=== PATIENT | female | born 1945 | race Caucasian/White ===

== ENCOUNTER → 2016-08-12 | Outpatient (CLI) | payer MEDICARE, BC | END | disposition home or self-care (01) | LOC: LABWHC1 08:29 | PROVIDERS: ATTEND Obstetrics & Gynecology | DX: E07.9 Disorder of thyroid, unspecified (principal) | CPT/HCPCS: 36415; 84443; 84481 ==

== ENCOUNTER → 2017-09-11 | Outpatient (CLI) | payer MEDICARE, BC ==
[2017-09-11 10:21] LABS: Partial Thromboplastin Time 25.2 sec (22.0-30.0); Prothrombin Time 9.6 sec (9.0-12.0)
[2017-09-11 10:34] LABS: Anion Gap 8 mmol/L; Blood Urea Nitrogen 14 mg/dL (7-17); Calcium 9.5 mg/dL (8.4-10.2); Carbon Dioxide 28 mmol/L (22-30); Chloride 101 mmol/L (98-107); Glucose 87 mg/dL (74-99); Potassium 4.5 mmol/L (3.5-5.1); Sodium 137 mmol/L (137-145)
[2017-09-11 11:00] LABS: Appearance,Urine Clear (Clear); Bacteria,Urine Rare /hpf; Bilirubin,Urine Negative (Negative); Blood,Urine Negative (Negative); Color,Urine Yellow; Glucose,Urine (UA) Negative (Negative); Ketones,Urine Negative (Negative); Leukocyte Esterase,Urine Large (Negative); Mucus,Urine Rare /hpf; Protein,Urine Negative (Negative); RBC,Urine <1 /hpf (0-5); Specific Gravity,Urine 1.011 (1.001-1.035); Squamous Epithelial Cell,Urine 4 /hpf (0-4); Urobilinogen,Urine <2.0 mg/dL (<2.0); WBC,Urine 23 /hpf (0-5)
[2017-09-11 11:02] LABS: Basophils % (A) 1 %; Eosinophils # (A) 0.2 k/uL (0-0.7); Eosinophils % (A) 2 %; HCT 42.6 % (34.0-46.0); HGB 14.2 gm/dL (11.4-16.0); Lymphocytes # (A) 1.7 k/uL (1.0-4.8); Lymphocytes % (A) 24 %; MCH 29.6 pg (25.0-35.0); MCHC 33.2 g/dL (31.0-37.0); MCV 89.3 fL (80.0-100.0); Mean Platelet Volume 7.6; Monocytes # (A) 0.6 k/uL (0-1.0); Monocytes % (A) 8 %; Neutrophils # (A) 4.5 k/uL (1.3-7.7); Neutrophils % (A) 63 %; Platelet Count 243 k/uL (150-450); RBC 4.78 m/uL (3.80-5.40); RDW 13.1 % (11.5-15.5); WBC 7.2 k/uL (3.8-10.6)
--- NOTE | 2017-09-11 15:55 | XR ---
EXAMINATION TYPE: XR chest 2V DATE OF EXAM: 09/11/2017 COMPARISON: 04/10/2017 HISTORY: Z01.818 TECHNIQUE: Frontal and lateral views of the chest are obtained. FINDINGS: There is no focal air space opacity, pleural effusion, or pneumothorax seen. The cardiac silhouette size is stable. Interstitium is prominent and stable. The osseous structures are intact. IMPRESSION: No acute cardiopulmonary process. Stable borderline heart size and possible interstitial lung disease.
== END | disposition home or self-care (01) ==
LOC: LABPAT 08:50
PROVIDERS: ATTEND Orthopaedic Surgery Orthopaedic Surgery of the Spine
DX: Z01.818 Encounter for other preprocedural examination (principal); G95.9 Disease of spinal cord, unspecified
CPT/HCPCS: 36415; 71046; 80048; 81001; 85025; 85610; 85730; 86850; 86900; 86901

== ENCOUNTER 2017-09-18 08:46 | Observation (INO) | payer MEDICARE, BC ==
[2017-09-18 09:27] LABS: Basophils % (A) 0 %; Eosinophils # (A) 0.6 k/uL (0-0.7); Eosinophils % (A) 5 %; HCT 43.5 % (34.0-46.0); HGB 14.9 gm/dL (11.4-16.0); Lymphocytes % (A) 8 %; MCH 30.2 pg (25.0-35.0); MCHC 34.4 g/dL (31.0-37.0); MCV 87.8 fL (80.0-100.0); Mean Platelet Volume 7.4; Monocytes # (A) 0.8 k/uL (0-1.0); Monocytes % (A) 7 %; Neutrophils # (A) 9.9 k/uL (1.3-7.7); Neutrophils % (A) 79 %; Platelet Count 273 k/uL (150-450); RBC 4.95 m/uL (3.80-5.40); RDW 13.1 % (11.5-15.5); WBC 12.5 k/uL (3.8-10.6)
--- NOTE | 2017-09-18 09:36 | CT ---
EXAMINATION TYPE: CT brain wo con DATE OF EXAM: 09/18/2017 COMPARISON: 05/18/2015 HISTORY: 72-year-old female Syncope TECHNIQUE: Examination was done in axial plane without intravenous contrast. Coronal and sagittal r econstructions performed. CT DLP: 1121 mGycm Automated exposure control for dose reduction was used. FINDINGS: There is no evidence of acute intracranial hemorrhage, acute ischemic changes, mass, mass-effect, or extra-axial fluid collection. There is no effacement of cerebral sulci or basal subarachnoid cister ns. There is no hydrocephalus. There is no midline shift. Ontiveros-white matter distinction is preserv ed. Paranasal sinuses and mastoid air cells well pneumatized. Orbits and globes are intact. IMPRESSION: No acute intracranial abnormality seen.
--- NOTE | 2017-09-18 09:37 | XR ---
EXAMINATION TYPE: XR chest 2V DATE OF EXAM: 09/18/2017 COMPARISON: 09/11/2017 TECHNIQUE: PA and lateral views submitted. HISTORY: Syncope FINDINGS: The lungs are clear and there is no pneumothorax, pleural effusion, or focal pneumonia. Interstitia l process noted with degenerative change of the spine arthropathy of the shoulders. Surgical clips in the right upper quadrant. Arthropathy of the shoulders noted. IMPRESSION: 1. No acute process. Correlate for chronic interstitial lung disease.
[2017-09-18 09:43] LABS: Prothrombin Time 9.6 sec (9.0-12.0)
[2017-09-18 10:59] LABS: Albumin 3.8 g/dL (3.5-5.0); Calcium 9.5 mg/dL (8.4-10.2); Magnesium 2.1 mg/dL (1.6-2.3); Potassium 4.5 mmol/L (3.5-5.1); Total Bilirubin 0.6 mg/dL (0.2-1.3); Total Protein 6.6 g/dL (6.3-8.2)
--- NOTE | 2017-09-18 12:02 | ED ---
General Adult HPI - General Chief complaint: Fall Stated complaint: Syncope Time Seen by Provider: 09/18/17 08:53 Source: patient, EMS Mode of arrival: EMS Limitations: no limitations - History of Present Illness Initial comments: Patient complains of chest pain this morning. She also had lightheadedness and dizziness. She does not feel well. She has no back pain. She has no neck pain or stiffness. She has no headache. She was not doing anything when she began to feel this way. She has taken no medication for this. She denies any sick contacts. She has no swelling in the arms or legs. She has no palpitations. - Related Data Home Medications Medication Instructions Recorded Confirmed Ipratropium-Albuterol Nebulize 3 ml INHALATION RT-QID PRN 05/18/15 09/18/17 [Duoneb 0.5 mg-3 mg/3 ml Soln] Losartan Potassium 100 mg PO QAM 05/18/15 09/18/17 Simvastatin [Zocor] 40 mg PO DAILY 05/18/15 09/18/17 Albuterol Inhaler [Ventolin Hfa 2 puff INHALATION RT-QID PRN 04/10/17 09/18/17 Inhaler] Aspirin EC [Ecotrin Low Dose] 81 mg PO DAILY 04/10/17 09/18/17 Nitrofurantoin Monohyd/M-Cryst 100 mg PO Q12HR 09/14/17 09/18/17 [Macrobid] predniSONE 10 mg PO DAILY PRN 09/14/17 09/18/17 Previous Rx's Medication Instructions Recorded Budesonide [Pulmicort] 0.5 mg INHALATION BID #60 neb 04/12/17 Pantoprazole [Protonix] 40 mg PO AC-BRKFST #30 tab 04/12/17 Allergies Allergy/AdvReac Type Severity Reaction Status Date / Time No Known Allergies Allergy Verified 09/18/17 09:49 Review of Systems ROS Statement: Those systems with pertinent positive or pertinent negative responses have been documented in the HPI. ROS Other: All systems not noted in ROS Statement are negative. Past Medical History Past Medical History: Asthma, Cancer, Hypertension Additional Past Medical History / Comment(s): skin ca History of Any Multi-Drug Resistant Organisms: None Reported Past Surgical History: Cholecystectomy, Heart Catheterization, Tonsillectomy, Tubal Ligation Additional Past Surgical History / Comment(s): cateract surg skin surg. 2 heart caths no stent Past Psychological History: No Psychological Hx Reported Smoking Status: Former smoker Past Alcohol Use History: Occasional Past Drug Use History: None Reported - Past Family History Brother(s) Family Medical History: Coronary Artery Disease (CAD) Additional Family Medical History / Comment(s): "bad heart" aneurysm Sister(s) Family Medical History: Cancer Additional Family Medical History / Comment(s): breast cancer Mother Family Medical History: Cancer, Coronary Artery Disease (CAD) Additional Family Medical History / Comment(s): "heart disease" lymphoma Father Family Medical History: Coronary Artery Disease (CAD) Additional Family Medical History / Comment(s): Patient has 2 children one daughter with Crohn's disease. General Exam Limitations: no limitations General appearance: alert, in no apparent distress Head exam: Present: atraumatic, normocephalic, normal inspection Eye exam: Present: normal appearance, PERRL, EOMI. Absent: scleral icterus, conjunctival injection, periorbital swelling ENT exam: Present: normal exam, mucous membranes moist Neck exam: Present: normal inspection. Absent: tenderness, meningismus, lymphadenopathy Respiratory exam: Present: normal lung sounds bilaterally. Absent: respiratory distress, wheezes, rales, rhonchi, stridor Cardiovascular Exam: Present: regular rate, normal rhythm, normal heart sounds. Absent: systolic murmur, diastolic murmur, rubs, gallop, clicks GI/Abdominal exam: Present: soft, normal bowel sounds. Absent: distended, tenderness, guarding, rebound, rigid Extremities exam: Present: normal inspection, full ROM, normal capillary refill. Absent: tenderness, pedal edema, joint swelling, calf tenderness Back exam: Present: normal inspection Neurological exam: Present: alert, oriented X3, CN II-XII intact Psychiatric exam: Present: normal affect, normal mood Skin exam: Present: warm, dry, intact, normal color. Absent: rash Course Vital Signs 09/18/17 09/18/17 09/18/17 08:48 09:58 11:31 Temperature 99.2 F Pulse Rate 96 87 98 Respiratory 16 16 16 Rate Blood Pressure 142/65 114/65 106/55 O2 Sat by Pulse 96 98 96 Oximetry EKG Findings - EKG Comments: EKG Findings:: Twelve-lead EKG shows ventricular rate 92 bpm, normal AL interval and QRS complex is, no ST elevation or depression, interpreted by me as normal sinus rhythm. Medical Decision Making - Medical Decision Making Patient complains of chest pain, lightheadedness. I'm concern for ACS. I will consult cardiology. Patient will be admitted to the hospital. - Lab Data Result diagrams: 09/18/17 09:05 09/18/17 09:55 Lab Results 09/18/17 09/18/17 09/18/17 Range/Units 09:05 09:05 09:55 WBC 12.5 H (3.8-10.6) k/uL RBC 4.95 (3.80-5.40) m/uL Hgb 14.9 (11.4-16.0) gm/dL Hct 43.5 (34.0-46.0) % MCV 87.8 (80.0-100.0) fL MCH 30.2 (25.0-35.0) pg MCHC 34.4 (31.0-37.0) g/dL RDW 13.1 (11.5-15.5) % Plt Count 273 (150-450) k/uL Neutrophils % 79 % Lymphocytes % 8 % Monocytes % 7 % Eosinophils % 5 % Basophils % 0 % Neutrophils # 9.9 H (1.3-7.7) k/uL Lymphocytes # 1.0 (1.0-4.8) k/uL Monocytes # 0.8 (0-1.0) k/uL Eosinophils # 0.6 (0-0.7) k/uL Basophils # 0.0 (0-0.2) k/uL PT 9.6 (9.0-12.0) sec INR 1.0 (<1.2) APTT 19.0 L (22.0-30.0) sec Sodium (137-145) mmol/L Potassium (3.5-5.1) mmol/L Chloride (98-107) mmol/L Carbon Dioxide (22-30) mmol/L Anion Gap mmol/L BUN (7-17) mg/dL Creatinine (0.52-1.04) mg/dL Est GFR (CKD-EPI)AfAm (>60 ml/min/1.73 sqM) Est GFR (CKD-EPI)NonAf (>60 ml/min/1.73 sqM) Glucose (74-99) mg/dL Calcium (8.4-10.2) mg/dL Magnesium (1.6-2.3) mg/dL Total Bilirubin (0.2-1.3) mg/dL AST (14-36) U/L ALT (9-52) U/L Alkaline Phosphatase (38-126) U/L Troponin I <0.012 (0.000-0.034) ng/mL Total Protein (6.3-8.2) g/dL Albumin (3.5-5.0) g/dL 09/18/17 Range/Units 09:55 WBC (3.8-10.6) k/uL RBC (3.80-5.40) m/uL Hgb (11.4-16.0) gm/dL Hct (34.0-46.0) % MCV (80.0-100.0) fL MCH (25.0-35.0) pg MCHC (31.0-37.0) g/dL RDW (11.5-15.5) % Plt Count (150-450) k/uL Neutrophils % % Lymphocytes % % Monocytes % % Eosinophils % % Basophils % % Neutrophils # (1.3-7.7) k/uL Lymphocytes # (1.0-4.8) k/uL Monocytes # (0-1.0) k/uL Eosinophils # (0-0.7) k/uL Basophils # (0-0.2) k/uL PT (9.0-12.0) sec INR (<1.2) APTT (22.0-30.0) sec Sodium 139 (137-145) mmol/L Potassium 4.5 (3.5-5.1) mmol/L Chloride 104 (98-107) mmol/L Carbon Dioxide 24 (22-30) mmol/L Anion Gap 11 mmol/L BUN 20 H (7-17) mg/dL Creatinine 0.83 (0.52-1.04) mg/dL Est GFR (CKD-EPI)AfAm 83 (>60 ml/min/1.73 sqM) Est GFR (CKD-EPI)NonAf 72 (>60 ml/min/1.73 sqM) Glucose 101 H (74-99) mg/dL Calcium 9.5 (8.4-10.2) mg/dL Magnesium 2.1 (1.6-2.3) mg/dL Total Bilirubin 0.6 (0.2-1.3) mg/dL AST 20 (14-36) U/L ALT 40 (9-52) U/L Alkaline Phosphatase 98 (38-126) U/L Troponin I (0.000-0.034) ng/mL Total Protein 6.6 (6.3-8.2) g/dL Albumin 3.8 (3.5-5.0) g/dL Disposition Clinical Impression: Chest pain Disposition: ADMITTED IP TO THIS HOSP Condition: Fair Referrals: Rich Avila MD [Primary Care Provider] - 1-2 days Time of Disposition: 12:01
[2017-09-18] MEDS ORDERED: ONDANSETRON 4 MG/2 ML VIAL IVP PRN (12:09)
[2017-09-18] MEDS ORDERED: NALOXONE 0.4 MG/ML 1 ML VIAL IV PRN (12:09)
[2017-09-18] MEDS ORDERED: ALBUTEROL INHALER 60 PUFF/8 GM INHALER INHALATION PRN (12:11)
--- NOTE | 2017-09-18 14:44 | P.PN ---
Progress Note - Text Progress Note Date: 09/18/17 The patient is a 72-year-old female who is known to our service. She had been scheduled to undergo anterior cervical discectomy and fusion for her cervical stenosis and upper extremity radiculopathy, scheduled for this September 20. She presented today after having an episode of passing out at home from a standing position. She says she stood up from her bed and almost blacked out and fell to the floor and was unable to get up after that. She denies specific chest pain or lightheadedness. She says that she was brought to the emergency room via ambulance is being admitted in terms of her heart issues. She denies any chest pain or shortness of breath but she says that she does have some chest heaviness currently she relates this to her asthma. She is known to our service for her cervical spine issues. She is known to have cervical disc degeneration with some stenosis at her cervical spine. She has neck pain with upper extremity radiculopathy and has been through conservative treatment however has not had any significant benefit despite conservative care. She had been scheduled for surgical intervention for this week September 20 for anterior cervical discectomy and fusion. This is a surgery that would likely last approximately 2 hours and would have approximately 100 mL of blood loss under general anesthetic. She had undergone some screening and preoperative evaluation for clearance for this and was planning to proceed with her surgery for Monday. Given this new episode, we will certainly have to see if she would be medically cleared for surgical intervention. THE SURGERY IS NOT EMERGENT. The patient has been having conservative treatment and is interested in pursuing surgery as soon as she is able but given these new episodes, it would be okay for the patient to be canceled for this Monday to be rescheduled at a later date when she would be cleared. Currently she is hoping that she can be cleared and that will be up to medicine and cardiology service. I discussed this with her and discussed her risks of surgical intervention in the face of cardiac issues and she understands. We will discuss the case further with medicine and cardiology once further workup has been performed to see further recommendations if she is able to proceed with surgery
[2017-09-18 15:26] LABS: Appearance,Urine Cloudy (Clear); Bacteria,Urine Rare /hpf; Bilirubin,Urine Negative (Negative); Blood,Urine Negative (Negative); Color,Urine Yellow; Glucose,Urine (UA) Negative (Negative); Ketones,Urine Negative (Negative); Leukocyte Esterase,Urine Large (Negative); Mucus,Urine Rare /hpf; Nitrite,Urine Negative (Negative); Protein,Urine Negative (Negative); RBC,Urine 3 /hpf (0-5); Specific Gravity,Urine 1.015 (1.001-1.035); Squamous Epithelial Cell,Urine 1 /hpf (0-4); Urobilinogen,Urine <2.0 mg/dL (<2.0); WBC,Urine 126 /hpf (0-5)
[2017-09-18] MEDS: MORPHINE SULFATE 4 MG/ML SYRINGE IV PRN ×2 (15:54→20:14)
--- NOTE | 2017-09-18 19:06 | P.HPIM ---
History of Present Illness H&P Date: 09/18/17 Chief Complaint: Chest congestion, lightheadedness 72 years old female patient of Dr. Austin Prado, Dr. Guadalupe with past medical history of asthma, skin cancer, hypertension, osteoarthritis cervical stenosis requiring elective cervical spine surgery by Dr. Prado in 2 days, presented last night with shortness of breath chest congestion nausea chills nonproductive cough that started few days ago. She was started on steroids, nebulized budesonide and albuterol, and antibiotic which she cannot recall patient was recently cleared by Dr. Holcomb for a stress test 1-1/2 weeks ago As per ER history, patient was coming in for chest pain, but rather the patient past complaint of chest congestion and lightheadedness, chills and cough shortness of breath. Patient was lightheaded, patient denies any syncope however her legs gave out, she does have chronic bilateral upper extremity numbness and chronic bilateral lower extremity weakness as a result of cervical stenosis with myelopathy, worse after [place] time. Hence the elective surgery coming up in 2 days and I was a bit disappointed on the ER triaging for this patient as the patient is coming in for the cardiac pathway,. The ER physician is not aware about the recent normal stress test 1-1/2 weeks nor is he aware about the scheduled cervical spine surgery in 2 days. Review of records shows that she was last admitted from our facility April 2017 for asthma exacerbation, no imaging studies performed at that time except for chest x-ray, no chest CT. patient is a former smoker, no previous intubations for her asthma, Emergency room, imaging studies include CT of the brain that failed to reveal any acute intracranial abnormality, chest x-ray shows no acute pulmonary process , patient is chronic interstitial lung disease, EKG shows normal sinus rhythm with right axis deviation, urinalysis shows 126 WBC with pyuria and leukocytosis of 12.5 troponins 2.01 2.012, consult made with Dr. Guadalupe with CT high resolution, treat urinary tract infection and acute bronchitis, and shortness of breath . D-dimer to be obtained, ceftriaxone IV for UTI, cultures to be obtained Review of Systems Constitutional: Reports as per HPI, Reports chills, Denies anorexia, Denies chronic headaches, Denies chronic pain, Denies daytime sleepiness, Denies fatigue, Denies fever, Denies lethargy, Denies malaise, Denies night sweats, Denies poor appetite, Denies sweats, Denies weakness, Denies weight gain, Denies weight loss Ears, nose, mouth and throat: Reports as per HPI, Reports nasal congestion, Denies ant. neck pain, Denies bleeding gums, Denies dental pain, Denies dysphagia, Denies epistaxis, Denies headache, Denies hoarseness, Denies mouth pain, Denies nasal discharge, Denies neck fullness/pressure, Denies neck lump, Denies nose pain, Denies odynophagia, Denies post-nasal drip, Denies sinus pain , Denies sinus pressure, Denies swelling in mouth, Denies swelling in throat, Denies sore throat, Denies vertigo, Denies voice changes Cardiovascular: Reports as per HPI, Reports dyspnea on exertion, Reports shortness of breath Respiratory: Reports cough Gastrointestinal: Reports as per HPI, Denies abdominal pain, Denies belching, Denies bloating, Denies BRBPR, Denies change in bowel habits, Denies coffee ground emesis, Denies constipation, Denies diarrhea, Denies dyspepsia, Denies early satiety, Denies excessive gas, Denies heartburn, Denies hematemesis, Denies hematochezia, Denies indigestion, Denies jaundice, Denies lactose intolerance, Denies loss of appetite, Denies melena, Denies nausea, Denies vomiting Genitourinary: Reports as per HPI, Denies abnormal vaginal bleeding, Denies decreased libido, Denies difficulty conceiving, Denies difficulty voiding, Denies dysmenorrhea, Denies dyspareunia, Denies dysuria, Denies flank pain, Denies genital sores, Denies hematuria, Denies hot flashes, Denies incomplete emptying, Denies kidney stones, Denies menorrhagia, Denies mixed incontinence, Denies nocturia, Denies pelvic pain, Denies post void dribbling, Denies , Denies prolapse symptoms, Denies stress incontinence, Denies urge incontinence , Denies urgency, Denies urinary frequency, Denies vaginal discharge, Denies vaginal dryness, Denies vaginal itching, Denies vaginal odor Menstruation: Reports as per HPI Musculoskeletal: Reports as per HPI, Denies arm numbness/tingling, Denies atrophy, Denies fractures, Denies frequent falls, Denies gait dysfunction, Denies hot joints, Denies leg numbness/tingling, Denies limitation of motion, Denies loss of height, Denies low back pain, Denies morning stiffness, Denies muscle cramps, Denies muscle weakness, Denies myalgias, Denies neck pain, Denies neck stiffness, Denies prior amputations, Denies redness of joints, Denies shooting arm pain, Denies shooting leg pain Integumentary: Reports as per HPI, Denies acne, Denies boils, Denies brittle nails, Denies change in hair/nails, Denies color changes, Denies darkening of skin, Denies depigmentation, Denies dryness, Denies foot/leg ulcers, Denies growths, Denies hirsutism, Denies lesions, Denies onychomycosis, Denies pruritus , Denies rash, Denies sores, Denies striae, Denies unusual bruising, Denies wounds Neurological: Reports as per HPI, Reports gait dysfunction, Reports numbness, Reports paresthesias, Denies aphasia, Denies ataxia, Denies balance difficulties , Denies burning pain, Denies change in mentation, Denies change in smell/taste , Denies change in speech, Denies confusion, Denies convulsions, Denies double vision, Denies head injury, Denies headaches, Denies hearing difficulties, Denies lack of coordination, Denies loss of vision, Denies memory loss, Denies migraines, Denies motor disturbance, Denies paralysis, Denies seizures, Denies sensory deficit, Denies spasticity, Denies syncope, Denies tic, Denies tingling , Denies transient paralysis, Denies tremors, Denies vertigo, Denies weakness, Denies visual changes Psychiatric: Reports as per HPI, Denies anhedonia, Denies anxiety, Denies anxiety attacks, Denies change in appetite, Denies change in libido, Denies change in sleep habits, Denies confusion, Denies depression, Denies difficulty concentrating, Denies disorientation, Denies hallucinations, Denies hopelessness , Denies hypersomnia, Denies insomnia, Denies irritability, Denies memory loss, Denies mood swings, Denies paranoia, Denies sadness/tearfulness, Denies sleep disturbances, Denies suicidal ideation Endocrine: Reports as per HPI, Denies cold intolerance, Denies deepening of the voice, Denies excessive sweating, Denies excessive thirst, Denies fatigue, Denies flushing, Denies heat intolerance, Denies high blood sugars, Denies increase in ring/shoe/hat size, Denies low blood sugars, Denies nocturia, Denies palpitations, Denies polydipsia, Denies polyphagia, Denies polyuria, Denies proptosis, Denies recent glucocorticoid use, Denies thyroid mass, Denies weight change Hematologic/Lymphatic: Reports as per HPI, Denies easy bleeding, Denies easy bruising, Denies lymphadenopathy, Denies lymphedema, Denies thrombophilia Allergic/Immunologic: Reports as per HPI, Denies allergic rhinitis, Denies anaphylaxis, Denies angioedema, Denies gluten intolerance, Denies persistent infections, Denies seasonal allergies, Denies urticaria, Denies wheezing Past Medical History Past Medical History: Asthma, Cancer, Hyperlipidemia, Hypertension, Osteoarthritis (OA) Additional Past Medical History / Comment(s): Current UIT-has 2 more doses of macrobid to take yet, skin cancer with removals, arthritis multiple joints, back and cervical pain. History of Any Multi-Drug Resistant Organisms: None Reported Past Surgical History: Cholecystectomy, Heart Catheterization, Hysterectomy, Tonsillectomy, Tubal Ligation Additional Past Surgical History / Comment(s): 2 cardiac caths without intervention, bilateral cataract removal with lens implants, skin cancer removals, cyst removed from neck, colonoscopy. Past Anesthesia/Blood Transfusion Reactions: No Reported Reaction Additional Past Anesthesia/Blood Transfusion Reaction / Comment(s): Pt has never received blood. Smoking Status: Former smoker - Past Family History Brother(s) Family Medical History: Coronary Artery Disease (CAD) Additional Family Medical History / Comment(s): "bad heart" aneurysm Sister(s) Family Medical History: Cancer Additional Family Medical History / Comment(s): breast cancer Mother Family Medical History: Cancer, Coronary Artery Disease (CAD) Additional Family Medical History / Comment(s): Lymphoma, had a pacemaker. Mother at the age of 92yrs. Father Family Medical History: Coronary Artery Disease (CAD), Myocardial Infarction (NC ) Additional Family Medical History / Comment(s): Father of a NC at the age of 63 yrs. Medications and Allergies Home Medications Medication Instructions Recorded Confirmed Type Ipratropium-Albuterol Nebulize 3 ml INHALATION RT-QID PRN 05/18/15 09/18/17 History [Duoneb 0.5 mg-3 mg/3 ml Soln] Losartan Potassium 100 mg PO QAM 05/18/15 09/18/17 History Simvastatin [Zocor] 40 mg PO DAILY 05/18/15 09/18/17 History Albuterol Inhaler [Ventolin Hfa 2 puff INHALATION RT-QID PRN 04/10/17 09/18/17 History Inhaler] Aspirin EC [Ecotrin Low Dose] 81 mg PO DAILY 04/10/17 09/18/17 History Budesonide [Pulmicort] 0.5 mg INHALATION BID #60 neb 04/12/17 09/18/17 Rx Pantoprazole [Protonix] 40 mg PO AC-BRKFST #30 tab 04/12/17 09/18/17 Rx Nitrofurantoin Monohyd/M-Cryst 100 mg PO Q12HR 09/14/17 09/18/17 History [Macrobid] predniSONE 10 mg PO DAILY PRN 09/14/17 09/18/17 History Allergies Allergy/AdvReac Type Severity Reaction Status Date / Time No Known Allergies Allergy Verified 09/18/17 09:49 Physical Exam Vitals: Vital Signs Temp Pulse Pulse Resp BP BP Pulse Ox 09/18/17 18:07 95 16 09/18/17 18:02 98 F 95 16 124/61 93 L 09/18/17 17:25 99.2 F 96 16 123/54 96 09/18/17 15:42 96 16 123/54 96 09/18/17 14:29 98 16 118/60 95 09/18/17 13:08 82 16 123/58 98 09/18/17 11:31 98 16 106/55 96 09/18/17 09:58 87 16 114/65 98 09/18/17 08:48 99.2 F 96 16 142/65 96 Intake and Output 09/18/17 09/18/17 09/18/17 06:59 14:59 22:59 Other: Voiding Method Toilet Weight 83.915 kg 83.1 kg Patient Weight 09/19/17 06:59 Weight 83.1 kg - Constitutional General appearance: average body habitus, disheveled, no acute distress - EENT Eyes: anicteric sclerae, EOMI, PERRLA, dentition normal, normal appearance ENT: NA/AT, normal oropharynx - Neck Neck: normal ROM - Respiratory Respiratory: bilateral: CTA, negative: diminished, dullness, rales - Cardiovascular Rhythm: regular Heart sounds: normal: S1, S2 Abnormal Heart Sounds: no systolic murmur, no diastolic murmur, no rub, no S3 Gallop, no S4 Gallop, no click, no other - Gastrointestinal General gastrointestinal: normal bowel sounds, soft - Integumentary Integumentary: decreased turgor, normal - Neurologic Neurologic: CNII-XII intact - Musculoskeletal Musculoskeletal: strength equal bilaterally - Psychiatric Psychiatric: A&O x's 3, appropriate affect, intact judgment & insight Results CBC & Chem 7: 09/18/17 09:05 09/18/17 09:55 Labs: Abnormal Lab Results - Last 24 Hours (Table) 09/18/17 09/18/17 09/18/17 Range/Units 09:05 09:05 09:55 WBC 12.5 H (3.8-10.6) k/uL Neutrophils # 9.9 H (1.3-7.7) k/uL APTT 19.0 L (22.0-30.0) sec BUN 20 H (7-17) mg/dL Glucose 101 H (74-99) mg/dL Urine Appearance (Clear) Ur Leukocyte Esterase (Negative) Urine WBC (0-5) /hpf Urine WBC Clumps (None) /hpf Urine Bacteria (None) /hpf Urine Mucus (None) /hpf 09/18/17 Range/Units 15:18 WBC (3.8-10.6) k/uL Neutrophils # (1.3-7.7) k/uL APTT (22.0-30.0) sec BUN (7-17) mg/dL Glucose (74-99) mg/dL Urine Appearance Cloudy H (Clear) Ur Leukocyte Esterase Large H (Negative) Urine WBC 126 H (0-5) /hpf Urine WBC Clumps Rare H (None) /hpf Urine Bacteria Rare H (None) /hpf Urine Mucus Rare H (None) /hpf Laboratory Results WBC 12.5 k/uL (3.8-10.6) H 03/12/18 09:05 RBC 4.95 m/uL (3.80-5.40) 09/18/17 09:05 Hgb 14.9 gm/dL (11.4-16.0) 09/18/17 09:05 Hct 43.5 % (34.0-46.0) 09/18/17 09:05 MCV 87.8 fL (80.0-100.0) 09/18/17 09:05 MCH 30.2 pg (25.0-35.0) 09/18/17 09:05 MCHC 34.4 g/dL (31.0-37.0) 09/18/17 09:05 RDW 13.1 % (11.5-15.5) 09/18/17 09:05 Plt Count 273 k/uL (150-450) 09/18/17 09:05 Neutrophils % 79 % 09/18/17 09:05 Lymphocytes % 8 % 09/18/17 09:05 Monocytes % 7 % 09/18/17 09:05 Eosinophils % 5 % 09/18/17 09:05 Basophils % 0 % 09/18/17 09:05 Neutrophils # 9.9 k/uL (1.3-7.7) H 09/18/17 09:05 Lymphocytes # 1.0 k/uL (1.0-4.8) 09/18/17 09:05 Monocytes # 0.8 k/uL (0-1.0) 09/18/17 09:05 Eosinophils # 0.6 k/uL (0-0.7) 09/18/17 09:05 Basophils # 0.0 k/uL (0-0.2) 09/18/17 09:05 PT 9.6 sec (9.0-12.0) 09/18/17 09:05 INR 1.0 (<1.2) 09/18/17 09:05 APTT 19.0 sec (22.0-30.0) L 09/18/17 09:05 Sodium 139 mmol/L (137-145) 09/18/17 09:55 Potassium 4.5 mmol/L (3.5-5.1) 09/18/17 09:55 Chloride 104 mmol/L (98-107) 09/18/17 09:55 Carbon Dioxide 24 mmol/L (22-30) 09/18/17 09:55 Anion Gap 11 mmol/L 09/18/17 09:55 BUN 20 mg/dL (7-17) H 09/18/17 09:55 Creatinine 0.83 mg/dL (0.52-1.04) 09/18/17 09:55 Est GFR (CKD-EPI)AfAm 83 (>60 ml/min/1.73 sqM) 09/18/17 09:55 Est GFR (CKD-EPI)NonAf 72 (>60 ml/min/1.73 sqM) 09/18/17 09:55 Glucose 101 mg/dL (74-99) H 09/18/17 09:55 Calcium 9.5 mg/dL (8.4-10.2) 09/18/17 09:55 Magnesium 2.1 mg/dL (1.6-2.3) 09/18/17 09:55 Total Bilirubin 0.6 mg/dL (0.2-1.3) 09/18/17 09:55 AST 20 U/L (14-36) 09/18/17 09:55 ALT 40 U/L (9-52) 09/18/17 09:55 Alkaline Phosphatase 98 U/L (38-126) 09/18/17 09:55 Troponin I <0.012 ng/mL (0.000-0.034) 09/18/17 16:03 Total Protein 6.6 g/dL (6.3-8.2) 09/18/17 09:55 Albumin 3.8 g/dL (3.5-5.0) 09/18/17 09:55 Urine Color Yellow 09/18/17 15:18 Urine Appearance Cloudy (Clear) H 09/18/17 15:18 Urine pH 6.0 (5.0-8.0) 09/18/17 15:18 Ur Specific [place] 1.015 (1.001-1.035) 09/18/17 15:18 Urine Protein Negative (Negative) 09/18/17 15:18 Urine Glucose (UA) Negative (Negative) 09/18/17 15:18 Urine Ketones Negative (Negative) 09/18/17 15:18 Urine Blood Negative (Negative) 09/18/17 15:18 Urine Nitrite Negative (Negative) 09/18/17 15:18 Urine Bilirubin Negative (Negative) 09/18/17 15:18 Urine Urobilinogen <2.0 mg/dL (<2.0) 09/18/17 15:18 Ur Leukocyte Esterase Large (Negative) H 09/18/17 15:18 Urine RBC 3 /hpf (0-5) 09/18/17 15:18 Urine WBC 126 /hpf (0-5) H 09/18/17 15:18 Urine WBC Clumps Rare /hpf (None) H 09/18/17 15:18 Ur Squamous Epith Cells 1 /hpf (0-4) 09/18/17 15:18 Urine Bacteria Rare /hpf (None) H 09/18/17 15:18 Urine Mucus Rare /hpf (None) H 09/18/17 15:18 Thrombosis Risk Factor Assmnt - DVT/VTE Prophylaxis DVT/VTE Prophylaxis: Pharmacologic Prophylaxis ordered - Choose All That Apply Any of the Below Risk Factors Present?: Yes Each Factor Represents 1 point: Obesity (BMI >25) Other Risk Factors: Yes Each Risk Factor Represents 2 Points: Age 61-74 years, Malignancy Other congenital or acquired thrombophilia - If yes, enter type in comment: No Thrombosis Risk Factor Assessment Total Risk Factor Score: 5 Thrombosis Risk Factor Assessment Level: High Risk Assessment and Plan Plan: 1. Lightheadedness and chest heaviness, cough presenting with mild asthma exacerbation, mild hypoxemic respiratory failure patient would have IV hydration and evaluate for orthostasis, no syncope on presentation, patient would be started on Rocephin for the urinary tract infection that was seen, consult with Dr. Guadalupe for the shortness of breath,, Solu-Medrol short course, and nebulized albuterol and Atrovent, O2 supplementation, Rocephin for trach bronchitis as well, patient already had undergone stress test 1-1/[address] Sloan for which she has been cleared, we would also monitor for benign positional vertigo and vestibular neuronitis 2. Acute urinary tract infection present prior to admission, MAXIMUM TEMPERATURE of 99.2 on admission, urine and blood cultures will be obtained, Rocephin initiated IV, patient was on nitrofurantoin prior to admission 3. Near syncope, most likely secondary to urinary tract infection and dehydration, IV hydration, and orthostasis with obtain, patient is not normotensive during this few hours from admission continue to monitor 4. Mild hypoxemia, most likely secondary to COPD exacerbation, X 5 Cervical spine stenosis with cervical myelopathy, requiring anterior cervical discectomy and fusion, based on recent urinary tract infection and asthma exacerbation, surgery would at least be postponed for at least [address] Prado is aware of her admission, 6 Interstitial lung disease as noted on x-ray, CT chest,, nebulized albuterol Atrovent, Pulmicort and Solu-Medrol. Continue Singulair and Pulmicort 0.5 twice a day 7. Mild intermittent asthma exacerbation, treatment as #1 8. Hypertension currently on losartan, orthostasis would be obtained secondary to lightheadedness, 7. Osteoarthritis 8. Hyperlipidemia on simvastatin GI prophylaxis and DVT prophylaxis, Lovenox and Pepcid
[2017-09-18] MEDS: BUDESONIDE 0.5 MG/2 ML NEBU INHALATION SCH (19:07)
[2017-09-18] MEDS: IPRATROPIUM-ALBUTEROL 3 ML NEB INHALATION PRN (19:07)
[2017-09-18] MEDS: FAMOTIDINE 20 MG TAB PO SCH (20:15)
[2017-09-18] MEDS: cefTRIAXone IN SWFI 1,000 MG/10 ML SYRINGE IVP SCH (20:15)
[2017-09-18] MEDS: methylPREDNISolone SOD SUCCI 125 MG/2 ML VIAL IV SCH (21:20)
--- NOTE | 2017-09-18 21:53 | CT ---
EXAMINATION TYPE: CT chest wo con DATE OF EXAM: 09/18/2017 COMPARISON: NONE HISTORY: SOB, cough, ILD CT DLP: 830.4 mGycm. Automated Exposure Control for Dose Reduction was Utilized. TECHNIQUE: CT scan of the thorax is performed without IV contrast. FINDINGS: Scan was performed in supine and prone position. There is extensive subpleural interstitial infiltrate in both lungs throughout. There is no mobile pl eural fluid. There is mild pleural thickening at the posterior lung bases. There is no pericardial ef fusion. There are a few mediastinal lymph nodes that measure up to 1.5 cm. There is no sign of aneury sm of aorta. There is no pericardial effusion. I see no significant bronchiectasis. There is no evide nce of a pulmonary mass. There is also mild subcutaneous pleural groundglass interstitial density. No significant pulmonary volume loss. IMPRESSION: Extensive subpleural interstitial infiltrates throughout the lungs consistent with modera te pulmonary fibrosis. No evidence of any significant emphysema or bronchiectasis. There is no signif icant pulmonary volume loss. Nonspecific mild mediastinal and bronchial adenopathy.
[2017-09-18] MEDS ORDERED: ENOXAPARIN 120 MG/0.8 ML SYRINGE SQ STA (23:08)
[2017-09-18] MEDS ORDERED: RX INFO: IV CONTRAST WAS GIVEN 1 EACH MISC MISCELLANE PRN (23:09)
[2017-09-19] MEDS: methylPREDNISolone SOD SUCCI 125 MG/2 ML VIAL IV SCH ×3 (00:14→11:11)
[2017-09-19 07:37] LABS: Basophils % (A) 0 %; Eosinophils % (A) 0 %; HCT 39.1 % (34.0-46.0); Lymphocytes % (A) 10 %; MCH 29.6 pg (25.0-35.0); MCHC 33.2 g/dL (31.0-37.0); MCV 89.2 fL (80.0-100.0); Mean Platelet Volume 7.2; Monocytes # (A) 0.2 k/uL (0-1.0); Monocytes % (A) 2 %; Neutrophils # (A) 8.3 k/uL (1.3-7.7); Neutrophils % (A) 86 %; Platelet Count 292 k/uL (150-450); RBC 4.39 m/uL (3.80-5.40); WBC 9.6 k/uL (3.8-10.6)
[2017-09-19 07:44] LABS: ALT 36 U/L (9-52); AST 20 U/L (14-36); Albumin 3.6 g/dL (3.5-5.0); Alkaline Phosphatase 81 U/L (38-126); Anion Gap 10 mmol/L; Blood Urea Nitrogen 22 mg/dL (7-17); Calcium 9.3 mg/dL (8.4-10.2); Carbon Dioxide 25 mmol/L (22-30); Chloride 100 mmol/L (98-107); Glucose 140 mg/dL (74-99); Potassium 4.9 mmol/L (3.5-5.1); Sodium 135 mmol/L (137-145); Total Bilirubin 0.7 mg/dL (0.2-1.3); Total Protein 6.3 g/dL (6.3-8.2)
--- NOTE | 2017-09-19 08:37 | CT ---
EXAMINATION TYPE: CT angio chest DATE OF EXAM: 09/19/2017 COMPARISON: 09/18/2017 HISTORY: Elevated D dimer CT DLP: 428.7 mGycm CONTRAST: CT chest with contrast and 3D reconstruction with MIP imaging is performed with IV Contrast, patient injected with 73 mL of Omnipaque 350. Contrast-enhanced CT of the chest was performed through the course of the pulmonary arteries with chelsey g and mediastinal window settings submitted. 3D reconstruction with MIP imaging was also performed. PULMONARY ARTERIES: The pulmonary arteries and their major tributaries are patent. I do not see joselyn dence for sizable filling defect to suggest pulmonary embolic process. LUNGS: Moderate radiopacity pulmonary fibrosis. No evidence for focal consolidation. No distinct ulna r nodule or mass. Small bilateral pleural effusions are noted. MEDIASTINUM: Thoracic aorta is of normal caliber,however, evaluation is limited given timing of the contrast bolus. If there is concern for thoracic aortic pathology consider ROBBIE. Correlate clinicall y . The heart is not enlarged. No evidence for mediastinal mass. No mediastinal lymph nodes greater than 1cm. HILAR STRUCTURES: No evidence for mass. No hilar lymph nodes greater than 1 cm. UPPER ABDOMEN: No significant abnormality is seen. IMPRESSION: 1. No evidence for Pulmonary embolism at this time.
[2017-09-19] MEDS: BUDESONIDE 0.5 MG/2 ML NEBU INHALATION SCH ×2 (08:43→21:37)
[2017-09-19] MEDS: IPRATROPIUM-ALBUTEROL 3 ML NEB INHALATION PRN ×2 (08:43→21:37)
[2017-09-19] MEDS: ATORVASTATIN 20 MG TAB PO SCH (11:10)
[2017-09-19] MEDS: LOSARTAN 50 MG TAB PO SCH (11:10)
[2017-09-19] MEDS: FAMOTIDINE 20 MG TAB PO SCH ×2 (11:10→20:41)
[2017-09-19] MEDS: ASPIRIN 81 MG PO SCH (11:25)
[2017-09-19] MEDS: cefTRIAXone IN SWFI 1,000 MG/10 ML SYRINGE IVP SCH (12:25)
--- NOTE | 2017-09-19 13:53 | P.CRDCN ---
History of Present Illness Consult date: 09/19/17 History of present illness: Mrs. Alvarenga is a pleasant 72-year-old female past medical history significant for dyslipidemia, hypertension, asthma and former tobacco use. We have been asked to see her in consultation for chest pain. She denies having ever had chest pain. She states she came in to the hospital after getting dizzy yesterday. She states she was feeling dizziness while walking to the bathroom to have a bowel movement, her legs felt weak and she fell to the floor and was unable to get herself up. She denies loss of consciousness. She denies associated shortness of breath, palpitations, nausea, vomiting or diaphoresis. She states she has been coughing lately and feeling mildly congested. She is also being treated on nitrofurantoin for urinary tract infection. She is scheduled for an elective cervical procedure this week. She was seen in the office week and a half ago by Dr. Garcia and underwent preoperative cardiac evaluation with echocardiogram and stress test. She had a Lexiscan stress test which was negative for reversible cardiac ischemia. Echocardiogram performed at that time revealed preserved left ventricular systolic function with ejection fraction 55%. No evidence of valvular heart disease. EKG on arrival reveals sinus mechanism with right axis deviation. No evidence of acute ST or T-wave abnormalities. Chest x-ray is negative for an acute cardiopulmonary process. CTA negative for pulmonary embolism. Laboratory data reviewed, hemoglobin 13.0, platelets 292, d-dimer 0.93, potassium 4.9, magnesium 2.1, cardiac enzymes negative 3, creatinine 0.7. Current cardiac medications include aspirin 81 mg daily, losartan 100 mg daily and simvastatin 40 mg daily. Review of Systems At the time of my exam: CONSTITUTIONAL: Complains of fever/chills at home. EYES: Denies blurred vision. Denies vision changes. Denies eye pain. EARS, NOSE, MOUTH & THROAT: Denies headache. Denies sore throat. Denies ear pain. CARDIOVASCULAR: Denies chest pain. Denies shortness of breath. Denies orthopnea. Denies PND. Denies palpitations. RESPIRATORY: Denies cough. GASTROINTESTINAL: Denies abdominal pain. Denies diarrhea. Denies constipation. Denies nausea. Denies vomiting. MUSCULOSKELETAL: Denies myalgias. INTEGUMENTARY: Denies pruitis. Denies rash. NEUROLOGIC: Denies numbness. Denies tingling. Denies weakness. PSYCHIATRIC: Denies anxiety. Denies depression. ENDOCRINE: Denies fatigue. Denies weight change. Denies polydipsia. Denies polyurina. GENITOURINARY: Denies burning, hematuria or urgency with micturation. HEMATOLOGIC: Denies history of anemia. Denies bleeding. Past Medical History Past Medical History: Asthma, Cancer, Hyperlipidemia, Hypertension, Osteoarthritis (OA) Additional Past Medical History / Comment(s): Current UIT-has 2 more doses of macrobid to take yet, skin cancer with removals, arthritis multiple joints, back and cervical pain. History of Any Multi-Drug Resistant Organisms: None Reported Past Surgical History: Cholecystectomy, Heart Catheterization, Hysterectomy, Tonsillectomy, Tubal Ligation Additional Past Surgical History / Comment(s): 2 cardiac caths without intervention, bilateral cataract removal with lens implants, skin cancer removals, cyst removed from neck, colonoscopy. Past Anesthesia/Blood Transfusion Reactions: No Reported Reaction Additional Past Anesthesia/Blood Transfusion Reaction / Comment(s): Pt has never received blood. Smoking Status: Former smoker - Past Family History Brother(s) Family Medical History: Coronary Artery Disease (CAD) Additional Family Medical History / Comment(s): "bad heart" aneurysm Sister(s) Family Medical History: Cancer Additional Family Medical History / Comment(s): breast cancer Mother Family Medical History: Cancer, Coronary Artery Disease (CAD) Additional Family Medical History / Comment(s): Lymphoma, had a pacemaker. Mother at the age of 92yrs. Father Family Medical History: Coronary Artery Disease (CAD), Myocardial Infarction ([place] ) Additional Family Medical History / Comment(s): Father of a [place] at the age of 63 yrs. Medications and Allergies Home Medications Medication Instructions Recorded Confirmed Type Ipratropium-Albuterol Nebulize 3 ml INHALATION RT-QID PRN 05/18/15 09/18/17 History [Duoneb 0.5 mg-3 mg/3 ml Soln] Losartan Potassium 100 mg PO QAM 05/18/15 09/18/17 History Simvastatin [Zocor] 40 mg PO DAILY 05/18/15 09/18/17 History Albuterol Inhaler [Ventolin Hfa 2 puff INHALATION RT-QID PRN 04/10/17 09/18/17 History Inhaler] Aspirin EC [Ecotrin Low Dose] 81 mg PO DAILY 04/10/17 09/18/17 History Budesonide [Pulmicort] 0.5 mg INHALATION BID #60 neb 04/12/17 09/18/17 Rx Pantoprazole [Protonix] 40 mg PO AC-BRKFST #30 tab 04/12/17 09/18/17 Rx Nitrofurantoin Monohyd/M-Cryst 100 mg PO Q12HR 09/14/17 09/18/17 History [Macrobid] predniSONE 10 mg PO DAILY PRN 09/14/17 09/18/17 History Allergies Allergy/AdvReac Type Severity Reaction Status Date / Time No Known Allergies Allergy Verified 09/18/17 09:49 Physical Exam Vitals: Vital Signs Temp Pulse Pulse Resp BP BP BP 09/19/17 12:00 97.7 F 94 18 09/19/17 08:58 82 09/19/17 08:45 82 09/19/17 08:00 97.5 F L 82 18 135/64 09/19/17 07:56 78 16 09/19/17 05:44 78 113/58 09/19/17 04:00 98.3 F 63 16 108/57 09/19/17 00:09 16 09/18/17 23:55 99.6 F 81 17 108/64 09/18/17 23:50 94 16 09/18/17 20:00 103 H 16 09/18/17 19:24 96 09/18/17 19:08 92 09/18/17 18:07 95 16 09/18/17 18:02 98 F 95 16 124/61 09/18/17 17:25 99.2 F 96 16 123/54 09/18/17 15:42 96 16 123/54 09/18/17 14:29 98 16 118/60 09/18/17 13:08 82 16 123/58 BP BP Pulse Ox 09/19/17 12:00 111/57 92 L 09/19/17 08:58 09/19/17 08:45 09/19/17 08:00 93 L 09/19/17 07:56 09/19/17 05:44 118/68 114/59 09/19/17 04:00 94 L 09/19/17 00:09 96 09/18/17 23:55 92 L 09/18/17 23:50 09/18/17 20:00 09/18/17 19:24 09/18/17 19:08 09/18/17 18:07 09/18/17 18:02 93 L 09/18/17 17:25 96 09/18/17 15:42 96 09/18/17 14:29 95 09/18/17 13:08 98 Intake and Output 09/18/17 09/19/17 09/19/17 22:59 06:59 14:59 Intake Total 200 Balance 200 Intake: Oral 200 Other: Voiding Method Toilet Toilet Toilet # Voids 1 1 Weight 83.1 kg Blood pressure 135/64 heart rate 82 afebrile maintaining oxygen saturation on room air GENERAL: This is a 72-year-old occasion female in no apparent distress at the time of my examination. Obese. HEENT: Head is atraumatic, normocephalic. Pupils are equal, round. Sclerae anicteric. Conjunctivae are clear. Mucous membranes of the mouth are moist. Neck is supple. There is no jugular venous distention. No carotid bruit is heard. LUNGS: Clear to auscultation no wheezes, rales or rhonchi. No chest wall tenderness is noted on palpation or with deep breathing. HEART: Regular rate and rhythm with systolic ejection murmur at the base, no rubs or gallops. S1 and S2 heard. ABDOMEN: Soft, nontender. Bowel sounds are heard. No organomegaly noted. EXTREMITIES: No evidence of peripheral edema and no calf tenderness noted. VASCULAR: Radial and dorsalis pedis pulses palpated, no evidence of clubbing. NEUROLOGIC: Patient is awake, alert and oriented x3. Results 09/19/17 06:58 09/19/17 06:58 Cardiac Enzymes 09/18/17 09/18/17 09/19/17 Range/Units 16:03 22:47 06:58 AST 20 (14-36) U/L Troponin I <0.012 <0.012 (0.000-0.034) ng/mL CBC 09/19/17 Range/Units 06:58 WBC 9.6 (3.8-10.6) k/uL RBC 4.39 (3.80-5.40) m/uL Hgb 13.0 (11.4-16.0) gm/dL Hct 39.1 (34.0-46.0) % Plt Count 292 (150-450) k/uL Comprehensive Metabolic Panel 09/19/17 Range/Units 06:58 Sodium 135 L (137-145) mmol/L Potassium 4.9 (3.5-5.1) mmol/L Chloride 100 (98-107) mmol/L Carbon Dioxide 25 (22-30) mmol/L BUN 22 H (7-17) mg/dL Creatinine 0.70 (0.52-1.04) mg/dL Glucose 140 H (74-99) mg/dL Calcium 9.3 (8.4-10.2) mg/dL AST 20 (14-36) U/L ALT 36 (9-52) U/L Alkaline Phosphatase 81 (38-126) U/L Total Protein 6.3 (6.3-8.2) g/dL Albumin 3.6 (3.5-5.0) g/dL Current Medications Generic Name Dose Route Start Last Admin Trade Name Freq PRN Reason Stop Dose Admin Albuterol/Ipratropium 3 ml 09/18/17 12:11 09/19/17 08:43 Duoneb 0.5 Mg-3 Mg/3 Ml Soln INHALATION 3 ml RT-QID PRN Administration Shortness Of Breath Aspirin 81 mg 09/19/17 09:00 09/19/17 11:25 Aspirin PO Not Given DAILY TORIBIO Atorvastatin Calcium 20 mg 09/19/17 09:00 09/19/17 11:10 Lipitor PO 20 mg DAILY TORIBIO Administration Budesonide 0.5 mg 09/18/17 20:00 09/19/17 08:43 Pulmicort INHALATION 0.5 mg RT-BID TORIBIO Administration Ceftriaxone Sodium 1,000 mg 09/18/17 20:00 09/19/17 12:25 Rocephin IVP 1,000 mg Q24HR TORIBIO Administration Famotidine 20 mg 09/18/17 21:00 09/19/17 11:10 Pepcid PO 20 mg BID TORIBIO Administration Losartan Potassium 100 mg 09/19/17 09:00 09/19/17 11:10 Cozaar PO 100 mg QAM TORIBIO Administration Methylprednisolone Sodium Succinate 40 mg 09/19/17 16:00 Solu-Medrol IV Q8HR TORIBIO Miscellaneous Information 1 each 09/18/17 23:09 Rx Info: Iv Contrast Was Given MISCELLANE 09/20/17 23:10 DAILY PRN Per Protocol Morphine Sulfate 4 mg 09/18/17 12:09 09/18/17 20:14 Morphine Sulfate (Inj) IV 4 mg Q4HR PRN Administration Severe Pain Naloxone HCl 0.2 mg 09/18/17 12:09 Narcan IV Q2M PRN Opioid Reversal Ondansetron HCl 4 mg 09/18/17 12:09 09/18/17 20:14 Zofran IVP 4 mg Q8HR PRN Administration Nausea And Vomiting Intake and Output 09/18/17 09/19/17 09/19/17 22:59 06:59 14:59 Intake Total 200 Balance 200 Intake: Oral 200 Other: Voiding Method Toilet Toilet Toilet # Voids 1 1 Weight 83.1 kg 09/19/17 06:58 09/19/17 06:58 Assessment and Plan Assessment: ASSESSMENT 1. Dizziness with no chest pain and no actual syncope. No EKG evidence of ischemia negative cardiac enzymes. Recent negative stress test last week. Orthostatics negative. Telemetry tracings of been unremarkable. An acute coronary event has been ruled out. 2. Hypertension 3. Dyslipidemia 4. Asthma with exacerbation 5. Obesity 6. Urinary tract infection PLAN No further cardiac workup necessary at this time. Continue with medical management of primary medical problems including asthma exacerbation and urinary tract infection. Nurse Practitioner note has been reviewed, I agree with a documented findings and plan of care. Patient was seen and examined.
[2017-09-19] MEDS ORDERED: MORPHINE ORAL SOLN 10 MG/5 ML CUP PO PRN (15:03)
[2017-09-19] MEDS: methylPREDNISolone SOD SUCCI 40 MG/ML 1 ML VIAL IV SCH (15:35)
--- NOTE | 2017-09-19 16:44 | P.CNPUL ---
History of Present Illness Consult date: 09/19/17 Requesting physician: Monica Dubois Reason for consult: dyspnea, cough, chest pain, asthma, other Chief complaint: Chest tightness, dyspnea, cough, chest congestion, UTI History of present illness: This is a 72-year-old white female patient of Dr. Rich Avila, presented to emergency department on 09/18/2017 at 846 with complaints of a presyncopal episode while getting out of bed. Patient felt lightheaded and dizzy, but did not lose consciousness. She did fall, did not sustain any injuries. She did have shaking chills a few days prior, and was treated with oral antibiotic for a urinary tract infection. She was also treated on an outpatient basis for her asthma exacerbation. Seen by Dr. Guadalupe in the pulmonary office, and was treated with a dose of IM Depo-Medrol and prednisone taper. Patient was already on the oral course of Macrodantin prescribed by Dr. Yuan for the UTI. She states her shortness of breath became progressively worse, she feels very congested in her chest, she is coughing but not able to produce any sputum. Denies fevers, did have the chills. Denied any urinary symptoms. Denied nausea vomiting or diarrhea. She had a negative stress test of week and a half ago for cardiac clearance for her anterior cervical discectomy and fusion for cervical stenosis with upper extremity radiculopathy, which was scheduled for this September 20. Chest x-ray showed no acute process. There were chronic interstitial changes noted on the chest x-ray. With EKG showed normal sinus rhythm. D-dimer was 0.93, for that reason CTA chest was obtained which did not show any evidence of pulmonary embolism, no focal consolidation, but there is moderate pulmonary fibrosis. Influenza screen was negative, WBCs 12.5 , electrolytes were within normal limits, BUN is 20, creatinine 0.83. Troponins were negative 3, proBNP was within normal limits at 76. Urinalysis showed large amount of leukocyte esterase, wbc clumps, rare bacteria and mucus. Urine culture was sent, and is pending at this time, patient was placed on IV Rocephin, IV Solu-Medrol, nebulized treatments DuoNeb and Pulmicort. Review of Systems All systems: negative Constitutional: Reports malaise, Denies chills, Denies fever Eyes: denies blurred vision, denies pain Ears, nose, mouth and throat: Denies headache, Denies sore throat Cardiovascular: Denies chest pain, Denies shortness of breath Respiratory: Reports congestion, Reports dyspnea, Denies cough Gastrointestinal: Denies abdominal pain, Denies diarrhea, Denies nausea, Denies vomiting Genitourinary: Denies dysuria, Denies hematuria Musculoskeletal: Denies myalgias Integumentary: Denies pruritus, Denies rash Neurological: Denies numbness, Denies weakness Psychiatric: Denies anxiety, Denies depression Endocrine: Denies fatigue, Denies weight change Past Medical History Past Medical History: Asthma, Cancer, Hyperlipidemia, Hypertension, Osteoarthritis (OA) Additional Past Medical History / Comment(s): Current UIT-has 2 more doses of macrobid to take yet, skin cancer with removals, arthritis multiple joints, back and cervical pain. History of Any Multi-Drug Resistant Organisms: None Reported Past Surgical History: Cholecystectomy, Heart Catheterization, Hysterectomy, Tonsillectomy, Tubal Ligation Additional Past Surgical History / Comment(s): 2 cardiac caths without intervention, bilateral cataract removal with lens implants, skin cancer removals, cyst removed from neck, colonoscopy. Past Anesthesia/Blood Transfusion Reactions: No Reported Reaction Additional Past Anesthesia/Blood Transfusion Reaction / Comment(s): Pt has never received blood. Smoking Status: Former smoker - Past Family History Brother(s) Family Medical History: Coronary Artery Disease (CAD) Additional Family Medical History / Comment(s): "bad heart" aneurysm Sister(s) Family Medical History: Cancer Additional Family Medical History / Comment(s): breast cancer Mother Family Medical History: Cancer, Coronary Artery Disease (CAD) Additional Family Medical History / Comment(s): Lymphoma, had a pacemaker. Mother at the age of 92yrs. Father Family Medical History: Coronary Artery Disease (CAD), Myocardial Infarction ([place] ) Additional Family Medical History / Comment(s): Father of a [place] at the age of 63 yrs. Medications and Allergies Home Medications Medication Instructions Recorded Confirmed Type Ipratropium-Albuterol Nebulize 3 ml INHALATION RT-QID PRN 05/18/15 09/18/17 History [Duoneb 0.5 mg-3 mg/3 ml Soln] Losartan Potassium 100 mg PO QAM 05/18/15 09/18/17 History Simvastatin [Zocor] 40 mg PO DAILY 05/18/15 09/18/17 History Albuterol Inhaler [Ventolin Hfa 2 puff INHALATION RT-QID PRN 04/10/17 09/18/17 History Inhaler] Aspirin EC [Ecotrin Low Dose] 81 mg PO DAILY 04/10/17 09/18/17 History Budesonide [Pulmicort] 0.5 mg INHALATION BID #60 neb 04/12/17 09/18/17 Rx Pantoprazole [Protonix] 40 mg PO AC-BRKFST #30 tab 04/12/17 09/18/17 Rx Nitrofurantoin Monohyd/M-Cryst 100 mg PO Q12HR 09/14/17 09/18/17 History [Macrobid] predniSONE 10 mg PO DAILY PRN 09/14/17 09/18/17 History Allergies Allergy/AdvReac Type Severity Reaction Status Date / Time No Known Allergies Allergy Verified 09/18/17 09:49 Physical Exam Vitals: Vital Signs Temp Pulse Pulse Resp BP BP BP 09/19/17 08:58 82 09/19/17 08:45 82 09/19/17 08:00 97.5 F L 82 18 135/64 09/19/17 07:56 78 16 09/19/17 05:44 78 113/58 09/19/17 04:00 98.3 F 63 16 108/57 09/19/17 00:09 16 09/18/17 23:55 99.6 F 81 17 108/64 09/18/17 23:50 94 16 09/18/17 20:00 103 H 16 09/18/17 19:24 96 09/18/17 19:08 92 09/18/17 18:07 95 16 09/18/17 18:02 98 F 95 16 124/61 09/18/17 17:25 99.2 F 96 16 123/54 09/18/17 15:42 96 16 123/54 09/18/17 14:29 98 16 118/60 09/18/17 13:08 82 16 123/58 BP BP Pulse Ox 09/19/17 08:58 09/19/17 08:45 09/19/17 08:00 93 L 09/19/17 07:56 09/19/17 05:44 118/68 114/59 09/19/17 04:00 94 L 09/19/17 00:09 96 09/18/17 23:55 92 L 09/18/17 23:50 09/18/17 20:00 09/18/17 19:24 09/18/17 19:08 09/18/17 18:07 09/18/17 18:02 93 L 09/18/17 17:25 96 09/18/17 15:42 96 09/18/17 14:29 95 09/18/17 13:08 98 Intake and Output 09/18/17 09/19/17 09/19/17 22:59 06:59 14:59 Intake Total 200 Balance 200 Intake: Oral 200 Other: Voiding Method Toilet Toilet Toilet # Voids 1 1 Weight 83.1 kg GENERAL EXAM: Alert, pleasant, 72-year-old white female, comfortable in no apparent distress. HEAD: Normocephalic/atraumatic. EYES: Normal reaction of pupils, equal size. Conjunctiva pink, sclera white. NOSE: Clear with pink turbinates. THROAT: No erythema or exudates. NECK: No masses, no JVD, no thyroid enlargement, no adenopathy. CHEST: No chest wall deformity. Symmetrical expansion. LUNGS: Diminished air entry bilaterally, with scattered rhonchi and rales at the bases. Patient has a congested nonproductive cough CVS: Regular rate and rhythm, normal S1 and S2, no gallops, no murmurs, no rubs ABDOMEN: Soft, nontender. No hepatosplenomegaly, normal bowel sounds, no guarding or rigidity. EXTREMITIES: No clubbing, no edema, no cyanosis, 2+ pulses and upper and lower extremities. MUSCULOSKELETAL: Muscle strength and tone normal. SPINE: No scoliosis or deformity SKIN: No rashes CENTRAL NERVOUS SYSTEM: Alert and oriented -3. No focal deficits, tone is normal in all 4 extremities. PSYCHIATRIC: Alert and oriented -3. Appropriate affect. Intact judgment and insight. Results - Laboratory Findings CBC and BMP: 09/19/17 06:58 09/19/17 06:58 PT/INR, D-dimer PT 9.6 sec (9.0-12.0) 09/18/17 09:05 INR 1.0 (<1.2) 09/18/17 09:05 D-Dimer 0.93 mg/L FEU (<0.60) H 09/18/17 20:06 Abnormal lab findings: Abnormal Labs 09/18/17 09/18/17 09/18/17 09:05 09:05 09:55 WBC 12.5 H Neutrophils # 9.9 H APTT 19.0 L D-Dimer Sodium BUN 20 H Glucose 101 H Urine Appearance Ur Leukocyte Esterase Urine WBC Urine WBC Clumps Urine Bacteria Urine Mucus 09/18/17 09/18/17 09/19/17 15:18 20:06 06:58 WBC Neutrophils # 8.3 H APTT D-Dimer 0.93 H Sodium BUN Glucose Urine Appearance Cloudy H Ur Leukocyte Esterase Large H Urine WBC 126 H Urine WBC Clumps Rare H Urine Bacteria Rare H Urine Mucus Rare H 09/19/17 06:58 WBC Neutrophils # APTT D-Dimer Sodium 135 L BUN 22 H Glucose 140 H Urine Appearance Ur Leukocyte Esterase Urine WBC Urine WBC Clumps Urine Bacteria Urine Mucus - Diagnostic Findings Chest x-ray: report reviewed CT scan - chest: report reviewed Additional studies: Twelve-lead EKG reviewed Assessment and Plan Plan: Assessment: #1. Acute exacerbation of moderate persistent asthma #2. Moderate pulmonary fibrosis, interstitial lung disease, incidental finding on chest CT angiogram, patient will need follow-up on an outpatient basis, possibly an outpatient thoracoscopic biopsy #3. Presyncopal episode with a fall. CT brain showed no acute intracranial abnormality. EKG showed normal sinus rhythm, serial troponins were negative 3 , patient had a negative stress test a week and a half ago for cardiac clearance for her cervical discectomy and fusion for cervical stenosis #4. Acute urinary tract infection with sepsis, treated on an outpatient basis with Macrobid, currently on Rocephin #5. Elevated d-dimer is 0.93, CTA chest was negative for any evidence of pulmonary embolism #6. 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 Hypertension, hyperlipidemia #8. Osteoarthritis #9. Cervical stenosis and upper extremity radiculopathy, patient is scheduled for anterior cervical discectomy and fusion on 09/20/2017 Plan: Continue Rocephin, continue nebulized treatments, DuoNeb and Pulmicort. Continue IV Solu-Medrol. Patient reports improvement in her dyspnea. The findings of the pulmonary fibrosis were discussed with the patient, patient will need an outpatient follow-up with Dr. Guadalupe. Patient was told that in the future cases of urinary tract infection, to avoid Macrobid, as it may cause pulmonary fibrosis. I performed a history & physical examination of the patient and discussed their management with my nurse practitioner, Carolina Post. I reviewed the nurse practitioner's note and agree with the documented findings and plan of care. Lung sounds are positive for diffuse rhonchi and wheezes. The findings and the impression was discussed with the patient. I attest to the documentation by the nurse practitioner. Time with Patient: Greater than 30
--- NOTE | 2017-09-19 18:53 | ECHOF ---
Referral Reason:chest pain MEASUREMENTS -------- HEIGHT: 154.9 cm WEIGHT: 83.9 kg BP: IVSd: 1.2 cm (0.6 - 1.1) LVIDd: 4.5 cm (3.9 - 5.3) LVPWd: 1.1 cm (0.6 - 1.1) IVSs: 1.3 cm LVIDs: 2.4 cm LVPWs: 1.3 cm Ao Diam: 2.9 cm (2.0 - 3.7) AV Cusp: 1.4 cm (1.5 - 2.6) LA Diam: 3.6 cm (2.7 - 3.8) MV E Berny: 0.81 m/s MV DecT: 179 ms MV A Berny: 0.91 m/s MV E/A Ratio: 0.89 FINDINGS -------- Sinus rhythm. This was a technically difficult study with suboptimal views. The left ventricular size is normal. Left ventricular wall thickness is normal. Overall left vent ricular systolic function is normal with, an EF between 55 - 60 %. The right ventricle is normal in size and function. The left atrium is normal in size. The right atrium is normal in size. The aortic valve is trileaflet, and appears structurally normal. No aortic stenosis or regurgitation. There is trace mitral regurgitation. Trace tricuspid regurgitation present. The right ventricular systolic pressure, as measured by Dopp ler, is {RVSP}. Pulmonic valve appears structurally normal. The aortic root size is normal. The pericardium is normal. CONCLUSIONS -------- 1. Sinus rhythm. 2. This was a technically difficult study with suboptimal views. 3. The left ventricular size is normal. 4. Left ventricular wall thickness is normal. 5. Overall left ventricular systolic function is normal with, an EF between 55 - 60 %. 6. The right ventricle is normal in size and function. 7. The left atrium is normal in size. 8. The right atrium is normal in size. 9. Lumason used 10. The aortic valve is trileaflet, and appears structurally normal. No aortic stenosis or regurgitat ion. 11. There is trace mitral regurgitation. 12. Trace tricuspid regurgitation present. 13. The right ventricular systolic pressure, as measured by Doppler, is {RVSP}. 14. Pulmonic valve appears structurally normal. 15. The aortic root size is normal. 16. The pericardium is normal. RUN LEAD: Ro Kearns RDCS
--- NOTE | 2017-09-19 18:55 | P.PN ---
Subjective Progress Note Date: 09/19/17 72 years old female patient of Dr. Austin Prado, Dr. Guadalupe with past medical history of asthma, skin cancer, hypertension, osteoarthritis cervical stenosis requiring elective cervical spine surgery by Dr. Prado in 2 days, presented last night with shortness of breath chest congestion nausea chills nonproductive cough that started few days ago. She was started on steroids, nebulized budesonide and albuterol, and antibiotic which she cannot recall patient was recently cleared by Dr. Holcomb for a stress test 1-1/2 weeks ago As per ER history, patient was coming in for chest pain, but rather the patient past complaint of chest congestion and lightheadedness, chills and cough shortness of breath. Patient was lightheaded, patient denies any syncope however her legs gave out, she does have chronic bilateral upper extremity numbness and chronic bilateral lower extremity weakness as a result of cervical stenosis with myelopathy, worse after [place] time. Hence the elective surgery coming up in 2 days and I was a bit disappointed on the ER triaging for this patient as the patient is coming in for the cardiac pathway,. The ER physician is not aware about the recent normal stress test 1-1/2 weeks nor is he aware about the scheduled cervical spine surgery in 2 days. Review of records shows that she was last admitted from our facility April 2017 for asthma exacerbation, no imaging studies performed at that time except for chest x-ray, no chest CT. patient is a former smoker, no previous intubations for her asthma, Emergency room, imaging studies include CT of the brain that failed to reveal any acute intracranial abnormality, chest x-ray shows no acute pulmonary process , patient is chronic interstitial lung disease, EKG shows normal sinus rhythm with right axis deviation, urinalysis shows 126 WBC with pyuria and leukocytosis of 12.5 troponins 2.01 2.012, consult made with Dr. Guadalupe with CT high resolution, treat urinary tract infection and acute bronchitis, and shortness of breath . D-dimer to be obtained, ceftriaxone IV for UTI, cultures to be obtained 09/19: Patient's doing much better, still with congestion, better with shortness of breath, no fever, no chills, urine cultures currently pending, no new urinary complaints today, no chest pain, patient was cleared by cardiology a week and a half ago for a stress test, patient's followed here for asthma exacerbation, CAT scan shows pulmonary fibrosis moderate, interstitial lung disease. Patient was counseled to wait at least 2 weeks for his altered elective spine surgery with Dr. Yuan to allow for pulmonary recovery Objective - Vital Signs Vital signs: Vital Signs Temp 97.9 F 09/19/17 16:00 Pulse 94 09/19/17 16:00 Resp 18 09/19/17 16:00 BP 110/45 09/19/17 16:00 Pulse Ox 92 L 09/19/17 16:00 Intake & Output 09/18/17 09/19/17 09/19/17 18:59 06:59 18:59 Intake Total 200 420 Balance 200 420 Weight 83.1 kg Intake: Oral 200 420 Other: Voiding Method Toilet Toilet Toilet # Voids 1 3 - Constitutional General appearance: Present: cooperative, no acute distress - EENT Eyes: Present: anicteric sclerae, EOMI, PERRLA, dentition normal, normal appearance ENT: Present: NA/AT, normal oropharynx - Neck Neck: Present: normal ROM - Respiratory Respiratory: bilateral: CTA, negative: diminished, dullness, rhonchi, wheezing - Cardiovascular Rhythm: regular Heart sounds: normal: S1, S2 - Gastrointestinal General gastrointestinal: Present: normal bowel sounds, soft - Integumentary Integumentary: Present: decreased turgor, normal - Neurologic Neurologic: Present: CNII-XII intact - Musculoskeletal Musculoskeletal: Present: gait normal, strength equal bilaterally - Psychiatric Psychiatric: Present: A&O x's 3, appropriate affect, intact judgment & insight - Labs CBC & Chem 7: 09/19/17 06:58 09/19/17 06:58 Labs: Abnormal Lab Results - Last 24 Hours (Table) 09/18/17 09/19/17 09/19/17 Range/Units 20:06 06:58 06:58 Neutrophils # 8.3 H (1.3-7.7) k/uL D-Dimer 0.93 H (<0.60) mg/L FEU Sodium 135 L (137-145) mmol/L BUN 22 H (7-17) mg/dL Glucose 140 H (74-99) mg/dL Microbiology - Last 24 Hours (Table) 09/18/17 15:18 Urine Culture - Preliminary Urine,Voided Assessment and Plan Plan: 1. Lightheadedness and chest heaviness, cough presenting with mild asthma exacerbation, mild hypoxemic respiratory failure patient would have IV hydration and evaluate for orthostasis, no syncope on presentation, patient would be started on Rocephin for the urinary tract infection that was seen, consult with Dr. Guadalupe for the shortness of breath,, Solu-Medrol short course, decreased to 40 mg every 8 hours and nebulized albuterol and Atrovent, O2 supplementation, Rocephin for trach bronchitis as well, patient already had undergone stress test 1-1/[address] Sloan for which she has been cleared, we would also monitor for benign positional vertigo and vestibular neuronitis, oral prednisone the morning 2. Acute urinary tract infection present prior to admission, MAXIMUM TEMPERATURE of 99.2 on admission, urine and blood cultures will be obtained, Rocephin initiated IV, patient was on nitrofurantoin prior to admission, we'll switch to oral antibiotic in morning pending cultures 3. Near syncope, most likely secondary to urinary tract infection and dehydration, IV hydration, and orthostasis with obtain, patient is not normotensive during this few hours from admission continue to monitor 4. Mild hypoxemia, most likely secondary to COPD exacerbation, X 5 Cervical spine stenosis with cervical myelopathy, requiring anterior cervical discectomy and fusion, based on recent urinary tract infection and asthma exacerbation, surgery would at least be postponed for at least [address] Prado is aware of her admission, 6 moderate pulmonary fibrosis, Interstitial lung disease as noted on x-ray, CT chest,, nebulized albuterol Atrovent, Pulmicort and Solu-Medrol. Continue Singulair and Pulmicort 0.5 twice a day 7. Mild intermittent asthma exacerbation, treatment as #1 8. Hypertension currently on losartan, orthostasis would be obtained secondary to lightheadedness, 7. Osteoarthritis 8. Hyperlipidemia on simvastatin next 9. Elevated d-dimer, no evidence of pulmonary emboli on major tributaries GI prophylaxis and DVT prophylaxis, Lovenox and Pepcid
[2017-09-19 19:49] LABS: Hemoglobin A1C 5.5 % (4.0-6.0)
[2017-09-20] MEDS: methylPREDNISolone SOD SUCCI 40 MG/ML 1 ML VIAL IV SCH ×2 (01:01→09:44)
[2017-09-20] MEDS: guaiFENesin SYRUP 100MG/5ML 200 MG/10 ML CUP PO PRN ×2 (02:22→11:34)
[2017-09-20] MEDS: IPRATROPIUM-ALBUTEROL 3 ML NEB INHALATION PRN (07:59)
[2017-09-20] MEDS: BUDESONIDE 0.5 MG/2 ML NEBU INHALATION SCH (07:59)
[2017-09-20 08:04] VITALS: RESP 18
[2017-09-20 08:08] LABS: Basophils # (A) 0.1 k/uL (0-0.2); Basophils % (A) 0 %; Eosinophils # (A) 0.1 k/uL (0-0.7); Eosinophils % (A) 0 %; HCT 37.3 % (34.0-46.0); Lymphocytes # (A) 1.8 k/uL (1.0-4.8); Lymphocytes % (A) 13 %; MCH 30.4 pg (25.0-35.0); MCHC 34.8 g/dL (31.0-37.0); MCV 87.3 fL (80.0-100.0); Mean Platelet Volume 7.2; Monocytes # (A) 0.5 k/uL (0-1.0); Monocytes % (A) 4 %; Neutrophils % (A) 81 %; Platelet Count 334 k/uL (150-450); RBC 4.27 m/uL (3.80-5.40); RDW 12.5 % (11.5-15.5); WBC 13.6 k/uL (3.8-10.6)
[2017-09-20 08:26] LABS: ALT 37 U/L (9-52); AST 18 U/L (14-36); Albumin 3.5 g/dL (3.5-5.0); Alkaline Phosphatase 82 U/L (38-126); Anion Gap 11 mmol/L; Blood Urea Nitrogen 20 mg/dL (7-17); Calcium 9.5 mg/dL (8.4-10.2); Carbon Dioxide 24 mmol/L (22-30); Chloride 104 mmol/L (98-107); Glucose 142 mg/dL (74-99); Potassium 4.6 mmol/L (3.5-5.1); Sodium 139 mmol/L (137-145); Total Bilirubin 0.4 mg/dL (0.2-1.3); Total Protein 6.2 g/dL (6.3-8.2)
--- NOTE | 2017-09-20 09:25 | P.PN ---
Subjective Progress Note Date: 09/20/17 Principal diagnosis: Acute exacerbation of moderate persistent asthma, moderate pulmonary fibrosis, acute UTI, presyncopal episode with a fall This is a 72-year-old white female patient of Dr. Rich Avila, presented to emergency department on 09/18/2017 at 846 with complaints of a presyncopal episode while getting out of bed. Patient felt lightheaded and dizzy, but did not lose consciousness. She did fall, did not sustain any injuries. She did have shaking chills a few days prior, and was treated with oral antibiotic for a urinary tract infection. She was also treated on an outpatient basis for her asthma exacerbation. Seen by Dr. Guadalupe in the pulmonary office, and was treated with a dose of IM Depo-Medrol and prednisone taper. Patient was already on the oral course of Macrodantin prescribed by Dr. Yuan for the UTI. She states her shortness of breath became progressively worse, she feels very congested in her chest, she is coughing but not able to produce any sputum. Denies fevers, did have the chills. Denied any urinary symptoms. Denied nausea vomiting or diarrhea. She had a negative stress test of week and a half ago for cardiac clearance for her anterior cervical discectomy and fusion for cervical stenosis with upper extremity radiculopathy, which was scheduled for this September 20. Chest x-ray showed no acute process. There were chronic interstitial changes noted on the chest x-ray. With EKG showed normal sinus rhythm. D-dimer was 0.93, for that reason CTA chest was obtained which did not show any evidence of pulmonary embolism, no focal consolidation, but there is moderate pulmonary fibrosis. Influenza screen was negative, WBCs 12.5 , electrolytes were within normal limits, BUN is 20, creatinine 0.83. Troponins were negative 3, proBNP was within normal limits at 76. Urinalysis showed large amount of leukocyte esterase, wbc clumps, rare bacteria and mucus. Urine culture was sent, and is pending at this time, patient was placed on IV Rocephin, IV Solu-Medrol, nebulized treatments DuoNeb and Pulmicort. On 09/20/2017 patient seen in follow-up. She states her chest tightness and wheezing are improved since yesterday. Still not able to bring up any sputum, but feels less congested today. Vital signs are stable, she is afebrile, she is on room air with O2 sat 94%. On sounds are positive for coarse crackles bilateral bases, right greater than the left. A few faint wheezes on forced exhale maneuver, but overall much improved from yesterday's exam. She has been ambulating in the hallway, tolerating activity well. Continue current medical treatment, continue IV Solu-Medrol, nebulized treatments. Urine culture showed no growth, patient continues on Rocephin for the UTI. Objective - Vital Signs Vital signs: Vital Signs Temp 97.5 F L 09/20/17 08:00 Pulse 68 09/20/17 08:09 Resp 18 09/20/17 08:00 BP 127/71 09/20/17 08:00 Pulse Ox 94 L 09/20/17 08:00 Intake & Output 09/19/17 09/20/17 09/20/17 18:59 06:59 18:59 Intake Total 420 320 420 Balance 420 320 420 Intake: Oral 420 320 420 Other: Voiding Method Toilet Toilet # Voids 3 3 - Exam GENERAL EXAM: Alert, pleasant, 72-year-old white female, comfortable in no apparent distress. HEAD: Normocephalic/atraumatic. EYES: Normal reaction of pupils, equal size. Conjunctiva pink, sclera white. NOSE: Clear with pink turbinates. THROAT: No erythema or exudates. NECK: No masses, no JVD, no thyroid enlargement, no adenopathy. CHEST: No chest wall deformity. Symmetrical expansion. LUNGS: Diminished air entry bilaterally, with coarse rales and bilateral bases, and faint few wheezes on forced expiration. Patient has a congested nonproductive cough CVS: Regular rate and rhythm, normal S1 and S2, no gallops, no murmurs, no rubs ABDOMEN: Soft, nontender. No hepatosplenomegaly, normal bowel sounds, no guarding or rigidity. EXTREMITIES: No clubbing, no edema, no cyanosis, 2+ pulses and upper and lower extremities. MUSCULOSKELETAL: Muscle strength and tone normal. SPINE: No scoliosis or deformity SKIN: No rashes CENTRAL NERVOUS SYSTEM: Alert and oriented -3. No focal deficits, tone is normal in all 4 extremities. PSYCHIATRIC: Alert and oriented -3. Appropriate affect. Intact judgment and insight. - Labs CBC & Chem 7: 09/20/17 07:47 09/20/17 07:47 Labs: Abnormal Lab Results - Last 24 Hours (Table) 09/20/17 09/20/17 Range/Units 07:47 07:47 WBC 13.6 H (3.8-10.6) k/uL Neutrophils # 11.0 H (1.3-7.7) k/uL BUN 20 H (7-17) mg/dL Glucose 142 H (74-99) mg/dL Total Protein 6.2 L (6.3-8.2) g/dL Microbiology - Last 24 Hours (Table) 09/18/17 15:18 Urine Culture - Final Urine,Voided Assessment and Plan Plan: Assessment: #1. Acute exacerbation of moderate persistent asthma #2. Moderate pulmonary fibrosis, interstitial lung disease, incidental finding on chest CT angiogram, patient will need follow-up on an outpatient basis, possibly an outpatient thoracoscopic biopsy #3. Presyncopal episode with a fall. CT brain showed no acute intracranial abnormality. EKG showed normal sinus rhythm, serial troponins were negative 3 , patient had a negative stress test a week and a half ago for cardiac clearance for her cervical discectomy and fusion for cervical stenosis #4. Acute urinary tract infection with sepsis, treated on an outpatient basis with Macrobid, currently on Rocephin #5. Elevated d-dimer is 0.93, CTA chest was negative for any evidence of pulmonary embolism #6. History of nicotine dependence, currently in remission, quit 30 years ago, carries [id number] smoking history #7. Hypertension, hyperlipidemia #8. Osteoarthritis #9. Cervical stenosis and upper extremity radiculopathy, patient is scheduled for anterior cervical discectomy and fusion on 09/20/2017 Plan: Continue current plan of care, continue nebulized treatments, IV Rocephin, IV steroids. Patient is improving, less chest tightness, dyspnea and wheezing. Increase activity as tolerated. I performed a history & physical examination of the patient and discussed their management with my nurse practitioner, Carolina Post. I reviewed the nurse practitioner's note and agree with the documented findings and plan of care. Lung sounds are positive for diffuse coarse bibasilar rales and faint wheezes. The findings and the impression was discussed with the patient. I attest to the documentation by the nurse practitioner. Time with Patient: Less than 30
[2017-09-20] MEDS: FAMOTIDINE 20 MG TAB PO SCH (09:44)
[2017-09-20] MEDS: ATORVASTATIN 20 MG TAB PO SCH (09:44)
[2017-09-20] MEDS: LOSARTAN 50 MG TAB PO SCH (09:44)
[2017-09-20] MEDS: ASPIRIN 81 MG PO SCH (09:44)
[2017-09-20] MEDS: cefTRIAXone IN SWFI 1,000 MG/10 ML SYRINGE IVP SCH (09:45)
[2017-09-20] MEDS ORDERED: IPRATROPIUM-ALBUTEROL 3 ML NEB INHALATION SCH (12:00)
[2017-09-20 12:06] VITALS: BP 115/57; TEMP 97.6
[2017-09-20 12:12] VITALS: PULSE 65
--- NOTE | 2017-09-29 10:01 | P.DS ---
Providers Date of admission: 09/18/17 12:11 Expected date of discharge: 09/20/17 Attending physician: Monica Dubois Consults: 09/18/17 12:10 Consult Physician Routine Consulting Provider: Regla Krishnamurthy Consult Reason/Comments: chest pain Do you want consulting provider notified?: Yes 09/18/17 18:51 Consult Physician Routine Consulting Provider: Aiden Guadalupe Consult Reason/Comments: asthma exacerbtion Do you want consulting provider notified?: Yes Primary care physician: [facility] Course: 72 years old female patient of Dr. Austin Prado, Dr. Guadalupe with past medical history of asthma, skin cancer, hypertension, osteoarthritis cervical stenosis requiring elective cervical spine surgery by Dr. Prado in 2 days, presented last night with shortness of breath chest congestion nausea chills nonproductive cough that started few days ago. She was started on steroids, nebulized budesonide and albuterol, and antibiotic which she cannot recall patient was recently cleared by Dr. Holcomb for a stress test 1-1/2 weeks ago As per ER history, patient was coming in for chest pain, but rather the patient past complaint of chest congestion and lightheadedness, chills and cough shortness of breath. Patient was lightheaded, patient denies any syncope however her legs gave out, she does have chronic bilateral upper extremity numbness and chronic bilateral lower extremity weakness as a result of cervical stenosis with myelopathy, worse after [place] time. Hence the elective surgery coming up in 2 days and I was a bit disappointed on the ER triaging for this patient as the patient is coming in for the cardiac pathway,. The ER physician is not aware about the recent normal stress test 1-1/2 weeks nor is he aware about the scheduled cervical spine surgery in 2 days. Review of records shows that she was last admitted from our facility April 2017 for asthma exacerbation, no imaging studies performed at that time except for chest x-ray, no chest CT. patient is a former smoker, no previous intubations for her asthma, Emergency room, imaging studies include CT of the brain that failed to reveal any acute intracranial abnormality, chest x-ray shows no acute pulmonary process , patient is chronic interstitial lung disease, EKG shows normal sinus rhythm with right axis deviation, urinalysis shows 126 WBC with pyuria and leukocytosis of 12.5 troponins 2.01 2.012, consult made with Dr. Guadalupe with CT high resolution, treat urinary tract infection and acute bronchitis, and shortness of breath . D-dimer to be obtained, ceftriaxone IV for UTI, cultures to be obtained 09/19: Patient's doing much better, still with congestion, better with shortness of breath, no fever, no chills, urine cultures currently pending, no new urinary complaints today, no chest pain, patient was cleared by cardiology a week and a half ago for a stress test, patient's followed here for asthma exacerbation, CAT scan shows pulmonary fibrosis moderate, interstitial lung disease. Patient was counseled to wait at least 2 weeks for his altered elective spine surgery with Dr. Guadalupe to allow for pulmonary recovery 09/20: Room air pulse ox is 93%. Patient states that she is feeling better today. She denies tightness and wheezing. Improved from yesterday. She denies any sputum production but is noted to frequent throat clearing. Nystatin has been added. Urine culture is showing genital turner. Patient was seen by Dr. Luciano and cleared for discharge. Patient will be discharged home today in stable condition. Discharge Diagnoses: 1. Acute exacerbation of moderate persistent asthma 2. Acute urinary tract infection present prior to admission 3. Near syncope, most likely secondary to urinary tract infection and dehydration, 4. Mild hypoxemia, most likely secondary to asthma exacerbation 5 Cervical spine stenosis with cervical myelopathy, requiring anterior cervical discectomy postponed for at least [address] Yuan 6 moderate pulmonary fibrosis, Interstitial lung disease 7. Moderate persistent asthma exacerbation 8. Hypertension 7. Osteoarthritis, generalized 8. Hyperlipidemia Discharge plan: home Impression and plan of care have been directed as dictated by the signing physician. Monica Fragoso nurse practitioner acting as scribe for signing physician. Patient Condition at Discharge: Good Plan - Discharge Summary Discharge Rx Participant: No New Discharge Prescriptions: New Doxycycline Hyclate 100 mg PO BID #14 tab guaiFENesin SYRUP 100MG/5ML [Robitussin] 200 mg PO TID PRN #0 cup PRN Reason: Cough predniSONE 0 mg PO DIRECTED #45 tab Nystatin 100,000 Unit/ml Susp [Mycostatin Oral Susp] 5 ml PO QID #100 ml Continue Simvastatin [Zocor] 40 mg PO DAILY Losartan Potassium 100 mg PO QAM Ipratropium-Albuterol Nebulize [Duoneb 0.5 mg-3 mg/3 ml Soln] 3 ml INHALATION RT-QID PRN PRN Reason: Shortness Of Breath Aspirin EC [Ecotrin Low Dose] 81 mg PO DAILY Albuterol Inhaler [Ventolin Hfa Inhaler] 2 puff INHALATION RT-QID PRN PRN Reason: Shortness Of Breath Pantoprazole [Protonix] 40 mg PO AC-BRKFST #30 tab Budesonide [Pulmicort] 0.5 mg INHALATION BID #60 neb Nitrofurantoin Monohyd/M-Cryst [Macrobid] 100 mg PO Q12HR Discontinued predniSONE 10 mg PO DAILY PRN PRN Reason: See Comments Discharge Medication List Ipratropium-Albuterol Nebulize [Duoneb 0.5 mg-3 mg/3 ml Soln] 3 ml INHALATION RT -QID PRN 05/18/15 [History] Losartan Potassium 100 mg PO QAM 05/18/15 [History] Simvastatin [Zocor] 40 mg PO DAILY 05/18/15 [History] Albuterol Inhaler [Ventolin Hfa Inhaler] 2 puff INHALATION RT-QID PRN 04/10/17 [ History] Aspirin EC [Ecotrin Low Dose] 81 mg PO DAILY 04/10/17 [History] Budesonide [Pulmicort] 0.5 mg INHALATION BID #60 neb 04/12/17 [Rx] Pantoprazole [Protonix] 40 mg PO AC-BRKFST #30 tab 04/12/17 [Rx] Nitrofurantoin Monohyd/M-Cryst [Macrobid] 100 mg PO Q12HR 09/14/17 [History] Doxycycline Hyclate 100 mg PO BID #14 tab 09/20/17 [Rx] Nystatin 100,000 Unit/ml Susp [Mycostatin Oral Susp] 5 ml PO QID #100 ml [Rx] guaiFENesin SYRUP 100MG/5ML [Robitussin] 200 mg PO TID PRN #0 cup 09/20/17 [Rx] predniSONE 0 mg PO DIRECTED #45 tab 09/20/17 [Rx] Follow up Appointment(s)/Referral(s): Adan Mccormick, PAC [PHYSICIAN GRINDING MACHINE OPERATOR PORTABLE] - 3 Days (Patient may follow-up with Adan Mccormick PA-C or Dr. Jamshid Yuan at [facility] in 2-3 days,following discharge; Patient may call to schedule) Aiden Guadalupe DO [Doctor of Osteopathic Medicine] - 1 Week (Appointment made for Monday @ 3:30pm.) Rich Avila MD [Primary Care Provider] - 1 Week Patient Instructions/Handouts: Chest Pain (DC) Discharge Disposition: HOME SELF-CARE
== END 2017-09-20 13:50 | disposition home or self-care (01) ==
LOC: EC 08:46 → 3OBS 12:11
PROVIDERS: ADMIT Family Medicine; ATTEND Family Medicine
DX: J45.41 Moderate persistent asthma with (acute) exacerbation (principal); N39.0 Urinary tract infection, site not specified; E86.0 Dehydration; J84.10 Pulmonary fibrosis, unspecified; J20.9 Acute bronchitis, unspecified; R55 Syncope and collapse; W18.30XA Fall on same level, unspecified, initial encounter; M48.02 Spinal stenosis, cervical region; M50.10 Cervical disc disorder with radiculopathy, unspecified cervical region; M50.00 Cervical disc disorder with myelopathy, unspecified cervical region; I10 Essential (primary) hypertension; E78.5 Hyperlipidemia, unspecified; M15.9 Polyosteoarthritis, unspecified; Z79.82 Long term (current) use of aspirin; J96.91 Respiratory failure, unspecified with hypoxia; E66.9 Obesity, unspecified; Z68.35 Body mass index [BMI] 35.0-35.9, adult; R79.89 Other specified abnormal findings of blood chemistry; Z79.51 Long term (current) use of inhaled steroids; Z79.899 Other long term (current) drug therapy; Z85.828 Personal history of other malignant neoplasm of skin; Z87.891 Personal history of nicotine dependence; Z82.49 Family history of ischemic heart disease and other diseases of the circulatory system; Z80.3 Family history of malignant neoplasm of breast; Z80.7 Family history of other malignant neoplasms of lymphoid, hematopoietic and related tissues
CPT/HCPCS: 99285 ×2; 96374 ×2; 96372; 96375; 96376 ×3; 36415; 94640 ×5; 93005; 93306; 85379; 83880; 80053 ×3; 83735; 84484; 85025 ×3; 85610; 85730; 81001; 87086; 87502; 83036; 71046; 70450; 71250; 71275; G0378 ×3; J2270; J2920 ×2; J2930 ×2; Q9967; J2405; J0696 ×3; J1650

== ENCOUNTER → 2017-10-11 | Outpatient (CLI) | payer MEDICARE, BC ==
[2017-10-11 10:32] LABS: Appearance,Urine Clear (Clear); Bilirubin,Urine Negative (Negative); Blood,Urine Negative (Negative); Color,Urine Yellow; Glucose,Urine (UA) Negative (Negative); Ketones,Urine Negative (Negative); Leukocyte Esterase,Urine Moderate (Negative); Mucus,Urine Rare /hpf; Nitrite,Urine Negative (Negative); PH, Urine 6.5 (5.0-8.0); Protein,Urine Negative (Negative); RBC,Urine 2 /hpf (0-5); Specific Gravity,Urine 1.013 (1.001-1.035); Squamous Epithelial Cell,Urine 2 /hpf (0-4); Urobilinogen,Urine <2.0 mg/dL (<2.0); WBC,Urine 16 /hpf (0-5)
== END ==
LOC: LABPAT 09:33
PROVIDERS: ATTEND Physician Assistant
DX: Z01.812 Encounter for preprocedural laboratory examination (principal)
CPT/HCPCS: 81001

== ENCOUNTER → 2017-10-16 | Outpatient (CLI) | payer MEDICARE, BC ==
[2017-10-16 08:52] LABS: Appearance,Urine Clear (Clear); Bilirubin,Urine Negative (Negative); Blood,Urine Negative (Negative); Color,Urine Light Yellow; Glucose,Urine (UA) Negative (Negative); Ketones,Urine Negative (Negative); Leukocyte Esterase,Urine Moderate (Negative); Nitrite,Urine Negative (Negative); PH, Urine 6.5 (5.0-8.0); Protein,Urine Negative (Negative); Specific Gravity,Urine 1.013 (1.001-1.035); Squamous Epithelial Cell,Urine 2 /hpf (0-4); Urobilinogen,Urine <2.0 mg/dL (<2.0); WBC,Urine 4 /hpf (0-5)
== END | disposition home or self-care (01) ==
LOC: LABPAT 08:00
PROVIDERS: ATTEND Orthopaedic Surgery Orthopaedic Surgery of the Spine
DX: Z01.812 Encounter for preprocedural laboratory examination (principal)
CPT/HCPCS: 81001

== ENCOUNTER 2017-10-18 05:32 | Inpatient (IN) | payer MEDICARE, BC ==
[2017-10-06 12:58] VITALS: BMI 35.3
[~2017-10-18 05:32] MED LIST: BACITRACIN 50,000 UNIT, POLYMYXIN B 500,000 UNIT in SODIUM CHLORIDE 0.9% IRRIGATIO 1,00... IRRIGATION ONE; DEXAMETHASONE SOD PHOSPHATE 10 MG/ML 1 ML VIAL IV ONE; HYDROmorphone 0.5 MG/0.5 ML SYRINGE IVP PRN; MORPHINE SULFATE 4 MG/ML SYRINGE IV PRN; ONDANSETRON 4 MG/2 ML VIAL IVP ONE; ceFAZolin IN SWFI 2 GM/20 ML SYRINGE IVP ONE
[2017-10-18] MEDS: LACTATED RINGERS 1,000 ML IV SCH ×2 (06:48→22:21)
[2017-10-18 06:49] LABS: Glucose,Whole Blood 94 mg/dL (75-99)
[2017-10-18] MEDS ORDERED: LIDOCAINE 1% 20 ML VIAL (10MG/ML) FOR IV START INTRADERMA ONE (06:49)
[2017-10-18] MEDS ORDERED: DEXAMETHASONE SOD PHOS (MDV) 100 MG/10 ML VIAL ONE (07:32)
[2017-10-18] MEDS ORDERED: MIDAZOLAM 2 MG/2 ML VIAL ONE (07:32)
[2017-10-18] MEDS ORDERED: PROPOFOL 10 MG/ML 20 ML VIAL IV ONE (07:32)
[2017-10-18] MEDS ORDERED: LIDOCAINE 1% INJ 10MG/ML (20 ML MDV) ONE (07:32)
[2017-10-18] MEDS ORDERED: fentaNYL (PF) 50 MCG/ML 2 ML AMP ONE (07:32)
[2017-10-18] MEDS ORDERED: PHENYLEPHRINE-0.9% NACL SYG 1 MG/10 ML SYRINGE ONE (07:32)
[2017-10-18] MEDS ORDERED: ROCURONIUM BROMIDE 10 MG/ML 10 ML VIAL IV ONE (07:32)
[2017-10-18] MEDS ORDERED: SUCCINYLCHOLINE CHLORIDE 100 MG/5 ML SYR IV ONE (07:32)
[2017-10-18] MEDS ORDERED: BUPIVACAINE (PF) 0.25% 30 ML VIAL SQ ONE ×2 (08:09)
[2017-10-18] MEDS ORDERED: GELATIN SPONGE,ABSORB (LARGE) 1 EACH SPONGE MISCELLANE ONE (08:42)
[2017-10-18] MEDS ORDERED: THROMBIN (BOVINE) 5,000 UNIT VIAL TOPICAL ONE (08:43)
--- NOTE | 2017-10-18 08:55 | XR ---
Limited cervical spine history: Needle placement, degenerative disc disease Single lateral view of the cervical spine submitted. Comparison to plain film 07/08/2015 Endotracheal tube is noted. There are overlying leads. There is a needle within the C3-4 disc space. Entire cervical spine is not visualized. There is multilevel spondylosis. IMPRESSION: Orthopedic localization
[2017-10-18] MEDS ORDERED: LACTATED RINGERS 1,000 ML IV ONE (09:44)
[2017-10-18] MEDS ORDERED: DIAZEPAM 5 MG TAB PO PRN (11:23)
[2017-10-18] MEDS ORDERED: MORPHINE SULFATE 4MG/4ML SYRG IVP PRN (11:23)
[2017-10-18] MEDS ORDERED: MAGNESIUM HYDROXIDE 2,400 MG/10 ML CUP PO PRN (11:23)
[2017-10-18] MEDS ORDERED: BENZOCAINE/MENTHOL LOZENG 1 EACH LOZENGE MUCOUS MEM PRN (11:23)
[2017-10-18] MEDS ORDERED: ALBUTEROL INHALER 60 PUFF/8 GM INHALER INHALATION PRN (11:26)
--- NOTE | 2017-10-18 11:33 | P.OP ---
Date of Procedure: 10/18/17 Preoperative Diagnosis: Cervical spinal stenosis C3 4 C4 5 C5 6 C6 7 Large anterior cervical osteophytes C3 4 C4 5 C5 6 C6 7 Severe disc degeneration C3 4 C4 5 C5 6 C6 7 Neck pain with upper extremity radiculopathy Cervical myelopathy Postoperative Diagnosis: Same Anesthesia: GETA Pathology: none sent Condition: stable Disposition: PACU Description of Procedure: BRIEF OPERATIVE NOTE Preoperative Diagnosis: Cervical stenosis C3 4 C4 5 C5 6 C6 7, degenerative disc disease, large anterior cervical osteophytes, neck pain with upper extremity pain, cervical myelopathy Postoperative Diagnosis: Same Procedure: Anterior cervical decompression with discectomy and fusion C3 4 C4 5 C5 6 C6 7 Removal of large anterior cervical osteophytes C3 4 C4 5 C5 6 C6 7 C3 4 C4 5 C5 6 C6 7 Placement of interbody graft Application of anterior cervical plate [phone] Surgeon: Dr. Yuan Clinical Courier: Adan TORRES who is present throughout the entire the case persistence during positioning, dissection, exposure, visualization, and all crucial elements of the case as well as closure. Anesthesia: General anesthesia Estimated blood loss: Approximately 100 mL Complications: None apparent Components implanted: K2M [place] anterior cervical plate system with use of a 72 mm plate and 3.5 mm screws and Vikos interbody allograft bone graft with 1 mL of DBX bone putty supplement the bone graft Disposition: To recovery room in good stable condition. OPERATIVE INDICATIONS The patient has had long-standing issues in their neck and upper extremities. She had massive anterior cervical osteophytes and spondylosis at her cervical spine with severe disc degeneration and disc protrusion causing severe central and bilateral foraminal stenosis at multiple levels. She is having progressive pain despite aggressive conservative treatment and was having worsening of her symptoms at her neck and upper extremities. She was demonstrated some early evidence of cervical myelopathy. The patient has been through conservative treatment. We discussed various treatment options including surgery, and the patient wishes to proceed with surgery We discussed the risk, patient's alternatives and benefits of surgery including but not limited to, risk of bleeding risk of infection, risk of need for further surgery, risk of decreased , loss of motion, muscle function, malunion nonunion, hardware failure, nerve damage, paralysis, heart attack, and . OPERATIVE SUMMARY After discussing all the risks, patient alternatives and benefits at length, the patient elected to proceed with surgical intervention, signed informed consent, and presented for their procedure. The patient was seen and examined in the preoperative holding area and the surgical site was marked. The patient was given antibiotics and brought to the operating room. The patient was positioned on the operating room table in a supine position being careful to pad any bony prominences and pressure points. The patient was sedated and intubated by anesthesia in standard fashion. Once the airway and C- spine were stabilized the patient's arms were padded and tucked at her side, with her shoulders gently taped. The head was placed in a donut pad with the neck in good neutral alignment and position. We were careful to maintain the patient's cervical spine and good neutral alignment and position throughout. The patient was prepped and draped in a normal standard fashion. An appropriate timeout and keystone protocol performed. We were able to proceed with the surgery. The local wound area was infiltrated with local anesthetic. An incision was made longitudinally approximately 4 cm in length over the appropriate levels. The patient is a very short and ko neck and this increased the level of difficulty of the case as did the large osteophytes which had to be removed at each level. Of C3 4 Dissection was taken down subcutaneously to the level of the platysma which was split in line with its fibers. Dissection was taken with a carotid approach, with the trachea and esophagus medial and the carotid sheath laterally. We dissected down to the anterior surface of the vertebral bodies. Intraoperative x-ray was taken which showed a marker at the appropriate level. With the appropriate level positively confirmed, we were able to proceed with discectomy at the appropriate levels first at C3 4 than at C4 5 than at C5 6 and then at C6 7. Large anterior cervical osteophytes had remained be removed at each level with rongeurs and a high-speed bur. All of the operative levels were exposed appropriately. The patient had all their twitches back, and there was no evidence of recurrent laryngeal issue. The wound was copiously irrigated and suctioned dry as had been done periodically throughout the case. At the appropriate level/levels, starting at C3 4 than moving caudal to C4 5 C5 6 and C6 7, I established an annulotomy with an 11 blade scalpel. A discectomy was performed with a combination of pituitary rongeurs, curettes, a high-speed bur, and [place] rongeurs. The posterior longitudinal ligament was taken down as were any posterior osteophytes. Each level had significant central and bilateral foraminal stenosis with disc protrusion which was remedied with the decompression. This gave good central and bilateral foraminal decompression. There is no evidence of any dural tear or leak. The endplates were prepared with a high-speed bur. With the endplates in good parallel position, I was able to size for the appropriate size interbody graft. The wound was irrigated and suctioned dry the graft was prepared and malleted into position. It had good alignment and position with the anterior surface flush with the anterior surface of the vertebral bodies. This was done similarly the appropriate levels. With the grafts intact, I was able to measure and contour and appropriate sized plate from C3 to C7 . The plate was positioned at the midline over the appropriate levels. Screw holes were established with a hand drill and drill guide. Screws were placed in good alignment and position with excellent bony purchase. They were seated under the locking device. The construct was checked and found to be stable. Intraoperative x-ray was taken which showed good alignment and position of the implants at the appropriate levelsfrom C3 to C7. There was no evidence of any dural tear or leak. Good hemostasis was maintained. The wound was copiously irrigated and suctioned dry as had been done periodically throughout the case. The platysma was closed with absorbable suture. The subcutaneous tissue was closed. The subcuticular tissue was closed with absorbable suture. The wound was cleaned and dried and dressed appropriately. A soft cervical collar was placed appropriately. The patient was woken up by anesthesia, extubated, transferred back gently to their hospital bed and brought to the recovery room in good stable condition. The patient will be admitted to the hospital for appropriate postoperative care , medical management and monitoring. We will continue to follow them closely about the postoperative course.
[2017-10-18] MEDS ORDERED: fentaNYL (PF) 50 MCG/ML 2 ML AMP IVP ONE (12:40)
[2017-10-18] MEDS ORDERED: diphenhydrAMINE 50 MG/ML 1 ML VIAL IVP ONE (12:59)
--- NOTE | 2017-10-18 13:24 | XR ---
Limited cervical spine HISTORY: Anterior cervical fusion and discectomy Single lateral view of the cervical spine. The inferior cervical spine is not well seen. Anterior cervical fusion and discectomy changes are pre sent at C3-4, C4-5, C5-6 and likely C6-7. Endotracheal tube is in place. There is anatomic alignment. Overlying probes are noted. Intervertebral spacing blocks are noted. IMPRESSION: Orthopedic follow-up.
[2017-10-18] MEDS: SODIUM CHLORIDE 0.9% 1,000 ML IV SCH (15:32)
[2017-10-18] MEDS: HYDROcodone/APAP 5-325MG 1 EACH TAB PO PRN ×3 (15:57→23:59)
[2017-10-18] MEDS: ceFAZolin IN SWFI 2 GM/20 ML SYRINGE IVP SCH (15:58)
[2017-10-18] MEDS: BUDESONIDE 0.5 MG/2 ML NEBU INHALATION SCH (19:41)
[2017-10-18] MEDS: IPRATROPIUM-ALBUTEROL 3 ML NEB INHALATION PRN (19:41)
[2017-10-18] MEDS ORDERED: AMOXICILLIN 875 MG TAB PO SCH (21:00)
--- NOTE | 2017-10-18 22:18 | P.PN ---
Progress Note - Text Progress Note Date: 10/18/17 Pt is seen and exmined. swallowing liquids well. Denies drooling. Denies shortness of breath. She says she feels like she has a lump in her throat and is difficult for her to cough things up. She is afebrile stable vital signs Her neck is soft and supple. Her wound site does not have any significant fluid collection. There is no significant erythema there is no drainage. The wound is clear the dressing is dry. Her upper extremities have good motor and function unchanged from prior to surgery. She has been up out of bed and ambulatory and able to use the bathroom for urination. Assessment plan Status post anterior cervical discectomy and fusion C3 through 4 C4 5 C5 6 and C6 7 for her cervical stenosis with degenerative disc disease neck pain upper extremity and extremity radiculopathy There is some concern with her throat she felt somewhat short of breath earlier but this was likely due to some anxiety. Her incision site seems to be quite soft and healing appropriately. There is no significant tension or fluid collection and I do not think that her wound site is causing any tracheal compression. She has been up out of bed and she is able to swallow liquids. I think her progress is appropriate thus far given her significant 4 level anterior cervical surgery. She will continue to mobilize and advance her diet. Hopefully she'll be able to go home in the morning. I discussed this with her and answered her questions she is agreeable.
[2017-10-18] MEDS: SULFAMETHOX-TMP 800-160MG 1 EACH TAB PO SCH (22:42)
[2017-10-19] MEDS: ceFAZolin IN SWFI 2 GM/20 ML SYRINGE IVP SCH (01:12)
[2017-10-19] MEDS: SODIUM CHLORIDE 0.9% 1,000 ML IV SCH ×2 (01:13→08:24)
[2017-10-19] MEDS: HYDROcodone/APAP 5-325MG 1 EACH TAB PO PRN ×2 (04:37→08:23)
[2017-10-19] MEDS: IPRATROPIUM-ALBUTEROL 3 ML NEB INHALATION PRN (07:42)
[2017-10-19] MEDS: BUDESONIDE 0.5 MG/2 ML NEBU INHALATION SCH (07:42)
[2017-10-19 08:19] VITALS: BP 141/65; PULSE 96; RESP 17; TEMP 98.2
[2017-10-19] MEDS: SULFAMETHOX-TMP 800-160MG 1 EACH TAB PO SCH (08:22)
[2017-10-19] MEDS: SENNOSIDES-DOCUSATE SODIUM 1 EACH TAB PO SCH ×2 (08:24→08:27)
[2017-10-19] MEDS ORDERED: LOSARTAN 50 MG TAB PO SCH (09:00)
[2017-10-19] MEDS ORDERED: ATORVASTATIN 20 MG TAB PO SCH (09:00)
[2017-10-19] MEDS ORDERED: ASPIRIN 81 MG PO SCH (09:00)
--- NOTE | 2017-10-19 10:17 | P.DS ---
Providers Date of admission: 10/18/17 05:32 Attending physician: Agustin Yuan Consults: 10/18/17 11:33 Consult Physician Routine Consulting Provider: Rich Avila Consult Reason/Comments: medical management Do you want consulting provider notified?: Yes 10/18/17 15:07 Consult Physician Routine Consulting Provider: Glo Grover Consult Reason/Comments: medical management Do you want consulting provider notified?: Yes Primary care physician: Rich Avila [facility] Course: The patient presented on the day of admission as per her operative note. She feels that her arms are doing better today she feels that she has made progress in terms of her operative extremity is already with her surgery. She feels much better this morning and last night. Her neck does not feel as tense or sore. She feels her breathing is doing well. She is amatory and tolerating her soft diet. Physical Exam The incision site is clean dry and intact. There is no erythema no drainage. There is no purulence no evidence of infection. Her neck is soft and supple. There is no fluid collection. There is no tension at her neck. The dressing is clean and dry Abdomen soft and nontender. Chest has good excursion with deep inspiration and expiration. The patient has active and passive range of motion intact at the upper and lower extremities. There is no acute change in neurologic status. She has good motion in her hands and fingers Hospital Course Postoperative day #1 status post anterior cervical decompression with discectomy and fusion at C34 C4 5 C5 6 and C6 7 for her severe cervical stenosis with disc degeneration and upper extremity radiculopathy and early myelopathy. The patient has been making good progress postoperatively. They have completed the prophylactic antibiotics without any signs or symptoms of infection. The patient has been able to advance their diet, and is tolerating diet adequately. The pain was initially controlled with IV medications and is now controlled appropriately with oral medications. The patient has been able to increase their mobilization. The patient has progressed appropriately. I think they are in good stable condition for discharge today. They will be sent home with appropriate prescriptions. I answered their questions to the best of my ability in a language that they can understand and they are agreeable with the plan. They will follow up as directed in approximately 2 weeks' time or sooner if she is having problems. Patient Condition at Discharge: Good Plan - Discharge Summary Discharge Rx Participant: No New Discharge Prescriptions: New HYDROcodone/APAP 5-325MG [[place] 5] 1 each PO Q6HR PRN #90 tab PRN Reason: Severe Pain No Action Simvastatin [Zocor] 40 mg PO DAILY Losartan Potassium 100 mg PO QAM Ipratropium-Albuterol Nebulize [Duoneb 0.5 mg-3 mg/3 ml Soln] 3 ml INHALATION RT-QID PRN PRN Reason: Shortness Of Breath Aspirin EC [Ecotrin Low Dose] 81 mg PO DAILY Albuterol Inhaler [Ventolin Hfa Inhaler] 2 puff INHALATION RT-QID PRN PRN Reason: Shortness Of Breath Amoxicillin 875 mg PO Q12HR Sulfamethox-Tmp 800-160Mg [Bactrim DS 800-160 mg] 1 tab PO Q12HR Budesonide [Pulmicort] 0.5 mg INHALATION RT-BID Discharge Medication List Ipratropium-Albuterol Nebulize [Duoneb 0.5 mg-3 mg/3 ml Soln] 3 ml INHALATION RT -QID PRN 05/18/15 [History] Losartan Potassium 100 mg PO QAM 05/18/15 [History] Simvastatin [Zocor] 40 mg PO DAILY 05/18/15 [History] Albuterol Inhaler [Ventolin Hfa Inhaler] 2 puff INHALATION RT-QID PRN 04/10/17 [ History] Aspirin EC [Ecotrin Low Dose] 81 mg PO DAILY 04/10/17 [History] Amoxicillin 875 mg PO Q12HR 10/06/17 [History] Budesonide [Pulmicort] 0.5 mg INHALATION RT-BID 10/18/17 [History] Sulfamethox-Tmp 800-160Mg [Bactrim DS 800-160 mg] 1 tab PO Q12HR 10/18/17 [ History] HYDROcodone/APAP 5-325MG [[place] 5] 1 each PO Q6HR PRN #90 tab 10/19/17 [Rx] Follow up Appointment(s)/Referral(s): Agustin Yuan DO [Doctor of Osteopathic Medicine] - 2 Weeks Activity/Diet/Wound Care/Special Instructions: Keep site clean. May shower with waterproof Tegaderm intact. Do not soak in a tub. On Monday May shower with area uncovered. Avoid heavy or rigorous activity. No overhead work. No repetitive bending twisting or lifting. May ambulate to tolerance Discharge Disposition: HOME SELF-CARE
--- NOTE | 2017-10-19 12:55 | P.CONS ---
History of Present Illness - Reason for Consult Consult date: 10/19/17 Medical management - History of Present Illness This is a 72-year-old female patient of Dr. Carlos Avila, Dr. Yuan with past medical history of asthma, skin cancer, hypertension, cervical stenosis. Patient was recently hospitalized on September 18 which time she was treated for acute exacerbation of asthma and was also at that time under treatment for urinary tract infection. Patient does state that she had recent dysuria and started Bactrim which she is still taking has about 5 more days. The dysuria is resolved at this time. Patient was brought into the hospital under the care of Dr. Prado status post anterior cervical decompression and discectomy and fusion. Patient is postop day 1. She denies any dizziness or lightheadedness. She states she has pain in the neck area from the surgery only. Noted hoarseness. She does have numbness and tingling to the bilateral arms and hands which was her prior to surgery. Patient is scheduled for discharge home today. Review of Systems All systems: negative Constitutional: Denies chills, Denies fever Eyes: denies blurred vision, denies pain Ears, nose, mouth and throat: Denies headache, Denies sore throat Cardiovascular: Denies chest pain, Denies shortness of breath Respiratory: Denies cough Gastrointestinal: Denies abdominal pain, Denies diarrhea, Denies nausea, Denies vomiting Genitourinary: Denies dysuria, Denies hematuria Musculoskeletal: Denies myalgias Integumentary: Denies pruritus, Denies rash Neurological: Denies numbness, Denies weakness Psychiatric: Denies anxiety, Denies depression Endocrine: Denies fatigue, Denies weight change Past Medical History Past Medical History: Asthma, Cancer, Hyperlipidemia, Hypertension, Osteoarthritis (OA) Additional Past Medical History / Comment(s): Recent UTI finishing amoxicillin rx, skin cancer with removals, arthritis multiple joints, back and cervical pain. History of Any Multi-Drug Resistant Organisms: None Reported Past Surgical History: Cholecystectomy, Heart Catheterization, Tonsillectomy, Tubal Ligation Additional Past Surgical History / Comment(s): 2 cardiac caths without intervention, bilateral cataract removal with lens implants, skin cancer removals, cyst removed from neck, colonoscopy. Past Anesthesia/Blood Transfusion Reactions: No Reported Reaction Additional Past Anesthesia/Blood Transfusion Reaction / Comm: Pt has never received blood. Past Psychological History: No Psychological Hx Reported Additional Psychological History / Comment(s): Pt resides with her spouse. She has recently started using a cane. She drives. Smoking Status: Former smoker Past Alcohol Use History: Occasional Additional Past Alcohol Use History / Comment(s): Pt started smoking in 1961 and quit in 1981. She smoked one and half packs per day. Past Drug Use History: None Reported - Past Family History Brother(s) Family Medical History: Coronary Artery Disease (CAD) Additional Family Medical History / Comment(s): "bad heart" aneurysm Sister(s) Family Medical History: Cancer Additional Family Medical History / Comment(s): breast cancer Mother Family Medical History: Cancer, Coronary Artery Disease (CAD) Additional Family Medical History / Comment(s): Lymphoma, had a pacemaker. Mother at the age of 92yrs. Father Family Medical History: Coronary Artery Disease (CAD), Myocardial Infarction ([place] ) Additional Family Medical History / Comment(s): Father of a [place] at the age of 63 yrs. Medications and Allergies Home Medications Medication Instructions Recorded Confirmed Type Ipratropium-Albuterol Nebulize 3 ml INHALATION RT-QID PRN 05/18/15 10/18/17 History [Duoneb 0.5 mg-3 mg/3 ml Soln] Losartan Potassium 100 mg PO QAM 05/18/15 10/18/17 History Simvastatin [Zocor] 40 mg PO DAILY 05/18/15 10/18/17 History Albuterol Inhaler [Ventolin Hfa 2 puff INHALATION RT-QID PRN 04/10/17 10/18/17 History Inhaler] Aspirin EC [Ecotrin Low Dose] 81 mg PO DAILY 04/10/17 10/18/17 History Budesonide [Pulmicort] 0.5 mg INHALATION RT-BID 10/18/17 10/18/17 History Sulfamethox-Tmp 800-160Mg [Bactrim 1 tab PO Q12HR 10/18/17 10/18/17 History DS 800-160 mg] HYDROcodone/APAP 5-325MG [[place] 5] 1 each PO Q6HR PRN #90 tab 10/19/17 Rx Allergies Allergy/AdvReac Type Severity Reaction Status Date / Time adhesive Allergy blisters Verified 10/18/17 16:04 Physical Exam Vitals: Vital Signs Temp Pulse Pulse Pulse Resp BP Pulse Ox 10/19/17 08:29 17 10/19/17 08:16 98.2 F 96 17 141/65 94 L 10/19/17 07:59 83 10/19/17 07:48 82 10/19/17 01:11 97.6 F 94 16 133/79 96 10/18/17 20:00 82 10/18/17 19:41 80 10/18/17 19:00 97.7 F 107 H 20 126/71 98 10/18/17 15:15 98.9 F 98 16 125/77 95 10/18/17 14:42 78 18 131/78 96 10/18/17 14:19 93 16 110/51 98 10/18/17 13:34 95 16 117/58 96 10/18/17 12:45 94 16 108/55 94 L 10/18/17 12:30 96 16 106/54 95 10/18/17 12:23 88 14 90/57 98 10/18/17 12:16 87 16 90/50 96 10/18/17 12:00 87 16 88/53 92 L 10/18/17 11:49 84 87/51 10/18/17 11:45 82 16 78/41 92 L 10/18/17 11:30 81 14 93/54 92 L 10/18/17 11:26 97.8 F 101 H 18 92/50 94 L Intake and Output 10/18/17 10/19/17 10/19/17 22:59 06:59 14:59 Intake Total 1200 474 Balance 1200 474 Intake: Oral 1200 474 Other: Voiding Method Toilet # Voids 3 Gen: This is a 72-year-old female. She is sitting in bed and appears to be comfortable. No acute distress. No respiratory distress noted. No difficulty swallowing noted. HEENT: Head is atraumatic, normocephalic. Pupils equal, round. Sclerae is anicteric. NECK: Supple. No JVD. No lymphadenopathy. No thyromegaly. LUNGS: Clear to auscultation. No wheezes or rhonchi. No intercostal retractions. HEART: Regular rate and rhythm. No murmur. ABDOMEN: Soft. Bowel sounds are present. No masses. No tenderness. EXTREMITIES: No pedal edema. No calf tenderness. NEUROLOGICAL: Patient is awake, alert and oriented x3. Cranial nerves 2 through 12 are grossly intact. Assessment and Plan Plan: 1. Cervical stenosis status post anterior cervical decompression and discectomy and fusion with Dr. Yuan. Patient is set up for discharge home today. Continue current pain management. 2. History of moderate persistent asthma currently stable. Continue albuterol inhaler and DuoNeb treatments, Pulmicort. 3. Moderate pulmonary fibrosis, interstitial lung disease. 4. Hypertension. Continue losartan 5. Generalized osteoarthritis. 6. Hyperlipidemia. Continue Zocor 40 mg daily 7. Recent treatment for urinary tract infection. Patient to complete course of Bactrim. Impression and plan of care have been directed as dictated by the signing physician. Monica Fragoso nurse practitioner acting as scribe for signing physician.
== END 2017-10-19 11:12 | disposition home or self-care (01) | DRG 472 ==
LOC: 2ORMAIN 05:32 → 3SUR 14:51
PROVIDERS: ADMIT Orthopaedic Surgery Orthopaedic Surgery of the Spine; ATTEND Orthopaedic Surgery Orthopaedic Surgery of the Spine
PROC: 0RG20A0 Fusion of 2 or more Cervical Vertebral Joints with Interbody Fusion Device, Anterior Approach, Anterior Column, Open Approach (ICD-10-PCS; principal; 2017-10-18 07:30)
PROC: 0RG40A0 Fusion of Cervicothoracic Vertebral Joint with Interbody Fusion Device, Anterior Approach, Anterior Column, Open Approach (ICD-10-PCS; principal; 2017-10-18 07:30)
PROC: 0RT30ZZ Resection of Cervical Vertebral Disc, Open Approach (ICD-10-PCS; principal; 2017-10-18 07:30)
PROC: 0RT50ZZ Resection of Cervicothoracic Vertebral Disc, Open Approach (ICD-10-PCS; principal; 2017-10-18 07:30)
DX: M47.892 Other spondylosis, cervical region (principal); J84.9 Interstitial pulmonary disease, unspecified; J84.10 Pulmonary fibrosis, unspecified; M48.02 Spinal stenosis, cervical region; N39.0 Urinary tract infection, site not specified; G95.9 Disease of spinal cord, unspecified; M48.03 Spinal stenosis, cervicothoracic region; M47.893 Other spondylosis, cervicothoracic region; M54.12 Radiculopathy, cervical region; M25.78 Osteophyte, vertebrae; E78.5 Hyperlipidemia, unspecified; F41.9 Anxiety disorder, unspecified; I10 Essential (primary) hypertension; Z80.3 Family history of malignant neoplasm of breast; Z80.7 Family history of other malignant neoplasms of lymphoid, hematopoietic and related tissues; Z82.49 Family history of ischemic heart disease and other diseases of the circulatory system; Z85.828 Personal history of other malignant neoplasm of skin; Z87.891 Personal history of nicotine dependence; Z79.1 Long term (current) use of non-steroidal anti-inflammatories (NSAID); Z79.82 Long term (current) use of aspirin; Z79.899 Other long term (current) drug therapy; Z98.42 Cataract extraction status, left eye; Z98.41 Cataract extraction status, right eye; Z96.1 Presence of intraocular lens; Z79.891 Long term (current) use of opiate analgesic; J45.40 Moderate persistent asthma, uncomplicated
CPT/HCPCS: 72020; 86850; 86900; 86901; 94640

== ENCOUNTER 2017-10-20 12:22 | Inpatient (IN) | payer MEDICARE, BC ==
[2017-10-20] MEDS ORDERED: IPRATROPIUM-ALBUTEROL 3 ML NEB INHALATION STA (12:40)
[2017-10-20] MEDS ORDERED: SODIUM CHLORIDE 0.9% 1,000 ML IV STA (12:40)
--- NOTE | 2017-10-20 12:57 | ED ---
General Adult HPI - General Chief complaint: Shortness of Breath Stated complaint: Diff Breathing Time Seen by Provider: 10/20/17 12:24 Source: patient, RN notes reviewed, old records reviewed Mode of arrival: EMS Limitations: no limitations - History of Present Illness Initial comments: This is a 72-year-old female the ER for evaluation today. Patient presents today for evaluation regards to neck pain shortness of breath. Patient states her neck seems to be increasing in size and surgery 2 days ago. Discharge yesterday. She does admit to mild increased shortness of breath and difficulty with speech, patient was under general sedation during surgery. Patient has no chest pain. No fevers. - Related Data Home Medications Medication Instructions Recorded Confirmed Ipratropium-Albuterol Nebulize 3 ml INHALATION RT-QID PRN 05/18/15 10/20/17 [Duoneb 0.5 mg-3 mg/3 ml Soln] Losartan Potassium 100 mg PO QAM 05/18/15 10/20/17 Simvastatin [Zocor] 40 mg PO DAILY 05/18/15 10/20/17 Albuterol Inhaler [Ventolin Hfa 2 puff INHALATION RT-QID PRN 04/10/17 10/20/17 Inhaler] Aspirin EC [Ecotrin Low Dose] 81 mg PO DAILY 04/10/17 10/20/17 Budesonide [Pulmicort] 0.5 mg INHALATION RT-BID 10/18/17 10/20/17 Sulfamethox-Tmp 800-160Mg [Bactrim 1 tab PO Q12HR 10/18/17 10/20/17 DS 800-160 mg] HYDROcodone/APAP 5-325MG [[place] 5] 1 tab PO Q6HR PRN 10/20/17 10/20/17 Allergies Allergy/AdvReac Type Severity Reaction Status Date / Time adhesive Allergy blisters Verified 10/20/17 13:00 Review of Systems ROS Statement: Those systems with pertinent positive or pertinent negative responses have been documented in the HPI. ROS Other: All systems not noted in ROS Statement are negative. Past Medical History Past Medical History: Asthma, Cancer, Hyperlipidemia, Hypertension, Osteoarthritis (OA) Additional Past Medical History / Comment(s): Recent UTI finishing amoxicillin rx, skin cancer with removals, arthritis multiple joints, back and cervical pain. History of Any Multi-Drug Resistant Organisms: None Reported Past Surgical History: Cholecystectomy, Heart Catheterization, Tonsillectomy, Tubal Ligation Additional Past Surgical History / Comment(s): 2 cardiac caths without intervention, bilateral cataract removal with lens implants, skin cancer removals, cyst removed from neck, colonoscopy. Past Anesthesia/Blood Transfusion Reactions: No Reported Reaction Additional Past Anesthesia/Blood Transfusion Reaction / Comment(s): Pt has never received blood. Past Psychological History: No Psychological Hx Reported Smoking Status: Former smoker Past Alcohol Use History: Occasional Past Drug Use History: None Reported - Past Family History Brother(s) Family Medical History: Coronary Artery Disease (CAD) Additional Family Medical History / Comment(s): "bad heart" aneurysm Sister(s) Family Medical History: Cancer Additional Family Medical History / Comment(s): breast cancer Mother Family Medical History: Cancer, Coronary Artery Disease (CAD) Additional Family Medical History / Comment(s): Lymphoma, had a pacemaker. Mother at the age of 92yrs. Father Family Medical History: Coronary Artery Disease (CAD), Myocardial Infarction ([place] ) Additional Family Medical History / Comment(s): Father of a [place] at the age of 63 yrs. General Exam - General Exam Comments Initial Comments: Significant neck swelling, no stridor , Anterior cervical hematoma Limitations: no limitations General appearance: alert, in no apparent distress Head exam: Present: atraumatic, normocephalic, normal inspection Eye exam: Present: normal appearance, PERRL, EOMI. Absent: scleral icterus, conjunctival injection, periorbital swelling ENT exam: Present: normal exam, mucous membranes moist, other (hoarse voice) Neck exam: Present: normal inspection. Absent: tenderness, meningismus, lymphadenopathy Respiratory exam: Present: normal lung sounds bilaterally. Absent: respiratory distress, wheezes, rales, rhonchi, stridor Cardiovascular Exam: Present: regular rate, normal rhythm, normal heart sounds. Absent: systolic murmur, diastolic murmur, rubs, gallop, clicks GI/Abdominal exam: Present: soft, normal bowel sounds. Absent: distended, tenderness, guarding, rebound, rigid Extremities exam: Present: normal inspection, full ROM, normal capillary refill. Absent: tenderness, pedal edema, joint swelling, calf tenderness Back exam: Present: normal inspection Neurological exam: Present: alert, oriented X3, CN II-XII intact Psychiatric exam: Present: normal affect, normal mood Skin exam: Present: warm, dry, intact, normal color. Absent: rash Course Vital Signs 10/20/17 10/20/17 10/20/17 12:36 13:10 13:14 Temperature Pulse Rate 89 104 H Respiratory 18 18 Rate Blood Pressure 139/60 O2 Sat by Pulse 96 Oximetry 10/20/17 10/20/17 10/20/17 13:22 15:03 15:46 Temperature 97.8 F 97.2 F L Pulse Rate 96 94 98 Respiratory 16 16 Rate Blood Pressure 104/57 141/64 O2 Sat by Pulse 93 L 98 Oximetry - Reevaluation(s) Reevaluation #1: 10/20/17 16:[address] Yuan regarding patient's symptoms, he is aware Reevaluation #2: 10/20/17 16:03 Patient is in no acute distress, pulse ox normal, patient started on steroids EKG Findings - EKG Comments: EKG Findings:: EKG shows normal sinus rhythm rate 99, OH 158, QRS 90, QTc 444 Medical Decision Making - Medical Decision Making 72 female the ER for evaluation of shortness of breath, neck edema status post swelling, increased edema since hematoma. Patient will be admitted for monitoring of swelling of postop edema - Lab Data Result diagrams: 10/20/17 13:01 10/20/17 14:47 Lab Results 10/20/17 10/20/17 10/20/17 Range/Units 13:01 13:01 13:01 WBC 11.9 H (3.8-10.6) k/uL RBC 4.05 (3.80-5.40) m/uL Hgb 12.0 (11.4-16.0) gm/dL Hct 35.5 (34.0-46.0) % MCV 87.5 (80.0-100.0) fL MCH 29.5 (25.0-35.0) pg MCHC 33.8 (31.0-37.0) g/dL RDW 13.6 (11.5-15.5) % Plt Count 174 (150-450) k/uL Neutrophils % 65 % Lymphocytes % 24 % Monocytes % 8 % Eosinophils % 2 % Basophils % 0 % Neutrophils # 7.8 H (1.3-7.7) k/uL Lymphocytes # 2.8 (1.0-4.8) k/uL Monocytes # 1.0 (0-1.0) k/uL Eosinophils # 0.2 (0-0.7) k/uL Basophils # 0.0 (0-0.2) k/uL PT 9.4 (9.0-12.0) sec INR 0.9 (<1.2) APTT 18.3 L (22.0-30.0) sec Sodium (137-145) mmol/L Potassium (3.5-5.1) mmol/L Chloride (98-107) mmol/L Carbon Dioxide (22-30) mmol/L Anion Gap mmol/L BUN (7-17) mg/dL Creatinine (0.52-1.04) mg/dL Est GFR (CKD-EPI)AfAm (>60 ml/min/1.73 sqM) Est GFR (CKD-EPI)NonAf (>60 ml/min/1.73 sqM) Glucose (74-99) mg/dL Calcium (8.4-10.2) mg/dL Magnesium (1.6-2.3) mg/dL Total Bilirubin (0.2-1.3) mg/dL AST (14-36) U/L ALT (9-52) U/L Alkaline Phosphatase (38-126) U/L Total Creatine Kinase (30-135) U/L CK-MB (CK-2) (0.0-2.4) ng/mL CK-MB (CK-2) Rel Index Troponin I (0.000-0.034) ng/mL NT-Pro-B Natriuret Pep 47 pg/mL Total Protein (6.3-8.2) g/dL Albumin (3.5-5.0) g/dL 10/20/17 10/20/17 Range/Units 14:47 14:47 WBC (3.8-10.6) k/uL RBC (3.80-5.40) m/uL Hgb (11.4-16.0) gm/dL Hct (34.0-46.0) % MCV (80.0-100.0) fL MCH (25.0-35.0) pg MCHC (31.0-37.0) g/dL RDW (11.5-15.5) % Plt Count (150-450) k/uL Neutrophils % % Lymphocytes % % Monocytes % % Eosinophils % % Basophils % % Neutrophils # (1.3-7.7) k/uL Lymphocytes # (1.0-4.8) k/uL Monocytes # (0-1.0) k/uL Eosinophils # (0-0.7) k/uL Basophils # (0-0.2) k/uL PT (9.0-12.0) sec INR (<1.2) APTT (22.0-30.0) sec Sodium 132 L (137-145) mmol/L Potassium 4.0 (3.5-5.1) mmol/L Chloride 99 (98-107) mmol/L Carbon Dioxide 25 (22-30) mmol/L Anion Gap 8 mmol/L BUN 16 (7-17) mg/dL Creatinine 0.82 (0.52-1.04) mg/dL Est GFR (CKD-EPI)AfAm 83 (>60 ml/min/1.73 sqM) Est GFR (CKD-EPI)NonAf 72 (>60 ml/min/1.73 sqM) Glucose 109 H (74-99) mg/dL Calcium 8.4 (8.4-10.2) mg/dL Magnesium 2.3 (1.6-2.3) mg/dL Total Bilirubin 0.5 (0.2-1.3) mg/dL AST 19 (14-36) U/L ALT 28 (9-52) U/L Alkaline Phosphatase 73 (38-126) U/L Total Creatine Kinase 72 (30-135) U/L CK-MB (CK-2) 1.2 (0.0-2.4) ng/mL CK-MB (CK-2) Rel Index 1.7 Troponin I <0.012 (0.000-0.034) ng/mL NT-Pro-B Natriuret Pep pg/mL Total Protein 5.5 L (6.3-8.2) g/dL Albumin 3.1 L (3.5-5.0) g/dL - Radiology Data Radiology results: report reviewed (Chest x-rays negative for acute disease), image reviewed Disposition Clinical Impression: Neck swelling, Dyspnea, Acute severe exacerbation of asthma, Postoperative edema Disposition: ADMITTED IP TO THIS [facility] Condition: Good
[2017-10-20 13:19] LABS: Basophils % (A) 0 %; Eosinophils # (A) 0.2 k/uL (0-0.7); Eosinophils % (A) 2 %; HCT 35.5 % (34.0-46.0); Lymphocytes # (A) 2.8 k/uL (1.0-4.8); Lymphocytes % (A) 24 %; MCH 29.5 pg (25.0-35.0); MCHC 33.8 g/dL (31.0-37.0); MCV 87.5 fL (80.0-100.0); Mean Platelet Volume 8.9; Monocytes % (A) 8 %; Neutrophils # (A) 7.8 k/uL (1.3-7.7); Neutrophils % (A) 65 %; Platelet Count 174 k/uL (150-450); RBC 4.05 m/uL (3.80-5.40); RDW 13.6 % (11.5-15.5); WBC 11.9 k/uL (3.8-10.6)
--- NOTE | 2017-10-20 13:36 | XR ---
EXAMINATION TYPE: XR chest 2V DATE OF EXAM: 10/20/2017 COMPARISON: Prior chest 09/18/[address] chest 09/19/2017 HISTORY: Difficulty breathing and pulmonary fibrosis TECHNIQUE: Frontal and lateral views of the chest are obtained. FINDINGS: There is no focal air space opacity, pleural effusion, or pneumothorax seen. The cardiac silhouette size is stable and possibly enlarged. Postop changes are noted to the cervical spine. Ther e are overlying cardiac leads. Interstitium is prominent. The osseous structures are intact. IMPRESSION: Findings are similar to prior exam, suspect borderline increased cardiac size. Findings compatible with pulmonary fibrosis.
[2017-10-20 13:37] LABS: INR 0.9 (<1.2); Prothrombin Time 9.4 sec (9.0-12.0)
[2017-10-20 13:38] LABS: Partial Thromboplastin Time 18.3 sec (22.0-30.0)
[2017-10-20] MEDS ORDERED: MORPHINE SULFATE 4MG/4ML SYRG IVP STA (13:38)
[2017-10-20] MEDS ORDERED: methylPREDNISolone SOD SUCCI 125 MG/2 ML VIAL IV STA (14:40)
[2017-10-20 15:14] LABS: Albumin 3.1 g/dL (3.5-5.0); Calcium 8.4 mg/dL (8.4-10.2); Magnesium 2.3 mg/dL (1.6-2.3); Total Bilirubin 0.5 mg/dL (0.2-1.3); Total Protein 5.5 g/dL (6.3-8.2)
[2017-10-20 15:17] LABS: Creatine Kinase 72 U/L (30-135)
[2017-10-20 15:30] LABS: Creatine Kinase MB 1.2 ng/mL (0.0-2.4); Troponin I <0.012 ng/mL (0.000-0.034)
[2017-10-20] MEDS: IPRATROPIUM-ALBUTEROL 3 ML NEB INHALATION SCH ×2 (15:45→19:45)
[2017-10-20] MEDS ORDERED: RX INFO: IV CONTRAST WAS GIVEN 1 EACH MISC MISCELLANE PRN (15:56)
--- NOTE | 2017-10-20 16:17 | P.HPIM ---
History of Present Illness H&P Date: 10/20/17 Chief Complaint: shortness of breath 72 [address] of Dr[address] Avila's medical history of asthma, skin cancer, hyperlipidemia, hypertension. We sent anterior cervical decompression with discectomy and fusion at C3 4 C4 5 and C5 6 and C6 7 for severe cervical stenosis and disc degeneration with upper extremity radiculopathy and early myelopathy done on 10/17. Patient did have some difficulty swallowing with a feeling of lump in her throat day after surgery which improved on the day of the discharge. Patient states she was doing well until this morning when she started having shortness of breath associated with change in voice. She states it's difficult to take a deep breath. She does not know if the swelling has increased. She denies any fever but endorses chills. Heart rate 104, respiratory rate 18. Blood pressure 104/57 afebrile to touch. Labs are unremarkable. Patient evaluated at bedside did have significant swelling on the interior side of the neck concerning for possible fluid collection underneath the incision site. Stat CT chest and neck ordered. Dr. yuan consulted. Pulmonary consulted for further recommendation. Patient initiated on steroids. No concerning for infection at this point. Review of Systems Constitutional: Denies chills, Denies fever, Denies lethargy, Denies malaise, Denies poor appetite, Denies weakness, Denies weight loss Eyes: denies decreased vision, denies diplopia, denies discharge, denies pain Ears: deny: decreased hearing Ears, nose, mouth and throat: Denies dental pain, Denies headache, Denies nasal discharge, Denies nose pain endorses poor throat pain, no difficulty swallowing liquids or solid, endorses change in voice. Cardiovascular: Denies chest pain, Denies decreased exercise tolerance, Denies edema, Denies high blood pressure, Denies irregular heart beat, Denies palpitations, Denies paroxysmal nocturnal dyspnea, Denies rapid heart beat, Denies shortness of breath Respiratory: Denies congestion, endorses dry cough, Denies cough with sputum, endorses dyspnea, Denies home oxygen, Denies wheezing Gastrointestinal: Denies abdominal pain, Denies change in bowel habits, Denies coffee ground emesis, Denies early satiety, Denies excessive gas, Denies heartburn, Denies hematemesis, Denies hematochezia, Denies loss of appetite, Denies nausea, Denies vomiting Genitourinary: Denies dysuria, Denies flank pain, Denies kidney stones, Denies menorrhagia, Denies urgency, Denies urinary frequency Musculoskeletal: Denies gait dysfunction, Denies limitation of motion, Denies morning stiffness, Denies muscle cramps Integumentary: Denies rash, Denies wounds, Denies brittle nails, Denies change in hair/nails, Denies darkening of skin Neurological: Denies balance difficulties, Denies change in speech, Denies double vision, Denies gait dysfunction, Denies loss of vision, Denies motor disturbance, Denies numbness, Denies paralysis, Denies paresthesias, Denies seizures Psychiatric: Denies anxiety, Denies depression Endocrine: Denies excessive sweating, Denies excessive thirst, Denies high blood sugars, Denies palpitations Hematologic/Lymphatic: Denies easy bruising, Denies lymphadenopathy Past Medical History Past Medical History: Asthma, Cancer, Hyperlipidemia, Hypertension, Osteoarthritis (OA) Additional Past Medical History / Comment(s): Recent UTI finishing amoxicillin rx, skin cancer with removals, arthritis multiple joints, back and cervical pain. History of Any Multi-Drug Resistant Organisms: None Reported Past Surgical History: Cholecystectomy, Heart Catheterization, Tonsillectomy, Tubal Ligation Additional Past Surgical History / Comment(s): 2 cardiac caths without intervention, bilateral cataract removal with lens implants, skin cancer removals, cyst removed from neck, colonoscopy. Past Anesthesia/Blood Transfusion Reactions: No Reported Reaction Additional Past Anesthesia/Blood Transfusion Reaction / Comment(s): Pt has never received blood. Past Psychological History: No Psychological Hx Reported Smoking Status: Former smoker Past Alcohol Use History: Occasional Past Drug Use History: None Reported - Past Family History Brother(s) Family Medical History: Coronary Artery Disease (CAD) Additional Family Medical History / Comment(s): "bad heart" aneurysm Sister(s) Family Medical History: Cancer Additional Family Medical History / Comment(s): breast cancer Mother Family Medical History: Cancer, Coronary Artery Disease (CAD) Additional Family Medical History / Comment(s): Lymphoma, had a pacemaker. Mother at the age of 92yrs. Father Family Medical History: Coronary Artery Disease (CAD), Myocardial Infarction ([place] ) Additional Family Medical History / Comment(s): Father of a [place] at the age of 63 yrs. Medications and Allergies Home Medications Medication Instructions Recorded Confirmed Type Ipratropium-Albuterol Nebulize 3 ml INHALATION RT-QID PRN 05/18/15 10/20/17 History [Duoneb 0.5 mg-3 mg/3 ml Soln] Losartan Potassium 100 mg PO QAM 05/18/15 10/20/17 History Simvastatin [Zocor] 40 mg PO DAILY 05/18/15 10/20/17 History Albuterol Inhaler [Ventolin Hfa 2 puff INHALATION RT-QID PRN 04/10/17 10/20/17 History Inhaler] Aspirin EC [Ecotrin Low Dose] 81 mg PO DAILY 04/10/17 10/20/17 History Budesonide [Pulmicort] 0.5 mg INHALATION RT-BID 10/18/17 10/20/17 History Sulfamethox-Tmp 800-160Mg [Bactrim 1 tab PO Q12HR 10/18/17 10/20/17 History DS 800-160 mg] HYDROcodone/APAP 5-325MG [[place] 5] 1 tab PO Q6HR PRN 10/20/17 10/20/17 History Allergies Allergy/AdvReac Type Severity Reaction Status Date / Time adhesive Allergy blisters Verified 10/20/17 13:00 Physical Exam Vitals: Vital Signs Temp Pulse Resp BP Pulse Ox 10/20/17 15:46 97.2 F L 98 16 141/64 98 10/20/17 15:03 97.8 F 94 16 104/57 93 L 10/20/17 13:22 96 10/20/17 13:14 18 10/20/17 13:10 104 H 10/20/17 12:36 89 18 139/60 96 Intake and Output 10/20/17 10/20/17 10/20/17 06:59 14:59 22:59 Other: Weight 81.647 kg - Constitutional General appearance: cooperative, in moderate acute distress, obese - EENT Eyes: anicteric sclerae, PERRLA, normal appearance ENT: hearing grossly normal unable to see the back of the throat due to patient' s medical condition. Patient has difficulty in moving her neck from recent surgery. Anterior incision site appears without any drainage. Patient does have significant erythema with collection of fluid underneath the incision concerning for compression. - Neck Neck: no lymphadenopathy, normal ROM, no other, no rigidity, no stridor, no thyromegaly - Respiratory Respiratory: bilateral: CTA, bilateral basilar crackles - Cardiovascular Rhythm: regular Heart sounds: normal: S1, S2 Abnormal Heart Sounds: no systolic murmur, no diastolic murmur, no rub, no S3 Gallop, no S4 Gallop, no click, no other - Gastrointestinal General gastrointestinal: normal bowel sounds, soft - Integumentary Integumentary: no rash - Neurologic Neurologic: CNII-XII intact - Musculoskeletal Musculoskeletal: gait normal, strength equal bilaterally - Psychiatric Psychiatric: A&O x's 3, appropriate affect Results CBC & Chem 7: 10/20/17 13:01 10/20/17 14:47 Labs: Abnormal Lab Results - Last 24 Hours (Table) 10/20/17 10/20/17 10/20/17 Range/Units 13:01 13:01 14:47 WBC 11.9 H (3.8-10.6) k/uL Neutrophils # 7.8 H (1.3-7.7) k/uL APTT 18.3 L (22.0-30.0) sec Sodium 132 L (137-145) mmol/L Glucose 109 H (74-99) mg/dL Total Protein 5.5 L (6.3-8.2) g/dL Albumin 3.1 L (3.5-5.0) g/dL Thrombosis Risk Factor Assmnt - DVT/VTE Prophylaxis DVT/VTE Prophylaxis: Pharmacologic Prophylaxis ordered Assessment and Plan Plan: 1. #1 acute shortness of breath associated with cough production likely secondary to laryngeal compression. No wheezing on examination, unlikely to be bronchitis Chest x-ray suggestive of interstitial fibrosis. CT chest neck ordered stat. Dr. Yuan to be notified of patient's presence in the ER. Continue Solu-Medrol 60 every 6. Withhold antibiotic as there is no concern of infection at this point. 2. Severe Cervical stenosis with radiculopathy status post anterior cervical decompression and discectomy and fusion with Dr. Yuan. Continue current pain management. Restriction on weight . Concern for underlying fluid collection compressing on the larynx CT neck ordered 3. History of moderate persistent asthma currently stable. Continue albuterol inhaler and DuoNeb treatments, Pulmicort. 4. Moderate pulmonary fibrosis, interstitial lung disease. 5. Hypertension. Continue losartan 6. Generalized osteoarthritis. 7. Hyperlipidemia. Continue Zocor 40 mg daily 8. Recent treatment for urinary tract infection. Patient to complete course of Bactrim. 9. Disposition likely pending clinical improvement. 10 cord status full code 11 GI prophylaxis with Pepcid 20 mg IV daily 12 DVT prophylaxis with Lovenox 24 hours
[2017-10-20 16:58] VITALS: BMI 35.2
--- NOTE | 2017-10-20 17:05 | P.CNOR ---
History of Present Illness - HPI Consult date: 10/20/17 History of present illness: Patient is very pleasant 72-year-old female who is well known to our service. She just had surgery at her cervical spine with our service and is now postoperative day #2. She underwent anterior cervical discectomy with fusion at C34 C4 5 C5 6 and C6 7 for her cervical stenosis with degenerative disc disease upper extremity radiculopathy and early myelopathy. I saw her yesterday prior to her discharge and her neck was soft and supple. The night of her surgery she did have some difficulty breathing and I saw her that evening as well. Her neck was soft and supple at that point. She does have somewhat of a thick neck and fatty collection at her neck. She had was noted to have some bruising around the incision site. She says that she was doing well yesterday but today to experience some increased shortness of breath. She says that she still has been able to swallow and eat. She has scratching us in her voice. She does not feel as though she is having chest pain. She's not having any changes in her upper extremities. She's not having changes in her lower extremity. She denies any fevers or chills. Review of Systems As stated in HPI. She is postoperative day #2 status post decompression and fusion at her cervical spine. She feels her arms are doing well. She is complaining of shortness of breath as stated in HPI. She is also complaining of some hoarseness in her voice. Past Medical History Past Medical History: Asthma, Cancer, Hyperlipidemia, Hypertension, Musculoskeletal Disorder (Postoperative day #2 status post anterior cervical discectomy and fusion C34 C4 5 C5 6 C6 7 for her cervical stenosis and degenerative disc disease), Osteoarthritis (OA) Additional Past Medical History / Comment(s): Recent UTI finishing amoxicillin rx, skin cancer with removals, arthritis multiple joints, back and cervical pain. History of Any Multi-Drug Resistant Organisms: None Reported Past Surgical History: Cholecystectomy, Heart Catheterization, Tonsillectomy, Tubal Ligation Additional Past Surgical History / Comment(s): 2 cardiac caths without intervention, bilateral cataract removal with lens implants, skin cancer removals, cyst removed from neck, colonoscopy. Past Anesthesia/Blood Transfusion Reactions: No Reported Reaction Additional Past Anesthesia/Blood Transfusion Reaction / Comm: Pt has never received blood. Past Psychological History: No Psychological Hx Reported Smoking Status: Former smoker Past Alcohol Use History: Occasional Past Drug Use History: None Reported - Past Family History Brother(s) Family Medical History: Coronary Artery Disease (CAD) Additional Family Medical History / Comment(s): "bad heart" aneurysm Sister(s) Family Medical History: Cancer Additional Family Medical History / Comment(s): breast cancer Mother Family Medical History: Cancer, Coronary Artery Disease (CAD) Additional Family Medical History / Comment(s): Lymphoma, had a pacemaker. Mother at the age of 92yrs. Father Family Medical History: Coronary Artery Disease (CAD), Myocardial Infarction (MA ) Additional Family Medical History / Comment(s): Father of a MA at the age of 63 yrs. Medications and Allergies Home Medications Medication Instructions Recorded Confirmed Type Ipratropium-Albuterol Nebulize 3 ml INHALATION RT-QID PRN 05/18/15 10/20/17 History [Duoneb 0.5 mg-3 mg/3 ml Soln] Losartan Potassium 100 mg PO QAM 05/18/15 10/20/17 History Simvastatin [Zocor] 40 mg PO DAILY 05/18/15 10/20/17 History Albuterol Inhaler [Ventolin Hfa 2 puff INHALATION RT-QID PRN 04/10/17 10/20/17 History Inhaler] Aspirin EC [Ecotrin Low Dose] 81 mg PO DAILY 04/10/17 10/20/17 History Budesonide [Pulmicort] 0.5 mg INHALATION RT-BID 10/18/17 10/20/17 History Sulfamethox-Tmp 800-160Mg [Bactrim 1 tab PO Q12HR 10/18/17 10/20/17 History DS 800-160 mg] HYDROcodone/APAP 5-325MG [[place] 5] 1 tab PO Q6HR PRN 10/20/17 10/20/17 History Allergies Allergy/AdvReac Type Severity Reaction Status Date / Time adhesive Allergy blisters Verified 10/20/17 13:00 Physical Examination Osteopathic Statement: *. No significant issues noted on an osteopathic structural exam other than those noted in the History and Physical/Consult. - C Spine: dermatomal strength & reflexes bilateral Shoulder strength: flexion: 5/5 (At the patient's neck I removed the dressing. There is no drainage at all. Her incision site is clear. There is some Dermabond over the top of the incision which appears to be stable. There is some ecchymosis and bruising around the incision site itself. There is no erythema. There is no obvious fluid collection or tension at her wound. Her neck is soft it is supple. She has somewhat of a bulbous neck with adipose tissue but there is no obvious tension or distortion at her trachea or her neck itself. The incision appears to be healing appropriately. At her upper extremity she has good strength and range of motion throughout which is unchanged from prior to her surgery. She feels that her hands and arms feel better than they did prior to her surgery. She is able to talk and she is able to move her neck comfortably. She does have some hoarseness in her voice. She is saturating well on 3 L nasal cannula. She's not hypoxic.) Results - Labs Labs: Abnormal Lab Results - Last 24 Hours (Table) 10/20/17 10/20/17 10/20/17 Range/Units 13:01 13:01 14:47 WBC 11.9 H (3.8-10.6) k/uL Neutrophils # 7.8 H (1.3-7.7) k/uL APTT 18.3 L (22.0-30.0) sec Sodium 132 L (137-145) mmol/L Glucose 109 H (74-99) mg/dL Total Protein 5.5 L (6.3-8.2) g/dL Albumin 3.1 L (3.5-5.0) g/dL H & H 10/20/17 Range/Units 13:01 Hgb 12.0 (11.4-16.0) gm/dL Hct 35.5 (34.0-46.0) % Coagulation 10/20/17 Range/Units 13: INR 0.9 (<1.2) Result Diagrams: 10/20/17 13:01 10/20/17 14:47 Assessment and Plan Plan: Postoperative day #2 status post anterior cervical decompression with discectomy and fusion C5 3 4 C4 5 C5 6 and C6 7 Which was done it for her diagnosis of cervical stenosis with degenerative disc disease neck pain with upper extremity throughout the and early mild myelomalacia She is having some postoperative shortness of breath She has some ecchymosis around her incision The patient has some feelings of shortness of breath postoperatively but I do not think that she has an expansile hematoma causing compression over her trachea. Her neck is still soft and supple and I do not think that she has a compressive mass causing severe compression on her trachea to give her shortness of breath. She is scheduled had a computed tomography scan of her neck and certainly that will have some fluid collection given her recent surgery and will likely show some inflammation over her trachea and esophagus. At this point I do not have plans on doing open irrigation or evacuation of hematoma at her cervical spine. She is saturating appropriately with nasal cannula and is not hypoxic. I think that we need to continue to monitor this closely. If she does develop severe tension at her neck then we would certainly consider the possibility of doing an evacuation of hematoma but I do not believe that she has expansive hematoma at this point. The patient has some fibrous issues with her lungs and this may be contributing to her shortness of breath as well along with the inflammation around her trachea and esophagus. She may do well with anti-inflammatories or short course of steroid medication. She is being admitted to medicine service and I think this is appropriate for continued medical management. It is okay for the patient to mobilize and ambulate to her tolerance. We will monitor closely here in Hospital. We will obtain new x-rays of her cervical spines well.
--- NOTE | 2017-10-20 17:08 | CT ---
EXAMINATION TYPE: CT neck chest w con DATE OF EXAM: 10/20/2017 4:46 PM COMPARISON: Chest CT scan 09/18/2017 HISTORY: Increased swelling and MARLIN. CT DLP: 1540 mGycm Automated exposure control for dose reduction was used. CONTRAST: CT scan of the neck and chest is performed following with IV Contrast, patient injected with 100ml mL of Isovue M300. Axial images are obtained, coronal and sagittal reformatted images are reviewed. FINDINGS: There is fluid around the right thyroid lobe extending 8 into the superior mediastinum through a smal l extent and superiorly to the right submandibular some Reglan. There are a few soft tissue air bubbl es inferior to the right submandibular salivary gland within the fluid. This measures up to 1 cm in t hickness. Parotid glands are symmetric. There is increased density in the subcutaneous fat anteriorly at the st ernal notch and extending superiorly along the right side of the neck. Thyroid gland is symmetric. There is normal contrast opacification of the carotid arteries and jugula r veins. There is normal opacification of the vertebral arteries. Right vertebral artery is larger th an the left. There is fairly normal aeration of the visualized sphenoid and ethmoid and maxillary sinuses. Epiglot tis appears normal. The subglottic trachea appears normal. I see no evidence of a pharyngeal mass. Th e tonsils are symmetric. There is a plate with screws fusing anteriorly the cervical spine from C3 to C7. There is a minimal anterior subluxation of C7 in relation to T1 with some facet arthropathy. There are enlarged paratracheal lymph nodes that measure up to 1 cm. There is no pericardial effusion . Thoracic aorta is atheromatous. There is no evidence of aneurysm or dissection. There is coarse int erstitial infiltrate in both lungs. There is no pleural effusion. There are spondylotic changes in th e thoracic spine. IMPRESSION: Coarse pulmonary interstitial infiltrates consistent with fibrosis and interstitial pneu monia that is improved compared to old CT scan. Mild mediastinal adenopathy is improved compared to o ld exam. There is superior mediastinal fluid density on the right side extending up to the submandibular saliv alyssa gland around the parotid gland with air bubbles . This patient had the fusion surgery 2 days ago. This appearance is consistent with postsurgical changes and hematoma or seroma. Clinical correlation is recommended. Fluid anteriorly in the subcutaneous tissues is new compared to old CT scan. The ol d chest CT scan does not include the area of the neck. Abscess is not excluded.
[2017-10-20] MEDS: HYDROcodone/APAP 5-325MG 1 EACH TAB PO PRN (18:05)
[2017-10-20] MEDS: BUDESONIDE 0.5 MG/2 ML NEBU INHALATION SCH (19:45)
[2017-10-20 20:57] LABS: Glucose,Whole Blood 219 mg/dL (75-99)
[2017-10-20] MEDS ORDERED: SULFAMETHOX-TMP 800-160MG 1 EACH TAB PO SCH (21:00)
[2017-10-20] MEDS: INSULIN ASPART 100 UNIT/ML 1 ML 10 ML VIAL SQ SCH (21:35)
[2017-10-21] MEDS: HYDROcodone/APAP 5-325MG 1 EACH TAB PO PRN ×4 (00:11→18:02)
[2017-10-21] MEDS: methylPREDNISolone SOD SUCCI 125 MG/2 ML VIAL IV SCH ×4 (00:46→18:02)
[2017-10-21] MEDS: IPRATROPIUM-ALBUTEROL 3 ML NEB INHALATION PRN (03:45)
[2017-10-21 07:10] LABS: Glucose,Whole Blood 156 mg/dL (75-99)
[2017-10-21 07:44] LABS: Basophils % (A) 0 %; Eosinophils % (A) 0 %; HCT 35.5 % (34.0-46.0); HGB 11.6 gm/dL (11.4-16.0); Lymphocytes # (A) 0.7 k/uL (1.0-4.8); Lymphocytes % (A) 10 %; MCHC 32.6 g/dL (31.0-37.0); MCV 89.1 fL (80.0-100.0); Mean Platelet Volume 7.4; Monocytes # (A) 0.1 k/uL (0-1.0); Monocytes % (A) 2 %; Neutrophils # (A) 6.4 k/uL (1.3-7.7); Neutrophils % (A) 88 %; Platelet Count 200 k/uL (150-450); RBC 3.98 m/uL (3.80-5.40); RDW 13.5 % (11.5-15.5); WBC 7.3 k/uL (3.8-10.6)
[2017-10-21] MEDS: BUDESONIDE 0.5 MG/2 ML NEBU INHALATION SCH ×2 (07:44→20:09)
[2017-10-21] MEDS: IPRATROPIUM-ALBUTEROL 3 ML NEB INHALATION SCH ×4 (07:44→20:10)
[2017-10-21 07:56] LABS: ALT 26 U/L (9-52); AST 16 U/L (14-36); Albumin 3.5 g/dL (3.5-5.0); Alkaline Phosphatase 80 U/L (38-126); Anion Gap 11 mmol/L; Blood Urea Nitrogen 12 mg/dL (7-17); Calcium 9.2 mg/dL (8.4-10.2); Carbon Dioxide 27 mmol/L (22-30); Chloride 99 mmol/L (98-107); Glucose 155 mg/dL (74-99); Potassium 4.3 mmol/L (3.5-5.1); Sodium 137 mmol/L (137-145); Total Bilirubin 0.5 mg/dL (0.2-1.3)
[2017-10-21] MEDS: ATORVASTATIN 20 MG TAB PO SCH (08:01)
[2017-10-21] MEDS: LOSARTAN 50 MG TAB PO SCH (08:01)
[2017-10-21] MEDS: ENOXAPARIN 40 MG/0.4 ML SYRINGE SQ SCH (08:01)
[2017-10-21] MEDS: INSULIN ASPART 100 UNIT/ML 1 ML 10 ML VIAL SQ SCH ×4 (08:01→21:27)
[2017-10-21] MEDS: SULFAMETHOX-TMP 800-160MG 1 EACH TAB PO SCH (08:01)
[2017-10-21] MEDS ORDERED: FAMOTIDINE 20 MG/2 ML VIAL IV SCH (09:00)
--- NOTE | 2017-10-21 09:54 | P.PN ---
Subjective Progress Note Date: 10/21/17 This is a 72-year-old female who is status post anterior cervical discectomy with fusion at C3 4, C4 5, C5 6 and C6 7. This is postoperative day #3. Today patient states that it is easier for her to breathe today. Patient states that she has been keeping ice over the cervical incision. Patient denies any new complaints today. Objective - Vital Signs Vital signs: Vital Signs Temp 98 F 10/21/17 07:00 Pulse 84 10/21/17 07:57 Resp 14 10/21/17 07:00 BP 148/68 10/21/17 07:00 Pulse Ox 98 10/21/17 07:00 Intake & Output 10/20/17 10/21/17 10/21/17 18:59 06:59 18:59 Weight 81.647 kg Other: # Voids 2 - Exam On exam patient is alert and oriented 3 and in no acute distress. There is ecchymosis around the cervical incision. There is no drainage. Incision is clean, dry and intact. Soft tissue around the cervical incision is soft. Patient has good range of motion of bilateral upper extremities. Patient has no difficulty carrying on conversation. - Labs CBC & Chem 7: 10/21/17 07:18 10/21/17 07:18 Labs: Abnormal Lab Results - Last 24 Hours (Table) 10/20/17 10/20/17 10/20/17 Range/Units 13:01 13:01 14:47 WBC 11.9 H (3.8-10.6) k/uL Neutrophils # 7.8 H (1.3-7.7) k/uL Lymphocytes # (1.0-4.8) k/uL APTT 18.3 L (22.0-30.0) sec Sodium 132 L (137-145) mmol/L Glucose 109 H (74-99) mg/dL POC Glucose (mg/dL) (75-99) mg/dL Total Protein 5.5 L (6.3-8.2) g/dL Albumin 3.1 L (3.5-5.0) g/dL 10/20/17 10/21/17 10/21/17 Range/Units 20:55 07:07 07:18 WBC (3.8-10.6) k/uL Neutrophils # (1.3-7.7) k/uL Lymphocytes # 0.7 L (1.0-4.8) k/uL APTT (22.0-30.0) sec Sodium (137-145) mmol/L Glucose (74-99) mg/dL POC Glucose (mg/dL) 219 H 156 H (75-99) mg/dL Total Protein (6.3-8.2) g/dL Albumin (3.5-5.0) g/dL 10/21/17 Range/Units 07:18 WBC (3.8-10.6) k/uL Neutrophils # (1.3-7.7) k/uL Lymphocytes # (1.0-4.8) k/uL APTT (22.0-30.0) sec Sodium (137-145) mmol/L Glucose 155 H (74-99) mg/dL POC Glucose (mg/dL) (75-99) mg/dL Total Protein 6.0 L (6.3-8.2) g/dL Albumin (3.5-5.0) g/dL Assessment and Plan (1) Dyspnea Current Visit: Yes Status: Acute Code(s): R06.00 - DYSPNEA, UNSPECIFIED SNOMED Code(s): 718007737 (2) Neck swelling Current Visit: Yes Status: Acute Code(s): R22.1 - LOCALIZED SWELLING, MASS AND LUMP, NECK SNOMED Code(s): 486199564 (3) Postoperative edema Current Visit: Yes Status: Acute Code(s): R60.9 - EDEMA, UNSPECIFIED SNOMED Code(s): 803705920 Plan: 1. Continue ice as needed for swelling. 2. Vital signs are stable, O2 sat 98% today. 3. Appreciate input from medicine. 4. No surgical intervention planned. Will continue to follow the patient closely.
[2017-10-21 11:27] LABS: Glucose,Whole Blood 205 mg/dL (75-99)
--- NOTE | 2017-10-21 13:02 | P.CNPUL ---
History of Present Illness Consult date: 10/21/17 Reason for consult: dyspnea, other Chief complaint: Shortness of breath and change in voice History of present illness: Consult dated 10/21/2017 This is a 72-year-old female that were asked to see because of respiratory distress and possible stridor. The patient had a recent cervical surgery and apparently developed a lot of swelling and pain at the surgical site. She apparently presented to the emergency room with complaints of difficulty breathing. The patient was had had surgery was discharged very next day and then came back and one day later with difficulty breathing. Currently doing relatively well. Denies any significant shortness of breath. Does have some swelling. No stridor. Her voice has returned to normal. She looks very good. No chest pain or chest discomfort. No fever or chills. No cough or phlegm production. No nausea vomiting or diarrhea. The patient does have a history of chronic bronchial asthma hyperlipidemia hypertension DJD skin cancer arthritis and previous cholecystectomy heart catheterization, tonsillectomy tubal ligation cardiac catheterization cataract surgery and multiple skin cancer removals. Currently doing well. No respiratory distress whatsoever. No audible wheezing. No audible stridor. Review of Systems A 12 point review of system is positive for shortness of breath and difficulty breathing which is improved. Also there was a change in her voice which is also improved. Past Medical History Past Medical History: Asthma, Cancer, Hyperlipidemia, Hypertension, Musculoskeletal Disorder (Postoperative day #2 status post anterior cervical discectomy and fusion C34 C4 5 C5 6 C6 7 for her cervical stenosis and degenerative disc disease), Osteoarthritis (OA) Additional Past Medical History / Comment(s): Recent UTI finishing amoxicillin rx, skin cancer with removals, arthritis multiple joints, back and cervical pain. History of Any Multi-Drug Resistant Organisms: None Reported Past Surgical History: Cholecystectomy, Heart Catheterization, Tonsillectomy, Tubal Ligation Additional Past Surgical History / Comment(s): 2 cardiac caths without intervention, bilateral cataract removal with lens implants, skin cancer removals, cyst removed from neck, colonoscopy. Past Anesthesia/Blood Transfusion Reactions: No Reported Reaction Additional Past Anesthesia/Blood Transfusion Reaction / Comment(s): Pt has never received blood. Past Psychological History: No Psychological Hx Reported Smoking Status: Former smoker Past Alcohol Use History: Occasional Past Drug Use History: None Reported - Past Family History Brother(s) Family Medical History: Coronary Artery Disease (CAD) Additional Family Medical History / Comment(s): "bad heart" aneurysm Sister(s) Family Medical History: Cancer Additional Family Medical History / Comment(s): breast cancer Mother Family Medical History: Cancer, Coronary Artery Disease (CAD) Additional Family Medical History / Comment(s): Lymphoma, had a pacemaker. Mother at the age of 92yrs. Father Family Medical History: Coronary Artery Disease (CAD), Myocardial Infarction (CA ) Additional Family Medical History / Comment(s): Father of a CA at the age of 63 yrs. Medications and Allergies Home Medications Medication Instructions Recorded Confirmed Type Ipratropium-Albuterol Nebulize 3 ml INHALATION RT-QID PRN 05/18/15 10/20/17 History [Duoneb 0.5 mg-3 mg/3 ml Soln] Losartan Potassium 100 mg PO QAM 05/18/15 10/20/17 History Simvastatin [Zocor] 40 mg PO DAILY 05/18/15 10/20/17 History Albuterol Inhaler [Ventolin Hfa 2 puff INHALATION RT-QID PRN 04/10/17 10/20/17 History Inhaler] Aspirin EC [Ecotrin Low Dose] 81 mg PO DAILY 04/10/17 10/20/17 History Budesonide [Pulmicort] 0.5 mg INHALATION RT-BID 10/18/17 10/20/17 History Sulfamethox-Tmp 800-160Mg [Bactrim 1 tab PO Q12HR 10/18/17 10/20/17 History DS 800-160 mg] HYDROcodone/APAP 5-325MG [[place] 5] 1 tab PO Q6HR PRN 10/20/17 10/20/17 History Allergies Allergy/AdvReac Type Severity Reaction Status Date / Time adhesive Allergy blisters Verified 10/20/17 16:59 latex Allergy Rash/Hives Verified 10/20/17 19:14 Physical Exam Osteopathic Statement: *. No significant issues noted on an osteopathic structural exam other than those noted in the History and Physical/Consult. Vitals: Vital Signs Temp Pulse Pulse Resp BP BP Pulse Ox 10/21/17 11:41 87 10/21/17 11:31 86 10/21/17 07:57 84 10/21/17 07:44 84 10/21/17 07:00 98 F 84 14 148/68 98 10/21/17 04:01 90 10/21/17 03:46 90 10/21/17 00:40 98.4 F 84 16 131/61 97 10/20/17 20:15 92 10/20/17 19:48 92 97 10/20/17 19:47 98.4 F 92 18 132/72 97 10/20/17 17:01 98.0 F 98 15 122/76 99 10/20/17 15:46 97.2 F L 98 16 141/64 98 10/20/17 15:03 97.8 F 94 16 104/57 93 L 10/20/17 13:22 96 10/20/17 13:14 18 10/20/17 13:10 104 H Intake and Output 10/20/17 10/21/17 10/21/17 22:59 06:59 14:59 Other: # Voids 1 2 Weight 81.647 kg No acute distress, oriented 3. No evidence of respiratory distress HEENT examination is grossly unremarkable. Mucous membranes are moist. No oral lesions. Neck supple. Full range of motion. No adenopathy thyromegaly or neck vein distention. There is quite a bit of bruising and swelling of the neck particularly on the right side. No evidence of any stridor. Cardiovascular examination reveals regular rhythm rate. S1-S2 normal. No S3 or S4. No discernible murmur noted. Lungs reveal clear breath sounds. Her sounds are equal bilaterally. No adventitious lung sounds including wheezes rhonchi or crackles. Abdomen soft bowel sounds are heard. No masses or tenderness. Extremities are intact. No cyanosis clubbing or edema. Skin is without rash or lesion. Neurologic examination is brief but nonfocal. Results - Laboratory Findings CBC and BMP: 10/21/17 07:18 10/21/17 07:18 PT/INR, D-dimer PT 9.4 sec (9.0-12.0) 10/20/17 13:01 INR 0.9 (<1.2) 10/20/17 13:01 Abnormal lab findings: Abnormal Labs 10/20/17 10/20/17 10/20/17 13:01 13:01 14:47 WBC 11.9 H Neutrophils # 7.8 H Lymphocytes # APTT 18.3 L Sodium 132 L Glucose 109 H POC Glucose (mg/dL) Total Protein 5.5 L Albumin 3.1 L 10/20/17 10/21/17 10/21/17 20:55 07:07 07:18 WBC Neutrophils # Lymphocytes # 0.7 L APTT Sodium Glucose POC Glucose (mg/dL) 219 H 156 H Total Protein Albumin 10/21/17 10/21/17 07:18 11:26 WBC Neutrophils # Lymphocytes # APTT Sodium Glucose 155 H POC Glucose (mg/dL) 205 H Total Protein 6.0 L Albumin - Diagnostic Findings Chest x-ray: image reviewed (X-rays labs are reviewed. Computed tomography scan is also reviewed.) Assessment and Plan Assessment: Assessment Postoperative dyspnea as well as change in voice and possible stridor from recent cervical surgery. Patient is much improved with current time. The patient could be discharged in my opinion. History of asthma History of skin cancer Hyperlipidemia Hypertension DJD Plan: Plan dated 10/21/2017 From my perspective, the patient could be discharged. We'll allow the primary service to make that decision. She is feeling much better today. No stridor. No wheezes. She is postop day #3. Swelling is improved. No additional recommendations are made. Time with Patient: Greater than 30
[2017-10-21 14:40] LABS: Hemoglobin A1C 5.9 % (4.0-6.0)
[2017-10-21 18:05] LABS: Glucose,Whole Blood 165 mg/dL (75-99)
--- NOTE | 2017-10-21 19:47 | P.PN ---
Subjective Progress Note Date: 10/21/17 72 [address] of Dr[address] Avila's medical history of asthma, skin cancer, hyperlipidemia, hypertension. We sent anterior cervical decompression with discectomy and fusion at C3 4 C4 5 and C5 6 and C6 7 for severe cervical stenosis and disc degeneration with upper extremity radiculopathy and early myelopathy done on 10/17. Patient did have some difficulty swallowing with a feeling of lump in her throat day after surgery which improved on the day of the discharge. Patient states she was doing well until this morning when she started having shortness of breath associated with change in voice. She states it's difficult to take a deep breath. She does not know if the swelling has increased. She denies any fever but endorses chills. Heart rate 104, respiratory rate 18. Blood pressure 104/57 afebrile to touch. Labs are unremarkable. Patient evaluated at bedside did have significant swelling on the interior side of the neck concerning for possible fluid collection underneath the incision site. Stat CT chest and neck ordered. Dr. yaun consulted. Pulmonary consulted for further recommendation. Patient initiated on steroids. No concerning for infection at this point. A prerenal: Patient continued to improve, shortness breath has improved however she does have conversational dyspnea and dyspnea on exertion, patient remains on IV steroids, patient requested to stay 1 more day secondary to the dyspnea, patient has been cleared by both pulmonary and orthopedics, we'll going to keep one more day off steroids IV, and discharge in the morning, patient still requires chopped diet with intermittent dysphagia, unable to advance diet at this point patient continues to apply ice without any difficulties, no plans for any surgical intervention for localized small hematoma/seroma in the cervical neck region Objective - Vital Signs Vital signs: Vital Signs Temp 98.2 F 10/21/17 15:00 Pulse 89 10/21/17 15:57 Resp 15 10/21/17 15:22 BP 103/60 10/21/17 15:00 Pulse Ox 90 L 10/21/17 15:00 Intake & Output 10/21/17 10/21/17 10/22/17 06:59 18:59 06:59 Other: # Voids 2 2 - Constitutional General appearance: Present: cooperative, no acute distress, obese - EENT Eyes: Present: anicteric sclerae, EOMI, PERRLA, dentition normal ENT: Present: NA/AT, normal oropharynx - Neck Neck: Present: normal ROM - Respiratory Respiratory: bilateral: CTA, diminished, negative: dullness, rhonchi, prolonged expiration, prolonged inspiration - Cardiovascular Rhythm: irregularly irregular Heart sounds: normal: S1, S2 Abnormal Heart Sounds: Absent: systolic murmur, diastolic murmur, rub, S3 Gallop , S4 Gallop, click, other - Gastrointestinal General gastrointestinal: Present: normal bowel sounds, soft - Integumentary Integumentary: Present: normal, normal turgor - Musculoskeletal Musculoskeletal: Present: gait normal, strength equal bilaterally - Psychiatric Psychiatric: Present: A&O x's 3, appropriate affect, intact judgment & insight - Labs CBC & Chem 7: 10/21/17 07:18 10/21/17 07:18 Labs: Abnormal Lab Results - Last 24 Hours (Table) 10/20/17 10/21/17 10/21/17 Range/Units 20:55 07:07 07:18 Lymphocytes # 0.7 L (1.0-4.8) k/uL Glucose (74-99) mg/dL POC Glucose (mg/dL) 219 H 156 H (75-99) mg/dL Total Protein (6.3-8.2) g/dL 10/21/17 10/21/17 10/21/17 Range/Units 07:18 11:26 18:01 Lymphocytes # (1.0-4.8) k/uL Glucose 155 H (74-99) mg/dL POC Glucose (mg/dL) 205 H 165 H (75-99) mg/dL Total Protein 6.0 L (6.3-8.2) g/dL Assessment and Plan Plan: Plan: 1. #1 acute shortness of breath associated with cough production likely secondary to laryngeal compression. No wheezing on examination, unlikely to be bronchitis Chest x-ray suggestive of interstitial fibrosis. CT chest neck ordered stat. Dr. Yuan to be notified of patient's presence in the ER. Continue Solu-Medrol 60 every 6. Withhold antibiotic as there is no concern of infection at this point. 2. Severe Cervical stenosis with radiculopathy status post anterior cervical decompression and discectomy and fusion with Dr. Yuan. Continue current pain management. Restriction on weight . Concern for underlying fluid collection compressing on the larynx CT neck o reviewed results shows subglottic area normal, epiglotti c region normal, no evidence of pharyngeal mass and large paratracheal lymph node up to 1 cm, question. She'll infiltrate both lungs, no pleural effusion, small superior mediastinal fluid density right side extending up with somebody blurs several leg glands around the parotid gland with air bubbles as expected from her recent cervical fusion postsurgical changes with seroma and hematoma 3. History of moderate persistent asthma currently stable. Continue albuterol inhaler and DuoNeb treatments, Pulmicort. 4. Moderate pulmonary fibrosis, interstitial lung disease. 5. Hypertension. Continue losartan 6. Generalized osteoarthritis. 7. Hyperlipidemia. Continue Zocor 40 mg daily 8. Recent treatment for urinary tract infection. Patient to complete course of Bactrim. 9. Disposition likely pending clinical improvement. 10 cord status full code 11 GI prophylaxis with Pepcid 20 mg IV daily 12 DVT prophylaxis with Lovenox 24 hours Discharge planning, home in the morning with oral tapering prednisone short course secondary to recent cervical surgery, nebulized Pulmicort continue nebulized albuterol to continue
[2017-10-21 21:12] LABS: Glucose,Whole Blood 194 mg/dL (75-99)
[2017-10-21] MEDS: CLOTRIMAZOLE TROCHE 10 MG TROCHE MUCOUS MEM SCH (21:28)
[2017-10-22] MEDS: HYDROcodone/APAP 5-325MG 1 EACH TAB PO PRN ×3 (00:03→13:07)
[2017-10-22] MEDS: methylPREDNISolone SOD SUCCI 125 MG/2 ML VIAL IV SCH ×3 (00:08→11:39)
[2017-10-22] MEDS: CLOTRIMAZOLE TROCHE 10 MG TROCHE MUCOUS MEM SCH ×3 (00:08→11:39)
[2017-10-22 06:55] LABS: Glucose,Whole Blood 164 mg/dL (75-99)
[2017-10-22 07:03] VITALS: BP 153/81; RESP 14; TEMP 97.8
[2017-10-22] MEDS: INSULIN ASPART 100 UNIT/ML 1 ML 10 ML VIAL SQ SCH ×2 (07:06→11:54)
[2017-10-22] MEDS: BUDESONIDE 0.5 MG/2 ML NEBU INHALATION SCH (07:28)
[2017-10-22] MEDS: IPRATROPIUM-ALBUTEROL 3 ML NEB INHALATION SCH ×3 (07:28→14:57)
[2017-10-22 07:45] LABS: Basophils % (A) 0 %; Eosinophils % (A) 0 %; HCT 38.3 % (34.0-46.0); HGB 12.4 gm/dL (11.4-16.0); Lymphocytes # (A) 1.3 k/uL (1.0-4.8); Lymphocytes % (A) 9 %; MCH 28.8 pg (25.0-35.0); MCHC 32.3 g/dL (31.0-37.0); MCV 89.1 fL (80.0-100.0); Mean Platelet Volume 7.6; Monocytes # (A) 0.5 k/uL (0-1.0); Monocytes % (A) 4 %; Neutrophils # (A) 12.5 k/uL (1.3-7.7); Neutrophils % (A) 87 %; Platelet Count 284 k/uL (150-450); RBC 4.29 m/uL (3.80-5.40); RDW 13.5 % (11.5-15.5); WBC 14.5 k/uL (3.8-10.6)
[2017-10-22 07:52] LABS: ALT 28 U/L (9-52); AST 18 U/L (14-36); Albumin 3.7 g/dL (3.5-5.0); Alkaline Phosphatase 75 U/L (38-126); Anion Gap 12 mmol/L; Blood Urea Nitrogen 18 mg/dL (7-17); Calcium 9.8 mg/dL (8.4-10.2); Carbon Dioxide 28 mmol/L (22-30); Chloride 97 mmol/L (98-107); Glucose 151 mg/dL (74-99); Potassium 4.7 mmol/L (3.5-5.1); Sodium 137 mmol/L (137-145); Total Bilirubin 0.5 mg/dL (0.2-1.3); Total Protein 6.4 g/dL (6.3-8.2)
[2017-10-22] MEDS: ENOXAPARIN 40 MG/0.4 ML SYRINGE SQ SCH (08:38)
[2017-10-22] MEDS: SULFAMETHOX-TMP 800-160MG 1 EACH TAB PO SCH (08:38)
[2017-10-22] MEDS: ATORVASTATIN 20 MG TAB PO SCH (08:38)
[2017-10-22] MEDS: LOSARTAN 50 MG TAB PO SCH (08:38)
[2017-10-22] MEDS: IPRATROPIUM-ALBUTEROL 3 ML NEB INHALATION PRN (08:46)
[2017-10-22] MEDS ORDERED: FAMOTIDINE 20 MG TAB PO SCH (09:00)
--- NOTE | 2017-10-22 09:39 | P.PN ---
Subjective Progress Note Date: 10/22/17 This is a 72-year-old female who is status post anterior cervical discectomy with fusion at C3 4, C4 5, C5 6 and C6 7. This is postoperative day #4. Patient reports that her breathing improved after breathing treatments. Patient states she has not noticed any increased swelling around her cervical incision. Patient denies any new complaints today. Objective - Vital Signs Vital signs: Vital Signs Temp 97.8 F 10/22/17 07:00 Pulse 110 H 10/22/17 08:55 Resp 14 10/22/17 07:00 BP 153/81 10/22/17 07:00 Pulse Ox 95 10/22/17 07:00 Intake & Output 10/21/17 10/22/17 10/22/17 18:59 06:59 18:59 Intake Total 240 Balance 240 Intake: Oral 240 Other: # Voids 2 2 # Bowel Movements 1 - Exam On exam patient is alert and oriented 3 and in no acute distress. There is ecchymosis around the cervical incision. There is no drainage. Incision is clean, dry and intact. Soft tissue around the cervical incision is soft. Patient has good range of motion of bilateral upper extremities. Patient has no difficulty carrying on conversation. - Labs CBC & Chem 7: 10/22/17 06:57 10/22/17 06:57 Labs: Abnormal Lab Results - Last 24 Hours (Table) 10/21/17 10/21/17 10/21/17 Range/Units 11:26 18:01 21:10 WBC (3.8-10.6) k/uL Neutrophils # (1.3-7.7) k/uL Chloride (98-107) mmol/L BUN (7-17) mg/dL Glucose (74-99) mg/dL POC Glucose (mg/dL) 205 H 165 H 194 H (75-99) mg/dL 10/22/17 10/22/17 10/22/17 Range/Units 06:51 06:57 06:57 WBC 14.5 H (3.8-10.6) k/uL Neutrophils # 12.5 H (1.3-7.7) k/uL Chloride 97 L (98-107) mmol/L BUN 18 H (7-17) mg/dL Glucose 151 H (74-99) mg/dL POC Glucose (mg/dL) 164 H (75-99) mg/dL Assessment and Plan (1) Dyspnea Current Visit: Yes Status: Acute Code(s): R06.00 - DYSPNEA, UNSPECIFIED SNOMED Code(s): 927499837 (2) Neck swelling Current Visit: Yes Status: Acute Code(s): R22.1 - LOCALIZED SWELLING, MASS AND LUMP, NECK SNOMED Code(s): 161073564 (3) Postoperative edema Current Visit: Yes Status: Acute Code(s): R60.9 - EDEMA, UNSPECIFIED SNOMED Code(s): 368690102 Plan: 1. Continue ice as needed for swelling. 2. Appreciate input from medicine. 3. No surgical intervention planned. Will continue to follow the patient closely.
[2017-10-22 11:11] VITALS: PULSE 98
[2017-10-22 11:44] LABS: Glucose,Whole Blood 125 mg/dL (75-99)
--- NOTE | 2017-10-22 14:11 | P.PN ---
Subjective Progress Note Date: 10/22/17 Principal diagnosis: Shortness of breath and neck swelling Progress note dated 10/22/2017 72-year-old female who is status post op day #4 for anterior cervical discectomy. She was discharged from the hospital and readmitted with some swelling of the neck area. At that time she was also having some difficulty swallowing or change in her voice and some mild difficulty in breathing. I saw yesterday in consultation. She feeling much better today. Much less short of breath. Denies any difficulty breathing. Her voice is back to normal. Never had any stridor. The swelling is been primarily treated with ice therapy. Other than that, she has a history of asthma skin cancer hyperlipidemia hypertension and DJD. Objective - Vital Signs Vital signs: Vital Signs Temp 97.8 F 10/22/17 07:00 Pulse 98 10/22/17 11:10 Resp 14 10/22/17 07:00 BP 153/81 10/22/17 07:00 Pulse Ox 95 10/22/17 07:00 Intake & Output 10/21/17 10/22/17 10/22/17 18:59 06:59 18:59 Intake Total 240 Balance 240 Intake: Oral 240 Other: # Voids 2 2 # Bowel Movements 1 - Exam No acute distress, oriented 3. HEENT examination is grossly unremarkable. Mucous membranes are moist. No oral lesions. Neck supple. There is quite a bit of bruising and swelling to the anterior neck area particular on the right side. It is improved from yesterday. There is no stridor. Cardiovascular examination reveals regular rhythm rate. S1-S2 normal. No S3 or S4. No discernible murmur noted. Lungs reveal clear breath sounds. Her sounds are equal bilaterally. No adventitious lung sounds including wheezes rhonchi or crackles. Abdomen soft bowel sounds are heard. No masses or tenderness. Extremities are intact. No cyanosis clubbing or edema. Skin is without rash or lesion. Neurologic examination is brief but nonfocal. - Labs CBC & Chem 7: 10/22/17 06:57 10/22/17 06:57 Labs: Abnormal Lab Results - Last 24 Hours (Table) 10/21/17 10/21/17 10/22/17 Range/Units 18:01 21:10 06:51 WBC (3.8-10.6) k/uL Neutrophils # (1.3-7.7) k/uL Chloride (98-107) mmol/L BUN (7-17) mg/dL Glucose (74-99) mg/dL POC Glucose (mg/dL) 165 H 194 H 164 H (75-99) mg/dL 10/22/17 10/22/17 10/22/17 Range/Units 06:57 06:57 11:41 WBC 14.5 H (3.8-10.6) k/uL Neutrophils # 12.5 H (1.3-7.7) k/uL Chloride 97 L (98-107) mmol/L BUN 18 H (7-17) mg/dL Glucose 151 H (74-99) mg/dL POC Glucose (mg/dL) 125 H (75-99) mg/dL Assessment and Plan Assessment: Assessment Postoperative dyspnea as well as change in voice and possible stridor from recent cervical surgery. Patient is much improved with current time. The patient could be discharged in my opinion. Postop day #4, status post anterior cervical discectomy History of asthma History of skin cancer Hyperlipidemia Hypertension DJD Plan: Plan dated 10/21/2017 From my perspective, the patient could be discharged. We'll allow the primary service to make that decision. She is feeling much better today. No stridor. No wheezes. She is postop day #3. Swelling is improved. No additional recommendations are made. Plan dated 10/22/2017 The patient is doing well. The lung status is stable. The breathing is back to normal. There is evidence of any stridor since I started seeing her. This is not completely back to normal. She is having still quite a bit difficulty in swallowing. We'll allow the primary service to discuss decide about discharge. Additional recommendations are made. We'll continue to follow. Time with Patient: Less than 30
== END 2017-10-22 15:32 | disposition home or self-care (01) | DRG 920 ==
LOC: EC 12:22 → 3SUR 14:53 → OBSVTOIN 10-21 18:16
PROVIDERS: ADMIT Internal Medicine; ATTEND Internal Medicine
DX: M96.840 Postprocedural hematoma of a musculoskeletal structure following a musculoskeletal system procedure (principal); N39.0 Urinary tract infection, site not specified; R06.00 Dyspnea, unspecified; J39.8 Other specified diseases of upper respiratory tract; J84.10 Pulmonary fibrosis, unspecified; E66.9 Obesity, unspecified; M96.842 Postprocedural seroma of a musculoskeletal structure following a musculoskeletal system procedure; E78.5 Hyperlipidemia, unspecified; I10 Essential (primary) hypertension; J45.40 Moderate persistent asthma, uncomplicated; M15.9 Polyosteoarthritis, unspecified; R13.10 Dysphagia, unspecified; Z79.82 Long term (current) use of aspirin; Z79.899 Other long term (current) drug therapy; Z91.048 Other nonmedicinal substance allergy status; Z90.49 Acquired absence of other specified parts of digestive tract; Z87.891 Personal history of nicotine dependence; Z85.828 Personal history of other malignant neoplasm of skin; Z98.51 Tubal ligation status; Z98.42 Cataract extraction status, left eye; Z98.41 Cataract extraction status, right eye; Z96.1 Presence of intraocular lens; Z98.1 Arthrodesis status; Z68.35 Body mass index [BMI] 35.0-35.9, adult; Z80.3 Family history of malignant neoplasm of breast; Z80.7 Family history of other malignant neoplasms of lymphoid, hematopoietic and related tissues; Z82.49 Family history of ischemic heart disease and other diseases of the circulatory system; Y83.4 Other reconstructive surgery as the cause of abnormal reaction of the patient, or of later complication, without mention of misadventure at the time of the procedure; Y92.239 Unspecified place in hospital as the place of occurrence of the external cause; Z79.51 Long term (current) use of inhaled steroids
CPT/HCPCS: 36415; 70491; 71046; 71260; 80053; 82550; 82553; 83036; 83735; 83880; 84484; 85025; 85610; 85730; 93005; 94640; 94760; 96361; 96374; 96375; 99285

== ENCOUNTER 2017-12-05 20:11 | Emergency (ER) | payer MEDICARE, BC ==
[2017-12-05 20:30] VITALS: BP 97/68; PULSE 84; RESP 18; TEMP 98.2
--- NOTE | 2017-12-05 21:18 | ED ---
Skin/Abscess/FB HPI - General Chief complaint: Skin/Abscess/Foreign Body Stated complaint: poss infection in leg Time Seen by Provider: 12/05/17 20:56 Source: patient, RN notes reviewed Mode of arrival: ambulatory Limitations: no limitations - History of Present Illness Initial comments: This is a 72-year-old female who presents to the emergency department with chief complaint of possible leg infection. Patient states that 2 or 3 days ago she was working outside. She states that a stick left an abrasion on her left vieira. She states that she covered it with a bandage and when she took the bandage off she ripped a piece of her skin off. She states that there is now some redness surrounding the wound and she is concerned that it may be infected. She states she has been cleaning with hydrogen peroxide and covering it with Neosporin. Denies any other injuries. Denies fevers or chills, chest pain or shortness breath, abdominal pain, nausea or vomiting. - Related Data Home Medications Medication Instructions Recorded Confirmed Ipratropium-Albuterol Nebulize 3 ml INHALATION RT-QID PRN 05/18/15 12/05/17 [Duoneb 0.5 mg-3 mg/3 ml Soln] Losartan Potassium 100 mg PO QAM 05/18/15 12/05/17 Simvastatin [Zocor] 40 mg PO DAILY 05/18/15 12/05/17 Aspirin EC [Ecotrin Low Dose] 81 mg PO DAILY 04/10/17 12/05/17 Budesonide [Pulmicort] 0.5 mg INHALATION RT-BID 10/18/17 12/05/17 Ibuprofen [Motrin] 800 mg PO TID PRN 12/05/17 12/05/17 Previous Rx's Medication Instructions Recorded Cephalexin [Keflex] 500 mg PO Q12HR #20 cap 12/05/17 Allergies Allergy/AdvReac Type Severity Reaction Status Date / Time adhesive Allergy blisters Verified 12/05/17 20:55 latex Allergy Rash/Hives Verified 12/05/17 20:55 Review of Systems ROS Statement: Those systems with pertinent positive or pertinent negative responses have been documented in the HPI. ROS Other: All systems not noted in ROS Statement are negative. Past Medical History Past Medical History: Asthma, Cancer, Hyperlipidemia, Hypertension, Musculoskeletal Disorder, Osteoarthritis (OA) Additional Past Medical History / Comment(s): Recent UTI finishing amoxicillin rx, skin cancer with removals, arthritis multiple joints, back and cervical pain. History of Any Multi-Drug Resistant Organisms: None Reported Past Surgical History: Cholecystectomy, Heart Catheterization, Tonsillectomy, Tubal Ligation Additional Past Surgical History / Comment(s): 2 cardiac caths without intervention, bilateral cataract removal with lens implants, skin cancer removals, cyst removed from neck, colonoscopy. Past Anesthesia/Blood Transfusion Reactions: No Reported Reaction Additional Past Anesthesia/Blood Transfusion Reaction / Comment(s): Pt has never received blood. Past Psychological History: No Psychological Hx Reported Smoking Status: Former smoker Past Alcohol Use History: Occasional Past Drug Use History: None Reported - Past Family History Brother(s) Family Medical History: Coronary Artery Disease (CAD) Additional Family Medical History / Comment(s): "bad heart" aneurysm Sister(s) Family Medical History: Cancer Additional Family Medical History / Comment(s): breast cancer Mother Family Medical History: Cancer, Coronary Artery Disease (CAD) Additional Family Medical History / Comment(s): Lymphoma, had a pacemaker. Mother at the age of 92yrs. Father Family Medical History: Coronary Artery Disease (CAD), Myocardial Infarction (NV ) Additional Family Medical History / Comment(s): Father of a NV at the age of 63 yrs. General Exam - General Exam Comments Initial Comments: General: Awake and alert, well-developed; in no apparent distress. Resting comfortably on ED stretcher. is at bedside. HEENT: Head atraumatic, normocephalic. Pupils are equal, round and reactive to light. Extraocular movements intact. Oropharynx moist without erythema or exudate. Neck: Supple. Normal ROM. Cardiovascular: Regular rate and rhythm. No murmurs, rubs or gallops. Chest symmetrical. Respiratory: Lungs clear to auscultation bilaterally. No wheezes, rales or rhonchi. Normal respiratory effort with no use of accessory muscles. Musculoskeletal: Normal ROM, no tenderness bilateral upper and lower extremities. Ambulating with a cane. Skin: [place], warm and dry. Approximately 1.0 cm circular abrasion to the distal left vieira with surrounding erythema and tenderness. No significant swelling. Sensation is intact. Pedal pulses are 2+ equal and palpable bilaterally. Neurological: Alert and oriented x3. CN II-XII grossly intact. Speech is fluent and answers are appropriate. No focal neuro deficits. Psychiatric: Normal mood and affect. No overt signs of depression or anxiety noted. Limitations: no limitations Course Vital Signs 12/05/17 20:29 Temperature 98.2 F Pulse Rate 84 Respiratory 18 Rate Blood Pressure 97/68 O2 Sat by Pulse 97 Oximetry Medical Decision Making - Medical Decision Making This is a 72-year-old female who presents to the emergency department with chief complaint of possible leg infection. Patient sustained an abrasion to her left vieira 2-3 days ago. Since that time she has noticed some redness and tenderness surrounding the area. On physical examination, there is an abrasion to the left vieira with surrounding erythema and tenderness. Patient will be treated for cellulitis with Keflex. Patient will be made up-to-date with tetanus vaccination. Patient denies a history of MRSA. She is neurovascularly intact, vital signs are stable and she is in no acute distress. She will be discharged home at this time. All questions answered. She is in agreement and voices understanding. Disposition Clinical Impression: Cellulitis Disposition: HOME SELF-CARE Condition: Good Instructions: Cellulitis (ED) Additional Instructions: Please take medications as prescribed. Please follow up with primary care provider within 1-2 days. Return to emergency department if symptoms should worsen or any concerns arise. Prescriptions: Cephalexin [Keflex] 500 mg PO Q12HR #20 cap Is patient prescribed a controlled substance at d/c from ED?: No Referrals: Rich Avila MD [Primary Care Provider] - 1-2 days Time of Disposition: 21:27
[2017-12-05] MEDS ORDERED: DIPH,PERTUS(ACELL)TETVAC-LF 0.5 ML VIAL IM ONE (21:27)
== END 2017-12-05 21:46 | disposition home or self-care (01) ==
LOC: EC 20:11
DX: L03.116 Cellulitis of left lower limb (principal); J45.909 Unspecified asthma, uncomplicated; E78.5 Hyperlipidemia, unspecified; I10 Essential (primary) hypertension; Z85.828 Personal history of other malignant neoplasm of skin; Z95.818 Presence of other cardiac implants and grafts; Z87.891 Personal history of nicotine dependence; Z79.82 Long term (current) use of aspirin; Z79.51 Long term (current) use of inhaled steroids; Z79.899 Other long term (current) drug therapy; Z91.048 Other nonmedicinal substance allergy status; Z91.040 Latex allergy status; Z23 Encounter for immunization
CPT/HCPCS: 90471; 90715; 99283

== ENCOUNTER → 2020-07-23 | Outpatient (CLI) | payer MEDICARE ==
[2020-07-23 09:16] LABS: HCT 40.3 % (34.0-46.0); HGB 13.6 gm/dL (11.4-16.0); MCH 30.7 pg (25.0-35.0); MCHC 33.8 g/dL (31.0-37.0); MCV 90.7 fL (80.0-100.0); Platelet Count 206 k/uL (150-450); RBC 4.44 m/uL (3.80-5.40); RDW 13.2 % (11.5-15.5); WBC 7.4 k/uL (3.8-10.6)
[2020-07-23 09:39] LABS: African American GFR (CKD) >90 (>60 ml/min/1.73 sqM); Anion Gap 4 mmol/L; Blood Urea Nitrogen 15 mg/dL (7-17); Carbon Dioxide 32 mmol/L (22-30); Chloride 94 mmol/L (98-107); Non-African American GFR(CKD) 84 (>60 ml/min/1.73 sqM); Potassium 4.3 mmol/L (3.5-5.1); Sodium 130 mmol/L (137-145)
== END | disposition home or self-care (01) ==
LOC: LABPAT 08:41
PROVIDERS: ATTEND Internal Medicine Interventional Cardiology
DX: Z01.818 Encounter for other preprocedural examination (principal); I25.10 Atherosclerotic heart disease of native coronary artery without angina pectoris
CPT/HCPCS: 36415; 80051; 82565; 84520; 85027

== ENCOUNTER 2020-07-27 07:35 | Day surgery (SDC) | payer MEDICARE ==
[2020-07-22 13:07] VITALS: BMI 35.2
[~2020-07-27 07:35] MED LIST changes: +ALPRAZolam 0.25 MG TAB PO PRN; +ALPRAZolam 0.5 MG TAB PO PRN; +ASPIRIN 325 MG TAB PO STA; +ATORVASTATIN 80 MG TAB PO STA; -BACITRACIN 50,000 UNIT, POLYMYXIN B 500,000 UNIT in SODIUM CHLORIDE 0.9% IRRIGATIO 1,00... IRRIGATION ONE; -DEXAMETHASONE SOD PHOSPHATE 10 MG/ML 1 ML VIAL IV ONE; -HYDROmorphone 0.5 MG/0.5 ML SYRINGE IVP PRN; -MORPHINE SULFATE 4 MG/ML SYRINGE IV PRN; +NITROGLYCERIN SL TABS 0.4 MG TAB SUBLINGUAL PRN; -ONDANSETRON 4 MG/2 ML VIAL IVP ONE; +SODIUM CHLORIDE 0.9% 1,000 ML in EMPTY BAG 1 BAG IV ONE; -ceFAZolin IN SWFI 2 GM/20 ML SYRINGE IVP ONE
[2020-07-27] MEDS ORDERED: SODIUM CHLORIDE 0.9% 1,000 ML IV ONE (07:58)
[2020-07-27 08:25] VITALS: RESP 16; TEMP 97.6
[2020-07-27] MEDS ORDERED: LIDOCAINE 1% INJ 10MG/ML (20 ML MDV) ONE (08:43)
[2020-07-27] MEDS ORDERED: HEPARIN SODIUM 1,000 UN/ML (10ML VL) ONE (08:43)
[2020-07-27] MEDS ORDERED: fentaNYL (PF) 50 MCG/ML 2 ML AMP ONE (08:43)
[2020-07-27] MEDS ORDERED: VERAPAMIL 2.5 MG/ML 2 ML AMP ONE (08:43)
[2020-07-27] MEDS ORDERED: fentaNYL (PF) 50 MCG/ML 2 ML AMP IV ONE (09:22)
[2020-07-27] MEDS ORDERED: LIDOCAINE 1% INJ 10MG/ML (20 ML MDV) SQ ONE (09:37)
[2020-07-27] MEDS ORDERED: MIDAZOLAM 2 MG/2 ML VIAL IV ONE (09:38)
[2020-07-27] MEDS ORDERED: VERAPAMIL SYRINGE (5 MG/10 ML) INTRAARTER ONE (09:40)
[2020-07-27] MEDS: HEPARIN SODIUM 1,000 UN/ML (10ML VL) IV ONE ×2 (09:54→10:06)
[2020-07-27 10:11] LABS: O2 Sat Blood Gas 97.2 %
[2020-07-27 10:11] LABS: O2 Sat Blood Gas 70.2 %
[2020-07-27] MEDS ORDERED: NITROGLYCERIN 1000MCG/10ML SYRINGE INTRACORON ONE (10:11)
[2020-07-27 10:12] LABS: O2 Sat Blood Gas 72.7 %
[2020-07-27] MEDS ORDERED: ADENOSINE 90 MG in SODIUM CHLORIDE 0.9% 60 ML IVP ONE (10:20)
[2020-07-27] MEDS ORDERED: IOPAMIDOL-370 125ML BTL INJ ONE (10:32)
[2020-07-27] MEDS ORDERED: RX INFO: IV CONTRAST WAS GIVEN 1 EACH MISC MISCELLANE PRN (10:59)
[2020-07-27] MEDS ORDERED: SODIUM CHLORIDE 0.9% 1,000 ML IV SCH (11:00)
--- NOTE | 2020-07-27 12:17 | CC ---
CARDIAC CATHETERIZATION REPORT Mrs. Alvarenga is a 75-year-old female with a known history of hypertension, hyperlipidemia, history of coronary artery disease who has been followed by Dr. Sloan and has been complaining of episode of chest discomfort and had an abnormal myocardial perfusion imaging with the anterior wall reversible defect. In view of that, recommendation regarding cardiac catheterization, the procedure as well as the risks and the complications were discussed with the patient who is in full understanding and agreement. 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 Using Xylocaine anesthesia and Seldinger technique, a 6-Haitian sheath was introduced in the right radial artery. Subsequently using a guidewire exchange technique, the venous catheter in the right basilic vein was exchanged to a 6-Haitian sheath, right heart catheterization was performed using [place] catheter, multiple pressure and samples were obtained. Cardiac output by thermodilution was calculated. Following that, a selective right and left coronary angiography performed using 5-Haitian 3.5 bend right Vinh catheter. Multiple views of the coronary artery including hemiaxial views were obtained. Following that a 6-Haitian FL3.5 guiding catheter introduced in the system and an FFR measurement and IVUS were performed. Following that, a 5-Haitian tight pigtail catheter was introduced in the left ventricle and pressures were calculated. Following that, catheter and sheath were removed. Hemostasis was obtained with deployment of a TR band and compression of the right brachial area. There was no immediate complication. The patient was returned to her room in stable condition. Of note, the patient received 5000 units of intravenous heparin as well as intra-arterial verapamil. HEMODYNAMICS: Right atrial saturation of 70%, pulmonary artery saturation 72%, arterial saturation 97%. Cardiac output by Shivani 5.3 L/minute and by thermal 5.1 L/minute. Pulmonary artery systolic pressure of 20 with a diastolic of 4 with a mean of 8 mmHg. Pulmonary capillary wedge pressure A-wave of 2, V-wave of 3 with a mean of 3 mmHg. Right ventricular systolic pressure of 22 with an end-diastolic of 1. Right atrial A-wave of 4, V-wave 4 with a mean of 4 mmHg. There was no gradient across the aortic valve. The left ventricular end-diastolic pressure was 12 to 16 mmHg. CORONARIES: FLUOROSCOPY: There was calcification involving the left main, LAD and the right coronary artery. LEFT MAIN: This is a large-sized vessel, bifurcating into left circumflex, left anterior descending artery. Left main coronary artery has a 40% to 50% stenosis at the distal segment at the bifurcation. The rest of the vessel has no high-grade stenosis. LEFT ANTERIOR DESCENDING ARTERY: This is a large-sized vessel reaching to the apex with a wraparound apex segment. The left anterior descending artery in mid segment has a 40% plaque. The rest of the vessel has no high-grade stenosis. LEFT CIRCUMFLEX: This is a nondominant vessel giving rise to 2 obtuse marginal branches. The first one is large in caliber. The left circumflex as well as branches have no evidence of obstructive coronary artery disease. RIGHT CORONARY ARTERY: This is a large dominant vessel giving rise to a large of PLV. The right coronary artery is tortuous in mid distal segment that has about a 30% plaque proximally. IFR: The iFR was measured at 93%. Her FFR was 87% after infusion of adenosine per protocol. IVUS was performed on the left main and showed significant calcification with a minimal area of 2.6 millimeter square. RESULTS: 1. Calcified coronary artery. 2. Significant distal left main by IVUS. 3. Mild to moderate disease in the left anterior descending artery and the right coronary artery. 4. Normal right-sided pressure. RECOMMENDATION: In view of finding anatomy, I recommend proceeding with evaluation for possible coronary artery bypass grafting. Those findings and recommendations were discussed with the patient and her family and they are in full understanding and agreement. Duration of sedation is 58 minutes. MMODL / IJN: [id number] /
--- NOTE | 2020-07-27 12:22 | LTR ---
July 27, 2020 Re: Becky Bensonon Dear Dr. Avila: I had the opportunity to perform cardiac catheterization on Mrs. Alvarenga at [facility] on the 27 of July and a full copy of procedure note will be forwarded to you. In brief, she was found to have calcified coronary arteries with moderate significant disease in the distal left main that by intravascular ultrasound was a significant stenosis. In view of that, I have recommend proceeding with evaluation for possible coronary artery bypass grafting. I will keep you updated on her progress. Thank you again for allowing me the opportunity to participate in her care. Please feel free to call for any questions. Sincerely yours, Miguel A Anderson MD MMANAL / TRANN: [id number] /
--- NOTE | 2020-07-27 14:04 | P.GSCN ---
History of Present Illness Consult date: 07/27/20 Reason for Consult: coronary artery disease with left main disease Requesting physician: Miguel A Anderson History of present illness: This is a 75 year old female who follows on an outpatient basis with Dr. Rich Avila for primary care and Dr. Sloan for cardiology. She has a previous medical history of pulmonary fibrosis, asthma, hypertension, hyperlipidemia, obesity, osteoarthritis, and cervical stenosis post anterior cervical decompression, discectomy and fusion. She has been experiencing increasing shortness of breath over the previous 6 weeks with minimal activity as well as occasionally at rest. She denies any chest pain but does complain of occasional chest heaviness which has improved since initiation of nitrates. She also complained of lower extremity edema which resolved with diuresis. She underwent stress testing which demonstrated anterior wall ischemia with small reversable defect. Transthoracic echo was also completed which showed EF 55%, mild AI, mild MR, mild TR. Ms. Alvarenga was recommended to undergo elective heart catheterization which was completed today and which demonstrated left main stenosis with IVUS calculation 2.6 mm square, 40% mid LAD stenosis, and 30% mid RCA stenosis. PA pressure 20/4 with mean 8mmHg. Due to these findings consultation was placed to Dr. Sethi from cardiac surgery for revascularization recommendations. Review of Systems ROS was completed and was negative except as noted - Cardiovascular Reports as per HPI, Reports decreased exercise tolerance, Reports dyspnea on exertion, Reports leg edema, Reports shortness of breath Past Medical History Past Medical History: Asthma, Coronary Artery Disease (CAD), Cancer, Chest Pain / Angina, CVA/TIA, Hyperlipidemia, Hypertension, Musculoskeletal Disorder, Osteoarthritis (OA) Additional Past Medical History / Comment(s): skin cancer with removals, arthritis multiple joints, back and cervical pain, ?TIA in her teens-shows up on scan?, pulmonary fibrosis History of Any Multi-Drug Resistant Organisms: None Reported Past Surgical History: Cholecystectomy, Heart Catheterization, Tonsillectomy, Tubal Ligation Additional Past Surgical History / Comment(s): 2 cardiac caths without intervention, bilateral cataract removal with lens implants, skin cancer removals, cyst removed from neck, colonoscopy, cervical fusion Past Anesthesia/Blood Transfusion Reactions: No Reported Reaction Additional Past Anesthesia/Blood Transfusion Reaction / Comm: Pt has never received blood. Past Psychological History: No Psychological Hx Reported Smoking Status: Former smoker Past Alcohol Use History: None Reported Past Drug Use History: None Reported - Past Family History Brother(s) Family Medical History: Coronary Artery Disease (CAD) Additional Family Medical History / Comment(s): "bad heart" aneurysm Sister(s) Family Medical History: Cancer Additional Family Medical History / Comment(s): breast cancer Mother Family Medical History: Cancer, Coronary Artery Disease (CAD) Additional Family Medical History / Comment(s): Lymphoma, had a pacemaker. Mother at the age of 92yrs. Father Family Medical History: Coronary Artery Disease (CAD), Myocardial Infarction ([place]) Additional Family Medical History / Comment(s): Father of a [place] at the age of 63 yrs. Medications and Allergies Home Medications Medication Instructions Recorded Confirmed Type Ipratropium-Albuterol Nebulize 3 ml INHALATION RT-QID PRN 05/18/15 07/27/20 History [Duoneb 0.5 mg-3 mg/3 ml Soln] Losartan Potassium 100 mg PO QAM 05/18/15 07/27/20 History Simvastatin [Zocor] 40 mg PO DAILY 05/18/15 07/27/20 History Aspirin EC [Ecotrin Low Dose] 81 mg PO DAILY 04/10/17 07/27/20 History Ibuprofen [Motrin] 800 mg PO TID PRN 12/05/17 07/27/20 History Nitroglycerin Sl Tabs [Nitrostat] 0.5 tab SUBLINGUAL Q5M PRN 07/22/20 07/27/20 History Acetaminophen [Tylenol] 1,000 mg PO Q4-6H PRN 07/27/20 07/27/20 History Metoprolol Tartrate [Lopressor] 12.5 mg PO BID #60 dose 07/27/20 Rx hydroCHLOROthiazide 25 mg PO DAILY 07/27/20 07/27/20 History Allergies Allergy/AdvReac Type Severity Reaction Status Date / Time adhesive Allergy blisters Verified 07/22/20 09:55 latex Allergy Rash/Hives Verified 07/22/20 09:55 Surgical - Exam Vital Signs Temp Pulse Resp BP Pulse Ox 97.6 F 76 16 157/69 98 07/27/20 08:01 07/27/20 08:01 07/27/20 08:01 07/27/20 08:01 07/27/20 08:01 - General well developed, well nourished, no distress, no pain, obese - Eyes PERRL, normal ocular movement - ENT no hearing loss - Neck no masses, no bruits, trachea midline - Respiratory Lungs clear to auscultation. Respirations even, non-labored. Currently on room air with oxygen saturation 96%. No chest wall deformities. No clubbing or cyanosis - Cardiovascular S1/S2 present. Regular rate, rhythm, sinus rhythm on telemetry with heart rate in the 80s. Palpable peripheral pulses bilaterally. No edema present - Abdomen Abdomen: soft, non tender, bowel sounds - Genitourinary Deferred - Rectum Deferred - Integumentary no rash, no growths, no abnormal pigmentation - Neurologic normal coordination, normal sensation - Musculoskeletal normal posture - Psychiatric oriented to time, oriented to person, oriented to place, speech is normal, memory intact Results - Imaging Additional studies: Heart cath films reviewed with Dr. Sethi Assessment and Plan Assessment: 1. Coronary artery disease with left main disease, IVUS of left main 2.6 mm square 2. History of pulmonary fibrosis 3. Asthma 4. Hypertension 5. Hyperlipidemia 6. Obesity 7. Osteoarthritis 8. Cervical stenosis post anterior cervical decompression, discectomy and fusion Plan: The patient was seen and examined with Dr. Sethi. Chart/diagnostics were reviewed. The usual perioperative course of open heart surgery was discussed with the patient and her , risks and benefits were reviewed, all questions answered. The patient is to follow up in the office at the end of the week with Dr. Sethi to review preoperative testing and schedule surgery. We made appointment with Dr. Guadalupe for pulmonary clearance. Recommend continuing ASA, statin, nitrate, will prescribe low dose beta sisi. More recommendations to follow at follow up appointment. Thank you Dr. Anderson for this consult. Time with Patient: Greater than 30
[2020-07-27] MEDS ORDERED: ACETAMINOPHEN TAB 500 MG TAB PO ONE (14:23)
[2020-07-27 15:02] VITALS: BP 112/72; PULSE 72
--- NOTE | 2020-07-27 15:29 | US ---
EXAMINATION TYPE: US carotid duplex BILAT DATE OF EXAM: 07/27/2020 COMPARISON: NONE CLINICAL HISTORY: pre cabg. EXAM MEASUREMENTS: RIGHT: Peak Systolic Velocity (PSV) cm/sec ----- Right CCA: 83.1 ----- Right ICA: 87.5 (bulb) ----- Right ECA: 84.2 ICA/CCA ratio: 1.1 RIGHT: End Diastole cm/sec ----- Right CCA: 17.3 ----- Right ICA: 13.8 ----- Right ECA: 9.7 LEFT: Peak Systolic Velocity (PSV) cm/sec ----- Left CCA: 66.6 ----- Left ICA: 67.2 ----- Left ECA: 62.0 ICA/CCA ratio: 1.0 LEFT: End Diastole cm/sec ----- Left CCA: 18.6 ----- Left ICA: 18.6 ----- Left ECA: 10.1 VERTEBRALS (direction of flow): Right Vertebral: Antegrade Left Vertebral: Antegrade Short thick neck, technically difficult study. No significant increased velocities seen bilaterally. Grayscale, color Doppler, spectral Doppler imaging performed of the carotid arteries. Waveform analysis does not show significant stenosis of the proximal internal carotid arteries IMPRESSION: No hemodynamic significant stenosis of the proximal internal carotid arteries, indirect measurement of carotid stenosis Criteria for Assigning % of Stenosis / Diameter reduction (Estimation based on the indirect measurements of the internal carotid artery velocities (ICA PSV). 1. Normal (no stenosis)=ICA PSV < 125 cm/s: ratio < 2.0: ICA EDV<40 cm/s. 2. Less than 50% stenosis=ICA PSV < 125 cm/s: ratio < 2.0: ICA EDV<40 cm/s. 3. 50 to 69% stenosis=ICA PSV of 125 to 230 cm/s: ration 2.0 ? 4.0: ICA EDV 40-100 cm/s. 4. Greater than 70% stenosis to near occlusion= ICA PSV > 230 cm/s: ratio > 4.0: ICA EDV > 100 cm/s. 5. Near occlusion= ICA PSV velocities may be low or undetectable: variable ratio and ICA EDV. 6. Total occlusion=unable to detect flow.
[2020-07-28] MEDS ORDERED: ASPIRIN 81 MG PO SCH (09:00)
[2020-07-28] MEDS ORDERED: LOSARTAN 50 MG TAB PO SCH (09:00)
[2020-07-28] MEDS ORDERED: ATORVASTATIN 20 MG TAB PO SCH (09:00)
--- NOTE | 2020-07-29 11:11 | P.VSCSTY ---
Greater Saphenous Vein Mapping This is bilateral lower extremity greater saphenous vein mapping. Date of service: 07/27/2020 Vein quality and ultrasound appearance: We see no intraluminal thrombus or wall changes. Vein size groin right : 3.8 x 4.4 groin left: 6.3 x 5.7 High thigh right: 3.4 x 3.0 high thigh left: 4.8 x 5.0 Mid thigh right: 3.7 x 3.2 mid thigh left: 5.3 x 4.6 Above-knee right: 4.0 x 3.8 above- knee left: 4.3 x 3.7 Below knee right: 4.1 x 3.8 below-knee left: 4.9 x 3.8 Mid calf right: 2.4 x 2.3 mid calf left: 3.4 x 3.2 Ankle right: 4.5 x 3.7 ankle left: 3.1 x 2.7 Impression: Usable bilateral greater saphenous vein.
== END 2020-07-27 15:04 | disposition home or self-care (01) ==
LOC: CATHCVL 07:35
PROVIDERS: ATTEND Internal Medicine Interventional Cardiology
DX: I25.10 Atherosclerotic heart disease of native coronary artery without angina pectoris (principal); R94.39 Abnormal result of other cardiovascular function study; R07.89 Other chest pain; E87.5 Hyperkalemia; I10 Essential (primary) hypertension; E66.01 Morbid (severe) obesity due to excess calories; E78.00 Pure hypercholesterolemia, unspecified; J84.10 Pulmonary fibrosis, unspecified; J45.909 Unspecified asthma, uncomplicated; I08.3 Combined rheumatic disorders of mitral, aortic and tricuspid valves; M89.49 Other hypertrophic osteoarthropathy, multiple sites; M48.02 Spinal stenosis, cervical region; Z72.0 Tobacco use; Z79.82 Long term (current) use of aspirin; Z79.899 Other long term (current) drug therapy; Z79.1 Long term (current) use of non-steroidal anti-inflammatories (NSAID); Z68.35 Body mass index [BMI] 35.0-35.9, adult; Z98.1 Arthrodesis status; Z86.73 Personal history of transient ischemic attack (TIA), and cerebral infarction without residual deficits; Z85.828 Personal history of other malignant neoplasm of skin; Z98.890 Other specified postprocedural states; Z90.49 Acquired absence of other specified parts of digestive tract; Z90.89 Acquired absence of other organs; Z98.51 Tubal ligation status; Z98.41 Cataract extraction status, right eye; Z98.42 Cataract extraction status, left eye; Z96.1 Presence of intraocular lens; Z87.891 Personal history of nicotine dependence; Z91.09 Other allergy status, other than to drugs and biological substances; Z91.040 Latex allergy status; Z82.49 Family history of ischemic heart disease and other diseases of the circulatory system; Z80.3 Family history of malignant neoplasm of breast; Z80.7 Family history of other malignant neoplasms of lymphoid, hematopoietic and related tissues
CPT/HCPCS: 93571; 92978; 93460; 85018; 82810; 93970; 93880; C1887; C1751; C1753; C1769; C1894; J2250; J2001; J3010; J1644; J0153; Q9967

== ENCOUNTER → 2020-08-05 | Outpatient (CLI) | payer MEDICARE ==
[2020-08-05 12:05] LABS: HCT 37.3 % (34.0-46.0); HGB 13.1 gm/dL (11.4-16.0); MCH 31.1 pg (25.0-35.0); MCHC 35.1 g/dL (31.0-37.0); MCV 88.7 fL (80.0-100.0); Mean Platelet Volume 6.8; Platelet Count 263 k/uL (150-450); RDW 13.1 % (11.5-15.5); WBC 7.2 k/uL (3.8-10.6)
[2020-08-05 12:15] LABS: Appearance,Urine Clear (Clear); Bilirubin,Urine Negative (Negative); Blood,Urine Trace (Negative); Color,Urine Yellow; Glucose,Urine (UA) Negative (Negative); INR 0.9 (<1.2); Ketones,Urine Negative (Negative); Leukocyte Esterase,Urine Negative (Negative); Nitrite,Urine Negative (Negative); PH, Urine 6.5 (5.0-8.0); Partial Thromboplastin Time 25.7 sec (22.0-30.0); Protein,Urine Negative (Negative); Prothrombin Time 9.8 sec (9.0-12.0); RBC,Urine 2 /hpf (0-5); Specific Gravity,Urine 1.016 (1.001-1.035); Squamous Epithelial Cell,Urine 1 /hpf (0-4); Urobilinogen,Urine <2.0 mg/dL (<2.0); WBC,Urine 1 /hpf (0-5)
--- NOTE | 2020-08-05 13:43 | XR ---
EXAMINATION TYPE: XR chest 2V DATE OF EXAM: 08/05/2020 COMPARISON: Chest x-ray 10/20/2017 HISTORY: Coronary artery disease, I 25.10, U07.1, preop, Z 79.899, Z 79.01, I 10 TECHNIQUE: Frontal and lateral views of the chest are obtained. FINDINGS: There is no focal air space opacity, pleural effusion, or pneumothorax seen. The cardiac silhouette size is within normal limits. Interstitium is increased. The osseous structures are intact , sclerotic density present in the right humeral head, patient is post cervical fusion. Suspect bilat eral pleural thickening. There is thoracic spondylosis. Patient is rotated. Surgical clips present in the right upper quadrant. There is prominence of lung volumes possibly indicating COPD. IMPRESSION: Interstitial lung disease, findings above.
[2020-08-05 13:44] LABS: ALT 23 U/L (4-34); AST 26 U/L (14-36); African American GFR (CKD) >90 (>60 ml/min/1.73 sqM); Alkaline Phosphatase 91 U/L (38-126); Anion Gap 7 mmol/L; Blood Urea Nitrogen 21 mg/dL (7-17); Calcium 9.2 mg/dL (8.4-10.2); Carbon Dioxide 30 mmol/L (22-30); Chloride 83 mmol/L (98-107); Cholesterol 186 mg/dL (<200); Glucose 112 mg/dL (74-99); HDL Cholesterol 61 mg/dL (40-60); LDL Cholesterol,Calculated 98 mg/dL (0-99); Magnesium 1.8 mg/dL (1.6-2.3); Non-African American GFR(CKD) 79 (>60 ml/min/1.73 sqM); Sodium 120 mmol/L (137-145); Total Bilirubin 0.9 mg/dL (0.2-1.3); Total Protein 6.8 g/dL (6.3-8.2); Triglycerides 135 mg/dL (<150)
[2020-08-05 21:45] LABS: Hemoglobin A1C 5.4 % (4.0-6.0)
[2020-08-05 22:23] LABS: Hepatitis A Antibody IgM Non-Reactive (Non-Reactive); Hepatitis B Core IgM Non-Reactive (Non-Reactive); Hepatitis B Surface Antigen Non-Reactive (Non-Reactive); Hepatitis C IgG Antibody Non-Reactive (Non-Reactive)
== END ==
LOC: LABPAT 07:57
PROVIDERS: ATTEND Surgery
DX: Z01.818 Encounter for other preprocedural examination (principal); I25.10 Atherosclerotic heart disease of native coronary artery without angina pectoris; Z91.040 Latex allergy status; Z91.09 Other allergy status, other than to drugs and biological substances; Z20.828 Contact with and (suspected) exposure to other viral communicable diseases; R94.5 Abnormal results of liver function studies; Z79.899 Other long term (current) drug therapy; Z79.01 Long term (current) use of anticoagulants; I10 Essential (primary) hypertension
CPT/HCPCS: 80061; 80053; 80074; 84443; 83735; 85027; 85610; 85730; 81001; 87070; 87086; 83036; 71046; 93922; 93005; 36415; U0003; C9803; U0005; 83935; 84300

== ENCOUNTER 2020-08-06 12:21 | Inpatient (IN) | payer MEDICARE ==
[2020-08-05 16:01] VITALS: BMI 35.2
--- NOTE | 2020-08-06 12:59 | ED ---
General Adult HPI - General Chief complaint: Recheck/Abnormal Lab/Rx Stated complaint: sent by PCP Time Seen by Provider: 08/06/20 12:25 Source: patient, family, RN notes reviewed, old records reviewed Mode of arrival: ambulatory - History of Present Illness Initial comments: This is a 75-year-old female who presents emergency department because she was sent in because her sodium was low. She supposed have open heart surgery on Monday and they wanted to bring her into her sodium up prior to surgery. Patient states she's completely asymptomatic except for feeling a little bit tired. Patient denies chest pain palpitations difficulty breathing first breath per patient denies any fever chills or cough per patient denies abdominal pain patient denies nausea vomiting diarrhea. Patient denies headache patient denies lightheadedness or dizziness. - Related Data Home Medications Medication Instructions Recorded Confirmed Ipratropium-Albuterol Nebulize 3 ml INHALATION RT-QID PRN 05/18/15 08/06/20 [Duoneb 0.5 mg-3 mg/3 ml Soln] Losartan Potassium 100 mg PO DAILY 05/18/15 08/06/20 Simvastatin [Zocor] 40 mg PO DAILY 05/18/15 08/06/20 Aspirin EC [Ecotrin Low Dose] 81 mg PO DAILY 04/10/17 08/06/20 Ibuprofen [Motrin] 800 mg PO TID PRN 12/05/17 08/06/20 Nitroglycerin Sl Tabs [Nitrostat] 0.5 tab SUBLINGUAL Q5M PRN 07/22/20 08/06/20 hydroCHLOROthiazide 25 mg PO DAILY 07/27/20 08/06/20 Isosorbide Mononitrate ER [Imdur] 15 mg PO DAILY 08/05/20 08/06/20 Albuterol Sulfate [Albuterol 2 puff PO RT-Q6H PRN 08/06/20 08/06/20 Sulfate Hfa] Metoprolol Tartrate [Lopressor] 12.5 mg PO BID 08/06/20 08/06/20 Allergies Allergy/AdvReac Type Severity Reaction Status Date / Time adhesive Allergy blisters Verified 08/06/20 13:48 latex Allergy Rash/Hives Verified 08/06/20 13:48 Review of Systems ROS Statement: Those systems with pertinent positive or pertinent negative responses have been documented in the HPI. ROS Other: All systems not noted in ROS Statement are negative. Past Medical History Past Medical History: Hyperlipidemia, Hypertension Additional Past Medical History / Comment(s): skin cancer with removals, arthritis multiple joints, back and cervical pain, ?TIA in her teens-shows up on scan?, pulmonary fibrosis History of Any Multi-Drug Resistant Organisms: None Reported Past Surgical History: Cholecystectomy, Heart Catheterization, Tonsillectomy, Tubal Ligation Additional Past Surgical History / Comment(s): 2 cardiac caths without intervention, bilateral cataract removal with lens implants, skin cancer removals, cyst removed from neck, colonoscopy, cervical fusion Past Anesthesia/Blood Transfusion Reactions: No Reported Reaction Additional Past Anesthesia/Blood Transfusion Reaction / Comment(s): Pt has never received blood. Past Psychological History: No Psychological Hx Reported Smoking Status: Former smoker Past Alcohol Use History: Occasional Past Drug Use History: None Reported - Past Family History Brother(s) Family Medical History: Coronary Artery Disease (CAD) Additional Family Medical History / Comment(s): "bad heart" aneurysm Sister(s) Family Medical History: Cancer Additional Family Medical History / Comment(s): breast cancer Mother Family Medical History: Cancer, Coronary Artery Disease (CAD) Additional Family Medical History / Comment(s): Lymphoma, had a pacemaker. Mother at the age of 92yrs. Father Family Medical History: Coronary Artery Disease (CAD), Myocardial Infarction ([place]) Additional Family Medical History / Comment(s): Father of a [place] at the age of 63 yrs. General Exam - General Exam Comments Initial Comments: GENERAL: Patient is well-developed and well-nourished. Patient is nontoxic and well- hydrated and is in no acute distress. ENT: Neck is soft and supple. No significant lymphadenopathy is noted. Oropharynx is clear. Moist mucous membranes. Neck has full range of motion without eliciting any pain. EYES: The sclera were anicteric and conjunctiva were pink and moist. Extraocular movements were intact and pupils were equal round and reactive to light. Eyelids were unremarkable. PULMONARY: Unlabored respirations. Good breath sounds bilaterally. No audible rales rhonchi or wheezing was noted. CARDIOVASCULAR: There is a regular rate and rhythm without any murmurs gallops or rubs. ABDOMEN: Soft and nontender with normal bowel sounds. No palpable organomegaly was noted. There is no palpable pulsatile mass. SKIN: Skin is clear with no lesions or rashes and otherwise unremarkable. NEUROLOGIC: Patient is alert and oriented x3. Cranial nerves II through XII are grossly intact. Motor and sensory are also intact. Normal speech, volume and content. Symmetrical smile. MUSCULOSKELETAL: Normal extremities with adequate strength and full range of motion. LYMPHATICS: No significant lymphadenopathy is noted PSYCHIATRIC: Normal psychiatric evaluation. Course Vital Signs 08/06/20 12:23 Temperature 98.5 F Pulse Rate 68 Respiratory 18 Rate Blood Pressure 129/69 O2 Sat by Pulse 97 Oximetry Medical Decision Making - Medical Decision Making EKG shows sinus rhythm at 63 bpm [place] interval is 224 QRS is under QT intervals 42 QTC is 411. Patient's EKG shows no ST segment elevation or depression. I spoke with Dr. Lema and she stated she would be on consult and correct the patient's sodium. I spoke with Dr. Bentley he agreed to admit the patient I wrote admitting orders and admitted the patient. - Lab Data Result diagrams: 08/06/20 13:07 08/06/20 13:07 Lab Results 08/06/20 08/06/20 08/06/20 Range/Units 13:07 13:07 13:07 WBC 8.2 (3.8-10.6) k/uL RBC 4.41 (3.80-5.40) m/uL Hgb 14.1 (11.4-16.0) gm/dL Hct 38.3 (34.0-46.0) % MCV 86.9 (80.0-100.0) fL MCH 32.0 (25.0-35.0) pg MCHC 36.8 (31.0-37.0) g/dL RDW 13.1 (11.5-15.5) % Plt Count 270 (150-450) k/uL MPV 7.0 Neutrophils % 64 % Lymphocytes % 23 % Monocytes % 9 % Eosinophils % 2 % Basophils % 1 % Neutrophils # 5.2 (1.3-7.7) k/uL Lymphocytes # 1.9 (1.0-4.8) k/uL Monocytes # 0.7 (0-1.0) k/uL Eosinophils # 0.1 (0-0.7) k/uL Basophils # 0.1 (0-0.2) k/uL Sodium 122 L (137-145) mmol/L Potassium 4.1 (3.5-5.1) mmol/L Chloride 86 L (98-107) mmol/L Carbon Dioxide 27 (22-30) mmol/L Anion Gap 9 mmol/L BUN 20 H (7-17) mg/dL Creatinine 0.60 (0.52-1.04) mg/dL Est GFR (CKD-EPI)AfAm >90 (>60 ml/min/1.73 sqM) Est GFR (CKD-EPI)NonAf >90 (>60 ml/min/1.73 sqM) Glucose 106 H (74-99) mg/dL Calcium 9.2 (8.4-10.2) mg/dL Total Bilirubin 0.8 (0.2-1.3) mg/dL AST 29 (14-36) U/L ALT 22 (4-34) U/L Alkaline Phosphatase 78 (38-126) U/L Total Protein 6.8 (6.3-8.2) g/dL Albumin 4.0 (3.5-5.0) g/dL Urine Color Yellow Urine Appearance Clear (Clear) Urine pH 6.0 (5.0-8.0) Ur Specific [place] 1.021 (1.001-1.035) Urine Protein Negative (Negative) Urine Glucose (UA) Negative (Negative) Urine Ketones Negative (Negative) Urine Blood Trace H (Negative) Urine Nitrite Negative (Negative) Urine Bilirubin Negative (Negative) Urine Urobilinogen <2.0 (<2.0) mg/dL Ur Leukocyte Esterase Small H (Negative) Urine RBC 3 (0-5) /hpf Urine WBC 2 (0-5) /hpf Ur Squamous Epith Cells 4 (0-4) /hpf Urine Mucus Rare H (None) /hpf Disposition Clinical Impression: Hyponatremia Disposition: ADMITTED IP TO THIS HOSP Referrals: Rich Avila MD [Primary Care Provider] - 1-2 days Time of Disposition: 14:16
[2020-08-06 13:33] LABS: Basophils # (A) 0.1 k/uL (0-0.2); Basophils % (A) 1 %; Eosinophils # (A) 0.1 k/uL (0-0.7); Eosinophils % (A) 2 %; HCT 38.3 % (34.0-46.0); HGB 14.1 gm/dL (11.4-16.0); Lymphocytes # (A) 1.9 k/uL (1.0-4.8); Lymphocytes % (A) 23 %; MCHC 36.8 g/dL (31.0-37.0); MCV 86.9 fL (80.0-100.0); Monocytes # (A) 0.7 k/uL (0-1.0); Monocytes % (A) 9 %; Neutrophils # (A) 5.2 k/uL (1.3-7.7); Neutrophils % (A) 64 %; Platelet Count 270 k/uL (150-450); RBC 4.41 m/uL (3.80-5.40); RDW 13.1 % (11.5-15.5); WBC 8.2 k/uL (3.8-10.6)
[2020-08-06 13:44] LABS: ALT 22 U/L (4-34); AST 29 U/L (14-36); African American GFR (CKD) >90 (>60 ml/min/1.73 sqM); Alkaline Phosphatase 78 U/L (38-126); Anion Gap 9 mmol/L; Appearance,Urine Clear (Clear); Bilirubin,Urine Negative (Negative); Blood Urea Nitrogen 20 mg/dL (7-17); Blood,Urine Trace (Negative); Calcium 9.2 mg/dL (8.4-10.2); Carbon Dioxide 27 mmol/L (22-30); Chloride 86 mmol/L (98-107); Color,Urine Yellow; Glucose 106 mg/dL (74-99); Glucose,Urine (UA) Negative (Negative); Ketones,Urine Negative (Negative); Leukocyte Esterase,Urine Small (Negative); Mucus,Urine Rare /hpf; Nitrite,Urine Negative (Negative); Non-African American GFR(CKD) >90 (>60 ml/min/1.73 sqM); Protein,Urine Negative (Negative); RBC,Urine 3 /hpf (0-5); Sodium 122 mmol/L (137-145); Specific Gravity,Urine 1.021 (1.001-1.035); Squamous Epithelial Cell,Urine 4 /hpf (0-4); Total Bilirubin 0.8 mg/dL (0.2-1.3); Total Protein 6.8 g/dL (6.3-8.2); Urobilinogen,Urine <2.0 mg/dL (<2.0); WBC,Urine 2 /hpf (0-5)
[2020-08-06 13:54] LABS: Potassium 4.1 mmol/L (3.5-5.1)
[2020-08-06] MEDS ORDERED: SODIUM CHLORIDE 0.9% 1,000 ML IV ONE (14:16)
[2020-08-06] MEDS ORDERED: ALBUTEROL NEBULIZED 2.5 MG/3 ML INHALATION PRN (14:57)
[2020-08-06] MEDS ORDERED: NITROGLYCERIN SL TABS 0.4 MG TAB SUBLINGUAL PRN (14:57)
--- NOTE | 2020-08-06 16:00 | P.HPIM ---
History of Present Illness H&P Date: 08/06/20 Chief Complaint: Hyponatremia This is a 75-year-old female patient of Dr. Avila and Dr. Garcia with a past medical history of pulmonary fibrosis, asthma, hypertension, hyperlipidemia, obesity, osteoarthritis, cervical stenosis status post anterior cervical decompression, discectomy and fusion. Patient recently underwent stress testing which demonstrated anterior wall ischemia with small reversible defect. It was recommended to undergo heart catheterization which was completed and showed calcified coronary artery, significant distal left main by IVUS, mild to moder ate disease of the left anterior descending artery. Transthoracic echo was completed showed EF of 55%, mild mitral regurgitation, mild tricuspid regurgitation. Patient was then referred for coronary artery bypass grafting. During her outpatient preoperative workup patient was noted to have hyponatremia with sodium level of 120. She was advised to go to the emergency department to be admitted to correct her sodium level. Patient reports she's asymptomatic, she denies any chest pain, palpitations, shortness of breath, fever, chills, no nausea, vomiting, diarrhea, or diarrhea. Consult placed for nephrology, she was started on 0.9 normal saline at 75 mL per hour. Review of Systems Constitutional: Reports fatigue, Denies chills, Denies fever, Denies lethargy, Denies malaise, Denies weakness Ears, nose, mouth and throat: Denies headache, Denies nasal congestion, Denies nasal discharge, Denies sinus pain, Denies sinus pressure, Denies sore throat Cardiovascular: Denies chest pain, Denies edema, Denies irregular heart beat, Denies leg edema, Denies orthopnea, Denies palpitations, Denies shortness of breath, Denies syncope Respiratory: Denies congestion, Denies cough, Denies pain, Denies respiratory infections, Denies wheezing Gastrointestinal: Denies abdominal pain, Denies constipation, Denies diarrhea, Denies dyspepsia, Denies heartburn, Denies hematemesis, Denies loss of appetite, Denies nausea, Denies vomiting Genitourinary: Denies dysuria, Denies hematuria, Denies urgency Musculoskeletal: Denies arm numbness/tingling, Denies atrophy, Denies fractures, Denies frequent falls, Denies gait dysfunction, Denies myalgias, Denies neck pain, Denies neck stiffness Integumentary: Denies dryness, Denies lesions, Denies pruritus, Denies sores, Denies wounds Neurological: Denies confusion, Denies gait dysfunction, Denies headaches, Denies paralysis, Denies seizures, Denies spasticity, Denies syncope, Denies vertigo Psychiatric: Denies anxiety, Denies confusion, Denies irritability, Denies mood swings, Denies paranoia, Denies suicidal ideation Endocrine: Denies excessive sweating, Denies fatigue, Denies high blood sugars, Denies palpitations, Denies polyphagia, Denies polyuria, Denies thyroid mass Hematologic/Lymphatic: Denies easy bruising, Denies lymphadenopathy, Denies lymphedema Past Medical History Past Medical History: Hyperlipidemia, Hypertension Additional Past Medical History / Comment(s): skin cancer with removals, arthritis multiple joints, back and cervical pain, ?TIA in her teens-shows up on scan?, pulmonary fibrosis History of Any Multi-Drug Resistant Organisms: None Reported Past Surgical History: Cholecystectomy, Heart Catheterization, Tonsillectomy, Tubal Ligation Additional Past Surgical History / Comment(s): 2 cardiac caths without intervention, bilateral cataract removal with lens implants, skin cancer removals, cyst removed from neck, colonoscopy, cervical fusion Past Anesthesia/Blood Transfusion Reactions: No Reported Reaction Additional Past Anesthesia/Blood Transfusion Reaction / Comment(s): Pt has never received blood. Past Psychological History: No Psychological Hx Reported Additional Psychological History / Comment(s): Pt resides with her spouse. She drives. Smoking Status: Former smoker Past Alcohol Use History: Occasional Additional Past Alcohol Use History / Comment(s): Pt started smoking in 1961 and quit in 1981. She smoked one and half packs per day. Past Drug Use History: None Reported - Past Family History Brother(s) Family Medical History: Coronary Artery Disease (CAD) Additional Family Medical History / Comment(s): "bad heart" aneurysm Sister(s) Family Medical History: Cancer Additional Family Medical History / Comment(s): breast cancer Mother Family Medical History: Cancer, Coronary Artery Disease (CAD) Additional Family Medical History / Comment(s): Lymphoma, had a pacemaker. Mother at the age of 92yrs. Father Family Medical History: Coronary Artery Disease (CAD), Myocardial Infarction (PA) Additional Family Medical History / Comment(s): Father of a PA at the age of 63 yrs. Medications and Allergies Home Medications Medication Instructions Recorded Confirmed Type Ipratropium-Albuterol Nebulize 3 ml INHALATION RT-QID PRN 05/18/15 08/06/20 History [Duoneb 0.5 mg-3 mg/3 ml Soln] Losartan Potassium 100 mg PO DAILY 05/18/15 08/06/20 History Simvastatin [Zocor] 40 mg PO DAILY 05/18/15 08/06/20 History Aspirin EC [Ecotrin Low Dose] 81 mg PO DAILY 04/10/17 08/06/20 History Ibuprofen [Motrin] 800 mg PO TID PRN 12/05/17 08/06/20 History Nitroglycerin Sl Tabs [Nitrostat] 0.5 tab SUBLINGUAL Q5M PRN 07/22/20 08/06/20 History hydroCHLOROthiazide 25 mg PO DAILY 07/27/20 08/06/20 History Isosorbide Mononitrate ER [Imdur] 15 mg PO DAILY 08/05/20 08/06/20 History Albuterol Sulfate [Albuterol 2 puff PO RT-Q6H PRN 08/06/20 08/06/20 History Sulfate Hfa] Metoprolol Tartrate [Lopressor] 12.5 mg PO BID 08/06/20 08/06/20 History Allergies Allergy/AdvReac Type Severity Reaction Status Date / Time adhesive Allergy blisters Verified 08/06/20 13:48 latex Allergy Rash/Hives Verified 08/06/20 13:48 Physical Exam Vitals: Vital Signs Temp Pulse Resp BP Pulse Ox 08/06/20 12:23 98.5 F 68 18 129/69 97 Intake and Output 08/06/20 08/06/20 08/06/20 06:59 14:59 22:59 Other: Weight 81.647 kg - Constitutional General appearance: cooperative, no acute distress - EENT Eyes: EOMI, PERRLA, normal appearance ENT: hearing grossly normal, normal oropharynx, no pharyngeal erythema, no thrush - Neck Neck: no lymphadenopathy, normal ROM, no rigidity, no stridor, no thyromegaly - Respiratory Respiratory: bilateral: CTA, negative: diminished, rhonchi, wheezing - Cardiovascular Rhythm: regular Heart sounds: normal: S1, S2 - Gastrointestinal General gastrointestinal: no distended, no hepatomegaly, no organomegaly, soft, no tenderness - Integumentary Integumentary: normal, no normal turgor, no pale, no rash, no ulcer - Neurologic Neurologic: CNII-XII intact - Musculoskeletal Musculoskeletal: no generalized weakness, strength equal bilaterally, no right sided weakness, no left sided weakness - Psychiatric Psychiatric: A&O x's 3, appropriate affect, intact judgment & insight Results CBC & Chem 7: 08/06/20 13:07 08/06/20 13:07 Labs: Abnormal Lab Results - Last 24 Hours (Table) 08/06/20 08/06/20 Range/Units 13:07 13:07 Sodium 122 L (137-145) mmol/L Chloride 86 L (98-107) mmol/L BUN 20 H (7-17) mg/dL Glucose 106 H (74-99) mg/dL Urine Blood Trace H (Negative) Ur Leukocyte Esterase Small H (Negative) Urine Mucus Rare H (None) /hpf Thrombosis Risk Factor Assmnt - Choose All That Apply Any of the Below Risk Factors Present?: Yes Each Factor Represents 1 point: Obesity (BMI >25) Other Risk Factors: Yes Each Risk Factor Represents 2 Points: Age 61-74 years Thrombosis Risk Factor Assessment Total Risk Factor Score: 3 Thrombosis Risk Factor Assessment Level: Moderate Risk Assessment and Plan Plan: 1. Hyponatremia. Sodium level 122, hydrochlorothiazide is on hold, will repeat sodium tomorrow, nephrology on consult, 0.9% NS 2. 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 Will be undergoing open heart surgery planned for Monday. 3. History of pulmonary fibrosis. Continue duo nebs and albuterol 4. Asthma. Continue ipratropium albuterol nebulizers 5. Hyperlipidemia. Continue simvastatin 20 mg daily 6. Hypertension. Continue isosorbide 30 mg daily, losartan 100 mg daily, metoprolol 25 mg twice a day 7. GI prophylaxis. Pantoprazole 8. DVT prophylaxis: SCDs The above impression and plan of care have been discussed and directed by signing physician. Danielle Yun nurse practitioner acting as scribe for signing physician.
[2020-08-06] MEDS ORDERED: BENZOCAINE/MENTHOL LOZENG 1 EACH LOZENGE MUCOUS MEM PRN (16:15)
[2020-08-06] MEDS: METOPROLOL TARTRATE 12.5 MG TAB PO SCH (21:35)
[2020-08-06] MEDS: ACETAMINOPHEN TAB 325 MG TAB PO PRN (21:36)
[2020-08-07 05:48] LABS: African American GFR (CKD) >90 (>60 ml/min/1.73 sqM); Anion Gap 7 mmol/L; Blood Urea Nitrogen 20 mg/dL (7-17); Calcium 9.2 mg/dL (8.4-10.2); Carbon Dioxide 28 mmol/L (22-30); Chloride 90 mmol/L (98-107); Glucose 92 mg/dL (74-99); Non-African American GFR(CKD) 86 (>60 ml/min/1.73 sqM); Sodium 125 mmol/L (137-145)
[2020-08-07] MEDS: IPRATROPIUM-ALBUTEROL 3 ML NEB INHALATION PRN ×2 (07:56→16:48)
[2020-08-07] MEDS: ACETAMINOPHEN TAB 325 MG TAB PO PRN ×2 (07:57→22:03)
[2020-08-07] MEDS ORDERED: SODIUM CHLORIDE TAB 1 GM TAB PO STA (09:33)
[2020-08-07] MEDS: LOSARTAN 50 MG TAB PO SCH (10:06)
[2020-08-07] MEDS: ATORVASTATIN 20 MG TAB PO SCH (10:07)
[2020-08-07] MEDS: ISOSORBIDE MONONITRATE ER 15 MG TAB PO SCH (10:08)
[2020-08-07] MEDS: METOPROLOL TARTRATE 12.5 MG TAB PO SCH ×2 (10:09→21:52)
[2020-08-07] MEDS: ASPIRIN 81 MG PO SCH (10:09)
[2020-08-07] MEDS ORDERED: ONDANSETRON 4 MG/2 ML VIAL IVP PRN (10:32)
--- NOTE | 2020-08-07 13:48 | P.PN ---
Subjective Progress Note Date: 08/07/20 HISTORY OF PRESENT ILLNESS This is a 75-year-old female patient of Dr. Avila and Dr. Garcia with a past medical history of pulmonary fibrosis, asthma, hypertension, hyperlipidemia, obesity, osteoarthritis, cervical stenosis status post anterior cervical decompression, discectomy and fusion. Patient recently underwent stress testing which demonstrated anterior wall ischemia with small reversible defect. It was recommended to undergo heart catheterization which was completed and showed calcified coronary artery, significant distal left main by IVUS, mild to moderate disease of the left anterior descending artery. Transthoracic echo was completed showed EF of 55%, mild mitral regurgitation, mild tricuspid regurgitation. Patient was then referred for coronary artery bypass grafting. During her outpatient preoperative workup patient was noted to have hyponatremia with sodium level of 120. She was advised to go to the emergency department to be admitted to correct her sodium level. Patient reports she's asymptomatic, she denies any chest pain, palpitations, shortness of breath, fever, chills, no nausea, vomiting, diarrhea, or diarrhea. Consult placed for nephrology, she was started on 0.9 normal saline at 75 mL per hour. 08/07: Patient has been afebrile, heart rate 62, blood pressure 132/70, pulse ox 90% on room air. Sodium today is at 125. Potassium 4.0, chloride 90, CO2 20, BUN 20 creatinine 0.7. Patient is followed by nephrology and received sodium chloride tablet 2 g once this morning. Repeat sodium level at 2 PM, cortisol level ordered and TSH. Patient states that she is feeling well today. She denies any lightheadedness or dizziness. No chest pain or shortness of breath. She is scheduled for open heart surgery on Monday and anticipates that she will be here through the weekend. REVIEW OF SYSTEMS Constitutional: Reports fatigue, Denies chills, Denies fever, Denies lethargy, Denies malaise, Denies weakness Ears, nose, mouth and throat: Denies headache, Denies nasal congestion, Denies nasal discharge, Denies sinus pain, Denies sinus pressure, Denies sore throat Cardiovascular: Denies chest pain, Denies edema, Denies irregular heart beat, Denies leg edema, Denies orthopnea, Denies palpitations, Denies shortness of breath, Denies syncope Respiratory: Denies congestion, Denies cough, Denies pain, Denies respiratory infections, Denies wheezing Gastrointestinal: Denies abdominal pain, Denies constipation, Denies diarrhea, Denies dyspepsia, Denies heartburn, Denies hematemesis, Denies loss of appetite, Denies nausea, Denies vomiting Genitourinary: Denies dysuria, Denies hematuria, Denies urgency Musculoskeletal: Denies arm numbness/tingling, Denies atrophy, Denies fractures, Denies frequent falls, Denies gait dysfunction, Denies myalgias, Denies neck pain, Denies neck stiffness Integumentary: Denies dryness, Denies lesions, Denies pruritus, Denies sores, Denies wounds Neurological: Denies confusion, Denies gait dysfunction, Denies headaches, Denies paralysis, Denies seizures, Denies spasticity, Denies syncope, Denies vertigo Psychiatric: Denies anxiety, Denies confusion, Denies irritability, Denies mood swings, Denies paranoia, Denies suicidal ideation Endocrine: Denies excessive sweating, Denies fatigue, Denies high blood sugars, Denies palpitations, Denies polyphagia, Denies polyuria, Denies thyroid mass PHYSICAL EXAMINATION Gen: This is a 75-year-old female. She is sitting on the edge of the bed and appears to be comfortable and in no acute distress. HEENT: Head is atraumatic, normocephalic. Pupils equal, round. Sclerae is anicteric. NECK: Supple. No JVD. No lymphadenopathy. No thyromegaly. LUNGS: Clear to auscultation. No wheezes or rhonchi. No intercostal retractions. HEART: Regular rate and rhythm. No murmur. ABDOMEN: Soft. Bowel sounds are present. No masses. No tenderness. EXTREMITIES: No pedal edema. No calf tenderness. Dorsalis pedis palpable bilaterally. NEUROLOGICAL: Patient is awake, alert and oriented x3. Cranial nerves 2 through 12 are grossly intact. ASSESSMENT AND PLAN 1. Hyponatremia. Sodium level 122, hydrochlorothiazide is on hold. Patient is status post sodium bicarb 2 g tablet. Nephrology is following. Repeat sodium level at 2 PM, BMP in the morning 2. 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 Will be undergoing open heart surgery planned for Monday. 3. History of pulmonary fibrosis. Continue duo nebs and albuterol 4. Asthma. Continue ipratropium albuterol nebulizers 5. Hyperlipidemia. Continue simvastatin 20 mg daily 6. Hypertension. Continue isosorbide 30 mg daily, losartan 100 mg daily, metoprolol 25 mg twice a day 7. GI prophylaxis. Pantoprazole 8. DVT prophylaxis: SCDs DISCHARGE PLAN TBD. Impression and plan of care have been directed as dictated by the signing physician. Monica Fragoso nurse practitioner acting as scribe for signing physician. Objective - Vital Signs Vital signs: Vital Signs Temp 97.7 F 08/07/20 06:56 Pulse 62 08/07/20 06:56 Resp 14 08/07/20 06:56 BP 132/70 08/07/20 06:56 Pulse Ox 98 08/07/20 06:56 Intake & Output 08/06/20 08/07/20 08/07/20 18:59 06:59 18:59 Intake Total 200 Balance 200 Weight 81.647 kg Intake: Oral 200 Other: Voiding Method Toilet # Voids 2 1 - Labs CBC & Chem 7: 08/06/20 13:07 08/07/20 05:21 Labs: Abnormal Lab Results - Last 24 Hours (Table) 08/06/20 08/06/20 08/06/20 Range/Units 13:07 13:07 21:05 Sodium 122 L 124 L (137-145) mmol/L Chloride 86 L (98-107) mmol/L BUN 20 H (7-17) mg/dL Glucose 106 H (74-99) mg/dL Urine Blood Trace H (Negative) Ur Leukocyte Esterase Small H (Negative) Urine Mucus Rare H (None) /hpf 08/07/20 Range/Units 05:21 Sodium 125 L (137-145) mmol/L Chloride 90 L (98-107) mmol/L BUN 20 H (7-17) mg/dL Glucose (74-99) mg/dL Urine Blood (Negative) Ur Leukocyte Esterase (Negative) Urine Mucus (None) /hpf
--- NOTE | 2020-08-07 22:21 | CONS ---
CONSULTATION REASON FOR CONSULTATION: Hyponatremia. HISTORY OF PRESENT ILLNESS: Patient is a 75-year-old female who is scheduled for elective coronary artery bypass surgery on Monday, August 10, 2020. The patient was noted to have hyponatremia on blood work done as outpatient preoperatively. Her sodium was 120 as outpatient, and when she came into the hospital it was at 122 yesterday. Patient had been on thiazides which were recently started about 3-4 months ago. Patient denied any previous history of hyponatremia. Her serum sodium was about 130 on 07/23/2020. Urine osmolality was 266 on 08/05/2020 as outpatient, and it was 344 today here. Blood pressure has not been elevated; in fact, slightly on the lower side with systolic of 101 yesterday. Patient was started on normal saline and her serum sodium slowly continues to improve; to 125 this morning. Patient also received a dose of sodium chloride tablets. She denies any complaints of nausea, vomiting, numbness, tingling, chest pains or shortness of breath. PAST MEDICAL HISTORY: Coronary artery disease, hypertension, skin cancer, osteoarthritis. PAST SURGICAL HISTORY: Cardiac catheterization, cholecystectomy, tubal ligation, cataract surgery, skin cancer removal, removal of cyst from the neck, colonoscopy, cervical fusion. SOCIAL HISTORY: Patient is a former smoker. No history of drug abuse or alcohol abuse. MEDICATIONS: Medications prior to admission included losartan, Zocor, Motrin, hydrochlorothiazide, Imdur, Lopressor, albuterol. ALLERGIES: ALLERGIES include ADHESIVE TAPE, LATEX. REVIEW OF SYSTEMS: As per HPI. Other systems negative. PHYSICAL EXAMINATION: Patient is comfortable, awake, alert, oriented x3, not in any acute distress. Blood pressure was 117/61, heart rate 68 per minute. She is afebrile. EXAMINATION OF THE HEART: S1 and S2. EXAMINATION OF LUNGS: Bilateral breath sounds are heard. ABDOMEN: Soft, non-tender. Examination of lower extremities shows no significant edema. SKEIN DRIER exam is grossly intact. LABS/IMAGING: Labs show sodium up to 126 this afternoon. Repeat urine osmolality was 344. Urine osmolality done on 08/05/2020 prior to admission was 266. Chest x-ray was not done this admission. ASSESSMENT: 1. Hyponatremia; appears to be hypovolemic, slowly improving with normal saline. The patient was also on thiazide diuretics, which will be held, and I will continue with the saline for now. She did receive a dose of sodium chloride tabs. We will repeat sodium this evening. Random cortisol level will be ordered. TSH done on 08/05/2020 was within normal range. 2. Hypertension, currently controlled. 3. Coronary artery disease with evidence of reversible ischemia on recent stress test as well as cardiac catheterization done as outpatient. Recommended for coronary artery bypass surgery, which is scheduled for August 10, 2020. PLAN: Continue with normal saline. Repeat sodium this evening. Increase oral protein intake. Check random cortisol level. MMODL / IJN: [id number] /
[2020-08-07] MEDS: SODIUM CHLORIDE 0.9% 1,000 ML IV SCH (22:28)
[2020-08-08] MEDS: ACETAMINOPHEN TAB 325 MG TAB PO PRN ×2 (07:49→20:31)
[2020-08-08] MEDS: ATORVASTATIN 20 MG TAB PO SCH (07:50)
[2020-08-08] MEDS: ISOSORBIDE MONONITRATE ER 15 MG TAB PO SCH (07:50)
[2020-08-08] MEDS: METOPROLOL TARTRATE 12.5 MG TAB PO SCH ×2 (07:50→20:31)
[2020-08-08] MEDS: ASPIRIN 81 MG PO SCH (07:50)
[2020-08-08] MEDS: LOSARTAN 50 MG TAB PO SCH (07:50)
[2020-08-08] MEDS: SODIUM CHLORIDE 0.9% 1,000 ML IV SCH (07:51)
[2020-08-08 09:37] LABS: African American GFR (CKD) 84.2 (60.0-200.0); Anion Gap 6.7 mmol/L (4.00-12.00); BUN/Creat Ratio 23.75 Ratio (12.00-20.00); Calcium 9.2 mg/dL (8.7-10.3); Carbon Dioxide 26.3 mmol/L (21.6-31.8); Non-African American GFR(CKD) 72.6 (60.0-200.0); Potassium 4.8 mmol/L (3.5-5.5)
--- NOTE | 2020-08-08 10:39 | P.PN ---
Subjective Progress Note Date: 08/08/20 Principal diagnosis: This is a 75-year-old seen because of hyponatremia. She was admitted with an preop workup showed her sodium to be low. He was 122 and now is up to 135 after IV saline. This is deemed to be from thiazide diuretics. She is known with history of coronary fibrosis asthma saw Aiden stenosis status post decompression, she underwent a positive stress test and had subsequent cardiac catheterization which showed significant disease. She is referred for bypass surgery which was scheduled on 08/10/2020. Currently she is fairly asymptomatic she is able to walk.. Somewhat low she is on Cozaar 100 mg a day. She is on salt tablets that was discontinued yesterday Objective - Vital Signs Vital signs: Vital Signs Temp 97.4 F L 08/08/20 07:31 Pulse 66 08/08/20 08:00 Resp 18 08/08/20 08:00 BP 105/65 08/08/20 07:31 Pulse Ox 97 08/08/20 07:31 Intake & Output 08/07/20 08/08/20 08/08/20 18:59 06:59 18:59 Intake Total 50 Balance 50 Intake: Oral 50 Other: Voiding Method Toilet Toilet # Voids 3 3 On examination is awake alert oriented cheerful HEENT exam no JVP neck is supple no facial asymmetry Lungs are clear to auscultation good air entry bilaterally Heart sounds are unremarkable for any murmur rub gallop Abdomen soft nontender Extremity exam was no edema Neurologically awake alert oriented - Labs CBC & Chem 7: 08/06/20 13:07 08/08/20 05:33 Labs: Abnormal Lab Results - Last 24 Hours (Table) 08/07/20 08/07/20 08/08/20 Range/Units 14:41 18:11 05:33 Sodium 126 L 127 L (137-145) mmol/L BUN/Creatinine Ratio 23.75 H (12.00-20.00) Ratio Assessment and Plan Assessment: Impression 1. Volume depleted and hyponatremic secondary to diuretics. Responded and normalize sodium 135 with IV saline 2. Coronary artery disease needs CABG scheduled for 08/10/2020 to in 2 days' time 3. Blood pressure is somewhat low on medication Recommendations 1. Discontinue IV saline 2. Reduce the Cozaar to 50 mg a day. 3. Recheck labs tomorrow
--- NOTE | 2020-08-08 17:14 | P.PN ---
Subjective Progress Note Date: 08/08/20 HISTORY OF PRESENT ILLNESS This is a 75-year-old female patient of Dr. Avila and Dr. Garcia with a past medical history of pulmonary fibrosis, asthma, hypertension, hyperlipidemia, obesity, osteoarthritis, cervical stenosis status post anterior cervical decompression, discectomy and fusion. Patient recently underwent stress testing which demonstrated anterior wall ischemia with small reversible defect. It was recommended to undergo heart catheterization which was completed and showed calcified coronary artery, significant distal left main by IVUS, mild to moderate disease of the left anterior descending artery. Transthoracic echo was completed showed EF of 55%, mild mitral regurgitation, mild tricuspid regurgitation. Patient was then referred for coronary artery bypass grafting. During her outpatient preoperative workup patient was noted to have hyponatremia with sodium level of 120. She was advised to go to the emergency department to be admitted to correct her sodium level. Patient reports she's asymptomatic, she denies any chest pain, palpitations, shortness of breath, fever, chills, no nausea, vomiting, diarrhea, or diarrhea. Consult placed for nephrology, she was started on 0.9 normal saline at 75 mL per hour. 08/07: Patient has been afebrile, heart rate 62, blood pressure 132/70, pulse ox 90% on room air. Sodium today is at 125. Potassium 4.0, chloride 90, CO2 20, BUN 20 creatinine 0.7. Patient is followed by nephrology and received sodium chloride tablet 2 g once this morning. Repeat sodium level at 2 PM, cortisol level ordered and TSH. Patient states that she is feeling well today. She denies any lightheadedness or dizziness. No chest pain or shortness of breath. She is scheduled for open heart surgery on Monday and anticipates that she will be here through the weekend. 08/08 colon, sodium is much better, instructions were for discontinuation of IV fluids, currently running at 75 mL an hour, sodium 135, seen by nephrology, patient is scheduled to have open heart surgery on Monday, and the would consult Dr. Sethi, and Dr. Harrison, who would assist with preop CABG management, patient denies any nausea vomiting, blood pressure is significantly much better today, no chest pain no difficulty breathing, but pressure fluctuates between 99 systolic to 161 systolic, heart rate stable at 60-69, creatinine at 0.08 urinalysis negative, patient continues to be off hydrochlorothiazide REVIEW OF SYSTEMS Constitutional: Reports fatigue, Denies chills, Denies fever, Denies lethargy, Denies malaise, Denies weakness Ears, nose, mouth and throat: Denies headache, Denies nasal congestion, Denies nasal discharge, Denies sinus pain, Denies sinus pressure, Denies sore throat Cardiovascular: Denies chest pain, Denies edema, Denies irregular heart beat, Denies leg edema, Denies orthopnea, Denies palpitations, Denies shortness of breath, Denies syncope Respiratory: Denies congestion, Denies cough, Denies pain, Denies respiratory infections, Denies wheezing Gastrointestinal: Denies abdominal pain, Denies constipation, Denies diarrhea, Denies dyspepsia, Denies heartburn, Denies hematemesis, Denies loss of appetite, Denies nausea, Denies vomiting Genitourinary: Denies dysuria, Denies hematuria, Denies urgency Musculoskeletal: Denies arm numbness/tingling, Denies atrophy, Denies fractures, Denies frequent falls, Denies gait dysfunction, Denies myalgias, Denies neck pain, Denies neck stiffness Integumentary: Denies dryness, Denies lesions, Denies pruritus, Denies sores, Denies wounds Neurological: Denies confusion, Denies gait dysfunction, Denies headaches, Denies paralysis, Denies seizures, Denies spasticity, Denies syncope, Denies vertigo Psychiatric: Denies anxiety, Denies confusion, Denies irritability, Denies mood swings, Denies paranoia, Denies suicidal ideation Endocrine: Denies excessive sweating, Denies fatigue, Denies high blood sugars, Denies palpitations, Denies polyphagia, Denies polyuria, Denies thyroid mass Objective - Vital Signs Vital signs: Vital Signs Temp 97.8 F 08/08/20 14:00 Pulse 69 08/08/20 14:00 Resp 18 08/08/20 14:00 BP 161/98 08/08/20 14:00 Pulse Ox 92 L 08/08/20 14:00 Intake & Output 08/07/20 08/08/20 08/08/20 18:59 06:59 18:59 Intake Total 50 Balance 50 Intake: Oral 50 Other: Voiding Method Toilet Toilet # Voids 3 3 3 - Constitutional General appearance: Present: cooperative, no acute distress - EENT Eyes: Present: anicteric sclerae, EOMI, PERRLA, dentition normal, normal appearance ENT: Present: NA/AT, normal oropharynx - Neck Neck: Present: normal ROM - Respiratory Respiratory: bilateral: CTA, negative: diminished, dullness, rales - Cardiovascular Rhythm: regular Heart sounds: normal: S1, S2 Abnormal Heart Sounds: Absent: systolic murmur, diastolic murmur, rub, S3 Gallop, S4 Gallop, click, other - Gastrointestinal General gastrointestinal: Present: normal bowel sounds, scaphoid - Integumentary Integumentary: Present: decreased turgor, normal - Neurologic Neurologic: Present: CNII-XII intact - Musculoskeletal Musculoskeletal: Present: gait normal, strength equal bilaterally - Psychiatric Psychiatric: Present: A&O x's 3, intact judgment & insight - Labs CBC & Chem 7: 08/06/20 13:07 08/08/20 05:33 Labs: Abnormal Lab Results - Last 24 Hours (Table) 08/07/20 08/08/20 Range/Units 18:11 05:33 Sodium 127 L (137-145) mmol/L BUN/Creatinine Ratio 23.75 H (12.00-20.00) Ratio Assessment and Plan Plan: 1. Hyponatremia. Sodium level on admission was 122 improved, hydrochlorothiazide is on hold. Patient is status post sodium bicarb 2 g tablet. Nephrology is following. Repeat sodium level at 2 PM, BMP in the morning I've the fluids decreased at 10 mL an hour from maintenance of 75 mL an hour 2. 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 Will be undergoing open heart surgery planned for Monday. Consult Dr. Navdeep Harrison 3. History of pulmonary fibrosis. Continue duo nebs and albuterol 4. Asthma. Continue ipratropium albuterol nebulizers 5. Hyperlipidemia. Continue simvastatin 20 mg daily 6. Hypertension. Continue isosorbide 30 mg daily, losartan 100 mg daily, me toprolol 25 mg twice a day 7. GI prophylaxis. Pantoprazole 8. DVT prophylaxis: SCDs
[2020-08-08] MEDS: SODIUM CHLORIDE 0.9% 500 ML 500 ML IV SCH (20:32)
[2020-08-08] MEDS: SENNOSIDES-DOCUSATE SODIUM 1 EACH TAB PO SCH (21:52)
[2020-08-09 06:29] LABS: Basophils % (A) 1 %; Eosinophils # (A) 0.2 k/uL (0-0.7); Eosinophils % (A) 3 %; HCT 38.2 % (34.0-46.0); HGB 13.1 gm/dL (11.4-16.0); Lymphocytes # (A) 2.3 k/uL (1.0-4.8); Lymphocytes % (A) 35 %; MCH 31.4 pg (25.0-35.0); MCHC 34.4 g/dL (31.0-37.0); MCV 91.5 fL (80.0-100.0); Mean Platelet Volume 6.8; Monocytes # (A) 0.5 k/uL (0-1.0); Monocytes % (A) 7 %; Neutrophils # (A) 3.5 k/uL (1.3-7.7); Neutrophils % (A) 52 %; Platelet Count 226 k/uL (150-450); RBC 4.18 m/uL (3.80-5.40); RDW 13.4 % (11.5-15.5); WBC 6.6 k/uL (3.8-10.6)
[2020-08-09] MEDS: ISOSORBIDE MONONITRATE ER 15 MG TAB PO SCH (08:01)
[2020-08-09] MEDS: ASPIRIN 81 MG PO SCH (08:02)
[2020-08-09] MEDS: ATORVASTATIN 20 MG TAB PO SCH (08:02)
[2020-08-09] MEDS: METOPROLOL TARTRATE 12.5 MG TAB PO SCH ×2 (08:02→22:12)
[2020-08-09] MEDS: LOSARTAN 50 MG TAB PO SCH ×3 (08:02→09:28)
[2020-08-09] MEDS: SENNOSIDES-DOCUSATE SODIUM 1 EACH TAB PO SCH ×2 (08:02→08:06)
[2020-08-09] MEDS ORDERED: MD COMMUNICATION TO PHARMACY 1 EACH MISC PO ONE (09:04)
[2020-08-09] MEDS: ACETAMINOPHEN TAB 325 MG TAB PO PRN ×2 (09:28→22:11)
[2020-08-09 09:59] LABS: African American GFR (CKD) 84.2 (60.0-200.0); Albumin 4.3 g/dL (3.80-4.90); Albumin/Globulin Ratio 2.39 (1.60-3.17); Anion Gap 5.8 mmol/L (4.00-12.00); BUN/Creat Ratio 17.5 Ratio (12.00-20.00); Calcium 9.4 mg/dL (8.7-10.3); Carbon Dioxide 29.2 mmol/L (21.6-31.8); Globulin 1.8 g/dL (1.6-3.3); Non-African American GFR(CKD) 72.6 (60.0-200.0); Potassium 4.5 mmol/L (3.5-5.5); Total Bilirubin 0.5 mg/dL (0.3-1.2); Total Protein 6.1 g/dL (6.2-8.2)
--- NOTE | 2020-08-09 10:10 | P.GSCN ---
History of Present Illness Consult date: 08/09/20 Reason for Consult: Known to us, anticipates CABG tomorrow Requesting physician: Monica Dubois History of present illness: This is a 75 year old female who follows on an outpatient basis with Dr. Rich Avila for primary care, Dr. Sloan for cardiology, and Dr. Guadalupe for pulmonary fibrosis. She has a previous medical history of pulmonary fibrosis, asthma, hypertension, hyperlipidemia, previous tobacco dependence and she quit 32 years ago, obesity, osteoarthritis, cervical stenosis post anterior cervical decompression, discectomy and fusion, TIA as a child age 11, and family history of premature coronary artery disease with father diagnosed in his early 50s. She has been experiencing increasing shortness of breath over the previous 6 weeks with minimal activity as well as occasionally at rest. She denies any chest pain but does complain of occasional chest heaviness which has improved since initiation of nitrates. She also complained of lower extremity edema which resolved with diuresis. She underwent stress testing which demonstrated anterior wall ischemia with small reversable defect. Transthoracic echo was also completed which showed EF 55%, mild AI, mild MR, mild TR. Ms. Alvarenga was recommended to undergo elective heart catheterization which was completed 07/27/2020 and which demonstrated left main stenosis with IVUS calculation 2.6 mm square, 40% mid LAD stenosis, and 30% mid RCA stenosis. PA pressure 20/4 with mean 8mmHg. Consultation was placed to Dr. Sethi from cardiac surgery and the patient was recommended to undergo coronary artery bypass surgery after obtaining pulmonary clearance from Dr. Guadalupe due to her pulmonary fibrosis. She came in for scheduled outpatient preoperative lab work August 05 and was found to be hyponatremic with sodium level 120. Ms. Alvarenga remained completely asymptomatic and had been taking thiazide diuretics. We instructed her to report to the emergency room for admission to evaluate her hyponatremia with nephrology consult. She was placed on 0.9 normal saline and thiazide diuretics were discontinued, with improvement in her sodium level. Dr. Sethi was consulted as the patient is known to us with plans for CABG 08/10/20. Review of Systems Review of systems was completed and was negative except as noted - Cardiovascular Reports as per HPI, Reports decreased exercise tolerance, Reports dyspnea on exertion, Reports leg edema, Reports shortness of breath Past Medical History Past Medical History: Asthma, Hyperlipidemia, Hypertension Additional Past Medical History / Comment(s): skin cancer with removals, arthri tis multiple joints, back and cervical pain, ?TIA in her teens-shows up on scan?, pulmonary fibrosis History of Any Multi-Drug Resistant Organisms: None Reported Past Surgical History: Cholecystectomy, Heart Catheterization, Tonsillectomy, Tubal Ligation Additional Past Surgical History / Comment(s): 2 cardiac caths without intervention, bilateral cataract removal with lens implants, skin cancer removals, cyst removed from neck, colonoscopy, cervical fusion Past Anesthesia/Blood Transfusion Reactions: No Reported Reaction Additional Past Anesthesia/Blood Transfusion Reaction / Comm: Pt has never received blood. Past Psychological History: No Psychological Hx Reported Additional Psychological History / Comment(s): Pt resides with her spouse. She drives. Smoking Status: Former smoker Past Alcohol Use History: Occasional Additional Past Alcohol Use History / Comment(s): Pt started smoking in 1961 and quit in 1981. She smoked one and half packs per day. Past Drug Use History: None Reported - Past Family History Brother(s) Family Medical History: Coronary Artery Disease (CAD) Additional Family Medical History / Comment(s): "bad heart" aneurysm Sister(s) Family Medical History: Cancer Additional Family Medical History / Comment(s): breast cancer Mother Family Medical History: Cancer, Coronary Artery Disease (CAD) Additional Family Medical History / Comment(s): Lymphoma, had a pacemaker. Mother at the age of 92yrs. Father Family Medical History: Coronary Artery Disease (CAD), Myocardial Infarction (MT) Additional Family Medical History / Comment(s): Father of a MT at the age of 63 yrs, diagnosed with CAD in his early 50s. Medications and Allergies Home Medications Medication Instructions Recorded Confirmed Type Ipratropium-Albuterol Nebulize 3 ml INHALATION RT-QID PRN 05/18/15 08/06/20 H istory [Duoneb 0.5 mg-3 mg/3 ml Soln] Losartan Potassium 100 mg PO DAILY 05/18/15 08/06/20 History Simvastatin [Zocor] 40 mg PO DAILY 05/18/15 08/06/20 History Aspirin EC [Ecotrin Low Dose] 81 mg PO DAILY 04/10/17 08/06/20 History Ibuprofen [Motrin] 800 mg PO TID PRN 12/05/17 08/06/20 History Nitroglycerin Sl Tabs [Nitrostat] 0.5 tab SUBLINGUAL Q5M PRN 07/22/20 08/06/20 History hydroCHLOROthiazide 25 mg PO DAILY 07/27/20 08/06/20 History Isosorbide Mononitrate ER [Imdur] 15 mg PO DAILY 08/05/20 08/06/20 History Albuterol Sulfate [Albuterol 2 puff PO RT-Q6H PRN 08/06/20 08/06/20 History Sulfate Hfa] Metoprolol Tartrate [Lopressor] 12.5 mg PO BID 08/06/20 08/06/20 History Allergies Allergy/AdvReac Type Severity Reaction Status Date / Time adhesive Allergy blisters Verified 08/06/20 13:48 latex Allergy Rash/Hives Verified 08/06/20 13:48 Surgical - Exam Vital Signs Temp Pulse Resp BP Pulse Ox 98.5 F 68 18 129/69 97 08/06/20 12:23 08/06/20 12:23 08/06/20 12:23 08/06/20 12:23 08/06/20 12:23 - General well developed, well nourished, no distress, no pain, obese - Eyes PERRL, normal ocular movement - ENT no hearing loss - Neck no masses, no bruits, trachea midline - Respiratory Lungs sounds clear bilaterally. Respirations even, nonlabored. Currently on room air with oxygen saturation 96%. Able to achieve 1000 mL on her incentive spirometry. No chest wall deformities. No clubbing or cyanosis present. - Cardiovascular S1, S2 present. Regular rate and rhythm, sinus rhythm on telemetry. Palpable peripheral pulses bilaterally. No edema present. No calf pain or tenderness noted. - Abdomen Abdomen: soft, non tender, bowel sounds - Genitourinary Deferred - Rectum Deferred - Integumentary no rash, no growths - Neurologic normal coordination, normal sensation - Musculoskeletal normal gait, normal posture - Psychiatric oriented to time, oriented to person, oriented to place, speech is normal, memory intact Results - Labs 08/09/20 05:33 08/08/20 05:33 - Imaging Chest x-ray: report reviewed, image reviewed EKG: image reviewed Assessment and Plan Assessment: 1. Coronary artery disease with left main disease, IVUS of left main 2.6 mm2 2. Hyponatremia, sodium level 120 just prior to admission, resolved 3. History of pulmonary fibrosis, asthma 4. Hypertension 5. Hyperlipidemia, treated, cholesterol 186, LDL 98 6. Previous tobacco dependence, preoperative FEV1 107% 7. Obesity 8. Osteoarthritis 9. Cervical stenosis post anterior cervical decompression, discectomy and fusion 10. TIA as a child around age 11 11. Family history of premature coronary artery disease with father diagnosed in his early 50s Plan: The patient was seen and examined at the bedside today as well as yesterday with Dr. Sethi. We recommended admission to the hospital and have been following her since she has been here. She denies any chest pain or shortness of breath. She is a little nervous about surgery for tomorrow but otherwise has no new complaints. Continue aspirin, statin, beta sisi therapy as well as Cozaar. Encourage ambulation and incentive spirometry use. Nothing to eat or drink af ter midnight in anticipation of myocardial revascularization with left internal mammary artery, endoscopic vein harvest, intraoperative transesophageal echocardiogram, and exclusion of the left atrial appendage tomorrow morning with Dr. Sethi. All preoperative testing has been completed, STS risk score was calculated and discussed with the patient. The patient did see Dr. Guadalupe and has obtained pulmonary clearance for surgery. More recommendations to follow postoperatively. Thank you Dr. Dubois for this consult Time with Patient: Greater than 30
--- NOTE | 2020-08-09 12:40 | P.CNPUL ---
History of Present Illness Consult date: 08/09/20 Requesting physician: Flores Sethi Reason for consult: other Chief complaint: Coronary artery disease History of present illness: This is a very pleasant 75-year-old female patient who follows with Dr. Carlos Avila as her primary care provider and has a history of hyperlipidemia, hypertension, osteoarthritis, former smoker and pulmonary fibrosis. She was recently found to have coronary artery disease including left main disease and is scheduled for coronary artery bypass grafting on 08/10/2020. She follows with Dr. Guadalupe in our office and was seen for preoperative clearance on 07/29/2020. Her lung function remains stable. FEV1 value 104% of predicted. She was cleared for surgery. During her preop evaluation she was found to be hyponatremic with a sodium of 120. She was admitted this weekend in preparation of her surgery. She is seen today in consultation on the regular medical floor. She is currently sitting up in a chair at the bedside. Awake and alert in no acute distress. No chest pain. No palpitations, lightheadedness or dizziness. No shortness of breath. Her sodium has been corrected to 138 today. White count 6.6. Hemoglobin 13.1. Creatinine 0.8. Chest x-ray from 08/05/2020 revealed evidence of interstitial lung disease/fibrosis but no acute pulmonary p rocess. She is maintaining O2 saturation in the mid to upper 90s on room air. Review of Systems REVIEW OF SYSTEMS: CONSTITUTIONAL: Denies any recent significant weight loss or weight gain. EYES: Denies change in vision. EARS, NOSE, MOUTH, THROAT: Denies headaches, denies sore throat. CARDIOVASCULAR: Denies chest pain, palpitations or syncopal episodes. RESPIRATORY: Denies shortness of breath, cough, congestion or hemoptysis. GASTROINTESTINAL: Denies change in appetite, denies abdominal pain GENITOURINARY: Denies hematuria, denies infections. MUSKULOSKELETAL: Denies pain, denies swelling. INTEGUMENTARY: Denies rash, denies eczema. NEUROLOGICAL: Denies recent memory loss, no recent seizure activity. PSYCHIATRIC: Denies anxiety, denies depression. HEMATOLOGIC/LYMPHATIC: Denies anemia, denies enlarged lymph nodes. Past Medical History Past Medical History: Asthma, Hyperlipidemia, Hypertension Additional Past Medical History / Comment(s): skin cancer with removals, arthritis multiple joints, back and cervical pain, ?TIA in her teens-shows up on scan?, pulmonary fibrosis History of Any Multi-Drug Resistant Organisms: None Reported Past Surgical History: Cholecystectomy, Heart Catheterization, Tonsillectomy, Tubal Ligation Additional Past Surgical History / Comment(s): 2 cardiac caths without intervention, bilateral cataract removal with lens implants, skin cancer removals, cyst removed from neck, colonoscopy, cervical fusion Past Anesthesia/Blood Transfusion Reactions: No Reported Reaction Additional Past Anesthesia/Blood Transfusion Reaction / Comment(s): Pt has never received blood. Past Psychological History: No Psychological Hx Reported Additional Psychological History / Comment(s): Pt resides with her spouse. She drives. Smoking Status: Former smoker Past Alcohol Use History: Occasional Additional Past Alcohol Use History / Comment(s): Pt started smoking in 1961 and quit in 1981. She smoked one and half packs per day. Past Drug Use History: None Reported - Past Family History Brother(s) Family Medical History: Coronary Artery Disease (CAD) Additional Family Medical History / Comment(s): "bad heart" aneurysm Sister(s) Family Medical History: Cancer Additional Family Medical History / Comment(s): breast cancer Mother Family Medical History: Cancer, Coronary Artery Disease (CAD) Additional Family Medical History / Comment(s): Lymphoma, had a pacemaker. Mother at the age of 92yrs. Father Family Medical History: Coronary Artery Disease (CAD), Myocardial Infarction (CO) Additional Family Medical History / Comment(s): Father of a CO at the age of 63 yrs, diagnosed with CAD in his early 50s. Medications and Allergies Home Medications Medication Instructions Recorded Confirmed Type Ipratropium-Albuterol Nebulize 3 ml INHALATION RT-QID PRN 05/18/15 08/06/20 History [Duoneb 0.5 mg-3 mg/3 ml Soln] Losartan Potassium 100 mg PO DAILY 05/18/15 08/06/20 History Simvastatin [Zocor] 40 mg PO DAILY 05/18/15 08/06/20 History Aspirin EC [Ecotrin Low Dose] 81 mg PO DAILY 04/10/17 08/06/20 History Ibuprofen [Motrin] 800 mg PO TID PRN 12/05/17 08/06/20 History Nitroglycerin Sl Tabs [Nitrostat] 0.5 tab SUBLINGUAL Q5M PRN 07/22/20 08/06/20 History hydroCHLOROthiazide 25 mg PO DAILY 07/27/20 08/06/20 History Isosorbide Mononitrate ER [Imdur] 15 mg PO DAILY 08/05/20 08/06/20 History Albuterol Sulfate [Albuterol 2 puff PO RT-Q6H PRN 08/06/20 08/06/20 History Sulfate Hfa] Metoprolol Tartrate [Lopressor] 12.5 mg PO BID 08/06/20 08/06/20 History Allergies Allergy/AdvReac Type Severity Reaction Status Date / Time adhesive Allergy blisters Verified 08/06/20 13:48 latex Allergy Rash/Hives Verified 08/06/20 13:48 Physical Exam Vitals: Vital Signs Temp Pulse Resp BP BP Pulse Ox 08/09/20 07:30 97.7 F 70 18 136/76 99 08/09/20 02:29 97.9 F 60 18 129/67 96 08/08/20 19:50 17 08/08/20 19:19 97.7 F 71 19 145/74 98 08/08/20 14:00 97.8 F 69 18 161/98 92 L Intake and Output 08/08/20 08/09/20 08/09/20 22:59 06:59 14:59 Intake Total 750 Balance 750 Intake: Intake, IV Titration 400 Amount Sodium Chloride 0.9% 1, 400 000 ml @ 75 mls/hr IV . [id number] TORIBIO Rx#:[id number] Oral 350 Other: Voiding Method Toilet # Voids 3 2 GENERAL EXAM: Alert, active, very pleasant 75-year-old female patient, on room air, comfortable in no apparent distress. HEAD: Normocephalic. EYES: Normal reaction of pupils, equal size. NOSE: Clear with pink turbinates. THROAT: No erythema or exudates. NECK: No masses, no JVD. CHEST: No chest wall deformity. LUNGS: Equal air entry with coarse crackles in the posterior bases. CVS: S1 and S2 normal with no audible murmur, regular rhythm. ABDOMEN: No hepatosplenomegaly, normal bowel sounds, no guarding or rigidity. SPINE: No scoliosis or deformity SKIN: No rashes CENTRAL NERVOUS SYSTEM: No focal deficits, tone is normal in all 4 extremities. EXTREMITIES: There is no peripheral edema. No clubbing, no cyanosis. Peripheral pulses are intact. Results - Laboratory Findings CBC and BMP: 08/09/20 05:33 08/09/20 05:33 Abnormal lab findings: Abnormal Labs 08/06/20 08/06/20 08/06/20 13:07 13:07 21:05 Sodium 122 L 124 L Chloride 86 L BUN 20 H BUN/Creatinine Ratio Glucose 106 H Total Protein Urine Blood Trace H Ur Leukocyte Esterase Small H Urine Mucus Rare H 08/07/20 08/07/20 08/07/20 05:21 14:41 18:11 Sodium 125 L 126 L 127 L Chloride 90 L BUN 20 H BUN/Creatinine Ratio Glucose Total Protein Urine Blood Ur Leukocyte Esterase Urine Mucus 08/08/20 08/09/20 05:33 05:33 Sodium Chloride BUN BUN/Creatinine Ratio 23.75 H Glucose Total Protein 6.1 L Urine Blood Ur Leukocyte Esterase Urine Mucus Assessment and Plan Assessment: 1 Hyponatremia suspect secondary to hypovolemia and thiazide diuretics. Correct ed, current sodium 138. 2 Coronary artery disease including left main disease, plan is for coronary artery bypass revascularization on 08/10/2020. 3 History of mild pulmonary fibrosis dating back to 2017. FEV1 value 101% of predicted. 4 Obesity 5 Hypertension 6 Hyperlipidemia 7 Arthritis 8 Former smoker Plan: The patient was seen and evaluated by Dr. Harrison Cleared for surgery from the pulmonary standpoint Educated regarding the use of the incentive spirometer We will follow in the immediate postoperative period Plan is for early extubation per protocol if tolerated We will continue to follow and make further recommendations based on her clinical status I, the cosigning physician, performed a history & physical examination of the patient. Lungs sounds with coarse crackles in the bilateral posterior bases. Maintaining good O2 saturations in the 90s on room air. I discussed the assessment and plan of care with my nurse practitioner, Aparna Colunga. I attest to the above consultation as dictated by her. Time with Patient: Greater than 30
--- NOTE | 2020-08-09 13:58 | P.PN ---
Subjective Progress Note Date: 08/09/20 HISTORY OF PRESENT ILLNESS This is a 75-year-old female patient of Dr. Avila and Dr. Garcia with a past medical history of pulmonary fibrosis, asthma, hypertension, hyperlipidemia, obesity, osteoarthritis, cervical stenosis status post anterior cervical decompression, discectomy and fusion. Patient recently underwent stress testing which demonstrated anterior wall ischemia with small reversible defect. It was recommended to undergo heart catheterization which was completed and showed calcified coronary artery, significant distal left main by IVUS, mild to moderate disease of the left anterior descending artery. Transthoracic echo was completed showed EF of 55%, mild mitral regurgitation, mild tricuspid regurgitation. Patient was then referred for coronary artery bypass grafting. During her outpatient preoperative workup patient was noted to have hyponatremia with sodium level of 120. She was advised to go to the emergency department to be admitted to correct her sodium level. Patient reports she's asymptomatic, she denies any chest pain, palpitations, shortness of breath, fever, chills, no nausea, vomiting, diarrhea, or diarrhea. Consult placed for nephrology, she was started on 0.9 normal saline at 75 mL per hour. 08/07: Patient has been afebrile, heart rate 62, blood pressure 132/70, pulse ox 90% on room air. Sodium today is at 125. Potassium 4.0, chloride 90, CO2 20, BUN 20 creatinine 0.7. Patient is followed by nephrology and received sodium chloride tablet 2 g once this morning. Repeat sodium level at 2 PM, cortisol level ordered and TSH. Patient states that she is feeling well today. She denies any lightheadedness or dizziness. No chest pain or shortness of breath. She is scheduled for open heart surgery on Monday and anticipates that she will be here through the weekend. 08/08 sodium is much better, instructions were for discontinuation of IV fluids, currently running at 75 mL an hour, sodium 135, seen by nephrology, patient is scheduled to have open heart surgery on Monday, and the would consult Dr. Sethi, and Dr. Harrison, who would assist with preop CABG management, patient denies any nausea vomiting, blood pressure is significantly much better today, no chest pain no difficulty breathing, but pressure fluctuates between 99 systolic to 161 systolic, heart rate stable at 60-69, creatinine at 0.08 urinalysis negative, patient continues to be off hydrochlorothiazide 08/09 patient feels well today, no new concerns of chest pain shortness of breath no lightheadedness no dizziness, no GI losses no pleurisy, no dysuria. Patient's serum sodium is 138, electrolytes are normal creatinine is 0.8, expected to proceed with CABG as scheduled for August 10Monday morning. board, comes felt with cardiology to assist with postcardiac management in the morning. She will be made nothing by mouth post midnight tonight REVIEW OF SYSTEMS Constitutional: Reports fatigue, Denies chills, Denies fever, Denies lethargy, Denies malaise, Denies weakness Ears, nose, mouth and throat: Denies headache, Denies nasal congestion, Denies nasal discharge, Denies sinus pain, Denies sinus pressure, Denies sore throat Cardiovascular: Denies chest pain, Denies edema, Denies irregular heart beat, Denies leg edema, Denies orthopnea, Denies palpitations, Denies shortness of breath, Denies syncope Respiratory: Denies congestion, Denies cough, Denies pain, Denies respiratory infections, Denies wheezing Gastrointestinal: Denies abdominal pain, Denies constipation, Denies diarrhea, Denies dyspepsia, Denies heartburn, Denies hematemesis, Denies loss of appetite, Denies nausea, Denies vomiting Genitourinary: Denies dysuria, Denies hematuria, Denies urgency Musculoskeletal: Denies arm numbness/tingling, Denies atrophy, Denies fractures, Denies frequent falls, Denies gait dysfunction, Denies myalgias, Denies neck pain, Denies neck stiffness Integumentary: Denies dryness, Denies lesions, Denies pruritus, Denies sores, Denies wounds Neurological: Denies confusion, Denies gait dysfunction, Denies headaches, Denies paralysis, Denies seizures, Denies spasticity, Denies syncope, Denies vertigo Psychiatric: Denies anxiety, Denies confusion, Denies irritability, Denies mood swings, Denies paranoia, Denies suicidal ideation Endocrine: Denies excessive sweating, Denies fatigue, Denies high blood sugars, Denies palpitations, Denies polyphagia, Denies polyuria, Denies thyroid mass Objective - Vital Signs Vital signs: Vital Signs Temp 97.7 F 08/09/20 07:30 Pulse 70 08/09/20 07:30 Resp 18 08/09/20 07:30 BP 136/76 08/09/20 07:30 Pulse Ox 99 08/09/20 07:30 Intake & Output 08/08/20 08/09/20 08/09/20 18:59 06:59 18:59 Intake Total 750 Balance 750 Intake: Intake, IV Titration 400 Amount Sodium Chloride 0.9% 1, 400 000 ml @ 75 mls/hr IV . [id number] TORIBIO Rx#:[id number] Oral 350 Other: Voiding Method Toilet Toilet # Voids 3 2 - Constitutional General appearance: Present: cooperative, no acute distress - EENT Eyes: Present: EOMI, PERRLA, dentition normal ENT: Present: NA/AT - Neck Neck: Present: normal ROM - Respiratory Respiratory: bilateral: CTA, negative: diminished, dullness, rales - Cardiovascular Rhythm: regular Heart sounds: normal: S1, S2 Abnormal Heart Sounds: Absent: systolic murmur, diastolic murmur, rub, S3 Gallop, S4 Gallop, click, other - Gastrointestinal General gastrointestinal: Present: normal bowel sounds, soft - Integumentary Integumentary: Present: normal, normal turgor - Musculoskeletal Musculoskeletal: Present: gait normal, strength equal bilaterally - Psychiatric Psychiatric: Present: A&O x's 3, appropriate affect, intact judgment & insight - Labs CBC & Chem 7: 08/09/20 05:33 08/09/20 05:33 Labs: Abnormal Lab Results - Last 24 Hours (Table) 08/09/20 Range/Units 05:33 Total Protein 6.1 L (6.2-8.2) g/dL Assessment and Plan Plan: 1. Hyponatremia. Sodium level on admission was 122 improved, hydrochlorothiazide is on hold. Patient is status post sodium bicarb 2 g tablet. Nephrology is following. Repeat sodium level at 2 PM, BMP in the morning I've the fluids decreased at 10 mL an hour from maintenance of 75 mL an hour 2. 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 Will be undergoing open heart surgery planned for Monday. Consult Dr. Navdeep Harrison incentive spirometry started. Consult with Dr. Harrison for postop CABG management scheduled for 08/10/2020 3. History of pulmonary fibrosis. Continue duo nebs and albuterol 4. Asthma. Continue ipratropium albuterol nebulizers 5. Hyperlipidemia. Continue simvastatin 20 mg daily 6. Hypertension. Continue isosorbide 30 mg daily, losartan 100 mg daily, metop rolol 25 mg twice a day 7. GI prophylaxis. Pantoprazole 8. DVT prophylaxis: SCDs
[2020-08-09] MEDS: SODIUM CHLORIDE 0.9% 500 ML 500 ML IV SCH (15:12)
[2020-08-09 15:15] LABS: Hemoglobin A1C 5.5 % (4.0-6.0)
[2020-08-09] MEDS: MUPIROCIN 2% OINT 22 GM TUBE NASAL SCH (21:44)
[2020-08-10] MEDS ORDERED: PROTAMINE SULFATE 10 MG/ML 25 ML VIAL IV ONE ×3 (05:00→07:46)
[2020-08-10] MEDS ORDERED: ATORVASTATIN 10 MG TAB PO ONE ×2 (05:00)
[2020-08-10] MEDS ORDERED: NOREPINEPHRINE 4 MG in SODIUM CHLORIDE 0.9% 250 ML IV ONE (05:00)
[2020-08-10] MEDS ORDERED: HEPARIN SODIUM 1,000 UN/ML (10ML VL) IV ONE ×2 (05:00)
[2020-08-10] MEDS ORDERED: NITROGLYCERIN-D5W PMX 50 MG in DEXTROSE/WATER 1 250ML.BAG IV ONE (05:00)
[2020-08-10] MEDS ORDERED: ceFAZolin 1,000 MG in SODIUM CHLORIDE 0.9% IRRIGATIO 1,000 ML IRRIGATION ONE ×2 (05:00)
[2020-08-10] MEDS ORDERED: DEXTROSE 5% IN WATER 1,000 ML with POTASSIUM CHLORIDE 110 MEQ, MAGNESIUM SULFATE 16 MEQ... IV SCH ×5 (05:00)
[2020-08-10] MEDS ORDERED: LACTATED RINGERS 1,000 ML IV SCH (05:00)
[2020-08-10] MEDS ORDERED: ALBUMIN HUMAN 25% 50 ML in EMPTY BAG 1 BAG IVPB ONE (05:00)
[2020-08-10] MEDS ORDERED: MANNITOL 25% 12.5 GM/50 ML VIAL IV ONE ×3 (05:00)
[2020-08-10] MEDS ORDERED: ASPIRIN 325 MG TAB PO ONE ×2 (05:00)
[2020-08-10] MEDS ORDERED: CALCIUM CHLORIDE 100 MG/ML 10 ML SYRINGE IVP ONE (05:00)
[2020-08-10] MEDS ORDERED: PROTAMINE SULFATE 250 MG in EMPTY BAG 1 BAG IV ONE (05:00)
[2020-08-10] MEDS ORDERED: METOPROLOL TARTRATE 12.5 MG TAB PO ONE ×2 (05:00)
[2020-08-10] MEDS ORDERED: ALBUMIN HUMAN 25% 50 ML IV ONE (05:00)
[2020-08-10] MEDS ORDERED: CARDIOPLEGIC SOLN (K+ 16 MEQ/L 1,000 ML with SODIUM BICARB (1 MEQ/ML) 20 ML, LIDOCAINE ... PERFUSION ONE ×3 (05:00)
[2020-08-10] MEDS ORDERED: ALBUMIN HUMAN 5% 500 ML IVPB ONE (05:00)
[2020-08-10] MEDS ORDERED: INSULIN REGULAR 100 UNIT in SODIUM CHLORIDE 0.9% 100 ML IV SCH ×2 (05:00→14:15)
[2020-08-10] MEDS ORDERED: NOREPINEPHRINE 4 MG in SODIUM CHLORIDE 0.9% 250 ML IV SCH (05:00)
[2020-08-10] MEDS ORDERED: PROPOFOL IV ONE (05:00)
[2020-08-10] MEDS ORDERED: MAGNESIUM SULFATE SYG 4.06 MEQ/ML SYRINGE IV ONE (05:00)
[2020-08-10] MEDS ORDERED: LACTATED RINGERS 1,000 ML IV ONE (05:00)
[2020-08-10] MEDS ORDERED: HEPARIN SODIUM,PORCINE 5,000 UNIT in SODIUM CHLORIDE 0.9% 500 ML 500 ML IV ONE ×4 (05:00)
[2020-08-10] MEDS ORDERED: SODIUM BICARB 8.4% 50 ML SYR (1 MEQ/ML) IV ONE ×2 (05:00)
[2020-08-10] MEDS ORDERED: SODIUM CHLORIDE 0.9% 1,000 ML IV ONE (05:00)
[2020-08-10] MEDS ORDERED: CHLORHEXIDINE GLUCONATE 15 ML CUP MUCOUS MEM ONE ×2 (05:00)
[2020-08-10] MEDS ORDERED: CLEVIDIPINE BUTYRATE 25 MG in EMPTY BAG 1 BAG IV ONE (05:00)
[2020-08-10] MEDS ORDERED: PHENYLEPHRINE 10 MG/ML VIAL IV ONE ×2 (05:00)
[2020-08-10] MEDS ORDERED: DEXTROSE 5% IN WATER 1,000 ML with POTASSIUM CHLORIDE 110 MEQ, MAGNESIUM SULFATE 16 MEQ... IV ONE ×5 (05:00)
[2020-08-10] MEDS ORDERED: CALCIUM CHLORIDE 100 MG/ML 10 ML SYRINGE IV ONE (05:00)
[2020-08-10] MEDS ORDERED: CLEVIDIPINE BUTYRATE 25 MG in EMPTY BAG 1 BAG IV SCH (05:00)
[2020-08-10] MEDS ORDERED: NITROGLYCERIN-D5W PMX 50 MG in DEXTROSE/WATER 1 250ML.BAG IV SCH ×2 (05:00→14:15)
[2020-08-10] MEDS ORDERED: NITROGLYCERIN-D5W PMX 25 MG/250 ML BTL IV ONE ×2 (05:00)
[2020-08-10] MEDS ORDERED: DEXTROSE 5% IN WATER 1,000 ML with POTASSIUM CHLORIDE 25 MEQ, SODIUM CHLORIDE 4MEQ/ML V... IRRIGATION ONE ×6 (05:00)
[2020-08-10] MEDS ORDERED: INSULIN REGULAR 100 UNIT in SODIUM CHLORIDE 0.9% 100 ML IV ONE (05:00)
[2020-08-10] MEDS ORDERED: DEXTROSE 5% IN WATER 1,000 ML with POTASSIUM CHLORIDE 25 MEQ, SODIUM CHLORIDE 4MEQ/ML V... IV SCH ×6 (05:00)
[2020-08-10] MEDS ORDERED: ALBUMIN HUMAN 5% 500 ML in EMPTY BAG 1 BAG IVPB ONE ×6 (05:00)
[2020-08-10] MEDS ORDERED: TRANEXAMIC ACID 2,000 MG in SODIUM CHLORIDE 0.9% 80 ML IV ONE ×4 (05:00)
[2020-08-10] MEDS ORDERED: PAPAVERINE 360 MG in SODIUM CHLORIDE 0.9% 90 ML IV ONE ×2 (05:00)
[2020-08-10] MEDS ORDERED: MAGNESIUM SULFATE MG 500 MG/ML IV ONE (05:00)
[2020-08-10] MEDS ORDERED: PHENYLEPHRINE 40 MG in SODIUM CHLORIDE 0.9% 250 ML IV ONE ×4 (05:00)
[2020-08-10 06:07] LABS: Basophils # (A) 0.1 k/uL (0-0.2); Basophils % (A) 1 %; Eosinophils # (A) 0.2 k/uL (0-0.7); Eosinophils % (A) 3 %; HCT 37.4 % (34.0-46.0); HGB 12.9 gm/dL (11.4-16.0); Lymphocytes % (A) 31 %; MCH 31.1 pg (25.0-35.0); MCHC 34.5 g/dL (31.0-37.0); MCV 90.1 fL (80.0-100.0); Mean Platelet Volume 6.7; Monocytes # (A) 0.5 k/uL (0-1.0); Monocytes % (A) 7 %; Neutrophils # (A) 3.6 k/uL (1.3-7.7); Neutrophils % (A) 55 %; Platelet Count 224 k/uL (150-450); RBC 4.15 m/uL (3.80-5.40); RDW 13.1 % (11.5-15.5); WBC 6.5 k/uL (3.8-10.6)
[2020-08-10] MEDS ORDERED: IV FLUID CONTINUATION 1,000 ML IV ONE (06:24)
[2020-08-10] MEDS ORDERED: HEPARIN SODIUM,PORCINE 10,000 UNIT/ML 1 ML VIAL ONE (07:46)
[2020-08-10] MEDS ORDERED: TRANEXAMIC ACID 1,000 MG/10 ML VIAL ONE (07:46)
[2020-08-10] MEDS ORDERED: LIDOCAINE 2% SYG (PF) 100 MG/5 ML ONE (07:46)
[2020-08-10] MEDS ORDERED: ELECTROLYTE-R (PH 7.4) 1,000 ML IV.SOLN IV ONE (07:46)
[2020-08-10] MEDS ORDERED: PHENYLEPHRINE-0.9% NACL SYG 1,000 MCG/10 ML SYRINGE ONE (07:46)
[2020-08-10] MEDS ORDERED: PROPOFOL 10 MG/ML 20 ML VIAL IV ONE (07:46)
[2020-08-10] MEDS ORDERED: MIDAZOLAM 2 MG/2 ML VIAL ONE (07:46)
[2020-08-10] MEDS ORDERED: MAGNESIUM SULFATE 4 MEQ/ML 10ML VIAL ONE (07:46)
[2020-08-10] MEDS ORDERED: VECURONIUM 10 MG VIAL IV ONE (07:46)
[2020-08-10] MEDS ORDERED: SODIUM CHLORIDE 0.9% 250 ML BAG ONE (07:46)
[2020-08-10] MEDS ORDERED: fentaNYL (PF) 50 MCG/ML 50 ML VIAL ONE (07:46)
[2020-08-10] MEDS ORDERED: NITROGLYCERIN-D5W PMX 50 MG/250 ML BOTTLE IV ONE (07:46)
[2020-08-10] MEDS ORDERED: SODIUM CHLORIDE 0.9% IRRIG 1,000 ML BTL IRRIGATION ONE (07:46)
[2020-08-10 08:18] LABS: ABG Glucose Whole Blood 88 mg/dL (75-99); ABG HCO3 25 mmol/L (21-25); ABG Hematocrit 36 % (34.0-46.0); ABG Ionized Calcium 4.8 mg/dL (4.5-5.3); ABG Lactic Acid Whole Blood 0.8 mmol/L (0.5-1.6); ABG PCO2 37 mmHg (35-45); ABG PH 7.44 (7.35-7.45); ABG Potassium Whole Blood 4.1 mmol/L (3.4-4.5); ABG Sodium Whole Blood 135 mmol/L (135-146); ABG TCO2 26 mmol/L (19-24)
[2020-08-10 08:47] LABS: African American GFR (CKD) 98.9 (60.0-200.0); Albumin 4.2 g/dL (3.80-4.90); Albumin/Globulin Ratio 2.33 (1.60-3.17); Anion Gap 5.2 mmol/L (4.00-12.00); BUN/Creat Ratio 18.57 Ratio (12.00-20.00); Calcium 9.6 mg/dL (8.7-10.3); Carbon Dioxide 29.8 mmol/L (21.6-31.8); Globulin 1.8 g/dL (1.6-3.3); Non-African American GFR(CKD) 85.4 (60.0-200.0); Potassium 4.7 mmol/L (3.5-5.5); Total Bilirubin 0.5 mg/dL (0.3-1.2)
[2020-08-10 10:19] LABS: ABG Base Excess 0.7 mmol/L; ABG Glucose Whole Blood 103 mg/dL (75-99); ABG HCO3 25 mmol/L (21-25); ABG Hematocrit 31 % (34.0-46.0); ABG Ionized Calcium 4.8 mg/dL (4.5-5.3); ABG Lactic Acid Whole Blood 1.3 mmol/L (0.5-1.6); ABG Oxygen Saturation 99.9 % (94-97); ABG PCO2 37 mmHg (35-45); ABG PH 7.44 (7.35-7.45); ABG PO2 225 mmHg (83-108); ABG Sodium Whole Blood 134 mmol/L (135-146); ABG TCO2 26 mmol/L (19-24)
--- NOTE | 2020-08-10 10:37 | P.PN ---
Subjective Progress Note Date: 08/10/20 HISTORY OF PRESENT ILLNESS This is a 75-year-old female patient of Dr. Avila and Dr. Garcia with a past medical history of pulmonary fibrosis, asthma, hypertension, hyperlipidemia, obesity, osteoarthritis, cervical stenosis status post anterior cervical decompression, discectomy and fusion. Patient recently underwent stress testing which demonstrated anterior wall ischemia with small reversible defect. It was recommended to undergo heart catheterization which was completed and showed calcified coronary artery, significant distal left main by IVUS, mild to moderate disease of the left anterior descending artery. Transthoracic echo was completed showed EF of 55%, mild mitral regurgitation, mild tricuspid regurgitation. Patient was then referred for coronary artery bypass grafting. During her outpatient preoperative workup patient was noted to have hyponatremia with sodium level of 120. She was advised to go to the emergency department to be admitted to correct her sodium level. Patient reports she's asymptomatic, she denies any chest pain, palpitations, shortness of breath, fever, chills, no nausea, vomiting, diarrhea, or diarrhea. Consult placed for nephrology, she was started on 0.9 normal saline at 75 mL per hour. 08/07: Patient has been afebrile, heart rate 62, blood pressure 132/70, pulse ox 90% on room air. Sodium today is at 125. Potassium 4.0, chloride 90, CO2 20, BUN 20 creatinine 0.7. Patient is followed by nephrology and received sodium chloride tablet 2 g once this morning. Repeat sodium level at 2 PM, cortisol level ordered and TSH. Patient states that she is feeling well today. She denies any lightheadedness or dizziness. No chest pain or shortness of breath. She is scheduled for open heart surgery on Monday and anticipates that she will be here through the weekend. 08/08 sodium is much better, instructions were for discontinuation of IV fluids, currently running at 75 mL an hour, sodium 135, seen by nephrology, patient is scheduled to have open heart surgery on Monday, and the would consult Dr. Sethi, and Dr. Harrison, who would assist with preop CABG management, patient denies any nausea vomiting, blood pressure is significantly much better today, no chest pain no difficulty breathing, but pressure fluctuates between 99 systolic to 161 systolic, heart rate stable at 60-69, creatinine at 0.08 urinalysis negative, patient continues to be off hydrochlorothiazide 08/09 patient feels well today, no new concerns of chest pain shortness of breath no lightheadedness no dizziness, no GI losses no pleurisy, no dysuria. Patient's serum sodium is 138, electrolytes are normal creatinine is 0.8, expected to proceed with CABG as scheduled for August 10Monday morning. board, comes felt with cardiology to assist with postcardiac management in the morning. She will be made nothing by mouth post midnight tonight 08/10: Patient is gone this morning for CABG. Patient was not seen and evaluated at this time. REVIEW OF SYSTEMS Constitutional: Reports fatigue, Denies chills, Denies fever, Denies lethargy, Denies malaise, Denies weakness Ears, nose, mouth and throat: Denies headache, Denies nasal congestion, Denies nasal discharge, Denies sinus pain, Denies sinus pressure, Denies sore throat Cardiovascular: Denies chest pain, Denies edema, Denies irregular heart beat, Denies leg edema, Denies orthopnea, Denies palpitations, Denies shortness of breath, Denies syncope Respiratory: Denies congestion, Denies cough, Denies pain, Denies respiratory infections, Denies wheezing Gastrointestinal: Denies abdominal pain, Denies constipation, Denies diarrhea, Denies dyspepsia, Denies heartburn, Denies hematemesis, Denies loss of appetite, Denies nausea, Denies vomiting Genitourinary: Denies dysuria, Denies hematuria, Denies urgency Musculoskeletal: Denies arm numbness/tingling, Denies atrophy, Denies fractures, Denies frequent falls, Denies gait dysfunction, Denies myalgias, Denies neck pain, Denies neck stiffness Integumentary: Denies dryness, Denies lesions, Denies pruritus, Denies sores, Denies wounds Neurological: Denies confusion, Denies gait dysfunction, Denies headaches, Denies paralysis, Denies seizures, Denies spasticity, Denies syncope, Denies vertigo Psychiatric: Denies anxiety, Denies confusion, Denies irritability, Denies mood swings, Denies paranoia, Denies suicidal ideation Endocrine: Denies excessive sweating, Denies fatigue, Denies high blood sugars, Denies palpitations, Denies polyphagia, Denies polyuria, Denies thyroid mass PHYSICAL EXAMINATION Gen: This is a 75-year-old female. She is sitting on the edge of the bed and appears to be comfortable and in no acute distress. HEENT: Head is atraumatic, normocephalic. Pupils equal, round. Sclerae is anicteric. NECK: Supple. No JVD. No lymphadenopathy. No thyromegaly. LUNGS: Clear to auscultation. No wheezes or rhonchi. No intercostal retractions. HEART: Regular rate and rhythm. No murmur. ABDOMEN: Soft. Bowel sounds are present. No masses. No tenderness. EXTREMITIES: No pedal edema. No calf tenderness. Dorsalis pedis palpable bilaterally. NEUROLOGICAL: Patient is awake, alert and oriented x3. Cranial nerves 2 through 12 are grossly intact. ASSESSMENT AND PLAN 1. Hyponatremia. Sodium level 122, hydrochlorothiazide is on hold. Patient is status post sodium bicarb 2 g tablet. Nephrology is following. 2. 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 Will be undergoing open heart surgery planned for Monday. 3. History of pulmonary fibrosis. Continue duo nebs and albuterol 4. Asthma. Continue ipratropium albuterol nebulizers 5. Hyperlipidemia. Continue simvastatin 20 mg daily 6. Hypertension. Continue isosorbide 30 mg daily, losartan 100 mg daily, metoprolol 25 mg twice a day 7. GI prophylaxis. Pantoprazole 8. DVT prophylaxis: SCDs DISCHARGE PLAN TBD. Impression and plan of care have been directed as dictated by the signing physician. Monica Fragoso nurse practitioner acting as scribe for signing physician. Objective - Vital Signs Vital signs: Vital Signs Temp 98 F 08/10/20 06:25 Pulse 69 08/10/20 06:25 Resp 16 08/10/20 02:21 BP 149/81 08/10/20 06:25 Pulse Ox 98 08/10/20 06:25 Intake & Output 08/09/20 08/10/20 08/10/20 18:59 06:59 18:59 Intake Total 100 Balance 100 Intake: IV 100 Other: Voiding Method Toilet # Voids 4 4 - Labs CBC & Chem 7: 08/10/20 05:25 08/10/20 05:25 Labs: Abnormal Lab Results - Last 24 Hours (Table) 08/05/20 08/09/20 Range/Units 11:00 05:33 Total Protein 6.1 L (6.2-8.2) g/dL Crossmatch See Detail
[2020-08-10 11:05] LABS: ABG Base Excess -1.3 mmol/L; ABG Glucose Whole Blood 107 mg/dL (75-99); ABG HCO3 23 mmol/L (21-25); ABG Lactic Acid Whole Blood 1.5 mmol/L (0.5-1.6); ABG PCO2 34 mmHg (35-45); ABG PH 7.43 (7.35-7.45); ABG PO2 349 mmHg (83-108); ABG Potassium Whole Blood 3.8 mmol/L (3.4-4.5); ABG Sodium Whole Blood 130 mmol/L (135-146); ABG TCO2 24 mmol/L (19-24)
[2020-08-10 11:33] LABS: ABG Glucose Whole Blood 219 mg/dL (75-99); ABG HCO3 25 mmol/L (21-25); ABG Ionized Calcium 4.2 mg/dL (4.5-5.3); ABG Lactic Acid Whole Blood 1.4 mmol/L (0.5-1.6); ABG PCO2 40 mmHg (35-45); ABG PO2 419 mmHg (83-108); ABG Sodium Whole Blood 129 mmol/L (135-146); ABG TCO2 26 mmol/L (19-24)
--- NOTE | 2020-08-10 11:36 | P.ANPRN ---
Procedure Note - Anesthesia - Invasive Line Right Central Line Date of Procedure: 08/10/20 Time of Procedure: 07:30 Location of Patient: PreOp Preparation: Sterile Prep, Sterile Dressing Ultrasound Used: Yes Purpose - Visualization and Identification of Vasculature: Yes Needle Guage: 18 Image Stored and Saved: Yes Narrative: Central line placement per sterile protocol utilized. Right [place] Date of Procedure: 08/10/20 Time of Procedure: 07:40 Preparation: Sterile Prep, Sterile Dressing Narrative: [place] catheter had all ports flushed and balloon tested. Catheter advanced to 20 cm and the balloon was inflated. The catheter was advanced until RV and then PA wave forms were obtained. The balloon was deflated and the catheter was secured at 41 cm. Right Arterial Line Date of Procedure: 08/10/20 Time of Procedure: 07:10 Location of Patient: PreOp Preparation: Sterile Prep, Sterile Dressing Arterial Line Location: Radial Ultrasound Used: No Needle Guage: 20 Narrative: R radial arterial line was placed by TELESCOPE OPERATOR under sterile conditions.
[2020-08-10 12:16] LABS: ABG Base Excess -2.4 mmol/L; ABG Glucose Whole Blood 178 mg/dL (75-99); ABG HCO3 22 mmol/L (21-25); ABG Ionized Calcium 4.3 mg/dL (4.5-5.3); ABG PCO2 38 mmHg (35-45); ABG PH 7.38 (7.35-7.45); ABG Potassium Whole Blood 4.3 mmol/L (3.4-4.5); ABG Sodium Whole Blood 131 mmol/L (135-146); ABG TCO2 24 mmol/L (19-24)
[2020-08-10 12:32] LABS: ABG PO2 >420 mmHg (83-108)
[2020-08-10 12:33] LABS: ABG Hematocrit 20 % (34.0-46.0)
[2020-08-10 12:34] LABS: ABG Hematocrit 20 % (34.0-46.0)
[2020-08-10 12:35] LABS: ABG Hematocrit 21 % (34.0-46.0); ABG Lactic Acid Whole Blood 2.6 mmol/L (0.5-1.6); ABG PO2 >420 mmHg (83-108)
[2020-08-10 12:47] LABS: ABG Base Excess -2.6 mmol/L; ABG Glucose Whole Blood 134 mg/dL (75-99); ABG HCO3 23 mmol/L (21-25); ABG Hematocrit 26 % (34.0-46.0); ABG Ionized Calcium 4.8 mg/dL (4.5-5.3); ABG PCO2 42 mmHg (35-45); ABG PH 7.35 (7.35-7.45); ABG PO2 147 mmHg (83-108); ABG Potassium Whole Blood 3.8 mmol/L (3.4-4.5); ABG Sodium Whole Blood 133 mmol/L (135-146); ABG TCO2 24 mmol/L (19-24)
[2020-08-10 13:07] LABS: ABG Lactic Acid Whole Blood 2.9 mmol/L (0.5-1.6)
--- NOTE | 2020-08-10 13:21 | P.ANPRN ---
Procedure Note - Anesthesia - ROBBIE Intraop Pre Bypass ROBBIE Intraop - Anesthesia Indication: CAD, AI, MR Date of Procedure: 08/10/20 Pre-operative Diagnosis: CAD Post-operative Diagnosis: Same Surgeon: Flores Sethi Left Ventricle: EF 65% Ejection Fraction: Normal Regional Wall Motion Abnormalities: None Left Ventricle Hypertrophy: Yes R. Ventricle Function: Normal Anatomy: Trileaflet Aortic Stenosis: None Aortic Regurgitation: Trace Mitral Stenosis: None Mitral Regurgitation: Trace Tricuspid Stenosis: None Tricuspid Regurgitation: Trace Pulmonic Stenosis: None Pulmonic Regurgitation: Trace R. Atrial Dilation: No R. Atrial PFO: No L. Atrial Dilation: No Aortic Dissection: No Aortic Calcification: Moderate Plural Effusion: None - ROBBIE Intraop Post Bypass ROBBIE Intraop Post Bypass Procedure Performed: EF 65% Ejection Fraction: Normal Regional Wall Motion Abnormalities: None R. Ventricle Function: Normal Aortic Valve: Unchanged Mitral Valve: Unchanged Tricuspid: Unchanged Pulmonic: Unchanged Aortic Dissection: No
[2020-08-10] MEDS: NOREPINEPHRINE 4 MG in SODIUM CHLORIDE 0.9% 250 ML IV SCH (13:40)
[2020-08-10] MEDS: SODIUM CHLORIDE 0.9% 1,000 ML IV SCH (13:40)
[2020-08-10 13:59] LABS: Glucose,Whole Blood 113 mg/dL (75-99)
[2020-08-10 14:02] LABS: ABG Base Excess -2.2 mmol/L; ABG HCO3 24 mmol/L (21-25); ABG PCO2 44 mmHg (35-45); ABG PH 7.34 (7.35-7.45); ABG PO2 243 mmHg (83-108); ABG TCO2 25 mmol/L (19-24); Allen Test Performed? Yes
--- NOTE | 2020-08-10 14:10 | OP ---
OPERATIVE REPORT DATE OF THE SURGERY: 08/10/2020. SURGEON: Dr. Flores Sethi. PORCELAIN ENAMEL SPRAYER: Kar Ha, nurse practitioner and Baylee Agrawal RN. PREOPERATIVE DIAGNOSES: 1. Left main coronary artery disease. 2. Preserved systolic function. 3. Pulmonary fibrosis. 4. Hypertension. 5. Hyperlipidemia. 6. Preop hyponatremia, warranting admission for correction. POSTOPERATIVE DIAGNOSIS: 1. Left main coronary artery disease. 2. Preserved systolic function. 3. Pulmonary fibrosis. 4. Hypertension. 5. Hyperlipidemia. 6. Preop hyponatremia, warranting admission for correction. PROCEDURES: 1. Double-vessel coronary artery bypass grafting using the left internal mammary artery to the left anterior descending artery, reverse saphenous vein graft from the aorta to the first obtuse marginal artery. 2. Exclusion of the left atrial appendage using a 35 mm AtriClip. 3. Endoscopic harvesting of the left greater saphenous vein. 4. Intraoperative graft flow measurements using the [employer]-Stim system. 5. Intraoperative transesophageal echocardiogram and epiaortic scanning. INDICATION FOR SURGERY: The patient is a very pleasant 75-year-old lady who I have seen as an outpatient. The patient has been complaining of dyspnea on exertion and had a cardiac catheterization that showed distal left main significant stenosis. The right coronary artery was mildly stenotic. Left ventricular function is preserved. The patient has a history of both asthma and interstitial pulmonary fibrosis. She was cleared by Pulmonary with a low risk as her PFTs were very acceptable. The patient on preoperative testing had a sodium 120 and that warranted admitting the patient to the hospital around 3 days before the scheduled surgery and that was corrected with normal saline infusion and stopping her diuretics. At this point, she had been cleared by Nephrology and she is ready for us. Plan today is for double-vessel coronary artery bypass grafting to her LAD and her obtuse marginal artery. The STS risk was discussed with her. She understood it and agreed to proceed. DESCRIPTION OF THE PROCEDURE: The patient had a right internal jugular [place] catheter and a right radial arterial line placed in the preoperative holding area. She had normal PA pressure and good cardiac index. Subsequently, she was brought to the operating room where general endotracheal anesthesia was induced uneventfully. A Yu catheter was inserted. She received 2 grams of cefazolin intravenously. The chest, abdomen and both lower extremities were prepped and draped using ChloraPrep. Ioban was used to cover the skin. Transesophageal echocardiogram confirmed the preoperative finding of normal LV function with no significant valvular abnormality. Midline sternotomy was performed and the bone was mildly osteoporotic. The left hemisternum was elevated and left internal mammary artery was harvested in a somewhat skeletonized fashion. The left pleura was intentionally opened in this process and was drained with a 19-Z[place]an Maverick drain. There were visible puckering of the pulmonary parenchyma corresponding to her known history of interstitial pulmonary fibrosis. The patient was given 5000 units of heparin and the left internal mammary artery was clipped distally before its bifurcation. It had an excellent pulsatile flow and it was around 2 mm in diameter. In the same setting, the left greater saphenous vein was harvested endoscopically from groin to just below knee level. All the branches were tied. The leg incisions were closed over a drain. We had a good segment of vein of around 4 mm in diameter. Standard retractor was placed. Mediastinal fat was transected between 2 ties and epiaortic scanning revealed some concentric intimal thickening but no protruding atheroma in the ascending aorta. Pericardium was opened in an inverted T- fashion and a pericardial cradle was created. Findings included a normal soft aorta and fatty normal-size heart. After systemic heparinization after placement of respective pledgeted pursestring, aortic cannulation with a 21-Zimbabwean soft flow cannula and venous cannulation with a 3- stage 29-Zimbabwean cannula was performed. The right atrial appendage was kind of fibrotic and we had to place 2 pursestrings to be able to contain the venous cannulation site. Retrograde as well as antegrade cardioplegia catheter were placed. Cardiopulmonary bypass was initiated with the heart empty and beating we looked at the target. It appeared that the mid LAD as well as the obtuse marginal artery in its mid aspect would the site for bypass. The aorta was clamped and during aortic clamping myocardial protection was achieved with initial dose of 800 mL of antegrade cold blood cardioplegia followed by 200 mL of retrograde cold blood cardioplegia. All subsequent doses were given antegrade as the retrograde catheter dislodged and I did not think it is worth replacing it. The first distal anastomosis was between a good segment of vein and the 2 mm mid aspect of the first obtuse marginal artery which was a thin-walled vessel using Prolene 7-0 in continuous fashion. The second distal anastomosis was between the left internal mammary artery and the mid aspect of the left anterior descending artery which was around 2 mm in diameter thin-walled using Prolene 7-0 in continuous fashion. Satisfied with the distal anastomosis, rewarming was started as we punched one button of 4 mm from the ascending aorta and performed the proximal anastomosis of the vein graft using Prolene 6-0 in a continuous fashion. We had before performing the bypass excluded the left atrial appendage with a 35 mm AtriClip deployed at the base of the left atrial appendage. The patient was given lidocaine and magnesium and de-airing maneuvers were followed and with the patient in Trendelenburg position and with the aortic root vent on maximum, we unclamped the aorta. The patient required one single defibrillation to regain spontaneous sinus rhythm. After around 10-15 minutes of reperfusion and after preliminary graft signal which was excellent, we were able to wean off cardioplegia bypass without the need of any inotropic or vasopressor support. At this point, formal graft flow measurement was performed with a 4 mm probe. The flow into the vein graft to the first obtuse marginal artery was 103 mL/minute, pulsatility index of 1.4, diastolic filling of 57% showing excellent functioning graft. The flow into the HO[place] to the LAD was 31 mL/minute, pulsatility index of 3.3, diastolic filling 51% with limit of competitive flow showing good parameters. With that, all suctions were stopped as we gave test dose and full dose protamine. Decannulation followed. The aortic cannulation site was reinforced with 4-0 Prolene. Two monopolar atrial pacing wires were affixed to the respective pursestring on the right atrium and no ventricular pacing wire was placed. Two 19-Zimbabwean Maverick drain were left substernally. The mammary bypass and a deep groove in the left pleural pericardial fat to accommodate the mammary medial to the lung and away from the posterior sternal table. The pericardial fat was loosely approximated over the heart and the graft and the aorta. After ensuring adequate hemostasis and hemodynamics and after correct sponge, instrument, and needle count, the sternum was closed using 5 [id number] [place] cable after interposing Fibrillar between the sternal edges. Thorough irrigation of cefazolin followed. The rest of the closure proceeded in layers. Skin glue was applied. Patient did not receive any blood bank product, but received 350 mL of Cell Saver blood. She was transferred to the ICU in normal sinus rhythm at 73, PA pressure of 26/12, artery pressure of 90/42 on low-dose nitroglycerin. MMODL / IJN: [id number] / [facility]
[2020-08-10 14:13] LABS: Basophils % (A) 0 %; Eosinophils # (A) 0.1 k/uL (0-0.7); Eosinophils % (A) 1 %; HCT 21.1 % (34.0-46.0); Lymphocytes # (A) 1.2 k/uL (1.0-4.8); Lymphocytes % (A) 15 %; MCH 31.7 pg (25.0-35.0); MCHC 34.7 g/dL (31.0-37.0); MCV 91.5 fL (80.0-100.0); Mean Platelet Volume 8.1; Monocytes # (A) 0.3 k/uL (0-1.0); Monocytes % (A) 3 %; Neutrophils # (A) 6.5 k/uL (1.3-7.7); Neutrophils % (A) 80 %; Platelet Count 113 k/uL (150-450); RDW 13.8 % (11.5-15.5); WBC 8.1 k/uL (3.8-10.6)
[2020-08-10 14:14] LABS: Ionized Calcium 5.2 mg/dL (4.5-5.3)
[2020-08-10] MEDS ORDERED: AMIODARONE 360 MG in DEXTROSE 5% IN WATER 200 ML IV PRN ×2 (14:15)
[2020-08-10] MEDS ORDERED: hydrALAZINE HCL 20 MG/ML 1 ML VIAL IVP PRN (14:15)
[2020-08-10] MEDS ORDERED: Magnesium Replacement Protocol 1 EACH MISC MISCELLANE PRN (14:15)
[2020-08-10] MEDS ORDERED: DEXMEDETOMIDINE/0.9% NACL(PMX) 400 MCG in EMPTY BAG 1 BAG IV SCH (14:15)
[2020-08-10] MEDS ORDERED: Phosphorus Replacement Protoco 1 EACH MISC MISCELLANE PRN (14:15)
[2020-08-10] MEDS ORDERED: ONDANSETRON 4 MG/2 ML VIAL IVP PRN (14:15)
[2020-08-10] MEDS ORDERED: CALCIUM GLUCONATE 2 GM in SODIUM CHLORIDE 0.9% 100 ML IVPB PRN (14:15)
[2020-08-10] MEDS ORDERED: DEXTROSE 5% IN WATER 100 ML with AMIODARONE 150 MG IV PRN (14:15)
[2020-08-10] MEDS ORDERED: BENZOCAINE/MENTHOL LOZENG 1 EACH LOZENGE MUCOUS MEM PRN (14:15)
[2020-08-10] MEDS ORDERED: Potassium Replacement Protocol 1 EACH MISC MISCELLANE PRN ×2 (14:15→16:53)
[2020-08-10] MEDS ORDERED: MORPHINE SULFATE 2 MG/ML SYRINGE IVP PRN (14:15)
[2020-08-10] MEDS ORDERED: METOCLOPRAMIDE 5 MG/ML 2 ML VIAL IVP PRN (14:15)
[2020-08-10] MEDS ORDERED: AMIODARONE 450 MG in DEXTROSE 5% IN WATER 250 ML IV PRN ×2 (14:15)
[2020-08-10 14:22] LABS: HGB 7.3 gm/dL (11.4-16.0)
[2020-08-10 14:26] LABS: ALT 15 U/L (4-34); AST 31 U/L (14-36); African American GFR (CKD) >90 (>60 ml/min/1.73 sqM); Albumin 2.2 g/dL (3.5-5.0); Alkaline Phosphatase 26 U/L (38-126); Anion Gap 4 mmol/L; Blood Urea Nitrogen 9 mg/dL (7-17); Calcium 7.7 mg/dL (8.4-10.2); Carbon Dioxide 25 mmol/L (22-30); Chloride 103 mmol/L (98-107); Glucose 104 mg/dL (74-99); Magnesium 2.2 mg/dL (1.6-2.3); Non-African American GFR(CKD) >90 (>60 ml/min/1.73 sqM); Potassium 3.9 mmol/L (3.5-5.1); Sodium 132 mmol/L (137-145); Total Bilirubin 0.5 mg/dL (0.2-1.3); Total Protein 3.7 g/dL (6.3-8.2)
[2020-08-10] MEDS: ALBUMIN HUMAN 5% 250 ML in EMPTY BAG 1 BAG IVPB PRN ×3 (14:35→17:25)
[2020-08-10 15:00] LABS: Glucose,Whole Blood 138 mg/dL (75-99)
--- NOTE | 2020-08-10 15:43 | XR ---
EXAMINATION TYPE: XR chest 1V portable DATE OF EXAM: 08/10/2020 COMPARISON: Chest x-ray 08/05/2020 HISTORY: Postop cardiac surgery TECHNIQUE: Single frontal view of the chest is obtained. FINDINGS: Patient is post median sternotomy, left atrial appendage clipping placement. Postop change s again noted to the cervical spine. Endotracheal tube is overlying the tracheal air column. Median s ternal drains, NG tube, left chest tube, right jugular central venous sheath and coaxial [place] ca theter are overlying appropriate positions. There is no sizable pneumothorax. Retrocardiac density ob scures the hemidiaphragm. This likely underlying interstitial change, patchy bilateral densities pres ent within the lungs. Apical pleural thickening again noted. Patient is rotated. There are overlying artifacts. IMPRESSION: Satisfactory postoperative chest x-ray, basilar atelectasis and possible associated effu judy.
[2020-08-10] MEDS ORDERED: IPRATROPIUM-ALBUTEROL 3 ML NEB INHALATION SCH (16:00)
--- NOTE | 2020-08-10 16:07 | P.CNPUL ---
History of Present Illness Consult date: 08/10/20 Requesting physician: Flores Sethi Reason for consult: other Chief complaint: Status post bypass grafting, ventilator management. History of present illness: 75-year-old female who was admitted to the hospital on August 06. She came in because her sodium was low. I saw the patient in the office for preop clearance in anticipation of bypass grafting. She actually had the surgery today. Cu rrently, she is on the volume assist control mode, rate of 12, tidal volume 350, FiO2 70%, and a PEEP of 5. Plendil same settings but 100%, the pO2 was 243, the pCO2 is 44, and a pH of 7.34. She is currently on saline at 50 mL an hour, nitroglycerin at 5 mcg/m, propofol has been turned off, and she is on norepinephrine at 5 mcg/m. She apparently had a two-vessel bypass grafting. She has a history of hyperlipidemia, hypertension, CAD, skin cancer, arthritis, and possible TIA. In addition, I saw her in the distant past for some interstitial lung disease/pulmonary fibrosis. The patient did have a complete pulmonary function test in my office. The patient's lung function including the FEV1, MVV, and RV/TLC ratio were all excellent. Based on her numbers, I thought she was at low increased operative risk. This was passed onto the cardiothoracic team. The patient surgery included a bypass graft using the left internal mammary artery to the left anterior descending coronary artery, and a reverse saphenous vein graft from aorta to the first obtuse marginal artery. She also had exclusion of the left atrial appendage using a 35 mm AtriClip, endoscopic harvesting of the left greater saphenous vein, intraoperative graft flow measurements using the Medi-Stim system and intraoperative transesophageal echocardiogram. Review of Systems Review of systems cannot be obtained as the patient's currently sedated in the ICU on the ventilator. Past Medical History Past Medical History: Asthma, Hyperlipidemia, Hypertension Additional Past Medical History / Comment(s): skin cancer with removals, arthritis multiple joints, back and cervical pain, ?TIA in her teens-shows up on scan?, pulmonary fibrosis History of Any Multi-Drug Resistant Organisms: None Reported Past Surgical History: Cholecystectomy, Heart Catheterization, Tonsillectomy, Tubal Ligation Additional Past Surgical History / Comment(s): 2 cardiac caths without intervention, bilateral cataract removal with lens implants, skin cancer removals, cyst removed from neck, colonoscopy, cervical fusion Past Anesthesia/Blood Transfusion Reactions: No Reported Reaction Additional Past Anesthesia/Blood Transfusion Reaction / Comment(s): Pt has never received blood. Past Psychological History: No Psychological Hx Reported Additional Psychological History / Comment(s): Pt resides with her spouse. She drives. Smoking Status: Former smoker Past Alcohol Use History: Occasional Additional Past Alcohol Use History / Comment(s): Pt started smoking in 1961 and quit in 1981. She smoked one and half packs per day. Past Drug Use History: None Reported - Past Family History Brother(s) Family Medical History: Coronary Artery Disease (CAD) Additional Family Medical History / Comment(s): "bad heart" aneurysm Sister(s) Family Medical History: Cancer Additional Family Medical History / Comment(s): breast cancer Mother Family Medical History: Cancer, Coronary Artery Disease (CAD) Additional Family Medical History / Comment(s): Lymphoma, had a pacemaker. Mother at the age of 92yrs. Father Family Medical History: Coronary Artery Disease (CAD), Myocardial Infarction (IA) Additional Family Medical History / Comment(s): Father of a IA at the age of 63 yrs, diagnosed with CAD in his early 50s. Medications and Allergies Home Medications Medication Instructions Recorded Confirmed Type Ipratropium-Albuterol Nebulize 3 ml INHALATION RT-QID PRN 05/18/15 08/06/20 History [Duoneb 0.5 mg-3 mg/3 ml Soln] Losartan Potassium 100 mg PO DAILY 05/18/15 08/06/20 History Simvastatin [Zocor] 40 mg PO DAILY 05/18/15 08/06/20 History Aspirin EC [Ecotrin Low Dose] 81 mg PO DAILY 04/10/17 08/06/20 History Ibuprofen [Motrin] 800 mg PO TID PRN 12/05/17 08/06/20 History Nitroglycerin Sl Tabs [Nitrostat] 0.5 tab SUBLINGUAL Q5M PRN 07/22/20 08/06/20 History hydroCHLOROthiazide 25 mg PO DAILY 07/27/20 08/06/20 History Isosorbide Mononitrate ER [Imdur] 15 mg PO DAILY 08/05/20 08/05/20 History Albuterol Sulfate [Albuterol 2 puff PO RT-Q6H PRN 08/06/20 08/06/20 History Sulfate Hfa] Metoprolol Tartrate [Lopressor] 12.5 mg PO BID 08/06/20 08/06/20 History Allergies Allergy/AdvReac Type Severity Reaction Status Date / Time adhesive Allergy blisters Verified 08/06/20 13:48 latex Allergy Rash/Hives Verified 08/06/20 13:48 Physical Exam Osteopathic Statement: *. No significant issues noted on an osteopathic structural exam other than those noted in the History and Physical/Consult. Vitals: Vital Signs Temp Pulse Pulse Resp BP BP BP 08/10/20 15:15 74 12 99/51 08/10/20 15:00 35.3 F L 96 18 99/51 08/10/20 14:45 73 12 08/10/20 14:30 76 12 08/10/20 14:15 78 12 08/10/20 14:00 80 12 08/10/20 06:25 98 F 69 149/81 08/10/20 02:21 98.0 F 68 16 146/71 08/09/20 19:29 98.0 F 78 17 141/63 08/09/20 19:20 17 BP Pulse Ox 08/10/20 15:15 100 08/10/20 15:00 100 08/10/20 14:45 100 08/10/20 14:30 100 08/10/20 14:15 100 08/10/20 14:00 100 08/10/20 06:25 155/76 98 08/10/20 02:21 96 08/09/20 19:29 97 08/09/20 19:20 Intake and Output 08/10/20 08/10/20 08/10/20 06:59 14:59 22:59 Intake Total 100 126.741 332.607 Output Total 2470 315 Balance 100 -2343.259 17.607 Intake: IV 100 104.5 301.5 Albumin Human 5% 250 ml 250 In Empty Bag 1 bag @ 250 mls/hr IVPB Q1HR PRN Rx#: [id number] Nitroglycerin-D5w Pmx 50 1.5 1.5 mg In Dextrose/Water 1 250ml.bag @ Per Protocol IV ONCE ONE Rx#:[id number] Sodium Chloride 0.9% 1, 50 50 000 ml @ 50 mls/hr IV . Q20H TORIBIO Rx#:[id number] Intake, IV Titration 22.241 31.107 Amount Norepinephrine 4 mg In 12.443 31.107 Sodium Chloride 0.9% 250 ml @ 0.05 MCG/KG/MIN 15. 554 mls/hr IV .[id number] TORIBIO Rx#:[id number] propofoL 500 mg In Empty 9.798 Bag 1 bag @ Titrate IV . Q0M TORIBIO Rx#:[id number] Output: Chest Tube Drainage 270 90 Chest Tube Bilateral 100 10 Lower Mediastinal Left Lateral Chest 170 80 Urine 1200 225 Estimated Blood Loss 1000 Other: # Voids 4 ABP, PAP, CO, CI - Last 8 Hours Arterial Blood Pressure 97/41 Arterial Blood Pressure 148/58 Arterial Blood Pressure 86/37 Arterial Blood Pressure 102/44 Arterial Blood Pressure 97/41 Arterial Blood Pressure 114/48 Pulmonary Artery Pressure 31/16 Pulmonary Artery Pressure 31/16 Pulmonary Artery Pressure 28/13 Pulmonary Artery Pressure 25/12 Pulmonary Artery Pressure 27/14 Pulmonary Artery Pressure 27/12 Cardiac Output 6.2 Cardiac Index 3.5 Currently sedated, orally placed endotracheal tube. HEENT examination is grossly unremarkable. Neck supple. Full range of motion. No adenopathy thyromegaly or neck vein distention. Cardiovascular examination reveals regular rhythm rate. S1-S2 normal. No S3 or S4. No discernible murmur noted. Heart rate 74 bpm. Lungs reveal mostly clear breath sounds. A few scattered rhonchi are noted. No wheezes or crackles. Breath sounds equal bilaterally. Abdomen soft, without bowel sounds. No masses appreciated. Extremities are intact. No cyanosis clubbing or edema. Skin is without rash or lesion. Neurologic examination cannot be assessed as she is currently sedated. Results - Laboratory Findings CBC and BMP: 08/10/20 14:00 08/10/20 14:00 ABG ABG pH 7.34 (7.35-7.45) L 08/10/20 13:52 ABG pCO2 44 mmHg (35-45) 08/10/20 13:52 ABG pO2 243 mmHg (83-108) H 08/10/20 13:52 ABG O2 Saturation 100.0 % (94-97) H 08/10/20 13:52 Abnormal lab findings: Abnormal Labs 08/05/20 08/06/20 08/06/20 11:00 13:07 13:07 RBC Hgb Hct Plt Count APTT ABG pH ABG pCO2 ABG pO2 ABG Total CO2 ABG O2 Saturation ABG Hematocrit ABG Sodium ABG Potassium ABG Ionized Calcium ABG Glucose ABG Lactic Acid Hemoglobin Sodium 122 L Chloride 86 L BUN 20 H Creatinine BUN/Creatinine Ratio Glucose 106 H POC Glucose (mg/dL) Calcium Alkaline Phosphatase Total Protein Albumin Arterial Blood Potassium Arterial Blood Glucose Urine Blood Trace H Ur Leukocyte Esterase Small H Urine Mucus Rare H Crossmatch See Detail 08/06/20 08/07/20 08/07/20 21:05 05:21 14:41 RBC Hgb Hct Plt Count APTT ABG pH ABG pCO2 ABG pO2 ABG Total CO2 ABG O2 Saturation ABG Hematocrit ABG Sodium ABG Potassium ABG Ionized Calcium ABG Glucose ABG Lactic Acid Hemoglobin Sodium 124 L 125 L 126 L Chloride 90 L BUN 20 H Creatinine BUN/Creatinine Ratio Glucose POC Glucose (mg/dL) Calcium Alkaline Phosphatase Total Protein Albumin Arterial Blood Potassium Arterial Blood Glucose Urine Blood Ur Leukocyte Esterase Urine Mucus Crossmatch 08/07/20 08/08/20 08/09/20 18:11 05:33 05:33 RBC Hgb Hct Plt Count APTT ABG pH ABG pCO2 ABG pO2 ABG Total CO2 ABG O2 Saturation ABG Hematocrit ABG Sodium ABG Potassium ABG Ionized Calcium ABG Glucose ABG Lactic Acid Hemoglobin Sodium 127 L Chloride BUN Creatinine BUN/Creatinine Ratio 23.75 H Glucose POC Glucose (mg/dL) Calcium Alkaline Phosphatase Total Protein 6.1 L Albumin Arterial Blood Potassium Arterial Blood Glucose Urine Blood Ur Leukocyte Esterase Urine Mucus Crossmatch 08/10/20 08/10/20 08/10/20 05:25 08:19 10:20 RBC Hgb Hct Plt Count APTT ABG pH ABG pCO2 ABG pO2 >420 H 225 H ABG Total CO2 26 H 26 H ABG O2 Saturation 100.0 H 99.9 H ABG Hematocrit 31 L ABG Sodium 134 L ABG Potassium ABG Ionized Calcium ABG Glucose 103 H ABG Lactic Acid Hemoglobin 10.2 L Sodium Chloride BUN Creatinine BUN/Creatinine Ratio Glucose POC Glucose (mg/dL) Calcium Alkaline Phosphatase Total Protein 6.0 L Albumin Arterial Blood Potassium Arterial Blood Glucose 103 H Urine Blood Ur Leukocyte Esterase Urine Mucus Crossmatch 08/10/20 08/10/20 08/10/20 11:08 11:34 12:17 RBC Hgb Hct Plt Count APTT ABG pH ABG pCO2 34 L ABG pO2 349 H 419 H >420 H ABG Total CO2 26 H ABG O2 Saturation 100.0 H 100.0 H 100.0 H ABG Hematocrit 20 L* 20 L* 21 L ABG Sodium 130 L 129 L 131 L ABG Potassium 5.0 H ABG Ionized Calcium 4.0 L 4.2 L 4.3 L ABG Glucose 107 H 219 H 178 H ABG Lactic Acid 2.6 H* Hemoglobin 6.5 L* 6.4 L* 6.8 L* Sodium Chloride BUN Creatinine BUN/Creatinine Ratio Glucose POC Glucose (mg/dL) Calcium Alkaline Phosphatase Total Protein Albumin Arterial Blood Potassium 5.0 H Arterial Blood Glucose 107 H 219 H 178 H Urine Blood Ur Leukocyte Esterase Urine Mucus Crossmatch 08/10/20 08/10/20 08/10/20 12:48 13:52 13:56 RBC Hgb Hct Plt Count APTT ABG pH 7.34 L ABG pCO2 ABG pO2 147 H 243 H ABG Total CO2 25 H ABG O2 Saturation 99.0 H 100.0 H ABG Hematocrit 26 L ABG Sodium 133 L ABG Potassium ABG Ionized Calcium ABG Glucose 134 H ABG Lactic Acid 2.9 H* Hemoglobin 8.4 L Sodium Chloride BUN Creatinine BUN/Creatinine Ratio Glucose POC Glucose (mg/dL) 113 H Calcium Alkaline Phosphatase Total Protein Albumin Arterial Blood Potassium Arterial Blood Glucose 134 H Urine Blood Ur Leukocyte Esterase Urine Mucus Crossmatch 08/10/20 08/10/20 08/10/20 14:00 14:00 14:00 RBC 2.30 L Hgb 7.3 L D Hct 21.1 L Plt Count 113 L APTT 41.1 H ABG pH ABG pCO2 ABG pO2 ABG Total CO2 ABG O2 Saturation ABG Hematocrit ABG Sodium ABG Potassium ABG Ionized Calcium ABG Glucose ABG Lactic Acid Hemoglobin Sodium 132 L Chloride BUN Creatinine 0.45 L BUN/Creatinine Ratio Glucose 104 H POC Glucose (mg/dL) Calcium 7.7 L Alkaline Phosphatase 26 L Total Protein 3.7 L Albumin 2.2 L Arterial Blood Potassium Arterial Blood Glucose Urine Blood Ur Leukocyte Esterase Urine Mucus Crossmatch 08/10/20 14:58 RBC Hgb Hct Plt Count APTT ABG pH ABG pCO2 ABG pO2 ABG Total CO2 ABG O2 Saturation ABG Hematocrit ABG Sodium ABG Potassium ABG Ionized Calcium ABG Glucose ABG Lactic Acid Hemoglobin Sodium Chloride BUN Creatinine BUN/Creatinine Ratio Glucose POC Glucose (mg/dL) 138 H Calcium Alkaline Phosphatase Total Protein Albumin Arterial Blood Potassium Arterial Blood Glucose Urine Blood Ur Leukocyte Esterase Urine Mucus Crossmatch - Diagnostic Findings Chest x-ray: image reviewed Assessment and Plan Assessment: Status post two-vessel bypass grafting, exclusion of left atrial appendage, and intraoperative transesophageal echocardiogram, postoperative day #0. Routine postoperative ventilator management. History of stable/mild pulmonary fibrosis, with excellent preoperative lung function, including FEV1, MVV, and RV/TLC ratio. Hyponatremia, mostly resolved. History of coronary artery disease. History of hyperlipidemia. History of hypertension. History of skin cancer. History of arthritis. Status post bilateral cataract removal with lens implants. History of cervical fusion. Plan: Plan dated 08/10/2020. The patient's ventilator was switched to the volume assist control mode from the SIMV mode. The FiO2 will be further reduces on his saturations are 93% or higher. The chest x-ray shows typical postop changes. Currently, the patient's not on any propofol. She is on norepinephrine at 5 mcg/m and nitroglycerin at 5 mcg/m. She is getting saline at 50 mL an hour. Initial blood gases show a PaO2 of 243, PaCO2 44, pH 7.34. Additional recommendations and suggestions are forthcoming. Hopefully we can get her extubated quickly. Her preoperative lung function were excellent. No additional recommendations are made at this time. We will continue to follow. Time with Patient: Greater than 30
[2020-08-10 16:26] LABS: Glucose,Whole Blood 147 mg/dL (75-99)
[2020-08-10] MEDS ORDERED: POTASSIUM BICARBONATE/CIT AC 20 MEQ TABLET.EFF NG-TUBE SCH (17:00)
[2020-08-10 17:05] LABS: Glucose,Whole Blood 155 mg/dL (75-99)
[2020-08-10 17:16] LABS: Basophils % (A) 0 %; Eosinophils # (A) 0.1 k/uL (0-0.7); Eosinophils % (A) 1 %; HCT 21.6 % (34.0-46.0); HGB 7.4 gm/dL (11.4-16.0); Lymphocytes # (A) 0.5 k/uL (1.0-4.8); Lymphocytes % (A) 7 %; MCH 31.1 pg (25.0-35.0); MCHC 34.1 g/dL (31.0-37.0); MCV 91.4 fL (80.0-100.0); Mean Platelet Volume 7.4; Monocytes # (A) 0.3 k/uL (0-1.0); Monocytes % (A) 4 %; Neutrophils # (A) 6.5 k/uL (1.3-7.7); Neutrophils % (A) 88 %; Platelet Count 128 k/uL (150-450); RBC 2.36 m/uL (3.80-5.40); RDW 14.4 % (11.5-15.5); WBC 7.4 k/uL (3.8-10.6)
[2020-08-10] MEDS: KETOROLAC 15 MG/ML 1 ML VIAL IVP SCH (18:16)
[2020-08-10 18:21] LABS: Glucose,Whole Blood 140 mg/dL (75-99)
[2020-08-10 18:49] LABS: ABG Base Excess -0.3 mmol/L; ABG HCO3 25 mmol/L (21-25); ABG PCO2 43 mmHg (35-45); ABG PH 7.37 (7.35-7.45); ABG PO2 114 mmHg (83-108); ABG TCO2 26 mmol/L (19-24); Allen Test Performed? Yes
[2020-08-10 19:05] LABS: Glucose,Whole Blood 135 mg/dL (75-99)
[2020-08-10 19:56] LABS: Glucose,Whole Blood 133 mg/dL (75-99)
[2020-08-10] MEDS: IPRATROPIUM-ALBUTEROL 3 ML NEB INHALATION SCH ×2 (20:00→20:13)
[2020-08-10 20:36] LABS: Basophils % (A) 0 %; Eosinophils % (A) 1 %; Lymphocytes # (A) 0.2 k/uL (1.0-4.8); Lymphocytes % (A) 3 %; MCHC 35.1 g/dL (31.0-37.0); MCV 91.3 fL (80.0-100.0); Mean Platelet Volume 7.2; Monocytes # (A) 0.3 k/uL (0-1.0); Monocytes % (A) 5 %; Neutrophils # (A) 5.7 k/uL (1.3-7.7); Neutrophils % (A) 91 %; Platelet Count 103 k/uL (150-450); RBC 2.09 m/uL (3.80-5.40); RDW 14.1 % (11.5-15.5); WBC 6.3 k/uL (3.8-10.6)
[2020-08-10 20:45] LABS: HGB 6.7 gm/dL (11.4-16.0)
[2020-08-10 21:14] LABS: Glucose,Whole Blood 134 mg/dL (75-99)
[2020-08-10] MEDS: METOPROLOL TARTRATE 12.5 MG TAB PO SCH (21:30)
[2020-08-10 21:55] LABS: Glucose,Whole Blood 132 mg/dL (75-99)
[2020-08-10] MEDS: HEPARIN SODIUM,PORCINE 5,000 UNIT/ML 1 ML VIAL SQ SCH (22:31)
[2020-08-10 23:05] LABS: Glucose,Whole Blood 127 mg/dL (75-99)
[2020-08-11 00:04] LABS: Glucose,Whole Blood 124 mg/dL (75-99)
[2020-08-11] MEDS: KETOROLAC 15 MG/ML 1 ML VIAL IVP SCH ×4 (00:32→17:35)
[2020-08-11 01:01] LABS: Glucose,Whole Blood 119 mg/dL (75-99)
[2020-08-11] MEDS ORDERED: HYDROcodone/APAP 5-325MG 1 EACH TAB PO PRN (01:50)
[2020-08-11] MEDS: ALBUMIN HUMAN 5% 250 ML in EMPTY BAG 1 BAG IVPB PRN ×3 (02:00→07:29)
[2020-08-11 02:04] LABS: Glucose,Whole Blood 123 mg/dL (75-99)
[2020-08-11] MEDS ORDERED: ALBUMIN HUMAN 5% 250 ML in EMPTY BAG 1 BAG IVPB ONE (02:14)
[2020-08-11 03:07] LABS: Glucose,Whole Blood 116 mg/dL (75-99)
[2020-08-11] MEDS: NOREPINEPHRINE 4 MG in SODIUM CHLORIDE 0.9% 250 ML IV SCH ×3 (03:09→18:33)
[2020-08-11 03:21] LABS: INR 1.2 (<1.2); Prothrombin Time 12.1 sec (9.0-12.0)
[2020-08-11 03:28] LABS: Basophils % (A) 0 %; Eosinophils # (A) 0.1 k/uL (0-0.7); Eosinophils % (A) 1 %; HCT 20.4 % (34.0-46.0); HGB 7.2 gm/dL (11.4-16.0); Lymphocytes # (A) 0.3 k/uL (1.0-4.8); Lymphocytes % (A) 4 %; MCH 31.2 pg (25.0-35.0); MCHC 35.2 g/dL (31.0-37.0); MCV 88.5 fL (80.0-100.0); Mean Platelet Volume 7.9; Monocytes # (A) 0.5 k/uL (0-1.0); Monocytes % (A) 6 %; Neutrophils % (A) 88 %; Platelet Count 109 k/uL (150-450); RBC 2.31 m/uL (3.80-5.40); RDW 13.9 % (11.5-15.5); WBC 7.9 k/uL (3.8-10.6)
[2020-08-11 03:31] LABS: Ionized Calcium 4.8 mg/dL (4.5-5.3)
[2020-08-11 03:38] LABS: ALT 14 U/L (4-34); AST 37 U/L (14-36); African American GFR (CKD) >90 (>60 ml/min/1.73 sqM); Albumin 2.9 g/dL (3.5-5.0); Alkaline Phosphatase 26 U/L (38-126); Anion Gap 5 mmol/L; Blood Urea Nitrogen 13 mg/dL (7-17); Calcium 7.7 mg/dL (8.4-10.2); Carbon Dioxide 24 mmol/L (22-30); Chloride 104 mmol/L (98-107); Glucose 103 mg/dL (74-99); Magnesium 1.8 mg/dL (1.6-2.3); Non-African American GFR(CKD) 89 (>60 ml/min/1.73 sqM); Potassium 4.3 mmol/L (3.5-5.1); Sodium 133 mmol/L (137-145); Total Bilirubin 0.6 mg/dL (0.2-1.3); Total Protein 4.4 g/dL (6.3-8.2)
[2020-08-11] MEDS: HYDROcodone/APAP 5-325MG 1 EACH TAB PO PRN ×3 (03:42→22:12)
[2020-08-11 04:16] LABS: Glucose,Whole Blood 109 mg/dL (75-99)
[2020-08-11] MEDS: MAGNESIUM SULFATE-D5W PMX 1 GM in DEXTROSE/WATER 1 100ML.BAG IVPB SCH ×2 (04:34→05:10)
[2020-08-11 05:05] LABS: Glucose,Whole Blood 132 mg/dL (75-99)
[2020-08-11 06:39] LABS: Glucose,Whole Blood 113 mg/dL (75-99)
[2020-08-11 07:26] LABS: Glucose,Whole Blood 133 mg/dL (75-99)
[2020-08-11] MEDS: IPRATROPIUM-ALBUTEROL 3 ML NEB INHALATION SCH ×4 (07:42→19:42)
[2020-08-11] MEDS ORDERED: CALCIUM GLUCONATE 2 GM in SODIUM CHLORIDE 0.9% 100 ML IVPB ONE (08:00)
--- NOTE | 2020-08-11 08:25 | XR ---
EXAMINATION TYPE: XR chest 1V portable DATE OF EXAM: 08/11/2020 COMPARISON: Chest x-ray 08/10/2020 HISTORY: Postop cardiac surgery TECHNIQUE: Single frontal view of the chest is obtained. FINDINGS: There is been interval removal of endotracheal and NG tube. Median sternal drains, right j ugular central venous catheter, left chest tube are again noted. Lung lines are low. There is no evid ent pneumothorax. Patchy bibasilar density is present. Heart is enlarged. Interstitium is increased. Surgical clips in the right upper quadrant. IMPRESSION: Expiratory exam. Difficult to exclude a component of volume overload, interstitial edema , there may be basilar atelectasis versus edema, associated effusion. Interval extubation.
[2020-08-11 08:29] LABS: Glucose,Whole Blood 129 mg/dL (75-99)
[2020-08-11] MEDS: CLEVIDIPINE BUTYRATE 25 MG in EMPTY BAG 1 BAG IV SCH ×2 (08:30→18:03)
--- NOTE | 2020-08-11 08:48 | P.PN ---
Subjective Progress Note Date: 08/11/20 Principal diagnosis: ICU management, ventilator management. 75-year-old female who was admitted to the hospital on August 06. She came in because her sodium was low. I saw the patient in the office for preop clearance in anticipation of bypass grafting. She actually had the surgery today. Currently, she is on the volume assist control mode, rate of 12, tidal volume 350, FiO2 70%, and a PEEP of 5. Plendil same settings but 100%, the pO2 was 243, the pCO2 is 44, and a pH of 7.34. She is currently on saline at 50 mL an hour, nitroglycerin at 5 mcg/m, propofol has been turned off, and she is on norepinephrine at 5 mcg/m. She apparently had a two-vessel bypass grafting. She has a history of hyperlipidemia, hypertension, CAD, skin cancer, arthritis, and possible TIA. In addition, I saw her in the distant past for some interstitial lung disease/pulmonary fibrosis. The patient did have a complete pulmonary function test in my office. The patient's lung function including the FEV1, MVV, and RV/TLC ratio were all excellent. Based on her numbers, I thought she was at low increased operative risk. This was passed onto the cardiothoracic team. The patient surgery included a bypass graft using the left internal mammary artery to the left anterior descending coronary artery, and a reverse saphenous vein graft from aorta to the first obtuse marginal artery. She also had exclusion of the left atrial appendage using a 35 mm AtriClip, endoscopic harvesting of the left greater saphenous vein, intraoperative graft flow measurements using the Medi-Stim system and intraoperative transesophageal echocardiogram. Progress note dated 08/11/2020. 75-year-old female postop day #2, status post two-vessel bypass grafting. Currently, the patient is doing relatively well. She is on 2 L nasal cannula. She is getting lactated Ringer's at 50 mL an hour, norepinephrine at 8.2 mcg/m, insulin at 0.5 units an hour. She was extubated about 4-1/2 hours after leaving the operating room. She had a pretty uneventful night according to her nurse. Her chest x-rays reviewed. This shows typical postoperative changes. I did a preop evaluation on her, and her lung function is mentioned in my consultation were excellent. She does have a history of underlying mild pulmonary fibrosis/interstitial lung disease. Currently, her white count is 7.9, hemoglobin 7.2, hematocrit 20.4, and platelet count 109,000. PT is 12.1, INR 1.2, PTT 41.1. Her last blood gases prior to extubation show a PaO2 of 114, PaCO2 of 43, and a pH of 7.37. Sodium is 133, potassium 4.3, chlorides 104, CO2 24, anion gap 5, BUN 13, and creatinine 0.63. Albumin is 2.9. Calcium is 7.7. Ionized calcium is normal. Objective - Vital Signs Vital signs: Vital Signs Temp 37.5 F L 08/11/20 08:00 Pulse 95 08/11/20 08:00 Resp 34 H 08/11/20 08:00 BP 109/62 08/11/20 04:00 Pulse Ox 93 L 08/11/20 08:00 Intake & Output 08/10/20 08/11/20 08/11/20 18:59 06:59 18:59 Intake Total 8113.838 7379.602 399.5 Output Total 3335 1167 200 Balance -2127.493 1705.602 199.5 Intake: IV 1060.5 1827.0 399.5 Albumin Human 5% 250 ml 750 250 250 In Empty Bag 1 bag @ 250 mls/hr IVPB Q1HR PRN Rx#: [id number] CO/CI injectate 300 30 Kefzol 50 Magnesium Sulfate 200 Nitroglycerin-D5w Pmx 50 7.5 18.0 1.5 mg In Dextrose/Water 1 250ml.bag @ Per Protocol IV ONCE ONE Rx#:[id number] PRBC's 310 Pressure bag 99 18 Sodium Chloride 0.9% 1, 250 600 100 000 ml @ 50 mls/hr IV . Q20H [facility] Rx#:[id number] Intake, IV Titration 147.007 135.602 0 Amount Insulin Regular 100 unit 1.776 17.239 0 In Sodium Chloride 0.9% 100 ml @ Per Protocol IV .Q0M [facility] Rx#:[id number] Norepinephrine 4 mg In 129.718 118.363 Sodium Chloride 0.9% 250 ml @ 0.05 MCG/KG/MIN 15. 554 mls/hr IV .[id number] [facility] Rx#:[id number] propofoL 500 mg In Empty 15.513 Bag 1 bag @ Titrate IV . Q0M [facility] Rx#:[id number] Oral 600 Blood Product 310 Rc Pheresis As-3 Unit 310 [id number] Output: Chest Tube Drainage 550 630 100 Chest Tube Bilateral 160 210 20 Lower Mediastinal Left Lateral Chest 390 420 80 Urine 1785 537 100 Estimated Blood Loss 1000 Other: Voiding Method Indwelling Catheter Indwelling Catheter ABP, PAP, CO, CI - Last Documented Arterial Blood Pressure 104/37 Pulmonary Artery Pressure 37/16 Cardiac Output 6.0 Cardiac Index 3.4 - Exam Extubated, currently on nasal O2 at 2 L. Awake and alert. HEENT examination is grossly unremarkable. Neck supple. Full range of motion. No adenopathy thyromegaly or neck vein distention. Cardiovascular examination reveals regular rhythm rate. S1-S2 normal. No S3 or S4. No discernible murmur noted. Heart rate 95 bpm. Lungs reveal mostly clear breath sounds. A few scattered rhonchi are noted. No wheezes or crackles. Breath sounds equal bilaterally. Abdomen soft, with bowel sounds. No masses appreciated. Extremities are intact. No cyanosis clubbing or edema. Skin is without rash or lesion. Neurologic examination is brief but nonfocal. - Labs CBC & Chem 7: 08/11/20 03:00 08/11/20 03:00 Labs: Abnormal Lab Results - Last 24 Hours (Table) 08/05/20 08/10/20 08/10/20 Range/Units 11:00 05:25 08:19 RBC (3.80-5.40) m/uL Hgb (11.4-16.0) gm/dL Hct (34.0-46.0) % Plt Count (150-450) k/uL Lymphocytes # (1.0-4.8) k/uL PT (9.0-12.0) sec INR (<1.2) APTT (22.0-30.0) sec ABG pH (7.35-7.45) ABG pCO2 (35-45) mmHg ABG pO2 >420 H (83-108) mmHg ABG Total CO2 26 H (19-24) mmol/L ABG O2 Saturation 100.0 H (94-97) % ABG Hematocrit (34.0-46.0) % ABG Sodium (135-146) mmol/L ABG Potassium (3.4-4.5) mmol/L ABG Ionized Calcium (4.5-5.3) mg/dL ABG Glucose (75-99) mg/dL ABG Lactic Acid (0.5-1.6) mmol/L Hemoglobin (11.4-16.0) gm/dL Sodium (137-145) mmol/L Creatinine (0.52-1.04) mg/dL Glucose (74-99) mg/dL POC Glucose (mg/dL) (75-99) mg/dL Calcium (8.4-10.2) mg/dL AST (14-36) U/L Alkaline Phosphatase (38-126) U/L Total Protein 6.0 L (6.2-8.2) g/dL Albumin (3.5-5.0) g/dL Arterial Blood Potassium (3.4-4.5) mmol/L Arterial Blood Glucose (75-99) mg/dL Crossmatch See Detail 08/10/20 08/10/20 08/10/20 Range/Units 10:20 11:08 11:34 RBC (3.80-5.40) m/uL Hgb (11.4-16.0) gm/dL Hct (34.0-46.0) % Plt Count (150-450) k/uL Lymphocytes # (1.0-4.8) k/uL PT (9.0-12.0) sec INR (<1.2) APTT (22.0-30.0) sec ABG pH (7.35-7.45) ABG pCO2 34 L (35-45) mmHg ABG pO2 225 H 349 H 419 H (83-108) mmHg ABG Total CO2 26 H 26 H (19-24) mmol/L ABG O2 Saturation 99.9 H 100.0 H 100.0 H (94-97) % ABG Hematocrit 31 L 20 L* 20 L* (34.0-46.0) % ABG Sodium 134 L 130 L 129 L (135-146) mmol/L ABG Potassium 5.0 H (3.4-4.5) mmol/L ABG Ionized Calcium 4.0 L 4.2 L (4.5-5.3) mg/dL ABG Glucose 103 H 107 H 219 H (75-99) mg/dL ABG Lactic Acid (0.5-1.6) mmol/L Hemoglobin 10.2 L 6.5 L* 6.4 L* (11.4-16.0) gm/dL Sodium (137-145) mmol/L Creatinine (0.52-1.04) mg/dL Glucose (74-99) mg/dL POC Glucose (mg/dL) (75-99) mg/dL Calcium (8.4-10.2) mg/dL AST (14-36) U/L Alkaline Phosphatase (38-126) U/L Total Protein (6.2-8.2) g/dL Albumin (3.5-5.0) g/dL Arterial Blood Potassium 5.0 H (3.4-4.5) mmol/L Arterial Blood Glucose 103 H 107 H 219 H (75-99) mg/dL Crossmatch 08/10/20 08/10/20 08/10/20 Range/Units 12:17 12:48 13:52 RBC (3.80-5.40) m/uL Hgb (11.4-16.0) gm/dL Hct (34.0-46.0) % Plt Count (150-450) k/uL Lymphocytes # (1.0-4.8) k/uL PT (9.0-12.0) sec INR (<1.2) APTT (22.0-30.0) sec ABG pH 7.34 L (7.35-7.45) ABG pCO2 (35-45) mmHg ABG pO2 >420 H 147 H 243 H (83-108) mmHg ABG Total CO2 25 H (19-24) mmol/L ABG O2 Saturation 100.0 H 99.0 H 100.0 H (94-97) % ABG Hematocrit 21 L 26 L (34.0-46.0) % ABG Sodium 131 L 133 L (135-146) mmol/L ABG Potassium (3.4-4.5) mmol/L ABG Ionized Calcium 4.3 L (4.5-5.3) mg/dL ABG Glucose 178 H 134 H (75-99) mg/dL ABG Lactic Acid 2.6 H* 2.9 H* (0.5-1.6) mmol/L Hemoglobin 6.8 L* 8.4 L (11.4-16.0) gm/dL Sodium (137-145) mmol/L Creatinine (0.52-1.04) mg/dL Glucose (74-99) mg/dL POC Glucose (mg/dL) (75-99) mg/dL Calcium (8.4-10.2) mg/dL AST (14-36) U/L Alkaline Phosphatase (38-126) U/L Total Protein (6.2-8.2) g/dL Albumin (3.5-5.0) g/dL Arterial Blood Potassium (3.4-4.5) mmol/L Arterial Blood Glucose 178 H 134 H (75-99) mg/dL Crossmatch 08/10/20 08/10/20 08/10/20 Range/Units 13:56 14:00 14:00 RBC 2.30 L (3.80-5.40) m/uL Hgb 7.3 L D (11.4-16.0) gm/dL Hct 21.1 L (34.0-46.0) % Plt Count 113 L (150-450) k/uL Lymphocytes # (1.0-4.8) k/uL PT (9.0-12.0) sec INR (<1.2) APTT 41.1 H (22.0-30.0) sec ABG pH (7.35-7.45) ABG pCO2 (35-45) mmHg ABG pO2 (83-108) mmHg ABG Total CO2 (19-24) mmol/L ABG O2 Saturation (94-97) % ABG Hematocrit (34.0-46.0) % ABG Sodium (135-146) mmol/L ABG Potassium (3.4-4.5) mmol/L ABG Ionized Calcium (4.5-5.3) mg/dL ABG Glucose (75-99) mg/dL ABG Lactic Acid (0.5-1.6) mmol/L Hemoglobin (11.4-16.0) gm/dL Sodium (137-145) mmol/L Creatinine (0.52-1.04) mg/dL Glucose (74-99) mg/dL POC Glucose (mg/dL) 113 H (75-99) mg/dL Calcium (8.4-10.2) mg/dL AST (14-36) U/L Alkaline Phosphatase (38-126) U/L Total Protein (6.2-8.2) g/dL Albumin (3.5-5.0) g/dL Arterial Blood Potassium (3.4-4.5) mmol/L Arterial Blood Glucose (75-99) mg/dL Crossmatch 08/10/20 08/10/20 08/10/20 Range/Units 14:00 14:58 16:24 RBC (3.80-5.40) m/uL Hgb (11.4-16.0) gm/dL Hct (34.0-46.0) % Plt Count (150-450) k/uL Lymphocytes # (1.0-4.8) k/uL PT (9.0-12.0) sec INR (<1.2) APTT (22.0-30.0) sec ABG pH (7.35-7.45) ABG pCO2 (35-45) mmHg ABG pO2 (83-108) mmHg ABG Total CO2 (19-24) mmol/L ABG O2 Saturation (94-97) % ABG Hematocrit (34.0-46.0) % ABG Sodium (135-146) mmol/L ABG Potassium (3.4-4.5) mmol/L ABG Ionized Calcium (4.5-5.3) mg/dL ABG Glucose (75-99) mg/dL ABG Lactic Acid (0.5-1.6) mmol/L Hemoglobin (11.4-16.0) gm/dL Sodium 132 L (137-145) mmol/L Creatinine 0.45 L (0.52-1.04) mg/dL Glucose 104 H (74-99) mg/dL POC Glucose (mg/dL) 138 H 147 H (75-99) mg/dL Calcium 7.7 L (8.4-10.2) mg/dL AST (14-36) U/L Alkaline Phosphatase 26 L (38-126) U/L Total Protein 3.7 L (6.2-8.2) g/dL Albumin 2.2 L (3.5-5.0) g/dL Arterial Blood Potassium (3.4-4.5) mmol/L Arterial Blood Glucose (75-99) mg/dL Crossmatch 08/10/20 08/10/20 08/10/20 Range/Units 16:58 17:05 18:19 RBC 2.36 L (3.80-5.40) m/uL Hgb 7.4 L (11.4-16.0) gm/dL Hct 21.6 L (34.0-46.0) % Plt Count 128 L (150-450) k/uL Lymphocytes # 0.5 L (1.0-4.8) k/uL PT (9.0-12.0) sec INR (<1.2) APTT (22.0-30.0) sec ABG pH (7.35-7.45) ABG pCO2 (35-45) mmHg ABG pO2 (83-108) mmHg ABG Total CO2 (19-24) mmol/L ABG O2 Saturation (94-97) % ABG Hematocrit (34.0-46.0) % ABG Sodium (135-146) mmol/L ABG Potassium (3.4-4.5) mmol/L ABG Ionized Calcium (4.5-5.3) mg/dL ABG Glucose (75-99) mg/dL ABG Lactic Acid (0.5-1.6) mmol/L Hemoglobin (11.4-16.0) gm/dL Sodium (137-145) mmol/L Creatinine (0.52-1.04) mg/dL Glucose (74-99) mg/dL POC Glucose (mg/dL) 155 H 140 H (75-99) mg/dL Calcium (8.4-10.2) mg/dL AST (14-36) U/L Alkaline Phosphatase (38-126) U/L Total Protein (6.2-8.2) g/dL Albumin (3.5-5.0) g/dL Arterial Blood Potassium (3.4-4.5) mmol/L Arterial Blood Glucose (75-99) mg/dL Crossmatch 08/10/20 08/10/20 08/10/20 Range/Units 18:46 19:00 19:54 RBC (3.80-5.40) m/uL Hgb (11.4-16.0) gm/dL Hct (34.0-46.0) % Plt Count (150-450) k/uL Lymphocytes # (1.0-4.8) k/uL PT (9.0-12.0) sec INR (<1.2) APTT (22.0-30.0) sec ABG pH (7.35-7.45) ABG pCO2 (35-45) mmHg ABG pO2 114 H (83-108) mmHg ABG Total CO2 26 H (19-24) mmol/L ABG O2 Saturation 99.0 H (94-97) % ABG Hematocrit (34.0-46.0) % ABG Sodium (135-146) mmol/L ABG Potassium (3.4-4.5) mmol/L ABG Ionized Calcium (4.5-5.3) mg/dL ABG Glucose (75-99) mg/dL ABG Lactic Acid (0.5-1.6) mmol/L Hemoglobin (11.4-16.0) gm/dL Sodium (137-145) mmol/L Creatinine (0.52-1.04) mg/dL Glucose (74-99) mg/dL POC Glucose (mg/dL) 135 H 133 H (75-99) mg/dL Calcium (8.4-10.2) mg/dL AST (14-36) U/L Alkaline Phosphatase (38-126) U/L Total Protein (6.2-8.2) g/dL Albumin (3.5-5.0) g/dL Arterial Blood Potassium (3.4-4.5) mmol/L Arterial Blood Glucose (75-99) mg/dL Crossmatch 08/10/20 08/10/20 08/10/20 Range/Units 19:55 21:12 21:54 RBC 2.09 L (3.80-5.40) m/uL Hgb 6.7 L* (11.4-16.0) gm/dL Hct 19.0 L* (34.0-46.0) % Plt Count 103 L (150-450) k/uL Lymphocytes # 0.2 L (1.0-4.8) k/uL PT (9.0-12.0) sec INR (<1.2) APTT (22.0-30.0) sec ABG pH (7.35-7.45) ABG pCO2 (35-45) mmHg ABG pO2 (83-108) mmHg ABG Total CO2 (19-24) mmol/L ABG O2 Saturation (94-97) % ABG Hematocrit (34.0-46.0) % ABG Sodium (135-146) mmol/L ABG Potassium (3.4-4.5) mmol/L ABG Ionized Calcium (4.5-5.3) mg/dL ABG Glucose (75-99) mg/dL ABG Lactic Acid (0.5-1.6) mmol/L Hemoglobin (11.4-16.0) gm/dL Sodium (137-145) mmol/L Creatinine (0.52-1.04) mg/dL Glucose (74-99) mg/dL POC Glucose (mg/dL) 134 H 132 H (75-99) mg/dL Calcium (8.4-10.2) mg/dL AST (14-36) U/L Alkaline Phosphatase (38-126) U/L Total Protein (6.2-8.2) g/dL Albumin (3.5-5.0) g/dL Arterial Blood Potassium (3.4-4.5) mmol/L Arterial Blood Glucose (75-99) mg/dL Crossmatch 08/10/20 08/10/20 08/11/20 Range/Units 23:03 23:59 01:00 RBC (3.80-5.40) m/uL Hgb (11.4-16.0) gm/dL Hct (34.0-46.0) % Plt Count (150-450) k/uL Lymphocytes # (1.0-4.8) k/uL PT (9.0-12.0) sec INR (<1.2) APTT (22.0-30.0) sec ABG pH (7.35-7.45) ABG pCO2 (35-45) mmHg ABG pO2 (83-108) mmHg ABG Total CO2 (19-24) mmol/L ABG O2 Saturation (94-97) % ABG Hematocrit (34.0-46.0) % ABG Sodium (135-146) mmol/L ABG Potassium (3.4-4.5) mmol/L ABG Ionized Calcium (4.5-5.3) mg/dL ABG Glucose (75-99) mg/dL ABG Lactic Acid (0.5-1.6) mmol/L Hemoglobin (11.4-16.0) gm/dL Sodium (137-145) mmol/L Creatinine (0.52-1.04) mg/dL Glucose (74-99) mg/dL POC Glucose (mg/dL) 127 H 124 H 119 H (75-99) mg/dL Calcium (8.4-10.2) mg/dL AST (14-36) U/L Alkaline Phosphatase (38-126) U/L Total Protein (6.2-8.2) g/dL Albumin (3.5-5.0) g/dL Arterial Blood Potassium (3.4-4.5) mmol/L Arterial Blood Glucose (75-99) mg/dL Crossmatch 08/11/20 08/11/20 08/11/20 Range/Units 01:56 03:00 03:00 RBC 2.31 L (3.80-5.40) m/uL Hgb 7.2 L (11.4-16.0) gm/dL Hct 20.4 L (34.0-46.0) % Plt Count 109 L (150-450) k/uL Lymphocytes # 0.3 L (1.0-4.8) k/uL PT 12.1 H (9.0-12.0) sec INR 1.2 H (<1.2) APTT (22.0-30.0) sec ABG pH (7.35-7.45) ABG pCO2 (35-45) mmHg ABG pO2 (83-108) mmHg ABG Total CO2 (19-24) mmol/L ABG O2 Saturation (94-97) % ABG Hematocrit (34.0-46.0) % ABG Sodium (135-146) mmol/L ABG Potassium (3.4-4.5) mmol/L ABG Ionized Calcium (4.5-5.3) mg/dL ABG Glucose (75-99) mg/dL ABG Lactic Acid (0.5-1.6) mmol/L Hemoglobin (11.4-16.0) gm/dL Sodium (137-145) mmol/L Creatinine (0.52-1.04) mg/dL Glucose (74-99) mg/dL POC Glucose (mg/dL) 123 H (75-99) mg/dL Calcium (8.4-10.2) mg/dL AST (14-36) U/L Alkaline Phosphatase (38-126) U/L Total Protein (6.2-8.2) g/dL Albumin (3.5-5.0) g/dL Arterial Blood Potassium (3.4-4.5) mmol/L Arterial Blood Glucose (75-99) mg/dL Crossmatch 08/11/20 08/11/20 08/11/20 Range/Units 03:00 03:01 04:10 RBC (3.80-5.40) m/uL Hgb (11.4-16.0) gm/dL Hct (34.0-46.0) % Plt Count (150-450) k/uL Lymphocytes # (1.0-4.8) k/uL PT (9.0-12.0) sec INR (<1.2) APTT (22.0-30.0) sec ABG pH (7.35-7.45) ABG pCO2 (35-45) mmHg ABG pO2 (83-108) mmHg ABG Total CO2 (19-24) mmol/L ABG O2 Saturation (94-97) % ABG Hematocrit (34.0-46.0) % ABG Sodium (135-146) mmol/L ABG Potassium (3.4-4.5) mmol/L ABG Ionized Calcium (4.5-5.3) mg/dL ABG Glucose (75-99) mg/dL ABG Lactic Acid (0.5-1.6) mmol/L Hemoglobin (11.4-16.0) gm/dL Sodium 133 L (137-145) mmol/L Creatinine (0.52-1.04) mg/dL Glucose 103 H (74-99) mg/dL POC Glucose (mg/dL) 116 H 109 H (75-99) mg/dL Calcium 7.7 L (8.4-10.2) mg/dL AST 37 H (14-36) U/L Alkaline Phosphatase 26 L (38-126) U/L Total Protein 4.4 L (6.2-8.2) g/dL Albumin 2.9 L (3.5-5.0) g/dL Arterial Blood Potassium (3.4-4.5) mmol/L Arterial Blood Glucose (75-99) mg/dL Crossmatch 08/11/20 08/11/20 08/11/20 Range/Units 05:04 06:37 07:24 RBC (3.80-5.40) m/uL Hgb (11.4-16.0) gm/dL Hct (34.0-46.0) % Plt Count (150-450) k/uL Lymphocytes # (1.0-4.8) k/uL PT (9.0-12.0) sec INR (<1.2) APTT (22.0-30.0) sec ABG pH (7.35-7.45) ABG pCO2 (35-45) mmHg ABG pO2 (83-108) mmHg ABG Total CO2 (19-24) mmol/L ABG O2 Saturation (94-97) % ABG Hematocrit (34.0-46.0) % ABG Sodium (135-146) mmol/L ABG Potassium (3.4-4.5) mmol/L ABG Ionized Calcium (4.5-5.3) mg/dL ABG Glucose (75-99) mg/dL ABG Lactic Acid (0.5-1.6) mmol/L Hemoglobin (11.4-16.0) gm/dL Sodium (137-145) mmol/L Creatinine (0.52-1.04) mg/dL Glucose (74-99) mg/dL POC Glucose (mg/dL) 132 H 113 H 133 H (75-99) mg/dL Calcium (8.4-10.2) mg/dL AST (14-36) U/L Alkaline Phosphatase (38-126) U/L Total Protein (6.2-8.2) g/dL Albumin (3.5-5.0) g/dL Arterial Blood Potassium (3.4-4.5) mmol/L Arterial Blood Glucose (75-99) mg/dL Crossmatch 08/11/20 Range/Units 08:17 RBC (3.80-5.40) m/uL Hgb (11.4-16.0) gm/dL Hct (34.0-46.0) % Plt Count (150-450) k/uL Lymphocytes # (1.0-4.8) k/uL PT (9.0-12.0) sec INR (<1.2) APTT (22.0-30.0) sec ABG pH (7.35-7.45) ABG pCO2 (35-45) mmHg ABG pO2 (83-108) mmHg ABG Total CO2 (19-24) mmol/L ABG O2 Saturation (94-97) % ABG Hematocrit (34.0-46.0) % ABG Sodium (135-146) mmol/L ABG Potassium (3.4-4.5) mmol/L ABG Ionized Calcium (4.5-5.3) mg/dL ABG Glucose (75-99) mg/dL ABG Lactic Acid (0.5-1.6) mmol/L Hemoglobin (11.4-16.0) gm/dL Sodium (137-145) mmol/L Creatinine (0.52-1.04) mg/dL Glucose (74-99) mg/dL POC Glucose (mg/dL) 129 H (75-99) mg/dL Calcium (8.4-10.2) mg/dL AST (14-36) U/L Alkaline Phosphatase (38-126) U/L Total Protein (6.2-8.2) g/dL Albumin (3.5-5.0) g/dL Arterial Blood Potassium (3.4-4.5) mmol/L Arterial Blood Glucose (75-99) mg/dL Crossmatch Assessment and Plan Assessment: Status post two-vessel bypass grafting, exclusion of left atrial appendage, and intraoperative transesophageal echocardiogram, postoperative day #1. Routine postoperative ventilator management, with extubation 4-1/2 hours after leaving the operating room. History of stable/mild pulmonary fibrosis, with excellent preoperative lung function, including FEV1, MVV, and RV/TLC ratio. Hyponatremia, mostly resolved. History of coronary artery disease. History of hyperlipidemia. History of hypertension. History of skin cancer. History of arthritis. Status post bilateral cataract removal with lens implants. History of cervical fusion. Plan: Plan dated 08/11/2020. Currently, the patient's doing reasonably well. She was extubated 4-1/2 hours after leaving the operating room. She has been weaned down to 2 L nasal cannula. Her pre-extubation weaning parameters were excellent, as was her blood gas, and her cuff leak. She was extubated without incident. Currently though, she remains on norepinephrine at 8.2 mcg/m, and an insulin drip at 0.5 units an hour. In addition, the patient's getting lactated Ringer's at 50 mL an hour. Her labs are reviewed as mentioned above. Her chest x-ray showed post surgical changes with some basilar atelectasis and small fluid collections. We will continue to follow. Prognosis is guarded. No additional recommendations are made other than deep breathing, coughing, clearing of secretions, and hourly use of the incentive spirometer. Time with Patient: Greater than 30
[2020-08-11] MEDS: HEPARIN SODIUM,PORCINE 5,000 UNIT/ML 1 ML VIAL SQ SCH ×2 (08:53→16:55)
[2020-08-11] MEDS ORDERED: bisacodyL 10 MG SUPP RECTAL PRN (09:00)
[2020-08-11] MEDS ORDERED: METOPROLOL TARTRATE 12.5 MG TAB PO SCH (09:00)
[2020-08-11] MEDS ORDERED: MAGNESIUM HYDROXIDE 2,400 MG/10 ML CUP PO PRN (09:00)
[2020-08-11] MEDS ORDERED: PANTOPRAZOLE 40 MG/10 ML VIAL IVP SCH (09:00)
[2020-08-11] MEDS: CLOPIDOGREL 75 MG TAB PO SCH (09:00)
[2020-08-11] MEDS: ASPIRIN 325 MG TAB PO SCH (09:01)
[2020-08-11] MEDS: METOPROLOL TARTRATE 12.5 MG TAB PO SCH ×2 (09:01→22:04)
[2020-08-11] MEDS: ATORVASTATIN 40 MG TAB PO SCH (09:01)
--- NOTE | 2020-08-11 09:11 | P.PN ---
Subjective Progress Note Date: 08/11/20 Principal diagnosis: Coronary artery disease with left main disease, preserved systolic function, preoperative hyponatremia warranting admission for correction. Previous medical history of pulmonary fibrosis, asthma, hypertension, hyperlipidemia, previous tobacco dependence with preoperative FEV1 107% of predicted, obesity, osteoarthritis, cervical stenosis post anterior cervical decompression with discectomy and fusion, TIA in childhood, and family history of premature sal nary artery disease POD #1 double vessel coronary artery bypass grafting using the left internal ma mmary artery to the left anterior descending artery, reverse saphenous vein graft from the aorta to the first obtuse marginal artery, exclusion of the left atrial appendage using a 35 mm AtriClip, endoscopic harvesting of the left greater saphenous vein from the groin to just below the knee level, i ntraoperative graft flow measurements using the Souche system, intraoperative transesophageal echocardiogram and epi-aortic scanning. Postoperative acute blood loss anemia, expected given hemodilution and cardiopulmonary bypass pump Postoperative hypotension requiring vasopressor support, expected vasoplegia due to preoperative ARB use The patient is currently sitting up in a recliner in the intensive care unit in no acute distress. She was successfully extubated last night at 19:05. She remains in sinus rhythm, hypotensive requiring IV levo. Her hemoglobin was 6.7 and she did receive 1 unit packed red blood cells. She states postoperative pain is controlled on current medication regimen, denies shortness of breath. Attempting incentive spirometry use. Right internal jugular Wilmore/Cordis, right radial arterial line present. No other new concerns at this time Objective - Vital Signs Vital signs: Vital Signs Temp 37.5 F L 08/11/20 08:00 Pulse 95 08/11/20 08:00 Resp 34 H 08/11/20 08:00 BP 109/62 08/11/20 04:00 Pulse Ox 93 L 08/11/20 08:00 Intake & Output 08/10/20 08/11/20 08/11/20 18:59 06:59 18:59 Intake Total 0102.383 7380.602 399.5 Output Total 3335 1167 200 Balance -2127.493 1705.602 199.5 Intake: IV 1060.5 1827.0 399.5 Albumin Human 5% 250 ml 750 250 250 In Empty Bag 1 bag @ 250 mls/hr IVPB Q1HR PRN Rx#: [id number] CO/CI injectate 300 30 Kefzol 50 Magnesium Sulfate 200 Nitroglycerin-D5w Pmx 50 7.5 18.0 1.5 mg In Dextrose/Water 1 250ml.bag @ Per Protocol IV ONCE ONE Rx#:[id number] PRBC's 310 Pressure bag 99 18 Sodium Chloride 0.9% 1, 250 600 100 000 ml @ 50 mls/hr IV . Q20H [facility] Rx#:[id number] Intake, IV Titration 147.007 135.602 0 Amount Insulin Regular 100 unit 1.776 17.239 0 In Sodium Chloride 0.9% 100 ml @ Per Protocol IV .Q0M [facility] Rx#:[id number] Norepinephrine 4 mg In 129.718 118.363 Sodium Chloride 0.9% 250 ml @ 0.05 MCG/KG/MIN 15. 554 mls/hr IV .[id number] [facility] Rx#:[id number] propofoL 500 mg In Empty 15.513 Bag 1 bag @ Titrate IV . Q0M [facility] Rx#:[id number] Oral 600 Blood Product 310 Rc Pheresis As-3 Unit 310 [id number] Output: Chest Tube Drainage 550 630 100 Chest Tube Bilateral 160 210 20 Lower Mediastinal Left Lateral Chest 390 420 80 Urine 1785 537 100 Estimated Blood Loss 1000 Other: Voiding Method Indwelling Catheter Indwelling Catheter ABP, PAP, CO, CI - Last Documented Arterial Blood Pressure 104/37 Pulmonary Artery Pressure 37/16 Cardiac Output 6.0 Cardiac Index 3.4 - Constitutional General appearance: Present: cooperative, no acute distress, obese - Respiratory Details: Lungs sounds diminished in the bases bilaterally. Respirations even, nonlabored. Currently on 2 L nasal cannula with oxygen saturation 94%. Able to achieve 500 mL on incentive spirometry. Strong cough. Mediastinal chest tube present to continuous wall suction, 110 mL serosanguineous drainage overnight, 320 mL since surgery. Left pleural chest tube present to continuous wall suction, 250 mL serosanguineous drainage overnight, 900 mL since surgery. No air leaks present. - Cardiovascular Details: S1, S2 present. Regular rate and rhythm, sinus rhythm on telemetry with heart rate in the 80s. Sternum stable. A/V epicardial pacemaker wires present, connected to generator, AAI mode with backup rate 50 bpm. Palpable peripheral pulses bilaterally. Generalized edema present. No calf pain or tenderness noted. Antiembolism stockings, SCDs present. Right internal jugular Wilmore/Cordis, right radial arterial line present. Last CO/CI 6.0/3.4 with PA 28/6, CVP 8 on levo for hypotension. - Gastrointestinal Gastrointestinal Comment(s): Abdomen soft, nontender, nondistended. Hypoactive bowel sounds present 4 quadrants. Tolerating clear liquids. Negative flatus - Genitourinary Genitourinary Comment(s): Yu present draining clear, yellow urine. Output as high as 60-70 mL per hour, as low as 10-20 mL/h - Integumentary Integumentary Comment(s): Skin is warm and dry with evidence of good perfusion. Anterior chest incision well approximated and covered with dry intact dressing. Left lower extremity EVH site well approximated without redness or drainage - Neurologic Neurologic: Present: CNII-XII intact - Musculoskeletal Musculoskeletal: Present: strength equal bilaterally - Psychiatric Psychiatric: Present: A&O x's 3, appropriate affect, intact judgment & insight - Allied health notes Allied health notes reviewed: nursing - Labs CBC & Chem 7: 08/11/20 03:00 08/11/20 03:00 Labs: Abnormal Lab Results - Last 24 Hours (Table) 08/05/20 08/10/20 08/10/20 Range/Units 11:00 05:25 08:19 RBC (3.80-5.40) m/uL Hgb (11.4-16.0) gm/dL Hct (34.0-46.0) % Plt Count (150-450) k/uL Lymphocytes # (1.0-4.8) k/uL PT (9.0-12.0) sec INR (<1.2) APTT (22.0-30.0) sec ABG pH (7.35-7.45) ABG pCO2 (35-45) mmHg ABG pO2 >420 H (83-108) mmHg ABG Total CO2 26 H (19-24) mmol/L ABG O2 Saturation 100.0 H (94-97) % ABG Hematocrit (34.0-46.0) % ABG Sodium (135-146) mmol/L ABG Potassium (3.4-4.5) mmol/L ABG Ionized Calcium (4.5-5.3) mg/dL ABG Glucose (75-99) mg/dL ABG Lactic Acid (0.5-1.6) mmol/L Hemoglobin (11.4-16.0) gm/dL Sodium (137-145) mmol/L Creatinine (0.52-1.04) mg/dL Glucose (74-99) mg/dL POC Glucose (mg/dL) (75-99) mg/dL Calcium (8.4-10.2) mg/dL AST (14-36) U/L Alkaline Phosphatase (38-126) U/L Total Protein 6.0 L (6.2-8.2) g/dL Albumin (3.5-5.0) g/dL Arterial Blood Potassium (3.4-4.5) mmol/L Arterial Blood Glucose (75-99) mg/dL Crossmatch See Detail 08/10/20 08/10/20 08/10/20 Range/Units 10:20 11:08 11:34 RBC (3.80-5.40) m/uL Hgb (11.4-16.0) gm/dL Hct (34.0-46.0) % Plt Count (150-450) k/uL Lymphocytes # (1.0-4.8) k/uL PT (9.0-12.0) sec INR (<1.2) APTT (22.0-30.0) sec ABG pH (7.35-7.45) ABG pCO2 34 L (35-45) mmHg ABG pO2 225 H 349 H 419 H (83-108) mmHg ABG Total CO2 26 H 26 H (19-24) mmol/L ABG O2 Saturation 99.9 H 100.0 H 100.0 H (94-97) % ABG Hematocrit 31 L 20 L* 20 L* (34.0-46.0) % ABG Sodium 134 L 130 L 129 L (135-146) mmol/L ABG Potassium 5.0 H (3.4-4.5) mmol/L ABG Ionized Calcium 4.0 L 4.2 L (4.5-5.3) mg/dL ABG Glucose 103 H 107 H 219 H (75-99) mg/dL ABG Lactic Acid (0.5-1.6) mmol/L Hemoglobin 10.2 L 6.5 L* 6.4 L* (11.4-16.0) gm/dL Sodium (137-145) mmol/L Creatinine (0.52-1.04) mg/dL Glucose (74-99) mg/dL POC Glucose (mg/dL) (75-99) mg/dL Calcium (8.4-10.2) mg/dL AST (14-36) U/L Alkaline Phosphatase (38-126) U/L Total Protein (6.2-8.2) g/dL Albumin (3.5-5.0) g/dL Arterial Blood Potassium 5.0 H (3.4-4.5) mmol/L Arterial Blood Glucose 103 H 107 H 219 H (75-99) mg/dL Crossmatch 08/10/20 08/10/20 08/10/20 Range/Units 12:17 12:48 13:52 RBC (3.80-5.40) m/uL Hgb (11.4-16.0) gm/dL Hct (34.0-46.0) % Plt Count (150-450) k/uL Lymphocytes # (1.0-4.8) k/uL PT (9.0-12.0) sec INR (<1.2) APTT (22.0-30.0) sec ABG pH 7.34 L (7.35-7.45) ABG pCO2 (35-45) mmHg ABG pO2 >420 H 147 H 243 H (83-108) mmHg ABG Total CO2 25 H (19-24) mmol/L ABG O2 Saturation 100.0 H 99.0 H 100.0 H (94-97) % ABG Hematocrit 21 L 26 L (34.0-46.0) % ABG Sodium 131 L 133 L (135-146) mmol/L ABG Potassium (3.4-4.5) mmol/L ABG Ionized Calcium 4.3 L (4.5-5.3) mg/dL ABG Glucose 178 H 134 H (75-99) mg/dL ABG Lactic Acid 2.6 H* 2.9 H* (0.5-1.6) mmol/L Hemoglobin 6.8 L* 8.4 L (11.4-16.0) gm/dL Sodium (137-145) mmol/L Creatinine (0.52-1.04) mg/dL Glucose (74-99) mg/dL POC Glucose (mg/dL) (75-99) mg/dL Calcium (8.4-10.2) mg/dL AST (14-36) U/L Alkaline Phosphatase (38-126) U/L Total Protein (6.2-8.2) g/dL Albumin (3.5-5.0) g/dL Arterial Blood Potassium (3.4-4.5) mmol/L Arterial Blood Glucose 178 H 134 H (75-99) mg/dL Crossmatch 08/10/20 08/10/20 08/10/20 Range/Units 13:56 14:00 14:00 RBC 2.30 L (3.80-5.40) m/uL Hgb 7.3 L D (11.4-16.0) gm/dL Hct 21.1 L (34.0-46.0) % Plt Count 113 L (150-450) k/uL Lymphocytes # (1.0-4.8) k/uL PT (9.0-12.0) sec INR (<1.2) APTT 41.1 H (22.0-30.0) sec ABG pH (7.35-7.45) ABG pCO2 (35-45) mmHg ABG pO2 (83-108) mmHg ABG Total CO2 (19-24) mmol/L ABG O2 Saturation (94-97) % ABG Hematocrit (34.0-46.0) % ABG Sodium (135-146) mmol/L ABG Potassium (3.4-4.5) mmol/L ABG Ionized Calcium (4.5-5.3) mg/dL ABG Glucose (75-99) mg/dL ABG Lactic Acid (0.5-1.6) mmol/L Hemoglobin (11.4-16.0) gm/dL Sodium (137-145) mmol/L Creatinine (0.52-1.04) mg/dL Glucose (74-99) mg/dL POC Glucose (mg/dL) 113 H (75-99) mg/dL Calcium (8.4-10.2) mg/dL AST (14-36) U/L Alkaline Phosphatase (38-126) U/L Total Protein (6.2-8.2) g/dL Albumin (3.5-5.0) g/dL Arterial Blood Potassium (3.4-4.5) mmol/L Arterial Blood Glucose (75-99) mg/dL Crossmatch 08/10/20 08/10/20 08/10/20 Range/Units 14:00 14:58 16:24 RBC (3.80-5.40) m/uL Hgb (11.4-16.0) gm/dL Hct (34.0-46.0) % Plt Count (150-450) k/uL Lymphocytes # (1.0-4.8) k/uL PT (9.0-12.0) sec INR (<1.2) APTT (22.0-30.0) sec ABG pH (7.35-7.45) ABG pCO2 (35-45) mmHg ABG pO2 (83-108) mmHg ABG Total CO2 (19-24) mmol/L ABG O2 Saturation (94-97) % ABG Hematocrit (34.0-46.0) % ABG Sodium (135-146) mmol/L ABG Potassium (3.4-4.5) mmol/L ABG Ionized Calcium (4.5-5.3) mg/dL ABG Glucose (75-99) mg/dL ABG Lactic Acid (0.5-1.6) mmol/L Hemoglobin (11.4-16.0) gm/dL Sodium 132 L (137-145) mmol/L Creatinine 0.45 L (0.52-1.04) mg/dL Glucose 104 H (74-99) mg/dL POC Glucose (mg/dL) 138 H 147 H (75-99) mg/dL Calcium 7.7 L (8.4-10.2) mg/dL AST (14-36) U/L Alkaline Phosphatase 26 L (38-126) U/L Total Protein 3.7 L (6.2-8.2) g/dL Albumin 2.2 L (3.5-5.0) g/dL Arterial Blood Potassium (3.4-4.5) mmol/L Arterial Blood Glucose (75-99) mg/dL Crossmatch 08/10/20 08/10/20 08/10/20 Range/Units 16:58 17:05 18:19 RBC 2.36 L (3.80-5.40) m/uL Hgb 7.4 L (11.4-16.0) gm/dL Hct 21.6 L (34.0-46.0) % Plt Count 128 L (150-450) k/uL Lymphocytes # 0.5 L (1.0-4.8) k/uL PT (9.0-12.0) sec INR (<1.2) APTT (22.0-30.0) sec ABG pH (7.35-7.45) ABG pCO2 (35-45) mmHg ABG pO2 (83-108) mmHg ABG Total CO2 (19-24) mmol/L ABG O2 Saturation (94-97) % ABG Hematocrit (34.0-46.0) % ABG Sodium (135-146) mmol/L ABG Potassium (3.4-4.5) mmol/L ABG Ionized Calcium (4.5-5.3) mg/dL ABG Glucose (75-99) mg/dL ABG Lactic Acid (0.5-1.6) mmol/L Hemoglobin (11.4-16.0) gm/dL Sodium (137-145) mmol/L Creatinine (0.52-1.04) mg/dL Glucose (74-99) mg/dL POC Glucose (mg/dL) 155 H 140 H (75-99) mg/dL Calcium (8.4-10.2) mg/dL AST (14-36) U/L Alkaline Phosphatase (38-126) U/L Total Protein (6.2-8.2) g/dL Albumin (3.5-5.0) g/dL Arterial Blood Potassium (3.4-4.5) mmol/L Arterial Blood Glucose (75-99) mg/dL Crossmatch 08/10/20 08/10/20 08/10/20 Range/Units 18:46 19:00 19:54 RBC (3.80-5.40) m/uL Hgb (11.4-16.0) gm/dL Hct (34.0-46.0) % Plt Count (150-450) k/uL Lymphocytes # (1.0-4.8) k/uL PT (9.0-12.0) sec INR (<1.2) APTT (22.0-30.0) sec ABG pH (7.35-7.45) ABG pCO2 (35-45) mmHg ABG pO2 114 H (83-108) mmHg ABG Total CO2 26 H (19-24) mmol/L ABG O2 Saturation 99.0 H (94-97) % ABG Hematocrit (34.0-46.0) % ABG Sodium (135-146) mmol/L ABG Potassium (3.4-4.5) mmol/L ABG Ionized Calcium (4.5-5.3) mg/dL ABG Glucose (75-99) mg/dL ABG Lactic Acid (0.5-1.6) mmol/L Hemoglobin (11.4-16.0) gm/dL Sodium (137-145) mmol/L Creatinine (0.52-1.04) mg/dL Glucose (74-99) mg/dL POC Glucose (mg/dL) 135 H 133 H (75-99) mg/dL Calcium (8.4-10.2) mg/dL AST (14-36) U/L Alkaline Phosphatase (38-126) U/L Total Protein (6.2-8.2) g/dL Albumin (3.5-5.0) g/dL Arterial Blood Potassium (3.4-4.5) mmol/L Arterial Blood Glucose (75-99) mg/dL Crossmatch 08/10/20 08/10/20 08/10/20 Range/Units 19:55 21:12 21:54 RBC 2.09 L (3.80-5.40) m/uL Hgb 6.7 L* (11.4-16.0) gm/dL Hct 19.0 L* (34.0-46.0) % Plt Count 103 L (150-450) k/uL Lymphocytes # 0.2 L (1.0-4.8) k/uL PT (9.0-12.0) sec INR (<1.2) APTT (22.0-30.0) sec ABG pH (7.35-7.45) ABG pCO2 (35-45) mmHg ABG pO2 (83-108) mmHg ABG Total CO2 (19-24) mmol/L ABG O2 Saturation (94-97) % ABG Hematocrit (34.0-46.0) % ABG Sodium (135-146) mmol/L ABG Potassium (3.4-4.5) mmol/L ABG Ionized Calcium (4.5-5.3) mg/dL ABG Glucose (75-99) mg/dL ABG Lactic Acid (0.5-1.6) mmol/L Hemoglobin (11.4-16.0) gm/dL Sodium (137-145) mmol/L Creatinine (0.52-1.04) mg/dL Glucose (74-99) mg/dL POC Glucose (mg/dL) 134 H 132 H (75-99) mg/dL Calcium (8.4-10.2) mg/dL AST (14-36) U/L Alkaline Phosphatase (38-126) U/L Total Protein (6.2-8.2) g/dL Albumin (3.5-5.0) g/dL Arterial Blood Potassium (3.4-4.5) mmol/L Arterial Blood Glucose (75-99) mg/dL Crossmatch 08/10/20 08/10/20 08/11/20 Range/Units 23:03 23:59 01:00 RBC (3.80-5.40) m/uL Hgb (11.4-16.0) gm/dL Hct (34.0-46.0) % Plt Count (150-450) k/uL Lymphocytes # (1.0-4.8) k/uL PT (9.0-12.0) sec INR (<1.2) APTT (22.0-30.0) sec ABG pH (7.35-7.45) ABG pCO2 (35-45) mmHg ABG pO2 (83-108) mmHg ABG Total CO2 (19-24) mmol/L ABG O2 Saturation (94-97) % ABG Hematocrit (34.0-46.0) % ABG Sodium (135-146) mmol/L ABG Potassium (3.4-4.5) mmol/L ABG Ionized Calcium (4.5-5.3) mg/dL ABG Glucose (75-99) mg/dL ABG Lactic Acid (0.5-1.6) mmol/L Hemoglobin (11.4-16.0) gm/dL Sodium (137-145) mmol/L Creatinine (0.52-1.04) mg/dL Glucose (74-99) mg/dL POC Glucose (mg/dL) 127 H 124 H 119 H (75-99) mg/dL Calcium (8.4-10.2) mg/dL AST (14-36) U/L Alkaline Phosphatase (38-126) U/L Total Protein (6.2-8.2) g/dL Albumin (3.5-5.0) g/dL Arterial Blood Potassium (3.4-4.5) mmol/L Arterial Blood Glucose (75-99) mg/dL Crossmatch 08/11/20 08/11/20 08/11/20 Range/Units 01:56 03:00 03:00 RBC 2.31 L (3.80-5.40) m/uL Hgb 7.2 L (11.4-16.0) gm/dL Hct 20.4 L (34.0-46.0) % Plt Count 109 L (150-450) k/uL Lymphocytes # 0.3 L (1.0-4.8) k/uL PT 12.1 H (9.0-12.0) sec INR 1.2 H (<1.2) APTT (22.0-30.0) sec ABG pH (7.35-7.45) ABG pCO2 (35-45) mmHg ABG pO2 (83-108) mmHg ABG Total CO2 (19-24) mmol/L ABG O2 Saturation (94-97) % ABG Hematocrit (34.0-46.0) % ABG Sodium (135-146) mmol/L ABG Potassium (3.4-4.5) mmol/L ABG Ionized Calcium (4.5-5.3) mg/dL ABG Glucose (75-99) mg/dL ABG Lactic Acid (0.5-1.6) mmol/L Hemoglobin (11.4-16.0) gm/dL Sodium (137-145) mmol/L Creatinine (0.52-1.04) mg/dL Glucose (74-99) mg/dL POC Glucose (mg/dL) 123 H (75-99) mg/dL Calcium (8.4-10.2) mg/dL AST (14-36) U/L Alkaline Phosphatase (38-126) U/L Total Protein (6.2-8.2) g/dL Albumin (3.5-5.0) g/dL Arterial Blood Potassium (3.4-4.5) mmol/L Arterial Blood Glucose (75-99) mg/dL Crossmatch 08/11/20 08/11/20 08/11/20 Range/Units 03:00 03:01 04:10 RBC (3.80-5.40) m/uL Hgb (11.4-16.0) gm/dL Hct (34.0-46.0) % Plt Count (150-450) k/uL Lymphocytes # (1.0-4.8) k/uL PT (9.0-12.0) sec INR (<1.2) APTT (22.0-30.0) sec ABG pH (7.35-7.45) ABG pCO2 (35-45) mmHg ABG pO2 (83-108) mmHg ABG Total CO2 (19-24) mmol/L ABG O2 Saturation (94-97) % ABG Hematocrit (34.0-46.0) % ABG Sodium (135-146) mmol/L ABG Potassium (3.4-4.5) mmol/L ABG Ionized Calcium (4.5-5.3) mg/dL ABG Glucose (75-99) mg/dL ABG Lactic Acid (0.5-1.6) mmol/L Hemoglobin (11.4-16.0) gm/dL Sodium 133 L (137-145) mmol/L Creatinine (0.52-1.04) mg/dL Glucose 103 H (74-99) mg/dL POC Glucose (mg/dL) 116 H 109 H (75-99) mg/dL Calcium 7.7 L (8.4-10.2) mg/dL AST 37 H (14-36) U/L Alkaline Phosphatase 26 L (38-126) U/L Total Protein 4.4 L (6.2-8.2) g/dL Albumin 2.9 L (3.5-5.0) g/dL Arterial Blood Potassium (3.4-4.5) mmol/L Arterial Blood Glucose (75-99) mg/dL Crossmatch 08/11/20 08/11/20 08/11/20 Range/Units 05:04 06:37 07:24 RBC (3.80-5.40) m/uL Hgb (11.4-16.0) gm/dL Hct (34.0-46.0) % Plt Count (150-450) k/uL Lymphocytes # (1.0-4.8) k/uL PT (9.0-12.0) sec INR (<1.2) APTT (22.0-30.0) sec ABG pH (7.35-7.45) ABG pCO2 (35-45) mmHg ABG pO2 (83-108) mmHg ABG Total CO2 (19-24) mmol/L ABG O2 Saturation (94-97) % ABG Hematocrit (34.0-46.0) % ABG Sodium (135-146) mmol/L ABG Potassium (3.4-4.5) mmol/L ABG Ionized Calcium (4.5-5.3) mg/dL ABG Glucose (75-99) mg/dL ABG Lactic Acid (0.5-1.6) mmol/L Hemoglobin (11.4-16.0) gm/dL Sodium (137-145) mmol/L Creatinine (0.52-1.04) mg/dL Glucose (74-99) mg/dL POC Glucose (mg/dL) 132 H 113 H 133 H (75-99) mg/dL Calcium (8.4-10.2) mg/dL AST (14-36) U/L Alkaline Phosphatase (38-126) U/L Total Protein (6.2-8.2) g/dL Albumin (3.5-5.0) g/dL Arterial Blood Potassium (3.4-4.5) mmol/L Arterial Blood Glucose (75-99) mg/dL Crossmatch 08/11/20 Range/Units 08:17 RBC (3.80-5.40) m/uL Hgb (11.4-16.0) gm/dL Hct (34.0-46.0) % Plt Count (150-450) k/uL Lymphocytes # (1.0-4.8) k/uL PT (9.0-12.0) sec INR (<1.2) APTT (22.0-30.0) sec ABG pH (7.35-7.45) ABG pCO2 (35-45) mmHg ABG pO2 (83-108) mmHg ABG Total CO2 (19-24) mmol/L ABG O2 Saturation (94-97) % ABG Hematocrit (34.0-46.0) % ABG Sodium (135-146) mmol/L ABG Potassium (3.4-4.5) mmol/L ABG Ionized Calcium (4.5-5.3) mg/dL ABG Glucose (75-99) mg/dL ABG Lactic Acid (0.5-1.6) mmol/L Hemoglobin (11.4-16.0) gm/dL Sodium (137-145) mmol/L Creatinine (0.52-1.04) mg/dL Glucose (74-99) mg/dL POC Glucose (mg/dL) 129 H (75-99) mg/dL Calcium (8.4-10.2) mg/dL AST (14-36) U/L Alkaline Phosphatase (38-126) U/L Total Protein (6.2-8.2) g/dL Albumin (3.5-5.0) g/dL Arterial Blood Potassium (3.4-4.5) mmol/L Arterial Blood Glucose (75-99) mg/dL Crossmatch - Imaging and Cardiology Chest x-ray: report reviewed, image reviewed Assessment and Plan Assessment: 1. 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 Hyponatremia, sodium level 120 just prior to admission, resolved 3. History of pulmonary fibrosis, asthma 4. Hypertension 5. Hyperlipidemia, treated, cholesterol 186, LDL 98 6. Previous tobacco dependence, preoperative FEV1 107% 7. Obesity 8. Osteoarthritis 9. Cervical stenosis post anterior cervical decompression, discectomy and fusion 10. TIA as a child around age 11 11. Family history of premature coronary artery disease with father diagnosed in his early 50s 12. Postoperative acute blood loss anemia, expected, status post transfusion 13. Postoperative hypotension, expected Plan: 1. Continue aspirin, statin, Plavix, beta sisi therapy. Will increase beta sisi therapy as tolerated. 2. Discontinue IV nitro. Wean levo as tolerated. May give single dose of 25% albumin 3. Wean O2 as tolerated. Encourage incentive spirometry is 10 times every hour while awake. Bronchodilators per pulmonology 4. Increase activity, ambulate as tolerated. PT/OT/cardiac rehab following 5. Will monitor daily labs and x-rays. Electrolyte replacement per protocol. No further transfusion at this point 6. GI/DVT prophylaxis 7. Insulin management per primary care service. Patient is not diabetic, hemoglobin A1c 5.5% 8. Discontinue Wilmore. Connect Cordis to continuous CVP monitoring 9. Will continue mediastinal and left pleural chest tubes for another 24 hours 10. Will continue Yu catheter for another 24 hours for strict accurate in take and output. Daily weights 11. More recommendations to follow Time with Patient: Greater than 30
[2020-08-11 09:23] LABS: Glucose,Whole Blood 135 mg/dL (75-99)
[2020-08-11] MEDS ORDERED: ALBUMIN HUMAN 25% 50 ML in EMPTY BAG 1 BAG IVPB ONE (11:00)
--- NOTE | 2020-08-11 11:39 | P.PN ---
Subjective Patient is extubated status post coronary artery bypass grafting and is sitting up in a chair using the incentive spirometer Mildly short of breath, respirations 20-25 Denies any chest discomfort Breath sounds are reduced bilaterally but no rhonchi no crackles Heart sounds are soft normal S1 normal S2 no murmurs Skin is warm Neck lines are in place, venous White count 7.9, hemoglobin 7.2. This is a significant drop from 13.1 Platelet count 109,000 Sodium 133, potassium 4.3, BUNs 13, creatinine 0.63 AST 37 and ALT 14 line TSH 1.87 Impression Coronary artery disease, left main disease Preserved LV systolic function on echo Hypertension, essential Dyslipidemia Symptomatic fibrosis Patient underwent coronary artery bypass grafting using the HOLLAND to the LAD and SVG to the first status post use marginal Left atrial appendage was excluded Plan Continue metoprolol Reduce aspirin to 81 mg by mouth daily Continue atorvastatin Rhythm is normal and regular at this time Objective - Vital Signs Vital signs: Vital Signs Temp 37.5 F L 08/11/20 08:00 Pulse 77 08/11/20 11:00 Resp 25 H 08/11/20 11:00 BP 109/62 08/11/20 04:00 Pulse Ox 93 L 08/11/20 11:00 Intake & Output 08/10/20 08/11/20 08/11/20 18:59 06:59 18:59 Intake Total 7351.241 7572.602 968.297 Output Total 3335 1167 355 Balance -2127.493 1705.602 613.297 Weight 81.647 kg Intake: IV 1060.5 1827.0 767.5 Albumin Human 25% 50 ml @ 50 Per Protocol IV ONCE ONE Rx#:[id number] Albumin Human 5% 250 ml 750 250 250 In Empty Bag 1 bag @ 250 mls/hr IVPB Q1HR PRN Rx#: [id number] CO/CI injectate 300 30 Calcium Gluconate 2 gm In 100 Sodium Chloride 0.9% 100 ml @ 100 mls/hr IVPB ONCE ONE Rx#:[id number] Kefzol 50 50 Magnesium Sulfate 200 Nitroglycerin-D5w Pmx 50 7.5 18.0 1.5 mg In Dextrose/Water 1 250ml.bag @ Per Protocol IV ONCE ONE Rx#:[id number] PRBC's 310 Pressure bag 99 36 Sodium Chloride 0.9% 1, 250 600 250 000 ml @ 50 mls/hr IV . Q20H TORIBIO Rx#:[id number] Intake, IV Titration 147.007 135.602 200.797 Amount Insulin Regular 100 unit 1.776 17.239 0 In Sodium Chloride 0.9% 100 ml @ Per Protocol IV .Q0M [facility]IO Rx#:[id number] Norepinephrine 4 mg In 129.718 118.363 200.797 Sodium Chloride 0.9% 250 ml @ 0.05 MCG/KG/MIN 15. 554 mls/hr IV .[id number] TORIBIO Rx#:[id number] propofoL 500 mg In Empty 15.513 Bag 1 bag @ Titrate IV . Q0M TORIBIO Rx#:[id number] Oral 600 Blood Product 310 Rc Pheresis As-3 Unit 310 [id number] Output: Chest Tube Drainage 550 630 190 Chest Tube Bilateral 160 210 20 Lower Mediastinal Left Lateral Chest 390 420 170 Urine 1785 537 165 Estimated Blood Loss 1000 Other: Voiding Method Indwelling Catheter Indwelling Catheter ABP, PAP, CO, CI - Last Documented Arterial Blood Pressure 91/39 Pulmonary Artery Pressure 37/16 Cardiac Output 6 Cardiac Index 3.4 - Labs CBC & Chem 7: 08/11/20 03:00 08/11/20 03:00 Labs: Abnormal Lab Results - Last 24 Hours (Table) 08/05/20 08/10/20 08/10/20 Range/Units 11:00 08:19 10:20 RBC (3.80-5.40) m/uL Hgb (11.4-16.0) gm/dL Hct (34.0-46.0) % Plt Count (150-450) k/uL Lymphocytes # (1.0-4.8) k/uL PT (9.0-12.0) sec INR (<1.2) APTT (22.0-30.0) sec ABG pH (7.35-7.45) ABG pCO2 (35-45) mmHg ABG pO2 >420 H 225 H (83-108) mmHg ABG Total CO2 26 H 26 H (19-24) mmol/L ABG O2 Saturation 100.0 H 99.9 H (94-97) % ABG Hematocrit 31 L (34.0-46.0) % ABG Sodium 134 L (135-146) mmol/L ABG Potassium (3.4-4.5) mmol/L ABG Ionized Calcium (4.5-5.3) mg/dL ABG Glucose 103 H (75-99) mg/dL ABG Lactic Acid (0.5-1.6) mmol/L Hemoglobin 10.2 L (11.4-16.0) gm/dL Sodium (137-145) mmol/L Creatinine (0.52-1.04) mg/dL Glucose (74-99) mg/dL POC Glucose (mg/dL) (75-99) mg/dL Calcium (8.4-10.2) mg/dL AST (14-36) U/L Alkaline Phosphatase (38-126) U/L Total Protein (6.3-8.2) g/dL Albumin (3.5-5.0) g/dL Arterial Blood Potassium (3.4-4.5) mmol/L Arterial Blood Glucose 103 H (75-99) mg/dL Crossmatch See Detail 08/10/20 08/10/20 08/10/20 Range/Units 11:08 11:34 12:17 RBC (3.80-5.40) m/uL Hgb (11.4-16.0) gm/dL Hct (34.0-46.0) % Plt Count (150-450) k/uL Lymphocytes # (1.0-4.8) k/uL PT (9.0-12.0) sec INR (<1.2) APTT (22.0-30.0) sec ABG pH (7.35-7.45) ABG pCO2 34 L (35-45) mmHg ABG pO2 349 H 419 H >420 H (83-108) mmHg ABG Total CO2 26 H (19-24) mmol/L ABG O2 Saturation 100.0 H 100.0 H 100.0 H (94-97) % ABG Hematocrit 20 L* 20 L* 21 L (34.0-46.0) % ABG Sodium 130 L 129 L 131 L (135-146) mmol/L ABG Potassium 5.0 H (3.4-4.5) mmol/L ABG Ionized Calcium 4.0 L 4.2 L 4.3 L (4.5-5.3) mg/dL ABG Glucose 107 H 219 H 178 H (75-99) mg/dL ABG Lactic Acid 2.6 H* (0.5-1.6) mmol/L Hemoglobin 6.5 L* 6.4 L* 6.8 L* (11.4-16.0) gm/dL Sodium (137-145) mmol/L Creatinine (0.52-1.04) mg/dL Glucose (74-99) mg/dL POC Glucose (mg/dL) (75-99) mg/dL Calcium (8.4-10.2) mg/dL AST (14-36) U/L Alkaline Phosphatase (38-126) U/L Total Protein (6.3-8.2) g/dL Albumin (3.5-5.0) g/dL Arterial Blood Potassium 5.0 H (3.4-4.5) mmol/L Arterial Blood Glucose 107 H 219 H 178 H (75-99) mg/dL Crossmatch 08/10/20 08/10/20 08/10/20 Range/Units 12:48 13:52 13:56 RBC (3.80-5.40) m/uL Hgb (11.4-16.0) gm/dL Hct (34.0-46.0) % Plt Count (150-450) k/uL Lymphocytes # (1.0-4.8) k/uL PT (9.0-12.0) sec INR (<1.2) APTT (22.0-30.0) sec ABG pH 7.34 L (7.35-7.45) ABG pCO2 (35-45) mmHg ABG pO2 147 H 243 H (83-108) mmHg ABG Total CO2 25 H (19-24) mmol/L ABG O2 Saturation 99.0 H 100.0 H (94-97) % ABG Hematocrit 26 L (34.0-46.0) % ABG Sodium 133 L (135-146) mmol/L ABG Potassium (3.4-4.5) mmol/L ABG Ionized Calcium (4.5-5.3) mg/dL ABG Glucose 134 H (75-99) mg/dL ABG Lactic Acid 2.9 H* (0.5-1.6) mmol/L Hemoglobin 8.4 L (11.4-16.0) gm/dL Sodium (137-145) mmol/L Creatinine (0.52-1.04) mg/dL Glucose (74-99) mg/dL POC Glucose (mg/dL) 113 H (75-99) mg/dL Calcium (8.4-10.2) mg/dL AST (14-36) U/L Alkaline Phosphatase (38-126) U/L Total Protein (6.3-8.2) g/dL Albumin (3.5-5.0) g/dL Arterial Blood Potassium (3.4-4.5) mmol/L Arterial Blood Glucose 134 H (75-99) mg/dL Crossmatch 08/10/20 08/10/20 08/10/20 Range/Units 14:00 14:00 14:00 RBC 2.30 L (3.80-5.40) m/uL Hgb 7.3 L D (11.4-16.0) gm/dL Hct 21.1 L (34.0-46.0) % Plt Count 113 L (150-450) k/uL Lymphocytes # (1.0-4.8) k/uL PT (9.0-12.0) sec INR (<1.2) APTT 41.1 H (22.0-30.0) sec ABG pH (7.35-7.45) ABG pCO2 (35-45) mmHg ABG pO2 (83-108) mmHg ABG Total CO2 (19-24) mmol/L ABG O2 Saturation (94-97) % ABG Hematocrit (34.0-46.0) % ABG Sodium (135-146) mmol/L ABG Potassium (3.4-4.5) mmol/L ABG Ionized Calcium (4.5-5.3) mg/dL ABG Glucose (75-99) mg/dL ABG Lactic Acid (0.5-1.6) mmol/L Hemoglobin (11.4-16.0) gm/dL Sodium 132 L (137-145) mmol/L Creatinine 0.45 L (0.52-1.04) mg/dL Glucose 104 H (74-99) mg/dL POC Glucose (mg/dL) (75-99) mg/dL Calcium 7.7 L (8.4-10.2) mg/dL AST (14-36) U/L Alkaline Phosphatase 26 L (38-126) U/L Total Protein 3.7 L (6.3-8.2) g/dL Albumin 2.2 L (3.5-5.0) g/dL Arterial Blood Potassium (3.4-4.5) mmol/L Arterial Blood Glucose (75-99) mg/dL Crossmatch 08/10/20 08/10/20 08/10/20 Range/Units 14:58 16:24 16:58 RBC (3.80-5.40) m/uL Hgb (11.4-16.0) gm/dL Hct (34.0-46.0) % Plt Count (150-450) k/uL Lymphocytes # (1.0-4.8) k/uL PT (9.0-12.0) sec INR (<1.2) APTT (22.0-30.0) sec ABG pH (7.35-7.45) ABG pCO2 (35-45) mmHg ABG pO2 (83-108) mmHg ABG Total CO2 (19-24) mmol/L ABG O2 Saturation (94-97) % ABG Hematocrit (34.0-46.0) % ABG Sodium (135-146) mmol/L ABG Potassium (3.4-4.5) mmol/L ABG Ionized Calcium (4.5-5.3) mg/dL ABG Glucose (75-99) mg/dL ABG Lactic Acid (0.5-1.6) mmol/L Hemoglobin (11.4-16.0) gm/dL Sodium (137-145) mmol/L Creatinine (0.52-1.04) mg/dL Glucose (74-99) mg/dL POC Glucose (mg/dL) 138 H 147 H 155 H (75-99) mg/dL Calcium (8.4-10.2) mg/dL AST (14-36) U/L Alkaline Phosphatase (38-126) U/L Total Protein (6.3-8.2) g/dL Albumin (3.5-5.0) g/dL Arterial Blood Potassium (3.4-4.5) mmol/L Arterial Blood Glucose (75-99) mg/dL Crossmatch 0208/10/20 08/10/20 Range/Units 17:05 18:19 18:46 RBC 2.36 L (3.80-5.40) m/uL Hgb 7.4 L (11.4-16.0) gm/dL Hct 21.6 L (34.0-46.0) % Plt Count 128 L (150-450) k/uL Lymphocytes # 0.5 L (1.0-4.8) k/uL PT (9.0-12.0) sec INR (<1.2) APTT (22.0-30.0) sec ABG pH (7.35-7.45) ABG pCO2 (35-45) mmHg ABG pO2 114 H (83-108) mmHg ABG Total CO2 26 H (19-24) mmol/L ABG O2 Saturation 99.0 H (94-97) % ABG Hematocrit (34.0-46.0) % ABG Sodium (135-146) mmol/L ABG Potassium (3.4-4.5) mmol/L ABG Ionized Calcium (4.5-5.3) mg/dL ABG Glucose (75-99) mg/dL ABG Lactic Acid (0.5-1.6) mmol/L Hemoglobin (11.4-16.0) gm/dL Sodium (137-145) mmol/L Creatinine (0.52-1.04) mg/dL Glucose (74-99) mg/dL POC Glucose (mg/dL) 140 H (75-99) mg/dL Calcium (8.4-10.2) mg/dL AST (14-36) U/L Alkaline Phosphatase (38-126) U/L Total Protein (6.3-8.2) g/dL Albumin (3.5-5.0) g/dL Arterial Blood Potassium (3.4-4.5) mmol/L Arterial Blood Glucose (75-99) mg/dL Crossmatch 08/10/20 08/10/20 08/10/20 Range/Units 19:00 19:54 19:55 RBC 2.09 L (3.80-5.40) m/uL Hgb 6.7 L* (11.4-16.0) gm/dL Hct 19.0 L* (34.0-46.0) % Plt Count 103 L (150-450) k/uL Lymphocytes # 0.2 L (1.0-4.8) k/uL PT (9.0-12.0) sec INR (<1.2) APTT (22.0-30.0) sec ABG pH (7.35-7.45) ABG pCO2 (35-45) mmHg ABG pO2 (83-108) mmHg ABG Total CO2 (19-24) mmol/L ABG O2 Saturation (94-97) % ABG Hematocrit (34.0-46.0) % ABG Sodium (135-146) mmol/L ABG Potassium (3.4-4.5) mmol/L ABG Ionized Calcium (4.5-5.3) mg/dL ABG Glucose (75-99) mg/dL ABG Lactic Acid (0.5-1.6) mmol/L Hemoglobin (11.4-16.0) gm/dL Sodium (137-145) mmol/L Creatinine (0.52-1.04) mg/dL Glucose (74-99) mg/dL POC Glucose (mg/dL) 135 H 133 H (75-99) mg/dL Calcium (8.4-10.2) mg/dL AST (14-36) U/L Alkaline Phosphatase (38-126) U/L Total Protein (6.3-8.2) g/dL Albumin (3.5-5.0) g/dL Arterial Blood Potassium (3.4-4.5) mmol/L Arterial Blood Glucose (75-99) mg/dL Crossmatch 08/10/20 08/10/20 08/10/20 Range/Units 21:12 21:54 23:03 RBC (3.80-5.40) m/uL Hgb (11.4-16.0) gm/dL Hct (34.0-46.0) % Plt Count (150-450) k/uL Lymphocytes # (1.0-4.8) k/uL PT (9.0-12.0) sec INR (<1.2) APTT (22.0-30.0) sec ABG pH (7.35-7.45) ABG pCO2 (35-45) mmHg ABG pO2 (83-108) mmHg ABG Total CO2 (19-24) mmol/L ABG O2 Saturation (94-97) % ABG Hematocrit (34.0-46.0) % ABG Sodium (135-146) mmol/L ABG Potassium (3.4-4.5) mmol/L ABG Ionized Calcium (4.5-5.3) mg/dL ABG Glucose (75-99) mg/dL ABG Lactic Acid (0.5-1.6) mmol/L Hemoglobin (11.4-16.0) gm/dL Sodium (137-145) mmol/L Creatinine (0.52-1.04) mg/dL Glucose (74-99) mg/dL POC Glucose (mg/dL) 134 H 132 H 127 H (75-99) mg/dL Calcium (8.4-10.2) mg/dL AST (14-36) U/L Alkaline Phosphatase (38-126) U/L Total Protein (6.3-8.2) g/dL Albumin (3.5-5.0) g/dL Arterial Blood Potassium (3.4-4.5) mmol/L Arterial Blood Glucose (75-99) mg/dL Crossmatch 08/10/20 08/11/20 08/11/20 Range/Units 23:59 01:00 01:56 RBC (3.80-5.40) m/uL Hgb (11.4-16.0) gm/dL Hct (34.0-46.0) % Plt Count (150-450) k/uL Lymphocytes # (1.0-4.8) k/uL PT (9.0-12.0) sec INR (<1.2) APTT (22.0-30.0) sec ABG pH (7.35-7.45) ABG pCO2 (35-45) mmHg ABG pO2 (83-108) mmHg ABG Total CO2 (19-24) mmol/L ABG O2 Saturation (94-97) % ABG Hematocrit (34.0-46.0) % ABG Sodium (135-146) mmol/L ABG Potassium (3.4-4.5) mmol/L ABG Ionized Calcium (4.5-5.3) mg/dL ABG Glucose (75-99) mg/dL ABG Lactic Acid (0.5-1.6) mmol/L Hemoglobin (11.4-16.0) gm/dL Sodium (137-145) mmol/L Creatinine (0.52-1.04) mg/dL Glucose (74-99) mg/dL POC Glucose (mg/dL) 124 H 119 H 123 H (75-99) mg/dL Calcium (8.4-10.2) mg/dL AST (14-36) U/L Alkaline Phosphatase (38-126) U/L Total Protein (6.3-8.2) g/dL Albumin (3.5-5.0) g/dL Arterial Blood Potassium (3.4-4.5) mmol/L Arterial Blood Glucose (75-99) mg/dL Crossmatch 08/11/20 08/11/20 08/11/20 Range/Units 03:00 03:00 03:00 RBC 2.31 L (3.80-5.40) m/uL Hgb 7.2 L (11.4-16.0) gm/dL Hct 20.4 L (34.0-46.0) % Plt Count 109 L (150-450) k/uL Lymphocytes # 0.3 L (1.0-4.8) k/uL PT 12.1 H (9.0-12.0) sec INR 1.2 H (<1.2) APTT (22.0-30.0) sec ABG pH (7.35-7.45) ABG pCO2 (35-45) mmHg ABG pO2 (83-108) mmHg ABG Total CO2 (19-24) mmol/L ABG O2 Saturation (94-97) % ABG Hematocrit (34.0-46.0) % ABG Sodium (135-146) mmol/L ABG Potassium (3.4-4.5) mmol/L ABG Ionized Calcium (4.5-5.3) mg/dL ABG Glucose (75-99) mg/dL ABG Lactic Acid (0.5-1.6) mmol/L Hemoglobin (11.4-16.0) gm/dL Sodium 133 L (137-145) mmol/L Creatinine (0.52-1.04) mg/dL Glucose 103 H (74-99) mg/dL POC Glucose (mg/dL) (75-99) mg/dL Calcium 7.7 L (8.4-10.2) mg/dL AST 37 H (14-36) U/L Alkaline Phosphatase 26 L (38-126) U/L Total Protein 4.4 L (6.3-8.2) g/dL Albumin 2.9 L (3.5-5.0) g/dL Arterial Blood Potassium (3.4-4.5) mmol/L Arterial Blood Glucose (75-99) mg/dL Crossmatch 08/11/20 08/11/20 08/11/20 Range/Units 03:01 04:10 05:04 RBC (3.80-5.40) m/uL Hgb (11.4-16.0) gm/dL Hct (34.0-46.0) % Plt Count (150-450) k/uL Lymphocytes # (1.0-4.8) k/uL PT (9.0-12.0) sec INR (<1.2) APTT (22.0-30.0) sec ABG pH (7.35-7.45) ABG pCO2 (35-45) mmHg ABG pO2 (83-108) mmHg ABG Total CO2 (19-24) mmol/L ABG O2 Saturation (94-97) % ABG Hematocrit (34.0-46.0) % ABG Sodium (135-146) mmol/L ABG Potassium (3.4-4.5) mmol/L ABG Ionized Calcium (4.5-5.3) mg/dL ABG Glucose (75-99) mg/dL ABG Lactic Acid (0.5-1.6) mmol/L Hemoglobin (11.4-16.0) gm/dL Sodium (137-145) mmol/L Creatinine (0.52-1.04) mg/dL Glucose (74-99) mg/dL POC Glucose (mg/dL) 116 H 109 H 132 H (75-99) mg/dL Calcium (8.4-10.2) mg/dL AST (14-36) U/L Alkaline Phosphatase (38-126) U/L Total Protein (6.3-8.2) g/dL Albumin (3.5-5.0) g/dL Arterial Blood Potassium (3.4-4.5) mmol/L Arterial Blood Glucose (75-99) mg/dL Crossmatch 08/11/20 08/11/20 08/11/20 Range/Units 06:37 07:24 08:17 RBC (3.80-5.40) m/uL Hgb (11.4-16.0) gm/dL Hct (34.0-46.0) % Plt Count (150-450) k/uL Lymphocytes # (1.0-4.8) k/uL PT (9.0-12.0) sec INR (<1.2) APTT (22.0-30.0) sec ABG pH (7.35-7.45) ABG pCO2 (35-45) mmHg ABG pO2 (83-108) mmHg ABG Total CO2 (19-24) mmol/L ABG O2 Saturation (94-97) % ABG Hematocrit (34.0-46.0) % ABG Sodium (135-146) mmol/L ABG Potassium (3.4-4.5) mmol/L ABG Ionized Calcium (4.5-5.3) mg/dL ABG Glucose (75-99) mg/dL ABG Lactic Acid (0.5-1.6) mmol/L Hemoglobin (11.4-16.0) gm/dL Sodium (137-145) mmol/L Creatinine (0.52-1.04) mg/dL Glucose (74-99) mg/dL POC Glucose (mg/dL) 113 H 133 H 129 H (75-99) mg/dL Calcium (8.4-10.2) mg/dL AST (14-36) U/L Alkaline Phosphatase (38-126) U/L Total Protein (6.3-8.2) g/dL Albumin (3.5-5.0) g/dL Arterial Blood Potassium (3.4-4.5) mmol/L Arterial Blood Glucose (75-99) mg/dL Crossmatch 08/11/20 Range/Units 09:21 RBC (3.80-5.40) m/uL Hgb (11.4-16.0) gm/dL Hct (34.0-46.0) % Plt Count (150-450) k/uL Lymphocytes # (1.0-4.8) k/uL PT (9.0-12.0) sec INR (<1.2) APTT (22.0-30.0) sec ABG pH (7.35-7.45) ABG pCO2 (35-45) mmHg ABG pO2 (83-108) mmHg ABG Total CO2 (19-24) mmol/L ABG O2 Saturation (94-97) % ABG Hematocrit (34.0-46.0) % ABG Sodium (135-146) mmol/L ABG Potassium (3.4-4.5) mmol/L ABG Ionized Calcium (4.5-5.3) mg/dL ABG Glucose (75-99) mg/dL ABG Lactic Acid (0.5-1.6) mmol/L Hemoglobin (11.4-16.0) gm/dL Sodium (137-145) mmol/L Creatinine (0.52-1.04) mg/dL Glucose (74-99) mg/dL POC Glucose (mg/dL) 135 H (75-99) mg/dL Calcium (8.4-10.2) mg/dL AST (14-36) U/L Alkaline Phosphatase (38-126) U/L Total Protein (6.3-8.2) g/dL Albumin (3.5-5.0) g/dL Arterial Blood Potassium (3.4-4.5) mmol/L Arterial Blood Glucose (75-99) mg/dL Crossmatch
--- NOTE | 2020-08-11 11:47 | P.PN ---
Subjective Progress Note Date: 08/11/20 HISTORY OF PRESENT ILLNESS This is a 75-year-old female patient of Dr. Avila and Dr. Garcia with a past medical history of pulmonary fibrosis, asthma, hypertension, hyperlipidemia, obesity, osteoarthritis, cervical stenosis status post anterior cervical decompression, discectomy and fusion. Patient recently underwent stress testing which demonstrated anterior wall ischemia with small reversible defect. It was recommended to undergo heart catheterization which was completed and showed calcified coronary artery, significant distal left main by IVUS, mild to moderate disease of the left anterior descending artery. Transthoracic echo was completed showed EF of 55%, mild mitral regurgitation, mild tricuspid regurgitation. Patient was then referred for coronary artery bypass grafting. During her outpatient preoperative workup patient was noted to have hyponatremia with sodium level of 120. She was advised to go to the emergency department to be admitted to correct her sodium level. Patient reports she's asymptomatic, she denies any chest pain, palpitations, shortness of breath, fever, chills, no nausea, vomiting, diarrhea, or diarrhea. Consult placed for nephrology, she was started on 0.9 normal saline at 75 mL per hour. 08/07: Patient has been afebrile, heart rate 62, blood pressure 132/70, pulse ox 90% on room air. Sodium today is at 125. Potassium 4.0, chloride 90, CO2 20, BUN 20 creatinine 0.7. Patient is followed by nephrology and received sodium chloride tablet 2 g once this morning. Repeat sodium level at 2 PM, cortisol level ordered and TSH. Patient states that she is feeling well today. She denies any lightheadedness or dizziness. No chest pain or shortness of breath. She is scheduled for open heart surgery on Monday and anticipates that she will be here through the weekend. 08/08 sodium is much better, instructions were for discontinuation of IV fluids, currently running at 75 mL an hour, sodium 135, seen by nephrology, patient is scheduled to have open heart surgery on Monday, and the would consult Dr. Sethi, and Dr. Harrison, who would assist with preop CABG management, patient denies any nausea vomiting, blood pressure is significantly much better today, no chest pain no difficulty breathing, but pressure fluctuates between 99 systolic to 161 systolic, heart rate stable at 60-69, creatinine at 0.08 urinalysis negative, patient continues to be off hydrochlorothiazide 08/09 patient feels well today, no new concerns of chest pain shortness of breath no lightheadedness no dizziness, no GI losses no pleurisy, no dysuria. Patient's serum sodium is 138, electrolytes are normal creatinine is 0.8, expected to proceed with CABG as scheduled for August 10Monday morning. board, comes felt with cardiology to assist with postcardiac management in the morning. She will be made nothing by mouth post midnight tonight 08/10: Patient is gone this morning for CABG. Patient was not seen and evaluated at this time. 08/11: Patient is status post CABG, left internal mammary artery to the left anterior descending artery, reverse saphenous vein graft from the aorta to the first obtuse marginal artery, postop day #1. Patient was successfully extubated. Patient is seen today in the intensive care unit. Patient complains of generalized fatigue and weakness. Temperature max 100.6, heart rate in the 70s and 80s, respiratory rate 25, blood pressure 91/39, pulse ox 93% on 2 L nasal cannula. WBC 7.9, hemoglobin 7.2, platelet count 109. INR is 1.2. Sodium 133 otherwise elect lites are normal, creatinine 0.63. Total bilirubin 0.6. AST 37, lymphocytes 26. Repeat chest x-ray reveals difficult to exclude component of volume overload, interstitial edema, there may be basilar atelectasis versus edema, associated effusion. Patient is reaching 500 on incentive spirometry. REVIEW OF SYSTEMS Constitutional: Reports fatigue, Denies chills, Denies fever, Denies lethargy, Denies malaise, Denies weakness Ears, nose, mouth and throat: Denies headache, Denies nasal congestion, Denies nasal discharge, Denies sinus pain, Denies sinus pressure, Denies sore throat Cardiovascular: Denies chest pain, Denies edema, Denies irregular heart beat, Denies leg edema, Denies orthopnea, Denies palpitations, Denies shortness of breath, Denies syncope Respiratory: Denies congestion, Denies cough, Denies pain, Denies respiratory infections, Denies wheezing Gastrointestinal: Denies abdominal pain, Denies constipation, Denies diarrhea, Denies dyspepsia, Denies heartburn, Denies hematemesis, Denies loss of appetite, Denies nausea, Denies vomiting Genitourinary: Denies dysuria, Denies hematuria, Denies urgency Musculoskeletal: Denies arm numbness/tingling, Denies atrophy, Denies fractures, Denies frequent falls, Denies gait dysfunction, Denies myalgias, Denies neck pain, Denies neck stiffness Integumentary: Denies dryness, Denies lesions, Denies pruritus, Denies sores, Denies wounds Neurological: Denies confusion, Denies gait dysfunction, Denies headaches, Denies paralysis, Denies seizures, Denies spasticity, Denies syncope, Denies vertigo Psychiatric: Denies anxiety, Denies confusion, Denies irritability, Denies mood swings, Denies paranoia, Denies suicidal ideation Endocrine: Denies excessive sweating, Denies fatigue, Denies high blood sugars, Denies palpitations, Denies polyphagia, Denies polyuria, Denies thyroid mass PHYSICAL EXAMINATION Gen: This is a 75-year-old female. She is sitting in recliner. HEENT: Head is atraumatic, normocephalic. Pupils equal, round. Sclerae is anicteric. Right-sided Cordis in place. NECK: Supple. No JVD. No lymphadenopathy. No thyromegaly. LUNGS: Diminished bilaterally. No intercostal retractions. HEART: Regular rate and rhythm. No murmur. Mediastinal chest tube and left pleural chest tube. ABDOMEN: Soft. Bowel sounds are present. No masses. No tenderness. Yu catheter in place. EXTREMITIES: No pedal edema. No calf tenderness. Dorsalis pedis palpable bilaterally. NEUROLOGICAL: Patient is awake, alert and oriented x3. Cranial nerves 2 through 12 are grossly intact. ASSESSMENT AND PLAN 1. Hyponatremia, resolved. Hydrochlorothiazide is on hold. Nephrology is foll owing. 2. Coronary artery disease with left main disease status post CABG. Continue current management per cardiothoracic team. 3. History of pulmonary fibrosis. Continue duo nebs and albuterol 4. Asthma, mild intermittent. Continue ipratropium albuterol nebulizers 5. Hyperlipidemia. Continue simvastatin 20 mg daily 6. Hypertension. Currently hypotensive. Continue Lopressor 12.5 mg twice daily. 7. GI prophylaxis. Pantoprazole 8. DVT prophylaxis: SCDs DISCHARGE PLAN Home with homecare. Impression and plan of care have been directed as dictated by the signing physician. Monica Fragoso nurse practitioner acting as scribe for signing physician. Objective - Vital Signs Vital signs: Vital Signs Temp 37.5 F L 08/11/20 08:00 Pulse 95 08/11/20 08:00 Resp 34 H 08/11/20 08:00 BP 109/62 08/11/20 04:00 Pulse Ox 93 L 08/11/20 08:00 Intake & Output 08/10/20 08/11/20 08/11/20 18:59 06:59 18:59 Intake Total 6735.523 7835.602 399.5 Output Total 3335 1167 200 Balance -2127.493 1705.602 199.5 Intake: IV 1060.5 1827.0 399.5 Albumin Human 5% 250 ml 750 250 250 In Empty Bag 1 bag @ 250 mls/hr IVPB Q1HR PRN Rx#: [id number] CO/CI injectate 300 30 Kefzol 50 Magnesium Sulfate 200 Nitroglycerin-D5w Pmx 50 7.5 18.0 1.5 mg In Dextrose/Water 1 250ml.bag @ Per Protocol IV ONCE ONE Rx#:[id number] PRBC's 310 Pressure bag 99 18 Sodium Chloride 0.9% 1, 250 600 100 000 ml @ 50 mls/hr IV . Q20H [facility]OR[facility]IO Rx#:[id number] Intake, IV Titration 147.007 135.602 0 Amount Insulin Regular 100 unit 1.776 17.239 0 In Sodium Chloride 0.9% 100 ml @ Per Protocol IV .Q0M [facility]IO Rx#:[id number] Norepinephrine 4 mg In 129.718 118.363 Sodium Chloride 0.9% 250 ml @ 0.05 MCG/KG/MIN 15. 554 mls/hr IV .[id number] [facility]OR[facility]IO Rx#:[id number] propofoL 500 mg In Empty 15.513 Bag 1 bag @ Titrate IV . Q0M [facility]OR[facility]IO Rx#:[id number] Oral 600 Blood Product 310 Rc Pheresis As-3 Unit 310 [id number] Output: Chest Tube Drainage 550 630 100 Chest Tube Bilateral 160 210 20 Lower Mediastinal Left Lateral Chest 390 420 80 Urine 1785 537 100 Estimated Blood Loss 1000 Other: Voiding Method Indwelling Catheter Indwelling Catheter ABP, PAP, CO, CI - Last Documented Arterial Blood Pressure 104/37 Pulmonary Artery Pressure 37/16 Cardiac Output 6.0 Cardiac Index 3.4 - Labs CBC & Chem 7: 08/11/20 03:00 08/11/20 03:00 Labs: Abnormal Lab Results - Last 24 Hours (Table) 08/05/20 08/10/20 08/10/20 Range/Units 11:00 05:25 08:19 RBC (3.80-5.40) m/uL Hgb (11.4-16.0) gm/dL Hct (34.0-46.0) % Plt Count (150-450) k/uL Lymphocytes # (1.0-4.8) k/uL PT (9.0-12.0) sec INR (<1.2) APTT (22.0-30.0) sec ABG pH (7.35-7.45) ABG pCO2 (35-45) mmHg ABG pO2 >420 H (83-108) mmHg ABG Total CO2 26 H (19-24) mmol/L ABG O2 Saturation 100.0 H (94-97) % ABG Hematocrit (34.0-46.0) % ABG Sodium (135-146) mmol/L ABG Potassium (3.4-4.5) mmol/L ABG Ionized Calcium (4.5-5.3) mg/dL ABG Glucose (75-99) mg/dL ABG Lactic Acid (0.5-1.6) mmol/L Hemoglobin (11.4-16.0) gm/dL Sodium (137-145) mmol/L Creatinine (0.52-1.04) mg/dL Glucose (74-99) mg/dL POC Glucose (mg/dL) (75-99) mg/dL Calcium (8.4-10.2) mg/dL AST (14-36) U/L Alkaline Phosphatase (38-126) U/L Total Protein 6.0 L (6.2-8.2) g/dL Albumin (3.5-5.0) g/dL Arterial Blood Potassium (3.4-4.5) mmol/L Arterial Blood Glucose (75-99) mg/dL Crossmatch See Detail 08/10/20 08/10/20 08/10/20 Range/Units 10:20 11:08 11:34 RBC (3.80-5.40) m/uL Hgb (11.4-16.0) gm/dL Hct (34.0-46.0) % Plt Count (150-450) k/uL Lymphocytes # (1.0-4.8) k/uL PT (9.0-12.0) sec INR (<1.2) APTT (22.0-30.0) sec ABG pH (7.35-7.45) ABG pCO2 34 L (35-45) mmHg ABG pO2 225 H 349 H 419 H (83-108) mmHg ABG Total CO2 26 H 26 H (19-24) mmol/L ABG O2 Saturation 99.9 H 100.0 H 100.0 H (94-97) % ABG Hematocrit 31 L 20 L* 20 L* (34.0-46.0) % ABG Sodium 134 L 130 L 129 L (135-146) mmol/L ABG Potassium 5.0 H (3.4-4.5) mmol/L ABG Ionized Calcium 4.0 L 4.2 L (4.5-5.3) mg/dL ABG Glucose 103 H 107 H 219 H (75-99) mg/dL ABG Lactic Acid (0.5-1.6) mmol/L Hemoglobin 10.2 L 6.5 L* 6.4 L* (11.4-16.0) gm/dL Sodium (137-145) mmol/L Creatinine (0.52-1.04) mg/dL Glucose (74-99) mg/dL POC Glucose (mg/dL) (75-99) mg/dL Calcium (8.4-10.2) mg/dL AST (14-36) U/L Alkaline Phosphatase (38-126) U/L Total Protein (6.2-8.2) g/dL Albumin (3.5-5.0) g/dL Arterial Blood Potassium 5.0 H (3.4-4.5) mmol/L Arterial Blood Glucose 103 H 107 H 219 H (75-99) mg/dL Crossmatch 08/10/20 08/10/20 08/10/20 Range/Units 12:17 12:48 13:52 RBC (3.80-5.40) m/uL Hgb (11.4-16.0) gm/dL Hct (34.0-46.0) % Plt Count (150-450) k/uL Lymphocytes # (1.0-4.8) k/uL PT (9.0-12.0) sec INR (<1.2) APTT (22.0-30.0) sec ABG pH 7.34 L (7.35-7.45) ABG pCO2 (35-45) mmHg ABG pO2 >420 H 147 H 243 H (83-108) mmHg ABG Total CO2 25 H (19-24) mmol/L ABG O2 Saturation 100.0 H 99.0 H 100.0 H (94-97) % ABG Hematocrit 21 L 26 L (34.0-46.0) % ABG Sodium 131 L 133 L (135-146) mmol/L ABG Potassium (3.4-4.5) mmol/L ABG Ionized Calcium 4.3 L (4.5-5.3) mg/dL ABG Glucose 178 H 134 H (75-99) mg/dL ABG Lactic Acid 2.6 H* 2.9 H* (0.5-1.6) mmol/L Hemoglobin 6.8 L* 8.4 L (11.4-16.0) gm/dL Sodium (137-145) mmol/L Creatinine (0.52-1.04) mg/dL Glucose (74-99) mg/dL POC Glucose (mg/dL) (75-99) mg/dL Calcium (8.4-10.2) mg/dL AST (14-36) U/L Alkaline Phosphatase (38-126) U/L Total Protein (6.2-8.2) g/dL Albumin (3.5-5.0) g/dL Arterial Blood Potassium (3.4-4.5) mmol/L Arterial Blood Glucose 178 H 134 H (75-99) mg/dL Crossmatch 08/10/20 08/10/20 08/10/20 Range/Units 13:56 14:00 14:00 RBC 2.30 L (3.80-5.40) m/uL Hgb 7.3 L D (11.4-16.0) gm/dL Hct 21.1 L (34.0-46.0) % Plt Count 113 L (150-450) k/uL Lymphocytes # (1.0-4.8) k/uL PT (9.0-12.0) sec INR (<1.2) APTT 41.1 H (22.0-30.0) sec ABG pH (7.35-7.45) ABG pCO2 (35-45) mmHg ABG pO2 (83-108) mmHg ABG Total CO2 (19-24) mmol/L ABG O2 Saturation (94-97) % ABG Hematocrit (34.0-46.0) % ABG Sodium (135-146) mmol/L ABG Potassium (3.4-4.5) mmol/L ABG Ionized Calcium (4.5-5.3) mg/dL ABG Glucose (75-99) mg/dL ABG Lactic Acid (0.5-1.6) mmol/L Hemoglobin (11.4-16.0) gm/dL Sodium (137-145) mmol/L Creatinine (0.52-1.04) mg/dL Glucose (74-99) mg/dL POC Glucose (mg/dL) 113 H (75-99) mg/dL Calcium (8.4-10.2) mg/dL AST (14-36) U/L Alkaline Phosphatase (38-126) U/L Total Protein (6.2-8.2) g/dL Albumin (3.5-5.0) g/dL Arterial Blood Potassium (3.4-4.5) mmol/L Arterial Blood Glucose (75-99) mg/dL Crossmatch 08/10/20 08/10/20 08/10/20 Range/Units 14:00 14:58 16:24 RBC (3.80-5.40) m/uL Hgb (11.4-16.0) gm/dL Hct (34.0-46.0) % Plt Count (150-450) k/uL Lymphocytes # (1.0-4.8) k/uL PT (9.0-12.0) sec INR (<1.2) APTT (22.0-30.0) sec ABG pH (7.35-7.45) ABG pCO2 (35-45) mmHg ABG pO2 (83-108) mmHg ABG Total CO2 (19-24) mmol/L ABG O2 Saturation (94-97) % ABG Hematocrit (34.0-46.0) % ABG Sodium (135-146) mmol/L ABG Potassium (3.4-4.5) mmol/L ABG Ionized Calcium (4.5-5.3) mg/dL ABG Glucose (75-99) mg/dL ABG Lactic Acid (0.5-1.6) mmol/L Hemoglobin (11.4-16.0) gm/dL Sodium 132 L (137-145) mmol/L Creatinine 0.45 L (0.52-1.04) mg/dL Glucose 104 H (74-99) mg/dL POC Glucose (mg/dL) 138 H 147 H (75-99) mg/dL Calcium 7.7 L (8.4-10.2) mg/dL AST (14-36) U/L Alkaline Phosphatase 26 L (38-126) U/L Total Protein 3.7 L (6.2-8.2) g/dL Albumin 2.2 L (3.5-5.0) g/dL Arterial Blood Potassium (3.4-4.5) mmol/L Arterial Blood Glucose (75-99) mg/dL Crossmatch 08/10/20 08/10/20 08/10/20 Range/Units 16:58 17:05 18:19 RBC 2.36 L (3.80-5.40) m/uL Hgb 7.4 L (11.4-16.0) gm/dL Hct 21.6 L (34.0-46.0) % Plt Count 128 L (150-450) k/uL Lymphocytes # 0.5 L (1.0-4.8) k/uL PT (9.0-12.0) sec INR (<1.2) APTT (22.0-30.0) sec ABG pH (7.35-7.45) ABG pCO2 (35-45) mmHg ABG pO2 (83-108) mmHg ABG Total CO2 (19-24) mmol/L ABG O2 Saturation (94-97) % ABG Hematocrit (34.0-46.0) % ABG Sodium (135-146) mmol/L ABG Potassium (3.4-4.5) mmol/L ABG Ionized Calcium (4.5-5.3) mg/dL ABG Glucose (75-99) mg/dL ABG Lactic Acid (0.5-1.6) mmol/L Hemoglobin (11.4-16.0) gm/dL Sodium (137-145) mmol/L Creatinine (0.52-1.04) mg/dL Glucose (74-99) mg/dL POC Glucose (mg/dL) 155 H 140 H (75-99) mg/dL Calcium (8.4-10.2) mg/dL AST (14-36) U/L Alkaline Phosphatase (38-126) U/L Total Protein (6.2-8.2) g/dL Albumin (3.5-5.0) g/dL Arterial Blood Potassium (3.4-4.5) mmol/L Arterial Blood Glucose (75-99) mg/dL Crossmatch 08/10/20 08/10/20 08/10/20 Range/Units 18:46 19:00 19:54 RBC (3.80-5.40) m/uL Hgb (11.4-16.0) gm/dL Hct (34.0-46.0) % Plt Count (150-450) k/uL Lymphocytes # (1.0-4.8) k/uL PT (9.0-12.0) sec INR (<1.2) APTT (22.0-30.0) sec ABG pH (7.35-7.45) ABG pCO2 (35-45) mmHg ABG pO2 114 H (83-108) mmHg ABG Total CO2 26 H (19-24) mmol/L ABG O2 Saturation 99.0 H (94-97) % ABG Hematocrit (34.0-46.0) % ABG Sodium (135-146) mmol/L ABG Potassium (3.4-4.5) mmol/L ABG Ionized Calcium (4.5-5.3) mg/dL ABG Glucose (75-99) mg/dL ABG Lactic Acid (0.5-1.6) mmol/L Hemoglobin (11.4-16.0) gm/dL Sodium (137-145) mmol/L Creatinine (0.52-1.04) mg/dL Glucose (74-99) mg/dL POC Glucose (mg/dL) 135 H 133 H (75-99) mg/dL Calcium (8.4-10.2) mg/dL AST (14-36) U/L Alkaline Phosphatase (38-126) U/L Total Protein (6.2-8.2) g/dL Albumin (3.5-5.0) g/dL Arterial Blood Potassium (3.4-4.5) mmol/L Arterial Blood Glucose (75-99) mg/dL Crossmatch 08/10/20 08/10/20 08/10/20 Range/Units 19:55 21:12 21:54 RBC 2.09 L (3.80-5.40) m/uL Hgb 6.7 L* (11.4-16.0) gm/dL Hct 19.0 L* (34.0-46.0) % Plt Count 103 L (150-450) k/uL Lymphocytes # 0.2 L (1.0-4.8) k/uL PT (9.0-12.0) sec INR (<1.2) APTT (22.0-30.0) sec ABG pH (7.35-7.45) ABG pCO2 (35-45) mmHg ABG pO2 (83-108) mmHg ABG Total CO2 (19-24) mmol/L ABG O2 Saturation (94-97) % ABG Hematocrit (34.0-46.0) % ABG Sodium (135-146) mmol/L ABG Potassium (3.4-4.5) mmol/L ABG Ionized Calcium (4.5-5.3) mg/dL ABG Glucose (75-99) mg/dL ABG Lactic Acid (0.5-1.6) mmol/L Hemoglobin (11.4-16.0) gm/dL Sodium (137-145) mmol/L Creatinine (0.52-1.04) mg/dL Glucose (74-99) mg/dL POC Glucose (mg/dL) 134 H 132 H (75-99) mg/dL Calcium (8.4-10.2) mg/dL AST (14-36) U/L Alkaline Phosphatase (38-126) U/L Total Protein (6.2-8.2) g/dL Albumin (3.5-5.0) g/dL Arterial Blood Potassium (3.4-4.5) mmol/L Arterial Blood Glucose (75-99) mg/dL Crossmatch 08/10/20 08/10/20 08/11/20 Range/Units 23:03 23:59 01:00 RBC (3.80-5.40) m/uL Hgb (11.4-16.0) gm/dL Hct (34.0-46.0) % Plt Count (150-450) k/uL Lymphocytes # (1.0-4.8) k/uL PT (9.0-12.0) sec INR (<1.2) APTT (22.0-30.0) sec ABG pH (7.35-7.45) ABG pCO2 (35-45) mmHg ABG pO2 (83-108) mmHg ABG Total CO2 (19-24) mmol/L ABG O2 Saturation (94-97) % ABG Hematocrit (34.0-46.0) % ABG Sodium (135-146) mmol/L ABG Potassium (3.4-4.5) mmol/L ABG Ionized Calcium (4.5-5.3) mg/dL ABG Glucose (75-99) mg/dL ABG Lactic Acid (0.5-1.6) mmol/L Hemoglobin (11.4-16.0) gm/dL Sodium (137-145) mmol/L Creatinine (0.52-1.04) mg/dL Glucose (74-99) mg/dL POC Glucose (mg/dL) 127 H 124 H 119 H (75-99) mg/dL Calcium (8.4-10.2) mg/dL AST (14-36) U/L Alkaline Phosphatase (38-126) U/L Total Protein (6.2-8.2) g/dL Albumin (3.5-5.0) g/dL Arterial Blood Potassium (3.4-4.5) mmol/L Arterial Blood Glucose (75-99) mg/dL Crossmatch 08/11/20 08/11/20 08/11/20 Range/Units 01:56 03:00 03:00 RBC 2.31 L (3.80-5.40) m/uL Hgb 7.2 L (11.4-16.0) gm/dL Hct 20.4 L (34.0-46.0) % Plt Count 109 L (150-450) k/uL Lymphocytes # 0.3 L (1.0-4.8) k/uL PT 12.1 H (9.0-12.0) sec INR 1.2 H (<1.2) APTT (22.0-30.0) sec ABG pH (7.35-7.45) ABG pCO2 (35-45) mmHg ABG pO2 (83-108) mmHg ABG Total CO2 (19-24) mmol/L ABG O2 Saturation (94-97) % ABG Hematocrit (34.0-46.0) % ABG Sodium (135-146) mmol/L ABG Potassium (3.4-4.5) mmol/L ABG Ionized Calcium (4.5-5.3) mg/dL ABG Glucose (75-99) mg/dL ABG Lactic Acid (0.5-1.6) mmol/L Hemoglobin (11.4-16.0) gm/dL Sodium (137-145) mmol/L Creatinine (0.52-1.04) mg/dL Glucose (74-99) mg/dL POC Glucose (mg/dL) 123 H (75-99) mg/dL Calcium (8.4-10.2) mg/dL AST (14-36) U/L Alkaline Phosphatase (38-126) U/L Total Protein (6.2-8.2) g/dL Albumin (3.5-5.0) g/dL Arterial Blood Potassium (3.4-4.5) mmol/L Arterial Blood Glucose (75-99) mg/dL Crossmatch 08/11/20 08/11/20 08/11/20 Range/Units 03:00 03:01 04:10 RBC (3.80-5.40) m/uL Hgb (11.4-16.0) gm/dL Hct (34.0-46.0) % Plt Count (150-450) k/uL Lymphocytes # (1.0-4.8) k/uL PT (9.0-12.0) sec INR (<1.2) APTT (22.0-30.0) sec ABG pH (7.35-7.45) ABG pCO2 (35-45) mmHg ABG pO2 (83-108) mmHg ABG Total CO2 (19-24) mmol/L ABG O2 Saturation (94-97) % ABG Hematocrit (34.0-46.0) % ABG Sodium (135-146) mmol/L ABG Potassium (3.4-4.5) mmol/L ABG Ionized Calcium (4.5-5.3) mg/dL ABG Glucose (75-99) mg/dL ABG Lactic Acid (0.5-1.6) mmol/L Hemoglobin (11.4-16.0) gm/dL Sodium 133 L (137-145) mmol/L Creatinine (0.52-1.04) mg/dL Glucose 103 H (74-99) mg/dL POC Glucose (mg/dL) 116 H 109 H (75-99) mg/dL Calcium 7.7 L (8.4-10.2) mg/dL AST 37 H (14-36) U/L Alkaline Phosphatase 26 L (38-126) U/L Total Protein 4.4 L (6.2-8.2) g/dL Albumin 2.9 L (3.5-5.0) g/dL Arterial Blood Potassium (3.4-4.5) mmol/L Arterial Blood Glucose (75-99) mg/dL Crossmatch 08/11/20 08/11/20 08/11/20 Range/Units 05:04 06:37 07:24 RBC (3.80-5.40) m/uL Hgb (11.4-16.0) gm/dL Hct (34.0-46.0) % Plt Count (150-450) k/uL Lymphocytes # (1.0-4.8) k/uL PT (9.0-12.0) sec INR (<1.2) APTT (22.0-30.0) sec ABG pH (7.35-7.45) ABG pCO2 (35-45) mmHg ABG pO2 (83-108) mmHg ABG Total CO2 (19-24) mmol/L ABG O2 Saturation (94-97) % ABG Hematocrit (34.0-46.0) % ABG Sodium (135-146) mmol/L ABG Potassium (3.4-4.5) mmol/L ABG Ionized Calcium (4.5-5.3) mg/dL ABG Glucose (75-99) mg/dL ABG Lactic Acid (0.5-1.6) mmol/L Hemoglobin (11.4-16.0) gm/dL Sodium (137-145) mmol/L Creatinine (0.52-1.04) mg/dL Glucose (74-99) mg/dL POC Glucose (mg/dL) 132 H 113 H 133 H (75-99) mg/dL Calcium (8.4-10.2) mg/dL AST (14-36) U/L Alkaline Phosphatase (38-126) U/L Total Protein (6.2-8.2) g/dL Albumin (3.5-5.0) g/dL Arterial Blood Potassium (3.4-4.5) mmol/L Arterial Blood Glucose (75-99) mg/dL Crossmatch 08/11/20 Range/Units 08:17 RBC (3.80-5.40) m/uL Hgb (11.4-16.0) gm/dL Hct (34.0-46.0) % Plt Count (150-450) k/uL Lymphocytes # (1.0-4.8) k/uL PT (9.0-12.0) sec INR (<1.2) APTT (22.0-30.0) sec ABG pH (7.35-7.45) ABG pCO2 (35-45) mmHg ABG pO2 (83-108) mmHg ABG Total CO2 (19-24) mmol/L ABG O2 Saturation (94-97) % ABG Hematocrit (34.0-46.0) % ABG Sodium (135-146) mmol/L ABG Potassium (3.4-4.5) mmol/L ABG Ionized Calcium (4.5-5.3) mg/dL ABG Glucose (75-99) mg/dL ABG Lactic Acid (0.5-1.6) mmol/L Hemoglobin (11.4-16.0) gm/dL Sodium (137-145) mmol/L Creatinine (0.52-1.04) mg/dL Glucose (74-99) mg/dL POC Glucose (mg/dL) 129 H (75-99) mg/dL Calcium (8.4-10.2) mg/dL AST (14-36) U/L Alkaline Phosphatase (38-126) U/L Total Protein (6.2-8.2) g/dL Albumin (3.5-5.0) g/dL Arterial Blood Potassium (3.4-4.5) mmol/L Arterial Blood Glucose (75-99) mg/dL Crossmatch
[2020-08-11 12:23] LABS: Glucose,Whole Blood 136 mg/dL (75-99)
[2020-08-11 14:18] LABS: Glucose,Whole Blood 155 mg/dL (75-99)
[2020-08-11] MEDS ORDERED: FUROSEMIDE 10 MG/ML 2 ML VIAL IV ONE (15:07)
[2020-08-11 15:16] LABS: Glucose,Whole Blood 154 mg/dL (75-99)
[2020-08-11 16:24] LABS: Glucose,Whole Blood 139 mg/dL (75-99)
[2020-08-11 18:00] LABS: Glucose,Whole Blood 200 mg/dL (75-99)
[2020-08-11 19:04] LABS: Glucose,Whole Blood 139 mg/dL (75-99)
[2020-08-11 20:55] LABS: Glucose,Whole Blood 117 mg/dL (75-99)
[2020-08-11] MEDS: SODIUM CHLORIDE 0.9% 1,000 ML IV SCH (22:05)
[2020-08-11] MEDS: SENNOSIDES-DOCUSATE SODIUM 1 EACH TAB PO SCH (22:05)
[2020-08-11 23:30] LABS: Glucose,Whole Blood 157 mg/dL (75-99)
[2020-08-12 00:53] LABS: Glucose,Whole Blood 197 mg/dL (75-99)
[2020-08-12 02:02] LABS: Glucose,Whole Blood 134 mg/dL (75-99)
[2020-08-12 02:54] LABS: Glucose,Whole Blood 107 mg/dL (75-99)
[2020-08-12 04:21] LABS: Glucose,Whole Blood 124 mg/dL (75-99)
[2020-08-12 04:36] LABS: Basophils % (A) 0 %; Eosinophils # (A) 0.6 k/uL (0-0.7); Eosinophils % (A) 6 %; HCT 20.8 % (34.0-46.0); HGB 7.3 gm/dL (11.4-16.0); Lymphocytes # (A) 1.3 k/uL (1.0-4.8); Lymphocytes % (A) 11 %; MCH 31.3 pg (25.0-35.0); MCV 89.4 fL (80.0-100.0); Monocytes # (A) 0.5 k/uL (0-1.0); Monocytes % (A) 4 %; Neutrophils # (A) 9.1 k/uL (1.3-7.7); Neutrophils % (A) 79 %; Platelet Count 112 k/uL (150-450); RBC 2.33 m/uL (3.80-5.40); RDW 14.5 % (11.5-15.5); WBC 11.7 k/uL (3.8-10.6)
[2020-08-12] MEDS: HYDROcodone/APAP 5-325MG 1 EACH TAB PO PRN ×3 (05:00→19:04)
[2020-08-12 05:10] LABS: Albumin 2.9 g/dL (3.5-5.0); Magnesium 2.3 mg/dL (1.6-2.3); Potassium 4.2 mmol/L (3.5-5.1); Total Bilirubin 0.8 mg/dL (0.2-1.3); Total Protein 4.7 g/dL (6.3-8.2)
[2020-08-12 06:29] LABS: Glucose,Whole Blood 133 mg/dL (75-99)
[2020-08-12] MEDS: KETOROLAC 15 MG/ML 1 ML VIAL IVP SCH ×4 (06:33→17:45)
[2020-08-12] MEDS: SODIUM CHLORIDE 0.9% 1,000 ML IV SCH (06:45)
[2020-08-12] MEDS: NOREPINEPHRINE 4 MG in SODIUM CHLORIDE 0.9% 250 ML IV SCH ×3 (07:30)
--- NOTE | 2020-08-12 08:13 | P.PN ---
Subjective Progress Note Date: 08/12/20 Principal diagnosis: 75-year-old female who was admitted to the hospital on August 06. She came in because her sodium was low. I saw the patient in the office for preop clearance in anticipation of bypass grafting. She actually had the surgery today. Currently, she is on the volume assist control mode, rate of 12, tidal volume 350, FiO2 70%, and a PEEP of 5. Plendil same settings but 100%, the pO2 was 243, the pCO2 is 44, and a pH of 7.34. She is currently on saline at 50 mL an hour, nitroglycerin at 5 mcg/m, propofol has been turned off, and she is on norepinephrine at 5 mcg/m. She apparently had a two-vessel bypass grafting. She has a history of hyperlipidemia, hypertension, CAD, skin cancer, arthritis, and possible TIA. In addition, I saw her in the distant past for some interstitial lung disease/pulmonary fibrosis. The patient did have a complete pulmonary function test in my office. The patient's lung function including the FEV1, MVV, and RV/TLC ratio were all excellent. Based on her numbers, I thought she was at low increased operative risk. This was passed onto the cardiothoracic team. The patient surgery included a bypass graft using the left internal mammary artery to the left anterior descending coronary artery, and a reverse saphenous vein graft from aorta to the first obtuse marginal artery. She also had exclusion of the left atrial appendage using a 35 mm AtriClip, endoscopic harvesting of the left greater saphenous vein, intraoperative graft flow measurements using the Medi-Stim system and intraoperative transesophageal echocardiogram. Progress note dated 08/11/2020. 75-year-old female postop day #2, status post two-vessel bypass grafting. Currently, the patient is doing relatively well. She is on 2 L nasal cannula. She is getting lactated Ringer's at 50 mL an hour, norepinephrine at 8.2 mcg/m, insulin at 0.5 units an hour. She was extubated about 4-1/2 hours after leaving the operating room. She had a pretty uneventful night according to her nurse. Her chest x-rays reviewed. This shows typical postoperative changes. I did a preop evaluation on her, and her lung function is mentioned in my consultation were excellent. She does have a history of underlying mild pulmonary fibrosis/interstitial lung disease. Currently, her white count is 7.9, hemoglobin 7.2, hematocrit 20.4, and platelet count 109,000. PT is 12.1, INR 1.2, PTT 41.1. Her last blood gases prior to extubation show a PaO2 of 114, PaC O2 of 43, and a pH of 7.37. Sodium is 133, potassium 4.3, chlorides 104, CO2 24, anion gap 5, BUN 13, and creatinine 0.63. Albumin is 2.9. Calcium is 7.7. Ionized calcium is normal. On 08/12/2020 patient seen in follow-up in the intensive care unit, she is awake and alert, she is in no acute distress, today is postoperative day 3 status post two-vessel bypass grafting. She is currently on 2 L of oxygen pulse ox of 90%, vital signs have been stable. Patient is working on incentive spirometer, today's chest x-ray has been reviewed showing a component of interstitial edema, basilar atelectasis versus edema, relatively stable exam. Patient remains on vasopressor support in the form of the fat currently running at 13 mics per minute, and she did require volume in the form of 5% albumin ordered by cardiothoracic surgery. She received a total of thousand mL of 5% albumin yesterday, with additional 250 of albumin this morning. Patient is significantly positive terms of her weight, +14 kg since admission. Patient still has mediastinal chest tube in place with a total of 370 of thin serosanguineous fluid in the last 24 hours, and left lateral chest tube put out 810 of fluid. Patient's 0.9 normal saline is running at 20 ML per hour. Objective - Vital Signs Vital signs: Vital Signs Temp 98.0 F 08/12/20 04:00 Pulse 82 08/12/20 07:00 Resp 20 08/12/20 07:00 BP 109/62 08/11/20 04:00 Pulse Ox 90 L 08/12/20 07:00 Intake & Output 08/11/20 08/12/20 08/12/20 18:59 06:59 18:59 Intake Total 1825.048 359.133 Output Total 1130 780 Balance 695.048 -420.867 Weight 81.647 kg 95.6 kg Intake: IV 1119.5 79 Albumin Human 25% 50 ml @ 50 Per Protocol IV ONCE ONE Rx#:[id number] Albumin Human 5% 250 ml 250 In Empty Bag 1 bag @ 250 mls/hr IVPB Q1HR PRN Rx#: [id number] CO/CI injectate 30 Calcium Gluconate 2 gm In 100 Sodium Chloride 0.9% 100 ml @ 100 mls/hr IVPB ONCE ONE Rx#:[id number] Kefzol 50 Nitroglycerin-D5w Pmx 50 1.5 mg In Dextrose/Water 1 250ml.bag @ Per Protocol IV ONCE ONE Rx#:[id number] Pressure bag 78 39 Sodium Chloride 0.9% 1, 560 40 000 ml @ 50 mls/hr IV . Q20H [facility] Rx#:[id number] Intake, IV Titration 415.548 40.133 Amount Insulin Regular 100 unit 6.439 17.424 In Sodium Chloride 0.9% 100 ml @ Per Protocol IV .Q0M [facility] Rx#:[id number] Norepinephrine 4 mg In 409.109 22.709 Sodium Chloride 0.9% 250 ml @ 0.05 MCG/KG/MIN 15. 554 mls/hr IV .[id number] [facility] Rx#:[id number] Oral 290 240 Output: Chest Tube Drainage 400 430 Chest Tube Bilateral 50 260 Lower Mediastinal Left Lateral Chest 350 170 Urine 730 350 Other: Voiding Method Indwelling Catheter Indwelling Catheter ABP, PAP, CO, CI - Last Documented Arterial Blood Pressure 111/47 Pulmonary Artery Pressure 37/16 Cardiac Output 6 Cardiac Index 3.4 - Exam GENERAL EXAM: Alert, very pleasant, 75-year-old white female, 2 L of oxygen and a pulse ox between 88 and 90% comfortable in no apparent distress. HEAD: Normocephalic/atraumatic. EYES: Normal reaction of pupils, equal size. Conjunctiva pink, sclera white. NOSE: Clear with pink turbinates. THROAT: No erythema or exudates. NECK: No masses, no JVD, no thyroid enlargement, no adenopathy. CHEST: No chest wall deformity. Symmetrical expansion. Midsternal incision is clean dry and intact, mediastinal and left pleural chest tube site clean dry and intact, tubes are connected to wall suction with evidence of air leak LUNGS: Equal air entry with diminished sounds at the bases CVS: Regular rate and rhythm, normal S1 and S2, no gallops, no murmurs, no rubs ABDOMEN: Soft, nontender. No hepatosplenomegaly, normal bowel sounds, no guarding or rigidity. EXTREMITIES: No clubbing, no edema, no cyanosis, 2+ pulses and upper and lower extremities. MUSCULOSKELETAL: Muscle strength and tone normal. SPINE: No scoliosis or deformity SKIN: No rashes CENTRAL NERVOUS SYSTEM: Alert and oriented -3. No focal deficits, tone is normal in all 4 extremities. PSYCHIATRIC: Alert and oriented -3. Appropriate affect. Intact judgment and insight. - Labs CBC & Chem 7: 08/12/20 04:30 08/12/20 04:30 Labs: Abnormal Lab Results - Last 24 Hours (Table) 08/11/20 08/11/20 08/11/20 Range/Units 08:17 09:21 12:21 WBC (3.8-10.6) k/uL RBC (3.80-5.40) m/uL Hgb (11.4-16.0) gm/dL Hct (34.0-46.0) % Plt Count (150-450) k/uL Neutrophils # (1.3-7.7) k/uL Sodium (137-145) mmol/L Carbon Dioxide (22-30) mmol/L Glucose (74-99) mg/dL POC Glucose (mg/dL) 129 H 135 H 136 H (75-99) mg/dL Calcium (8.4-10.2) mg/dL AST (14-36) U/L Total Protein (6.3-8.2) g/dL Albumin (3.5-5.0) g/dL 08/11/20 08/11/20 08/11/20 Range/Units 14:16 15:14 16:23 WBC (3.8-10.6) k/uL RBC (3.80-5.40) m/uL Hgb (11.4-16.0) gm/dL Hct (34.0-46.0) % Plt Count (150-450) k/uL Neutrophils # (1.3-7.7) k/uL Sodium (137-145) mmol/L Carbon Dioxide (22-30) mmol/L Glucose (74-99) mg/dL POC Glucose (mg/dL) 155 H 154 H 139 H (75-99) mg/dL Calcium (8.4-10.2) mg/dL AST (14-36) U/L Total Protein (6.3-8.2) g/dL Albumin (3.5-5.0) g/dL 08/11/20 08/11/20 08/11/20 Range/Units 17:58 19:02 20:54 WBC (3.8-10.6) k/uL RBC (3.80-5.40) m/uL Hgb (11.4-16.0) gm/dL Hct (34.0-46.0) % Plt Count (150-450) k/uL Neutrophils # (1.3-7.7) k/uL Sodium (137-145) mmol/L Carbon Dioxide (22-30) mmol/L Glucose (74-99) mg/dL POC Glucose (mg/dL) 200 H 139 H 117 H (75-99) mg/dL Calcium (8.4-10.2) mg/dL AST (14-36) U/L Total Protein (6.3-8.2) g/dL Albumin (3.5-5.0) g/dL 08/11/20 08/12/20 08/12/20 Range/Units 23:29 00:52 02:00 WBC (3.8-10.6) k/uL RBC (3.80-5.40) m/uL Hgb (11.4-16.0) gm/dL Hct (34.0-46.0) % Plt Count (150-450) k/uL Neutrophils # (1.3-7.7) k/uL Sodium (137-145) mmol/L Carbon Dioxide (22-30) mmol/L Glucose (74-99) mg/dL POC Glucose (mg/dL) 157 H 197 H 134 H (75-99) mg/dL Calcium (8.4-10.2) mg/dL AST (14-36) U/L Total Protein (6.3-8.2) g/dL Albumin (3.5-5.0) g/dL 08/12/20 08/12/20 08/12/20 Range/Units 02:53 04:19 04:30 WBC 11.7 H (3.8-10.6) k/uL RBC 2.33 L (3.80-5.40) m/uL Hgb 7.3 L (11.4-16.0) gm/dL Hct 20.8 L (34.0-46.0) % Plt Count 112 L (150-450) k/uL Neutrophils # 9.1 H (1.3-7.7) k/uL Sodium (137-145) mmol/L Carbon Dioxide (22-30) mmol/L Glucose (74-99) mg/dL POC Glucose (mg/dL) 107 H 124 H (75-99) mg/dL Calcium (8.4-10.2) mg/dL AST (14-36) U/L Total Protein (6.3-8.2) g/dL Albumin (3.5-5.0) g/dL 08/12/20 08/12/20 Range/Units 04:30 06:27 WBC (3.8-10.6) k/uL RBC (3.80-5.40) m/uL Hgb (11.4-16.0) gm/dL Hct (34.0-46.0) % Plt Count (150-450) k/uL Neutrophils # (1.3-7.7) k/uL Sodium 131 L (137-145) mmol/L Carbon Dioxide 20 L (22-30) mmol/L Glucose 123 H (74-99) mg/dL POC Glucose (mg/dL) 133 H (75-99) mg/dL Calcium 8.0 L (8.4-10.2) mg/dL AST 38 H (14-36) U/L Total Protein 4.7 L (6.3-8.2) g/dL Albumin 2.9 L (3.5-5.0) g/dL Assessment and Plan Plan: #1. Status post two-vessel bypass grafting, exclusion of left atrial appendage, and intraoperative transesophageal echocardiogram, postoperative day #3. #2. Routine postoperative ventilator management, with extubation 4-1/2 hours after leaving the operating room. #3. Acute hypoxic respiratory failure related to hypoventilation, atelectasis and fluid overload #4. Hypotension, likely hypovolemic related to postoperative blood loss anemia, expected outcome of bypass surgery #5. History of stable/mild pulmonary fibrosis, with excellent preoperative lung function, including FEV1, MVV, and RV/TLC ratio. #6. Hyponatremia, improving #7. History of coronary artery disease. #8. History of hyperlipidemia. #9. History of hypertension. #10. History of skin cancer. #11. History of arthritis. #12. Status post bilateral cataract removal with lens implants. #13. History of cervical fusion. Plan: Continue encouraging deep breathing and coughing, today's chest x-ray has been reviewed still showing fluid volume overload, interstitial edema, bilateral pleural effusions and adjacent atelectasis. Patient remains hypotensive requiring vasopressor support, will defer to CT surgery on the decision of diuretics, and titrate FiO2 to keep O2 sat at 92-94%. Close hemodynamic monitoring, we'll continue to closely follow with CT surgery, normal monitoring intensive care unit. Today's labs have been reviewed. If her breathing worsens may have to consider BiPAP support. Patient is breathing comfortably right now. Monitor daily labs, electrolytes and renal profile. We'll follow I performed a history & physical examination of the patient and discussed their management with my nurse practitioner, Carolina Post. I reviewed the nurse practitioner's note and agree with the documented findings and plan of care. Lung sounds are positive for diminished breath sounds. The findings and the impression was discussed with the patient. I attest to the documentation by the nurse practitioner. Time with Patient: Greater than 30
[2020-08-12] MEDS ORDERED: FUROSEMIDE 10 MG/ML 2 ML VIAL IV ONE (08:17)
--- NOTE | 2020-08-12 08:18 | XR ---
EXAMINATION TYPE: XR chest 1V portable DATE OF EXAM: 08/12/2020 COMPARISON: Chest x-ray 08-11-20 HISTORY: Postop cardiac surgery TECHNIQUE: Single frontal view of the chest is obtained. FINDINGS: Patient is post median sternotomy and left atrial appendage clipping placement. Cardiac me diastinal silhouette is stable. Right jugular central venous catheter has been removed, sheath remain s in place. Median sternal drains, left chest tube remain in place. No sizable pneumothorax. Patchy b asilar density persists. IMPRESSION: Interval central venous catheter removal. Similar parenchymal changes, difficult to excl ude effusion, basilar atelectasis, there is some improvement in aeration, lung volumes.
[2020-08-12 08:31] LABS: Glucose,Whole Blood 110 mg/dL (75-99)
--- NOTE | 2020-08-12 08:50 | P.PN ---
Subjective Progress Note Date: 08/12/20 Principal diagnosis: Coronary artery disease with left main disease, preserved systolic function, preoperative hyponatremia warranting admission for correction. Previous medical history of pulmonary fibrosis, asthma, hypertension, hyperlipidemia, previous tobacco dependence with preoperative FEV1 107% of predicted, obesity, osteoarthritis, cervical stenosis post anterior cervical decompression with discectomy and fusion, TIA in childhood, and family history of premature sal nary artery disease POD #2 double vessel coronary artery bypass grafting using the left internal ma mmary artery to the left anterior descending artery, reverse saphenous vein graft from the aorta to the first obtuse marginal artery, exclusion of the left atrial appendage using a 35 mm AtriClip, endoscopic harvesting of the left greater saphenous vein from the groin to just below the knee level, i ntraoperative graft flow measurements using the Everloop system, intraoperative transesophageal echocardiogram and epi-aortic scanning. Postoperative acute blood loss anemia, expected given hemodilution and cardiopulmonary bypass pump Postoperative hypotension requiring vasopressor support, expected vasoplegia due to preoperative ARB use The patient is currently sitting up in a recliner in the intensive care unit in no acute distress. She remains in sinus rhythm, hypotensive requiring IV levo, although nursing staff is getting better cuff pressures and coming down on levo. She states postoperative pain is controlled on current medication regimen, does complain of shortness of breath especially with activity. Attempting incentive spirometry use. Right internal jugular Cordis, right radial arterial line present. She did receive IV Lasix yesterday afternoon with good urine output, h owever she is fluid volume positive. Objective - Vital Signs Vital signs: Vital Signs Temp 98.0 F 08/12/20 04:00 Pulse 82 08/12/20 07:00 Resp 20 08/12/20 07:00 BP 109/62 08/11/20 04:00 Pulse Ox 90 L 08/12/20 07:00 Intake & Output 08/11/20 08/12/20 08/12/20 18:59 06:59 18:59 Intake Total 1825.048 359.133 3 Output Total 1130 780 Balance 695.048 -420.867 3 Weight 81.647 kg 95.6 kg Intake: IV 1119.5 79 3 Albumin Human 25% 50 ml @ 50 Per Protocol IV ONCE ONE Rx#:[id number] Albumin Human 5% 250 ml 250 In Empty Bag 1 bag @ 250 mls/hr IVPB Q1HR PRN Rx#: [id number] CO/CI injectate 30 Calcium Gluconate 2 gm In 100 Sodium Chloride 0.9% 100 ml @ 100 mls/hr IVPB ONCE ONE Rx#:[id number] Kefzol 50 Nitroglycerin-D5w Pmx 50 1.5 mg In Dextrose/Water 1 250ml.bag @ Per Protocol IV ONCE ONE Rx#:[id number] Pressure bag 78 39 3 Sodium Chloride 0.9% 1, 560 40 000 ml @ 50 mls/hr IV . Q20H [facility] Rx#:[id number] Intake, IV Titration 415.548 40.133 Amount Insulin Regular 100 unit 6.439 17.424 In Sodium Chloride 0.9% 100 ml @ Per Protocol IV .Q0M [facility] Rx#:[id number] Norepinephrine 4 mg In 409.109 22.709 Sodium Chloride 0.9% 250 ml @ 0.05 MCG/KG/MIN 15. 554 mls/hr IV .[id number] [facility] Rx#:[id number] Oral 290 240 Output: Chest Tube Drainage 400 430 Chest Tube Bilateral 50 260 Lower Mediastinal Left Lateral Chest 350 170 Urine 730 350 Other: Voiding Method Indwelling Catheter Indwelling Catheter ABP, PAP, CO, CI - Last Documented Arterial Blood Pressure 111/47 Pulmonary Artery Pressure 37/16 Cardiac Output 6 Cardiac Index 3.4 - Constitutional General appearance: Present: cooperative, no acute distress, obese - Respiratory Details: Lungs sounds very diminished in the bases bilaterally. Respirations even, nonlabored. Currently on 2 L nasal cannula with oxygen saturation 90%. Able to achieve 500 mL on incentive spirometry. Strong productive cough. Mediastinal chest tube present to continuous wall suction, 170 mL serosanguineous drainage in the last 24 hours. Left pleural chest tube present to continuous wall suction, 600 mL serosanguineous drainage in the last 24 hours. No air leaks present. - Cardiovascular Details: S1, S2 present. Regular rate and rhythm, sinus rhythm on telemetry with heart rate in the 80s. Sternum stable. A/V epicardial pacemaker wires present, connected to generator, AAI mode with backup rate 50 bpm. Palpable peripheral pulses bilaterally. Generalized edema present. No calf pain or tenderness noted. Antiembolism stockings, SCDs present. Right internal jugular Cordis, right radial arterial line present. - Gastrointestinal Gastrointestinal Comment(s): Abdomen soft, nontender, nondistended. Active bowel sounds present 4 quadrants. Tolerating full liquids. Positive flatus, negative bowel movement - Integumentary Integumentary Comment(s): Yu present draining clear, yellow urine. Output 40-60 mL/h overnight, 510 mL after Lasix given yesterday, 1080 mL in the last 24 hours - Neurologic Neurologic: Present: CNII-XII intact - Musculoskeletal Musculoskeletal: Present: gait normal, strength equal bilaterally - Psychiatric Psychiatric: Present: A&O x's 3, appropriate affect, intact judgment & insight - Allied health notes Allied health notes reviewed: nursing - Labs CBC & Chem 7: 08/12/20 04:30 08/12/20 04:30 Labs: Abnormal Lab Results - Last 24 Hours (Table) 08/11/20 08/11/20 08/11/20 Range/Units 09:21 12:21 14:16 WBC (3.8-10.6) k/uL RBC (3.80-5.40) m/uL Hgb (11.4-16.0) gm/dL Hct (34.0-46.0) % Plt Count (150-450) k/uL Neutrophils # (1.3-7.7) k/uL Sodium (137-145) mmol/L Carbon Dioxide (22-30) mmol/L Glucose (74-99) mg/dL POC Glucose (mg/dL) 135 H 136 H 155 H (75-99) mg/dL Calcium (8.4-10.2) mg/dL AST (14-36) U/L Total Protein (6.3-8.2) g/dL Albumin (3.5-5.0) g/dL 08/11/20 08/11/20 08/11/20 Range/Units 15:14 16:23 17:58 WBC (3.8-10.6) k/uL RBC (3.80-5.40) m/uL Hgb (11.4-16.0) gm/dL Hct (34.0-46.0) % Plt Count (150-450) k/uL Neutrophils # (1.3-7.7) k/uL Sodium (137-145) mmol/L Carbon Dioxide (22-30) mmol/L Glucose (74-99) mg/dL POC Glucose (mg/dL) 154 H 139 H 200 H (75-99) mg/dL Calcium (8.4-10.2) mg/dL AST (14-36) U/L Total Protein (6.3-8.2) g/dL Albumin (3.5-5.0) g/dL 08/11/20 08/11/20 08/11/20 Range/Units 19:02 20:54 23:29 WBC (3.8-10.6) k/uL RBC (3.80-5.40) m/uL Hgb (11.4-16.0) gm/dL Hct (34.0-46.0) % Plt Count (150-450) k/uL Neutrophils # (1.3-7.7) k/uL Sodium (137-145) mmol/L Carbon Dioxide (22-30) mmol/L Glucose (74-99) mg/dL POC Glucose (mg/dL) 139 H 117 H 157 H (75-99) mg/dL Calcium (8.4-10.2) mg/dL AST (14-36) U/L Total Protein (6.3-8.2) g/dL Albumin (3.5-5.0) g/dL 08/12/20 08/12/20 08/12/20 Range/Units 00:52 02:00 02:53 WBC (3.8-10.6) k/uL RBC (3.80-5.40) m/uL Hgb (11.4-16.0) gm/dL Hct (34.0-46.0) % Plt Count (150-450) k/uL Neutrophils # (1.3-7.7) k/uL Sodium (137-145) mmol/L Carbon Dioxide (22-30) mmol/L Glucose (74-99) mg/dL POC Glucose (mg/dL) 197 H 134 H 107 H (75-99) mg/dL Calcium (8.4-10.2) mg/dL AST (14-36) U/L Total Protein (6.3-8.2) g/dL Albumin (3.5-5.0) g/dL 08/12/20 08/12/20 08/12/20 Range/Units 04:19 04:30 04:30 WBC 11.7 H (3.8-10.6) k/uL RBC 2.33 L (3.80-5.40) m/uL Hgb 7.3 L (11.4-16.0) gm/dL Hct 20.8 L (34.0-46.0) % Plt Count 112 L (150-450) k/uL Neutrophils # 9.1 H (1.3-7.7) k/uL Sodium 131 L (137-145) mmol/L Carbon Dioxide 20 L (22-30) mmol/L Glucose 123 H (74-99) mg/dL POC Glucose (mg/dL) 124 H (75-99) mg/dL Calcium 8.0 L (8.4-10.2) mg/dL AST 38 H (14-36) U/L Total Protein 4.7 L (6.3-8.2) g/dL Albumin 2.9 L (3.5-5.0) g/dL 08/12/20 08/12/20 Range/Units 06:27 08:30 WBC (3.8-10.6) k/uL RBC (3.80-5.40) m/uL Hgb (11.4-16.0) gm/dL Hct (34.0-46.0) % Plt Count (150-450) k/uL Neutrophils # (1.3-7.7) k/uL Sodium (137-145) mmol/L Carbon Dioxide (22-30) mmol/L Glucose (74-99) mg/dL POC Glucose (mg/dL) 133 H 110 H (75-99) mg/dL Calcium (8.4-10.2) mg/dL AST (14-36) U/L Total Protein (6.3-8.2) g/dL Albumin (3.5-5.0) g/dL - Imaging and Cardiology Chest x-ray: report reviewed, image reviewed Assessment and Plan Assessment: 1. 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 Hyponatremia, sodium level 120 just prior to admission, resolved 3. History of pulmonary fibrosis, asthma 4. Hypertension 5. Hyperlipidemia, treated, cholesterol 186, LDL 98 6. Previous tobacco dependence, preoperative FEV1 107% 7. Obesity 8. Osteoarthritis 9. Cervical stenosis post anterior cervical decompression, discectomy and fusion 10. TIA as a child around age 11 11. Family history of premature coronary artery disease with father diagnosed in his early 50s 12. Postoperative acute blood loss anemia, expected, status post transfusion 13. Postoperative hypotension, expected Plan: 1. Continue aspirin, statin, Plavix, beta sisi therapy. Will increase beta sisi therapy as tolerated. 2. Wean levo as tolerated. Midodrine added for blood pressure improvement 3. Wean O2 as tolerated. Encourage incentive spirometry is 10 times every hour while awake. Bronchodilators per pulmonology 4. Increase activity, ambulate as tolerated. PT/OT/cardiac rehab following 5. Will monitor daily labs and x-rays. Electrolyte replacement per protocol. No further transfusion at this point. Will give 20 mg IV push Lasix 1 today, may repeat dose later this afternoon 6. GI/DVT prophylaxis 7. Insulin management per primary care service. Patient is not diabetic, hemoglobin A1c 5.5% 8. Will discontinue mediastinal chest tubes, continue left pleural chest tube for another 24 hours 9. Discontinue Yu catheter later today. May bladder scan and straight cath for greater than 300 mL residual 10. Strict accurate intake and output. Daily weights 11. More recommendations to follow Time with Patient: Greater than 30
[2020-08-12] MEDS: IPRATROPIUM-ALBUTEROL 3 ML NEB INHALATION SCH ×4 (09:29→21:47)
[2020-08-12] MEDS: MIDODRINE 5 MG TAB PO SCH ×3 (09:29→16:35)
[2020-08-12] MEDS: PANTOPRAZOLE 40 MG TABLET PO SCH (09:29)
[2020-08-12] MEDS: HEPARIN SODIUM,PORCINE 5,000 UNIT/ML 1 ML VIAL SQ SCH ×3 (09:29→16:36)
[2020-08-12] MEDS: ASPIRIN 325 MG TAB PO SCH (09:30)
[2020-08-12] MEDS: CLOPIDOGREL 75 MG TAB PO SCH (09:30)
[2020-08-12] MEDS: METOPROLOL TARTRATE 12.5 MG TAB PO SCH ×2 (09:30→20:42)
[2020-08-12] MEDS: ATORVASTATIN 40 MG TAB PO SCH (09:30)
[2020-08-12] MEDS: INSULIN ASPART (NovoLOG) 100 UNIT/ML VIAL SQ SCH ×4 (09:46→20:41)
--- NOTE | 2020-08-12 11:17 | P.PN ---
Subjective Progress Note Date: 08/12/20 HISTORY OF PRESENT ILLNESS This is a 75-year-old female patient of Dr. Avila and Dr. Garcia with a past medical history of pulmonary fibrosis, asthma, hypertension, hyperlipidemia, obesity, osteoarthritis, cervical stenosis status post anterior cervical decompression, discectomy and fusion. Patient recently underwent stress testing which demonstrated anterior wall ischemia with small reversible defect. It was recommended to undergo heart catheterization which was completed and showed calcified coronary artery, significant distal left main by IVUS, mild to moderate disease of the left anterior descending artery. Transthoracic echo was completed showed EF of 55%, mild mitral regurgitation, mild tricuspid regurgitation. Patient was then referred for coronary artery bypass grafting. During her outpatient preoperative workup patient was noted to have hyponatremia with sodium level of 120. She was advised to go to the emergency department to be admitted to correct her sodium level. Patient reports she's asymptomatic, she denies any chest pain, palpitations, shortness of breath, fever, chills, no nausea, vomiting, diarrhea, or diarrhea. Consult placed for nephrology, she was started on 0.9 normal saline at 75 mL per hour. 08/07: Patient has been afebrile, heart rate 62, blood pressure 132/70, pulse ox 90% on room air. Sodium today is at 125. Potassium 4.0, chloride 90, CO2 20, BUN 20 creatinine 0.7. Patient is followed by nephrology and received sodium chloride tablet 2 g once this morning. Repeat sodium level at 2 PM, cortisol level ordered and TSH. Patient states that she is feeling well today. She denies any lightheadedness or dizziness. No chest pain or shortness of breath. She is scheduled for open heart surgery on Monday and anticipates that she will be here through the weekend. 08/08 sodium is much better, instructions were for discontinuation of IV fluids, currently running at 75 mL an hour, sodium 135, seen by nephrology, patient is scheduled to have open heart surgery on Monday, and the would consult Dr. Sethi, and Dr. Harrison, who would assist with preop CABG management, patient denies any nausea vomiting, blood pressure is significantly much better today, no chest pain no difficulty breathing, but pressure fluctuates between 99 systolic to 161 systolic, heart rate stable at 60-69, creatinine at 0.08 urinalysis negative, patient continues to be off hydrochlorothiazide 08/09 patient feels well today, no new concerns of chest pain shortness of breath no lightheadedness no dizziness, no GI losses no pleurisy, no dysuria. Patient's serum sodium is 138, electrolytes are normal creatinine is 0.8, expected to proceed with CABG as scheduled for August 10Monday morning. board, comes felt with cardiology to assist with postcardiac management in the morning. She will be made nothing by mouth post midnight tonight 08/10: Patient is gone this morning for CABG. Patient was not seen and evaluated at this time. 08/11: Patient is status post CABG, left internal mammary artery to the left anterior descending artery, reverse saphenous vein graft from the aorta to the first obtuse marginal artery, postop day #1. Patient was successfully extubated. Patient is seen today in the intensive care unit. Patient complains of generalized fatigue and weakness. Temperature max 100.6, heart rate in the 70s and 80s, respiratory rate 25, blood pressure 91/39, pulse ox 93% on 2 L nasal cannula. WBC 7.9, hemoglobin 7.2, platelet count 109. INR is 1.2. Sodium 133 otherwise elect lites are normal, creatinine 0.63. Total bilirubin 0.6. AST 37, lymphocytes 26. Repeat chest x-ray reveals difficult to exclude component of volume overload, interstitial edema, there may be basilar atelectasis versus edema, associated effusion. Patient is reaching 500 on incentive spirometry. 08/12: Patient remains in the intensive care unit and looks more comfortable today. Patient is resting in a chair. Her pulse ox is running 88-90% on 2 L but respiratory status appears stable. She's been afebrile, heart rate in the 80s, blood pressure 111/47. Blood sugars have been running 107-133. Insulin drip will be discontinued and patient placed on NovoLog scale every 4 hours until nighttime and transition to before meals at bedtime. Norepinephrine to be weaned. IV lasix was ordered this morning. WBC 11.7, hemoglobin 7.3, platelet count 112. Sodium 131, creatinine 0.82. Mediastinal chest tube to be removed today and Yu to be removed today. REVIEW OF SYSTEMS Constitutional: Reports fatigue, Denies chills, Denies fever, Denies lethargy, reports mild fatigue. Ears, nose, mouth and throat: Denies headache, Denies nasal congestion, Denies nasal discharge, Denies sinus pain, Denies sinus pressure, Denies sore throat Cardiovascular: Reports chest discomfort, Denies edema, Denies irregular heart beat, Denies leg edema, Denies orthopnea, Denies palpitations, Denies shortness of breath, Denies syncope Respiratory: Denies congestion, Denies cough, Denies pain, Denies respiratory infections, Denies wheezing Gastrointestinal: Denies abdominal pain, Denies constipation, Denies diarrhea, Denies dyspepsia, Denies heartburn, Denies hematemesis, Denies loss of appetite, Denies nausea, Denies vomiting Genitourinary: Denies dysuria, Denies hematuria, Denies urgency Musculoskeletal: Denies arm numbness/tingling, Denies atrophy, Denies fractures, Denies frequent falls, Denies gait dysfunction, Denies myalgias, Denies neck pain, Denies neck stiffness Integumentary: Denies dryness, Denies lesions, Denies pruritus, Denies sores, Denies wounds Neurological: Denies confusion, Denies gait dysfunction, Denies headaches, Denies paralysis, Denies seizures, Denies spasticity, Denies syncope, Denies vertigo Psychiatric: Denies anxiety, Denies confusion, Denies irritability, Denies mood swings, Denies paranoia, Denies suicidal ideation Endocrine: Denies excessive sweating, Denies fatigue, Denies high blood sugars, Denies palpitations, Denies polyphagia, Denies polyuria, Denies thyroid mass PHYSICAL EXAMINATION Gen: This is a 75-year-old female. She is sitting in recliner and appears to be comfortable and in no acute distress. HEENT: Head is atraumatic, normocephalic. Pupils equal, round. Sclerae is anicteric. Right-sided Cordis in place. NECK: Supple. No JVD. No lymphadenopathy. No thyromegaly. LUNGS: Diminished bilaterally. No intercostal retractions. HEART: Regular rate and rhythm. No murmur. Mediastinal chest tube and left pleural chest tube. ABDOMEN: Soft. Bowel sounds are present. No masses. No tenderness. Yu catheter in place. EXTREMITIES: No pedal edema. No calf tenderness. Dorsalis pedis palpable bilaterally. NEUROLOGICAL: Patient is awake, alert and oriented x3. Cranial nerves 2 through 12 are grossly intact. ASSESSMENT AND PLAN 1. Hyponatremia, resolved. Hydrochlorothiazide is on hold. Nephrology is following. 2. Coronary artery disease with left main disease status post CABG. Continue current management per cardiothoracic team. 3. History of pulmonary fibrosis. Continue duo nebs and albuterol 4. Asthma, mild intermittent. Continue ipratropium albuterol nebulizers 5. Hyperlipidemia. Continue simvastatin 20 mg daily 6. Hypertension. Currently hypotensive. Continue Lopressor 12.5 mg twice daily. 7. GI prophylaxis. Pantoprazole 8. DVT prophylaxis: SCDs 9. Blood sugar management in a nondiabetic. Insulin drip will be discontinued. Patient started on insulin scale every 4 hours until tonight and then transition to ACHS. DISCHARGE PLAN Home with homecare. Impression and plan of care have been directed as dictated by the signing physician. Monica Fragoso nurse practitioner acting as scribe for signing physician. Objective - Vital Signs Vital signs: Vital Signs Temp 98.0 F 08/12/20 04:00 Pulse 82 08/12/20 07:00 Resp 20 08/12/20 07:00 BP 109/62 08/11/20 04:00 Pulse Ox 90 L 08/12/20 07:00 Intake & Output 08/11/20 08/12/20 08/12/20 18:59 06:59 18:59 Intake Total 1825.048 359.133 8.303 Output Total 1130 780 Balance 695.048 -420.867 8.303 Weight 81.647 kg 95.6 kg Intake: IV 1119.5 79 3 Albumin Human 25% 50 ml @ 50 Per Protocol IV ONCE ONE Rx#:[id number] Albumin Human 5% 250 ml 250 In Empty Bag 1 bag @ 250 mls/hr IVPB Q1HR PRN Rx#: [id number] CO/CI injectate 30 Calcium Gluconate 2 gm In 100 Sodium Chloride 0.9% 100 ml @ 100 mls/hr IVPB ONCE ONE Rx#:[id number] Kefzol 50 Nitroglycerin-D5w Pmx 50 1.5 mg In Dextrose/Water 1 250ml.bag @ Per Protocol IV ONCE ONE Rx#:[id number] Pressure bag 78 39 3 Sodium Chloride 0.9% 1, 560 40 000 ml @ 50 mls/hr IV . Q20H [facility] Rx#:[id number] Intake, IV Titration 415.548 40.133 5.303 Amount Insulin Regular 100 unit 6.439 17.424 5.303 In Sodium Chloride 0.9% 100 ml @ Per Protocol IV .Q0M [facility] Rx#:[id number] Norepinephrine 4 mg In 409.109 22.709 Sodium Chloride 0.9% 250 ml @ 0.05 MCG/KG/MIN 15. 554 mls/hr IV .[id number] [facility] Rx#:[id number] Oral 290 240 Output: Chest Tube Drainage 400 430 Chest Tube Bilateral 50 260 Lower Mediastinal Left Lateral Chest 350 170 Urine 730 350 Other: Voiding Method Indwelling Catheter Indwelling Catheter ABP, PAP, CO, CI - Last Documented Arterial Blood Pressure 111/47 Pulmonary Artery Pressure 37/16 Cardiac Output 6 Cardiac Index 3.4 - Labs CBC & Chem 7: 08/12/20 04:30 08/12/20 04:30 Labs: Abnormal Lab Results - Last 24 Hours (Table) 08/11/20 08/11/20 08/11/20 Range/Units 09:21 12:21 14:16 WBC (3.8-10.6) k/uL RBC (3.80-5.40) m/uL Hgb (11.4-16.0) gm/dL Hct (34.0-46.0) % Plt Count (150-450) k/uL Neutrophils # (1.3-7.7) k/uL Sodium (137-145) mmol/L Carbon Dioxide (22-30) mmol/L Glucose (74-99) mg/dL POC Glucose (mg/dL) 135 H 136 H 155 H (75-99) mg/dL Calcium (8.4-10.2) mg/dL AST (14-36) U/L Total Protein (6.3-8.2) g/dL Albumin (3.5-5.0) g/dL 08/11/20 08/11/20 08/11/20 Range/Units 15:14 16:23 17:58 WBC (3.8-10.6) k/uL RBC (3.80-5.40) m/uL Hgb (11.4-16.0) gm/dL Hct (34.0-46.0) % Plt Count (150-450) k/uL Neutrophils # (1.3-7.7) k/uL Sodium (137-145) mmol/L Carbon Dioxide (22-30) mmol/L Glucose (74-99) mg/dL POC Glucose (mg/dL) 154 H 139 H 200 H (75-99) mg/dL Calcium (8.4-10.2) mg/dL AST (14-36) U/L Total Protein (6.3-8.2) g/dL Albumin (3.5-5.0) g/dL 08/11/20 08/11/20 08/11/20 Range/Units 19:02 20:54 23:29 WBC (3.8-10.6) k/uL RBC (3.80-5.40) m/uL Hgb (11.4-16.0) gm/dL Hct (34.0-46.0) % Plt Count (150-450) k/uL Neutrophils # (1.3-7.7) k/uL Sodium (137-145) mmol/L Carbon Dioxide (22-30) mmol/L Glucose (74-99) mg/dL POC Glucose (mg/dL) 139 H 117 H 157 H (75-99) mg/dL Calcium (8.4-10.2) mg/dL AST (14-36) U/L Total Protein (6.3-8.2) g/dL Albumin (3.5-5.0) g/dL 08/12/20 08/12/20 08/12/20 Range/Units 00:52 02:00 02:53 WBC (3.8-10.6) k/uL RBC (3.80-5.40) m/uL Hgb (11.4-16.0) gm/dL Hct (34.0-46.0) % Plt Count (150-450) k/uL Neutrophils # (1.3-7.7) k/uL Sodium (137-145) mmol/L Carbon Dioxide (22-30) mmol/L Glucose (74-99) mg/dL POC Glucose (mg/dL) 197 H 134 H 107 H (75-99) mg/dL Calcium (8.4-10.2) mg/dL AST (14-36) U/L Total Protein (6.3-8.2) g/dL Albumin (3.5-5.0) g/dL 02/03/21 02/03/21 02/03/21 Range/Units 04:19 04:30 04:30 WBC 11.7 H (3.8-10.6) k/uL RBC 2.33 L (3.80-5.40) m/uL Hgb 7.3 L (11.4-16.0) gm/dL Hct 20.8 L (34.0-46.0) % Plt Count 112 L (150-450) k/uL Neutrophils # 9.1 H (1.3-7.7) k/uL Sodium 131 L (137-145) mmol/L Carbon Dioxide 20 L (22-30) mmol/L Glucose 123 H (74-99) mg/dL POC Glucose (mg/dL) 124 H (75-99) mg/dL Calcium 8.0 L (8.4-10.2) mg/dL AST 38 H (14-36) U/L Total Protein 4.7 L (6.3-8.2) g/dL Albumin 2.9 L (3.5-5.0) g/dL 08/12/20 08/12/20 Range/Units 06:27 08:30 WBC (3.8-10.6) k/uL RBC (3.80-5.40) m/uL Hgb (11.4-16.0) gm/dL Hct (34.0-46.0) % Plt Count (150-450) k/uL Neutrophils # (1.3-7.7) k/uL Sodium (137-145) mmol/L Carbon Dioxide (22-30) mmol/L Glucose (74-99) mg/dL POC Glucose (mg/dL) 133 H 110 H (75-99) mg/dL Calcium (8.4-10.2) mg/dL AST (14-36) U/L Total Protein (6.3-8.2) g/dL Albumin (3.5-5.0) g/dL
[2020-08-12 12:02] LABS: Glucose,Whole Blood 184 mg/dL (75-99)
--- NOTE | 2020-08-12 13:31 | P.PN ---
Subjective Patient sitting comfortably in a chair. She does not appear short of breath. Heart rate 92 beats a minute , she is off pressors She denies any chest discomfort no undue shortness of breath no lower extremity edema Respirations 18 afebrile 98.4F Blood pressure is 104/73 mmHg Breath sounds are reduced bilaterally with some fine crackles at both bases Heart sounds are soft and distant Impression Left main disease left circumflex disease Status post coronary artery bypass grafting with HOLLAND to the LAD and SVG to left circumflex Plan Continue dual antiplatelet therapy line continue low-dose metoprolol She is on Midrin Norepinephrine has been discontinued Continue statins Objective - Vital Signs Vital signs: Vital Signs Temp 98.4 F 08/12/20 12:00 Pulse 76 08/12/20 12:51 Resp 18 08/12/20 12:00 BP 89/54 08/12/20 12:00 Pulse Ox 94 L 08/12/20 12:00 Intake & Output 08/11/20 08/12/20 08/12/20 18:59 06:59 18:59 Intake Total 1825.048 589.594 237.714 Output Total 1130 780 800 Balance 695.048 -190.406 -562.286 Weight 81.647 kg 95.6 kg Intake: IV 1119.5 79 58 Albumin Human 25% 50 ml @ 50 Per Protocol IV ONCE ONE Rx#:[id number] Albumin Human 5% 250 ml 250 In Empty Bag 1 bag @ 250 mls/hr IVPB Q1HR PRN Rx#: [id number] CO/CI injectate 30 Calcium Gluconate 2 gm In 100 Sodium Chloride 0.9% 100 ml @ 100 mls/hr IVPB ONCE ONE Rx#:[id number] Kefzol 50 Nitroglycerin-D5w Pmx 50 1.5 mg In Dextrose/Water 1 250ml.bag @ Per Protocol IV ONCE ONE Rx#:[id number] Pressure bag 78 39 18 Sodium Chloride 0.9% 1, 560 40 40 000 ml @ 20 mls/hr IV . Q24H [facility] Rx#:[id number] Intake, IV Titration 415.548 270.594 179.714 Amount Insulin Regular 100 unit 6.439 17.424 5.303 In Sodium Chloride 0.9% 100 ml @ Per Protocol IV .Q0M [facility] Rx#:[id number] Norepinephrine 4 mg In 409.109 253.170 174.411 Sodium Chloride 0.9% 250 ml @ 0.05 MCG/KG/MIN 15. 554 mls/hr IV .[id number] [facility] Rx#:[id number] Oral 290 240 Output: Chest Tube Drainage 400 430 80 Chest Tube Bilateral 50 260 20 Lower Mediastinal Left Lateral Chest 350 170 60 Urine 730 350 720 Other: Voiding Method Indwelling Catheter Indwelling Catheter ABP, PAP, CO, CI - Last Documented Arterial Blood Pressure 95/50 Pulmonary Artery Pressure 37/16 Cardiac Output 6 Cardiac Index 3.4 - Labs CBC & Chem 7: 08/12/20 04:30 08/12/20 04:30 Labs: Abnormal Lab Results - Last 24 Hours (Table) 08/11/20 08/11/20 08/11/20 Range/Units 14:16 15:14 16:23 WBC (3.8-10.6) k/uL RBC (3.80-5.40) m/uL Hgb (11.4-16.0) gm/dL Hct (34.0-46.0) % Plt Count (150-450) k/uL Neutrophils # (1.3-7.7) k/uL Sodium (137-145) mmol/L Carbon Dioxide (22-30) mmol/L Glucose (74-99) mg/dL POC Glucose (mg/dL) 155 H 154 H 139 H (75-99) mg/dL Calcium (8.4-10.2) mg/dL AST (14-36) U/L Total Protein (6.3-8.2) g/dL Albumin (3.5-5.0) g/dL 08/11/20 08/11/20 08/11/20 Range/Units 17:58 19:02 20:54 WBC (3.8-10.6) k/uL RBC (3.80-5.40) m/uL Hgb (11.4-16.0) gm/dL Hct (34.0-46.0) % Plt Count (150-450) k/uL Neutrophils # (1.3-7.7) k/uL Sodium (137-145) mmol/L Carbon Dioxide (22-30) mmol/L Glucose (74-99) mg/dL POC Glucose (mg/dL) 200 H 139 H 117 H (75-99) mg/dL Calcium (8.4-10.2) mg/dL AST (14-36) U/L Total Protein (6.3-8.2) g/dL Albumin (3.5-5.0) g/dL 08/11/20 08/12/20 08/12/20 Range/Units 23:29 00:52 02:00 WBC (3.8-10.6) k/uL RBC (3.80-5.40) m/uL Hgb (11.4-16.0) gm/dL Hct (34.0-46.0) % Plt Count (150-450) k/uL Neutrophils # (1.3-7.7) k/uL Sodium (137-145) mmol/L Carbon Dioxide (22-30) mmol/L Glucose (74-99) mg/dL POC Glucose (mg/dL) 157 H 197 H 134 H (75-99) mg/dL Calcium (8.4-10.2) mg/dL AST (14-36) U/L Total Protein (6.3-8.2) g/dL Albumin (3.5-5.0) g/dL 08/12/20 08/12/20 08/12/20 Range/Units 02:53 04:19 04:30 WBC 11.7 H (3.8-10.6) k/uL RBC 2.33 L (3.80-5.40) m/uL Hgb 7.3 L (11.4-16.0) gm/dL Hct 20.8 L (34.0-46.0) % Plt Count 112 L (150-450) k/uL Neutrophils # 9.1 H (1.3-7.7) k/uL Sodium (137-145) mmol/L Carbon Dioxide (22-30) mmol/L Glucose (74-99) mg/dL POC Glucose (mg/dL) 107 H 124 H (75-99) mg/dL Calcium (8.4-10.2) mg/dL AST (14-36) U/L Total Protein (6.3-8.2) g/dL Albumin (3.5-5.0) g/dL 08/12/20 08/12/20 08/12/20 Range/Units 04:30 06:27 08:30 WBC (3.8-10.6) k/uL RBC (3.80-5.40) m/uL Hgb (11.4-16.0) gm/dL Hct (34.0-46.0) % Plt Count (150-450) k/uL Neutrophils # (1.3-7.7) k/uL Sodium 131 L (137-145) mmol/L Carbon Dioxide 20 L (22-30) mmol/L Glucose 123 H (74-99) mg/dL POC Glucose (mg/dL) 133 H 110 H (75-99) mg/dL Calcium 8.0 L (8.4-10.2) mg/dL AST 38 H (14-36) U/L Total Protein 4.7 L (6.3-8.2) g/dL Albumin 2.9 L (3.5-5.0) g/dL 08/12/20 Range/Units 12:01 WBC (3.8-10.6) k/uL RBC (3.80-5.40) m/uL Hgb (11.4-16.0) gm/dL Hct (34.0-46.0) % Plt Count (150-450) k/uL Neutrophils # (1.3-7.7) k/uL Sodium (137-145) mmol/L Carbon Dioxide (22-30) mmol/L Glucose (74-99) mg/dL POC Glucose (mg/dL) 184 H (75-99) mg/dL Calcium (8.4-10.2) mg/dL AST (14-36) U/L Total Protein (6.3-8.2) g/dL Albumin (3.5-5.0) g/dL
[2020-08-12 16:32] LABS: Glucose,Whole Blood 142 mg/dL (75-99)
[2020-08-12 20:33] LABS: Glucose,Whole Blood 154 mg/dL (75-99)
[2020-08-12] MEDS: SENNOSIDES-DOCUSATE SODIUM 1 EACH TAB PO SCH (20:41)
[2020-08-13 00:15] LABS: Glucose,Whole Blood 134 mg/dL (75-99)
[2020-08-13] MEDS: INSULIN ASPART (NovoLOG) 100 UNIT/ML VIAL SQ SCH ×6 (00:20→20:53)
[2020-08-13] MEDS: HEPARIN SODIUM,PORCINE 5,000 UNIT/ML 1 ML VIAL SQ SCH ×4 (00:21→22:35)
[2020-08-13] MEDS: KETOROLAC 15 MG/ML 1 ML VIAL IVP SCH ×3 (00:21→11:26)
[2020-08-13 04:22] LABS: Basophils % (A) 0 %; Eosinophils # (A) 0.5 k/uL (0-0.7); Eosinophils % (A) 6 %; HCT 20.3 % (34.0-46.0); Lymphocytes # (A) 0.9 k/uL (1.0-4.8); Lymphocytes % (A) 13 %; MCHC 34.4 g/dL (31.0-37.0); MCV 89.9 fL (80.0-100.0); Mean Platelet Volume 7.9; Monocytes # (A) 0.4 k/uL (0-1.0); Monocytes % (A) 5 %; Neutrophils # (A) 5.5 k/uL (1.3-7.7); Neutrophils % (A) 75 %; Platelet Count 107 k/uL (150-450); RBC 2.26 m/uL (3.80-5.40); RDW 14.3 % (11.5-15.5); WBC 7.4 k/uL (3.8-10.6)
[2020-08-13 04:49] LABS: Albumin 2.7 g/dL (3.5-5.0); Calcium 8.1 mg/dL (8.4-10.2); Magnesium 2.4 mg/dL (1.6-2.3); Potassium 4.3 mmol/L (3.5-5.1); Total Bilirubin 0.7 mg/dL (0.2-1.3); Total Protein 4.6 g/dL (6.3-8.2)
[2020-08-13 05:31] LABS: Glucose,Whole Blood 107 mg/dL (75-99)
[2020-08-13] MEDS: SODIUM CHLORIDE 0.9% 1,000 ML IV SCH (06:02)
[2020-08-13] MEDS: IPRATROPIUM-ALBUTEROL 3 ML NEB INHALATION SCH ×4 (08:34→19:09)
[2020-08-13 08:54] LABS: Glucose,Whole Blood 112 mg/dL (75-99)
[2020-08-13] MEDS: CLOPIDOGREL 75 MG TAB PO SCH (08:59)
[2020-08-13] MEDS: ATORVASTATIN 40 MG TAB PO SCH (08:59)
[2020-08-13] MEDS: MIDODRINE 5 MG TAB PO SCH ×3 (08:59→17:36)
[2020-08-13] MEDS: ASPIRIN 325 MG TAB PO SCH (08:59)
[2020-08-13] MEDS: METOPROLOL TARTRATE 12.5 MG TAB PO SCH (08:59)
[2020-08-13] MEDS: HYDROcodone/APAP 5-325MG 1 EACH TAB PO PRN (08:59)
[2020-08-13] MEDS: PANTOPRAZOLE 40 MG TABLET PO SCH (09:01)
--- NOTE | 2020-08-13 09:10 | P.PN ---
Subjective Progress Note Date: 08/13/20 75-year-old female who was admitted to the hospital on August 06. She came in because her sodium was low. I saw the patient in the office for preop clearance in anticipation of bypass grafting. She actually had the surgery today. Currently, she is on the volume assist control mode, rate of 12, tidal volume 350, FiO2 70%, and a PEEP of 5. Plendil same settings but 100%, the pO2 was 243, the pCO2 is 44, and a pH of 7.34. She is currently on saline at 50 mL an hour, nitroglycerin at 5 mcg/m, propofol has been turned off, and she is on norepinephrine at 5 mcg/m. She apparently had a two-vessel bypass grafting. She has a history of hyperlipidemia, hypertension, CAD, skin cancer, arthritis, and possible TIA. In addition, I saw her in the distant past for some interstitial lung disease/pulmonary fibrosis. The patient did have a complete pulmonary function test in my office. The patient's lung function including the FEV1, MVV, and RV/TLC ratio were all excellent. Based on her numbers, I thought she was at low increased operative risk. This was passed onto the cardiothoracic team. The patient surgery included a bypass graft using the left internal mammary artery to the left anterior descending coronary artery, and a reverse saphenous vein graft from aorta to the first obtuse marginal artery. She also had exclusion of the left atrial appendage using a 35 mm AtriClip, endoscopic harvesting of the left greater saphenous vein, intraoperative graft flow measurements using the [employer] system and intraoperative transesophageal echocardiogram. Progress note dated 08/11/2020. 75-year-old female postop day #2, status post two-vessel bypass grafting. Currently, the patient is doing relatively well. She is on 2 L nasal cannula. She is getting lactated Ringer's at 50 mL an hour, norepinephrine at 8.2 mcg/m, insulin at 0.5 units an hour. She was extubated about 4-1/2 hours after leaving the operating room. She had a pretty uneventful night according to her nurse. Her chest x-rays reviewed. This shows typical postoperative changes. I did a preop evaluation on her, and her lung function is mentioned in my consultation were excellent. She does have a history of underlying mild pulmonary fibrosis/interstitial lung disease. Currently, her white count is 7.9, hemog lobin 7.2, hematocrit 20.4, and platelet count 109,000. PT is 12.1, INR 1.2, PTT 41.1. Her last blood gases prior to extubation show a PaO2 of 114, PaCO2 of 43, and a pH of 7.37. Sodium is 133, potassium 4.3, chlorides 104, CO2 24, anion gap 5, BUN 13, and creatinine 0.63. Albumin is 2.9. Calcium is 7.7. Ionized calcium is normal. On 08/12/2020 patient seen in follow-up in the intensive care unit, she is awake and alert, she is in no acute distress, today is postoperative day 3 status post two-vessel bypass grafting. She is currently on 2 L of oxygen pulse ox of 90%, vital signs have been stable. Patient is working on incentive spirometer, today's chest x-ray has been reviewed showing a component of interstitial edema, basilar atelectasis versus edema, relatively stable exam. Patient remains on vasopressor support in the form of the fat currently running at 13 mics per minute, and she did require volume in the form of 5% albumin ordered by cardiothoracic surgery. She received a total of thousand mL of 5% albumin yesterday, with additional 250 of albumin this morning. Patient is significantly positive terms of her weight, +14 kg since admission. Patient still has mediastinal chest tube in place with a total of 370 of thin serosanguineous fluid in the last 24 hours, and left lateral chest tube put out 810 of fluid. Patient's 0.9 normal saline is running at 20 ML per hour. The patient is seen today 08/13/2020 in follow-up in the intensive care unit. Postoperative day #4. She is awake and alert in no acute distress. Currently sitting up in a chair at the bedside. She is maintaining O2 saturations in the 90s on 2 L/m per nasal cannula. Only pulling approximately 500 ML's on the incentive spirometer. Left pleural chest tube remains in place. Chest x-ray reveals evidence of basilar atelectasis and some fluid volume overload. Hemodynamically stable and currently off pressors. Status post 1 unit of packed red blood cells this admission. Current hemoglobin 7.0. Platelet count 107. 7.4. Sodium 130. Potassium 4.3. Creatinine 0.86. Magnesium 2.4. Albumin 2.7. Objective - Vital Signs Vital signs: Vital Signs Temp 98.2 F 08/13/20 04:00 Pulse 100 08/13/20 08:43 Resp 20 08/13/20 07:00 BP 102/56 08/13/20 07:00 Pulse Ox 94 L 08/13/20 07:00 Intake & Output 08/12/20 08/13/20 08/13/20 18:59 06:59 18:59 Intake Total 485.714 376 23 Output Total 1035 190 325 Balance -549.286 186 -302 Weight 94 kg Intake: IV 256 276 23 Pressure bag 36 36 3 Sodium Chloride 0.9% 1, 220 240 20 000 ml @ 20 mls/hr IV . Q24H [facility] Rx#:[id number] Intake, IV Titration 179.714 Amount Insulin Regular 100 unit 5.303 In Sodium Chloride 0.9% 100 ml @ Per Protocol IV .Q0M [facility] Rx#:[id number] Norepinephrine 4 mg In 174.411 Sodium Chloride 0.9% 250 ml @ 0.05 MCG/KG/MIN 15. 554 mls/hr IV .[id number] [facility] Rx#:[id number] Oral 50 100 Output: Chest Tube Drainage 90 150 Chest Tube Bilateral 20 Lower Mediastinal Left Lateral Chest 70 150 Urine 945 40 325 Other: Voiding Method Indwelling Catheter Bedside Commode # Voids 0 1 ABP, PAP, CO, CI - Last Documented Arterial Blood Pressure 95/50 Pulmonary Artery Pressure 37/16 Cardiac Output 6 Cardiac Index 3.4 - Exam GENERAL EXAM: Alert, 75-year-old female patient, up in a chair at the bedside, on 2 L nasal cannula, comfortable in no apparent distress. HEAD: Normocephalic. EYES: Normal reaction of pupils, equal size. NOSE: Clear with pink turbinates. THROAT: No erythema or exudates. NECK: No masses, no JVD. CHEST: Sternal dressing dry and intact. Heart hugger in place. Left chest tube in place.. LUNGS: Equal air entry with bibasilar crackles. CVS: S1 and S2 normal with no audible murmur, regular rhythm. ABDOMEN: No hepatosplenomegaly, normal bowel sounds, no guarding or rigidity. SPINE: No scoliosis or deformity SKIN: No rashes CENTRAL NERVOUS SYSTEM: No focal deficits, tone is normal in all 4 extremities. EXTREMITIES: There is trace peripheral edema. No clubbing, no cyanosis. Peripheral pulses are intact. - Labs CBC & Chem 7: 08/13/20 03:27 08/13/20 03:27 Labs: Abnormal Lab Results - Last 24 Hours (Table) 08/12/20 08/12/20 08/12/20 Range/Units 12:01 16:30 20:31 RBC (3.80-5.40) m/uL Hgb (11.4-16.0) gm/dL Hct (34.0-46.0) % Plt Count (150-450) k/uL Lymphocytes # (1.0-4.8) k/uL Sodium (137-145) mmol/L BUN (7-17) mg/dL Glucose (74-99) mg/dL POC Glucose (mg/dL) 184 H 142 H 154 H (75-99) mg/dL Calcium (8.4-10.2) mg/dL Magnesium (1.6-2.3) mg/dL Total Protein (6.3-8.2) g/dL Albumin (3.5-5.0) g/dL 08/13/20 08/13/20 08/13/20 Range/Units 00:14 03:27 03:27 RBC 2.26 L (3.80-5.40) m/uL Hgb 7.0 L (11.4-16.0) gm/dL Hct 20.3 L (34.0-46.0) % Plt Count 107 L (150-450) k/uL Lymphocytes # 0.9 L (1.0-4.8) k/uL Sodium 130 L (137-145) mmol/L BUN 21 H (7-17) mg/dL Glucose 104 H (74-99) mg/dL POC Glucose (mg/dL) 134 H (75-99) mg/dL Calcium 8.1 L (8.4-10.2) mg/dL Magnesium 2.4 H (1.6-2.3) mg/dL Total Protein 4.6 L (6.3-8.2) g/dL Albumin 2.7 L (3.5-5.0) g/dL 08/13/20 08/13/20 Range/Units 05:29 08:51 RBC (3.80-5.40) m/uL Hgb (11.4-16.0) gm/dL Hct (34.0-46.0) % Plt Count (150-450) k/uL Lymphocytes # (1.0-4.8) k/uL Sodium (137-145) mmol/L BUN (7-17) mg/dL Glucose (74-99) mg/dL POC Glucose (mg/dL) 107 H 112 H (75-99) mg/dL Calcium (8.4-10.2) mg/dL Magnesium (1.6-2.3) mg/dL Total Protein (6.3-8.2) g/dL Albumin (3.5-5.0) g/dL Assessment and Plan Assessment: 1 Coronary artery disease including left main disease, status post coronary artery revascularization on 08/10/2020. 2 Hyponatremia suspect secondary to hypovolemia and thiazide diuretics. Corrected, current sodium 130 3 History of mild pulmonary fibrosis dating back to 2017. FEV1 value 101% of predicted. 4 Obesity 5 Hypertension 6 Hyperlipidemia 7 Arthritis 8 Former smoker Plan: The patient was seen and evaluated by Dr. Guadalupe Chest x-ray and labs reviewed Additional diuretics today Again educated regarding the increase use of the incentive spirometer Increase her activity as tolerated We will continue to follow and make further recommendations based on her clinical status I, the cosigning physician, performed a history & physical examination of the patient. Lungs sounds with coarse crackles in the bilateral posterior bases. Maintaining good O2 saturations in the 90s on 2 L/m per nasal cannula. I discussed the assessment and plan of care with my nurse practitioner, Aparna Colunga . I attest to the above note as dictated by her.
[2020-08-13] MEDS ORDERED: FUROSEMIDE 10 MG/ML 2 ML VIAL IV ONE (09:13)
[2020-08-13] MEDS ORDERED: METOPROLOL TARTRATE 12.5 MG TAB PO ONE (09:30)
--- NOTE | 2020-08-13 10:10 | XR ---
EXAMINATION TYPE: XR chest 1V portable DATE OF EXAM: 08/13/2020 COMPARISON: Prior chest 08/12/2020 HISTORY: Status post cardiac surgery, chest tube TECHNIQUE: Single frontal view of the chest is obtained. FINDINGS: Chest tube remains in place, patient is post median sternotomy and left atrial appendage c lipping placement. Right jugular central venous sheath is stable, median sternal drains have been rem kwadwo. Cardiac mediastinal silhouette shows a stable appearance accounting for differences in techniqu e. Patchy bibasilar density persists. No evident pneumothorax. IMPRESSION: No evident complication status post chest tube removal. Persistent atelectatic changes. Cardiomegaly. Postop changes.
--- NOTE | 2020-08-13 11:24 | P.PN ---
Subjective Progress Note Date: 08/13/20 Principal diagnosis: Coronary artery disease with left main disease, preserved systolic function, preoperative hyponatremia warranting admission for correction. Past medical history significant for pulmonary fibrosis, asthma, hypertension, hyperlipidemia, previous tobacco dependence with preoperative FEV1 107% of predicted, obesity, osteoarthritis, cervical stenosis post anterior cervical decompression with discectomy and fusion, TIA in childhood, and family history of premature coronary artery disease. POD #3 double vessel coronary artery bypass grafting using the left internal mammary artery to the left anterior descending artery, reverse saphenous vein graft from the aorta to the first obtuse marginal artery, exclusion of the left atrial appendage using a 35 mm AtriClip, endoscopic harvesting of the left greater saphenous vein from the groin to just below the knee level, intraoperative graft flow measurements using the [employer] system, intraoperative transesophageal echocardiogram and epi-aortic scanning. Postoperative acute blood loss anemia, expected given hemodilution and cardiopulmonary bypass pump. Postoperative hypotension requiring vasopressor support, expected vasoplegia due to preoperative ARB use. The patient was seen in follow-up today 08/13/2020 at her bedside in the intensive care unit. Currently she is sitting up to the bedside chair, is awake, alert and oriented 3. Denies any complaints of pain or shortness of breath at this time. She does report that she does feel somewhat tired today. Complaining of an occasional nonproductive cough. Oxygen saturations are 95% on 2 L nasal cannula and she is achieving 500-750 mL on her incentive spirometry. Bedside telemetry showing normal sinus rhythm heart rate 96 BPM. She remained hemodynamically stable and has been off the norepinephrine drip since yesterday 08/12/2020. Right IJ Cordis in place with continuous CVP monitoring, current CVP pressure 22 mmHg. Her Yu catheter was removed yesterday and she required a straight cath this morning for a residual urine of 310 mL. Left pleural chest tube remains in place to low continuous wall suction -20 cm H2O. No air leak is present. Draining thin serous drainage with 100 mL output in the last 8 hours and 340 milliliters output in the last 24 hours. Laboratory results this morning show a WBC count 7.4, hemoglobin 7.0, hematocrit 20.3, platelets 107, sodium 130, potassium 4.3, BUN 21 and creatinine 0.86. She did receive 1 unit of PRBCs on 08/10/2020. Objective - Vital Signs Vital signs: Vital Signs Temp 98.3 F 08/13/20 08:00 Pulse 108 H 08/13/20 09:00 Resp 32 H 08/13/20 09:00 BP 101/53 08/13/20 09:00 Pulse Ox 97 08/13/20 09:00 Intake & Output 08/12/20 08/13/20 08/13/20 18:59 06:59 18:59 Intake Total 485.714 376 69 Output Total 1035 190 335 Balance -549.286 186 -266 Weight 94 kg Intake: IV 256 276 69 Pressure bag 36 36 9 Sodium Chloride 0.9% 1, 220 240 60 000 ml @ 20 mls/hr IV . Q24H [facility] Rx#:[id number] Intake, IV Titration 179.714 Amount Insulin Regular 100 unit 5.303 In Sodium Chloride 0.9% 100 ml @ Per Protocol IV .Q0M [facility] Rx#:[id number] Norepinephrine 4 mg In 174.411 Sodium Chloride 0.9% 250 ml @ 0.05 MCG/KG/MIN 15. 554 mls/hr IV .[id number] [facility] Rx#:[id number] Oral 50 100 Output: Chest Tube Drainage 90 150 10 Chest Tube Bilateral 20 Lower Mediastinal Left Lateral Chest 70 150 10 Urine 945 40 325 Other: Voiding Method Indwelling Catheter Bedside Commode # Voids 0 1 ABP, PAP, CO, CI - Last Documented Arterial Blood Pressure 95/50 Pulmonary Artery Pressure 37/16 Cardiac Output 6 Cardiac Index 3.4 - Constitutional General appearance: Present: cooperative, morbidly obese, no acute distress - EENT Eyes: Present: normal appearance. Absent: scleral icterus ENT: Present: hearing grossly normal - Neck Details: Neck is supple, no JVD. Right IJ Cordis in place with continuous CVP monitoring. - Respiratory Details: Lung sounds with few expiratory wheezes throughout, diminished bilateral bases with few scattered crackles. No rhonchi. Respirations are symmetrical and nonlabored. Oxygen saturation is 95% on 2 L nasal cannula. Achieving 500-750 mL on her incentive spirometry. Left pleural chest tube remains in place with continuous low wall suction -20 cm H2O. No air leak is present. Draining thin serosanguineous drainage with 100 mL output in the last 8 hours and 340 mL output in the last 24 hours. - Cardiovascular Details: Regular rhythm and rate. S1 and S2 present, negative for S3, gallop or murmur. Sternum is stable. Bedside telemetry showing normal sinus rhythm with a heart rate 96 BPM. Heart hugger is in place and she is demonstrating appropriate use. Right IJ cordis in place with continuous CVP monitoring, current CVP pressure 2 2 mmHg. Knee-high ANGEL hose and sequential compression devices in place to bilateral lower extremities. +1 edema to her bilateral lower extremities. Atrial epicardial pacemaker wires in place and grounded. - Gastrointestinal Gastrointestinal Comment(s): Abdomen is soft, nontender and nondistended. Active bowel sounds present in all 4 abdominal quadrants. No guarding or rigidity. No organomegaly appreciated. Tolerating oral intake. Passing flatus. - Genitourinary Genitourinary Comment(s): Straight cath for 310 mL of clear yellow urine this a.m. - Integumentary Integumentary Comment(s): Skin is warm and dry. No clubbing or cyanosis is present. Midline sternal in cision is clean, dry and approximated. No drainage or redness is present. Left lower extremity EVH site is clean, dry and approximated. No drainage or redness is present. - Neurologic Neurologic: Present: CNII-XII intact. Absent: focal deficits - Musculoskeletal Musculoskeletal: Present: gait normal, generalized weakness, strength equal bilaterally - Psychiatric Psychiatric: Present: A&O x's 3, appropriate affect, intact judgment & insight - Allied health notes Allied health notes reviewed: nursing - Labs CBC & Chem 7: 08/13/20 03:27 08/13/20 03:27 Labs: Abnormal Lab Results - Last 24 Hours (Table) 08/12/20 08/12/20 08/12/20 Range/Units 12:01 16:30 20:31 RBC (3.80-5.40) m/uL Hgb (11.4-16.0) gm/dL Hct (34.0-46.0) % Plt Count (150-450) k/uL Lymphocytes # (1.0-4.8) k/uL Sodium (137-145) mmol/L BUN (7-17) mg/dL Glucose (74-99) mg/dL POC Glucose (mg/dL) 184 H 142 H 154 H (75-99) mg/dL Calcium (8.4-10.2) mg/dL Magnesium (1.6-2.3) mg/dL Total Protein (6.3-8.2) g/dL Albumin (3.5-5.0) g/dL 08/13/20 08/13/20 08/13/20 Range/Units 00:14 03:27 03:27 RBC 2.26 L (3.80-5.40) m/uL Hgb 7.0 L (11.4-16.0) gm/dL Hct 20.3 L (34.0-46.0) % Plt Count 107 L (150-450) k/uL Lymphocytes # 0.9 L (1.0-4.8) k/uL Sodium 130 L (137-145) mmol/L BUN 21 H (7-17) mg/dL Glucose 104 H (74-99) mg/dL POC Glucose (mg/dL) 134 H (75-99) mg/dL Calcium 8.1 L (8.4-10.2) mg/dL Magnesium 2.4 H (1.6-2.3) mg/dL Total Protein 4.6 L (6.3-8.2) g/dL Albumin 2.7 L (3.5-5.0) g/dL 08/13/20 08/13/20 Range/Units 05:29 08:51 RBC (3.80-5.40) m/uL Hgb (11.4-16.0) gm/dL Hct (34.0-46.0) % Plt Count (150-450) k/uL Lymphocytes # (1.0-4.8) k/uL Sodium (137-145) mmol/L BUN (7-17) mg/dL Glucose (74-99) mg/dL POC Glucose (mg/dL) 107 H 112 H (75-99) mg/dL Calcium (8.4-10.2) mg/dL Magnesium (1.6-2.3) mg/dL Total Protein (6.3-8.2) g/dL Albumin (3.5-5.0) g/dL - Imaging and Cardiology Chest x-ray: report reviewed, image reviewed Assessment and Plan Assessment: 1. 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 Preoperative hyponatremia, sodium level 120 just prior to admission, r esolved 3. History of pulmonary fibrosis, asthma 4. Hypertension 5. Hyperlipidemia, treated, cholesterol 186, LDL 98 6. Previous tobacco dependence, preoperative FEV1 107% 7. Obesity 8. Osteoarthritis 9. Cervical stenosis post anterior cervical decompression, discectomy and fusion 10. TIA as a child around age 11 11. Family history of premature coronary artery disease with father diagnosed in his early 50s 12. Postoperative acute blood loss anemia, expected, status post transfusion 13. Postoperative hypotension, expected Plan: 1. Continue aspirin, statin, Plavix, and beta sisi. Will increase metoprolol tartrate 25 mg by mouth twice a day. 2. Continue Midodrine blood pressure support. 3. Wean O2 as tolerated. Encourage incentive spirometry is 10 times every hour while awake. Bronchodilators per pulmonology/critical care management. 4. Increase activity, ambulate as tolerated. PT/OT/cardiac rehab following. 5. Will monitor daily labs and chest x-rays. Electrolyte replacement per protocol. No further transfusion at this point. Will give 20 mg IV push Lasix 1 today. 6. GI/DVT prophylaxis 7. Insulin management per primary care service. Patient is not diabetic, hemoglobin A1c 5.5%. 8. Will discontinue left pleural chest tube. 9. May bladder scan and straight cath for greater than 300 mL residual. Bladder scan every 6 hours and when necessary. 10. Strict accurate intake and output. Daily weights 11. Remove right IJ Cordis. 12. More recommendations to follow based on patient's clinical course. Time with Patient: Greater than 30
[2020-08-13 11:38] LABS: Glucose,Whole Blood 118 mg/dL (75-99)
--- NOTE | 2020-08-13 11:48 | P.PN ---
Subjective Progress Note Date: 08/13/20 HISTORY OF PRESENT ILLNESS This is a 75-year-old female patient of Dr. Avila and Dr. Garcia with a past medical history of pulmonary fibrosis, asthma, hypertension, hyperlipidemia, obesity, osteoarthritis, cervical stenosis status post anterior cervical decompression, discectomy and fusion. Patient recently underwent stress testing which demonstrated anterior wall ischemia with small reversible defect. It was recommended to undergo heart catheterization which was completed and showed calcified coronary artery, significant distal left main by IVUS, mild to moderate disease of the left anterior descending artery. Transthoracic echo was completed showed EF of 55%, mild mitral regurgitation, mild tricuspid regurgitation. Patient was then referred for coronary artery bypass grafting. During her outpatient preoperative workup patient was noted to have hyponatremia with sodium level of 120. She was advised to go to the emergency department to be admitted to correct her sodium level. Patient reports she's asymptomatic, she denies any chest pain, palpitations, shortness of breath, fever, chills, no nausea, vomiting, diarrhea, or diarrhea. Consult placed for nephrology, she was started on 0.9 normal saline at 75 mL per hour. 08/07: Patient has been afebrile, heart rate 62, blood pressure 132/70, pulse ox 90% on room air. Sodium today is at 125. Potassium 4.0, chloride 90, CO2 20, BUN 20 creatinine 0.7. Patient is followed by nephrology and received sodium chloride tablet 2 g once this morning. Repeat sodium level at 2 PM, cortisol level ordered and TSH. Patient states that she is feeling well today. She denies any lightheadedness or dizziness. No chest pain or shortness of breath. She is scheduled for open heart surgery on Monday and anticipates that she will be here through the weekend. 08/08 sodium is much better, instructions were for discontinuation of IV fluids, currently running at 75 mL an hour, sodium 135, seen by nephrology, patient is scheduled to have open heart surgery on Monday, and the would consult Dr. Sethi, and Dr. Harrison, who would assist with preop CABG management, patient denies any nausea vomiting, blood pressure is significantly much better today, no chest pain no difficulty breathing, but pressure fluctuates between 99 systolic to 161 systolic, heart rate stable at 60-69, creatinine at 0.08 urinalysis negative, patient continues to be off hydrochlorothiazide 08/09 patient feels well today, no new concerns of chest pain shortness of breath no lightheadedness no dizziness, no GI losses no pleurisy, no dysuria. Patient's serum sodium is 138, electrolytes are normal creatinine is 0.8, expected to proceed with CABG as scheduled for August 10Monday morning. board, comes felt with cardiology to assist with postcardiac management in the morning. She will be made nothing by mouth post midnight tonight 08/10: Patient is gone this morning for CABG. Patient was not seen and evaluated at this time. 08/11: Patient is status post CABG, left internal mammary artery to the left anterior descending artery, reverse saphenous vein graft from the aorta to the first obtuse marginal artery, postop day #1. Patient was successfully extubated. Patient is seen today in the intensive care unit. Patient complains of generalized fatigue and weakness. Temperature max 100.6, heart rate in the 70s and 80s, respiratory rate 25, blood pressure 91/39, pulse ox 93% on 2 L nasal cannula. WBC 7.9, hemoglobin 7.2, platelet count 109. INR is 1.2. Sodium 133 otherwise elect lites are normal, creatinine 0.63. Total bilirubin 0.6. AST 37, lymphocytes 26. Repeat chest x-ray reveals difficult to exclude component of volume overload, interstitial edema, there may be basilar atelectasis versus edema, associated effusion. Patient is reaching 500 on incentive spirometry. 08/12: Patient remains in the intensive care unit and looks more comfortable today. Patient is resting in a chair. Her pulse ox is running 88-90% on 2 L but respiratory status appears stable. She's been afebrile, heart rate in the 80s, blood pressure 111/47. Blood sugars have been running 107-133. Insulin drip will be discontinued and patient placed on NovoLog scale every 4 hours until nighttime and transition to before meals at bedtime. Norepinephrine to be weaned. IV lasix was ordered this morning. WBC 11.7, hemoglobin 7.3, platelet count 112. Sodium 131, creatinine 0.82. Mediastinal chest tube to be removed today and Yu to be removed today. 08/13: Patient remains in the intensive care unit. She appears to be comfortable. She is found sitting up in chair. No shortness of breath. She has occasional cough. She is working on incentive spirometry. Patient has been afebrile, heart rate 100, blood pressure 101/53, pulse ox 97% on 2 L nasal cannula. rn birthing sinus rhythm. WBC 7.4, hemoglobin 7, platelet count 107. Sodium 130, potassium 4.3, chloride 103, CO2 25, BUN 21 and creatinine 0.86. Blood sugar 104. Capillary blood glucose running between 104 and 134. Repeat chest x-ray reveals no evident complications status post chest tube removal. Persistent atelectatic changes. Cardiac megaly. Postop changes. Patient received 1 dose of IV Lasix this morning. Yu catheter was removed yesterday and patient has been straight cathed this morning. Right Cordis to be removed. REVIEW OF SYSTEMS Constitutional: Reports fatigue, Denies chills, Denies fever, reports mild fat igue. Ears, nose, mouth and throat: Denies headache, Denies nasal congestion, Denies nasal discharge, Denies sinus pain, Denies sinus pressure, Denies sore throat Cardiovascular: Reports chest discomfort, Denies edema, Denies irregular heart beat, Denies leg edema, Denies orthopnea, Denies palpitations, Denies shortness of breath, Denies syncope Respiratory: Denies congestion, Denies cough, Denies pain, Denies respiratory infections, Denies wheezing Gastrointestinal: Denies abdominal pain, Denies constipation, Denies diarrhea, Denies dyspepsia, Denies heartburn, Denies hematemesis, Denies loss of appetite, Denies nausea, Denies vomiting Genitourinary: Denies dysuria, Denies hematuria, Denies urgency Musculoskeletal: Denies arm numbness/tingling, Denies atrophy, Denies fractures, Denies frequent falls, Denies gait dysfunction, Denies myalgias, Denies neck pain, Denies neck stiffness Integumentary: Denies dryness, Denies lesions, Denies pruritus, Denies sores, Denies wounds Neurological: Denies confusion, Denies gait dysfunction, Denies headaches, Denies paralysis, Denies seizures, Denies spasticity, Denies syncope, Denies vertigo Psychiatric: Denies anxiety, Denies confusion, Denies irritability, Denies mood swings, Denies paranoia, Denies suicidal ideation Endocrine: Denies excessive sweating, Denies fatigue, Denies high blood sugars, Denies palpitations, Denies polyphagia, Denies polyuria, Denies thyroid mass PHYSICAL EXAMINATION Gen: This is a 75-year-old female. She is sitting in recliner and appears to be comfortable and in no acute distress. HEENT: Head is atraumatic, normocephalic. Pupils equal, round. Sclerae is anicteric. Right-sided Cordis in place. NECK: Supple. No JVD. No lymphadenopathy. No thyromegaly. LUNGS: Diminished bilaterally. No intercostal retractions. HEART: Regular rate and rhythm. No murmur. left pleural chest tube. ABDOMEN: Soft. Bowel sounds are present. No masses. No tenderness. EXTREMITIES: No pedal edema. No calf tenderness. Dorsalis pedis palpable bilaterally. NEUROLOGICAL: Patient is awake, alert and oriented x3. Cranial nerves 2 through 12 are grossly intact. ASSESSMENT AND PLAN 1. Hyponatremia, resolved. Hydrochlorothiazide is on hold. Nephrology is francine dhillon. 2. Coronary artery disease with left main disease status post CABG. Continue current management per cardiothoracic team. 3. History of pulmonary fibrosis. Continue duo nebs and albuterol 4. Asthma, mild intermittent. Continue ipratropium albuterol nebulizers 5. Hyperlipidemia. Continue simvastatin 20 mg daily 6. Hypertension. Continue Lopressor increased to 25 mg twice daily. 7. GI prophylaxis. Pantoprazole 8. DVT prophylaxis: SCDs 9. Blood sugar management in a nondiabetic. insulin scale ACHS. DISCHARGE PLAN Home with homecare. Impression and plan of care have been directed as dictated by the signing physician. Monica Fragoso nurse practitioner acting as scribe for signing physician. Objective - Vital Signs Vital signs: Vital Signs Temp 98.3 F 08/13/20 08:00 Pulse 108 H 08/13/20 09:00 Resp 32 H 08/13/20 09:00 BP 101/53 08/13/20 09:00 Pulse Ox 97 08/13/20 09:00 Intake & Output 08/12/20 08/13/20 08/13/20 18:59 06:59 18:59 Intake Total 485.714 376 69 Output Total 1035 190 335 Balance -549.286 186 -266 Weight 94 kg Intake: IV 256 276 69 Pressure bag 36 36 9 Sodium Chloride 0.9% 1, 220 240 60 000 ml @ 20 mls/hr IV . Q24H [facility] Rx#:[id number] Intake, IV Titration 179.714 Amount Insulin Regular 100 unit 5.303 In Sodium Chloride 0.9% 100 ml @ Per Protocol IV .Q0M [facility] Rx#:[id number] Norepinephrine 4 mg In 174.411 Sodium Chloride 0.9% 250 ml @ 0.05 MCG/KG/MIN 15. 554 mls/hr IV .[id number] [facility] Rx#:[id number] Oral 50 100 Output: Chest Tube Drainage 90 150 10 Chest Tube Bilateral 20 Lower Mediastinal Left Lateral Chest 70 150 10 Urine 945 40 325 Other: Voiding Method Indwelling Catheter Bedside Commode # Voids 0 1 ABP, PAP, CO, CI - Last Documented Arterial Blood Pressure 95/50 Pulmonary Artery Pressure 37/16 Cardiac Output 6 Cardiac Index 3.4 - Labs CBC & Chem 7: 08/13/20 03:27 08/13/20 03:27 Labs: Abnormal Lab Results - Last 24 Hours (Table) 08/12/20 08/12/20 08/12/20 Range/Units 12:01 16:30 20:31 RBC (3.80-5.40) m/uL Hgb (11.4-16.0) gm/dL Hct (34.0-46.0) % Plt Count (150-450) k/uL Lymphocytes # (1.0-4.8) k/uL Sodium (137-145) mmol/L BUN (7-17) mg/dL Glucose (74-99) mg/dL POC Glucose (mg/dL) 184 H 142 H 154 H (75-99) mg/dL Calcium (8.4-10.2) mg/dL Magnesium (1.6-2.3) mg/dL Total Protein (6.3-8.2) g/dL Albumin (3.5-5.0) g/dL 08/13/20 08/13/20 08/13/20 Range/Units 00:14 03:27 03:27 RBC 2.26 L (3.80-5.40) m/uL Hgb 7.0 L (11.4-16.0) gm/dL Hct 20.3 L (34.0-46.0) % Plt Count 107 L (150-450) k/uL Lymphocytes # 0.9 L (1.0-4.8) k/uL Sodium 130 L (137-145) mmol/L BUN 21 H (7-17) mg/dL Glucose 104 H (74-99) mg/dL POC Glucose (mg/dL) 134 H (75-99) mg/dL Calcium 8.1 L (8.4-10.2) mg/dL Magnesium 2.4 H (1.6-2.3) mg/dL Total Protein 4.6 L (6.3-8.2) g/dL Albumin 2.7 L (3.5-5.0) g/dL 08/13/20 08/13/20 Range/Units 05:29 08:51 RBC (3.80-5.40) m/uL Hgb (11.4-16.0) gm/dL Hct (34.0-46.0) % Plt Count (150-450) k/uL Lymphocytes # (1.0-4.8) k/uL Sodium (137-145) mmol/L BUN (7-17) mg/dL Glucose (74-99) mg/dL POC Glucose (mg/dL) 107 H 112 H (75-99) mg/dL Calcium (8.4-10.2) mg/dL Magnesium (1.6-2.3) mg/dL Total Protein (6.3-8.2) g/dL Albumin (3.5-5.0) g/dL
--- NOTE | 2020-08-13 12:22 | P.PN ---
Subjective Patient is doing well. She is sitting up in a chair. It sounds are reduced bilaterally but there are no rhonchi no crackles Heart sounds S1 and S2 are soft No lower extremity edema Impression Predominantly left main disease status post bypass grafting with HOLLAND graft to the LAD and SVG to the circumflex CAD Plan Continue aspirin continue statins Increase metoprolol today Patient is stable Objective - Vital Signs Vital signs: Vital Signs Temp 98.3 F 08/13/20 08:00 Pulse 79 08/13/20 12:15 Resp 12 08/13/20 12:00 BP 101/56 08/13/20 12:00 Pulse Ox 98 08/13/20 12:00 Intake & Output 08/12/20 08/13/20 08/13/20 18:59 06:59 18:59 Intake Total 485.714 376 215 Output Total 1035 190 585 Balance -549.286 186 -370 Weight 94 kg Intake: IV 256 276 115 Pressure bag 36 36 15 Sodium Chloride 0.9% 1, 220 240 100 000 ml @ 20 mls/hr IV . Q24H [facility] Rx#:[id number] Intake, IV Titration 179.714 Amount Insulin Regular 100 unit 5.303 In Sodium Chloride 0.9% 100 ml @ Per Protocol IV .Q0M [facility] Rx#:[id number] Norepinephrine 4 mg In 174.411 Sodium Chloride 0.9% 250 ml @ 0.05 MCG/KG/MIN 15. 554 mls/hr IV .[id number] [facility] Rx#:[id number] Oral 50 100 100 Output: Chest Tube Drainage 90 150 10 Chest Tube Bilateral 20 Lower Mediastinal Left Lateral Chest 70 150 10 Urine 945 40 575 Other: Voiding Method Indwelling Catheter Bedside Commode # Voids 0 1 ABP, PAP, CO, CI - Last Documented Arterial Blood Pressure 95/50 Pulmonary Artery Pressure 37/16 Cardiac Output 6 Cardiac Index 3.4 - Labs CBC & Chem 7: 08/13/20 03:27 08/13/20 03:27 Labs: Abnormal Lab Results - Last 24 Hours (Table) 08/12/20 08/12/20 08/13/20 Range/Units 16:30 20:31 00:14 RBC (3.80-5.40) m/uL Hgb (11.4-16.0) gm/dL Hct (34.0-46.0) % Plt Count (150-450) k/uL Lymphocytes # (1.0-4.8) k/uL Sodium (137-145) mmol/L BUN (7-17) mg/dL Glucose (74-99) mg/dL POC Glucose (mg/dL) 142 H 154 H 134 H (75-99) mg/dL Calcium (8.4-10.2) mg/dL Magnesium (1.6-2.3) mg/dL Total Protein (6.3-8.2) g/dL Albumin (3.5-5.0) g/dL 08/13/20 08/13/20 08/13/20 Range/Units 03:27 03:27 05:29 RBC 2.26 L (3.80-5.40) m/uL Hgb 7.0 L (11.4-16.0) gm/dL Hct 20.3 L (34.0-46.0) % Plt Count 107 L (150-450) k/uL Lymphocytes # 0.9 L (1.0-4.8) k/uL Sodium 130 L (137-145) mmol/L BUN 21 H (7-17) mg/dL Glucose 104 H (74-99) mg/dL POC Glucose (mg/dL) 107 H (75-99) mg/dL Calcium 8.1 L (8.4-10.2) mg/dL Magnesium 2.4 H (1.6-2.3) mg/dL Total Protein 4.6 L (6.3-8.2) g/dL Albumin 2.7 L (3.5-5.0) g/dL 08/13/20 08/13/20 Range/Units 08:51 11:37 RBC (3.80-5.40) m/uL Hgb (11.4-16.0) gm/dL Hct (34.0-46.0) % Plt Count (150-450) k/uL Lymphocytes # (1.0-4.8) k/uL Sodium (137-145) mmol/L BUN (7-17) mg/dL Glucose (74-99) mg/dL POC Glucose (mg/dL) 112 H 118 H (75-99) mg/dL Calcium (8.4-10.2) mg/dL Magnesium (1.6-2.3) mg/dL Total Protein (6.3-8.2) g/dL Albumin (3.5-5.0) g/dL
[2020-08-13] MEDS: ACETAMINOPHEN TAB 325 MG TAB PO PRN (14:39)
[2020-08-13] MEDS: BENZOCAINE/MENTHOL LOZENG 1 EACH LOZENGE MUCOUS MEM PRN ×2 (16:57→22:34)
[2020-08-13 17:31] LABS: Glucose,Whole Blood 150 mg/dL (75-99)
[2020-08-13 19:56] LABS: Glucose,Whole Blood 136 mg/dL (75-99)
[2020-08-13 20:54] LABS: Glucose,Whole Blood 130 mg/dL (75-99)
[2020-08-13] MEDS: SENNOSIDES-DOCUSATE SODIUM 1 EACH TAB PO SCH (20:57)
[2020-08-13] MEDS ORDERED: METOPROLOL TARTRATE 25 MG TAB PO SCH (21:00)
[2020-08-14] MEDS: INSULIN ASPART (NovoLOG) 100 UNIT/ML VIAL SQ SCH ×6 (01:05→20:42)
[2020-08-14 01:06] LABS: Glucose,Whole Blood 118 mg/dL (75-99)
[2020-08-14] MEDS: ACETAMINOPHEN TAB 325 MG TAB PO PRN ×2 (01:12→15:10)
[2020-08-14 04:26] LABS: ALT 19 U/L (4-34); AST 28 U/L (14-36); African American GFR (CKD) >90 (>60 ml/min/1.73 sqM); Albumin 2.9 g/dL (3.5-5.0); Alkaline Phosphatase 63 U/L (38-126); Anion Gap 4 mmol/L; Blood Urea Nitrogen 18 mg/dL (7-17); Calcium 8.3 mg/dL (8.4-10.2); Carbon Dioxide 26 mmol/L (22-30); Chloride 102 mmol/L (98-107); Glucose 108 mg/dL (74-99); Non-African American GFR(CKD) 84 (>60 ml/min/1.73 sqM); Sodium 132 mmol/L (137-145); Total Bilirubin 0.9 mg/dL (0.2-1.3); Total Protein 4.9 g/dL (6.3-8.2)
[2020-08-14 04:27] LABS: Basophils % (A) 0 %; Eosinophils # (A) 0.4 k/uL (0-0.7); Eosinophils % (A) 5 %; Lymphocytes # (A) 1.2 k/uL (1.0-4.8); Lymphocytes % (A) 15 %; MCH 30.5 pg (25.0-35.0); MCHC 33.4 g/dL (31.0-37.0); MCV 91.3 fL (80.0-100.0); Mean Platelet Volume 7.9; Monocytes # (A) 0.6 k/uL (0-1.0); Monocytes % (A) 7 %; Neutrophils # (A) 5.6 k/uL (1.3-7.7); Neutrophils % (A) 70 %; Platelet Count 159 k/uL (150-450); RDW 14.4 % (11.5-15.5)
[2020-08-14 04:37] LABS: Potassium 4.2 mmol/L (3.5-5.1)
[2020-08-14] MEDS: IPRATROPIUM-ALBUTEROL 3 ML NEB INHALATION SCH ×4 (08:12→19:48)
--- NOTE | 2020-08-14 08:14 | XR ---
EXAMINATION TYPE: XR chest 2V DATE OF EXAM: 08/14/2020 COMPARISON: Chest x-ray 08/13/2020 HISTORY: Postop cardiac surgery, chest tube removal TECHNIQUE: Frontal and lateral views of the chest are obtained. FINDINGS: There are overlying artifacts, postop changes are again noted. There are overlying leads. Left-sided chest tube has been removed. No sizable pneumothorax. Pleural parenchymal changes are amado lar. Cardiac mediastinal silhouette is unchanged. Epicardial leads are noted on lateral exam. IMPRESSION: No evident complication status post chest tube removal. There is likely residual atelect asis, possible small effusion
[2020-08-14] MEDS ORDERED: FUROSEMIDE 10 MG/ML 2 ML VIAL IV ONE (08:24)
[2020-08-14] MEDS: HEPARIN SODIUM,PORCINE 5,000 UNIT/ML 1 ML VIAL SQ SCH ×3 (08:33→23:44)
[2020-08-14] MEDS: ATORVASTATIN 40 MG TAB PO SCH (08:33)
[2020-08-14] MEDS: MIDODRINE 5 MG TAB PO SCH (08:33)
[2020-08-14] MEDS: ASPIRIN 325 MG TAB PO SCH (08:33)
[2020-08-14] MEDS: CLOPIDOGREL 75 MG TAB PO SCH (08:33)
[2020-08-14] MEDS: PANTOPRAZOLE 40 MG TABLET PO SCH (08:33)
[2020-08-14] MEDS: METOPROLOL TARTRATE 50 MG TAB PO SCH ×2 (08:44→20:13)
--- NOTE | 2020-08-14 09:05 | P.PN ---
Subjective Progress Note Date: 08/14/20 Principal diagnosis: Coronary artery disease with left main disease, preserved systolic function, preoperative hyponatremia warranting admission for correction. Past medical history significant for pulmonary fibrosis, asthma, hypertension, hyperlipidemia, previous tobacco dependence with preoperative FEV1 107% of predicted, obesity, osteoarthritis, cervical stenosis post anterior cervical decompression with discectomy and fusion, TIA in childhood, and family history of premature coronary artery disease. POD #4 double vessel coronary artery bypass grafting using the left internal mammary artery to the left anterior descending artery, reverse saphenous vein graft from the aorta to the first obtuse marginal artery, exclusion of the left atrial appendage using a 35 mm AtriClip, endoscopic harvesting of the left greater saphenous vein from the groin to just below the knee level, intraoperative graft flow measurements using the [employer] system, intraoperative transesophageal echocardiogram and epi-aortic scanning. Postoperative acute blood loss anemia, expected given hemodilution and cardiopulmonary bypass pump. Postoperative hypotension requiring vasopressor support, expected vasoplegia due to preoperative ARB use. The patient was seen in follow-up today 08/14/2020 at her bedside in the intensive care unit. Currently she is sitting up to the bedside chair, is awake, alert and oriented 3. Denies any complaints of shortness of breath although she complaining of having a sore mouth. Oxygen saturation are 93-94% on room air and she is achieving 750 mL on her incentive spirometry. Bedside telemetry showing normal sinus rhythm heart rate 99 BPM. She remains hemodynamically stable and is currently on no inotropic or pressor support. Transfer orders were placed yesterday for transfer to the cardiac stepdown unit and she is awaiting a bed. Left pleural chest tube was removed yesterday without incident. The patient has been a bleeding up to the bedside commode throughout the night and has had a couple of episodes of incontinence with coughing. She remains afebrile the last 24 hours. Laboratory results today show a WBC count 8.0, hemoglobin 7.0, platelets 159, sodium 132, BUN 18, and creatinine 0.72. Objective - Vital Signs Vital signs: Vital Signs Temp 98.5 F 08/14/20 04:00 Pulse 96 08/14/20 08:22 Resp 18 08/14/20 04:00 BP 120/62 08/14/20 04:00 Pulse Ox 99 08/14/20 04:00 Intake & Output 08/13/20 08/14/20 08/14/20 18:59 06:59 18:59 Intake Total 318 78 0 Output Total 1185 200 Balance -867 -122 0 Weight 92.2 kg Intake: IV 138 78 0 Pressure bag 18 18 Sodium Chloride 0.9% 1, 120 60 0 000 ml @ 20 mls/hr IV . Q24H [facility] Rx#:[id number] Oral 180 Output: Chest Tube Drainage 10 Left Lateral Chest 10 Urine 1175 200 Other: Voiding Method Bedside Commode Bedside Commode # Voids 1 1 ABP, PAP, CO, CI - Last Documented Arterial Blood Pressure 95/50 Pulmonary Artery Pressure 37/16 Cardiac Output 6 Cardiac Index 3.4 - Constitutional General appearance: Present: cooperative, morbidly obese, no acute distress - EENT Eyes: Present: normal appearance. Absent: scleral icterus ENT: Present: hearing grossly normal - Neck Details: Neck is supple, no JVD. - Respiratory Details: Lung sounds with expiratory throughout, few scattered crackles to her bilateral bases. Respirations are symmetrical and nonlabored. Oxygen saturation are 93- 94% on room air. Achieving 750 mL on her incentive spirometry. - Cardiovascular Details: Regular rhythm and rate. S1 and S2 present, negative for S3, gallop or murmur. Sternum is stable. Bedside telemetry showing normal sinus rhythm heart rate 99 BPM. Knee-high ANGEL hose and sponge compression devices in place from her bilateral lower extremities. Atrial epicardial pacemaker wires are in place and grounded. Heart hugger is in place and she is demonstrating appropriate use. - Gastrointestinal Gastrointestinal Comment(s): Abdomen is soft, nontender and nondistended. Active bowel sounds present in all 4 abdominal quadrants. No guarding or rigidity. Tolerating oral intake. Passing flatus. - Genitourinary Genitourinary Comment(s): Continues to void, occasional episode of incontinence. - Integumentary Integumentary Comment(s): Skin is warm and dry. No clubbing or cyanosis is present. Midline sternal incision is clean, dry and approximated. No drainage or redness is present. Left lower extremity EVH site clean, dry and approximated. No drainage or redness is present. - Neurologic Neurologic: Present: CNII-XII intact. Absent: focal deficits - Musculoskeletal Musculoskeletal: Present: gait normal, generalized weakness, strength equal bilaterally - Psychiatric Psychiatric: Present: A&O x's 3, appropriate affect, intact judgment & insight - Allied health notes Allied health notes reviewed: nursing - Labs CBC & Chem 7: 08/14/20 03:33 08/14/20 03:33 Labs: Abnormal Lab Results - Last 24 Hours (Table) 08/13/20 08/13/20 08/13/20 Range/Units 08:51 11:37 17:29 RBC (3.80-5.40) m/uL Hgb (11.4-16.0) gm/dL Hct (34.0-46.0) % Sodium (137-145) mmol/L BUN (7-17) mg/dL Glucose (74-99) mg/dL POC Glucose (mg/dL) 112 H 118 H 150 H (75-99) mg/dL Calcium (8.4-10.2) mg/dL Total Protein (6.3-8.2) g/dL Albumin (3.5-5.0) g/dL 08/13/20 08/13/20 08/14/20 Range/Units 19:54 20:53 01:05 RBC (3.80-5.40) m/uL Hgb (11.4-16.0) gm/dL Hct (34.0-46.0) % Sodium (137-145) mmol/L BUN (7-17) mg/dL Glucose (74-99) mg/dL POC Glucose (mg/dL) 136 H 130 H 118 H (75-99) mg/dL Calcium (8.4-10.2) mg/dL Total Protein (6.3-8.2) g/dL Albumin (3.5-5.0) g/dL 08/14/20 08/14/20 Range/Units 03:33 03:33 RBC 2.30 L (3.80-5.40) m/uL Hgb 7.0 L (11.4-16.0) gm/dL Hct 21.0 L (34.0-46.0) % Sodium 132 L (137-145) mmol/L BUN 18 H (7-17) mg/dL Glucose 108 H (74-99) mg/dL POC Glucose (mg/dL) (75-99) mg/dL Calcium 8.3 L (8.4-10.2) mg/dL Total Protein 4.9 L (6.3-8.2) g/dL Albumin 2.9 L (3.5-5.0) g/dL - Imaging and Cardiology Chest x-ray: report reviewed, image reviewed Assessment and Plan Assessment: 1. 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 Preoperative hyponatremia, sodium level 120 just prior to admission, resolved 3. History of pulmonary fibrosis, asthma 4. Hypertension 5. Hyperlipidemia, treated, cholesterol 186, LDL 98 6. Previous tobacco dependence, preoperative FEV1 107% 7. Obesity 8. Osteoarthritis 9. Cervical stenosis post anterior cervical decompression, discectomy and fusion 10. TIA as a child around age 11 11. Family history of premature coronary artery disease with father diagnosed in his early 50s 12. Postoperative acute blood loss anemia, expected, status post transfusion 13. Postoperative hypotension, expected 14. Candidal stomatitis Plan: 1. Continue aspirin, statin, Plavix, and beta sisi. Will increase metoprolol tartrate 50 mg by mouth twice a day. 2. Continue Midodrine blood pressure support. 3. Encourage incentive spirometry is 10 times every hour while awake. Bronchodilators per pulmonology/critical care management. 4. Increase activity, ambulate as tolerated. PT/OT/cardiac rehab following. 5. Will monitor daily labs and chest x-rays. Electrolyte replacement per protocol. No further transfusion at this point. Will give 20 mg IV push Lasix 1 today. 6. GI/DVT prophylaxis 7. Insulin management per primary care service. Patient is not diabetic, hemoglobin A1c 5.5%. 8. Nystatin swish and swallow started for Candidal stomatitis. 9. May bladder scan and straight cath for greater than 300 mL residual. Bladder scan every 6 hours and when necessary. 10. Strict accurate intake and output. Daily weights 11. Transferred to the cardiac stepdown unit in bed available. Discharge planning is in place, anticipate discharge home with home health care within the next 24-48 hours. 12. More recommendations to follow based on patient's clinical course. Time with Patient: Greater than 30
[2020-08-14] MEDS: NYSTATIN 100,000 UNIT/ML SUSP 500,000 UNIT/5 ML CUP PO SCH ×4 (09:42→20:49)
--- NOTE | 2020-08-14 11:15 | P.PN ---
Subjective Progress Note Date: 08/14/20 Principal diagnosis: 75-year-old female who was admitted to the hospital on August 06. She came in because her sodium was low. I saw the patient in the office for preop clearance in anticipation of bypass grafting. She actually had the surgery today. Currently, she is on the volume assist control mode, rate of 12, tidal volume 350, FiO2 70%, and a PEEP of 5. Plendil same settings but 100%, the pO2 was 243, the pCO2 is 44, and a pH of 7.34. She is currently on saline at 50 mL an hour, nitroglycerin at 5 mcg/m, propofol has been turned off, and she is on norepinephrine at 5 mcg/m. She apparently had a two-vessel bypass grafting. She has a history of hyperlipidemia, hypertension, CAD, skin cancer, arthritis, and possible TIA. In addition, I saw her in the distant past for some interstitial lung disease/pulmonary fibrosis. The patient did have a complete pulmonary function test in my office. The patient's lung function including the FEV1, MVV, and RV/TLC ratio were all excellent. Based on her numbers, I thought she was at low increased operative risk. This was passed onto the cardiothoracic team. The patient surgery included a bypass graft using the left internal mammary artery to the left anterior descending coronary artery, and a reverse saphenous vein graft from aorta to the first obtuse marginal artery. She also had exclusion of the left atrial appendage using a 35 mm AtriClip, endoscopic harvesting of the left greater saphenous vein, intraoperative graft flow measurements using the Medi-Stim system and intraoperative transesophageal echocardiogram. Progress note dated 08/11/2020. 75-year-old female postop day #2, status post two-vessel bypass grafting. Currently, the patient is doing relatively well. She is on 2 L nasal cannula. She is getting lactated Ringer's at 50 mL an hour, norepinephrine at 8.2 mcg/m, insulin at 0.5 units an hour. She was extubated about 4-1/2 hours after leaving the operating room. She had a pretty uneventful night according to her nurse. Her chest x-rays reviewed. This shows typical postoperative changes. I did a preop evaluation on her, and her lung function is mentioned in my consultation were excellent. She does have a history of underlying mild pulmonary fibrosis/interstitial lung disease. Currently, her white count is 7.9, hemoglobin 7.2, hematocrit 20.4, and platelet count 109,000. PT is 12.1, INR 1.2, PTT 41.1. Her last blood gases prior to extubation show a PaO2 of 114, PaC O2 of 43, and a pH of 7.37. Sodium is 133, potassium 4.3, chlorides 104, CO2 24, anion gap 5, BUN 13, and creatinine 0.63. Albumin is 2.9. Calcium is 7.7. Ionized calcium is normal. On 08/12/2020 patient seen in follow-up in the intensive care unit, she is awake and alert, she is in no acute distress, today is postoperative day 3 status post two-vessel bypass grafting. She is currently on 2 L of oxygen pulse ox of 90%, vital signs have been stable. Patient is working on incentive spirometer, today's chest x-ray has been reviewed showing a component of interstitial edema, basilar atelectasis versus edema, relatively stable exam. Patient remains on vasopressor support in the form of the fat currently running at 13 mics per minute, and she did require volume in the form of 5% albumin ordered by cardiothoracic surgery. She received a total of thousand mL of 5% albumin yesterday, with additional 250 of albumin this morning. Patient is significantly positive terms of her weight, +14 kg since admission. Patient still has mediastinal chest tube in place with a total of 370 of thin serosanguineous fluid in the last 24 hours, and left lateral chest tube put out 810 of fluid. Patient's 0.9 normal saline is running at 20 ML per hour. On 08/14/2020 patient seen in follow-up in intensive care unit, she sits up in the recliner, in no acute distress, she is currently on room air. Pulse ox is 91%, she is working incentive spirometer, she is achieving 750 today, her chest tubes have been removed, her IVs have been hep-locked, she's been hemodynamically stable, chest x-ray has been reviewed showing residual atelectasis, possible small effusion. Objective - Vital Signs Vital signs: Vital Signs Temp 98.5 F 08/14/20 04:00 Pulse 96 08/14/20 08:22 Resp 21 08/14/20 08:00 BP 133/68 08/14/20 08:00 Pulse Ox 91 L 08/14/20 08:00 Intake & Output 08/13/20 08/14/20 08/14/20 18:59 06:59 18:59 Intake Total 318 78 0 Output Total 9312 640 4666 Balance -867 -122 -1272 Weight 92.2 kg Intake: IV 138 78 0 Pressure bag 18 18 Sodium Chloride 0.9% 1, 120 60 0 000 ml @ 20 mls/hr IV . Q24H [facility] Rx#:[id number] Oral 180 Output: Chest Tube Drainage 10 Left Lateral Chest 10 Urine 1175 200 925 Post Void Residual 347 Other: Voiding Method Bedside Commode Bedside Commode # Voids 1 1 ABP, PAP, CO, CI - Last Documented Arterial Blood Pressure 95/50 Pulmonary Artery Pressure 37/16 Cardiac Output 6 Cardiac Index 3.4 - Exam GENERAL EXAM: Alert, very pleasant, 75-year-old white female, room air pulse ox is 91% % comfortable in no apparent distress. HEAD: Normocephalic/atraumatic. EYES: Normal reaction of pupils, equal size. Conjunctiva pink, sclera white. NOSE: Clear with pink turbinates. THROAT: No erythema or exudates. NECK: No masses, no JVD, no thyroid enlargement, no adenopathy. CHEST: No chest wall deformity. Symmetrical expansion. Midsternal incision is clean dry and intact, mediastinal and left pleural chest tube site clean dry and intact LUNGS: Equal air entry with diminished sounds at the bases CVS: Regular rate and rhythm, normal S1 and S2, no gallops, no murmurs, no rubs ABDOMEN: Soft, nontender. No hepatosplenomegaly, normal bowel sounds, no guarding or rigidity. EXTREMITIES: No clubbing, no edema, no cyanosis, 2+ pulses and upper and lower extremities. MUSCULOSKELETAL: Muscle strength and tone normal. SPINE: No scoliosis or deformity SKIN: No rashes CENTRAL NERVOUS SYSTEM: Alert and oriented -3. No focal deficits, tone is normal in all 4 extremities. PSYCHIATRIC: Alert and oriented -3. Appropriate affect. Intact judgment and insight. - Labs CBC & Chem 7: 08/14/20 03:33 08/14/20 03:33 Labs: Abnormal Lab Results - Last 24 Hours (Table) 08/13/20 08/13/20 08/13/20 Range/Units 11:37 17:29 19:54 RBC (3.80-5.40) m/uL Hgb (11.4-16.0) gm/dL Hct (34.0-46.0) % Sodium (137-145) mmol/L BUN (7-17) mg/dL Glucose (74-99) mg/dL POC Glucose (mg/dL) 118 H 150 H 136 H (75-99) mg/dL Calcium (8.4-10.2) mg/dL Total Protein (6.3-8.2) g/dL Albumin (3.5-5.0) g/dL 08/13/20 08/14/20 08/14/20 Range/Units 20:53 01:05 03:33 RBC 2.30 L (3.80-5.40) m/uL Hgb 7.0 L (11.4-16.0) gm/dL Hct 21.0 L (34.0-46.0) % Sodium (137-145) mmol/L BUN (7-17) mg/dL Glucose (74-99) mg/dL POC Glucose (mg/dL) 130 H 118 H (75-99) mg/dL Calcium (8.4-10.2) mg/dL Total Protein (6.3-8.2) g/dL Albumin (3.5-5.0) g/dL 08/14/20 Range/Units 03:33 RBC (3.80-5.40) m/uL Hgb (11.4-16.0) gm/dL Hct (34.0-46.0) % Sodium 132 L (137-145) mmol/L BUN 18 H (7-17) mg/dL Glucose 108 H (74-99) mg/dL POC Glucose (mg/dL) (75-99) mg/dL Calcium 8.3 L (8.4-10.2) mg/dL Total Protein 4.9 L (6.3-8.2) g/dL Albumin 2.9 L (3.5-5.0) g/dL Assessment and Plan Plan: #1. Status post two-vessel bypass grafting, exclusion of left atrial appendage, and intraoperative transesophageal echocardiogram, postoperative day #4. #2. Routine postoperative ventilator management, with extubation 4-1/2 hours after leaving the operating room. #3. Acute hypoxic respiratory failure related to hypoventilation, atelectasis and fluid overload #4. Hypotension, likely hypovolemic related to postoperative blood loss anemia, expected outcome of bypass surgery #5. History of stable/mild pulmonary fibrosis, with excellent preoperative lung function, including FEV1, MVV, and RV/TLC ratio. #6. Hyponatremia, improving #7. History of coronary artery disease. #8. History of hyperlipidemia. #9. History of hypertension. #10. History of skin cancer. #11. History of arthritis. #12. Status post bilateral cataract removal with lens implants. #13. History of cervical fusion. Plan: Continue current medical treatment, encourage deep breathing and coughing, today's chest x-ray has been reviewed showing residual atelectasis, and small pleural effusions, patient received a dose of IV Lasix [address] surgery. Not on any vasopressor support. GI and DVT prophylaxis per CT surgery, continue his bronchodilators, patient has developed oral thrush, we'll order nystatin swish and swallow. We'll continue to closely follow along with CT surgery I performed a history & physical examination of the patient and discussed their management with my nurse practitioner, Carolina Post. I reviewed the nurse practitioner's note and agree with the documented findings and plan of care. Lung sounds are positive for diminished breath sounds. The findings and the impression was discussed with the patient. I attest to the documentation by the nurse practitioner. Time with Patient: Less than 30
[2020-08-14 11:42] LABS: Glucose,Whole Blood 116 mg/dL (75-99)
--- NOTE | 2020-08-14 13:33 | P.PN ---
Subjective Progress Note Date: 08/14/20 HISTORY OF PRESENT ILLNESS This is a 75-year-old female patient of Dr. Avila and Dr. Garcia with a past medical history of pulmonary fibrosis, asthma, hypertension, hyperlipidemia, obesity, osteoarthritis, cervical stenosis status post anterior cervical decompression, discectomy and fusion. Patient recently underwent stress testing which demonstrated anterior wall ischemia with small reversible defect. It was recommended to undergo heart catheterization which was completed and showed calcified coronary artery, significant distal left main by IVUS, mild to moderate disease of the left anterior descending artery. Transthoracic echo was completed showed EF of 55%, mild mitral regurgitation, mild tricuspid regurgitation. Patient was then referred for coronary artery bypass grafting. During her outpatient preoperative workup patient was noted to have hyponatremia with sodium level of 120. She was advised to go to the emergency department to be admitted to correct her sodium level. Patient reports she's asymptomatic, she denies any chest pain, palpitations, shortness of breath, fever, chills, no nausea, vomiting, diarrhea, or diarrhea. Consult placed for nephrology, she was started on 0.9 normal saline at 75 mL per hour. 08/07: Patient has been afebrile, heart rate 62, blood pressure 132/70, pulse ox 90% on room air. Sodium today is at 125. Potassium 4.0, chloride 90, CO2 20, BUN 20 creatinine 0.7. Patient is followed by nephrology and received sodium chloride tablet 2 g once this morning. Repeat sodium level at 2 PM, cortisol level ordered and TSH. Patient states that she is feeling well today. She denies any lightheadedness or dizziness. No chest pain or shortness of breath. She is scheduled for open heart surgery on Monday and anticipates that she will be here through the weekend. 08/08 sodium is much better, instructions were for discontinuation of IV fluids, currently running at 75 mL an hour, sodium 135, seen by nephrology, patient is scheduled to have open heart surgery on Monday, and the would consult Dr. Sethi, and Dr. Harrison, who would assist with preop CABG management, patient denies any nausea vomiting, blood pressure is significantly much better today, no chest pain no difficulty breathing, but pressure fluctuates between 99 systolic to 161 systolic, heart rate stable at 60-69, creatinine at 0.08 urinalysis negative, patient continues to be off hydrochlorothiazide 08/09 patient feels well today, no new concerns of chest pain shortness of breath no lightheadedness no dizziness, no GI losses no pleurisy, no dysuria. Patient's serum sodium is 138, electrolytes are normal creatinine is 0.8, expected to proceed with CABG as scheduled for August 10Monday morning. board, comes felt with cardiology to assist with postcardiac management in the morning. She will be made nothing by mouth post midnight tonight 08/10: Patient is gone this morning for CABG. Patient was not seen and evaluated at this time. 08/11: Patient is status post CABG, left internal mammary artery to the left anterior descending artery, reverse saphenous vein graft from the aorta to the first obtuse marginal artery, postop day #1. Patient was successfully extubated. Patient is seen today in the intensive care unit. Patient complains of generalized fatigue and weakness. Temperature max 100.6, heart rate in the 70s and 80s, respiratory rate 25, blood pressure 91/39, pulse ox 93% on 2 L nasal cannula. WBC 7.9, hemoglobin 7.2, platelet count 109. INR is 1.2. Sodium 133 otherwise elect lites are normal, creatinine 0.63. Total bilirubin 0.6. AST 37, lymphocytes 26. Repeat chest x-ray reveals difficult to exclude component of volume overload, interstitial edema, there may be basilar atelectasis versus edema, associated effusion. Patient is reaching 500 on incentive spirometry. 08/12: Patient remains in the intensive care unit and looks more comfortable today. Patient is resting in a chair. Her pulse ox is running 88-90% on 2 L but respiratory status appears stable. She's been afebrile, heart rate in the 80s, blood pressure 111/47. Blood sugars have been running 107-133. Insulin drip will be discontinued and patient placed on NovoLog scale every 4 hours until nighttime and transition to before meals at bedtime. Norepinephrine to be weaned. IV lasix was ordered this morning. WBC 11.7, hemoglobin 7.3, platelet count 112. Sodium 131, creatinine 0.82. Mediastinal chest tube to be removed today and Yu to be removed today. 08/13: Patient remains in the intensive care unit. She appears to be comfortable. She is found sitting up in chair. No shortness of breath. She has occasional cough. She is working on incentive spirometry. Patient has been afebrile, heart rate 100, blood pressure 101/53, pulse ox 97% on 2 L nasal cannula. cardiac monitor sinus rhythm. WBC 7.4, hemoglobin 7, platelet count 107. Sodium 130, potassium 4.3, chloride 103, CO2 25, BUN 21 and creatinine 0.86. Blood sugar 104. Capillary blood glucose running between 104 and 134. Repeat chest x-ray reveals no evident complications status post chest tube removal. Persistent atelectatic changes. Cardiac megaly. Postop changes. Patient received 1 dose of IV Lasix this morning. Yu catheter was removed yesterday and patient has been straight cathed this morning. Right Cordis to be removed. 08/14: Patient is seen today in the intensive care unit. She states she is not doing well because she has thrush is having difficulty eating. She was started on nystatin swish and swallow this morning. He has been afebrile, heart rate 96, blood pressure 133/68, pulse ox 91% on room air. cardiac monitor has been in sinus rhythm. She is reaching 750 on incentive spirometry. WBC 8, hemoglobin 7, creatinine 0.72. Blood sugars running between 108 130. Patient is scheduled to be transferred out of the intensive care unit today. Discussed discharge planning with the patient and inpatient rehab may be a good option for her. Cardiothoracic team to address. REVIEW OF SYSTEMS Constitutional: Reports fatigue, Denies chills, Denies fever, reports mild fatigue. Ears, nose, mouth and throat: Denies headache, Denies nasal congestion, Denies nasal discharge, Denies sinus pain, Denies sinus pressure, reports sore throat Cardiovascular: Reports chest discomfort, Denies edema, Denies irregular heart beat, Denies leg edema, Denies orthopnea, Denies palpitations, Denies shortness of breath, Denies syncope Respiratory: Denies congestion, Denies cough, Denies pain, Denies respiratory infections, Denies wheezing Gastrointestinal: Denies abdominal pain, Denies constipation, Denies diarrhea, Denies dyspepsia, Denies heartburn, Denies hematemesis, Denies loss of appetite, Denies nausea, Denies vomiting Genitourinary: Denies dysuria, Denies hematuria, Denies urgency Musculoskeletal: Denies arm numbness/tingling, Denies atrophy, Denies fractures, Denies frequent falls, Denies gait dysfunction, Denies myalgias, Denies neck pain, Denies neck stiffness Integumentary: Denies dryness, Denies lesions, Denies pruritus, Denies sores, Denies wounds Neurological: Denies confusion, Denies gait dysfunction, Denies headaches, Denies paralysis, Denies seizures, Denies spasticity, Denies syncope, Denies vertigo Psychiatric: Denies anxiety, Denies confusion, Denies irritability, Denies mood swings, Denies paranoia, Denies suicidal ideation Endocrine: Denies excessive sweating, Denies fatigue, Denies high blood sugars, Denies palpitations, Denies polyphagia, Denies polyuria, Denies thyroid mass PHYSICAL EXAMINATION Gen: This is a 75-year-old female. She is sitting in recliner and appears to be comfortable and in no acute distress. HEENT: Head is atraumatic, normocephalic. Pupils equal, round. Sclerae is anicteric. Right-sided Cordis in place. NECK: Supple. No JVD. No lymphadenopathy. No thyromegaly. LUNGS: Diminished bilaterally. No intercostal retractions. HEART: Regular rate and rhythm. No murmur. left pleural chest tube. ABDOMEN: Soft. Bowel sounds are present. No masses. No tenderness. EXTREMITIES: No pedal edema. No calf tenderness. Dorsalis pedis palpable bilaterally. NEUROLOGICAL: Patient is awake, alert and oriented x3. Cranial nerves 2 through 12 are grossly intact. ASSESSMENT AND PLAN 1. Hyponatremia, resolved. Nephrology is following. 2. Coronary artery disease with left main disease status post CABG. Continue current management per cardiothoracic team. 3. History of pulmonary fibrosis. Continue duo nebs and albuterol 4. Asthma, mild intermittent. Continue ipratropium albuterol nebulizers 5. Hyperlipidemia. Continue statin daily 6. Hypertension. Continue Lopressor increased to 25 mg twice daily. 7. GI prophylaxis. Pantoprazole 8. DVT prophylaxis: SCDs 9. Blood sugar management in a nondiabetic. insulin scale ACHS. DISCHARGE PLAN Home with homecare most likely Impression and plan of care have been directed as dictated by the signing physician. Monica Fragoso nurse practitioner acting as scribe for signing physician. Objective - Vital Signs Vital signs: Vital Signs Temp 98.5 F 08/14/20 04:00 Pulse 86 08/14/20 11:42 Resp 21 08/14/20 08:00 BP 133/68 08/14/20 08:00 Pulse Ox 91 L 08/14/20 08:00 Intake & Output 08/13/20 08/14/20 08/14/20 18:59 06:59 18:59 Intake Total 318 78 0 Output Total 2914 471 7261 Balance -867 -122 -1272 Weight 92.2 kg Intake: IV 138 78 0 Pressure bag 18 18 Sodium Chloride 0.9% 1, 120 60 0 000 ml @ 20 mls/hr IV . Q24H [facility] Rx#:[id number] Oral 180 Output: Chest Tube Drainage 10 Left Lateral Chest 10 Urine 1175 200 925 Post Void Residual 347 Other: Voiding Method Bedside Commode Bedside Commode # Voids 1 1 ABP, PAP, CO, CI - Last Documented Arterial Blood Pressure 95/50 Pulmonary Artery Pressure 37/16 Cardiac Output 6 Cardiac Index 3.4 - Labs CBC & Chem 7: 08/14/20 03:33 08/14/20 03:33 Labs: Abnormal Lab Results - Last 24 Hours (Table) 08/13/20 08/13/20 08/13/20 Range/Units 17:29 19:54 20:53 RBC (3.80-5.40) m/uL Hgb (11.4-16.0) gm/dL Hct (34.0-46.0) % Sodium (137-145) mmol/L BUN (7-17) mg/dL Glucose (74-99) mg/dL POC Glucose (mg/dL) 150 H 136 H 130 H (75-99) mg/dL Calcium (8.4-10.2) mg/dL Total Protein (6.3-8.2) g/dL Albumin (3.5-5.0) g/dL 08/14/20 08/14/20 08/14/20 Range/Units 01:05 03:33 03:33 RBC 2.30 L (3.80-5.40) m/uL Hgb 7.0 L (11.4-16.0) gm/dL Hct 21.0 L (34.0-46.0) % Sodium 132 L (137-145) mmol/L BUN 18 H (7-17) mg/dL Glucose 108 H (74-99) mg/dL POC Glucose (mg/dL) 118 H (75-99) mg/dL Calcium 8.3 L (8.4-10.2) mg/dL Total Protein 4.9 L (6.3-8.2) g/dL Albumin 2.9 L (3.5-5.0) g/dL 08/14/20 Range/Units 11:40 RBC (3.80-5.40) m/uL Hgb (11.4-16.0) gm/dL Hct (34.0-46.0) % Sodium (137-145) mmol/L BUN (7-17) mg/dL Glucose (74-99) mg/dL POC Glucose (mg/dL) 116 H (75-99) mg/dL Calcium (8.4-10.2) mg/dL Total Protein (6.3-8.2) g/dL Albumin (3.5-5.0) g/dL
--- NOTE | 2020-08-14 15:29 | P.PN ---
Subjective This is a pleasant 75-year-old female status post coronary artery bypass grafting. She is seen and examined sitting up in the chair in no acute distress. She complains of incisional site discomfort with deep breathing or cough. She denies exertional chest discomfort. Blood pressure 133/68 heart rate 95 afebrile maintaining oxygen saturation on nasal cannula. Laboratory data reviewed, WBC 8, hemoglobin 7, platelets 159, sodium 132, potassium 4.2, creatinine 0.72. Chest x-ray this morning reveals small effusion. GENERAL: Well-appearing, well-nourished and in no acute distress. NECK: Supple without JVD or thyromegaly. LUNGS: Faint bibasilar rales, no wheezes or rhonchi. Respiration equal and unlabored. HEART: Regular rate and rhythm with soft systolic ejection murmur at the base, no rubs or gallops. S1 and S2 heard. Heart hugger in place. Sternal dressing intact. EXTREMITIES: Normal range of motion, no edema. No clubbing or cyanosis. Peripheral pulses intact. ASSESSMENT Coronary artery disease s/p bypass grafting Pulmonary fibrosis Hypertension Dyslipidemia PLAN Continue current medical regimen. Encourage incentive spirometer use. Nurse Practitioner note has been reviewed, I agree with a documented findings and plan of care. Patient was seen and examined. Objective - Vital Signs Vital signs: Vital Signs Temp 98.5 F 08/14/20 04:00 Pulse 86 08/14/20 11:42 Resp 21 08/14/20 12:00 BP 133/68 08/14/20 08:00 Pulse Ox 91 L 08/14/20 08:00 Intake & Output 08/13/20 08/14/20 08/14/20 18:59 06:59 18:59 Intake Total 318 78 0 Output Total 8247 404 2275 Balance -867 -122 -1272 Weight 92.2 kg Intake: IV 138 78 0 Pressure bag 18 18 Sodium Chloride 0.9% 1, 120 60 0 000 ml @ 20 mls/hr IV . Q24H [facility] Rx#:[id number] Oral 180 Output: Chest Tube Drainage 10 Left Lateral Chest 10 Urine 1175 200 925 Post Void Residual 347 Other: Voiding Method Bedside Commode Bedside Commode Bedside Commode # Voids 1 1 ABP, PAP, CO, CI - Last Documented Arterial Blood Pressure 95/50 Pulmonary Artery Pressure 37/16 Cardiac Output 6 Cardiac Index 3.4 - Labs CBC & Chem 7: 08/14/20 03:33 08/14/20 03:33 Labs: Abnormal Lab Results - Last 24 Hours (Table) 08/13/20 08/13/20 08/13/20 Range/Units 17:29 19:54 20:53 RBC (3.80-5.40) m/uL Hgb (11.4-16.0) gm/dL Hct (34.0-46.0) % Sodium (137-145) mmol/L BUN (7-17) mg/dL Glucose (74-99) mg/dL POC Glucose (mg/dL) 150 H 136 H 130 H (75-99) mg/dL Calcium (8.4-10.2) mg/dL Total Protein (6.3-8.2) g/dL Albumin (3.5-5.0) g/dL 08/14/20 08/14/20 08/14/20 Range/Units 01:05 03:33 03:33 RBC 2.30 L (3.80-5.40) m/uL Hgb 7.0 L (11.4-16.0) gm/dL Hct 21.0 L (34.0-46.0) % Sodium 132 L (137-145) mmol/L BUN 18 H (7-17) mg/dL Glucose 108 H (74-99) mg/dL POC Glucose (mg/dL) 118 H (75-99) mg/dL Calcium 8.3 L (8.4-10.2) mg/dL Total Protein 4.9 L (6.3-8.2) g/dL Albumin 2.9 L (3.5-5.0) g/dL 08/14/20 Range/Units 11:40 RBC (3.80-5.40) m/uL Hgb (11.4-16.0) gm/dL Hct (34.0-46.0) % Sodium (137-145) mmol/L BUN (7-17) mg/dL Glucose (74-99) mg/dL POC Glucose (mg/dL) 116 H (75-99) mg/dL Calcium (8.4-10.2) mg/dL Total Protein (6.3-8.2) g/dL Albumin (3.5-5.0) g/dL
[2020-08-14 15:59] LABS: Glucose,Whole Blood 129 mg/dL (75-99)
[2020-08-14 16:59] LABS: Glucose,Whole Blood 116 mg/dL (75-99)
--- NOTE | 2020-08-14 17:14 | P.GSCN ---
History of Present Illness Consult date: 08/14/20 Reason for Consult: Urinary retention History of present illness: This a 75 yo female S/P CABG on 08/10, she is currently in the ICU. Urology is consultative for urinary retention. Her Yu catheter was placed intraoperatively, and was removed on August 12. Since catheter removal the patient has been able to void approximately 350-400 on her own, and having PVR in the 350s. She denies any voiding issues at baseline, indicated prior to your surgery should been able to void without any difficulties. No history of recurrent UTIs, kidney stones, or previous history of urinary retention. She is asymptomatic from her elevated PVR. Review of Systems - Constitutional Denies fever, Denies weight loss - EENT Ears, nose, mouth and throat: Denies dysphagia - Cardiovascular Denies chest pain, Denies shortness of breath - Respiratory Denies cough, Denies 7 - Gastrointestinal Reports as per HPI - Genitourinary Genitourinary: Denies dysuria, Denies hematuria, Denies kidney stones - Neurological Denies headaches, Denies syncope Past Medical History Past Medical History: Asthma, Hyperlipidemia, Hypertension Additional Past Medical History / Comment(s): skin cancer with removals, arthritis multiple joints, back and cervical pain, ?TIA in her teens-shows up on scan?, pulmonary fibrosis History of Any Multi-Drug Resistant Organisms: None Reported Past Surgical History: Cholecystectomy, Heart Catheterization, Tonsillectomy, Tubal Ligation Additional Past Surgical History / Comment(s): 2 cardiac caths without intervention, bilateral cataract removal with lens implants, skin cancer removals, cyst removed from neck, colonoscopy, cervical fusion Past Anesthesia/Blood Transfusion Reactions: No Reported Reaction Additional Past Anesthesia/Blood Transfusion Reaction / Comm: Pt has never received blood. Past Psychological History: No Psychological Hx Reported Additional Psychological History / Comment(s): Pt resides with her spouse. She drives. Smoking Status: Former smoker Past Alcohol Use History: Occasional Additional Past Alcohol Use History / Comment(s): Pt started smoking in 3 and quit in 1981. She smoked one and half packs per day. Past Drug Use History: None Reported - Past Family History Brother(s) Family Medical History: Coronary Artery Disease (CAD) Additional Family Medical History / Comment(s): "bad heart" aneurysm Sister(s) Family Medical History: Cancer Additional Family Medical History / Comment(s): breast cancer Mother Family Medical History: Cancer, Coronary Artery Disease (CAD) Additional Family Medical History / Comment(s): Lymphoma, had a pacemaker. Mother at the age of 92yrs. Father Family Medical History: Coronary Artery Disease (CAD), Myocardial Infarction (SC) Additional Family Medical History / Comment(s): Father of a SC at the age of 63 yrs, diagnosed with CAD in his early 50s. Medications and Allergies Home Medications Medication Instructions Recorded Confirmed Type Ipratropium-Albuterol Nebulize 3 ml INHALATION RT-QID PRN 05/18/15 08/06/20 History [Duoneb 0.5 mg-3 mg/3 ml Soln] Losartan Potassium 100 mg PO DAILY 05/18/15 08/06/20 History Simvastatin [Zocor] 40 mg PO DAILY 05/18/15 08/06/20 History Aspirin EC [Ecotrin Low Dose] 81 mg PO DAILY 04/10/17 08/06/20 History Ibuprofen [Motrin] 800 mg PO TID PRN 12/05/17 08/06/20 History Nitroglycerin Sl Tabs [Nitrostat] 0.5 tab SUBLINGUAL Q5M PRN 07/22/20 08/06/20 History hydroCHLOROthiazide 25 mg PO DAILY 07/27/20 08/06/20 History Isosorbide Mononitrate ER [Imdur] 15 mg PO DAILY 08/05/20 08/05/20 History Albuterol Sulfate [Albuterol 2 puff PO RT-Q6H PRN 08/06/20 08/06/20 History Sulfate Hfa] Metoprolol Tartrate [Lopressor] 12.5 mg PO BID 08/06/20 08/06/20 History Allergies Allergy/AdvReac Type Severity Reaction Status Date / Time adhesive Allergy blisters Verified 08/06/20 13:48 latex Allergy Rash/Hives Verified 08/06/20 13:48 Surgical - Exam Vital Signs Temp Pulse Resp BP Pulse Ox 98.5 F 68 18 129/69 97 08/06/20 12:23 08/06/20 12:23 08/06/20 12:23 08/06/20 12:23 08/06/20 12:23 - General well developed, well nourished, no distress, no pain - Eyes PERRL, normal ocular movement - ENT normal nares, normal mucosa - Respiratory normal expansion, normal respiratory effort - Neurologic no disoriented, no combative, no confused - Psychiatric oriented to time, oriented to person, oriented to place Results - Labs 08/14/20 03:33 08/14/20 03:33 Abnormal Lab Results - Last 24 Hours (Table) 08/13/20 08/13/20 08/13/20 Range/Units 17:29 19:54 20:53 RBC (3.80-5.40) m/uL Hgb (11.4-16.0) gm/dL Hct (34.0-46.0) % Sodium (137-145) mmol/L BUN (7-17) mg/dL Glucose (74-99) mg/dL POC Glucose (mg/dL) 150 H 136 H 130 H (75-99) mg/dL Calcium (8.4-10.2) mg/dL Total Protein (6.3-8.2) g/dL Albumin (3.5-5.0) g/dL 08/14/20 08/14/20 08/14/20 Range/Units 01:05 03:33 03:33 RBC 2.30 L (3.80-5.40) m/uL Hgb 7.0 L (11.4-16.0) gm/dL Hct 21.0 L (34.0-46.0) % Sodium 132 L (137-145) mmol/L BUN 18 H (7-17) mg/dL Glucose 108 H (74-99) mg/dL POC Glucose (mg/dL) 118 H (75-99) mg/dL Calcium 8.3 L (8.4-10.2) mg/dL Total Protein 4.9 L (6.3-8.2) g/dL Albumin 2.9 L (3.5-5.0) g/dL 08/14/20 08/14/20 08/14/20 Range/Units 11:40 15:48 16:58 RBC (3.80-5.40) m/uL Hgb (11.4-16.0) gm/dL Hct (34.0-46.0) % Sodium (137-145) mmol/L BUN (7-17) mg/dL Glucose (74-99) mg/dL POC Glucose (mg/dL) 116 H 129 H 116 H (75-99) mg/dL Calcium (8.4-10.2) mg/dL Total Protein (6.3-8.2) g/dL Albumin (3.5-5.0) g/dL Diabetes panel 08/14/20 Range/Units 03:33 Sodium 132 L (137-145) mmol/L Potassium 4.2 (3.5-5.1) mmol/L Chloride 102 (98-107) mmol/L Carbon Dioxide 26 (22-30) mmol/L BUN 18 H (7-17) mg/dL Creatinine 0.72 (0.52-1.04) mg/dL Glucose 108 H (74-99) mg/dL Calcium 8.3 L (8.4-10.2) mg/dL AST 28 (14-36) U/L ALT 19 (4-34) U/L Alkaline Phosphatase 63 (38-126) U/L Total Protein 4.9 L (6.3-8.2) g/dL Albumin 2.9 L (3.5-5.0) g/dL Calcium panel 08/14/20 Range/Units 03:33 Calcium 8.3 L (8.4-10.2) mg/dL Albumin 2.9 L (3.5-5.0) g/dL Pituitary panel 08/14/20 Range/Units 03:33 Sodium 132 L (137-145) mmol/L Potassium 4.2 (3.5-5.1) mmol/L Chloride 102 (98-107) mmol/L Carbon Dioxide 26 (22-30) mmol/L BUN 18 H (7-17) mg/dL Creatinine 0.72 (0.52-1.04) mg/dL Glucose 108 H (74-99) mg/dL Calcium 8.3 L (8.4-10.2) mg/dL Adrenal panel 08/14/20 Range/Units 03:33 Sodium 132 L (137-145) mmol/L Potassium 4.2 (3.5-5.1) mmol/L Chloride 102 (98-107) mmol/L Carbon Dioxide 26 (22-30) mmol/L BUN 18 H (7-17) mg/dL Creatinine 0.72 (0.52-1.04) mg/dL Glucose 108 H (74-99) mg/dL Calcium 8.3 L (8.4-10.2) mg/dL Total Bilirubin 0.9 (0.2-1.3) mg/dL AST 28 (14-36) U/L ALT 19 (4-34) U/L Alkaline Phosphatase 63 (38-126) U/L Total Protein 4.9 L (6.3-8.2) g/dL Albumin 2.9 L (3.5-5.0) g/dL Assessment and Plan Assessment: 75 yo female S/P CABG on 08/10, urology is consulted for urinary retention. Yu was removed on August 12. Patient has been able to void but having slightly elevated PVR at 350s. She's been able to void 350-400 mL with PVR in 350s. No voiding issues a baseline Plan: - Continue to measure PVR after patient voids, if PVR is greater than 400 perform CIC. If the next 24-hour patient's PVR c trend upward then recommend place a Yu for 1 week -Cab follow-up as an outpatient in Urology Clinic in 1-2 weeks
[2020-08-14] MEDS ORDERED: MIDODRINE 5 MG TAB PO SCH (17:30)
[2020-08-14] MEDS: SENNOSIDES-DOCUSATE SODIUM 1 EACH TAB PO SCH (20:13)
[2020-08-14 20:34] LABS: Glucose,Whole Blood 129 mg/dL (75-99)
[2020-08-14 23:50] LABS: Glucose,Whole Blood 135 mg/dL (75-99)
[2020-08-15] MEDS: INSULIN ASPART (NovoLOG) 100 UNIT/ML VIAL SQ SCH ×6 (00:02→21:05)
[2020-08-15] MEDS: IPRATROPIUM-ALBUTEROL 3 ML NEB INHALATION PRN ×2 (02:22→19:49)
[2020-08-15] MEDS: ACETAMINOPHEN TAB 325 MG TAB PO PRN ×4 (03:06→22:58)
[2020-08-15 05:34] LABS: Glucose,Whole Blood 120 mg/dL (75-99)
[2020-08-15 06:01] LABS: Glucose,Whole Blood 125 mg/dL (75-99)
[2020-08-15] MEDS: PANTOPRAZOLE 40 MG TABLET PO SCH (06:27)
[2020-08-15] MEDS: IPRATROPIUM-ALBUTEROL 3 ML NEB INHALATION SCH ×4 (07:36→19:54)
--- NOTE | 2020-08-15 07:49 | XR ---
EXAMINATION TYPE: XR chest 1V portable DATE OF EXAM: 08/15/2020 HISTORY: Shortness of breath. COMPARISON: 08/14/2020 TECHNIQUE: Single view of the chest is submitted. FINDINGS: Demonstrated are scattered senescent parenchymal change. Continued cardiomegaly with small effusions and pulmonary venous congestion and scattered infiltrates . Hilar and mediastinal structures are within normal limits. Degenerative changes are seen of the dorsal spine. IMPRESSION: 1. Continued cardiomegaly with small effusions and pulmonary venous congestion and scattered infiltr ates.
[2020-08-15] MEDS ORDERED: FUROSEMIDE 10 MG/ML 4 ML VIAL IV STA ×2 (08:10→08:52)
[2020-08-15 08:18] LABS: HCT 22.5 % (34.0-46.0); HGB 7.4 gm/dL (11.4-16.0); MCH 29.9 pg (25.0-35.0); MCHC 32.9 g/dL (31.0-37.0); Mean Platelet Volume 7.5; Platelet Count 238 k/uL (150-450); RBC 2.47 m/uL (3.80-5.40)
[2020-08-15 08:36] LABS: ALT 26 U/L (4-34); AST 29 U/L (14-36); African American GFR (CKD) >90 (>60 ml/min/1.73 sqM); Albumin 3.3 g/dL (3.5-5.0); Alkaline Phosphatase 72 U/L (38-126); Anion Gap 8 mmol/L; Blood Urea Nitrogen 16 mg/dL (7-17); Calcium 8.9 mg/dL (8.4-10.2); Carbon Dioxide 27 mmol/L (22-30); Chloride 101 mmol/L (98-107); Glucose 115 mg/dL (74-99); Non-African American GFR(CKD) 89 (>60 ml/min/1.73 sqM); Potassium 3.5 mmol/L (3.5-5.1); Sodium 136 mmol/L (137-145); Total Bilirubin 1.3 mg/dL (0.2-1.3); Total Protein 5.6 g/dL (6.3-8.2)
[2020-08-15] MEDS: METOPROLOL TARTRATE 50 MG TAB PO SCH ×2 (09:03→20:10)
[2020-08-15] MEDS: ATORVASTATIN 40 MG TAB PO SCH (09:03)
[2020-08-15] MEDS: CLOPIDOGREL 75 MG TAB PO SCH (09:03)
[2020-08-15] MEDS: ASPIRIN 325 MG TAB PO SCH (09:03)
[2020-08-15] MEDS: HEPARIN SODIUM,PORCINE 5,000 UNIT/ML 1 ML VIAL SQ SCH ×3 (09:13→22:59)
[2020-08-15] MEDS: POTASSIUM CHLORIDE ER 20 MEQ TAB.ER PO SCH ×2 (09:13→12:06)
[2020-08-15] MEDS: BENZOCAINE/MENTHOL LOZENG 1 EACH LOZENGE MUCOUS MEM PRN (09:15)
[2020-08-15] MEDS: guaiFENesin-DM 600/30MG 1 EACH TAB.ER.12H PO SCH ×2 (09:21→20:10)
[2020-08-15] MEDS: NYSTATIN 100,000 UNIT/ML SUSP 500,000 UNIT/5 ML CUP PO SCH ×4 (09:21→22:59)
--- NOTE | 2020-08-15 09:45 | P.PN ---
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 Past medical history significant for pulmonary fibrosis, asthma, hypertension, hyperlipidemia, previous tobacco dependence with preoperative FEV1 107% of predicted, obesity, osteoarthritis, cervical stenosis post anterior cervical decompression with discectomy and fusion, TIA in childhood, and family history of premature coronary artery disease. POD #5 double vessel coronary artery bypass grafting using the left internal mammary artery to the left anterior descending artery, reverse saphenous vein graft from the aorta to the first obtuse marginal artery, exclusion of the left atrial appendage using a 35 mm AtriClip, endoscopic harvesting of the left greater saphenous vein from the groin to just below the knee level, intraoperative graft flow measurements using the Shyp system, intraoperative transesophageal echocardiogram and epi-aortic scanning. Postoperative acute blood loss anemia, expected given hemodilution and cardiopulmonary bypass pump. Postoperative hypotension requiring vasopressor support, expected vasoplegia due to preoperative ARB use. The patient was seen in follow-up today 08/15/2020 at her bedside on the cardiac stepdown unit. Currently she is sitting up to the bedside chair, is awake, alert and oriented 3. Denies any complaints of shortness of breath although she remains complaining of having a sore mouth. Oxygen saturation are 95% on room air and she is achieving 750-1000 mL on her incentive spirometry with encouragement. Remote telemetry showing normal sinus rhythm heart rate 94 BPM. She remains hemodynamically stable and is currently on no inotropic or pressor support. She is also complaining of a loose nonproductive cough. She reports she is ambulating in the hallway with minimal assistance from nursing and rehab staff and feels like it is becoming easier each time she ambulates. The patient did receive a first postoperative shower yesterday. Due to some elevated postvoid residuals of approximately 300 mL a consult was placed to urology which continues to be monitored. Objective - Vital Signs Vital signs: Vital Signs Temp 98.5 F 08/15/20 03:12 Pulse 90 08/15/20 07:49 Resp 19 08/15/20 03:12 BP 134/63 08/15/20 03:12 Pulse Ox 95 08/15/20 03:12 Intake & Output 08/14/20 08/15/20 08/15/20 18:59 06:59 18:59 Intake Total 0 Output Total 1572 300 Balance -1572 -300 Weight 89.9 kg Intake: IV 0 Sodium Chloride 0.9% 1, 0 000 ml @ 20 mls/hr IV . Q24H [facility] Rx#:[id number] Output: Urine 1225 300 Post Void Residual 347 Other: Voiding Method Bedside Commode Bedside Commode # Voids 1 # Bowel Movements 1 ABP, PAP, CO, CI - Last Documented Arterial Blood Pressure 95/50 Pulmonary Artery Pressure 37/16 Cardiac Output 6 Cardiac Index 3.4 - Constitutional General appearance: Present: cooperative, morbidly obese, no acute distress - EENT Eyes: Present: normal appearance. Absent: scleral icterus ENT: Present: hearing grossly normal - Neck Details: Neck is supple, no JVD. - Respiratory Details: Lung sounds with few scattered expiratory wheezes and crackles to her bilateral bases. Respirations are symmetrical and nonlabored. Oxygen saturation are 95% on room air. Achieving 750-1000 mL on her incentive spirometry. - Cardiovascular Details: Regular rhythm and rate. S1 and S2 present, negative for S3, gallop or murmur. Sternum is stable. Remote telemetry showing normal sinus rhythm heart rate 94 B PM. Heart hugger is in place and she is demonstrating appropriate use. Knee- high ANGEL hose and sequential compression devices in place to bilateral lower extremities. Atrial epicardial pacemaker wires remaining in place and grounded. - Gastrointestinal Gastrointestinal Comment(s): Abdomen is soft, nontender and nondistended. Active bowel sounds present in all 4 abdominal quadrants. No guarding or rigidity. No organomegaly appreciated. Tolerating oral intake. Bowel movement yesterday 08/14/2020 - Genitourinary Genitourinary Comment(s): Continues to void. Postvoid residual of 150 mL this morning. - Integumentary Integumentary Comment(s): Skin is warm and dry. No clubbing or cyanosis is present. Midline sternal incision is clean, dry and approximated. No drainage redness is present. Left lower extremities VH site is clean, dry and approximated. No drainage redness is present. - Neurologic Neurologic: Present: CNII-XII intact - Musculoskeletal Musculoskeletal: Present: gait normal, generalized weakness, strength equal bilaterally - Psychiatric Psychiatric: Present: A&O x's 3, appropriate affect, intact judgment & insight - Allied health notes Allied health notes reviewed: nursing - Labs CBC & Chem 7: 08/15/20 07:28 08/15/20 07:28 Labs: Abnormal Lab Results - Last 24 Hours (Table) 08/14/20 08/14/20 08/14/20 Range/Units 11:40 15:48 16:58 RBC (3.80-5.40) m/uL Hgb (11.4-16.0) gm/dL Hct (34.0-46.0) % Sodium (137-145) mmol/L Glucose (74-99) mg/dL POC Glucose (mg/dL) 116 H 129 H 116 H (75-99) mg/dL Total Protein (6.3-8.2) g/dL Albumin (3.5-5.0) g/dL 08/14/20 08/14/20 08/15/20 Range/Units 20:33 23:49 05:21 RBC (3.80-5.40) m/uL Hgb (11.4-16.0) gm/dL Hct (34.0-46.0) % Sodium (137-145) mmol/L Glucose (74-99) mg/dL POC Glucose (mg/dL) 129 H 135 H 120 H (75-99) mg/dL Total Protein (6.3-8.2) g/dL Albumin (3.5-5.0) g/dL 08/15/20 08/15/20 08/15/20 Range/Units 05:59 07:28 07:28 RBC 2.47 L (3.80-5.40) m/uL Hgb 7.4 L (11.4-16.0) gm/dL Hct 22.5 L (34.0-46.0) % Sodium 136 L (137-145) mmol/L Glucose 115 H (74-99) mg/dL POC Glucose (mg/dL) 125 H (75-99) mg/dL Total Protein 5.6 L (6.3-8.2) g/dL Albumin 3.3 L (3.5-5.0) g/dL - Imaging and Cardiology Chest x-ray: report reviewed, image reviewed Assessment and Plan Assessment: 1. 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 Preoperative hyponatremia, sodium level 120 just prior to admission, resolved 3. History of pulmonary fibrosis, asthma 4. Hypertension 5. Hyperlipidemia, treated, cholesterol 186, LDL 98 6. Previous tobacco dependence, preoperative FEV1 107% 7. Obesity 8. Osteoarthritis 9. Cervical stenosis post anterior cervical decompression, discectomy and fusion 10. TIA as a child around age 11 11. Family history of premature coronary artery disease with father diagnosed in his early 50s 12. Postoperative acute blood loss anemia, expected, status post transfusion 13. Postoperative hypotension, expected 14. Candidal stomatitis Plan: 1. Continue aspirin, statin, Plavix, and beta sisi. Will increase metoprolol tartrate as tolerated.. 2. Discontinue Midodrine. 3. Encourage incentive spirometry is 10 times every hour while awake. Bronchodilators per pulmonology/critical care management. 4. Increase activity, ambulate as tolerated. PT/OT/cardiac rehab following. 5. Will monitor daily labs and chest x-rays. Electrolyte replacement per protocol. No further transfusion at this point. Will give 40 mg IV push Lasix 1 today. 6. GI/DVT prophylaxis 7. Insulin management per primary care service. Patient is not diabetic, hemoglobin A1c 5.5%. 8. Continue Nystatin swish and swallow started for Candidal stomatitis. 9. Continue to bladder scan every 6 hours and when necessary, straight cath for greater than 300 mL residual. Urology consult noted and appreciated. 10. Strict accurate intake and output. Daily weights 11. Discharge planning is in place, anticipate discharge home with home health care versus inpatient rehab within the next [address] Robertson has been consulted. 12. More recommendations to follow based on patient's clinical course. Time with Patient: Greater than 30
--- NOTE | 2020-08-15 11:38 | P.PN ---
Subjective Progress Note Date: 08/15/20 This is a 75-year-old female patient of Dr. Avila and Dr. Garcia with a past medical history of pulmonary fibrosis, asthma, hypertension, hyperlipidemia, obesity, osteoarthritis, cervical stenosis status post anterior cervical decompression, discectomy and fusion. Patient recently underwent stress testing which demonstrated anterior wall ischemia with small reversible defect. It was recommended to undergo heart catheterization which was completed and showed calcified coronary artery, significant distal left main by IVUS, mild to moderate disease of the left anterior descending artery. Transthoracic echo was completed showed EF of 55%, mild mitral regurgitation, mild tricuspid regurgitation. Patient was then referred for coronary artery bypass grafting. During her outpatient preoperative workup patient was noted to have hyponatremia with sodium level of 120. She was advised to go to the emergency department to be admitted to correct her sodium level. Patient reports she's asymptomatic, she denies any chest pain, palpitations, shortness of breath, fever, chills, no nausea, vomiting, diarrhea, or diarrhea. Consult placed for nephrology, she was started on 0.9 normal saline at 75 mL per hour. 08/07: Patient has been afebrile, heart rate 62, blood pressure 132/70, pulse ox 90% on room air. Sodium today is at 125. Potassium 4.0, chloride 90, CO2 20, BUN 20 creatinine 0.7. Patient is followed by nephrology and received sodium chloride tablet 2 g once this morning. Repeat sodium level at 2 PM, cortisol level ordered and TSH. Patient states that she is feeling well today. She denies any lightheadedness or dizziness. No chest pain or shortness of breath. She is scheduled for open heart surgery on Monday and anticipates that she will be here through the weekend. 08/08 sodium is much better, instructions were for discontinuation of IV fluids, currently running at 75 mL an hour, sodium 135, seen by nephrology, patient is scheduled to have open heart surgery on Monday, and the would consult Dr. Sethi, and Dr. Harrison, who would assist with preop CABG management, patient denies any nausea vomiting, blood pressure is significantly much better today, no chest pain no difficulty breathing, but pressure fluctuates between 99 systolic to 161 systolic, heart rate stable at 60-69, creatinine at 0.08 urinalysis negative, patient continues to be off hydrochlorothiazide 08/09 patient feels well today, no new concerns of chest pain shortness of breath no lightheadedness no dizziness, no GI losses no pleurisy, no dysuria. Patient's serum sodium is 138, electrolytes are normal creatinine is 0.8, expected to proceed with CABG as scheduled for August 10Monday morning. board, comes felt with cardiology to assist with postcardiac management in the morning. She will be made nothing by mouth post midnight tonight 08/10: Patient is gone this morning for CABG. Patient was not seen and evaluated at this time. 08/11: Patient is status post CABG, left internal mammary artery to the left anterior descending artery, reverse saphenous vein graft from the aorta to the f irst obtuse marginal artery, postop day #1. Patient was successfully extubated. Patient is seen today in the intensive care unit. Patient complains of generalized fatigue and weakness. Temperature max 100.6, heart rate in the 70s and 80s, respiratory rate 25, blood pressure 91/39, pulse ox 93% on 2 L nasal cannula. WBC 7.9, hemoglobin 7.2, platelet count 109. INR is 1.2. Sodium 133 otherwise elect lites are normal, creatinine 0.63. Total bilirubin 0.6. AST 37, lymphocytes 26. Repeat chest x-ray reveals difficult to exclude component of volume overload, interstitial edema, there may be basilar atelectasis versus edema, associated effusion. Patient is reaching 500 on incentive spirometry. 08/12: Patient remains in the intensive care unit and looks more comfortable today. Patient is resting in a chair. Her pulse ox is running 88-90% on 2 L but respiratory status appears stable. She's been afebrile, heart rate in the 80s, blood pressure 111/47. Blood sugars have been running 107-133. Insulin drip will be discontinued and patient placed on NovoLog scale every 4 hours until nighttime and transition to before meals at bedtime. Norepinephrine to be weaned. IV lasix was ordered this morning. WBC 11.7, hemoglobin 7.3, platelet count 112. Sodium 131, creatinine 0.82. Mediastinal chest tube to be removed today and Yu to be removed today. 08/13: Patient remains in the intensive care unit. She appears to be comfortable. She is found sitting up in chair. No shortness of breath. She has occasional cough. She is working on incentive spirometry. Patient has been afebrile, heart rate 100, blood pressure 101/53, pulse ox 97% on 2 L nasal cannula. security monitor sinus rhythm. WBC 7.4, hemoglobin 7, platelet count 107. Sodium 130, potassium 4.3, chloride 103, CO2 25, BUN 21 and creatinine 0.86. Blood sugar 104. Capillary blood glucose running between 104 and 134. Repeat chest x-ray reveals no evident complications status post chest tube removal. Persistent atelectatic changes. Cardiac megaly. Postop changes. Patient received 1 dose of IV Lasix this morning. Yu catheter was removed yesterday and patient has been straight cathed this morning. Right Cordis to be removed. 08/14: Patient is seen today in the intensive care unit. She states she is not doing well because she has thrush is having difficulty eating. She was started on nystatin swish and swallow this morning. He has been afebrile, heart rate 96, blood pressure 133/68, pulse ox 91% on room air. security monitor has been in sinus rhythm. She is reaching 750 on incentive spirometry. WBC 8, hemoglobin 7, creatinine 0.72. Blood sugars running between 108 130. Patient is scheduled to be transferred out of the intensive care unit today. Discussed discharge planning with the patient and inpatient rehab may be a good option for her. Cardiothoracic team to address. 08/15/: She has seen today on . She states that she is having some difficulty breathing with cough and congestion. Remained afebrile, heart rate 102, respirations 18 blood pressure 151/67. Pulse ox a 95% on room. WBCs 10.0, hemoglobin 7.4, potassium 3.5, BUN 18, creatinine 0.63. Blood sugars between 108 and 135. REVIEW OF SYSTEMS Constitutional: Reports fatigue, Denies chills, Denies fever, reports mild fatigue. Ears, nose, mouth and throat: Denies headache, Denies nasal congestion, Denies nasal discharge, Denies sinus pain, Denies sinus pressure, reports sore throat Cardiovascular: Reports chest discomfort, Denies edema, Denies irregular heart beat, Denies leg edema, Denies orthopnea, Denies palpitations, Denies shortness of breath, Denies syncope Respiratory: Denies congestion, Denies cough, Denies pain, Denies respiratory infections, Denies wheezing Gastrointestinal: Denies abdominal pain, Denies constipation, Denies diarrhea, Denies dyspepsia, Denies heartburn, Denies hematemesis, Denies loss of appetite, Denies nausea, Denies vomiting Genitourinary: Denies dysuria, Denies hematuria, Denies urgency Musculoskeletal: Denies arm numbness/tingling, Denies atrophy, Denies fractures, Denies frequent falls, Denies gait dysfunction, Denies myalgias, Denies neck pain, Denies neck stiffness Integumentary: Denies dryness, Denies lesions, Denies pruritus, Denies sores, Denies wounds Neurological: Denies confusion, Denies gait dysfunction, Denies headaches, De nies paralysis, Denies seizures, Denies spasticity, Denies syncope, Denies vertigo Psychiatric: Denies anxiety, Denies confusion, Denies irritability, Denies mood swings, Denies paranoia, Denies suicidal ideation Endocrine: Denies excessive sweating, Denies fatigue, Denies high blood sugars, Denies palpitations, Denies polyphagia, Denies polyuria, Denies thyroid mass PHYSICAL EXAMINATION Gen: This is a 75-year-old female. She is sitting in recliner and appears to be comfortable and in no acute distress. HEENT: Head is atraumatic, normocephalic. Pupils equal, round. Sclerae is anicteric. Right-sided Cordis in place. NECK: Supple. No JVD. No lymphadenopathy. No thyromegaly. LUNGS: Diminished bilaterally. No intercostal retractions. HEART: Regular rate and rhythm. No murmur. left pleural chest tube. ABDOMEN: Soft. Bowel sounds are present. No masses. No tenderness. EXTREMITIES: No pedal edema. No calf tenderness. Dorsalis pedis palpable bilaterally. NEUROLOGICAL: Patient is awake, alert and oriented x3. Cranial nerves 2 through 12 are grossly intact. ASSESSMENT AND PLAN 1. Hyponatremia, resolved. Nephrology is following. 2. Coronary artery disease with left main disease status post CABG. Continue current management per cardiothoracic team. 3. History of pulmonary fibrosis. Continue duo nebs and albuterol 4. Asthma, mild intermittent. Continue ipratropium albuterol nebulizers 5. Hyperlipidemia. Continue statin daily 6. Hypertension. Continue Lopressor increased to 25 mg twice daily. 7. GI prophylaxis. Pantoprazole 8. DVT prophylaxis: SCDs 9. Blood sugar management in a nondiabetic. insulin scale ACHS. 10. Pulmonary venous congestion. Repeat chest x-ray, 40 mg Lasix IV. Continue to monitor hemoglobin. DISCHARGE PLAN Home with homecare most likely Impression and plan of care have been directed as dictated by the signing physician. Quynh Delacruz nurse practitioner acting as scribe for signing physician. Objective - Vital Signs Vital signs: Vital Signs Temp 98.4 F 08/15/20 08:00 Pulse 100 08/15/20 11:31 Resp 18 08/15/20 08:00 BP 151/67 08/15/20 08:00 Pulse Ox 95 08/15/20 08:00 Intake & Output 08/14/20 08/15/20 08/15/20 18:59 06:59 18:59 Intake Total 0 240 Output Total 1572 300 Balance -1572 -300 240 Weight 89.9 kg Intake: IV 0 Sodium Chloride 0.9% 1, 0 000 ml @ 20 mls/hr IV . Q24H [facility] Rx#:[id number] Oral 240 Output: Urine 1225 300 Post Void Residual 347 Other: Voiding Method Bedside Commode Bedside Commode Toilet # Voids 1 2 # Bowel Movements 1 1 ABP, PAP, CO, CI - Last Documented Arterial Blood Pressure 95/50 Pulmonary Artery Pressure 37/16 Cardiac Output 6 Cardiac Index 3.4 - Labs CBC & Chem 7: 08/15/20 07:28 08/15/20 07:28 Labs: Abnormal Lab Results - Last 24 Hours (Table) 08/14/20 08/14/20 08/14/20 Range/Units 11:40 15:48 16:58 RBC (3.80-5.40) m/uL Hgb (11.4-16.0) gm/dL Hct (34.0-46.0) % Sodium (137-145) mmol/L Glucose (74-99) mg/dL POC Glucose (mg/dL) 116 H 129 H 116 H (75-99) mg/dL Total Protein (6.3-8.2) g/dL Albumin (3.5-5.0) g/dL 08/14/20 08/14/20 08/15/20 Range/Units 20:33 23:49 05:21 RBC (3.80-5.40) m/uL Hgb (11.4-16.0) gm/dL Hct (34.0-46.0) % Sodium (137-145) mmol/L Glucose (74-99) mg/dL POC Glucose (mg/dL) 129 H 135 H 120 H (75-99) mg/dL Total Protein (6.3-8.2) g/dL Albumin (3.5-5.0) g/dL 08/15/20 08/15/20 08/15/20 Range/Units 05:59 07:28 07:28 RBC 2.47 L (3.80-5.40) m/uL Hgb 7.4 L (11.4-16.0) gm/dL Hct 22.5 L (34.0-46.0) % Sodium 136 L (137-145) mmol/L Glucose 115 H (74-99) mg/dL POC Glucose (mg/dL) 125 H (75-99) mg/dL Total Protein 5.6 L (6.3-8.2) g/dL Albumin 3.3 L (3.5-5.0) g/dL
[2020-08-15 12:08] LABS: Glucose,Whole Blood 121 mg/dL (75-99)
[2020-08-15] MEDS: FERROUS SULFATE 325 MG TAB PO SCH (12:46)
[2020-08-15] MEDS: ASCORBIC ACID 500 MG TAB PO SCH (12:46)
[2020-08-15] MEDS: LOSARTAN 25 MG TAB PO SCH (12:46)
--- NOTE | 2020-08-15 12:47 | P.PN ---
Subjective Progress Note Date: 08/15/20 75-year-old female who was admitted to the hospital on August 06. She came in because her sodium was low. I saw the patient in the office for preop clearance in anticipation of bypass grafting. She actually had the surgery today. Currently, she is on the volume assist control mode, rate of 12, tidal volume 350, FiO2 70%, and a PEEP of 5. Plendil same settings but 100%, the pO2 was 243, the pCO2 is 44, and a pH of 7.34. She is currently on saline at 50 mL an hour, nitroglycerin at 5 mcg/m, propofol has been turned off, and she is on norepinephrine at 5 mcg/m. She apparently had a two-vessel bypass grafting. She has a history of hyperlipidemia, hypertension, CAD, skin cancer, arthritis, and possible TIA. In addition, I saw her in the distant past for some interstitial lung disease/pulmonary fibrosis. The patient did have a complete pulmonary function test in my office. The patient's lung function including the FEV1, MVV, and RV/TLC ratio were all excellent. Based on her numbers, I thought she was at low increased operative risk. This was passed onto the cardiothoracic team. The patient surgery included a bypass graft using the left internal mammary artery to the left anterior descending coronary artery, and a reverse saphenous vein graft from aorta to the first obtuse marginal artery. She also had exclusion of the left atrial appendage using a 35 mm AtriClip, endoscopic harvesting of the left greater saphenous vein, intraoperative graft flow measurements using the Medi-Stim system and intraoperative transesophageal echocardiogram. Progress note dated 08/11/2020. 75-year-old female postop day #2, status post two-vessel bypass grafting. Currently, the patient is doing relatively well. She is on 2 L nasal cannula. She is getting lactated Ringer's at 50 mL an hour, norepinephrine at 8.2 mcg/m, insulin at 0.5 units an hour. She was extubated about 4-1/2 hours after leaving the operating room. She had a pretty uneventful night according to her nurse. Her chest x-rays reviewed. This shows typical postoperative changes. I did a preop evaluation on her, and her lung function is mentioned in my consultation were excellent. She does have a history of underlying mild pulmonary fibrosis/interstitial lung disease. Currently, her white count is 7.9, hemog lobin 7.2, hematocrit 20.4, and platelet count 109,000. PT is 12.1, INR 1.2, PTT 41.1. Her last blood gases prior to extubation show a PaO2 of 114, PaCO2 of 43, and a pH of 7.37. Sodium is 133, potassium 4.3, chlorides 104, CO2 24, anion gap 5, BUN 13, and creatinine 0.63. Albumin is 2.9. Calcium is 7.7. Ionized calcium is normal. On 08/12/2020 patient seen in follow-up in the intensive care unit, she is awake and alert, she is in no acute distress, today is postoperative day 3 status post two-vessel bypass grafting. She is currently on 2 L of oxygen pulse ox of 90%, vital signs have been stable. Patient is working on incentive spirometer, today's chest x-ray has been reviewed showing a component of interstitial edema, basilar atelectasis versus edema, relatively stable exam. Patient remains on vasopressor support in the form of the fat currently running at 13 mics per minute, and she did require volume in the form of 5% albumin ordered by cardiothoracic surgery. She received a total of thousand mL of 5% albumin yesterday, with additional 250 of albumin this morning. Patient is significantly positive terms of her weight, +14 kg since admission. Patient still has mediastinal chest tube in place with a total of 370 of thin serosanguineous fluid in the last 24 hours, and left lateral chest tube put out 810 of fluid. Patient's 0.9 normal saline is running at 20 ML per hour. The patient is seen today 08/13/2020 in follow-up in the intensive care unit. Postoperative day #4. She is awake and alert in no acute distress. Currently sitting up in a chair at the bedside. She is maintaining O2 saturations in the 90s on 2 L/m per nasal cannula. Only pulling approximately 500 ML's on the incentive spirometer. Left pleural chest tube remains in place. Chest x-ray reveals evidence of basilar atelectasis and some fluid volume overload. Hemodynamically stable and currently off pressors. Status post 1 unit of packed red blood cells this admission. Current hemoglobin 7.0. Platelet count 107. 7.4. Sodium 130. Potassium 4.3. Creatinine 0.86. Magnesium 2.4. Albumin 2.7. The patient is seen today 08/15/2020 in follow-up on the elective care unit. She is currently sitting up in a chair at the bedside. Awake and alert in no acute distress. This is postoperative day #6. Denies any worsening shortness of breath, cough or congestion. She is maintaining O2 saturations in the 90s on room air. She's working well with the incentive spirometer. She's been up with assistance. Chest x-ray revealed cardiomegaly with small effusions and pulmonary venous congestion with scattered infiltrates. White count 10.0. Hemoglobin 7.4. Sodium 136. Potassium 3.5. Creatinine 0.63. She remains on bronchodilators. Heparin for DVT prophylaxis. Objective - Vital Signs Vital signs: Vital Signs Temp 98.4 F 08/15/20 08:00 Pulse 100 08/15/20 11:31 Resp 18 08/15/20 08:00 BP 151/67 08/15/20 08:00 Pulse Ox 95 08/15/20 08:00 Intake & Output 08/14/20 08/15/20 08/15/20 18:59 06:59 18:59 Intake Total 0 240 Output Total 1572 300 Balance -1572 -300 240 Weight 89.9 kg Intake: IV 0 Sodium Chloride 0.9% 1, 0 000 ml @ 20 mls/hr IV . Q24H [facility] Rx#:[id number] Oral 240 Output: Urine 1225 300 Post Void Residual 347 Other: Voiding Method Bedside Commode Bedside Commode Toilet # Voids 1 2 # Bowel Movements 1 1 ABP, PAP, CO, CI - Last Documented Arterial Blood Pressure 95/50 Pulmonary Artery Pressure 37/16 Cardiac Output 6 Cardiac Index 3.4 - Exam GENERAL EXAM: Alert, 75-year-old female patient, up in a chair at the bedside, on room air, comfortable in no apparent distress. HEAD: Normocephalic. EYES: Normal reaction of pupils, equal size. NOSE: Clear with pink turbinates. THROAT: No erythema or exudates. NECK: No masses, no JVD. CHEST: Sternal dressing dry and intact. Heart hugger in place. Left chest tube in place.. LUNGS: Equal air entry with bibasilar crackles. CVS: S1 and S2 normal with no audible murmur, regular rhythm. ABDOMEN: No hepatosplenomegaly, normal bowel sounds, no guarding or rigidity. SPINE: No scoliosis or deformity SKIN: No rashes CENTRAL NERVOUS SYSTEM: No focal deficits, tone is normal in all 4 extremities. EXTREMITIES: There is trace peripheral edema. No clubbing, no cyanosis. P eripheral pulses are intact. - Labs CBC & Chem 7: 08/15/20 07:28 08/15/20 07:28 Labs: Abnormal Lab Results - Last 24 Hours (Table) 08/14/20 08/14/20 08/14/20 Range/Units 15:48 16:58 20:33 RBC (3.80-5.40) m/uL Hgb (11.4-16.0) gm/dL Hct (34.0-46.0) % Sodium (137-145) mmol/L Glucose (74-99) mg/dL POC Glucose (mg/dL) 129 H 116 H 129 H (75-99) mg/dL Total Protein (6.3-8.2) g/dL Albumin (3.5-5.0) g/dL 08/14/20 08/15/20 08/15/20 Range/Units 23:49 05:21 05:59 RBC (3.80-5.40) m/uL Hgb (11.4-16.0) gm/dL Hct (34.0-46.0) % Sodium (137-145) mmol/L Glucose (74-99) mg/dL POC Glucose (mg/dL) 135 H 120 H 125 H (75-99) mg/dL Total Protein (6.3-8.2) g/dL Albumin (3.5-5.0) g/dL 08/15/20 08/15/20 08/15/20 Range/Units 07:28 07:28 12:02 RBC 2.47 L (3.80-5.40) m/uL Hgb 7.4 L (11.4-16.0) gm/dL Hct 22.5 L (34.0-46.0) % Sodium 136 L (137-145) mmol/L Glucose 115 H (74-99) mg/dL POC Glucose (mg/dL) 121 H (75-99) mg/dL Total Protein 5.6 L (6.3-8.2) g/dL Albumin 3.3 L (3.5-5.0) g/dL Assessment and Plan Assessment: 1 Coronary artery disease including left main disease, status post coronary artery revascularization on 08/10/2020. 2 Hyponatremia suspect secondary to hypovolemia and thiazide diuretics. Corrected, current sodium 136 3 History of mild pulmonary fibrosis dating back to 2017. FEV1 value 101% of predicted. 4 Obesity 5 Hypertension 6 Hyperlipidemia 7 Arthritis 8 Former smoker Plan: The patient was seen and evaluated by Dr. Guadalupe Chest x-ray and labs reviewed Doing better, on room air Again educated regarding the increase use of the incentive spirometer Increase her activity as tolerated We will continue to follow and make further recommendations based on her clinical status I, the cosigning physician, performed a history & physical examination of the p atient. Lungs sounds with coarse crackles in the bilateral posterior bases. Maintaining good O2 saturations in the 90s on room air. I discussed the assessment and plan of care with my nurse practitioner, Aparna Colunga. I attest to the above note as dictated by her.
[2020-08-15] MEDS: POTASSIUM CHLORIDE 10 MEQ in WATER FOR INJECTION 1 100ML.BAG IVPB SCH ×4 (12:49→21:21)
--- NOTE | 2020-08-15 13:43 | P.PN ---
Subjective Progress Note Date: 08/15/20 The patient was interviewed and examined sitting comfortably in the recliner chair. She states she has been doing well and has been comfortable breathing on room air. She states she has been up walking to the restroom with minimal assistance. She does have chest pain with coughing. No chest heaviness, orthopnea, palpitations, dizziness, or lightheadedness. GENERAL: Well-appearing, well-nourished and in no acute distress. NECK: Supple without JVD or thyromegaly. LUNGS: Breath sounds clear to auscultation bilaterally. Respiration equal and unlabored. No rales or rhonchi. Bronchial inspiratory wheeze. HEART: Regular rate and rhythm without murmurs, rubs or gallops. S1 and S2 h eard. Sternal however and place. EXTREMITIES: Normal range of motion, no edema. No clubbing or cyanosis. Peripheral pulses intact and strong. SKIN: Surgical dressings clean, dry, and intact. VITALS: 151/67, respiratory rate 18, pulse rate 102, temperature 98.4F, SpO2 95% on room air TELEMETRY: Sinus rhythm LABS: WBC 10.0, hemoglobin 7.4, hematocrit 22.5, platelet 238, sodium 136, potassium 3 .5, BUN 16, creatinine 0.63, AST 29, ALT 26, IMPRESSION: #1 coronary artery disease, status post coronary artery bypass grafting #2 pulmonary fibrosis #3 hypertension #4 dyslipidemia #5 blood loss anemia, hemoglobin 7.4 PLAN: Continue current medication regimen Encourage pulmonary toilet and ambulation No additional recommendations at this time Objective - Vital Signs Vital signs: Vital Signs Temp 98.4 F 08/15/20 08:00 Pulse 100 08/15/20 11:31 Resp 18 08/15/20 08:00 BP 151/67 08/15/20 08:00 Pulse Ox 95 08/15/20 08:00 Intake & Output 08/14/20 08/15/20 08/15/20 18:59 06:59 18:59 Intake Total 0 240 Output Total 0155 716 0676 Balance -1572 -300 -960 Weight 89.9 kg Intake: IV 0 Sodium Chloride 0.9% 1, 0 000 ml @ 20 mls/hr IV . Q24H [facility] Rx#:[id number] Oral 240 Output: Urine 8021 410 6826 Post Void Residual 347 Other: Voiding Method Bedside Commode Bedside Commode Toilet # Voids 1 # Bowel Movements 1 1 ABP, PAP, CO, CI - Last Documented Arterial Blood Pressure 95/50 Pulmonary Artery Pressure 37/16 Cardiac Output 6 Cardiac Index 3.4 - Labs CBC & Chem 7: 08/15/20 07:28 08/15/20 07:28 Labs: Abnormal Lab Results - Last 24 Hours (Table) 08/14/20 08/14/20 08/14/20 Range/Units 15:48 16:58 20:33 RBC (3.80-5.40) m/uL Hgb (11.4-16.0) gm/dL Hct (34.0-46.0) % Sodium (137-145) mmol/L Glucose (74-99) mg/dL POC Glucose (mg/dL) 129 H 116 H 129 H (75-99) mg/dL Total Protein (6.3-8.2) g/dL Albumin (3.5-5.0) g/dL 08/14/20 08/15/20 08/15/20 Range/Units 23:49 05:21 05:59 RBC (3.80-5.40) m/uL Hgb (11.4-16.0) gm/dL Hct (34.0-46.0) % Sodium (137-145) mmol/L Glucose (74-99) mg/dL POC Glucose (mg/dL) 135 H 120 H 125 H (75-99) mg/dL Total Protein (6.3-8.2) g/dL Albumin (3.5-5.0) g/dL 08/15/20 08/15/20 08/15/20 Range/Units 07:28 07:28 12:02 RBC 2.47 L (3.80-5.40) m/uL Hgb 7.4 L (11.4-16.0) gm/dL Hct 22.5 L (34.0-46.0) % Sodium 136 L (137-145) mmol/L Glucose 115 H (74-99) mg/dL POC Glucose (mg/dL) 121 H (75-99) mg/dL Total Protein 5.6 L (6.3-8.2) g/dL Albumin 3.3 L (3.5-5.0) g/dL
[2020-08-15 17:24] LABS: Glucose,Whole Blood 129 mg/dL (75-99)
[2020-08-15] MEDS: SENNOSIDES-DOCUSATE SODIUM 1 EACH TAB PO SCH (20:10)
[2020-08-15 21:10] LABS: Glucose,Whole Blood 122 mg/dL (75-99)
[2020-08-16] MEDS: INSULIN ASPART (NovoLOG) 100 UNIT/ML VIAL SQ SCH ×6 (02:34→20:41)
[2020-08-16] MEDS: ACETAMINOPHEN TAB 325 MG TAB PO PRN ×4 (03:20→20:48)
[2020-08-16 04:41] LABS: Glucose,Whole Blood 114 mg/dL (75-99)
[2020-08-16] MEDS: PANTOPRAZOLE 40 MG TABLET PO SCH (06:08)
[2020-08-16 07:17] LABS: HCT 22.8 % (34.0-46.0); HGB 7.6 gm/dL (11.4-16.0); Hypochromasia Slight; MCH 30.5 pg (25.0-35.0); MCHC 33.3 g/dL (31.0-37.0); MCV 91.6 fL (80.0-100.0); Platelet Count 256 k/uL (150-450); Poikilocytosis Slight; RBC 2.48 m/uL (3.80-5.40); RDW 14.9 % (11.5-15.5); WBC 11.3 k/uL (3.8-10.6)
[2020-08-16 07:30] LABS: African American GFR (CKD) >90 (>60 ml/min/1.73 sqM); Anion Gap 9 mmol/L; Blood Urea Nitrogen 15 mg/dL (7-17); Calcium 8.7 mg/dL (8.4-10.2); Carbon Dioxide 26 mmol/L (22-30); Chloride 99 mmol/L (98-107); Glucose 106 mg/dL (74-99); Magnesium 1.8 mg/dL (1.6-2.3); Non-African American GFR(CKD) 88 (>60 ml/min/1.73 sqM); Potassium 3.5 mmol/L (3.5-5.1); Sodium 134 mmol/L (137-145)
--- NOTE | 2020-08-16 07:37 | XR ---
EXAMINATION TYPE: XR chest 1V portable DATE OF EXAM: 08/16/2020 HISTORY: Shortness of breath. COMPARISON: August 15, 2020 TECHNIQUE: Single view of the chest is submitted. FINDINGS: Demonstrated are scattered senescent parenchymal change. There is improving pulmonary venous congestion. Continued cardiomegaly small effusions and scattered infiltrates. The heart is stable. Hilar and mediastinal structures are within normal limits. Degenerative changes are seen of the dorsal spine. IMPRESSION: 1. There is improving pulmonary venous congestion. Continued cardiomegaly small effusions and scatte red infiltrates.
[2020-08-16] MEDS: IPRATROPIUM-ALBUTEROL 3 ML NEB INHALATION SCH ×4 (08:21→20:09)
[2020-08-16] MEDS ORDERED: FUROSEMIDE 10 MG/ML 4 ML VIAL IV ONE (09:00)
[2020-08-16] MEDS: NYSTATIN 100,000 UNIT/ML SUSP 500,000 UNIT/5 ML CUP PO SCH ×4 (09:03→20:47)
[2020-08-16] MEDS: HEPARIN SODIUM,PORCINE 5,000 UNIT/ML 1 ML VIAL SQ SCH ×3 (09:03→23:09)
[2020-08-16] MEDS: guaiFENesin-DM 600/30MG 1 EACH TAB.ER.12H PO SCH ×2 (09:04→20:47)
[2020-08-16] MEDS: ATORVASTATIN 40 MG TAB PO SCH (09:04)
[2020-08-16] MEDS: ASPIRIN 325 MG TAB PO SCH (09:04)
[2020-08-16] MEDS: CLOPIDOGREL 75 MG TAB PO SCH (09:04)
[2020-08-16] MEDS: MAGNESIUM SULFATE-D5W PMX 1 GM in DEXTROSE/WATER 1 100ML.BAG IVPB SCH ×2 (09:05→10:16)
[2020-08-16] MEDS: METOPROLOL TARTRATE 25 MG TAB PO SCH ×2 (09:17→20:51)
--- NOTE | 2020-08-16 09:34 | P.PN ---
Subjective Progress Note Date: 08/16/20 Principal diagnosis: Coronary artery disease with left main disease, preserved systolic function, preoperative hyponatremia warranting admission for correction. Past medical history significant for pulmonary fibrosis, asthma, hypertension, hyperlipidemia, previous tobacco dependence with preoperative FEV1 107% of predicted, obesity, osteoarthritis, cervical stenosis post anterior cervical decompression with discectomy and fusion, TIA in childhood, and family history of premature coronary artery disease. POD #6 double vessel coronary artery bypass grafting using the left internal mammary artery to the left anterior descending artery, reverse saphenous vein graft from the aorta to the first obtuse marginal artery, exclusion of the left atrial appendage using a 35 mm AtriClip, endoscopic harvesting of the left greater saphenous vein from the groin to just below the knee level, intraoperative graft flow measurements using the Fabrus system, intraoperative transesophageal echocardiogram and epi-aortic scanning. Postoperative acute blood loss anemia, expected given hemodilution and cardiopulmonary bypass pump. Postoperative hypotension requiring vasopressor support, expected vasoplegia due to preoperative ARB use. The patient was seen in follow-up today 08/16/2020 at her bedside on the cardiac stepdown unit. Currently she is sitting up to the bedside chair, is awake, alert and oriented 3. Denies any complaints of pain or shortness of breath this time, although she reports she does get somewhat short winded with activity. She continues to complain of a sore mouth and sore throat and she is receiving nystatin swish and swallow treatments. She has been afebrile the last 24 hours, her remote telemetry showing normal sinus rhythm heart rate 106 BPM. Oxygen saturations are 95% on room air and she is achieving 1000 mL on her incentive spirometry. Atrial epicardial pacemaker wires were intact and grounded. Postvoid residuals in the last 8 hours have been less than 200. She reports she ambulated in the cardiac stepdown unit hallway yesterday with minimal assistance from nursing staff and rehab staff. Objective - Vital Signs Vital signs: Vital Signs Temp 98.2 F 08/16/20 08:00 Pulse 96 08/16/20 08:31 Resp 18 08/16/20 08:00 BP 171/79 08/16/20 08:00 Pulse Ox 95 08/16/20 08:00 Intake & Output 08/15/20 08/16/20 08/16/20 18:59 06:59 18:59 Intake Total 480 360 Output Total 2100 200 Balance -1620 -200 360 Weight 89.9 kg 88.5 kg Intake: Oral 480 360 Output: Urine 1900 200 Post Void Residual 200 Other: Voiding Method Toilet Toilet # Voids 1 # Bowel Movements 1 1 ABP, PAP, CO, CI - Last Documented Arterial Blood Pressure 95/50 Pulmonary Artery Pressure 37/16 Cardiac Output 6 Cardiac Index 3.4 - Constitutional General appearance: Present: cooperative, no acute distress, obese - EENT Eyes: Present: normal appearance. Absent: scleral icterus ENT: Present: hearing grossly normal, thrush - Neck Details: Neck is supple, no JVD. - Respiratory Details: Lung sounds essentially clear to her bilateral upper lobes, few scattered expiratory wheezes, diminished bilateral bases. Respirations are symmetrical and nonlabored. Oxygen saturation is 95% on room air. Achieving 1000 mL on her incentive spirometry. - Cardiovascular Details: Regular rhythm and tachycardic rate. S1 and S2 present, negative for S3, gallop or murmur. Sternum is stable. Heart hugger is in place and she is demonstrating appropriate use. Remote telemetry showing sinus tachycardia heart rate 106 BPM. Atrial epicardial pacemaker wires in place and grounded. Knee- high ANGEL hose and sequential compression devices in place to bilateral lower extremities. - Gastrointestinal Gastrointestinal Comment(s): Abdomen is soft, nontender and nondistended. Active bowel sounds present all 4 abdominal quadrants. No guarding or rigidity. Tolerating oral intake. Bowel movement this a.m. - Genitourinary Genitourinary Comment(s): Continues to void. Postvoid residual this a.m. 200 mL. - Integumentary Integumentary Comment(s): Skin is warm and dry. No clubbing or cyanosis is present. Midline sternal incision is clean, dry and approximated. No drainage redness present. Left lower extremity EVH site is clean, dry and approximated. No drainage or redness is present. - Neurologic Neurologic: Present: CNII-XII intact. Absent: focal deficits - Musculoskeletal Musculoskeletal: Present: gait normal, generalized weakness, strength equal bilaterally - Psychiatric Psychiatric: Present: A&O x's 3, appropriate affect, intact judgment & insight - Allied health notes Allied health notes reviewed: nursing - Labs CBC & Chem 7: 08/16/20 07:02 02/07/21 07:02 Labs: Abnormal Lab Results - Last 24 Hours (Table) 08/15/20 08/15/20 08/15/20 Range/Units 12:02 17:05 20:53 WBC (3.8-10.6) k/uL RBC (3.80-5.40) m/uL Hgb (11.4-16.0) gm/dL Hct (34.0-46.0) % Sodium (137-145) mmol/L Glucose (74-99) mg/dL POC Glucose (mg/dL) 121 H 129 H 122 H (75-99) mg/dL 08/16/20 08/16/20 08/16/20 Range/Units 04:39 07:02 07:02 WBC 11.3 H (3.8-10.6) k/uL RBC 2.48 L (3.80-5.40) m/uL Hgb 7.6 L (11.4-16.0) gm/dL Hct 22.8 L (34.0-46.0) % Sodium 134 L (137-145) mmol/L Glucose 106 H (74-99) mg/dL POC Glucose (mg/dL) 114 H (75-99) mg/dL - Imaging and Cardiology Chest x-ray: report reviewed, image reviewed Assessment and Plan Assessment: 1. 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 Preoperative hyponatremia, sodium level 120 just prior to admission, resolved 3. History of pulmonary fibrosis, asthma 4. Hypertension 5. Hyperlipidemia, treated, cholesterol 186, LDL 98 6. Previous tobacco dependence, preoperative FEV1 107% 7. Obesity 8. Osteoarthritis 9. Cervical stenosis post anterior cervical decompression, discectomy and fusion 10. TIA as a child around age 11 11. Family history of premature coronary artery disease with father diagnosed in his early 50s 12. Postoperative acute blood loss anemia, expected, status post transfusion 13. Postoperative hypotension, expected 14. Candidal stomatitis Plan: 1. Continue aspirin, statin, Plavix, and beta sisi. Will increase metoprolol tartrate to 75 mg by mouth twice a day. 2. Atrial epicardial pacemaker wires removed without incident at 9 AM today. She'll be on bed rest for 1 hour post pacemaker wire removal. 3. Encourage incentive spirometry is 10 times every hour while awake. Bronchodilators per pulmonology/critical care management. 4. Increase activity, ambulate as tolerated. PT/OT/cardiac rehab following. 5. Will monitor daily labs and chest x-rays. Electrolyte replacement per protocol. No further transfusion at this point. 6. GI/DVT prophylaxis 7. Insulin management per primary care service. Patient is not diabetic, hemoglobin A1c 5.5%. 8. Nystatin swish and swallow discontinued by primary care service. Started on Diflucan 100 mg by mouth daily. 9. Continue to bladder scan every 6 hours and when necessary, straight cath for greater than 300 mL residual. Urology consult noted and appreciated. 10. Strict accurate intake and output. Daily weights. 11. Discharge planning is in place, anticipate discharge home with home health care versus inpatient rehab within the next 24-[address] Robertson has been consulted. 12. Lasix 40 mg IV 1 now. 13. More recommendations to follow based on patient's clinical course. Time with Patient: Greater than 30
[2020-08-16] MEDS: FLUCONAZOLE 100 MG TAB PO SCH (10:22)
--- NOTE | 2020-08-16 11:00 | P.PN ---
Subjective Progress Note Date: 08/16/20 This is a 75-year-old female patient of Dr. Avila and Dr. Garcia with a past medical history of pulmonary fibrosis, asthma, hypertension, hyperlipidemia, obesity, osteoarthritis, cervical stenosis status post anterior cervical decompression, discectomy and fusion. Patient recently underwent stress testing which demonstrated anterior wall ischemia with small reversible defect. It was recommended to undergo heart catheterization which was completed and showed calcified coronary artery, significant distal left main by IVUS, mild to moderate disease of the left anterior descending artery. Transthoracic echo was completed showed EF of 55%, mild mitral regurgitation, mild tricuspid regurgitation. Patient was then referred for coronary artery bypass grafting. During her outpatient preoperative workup patient was noted to have hyponatremia with sodium level of 120. She was advised to go to the emergency department to be admitted to correct her sodium level. Patient reports she's asymptomatic, she denies any chest pain, palpitations, shortness of breath, fever, chills, no nausea, vomiting, diarrhea, or diarrhea. Consult placed for nephrology, she was started on 0.9 normal saline at 75 mL per hour. 08/07: Patient has been afebrile, heart rate 62, blood pressure 132/70, pulse ox 90% on room air. Sodium today is at 125. Potassium 4.0, chloride 90, CO2 20, BUN 20 creatinine 0.7. Patient is followed by nephrology and received sodium chloride tablet 2 g once this morning. Repeat sodium level at 2 PM, cortisol level ordered and TSH. Patient states that she is feeling well today. She denies any lightheadedness or dizziness. No chest pain or shortness of breath. She is scheduled for open heart surgery on Monday and anticipates that she will be here through the weekend. 08/08 sodium is much better, instructions were for discontinuation of IV fluids, currently running at 75 mL an hour, sodium 135, seen by nephrology, patient is scheduled to have open heart surgery on Monday, and the would consult Dr. Sethi, and Dr. Harrison, who would assist with preop CABG management, patient denies any nausea vomiting, blood pressure is significantly much better today, no chest pain no difficulty breathing, but pressure fluctuates between 99 systolic to 161 systolic, heart rate stable at 60-69, creatinine at 0.08 urinalysis negative, patient continues to be off hydrochlorothiazide 08/09 patient feels well today, no new concerns of chest pain shortness of breath no lightheadedness no dizziness, no GI losses no pleurisy, no dysuria. Patient's serum sodium is 138, electrolytes are normal creatinine is 0.8, expected to proceed with CABG as scheduled for August 10Monday morning. board, comes felt with cardiology to assist with postcardiac management in the morning. She will be made nothing by mouth post midnight tonight 08/10: Patient is gone this morning for CABG. Patient was not seen and evaluated at this time. 08/11: Patient is status post CABG, left internal mammary artery to the left anterior descending artery, reverse saphenous vein graft from the aorta to the f irst obtuse marginal artery, postop day #1. Patient was successfully extubated. Patient is seen today in the intensive care unit. Patient complains of generalized fatigue and weakness. Temperature max 100.6, heart rate in the 70s and 80s, respiratory rate 25, blood pressure 91/39, pulse ox 93% on 2 L nasal cannula. WBC 7.9, hemoglobin 7.2, platelet count 109. INR is 1.2. Sodium 133 otherwise elect lites are normal, creatinine 0.63. Total bilirubin 0.6. AST 37, lymphocytes 26. Repeat chest x-ray reveals difficult to exclude component of volume overload, interstitial edema, there may be basilar atelectasis versus edema, associated effusion. Patient is reaching 500 on incentive spirometry. 08/12: Patient remains in the intensive care unit and looks more comfortable today. Patient is resting in a chair. Her pulse ox is running 88-90% on 2 L but respiratory status appears stable. She's been afebrile, heart rate in the 80s, blood pressure 111/47. Blood sugars have been running 107-133. Insulin drip will be discontinued and patient placed on NovoLog scale every 4 hours until nighttime and transition to before meals at bedtime. Norepinephrine to be weaned. IV lasix was ordered this morning. WBC 11.7, hemoglobin 7.3, platelet count 112. Sodium 131, creatinine 0.82. Mediastinal chest tube to be removed today and Yu to be removed today. 08/13: Patient remains in the intensive care unit. She appears to be comfortable. She is found sitting up in chair. No shortness of breath. She has occasional cough. She is working on incentive spirometry. Patient has been afebrile, heart rate 100, blood pressure 101/53, pulse ox 97% on 2 L nasal cannula. conveyor monitor sinus rhythm. WBC 7.4, hemoglobin 7, platelet count 107. Sodium 130, potassium 4.3, chloride 103, CO2 25, BUN 21 and creatinine 0.86. Blood sugar 104. Capillary blood glucose running between 104 and 134. Repeat chest x-ray reveals no evident complications status post chest tube removal. Persistent atelectatic changes. Cardiac megaly. Postop changes. Patient received 1 dose of IV Lasix this morning. Yu catheter was removed yesterday and patient has been straight cathed this morning. Right Cordis to be removed. 08/14: Patient is seen today in the intensive care unit. She states she is not doing well because she has thrush is having difficulty eating. She was started on nystatin swish and swallow this morning. He has been afebrile, heart rate 96, blood pressure 133/68, pulse ox 91% on room air. conveyor monitor has been in sinus rhythm. She is reaching 750 on incentive spirometry. WBC 8, hemoglobin 7, creatinine 0.72. Blood sugars running between 108 130. Patient is scheduled to be transferred out of the intensive care unit today. Discussed discharge planning with the patient and inpatient rehab may be a good option for her. Cardiothoracic team to address. 08/15/: She has seen today on . She states that she is having some difficulty breathing with cough and congestion. Remained afebrile, heart rate 102, respirations 18 blood pressure 151/67. Pulse ox a 95% on room. WBCs 10.0, hemoglobin 7.4, potassium 3.5, BUN 18, creatinine 0.63. Blood sugars between 108 and 135. 08/16: Patient was found ambulatory in the ha. Patient states that she is feeling much better, taking his to complain of sore scratchy throat. Denies any difficulty breathing cough or congestion at this time. Patient has been afebrile, pulse rate 96, blood pressure 171/79, pulse ox a 95% on room air. Patient will have pacemaker wires removed today. With anticipation for possible discharge home tomorrow. Additional dose of Lasix given, beta sisi increased to 75 2 times a day. Nystatin swish and swallow given 4 days. We'll add Diflucan for Belen's of the mouth. REVIEW OF SYSTEMS Constitutional: Reports fatigue, Denies chills, Denies fever, reports mild fatigue. Ears, nose, mouth and throat: Denies headache, Denies nasal congestion, reports nasal discharge, Denies sinus pain, Denies sinus pressure, reports sore throat Cardiovascular: Reports chest discomfort, Denies edema, Denies irregular heart beat, Denies leg edema, Denies orthopnea, Denies palpitations, Denies shortness of breath, Denies syncope Respiratory: Denies congestion, Denies cough, Denies pain, Denies respiratory infections, Denies wheezing Gastrointestinal: Denies abdominal pain, Denies constipation, Denies diarrhea, Denies dyspepsia, Denies heartburn, Denies hematemesis, Denies loss of appetite, Denies nausea, Denies vomiting Genitourinary: Denies dysuria, Denies hematuria, Denies urgency Musculoskeletal: Denies arm numbness/tingling, Denies atrophy, Denies fractures, Denies frequent falls, Denies gait dysfunction, Denies myalgias, Denies neck pain, Denies neck stiffness Integumentary: Denies dryness, Denies lesions, Denies pruritus, Denies sores, Denies wounds Neurological: Denies confusion, Denies gait dysfunction, Denies headaches, Denies paralysis, Denies seizures, Denies spasticity, Denies syncope, Denies vertigo Psychiatric: Denies anxiety, Denies confusion, Denies irritability, Denies mood swings, Denies paranoia, Denies suicidal ideation Endocrine: Denies excessive sweating, Denies fatigue, Denies high blood sugars, Denies palpitations, Denies polyphagia, Denies polyuria, Denies thyroid mass PHYSICAL EXAMINATION Gen: This is a 75-year-old female. She is sitting up at the edge of the bed and appears to be comfortable and in no acute distress. HEENT: Head is atraumatic, normocephalic. Pupils equal, round. Sclerae is anicteric. Right-sided Cordis in place. Postnasal drip drainage noted, throat shows erythema NECK: Supple. No JVD. No lymphadenopathy. No thyromegaly. LUNGS: Diminished bilaterally. No intercostal retractions. HEART: Regular rate and rhythm. No murmur. left pleural chest tube. ABDOMEN: Soft. Bowel sounds are present. No masses. No tenderness. EXTREMITIES: No pedal edema. No calf tenderness. Dorsalis pedis palpable bilaterally. NEUROLOGICAL: Patient is awake, alert and oriented x3. Cranial nerves 2 through 12 are grossly intact. ASSESSMENT AND PLAN 1. Hyponatremia, resolved. Nephrology is following. 2. Coronary artery disease with left main disease status post CABG. Continue current management per cardiothoracic team. 3. History of pulmonary fibrosis. Continue duo nebs and albuterol 4. Asthma, mild intermittent. Continue ipratropium albuterol nebulizers 5. Hyperlipidemia. Continue statin daily 6. Hypertension. Continue Lopressor increased to 75 mg twice a day 7. GI prophylaxis. Pantoprazole 8. DVT prophylaxis: SCDs 9. Blood sugar management in a nondiabetic. insulin scale ACHS. 10. Pulmonary venous congestion. Repeat chest x-ray, 40 mg Lasix IV. Continue to monitor hemoglobin. 11. Thrush. Diflucan 100 mg daily. Continue with nystatin swish and swallow. Instructed to gargle with warm salt water. DISCHARGE PLAN Home with homecare most likely Impression and plan of care have been directed as dictated by the signing physician. Quynh Delacruz nurse practitioner acting as scribe for signing physician. Objective - Vital Signs Vital signs: Vital Signs Temp 98.2 F 08/16/20 08:00 Pulse 96 08/16/20 08:31 Resp 18 08/16/20 08:00 BP 171/79 08/16/20 08:00 Pulse Ox 95 08/16/20 08:00 Intake & Output 08/15/20 08/16/20 08/16/20 18:59 06:59 18:59 Intake Total 480 360 Output Total 2100 200 Balance -1620 -200 360 Weight 89.9 kg 88.5 kg Intake: Oral 480 360 Output: Urine 1900 200 Post Void Residual 200 Other: Voiding Method Toilet Toilet # Voids 1 # Bowel Movements 1 1 ABP, PAP, CO, CI - Last Documented Arterial Blood Pressure 95/50 Pulmonary Artery Pressure 37/16 Cardiac Output 6 Cardiac Index 3.4 - Labs CBC & Chem 7: 08/16/20 07:02 08/16/20 07:02 Labs: Abnormal Lab Results - Last 24 Hours (Table) 08/15/20 08/15/20 08/15/20 Range/Units 12:02 17:05 20:53 WBC (3.8-10.6) k/uL RBC (3.80-5.40) m/uL Hgb (11.4-16.0) gm/dL Hct (34.0-46.0) % Sodium (137-145) mmol/L Glucose (74-99) mg/dL POC Glucose (mg/dL) 121 H 129 H 122 H (75-99) mg/dL 08/16/20 08/16/20 08/16/20 Range/Units 04:39 07:02 07:02 WBC 11.3 H (3.8-10.6) k/uL RBC 2.48 L (3.80-5.40) m/uL Hgb 7.6 L (11.4-16.0) gm/dL Hct 22.8 L (34.0-46.0) % Sodium 134 L (137-145) mmol/L Glucose 106 H (74-99) mg/dL POC Glucose (mg/dL) 114 H (75-99) mg/dL
[2020-08-16 12:22] LABS: Glucose,Whole Blood 126 mg/dL (75-99)
--- NOTE | 2020-08-16 12:30 | P.PN ---
Subjective Progress Note Date: 08/16/20 75-year-old female who was admitted to the hospital on August 06. She came in because her sodium was low. I saw the patient in the office for preop clearance in anticipation of bypass grafting. She actually had the surgery today. Currently, she is on the volume assist control mode, rate of 12, tidal volume 350, FiO2 70%, and a PEEP of 5. Plendil same settings but 100%, the pO2 was 243, the pCO2 is 44, and a pH of 7.34. She is currently on saline at 50 mL an hour, nitroglycerin at 5 mcg/m, propofol has been turned off, and she is on norepinephrine at 5 mcg/m. She apparently had a two-vessel bypass grafting. She has a history of hyperlipidemia, hypertension, CAD, skin cancer, arthritis, and possible TIA. In addition, I saw her in the distant past for some interstitial lung disease/pulmonary fibrosis. The patient did have a complete pulmonary function test in my office. The patient's lung function including the FEV1, MVV, and RV/TLC ratio were all excellent. Based on her numbers, I thought she was at low increased operative risk. This was passed onto the cardiothoracic team. The patient surgery included a bypass graft using the left internal mammary artery to the left anterior descending coronary artery, and a reverse saphenous vein graft from aorta to the first obtuse marginal artery. She also had exclusion of the left atrial appendage using a 35 mm AtriClip, endoscopic harvesting of the left greater saphenous vein, intraoperative graft flow measurements using the Medi-Stim system and intraoperative transesophageal echocardiogram. Progress note dated 08/11/2020. 75-year-old female postop day #2, status post two-vessel bypass grafting. Currently, the patient is doing relatively well. She is on 2 L nasal cannula. She is getting lactated Ringer's at 50 mL an hour, norepinephrine at 8.2 mcg/m, insulin at 0.5 units an hour. She was extubated about 4-1/2 hours after leaving the operating room. She had a pretty uneventful night according to her nurse. Her chest x-rays reviewed. This shows typical postoperative changes. I did a preop evaluation on her, and her lung function is mentioned in my consultation were excellent. She does have a history of underlying mild pulmonary fibrosis/interstitial lung disease. Currently, her white count is 7.9, hemog lobin 7.2, hematocrit 20.4, and platelet count 109,000. PT is 12.1, INR 1.2, PTT 41.1. Her last blood gases prior to extubation show a PaO2 of 114, PaCO2 of 43, and a pH of 7.37. Sodium is 133, potassium 4.3, chlorides 104, CO2 24, anion gap 5, BUN 13, and creatinine 0.63. Albumin is 2.9. Calcium is 7.7. Ionized calcium is normal. On 08/12/2020 patient seen in follow-up in the intensive care unit, she is awake and alert, she is in no acute distress, today is postoperative day 3 status post two-vessel bypass grafting. She is currently on 2 L of oxygen pulse ox of 90%, vital signs have been stable. Patient is working on incentive spirometer, today's chest x-ray has been reviewed showing a component of interstitial edema, basilar atelectasis versus edema, relatively stable exam. Patient remains on vasopressor support in the form of the fat currently running at 13 mics per minute, and she did require volume in the form of 5% albumin ordered by cardiothoracic surgery. She received a total of thousand mL of 5% albumin yesterday, with additional 250 of albumin this morning. Patient is significantly positive terms of her weight, +14 kg since admission. Patient still has mediastinal chest tube in place with a total of 370 of thin serosanguineous fluid in the last 24 hours, and left lateral chest tube put out 810 of fluid. Patient's 0.9 normal saline is running at 20 ML per hour. The patient is seen today 08/13/2020 in follow-up in the intensive care unit. Postoperative day #4. She is awake and alert in no acute distress. Currently sitting up in a chair at the bedside. She is maintaining O2 saturations in the 90s on 2 L/m per nasal cannula. Only pulling approximately 500 ML's on the incentive spirometer. Left pleural chest tube remains in place. Chest x-ray reveals evidence of basilar atelectasis and some fluid volume overload. Hemodynamically stable and currently off pressors. Status post 1 unit of packed red blood cells this admission. Current hemoglobin 7.0. Platelet count 107. 7.4. Sodium 130. Potassium 4.3. Creatinine 0.86. Magnesium 2.4. Albumin 2.7. The patient is seen today 08/15/2020 in follow-up on the elective care unit. She is currently sitting up in a chair at the bedside. Awake and alert in no acute distress. This is postoperative day #6. Denies any worsening shortness of breath, cough or congestion. She is maintaining O2 saturations in the 90s on room air. She's working well with the incentive spirometer. She's been up with assistance. Chest x-ray revealed cardiomegaly with small effusions and pulmonary venous congestion with scattered infiltrates. White count 10.0. Hemoglobin 7.4. Sodium 136. Potassium 3.5. Creatinine 0.63. She remains on bronchodilators. Heparin for DVT prophylaxis. The patient is seen today 08/16/2020 in follow-up on the selective care unit. She is awake and alert in no acute distress. She's been up ambulating in the hallway without any acute distress. She is maintaining good O2 saturations in the 90s on room air. She is doing better with her incentive spirometer. No pulmonary complaints. Chest x-ray showing improved pulmonary vascular congestion. Continue cardiomegaly with small effusions and scattered infiltrates. She is status post 1 unit of packed red blood cells this admission. Current hemoglobin 7.6. White count 11.3. Sodium 134. Potassium 3.5. Creatinine 0.64. Magnesium 1.8. Magnesium being replaced. She was given Lasix 40 mg IVP 1 today. Remains on bronchodilators. Objective - Vital Signs Vital signs: Vital Signs Temp 98.3 F 08/16/20 11:15 Pulse 100 08/16/20 12:18 Resp 19 08/16/20 11:50 BP 132/63 08/16/20 11:50 Pulse Ox 94 L 08/16/20 11:50 Intake & Output 08/15/20 08/16/20 08/16/20 18:59 06:59 18:59 Intake Total 480 360 Output Total 2100 200 Balance -1620 -200 360 Weight 89.9 kg 88.5 kg Intake: Oral 480 360 Output: Urine 1900 200 Post Void Residual 200 Other: Voiding Method Toilet Toilet # Voids 1 # Bowel Movements 1 1 ABP, PAP, CO, CI - Last Documented Arterial Blood Pressure 95/50 Pulmonary Artery Pressure 37/16 Cardiac Output 6 Cardiac Index 3.4 - Exam GENERAL EXAM: Alert, 75-year-old female patient, up in a chair at the bedside, on room air, comfortable in no apparent distress. HEAD: Normocephalic. EYES: Normal reaction of pupils, equal size. NOSE: Clear with pink turbinates. THROAT: No erythema or exudates. NECK: No masses, no JVD. CHEST: Sternal dressing dry and intact. Heart hugger in place. LUNGS: Equal air entry with bibasilar crackles. CVS: S1 and S2 normal with no audible murmur, regular rhythm. ABDOMEN: No hepatosplenomegaly, normal bowel sounds, no guarding or rigidity. SPINE: No scoliosis or deformity SKIN: No rashes CENTRAL NERVOUS SYSTEM: No focal deficits, tone is normal in all 4 extremities. EXTREMITIES: There is trace peripheral edema. No clubbing, no cyanosis. Peripheral pulses are intact. - Labs CBC & Chem 7: 08/16/20 07:02 08/16/20 07:02 Labs: Abnormal Lab Results - Last 24 Hours (Table) 08/15/20 08/15/20 08/16/20 Range/Units 17:05 20:53 04:39 WBC (3.8-10.6) k/uL RBC (3.80-5.40) m/uL Hgb (11.4-16.0) gm/dL Hct (34.0-46.0) % Sodium (137-145) mmol/L Glucose (74-99) mg/dL POC Glucose (mg/dL) 129 H 122 H 114 H (75-99) mg/dL 08/16/20 08/16/20 08/16/20 Range/Units 07:02 07:02 12:11 WBC 11.3 H (3.8-10.6) k/uL RBC 2.48 L (3.80-5.40) m/uL Hgb 7.6 L (11.4-16.0) gm/dL Hct 22.8 L (34.0-46.0) % Sodium 134 L (137-145) mmol/L Glucose 106 H (74-99) mg/dL POC Glucose (mg/dL) 126 H (75-99) mg/dL Assessment and Plan Assessment: 1 Coronary artery disease including left main disease, status post coronary artery revascularization on 08/10/2020. 2 Hyponatremia suspect secondary to hypovolemia and thiazide diuretics. Corrected, current sodium 134 3 History of mild pulmonary fibrosis dating back to 2017. FEV1 value 101% of predicted. 4 Obesity 5 Hypertension 6 Hyperlipidemia 7 Arthritis 8 Former smoker Plan: The patient was seen and evaluated by Dr. Guadalupe Chest x-ray and labs reviewed Doing better, on room air Increase her activity as tolerated Probable discharge in the a.m. We will continue to follow I, the cosigning physician, performed a history & physical examination of the patient. Lungs sounds with coarse crackles in the bilateral posterior bases. Maintaining good O2 saturations in the 90s on room air. I discussed the assessment and plan of care with my nurse practitioner, Aparna Colunga. I attest to the above note as dictated by her.
[2020-08-16] MEDS: POTASSIUM CHLORIDE ER 20 MEQ TAB.ER PO SCH ×2 (12:43→12:44)
[2020-08-16] MEDS: ASCORBIC ACID 500 MG TAB PO SCH (12:44)
[2020-08-16] MEDS: FERROUS SULFATE 325 MG TAB PO SCH (12:44)
[2020-08-16] MEDS: LOSARTAN 25 MG TAB PO SCH (12:44)
--- NOTE | 2020-08-16 12:57 | P.PN ---
Subjective Progress Note Date: 08/16/20 The patient was interviewed and examined sitting comfortably in the recliner chair. She is eager to be discharged tomorrow. She does have chest pain with coughing. No chest heaviness, orthopnea, palpitations, dizziness, or lightheadedness. GENERAL: Well-appearing, well-nourished and in no acute distress. NECK: Supple without JVD or thyromegaly. LUNGS: Breath sounds clear to auscultation bilaterally. Respiration equal and unlabored. No rales or rhonchi. Bronchial inspiratory wheeze. HEART: Regular rate and rhythm without murmurs, rubs or gallops. S1 and S2 heard. Sternal however and place. EXTREMITIES: Normal range of motion, no edema. No clubbing or cyanosis. Peripheral pulses intact and strong. SKIN: Surgical dressings clean, dry, and intact. VITALS: Blood pressure 132/63, respiratory rate 18, pulse rate 96, temperature 98.3F, SpO2 95% on room air TELEMETRY: Sinus rhythm with heart rates in the 90s to one-teens overnight LABS: WBC 11.3, hemoglobin 7.6, hematocrit 22.8, platelet 256, sodium 134, potassium 3.5, BUN 15, creatinine 0.64, magnesium 1.8 IMPRESSION: #1 coronary artery disease, status post coronary artery bypass grafting #2 pulmonary fibrosis #3 hypertension #4 dyslipidemia #5 blood loss anemia, hemoglobin 7.4 PLAN: Continue current medication regimen; cardiothoracic surgery increased beta sisi and additional 40 mg IV push of furosemide Encourage pulmonary toilet and ambulation No additional recommendations at this time Objective - Vital Signs Vital signs: Vital Signs Temp 98.3 F 08/16/20 11:15 Pulse 104 H 08/16/20 12:26 Resp 19 08/16/20 11:50 BP 132/63 08/16/20 11:50 Pulse Ox 94 L 08/16/20 11:50 Intake & Output 08/15/20 08/16/20 08/16/20 18:59 06:59 18:59 Intake Total 480 960 Output Total 2100 200 Balance -1620 -200 960 Weight 89.9 kg 88.5 kg Intake: Oral 480 960 Output: Urine 1900 200 Post Void Residual 200 Other: Voiding Method Toilet Toilet # Voids 1 # Bowel Movements 1 1 ABP, PAP, CO, CI - Last Documented Arterial Blood Pressure 95/50 Pulmonary Artery Pressure 37/16 Cardiac Output 6 Cardiac Index 3.4 - Labs CBC & Chem 7: 08/16/20 07:02 08/16/20 07:02 Labs: Abnormal Lab Results - Last 24 Hours (Table) 08/15/20 08/15/20 08/16/20 Range/Units 17:05 20:53 04:39 WBC (3.8-10.6) k/uL RBC (3.80-5.40) m/uL Hgb (11.4-16.0) gm/dL Hct (34.0-46.0) % Sodium (137-145) mmol/L Glucose (74-99) mg/dL POC Glucose (mg/dL) 129 H 122 H 114 H (75-99) mg/dL 08/16/20 08/16/20 08/16/20 Range/Units 07:02 07:02 12:11 WBC 11.3 H (3.8-10.6) k/uL RBC 2.48 L (3.80-5.40) m/uL Hgb 7.6 L (11.4-16.0) gm/dL Hct 22.8 L (34.0-46.0) % Sodium 134 L (137-145) mmol/L Glucose 106 H (74-99) mg/dL POC Glucose (mg/dL) 126 H (75-99) mg/dL
[2020-08-16] MEDS ORDERED: Potassium Replacement Protocol 1 EACH MISC MISCELLANE PRN ×2 (13:44→19:11)
[2020-08-16 17:16] LABS: Glucose,Whole Blood 119 mg/dL (75-99)
[2020-08-16] MEDS: POTASSIUM CHLORIDE 10 MEQ in WATER FOR INJECTION 1 100ML.BAG IVPB SCH ×4 (20:00→23:09)
[2020-08-16 20:25] LABS: Glucose,Whole Blood 119 mg/dL (75-99)
[2020-08-16] MEDS: SENNOSIDES-DOCUSATE SODIUM 1 EACH TAB PO SCH (20:51)
[2020-08-17 01:29] LABS: Glucose,Whole Blood 115 mg/dL (75-99)
[2020-08-17] MEDS: INSULIN ASPART (NovoLOG) 100 UNIT/ML VIAL SQ SCH ×6 (01:31→20:44)
[2020-08-17] MEDS: ACETAMINOPHEN TAB 325 MG TAB PO PRN ×4 (01:31→20:44)
[2020-08-17 02:03] LABS: African American GFR (CKD) >90 (>60 ml/min/1.73 sqM); Anion Gap 10 mmol/L; Blood Urea Nitrogen 15 mg/dL (7-17); Calcium 8.5 mg/dL (8.4-10.2); Carbon Dioxide 24 mmol/L (22-30); Chloride 94 mmol/L (98-107); Glucose 112 mg/dL (74-99); Non-African American GFR(CKD) 88 (>60 ml/min/1.73 sqM); Potassium 3.6 mmol/L (3.5-5.1); Sodium 128 mmol/L (137-145)
[2020-08-17] MEDS: POTASSIUM CHLORIDE 10 MEQ in WATER FOR INJECTION 1 100ML.BAG IVPB SCH ×2 (02:06→02:07)
[2020-08-17] MEDS: IPRATROPIUM-ALBUTEROL 3 ML NEB INHALATION PRN (03:22)
[2020-08-17 05:10] LABS: Glucose,Whole Blood 121 mg/dL (75-99)
--- NOTE | 2020-08-17 06:10 | P.CONS ---
History of Present Illness - Chief Complaint Cardiac debility - History of Present Illness I had the opportunity to see patient for inpatient rehab consultation with regard to cardiac debility. She was admitted to [facility] August 06 with known cardiac disease and underwent elective CABG. Seen by Dr. Guadalupe in by hospitalist. Chest x-rays followed and no decrease in congestion and effusions. Cardiomegaly. PT reports minimal assistance bed mobility, transfers, gait 26 feet, hand-held. OT reports moderate assistance for upper dressing and bathing and maximal assistance for lower dressing and toileting and minimal assistance for transfer. Previous functional history as elicited patient: 75-year-old right-handed white female who is lives in one floor home with . Both retired. Desc ribes independent with cooking, laundry, driving, standing shower and gait without device. PMD Dr. Carlos Avila. Denies tobacco or alcohol. Family history both parents with heart disease. Review of Systems Review of systems: ENT: Denies sneezes or discharge. Eyes: Denies discharge or photophobia. Cardiac: Denies chest pain or palpitation. Pulmonary: shortness of breath, especially with activity. Breast: Denies discharge or lumps. Gastrointestinal: Denies nausea, emesis, constipation, diarrhea. Genitourinary: Denies discharge or frequency. Musculoskeletal: Denies muscle or bone aches. Neurologic: Denies motor or sensory change. Endocrine: Denies shakes or sweats. Oncology: Denies cancers. Dermatologic: Denies rash, itching, pruritus. ALLERGY/immunology: Denies sneezes, rashes. Past Medical History Past Medical History: Asthma, Hyperlipidemia, Hypertension Additional Past Medical History / Comment(s): skin cancer with removals, arthritis multiple joints, back and cervical pain, ?TIA in her teens-shows up on scan?, pulmonary fibrosis History of Any Multi-Drug Resistant Organisms: None Reported Past Surgical History: Cholecystectomy, Heart Catheterization, Tonsillectomy, Tubal Ligation Additional Past Surgical History / Comment(s): 2 cardiac caths without intervention, bilateral cataract removal with lens implants, skin cancer removals, cyst removed from neck, colonoscopy, cervical fusion Past Anesthesia/Blood Transfusion Reactions: No Reported Reaction Additional Past Anesthesia/Blood Transfusion Reaction / Comm: Pt has never received blood. Past Psychological History: No Psychological Hx Reported Additional Psychological History / Comment(s): Pt resides with her spouse. She drives. Smoking Status: Former smoker Past Alcohol Use History: Occasional Additional Past Alcohol Use History / Comment(s): Pt started smoking in 3 and quit in 1981. She smoked one and half packs per day. Past Drug Use History: None Reported - Past Family History Brother(s) Family Medical History: Coronary Artery Disease (CAD) Additional Family Medical History / Comment(s): "bad heart" aneurysm Sister(s) Family Medical History: Cancer Additional Family Medical History / Comment(s): breast cancer Mother Family Medical History: Cancer, Coronary Artery Disease (CAD) Additional Family Medical History / Comment(s): Lymphoma, had a pacemaker. Mother at the age of 92yrs. Father Family Medical History: Coronary Artery Disease (CAD), Myocardial Infarction (AL) Additional Family Medical History / Comment(s): Father of a AL at the age of 63 yrs, diagnosed with CAD in his early 50s. Medications and Allergies Home Medications Medication Instructions Recorded Confirmed Type Ipratropium-Albuterol Nebulize 3 ml INHALATION RT-QID PRN 05/18/15 08/06/20 History [Duoneb 0.5 mg-3 mg/3 ml Soln] Losartan Potassium 100 mg PO DAILY 05/18/15 08/06/20 History Simvastatin [Zocor] 40 mg PO DAILY 05/18/15 08/06/20 History Aspirin EC [Ecotrin Low Dose] 81 mg PO DAILY 04/10/17 08/06/20 History Ibuprofen [Motrin] 800 mg PO TID PRN 12/05/17 08/06/20 History Nitroglycerin Sl Tabs [Nitrostat] 0.5 tab SUBLINGUAL Q5M PRN 07/22/20 08/06/20 History hydroCHLOROthiazide 25 mg PO DAILY 07/27/20 08/06/20 History Isosorbide Mononitrate ER [Imdur] 15 mg PO DAILY 08/05/20 08/05/20 History Albuterol Sulfate [Albuterol 2 puff PO RT-Q6H PRN 08/06/20 08/06/20 History Sulfate Hfa] Metoprolol Tartrate [Lopressor] 12.5 mg PO BID 08/06/20 08/06/20 History Allergies Allergy/AdvReac Type Severity Reaction Status Date / Time adhesive Allergy blisters Verified 08/06/20 13:48 latex Allergy Rash/Hives Verified 08/06/20 13:48 Physical Exam Vitals: Vital Signs Temp Pulse Pulse Resp BP BP Pulse Ox 08/17/20 04:00 97.7 F 83 20 146/79 95 08/17/20 03:30 88 08/17/20 03:24 84 08/17/20 02:00 18 08/17/20 00:00 97.4 F L 75 18 147/73 93 L 08/16/20 20:20 98 08/16/20 20:09 98 08/16/20 20:00 18 08/16/20 19:43 98.3 F 89 18 134/83 97 08/16/20 16:21 100 08/16/20 16:12 100 08/16/20 16:00 98.1 F 85 19 143/68 97 08/16/20 14:00 74 19 08/16/20 12:26 104 H 08/16/20 12:18 100 08/16/20 11:50 74 19 132/63 94 L 08/16/20 11:15 98.3 F 84 19 115/58 95 08/16/20 08:31 96 08/16/20 08:23 102 H 08/16/20 08:00 98.2 F 74 19 171/79 95 Intake and Output 08/16/20 08/16/20 08/17/20 14:59 22:59 06:59 Intake Total 1200 460 300 Output Total 600 220 Balance 1200 -140 80 Intake: Intake, IV Titration 100 300 Amount Potassium Chloride 10 meq 100 300 In Water For Injection 1 100ml.bag @ 100 mls/hr IVPB Q1HR [facility] Rx#: [id number] Oral 1200 360 Output: Urine 600 220 Other: Voiding Method Toilet Toilet Toilet # Voids 1 1 # Bowel Movements 1 1 Weight 88.4 kg Skin: Atrophic, intact. General: Overweight build and comfortable appearance. Head: Normocephalic, atraumatic. Eyes: Symmetric. Pupils equal round. Ears: Symmetric. Hearing within normal limits. Mouth: Clear. Neck: Supple. Carotid without bruit. Cardiac: Regular rate and rhythm. Midline sternotomy clean and well healed, clean and dressed. Lungs: Clear anteriorly and posteriorly. Abdomen: Soft active nontender. Extremities: Normal tone. Neurological: Mental status: Alert, cooperative, pleasant. Cranial nerves: Symmetric facial tone and trapezius. Motor: Normal strength and isolation all 4 limbs. Sensation: Intact throughout. DTRs: Symmetric and equal throughout. Mobility: Sits and stands with 5% minimal assistance and was ambulating in the hallway with staff this a.m. Results CBC & Chem 7: 08/16/20 07:02 08/17/20 01:23 Labs: Abnormal Lab Results - Last 24 Hours (Table) 08/16/20 08/16/20 08/16/20 Range/Units 07:02 07:02 12:11 WBC 11.3 H (3.8-10.6) k/uL RBC 2.48 L (3.80-5.40) m/uL Hgb 7.6 L (11.4-16.0) gm/dL Hct 22.8 L (34.0-46.0) % Sodium 134 L (137-145) mmol/L Potassium (3.5-5.1) mmol/L Chloride (98-107) mmol/L Glucose 106 H (74-99) mg/dL POC Glucose (mg/dL) 126 H (75-99) mg/dL 08/16/20 08/16/20 08/16/20 Range/Units 16:30 17:03 20:23 WBC (3.8-10.6) k/uL RBC (3.80-5.40) m/uL Hgb (11.4-16.0) gm/dL Hct (34.0-46.0) % Sodium (137-145) mmol/L Potassium 3.1 L (3.5-5.1) mmol/L Chloride (98-107) mmol/L Glucose (74-99) mg/dL POC Glucose (mg/dL) 119 H 119 H (75-99) mg/dL 08/17/20 08/17/20 08/17/20 Range/Units 01:23 01:25 05:09 WBC (3.8-10.6) k/uL RBC (3.80-5.40) m/uL Hgb (11.4-16.0) gm/dL Hct (34.0-46.0) % Sodium 128 L (137-145) mmol/L Potassium (3.5-5.1) mmol/L Chloride 94 L (98-107) mmol/L Glucose 112 H (74-99) mg/dL POC Glucose (mg/dL) 115 H 121 H (75-99) mg/dL Assessment and Plan (1) Chest pain Current Visit: No Status: Acute Code(s): R07.9 - CHEST PAIN, UNSPECIFIED SNOMED Code(s): 33002165 Plan: Impression: 1. Cardiac debility. 2. CAD status post CABG. 3. Cervical disc disease with cervical myelopathy. 4. Overweight to obese. 5. Asthma. 6. Hypertension. 7. Dyslipidemia. Some plan: At this time PT and OT are ongoing. We'll await therapy notes today. Patient preference is to go home with supportive . We'll determine if is able to manage patient or if he requires certain improvement 6. B rehab goals.
[2020-08-17] MEDS: PANTOPRAZOLE 40 MG TABLET PO SCH (06:22)
[2020-08-17 06:36] LABS: Glucose,Whole Blood 123 mg/dL (75-99)
[2020-08-17 07:28] LABS: HCT 23.8 % (34.0-46.0); HGB 7.6 gm/dL (11.4-16.0); Hypochromasia Slight; MCH 29.7 pg (25.0-35.0); MCHC 32.2 g/dL (31.0-37.0); MCV 92.5 fL (80.0-100.0); Mean Platelet Volume 7.4; Platelet Count 335 k/uL (150-450); Poikilocytosis Slight; RBC 2.57 m/uL (3.80-5.40); RDW 15.5 % (11.5-15.5); WBC 13.6 k/uL (3.8-10.6)
[2020-08-17 07:36] LABS: African American GFR (CKD) >90 (>60 ml/min/1.73 sqM); Anion Gap 10 mmol/L; Blood Urea Nitrogen 14 mg/dL (7-17); Calcium 8.7 mg/dL (8.4-10.2); Carbon Dioxide 27 mmol/L (22-30); Chloride 93 mmol/L (98-107); Glucose 104 mg/dL (74-99); Magnesium 1.9 mg/dL (1.6-2.3); Non-African American GFR(CKD) 88 (>60 ml/min/1.73 sqM); Potassium 3.8 mmol/L (3.5-5.1); Sodium 130 mmol/L (137-145)
[2020-08-17] MEDS ORDERED: POTASSIUM CHLORIDE 10 MEQ in WATER FOR INJECTION 1 100ML.BAG IVPB SCH (07:36)
[2020-08-17] MEDS: IPRATROPIUM-ALBUTEROL 3 ML NEB INHALATION SCH ×4 (08:07→20:50)
[2020-08-17 08:16] LABS: Glucose,Whole Blood 132 mg/dL (75-99)
[2020-08-17] MEDS ORDERED: FUROSEMIDE 10 MG/ML 4 ML VIAL IV STA (08:16)
[2020-08-17] MEDS ORDERED: POTASSIUM CHLORIDE ER 20 MEQ TAB.ER PO SCH (08:16)
--- NOTE | 2020-08-17 08:29 | P.PN ---
Subjective Progress Note Date: 08/17/20 Principal diagnosis: Coronary artery disease with left main disease, preserved systolic function, preoperative hyponatremia warranting admission for correction. Past medical history significant for pulmonary fibrosis, asthma, hypertension, hyperlipidemia, previous tobacco dependence with preoperative FEV1 107% of predicted, obesity, osteoarthritis, cervical stenosis post anterior cervical decompression with discectomy and fusion, TIA in childhood, and family history of premature coronary artery disease. POD #7 double vessel coronary artery bypass grafting using the left internal mammary artery to the left anterior descending artery, reverse saphenous vein graft from the aorta to the first obtuse marginal artery, exclusion of the left atrial appendage using a 35 mm AtriClip, endoscopic harvesting of the left greater saphenous vein from the groin to just below the knee level, intraoperative graft flow measurements using the VTM system, intraoperative transesophageal echocardiogram and epi-aortic scanning. Postoperative acute blood loss anemia, expected given hemodilution and cardiopulmonary bypass pump. Postoperative hypotension requiring vasopressor support, expected vasoplegia due to preoperative ARB use. The patient was seen in follow-up today 08/17/2020 at her bedside on the cardiac stepdown unit. Currently she is sitting up to the bedside chair, is awake, alert and oriented 3. The patient reports that she continues to have a sore mouth and sore throat, although reports that it is much improved today from yesterday. She was started on Diflucan 100 mg by mouth daily by primary care service for thrush. Denies any complaints of surgical type pain at this time or shortness of breath, although the patient reports that she does have some shortness of breath with ambulating. Yesterday while ambulating in the cardiac stepdown unit hallway she had a complaint of dizziness and some nausea which has since resolved. She remained hemodynamically stable and is currently on no inotropic or pressor support. Oxygen saturations are 95% on room air and she is achieving 1000 mL on her incentive spirometry. Despite her complaints of a sore mouth she has been tolerating oral intake. She reports she ambulated in the cardiac stepdown unit hallway 4 times yesterday with minimal assistance from nursing and therapy staff. She remains afebrile the last 24 hours, remote telemetry showing normal sinus rhythm heart rate 88 BPM and her blood pressure this morning was 146/79. Laboratory results show a WBC count of 13.6 which is slightly higher from yesterday, hemoglobin 7.6, hematocrit 23.8, platelets 335, sodium 130, potassium 3.8, magnesium 1.9, BUN 14 and creatinine 0.64. Objective - Vital Signs Vital signs: Vital Signs Temp 97.7 F 08/17/20 04:00 Pulse 88 08/17/20 08:17 Resp 20 08/17/20 04:00 BP 146/79 08/17/20 04:00 Pulse Ox 95 08/17/20 04:00 Intake & Output 08/16/20 08/17/20 08/17/20 18:59 06:59 18:59 Intake Total 1560 400 236 Output Total 400 420 Balance 1160 -20 236 Weight 88.4 kg Intake: Intake, IV Titration 400 Amount Potassium Chloride 10 meq 400 In Water For Injection 1 100ml.bag @ 100 mls/hr IVPB Q1HR [facility] Rx#: [id number] Oral 1560 236 Output: Urine 400 420 Other: Voiding Method Toilet Toilet # Voids 1 # Bowel Movements 1 1 ABP, PAP, CO, CI - Last Documented Arterial Blood Pressure 95/50 Pulmonary Artery Pressure 37/16 Cardiac Output 6 Cardiac Index 3.4 - Constitutional General appearance: Present: cooperative, no acute distress, obese - EENT Eyes: Present: normal appearance. Absent: scleral icterus ENT: Present: hearing grossly normal, thrush - Neck Details: Neck is supple, no JVD. - Respiratory Details: Lung sounds are essentially clear throughout with some few scattered expiratory wheezes, diminished bilateral bases. Respirations are symmetrical and nonlabored. Oxygen saturation are 95% on room air and she is achieving 1000 mL on her incentive spirometry with encouragement. - Cardiovascular Details: Regular rhythm and rate. S1 and S2 present, negative for S3, gallop or murmur. Sternum is stable. Remote telemetry showing normal sinus rhythm heart rate 88 BPM. Surgical support bra in place, heart hugger is in place and she is dem onstrating appropriate use. Knee-high ANGEL hose and sequential compression devices in place to bilateral lower extremities. Trace edema to her bilateral lower extremities. - Gastrointestinal Gastrointestinal Comment(s): Abdomen is soft, nontender and nondistended. Active bowel sounds present in all 4 abdominal quadrants. No guarding or rigidity. Tolerating oral intake. Bowel movement yesterday 08/16/2020. - Genitourinary Genitourinary Comment(s): Continues to void. - Integumentary Integumentary Comment(s): Skin is warm and dry. No clubbing or cyanosis is present. Midline sternal incision is clean, dry and approximated. No drainage or redness is present. Left lower extremity EVH site clean, dry and approximated. No drainage or redness is present. - Neurologic Neurologic: Present: CNII-XII intact. Absent: focal deficits - Musculoskeletal Musculoskeletal: Present: gait normal, generalized weakness, strength equal bilaterally - Psychiatric Psychiatric: Present: A&O x's 3, appropriate affect, intact judgment & insight - Allied health notes Allied health notes reviewed: nursing - Labs CBC & Chem 7: 08/17/20 06:02 08/17/20 06:02 Labs: Abnormal Lab Results - Last 24 Hours (Table) 08/16/20 08/16/20 08/16/20 Range/Units 12:11 16:30 17:03 WBC (3.8-10.6) k/uL RBC (3.80-5.40) m/uL Hgb (11.4-16.0) gm/dL Hct (34.0-46.0) % Sodium (137-145) mmol/L Potassium 3.1 L (3.5-5.1) mmol/L Chloride (98-107) mmol/L Glucose (74-99) mg/dL POC Glucose (mg/dL) 126 H 119 H (75-99) mg/dL 08/16/20 08/17/20 08/17/20 Range/Units 20:23 01:23 01:25 WBC (3.8-10.6) k/uL RBC (3.80-5.40) m/uL Hgb (11.4-16.0) gm/dL Hct (34.0-46.0) % Sodium 128 L (137-145) mmol/L Potassium (3.5-5.1) mmol/L Chloride 94 L (98-107) mmol/L Glucose 112 H (74-99) mg/dL POC Glucose (mg/dL) 119 H 115 H (75-99) mg/dL 08/17/20 08/17/20 08/17/20 Range/Units 05:09 06:02 06:02 WBC 13.6 H (3.8-10.6) k/uL RBC 2.57 L (3.80-5.40) m/uL Hgb 7.6 L (11.4-16.0) gm/dL Hct 23.8 L (34.0-46.0) % Sodium 130 L (137-145) mmol/L Potassium (3.5-5.1) mmol/L Chloride 93 L (98-107) mmol/L Glucose 104 H (74-99) mg/dL POC Glucose (mg/dL) 121 H (75-99) mg/dL 08/17/20 08/17/20 Range/Units 06:04 08:15 WBC (3.8-10.6) k/uL RBC (3.80-5.40) m/uL Hgb (11.4-16.0) gm/dL Hct (34.0-46.0) % Sodium (137-145) mmol/L Potassium (3.5-5.1) mmol/L Chloride (98-107) mmol/L Glucose (74-99) mg/dL POC Glucose (mg/dL) 123 H 132 H (75-99) mg/dL - Imaging and Cardiology Chest x-ray: report reviewed, image reviewed Assessment and Plan Assessment: 1. 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 Preoperative hyponatremia, sodium level 120 just prior to admission, resolved 3. History of pulmonary fibrosis, asthma 4. Hypertension 5. Hyperlipidemia, treated, cholesterol 186, LDL 98 6. Previous tobacco dependence, preoperative FEV1 107% 7. Obesity 8. Osteoarthritis 9. Cervical stenosis post anterior cervical decompression, discectomy and fusion 10. TIA as a child around age 11 11. Family history of premature coronary artery disease with father diagnosed in his early 50s 12. Postoperative acute blood loss anemia, expected, status post transfusion 13. Postoperative hypotension, expected 14. Candidal stomatitis 15. Postoperative urinary retention, resolved Plan: 1. Continue aspirin, statin, Plavix, and beta sisi. Will increase metoprolol tartrate as tolerated. 2. Continue Diflucan for oral thrush, managed by primary care service. 3. Encourage incentive spirometry is 10 times every hour while awake. Bronchodilators per pulmonology/critical care management. 4. Increase activity, ambulate as tolerated. PT/OT/cardiac rehab following. 5. Will monitor daily labs and chest x-rays. Electrolyte replacement per protocol, magnesium and potassium replaced this a.m. No further transfusion at this point. 6. GI/DVT prophylaxis 7. Insulin management per primary care service. Patient is not diabetic, hemoglobin A1c 5.5%. 8. Strict accurate intake and output. Daily weights. 9. Continue to bladder scan every 6 hours and when necessary, straight cath for greater than 300 mL residual. Urology consult noted and appreciated. 10. Lasix 40 mg IV 1 now. 11. Discharge planning is in place, anticipate discharge home with home health care versus inpatient rehab within the next 24-[address] Robertson has been consulted. 12. Send UA with reflex culture, WBC count up to 13.6 today. Patient remains afebrile. 13. More recommendations to follow based on patient's clinical course. Time with Patient: Greater than 30
--- NOTE | 2020-08-17 08:36 | XR ---
EXAMINATION TYPE: XR chest 2V DATE OF EXAM: 08/17/2020 COMPARISON: Prior chest x-ray 08/16/2020 HISTORY: Postop coronary artery bypass graft TECHNIQUE: Frontal and lateral views of the chest are obtained. FINDINGS: There are overlying artifacts. Patient is post median sternotomy and left atrial appendage clipping placement. There is blunting the costophrenic angles, prominence of the interstitium and ce ntral vascularity. No evident pneumothorax. Cardiomediastinal silhouette is stable. Postop changes ar e noted to the cervical spine. IMPRESSION: There may be a component of pulmonary venous hypertension and interstitial edema, volume overload in a patient with pre-existing COPD, findings similar to prior exam and may reflect underly ing interstitial lung disease, difficult to exclude effusions
[2020-08-17] MEDS: ASPIRIN 325 MG TAB PO SCH (08:40)
[2020-08-17] MEDS: guaiFENesin-DM 600/30MG 1 EACH TAB.ER.12H PO SCH ×2 (08:40→21:22)
[2020-08-17] MEDS: MAGNESIUM SULFATE-D5W PMX 1 GM in DEXTROSE/WATER 1 100ML.BAG IVPB SCH ×2 (08:40→10:29)
[2020-08-17] MEDS: HEPARIN SODIUM,PORCINE 5,000 UNIT/ML 1 ML VIAL SQ SCH ×3 (08:40→23:33)
[2020-08-17] MEDS: FLUCONAZOLE 100 MG TAB PO SCH (08:41)
[2020-08-17] MEDS: NYSTATIN 100,000 UNIT/ML SUSP 500,000 UNIT/5 ML CUP PO SCH ×4 (08:41→20:43)
[2020-08-17] MEDS: CLOPIDOGREL 75 MG TAB PO SCH (08:41)
[2020-08-17] MEDS: METOPROLOL TARTRATE 25 MG TAB PO SCH ×2 (08:41→20:43)
[2020-08-17] MEDS: ATORVASTATIN 40 MG TAB PO SCH (08:41)
--- NOTE | 2020-08-17 09:34 | P.PN ---
Subjective Progress Note Date: 08/17/20 75-year-old female who was admitted to the hospital on August 06. She came in because her sodium was low. I saw the patient in the office for preop clearance in anticipation of bypass grafting. She actually had the surgery today. Currently, she is on the volume assist control mode, rate of 12, tidal volume 350, FiO2 70%, and a PEEP of 5. Plendil same settings but 100%, the pO2 was 243, the pCO2 is 44, and a pH of 7.34. She is currently on saline at 50 mL an hour, nitroglycerin at 5 mcg/m, propofol has been turned off, and she is on norepinephrine at 5 mcg/m. She apparently had a two-vessel bypass grafting. She has a history of hyperlipidemia, hypertension, CAD, skin cancer, arthritis, and possible TIA. In addition, I saw her in the distant past for some interstitial lung disease/pulmonary fibrosis. The patient did have a complete pulmonary function test in my office. The patient's lung function including the FEV1, MVV, and RV/TLC ratio were all excellent. Based on her numbers, I thought she was at low increased operative risk. This was passed onto the cardiothoracic team. The patient surgery included a bypass graft using the left internal mammary artery to the left anterior descending coronary artery, and a reverse saphenous vein graft from aorta to the first obtuse marginal artery. She also had exclusion of the left atrial appendage using a 35 mm AtriClip, endoscopic harvesting of the left greater saphenous vein, intraoperative graft flow measurements using the Medi-Stim system and intraoperative transesophageal echocardiogram. Progress note dated 08/11/2020. 75-year-old female postop day #2, status post two-vessel bypass grafting. Currently, the patient is doing relatively well. She is on 2 L nasal cannula. She is getting lactated Ringer's at 50 mL an hour, norepinephrine at 8.2 mcg/m, insulin at 0.5 units an hour. She was extubated about 4-1/2 hours after leaving the operating room. She had a pretty uneventful night according to her nurse. Her chest x-rays reviewed. This shows typical postoperative changes. I did a preop evaluation on her, and her lung function is mentioned in my consultation were excellent. She does have a history of underlying mild pulmonary fibrosis/interstitial lung disease. Currently, her white count is 7.9, hemo globin 7.2, hematocrit 20.4, and platelet count 109,000. PT is 12.1, INR 1.2, PTT 41.1. Her last blood gases prior to extubation show a PaO2 of 114, PaCO2 of 43, and a pH of 7.37. Sodium is 133, potassium 4.3, chlorides 104, CO2 24, anion gap 5, BUN 13, and creatinine 0.63. Albumin is 2.9. Calcium is 7.7. Ionized calcium is normal. On 08/12/2020 patient seen in follow-up in the intensive care unit, she is awake and alert, she is in no acute distress, today is postoperative day 3 status post two-vessel bypass grafting. She is currently on 2 L of oxygen pulse ox of 90%, vital signs have been stable. Patient is working on incentive spirometer, today's chest x-ray has been reviewed showing a component of interstitial edema, basilar atelectasis versus edema, relatively stable exam. Patient remains on vasopressor support in the form of the fat currently running at 13 mics per minute, and she did require volume in the form of 5% albumin ordered by cardiothoracic surgery. She received a total of thousand mL of 5% albumin yesterday, with additional 250 of albumin this morning. Patient is significantly positive terms of her weight, +14 kg since admission. Patient still has mediastinal chest tube in place with a total of 370 of thin serosanguineous fluid in the last 24 hours, and left lateral chest tube put out 810 of fluid. Patient's 0.9 normal saline is running at 20 ML per hour. The patient is seen today 08/13/2020 in follow-up in the intensive care unit. Postoperative day #4. She is awake and alert in no acute distress. Currently sitting up in a chair at the bedside. She is maintaining O2 saturations in the 90s on 2 L/m per nasal cannula. Only pulling approximately 500 ML's on the incentive spirometer. Left pleural chest tube remains in place. Chest x-ray reveals evidence of basilar atelectasis and some fluid volume overload. Hemodynamically stable and currently off pressors. Status post 1 unit of packed red blood cells this admission. Current hemoglobin 7.0. Platelet count 107. 7.4. Sodium 130. Potassium 4.3. Creatinine 0.86. Magnesium 2.4. Albumin 2.7. The patient is seen today 08/15/2020 in follow-up on the elective care unit. She is currently sitting up in a chair at the bedside. Awake and alert in no acute distress. This is postoperative day #6. Denies any worsening shortness of breath, cough or congestion. She is maintaining O2 saturations in the 90s on room air. She's working well with the incentive spirometer. She's been up with assistance. Chest x-ray revealed cardiomegaly with small effusions and pulmonary venous congestion with scattered infiltrates. White count 10.0. Hemoglobin 7.4. Sodium 136. Potassium 3.5. Creatinine 0.63. She remains on bronchodilators. Heparin for DVT prophylaxis. The patient is seen today 08/16/2020 in follow-up on the selective care unit. She is awake and alert in no acute distress. She's been up ambulating in the hallway without any acute distress. She is maintaining good O2 saturations in the 90s on room air. She is doing better with her incentive spirometer. No pulmonary complaints. Chest x-ray showing improved pulmonary vascular congestion. Continue cardiomegaly with small effusions and scattered infiltrates. She is status post 1 unit of packed red blood cells this admission. Current hemoglobin 7.6. White count 11.3. Sodium 134. Potassium 3.5. Creatinine 0.64. Magnesium 1.8. Magnesium being replaced. She was given Lasix 40 mg IVP 1 today. Remains on bronchodilators On 08/17/2020 station for a follow-up H is on room air oxygen. She is ambulating. She is compensated with limited amount of inspiratory efforts, she goes into coughing spells. On today's chest x-ray, the patient has small bilateral pleural effusion, pulmonary vessel congestion and cardiomegaly. She'll be given another dose of Lasix. Otherwise, the patient has a clear wound and the chest wound is dry clean and intact. No fever or chills. She was given Mucinex DM for cough. The white cell count at 15.6 with a hemoglobin of 7.6 which is stable compared to yesterday. Renal function stable. Sodium is at 1:30. Cardiac rhythm is sinus. She remains on aspirin, Plavix, Cozaar 25 mg by mouth daily, metoprolol 75 mg by mouth twice a day and statins. The epicardial pacemaker wires have been removed. The patient is using incentive spirometer. She is having bladder scans every 6 hours. No other significant issues otherwise for now. Objective - Vital Signs Vital signs: Vital Signs Temp 97.8 F 08/17/20 08:38 Pulse 89 08/17/20 08:38 Resp 20 08/17/20 08:38 BP 149/73 08/17/20 08:38 Pulse Ox 94 L 08/17/20 08:38 Intake & Output 08/16/20 08/17/20 08/17/20 18:59 06:59 18:59 Intake Total 1560 400 236 Output Total 400 420 Balance 1160 -20 236 Weight 88.4 kg Intake: Intake, IV Titration 400 Amount Potassium Chloride 10 meq 400 In Water For Injection 1 100ml.bag @ 100 mls/hr IVPB Q1HR [facility] Rx#: [id number] Oral 1560 236 Output: Urine 400 420 Other: Voiding Method Toilet Toilet # Voids 1 # Bowel Movements 1 1 ABP, PAP, CO, CI - Last Documented Arterial Blood Pressure 95/50 Pulmonary Artery Pressure 37/16 Cardiac Output 6 Cardiac Index 3.4 - Exam GENERAL EXAM: Alert, 75-year-old female patient, up in a chair at the bedside, on room air, comfortable in no apparent distress. HEAD: Normocephalic. EYES: Normal reaction of pupils, equal size. NOSE: Clear with pink turbinates. THROAT: No erythema or exudates. NECK: No masses, no JVD. CHEST: Sternal dressing dry and intact. Heart hugger in place. LUNGS: Equal air entry with bibasilar crackles. CVS: S1 and S2 normal with no audible murmur, regular rhythm. ABDOMEN: No hepatosplenomegaly, normal bowel sounds, no guarding or rigidity. SPINE: No scoliosis or deformity SKIN: No rashes CENTRAL NERVOUS SYSTEM: No focal deficits, tone is normal in all 4 extremities. EXTREMITIES: There is trace peripheral edema. No clubbing, no cyanosis. Per ipheral pulses are intact. - Labs CBC & Chem 7: 08/17/20 06:02 08/17/20 06:02 Labs: Abnormal Lab Results - Last 24 Hours (Table) 08/16/20 08/16/20 08/16/20 Range/Units 12:11 16:30 17:03 WBC (3.8-10.6) k/uL RBC (3.80-5.40) m/uL Hgb (11.4-16.0) gm/dL Hct (34.0-46.0) % Sodium (137-145) mmol/L Potassium 3.1 L (3.5-5.1) mmol/L Chloride (98-107) mmol/L Glucose (74-99) mg/dL POC Glucose (mg/dL) 126 H 119 H (75-99) mg/dL 08/16/20 08/17/20 08/17/20 Range/Units 20:23 01:23 01:25 WBC (3.8-10.6) k/uL RBC (3.80-5.40) m/uL Hgb (11.4-16.0) gm/dL Hct (34.0-46.0) % Sodium 128 L (137-145) mmol/L Potassium (3.5-5.1) mmol/L Chloride 94 L (98-107) mmol/L Glucose 112 H (74-99) mg/dL POC Glucose (mg/dL) 119 H 115 H (75-99) mg/dL 08/17/20 08/17/20 08/17/20 Range/Units 05:09 06:02 06:02 WBC 13.6 H (3.8-10.6) k/uL RBC 2.57 L (3.80-5.40) m/uL Hgb 7.6 L (11.4-16.0) gm/dL Hct 23.8 L (34.0-46.0) % Sodium 130 L (137-145) mmol/L Potassium (3.5-5.1) mmol/L Chloride 93 L (98-107) mmol/L Glucose 104 H (74-99) mg/dL POC Glucose (mg/dL) 121 H (75-99) mg/dL 08/17/20 08/17/20 Range/Units 06:04 08:15 WBC (3.8-10.6) k/uL RBC (3.80-5.40) m/uL Hgb (11.4-16.0) gm/dL Hct (34.0-46.0) % Sodium (137-145) mmol/L Potassium (3.5-5.1) mmol/L Chloride (98-107) mmol/L Glucose (74-99) mg/dL POC Glucose (mg/dL) 123 H 132 H (75-99) mg/dL Assessment and Plan Plan: 1 Coronary artery disease including left main disease, status post coronary artery revascularization on 08/10/2020.The patient had a left internal mammary artery to the left anterior descending coronary artery, and a reverse saphenous vein graft from aorta to the first obtuse marginal artery. She also had exclusion of the left atrial appendage using a 35 mm AtriClip, endoscopic harvesting of the left greater saphenous vein, intraoperative graft flow measurements using the AquaHydrate-Stim system and intraoperative transesophageal echocardiogram. Patient is post op day #8 2 Hyponatremia suspect secondary to hypovolemia and thiazide diuretics. Corrected, current sodium 130 3 History of mild pulmonary fibrosis dating back to 2016. FEV1 value 101% of predicted. 4 Obesity 5 Hypertension 6 Hyperlipidemia 7 Arthritis 8 Former smoker 9 chronic cough 10 history of TIAs very young age 11 history of cervical stenosis with anterior cervical decompression discectomy and fusion Plan: Chest x-ray and labs reviewed with the patient continues to have small bilateral pleural effusion along with cardiomegaly and pulmonary vessel congestion. Continue using incentive spirometer. Coughing remains an ongoing issue and the patient will be given Mucinex DM for cough and congestion. Lasix 40 mg IV push Monitor sodium level Continue aspirin and Plavix and metoprolol and losartan We will continue to follow
[2020-08-17 10:32] LABS: Appearance,Urine Clear (Clear); Bilirubin,Urine Negative (Negative); Blood,Urine Negative (Negative); Color,Urine Light Yellow; Glucose,Urine (UA) Negative (Negative); Ketones,Urine Negative (Negative); Leukocyte Esterase,Urine Negative (Negative); Nitrite,Urine Negative (Negative); PH, Urine 5.5 (5.0-8.0); Protein,Urine Negative (Negative); Urobilinogen,Urine <2.0 mg/dL (<2.0)
[2020-08-17] MEDS: BENZOCAINE/MENTHOL LOZENG 1 EACH LOZENGE MUCOUS MEM PRN ×2 (10:44→18:56)
[2020-08-17] MEDS: LOSARTAN 25 MG TAB PO SCH (11:49)
[2020-08-17] MEDS: ASCORBIC ACID 500 MG TAB PO SCH (11:49)
[2020-08-17] MEDS: FERROUS SULFATE 325 MG TAB PO SCH (11:49)
[2020-08-17 12:05] LABS: Glucose,Whole Blood 216 mg/dL (75-99)
--- NOTE | 2020-08-17 14:54 | P.PN ---
Subjective Progress Note Date: 08/17/20 HISTORY OF PRESENT ILLNESS: Patient is status post CABG 2. Patient examined this morning. She is sitting up in the chair. She denies chest pain or pressure. She denies shortness of breath at rest but states she does have some dyspnea with exertion. Patient states she has been ambulating in the hallway PHYSICAL EXAM: VITAL SIGNS: Reviewed. GENERAL: Well-developed in no acute distress. NECK: Supple. No JVD or thyromegaly LUNGS: Respirations even and unlabored. Lungs diminished bilaterally. HEART: Regular rate and rhythm. S1 and S2 heard. Sternal incision clean and dry without drainage. EXTREMITIES: Normal range of motion. No clubbing or cyanosis. Peripheral pulses intact. 1+ bilateral lower extremity edema ASSESSMENT: Coronary artery disease, s/p CABG x 2 Hypertension Hyperlipidemia Pulmonary fibrosis Obesity: BMI 38.1 PLAN: Continue postoperative management per CTS Continue current cardiac medications Increase activity as tolerated Encouraged use of IS Further recommendations pending patient course Nurse practitioner note has been reviewed by physician. Signing provider agrees with the documented findings, assessment, and plan of care. Objective - Vital Signs Vital signs: Vital Signs Temp 97.5 F L 08/17/20 11:48 Pulse 81 08/17/20 11:48 Resp 18 08/17/20 13:37 BP 106/62 08/17/20 11:48 Pulse Ox 92 L 08/17/20 11:48 Intake & Output 08/16/20 08/17/20 08/17/20 18:59 06:59 18:59 Intake Total 1560 400 476 Output Total 043 044 7141 Balance 1160 -20 -1226 Weight 88.4 kg Intake: Intake, IV Titration 400 Amount Potassium Chloride 10 meq 400 In Water For Injection 1 100ml.bag @ 100 mls/hr IVPB Q1HR [facility] Rx#: [id number] Oral 1560 476 Output: Urine 400 420 850 Post Void Residual 852 Other: Voiding Method Toilet Toilet Toilet # Voids 1 # Bowel Movements 1 1 ABP, PAP, CO, CI - Last Documented Arterial Blood Pressure 95/50 Pulmonary Artery Pressure 37/16 Cardiac Output 6 Cardiac Index 3.4 - Labs CBC & Chem 7: 08/17/20 06:02 08/17/20 06:02 Labs: Abnormal Lab Results - Last 24 Hours (Table) 08/16/20 08/16/2008/16/21 Range/Units 16:30 17:03 20:23 WBC (3.8-10.6) k/uL RBC (3.80-5.40) m/uL Hgb (11.4-16.0) gm/dL Hct (34.0-46.0) % Sodium (137-145) mmol/L Potassium 3.1 L (3.5-5.1) mmol/L Chloride (98-107) mmol/L Glucose (74-99) mg/dL POC Glucose (mg/dL) 119 H 119 H (75-99) mg/dL 08/17/20 08/17/20 08/17/20 Range/Units 01:23 01:25 05:09 WBC (3.8-10.6) k/uL RBC (3.80-5.40) m/uL Hgb (11.4-16.0) gm/dL Hct (34.0-46.0) % Sodium 128 L (137-145) mmol/L Potassium (3.5-5.1) mmol/L Chloride 94 L (98-107) mmol/L Glucose 112 H (74-99) mg/dL POC Glucose (mg/dL) 115 H 121 H (75-99) mg/dL 08/17/20 08/17/20 08/17/20 Range/Units 06:02 06:02 06:04 WBC 13.6 H (3.8-10.6) k/uL RBC 2.57 L (3.80-5.40) m/uL Hgb 7.6 L (11.4-16.0) gm/dL Hct 23.8 L (34.0-46.0) % Sodium 130 L (137-145) mmol/L Potassium (3.5-5.1) mmol/L Chloride 93 L (98-107) mmol/L Glucose 104 H (74-99) mg/dL POC Glucose (mg/dL) 123 H (75-99) mg/dL 08/17/20 08/17/20 Range/Units 08:15 11:59 WBC (3.8-10.6) k/uL RBC (3.80-5.40) m/uL Hgb (11.4-16.0) gm/dL Hct (34.0-46.0) % Sodium (137-145) mmol/L Potassium (3.5-5.1) mmol/L Chloride (98-107) mmol/L Glucose (74-99) mg/dL POC Glucose (mg/dL) 132 H 216 H (75-99) mg/dL
--- NOTE | 2020-08-17 15:22 | P.PN ---
Subjective Progress Note Date: 08/17/20 This is a 75-year-old female patient of Dr. Avila and Dr. Garcia with a past medical history of pulmonary fibrosis, asthma, hypertension, hyperlipidemia, obesity, osteoarthritis, cervical stenosis status post anterior cervical decompression, discectomy and fusion. Patient recently underwent stress testing which demonstrated anterior wall ischemia with small reversible defect. It was recommended to undergo heart catheterization which was completed and showed calcified coronary artery, significant distal left main by IVUS, mild to moderate disease of the left anterior descending artery. Transthoracic echo was completed showed EF of 55%, mild mitral regurgitation, mild tricuspid regurgitation. Patient was then referred for coronary artery bypass grafting. During her outpatient preoperative workup patient was noted to have hyponatremia with sodium level of 120. She was advised to go to the emergency department to be admitted to correct her sodium level. Patient reports she's asymptomatic, she denies any chest pain, palpitations, shortness of breath, fever, chills, no nausea, vomiting, diarrhea, or diarrhea. Consult placed for nephrology, she was started on 0.9 normal saline at 75 mL per hour. 08/07: Patient has been afebrile, heart rate 62, blood pressure 132/70, pulse ox 90% on room air. Sodium today is at 125. Potassium 4.0, chloride 90, CO2 20, BUN 20 creatinine 0.7. Patient is followed by nephrology and received sodium chloride tablet 2 g once this morning. Repeat sodium level at 2 PM, cortisol level ordered and TSH. Patient states that she is feeling well today. She denies any lightheadedness or dizziness. No chest pain or shortness of breath. She is scheduled for open heart surgery on Monday and anticipates that she will be here through the weekend. 08/08 sodium is much better, instructions were for discontinuation of IV fluids, currently running at 75 mL an hour, sodium 135, seen by nephrology, patient is scheduled to have open heart surgery on Monday, and the would consult Dr. Sethi, and Dr. Harrison, who would assist with preop CABG management, patient denies any nausea vomiting, blood pressure is significantly much better today, no chest pain no difficulty breathing, but pressure fluctuates between 99 systolic to 161 systolic, heart rate stable at 60-69, creatinine at 0.08 urinalysis negative, patient continues to be off hydrochlorothiazide 08/09 patient feels well today, no new concerns of chest pain shortness of breath no lightheadedness no dizziness, no GI losses no pleurisy, no dysuria. Patient's serum sodium is 138, electrolytes are normal creatinine is 0.8, expected to proceed with CABG as scheduled for August 10Monday morning. board, comes felt with cardiology to assist with postcardiac management in the morning. She will be made nothing by mouth post midnight tonight 08/10: Patient is gone this morning for CABG. Patient was not seen and evaluated at this time. 08/11: Patient is status post CABG, left internal mammary artery to the left anterior descending artery, reverse saphenous vein graft from the aorta to the first obtuse marginal artery, postop day #1. Patient was successfully extubated. Patient is seen today in the intensive care unit. Patient complains of generalized fatigue and weakness. Temperature max 100.6, heart rate in the 70s and 80s, respiratory rate 25, blood pressure 91/39, pulse ox 93% on 2 L nasal cannula. WBC 7.9, hemoglobin 7.2, platelet count 109. INR is 1.2. Sodium 133 otherwise elect lites are normal, creatinine 0.63. Total bilirubin 0.6. AST 37, lymphocytes 26. Repeat chest x-ray reveals difficult to exclude component of volume overload, interstitial edema, there may be basilar atelectasis versus edema, associated effusion. Patient is reaching 500 on incentive spirometry. 08/12: Patient remains in the intensive care unit and looks more comfortable today. Patient is resting in a chair. Her pulse ox is running 88-90% on 2 L but respiratory status appears stable. She's been afebrile, heart rate in the 80s, blood pressure 111/47. Blood sugars have been running 107-133. Insulin drip will be discontinued and patient placed on NovoLog scale every 4 hours until nighttime and transition to before meals at bedtime. Norepinephrine to be weaned. IV lasix was ordered this morning. WBC 11.7, hemoglobin 7.3, platelet count 112. Sodium 131, creatinine 0.82. Mediastinal chest tube to be removed today and Yu to be removed today. 08/13: Patient remains in the intensive care unit. She appears to be comfortable. She is found sitting up in chair. No shortness of breath. She has occasional cough. She is working on incentive spirometry. Patient has been afebrile, heart rate 100, blood pressure 101/53, pulse ox 97% on 2 L nasal cannula. threat monitoring analyst sinus rhythm. WBC 7.4, hemoglobin 7, platelet count 107. Sodium 130, potassium 4.3, chloride 103, CO2 25, BUN 21 and creatinine 0.86. Blood sugar 104. Capillary blood glucose running between 104 and 134. Repeat chest x-ray reveals no evident complications status post chest tube removal. Persistent atelectatic changes. Cardiac megaly. Postop changes. Patient received 1 dose of IV Lasix this morning. Yu catheter was removed yesterday and patient has been straight cathed this morning. Right Cordis to be removed. 08/14: Patient is seen today in the intensive care unit. She states she is not doing well because she has thrush is having difficulty eating. She was started on nystatin swish and swallow this morning. He has been afebrile, heart rate 96, blood pressure 133/68, pulse ox 91% on room air. threat monitoring analyst has been in sinus rhythm. She is reaching 750 on incentive spirometry. WBC 8, hemoglobin 7, creatinine 0.72. Blood sugars running between 108 130. Patient is scheduled to be transferred out of the intensive care unit today. Discussed discharge planning with the patient and inpatient rehab may be a good option for her. Cardiothoracic team to address. 08/15/: She has seen today on . She states that she is having some difficulty breathing with cough and congestion. Remained afebrile, heart rate 102, respirations 18 blood pressure 151/67. Pulse ox a 95% on room. WBCs 10.0, hemoglobin 7.4, potassium 3.5, BUN 18, creatinine 0.63. Blood sugars between 108 and 135. 08/16: Patient was found ambulatory in the ha. Patient states that she is feeling much better, taking his to complain of sore scratchy throat. Denies any difficulty breathing cough or congestion at this time. Patient has been afebrile, pulse rate 96, blood pressure 171/79, pulse ox a 95% on room air. Patient will have pacemaker wires removed today. With anticipation for possible discharge home tomorrow. Additional dose of Lasix given, beta sisi increased to 75 2 times a day. Nystatin swish and swallow given 4 days. We'll add Diflucan for Belen's of the mouth. 08/17: She is seen today on the cardiac stepdown unit. She continues to complain that she has difficulty eating due to thrush. Over the weekend she was changed from nystatin swish and swallow and added Diflucan 100 mg daily. Patient has been afebrile, heart rate 81, blood pressure 106/62, pulse ox 92% on room air. WBC 13.6, hemoglobin 7.6, platelet count 335. Sodium 130, potassium 3.8, chloride 93, CO2 27, BUN 14 and creatinine 0.64. Blood sugars running between 104 and 216. Urinalysis negative for infection. Patient has been seen by Dr. Robertson but no clear plan for discharge to inpatient rehab. Patient is planning to go home in the next day or 2. She states her as they're available to assist her. Patient is reaching 1000 on incentive spirometry. REVIEW OF SYSTEMS Constitutional: Reports fatigue, Denies chills, Denies fever, reports mild fatigue. Ears, nose, mouth and throat: Denies headache, Denies nasal congestion, reports nasal discharge, Denies sinus pain, Denies sinus pressure, reports sore throat, reports thrush Cardiovascular: Reports chest discomfort, Denies edema, Denies irregular heart beat, Denies leg edema, Denies orthopnea, Denies palpitations, Denies shortness of breath, Denies syncope Respiratory: Denies congestion, Denies cough, Denies pain, Denies respiratory infections, Denies wheezing Gastrointestinal: Denies abdominal pain, Denies constipation, Denies diarrhea, Denies dyspepsia, Denies heartburn, Denies hematemesis, Denies loss of appetite, Denies nausea, Denies vomiting Genitourinary: Denies dysuria, Denies hematuria, Denies urgency Musculoskeletal: Denies arm numbness/tingling, Denies atrophy, Denies fractures, Denies frequent falls, Denies gait dysfunction, Denies myalgias, Denies neck pain, Denies neck stiffness Integumentary: Denies dryness, Denies lesions, Denies pruritus, Denies sores, Denies wounds Neurological: Denies confusion, Denies gait dysfunction, Denies headaches, Denies paralysis, Denies seizures, Denies spasticity, Denies syncope, Denies vertigo Psychiatric: Denies anxiety, Denies confusion, Denies irritability, Denies mood swings, Denies paranoia, Denies suicidal ideation Endocrine: Denies excessive sweating, Denies fatigue, Denies high blood sugars, Denies palpitations, Denies polyphagia, Denies polyuria, Denies thyroid mass PHYSICAL EXAMINATION Gen: This is a 75-year-old female. She is sitting up at the edge of the bed and appears to be comfortable and in no acute distress. HEENT: Head is atraumatic, normocephalic. Pupils equal, round. Sclerae is anicteric. Right-sided Cordis in place. Postnasal drip drainage noted, throat shows erythema NECK: Supple. No JVD. No lymphadenopathy. No thyromegaly. LUNGS: Diminished bilaterally. No intercostal retractions. HEART: Regular rate and rhythm. No murmur. left pleural chest tube. ABDOMEN: Soft. Bowel sounds are present. No masses. No tenderness. EXTREMITIES: No pedal edema. No calf tenderness. Dorsalis pedis palpable bilaterally. NEUROLOGICAL: Patient is awake, alert and oriented x3. Cranial nerves 2 through 12 are grossly intact. ASSESSMENT AND PLAN 1. Hyponatremia, resolved. Nephrology is following. 2. Coronary artery disease with left main disease status post CABG. Continue current management per cardiothoracic team. 3. History of pulmonary fibrosis. Continue duo nebs and albuterol 4. Asthma, mild intermittent. Continue ipratropium albuterol nebulizers 5. Hyperlipidemia. Continue statin daily 6. Hypertension. Continue Lopressor 75 mg twice a day 7. GI prophylaxis. Pantoprazole 8. DVT prophylaxis: SCDs 9. Blood sugar management in a nondiabetic. insulin scale ACHS. 10. Pulmonary venous congestion. Repeat chest x-ray, 40 mg Lasix IV. Continue to monitor hemoglobin. 11. Thrush. Diflucan 100 mg daily. Continue with nystatin swish and swallow. Instructed to gargle with warm salt water. DISCHARGE PLAN Home with homecare most likely Impression and plan of care have been directed as dictated by the signing physician. Monica Fragoso nurse practitioner acting as scribe for signing physician. Objective - Vital Signs Vital signs: Vital Signs Temp 97.8 F 08/17/20 08:38 Pulse 89 08/17/20 08:38 Resp 20 08/17/20 08:38 BP 149/73 08/17/20 08:38 Pulse Ox 94 L 08/17/20 08:38 Intake & Output 08/16/20 08/17/20 08/17/20 18:59 06:59 18:59 Intake Total 1560 400 236 Output Total 400 420 Balance 1160 -20 236 Weight 88.4 kg Intake: Intake, IV Titration 400 Amount Potassium Chloride 10 meq 400 In Water For Injection 1 100ml.bag @ 100 mls/hr IVPB Q1HR TORIBIO Rx#: [id number] Oral 1560 236 Output: Urine 400 420 Other: Voiding Method Toilet Toilet # Voids 1 # Bowel Movements 1 1 ABP, PAP, CO, CI - Last Documented Arterial Blood Pressure 95/50 Pulmonary Artery Pressure 37/16 Cardiac Output 6 Cardiac Index 3.4 - Labs CBC & Chem 7: 08/17/20 06:02 08/17/20 06:02 Labs: Abnormal Lab Results - Last 24 Hours (Table) 08/16/20 08/16/20 08/16/20 Range/Units 12:11 16:30 17:03 WBC (3.8-10.6) k/uL RBC (3.80-5.40) m/uL Hgb (11.4-16.0) gm/dL Hct (34.0-46.0) % Sodium (137-145) mmol/L Potassium 3.1 L (3.5-5.1) mmol/L Chloride (98-107) mmol/L Glucose (74-99) mg/dL POC Glucose (mg/dL) 126 H 119 H (75-99) mg/dL 08/16/20 08/17/20 08/17/20 Range/Units 20:23 01:23 01:25 WBC (3.8-10.6) k/uL RBC (3.80-5.40) m/uL Hgb (11.4-16.0) gm/dL Hct (34.0-46.0) % Sodium 128 L (137-145) mmol/L Potassium (3.5-5.1) mmol/L Chloride 94 L (98-107) mmol/L Glucose 112 H (74-99) mg/dL POC Glucose (mg/dL) 119 H 115 H (75-99) mg/dL 08/17/20 08/17/20 08/17/20 Range/Units 05:09 06:02 06:02 WBC 13.6 H (3.8-10.6) k/uL RBC 2.57 L (3.80-5.40) m/uL Hgb 7.6 L (11.4-16.0) gm/dL Hct 23.8 L (34.0-46.0) % Sodium 130 L (137-145) mmol/L Potassium (3.5-5.1) mmol/L Chloride 93 L (98-107) mmol/L Glucose 104 H (74-99) mg/dL POC Glucose (mg/dL) 121 H (75-99) mg/dL 08/17/20 08/17/20 Range/Units 06:04 08:15 WBC (3.8-10.6) k/uL RBC (3.80-5.40) m/uL Hgb (11.4-16.0) gm/dL Hct (34.0-46.0) % Sodium (137-145) mmol/L Potassium (3.5-5.1) mmol/L Chloride (98-107) mmol/L Glucose (74-99) mg/dL POC Glucose (mg/dL) 123 H 132 H (75-99) mg/dL
[2020-08-17] MEDS ORDERED: FUROSEMIDE 10 MG/ML 2 ML VIAL IV ONE (16:00)
--- NOTE | 2020-08-17 16:32 | PN ---
PROGRESS NOTE Patient is seen for followup for hyponatremia. She was initially admitted with hyponatremia and this had resolved with saline administration and a dose of sodium chloride tabs. However, she was noted to be hyponatremic again this morning with sodium at 128. However, it was repeated again this morning and it was at 130. The patient is currently being diuresed for lower extremity edema. She is also maintained on amiodarone. Patient is status post coronary artery bypass surgery, postop day #7. This morning patient is comfortable. Denies any significant complaints. PHYSICAL EXAMINATION: Blood pressure was 149/73, heart rate 84 per minute. She is afebrile. EXAMINATION OF THE HEART: S1, S2. EXAMINATION OF THE LUNGS: Decreased breath sounds at bases. Abdomen is soft. Examination of lower extremity shows edema 2+ bilaterally. PERSONAL [employer] exam grossly intact. LABS: Labs show sodium 130, potassium 3.8, chloride 93, BUN 14, serum creatinine 0.64. Hemoglobin is 7.6 g/dL. ASSESSMENT: 1. Hyponatremia on initial admission, which had resolved. The patient was hyponatremic again. This appears to be hypervolemic. She is maintained on IV Lasix which she should receive on a daily scheduled dose. The hyponatremia has also worsened with the amiodarone which is usually based in D5W. Sodium improved from 128 to 130 and I will maintain her on IV Lasix. 2. Anemia, no active bleeding noted. Hemoglobin is stable at 7.6. Check iron profile if not done this admission. 3. Coronary artery disease, status post coronary artery bypass surgery. PLAN: Continue IV Lasix. Check iron profile and repeat labs in a.m. MMODL / IJN: [id number] /
[2020-08-17 16:43] LABS: Glucose,Whole Blood 122 mg/dL (75-99)
[2020-08-17 18:43] LABS: Magnesium 1.9 mg/dL (1.6-2.3); Potassium 3.4 mmol/L (3.5-5.1)
[2020-08-17] MEDS ORDERED: Potassium Replacement Protocol 1 EACH MISC MISCELLANE PRN (18:49)
[2020-08-17] MEDS: POTASSIUM CHLORIDE ER 20 MEQ TAB.ER PO SCH ×2 (18:56→20:42)
[2020-08-17 20:26] LABS: Glucose,Whole Blood 137 mg/dL (75-99)
[2020-08-17] MEDS: SENNOSIDES-DOCUSATE SODIUM 1 EACH TAB PO SCH (20:43)
[2020-08-17 21:41] LABS: % Iron Saturation 12.44 (12.00-45.00)
[2020-08-18] MEDS: ACETAMINOPHEN TAB 325 MG TAB PO PRN ×5 (03:20→22:42)
[2020-08-18] MEDS: BENZOCAINE/MENTHOL LOZENG 1 EACH LOZENGE MUCOUS MEM PRN ×2 (05:43→12:47)
[2020-08-18 06:07] LABS: Glucose,Whole Blood 114 mg/dL (75-99)
[2020-08-18] MEDS: INSULIN ASPART (NovoLOG) 100 UNIT/ML VIAL SQ SCH ×4 (06:09→20:35)
[2020-08-18] MEDS: PANTOPRAZOLE 40 MG TABLET PO SCH (06:48)
[2020-08-18] MEDS: IPRATROPIUM-ALBUTEROL 3 ML NEB INHALATION SCH ×4 (07:35→20:21)
[2020-08-18 08:12] LABS: Basophils # (A) 0.1 k/uL (0-0.2); Basophils % (A) 0 %; Eosinophils # (A) 0.4 k/uL (0-0.7); Eosinophils % (A) 3 %; HCT 24.5 % (34.0-46.0); HGB 7.9 gm/dL (11.4-16.0); Hypochromasia Slight; Lymphocytes # (A) 2.5 k/uL (1.0-4.8); Lymphocytes % (A) 21 %; MCH 29.7 pg (25.0-35.0); MCHC 32.4 g/dL (31.0-37.0); MCV 91.7 fL (80.0-100.0); Mean Platelet Volume 7.5; Monocytes # (A) 0.8 k/uL (0-1.0); Monocytes % (A) 7 %; Neutrophils % (A) 67 %; Platelet Count 371 k/uL (150-450); Poikilocytosis Slight; RBC 2.67 m/uL (3.80-5.40); RDW 15.5 % (11.5-15.5); WBC 11.9 k/uL (3.8-10.6)
[2020-08-18 08:27] LABS: African American GFR (CKD) >90 (>60 ml/min/1.73 sqM); Anion Gap 10 mmol/L; Blood Urea Nitrogen 13 mg/dL (7-17); Calcium 8.5 mg/dL (8.4-10.2); Carbon Dioxide 26 mmol/L (22-30); Chloride 89 mmol/L (98-107); Glucose 99 mg/dL (74-99); Magnesium 1.8 mg/dL (1.6-2.3); Non-African American GFR(CKD) 89 (>60 ml/min/1.73 sqM); Potassium 3.9 mmol/L (3.5-5.1); Sodium 125 mmol/L (137-145)
[2020-08-18] MEDS ORDERED: POTASSIUM CHLORIDE ER 20 MEQ TAB.ER PO STA (08:32)
[2020-08-18] MEDS: MAGNESIUM SULFATE-D5W PMX 1 GM in DEXTROSE/WATER 1 100ML.BAG IVPB SCH ×2 (08:40→10:15)
[2020-08-18] MEDS: HEPARIN SODIUM,PORCINE 5,000 UNIT/ML 1 ML VIAL SQ SCH ×3 (09:15→22:43)
[2020-08-18] MEDS: ASPIRIN 325 MG TAB PO SCH (09:16)
[2020-08-18] MEDS: ATORVASTATIN 40 MG TAB PO SCH (09:17)
[2020-08-18] MEDS: CLOPIDOGREL 75 MG TAB PO SCH (09:18)
[2020-08-18] MEDS: FUROSEMIDE 10 MG/ML 4 ML VIAL IV SCH (09:19)
[2020-08-18] MEDS: FLUCONAZOLE 100 MG TAB PO SCH (09:19)
[2020-08-18] MEDS: guaiFENesin-DM 600/30MG 1 EACH TAB.ER.12H PO SCH ×2 (09:20→20:35)
[2020-08-18] MEDS: NYSTATIN 100,000 UNIT/ML SUSP 500,000 UNIT/5 ML CUP PO SCH ×4 (09:21→20:36)
[2020-08-18] MEDS: METOPROLOL TARTRATE 25 MG TAB PO SCH ×2 (09:33→22:42)
--- NOTE | 2020-08-18 09:50 | XR ---
EXAMINATION TYPE: XR chest 1V portable DATE OF EXAM: 08/18/2020 COMPARISON: 08/17/2020 HISTORY: Postop CABG TECHNIQUE: Single frontal view of the chest is obtained. FINDINGS: Heart is enlarged and there is postsurgical changes. Postoperative change overlying the ce rvical spine. Arthropathy of the shoulders. Hyperinflation suggests COPD and there is a diffuse inter stitial pattern with bilateral lower lobe infiltrate and small effusion. Underlying COPD suspected. IMPRESSION: 1. Stable x-ray correlate for CHF, otherwise consider interstitial pneumonitis.
[2020-08-18] MEDS ORDERED: SENNOSIDES-DOCUSATE SODIUM 1 EACH TAB PO PRN (10:06)
--- NOTE | 2020-08-18 10:17 | P.PN ---
Subjective Progress Note Date: 08/18/20 Principal diagnosis: Coronary artery disease with left main disease, preserved systolic function, preoperative hyponatremia warranting admission for correction. Previous medical history of pulmonary fibrosis, asthma, hypertension, hyperlipidemia, previous tobacco dependence with preoperative FEV1 107% of predicted, obesity, osteoarthritis, cervical stenosis post anterior cervical decompression with discectomy and fusion, TIA in childhood, and family history of premature sal nary artery disease POD #8 double vessel coronary artery bypass grafting using the left internal ma mmary artery to the left anterior descending artery, reverse saphenous vein graft from the aorta to the first obtuse marginal artery, exclusion of the left atrial appendage using a 35 mm AtriClip, endoscopic harvesting of the left greater saphenous vein from the groin to just below the knee level, i ntraoperative graft flow measurements using the engageSimply system, intraoperative transesophageal echocardiogram and epi-aortic scanning. Postoperative acute blood loss anemia, expected given hemodilution and cardiopulmonary bypass pump Postoperative hypotension requiring vasopressor support, expected vasoplegia due to preoperative ARB use The patient is currently sitting up in a recliner on the cardiac step-down unit in no acute distress. She remains in sinus rhythm, hemodynamically stable. She states postoperative pain is controlled on current medication regimen, states shortness of breath has decreased and is better than prior to surgery. Using incentive spirometry. She has been ambulating in the hallway with standby assist without much difficulty. Has been showering daily. States she wants to go home today. Sodium level 125 today. When asked she does state she has some vision disturbances at night but no other neurological signs or symptoms. Does continue to complain of cough, slightly better with Mucinex although she does state it still feels like she is trying to cough something up that won't come up. Objective - Vital Signs Vital signs: Vital Signs Temp 98.5 F 08/18/20 08:00 Pulse 90 08/18/20 08:00 Resp 17 08/18/20 08:00 BP 114/70 08/18/20 08:00 Pulse Ox 97 08/18/20 08:00 Intake & Output 08/17/20 08/18/20 08/18/20 18:59 06:59 18:59 Intake Total 716 115 Output Total 2102 950 Balance -1386 -950 115 Weight 87.6 kg Intake: Oral 716 115 Output: Urine 1250 950 Post Void Residual 852 Other: Voiding Method Toilet Toilet Toilet # Voids 1 # Bowel Movements 1 ABP, PAP, CO, CI - Last Documented Arterial Blood Pressure 95/50 Pulmonary Artery Pressure 37/16 Cardiac Output 6 Cardiac Index 3.4 - Constitutional General appearance: Present: cooperative, no acute distress - Respiratory Details: Lungs sounds diminished in the bases bilaterally. Respirations even, nonlabored. Currently on room air with oxygen saturation 94%. Able to achieve 1000 mL on incentive spirometry. Strong non-productive cough. - Cardiovascular Details: S1, S2 present. Regular rate and rhythm, sinus rhythm on telemetry with heart rate in the 80s. Sternum stable. Palpable peripheral pulses bilaterally. Trace generalized edema present. No calf pain or tenderness noted. Antiembolism stockings, SCDs present. - Gastrointestinal Gastrointestinal Comment(s): Abdomen soft, nontender, nondistended. Active bowel sounds present 4 quadrants. Tolerating minimal diet. Positive bowel movement - Genitourinary Genitourinary Comment(s): Continues to void clear, yellow urine - Integumentary Integumentary Comment(s): Skin is warm and dry with evidence of good perfusion. Anterior chest incision and left lower extremity EVH site well approximated without redness or drainage. - Neurologic Neurologic: Present: CNII-XII intact - Musculoskeletal Musculoskeletal: Present: gait normal, strength equal bilaterally - Psychiatric Psychiatric: Present: A&O x's 3, appropriate affect, intact judgment & insight - Allied health notes Allied health notes reviewed: nursing - Labs CBC & Chem 7: 08/18/20 07:39 08/18/20 07:39 Labs: Abnormal Lab Results - Last 24 Hours (Table) 08/17/20 08/17/20 08/17/20 Range/Units 06:02 11:59 16:42 WBC (3.8-10.6) k/uL RBC (3.80-5.40) m/uL Hgb (11.4-16.0) gm/dL Hct (34.0-46.0) % Neutrophils # (1.3-7.7) k/uL Sodium (137-145) mmol/L Potassium (3.5-5.1) mmol/L Chloride (98-107) mmol/L POC Glucose (mg/dL) 216 H 122 H (75-99) mg/dL Iron 28 L (50-170) ug/dL TIBC 225 L (228-460) ug/dL 08/17/20 08/17/20 08/18/20 Range/Units 17:54 20:25 06:06 WBC (3.8-10.6) k/uL RBC (3.80-5.40) m/uL Hgb (11.4-16.0) gm/dL Hct (34.0-46.0) % Neutrophils # (1.3-7.7) k/uL Sodium (137-145) mmol/L Potassium 3.4 L (3.5-5.1) mmol/L Chloride (98-107) mmol/L POC Glucose (mg/dL) 137 H 114 H (75-99) mg/dL Iron (50-170) ug/dL TIBC (228-460) ug/dL 08/18/20 08/18/20 Range/Units 07:39 07:39 WBC 11.9 H (3.8-10.6) k/uL RBC 2.67 L (3.80-5.40) m/uL Hgb 7.9 L (11.4-16.0) gm/dL Hct 24.5 L (34.0-46.0) % Neutrophils # 8.0 H (1.3-7.7) k/uL Sodium 125 L (137-145) mmol/L Potassium (3.5-5.1) mmol/L Chloride 89 L (98-107) mmol/L POC Glucose (mg/dL) (75-99) mg/dL Iron (50-170) ug/dL TIBC (228-460) ug/dL - Imaging and Cardiology Chest x-ray: report reviewed, image reviewed Assessment and Plan Assessment: 1. 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 Hyponatremia, sodium level 120 just prior to admission 3. History of pulmonary fibrosis, asthma 4. Hypertension 5. Hyperlipidemia, treated, cholesterol 186, LDL 98 6. Previous tobacco dependence, preoperative FEV1 107% 7. Obesity 8. Osteoarthritis 9. Cervical stenosis post anterior cervical decompression, discectomy and fusion 10. TIA as a child around age 11 11. Family history of premature coronary artery disease with father diagnosed in his early 50s 12. Postoperative acute blood loss anemia, expected, status post transfusion 13. Postoperative hypotension, expected Plan: 1. Continue aspirin, statin, Plavix, Cozaar, beta sisi therapy. Will increase beta sisi therapy as tolerated. 2. Continue Diflucan for oral thrush, managed by primary care service. 3. Encourage incentive spirometry is 10 times every hour while awake. Bronchod ilators per pulmonology 4. Increase activity, ambulate as tolerated. PT/OT/cardiac rehab following 5. Will monitor daily labs and x-rays. Electrolyte replacement per protocol. No further transfusion. Lasix, sodium management per nephrology 6. GI/DVT prophylaxis 7. Insulin management per primary care service. Patient is not diabetic, hemoglobin A1c 5.5% 8. Strict accurate intake and output. Daily weights. May straight cath for urine residual >400 mL. If residual trending up reinsert ponce per urology. 9. Discharge planning in progress. Anticipate discharge to home with home care in the next 24 hours dependent on nephrology recommendations 10. More recommendations to follow Time with Patient: Greater than 30
[2020-08-18] MEDS ORDERED: TOLVAPTAN 15 MG 1/2 TABLET PO ONE (10:30)
--- NOTE | 2020-08-18 11:07 | P.PN ---
Subjective Progress Note Date: 08/18/20 Principal diagnosis: 75-year-old female who was admitted to the hospital on August 06. She came in because her sodium was low. I saw the patient in the office for preop clearance in anticipation of bypass grafting. She actually had the surgery today. Currently, she is on the volume assist control mode, rate of 12, tidal volume 350, FiO2 70%, and a PEEP of 5. Plendil same settings but 100%, the pO2 was 243, the pCO2 is 44, and a pH of 7.34. She is currently on saline at 50 mL an hour, nitroglycerin at 5 mcg/m, propofol has been turned off, and she is on norepinephrine at 5 mcg/m. She apparently had a two-vessel bypass grafting. She has a history of hyperlipidemia, hypertension, CAD, skin cancer, arthritis, and possible TIA. In addition, I saw her in the distant past for some interstitial lung disease/pulmonary fibrosis. The patient did have a complete pulmonary function test in my office. The patient's lung function including the FEV1, MVV, and RV/TLC ratio were all excellent. Based on her numbers, I thought she was at low increased operative risk. This was passed onto the cardiothoracic team. The patient surgery included a bypass graft using the left internal mammary artery to the left anterior descending coronary artery, and a reverse saphenous vein graft from aorta to the first obtuse marginal artery. She also had exclusion of the left atrial appendage using a 35 mm AtriClip, endoscopic harvesting of the left greater saphenous vein, intraoperative graft flow measurements using the Medi-Stim system and intraoperative transesophageal echocardiogram. Progress note dated 08/11/2020. 75-year-old female postop day #2, status post two-vessel bypass grafting. Currently, the patient is doing relatively well. She is on 2 L nasal cannula. She is getting lactated Ringer's at 50 mL an hour, norepinephrine at 8.2 mcg/m, insulin at 0.5 units an hour. She was extubated about 4-1/2 hours after leaving the operating room. She had a pretty uneventful night according to her nurse. Her chest x-rays reviewed. This shows typical postoperative changes. I did a preop evaluation on her, and her lung function is mentioned in my consultation were excellent. She does have a history of underlying mild pulmonary fibrosis/interstitial lung disease. Currently, her white count is 7.9, hemoglobin 7.2, hematocrit 20.4, and platelet count 109,000. PT is 12.1, INR 1.2, PTT 41.1. Her last blood gases prior to extubation show a PaO2 of 114, PaC O2 of 43, and a pH of 7.37. Sodium is 133, potassium 4.3, chlorides 104, CO2 24, anion gap 5, BUN 13, and creatinine 0.63. Albumin is 2.9. Calcium is 7.7. Ionized calcium is normal. On 08/12/2020 patient seen in follow-up in the intensive care unit, she is awake and alert, she is in no acute distress, today is postoperative day 3 status post two-vessel bypass grafting. She is currently on 2 L of oxygen pulse ox of 90%, vital signs have been stable. Patient is working on incentive spirometer, today's chest x-ray has been reviewed showing a component of interstitial edema, basilar atelectasis versus edema, relatively stable exam. Patient remains on vasopressor support in the form of the fat currently running at 13 mics per minute, and she did require volume in the form of 5% albumin ordered by cardiothoracic surgery. She received a total of thousand mL of 5% albumin yesterday, with additional 250 of albumin this morning. Patient is significantly positive terms of her weight, +14 kg since admission. Patient still has mediastinal chest tube in place with a total of 370 of thin serosanguineous fluid in the last 24 hours, and left lateral chest tube put out 810 of fluid. Patient's 0.9 normal saline is running at 20 ML per hour. On 08/14/2020 patient seen in follow-up in intensive care unit, she sits up in the recliner, in no acute distress, she is currently on room air. Pulse ox is 91%, she is working incentive spirometer, she is achieving 750 today, her chest tubes have been removed, her IVs have been hep-locked, she's been hemodynamically stable, chest x-ray has been reviewed showing residual atelectasis, possible small effusion. The patient is seen today 08/15/2020 in follow-up on the elective care unit. She is currently sitting up in a chair at the bedside. Awake and alert in no acute distress. This is postoperative day #6. Denies any worsening shortness of breath, cough or congestion. She is maintaining O2 saturations in the 90s on room air. She's working well with the incentive spirometer. She's been up with assistance. Chest x-ray revealed cardiomegaly with small effusions and pulmonary venous congestion with scattered infiltrates. White count 10.0. Hemoglobin 7.4. Sodium 136. Potassium 3.5. Creatinine 0.63. She remains on bronchodilators. Heparin for DVT prophylaxis. The patient is seen today 08/16/2020 in follow-up on the selective care unit. She is awake and alert in no acute distress. She's been up ambulating in the llway without any acute distress. She is maintaining good O2 saturations in the 90s on room air. She is doing better with her incentive spirometer. No pulmonary complaints. Chest x-ray showing improved pulmonary vascular congestion. Continue cardiomegaly with small effusions and scattered infil trates. She is status post 1 unit of packed red blood cells this admission. Current hemoglobin 7.6. White count 11.3. Sodium 134. Potassium 3.5. Creatinine 0.64. Magnesium 1.8. Magnesium being replaced. She was given Lasix 40 mg IVP 1 today. Remains on bronchodilators On 08/17/2020 station for a follow-up H is on room air oxygen. She is ambulating. She is compensated with limited amount of inspiratory efforts, she goes into coughing spells. On today's chest x-ray, the patient has small bilateral pleural effusion, pulmonary vessel congestion and cardiomegaly. She'll be given another dose of Lasix. Otherwise, the patient has a clear wound and the chest wound is dry clean and intact. No fever or chills. She was given Mucinex DM for cough. The white cell count at 15.6 with a hemoglobin of 7.6 which is stable compared to yesterday. Renal function stable. Sodium is at 1:3 0. Cardiac rhythm is sinus. She remains on aspirin, Plavix, Cozaar 25 mg by mouth daily, metoprolol 75 mg by mouth twice a day and statins. The epicardial pacemaker wires have been removed. The patient is using incentive spirometer. She is having bladder scans every 6 hours. No other significant issues otherwise for now. On 08/18/2020 patient seen in follow-up care unit. Doing of flashing lights, she thinks she has a migraine, slightly nauseous, but no headache per se. She states ever is normal she does get a migraine headache but hasn't had one in a while. Denies any shortness of breath, no chest pain, all chest tubes have been discontinued, Yu has been discontinued, patient has been tolerating ambulation, she is on room air with pulse ox of 97%, she is in sinus mechanism with a controlled rate, she hasn't had a fever or chills, lung sounds are clear, diminished at the bases, and says spirometer effort is 1000 and now on today's exam. Chest x-ray has been reviewed showing his interstitial pattern likely on the basis of fluid overload, patient was given a dose of IV Lasix per CT surgery. Today's labs have been reviewed showing white blood cell count of 11.9, hemoglobin is 7.9, serum sodium is down to 125, patient was given a dose of 12 at 10, we'll place her on 1500 mL water restriction, potassium is 3.9, chloride is 89, BUN of 13 creatinine 0.63. Is clear, without sign of infection. No nausea vomiting or diarrhea. Objective - Vital Signs Vital signs: Vital Signs Temp 98.5 F 08/18/20 08:00 Pulse 90 08/18/20 08:00 Resp 17 08/18/20 08:00 BP 114/70 08/18/20 08:00 Pulse Ox 97 08/18/20 08:00 Intake & Output 08/17/20 08/18/20 08/18/20 18:59 06:59 18:59 Intake Total 716 115 Output Total 2102 950 300 Balance -1386 -950 -185 Weight 87.6 kg Intake: Oral 716 115 Output: Urine 1250 950 300 Post Void Residual 852 Other: Voiding Method Toilet Toilet Toilet # Voids 1 # Bowel Movements 1 ABP, PAP, CO, CI - Last Documented Arterial Blood Pressure 95/50 Pulmonary Artery Pressure 37/16 Cardiac Output 6 Cardiac Index 3.4 - Exam GENERAL EXAM: Alert, very pleasant, 75-year-old white female, room air pulse ox is 91% % comfortable in no apparent distress. HEAD: Normocephalic/atraumatic. EYES: Normal reaction of pupils, equal size. Conjunctiva pink, sclera white. NOSE: Clear with pink turbinates. THROAT: No erythema or exudates. NECK: No masses, no JVD, no thyroid enlargement, no adenopathy. CHEST: No chest wall deformity. Symmetrical expansion. Midsternal incision is clean dry and intact, mediastinal and left pleural chest tube site clean dry and intact LUNGS: Equal air entry with diminished sounds at the bases CVS: Regular rate and rhythm, normal S1 and S2, no gallops, no murmurs, no rubs ABDOMEN: Soft, nontender. No hepatosplenomegaly, normal bowel sounds, no guarding or rigidity. EXTREMITIES: No clubbing, no edema, no cyanosis, 2+ pulses and upper and lower extremities. MUSCULOSKELETAL: Muscle strength and tone normal. SPINE: No scoliosis or deformity SKIN: No rashes CENTRAL NERVOUS SYSTEM: Alert and oriented -3. No focal deficits, tone is normal in all 4 extremities. PSYCHIATRIC: Alert and oriented -3. Appropriate affect. Intact judgment and insight. - Labs CBC & Chem 7: 08/18/20 07:39 08/18/20 07:39 Labs: Abnormal Lab Results - Last 24 Hours (Table) 08/17/20 08/17/20 08/17/20 Range/Units 06:02 11:59 16:42 WBC (3.8-10.6) k/uL RBC (3.80-5.40) m/uL Hgb (11.4-16.0) gm/dL Hct (34.0-46.0) % Neutrophils # (1.3-7.7) k/uL Sodium (137-145) mmol/L Potassium (3.5-5.1) mmol/L Chloride (98-107) mmol/L POC Glucose (mg/dL) 216 H 122 H (75-99) mg/dL Iron 28 L (50-170) ug/dL TIBC 225 L (228-460) ug/dL 08/17/20 08/17/20 08/18/20 Range/Units 17:54 20:25 06:06 WBC (3.8-10.6) k/uL RBC (3.80-5.40) m/uL Hgb (11.4-16.0) gm/dL Hct (34.0-46.0) % Neutrophils # (1.3-7.7) k/uL Sodium (137-145) mmol/L Potassium 3.4 L (3.5-5.1) mmol/L Chloride (98-107) mmol/L POC Glucose (mg/dL) 137 H 114 H (75-99) mg/dL Iron (50-170) ug/dL TIBC (228-460) ug/dL 08/18/20 08/18/20 Range/Units 07:39 07:39 WBC 11.9 H (3.8-10.6) k/uL RBC 2.67 L (3.80-5.40) m/uL Hgb 7.9 L (11.4-16.0) gm/dL Hct 24.5 L (34.0-46.0) % Neutrophils # 8.0 H (1.3-7.7) k/uL Sodium 125 L (137-145) mmol/L Potassium (3.5-5.1) mmol/L Chloride 89 L (98-107) mmol/L POC Glucose (mg/dL) (75-99) mg/dL Iron (50-170) ug/dL TIBC (228-460) ug/dL Assessment and Plan Plan: #1. Status post two-vessel bypass grafting, exclusion of left atrial appendage, and intraoperative transesophageal echocardiogram, postoperative day #8. #2. Hyponatremia, likely hypervolemic #3. Routine postoperative ventilator management, with extubation 4-1/2 hours after leaving the operating room. #4. Acute hypoxic respiratory failure related to hypoventilation, atelectasis and fluid overload #5. Hypotension, likely hypovolemic related to postoperative blood loss anemia, expected outcome of bypass surgery #6. History of stable/mild pulmonary fibrosis, with excellent preoperative lung function, including FEV1, MVV, and RV/TLC ratio. #7. Hyponatremia, improving #8. History of coronary artery disease. #9. History of hyperlipidemia. #10. History of hypertension. #11. History of skin cancer. #12. History of arthritis. #13. Status post bilateral cataract removal with lens implants. #14. History of cervical fusion. Plan: Today's chest x-ray has been reviewed showing interstitial prominence, oxygenation has been stable, no worsening dyspnea, she was given a dose of IV Lasix per CT surgery, her serum sodium when 125, no weakness, no altered mentation, no seizures. We'll place the patient on water restriction of 1.5 L of free water in 24 hours. Patient received a dose of lasix, nephrology is following. No evidence of active infection, urinalysis is clear, no cough, no pulmonary symptoms no fever or chills, only mild elevation of white blood cell count noted on today's labs. Continue to encourage deep breathing and coughing. We'll continue to follow I performed a history & physical examination of the patient and discussed their management with my nurse practitioner, Carolina Post. I reviewed the nurse pr actitioner's note and agree with the documented findings and plan of care. Lung sounds are positive for diminished breath sounds. The findings and the impression was discussed with the patient. I attest to the documentation by the nurse practitioner. Time with Patient: Less than 30
[2020-08-18 11:58] LABS: Glucose,Whole Blood 122 mg/dL (75-99)
[2020-08-18] MEDS: FERROUS SULFATE 325 MG TAB PO SCH (12:42)
[2020-08-18] MEDS: LOSARTAN 25 MG TAB PO SCH (12:42)
[2020-08-18] MEDS: ASCORBIC ACID 500 MG TAB PO SCH (12:42)
--- NOTE | 2020-08-18 14:46 | P.PN ---
Subjective Progress Note Date: 08/18/20 This is a 75-year-old female patient of Dr. Avila and Dr. Garcia with a past medical history of pulmonary fibrosis, asthma, hypertension, hyperlipidemia, obesity, osteoarthritis, cervical stenosis status post anterior cervical decompression, discectomy and fusion. Patient recently underwent stress testing which demonstrated anterior wall ischemia with small reversible defect. It was recommended to undergo heart catheterization which was completed and showed calcified coronary artery, significant distal left main by IVUS, mild to moderate disease of the left anterior descending artery. Transthoracic echo was completed showed EF of 55%, mild mitral regurgitation, mild tricuspid regurgitation. Patient was then referred for coronary artery bypass grafting. During her outpatient preoperative workup patient was noted to have hyponatremia with sodium level of 120. She was advised to go to the emergency department to be admitted to correct her sodium level. Patient reports she's asymptomatic, she denies any chest pain, palpitations, shortness of breath, fever, chills, no nausea, vomiting, diarrhea, or diarrhea. Consult placed for nephrology, she was started on 0.9 normal saline at 75 mL per hour. 08/07: Patient has been afebrile, heart rate 62, blood pressure 132/70, pulse ox 90% on room air. Sodium today is at 125. Potassium 4.0, chloride 90, CO2 20, BUN 20 creatinine 0.7. Patient is followed by nephrology and received sodium chloride tablet 2 g once this morning. Repeat sodium level at 2 PM, cortisol level ordered and TSH. Patient states that she is feeling well today. She denies any lightheadedness or dizziness. No chest pain or shortness of breath. She is scheduled for open heart surgery on Monday and anticipates that she will be here through the weekend. 08/08 sodium is much better, instructions were for discontinuation of IV fluids, currently running at 75 mL an hour, sodium 135, seen by nephrology, patient is scheduled to have open heart surgery on Monday, and the would consult Dr. Sethi, and Dr. Harrison, who would assist with preop CABG management, patient denies any nausea vomiting, blood pressure is significantly much better today, no chest pain no difficulty breathing, but pressure fluctuates between 99 systolic to 161 systolic, heart rate stable at 60-69, creatinine at 0.08 urinalysis negative, patient continues to be off hydrochlorothiazide 08/09 patient feels well today, no new concerns of chest pain shortness of breath no lightheadedness no dizziness, no GI losses no pleurisy, no dysuria. Patient's serum sodium is 138, electrolytes are normal creatinine is 0.8, expected to proceed with CABG as scheduled for August 10Monday morning. board, comes felt with cardiology to assist with postcardiac management in the morning. She will be made nothing by mouth post midnight tonight 08/10: Patient is gone this morning for CABG. Patient was not seen and evaluated at this time. 08/11: Patient is status post CABG, left internal mammary artery to the left anterior descending artery, reverse saphenous vein graft from the aorta to the first obtuse marginal artery, postop day #1. Patient was successfully extubated. Patient is seen today in the intensive care unit. Patient complains of generalized fatigue and weakness. Temperature max 100.6, heart rate in the 70s and 80s, respiratory rate 25, blood pressure 91/39, pulse ox 93% on 2 L nasal cannula. WBC 7.9, hemoglobin 7.2, platelet count 109. INR is 1.2. Sodium 133 otherwise elect lites are normal, creatinine 0.63. Total bilirubin 0.6. AST 37, lymphocytes 26. Repeat chest x-ray reveals difficult to exclude component of volume overload, interstitial edema, there may be basilar atelectasis versus edema, associated effusion. Patient is reaching 500 on incentive spirometry. 08/12: Patient remains in the intensive care unit and looks more comfortable today. Patient is resting in a chair. Her pulse ox is running 88-90% on 2 L but respiratory status appears stable. She's been afebrile, heart rate in the 80s, blood pressure 111/47. Blood sugars have been running 107-133. Insulin drip will be discontinued and patient placed on NovoLog scale every 4 hours until nighttime and transition to before meals at bedtime. Norepinephrine to be weaned. IV lasix was ordered this morning. WBC 11.7, hemoglobin 7.3, platelet count 112. Sodium 131, creatinine 0.82. Mediastinal chest tube to be removed today and Yu to be removed today. 08/13: Patient remains in the intensive care unit. She appears to be comfortable. She is found sitting up in chair. No shortness of breath. She has occasional cough. She is working on incentive spirometry. Patient has been afebrile, heart rate 100, blood pressure 101/53, pulse ox 97% on 2 L nasal cannula. replenisher sinus rhythm. WBC 7.4, hemoglobin 7, platelet count 107. Sodium 130, potassium 4.3, chloride 103, CO2 25, BUN 21 and creatinine 0.86. Blood sugar 104. Capillary blood glucose running between 104 and 134. Repeat chest x-ray reveals no evident complications status post chest tube removal. Persistent atelectatic changes. Cardiac megaly. Postop changes. Patient received 1 dose of IV Lasix this morning. Yu catheter was removed yesterday and patient has been straight cathed this morning. Right Cordis to be removed. 08/14: Patient is seen today in the intensive care unit. She states she is not doing well because she has thrush is having difficulty eating. She was started on nystatin swish and swallow this morning. He has been afebrile, heart rate 96, blood pressure 133/68, pulse ox 91% on room air. replenisher has been in sinus rhythm. She is reaching 750 on incentive spirometry. WBC 8, hemoglobin 7, creatinine 0.72. Blood sugars running between 108 130. Patient is scheduled to be transferred out of the intensive care unit today. Discussed discharge planning with the patient and inpatient rehab may be a good option for her. Cardiothoracic team to address. 08/15/: She has seen today on . She states that she is having some difficulty breathing with cough and congestion. Remained afebrile, heart rate 102, respirations 18 blood pressure 151/67. Pulse ox a 95% on room. WBCs 10.0, hemoglobin 7.4, potassium 3.5, BUN 18, creatinine 0.63. Blood sugars between 108 and 135. 08/16: Patient was found ambulatory in the ha. Patient states that she is feeling much better, taking his to complain of sore scratchy throat. Denies any difficulty breathing cough or congestion at this time. Patient has been afebrile, pulse rate 96, blood pressure 171/79, pulse ox a 95% on room air. Patient will have pacemaker wires removed today. With anticipation for possible discharge home tomorrow. Additional dose of Lasix given, beta sisi increased to 75 2 times a day. Nystatin swish and swallow given 4 days. We'll add Diflucan for Belen's of the mouth. 08/17: She is seen today on the cardiac stepdown unit. She continues to complain that she has difficulty eating due to thrush. Over the weekend she was changed from nystatin swish and swallow and added Diflucan 100 mg daily. Patient has been afebrile, heart rate 81, blood pressure 106/62, pulse ox 92% on room air. WBC 13.6, hemoglobin 7.6, platelet count 335. Sodium 130, potassium 3.8, chloride 93, CO2 27, BUN 14 and creatinine 0.64. Blood sugars running between 104 and 216. Urinalysis negative for infection. Patient has been seen by Dr. Robertson but no clear plan for discharge to inpatient rehab. Patient is planning to go home in the next day or 2. She states her as they're available to assist her. Patient is reaching 1000 on incentive spirometry. 08/18: Patient denies any new complaints. She was being prepared for planned discharge today but sodium is low at 125. Hemoglobin 7.9, WBC 11.9. Blood sugars running between 99 and 137. Nephrology has ordered 1 dose of Samsca to day. Anticipate October discharge home tomorrow. Patient is doing well with PT and OT. REVIEW OF SYSTEMS Constitutional: Reports fatigue, Denies chills, Denies fever, reports mild fatigue. Ears, nose, mouth and throat: Denies headache, Denies nasal congestion, reports nasal discharge, Denies sinus pain, Denies sinus pressure, reports sore throat, reports thrush Cardiovascular: Reports chest discomfort, Denies edema, Denies irregular heart beat, Denies leg edema, Denies orthopnea, Denies palpitations, Denies shortness of breath, Denies syncope Respiratory: Denies congestion, Denies cough, Denies pain, Denies respiratory infections, Denies wheezing Gastrointestinal: Denies abdominal pain, Denies constipation, Denies diarrhea, Denies dyspepsia, Denies heartburn, Denies hematemesis, Denies loss of appetite, Denies nausea, Denies vomiting Genitourinary: Denies dysuria, Denies hematuria, Denies urgency Musculoskeletal: Denies arm numbness/tingling, Denies atrophy, Denies fractures, Denies frequent falls, Denies gait dysfunction, Denies myalgias, Denies neck pain, Denies neck stiffness Integumentary: Denies dryness, Denies lesions, Denies pruritus, Denies sores, Denies wounds Neurological: Denies confusion, Denies gait dysfunction, Denies headaches, Denies paralysis, Denies seizures, Denies spasticity, Denies syncope, Denies vertigo Psychiatric: Denies anxiety, Denies confusion, Denies irritability, Denies mood swings, Denies paranoia, Denies suicidal ideation Endocrine: Denies excessive sweating, Denies fatigue, Denies high blood sugars, Denies palpitations, Denies polyphagia, Denies polyuria, Denies thyroid mass PHYSICAL EXAMINATION Gen: This is a 75-year-old female. She is sitting up in chair and appears to be comfortable and in no acute distress. HEENT: Head is atraumatic, normocephalic. Pupils equal, round. Sclerae is anicteric. NECK: Supple. No JVD. No lymphadenopathy. No thyromegaly. LUNGS: Diminished bilaterally. No intercostal retractions. HEART: Regular rate and rhythm. No murmur. l. ABDOMEN: Soft. Bowel sounds are present. No masses. No tenderness. EXTREMITIES: No pedal edema. No calf tenderness. Dorsalis pedis palpable bilaterally. NEUROLOGICAL: Patient is awake, alert and oriented x3. Cranial nerves 2 through 12 are grossly intact. ASSESSMENT AND PLAN 1. Hyponatremia, resolved. Nephrology is following. Status post Samsca one dose today. 2. Coronary artery disease with left main disease status post CABG. Continue current management per cardiothoracic team. 3. History of pulmonary fibrosis. Continue duo nebs and albuterol 4. Asthma, mild intermittent. Continue ipratropium albuterol nebulizers 5. Hyperlipidemia. Continue statin daily 6. Hypertension. Continue Lopressor 75 mg twice a day 7. GI prophylaxis. Pantoprazole 8. DVT prophylaxis: SCDs 9. Blood sugar management in a nondiabetic. insulin scale ACHS. 10. Pulmonary venous congestion. Repeat chest x-ray, 40 mg Lasix IV. Continue to monitor hemoglobin. 11. Thrush. Diflucan 100 mg daily. Continue with nystatin swish and swallow. Instructed to gargle with warm salt water. DISCHARGE PLAN Home with homecare most likely tomorrow Impression and plan of care have been directed as dictated by the signing physician. Monica Fragoso nurse practitioner acting as scribe for signing physician. Objective - Vital Signs Vital signs: Vital Signs Temp 98.5 F 08/18/20 08:00 Pulse 90 08/18/20 08:00 Resp 17 08/18/20 08:00 BP 114/70 08/18/20 08:00 Pulse Ox 97 08/18/20 08:00 Intake & Output 08/17/20 08/18/20 08/18/20 18:59 06:59 18:59 Intake Total 716 115 Output Total 2102 950 300 Balance -1386 -950 -185 Weight 87.6 kg Intake: Oral 716 115 Output: Urine 1250 950 300 Post Void Residual 852 Other: Voiding Method Toilet Toilet Toilet # Voids 1 # Bowel Movements 1 ABP, PAP, CO, CI - Last Documented Arterial Blood Pressure 95/50 Pulmonary Artery Pressure 37/16 Cardiac Output 6 Cardiac Index 3.4 - Labs CBC & Chem 7: 08/18/20 07:39 08/18/20 07:39 Labs: Abnormal Lab Results - Last 24 Hours (Table) 08/17/20 08/17/20 08/17/20 Range/Units 06:02 11:59 16:42 WBC (3.8-10.6) k/uL RBC (3.80-5.40) m/uL Hgb (11.4-16.0) gm/dL Hct (34.0-46.0) % Neutrophils # (1.3-7.7) k/uL Sodium (137-145) mmol/L Potassium (3.5-5.1) mmol/L Chloride (98-107) mmol/L POC Glucose (mg/dL) 216 H 122 H (75-99) mg/dL Iron 28 L (50-170) ug/dL TIBC 225 L (228-460) ug/dL 08/17/20 08/17/20 08/18/20 Range/Units 17:54 20:25 06:06 WBC (3.8-10.6) k/uL RBC (3.80-5.40) m/uL Hgb (11.4-16.0) gm/dL Hct (34.0-46.0) % Neutrophils # (1.3-7.7) k/uL Sodium (137-145) mmol/L Potassium 3.4 L (3.5-5.1) mmol/L Chloride (98-107) mmol/L POC Glucose (mg/dL) 137 H 114 H (75-99) mg/dL Iron (50-170) ug/dL TIBC (228-460) ug/dL 08/18/20 08/18/20 Range/Units 07:39 07:39 WBC 11.9 H (3.8-10.6) k/uL RBC 2.67 L (3.80-5.40) m/uL Hgb 7.9 L (11.4-16.0) gm/dL Hct 24.5 L (34.0-46.0) % Neutrophils # 8.0 H (1.3-7.7) k/uL Sodium 125 L (137-145) mmol/L Potassium (3.5-5.1) mmol/L Chloride 89 L (98-107) mmol/L POC Glucose (mg/dL) (75-99) mg/dL Iron (50-170) ug/dL TIBC (228-460) ug/dL
--- NOTE | 2020-08-18 14:59 | P.PN ---
Subjective Progress Note Date: 08/18/20 HISTORY OF PRESENT ILLNESS: Patient is status post CABG 2. Patient examined this morning. She is sitting up in the chair. She denies chest pain or pressure. She denies shortness of breath. Patient has been ambulating in the hallway. Vital signs stable. PHYSICAL EXAM: VITAL SIGNS: Reviewed. GENERAL: Well-developed in no acute distress. NECK: Supple. No JVD or thyromegaly LUNGS: Respirations even and unlabored. Lungs diminished bilaterally. HEART: Regular rate and rhythm. S1 and S2 heard. Sternal incision clean and dry without drainage. EXTREMITIES: Normal range of motion. No clubbing or cyanosis. Peripheral pulses intact. 1+ bilateral lower extremity edema ASSESSMENT: Coronary artery disease, s/p CABG x 2 Hypertension Hyperlipidemia Pulmonary fibrosis Obesity: BMI 38.1 PLAN: Continue postoperative management per CTS Continue current cardiac medications Increase activity as tolerated Encouraged use of IS Further recommendations pending patient course Nurse practitioner note has been reviewed by physician. Signing provider agrees with the documented findings, assessment, and plan of care. Objective - Vital Signs Vital signs: Vital Signs Temp 98.0 F 08/18/20 11:54 Pulse 74 08/18/20 11:54 Resp 19 08/18/20 12:57 BP 112/66 08/18/20 11:54 Pulse Ox 94 L 08/18/20 11:54 Intake & Output 08/17/20 08/18/20 08/18/20 18:59 06:59 18:59 Intake Total 716 355 Output Total 2102 950 550 Balance -1386 -950 -195 Weight 87.6 kg Intake: Oral 716 355 Output: Urine 1250 950 550 Post Void Residual 852 Other: Voiding Method Toilet Toilet Toilet # Voids 1 # Bowel Movements 1 ABP, PAP, CO, CI - Last Documented Arterial Blood Pressure 95/50 Pulmonary Artery Pressure 37/16 Cardiac Output 6 Cardiac Index 3.4 - Labs CBC & Chem 7: 08/18/20 07:39 08/18/20 07:39 Labs: Abnormal Lab Results - Last 24 Hours (Table) 08/17/20 08/17/20 08/17/20 Range/Units 06:02 16:42 17:54 WBC (3.8-10.6) k/uL RBC (3.80-5.40) m/uL Hgb (11.4-16.0) gm/dL Hct (34.0-46.0) % Neutrophils # (1.3-7.7) k/uL Sodium (137-145) mmol/L Potassium 3.4 L (3.5-5.1) mmol/L Chloride (98-107) mmol/L POC Glucose (mg/dL) 122 H (75-99) mg/dL Iron 28 L (50-170) ug/dL TIBC 225 L (228-460) ug/dL 08/17/20 08/18/20 08/18/20 Range/Units 20:25 06:06 07:39 WBC (3.8-10.6) k/uL RBC (3.80-5.40) m/uL Hgb (11.4-16.0) gm/dL Hct (34.0-46.0) % Neutrophils # (1.3-7.7) k/uL Sodium 125 L (137-145) mmol/L Potassium (3.5-5.1) mmol/L Chloride 89 L (98-107) mmol/L POC Glucose (mg/dL) 137 H 114 H (75-99) mg/dL Iron (50-170) ug/dL TIBC (228-460) ug/dL 08/18/20 08/18/20 Range/Units 07:39 11:57 WBC 11.9 H (3.8-10.6) k/uL RBC 2.67 L (3.80-5.40) m/uL Hgb 7.9 L (11.4-16.0) gm/dL Hct 24.5 L (34.0-46.0) % Neutrophils # 8.0 H (1.3-7.7) k/uL Sodium (137-145) mmol/L Potassium (3.5-5.1) mmol/L Chloride (98-107) mmol/L POC Glucose (mg/dL) 122 H (75-99) mg/dL Iron (50-170) ug/dL TIBC (228-460) ug/dL
--- NOTE | 2020-08-18 16:15 | PN ---
PROGRESS NOTE Patient is seen for followup for hyponatremia. Patient's serum sodium dropped to 125 today from 130 yesterday. Previously it had been at 128. Currently patient is volume- overloaded and she is maintained on IV Lasix. There were plans for possible discharge today. However, it was held secondary to worsening hyponatremia. On examination today, blood pressure was 114/70, heart rate 90 per minute. Patient is afebrile. EXAMINATION OF THE HEART: S1 and S2. EXAMINATION OF LUNGS: Decreased breath sounds at bases. ABDOMEN: Soft, non-tender. Examination of lower extremities shows edema 2+ bilaterally. [employer] exam is grossly intact. Labs show sodium of 125, potassium 3.9, chloride 89, BUN 13, creatinine 0.63. ASSESSMENT: 1. Hyponatremia, currently hypervolemic, maintained on IV Lasix. Patient is advised to decrease free water intake, and I will give her a dose of tolvaptan. Repeat labs in a.m. Discharge is held and she can likely be discharged tomorrow. 2. Status post coronary artery bypass surgery. 3. Volume overload, currently being diuresed. Continue with IV Lasix. PLAN: Continue with IV Lasix. Tolvaptan p.o. x1. Repeat sodium in a.m. MMODL / IJN: [id number] /
[2020-08-18 16:51] LABS: Glucose,Whole Blood 115 mg/dL (75-99)
[2020-08-18] MEDS: MIDODRINE 5 MG TAB PO SCH (19:30)
[2020-08-18] MEDS: NOREPINEPHRINE 4 MG in SODIUM CHLORIDE 0.9% 250 ML IV SCH (19:30)
[2020-08-18] MEDS: LOSARTAN 50 MG TAB PO SCH (19:35)
[2020-08-18] MEDS: MUPIROCIN 2% OINT 22 GM TUBE NASAL SCH (19:35)
[2020-08-18] MEDS: ASPIRIN 81 MG PO SCH (19:35)
[2020-08-18] MEDS: ATORVASTATIN 20 MG TAB PO SCH (19:35)
[2020-08-18] MEDS: ISOSORBIDE MONONITRATE ER 15 MG TAB PO SCH (19:35)
[2020-08-18] MEDS: METOPROLOL TARTRATE 12.5 MG TAB PO SCH (19:35)
[2020-08-18] MEDS: SODIUM CHLORIDE 0.9% 500 ML 500 ML IV SCH (19:36)
[2020-08-18] MEDS: SENNOSIDES-DOCUSATE SODIUM 1 EACH TAB PO SCH (19:36)
[2020-08-18 20:08] LABS: Glucose,Whole Blood 152 mg/dL (75-99)
[2020-08-19] MEDS: ACETAMINOPHEN TAB 325 MG TAB PO PRN ×3 (02:32→12:06)
[2020-08-19] MEDS: BENZOCAINE/MENTHOL LOZENG 1 EACH LOZENGE MUCOUS MEM PRN ×3 (02:32→15:18)
[2020-08-19 06:33] LABS: Glucose,Whole Blood 91 mg/dL (75-99)
[2020-08-19] MEDS: INSULIN ASPART (NovoLOG) 100 UNIT/ML VIAL SQ SCH ×2 (06:45→12:01)
[2020-08-19] MEDS: PANTOPRAZOLE 40 MG TABLET PO SCH (06:46)
[2020-08-19] MEDS: HEPARIN SODIUM,PORCINE 5,000 UNIT/ML 1 ML VIAL SQ SCH (07:55)
[2020-08-19] MEDS: guaiFENesin-DM 600/30MG 1 EACH TAB.ER.12H PO SCH (07:56)
[2020-08-19] MEDS: ASPIRIN 325 MG TAB PO SCH (07:56)
[2020-08-19] MEDS: METOPROLOL TARTRATE 25 MG TAB PO SCH (07:56)
[2020-08-19] MEDS: FLUCONAZOLE 100 MG TAB PO SCH (07:56)
[2020-08-19] MEDS: CLOPIDOGREL 75 MG TAB PO SCH (07:56)
[2020-08-19] MEDS: ATORVASTATIN 40 MG TAB PO SCH (07:57)
[2020-08-19] MEDS: IPRATROPIUM-ALBUTEROL 3 ML NEB INHALATION SCH ×3 (08:08→15:27)
--- NOTE | 2020-08-19 08:32 | XR ---
EXAMINATION TYPE: XR chest 2V DATE OF EXAM: 08/19/2020 COMPARISON: 08/18/2020 TECHNIQUE: PA and lateral views submitted. HISTORY: Postop CABG FINDINGS: Heart is enlarged and there is postsurgical changes. Postoperative change overlying the cervical spin e. Arthropathy of the shoulders. Chronic calcific tendinosis on the left noted. Hyperinflation sugges ts COPD and there is a diffuse interstitial pattern with bilateral lower lobe infiltrate and small ef fusion. Underlying COPD suspected. IMPRESSION: 1. Stable x-ray correlate for CHF, otherwise consider interstitial pneumonitis.
--- NOTE | 2020-08-19 09:21 | P.PN ---
Subjective Progress Note Date: 08/19/20 Principal diagnosis: Coronary artery disease with left main disease, preserved systolic function, preoperative hyponatremia warranting admission for correction. Past medical history significant for pulmonary fibrosis, asthma, hypertension, hyperlipidemia, previous tobacco dependence with preoperative FEV1 107% of predicted, obesity, osteoarthritis, cervical stenosis post anterior cervical decompression with discectomy and fusion, TIA in childhood, and family history of premature coronary artery disease. POD #9 double vessel coronary artery bypass grafting using the left internal mammary artery to the left anterior descending artery, reverse saphenous vein graft from the aorta to the first obtuse marginal artery, exclusion of the left atrial appendage using a 35 mm AtriClip, endoscopic harvesting of the left greater saphenous vein from the groin to just below the knee level, intraoperative graft flow measurements using the Courseload system, intraoperative transesophageal echocardiogram and epi-aortic scanning. Postoperative acute blood loss anemia, expected given hemodilution and cardiopulmonary bypass pump. Postoperative hypotension requiring vasopressor support, expected vasoplegia due to preoperative ARB use. The patient was seen in follow-up today 08/19/2020 at her bedside on the cardiac stepdown unit. Currently she is sitting up to the bedside chair, is awake, alert and oriented 3. This morning she reports she is feeling much improved, denies any complaints of shortness of breath or pain. She also reports that her mouth is much improved and is able to tolerate a diet this morning. Oxygen saturations are 94% on room air and she is achieving 1000 mL on her incentive spirometry. The patient has been ambulating in the cardiac stepdown unit hallway with minimal assistance from nursing staff and therapy staff. Continues to shower daily with assistance from nursing staff. Sodium level was 125 yesterday and this morning's labs remain pending. Continues to report her cough has improved, Mucinex DM remains in place. Discharge instructions have been reviewed with the patient and she is anxious to be discharged home. Objective - Vital Signs Vital signs: Vital Signs Temp 96.4 F L 08/19/20 07:43 Pulse 85 08/19/20 08:18 Resp 16 08/19/20 08:18 BP 111/56 08/19/20 07:43 Pulse Ox 94 L 08/19/20 08:08 Intake & Output 08/18/20 08/19/20 08/19/20 18:59 06:59 18:59 Intake Total 1275 200 Output Total 1000 400 500 Balance 275 -400 -300 Weight 86.5 kg Intake: Oral 1275 200 Output: Urine 1000 400 500 Other: Voiding Method Toilet Toilet Toilet # Voids 1 1 # Bowel Movements 0 ABP, PAP, CO, CI - Last Documented Arterial Blood Pressure 95/50 Pulmonary Artery Pressure 37/16 Cardiac Output 6 Cardiac Index 3.4 - Constitutional General appearance: Present: cooperative, no acute distress, obese - EENT Eyes: Present: normal appearance. Absent: scleral icterus ENT: Present: hearing grossly normal - Neck Details: Neck is supple, no JVD. - Respiratory Details: Lungs sounds essentially clear throughout, diminished bilateral bases. No wheezes, rhonchi or crackles. Respirations are symmetrical and nonlabored. Oxygen saturation are 94% on room air. Achieving 1000 mL on her incentive spirometry. - Cardiovascular Details: Regular rhythm and rate. S1 and S2 present, negative for S3, gallop or murmur. Sternum is stable. Heart hugger is in place and she is demonstrating appropriate use. Surgical support bra in place. Knee-high ANGEL hose and sequential compression right is in place for bilateral lower extremities. - Gastrointestinal Gastrointestinal Comment(s): abdomen is soft, nontender and nondistended. Active bowel sounds present all 4 abdominal quadrants. No guarding or rigidity. No organomegaly appreciated. Bowel movement yesterday 08/18/2020. - Genitourinary Genitourinary Comment(s): Continues to void. - Integumentary Integumentary Comment(s): Skin is warm and dry. No clubbing or cyanosis is present. Midline sternal incision is clean, dry and approximated. No drainage or redness is present. Left lower extremity EVH site is clean, dry and approximated. No drainage or redness is present. - Neurologic Neurologic: Present: CNII-XII intact. Absent: focal deficits - Musculoskeletal Musculoskeletal: Present: gait normal, strength equal bilaterally - Psychiatric Psychiatric: Present: A&O x's 3, appropriate affect, intact judgment & insight - Allied health notes Allied health notes reviewed: nursing - Labs CBC & Chem 7: 08/18/20 07:39 08/18/20 07:39 Labs: Abnormal Lab Results - Last 24 Hours (Table) 08/18/20 08/18/20 08/18/20 Range/Units 11:57 16:50 20:07 POC Glucose (mg/dL) 122 H 115 H 152 H (75-99) mg/dL - Imaging and Cardiology Chest x-ray: report reviewed, image reviewed Assessment and Plan Assessment: 1. 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 hyponatremia, sodium level 120 just prior to admission 3. History of pulmonary fibrosis, asthma 4. Hypertension 5. Hyperlipidemia, treated, cholesterol 186, LDL 98 6. Previous tobacco dependence, preoperative FEV1 107% 7. Obesity 8. Osteoarthritis 9. Cervical stenosis post anterior cervical decompression, discectomy and fusion 10. TIA as a child around age 11 11. Family history of premature coronary artery disease with father diagnosed in his early 50s 12. Postoperative acute blood loss anemia, expected, status post transfusion 13. Postoperative hypotension, expected 14. Candidal stomatitis 15. Postoperative urinary retention, resolved Plan: 1. Continue aspirin, statin, Plavix, ARB and beta sisi. Will increase metoprolol tartrate as tolerated. 2. Continue Diflucan for oral thrush, managed by primary care service. 3. Encourage incentive spirometry is 10 times every hour while awake. Bronchodilators per pulmonology/critical care management. 4. Increase activity, ambulate as tolerated. PT/OT/cardiac rehab following. 5. Will monitor daily labs and chest x-rays. Electrolyte replacement per protocol, magnesium and potassium replaced this a.m. No further transfusion at this point. 6. GI/DVT prophylaxis 7. Insulin management per primary care service. Patient is not diabetic, hemoglobin A1c 5.5%. 8. Strict accurate intake and output. Daily weights. 9. Lasix 40 mg IV 1 daily 10. Discharge planning is in place, anticipate discharge home with home health care versus inpatient rehab within the next 24hours. 11. More recommendations to follow based on patient's clinical course. Time with Patient: Greater than 30
[2020-08-19] MEDS: FUROSEMIDE 10 MG/ML 4 ML VIAL IV SCH (10:03)
--- NOTE | 2020-08-19 10:36 | P.PN ---
Subjective Progress Note Date: 08/19/20 75-year-old female who was admitted to the hospital on August 06. She came in because her sodium was low. I saw the patient in the office for preop clearance in anticipation of bypass grafting. She actually had the surgery today. Currently, she is on the volume assist control mode, rate of 12, tidal volume 350, FiO2 70%, and a PEEP of 5. Plendil same settings but 100%, the pO2 was 243, the pCO2 is 44, and a pH of 7.34. She is currently on saline at 50 mL an hour, nitroglycerin at 5 mcg/m, propofol has been turned off, and she is on norepinephrine at 5 mcg/m. She apparently had a two-vessel bypass grafting. She has a history of hyperlipidemia, hypertension, CAD, skin cancer, arthritis, and possible TIA. In addition, I saw her in the distant past for some inter stitial lung disease/pulmonary fibrosis. The patient did have a complete pulmonary function test in my office. The patient's lung function including the FEV1, MVV, and RV/TLC ratio were all excellent. Based on her numbers, I thought she was at low increased operative risk. This was passed onto the cardiothoracic team. The patient surgery included a bypass graft using the left internal mammary artery to the left anterior descending coronary artery, and a reverse saphenous vein graft from aorta to the first obtuse marginal artery. She also had exclusion of the left atrial appendage using a 35 mm AtriClip, endoscopic harvesting of the left greater saphenous vein, intraoperative graft flow measurements using the Medi-Stim system and intraoperative transesophageal echocardiogram. Progress note dated 08/11/2020. 75-year-old female postop day #2, status post two-vessel bypass grafting. Currently, the patient is doing relatively well. She is on 2 L nasal cannula. She is getting lactated Ringer's at 50 mL an hour, norepinephrine at 8.2 mcg/m, insulin at 0.5 units an hour. She was extubated about 4-1/2 hours after leaving the operating room. She had a pretty uneventful night according to her nurse. Her chest x-rays reviewed. This shows typical postoperative changes. I did a preop evaluation on her, and her lung function is mentioned in my consultation were excellent. She does have a history of underlying mild pulmonary fibrosis/interstitial lung disease. Currently, her white count is 7.9, hemoglobin 7.2, hematocrit 20.4, and platelet count 109,000. PT is 12.1, INR 1.2, PTT 41.1. Her last blood gases prior to extubation show a PaO2 of 114, PaCO2 of 43, and a pH of 7.37. Sodium is 133, potassium 4.3, chlorides 104, CO2 24, anion gap 5, BUN 13, and creatinine 0.63. Albumin is 2.9. Calcium is 7.7. Ionized calcium is normal. On 08/12/2020 patient seen in follow-up in the intensive care unit, she is awake and alert, she is in no acute distress, today is postoperative day 3 status post two-vessel bypass grafting. She is currently on 2 L of oxygen pulse ox of 90%, vital signs have been stable. Patient is working on incentive spirometer, today's chest x-ray has been reviewed showing a component of interstitial edema, basilar atelectasis versus edema, relatively stable exam. Patient remains on vasopressor support in the form of the fat currently running at 13 mics per minute, and she did require volume in the form of 5% albumin ordered by cardiothoracic surgery. She received a total of thousand mL of 5% albumin yesterday, with additional 250 of albumin this morning. Patient is significantly positive terms of her weight, +14 kg since admission. Patient still has mediastinal chest tube in place with a total of 370 of thin serosanguineous fluid in the last 24 hours, and left lateral chest tube put out 810 of fluid. Patient's 0.9 normal saline is running at 20 ML per hour. On 08/14/2020 patient seen in follow-up in intensive care unit, she sits up in the recliner, in no acute distress, she is currently on room air. Pulse ox is 91%, she is working incentive spirometer, she is achieving 750 today, her chest tubes have been removed, her IVs have been hep-locked, she's been hemodynamically stable, chest x-ray has been reviewed showing residual atelectasis, possible small effusion. The patient is seen today 08/15/2020 in follow-up on the elective care unit. She is currently sitting up in a chair at the bedside. Awake and alert in no acute distress. This is postoperative day #6. Denies any worsening shortness of breath, cough or congestion. She is maintaining O2 saturations in the 90s on room air. She's working well with the incentive spirometer. She's been up with assistance. Chest x-ray revealed cardiomegaly with small effusions and pulmonary venous congestion with scattered infiltrates. White count 10.0. Hemoglobin 7.4. Sodium 136. Potassium 3.5. Creatinine 0.63. She remains on bronchodilators. Heparin for DVT prophylaxis. The patient is seen today 08/16/2020 in follow-up on the selective care unit. She is awake and alert in no acute distress. She's been up ambulating in the hallway without any acute distress. She is maintaining good O2 saturations in the 90s on room air. She is doing better with her incentive spirometer. No pulmonary complaints. Chest x-ray showing improved pulmonary vascular congestion. Continue cardiomegaly with small effusions and scattered infiltrates. She is status post 1 unit of packed red blood cells this admission. Current hemoglobin 7.6. White count 11.3. Sodium 134. Potassium 3.5. Creatinine 0.64. Magnesium 1.8. Magnesium being replaced. She was given Lasix 40 mg IVP 1 today. Remains on bronchodilators On 08/17/2020 station for a follow-up H is on room air oxygen. She is ambulating. She is compensated with limited amount of inspiratory efforts, she goes into coughing spells. On today's chest x-ray, the patient has small bilateral pleural effusion, pulmonary vessel congestion and cardiomegaly. She'll be given another dose of Lasix. Otherwise, the patient has a clear wound and the chest wound is dry clean and intact. No fever or chills. She was given Mucinex DM for cough. The white cell count at 15.6 with a hemoglobin of 7.6 which is stable compared to yesterday. Renal function stable. Sodium is at 1:30. Cardiac rhythm is sinus. She remains on aspirin, Plavix, Cozaar 25 mg by mouth daily, metoprolol 75 mg by mouth twice a day and statins. The epicardial pacemaker wires have been removed. The patient is using incentive spirometer. She is having bladder scans every 6 hours. No other significant issues otherwise for now. On 08/18/2020 patient seen in follow-up care unit. Doing of flashing lights, she thinks she has a migraine, slightly nauseous, but no headache per se. She states ever is normal she does get a migraine headache but hasn't had one in a while. Denies any shortness of breath, no chest pain, all chest tubes have been discontinued, Yu has been discontinued, patient has been tolerating amb ulation, she is on room air with pulse ox of 97%, she is in sinus mechanism with a controlled rate, she hasn't had a fever or chills, lung sounds are clear, diminished at the bases, and says spirometer effort is 1000 and now on today's exam. Chest x-ray has been reviewed showing his interstitial pattern likely on the basis of fluid overload, patient was given a dose of IV Lasix per CT surgery. Today's labs have been reviewed showing white blood cell count of 11.9, hemoglobin is 7.9, serum sodium is down to 125, patient was given a dose of 12 at 10, we'll place her on 1500 mL water restriction, potassium is 3.9, chloride is 89, BUN of 13 creatinine 0.63. Is clear, without sign of infection. 2020 on seeing the patient for a follow-up. She is doing well. She is ambulating. She is pulling was on the incentive spirometer. No respiratory distress. She is currently on room air oxygen. No cough or sputum production chest that is so wheezing. No cardiac arrhythmias. No swelling lower extremities. The patient will possibly go home today. Awaiting the follow-up labs to monitor his sodium level. Objective - Vital Signs Vital signs: Vital Signs Temp 96.4 F L 08/19/20 07:43 Pulse 85 08/19/20 08:18 Resp 16 08/19/20 08:18 BP 111/56 08/19/20 07:43 Pulse Ox 94 L 08/19/20 08:08 Intake & Output 08/18/20 08/19/20 08/19/20 18:59 06:59 18:59 Intake Total 1275 200 Output Total 1000 400 500 Balance 275 -400 -300 Weight 86.5 kg Intake: Oral 1275 200 Output: Urine 1000 400 500 Other: Voiding Method Toilet Toilet Toilet # Voids 1 1 # Bowel Movements 0 ABP, PAP, CO, CI - Last Documented Arterial Blood Pressure 95/50 Pulmonary Artery Pressure 37/16 Cardiac Output 6 Cardiac Index 3.4 - Exam GENERAL EXAM: Alert, very pleasant, 75-year-old white female, room air pulse ox is 91% % comfortable in no apparent distress. HEAD: Normocephalic/atraumatic. EYES: Normal reaction of pupils, equal size. Conjunctiva pink, sclera white. NOSE: Clear with pink turbinates. THROAT: No erythema or exudates. NECK: No masses, no JVD, no thyroid enlargement, no adenopathy. CHEST: No chest wall deformity. Symmetrical expansion. Midsternal incision is clean dry and intact, mediastinal and left pleural chest tube site clean dry and intact LUNGS: Equal air entry with diminished sounds at the bases CVS: Regular rate and rhythm, normal S1 and S2, no gallops, no murmurs, no rubs ABDOMEN: Soft, nontender. No hepatosplenomegaly, normal bowel sounds, no guarding or rigidity. EXTREMITIES: No clubbing, no edema, no cyanosis, 2+ pulses and upper and lower extremities. MUSCULOSKELETAL: Muscle strength and tone normal. SPINE: No scoliosis or deformity SKIN: No rashes CENTRAL NERVOUS SYSTEM: Alert and oriented -3. No focal deficits, tone is normal in all 4 extremities. PSYCHIATRIC: Alert and oriented -3. Appropriate affect. Intact judgment and insight. - Labs CBC & Chem 7: 08/18/20 07:39 08/18/20 07:39 Labs: Abnormal Lab Results - Last 24 Hours (Table) 08/18/20 08/18/20 08/18/20 Range/Units 11:57 16:50 20:07 POC Glucose (mg/dL) 122 H 115 H 152 H (75-99) mg/dL Assessment and Plan Plan: #1. Status post two-vessel bypass grafting, exclusion of left atrial appendage, and intraoperative transesophageal echocardiogram, postoperative day #8. #2. Hyponatremia, likely hypervolemic #3. Routine postoperative ventilator management, with extubation 4-1/2 hours after leaving the operating room. #4. Acute hypoxic respiratory failure related to hypoventilation, atelectasis and fluid overload #5. Hypotension, likely hypovolemic related to postoperative blood loss anemia, expected outcome of bypass surgery #6. History of stable/mild pulmonary fibrosis, with excellent preoperative lung function, including FEV1, MVV, and RV/TLC ratio. #7. Hyponatremia, improving #8. History of coronary artery disease. #9. History of hyperlipidemia. #10. History of hypertension. #11. History of skin cancer. #12. History of arthritis. #13. Status post bilateral cataract removal with lens implants. #14. History of cervical fusion. Plan Monitor the sodium level and as long as the level is improving the patient can be potentially discharged home today. Overall cardio pulmonary status is stable for now. We'll continue to follow.
[2020-08-19 10:43] LABS: HCT 25.4 % (34.0-46.0); Hypochromasia Moderate; MCH 29.6 pg (25.0-35.0); MCHC 31.6 g/dL (31.0-37.0); MCV 93.7 fL (80.0-100.0); Mean Platelet Volume 7.4; Platelet Count 424 k/uL (150-450); Poikilocytosis Slight; RBC 2.71 m/uL (3.80-5.40); RDW 15.8 % (11.5-15.5); WBC 12.9 k/uL (3.8-10.6)
[2020-08-19 10:46] LABS: Calcium 8.4 mg/dL (8.4-10.2); Magnesium 2.5 mg/dL (1.6-2.3)
[2020-08-19 11:53] LABS: Glucose,Whole Blood 123 mg/dL (75-99)
[2020-08-19 12:00] VITALS: TEMP 98.3
[2020-08-19] MEDS: LOSARTAN 25 MG TAB PO SCH (12:01)
[2020-08-19] MEDS: ASCORBIC ACID 500 MG TAB PO SCH (12:06)
[2020-08-19] MEDS: FERROUS SULFATE 325 MG TAB PO SCH (12:06)
[2020-08-19] MEDS ORDERED: TOLVAPTAN 15 MG 1/2 TABLET PO ONE (13:02)
--- NOTE | 2020-08-19 13:45 | P.PN ---
Subjective Progress Note Date: 08/19/20 This is a 75-year-old female patient of Dr. Avila and Dr. Garcia with a past medical history of pulmonary fibrosis, asthma, hypertension, hyperlipidemia, obesity, osteoarthritis, cervical stenosis status post anterior cervical decompression, discectomy and fusion. Patient recently underwent stress testing which demonstrated anterior wall ischemia with small reversible defect. It was recommended to undergo heart catheterization which was completed and showed calcified coronary artery, significant distal left main by IVUS, mild to moderate disease of the left anterior descending artery. Transthoracic echo was completed showed EF of 55%, mild mitral regurgitation, mild tricuspid regurgitation. Patient was then referred for coronary artery bypass grafting. During her outpatient preoperative workup patient was noted to have hyponatremia with sodium level of 120. She was advised to go to the emergency department to be admitted to correct her sodium level. Patient reports she's asymptomatic, she denies any chest pain, palpitations, shortness of breath, fever, chills, no nausea, vomiting, diarrhea, or diarrhea. Consult placed for nephrology, she was started on 0.9 normal saline at 75 mL per hour. 08/07: Patient has been afebrile, heart rate 62, blood pressure 132/70, pulse ox 90% on room air. Sodium today is at 125. Potassium 4.0, chloride 90, CO2 20, BUN 20 creatinine 0.7. Patient is followed by nephrology and received sodium chloride tablet 2 g once this morning. Repeat sodium level at 2 PM, cortisol level ordered and TSH. Patient states that she is feeling well today. She denies any lightheadedness or dizziness. No chest pain or shortness of breath. She is scheduled for open heart surgery on Monday and anticipates that she will be here through the weekend. 08/08 sodium is much better, instructions were for discontinuation of IV fluids, currently running at 75 mL an hour, sodium 135, seen by nephrology, patient is scheduled to have open heart surgery on Monday, and the would consult Dr. Sethi, and Dr. Harrison, who would assist with preop CABG management, patient denies any nausea vomiting, blood pressure is significantly much better today, no chest pain no difficulty breathing, but pressure fluctuates between 99 systolic to 161 systolic, heart rate stable at 60-69, creatinine at 0.08 urinalysis negative, patient continues to be off hydrochlorothiazide 08/09 patient feels well today, no new concerns of chest pain shortness of breath no lightheadedness no dizziness, no GI losses no pleurisy, no dysuria. Patient's serum sodium is 138, electrolytes are normal creatinine is 0.8, expected to proceed with CABG as scheduled for August 10Monday morning. board, comes felt with cardiology to assist with postcardiac management in the morning. She will be made nothing by mouth post midnight tonight 08/10: Patient is gone this morning for CABG. Patient was not seen and evaluated at this time. 08/11: Patient is status post CABG, left internal mammary artery to the left anterior descending artery, reverse saphenous vein graft from the aorta to the first obtuse marginal artery, postop day #1. Patient was successfully extubated. Patient is seen today in the intensive care unit. Patient complains of generalized fatigue and weakness. Temperature max 100.6, heart rate in the 70s and 80s, respiratory rate 25, blood pressure 91/39, pulse ox 93% on 2 L nasal cannula. WBC 7.9, hemoglobin 7.2, platelet count 109. INR is 1.2. Sodium 133 otherwise elect lites are normal, creatinine 0.63. Total bilirubin 0.6. AST 37, lymphocytes 26. Repeat chest x-ray reveals difficult to exclude component of volume overload, interstitial edema, there may be basilar atelectasis versus edema, associated effusion. Patient is reaching 500 on incentive spirometry. 08/12: Patient remains in the intensive care unit and looks more comfortable today. Patient is resting in a chair. Her pulse ox is running 88-90% on 2 L but respiratory status appears stable. She's been afebrile, heart rate in the 80s, blood pressure 111/47. Blood sugars have been running 107-133. Insulin drip will be discontinued and patient placed on NovoLog scale every 4 hours until nighttime and transition to before meals at bedtime. Norepinephrine to be weaned. IV lasix was ordered this morning. WBC 11.7, hemoglobin 7.3, platelet count 112. Sodium 131, creatinine 0.82. Mediastinal chest tube to be removed today and Yu to be removed today. 08/13: Patient remains in the intensive care unit. She appears to be comfortable. She is found sitting up in chair. No shortness of breath. She has occasional cough. She is working on incentive spirometry. Patient has been afebrile, heart rate 100, blood pressure 101/53, pulse ox 97% on 2 L nasal cannula. monitoring specialist sinus rhythm. WBC 7.4, hemoglobin 7, platelet count 107. Sodium 130, potassium 4.3, chloride 103, CO2 25, BUN 21 and creatinine 0.86. Blood sugar 104. Capillary blood glucose running between 104 and 134. Repeat chest x-ray reveals no evident complications status post chest tube removal. Persistent atelectatic changes. Cardiac megaly. Postop changes. Patient received 1 dose of IV Lasix this morning. Yu catheter was removed yesterday and patient has been straight cathed this morning. Right Cordis to be removed. 08/14: Patient is seen today in the intensive care unit. She states she is not doing well because she has thrush is having difficulty eating. She was started on nystatin swish and swallow this morning. He has been afebrile, heart rate 96, blood pressure 133/68, pulse ox 91% on room air. monitoring specialist has been in sinus rhythm. She is reaching 750 on incentive spirometry. WBC 8, hemoglobin 7, creatinine 0.72. Blood sugars running between 108 130. Patient is scheduled to be transferred out of the intensive care unit today. Discussed discharge planning with the patient and inpatient rehab may be a good option for her. Cardiothoracic team to address. 08/15/: She has seen today on . She states that she is having some difficulty breathing with cough and congestion. Remained afebrile, heart rate 102, respirations 18 blood pressure 151/67. Pulse ox a 95% on room. WBCs 10.0, hemoglobin 7.4, potassium 3.5, BUN 18, creatinine 0.63. Blood sugars between 108 and 135. 08/16: Patient was found ambulatory in the ha. Patient states that she is feeling much better, taking his to complain of sore scratchy throat. Denies any difficulty breathing cough or congestion at this time. Patient has been afebrile, pulse rate 96, blood pressure 171/79, pulse ox a 95% on room air. Patient will have pacemaker wires removed today. With anticipation for possible discharge home tomorrow. Additional dose of Lasix given, beta sisi increased to 75 2 times a day. Nystatin swish and swallow given 4 days. We'll add Diflucan for Belen's of the mouth. 08/17: She is seen today on the cardiac stepdown unit. She continues to complain that she has difficulty eating due to thrush. Over the weekend she was changed from nystatin swish and swallow and added Diflucan 100 mg daily. Patient has been afebrile, heart rate 81, blood pressure 106/62, pulse ox 92% on room air. WBC 13.6, hemoglobin 7.6, platelet count 335. Sodium 130, potassium 3.8, chloride 93, CO2 27, BUN 14 and creatinine 0.64. Blood sugars running between 104 and 216. Urinalysis negative for infection. Patient has been seen by Dr. Robertson but no clear plan for discharge to inpatient rehab. Patient is planning to go home in the next day or 2. She states her as they're available to assist her. Patient is reaching 1000 on incentive spirometry. 08/18: Patient denies any new complaints. She was being prepared for planned discharge today but sodium is low at 125. Hemoglobin 7.9, WBC 11.9. Blood sugars running between 99 and 137. Nephrology has ordered 1 dose of Samsca to day. Anticipate October discharge home tomorrow. Patient is doing well with PT and OT. 08/19: Patient denies having any chest pain or shortness of breath. She is reaching 1000 ML's on incentive spirometry. Her pulse ox is 94% on room air. She has been afebrile, heart rate 85, blood pressure 111/56. Blood sugar running between 91 and 152. WBC 12.9, hemoglobin 8. His sodium 127. Repeat chest x-ray reveals stable correlate for CHF, consider interstitial pneumonitis. Patient is currently on Diflucan recommend a 7 day course. Patient is scheduled for discharge home today. She will have a follow-up appointment with Dr. Carlos Avila. REVIEW OF SYSTEMS Constitutional: Reports fatigue, Denies chills, Denies fever, reports mild fatigue. Ears, nose, mouth and throat: Denies headache, Denies nasal congestion, reports nasal discharge, Denies sinus pain, Denies sinus pressure, reports sore throat, reports thrush Cardiovascular: Reports chest discomfort, Denies edema, Denies irregular heart beat, Denies leg edema, Denies orthopnea, Denies palpitations, Denies shortness of breath, Denies syncope Respiratory: Denies congestion, Denies cough, Denies pain, Denies respiratory infections, Denies wheezing Gastrointestinal: Denies abdominal pain, Denies constipation, Denies diarrhea, Denies dyspepsia, Denies heartburn, Denies hematemesis, Denies loss of appetite, Denies nausea, Denies vomiting Genitourinary: Denies dysuria, Denies hematuria, Denies urgency Musculoskeletal: Denies arm numbness/tingling, Denies atrophy, Denies fractures, Denies frequent falls, Denies gait dysfunction, Denies myalgias, Denies neck pain, Denies neck stiffness Integumentary: Denies dryness, Denies lesions, Denies pruritus, Denies wounds Neurological: Denies confusion, Denies gait dysfunction, Denies headaches, Denies paralysis, Denies seizures, Denies spasticity, Denies syncope, Denies vertigo Psychiatric: Denies anxiety, Denies confusion, Denies irritability, Denies mood swings, Denies paranoia, Denies suicidal ideation Endocrine: Denies excessive sweating, Denies fatigue, Denies high blood sugars, Denies palpitations, Denies polyphagia, Denies polyuria, Denies thyroid mass PHYSICAL EXAMINATION Gen: This is a 75-year-old female. She is sitting up in chair and appears to be comfortable and in no acute distress. HEENT: Head is atraumatic, normocephalic. Pupils equal, round. Sclerae is anicteric. NECK: Supple. No JVD. No lymphadenopathy. No thyromegaly. LUNGS: Diminished bilaterally. No intercostal retractions. HEART: Regular rate and rhythm. No murmur. l. ABDOMEN: Soft. Bowel sounds are present. No masses. No tenderness. EXTREMITIES: No pedal edema. No calf tenderness. Dorsalis pedis palpable bilaterally. NEUROLOGICAL: Patient is awake, alert and oriented x3. Cranial nerves 2 through 12 are grossly intact. ASSESSMENT AND PLAN 1. Hyponatremia, resolved. Nephrology is following. 2. Coronary artery disease with left main disease status post CABG. Continue current management per cardiothoracic team. 3. History of pulmonary fibrosis. Continue duo nebs and albuterol 4. Asthma, mild intermittent. Continue ipratropium albuterol nebulizers 5. Hyperlipidemia. Continue statin daily 6. Hypertension. Continue Lopressor 75 mg twice a day 7. GI prophylaxis. Pantoprazole 8. DVT prophylaxis: SCDs 9. Blood sugar management in a nondiabetic. insulin scale ACHS. 10. Pulmonary venous congestion. Repeat chest x-ray, 40 mg Lasix IV. Continue to monitor hemoglobin. 11. Thrush. Diflucan 100 mg daily. DISCHARGE PLAN Home with homecare Impression and plan of care have been directed as dictated by the signing physician. Monica Fragoso nurse practitioner acting as scribe for signing physician. Objective - Vital Signs Vital signs: Vital Signs Temp 96.4 F L 08/19/20 07:43 Pulse 85 08/19/20 08:18 Resp 16 08/19/20 08:18 BP 111/56 08/19/20 07:43 Pulse Ox 94 L 08/19/20 08:08 Intake & Output 08/18/20 08/19/20 08/19/20 18:59 06:59 18:59 Intake Total 1275 200 Output Total 1000 400 500 Balance 275 -400 -300 Weight 86.5 kg Intake: Oral 1275 200 Output: Urine 1000 400 500 Other: Voiding Method Toilet Toilet Toilet # Voids 1 1 # Bowel Movements 0 ABP, PAP, CO, CI - Last Documented Arterial Blood Pressure 95/50 Pulmonary Artery Pressure 37/16 Cardiac Output 6 Cardiac Index 3.4 - Labs CBC & Chem 7: 08/19/20 09:03 08/19/20 09:03 Labs: Abnormal Lab Results - Last 24 Hours (Table) 08/18/20 08/18/20 08/18/20 Range/Units 11:57 16:50 20:07 POC Glucose (mg/dL) 122 H 115 H 152 H (75-99) mg/dL
--- NOTE | 2020-08-19 14:12 | P.DS ---
Providers Date of admission: 08/06/20 14:17 Expected date of discharge: 08/19/20 Attending physician: Flores Sethi Consults: 08/06/20 14:16 Consult Physician Urgent Consulting Provider: Renae Lema Consult Reason/Comments: Hyponatremia Do you want consulting provider notified?: Yes 08/08/20 13:29 Consult Physician Routine Consulting Provider: Flores Sethi Consult Reason/Comments: cad, sched for cabg 08/10 Do you want consulting provider notified?: Yes 08/08/20 13:30 Consult Physician Routine Consulting Provider: Aiden Guadalupe Consult Reason/Comments: cad req cabg for 08/10 Do you want consulting provider notified?: Yes 08/09/20 09:05 Consult to Anesthesia Routine Consulting Provider: Anesthesia,Services Consult Reason/Comments: Cardiac Surgery Pre-Op 08/09/20 11:30 Consult Physician Routine Consulting Provider: Hoang Graves Consult Reason/Comments: cabg on Do you want consulting provider notified?: Yes 08/10/20 14:15 Consult Physician Routine Consulting Provider: Monica Dubois Consult Reason/Comments: med mgmt; Do you want consulting provider notified?: Already Contacted 08/14/20 10:45 Consult Physician Routine Consulting Provider: Anival Metcalf Consult Reason/Comments: urinary retention Do you want consulting provider notified?: Yes 08/14/20 11:42 Consult Physician Routine Consulting Provider: Anival Metcalf Consult Reason/Comments: urine retrntion Do you want consulting provider notified?: Yes 08/15/20 06:57 Consult Physician Routine Consulting Provider: Matthew Robertson Consult Reason/Comments: evaluation for inpatient rehab Do you want consulting provider notified?: Yes Primary care physician: [facility] Course: FINAL DIAGNOSIS: 1. 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 hyponatremia, sodium level 120 just prior to admission, 127 on discharge 3. History of pulmonary fibrosis, asthma 4. Hypertension 5. Hyperlipidemia, treated, cholesterol 186, LDL 98 6. Previous tobacco dependence, preoperative FEV1 107% 7. Obesity 8. Osteoarthritis 9. Cervical stenosis post anterior cervical decompression, discectomy and fusion 10. TIA as a child around age 11 11. Family history of premature coronary artery disease with father diagnosed in his early 50s 12. Postoperative acute blood loss anemia, expected, status post transfusion 13. Postoperative hypotension, expected 14. Candidal stomatitis 15. Postoperative urinary retention, resolved PRINCIPAL PROCEDURE: 1. Double vessel coronary artery bypass grafting using the left internal mammary artery to left anterior descending coronary artery, a reverse greater saphenous vein graft from the aorta to the first obtuse marginal coronary artery. 2. Endoscopic harvesting of the left greater saphenous vein from the groin to just below the knee level. 3. Exclusion of the left atrial appendage using a 35 mm Atriclip. 4. Intraoperative graft flow measurement using the [employer] system. 5. Intraoperative transesophageal echocardiogram. 6. Intraoperative epi-aortic scanning. HISTORY OF PRESENT ILLNESS: This is a 75-year-old female patient who follows on an outpatient basis with Dr. Rich Avila for primary care service, Dr. Sloan for cardiology management and Dr. Guadalupe for pulmonary fibrosis management. She has a past medical history significant for hypertension, hyperlipidemia, pulmonary fibrosis, asthma, obesity, remote history of tobacco dependence with smoking 32 years ago, osteoarthritis, cervical stenosis post anterior cervical decompression, discectomy and fusion, TIA as a child at age 11 and family history of premature coronary artery disease with her father being diagnosed in his early 50s. Recently, the patient has been experiencing episodes of shortness of breath over the past 6 months with just minimal activity. She also complained of some lower extremity swelling which did resolve with some diuresis. Due to the above-mentioned complaints she underwent a stress test which showed anterior wall ischemia with small reversible defect. She also underwent a 2-D echocardiogram which showed mild aortic valve insufficiency, mild mitral valve regurgitation, mild tricuspid valve regurgitation and an overall left ventricular function to be normal with an ejection fraction of 55%. Subsequently she underwent an elective heart catheterization on 07/27/2020 which demonstrated a left main stenosis with QING with a calculation of 2.6 mm, a 40% stenosis to her mid left anterior descending coronary artery and a 30% stenosis to her right coronary artery. Due to the patient's symptoms and findings on her heart catheterization of left main stenosis a consult was placed to Dr. Flores Sethi from cardiothoracic surgery for further evaluation and treatment recommendations. Dr. Sethi met with the patient and her , reviewed the findings on the cardiac catheterization, discussed treatment options including myocardial revascularization surgery, including risks and benefits of surgery. After discussing the treatment options with the patient, the patient wished to proceed with the surgical option. During her preoperative workup her serum sodium level was found to be 120 and was admitted prior to surgery for treatment of hyponatremia. HOSPITAL COURSE: On 08/06/2020 the patient was admitted to the hospital for treatment of her hyponatremia, and once her hyponatremia was resolved on 08/10/2020, after obtaining consent the patient was brought to the preoperative area, prepared in the usual fashion and subsequently taken to the operating room where Dr. Flores Sethi performed a double vessel coronary artery bypass grafting surgery using the left internal mammary artery to left anterior setting coronary artery, a reverse greater saphenous vein graft from the aorta to the first obtuse marginal coronary artery, endoscopic harvesting of the left greater saphenous vein from the groin to just below the knee level, exclusion of her left atrial appendage using a 35 mm Atriclip, intraoperative graft flow measurements using the [employer] system, intraoperative transesophageal echocardiogram and intraoperative epi-aortic scanning. Upon completion of the surgery the patient was transferred to the cardiovascular intensive care unit where she was recovered, monitored hemodynamically and where she progressed cardiac rehabilitation phase 1. She was extubated, all lines, tubes and supportive drips were discontinued when appropriate and she was transferred to the cardiac stepdown unit for further monitoring and rehabilitation. She did experience another episode of hyponatremia postoperatively which was treated accordingly. Her oxygen was titrated down, she continued to work with physical/occupational therapy and cardiac rehabilitation, she was tolerating an oral diet, her pain was well controlled without narcotics and she was ready to be discharged home with [facility] on postoperative day #9. She has received written and verbal instructions regarding her medications, activity restrictions, signs and symptoms requiring physician Guille indication and her follow-up appointments. COMPLICATIONS: There were no postoperative complications. CONSULTATIONS: 1. Dr. Sloan for cardiology management. 2. Dr. eBntley for medical management. 3. Dr. Guadalupe for pulmonary management. 4. Dr. Lema for nephrology management. 5. Dr. Robertson for rehab management. 6. Dr. Metcalf for urology management. Plan - Discharge Summary Discharge Rx Participant: Yes New Discharge Prescriptions: New Aspirin 325 mg PO DAILY #30 tab Losartan [Cozaar] 25 mg PO DAILY@1200 #30 tab Fluconazole [Diflucan] 100 mg PO DAILY #3 tab Ferrous Sulfate [Iron (65 MG Elemental)] 325 mg PO W/LUNCH #7 tab Potassium Chloride ER [K-Dur 10] 10 meq PO DAILY #7 tab Furosemide [Lasix] 40 mg PO DAILY #7 tablet Atorvastatin [Lipitor] 40 mg PO DAILY #30 tab Metoprolol Tartrate [Lopressor] 75 mg PO BID #180 tab guaiFENesin-DM 600/30MG [Mucinex Dm] 2 each PO Q12HR #14 tab.er.12h Clopidogrel [Plavix] 75 mg PO DAILY #30 tab Pantoprazole [Protonix] 40 mg PO AC-BRKFST #30 tablet.dr Roquenosidelior-Docusate Sodium [Senokot-S] 2 each PO HS PRN #14 tab PRN Reason: Constipation Tolvaptan 15 mg PO DIRECTED #1 tablet Acetaminophen Tab [Tylenol] 650 mg PO Q4HR PRN tab PRN Reason: Fever and/ or Mild Pain Ascorbic Acid [Vitamin C] 500 mg PO DAILY@1200 #7 tab Continue Albuterol Sulfate [Albuterol Sulfate Hfa] 2 puff PO RT-Q6H PRN PRN Reason: Shortness Of Breath Discontinued Simvastatin [Zocor] 40 mg PO DAILY Losartan Potassium 100 mg PO DAILY Aspirin EC [Ecotrin Low Dose] 81 mg PO DAILY Nitroglycerin Sl Tabs [Nitrostat] 0.5 tab SUBLINGUAL Q5M PRN PRN Reason: Chest Pain hydroCHLOROthiazide 25 mg PO DAILY Isosorbide Mononitrate ER [Imdur] 15 mg PO DAILY Metoprolol Tartrate [Lopressor] 12.5 mg PO BID No Action Ipratropium-Albuterol Nebulize [Duoneb 0.5 mg-3 mg/3 ml Soln] 3 ml INHALATION RT-QID PRN PRN Reason: Shortness Of Breath Ibuprofen [Motrin] 800 mg PO TID PRN PRN Reason: Pain Discharge Medication List Ipratropium-Albuterol Nebulize [Duoneb 0.5 mg-3 mg/3 ml Soln] 3 ml INHALATION RT-QID PRN 05/18/15 [History] Ibuprofen [Motrin] 800 mg PO TID PRN 12/05/17 [History] Albuterol Sulfate [Albuterol Sulfate Hfa] 2 puff PO RT-Q6H PRN 08/06/20 [History] Acetaminophen Tab [Tylenol] 650 mg PO Q4HR PRN tab 08/19/20 [Rx] Ascorbic Acid [Vitamin C] 500 mg PO DAILY@1200 #7 tab 08/19/20 [Rx] Aspirin 325 mg PO DAILY #30 tab 08/19/20 [Rx] Atorvastatin [Lipitor] 40 mg PO DAILY #30 tab 08/19/20 [Rx] Clopidogrel [Plavix] 75 mg PO DAILY #30 tab 08/19/20 [Rx] Ferrous Sulfate [Iron (65 MG Elemental)] 325 mg PO W/LUNCH #7 tab 08/19/20 [Rx] Fluconazole [Diflucan] 100 mg PO DAILY #3 tab 08/19/20 [Rx] Furosemide [Lasix] 40 mg PO DAILY #7 tablet 08/19/20 [Rx] Losartan [Cozaar] 25 mg PO DAILY@1200 #30 tab 08/19/20 [Rx] Metoprolol Tartrate [Lopressor] 75 mg PO BID #180 tab 08/19/20 [Rx] Pantoprazole [Protonix] 40 mg PO AC-BRKFST #30 tablet. 08/19/20 [Rx] Potassium Chloride ER [K-Dur 10] 10 meq PO DAILY #7 tab 08/19/20 [Rx] Sennosides-Docusate Sodium [Senokot-S] 2 each PO HS PRN #14 tab 08/19/20 [Rx] Tolvaptan 15 mg PO DIRECTED #1 tablet 08/19/20 [Rx] guaiFENesin-DM 600/30MG [Mucinex Dm] 2 each PO Q12HR #14 tab.er.12h 08/19/20 [Rx] Follow up Appointment(s)/Referral(s): Dilip Sloan MD [STAFF PHYSICIAN] - 09/09/20 9:15 am (Dr Sloan's office will call with a follow up appointment. ) Ro De La Fuente NPC [Nurse Practitioner] - 08/26/20 11:00 am [facility],Cardiac [NON-STAFF] - 4 Weeks (You will receive a phone call approximately 4-6 after surgery for evaluation for cardiac rehab) Flores Sethi MD [STAFF PHYSICIAN] - 09/07/20 10:00 am Anival Metcalf MD [STAFF PHYSICIAN] - 1 Week (Liz from the urology office will call with a follow-up appointment.) Aparna Colunga NPC [Nurse Practitioner] - 09/03/20 2:00 pm [facility], [NON-STAFF] - 1-2 Days Rich Avila MD [Primary Care Provider] - 08/25/20 10:30 am Renae Lema MD [STAFF PHYSICIAN] - 08/24/20 9:20 am (the will be a follow up appointment by phone. The office will call you.) Ambulatory/Diagnostic Orders: Complete Blood Count w/diff [LAB.AMB] Time Frame: 3 Days, Location: None Selected Comprehensive Metabolic Panel [LAB.AMB] Time Frame: 3 Days, Location: None Selected Activity/Diet/Wound Care/Special Instructions: DISCHARGE INSTRUCTIONS: 1. No driving for 4 weeks, or until physician gives their ok. 2. The patient should sleep in their own bed, no medical bed needed. 3. Stairs are not an issue. If the bedroom is upstairs, it is advised that the patient go up at night and down in the morning for the first week. Go slowly, using handrail and take 1 step at a time. 4. ANGEL hose are to be worn for 30 days or until physician discontinues. 5. Heart hugger is to be worn 100% of the time until physician discontinues.(except when showering) 6. No lifting, pushing, or pulling more than 10 pounds for 12 weeks. The physician will advise of any restriction changes. 7. The patient is expected to continue the prescribed walking program. 8. Continue pain control per as needed orders. 9. Continue with incentive spirometry and splinting/heart hugger until otherwise directed by the physician. 10. Must shower daily using liquid antibacterial soap and a separate white washcloth for each individual incision. 11. Routine sternal incision care. No powders, lotions, ointments on incisions. No dressings are necessary on incisions unless they are draining. Dermabond tape is to remain on sternal incision until surgeon follow-up. 12. Please call surgeon/COMPOSITION FLOOR LAYER for temp greater than 101 F or purulent drainage from incisions. 13. All prescriptions given by surgeon for 30 days. Refills need to be filled through patient care provider/primary care physician. 14. A Red armband has been placed on the patient. It should be worn for 30 days post surgery and will be removed by the cardiac surgeons. If an ER visit is necessary, please make sure the number on the Red armband is called. 15. You have been referred to and are expected to begin Cardiac Rehab in approximately 4-6 weeks. HOME HEALTH SERVICES TO PROVIDE: RN SKILLED HOME CARE SERVICES FOR POST-OP SURGICAL PATIENTS WITH THE FOLLOWING: Coronary Artery Bypass Surgery (CABG), Mitral Valve Repl acement/Repair ( MVR), Aortic Valve Replacement/Repair (AVR) RN TO CONTINUE EDUCATION FROM ``ROAD TO A HEALTH HEART PATIENT EDUCATION MANUAL (GIVEN TO PATIENT IN THE HOSPITAL) MEDICATION RECONCILIATION WITH EDUCATION NEEDED ON FIRST HOME VISIT EMPHASIZE IMPORTANCE OF WEARING BREAST SUPPORT/HEART HUGGER ENCOURAGE USE OF INCENTIVE SPIROMETER 10 X EVERY HOUR WHILE AWAKE ENCOURAGE UTILIZATION OF LOWER EXTREMITY COMPRESSION STOCKINGS/ANGEL HOSE and ELEVATE LEGS ABOVE LEVEL OF HEART WHILE AT REST. ENCOURAGE AMBULATION 3-5x/day INCREASING TOLERATES, WHILE AVOIDING EXTREMES IN TEMPERATURE FREQUENCY: RN TO OPEN THE PATIENT WITHIN 24 HOURS OF DISCHARGE FROM THE HOSPITAL WITH TELEHEALTH INSTALLED AT [facility], RN TO VISIT 2-3 X A WEEK FOR 4 WEEKS ESTABLISHED BY PATIENT NEEDS. LABORATORY: CBC, CMP TO BE DRAWN ON THE THIRD DAY HOME, (RAN STAT) FAX RESULTS TO [phone]. TELEHEALTH PARAMETERS: WEIGHT: NOTIFY MD OF WEIGHT GAIN OF 2 LBS IN 24 HOURS OR 5 LBS IN ONE WEEK HR: NOTIFY MD OF HR <55 BPM OR HR>100 BPM BP: NOTIFY MD IF BP <90/55 OR BP>140/100 O2 SAT: NOTIFY MD IF PO2<93% ON ROOM AIR SEND TELEHEALTH REPORT TO DEPUTY ASSESSOR AND CARDIOVASCULAR SURGEON THE FIRST WEEK OF CARE AND THEN BI-WEEKLY. PLEASE ADDITIONALLY COMMUNICATE ANY ABNORMALS AND NEW FINDINGS TO THE SURGEONS OFFICE. For any questions or concerns please call medical economics consultant Ro @ or Kar @ Discharge Disposition: HOME WITH HOME HEALTH SERVICES
--- NOTE | 2020-08-19 14:55 | P.PN ---
Subjective Progress Note Date: 08/19/20 HISTORY OF PRESENT ILLNESS: Patient is status post CABG 2. Patient examined this morning. She is sitting up in the chair. She denies chest pain or pressure. She denies shortness of breath. Patient has been ambulating in the hallway. Vital signs stable. PHYSICAL EXAM: VITAL SIGNS: Reviewed. GENERAL: Well-developed in no acute distress. NECK: Supple. No JVD or thyromegaly LUNGS: Respirations even and unlabored. Lungs diminished bilaterally. HEART: Regular rate and rhythm. S1 and S2 heard. Sternal incision clean and dry without drainage. EXTREMITIES: Normal range of motion. No clubbing or cyanosis. Peripheral pulses intact. 1+ bilateral lower extremity edema ASSESSMENT: Coronary artery disease, s/p CABG x 2 Hypertension Hyperlipidemia Pulmonary fibrosis Obesity: BMI 38.1 PLAN: Continue postoperative management per CTS Continue current cardiac medications Increase activity as tolerated Encouraged use of IS Further recommendations pending patient course Nurse practitioner note has been reviewed by physician. Signing provider agrees with the documented findings, assessment, and plan of care. Objective - Vital Signs Vital signs: Vital Signs Temp 98.3 F 08/19/20 11:59 Pulse 80 08/19/20 11:59 Resp 18 08/19/20 11:59 BP 97/46 08/19/20 11:59 Pulse Ox 95 08/19/20 11:59 Intake & Output 08/18/20 08/19/20 08/19/20 18:59 06:59 18:59 Intake Total 1275 200 Output Total 1000 400 500 Balance 275 -400 -300 Weight 86.5 kg Intake: Oral 1275 200 Output: Urine 1000 400 500 Other: Voiding Method Toilet Toilet Toilet # Voids 1 1 # Bowel Movements 0 ABP, PAP, CO, CI - Last Documented Arterial Blood Pressure 95/50 Pulmonary Artery Pressure 37/16 Cardiac Output 6 Cardiac Index 3.4 - Labs CBC & Chem 7: 08/19/20 09:03 08/19/20 09:03 Labs: Abnormal Lab Results - Last 24 Hours (Table) 08/18/20 08/18/20 08/19/20 Range/Units 16:50 20:07 09:03 WBC 12.9 H (3.8-10.6) k/uL RBC 2.71 L (3.80-5.40) m/uL Hgb 8.0 L (11.4-16.0) gm/dL Hct 25.4 L (34.0-46.0) % RDW 15.8 H (11.5-15.5) % Sodium (137-145) mmol/L Chloride (98-107) mmol/L Glucose (74-99) mg/dL POC Glucose (mg/dL) 115 H 152 H (75-99) mg/dL Magnesium (1.6-2.3) mg/dL 08/19/20 08/19/20 Range/Units 09:03 11:51 WBC (3.8-10.6) k/uL RBC (3.80-5.40) m/uL Hgb (11.4-16.0) gm/dL Hct (34.0-46.0) % RDW (11.5-15.5) % Sodium 127 L (137-145) mmol/L Chloride 91 L (98-107) mmol/L Glucose 110 H (74-99) mg/dL POC Glucose (mg/dL) 123 H (75-99) mg/dL Magnesium 2.5 H (1.6-2.3) mg/dL
[2020-08-19 15:23] VITALS: BP 113/56
[2020-08-19 15:29] VITALS: RESP 16
[2020-08-19 15:45] VITALS: PULSE 87
--- NOTE | 2020-08-20 15:41 | CDI ---
Documentation Clarification Form Date: 08/20/2020 03:30:48 PM From: Cynthia Mcduffie RN, CCDS Admit Date: 08/06/2020 02:17:00 PM Patient Name: Becky Alvarenga Visit Number: [id number] Discharge Date: 08/19/2020 04:31:00 PM ATTENTION: The Clinical Documentation Specialists (CDI) and [facility] Coding Staff appreciate your assistance in clarifying documentation. Please respond to the clarification below the line at the bottom and electronically sign. The CDI & [facility] Coding staff will review the response and follow-up if needed. Please note: Queries are made part of the Legal Health Record. If you have any questions, please contact the author of this message via ITS. Dr. Anival Metcalf Post-op Urinary retention is documented in the 08/14 Urology Consult and requires further specificity. Patients Admitting Diagnosis: Hyponatremia Post-Operative Diagnosis: Left main CAD Procedure performed: CABG History/Risk Factors: Anesthesia for CABG, Hyponatremia, HTN, obesity, CAD, postoperative acute blood loss anemia, postoperative hypotension, pre-op ARB use Clinical Indicators: 08/14 Urology Consult: "urology is consulted for urinary retention. Yu was removed on August 12.Patient has been able to void but having slightly elevated PVR at 350s.She's been able to void 350-400 mL with PVR in 350s. No voiding issues a baseline Treatment: 08/14 Urology Consult: Plan: Continue to measure PVR after patient voids, if PVR is greater than 400 perform CIC. If the next 24-hour patient's PVR c trend upward then recommend place a Yu for 1 week -Can follow-up as an outpatient in Urology Clinic in 1-2 weeks In order to accurately reflect this patients severity of illness, please clarify if the postop urinary retention. Postop urinary retention expected Due to anesthesia Due to other (please specify) Postop urinary retention unexpected Due to anesthesia Due to other (please specify) Other please specify Unable to determine (Last Revision: August 2019) Post op Urinary retention expected due to anesthesia MTDD
== END 2020-08-19 16:31 | disposition home health service (06) | DRG 981 ==
LOC: EC 12:21 → 4SSUR 14:17 → 2SICU 08-10 08:54 → 3SCARD 08-14 18:31
PROVIDERS: ADMIT Internal Medicine Geriatric Medicine; ATTEND Surgery
PROC: 02100Z9 Bypass Coronary Artery, One Artery from Left Internal Mammary, Open Approach (ICD-10-PCS; principal; 2020-08-10 08:00)
PROC: 3E043XZ Introduction of Vasopressor into Central Vein, Percutaneous Approach (ICD-10-PCS; principal; 2020-08-10 08:00)
PROC: 5A1221Z Performance of Cardiac Output, Continuous (ICD-10-PCS; principal; 2020-08-10 08:00)
PROC: 02L70CK Occlusion of Left Atrial Appendage with Extraluminal Device, Open Approach (ICD-10-PCS; principal; 2020-08-10 08:00)
PROC: 021009W Bypass Coronary Artery, One Artery from Aorta with Autologous Venous Tissue, Open Approach (ICD-10-PCS; principal; 2020-08-10 08:00)
PROC: 06BQ4ZZ Excision of Left Saphenous Vein, Percutaneous Endoscopic Approach (ICD-10-PCS; principal; 2020-08-10 08:00)
PROC: 30243N1 Transfusion of Nonautologous Red Blood Cells into Central Vein, Percutaneous Approach (ICD-10-PCS; principal; 2020-08-10 08:00)
PROC: 4A033BC Measurement of Arterial Pressure, Coronary, Percutaneous Approach (ICD-10-PCS; principal; 2020-08-10 08:00)
PROC: 4A133B1 Monitoring of Arterial Pressure, Peripheral, Percutaneous Approach (ICD-10-PCS; 2020-08-10 08:00)
PROC: B24BZZ4 Ultrasonography of Heart with Aorta, Transesophageal (ICD-10-PCS; 2020-08-10 08:00)
PROC: 05HM33Z Insertion of Infusion Device into Right Internal Jugular Vein, Percutaneous Approach (ICD-10-PCS; 2020-08-10 08:00)
PROC: 4A133J1 Monitoring of Arterial Pulse, Peripheral, Percutaneous Approach (ICD-10-PCS; 2020-08-10 08:00)
PROC: 03HY32Z Insertion of Monitoring Device into Upper Artery, Percutaneous Approach (ICD-10-PCS; 2020-08-10 08:00)
DX: E87.1 Hypo-osmolality and hyponatremia (principal); J96.01 Acute respiratory failure with hypoxia; M50.00 Cervical disc disorder with myelopathy, unspecified cervical region; B37.0 Candidal stomatitis; D62 Acute posthemorrhagic anemia; J98.11 Atelectasis; E66.01 Morbid (severe) obesity due to excess calories; I11.9 Hypertensive heart disease without heart failure; I95.9 Hypotension, unspecified; J84.10 Pulmonary fibrosis, unspecified; I25.10 Atherosclerotic heart disease of native coronary artery without angina pectoris; Z20.822 Contact with and (suspected) exposure to COVID-19; E87.70 Fluid overload, unspecified; R33.0 Drug induced retention of urine; T41.45XA Adverse effect of unspecified anesthetic, initial encounter; E86.9 Volume depletion, unspecified; T50.2X5A Adverse effect of carbonic-anhydrase inhibitors, benzothiadiazides and other diuretics, initial encounter; E86.1 Hypovolemia; J45.20 Mild intermittent asthma, uncomplicated; E78.5 Hyperlipidemia, unspecified; M48.02 Spinal stenosis, cervical region; M19.90 Unspecified osteoarthritis, unspecified site; R53.81 Other malaise; Z68.35 Body mass index [BMI] 35.0-35.9, adult; Z79.82 Long term (current) use of aspirin; Z79.899 Other long term (current) drug therapy; Z87.891 Personal history of nicotine dependence; Z90.49 Acquired absence of other specified parts of digestive tract; Z87.19 Personal history of other diseases of the digestive system; Z90.89 Acquired absence of other organs; Z98.51 Tubal ligation status; Z85.828 Personal history of other malignant neoplasm of skin; Z86.73 Personal history of transient ischemic attack (TIA), and cerebral infarction without residual deficits; Z96.1 Presence of intraocular lens; Z98.41 Cataract extraction status, right eye; Z98.42 Cataract extraction status, left eye; Z98.1 Arthrodesis status; Z87.2 Personal history of diseases of the skin and subcutaneous tissue; Z71.3 Dietary counseling and surveillance; Z98.890 Other specified postprocedural states; Z91.040 Latex allergy status; Z91.048 Other nonmedicinal substance allergy status; Z82.49 Family history of ischemic heart disease and other diseases of the circulatory system; Z80.3 Family history of malignant neoplasm of breast; Z80.7 Family history of other malignant neoplasms of lymphoid, hematopoietic and related tissues
CPT/HCPCS: 36415; 71045; 71046; 80048; 80053; 80061; 80074; 81001; 81003; 82330; 82533; 82805; 83036; 83540; 83550; 83735; 83935; 84132; 84295; 84300; 84443; 85025; 85027; 85520; 85610; 85730; 86850; 86891; 86900; 86901; 86920; 87070; 87086; 87635; 93005; 93922; 94002; 94640; 94760; 99285

== ENCOUNTER 2020-08-22 21:26 | Inpatient (IN) | payer MEDICARE ==
[2020-08-22] MEDS ORDERED: SODIUM CHLORIDE 0.9% 500 ML 500 ML IV ONE (21:50)
[2020-08-22 21:59] LABS: Basophils % (A) 0 %; Eosinophils # (A) 0.2 k/uL (0-0.7); Eosinophils % (A) 2 %; HCT 21.2 % (34.0-46.0); Hypochromasia Moderate; Lymphocytes # (A) 0.5 k/uL (1.0-4.8); Lymphocytes % (A) 5 %; MCH 29.9 pg (25.0-35.0); MCHC 32.7 g/dL (31.0-37.0); MCV 91.5 fL (80.0-100.0); Mean Platelet Volume 7.7; Monocytes # (A) 0.2 k/uL (0-1.0); Monocytes % (A) 2 %; Neutrophils # (A) 9.5 k/uL (1.3-7.7); Neutrophils % (A) 90 %; Platelet Count 305 k/uL (150-450); Poikilocytosis Slight; RBC 2.32 m/uL (3.80-5.40); RDW 15.1 % (11.5-15.5); WBC 10.5 k/uL (3.8-10.6)
[2020-08-22 22:09] LABS: Albumin 2.6 g/dL (3.5-5.0); Calcium 7.7 mg/dL (8.4-10.2); Potassium 3.8 mmol/L (3.5-5.1); Total Bilirubin 1.4 mg/dL (0.2-1.3); Total Protein 5.1 g/dL (6.3-8.2)
--- NOTE | 2020-08-22 22:09 | ED ---
General Adult HPI - General Chief complaint: Shortness of Breath Stated complaint: MARLIN Time Seen by Provider: 08/22/20 21:28 Source: patient, EMS Mode of arrival: EMS Limitations: no limitations - History of Present Illness Initial comments: Patient presents the ED by ambulance for evaluation. Patient reports having difficulty breathing/dyspnea since this morning. Patient also reportedly had low oxygen saturation readings per EMS. Patient is 12 days status post cardiac bypass surgery. Patient denies having any pain, fever or chills, headache, fo marlin neuro deficit, chest pain, cough or cold symptoms, palpitations, dizziness, nausea/vomiting/diaphoresis, abdominal pain, bloody or melanotic stool, dysuria or urinary symptoms, decreased urine output, leg or calf pain, or any other symptoms or complaints. - Related Data Home Medications Medication Instructions Recorded Confirmed Ipratropium-Albuterol Nebulize 3 ml INHALATION RT-QID PRN 05/18/15 08/22/20 [Duoneb 0.5 mg-3 mg/3 ml Soln] Ibuprofen [Motrin] 800 mg PO TID PRN 12/05/17 08/22/20 Albuterol Sulfate [Albuterol 2 puff PO RT-Q6H PRN 08/06/20 08/22/20 Sulfate Hfa] Previous Rx's Medication Instructions Recorded Acetaminophen Tab [Tylenol] 650 mg PO Q4HR PRN tab 08/19/20 Ascorbic Acid [Vitamin C] 500 mg PO DAILY@1200 #7 tab 08/19/20 Aspirin 325 mg PO DAILY #30 tab 08/19/20 Atorvastatin [Lipitor] 40 mg PO DAILY #30 tab 08/19/20 Clopidogrel [Plavix] 75 mg PO DAILY #30 tab 08/19/20 Ferrous Sulfate [Iron (65 MG 325 mg PO W/LUNCH #7 tab 08/19/20 Elemental)] Furosemide [Lasix] 40 mg PO DAILY #7 tablet 08/19/20 Losartan [Cozaar] 25 mg PO DAILY@1200 #30 tab 08/19/20 Metoprolol Tartrate [Lopressor] 75 mg PO BID #180 tab 08/19/20 Pantoprazole [Protonix] 40 mg PO AC-BRKFST #30 tablet. 08/19/20 Potassium Chloride ER [K-Dur 10] 10 meq PO DAILY #7 tab 08/19/20 Sennosides-Docusate Sodium 2 each PO HS PRN #14 tab 08/19/20 [Senokot-S] guaiFENesin-DM 600/30MG [Mucinex 2 each PO Q12HR #14 tab.er.12h 08/19/20 Dm] Allergies Allergy/AdvReac Type Severity Reaction Status Date / Time adhesive Allergy blisters Verified 08/22/20 22:40 latex Allergy Rash/Hives Verified 08/22/20 22:40 Review of Systems ROS Statement: Those systems with pertinent positive or pertinent negative responses have been documented in the HPI. ROS Other: All systems not noted in ROS Statement are negative. Past Medical History Past Medical History: Asthma, Hyperlipidemia, Hypertension Additional Past Medical History / Comment(s): skin cancer with removals, arthritis multiple joints, back and cervical pain, ?TIA in her teens-shows up on scan?, pulmonary fibrosis History of Any Multi-Drug Resistant Organisms: None Reported Past Surgical History: Cholecystectomy, Coronary Bypass/CABG, Heart Catheterization, Tonsillectomy, Tubal Ligation Additional Past Surgical History / Comment(s): 2 cardiac caths without intervention, bilateral cataract removal with lens implants, skin cancer removals, cyst removed from neck, colonoscopy, cervical fusion Past Anesthesia/Blood Transfusion Reactions: No Reported Reaction Additional Past Anesthesia/Blood Transfusion Reaction / Comment(s): Pt has never received blood. Past Psychological History: No Psychological Hx Reported Smoking Status: Former smoker Past Alcohol Use History: Occasional Past Drug Use History: None Reported - Past Family History Brother(s) Family Medical History: Coronary Artery Disease (CAD) Additional Family Medical History / Comment(s): "bad heart" aneurysm Sister(s) Family Medical History: Cancer Additional Family Medical History / Comment(s): breast cancer Mother Family Medical History: Cancer, Coronary Artery Disease (CAD) Additional Family Medical History / Comment(s): Lymphoma, had a pacemaker. Mother at the age of 92yrs. Father Family Medical History: Coronary Artery Disease (CAD), Myocardial Infarction (PA) Additional Family Medical History / Comment(s): Father of a PA at the age of 63 yrs, diagnosed with CAD in his early 50s. General Exam Limitations: no limitations General appearance: alert Head exam: Present: atraumatic, normocephalic Eye exam: Present: normal appearance, EOMI ENT exam: Present: mucous membranes moist Neck exam: Present: other (Trachea is in midline) Respiratory exam: Present: other (bilateral rales; mildly tachypneic; equal breath sounds bilaterally; midline sternal surgical wound without any evidence of infection). Absent: wheezes, stridor Cardiovascular Exam: Present: regular rate, normal rhythm, normal heart sounds, other (Normal radial pulses bilaterally) GI/Abdominal exam: Present: soft. Absent: distended, tenderness, guarding Extremities exam: Present: pedal edema, other (Negative Homans sign bilaterally). Absent: tenderness, calf tenderness Neurological exam: Present: alert, oriented X3. Absent: motor sensory deficit Psychiatric exam: Present: normal affect, normal mood Skin exam: Present: warm, dry, normal color Course Vital Signs 08/22/20 08/22/20 08/22/20 21:30 21:38 21:45 Temperature 98.6 F Pulse Rate 77 77 Respiratory 22 24 22 Rate Blood Pressure 100/72 83/37 O2 Sat by Pulse 97 96 Oximetry 08/22/20 08/22/20 22:00 22:15 Temperature Pulse Rate 75 75 Respiratory 20 22 Rate Blood Pressure 85/50 90/53 O2 Sat by Pulse 96 99 Oximetry - Reevaluation(s) Reevaluation #1: 08/22/20 23:15 Case, H&P, test results and ED management were discussed with CT surgery [employer] Ro. She agrees that the patient's symptoms are likely secondary to CHF. She recommends admitting the patient to her primary care service and placing Dr. Olivera (CT surgery) on consultation. She recommends observational admission. She has no further recommendations at this time. 08/22/20 23:16 Case, H&P, test results, ED management and my discussion with ARY Starr as above were discussed with Dr. Dubois. She accepts hospital admission. She requests to make the patient a full admission (not an observational admission). She requests consulting CT surgery, as well as cardiology. She requests Covid testing. She also recommends ordering Midodrine 10 mg PO TID and Lasix 40 mg every 12 hours. She has no further recommendations at this time. 08/22/20 23:34 Patient denies development of any new symptoms while in the ED. Patient and are aware the patient's test results and my discussions as above. Patient agrees with hospital admission at this time. EKG Findings - EKG Comments: EKG Findings:: Normal sinus rhythm, ventricular rate of 77 bpm, no ectopy, normal [place] and QRS intervals, normal QT interval, normal axis, no ST or T-wave abnormality, low voltage QRS Medical Decision Making - Medical Decision Making I suspect that the patient's symptoms/dyspnea are likely secondary to CHF. I suspect that the patient's elevated troponin is likely from her CABG, but will trend serial troponins. CT surgery has been consulted from the ED. Dr. Calixto has accepted hospital admission. An order for cardiology consultation has been placed as well. - Lab Data Result diagrams: 08/22/20 21:44 08/22/20 21:44 Lab Results 08/22/20 08/22/20 08/22/20 Range/Units 21:44 21:44 21:44 WBC 10.5 (3.8-10.6) k/uL RBC 2.32 L (3.80-5.40) m/uL Hgb 7.0 L (11.4-16.0) gm/dL Hct 21.2 L (34.0-46.0) % MCV 91.5 (80.0-100.0) fL MCH 29.9 (25.0-35.0) pg MCHC 32.7 (31.0-37.0) g/dL RDW 15.1 (11.5-15.5) % Plt Count 305 (150-450) k/uL MPV 7.7 Neutrophils % 90 % Lymphocytes % 5 % Monocytes % 2 % Eosinophils % 2 % Basophils % 0 % Neutrophils # 9.5 H (1.3-7.7) k/uL Lymphocytes # 0.5 L (1.0-4.8) k/uL Monocytes # 0.2 (0-1.0) k/uL Eosinophils # 0.2 (0-0.7) k/uL Basophils # 0.0 (0-0.2) k/uL Hypochromasia Moderate Poikilocytosis Slight PT 10.9 (9.0-12.0) sec INR 1.0 (<1.2) APTT 25.2 (22.0-30.0) sec Sodium 125 L (137-145) mmol/L Potassium 3.8 (3.5-5.1) mmol/L Chloride 94 L (98-107) mmol/L Carbon Dioxide 23 (22-30) mmol/L Anion Gap 8 mmol/L BUN 30 H (7-17) mg/dL Creatinine 1.60 H (0.52-1.04) mg/dL Est GFR (CKD-EPI)AfAm 36 (>60 ml/min/1.73 sqM) Est GFR (CKD-EPI)NonAf 32 (>60 ml/min/1.73 sqM) Glucose 91 (74-99) mg/dL Plasma Lactic Acid Garrett (0.7-2.0) mmol/L Calcium 7.7 L (8.4-10.2) mg/dL Total Bilirubin 1.4 H (0.2-1.3) mg/dL AST 57 H (14-36) U/L ALT 40 H (4-34) U/L Alkaline Phosphatase 118 (38-126) U/L Troponin I (0.000-0.034) ng/mL NT-Pro-B Natriuret Pep pg/mL Total Protein 5.1 L (6.3-8.2) g/dL Albumin 2.6 L (3.5-5.0) g/dL 08/22/20 08/22/20 08/22/20 Range/Units 21:44 21:44 21:44 WBC (3.8-10.6) k/uL RBC (3.80-5.40) m/uL Hgb (11.4-16.0) gm/dL Hct (34.0-46.0) % MCV (80.0-100.0) fL MCH (25.0-35.0) pg MCHC (31.0-37.0) g/dL RDW (11.5-15.5) % Plt Count (150-450) k/uL MPV Neutrophils % % Lymphocytes % % Monocytes % % Eosinophils % % Basophils % % Neutrophils # (1.3-7.7) k/uL Lymphocytes # (1.0-4.8) k/uL Monocytes # (0-1.0) k/uL Eosinophils # (0-0.7) k/uL Basophils # (0-0.2) k/uL Hypochromasia Poikilocytosis PT (9.0-12.0) sec INR (<1.2) APTT (22.0-30.0) sec Sodium (137-145) mmol/L Potassium (3.5-5.1) mmol/L Chloride (98-107) mmol/L Carbon Dioxide (22-30) mmol/L Anion Gap mmol/L BUN (7-17) mg/dL Creatinine (0.52-1.04) mg/dL Est GFR (CKD-EPI)AfAm (>60 ml/min/1.73 sqM) Est GFR (CKD-EPI)NonAf (>60 ml/min/1.73 sqM) Glucose (74-99) mg/dL Plasma Lactic Acid Garrett 2.0 (0.7-2.0) mmol/L Calcium (8.4-10.2) mg/dL Total Bilirubin (0.2-1.3) mg/dL AST (14-36) U/L ALT (4-34) U/L Alkaline Phosphatase (38-126) U/L Troponin I 0.076 H* (0.000-0.034) ng/mL NT-Pro-B Natriuret Pep 38211 pg/mL Total Protein (6.3-8.2) g/dL Albumin (3.5-5.0) g/dL - Radiology Data Radiology results: report reviewed (Chest x-ray: Congestive heart failure with small pleural effusions) Disposition Clinical Impression: CHF (congestive heart failure), Elevated troponin, Anemia, Hyponatremia Disposition: ADMITTED IP TO THIS HOSP Condition: Stable Referrals: Jamie Avila MD [STAFF PHYSICIAN] - 1-2 days Time of Disposition: 23:32
[2020-08-22 22:14] LABS: Partial Thromboplastin Time 25.2 sec (22.0-30.0); Prothrombin Time 10.9 sec (9.0-12.0)
--- NOTE | 2020-08-22 22:18 | XR ---
EXAMINATION TYPE: XR chest 1V portable DATE OF EXAM: 08/22/2020 COMPARISON: 08/19/2020 HISTORY: Short of breath. Cardiac surgery. TECHNIQUE: FINDINGS: There is pulmonary interstitial edema. Heart is enlarged. There are sternal wires. There is mild blunting of the costophrenic angles. There are chest leads. There is multilevel cervical spine fusion surgery. IMPRESSION: congestive heart failure with small pleural effusions. Chest is not significantly different than rec ent exam.
[2020-08-22] MEDS ORDERED: ASPIRIN 81 MG PO STA (22:37)
[2020-08-22] MEDS ORDERED: FUROSEMIDE 10 MG/ML 4 ML VIAL IV STA (22:37)
[2020-08-22] MEDS ORDERED: NALOXONE 0.4 MG/ML 1 ML VIAL IV PRN (23:27)
[2020-08-22] MEDS ORDERED: HYDROmorphone 0.5 MG/0.5 ML SYRINGE IVP STA (23:27)
[2020-08-22] MEDS: FUROSEMIDE 10 MG/ML 4 ML VIAL IV SCH (23:37)
[2020-08-22] MEDS ORDERED: ONDANSETRON 4 MG/2 ML VIAL IVP STA (23:38)
[2020-08-23 06:06] LABS: Basophils % (A) 0 %; Eosinophils # (A) 0.1 k/uL (0-0.7); Eosinophils % (A) 1 %; HCT 24.1 % (34.0-46.0); HGB 7.5 gm/dL (11.4-16.0); Hypochromasia Marked; Lymphocytes # (A) 0.4 k/uL (1.0-4.8); Lymphocytes % (A) 4 %; MCH 29.7 pg (25.0-35.0); MCHC 31.2 g/dL (31.0-37.0); MCV 95.1 fL (80.0-100.0); Mean Platelet Volume 8.2; Monocytes # (A) 0.5 k/uL (0-1.0); Monocytes % (A) 5 %; Neutrophils % (A) 86 %; Platelet Count 310 k/uL (150-450); Poikilocytosis Slight; RBC 2.54 m/uL (3.80-5.40); RDW 15.2 % (11.5-15.5); WBC 9.3 k/uL (3.8-10.6)
[2020-08-23 06:13] LABS: Albumin 2.6 g/dL (3.5-5.0); Calcium 7.8 mg/dL (8.4-10.2); Potassium 4.2 mmol/L (3.5-5.1); Total Bilirubin 1.5 mg/dL (0.2-1.3); Total Protein 5.3 g/dL (6.3-8.2)
[2020-08-23] MEDS ORDERED: guaiFENesin-DM 600/30MG 1 EACH TAB.ER.12H PO PRN (06:56)
[2020-08-23] MEDS ORDERED: SENNOSIDES-DOCUSATE SODIUM 1 EACH TAB PO PRN (06:56)
[2020-08-23] MEDS: PANTOPRAZOLE 40 MG TABLET PO SCH (07:14)
--- NOTE | 2020-08-23 07:52 | XR ---
EXAMINATION TYPE: XR chest 2V DATE OF EXAM: 08/23/2020 COMPARISON: 08/22/2020 TECHNIQUE: PA and lateral views submitted. HISTORY: Bilateral pleural effusion FINDINGS: Diffuse interstitial pattern, cardiomegaly with postoperative change. Bilateral infiltrate and pleura l effusion. No pneumothorax. Postsurgical change overlying the cervical spine. Arthropathy of the skip ulders. IMPRESSION: 1. Diffuse pleural-parenchymal changes correlate for CHF or diffuse interstitial pneumonia.
[2020-08-23] MEDS: ASPIRIN 325 MG TAB PO SCH (07:59)
[2020-08-23] MEDS: FERROUS SULFATE 325 MG TAB PO SCH (07:59)
[2020-08-23] MEDS: ASCORBIC ACID 500 MG TAB PO SCH (07:59)
[2020-08-23] MEDS: CLOPIDOGREL 75 MG TAB PO SCH (07:59)
[2020-08-23] MEDS: ATORVASTATIN 40 MG TAB PO SCH (08:00)
[2020-08-23] MEDS: POTASSIUM CHLORIDE ER 10 MEQ TAB.ER.PRT PO SCH (08:00)
[2020-08-23] MEDS: MIDODRINE 5 MG TAB PO SCH ×3 (08:00→21:50)
[2020-08-23] MEDS: ACETAMINOPHEN TAB 325 MG TAB PO PRN ×4 (08:01→21:51)
--- NOTE | 2020-08-23 08:51 | P.GSCN ---
History of Present Illness Consult date: 08/23/20 Reason for Consult: Known to our service from recent open heart surgery Requesting physician: Monica Dubois History of present illness: This is a 75-year-old active female who follows on an outpatient basis with Dr. Rich Avila for primary care, Dr. Sloan for cardiology, and Dr. Guadalupe for pulmonary fibrosis. She has a previous medical history of coronary artery disease with left main stenosis status post 2 vessel CABG on 08/10/2020 with expected postoperative acute blood loss anemia, hypotension, and urinary retention as well as candidal stomatititus, hyponatremia, pulmonary fibrosis, asthma, hypertension, hyperlipidemia, previous tobacco dependence, obesity, osteoarthritis, cervical stenosis post anterior cervical disc decompression, discectomy and fusion, TIA as a child, and family history of premature coronary artery disease. She was discharged to home with home care on 08/19/2020 in stable condition. Over the previous couple of days she stated she's had increasing shortness of breath and she presented to [facility] emergency room last night. Per the family she was hypoxic with saturations in the mid 80s, all documented oxygen saturations here have been in the 90s on 3-4 L of oxy gen. She was given 500 mL fluid bolus in the emergency room followed by 40 mg of IV Lasix. Chest x-ray completed demonstrated pulmonary vascular congestion with bilateral pleural effusions. WBC 10.5, hemoglobin 7, BUN 30, creatinine 1.6, sodium 125, lactic acid 2, BNP 13,300, slightly elevated troponins which is most likely due to recent open heart surgery, and negative for coronavirus. She denies chest pain other than incisional pain, nausea, vomiting, diarrhea, or any other symptoms. She does admit to high-dose ibuprofen use for pain at home. She remains afebrile, sinus rhythm with heart rate in the 70s to 90s, and borderline hypotensive although she has been on Cozaar 25 mg daily as well as Lopressor 75 mg twice daily in addition to Lasix. She was admitted to medicine with consultation placed to cardiology and cardiothoracic surgery with initiation of Midodrine for hypotension and orders for Lasix twice daily IV with Cozaar and Lopressor on hold. Review of Systems Review of systems was completed and was negative except as noted - Respiratory Reports as per HPI, Reports cough, Reports dyspnea Past Medical History Past Medical History: Asthma, Coronary Artery Disease (CAD), Hyperlipidemia, Hypertension, Osteoarthritis (OA) Additional Past Medical History / Comment(s): skin cancer with removals, arthritis multiple joints, back and cervical pain, ?TIA in her teens-shows up on scan?, pulmonary fibrosis, hyponatremia History of Any Multi-Drug Resistant Organisms: None Reported Past Surgical History: Cholecystectomy, Coronary Bypass/CABG, Heart Catheterization, Tonsillectomy, Tubal Ligation Additional Past Surgical History / Comment(s): 08-10-20 CABG, 2 cardiac caths without intervention, bilateral cataract removal with lens implants, skin cancer removals, cyst removed from neck, colonoscopy, cervical fusion Past Anesthesia/Blood Transfusion Reactions: No Reported Reaction Additional Past Anesthesia/Blood Transfusion Reaction / Comm: Pt has never received blood. Past Psychological History: No Psychological Hx Reported Smoking Status: Former smoker Past Alcohol Use History: None Reported Past Drug Use History: None Reported - Past Family History Brother(s) Family Medical History: Coronary Artery Disease (CAD) Additional Family Medical History / Comment(s): "bad heart" aneurysm Sister(s) Family Medical History: Cancer Additional Family Medical History / Comment(s): breast cancer Mother Family Medical History: Cancer, Coronary Artery Disease (CAD) Additional Family Medical History / Comment(s): Lymphoma, had a pacemaker. Mother at the age of 92yrs. Father Family Medical History: Coronary Artery Disease (CAD), Myocardial Infarction (HI) Additional Family Medical History / Comment(s): Father of a HI at the age of 63 yrs, diagnosed with CAD in his early 50s. Medications and Allergies Home Medications Medication Instructions Recorded Confirmed Type Ipratropium-Albuterol Nebulize 3 ml INHALATION RT-QID PRN 05/18/15 08/22/20 History [Duoneb 0.5 mg-3 mg/3 ml Soln] Ibuprofen [Motrin] 800 mg PO TID PRN 12/05/17 08/22/20 History Albuterol Sulfate [Albuterol 2 puff PO RT-Q6H PRN 08/06/20 08/22/20 History Sulfate Hfa] Acetaminophen Tab [Tylenol] 650 mg PO Q4HR PRN tab 08/19/20 08/22/20 Rx Ascorbic Acid [Vitamin C] 500 mg PO DAILY@1200 #7 tab 08/19/20 08/22/20 Rx Aspirin 325 mg PO DAILY #30 tab 08/19/20 08/22/20 Rx Atorvastatin [Lipitor] 40 mg PO DAILY #30 tab 08/19/20 08/22/20 Rx Clopidogrel [Plavix] 75 mg PO DAILY #30 tab 08/19/20 08/22/20 Rx Ferrous Sulfate [Iron (65 MG 325 mg PO W/LUNCH #7 tab 08/19/20 08/22/20 Rx Elemental)] Furosemide [Lasix] 40 mg PO DAILY #7 tablet 08/19/20 08/22/20 Rx Losartan [Cozaar] 25 mg PO DAILY@1200 #30 tab 08/19/20 08/22/20 Rx Metoprolol Tartrate [Lopressor] 75 mg PO BID #180 tab 08/19/20 08/22/20 Rx Pantoprazole [Protonix] 40 mg PO AC-BRKFST #30 tablet.dr 08/19/20 08/22/20 Rx Potassium Chloride ER [K-Dur 10] 10 meq PO DAILY #7 tab 08/19/20 08/22/20 Rx Sennosides-Docusate Sodium 2 each PO HS PRN #14 tab 08/19/20 08/22/20 Rx [Senokot-S] guaiFENesin-DM 600/30MG [Mucinex 2 each PO Q12HR #14 tab.er.12h 08/19/20 08/22/20 Rx Dm] Allergies Allergy/AdvReac Type Severity Reaction Status Date / Time adhesive Allergy blisters Verified 08/22/20 22:40 latex Allergy Rash/Hives Verified 08/22/20 22:40 Surgical - Exam Vital Signs Temp Pulse Resp BP Pulse Ox 98.6 F 77 22 100/72 97 08/22/20 21:30 08/22/20 21:30 08/22/20 21:30 08/22/20 21:30 08/22/20 21:30 - General well developed, well nourished, moderate distress, no pain, obese - Eyes PERRL, normal ocular movement - ENT no hearing loss - Neck no masses, no bruits, trachea midline - Respiratory Lungs sounds diminished in the bases bilaterally with faint expiratory wheezes heard anteriorly. Respirations even, slightly tachypneic. Currently on 3 L nasal cannula with oxygen saturation in the low 90s. No clubbing or cyanosis present. - Cardiovascular S1, S2 present. Regular rate and rhythm, sinus rhythm with heart rate in the 70s. Sternum stable. Palpable peripheral pulses bilaterally. Trace generalized edema present. No calf pain or tenderness noted. Heart hugger in place with patient demonstrating appropriate use. Antiembolism stockings, SCDs present. - Abdomen Abdomen: soft, non tender, bowel sounds - Genitourinary Deferred - Rectum Deferred - Integumentary Anterior chest incision well approximated without redness or drainage. Patient has serous drainage from her chest tube sites which is normal post open-heart surgery. Left lower extremity EVH site well approximated without redness or drainage. no rash, no growths - Neurologic normal coordination, normal sensation - Musculoskeletal normal gait, normal posture - Psychiatric oriented to time, oriented to person, oriented to place, speech is normal, memory intact Results - Labs 08/23/20 05:36 08/23/20 05:36 Abnormal Lab Results - Last 24 Hours (Table) 08/22/20 08/22/20 08/22/20 Range/Units 21:44 21:44 21:44 RBC 2.32 L (3.80-5.40) m/uL Hgb 7.0 L (11.4-16.0) gm/dL Hct 21.2 L (34.0-46.0) % Neutrophils # 9.5 H (1.3-7.7) k/uL Lymphocytes # 0.5 L (1.0-4.8) k/uL Sodium 125 L (137-145) mmol/L Chloride 94 L (98-107) mmol/L Carbon Dioxide (22-30) mmol/L BUN 30 H (7-17) mg/dL Creatinine 1.60 H (0.52-1.04) mg/dL Calcium 7.7 L (8.4-10.2) mg/dL Total Bilirubin 1.4 H (0.2-1.3) mg/dL AST 57 H (14-36) U/L ALT 40 H (4-34) U/L Alkaline Phosphatase (38-126) U/L Troponin I 0.076 H* (0.000-0.034) ng/mL Total Protein 5.1 L (6.3-8.2) g/dL Albumin 2.6 L (3.5-5.0) g/dL 08/23/20 08/23/20 08/23/20 Range/Units 00:16 05:36 05:36 RBC 2.54 L (3.80-5.40) m/uL Hgb 7.5 L (11.4-16.0) gm/dL Hct 24.1 L (34.0-46.0) % Neutrophils # 8.0 H (1.3-7.7) k/uL Lymphocytes # 0.4 L (1.0-4.8) k/uL Sodium (137-145) mmol/L Chloride (98-107) mmol/L Carbon Dioxide (22-30) mmol/L BUN (7-17) mg/dL Creatinine (0.52-1.04) mg/dL Calcium (8.4-10.2) mg/dL Total Bilirubin (0.2-1.3) mg/dL AST (14-36) U/L ALT (4-34) U/L Alkaline Phosphatase (38-126) U/L Troponin I 0.077 H* 0.094 H* (0.000-0.034) ng/mL Total Protein (6.3-8.2) g/dL Albumin (3.5-5.0) g/dL 08/23/20 Range/Units 05:36 RBC (3.80-5.40) m/uL Hgb (11.4-16.0) gm/dL Hct (34.0-46.0) % Neutrophils # (1.3-7.7) k/uL Lymphocytes # (1.0-4.8) k/uL Sodium 128 L (137-145) mmol/L Chloride 96 L (98-107) mmol/L Carbon Dioxide 18 L (22-30) mmol/L BUN 33 H (7-17) mg/dL Creatinine 1.99 H (0.52-1.04) mg/dL Calcium 7.8 L (8.4-10.2) mg/dL Total Bilirubin 1.5 H (0.2-1.3) mg/dL AST 63 H (14-36) U/L ALT 44 H (4-34) U/L Alkaline Phosphatase 128 H (38-126) U/L Troponin I (0.000-0.034) ng/mL Total Protein 5.3 L (6.3-8.2) g/dL Albumin 2.6 L (3.5-5.0) g/dL Diabetes panel 08/22/20 08/23/20 Range/Units 21:44 05:36 Sodium 125 L 128 L (137-145) mmol/L Potassium 3.8 4.2 (3.5-5.1) mmol/L Chloride 94 L 96 L (98-107) mmol/L Carbon Dioxide 23 18 L (22-30) mmol/L BUN 30 H 33 H (7-17) mg/dL Creatinine 1.60 H 1.99 H (0.52-1.04) mg/dL Glucose 91 77 (74-99) mg/dL Calcium 7.7 L 7.8 L (8.4-10.2) mg/dL AST 57 H 63 H (14-36) U/L ALT 40 H 44 H (4-34) U/L Alkaline Phosphatase 118 128 H (38-126) U/L Total Protein 5.1 L 5.3 L (6.3-8.2) g/dL Albumin 2.6 L 2.6 L (3.5-5.0) g/dL Calcium panel 08/22/20 08/23/20 Range/Units 21:44 05:36 Calcium 7.7 L 7.8 L (8.4-10.2) mg/dL Albumin 2.6 L 2.6 L (3.5-5.0) g/dL Pituitary panel 08/22/20 08/23/20 Range/Units 21:44 05:36 Sodium 125 L 128 L (137-145) mmol/L Potassium 3.8 4.2 (3.5-5.1) mmol/L Chloride 94 L 96 L (98-107) mmol/L Carbon Dioxide 23 18 L (22-30) mmol/L BUN 30 H 33 H (7-17) mg/dL Creatinine 1.60 H 1.99 H (0.52-1.04) mg/dL Glucose 91 77 (74-99) mg/dL Calcium 7.7 L 7.8 L (8.4-10.2) mg/dL Adrenal panel 08/22/20 08/23/20 Range/Units 21:44 05:36 Sodium 125 L 128 L (137-145) mmol/L Potassium 3.8 4.2 (3.5-5.1) mmol/L Chloride 94 L 96 L (98-107) mmol/L Carbon Dioxide 23 18 L (22-30) mmol/L BUN 30 H 33 H (7-17) mg/dL Creatinine 1.60 H 1.99 H (0.52-1.04) mg/dL Glucose 91 77 (74-99) mg/dL Calcium 7.7 L 7.8 L (8.4-10.2) mg/dL Total Bilirubin 1.4 H 1.5 H (0.2-1.3) mg/dL AST 57 H 63 H (14-36) U/L ALT 40 H 44 H (4-34) U/L Alkaline Phosphatase 118 128 H (38-126) U/L Total Protein 5.1 L 5.3 L (6.3-8.2) g/dL Albumin 2.6 L 2.6 L (3.5-5.0) g/dL - Imaging Chest x-ray: report reviewed, image reviewed EKG: image reviewed Assessment and Plan Assessment: 1. Shortness of breath, likely acute heart failure 2. Coronary artery disease with left main stenosis status post 2 vessel CABG on 08/10/2020 with expected postoperative acute blood loss anemia, hypotension, and urinary retention as well as candidal stomatititus 3. Hyponatremia 4. Pulmonary fibrosis, asthma 5. History of hypertension, currently hypotensive 6. Hyperlipidemia, treated 7. Previous tobacco dependence 8. Obesity 9. Osteoarthritis 10. Cervical stenosis post anterior cervical disc decompression, discectomy and fusion 11. TIA as a child 12. Family history of premature coronary artery disease Plan: The patient was seen and examined on the cardiac stepdown unit. Chart/diagnostics were reviewed. The case will be discussed in detail with Dr. Olivera. Recommend continuing her aspirin, statin, Plavix. Continue to diurese. Continue Midodrine for hypotension. Will need to restart beta sisi when able. Incentive spirometry ordered and should be encouraged. Increase activity, ambulate as tolerated, PT/OT ordered. Will monitor daily labs and x- rays. Daily weights, strict accurate intake and output. Avoid nephrotoxins, no ibuprofen. Continue sternal precautions. Appreciate cardiology recommendations. More recommendations to follow. Thank you Dr. Sherly for this consult. Time with Patient: Greater than 30
[2020-08-23] MEDS ORDERED: ALPRAZolam 0.25 MG TAB PO STA ×2 (09:35→17:08)
--- NOTE | 2020-08-23 10:34 | P.CRDCN ---
History of Present Illness Consult date: 08/23/20 Requesting physician: Monica Dubois Reason for Consult (text): CHF Chief complaint: worsening shortness of breath History of present illness: This is a pleasant 75-year-old female patient who follows in the office with Dr. Sloan. She has a history of CAD with left main stenosis status post 2 vessel CABG with HOLLAND to LAD and vein grafts to the OM on 08/10/[address] Sethi, hypotension, hyponatremia, pulmonary fibrosis for which she follows with Dr. Guadalupe, hypertension, hyperlipidemia, approximately [id number] history of smoking for which she has quit years ago, obesity, osteoarthritis, cervical stenosis status post surgical disc colectomy, decompression and fusion. She presented to the emergency department yesterday with worsening shortness of breath. She was apparently hypoxic with saturations in the 80s. Chest x-ray showed in [place] heart failure with small pleural effusions, not significantly different than recent exam. Repeat chest x-ray this morning showed diffuse pleural parenchymal changes correlate for CHF or diffuse interstitial pneumonia. EKG on admission showed sinus mechanism with evidence of possible prior infarct. Return values on admission showed normal white blood cell count, hemoglobin 7, sodium 125, BUN 30, creatinine 1.6, calcium 7.7, AST 57, ALT 40, NT proBNP 13,300 and troponins of 0.076, 0.077 and 0.094. Repeat labs this morning showed a sodium of 128 with a BUN of 33 and creatinine 1.99. Vital signs show hypotension. She is currently on aspirin, Lipitor, Plavix, Lasix 40 mg IV push every 12 hours and potassium supplements as well as midodrine. Metoprolol and losartan are currently on hold. Upon examination patient is sitting up in a chair. She complains of significant good cough with minimal sputum production. Continues to complain of shortness of breath however feels this is better. She has been experiencing PND at home. Unclear whether she has orthopnea as she's been sleeping in a recliner. She complains of lower extremity edema. She's had no palpitations, dizziness or lightheadedness. Past Medical History Past Medical History: Asthma, Coronary Artery Disease (CAD), Hyperlipidemia, Hypertension, Osteoarthritis (OA) Additional Past Medical History / Comment(s): skin cancer with removals, arthritis multiple joints, back and cervical pain, ?TIA in her teens-shows up on scan?, pulmonary fibrosis, hyponatremia History of Any Multi-Drug Resistant Organisms: None Reported Past Surgical History: Cholecystectomy, Coronary Bypass/CABG, Heart Catheterization, Tonsillectomy, Tubal Ligation Additional Past Surgical History / Comment(s): 08-10-20 CABG, 2 cardiac caths without intervention, bilateral cataract removal with lens implants, skin cancer removals, cyst removed from neck, colonoscopy, cervical fusion Past Anesthesia/Blood Transfusion Reactions: No Reported Reaction Additional Past Anesthesia/Blood Transfusion Reaction / Comment(s): Pt has never received blood. Past Psychological History: No Psychological Hx Reported Smoking Status: Former smoker Past Alcohol Use History: None Reported Past Drug Use History: None Reported - Past Family History Brother(s) Family Medical History: Coronary Artery Disease (CAD) Additional Family Medical History / Comment(s): "bad heart" aneurysm Sister(s) Family Medical History: Cancer Additional Family Medical History / Comment(s): breast cancer Mother Family Medical History: Cancer, Coronary Artery Disease (CAD) Additional Family Medical History / Comment(s): Lymphoma, had a pacemaker. Mother at the age of 92yrs. Father Family Medical History: Coronary Artery Disease (CAD), Myocardial Infarction ([place]) Additional Family Medical History / Comment(s): Father of a [place] at the age of 63 yrs, diagnosed with CAD in his early 50s. Medications and Allergies Home Medications Medication Instructions Recorded Confirmed Type Ipratropium-Albuterol Nebulize 3 ml INHALATION RT-QID PRN 05/18/15 08/22/20 History [Duoneb 0.5 mg-3 mg/3 ml Soln] Ibuprofen [Motrin] 800 mg PO TID PRN 12/05/17 08/22/20 History Albuterol Sulfate [Albuterol 2 puff PO RT-Q6H PRN 08/06/20 08/22/20 History Sulfate Hfa] Acetaminophen Tab [Tylenol] 650 mg PO Q4HR PRN tab 08/19/20 08/22/20 Rx Ascorbic Acid [Vitamin C] 500 mg PO DAILY@1200 #7 tab 08/19/20 08/22/20 Rx Aspirin 325 mg PO DAILY #30 tab 08/19/20 08/22/20 Rx Atorvastatin [Lipitor] 40 mg PO DAILY #30 tab 08/19/20 08/22/20 Rx Clopidogrel [Plavix] 75 mg PO DAILY #30 tab 08/19/20 08/22/20 Rx Ferrous Sulfate [Iron (65 MG 325 mg PO W/LUNCH #7 tab 08/19/20 08/22/20 Rx Elemental)] Furosemide [Lasix] 40 mg PO DAILY #7 tablet 08/19/20 08/22/20 Rx Losartan [Cozaar] 25 mg PO DAILY@1200 #30 tab 08/19/20 08/22/20 Rx Metoprolol Tartrate [Lopressor] 75 mg PO BID #180 tab 08/19/20 08/22/20 Rx Pantoprazole [Protonix] 40 mg PO AC-BRKFST #30 tablet.dr 08/19/20 08/22/20 Rx Potassium Chloride ER [K-Dur 10] 10 meq PO DAILY #7 tab 08/19/20 08/22/20 Rx Sennosides-Docusate Sodium 2 each PO HS PRN #14 tab 08/19/20 08/22/20 Rx [Senokot-S] guaiFENesin-DM 600/30MG [Mucinex 2 each PO Q12HR #14 tab.er.12h 08/19/20 08/22/20 Rx Dm] Allergies Allergy/AdvReac Type Severity Reaction Status Date / Time adhesive Allergy blisters Verified 08/22/20 22:40 latex Allergy Rash/Hives Verified 08/22/20 22:40 Physical Exam Vitals: Vital Signs Temp Pulse Pulse Resp BP BP Pulse Ox 08/23/20 09:50 97 22 103/44 97 08/23/20 07:56 97.9 F 96 22 81/44 91 L 08/23/20 04:00 98.6 F 73 18 97/51 94 L 08/23/20 01:28 80 20 08/23/20 01:04 90/58 08/23/20 00:53 97.5 F L 80 20 91/42 99 08/23/20 00:49 98 08/23/20 00:00 74 24 92/48 08/22/20 23:00 76 22 89/52 08/22/20 22:15 75 22 90/53 99 08/22/20 22:00 75 20 85/50 96 08/22/20 21:45 77 22 83/37 96 08/22/20 21:38 24 08/22/20 21:30 98.6 F 77 22 100/72 97 Intake and Output 08/22/20 08/23/20 08/23/20 22:59 06:59 14:59 Intake Total 120 Balance 120 Intake: Oral 120 Other: # Voids 1 Weight 81.647 kg 87.5 kg PHYSICAL EXAMINATION: This is a 75-year-old female in no apparent distress at the time of my examination. VITAL SIGNS: Blood pressure 103/44, heart rate 97, respirations 22, temp 97.9F. Patient is 97 % on 4 L via nasal cannula. HEENT: Head is atraumatic, normocephalic. Pupils are equal, round. Sclerae anicteric. Conjunctivae are clear. Mucous membranes of the mouth are moist. Neck is supple. There is no elevated jugular venous pressure. No carotid bruit is he [place]. CHEST EXAMINATION: Reveal diminished air entry throughout with expiratory wheezing. Respirations even and nonlabored. Heart program place HEART EXAMINATION: Heart regular, positive S1 and S2 with systolic murmur. ABDOMEN: Soft, nontender. Bowel sounds are heard. No organomegaly noted. EXTREMITIES:1+ peripheral pulses with evidence of mild peripheral edema and no calf tenderness noted. NEUROLOGIC EXAMINATION: Patient is awake, alert and oriented x3. Results 08/23/20 05:36 08/23/20 05:36 Cardiac Enzymes 08/22/20 08/22/20 08/23/20 Range/Units 21:44 21:44 00:16 AST 57 H (14-36) U/L Troponin I 0.076 H* 0.077 H* (0.000-0.034) ng/mL 08/23/20 08/23/20 Range/Units 05:36 05:36 AST 63 H (14-36) U/L Troponin I 0.094 H* (0.000-0.034) ng/mL Coagulation 08/22/20 Range/Units 21:44 PT 10.9 (9.0-12.0) sec APTT 25.2 (22.0-30.0) sec CBC 08/22/20 08/23/20 Range/Units 21:44 05:36 WBC 10.5 9.3 (3.8-10.6) k/uL RBC 2.32 L 2.54 L (3.80-5.40) m/uL Hgb 7.0 L 7.5 L (11.4-16.0) gm/dL Hct 21.2 L 24.1 L (34.0-46.0) % Plt Count 305 310 (150-450) k/uL Comprehensive Metabolic Panel 08/22/20 08/23/20 Range/Units 21:44 05:36 Sodium 125 L 128 L (137-145) mmol/L Potassium 3.8 4.2 (3.5-5.1) mmol/L Chloride 94 L 96 L (98-107) mmol/L Carbon Dioxide 23 18 L (22-30) mmol/L BUN 30 H 33 H (7-17) mg/dL Creatinine 1.60 H 1.99 H (0.52-1.04) mg/dL Glucose 91 77 (74-99) mg/dL Calcium 7.7 L 7.8 L (8.4-10.2) mg/dL AST 57 H 63 H (14-36) U/L ALT 40 H 44 H (4-34) U/L Alkaline Phosphatase 118 128 H (38-126) U/L Total Protein 5.1 L 5.3 L (6.3-8.2) g/dL Albumin 2.6 L 2.6 L (3.5-5.0) g/dL Current Medications Generic Name Dose Route Start Last Admin Trade Name Freq PRN Reason Stop Dose Admin Acetaminophen 650 mg 08/23/20 06:56 08/23/20 08:01 Acetaminophen Tab 325 Mg Tab PO 650 mg Q4HR PRN Administration Fever and/ or Mild Pain Albuterol/Ipratropium 3 ml 08/23/20 06:56 Ipratropium-Albuterol 3 Ml Neb INHALATION RT-QID PRN Shortness Of Breath Ascorbic Acid 500 mg 08/23/20 12:00 08/23/20 07:59 Ascorbic Acid 500 Mg Tab PO 500 mg DAILY@1200 TORIBIO Administration Aspirin 325 mg 08/23/20 09:00 08/23/20 07:59 Aspirin 325 Mg Tab PO 325 mg DAILY TORIBIO Administration Atorvastatin Calcium 40 mg 08/23/20 09:00 08/23/20 08:00 Atorvastatin 40 Mg Tab PO 40 mg DAILY TORIBIO Administration Clopidogrel Bisulfate 75 mg 08/23/20 09:00 08/23/20 07:59 Clopidogrel 75 Mg Tab PO 75 mg DAILY TORIBIO Administration Ferrous Sulfate 325 mg 08/23/20 12:30 08/23/20 07:59 Ferrous Sulfate 325 Mg Tab PO 325 mg W/LUNCH TORIBIO Administration Furosemide 40 mg 08/22/20 23:30 08/22/20 23:37 Furosemide 10 Mg/Ml 4 Ml Vial IV Not Given Q12H TORIBIO Guaifenesin/Dextromethorphan 2 each 08/23/20 06:56 Guaifenesin-Dm 600/30mg 1 Each Tab.Er.12h PO Q12HR PRN Cough Midodrine 10 mg 08/23/20 09:00 08/23/20 08:00 Midodrine 5 Mg Tab PO 10 mg TID TORIBIO Administration Naloxone HCl 0.2 mg 08/22/20 23:27 Naloxone 0.4 Mg/Ml 1 Ml Vial IV Q2M PRN Opioid Reversal Pantoprazole Sodium 40 mg 08/23/20 07:30 08/23/20 07:14 Pantoprazole 40 Mg Tablet PO 40 mg AC-BRKFST TORIBIO Administration Potassium Chloride 10 meq 08/23/20 09:00 08/23/20 08:00 Potassium Chloride Er 10 Meq Tab.Er.Prt PO 10 meq DAILY TORIBIO Administration Senna/Docusate Sodium 2 each 08/23/20 06:56 Sennosides-Docusate Sodium 1 Each Tab PO HS PRN Constipation Intake and Output 08/22/20 08/23/20 08/23/20 22:59 06:59 14:59 Intake Total 120 Balance 120 Intake: Oral 120 Other: # Voids 1 Weight 81.647 kg 87.5 kg 08/23/20 05:36 08/23/20 05:36 Assessment and Plan Assessment: #1 symptoms of worsening shortness of breath #2 evidence of CHF, likely diastolic as preoperative echocardiogram showed ejection fraction of 55% #3 CAD status post 2 vessel CABG #4 pulmonary fibrosis #5 hypertension, currently hypotensive #6 hyperlipidemia #7 previous tobacco dependence #8 hyponatremia #9 acute kidney injury Plan: From cardiology's perspective and obtain a 2-D echo with Doppler study to assess post op cardiac structure and function. Continue IV Lasix. Patient may benefit from pulmonary consult. We'll continue trying the blood pressure and reintroduce cardiac medications when appropriate. We will continue to follow with his private further recommendations accordingly. The above dictated assessment and findings were discussed with signing physician. The impression and plan of care have been directed as dictated. Janine Stein, Nurse Practitioner, acting as scribe for signing physician.
[2020-08-23] MEDS: FUROSEMIDE 10 MG/ML 4 ML VIAL IV SCH ×2 (11:15→20:18)
[2020-08-23] MEDS ORDERED: LOSARTAN 25 MG TAB PO SCH (12:00)
[2020-08-23] MEDS ORDERED: ALBUMIN HUMAN 25% 100 ML in EMPTY BAG 1 BAG IVPB SCH (12:15)
[2020-08-23] MEDS ORDERED: ALBUMIN HUMAN 25% 50 ML in EMPTY BAG 1 BAG IVPB SCH (12:15)
[2020-08-23] MEDS: ALBUMIN HUMAN 25% 50 ML in EMPTY BAG 1 BAG IVPB SCH ×4 (13:24→21:55)
[2020-08-23] MEDS: LIDOCAINE 5% PATCH TOPICAL SCH (13:25)
--- NOTE | 2020-08-23 14:11 | US ---
EXAMINATION TYPE: US chest DATE OF EXAM: 08/23/2020 COMPARISON: xray 08/23/2020 CLINICAL HISTORY: pleural effusion dyspnea hypoxia. TECHNIQUE: Targeted ultrasound of the posterior lower chest. EXAM MEASUREMENTS: Right Pleural Effusion pocket size: 7.9 cm Right skin surface to fluid distance: 2.8 cm Left Pleural Effusion pocket size: 4.9 cm Left skin surface to fluid distance: 3.1 cm Right side marked for possible thoracentesis outside the dept. Left side NOT marked for possible thoracentesis outside the dept due to lung within pocket. Pulmonologists are able to review the images in the patient?s EMR. IMPRESSIONS: Bilateral pleural effusions above.
--- NOTE | 2020-08-23 14:33 | P.HPIM ---
History of Present Illness H&P Date: 08/23/20 HISTORY OF PRESENT ILLNESS: This is a 75-year-old female patient who follows on an outpatient basis with Dr. Rich Avila for primary care service, Dr. Sloan for cardiology management and Dr. Guadalupe for pulmonary fibrosis management. She has a past medical history significant for hypertension, hyperlipidemia, pulmonary fibrosis, asthma, obesity, remote history of tobacco dependence with smoking 32 years ago, osteoarthritis, cervical stenosis post anterior cervical decompression, discectomy and fusion, TIA as a child at age 11 and family history of premature coronary artery disease with her father being diagnosed in his early 50s. Recently, the patient has been experiencing episodes of shortness of breath over the past 6 months with just minimal activity. She also complained of some lower extremity swelling which did resolve with some diuresis. she underwent a stress test which showed anterior wall ischemia with small reversible defect. a 2-D echocardiogram which showed mild aortic valve insufficiency, mild mitral valve regurgitation, mild tricuspid valve regurgitation and left ventricular function to be normal with an ejection fraction of 55%. Subsequently she underwent an elective heart catheterization on 07/27/2020 which demonstrated a left main stenosis with QING with a calculation of 2.6 mm, a 40% stenosis to her mid left anterior descending coronary artery and a 30% stenosis to her right coronary artery. Due to the patient's symptoms and findings on her heart catheterization of left main stenosis a consult was placed to Dr. Flores Sethi from cardiothoracic surgery for further evaluation and treatment recommendations. . During her preoperative workup her serum sodium level was found to be 120 and was admitted prior to surgery for treatment of hyponatremia. Last admission On 08/06/2020-08/19/20 the patient was admitted to the hospital for treatment of her hyponatremia, and once her hyponatremia was resolved on 08/10/2020, asubsequently taken to the operating room where Dr. Flores Sethi performed a double vessel coronary artery bypass grafting surgery using the left internal mammary artery to left anterior setting coronary artery, a reverse greater saphenous vein graft from the aorta to the first obtuse marginal coronar y artery, endoscopic harvesting of the left greater saphenous vein from the groin Upon completion of the surgery the patient was transferred to the cardiovascular intensive care unit where she was recovered, monitored hemodynamically and where she progressed cardiac rehabilitation phase Her oxygen was titrated down, she continued to work with physical/occupational therapy and cardiac rehabilitation, she was tolerating an oral diet, her pain was well controlled without narcotics and she was ready to be discharged home with [facility] care on postoperative day #9. Did not require home O2 on last admission however she required new medication changes including diuretics during that last admission. PRINCIPAL PROCEDURE: 08/10/2020 1. Double vessel coronary artery bypass grafting using the left internal mammary artery to left anterior descending coronary artery, a reverse greater s aphenous vein graft from the aorta to the first obtuse marginal coronary artery. 2. Endoscopic harvesting of the left greater saphenous vein from the groin to just below the knee level. 3. Exclusion of the left atrial appendage using a 35 mm Atriclip. 4. Intraoperative graft flow measurement using the [employer] system. 5. Intraoperative transesophageal echocardiogram. 6. Intraoperative epi-aortic scanning.There were no postoperative complications. Patient comes in in worsening shortness of breath anasarca, no chest pain, has BARKER, edma without leg pain new medications from last visit was compliant, requiring lipitor 75bid, tolvaptan. meotprolol 75 bid plavix, lasix 40 mg daily losartain 25 asa 325, ferrous sulfate and fluconazole. patient comes in now for CHF, anarsarc eyl pleural effusion, consult with dr Sethi. and cardiology, if okay will be cardiothoracic surgeon can also perform the thoracentesis, however with hypoxemia, also have requested Dr. Gamboa's services. Patient has a hemoglobin of 7.0 on and 3, platelet count of 305, hemoglobin right to admission was 8.0 denies any Hemoccult stools, creatinine was 1.60 from a previous of 0.9 blood pressure is in the low 90s systolic, pulse ox, 90 on 4 L nasal cannula, patient was not discharged with home O2 during her last admission Review of Systems Constitutional: Reports as per HPI, Denies anorexia, Denies chills, Denies chronic headaches, Denies chronic pain, Denies daytime sleepiness, Denies fatigue, Denies fever, Denies lethargy, Denies malaise, Denies night sweats, Denies poor appetite, Denies sweats, Denies weakness, Denies weight gain, Denies weight loss Ears, nose, mouth and throat: Reports as per HPI Cardiovascular: Reports as per HPI, Reports decreased exercise tolerance, Reports dyspnea on exertion, Reports edema, Reports orthopnea, Reports shortness of breath Respiratory: Reports cough, Reports dyspnea, Denies as per HPI, Denies congestion, Denies cough with sputum, Denies excessive sputum, Denies hemoptysis, Denies home oxygen, Denies pain, Denies pain on inspiration, Denies pleurisy, Denies respiratory infections, Denies sleep apnea, Denies snoring, Denies wheezing Gastrointestinal: Reports as per HPI Genitourinary: Reports as per HPI, Denies abnormal vaginal bleeding, Denies decreased libido, Denies difficulty conceiving, Denies difficulty voiding, Denies dysmenorrhea, Denies dyspareunia, Denies dysuria, Denies flank pain, Denies genital sores, Denies hematuria, Denies hot flashes, Denies incomplete emptying, Denies kidney stones, Denies menorrhagia, Denies mixed incontinence, Denies nocturia, Denies pelvic pain, Denies post void dribbling, Denies , Denies prolapse symptoms, Denies stress incontinence, Denies urge incontinence, Denies urgency, Denies urinary frequency, Denies vaginal dischar ge, Denies vaginal dryness, Denies vaginal itching, Denies vaginal odor Menstruation: Reports as per HPI Musculoskeletal: Denies as per HPI, Denies arm numbness/tingling, Denies atrophy, Denies fractures, Denies frequent falls, Denies gait dysfunction, Denies hot joints, Denies leg numbness/tingling, Denies limitation of motion, Denies loss of height, Denies low back pain, Denies morning stiffness, Denies muscle cramps, Denies muscle weakness, Denies myalgias, Denies neck pain, Denies neck stiffness, Denies prior amputations, Denies redness of joints, Denies shooting arm pain, Denies shooting leg pain Integumentary: Reports as per HPI Neurological: Reports as per HPI, Reports weakness Psychiatric: Reports as per HPI Endocrine: Reports as per HPI, Denies cold intolerance, Denies deepening of the voice, Denies excessive sweating, Denies excessive thirst, Denies fatigue, Denies flushing, Denies heat intolerance, Denies high blood sugars, Denies increase in ring/shoe/hat size, Denies low blood sugars, Denies nocturia, Denies palpitations, Denies polydipsia, Denies polyphagia, Denies polyuria, Denies proptosis, Denies recent glucocorticoid use, Denies thyroid mass, Denies weight change Hematologic/Lymphatic: Reports as per HPI Allergic/Immunologic: Reports as per HPI, Denies allergic rhinitis, Denies anaphylaxis, Denies angioedema, Denies gluten intolerance, Denies persistent infections, Denies seasonal allergies, Denies urticaria, Denies wheezing Past Medical History Past Medical History: Asthma, Coronary Artery Disease (CAD), Hyperlipidemia, Hypertension, Osteoarthritis (OA) Additional Past Medical History / Comment(s): skin cancer with removals, arthritis multiple joints, back and cervical pain, ?TIA in her teens-shows up on scan?, pulmonary fibrosis, hyponatremia History of Any Multi-Drug Resistant Organisms: None Reported Past Surgical History: Cholecystectomy, Coronary Bypass/CABG, Heart Catheterization, Tonsillectomy, Tubal Ligation Additional Past Surgical History / Comment(s): 08-10-20 CABG, 2 cardiac caths without intervention, bilateral cataract removal with lens implants, skin cancer removals, cyst removed from neck, colonoscopy, cervical fusion Past Anesthesia/Blood Transfusion Reactions: No Reported Reaction Additional Past Anesthesia/Blood Transfusion Reaction / Comment(s): Pt has never received blood. Past Psychological History: No Psychological Hx Reported Smoking Status: Former smoker Past Alcohol Use History: None Reported Past Drug Use History: None Reported - Past Family History Brother(s) Family Medical History: Coronary Artery Disease (CAD) Additional Family Medical History / Comment(s): "bad heart" aneurysm Sister(s) Family Medical History: Cancer Additional Family Medical History / Comment(s): breast cancer Mother Family Medical History: Cancer, Coronary Artery Disease (CAD) Additional Family Medical History / Comment(s): Lymphoma, had a pacemaker. Mother at the age of 92yrs. Father Family Medical History: Coronary Artery Disease (CAD), Myocardial Infarction ([place]) Additional Family Medical History / Comment(s): Father of a [place] at the age of 63 yrs, diagnosed with CAD in his early 50s. Medications and Allergies Home Medications Medication Instructions Recorded Confirmed Type Ipratropium-Albuterol Nebulize 3 ml INHALATION RT-QID PRN 05/18/15 08/22/20 History [Duoneb 0.5 mg-3 mg/3 ml Soln] Ibuprofen [Motrin] 800 mg PO TID PRN 12/05/17 08/22/20 History Albuterol Sulfate [Albuterol 2 puff PO RT-Q6H PRN 08/06/20 08/22/20 History Sulfate Hfa] Acetaminophen Tab [Tylenol] 650 mg PO Q4HR PRN tab 08/19/20 08/22/20 Rx Ascorbic Acid [Vitamin C] 500 mg PO DAILY@1200 #7 tab 08/19/20 08/22/20 Rx Aspirin 325 mg PO DAILY #30 tab 08/19/20 08/22/20 Rx Atorvastatin [Lipitor] 40 mg PO DAILY #30 tab 08/19/20 08/22/20 Rx Clopidogrel [Plavix] 75 mg PO DAILY #30 tab 08/19/20 08/22/20 Rx Ferrous Sulfate [Iron (65 MG 325 mg PO W/LUNCH #7 tab 08/19/20 08/22/20 Rx Elemental)] Furosemide [Lasix] 40 mg PO DAILY #7 tablet 08/19/20 08/22/20 Rx Losartan [Cozaar] 25 mg PO DAILY@1200 #30 tab 08/19/20 08/22/20 Rx Metoprolol Tartrate [Lopressor] 75 mg PO BID #180 tab 08/19/20 08/22/20 Rx Pantoprazole [Protonix] 40 mg PO AC-BRKFST #30 tablet.dr 08/19/20 08/22/20 Rx Potassium Chloride ER [K-Dur 10] 10 meq PO DAILY #7 tab 08/19/20 08/22/20 Rx Sennosides-Docusate Sodium 2 each PO HS PRN #14 tab 08/19/20 08/22/20 Rx [Senokot-S] guaiFENesin-DM 600/30MG [Mucinex 2 each PO Q12HR #14 tab.er.12h 08/19/20 08/22/20 Rx Dm] Allergies Allergy/AdvReac Type Severity Reaction Status Date / Time adhesive Allergy blisters Verified 08/22/20 22:40 latex Allergy Rash/Hives Verified 08/22/20 22:40 Physical Exam Vitals: Vital Signs Temp Pulse Pulse Resp BP BP Pulse Ox 08/23/20 09:50 97 22 103/44 97 08/23/20 07:56 97.9 F 96 22 81/44 91 L 08/23/20 04:00 98.6 F 73 18 97/51 94 L 08/23/20 01:28 80 20 08/23/20 01:04 90/58 08/23/20 00:53 97.5 F L 80 20 91/42 99 08/23/20 00:49 98 08/23/20 00:00 74 24 92/48 08/22/20 23:00 76 22 89/52 08/22/20 22:15 75 22 90/53 99 08/22/20 22:00 75 20 85/50 96 08/22/20 21:45 77 22 83/37 96 08/22/20 21:38 24 08/22/20 21:30 98.6 F 77 22 100/72 97 Intake and Output 08/22/20 08/23/20 08/23/20 22:59 06:59 14:59 Intake Total 120 Balance 120 Intake: Oral 120 Other: # Voids 1 Weight 81.647 kg 87.5 kg - Constitutional General appearance: cooperative, no acute distress, obese - EENT Eyes: EOMI, PERRLA, normal appearance ENT: NA/AT, normal oropharynx - Neck Neck: normal ROM - Respiratory Respiratory: bilateral: diminished, dullness, prolonged inspiration, negative: CTA, wheezing, prolonged expiration - Cardiovascular Rhythm: regular Abnormal Heart Sounds: no systolic murmur, no diastolic murmur, no rub, no S3 Gallop, no S4 Gallop, no click, no other leg Peripheral Edema: bilateral: 3+ - Gastrointestinal General gastrointestinal: normal bowel sounds, soft - Integumentary Integumentary: decreased turgor, normal - Neurologic Neurologic: CNII-XII intact - Musculoskeletal Musculoskeletal: generalized weakness, strength equal bilaterally - Psychiatric Psychiatric: A&O x's 3, appropriate affect, intact judgment & insight Results CBC & Chem 7: 08/23/20 05:36 08/23/20 05:36 Labs: Abnormal Lab Results - Last 24 Hours (Table) 08/22/20 08/22/20 08/22/20 Range/Units 21:44 21:44 21:44 RBC 2.32 L (3.80-5.40) m/uL Hgb 7.0 L (11.4-16.0) gm/dL Hct 21.2 L (34.0-46.0) % Neutrophils # 9.5 H (1.3-7.7) k/uL Lymphocytes # 0.5 L (1.0-4.8) k/uL Sodium 125 L (137-145) mmol/L Chloride 94 L (98-107) mmol/L Carbon Dioxide (22-30) mmol/L BUN 30 H (7-17) mg/dL Creatinine 1.60 H (0.52-1.04) mg/dL Calcium 7.7 L (8.4-10.2) mg/dL Total Bilirubin 1.4 H (0.2-1.3) mg/dL AST 57 H (14-36) U/L ALT 40 H (4-34) U/L Alkaline Phosphatase (38-126) U/L Troponin I 0.076 H* (0.000-0.034) ng/mL Total Protein 5.1 L (6.3-8.2) g/dL Albumin 2.6 L (3.5-5.0) g/dL 08/23/20 08/23/20 08/23/20 Range/Units 00:16 05:36 05:36 RBC 2.54 L (3.80-5.40) m/uL Hgb 7.5 L (11.4-16.0) gm/dL Hct 24.1 L (34.0-46.0) % Neutrophils # 8.0 H (1.3-7.7) k/uL Lymphocytes # 0.4 L (1.0-4.8) k/uL Sodium (137-145) mmol/L Chloride (98-107) mmol/L Carbon Dioxide (22-30) mmol/L BUN (7-17) mg/dL Creatinine (0.52-1.04) mg/dL Calcium (8.4-10.2) mg/dL Total Bilirubin (0.2-1.3) mg/dL AST (14-36) U/L ALT (4-34) U/L Alkaline Phosphatase (38-126) U/L Troponin I 0.077 H* 0.094 H* (0.000-0.034) ng/mL Total Protein (6.3-8.2) g/dL Albumin (3.5-5.0) g/dL 08/23/20 Range/Units 05:36 RBC (3.80-5.40) m/uL Hgb (11.4-16.0) gm/dL Hct (34.0-46.0) % Neutrophils # (1.3-7.7) k/uL Lymphocytes # (1.0-4.8) k/uL Sodium 128 L (137-145) mmol/L Chloride 96 L (98-107) mmol/L Carbon Dioxide 18 L (22-30) mmol/L BUN 33 H (7-17) mg/dL Creatinine 1.99 H (0.52-1.04) mg/dL Calcium 7.8 L (8.4-10.2) mg/dL Total Bilirubin 1.5 H (0.2-1.3) mg/dL AST 63 H (14-36) U/L ALT 44 H (4-34) U/L Alkaline Phosphatase 128 H (38-126) U/L Troponin I (0.000-0.034) ng/mL Total Protein 5.3 L (6.3-8.2) g/dL Albumin 2.6 L (3.5-5.0) g/dL Thrombosis Risk Factor Assmnt - DVT/VTE Prophylaxis DVT/VTE Prophylaxis: Pharmacologic Prophylaxis ordered - Choose All That Apply Any of the Below Risk Factors Present?: Yes Each Factor Represents 1 point: Heart failure (<1month), Obesity (BMI >25), Swollen legs (current) Other Risk Factors: Yes Each Risk Factor Represents 2 Points: Age 61-74 years Thrombosis Risk Factor Assessment Total Risk Factor Score: 5 Thrombosis Risk Factor Assessment Level: High Risk Assessment and Plan Plan: 1. CHF exacerbation, patient most likely has diastolic CHF last EF per cardiology notes, 55%, mild AI and mild MR and mild TR, also complicated by severe protein calorie malnutrition, last echocardiogram for review was in 2018 from our facility, thoracic ultrasound requested, obtain echocardiogram, cardiology consultation, patient has worsening hypoxemia thoracic ultrasound, O2 supplementation, IV diuresing 40 mg Lasix every 12 hours, patient might need thoracentesis, either services from cardiothoracic pulmonary do procedure as needed, Lasix 40 mg every 12 hours, 2Acute hypoxemic respiratory failure secondary to CHF, unknown type, need a new echocardiogram for evaluation, as the patient has new hypoxemia and dyspnea. Patient has underlying pulmonary hypertension as well, consult with coronary, see above. O2 supplementation, patient's currently chest pain-free, negative for covid 3. CAD, with prior CABG performed on 08/10/2020, two-vessel, involving HOLLAND to LAD, and reverse greater saphenous vein to obtuse marginal coronary artery. Continue aspirin 325 mg daily, Plavix 75 mg daily, Toprol all 75 mg twice a day, 4. Moderate protein calorie malnutrition, with anasarca and hypotension, albumin infusion, 4 doses 6 hours apart start me the drain most likely to be used short-term 5. Hypotension, however patient has volume exact, ranitidine 10 mg 3 times a day, check for EF patient is nutritionally depleted with protein 6 History of pulmonary fibrosis. Continue duo nebs and albuterol 4. Asthma, mild intermittent. Continue ipratropium albuterol nebulizers 7. Postop anemia, with significant iron deficiency, on iron supplementation, monitor for ongoing iron losses, and blood losses. 5. Hyperlipidemia. Continue statin daily 6. Hypertension. Continue Lopressor 75 mg twice a day 7. GI prophylaxis. Pantoprazole 8. DVT prophylaxis: SCDs 9. Blood sugar management in a nondiabetic. insulin scale ACHS. 10. Dry mouth patient needs an oral lubricant, status post fluconazole Prognosis guarded .
[2020-08-23] MEDS: DRY MOUTH SPRAY 44.3 SPRAY/44.3 ML SPRAY MUCOUS MEM SCH ×2 (15:06→17:08)
[2020-08-23] MEDS ORDERED: FUROSEMIDE 10 MG/ML 4 ML VIAL IV STA (17:08)
[2020-08-23] MEDS ORDERED: methylPREDNISolone SOD SUCCI 125 MG/2 ML VIAL IV STA (20:16)
[2020-08-23] MEDS: IPRATROPIUM-ALBUTEROL 3 ML NEB INHALATION PRN (20:43)
[2020-08-23] MEDS: METOPROLOL TARTRATE 25 MG TAB PO SCH (21:50)
[2020-08-23] MEDS ORDERED: ALPRAZolam 0.25 MG TAB PO PRN (22:53)
[2020-08-24] MEDS: DRY MOUTH SPRAY 44.3 SPRAY/44.3 ML SPRAY MUCOUS MEM SCH ×5 (00:41→20:55)
[2020-08-24] MEDS: ALBUMIN HUMAN 25% 50 ML in EMPTY BAG 1 BAG IVPB SCH ×4 (00:45→08:45)
[2020-08-24] MEDS: ACETAMINOPHEN TAB 325 MG TAB PO PRN (02:47)
[2020-08-24 03:20] LABS: Glucose,Whole Blood 60 mg/dL (75-99)
[2020-08-24 03:33] LABS: Glucose,Whole Blood 57 mg/dL (75-99)
[2020-08-24] MEDS ORDERED: DEXTROSE 50% SYRINGE 50 ML IVP STA ×2 (03:35→05:34)
[2020-08-24 04:04] LABS: Glucose,Whole Blood 114 mg/dL (75-99)
[2020-08-24 04:27] LABS: Allen Test Performed? Yes
[2020-08-24 04:36] LABS: HGB 7.1 gm/dL (11.4-16.0); Hypochromasia Marked; MCH 29.2 pg (25.0-35.0); MCHC 29.7 g/dL (31.0-37.0); MCV 98.3 fL (80.0-100.0); Macrocytosis Slight; Mean Platelet Volume 8.4; Platelet Count 426 k/uL (150-450); Poikilocytosis Slight; RBC 2.44 m/uL (3.80-5.40); RDW 15.6 % (11.5-15.5); WBC 11.3 k/uL (3.8-10.6)
[2020-08-24 04:49] LABS: Glucose,Whole Blood 120 mg/dL (75-99)
[2020-08-24 04:49] LABS: ABG Base Excess -14.7 mmol/L; ABG HCO3 15 mmol/L (21-25); ABG Oxygen Saturation 96.8 % (94-97); ABG PCO2 52 mmHg (35-45); ABG PO2 108 mmHg (83-108); ABG TCO2 17 mmol/L (19-24)
--- NOTE | 2020-08-24 04:49 | XR ---
EXAM: XR Chest, 1 View CLINICAL HISTORY: ITS.REASON XR Reason: sob TECHNIQUE: Frontal view of the chest. COMPARISON: Chest x-ray dated 08/22/2020 FINDINGS: Lungs: Diffuse airspace opacities which may represent infection versus pulmonary edema. Pleural space: Bilateral pleural effusions. Heart: Atrial appendage clip is noted. Heart is enlarged. Mediastinum: Unremarkable. Bones/joints: Evidence of prior median sternotomy. Cervical fusion hardware is noted. Degenerative changes of the spine. IMPRESSION: 1. Diffuse airspace opacities which may represent infection versus pulmonary edema. 2. Bilateral pleural effusions.
[2020-08-24 04:50] LABS: Albumin 3.7 g/dL (3.5-5.0); Calcium 7.5 mg/dL (8.4-10.2); Magnesium 2.3 mg/dL (1.6-2.3); Total Bilirubin 2.7 mg/dL (0.2-1.3); Total Protein 6.2 g/dL (6.3-8.2)
[2020-08-24 05:07] LABS: Anisocytosis (M) Present; Lymphocytes # (M) 0.57 k/uL (1.0-4.8); Neutrophils # (M) 9.83 k/uL (1.3-7.7); Neutrophils % (M) 87 %; Nucleated Red Blood Cells 0 /100 WBC (0-0); Polychromasia Present; Total Cells Counted 100; Toxic Vacuolation Present
[2020-08-24] MEDS ORDERED: VANCOMYCIN IV PER PHARMACY 1 EACH MISC MISCELLANE PRN (05:10)
[2020-08-24] MEDS ORDERED: SODIUM CHLORIDE 0.9% 1,000 ML IV ONE ×2 (05:10→06:10)
--- NOTE | 2020-08-24 05:11 | P.EN ---
A team note Activated at 3:55 AM. Patient seen at the bedside shortly after. Reviewed the chart in detail and discussed the case with the RN. The patient is status post two-vessel CABG on 08/10/20. The patient had subsequent wound dehiscence of the sternum and was admitted to the cardiothoracic surgery with suspected CHF exacerbation. A team was activated since the patient's mentation gradually worsened. She had become oriented only to self and not answering questions appropriately. The patient's vital signs at the bedside were 99/65, pulse 85, SpO2 96% on nonrebreather 15 L, with respiratory rate 32. General: Somewhat ill-appearing, in mild acute distress, appears stated age, obese HEENT: NC/AT, anicteric sclerae, moist conjunctiva, no lid-lag, PERRLA Cardiovascular: S1/S2 wnl, chest hugger in place, pleural rub appreciated, sternal wound purulent drainage noted Lungs: Bilateral rales Abdominal: Soft, non-tender, non-distended Skin: Warm, dry Extremities: No edema or contractures Psychiatric: Awake, oriented only to self, not answering questions appropriately Assessment/plan Shortness of breath, likely multifactorial in setting of CHF with recent CABG -Status post 40 mg of Lasix IVP -Repeat CXR reviewed -Case discussed with hot die press operator in detail who recommended antibiotic coverage with vancomycin and cefepime -Commercial Diver also recommended IV fluids and BiPAP -Cardiothoracic surgery team was notified
[2020-08-24] MEDS ORDERED: VANCOMYCIN 1,500 MG in SODIUM CHLORIDE 0.9% 250 ML IVPB STA (05:13)
[2020-08-24 05:14] LABS: Potassium 7.1 mmol/L (3.5-5.1)
[2020-08-24] MEDS ORDERED: CEFEPIME 2 GM in SODIUM CHLORIDE 0.9% 100 ML IVPB STA (05:14)
[2020-08-24] MEDS ORDERED: INSULIN REGULAR 100 UNIT/ML VIAL IV ONE (05:34)
[2020-08-24] MEDS ORDERED: SODIUM POLYSTYRENE SULFONATE 15 GM/60 ML BOTTLE PO STA (05:34)
[2020-08-24] MEDS ORDERED: CALCIUM GLUCONATE 1 GM in SODIUM CHLORIDE 0.9% 100 ML IVPB ONE (05:34)
[2020-08-24] MEDS ORDERED: SODIUM BICARB 8.4% 50 ML SYR (1 MEQ/ML) IV STA ×3 (05:34→07:55)
[2020-08-24] MEDS ORDERED: SODIUM BICARB 8.4% 50 ML SYR (1 MEQ/ML) ONE (06:14)
[2020-08-24 07:07] LABS: Appearance,Urine Turbid (Clear); Bacteria,Urine Few /hpf; Bilirubin,Urine 1+ (Negative); Blood,Urine Trace (Negative); Budding Yeast,Urine Occasional /hpf; Color,Urine Dark Yellow; Glucose,Urine (UA) Negative (Negative); Hyaline Casts,Urine 33 /lpf (0-2); Ketones,Urine Negative (Negative); Leukocyte Esterase,Urine Negative (Negative); Mucus,Urine Rare /hpf; Nitrite,Urine Negative (Negative); Protein,Urine 2+ (Negative); RBC,Urine 5 /hpf (0-5); Specific Gravity,Urine 1.024 (1.001-1.035); Squamous Epithelial Cell,Urine 3 /hpf (0-4); WBC,Urine 88 /hpf (0-5)
[2020-08-24 07:45] LABS: ABG Base Excess -9.6 mmol/L; ABG HCO3 19 mmol/L (21-25); ABG PCO2 50 mmHg (35-45); ABG PO2 304 mmHg (83-108); ABG TCO2 20 mmol/L (19-24); Allen Test Performed? Yes
[2020-08-24 07:51] LABS: ABG PH 7.19 (7.35-7.45)
[2020-08-24] MEDS: DEXTROSE 5% IN WATER 1,000 ML with SODIUM BICARB (1 MEQ/ML) 150 ML IV SCH ×3 (07:59→20:56)
[2020-08-24] MEDS: NOREPINEPHRINE 4 MG in SODIUM CHLORIDE 0.9% 250 ML IV SCH (07:59)
--- NOTE | 2020-08-24 08:28 | P.PN ---
Subjective Progress Note Date: 08/24/20 Principal diagnosis: Hypotension This is a 75-year-old female patient who underwent coronary artery bypass grafting times to 2 weeks ago with also history of pulmonary fibrosis as well as multiple comorbid conditions was admitted to the hospital initiated with increasing shortness of breath without any symptoms of chest pain or chest discomfort. Subsequently the patient was admitted to the 3 [facility] unit and subsequently she was transferred to the intensive. For increasing shortness of breath and also change in mental status. The patient was seen this morning in the intensive care unit. Unfortunately she continues to have change in mental status and she is obtunded. Hemodynamically she is and is stable and she is requiring small doses of norepinephrine. I did look at her ABG which showed severe acidosis and currently the patient is in process of getting BiPAP. A stat echocardiogram also in process to be done to rule out any pericardial effusion/tamponade. The chest x-ray showed pleural effusion and there is possibility that the patient might need to undergo pleurocentesis. She is in renal failure with a creatinine more than 3 and her baseline is around 1. Also there is a possibility that she might be septic from his sternal incision infection. Objective - Vital Signs Vital signs: Vital Signs Temp 96.5 F L 08/24/20 08:00 Pulse 75 08/24/20 08:00 Resp 31 H 08/24/20 08:00 BP 96/59 08/24/20 08:00 Pulse Ox 99 08/24/20 08:00 Intake & Output 08/23/20 08/24/20 08/24/20 18:59 06:59 18:59 Intake Total 170 1300 1400 Output Total 174 0 0 Balance -4 1300 1400 Weight 78.6 kg Intake: IV 50 1300 1400 Albumin Human 25% 50 ml 50 100 In Empty Bag 1 bag @ 50 mls/hr IVPB Q1H TORIBIO Rx#: [id number] Calcium Gluconate 1 gm In 100 Sodium Chloride 0.9% 100 ml @ 100 mls/hr IVPB ONCE ONE Rx#:[id number] Cefepime 2 gm In Sodium 100 Chloride 0.9% 100 ml @ 25 mls/hr IVPB ONCE STA Rx# :[id number] Dextrose 5% in Water 1, 150 000 ml @ 150 mls/hr IV . Q7H40M TORIBIO with Sodium Bicarb (1 Meq/ml) 150 ml Rx#:[id number] Sodium Chloride 0.9% 1, 1000 1000 000 ml @ 999 mls/hr IV . Q1H1M ONE Rx#:[id number] Vancomycin 1,500 mg In 250 Sodium Chloride 0.9% 250 ml @ 125 mls/hr IVPB ONCE STA Rx#:[id number] Oral 120 Output: Urine 100 0 0 Uretheral (Yu) 100 Post Void Residual 74 - Constitutional General appearance: Present: mild distress - Respiratory Respiratory: bilateral: diminished - Cardiovascular Rhythm: regular - Labs CBC & Chem 7: 08/24/20 04:16 08/24/20 04:16 Labs: Abnormal Lab Results - Last 24 Hours (Table) 08/24/20 08/24/20 08/24/20 Range/Units 03:19 03:31 03:52 WBC (3.8-10.6) k/uL RBC (3.80-5.40) m/uL Hgb (11.4-16.0) gm/dL Hct (34.0-46.0) % MCHC (31.0-37.0) g/dL RDW (11.5-15.5) % Neutrophils # (Manual) (1.3-7.7) k/uL Lymphocytes # (Manual) (1.0-4.8) k/uL D-Dimer (<0.60) mg/L FEU ABG pH (7.35-7.45) ABG pCO2 (35-45) mmHg ABG pO2 (83-108) mmHg ABG HCO3 (21-25) mmol/L ABG Total CO2 (19-24) mmol/L ABG O2 Saturation (94-97) % Sodium (137-145) mmol/L Potassium (3.5-5.1) mmol/L Chloride (98-107) mmol/L Carbon Dioxide (22-30) mmol/L BUN (7-17) mg/dL Creatinine (0.52-1.04) mg/dL POC Glucose (mg/dL) 60 L 57 L 114 H (75-99) mg/dL Plasma Lactic Acid Garrett (0.7-2.0) mmol/L Calcium (8.4-10.2) mg/dL Total Bilirubin (0.2-1.3) mg/dL AST (14-36) U/L ALT (4-34) U/L Alkaline Phosphatase (38-126) U/L C-Reactive Protein (<10.0) mg/L Total Protein (6.3-8.2) g/dL Urine Appearance (Clear) Urine Protein (Negative) Urine Blood (Negative) Urine Bilirubin (Negative) Urine WBC (0-5) /hpf Urine WBC Clumps (None) /hpf Urine Bacteria (None) /hpf Hyaline Casts (0-2) /lpf Urine Mucus (None) /hpf Urine Yeast (Budding) (None) /hpf 08/24/20 08/24/20 08/24/20 Range/Units 04:02 04:16 04:16 WBC 11.3 H (3.8-10.6) k/uL RBC 2.44 L (3.80-5.40) m/uL Hgb 7.1 L (11.4-16.0) gm/dL Hct 24.0 L (34.0-46.0) % MCHC 29.7 L (31.0-37.0) g/dL RDW 15.6 H (11.5-15.5) % Neutrophils # (Manual) 9.83 H (1.3-7.7) k/uL Lymphocytes # (Manual) 0.57 L (1.0-4.8) k/uL D-Dimer (<0.60) mg/L FEU ABG pH 7.08 L* (7.35-7.45) ABG pCO2 52 H (35-45) mmHg ABG pO2 (83-108) mmHg ABG HCO3 15 L (21-25) mmol/L ABG Total CO2 17 L (19-24) mmol/L ABG O2 Saturation (94-97) % Sodium 129 L (137-145) mmol/L Potassium 7.1 H* (3.5-5.1) mmol/L Chloride 96 L (98-107) mmol/L Carbon Dioxide 11 L (22-30) mmol/L BUN 43 H (7-17) mg/dL Creatinine 3.15 H (0.52-1.04) mg/dL POC Glucose (mg/dL) (75-99) mg/dL Plasma Lactic Acid Garrett (0.7-2.0) mmol/L Calcium 7.5 L (8.4-10.2) mg/dL Total Bilirubin 2.7 H (0.2-1.3) mg/dL AST 1882 H (14-36) U/L ALT 727 H (4-34) U/L Alkaline Phosphatase 134 H (38-126) U/L C-Reactive Protein (<10.0) mg/L Total Protein 6.2 L (6.3-8.2) g/dL Urine Appearance (Clear) Urine Protein (Negative) Urine Blood (Negative) Urine Bilirubin (Negative) Urine WBC (0-5) /hpf Urine WBC Clumps (None) /hpf Urine Bacteria (None) /hpf Hyaline Casts (0-2) /lpf Urine Mucus (None) /hpf Urine Yeast (Budding) (None) /hpf 08/24/20 08/24/20 08/24/20 Range/Units 04:16 04:28 04:47 WBC (3.8-10.6) k/uL RBC (3.80-5.40) m/uL Hgb (11.4-16.0) gm/dL Hct (34.0-46.0) % MCHC (31.0-37.0) g/dL RDW (11.5-15.5) % Neutrophils # (Manual) (1.3-7.7) k/uL Lymphocytes # (Manual) (1.0-4.8) k/uL D-Dimer 21.28 H (<0.60) mg/L FEU ABG pH (7.35-7.45) ABG pCO2 (35-45) mmHg ABG pO2 (83-108) mmHg ABG HCO3 (21-25) mmol/L ABG Total CO2 (19-24) mmol/L ABG O2 Saturation (94-97) % Sodium (137-145) mmol/L Potassium (3.5-5.1) mmol/L Chloride (98-107) mmol/L Carbon Dioxide (22-30) mmol/L BUN (7-17) mg/dL Creatinine (0.52-1.04) mg/dL POC Glucose (mg/dL) 120 H (75-99) mg/dL Plasma Lactic Acid Garrett 7.6 H* (0.7-2.0) mmol/L Calcium (8.4-10.2) mg/dL Total Bilirubin (0.2-1.3) mg/dL AST (14-36) U/L ALT (4-34) U/L Alkaline Phosphatase (38-126) U/L C-Reactive Protein (<10.0) mg/L Total Protein (6.3-8.2) g/dL Urine Appearance (Clear) Urine Protein (Negative) Urine Blood (Negative) Urine Bilirubin (Negative) Urine WBC (0-5) /hpf Urine WBC Clumps (None) /hpf Urine Bacteria (None) /hpf Hyaline Casts (0-2) /lpf Urine Mucus (None) /hpf Urine Yeast (Budding) (None) /hpf 08/24/20 08/24/20 08/24/20 Range/Units 05:00 05:40 07:43 WBC (3.8-10.6) k/uL RBC (3.80-5.40) m/uL Hgb (11.4-16.0) gm/dL Hct (34.0-46.0) % MCHC (31.0-37.0) g/dL RDW (11.5-15.5) % Neutrophils # (Manual) (1.3-7.7) k/uL Lymphocytes # (Manual) (1.0-4.8) k/uL D-Dimer (<0.60) mg/L FEU ABG pH 7.19 L* (7.35-7.45) ABG pCO2 50 H (35-45) mmHg ABG pO2 304 H (83-108) mmHg ABG HCO3 19 L (21-25) mmol/L ABG Total CO2 (19-24) mmol/L ABG O2 Saturation 100.0 H (94-97) % Sodium (137-145) mmol/L Potassium (3.5-5.1) mmol/L Chloride (98-107) mmol/L Carbon Dioxide (22-30) mmol/L BUN (7-17) mg/dL Creatinine (0.52-1.04) mg/dL POC Glucose (mg/dL) (75-99) mg/dL Plasma Lactic Acid Garrett (0.7-2.0) mmol/L Calcium (8.4-10.2) mg/dL Total Bilirubin (0.2-1.3) mg/dL AST (14-36) U/L ALT (4-34) U/L Alkaline Phosphatase (38-126) U/L C-Reactive Protein 360.3 H (<10.0) mg/L Total Protein (6.3-8.2) g/dL Urine Appearance Turbid H (Clear) Urine Protein 2+ H (Negative) Urine Blood Trace H (Negative) Urine Bilirubin 1+ H (Negative) Urine WBC 88 H (0-5) /hpf Urine WBC Clumps Many H (None) /hpf Urine Bacteria Few H (None) /hpf Hyaline Casts 33 H (0-2) /lpf Urine Mucus Rare H (None) /hpf Urine Yeast (Budding) Occasional H (None) /hpf Assessment and Plan Assessment: Assessment #1 change in mental status #2 acute respiratory distress #3 hypotension require vasopressors #4 possible sepsis #5 pulmonary fibrosis #6 acute on chronic renal failure Plan #1 continue supporting the blood pressure with a suppresses #2 awaiting for the patient to be seen by the intensive care team for possible pleurocentesis #3 blood culture and wound culture was sent already #4 stat echocardiogram to be done #5 follow-up with the patient
[2020-08-24] MEDS ORDERED: FUROSEMIDE 10 MG/ML 10 ML VIAL IV STA (08:54)
[2020-08-24] MEDS: METOPROLOL TARTRATE 25 MG TAB PO SCH ×2 (08:59→20:23)
[2020-08-24 09:05] LABS: Glucose,Whole Blood 183 mg/dL (75-99)
--- NOTE | 2020-08-24 09:42 | P.PN ---
Subjective Progress Note Date: 08/24/20 Principal diagnosis: Shortness of breath, likely acute diastolic heart failure, bilateral pleural effusion, lactic acidosis, hypercapnic respiratory failure requiring BiPAP, acute kidney injury, acute hyperkalemia, hyponatremia, acute transaminitis, hypotension requiring vasopressors use. Previous medical history of coronary artery disease with left main stenosis status post 2 vessel CABG on 08/10/2020 with expected postoperative acute blood loss anemia, hypotension, and urinary retention as well as candidal stomatititus, hyponatremia, pulmonary fibrosis, asthma, hypertension, hyperlipidemia, previous tobacco dependence, obesity, osteoarthritis, cervical stenosis post anterior cervical disc decompression, discectomy and fusion, TIA as a child, family history of premature coronary artery disease The patient was seen and examined at the bedside. This morning the patient had increased work of breathing, was becoming less responsive, an A team was called, ABGs were drawn with results 7.08/52/108/15/96%/-14.7. Chest x-rays completed demonstrating bilateral pleural effusions. Lactic acid was drawn at 7.6. A.m. labs were drawn with white count 11.3, hemoglobin 7.1, sodium 129, potassium 7.1, BUN 43, creatinine 3.15, AST 1882, ALT 727, CRP 360. Patient was anderson sferred to intensive care unit and placed on 100% BiPAP, given IV dextrose, regular insulin, calcium chloride, sodium bicarb, and 2 L IV fluid. Repeat blood gases were drawn, 7.19/50/304/19/-9.6. Placed on IV bicarb drip. Potassium repeat 5.7, lactic acid repeat 5.2. Sternal wound was producing thick yellowish brown fluid, was opened approximately 2 cm and deep culture was taken, packed and covered with 4 x 4 dressing. Patient with minimal urine output but urine was sent for culture. Blood cultures drawn, patient placed on IV vancomycin and cefepime and infectious disease was consulted. Nephrology was consulted. Patient becoming more responsive. Family updated by phone. Objective - Vital Signs Vital signs: Vital Signs Temp 96.5 F L 08/24/20 08:00 Pulse 75 08/24/20 08:00 Resp 31 H 08/24/20 08:00 BP 96/59 08/24/20 08:00 Pulse Ox 99 08/24/20 08:00 Intake & Output 08/23/20 08/24/20 08/24/20 18:59 06:59 18:59 Intake Total 170 1300 1411.479 Output Total 174 0 0 Balance -4 1300 1411.479 Weight 78.6 kg Intake: IV 50 1300 1400 Albumin Human 25% 50 ml 50 100 In Empty Bag 1 bag @ 50 mls/hr IVPB Q1H TORIBIO Rx#: [id number] Calcium Gluconate 1 gm In 100 Sodium Chloride 0.9% 100 ml @ 100 mls/hr IVPB ONCE ONE Rx#:[id number] Cefepime 2 gm In Sodium 100 Chloride 0.9% 100 ml @ 25 mls/hr IVPB ONCE STA Rx# :[id number] Dextrose 5% in Water 1, 150 000 ml @ 150 mls/hr IV . Q7H40M TORIBIO with Sodium Bicarb (1 Meq/ml) 150 ml Rx#:[id number] Sodium Chloride 0.9% 1, 1000 1000 000 ml @ 999 mls/hr IV . Q1H1M ONE Rx#:[id number] Vancomycin 1,500 mg In 250 Sodium Chloride 0.9% 250 ml @ 125 mls/hr IVPB ONCE STA Rx#:[id number] Intake, IV Titration 11.479 Amount Norepinephrine 4 mg In 11.479 Sodium Chloride 0.9% 250 ml @ 0.05 MCG/KG/MIN 14. 973 mls/hr IV .[id number] TORIBIO Rx#:[id number] Oral 120 Output: Urine 100 0 0 Uretheral (Yu) 100 Post Void Residual 74 - Constitutional Constitutional Comment(s): Currently laying in the intensive care unit on BiPAP, becoming more responsive - Respiratory Details: Lungs sounds diminished in the bases bilaterally with faint expiratory wheezes heard anteriorly. Respirations slightly tachypneic. Currently on BiPAP, 100% FiO2, IPAP 12, APAP 6 with oxygen saturations in the high 90s. No clubbing or cyanosis present. - Cardiovascular Details: S1, S2 present. Regular rate and rhythm, sinus rhythm with heart rate in the 70s. Sternum stable. Palpable peripheral pulses bilaterally. Trace generalized edema present. No calf pain or tenderness noted. Heart hugger in place. Antiembolism stockings, SCDs present. Right femoral triple-lumen central line and left radial arterial line placed by Dr. Hunter. - Gastrointestinal Gastrointestinal Comment(s): Abdomen soft, nontender, nondistended. Hypoactive bowel sounds present 4 quadrants. - Genitourinary Genitourinary Comment(s): Yu placed draining very minimal cloudy yellow urine - Integumentary Integumentary Comment(s): Anterior chest incision opened in the midportion approximated 2 cm, cultured, packed with gauze and covered with 4 x 4's, rest of incision well approximated. Left lower extremity EVH site well approximated without redness or drainage, bruising present. - Neurologic Neurologic Comment(s): Opens eyes, follows commands - Musculoskeletal Musculoskeletal: Present: strength equal bilaterally - Psychiatric Psychiatric Comment(s): Follows commands, does appear anxious - Allied health notes Allied health notes reviewed: nursing - Labs CBC & Chem 7: 08/24/20 04:16 08/24/20 08:10 Labs: Abnormal Lab Results - Last 24 Hours (Table) 08/24/20 08/24/20 08/24/20 Range/Units 03:19 03:31 03:52 WBC (3.8-10.6) k/uL RBC (3.80-5.40) m/uL Hgb (11.4-16.0) gm/dL Hct (34.0-46.0) % MCHC (31.0-37.0) g/dL RDW (11.5-15.5) % Neutrophils # (Manual) (1.3-7.7) k/uL Lymphocytes # (Manual) (1.0-4.8) k/uL D-Dimer (<0.60) mg/L FEU ABG pH (7.35-7.45) ABG pCO2 (35-45) mmHg ABG pO2 (83-108) mmHg ABG HCO3 (21-25) mmol/L ABG Total CO2 (19-24) mmol/L ABG O2 Saturation (94-97) % Sodium (137-145) mmol/L Potassium (3.5-5.1) mmol/L Chloride (98-107) mmol/L Carbon Dioxide (22-30) mmol/L BUN (7-17) mg/dL Creatinine (0.52-1.04) mg/dL POC Glucose (mg/dL) 60 L 57 L 114 H (75-99) mg/dL Plasma Lactic Acid Garrett (0.7-2.0) mmol/L Calcium (8.4-10.2) mg/dL Total Bilirubin (0.2-1.3) mg/dL AST (14-36) U/L ALT (4-34) U/L Alkaline Phosphatase (38-126) U/L C-Reactive Protein (<10.0) mg/L Total Protein (6.3-8.2) g/dL Urine Appearance (Clear) Urine Protein (Negative) Urine Blood (Negative) Urine Bilirubin (Negative) Urine WBC (0-5) /hpf Urine WBC Clumps (None) /hpf Urine Bacteria (None) /hpf Hyaline Casts (0-2) /lpf Urine Mucus (None) /hpf Urine Yeast (Budding) (None) /hpf 08/24/20 08/24/20 08/24/20 Range/Units 04:02 04:16 04:16 WBC 11.3 H (3.8-10.6) k/uL RBC 2.44 L (3.80-5.40) m/uL Hgb 7.1 L (11.4-16.0) gm/dL Hct 24.0 L (34.0-46.0) % MCHC 29.7 L (31.0-37.0) g/dL RDW 15.6 H (11.5-15.5) % Neutrophils # (Manual) 9.83 H (1.3-7.7) k/uL Lymphocytes # (Manual) 0.57 L (1.0-4.8) k/uL D-Dimer (<0.60) mg/L FEU ABG pH 7.08 L* (7.35-7.45) ABG pCO2 52 H (35-45) mmHg ABG pO2 (83-108) mmHg ABG HCO3 15 L (21-25) mmol/L ABG Total CO2 17 L (19-24) mmol/L ABG O2 Saturation (94-97) % Sodium 129 L (137-145) mmol/L Potassium 7.1 H* (3.5-5.1) mmol/L Chloride 96 L (98-107) mmol/L Carbon Dioxide 11 L (22-30) mmol/L BUN 43 H (7-17) mg/dL Creatinine 3.15 H (0.52-1.04) mg/dL POC Glucose (mg/dL) (75-99) mg/dL Plasma Lactic Acid Garrett (0.7-2.0) mmol/L Calcium 7.5 L (8.4-10.2) mg/dL Total Bilirubin 2.7 H (0.2-1.3) mg/dL AST 1882 H (14-36) U/L ALT 727 H (4-34) U/L Alkaline Phosphatase 134 H (38-126) U/L C-Reactive Protein (<10.0) mg/L Total Protein 6.2 L (6.3-8.2) g/dL Urine Appearance (Clear) Urine Protein (Negative) Urine Blood (Negative) Urine Bilirubin (Negative) Urine WBC (0-5) /hpf Urine WBC Clumps (None) /hpf Urine Bacteria (None) /hpf Hyaline Casts (0-2) /lpf Urine Mucus (None) /hpf Urine Yeast (Budding) (None) /hpf 08/24/20 08/24/20 08/24/20 Range/Units 04:16 04:28 04:47 WBC (3.8-10.6) k/uL RBC (3.80-5.40) m/uL Hgb (11.4-16.0) gm/dL Hct (34.0-46.0) % MCHC (31.0-37.0) g/dL RDW (11.5-15.5) % Neutrophils # (Manual) (1.3-7.7) k/uL Lymphocytes # (Manual) (1.0-4.8) k/uL D-Dimer 21.28 H (<0.60) mg/L FEU ABG pH (7.35-7.45) ABG pCO2 (35-45) mmHg ABG pO2 (83-108) mmHg ABG HCO3 (21-25) mmol/L ABG Total CO2 (19-24) mmol/L ABG O2 Saturation (94-97) % Sodium (137-145) mmol/L Potassium (3.5-5.1) mmol/L Chloride (98-107) mmol/L Carbon Dioxide (22-30) mmol/L BUN (7-17) mg/dL Creatinine (0.52-1.04) mg/dL POC Glucose (mg/dL) 120 H (75-99) mg/dL Plasma Lactic Acid Garrett 7.6 H* (0.7-2.0) mmol/L Calcium (8.4-10.2) mg/dL Total Bilirubin (0.2-1.3) mg/dL AST (14-36) U/L ALT (4-34) U/L Alkaline Phosphatase (38-126) U/L C-Reactive Protein (<10.0) mg/L Total Protein (6.3-8.2) g/dL Urine Appearance (Clear) Urine Protein (Negative) Urine Blood (Negative) Urine Bilirubin (Negative) Urine WBC (0-5) /hpf Urine WBC Clumps (None) /hpf Urine Bacteria (None) /hpf Hyaline Casts (0-2) /lpf Urine Mucus (None) /hpf Urine Yeast (Budding) (None) /hpf 08/24/20 08/24/20 08/24/20 Range/Units 05:00 05:40 07:43 WBC (3.8-10.6) k/uL RBC (3.80-5.40) m/uL Hgb (11.4-16.0) gm/dL Hct (34.0-46.0) % MCHC (31.0-37.0) g/dL RDW (11.5-15.5) % Neutrophils # (Manual) (1.3-7.7) k/uL Lymphocytes # (Manual) (1.0-4.8) k/uL D-Dimer (<0.60) mg/L FEU ABG pH 7.19 L* (7.35-7.45) ABG pCO2 50 H (35-45) mmHg ABG pO2 304 H (83-108) mmHg ABG HCO3 19 L (21-25) mmol/L ABG Total CO2 (19-24) mmol/L ABG O2 Saturation 100.0 H (94-97) % Sodium (137-145) mmol/L Potassium (3.5-5.1) mmol/L Chloride (98-107) mmol/L Carbon Dioxide (22-30) mmol/L BUN (7-17) mg/dL Creatinine (0.52-1.04) mg/dL POC Glucose (mg/dL) (75-99) mg/dL Plasma Lactic Acid Garrett (0.7-2.0) mmol/L Calcium (8.4-10.2) mg/dL Total Bilirubin (0.2-1.3) mg/dL AST (14-36) U/L ALT (4-34) U/L Alkaline Phosphatase (38-126) U/L C-Reactive Protein 360.3 H (<10.0) mg/L Total Protein (6.3-8.2) g/dL Urine Appearance Turbid H (Clear) Urine Protein 2+ H (Negative) Urine Blood Trace H (Negative) Urine Bilirubin 1+ H (Negative) Urine WBC 88 H (0-5) /hpf Urine WBC Clumps Many H (None) /hpf Urine Bacteria Few H (None) /hpf Hyaline Casts 33 H (0-2) /lpf Urine Mucus Rare H (None) /hpf Urine Yeast (Budding) Occasional H (None) /hpf 08/24/20 08/24/20 08/24/20 Range/Units 08:10 08:10 09:04 WBC (3.8-10.6) k/uL RBC (3.80-5.40) m/uL Hgb (11.4-16.0) gm/dL Hct (34.0-46.0) % MCHC (31.0-37.0) g/dL RDW (11.5-15.5) % Neutrophils # (Manual) (1.3-7.7) k/uL Lymphocytes # (Manual) (1.0-4.8) k/uL D-Dimer (<0.60) mg/L FEU ABG pH (7.35-7.45) ABG pCO2 (35-45) mmHg ABG pO2 (83-108) mmHg ABG HCO3 (21-25) mmol/L ABG Total CO2 (19-24) mmol/L ABG O2 Saturation (94-97) % Sodium (137-145) mmol/L Potassium 5.7 H (3.5-5.1) mmol/L Chloride (98-107) mmol/L Carbon Dioxide (22-30) mmol/L BUN (7-17) mg/dL Creatinine (0.52-1.04) mg/dL POC Glucose (mg/dL) 183 H (75-99) mg/dL Plasma Lactic Acid Garrett 5.2 H* (0.7-2.0) mmol/L Calcium (8.4-10.2) mg/dL Total Bilirubin (0.2-1.3) mg/dL AST (14-36) U/L ALT (4-34) U/L Alkaline Phosphatase (38-126) U/L C-Reactive Protein (<10.0) mg/L Total Protein (6.3-8.2) g/dL Urine Appearance (Clear) Urine Protein (Negative) Urine Blood (Negative) Urine Bilirubin (Negative) Urine WBC (0-5) /hpf Urine WBC Clumps (None) /hpf Urine Bacteria (None) /hpf Hyaline Casts (0-2) /lpf Urine Mucus (None) /hpf Urine Yeast (Budding) (None) /hpf - Imaging and Cardiology Chest x-ray: report reviewed, image reviewed Assessment and Plan Assessment: 1. Shortness of breath, likely acute diastolic heart failure, EF last admission 55%, bilateral pleural effusions 2. Lactic acidosis, sepsis 3. Hypercapnic respiratory failure requiring BiPAP 4. Acute kidney injury 5. Acute hyperkalemia 6. Acute transaminitis 7. Hypotension requiring vasopressors 8. Coronary artery disease with left main stenosis status post 2 vessel CABG on 08/10/2020 with expected postoperative acute blood loss anemia, hypotension, and urinary retention as well as candidal stomatititus 9. Hyponatremia 10. Pulmonary fibrosis, asthma 11. History of hypertension 12. Hyperlipidemia, treated 13. Previous tobacco dependence 14. Obesity 15. Osteoarthritis 16. Cervical stenosis post anterior cervical disc decompression, discectomy and fusion 17. TIA as a child 18. Family history of premature coronary artery disease Plan: 1. BiPAP management per pulmonary medicine 2. Nephrology consulted, appreciate recommendations, avoid nephrotoxins 3. Infectious disease consulted, appreciate recommendations, blood cultures/urine culture/sternal wound culture sent, continue antibiotics 4. Continue aspirin, statin, Plavix. Restart beta sisi when able 5. Wean levo as tolerated 6. Stat echo ordered 7. Will monitor daily labs and x-rays 8. Continue sternal precautions 9. GI/DVT prophylaxis 10. Family updated by phone 11. Case discussed with Dr. Olivera 12. More recommendations to follow Time with Patient: Greater than 30
--- NOTE | 2020-08-24 09:58 | P.NPCON ---
History of Present Illness - Reason for Consult acute renal failure - History of Present Illness Reason for consultation: Acute kidney injury and hyperkalemia History of present illness: Patient is a 75-year-old female seen in renal consultation for acute kidney injury and hyperkalemia. Patient underwent CABG on August 10. She was subsequently discharged but returned to the hospital with shortness of breath. She did receive 2 L of normal saline bolus on admission and is currently maintained on bicarb drip. Potassium level was 7.1 on admission which was medically treated and is now down to 5.7. Patient is not making any urine. She did require Levophed temporarily but now off. Creatinine as of 08/19/2020 was 0.9 and is up to 3.15 today. Chest x-ray suggestive of fluid overload. She is noted to have bilateral pleural effusions. She is noted to have wound dehiscence of the sternum and is maintained on antibiotic. Last night her mentation had worsened. She was more hypoxic and also hypotensive and subsequently transferred to the intensive care unit. She is currently on BiPAP. Not on any vasopressors. Patient is not able to provide much history. She was on losartan outpatient. Additionally Motrin is also listed in her home medications but unclear as to how much she was taking. She was also on potassium supplementation as well as Lasix outpatient. Vital signs are stable. General: The patient appeared well nourished and normally developed. HEENT: On BiPAP. LUNGS: Breath sounds decreased. Breath sounds decreased. HEART: Rate and Rhythm are regular. ABDOMEN: Soft, nontender. EXTREMITITES: No edema. Past Medical History Past Medical History: Asthma, Coronary Artery Disease (CAD), Hyperlipidemia, Hypertension, Osteoarthritis (OA) Additional Past Medical History / Comment(s): skin cancer with removals, arthritis multiple joints, back and cervical pain, ?TIA in her teens-shows up on scan?, pulmonary fibrosis, hyponatremia History of Any Multi-Drug Resistant Organisms: None Reported Past Surgical History: Cholecystectomy, Coronary Bypass/CABG, Heart Catheterization, Tonsillectomy, Tubal Ligation Additional Past Surgical History / Comment(s): 08-10-20 CABG, 2 cardiac caths without intervention, bilateral cataract removal with lens implants, skin cancer removals, cyst removed from neck, colonoscopy, cervical fusion Past Anesthesia/Blood Transfusion Reactions: No Reported Reaction Additional Past Anesthesia/Blood Transfusion Reaction / Comment(s): Pt has never received blood. Past Psychological History: No Psychological Hx Reported Smoking Status: Former smoker Past Alcohol Use History: None Reported Past Drug Use History: None Reported - Past Family History Brother(s) Family Medical History: Coronary Artery Disease (CAD) Additional Family Medical History / Comment(s): "bad heart" aneurysm Sister(s) Family Medical History: Cancer Additional Family Medical History / Comment(s): breast cancer Mother Family Medical History: Cancer, Coronary Artery Disease (CAD) Additional Family Medical History / Comment(s): Lymphoma, had a pacemaker. Mother at the age of 92yrs. Father Family Medical History: Coronary Artery Disease (CAD), Myocardial Infarction (ND) Additional Family Medical History / Comment(s): Father of a ND at the age of 63 yrs, diagnosed with CAD in his early 50s. Medications and Allergies Home Medications Medication Instructions Recorded Confirmed Type Ipratropium-Albuterol Nebulize 3 ml INHALATION RT-QID PRN 05/18/15 08/22/20 History [Duoneb 0.5 mg-3 mg/3 ml Soln] Ibuprofen [Motrin] 800 mg PO TID PRN 12/05/17 08/22/20 History Albuterol Sulfate [Albuterol 2 puff PO RT-Q6H PRN 08/06/20 08/22/20 History Sulfate Hfa] Acetaminophen Tab [Tylenol] 650 mg PO Q4HR PRN tab 08/19/20 08/22/20 Rx Ascorbic Acid [Vitamin C] 500 mg PO DAILY@1200 #7 tab 08/19/20 08/22/20 Rx Aspirin 325 mg PO DAILY #30 tab 08/19/20 08/22/20 Rx Atorvastatin [Lipitor] 40 mg PO DAILY #30 tab 08/19/20 08/22/20 Rx Clopidogrel [Plavix] 75 mg PO DAILY #30 tab 08/19/20 08/22/20 Rx Ferrous Sulfate [Iron (65 MG 325 mg PO W/LUNCH #7 tab 08/19/20 08/22/20 Rx Elemental)] Furosemide [Lasix] 40 mg PO DAILY #7 tablet 08/19/20 08/22/20 Rx Losartan [Cozaar] 25 mg PO DAILY@1200 #30 tab 08/19/20 08/22/20 Rx Metoprolol Tartrate [Lopressor] 75 mg PO BID #180 tab 08/19/20 08/22/20 Rx Pantoprazole [Protonix] 40 mg PO AC-BRKFST #30 tablet. 08/19/20 08/22/20 Rx Potassium Chloride ER [K-Dur 10] 10 meq PO DAILY #7 tab 08/19/20 08/22/20 Rx Sennosides-Docusate Sodium 2 each PO HS PRN #14 tab 08/19/20 08/22/20 Rx [Senokot-S] guaiFENesin-DM 600/30MG [Mucinex 2 each PO Q12HR #14 tab.er.12h 08/19/20 08/22/20 Rx Dm] Allergies Allergy/AdvReac Type Severity Reaction Status Date / Time adhesive Allergy blisters Verified 08/22/20 22:40 latex Allergy Rash/Hives Verified 08/22/20 22:40 Physical Exam Vitals: Vital Signs Temp Pulse Pulse Resp BP BP BP 08/24/20 09:30 77 23 08/24/20 09:15 76 27 H 08/24/20 09:00 78 36 H 08/24/20 08:45 78 38 H 112/60 08/24/20 08:30 76 37 H 109/59 08/24/20 08:15 96.5 F L 75 25 H 107/90 08/24/20 08:00 96.5 F L 75 31 H 96/59 08/24/20 07:45 73 29 H 93/46 08/24/20 07:30 72 30 H 81/43 08/24/20 07:15 70 28 H 74/35 08/24/20 07:00 70 30 H 73/24 08/24/20 06:45 71 31 H 75/26 08/24/20 06:30 72 31 H 98/50 08/24/20 06:15 70 31 H 08/24/20 06:00 71 32 H 83/39 08/24/20 05:45 77 28 H 91/22 08/24/20 05:30 78 35 H 08/24/20 05:15 81 36 H 88/49 08/24/20 05:00 96.9 F L 85 38 H 201/117 08/24/20 04:22 85 32 H 99/65 08/24/20 02:00 36 H 08/24/20 00:00 98.0 F 92 24 96/54 08/23/20 20:55 102 H 08/23/20 20:45 100 08/23/20 20:00 97.9 F 100 32 H 132/60 08/23/20 17:43 94 22 97/49 08/23/20 16:29 119/69 08/23/20 15:04 97.6 F 98 20 130/58 08/23/20 12:09 104/48 08/23/20 11:10 92/48 08/23/20 11:01 98.7 F 94 20 80/42 08/23/20 09:50 97 22 103/44 Pulse Ox 08/24/20 09:30 96 08/24/20 09:15 96 08/24/20 09:00 99 08/24/20 08:45 96 08/24/20 08:30 99 08/24/20 08:15 100 08/24/20 08:00 99 08/24/20 07:45 95 08/24/20 07:30 96 08/24/20 07:15 99 08/24/20 07:00 98 08/24/20 06:45 98 08/24/20 06:30 98 08/24/20 06:15 98 08/24/20 06:00 98 08/24/20 05:45 98 08/24/20 05:30 97 08/24/20 05:15 97 08/24/20 05:00 95 08/24/20 04:22 96 08/24/20 02:00 08/24/20 00:00 96 08/23/20 20:55 08/23/20 20:45 08/23/20 20:00 08/23/20 17:43 08/23/20 16:29 08/23/20 15:04 96 08/23/20 12:09 08/23/20 11:10 08/23/20 11:01 90 L 08/23/20 09:50 97 Intake and Output 08/23/20 08/24/20 08/24/20 22:59 06:59 14:59 Intake Total 100 1200 1631.479 Output Total 100 0 0 Balance 0 1200 1631.479 Intake: IV 100 1200 1620 Albumin Human 25% 50 ml 100 In Empty Bag 1 bag @ 50 mls/hr IVPB Q1H TORIBIO Rx#: [id number] Calcium Gluconate 1 gm In 100 Sodium Chloride 0.9% 100 ml @ 100 mls/hr IVPB ONCE ONE Rx#:[id number] Cefepime 2 gm In Sodium 100 Chloride 0.9% 100 ml @ 25 mls/hr IVPB ONCE STA Rx# :[id number] Dextrose 5% in Water 1, 370 000 ml @ 70 mls/hr IV . [id number] TORIBIO with Sodium Bicarb (1 Meq/ml) 150 ml Rx#:[id number] Sodium Chloride 0.9% 1, 1000 1000 000 ml @ 999 mls/hr IV . Q1H1M ONE Rx#:[id number] Vancomycin 1,500 mg In 250 Sodium Chloride 0.9% 250 ml @ 125 mls/hr IVPB ONCE STA Rx#:[id number] Intake, IV Titration 11.479 Amount Norepinephrine 4 mg In 11.479 Sodium Chloride 0.9% 250 ml @ 0.05 MCG/KG/MIN 14. 973 mls/hr IV .[id number] TORIBIO Rx#:[id number] Output: Urine 100 0 0 Uretheral (Yu) 100 Other: Weight 78.6 kg ABP, PAP, CO, CI - Last 8 Hours Arterial Blood Pressure 112/49 Arterial Blood Pressure 123/53 Arterial Blood Pressure 123/51 Arterial Blood Pressure 110/53 Results - Lab Results Most recent lab results ABG pH 7.19 (7.35-7.45) L* 08/24/20 07:43 ABG pCO2 50 mmHg (35-45) H 08/24/20 07:43 ABG pO2 304 mmHg (83-108) H 08/24/20 07:43 ABG HCO3 19 mmol/L (21-25) L 08/24/20 07:43 ABG O2 Saturation 100.0 % (94-97) H 08/24/20 07:43 Calcium 7.5 mg/dL (8.4-10.2) L 08/24/20 04:16 Magnesium 2.3 mg/dL (1.6-2.3) 08/24/20 04:16 08/24/20 04:16 08/24/20 08:10 Assessment and Plan Plan: Assessment: 1. Acute kidney injury secondary to ATN secondary to hypotension and cardiorenal syndrome. Baseline creatinine near 1 from earlier this month and is up to 3.15 today. Oliguric. 2. Hyperkalemia secondary to potassium supplementation, losartan, acute kidney injury as well as severe acidosis. Better with medical management. 3. Metabolic acidosis secondary to acute kidney injury. 4. Hypervolemic hyponatremia. 5. Wound dehiscence of the sternum. On antibiotics. CTS is following. 6. Acute hypoxia respiratory failure. 7. Status post CABG in 08/10/2020. Plan: Lasix 80 mg IV once now. Maintain bicarb drip but decrease the rate to 50 mL an hour. Due to oliguria, hyperkalemia, severe acidosis and volume overload, I will initiate renal replacement therapy. Consult vascular surgery for dialysis catheter placement. Plan for first treatment of hemodialysis today and second treatment tomorrow. Continue to monitor renal function and urine output. Wean FiO2. Repeat potassium level at 11 AM. Follow-up echocardiogram. Thank you for the consultation. I will continue to follow patient with you during her hospital stay.
[2020-08-24] MEDS: POTASSIUM CHLORIDE ER 10 MEQ TAB.ER.PRT PO SCH (10:32)
[2020-08-24] MEDS: PANTOPRAZOLE 40 MG/10 ML VIAL IVP SCH (11:29)
[2020-08-24] MEDS ORDERED: ASPIRIN 300 MG SUPP RECTAL SCH (11:45)
[2020-08-24 11:52] LABS: Glucose,Whole Blood 159 mg/dL (75-99)
[2020-08-24] MEDS: CLOPIDOGREL 75 MG TAB PO SCH (11:53)
[2020-08-24] MEDS: ATORVASTATIN 40 MG TAB PO SCH (11:53)
[2020-08-24] MEDS: MIDODRINE 5 MG TAB PO SCH ×3 (11:54→22:03)
[2020-08-24] MEDS: FERROUS SULFATE 325 MG TAB PO SCH (11:54)
[2020-08-24] MEDS: ASCORBIC ACID 500 MG TAB PO SCH (11:54)
[2020-08-24] MEDS: INSULIN ASPART (NovoLOG) 100 UNIT/ML VIAL SQ SCH ×2 (12:18→18:05)
[2020-08-24] MEDS ORDERED: INSULIN ASPART (NovoLOG) 100 UNIT/ML VIAL SQ SCH (12:30)
--- NOTE | 2020-08-24 14:13 | P.GSCN ---
History of Present Illness History of present illness: 75 white female, I was consulted for placement of urgent Dialysis catheter. Patient had history of for acute chronic renal failure hyperkalemia hypertension patient had a CABG done vieira has a triple-lumen catheter for in the right groin we will place a dialysis catheter. Graft patient was seen in her room neck supple trachea central Chest is clear few crackles the lung bases abdomen is soft nontender Vascular exam showed femorals are 1+ bilateral patient has a triple-lumen catheter in the right femoral approach plan is placement of a dialysis catheter left femoral approach risk and complication discussed Past Medical History Past Medical History: Asthma, Coronary Artery Disease (CAD), Hyperlipidemia, Hypertension, Osteoarthritis (OA) Additional Past Medical History / Comment(s): skin cancer with removals, arth ritis multiple joints, back and cervical pain, ?TIA in her teens-shows up on scan?, pulmonary fibrosis, hyponatremia History of Any Multi-Drug Resistant Organisms: None Reported Past Surgical History: Cholecystectomy, Coronary Bypass/CABG, Heart Cath eterization, Tonsillectomy, Tubal Ligation Additional Past Surgical History / Comment(s): 221 CABG, 2 cardiac caths without intervention, bilateral cataract removal with lens implants, skin cancer removals, cyst removed from neck, colonoscopy, cervical fusion Past Anesthesia/Blood Transfusion Reactions: No Reported Reaction Additional Past Anesthesia/Blood Transfusion Reaction / Comm: Pt has never received blood. Past Psychological History: No Psychological Hx Reported Smoking Status: Former smoker Past Alcohol Use History: None Reported Past Drug Use History: None Reported - Past Family History Brother(s) Family Medical History: Coronary Artery Disease (CAD) Additional Family Medical History / Comment(s): "bad heart" aneurysm Sister(s) Family Medical History: Cancer Additional Family Medical History / Comment(s): breast cancer Mother Family Medical History: Cancer, Coronary Artery Disease (CAD) Additional Family Medical History / Comment(s): Lymphoma, had a pacemaker. Mother at the age of 92yrs. Father Family Medical History: Coronary Artery Disease (CAD), Myocardial Infarction (AL) Additional Family Medical History / Comment(s): Father of a AL at the age of 63 yrs, diagnosed with CAD in his early 50s. Medications and Allergies Home Medications Medication Instructions Recorded Confirmed Type Ipratropium-Albuterol Nebulize 3 ml INHALATION RT-QID PRN 05/18/15 08/22/20 History [Duoneb 0.5 mg-3 mg/3 ml Soln] Ibuprofen [Motrin] 800 mg PO TID PRN 12/05/17 08/22/20 History Albuterol Sulfate [Albuterol 2 puff PO RT-Q6H PRN 08/06/20 08/22/20 History Sulfate Hfa] Acetaminophen Tab [Tylenol] 650 mg PO Q4HR PRN tab 08/19/20 08/22/20 Rx Ascorbic Acid [Vitamin C] 500 mg PO DAILY@1200 #7 tab 08/19/20 08/22/20 Rx Aspirin 325 mg PO DAILY #30 tab 08/19/20 08/22/20 Rx Atorvastatin [Lipitor] 40 mg PO DAILY #30 tab 08/19/20 08/22/20 Rx Clopidogrel [Plavix] 75 mg PO DAILY #30 tab 08/19/20 08/22/20 Rx Ferrous Sulfate [Iron (65 MG 325 mg PO W/LUNCH #7 tab 08/19/20 08/22/20 Rx Elemental)] Furosemide [Lasix] 40 mg PO DAILY #7 tablet 08/19/20 08/22/20 Rx Losartan [Cozaar] 25 mg PO DAILY@1200 #30 tab 08/19/20 08/22/20 Rx Metoprolol Tartrate [Lopressor] 75 mg PO BID #180 tab 08/19/20 08/22/20 Rx Pantoprazole [Protonix] 40 mg PO AC-BRKFST #30 tablet.dr 08/19/20 08/22/20 Rx Potassium Chloride ER [K-Dur 10] 10 meq PO DAILY #7 tab 08/19/20 08/22/20 Rx Sennosides-Docusate Sodium 2 each PO HS PRN #14 tab 08/19/20 08/22/20 Rx [Senokot-S] guaiFENesin-DM 600/30MG [Mucinex 2 each PO Q12HR #14 tab.er.12h 08/19/20 08/22/20 Rx Dm] Allergies Allergy/AdvReac Type Severity Reaction Status Date / Time adhesive Allergy blisters Verified 08/22/20 22:40 latex Allergy Rash/Hives Verified 08/22/20 22:40 Surgical - Exam Vital Signs Temp Pulse Resp BP Pulse Ox 98.6 F 77 22 100/72 97 08/22/20 21:30 08/22/20 21:30 08/22/20 21:30 08/22/20 21:30 08/22/20 21:30 Results - Labs 08/24/20 04:16 08/24/20 11:15 Abnormal Lab Results - Last 24 Hours (Table) 08/24/20 08/24/20 08/24/20 Range/Units 03:19 03:31 03:52 WBC (3.8-10.6) k/uL RBC (3.80-5.40) m/uL Hgb (11.4-16.0) gm/dL Hct (34.0-46.0) % MCHC (31.0-37.0) g/dL RDW (11.5-15.5) % Neutrophils # (Manual) (1.3-7.7) k/uL Lymphocytes # (Manual) (1.0-4.8) k/uL D-Dimer (<0.60) mg/L FEU ABG pH (7.35-7.45) ABG pCO2 (35-45) mmHg ABG pO2 (83-108) mmHg ABG HCO3 (21-25) mmol/L ABG Total CO2 (19-24) mmol/L ABG O2 Saturation (94-97) % Sodium (137-145) mmol/L Potassium (3.5-5.1) mmol/L Chloride (98-107) mmol/L Carbon Dioxide (22-30) mmol/L BUN (7-17) mg/dL Creatinine (0.52-1.04) mg/dL POC Glucose (mg/dL) 60 L 57 L 114 H (75-99) mg/dL Plasma Lactic Acid Garrett (0.7-2.0) mmol/L Calcium (8.4-10.2) mg/dL Total Bilirubin (0.2-1.3) mg/dL AST (14-36) U/L ALT (4-34) U/L Alkaline Phosphatase (38-126) U/L C-Reactive Protein (<10.0) mg/L Total Protein (6.3-8.2) g/dL Procalcitonin (0.02-0.09) ng/mL Urine Appearance (Clear) Urine Protein (Negative) Urine Blood (Negative) Urine Bilirubin (Negative) Urine WBC (0-5) /hpf Urine WBC Clumps (None) /hpf Urine Bacteria (None) /hpf Hyaline Casts (0-2) /lpf Urine Mucus (None) /hpf Urine Yeast (Budding) (None) /hpf 08/24/20 08/24/20 08/24/20 Range/Units 04:02 04:16 04:16 WBC 11.3 H (3.8-10.6) k/uL RBC 2.44 L (3.80-5.40) m/uL Hgb 7.1 L (11.4-16.0) gm/dL Hct 24.0 L (34.0-46.0) % MCHC 29.7 L (31.0-37.0) g/dL RDW 15.6 H (11.5-15.5) % Neutrophils # (Manual) 9.83 H (1.3-7.7) k/uL Lymphocytes # (Manual) 0.57 L (1.0-4.8) k/uL D-Dimer (<0.60) mg/L FEU ABG pH 7.08 L* (7.35-7.45) ABG pCO2 52 H (35-45) mmHg ABG pO2 (83-108) mmHg ABG HCO3 15 L (21-25) mmol/L ABG Total CO2 17 L (19-24) mmol/L ABG O2 Saturation (94-97) % Sodium 129 L (137-145) mmol/L Potassium 7.1 H* (3.5-5.1) mmol/L Chloride 96 L (98-107) mmol/L Carbon Dioxide 11 L (22-30) mmol/L BUN 43 H (7-17) mg/dL Creatinine 3.15 H (0.52-1.04) mg/dL POC Glucose (mg/dL) (75-99) mg/dL Plasma Lactic Acid Garrett (0.7-2.0) mmol/L Calcium 7.5 L (8.4-10.2) mg/dL Total Bilirubin 2.7 H (0.2-1.3) mg/dL AST 1882 H (14-36) U/L ALT 727 H (4-34) U/L Alkaline Phosphatase 134 H (38-126) U/L C-Reactive Protein (<10.0) mg/L Total Protein 6.2 L (6.3-8.2) g/dL Procalcitonin (0.02-0.09) ng/mL Urine Appearance (Clear) Urine Protein (Negative) Urine Blood (Negative) Urine Bilirubin (Negative) Urine WBC (0-5) /hpf Urine WBC Clumps (None) /hpf Urine Bacteria (None) /hpf Hyaline Casts (0-2) /lpf Urine Mucus (None) /hpf Urine Yeast (Budding) (None) /hpf 08/24/20 08/24/20 08/24/20 Range/Units 04:16 04:28 04:47 WBC (3.8-10.6) k/uL RBC (3.80-5.40) m/uL Hgb (11.4-16.0) gm/dL Hct (34.0-46.0) % MCHC (31.0-37.0) g/dL RDW (11.5-15.5) % Neutrophils # (Manual) (1.3-7.7) k/uL Lymphocytes # (Manual) (1.0-4.8) k/uL D-Dimer 21.28 H (<0.60) mg/L FEU ABG pH (7.35-7.45) ABG pCO2 (35-45) mmHg ABG pO2 (83-108) mmHg ABG HCO3 (21-25) mmol/L ABG Total CO2 (19-24) mmol/L ABG O2 Saturation (94-97) % Sodium (137-145) mmol/L Potassium (3.5-5.1) mmol/L Chloride (98-107) mmol/L Carbon Dioxide (22-30) mmol/L BUN (7-17) mg/dL Creatinine (0.52-1.04) mg/dL POC Glucose (mg/dL) 120 H (75-99) mg/dL Plasma Lactic Acid Garrett 7.6 H* (0.7-2.0) mmol/L Calcium (8.4-10.2) mg/dL Total Bilirubin (0.2-1.3) mg/dL AST (14-36) U/L ALT (4-34) U/L Alkaline Phosphatase (38-126) U/L C-Reactive Protein (<10.0) mg/L Total Protein (6.3-8.2) g/dL Procalcitonin (0.02-0.09) ng/mL Urine Appearance (Clear) Urine Protein (Negative) Urine Blood (Negative) Urine Bilirubin (Negative) Urine WBC (0-5) /hpf Urine WBC Clumps (None) /hpf Urine Bacteria (None) /hpf Hyaline Casts (0-2) /lpf Urine Mucus (None) /hpf Urine Yeast (Budding) (None) /hpf 08/24/20 08/24/20 08/24/20 Range/Units 05:00 05:32 05:40 WBC (3.8-10.6) k/uL RBC (3.80-5.40) m/uL Hgb (11.4-16.0) gm/dL Hct (34.0-46.0) % MCHC (31.0-37.0) g/dL RDW (11.5-15.5) % Neutrophils # (Manual) (1.3-7.7) k/uL Lymphocytes # (Manual) (1.0-4.8) k/uL D-Dimer (<0.60) mg/L FEU ABG pH (7.35-7.45) ABG pCO2 (35-45) mmHg ABG pO2 (83-108) mmHg ABG HCO3 (21-25) mmol/L ABG Total CO2 (19-24) mmol/L ABG O2 Saturation (94-97) % Sodium (137-145) mmol/L Potassium (3.5-5.1) mmol/L Chloride (98-107) mmol/L Carbon Dioxide (22-30) mmol/L BUN (7-17) mg/dL Creatinine (0.52-1.04) mg/dL POC Glucose (mg/dL) (75-99) mg/dL Plasma Lactic Acid Garrett (0.7-2.0) mmol/L Calcium (8.4-10.2) mg/dL Total Bilirubin (0.2-1.3) mg/dL AST (14-36) U/L ALT (4-34) U/L Alkaline Phosphatase (38-126) U/L C-Reactive Protein 360.3 H (<10.0) mg/L Total Protein (6.3-8.2) g/dL Procalcitonin 16.57 H (0.02-0.09) ng/mL Urine Appearance Turbid H (Clear) Urine Protein 2+ H (Negative) Urine Blood Trace H (Negative) Urine Bilirubin 1+ H (Negative) Urine WBC 88 H (0-5) /hpf Urine WBC Clumps Many H (None) /hpf Urine Bacteria Few H (None) /hpf Hyaline Casts 33 H (0-2) /lpf Urine Mucus Rare H (None) /hpf Urine Yeast (Budding) Occasional H (None) /hpf 08/24/20 08/24/20 08/24/20 Range/Units 07:43 08:10 08:10 WBC (3.8-10.6) k/uL RBC (3.80-5.40) m/uL Hgb (11.4-16.0) gm/dL Hct (34.0-46.0) % MCHC (31.0-37.0) g/dL RDW (11.5-15.5) % Neutrophils # (Manual) (1.3-7.7) k/uL Lymphocytes # (Manual) (1.0-4.8) k/uL D-Dimer (<0.60) mg/L FEU ABG pH 7.19 L* (7.35-7.45) ABG pCO2 50 H (35-45) mmHg ABG pO2 304 H (83-108) mmHg ABG HCO3 19 L (21-25) mmol/L ABG Total CO2 (19-24) mmol/L ABG O2 Saturation 100.0 H (94-97) % Sodium (137-145) mmol/L Potassium 5.7 H (3.5-5.1) mmol/L Chloride (98-107) mmol/L Carbon Dioxide (22-30) mmol/L BUN (7-17) mg/dL Creatinine (0.52-1.04) mg/dL POC Glucose (mg/dL) (75-99) mg/dL Plasma Lactic Acid Garrett 5.2 H* (0.7-2.0) mmol/L Calcium (8.4-10.2) mg/dL Total Bilirubin (0.2-1.3) mg/dL AST (14-36) U/L ALT (4-34) U/L Alkaline Phosphatase (38-126) U/L C-Reactive Protein (<10.0) mg/L Total Protein (6.3-8.2) g/dL Procalcitonin (0.02-0.09) ng/mL Urine Appearance (Clear) Urine Protein (Negative) Urine Blood (Negative) Urine Bilirubin (Negative) Urine WBC (0-5) /hpf Urine WBC Clumps (None) /hpf Urine Bacteria (None) /hpf Hyaline Casts (0-2) /lpf Urine Mucus (None) /hpf Urine Yeast (Budding) (None) /hpf 08/24/20 08/24/20 08/24/20 Range/Units 09:04 11:15 11:48 WBC (3.8-10.6) k/uL RBC (3.80-5.40) m/uL Hgb (11.4-16.0) gm/dL Hct (34.0-46.0) % MCHC (31.0-37.0) g/dL RDW (11.5-15.5) % Neutrophils # (Manual) (1.3-7.7) k/uL Lymphocytes # (Manual) (1.0-4.8) k/uL D-Dimer (<0.60) mg/L FEU ABG pH (7.35-7.45) ABG pCO2 (35-45) mmHg ABG pO2 (83-108) mmHg ABG HCO3 (21-25) mmol/L ABG Total CO2 (19-24) mmol/L ABG O2 Saturation (94-97) % Sodium (137-145) mmol/L Potassium 5.5 H (3.5-5.1) mmol/L Chloride (98-107) mmol/L Carbon Dioxide (22-30) mmol/L BUN (7-17) mg/dL Creatinine (0.52-1.04) mg/dL POC Glucose (mg/dL) 183 H (75-99) mg/dL Plasma Lactic Acid Garrett 5.6 H* (0.7-2.0) mmol/L Calcium (8.4-10.2) mg/dL Total Bilirubin (0.2-1.3) mg/dL AST (14-36) U/L ALT (4-34) U/L Alkaline Phosphatase (38-126) U/L C-Reactive Protein (<10.0) mg/L Total Protein (6.3-8.2) g/dL Procalcitonin (0.02-0.09) ng/mL Urine Appearance (Clear) Urine Protein (Negative) Urine Blood (Negative) Urine Bilirubin (Negative) Urine WBC (0-5) /hpf Urine WBC Clumps (None) /hpf Urine Bacteria (None) /hpf Hyaline Casts (0-2) /lpf Urine Mucus (None) /hpf Urine Yeast (Budding) (None) /hpf 08/24/20 Range/Units 11:51 WBC (3.8-10.6) k/uL RBC (3.80-5.40) m/uL Hgb (11.4-16.0) gm/dL Hct (34.0-46.0) % MCHC (31.0-37.0) g/dL RDW (11.5-15.5) % Neutrophils # (Manual) (1.3-7.7) k/uL Lymphocytes # (Manual) (1.0-4.8) k/uL D-Dimer (<0.60) mg/L FEU ABG pH (7.35-7.45) ABG pCO2 (35-45) mmHg ABG pO2 (83-108) mmHg ABG HCO3 (21-25) mmol/L ABG Total CO2 (19-24) mmol/L ABG O2 Saturation (94-97) % Sodium (137-145) mmol/L Potassium (3.5-5.1) mmol/L Chloride (98-107) mmol/L Carbon Dioxide (22-30) mmol/L BUN (7-17) mg/dL Creatinine (0.52-1.04) mg/dL POC Glucose (mg/dL) 159 H (75-99) mg/dL Plasma Lactic Acid Garrett (0.7-2.0) mmol/L Calcium (8.4-10.2) mg/dL Total Bilirubin (0.2-1.3) mg/dL AST (14-36) U/L ALT (4-34) U/L Alkaline Phosphatase (38-126) U/L C-Reactive Protein (<10.0) mg/L Total Protein (6.3-8.2) g/dL Procalcitonin (0.02-0.09) ng/mL Urine Appearance (Clear) Urine Protein (Negative) Urine Blood (Negative) Urine Bilirubin (Negative) Urine WBC (0-5) /hpf Urine WBC Clumps (None) /hpf Urine Bacteria (None) /hpf Hyaline Casts (0-2) /lpf Urine Mucus (None) /hpf Urine Yeast (Budding) (None) /hpf Microbiology - Last 24 Hours (Table) 08/24/20 05:45 Gram Stain - Preliminary Chest Wound Culture - Preliminary 08/24/20 05:00 Urine Culture - Preliminary Urine,Voided 08/24/20 05:45 Anaerobic Culture - Preliminary Chest Diabetes panel 08/24/20 08/24/20 08/24/20 Range/Units 04:16 08:10 11:15 Sodium 129 L (137-145) mmol/L Potassium 7.1 H* 5.7 H 5.5 H (3.5-5.1) mmol/L Chloride 96 L (98-107) mmol/L Carbon Dioxide 11 L (22-30) mmol/L BUN 43 H (7-17) mg/dL Creatinine 3.15 H (0.52-1.04) mg/dL Glucose 92 (74-99) mg/dL Calcium 7.5 L (8.4-10.2) mg/dL AST 1882 H (14-36) U/L ALT 727 H (4-34) U/L Alkaline Phosphatase 134 H (38-126) U/L Total Protein 6.2 L (6.3-8.2) g/dL Albumin 3.7 (3.5-5.0) g/dL Calcium panel 08/24/20 Range/Units 04:16 Calcium 7.5 L (8.4-10.2) mg/dL Albumin 3.7 (3.5-5.0) g/dL Pituitary panel 08/24/20 08/24/20 08/24/20 Range/Units 04:16 08:10 11:15 Sodium 129 L (137-145) mmol/L Potassium 7.1 H* 5.7 H 5.5 H (3.5-5.1) mmol/L Chloride 96 L (98-107) mmol/L Carbon Dioxide 11 L (22-30) mmol/L BUN 43 H (7-17) mg/dL Creatinine 3.15 H (0.52-1.04) mg/dL Glucose 92 (74-99) mg/dL Calcium 7.5 L (8.4-10.2) mg/dL Adrenal panel 08/24/20 08/24/20 08/24/20 Range/Units 04:16 08:10 11:15 Sodium 129 L (137-145) mmol/L Potassium 7.1 H* 5.7 H 5.5 H (3.5-5.1) mmol/L Chloride 96 L (98-107) mmol/L Carbon Dioxide 11 L (22-30) mmol/L BUN 43 H (7-17) mg/dL Creatinine 3.15 H (0.52-1.04) mg/dL Glucose 92 (74-99) mg/dL Calcium 7.5 L (8.4-10.2) mg/dL Total Bilirubin 2.7 H (0.2-1.3) mg/dL AST 1882 H (14-36) U/L ALT 727 H (4-34) U/L Alkaline Phosphatase 134 H (38-126) U/L Total Protein 6.2 L (6.3-8.2) g/dL Albumin 3.7 (3.5-5.0) g/dL
--- NOTE | 2020-08-24 14:23 | P.PCN ---
Description of Procedure: Reoperative diagnoses is acute chronic renal failure with hyperkalemia Postoperative is same Procedure patient was seen in the room left groin was prepped and draped applied usual sterile manner 1% lidocaine for infected in the groin area. Ultrasound- guided micropuncture introduced left femoral vein micropuncture cath was passed and 4-Tajik dilator. The guidewire then we passed a regular guidewire without any resistance dilator was advanced and then we placed a double-lumen dialysis catheter guide was removed flushed with heparin saline and Hep-Lock secured with 3-0 nylon patient are to the procedure well thank you
[2020-08-24] MEDS: LIDOCAINE 5% PATCH TOPICAL SCH (14:24)
--- NOTE | 2020-08-24 15:21 | P.CNPUL ---
History of Present Illness Consult date: 08/24/20 Requesting physician: Monica Dubois Reason for consult: other (Acute hypoxic and hypercapnic respiratory failure and sepsis.) Chief complaint: Worsening shortness of breath. History of present illness: This is a 75-year-old female with history of coronary artery disease, had recent left main stenosis and she underwent two-vessel CABG with HOLLAND to LAD, and saphenous vein graft to obtuse marginal on 08/10/2020. Patient was seen by us postoperatively on consultation, and she was eventually discharged. Her other medical problems include history of hyponatremia, pulmonary fibrosis, hypertension, dyslipidemia, [id number] smoking history, cervical stenosis and previous surgical disc disease, history of decompression and fusion. Patient was brought into the ER on 08/22/2020, and she was complaining of shortness of breath, patient was hypoxic and she was noted to have O2 saturation in the 80s. Chest x-ray showed evidence of pulmonary edema with bilateral pleural effusions, and patient was treated mostly with diuretics. However over the last 2 days, patient deteriorated, shortness of breath became worse, and today the patient was extremely dyspneic, chest x-ray was getting worse, patient was hypotensive, required fluid boluses, and I was notified about this patient early this lali judd, advised immediate transfer to the ICU, patient was placed on BiPAP, patient was also seen by nephrology, and her urine output is extremely poor, patient received fluid boluses for hypotension, in the meantime the patient was noted to have significant purulent drainage from her sternal incision site, and she clearly has wound dehiscence and sternal wound infection. Recommended broad- spectrum antibiotics on this patient, started on vancomycin and cefepime, patient was seen by infectious disease on consultation, she was also seen by nephrology planning hemodialysis, and vascular surgery saw the patient and placed a dialysis catheter. In the meantime patient was placed on BiPAP, she received fluids and pressors. I placed a central line in this patient an arterial line. Chest x-ray clearly shows evidence of bilateral interstitial edema. Review of Systems ROS unobtainable: due to endotracheal tube (Patient is on BiPAP, and she is in moderate respiratory distress.) Past Medical History Past Medical History: Asthma, Coronary Artery Disease (CAD), Hyperlipidemia, Hypertension, Osteoarthritis (OA) Additional Past Medical History / Comment(s): skin cancer with removals, arthritis multiple joints, back and cervical pain, ?TIA in her teens-shows up on scan?, pulmonary fibrosis, hyponatremia History of Any Multi-Drug Resistant Organisms: None Reported Past Surgical History: Cholecystectomy, Coronary Bypass/CABG, Heart Catheteri zation, Tonsillectomy, Tubal Ligation Additional Past Surgical History / Comment(s): -07-30 CABG, 2 cardiac caths without intervention, bilateral cataract removal with lens implants, skin cancer removals, cyst removed from neck, colonoscopy, cervical fusion Past Anesthesia/Blood Transfusion Reactions: No Reported Reaction Additional Past Anesthesia/Blood Transfusion Reaction / Comment(s): Pt has never received blood. Past Psychological History: No Psychological Hx Reported Smoking Status: Former smoker Past Alcohol Use History: None Reported Past Drug Use History: None Reported - Past Family History Brother(s) Family Medical History: Coronary Artery Disease (CAD) Additional Family Medical History / Comment(s): "bad heart" aneurysm Sister(s) Family Medical History: Cancer Additional Family Medical History / Comment(s): breast cancer Mother Family Medical History: Cancer, Coronary Artery Disease (CAD) Additional Family Medical History / Comment(s): Lymphoma, had a pacemaker. Mother at the age of 92yrs. Father Family Medical History: Coronary Artery Disease (CAD), Myocardial Infarction (MS) Additional Family Medical History / Comment(s): Father of a MS at the age of 63 yrs, diagnosed with CAD in his early 50s. Medications and Allergies Home Medications Medication Instructions Recorded Confirmed Type Ipratropium-Albuterol Nebulize 3 ml INHALATION RT-QID PRN 05/18/15 08/22/20 History [Duoneb 0.5 mg-3 mg/3 ml Soln] Ibuprofen [Motrin] 800 mg PO TID PRN 12/05/17 08/22/20 History Albuterol Sulfate [Albuterol 2 puff PO RT-Q6H PRN 08/06/20 08/22/20 History Sulfate Hfa] Acetaminophen Tab [Tylenol] 650 mg PO Q4HR PRN tab 08/19/20 08/22/20 Rx Ascorbic Acid [Vitamin C] 500 mg PO DAILY@1200 #7 tab 08/19/20 08/22/20 Rx Aspirin 325 mg PO DAILY #30 tab 08/19/20 08/22/20 Rx Atorvastatin [Lipitor] 40 mg PO DAILY #30 tab 08/19/20 08/22/20 Rx Clopidogrel [Plavix] 75 mg PO DAILY #30 tab 08/19/20 08/22/20 Rx Ferrous Sulfate [Iron (65 MG 325 mg PO W/LUNCH #7 tab 08/19/20 08/22/20 Rx Elemental)] Furosemide [Lasix] 40 mg PO DAILY #7 tablet 08/19/20 08/22/20 Rx Losartan [Cozaar] 25 mg PO DAILY@1200 #30 tab 08/19/20 08/22/20 Rx Metoprolol Tartrate [Lopressor] 75 mg PO BID #180 tab 08/19/20 08/22/20 Rx Pantoprazole [Protonix] 40 mg PO AC-BRKFST #30 tablet.dr 08/19/20 08/22/20 Rx Potassium Chloride ER [K-Dur 10] 10 meq PO DAILY #7 tab 08/19/20 08/22/20 Rx Sennosides-Docusate Sodium 2 each PO HS PRN #14 tab 08/19/20 08/22/20 Rx [Senokot-S] guaiFENesin-DM 600/30MG [Mucinex 2 each PO Q12HR #14 tab.er.12h 08/19/20 08/22/20 Rx Dm] Allergies Allergy/AdvReac Type Severity Reaction Status Date / Time adhesive Allergy blisters Verified 08/22/20 22:40 latex Allergy Rash/Hives Verified 08/22/20 22:40 Physical Exam Vitals: Vital Signs Temp Pulse Pulse Resp BP BP BP 08/24/20 13:15 79 34 H 08/24/20 13:00 81 30 H 08/24/20 12:45 81 36 H 08/24/20 12:30 79 37 H 08/24/20 12:15 79 37 H 08/24/20 12:00 97.8 F 75 32 H 08/24/20 11:45 75 35 H 08/24/20 11:30 75 32 H 08/24/20 11:15 74 29 H 112/60 08/24/20 11:00 79 36 H 08/24/20 10:45 90 32 H 08/24/20 10:30 78 34 H 08/24/20 10:15 78 36 H 08/24/20 10:00 79 38 H 08/24/20 09:45 79 43 H 08/24/20 09:30 77 23 08/24/20 09:15 76 27 H 08/24/20 09:00 78 36 H 08/24/20 08:45 78 38 H 112/60 08/24/20 08:30 76 37 H 109/59 08/24/20 08:15 96.5 F L 75 25 H 107/90 08/24/20 08:00 96.5 F L 75 31 H 96/59 08/24/20 07:45 73 29 H 93/46 08/24/20 07:30 72 30 H 81/43 08/24/20 07:15 70 28 H 74/35 08/24/20 07:00 70 30 H 73/24 08/24/20 06:45 71 31 H 75/26 08/24/20 06:30 72 31 H 98/50 08/24/20 06:15 70 31 H 08/24/20 06:00 71 32 H 83/39 08/24/20 05:45 77 28 H 91/22 08/24/20 05:30 78 35 H 08/24/20 05:15 81 36 H 88/49 08/24/20 05:00 96.9 F L 85 38 H 201/117 08/24/20 04:22 85 32 H 99/65 08/24/20 02:00 36 H 08/24/20 00:00 98.0 F 92 24 96/54 08/23/20 20:55 102 H 08/23/20 20:45 100 08/23/20 20:00 97.9 F 100 32 H 132/60 08/23/20 17:43 94 22 97/49 08/23/20 16:29 119/69 Pulse Ox 08/24/20 13:15 97 08/24/20 13:00 94 L 08/24/20 12:45 96 08/24/20 12:30 97 08/24/20 12:15 99 08/24/20 12:00 99 08/24/20 11:45 96 08/24/20 11:30 97 08/24/20 11:15 98 08/24/20 11:00 87 L 08/24/20 10:45 89 L 02/15/21 10:30 91 L 08/24/20 10:15 90 L 08/24/20 10:00 91 L 08/24/20 09:45 95 08/24/20 09:30 96 08/24/20 09:15 96 08/24/20 09:00 99 08/24/20 08:45 96 08/24/20 08:30 99 08/24/20 08:15 100 08/24/20 08:00 99 08/24/20 07:45 95 08/24/20 07:30 96 08/24/20 07:15 99 08/24/20 07:00 98 08/24/20 06:45 98 08/24/20 06:30 98 08/24/20 06:15 98 08/24/20 06:00 98 08/24/20 05:45 98 08/24/20 05:30 97 08/24/20 05:15 97 08/24/20 05:00 95 08/24/20 04:22 96 08/24/20 02:00 08/24/20 00:00 96 08/23/20 20:55 08/23/20 20:45 08/23/20 20:00 08/23/20 17:43 08/23/20 16:29 Intake and Output 08/24/20 08/24/20 08/24/20 06:59 14:59 22:59 Intake Total 1200 1834.024 Output Total 0 44 Balance 1200 1790.024 Intake: IV 1200 1820 Calcium Gluconate 1 gm In 100 Sodium Chloride 0.9% 100 ml @ 100 mls/hr IVPB ONCE ONE Rx#:[id number] Cefepime 2 gm In Sodium 100 Chloride 0.9% 100 ml @ 25 mls/hr IVPB ONCE STA Rx# :[id number] Dextrose 5% in Water 1, 570 000 ml @ 50 mls/hr IV . Q23H TORIBIO with Sodium Bicarb (1 Meq/ml) 150 ml Rx#:[id number] Sodium Chloride 0.9% 1, 1000 1000 000 ml @ 999 mls/hr IV . Q1H1M ONE Rx#:[id number] Vancomycin 1,500 mg In 250 Sodium Chloride 0.9% 250 ml @ 125 mls/hr IVPB ONCE STA Rx#:[id number] Intake, IV Titration 14.024 Amount Norepinephrine 4 mg In 14.024 Sodium Chloride 0.9% 250 ml @ 0.05 MCG/KG/MIN 14. 973 mls/hr IV [id number] Rx#:[id number] Output: Urine 0 44 Other: Voiding Method Indwelling Catheter Weight 78.6 kg ABP, PAP, CO, CI - Last 8 Hours Arterial Blood Pressure 113/40 Arterial Blood Pressure 120/50 Arterial Blood Pressure 142/54 Arterial Blood Pressure 122/45 Arterial Blood Pressure 119/46 Arterial Blood Pressure 100/37 Arterial Blood Pressure 101/37 Arterial Blood Pressure 98/35 Arterial Blood Pressure 85/30 Arterial Blood Pressure 114/39 Arterial Blood Pressure 113/43 Arterial Blood Pressure 108/39 Arterial Blood Pressure 110/40 Arterial Blood Pressure 122/46 Arterial Blood Pressure 130/53 Arterial Blood Pressure 112/49 Arterial Blood Pressure 123/53 Arterial Blood Pressure 123/51 Arterial Blood Pressure 110/53 PHYSICAL EXAMINATION: Revealed a 75-year-old female, obese, in moderate respiratory distress, on BiPAP, Head: Atraumatic, normocephalic. HEENT: Patient has BiPAP, PERRLA, EOMI, nonicteric, dry mucous membranes. CHEST EXAMINATION: Symmetrical chest expansion, crackles or rhonchi and wheezes noted bilaterally. Surgical sternal incision seems to be open, purulent drainage noted from the lower aspect of the sternum. HEART EXAMINATION Tachycardic, normal S1 and S2, 2/6 systolic murmur throughout the precordium. ABDOMEN: Soft, nontender. Bowel sounds are heard. No organomegaly noted. EXTREMITIES:1+ peripheral pulses with evidence of mild peripheral edema and no calf tenderness noted. NEUROLOGIC EXAMINATION: Patient is awake, alert and oriented x3. Psychiatric: Normal mood affect and normal mental status examination. Skin: No rashes except for dehiscence and purulent drainage from the sternal surgical site. Results - Laboratory Findings CBC and BMP: 08/24/20 04:16 08/24/20 11:15 ABG ABG pH 7.19 (7.35-7.45) L* 08/24/20 07:43 ABG pCO2 50 mmHg (35-45) H 08/24/20 07:43 ABG pO2 304 mmHg (83-108) H 08/24/20 07:43 ABG O2 Saturation 100.0 % (94-97) H 08/24/20 07:43 PT/INR, D-dimer PT 10.9 sec (9.0-12.0) 08/22/20 21:44 INR 1.0 (<1.2) 08/22/20 21:44 D-Dimer 21.28 mg/L FEU (<0.60) H 08/24/20 04:28 Abnormal lab findings: Abnormal Labs 08/22/20 08/22/20 08/22/20 21:44 21:44 21:44 WBC RBC 2.32 L Hgb 7.0 L Hct 21.2 L MCHC RDW Neutrophils # 9.5 H Neutrophils # (Manual) Lymphocytes # 0.5 L Lymphocytes # (Manual) D-Dimer ABG pH ABG pCO2 ABG pO2 ABG HCO3 ABG Total CO2 ABG O2 Saturation Sodium 125 L Potassium Chloride 94 L Carbon Dioxide BUN 30 H Creatinine 1.60 H POC Glucose (mg/dL) Plasma Lactic Acid Garrett Calcium 7.7 L Total Bilirubin 1.4 H AST 57 H ALT 40 H Alkaline Phosphatase Troponin I 0.076 H* C-Reactive Protein Total Protein 5.1 L Albumin 2.6 L Procalcitonin Urine Appearance Urine Protein Urine Blood Urine Bilirubin Urine WBC Urine WBC Clumps Urine Bacteria Hyaline Casts Urine Mucus Urine Yeast (Budding) 08/23/20 08/23/20 08/23/20 00:16 05:36 05:36 WBC RBC 2.54 L Hgb 7.5 L Hct 24.1 L MCHC RDW Neutrophils # 8.0 H Neutrophils # (Manual) Lymphocytes # 0.4 L Lymphocytes # (Manual) D-Dimer ABG pH ABG pCO2 ABG pO2 ABG HCO3 ABG Total CO2 ABG O2 Saturation Sodium Potassium Chloride Carbon Dioxide BUN Creatinine POC Glucose (mg/dL) Plasma Lactic Acid Garrett Calcium Total Bilirubin AST ALT Alkaline Phosphatase Troponin I 0.077 H* 0.094 H* C-Reactive Protein Total Protein Albumin Procalcitonin Urine Appearance Urine Protein Urine Blood Urine Bilirubin Urine WBC Urine WBC Clumps Urine Bacteria Hyaline Casts Urine Mucus Urine Yeast (Budding) 08/23/20 08/24/20 08/24/20 05:36 03:19 03:31 WBC RBC Hgb Hct MCHC RDW Neutrophils # Neutrophils # (Manual) Lymphocytes # Lymphocytes # (Manual) D-Dimer ABG pH ABG pCO2 ABG pO2 ABG HCO3 ABG Total CO2 ABG O2 Saturation Sodium 128 L Potassium Chloride 96 L Carbon Dioxide 18 L BUN 33 H Creatinine 1.99 H POC Glucose (mg/dL) 60 L 57 L Plasma Lactic Acid Garrett Calcium 7.8 L Total Bilirubin 1.5 H AST 63 H ALT 44 H Alkaline Phosphatase 128 H Troponin I C-Reactive Protein Total Protein 5.3 L Albumin 2.6 L Procalcitonin Urine Appearance Urine Protein Urine Blood Urine Bilirubin Urine WBC Urine WBC Clumps Urine Bacteria Hyaline Casts Urine Mucus Urine Yeast (Budding) 08/24/20 08/24/20 08/24/20 03:52 04:02 04:16 WBC 11.3 H RBC 2.44 L Hgb 7.1 L Hct 24.0 L MCHC 29.7 L RDW 15.6 H Neutrophils # Neutrophils # (Manual) 9.83 H Lymphocytes # Lymphocytes # (Manual) 0.57 L D-Dimer ABG pH 7.08 L* ABG pCO2 52 H ABG pO2 ABG HCO3 15 L ABG Total CO2 17 L ABG O2 Saturation Sodium Potassium Chloride Carbon Dioxide BUN Creatinine POC Glucose (mg/dL) 114 H Plasma Lactic Acid Garrett Calcium Total Bilirubin AST ALT Alkaline Phosphatase Troponin I C-Reactive Protein Total Protein Albumin Procalcitonin Urine Appearance Urine Protein Urine Blood Urine Bilirubin Urine WBC Urine WBC Clumps Urine Bacteria Hyaline Casts Urine Mucus Urine Yeast (Budding) 08/24/20 08/24/20 08/24/20 04:16 04:16 04:28 WBC RBC Hgb Hct MCHC RDW Neutrophils # Neutrophils # (Manual) Lymphocytes # Lymphocytes # (Manual) D-Dimer 21.28 H ABG pH ABG pCO2 ABG pO2 ABG HCO3 ABG Total CO2 ABG O2 Saturation Sodium 129 L Potassium 7.1 H* Chloride 96 L Carbon Dioxide 11 L BUN 43 H Creatinine 3.15 H POC Glucose (mg/dL) Plasma Lactic Acid Garrett 7.6 H* Calcium 7.5 L Total Bilirubin 2.7 H AST 1882 H ALT 727 H Alkaline Phosphatase 134 H Troponin I C-Reactive Protein Total Protein 6.2 L Albumin Procalcitonin Urine Appearance Urine Protein Urine Blood Urine Bilirubin Urine WBC Urine WBC Clumps Urine Bacteria Hyaline Casts Urine Mucus Urine Yeast (Budding) 08/24/20 08/24/20 08/24/20 04:47 05:00 05:32 WBC RBC Hgb Hct MCHC RDW Neutrophils # Neutrophils # (Manual) Lymphocytes # Lymphocytes # (Manual) D-Dimer ABG pH ABG pCO2 ABG pO2 ABG HCO3 ABG Total CO2 ABG O2 Saturation Sodium Potassium Chloride Carbon Dioxide BUN Creatinine POC Glucose (mg/dL) 120 H Plasma Lactic Acid Garrett Calcium Total Bilirubin AST ALT Alkaline Phosphatase Troponin I C-Reactive Protein Total Protein Albumin Procalcitonin 16.57 H Urine Appearance Turbid H Urine Protein 2+ H Urine Blood Trace H Urine Bilirubin 1+ H Urine WBC 88 H Urine WBC Clumps Many H Urine Bacteria Few H Hyaline Casts 33 H Urine Mucus Rare H Urine Yeast (Budding) Occasional H 08/24/20 08/24/20 08/24/20 05:40 07:43 08:10 WBC RBC Hgb Hct MCHC RDW Neutrophils # Neutrophils # (Manual) Lymphocytes # Lymphocytes # (Manual) D-Dimer ABG pH 7.19 L* ABG pCO2 50 H ABG pO2 304 H ABG HCO3 19 L ABG Total CO2 ABG O2 Saturation 100.0 H Sodium Potassium Chloride Carbon Dioxide BUN Creatinine POC Glucose (mg/dL) Plasma Lactic Acid Garrett 5.2 H* Calcium Total Bilirubin AST ALT Alkaline Phosphatase Troponin I C-Reactive Protein 360.3 H Total Protein Albumin Procalcitonin Urine Appearance Urine Protein Urine Blood Urine Bilirubin Urine WBC Urine WBC Clumps Urine Bacteria Hyaline Casts Urine Mucus Urine Yeast (Budding) 08/24/20 08/24/20 08/24/20 08:10 09:04 11:15 WBC RBC Hgb Hct MCHC RDW Neutrophils # Neutrophils # (Manual) Lymphocytes # Lymphocytes # (Manual) D-Dimer ABG pH ABG pCO2 ABG pO2 ABG HCO3 ABG Total CO2 ABG O2 Saturation Sodium Potassium 5.7 H 5.5 H Chloride Carbon Dioxide BUN Creatinine POC Glucose (mg/dL) 183 H Plasma Lactic Acid Garrett Calcium Total Bilirubin AST ALT Alkaline Phosphatase Troponin I C-Reactive Protein Total Protein Albumin Procalcitonin Urine Appearance Urine Protein Urine Blood Urine Bilirubin Urine WBC Urine WBC Clumps Urine Bacteria Hyaline Casts Urine Mucus Urine Yeast (Budding) 08/24/20 08/24/20 11:48 11:51 WBC RBC Hgb Hct MCHC RDW Neutrophils # Neutrophils # (Manual) Lymphocytes # Lymphocytes # (Manual) D-Dimer ABG pH ABG pCO2 ABG pO2 ABG HCO3 ABG Total CO2 ABG O2 Saturation Sodium Potassium Chloride Carbon Dioxide BUN Creatinine POC Glucose (mg/dL) 159 H Plasma Lactic Acid Garrett 5.6 H* Calcium Total Bilirubin AST ALT Alkaline Phosphatase Troponin I C-Reactive Protein Total Protein Albumin Procalcitonin Urine Appearance Urine Protein Urine Blood Urine Bilirubin Urine WBC Urine WBC Clumps Urine Bacteria Hyaline Casts Urine Mucus Urine Yeast (Budding) - Diagnostic Findings Chest x-ray: image reviewed (Evidence of pulmonary edema.) Assessment and Plan Assessment: Impression: Acute hypoxic and hypercapnic respiratory failure Sepsis secondary from sternal wound infection and dehiscence Acute kidney injury Acute metabolic acidosis secondary to acute kidney injury and sepsis Acute transaminitis secondary to hypoperfusion. Acute diastolic congestive heart failure with bilateral pleural effusions Septic shock secondary to sternal wound infection and sepsis. Hypervolemic hyponatremia History of hypertension History of cervical stenosis Previous tobacco dependence. History of mild interstitial lung disease/pulmonary fibrosis Recommendation: Continue to monitor the patient in the ICU. Placed on BiPAP, however if not tolerated patient will be intubated and placed on mechanical ventilation. Broad-spectrum antibiotics including vancomycin and cefepime. And infectious disease to be consulted. Pressors as tolerated and will be titrated to adequate mean arterial blood pressure. Stat echocardiogram. GI and DVT prophylaxis. Continue previous cardiac meds. Patient will be seen by different consultants including cardiology, cardiac rossy kev, nephrology, and infectious disease. Prognosis is extremely poor and guarded, we'll continue to follow. Lines including a central line and arterial line were placed for hemodynamic monitoring and for pressors. Critical care time is over 50 minutes not including the time spent on procedures Time with Patient: Greater than 30
[2020-08-24 15:37] LABS: ABG Base Excess -0.8 mmol/L; ABG HCO3 25 mmol/L (21-25); ABG PCO2 43 mmHg (35-45); ABG PH 7.37 (7.35-7.45); ABG PO2 98 mmHg (83-108); ABG TCO2 26 mmol/L (19-24)
[2020-08-24] MEDS ORDERED: CEFEPIME 1 GM in SODIUM CHLORIDE 0.9% 50 ML IVPB SCH (17:00)
--- NOTE | 2020-08-24 17:00 | ECHOF ---
Referral Reason:chf MEASUREMENTS -------- HEIGHT: 152.4 cm WEIGHT: 78.5 kg BP: 122/51 IVSd: 1.4 cm (0.6 - 1.1) LVIDd: 4.0 cm (3.9 - 5.3) LVPWd: 1.4 cm (0.6 - 1.1) IVSs: 2.1 cm LVIDs: 2.5 cm LVPWs: 1.9 cm LA Diam: 3.3 cm (2.7 - 3.8) RVIDd: 3.1 cm (< 3.3) Ao Diam: 3.6 cm (2.0 - 3.7) EPSS: 0.4 cm MV E Berny: 1.13 m/s MV DecT: 141 ms MV A Berny: 0.87 m/s MV E/A Ratio: 1.30 AV maxP.92 mmHg AV meanP.17 mmHg RAP: 5.00 mmHg RVSP: 27.93 mmHg MV EF SLOPE: 78.18 mm/s (70 - 150) MV EXCURSION: 17.35 mm (> 18.000) FINDINGS -------- Sinus rhythm. This was a technically difficult study with suboptimal views. The left ventricular size is normal. There is moderate concentric left ventricular hypertrophy. O verall left ventricular systolic function is normal with, an EF between 55 - 60 %. The right ventricle is normal in size. The left atrium is normal in size. The right atrium is normal in size. 3 ml of Lumason was utilized for enhancement of images. Interatrial and interventricular septum intact. There is mild aortic valve sclerosis. There is mild aortic stenosis present. Peak/mean gradient a cross the Aortic Valve is 20.92mmHg / 10.17mmHg. Mild mitral annular calcification present. Mild mitral regurgitation is present. Mild tricuspid regurgitation present. Right ventricular systolic pressure is normal at < 35 mmHg. Trace/mild (physiologic) pulmonic regurgitation. The aortic root size is normal. Normal inferior vena cava with normal inspiratory collapse consistent with estimated right atrial pre ssure of 5 mmHg. There is no pericardial effusion. CONCLUSIONS -------- 1. The left ventricular size is normal. 2. There is moderate concentric left ventricular hypertrophy. 3. Overall left ventricular systolic function is normal with, an EF between 55 - 60 %. 4. 3 ml of Lumason was utilized for enhancement of images. 5. There is mild aortic valve sclerosis. 6. There is mild aortic stenosis present. 7. Peak/mean gradient across the Aortic Valve is 20.92mmHg / 10.17mmHg. 8. Mild mitral annular calcification present. 9. Mild mitral regurgitation is present. 10. Mild tricuspid regurgitation present. 11. Trace/mild (physiologic) pulmonic regurgitation. 12. There is no pericardial effusion. DIGITAL ACCOUNT COORDINATOR: Heather Cooper RDCS
--- NOTE | 2020-08-24 17:04 | CT ---
EXAMINATION TYPE: CT chest wo con DATE OF EXAM: 08/24/2020 COMPARISON: 09/18/2017 HISTORY: wound dehiscence CT DLP: 429.6 mGycm Automated exposure control for dose reduction was used. Images obtained from the thoracic inlet to the diaphragm without contrast. FINDINGS: There is patchy airspace infiltrates and atelectasis in both lungs. There is moderate bilateral pleur al effusions. Heart is enlarged. There is small pericardial effusion. There is sternotomy defect. The re is air in the sternotomy with mixed attenuation consistent with blood clot and debris at the incis ion site. The dehiscence is more than 2 cm. There is air extending to the pericardium. There are some air bubbles anterior to the heart outside of the pericardial fat pad and probably within the pericar dial sac. There is no pericardial effusion. There is metallic density apparently from stent in the co ronary artery. There are no hilar masses. There is no mediastinal adenopathy. Thoracic spine shows no compression fr acture. IMPRESSION: There is more than 2 cm of dehiscence of the sternotomy with small pneumopericardium. Extensive pulmonary infiltrates with moderate pleural effusions. Lung disease significantly increased compared to old exam. Surgery is new compared to old exam.
--- NOTE | 2020-08-24 17:48 | OP ---
OPERATIVE REPORT OPERATION: Placement of right femoral triple-lumen catheter. PREOPERATIVE DIAGNOSIS: Acute sepsis and septic shock. POSTOPERATIVE DIAGNOSIS: Acute sepsis and septic shock. ANESTHESIA USED: Two mL of 1% lidocaine. PROCEDURE DESCRIPTION: The patient was placed in supine position. The area of the right groin was prepared in a sterile fashion. Drapes were applied. The area was locally anesthetized. Then the right femoral vein was cannulated easily. A guidewire was placed, and a triple-lumen catheter was inserted over the guidewire. The guidewire was removed. The line was secured using 3.0 silk suture. No evidence of any immediate complications. Procedure was well tolerated. MMODL / IJN: [id number] /
--- NOTE | 2020-08-24 17:54 | OP ---
OPERATIVE REPORT OPERATION: Placement of a left radial arterial line. PREOPERATIVE DIAGNOSIS: Acute sepsis and septic shock. POSTOPERATIVE DIAGNOSIS: Acute sepsis and septic shock. ANESTHESIA USED: None deployed. PROCEDURE DESCRIPTION: Patient was placed in supine position. The left wrist was prepared in a sterile fashion and drapes were applied. The left radial artery was palpated, cannulated, and a guidewire was placed. A Cook's catheter was inserted over the guidewire, and the guidewire was removed. Good blood flow and good waveform were noted. No evidence of any complications. Line was secured using 3.0 silk suture. MMODL / IJN: [id number] /
[2020-08-24 17:59] LABS: Glucose,Whole Blood 131 mg/dL (75-99)
[2020-08-24 18:52] LABS: Calcium 7.1 mg/dL (8.4-10.2); Potassium 4.4 mmol/L (3.5-5.1)
[2020-08-24 22:30] LABS: Hepatitis B Surface AB- Quant 3.5 mIU/mL; Hepatitis B Surface Antibody Non-Reactive (Non-Reactive); Hepatitis B Surface Antigen Non-Reactive (Non-Reactive)
--- NOTE | 2020-08-24 23:14 | P.CONS ---
History of Present Illness - Reason for Consult Consult date: 08/24/20 sternal wound infection Requesting physician: Herminio Harrison - Chief Complaint shortness of breath x few days - History of Present Illness Patient is a 75-year female with a past medical history significant for coronary artery disease pulmonary fibrosis in this patient who is status post coronary artery bypass grafting who was sent on 08/10/2020 patient was subsequently stabilized and discharged home on 08/19/2020, patient was brought back to [facility] ER on 08/22/2020 for evaluation of increasing shortness of breath weakness lethargy and hypoxemia apparently the patient was noticed to have an O2 sats of 80% at home on arrival to the ER the patient was n oticed to be hypotensive she received fluid boluses as well as IV Lasix patient on presentation to the hospital was afebrile and no fever has been recorded patient did have a normal white count admission repeat is 11.3 patient noticed to be in renal failure hallucination creatinine was 1.60 and is up was up to 3.15 down to 2.80 today and also have elevated lactic acid she did have elevated procalcitonin patient chest x-ray shows diffuse airspace opacities perhaps infection versus pulmonary edema patient was initially on the floor subsequently transferred to the ICU because of worsening mentation and respiratory status requiring BiPAP pressor support she was noticed to have a drainage from her sternal incision which has been opened up by the nurse practitioner for CT surgery with drainage of purulent material cultures has been obtained patient has been started on vancomycin and cefepime infectious disease was consulted for further management of antibiotic therapy most information has been obtained from review the chart and talking nursing staff as the patient is currently hypoxic on the BiPAP and not a very good historian though did answer some simple question. Review of Systems Positive point has been mentioned in HPI complete review could not be obtained because of underlying mental status. Past Medical History Past Medical History: Asthma, Coronary Artery Disease (CAD), Hyperlipidemia, Hypertension, Osteoarthritis (OA) Additional Past Medical History / Comment(s): skin cancer with removals, arthritis multiple joints, back and cervical pain, ?TIA in her teens-shows up on scan?, pulmonary fibrosis, hyponatremia History of Any Multi-Drug Resistant Organisms: None Reported Past Surgical History: Cholecystectomy, Coronary Bypass/CABG, Heart Catheterization, Tonsillectomy, Tubal Ligation Additional Past Surgical History / Comment(s): 08-10-20 CABG, 2 cardiac caths without intervention, bilateral cataract removal with lens implants, skin cancer removals, cyst removed from neck, colonoscopy, cervical fusion Past Anesthesia/Blood Transfusion Reactions: No Reported Reaction Additional Past Anesthesia/Blood Transfusion Reaction / Comm: Pt has never rec eived blood. Past Psychological History: No Psychological Hx Reported Smoking Status: Former smoker Past Alcohol Use History: None Reported Past Drug Use History: None Reported - Past Family History Brother(s) Family Medical History: Coronary Artery Disease (CAD) Additional Family Medical History / Comment(s): "bad heart" aneurysm Sister(s) Family Medical History: Cancer Additional Family Medical History / Comment(s): breast cancer Mother Family Medical History: Cancer, Coronary Artery Disease (CAD) Additional Family Medical History / Comment(s): Lymphoma, had a pacemaker. Mother at the age of 92yrs. Father Family Medical History: Coronary Artery Disease (CAD), Myocardial Infarction ([place]) Additional Family Medical History / Comment(s): Father of a [place] at the age of 63 yrs, diagnosed with CAD in his early 50s. Medications and Allergies Home Medications Medication Instructions Recorded Confirmed Type Ipratropium-Albuterol Nebulize 3 ml INHALATION RT-QID PRN 05/18/15 08/22/20 His tory [Duoneb 0.5 mg-3 mg/3 ml Soln] Ibuprofen [Motrin] 800 mg PO TID PRN 12/05/17 08/22/20 History Albuterol Sulfate [Albuterol 2 puff PO RT-Q6H PRN 08/06/20 08/22/20 History Sulfate Hfa] Acetaminophen Tab [Tylenol] 650 mg PO Q4HR PRN tab 08/19/20 08/22/20 Rx Ascorbic Acid [Vitamin C] 500 mg PO DAILY@1200 #7 tab 08/19/20 08/22/20 Rx Aspirin 325 mg PO DAILY #30 tab 08/19/20 08/22/20 Rx Atorvastatin [Lipitor] 40 mg PO DAILY #30 tab 08/19/20 08/22/20 Rx Clopidogrel [Plavix] 75 mg PO DAILY #30 tab 08/19/20 08/22/20 Rx Ferrous Sulfate [Iron (65 MG 325 mg PO W/LUNCH #7 tab 08/19/20 08/22/20 Rx Elemental)] Furosemide [Lasix] 40 mg PO DAILY #7 tablet 08/19/20 08/22/20 Rx Losartan [Cozaar] 25 mg PO DAILY@1200 #30 tab 08/19/20 08/22/20 Rx Metoprolol Tartrate [Lopressor] 75 mg PO BID #180 tab 08/19/20 08/22/20 Rx Pantoprazole [Protonix] 40 mg PO AC-BRKFST #30 tablet.dr 08/19/20 08/22/20 Rx Potassium Chloride ER [K-Dur 10] 10 meq PO DAILY #7 tab 08/19/20 08/22/20 Rx Sennosides-Docusate Sodium 2 each PO HS PRN #14 tab 08/19/20 08/22/20 Rx [Senokot-S] guaiFENesin-DM 600/30MG [Mucinex 2 each PO Q12HR #14 tab.er.12h 08/19/20 08/22/20 Rx Dm] Allergies Allergy/AdvReac Type Severity Reaction Status Date / Time adhesive Allergy blisters Verified 08/22/20 22:40 latex Allergy Rash/Hives Verified 08/22/20 22:40 Physical Exam Vitals: Vital Signs Temp Pulse Pulse Resp BP BP BP 08/24/20 12:00 97.8 F 75 32 H 08/24/20 11:45 75 35 H 08/24/20 11:30 75 32 H 08/24/20 11:15 74 29 H 112/60 08/24/20 11:00 79 36 H 08/24/20 10:45 90 32 H 08/24/20 10:30 78 34 H 08/24/20 10:15 78 36 H 08/24/20 10:00 79 38 H 08/24/20 09:45 79 43 H 08/24/20 09:30 77 23 08/24/20 09:15 76 27 H 08/24/20 09:00 78 36 H 08/24/20 08:45 78 38 H 112/60 08/24/20 08:30 76 37 H 109/59 08/24/20 08:15 96.5 F L 75 25 H 107/90 08/24/20 08:00 96.5 F L 75 31 H 96/59 08/24/20 07:45 73 29 H 93/46 08/24/20 07:30 72 30 H 81/43 08/24/20 07:15 70 28 H 74/35 08/24/20 07:00 70 30 H 73/24 08/24/20 06:45 71 31 H 75/26 08/24/20 06:30 72 31 H 98/50 08/24/20 06:15 70 31 H 08/24/20 06:00 71 32 H 83/39 08/24/20 05:45 77 28 H 91/22 08/24/20 05:30 78 35 H 08/24/20 05:15 81 36 H 88/49 08/24/20 05:00 96.9 F L 85 38 H 201/117 08/24/20 04:22 85 32 H 99/65 08/24/20 02:00 36 H 08/24/20 00:00 98.0 F 92 24 96/54 08/23/20 20:55 102 H 08/23/20 20:45 100 08/23/20 20:00 97.9 F 100 32 H 132/60 08/23/20 17:43 94 22 97/49 08/23/20 16:29 119/69 08/23/20 15:04 97.6 F 98 20 130/58 Pulse Ox 08/24/20 12:00 99 08/24/20 11:45 96 08/24/20 11:30 97 08/24/20 11:15 98 08/24/20 11:00 87 L 08/24/20 10:45 89 L 08/24/20 10:30 91 L 08/24/20 10:15 90 L 08/24/20 10:00 91 L 08/24/20 09:45 95 08/24/20 09:30 96 08/24/20 09:15 96 08/24/20 09:00 99 08/24/20 08:45 96 08/24/20 08:30 99 08/24/20 08:15 100 08/24/20 08:00 99 08/24/20 07:45 95 08/24/20 07:30 96 08/24/20 07:15 99 08/24/20 07:00 98 08/24/20 06:45 98 08/24/20 06:30 98 08/24/20 06:15 98 08/24/20 06:00 98 08/24/20 05:45 98 08/24/20 05:30 97 08/24/20 05:15 97 08/24/20 05:00 95 08/24/20 04:22 96 08/24/20 02:00 08/24/20 00:00 96 08/23/20 20:55 08/23/20 20:45 08/23/20 20:00 08/23/20 17:43 08/23/20 16:29 08/23/20 15:04 96 Intake and Output 08/23/20 08/24/20 08/24/20 22:59 06:59 14:59 Intake Total 100 1200 1784.024 Output Total 100 0 24 Balance 0 1200 1760.024 Intake: IV 100 1200 1770 Albumin Human 25% 50 ml 100 In Empty Bag 1 bag @ 50 mls/hr IVPB Q1H TORIBIO Rx#: [id number] Calcium Gluconate 1 gm In 100 Sodium Chloride 0.9% 100 ml @ 100 mls/hr IVPB ONCE ONE Rx#:[id number] Cefepime 2 gm In Sodium 100 Chloride 0.9% 100 ml @ 25 mls/hr IVPB ONCE STA Rx# :[id number] Dextrose 5% in Water 1, 520 000 ml @ 50 mls/hr IV . Q23H TORIBIO with Sodium Bicarb (1 Meq/ml) 150 ml Rx#:[id number] Sodium Chloride 0.9% 1, 1000 1000 000 ml @ 999 mls/hr IV . Q1H1M ONE Rx#:[id number] Vancomycin 1,500 mg In 250 Sodium Chloride 0.9% 250 ml @ 125 mls/hr IVPB ONCE STA Rx#:[id number] Intake, IV Titration 14.024 Amount Norepinephrine 4 mg In 14.024 Sodium Chloride 0.9% 250 ml @ 0.05 MCG/KG/MIN 14. 973 mls/hr IV .[id number] TORIBIO Rx#:[id number] Output: Urine 100 0 24 Uretheral (Yu) 100 Other: Weight 78.6 kg ABP, PAP, CO, CI - Last 8 Hours Arterial Blood Pressure 100/37 Arterial Blood Pressure 101/37 Arterial Blood Pressure 98/35 Arterial Blood Pressure 85/30 Arterial Blood Pressure 114/39 Arterial Blood Pressure 113/43 Arterial Blood Pressure 108/39 Arterial Blood Pressure 110/40 Arterial Blood Pressure 122/46 Arterial Blood Pressure 130/53 Arterial Blood Pressure 112/49 Arterial Blood Pressure 123/53 Arterial Blood Pressure 123/51 Arterial Blood Pressure 110/53 GENERAL DESCRIPTION: Elderly female lying in bed, no distress. No tachypnea or accessory muscle of respiration use. HEENT: Shows Pallor , no scleral icterus. NECK: Trachea central, no thyromegaly. LUNGS: Unlabored breathing. Decrease intensity of breath sounds. No wheeze or crackle. HEART: S1, S2, regular rate and rhythm. Midsternal wound minimal drainage no surrounding redness ABDOMEN: Soft, no tenderness , guarding or rigidity EXTREMITIES: No edema of feet. SKIN: No rash, no masses palpable. NEUROLOGICAL: The patient is awake, alert, oriented x2, mood and affect normal. Results CBC & Chem 7: 08/24/20 04:16 08/24/20 18:00 Labs: Abnormal Lab Results - Last 24 Hours (Table) 08/24/20 08/24/20 08/24/20 Range/Units 03:19 03:31 03:52 WBC (3.8-10.6) k/uL RBC (3.80-5.40) m/uL Hgb (11.4-16.0) gm/dL Hct (34.0-46.0) % MCHC (31.0-37.0) g/dL RDW (11.5-15.5) % Neutrophils # (Manual) (1.3-7.7) k/uL Lymphocytes # (Manual) (1.0-4.8) k/uL D-Dimer (<0.60) mg/L FEU ABG pH (7.35-7.45) ABG pCO2 (35-45) mmHg ABG pO2 (83-108) mmHg ABG HCO3 (21-25) mmol/L ABG Total CO2 (19-24) mmol/L ABG O2 Saturation (94-97) % Sodium (137-145) mmol/L Potassium (3.5-5.1) mmol/L Chloride (98-107) mmol/L Carbon Dioxide (22-30) mmol/L BUN (7-17) mg/dL Creatinine (0.52-1.04) mg/dL POC Glucose (mg/dL) 60 L 57 L 114 H (75-99) mg/dL Plasma Lactic Acid Garrett (0.7-2.0) mmol/L Calcium (8.4-10.2) mg/dL Total Bilirubin (0.2-1.3) mg/dL AST (14-36) U/L ALT (4-34) U/L Alkaline Phosphatase (38-126) U/L C-Reactive Protein (<10.0) mg/L Total Protein (6.3-8.2) g/dL Procalcitonin (0.02-0.09) ng/mL Urine Appearance (Clear) Urine Protein (Negative) Urine Blood (Negative) Urine Bilirubin (Negative) Urine WBC (0-5) /hpf Urine WBC Clumps (None) /hpf Urine Bacteria (None) /hpf Hyaline Casts (0-2) /lpf Urine Mucus (None) /hpf Urine Yeast (Budding) (None) /hpf 08/24/20 08/24/20 08/24/20 Range/Units 04:02 04:16 04:16 WBC 11.3 H (3.8-10.6) k/uL RBC 2.44 L (3.80-5.40) m/uL Hgb 7.1 L (11.4-16.0) gm/dL Hct 24.0 L (34.0-46.0) % MCHC 29.7 L (31.0-37.0) g/dL RDW 15.6 H (11.5-15.5) % Neutrophils # (Manual) 9.83 H (1.3-7.7) k/uL Lymphocytes # (Manual) 0.57 L (1.0-4.8) k/uL D-Dimer (<0.60) mg/L FEU ABG pH 7.08 L* (7.35-7.45) ABG pCO2 52 H (35-45) mmHg ABG pO2 (83-108) mmHg ABG HCO3 15 L (21-25) mmol/L ABG Total CO2 17 L (19-24) mmol/L ABG O2 Saturation (94-97) % Sodium 129 L (137-145) mmol/L Potassium 7.1 H* (3.5-5.1) mmol/L Chloride 96 L (98-107) mmol/L Carbon Dioxide 11 L (22-30) mmol/L BUN 43 H (7-17) mg/dL Creatinine 3.15 H (0.52-1.04) mg/dL POC Glucose (mg/dL) (75-99) mg/dL Plasma Lactic Acid Garrett (0.7-2.0) mmol/L Calcium 7.5 L (8.4-10.2) mg/dL Total Bilirubin 2.7 H (0.2-1.3) mg/dL AST 1882 H (14-36) U/L ALT 727 H (4-34) U/L Alkaline Phosphatase 134 H (38-126) U/L C-Reactive Protein (<10.0) mg/L Total Protein 6.2 L (6.3-8.2) g/dL Procalcitonin (0.02-0.09) ng/mL Urine Appearance (Clear) Urine Protein (Negative) Urine Blood (Negative) Urine Bilirubin (Negative) Urine WBC (0-5) /hpf Urine WBC Clumps (None) /hpf Urine Bacteria (None) /hpf Hyaline Casts (0-2) /lpf Urine Mucus (None) /hpf Urine Yeast (Budding) (None) /hpf 08/24/20 08/24/20 08/24/20 Range/Units 04:16 04:28 04:47 WBC (3.8-10.6) k/uL RBC (3.80-5.40) m/uL Hgb (11.4-16.0) gm/dL Hct (34.0-46.0) % MCHC (31.0-37.0) g/dL RDW (11.5-15.5) % Neutrophils # (Manual) (1.3-7.7) k/uL Lymphocytes # (Manual) (1.0-4.8) k/uL D-Dimer 21.28 H (<0.60) mg/L FEU ABG pH (7.35-7.45) ABG pCO2 (35-45) mmHg ABG pO2 (83-108) mmHg ABG HCO3 (21-25) mmol/L ABG Total CO2 (19-24) mmol/L ABG O2 Saturation (94-97) % Sodium (137-145) mmol/L Potassium (3.5-5.1) mmol/L Chloride (98-107) mmol/L Carbon Dioxide (22-30) mmol/L BUN (7-17) mg/dL Creatinine (0.52-1.04) mg/dL POC Glucose (mg/dL) 120 H (75-99) mg/dL Plasma Lactic Acid Garrett 7.6 H* (0.7-2.0) mmol/L Calcium (8.4-10.2) mg/dL Total Bilirubin (0.2-1.3) mg/dL AST (14-36) U/L ALT (4-34) U/L Alkaline Phosphatase (38-126) U/L C-Reactive Protein (<10.0) mg/L Total Protein (6.3-8.2) g/dL Procalcitonin (0.02-0.09) ng/mL Urine Appearance (Clear) Urine Protein (Negative) Urine Blood (Negative) Urine Bilirubin (Negative) Urine WBC (0-5) /hpf Urine WBC Clumps (None) /hpf Urine Bacteria (None) /hpf Hyaline Casts (0-2) /lpf Urine Mucus (None) /hpf Urine Yeast (Budding) (None) /hpf 08/24/20 08/24/20 08/24/20 Range/Units 05:00 05:32 05:40 WBC (3.8-10.6) k/uL RBC (3.80-5.40) m/uL Hgb (11.4-16.0) gm/dL Hct (34.0-46.0) % MCHC (31.0-37.0) g/dL RDW (11.5-15.5) % Neutrophils # (Manual) (1.3-7.7) k/uL Lymphocytes # (Manual) (1.0-4.8) k/uL D-Dimer (<0.60) mg/L FEU ABG pH (7.35-7.45) ABG pCO2 (35-45) mmHg ABG pO2 (83-108) mmHg ABG HCO3 (21-25) mmol/L ABG Total CO2 (19-24) mmol/L ABG O2 Saturation (94-97) % Sodium (137-145) mmol/L Potassium (3.5-5.1) mmol/L Chloride (98-107) mmol/L Carbon Dioxide (22-30) mmol/L BUN (7-17) mg/dL Creatinine (0.52-1.04) mg/dL POC Glucose (mg/dL) (75-99) mg/dL Plasma Lactic Acid Garrett (0.7-2.0) mmol/L Calcium (8.4-10.2) mg/dL Total Bilirubin (0.2-1.3) mg/dL AST (14-36) U/L ALT (4-34) U/L Alkaline Phosphatase (38-126) U/L C-Reactive Protein 360.3 H (<10.0) mg/L Total Protein (6.3-8.2) g/dL Procalcitonin 16.57 H (0.02-0.09) ng/mL Urine Appearance Turbid H (Clear) Urine Protein 2+ H (Negative) Urine Blood Trace H (Negative) Urine Bilirubin 1+ H (Negative) Urine WBC 88 H (0-5) /hpf Urine WBC Clumps Many H (None) /hpf Urine Bacteria Few H (None) /hpf Hyaline Casts 33 H (0-2) /lpf Urine Mucus Rare H (None) /hpf Urine Yeast (Budding) Occasional H (None) /hpf 08/24/20 08/24/20 08/24/20 Range/Units 07:43 08:10 08:10 WBC (3.8-10.6) k/uL RBC (3.80-5.40) m/uL Hgb (11.4-16.0) gm/dL Hct (34.0-46.0) % MCHC (31.0-37.0) g/dL RDW (11.5-15.5) % Neutrophils # (Manual) (1.3-7.7) k/uL Lymphocytes # (Manual) (1.0-4.8) k/uL D-Dimer (<0.60) mg/L FEU ABG pH 7.19 L* (7.35-7.45) ABG pCO2 50 H (35-45) mmHg ABG pO2 304 H (83-108) mmHg ABG HCO3 19 L (21-25) mmol/L ABG Total CO2 (19-24) mmol/L ABG O2 Saturation 100.0 H (94-97) % Sodium (137-145) mmol/L Potassium 5.7 H (3.5-5.1) mmol/L Chloride (98-107) mmol/L Carbon Dioxide (22-30) mmol/L BUN (7-17) mg/dL Creatinine (0.52-1.04) mg/dL POC Glucose (mg/dL) (75-99) mg/dL Plasma Lactic Acid Garrett 5.2 H* (0.7-2.0) mmol/L Calcium (8.4-10.2) mg/dL Total Bilirubin (0.2-1.3) mg/dL AST (14-36) U/L ALT (4-34) U/L Alkaline Phosphatase (38-126) U/L C-Reactive Protein (<10.0) mg/L Total Protein (6.3-8.2) g/dL Procalcitonin (0.02-0.09) ng/mL Urine Appearance (Clear) Urine Protein (Negative) Urine Blood (Negative) Urine Bilirubin (Negative) Urine WBC (0-5) /hpf Urine WBC Clumps (None) /hpf Urine Bacteria (None) /hpf Hyaline Casts (0-2) /lpf Urine Mucus (None) /hpf Urine Yeast (Budding) (None) /hpf 08/24/20 08/24/20 08/24/20 Range/Units 09:04 11:15 11:48 WBC (3.8-10.6) k/uL RBC (3.80-5.40) m/uL Hgb (11.4-16.0) gm/dL Hct (34.0-46.0) % MCHC (31.0-37.0) g/dL RDW (11.5-15.5) % Neutrophils # (Manual) (1.3-7.7) k/uL Lymphocytes # (Manual) (1.0-4.8) k/uL D-Dimer (<0.60) mg/L FEU ABG pH (7.35-7.45) ABG pCO2 (35-45) mmHg ABG pO2 (83-108) mmHg ABG HCO3 (21-25) mmol/L ABG Total CO2 (19-24) mmol/L ABG O2 Saturation (94-97) % Sodium (137-145) mmol/L Potassium 5.5 H (3.5-5.1) mmol/L Chloride (98-107) mmol/L Carbon Dioxide (22-30) mmol/L BUN (7-17) mg/dL Creatinine (0.52-1.04) mg/dL POC Glucose (mg/dL) 183 H (75-99) mg/dL Plasma Lactic Acid Garrett 5.6 H* (0.7-2.0) mmol/L Calcium (8.4-10.2) mg/dL Total Bilirubin (0.2-1.3) mg/dL AST (14-36) U/L ALT (4-34) U/L Alkaline Phosphatase (38-126) U/L C-Reactive Protein (<10.0) mg/L Total Protein (6.3-8.2) g/dL Procalcitonin (0.02-0.09) ng/mL Urine Appearance (Clear) Urine Protein (Negative) Urine Blood (Negative) Urine Bilirubin (Negative) Urine WBC (0-5) /hpf Urine WBC Clumps (None) /hpf Urine Bacteria (None) /hpf Hyaline Casts (0-2) /lpf Urine Mucus (None) /hpf Urine Yeast (Budding) (None) /hpf 08/24/20 Range/Units 11:51 WBC (3.8-10.6) k/uL RBC (3.80-5.40) m/uL Hgb (11.4-16.0) gm/dL Hct (34.0-46.0) % MCHC (31.0-37.0) g/dL RDW (11.5-15.5) % Neutrophils # (Manual) (1.3-7.7) k/uL Lymphocytes # (Manual) (1.0-4.8) k/uL D-Dimer (<0.60) mg/L FEU ABG pH (7.35-7.45) ABG pCO2 (35-45) mmHg ABG pO2 (83-108) mmHg ABG HCO3 (21-25) mmol/L ABG Total CO2 (19-24) mmol/L ABG O2 Saturation (94-97) % Sodium (137-145) mmol/L Potassium (3.5-5.1) mmol/L Chloride (98-107) mmol/L Carbon Dioxide (22-30) mmol/L BUN (7-17) mg/dL Creatinine (0.52-1.04) mg/dL POC Glucose (mg/dL) 159 H (75-99) mg/dL Plasma Lactic Acid Garrett (0.7-2.0) mmol/L Calcium (8.4-10.2) mg/dL Total Bilirubin (0.2-1.3) mg/dL AST (14-36) U/L ALT (4-34) U/L Alkaline Phosphatase (38-126) U/L C-Reactive Protein (<10.0) mg/L Total Protein (6.3-8.2) g/dL Procalcitonin (0.02-0.09) ng/mL Urine Appearance (Clear) Urine Protein (Negative) Urine Blood (Negative) Urine Bilirubin (Negative) Urine WBC (0-5) /hpf Urine WBC Clumps (None) /hpf Urine Bacteria (None) /hpf Hyaline Casts (0-2) /lpf Urine Mucus (None) /hpf Urine Yeast (Budding) (None) /hpf Microbiology - Last 24 Hours (Table) 08/24/20 05:45 Gram Stain - Preliminary Chest Wound Culture - Preliminary 08/24/20 05:00 Urine Culture - Preliminary Urine,Voided 08/24/20 05:45 Anaerobic Culture - Preliminary Chest Assessment and Plan Assessment: 1-patient with sternal wound dehiscence and drainage of the purulent material with concern for underlying common osteomyelitis in this patient who is status post coronary bypass grafting on August 10, 2020 versus aggressive facial surgical site infection and will need to cover for the gram-positive skin turner such as MRSA and less likely gram-negative infection 2-patient with renal insufficiency and high risk of nephrotoxicity from the vancomycin (1) Sternal wound infection Current Visit: Yes Status: Acute Code(s): S21.101A - UNSP OPN WND R FRNT WL OF THORAX W/O PENET THOR CAVITY, INIT; L08.9 - LOCAL INFECTION OF THE SKIN AND SUBCUTANEOUS TISSUE, UNSP SNOMED Code(s): 86289115 Plan: 1-discontinue vancomycin 2-daptomycin 6 mg/kg every 48 hour dose adjusted to the kidney function 3-await CT of the chest to determine the depth of this infection We will follow on clinical condition and cultures to further adjust medication if needed Thank you for this consultation we will follow the patient along with you Time with Patient: Greater than 30
[2020-08-24 23:52] LABS: Glucose,Whole Blood 124 mg/dL (75-99)
[2020-08-25] MEDS: INSULIN ASPART (NovoLOG) 100 UNIT/ML VIAL SQ SCH ×4 (00:19→18:29)
[2020-08-25] MEDS: DAPTOmycin 500 MG in SODIUM CHLORIDE 0.9% 50 ML IVPB SCH (00:24)
[2020-08-25] MEDS: NOREPINEPHRINE 4 MG in SODIUM CHLORIDE 0.9% 250 ML IV SCH ×5 (00:32→23:00)
[2020-08-25 04:15] LABS: HCT 20.9 % (34.0-46.0); Hypochromasia Moderate; MCH 28.7 pg (25.0-35.0); MCHC 30.9 g/dL (31.0-37.0); Mean Platelet Volume 9.3; Platelet Count 208 k/uL (150-450); Poikilocytosis Slight; RBC 2.25 m/uL (3.80-5.40); RDW 15.4 % (11.5-15.5); WBC 14.3 k/uL (3.8-10.6)
[2020-08-25 04:43] LABS: Albumin 2.8 g/dL (3.5-5.0); Potassium 4.4 mmol/L (3.5-5.1); Total Bilirubin 3.4 mg/dL (0.2-1.3); Total Protein 5.1 g/dL (6.3-8.2)
[2020-08-25 04:46] LABS: MCV 92.9 fL (80.0-100.0)
[2020-08-25 04:47] LABS: HGB 6.5 gm/dL (11.4-16.0)
[2020-08-25 05:07] LABS: Band Neutrophils % 6 %; Lymphocytes # (M) 1.86 k/uL (1.0-4.8); Metamyelocytes # (M) 0.14 k/uL (0); Metamyelocytes % 1 %; Monocytes # (M) 0.29 k/uL (0-1.0); Myelocytes # (M) 0.29 k/uL (0); Myelocytes % 2 %; Neutrophils % (M) 77 %; Nucleated Red Blood Cells 0 /100 WBC (0-0); Total Cells Counted 200
[2020-08-25] MEDS: CEFEPIME 1 GM in SODIUM CHLORIDE 0.9% 50 ML IVPB SCH (05:07)
[2020-08-25 05:08] LABS: Anisocytosis (M) Present; Stomatocytes Present
--- NOTE | 2020-08-25 07:41 | P.PN ---
Subjective Progress Note Date: 08/24/20 HISTORY OF PRESENT ILLNESS This is a 75-year-old female patient of Dr. Rich Avila, Dr. Sloan and Dr. Guadalupe. She has a past medical history significant for hypertension, hype rlipidemia, pulmonary fibrosis, asthma, obesity, remote history of tobacco dependence with smoking 32 years ago, osteoarthritis, cervical stenosis post anterior cervical decompression, discectomy and fusion, TIA as a child at age 11 and family history of premature coronary artery disease with her father being diagnosed in his early 50s. Recently, the patient has been experiencing episodes of shortness of breath over the past 6 months with just minimal activity. She also complained of some lower extremity swelling which did resolve with some diuresis. she underwent a stress test which showed anterior wall ischemia with small reversible defect. a 2-D echocardiogram which showed mild aortic valve insufficiency, mild mitral valve regurgitation, mild tricuspid valve regurgitation and left ventricular function to be normal with an ejection fraction of 55%. Subsequently she underwent an elective heart catheterization on 07/27/2020 which demonstrated a left main stenosis with QING with a calculation of 2.6 mm, a 40% stenosis to her mid left anterior descending coronary artery and a 30% stenosis to her right coronary artery. Due to the patient's symptoms and findings on her heart catheterization of left main stenosis a consult was placed to Dr. Sethi from cardiothoracic surgery for further evaluation and treatment recommendations. During her preoperative workup her serum sodium level was found to be 120 and was admitted prior to surgery for treatment of hyponatremia. Last admission On 08/06/2020-08/19/20 the patient was admitted to the hospital for treatment of her hyponatremia, and once her hyponatremia was resolved on 08/10/2020, asubsequently taken to the operating room where Dr. Sethi performed a double vessel coronary artery bypass grafting surgery using the left internal mammary artery to left anterior setting coronary artery, a reverse greater saphenous vein graft from the aorta to the first obtuse marginal coronary artery, endoscopic harvesting of the left greater saphenous vein from the groin Upon completion of the surgery the patient was transferred to the intensive care unit where she was recovered, monitored hemodynamically and where she progressed cardiac rehabilitation phase Her oxygen was titrated down, she continued to work with physical/occupational therapy and cardiac rehabilitation, she was tolerating an oral diet, her pain was well controlled without narcotics and she was ready to be discharged home with [facility] care on postoperative day #9. Did not require home O2 on last admission however she required new medication changes including diuretics during that last admission. Patient comes in in worsening shortness of breath anasarca, no chest pain, has BARKER, edma without leg pain new medications from last visit was compliant, requiring lipitor 75bid, tolvaptan. meotprolol 75 bid plavix, lasix 40 mg daily losartain 25 asa 325, ferrous sulfate and fluconazole. patient comes in now for CHF, anarsarc ely pleural effusion, consult with dr Sethi. and cardiology, if okay will be cardiothoracic surgeon can also perform the thoracentesis, however with hypoxemia, also have requested Dr. Gamboa's services. Patient has a hemoglobin of 7.0 on and 3, platelet count of 305, hemoglobin right to admission was 8.0 denies any Hemoccult stools, creatinine was 1.60 from a previous of 0.9 blood pressure is in the low 90s systolic, pulse ox, 90 on 4 L nasal cannula, patient was not discharged with home O2 during her last admission 08/24: A-Team was called for mental status changes. Patient was found to have a blood pressure 99/65, heart rate of 85 and pulse ox of 96% on a nonrebreather with respiratory rate of 32. Patient was transferred to the ICU. She was started on vancomycin and cefepime. Patient has been seen by cardiology with plan to continue vasopressor support, patient may need pleurocentesis. Stat echocardiogram was done to rule out pericardial effusion or tamponade. Patient has been seen by nephrology for acute kidney injury secondary to ATN secondary to hypotension and cardiorenal syndrome. Patient is currently on bicarb drip, status post Lasix 80 mg IV once. Renal replacement therapy to be initiated immediately. Vascular consult in place for a dialysis catheter placement and start hemodialysis today with second treatment tomorrow. Sternal wound was producing thick yellowish brown fluid, was opened approximately 2 cm and deep culture was taken, packed and covered with 4 x 4 dressing. She is requiring vasopressors. She is hypothermic and warming blanket is in place.Patient had minimal output yesterday and none today. She is status post 2.5 L of fluids. REVIEW OF SYSTEMS Unable to obtain due to mental status change. PHYSICAL EXAMINATION Gen: This is a 75-year-old female. Patient is resting in bed and appears to be comfortable. She is in the ICU. Tonya blanket in place for hypothermia. HEENT: Head is atraumatic, normocephalic. Pupils equal, round. Sclerae is anicteric. Patient is on Bipap. NECK: Supple. No JVD. No lymphadenopathy. No thyromegaly. LUNGS: Diminished. No wheezes or rhonchi. No intercostal retractions. HEART: Regular rate and rhythm. 2/6 systolic murmur. Dressing in place to sternal wound with reported purulent drainage. ABDOMEN: Soft. Bowel sounds are present. No masses. No tenderness. EXTREMITIES: 2+ bilat pitting edema. No calf tenderness. NEUROLOGICAL: Patient is unresponsive. ASSESSMENT AND PLAN 1. Acute diastolic heart failure, EF 55%, mild AI and mild MR and mild TR, also complicated by severe protein calorie malnutrition, sat echocardiogram, cardiology consultation, patient has worsening hypoxemia thoracic ultrasound, O2 supplementation, IV diuresing 40 mg Lasix every 12 hours, patient might need thoracentesis, either services from cardiothoracic pulmonary do procedure as needed, Lasix 40 mg every 12 hours, 2. Acute hypoxemic respiratory failure secondary to CHF, unknown type, need a new echocardiogram for evaluation, as the patient has new hypoxemia and dyspnea. Patient has underlying pulmonary hypertension as well, consult with coronary, see above. O2 supplementation, patient's currently chest pain-free, negative for covid 3. Acute kidney injury secondary to ATN secondary to hypotension and cardiorenal syndrome. Vascular surgery consult is for dialysis catheter placement and patient be started on hemodialysis today with second treatment tomorrow. 4. Hyperkalemia secondary to potassium supplementation, losartan and acute kidney injury as well as severe acidosis. Consult with nephrology appreciated. Continue medical management. 5. Metabolic acidosis secondary to acute kidney injury. Patient is on a bicarb drip. 6. Metabolic encephalopathy secondary to acute kidney injury, acute heart failure, acute respiratory failure, metabolic acidosis and hyperkalemia. 7. Sepsis with septic shock with multiorgan failure with metabolic encephalopathy, acute kidney injury, acute heart failure, acute respiratory failure. Patient was started on IV antibiotics in the form of vancomycin and cefepime. Patient has required vasopressors. 8. Sepsis with sternal wound dehiscence and possible UTI. Infectious disease consult. Patient is currently on vancomycin and cefepime. 9. Anemia of chronic blood loss from recent surgery. Continue monitor closely and transfuse if hemoglobin 7 or below. 10. Hyponatremia. 11. CAD, with prior CABG performed on 08/10/2020, two-vessel, involving HOLLAND to LAD, and reverse greater saphenous vein to obtuse marginal coronary artery. Continue aspirin 325 mg daily, Plavix 75 mg daily, Toprol all 75 mg twice a day, 12. Moderate protein calorie malnutrition, with anasarca and hypotension. 13. History of pulmonary fibrosis. Continue duo nebs and albuterol 14. Asthma, mild intermittent. Continue ipratropium albuterol nebulizers 15. Hyperlipidemia. Continue statin daily 16. Hypertension. Currently hypotensive 17. GI prophylaxis. Pantoprazole 18. DVT prophylaxis: SCDs 19. Blood sugar management in a nondiabetic. insulin scale ACHS. 20. Dry mouth patient needs an oral lubricant, status post fluconazole Prognosis guarded DISCHARGE PLAN TBD. Impression and plan of care have been directed as dictated by the signing physician. Monica Fragoso nurse practitioner acting as scribe for signing physician. Objective - Vital Signs Vital signs: Vital Signs Temp 96.5 F L 08/24/20 08:15 Pulse 79 08/24/20 10:00 Resp 38 H 08/24/20 10:00 BP 112/60 08/24/20 08:45 Pulse Ox 91 L 08/24/20 10:00 Intake & Output 08/23/20 08/24/20 08/24/20 18:59 06:59 18:59 Intake Total 170 1300 1631.479 Output Total 174 0 0 Balance -4 1300 1631.479 Weight 78.6 kg Intake: IV 50 1300 1620 Albumin Human 25% 50 ml 50 100 In Empty Bag 1 bag @ 50 mls/hr IVPB Q1H TORIBIO Rx#: [id number] Calcium Gluconate 1 gm In 100 Sodium Chloride 0.9% 100 ml @ 100 mls/hr IVPB ONCE ONE Rx#:[id number] Cefepime 2 gm In Sodium 100 Chloride 0.9% 100 ml @ 25 mls/hr IVPB ONCE STA Rx# :[id number] Dextrose 5% in Water 1, 370 000 ml @ 70 mls/hr IV . [id number] TORIBIO with Sodium Bicarb (1 Meq/ml) 150 ml Rx#:[id number] Sodium Chloride 0.9% 1, 1000 1000 000 ml @ 999 mls/hr IV . Q1H1M ONE Rx#:[id number] Vancomycin 1,500 mg In 250 Sodium Chloride 0.9% 250 ml @ 125 mls/hr IVPB ONCE STA Rx#:[id number] Intake, IV Titration 11.479 Amount Norepinephrine 4 mg In 11.479 Sodium Chloride 0.9% 250 ml @ 0.05 MCG/KG/MIN 14. 973 mls/hr IV .[id number] [facility] Rx#:[id number] Oral 120 Output: Urine 100 0 0 Uretheral (Yu) 100 Post Void Residual 74 ABP, PAP, CO, CI - Last Documented Arterial Blood Pressure 122/46 - Labs CBC & Chem 7: 08/25/20 04:00 08/25/20 04:00 Labs: Abnormal Lab Results - Last 24 Hours (Table) 08/24/20 08/24/20 08/24/20 Range/Units 03:19 03:31 03:52 WBC (3.8-10.6) k/uL RBC (3.80-5.40) m/uL Hgb (11.4-16.0) gm/dL Hct (34.0-46.0) % MCHC (31.0-37.0) g/dL RDW (11.5-15.5) % Neutrophils # (Manual) (1.3-7.7) k/uL Lymphocytes # (Manual) (1.0-4.8) k/uL D-Dimer (<0.60) mg/L FEU ABG pH (7.35-7.45) ABG pCO2 (35-45) mmHg ABG pO2 (83-108) mmHg ABG HCO3 (21-25) mmol/L ABG Total CO2 (19-24) mmol/L ABG O2 Saturation (94-97) % Sodium (137-145) mmol/L Potassium (3.5-5.1) mmol/L Chloride (98-107) mmol/L Carbon Dioxide (22-30) mmol/L BUN (7-17) mg/dL Creatinine (0.52-1.04) mg/dL POC Glucose (mg/dL) 60 L 57 L 114 H (75-99) mg/dL Plasma Lactic Acid Garrett (0.7-2.0) mmol/L Calcium (8.4-10.2) mg/dL Total Bilirubin (0.2-1.3) mg/dL AST (14-36) U/L ALT (4-34) U/L Alkaline Phosphatase (38-126) U/L C-Reactive Protein (<10.0) mg/L Total Protein (6.3-8.2) g/dL Urine Appearance (Clear) Urine Protein (Negative) Urine Blood (Negative) Urine Bilirubin (Negative) Urine WBC (0-5) /hpf Urine WBC Clumps (None) /hpf Urine Bacteria (None) /hpf Hyaline Casts (0-2) /lpf Urine Mucus (None) /hpf Urine Yeast (Budding) (None) /hpf 08/24/20 08/24/20 08/24/20 Range/Units 04:02 04:16 04:16 WBC 11.3 H (3.8-10.6) k/uL RBC 2.44 L (3.80-5.40) m/uL Hgb 7.1 L (11.4-16.0) gm/dL Hct 24.0 L (34.0-46.0) % MCHC 29.7 L (31.0-37.0) g/dL RDW 15.6 H (11.5-15.5) % Neutrophils # (Manual) 9.83 H (1.3-7.7) k/uL Lymphocytes # (Manual) 0.57 L (1.0-4.8) k/uL D-Dimer (<0.60) mg/L FEU ABG pH 7.08 L* (7.35-7.45) ABG pCO2 52 H (35-45) mmHg ABG pO2 (83-108) mmHg ABG HCO3 15 L (21-25) mmol/L ABG Total CO2 17 L (19-24) mmol/L ABG O2 Saturation (94-97) % Sodium 129 L (137-145) mmol/L Potassium 7.1 H* (3.5-5.1) mmol/L Chloride 96 L (98-107) mmol/L Carbon Dioxide 11 L (22-30) mmol/L BUN 43 H (7-17) mg/dL Creatinine 3.15 H (0.52-1.04) mg/dL POC Glucose (mg/dL) (75-99) mg/dL Plasma Lactic Acid Garrett (0.7-2.0) mmol/L Calcium 7.5 L (8.4-10.2) mg/dL Total Bilirubin 2.7 H (0.2-1.3) mg/dL AST 1882 H (14-36) U/L ALT 727 H (4-34) U/L Alkaline Phosphatase 134 H (38-126) U/L C-Reactive Protein (<10.0) mg/L Total Protein 6.2 L (6.3-8.2) g/dL Urine Appearance (Clear) Urine Protein (Negative) Urine Blood (Negative) Urine Bilirubin (Negative) Urine WBC (0-5) /hpf Urine WBC Clumps (None) /hpf Urine Bacteria (None) /hpf Hyaline Casts (0-2) /lpf Urine Mucus (None) /hpf Urine Yeast (Budding) (None) /hpf 08/24/20 08/24/20 08/24/20 Range/Units 04:16 04:28 04:47 WBC (3.8-10.6) k/uL RBC (3.80-5.40) m/uL Hgb (11.4-16.0) gm/dL Hct (34.0-46.0) % MCHC (31.0-37.0) g/dL RDW (11.5-15.5) % Neutrophils # (Manual) (1.3-7.7) k/uL Lymphocytes # (Manual) (1.0-4.8) k/uL D-Dimer 21.28 H (<0.60) mg/L FEU ABG pH (7.35-7.45) ABG pCO2 (35-45) mmHg ABG pO2 (83-108) mmHg ABG HCO3 (21-25) mmol/L ABG Total CO2 (19-24) mmol/L ABG O2 Saturation (94-97) % Sodium (137-145) mmol/L Potassium (3.5-5.1) mmol/L Chloride (98-107) mmol/L Carbon Dioxide (22-30) mmol/L BUN (7-17) mg/dL Creatinine (0.52-1.04) mg/dL POC Glucose (mg/dL) 120 H (75-99) mg/dL Plasma Lactic Acid Garrett 7.6 H* (0.7-2.0) mmol/L Calcium (8.4-10.2) mg/dL Total Bilirubin (0.2-1.3) mg/dL AST (14-36) U/L ALT (4-34) U/L Alkaline Phosphatase (38-126) U/L C-Reactive Protein (<10.0) mg/L Total Protein (6.3-8.2) g/dL Urine Appearance (Clear) Urine Protein (Negative) Urine Blood (Negative) Urine Bilirubin (Negative) Urine WBC (0-5) /hpf Urine WBC Clumps (None) /hpf Urine Bacteria (None) /hpf Hyaline Casts (0-2) /lpf Urine Mucus (None) /hpf Urine Yeast (Budding) (None) /hpf 08/24/20 08/24/20 08/24/20 Range/Units 05:00 05:40 07:43 WBC (3.8-10.6) k/uL RBC (3.80-5.40) m/uL Hgb (11.4-16.0) gm/dL Hct (34.0-46.0) % MCHC (31.0-37.0) g/dL RDW (11.5-15.5) % Neutrophils # (Manual) (1.3-7.7) k/uL Lymphocytes # (Manual) (1.0-4.8) k/uL D-Dimer (<0.60) mg/L FEU ABG pH 7.19 L* (7.35-7.45) ABG pCO2 50 H (35-45) mmHg ABG pO2 304 H (83-108) mmHg ABG HCO3 19 L (21-25) mmol/L ABG Total CO2 (19-24) mmol/L ABG O2 Saturation 100.0 H (94-97) % Sodium (137-145) mmol/L Potassium (3.5-5.1) mmol/L Chloride (98-107) mmol/L Carbon Dioxide (22-30) mmol/L BUN (7-17) mg/dL Creatinine (0.52-1.04) mg/dL POC Glucose (mg/dL) (75-99) mg/dL Plasma Lactic Acid Garrett (0.7-2.0) mmol/L Calcium (8.4-10.2) mg/dL Total Bilirubin (0.2-1.3) mg/dL AST (14-36) U/L ALT (4-34) U/L Alkaline Phosphatase (38-126) U/L C-Reactive Protein 360.3 H (<10.0) mg/L Total Protein (6.3-8.2) g/dL Urine Appearance Turbid H (Clear) Urine Protein 2+ H (Negative) Urine Blood Trace H (Negative) Urine Bilirubin 1+ H (Negative) Urine WBC 88 H (0-5) /hpf Urine WBC Clumps Many H (None) /hpf Urine Bacteria Few H (None) /hpf Hyaline Casts 33 H (0-2) /lpf Urine Mucus Rare H (None) /hpf Urine Yeast (Budding) Occasional H (None) /hpf 08/24/20 08/24/20 08/24/20 Range/Units 08:10 08:10 09:04 WBC (3.8-10.6) k/uL RBC (3.80-5.40) m/uL Hgb (11.4-16.0) gm/dL Hct (34.0-46.0) % MCHC (31.0-37.0) g/dL RDW (11.5-15.5) % Neutrophils # (Manual) (1.3-7.7) k/uL Lymphocytes # (Manual) (1.0-4.8) k/uL D-Dimer (<0.60) mg/L FEU ABG pH (7.35-7.45) ABG pCO2 (35-45) mmHg ABG pO2 (83-108) mmHg ABG HCO3 (21-25) mmol/L ABG Total CO2 (19-24) mmol/L ABG O2 Saturation (94-97) % Sodium (137-145) mmol/L Potassium 5.7 H (3.5-5.1) mmol/L Chloride (98-107) mmol/L Carbon Dioxide (22-30) mmol/L BUN (7-17) mg/dL Creatinine (0.52-1.04) mg/dL POC Glucose (mg/dL) 183 H (75-99) mg/dL Plasma Lactic Acid Garrett 5.2 H* (0.7-2.0) mmol/L Calcium (8.4-10.2) mg/dL Total Bilirubin (0.2-1.3) mg/dL AST (14-36) U/L ALT (4-34) U/L Alkaline Phosphatase (38-126) U/L C-Reactive Protein (<10.0) mg/L Total Protein (6.3-8.2) g/dL Urine Appearance (Clear) Urine Protein (Negative) Urine Blood (Negative) Urine Bilirubin (Negative) Urine WBC (0-5) /hpf Urine WBC Clumps (None) /hpf Urine Bacteria (None) /hpf Hyaline Casts (0-2) /lpf Urine Mucus (None) /hpf Urine Yeast (Budding) (None) /hpf Microbiology - Last 24 Hours (Table) 08/24/20 05:45 Anaerobic Culture - Preliminary Chest 08/24/20 05:45 Wound Culture - Preliminary Chest
[2020-08-25] MEDS ORDERED: METOPROLOL TARTRATE 5 MG/5 ML VIAL IVP ONE ×2 (08:02→15:21)
[2020-08-25] MEDS ORDERED: bisacodyL 10 MG SUPP RECTAL PRN (08:20)
--- NOTE | 2020-08-25 08:42 | P.PN ---
Subjective Progress Note Date: 08/25/20 Principal diagnosis: Hypotension This is a 75-year-old female patient who underwent coronary artery bypass grafting times to 2 weeks ago with also history of pulmonary fibrosis as well as multiple comorbid conditions was admitted to the hospital initiated with increasing shortness of breath without any symptoms of chest pain or chest discomfort. Subsequently the patient was admitted to the [address] [place] [address] unit and subsequently she was transferred to the intensive. For increasing shortness of breath and also change in mental status. The patient was seen this morning. Her mentation is definitely better but she still confused slightly. Hemodynamically she is stable and she is not on any norepinephrine. She continues to be in normal sinus mechanism. The kidney function is slightly better. There is some concern regarding sepsis mainly as etiology for her hospital admission and low blood pressure yesterday. The echo revealed normal LV function was mild aortic stenosis. Objective - Vital Signs Vital signs: Vital Signs Temp 100.3 F H 08/25/20 08:00 Pulse 84 08/25/20 08:15 Resp 26 H 08/25/20 08:15 BP 74/38 08/24/20 20:45 Pulse Ox 92 L 08/25/20 08:15 Intake & Output 08/24/20 08/25/20 08/25/20 18:59 06:59 18:59 Intake Total 2129.874 1037.447 146 Output Total 2304 160 70 Balance -174.126 877.447 76 Weight 83.4 kg Intake: IV 2088 896 146 .9 NS 110 40 Cefepime 2 gm In Sodium 100 Chloride 0.9% 100 ml @ 25 mls/hr IVPB ONCE STA Rx# :[id number] DAPTOmycin 500 mg In 50 Sodium Chloride 0.9% 50 ml @ 100 mls/hr IVPB Q48H [facility] Rx#:[id number] Dextrose 5% in Water 1, 820 600 100 000 ml @ 50 mls/hr IV . Q23H [facility] with Sodium Bicarb (1 Meq/ml) 150 ml Rx#:[id number] Pressure Bag 18 36 6 Sodium Chloride 0.9% 1, 1000 000 ml @ 999 mls/hr IV . Q1H1M ONE Rx#:[id number] Vancomycin 1,500 mg In 250 Sodium Chloride 0.9% 250 ml @ 125 mls/hr IVPB ONCE STA Rx#:[id number] Intake, IV Titration 41.874 141.447 Amount Norepinephrine 4 mg In 41.874 141.447 Sodium Chloride 0.9% 250 ml @ 0.05 MCG/KG/MIN 14. 973 mls/hr IV .[id number] [facility] Rx#:[id number] Output: Urine 104 160 70 Hemodialysis 2200 Other: Voiding Method Indwelling Catheter Indwelling Catheter ABP, PAP, CO, CI - Last Documented Arterial Blood Pressure 151/49 - Constitutional General appearance: Present: no acute distress - Respiratory Respiratory: bilateral: diminished - Cardiovascular Rhythm: regular Heart sounds: normal: S1, S2 - Labs CBC & Chem 7: 08/25/20 04:00 08/25/20 04:00 Labs: Abnormal Lab Results - Last 24 Hours (Table) 08/24/20 08/24/20 08/24/20 Range/Units 05:32 08:10 08:10 WBC (3.8-10.6) k/uL RBC (3.80-5.40) m/uL Hgb (11.4-16.0) gm/dL Hct (34.0-46.0) % MCHC (31.0-37.0) g/dL Neutrophils # (Manual) (1.3-7.7) k/uL Metamyelocytes # (Man) (0) k/uL Myelocytes # (Manual) (0) k/uL ESR (0-20) mm/hr ABG Total CO2 (19-24) mmol/L ABG O2 Saturation (94-97) % Sodium (137-145) mmol/L Potassium 5.7 H (3.5-5.1) mmol/L Chloride (98-107) mmol/L BUN (7-17) mg/dL Creatinine (0.52-1.04) mg/dL Glucose (74-99) mg/dL POC Glucose (mg/dL) (75-99) mg/dL Plasma Lactic Acid Garrett 5.2 H* (0.7-2.0) mmol/L Calcium (8.4-10.2) mg/dL Total Bilirubin (0.2-1.3) mg/dL AST (14-36) U/L ALT (4-34) U/L Alkaline Phosphatase (38-126) U/L C-Reactive Protein (<10.0) mg/L Total Protein (6.3-8.2) g/dL Albumin (3.5-5.0) g/dL Procalcitonin 16.57 H (0.02-0.09) ng/mL 08/24/20 08/24/20 08/24/20 Range/Units 09:04 11:15 11:48 WBC (3.8-10.6) k/uL RBC (3.80-5.40) m/uL Hgb (11.4-16.0) gm/dL Hct (34.0-46.0) % MCHC (31.0-37.0) g/dL Neutrophils # (Manual) (1.3-7.7) k/uL Metamyelocytes # (Man) (0) k/uL Myelocytes # (Manual) (0) k/uL ESR (0-20) mm/hr ABG Total CO2 (19-24) mmol/L ABG O2 Saturation (94-97) % Sodium (137-145) mmol/L Potassium 5.5 H (3.5-5.1) mmol/L Chloride (98-107) mmol/L BUN (7-17) mg/dL Creatinine (0.52-1.04) mg/dL Glucose (74-99) mg/dL POC Glucose (mg/dL) 183 H (75-99) mg/dL Plasma Lactic Acid Garrett 5.6 H* (0.7-2.0) mmol/L Calcium (8.4-10.2) mg/dL Total Bilirubin (0.2-1.3) mg/dL AST (14-36) U/L ALT (4-34) U/L Alkaline Phosphatase (38-126) U/L C-Reactive Protein (<10.0) mg/L Total Protein (6.3-8.2) g/dL Albumin (3.5-5.0) g/dL Procalcitonin (0.02-0.09) ng/mL 08/24/20 08/24/20 08/24/20 Range/Units 11:51 15:33 17:36 WBC (3.8-10.6) k/uL RBC (3.80-5.40) m/uL Hgb (11.4-16.0) gm/dL Hct (34.0-46.0) % MCHC (31.0-37.0) g/dL Neutrophils # (Manual) (1.3-7.7) k/uL Metamyelocytes # (Man) (0) k/uL Myelocytes # (Manual) (0) k/uL ESR (0-20) mm/hr ABG Total CO2 26 H (19-24) mmol/L ABG O2 Saturation 98.0 H (94-97) % Sodium (137-145) mmol/L Potassium (3.5-5.1) mmol/L Chloride (98-107) mmol/L BUN (7-17) mg/dL Creatinine (0.52-1.04) mg/dL Glucose (74-99) mg/dL POC Glucose (mg/dL) 159 H (75-99) mg/dL Plasma Lactic Acid Garrett 3.6 H* (0.7-2.0) mmol/L Calcium (8.4-10.2) mg/dL Total Bilirubin (0.2-1.3) mg/dL AST (14-36) U/L ALT (4-34) U/L Alkaline Phosphatase (38-126) U/L C-Reactive Protein (<10.0) mg/L Total Protein (6.3-8.2) g/dL Albumin (3.5-5.0) g/dL Procalcitonin (0.02-0.09) ng/mL 08/24/20 08/24/20 08/24/20 Range/Units 17:39 18:00 22:10 WBC (3.8-10.6) k/uL RBC (3.80-5.40) m/uL Hgb (11.4-16.0) gm/dL Hct (34.0-46.0) % MCHC (31.0-37.0) g/dL Neutrophils # (Manual) (1.3-7.7) k/uL Metamyelocytes # (Man) (0) k/uL Myelocytes # (Manual) (0) k/uL ESR (0-20) mm/hr ABG Total CO2 (19-24) mmol/L ABG O2 Saturation (94-97) % Sodium 135 L (137-145) mmol/L Potassium (3.5-5.1) mmol/L Chloride 97 L (98-107) mmol/L BUN 34 H (7-17) mg/dL Creatinine 2.80 H (0.52-1.04) mg/dL Glucose 120 H (74-99) mg/dL POC Glucose (mg/dL) 131 H (75-99) mg/dL Plasma Lactic Acid Garrett 4.0 H* (0.7-2.0) mmol/L Calcium 7.1 L (8.4-10.2) mg/dL Total Bilirubin (0.2-1.3) mg/dL AST (14-36) U/L ALT (4-34) U/L Alkaline Phosphatase (38-126) U/L C-Reactive Protein (<10.0) mg/L Total Protein (6.3-8.2) g/dL Albumin (3.5-5.0) g/dL Procalcitonin (0.02-0.09) ng/mL 08/24/20 08/25/20 08/25/20 Range/Units 23:49 04:00 04:00 WBC 14.3 H (3.8-10.6) k/uL RBC 2.25 L (3.80-5.40) m/uL Hgb 6.5 L* (11.4-16.0) gm/dL Hct 20.9 L (34.0-46.0) % MCHC 30.9 L (31.0-37.0) g/dL Neutrophils # (Manual) 11.80 H (1.3-7.7) k/uL Metamyelocytes # (Man) 0.14 H (0) k/uL Myelocytes # (Manual) 0.29 H (0) k/uL ESR (0-20) mm/hr ABG Total CO2 (19-24) mmol/L ABG O2 Saturation (94-97) % Sodium 136 L (137-145) mmol/L Potassium (3.5-5.1) mmol/L Chloride 96 L (98-107) mmol/L BUN 43 H (7-17) mg/dL Creatinine 2.79 H (0.52-1.04) mg/dL Glucose 113 H (74-99) mg/dL POC Glucose (mg/dL) 124 H (75-99) mg/dL Plasma Lactic Acid Garrett (0.7-2.0) mmol/L Calcium 7.0 L (8.4-10.2) mg/dL Total Bilirubin 3.4 H (0.2-1.3) mg/dL AST 2874 H (14-36) U/L ALT 1469 H (4-34) U/L Alkaline Phosphatase 192 H (38-126) U/L C-Reactive Protein (<10.0) mg/L Total Protein 5.1 L (6.3-8.2) g/dL Albumin 2.8 L (3.5-5.0) g/dL Procalcitonin (0.02-0.09) ng/mL 08/25/20 08/25/20 08/25/20 Range/Units 04:00 04:00 04:00 WBC (3.8-10.6) k/uL RBC (3.80-5.40) m/uL Hgb (11.4-16.0) gm/dL Hct (34.0-46.0) % MCHC (31.0-37.0) g/dL Neutrophils # (Manual) (1.3-7.7) k/uL Metamyelocytes # (Man) (0) k/uL Myelocytes # (Manual) (0) k/uL ESR 28 H (0-20) mm/hr ABG Total CO2 (19-24) mmol/L ABG O2 Saturation (94-97) % Sodium (137-145) mmol/L Potassium (3.5-5.1) mmol/L Chloride (98-107) mmol/L BUN (7-17) mg/dL Creatinine (0.52-1.04) mg/dL Glucose (74-99) mg/dL POC Glucose (mg/dL) (75-99) mg/dL Plasma Lactic Acid Garrett 3.9 H* (0.7-2.0) mmol/L Calcium (8.4-10.2) mg/dL Total Bilirubin (0.2-1.3) mg/dL AST (14-36) U/L ALT (4-34) U/L Alkaline Phosphatase (38-126) U/L C-Reactive Protein 356.2 H (<10.0) mg/L Total Protein (6.3-8.2) g/dL Albumin (3.5-5.0) g/dL Procalcitonin (0.02-0.09) ng/mL 08/25/20 Range/Units 07:10 WBC (3.8-10.6) k/uL RBC (3.80-5.40) m/uL Hgb (11.4-16.0) gm/dL Hct (34.0-46.0) % MCHC (31.0-37.0) g/dL Neutrophils # (Manual) (1.3-7.7) k/uL Metamyelocytes # (Man) (0) k/uL Myelocytes # (Manual) (0) k/uL ESR (0-20) mm/hr ABG Total CO2 (19-24) mmol/L ABG O2 Saturation (94-97) % Sodium (137-145) mmol/L Potassium (3.5-5.1) mmol/L Chloride (98-107) mmol/L BUN (7-17) mg/dL Creatinine (0.52-1.04) mg/dL Glucose (74-99) mg/dL POC Glucose (mg/dL) (75-99) mg/dL Plasma Lactic Acid Garrett 2.9 H* (0.7-2.0) mmol/L Calcium (8.4-10.2) mg/dL Total Bilirubin (0.2-1.3) mg/dL AST (14-36) U/L ALT (4-34) U/L Alkaline Phosphatase (38-126) U/L C-Reactive Protein (<10.0) mg/L Total Protein (6.3-8.2) g/dL Albumin (3.5-5.0) g/dL Procalcitonin (0.02-0.09) ng/mL Microbiology - Last 24 Hours (Table) 08/24/20 05:32 Blood Culture Gram Stain - Preliminary Blood 08/24/20 05:40 Blood Culture Gram Stain - Preliminary Blood 08/24/20 05:32 Blood Culture - Final Blood 08/24/20 05:40 Blood Culture - Final Blood 08/24/20 05:45 Gram Stain - Preliminary Chest Wound Culture - Preliminary 08/24/20 05:00 Urine Culture - Preliminary Urine,Voided 08/24/20 05:45 Anaerobic Culture - Preliminary Chest Assessment and Plan Assessment: Assessment #1 change in mental status #2 acute respiratory distress #3 hypotension which has resolved #4 status post open heart surgery #5 pulmonary fibrosis #6 acute on chronic renal failure Plan #1 continue the current medical regimen #2 continue monitor the kidney function and electrolytes #3 the echo was reviewed and showed normal LV function
[2020-08-25] MEDS ORDERED: VANCOMYCIN 1,500 MG in SODIUM CHLORIDE 0.9% 250 ML IVPB ONE (09:00)
[2020-08-25] MEDS ORDERED: bisacodyL 10 MG SUPP RECTAL SCH (09:00)
[2020-08-25] MEDS ORDERED: CALCIUM GLUCONATE 1 GM in SODIUM CHLORIDE 0.9% 100 ML IVPB ONE (09:08)
[2020-08-25 09:44] LABS: ABG Base Excess 5.7 mmol/L; ABG HCO3 29 mmol/L (21-25); ABG PCO2 40 mmHg (35-45); ABG PH 7.47 (7.35-7.45); ABG PO2 74 mmHg (83-108); ABG TCO2 31 mmol/L (19-24)
[2020-08-25 09:46] LABS: Allen Test Performed? no
--- NOTE | 2020-08-25 10:04 | XR ---
EXAMINATION TYPE: XR chest 1V portable DATE OF EXAM: 08/25/2020 COMPARISON: 08/24/2020 HISTORY: Shortness of breath TECHNIQUE: Single frontal view of the chest is obtained. FINDINGS: Bilateral pleural effusions and diffuse bilateral areas of dilation are stable. Postsurgic al changes are seen. Arthropathy of the shoulders. No pneumothorax. Hypertrophic and degenerative pete nge of the spine. Heart remains enlarged. IMPRESSION: Diffuse bilateral infiltrate and pleural effusion stable.
--- NOTE | 2020-08-25 10:30 | P.PN ---
Subjective Progress Note Date: 08/25/20 Principal diagnosis: Shortness of breath, likely acute diastolic heart failure, bilateral pleural effusion, lactic acidosis, hypercapnic respiratory failure requiring BiPAP, acute kidney injury, acute hyperkalemia, hyponatremia, acute transaminitis, hypotension requiring vasopressors use. Previous medical history of coronary artery disease with left main stenosis status post 2 vessel CABG on 08/10/2020 with expected postoperative acute blood loss anemia, hypotension, and urinary retention as well as candidal stomatititus, hyponatremia, pulmonary fibrosis, asthma, hypertension, hyperlipidemia, previous tobacco dependence, obesity, osteoarthritis, cervical stenosis post anterior cervical disc decompression, discectomy and fusion, TIA as a child, family history of premature coronary artery disease. Paroxysmal Afib w/ RVR The patient was seen and examined at the bedside in the ICU. Patient appears somewhat improved, she is alert and oriented to person and place, unable to tell year. Appears very anxious at times. Off bipap, currently on 15L high flow nasal cannula. Off pressors since 399. Did have an episode of Afib with RVR this am, treated with IV lopressor, currently in NSR with heart rate in the 80s. She did receive dialysis yesterday, today's ABG 7.47/40/74/29/5.7, WBC 14.3 with 6% bands, Hgb 6.5, BUN 43, creat 2.79, K 4.4, Na 136, AST 2874, ALT 1469 with total bili 3.4, lactic acid 2.9, ESR 28, CRP 356, preliminary blood culture gram stain showing gram positive cocci, preliminary sternal wound culture showing gram positive cocci presumably staph, urine culture pending. Currently on IV cefepime and daptomycin per Infectious Disease. TTE completed yesterday demonstrated normal LV function with EF 55-60% with no evidence of pericardial effusion or tamponade. Expected to receive dialysis again today and receive 1 unit PRBCs. Objective - Vital Signs Vital signs: Vital Signs Temp 100.3 F H 08/25/20 08:00 Pulse 92 08/25/20 09:00 Resp 48 H 08/25/20 09:00 BP 74/38 08/24/20 20:45 Pulse Ox 91 L 08/25/20 09:00 Intake & Output 08/24/20 08/25/20 08/25/20 18:59 06:59 18:59 Intake Total 2129.874 1037.447 146 Output Total 2304 160 70 Balance -174.126 877.447 76 Weight 83.4 kg Intake: IV 2088 896 146 .9 NS 110 40 Cefepime 2 gm In Sodium 100 Chloride 0.9% 100 ml @ 25 mls/hr IVPB ONCE STA Rx# :[id number] DAPTOmycin 500 mg In 50 Sodium Chloride 0.9% 50 ml @ 100 mls/hr IVPB Q48H [facility] Rx#:[id number] Dextrose 5% in Water 1, 820 600 100 000 ml @ 50 mls/hr IV . Q23H [facility] with Sodium Bicarb (1 Meq/ml) 150 ml Rx#:[id number] Pressure Bag 18 36 6 Sodium Chloride 0.9% 1, 1000 000 ml @ 999 mls/hr IV . Q1H1M ONE Rx#:[id number] Vancomycin 1,500 mg In 250 Sodium Chloride 0.9% 250 ml @ 125 mls/hr IVPB ONCE STA Rx#:[id number] Intake, IV Titration 41.874 141.447 Amount Norepinephrine 4 mg In 41.874 141.447 Sodium Chloride 0.9% 250 ml @ 0.05 MCG/KG/MIN 14. 973 mls/hr IV .[id number] [facility] Rx#:[id number] Output: Urine 104 160 70 Hemodialysis 2200 Other: Voiding Method Indwelling Catheter Indwelling Catheter ABP, PAP, CO, CI - Last Documented Arterial Blood Pressure 140/47 - Constitutional General appearance: Present: cooperative, mild distress, obese - Respiratory Details: Lungs sounds diminished in the bases bilaterally with faint expiratory wheezes heard anteriorly. Respirations slightly tachypneic. Currently on 15 liters h igh flow with oxygen saturations in the low 90s. No clubbing or cyanosis present. - Cardiovascular Details: S1, S2 present. Regular rate and rhythm, sinus rhythm with heart rate in the 80s, did have a burst of afib this morning w/ rate in the 120-160s. Sternum stable. Palpable peripheral pulses bilaterally. Trace generalized edema present. No calf pain or tenderness noted. Heart hugger in place. Antiembolism stockings, SCDs present. Right femoral triple-lumen central line and left radial arterial line placed by Dr. Hunter. - Gastrointestinal Gastrointestinal Comment(s): Abdomen soft, nontender, nondistended. Very hypoactive bowel sounds present 4 quadrants. - Genitourinary Genitourinary Comment(s): Yu present draining minimal yellow urine, 10-20 mL/hr with a couple of hours with output of 40-50 mL. Right groin temporary dialysis catheter present - Integumentary Integumentary Comment(s): Anterior chest incision opened in the midportion approximated 2 cm, draining blood tinged yellow fluid, packed and covered with 4x4. Left lower extremity EVH site well approximated without redness or drainage, bruising present - Neurologic Neurologic: Present: CNII-XII intact - Musculoskeletal Musculoskeletal: Present: strength equal bilaterally - Psychiatric Psychiatric Comment(s): Alert and oriented to person and place, doesn't know year. Follows commands, moves all extremities - Allied health notes Allied health notes reviewed: nursing - Labs CBC & Chem 7: 08/25/20 04:00 08/25/20 04:00 Labs: Abnormal Lab Results - Last 24 Hours (Table) 08/23/20 08/24/20 08/24/20 Range/Units 00:16 05:32 11:15 WBC (3.8-10.6) k/uL RBC (3.80-5.40) m/uL Hgb (11.4-16.0) gm/dL Hct (34.0-46.0) % MCHC (31.0-37.0) g/dL Neutrophils # (Manual) (1.3-7.7) k/uL Metamyelocytes # (Man) (0) k/uL Myelocytes # (Manual) (0) k/uL ESR (0-20) mm/hr ABG pH (7.35-7.45) ABG pO2 (83-108) mmHg ABG HCO3 (21-25) mmol/L ABG Total CO2 (19-24) mmol/L ABG O2 Saturation (94-97) % Sodium (137-145) mmol/L Potassium 5.5 H (3.5-5.1) mmol/L Chloride (98-107) mmol/L BUN (7-17) mg/dL Creatinine (0.52-1.04) mg/dL Glucose (74-99) mg/dL POC Glucose (mg/dL) (75-99) mg/dL Plasma Lactic Acid Garrett (0.7-2.0) mmol/L Calcium (8.4-10.2) mg/dL Total Bilirubin (0.2-1.3) mg/dL AST (14-36) U/L ALT (4-34) U/L Alkaline Phosphatase (38-126) U/L C-Reactive Protein (<10.0) mg/L Total Protein (6.3-8.2) g/dL Albumin (3.5-5.0) g/dL Procalcitonin 16.57 H (0.02-0.09) ng/mL Crossmatch See Detail 08/24/20 08/24/20 08/24/20 Range/Units 11:48 11:51 15:33 WBC (3.8-10.6) k/uL RBC (3.80-5.40) m/uL Hgb (11.4-16.0) gm/dL Hct (34.0-46.0) % MCHC (31.0-37.0) g/dL Neutrophils # (Manual) (1.3-7.7) k/uL Metamyelocytes # (Man) (0) k/uL Myelocytes # (Manual) (0) k/uL ESR (0-20) mm/hr ABG pH (7.35-7.45) ABG pO2 (83-108) mmHg ABG HCO3 (21-25) mmol/L ABG Total CO2 26 H (19-24) mmol/L ABG O2 Saturation 98.0 H (94-97) % Sodium (137-145) mmol/L Potassium (3.5-5.1) mmol/L Chloride (98-107) mmol/L BUN (7-17) mg/dL Creatinine (0.52-1.04) mg/dL Glucose (74-99) mg/dL POC Glucose (mg/dL) 159 H (75-99) mg/dL Plasma Lactic Acid Garrett 5.6 H* (0.7-2.0) mmol/L Calcium (8.4-10.2) mg/dL Total Bilirubin (0.2-1.3) mg/dL AST (14-36) U/L ALT (4-34) U/L Alkaline Phosphatase (38-126) U/L C-Reactive Protein (<10.0) mg/L Total Protein (6.3-8.2) g/dL Albumin (3.5-5.0) g/dL Procalcitonin (0.02-0.09) ng/mL Crossmatch 08/24/20 08/24/20 08/24/20 Range/Units 17:36 17:39 18:00 WBC (3.8-10.6) k/uL RBC (3.80-5.40) m/uL Hgb (11.4-16.0) gm/dL Hct (34.0-46.0) % MCHC (31.0-37.0) g/dL Neutrophils # (Manual) (1.3-7.7) k/uL Metamyelocytes # (Man) (0) k/uL Myelocytes # (Manual) (0) k/uL ESR (0-20) mm/hr ABG pH (7.35-7.45) ABG pO2 (83-108) mmHg ABG HCO3 (21-25) mmol/L ABG Total CO2 (19-24) mmol/L ABG O2 Saturation (94-97) % Sodium 135 L (137-145) mmol/L Potassium (3.5-5.1) mmol/L Chloride 97 L (98-107) mmol/L BUN 34 H (7-17) mg/dL Creatinine 2.80 H (0.52-1.04) mg/dL Glucose 120 H (74-99) mg/dL POC Glucose (mg/dL) 131 H (75-99) mg/dL Plasma Lactic Acid Garrett 3.6 H* (0.7-2.0) mmol/L Calcium 7.1 L (8.4-10.2) mg/dL Total Bilirubin (0.2-1.3) mg/dL AST (14-36) U/L ALT (4-34) U/L Alkaline Phosphatase (38-126) U/L C-Reactive Protein (<10.0) mg/L Total Protein (6.3-8.2) g/dL Albumin (3.5-5.0) g/dL Procalcitonin (0.02-0.09) ng/mL Crossmatch 08/24/20 08/24/20 08/25/20 Range/Units 22:10 23:49 04:00 WBC 14.3 H (3.8-10.6) k/uL RBC 2.25 L (3.80-5.40) m/uL Hgb 6.5 L* (11.4-16.0) gm/dL Hct 20.9 L (34.0-46.0) % MCHC 30.9 L (31.0-37.0) g/dL Neutrophils # (Manual) 11.80 H (1.3-7.7) k/uL Metamyelocytes # (Man) 0.14 H (0) k/uL Myelocytes # (Manual) 0.29 H (0) k/uL ESR (0-20) mm/hr ABG pH (7.35-7.45) ABG pO2 (83-108) mmHg ABG HCO3 (21-25) mmol/L ABG Total CO2 (19-24) mmol/L ABG O2 Saturation (94-97) % Sodium (137-145) mmol/L Potassium (3.5-5.1) mmol/L Chloride (98-107) mmol/L BUN (7-17) mg/dL Creatinine (0.52-1.04) mg/dL Glucose (74-99) mg/dL POC Glucose (mg/dL) 124 H (75-99) mg/dL Plasma Lactic Acid Garrett 4.0 H* (0.7-2.0) mmol/L Calcium (8.4-10.2) mg/dL Total Bilirubin (0.2-1.3) mg/dL AST (14-36) U/L ALT (4-34) U/L Alkaline Phosphatase (38-126) U/L C-Reactive Protein (<10.0) mg/L Total Protein (6.3-8.2) g/dL Albumin (3.5-5.0) g/dL Procalcitonin (0.02-0.09) ng/mL Crossmatch 08/25/20 08/25/20 08/25/20 Range/Units 04:00 04:00 04:00 WBC (3.8-10.6) k/uL RBC (3.80-5.40) m/uL Hgb (11.4-16.0) gm/dL Hct (34.0-46.0) % MCHC (31.0-37.0) g/dL Neutrophils # (Manual) (1.3-7.7) k/uL Metamyelocytes # (Man) (0) k/uL Myelocytes # (Manual) (0) k/uL ESR 28 H (0-20) mm/hr ABG pH (7.35-7.45) ABG pO2 (83-108) mmHg ABG HCO3 (21-25) mmol/L ABG Total CO2 (19-24) mmol/L ABG O2 Saturation (94-97) % Sodium 136 L (137-145) mmol/L Potassium (3.5-5.1) mmol/L Chloride 96 L (98-107) mmol/L BUN 43 H (7-17) mg/dL Creatinine 2.79 H (0.52-1.04) mg/dL Glucose 113 H (74-99) mg/dL POC Glucose (mg/dL) (75-99) mg/dL Plasma Lactic Acid Garrett (0.7-2.0) mmol/L Calcium 7.0 L (8.4-10.2) mg/dL Total Bilirubin 3.4 H (0.2-1.3) mg/dL AST 2874 H (14-36) U/L ALT 1469 H (4-34) U/L Alkaline Phosphatase 192 H (38-126) U/L C-Reactive Protein 356.2 H (<10.0) mg/L Total Protein 5.1 L (6.3-8.2) g/dL Albumin 2.8 L (3.5-5.0) g/dL Procalcitonin (0.02-0.09) ng/mL Crossmatch 08/25/20 08/25/20 08/25/20 Range/Units 04:00 07:10 09:42 WBC (3.8-10.6) k/uL RBC (3.80-5.40) m/uL Hgb (11.4-16.0) gm/dL Hct (34.0-46.0) % MCHC (31.0-37.0) g/dL Neutrophils # (Manual) (1.3-7.7) k/uL Metamyelocytes # (Man) (0) k/uL Myelocytes # (Manual) (0) k/uL ESR (0-20) mm/hr ABG pH 7.47 H (7.35-7.45) ABG pO2 74 L (83-108) mmHg ABG HCO3 29 H (21-25) mmol/L ABG Total CO2 31 H (19-24) mmol/L ABG O2 Saturation (94-97) % Sodium (137-145) mmol/L Potassium (3.5-5.1) mmol/L Chloride (98-107) mmol/L BUN (7-17) mg/dL Creatinine (0.52-1.04) mg/dL Glucose (74-99) mg/dL POC Glucose (mg/dL) (75-99) mg/dL Plasma Lactic Acid Garrett 3.9 H* 2.9 H* (0.7-2.0) mmol/L Calcium (8.4-10.2) mg/dL Total Bilirubin (0.2-1.3) mg/dL AST (14-36) U/L ALT (4-34) U/L Alkaline Phosphatase (38-126) U/L C-Reactive Protein (<10.0) mg/L Total Protein (6.3-8.2) g/dL Albumin (3.5-5.0) g/dL Procalcitonin (0.02-0.09) ng/mL Crossmatch Microbiology - Last 24 Hours (Table) 08/24/20 05:45 Gram Stain - Preliminary Chest Wound Culture - Preliminary Presumptive Staph aureus 08/24/20 05:32 Blood Culture Gram Stain - Preliminary Blood 08/24/20 05:40 Blood Culture Gram Stain - Preliminary Blood 08/24/20 05:32 Blood Culture - Final Blood 08/24/20 05:40 Blood Culture - Final Blood 08/24/20 05:00 Urine Culture - Preliminary Urine,Voided 08/24/20 05:45 Anaerobic Culture - Preliminary Chest - Imaging and Cardiology Chest x-ray: report reviewed, image reviewed Assessment and Plan Assessment: 1. Shortness of breath, likely acute diastolic heart failure, EF 55-60% on current TTE, bilateral pleural effusions 2. Lactic acidosis, sepsis 3. Hypercapnic respiratory failure requiring BiPAP 4. Acute kidney injury 5. Acute hyperkalemia 6. Acute transaminitis 7. Hypotension requiring vasopressors 8. Coronary artery disease with left main stenosis status post 2 vessel CABG on 08/10/2020 with expected postoperative acute blood loss anemia, hypotension, and urinary retention as well as candidal stomatititus 9. Hyponatremia 10. Pulmonary fibrosis, asthma 11. History of hypertension 12. Hyperlipidemia, treated 13. Previous tobacco dependence 14. Obesity 15. Osteoarthritis 16. Cervical stenosis post anterior cervical disc decompression, discectomy and fusion 17. TIA as a child 18. Family history of premature coronary artery disease 19. Paroxysmal afib w/ RVR Plan: 1. BiPAP management per pulmonary medicine 2. Nephrology consulted, appreciate recommendations, avoid nephrotoxins, HD per nephro 3. Infectious disease consulted, appreciate recommendations, final blood cultur es/urine culture/sternal wound cultures pending, continue antibiotics 4. Continue aspirin, statin, Plavix. Restart beta sisi at low dose. Avoid amio 2/2 transaminitis. Keep SBP 120-140 for perfusion of organs 5. Will monitor daily labs and x-rays, ABGs. Transfuse 1 unit PRBCs 6. Continue sternal precautions 7. GI/DVT prophylaxis 8. Continue sternal dressing change w/ packing daily and PRN 9. Reorient PRN. Seroquel added for anxiety 10. Will update family daily 11. More recommendations to follow Time with Patient: Greater than 30
--- NOTE | 2020-08-25 11:26 | P.PN ---
Subjective Patient is seen in follow for acute kidney injury and hyperkalemia. Started on hemodialysis August 24. Tolerated 2-1/2 L ultrafiltration yesterday. Tolerating today's treatment well. Urine output 10-30 mL an hour. Potassium level normal. Acidosis resolved. Not on any vasopressors. Vital signs are stable. General: The patient appeared well nourished and normally developed. HEENT: Head exam is unremarkable. On nasal cannula. LUNGS: Breath sounds decreased. HEART: Rate and Rhythm are regular. ABDOMEN: Soft, nontender. EXTREMITITES: Trace edema. Objective - Vital Signs Vital signs: Vital Signs Temp 98.4 F 08/25/20 10:49 Pulse 105 H 08/25/20 10:49 Resp 28 H 08/25/20 10:49 BP 150/47 08/25/20 10:49 Pulse Ox 95 08/25/20 10:39 Intake & Output 08/24/20 08/25/20 08/25/20 18:59 06:59 18:59 Intake Total 2129.874 1037.447 289 Output Total 2304 160 100 Balance -174.126 877.447 189 Weight 83.4 kg Intake: IV 2088 896 289 .9 NS 110 80 Cefepime 2 gm In Sodium 100 Chloride 0.9% 100 ml @ 25 mls/hr IVPB ONCE STA Rx# :[id number] DAPTOmycin 500 mg In 50 Sodium Chloride 0.9% 50 ml @ 100 mls/hr IVPB Q48H [facility] Rx#:[id number] Dextrose 5% in Water 1, 820 600 200 000 ml @ 50 mls/hr IV . Q23H [facility] with Sodium Bicarb (1 Meq/ml) 150 ml Rx#:[id number] Pressure Bag 18 36 9 Sodium Chloride 0.9% 1, 1000 000 ml @ 999 mls/hr IV . Q1H1M ONE Rx#:[id number] Vancomycin 1,500 mg In 250 Sodium Chloride 0.9% 250 ml @ 125 mls/hr IVPB ONCE STA Rx#:[id number] Intake, IV Titration 41.874 141.447 Amount Norepinephrine 4 mg In 41.874 141.447 Sodium Chloride 0.9% 250 ml @ 0.05 MCG/KG/MIN 14. 973 mls/hr IV .[id number] [facility] Rx#:[id number] Blood Product 0 Rc Pheresis 2 As3 Unit 0 [id number] Output: Urine 104 160 100 Hemodialysis 2200 Other: Voiding Method Indwelling Catheter Indwelling Catheter Indwelling Catheter ABP, PAP, CO, CI - Last Documented Arterial Blood Pressure 161/48 - Labs CBC & Chem 7: 08/25/20 04:00 08/25/20 04:00 Labs: Abnormal Lab Results - Last 24 Hours (Table) 08/23/20 08/24/20 08/24/20 Range/Units 00:16 05:32 11:15 WBC (3.8-10.6) k/uL RBC (3.80-5.40) m/uL Hgb (11.4-16.0) gm/dL Hct (34.0-46.0) % MCHC (31.0-37.0) g/dL Neutrophils # (Manual) (1.3-7.7) k/uL Metamyelocytes # (Man) (0) k/uL Myelocytes # (Manual) (0) k/uL ESR (0-20) mm/hr ABG pH (7.35-7.45) ABG pO2 (83-108) mmHg ABG HCO3 (21-25) mmol/L ABG Total CO2 (19-24) mmol/L ABG O2 Saturation (94-97) % Sodium (137-145) mmol/L Potassium 5.5 H (3.5-5.1) mmol/L Chloride (98-107) mmol/L BUN (7-17) mg/dL Creatinine (0.52-1.04) mg/dL Glucose (74-99) mg/dL POC Glucose (mg/dL) (75-99) mg/dL Plasma Lactic Acid Garrett (0.7-2.0) mmol/L Calcium (8.4-10.2) mg/dL Total Bilirubin (0.2-1.3) mg/dL AST (14-36) U/L ALT (4-34) U/L Alkaline Phosphatase (38-126) U/L C-Reactive Protein (<10.0) mg/L Total Protein (6.3-8.2) g/dL Albumin (3.5-5.0) g/dL Procalcitonin 16.57 H (0.02-0.09) ng/mL Crossmatch See Detail 08/24/20 08/24/20 08/24/20 Range/Units 11:48 11:51 15:33 WBC (3.8-10.6) k/uL RBC (3.80-5.40) m/uL Hgb (11.4-16.0) gm/dL Hct (34.0-46.0) % MCHC (31.0-37.0) g/dL Neutrophils # (Manual) (1.3-7.7) k/uL Metamyelocytes # (Man) (0) k/uL Myelocytes # (Manual) (0) k/uL ESR (0-20) mm/hr ABG pH (7.35-7.45) ABG pO2 (83-108) mmHg ABG HCO3 (21-25) mmol/L ABG Total CO2 26 H (19-24) mmol/L ABG O2 Saturation 98.0 H (94-97) % Sodium (137-145) mmol/L Potassium (3.5-5.1) mmol/L Chloride (98-107) mmol/L BUN (7-17) mg/dL Creatinine (0.52-1.04) mg/dL Glucose (74-99) mg/dL POC Glucose (mg/dL) 159 H (75-99) mg/dL Plasma Lactic Acid Garrett 5.6 H* (0.7-2.0) mmol/L Calcium (8.4-10.2) mg/dL Total Bilirubin (0.2-1.3) mg/dL AST (14-36) U/L ALT (4-34) U/L Alkaline Phosphatase (38-126) U/L C-Reactive Protein (<10.0) mg/L Total Protein (6.3-8.2) g/dL Albumin (3.5-5.0) g/dL Procalcitonin (0.02-0.09) ng/mL Crossmatch 08/24/20 08/24/20 08/24/20 Range/Units 17:36 17:39 18:00 WBC (3.8-10.6) k/uL RBC (3.80-5.40) m/uL Hgb (11.4-16.0) gm/dL Hct (34.0-46.0) % MCHC (31.0-37.0) g/dL Neutrophils # (Manual) (1.3-7.7) k/uL Metamyelocytes # (Man) (0) k/uL Myelocytes # (Manual) (0) k/uL ESR (0-20) mm/hr ABG pH (7.35-7.45) ABG pO2 (83-108) mmHg ABG HCO3 (21-25) mmol/L ABG Total CO2 (19-24) mmol/L ABG O2 Saturation (94-97) % Sodium 135 L (137-145) mmol/L Potassium (3.5-5.1) mmol/L Chloride 97 L (98-107) mmol/L BUN 34 H (7-17) mg/dL Creatinine 2.80 H (0.52-1.04) mg/dL Glucose 120 H (74-99) mg/dL POC Glucose (mg/dL) 131 H (75-99) mg/dL Plasma Lactic Acid Garrett 3.6 H* (0.7-2.0) mmol/L Calcium 7.1 L (8.4-10.2) mg/dL Total Bilirubin (0.2-1.3) mg/dL AST (14-36) U/L ALT (4-34) U/L Alkaline Phosphatase (38-126) U/L C-Reactive Protein (<10.0) mg/L Total Protein (6.3-8.2) g/dL Albumin (3.5-5.0) g/dL Procalcitonin (0.02-0.09) ng/mL Crossmatch 08/24/20 08/24/20 08/25/20 Range/Units 22:10 23:49 04:00 WBC 14.3 H (3.8-10.6) k/uL RBC 2.25 L (3.80-5.40) m/uL Hgb 6.5 L* (11.4-16.0) gm/dL Hct 20.9 L (34.0-46.0) % MCHC 30.9 L (31.0-37.0) g/dL Neutrophils # (Manual) 11.80 H (1.3-7.7) k/uL Metamyelocytes # (Man) 0.14 H (0) k/uL Myelocytes # (Manual) 0.29 H (0) k/uL ESR (0-20) mm/hr ABG pH (7.35-7.45) ABG pO2 (83-108) mmHg ABG HCO3 (21-25) mmol/L ABG Total CO2 (19-24) mmol/L ABG O2 Saturation (94-97) % Sodium (137-145) mmol/L Potassium (3.5-5.1) mmol/L Chloride (98-107) mmol/L BUN (7-17) mg/dL Creatinine (0.52-1.04) mg/dL Glucose (74-99) mg/dL POC Glucose (mg/dL) 124 H (75-99) mg/dL Plasma Lactic Acid Garrett 4.0 H* (0.7-2.0) mmol/L Calcium (8.4-10.2) mg/dL Total Bilirubin (0.2-1.3) mg/dL AST (14-36) U/L ALT (4-34) U/L Alkaline Phosphatase (38-126) U/L C-Reactive Protein (<10.0) mg/L Total Protein (6.3-8.2) g/dL Albumin (3.5-5.0) g/dL Procalcitonin (0.02-0.09) ng/mL Crossmatch 08/25/20 08/25/20 08/25/20 Range/Units 04:00 04:00 04:00 WBC (3.8-10.6) k/uL RBC (3.80-5.40) m/uL Hgb (11.4-16.0) gm/dL Hct (34.0-46.0) % MCHC (31.0-37.0) g/dL Neutrophils # (Manual) (1.3-7.7) k/uL Metamyelocytes # (Man) (0) k/uL Myelocytes # (Manual) (0) k/uL ESR 28 H (0-20) mm/hr ABG pH (7.35-7.45) ABG pO2 (83-108) mmHg ABG HCO3 (21-25) mmol/L ABG Total CO2 (19-24) mmol/L ABG O2 Saturation (94-97) % Sodium 136 L (137-145) mmol/L Potassium (3.5-5.1) mmol/L Chloride 96 L (98-107) mmol/L BUN 43 H (7-17) mg/dL Creatinine 2.79 H (0.52-1.04) mg/dL Glucose 113 H (74-99) mg/dL POC Glucose (mg/dL) (75-99) mg/dL Plasma Lactic Acid Garrett (0.7-2.0) mmol/L Calcium 7.0 L (8.4-10.2) mg/dL Total Bilirubin 3.4 H (0.2-1.3) mg/dL AST 2874 H (14-36) U/L ALT 1469 H (4-34) U/L Alkaline Phosphatase 192 H (38-126) U/L C-Reactive Protein 356.2 H (<10.0) mg/L Total Protein 5.1 L (6.3-8.2) g/dL Albumin 2.8 L (3.5-5.0) g/dL Procalcitonin (0.02-0.09) ng/mL Crossmatch 08/25/20 08/25/20 08/25/20 Range/Units 04:00 07:10 09:42 WBC (3.8-10.6) k/uL RBC (3.80-5.40) m/uL Hgb (11.4-16.0) gm/dL Hct (34.0-46.0) % MCHC (31.0-37.0) g/dL Neutrophils # (Manual) (1.3-7.7) k/uL Metamyelocytes # (Man) (0) k/uL Myelocytes # (Manual) (0) k/uL ESR (0-20) mm/hr ABG pH 7.47 H (7.35-7.45) ABG pO2 74 L (83-108) mmHg ABG HCO3 29 H (21-25) mmol/L ABG Total CO2 31 H (19-24) mmol/L ABG O2 Saturation (94-97) % Sodium (137-145) mmol/L Potassium (3.5-5.1) mmol/L Chloride (98-107) mmol/L BUN (7-17) mg/dL Creatinine (0.52-1.04) mg/dL Glucose (74-99) mg/dL POC Glucose (mg/dL) (75-99) mg/dL Plasma Lactic Acid Garrett 3.9 H* 2.9 H* (0.7-2.0) mmol/L Calcium (8.4-10.2) mg/dL Total Bilirubin (0.2-1.3) mg/dL AST (14-36) U/L ALT (4-34) U/L Alkaline Phosphatase (38-126) U/L C-Reactive Protein (<10.0) mg/L Total Protein (6.3-8.2) g/dL Albumin (3.5-5.0) g/dL Procalcitonin (0.02-0.09) ng/mL Crossmatch 08/25/20 Range/Units 09:52 WBC (3.8-10.6) k/uL RBC (3.80-5.40) m/uL Hgb (11.4-16.0) gm/dL Hct (34.0-46.0) % MCHC (31.0-37.0) g/dL Neutrophils # (Manual) (1.3-7.7) k/uL Metamyelocytes # (Man) (0) k/uL Myelocytes # (Manual) (0) k/uL ESR (0-20) mm/hr ABG pH (7.35-7.45) ABG pO2 (83-108) mmHg ABG HCO3 (21-25) mmol/L ABG Total CO2 (19-24) mmol/L ABG O2 Saturation (94-97) % Sodium (137-145) mmol/L Potassium (3.5-5.1) mmol/L Chloride (98-107) mmol/L BUN (7-17) mg/dL Creatinine (0.52-1.04) mg/dL Glucose (74-99) mg/dL POC Glucose (mg/dL) (75-99) mg/dL Plasma Lactic Acid Garrett 2.9 H* (0.7-2.0) mmol/L Calcium (8.4-10.2) mg/dL Total Bilirubin (0.2-1.3) mg/dL AST (14-36) U/L ALT (4-34) U/L Alkaline Phosphatase (38-126) U/L C-Reactive Protein (<10.0) mg/L Total Protein (6.3-8.2) g/dL Albumin (3.5-5.0) g/dL Procalcitonin (0.02-0.09) ng/mL Crossmatch Microbiology - Last 24 Hours (Table) 08/24/20 05:32 Blood Culture Gram Stain - Preliminary Blood Blood Culture - Preliminary Presumptive Staph aureus 08/24/20 05:40 Blood Culture Gram Stain - Preliminary Blood Blood Culture - Preliminary Presumptive Staph aureus 08/24/20 05:45 Gram Stain - Preliminary Chest Wound Culture - Preliminary Presumptive Staph aureus 08/24/20 05:32 Blood Culture - Final Blood 08/24/20 05:40 Blood Culture - Final Blood 08/24/20 05:00 Urine Culture - Preliminary Urine,Voided 08/24/20 05:45 Anaerobic Culture - Preliminary Chest Assessment and Plan Plan: Assessment: 1. Acute kidney injury secondary to ATN secondary to hypotension and cardiorenal syndrome. Baseline creatinine near 1 from earlier this month and peaked at 3.15 this admission. Started on hemodialysis August 24. 2. Hyperkalemia secondary to potassium supplementation, losartan, acute kidney injury as well as severe acidosis. Improved postdialysis. 3. Metabolic acidosis secondary to acute kidney injury. Status post bicarb drip. Resolved. 4. Hypervolemic hyponatremia. Improved with ultrafiltration. 5. Wound dehiscence of the sternum. On antibiotics. CTS is following. Wound culture positive for staph aureus. Blood culture also positive for staph aureus. 6. Acute hypoxia respiratory failure. 7. Status post CABG in 08/10/2020. 8. Volume overload. Improving with ultrafiltration. 9. Acute blood loss anemia currently receiving a unit of blood. Plan: Status post IV Lasix yesterday. Currently seen while undergoing hemodialysis. Plan for third treatment of hemodialysis tomorrow. Off IV fluids. Continue to monitor renal function and urine output. Wean FiO2. Add Aranesp. I will also give her a dose of DDAVP. Check phosphorus level.
[2020-08-25] MEDS: SODIUM CHLORIDE 0.9% 1,000 ML IV SCH (11:52)
[2020-08-25] MEDS: DRY MOUTH SPRAY 44.3 SPRAY/44.3 ML SPRAY MUCOUS MEM SCH ×4 (11:57→21:52)
[2020-08-25] MEDS: PANTOPRAZOLE 40 MG/10 ML VIAL IVP SCH (11:57)
[2020-08-25] MEDS: ASPIRIN 325 MG TAB PO SCH (11:57)
[2020-08-25] MEDS: CLOPIDOGREL 75 MG TAB PO SCH (11:57)
[2020-08-25] MEDS: MIDODRINE 5 MG TAB PO SCH ×3 (11:57→23:37)
[2020-08-25] MEDS: DARBEPOETIN ALFA 40 MCG/0.4 ML SYRINGE SQ SCH (11:58)
[2020-08-25] MEDS: ASCORBIC ACID 500 MG TAB PO SCH (11:58)
[2020-08-25] MEDS: FERROUS SULFATE 325 MG TAB PO SCH (11:58)
[2020-08-25] MEDS: LIDOCAINE 5% PATCH TOPICAL SCH (11:58)
[2020-08-25] MEDS: QUEtiapine 25 MG TAB PO SCH ×2 (11:58→20:26)
[2020-08-25] MEDS ORDERED: DESMOPRESSIN ACETATE 14 MCG in SODIUM CHLORIDE 0.9% 50 ML IVPB ONE (12:00)
[2020-08-25] MEDS ORDERED: METOPROLOL TARTRATE 5 MG/5 ML VIAL IVP SCH (12:00)
[2020-08-25 12:33] LABS: Glucose,Whole Blood 81 mg/dL (75-99)
--- NOTE | 2020-08-25 13:39 | P.PN ---
Subjective Progress Note Date: 08/25/20 Principal diagnosis: Acute hypoxic and hypercapnic respiratory failure secondary to sepsis and septic shock. This is a 75-year-old female with history of coronary artery disease, had recent left main stenosis and she underwent two-vessel CABG with HOLLAND to LAD, and saphenous vein graft to obtuse marginal on 08/10/2020. Patient was seen by us postoperatively on consultation, and she was eventually discharged. Her other medical problems include history of hyponatremia, pulmonary fibrosis, hypertension, dyslipidemia, [id number] smoking history, cervical stenosis and previous surgical disc disease, history of decompression and fusion. Patient was brought into the ER on 08/22/2020, and she was complaining of shortness of breath, patient was hypoxic and she was noted to have O2 saturation in the 80s. Chest x-ray showed evidence of pulmonary edema with bilateral pleural effusions, and patient was treated mostly with diuretics. However over the last 2 days, patient deteriorated, shortness of breath became worse, and today the patient was extremely dyspneic, chest x-ray was getting worse, patient was hypotensive, required fluid boluses, and I was notified about this patient early this morning, advised immediate transfer to the ICU, patient was placed on BiPAP, patient was also seen by nephrology, and her urine output is extremely poor, patient received fluid boluses for hypotension, in the meantime the patient was noted to have significant purulent drainage from her sternal incision site, and she clearly has wound dehiscence and sternal wound infection. Recommended broad-spectrum antibiotics on this patient, started on vancomycin and cefepime, patient was seen by infectious disease on consultation, she was also seen by nephrology planning hemodialysis, and vascular surgery saw the patient and placed a dialysis catheter. In the meantime patient was placed on BiPAP, she received fluids and pressors. I placed a central line in this patient an arterial line. Chest x-ray clearly shows evidence of bilateral interstitial edema. Patient was reevaluated today on 08/25/2020, remains in the ICU, she was on BiPAP earlier today, presently on high flow nasal cannula at 15 L/m. Yesterday she was on BiPAP 12/6 and 60% FiO2 this was overnight. Patient is off pressors, and this morning I stopped her sodium bicarb based on her ABG and based on her bicarb level as well as her electrolytes. Patient is getting hemodialysis again today, she had 2.2 L removed yesterday, and she would likely have the same this morning. Patient is awake, and bit dyspneic, anxious, agitated, chest x-ray continues to show evidence of pulmonary edema. Her sternal wound dehiscence seems to be significant, continues to have some purulent drainage, and that is being addressed by thoracic surgery on the case. Cultures from the sternal wound came back positive for gram-positive cocci in clusters, seen by infectious disease and she was transitioned to daptomycin instead of vancomycin. Hemoglobin is noted to be a bit low today, and I have ordered 1 unit of packed RBCs to be given. IV fluid is at 1 50 mL/h. Sodium bicarb is discontinued. Calcium gluconate was given for low calcium today. ABG showed a pO2 of 74 pCO2 of 40 pH of 7.47 and this was on a 15 L high flow nasal cannula. Hemoglobin is 6.5, and she will receive a unit of packed RBCs today. Electrolytes are normal BUN is 43 creatinine 2.79 Objective - Vital Signs Vital signs: Vital Signs Temp 97.7 F 08/25/20 12:00 Pulse 112 H 08/25/20 12:45 Resp 33 H 08/25/20 12:45 BP 167/53 08/25/20 11:58 Pulse Ox 99 08/25/20 12:45 Intake & Output 08/24/20 08/25/20 08/25/20 18:59 06:59 18:59 Intake Total 2129.874 1032.422 1971 Output Total 2304 160 2170 Balance -174.126 877.447 -1045 Weight 83.4 kg Intake: IV 2088 896 555 .9 NS 110 90 Calcium Gluconate 1 gm In 100 Sodium Chloride 0.9% 100 ml @ 100 mls/hr IVPB ONCE ONE Rx#:[id number] Cefepime 2 gm In Sodium 100 Chloride 0.9% 100 ml @ 25 mls/hr IVPB ONCE STA Rx# :[id number] DAPTOmycin 500 mg In 50 Sodium Chloride 0.9% 50 ml @ 100 mls/hr IVPB Q48H [facility] Rx#:[id number] Desmopressin Acetate 14 50 mcg In Sodium Chloride 0. 9% 50 ml @ 200 mls/hr IVPB ONCE ONE Rx#: [id number] Dextrose 5% in Water 1, 820 600 200 000 ml @ 50 mls/hr IV . Q23H [facility] with Sodium Bicarb (1 Meq/ml) 150 ml Rx#:[id number] Pressure Bag 18 36 15 Sodium Chloride 0.9% 1, 100 000 ml @ 50 mls/hr IV . Q20H [facility] Rx#:[id number] Sodium Chloride 0.9% 1, 1000 000 ml @ 999 mls/hr IV . Q1H1M ONE Rx#:[id number] Vancomycin 1,500 mg In 250 Sodium Chloride 0.9% 250 ml @ 125 mls/hr IVPB ONCE STA Rx#:[id number] Intake, IV Titration 41.874 141.447 Amount Norepinephrine 4 mg In 41.874 141.447 Sodium Chloride 0.9% 250 ml @ 0.05 MCG/KG/MIN 14. 973 mls/hr IV .[id number] [facility] Rx#:[id number] Blood Product 570 Rc Pheresis 2 As3 Unit 285 [id number] Output: Urine 104 160 170 Hemodialysis 2200 2000 Other: Voiding Method Indwelling Catheter Indwelling Catheter Indwelling Catheter ABP, PAP, CO, CI - Last Documented Arterial Blood Pressure 114/38 - Exam PHYSICAL EXAMINATION: Revealed a 75-year-old female, obese, on high flow nasal cannula, in mild distress tient has BiPAP, PERRLA, EOMI, nonictericMoist mucous membranes CHEST EXAMINATION: Symmetrical chest expansion, crackles or rhonchi and wheezes noted bilaterally. Surgical sternal incision seems to be open, purulent drainage noted from the lower aspect of the sternum. HEART EXAMINATION Tachycardic, normal S1 and S2, 2/6 systolic murmur throughout the precordium. ABDOMEN: Soft, nontender. Bowel sounds are heard. No organomegaly noted. EXTREMITIES:1+ peripheral pulses with evidence of mild peripheral edema and no calf tenderness noted. NEUROLOGIC EXAMINATION: Patient is awake, alert and oriented x3. Psychiatric: Normal mood affect and normal mental status examination. Skin: No rashes except for dehiscence and purulent drainage from the sternal surgical site. - Labs CBC & Chem 7: 08/25/20 04:00 08/25/20 04:00 Labs: Abnormal Lab Results - Last 24 Hours (Table) 08/23/20 08/24/20 08/24/20 Range/Units 00:16 05:32 15:33 WBC (3.8-10.6) k/uL RBC (3.80-5.40) m/uL Hgb (11.4-16.0) gm/dL Hct (34.0-46.0) % MCHC (31.0-37.0) g/dL Neutrophils # (Manual) (1.3-7.7) k/uL Metamyelocytes # (Man) (0) k/uL Myelocytes # (Manual) (0) k/uL ESR (0-20) mm/hr ABG pH (7.35-7.45) ABG pO2 (83-108) mmHg ABG HCO3 (21-25) mmol/L ABG Total CO2 26 H (19-24) mmol/L ABG O2 Saturation 98.0 H (94-97) % Sodium (137-145) mmol/L Chloride (98-107) mmol/L BUN (7-17) mg/dL Creatinine (0.52-1.04) mg/dL Glucose (74-99) mg/dL POC Glucose (mg/dL) (75-99) mg/dL Plasma Lactic Acid Garrett (0.7-2.0) mmol/L Calcium (8.4-10.2) mg/dL Total Bilirubin (0.2-1.3) mg/dL AST (14-36) U/L ALT (4-34) U/L Alkaline Phosphatase (38-126) U/L C-Reactive Protein (<10.0) mg/L Total Protein (6.3-8.2) g/dL Albumin (3.5-5.0) g/dL Procalcitonin 16.57 H (0.02-0.09) ng/mL Crossmatch See Detail 08/24/20 08/24/20 08/24/20 Range/Units 17:36 17:39 18:00 WBC (3.8-10.6) k/uL RBC (3.80-5.40) m/uL Hgb (11.4-16.0) gm/dL Hct (34.0-46.0) % MCHC (31.0-37.0) g/dL Neutrophils # (Manual) (1.3-7.7) k/uL Metamyelocytes # (Man) (0) k/uL Myelocytes # (Manual) (0) k/uL ESR (0-20) mm/hr ABG pH (7.35-7.45) ABG pO2 (83-108) mmHg ABG HCO3 (21-25) mmol/L ABG Total CO2 (19-24) mmol/L ABG O2 Saturation (94-97) % Sodium 135 L (137-145) mmol/L Chloride 97 L (98-107) mmol/L BUN 34 H (7-17) mg/dL Creatinine 2.80 H (0.52-1.04) mg/dL Glucose 120 H (74-99) mg/dL POC Glucose (mg/dL) 131 H (75-99) mg/dL Plasma Lactic Acid Garrett 3.6 H* (0.7-2.0) mmol/L Calcium 7.1 L (8.4-10.2) mg/dL Total Bilirubin (0.2-1.3) mg/dL AST (14-36) U/L ALT (4-34) U/L Alkaline Phosphatase (38-126) U/L C-Reactive Protein (<10.0) mg/L Total Protein (6.3-8.2) g/dL Albumin (3.5-5.0) g/dL Procalcitonin (0.02-0.09) ng/mL Crossmatch 08/24/20 08/24/20 08/25/20 Range/Units 22:10 23:49 04:00 WBC 14.3 H (3.8-10.6) k/uL RBC 2.25 L (3.80-5.40) m/uL Hgb 6.5 L* (11.4-16.0) gm/dL Hct 20.9 L (34.0-46.0) % MCHC 30.9 L (31.0-37.0) g/dL Neutrophils # (Manual) 11.80 H (1.3-7.7) k/uL Metamyelocytes # (Man) 0.14 H (0) k/uL Myelocytes # (Manual) 0.29 H (0) k/uL ESR (0-20) mm/hr ABG pH (7.35-7.45) ABG pO2 (83-108) mmHg ABG HCO3 (21-25) mmol/L ABG Total CO2 (19-24) mmol/L ABG O2 Saturation (94-97) % Sodium (137-145) mmol/L Chloride (98-107) mmol/L BUN (7-17) mg/dL Creatinine (0.52-1.04) mg/dL Glucose (74-99) mg/dL POC Glucose (mg/dL) 124 H (75-99) mg/dL Plasma Lactic Acid Garrett 4.0 H* (0.7-2.0) mmol/L Calcium (8.4-10.2) mg/dL Total Bilirubin (0.2-1.3) mg/dL AST (14-36) U/L ALT (4-34) U/L Alkaline Phosphatase (38-126) U/L C-Reactive Protein (<10.0) mg/L Total Protein (6.3-8.2) g/dL Albumin (3.5-5.0) g/dL Procalcitonin (0.02-0.09) ng/mL Crossmatch 08/25/20 08/25/20 08/25/20 Range/Units 04:00 04:00 04:00 WBC (3.8-10.6) k/uL RBC (3.80-5.40) m/uL Hgb (11.4-16.0) gm/dL Hct (34.0-46.0) % MCHC (31.0-37.0) g/dL Neutrophils # (Manual) (1.3-7.7) k/uL Metamyelocytes # (Man) (0) k/uL Myelocytes # (Manual) (0) k/uL ESR 28 H (0-20) mm/hr ABG pH (7.35-7.45) ABG pO2 (83-108) mmHg ABG HCO3 (21-25) mmol/L ABG Total CO2 (19-24) mmol/L ABG O2 Saturation (94-97) % Sodium 136 L (137-145) mmol/L Chloride 96 L (98-107) mmol/L BUN 43 H (7-17) mg/dL Creatinine 2.79 H (0.52-1.04) mg/dL Glucose 113 H (74-99) mg/dL POC Glucose (mg/dL) (75-99) mg/dL Plasma Lactic Acid Garrett (0.7-2.0) mmol/L Calcium 7.0 L (8.4-10.2) mg/dL Total Bilirubin 3.4 H (0.2-1.3) mg/dL AST 2874 H (14-36) U/L ALT 1469 H (4-34) U/L Alkaline Phosphatase 192 H (38-126) U/L C-Reactive Protein 356.2 H (<10.0) mg/L Total Protein 5.1 L (6.3-8.2) g/dL Albumin 2.8 L (3.5-5.0) g/dL Procalcitonin (0.02-0.09) ng/mL Crossmatch 08/25/20 08/25/20 08/25/20 Range/Units 04:00 07:10 09:42 WBC (3.8-10.6) k/uL RBC (3.80-5.40) m/uL Hgb (11.4-16.0) gm/dL Hct (34.0-46.0) % MCHC (31.0-37.0) g/dL Neutrophils # (Manual) (1.3-7.7) k/uL Metamyelocytes # (Man) (0) k/uL Myelocytes # (Manual) (0) k/uL ESR (0-20) mm/hr ABG pH 7.47 H (7.35-7.45) ABG pO2 74 L (83-108) mmHg ABG HCO3 29 H (21-25) mmol/L ABG Total CO2 31 H (19-24) mmol/L ABG O2 Saturation (94-97) % Sodium (137-145) mmol/L Chloride (98-107) mmol/L BUN (7-17) mg/dL Creatinine (0.52-1.04) mg/dL Glucose (74-99) mg/dL POC Glucose (mg/dL) (75-99) mg/dL Plasma Lactic Acid Garrett 3.9 H* 2.9 H* (0.7-2.0) mmol/L Calcium (8.4-10.2) mg/dL Total Bilirubin (0.2-1.3) mg/dL AST (14-36) U/L ALT (4-34) U/L Alkaline Phosphatase (38-126) U/L C-Reactive Protein (<10.0) mg/L Total Protein (6.3-8.2) g/dL Albumin (3.5-5.0) g/dL Procalcitonin (0.02-0.09) ng/mL Crossmatch 08/25/20 Range/Units 09:52 WBC (3.8-10.6) k/uL RBC (3.80-5.40) m/uL Hgb (11.4-16.0) gm/dL Hct (34.0-46.0) % MCHC (31.0-37.0) g/dL Neutrophils # (Manual) (1.3-7.7) k/uL Metamyelocytes # (Man) (0) k/uL Myelocytes # (Manual) (0) k/uL ESR (0-20) mm/hr ABG pH (7.35-7.45) ABG pO2 (83-108) mmHg ABG HCO3 (21-25) mmol/L ABG Total CO2 (19-24) mmol/L ABG O2 Saturation (94-97) % Sodium (137-145) mmol/L Chloride (98-107) mmol/L BUN (7-17) mg/dL Creatinine (0.52-1.04) mg/dL Glucose (74-99) mg/dL POC Glucose (mg/dL) (75-99) mg/dL Plasma Lactic Acid Garrett 2.9 H* (0.7-2.0) mmol/L Calcium (8.4-10.2) mg/dL Total Bilirubin (0.2-1.3) mg/dL AST (14-36) U/L ALT (4-34) U/L Alkaline Phosphatase (38-126) U/L C-Reactive Protein (<10.0) mg/L Total Protein (6.3-8.2) g/dL Albumin (3.5-5.0) g/dL Procalcitonin (0.02-0.09) ng/mL Crossmatch Microbiology - Last 24 Hours (Table) 08/24/20 05:00 Urine Culture - Final Urine,Voided 08/24/20 05:32 Blood Culture Gram Stain - Preliminary Blood Blood Culture - Preliminary Presumptive Staph aureus 08/24/20 05:40 Blood Culture Gram Stain - Preliminary Blood Blood Culture - Preliminary Presumptive Staph aureus 08/24/20 05:45 Gram Stain - Preliminary Chest Wound Culture - Preliminary Presumptive Staph aureus 08/24/20 05:32 Blood Culture - Final Blood 08/24/20 05:40 Blood Culture - Final Blood 08/24/20 05:45 Anaerobic Culture - Preliminary Chest Assessment and Plan Assessment: Impression: Acute hypoxic and hypercapnic respiratory failure Sepsis secondary from sternal wound infection and dehiscence. Patient required a very short brief course of norepinephrine, after receiving fluid boluses, this may even possibly be consistent with septic shock. Acute kidney injury presently on hemodialysis. Acute metabolic acidosis secondary to acute kidney injury and sepsis, resolved Acute transaminitis secondary to hypoperfusion. Acute diastolic congestive heart failure with bilateral pleural effusions Possible Septic shock secondary to sternal wound infection Hypervolemic hyponatremia History of hypertension History of cervical stenosis Previous tobacco dependence. History of mild interstitial lung disease/pulmonary fibrosis Recommendation: Continue to monitor the patient in the ICU. Alternate BiPAP with high flow nasal cannula. Broad-spectrum antibiotics as per infectious disease on the case, daptomycin was added per infectious disease. GI and DVT prophylaxis. Continue previous cardiac meds. Continue hemodialysis. Prognosis is extremely poor and guarded, we'll continue to follow. Critical care time is over 30 minutes not including the time spent on procedures Time with Patient: Greater than 30
[2020-08-25] MEDS: METOPROLOL TARTRATE 25 MG TAB PO SCH ×2 (15:00→23:42)
--- NOTE | 2020-08-25 15:35 | P.PN ---
Subjective Progress Note Date: 08/25/20 This is a 75-year-old female patient of Dr. Rich Avila, Dr. Sloan and Dr. Guadalupe. She has a past medical history significant for hypertension, hyperlipidemia, pulmonary fibrosis, asthma, obesity, remote history of tobacco dependence with smoking 32 years ago, osteoarthritis, cervical stenosis post anterior cervical decompression, discectomy and fusion, TIA as a child at age 11 and family history of premature coronary artery disease with her father being diagnosed in his early 50s. Recently, the patient has been experiencing episodes of shortness of breath over the past 6 months with just minimal activity. She also complained of some lower extremity swelling which did resolve with some diuresis. she underwent a stress test which showed anterior wall ischemia with small reversible defect. a 2-D echocardiogram which showed mild aortic valve insufficiency, mild mitral valve regurgitation, mild tricuspid valve regurgitation and left ventricular function to be normal with an ejection fraction of 55%. Subsequently she underwent an elective heart catheterization on 07/27/2020 which demonstrated a left main stenosis with QING with a calculation of 2.6 mm, a 40% stenosis to her mid left anterior descending coronary artery and a 30% stenosis to her right coronary artery. Due to the patient's symptoms and findings on her heart catheterization of left main stenosis a consult was placed to Dr. Sethi from cardiothoracic surgery for further evaluation and treatment recommendations. During her preoperative workup her serum sodium level was found to be 120 and was admitted prior to surgery for treatment of hyponatremia. Last admission On 08/06/2020-08/19/20 the patient was admitted to the hospital for treatment of her hyponatremia, and once her hyponatremia was resolved on 08/10/2020, asubsequently taken to the operating room where Dr. Sethi performed a double vessel coronary artery bypass grafting surgery using the left internal mammary artery to left anterior setting coronary artery, a reverse greater saphenous vein graft from the aorta to the first obtuse marginal coronary artery, endoscopic harvesting of the left greater saphenous vein from the groin Upon completion of the surgery the patient was transferred to the intensive care unit where she was recovered, monitored hemodynamically and where she progressed cardiac rehabilitation phase Her oxygen was titrated down, she continued to work with physical/occupational therapy and cardiac rehabilitation, she was tolerating an oral diet, her pain was well controlled without narcotics and she was ready to be discharged home with [facility] on postoperative day #9. Did not require home O2 on last admission however she required new medication changes including diuretics during that last admission. Patient comes in in worsening shortness of breath anasarca, no chest pain, has BARKER, edma without leg pain new medications from last visit was compliant, requiring lipitor 75bid, tolvaptan. meotprolol 75 bid plavix, lasix 40 mg daily losartain 25 asa 325, ferrous sulfate and fluconazole. patient comes in now for CHF, anarsarc ely pleural effusion, consult with dr Sethi. and cardiology, if okay will be cardiothoracic surgeon can also perform the thoracentesis, however with hypoxemia, also have requested Dr. Gamboa's services. Patient has a hemoglobin of 7.0 on and 3, platelet count of 305, hemoglobin right to admission was 8.0 denies any Hemoccult stools, creatinine was 1.60 from a previous of 0.9 blood pressure is in the low 90s systolic, pulse ox, 90 on 4 L nasal cannula, patient was not discharged with home O2 during her last admission 08/24: A-Team was called for mental status changes. Patient was found to have a blood pressure 99/65, heart rate of 85 and pulse ox of 96% on a nonrebreather with respiratory rate of 32. Patient was transferred to the ICU. She was sta rted on vancomycin and cefepime. Patient has been seen by cardiology with plan to continue vasopressor support, patient may need pleurocentesis. Stat echocardiogram was done to rule out pericardial effusion or tamponade. Patient has been seen by nephrology for acute kidney injury secondary to ATN secondary to hypotension and cardiorenal syndrome. Patient is currently on bicarb drip, status post Lasix 80 mg IV once. Renal replacement therapy to be initiated immediately. Vascular consult in place for a dialysis catheter placement and start hemodialysis today with second treatment tomorrow. Sternal wound was producing thick yellowish brown fluid, was opened approximately 2 cm and deep culture was taken, packed and covered with 4 x 4 dressing. She is requiring vasopressors. She is hypothermic and warming blanket is in place.Patient had minimal output yesterday and none today. She is status post 2.5 L of fluids. 08/25 patient was examined in the ICU. She was able to maintain oxygenation on BiPAP overnight switch to high flow 15 m this morning. Patient did have episodes of agitation last night and was started on Seroquel. She did receive a dose of Seroquel prior to admission and was found to be resting comfortably. Patient is off pressors and bicarbonate drip and metabolic acidosis seemed to have cleared off. On evaluation of patient's lab, WBC is 14.3, hemoglobin 6.5 platelet 208 ABG this morning has a pH of 7.47 CO2 74. Bicarb 29. Sodium has improved to 126 chloride 96 BUN 43 creatinine 2.79 lactic acid has improved to 2.9 calcium 7 liver enzymes elevated AST at 2874 ALT 1469 alkaline phosphatase 192 CRP 356 BNP 13,000 UA does suggest some infection with WBC of 88 hyaline casts 33 protein 2+ urine blood trace nitrite negative leukocyte Estrace negative. Wound cultures positive for presumptive staph aureus. Patient's blood culture from yesterday are positive with presumptive staph aureus. Repeat blood cultures ordered. Patient received 1 unit of PRBCs for low hemoglobin. Urine output has improved to 20-40 mL's per hour. Patient did receive a dose of DDAVP for hyponatremia. Normal saline is running at 50 mL per hour. Did receive hemodialysis today with 2 L ultrafiltration. Patient was also noted to be in A. fib with RVR intermittently and her dose of Lopressor was increased to 25 mg every 8 hours. Continue daptomycin and cefepime for antibiotic coverage. Monitor patient's for QTC prolongation well on Seroquel. Patient has significant dehiscence of wound and may need I&D C review of system could not be obtained due to decreased awakeness Objective - Vital Signs Vital signs: Vital Signs Temp 97.7 F 08/25/20 12:00 Pulse 112 H 08/25/20 12:45 Resp 33 H 08/25/20 12:45 BP 167/53 08/25/20 11:58 Pulse Ox 99 08/25/20 12:45 Intake & Output 08/24/20 08/25/20 08/25/20 18:59 06:59 18:59 Intake Total 2129.874 8299.437 5069 Output Total 2304 160 2170 Balance -174.126 877.447 -1045 Weight 83.4 kg Intake: IV 2088 896 555 .9 NS 110 90 Calcium Gluconate 1 gm In 100 Sodium Chloride 0.9% 100 ml @ 100 mls/hr IVPB ONCE ONE Rx#:[id number] Cefepime 2 gm In Sodium 100 Chloride 0.9% 100 ml @ 25 mls/hr IVPB ONCE STA Rx# :[id number] DAPTOmycin 500 mg In 50 Sodium Chloride 0.9% 50 ml @ 100 mls/hr IVPB Q48H [facility] Rx#:[id number] Desmopressin Acetate 14 50 mcg In Sodium Chloride 0. 9% 50 ml @ 200 mls/hr IVPB ONCE ONE Rx#: [id number] Dextrose 5% in Water 1, 820 600 200 000 ml @ 50 mls/hr IV . Q23H [facility] with Sodium Bicarb (1 Meq/ml) 150 ml Rx#:[id number] Pressure Bag 18 36 15 Sodium Chloride 0.9% 1, 100 000 ml @ 50 mls/hr IV . Q20H [facility] Rx#:[id number] Sodium Chloride 0.9% 1, 1000 000 ml @ 999 mls/hr IV . Q1H1M ONE Rx#:[id number] Vancomycin 1,500 mg In 250 Sodium Chloride 0.9% 250 ml @ 125 mls/hr IVPB ONCE STA Rx#:[id number] Intake, IV Titration 41.874 141.447 Amount Norepinephrine 4 mg In 41.874 141.447 Sodium Chloride 0.9% 250 ml @ 0.05 MCG/KG/MIN 14. 973 mls/hr IV .[id number] [facility] Rx#:[id number] Blood Product 570 Rc Pheresis 2 As3 Unit 285 [id number] Output: Urine 104 160 170 Hemodialysis 2200 2000 Other: Voiding Method Indwelling Catheter Indwelling Catheter Indwelling Catheter ABP, PAP, CO, CI - Last Documented Arterial Blood Pressure 114/38 - Exam PHYSICAL EXAMINATION Gen: This is a 75-year-old female. Patient is resting in bed and appears to be comfortable. She is in the ICU. Tonya blanket in place for hyp othermia. HEENT: Head is atraumatic, normocephalic. Pupils equal, round. Sclerae is anicteric. Patient is on Bipap. NECK: Supple. No JVD. No lymphadenopathy. No thyromegaly. LUNGS: Diminished. No wheezes or rhonchi. No intercostal retractions. HEART: Regular rate and rhythm. 2/6 systolic murmur. Dressing in place to sternal wound with reported purulent drainage. ABDOMEN: Soft. Bowel sounds are present. No masses. No tenderness. EXTREMITIES: 2+ bilat pitting edema. No calf tenderness. NEUROLOGICAL: Patient is sleeping - Labs CBC & Chem 7: 08/25/20 04:00 08/25/20 04:00 Labs: Abnormal Lab Results - Last 24 Hours (Table) 08/23/20 08/24/20 08/24/20 Range/Units 00:16 05:32 15:33 WBC (3.8-10.6) k/uL RBC (3.80-5.40) m/uL Hgb (11.4-16.0) gm/dL Hct (34.0-46.0) % MCHC (31.0-37.0) g/dL Neutrophils # (Manual) (1.3-7.7) k/uL Metamyelocytes # (Man) (0) k/uL Myelocytes # (Manual) (0) k/uL ESR (0-20) mm/hr ABG pH (7.35-7.45) ABG pO2 (83-108) mmHg ABG HCO3 (21-25) mmol/L ABG Total CO2 26 H (19-24) mmol/L ABG O2 Saturation 98.0 H (94-97) % Sodium (137-145) mmol/L Chloride (98-107) mmol/L BUN (7-17) mg/dL Creatinine (0.52-1.04) mg/dL Glucose (74-99) mg/dL POC Glucose (mg/dL) (75-99) mg/dL Plasma Lactic Acid Garrett (0.7-2.0) mmol/L Calcium (8.4-10.2) mg/dL Total Bilirubin (0.2-1.3) mg/dL AST (14-36) U/L ALT (4-34) U/L Alkaline Phosphatase (38-126) U/L C-Reactive Protein (<10.0) mg/L Total Protein (6.3-8.2) g/dL Albumin (3.5-5.0) g/dL Procalcitonin 16.57 H (0.02-0.09) ng/mL Crossmatch See Detail 08/24/20 08/24/20 08/24/20 Range/Units 17:36 17:39 18:00 WBC (3.8-10.6) k/uL RBC (3.80-5.40) m/uL Hgb (11.4-16.0) gm/dL Hct (34.0-46.0) % MCHC (31.0-37.0) g/dL Neutrophils # (Manual) (1.3-7.7) k/uL Metamyelocytes # (Man) (0) k/uL Myelocytes # (Manual) (0) k/uL ESR (0-20) mm/hr ABG pH (7.35-7.45) ABG pO2 (83-108) mmHg ABG HCO3 (21-25) mmol/L ABG Total CO2 (19-24) mmol/L ABG O2 Saturation (94-97) % Sodium 135 L (137-145) mmol/L Chloride 97 L (98-107) mmol/L BUN 34 H (7-17) mg/dL Creatinine 2.80 H (0.52-1.04) mg/dL Glucose 120 H (74-99) mg/dL POC Glucose (mg/dL) 131 H (75-99) mg/dL Plasma Lactic Acid Garrett 3.6 H* (0.7-2.0) mmol/L Calcium 7.1 L (8.4-10.2) mg/dL Total Bilirubin (0.2-1.3) mg/dL AST (14-36) U/L ALT (4-34) U/L Alkaline Phosphatase (38-126) U/L C-Reactive Protein (<10.0) mg/L Total Protein (6.3-8.2) g/dL Albumin (3.5-5.0) g/dL Procalcitonin (0.02-0.09) ng/mL Crossmatch 08/24/20 08/24/20 08/25/20 Range/Units 22:10 23:49 04:00 WBC 14.3 H (3.8-10.6) k/uL RBC 2.25 L (3.80-5.40) m/uL Hgb 6.5 L* (11.4-16.0) gm/dL Hct 20.9 L (34.0-46.0) % MCHC 30.9 L (31.0-37.0) g/dL Neutrophils # (Manual) 11.80 H (1.3-7.7) k/uL Metamyelocytes # (Man) 0.14 H (0) k/uL Myelocytes # (Manual) 0.29 H (0) k/uL ESR (0-20) mm/hr ABG pH (7.35-7.45) ABG pO2 (83-108) mmHg ABG HCO3 (21-25) mmol/L ABG Total CO2 (19-24) mmol/L ABG O2 Saturation (94-97) % Sodium (137-145) mmol/L Chloride (98-107) mmol/L BUN (7-17) mg/dL Creatinine (0.52-1.04) mg/dL Glucose (74-99) mg/dL POC Glucose (mg/dL) 124 H (75-99) mg/dL Plasma Lactic Acid Garrett 4.0 H* (0.7-2.0) mmol/L Calcium (8.4-10.2) mg/dL Total Bilirubin (0.2-1.3) mg/dL AST (14-36) U/L ALT (4-34) U/L Alkaline Phosphatase (38-126) U/L C-Reactive Protein (<10.0) mg/L Total Protein (6.3-8.2) g/dL Albumin (3.5-5.0) g/dL Procalcitonin (0.02-0.09) ng/mL Crossmatch 08/25/20 08/25/20 08/25/20 Range/Units 04:00 04:00 04:00 WBC (3.8-10.6) k/uL RBC (3.80-5.40) m/uL Hgb (11.4-16.0) gm/dL Hct (34.0-46.0) % MCHC (31.0-37.0) g/dL Neutrophils # (Manual) (1.3-7.7) k/uL Metamyelocytes # (Man) (0) k/uL Myelocytes # (Manual) (0) k/uL ESR 28 H (0-20) mm/hr ABG pH (7.35-7.45) ABG pO2 (83-108) mmHg ABG HCO3 (21-25) mmol/L ABG Total CO2 (19-24) mmol/L ABG O2 Saturation (94-97) % Sodium 136 L (137-145) mmol/L Chloride 96 L (98-107) mmol/L BUN 43 H (7-17) mg/dL Creatinine 2.79 H (0.52-1.04) mg/dL Glucose 113 H (74-99) mg/dL POC Glucose (mg/dL) (75-99) mg/dL Plasma Lactic Acid Garrett (0.7-2.0) mmol/L Calcium 7.0 L (8.4-10.2) mg/dL Total Bilirubin 3.4 H (0.2-1.3) mg/dL AST 2874 H (14-36) U/L ALT 1469 H (4-34) U/L Alkaline Phosphatase 192 H (38-126) U/L C-Reactive Protein 356.2 H (<10.0) mg/L Total Protein 5.1 L (6.3-8.2) g/dL Albumin 2.8 L (3.5-5.0) g/dL Procalcitonin (0.02-0.09) ng/mL Crossmatch 08/25/20 08/25/20 08/25/20 Range/Units 04:00 07:10 09:42 WBC (3.8-10.6) k/uL RBC (3.80-5.40) m/uL Hgb (11.4-16.0) gm/dL Hct (34.0-46.0) % MCHC (31.0-37.0) g/dL Neutrophils # (Manual) (1.3-7.7) k/uL Metamyelocytes # (Man) (0) k/uL Myelocytes # (Manual) (0) k/uL ESR (0-20) mm/hr ABG pH 7.47 H (7.35-7.45) ABG pO2 74 L (83-108) mmHg ABG HCO3 29 H (21-25) mmol/L ABG Total CO2 31 H (19-24) mmol/L ABG O2 Saturation (94-97) % Sodium (137-145) mmol/L Chloride (98-107) mmol/L BUN (7-17) mg/dL Creatinine (0.52-1.04) mg/dL Glucose (74-99) mg/dL POC Glucose (mg/dL) (75-99) mg/dL Plasma Lactic Acid Garrett 3.9 H* 2.9 H* (0.7-2.0) mmol/L Calcium (8.4-10.2) mg/dL Total Bilirubin (0.2-1.3) mg/dL AST (14-36) U/L ALT (4-34) U/L Alkaline Phosphatase (38-126) U/L C-Reactive Protein (<10.0) mg/L Total Protein (6.3-8.2) g/dL Albumin (3.5-5.0) g/dL Procalcitonin (0.02-0.09) ng/mL Crossmatch 08/25/20 Range/Units 09:52 WBC (3.8-10.6) k/uL RBC (3.80-5.40) m/uL Hgb (11.4-16.0) gm/dL Hct (34.0-46.0) % MCHC (31.0-37.0) g/dL Neutrophils # (Manual) (1.3-7.7) k/uL Metamyelocytes # (Man) (0) k/uL Myelocytes # (Manual) (0) k/uL ESR (0-20) mm/hr ABG pH (7.35-7.45) ABG pO2 (83-108) mmHg ABG HCO3 (21-25) mmol/L ABG Total CO2 (19-24) mmol/L ABG O2 Saturation (94-97) % Sodium (137-145) mmol/L Chloride (98-107) mmol/L BUN (7-17) mg/dL Creatinine (0.52-1.04) mg/dL Glucose (74-99) mg/dL POC Glucose (mg/dL) (75-99) mg/dL Plasma Lactic Acid Garrett 2.9 H* (0.7-2.0) mmol/L Calcium (8.4-10.2) mg/dL Total Bilirubin (0.2-1.3) mg/dL AST (14-36) U/L ALT (4-34) U/L Alkaline Phosphatase (38-126) U/L C-Reactive Protein (<10.0) mg/L Total Protein (6.3-8.2) g/dL Albumin (3.5-5.0) g/dL Procalcitonin (0.02-0.09) ng/mL Crossmatch Microbiology - Last 24 Hours (Table) 08/24/20 05:00 Urine Culture - Final Urine,Voided 08/24/20 05:32 Blood Culture Gram Stain - Preliminary Blood Blood Culture - Preliminary Presumptive Staph aureus 08/24/20 05:40 Blood Culture Gram Stain - Preliminary Blood Blood Culture - Preliminary Presumptive Staph aureus 08/24/20 05:45 Gram Stain - Preliminary Chest Wound Culture - Preliminary Presumptive Staph aureus 08/24/20 05:32 Blood Culture - Final Blood 08/24/20 05:40 Blood Culture - Final Blood Assessment and Plan Plan: 1. Sepsis with septic shock with multiorgan failure with metabolic encephalopathy, acute kidney injury, acute heart failure, acute respiratory failure. Patient on daptomycin and cefepime. Off vasopressors. Blood culture and wound culture positive for staph aureus. Continue normal saline at 50 mL per hour 2. Acute hypoxemic respiratory failure with pulmonary edema and pleural effusions secondary to CHF, diastolic, EF 55-60% on current TTE, Patient has underlying pulmonary hypertension as well, consult with cardiology, see above. O2 supplementation, patient's currently chest pain-free, negative for covid hold Lasix 3. Acute kidney injury secondary to ATN secondary to hypotension and cardiorenal syndrome. Vascular surgery consult is for dialysis catheter placement and patient be started on hemodialysis today with second treatment tomorrow. 4. Hyperkalemia secondary to potassium supplementation, losartan and acute kidney injury as well as severe acidosis. Consult with nephrology appreciated. Continue medical management. 5. Metabolic acidosis secondary to acute kidney injury. Resolved 6. Metabolic encephalopathy secondary to sepsis, acute kidney injury, acute heart failure, acute respiratory failure, metabolic acidosis and hyperkalemia. 7. Acute diastolic heart failure, EF 55%, mild AI and mild MR and mild TR, also complicated by severe protein calorie malnutrition, sat echocardiogram, cardiology consultation, patient has worsening hypoxemia thoracic ultrasound, O2 supplementation, IV diuresing 40 mg Lasix every 12 hours, patient might need thoracentesis, either services from cardiothoracic pulmonary do procedure as needed, Lasix 40 mg every 12 hours, 8. Sepsis with sternal wound dehiscence and possible UTI. Infectious disease consult. Patient is currently on daptomycin and cefepime. Wound culture positi ve for staph 9. Anemia of chronic blood loss from recent surgery. Continue monitor closely and transfuse if hemoglobin 7 or below. On iron supplementations status post 1 unit PRBC on 06/24 10. Hypervolemic Hyponatremia. Status post DDAVP and dialysis. 2 L ultrafiltration 11. CAD, with prior CABG performed on 08/10/2020, two-vessel, involving HOLLAND to LAD, and reverse greater saphenous vein to obtuse marginal coronary artery. Continue aspirin 325 mg daily, Plavix 75 mg daily, Toprol all 75 mg twice a day, 12. Moderate protein calorie malnutrition, with anasarca and hypotension. 13. History of pulmonary fibrosis. Continue duo nebs and albuterol 14. Asthma, mild intermittent. Continue ipratropium albuterol nebulizers 15. Hyperlipidemia. Continue statin daily 16. Hypertension. Currently hypotensive 17. GI prophylaxis. Pantoprazole 18. DVT prophylaxis: SCDs 19. Blood sugar management in a nondiabetic. insulin scale ACHS. 20. Dry mouth patient needs an oral lubricant, status post fluconazole Prognosis guarded DISCHARGE PLAN TBD.
[2020-08-25 16:48] LABS: ABG Base Excess 3.4 mmol/L; ABG HCO3 27 mmol/L (21-25); ABG Oxygen Saturation 93.5 % (94-97); ABG PCO2 39 mmHg (35-45); ABG PH 7.46 (7.35-7.45); ABG PO2 67 mmHg (83-108); ABG TCO2 29 mmol/L (19-24)
[2020-08-25 16:50] LABS: Allen Test Performed? no
[2020-08-25 16:58] LABS: Hypochromasia Marked; MCH 28.8 pg (25.0-35.0); MCHC 31.1 g/dL (31.0-37.0); MCV 92.7 fL (80.0-100.0); Mean Platelet Volume 9.5; Platelet Count 133 k/uL (150-450); Poikilocytosis Slight; RDW 15.6 % (11.5-15.5)
[2020-08-25 17:03] LABS: Glucose,Whole Blood 131 mg/dL (75-99)
[2020-08-25 17:04] LABS: Albumin 2.7 g/dL (3.5-5.0); Calcium 7.9 mg/dL (8.4-10.2); Magnesium 2.1 mg/dL (1.6-2.3); Potassium 3.8 mmol/L (3.5-5.1); Total Bilirubin 3.3 mg/dL (0.2-1.3)
[2020-08-25 17:09] LABS: HCT 16.7 % (34.0-46.0); HGB 5.2 gm/dL (11.4-16.0)
[2020-08-25] MEDS ORDERED: DEXMEDETOMIDINE/0.9% NACL(PMX) 400 MCG in EMPTY BAG 1 BAG IV SCH (17:30)
[2020-08-25 17:48] LABS: INR 1.9 (<1.2); Prothrombin Time 18.3 sec (9.0-12.0)
[2020-08-25] MEDS ORDERED: ROCURONIUM 10 MG/ML (5 ML VIAL) IV ONE (18:00)
[2020-08-25] MEDS ORDERED: ETOMIDATE 2 MG/ML 10 ML VIAL ONE (18:00)
[2020-08-25 18:06] LABS: Band Neutrophils % 18 %; Eosinophils # (M) 0.15 k/uL (0-0.7); Lymphocytes # (M) 1.17 k/uL (1.0-4.8); Metamyelocytes # (M) 0.29 k/uL (0); Metamyelocytes % 2 %; Monocytes # (M) 0.58 k/uL (0-1.0); Myelocytes # (M) 0.15 k/uL (0); Myelocytes % 1 %; Neutrophils % (M) 68 %; Nucleated Red Blood Cells 3 /100 WBC (0-0); Total Cells Counted 200; WBC 14.6 k/uL (3.8-10.6)
--- NOTE | 2020-08-25 18:17 | XR ---
EXAMINATION TYPE: XR chest 1V portable DATE OF EXAM: 08/25/2020 COMPARISON: Today HISTORY: Tube placement TECHNIQUE: Single view FINDINGS: Endotracheal tube is approximately 3 cm from the eric. There is pulmonary interstitial an d airspace edema. Heart is enlarged. There are sternal wires. There are chest leads. There is nasogas tric tube in the stomach. IMPRESSION: Tubing in good position. Pulmonary edema that is consistent with RDS or congestive heart failure which is slightly improved compared to exam 30 minutes ago.
[2020-08-25 18:21] LABS: ABG Base Excess 1.5 mmol/L; ABG HCO3 26 mmol/L (21-25); ABG PCO2 42 mmHg (35-45); ABG PH 7.41 (7.35-7.45); ABG PO2 338 mmHg (83-108); ABG TCO2 27 mmol/L (19-24)
[2020-08-25 18:23] LABS: Allen Test Performed? no
[2020-08-25] MEDS: HEPARIN SODIUM,PORCINE 5,000 UNIT/ML 1 ML VIAL SQ SCH ×2 (18:48→23:42)
[2020-08-25] MEDS: SENNOSIDES-DOCUSATE SODIUM 1 EACH TAB PO SCH (20:26)
[2020-08-25] MEDS: CHLORHEXIDINE GLUCONATE 15 ML CUP MUCOUS MEM SCH (20:26)
--- NOTE | 2020-08-25 21:58 | PN ---
PROGRESS NOTE DATE OF SERVICE: 08/25/2020 REASON FOR FOLLOWUP: Sternal wound infection. INTERVAL HISTORY: The patient did spike a low-grade fever of 100.6 this evening. The patient has been slightly anxious and is on a BiPAP. She remains lethargic and is unable to provide any history. No vomiting or diarrhea has been reported. PHYSICAL EXAMINATION: Blood pressure 105/63, pulse of 91, temperature 99.4. General description is an elderly female up in the bed in no distress. RESPIRATORY SYSTEM: Unlabored breathing with decreased breath sounds at the base. No wheeze. HEART: S1, S2. Regular rate and rhythm. ABDOMEN: Soft. No tenderness. LABS: Hemoglobin is 5.1, white count 14.6. BUN of 27, creatinine 1.94. Blood culture with Staph aureus. DIAGNOSTIC IMPRESSION AND PLAN: Patient with Staphylococcus aureus bacteremia from sternal wound infection with concern for underlying osteomyelitis. Blood culture repeat positive. Blood culture will be repeated daily. Continue with daptomycin and adjust antibiotic further based on the clinical response and culture. Continue with supportive care. MMODL / IJN: [id number] /
[2020-08-25 22:37] LABS: ABG PH 7.08 (7.35-7.45)
[2020-08-25 23:47] LABS: Glucose,Whole Blood 153 mg/dL (75-99)
[2020-08-26] MEDS: INSULIN ASPART (NovoLOG) 100 UNIT/ML VIAL SQ SCH ×4 (00:14→17:20)
[2020-08-26] MEDS: NOREPINEPHRINE 4 MG in SODIUM CHLORIDE 0.9% 250 ML IV SCH ×4 (01:34→17:24)
[2020-08-26 03:53] LABS: HCT 32.6 % (34.0-46.0); Hypochromasia Moderate; MCH 30.6 pg (25.0-35.0); MCHC 33.3 g/dL (31.0-37.0); Mean Platelet Volume 9.2; Platelet Count 159 k/uL (150-450); Poikilocytosis Moderate; RBC 3.54 m/uL (3.80-5.40); RDW 15.4 % (11.5-15.5)
[2020-08-26 04:09] LABS: Albumin 2.5 g/dL (3.5-5.0); Calcium 7.6 mg/dL (8.4-10.2); Magnesium 2.1 mg/dL (1.6-2.3); Phosphorus 4.1 mg/dL (2.5-4.5); Potassium 3.7 mmol/L (3.5-5.1); Total Bilirubin 3.3 mg/dL (0.2-1.3); Total Protein 4.9 g/dL (6.3-8.2)
[2020-08-26 04:30] LABS: HGB 10.8 gm/dL (11.4-16.0)
[2020-08-26 04:35] LABS: ABG Base Excess 1.6 mmol/L; ABG HCO3 26 mmol/L (21-25); ABG Oxygen Saturation 97.1 % (94-97); ABG PCO2 39 mmHg (35-45); ABG PH 7.43 (7.35-7.45); ABG PO2 87 mmHg (83-108); ABG TCO2 27 mmol/L (19-24)
[2020-08-26] MEDS: CEFEPIME 1 GM in SODIUM CHLORIDE 0.9% 50 ML IVPB SCH (04:45)
[2020-08-26] MEDS: SODIUM CHLORIDE 0.9% 1,000 ML IV SCH (04:51)
[2020-08-26 05:01] LABS: Mycoplasma IgG Antibody (EIA) 1.65 INDEX (<=0.90); Mycoplasma IgM Antibody 0.53 INDEX (<=0.90)
[2020-08-26 05:05] LABS: Allen Test Performed? no
[2020-08-26 05:25] LABS: Glucose,Whole Blood 127 mg/dL (75-99)
[2020-08-26 05:29] LABS: Band Neutrophils % 6 %; Lymphocytes # (M) 3.85 k/uL (1.0-4.8); Metamyelocytes # (M) 0.89 k/uL (0); Metamyelocytes % 3 %; Monocytes # (M) 1.78 k/uL (0-1.0); Myelocytes # (M) 0.59 k/uL (0); Myelocytes % 2 %; Neutrophils % (M) 71 %; Nucleated Red Blood Cells 5 /100 WBC (0-0); Total Cells Counted 200; WBC 29.6 k/uL (3.8-10.6)
[2020-08-26 05:31] LABS: Anisocytosis (M) Present; Hypochromasia (M) Present; Toxic Granulation Present; Toxic Vacuolation Present
--- NOTE | 2020-08-26 07:32 | P.PN ---
Subjective Progress Note Date: 08/26/20 Principal diagnosis: Hypotension This is a 75-year-old female patient who underwent coronary artery bypass grafting times to 2 weeks ago with also history of pulmonary fibrosis as well as multiple comorbid conditions was admitted to the hospital initiated with increasing shortness of breath without any symptoms of chest pain or chest discomfort. Subsequently the patient was admitted to the [address] [place] [address] unit and subsequently she was transferred to the intensive. For increasing shortness of breath and also change in mental status. She was diagnosed with sepsis secondary to infection in the sternum. The patient was seen this morning. Apparently she was intubated yesterday. She is requiring small dose of norepinephrine [place] she has been maintaining normal sinus mechanism was controlled heart rate on the current dose of metoprolol by mouth. She underwent an echocardiogram which revealed normal left ventricular systolic function with mild aortic stenosis. The creatinine is slightly better today. I was unable to review the chest x-ray itself because I couldn't open it. Objective - Vital Signs Vital signs: Vital Signs Temp 99.3 F 08/26/20 04:00 Pulse 82 08/26/20 07:00 Resp 22 08/26/20 07:00 BP 120/53 08/26/20 07:00 Pulse Ox 96 08/26/20 06:45 Intake & Output 08/25/20 08/26/20 08/26/20 18:59 06:59 18:59 Intake Total 5652.534 7969.986 Output Total 2260 215 Balance -091.718 8545.986 Weight 86.2 kg Intake: IV 873 832 .9 NS 90 Calcium Gluconate 1 gm In 100 Sodium Chloride 0.9% 100 ml @ 100 mls/hr IVPB ONCE ONE Rx#:[id number] Cefepime 1 gm In Sodium 50 Chloride 0.9% 50 ml @ 12. 5 mls/hr IVPB Q24H TORIBIO Rx #:[id number] Desmopressin Acetate 14 50 mcg In Sodium Chloride 0. 9% 50 ml @ 200 mls/hr IVPB ONCE ONE Rx#: [id number] Dextrose 5% in Water 1, 200 000 ml @ 50 mls/hr IV . Q23H TORIBIO with Sodium Bicarb (1 Meq/ml) 150 ml Rx#:[id number] Pressure Bag 33 12 Sodium Chloride 0.9% 1, 400 770 000 ml @ 50 mls/hr IV . Q20H TORIBIO Rx#:[id number] Intake, IV Titration 008.590 5709.986 Amount Norepinephrine 4 mg In 105.811 856.424 Sodium Chloride 0.9% 250 ml @ 0.05 MCG/KG/MIN 14. 973 mls/hr IV .[id number] TORIBIO Rx#:[id number] propofoL 500 mg In Empty 286.562 Bag 1 bag @ Titrate IV . Q0M TORIBIO Rx#:[id number] Blood Product 570 930 Rc As-1 Unit 0 310 [id number] Rc Pheresis 2 As3 Unit 285 [id number] Rc Pheresis As-3 Unit 310 [id number] Output: Urine 260 215 Hemodialysis 2000 Other: Voiding Method Indwelling Catheter Indwelling Catheter ABP, PAP, CO, CI - Last Documented Arterial Blood Pressure 153/92 - Constitutional General appearance: Present: no acute distress - Respiratory Respiratory: bilateral: diminished - Cardiovascular Rhythm: regular - Labs CBC & Chem 7: 08/26/20 03:50 08/26/20 03:50 Labs: Abnormal Lab Results - Last 24 Hours (Table) 08/23/20 08/24/20 08/24/20 Range/Units 00:16 04:02 05:32 WBC (3.8-10.6) k/uL RBC (3.80-5.40) m/uL Hgb (11.4-16.0) gm/dL Hct (34.0-46.0) % RDW (11.5-15.5) % Plt Count (150-450) k/uL Neutrophils # (Manual) (1.3-7.7) k/uL Monocytes # (Manual) (0-1.0) k/uL Metamyelocytes # (Man) (0) k/uL Myelocytes # (Manual) (0) k/uL Nucleated RBCs (0-0) /100 WBC PT (9.0-12.0) sec INR (<1.2) ABG pH 7.08 L* (7.35-7.45) ABG pO2 (83-108) mmHg ABG HCO3 (21-25) mmol/L ABG Total CO2 (19-24) mmol/L ABG O2 Saturation (94-97) % ABG Lactic Acid (0.5-1.6) mmol/L Sodium (137-145) mmol/L BUN (7-17) mg/dL Creatinine (0.52-1.04) mg/dL Glucose (74-99) mg/dL POC Glucose (mg/dL) (75-99) mg/dL Plasma Lactic Acid Garrett (0.7-2.0) mmol/L Calcium (8.4-10.2) mg/dL Total Bilirubin (0.2-1.3) mg/dL AST (14-36) U/L ALT (4-34) U/L Alkaline Phosphatase (38-126) U/L Total Protein (6.3-8.2) g/dL Albumin (3.5-5.0) g/dL Procalcitonin 16.57 H (0.02-0.09) ng/mL Mycoplasma pneumon IgG (<=0.90) INDEX Crossmatch See Detail 08/24/20 08/25/20 08/25/20 Range/Units 17:36 07:10 09:42 WBC (3.8-10.6) k/uL RBC (3.80-5.40) m/uL Hgb (11.4-16.0) gm/dL Hct (34.0-46.0) % RDW (11.5-15.5) % Plt Count (150-450) k/uL Neutrophils # (Manual) (1.3-7.7) k/uL Monocytes # (Manual) (0-1.0) k/uL Metamyelocytes # (Man) (0) k/uL Myelocytes # (Manual) (0) k/uL Nucleated RBCs (0-0) /100 WBC PT (9.0-12.0) sec INR (<1.2) ABG pH 7.47 H (7.35-7.45) ABG pO2 74 L (83-108) mmHg ABG HCO3 29 H (21-25) mmol/L ABG Total CO2 31 H (19-24) mmol/L ABG O2 Saturation (94-97) % ABG Lactic Acid (0.5-1.6) mmol/L Sodium (137-145) mmol/L BUN (7-17) mg/dL Creatinine (0.52-1.04) mg/dL Glucose (74-99) mg/dL POC Glucose (mg/dL) (75-99) mg/dL Plasma Lactic Acid Garrett 2.9 H* (0.7-2.0) mmol/L Calcium (8.4-10.2) mg/dL Total Bilirubin (0.2-1.3) mg/dL AST (14-36) U/L ALT (4-34) U/L Alkaline Phosphatase (38-126) U/L Total Protein (6.3-8.2) g/dL Albumin (3.5-5.0) g/dL Procalcitonin (0.02-0.09) ng/mL Mycoplasma pneumon IgG 1.65 H (<=0.90) INDEX Crossmatch 08/25/20 08/25/20 08/25/20 Range/Units 09:52 16:40 16:40 WBC 14.6 H (3.8-10.6) k/uL RBC 1.80 L (3.80-5.40) m/uL Hgb 5.2 L* (11.4-16.0) gm/dL Hct 16.7 L* (34.0-46.0) % RDW 15.6 H (11.5-15.5) % Plt Count 133 L (150-450) k/uL Neutrophils # (Manual) 12.50 H (1.3-7.7) k/uL Monocytes # (Manual) (0-1.0) k/uL Metamyelocytes # (Man) 0.29 H (0) k/uL Myelocytes # (Manual) 0.15 H (0) k/uL Nucleated RBCs 3 H (0-0) /100 WBC PT (9.0-12.0) sec INR (<1.2) ABG pH (7.35-7.45) ABG pO2 (83-108) mmHg ABG HCO3 (21-25) mmol/L ABG Total CO2 (19-24) mmol/L ABG O2 Saturation (94-97) % ABG Lactic Acid (0.5-1.6) mmol/L Sodium (137-145) mmol/L BUN 27 H (7-17) mg/dL Creatinine 1.94 H (0.52-1.04) mg/dL Glucose 124 H (74-99) mg/dL POC Glucose (mg/dL) (75-99) mg/dL Plasma Lactic Acid Garrett 2.9 H* (0.7-2.0) mmol/L Calcium 7.9 L (8.4-10.2) mg/dL Total Bilirubin 3.3 H (0.2-1.3) mg/dL AST 1638 H (14-36) U/L ALT 1199 H (4-34) U/L Alkaline Phosphatase 241 H (38-126) U/L Total Protein 5.0 L (6.3-8.2) g/dL Albumin 2.7 L (3.5-5.0) g/dL Procalcitonin (0.02-0.09) ng/mL Mycoplasma pneumon IgG (<=0.90) INDEX Crossmatch 08/25/20 08/25/20 08/25/20 Range/Units 16:42 16:46 17:17 WBC (3.8-10.6) k/uL RBC (3.80-5.40) m/uL Hgb (11.4-16.0) gm/dL Hct (34.0-46.0) % RDW (11.5-15.5) % Plt Count (150-450) k/uL Neutrophils # (Manual) (1.3-7.7) k/uL Monocytes # (Manual) (0-1.0) k/uL Metamyelocytes # (Man) (0) k/uL Myelocytes # (Manual) (0) k/uL Nucleated RBCs (0-0) /100 WBC PT 18.3 H (9.0-12.0) sec INR 1.9 H (<1.2) ABG pH 7.46 H (7.35-7.45) ABG pO2 67 L (83-108) mmHg ABG HCO3 27 H (21-25) mmol/L ABG Total CO2 29 H (19-24) mmol/L ABG O2 Saturation 93.5 L (94-97) % ABG Lactic Acid (0.5-1.6) mmol/L Sodium (137-145) mmol/L BUN (7-17) mg/dL Creatinine (0.52-1.04) mg/dL Glucose (74-99) mg/dL POC Glucose (mg/dL) 131 H (75-99) mg/dL Plasma Lactic Acid Garrett (0.7-2.0) mmol/L Calcium (8.4-10.2) mg/dL Total Bilirubin (0.2-1.3) mg/dL AST (14-36) U/L ALT (4-34) U/L Alkaline Phosphatase (38-126) U/L Total Protein (6.3-8.2) g/dL Albumin (3.5-5.0) g/dL Procalcitonin (0.02-0.09) ng/mL Mycoplasma pneumon IgG (<=0.90) INDEX Crossmatch 08/25/20 08/25/20 08/25/20 Range/Units 17:17 18:19 23:46 WBC (3.8-10.6) k/uL RBC (3.80-5.40) m/uL Hgb (11.4-16.0) gm/dL Hct (34.0-46.0) % RDW (11.5-15.5) % Plt Count (150-450) k/uL Neutrophils # (Manual) (1.3-7.7) k/uL Monocytes # (Manual) (0-1.0) k/uL Metamyelocytes # (Man) (0) k/uL Myelocytes # (Manual) (0) k/uL Nucleated RBCs (0-0) /100 WBC PT (9.0-12.0) sec INR (<1.2) ABG pH (7.35-7.45) ABG pO2 338 H (83-108) mmHg ABG HCO3 26 H (21-25) mmol/L ABG Total CO2 27 H (19-24) mmol/L ABG O2 Saturation 100.0 H (94-97) % ABG Lactic Acid 3.7 H* (0.5-1.6) mmol/L Sodium (137-145) mmol/L BUN (7-17) mg/dL Creatinine (0.52-1.04) mg/dL Glucose (74-99) mg/dL POC Glucose (mg/dL) 153 H (75-99) mg/dL Plasma Lactic Acid Garrett (0.7-2.0) mmol/L Calcium (8.4-10.2) mg/dL Total Bilirubin (0.2-1.3) mg/dL AST (14-36) U/L ALT (4-34) U/L Alkaline Phosphatase (38-126) U/L Total Protein (6.3-8.2) g/dL Albumin (3.5-5.0) g/dL Procalcitonin (0.02-0.09) ng/mL Mycoplasma pneumon IgG (<=0.90) INDEX Crossmatch 08/26/20 08/26/20 08/26/20 Range/Units 03:50 03:50 04:34 WBC 29.6 H (3.8-10.6) k/uL RBC 3.54 L (3.80-5.40) m/uL Hgb 10.8 L D (11.4-16.0) gm/dL Hct 32.6 L (34.0-46.0) % RDW (11.5-15.5) % Plt Count (150-450) k/uL Neutrophils # (Manual) 22.70 H (1.3-7.7) k/uL Monocytes # (Manual) 1.78 H (0-1.0) k/uL Metamyelocytes # (Man) 0.89 H (0) k/uL Myelocytes # (Manual) 0.59 H (0) k/uL Nucleated RBCs 5 H (0-0) /100 WBC PT (9.0-12.0) sec INR (<1.2) ABG pH (7.35-7.45) ABG pO2 (83-108) mmHg ABG HCO3 26 H (21-25) mmol/L ABG Total CO2 27 H (19-24) mmol/L ABG O2 Saturation 97.1 H (94-97) % ABG Lactic Acid (0.5-1.6) mmol/L Sodium 134 L (137-145) mmol/L BUN 40 H (7-17) mg/dL Creatinine 1.83 H (0.52-1.04) mg/dL Glucose 146 H (74-99) mg/dL POC Glucose (mg/dL) (75-99) mg/dL Plasma Lactic Acid Garrett (0.7-2.0) mmol/L Calcium 7.6 L (8.4-10.2) mg/dL Total Bilirubin 3.3 H (0.2-1.3) mg/dL AST 1067 H (14-36) U/L ALT 993 H (4-34) U/L Alkaline Phosphatase 251 H (38-126) U/L Total Protein 4.9 L (6.3-8.2) g/dL Albumin 2.5 L (3.5-5.0) g/dL Procalcitonin (0.02-0.09) ng/mL Mycoplasma pneumon IgG (<=0.90) INDEX Crossmatch 08/26/20 Range/Units 05:23 WBC (3.8-10.6) k/uL RBC (3.80-5.40) m/uL Hgb (11.4-16.0) gm/dL Hct (34.0-46.0) % RDW (11.5-15.5) % Plt Count (150-450) k/uL Neutrophils # (Manual) (1.3-7.7) k/uL Monocytes # (Manual) (0-1.0) k/uL Metamyelocytes # (Man) (0) k/uL Myelocytes # (Manual) (0) k/uL Nucleated RBCs (0-0) /100 WBC PT (9.0-12.0) sec INR (<1.2) ABG pH (7.35-7.45) ABG pO2 (83-108) mmHg ABG HCO3 (21-25) mmol/L ABG Total CO2 (19-24) mmol/L ABG O2 Saturation (94-97) % ABG Lactic Acid (0.5-1.6) mmol/L Sodium (137-145) mmol/L BUN (7-17) mg/dL Creatinine (0.52-1.04) mg/dL Glucose (74-99) mg/dL POC Glucose (mg/dL) 127 H (75-99) mg/dL Plasma Lactic Acid Garrett (0.7-2.0) mmol/L Calcium (8.4-10.2) mg/dL Total Bilirubin (0.2-1.3) mg/dL AST (14-36) U/L ALT (4-34) U/L Alkaline Phosphatase (38-126) U/L Total Protein (6.3-8.2) g/dL Albumin (3.5-5.0) g/dL Procalcitonin (0.02-0.09) ng/mL Mycoplasma pneumon IgG (<=0.90) INDEX Crossmatch Microbiology - Last 24 Hours (Table) 08/25/20 04:40 Blood Culture Gram Stain - Preliminary Blood 08/25/20 04:40 Blood Culture - Final Blood 08/24/20 05:00 Urine Culture - Final Urine,Voided 08/24/20 05:32 Blood Culture Gram Stain - Preliminary Blood Blood Culture - Preliminary Presumptive Staph aureus 08/24/20 05:40 Blood Culture Gram Stain - Preliminary Blood Blood Culture - Preliminary Presumptive Staph aureus 08/24/20 05:45 Gram Stain - Preliminary Chest Wound Culture - Preliminary Presumptive Staph aureus Assessment and Plan Assessment: Assessment #1 change in mental status #2 acute respiratory distress and status post intubation yesterday #3 hypotension Requiring norepinephrine #3 renal failure #4 sepsis #5 multiple comorbid conditions Plan #1 continue the current dose of metoprolol #2 continue monitor the kidney function and electrolytes #3 intensive care team is on the case #4 follow-up with the patient
--- NOTE | 2020-08-26 08:18 | P.PN ---
Subjective Progress Note Date: 08/26/20 Principal diagnosis: Shortness of breath, likely acute diastolic heart failure, bilateral pleural effusion, lactic acidosis, hypercapnic respiratory failure requiring BiPAP followed by mechanical ventilation, acute kidney injury, acute hyperkalemia, hyponatremia, acute transaminitis, hypotension requiring vasopressors use. Previous medical history of coronary artery disease with left main stenosis status post 2 vessel CABG on 08/10/2020 with expected postoperative acute blood loss anemia, hypotension, and urinary retention as well as candidal stomatititus, hyponatremia, pulmonary fibrosis, asthma, hypertension, hyperlipidemia, previous tobacco dependence, obesity, osteoarthritis, cervical stenosis post anterior cervical disc decompression, discectomy and fusion, TIA as a child, family history of premature coronary artery disease. Paroxysmal Afib w/ RVR The patient was seen and examined at the bedside in the ICU. Yesterday she was off BiPAP for the majority of the day on 15 L high flow nasal cannula, became more anxious and agitated, ABGs were drawn 7.46/39/67/27. Lactic acid 3.7. Repeat hemoglobin after 1 unit packed red blood cells given yesterday morning was 5.2 with hematocrit 16.7. Decision was made to intubate her and transfuse 2 units packed red blood cells. This morning she appears calm and comfortable on mechanical ventilation. She remains in sinus rhythm. Blood pressure is stable on IV Levophed. White blood cell count 29.6 with 6% bands, hemoglobin 10.8, chemistries appear slightly improved with sodium 134, potassium 3.7, BUN 40, creatinine 1.83, AST 1067, ALT 993, total bili 3.3. T-max 101.2, 99.3 this morning. Blood cultures and wound cultures still preliminary, gram stains demonstrating staph, urine culture negative, patient remains on daptomycin and cefepime per infectious disease. She did get hemodialysis the last 2 days with approximately 2 L being removed each day, plan is for hemodialysis again today. Family was updated yesterday numerous times by phone. Objective - Vital Signs Vital signs: Vital Signs Temp 99.3 F 08/26/20 04:00 Pulse 82 08/26/20 07:00 Resp 22 08/26/20 07:00 BP 120/53 08/26/20 07:00 Pulse Ox 96 08/26/20 06:45 Intake & Output 0208/26/20 08/26/20 18:59 06:59 18:59 Intake Total 2473.853 6302.986 Output Total 2260 215 Balance -358.515 2700.986 Weight 86.2 kg Intake: IV 873 832 .9 NS 90 Calcium Gluconate 1 gm In 100 Sodium Chloride 0.9% 100 ml @ 100 mls/hr IVPB ONCE ONE Rx#:[id number] Cefepime 1 gm In Sodium 50 Chloride 0.9% 50 ml @ 12. 5 mls/hr IVPB Q24H [facility] Rx #:[id number] Desmopressin Acetate 14 50 mcg In Sodium Chloride 0. 9% 50 ml @ 200 mls/hr IVPB ONCE ONE Rx#: [id number] Dextrose 5% in Water 1, 200 000 ml @ 50 mls/hr IV . Q23H TORIBIO with Sodium Bicarb (1 Meq/ml) 150 ml Rx#:[id number] Pressure Bag 33 12 Sodium Chloride 0.9% 1, 400 770 000 ml @ 50 mls/hr IV . Q20H [facility] Rx#:[id number] Intake, IV Titration 980.316 6708.986 Amount Norepinephrine 4 mg In 105.811 856.424 Sodium Chloride 0.9% 250 ml @ 0.05 MCG/KG/MIN 14. 973 mls/hr IV .[id number] [facility] Rx#:[id number] propofoL 500 mg In Empty 286.562 Bag 1 bag @ Titrate IV . Q0M [facility] Rx#:[id number] Blood Product 570 930 As-1 Unit 0 310 [id number] Rc Pheresis 2 As3 Unit 285 [id number] Pheresis As-3 Unit 310 [id number] Output: Urine 260 215 Hemodialysis 1999 Other: Voiding Method Indwelling Catheter Indwelling Catheter ABP, PAP, CO, CI - Last Documented Arterial Blood Pressure 153/92 - Constitutional Constitutional Comment(s): Appears comfortable, sedated on mechanical ventilation General appearance: Present: no acute distress - Respiratory Details: Lungs sounds coarse, diminished in the bases bilaterally. Respirations even, nonlabored on mechanical ventilation. Current vent settings FiO2 50%, tidal volume 450, respiratory rate 20, PEEP 5. ABGs this morning on those settings 7.43/39/87/26/97%/1.6. 7.5 ET tube present, 22 at the lip. - Cardiovascular Details: S1, S2 present. Regular rate and rhythm, sinus rhythm with heart rate in the 80s. Sternum stable. Palpable peripheral pulses bilaterally. Generalized edema present. Heart hugger, antiembolism stockings, SCDs present. Right femoral triple-lumen central line present. - Gastrointestinal Gastrointestinal Comment(s): Abdomen soft, nontender, nondistended. Hypoactive bowel sounds present 4 quadrants. OG tube present to low intermittent suction with minimal yellow drainage. - Genitourinary Genitourinary Comment(s): Yu present draining minimal yellow urine, 10-20 mL/hr. Right groin temporary dialysis catheter present - Integumentary Integumentary Comment(s): Anterior chest incision opened in the midportion approximated 2 cm, draining blood tinged yellow fluid, packed and covered with 4x4. Left lower extremity EV H site well approximated without redness or drainage, bruising present - Psychiatric Psychiatric Comment(s): Currently sedated with propofol on mechanical ventilation - Allied health notes Allied health notes reviewed: nursing - Labs CBC & Chem 7: 08/26/20 03:50 08/26/20 03:50 Labs: Abnormal Lab Results - Last 24 Hours (Table) 08/23/20 08/24/20 08/24/20 Range/Units 00:16 04:02 05:32 WBC (3.8-10.6) k/uL RBC (3.80-5.40) m/uL Hgb (11.4-16.0) gm/dL Hct (34.0-46.0) % RDW (11.5-15.5) % Plt Count (150-450) k/uL Neutrophils # (Manual) (1.3-7.7) k/uL Monocytes # (Manual) (0-1.0) k/uL Metamyelocytes # (Man) (0) k/uL Myelocytes # (Manual) (0) k/uL Nucleated RBCs (0-0) /100 WBC PT (9.0-12.0) sec INR (<1.2) ABG pH 7.08 L* (7.35-7.45) ABG pO2 (83-108) mmHg ABG HCO3 (21-25) mmol/L ABG Total CO2 (19-24) mmol/L ABG O2 Saturation (94-97) % ABG Lactic Acid (0.5-1.6) mmol/L Sodium (137-145) mmol/L BUN (7-17) mg/dL Creatinine (0.52-1.04) mg/dL Glucose (74-99) mg/dL POC Glucose (mg/dL) (75-99) mg/dL Plasma Lactic Acid Garrett (0.7-2.0) mmol/L Calcium (8.4-10.2) mg/dL Total Bilirubin (0.2-1.3) mg/dL AST (14-36) U/L ALT (4-34) U/L Alkaline Phosphatase (38-126) U/L Total Protein (6.3-8.2) g/dL Albumin (3.5-5.0) g/dL Procalcitonin 16.57 H (0.02-0.09) ng/mL Mycoplasma pneumon IgG (<=0.90) INDEX Crossmatch See Detail 08/24/20 08/25/20 08/25/20 Range/Units 17:36 09:42 09:52 WBC (3.8-10.6) k/uL RBC (3.80-5.40) m/uL Hgb (11.4-16.0) gm/dL Hct (34.0-46.0) % RDW (11.5-15.5) % Plt Count (150-450) k/uL Neutrophils # (Manual) (1.3-7.7) k/uL Monocytes # (Manual) (0-1.0) k/uL Metamyelocytes # (Man) (0) k/uL Myelocytes # (Manual) (0) k/uL Nucleated RBCs (0-0) /100 WBC PT (9.0-12.0) sec INR (<1.2) ABG pH 7.47 H (7.35-7.45) ABG pO2 74 L (83-108) mmHg ABG HCO3 29 H (21-25) mmol/L ABG Total CO2 31 H (19-24) mmol/L ABG O2 Saturation (94-97) % ABG Lactic Acid (0.5-1.6) mmol/L Sodium (137-145) mmol/L BUN (7-17) mg/dL Creatinine (0.52-1.04) mg/dL Glucose (74-99) mg/dL POC Glucose (mg/dL) (75-99) mg/dL Plasma Lactic Acid Garrett 2.9 H* (0.7-2.0) mmol/L Calcium (8.4-10.2) mg/dL Total Bilirubin (0.2-1.3) mg/dL AST (14-36) U/L ALT (4-34) U/L Alkaline Phosphatase (38-126) U/L Total Protein (6.3-8.2) g/dL Albumin (3.5-5.0) g/dL Procalcitonin (0.02-0.09) ng/mL Mycoplasma pneumon IgG 1.65 H (<=0.90) INDEX Crossmatch 08/25/20 08/25/20 08/25/20 Range/Units 16:40 16:40 16:42 WBC 14.6 H (3.8-10.6) k/uL RBC 1.80 L (3.80-5.40) m/uL Hgb 5.2 L* (11.4-16.0) gm/dL Hct 16.7 L* (34.0-46.0) % RDW 15.6 H (11.5-15.5) % Plt Count 133 L (150-450) k/uL Neutrophils # (Manual) 12.50 H (1.3-7.7) k/uL Monocytes # (Manual) (0-1.0) k/uL Metamyelocytes # (Man) 0.29 H (0) k/uL Myelocytes # (Manual) 0.15 H (0) k/uL Nucleated RBCs 3 H (0-0) /100 WBC PT (9.0-12.0) sec INR (<1.2) ABG pH (7.35-7.45) ABG pO2 (83-108) mmHg ABG HCO3 (21-25) mmol/L ABG Total CO2 (19-24) mmol/L ABG O2 Saturation (94-97) % ABG Lactic Acid (0.5-1.6) mmol/L Sodium (137-145) mmol/L BUN 27 H (7-17) mg/dL Creatinine 1.94 H (0.52-1.04) mg/dL Glucose 124 H (74-99) mg/dL POC Glucose (mg/dL) 131 H (75-99) mg/dL Plasma Lactic Acid Garrett (0.7-2.0) mmol/L Calcium 7.9 L (8.4-10.2) mg/dL Total Bilirubin 3.3 H (0.2-1.3) mg/dL AST 1638 H (14-36) U/L ALT 1199 H (4-34) U/L Alkaline Phosphatase 241 H (38-126) U/L Total Protein 5.0 L (6.3-8.2) g/dL Albumin 2.7 L (3.5-5.0) g/dL Procalcitonin (0.02-0.09) ng/mL Mycoplasma pneumon IgG (<=0.90) INDEX Crossmatch 08/25/20 08/25/20 08/25/20 Range/Units 16:46 17:17 17:17 WBC (3.8-10.6) k/uL RBC (3.80-5.40) m/uL Hgb (11.4-16.0) gm/dL Hct (34.0-46.0) % RDW (11.5-15.5) % Plt Count (150-450) k/uL Neutrophils # (Manual) (1.3-7.7) k/uL Monocytes # (Manual) (0-1.0) k/uL Metamyelocytes # (Man) (0) k/uL Myelocytes # (Manual) (0) k/uL Nucleated RBCs (0-0) /100 WBC PT 18.3 H (9.0-12.0) sec INR 1.9 H (<1.2) ABG pH 7.46 H (7.35-7.45) ABG pO2 67 L (83-108) mmHg ABG HCO3 27 H (21-25) mmol/L ABG Total CO2 29 H (19-24) mmol/L ABG O2 Saturation 93.5 L (94-97) % ABG Lactic Acid 3.7 H* (0.5-1.6) mmol/L Sodium (137-145) mmol/L BUN (7-17) mg/dL Creatinine (0.52-1.04) mg/dL Glucose (74-99) mg/dL POC Glucose (mg/dL) (75-99) mg/dL Plasma Lactic Acid Garrett (0.7-2.0) mmol/L Calcium (8.4-10.2) mg/dL Total Bilirubin (0.2-1.3) mg/dL AST (14-36) U/L ALT (4-34) U/L Alkaline Phosphatase (38-126) U/L Total Protein (6.3-8.2) g/dL Albumin (3.5-5.0) g/dL Procalcitonin (0.02-0.09) ng/mL Mycoplasma pneumon IgG (<=0.90) INDEX Crossmatch 08/25/20 08/25/20 08/26/20 Range/Units 18:19 23:46 03:50 WBC 29.6 H (3.8-10.6) k/uL RBC 3.54 L (3.80-5.40) m/uL Hgb 10.8 L D (11.4-16.0) gm/dL Hct 32.6 L (34.0-46.0) % RDW (11.5-15.5) % Plt Count (150-450) k/uL Neutrophils # (Manual) 22.70 H (1.3-7.7) k/uL Monocytes # (Manual) 1.78 H (0-1.0) k/uL Metamyelocytes # (Man) 0.89 H (0) k/uL Myelocytes # (Manual) 0.59 H (0) k/uL Nucleated RBCs 5 H (0-0) /100 WBC PT (9.0-12.0) sec INR (<1.2) ABG pH (7.35-7.45) ABG pO2 338 H (83-108) mmHg ABG HCO3 26 H (21-25) mmol/L ABG Total CO2 27 H (19-24) mmol/L ABG O2 Saturation 100.0 H (94-97) % ABG Lactic Acid (0.5-1.6) mmol/L Sodium (137-145) mmol/L BUN (7-17) mg/dL Creatinine (0.52-1.04) mg/dL Glucose (74-99) mg/dL POC Glucose (mg/dL) 153 H (75-99) mg/dL Plasma Lactic Acid Garrett (0.7-2.0) mmol/L Calcium (8.4-10.2) mg/dL Total Bilirubin (0.2-1.3) mg/dL AST (14-36) U/L ALT (4-34) U/L Alkaline Phosphatase (38-126) U/L Total Protein (6.3-8.2) g/dL Albumin (3.5-5.0) g/dL Procalcitonin (0.02-0.09) ng/mL Mycoplasma pneumon IgG (<=0.90) INDEX Crossmatch 08/26/20 08/26/20 08/26/20 Range/Units 03:50 04:34 05:23 WBC (3.8-10.6) k/uL RBC (3.80-5.40) m/uL Hgb (11.4-16.0) gm/dL Hct (34.0-46.0) % RDW (11.5-15.5) % Plt Count (150-450) k/uL Neutrophils # (Manual) (1.3-7.7) k/uL Monocytes # (Manual) (0-1.0) k/uL Metamyelocytes # (Man) (0) k/uL Myelocytes # (Manual) (0) k/uL Nucleated RBCs (0-0) /100 WBC PT (9.0-12.0) sec INR (<1.2) ABG pH (7.35-7.45) ABG pO2 (83-108) mmHg ABG HCO3 26 H (21-25) mmol/L ABG Total CO2 27 H (19-24) mmol/L ABG O2 Saturation 97.1 H (94-97) % ABG Lactic Acid (0.5-1.6) mmol/L Sodium 134 L (137-145) mmol/L BUN 40 H (7-17) mg/dL Creatinine 1.83 H (0.52-1.04) mg/dL Glucose 146 H (74-99) mg/dL POC Glucose (mg/dL) 127 H (75-99) mg/dL Plasma Lactic Acid Garrett (0.7-2.0) mmol/L Calcium 7.6 L (8.4-10.2) mg/dL Total Bilirubin 3.3 H (0.2-1.3) mg/dL AST 1067 H (14-36) U/L ALT 993 H (4-34) U/L Alkaline Phosphatase 251 H (38-126) U/L Total Protein 4.9 L (6.3-8.2) g/dL Albumin 2.5 L (3.5-5.0) g/dL Procalcitonin (0.02-0.09) ng/mL Mycoplasma pneumon IgG (<=0.90) INDEX Crossmatch Microbiology - Last 24 Hours (Table) 08/25/20 04:40 Blood Culture Gram Stain - Preliminary Blood 08/25/20 04:40 Blood Culture - Final Blood 08/24/20 05:00 Urine Culture - Final Urine,Voided 08/24/20 05:32 Blood Culture Gram Stain - Preliminary Blood Blood Culture - Preliminary Presumptive Staph aureus 08/24/20 05:40 Blood Culture Gram Stain - Preliminary Blood Blood Culture - Preliminary Presumptive Staph aureus 08/24/20 05:45 Gram Stain - Preliminary Chest Wound Culture - Preliminary Presumptive Staph aureus - Imaging and Cardiology Chest x-ray: image reviewed Assessment and Plan Assessment: 1. Shortness of breath, likely acute diastolic heart failure, EF 55-60% on current TTE, bilateral pleural effusions 2. Lactic acidosis, septic shock, preliminary blood cultures presumptive staph 3. Hypercapnic, hypoxic respiratory failure requiring BiPAP, with subsequent intubation and mechanical ventilation 4. Open sternal wound, surgically created, preliminary gram stain positive for staph 5. Acute kidney injury, metabolic acidosis 6. Acute hyperkalemia 7. Acute transaminitis 8. Hypotension requiring vasopressors 9. Acute anemia, post transfusion PRBCs, on , received DDAVP yesterday 10. Coronary artery disease with left main stenosis status post 2 vessel CABG on 08/10/2020 with expected postoperative acute blood loss anemia, hypotension, and urinary retention as well as candidal stomatititus 11. Hyponatremia 12. Pulmonary fibrosis, asthma 13. History of hypertension 14. Hyperlipidemia, treated 15. Previous tobacco dependence 16. Obesity 17. Paroxysmal afib w/ RVR Plan: 1. Ventilator management per pulmonary medicine 2. Nephrology consulted, appreciate recommendations, avoid nephrotoxins, HD per nephro 3. Infectious disease consulted, appreciate recommendations, final blood cultures/sternal wound cultures pending, preliminary positive for staph, continue antibiotics 4. Continue aspirin, statin, Plavix. Restart beta sisi at low dose. Avoid amio 2/2 transaminitis. Keep SBP 120-140 for perfusion of organs. Wean levo as tolerated 5. Will monitor daily labs and x-rays, ABGs. 6. Continue sternal precautions 7. GI/DVT prophylaxis 8. Continue sternal dressing change w/ packing daily and PRN. Likely will need wound VAC 9. Will update family daily 10. More recommendations to follow Time with Patient: Greater than 30
[2020-08-26] MEDS: METOPROLOL TARTRATE 25 MG TAB PO SCH ×2 (09:00→15:33)
[2020-08-26] MEDS: ASPIRIN 325 MG TAB PO SCH (09:01)
[2020-08-26] MEDS: DRY MOUTH SPRAY 44.3 SPRAY/44.3 ML SPRAY MUCOUS MEM SCH ×4 (09:01→20:09)
[2020-08-26] MEDS: HEPARIN SODIUM,PORCINE 5,000 UNIT/ML 1 ML VIAL SQ SCH ×2 (09:01→15:33)
[2020-08-26] MEDS: MIDODRINE 5 MG TAB PO SCH ×3 (09:01→20:09)
[2020-08-26] MEDS: CLOPIDOGREL 75 MG TAB PO SCH (09:01)
[2020-08-26] MEDS: PANTOPRAZOLE 40 MG/10 ML VIAL IVP SCH (09:01)
[2020-08-26] MEDS: CHLORHEXIDINE GLUCONATE 15 ML CUP MUCOUS MEM SCH ×2 (09:01→20:09)
--- NOTE | 2020-08-26 09:10 | XR ---
EXAMINATION TYPE: XR chest 1V portable DATE OF EXAM: 08/26/2020 COMPARISON: 08/25/2020 HISTORY: Tube placement TECHNIQUE: Single frontal view of the chest is obtained. FINDINGS: ET and NG tube stable. Postsurgical changes. Arthropathy of the shoulders. Diffuse bilater al pleural-parenchymal changes. Hypertrophic and degenerative change of the spine. Lucency seen exten ding along the left paraspinal line. IMPRESSION: Diffuse bilateral pleural-parenchymal changes which appear to demonstrate progression on the left.. Lucency along the left chest noted appears to correspond to the patient's open surgical w ound by recent CT scan.
--- NOTE | 2020-08-26 09:13 | P.PN ---
Subjective Patient is seen in follow for acute kidney injury and hyperkalemia. Started on hemodialysis August 24. Tolerated 2 L ultrafiltration yesterday. Currently on about 14 mics of Levophed. Hemoglobin was down to 5.2 yesterday and she has received 3 units of blood so far. Hemoglobin 10.8 today. No active bleeding prisoners. Urine output 15-20 mL an hour. Vital signs are stable. Currently on Levophed. General: The patient appeared well nourished and normally developed. HEENT: Intubated. LUNGS: Breath sounds decreased. HEART: Rate and Rhythm are regular. ABDOMEN: Soft, nontender. EXTREMITITES: Trace edema. Objective - Vital Signs Vital signs: Vital Signs Temp 99.9 F H 08/26/20 08:00 Pulse 86 08/26/20 08:00 Resp 20 08/26/20 08:00 BP 126/55 08/26/20 08:00 Pulse Ox 96 08/26/20 08:00 Intake & Output 08/25/20 08/26/20 08/26/20 18:59 06:59 18:59 Intake Total 3119.879 5445.986 63 Output Total 2260 215 20 Balance -420.903 1693.986 43 Weight 86.2 kg Intake: IV 873 832 63 .9 NS 90 Calcium Gluconate 1 gm In 100 Sodium Chloride 0.9% 100 ml @ 100 mls/hr IVPB ONCE ONE Rx#:[id number] Cefepime 1 gm In Sodium 50 Chloride 0.9% 50 ml @ 12. 5 mls/hr IVPB Q24H TORIBIO Rx #:[id number] Desmopressin Acetate 14 50 mcg In Sodium Chloride 0. 9% 50 ml @ 200 mls/hr IVPB ONCE ONE Rx#: [id number] Dextrose 5% in Water 1, 200 000 ml @ 50 mls/hr IV . Q23H TORIBIO with Sodium Bicarb (1 Meq/ml) 150 ml Rx#:[id number] Pressure Bag 33 12 3 Sodium Chloride 0.9% 1, 400 770 60 000 ml @ 50 mls/hr IV . Q20H TORIBIO Rx#:[id number] Intake, IV Titration 255.666 4406.986 Amount Norepinephrine 4 mg In 105.811 856.424 Sodium Chloride 0.9% 250 ml @ 0.05 MCG/KG/MIN 14. 973 mls/hr IV .[id number] TORIBIO Rx#:[id number] propofoL 500 mg In Empty 286.562 Bag 1 bag @ Titrate IV . Q0M TORIBIO Rx#:[id number] Blood Product 570 930 Rc As-1 Unit 0 310 [id number] Rc Pheresis 2 As3 Unit 285 [id number] Rc Pheresis As-3 Unit 310 [id number] Output: Urine 260 215 20 Hemodialysis 1999 Other: Voiding Method Indwelling Catheter Indwelling Catheter ABP, PAP, CO, CI - Last Documented Arterial Blood Pressure 153/92 - Labs CBC & Chem 7: 08/26/20 03:50 08/26/20 03:50 Labs: Abnormal Lab Results - Last 24 Hours (Table) 08/23/20 08/24/20 08/24/20 Range/Units 00:16 04:02 05:32 WBC (3.8-10.6) k/uL RBC (3.80-5.40) m/uL Hgb (11.4-16.0) gm/dL Hct (34.0-46.0) % RDW (11.5-15.5) % Plt Count (150-450) k/uL Neutrophils # (Manual) (1.3-7.7) k/uL Monocytes # (Manual) (0-1.0) k/uL Metamyelocytes # (Man) (0) k/uL Myelocytes # (Manual) (0) k/uL Nucleated RBCs (0-0) /100 WBC PT (9.0-12.0) sec INR (<1.2) ABG pH 7.08 L* (7.35-7.45) ABG pO2 (83-108) mmHg ABG HCO3 (21-25) mmol/L ABG Total CO2 (19-24) mmol/L ABG O2 Saturation (94-97) % ABG Lactic Acid (0.5-1.6) mmol/L Sodium (137-145) mmol/L BUN (7-17) mg/dL Creatinine (0.52-1.04) mg/dL Glucose (74-99) mg/dL POC Glucose (mg/dL) (75-99) mg/dL Plasma Lactic Acid Garrett (0.7-2.0) mmol/L Calcium (8.4-10.2) mg/dL Total Bilirubin (0.2-1.3) mg/dL AST (14-36) U/L ALT (4-34) U/L Alkaline Phosphatase (38-126) U/L Total Protein (6.3-8.2) g/dL Albumin (3.5-5.0) g/dL Procalcitonin 16.57 H (0.02-0.09) ng/mL Mycoplasma pneumon IgG (<=0.90) INDEX Crossmatch See Detail 08/24/20 08/25/20 08/25/20 Range/Units 17:36 09:42 09:52 WBC (3.8-10.6) k/uL RBC (3.80-5.40) m/uL Hgb (11.4-16.0) gm/dL Hct (34.0-46.0) % RDW (11.5-15.5) % Plt Count (150-450) k/uL Neutrophils # (Manual) (1.3-7.7) k/uL Monocytes # (Manual) (0-1.0) k/uL Metamyelocytes # (Man) (0) k/uL Myelocytes # (Manual) (0) k/uL Nucleated RBCs (0-0) /100 WBC PT (9.0-12.0) sec INR (<1.2) ABG pH 7.47 H (7.35-7.45) ABG pO2 74 L (83-108) mmHg ABG HCO3 29 H (21-25) mmol/L ABG Total CO2 31 H (19-24) mmol/L ABG O2 Saturation (94-97) % ABG Lactic Acid (0.5-1.6) mmol/L Sodium (137-145) mmol/L BUN (7-17) mg/dL Creatinine (0.52-1.04) mg/dL Glucose (74-99) mg/dL POC Glucose (mg/dL) (75-99) mg/dL Plasma Lactic Acid Garrett 2.9 H* (0.7-2.0) mmol/L Calcium (8.4-10.2) mg/dL Total Bilirubin (0.2-1.3) mg/dL AST (14-36) U/L ALT (4-34) U/L Alkaline Phosphatase (38-126) U/L Total Protein (6.3-8.2) g/dL Albumin (3.5-5.0) g/dL Procalcitonin (0.02-0.09) ng/mL Mycoplasma pneumon IgG 1.65 H (<=0.90) INDEX Crossmatch 08/25/20 08/25/20 08/25/20 Range/Units 16:40 16:40 16:42 WBC 14.6 H (3.8-10.6) k/uL RBC 1.80 L (3.80-5.40) m/uL Hgb 5.2 L* (11.4-16.0) gm/dL Hct 16.7 L* (34.0-46.0) % RDW 15.6 H (11.5-15.5) % Plt Count 133 L (150-450) k/uL Neutrophils # (Manual) 12.50 H (1.3-7.7) k/uL Monocytes # (Manual) (0-1.0) k/uL Metamyelocytes # (Man) 0.29 H (0) k/uL Myelocytes # (Manual) 0.15 H (0) k/uL Nucleated RBCs 3 H (0-0) /100 WBC PT (9.0-12.0) sec INR (<1.2) ABG pH (7.35-7.45) ABG pO2 (83-108) mmHg ABG HCO3 (21-25) mmol/L ABG Total CO2 (19-24) mmol/L ABG O2 Saturation (94-97) % ABG Lactic Acid (0.5-1.6) mmol/L Sodium (137-145) mmol/L BUN 27 H (7-17) mg/dL Creatinine 1.94 H (0.52-1.04) mg/dL Glucose 124 H (74-99) mg/dL POC Glucose (mg/dL) 131 H (75-99) mg/dL Plasma Lactic Acid Garrett (0.7-2.0) mmol/L Calcium 7.9 L (8.4-10.2) mg/dL Total Bilirubin 3.3 H (0.2-1.3) mg/dL AST 1638 H (14-36) U/L ALT 1199 H (4-34) U/L Alkaline Phosphatase 241 H (38-126) U/L Total Protein 5.0 L (6.3-8.2) g/dL Albumin 2.7 L (3.5-5.0) g/dL Procalcitonin (0.02-0.09) ng/mL Mycoplasma pneumon IgG (<=0.90) INDEX Crossmatch 08/25/20 08/25/20 08/25/20 Range/Units 16:46 17:17 17:17 WBC (3.8-10.6) k/uL RBC (3.80-5.40) m/uL Hgb (11.4-16.0) gm/dL Hct (34.0-46.0) % RDW (11.5-15.5) % Plt Count (150-450) k/uL Neutrophils # (Manual) (1.3-7.7) k/uL Monocytes # (Manual) (0-1.0) k/uL Metamyelocytes # (Man) (0) k/uL Myelocytes # (Manual) (0) k/uL Nucleated RBCs (0-0) /100 WBC PT 18.3 H (9.0-12.0) sec INR 1.9 H (<1.2) ABG pH 7.46 H (7.35-7.45) ABG pO2 67 L (83-108) mmHg ABG HCO3 27 H (21-25) mmol/L ABG Total CO2 29 H (19-24) mmol/L ABG O2 Saturation 93.5 L (94-97) % ABG Lactic Acid 3.7 H* (0.5-1.6) mmol/L Sodium (137-145) mmol/L BUN (7-17) mg/dL Creatinine (0.52-1.04) mg/dL Glucose (74-99) mg/dL POC Glucose (mg/dL) (75-99) mg/dL Plasma Lactic Acid Garrett (0.7-2.0) mmol/L Calcium (8.4-10.2) mg/dL Total Bilirubin (0.2-1.3) mg/dL AST (14-36) U/L ALT (4-34) U/L Alkaline Phosphatase (38-126) U/L Total Protein (6.3-8.2) g/dL Albumin (3.5-5.0) g/dL Procalcitonin (0.02-0.09) ng/mL Mycoplasma pneumon IgG (<=0.90) INDEX Crossmatch 08/25/20 08/25/20 08/26/20 Range/Units 18:19 23:46 03:50 WBC 29.6 H (3.8-10.6) k/uL RBC 3.54 L (3.80-5.40) m/uL Hgb 10.8 L D (11.4-16.0) gm/dL Hct 32.6 L (34.0-46.0) % RDW (11.5-15.5) % Plt Count (150-450) k/uL Neutrophils # (Manual) 22.70 H (1.3-7.7) k/uL Monocytes # (Manual) 1.78 H (0-1.0) k/uL Metamyelocytes # (Man) 0.89 H (0) k/uL Myelocytes # (Manual) 0.59 H (0) k/uL Nucleated RBCs 5 H (0-0) /100 WBC PT (9.0-12.0) sec INR (<1.2) ABG pH (7.35-7.45) ABG pO2 338 H (83-108) mmHg ABG HCO3 26 H (21-25) mmol/L ABG Total CO2 27 H (19-24) mmol/L ABG O2 Saturation 100.0 H (94-97) % ABG Lactic Acid (0.5-1.6) mmol/L Sodium (137-145) mmol/L BUN (7-17) mg/dL Creatinine (0.52-1.04) mg/dL Glucose (74-99) mg/dL POC Glucose (mg/dL) 153 H (75-99) mg/dL Plasma Lactic Acid Garrett (0.7-2.0) mmol/L Calcium (8.4-10.2) mg/dL Total Bilirubin (0.2-1.3) mg/dL AST (14-36) U/L ALT (4-34) U/L Alkaline Phosphatase (38-126) U/L Total Protein (6.3-8.2) g/dL Albumin (3.5-5.0) g/dL Procalcitonin (0.02-0.09) ng/mL Mycoplasma pneumon IgG (<=0.90) INDEX Crossmatch 08/26/20 08/26/20 08/26/20 Range/Units 03:50 04:34 05:23 WBC (3.8-10.6) k/uL RBC (3.80-5.40) m/uL Hgb (11.4-16.0) gm/dL Hct (34.0-46.0) % RDW (11.5-15.5) % Plt Count (150-450) k/uL Neutrophils # (Manual) (1.3-7.7) k/uL Monocytes # (Manual) (0-1.0) k/uL Metamyelocytes # (Man) (0) k/uL Myelocytes # (Manual) (0) k/uL Nucleated RBCs (0-0) /100 WBC PT (9.0-12.0) sec INR (<1.2) ABG pH (7.35-7.45) ABG pO2 (83-108) mmHg ABG HCO3 26 H (21-25) mmol/L ABG Total CO2 27 H (19-24) mmol/L ABG O2 Saturation 97.1 H (94-97) % ABG Lactic Acid (0.5-1.6) mmol/L Sodium 134 L (137-145) mmol/L BUN 40 H (7-17) mg/dL Creatinine 1.83 H (0.52-1.04) mg/dL Glucose 146 H (74-99) mg/dL POC Glucose (mg/dL) 127 H (75-99) mg/dL Plasma Lactic Acid Garrett (0.7-2.0) mmol/L Calcium 7.6 L (8.4-10.2) mg/dL Total Bilirubin 3.3 H (0.2-1.3) mg/dL AST 1067 H (14-36) U/L ALT 993 H (4-34) U/L Alkaline Phosphatase 251 H (38-126) U/L Total Protein 4.9 L (6.3-8.2) g/dL Albumin 2.5 L (3.5-5.0) g/dL Procalcitonin (0.02-0.09) ng/mL Mycoplasma pneumon IgG (<=0.90) INDEX Crossmatch Microbiology - Last 24 Hours (Table) 08/25/20 04:40 Blood Culture Gram Stain - Preliminary Blood 08/25/20 04:40 Blood Culture - Final Blood 08/24/20 05:00 Urine Culture - Final Urine,Voided 08/24/20 05:32 Blood Culture Gram Stain - Preliminary Blood Blood Culture - Preliminary Presumptive Staph aureus 08/24/20 05:40 Blood Culture Gram Stain - Preliminary Blood Blood Culture - Preliminary Presumptive Staph aureus 08/24/20 05:45 Gram Stain - Preliminary Chest Wound Culture - Preliminary Presumptive Staph aureus Assessment and Plan Plan: Assessment: 1. Acute kidney injury secondary to ATN secondary to hypotension and cardiorenal syndrome. Baseline creatinine near 1 from earlier this month and peaked at 3.15 this admission. Started on hemodialysis August 24. 2. Hyperkalemia secondary to potassium supplementation, losartan, acute kidney injury as well as severe acidosis. Improved postdialysis. 3. Metabolic acidosis secondary to acute kidney injury. Status post bicarb drip. Resolved. 4. Hypervolemic hyponatremia. Improved with ultrafiltration. 5. Wound dehiscence of the sternum. On antibiotics. CTS is following. Wound culture positive for staph aureus. Blood culture also positive for staph aureus. 6. Acute hypoxia respiratory failure. 7. Status post CABG in 08/10/2020. 8. Volume overload. Improving with ultrafiltration. 9. Acute blood loss anemia status post 3 units of blood transfusion. No active bleeding. Also received a dose of DDAVP August 25. Maintained on Aranesp. Plan: Third treatment of hemodialysis today. Lasix 80 mg IV once this afternoon. Continue to monitor renal function and urine output. Wean FiO2 and vasopressors. Phosphorus normal.
[2020-08-26 11:59] LABS: Glucose,Whole Blood 104 mg/dL (75-99)
[2020-08-26 12:25] LABS: Glucose,Whole Blood 93 mg/dL (75-99)
[2020-08-26] MEDS: ASCORBIC ACID 500 MG TAB PO SCH (12:35)
[2020-08-26] MEDS: LIDOCAINE 5% PATCH TOPICAL SCH (12:35)
[2020-08-26] MEDS: FERROUS SULFATE 325 MG TAB PO SCH (12:35)
--- NOTE | 2020-08-26 13:08 | P.PN ---
Subjective Progress Note Date: 08/26/20 Principal diagnosis: Acute hypoxic and hypercapnic respiratory failure secondary to sepsis and septic shock. This is a 75-year-old female with history of coronary artery disease, had recent left main stenosis and she underwent two-vessel CABG with HOLLAND to LAD, and saphenous vein graft to obtuse marginal on 08/10/2020. Patient was seen by us postoperatively on consultation, and she was eventually discharged. Her other medical problems include history of hyponatremia, pulmonary fibrosis, hypertension, dyslipidemia, [id number] smoking history, cervical stenosis and previous surgical disc disease, history of decompression and fusion. Patient was brought into the ER on 08/22/2020, and she was complaining of shortness of breath, patient was hypoxic and she was noted to have O2 saturation in the 80s. Chest x-ray showed evidence of pulmonary edema with bilateral pleural effusions, and patient was treated mostly with diuretics. However over the last 2 days, patient deteriorated, shortness of breath became worse, and today the patient was extremely dyspneic, chest x-ray was getting worse, patient was hypotensive, required fluid boluses, and I was notified about this patient early this morning, advised immediate transfer to the ICU, patient was placed on BiPAP, patient was also seen by nephrology, and her urine output is extremely poor, patient received fluid boluses for hypotension, in the meantime the patient was noted to have significant purulent drainage from her sternal incision site, and she clearly has wound dehiscence and sternal wound infection. Recommended broad-spectrum antibiotics on this patient, started on vancomycin and cefepime, patient was seen by infectious disease on consultation, she was also seen by nephrology planning hemodialysis, and vascular surgery saw the patient and placed a dialysis catheter. In the meantime patient was placed on BiPAP, she received fluids and pressors. I placed a central line in this patient an arterial line. Chest x-ray clearly shows evidence of bilateral interstitial edema. Patient was reevaluated today on 08/25/2020, remains in the ICU, she was on BiPAP earlier today, presently on high flow nasal cannula at 15 L/m. Yesterday she was on BiPAP 12/6 and 60% FiO2 this was overnight. Patient is off pressors, and this morning I stopped her sodium bicarb based on her ABG and based on her bicarb level as well as her electrolytes. Patient is getting hemodialysis again today, she had 2.2 L removed yesterday, and she would likely have the same this morning. Patient is awake, and bit dyspneic, anxious, agitated, chest x-ray continues to show evidence of pulmonary edema. Her sternal wound dehiscence seems to be significant, continues to have some purulent drainage, and that is being addressed by thoracic surgery on the case. Cultures from the sternal wound came back positive for gram-positive cocci in clusters, seen by infectious disease and she was transitioned to daptomycin instead of vancomycin. Hemoglobin is noted to be a bit low today, and I have ordered 1 unit of packed RBCs to be given. IV fluid is at 1 50 mL/h. Sodium bicarb is discontinued. Calcium gluconate was given for low calcium today. ABG showed a pO2 of 74 pCO2 of 40 pH of 7.47 and this was on a 15 L high flow nasal cannula. Hemoglobin is 6.5, and she will receive a unit of packed RBCs today. Electrolytes are normal BUN is 43 creatinine 2.79 Patient was reevaluated today on 08/26/2020, her clinical status deteriorated yesterday, patient was getting extremely agitated, restless, tachypneic tachycardic, she had a relatively normal ABG but based on her clinical picture, I recommended intubation and mechanical ventilation. She is now ventilated on assist control rate of 20 tablets volume is 450 FiO2 is 50% and PEEP is at 5. ABG showed a pO2 of 87 pCO2 of 39 pH of 7.43. She is on multiple drips inc luding IV fluid/0.9 normal saline at 50 mL per hour. Norepinephrine at 0.15 mcg/kg/m, propofol at 50 mcg/kg/m. Patient is being dialyzed and she is presently undergoing dialysis. Yesterday she had about 2 L off with dialysis. Patient is intermittently in A. fib with RVR. Presently in sinus rhythm. Her hemoglobin was noted to be low, received a total of 3 units of packed RBCs since yesterday. Hemoglobin today is 10.8. Patient was seen by infectious disease on consultation, and she was placed on cefepime and daptomycin replacing vancomycin, this is mostly for her presentation of sepsis and septic shock with sternal wound infection. The sternal wound is being addressed and cleaned by t horacic surgery on the case, patient may require surgical intervention may also require wound VAC. Blood cultures from 08/25 are positive for presumptive staph aureus. Wound cultures from the sternal wound, methicillin sensitive staph aureus. Urine cultures are negative so far. Yearly the patient started out of the sternal wound infection with MSSA, went on to develop sepsis, septic shock, and MSSA bacteremia. Hence we'll hold on any PICC line placement at this point, and we'll continue to use the central line Objective - Vital Signs Vital signs: Vital Signs Temp 98.7 F 08/26/20 12:00 Pulse 86 08/26/20 12:47 Resp 23 08/26/20 12:47 BP 121/55 08/26/20 12:47 Pulse Ox 98 08/26/20 12:00 Intake & Output 08/25/20 08/26/20 08/26/20 18:59 06:59 18:59 Intake Total 9612.681 8747.986 486.979 Output Total 2260 215 2600 Balance -143.909 4467.986 -2113.021 Weight 86.2 kg 86.2 kg Intake: IV 873 832 140 .9 NS 90 Calcium Gluconate 1 gm In 100 Sodium Chloride 0.9% 100 ml @ 100 mls/hr IVPB ONCE ONE Rx#:[id number] Cefepime 1 gm In Sodium 50 Chloride 0.9% 50 ml @ 12. 5 mls/hr IVPB Q24H TORIBIO Rx #:[id number] Desmopressin Acetate 14 50 mcg In Sodium Chloride 0. 9% 50 ml @ 200 mls/hr IVPB ONCE ONE Rx#: [id number] Dextrose 5% in Water 1, 200 000 ml @ 50 mls/hr IV . Q23H TOR[facility]IO with Sodium Bicarb (1 Meq/ml) 150 ml Rx#:[id number] Pressure Bag 33 12 Sodium Chloride 0.9% 1, 400 770 140 000 ml @ 20 mls/hr IV . Q24H TORIBIO Rx#:[id number] Intake, IV Titration 627.063 6097.986 346.979 Amount Norepinephrine 4 mg In 105.811 856.424 261.534 Sodium Chloride 0.9% 250 ml @ 0.05 MCG/KG/MIN 14. 973 mls/hr IV .[id number] TORIBIO Rx#:[id number] propofoL 500 mg In Empty 286.562 85.445 Bag 1 bag @ Titrate IV . Q0M TORIBIO Rx#:[id number] Blood Product 570 930 Rc As-1 Unit 0 310 [id number] Rc Pheresis 2 As3 Unit 285 [id number] Rc Pheresis As-3 Unit 310 [id number] Output: Urine 260 215 100 Hemodialysis 2000 2500 Other: Voiding Method Indwelling Catheter Indwelling Catheter Indwelling Catheter ABP, PAP, CO, CI - Last Documented Arterial Blood Pressure 153/92 - Exam PHYSICAL EXAMINATION: Revealed a 75-year-old female, obese, on mechanical ventilation, sedated and calm. HEENT:, PERRLA, EOMI, nonicteric.Moist mucous membranes endotracheal tube and orogastric tubes are intact. CHEST EXAMINATION: Symmetrical chest expansion, crackles or rhonchi and wheezes noted bilaterally. Surgical sternal incision seems to be open, purulent drainage noted from the lower aspect of the sternum. HEART EXAMINATION Tachycardic, normal S1 and S2, 2/6 systolic murmur throughout the precordium. ABDOMEN: obese, Soft, nontender. Bowel sounds are heard. No organomegaly noted. EXTREMITIES:1+ peripheral pulses with evidence of mild peripheral edema and no calf tenderness noted. NEUROLOGIC EXAMINATION Sedated on propofol, could not assess. Psychiatric Sedated on propofol, could not assess. Skin: No rashes except for open sternal wound with purulent drainage.. - Labs CBC & Chem 7: 08/26/20 03:50 08/26/20 03:50 Labs: Abnormal Lab Results - Last 24 Hours (Table) 08/23/20 08/24/20 08/24/20 Range/Units 00:16 04:02 17:36 WBC (3.8-10.6) k/uL RBC (3.80-5.40) m/uL Hgb (11.4-16.0) gm/dL Hct (34.0-46.0) % RDW (11.5-15.5) % Plt Count (150-450) k/uL Neutrophils # (Manual) (1.3-7.7) k/uL Monocytes # (Manual) (0-1.0) k/uL Metamyelocytes # (Man) (0) k/uL Myelocytes # (Manual) (0) k/uL Nucleated RBCs (0-0) /100 WBC PT (9.0-12.0) sec INR (<1.2) ABG pH 7.08 L* (7.35-7.45) ABG pO2 (83-108) mmHg ABG HCO3 (21-25) mmol/L ABG Total CO2 (19-24) mmol/L ABG O2 Saturation (94-97) % ABG Lactic Acid (0.5-1.6) mmol/L Sodium (137-145) mmol/L BUN (7-17) mg/dL Creatinine (0.52-1.04) mg/dL Glucose (74-99) mg/dL POC Glucose (mg/dL) (75-99) mg/dL Calcium (8.4-10.2) mg/dL Total Bilirubin (0.2-1.3) mg/dL AST (14-36) U/L ALT (4-34) U/L Alkaline Phosphatase (38-126) U/L Total Protein (6.3-8.2) g/dL Albumin (3.5-5.0) g/dL Mycoplasma pneumon IgG 1.65 H (<=0.90) INDEX Crossmatch See Detail 08/25/20 08/25/20 08/25/20 Range/Units 16:40 16:40 16:42 WBC 14.6 H (3.8-10.6) k/uL RBC 1.80 L (3.80-5.40) m/uL Hgb 5.2 L* (11.4-16.0) gm/dL Hct 16.7 L* (34.0-46.0) % RDW 15.6 H (11.5-15.5) % Plt Count 133 L (150-450) k/uL Neutrophils # (Manual) 12.50 H (1.3-7.7) k/uL Monocytes # (Manual) (0-1.0) k/uL Metamyelocytes # (Man) 0.29 H (0) k/uL Myelocytes # (Manual) 0.15 H (0) k/uL Nucleated RBCs 3 H (0-0) /100 WBC PT (9.0-12.0) sec INR (<1.2) ABG pH (7.35-7.45) ABG pO2 (83-108) mmHg ABG HCO3 (21-25) mmol/L ABG Total CO2 (19-24) mmol/L ABG O2 Saturation (94-97) % ABG Lactic Acid (0.5-1.6) mmol/L Sodium (137-145) mmol/L BUN 27 H (7-17) mg/dL Creatinine 1.94 H (0.52-1.04) mg/dL Glucose 124 H (74-99) mg/dL POC Glucose (mg/dL) 131 H (75-99) mg/dL Calcium 7.9 L (8.4-10.2) mg/dL Total Bilirubin 3.3 H (0.2-1.3) mg/dL AST 1638 H (14-36) U/L ALT 1199 H (4-34) U/L Alkaline Phosphatase 241 H (38-126) U/L Total Protein 5.0 L (6.3-8.2) g/dL Albumin 2.7 L (3.5-5.0) g/dL Mycoplasma pneumon IgG (<=0.90) INDEX Crossmatch 08/25/20 08/25/20 08/25/20 Range/Units 16:46 17:17 17:17 WBC (3.8-10.6) k/uL RBC (3.80-5.40) m/uL Hgb (11.4-16.0) gm/dL Hct (34.0-46.0) % RDW (11.5-15.5) % Plt Count (150-450) k/uL Neutrophils # (Manual) (1.3-7.7) k/uL Monocytes # (Manual) (0-1.0) k/uL Metamyelocytes # (Man) (0) k/uL Myelocytes # (Manual) (0) k/uL Nucleated RBCs (0-0) /100 WBC PT 18.3 H (9.0-12.0) sec INR 1.9 H (<1.2) ABG pH 7.46 H (7.35-7.45) ABG pO2 67 L (83-108) mmHg ABG HCO3 27 H (21-25) mmol/L ABG Total CO2 29 H (19-24) mmol/L ABG O2 Saturation 93.5 L (94-97) % ABG Lactic Acid 3.7 H* (0.5-1.6) mmol/L Sodium (137-145) mmol/L BUN (7-17) mg/dL Creatinine (0.52-1.04) mg/dL Glucose (74-99) mg/dL POC Glucose (mg/dL) (75-99) mg/dL Calcium (8.4-10.2) mg/dL Total Bilirubin (0.2-1.3) mg/dL AST (14-36) U/L ALT (4-34) U/L Alkaline Phosphatase (38-126) U/L Total Protein (6.3-8.2) g/dL Albumin (3.5-5.0) g/dL Mycoplasma pneumon IgG (<=0.90) INDEX Crossmatch 08/25/20 08/25/20 08/26/20 Range/Units 18:19 23:46 03:50 WBC 29.6 H (3.8-10.6) k/uL RBC 3.54 L (3.80-5.40) m/uL Hgb 10.8 L D (11.4-16.0) gm/dL Hct 32.6 L (34.0-46.0) % RDW (11.5-15.5) % Plt Count (150-450) k/uL Neutrophils # (Manual) 22.70 H (1.3-7.7) k/uL Monocytes # (Manual) 1.78 H (0-1.0) k/uL Metamyelocytes # (Man) 0.89 H (0) k/uL Myelocytes # (Manual) 0.59 H (0) k/uL Nucleated RBCs 5 H (0-0) /100 WBC PT (9.0-12.0) sec INR (<1.2) ABG pH (7.35-7.45) ABG pO2 338 H (83-108) mmHg ABG HCO3 26 H (21-25) mmol/L ABG Total CO2 27 H (19-24) mmol/L ABG O2 Saturation 100.0 H (94-97) % ABG Lactic Acid (0.5-1.6) mmol/L Sodium (137-145) mmol/L BUN (7-17) mg/dL Creatinine (0.52-1.04) mg/dL Glucose (74-99) mg/dL POC Glucose (mg/dL) 153 H (75-99) mg/dL Calcium (8.4-10.2) mg/dL Total Bilirubin (0.2-1.3) mg/dL AST (14-36) U/L ALT (4-34) U/L Alkaline Phosphatase (38-126) U/L Total Protein (6.3-8.2) g/dL Albumin (3.5-5.0) g/dL Mycoplasma pneumon IgG (<=0.90) INDEX Crossmatch 08/26/20 08/26/20 08/26/20 Range/Units 03:50 04:34 05:23 WBC (3.8-10.6) k/uL RBC (3.80-5.40) m/uL Hgb (11.4-16.0) gm/dL Hct (34.0-46.0) % RDW (11.5-15.5) % Plt Count (150-450) k/uL Neutrophils # (Manual) (1.3-7.7) k/uL Monocytes # (Manual) (0-1.0) k/uL Metamyelocytes # (Man) (0) k/uL Myelocytes # (Manual) (0) k/uL Nucleated RBCs (0-0) /100 WBC PT (9.0-12.0) sec INR (<1.2) ABG pH (7.35-7.45) ABG pO2 (83-108) mmHg ABG HCO3 26 H (21-25) mmol/L ABG Total CO2 27 H (19-24) mmol/L ABG O2 Saturation 97.1 H (94-97) % ABG Lactic Acid (0.5-1.6) mmol/L Sodium 134 L (137-145) mmol/L BUN 40 H (7-17) mg/dL Creatinine 1.83 H (0.52-1.04) mg/dL Glucose 146 H (74-99) mg/dL POC Glucose (mg/dL) 127 H (75-99) mg/dL Calcium 7.6 L (8.4-10.2) mg/dL Total Bilirubin 3.3 H (0.2-1.3) mg/dL AST 1067 H (14-36) U/L ALT 993 H (4-34) U/L Alkaline Phosphatase 251 H (38-126) U/L Total Protein 4.9 L (6.3-8.2) g/dL Albumin 2.5 L (3.5-5.0) g/dL Mycoplasma pneumon IgG (<=0.90) INDEX Crossmatch 08/26/20 Range/Units 11:58 WBC (3.8-10.6) k/uL RBC (3.80-5.40) m/uL Hgb (11.4-16.0) gm/dL Hct (34.0-46.0) % RDW (11.5-15.5) % Plt Count (150-450) k/uL Neutrophils # (Manual) (1.3-7.7) k/uL Monocytes # (Manual) (0-1.0) k/uL Metamyelocytes # (Man) (0) k/uL Myelocytes # (Manual) (0) k/uL Nucleated RBCs (0-0) /100 WBC PT (9.0-12.0) sec INR (<1.2) ABG pH (7.35-7.45) ABG pO2 (83-108) mmHg ABG HCO3 (21-25) mmol/L ABG Total CO2 (19-24) mmol/L ABG O2 Saturation (94-97) % ABG Lactic Acid (0.5-1.6) mmol/L Sodium (137-145) mmol/L BUN (7-17) mg/dL Creatinine (0.52-1.04) mg/dL Glucose (74-99) mg/dL POC Glucose (mg/dL) 104 H (75-99) mg/dL Calcium (8.4-10.2) mg/dL Total Bilirubin (0.2-1.3) mg/dL AST (14-36) U/L ALT (4-34) U/L Alkaline Phosphatase (38-126) U/L Total Protein (6.3-8.2) g/dL Albumin (3.5-5.0) g/dL Mycoplasma pneumon IgG (<=0.90) INDEX Crossmatch Microbiology - Last 24 Hours (Table) 08/26/20 08:00 Sputum Culture - Preliminary Sputum 08/24/20 05:45 Gram Stain - Final Chest Wound Culture - Final Staphylococcus aureus 08/25/20 04:40 Blood Culture Gram Stain - Preliminary Blood Blood Culture - Preliminary Presumptive Staph aureus 08/25/20 04:40 Blood Culture - Final Blood 08/24/20 05:00 Urine Culture - Final Urine,Voided 08/24/20 05:32 Blood Culture Gram Stain - Preliminary Blood Blood Culture - Preliminary Presumptive Staph aureus 08/24/20 05:40 Blood Culture Gram Stain - Preliminary Blood Blood Culture - Preliminary Presumptive Staph aureus Assessment and Plan Assessment: Impression: Acute hypoxic and hypercapnic respiratory failure, requiring intubation and mechanical ventilation on 08/25/2020. Sepsis secondary from sternal wound infection infection and separation.. Septic shock, primary source is sternal wound infection. Worsening leukocytosis secondary to above. Acute kidney injury presently on hemodialysis. Acute metabolic acidosis secondary to acute kidney injury and sepsis, resolved Acute transaminitis secondary to hypoperfusion. Acute diastolic congestive heart failure with bilateral pleural effusions History of hypertension History of cervical stenosis Previous tobacco dependence. History of mild interstitial lung disease/pulmonary fibrosis Recommendation: Continue ventilatory support. Continue hemodynamic support. Continue nutritional support. Continue GI and DVT prophylaxis. Continue to monitor daily labs and renal profile. Continue hemodialysis. Continue sedation while on mechanical ventilation. No plans for any weaning in the next couple of days. Continue antibiotics for sepsis and septic shock as well as sternal wound infection. Patient clearly is critically ill, and prognosis is guarded. Discussed her condition with multiple consultants including thoracic surgery on the case. We'll continue to follow. Critical care time is over 30 minutes Time with Patient: Greater than 30
--- NOTE | 2020-08-26 13:20 | P.PN ---
Subjective Progress Note Date: 08/26/20 HISTORY OF PRESENT ILLNESS This is a 75-year-old female patient of Dr. Rich Avila, Dr. Sloan and Dr. Guadalupe. She has a past medical history significant for hypertension, hype rlipidemia, pulmonary fibrosis, asthma, obesity, remote history of tobacco dependence with smoking 32 years ago, osteoarthritis, cervical stenosis post anterior cervical decompression, discectomy and fusion, TIA as a child at age 11 and family history of premature coronary artery disease with her father being diagnosed in his early 50s. Recently, the patient has been experiencing episodes of shortness of breath over the past 6 months with just minimal activity. She also complained of some lower extremity swelling which did resolve with some diuresis. she underwent a stress test which showed anterior wall ischemia with small reversible defect. a 2-D echocardiogram which showed mild aortic valve insufficiency, mild mitral valve regurgitation, mild tricuspid valve regurgitation and left ventricular function to be normal with an ejection fraction of 55%. Subsequently she underwent an elective heart catheterization on 07/27/2020 which demonstrated a left main stenosis with QING with a calculation of 2.6 mm, a 40% stenosis to her mid left anterior descending coronary artery and a 30% stenosis to her right coronary artery. Due to the patient's symptoms and findings on her heart catheterization of left main stenosis a consult was placed to Dr. Sethi from cardiothoracic surgery for further evaluation and treatment recommendations. During her preoperative workup her serum sodium level was found to be 120 and was admitted prior to surgery for treatment of hyponatremia. Last admission On 08/06/2020-08/19/20 the patient was admitted to the hospital for treatment of her hyponatremia, and once her hyponatremia was resolved on 08/10/2020, asubsequently taken to the operating room where Dr. Sethi performed a double vessel coronary artery bypass grafting surgery using the left internal mammary artery to left anterior setting coronary artery, a reverse greater saphenous vein graft from the aorta to the first obtuse marginal coronary artery, endoscopic harvesting of the left greater saphenous vein from the groin Upon completion of the surgery the patient was transferred to the intensive care unit where she was recovered, monitored hemodynamically and where she progressed cardiac rehabilitation phase Her oxygen was titrated down, she continued to work with physical/occupational therapy and cardiac rehabilitation, she was tolerating an oral diet, her pain was well controlled without narcotics and she was ready to be discharged home with [facility] care on postoperative day #9. Did not require home O2 on last admission however she required new medication changes including diuretics during that last admission. Patient comes in in worsening shortness of breath anasarca, no chest pain, has BARKER, edma without leg pain new medications from last visit was compliant, requiring lipitor 75bid, tolvaptan. meotprolol 75 bid plavix, lasix 40 mg daily losartain 25 asa 325, ferrous sulfate and fluconazole. patient comes in now for CHF, anarsarc eyl pleural effusion, consult with dr Sethi. and cardiology, if okay will be cardiothoracic surgeon can also perform the thoracentesis, however with hypoxemia, also have requested Dr. Gamboa's services. Patient has a hemoglobin of 7.0 on and 3, platelet count of 305, hemoglobin right to admission was 8.0 denies any Hemoccult stools, creatinine was 1.60 from a previous of 0.9 blood pressure is in the low 90s systolic, pulse ox, 90 on 4 L nasal cannula, patient was not discharged with home O2 during her last admission 08/24: A-Team was called for mental status changes. Patient was found to have a blood pressure 99/65, heart rate of 85 and pulse ox of 96% on a nonrebreather with respiratory rate of 32. Patient was transferred to the ICU. She was started on vancomycin and cefepime. Patient has been seen by cardiology with plan to continue vasopressor support, patient may need pleurocentesis. Stat echocardiogram was done to rule out pericardial effusion or tamponade. Patient has been seen by nephrology for acute kidney injury secondary to ATN secondary to hypotension and cardiorenal syndrome. Patient is currently on bicarb drip, status post Lasix 80 mg IV once. Renal replacement therapy to be initiated immediately. Vascular consult in place for a dialysis catheter placement and start hemodialysis today with second treatment tomorrow. Sternal wound was producing thick yellowish brown fluid, was opened approximately 2 cm and deep culture was taken, packed and covered with 4 x 4 dressing. She is requiring vasopressors. She is hypothermic and warming blanket is in place.Patient had minimal output yesterday and none today. She is status post 2.5 L of fluids. 08/25 patient was examined in the ICU. She was able to maintain oxygenation on BiPAP overnight switch to high flow 15 m this morning. Patient did have episodes of agitation last night and was started on Seroquel. She did receive a dose of Seroquel prior to admission and was found to be resting comfortably. Patient is off pressors and bicarbonate drip and metabolic acidosis seemed to have cleared off. On evaluation of patient's lab, WBC is 14.3, hemoglobin 6.5 platelet 208 ABG this morning has a pH of 7.47 CO2 74. Bicarb 29. Sodium has improved to 126 chloride 96 BUN 43 creatinine 2.79 lactic acid has improved to 2.9 calcium 7 liver enzymes elevated AST at 2874 ALT 1469 alkaline phosphatase 192 CRP 356 BNP 13,000 UA does suggest some infection with WBC of 88 hyaline casts 33 protein 2+ urine blood trace nitrite negative leukocyte Estrace negative. Wound cultures positive for presumptive staph aureus. Patient's blood culture from yesterday are positive with presumptive staph aureus. Repeat blood cultures ordered. Patient received 1 unit of PRBCs for low hemoglobin. Urine output has improved to 20-40 mL's per hour. Patient did receive a dose of DDAVP for hyponatremia. Normal saline is running at 50 mL per hour. Did receive hemodialysis today with 2 L ultrafiltration. Patient was also noted to be in A. fib with RVR intermittently and her dose of Lopressor was increased to 25 mg every 8 hours. Continue daptomycin and cefepime for antibiotic coverage. Monitor patient's for QTC prolongation well on Seroquel. Patient has significant dehiscence of wound and may need I&D 08/26: She was intubated and placed on mechanical ventilation overnight with pulse ox of 96%, tidal volume 450, FiO2 50, PEEP of 5. Temperature max last evening was 101.2. Heart rate 82, blood pressure 120/53. WBC 9.6, hemoglobin 10.8, platelet count 159. Sodium 134, potassium 4.7, chloride 100, CO2 25, BUN 14 creatinine 1.83. Blood sugars running between 100 2753. Total bilirubin 3.3, AST 1067, ALT 993, alkaline phosphatase 251. Magnesium 2.1. Patient is on vasopressors. satellite project site monitor atrial flutter alternating with sinus rhythm. Patient is also on propofol and Seroquel discontinued. Thoracic surgery is possible taking her to or for I&D and considering wound VAC. Patient is on Plavix. Echocardiogram reveals normal LV function and mild aortic stenosis. Patient is currently on daptomycin and cefepime per Dr. Mcintyre. Urine output remains low at 15-20 mL per hour. Should she is scheduled for third hemodialysis treatment today. Patient is scheduled for Lasix 80 mg IV this afternoon. REVIEW OF SYSTEMS Unable to obtain due to mental status change/intubation. PHYSICAL EXAMINATION Gen: This is a 75-year-old female. Patient is resting in ICU bed and appears to be comfortable. HEENT: Head is atraumatic, normocephalic. Pupils equal, round. Sclerae is anicteric. Patient is sedated and on mechanical ventilation. NECK: Supple. No JVD. No lymphadenopathy. No thyromegaly. LUNGS: Diminished. No wheezes or rhonchi. No intercostal retractions. HEART: Regular rate and rhythm. 2/6 systolic murmur. Dressing in place to sternal wound with reported purulent drainage. ABDOMEN: Soft. Bowel sounds are present. No masses. No tenderness. EXTREMITIES: 2+ bilat pitting edema. No calf tenderness. NEUROLOGICAL: Patient is sedated ASSESSMENT AND PLAN 1. Acute diastolic heart failure, EF 55%, mild AI and mild MR and mild TR, also complicated by severe protein calorie malnutrition, sat echocardiogram, cardiology consultation, patient has worsening hypoxemia thoracic ultrasound, O2 supplementation, IV Lasix stool for 80 mg this afternoon. Etiology consult appreciated. 2. Acute hypoxemic respiratory failure. Patient has underlying pulmonary hypertension as well, consult with coronary. Patient has been intubated and placed on mechanical ventilation. Following medicine is managing. 3. Acute kidney injury secondary to ATN secondary to hypotension and cardiorenal syndrome. Vascular surgery consult that is post dialysis catheter placement area patient was started on hemodialysis 08/24. 4. Hyperkalemia secondary to potassium supplementation, losartan and acute kidney injury as well as severe acidosis. Consult with nephrology appreciated. Continue medical management. Patient is currently hypotensive and requiring vasopressors 5. Metabolic acidosis secondary to acute kidney injury. 6. Metabolic encephalopathy secondary to acute kidney injury, acute heart failure, acute respiratory failure, metabolic acidosis and hyperkalemia. 7. Sepsis with septic shock with multiorgan failure with metabolic encephalopathy, acute kidney injury, acute heart failure, acute respiratory failure. Patient was started on IV antibiotics in the form of daptomycin and cefepime managed by Dr. Francisco Javier. Patient has required vasopressors. 8. Sepsis with sternal wound dehiscence and possible UTI. Infectious disease consult appreciated. Patient is currently on daptomycin and cefepime. 9. Anemia of chronic blood loss from recent surgery. Continue monitor closely and transfuse if hemoglobin 7 or below. 10. Hyponatremia. 11. CAD, with prior CABG performed on 08/10/2020, two-vessel, involving HOLLAND to LAD, and reverse greater saphenous vein to obtuse marginal coronary artery. Continue aspirin 325 mg daily, Plavix 75 mg daily, Toprol all 75 mg twice a day, 12. Severe protein calorie malnutrition, with anasarca and hypotension. 13. History of pulmonary fibrosis. Continue duo nebs and albuterol 14. Asthma, mild intermittent. Continue ipratropium albuterol nebulizers 15. Hyperlipidemia. Continue statin daily 16. Hypertension. Currently hypotensive 17. GI prophylaxis. Pantoprazole 18. DVT prophylaxis: SCDs 19. Blood sugar management in a nondiabetic. insulin scale every 6 hours. Prognosis guarded DISCHARGE PLAN TBD. Impression and plan of care have been directed as dictated by the signing physician. Monica Fragoso nurse practitioner acting as scribe for signing physician. Objective - Vital Signs Vital signs: Vital Signs Temp 99.3 F 08/26/20 04:00 Pulse 82 08/26/20 07:00 Resp 22 08/26/20 07:00 BP 120/53 08/26/20 07:00 Pulse Ox 96 08/26/20 06:45 Intake & Output 08/25/20 08/26/20 08/26/20 18:59 06:59 18:59 Intake Total 5735.585 9174.986 Output Total 2260 215 Balance -247.150 1930.986 Weight 86.2 kg Intake: IV 873 832 .9 NS 90 Calcium Gluconate 1 gm In 100 Sodium Chloride 0.9% 100 ml @ 100 mls/hr IVPB ONCE ONE Rx#:[id number] Cefepime 1 gm In Sodium 50 Chloride 0.9% 50 ml @ 12. 5 mls/hr IVPB Q24H [facility] Rx #:[id number] Desmopressin Acetate 14 50 mcg In Sodium Chloride 0. 9% 50 ml @ 200 mls/hr IVPB ONCE ONE Rx#: [id number] Dextrose 5% in Water 1, 200 000 ml @ 50 mls/hr IV . Q23H [facility] with Sodium Bicarb (1 Meq/ml) 150 ml Rx#:[id number] Pressure Bag 33 12 Sodium Chloride 0.9% 1, 400 770 000 ml @ 50 mls/hr IV . Q20H [facility] Rx#:[id number] Intake, IV Titration 992.485 6233.986 Amount Norepinephrine 4 mg In 105.811 856.424 Sodium Chloride 0.9% 250 ml @ 0.05 MCG/KG/MIN 14. 973 mls/hr IV .[id number] [facility] Rx#:[id number] propofoL 500 mg In Empty 286.562 Bag 1 bag @ Titrate IV . Q0M [facility] Rx#:[id number] Blood Product 570 930 Rc As-1 Unit 0 310 [id number] Rc Pheresis 2 As3 Unit 285 [id number] Rc Pheresis As-3 Unit 310 [id number] Output: Urine 260 215 Hemodialysis 2000 Other: Voiding Method Indwelling Catheter Indwelling Catheter ABP, PAP, CO, CI - Last Documented Arterial Blood Pressure 153/92 - Labs CBC & Chem 7: 08/26/20 03:50 08/26/20 03:50 Labs: Abnormal Lab Results - Last 24 Hours (Table) 08/23/20 08/24/20 08/24/20 Range/Units 00:16 04:02 05:32 WBC (3.8-10.6) k/uL RBC (3.80-5.40) m/uL Hgb (11.4-16.0) gm/dL Hct (34.0-46.0) % RDW (11.5-15.5) % Plt Count (150-450) k/uL Neutrophils # (Manual) (1.3-7.7) k/uL Monocytes # (Manual) (0-1.0) k/uL Metamyelocytes # (Man) (0) k/uL Myelocytes # (Manual) (0) k/uL Nucleated RBCs (0-0) /100 WBC PT (9.0-12.0) sec INR (<1.2) ABG pH 7.08 L* (7.35-7.45) ABG pO2 (83-108) mmHg ABG HCO3 (21-25) mmol/L ABG Total CO2 (19-24) mmol/L ABG O2 Saturation (94-97) % ABG Lactic Acid (0.5-1.6) mmol/L Sodium (137-145) mmol/L BUN (7-17) mg/dL Creatinine (0.52-1.04) mg/dL Glucose (74-99) mg/dL POC Glucose (mg/dL) (75-99) mg/dL Plasma Lactic Acid Garrett (0.7-2.0) mmol/L Calcium (8.4-10.2) mg/dL Total Bilirubin (0.2-1.3) mg/dL AST (14-36) U/L ALT (4-34) U/L Alkaline Phosphatase (38-126) U/L Total Protein (6.3-8.2) g/dL Albumin (3.5-5.0) g/dL Procalcitonin 16.57 H (0.02-0.09) ng/mL Mycoplasma pneumon IgG (<=0.90) INDEX Crossmatch See Detail 08/24/20 08/25/20 08/25/20 Range/Units 17:36 09:42 09:52 WBC (3.8-10.6) k/uL RBC (3.80-5.40) m/uL Hgb (11.4-16.0) gm/dL Hct (34.0-46.0) % RDW (11.5-15.5) % Plt Count (150-450) k/uL Neutrophils # (Manual) (1.3-7.7) k/uL Monocytes # (Manual) (0-1.0) k/uL Metamyelocytes # (Man) (0) k/uL Myelocytes # (Manual) (0) k/uL Nucleated RBCs (0-0) /100 WBC PT (9.0-12.0) sec INR (<1.2) ABG pH 7.47 H (7.35-7.45) ABG pO2 74 L (83-108) mmHg ABG HCO3 29 H (21-25) mmol/L ABG Total CO2 31 H (19-24) mmol/L ABG O2 Saturation (94-97) % ABG Lactic Acid (0.5-1.6) mmol/L Sodium (137-145) mmol/L BUN (7-17) mg/dL Creatinine (0.52-1.04) mg/dL Glucose (74-99) mg/dL POC Glucose (mg/dL) (75-99) mg/dL Plasma Lactic Acid Garrett 2.9 H* (0.7-2.0) mmol/L Calcium (8.4-10.2) mg/dL Total Bilirubin (0.2-1.3) mg/dL AST (14-36) U/L ALT (4-34) U/L Alkaline Phosphatase (38-126) U/L Total Protein (6.3-8.2) g/dL Albumin (3.5-5.0) g/dL Procalcitonin (0.02-0.09) ng/mL Mycoplasma pneumon IgG 1.65 H (<=0.90) INDEX Crossmatch 08/25/20 08/25/20 08/25/20 Range/Units 16:40 16:40 16:42 WBC 14.6 H (3.8-10.6) k/uL RBC 1.80 L (3.80-5.40) m/uL Hgb 5.2 L* (11.4-16.0) gm/dL Hct 16.7 L* (34.0-46.0) % RDW 15.6 H (11.5-15.5) % Plt Count 133 L (150-450) k/uL Neutrophils # (Manual) 12.50 H (1.3-7.7) k/uL Monocytes # (Manual) (0-1.0) k/uL Metamyelocytes # (Man) 0.29 H (0) k/uL Myelocytes # (Manual) 0.15 H (0) k/uL Nucleated RBCs 3 H (0-0) /100 WBC PT (9.0-12.0) sec INR (<1.2) ABG pH (7.35-7.45) ABG pO2 (83-108) mmHg ABG HCO3 (21-25) mmol/L ABG Total CO2 (19-24) mmol/L ABG O2 Saturation (94-97) % ABG Lactic Acid (0.5-1.6) mmol/L Sodium (137-145) mmol/L BUN 27 H (7-17) mg/dL Creatinine 1.94 H (0.52-1.04) mg/dL Glucose 124 H (74-99) mg/dL POC Glucose (mg/dL) 131 H (75-99) mg/dL Plasma Lactic Acid Garrett (0.7-2.0) mmol/L Calcium 7.9 L (8.4-10.2) mg/dL Total Bilirubin 3.3 H (0.2-1.3) mg/dL AST 1638 H (14-36) U/L ALT 1199 H (4-34) U/L Alkaline Phosphatase 241 H (38-126) U/L Total Protein 5.0 L (6.3-8.2) g/dL Albumin 2.7 L (3.5-5.0) g/dL Procalcitonin (0.02-0.09) ng/mL Mycoplasma pneumon IgG (<=0.90) INDEX Crossmatch 08/25/20 08/25/20 08/25/20 Range/Units 16:46 17:17 17:17 WBC (3.8-10.6) k/uL RBC (3.80-5.40) m/uL Hgb (11.4-16.0) gm/dL Hct (34.0-46.0) % RDW (11.5-15.5) % Plt Count (150-450) k/uL Neutrophils # (Manual) (1.3-7.7) k/uL Monocytes # (Manual) (0-1.0) k/uL Metamyelocytes # (Man) (0) k/uL Myelocytes # (Manual) (0) k/uL Nucleated RBCs (0-0) /100 WBC PT 18.3 H (9.0-12.0) sec INR 1.9 H (<1.2) ABG pH 7.46 H (7.35-7.45) ABG pO2 67 L (83-108) mmHg ABG HCO3 27 H (21-25) mmol/L ABG Total CO2 29 H (19-24) mmol/L ABG O2 Saturation 93.5 L (94-97) % ABG Lactic Acid 3.7 H* (0.5-1.6) mmol/L Sodium (137-145) mmol/L BUN (7-17) mg/dL Creatinine (0.52-1.04) mg/dL Glucose (74-99) mg/dL POC Glucose (mg/dL) (75-99) mg/dL Plasma Lactic Acid Garrett (0.7-2.0) mmol/L Calcium (8.4-10.2) mg/dL Total Bilirubin (0.2-1.3) mg/dL AST (14-36) U/L ALT (4-34) U/L Alkaline Phosphatase (38-126) U/L Total Protein (6.3-8.2) g/dL Albumin (3.5-5.0) g/dL Procalcitonin (0.02-0.09) ng/mL Mycoplasma pneumon IgG (<=0.90) INDEX Crossmatch 08/25/20 08/25/20 08/26/20 Range/Units 18:19 23:46 03:50 WBC 29.6 H (3.8-10.6) k/uL RBC 3.54 L (3.80-5.40) m/uL Hgb 10.8 L D (11.4-16.0) gm/dL Hct 32.6 L (34.0-46.0) % RDW (11.5-15.5) % Plt Count (150-450) k/uL Neutrophils # (Manual) 22.70 H (1.3-7.7) k/uL Monocytes # (Manual) 1.78 H (0-1.0) k/uL Metamyelocytes # (Man) 0.89 H (0) k/uL Myelocytes # (Manual) 0.59 H (0) k/uL Nucleated RBCs 5 H (0-0) /100 WBC PT (9.0-12.0) sec INR (<1.2) ABG pH (7.35-7.45) ABG pO2 338 H (83-108) mmHg ABG HCO3 26 H (21-25) mmol/L ABG Total CO2 27 H (19-24) mmol/L ABG O2 Saturation 100.0 H (94-97) % ABG Lactic Acid (0.5-1.6) mmol/L Sodium (137-145) mmol/L BUN (7-17) mg/dL Creatinine (0.52-1.04) mg/dL Glucose (74-99) mg/dL POC Glucose (mg/dL) 153 H (75-99) mg/dL Plasma Lactic Acid Garrett (0.7-2.0) mmol/L Calcium (8.4-10.2) mg/dL Total Bilirubin (0.2-1.3) mg/dL AST (14-36) U/L ALT (4-34) U/L Alkaline Phosphatase (38-126) U/L Total Protein (6.3-8.2) g/dL Albumin (3.5-5.0) g/dL Procalcitonin (0.02-0.09) ng/mL Mycoplasma pneumon IgG (<=0.90) INDEX Crossmatch 08/26/20 08/26/20 08/26/20 Range/Units 03:50 04:34 05:23 WBC (3.8-10.6) k/uL RBC (3.80-5.40) m/uL Hgb (11.4-16.0) gm/dL Hct (34.0-46.0) % RDW (11.5-15.5) % Plt Count (150-450) k/uL Neutrophils # (Manual) (1.3-7.7) k/uL Monocytes # (Manual) (0-1.0) k/uL Metamyelocytes # (Man) (0) k/uL Myelocytes # (Manual) (0) k/uL Nucleated RBCs (0-0) /100 WBC PT (9.0-12.0) sec INR (<1.2) ABG pH (7.35-7.45) ABG pO2 (83-108) mmHg ABG HCO3 26 H (21-25) mmol/L ABG Total CO2 27 H (19-24) mmol/L ABG O2 Saturation 97.1 H (94-97) % ABG Lactic Acid (0.5-1.6) mmol/L Sodium 134 L (137-145) mmol/L BUN 40 H (7-17) mg/dL Creatinine 1.83 H (0.52-1.04) mg/dL Glucose 146 H (74-99) mg/dL POC Glucose (mg/dL) 127 H (75-99) mg/dL Plasma Lactic Acid Garrett (0.7-2.0) mmol/L Calcium 7.6 L (8.4-10.2) mg/dL Total Bilirubin 3.3 H (0.2-1.3) mg/dL AST 1067 H (14-36) U/L ALT 993 H (4-34) U/L Alkaline Phosphatase 251 H (38-126) U/L Total Protein 4.9 L (6.3-8.2) g/dL Albumin 2.5 L (3.5-5.0) g/dL Procalcitonin (0.02-0.09) ng/mL Mycoplasma pneumon IgG (<=0.90) INDEX Crossmatch Microbiology - Last 24 Hours (Table) 08/25/20 04:40 Blood Culture Gram Stain - Preliminary Blood 08/25/20 04:40 Blood Culture - Final Blood 08/24/20 05:00 Urine Culture - Final Urine,Voided 08/24/20 05:32 Blood Culture Gram Stain - Preliminary Blood Blood Culture - Preliminary Presumptive Staph aureus 08/24/20 05:40 Blood Culture Gram Stain - Preliminary Blood Blood Culture - Preliminary Presumptive Staph aureus 08/24/20 05:45 Gram Stain - Preliminary Chest Wound Culture - Preliminary Presumptive Staph aureus
[2020-08-26] MEDS ORDERED: FUROSEMIDE 10 MG/ML 10 ML VIAL IV ONE (15:00)
--- NOTE | 2020-08-26 15:38 | PN ---
PROGRESS NOTE DATE OF SERVICE: 08/26/2020 REASON FOR FOLLOWUP: MSSA bacteremia secondary to sternal wound infection. INTERVAL HISTORY: The patient did have worsening of respiratory status yesterday and patient ended up getting intubated. The patient is currently on 50% FiO2. No significant purulent secretions through the ET have been reported. She is currently on low-dose pressor support though. No diarrhea reported. PHYSICAL EXAMINATION: Blood pressure is 116/47, pulse of 81, temperature 98.7. She is 95% on 50% FiO2. General description is an elderly female lying in bed in no distress. RESPIRATORY SYSTEM: Unlabored breathing, decreased intensity of breath sounds. No wheeze. HEART: S1, S2. Regular rate and rhythm. ABDOMEN: Soft, no tenderness. LABS: Hemoglobin is 10.8, white count 29.6. BUN of 4, creatinine of 1.83. DIAGNOSTIC IMPRESSION AND PLAN: Patient with MSSA bacteremia source likely sternal wound infection with finalized with MSSA. Antibiotic will be adjusted to cefepime and clindamycin to cover for possible aspiration process and monitor clinical course closely. MMODL / IJN: [id number] /
[2020-08-26 17:19] LABS: Glucose,Whole Blood 122 mg/dL (75-99)
[2020-08-26] MEDS: SENNOSIDES-DOCUSATE SODIUM 1 EACH TAB PO SCH (20:09)
[2020-08-27 00:01] LABS: Glucose,Whole Blood 117 mg/dL (75-99)
[2020-08-27] MEDS: NOREPINEPHRINE 4 MG in SODIUM CHLORIDE 0.9% 250 ML IV SCH ×4 (00:01→21:04)
[2020-08-27] MEDS: INSULIN ASPART (NovoLOG) 100 UNIT/ML VIAL SQ SCH ×4 (00:02→18:16)
[2020-08-27] MEDS: METOPROLOL TARTRATE 25 MG TAB PO SCH ×4 (00:05→23:05)
[2020-08-27] MEDS: HEPARIN SODIUM,PORCINE 5,000 UNIT/ML 1 ML VIAL SQ SCH ×4 (00:05→23:05)
[2020-08-27] MEDS: DAPTOmycin 500 MG in SODIUM CHLORIDE 0.9% 50 ML IVPB SCH (00:05)
[2020-08-27] MEDS: ACETAMINOPHEN TAB 325 MG TAB PO PRN (00:18)
[2020-08-27] MEDS: SODIUM CHLORIDE 0.9% 1,000 ML IV SCH (02:46)
[2020-08-27 04:20] LABS: Albumin 2.3 g/dL (3.5-5.0); Calcium 7.8 mg/dL (8.4-10.2); Potassium 3.3 mmol/L (3.5-5.1); Total Bilirubin 3.5 mg/dL (0.2-1.3); Total Protein 4.8 g/dL (6.3-8.2)
[2020-08-27 04:39] LABS: HCT 34.3 % (34.0-46.0); HGB 11.3 gm/dL (11.4-16.0); Hypochromasia Marked; MCH 30.9 pg (25.0-35.0); MCV 93.5 fL (80.0-100.0); Mean Platelet Volume 9.5; Poikilocytosis Moderate; RBC 3.66 m/uL (3.80-5.40); RDW 15.7 % (11.5-15.5)
[2020-08-27] MEDS: CEFEPIME 1 GM in SODIUM CHLORIDE 0.9% 50 ML IVPB SCH ×2 (04:52→17:53)
[2020-08-27 05:11] LABS: Band Neutrophils % 39 %; Eosinophils # (M) 0.28 k/uL (0-0.7); Lymphocytes # (M) 2.81 k/uL (1.0-4.8); Metamyelocytes # (M) 0.56 k/uL (0); Metamyelocytes % 2 %; Monocytes # (M) 1.12 k/uL (0-1.0); Neutrophils % (M) 44 %; Nucleated Red Blood Cells 1 /100 WBC (0-0); Total Cells Counted 200; WBC 28.1 k/uL (3.8-10.6)
[2020-08-27 05:13] LABS: Anisocytosis (M) Present; Poikilocytosis (M) Present
[2020-08-27 05:28] LABS: ABG Base Excess 1.3 mmol/L; ABG HCO3 25 mmol/L (21-25); ABG PCO2 33 mmHg (35-45); ABG PH 7.49 (7.35-7.45); ABG PO2 71 mmHg (83-108); ABG TCO2 26 mmol/L (19-24); Allen Test Performed? Yes
[2020-08-27 06:17] LABS: Glucose,Whole Blood 109 mg/dL (75-99)
[2020-08-27] MEDS: POTASSIUM CHLORIDE ER 20 MEQ TAB.ER PO SCH ×2 (06:46→06:51)
[2020-08-27] MEDS: IPRATROPIUM-ALBUTEROL 3 ML NEB INHALATION PRN (07:42)
--- NOTE | 2020-08-27 07:43 | P.PN ---
Subjective Progress Note Date: 08/27/20 Principal diagnosis: Shortness of breath, likely acute diastolic heart failure, bilateral pleural effusion, lactic acidosis, hypercapnic respiratory failure requiring BiPAP followed by mechanical ventilation, acute kidney injury, acute hyperkalemia, hyponatremia, acute transaminitis, hypotension requiring vasopressors use. Previous medical history of coronary artery disease with left main stenosis status post 2 vessel CABG on 08/10/2020 with expected postoperative acute blood loss anemia, hypotension, and urinary retention as well as candidal stomatititus, hyponatremia, pulmonary fibrosis, asthma, hypertension, hyperlipidemia, previous tobacco dependence, obesity, osteoarthritis, cervical stenosis post anterior cervical disc decompression, discectomy and fusion, TIA as a child, family history of premature coronary artery disease. Paroxysmal Afib w/ RVR The patient was seen and examined at the bedside in the ICU. Remains sedated on propofol and mechanically ventilated. Appears comfortable at this time. T-max 100.8 in the last 24 hours, WBC 28.1 with 39% bands, blood cultures positive for MSSA, sternal wound culture positive for MSSA, continues to have purulent drainage from sternal wound, cleaned and packed daily. Sputum culture pending, preliminary negative. Patient remains on IV cefepime and daptomycin per infectious disease. She isn't controlled atrial flutter with occasional PVCs with heart rate in the 80s. Blood pressure stable on IV Levophed. Kidney function and liver function is slightly improved, BUN 38, creatinine 1.22, AST 330, ALT 566. Hemoglobin 11.3 this morning. Trickle tube feeds were started yesterday. She did receive dialysis the last 3 days. Order placed for PICC line for long-term antibiotics. Family updated daily by phone. Objective - Vital Signs Vital signs: Vital Signs Temp 100.1 F H 08/27/20 04:00 Pulse 94 08/27/20 07:00 Resp 31 H 08/27/20 07:00 BP 111/64 08/27/20 07:00 Pulse Ox 96 08/27/20 07:00 Intake & Output 08/26/20 08/27/20 08/27/20 18:59 06:59 18:59 Intake Total 217.852 3016.586 Output Total 2780 725 Balance -1822.452 417.586 Weight 86.2 kg 92.2 kg Intake: IV 260 360 Cefepime 1 gm In Sodium 100 Chloride 0.9% 50 ml @ 12. 5 mls/hr IVPB Q24H [facility] Rx #:[id number] Sodium Chloride 0.9% 1, 260 260 000 ml @ 20 mls/hr IV . Q24H [facility] Rx#:[id number] Intake, IV Titration 617.548 702.586 Amount Norepinephrine 4 mg In 413.715 384.118 Sodium Chloride 0.9% 250 ml @ 0.05 MCG/KG/MIN 14. 973 mls/hr IV .[id number] [facility] Rx#:[id number] propofoL 500 mg In Empty 203.833 318.468 Bag 1 bag @ Titrate IV . Q0M [facility] Rx#:[id number] Tube Feeding 50 50 Other 30 30 Output: Urine 280 725 Hemodialysis 2500 Other: Voiding Method Indwelling Catheter Indwelling Catheter ABP, PAP, CO, CI - Last Documented Arterial Blood Pressure 153/92 - Constitutional Constitutional Comment(s): Appears comfortable, sedated on mechanical ventilation - Respiratory Details: Lungs sounds diminished in the bases bilaterally. Respirations even, nonlabored on mechanical ventilation. Current vent settings FiO2 50%, tidal volume 450, respiratory rate 20, PEEP 5. ABGs this morning on those settings 7.49/33/71/25/97%/1.3. 7.5 ET tube present, 22 at the lip. - Cardiovascular Details: S1, S2 present. Irregular rate and rhythm, atrial flutter with occasional PVCs heart rate in the 80s. Sternum stable. Palpable peripheral pulses bilaterally. Generalized edema present. Heart hugger, antiembolism stockings, SCDs present. Right femoral triple-lumen central line present. - Gastrointestinal Gastrointestinal Comment(s): Abdomen soft, nontender, nondistended. Active bowel sounds present 4 quadrants. OG tube present, trickle tube feedings were started yesterday, currently on low intermittent suction for surgical evaluation - Genitourinary Genitourinary Comment(s): Yu present draining yellow urine, 30-50 mL/hr. Right groin temporary dialysis catheter present - Integumentary Integumentary Comment(s): Anterior chest incision opened in the midportion, draining purulent fluid, packed and covered with 4x4. Left lower extremity EVH site well approximated without redness or drainage, bruising present - Psychiatric Psychiatric Comment(s): Currently sedated with propofol on mechanical ventilation - Allied health notes Allied health notes reviewed: nursing - Labs CBC & Chem 7: 08/27/20 03:32 08/27/20 03:32 Labs: Abnormal Lab Results - Last 24 Hours (Table) 08/26/20 08/26/20 08/26/20 Range/Units 11:58 17:18 23:59 WBC (3.8-10.6) k/uL RBC (3.80-5.40) m/uL Hgb (11.4-16.0) gm/dL RDW (11.5-15.5) % Neutrophils # (Manual) (1.3-7.7) k/uL Monocytes # (Manual) (0-1.0) k/uL Metamyelocytes # (Man) (0) k/uL Nucleated RBCs (0-0) /100 WBC ABG pH (7.35-7.45) ABG pCO2 (35-45) mmHg ABG pO2 (83-108) mmHg ABG Total CO2 (19-24) mmol/L Potassium (3.5-5.1) mmol/L Chloride (98-107) mmol/L BUN (7-17) mg/dL Creatinine (0.52-1.04) mg/dL Glucose (74-99) mg/dL POC Glucose (mg/dL) 104 H 122 H 117 H (75-99) mg/dL Calcium (8.4-10.2) mg/dL Total Bilirubin (0.2-1.3) mg/dL AST (14-36) U/L ALT (4-34) U/L Alkaline Phosphatase (38-126) U/L Total Protein (6.3-8.2) g/dL Albumin (3.5-5.0) g/dL 08/27/20 08/27/20 08/27/20 Range/Units 03:32 03:32 05:27 WBC 28.1 H (3.8-10.6) k/uL RBC 3.66 L (3.80-5.40) m/uL Hgb 11.3 L (11.4-16.0) gm/dL RDW 15.7 H (11.5-15.5) % Neutrophils # (Manual) 23.30 H (1.3-7.7) k/uL Monocytes # (Manual) 1.12 H (0-1.0) k/uL Metamyelocytes # (Man) 0.56 H (0) k/uL Nucleated RBCs 1 H (0-0) /100 WBC ABG pH 7.49 H (7.35-7.45) ABG pCO2 33 L (35-45) mmHg ABG pO2 71 L (83-108) mmHg ABG Total CO2 26 H (19-24) mmol/L Potassium 3.3 L (3.5-5.1) mmol/L Chloride 109 H (98-107) mmol/L BUN 38 H (7-17) mg/dL Creatinine 1.22 H (0.52-1.04) mg/dL Glucose 116 H (74-99) mg/dL POC Glucose (mg/dL) (75-99) mg/dL Calcium 7.8 L (8.4-10.2) mg/dL Total Bilirubin 3.5 H (0.2-1.3) mg/dL AST 330 H (14-36) U/L ALT 566 H (4-34) U/L Alkaline Phosphatase 320 H (38-126) U/L Total Protein 4.8 L (6.3-8.2) g/dL Albumin 2.3 L (3.5-5.0) g/dL 08/27/20 Range/Units 06:16 WBC (3.8-10.6) k/uL RBC (3.80-5.40) m/uL Hgb (11.4-16.0) gm/dL RDW (11.5-15.5) % Neutrophils # (Manual) (1.3-7.7) k/uL Monocytes # (Manual) (0-1.0) k/uL Metamyelocytes # (Man) (0) k/uL Nucleated RBCs (0-0) /100 WBC ABG pH (7.35-7.45) ABG pCO2 (35-45) mmHg ABG pO2 (83-108) mmHg ABG Total CO2 (19-24) mmol/L Potassium (3.5-5.1) mmol/L Chloride (98-107) mmol/L BUN (7-17) mg/dL Creatinine (0.52-1.04) mg/dL Glucose (74-99) mg/dL POC Glucose (mg/dL) 109 H (75-99) mg/dL Calcium (8.4-10.2) mg/dL Total Bilirubin (0.2-1.3) mg/dL AST (14-36) U/L ALT (4-34) U/L Alkaline Phosphatase (38-126) U/L Total Protein (6.3-8.2) g/dL Albumin (3.5-5.0) g/dL Microbiology - Last 24 Hours (Table) 08/26/20 10:15 Blood Culture - Final Blood 08/26/20 08:00 Gram Stain - Preliminary Sputum Sputum Culture - Preliminary 08/24/20 05:40 Blood Culture Gram Stain - Final Blood Blood Culture - Final Staphylococcus aureus 08/24/20 05:45 Anaerobic Culture - Preliminary Chest 08/24/20 05:45 Gram Stain - Final Chest Wound Culture - Final Staphylococcus aureus 08/25/20 04:40 Blood Culture Gram Stain - Preliminary Blood Blood Culture - Preliminary Presumptive Staph aureus - Imaging and Cardiology Chest x-ray: image reviewed Assessment and Plan Assessment: 1. Shortness of breath, acute diastolic heart failure, EF 55-60% on current TTE, bilateral pleural effusions 2. Lactic acidosis, septic shock, blood cultures positive for MSSA 3. Hypercapnic, hypoxic respiratory failure requiring BiPAP, with subsequent intubation and mechanical ventilation 4. Open sternal wound, surgically created, positive for MSSA 5. Leukocytosis with bandemia 6. Acute kidney injury, metabolic acidosis 7. Acute hyperkalemia, resolved 8. Acute transaminitis secondary to hypoperfusion 9. History of hypertension, currently hypotensive requiring vasopressors 10. Acute anemia, post transfusion PRBCs, on 11. Coronary artery disease with left main stenosis status post 2 vessel CABG on 08/10/2020 with expected postoperative acute blood loss anemia, hypotension, and urinary retention as well as candidal stomatititus 12. Hyponatremia, resolved 13. Pulmonary fibrosis, asthma 14. Hyperlipidemia, treated 15. Previous tobacco dependence 16. Obesity 17. Paroxysmal afib w/ RVR, atrial flutter Plan: 1. Ventilator management per pulmonary medicine 2. Nephrology following, avoid nephrotoxins, HD per nephro 3. Infectious disease following, final blood cultures/sternal wound cultures positive for MSSA, continue antibiotics 4. Continue aspirin, statin, Plavix, beta sisi therapy. Avoid amio 2/2 transaminitis. Keep SBP 120-140 for perfusion of organs. Wean levo as tolerated 5. Will monitor daily labs and x-rays, ABGs. 6. Continue sternal precautions 7. GI/DVT prophylaxis 8. Continue sternal dressing change w/ packing daily and PRN. Likely will need wound VAC 9. Tube feeding for nutrition, currently on hold for surgical evaluation 10. Will update family daily 11. More recommendations to follow Time with Patient: Greater than 30
--- NOTE | 2020-08-27 08:11 | P.PN ---
Subjective Progress Note Date: 08/27/20 Principal diagnosis: Hypotension This is a 75-year-old female patient who underwent coronary artery bypass grafting times to 2 weeks ago with also history of pulmonary fibrosis as well as multiple comorbid conditions was admitted to the hospital initiated with increasing shortness of breath without any symptoms of chest pain or chest discomfort. Subsequently the patient was admitted to the [address] [place] [address] unit and subsequently she was transferred to the intensive. For increasing shortness of breath and also change in mental status. She was diagnosed with sepsis secondary to infection in the sternum. The patient was seen today August 272020. She is currently in atrial flutter with a relatively controlled heart rate. We are holding any oral or IV anticoagulation because patient is in process of going to the OR for sternum debridement. Hemodynamically she is requiring norepinephrine. She still intubated on mechanical ventilation. Objective - Vital Signs Vital signs: Vital Signs Temp 100.1 F H 08/27/20 04:00 Pulse 88 08/27/20 07:57 Resp 31 H 08/27/20 07:00 BP 111/64 08/27/20 07:00 Pulse Ox 96 08/27/20 07:00 Intake & Output 08/26/20 08/27/20 08/27/20 18:59 06:59 18:59 Intake Total 535.811 6672.586 Output Total 2780 725 Balance -1822.452 417.586 Weight 86.2 kg 92.2 kg Intake: IV 260 360 Cefepime 1 gm In Sodium 100 Chloride 0.9% 50 ml @ 12. 5 mls/hr IVPB Q24H [facility] Rx #:[id number] Sodium Chloride 0.9% 1, 260 260 000 ml @ 20 mls/hr IV . Q24H [facility] Rx#:[id number] Intake, IV Titration 617.548 702.586 Amount Norepinephrine 4 mg In 413.715 384.118 Sodium Chloride 0.9% 250 ml @ 0.05 MCG/KG/MIN 14. 973 mls/hr IV .[id number] [facility] Rx#:[id number] propofoL 500 mg In Empty 203.833 318.468 Bag 1 bag @ Titrate IV . Q0M [facility] Rx#:[id number] Tube Feeding 50 50 Other 30 30 Output: Urine 280 725 Hemodialysis 2500 Other: Voiding Method Indwelling Catheter Indwelling Catheter ABP, PAP, CO, CI - Last Documented Arterial Blood Pressure 153/92 - Constitutional General appearance: Present: no acute distress - Respiratory Respiratory: bilateral: diminished - Cardiovascular Rhythm: irregularly irregular Heart sounds: normal: S1, S2 - Labs CBC & Chem 7: 08/27/20 03:32 08/27/20 03:32 Labs: Abnormal Lab Results - Last 24 Hours (Table) 08/26/20 08/26/20 08/26/20 Range/Units 11:58 17:18 23:59 WBC (3.8-10.6) k/uL RBC (3.80-5.40) m/uL Hgb (11.4-16.0) gm/dL RDW (11.5-15.5) % Neutrophils # (Manual) (1.3-7.7) k/uL Monocytes # (Manual) (0-1.0) k/uL Metamyelocytes # (Man) (0) k/uL Nucleated RBCs (0-0) /100 WBC ABG pH (7.35-7.45) ABG pCO2 (35-45) mmHg ABG pO2 (83-108) mmHg ABG Total CO2 (19-24) mmol/L Potassium (3.5-5.1) mmol/L Chloride (98-107) mmol/L BUN (7-17) mg/dL Creatinine (0.52-1.04) mg/dL Glucose (74-99) mg/dL POC Glucose (mg/dL) 104 H 122 H 117 H (75-99) mg/dL Calcium (8.4-10.2) mg/dL Total Bilirubin (0.2-1.3) mg/dL AST (14-36) U/L ALT (4-34) U/L Alkaline Phosphatase (38-126) U/L Total Protein (6.3-8.2) g/dL Albumin (3.5-5.0) g/dL 08/27/20 08/27/20 08/27/20 Range/Units 03:32 03:32 05:27 WBC 28.1 H (3.8-10.6) k/uL RBC 3.66 L (3.80-5.40) m/uL Hgb 11.3 L (11.4-16.0) gm/dL RDW 15.7 H (11.5-15.5) % Neutrophils # (Manual) 23.30 H (1.3-7.7) k/uL Monocytes # (Manual) 1.12 H (0-1.0) k/uL Metamyelocytes # (Man) 0.56 H (0) k/uL Nucleated RBCs 1 H (0-0) /100 WBC ABG pH 7.49 H (7.35-7.45) ABG pCO2 33 L (35-45) mmHg ABG pO2 71 L (83-108) mmHg ABG Total CO2 26 H (19-24) mmol/L Potassium 3.3 L (3.5-5.1) mmol/L Chloride 109 H (98-107) mmol/L BUN 38 H (7-17) mg/dL Creatinine 1.22 H (0.52-1.04) mg/dL Glucose 116 H (74-99) mg/dL POC Glucose (mg/dL) (75-99) mg/dL Calcium 7.8 L (8.4-10.2) mg/dL Total Bilirubin 3.5 H (0.2-1.3) mg/dL AST 330 H (14-36) U/L ALT 566 H (4-34) U/L Alkaline Phosphatase 320 H (38-126) U/L Total Protein 4.8 L (6.3-8.2) g/dL Albumin 2.3 L (3.5-5.0) g/dL 08/27/20 Range/Units 06:16 WBC (3.8-10.6) k/uL RBC (3.80-5.40) m/uL Hgb (11.4-16.0) gm/dL RDW (11.5-15.5) % Neutrophils # (Manual) (1.3-7.7) k/uL Monocytes # (Manual) (0-1.0) k/uL Metamyelocytes # (Man) (0) k/uL Nucleated RBCs (0-0) /100 WBC ABG pH (7.35-7.45) ABG pCO2 (35-45) mmHg ABG pO2 (83-108) mmHg ABG Total CO2 (19-24) mmol/L Potassium (3.5-5.1) mmol/L Chloride (98-107) mmol/L BUN (7-17) mg/dL Creatinine (0.52-1.04) mg/dL Glucose (74-99) mg/dL POC Glucose (mg/dL) 109 H (75-99) mg/dL Calcium (8.4-10.2) mg/dL Total Bilirubin (0.2-1.3) mg/dL AST (14-36) U/L ALT (4-34) U/L Alkaline Phosphatase (38-126) U/L Total Protein (6.3-8.2) g/dL Albumin (3.5-5.0) g/dL Microbiology - Last 24 Hours (Table) 08/26/20 10:15 Blood Culture - Final Blood 08/26/20 08:00 Gram Stain - Preliminary Sputum Sputum Culture - Preliminary 08/24/20 05:40 Blood Culture Gram Stain - Final Blood Blood Culture - Final Staphylococcus aureus 08/24/20 05:45 Anaerobic Culture - Preliminary Chest 08/24/20 05:45 Gram Stain - Final Chest Wound Culture - Final Staphylococcus aureus 08/25/20 04:40 Blood Culture Gram Stain - Preliminary Blood Blood Culture - Preliminary Presumptive Staph aureus Assessment and Plan Assessment: Assessment #1 change in mental status #2 acute respiratory distress and status post intubation yesterday #3 hypotension requiring norepinephrine #3 atrial flutter was controlled heart rate #4 sepsis #5 multiple comorbid conditions Plan #1 continue the current dose of metoprolol #2 continue monitor the kidney function and electrolytes #3 the patient is possibly going to the OR #4 continue holding anticoagulation
[2020-08-27] MEDS: PANTOPRAZOLE 40 MG/10 ML VIAL IVP SCH (08:34)
[2020-08-27] MEDS: CHLORHEXIDINE GLUCONATE 15 ML CUP MUCOUS MEM SCH ×2 (08:34→20:22)
[2020-08-27] MEDS: ASPIRIN 325 MG TAB PO SCH ×2 (08:34→10:36)
[2020-08-27] MEDS: MIDODRINE 5 MG TAB PO SCH ×3 (08:34→21:05)
[2020-08-27] MEDS: DRY MOUTH SPRAY 44.3 SPRAY/44.3 ML SPRAY MUCOUS MEM SCH ×4 (08:35→21:05)
[2020-08-27] MEDS: FUROSEMIDE 10 MG/ML 10 ML VIAL IV SCH (09:08)
--- NOTE | 2020-08-27 09:20 | XR ---
EXAMINATION TYPE: XR chest 1V portable DATE OF EXAM: 08/27/2020 COMPARISON: 08/26/2020 HISTORY: SOB, Follow Up FINDINGS: Indwelling tubes and catheters are unchanged. Diffuse infiltrates persist although. Have improved in the interval. Continued follow-up advised. Stable appearance of the cardio-mediastinal structures at this time. Pleural effusion unchanged. IMPRESSION: 1. Diffuse infiltrates persist although. Have improved in the interval. Continued follow-up advised. Clinical correlation and follow up until resolution is recommended.
--- NOTE | 2020-08-27 09:46 | P.PN ---
Subjective Patient is seen in follow for acute kidney injury and hyperkalemia. Started on hemodialysis August 24. Tolerated 2.5 L ultrafiltration yesterday. Currently on about 11 mics of Levophed. Hemoglobin improved post blood transfusion. Urine output now 50-60 mL an hour. Vital signs are stable. Currently on Levophed. General: The patient appeared well nourished and normally developed. HEENT: Intubated. LUNGS: Breath sounds decreased. HEART: Rate and Rhythm are regular. ABDOMEN: Soft, nontender. EXTREMITITES: 1+ edema. Objective - Vital Signs Vital signs: Vital Signs Temp 98.5 F 08/27/20 08:00 Pulse 93 08/27/20 09:00 Resp 30 H 08/27/20 09:00 BP 108/53 08/27/20 09:00 Pulse Ox 96 08/27/20 09:00 Intake & Output 08/26/20 08/27/20 08/27/20 18:59 06:59 18:59 Intake Total 373.111 2862.586 215.148 Output Total 2780 725 135 Balance -1822.452 417.586 80.148 Weight 86.2 kg 92.2 kg Intake: IV 260 360 40 Cefepime 1 gm In Sodium 100 Chloride 0.9% 50 ml @ 12. 5 mls/hr IVPB Q24H [facility] Rx #:[id number] Sodium Chloride 0.9% 1, 260 260 40 000 ml @ 20 mls/hr IV . Q24H [facility] Rx#:[id number] Intake, IV Titration 617.548 702.586 175.148 Amount Norepinephrine 4 mg In 413.715 384.118 126.776 Sodium Chloride 0.9% 250 ml @ 0.05 MCG/KG/MIN 14. 973 mls/hr IV .[id number] [facility] Rx#:[id number] propofoL 500 mg In Empty 203.833 318.468 48.372 Bag 1 bag @ Titrate IV . Q0M [facility] Rx#:[id number] Tube Feeding 50 50 Other 30 30 Output: Urine 280 725 135 Hemodialysis 2500 Other: Voiding Method Indwelling Catheter Indwelling Catheter ABP, PAP, CO, CI - Last Documented Arterial Blood Pressure 153/92 - Labs CBC & Chem 7: 08/27/20 03:32 02/18/21 03:32 Labs: Abnormal Lab Results - Last 24 Hours (Table) 08/26/20 08/26/20 08/26/20 Range/Units 11:58 17:18 23:59 WBC (3.8-10.6) k/uL RBC (3.80-5.40) m/uL Hgb (11.4-16.0) gm/dL RDW (11.5-15.5) % Neutrophils # (Manual) (1.3-7.7) k/uL Monocytes # (Manual) (0-1.0) k/uL Metamyelocytes # (Man) (0) k/uL Nucleated RBCs (0-0) /100 WBC ABG pH (7.35-7.45) ABG pCO2 (35-45) mmHg ABG pO2 (83-108) mmHg ABG Total CO2 (19-24) mmol/L Potassium (3.5-5.1) mmol/L Chloride (98-107) mmol/L BUN (7-17) mg/dL Creatinine (0.52-1.04) mg/dL Glucose (74-99) mg/dL POC Glucose (mg/dL) 104 H 122 H 117 H (75-99) mg/dL Calcium (8.4-10.2) mg/dL Total Bilirubin (0.2-1.3) mg/dL AST (14-36) U/L ALT (4-34) U/L Alkaline Phosphatase (38-126) U/L Total Protein (6.3-8.2) g/dL Albumin (3.5-5.0) g/dL 08/27/20 08/27/20 08/27/20 Range/Units 03:32 03:32 05:27 WBC 28.1 H (3.8-10.6) k/uL RBC 3.66 L (3.80-5.40) m/uL Hgb 11.3 L (11.4-16.0) gm/dL RDW 15.7 H (11.5-15.5) % Neutrophils # (Manual) 23.30 H (1.3-7.7) k/uL Monocytes # (Manual) 1.12 H (0-1.0) k/uL Metamyelocytes # (Man) 0.56 H (0) k/uL Nucleated RBCs 1 H (0-0) /100 WBC ABG pH 7.49 H (7.35-7.45) ABG pCO2 33 L (35-45) mmHg ABG pO2 71 L (83-108) mmHg ABG Total CO2 26 H (19-24) mmol/L Potassium 3.3 L (3.5-5.1) mmol/L Chloride 109 H (98-107) mmol/L BUN 38 H (7-17) mg/dL Creatinine 1.22 H (0.52-1.04) mg/dL Glucose 116 H (74-99) mg/dL POC Glucose (mg/dL) (75-99) mg/dL Calcium 7.8 L (8.4-10.2) mg/dL Total Bilirubin 3.5 H (0.2-1.3) mg/dL AST 330 H (14-36) U/L ALT 566 H (4-34) U/L Alkaline Phosphatase 320 H (38-126) U/L Total Protein 4.8 L (6.3-8.2) g/dL Albumin 2.3 L (3.5-5.0) g/dL 08/27/20 Range/Units 06:16 WBC (3.8-10.6) k/uL RBC (3.80-5.40) m/uL Hgb (11.4-16.0) gm/dL RDW (11.5-15.5) % Neutrophils # (Manual) (1.3-7.7) k/uL Monocytes # (Manual) (0-1.0) k/uL Metamyelocytes # (Man) (0) k/uL Nucleated RBCs (0-0) /100 WBC ABG pH (7.35-7.45) ABG pCO2 (35-45) mmHg ABG pO2 (83-108) mmHg ABG Total CO2 (19-24) mmol/L Potassium (3.5-5.1) mmol/L Chloride (98-107) mmol/L BUN (7-17) mg/dL Creatinine (0.52-1.04) mg/dL Glucose (74-99) mg/dL POC Glucose (mg/dL) 109 H (75-99) mg/dL Calcium (8.4-10.2) mg/dL Total Bilirubin (0.2-1.3) mg/dL AST (14-36) U/L ALT (4-34) U/L Alkaline Phosphatase (38-126) U/L Total Protein (6.3-8.2) g/dL Albumin (3.5-5.0) g/dL Microbiology - Last 24 Hours (Table) 08/24/20 05:40 Blood Culture Gram Stain - Final Blood Blood Culture - Final Staphylococcus aureus 08/26/20 10:15 Blood Culture - Final Blood 08/26/20 08:00 Gram Stain - Preliminary Sputum Sputum Culture - Preliminary 08/24/20 05:45 Anaerobic Culture - Preliminary Chest 08/24/20 05:45 Gram Stain - Final Chest Wound Culture - Final Staphylococcus aureus 08/25/20 04:40 Blood Culture Gram Stain - Preliminary Blood Blood Culture - Preliminary Presumptive Staph aureus Assessment and Plan Plan: Assessment: 1. Acute kidney injury secondary to ATN secondary to hypotension and cardiorenal syndrome. Baseline creatinine near 1 from earlier this month and peaked at 3.15 this admission. Started on hemodialysis August 24. 2. Hyperkalemia secondary to potassium supplementation, losartan, acute kidney injury as well as severe acidosis. Improved postdialysis. Now hypokalemic from diuresis, being replaced. 3. Metabolic acidosis secondary to acute kidney injury. Status post bicarb drip. Resolved. 4. Hypervolemic hyponatremia. Improved with ultrafiltration. 5. Wound dehiscence of the sternum. On antibiotics. CTS is following. Wound culture positive for staph aureus. Blood culture also positive for staph aureus. 6. Acute hypoxia respiratory failure. 7. Status post CABG in 08/10/2020. 8. Volume overload. Improving with ultrafiltration. 9. Acute blood loss anemia status post 3 units of blood transfusion. No active bleeding. Also received a dose of DDAVP August 25. Maintained on Aranesp. Plan: Hold hemodialysis today. Start Lasix 80 mg IV once daily. Continue to monitor renal function and urine output. Wean FiO2 and vasopressors. Phosphorus normal. Continue to assess daily for need for renal replacement therapy.
[2020-08-27] MEDS: PANTOPRAZOLE 40 MG TABLET PO SCH (10:36)
[2020-08-27] MEDS ORDERED: PHENYLEPHRINE-0.9% NACL SYG 1,000 MCG/10 ML SYRINGE ONE (10:54)
[2020-08-27] MEDS ORDERED: MIDAZOLAM 2 MG/2 ML VIAL ONE (10:54)
[2020-08-27] MEDS ORDERED: fentaNYL (PF) 50 MCG/ML 2 ML AMP ONE (10:54)
--- NOTE | 2020-08-27 11:42 | P.OP ---
Date of Procedure: 08/27/20 Preoperative Diagnosis: Sternal wound infection Postoperative Diagnosis: Same Procedure(s) Performed: Sternal exploration with sternal debridement Anesthesia: HUNTER Surgeon: Epifanio Olivera Estimated Blood Loss (ml): 5 Pathology: other (Sternal debridement) Condition: stable Disposition: ICU Indications for Procedure: 75-year-old female is approximately 3 weeks status post coronary bypass grafting. She presented approximately a week ago and heart failure. While in the hospital she developed drainage from the lower sternal wound. This was opened at the bedside a couple of days ago and packed. Yesterday the wound appeared worse. A computed tomography scan did demonstrate separation of the lower sternum. There was no mediastinal collection. Due to the appearance of the wound surgical debridement was recommended. Operative Findings: There was a copious amount of fibrinous purulent material present in the wound in the subcutaneous area.. Sternal wires had pulled through and the sternum was throughout the sternal body. Four of the 5 cables that had been used for sternal closure were torn through. The lower portion of the sternal body itself was necrotic and fractured. Description of Procedure: Patient was placed supine on the operating table. Gen. anesthesia was induced. Dressing was taken down. There was a large amount of purulent material present in the wound. This was gently debrided with some gauze. Chest was then prepped and draped with Betadine. Sharp debridement of the subcutaneous tissues was performed with scissors of necrotic and fibrinous material. At the level of the sternum the lower 4 cables had torn through the bone. These were excised. A portion of the lower sternum was necrotic and this was resected with rongeurs. Debridement was carried out back to bleeding tissue. Gentle hemostasis was obtained with electrocautery . The anterior portion of the right ventricle was exposed at the base of the wound and was granulated and clean. Once the wound and been appropriately debrided it was irrigated with hydrogen peroxide and then saline. It was packed with a Kerlix soaked with saline and covered with ABDs dressings. Patient was transferred back to ICU.
[2020-08-27] MEDS: CLOPIDOGREL 75 MG TAB PO SCH (11:56)
[2020-08-27 12:09] LABS: Glucose,Whole Blood 111 mg/dL (75-99)
[2020-08-27] MEDS ORDERED: Potassium Replacement Protocol 1 EACH MISC MISCELLANE PRN (12:10)
[2020-08-27] MEDS: LIDOCAINE 5% PATCH TOPICAL SCH ×2 (12:15→12:31)
[2020-08-27] MEDS: FERROUS SULFATE 325 MG TAB PO SCH (12:23)
[2020-08-27] MEDS: POTASSIUM BICARBONATE/CIT AC 20 MEQ TABLET.EFF NG-TUBE SCH ×2 (12:23→14:22)
[2020-08-27] MEDS: ASCORBIC ACID 500 MG TAB PO SCH (12:23)
--- NOTE | 2020-08-27 13:03 | P.PN ---
Subjective Progress Note Date: 08/27/20 Principal diagnosis: Acute hypoxic and hypercapnic respiratory failure secondary to sepsis and septic shock. This is a 75-year-old female with history of coronary artery disease, had recent left main stenosis and she underwent two-vessel CABG with HOLLAND to LAD, and saphenous vein graft to obtuse marginal on 08/10/2020. Patient was seen by us postoperatively on consultation, and she was eventually discharged. Her other medical problems include history of hyponatremia, pulmonary fibrosis, hypertension, dyslipidemia, [id number] smoking history, cervical stenosis and previous surgical disc disease, history of decompression and fusion. Patient was brought into the ER on 08/22/2020, and she was complaining of shortness of breath, patient was hypoxic and she was noted to have O2 saturation in the 80s. Chest x-ray showed evidence of pulmonary edema with bilateral pleural effusions, and patient was treated mostly with diuretics. However over the last 2 days, patient deteriorated, shortness of breath became worse, and today the patient was extremely dyspneic, chest x-ray was getting worse, patient was hypotensive, required fluid boluses, and I was notified about this patient early this morning, advised immediate transfer to the ICU, patient was placed on BiPAP, patient was also seen by nephrology, and her urine output is extremely poor, patient received fluid boluses for hypotension, in the meantime the patient was noted to have significant purulent drainage from her sternal incision site, and she clearly has wound dehiscence and sternal wound infection. Recommended broad-spectrum antibiotics on this patient, started on vancomycin and cefepime, patient was seen by infectious disease on consultation, she was also seen by nephrology planning hemodialysis, and vascular surgery saw the patient and placed a dialysis catheter. In the meantime patient was placed on BiPAP, she received fluids and pressors. I placed a central line in this patient an arterial line. Chest x-ray clearly shows evidence of bilateral interstitial edema. Patient was reevaluated today on 08/25/2020, remains in the ICU, she was on BiPAP earlier today, presently on high flow nasal cannula at 15 L/m. Yesterday she was on BiPAP 12/6 and 60% FiO2 this was overnight. Patient is off pressors, and this morning I stopped her sodium bicarb based on her ABG and based on her bicarb level as well as her electrolytes. Patient is getting hemodialysis again today, she had 2.2 L removed yesterday, and she would likely have the same this morning. Patient is awake, and bit dyspneic, anxious, agitated, chest x-ray continues to show evidence of pulmonary edema. Her sternal wound dehiscence seems to be significant, continues to have some purulent drainage, and that is being addressed by thoracic surgery on the case. Cultures from the sternal wound came back positive for gram-positive cocci in clusters, seen by infectious disease and she was transitioned to daptomycin instead of vancomycin. Hemoglobin is noted to be a bit low today, and I have ordered 1 unit of packed RBCs to be given. IV fluid is at 1 50 mL/h. Sodium bicarb is discontinued. Calcium gluconate was given for low calcium today. ABG showed a pO2 of 74 pCO2 of 40 pH of 7.47 and this was on a 15 L high flow nasal cannula. Hemoglobin is 6.5, and she will receive a unit of packed RBCs today. Electrolytes are normal BUN is 43 creatinine 2.79 Patient was reevaluated today on 08/26/2020, her clinical status deteriorated yesterday, patient was getting extremely agitated, restless, tachypneic tachycardic, she had a relatively normal ABG but based on her clinical picture, I recommended intubation and mechanical ventilation. She is now ventilated on assist control rate of 20 tablets volume is 450 FiO2 is 50% and PEEP is at 5. ABG showed a pO2 of 87 pCO2 of 39 pH of 7.43. She is on multiple drips inc luding IV fluid/0.9 normal saline at 50 mL per hour. Norepinephrine at 0.15 mcg/kg/m, propofol at 50 mcg/kg/m. Patient is being dialyzed and she is presently undergoing dialysis. Yesterday she had about 2 L off with dialysis. Patient is intermittently in A. fib with RVR. Presently in sinus rhythm. Her hemoglobin was noted to be low, received a total of 3 units of packed RBCs since yesterday. Hemoglobin today is 10.8. Patient was seen by infectious disease on consultation, and she was placed on cefepime and daptomycin replacing vancomycin, this is mostly for her presentation of sepsis and septic shock with sternal wound infection. The sternal wound is being addressed and cleaned by t horacic surgery on the case, patient may require surgical intervention may also require wound VAC. Blood cultures from 08/25 are positive for presumptive staph aureus. Wound cultures from the sternal wound, methicillin sensitive staph aureus. Urine cultures are negative so far. Yearly the patient started out of the sternal wound infection with MSSA, went on to develop sepsis, septic shock, and MSSA bacteremia. Hence we'll hold on any PICC line placement at this point, and we'll continue to use the central line Patient was reevaluated today on 08/27/2020, remains in the ICU, intubated and m echanically ventilated. Being treated for septic shock and bacteremia. Cultures have been positive for MSSA. Patient is on assist control rate of 20, volume 450 FiO2 50% PEEP of 5. ABG showed a pO2 of 71 pCO2 of 33 pH of 7.49. Patient is requiring norepinephrine at 0.12 mcg/kg/m, she is also on propofol at 50 mcg/kg/m, IV fluid at KVO. Net fluid balance is -1.4 L over the last 24 hours. Chest x-ray continues to show some evidence of interstitial edema and possibly a small left-sided pleural effusion. Patient has been receiving hemodialysis and ultrafiltration for the last 3 days, and over 6 L of fluid had been removed in the last 3 days. Today the patient has good urine output, renal functioning is improving, no dialysis is planned today, the patient was given Lasix by nephrology. Her urine output is about 50-60 mL per hour. And she was given 80 mg of Lasix daily as recommended by nephrology. Her sternal wound is being addressed by thoracic surgery today, and she may undergo surgery sometime later today. Labs today showed evidence of leukocytosis with WBC of 28.1 hemoglobin is 11.3. Liver enzymes remain elevated. And her BUN is down to 38 creatinine is 1. Objective - Vital Signs Vital signs: Vital Signs Temp 98.6 F 08/27/20 12:00 Pulse 79 08/27/20 12:00 Resp 23 08/27/20 12:00 BP 104/48 08/27/20 12:00 Pulse Ox 94 L 08/27/20 12:00 Intake & Output 08/26/20 08/27/20 08/27/20 18:59 06:59 18:59 Intake Total 730.547 5326.586 465.988 Output Total 2780 725 475 Balance -1822.452 417.586 -9.012 Weight 86.2 kg 92.2 kg Intake: IV 260 360 100 Cefepime 1 gm In Sodium 100 Chloride 0.9% 50 ml @ 12. 5 mls/hr IVPB Q24H [facility] Rx #:[id number] Sodium Chloride 0.9% 1, 260 260 100 000 ml @ 20 mls/hr IV . Q24H [facility] Rx#:[id number] Intake, IV Titration 617.548 702.586 365.988 Amount Norepinephrine 4 mg In 413.715 384.118 228.795 Sodium Chloride 0.9% 250 ml @ 0.05 MCG/KG/MIN 14. 973 mls/hr IV .[id number] [facility] Rx#:[id number] propofoL 500 mg In Empty 203.833 318.468 137.193 Bag 1 bag @ Titrate IV . Q0M [facility] Rx#:[id number] Tube Feeding 50 50 Other 30 30 Output: Urine 280 725 475 Hemodialysis 2500 Other: Voiding Method Indwelling Catheter Indwelling Catheter Indwelling Catheter ABP, PAP, CO, CI - Last Documented Arterial Blood Pressure 153/92 - Exam PHYSICAL EXAMINATION: Revealed a 75-year-old female, obese, intubated, ventilated, sedated. HEENT:, PERRLA, EOMI, nonicteric.Moist mucous membranes endotracheal tube and orogastric tubes are intact. CHEST EXAMINATION: Symmetrical chest expansion, crackles or rhonchi and wheezes noted bilaterally. Surgical sternal incision seems to be open, purulent drainage noted from the lower aspect of the sternum. HEART EXAMINATION Tachycardic, normal S1 and S2, 2/6 systolic murmur throughout the precordium. ABDOMEN: obese, Soft, nontender. Bowel sounds are heard. No organomegaly noted. EXTREMITIES:1+ peripheral pulses with evidence of mild peripheral edema and no calf tenderness noted. NEUROLOGIC EXAMINATION Sedated on propofol, could not assess. Psychiatric Sedated on propofol, could not assess. Skin: No rashes except for open sternal wound with purulent drainage.. - Labs CBC & Chem 7: 08/27/20 03:32 08/27/20 10:40 Labs: Abnormal Lab Results - Last 24 Hours (Table) 08/26/20 08/26/20 08/27/20 Range/Units 17:18 23:59 03:32 WBC 28.1 H (3.8-10.6) k/uL RBC 3.66 L (3.80-5.40) m/uL Hgb 11.3 L (11.4-16.0) gm/dL RDW 15.7 H (11.5-15.5) % Neutrophils # (Manual) 23.30 H (1.3-7.7) k/uL Monocytes # (Manual) 1.12 H (0-1.0) k/uL Metamyelocytes # (Man) 0.56 H (0) k/uL Nucleated RBCs 1 H (0-0) /100 WBC ABG pH (7.35-7.45) ABG pCO2 (35-45) mmHg ABG pO2 (83-108) mmHg ABG Total CO2 (19-24) mmol/L Potassium (3.5-5.1) mmol/L Chloride (98-107) mmol/L BUN (7-17) mg/dL Creatinine (0.52-1.04) mg/dL Glucose (74-99) mg/dL POC Glucose (mg/dL) 122 H 117 H (75-99) mg/dL Calcium (8.4-10.2) mg/dL Total Bilirubin (0.2-1.3) mg/dL AST (14-36) U/L ALT (4-34) U/L Alkaline Phosphatase (38-126) U/L Total Protein (6.3-8.2) g/dL Albumin (3.5-5.0) g/dL 08/27/20 08/27/20 08/27/20 Range/Units 03:32 05:27 06:16 WBC (3.8-10.6) k/uL RBC (3.80-5.40) m/uL Hgb (11.4-16.0) gm/dL RDW (11.5-15.5) % Neutrophils # (Manual) (1.3-7.7) k/uL Monocytes # (Manual) (0-1.0) k/uL Metamyelocytes # (Man) (0) k/uL Nucleated RBCs (0-0) /100 WBC ABG pH 7.49 H (7.35-7.45) ABG pCO2 33 L (35-45) mmHg ABG pO2 71 L (83-108) mmHg ABG Total CO2 26 H (19-24) mmol/L Potassium 3.3 L (3.5-5.1) mmol/L Chloride 109 H (98-107) mmol/L BUN 38 H (7-17) mg/dL Creatinine 1.22 H (0.52-1.04) mg/dL Glucose 116 H (74-99) mg/dL POC Glucose (mg/dL) 109 H (75-99) mg/dL Calcium 7.8 L (8.4-10.2) mg/dL Total Bilirubin 3.5 H (0.2-1.3) mg/dL AST 330 H (14-36) U/L ALT 566 H (4-34) U/L Alkaline Phosphatase 320 H (38-126) U/L Total Protein 4.8 L (6.3-8.2) g/dL Albumin 2.3 L (3.5-5.0) g/dL 08/27/20 08/27/20 Range/Units 10:40 12:06 WBC (3.8-10.6) k/uL RBC (3.80-5.40) m/uL Hgb (11.4-16.0) gm/dL RDW (11.5-15.5) % Neutrophils # (Manual) (1.3-7.7) k/uL Monocytes # (Manual) (0-1.0) k/uL Metamyelocytes # (Man) (0) k/uL Nucleated RBCs (0-0) /100 WBC ABG pH (7.35-7.45) ABG pCO2 (35-45) mmHg ABG pO2 (83-108) mmHg ABG Total CO2 (19-24) mmol/L Potassium 3.4 L (3.5-5.1) mmol/L Chloride (98-107) mmol/L BUN (7-17) mg/dL Creatinine (0.52-1.04) mg/dL Glucose (74-99) mg/dL POC Glucose (mg/dL) 111 H (75-99) mg/dL Calcium (8.4-10.2) mg/dL Total Bilirubin (0.2-1.3) mg/dL AST (14-36) U/L ALT (4-34) U/L Alkaline Phosphatase (38-126) U/L Total Protein (6.3-8.2) g/dL Albumin (3.5-5.0) g/dL Microbiology - Last 24 Hours (Table) 08/24/20 05:32 Blood Culture Gram Stain - Final Blood Blood Culture - Final Staphylococcus aureus 08/25/20 04:40 Blood Culture Gram Stain - Final Blood Blood Culture - Final Staphylococcus aureus 08/26/20 10:15 Blood Culture Gram Stain - Preliminary Blood 08/24/20 05:40 Blood Culture Gram Stain - Final Blood Blood Culture - Final Staphylococcus aureus 08/26/20 10:15 Blood Culture - Final Blood 08/26/20 08:00 Gram Stain - Preliminary Sputum Sputum Culture - Preliminary 08/24/20 05:45 Anaerobic Culture - Preliminary Chest 08/24/20 05:45 Gram Stain - Final Chest Wound Culture - Final Staphylococcus aureus Assessment and Plan Assessment: Impression: Acute hypoxic and hypercapnic respiratory failure, requiring intubation and mechanical ventilation on 08/25/2020. Sepsis secondary from sternal wound infection infection and separation.. Septic shock, primary source is sternal wound infection. This is secondary to MSSA. leukocytosis secondary to above. Acute kidney injury presently on hemodialysis. Acute metabolic acidosis secondary to acute kidney injury and sepsis, resolved Acute transaminitis secondary to hypoperfusion. Acute diastolic congestive heart failure with bilateral pleural effusions History of hypertension History of cervical stenosis Previous tobacco dependence. History of mild interstitial lung disease/pulmonary fibrosis Recommendation: Continue ventilatory support. Continue hemodynamic support. Continue norepinephrine. Continue nutritional support. Will resume enteral feeding after her surgery today per Continue GI and DVT prophylaxis. Continue to monitor daily labs and renal profile. Hold hemodialysis today. Continue sedation while on mechanical ventilation. No plans for any weaning in the next couple of days. Continue antibiotics for sepsis and septic shock as well as sternal wound infection. Remains critically ill, prognosis remains guarded. Discussed her condition with thoracic surgery on the case. We'll continue to follow. Critical care time is over 30 minutes Time with Patient: Greater than 30
[2020-08-27 13:28] LABS: HCT 32.4 % (34.0-46.0); HGB 11.1 gm/dL (11.4-16.0); Hypochromasia Moderate; MCH 31.6 pg (25.0-35.0); MCHC 34.1 g/dL (31.0-37.0); MCV 92.5 fL (80.0-100.0); Mean Platelet Volume 10.4; Poikilocytosis Moderate; RDW 15.9 % (11.5-15.5)
--- NOTE | 2020-08-27 13:28 | P.PN ---
Subjective Progress Note Date: 08/27/20 This is a 75-year-old female patient of Dr. Rich Avila, Dr. Sloan and Dr. Guadalupe. She has a past medical history significant for hypertension, hyperlipidemia, pulmonary fibrosis, asthma, obesity, remote history of tobacco dependence with smoking 32 years ago, osteoarthritis, cervical stenosis post anterior cervical decompression, discectomy and fusion, TIA as a child at age 11 and family history of premature coronary artery disease with her father being diagnosed in his early 50s. Recently, the patient has been experiencing episodes of shortness of breath over the past 6 months with just minimal activity. She also complained of some lower extremity swelling which did resolve with some diuresis. she underwent a stress test which showed anterior wall ischemia with small reversible defect. a 2-D echocardiogram which showed mild aortic valve insufficiency, mild mitral valve regurgitation, mild tricuspid valve regurgitation and left ventricular function to be normal with an ejection fraction of 55%. Subsequently she underwent an elective heart catheterization on 07/27/2020 which demonstrated a left main stenosis with QING with a calculation of 2.6 mm, a 40% stenosis to her mid left anterior descending coronary artery and a 30% stenosis to her right coronary artery. Due to the patient's symptoms and findings on her heart catheterization of left main stenosis a consult was placed to Dr. Sethi from cardiothoracic surgery for further evaluation and treatment recommendations. During her preoperative workup her serum sodium level was found to be 120 and was admitted prior to surgery for treatment of hyponatremia. Last admission On 08/06/2020-08/19/20 the patient was admitted to the hospital for treatment of her hyponatremia, and once her hyponatremia was resolved on 08/10/2020, asubsequently taken to the operating room where Dr. Sethi performed a double vessel coronary artery bypass grafting surgery using the left internal mammary artery to left anterior setting coronary artery, a reverse greater saphenous vein graft from the aorta to the first obtuse marginal coronary artery, endoscopic harvesting of the left greater saphenous vein from the groin Upon completion of the surgery the patient was transferred to the intensive care unit where she was recovered, monitored hemodynamically and where she progressed cardiac rehabilitation phase Her oxygen was titrated down, she continued to work with physical/occupational therapy and cardiac rehabilitation, she was tolerating an oral diet, her pain was well controlled without narcotics and she was ready to be discharged home with [facility] on postoperative day #9. Did not require home O2 on last admission however she required new medication changes including diuretics during that last admission. Patient comes in in worsening shortness of breath anasarca, no chest pain, has BARKER, edma without leg pain new medications from last visit was compliant, requiring lipitor 75bid, tolvaptan. meotprolol 75 bid plavix, lasix 40 mg daily losartain 25 asa 325, ferrous sulfate and fluconazole. patient comes in now for CHF, anarsarc ely pleural effusion, consult with dr Sethi. and cardiology, if okay will be cardiothoracic surgeon can also perform the thoracentesis, however with hypoxemia, also have requested Dr. Gamboa's services. Patient has a hemoglobin of 7.0 on and 3, platelet count of 305, hemoglobin right to admission was 8.0 denies any Hemoccult stools, creatinine was 1.60 from a previous of 0.9 blood pressure is in the low 90s systolic, pulse ox, 90 on 4 L nasal cannula, patient was not discharged with home O2 during her last admission 08/24: A-Team was called for mental status changes. Patient was found to have a blood pressure 99/65, heart rate of 85 and pulse ox of 96% on a nonrebreather with respiratory rate of 32. Patient was transferred to the ICU. She was sta rted on vancomycin and cefepime. Patient has been seen by cardiology with plan to continue vasopressor support, patient may need pleurocentesis. Stat echocardiogram was done to rule out pericardial effusion or tamponade. Patient has been seen by nephrology for acute kidney injury secondary to ATN secondary to hypotension and cardiorenal syndrome. Patient is currently on bicarb drip, status post Lasix 80 mg IV once. Renal replacement therapy to be initiated immediately. Vascular consult in place for a dialysis catheter placement and start hemodialysis today with second treatment tomorrow. Sternal wound was producing thick yellowish brown fluid, was opened approximately 2 cm and deep culture was taken, packed and covered with 4 x 4 dressing. She is requiring vasopressors. She is hypothermic and warming blanket is in place.Patient had minimal output yesterday and none today. She is status post 2.5 L of fluids. 08/25 patient was examined in the ICU. She was able to maintain oxygenation on BiPAP overnight switch to high flow 15 m this morning. Patient did have episodes of agitation last night and was started on Seroquel. She did receive a dose of Seroquel prior to admission and was found to be resting comfortably. Patient is off pressors and bicarbonate drip and metabolic acidosis seemed to have cleared off. On evaluation of patient's lab, WBC is 14.3, hemoglobin 6.5 platelet 208 ABG this morning has a pH of 7.47 CO2 74. Bicarb 29. Sodium has improved to 126 chloride 96 BUN 43 creatinine 2.79 lactic acid has improved to 2.9 calcium 7 liver enzymes elevated AST at 2874 ALT 1469 alkaline phosphatase 192 CRP 356 BNP 13,000 UA does suggest some infection with WBC of 88 hyaline casts 33 protein 2+ urine blood trace nitrite negative leukocyte Estrace negative. Wound cultures positive for presumptive staph aureus. Patient's blood culture from yesterday are positive with presumptive staph aureus. Repeat blood cultures ordered. Patient received 1 unit of PRBCs for low hemoglobin. Urine output has improved to 20-40 mL's per hour. Patient did receive a dose of DDAVP for hyponatremia. Normal saline is running at 50 mL per hour. Did receive hemodialysis today with 2 L ultrafiltration. Patient was also noted to be in A. fib with RVR intermittently and her dose of Lopressor was increased to 25 mg every 8 hours. Continue daptomycin and cefepime for antibiotic coverage. Monitor patient's for QTC prolongation well on Seroquel. Patient has significant dehiscence of wound and may need I&D 08/26 she remains in the ICU, intubated and mechanically ventilated. Patient is going to the OR for debridement today. Patient remains intubated on 50% FiO2 and PEEP of 5, assist control rate of 20volume 450. Continues to require Levophed at 11mcg/ hr . Blood clots and culture positive for MSSA. Urine output is 50-60 mL per hour. Patient continues to be on sedation from propofol at 50 max per KG permanent. IV fluids at KVO. Patient continues to have good urine output after a dose of 80 mg of IV Lasix today. Vision tolerated 2.5 L ultrafiltration yesterday and is started on hemodialysis on August 24. No holiday sedation today. Plan to continue Lasix 80 IV once daily and holding hemodialysis. Anticoagulation held for debridement. review of system could not be obtained due to decreased awakeness Objective - Vital Signs Vital signs: Vital Signs Temp 98.6 F 08/27/20 12:00 Pulse 79 08/27/20 12:00 Resp 23 08/27/20 12:00 BP 104/48 08/27/20 12:00 Pulse Ox 94 L 08/27/20 12:00 Intake & Output 08/26/20 08/27/20 08/27/20 18:59 06:59 18:59 Intake Total 388.129 1518.586 465.988 Output Total 2780 725 475 Balance -1822.452 417.586 -9.012 Weight 86.2 kg 92.2 kg Intake: IV 260 360 100 Cefepime 1 gm In Sodium 100 Chloride 0.9% 50 ml @ 12. 5 mls/hr IVPB Q24H [facility] Rx #:[id number] Sodium Chloride 0.9% 1, 260 260 100 000 ml @ 20 mls/hr IV . Q24H [facility] Rx#:[id number] Intake, IV Titration 617.548 702.586 365.988 Amount Norepinephrine 4 mg In 413.715 384.118 228.795 Sodium Chloride 0.9% 250 ml @ 0.05 MCG/KG/MIN 14. 973 mls/hr IV .[id number] [facility] Rx#:[id number] propofoL 500 mg In Empty 203.833 318.468 137.193 Bag 1 bag @ Titrate IV . Q0M [facility] Rx#:[id number] Tube Feeding 50 50 Other 30 30 Output: Urine 280 725 475 Hemodialysis 2500 Other: Voiding Method Indwelling Catheter Indwelling Catheter Indwelling Catheter ABP, PAP, CO, CI - Last Documented Arterial Blood Pressure 153/92 - Exam PHYSICAL EXAMINATION Gen: This is a 75-year-old female. Patient is resting in bed and appears to be comfortable. She is in the ICU. Tonya blanket in place for hypothermia. HEENT: Head is atraumatic, normocephalic. Pupils equal, round. Sclerae is anicteric. Patient is intubated, central incision dressed NECK: Supple. No JVD. No lymphadenopathy. No thyromegaly. LUNGS: Diminished. No wheezes or rhonchi. No intercostal retractions. HEART: Regular rate and rhythm. 2/6 systolic murmur. Dressing in place to sternal wound with reported purulent drainage. ABDOMEN: Soft. Bowel sounds are present. No masses. No tenderness. EXTREMITIES: 2+ bilat pitting edema. No calf tenderness. NEUROLOGICAL: Patient is sleeping - Labs CBC & Chem 7: 08/27/20 03:32 08/27/20 10:40 Labs: Abnormal Lab Results - Last 24 Hours (Table) 08/26/20 08/26/20 08/27/20 Range/Units 17:18 23:59 03:32 WBC 28.1 H (3.8-10.6) k/uL RBC 3.66 L (3.80-5.40) m/uL Hgb 11.3 L (11.4-16.0) gm/dL RDW 15.7 H (11.5-15.5) % Neutrophils # (Manual) 23.30 H (1.3-7.7) k/uL Monocytes # (Manual) 1.12 H (0-1.0) k/uL Metamyelocytes # (Man) 0.56 H (0) k/uL Nucleated RBCs 1 H (0-0) /100 WBC ABG pH (7.35-7.45) ABG pCO2 (35-45) mmHg ABG pO2 (83-108) mmHg ABG Total CO2 (19-24) mmol/L Potassium (3.5-5.1) mmol/L Chloride (98-107) mmol/L BUN (7-17) mg/dL Creatinine (0.52-1.04) mg/dL Glucose (74-99) mg/dL POC Glucose (mg/dL) 122 H 117 H (75-99) mg/dL Calcium (8.4-10.2) mg/dL Total Bilirubin (0.2-1.3) mg/dL AST (14-36) U/L ALT (4-34) U/L Alkaline Phosphatase (38-126) U/L Total Protein (6.3-8.2) g/dL Albumin (3.5-5.0) g/dL 08/27/20 08/27/20 08/27/20 Range/Units 03:32 05:27 06:16 WBC (3.8-10.6) k/uL RBC (3.80-5.40) m/uL Hgb (11.4-16.0) gm/dL RDW (11.5-15.5) % Neutrophils # (Manual) (1.3-7.7) k/uL Monocytes # (Manual) (0-1.0) k/uL Metamyelocytes # (Man) (0) k/uL Nucleated RBCs (0-0) /100 WBC ABG pH 7.49 H (7.35-7.45) ABG pCO2 33 L (35-45) mmHg ABG pO2 71 L (83-108) mmHg ABG Total CO2 26 H (19-24) mmol/L Potassium 3.3 L (3.5-5.1) mmol/L Chloride 109 H (98-107) mmol/L BUN 38 H (7-17) mg/dL Creatinine 1.22 H (0.52-1.04) mg/dL Glucose 116 H (74-99) mg/dL POC Glucose (mg/dL) 109 H (75-99) mg/dL Calcium 7.8 L (8.4-10.2) mg/dL Total Bilirubin 3.5 H (0.2-1.3) mg/dL AST 330 H (14-36) U/L ALT 566 H (4-34) U/L Alkaline Phosphatase 320 H (38-126) U/L Total Protein 4.8 L (6.3-8.2) g/dL Albumin 2.3 L (3.5-5.0) g/dL 08/27/20 08/27/20 Range/Units 10:40 12:06 WBC (3.8-10.6) k/uL RBC (3.80-5.40) m/uL Hgb (11.4-16.0) gm/dL RDW (11.5-15.5) % Neutrophils # (Manual) (1.3-7.7) k/uL Monocytes # (Manual) (0-1.0) k/uL Metamyelocytes # (Man) (0) k/uL Nucleated RBCs (0-0) /100 WBC ABG pH (7.35-7.45) ABG pCO2 (35-45) mmHg ABG pO2 (83-108) mmHg ABG Total CO2 (19-24) mmol/L Potassium 3.4 L (3.5-5.1) mmol/L Chloride (98-107) mmol/L BUN (7-17) mg/dL Creatinine (0.52-1.04) mg/dL Glucose (74-99) mg/dL POC Glucose (mg/dL) 111 H (75-99) mg/dL Calcium (8.4-10.2) mg/dL Total Bilirubin (0.2-1.3) mg/dL AST (14-36) U/L ALT (4-34) U/L Alkaline Phosphatase (38-126) U/L Total Protein (6.3-8.2) g/dL Albumin (3.5-5.0) g/dL Microbiology - Last 24 Hours (Table) 08/24/20 05:32 Blood Culture Gram Stain - Final Blood Blood Culture - Final Staphylococcus aureus 08/25/20 04:40 Blood Culture Gram Stain - Final Blood Blood Culture - Final Staphylococcus aureus 08/26/20 10:15 Blood Culture Gram Stain - Preliminary Blood 08/24/20 05:40 Blood Culture Gram Stain - Final Blood Blood Culture - Final Staphylococcus aureus 08/26/20 10:15 Blood Culture - Final Blood 08/26/20 08:00 Gram Stain - Preliminary Sputum Sputum Culture - Preliminary 08/24/20 05:45 Anaerobic Culture - Preliminary Chest 08/24/20 05:45 Gram Stain - Final Chest Wound Culture - Final Staphylococcus aureus Assessment and Plan Plan: 1. Sepsis with septic shock with multiorgan failure with metabolic enc ephalopathy, acute kidney injury, acute heart failure, acute respiratory failure. Patient on daptomycin and cefepime. Off vasopressors. Blood culture and wound culture positive for staph aureus. Continue normal saline at 50 mL per hour 2. Acute hypoxemic respiratory failure with pulmonary edema and pleural effusions secondary to CHF, diastolic, EF 55-60% on current TTE, Patient has underlying pulmonary hypertension as well, consult with cardiology, see above. O2 supplementation, patient's currently chest pain-free, negative for covid on lasix 80 m giv daily 3. Acute kidney injury secondary to ATN secondary to hypotension and cardiorenal syndrome. on hemodialysis , no treatment todya 4. Hyperkalemia secondary to potassium supplementation, losartan and acute kidney injury as well as severe acidosis. Consult with nephrology appreciated. Continue medical management. 5. Metabolic acidosis secondary to acute kidney injury. Resolved 6. Metabolic encephalopathy secondary to sepsis, acute kidney injury, acute heart failure, acute respiratory failure, metabolic acidosis and hyperkalemia. 7. Acute diastolic heart failure, EF 55%, mild AI and mild MR and mild TR, also complicated by severe protein calorie malnutrition. lsix 80 mg iv dialy 8. Septic shock with sternal wound infection and dehiscence and possible UTI. s/p sternal exploration and sternal debridement on Infectious disease consult. Patient is currently on daptomycin and cefepime. Wound culture positive for staph 9. Anemia of chronic blood loss from recent surgery. Continue monitor closely and transfuse if hemoglobin 7 or below. On iron supplementations status post 1 unit PRBC on 06/24 10. Hypervolemic Hyponatremia. Status post DDAVP and dialysis s/p 2.5 L ultrafiltration on 08/26 11. CAD, with prior CABG performed on 08/10/2020, two-vessel, involving HOLLAND to LAD, and reverse greater saphenous vein to obtuse marginal coronary artery. held aspirin 325 mg daily, continue Plavix 75 mg daily, Toprol all 75 mg twice a day, 12. Moderate protein calorie malnutrition, with anasarca and hypotension. 13. History of pulmonary fibrosis. Continue duo nebs and albuterol 14. Asthma, mild intermittent. Continue ipratropium albuterol nebulizers 15. Hyperlipidemia. Continue statin daily 16. Hypertension. Currently hypotensive 17. GI prophylaxis. Pantoprazole 18. DVT prophylaxis: SCDs 19. Blood sugar management in a nondiabetic. insulin scale ACHS. 20. Dry mouth patient needs an oral lubricant, status post fluconazole Prognosis guarded DISCHARGE PLAN TBD.
[2020-08-27 13:49] LABS: Platelet Count 95 k/uL (150-450)
[2020-08-27 13:53] LABS: Band Neutrophils % 6 %; Metamyelocytes % 2 %; Myelocytes % 3 %; Neutrophils % (M) 71 %; Nucleated Red Blood Cells 2 /100 WBC (0-0); Promyelocytes % 1 %; Total Cells Counted 200
[2020-08-27 13:54] LABS: Eosinophils # (M) 0.79 k/uL (0-0.7); Large Platelets Present; Lymphocytes # (M) 2.64 k/uL (1.0-4.8); Metamyelocytes # (M) 0.53 k/uL (0); Monocytes # (M) 1.58 k/uL (0-1.0); Myelocytes # (M) 0.79 k/uL (0); Promyelocytes # (M) 0.26 k/uL (0); WBC 26.4 k/uL (3.8-10.6)
[2020-08-27 17:51] LABS: Glucose,Whole Blood 142 mg/dL (75-99)
[2020-08-27] MEDS: SENNOSIDES-DOCUSATE SODIUM 1 EACH TAB PO SCH (20:22)
--- NOTE | 2020-08-27 22:35 | PN ---
PROGRESS NOTE DATE OF SERVICE: 08/27/2020 REASON FOR FOLLOWUP: MSSA bacteremia with sternal wound infection. INTERVAL HISTORY: The patient is currently afebrile. The patient remains intubated on vent. Hemodynamically stable. No significant purulent secretions through ET or any diarrhea reported by the nursing staff. Scheduled for surgical debridement tomorrow. PHYSICAL EXAMINATION: Blood pressure 100/48 with a pulse of 74, temperature 98.4. She is 96% on 50% FiO2. General description is an elderly female lying in bed in no distress. RESPIRATORY SYSTEM: Unlabored breathing with decreased breath sounds at the base. No wheeze. HEART: S1, S2. Regular rate and rhythm. ABDOMEN: Soft. No tenderness. LABS: Hemoglobin is 11.1, white count 26.4. Blood cultures are persistently positive with Staph aureus. DIAGNOSTIC IMPRESSION AND PLAN: Patient with methicillin-susceptible Staphylococcus aeruginosa bacteremia secondary to sternal wound infection in this patient status post sternal exploration and debridement completed this afternoon. Hopefully cleared of any infection. Patient is covered with cefepime Cefazolin and daptomycin; to continue and we will monitor clinical course closely. MMODL / IJN: [id number] /
[2020-08-27 23:09] LABS: Glucose,Whole Blood 114 mg/dL (75-99)
[2020-08-28] MEDS: INSULIN ASPART (NovoLOG) 100 UNIT/ML VIAL SQ SCH ×5 (00:05→23:57)
[2020-08-28] MEDS: SODIUM CHLORIDE 0.9% 1,000 ML IV SCH (01:10)
[2020-08-28 03:58] LABS: HCT 31.6 % (34.0-46.0); HGB 10.7 gm/dL (11.4-16.0); Hypochromasia Moderate; MCH 30.9 pg (25.0-35.0); MCHC 33.8 g/dL (31.0-37.0); MCV 91.7 fL (80.0-100.0); Poikilocytosis Moderate; RBC 3.45 m/uL (3.80-5.40)
[2020-08-28 04:13] LABS: Albumin 2.1 g/dL (3.5-5.0); Calcium 7.8 mg/dL (8.4-10.2); Potassium 3.5 mmol/L (3.5-5.1); Total Bilirubin 3.5 mg/dL (0.2-1.3); Total Protein 4.7 g/dL (6.3-8.2)
[2020-08-28 04:40] LABS: Platelet Count 78 k/uL (150-450)
[2020-08-28 04:56] LABS: ABG Base Excess 2.2 mmol/L; ABG HCO3 25 mmol/L (21-25); ABG Oxygen Saturation 92.1 % (94-97); ABG PCO2 30 mmHg (35-45); ABG PH 7.53 (7.35-7.45); ABG TCO2 26 mmol/L (19-24); Allen Test Performed? Yes
[2020-08-28] MEDS: POTASSIUM BICARBONATE/CIT AC 20 MEQ TABLET.EFF NG-TUBE SCH ×2 (04:56→05:41)
[2020-08-28 05:00] LABS: Band Neutrophils % 7 %; Eosinophils # (M) 0.97 k/uL (0-0.7); Metamyelocytes # (M) 0.73 k/uL (0); Metamyelocytes % 3 %; Monocytes # (M) 0.97 k/uL (0-1.0); Myelocytes # (M) 0.49 k/uL (0); Myelocytes % 2 %; Neutrophils % (M) 74 %; Nucleated Red Blood Cells 2 /100 WBC (0-0); Total Cells Counted 200; WBC 24.3 k/uL (3.8-10.6)
[2020-08-28] MEDS ORDERED: POTASSIUM CHLORIDE 20 MEQ in WATER FOR INJECTION 1 100ML.BAG IVPB SCH (05:00)
[2020-08-28] MEDS: CEFEPIME 1 GM in SODIUM CHLORIDE 0.9% 50 ML IVPB SCH (05:00)
[2020-08-28 05:01] LABS: Polychromasia Present
[2020-08-28 05:02] LABS: Anisocytosis (M) Present
[2020-08-28] MEDS: NOREPINEPHRINE 4 MG in SODIUM CHLORIDE 0.9% 250 ML IV SCH ×2 (06:39→19:18)
[2020-08-28] MEDS: IPRATROPIUM-ALBUTEROL 3 ML NEB INHALATION PRN (07:28)
[2020-08-28] MEDS: ACETAMINOPHEN TAB 325 MG TAB PO PRN ×2 (08:06→12:30)
--- NOTE | 2020-08-28 08:06 | P.PN ---
Subjective Progress Note Date: 08/28/20 Principal diagnosis: Shortness of breath, acute diastolic heart failure, bilateral pleural effusion, lactic acidosis, hypercapnic respiratory failure requiring BiPAP followed by me chanical ventilation, acute kidney injury, acute hyperkalemia, hyponatremia, acute transaminitis, hypotension requiring vasopressors use, acute anemia. Previous medical history of coronary artery disease with left main stenosis status post 2 vessel CABG on 08/10/2020 with expected postoperative acute blood loss anemia, hypotension, and urinary retention as well as candidal stomatititus, hyponatremia, pulmonary fibrosis, asthma, hypertension, hyperlipidemia, previous tobacco dependence, obesity, osteoarthritis, cervical stenosis post anterior cervical disc decompression, discectomy and fusion, TIA as a child, family history of premature coronary artery disease. Paroxysmal Afib w/ RVR POD #1 sternal exploration with sternal debridement The patient was seen and examined at the bedside in the ICU. Remains sedated on propofol and mechanically ventilated, sedation was increased overnight as patient was more restless and breathing over the vent. Appears comfortable at this time. T-max 100.1 in the last 24 hours, WBC 24.3 with 7% bands, blood cultures positive for MSSA, sternal wound culture positive for MSSA. Sputum culture pending, preliminary negative. Patient remains on IV cefepime and daptomycin per infectious disease. Currently in NSR with HR in the 90s. Blood pressure stable on IV Levophed, dose has been titrated down significantly. Kidney function and liver function is slightly improved, BUN 46, creatinine 0.9, AST 112, ALT 315. Hemoglobin 10.7 this morning. Tube feeds were continue. Dialysis was held yesterday, started on IV lasix per nephrology. Patient went to the OR for sternal wound exploration and debridement, all but 1 wire removed, chest left open with sterile saline packing, plan for daily dressing changes per cardiothoracic with eventual wound vac placement. Family updated daily by phone. Objective - Vital Signs Vital signs: Vital Signs Temp 99.5 F 08/28/20 04:00 Pulse 88 08/28/20 07:28 Resp 30 H 08/28/20 07:00 BP 119/46 08/28/20 07:00 Pulse Ox 95 08/28/20 07:00 Intake & Output 08/27/20 08/28/20 08/28/20 18:59 06:59 18:59 Intake Total 432.576 0969.947 43 Output Total 795 965 75 Balance 99.041 118.947 -32 Weight 90.5 kg Intake: IV 220 320 20 Cefepime 1 gm In Sodium 50 Chloride 0.9% 50 ml @ 12. 5 mls/hr IVPB Q24H [facility] Rx #:[id number] Sodium Chloride 0.9% 1, 220 270 20 000 ml @ 20 mls/hr IV . Q24H [facility] Rx#:[id number] Intake, IV Titration 674.041 550.947 Amount Norepinephrine 4 mg In 398.444 224.498 Sodium Chloride 0.9% 250 ml @ 0.05 MCG/KG/MIN 14. 973 mls/hr IV .[id number] [facility] Rx#:[id number] propofoL 500 mg In Empty 275.597 326.449 Bag 1 bag @ Titrate IV . Q0M [facility] Rx#:[id number] Tube Feeding 153 23 Other 60 Output: Urine 795 965 75 Other: Voiding Method Indwelling Catheter Indwelling Catheter ABP, PAP, CO, CI - Last Documented Arterial Blood Pressure 153/92 - Constitutional Constitutional Comment(s): Appears comfortable but breathing over the vent - Respiratory Details: Lungs sounds diminished in the bases bilaterally. Respirations even, nonlabored on mechanical ventilation. Current vent settings FiO2 50%, tidal volume 450, respiratory rate 20, PEEP 5. ABGs this morning on those settings 7.53/30/57/25/92%/2.2. 7.5 ET tube present, 22 at the lip. - Cardiovascular Details: S1, S2 present. Regular rate and rhythm, sinus rhythm with heart rate in the 90s. Palpable peripheral pulses bilaterally. Generalized edema present. Heart hugger, antiembolism stockings, SCDs present. Right femoral triple-lumen central line present. - Gastrointestinal Gastrointestinal Comment(s): Abdomen soft, nontender, nondistended. Active bowel sounds present 4 quadrants. OG tube present, tube feedings continue - Genitourinary Genitourinary Comment(s): Yu present draining yellow urine, 40-100 mL/hr. Right groin temporary dialysis catheter present - Integumentary Integumentary Comment(s): Anterior chest incision open, packed with sterile saline soaked kerlix and covered w/ ABD pad. Left lower extremity EVH site well approximated without redness or drainage, bruising present - Neurologic Neurologic: Present: CNII-XII intact - Psychiatric Psychiatric Comment(s): Currently sedated with propofol on mechanical ventilation, could not assess - Allied health notes Allied health notes reviewed: nursing - Labs CBC & Chem 7: 08/28/20 03:50 08/28/20 03:50 Labs: Abnormal Lab Results - Last 24 Hours (Table) 08/27/20 08/27/20 08/27/20 Range/Units 10:40 12:06 12:08 WBC 26.4 H (3.8-10.6) k/uL RBC 3.50 L (3.80-5.40) m/uL Hgb 11.1 L (11.4-16.0) gm/dL Hct 32.4 L (34.0-46.0) % RDW 15.9 H (11.5-15.5) % Plt Count 95 L (150-450) k/uL Neutrophils # (Manual) 20.30 H (1.3-7.7) k/uL Monocytes # (Manual) 1.58 H (0-1.0) k/uL Eosinophils # (Manual) 0.79 H (0-0.7) k/uL Metamyelocytes # (Man) 0.53 H (0) k/uL Myelocytes # (Manual) 0.79 H (0) k/uL Promyelocytes # (Man) 0.26 H (0) k/uL Nucleated RBCs 2 H (0-0) /100 WBC ABG pH (7.35-7.45) ABG pCO2 (35-45) mmHg ABG pO2 (83-108) mmHg ABG Total CO2 (19-24) mmol/L ABG O2 Saturation (94-97) % Potassium 3.4 L (3.5-5.1) mmol/L Chloride (98-107) mmol/L BUN (7-17) mg/dL Glucose (74-99) mg/dL POC Glucose (mg/dL) 111 H (75-99) mg/dL Calcium (8.4-10.2) mg/dL Total Bilirubin (0.2-1.3) mg/dL AST (14-36) U/L ALT (4-34) U/L Alkaline Phosphatase (38-126) U/L Total Protein (6.3-8.2) g/dL Albumin (3.5-5.0) g/dL 08/27/20 08/27/20 08/28/20 Range/Units 17:39 23:08 03:50 WBC 24.3 H (3.8-10.6) k/uL RBC 3.45 L (3.80-5.40) m/uL Hgb 10.7 L (11.4-16.0) gm/dL Hct 31.6 L (34.0-46.0) % RDW 16.0 H (11.5-15.5) % Plt Count 78 L (150-450) k/uL Neutrophils # (Manual) 19.60 H (1.3-7.7) k/uL Monocytes # (Manual) (0-1.0) k/uL Eosinophils # (Manual) 0.97 H (0-0.7) k/uL Metamyelocytes # (Man) 0.73 H (0) k/uL Myelocytes # (Manual) 0.49 H (0) k/uL Promyelocytes # (Man) (0) k/uL Nucleated RBCs 2 H (0-0) /100 WBC ABG pH (7.35-7.45) ABG pCO2 (35-45) mmHg ABG pO2 (83-108) mmHg ABG Total CO2 (19-24) mmol/L ABG O2 Saturation (94-97) % Potassium (3.5-5.1) mmol/L Chloride (98-107) mmol/L BUN (7-17) mg/dL Glucose (74-99) mg/dL POC Glucose (mg/dL) 142 H 114 H (75-99) mg/dL Calcium (8.4-10.2) mg/dL Total Bilirubin (0.2-1.3) mg/dL AST (14-36) U/L ALT (4-34) U/L Alkaline Phosphatase (38-126) U/L Total Protein (6.3-8.2) g/dL Albumin (3.5-5.0) g/dL 08/28/20 08/28/20 Range/Units 03:50 04:45 WBC (3.8-10.6) k/uL RBC (3.80-5.40) m/uL Hgb (11.4-16.0) gm/dL Hct (34.0-46.0) % RDW (11.5-15.5) % Plt Count (150-450) k/uL Neutrophils # (Manual) (1.3-7.7) k/uL Monocytes # (Manual) (0-1.0) k/uL Eosinophils # (Manual) (0-0.7) k/uL Metamyelocytes # (Man) (0) k/uL Myelocytes # (Manual) (0) k/uL Promyelocytes # (Man) (0) k/uL Nucleated RBCs (0-0) /100 WBC ABG pH 7.53 H (7.35-7.45) ABG pCO2 30 L (35-45) mmHg ABG pO2 57 L* (83-108) mmHg ABG Total CO2 26 H (19-24) mmol/L ABG O2 Saturation 92.1 L (94-97) % Potassium (3.5-5.1) mmol/L Chloride 110 H (98-107) mmol/L BUN 46 H (7-17) mg/dL Glucose 111 H (74-99) mg/dL POC Glucose (mg/dL) (75-99) mg/dL Calcium 7.8 L (8.4-10.2) mg/dL Total Bilirubin 3.5 H (0.2-1.3) mg/dL AST 112 H (14-36) U/L ALT 315 H (4-34) U/L Alkaline Phosphatase 312 H (38-126) U/L Total Protein 4.7 L (6.3-8.2) g/dL Albumin 2.1 L (3.5-5.0) g/dL Microbiology - Last 24 Hours (Table) 08/26/20 10:15 Blood Culture Gram Stain - Preliminary Blood Blood Culture - Preliminary Presumptive Staph aureus 08/24/20 05:32 Blood Culture Gram Stain - Final Blood Blood Culture - Final Staphylococcus aureus 08/25/20 04:40 Blood Culture Gram Stain - Final Blood Blood Culture - Final Staphylococcus aureus 08/24/20 05:40 Blood Culture Gram Stain - Final Blood Blood Culture - Final Staphylococcus aureus 08/26/20 10:15 Blood Culture - Final Blood - Imaging and Cardiology Chest x-ray: image reviewed Assessment and Plan Assessment: 1. Shortness of breath, acute diastolic heart failure, EF 55-60% on current TTE, bilateral pleural effusions 2. Lactic acidosis, septic shock, blood cultures positive for MSSA 3. Hypercapnic, hypoxic respiratory failure requiring BiPAP, with subsequent intubation and mechanical ventilation 4. Open sternal wound, surgically created, positive for MSSA, S/P surgical exploration and debridement 5. Leukocytosis with bandemia 6. Acute kidney injury, metabolic acidosis 7. Acute hyperkalemia, resolved 8. Acute transaminitis secondary to hypoperfusion 9. History of hypertension, currently hypotensive requiring vasopressors 10. Acute anemia, post transfusion PRBCs, on 11. Coronary artery disease with left main stenosis status post 2 vessel CABG on 08/10/2020 with expected postoperative acute blood loss anemia, hypotension, and urinary retention as well as candidal stomatititus 12. Hyponatremia, resolved 13. Pulmonary fibrosis, asthma 14. Hyperlipidemia, treated 15. Previous tobacco dependence 16. Obesity 17. Paroxysmal afib w/ RVR, atrial flutter Plan: 1. Ventilator management per pulmonary medicine 2. Nephrology following, avoid nephrotoxins, HD/lasix per nephro 3. Infectious disease following, final blood cultures/sternal wound cultures positive for MSSA, continue antibiotics 4. Continue aspirin, statin, Plavix, beta sisi therapy. Avoid amio 2/2 transaminitis. Keep SBP 120-140 for perfusion of organs. Wean levo as tolerate d 5. Will monitor daily labs and x-rays, ABGs. 6. Cardiothoracic surgery to change sternal dressing daily, RNs may reinforce but not to remove dressing, will eventually need wound vac 7. GI/DVT prophylaxis 8. Will add in additional pain medication 9. Continue tube feeding for nutrition 10. Will update family daily 11. More recommendations to follow Time with Patient: Greater than 30
[2020-08-28] MEDS: MIDODRINE 5 MG TAB PO SCH ×3 (08:09→21:21)
[2020-08-28] MEDS: CLOPIDOGREL 75 MG TAB PO SCH (08:09)
[2020-08-28] MEDS: ASPIRIN 325 MG TAB PO SCH (08:09)
[2020-08-28] MEDS: METOPROLOL TARTRATE 25 MG TAB PO SCH ×2 (08:09→16:18)
[2020-08-28] MEDS: fentaNYL (PF) 50 MCG/ML 2 ML AMP IVP PRN ×2 (08:10→12:31)
[2020-08-28] MEDS: HEPARIN SODIUM,PORCINE 5,000 UNIT/ML 1 ML VIAL SQ SCH ×2 (08:10→16:19)
[2020-08-28] MEDS: FUROSEMIDE 10 MG/ML 10 ML VIAL IV SCH (08:10)
[2020-08-28] MEDS: CHLORHEXIDINE GLUCONATE 15 ML CUP MUCOUS MEM SCH ×2 (08:10→21:21)
[2020-08-28] MEDS: PANTOPRAZOLE 40 MG/10 ML VIAL IVP SCH (08:10)
--- NOTE | 2020-08-28 08:34 | XR ---
EXAMINATION TYPE: XR chest 1V portable DATE OF EXAM: 08/28/2020 COMPARISON: 08/27/2020 HISTORY: SOB, Follow Up FINDINGS: Indwelling tubes and catheters are unchanged. Infiltrates with a pulmonary venous congestion and small effusions are unchanged in the interval. Stable appearance of the cardio-mediastinal structures at this time. Pleural effusion unchanged. IMPRESSION: 1. Stable portable chest. Clinical correlation and follow up until resolution is recommended.
[2020-08-28] MEDS: DRY MOUTH SPRAY 44.3 SPRAY/44.3 ML SPRAY MUCOUS MEM SCH ×4 (09:22→21:21)
--- NOTE | 2020-08-28 09:29 | P.PN ---
Subjective Progress Note Date: 08/28/20 Principal diagnosis: Hypotension This is a 75-year-old female patient who underwent coronary artery bypass grafting times to 2 weeks ago with also history of pulmonary fibrosis as well as multiple comorbid conditions was admitted to the hospital initiated with increasing shortness of breath without any symptoms of chest pain or chest discomfort. Subsequently the patient was admitted to the [address] [place] [address] unit and subsequently she was transferred to the intensive. For increasing shortness of breath and also change in mental status. She was diagnosed with sepsis secondary to infection in the sternum. Subsequently the patient went into the OR yesterday and she underwent wound debridement. The patient was seen today August 282020. She is converted to normal sinus mechanism with she is not on any anticoagulation at this point because she possibly go to the OR again. She still a small dose of norepinephrine which we are trying to wean her from. She still intubated and she is on mechanical ventilation. Objective - Vital Signs Vital signs: Vital Signs Temp 101.6 F H 08/28/20 08:00 Pulse 80 08/28/20 09:15 Resp 27 H 08/28/20 09:15 BP 112/49 08/28/20 09:15 Pulse Ox 96 08/28/20 09:15 Intake & Output 08/27/20 08/28/20 08/28/20 18:59 06:59 18:59 Intake Total 929.656 6625.947 247.782 Output Total 795 965 395 Balance 99.041 118.947 -147.218 Weight 90.5 kg Intake: IV 220 320 60 Cefepime 1 gm In Sodium 50 Chloride 0.9% 50 ml @ 12. 5 mls/hr IVPB Q24H [facility] Rx #:[id number] Sodium Chloride 0.9% 1, 220 270 60 000 ml @ 20 mls/hr IV . Q24H [facility] Rx#:[id number] Intake, IV Titration 674.041 550.947 88.782 Amount Norepinephrine 4 mg In 398.444 224.498 38.782 Sodium Chloride 0.9% 250 ml @ 0.05 MCG/KG/MIN 14. 973 mls/hr IV .[id number] [facility] Rx#:[id number] propofoL 500 mg In Empty 275.597 326.449 50 Bag 1 bag @ Titrate IV . Q0M [facility] Rx#:[id number] Tube Feeding 153 69 Other 60 30 Output: Urine 795 965 395 Other: Voiding Method Indwelling Catheter Indwelling Catheter ABP, PAP, CO, CI - Last Documented Arterial Blood Pressure 153/92 - Constitutional General appearance: Present: no acute distress - Respiratory Respiratory: bilateral: diminished - Cardiovascular Rhythm: regular - Labs CBC & Chem 7: 08/28/20 03:50 08/28/20 03:50 Labs: Abnormal Lab Results - Last 24 Hours (Table) 08/27/20 08/27/20 08/27/20 Range/Units 10:40 12:06 12:08 WBC 26.4 H (3.8-10.6) k/uL RBC 3.50 L (3.80-5.40) m/uL Hgb 11.1 L (11.4-16.0) gm/dL Hct 32.4 L (34.0-46.0) % RDW 15.9 H (11.5-15.5) % Plt Count 95 L (150-450) k/uL Neutrophils # (Manual) 20.30 H (1.3-7.7) k/uL Monocytes # (Manual) 1.58 H (0-1.0) k/uL Eosinophils # (Manual) 0.79 H (0-0.7) k/uL Metamyelocytes # (Man) 0.53 H (0) k/uL Myelocytes # (Manual) 0.79 H (0) k/uL Promyelocytes # (Man) 0.26 H (0) k/uL Nucleated RBCs 2 H (0-0) /100 WBC ABG pH (7.35-7.45) ABG pCO2 (35-45) mmHg ABG pO2 (83-108) mmHg ABG Total CO2 (19-24) mmol/L ABG O2 Saturation (94-97) % Potassium 3.4 L (3.5-5.1) mmol/L Chloride (98-107) mmol/L BUN (7-17) mg/dL Glucose (74-99) mg/dL POC Glucose (mg/dL) 111 H (75-99) mg/dL Calcium (8.4-10.2) mg/dL Total Bilirubin (0.2-1.3) mg/dL AST (14-36) U/L ALT (4-34) U/L Alkaline Phosphatase (38-126) U/L Total Protein (6.3-8.2) g/dL Albumin (3.5-5.0) g/dL 08/27/20 08/27/20 08/28/20 Range/Units 17:39 23:08 03:50 WBC 24.3 H (3.8-10.6) k/uL RBC 3.45 L (3.80-5.40) m/uL Hgb 10.7 L (11.4-16.0) gm/dL Hct 31.6 L (34.0-46.0) % RDW 16.0 H (11.5-15.5) % Plt Count 78 L (150-450) k/uL Neutrophils # (Manual) 19.60 H (1.3-7.7) k/uL Monocytes # (Manual) (0-1.0) k/uL Eosinophils # (Manual) 0.97 H (0-0.7) k/uL Metamyelocytes # (Man) 0.73 H (0) k/uL Myelocytes # (Manual) 0.49 H (0) k/uL Promyelocytes # (Man) (0) k/uL Nucleated RBCs 2 H (0-0) /100 WBC ABG pH (7.35-7.45) ABG pCO2 (35-45) mmHg ABG pO2 (83-108) mmHg ABG Total CO2 (19-24) mmol/L ABG O2 Saturation (94-97) % Potassium (3.5-5.1) mmol/L Chloride (98-107) mmol/L BUN (7-17) mg/dL Glucose (74-99) mg/dL POC Glucose (mg/dL) 142 H 114 H (75-99) mg/dL Calcium (8.4-10.2) mg/dL Total Bilirubin (0.2-1.3) mg/dL AST (14-36) U/L ALT (4-34) U/L Alkaline Phosphatase (38-126) U/L Total Protein (6.3-8.2) g/dL Albumin (3.5-5.0) g/dL 08/28/20 08/28/20 Range/Units 03:50 04:45 WBC (3.8-10.6) k/uL RBC (3.80-5.40) m/uL Hgb (11.4-16.0) gm/dL Hct (34.0-46.0) % RDW (11.5-15.5) % Plt Count (150-450) k/uL Neutrophils # (Manual) (1.3-7.7) k/uL Monocytes # (Manual) (0-1.0) k/uL Eosinophils # (Manual) (0-0.7) k/uL Metamyelocytes # (Man) (0) k/uL Myelocytes # (Manual) (0) k/uL Promyelocytes # (Man) (0) k/uL Nucleated RBCs (0-0) /100 WBC ABG pH 7.53 H (7.35-7.45) ABG pCO2 30 L (35-45) mmHg ABG pO2 57 L* (83-108) mmHg ABG Total CO2 26 H (19-24) mmol/L ABG O2 Saturation 92.1 L (94-97) % Potassium (3.5-5.1) mmol/L Chloride 110 H (98-107) mmol/L BUN 46 H (7-17) mg/dL Glucose 111 H (74-99) mg/dL POC Glucose (mg/dL) (75-99) mg/dL Calcium 7.8 L (8.4-10.2) mg/dL Total Bilirubin 3.5 H (0.2-1.3) mg/dL AST 112 H (14-36) U/L ALT 315 H (4-34) U/L Alkaline Phosphatase 312 H (38-126) U/L Total Protein 4.7 L (6.3-8.2) g/dL Albumin 2.1 L (3.5-5.0) g/dL Microbiology - Last 24 Hours (Table) 08/26/20 08:00 Gram Stain - Preliminary Sputum Sputum Culture - Preliminary Presumptive Staph aureus 08/24/20 05:32 Blood Culture Gram Stain - Final Blood Blood Culture - Final Staphylococcus aureus 08/26/20 10:15 Blood Culture Gram Stain - Preliminary Blood Blood Culture - Preliminary Presumptive Staph aureus 08/25/20 04:40 Blood Culture Gram Stain - Final Blood Blood Culture - Final Staphylococcus aureus 08/24/20 05:40 Blood Culture Gram Stain - Final Blood Blood Culture - Final Staphylococcus aureus 08/26/20 10:15 Blood Culture - Final Blood Assessment and Plan Assessment: Assessment #1 change in mental status #2 acute respiratory distress and status post intubation yesterday #3 hypotension requiring norepinephrine #3 atrial flutter was controlled heart rate #4 sepsis and status post wound debridement #5 multiple comorbid conditions Plan #1 continue the current dose of metoprolol #2 continue monitor the kidney function and electrolytes #3 try to wean the patient from norepinephrine
--- NOTE | 2020-08-28 09:35 | P.PN ---
Subjective Patient is seen in follow for acute kidney injury and hyperkalemia. Started on hemodialysis August 24. Last hemodialysis August 26. Currently on about 10 mics of Levophed. Nonoliguric. Receiving IV Lasix. Also on tube feeding. Vital signs are stable. Currently on Levophed. General: The patient appeared well nourished and normally developed. HEENT: Intubated. LUNGS: Breath sounds decreased. HEART: Rate and Rhythm are regular. ABDOMEN: Soft, nontender. EXTREMITITES: 1+ edema. Objective - Vital Signs Vital signs: Vital Signs Temp 101.6 F H 08/28/20 08:00 Pulse 80 08/28/20 09:15 Resp 27 H 08/28/20 09:15 BP 112/49 08/28/20 09:15 Pulse Ox 96 08/28/20 09:15 Intake & Output 08/27/20 08/28/20 08/28/20 18:59 06:59 18:59 Intake Total 585.158 8484.947 295.430 Output Total 795 965 395 Balance 99.041 118.947 -99.570 Weight 90.5 kg Intake: IV 220 320 60 Cefepime 1 gm In Sodium 50 Chloride 0.9% 50 ml @ 12. 5 mls/hr IVPB Q24H [facility] Rx #:[id number] Sodium Chloride 0.9% 1, 220 270 60 000 ml @ 20 mls/hr IV . Q24H [facility] Rx#:[id number] Intake, IV Titration 674.041 550.947 136.430 Amount Norepinephrine 4 mg In 398.444 224.498 38.782 Sodium Chloride 0.9% 250 ml @ 0.05 MCG/KG/MIN 14. 973 mls/hr IV .[id number] [facility] Rx#:[id number] propofoL 500 mg In Empty 275.597 326.449 97.648 Bag 1 bag @ Titrate IV . Q0M [facility] Rx#:[id number] Tube Feeding 153 69 Other 60 30 Output: Urine 795 965 395 Other: Voiding Method Indwelling Catheter Indwelling Catheter ABP, PAP, CO, CI - Last Documented Arterial Blood Pressure 153/92 - Labs CBC & Chem 7: 08/28/20 03:50 08/28/20 03:50 Labs: Abnormal Lab Results - Last 24 Hours (Table) 08/27/20 08/27/20 08/27/20 Range/Units 10:40 12:06 12:08 WBC 26.4 H (3.8-10.6) k/uL RBC 3.50 L (3.80-5.40) m/uL Hgb 11.1 L (11.4-16.0) gm/dL Hct 32.4 L (34.0-46.0) % RDW 15.9 H (11.5-15.5) % Plt Count 95 L (150-450) k/uL Neutrophils # (Manual) 20.30 H (1.3-7.7) k/uL Monocytes # (Manual) 1.58 H (0-1.0) k/uL Eosinophils # (Manual) 0.79 H (0-0.7) k/uL Metamyelocytes # (Man) 0.53 H (0) k/uL Myelocytes # (Manual) 0.79 H (0) k/uL Promyelocytes # (Man) 0.26 H (0) k/uL Nucleated RBCs 2 H (0-0) /100 WBC ABG pH (7.35-7.45) ABG pCO2 (35-45) mmHg ABG pO2 (83-108) mmHg ABG Total CO2 (19-24) mmol/L ABG O2 Saturation (94-97) % Potassium 3.4 L (3.5-5.1) mmol/L Chloride (98-107) mmol/L BUN (7-17) mg/dL Glucose (74-99) mg/dL POC Glucose (mg/dL) 111 H (75-99) mg/dL Calcium (8.4-10.2) mg/dL Total Bilirubin (0.2-1.3) mg/dL AST (14-36) U/L ALT (4-34) U/L Alkaline Phosphatase (38-126) U/L Total Protein (6.3-8.2) g/dL Albumin (3.5-5.0) g/dL 08/27/20 08/27/20 08/28/20 Range/Units 17:39 23:08 03:50 WBC 24.3 H (3.8-10.6) k/uL RBC 3.45 L (3.80-5.40) m/uL Hgb 10.7 L (11.4-16.0) gm/dL Hct 31.6 L (34.0-46.0) % RDW 16.0 H (11.5-15.5) % Plt Count 78 L (150-450) k/uL Neutrophils # (Manual) 19.60 H (1.3-7.7) k/uL Monocytes # (Manual) (0-1.0) k/uL Eosinophils # (Manual) 0.97 H (0-0.7) k/uL Metamyelocytes # (Man) 0.73 H (0) k/uL Myelocytes # (Manual) 0.49 H (0) k/uL Promyelocytes # (Man) (0) k/uL Nucleated RBCs 2 H (0-0) /100 WBC ABG pH (7.35-7.45) ABG pCO2 (35-45) mmHg ABG pO2 (83-108) mmHg ABG Total CO2 (19-24) mmol/L ABG O2 Saturation (94-97) % Potassium (3.5-5.1) mmol/L Chloride (98-107) mmol/L BUN (7-17) mg/dL Glucose (74-99) mg/dL POC Glucose (mg/dL) 142 H 114 H (75-99) mg/dL Calcium (8.4-10.2) mg/dL Total Bilirubin (0.2-1.3) mg/dL AST (14-36) U/L ALT (4-34) U/L Alkaline Phosphatase (38-126) U/L Total Protein (6.3-8.2) g/dL Albumin (3.5-5.0) g/dL 08/28/20 08/28/20 Range/Units 03:50 04:45 WBC (3.8-10.6) k/uL RBC (3.80-5.40) m/uL Hgb (11.4-16.0) gm/dL Hct (34.0-46.0) % RDW (11.5-15.5) % Plt Count (150-450) k/uL Neutrophils # (Manual) (1.3-7.7) k/uL Monocytes # (Manual) (0-1.0) k/uL Eosinophils # (Manual) (0-0.7) k/uL Metamyelocytes # (Man) (0) k/uL Myelocytes # (Manual) (0) k/uL Promyelocytes # (Man) (0) k/uL Nucleated RBCs (0-0) /100 WBC ABG pH 7.53 H (7.35-7.45) ABG pCO2 30 L (35-45) mmHg ABG pO2 57 L* (83-108) mmHg ABG Total CO2 26 H (19-24) mmol/L ABG O2 Saturation 92.1 L (94-97) % Potassium (3.5-5.1) mmol/L Chloride 110 H (98-107) mmol/L BUN 46 H (7-17) mg/dL Glucose 111 H (74-99) mg/dL POC Glucose (mg/dL) (75-99) mg/dL Calcium 7.8 L (8.4-10.2) mg/dL Total Bilirubin 3.5 H (0.2-1.3) mg/dL AST 112 H (14-36) U/L ALT 315 H (4-34) U/L Alkaline Phosphatase 312 H (38-126) U/L Total Protein 4.7 L (6.3-8.2) g/dL Albumin 2.1 L (3.5-5.0) g/dL Microbiology - Last 24 Hours (Table) 08/26/20 08:00 Gram Stain - Preliminary Sputum Sputum Culture - Preliminary Presumptive Staph aureus 08/24/20 05:32 Blood Culture Gram Stain - Final Blood Blood Culture - Final Staphylococcus aureus 08/26/20 10:15 Blood Culture Gram Stain - Preliminary Blood Blood Culture - Preliminary Presumptive Staph aureus 08/25/20 04:40 Blood Culture Gram Stain - Final Blood Blood Culture - Final Staphylococcus aureus 08/24/20 05:40 Blood Culture Gram Stain - Final Blood Blood Culture - Final Staphylococcus aureus Assessment and Plan Plan: Assessment: 1. Acute kidney injury secondary to ATN secondary to hypotension and cardiorenal syndrome. Baseline creatinine near 1 from earlier this month and peaked at 3.15 this admission. Started on hemodialysis August 24. Seems to have recovered renal function. 2. Hyperkalemia secondary to potassium supplementation, losartan, acute kidney injury as well as severe acidosis. Improved postdialysis. Now hypokalemic from diuresis, being replaced. 3. Metabolic acidosis secondary to acute kidney injury. Status post bicarb drip. Resolved. 4. Hypervolemic hyponatremia. Improved with ultrafiltration. 5. Wound dehiscence of the sternum. On antibiotics. CTS is following. Wound culture positive for staph aureus. Blood culture also positive for staph aureus. Status post sternal debridement yesterday. 6. Acute hypoxia respiratory failure. 7. Status post CABG in 08/10/2020. 8. Volume overload. Improving with diuresis. 9. Acute blood loss anemia status post 3 units of blood transfusion. No active bleeding. Also received a dose of DDAVP August 25. Maintained on Aranesp. Plan: Maintain IV Lasix. Hold off on hemodialysis as creatinine trending down and has good urine output. Continue to assess on daily basis. Continue to monitor renal function and urine output. Wean FiO2 and vasopressors. Maintain tube feeding.
[2020-08-28] MEDS: FERROUS SULFATE 325 MG TAB PO SCH (11:14)
[2020-08-28 11:37] LABS: Glucose,Whole Blood 134 mg/dL (75-99)
[2020-08-28] MEDS: ASCORBIC ACID 500 MG TAB PO SCH (12:30)
--- NOTE | 2020-08-28 13:10 | P.PN ---
Subjective Progress Note Date: 08/28/20 Principal diagnosis: Acute hypoxic and hypercapnic respiratory failure secondary to sepsis and septic shock. This is a 75-year-old female with history of coronary artery disease, had recent left main stenosis and she underwent two-vessel CABG with HOLLAND to LAD, and saphenous vein graft to obtuse marginal on 08/10/2020. Patient was seen by us postoperatively on consultation, and she was eventually discharged. Her other medical problems include history of hyponatremia, pulmonary fibrosis, hypertension, dyslipidemia, 35-[id number] smoking history, cervical stenosis and previous surgical disc disease, history of decompression and fusion. Patient was brought into the ER on 08/22/2020, and she was complaining of shortness of breath, patient was hypoxic and she was noted to have O2 saturation in the 80s. Chest x-ray showed evidence of pulmonary edema with bilateral pleural effusions, and patient was treated mostly with diuretics. However over the last 2 days, patient deteriorated, shortness of breath became worse, and today the patient was extremely dyspneic, chest x-ray was getting worse, patient was hypotensive, required fluid boluses, and I was notified about this patient early this morning, advised immediate transfer to the ICU, patient was placed on BiPAP, patient was also seen by nephrology, and her urine output is extremely poor, patient received fluid boluses for hypotension, in the meantime the patient was noted to have significant purulent drainage from her sternal incision site, and she clearly has wound dehiscence and sternal wound infection. Recommended broad-spectrum antibiotics on this patient, started on vancomycin and cefepime, patient was seen by infectious disease on consultation, she was also seen by nephrology planning hemodialysis, and vascular surgery saw the patient and placed a dialysis catheter. In the meantime patient was placed on BiPAP, she received fluids and pressors. I placed a central line in this patient an arterial line. Chest x-ray clearly shows evidence of bilateral interstitial edema. Patient was reevaluated today on 08/25/2020, remains in the ICU, she was on BiPAP earlier today, presently on high flow nasal cannula at 15 L/m. Yesterday she was on BiPAP 12/6 and 60% FiO2 this was overnight. Patient is off pressors, and this morning I stopped her sodium bicarb based on her ABG and based on her bicarb level as well as her electrolytes. Patient is getting hemodialysis again today, she had 2.2 L removed yesterday, and she would likely have the same this morning. Patient is awake, and bit dyspneic, anxious, agitated, chest x-ray continues to show evidence of pulmonary edema. Her sternal wound dehiscence seems to be significant, continues to have some purulent drainage, and that is being addressed by thoracic surgery on the case. Cultures from the sternal wound came back positive for gram-positive cocci in clusters, seen by infectious disease and she was transitioned to daptomycin instead of vancomycin. Hemoglobin is noted to be a bit low today, and I have ordered 1 unit of packed RBCs to be given. IV fluid is at 1 50 mL/h. Sodium bicarb is discontinued. Calcium gluconate was given for low calcium today. ABG showed a pO2 of 74 pCO2 of 40 pH of 7.47 and this was on a 15 L high flow nasal cannula. Hemoglobin is 6.5, and she will receive a unit of packed RBCs today. Electrolytes are normal BUN is 43 creatinine 2.79 Patient was reevaluated today on 08/26/2020, her clinical status deteriorated yesterday, patient was getting extremely agitated, restless, tachypneic tachycardic, she had a relatively normal ABG but based on her clinical picture, I recommended intubation and mechanical ventilation. She is now ventilated on assist control rate of 20 tablets volume is 450 FiO2 is 50% and PEEP is at 5. ABG showed a pO2 of 87 pCO2 of 39 pH of 7.43. She is on multiple drips inc luding IV fluid/0.9 normal saline at 50 mL per hour. Norepinephrine at 0.15 mcg/kg/m, propofol at 50 mcg/kg/m. Patient is being dialyzed and she is presently undergoing dialysis. Yesterday she had about 2 L off with dialysis. Patient is intermittently in A. fib with RVR. Presently in sinus rhythm. Her hemoglobin was noted to be low, received a total of 3 units of packed RBCs since yesterday. Hemoglobin today is 10.8. Patient was seen by infectious disease on consultation, and she was placed on cefepime and daptomycin replacing vancomycin, this is mostly for her presentation of sepsis and septic shock with sternal wound infection. The sternal wound is being addressed and cleaned by t horacic surgery on the case, patient may require surgical intervention may also require wound VAC. Blood cultures from 08/25 are positive for presumptive staph aureus. Wound cultures from the sternal wound, methicillin sensitive staph aureus. Urine cultures are negative so far. Yearly the patient started out of the sternal wound infection with MSSA, went on to develop sepsis, septic shock, and MSSA bacteremia. Hence we'll hold on any PICC line placement at this point, and we'll continue to use the central line Patient was reevaluated today on 08/27/2020, remains in the ICU, intubated and m echanically ventilated. Being treated for septic shock and bacteremia. Cultures have been positive for MSSA. Patient is on assist control rate of 20, volume 450 FiO2 50% PEEP of 5. ABG showed a pO2 of 71 pCO2 of 33 pH of 7.49. Patient is requiring norepinephrine at 0.12 mcg/kg/m, she is also on propofol at 50 mcg/kg/m, IV fluid at KVO. Net fluid balance is -1.4 L over the last 24 hours. Chest x-ray continues to show some evidence of interstitial edema and possibly a small left-sided pleural effusion. Patient has been receiving hemodialysis and ultrafiltration for the last 3 days, and over 6 L of fluid had been removed in the last 3 days. Today the patient has good urine output, renal functioning is improving, no dialysis is planned today, the patient was given Lasix by nephrology. Her urine output is about 50-60 mL per hour. And she was given 80 mg of Lasix daily as recommended by nephrology. Her sternal wound is being addressed by thoracic surgery today, and she may undergo surgery sometime later today. Labs today showed evidence of leukocytosis with WBC of 28.1 hemoglobin is 11.3. Liver enzymes remain elevated. And her BUN is down to 38 creatinine is 1. Reevaluated today on 08/28/2020, patient remains in the ICU, intubated and mechanically ventilated. Her assist-control rate is 20, volume is 450 FiO2 is 50% PEEP was at 5 and I increased it up to 8. ABG showed a pO2 of 57 pCO2 of 30 pH of 7.53. O2 saturation on the monitor is 96%. Patient remains on norepi nephrine at 0.07 mcg/kg/m, she is also on propofol at 65 mcg/kg/m. Patient is on enteral feeding. Remains on cefepime and daptomycin for her positive blood cultures/MSSA. Patient is also on Lasix at 80 mg IV push every 24 hours. Her urine output has been good. And her chest x-ray continues to show mild congestive heart failure changes. Patient has leukocytosis with WBC count 24.3, electrolytes are normal BUN is 46 creatinine 0.90. Liver enzymes are trending down slowly Objective - Vital Signs Vital signs: Vital Signs Temp 101.0 F H 08/28/20 12:00 Pulse 91 08/28/20 12:15 Resp 34 H 08/28/20 12:15 BP 87/49 08/28/20 12:15 Pulse Ox 97 08/28/20 12:15 Intake & Output 08/27/20 08/28/20 08/28/20 18:59 06:59 18:59 Intake Total 490.041 1164.947 589.309 Output Total 531 486 9064 Balance 99.041 118.947 -430.691 Weight 90.5 kg 90.5 kg Intake: IV 220 320 120 Cefepime 1 gm In Sodium 50 Chloride 0.9% 50 ml @ 12. 5 mls/hr IVPB Q24H [facility] Rx #:[id number] Sodium Chloride 0.9% 1, 220 270 120 000 ml @ 20 mls/hr IV . Q24H [facility] Rx#:[id number] Intake, IV Titration 674.041 550.947 294.309 Amount Norepinephrine 4 mg In 398.444 224.498 98.424 Sodium Chloride 0.9% 250 ml @ 0.05 MCG/KG/MIN 14. 973 mls/hr IV .[id number] [facility] Rx#:[id number] propofoL 500 mg In Empty 275.597 326.449 195.885 Bag 1 bag @ Titrate IV . Q0M [facility] Rx#:[id number] Tube Feeding 153 115 Other 60 60 Output: Urine 579 727 0041 Other: Voiding Method Indwelling Catheter Indwelling Catheter Indwelling Catheter ABP, PAP, CO, CI - Last Documented Arterial Blood Pressure 153/92 - Exam PHYSICAL EXAMINATION: Revealed a 75-year-old female, obese, intubated, ventil ated, sedated. On propofol. HEENT:, PERRLA, EOMI, nonicteric.Moist mucous membranes endotracheal tube and orogastric tubes are intact. CHEST EXAMINATION: Symmetrical chest expansion, crackles or rhonchi and wheezes noted bilaterally. Patient has sterile dressing over the sternal wound, supposedly is open and to be kept open as per thoracic surgery. HEART EXAMINATION Tachycardic, normal S1 and S2, 2/6 systolic murmur throughout the precordium. ABDOMEN: obese, Soft, nontender. Bowel sounds are heard. No organomegaly noted. EXTREMITIES:1+ peripheral pulses with evidence of mild peripheral edema and no calf tenderness noted. NEUROLOGIC EXAMINATION Sedated on propofol, could not assess. Psychiatric Sedated on propofol, could not assess. Skin: No rashes except for open sternal wound as noted above - Labs CBC & Chem 7: 08/28/20 03:50 08/28/20 12:04 Labs: Abnormal Lab Results - Last 24 Hours (Table) 08/27/20 08/27/20 08/27/20 Range/Units 12:08 17:39 23:08 WBC 26.4 H (3.8-10.6) k/uL RBC 3.50 L (3.80-5.40) m/uL Hgb 11.1 L (11.4-16.0) gm/dL Hct 32.4 L (34.0-46.0) % RDW 15.9 H (11.5-15.5) % Plt Count 95 L (150-450) k/uL Neutrophils # (Manual) 20.30 H (1.3-7.7) k/uL Monocytes # (Manual) 1.58 H (0-1.0) k/uL Eosinophils # (Manual) 0.79 H (0-0.7) k/uL Metamyelocytes # (Man) 0.53 H (0) k/uL Myelocytes # (Manual) 0.79 H (0) k/uL Promyelocytes # (Man) 0.26 H (0) k/uL Nucleated RBCs 2 H (0-0) /100 WBC ABG pH (7.35-7.45) ABG pCO2 (35-45) mmHg ABG pO2 (83-108) mmHg ABG Total CO2 (19-24) mmol/L ABG O2 Saturation (94-97) % Chloride (98-107) mmol/L BUN (7-17) mg/dL Glucose (74-99) mg/dL POC Glucose (mg/dL) 142 H 114 H (75-99) mg/dL Calcium (8.4-10.2) mg/dL Total Bilirubin (0.2-1.3) mg/dL AST (14-36) U/L ALT (4-34) U/L Alkaline Phosphatase (38-126) U/L Total Protein (6.3-8.2) g/dL Albumin (3.5-5.0) g/dL 08/28/20 08/28/20 08/28/20 Range/Units 03:50 03:50 04:45 WBC 24.3 H (3.8-10.6) k/uL RBC 3.45 L (3.80-5.40) m/uL Hgb 10.7 L (11.4-16.0) gm/dL Hct 31.6 L (34.0-46.0) % RDW 16.0 H (11.5-15.5) % Plt Count 78 L (150-450) k/uL Neutrophils # (Manual) 19.60 H (1.3-7.7) k/uL Monocytes # (Manual) (0-1.0) k/uL Eosinophils # (Manual) 0.97 H (0-0.7) k/uL Metamyelocytes # (Man) 0.73 H (0) k/uL Myelocytes # (Manual) 0.49 H (0) k/uL Promyelocytes # (Man) (0) k/uL Nucleated RBCs 2 H (0-0) /100 WBC ABG pH 7.53 H (7.35-7.45) ABG pCO2 30 L (35-45) mmHg ABG pO2 57 L* (83-108) mmHg ABG Total CO2 26 H (19-24) mmol/L ABG O2 Saturation 92.1 L (94-97) % Chloride 110 H (98-107) mmol/L BUN 46 H (7-17) mg/dL Glucose 111 H (74-99) mg/dL POC Glucose (mg/dL) (75-99) mg/dL Calcium 7.8 L (8.4-10.2) mg/dL Total Bilirubin 3.5 H (0.2-1.3) mg/dL AST 112 H (14-36) U/L ALT 315 H (4-34) U/L Alkaline Phosphatase 312 H (38-126) U/L Total Protein 4.7 L (6.3-8.2) g/dL Albumin 2.1 L (3.5-5.0) g/dL 08/28/20 Range/Units 11:35 WBC (3.8-10.6) k/uL RBC (3.80-5.40) m/uL Hgb (11.4-16.0) gm/dL Hct (34.0-46.0) % RDW (11.5-15.5) % Plt Count (150-450) k/uL Neutrophils # (Manual) (1.3-7.7) k/uL Monocytes # (Manual) (0-1.0) k/uL Eosinophils # (Manual) (0-0.7) k/uL Metamyelocytes # (Man) (0) k/uL Myelocytes # (Manual) (0) k/uL Promyelocytes # (Man) (0) k/uL Nucleated RBCs (0-0) /100 WBC ABG pH (7.35-7.45) ABG pCO2 (35-45) mmHg ABG pO2 (83-108) mmHg ABG Total CO2 (19-24) mmol/L ABG O2 Saturation (94-97) % Chloride (98-107) mmol/L BUN (7-17) mg/dL Glucose (74-99) mg/dL POC Glucose (mg/dL) 134 H (75-99) mg/dL Calcium (8.4-10.2) mg/dL Total Bilirubin (0.2-1.3) mg/dL AST (14-36) U/L ALT (4-34) U/L Alkaline Phosphatase (38-126) U/L Total Protein (6.3-8.2) g/dL Albumin (3.5-5.0) g/dL Microbiology - Last 24 Hours (Table) 08/24/20 05:45 Anaerobic Culture - Final Chest 08/26/20 08:00 Gram Stain - Preliminary Sputum Sputum Culture - Preliminary Presumptive Staph aureus 08/24/20 05:32 Blood Culture Gram Stain - Final Blood Blood Culture - Final Staphylococcus aureus 08/26/20 10:15 Blood Culture Gram Stain - Preliminary Blood Blood Culture - Preliminary Presumptive Staph aureus 08/25/20 04:40 Blood Culture Gram Stain - Final Blood Blood Culture - Final Staphylococcus aureus 08/24/20 05:40 Blood Culture Gram Stain - Final Blood Blood Culture - Final Staphylococcus aureus Assessment and Plan Assessment: Impression: Acute hypoxic and hypercapnic respiratory failure, requiring intubation and mechanical ventilation on 08/25/2020. Sepsis secondary from sternal wound infection infection and separation.. Septic shock, primary source is sternal wound infection. This is secondary to MSSA. leukocytosis secondary to above. Acute kidney injury presently on hemodialysis. Acute metabolic acidosis secondary to acute kidney injury and sepsis, resolved Acute transaminitis secondary to hypoperfusion. Acute diastolic congestive heart failure with bilateral pleural effusions History of hypertension History of cervical stenosis Previous tobacco dependence. History of mild interstitial lung disease/pulmonary fibrosis Status post sternal exploration with sternal debridement on 06/26/[address] Olivera. Sternum remains open at this point. Recommendation: Continue ventilatory support. At this point the patient is not ready for any weaning trials, she may have to go back to surgery to close her sternum. Continue hemodynamic support. Continue norepinephrine. Titrate accordingly. Continue nutritional support. Enteral feeding. Continue GI and DVT prophylaxis. Continue to monitor daily labs and renal profile. Continue to hold dialysis for now since the patient is making good urine. Continue sedation while on mechanical ventilation. No plans for any weaning today. Continue antibiotics for sepsis and septic shock as well as sternal wound infection. Remains critically ill, prognosis remains guarded. We'll continue to follow. Critical care time is over 30 minutes Time with Patient: Greater than 30
[2020-08-28] MEDS ORDERED: POTASSIUM BICARBONATE/CIT AC 20 MEQ TABLET.EFF NG-TUBE SCH (14:00)
--- NOTE | 2020-08-28 15:03 | P.PN ---
Subjective Progress Note Date: 08/28/20 Principal diagnosis: Septic shock from infected sternal wound with dehiscence This is a 75-year-old female patient of Dr. Rich Avila, Dr. Sloan and Dr. Guadalupe. She has a past medical history significant for hypertension, hyperlipidemia, pulmonary fibrosis, asthma, obesity, remote history of tobacco dependence with smoking 32 years ago, osteoarthritis, cervical stenosis post anterior cervical decompression, discectomy and fusion, TIA as a child at age 11 and family history of premature coronary artery disease with her father being diagnosed in his early 50s. Recently, the patient has been experiencing episodes of shortness of breath over the past 6 months with just minimal activity. She also complained of some lower extremity swelling which did resolve with some diuresis. she underwent a stress test which showed anterior wall ischemia with small reversible defect. a 2-D echocardiogram which showed mild aortic valve insufficiency, mild mitral valve regurgitation, mild tricuspid valve regurgitation and left ventricular function to be normal with an ejection fraction of 55%. Subsequently she underwent an elective heart catheterization on 07/27/2020 which demonstrated a left main stenosis with QING with a calculation of 2.6 mm, a 40% stenosis to her mid left anterior descending coronary artery and a 30% stenosis to her right coronary artery. Due to the patient's symptoms and findings on her heart catheterization of left main stenosis a consult was placed to Dr. Sethi from cardiothoracic surgery for further evaluation and treatment recommendations. During her preoperative workup her serum sodium level was found to be 120 and was admitted prior to surgery for treatment of hyponatremia. Last admission On 08/06/2020-08/19/20 the patient was admitted to the hospital for treatment of her hyponatremia, and once her hyponatremia was resolved on 08/10/2020, asubsequently taken to the operating room where Dr. Sethi performed a double vessel coronary artery bypass grafting surgery using the left internal mammary artery to left anterior setting coronary artery, a reverse greater saphenous vein graft from the aorta to the first obtuse marginal coronary artery, endoscopic harvesting of the left greater saphenous vein from the groin Upon completion of the surgery the patient was transferred to the intensive care unit where she was recovered, monitored hemodynamically and where she progressed cardiac rehabilitation phase Her oxygen was titrated down, she continued to work with physical/occupational therapy and cardiac rehabilitation, she was tolerating an oral diet, her pain was well controlled without narcotics and she was ready to be discharged home with [facility] care on postoperative day #9. Did not require home O2 on last admission however she required new medication changes including diuretics during that last admission. Patient comes in in worsening shortness of breath anasarca, no chest pain, has BARKER, edma without leg pain new medications from last visit was compliant, requiring lipitor 75bid, tolvaptan. meotprolol 75 bid plavix, lasix 40 mg daily losartain 25 asa 325, ferrous sulfate and fluconazole. patient comes in now for CHF, anarsarc ely pleural effusion, consult with dr Sethi. and cardiology, if okay will be cardiothoracic surgeon can also perform the thoracentesis, however with hypoxemia, also have requested Dr. Gamboa's services. Patient has a hemoglobin of 7.0 on and 3, platelet count of 305, hemoglobin right to admission was 8.0 denies any Hemoccult stools, creatinine was 1.60 from a previous of 0.9 blood pressure is in the low 90s systolic, pulse ox, 90 on 4 L nasal cannula, patient was not discharged with home O2 during her last admission 08/24: A-Team was called for mental status changes. Patient was found to have a blood pressure 99/65, heart rate of 85 and pulse ox of 96% on a nonrebreather with respiratory rate of 32. Patient was transferred to the ICU. She was started on vancomycin and cefepime. Patient has been seen by cardiology with plan to continue vasopressor support, patient may need pleurocentesis. Stat echocardiogram was done to rule out pericardial effusion or tamponade. Patient has been seen by nephrology for acute kidney injury secondary to ATN secondary to hypotension and cardiorenal syndrome. Patient is currently on bicarb drip, status post Lasix 80 mg IV once. Renal replacement therapy to be initiated immediately. Vascular consult in place for a dialysis catheter placement and start hemodialysis today with second treatment tomorrow. Sternal wound was producing thick yellowish brown fluid, was opened approximately 2 cm and deep culture was taken, packed and covered with 4 x 4 dressing. She is requiring vasopressors. She is hypothermic and warming blanket is in place.Patient had minimal output yesterday and none today. She is status post 2.5 L of fluids. 08/25 patient was examined in the ICU. She was able to maintain oxygenation on BiPAP overnight switch to high flow 15 m this morning. Patient did have episodes of agitation last night and was started on Seroquel. She did receive a dose of Seroquel prior to admission and was found to be resting comfortably. Patient is off pressors and bicarbonate drip and metabolic acidosis seemed to have cleared off. On evaluation of patient's lab, WBC is 14.3, hemoglobin 6.5 platelet 208 ABG this morning has a pH of 7.47 CO2 74. Bicarb 29. Sodium has improved to 126 chloride 96 BUN 43 creatinine 2.79 lactic acid has improved to 2.9 calcium 7 liver enzymes elevated AST at 2874 ALT 1469 alkaline phosphatase 192 CRP 356 BNP 13,000 UA does suggest some infection with WBC of 88 hyaline casts 33 protein 2+ urine blood trace nitrite negative leukocyte Estrace negative. Wound cultures positive for presumptive staph aureus. Patient's blood culture from yesterday are positive with presumptive staph aureus. Repeat blood cultures ordered. Patient received 1 unit of PRBCs for low hemoglobin. Urine output has improved to 20-40 mL's per hour. Patient did receive a dose of DDAVP for hyponatremia. Normal saline is running at 50 mL per hour. Did receive hemodialysis today with 2 L ultrafiltration. Patient was also noted to be in A. fib with RVR intermittently and her dose of Lopressor was increased to 25 mg every 8 hours. Continue daptomycin and cefepime for antibiotic coverage. Monitor patient's for QTC prolongation well on Seroquel. Patient has significa nt dehiscence of wound and may need I&D 08/27 she remains in the ICU, intubated and mechanically ventilated. Patient is going to the OR for debridement today. Patient remains intubated on 50% FiO2 and PEEP of 5, assist control rate of 20volume 450. Continues to require Levophed at 11mcg/ hr . Blood clots and culture positive for MSSA. Urine output is 50-60 mL per hour. Patient continues to be on sedation from propofol at 50 max per KG permanent. IV fluids at KVO. Patient continues to have good urine output after a dose of 80 mg of IV Lasix today. Vision tolerated 2.5 L ultrafiltration yesterday and is started on hemodialysis on August 24. No holiday sedation today. Plan to continue Lasix 80 IV once daily and holding hemodialysis. Anticoagulation held for debridement. 08/28 patient remains in the ICU. Did have sternal Exploration and debridement yesterday remains sedated on propofol. Patient continues to have high temp of 101.6, to 233 tachycardic 111 blood pressure 106/51 oxygen saturation 95% on 50% FiO2. Labs suggest a leukocytosis of 24.3 hemoglobin stable at 10.7 platelet count has dipped dropped to 78, he really suggest a pH of 7.53 pCO2 30 PaO2 57, chloride of 110 potassium 3.5 and anion gap of 6 BUN 46 creatinine 0.9 calcium 7.8 ALT 3:15 alkaline phosphatase 312 AST 112 blood cultures from 08/26 positive for staph aureus. Urine output 1.2 L in 24 hours Repeat blood cultures sent today. Patient continues to be normal sinus rhythm not currently on any anticoagulation at the possibility of going for another debridement. Patient's continues to be on levo fed and still stays intubated. Continue IV Lasix. Patient initiated on IV Lasix review of system could not be obtained due to decreased awakeness Objective - Vital Signs Vital signs: Vital Signs Temp 101.6 F H 08/28/20 08:00 Pulse 111 H 08/28/20 10:15 Resp 33 H 08/28/20 10:15 BP 106/51 08/28/20 10:15 Pulse Ox 95 08/28/20 10:15 Intake & Output 08/27/20 08/28/20 08/28/20 18:59 06:59 18:59 Intake Total 754.909 7417.947 363.667 Output Total 795 965 570 Balance 99.041 118.947 -206.333 Weight 90.5 kg 90.5 kg Intake: IV 220 320 80 Cefepime 1 gm In Sodium 50 Chloride 0.9% 50 ml @ 12. 5 mls/hr IVPB Q24H [facility] Rx #:[id number] Sodium Chloride 0.9% 1, 220 270 80 000 ml @ 20 mls/hr IV . Q24H [facility] Rx#:[id number] Intake, IV Titration 674.041 550.947 184.667 Amount Norepinephrine 4 mg In 398.444 224.498 38.782 Sodium Chloride 0.9% 250 ml @ 0.05 MCG/KG/MIN 14. 973 mls/hr IV .[id number] [facility] Rx#:[id number] propofoL 500 mg In Empty 275.597 326.449 145.885 Bag 1 bag @ Titrate IV . Q0M [facility] Rx#:[id number] Tube Feeding 153 69 Other 60 30 Output: Urine 795 965 570 Other: Voiding Method Indwelling Catheter Indwelling Catheter Indwelling Catheter ABP, PAP, CO, CI - Last Documented Arterial Blood Pressure 153/92 - Exam PHYSICAL EXAMINATION Gen: This is a 75-year-old female. Intubated She is in the ICU. Tonya blanket in place for hypothermia. HEENT: Head is atraumatic, normocephalic. Pupils equal, round. Sclerae is anicteric. Patient is intubated, central incision dressed NECK: Supple. No JVD. No lymphadenopathy. No thyromegaly. LUNGS: Diminished. No wheezes or rhonchi. No intercostal retractions. HEART: Regular rate and rhythm. 2/6 systolic murmur. Dressing in place to sternal wound with reported purulent drainage. ABDOMEN: Soft. Bowel sounds are present. No masses. No tenderness. EXTREMITIES: 2+ bilat pitting edema. No calf tenderness. NEUROLOGICAL: Patient is sleeping - Labs CBC & Chem 7: 08/28/20 03:50 08/28/20 12:04 Labs: Abnormal Lab Results - Last 24 Hours (Table) 08/27/20 08/27/20 08/27/20 Range/Units 10:40 12:06 12:08 WBC 26.4 H (3.8-10.6) k/uL RBC 3.50 L (3.80-5.40) m/uL Hgb 11.1 L (11.4-16.0) gm/dL Hct 32.4 L (34.0-46.0) % RDW 15.9 H (11.5-15.5) % Plt Count 95 L (150-450) k/uL Neutrophils # (Manual) 20.30 H (1.3-7.7) k/uL Monocytes # (Manual) 1.58 H (0-1.0) k/uL Eosinophils # (Manual) 0.79 H (0-0.7) k/uL Metamyelocytes # (Man) 0.53 H (0) k/uL Myelocytes # (Manual) 0.79 H (0) k/uL Promyelocytes # (Man) 0.26 H (0) k/uL Nucleated RBCs 2 H (0-0) /100 WBC ABG pH (7.35-7.45) ABG pCO2 (35-45) mmHg ABG pO2 (83-108) mmHg ABG Total CO2 (19-24) mmol/L ABG O2 Saturation (94-97) % Potassium 3.4 L (3.5-5.1) mmol/L Chloride (98-107) mmol/L BUN (7-17) mg/dL Glucose (74-99) mg/dL POC Glucose (mg/dL) 111 H (75-99) mg/dL Calcium (8.4-10.2) mg/dL Total Bilirubin (0.2-1.3) mg/dL AST (14-36) U/L ALT (4-34) U/L Alkaline Phosphatase (38-126) U/L Total Protein (6.3-8.2) g/dL Albumin (3.5-5.0) g/dL 08/27/20 08/27/20 08/28/20 Range/Units 17:39 23:08 03:50 WBC 24.3 H (3.8-10.6) k/uL RBC 3.45 L (3.80-5.40) m/uL Hgb 10.7 L (11.4-16.0) gm/dL Hct 31.6 L (34.0-46.0) % RDW 16.0 H (11.5-15.5) % Plt Count 78 L (150-450) k/uL Neutrophils # (Manual) 19.60 H (1.3-7.7) k/uL Monocytes # (Manual) (0-1.0) k/uL Eosinophils # (Manual) 0.97 H (0-0.7) k/uL Metamyelocytes # (Man) 0.73 H (0) k/uL Myelocytes # (Manual) 0.49 H (0) k/uL Promyelocytes # (Man) (0) k/uL Nucleated RBCs 2 H (0-0) /100 WBC ABG pH (7.35-7.45) ABG pCO2 (35-45) mmHg ABG pO2 (83-108) mmHg ABG Total CO2 (19-24) mmol/L ABG O2 Saturation (94-97) % Potassium (3.5-5.1) mmol/L Chloride (98-107) mmol/L BUN (7-17) mg/dL Glucose (74-99) mg/dL POC Glucose (mg/dL) 142 H 114 H (75-99) mg/dL Calcium (8.4-10.2) mg/dL Total Bilirubin (0.2-1.3) mg/dL AST (14-36) U/L ALT (4-34) U/L Alkaline Phosphatase (38-126) U/L Total Protein (6.3-8.2) g/dL Albumin (3.5-5.0) g/dL 08/28/20 08/28/20 Range/Units 03:50 04:45 WBC (3.8-10.6) k/uL RBC (3.80-5.40) m/uL Hgb (11.4-16.0) gm/dL Hct (34.0-46.0) % RDW (11.5-15.5) % Plt Count (150-450) k/uL Neutrophils # (Manual) (1.3-7.7) k/uL Monocytes # (Manual) (0-1.0) k/uL Eosinophils # (Manual) (0-0.7) k/uL Metamyelocytes # (Man) (0) k/uL Myelocytes # (Manual) (0) k/uL Promyelocytes # (Man) (0) k/uL Nucleated RBCs (0-0) /100 WBC ABG pH 7.53 H (7.35-7.45) ABG pCO2 30 L (35-45) mmHg ABG pO2 57 L* (83-108) mmHg ABG Total CO2 26 H (19-24) mmol/L ABG O2 Saturation 92.1 L (94-97) % Potassium (3.5-5.1) mmol/L Chloride 110 H (98-107) mmol/L BUN 46 H (7-17) mg/dL Glucose 111 H (74-99) mg/dL POC Glucose (mg/dL) (75-99) mg/dL Calcium 7.8 L (8.4-10.2) mg/dL Total Bilirubin 3.5 H (0.2-1.3) mg/dL AST 112 H (14-36) U/L ALT 315 H (4-34) U/L Alkaline Phosphatase 312 H (38-126) U/L Total Protein 4.7 L (6.3-8.2) g/dL Albumin 2.1 L (3.5-5.0) g/dL Microbiology - Last 24 Hours (Table) 08/26/20 08:00 Gram Stain - Preliminary Sputum Sputum Culture - Preliminary Presumptive Staph aureus 08/24/20 05:32 Blood Culture Gram Stain - Final Blood Blood Culture - Final Staphylococcus aureus 08/26/20 10:15 Blood Culture Gram Stain - Preliminary Blood Blood Culture - Preliminary Presumptive Staph aureus 08/25/20 04:40 Blood Culture Gram Stain - Final Blood Blood Culture - Final Staphylococcus aureus 08/24/20 05:40 Blood Culture Gram Stain - Final Blood Blood Culture - Final Staphylococcus aureus Assessment and Plan Plan: 1. Sepsis with septic shock with multiorgan failure with metabolic encephalopathy, acute kidney injury, acute heart failure, acute respiratory fa ilure. Status post sternal exploration and debridement on 08/27 Patient on daptomycin and cefepime. Off vasopressors. Blood culture and wound culture positive for MSSA. 2. Acute hypoxemic respiratory failure with pulmonary edema and pleural effusions secondary to CHF, diastolic, EF 55-60% on current TTE, Patient has underlying pulmonary hypertension as well, consult with cardiology, see above. O2 supplementation, patient's currently chest pain-free, negative for covid on lasix 80 m giv daily 3. Acute kidney injury secondary to ATN secondary to hypotension and cardiorenal syndrome. on hemodialysis , no treatment todya 4. Hyperkalemia secondary to potassium supplementation, losartan and acute kidney injury as well as severe acidosis. Consult with nephrology appreciated. Continue medical management. 5. Metabolic acidosis secondary to acute kidney injury. Resolved 6. Metabolic encephalopathy secondary to sepsis, acute kidney injury, acute heart failure, acute respiratory failure, metabolic acidosis and hyperkalemia. 7. Acute diastolic heart failure, EF 55%, mild AI and mild MR and mild TR, also complicated by severe protein calorie malnutrition. 8. Septic shock with sternal wound infection and dehiscence and possible UTI. s/p sternal exploration and sternal debridement on Infectious disease consult. Patient is currently on daptomycin and cefepime. Wound culture positive for staph and blood culture 9. Anemia of chronic blood loss from recent surgery. Continue monitor closely and transfuse if hemoglobin 7 or below. On iron supplementations status post 1 unit PRBC on 06/24 10. Hypervolemic Hyponatremia. Status post DDAVP and dialysis s/p 2.5 L ultrafiltration on 08/26 11. CAD, with prior CABG performed on 08/10/2020, two-vessel, involving HOLLAND to LAD, and reverse greater saphenous vein to obtuse marginal coronary artery. held aspirin 325 mg daily, continue Plavix 75 mg daily, Toprol all 75 mg twice a day, 12. Moderate protein calorie malnutrition, with anasarca and hypotension. 13. History of pulmonary fibrosis. Continue duo nebs and albuterol 14. Asthma, mild intermittent. Continue ipratropium albuterol nebulizers 15. Hyperlipidemia. Continue statin daily 16. Hypertension. Currently hypotensive 17. GI prophylaxis. Pantoprazole 18. DVT prophylaxis: SCDs 19. Blood sugar management in a nondiabetic. insulin scale ACHS. 20. Dry mouth patient needs an oral lubricant, status post fluconazole Prognosis guarded DISCHARGE PLAN TBD.
--- NOTE | 2020-08-28 16:14 | PN ---
PROGRESS NOTE DATE OF SERVICE: 08/28/2020 REASON FOR FOLLOWUP: Sternal wound infection with MSSA bacteremia. INTERVAL HISTORY: The patient did spike a fever of 101 degrees Fahrenheit this morning and afternoon. The patient is currently on low-dose pressor support in the form of Levophed. The patient FiO2 is currently at 50%. No significant purulent secretions in the ET have been reported or any diarrhea by the nursing staff. PHYSICAL EXAMINATION: Blood pressure 104/58 with a pulse of 86, temperature 101. She is 98% on 50% FiO2. General description is an elderly female lying in bed in no distress. RESPIRATORY SYSTEM: Unlabored breathing, decreased breath sounds at the bases. No wheeze. HEART: S1, S2. Regular rate and rhythm. ABDOMEN: Soft, no tenderness. LABS: Hemoglobin is 10.7, white count 24.3 with a BUN of 46, creatinine 0.90. DIAGNOSTIC IMPRESSION AND PLAN: Patient with MSSA bacteremia source is sternal wound infection, status post debridement with new fever slightly concerning. Antibiotic in view of the improvement in her kidney function, antibiotic will be adjusted to cefazolin and clindamycin. Sputum and blood culture have been requested and will monitor and antibiotic adjusted further if needed. MMODL / IJN: [id number] /
[2020-08-28] MEDS: CLINDAMYCIN 900 MG in DEXTROSE 5% IN WATER 50 ML IVPB SCH ×2 (17:28)
[2020-08-28 17:52] LABS: Glucose,Whole Blood 119 mg/dL (75-99)
[2020-08-28] MEDS: SENNOSIDES-DOCUSATE SODIUM 1 EACH TAB PO SCH (21:21)
[2020-08-28 23:57] LABS: Glucose,Whole Blood 121 mg/dL (75-99)
[2020-08-29] MEDS: CLINDAMYCIN 900 MG in DEXTROSE 5% IN WATER 50 ML IVPB SCH ×6 (00:04→16:20)
[2020-08-29] MEDS: METOPROLOL TARTRATE 25 MG TAB PO SCH ×3 (00:04→16:12)
[2020-08-29] MEDS: HEPARIN SODIUM,PORCINE 5,000 UNIT/ML 1 ML VIAL SQ SCH ×3 (00:05→16:11)
[2020-08-29] MEDS: SODIUM CHLORIDE 0.9% 1,000 ML IV SCH (01:30)
[2020-08-29 05:42] LABS: Anisocytosis Slight; Basophils # (A) 0.3 k/uL (0-0.2); Basophils % (A) 1 %; Eosinophils # (A) 1.4 k/uL (0-0.7); Eosinophils % (A) 6 %; HCT 31.6 % (34.0-46.0); HGB 10.6 gm/dL (11.4-16.0); Hypochromasia Moderate; Lymphocytes # (A) 2.9 k/uL (1.0-4.8); Lymphocytes % (A) 12 %; MCH 30.5 pg (25.0-35.0); MCHC 33.5 g/dL (31.0-37.0); MCV 91.2 fL (80.0-100.0); Monocytes # (A) 0.7 k/uL (0-1.0); Monocytes % (A) 3 %; Neutrophils # (A) 18.5 k/uL (1.3-7.7); Neutrophils % (A) 77 %; Poikilocytosis Moderate; RBC 3.47 m/uL (3.80-5.40); RDW 16.3 % (11.5-15.5); WBC 24.2 k/uL (3.8-10.6)
[2020-08-29 05:43] LABS: Platelet Count 80 k/uL (150-450)
[2020-08-29 05:47] LABS: ABG Base Excess 3.6 mmol/L; ABG HCO3 27 mmol/L (21-25); ABG Oxygen Saturation 90.8 % (94-97); ABG PCO2 35 mmHg (35-45); ABG TCO2 28 mmol/L (19-24); Allen Test Performed? Yes
[2020-08-29 05:50] LABS: ABG PO2 56 mmHg (83-108)
[2020-08-29 05:57] LABS: ALT 163 U/L (4-34); AST 69 U/L (14-36); African American GFR (CKD) >90 (>60 ml/min/1.73 sqM); Albumin 2.2 g/dL (3.5-5.0); Alkaline Phosphatase 315 U/L (38-126); Anion Gap 10 mmol/L; Blood Urea Nitrogen 41 mg/dL (7-17); Calcium 7.7 mg/dL (8.4-10.2); Carbon Dioxide 24 mmol/L (22-30); Chloride 109 mmol/L (98-107); Glucose 117 mg/dL (74-99); Non-African American GFR(CKD) 82 (>60 ml/min/1.73 sqM); Potassium 3.5 mmol/L (3.5-5.1); Sodium 143 mmol/L (137-145); Total Bilirubin 3.4 mg/dL (0.2-1.3); Total Protein 5.2 g/dL (6.3-8.2)
[2020-08-29 06:05] LABS: Glucose,Whole Blood 116 mg/dL (75-99)
[2020-08-29] MEDS: NOREPINEPHRINE 4 MG in SODIUM CHLORIDE 0.9% 250 ML IV SCH (06:11)
[2020-08-29] MEDS: INSULIN ASPART (NovoLOG) 100 UNIT/ML VIAL SQ SCH ×3 (06:13→17:21)
--- NOTE | 2020-08-29 06:30 | P.PN ---
Subjective Progress Note Date: 08/29/20 Principal diagnosis: Hypotension This is a 75-year-old female patient who underwent coronary artery bypass grafting times to 2 weeks ago with also history of pulmonary fibrosis as well as multiple comorbid conditions was admitted to the hospital initiated with increasing shortness of breath without any symptoms of chest pain or chest discomfort. Subsequently the patient was admitted to the [address] [place] [address] unit and subsequently she was transferred to the intensive. For increasing shortness of breath and also change in mental status. She was diagnosed with sepsis secondary to infection in the sternum. Subsequently the patient went into the OR the day before yesterday for wound debridement. The patient was seen today 08/29/2020. She still requires small dose of norepinephrine. Otherwise she is maintaining normal sinus mechanism. We are holding any oral anticoagulation at this point because the patient possibly is going to the OR again. She remains intubated and mechanical ventilation. She is on dual antiplatelet therapy but she is not on statin because of elevated liver function tests. She still erythematous but she looks slightly better than yesterday. She continues to be on Lasix IV and nephrology continues to be on the case. The hemoglobin is stable. The creatinine is better Objective - Vital Signs Vital signs: Vital Signs Temp 99.2 F 08/29/20 04:00 Pulse 84 08/29/20 05:15 Resp 29 H 08/29/20 05:15 BP 118/55 08/29/20 05:15 Pulse Ox 97 08/29/20 05:15 Intake & Output 08/28/20 08/28/20 08/29/20 06:59 18:59 06:59 Intake Total 2875.852 0537.073 1336.494 Output Total 965 1715 975 Balance 118.947 -484.927 361.494 Weight 90.5 kg 90.5 kg 91 kg Intake: IV 320 340 370 Cefepime 1 gm In Sodium 50 Chloride 0.9% 50 ml @ 12. 5 mls/hr IVPB Q24H [facility] Rx #:[id number] Clindamycin 900 mg In 50 50 Dextrose 5% in Water 50 ml @ 50 mls/hr IVPB Q8HR [facility] Rx#:[id number] Sodium Chloride 0.9% 1, 270 240 220 000 ml @ 20 mls/hr IV . Q24H [facility] Rx#:[id number] ceFAZolin 2 gm In Sodium 50 100 Chloride 0.9% 50 ml @ 100 mls/hr IVPB Q8HR [facility] Rx# :[id number] Intake, IV Titration 550.947 547.073 563.494 Amount Norepinephrine 4 mg In 224.498 201.141 173.537 Sodium Chloride 0.9% 250 ml @ 0.05 MCG/KG/MIN 14. 973 mls/hr IV .[id number] [facility] Rx#:[id number] propofoL 500 mg In Empty 326.449 345.932 389.957 Bag 1 bag @ Titrate IV . Q0M [facility] Rx#:[id number] Tube Feeding 153 253 253 Other 60 90 150 Output: Urine 965 1715 975 Other: Voiding Method Indwelling Catheter Indwelling Catheter Indwelling Catheter ABP, PAP, CO, CI - Last Documented Arterial Blood Pressure 153/92 - Constitutional General appearance: Present: no acute distress - Respiratory Respiratory: bilateral: diminished - Cardiovascular Rhythm: regular Heart sounds: normal: S1, S2 - Labs CBC & Chem 7: 08/29/20 05:20 08/29/20 05:20 Labs: Abnormal Lab Results - Last 24 Hours (Table) 08/28/20 08/28/20 08/28/20 Range/Units 11:35 17:51 23:54 WBC (3.8-10.6) k/uL RBC (3.80-5.40) m/uL Hgb (11.4-16.0) gm/dL Hct (34.0-46.0) % RDW (11.5-15.5) % Plt Count (150-450) k/uL Neutrophils # (1.3-7.7) k/uL Eosinophils # (0-0.7) k/uL Basophils # (0-0.2) k/uL ABG pH (7.35-7.45) ABG pO2 (83-108) mmHg ABG HCO3 (21-25) mmol/L ABG Total CO2 (19-24) mmol/L ABG O2 Saturation (94-97) % Chloride (98-107) mmol/L BUN (7-17) mg/dL Glucose (74-99) mg/dL POC Glucose (mg/dL) 134 H 119 H 121 H (75-99) mg/dL Calcium (8.4-10.2) mg/dL Total Bilirubin (0.2-1.3) mg/dL AST (14-36) U/L ALT (4-34) U/L Alkaline Phosphatase (38-126) U/L Total Protein (6.3-8.2) g/dL Albumin (3.5-5.0) g/dL 08/29/20 08/29/20 08/29/20 Range/Units 05:20 05:20 05:45 WBC 24.2 H (3.8-10.6) k/uL RBC 3.47 L (3.80-5.40) m/uL Hgb 10.6 L (11.4-16.0) gm/dL Hct 31.6 L (34.0-46.0) % RDW 16.3 H (11.5-15.5) % Plt Count 80 L (150-450) k/uL Neutrophils # 18.5 H (1.3-7.7) k/uL Eosinophils # 1.4 H (0-0.7) k/uL Basophils # 0.3 H (0-0.2) k/uL ABG pH 7.50 H (7.35-7.45) ABG pO2 56 L* (83-108) mmHg ABG HCO3 27 H (21-25) mmol/L ABG Total CO2 28 H (19-24) mmol/L ABG O2 Saturation 90.8 L (94-97) % Chloride 109 H (98-107) mmol/L BUN 41 H (7-17) mg/dL Glucose 117 H (74-99) mg/dL POC Glucose (mg/dL) (75-99) mg/dL Calcium 7.7 L (8.4-10.2) mg/dL Total Bilirubin 3.4 H (0.2-1.3) mg/dL AST 69 H (14-36) U/L ALT 163 H (4-34) U/L Alkaline Phosphatase 315 H (38-126) U/L Total Protein 5.2 L (6.3-8.2) g/dL Albumin 2.2 L (3.5-5.0) g/dL 08/29/20 Range/Units 06:04 WBC (3.8-10.6) k/uL RBC (3.80-5.40) m/uL Hgb (11.4-16.0) gm/dL Hct (34.0-46.0) % RDW (11.5-15.5) % Plt Count (150-450) k/uL Neutrophils # (1.3-7.7) k/uL Eosinophils # (0-0.7) k/uL Basophils # (0-0.2) k/uL ABG pH (7.35-7.45) ABG pO2 (83-108) mmHg ABG HCO3 (21-25) mmol/L ABG Total CO2 (19-24) mmol/L ABG O2 Saturation (94-97) % Chloride (98-107) mmol/L BUN (7-17) mg/dL Glucose (74-99) mg/dL POC Glucose (mg/dL) 116 H (75-99) mg/dL Calcium (8.4-10.2) mg/dL Total Bilirubin (0.2-1.3) mg/dL AST (14-36) U/L ALT (4-34) U/L Alkaline Phosphatase (38-126) U/L Total Protein (6.3-8.2) g/dL Albumin (3.5-5.0) g/dL Microbiology - Last 24 Hours (Table) 08/26/20 10:15 Blood Culture Gram Stain - Final Blood Blood Culture - Final Staphylococcus aureus 08/28/20 11:00 Gram Stain - Preliminary Sputum Sputum Culture - Preliminary 08/24/20 05:45 Anaerobic Culture - Final Chest 08/26/20 08:00 Gram Stain - Preliminary Sputum Sputum Culture - Preliminary Presumptive Staph aureus 08/24/20 05:32 Blood Culture Gram Stain - Final Blood Blood Culture - Final Staphylococcus aureus Assessment and Plan Assessment: Assessment #1 change in mental status #2 acute respiratory distress and status post intubation yesterday #3 hypotension requiring norepinephrine #3 atrial flutter was controlled heart rate #4 sepsis and status post wound debridement #5 multiple comorbid conditions Plan #1 continue the current dose of metoprolol #2 continue monitor the kidney function and electrolytes #3 try to wean the patient from norepinephrine #4 hold any statin at this point
--- NOTE | 2020-08-29 06:38 | XR ---
EXAMINATION TYPE: XR chest 1V portable DATE OF EXAM: 08/29/2020 COMPARISON: 08/28/2020 HISTORY: SOB, Follow Up FINDINGS: Indwelling tubes and catheters are unchanged. Diffuse infiltrates persist throughout both lung lópez without significant change. Stable appearance of the cardio-mediastinal structures at this time. Pleural effusion unchanged. IMPRESSION: 1. Stable portable chest. Clinical correlation and follow up until resolution is recommended.
[2020-08-29] MEDS: fentaNYL (PF) 50 MCG/ML 2 ML AMP IVP PRN (08:02)
[2020-08-29] MEDS: CLOPIDOGREL 75 MG TAB PO SCH (08:15)
[2020-08-29] MEDS: PANTOPRAZOLE 40 MG/10 ML VIAL IVP SCH (08:15)
[2020-08-29] MEDS: ASPIRIN 325 MG TAB PO SCH (08:15)
[2020-08-29] MEDS: FUROSEMIDE 10 MG/ML 10 ML VIAL IV SCH ×2 (08:16→20:47)
[2020-08-29] MEDS: CHLORHEXIDINE GLUCONATE 15 ML CUP MUCOUS MEM SCH ×2 (08:16→20:46)
[2020-08-29] MEDS: POTASSIUM BICARBONATE/CIT AC 20 MEQ TABLET.EFF NG-TUBE SCH ×2 (08:16→08:30)
[2020-08-29] MEDS: MIDODRINE 5 MG TAB PO SCH ×3 (08:16→21:42)
[2020-08-29] MEDS: DRY MOUTH SPRAY 44.3 SPRAY/44.3 ML SPRAY MUCOUS MEM SCH ×4 (08:35→21:42)
--- NOTE | 2020-08-29 08:50 | P.PN ---
Subjective Progress Note Date: 08/29/20 Principal diagnosis: Shortness of breath, acute diastolic heart failure, bilateral pleural effusion, lactic acidosis, hypercapnic respiratory failure requiring BiPAP followed by nm chanical ventilation, deep sternal wound infection with MSSA, acute kidney injury, acute hyperkalemia, hyponatremia, acute transaminitis, hypotension requiring vasopressors use, acute anemia. Previous medical history of coronary artery disease with left main stenosis status post 2 vessel CABG on 08/10/2020 with expected postoperative acute blood loss anemia, hypotension, and urinary retention as well as candidal stomatititus, hyponatremia, pulmonary fibrosis, asthma, hypertension, hyperlipidemia, previous tobacco dependence, obesity, osteoarthritis, cervical stenosis post anterior cervical disc decompression, discectomy and fusion, TIA as a child, family history of premature coronary artery disease. Paroxysmal Afib w/ RVR POD #2 sternal exploration with sternal debridement The patient was seen and examined at the bedside in the ICU. Remains sedated on propofol and mechanically ventilated. Appears comfortable at this time. T-max 101.6 in the last 24 hours, WBC 24.2, blood cultures positive for MSSA, sternal wound culture positive for MSSA. Sputum culture pending, presumptive staph 08/26, preliminary negative for organisms 08/28. Patient remains on IV cefepime and daptomycin per infectious disease. Currently in NSR with HR in the 80s. Blood pressure stable on IV Levophed, dose has been titrated down. Kidney function and liver function is slightly improved, BUN 41, creatinine 0.73, AST 69, ALT 163. Hemoglobin 10.6 this morning. Tube feeds continue. Dialysis on hold, started on IV lasix per nephrology. Sternal wound dressing changed with Dr. Olivera, wound bed appears slightly better with less drainage. Plan is for daily dressing changes by cardiothoracic surgery with eventual wound VAC placement. Family updated daily by phone. Objective - Vital Signs Vital signs: Vital Signs Temp 99.2 F 08/29/20 04:00 Pulse 78 08/29/20 07:00 Resp 24 08/29/20 07:00 BP 106/55 08/29/20 07:00 Pulse Ox 98 08/29/20 07:00 Intake & Output 08/28/20 08/29/20 08/29/20 18:59 06:59 18:59 Intake Total 5236.532 0960.494 43 Output Total 1715 1005 30 Balance -484.927 424.494 13 Weight 90.5 kg 91 kg Intake: IV 340 390 20 Clindamycin 900 mg In 50 50 Dextrose 5% in Water 50 ml @ 50 mls/hr IVPB Q8HR [facility] Rx#:[id number] Sodium Chloride 0.9% 1, 240 240 20 000 ml @ 20 mls/hr IV . Q24H [facility] Rx#:[id number] ceFAZolin 2 gm In Sodium 50 100 Chloride 0.9% 50 ml @ 100 mls/hr IVPB Q8HR [facility] Rx# :[id number] Intake, IV Titration 547.073 613.494 Amount Norepinephrine 4 mg In 201.141 173.537 Sodium Chloride 0.9% 250 ml @ 0.05 MCG/KG/MIN 14. 973 mls/hr IV .[id number] [facility] Rx#:[id number] propofoL 500 mg In Empty 345.932 439.957 Bag 1 bag @ Titrate IV . Q0M [facility] Rx#:[id number] Tube Feeding 253 276 23 Other 90 150 Output: Urine 1715 1005 30 Other: Voiding Method Indwelling Catheter Indwelling Catheter ABP, PAP, CO, CI - Last Documented Arterial Blood Pressure 153/92 - Constitutional Constitutional Comment(s): Sedated with propofol on mechanical ventilation, appears comfortable General appearance: Present: no acute distress, obese - Respiratory Details: Lungs sounds diminished in the bases bilaterally. Respirations even, nonlabored on mechanical ventilation. Current vent settings FiO2 50%, tidal volume 450, respiratory rate 20, PEEP 8. ABGs this morning on those settings 7.5/35/56/27/91%/3.6. 7.5 ET tube present, 22 at the lip. - Cardiovascular Details: S1, S2 present. Regular rate and rhythm, sinus rhythm with heart rate in the 80s. Palpable peripheral pulses bilaterally. Generalized edema present. Heart hugger, antiembolism stockings, SCDs present. Right femoral triple-lumen central line present. - Gastrointestinal Gastrointestinal Comment(s): Abdomen soft, nontender, nondistended. Active bowel sounds present 4 quadrants. OG tube present, tube feedings continue. Small soft brown stool las t night per nursing - Genitourinary Genitourinary Comment(s): Yu present draining yellow urine, 30-150 mL/hr. Right groin temporary dialysis catheter present - Integumentary Integumentary Comment(s): Anterior chest incision open, packed with sterile saline soaked kerlix and covered w/ ABD pad. Left lower extremity EVH site well approximated without redness or drainage, bruising present - Neurologic Neurologic: Present: CNII-XII intact - Psychiatric Psychiatric Comment(s): Currently sedated with propofol on mechanical ventilation, could not assess - Allied health notes Allied health notes reviewed: nursing - Labs CBC & Chem 7: 08/29/20 05:20 08/29/20 05:20 Labs: Abnormal Lab Results - Last 24 Hours (Table) 08/28/20 08/28/20 08/28/20 Range/Units 11:35 17:51 23:54 WBC (3.8-10.6) k/uL RBC (3.80-5.40) m/uL Hgb (11.4-16.0) gm/dL Hct (34.0-46.0) % RDW (11.5-15.5) % Plt Count (150-450) k/uL Neutrophils # (1.3-7.7) k/uL Eosinophils # (0-0.7) k/uL Basophils # (0-0.2) k/uL ABG pH (7.35-7.45) ABG pO2 (83-108) mmHg ABG HCO3 (21-25) mmol/L ABG Total CO2 (19-24) mmol/L ABG O2 Saturation (94-97) % Chloride (98-107) mmol/L BUN (7-17) mg/dL Glucose (74-99) mg/dL POC Glucose (mg/dL) 134 H 119 H 121 H (75-99) mg/dL Calcium (8.4-10.2) mg/dL Total Bilirubin (0.2-1.3) mg/dL AST (14-36) U/L ALT (4-34) U/L Alkaline Phosphatase (38-126) U/L Total Protein (6.3-8.2) g/dL Albumin (3.5-5.0) g/dL 08/29/20 08/29/20 08/29/20 Range/Units 05:20 05:20 05:45 WBC 24.2 H (3.8-10.6) k/uL RBC 3.47 L (3.80-5.40) m/uL Hgb 10.6 L (11.4-16.0) gm/dL Hct 31.6 L (34.0-46.0) % RDW 16.3 H (11.5-15.5) % Plt Count 80 L (150-450) k/uL Neutrophils # 18.5 H (1.3-7.7) k/uL Eosinophils # 1.4 H (0-0.7) k/uL Basophils # 0.3 H (0-0.2) k/uL ABG pH 7.50 H (7.35-7.45) ABG pO2 56 L* (83-108) mmHg ABG HCO3 27 H (21-25) mmol/L ABG Total CO2 28 H (19-24) mmol/L ABG O2 Saturation 90.8 L (94-97) % Chloride 109 H (98-107) mmol/L BUN 41 H (7-17) mg/dL Glucose 117 H (74-99) mg/dL POC Glucose (mg/dL) (75-99) mg/dL Calcium 7.7 L (8.4-10.2) mg/dL Total Bilirubin 3.4 H (0.2-1.3) mg/dL AST 69 H (14-36) U/L ALT 163 H (4-34) U/L Alkaline Phosphatase 315 H (38-126) U/L Total Protein 5.2 L (6.3-8.2) g/dL Albumin 2.2 L (3.5-5.0) g/dL 08/29/20 Range/Units 06:04 WBC (3.8-10.6) k/uL RBC (3.80-5.40) m/uL Hgb (11.4-16.0) gm/dL Hct (34.0-46.0) % RDW (11.5-15.5) % Plt Count (150-450) k/uL Neutrophils # (1.3-7.7) k/uL Eosinophils # (0-0.7) k/uL Basophils # (0-0.2) k/uL ABG pH (7.35-7.45) ABG pO2 (83-108) mmHg ABG HCO3 (21-25) mmol/L ABG Total CO2 (19-24) mmol/L ABG O2 Saturation (94-97) % Chloride (98-107) mmol/L BUN (7-17) mg/dL Glucose (74-99) mg/dL POC Glucose (mg/dL) 116 H (75-99) mg/dL Calcium (8.4-10.2) mg/dL Total Bilirubin (0.2-1.3) mg/dL AST (14-36) U/L ALT (4-34) U/L Alkaline Phosphatase (38-126) U/L Total Protein (6.3-8.2) g/dL Albumin (3.5-5.0) g/dL Microbiology - Last 24 Hours (Table) 08/26/20 10:15 Blood Culture Gram Stain - Final Blood Blood Culture - Final Staphylococcus aureus 08/28/20 11:00 Gram Stain - Preliminary Sputum Sputum Culture - Preliminary 08/24/20 05:45 Anaerobic Culture - Final Chest 08/26/20 08:00 Gram Stain - Preliminary Sputum Sputum Culture - Preliminary Presumptive Staph aureus 08/24/20 05:32 Blood Culture Gram Stain - Final Blood Blood Culture - Final Staphylococcus aureus - Imaging and Cardiology Chest x-ray: report reviewed, image reviewed Assessment and Plan Assessment: 1. Shortness of breath, acute diastolic heart failure, EF 55-60% on current TTE , bilateral pleural effusions 2. Lactic acidosis, septic shock, blood cultures positive for MSSA 3. Hypercapnic, hypoxic respiratory failure requiring BiPAP, with subsequent intubation and mechanical ventilation 4. Open sternal wound, surgically created, deep sternal wound infection with MSSA, S/P surgical exploration and debridement 5. Leukocytosis with bandemia 6. Acute kidney injury, metabolic acidosis 7. Acute hyperkalemia, resolved 8. Acute transaminitis secondary to hypoperfusion 9. History of hypertension, currently hypotensive requiring vasopressors 10. Acute anemia, post transfusion PRBCs, on 11. Coronary artery disease with left main stenosis status post 2 vessel CABG on 08/10/2020 with expected postoperative acute blood loss anemia, hypotension, and urinary retention as well as candidal stomatititus 12. Hyponatremia, resolved 13. Pulmonary fibrosis, asthma 14. Hyperlipidemia, treated 15. Previous tobacco dependence 16. Obesity 17. Paroxysmal afib w/ RVR, atrial flutter, currently sinus rhythm Plan: 1. Ventilator management per pulmonary medicine 2. Nephrology following, avoid nephrotoxins, HD/lasix per nephro 3. Infectious disease following, final blood cultures/sternal wound cultures positive for MSSA, continue antibiotics 4. Continue aspirin, statin, Plavix, beta sisi therapy. Avoid amio 2/2 transaminitis. Keep SBP 120-140 for perfusion of organs. Wean levo as tolerated 5. No anticoagulation 6. Will monitor daily labs and x-rays, ABGs. 7. Cardiothoracic surgery to change sternal dressing daily, RNs may reinforce but not to remove dressing, will eventually need wound vac 8. GI/DVT prophylaxis 9. Continue tube feeding for nutrition 10. Will update family daily 11. More recommendations to follow Time with Patient: Greater than 30
[2020-08-29] MEDS: ACETAMINOPHEN TAB 325 MG TAB PO PRN (11:47)
[2020-08-29 12:05] LABS: Glucose,Whole Blood 129 mg/dL (75-99)
--- NOTE | 2020-08-29 12:21 | P.PN ---
Subjective Progress Note Date: 08/29/20 Principal diagnosis: Acute hypoxic and hypercapnic respiratory failure secondary to sepsis and septic shock. This is a 75-year-old female with history of coronary artery disease, had recent left main stenosis and she underwent two-vessel CABG with HOLLAND to LAD, and saphenous vein graft to obtuse marginal on 08/10/2020. Patient was seen by us postoperatively on consultation, and she was eventually discharged. Her other medical problems include history of hyponatremia, pulmonary fibrosis, hypertension, dyslipidemia, [id number] smoking history, cervical stenosis and previous surgical disc disease, history of decompression and fusion. Patient was brought into the ER on 08/22/2020, and she was complaining of shortness of breath, patient was hypoxic and she was noted to have O2 saturation in the 80s. Chest x-ray showed evidence of pulmonary edema with bilateral pleural effusions, and patient was treated mostly with diuretics. However over the last 2 days, patient deteriorated, shortness of breath became worse, and today the patient was extremely dyspneic, chest x-ray was getting worse, patient was hypotensive, required fluid boluses, and I was notified about this patient early this morning, advised immediate transfer to the ICU, patient was placed on BiPAP, patient was also seen by nephrology, and her urine output is extremely poor, patient received fluid boluses for hypotension, in the meantime the patient was noted to have significant purulent drainage from her sternal incision site, and she clearly has wound dehiscence and sternal wound infection. Recommended broad-spectrum antibiotics on this patient, started on vancomycin and cefepime, patient was seen by infectious disease on consultation, she was also seen by nephrology planning hemodialysis, and vascular surgery saw the patient and placed a dialysis catheter. In the meantime patient was placed on BiPAP, she received fluids and pressors. I placed a central line in this patient an arterial line. Chest x-ray clearly shows evidence of bilateral interstitial edema. Patient was reevaluated today on 08/25/2020, remains in the ICU, she was on BiPAP earlier today, presently on high flow nasal cannula at 15 L/m. Yesterday she was on BiPAP 12/6 and 60% FiO2 this was overnight. Patient is off pressors, and this morning I stopped her sodium bicarb based on her ABG and based on her bicarb level as well as her electrolytes. Patient is getting hemodialysis again today, she had 2.2 L removed yesterday, and she would likely have the same this morning. Patient is awake, and bit dyspneic, anxious, agitated, chest x-ray continues to show evidence of pulmonary edema. Her sternal wound dehiscence seems to be significant, continues to have some purulent drainage, and that is being addressed by thoracic surgery on the case. Cultures from the sternal wound came back positive for gram-positive cocci in clusters, seen by infectious disease and she was transitioned to daptomycin instead of vancomycin. Hemoglobin is noted to be a bit low today, and I have ordered 1 unit of packed RBCs to be given. IV fluid is at 1 50 mL/h. Sodium bicarb is discontinued. Calcium gluconate was given for low calcium today. ABG showed a pO2 of 74 pCO2 of 40 pH of 7.47 and this was on a 15 L high flow nasal cannula. Hemoglobin is 6.5, and she will receive a unit of packed RBCs today. Electrolytes are normal BUN is 43 creatinine 2.79 Patient was reevaluated today on 08/26/2020, her clinical status deteriorated yesterday, patient was getting extremely agitated, restless, tachypneic tachycardic, she had a relatively normal ABG but based on her clinical picture, I recommended intubation and mechanical ventilation. She is now ventilated on assist control rate of 20 tablets volume is 450 FiO2 is 50% and PEEP is at 5. ABG showed a pO2 of 87 pCO2 of 39 pH of 7.43. She is on multiple drips inc luding IV fluid/0.9 normal saline at 50 mL per hour. Norepinephrine at 0.15 mcg/kg/m, propofol at 50 mcg/kg/m. Patient is being dialyzed and she is presently undergoing dialysis. Yesterday she had about 2 L off with dialysis. Patient is intermittently in A. fib with RVR. Presently in sinus rhythm. Her hemoglobin was noted to be low, received a total of 3 units of packed RBCs since yesterday. Hemoglobin today is 10.8. Patient was seen by infectious disease on consultation, and she was placed on cefepime and daptomycin replacing vancomycin, this is mostly for her presentation of sepsis and septic shock with sternal wound infection. The sternal wound is being addressed and cleaned by t horacic surgery on the case, patient may require surgical intervention may also require wound VAC. Blood cultures from 08/25 are positive for presumptive staph aureus. Wound cultures from the sternal wound, methicillin sensitive staph aureus. Urine cultures are negative so far. Yearly the patient started out of the sternal wound infection with MSSA, went on to develop sepsis, septic shock, and MSSA bacteremia. Hence we'll hold on any PICC line placement at this point, and we'll continue to use the central line Patient was reevaluated today on 08/27/2020, remains in the ICU, intubated and m echanically ventilated. Being treated for septic shock and bacteremia. Cultures have been positive for MSSA. Patient is on assist control rate of 20, volume 450 FiO2 50% PEEP of 5. ABG showed a pO2 of 71 pCO2 of 33 pH of 7.49. Patient is requiring norepinephrine at 0.12 mcg/kg/m, she is also on propofol at 50 mcg/kg/m, IV fluid at KVO. Net fluid balance is -1.4 L over the last 24 hours. Chest x-ray continues to show some evidence of interstitial edema and possibly a small left-sided pleural effusion. Patient has been receiving hemodialysis and ultrafiltration for the last 3 days, and over 6 L of fluid had been removed in the last 3 days. Today the patient has good urine output, renal functioning is improving, no dialysis is planned today, the patient was given Lasix by nephrology. Her urine output is about 50-60 mL per hour. And she was given 80 mg of Lasix daily as recommended by nephrology. Her sternal wound is being addressed by thoracic surgery today, and she may undergo surgery sometime later today. Labs today showed evidence of leukocytosis with WBC of 28.1 hemoglobin is 11.3. Liver enzymes remain elevated. And her BUN is down to 38 creatinine is 1. Reevaluated today on 08/28/2020, patient remains in the ICU, intubated and mechanically ventilated. Her assist-control rate is 20, volume is 450 FiO2 is 50% PEEP was at 5 and I increased it up to 8. ABG showed a pO2 of 57 pCO2 of 30 pH of 7.53. O2 saturation on the monitor is 96%. Patient remains on norepi nephrine at 0.07 mcg/kg/m, she is also on propofol at 65 mcg/kg/m. Patient is on enteral feeding. Remains on cefepime and daptomycin for her positive blood cultures/MSSA. Patient is also on Lasix at 80 mg IV push every 24 hours. Her urine output has been good. And her chest x-ray continues to show mild congestive heart failure changes. Patient has leukocytosis with WBC count 24.3, electrolytes are normal BUN is 46 creatinine 0.90. Liver enzymes are trending down slowly Patient was reevaluated today on 08/29/2020, remains intubated and mechanically ventilated. She is on assist control rate of 20 tidal volume is 450 FiO2 is 50% and PEEP of 8. ABG showed a pO2 of 56 pCO2 of 35 pH of 7.50 however her O2 saturation on the monitor is 99%. Patient remains on norepinephrine at 0.05 mcg/kg/m, he is on propofol at 70 mcg/kg/m, she is on Lasix 80 mg IV push daily, with good urine output. IV fluid mostly at KVO. Antibiotics garzon she is on cefazolin and clindamycin. Patient had MSSA in the blood and in the sternal wound. Chest x-ray continues to show evidence of pulmonary edema, and now she seems to be developing some consolidation in the right upper lobe medially. Her sternum remains open, decision regarding sternal closure will be made in the next 24-48 hours by thoracic surgery. Patient continues to have leukocytosis with WBC count of 24.2 hemoglobin is 10.6, basic metabolic profile is normal renal profile is normal not requiring any further dialysis, and she has good u rine output responding well to diuretics. Liver enzymes seem to be trending down Objective - Vital Signs Vital signs: Vital Signs Temp 101 F H 08/29/20 12:00 Pulse 96 08/29/20 12:00 Resp 33 H 08/29/20 12:00 BP 123/62 08/29/20 12:00 Pulse Ox 97 08/29/20 12:00 Intake & Output 08/28/20 08/29/20 08/29/20 18:59 06:59 18:59 Intake Total 6877.291 7332.494 637.041 Output Total 1715 1005 1400 Balance -484.927 424.494 -762.959 Weight 90.5 kg 91 kg Intake: IV 340 390 270 Clindamycin 900 mg In 50 50 50 Dextrose 5% in Water 50 ml @ 50 mls/hr IVPB Q8HR [facility] Rx#:[id number] Sodium Chloride 0.9% 1, 240 240 120 000 ml @ 20 mls/hr IV . Q24H [facility] Rx#:[id number] ceFAZolin 2 gm In Sodium 50 100 100 Chloride 0.9% 50 ml @ 100 mls/hr IVPB Q8HR [facility] Rx# :[id number] Intake, IV Titration 547.073 613.494 169.041 Amount Norepinephrine 4 mg In 201.141 173.537 76.362 Sodium Chloride 0.9% 250 ml @ 0.05 MCG/KG/MIN 14. 973 mls/hr IV .[id number] [facility] Rx#:[id number] propofoL 500 mg In Empty 345.932 439.957 92.679 Bag 1 bag @ Titrate IV . Q0M [facility] Rx#:[id number] Tube Feeding 253 276 138 Other 90 150 60 Output: Urine 1715 1005 1400 Other: Voiding Method Indwelling Catheter Indwelling Catheter Indwelling Catheter ABP, PAP, CO, CI - Last Documented Arterial Blood Pressure 153/92 - Exam PHYSICAL EXAMINATION: Revealed a 75-year-old female, obese, intubated, ventilated, sedated. On propofol. This was placed on hold shortly after evaluated the patient to assess her mental status. HEENT:, PERRLA, EOMI, nonicteric.Moist mucous membranes endotracheal tube and orogastric tubes are intact. CHEST EXAMINATION: Symmetrical chest expansion, crackles or rhonchi and wheezes noted bilaterally. Patient has sterile dressing over the sternal wound, supposedly is open and to be kept open as per thoracic surgery. HEART EXAMINATION Tachycardic, normal S1 and S2, 2/6 systolic murmur throughout the precordium. ABDOMEN: obese, Soft, nontender. Bowel sounds are heard. No organomegaly noted. EXTREMITIES:1+ peripheral pulses with evidence of mild peripheral edema and no calf tenderness noted. NEUROLOGIC EXAMINATION Sedated on propofol, could not assess. Psychiatric Sedated on propofol, could not assess. Skin: No rashes except for open sternal wound as noted above - Labs CBC & Chem 7: 08/29/20 05:20 08/29/20 05:20 Labs: Abnormal Lab Results - Last 24 Hours (Table) 08/28/20 08/28/20 08/29/20 Range/Units 17:51 23:54 05:20 WBC 24.2 H (3.8-10.6) k/uL RBC 3.47 L (3.80-5.40) m/uL Hgb 10.6 L (11.4-16.0) gm/dL Hct 31.6 L (34.0-46.0) % RDW 16.3 H (11.5-15.5) % Plt Count 80 L (150-450) k/uL Neutrophils # 18.5 H (1.3-7.7) k/uL Eosinophils # 1.4 H (0-0.7) k/uL Basophils # 0.3 H (0-0.2) k/uL ABG pH (7.35-7.45) ABG pO2 (83-108) mmHg ABG HCO3 (21-25) mmol/L ABG Total CO2 (19-24) mmol/L ABG O2 Saturation (94-97) % Chloride (98-107) mmol/L BUN (7-17) mg/dL Glucose (74-99) mg/dL POC Glucose (mg/dL) 119 H 121 H (75-99) mg/dL Calcium (8.4-10.2) mg/dL Total Bilirubin (0.2-1.3) mg/dL AST (14-36) U/L ALT (4-34) U/L Alkaline Phosphatase (38-126) U/L Total Protein (6.3-8.2) g/dL Albumin (3.5-5.0) g/dL 08/29/20 08/29/20 08/29/20 Range/Units 05:20 05:45 06:04 WBC (3.8-10.6) k/uL RBC (3.80-5.40) m/uL Hgb (11.4-16.0) gm/dL Hct (34.0-46.0) % RDW (11.5-15.5) % Plt Count (150-450) k/uL Neutrophils # (1.3-7.7) k/uL Eosinophils # (0-0.7) k/uL Basophils # (0-0.2) k/uL ABG pH 7.50 H (7.35-7.45) ABG pO2 56 L* (83-108) mmHg ABG HCO3 27 H (21-25) mmol/L ABG Total CO2 28 H (19-24) mmol/L ABG O2 Saturation 90.8 L (94-97) % Chloride 109 H (98-107) mmol/L BUN 41 H (7-17) mg/dL Glucose 117 H (74-99) mg/dL POC Glucose (mg/dL) 116 H (75-99) mg/dL Calcium 7.7 L (8.4-10.2) mg/dL Total Bilirubin 3.4 H (0.2-1.3) mg/dL AST 69 H (14-36) U/L ALT 163 H (4-34) U/L Alkaline Phosphatase 315 H (38-126) U/L Total Protein 5.2 L (6.3-8.2) g/dL Albumin 2.2 L (3.5-5.0) g/dL 08/29/20 Range/Units 12:04 WBC (3.8-10.6) k/uL RBC (3.80-5.40) m/uL Hgb (11.4-16.0) gm/dL Hct (34.0-46.0) % RDW (11.5-15.5) % Plt Count (150-450) k/uL Neutrophils # (1.3-7.7) k/uL Eosinophils # (0-0.7) k/uL Basophils # (0-0.2) k/uL ABG pH (7.35-7.45) ABG pO2 (83-108) mmHg ABG HCO3 (21-25) mmol/L ABG Total CO2 (19-24) mmol/L ABG O2 Saturation (94-97) % Chloride (98-107) mmol/L BUN (7-17) mg/dL Glucose (74-99) mg/dL POC Glucose (mg/dL) 129 H (75-99) mg/dL Calcium (8.4-10.2) mg/dL Total Bilirubin (0.2-1.3) mg/dL AST (14-36) U/L ALT (4-34) U/L Alkaline Phosphatase (38-126) U/L Total Protein (6.3-8.2) g/dL Albumin (3.5-5.0) g/dL Microbiology - Last 24 Hours (Table) 08/28/20 12:19 Blood Culture Gram Stain - Preliminary Blood 08/28/20 12:19 Blood Culture - Final Blood 08/26/20 08:00 Gram Stain - Final Sputum Sputum Culture - Final Staphylococcus aureus 08/26/20 10:15 Blood Culture Gram Stain - Final Blood Blood Culture - Final Staphylococcus aureus 08/28/20 11:00 Gram Stain - Preliminary Sputum Sputum Culture - Preliminary 08/24/20 05:45 Anaerobic Culture - Final Chest 08/24/20 05:32 Blood Culture Gram Stain - Final Blood Blood Culture - Final Staphylococcus aureus Assessment and Plan Assessment: Impression: Acute hypoxic and hypercapnic respiratory failure, requiring intubation and mechanical ventilation on 08/25/2020. Sepsis from sternal wound infection and separation.. Septic shock, primary source is sternal wound infection. This is secondary to M SSA. Patient is receiving clindamycin and cefazolin MSSA bacteremia and sepsis with septic shock. leukocytosis secondary to above. Acute kidney injury required brief period of hemodialysis, presently off hemodialysis.. Acute metabolic acidosis secondary to acute kidney injury and sepsis, resolved Acute transaminitis secondary to hypoperfusion. Acute diastolic congestive heart failure with bilateral pleural effusions History of hypertension History of cervical stenosis Previous tobacco dependence. History of mild interstitial lung disease/pulmonary fibrosis Status post sternal exploration with sternal debridement on 06/26/[address] Olivera. Sternum remains open at this point. Recommendation: Continue ventilatory support. At this point the patient is not ready for any weaning trials, however will recommend holding sedation and at least assessment of mental status on a daily basis. Continue hemodynamic support. Continue norepinephrine. Titrate accordingly. Continue nutritional support. Enteral feeding. Continue GI and DVT prophylaxis. Continue to monitor daily labs and renal profile. Continue to hold dialysis for now since the patient is making good urine. Continue sedation while on mechanical ventilation. But daily interruption of sedation will be recommended and assessment of mental status. No plans for any weaning today. Continue antibiotics for sepsis and septic shock as well as sternal wound infection. Remains critically ill, prognosis remains guarded. We'll continue to follow. Critical care time is over 30 minutes Time with Patient: Greater than 30
[2020-08-29] MEDS: ASCORBIC ACID 500 MG TAB PO SCH (12:43)
--- NOTE | 2020-08-29 13:21 | P.PN ---
Subjective Progress Note Date: 08/29/20 Principal diagnosis: Septic shock from infected sternal wound with dehiscence, CAD post CABG, respiratory failure on mechanical ventilation, hyperglycemia This is a 75-year-old female patient of Dr. Rich Avila, Dr. Sloan and Dr. Guadalupe. She has a past medical history significant for hypertension, hyperlipidemia, pulmonary fibrosis, asthma, obesity, remote history of tobacco dependence with smoking 32 years ago, osteoarthritis, cervical stenosis post anterior cervical decompression, discectomy and fusion, TIA as a child at age 11 and family history of premature coronary artery disease with her father being diagnosed in his early 50s. Recently, the patient has been experiencing episodes of shortness of breath over the past 6 months with just minimal activity. She also complained of some lower extremity swelling which did resolve with some diuresis. she underwent a stress test which showed anterior wall ischemia with small reversible defect. a 2-D echocardiogram which showed mild aortic valve insufficiency, mild mitral valve regurgitation, mild tricuspid valve regurgitation and left ventricular function to be normal with an ejection fraction of 55%. Subsequently she underwent an elective heart catheterization on 07/27/2020 which demonstrated a left main stenosis with QING with a calculation of 2.6 mm, a 40% stenosis to her mid left anterior descending coronary artery and a 30% stenosis to her right coronary artery. Due to the patient's symptoms and findings on her heart catheterization of left main stenosis a consult was placed to Dr. Sethi from cardiothoracic surgery for further evaluation and treatment recommendations. During her preoperative workup her serum sodium level was found to be 120 and was admitted prior to surgery for treatment of hyponatremia. Last admission On 08/06/2020-08/19/20 the patient was admitted to the hospital for treatment of her hyponatremia, and once her hyponatremia was resolved on 08/10/2020, asubsequently taken to the operating room where Dr. Sethi performed a double vessel coronary artery bypass grafting surgery using the left internal mammary artery to left anterior setting coronary artery, a reverse greater saphenous vein graft from the aorta to the first obtuse marginal coronary arter y, endoscopic harvesting of the left greater saphenous vein from the groin Upon completion of the surgery the patient was transferred to the intensive care unit where she was recovered, monitored hemodynamically and where she progressed cardiac rehabilitation phase Her oxygen was titrated down, she continued to work with physical/occupational therapy and cardiac rehabilitation, she was tolerating an oral diet, her pain was well controlled without narcotics and she was ready to be discharged home with [facility] care on postoperative day #9. Did not require home O2 on last admission however she required new medication changes including diuretics during that last admission. Patient comes in in worsening shortness of breath anasarca, no chest pain, has BARKER, edma without leg pain new medications from last visit was compliant, requiring lipitor 75bid, tolvaptan. meotprolol 75 bid plavix, lasix 40 mg daily losartain 25 asa 325, ferrous sulfate and fluconazole. patient comes in now for CHF, anarsarc ely pleural effusion, consult with dr Sethi. and cardiology, if okay will be cardiothoracic surgeon can also perform the thoracentesis, however with hypoxemia, also have requested Dr. Gamboa's services. Patient has a hemoglobin of 7.0 on and 3, platelet count of 305, hemoglobin right to admission was 8.0 denies any Hemoccult stools, creatinine was 1.60 from a previous of 0.9 blood pressure is in the low 90s systolic, pulse ox, 90 on 4 L nasal cannula, patient was not discharged with home O2 during her last admission 08/24: A-Team was called for mental status changes. Patient was found to have a blood pressure 99/65, heart rate of 85 and pulse ox of 96% on a nonrebreather with respiratory rate of 32. Patient was transferred to the ICU. She was started on vancomycin and cefepime. Patient has been seen by cardiology with plan to continue vasopressor support, patient may need pleurocentesis. Stat echocardiogram was done to rule out pericardial effusion or tamponade. Patient has been seen by nephrology for acute kidney injury secondary to ATN secondary to hypotension and cardiorenal syndrome. Patient is currently on bicarb drip, status post Lasix 80 mg IV once. Renal replacement therapy to be initiated immediately. Vascular consult in place for a dialysis catheter placement and start hemodialysis today with second treatment tomorrow. Sternal wound was producing thick yellowish brown fluid, was opened approximately 2 cm and deep culture was taken, packed and covered with 4 x 4 dressing. She is requiring vasopressors. She is hypothermic and warming blanket is in place.Patient had minimal output yesterday and none today. She is status post 2.5 L of fluids. 2/16 patient was examined in the ICU. She was able to maintain oxygenation on BiPAP overnight switch to high flow 15 m this morning. Patient did have episodes of agitation last night and was started on Seroquel. She did receive a dose of Seroquel prior to admission and was found to be resting comfortably. Patient is off pressors and bicarbonate drip and metabolic acidosis seemed to have cleared off. On evaluation of patient's lab, WBC is 14.3, hemoglobin 6.5 platelet 208 ABG this morning has a pH of 7.47 CO2 74. Bicarb 29. Sodium has improved to 126 chloride 96 BUN 43 creatinine 2.79 lactic acid has improved to 2.9 calcium 7 liver enzymes elevated AST at 2874 ALT 1469 alkaline phosphatase 192 CRP 356 BNP 13,000 UA does suggest some infection with WBC of 88 hyaline casts 33 protein 2+ urine blood trace nitrite negative leukocyte Estrace negative. Wound cultures positive for presumptive staph aureus. Patient's blood culture from yesterday are positive with presumptive staph aureus. Repeat blood cultures ordered. Patient received 1 unit of PRBCs for low hemoglobin. Urine output has improved to 20-40 mL's per hour. Patient did receive a dose of DDAVP for hyponatremia. Normal saline is running at 50 mL per hour. Did receive hemodialysis today with 2 L ultrafiltration. Patient was also noted to be in A. fib with RVR intermittently and her dose of Lopressor was increased to 25 mg every 8 hours. Continue daptomycin and cefepime for antibiotic coverage. Monitor patient's for QTC prolongation well on Seroquel. Patient has significant dehiscence of wound and may need I&D 08/27 she remains in the ICU, intubated and mechanically ventilated. Patient is going to the OR for debridement today. Patient remains intubated on 50% FiO2 and PEEP of 5, assist control rate of 20volume 450. Continues to require Levophed at 11mcg/ hr . Blood clots and culture positive for MSSA. Urine output is 50-60 mL per hour. Patient continues to be on sedation from propofol at 50 max per KG permanent. IV fluids at KVO. Patient continues to have good urine output after a dose of 80 mg of IV Lasix today. Vision tolerated 2.5 L ultrafiltration yesterday and is started on hemodialysis on August 24. No holiday sedation today. Plan to continue Lasix 80 IV once daily and holding hemodialysis. Anticoagulation held for debridement. 08/28 patient remains in the ICU. Did have sternal Exploration and debridement yesterday remains sedated on propofol. Patient continues to have high temp of 101.6, to 233 tachycardic 111 blood pressure 106/51 oxygen saturation 95% on 50% FiO2. Labs suggest a leukocytosis of 24.3 hemoglobin stable at 10.7 platelet count has dipped dropped to 78, he really suggest a pH of 7.53 pCO2 30 PaO2 57, chloride of 110 potassium 3.5 and anion gap of 6 BUN 46 creatinine 0.9 calcium 7.8 ALT 3:15 alkaline phosphatase 312 AST 112 blood cultures from 08/26 positive for staph aureus. Urine output 1.2 L in 24 hours Repeat blood cultures sent today. Patient continues to be normal sinus rhythm not currently on any anticoagulation at the possibility of going for another debridement. Patient's continues to be on levo fed and still stays intubated. Continue IV Lasix. Patient initiated on IV Lasix 08/29: Patient remain in the ICU, remain on mechanical ventilation, sternal exploration and debridement was done and still have packing area within open wound at this point. Oxygenation is better patient is not 3 to be off vent at this point. Her urine output has been good and hemodynamically stable. Objective - Vital Signs Vital signs: Vital Signs Temp 101 F H 08/29/20 12:00 Pulse 97 08/29/20 13:00 Resp 32 H 08/29/20 13:00 BP 133/56 08/29/20 13:00 Pulse Ox 97 08/29/20 13:00 Intake & Output 08/28/20 08/29/20 08/29/20 18:59 06:59 18:59 Intake Total 9758.860 8286.494 688.626 Output Total 1715 1005 1610 Balance -484.927 424.494 -921.374 Weight 90.5 kg 91 kg Intake: IV 340 390 290 Clindamycin 900 mg In 50 50 50 Dextrose 5% in Water 50 ml @ 50 mls/hr IVPB Q8HR T[facility]IB[facility] Rx#:[id number] Sodium Chloride 0.9% 1, 240 240 140 000 ml @ 20 mls/hr IV . Q24H [facility]ORIBIO Rx#:[id number] ceFAZolin 2 gm In Sodium 50 100 100 Chloride 0.9% 50 ml @ 100 mls/hr IVPB Q8HR TORIBIO Rx# :[id number] Intake, IV Titration 547.073 613.494 177.626 Amount Norepinephrine 4 mg In 201.141 173.537 84.947 Sodium Chloride 0.9% 250 ml @ 0.05 MCG/KG/MIN 14. 973 mls/hr IV .[id number] [facility]ORIBIO Rx#:[id number] propofoL 500 mg In Empty 345.932 439.957 92.679 Bag 1 bag @ Titrate IV . Q0M [facility]ORIBIO Rx#:[id number] Tube Feeding 253 276 161 Other 90 150 60 Output: Urine 1715 1005 1610 Other: Voiding Method Indwelling Catheter Indwelling Catheter Indwelling Catheter ABP, PAP, CO, CI - Last Documented Arterial Blood Pressure 153/92 - Exam Review of systems: Not able to do patient is on mechanical ventilation. PHYSICAL EXAMINATION Gen: This is a 75-year-old female. Intubated She is in the ICU. Tonya blanket in place for hypothermia. HEENT: Head is atraumatic, normocephalic. Pupils equal, round. Sclerae is anicteric. Patient is intubated, central incision dressed NECK: Supple. No JVD. No lymphadenopathy. No thyromegaly. LUNGS: Diminished. No wheezes or rhonchi. No intercostal retractions. HEART: Regular rate and rhythm. 2/6 systolic murmur. Dressing in place to sternal wound with reported purulent drainage. ABDOMEN: Soft. Bowel sounds are present. No masses. No tenderness. EXTREMITIES: 2+ bilat pitting edema. No calf tenderness. NEUROLOGICAL: Patient is sleeping - Labs CBC & Chem 7: 08/29/20 05:20 08/29/20 05:20 Labs: Abnormal Lab Results - Last 24 Hours (Table) 08/28/20 08/28/20 08/29/20 Range/Units 17:51 23:54 05:20 WBC 24.2 H (3.8-10.6) k/uL RBC 3.47 L (3.80-5.40) m/uL Hgb 10.6 L (11.4-16.0) gm/dL Hct 31.6 L (34.0-46.0) % RDW 16.3 H (11.5-15.5) % Plt Count 80 L (150-450) k/uL Neutrophils # 18.5 H (1.3-7.7) k/uL Eosinophils # 1.4 H (0-0.7) k/uL Basophils # 0.3 H (0-0.2) k/uL ABG pH (7.35-7.45) ABG pO2 (83-108) mmHg ABG HCO3 (21-25) mmol/L ABG Total CO2 (19-24) mmol/L ABG O2 Saturation (94-97) % Chloride (98-107) mmol/L BUN (7-17) mg/dL Glucose (74-99) mg/dL POC Glucose (mg/dL) 119 H 121 H (75-99) mg/dL Calcium (8.4-10.2) mg/dL Total Bilirubin (0.2-1.3) mg/dL AST (14-36) U/L ALT (4-34) U/L Alkaline Phosphatase (38-126) U/L Total Protein (6.3-8.2) g/dL Albumin (3.5-5.0) g/dL 08/29/20 08/29/20 08/29/20 Range/Units 05:20 05:45 06:04 WBC (3.8-10.6) k/uL RBC (3.80-5.40) m/uL Hgb (11.4-16.0) gm/dL Hct (34.0-46.0) % RDW (11.5-15.5) % Plt Count (150-450) k/uL Neutrophils # (1.3-7.7) k/uL Eosinophils # (0-0.7) k/uL Basophils # (0-0.2) k/uL ABG pH 7.50 H (7.35-7.45) ABG pO2 56 L* (83-108) mmHg ABG HCO3 27 H (21-25) mmol/L ABG Total CO2 28 H (19-24) mmol/L ABG O2 Saturation 90.8 L (94-97) % Chloride 109 H (98-107) mmol/L BUN 41 H (7-17) mg/dL Glucose 117 H (74-99) mg/dL POC Glucose (mg/dL) 116 H (75-99) mg/dL Calcium 7.7 L (8.4-10.2) mg/dL Total Bilirubin 3.4 H (0.2-1.3) mg/dL AST 69 H (14-36) U/L ALT 163 H (4-34) U/L Alkaline Phosphatase 315 H (38-126) U/L Total Protein 5.2 L (6.3-8.2) g/dL Albumin 2.2 L (3.5-5.0) g/dL 08/29/20 Range/Units 12:04 WBC (3.8-10.6) k/uL RBC (3.80-5.40) m/uL Hgb (11.4-16.0) gm/dL Hct (34.0-46.0) % RDW (11.5-15.5) % Plt Count (150-450) k/uL Neutrophils # (1.3-7.7) k/uL Eosinophils # (0-0.7) k/uL Basophils # (0-0.2) k/uL ABG pH (7.35-7.45) ABG pO2 (83-108) mmHg ABG HCO3 (21-25) mmol/L ABG Total CO2 (19-24) mmol/L ABG O2 Saturation (94-97) % Chloride (98-107) mmol/L BUN (7-17) mg/dL Glucose (74-99) mg/dL POC Glucose (mg/dL) 129 H (75-99) mg/dL Calcium (8.4-10.2) mg/dL Total Bilirubin (0.2-1.3) mg/dL AST (14-36) U/L ALT (4-34) U/L Alkaline Phosphatase (38-126) U/L Total Protein (6.3-8.2) g/dL Albumin (3.5-5.0) g/dL Microbiology - Last 24 Hours (Table) 08/28/20 12:19 Blood Culture Gram Stain - Preliminary Blood 08/28/20 12:19 Blood Culture - Final Blood 08/26/20 08:00 Gram Stain - Final Sputum Sputum Culture - Final Staphylococcus aureus 08/26/20 10:15 Blood Culture Gram Stain - Final Blood Blood Culture - Final Staphylococcus aureus 08/28/20 11:00 Gram Stain - Preliminary Sputum Sputum Culture - Preliminary 08/24/20 05:45 Anaerobic Culture - Final Chest Assessment and Plan Assessment: 1. Sepsis with septic shock with multiorgan failure with metabolic encephalopathy, acute kidney injury, acute heart failure, acute respiratory failure. Status post sternal exploration and debridement on 08/27 Patient on daptomycin and cefepime. Off vasopressors. Blood culture and wound culture positive for MSSA. 2. Acute hypoxemic respiratory failure with pulmonary edema and pleural effusions secondary to CHF, diastolic, EF 55-60% on current TTE, Patient has underlying pulmonary hypertension as well, consult with cardiology, see above. O2 supplementation, patient's currently chest pain-free, negative for covid on lasix 80 m giv daily, continue mechanical ventilation 3. Acute kidney injury secondary to ATN secondary to hypotension and cardiorenal syndrome. on hemodialysis , no treatment todya 4. Hyperkalemia secondary to potassium supplementation, losartan and acute kidney injury as well as severe acidosis. Consult with nephrology appreciated. Continue medical management. 5. Hyperglycemia: Continue to watch blood sugar on Accu-Chek sliding scales coverage only. 6. Metabolic encephalopathy secondary to sepsis, acute kidney injury, acute heart failure, acute respiratory failure, metabolic acidosis and hyperkalemia. 7. Acute diastolic heart failure, EF 55%, mild AI and mild MR and mild TR, also complicated by severe protein calorie malnutrition. 8. Open sternal wound: Post debridement, still seen infectious disease and critical care, continue IV antibiotic continue wound care. 9. Anemia of chronic blood loss from recent surgery. Continue monitor closely and transfuse if hemoglobin 7 or below. On iron supplementations status post 1 unit PRBC on 06/24 10. Hypervolemic Hyponatremia. Status post DDAVP and dialysis s/p 2.5 L ultrafiltration on 08/26 11. CAD, with prior CABG performed on 08/10/2020, two-vessel, involving HOLLAND to LAD, and reverse greater saphenous vein to obtuse marginal coronary artery. held aspirin 325 mg daily, continue Plavix 75 mg daily, Toprol all 75 mg twice a day, 12. Moderate protein calorie malnutrition, with anasarca and hypotension. 13. History of pulmonary fibrosis. Continue duo nebs and albuterol 14. Asthma, mild intermittent. Continue ipratropium albuterol nebulizers 15. Hyperlipidemia. Continue statin daily 16. Hypertension. Currently hypotensive 17. GI prophylaxis. Pantoprazole 18. DVT prophylaxis: SCDs CODE STATUS: Full code.
[2020-08-29] MEDS: FERROUS SULFATE ORAL ELIXIR 300 MG/5 ML CUP PO SCH (13:35)
--- NOTE | 2020-08-29 14:51 | PN ---
PROGRESS NOTE Patient is seen for followup for acute kidney injury, hyperkalemia and volume overload. She did receive hemodialysis initially, however, she has not had any treatment since August 26. Urine output has increased. The patient is currently maintained on IV Lasix and her serum creatinine is currently at 0.7 mg/dL. It did peak at around 3.1. Patient remains on the vent. FiO2 is at 50%, PEEP of 8. 24 hour I and Os show only 300 mL negative for 24 hours. A 24 hour urine output was about 2.7 L. PHYSICAL EXAMINATION: On examination today, the patient is sedated, she is on the vent. Blood pressure was 121/71, heart rate 95 per minute, patient is afebrile. Examination of the heart S1, S2. Examination of lungs, bilateral breath sounds are heard. Abdomen is soft. Examination of lower extremities shows edema 2 to 3+ bilaterally. S[employer] exam cannot be performed. LAB: Show hemoglobin 10.6, white cell count 24.2, sodium 143 potassium 3.5, chloride 109, BUN 41, creatinine 0.73, albumin 2.2. ASSESSMENT: 1. Acute kidney injury, acute tubular necrosis/cardiorenal, currently off dialysis with good urine output. However, patient is still not in significant negative balance. I will increase the Lasix to 80 mg Q 12 hours. Continue off dialysis for now. 2. Volume overload, slowly improving. 3. Hyperkalemia associated with acute kidney injury on initial admission, now improved. 4. Acute hypoxic respiratory failure maintained on the vent, sedation is being decreased. 5. Acute blood loss anemia status post packed RBCs transfusion on initial admission, maintained on Aranesp as well. 6. Wound dehiscence of the sternum. Wound culture positive for Staph aureus, status post I and D yesterday. 7. Status post coronary artery bypass grafting on 08/10/2020. PLAN: Continue to hold off on dialysis. Increase Lasix to q.12 hours. Continue antibiotics. Continue with the midodrine as well and try to wean down Levophed. Repeat labs in a.m. MMANAL / TRANN: [id number] /
[2020-08-29] MEDS: IPRATROPIUM-ALBUTEROL 3 ML NEB INHALATION PRN (15:03)
--- NOTE | 2020-08-29 15:38 | PN ---
PROGRESS NOTE DATE OF SERVICE: 08/29/2020 REASON FOR FOLLOWUP: MSSA bacteremia secondary to the sternal wound infection. INTERVAL HISTORY: The patient is currently afebrile. Patient is hemodynamically stable. Has been taken off the pressors. FiO2 is currently 50%. No significant secretions through the ET or any diarrhea reported by the nursing staff. PHYSICAL EXAMINATION: Blood pressure 113/60, pulse 93, temperature 99. She is 97% on 50% FiO2. General description is an elderly female lying in bed in no distress. Respiratory system: Unlabored breathing, decreased breath sounds at bases. No wheeze. HEART: S1, S2. Regular rate and rhythm. Abdomen soft, no tenderness. LABS: Hemoglobin 10.6, white count 4.2 with a BUN of 41, creatinine 0.73, culture still positive for MSSA. DIAGNOSTIC IMPRESSION AND PLAN: Patient with MSSA bacteremia secondary to sternal wound infection, osteomyelitis with sensitivity positive blood culture. Antibiotic was switched over to nafcillin. Continue the clindamycin with concern for possible aspiration pneumonitis and monitor clinical course closely. MMODL / IJN: [id number] /
[2020-08-29] MEDS: NAFCILLIN 2 GM in DEXTROSE 5% IN WATER 100 ML IVPB SCH ×4 (16:12→20:46)
[2020-08-29 17:21] LABS: Glucose,Whole Blood 128 mg/dL (75-99)
[2020-08-29] MEDS ORDERED: POTASSIUM BICARBONATE/CIT AC 20 MEQ TABLET.EFF NG-TUBE SCH (18:00)
[2020-08-29] MEDS: SENNOSIDES-DOCUSATE SODIUM 1 EACH TAB PO SCH (20:47)
[2020-08-29 23:57] LABS: ABG PO2 57 mmHg (83-108)
[2020-08-30 00:07] LABS: Glucose,Whole Blood 117 mg/dL (75-99)
[2020-08-30] MEDS: HEPARIN SODIUM,PORCINE 5,000 UNIT/ML 1 ML VIAL SQ SCH ×3 (00:32→16:25)
[2020-08-30] MEDS: METOPROLOL TARTRATE 25 MG TAB PO SCH ×3 (00:33→16:25)
[2020-08-30] MEDS: CLINDAMYCIN 900 MG in DEXTROSE 5% IN WATER 50 ML IVPB SCH ×6 (00:33→16:25)
[2020-08-30] MEDS: INSULIN ASPART (NovoLOG) 100 UNIT/ML VIAL SQ SCH ×4 (03:43→17:21)
[2020-08-30] MEDS: NAFCILLIN 2 GM in DEXTROSE 5% IN WATER 100 ML IVPB SCH ×12 (03:44→21:14)
[2020-08-30] MEDS: SODIUM CHLORIDE 0.9% 1,000 ML IV SCH (03:46)
[2020-08-30 04:50] LABS: Anisocytosis Slight; Basophils # (A) 0.1 k/uL (0-0.2); Basophils % (A) 1 %; Eosinophils # (A) 0.6 k/uL (0-0.7); Eosinophils % (A) 3 %; HCT 31.7 % (34.0-46.0); HGB 10.2 gm/dL (11.4-16.0); Hypochromasia Moderate; Lymphocytes # (A) 2.5 k/uL (1.0-4.8); Lymphocytes % (A) 13 %; MCH 29.4 pg (25.0-35.0); MCHC 32.2 g/dL (31.0-37.0); MCV 91.5 fL (80.0-100.0); Mean Platelet Volume 10.4; Monocytes # (A) 0.5 k/uL (0-1.0); Monocytes % (A) 3 %; Neutrophils # (A) 15.8 k/uL (1.3-7.7); Neutrophils % (A) 80 %; Poikilocytosis Slight; RBC 3.47 m/uL (3.80-5.40); RDW 16.2 % (11.5-15.5); WBC 19.8 k/uL (3.8-10.6)
[2020-08-30 05:02] LABS: Platelet Count 90 k/uL (150-450)
[2020-08-30 05:13] LABS: Albumin 2.2 g/dL (3.5-5.0); Calcium 7.5 mg/dL (8.4-10.2); Potassium 3.4 mmol/L (3.5-5.1); Total Bilirubin 5.2 mg/dL (0.2-1.3); Total Protein 5.6 g/dL (6.3-8.2)
[2020-08-30 05:20] LABS: ABG Base Excess 7.9 mmol/L; ABG HCO3 30 mmol/L (21-25); ABG Oxygen Saturation 96.6 % (94-97); ABG PCO2 35 mmHg (35-45); ABG PH 7.55 (7.35-7.45); ABG PO2 72 mmHg (83-108); ABG TCO2 31 mmol/L (19-24); Allen Test Performed? Yes
[2020-08-30 06:02] LABS: Glucose,Whole Blood 121 mg/dL (75-99)
[2020-08-30] MEDS: NOREPINEPHRINE 4 MG in SODIUM CHLORIDE 0.9% 250 ML IV SCH (06:13)
[2020-08-30] MEDS: POTASSIUM BICARBONATE/CIT AC 20 MEQ TABLET.EFF NG-TUBE SCH ×4 (06:50→17:28)
--- NOTE | 2020-08-30 07:12 | XR ---
EXAMINATION TYPE: XR chest 1V portable DATE OF EXAM: 08/30/2020 COMPARISON: 08/29/2020 HISTORY: SOB, Follow Up FINDINGS: Indwelling tubes and catheters are unchanged. Diffuse bilateral airspace infiltrates persist with interval progression suggested. Stable appearance of the cardio-mediastinal structures at this time. Pleural effusion unchanged. IMPRESSION: 1. Diffuse bilateral airspace infiltrates persist with interval progression suggested. Clinical cor relation and follow up until resolution is recommended.
--- NOTE | 2020-08-30 07:26 | P.PN ---
Subjective Progress Note Date: 08/30/20 Principal diagnosis: Hypotension This is a 75-year-old female patient who underwent coronary artery bypass grafting times to 2 weeks ago with also history of pulmonary fibrosis as well as multiple comorbid conditions was admitted to the hospital initiated with increasing shortness of breath without any symptoms of chest pain or chest discomfort. Subsequently the patient was admitted to the [address] [place] [address] unit and subsequently she was transferred to the intensive because increasing shortness of breath and also change in mental status. She was diagnosed with sepsis secondary to infection incision site at sternum. She went to the OR once for wound debridement and she underwent an underwent debridement yesterday bedside. The patient was seen today 08/30/2020. She has been maintaining normal sinus mechanism. Oral anticoagulation on hold at this point because the patient might go to the OR again for debridement. If not she needs to be on anticoagulation for paroxysmal atrial fibrillation. He underwent an echo she is stable and she's of norepinephrine. She continues to be on Lasix IV and she is putting significant amount of urine. She definitely looks less erythematous. She continues to be on dual antiplatelet therapy and also she is on metoprolol. Statin is on hold because of abnormal liver function test when she presented. The creatinine has normalized. The hemoglobin is a stable. Objective - Vital Signs Vital signs: Vital Signs Temp 99.3 F 08/30/20 04:00 Pulse 77 08/30/20 07:00 Resp 24 08/30/20 07:00 BP 112/48 08/30/20 07:00 Pulse Ox 97 08/30/20 07:00 Intake & Output 08/29/20 08/30/20 08/30/20 18:59 06:59 18:59 Intake Total 9676.663 2218.875 20 Output Total 2045 1785 75 Balance -944.804 -588.125 -55 Weight 90.5 kg Intake: IV 440 440 20 Clindamycin 900 mg In 100 Dextrose 5% in Water 50 ml @ 50 mls/hr IVPB Q8HR [facility] Rx#:[id number] Nafcillin 2 gm In 200 Dextrose 5% in Water 100 ml @ 50 mls/hr IVPB Q4HR [facility] Rx#:[id number] Sodium Chloride 0.9% 1, 240 240 20 000 ml @ 20 mls/hr IV . Q24H [facility] Rx#:[id number] ceFAZolin 2 gm In Sodium 100 Chloride 0.9% 50 ml @ 100 mls/hr IVPB Q8HR [facility] Rx# :[id number] Intake, IV Titration 294.196 390.875 Amount Nafcillin 2 gm In 100 Dextrose 5% in Water 100 ml @ 50 mls/hr IVPB Q4HR [facility] Rx#:[id number] Norepinephrine 4 mg In 101.517 115.395 Sodium Chloride 0.9% 250 ml @ 0.05 MCG/KG/MIN 14. 973 mls/hr IV .[id number] [facility] Rx#:[id number] propofoL 500 mg In Empty 92.679 275.48 Bag 1 bag @ Titrate IV . Q0M [facility] Rx#:[id number] Tube Feeding 276 276 Other 90 90 Output: Urine 2045 1785 75 Other: Voiding Method Indwelling Catheter Indwelling Catheter ABP, PAP, CO, CI - Last Documented Arterial Blood Pressure 153/92 - Constitutional General appearance: Present: no acute distress - Respiratory Respiratory: bilateral: diminished - Cardiovascular Rhythm: regular Heart sounds: normal: S1, S2 - Labs CBC & Chem 7: 08/30/20 03:56 08/30/20 03:56 Labs: Abnormal Lab Results - Last 24 Hours (Table) 08/28/20 08/29/20 08/29/20 Range/Units 04:45 12:04 17:19 WBC (3.8-10.6) k/uL RBC (3.80-5.40) m/uL Hgb (11.4-16.0) gm/dL Hct (34.0-46.0) % RDW (11.5-15.5) % Plt Count (150-450) k/uL Neutrophils # (1.3-7.7) k/uL ABG pH (7.35-7.45) ABG pO2 57 L* (83-108) mmHg ABG HCO3 (21-25) mmol/L ABG Total CO2 (19-24) mmol/L Potassium (3.5-5.1) mmol/L BUN (7-17) mg/dL Glucose (74-99) mg/dL POC Glucose (mg/dL) 129 H 128 H (75-99) mg/dL Calcium (8.4-10.2) mg/dL Total Bilirubin (0.2-1.3) mg/dL AST (14-36) U/L ALT (4-34) U/L Alkaline Phosphatase (38-126) U/L Total Protein (6.3-8.2) g/dL Albumin (3.5-5.0) g/dL 08/30/20 08/30/20 08/30/20 Range/Units 00:05 03:56 03:56 WBC 19.8 H (3.8-10.6) k/uL RBC 3.47 L (3.80-5.40) m/uL Hgb 10.2 L (11.4-16.0) gm/dL Hct 31.7 L (34.0-46.0) % RDW 16.2 H (11.5-15.5) % Plt Count 90 L (150-450) k/uL Neutrophils # 15.8 H (1.3-7.7) k/uL ABG pH (7.35-7.45) ABG pO2 (83-108) mmHg ABG HCO3 (21-25) mmol/L ABG Total CO2 (19-24) mmol/L Potassium 3.4 L (3.5-5.1) mmol/L BUN 43 H (7-17) mg/dL Glucose 121 H (74-99) mg/dL POC Glucose (mg/dL) 117 H (75-99) mg/dL Calcium 7.5 L (8.4-10.2) mg/dL Total Bilirubin 5.2 H (0.2-1.3) mg/dL AST 68 H (14-36) U/L ALT 77 H (4-34) U/L Alkaline Phosphatase 332 H (38-126) U/L Total Protein 5.6 L (6.3-8.2) g/dL Albumin 2.2 L (3.5-5.0) g/dL 08/30/20 08/30/20 Range/Units 05:15 06:00 WBC (3.8-10.6) k/uL RBC (3.80-5.40) m/uL Hgb (11.4-16.0) gm/dL Hct (34.0-46.0) % RDW (11.5-15.5) % Plt Count (150-450) k/uL Neutrophils # (1.3-7.7) k/uL ABG pH 7.55 H (7.35-7.45) ABG pO2 72 L (83-108) mmHg ABG HCO3 30 H (21-25) mmol/L ABG Total CO2 31 H (19-24) mmol/L Potassium (3.5-5.1) mmol/L BUN (7-17) mg/dL Glucose (74-99) mg/dL POC Glucose (mg/dL) 121 H (75-99) mg/dL Calcium (8.4-10.2) mg/dL Total Bilirubin (0.2-1.3) mg/dL AST (14-36) U/L ALT (4-34) U/L Alkaline Phosphatase (38-126) U/L Total Protein (6.3-8.2) g/dL Albumin (3.5-5.0) g/dL Microbiology - Last 24 Hours (Table) 08/28/20 12:04 Blood Culture Gram Stain - Preliminary Blood 08/28/20 12:19 Blood Culture Gram Stain - Preliminary Blood Blood Culture - Preliminary Presumptive Staph aureus 08/28/20 12:04 Blood Culture - Final Blood 08/28/20 11:00 Gram Stain - Preliminary Sputum Sputum Culture - Preliminary 08/28/20 12:19 Blood Culture - Final Blood 08/26/20 08:00 Gram Stain - Final Sputum Sputum Culture - Final Staphylococcus aureus Assessment and Plan Assessment: Assessment #1 change in mental status #2 acute hypoxic respiratory failure #3 hypotension requiring norepinephrine which has improved #3 atrial flutter was controlled heart rate. The patient converted to normal sinus mechanism #4 sepsis and status post wound debridement #5 multiple comorbid conditions Plan #1 continue the current medical regimen #2 continue the current dose of metoprolol #3 restart the patient on oral anticoagulation once is safe from the surgical standpoint of view and we know that she is not going to the OR any more #4 continue monitor the kidney function and electrolytes #5 restart the statin was silver function test has normalized
--- NOTE | 2020-08-30 07:47 | P.PN ---
Subjective Progress Note Date: 08/30/20 Principal diagnosis: Shortness of breath, acute diastolic heart failure, bilateral pleural effusion, lactic acidosis, hypercapnic respiratory failure requiring BiPAP followed by sc chanical ventilation, deep sternal wound infection with MSSA, acute kidney injury, acute hyperkalemia, hyponatremia, acute transaminitis, hypotension requiring vasopressors use, acute anemia. Previous medical history of coronary artery disease with left main stenosis status post 2 vessel CABG on 08/10/2020 with expected postoperative acute blood loss anemia, hypotension, and urinary retention as well as candidal stomatititus, hyponatremia, pulmonary fibrosis, asthma, hypertension, hyperlipidemia, previous tobacco dependence, obesity, osteoarthritis, cervical stenosis post anterior cervical disc decompression, discectomy and fusion, TIA as a child, family history of premature coronary artery disease. Paroxysmal Afib w/ RVR POD #3 sternal exploration with sternal debridement The patient was seen and examined at the bedside in the ICU. Remains sedated on propofol and mechanically ventilated. Patient was off sedation for several hours yesterday, not responding to command at all, was asynchronous with the ventilator so she was placed back on propofol. T-max 101 in the last 24 hours, WBC 19.8, blood cultures positive for MSSA, sternal wound culture positive for MSSA. Sputum culture pending, presumptive staph 2, preliminary negative for organisms 08/28. Patient remains on IV clindamycin and nafcillin per infectious disease. Currently in NSR with HR in the 70s. Blood pressure stable on IV Levophed, dose continues to be titrated down. Kidney function and liver function is slightly improved, BUN 43, creatinine 0.82, AST 68, ALT 77. Hemoglobin 10.2 this morning. Tube feeds continue. Dialysis on hold, continuous on IV lasix per nephrology with excellent diuresis. Sternal wound dressing changed with Dr. Olivera yesterday, will change again today. Plan is for daily dressing changes by cardiothoracic surgery with eventual wound VAC placement. Family updated daily by phone. Objective - Vital Signs Vital signs: Vital Signs Temp 99.3 F 08/30/20 04:00 Pulse 77 08/30/20 07:00 Resp 24 08/30/20 07:00 BP 112/48 08/30/20 07:00 Pulse Ox 97 08/30/20 07:00 Intake & Output 08/29/20 08/30/20 08/30/20 18:59 06:59 18:59 Intake Total 6025.681 3687.875 20 Output Total 2044 1785 75 Balance -944.804 -588.125 -55 Weight 90.5 kg Intake: IV 440 440 20 Clindamycin 900 mg In 100 Dextrose 5% in Water 50 ml @ 50 mls/hr IVPB Q8HR [facility] Rx#:[id number] Nafcillin 2 gm In 200 Dextrose 5% in Water 100 ml @ 50 mls/hr IVPB Q4HR [facility] Rx#:[id number] Sodium Chloride 0.9% 1, 240 240 20 000 ml @ 20 mls/hr IV . Q24H [facility] Rx#:[id number] ceFAZolin 2 gm In Sodium 100 Chloride 0.9% 50 ml @ 100 mls/hr IVPB Q8HR [facility] Rx# :[id number] Intake, IV Titration 294.196 390.875 Amount Nafcillin 2 gm In 100 Dextrose 5% in Water 100 ml @ 50 mls/hr IVPB Q4HR [facility] Rx#:[id number] Norepinephrine 4 mg In 101.517 115.395 Sodium Chloride 0.9% 250 ml @ 0.05 MCG/KG/MIN 14. 973 mls/hr IV .[id number] [facility] Rx#:[id number] propofoL 500 mg In Empty 92.679 275.48 Bag 1 bag @ Titrate IV . Q0M [facility] Rx#:[id number] Tube Feeding 276 276 Other 90 90 Output: Urine 2044 1784 75 Other: Voiding Method Indwelling Catheter Indwelling Catheter ABP, PAP, CO, CI - Last Documented Arterial Blood Pressure 153/92 - Constitutional Constitutional Comment(s): Sedated with propofol on mechanical ventilation - Respiratory Details: Lungs sounds diminished in the bases bilaterally. Respirations even, nonlabored on mechanical ventilation. Current vent settings FiO2 50%, tidal volume 450, respiratory rate 20, PEEP 8. ABGs this morning on those settings 7.55/35/72/30/96%/7.9. 7.5 ET tube present, 22 at the lip. - Cardiovascular Details: S1, S2 present. Regular rate and rhythm, sinus rhythm with heart rate in the 70s. Palpable peripheral pulses bilaterally. Generalized edema present. Heart hugger, antiembolism stockings, SCDs present. Right femoral triple-lumen central line present. - Gastrointestinal Gastrointestinal Comment(s): Abdomen soft, nontender, nondistended. Active bowel sounds present 4 quadra nts. OG tube present, tube feedings continue. Small soft brown stool per nursing - Genitourinary Genitourinary Comment(s): Yu present draining yellow urine, 150-250 mL/hr, 3630 mL in the last 24 hours. Right groin temporary dialysis catheter present - Integumentary Integumentary Comment(s): Anterior chest incision open, packed with sterile saline soaked kerlix and covered w/ ABD pad. Left lower extremity EVH site well approximated without redness or drainage, bruising present - Psychiatric Psychiatric Comment(s): Currently sedated with propofol on mechanical ventilation, could not assess - Allied health notes Allied health notes reviewed: nursing - Labs CBC & Chem 7: 08/30/20 03:56 08/30/20 03:56 Labs: Abnormal Lab Results - Last 24 Hours (Table) 08/28/20 08/29/20 08/29/20 Range/Units 04:45 12:04 17:19 WBC (3.8-10.6) k/uL RBC (3.80-5.40) m/uL Hgb (11.4-16.0) gm/dL Hct (34.0-46.0) % RDW (11.5-15.5) % Plt Count (150-450) k/uL Neutrophils # (1.3-7.7) k/uL ABG pH (7.35-7.45) ABG pO2 57 L* (83-108) mmHg ABG HCO3 (21-25) mmol/L ABG Total CO2 (19-24) mmol/L Potassium (3.5-5.1) mmol/L BUN (7-17) mg/dL Glucose (74-99) mg/dL POC Glucose (mg/dL) 129 H 128 H (75-99) mg/dL Calcium (8.4-10.2) mg/dL Total Bilirubin (0.2-1.3) mg/dL AST (14-36) U/L ALT (4-34) U/L Alkaline Phosphatase (38-126) U/L Total Protein (6.3-8.2) g/dL Albumin (3.5-5.0) g/dL 08/30/20 08/30/20 08/30/20 Range/Units 00:05 03:56 03:56 WBC 19.8 H (3.8-10.6) k/uL RBC 3.47 L (3.80-5.40) m/uL Hgb 10.2 L (11.4-16.0) gm/dL Hct 31.7 L (34.0-46.0) % RDW 16.2 H (11.5-15.5) % Plt Count 90 L (150-450) k/uL Neutrophils # 15.8 H (1.3-7.7) k/uL ABG pH (7.35-7.45) ABG pO2 (83-108) mmHg ABG HCO3 (21-25) mmol/L ABG Total CO2 (19-24) mmol/L Potassium 3.4 L (3.5-5.1) mmol/L BUN 43 H (7-17) mg/dL Glucose 121 H (74-99) mg/dL POC Glucose (mg/dL) 117 H (75-99) mg/dL Calcium 7.5 L (8.4-10.2) mg/dL Total Bilirubin 5.2 H (0.2-1.3) mg/dL AST 68 H (14-36) U/L ALT 77 H (4-34) U/L Alkaline Phosphatase 332 H (38-126) U/L Total Protein 5.6 L (6.3-8.2) g/dL Albumin 2.2 L (3.5-5.0) g/dL 08/30/20 08/30/20 Range/Units 05:15 06:00 WBC (3.8-10.6) k/uL RBC (3.80-5.40) m/uL Hgb (11.4-16.0) gm/dL Hct (34.0-46.0) % RDW (11.5-15.5) % Plt Count (150-450) k/uL Neutrophils # (1.3-7.7) k/uL ABG pH 7.55 H (7.35-7.45) ABG pO2 72 L (83-108) mmHg ABG HCO3 30 H (21-25) mmol/L ABG Total CO2 31 H (19-24) mmol/L Potassium (3.5-5.1) mmol/L BUN (7-17) mg/dL Glucose (74-99) mg/dL POC Glucose (mg/dL) 121 H (75-99) mg/dL Calcium (8.4-10.2) mg/dL Total Bilirubin (0.2-1.3) mg/dL AST (14-36) U/L ALT (4-34) U/L Alkaline Phosphatase (38-126) U/L Total Protein (6.3-8.2) g/dL Albumin (3.5-5.0) g/dL Microbiology - Last 24 Hours (Table) 08/28/20 12:04 Blood Culture Gram Stain - Preliminary Blood 08/28/20 12:19 Blood Culture Gram Stain - Preliminary Blood Blood Culture - Preliminary Presumptive Staph aureus 08/28/20 12:04 Blood Culture - Final Blood 08/28/20 11:00 Gram Stain - Preliminary Sputum Sputum Culture - Preliminary 08/28/20 12:19 Blood Culture - Final Blood 08/26/20 08:00 Gram Stain - Final Sputum Sputum Culture - Final Staphylococcus aureus - Imaging and Cardiology Chest x-ray: report reviewed, image reviewed Assessment and Plan Assessment: 1. Shortness of breath, acute diastolic heart failure, EF 55-60% on current TTE, bilateral pleural effusions 2. Lactic acidosis, septic shock, blood cultures positive for MSSA 3. Hypercapnic, hypoxic respiratory failure requiring BiPAP, with subsequent intubation and mechanical ventilation 4. Open sternal wound, surgically created, deep sternal wound infection with MSSA, S/P surgical exploration and debridement 5. Leukocytosis with bandemia 6. Acute kidney injury, metabolic acidosis 7. Acute hyperkalemia, resolved 8. Acute transaminitis secondary to hypoperfusion 9. History of hypertension, currently hypotensive requiring vasopressors 10. Acute anemia, post transfusion PRBCs, on 11. Coronary artery disease with left main stenosis status post 2 vessel CABG on 08/10/2020 with expected postoperative acute blood loss anemia, hypotension, and urinary retention as well as candidal stomatititus 12. Hyponatremia, resolved 13. Pulmonary fibrosis, asthma 14. Hyperlipidemia, treated 15. Previous tobacco dependence 16. Obesity 17. Paroxysmal afib w/ RVR, atrial flutter, currently sinus rhythm Plan: 1. Ventilator management per pulmonary medicine. Lighten sedation as much as possible to assess neuro status 2. Nephrology following, avoid nephrotoxins, HD/lasix per nephro 3. Infectious disease following, final blood cultures/sternal wound cultures positive for MSSA, continue antibiotics 4. Continue aspirin, statin, Plavix, beta sisi therapy. Avoid amio 2/2 transaminitis. Keep SBP 120-140 for perfusion of organs. Wean levo as tolerated 5. No anticoagulation 6. Will monitor daily labs and x-rays, ABGs. 7. Cardiothoracic surgery to change sternal dressing daily, RNs may reinforce but not to remove dressing, will eventually need wound vac 8. GI/DVT prophylaxis 9. Continue tube feeding for nutrition 10. Will update family daily 11. More recommendations to follow Time with Patient: Greater than 30
[2020-08-30] MEDS: IPRATROPIUM-ALBUTEROL 3 ML NEB INHALATION PRN ×4 (08:01→19:57)
[2020-08-30] MEDS: FUROSEMIDE 10 MG/ML 10 ML VIAL IV SCH ×2 (08:12→22:01)
[2020-08-30] MEDS: ASPIRIN 325 MG TAB PO SCH (08:13)
[2020-08-30] MEDS: MIDODRINE 5 MG TAB PO SCH ×3 (08:13→22:01)
[2020-08-30] MEDS: CLOPIDOGREL 75 MG TAB PO SCH (08:13)
[2020-08-30] MEDS: DRY MOUTH SPRAY 44.3 SPRAY/44.3 ML SPRAY MUCOUS MEM SCH ×4 (08:14→22:02)
[2020-08-30] MEDS: CHLORHEXIDINE GLUCONATE 15 ML CUP MUCOUS MEM SCH ×2 (08:14→22:01)
[2020-08-30] MEDS: PANTOPRAZOLE 40 MG/10 ML VIAL IVP SCH (08:14)
--- NOTE | 2020-08-30 08:53 | P.PN ---
Subjective Progress Note Date: 08/30/20 Acute hypoxic and hypercapnic respiratory failure secondary to sepsis and septic shock. This is a 75-year-old female with history of coronary artery disease, had recent left main stenosis and she underwent two-vessel CABG with HOLLAND to LAD, and saphenous vein graft to obtuse marginal on 08/10/2020. Patient was seen by us postoperatively on consultation, and she was eventually discharged. Her other medical problems include history of hyponatremia, pulmonary fibrosis, hyperten judy, dyslipidemia, [id number] smoking history, cervical stenosis and previous surgical disc disease, history of decompression and fusion. Patient was brought into the ER on 08/22/2020, and she was complaining of shortness of breath, patient was hypoxic and she was noted to have O2 saturation in the 80s. Chest x-ray showed evidence of pulmonary edema with bilateral pleural effusions, and patient was treated mostly with diuretics. However over the last 2 days, patient deteriorated, shortness of breath became worse, and today the patient was extremely dyspneic, chest x-ray was getting worse, patient was hypotensive, required fluid boluses, and I was notified about this patient early this m jaelyn, advised immediate transfer to the ICU, patient was placed on BiPAP, patient was also seen by nephrology, and her urine output is extremely poor, patient received fluid boluses for hypotension, in the meantime the patient was noted to have significant purulent drainage from her sternal incision site, and she clearly has wound dehiscence and sternal wound infection. Recommended broad-spectrum antibiotics on this patient, started on vancomycin and cefepime, patient was seen by infectious disease on consultation, she was also seen by nephrology planning hemodialysis, and vascular surgery saw the patient and placed a dialysis catheter. In the meantime patient was placed on BiPAP, she re ceived fluids and pressors. I placed a central line in this patient an arterial line. Chest x-ray clearly shows evidence of bilateral interstitial edema. Patient was reevaluated today on 08/25/2020, remains in the ICU, she was on BiPAP earlier today, presently on high flow nasal cannula at 15 L/m. Yesterday she was on BiPAP 12/6 and 60% FiO2 this was overnight. Patient is off pressors, and this morning I stopped her sodium bicarb based on her ABG and based on her bicarb level as well as her electrolytes. Patient is getting hemodialysis again today, she had 2.2 L removed yesterday, and she would likely have the same this morning. Patient is awake, and bit dyspneic, anxious, agitated, chest x-ray continues to show evidence of pulmonary edema. Her sternal wound dehiscence seems to be significant, continues to have some purulent drainage, and that is being addressed by thoracic surgery on the case. Cultures from the sternal wound came back positive for gram-positive cocci in clusters, seen by infectious disease and she was transitioned to daptomycin instead of vancomycin. Hemogl obin is noted to be a bit low today, and I have ordered 1 unit of packed RBCs to be given. IV fluid is at 1 50 mL/h. Sodium bicarb is discontinued. Calcium gluconate was given for low calcium today. ABG showed a pO2 of 74 pCO2 of 40 pH of 7.47 and this was on a 15 L high flow nasal cannula. Hemoglobin is 6.5, and she will receive a unit of packed RBCs today. Electrolytes are normal BUN is 43 creatinine 2.79 Patient was reevaluated today on 08/26/2020, her clinical status deteriorated yesterday, patient was getting extremely agitated, restless, tachypneic tachycardic, she had a relatively normal ABG but based on her clinical picture, I recommended intubation and mechanical ventilation. She is now ventilated on assist control rate of 20 tablets volume is 450 FiO2 is 50% and PEEP is at 5. ABG showed a pO2 of 87 pCO2 of 39 pH of 7.43. She is on multiple drips including IV fluid/0.9 normal saline at 50 mL per hour. Norepinephrine at 0.15 mcg/kg/m, propofol at 50 mcg/kg/m. Patient is being dialyzed and she is presently undergoing dialysis. Yesterday she had about 2 L off with dialysis. Patient is intermittently in A. fib with RVR. Presently in sinus rhythm. Her hemoglobin was noted to be low, received a total of 3 units of packed RBCs since yesterday. Hemoglobin today is 10.8. Patient was seen by infectious disease on consultation, and she was placed on cefepime and daptomycin replacing vancomycin, this is mostly for her presentation of sepsis and septic shock with sternal wound infection. The sternal wound is being addressed and cleaned by thoracic surgery on the case, patient may require surgical intervention may also require wound VAC. Blood cultures from 08/25 are positive for presumptive staph aureus. Wound cultures from the sternal wound, methicillin sensitive staph aureus. Urine cultures are negative so far. Yearly the patient started out of the sternal wound infection with MSSA, went on to develop sepsis, septic shock, and MSSA bacteremia. Hence we'll hold on any PICC line placement at this point, and we'll continue to use the central line Patient was reevaluated today on 08/27/2020, remains in the ICU, intubated and mechanically ventilated. Being treated for septic shock and bacteremia. Cultures have been positive for MSSA. Patient is on assist control rate of 20, volume 450 FiO2 50% PEEP of 5. ABG showed a pO2 of 71 pCO2 of 33 pH of 7.49. Patient is requiring norepinephrine at 0.12 mcg/kg/m, she is also on propofol at 50 mcg/kg/m, IV fluid at KVO. Net fluid balance is -1.4 L over the last 24 hours. Chest x-ray continues to show some evidence of interstitial edema and possibly a small left-sided pleural effusion. Patient has been receiving hemodialysis and ultrafiltration for the last 3 days, and over 6 L of fluid had been removed in the last 3 days. Today the patient has good urine output, renal functioning is improving, no dialysis is planned today, the patient was given Lasix by nephrology. Her urine output is about 50-60 mL per hour. And she was given 80 mg of Lasix daily as recommended by nephrology. Her sternal wound is being addressed by thoracic surgery today, and she may undergo surgery sometime later today. Labs today showed evidence of leukocytosis with WBC of 28.1 hemoglobin is 11.3. Liver enzymes remain elevated. And her BUN is down to 38 creatinine is 1. Reevaluated today on 08/28/2020, patient remains in the ICU, intubated and mechanically ventilated. Her assist-control rate is 20, volume is 450 FiO2 is 50% PEEP was at 5 and I increased it up to 8. ABG showed a pO2 of 57 pCO2 of 30 pH of 7.53. O2 saturation on the monitor is 96%. Patient remains on norepinephrine at 0.07 mcg/kg/m, she is also on propofol at 65 mcg/kg/m. Patient is on enteral feeding. Remains on cefepime and daptomycin for her positive blood cultures/MSSA. Patient is also on Lasix at 80 mg IV push every 24 hours. Her urine output has been good. And her chest x-ray continues to show mild congestive heart failure changes. Patient has leukocytosis with WBC count 24.3, electrolytes are normal BUN is 46 creatinine 0.90. Liver enzymes are trending down slowly Patient was reevaluated today on 08/29/2020, remains intubated and mechanically ventilated. She is on assist control rate of 20 tidal volume is 450 FiO2 is 50% and PEEP of 8. ABG showed a pO2 of 56 pCO2 of 35 pH of 7.50 however her O2 sa turation on the monitor is 99%. Patient remains on norepinephrine at 0.05 mcg/kg/m, he is on propofol at 70 mcg/kg/m, she is on Lasix 80 mg IV push daily, with good urine output. IV fluid mostly at KVO. Antibiotics garzon she is on cefazolin and clindamycin. Patient had MSSA in the blood and in the sternal wound. Chest x-ray continues to show evidence of pulmonary edema, and now she seems to be developing some consolidation in the right upper lobe medially. Her sternum remains open, decision regarding sternal closure will be made in the next 24-48 hours by thoracic surgery. Patient continues to have leukocytosis with WBC count of 24.2 hemoglobin is 10.6, basic metabolic profile is normal renal profile is normal not requiring any further dialysis, and she has good urine output responding well to diuretics. Liver enzymes seem to be trending down 08/30/2020 the patient remains intubated on a mechanical ventilator. This morning, she has an assist-control at the rate of 20 with tidal volume of 450 and the flow of 70 with a FiO2 of 50% with a PEEP of 8. The morning blood gases from today showed a pH of 7.55, and the pCO2 is a 35 with a pO2 of 72. Necessity ventilator changes were done. Peak airway pressure was 37. Static pressure was 32. Chest x-ray still showing diffuse bilateral pulmonary infiltrates consistent with pneumonia although possibility of an acute lung inju ry/ARDS cannot be completely excluded. ET tube is in a good location. The patient this morning is sedated with propofol which is running at 50 mcg/kg per minute. Sedation holiday was given this morning to evaluate her mental status. I was told yesterday that the patient did have some diminished level of consciousness once she was off the sedation. Nevertheless she was placed on sedation again to maintain synchrony with the mechanical ventilator. She is septic with staff aureus, MSSA has been cultured in her sputum, and her blood and in her sternal wound. Her current antibiotic coverage including a combination of nafcillin and clindamycin. She is afebrile. Sternal wound is being monitored by the cardiothoracic surgery team. Daily dressing changes are being done. There is still output which is purulent according to the nursing staff. Pressors and the patient is currently on norepinephrine running at 0.04 mcg/kg per minute. Renal function is improving and the creatinine is down to 0.78. The white cell count is at 19.8 with hemoglobin of 10.2 and a platelet count of 90. Liver function tests continue to improve with an AST of 68, ALT of 77 and the last blood culture was taken from 08/29/2020 was again positive for gram-positive bacteria most likely MSSA. The patient has orogastric tube in place and she is receiving vital high protein at a rate of 23 mL an hour. This is at goal for now. No abdominal distention. No increased residuals for now. She is afebrile. Objective - Vital Signs Vital signs: Vital Signs Temp 99.3 F 08/30/20 04:00 Pulse 81 08/30/20 08:15 Resp 24 08/30/20 07:00 BP 112/48 08/30/20 07:00 Pulse Ox 97 08/30/20 07:00 Intake & Output 08/29/20 08/30/20 08/30/20 18:59 06:59 18:59 Intake Total 2593.116 4251.875 90 Output Total 2045 1785 155 Balance -944.804 -588.125 -65 Weight 90.5 kg Intake: IV 440 440 40 Clindamycin 900 mg In 100 Dextrose 5% in Water 50 ml @ 50 mls/hr IVPB Q8HR [facility] Rx#:[id number] Nafcillin 2 gm In 200 Dextrose 5% in Water 100 ml @ 50 mls/hr IVPB Q4HR [facility] Rx#:[id number] Sodium Chloride 0.9% 1, 240 240 40 000 ml @ 20 mls/hr IV . Q24H [facility] Rx#:[id number] ceFAZolin 2 gm In Sodium 100 Chloride 0.9% 50 ml @ 100 mls/hr IVPB Q8HR [facility] Rx# :[id number] Intake, IV Titration 294.196 390.875 50 Amount Nafcillin 2 gm In 100 Dextrose 5% in Water 100 ml @ 50 mls/hr IVPB Q4HR [facility] Rx#:[id number] Norepinephrine 4 mg In 101.517 115.395 Sodium Chloride 0.9% 250 ml @ 0.05 MCG/KG/MIN 14. 973 mls/hr IV .[id number] [facility] Rx#:[id number] propofoL 500 mg In Empty 92.679 275.48 50 Bag 1 bag @ Titrate IV . Q0M [facility] Rx#:[id number] Tube Feeding 276 276 Other 90 90 Output: Urine 2045 1785 155 Other: Voiding Method Indwelling Catheter Indwelling Catheter ABP, PAP, CO, CI - Last Documented Arterial Blood Pressure 153/92 - Exam PHYSICAL EXAMINATION: Revealed a 75-year-old female, obese, intubated, ventilated, sedated. On propofol. This was placed on hold shortly after evaluated the patient to assess her mental status. HEENT:, PERRLA, EOMI, nonicteric.Moist mucous membranes endotracheal tube and orogastric tubes are intact. CHEST EXAMINATION: Symmetrical chest expansion, crackles or rhonchi and wheezes noted bilaterally. Patient has sterile dressing over the sternal wound, supposedly is open and to be kept open as per thoracic surgery. HEART EXAMINATION Tachycardic, normal S1 and S2, 2/6 systolic murmur throughout the precordium. ABDOMEN: obese, Soft, nontender. Bowel sounds are heard. No organomegaly noted. EXTREMITIES:1+ peripheral pulses with evidence of mild peripheral edema and no calf tenderness noted. NEUROLOGIC EXAMINATION Sedated on propofol, could not assess. Psychiatric Sedated on propofol, could not assess. Skin: Patient has a sternal wound and appropriate dressing is applied and the wound is to be changed later the cardiothoracic team. - Labs CBC & Chem 7: 08/30/20 03:56 08/30/20 03:56 Labs: Abnormal Lab Results - Last 24 Hours (Table) 08/28/20 08/29/20 08/29/20 Range/Units 04:45 12:04 17:19 WBC (3.8-10.6) k/uL RBC (3.80-5.40) m/uL Hgb (11.4-16.0) gm/dL Hct (34.0-46.0) % RDW (11.5-15.5) % Plt Count (150-450) k/uL Neutrophils # (1.3-7.7) k/uL ABG pH (7.35-7.45) ABG pO2 57 L* (83-108) mmHg ABG HCO3 (21-25) mmol/L ABG Total CO2 (19-24) mmol/L Potassium (3.5-5.1) mmol/L BUN (7-17) mg/dL Glucose (74-99) mg/dL POC Glucose (mg/dL) 129 H 128 H (75-99) mg/dL Calcium (8.4-10.2) mg/dL Total Bilirubin (0.2-1.3) mg/dL AST (14-36) U/L ALT (4-34) U/L Alkaline Phosphatase (38-126) U/L Total Protein (6.3-8.2) g/dL Albumin (3.5-5.0) g/dL 08/30/20 08/30/20 08/30/20 Range/Units 00:05 03:56 03:56 WBC 19.8 H (3.8-10.6) k/uL RBC 3.47 L (3.80-5.40) m/uL Hgb 10.2 L (11.4-16.0) gm/dL Hct 31.7 L (34.0-46.0) % RDW 16.2 H (11.5-15.5) % Plt Count 90 L (150-450) k/uL Neutrophils # 15.8 H (1.3-7.7) k/uL ABG pH (7.35-7.45) ABG pO2 (83-108) mmHg ABG HCO3 (21-25) mmol/L ABG Total CO2 (19-24) mmol/L Potassium 3.4 L (3.5-5.1) mmol/L BUN 43 H (7-17) mg/dL Glucose 121 H (74-99) mg/dL POC Glucose (mg/dL) 117 H (75-99) mg/dL Calcium 7.5 L (8.4-10.2) mg/dL Total Bilirubin 5.2 H (0.2-1.3) mg/dL AST 68 H (14-36) U/L ALT 77 H (4-34) U/L Alkaline Phosphatase 332 H (38-126) U/L Total Protein 5.6 L (6.3-8.2) g/dL Albumin 2.2 L (3.5-5.0) g/dL 08/30/20 08/30/20 Range/Units 05:15 06:00 WBC (3.8-10.6) k/uL RBC (3.80-5.40) m/uL Hgb (11.4-16.0) gm/dL Hct (34.0-46.0) % RDW (11.5-15.5) % Plt Count (150-450) k/uL Neutrophils # (1.3-7.7) k/uL ABG pH 7.55 H (7.35-7.45) ABG pO2 72 L (83-108) mmHg ABG HCO3 30 H (21-25) mmol/L ABG Total CO2 31 H (19-24) mmol/L Potassium (3.5-5.1) mmol/L BUN (7-17) mg/dL Glucose (74-99) mg/dL POC Glucose (mg/dL) 121 H (75-99) mg/dL Calcium (8.4-10.2) mg/dL Total Bilirubin (0.2-1.3) mg/dL AST (14-36) U/L ALT (4-34) U/L Alkaline Phosphatase (38-126) U/L Total Protein (6.3-8.2) g/dL Albumin (3.5-5.0) g/dL Microbiology - Last 24 Hours (Table) 08/29/20 05:20 Blood Culture Gram Stain - Preliminary Blood 08/29/20 05:20 Blood Culture - Final Blood 08/28/20 12:04 Blood Culture Gram Stain - Preliminary Blood 08/28/20 12:19 Blood Culture Gram Stain - Preliminary Blood Blood Culture - Preliminary Presumptive Staph aureus 08/28/20 12:04 Blood Culture - Final Blood 08/28/20 11:00 Gram Stain - Preliminary Sputum Sputum Culture - Preliminary 08/28/20 12:19 Blood Culture - Final Blood 08/26/20 08:00 Gram Stain - Final Sputum Sputum Culture - Final Staphylococcus aureus Assessment and Plan Plan: 1 Acute hypoxic and hypercapnic respiratory failure, secondary to an incisional wound infection with staph aureus/MSSA and addition to pneumonia and development of bilateral pleural effusion. The patient because surgical debridement wounds. The patient has required intubation and mechanical ventilation on 08/25/2020. Worn-out, the patient remains intubated on mechanical ventilator. She is still septic with a possible culture from 08/29/2020. The patient is currently on a combination of nafcillin and clindamycin the patient is requiring low-dose pressors for hemodynamic support. 2 Sepsis from sternal wound infection post debridement, the patient is bacteremic with MSSA and the patient is currently on a combination of nafcillin and clindamycin 3 Septic shock, primary source is sternal wound infection. This is secondary to MSSA. Patient is receiving clindamycin and cefazolin 4 MSSA sepsis with septic shock. 5 leukocytosis secondary to above, with secondary is improving and the white cell count is down to 19 6 Acute kidney injury required brief period of hemodialysis, presently off hemodialysis. Renal function is normalized and the patient still has a dialysis catheter in the left femoral artery 7 Acute metabolic acidosis secondary to acute kidney injury and sepsis, resolved infected patient is currently alkalotic with a pH of 7.55 8 Acute transaminitis secondary to hypoperfusion. The liver function tests are stable for now 9 Acute diastolic congestive heart failure with bilateral pleural effusions 10 History of hypertension 11 History of cervical stenosis 12 Previous tobacco dependence. 13 History of mild interstitial lung disease/pulmonary fibrosis 14 Status post sternal exploration with sternal debridement on 08/27/[address] Olivera. Sternum remains open at this point. Recommendation: Continue ventilatory support. We'll try to grab the tidal volume to 400, the FiO2 down to 40% and drop the flow down to 60. If the pulse ox maintained at 98%, will drop the PEEP down to 6. The chest x-ray from today still showing diffuse bilateral pulmonary infiltrates consistent with pneumonia/ARDS. Continue hemodynamic support. Continue norepinephrine. Titrate accordingly. Continue nutritional support. Enteral feeding. Continue GI and DVT prophylaxis. Function is normalized and the femoral catheter will be taken out today. Continue Lasix at a dose of 80 mg IV push every 12 hours and the patient is producing adequate amount of urine output for now. Continue sedation while on mechanical ventilation. But daily interruption of sedation will be recommended and assessment of mental status. No plans for any weaning today. The patient is not ready for any wean as the pa tient is still septic and bacteremic at this point in time. Continue antibiotics in the form of nafcillin and clindamycin Enteral feeding for nutritional support with vital high protein Critical care time is over 30 minutes Time with Patient: Greater than 30
[2020-08-30] MEDS: fentaNYL (PF) 50 MCG/ML 2 ML AMP IVP PRN (09:46)
--- NOTE | 2020-08-30 10:12 | P.PCN ---
Description of Procedure: Diagnoses is acute chronic renal failure Procedure removal of the dialysis catheter left femoral approach left groin was prepped and draped pressure manner stitches were removed from the dialysis catheter catheter was removed pressure held patient are to the procedure well
--- NOTE | 2020-08-30 10:32 | P.PCN ---
Date of Procedure: 08/29/20 Preoperative Diagnosis: Open sternal wound Postoperative Diagnosis: Same Procedure(s) Performed: Dressing change Description of Procedure: Open sternal wound was addressed in the ICU. The old dressing was removed. There was some purulent drainage noted. There was some necrotic fat along the edges of the wound. Otherwise the wound was fairly clean and granulating. The wound was irrigated out with warm saline. The wound was then packed with a single Kerlix soaked in saline. Dry sterile dressing was applied over this.
--- NOTE | 2020-08-30 10:34 | P.PCN ---
Date of Procedure: 08/30/20 Preoperative Diagnosis: Open sternal wound Postoperative Diagnosis: Same Procedure(s) Performed: Wound debridement and dressing change Estimated Blood Loss (ml): 1 Description of Procedure: This open sternal wound was addressed at the bedside in the ICU. The old dressing was removed. There was quite a bit of purulent drainage noted. There was some necrotic fat along the tissue edges. The wound was irrigated out with warm saline. Necrotic fat was debrided back sharply with scissors and pickups. There was minimal bleeding. The wound was again irrigated with warm saline. We then packed the wound with a single Kerlix roll soaked in warm saline. Dry sterile dressing was applied.
[2020-08-30 11:38] LABS: Glucose,Whole Blood 126 mg/dL (75-99)
[2020-08-30] MEDS: ASCORBIC ACID 500 MG TAB PO SCH (11:41)
[2020-08-30] MEDS: FERROUS SULFATE ORAL ELIXIR 300 MG/5 ML CUP PO SCH (11:42)
--- NOTE | 2020-08-30 11:53 | P.PN ---
Subjective Progress Note Date: 08/30/20 Principal diagnosis: Septic shock from infected sternal wound with dehiscence, CAD post CABG, respiratory failure on mechanical ventilation, hyperglycemia This is a 75-year-old female patient of Dr. Rich Avila, Dr. Sloan and Dr. Guadalupe. She has a past medical history significant for hypertension, hyperlipidemia, pulmonary fibrosis, asthma, obesity, remote history of tobacco dependence with smoking 32 years ago, osteoarthritis, cervical stenosis post anterior cervical decompression, discectomy and fusion, TIA as a child at age 11 and family history of premature coronary artery disease with her father being diagnosed in his early 50s. Recently, the patient has been experiencing episodes of shortness of breath over the past 6 months with just minimal activity. She also complained of some lower extremity swelling which did resolve with some diuresis. she underwent a stress test which showed anterior wall ischemia with small reversible defect. a 2-D echocardiogram which showed mild aortic valve insufficiency, mild mitral valve regurgitation, mild tricuspid valve regurgitation and left ventricular function to be normal with an ejection fraction of 55%. Subsequently she underwent an elective heart catheterization on 07/27/2020 which demonstrated a left main stenosis with QING with a calculation of 2.6 mm, a 40% stenosis to her mid left anterior descending coronary artery and a 30% stenosis to her right coronary artery. Due to the patient's symptoms and findings on her heart catheterization of left main stenosis a consult was placed to Dr. Sethi from cardiothoracic surgery for further evaluation and treatment recommendations. During her preoperative workup her serum sodium level was found to be 120 and was admitted prior to surgery for treatment of hyponatremia. Last admission On 08/06/2020-08/19/20 the patient was admitted to the hospital for treatment of her hyponatremia, and once her hyponatremia was resolved on 08/10/2020, asubsequently taken to the operating room where Dr. Sethi performed a double vessel coronary artery bypass grafting surgery using the left internal mammary artery to left anterior setting coronary artery, a reverse greater saphenous vein graft from the aorta to the first obtuse marginal coronary arter y, endoscopic harvesting of the left greater saphenous vein from the groin Upon completion of the surgery the patient was transferred to the intensive care unit where she was recovered, monitored hemodynamically and where she progressed cardiac rehabilitation phase Her oxygen was titrated down, she continued to work with physical/occupational therapy and cardiac rehabilitation, she was tolerating an oral diet, her pain was well controlled without narcotics and she was ready to be discharged home with [facility] care on postoperative day #9. Did not require home O2 on last admission however she required new medication changes including diuretics during that last admission. Patient comes in in worsening shortness of breath anasarca, no chest pain, has BARKER, edma without leg pain new medications from last visit was compliant, requiring lipitor 75bid, tolvaptan. meotprolol 75 bid plavix, lasix 40 mg daily losartain 25 asa 325, ferrous sulfate and fluconazole. patient comes in now for CHF, anarsarc ely pleural effusion, consult with dr Sethi. and cardiology, if okay will be cardiothoracic surgeon can also perform the thoracentesis, however with hypoxemia, also have requested Dr. Gamboa's services. Patient has a hemoglobin of 7.0 on and 3, platelet count of 305, hemoglobin right to admission was 8.0 denies any Hemoccult stools, creatinine was 1.60 from a previous of 0.9 blood pressure is in the low 90s systolic, pulse ox, 90 on 4 L nasal cannula, patient was not discharged with home O2 during her last admission 08/24: A-Team was called for mental status changes. Patient was found to have a blood pressure 99/65, heart rate of 85 and pulse ox of 96% on a nonrebreather with respiratory rate of 32. Patient was transferred to the ICU. She was started on vancomycin and cefepime. Patient has been seen by cardiology with plan to continue vasopressor support, patient may need pleurocentesis. Stat echocardiogram was done to rule out pericardial effusion or tamponade. Patient has been seen by nephrology for acute kidney injury secondary to ATN secondary to hypotension and cardiorenal syndrome. Patient is currently on bicarb drip, status post Lasix 80 mg IV once. Renal replacement therapy to be initiated immediately. Vascular consult in place for a dialysis catheter placement and start hemodialysis today with second treatment tomorrow. Sternal wound was producing thick yellowish brown fluid, was opened approximately 2 cm and deep culture was taken, packed and covered with 4 x 4 dressing. She is requiring vasopressors. She is hypothermic and warming blanket is in place.Patient had minimal output yesterday and none today. She is status post 2.5 L of fluids. 2/16 patient was examined in the ICU. She was able to maintain oxygenation on BiPAP overnight switch to high flow 15 m this morning. Patient did have episodes of agitation last night and was started on Seroquel. She did receive a dose of Seroquel prior to admission and was found to be resting comfortably. Patient is off pressors and bicarbonate drip and metabolic acidosis seemed to have cleared off. On evaluation of patient's lab, WBC is 14.3, hemoglobin 6.5 platelet 208 ABG this morning has a pH of 7.47 CO2 74. Bicarb 29. Sodium has improved to 126 chloride 96 BUN 43 creatinine 2.79 lactic acid has improved to 2.9 calcium 7 liver enzymes elevated AST at 2874 ALT 1469 alkaline phosphatase 192 CRP 356 BNP 13,000 UA does suggest some infection with WBC of 88 hyaline casts 33 protein 2+ urine blood trace nitrite negative leukocyte Estrace negative. Wound cultures positive for presumptive staph aureus. Patient's blood culture from yesterday are positive with presumptive staph aureus. Repeat blood cultures ordered. Patient received 1 unit of PRBCs for low hemoglobin. Urine output has improved to 20-40 mL's per hour. Patient did receive a dose of DDAVP for hyponatremia. Normal saline is running at 50 mL per hour. Did receive hemodialysis today with 2 L ultrafiltration. Patient was also noted to be in A. fib with RVR intermittently and her dose of Lopressor was increased to 25 mg every 8 hours. Continue daptomycin and cefepime for antibiotic coverage. Monitor patient's for QTC prolongation well on Seroquel. Patient has significant dehiscence of wound and may need I&D 08/27 she remains in the ICU, intubated and mechanically ventilated. Patient is going to the OR for debridement today. Patient remains intubated on 50% FiO2 and PEEP of 5, assist control rate of 20volume 450. Continues to require Levophed at 11mcg/ hr . Blood clots and culture positive for MSSA. Urine output is 50-60 mL per hour. Patient continues to be on sedation from propofol at 50 max per KG permanent. IV fluids at KVO. Patient continues to have good urine output after a dose of 80 mg of IV Lasix today. Vision tolerated 2.5 L ultrafiltration yesterday and is started on hemodialysis on August 24. No holiday sedation today. Plan to continue Lasix 80 IV once daily and holding hemodialysis. Anticoagulation held for debridement. 08/28 patient remains in the ICU. Did have sternal Exploration and debridement yesterday remains sedated on propofol. Patient continues to have high temp of 101.6, to 233 tachycardic 111 blood pressure 106/51 oxygen saturation 95% on 50% FiO2. Labs suggest a leukocytosis of 24.3 hemoglobin stable at 10.7 platelet count has dipped dropped to 78, he really suggest a pH of 7.53 pCO2 30 PaO2 57, chloride of 110 potassium 3.5 and anion gap of 6 BUN 46 creatinine 0.9 calcium 7.8 ALT 3:15 alkaline phosphatase 312 AST 112 blood cultures from 08/26 positive for staph aureus. Urine output 1.2 L in 24 hours Repeat blood cultures sent today. Patient continues to be normal sinus rhythm not currently on any anticoagulation at the possibility of going for another debridement. Patient's continues to be on levo fed and still stays intubated. Continue IV Lasix. Patient initiated on IV Lasix 08/29: Patient remain in the ICU, remain on mechanical ventilation, sternal exploration and debridement was done and still have packing area within open wound at this point. Oxygenation is better patient is not 3 to be off vent at this point. Her urine output has been good and hemodynamically stable. 08/30: Patient still on mechanical ventilation, his sternum 1 and was changed today still have significant amount of infection and pus was packed still open. Patient remain on nafcillin and Moni mycin. Still having positive blood culture. Objective - Vital Signs Vital signs: Vital Signs Temp 99.3 F 08/30/20 04:00 Pulse 84 08/30/20 11:00 Resp 29 H 08/30/20 11:00 BP 104/54 08/30/20 11:00 Pulse Ox 96 08/30/20 11:00 Intake & Output 08/29/20 08/30/20 08/30/20 18:59 06:59 18:59 Intake Total 9350.529 5767.875 536.644 Output Total 2045 1785 1000 Balance -944.804 -588.125 -463.356 Weight 90.5 kg Intake: IV 440 440 250 Clindamycin 900 mg In 100 50 Dextrose 5% in Water 50 ml @ 50 mls/hr IVPB Q8HR [facility] Rx#:[id number] Nafcillin 2 gm In 200 100 Dextrose 5% in Water 100 ml @ 50 mls/hr IVPB Q4HR [facility] Rx#:[id number] Sodium Chloride 0.9% 1, 240 240 100 000 ml @ 20 mls/hr IV . Q24H [facility] Rx#:[id number] ceFAZolin 2 gm In Sodium 100 Chloride 0.9% 50 ml @ 100 mls/hr IVPB Q8HR [facility] Rx# :[id number] Intake, IV Titration 294.196 390.875 164.644 Amount Nafcillin 2 gm In 100 Dextrose 5% in Water 100 ml @ 50 mls/hr IVPB Q4HR [facility] Rx#:[id number] Norepinephrine 4 mg In 101.517 115.395 58.897 Sodium Chloride 0.9% 250 ml @ 0.05 MCG/KG/MIN 14. 973 mls/hr IV .[id number] [facility] Rx#:[id number] propofoL 500 mg In Empty 92.679 275.48 105.747 Bag 1 bag @ Titrate IV . Q0M [facility] Rx#:[id number] Tube Feeding 276 276 92 Other 90 90 30 Output: Urine 2045 1785 1000 Other: Voiding Method Indwelling Catheter Indwelling Catheter Indwelling Catheter ABP, PAP, CO, CI - Last Documented Arterial Blood Pressure 153/92 - Labs CBC & Chem 7: 08/30/20 03:56 08/30/20 03:56 Labs: Abnormal Lab Results - Last 24 Hours (Table) 08/28/20 08/29/20 08/29/20 Range/Units 04:45 12:04 17:19 WBC (3.8-10.6) k/uL RBC (3.80-5.40) m/uL Hgb (11.4-16.0) gm/dL Hct (34.0-46.0) % RDW (11.5-15.5) % Plt Count (150-450) k/uL Neutrophils # (1.3-7.7) k/uL ABG pH (7.35-7.45) ABG pO2 57 L* (83-108) mmHg ABG HCO3 (21-25) mmol/L ABG Total CO2 (19-24) mmol/L Potassium (3.5-5.1) mmol/L BUN (7-17) mg/dL Glucose (74-99) mg/dL POC Glucose (mg/dL) 129 H 128 H (75-99) mg/dL Calcium (8.4-10.2) mg/dL Total Bilirubin (0.2-1.3) mg/dL AST (14-36) U/L ALT (4-34) U/L Alkaline Phosphatase (38-126) U/L Total Protein (6.3-8.2) g/dL Albumin (3.5-5.0) g/dL 08/30/20 08/30/20 08/30/20 Range/Units 00:05 03:56 03:56 WBC 19.8 H (3.8-10.6) k/uL RBC 3.47 L (3.80-5.40) m/uL Hgb 10.2 L (11.4-16.0) gm/dL Hct 31.7 L (34.0-46.0) % RDW 16.2 H (11.5-15.5) % Plt Count 90 L (150-450) k/uL Neutrophils # 15.8 H (1.3-7.7) k/uL ABG pH (7.35-7.45) ABG pO2 (83-108) mmHg ABG HCO3 (21-25) mmol/L ABG Total CO2 (19-24) mmol/L Potassium 3.4 L (3.5-5.1) mmol/L BUN 43 H (7-17) mg/dL Glucose 121 H (74-99) mg/dL POC Glucose (mg/dL) 117 H (75-99) mg/dL Calcium 7.5 L (8.4-10.2) mg/dL Total Bilirubin 5.2 H (0.2-1.3) mg/dL AST 68 H (14-36) U/L ALT 77 H (4-34) U/L Alkaline Phosphatase 332 H (38-126) U/L Total Protein 5.6 L (6.3-8.2) g/dL Albumin 2.2 L (3.5-5.0) g/dL 08/30/20 08/30/20 08/30/20 Range/Units 05:15 06:00 11:36 WBC (3.8-10.6) k/uL RBC (3.80-5.40) m/uL Hgb (11.4-16.0) gm/dL Hct (34.0-46.0) % RDW (11.5-15.5) % Plt Count (150-450) k/uL Neutrophils # (1.3-7.7) k/uL ABG pH 7.55 H (7.35-7.45) ABG pO2 72 L (83-108) mmHg ABG HCO3 30 H (21-25) mmol/L ABG Total CO2 31 H (19-24) mmol/L Potassium (3.5-5.1) mmol/L BUN (7-17) mg/dL Glucose (74-99) mg/dL POC Glucose (mg/dL) 121 H 126 H (75-99) mg/dL Calcium (8.4-10.2) mg/dL Total Bilirubin (0.2-1.3) mg/dL AST (14-36) U/L ALT (4-34) U/L Alkaline Phosphatase (38-126) U/L Total Protein (6.3-8.2) g/dL Albumin (3.5-5.0) g/dL Microbiology - Last 24 Hours (Table) 08/28/20 11:00 Gram Stain - Final Sputum Sputum Culture - Final 08/29/20 05:20 Blood Culture Gram Stain - Preliminary Blood 08/29/20 05:20 Blood Culture - Final Blood 08/28/20 12:04 Blood Culture Gram Stain - Preliminary Blood 08/28/20 12:19 Blood Culture Gram Stain - Preliminary Blood Blood Culture - Preliminary Presumptive Staph aureus 08/28/20 12:04 Blood Culture - Final Blood 08/28/20 12:19 Blood Culture - Final Blood 08/26/20 08:00 Gram Stain - Final Sputum Sputum Culture - Final Staphylococcus aureus Assessment and Plan Assessment: 1. Sepsis with septic shock with multiorgan failure with metabolic encephalopathy, acute kidney injury, acute heart failure, acute respiratory failure. Status post sternal exploration and debridement on 08/27 Patient on nafcillin and clindamycin. culture positive for MSSA. Culture still positive currently, sternal debridement and packing was done today again. 2. Acute hypoxemic respiratory failure with pulmonary edema and pleural effusions secondary to CHF, patient is remain on mechanical ventilation not we Sheriff so far if remain on the vent for another week might require trach. 3. Acute kidney injury secondary to ATN secondary to hypotension and cardiorenal syndrome. on hemodialysis , no treatment todya 4. Hyperkalemia secondary to potassium supplementation, losartan and acute kidney injury as well as severe acidosis. Consult with nephrology appreciated. Continue medical management. 5. Hyperglycemia: Continue to watch blood sugar on Accu-Chek sliding scales coverage only. 6. Metabolic encephalopathy secondary to sepsis, acute kidney injury, patient is sedated currently on mechanical ventilation. 7. Acute diastolic heart failure, EF 55%, mild AI and mild MR and mild TR, also complicated by severe protein calorie malnutrition. 8. Open sternal wound: Post debridement, still seen infectious disease and critical care, continue IV antibiotic continue wound care. Still treated for MSSA on nafcillin and clindamycin. 9. Anemia of chronic blood loss from recent surgery. Continue monitor closely and transfuse if hemoglobin 7 or below. On iron supplementations status post 1 unit PRBC on 06/24 10. Hypervolemic Hyponatremia. Status post DDAVP and dialysis s/p 2.5 L ultrafiltration on 08/26 11. CAD, with prior CABG performed on 08/10/2020, two-vessel, involving HOLLAND to LAD, and reverse greater saphenous vein to obtuse marginal coronary artery. held aspirin 325 mg daily, continue Plavix 75 mg daily, Toprol all 75 mg twice a day, 12. Moderate protein calorie malnutrition, with anasarca and hypotension. 13. History of pulmonary fibrosis. Continue duo nebs and albuterol 14. Asthma, mild intermittent. Continue ipratropium albuterol nebulizers 15. Hyperlipidemia. Continue statin daily 16. Hypertension. Currently hypotensive 17. GI prophylaxis. Pantoprazole 18. DVT prophylaxis: SCDs CODE STATUS: Full code.
--- NOTE | 2020-08-30 12:39 | PN ---
PROGRESS NOTE Patient is seen for followup for acute kidney injury and severe volume overload. She remains on the vent. Patient has not had dialysis since August 26. She has had good urine output, currently in negative balance. Lasix was increased yesterday. Serum creatinine is down to 0.8 mg/dL. EXAMINATION: Today patient is on the vent. Blood pressure is 132/66, heart rate 86 per minute, she is afebrile. FiO2 at 40%. Examination of the heart S1, S2. Examination of the lungs, bilateral breath sounds are heard. Abdomen is soft, obese. Examination of lower extremities shows edema 2+ bilaterally. HEALTH NAVIGATOR exam cannot be performed. LAB: Show sodium 145, potassium 4.5, chloride 107, BUN of 43, serum creatinine 0.8, calcium 7.5. ASSESSMENT: 1. Acute kidney injury, acute tubular necrosis, currently resolved, status post dialysis. No dialysis since 08/26/2020. 2. Hypokalemia secondary to diuretics being replaced. 3. Acute hypoxic respiratory failure associated with volume overload, currently improving. 4. Severe volume overload, currently maintained on Lasix and patient is in negative balance by about 1.5 L. 5. Wound dehiscence, being managed by cardiothoracic surgery. 6. MSSA sepsis with septic shock, maintained on antibiotics. PLAN: Continue with the current dose of Lasix. Maintain in negative balance. Repeat labs in a.m. We can discontinue the dialysis catheter. MMODL / IJN: [id number] /
[2020-08-30] MEDS ORDERED: Potassium Replacement Protocol 1 EACH MISC MISCELLANE PRN (16:44)
[2020-08-30 17:21] LABS: Glucose,Whole Blood 128 mg/dL (75-99)
[2020-08-30] MEDS: ACETAMINOPHEN TAB 325 MG TAB PO PRN (17:24)
--- NOTE | 2020-08-30 20:05 | PN ---
PROGRESS NOTE DATE OF SERVICE: 08/30/2020 REASON FOR FOLLOWUP: MSSA bacteremia secondary to sternal wound infection. INTERVAL HISTORY: Patient is currently afebrile. The patient is hemodynamically stable, not on pressor support. FiO2 is currently stable at 40%. No significant purulent secretions through the ET has been reported by nursing staff or diarrhea. PHYSICAL EXAMINATION: Blood pressure 111/58 with a pulse of 100. Temperature 98. She is 97% on 40% FiO2. GENERAL DESCRIPTION is an elderly female lying in bed in no distress. RESPIRATORY SYSTEM: Unlabored breathing, decreased breath sounds in the base, with no wheeze. HEART: S1, S2. Regular rate and rhythm. ABDOMEN: Soft, no tenderness. LABS: Hemoglobin is 10.2, white count 19.8. BUN of 43, creatinine 0.82. DIAGNOSTIC IMPRESSION AND PLAN: Patient with MSSA bacteremia, source of the sternal wound infection, osteomyelitis, status post debridement, persistent bacteremia could have been related to the dialysis catheter that has been discontinued today. Blood cultures repeated daily. Continue with nafcillin and clindamycin. Monitor clinical course closely. MMODL / IJN: [id number] /
[2020-08-30] MEDS: SENNOSIDES-DOCUSATE SODIUM 1 EACH TAB PO SCH (22:02)
[2020-08-30 23:45] LABS: Glucose,Whole Blood 106 mg/dL (75-99)
[2020-08-31] MEDS: CLINDAMYCIN 900 MG in DEXTROSE 5% IN WATER 50 ML IVPB SCH ×6 (01:26→16:28)
[2020-08-31] MEDS: HEPARIN SODIUM,PORCINE 5,000 UNIT/ML 1 ML VIAL SQ SCH ×3 (01:26→16:25)
[2020-08-31] MEDS: NAFCILLIN 2 GM in DEXTROSE 5% IN WATER 100 ML IVPB SCH ×12 (01:26→20:01)
[2020-08-31] MEDS: METOPROLOL TARTRATE 25 MG TAB PO SCH (01:27)
[2020-08-31] MEDS: INSULIN ASPART (NovoLOG) 100 UNIT/ML VIAL SQ SCH ×4 (01:27→18:33)
[2020-08-31] MEDS: SODIUM CHLORIDE 0.9% 1,000 ML IV SCH (01:27)
[2020-08-31 04:23] LABS: Anisocytosis Slight; Basophils # (A) 0.1 k/uL (0-0.2); Basophils % (A) 0 %; Eosinophils # (A) 0.2 k/uL (0-0.7); Eosinophils % (A) 2 %; HCT 30.6 % (34.0-46.0); Hypochromasia Slight; Lymphocytes # (A) 2.1 k/uL (1.0-4.8); Lymphocytes % (A) 14 %; MCH 29.3 pg (25.0-35.0); MCHC 32.6 g/dL (31.0-37.0); MCV 90.1 fL (80.0-100.0); Mean Platelet Volume 9.8; Monocytes # (A) 0.6 k/uL (0-1.0); Monocytes % (A) 4 %; Neutrophils % (A) 79 %; Platelet Count 129 k/uL (150-450); Poikilocytosis Slight; WBC 15.1 k/uL (3.8-10.6)
[2020-08-31 04:31] LABS: Ionized Calcium 4.2 mg/dL (4.5-5.3)
[2020-08-31 04:48] LABS: Albumin 2.4 g/dL (3.5-5.0); Calcium 7.3 mg/dL (8.4-10.2); Magnesium 1.7 mg/dL (1.6-2.3); Potassium 3.2 mmol/L (3.5-5.1); Total Bilirubin 6.7 mg/dL (0.2-1.3); Total Protein 6.3 g/dL (6.3-8.2)
[2020-08-31] MEDS ORDERED: Magnesium Replacement Protocol 1 EACH MISC MISCELLANE PRN (05:18)
[2020-08-31 05:26] LABS: ABG Base Excess 14.1 mmol/L; ABG HCO3 36 mmol/L (21-25); ABG Oxygen Saturation 94.7 % (94-97); ABG PCO2 39 mmHg (35-45); ABG PO2 65 mmHg (83-108); ABG TCO2 37 mmol/L (19-24); Allen Test Performed? Yes
[2020-08-31 05:36] LABS: Glucose,Whole Blood 121 mg/dL (75-99)
[2020-08-31 05:49] LABS: ABG PH 7.58 (7.35-7.45)
[2020-08-31] MEDS: POTASSIUM BICARBONATE/CIT AC 20 MEQ TABLET.EFF NG-TUBE SCH ×4 (05:50→16:25)
[2020-08-31] MEDS: MAGNESIUM SULFATE-D5W PMX 1 GM in DEXTROSE/WATER 1 100ML.BAG IVPB SCH ×2 (05:58→08:03)
--- NOTE | 2020-08-31 07:33 | XR ---
EXAMINATION TYPE: XR chest 1V portable DATE OF EXAM: 08/31/2020 COMPARISON: Chest x-ray 08/30/2020 HISTORY: Intubated TECHNIQUE: Single frontal view of the chest is obtained. FINDINGS: Endotracheal tube, orogastric tube, overlying leads and artifacts are again noted. Patient is post median sternotomy and left atrial appendage clip placement. No evident pneumothorax or pleur al effusion. There is some improvement in the confluent densities within the lungs. Postop change not ed to the cervical spine. IMPRESSION: Some improvement in aeration.
[2020-08-31] MEDS: IPRATROPIUM-ALBUTEROL 3 ML NEB INHALATION PRN ×4 (07:47→19:54)
[2020-08-31] MEDS: CHLORHEXIDINE GLUCONATE 15 ML CUP MUCOUS MEM SCH ×2 (08:07→21:15)
[2020-08-31] MEDS: ASPIRIN 325 MG TAB PO SCH (08:08)
[2020-08-31] MEDS: METOPROLOL TARTRATE 50 MG TAB PO SCH ×2 (08:08→21:15)
[2020-08-31] MEDS: FUROSEMIDE 10 MG/ML 10 ML VIAL IV SCH (08:08)
[2020-08-31] MEDS: PANTOPRAZOLE 40 MG/10 ML VIAL IVP SCH (08:09)
[2020-08-31] MEDS: ACETAMINOPHEN TAB 325 MG TAB PO PRN ×3 (08:09→18:39)
[2020-08-31] MEDS: CLOPIDOGREL 75 MG TAB PO SCH (08:09)
[2020-08-31] MEDS: DRY MOUTH SPRAY 44.3 SPRAY/44.3 ML SPRAY MUCOUS MEM SCH ×4 (08:10→21:14)
--- NOTE | 2020-08-31 09:07 | P.PN ---
Subjective Progress Note Date: 08/31/20 Principal diagnosis: Shortness of breath, acute diastolic heart failure, bilateral pleural effusion, lactic acidosis, hypercapnic respiratory failure requiring BiPAP followed by sd chanical ventilation, deep sternal wound infection with MSSA, acute kidney injury, acute hyperkalemia, hyponatremia, acute transaminitis, hypotension requiring vasopressors use, acute anemia. Previous medical history of coronary artery disease with left main stenosis status post 2 vessel CABG on 08/10/2020 with expected postoperative acute blood loss anemia, hypotension, and urinary retention as well as candidal stomatititus, hyponatremia, pulmonary fibrosis, asthma, hypertension, hyperlipidemia, previous tobacco dependence, obesity, osteoarthritis, cervical stenosis post anterior cervical disc decompression, discectomy and fusion, TIA as a child, family history of premature coronary artery disease. Paroxysmal Afib w/ RVR POD #4 sternal exploration with sternal debridement The patient was seen and examined at the bedside in the ICU. Remains yesterday, mechanically ventilated. She is opening her eyes, does move both arms and legs minimally, does not follow commands. T-max 100.7 in the last 24 hours, WBC 15.1, blood cultures continue to be positive for MSSA, sternal wound culture positive for MSSA. Sputum culture from 08/28 negative, positive for MSSA 08/26. Patient remains on IV clindamycin and nafcillin per infectious disease. Currently in NSR with HR in the high 90s to low 100s. Blood pressure stable, off Levophed. BUN 48, creatinine 1.0, AST 67, ALT 57. Hemoglobin 10 this morning. Tube feeds continue. Dialysis completed, temporary dialysis cath discontinued yesterday, continuous on IV lasix per nephrology with excellent diuresis. Sternal wound dressing changed with Dr. Olivera yesterday, will change again today. Plan is for daily dressing changes by cardiothoracic surgery with eventual flap closure by plastic surgeon. Family updated daily by phone. Objective - Vital Signs Vital signs: Vital Signs Temp 99.2 F 08/31/20 08:30 Pulse 98 08/31/20 08:30 Resp 28 H 08/31/20 08:30 BP 139/63 08/31/20 08:30 Pulse Ox 98 08/31/20 08:30 Intake & Output 08/30/20 08/31/20 08/31/20 18:59 06:59 18:59 Intake Total 1317.154 3388 371 Output Total 2049 2770 300 Balance -879.172 -4307 71 Weight 91.3 kg Intake: IV 640 660 295 Clindamycin 900 mg In 100 50 50 Dextrose 5% in Water 50 ml @ 50 mls/hr IVPB Q8HR [facility] Rx#:[id number] Magnesium Sulfate-D5w Pmx 100 100 1 gm In Dextrose/Water 1 100ml.bag @ 100 mls/hr IVPB Q1H [facility] Rx#: [id number] Nafcillin 2 gm In 300 300 100 Dextrose 5% in Water 100 ml @ 50 mls/hr IVPB Q4HR [facility] Rx#:[id number] Sodium Chloride 0.9% 1, 240 210 45 000 ml @ 20 mls/hr IV . Q24H [facility] Rx#:[id number] Intake, IV Titration 185.506 Amount Norepinephrine 4 mg In 79.759 Sodium Chloride 0.9% 250 ml @ 0.05 MCG/KG/MIN 14. 973 mls/hr IV .[id number] [facility] Rx#:[id number] propofoL 500 mg In Empty 105.747 Bag 1 bag @ Titrate IV . Q0M [facility] Rx#:[id number] Tube Feeding 253 276 46 Other 90 180 30 Output: Urine 2049 2770 300 Other: Voiding Method Indwelling Catheter Indwelling Catheter ABP, PAP, CO, CI - Last Documented Arterial Blood Pressure 153/92 - Constitutional Constitutional Comment(s): Appears comfortable General appearance: Present: no acute distress - Respiratory Details: Lungs sounds diminished in the bases bilaterally. Respirations even, nonlabored on mechanical ventilation. Current vent settings FiO2 40%, tidal volume 400, respiratory rate 20, PEEP 8. ABGs this morning on those settings 7.58/39/65/36/94%/14.1. 7.5 ET tube present, 22 at the lip. - Cardiovascular Details: S1, S2 present. Regular rate and rhythm, sinus rhythm with heart rate in the high 90s to low 100s. Palpable peripheral pulses bilaterally. Generalized edema present. Heart hugger, antiembolism stockings, SCDs present. Right femoral triple-lumen central line present. - Gastrointestinal Gastrointestinal Comment(s): Abdomen soft, nontender, nondistended. Active bowel sounds present 4 quadrants. OG tube present, tube feedings continue. Liquid brown stool per nursing - Genitourinary Genitourinary Comment(s): Yu present draining yellow urine, 150-600 mL/hr, 4820 mL in the last 24 hours. - Integumentary Integumentary Comment(s): Anterior chest incision open, packed with sterile saline soaked kerlix and covered w/ ABD pad. Left lower extremity EVH site well approximated without redness or drainage, bruising present - Neurologic Neurologic Comment(s): Opens eyes, does not track. Moves bilateral upper and lower extremities minimally, not to command. Does withdraw to painful stimuli - Musculoskeletal Musculoskeletal: Present: generalized weakness - Psychiatric Psychiatric Comment(s): Does shake her head no when asked if in pain - Allied health notes Allied health notes reviewed: nursing - Labs CBC & Chem 7: 08/31/20 03:33 08/31/20 03:33 Labs: Abnormal Lab Results - Last 24 Hours (Table) 08/30/20 08/30/20 08/30/20 Range/Units 11:36 15:30 17:20 WBC (3.8-10.6) k/uL RBC (3.80-5.40) m/uL Hgb (11.4-16.0) gm/dL Hct (34.0-46.0) % RDW (11.5-15.5) % Plt Count (150-450) k/uL Neutrophils # (1.3-7.7) k/uL ABG pH (7.35-7.45) ABG pO2 (83-108) mmHg ABG HCO3 (21-25) mmol/L ABG Total CO2 (19-24) mmol/L Potassium 3.4 L (3.5-5.1) mmol/L Carbon Dioxide (22-30) mmol/L BUN (7-17) mg/dL Glucose (74-99) mg/dL POC Glucose (mg/dL) 126 H 128 H (75-99) mg/dL Calcium (8.4-10.2) mg/dL Ionized Calcium Matt (4.5-5.3) mg/dL Total Bilirubin (0.2-1.3) mg/dL AST (14-36) U/L ALT (4-34) U/L Alkaline Phosphatase (38-126) U/L Albumin (3.5-5.0) g/dL 08/30/20 08/31/20 08/31/20 Range/Units 23:43 03:33 03:33 WBC 15.1 H (3.8-10.6) k/uL RBC 3.40 L (3.80-5.40) m/uL Hgb 10.0 L (11.4-16.0) gm/dL Hct 30.6 L (34.0-46.0) % RDW 16.0 H (11.5-15.5) % Plt Count 129 L (150-450) k/uL Neutrophils # 12.0 H (1.3-7.7) k/uL ABG pH (7.35-7.45) ABG pO2 (83-108) mmHg ABG HCO3 (21-25) mmol/L ABG Total CO2 (19-24) mmol/L Potassium 3.2 L (3.5-5.1) mmol/L Carbon Dioxide 33 H (22-30) mmol/L BUN 48 H (7-17) mg/dL Glucose 124 H (74-99) mg/dL POC Glucose (mg/dL) 106 H (75-99) mg/dL Calcium 7.3 L (8.4-10.2) mg/dL Ionized Calcium Matt 4.2 L (4.5-5.3) mg/dL Total Bilirubin 6.7 H (0.2-1.3) mg/dL AST 67 H (14-36) U/L ALT 57 H (4-34) U/L Alkaline Phosphatase 349 H (38-126) U/L Albumin 2.4 L (3.5-5.0) g/dL 08/31/20 08/31/20 Range/Units 05:25 05:35 WBC (3.8-10.6) k/uL RBC (3.80-5.40) m/uL Hgb (11.4-16.0) gm/dL Hct (34.0-46.0) % RDW (11.5-15.5) % Plt Count (150-450) k/uL Neutrophils # (1.3-7.7) k/uL ABG pH 7.58 H* (7.35-7.45) ABG pO2 65 L (83-108) mmHg ABG HCO3 36 H (21-25) mmol/L ABG Total CO2 37 H (19-24) mmol/L Potassium (3.5-5.1) mmol/L Carbon Dioxide (22-30) mmol/L BUN (7-17) mg/dL Glucose (74-99) mg/dL POC Glucose (mg/dL) 121 H (75-99) mg/dL Calcium (8.4-10.2) mg/dL Ionized Calcium Matt (4.5-5.3) mg/dL Total Bilirubin (0.2-1.3) mg/dL AST (14-36) U/L ALT (4-34) U/L Alkaline Phosphatase (38-126) U/L Albumin (3.5-5.0) g/dL Microbiology - Last 24 Hours (Table) 08/30/20 03:56 Blood Culture - Preliminary Blood No Growth after 24 hours 08/28/20 12:04 Blood Culture Gram Stain - Final Blood Blood Culture - Final Staphylococcus aureus 08/28/20 12:19 Blood Culture Gram Stain - Final Blood Blood Culture - Final Staphylococcus aureus 08/29/20 05:20 Blood Culture Gram Stain - Preliminary Blood Blood Culture - Preliminary Presumptive Staph aureus 08/28/20 11:00 Gram Stain - Final Sputum Sputum Culture - Final 08/29/20 05:20 Blood Culture - Final Blood - Imaging and Cardiology Chest x-ray: report reviewed, image reviewed Assessment and Plan Assessment: 1. Shortness of breath, acute diastolic heart failure, EF 55-60% on current TTE, bilateral pleural effusions 2. Lactic acidosis, septic shock, blood cultures positive for MSSA 3. Hypercapnic, hypoxic respiratory failure requiring BiPAP, with subsequent intubation and mechanical ventilation 4. Open sternal wound, surgically created, deep sternal wound infection with MSSA, S/P surgical exploration and debridement 5. Leukocytosis with bandemia 6. Acute kidney injury, metabolic acidosis 7. Acute hyperkalemia, resolved 8. Acute transaminitis secondary to hypoperfusion 9. History of hypertension, currently hypotensive requiring vasopressors 10. Acute anemia, post transfusion PRBCs, on 11. Coronary artery disease with left main stenosis status post 2 vessel CABG on 08/10/2020 with expected postoperative acute blood loss anemia, hypotension, and urinary retention as well as candidal stomatititus 12. Hyponatremia, resolved 13. Pulmonary fibrosis, asthma 14. Hyperlipidemia, treated 15. Previous tobacco dependence 16. Obesity 17. Paroxysmal afib w/ RVR, atrial flutter, status post exclusion of the left atrial appendage using a 35 mm AtriClip, currently sinus rhythm Plan: 1. Ventilator management per pulmonary medicine. Wean to extubate when able 2. Nephrology following, avoid nephrotoxins, lasix per nephro 3. Infectious disease following, final blood cultures/sternal wound cultures positive for MSSA, continue antibiotics 4. Continue aspirin, statin, Plavix, beta sisi therapy. Lopressor increased to 50 mg twice daily today. 5. No anticoagulation necessary 6. Will monitor daily labs and x-rays, ABGs. 7. Cardiothoracic surgery to change sternal dressing daily, RNs may reinforce but not to remove dressing, will eventually need a muscle flap closure by plastic surgeon. Dr. Whittaker consulted 8. GI/DVT prophylaxis 9. Continue tube feeding for nutrition 10. Will update family daily 11. More recommendations to follow Time with Patient: Greater than 30
--- NOTE | 2020-08-31 10:29 | P.PN ---
Subjective Progress Note Date: 08/31/20 Principal diagnosis: Respiratory failure, sternal wound infection. Reevaluated today on 08/28/2020, patient remains in the ICU, intubated and mechanically ventilated. Her assist-control rate is 20, volume is 450 FiO2 is 50% PEEP was at 5 and I increased it up to 8. ABG showed a pO2 of 57 pCO2 of 30 pH of 7.53. O2 saturation on the monitor is 96%. Patient remains on norepine phrine at 0.07 mcg/kg/m, she is also on propofol at 65 mcg/kg/m. Patient is on enteral feeding. Remains on cefepime and daptomycin for her positive blood cultures/MSSA. Patient is also on Lasix at 80 mg IV push every 24 hours. Her urine output has been good. And her chest x-ray continues to show mild congestive heart failure changes. Patient has leukocytosis with WBC count 24.3, electrolytes are normal BUN is 46 creatinine 0.90. Liver enzymes are trending down slowly Patient was reevaluated today on 08/29/2020, remains intubated and mechanically ventilated. She is on assist control rate of 20 tidal volume is 450 FiO2 is 50% and PEEP of 8. ABG showed a pO2 of 56 pCO2 of 35 pH of 7.50 however her O2 saturation on the monitor is 99%. Patient remains on norepinephrine at 0.05 mcg/kg/m, he is on propofol at 70 mcg/kg/m, she is on Lasix 80 mg IV push daily, with good urine output. IV fluid mostly at KVO. Antibiotics garzon she is on cefazolin and clindamycin. Patient had MSSA in the blood and in the sternal wound. Chest x-ray continues to show evidence of pulmonary edema, and now she seems to be developing some consolidation in the right upper lobe medially. Her sternum remains open, decision regarding sternal closure will be made in the next 24-48 hours by thoracic surgery. Patient continues to have leukocytosis with WBC count of 24.2 hemoglobin is 10.6, basic metabolic profile is normal renal profile is normal not requiring any further dialysis, and she has good uri ne output responding well to diuretics. Liver enzymes seem to be trending down 08/30/2020 the patient remains intubated on a mechanical ventilator. This morning, she has an assist-control at the rate of 20 with tidal volume of 450 and the flow of 70 with a FiO2 of 50% with a PEEP of 8. The morning blood gases from today showed a pH of 7.55, and the pCO2 is a 35 with a pO2 of 72. Necessity ventilator changes were done. Peak airway pressure was 37. Static pressure was 32. Chest x-ray still showing diffuse bilateral pulmonary infiltrates consistent with pneumonia although possibility of an acute lung injury/ARDS cannot be completely excluded. ET tube is in a good location. The patient this morning is sedated with propofol which is running at 50 mcg/kg per minute. Sedation holiday was given this morning to evaluate her mental status. I was told yesterday that the patient did have some diminished level of consciousness once she was off the sedation. Nevertheless she was placed on sedation again to maintain synchrony with the mechanical ventilator. She is septic with staff aureus, MSSA has been cultured in her sputum, and her blood and in her sternal wound. Her current antibiotic coverage including a combination of nafcillin and clindamycin. She is afebrile. Sternal wound is being monitored by the cardiothoracic surgery team. Daily dressing changes are being done. There is still output which is purulent according to the nursing staff. Pressors and the patient is currently on norepinephrine running at 0.04 mcg/kg per minute. Renal function is improving and the creatinine is down to 0.78. The white cell count is at 19.8 with hemoglobin of 10.2 and a platelet count of 90. Liver function tests continue to improve with an AST of 68, ALT of 77 and the last blood culture was taken from 08/29/2020 was again positive for gram-positive bacteria most likely MSSA. The patient has orogastric tube in place and she is receiving vital high protein at a rate of 23 mL an hour. This is at goal for now. No abdominal distention. No increased residuals for now. She is afebrile. Progress note dated 08/31/2020. This is a 75-year-old female was admitted to the hospital on August 22, she came in for a sternal wound infection, and worsening respiratory status with heart failure. Unfortunately, she developed severe hypoxemic respiratory failure and required intubation on August 25. She was discovered to have a sternal wound infection and went to the operating room for debridement, on August 27. Microbiology is positive for methicillin sensitive staph aureus, and she remains on nafcillin and clindamycin. This patient initially had a two- vessel bypass grafting on 08/10/2020, and was discharged on 08/19/2020. Currently, the patient remains on the volume assist control mode, rate is 20, tidal volume is 400, FiO2 40%, and PEEP of 8. Blood gases show a PaO2 of 65, a PaCO2 39, and a pH is 7.58. His blood gases consistent with a relative hypoxemia, and a severe metabolic alkalosis. Currently, the norepinephrine has been weaned off. She remains on saline at 25 mL an hour, and she is currently not on any sedation. She's getting vital high protein at 23 mL an hour with a goal of 28 mL an hour. Today, regarding do a spontaneous breathing trial, on pressor support of 15, CPAP of 5. If the patient shows any signs of deterioration, such as tachycardia, tachypnea, hypertension, diaphoresis, higher respiratory rates, and/or lower tidal volumes, the patient will be switched back to the volume assist control mode with the. Objective - Vital Signs Vital signs: Vital Signs Temp 99.2 F 08/31/20 08:30 Pulse 98 08/31/20 08:30 Resp 28 H 08/31/20 08:30 BP 139/63 08/31/20 08:30 Pulse Ox 98 08/31/20 08:30 Intake & Output 08/30/20 08/31/20 08/31/20 18:59 06:59 18:59 Intake Total 8974.421 8312 371 Output Total 2050 2770 300 Balance -881.234 -1368 71 Weight 91.3 kg Intake: IV 640 660 295 Clindamycin 900 mg In 100 50 50 Dextrose 5% in Water 50 ml @ 50 mls/hr IVPB Q8HR [facility] Rx#:[id number] Magnesium Sulfate-D5w Pmx 100 100 1 gm In Dextrose/Water 1 100ml.bag @ 100 mls/hr IVPB Q1H [facility] Rx#: [id number] Nafcillin 2 gm In 300 300 100 Dextrose 5% in Water 100 ml @ 50 mls/hr IVPB Q4HR [facility] Rx#:[id number] Sodium Chloride 0.9% 1, 240 210 45 000 ml @ 20 mls/hr IV . Q24H [facility] Rx#:[id number] Intake, IV Titration 185.506 Amount Norepinephrine 4 mg In 79.759 Sodium Chloride 0.9% 250 ml @ 0.05 MCG/KG/MIN 14. 973 mls/hr IV .[id number] [facility] Rx#:[id number] propofoL 500 mg In Empty 105.747 Bag 1 bag @ Titrate IV . Q0M [facility] Rx#:[id number] Tube Feeding 253 276 46 Other 90 180 30 Output: Urine 2050 2770 300 Other: Voiding Method Indwelling Catheter Indwelling Catheter ABP, PAP, CO, CI - Last Documented Arterial Blood Pressure 153/92 - Exam No acute distress, currently off sedation, not particularly responsive, but stable. HEENT examination is grossly unremarkable. Mucous membranes are moist. There is an orally placed endotracheal tube, and an orally placed nasogastric tube. Neck supple. Full range of motion. No adenopathy thyromegaly or neck vein distention. Cardiovascular examination reveals regular rhythm rate. S1-S2 normal. No S3 or S4. A soft systolic murmur is noted, grade 2/6. Lungs reveal scattered mild rhonchi. No wheezes or crackles. Breath sounds equal bilaterally. Abdomen soft bowel sounds are heard. No masses or tenderness. Extremities are intact. No cyanosis clubbing or edema. Skin reveals a dressing over the sternal wound infection.. Neurologic examination reveals a poorly responsive white female. - Labs CBC & Chem 7: 08/31/20 03:33 08/31/20 03:33 Labs: Abnormal Lab Results - Last 24 Hours (Table) 08/30/20 08/30/20 08/30/20 Range/Units 11:36 15:30 17:20 WBC (3.8-10.6) k/uL RBC (3.80-5.40) m/uL Hgb (11.4-16.0) gm/dL Hct (34.0-46.0) % RDW (11.5-15.5) % Plt Count (150-450) k/uL Neutrophils # (1.3-7.7) k/uL ABG pH (7.35-7.45) ABG pO2 (83-108) mmHg ABG HCO3 (21-25) mmol/L ABG Total CO2 (19-24) mmol/L Potassium 3.4 L (3.5-5.1) mmol/L Carbon Dioxide (22-30) mmol/L BUN (7-17) mg/dL Glucose (74-99) mg/dL POC Glucose (mg/dL) 126 H 128 H (75-99) mg/dL Calcium (8.4-10.2) mg/dL Ionized Calcium Matt (4.5-5.3) mg/dL Total Bilirubin (0.2-1.3) mg/dL AST (14-36) U/L ALT (4-34) U/L Alkaline Phosphatase (38-126) U/L Albumin (3.5-5.0) g/dL 08/30/20 08/31/20 08/31/20 Range/Units 23:43 03:33 03:33 WBC 15.1 H (3.8-10.6) k/uL RBC 3.40 L (3.80-5.40) m/uL Hgb 10.0 L (11.4-16.0) gm/dL Hct 30.6 L (34.0-46.0) % RDW 16.0 H (11.5-15.5) % Plt Count 129 L (150-450) k/uL Neutrophils # 12.0 H (1.3-7.7) k/uL ABG pH (7.35-7.45) ABG pO2 (83-108) mmHg ABG HCO3 (21-25) mmol/L ABG Total CO2 (19-24) mmol/L Potassium 3.2 L (3.5-5.1) mmol/L Carbon Dioxide 33 H (22-30) mmol/L BUN 48 H (7-17) mg/dL Glucose 124 H (74-99) mg/dL POC Glucose (mg/dL) 106 H (75-99) mg/dL Calcium 7.3 L (8.4-10.2) mg/dL Ionized Calcium Matt 4.2 L (4.5-5.3) mg/dL Total Bilirubin 6.7 H (0.2-1.3) mg/dL AST 67 H (14-36) U/L ALT 57 H (4-34) U/L Alkaline Phosphatase 349 H (38-126) U/L Albumin 2.4 L (3.5-5.0) g/dL 08/31/20 08/31/20 Range/Units 05:25 05:35 WBC (3.8-10.6) k/uL RBC (3.80-5.40) m/uL Hgb (11.4-16.0) gm/dL Hct (34.0-46.0) % RDW (11.5-15.5) % Plt Count (150-450) k/uL Neutrophils # (1.3-7.7) k/uL ABG pH 7.58 H* (7.35-7.45) ABG pO2 65 L (83-108) mmHg ABG HCO3 36 H (21-25) mmol/L ABG Total CO2 37 H (19-24) mmol/L Potassium (3.5-5.1) mmol/L Carbon Dioxide (22-30) mmol/L BUN (7-17) mg/dL Glucose (74-99) mg/dL POC Glucose (mg/dL) 121 H (75-99) mg/dL Calcium (8.4-10.2) mg/dL Ionized Calcium Matt (4.5-5.3) mg/dL Total Bilirubin (0.2-1.3) mg/dL AST (14-36) U/L ALT (4-34) U/L Alkaline Phosphatase (38-126) U/L Albumin (3.5-5.0) g/dL Microbiology - Last 24 Hours (Table) 08/30/20 03:56 Blood Culture - Preliminary Blood No Growth after 24 hours 08/28/20 12:04 Blood Culture Gram Stain - Final Blood Blood Culture - Final Staphylococcus aureus 08/28/20 12:19 Blood Culture Gram Stain - Final Blood Blood Culture - Final Staphylococcus aureus 08/29/20 05:20 Blood Culture Gram Stain - Preliminary Blood Blood Culture - Preliminary Presumptive Staph aureus 08/28/20 11:00 Gram Stain - Final Sputum Sputum Culture - Final 08/29/20 05:20 Blood Culture - Final Blood Assessment and Plan Assessment: Acute hypoxemic and hypercapnic respiratory failure, secondary to incisional wound infection, with methicillin sensitive staph aureus, as well as pneumonia, and bilateral pleural effusions. Status post readmission on August 22, and intubation for respiratory failure on August 25. Sepsis, secondary to sternal wound infection, caused by methicillin sensitive staph aureus, with bacteremia. Septic shock, secondary to sternal wound infection. Acute kidney injury, requiring a brief period of hemodialysis. Acute metabolic acidosis, secondary to acute kidney injury. Acute diastolic CHF with bilateral pleural effusions. History of hypertension. History of cervical stenosis. Primary history of tobacco use. Mild pulmonary fibrosis/interstitial lung disease. Status post sternal exploration with sternal debridement, August 27. Recent prior history of two-vessel bypass grafting, on August 10, with discharge on August 19. Plan: Plan dated 08/31/2020. The patient will remain on full ventilatory support although, since the patient is off sedation, she will get a spontaneous breathing trial, with pressor support and CPAP. Her most recent blood gases show a relative hypoxemia, and a severe metabolic alkalosis. Multiple blood cultures show evidence of methicillin sensitive staph aureus bacteremia. White count is 15.1, hemoglobin 10, hematocrit 30.6, and platelet count 129,000. Sodium is 145, potassium 3.2, chlorides 102, CO2 33, anion gap is 10, BUN and creatinine were 48 and 1.0, suggesting prerenal azotemia. Her electrolyte pattern is consistent with somebody who is being excessively diuresed. Her metabolic alkalosis secondary to volume contraction, and hypokalemia. Chest x-ray does show diffuse infiltrates, which might relate more to acute lung injury then to fluid overload. If not recently done, I will order a N-terminal proBNP. I would strongly recommend either discontinuing completely, or significantly cutting back the patient's Lasix. The patient remains on nafcillin and clindamycin. Prognosis is guarded. One of the plastic surgeons have been consulted for a muscle flap procedure. We will continue to follow make appropriate recommendations. Time with Patient: Greater than 30
[2020-08-31] MEDS: MIDODRINE 5 MG TAB PO SCH ×3 (10:32→22:03)
--- NOTE | 2020-08-31 10:35 | PN ---
PROGRESS NOTE Mrs. Alvarenga is a 75-year-old female. She is intubated, awake, alert. She is off her sedation. She is on no vasopressor. She is following commands. She is status post coronary artery bypass grafting with HOLLAND to LAD, saphenous vein graft on August 10, 2020, history of pulmonary fibrosis who was readmitted to the hospital with symptoms of progressive dyspnea and she had evidence of sternal wound dehiscences. She underwent debridement of the sternum yesterday. Her urine output has been stable. She has no evidence of malignant arrhythmia. Hemodynamically, she is stable. She is tolerating feeding tube. She continues to be at this time on aspirin once a day, Plavix 75 mg daily, Lasix 80 mg IV q.12 hours, metoprolol tartrate 25 mg q.8 hours. PHYSICAL EXAMINATION: VITAL SIGNS: Blood pressure is running in the 120s to 150s with a heart rate in the low 100s, in sinus. LUNGS: No wheezes anteriorly. HEART: Regular rate and rhythm, S1, S2. No S3. No rub appreciated. Dressing noted on the sternum. ABDOMEN: Soft, nontender. Positive bowel sounds. No organomegaly. EXTREMITIES: No edema. LAB DATA: Lab data revealed BUN and creatinine of 48 and 1.0. Her potassium is 3.2. Her white blood cell of 15.1, hemoglobin of 10. Her AST is 67, significantly improved compared to her initial lab data. IMPRESSION: 1. Respiratory failure, status post coronary artery bypass grafting with sternal wound dehiscence. 2. Sternal wound dehiscence. 3. Status post coronary artery bypass grafting. 4. Acute renal injury, stabilizing. 5. History of hypertension. 6. History of hyperlipidemia. 7. History of mild interstitial lung disease. RECOMMENDATION: From the cardiac standpoint, continue current therapy. We will continue holding her statin at this time. The ventilation will be accessed by the kiln car repairer. Depending on her blood pressure and her renal function, the decision will be made to reinitiate angiotensin receptor sisi. MMODL / IJN: [id number] /
[2020-08-31 11:31] LABS: Glucose,Whole Blood 121 mg/dL (75-99)
--- NOTE | 2020-08-31 12:16 | P.PN ---
Subjective Progress Note Date: 08/31/20 Principal diagnosis: Septic shock from infected sternal wound with dehiscence, CAD post CABG, respiratory failure on mechanical ventilation, hyperglycemia This is a 75-year-old female patient of Dr. Rich Avila, Dr. Sloan and Dr. Guadalupe. She has a past medical history significant for hypertension, hyperlipidemia, pulmonary fibrosis, asthma, obesity, remote history of tobacco dependence with smoking 32 years ago, osteoarthritis, cervical stenosis post anterior cervical decompression, discectomy and fusion, TIA as a child at age 11 and family history of premature coronary artery disease with her father being diagnosed in his early 50s. Recently, the patient has been experiencing episodes of shortness of breath over the past 6 months with just minimal activity. She also complained of some lower extremity swelling which did resolve with some diuresis. she underwent a stress test which showed anterior wall ischemia with small reversible defect. a 2-D echocardiogram which showed mild aortic valve insufficiency, mild mitral valve regurgitation, mild tricuspid valve regurgitation and left ventricular function to be normal with an ejection fraction of 55%. Subsequently she underwent an elective heart catheterization on 07/27/2020 which demonstrated a left main stenosis with QING with a calculation of 2.6 mm, a 40% stenosis to her mid left anterior descending coronary artery and a 30% stenosis to her right coronary artery. Due to the patient's symptoms and findings on her heart catheterization of left main stenosis a consult was placed to Dr. Sethi from cardiothoracic surgery for further evaluation and treatment recommendations. During her preoperative workup her serum sodium level was found to be 120 and was admitted prior to surgery for treatment of hyponatremia. Last admission On 08/06/2020-08/19/20 the patient was admitted to the hospital for treatment of her hyponatremia, and once her hyponatremia was resolved on 08/10/2020, asubsequently taken to the operating room where Dr. Sethi performed a double vessel coronary artery bypass grafting surgery using the left internal mammary artery to left anterior setting coronary artery, a reverse greater saphenous vein graft from the aorta to the first obtuse marginal coronary arter y, endoscopic harvesting of the left greater saphenous vein from the groin Upon completion of the surgery the patient was transferred to the intensive care unit where she was recovered, monitored hemodynamically and where she progressed cardiac rehabilitation phase Her oxygen was titrated down, she continued to work with physical/occupational therapy and cardiac rehabilitation, she was tolerating an oral diet, her pain was well controlled without narcotics and she was ready to be discharged home with [facility] care on postoperative day #9. Did not require home O2 on last admission however she required new medication changes including diuretics during that last admission. Patient comes in in worsening shortness of breath anasarca, no chest pain, has BARKER, edma without leg pain new medications from last visit was compliant, requiring lipitor 75bid, tolvaptan. meotprolol 75 bid plavix, lasix 40 mg daily losartain 25 asa 325, ferrous sulfate and fluconazole. patient comes in now for CHF, anarsarc ely pleural effusion, consult with dr Sethi. and cardiology, if okay will be cardiothoracic surgeon can also perform the thoracentesis, however with hypoxemia, also have requested Dr. Gamboa's services. Patient has a hemoglobin of 7.0 on and 3, platelet count of 305, hemoglobin right to admission was 8.0 denies any Hemoccult stools, creatinine was 1.60 from a previous of 0.9 blood pressure is in the low 90s systolic, pulse ox, 90 on 4 L nasal cannula, patient was not discharged with home O2 during her last admission 08/24: A-Team was called for mental status changes. Patient was found to have a blood pressure 99/65, heart rate of 85 and pulse ox of 96% on a nonrebreather with respiratory rate of 32. Patient was transferred to the ICU. She was started on vancomycin and cefepime. Patient has been seen by cardiology with plan to continue vasopressor support, patient may need pleurocentesis. Stat echocardiogram was done to rule out pericardial effusion or tamponade. Patient has been seen by nephrology for acute kidney injury secondary to ATN secondary to hypotension and cardiorenal syndrome. Patient is currently on bicarb drip, status post Lasix 80 mg IV once. Renal replacement therapy to be initiated immediately. Vascular consult in place for a dialysis catheter placement and start hemodialysis today with second treatment tomorrow. Sternal wound was producing thick yellowish brown fluid, was opened approximately 2 cm and deep culture was taken, packed and covered with 4 x 4 dressing. She is requiring vasopressors. She is hypothermic and warming blanket is in place.Patient had minimal output yesterday and none today. She is status post 2.5 L of fluids. 2/16 patient was examined in the ICU. She was able to maintain oxygenation on BiPAP overnight switch to high flow 15 m this morning. Patient did have episodes of agitation last night and was started on Seroquel. She did receive a dose of Seroquel prior to admission and was found to be resting comfortably. Patient is off pressors and bicarbonate drip and metabolic acidosis seemed to have cleared off. On evaluation of patient's lab, WBC is 14.3, hemoglobin 6.5 platelet 208 ABG this morning has a pH of 7.47 CO2 74. Bicarb 29. Sodium has improved to 126 chloride 96 BUN 43 creatinine 2.79 lactic acid has improved to 2.9 calcium 7 liver enzymes elevated AST at 2874 ALT 1469 alkaline phosphatase 192 CRP 356 BNP 13,000 UA does suggest some infection with WBC of 88 hyaline casts 33 protein 2+ urine blood trace nitrite negative leukocyte Estrace negative. Wound cultures positive for presumptive staph aureus. Patient's blood culture from yesterday are positive with presumptive staph aureus. Repeat blood cultures ordered. Patient received 1 unit of PRBCs for low hemoglobin. Urine output has improved to 20-40 mL's per hour. Patient did receive a dose of DDAVP for hyponatremia. Normal saline is running at 50 mL per hour. Did receive hemodialysis today with 2 L ultrafiltration. Patient was also noted to be in A. fib with RVR intermittently and her dose of Lopressor was increased to 25 mg every 8 hours. Continue daptomycin and cefepime for antibiotic coverage. Monitor patient's for QTC prolongation well on Seroquel. Patient has significant dehiscence of wound and may need I&D 08/27 she remains in the ICU, intubated and mechanically ventilated. Patient is going to the OR for debridement today. Patient remains intubated on 50% FiO2 and PEEP of 5, assist control rate of 20volume 450. Continues to require Levophed at 11mcg/ hr . Blood clots and culture positive for MSSA. Urine output is 50-60 mL per hour. Patient continues to be on sedation from propofol at 50 max per KG permanent. IV fluids at KVO. Patient continues to have good urine output after a dose of 80 mg of IV Lasix today. Vision tolerated 2.5 L ultrafiltration yesterday and is started on hemodialysis on August 24. No holiday sedation today. Plan to continue Lasix 80 IV once daily and holding hemodialysis. Anticoagulation held for debridement. 08/28 patient remains in the ICU. Did have sternal Exploration and debridement yesterday remains sedated on propofol. Patient continues to have high temp of 101.6, to 233 tachycardic 111 blood pressure 106/51 oxygen saturation 95% on 50% FiO2. Labs suggest a leukocytosis of 24.3 hemoglobin stable at 10.7 platelet count has dipped dropped to 78, he really suggest a pH of 7.53 pCO2 30 PaO2 57, chloride of 110 potassium 3.5 and anion gap of 6 BUN 46 creatinine 0.9 calcium 7.8 ALT 3:15 alkaline phosphatase 312 AST 112 blood cultures from 08/26 positive for staph aureus. Urine output 1.2 L in 24 hours Repeat blood cultures sent today. Patient continues to be normal sinus rhythm not currently on any anticoagulation at the possibility of going for another debridement. Patient's continues to be on levo fed and still stays intubated. Continue IV Lasix. Patient initiated on IV Lasix 08/29: Patient remain in the ICU, remain on mechanical ventilation, sternal exploration and debridement was done and still have packing area within open wound at this point. Oxygenation is better patient is not 3 to be off vent at this point. Her urine output has been good and hemodynamically stable. 08/30: Patient still on mechanical ventilation, his sternum 1 and was changed today still have significant amount of infection and pus was packed still open. Patient remain on nafcillin and Moni mycin. Still having positive blood culture. 08/31: Patient is more awake today doing trial of weaning parameter try to get patient off the respirator, her incision and infection along the sternum is no change still have packing on still on IV antibiotics. Hemodynamically is more stable. Objective - Vital Signs Vital signs: Vital Signs Temp 99.2 F 08/31/20 08:30 Pulse 96 08/31/20 11:34 Resp 32 H 08/31/20 11:34 BP 118/53 08/31/20 10:00 Pulse Ox 97 08/31/20 09:00 Intake & Output 08/30/20 08/31/20 08/31/20 18:59 06:59 18:59 Intake Total 2888.589 5182 525 Output Total 3780 7890 925 Balance -887.138 -8590 -400 Weight 91.3 kg 91.3 kg Intake: IV 640 660 370 Clindamycin 900 mg In 100 50 50 Dextrose 5% in Water 50 ml @ 50 mls/hr IVPB Q8HR [facility]ORIB[facility] Rx#:[id number] Magnesium Sulfate-D5w Pmx 100 100 1 gm In Dextrose/Water 1 100ml.bag @ 100 mls/hr IVPB Q1H [facility]ORIBIO Rx#: [id number] Nafcillin 2 gm In 300 300 100 Dextrose 5% in Water 100 ml @ 50 mls/hr IVPB Q4HR [facility] Rx#:[id number] Sodium Chloride 0.9% 1, 240 210 120 000 ml @ 20 mls/hr IV . Q24H [facility] Rx#:[id number] Intake, IV Titration 185.506 Amount Norepinephrine 4 mg In 79.759 Sodium Chloride 0.9% 250 ml @ 0.05 MCG/KG/MIN 14. 973 mls/hr IV .[id number] [facility] Rx#:[id number] propofoL 500 mg In Empty 105.747 Bag 1 bag @ Titrate IV . Q0M [facility]IO Rx#:[id number] Tube Feeding 253 276 125 Other 90 180 30 Output: Urine 2050 2770 925 Other: Voiding Method Indwelling Catheter Indwelling Catheter Indwelling Catheter ABP, PAP, CO, CI - Last Documented Arterial Blood Pressure 153/92 - Exam Review of systems: Not able to do patient is on mechanical ventilation. PHYSICAL EXAMINATION Gen: This is a 75-year-old female. Intubated She is in the ICU. Tonya blanket in place for hypothermia. HEENT: Head is atraumatic, normocephalic. Pupils equal, round. Sclerae is anicteric. Patient is intubated, central incision dressed NECK: Supple. No JVD. No lymphadenopathy. No thyromegaly. LUNGS: Diminished. No wheezes or rhonchi. No intercostal retractions. HEART: Regular rate and rhythm. 2/6 systolic murmur. Dressing in place to sternal wound with reported purulent drainage. ABDOMEN: Soft. Bowel sounds are present. No masses. No tenderness. EXTREMITIES: 2+ bilat pitting edema. No calf tenderness. NEUROLOGICAL: Patient is sleeping - Labs CBC & Chem 7: 08/31/20 03:33 08/31/20 03:33 Labs: Abnormal Lab Results - Last 24 Hours (Table) 08/30/20 08/30/20 08/30/20 Range/Units 15:30 17:20 23:43 WBC (3.8-10.6) k/uL RBC (3.80-5.40) m/uL Hgb (11.4-16.0) gm/dL Hct (34.0-46.0) % RDW (11.5-15.5) % Plt Count (150-450) k/uL Neutrophils # (1.3-7.7) k/uL ABG pH (7.35-7.45) ABG pO2 (83-108) mmHg ABG HCO3 (21-25) mmol/L ABG Total CO2 (19-24) mmol/L Potassium 3.4 L (3.5-5.1) mmol/L Carbon Dioxide (22-30) mmol/L BUN (7-17) mg/dL Glucose (74-99) mg/dL POC Glucose (mg/dL) 128 H 106 H (75-99) mg/dL Calcium (8.4-10.2) mg/dL Ionized Calcium Matt (4.5-5.3) mg/dL Total Bilirubin (0.2-1.3) mg/dL AST (14-36) U/L ALT (4-34) U/L Alkaline Phosphatase (38-126) U/L Albumin (3.5-5.0) g/dL 08/31/20 08/31/20 08/31/20 Range/Units 03:33 03:33 05:25 WBC 15.1 H (3.8-10.6) k/uL RBC 3.40 L (3.80-5.40) m/uL Hgb 10.0 L (11.4-16.0) gm/dL Hct 30.6 L (34.0-46.0) % RDW 16.0 H (11.5-15.5) % Plt Count 129 L (150-450) k/uL Neutrophils # 12.0 H (1.3-7.7) k/uL ABG pH 7.58 H* (7.35-7.45) ABG pO2 65 L (83-108) mmHg ABG HCO3 36 H (21-25) mmol/L ABG Total CO2 37 H (19-24) mmol/L Potassium 3.2 L (3.5-5.1) mmol/L Carbon Dioxide 33 H (22-30) mmol/L BUN 48 H (7-17) mg/dL Glucose 124 H (74-99) mg/dL POC Glucose (mg/dL) (75-99) mg/dL Calcium 7.3 L (8.4-10.2) mg/dL Ionized Calcium Matt 4.2 L (4.5-5.3) mg/dL Total Bilirubin 6.7 H (0.2-1.3) mg/dL AST 67 H (14-36) U/L ALT 57 H (4-34) U/L Alkaline Phosphatase 349 H (38-126) U/L Albumin 2.4 L (3.5-5.0) g/dL 08/31/20 08/31/20 Range/Units 05:35 11:29 WBC (3.8-10.6) k/uL RBC (3.80-5.40) m/uL Hgb (11.4-16.0) gm/dL Hct (34.0-46.0) % RDW (11.5-15.5) % Plt Count (150-450) k/uL Neutrophils # (1.3-7.7) k/uL ABG pH (7.35-7.45) ABG pO2 (83-108) mmHg ABG HCO3 (21-25) mmol/L ABG Total CO2 (19-24) mmol/L Potassium (3.5-5.1) mmol/L Carbon Dioxide (22-30) mmol/L BUN (7-17) mg/dL Glucose (74-99) mg/dL POC Glucose (mg/dL) 121 H 121 H (75-99) mg/dL Calcium (8.4-10.2) mg/dL Ionized Calcium Matt (4.5-5.3) mg/dL Total Bilirubin (0.2-1.3) mg/dL AST (14-36) U/L ALT (4-34) U/L Alkaline Phosphatase (38-126) U/L Albumin (3.5-5.0) g/dL Microbiology - Last 24 Hours (Table) 08/30/20 03:56 Blood Culture - Preliminary Blood No Growth after 24 hours 08/28/20 12:04 Blood Culture Gram Stain - Final Blood Blood Culture - Final Staphylococcus aureus 08/28/20 12:19 Blood Culture Gram Stain - Final Blood Blood Culture - Final Staphylococcus aureus 08/29/20 05:20 Blood Culture Gram Stain - Preliminary Blood Blood Culture - Preliminary Presumptive Staph aureus 08/28/20 11:00 Gram Stain - Final Sputum Sputum Culture - Final 08/29/20 05:20 Blood Culture - Final Blood Assessment and Plan Assessment: 1. Sepsis with septic shock with multiorgan failure with metabolic encephalopathy, acute kidney injury, acute heart failure, acute respiratory failure. Status post sternal exploration and debridement on 08/27 Patient on nafcillin and clindamycin. culture positive for MSSA. Culture still positive currently, sternal debridement and packing was done today again. 2. Acute hypoxemic respiratory failure with pulmonary edema and pleural effusions secondary to CHF, patient is remain on mechanical ventilation doing weaning parameter see if she is weanable off the vent today. 3. Acute kidney injury secondary to ATN secondary to hypotension and cardiorenal syndrome. on hemodialysis , no treatment todya 4. Hyperkalemia secondary to potassium supplementation, losartan and acute kidney injury as well as severe acidosis. Consult with nephrology appreciated. Continue medical management. 5. Hyperglycemia: Continue to watch blood sugar on Accu-Chek sliding scales coverage only. 6. Metabolic encephalopathy secondary to sepsis, acute kidney injury, patient is sedated currently on mechanical ventilation. 7. Acute diastolic heart failure, EF 55%, mild AI and mild MR and mild TR, also complicated by severe protein calorie malnutrition. 8. Open sternal wound: Post debridement, still seen infectious disease and critical care, continue IV antibiotic continue wound care. Still treated for MSSA on nafcillin and clindamycin. No change might change dressing and packing tomorrow. 9. Anemia of chronic blood loss from recent surgery. Continue monitor closely and transfuse if hemoglobin 7 or below. On iron supplementations status post 1 unit PRBC on 06/24 10. Hypervolemic Hyponatremia. Status post DDAVP and dialysis s/p 2.5 L ultrafiltration on 08/26 11. CAD, with prior CABG performed on 08/10/2020, two-vessel, involving HOLLAND to LAD, and reverse greater saphenous vein to obtuse marginal coronary artery. held aspirin 325 mg daily, continue Plavix 75 mg daily, Toprol all 75 mg twice a day, 12. Moderate protein calorie malnutrition, with anasarca and hypotension. 13. History of pulmonary fibrosis. Continue duo nebs and albuterol 14. Asthma, mild intermittent. Continue ipratropium albuterol nebulizers 15. Hyperlipidemia. Continue statin daily 16. Hypertension. Currently hypotensive 17. GI prophylaxis. Pantoprazole 18. DVT prophylaxis: SCDs CODE STATUS: Full code.
--- NOTE | 2020-08-31 13:30 | PN ---
PROGRESS NOTE Patient is seen for followup for acute kidney injury, status post hemodialysis for a few treatments, currently with recovered renal function, good urine output and improvement in volume overload. Dialysis catheter was discontinued yesterday. Patient is on the vent. She did wake up last night and seemed to follow commands as well. She remains on the vent. Currently stable. The patient has good urine output, about 75- 100 mL an hour. She is in negative balance. PHYSICAL EXAMINATION: On examination today, blood pressure was 118/53, heart rate 91 per minute, patient is afebrile examination of the heart S1, S2. Examination of the lungs, bilateral breath sounds are heard. ABDOMEN: Soft, obese, distended. Exam of lower extremities shows improving edema. 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 Patient is sedated. LABS: Show hemoglobin 10.0, white cell count 15.1, sodium 145, potassium 3.2, chloride 102, BUN of 48, serum creatinine 1.0. Blood cultures remain positive as of 08/29/2020 with presumptive Staph. ASSESSMENT: 1. Acute kidney injury, acute tubular necrosis from sepsis, currently improved. Patient had been on short-term dialysis. Her catheter was discontinued yesterday. Serum creatinine is at 1.0. 2. Staph aureus bacteremia, MSSA. Source is the sternal wound. Dialysis catheter was also in place and it has now been removed. 3. Acute hypoxic respiratory failure secondary to sepsis, volume overload. 4. Severe volume overload, currently improved. Continue with current dose of Lasix. 24 hour urine output about 4.8 L. The patient is in -2.5 L balance. I will decrease the Lasix to 40 mg Q 12 hours. 5. Hypokalemia secondary to diuresis. Will replace. PLAN: Continue to diurese patient. Decrease dose to 40 mg Q 8 hours and repeat labs in a.m. MMODL / IJN: [id number] /
[2020-08-31] MEDS: FERROUS SULFATE ORAL ELIXIR 300 MG/5 ML CUP PO SCH (13:40)
[2020-08-31] MEDS: ASCORBIC ACID 500 MG TAB PO SCH (13:40)
[2020-08-31] MEDS: fentaNYL (PF) 50 MCG/ML 2 ML AMP IVP PRN ×2 (14:45→21:59)
--- NOTE | 2020-08-31 14:54 | P.PCN ---
Date of Procedure: 08/31/20 Preoperative Diagnosis: Open sternal wound Postoperative Diagnosis: Same Procedure(s) Performed: Dressing change Anesthesia: none Surgeon: Epifanio Olivera Estimated Blood Loss (ml): 0 IV fluids (ml): 0 Urine output (ml): 0 Pathology: none sent Condition: critical Disposition: ICU Description of Procedure: At the bedside in the ICU, sternal wound and packing were removed. There was some purulence on the packing deep near the heart. There was some purulence around the heart. This was irrigated and suctioned free. A new Kerlix soaked with normal saline was packed back into the wound. Was covered with ABDs.
[2020-08-31] MEDS: FUROSEMIDE 10 MG/ML 4 ML VIAL IV SCH (16:25)
--- NOTE | 2020-08-31 18:16 | PN ---
PROGRESS NOTE DATE OF SERVICE: 08/31/2020 REASON FOR FOLLOWUP: MSSA bacteremia secondary to sternal wound infection. INTERVAL HISTORY: The patient is currently afebrile. The patient is hemodynamically stable. The patient's FiO2 is currently stable at 40%. No significant purulent secretions in the ET or any diarrhea reported by the nursing staff. PHYSICAL EXAMINATION: Blood pressure 128/71, pulse of 96, temperature 97. She is 97% on 40% FiO2. General description is an elderly female lying in bed in no distress. RESPIRATORY SYSTEM: Unlabored breathing. Clear to auscultation anteriorly. HEART: S1, S2. Regular rate and rhythm. ABDOMEN: Soft. No tenderness. LABS: Hemoglobin is 10, white count 13.1, BUN of 48, creatinine 1.0. Blood culture from 08/30 so far negative. DIAGNOSTIC IMPRESSION AND PLAN: Patient with methicillin-susceptible Staphylococcus aeruginosa; source is sternal wound infection, status post surgical debridement. The patient is currently covered with nafcillin and clindamycin. If the blood cultures remain negative, she will get a PICC line for outpatient antibiotic therapy. Monitor clinical course closely. MMODL / IJN: [id number] /
[2020-08-31 18:30] LABS: Glucose,Whole Blood 131 mg/dL (75-99)
[2020-08-31] MEDS ORDERED: Potassium Replacement Protocol 1 EACH MISC MISCELLANE PRN (20:04)
[2020-08-31] MEDS: POTASSIUM CHLORIDE 20 MEQ in WATER FOR INJECTION 1 100ML.BAG IVPB SCH ×2 (20:13→22:26)
[2020-08-31] MEDS: SENNOSIDES-DOCUSATE SODIUM 1 EACH TAB PO SCH (21:09)
[2020-09-01 00:27] LABS: Glucose,Whole Blood 113 mg/dL (75-99)
[2020-09-01] MEDS: INSULIN ASPART (NovoLOG) 100 UNIT/ML VIAL SQ SCH ×4 (00:27→17:26)
[2020-09-01] MEDS: FUROSEMIDE 10 MG/ML 4 ML VIAL IV SCH ×2 (00:31→08:16)
[2020-09-01] MEDS: HEPARIN SODIUM,PORCINE 5,000 UNIT/ML 1 ML VIAL SQ SCH ×3 (00:31→16:06)
[2020-09-01] MEDS: NAFCILLIN 2 GM in DEXTROSE 5% IN WATER 100 ML IVPB SCH ×12 (00:32→20:03)
[2020-09-01] MEDS: CLINDAMYCIN 900 MG in DEXTROSE 5% IN WATER 50 ML IVPB SCH ×4 (00:32→08:15)
[2020-09-01] MEDS: SODIUM CHLORIDE 0.9% 1,000 ML IV SCH (01:31)
[2020-09-01] MEDS: ACETAMINOPHEN TAB 325 MG TAB PO PRN ×2 (01:45→21:57)
[2020-09-01 04:50] LABS: Anisocytosis Slight; Basophils % (A) 0 %; Eosinophils # (A) 0.3 k/uL (0-0.7); Eosinophils % (A) 2 %; HCT 28.7 % (34.0-46.0); HGB 9.5 gm/dL (11.4-16.0); Hypochromasia Moderate; Lymphocytes # (A) 1.8 k/uL (1.0-4.8); Lymphocytes % (A) 12 %; MCH 30.1 pg (25.0-35.0); MCHC 33.2 g/dL (31.0-37.0); MCV 90.7 fL (80.0-100.0); Mean Platelet Volume 11.1; Monocytes # (A) 0.5 k/uL (0-1.0); Monocytes % (A) 4 %; Neutrophils # (A) 12.2 k/uL (1.3-7.7); Neutrophils % (A) 82 %; Platelet Count 148 k/uL (150-450); Poikilocytosis Slight; RBC 3.16 m/uL (3.80-5.40); WBC 14.9 k/uL (3.8-10.6)
[2020-09-01 04:57] LABS: Albumin 2.3 g/dL (3.5-5.0); Calcium 7.3 mg/dL (8.4-10.2); Magnesium 2.2 mg/dL (1.6-2.3); Potassium 3.3 mmol/L (3.5-5.1); Total Bilirubin 4.6 mg/dL (0.2-1.3); Total Protein 6.4 g/dL (6.3-8.2)
[2020-09-01 05:24] LABS: ABG Base Excess 18.5 mmol/L; ABG PCO2 40 mmHg (35-45); ABG TCO2 41 mmol/L (19-24)
[2020-09-01 06:04] LABS: Glucose,Whole Blood 140 mg/dL (75-99)
[2020-09-01] MEDS ORDERED: Potassium Replacement Protocol 1 EACH MISC MISCELLANE PRN ×2 (06:18→15:41)
[2020-09-01] MEDS: POTASSIUM CHLORIDE 20 MEQ in WATER FOR INJECTION 1 100ML.BAG IVPB SCH ×2 (06:30→09:17)
[2020-09-01] MEDS ORDERED: SENNOSIDES-DOCUSATE SODIUM 1 EACH TAB PO PRN (06:48)
--- NOTE | 2020-09-01 07:15 | P.PN ---
Progress Note - Text Progress Note Date: 09/01/20 Plastic Surgery Patient evaluated in ICU. Dictation to follow. Will coordinate flap closure of sternal wound with [facility]. Chung Whittaker MD
[2020-09-01] MEDS: IPRATROPIUM-ALBUTEROL 3 ML NEB INHALATION PRN ×3 (07:55→20:29)
--- NOTE | 2020-09-01 08:07 | XR ---
EXAMINATION TYPE: XR chest 1V portable DATE OF EXAM: 09/01/2020 COMPARISON: 08/31/2020 HISTORY: Tube placement FINDINGS: There are bilateral pleural effusions with cardiomegaly and bibasilar infiltrate. There is a diffuse interstitial pattern. ET tube and NG tube stable. Postsurgical changes noted. Calcifications involvi ng the right shoulder stable IMPRESSION: 1. Diffuse pleural-parenchymal changes correlate for ARDS, pulmonary edema or diffuse pneumonia.
--- NOTE | 2020-09-01 08:15 | P.PN ---
Subjective Progress Note Date: 09/01/20 Principal diagnosis: Shortness of breath, acute diastolic heart failure, bilateral pleural effusion, lactic acidosis, hypercapnic respiratory failure requiring BiPAP followed by nv chanical ventilation, deep sternal wound infection with MSSA, acute kidney injury, acute hyperkalemia, hyponatremia, acute transaminitis, hypotension requiring vasopressors use, acute anemia. Previous medical history of coronary artery disease with left main stenosis status post 2 vessel CABG on 08/10/2020 with expected postoperative acute blood loss anemia, hypotension, and urinary retention as well as candidal stomatititus, hyponatremia, pulmonary fibrosis, asthma, hypertension, hyperlipidemia, previous tobacco dependence, obesity, osteoarthritis, cervical stenosis post anterior cervical disc decompression, discectomy and fusion, TIA as a child, family history of premature coronary artery disease. Paroxysmal Afib w/ RVR POD #5 sternal exploration with sternal debridement The patient was seen and examined at the bedside in the ICU. Remains sedated, mechanically ventilated. She was off sedation for most of the day yesterday, last night became hypertensive and taccypneic and was placed back on low-dose propofol. She is opening her eyes, does move both arms and legs minimally, does not follow commands although she will shake her head no when asked if in pain. T-max 101.5 in the last 24 hours, WBC 14.9, blood cultures continue to be positive for MSSA (most recent 08/31/20), sternal wound culture positive for MSSA. Sputum culture from 08/28 negative, positive for MSSA 08/26. Patient remains on IV clindamycin and nafcillin per infectious disease. Currently in NSR with HR in the high 90s to low 100s. Blood pressure stable, off Levophed. BUN 52, creatinine 0.91, AST 49, ALT 41. Hemoglobin 9.5 this morning. Tube feeds continue, patient tolerating well with minimal residual. Continuous on IV lasix per nephrology, decrease dose slightly yesterday. Sternal wound dressing changed with Dr. Olivera yesterday, will change again today. Plan is for daily dressing changes by cardiothoracic surgery with eventual flap closure by Dr. Whittaker. Family updated daily by phone. Objective - Vital Signs Vital signs: Vital Signs Temp 99.6 F 09/01/20 04:00 Pulse 96 09/01/20 06:00 Resp 26 H 09/01/20 06:00 BP 100/54 09/01/20 06:00 Pulse Ox 96 09/01/20 06:00 Intake & Output 08/31/20 09/01/20 09/01/20 18:59 06:59 18:59 Intake Total 1141 1241.348 Output Total 2375 1820 Balance -1234 -578.652 Weight 91.3 kg 85.3 kg Intake: IV 695 565 Clindamycin 900 mg In 100 50 Dextrose 5% in Water 50 ml @ 50 mls/hr IVPB Q8HR [facility] Rx#:[id number] Magnesium Sulfate-D5w Pmx 100 1 gm In Dextrose/Water 1 100ml.bag @ 100 mls/hr IVPB Q1H [facility] Rx#: [id number] Nafcillin 2 gm In 200 150 Dextrose 5% in Water 100 ml @ 50 mls/hr IVPB Q4HR [facility] Rx#:[id number] Potassium Chloride 20 meq 200 In Water For Injection 1 100ml.bag @ 50 mls/hr IVPB Q2H [facility] Rx#: [id number] Sodium Chloride 0.9% 1, 295 165 000 ml @ 20 mls/hr IV . Q24H [facility] Rx#:[id number] Intake, IV Titration 60.348 Amount propofoL 500 mg In Empty 60.348 Bag 1 bag @ Titrate IV . Q0M [facility] Rx#:[id number] Tube Feeding 356 496 Other 90 120 Output: Urine 2375 1820 Other: Voiding Method Indwelling Catheter Indwelling Catheter # Bowel Movements 2 1 ABP, PAP, CO, CI - Last Documented Arterial Blood Pressure 153/92 - Constitutional Constitutional Comment(s): Appears comfortable on the ventilator General appearance: Present: no acute distress - Respiratory Details: Lungs sounds diminished in the bases bilaterally. Respirations even, nonlabored on mechanical ventilation. Current vent settings FiO2 50%, tidal volume 400, respiratory rate 20, PEEP 8. 7.5 ET tube present, 22 at the lip. - Cardiovascular Details: S1, S2 present. Regular rate and rhythm, sinus rhythm with heart rate in the high 90s to low 100s. Palpable peripheral pulses bilaterally. Generalized edema present. Heart hugger, antiembolism stockings, SCDs present. Right femoral triple-lumen central line present. - Gastrointestinal Gastrointestinal Comment(s): Abdomen soft, nontender, nondistended. Active bowel sounds present 4 quadrants. OG tube present, tube feedings continue. Fecal management system in place, liquid brown stool present - Genitourinary Genitourinary Comment(s): Yu present draining yellow urine, 50-385 mL/hr, 4195 mL in the last 24 hours. - Integumentary Integumentary Comment(s): Anterior chest incision open, packed with sterile saline soaked kerlix and covered w/ ABD pad. Left lower extremity EVH site well approximated without redness or drainage, bruising present - Neurologic Neurologic Comment(s): Opens eyes, tracks. Moves bilateral upper and lower extremities minimally, not to command. Does withdraw to painful stimuli - Musculoskeletal Musculoskeletal: Present: generalized weakness - Psychiatric Psychiatric Comment(s): Does shake her head no when asked if in pain - Allied health notes Allied health notes reviewed: nursing - Labs CBC & Chem 7: 09/01/20 03:50 09/01/20 03:50 Labs: Abnormal Lab Results - Last 24 Hours (Table) 08/31/20 08/31/20 08/31/20 Range/Units 11:29 13:49 18:29 WBC (3.8-10.6) k/uL RBC (3.80-5.40) m/uL Hgb (11.4-16.0) gm/dL Hct (34.0-46.0) % RDW (11.5-15.5) % Plt Count (150-450) k/uL Neutrophils # (1.3-7.7) k/uL Sodium (137-145) mmol/L Potassium 3.1 L (3.5-5.1) mmol/L Carbon Dioxide (22-30) mmol/L BUN (7-17) mg/dL Glucose (74-99) mg/dL POC Glucose (mg/dL) 121 H 131 H (75-99) mg/dL Calcium (8.4-10.2) mg/dL Total Bilirubin (0.2-1.3) mg/dL AST (14-36) U/L ALT (4-34) U/L Alkaline Phosphatase (38-126) U/L Albumin (3.5-5.0) g/dL 08/31/20 09/01/20 09/01/20 Range/Units 18:52 00:25 03:50 WBC 14.9 H (3.8-10.6) k/uL RBC 3.16 L (3.80-5.40) m/uL Hgb 9.5 L (11.4-16.0) gm/dL Hct 28.7 L (34.0-46.0) % RDW 16.0 H (11.5-15.5) % Plt Count 148 L (150-450) k/uL Neutrophils # 12.2 H (1.3-7.7) k/uL Sodium (137-145) mmol/L Potassium 3.1 L (3.5-5.1) mmol/L Carbon Dioxide (22-30) mmol/L BUN (7-17) mg/dL Glucose (74-99) mg/dL POC Glucose (mg/dL) 113 H (75-99) mg/dL Calcium (8.4-10.2) mg/dL Total Bilirubin (0.2-1.3) mg/dL AST (14-36) U/L ALT (4-34) U/L Alkaline Phosphatase (38-126) U/L Albumin (3.5-5.0) g/dL 09/01/20 09/01/20 Range/Units 03:50 06:02 WBC (3.8-10.6) k/uL RBC (3.80-5.40) m/uL Hgb (11.4-16.0) gm/dL Hct (34.0-46.0) % RDW (11.5-15.5) % Plt Count (150-450) k/uL Neutrophils # (1.3-7.7) k/uL Sodium 146 H (137-145) mmol/L Potassium 3.3 L (3.5-5.1) mmol/L Carbon Dioxide 35 H (22-30) mmol/L BUN 52 H (7-17) mg/dL Glucose 135 H (74-99) mg/dL POC Glucose (mg/dL) 140 H (75-99) mg/dL Calcium 7.3 L (8.4-10.2) mg/dL Total Bilirubin 4.6 H (0.2-1.3) mg/dL AST 49 H (14-36) U/L ALT 41 H (4-34) U/L Alkaline Phosphatase 297 H (38-126) U/L Albumin 2.3 L (3.5-5.0) g/dL Microbiology - Last 24 Hours (Table) 08/29/20 05:20 Blood Culture Gram Stain - Final Blood Blood Culture - Final Staphylococcus aureus 08/28/20 12:04 Blood Culture Gram Stain - Final Blood Blood Culture - Final Staphylococcus aureus 08/30/20 03:56 Blood Culture - Preliminary Blood No Growth after 48 hours 08/31/20 03:33 Blood Culture - Final Blood - Imaging and Cardiology Chest x-ray: report reviewed, image reviewed Assessment and Plan Assessment: 1. Shortness of breath, acute diastolic heart failure, EF 55-60% on current TTE, bilateral pleural effusions 2. Lactic acidosis, septic shock, blood cultures positive for MSSA 3. Hypercapnic, hypoxic respiratory failure requiring BiPAP, with subsequent intubation and mechanical ventilation 4. Open sternal wound, surgically created, deep sternal wound infection with MSSA, S/P surgical exploration and debridement with daily dressing changes 5. Leukocytosis with bandemia, bandemia resolved, WBC trending down 6. Acute kidney injury, metabolic acidosis, metabolic acidosis resolved, kidney function returning to normal after receiving dialysis 7. Acute hyperkalemia, resolved 8. Acute transaminitis secondary to hypoperfusion, resolving 9. History of hypertension, hypotensive this admission requiring vasopressors, currently off vasopressors 10. Acute anemia, post transfusion PRBCs, on 11. Coronary artery disease with left main stenosis status post 2 vessel CABG on 08/10/2020 with expected postoperative acute blood loss anemia, hypotension, and urinary retention as well as candidal stomatititus 12. Hyponatremia, resolved 13. Pulmonary fibrosis, asthma 14. Hyperlipidemia, treated 15. Previous tobacco dependence 16. Obesity 17. Paroxysmal afib w/ RVR, atrial flutter, status post exclusion of the left atrial appendage using a 35 mm AtriClip, currently sinus rhythm Plan: 1. Ventilator management per pulmonary medicine. Wean to extubate when able 2. Nephrology following, avoid nephrotoxins, lasix per nephro 3. Infectious disease following, final blood cultures/sternal wound cultures positive for MSSA, continue antibiotics 4. Continue aspirin, Plavix, beta sisi therapy. Statin remains on hold secondary to transaminitis, will restart when able 5. No anticoagulation as patient will need further surgery for muscle flap closure 6. Will monitor daily labs and x-rays, ABGs. 7. Cardiothoracic surgery to change sternal dressing daily, RNs may reinforce but not to remove dressing, will eventually need a muscle flap closure by plastic surgeon. Dr. Whittaker consulted 8. GI/DVT prophylaxis 9. Continue tube feeding for nutrition 10. Will update family daily 11. More recommendations to follow Time with Patient: Greater than 30
--- NOTE | 2020-09-01 08:37 | PN ---
PROGRESS NOTE Mrs. Alvarenga is a 75-year-old female who recently underwent coronary artery bypass grafting on the first august, readmitted with symptoms of dyspnea and sternal wound dehiscence. She remains intubated. She is in sinus mechanism. Hemodynamically, she is stable. She is on no pressors. Her urine output is stable. She is tolerating feeding tube. She has been evaluated by Dr. Whittaker for evaluation regarding her sternal wound dehiscence. She continues to be at this time on aspirin once a day, Plavix 75 mg daily. She is on furosemide 40 mg IV q.8 hours, metoprolol tartrate 50 mg twice a day, Protonix. PHYSICAL EXAMINATION: Blood pressure 100/50 with the heart rate in the 90s. LUNGS: Clear anteriorly. HEART: Regular rate and rhythm. S1, S2. No S3. No rub. The sternum wound dressing noted. ABDOMEN: Soft, nontender. EXTREMITIES: No edema. LAB DATA: Lab data revealed BUN and creatinine 52 and 0.91. Potassium is 3.3. Her AST is 49, ALT of 41, which has improved compared to her admission. Her hemoglobin is 9.5. IMPRESSION: 1. Status post coronary artery bypass grafting. 2. Sternal wound dehiscence. 3. Respiratory failure. 4. Acute renal injury, improving. 5. Hypertension. 6. Hyperlipidemia. 7. Abnormal liver function tests, improving. 8. History of interstitial lung disease. RECOMMENDATION: We will continue present therapy. Continue to follow her blood pressure and her renal function. Re-initiate LINDSEY inhibitor and follow her liver function tests to re-initiate statin. In the meantime, will continue the rest of medical regimen. MMODL / IJN: [id number] /
[2020-09-01 08:49] LABS: ABG PH 7.61 (7.35-7.45); ABG PO2 58 mmHg (83-108)
[2020-09-01 08:50] LABS: ABG HCO3 40 mmol/L (21-25)
[2020-09-01] MEDS: METOPROLOL TARTRATE 50 MG TAB PO SCH ×2 (09:17→21:57)
[2020-09-01] MEDS: acetaZOLAMIDE 250 MG TAB PO SCH (09:17)
[2020-09-01] MEDS: ASPIRIN 325 MG TAB PO SCH (09:17)
[2020-09-01] MEDS: PANTOPRAZOLE 40 MG/10 ML VIAL IVP SCH (09:18)
[2020-09-01] MEDS: CLOPIDOGREL 75 MG TAB PO SCH (09:18)
[2020-09-01] MEDS: CHLORHEXIDINE GLUCONATE 15 ML CUP MUCOUS MEM SCH ×2 (09:18→21:57)
[2020-09-01] MEDS: DRY MOUTH SPRAY 44.3 SPRAY/44.3 ML SPRAY MUCOUS MEM SCH ×4 (09:30→21:58)
--- NOTE | 2020-09-01 10:38 | P.PN ---
Subjective Progress Note Date: 09/01/20 Principal diagnosis: Respiratory failure, sternal wound infection. Reevaluated today on 08/28/2020, patient remains in the ICU, intubated and mechanically ventilated. Her assist-control rate is 20, volume is 450 FiO2 is 50% PEEP was at 5 and I increased it up to 8. ABG showed a pO2 of 57 pCO2 of 30 pH of 7.53. O2 saturation on the monitor is 96%. Patient remains on norepine phrine at 0.07 mcg/kg/m, she is also on propofol at 65 mcg/kg/m. Patient is on enteral feeding. Remains on cefepime and daptomycin for her positive blood cultures/MSSA. Patient is also on Lasix at 80 mg IV push every 24 hours. Her urine output has been good. And her chest x-ray continues to show mild congestive heart failure changes. Patient has leukocytosis with WBC count 24.3, electrolytes are normal BUN is 46 creatinine 0.90. Liver enzymes are trending down slowly Patient was reevaluated today on 08/29/2020, remains intubated and mechanically ventilated. She is on assist control rate of 20 tidal volume is 450 FiO2 is 50% and PEEP of 8. ABG showed a pO2 of 56 pCO2 of 35 pH of 7.50 however her O2 saturation on the monitor is 99%. Patient remains on norepinephrine at 0.05 mcg/kg/m, he is on propofol at 70 mcg/kg/m, she is on Lasix 80 mg IV push daily, with good urine output. IV fluid mostly at KVO. Antibiotics garzon she is on cefazolin and clindamycin. Patient had MSSA in the blood and in the sternal wound. Chest x-ray continues to show evidence of pulmonary edema, and now she seems to be developing some consolidation in the right upper lobe medially. Her sternum remains open, decision regarding sternal closure will be made in the next 24-48 hours by thoracic surgery. Patient continues to have leukocytosis with WBC count of 24.2 hemoglobin is 10.6, basic metabolic profile is normal renal profile is normal not requiring any further dialysis, and she has good uri ne output responding well to diuretics. Liver enzymes seem to be trending down 08/30/2020 the patient remains intubated on a mechanical ventilator. This morning, she has an assist-control at the rate of 20 with tidal volume of 450 and the flow of 70 with a FiO2 of 50% with a PEEP of 8. The morning blood gases from today showed a pH of 7.55, and the pCO2 is a 35 with a pO2 of 72. Necessity ventilator changes were done. Peak airway pressure was 37. Static pressure was 32. Chest x-ray still showing diffuse bilateral pulmonary infiltrates consistent with pneumonia although possibility of an acute lung injury/ARDS cannot be completely excluded. ET tube is in a good location. The patient this morning is sedated with propofol which is running at 50 mcg/kg per minute. Sedation holiday was given this morning to evaluate her mental status. I was told yesterday that the patient did have some diminished level of consciousness once she was off the sedation. Nevertheless she was placed on sedation again to maintain synchrony with the mechanical ventilator. She is septic with staff aureus, MSSA has been cultured in her sputum, and her blood and in her sternal wound. Her current antibiotic coverage including a combination of nafcillin and clindamycin. She is afebrile. Sternal wound is being monitored by the cardiothoracic surgery team. Daily dressing changes are being done. There is still output which is purulent according to the nursing staff. Pressors and the patient is currently on norepinephrine running at 0.04 mcg/kg per minute. Renal function is improving and the creatinine is down to 0.78. The white cell count is at 19.8 with hemoglobin of 10.2 and a platelet count of 90. Liver function tests continue to improve with an AST of 68, ALT of 77 and the last blood culture was taken from 08/29/2020 was again positive for gram-positive bacteria most likely MSSA. The patient has orogastric tube in place and she is receiving vital high protein at a rate of 23 mL an hour. This is at goal for now. No abdominal distention. No increased residuals for now. She is afebrile. Progress note dated 08/31/2020. This is a 75-year-old female was admitted to the hospital on August 22, she came in for a sternal wound infection, and worsening respiratory status with heart failure. Unfortunately, she developed severe hypoxemic respiratory failure and required intubation on August 25. She was discovered to have a sternal wound infection and went to the operating room for debridement, on August 27. Microbiology is positive for methicillin sensitive staph aureus, and she remains on nafcillin and clindamycin. This patient initially had a two- vessel bypass grafting on 08/10/2020, and was discharged on 08/19/2020. Currently, the patient remains on the volume assist control mode, rate is 20, tidal volume is 400, FiO2 40%, and PEEP of 8. Blood gases show a PaO2 of 65, a PaCO2 39, and a pH is 7.58. His blood gases consistent with a relative hypoxemia, and a severe metabolic alkalosis. Currently, the norepinephrine has been weaned off. She remains on saline at 25 mL an hour, and she is currently not on any sedation. She's getting vital high protein at 23 mL an hour with a goal of 28 mL an hour. Today, regarding do a spontaneous breathing trial, on pressor support of 15, CPAP of 5. If the patient shows any signs of deterioration, such as tachycardia, tachypnea, hypertension, diaphoresis, higher respiratory rates, and/or lower tidal volumes, the patient will be switched back to the volume assist control mode with the. Progress note dated 09/01/2020. 75-year-old female admitted back on August 22. She came into the hospital with a sternal wound infection. In addition, she had worsening respiratory status, with heart failure. She developed reinaldo hypoxemic respiratory failure and required intubation on August 25. At that time, she was discovered to have a sternal wound infection, secondary to staph aureus, and went to the operating room for debridement. This was on August 27. Microbiology is positive for methicillin sensitive staph aureus, and she remains on nafcillin and clindamycin. The patient had a two-vessel bypass grafting done on August 10, and was discharged on August 19. Currently, she remains on the volume assist control modality, the rate of 20, tidal volume 400, FiO2 50%, and PEEP of 5. This morning's blood gases, show a PaO2 of 58, a PaCO2 of 40, and a pH is 7.61. These arterial blood gases are consistent with hypoxemia, and a severe metabolic alkalosis. The FiO2 was increased from 40-50%. Currently, she is on propofol at 20 mcg/kg/m, saline at 15 mL an hour, and vital high protein at 54 mL an hour, which is goal. Today, we are going to ensure that her potassium exceeds 4.5, DC her Lasix, and add Diamox 500 mg a day. We also increased the FiO2 earlier this morning to 50%. She will not wean with his profound metabolic alkalosis, and likely, we will hypoventilate and retain carbon dioxide, to balance out her pH. Hence, it's imperative that we treat the alkalosis aggressively. Objective - Vital Signs Vital signs: Vital Signs Temp 98.9 F 09/01/20 08:00 Pulse 99 09/01/20 09:00 Resp 32 H 09/01/20 09:00 BP 102/50 09/01/20 09:00 Pulse Ox 95 09/01/20 09:00 Intake & Output 08/31/20 09/01/20 09/01/20 18:59 06:59 18:59 Intake Total 1141 1241.348 510 Output Total 2375 1820 110 Balance -1234 -578.652 400 Weight 91.3 kg 85.3 kg Intake: IV 695 565 190 Clindamycin 900 mg In 100 50 50 Dextrose 5% in Water 50 ml @ 50 mls/hr IVPB Q8HR [facility] Rx#:[id number] Magnesium Sulfate-D5w Pmx 100 1 gm In Dextrose/Water 1 100ml.bag @ 100 mls/hr IVPB Q1H [facility] Rx#: [id number] Nafcillin 2 gm In 200 150 100 Dextrose 5% in Water 100 ml @ 50 mls/hr IVPB Q4HR [facility] Rx#:[id number] Potassium Chloride 20 meq 200 In Water For Injection 1 100ml.bag @ 50 mls/hr IVPB Q2H [facility] Rx#: [id number] Sodium Chloride 0.9% 1, 295 165 40 000 ml @ 20 mls/hr IV . Q24H [facility] Rx#:[id number] Intake, IV Titration 60.348 122 Amount Potassium Chloride 20 meq 100 In Water For Injection 1 100ml.bag @ 50 mls/hr IVPB Q2H [facility] Rx#: [id number] propofoL 500 mg In Empty 60.348 Bag 1 bag @ Titrate IV . Q0M [facility] Rx#:[id number] propofoL 500 mg In Empty 22 Bag 1 bag @ Titrate IV . Q0M [facility] Rx#:[id number] Tube Feeding 356 496 108 Other 90 120 90 Output: Urine 2375 1820 110 Other: Voiding Method Indwelling Catheter Indwelling Catheter # Bowel Movements 2 1 ABP, PAP, CO, CI - Last Documented Arterial Blood Pressure 153/92 - Exam No acute distress, currently off sedation, not particularly responsive, but stable. HEENT examination is grossly unremarkable. Mucous membranes are moist. There is an orally placed endotracheal tube, and an orally placed nasogastric tube. Neck supple. Full range of motion. No adenopathy thyromegaly or neck vein distention. Cardiovascular examination reveals regular rhythm rate. S1-S2 normal. No S3 or S4. A soft systolic murmur is noted, grade 2/6. Heart rate is 99 bpm. Lungs reveal scattered rhonchi and crackles. Breath sounds equal bilaterally. No wheezes are appreciated. Breath sounds are diminished throughout. Abdomen soft bowel sounds are heard. No masses or tenderness. Extremities are intact. No cyanosis clubbing or edema. Skin reveals a dressing over the sternal wound infection.. Neurologic examination reveals a poorly responsive white female. - Labs CBC & Chem 7: 09/01/20 03:50 09/01/20 03:50 Labs: Abnormal Lab Results - Last 24 Hours (Table) 08/31/20 08/31/20 08/31/20 Range/Units 11:29 13:49 18:29 WBC (3.8-10.6) k/uL RBC (3.80-5.40) m/uL Hgb (11.4-16.0) gm/dL Hct (34.0-46.0) % RDW (11.5-15.5) % Plt Count (150-450) k/uL Neutrophils # (1.3-7.7) k/uL ABG pH (7.35-7.45) ABG pO2 (83-108) mmHg ABG HCO3 (21-25) mmol/L ABG Total CO2 (19-24) mmol/L ABG O2 Saturation (94-97) % Sodium (137-145) mmol/L Potassium 3.1 L (3.5-5.1) mmol/L Carbon Dioxide (22-30) mmol/L BUN (7-17) mg/dL Glucose (74-99) mg/dL POC Glucose (mg/dL) 121 H 131 H (75-99) mg/dL Calcium (8.4-10.2) mg/dL Total Bilirubin (0.2-1.3) mg/dL AST (14-36) U/L ALT (4-34) U/L Alkaline Phosphatase (38-126) U/L Albumin (3.5-5.0) g/dL 08/31/20 09/01/20 09/01/20 Range/Units 18:52 00:25 03:50 WBC 14.9 H (3.8-10.6) k/uL RBC 3.16 L (3.80-5.40) m/uL Hgb 9.5 L (11.4-16.0) gm/dL Hct 28.7 L (34.0-46.0) % RDW 16.0 H (11.5-15.5) % Plt Count 148 L (150-450) k/uL Neutrophils # 12.2 H (1.3-7.7) k/uL ABG pH (7.35-7.45) ABG pO2 (83-108) mmHg ABG HCO3 (21-25) mmol/L ABG Total CO2 (19-24) mmol/L ABG O2 Saturation (94-97) % Sodium (137-145) mmol/L Potassium 3.1 L (3.5-5.1) mmol/L Carbon Dioxide (22-30) mmol/L BUN (7-17) mg/dL Glucose (74-99) mg/dL POC Glucose (mg/dL) 113 H (75-99) mg/dL Calcium (8.4-10.2) mg/dL Total Bilirubin (0.2-1.3) mg/dL AST (14-36) U/L ALT (4-34) U/L Alkaline Phosphatase (38-126) U/L Albumin (3.5-5.0) g/dL 09/01/20 09/01/20 09/01/20 Range/Units 03:50 04:49 06:02 WBC (3.8-10.6) k/uL RBC (3.80-5.40) m/uL Hgb (11.4-16.0) gm/dL Hct (34.0-46.0) % RDW (11.5-15.5) % Plt Count (150-450) k/uL Neutrophils # (1.3-7.7) k/uL ABG pH 7.61 H* (7.35-7.45) ABG pO2 58 L* (83-108) mmHg ABG HCO3 40 H* (21-25) mmol/L ABG Total CO2 41 H (19-24) mmol/L ABG O2 Saturation 93.0 L (94-97) % Sodium 146 H (137-145) mmol/L Potassium 3.3 L (3.5-5.1) mmol/L Carbon Dioxide 35 H (22-30) mmol/L BUN 52 H (7-17) mg/dL Glucose 135 H (74-99) mg/dL POC Glucose (mg/dL) 140 H (75-99) mg/dL Calcium 7.3 L (8.4-10.2) mg/dL Total Bilirubin 4.6 H (0.2-1.3) mg/dL AST 49 H (14-36) U/L ALT 41 H (4-34) U/L Alkaline Phosphatase 297 H (38-126) U/L Albumin 2.3 L (3.5-5.0) g/dL Microbiology - Last 24 Hours (Table) 08/31/20 03:33 Blood Culture Gram Stain - Preliminary Blood 08/29/20 05:20 Blood Culture Gram Stain - Final Blood Blood Culture - Final Staphylococcus aureus 08/28/20 12:04 Blood Culture Gram Stain - Final Blood Blood Culture - Final Staphylococcus aureus 08/30/20 03:56 Blood Culture - Preliminary Blood No Growth after 48 hours 08/31/20 03:33 Blood Culture - Final Blood Assessment and Plan Assessment: Acute hypoxemic and hypercapnic respiratory failure, secondary to incisional wound infection, with methicillin sensitive staph aureus, as well as pneumonia, and bilateral pleural effusions. Status post readmission on August 22, and intubation for respiratory failure on August 25. Sepsis, secondary to sternal wound infection, caused by methicillin sensitive staph aureus, with bacteremia. Septic shock, secondary to sternal wound infection. Acute kidney injury, requiring a brief period of hemodialysis. Acute metabolic acidosis, secondary to acute kidney injury. Acute diastolic CHF with bilateral pleural effusions. History of hypertension. History of cervical stenosis. Primary history of tobacco use. Mild pulmonary fibrosis/interstitial lung disease. Status post sternal exploration with sternal debridement, August 27. Recent prior history of two-vessel bypass grafting, on August 10, with discharge on August 19. Plan: Plan dated 09/01/2020. The patient's Lasix will be discontinued. The patient's FiO2 was increased from 40% up to 50%. The patient has been seen by the plastic surgeon for possible surgical intervention. The patient will have her potassium replaced, with a goal of getting her potassium level above 4.5. In addition, we had Diamox 500 mg a day. The patient will not wean with his severe metabolic alkalosis. The patient is being nourished with vital high protein at goal, which is 54 mL an hour. The patient remains on propofol at 20 mcg/kg/m. White count is 14.9, hemoglobin 9.5, hematocrit 28.7, and platelet count 148,000. Sodium is 146, potassium 3.3, chlorides 101, CO2 35, anion gap 10, BUN 52, and creatinine 0.91. Albumin is 2.3. Chest x-ray shows diffuse pleural parenchymal changes which could be consistent with acute respiratory distress syndrome, pulmonary edema, or diffuse pneumonia. We will continue to follow closely, and make r ecommendations were appropriate. Prognosis is guarded. Time with Patient: Greater than 30
--- NOTE | 2020-09-01 10:58 | P.PN ---
Subjective This is a 75-year-old female patient of Dr. Rich Avila, Dr. Sloan and Dr. Guadalupe. She has a past medical history significant for hypertension, hyperlipidemia, pulmonary fibrosis, asthma, obesity, remote history of tobacco dependence with smoking 32 years ago, osteoarthritis, cervical stenosis post anterior cervical decompression, discectomy and fusion, TIA as a child at age 11 and family history of premature coronary artery disease with her father being diagnosed in his early 50s. Recently, the patient has been experiencing episodes of shortness of breath over the past 6 months with just minimal activity. She also complained of some lower extremity swelling which did resolve with some diuresis. she underwent a stress test which showed anterior wall ischemia with small reversible defect. a 2-D echocardiogram which showed mild aortic valve insufficiency, mild mitral valve regurgitation, mild tricuspid valve regurgitation and left ventricular function to be normal with an ejection fraction of 55%. Subsequently she underwent an elective heart catheterization on 07/27/2020 which demonstrated a left main stenosis with QING with a calculation of 2.6 mm, a 40% stenosis to her mid left anterior descending coronary artery and a 30% stenosis to her right coronary artery. Due to the patient's symptoms and findings on her heart catheterization of left main stenosis a consult was placed to Dr. Sethi from cardiothoracic surgery for further evaluation and treatment recommendations. During her preoperative workup her serum sodium level was found to be 120 and was admitted prior to surgery for treatment of hyponatremia. Last admission On 08/06/2020-08/19/20 the patient was admitted to the hospital for treatment of her hyponatremia, and once her hyponatremia was resolved on 08/10/2020, asubsequently taken to the operating room where Dr. Sethi performed a double vessel coronary artery bypass grafting surgery using the left internal mammary artery to left anterior setting coronary artery, a reverse greater saphenous vein graft from the aorta to the first obtuse marginal coronary artery, endoscopic harvesting of the left greater saphenous vein from the groin Upon completion of the surgery the patient was transferred to the intensive care unit where she was recovered, monitored hemodynamically and where she progressed cardiac rehabilitation phase Her oxygen was titrated down, she continued to work with physical/occupational therapy and cardiac rehabilitation, she was tolerating an oral diet, her pain was well controlled without narcotics and she was ready to be discharged home with [facility] on postoperative day #9. Did not require home O2 on last admission however she required new m edication changes including diuretics during that last admission. Patient comes in in worsening shortness of breath anasarca, no chest pain, has BARKER, edma without leg pain new medications from last visit was compliant, requiring lipitor 75bid, tolvaptan. meotprolol 75 bid plavix, lasix 40 mg daily losartain 25 asa 325, ferrous sulfate and fluconazole. patient comes in now for CHF, anarsarc ely pleural effusion, consult with dr Sethi. and cardiology, if okay will be cardiothoracic surgeon can also perform the thoracentesis, however with hypoxemia, also have requested Dr. Gamboa's services. Patient has a hemoglobin of 7.0 on and 3, platelet count of 305, hemoglobin right to admission was 8.0 denies any Hemoccult stools, creatinine was 1.60 from a previous of 0.9 blood pressure is in the low 90s systolic, pulse ox, 90 on 4 L nasal cannula, patient was not discharged with home O2 during her last admission 08/24: A-Team was called for mental status changes. Patient was found to have a blood pressure 99/65, heart rate of 85 and pulse ox of 96% on a nonrebreather with respiratory rate of 32. Patient was transferred to the ICU. She was started on vancomycin and cefepime. Patient has been seen by cardiology with plan to continue vasopressor support, patient may need pleurocentesis. Stat echocardiogram was done to rule out pericardial effusion or tamponade. Patient has been seen by nephrology for acute kidney injury secondary to ATN secondary to hypotension and cardiorenal syndrome. Patient is currently on bicarb drip, status post Lasix 80 mg IV once. Renal replacement therapy to be initiated immediately. Vascular consult in place for a dialysis catheter placement and start hemodialysis today with second treatment tomorrow. Sternal wound was producing thick yellowish brown fluid, was opened approximately 2 cm and deep culture was taken, packed and covered with 4 x 4 dressing. She is requiring vasopressors. She is hypothermic and warming blanket is in place.Patient had minimal output yesterday and none today. She is status post 2.5 L of fluids. 08/25 patient was examined in the ICU. She was able to maintain oxygenation on BiPAP overnight switch to high flow 15 m this morning. Patient did have episodes of agitation last night and was started on Seroquel. She did receive a dose of Seroquel prior to admission and was found to be resting comfortably. Patient is off pressors and bicarbonate drip and metabolic acidosis seemed to have cleared off. On evaluation of patient's lab, WBC is 14.3, hemoglobin 6.5 platelet 208 ABG this morning has a pH of 7.47 CO2 74. Bicarb 29. Sodium has improved to 126 chloride 96 BUN 43 creatinine 2.79 lactic acid has improved to 2.9 calcium 7 liver enzymes elevated AST at 2874 ALT 1469 alkaline phosphatase 192 CRP 356 BNP 13,000 UA does suggest some infection with WBC of 88 hyaline casts 33 protein 2+ urine blood trace nitrite negative leukocyte Estrace negative. Wound cultures positive for presumptive staph aureus. Patient's blood culture from yesterday are positive with presumptive staph aureus. Repeat blood cultures ordered. Patient received 1 unit of PRBCs for low hemoglobin. Urine output has improved to 20-40 mL's per hour. Patient did receive a dose of DDAVP for hyponatremia. Normal saline is running at 50 mL per hour. Did receive hemodialysis today with 2 L ultrafiltration. Patient was also noted to be in A. fib with RVR intermittently and her dose of Lopressor was increased to 25 mg every 8 hours. Continue daptomycin and cefepime for antibiotic coverage. Monitor patient's for QTC prolongation well on Seroquel. Patient has significant dehiscence of wound and may need I&D 08/27 she remains in the ICU, intubated and mechanically ventilated. Patient is going to the OR for debridement today. Patient remains intubated on 50% FiO2 and PEEP of 5, assist control rate of 20volume 450. Continues to require Levophed at 11mcg/ hr . Blood clots and culture positive for MSSA. Urine output is 50-60 mL per hour. Patient continues to be on sedation from propofol at 50 max per KG permanent. IV fluids at KVO. Patient continues to have good urine output after a dose of 80 mg of IV Lasix today. Vision tolerated 2.5 L ultrafiltration yesterday and is started on hemodialysis on August 24. No holiday sedation today. Plan to continue Lasix 80 IV once daily and holding hemodialysis. Anticoagulation held for debridement. 08/28 patient remains in the ICU. Did have sternal Exploration and debridement yesterday remains sedated on propofol. Patient continues to have high temp of 101.6, to 233 tachycardic 111 blood pressure 106/51 oxygen saturation 95% on 50% FiO2. Labs suggest a leukocytosis of 24.3 hemoglobin stable at 10.7 platelet count has dipped dropped to 78, he really suggest a pH of 7.53 pCO2 30 PaO2 57, chloride of 110 potassium 3.5 and anion gap of 6 BUN 46 creatinine 0.9 calcium 7.8 ALT 3:15 alkaline phosphatase 312 AST 112 blood cultures from 08/26 positive for staph aureus. Urine output 1.2 L in 24 hours Repeat blood cultures sent today. Patient continues to be normal sinus rhythm not currently on any anticoagulation at the possibility of going for another debridement. Patient's continues to be on levo fed and still stays intubated. Continue IV Lasix. Patient initiated on IV Lasix 08/29: Patient remain in the ICU, remain on mechanical ventilation, sternal exploration and debridement was done and still have packing area within open wound at this point. Oxygenation is better patient is not 3 to be off vent at this point. Her urine output has been good and hemodynamically stable. 08/30: Patient still on mechanical ventilation, his sternum 1 and was changed today still have significant amount of infection and pus was packed still open. Patient remain on nafcillin and Moni mycin. Still having positive blood culture. 08/31: Patient is more awake today doing trial of weaning parameter try to get patient off the respirator, her incision and infection along the sternum is no change still have packing on still on IV antibiotics. Hemodynamically is more stable. 09/01: Patient evaluated in the ICU, continues on mechanical ventilation. Wound packing was removed yesterday, purulence was noted on the packing, deep near the heart and purulence around the heart. She continues on IV clindamycin and nafcillin. Patient was taken off sedation yesterday for a trial of weaning, but she became hypertensive and tachypneic so she is placed back on sedation. Objective - Vital Signs Vital signs: Vital Signs Temp 98.9 F 09/01/20 08:00 Pulse 99 09/01/20 09:00 Resp 32 H 09/01/20 09:00 BP 102/50 09/01/20 09:00 Pulse Ox 95 09/01/20 09:00 Intake & Output 08/31/20 09/01/20 09/01/20 18:59 06:59 18:59 Intake Total 1141 1241.348 510 Output Total 2375 1820 110 Balance -1234 -578.652 400 Weight 91.3 kg 85.3 kg Intake: IV 695 565 190 Clindamycin 900 mg In 100 50 50 Dextrose 5% in Water 50 ml @ 50 mls/hr IVPB Q8HR [facility]OR[facility] Rx#:[id number] Magnesium Sulfate-D5w Pmx 100 1 gm In Dextrose/Water 1 100ml.bag @ 100 mls/hr IVPB Q1H [facility] Rx#: [id number] Nafcillin 2 gm In 200 150 100 Dextrose 5% in Water 100 ml @ 50 mls/hr IVPB Q4HR [facility]ORIBIO Rx#:[id number] Potassium Chloride 20 meq 200 In Water For Injection 1 100ml.bag @ 50 mls/hr IVPB Q2H [facility] Rx#: [id number] Sodium Chloride 0.9% 1, 295 165 40 000 ml @ 20 mls/hr IV . Q24H [facility] Rx#:[id number] Intake, IV Titration 60.348 122 Amount Potassium Chloride 20 meq 100 In Water For Injection 1 100ml.bag @ 50 mls/hr IVPB Q2H [facility] Rx#: [id number] propofoL 500 mg In Empty 60.348 Bag 1 bag @ Titrate IV . Q0M [facility] Rx#:[id number] propofoL 500 mg In Empty 22 Bag 1 bag @ Titrate IV . Q0M [facility]OR[facility] Rx#:[id number] Tube Feeding 356 496 108 Other 90 120 90 Output: Urine 2375 1820 110 Other: Voiding Method Indwelling Catheter Indwelling Catheter # Bowel Movements 2 1 ABP, PAP, CO, CI - Last Documented Arterial Blood Pressure 153/92 - Exam Gen: This is a 75-year-old female. Intubated She is in the ICU. HEENT: Head is atraumatic, normocephalic. Pupils equal, round. Sclerae is anicteric. Patient is intubated, central incision dressed NECK: Supple. No JVD. No lymphadenopathy. No thyromegaly. LUNGS: Diminished. No wheezes or rhonchi. No intercostal retractions. HEART: Regular rate and rhythm. 2/6 systolic murmur. Dressing in place to sternal wound with reported purulent drainage. ABDOMEN: Soft. Bowel sounds are present. No masses. No tenderness. EXTREMITIES: 2+ bilat pitting edema. No calf tenderness. NEUROLOGICAL: Patient is sleeping - Labs CBC & Chem 7: 09/01/20 03:50 09/01/20 03:50 Labs: Abnormal Lab Results - Last 24 Hours (Table) 08/31/20 08/31/20 08/31/20 Range/Units 11:29 13:49 18:29 WBC (3.8-10.6) k/uL RBC (3.80-5.40) m/uL Hgb (11.4-16.0) gm/dL Hct (34.0-46.0) % RDW (11.5-15.5) % Plt Count (150-450) k/uL Neutrophils # (1.3-7.7) k/uL ABG pH (7.35-7.45) ABG pO2 (83-108) mmHg ABG HCO3 (21-25) mmol/L ABG Total CO2 (19-24) mmol/L ABG O2 Saturation (94-97) % Sodium (137-145) mmol/L Potassium 3.1 L (3.5-5.1) mmol/L Carbon Dioxide (22-30) mmol/L BUN (7-17) mg/dL Glucose (74-99) mg/dL POC Glucose (mg/dL) 121 H 131 H (75-99) mg/dL Calcium (8.4-10.2) mg/dL Total Bilirubin (0.2-1.3) mg/dL AST (14-36) U/L ALT (4-34) U/L Alkaline Phosphatase (38-126) U/L Albumin (3.5-5.0) g/dL 08/31/20 09/01/20 09/01/20 Range/Units 18:52 00:25 03:50 WBC 14.9 H (3.8-10.6) k/uL RBC 3.16 L (3.80-5.40) m/uL Hgb 9.5 L (11.4-16.0) gm/dL Hct 28.7 L (34.0-46.0) % RDW 16.0 H (11.5-15.5) % Plt Count 148 L (150-450) k/uL Neutrophils # 12.2 H (1.3-7.7) k/uL ABG pH (7.35-7.45) ABG pO2 (83-108) mmHg ABG HCO3 (21-25) mmol/L ABG Total CO2 (19-24) mmol/L ABG O2 Saturation (94-97) % Sodium (137-145) mmol/L Potassium 3.1 L (3.5-5.1) mmol/L Carbon Dioxide (22-30) mmol/L BUN (7-17) mg/dL Glucose (74-99) mg/dL POC Glucose (mg/dL) 113 H (75-99) mg/dL Calcium (8.4-10.2) mg/dL Total Bilirubin (0.2-1.3) mg/dL AST (14-36) U/L ALT (4-34) U/L Alkaline Phosphatase (38-126) U/L Albumin (3.5-5.0) g/dL 09/01/20 09/01/20 09/01/20 Range/Units 03:50 04:49 06:02 WBC (3.8-10.6) k/uL RBC (3.80-5.40) m/uL Hgb (11.4-16.0) gm/dL Hct (34.0-46.0) % RDW (11.5-15.5) % Plt Count (150-450) k/uL Neutrophils # (1.3-7.7) k/uL ABG pH 7.61 H* (7.35-7.45) ABG pO2 58 L* (83-108) mmHg ABG HCO3 40 H* (21-25) mmol/L ABG Total CO2 41 H (19-24) mmol/L ABG O2 Saturation 93.0 L (94-97) % Sodium 146 H (137-145) mmol/L Potassium 3.3 L (3.5-5.1) mmol/L Carbon Dioxide 35 H (22-30) mmol/L BUN 52 H (7-17) mg/dL Glucose 135 H (74-99) mg/dL POC Glucose (mg/dL) 140 H (75-99) mg/dL Calcium 7.3 L (8.4-10.2) mg/dL Total Bilirubin 4.6 H (0.2-1.3) mg/dL AST 49 H (14-36) U/L ALT 41 H (4-34) U/L Alkaline Phosphatase 297 H (38-126) U/L Albumin 2.3 L (3.5-5.0) g/dL Microbiology - Last 24 Hours (Table) 08/31/20 03:33 Blood Culture Gram Stain - Preliminary Blood 08/29/20 05:20 Blood Culture Gram Stain - Final Blood Blood Culture - Final Staphylococcus aureus 08/28/20 12:04 Blood Culture Gram Stain - Final Blood Blood Culture - Final Staphylococcus aureus 08/30/20 03:56 Blood Culture - Preliminary Blood No Growth after 48 hours 08/31/20 03:33 Blood Culture - Final Blood Assessment and Plan Plan: 1. Sepsis with septic shock with multiorgan failure with metabolic encephalopathy, acute kidney injury, acute heart failure, acute respiratory failure. Status post sternal exploration and debridement on 08/27 Patient on nafcillin and clindamycin. culture positive for MSSA. Culture still positive currently, sternal debridement and packing was done yesterday 2. Acute hypoxemic respiratory failure with pulmonary edema and pleural effusions secondary to CHF, patient is remain on mechanical ventilation, failed trial of weaning. 3. Acute kidney injury secondary to ATN secondary to hypotension and cardior enal syndrome. on hemodialysis. 4. Hyperkalemia secondary to potassium supplementation, losartan and acute kidney injury as well as severe acidosis. Consult with nephrology appreciated. Continue medical management. 5. Hyperglycemia: Continue to watch blood sugar on Accu-Chek sliding scales c overage only. 6. Metabolic encephalopathy secondary to sepsis, acute kidney injury, patient is sedated currently on mechanical ventilation. 7. Acute diastolic heart failure, EF 55%, mild AI and mild MR and mild TR, also complicated by severe protein calorie malnutrition. 8. Open sternal wound: Post debridement, still seen infectious disease and critical care, continue IV antibiotic continue wound care. Still treated for MSSA on nafcillin and clindamycin. No change might change dressing and packing tomorrow. 9. Anemia of chronic blood loss from recent surgery. Continue monitor closely and transfuse if hemoglobin 7 or below. On iron supplementations status post 1 unit PRBC on 06/24 10. Hypervolemic Hyponatremia. Status post DDAVP and dialysis s/p 2.5 L ultrafiltration on 08/26 11. CAD, with prior CABG performed on 08/10/2020, two-vessel, involving HOLLAND to LAD, and reverse greater saphenous vein to obtuse marginal coronary artery. held aspirin 325 mg daily, continue Plavix 75 mg daily, Toprol all 75 mg twice a day, 12. Moderate protein calorie malnutrition, with anasarca and hypotension. 13. History of pulmonary fibrosis. Continue duo nebs and albuterol 14. Asthma, mild intermittent. Continue ipratropium albuterol nebulizers 15. Hyperlipidemia. Continue statin daily 16. Hypertension. Currently hypotensive 17. GI prophylaxis. Pantoprazole 18. DVT prophylaxis: SCDs CODE STATUS: Full code. The above impression and plan of care have been discussed and directed by signing physician. Danielle Yun nurse practitioner acting as scribe for signing physician.
--- NOTE | 2020-09-01 11:06 | CDI ---
Documentation Clarification Form Date: 09/01/2020 09:55:00 AM From: Sonia Dickson RN, CCDS Admit Date: 08/22/2020 11:29:00 PM Patient Name: Becky Alvarenga Visit Number: [id number] Discharge Date: ATTENTION: The Clinical Documentation Specialists (CDI) and [facility] Coding Staff appreciate your assistance in clarifying documentation. Please respond to the clarification below the line at the bottom and electronically sign. The CDI & [facility] Coding staff will review the response and follow-up if needed. Please note: Queries are made part of the Legal Health Record. If you have any questions, please contact the author of this message via ITS. Dr. Glo Grover The patient presented on 08/22 with shortness of breath, post CABG on 08/10/20 on 08/24 sepsis with septic shock secondary from sternal wound infection. History/Risk Factors: Coronary artery disease, CABG, Hypertension Clinical Indicators: 75-year-old male who is post CABG on 08/10/2020, present to ED with shortness of breath. He complained of chest incisional pain. She was hypotensive. Sternum was documented as stable with serous drainage from chest tube sites which is normal in ED assessment. 08/22 Vital signs; (21:30) 100/72 77 22 98.6 97 %, (22:00) 85/50 75 20 96 % 08/22 WBC 10.5 08/22 Lactic acid: 2.0 08/24 event note: A team activated since the patient's mentation gradually worsened. Vitas signs 99/65 85 32 SpO2 96 % on nonrebreather 15L. Lactic acid 7.6, repeat 5.2. Sternal would was producing thick yellowish brown fluid, was opened approximately 2 cm and deep culture was taken, packed. Blood cultures ordered, Labs: web 11.3, Potassium 7.1, BUN 43, CR 3.15, AST 1882, ALT 727, 08/24 Impression: lactic acidosis, sepsis, hypotension requiring vasopressors 08/24 assessment/attending: sepsis with septic shock with multiorgan failure. 08/22 CXR: Congestive heart failure with small pleural effusion 08/24 Blood cultures: Staphylococcus aureus Treatment: 08/22 500 .9% NS Bolus 2/15 ICU monitoring Continue sternal precautions Vancomycin IV 1,500 Mg IVP Bolus Cefepime 1 Gm IVPB Q 12 HRS (08/24) 08/24 Dialysis catheter left femoral approach Daily labs and x-rays In your professional opinion, please clarify if these findings signify one of the following conditions, whether the condition is POA, and cause, if known: Condition Sepsis POA secondary to sternal wound infection Sepsis Not POA Other, please specify Unable to determine SIRS Criteria (2 or more of the following may indicate SIRS): -Temperature < 96.8F (36C) or > 101.0F (38.3C) -Heart Rate > 90 bpm -Respiratory Rate > 20 breaths/min or PaCO2 < 32 mmHg -White Blood Cell Count > 12,000 or < 4,000 cells/mm3 or > 10% bands -Lactate >2.0 mmol/L (>4.0 is equivalent to septic shock) (Last Revision: October 2017) Sepsis not POA MTDD
[2020-09-01] MEDS: DARBEPOETIN ALFA 40 MCG/0.4 ML SYRINGE SQ SCH (11:54)
[2020-09-01] MEDS: FERROUS SULFATE ORAL ELIXIR 300 MG/5 ML CUP PO SCH (11:54)
[2020-09-01] MEDS: ASCORBIC ACID 500 MG TAB PO SCH (11:55)
--- NOTE | 2020-09-01 12:00 | CDI ---
Documentation Clarification Form Date: 09/01/2020 11:30:20 AM From: Sonia Dickson RN, CCDS Admit Date: 08/22/2020 11:29:00 PM Patient Name: Becky Alvarenga Visit Number: [id number] Discharge Date: ATTENTION: The Clinical Documentation Specialists (CDI) and [facility] Coding Staff appreciate your assistance in clarifying documentation. Please respond to the clarification below the line at the bottom and electronically sign. The CDI & [facility] Coding staff will review the response and follow-up if needed. Please note: Queries are made part of the Legal Health Record. If you have any questions, please contact the author of this message via ITS. Dr. Hoang Graves Atrial Flutter is documented in the progress notes 08/27 and continue in subsequent documentation. Please render your opinion on the type of atrial flutter if known. History/Risk factors: Coronary Artery Disease, Hypertenion, Hyperlipidemia Clinical Indicators: 75-year-old female present on 08/22 with shortness or breath diagnosed with CHF and has sepsis from sternal wound infection. 08/27 progress notes: she is currently in atrial flutter with a relative controlled heart rate. 08/27 Vital signs 111/64 88 31 100.1 intubated/mechanical vent 08/27 EKG/security monitor: atrial flutter (per progress notes) Treatment: ICU Telemetry monitoring Metoprolol 50 mg po bid Monitor Kidney function and electrolytes Aspirin 325 mg po daily In your professional opinion, in order to capture the severity of condition; can you please clarify the type of Atrial Flutter if known? Typical/Type I Atypical/Type II Other, please specify Unable to determine (Last Revision: October 2017) MTDD
[2020-09-01 12:02] LABS: Glucose,Whole Blood 107 mg/dL (75-99)
--- NOTE | 2020-09-01 13:14 | PN ---
PROGRESS NOTE Patient is seen for followup for acute kidney injury, volume overload. She has been maintained on IV Lasix. She has diuresed quite well. Serum creatinine is at 0.9 today. The patient has been in negative balance. Her blood cultures from 08/31 are still growing gram-positive cocci. Dialysis catheter was removed and patient has had wound debridement of the sternal wound. PHYSICAL EXAMINATION: Patient is on the vent. She does respond to verbal stimuli. EXAMINATION OF THE HEART: S1, S2. EXAMINATION OF THE LUNGS: Bilateral breath sounds are heard. The wound is currently dressed. Blood pressure is 102/50, heart rate 101 per minute. She is afebrile. Abdomen is soft. Examination of lower extremities shows edema which seems to have decreased lately. Some bruising is noted. LABS: Labs show sodium 146, potassium 3.3, chloride 101, CO2 of 35, BUN 52, serum creatinine 0.9, hemoglobin 9.5 g/dL. ASSESSMENT: 1. Acute kidney injury secondary to sepsis, currently resolved. Serum creatinine staying at about 0.9 to 0.8 mg/dL. 2. Metabolic alkalosis secondary to diuresis. Lasix currently on hold. 3. Persistent MSSA bacteremia from sternal wound infection and the dialysis catheter has been removed, which could possibly be a source of seeding. 4. Hypokalemia, currently being replaced. 5. Status post coronary artery bypass surgery. 6. Acute hypoxic respiratory failure. The patient remains on the vent. 7. Mild hypernatremia associated with free water deficit. PLAN: Increase free water down the feeding tube. Replace potassium. May hold Lasix for now. Repeat labs in a.m. MMODL / IJN: [id number] /
--- NOTE | 2020-09-01 15:20 | PN ---
PROGRESS NOTE DATE OF SERVICE: 09/01/2020 REASON FOR FOLLOWUP: 1. MSSA bacteremia secondary to sternal wound infection. 2. Diarrhea. INTERVAL HISTORY: The patient is currently afebrile. The patient seems to be slightly awake, as she has been opening her eyes. Patient is hemodynamically stable, not on any pressor support. FiO2 is currently stable. No other changes reported by the nursing staff. PHYSICAL EXAMINATION: Blood pressure 99/52 with a pulse of 99, temperature 98.2. She is 100% on 50% FiO2. General description is an elderly female lying in bed in no distress. RESPIRATORY SYSTEM: Unlabored breathing. Clear to auscultation anteriorly. HEART: S1, S2. Regular rate and rhythm. ABDOMEN: Soft. No tenderness. LABS: Hemoglobin is 9.5, white count 14.9, BUN of 52, creatinine 0.91. DIAGNOSTIC IMPRESSION AND PLAN: Patient with methicillin-susceptible Staphylococcus aeruginosa bacteremia. Source is sternal wound infection. Blood cultures from 08/31 came back positive as well. was negative. Will repeat blood cultures to document clearance of the bacteremia. Nafcillin will be continued. Will discontinue the clindamycin in view of the diarrhea and continue supportive care. at the bedside. Questions were answered. MMODL / IJN: [id number] /
[2020-09-01] MEDS: POTASSIUM CHLORIDE 10 MEQ in WATER FOR INJECTION 1 100ML.BAG IVPB SCH ×2 (16:06→17:25)
[2020-09-01 17:20] LABS: Glucose,Whole Blood 132 mg/dL (75-99)
[2020-09-01 23:35] LABS: Glucose,Whole Blood 125 mg/dL (75-99)
[2020-09-02] MEDS: INSULIN ASPART (NovoLOG) 100 UNIT/ML VIAL SQ SCH ×4 (00:08→17:59)
[2020-09-02] MEDS: HEPARIN SODIUM,PORCINE 5,000 UNIT/ML 1 ML VIAL SQ SCH ×3 (00:10→15:46)
[2020-09-02] MEDS: NAFCILLIN 2 GM in DEXTROSE 5% IN WATER 100 ML IVPB SCH ×12 (00:10→21:26)
[2020-09-02] MEDS: SODIUM CHLORIDE 0.9% 1,000 ML IV SCH (00:11)
[2020-09-02] MEDS: ACETAMINOPHEN TAB 325 MG TAB PO PRN ×2 (03:56→08:35)
[2020-09-02 04:06] LABS: Anisocytosis Slight; Basophils # (A) 0.1 k/uL (0-0.2); Basophils % (A) 1 %; Eosinophils # (A) 0.7 k/uL (0-0.7); Eosinophils % (A) 5 %; HCT 26.1 % (34.0-46.0); HGB 8.4 gm/dL (11.4-16.0); Hypochromasia Marked; Lymphocytes # (A) 2.2 k/uL (1.0-4.8); Lymphocytes % (A) 16 %; MCH 29.9 pg (25.0-35.0); MCHC 32.1 g/dL (31.0-37.0); MCV 93.1 fL (80.0-100.0); Mean Platelet Volume 11.3; Monocytes # (A) 0.4 k/uL (0-1.0); Monocytes % (A) 3 %; Neutrophils # (A) 10.2 k/uL (1.3-7.7); Neutrophils % (A) 75 %; Platelet Count 166 k/uL (150-450); Poikilocytosis Slight; RDW 16.1 % (11.5-15.5); WBC 13.6 k/uL (3.8-10.6)
[2020-09-02 04:43] LABS: Albumin 2.2 g/dL (3.5-5.0); Calcium 6.8 mg/dL (8.4-10.2); Potassium 3.2 mmol/L (3.5-5.1); Total Bilirubin 4.1 mg/dL (0.2-1.3); Total Protein 6.1 g/dL (6.3-8.2)
[2020-09-02] MEDS ORDERED: Potassium Replacement Protocol 1 EACH MISC MISCELLANE PRN (05:39)
[2020-09-02 05:46] LABS: ABG Base Excess 9.4 mmol/L; ABG HCO3 33 mmol/L (21-25); ABG Oxygen Saturation 99.1 % (94-97); ABG PCO2 43 mmHg (35-45); ABG PH 7.49 (7.35-7.45); ABG PO2 108 mmHg (83-108); ABG TCO2 34 mmol/L (19-24); Allen Test Performed? Yes
[2020-09-02 06:05] LABS: Glucose,Whole Blood 129 mg/dL (75-99)
[2020-09-02] MEDS: POTASSIUM CHLORIDE 20 MEQ in WATER FOR INJECTION 1 100ML.BAG IVPB SCH ×2 (06:08→08:23)
[2020-09-02] MEDS: CHLORHEXIDINE GLUCONATE 15 ML CUP MUCOUS MEM SCH ×2 (08:23→21:25)
[2020-09-02] MEDS: CLOPIDOGREL 75 MG TAB PO SCH (08:24)
[2020-09-02] MEDS: METOPROLOL TARTRATE 50 MG TAB PO SCH ×2 (08:24→21:26)
[2020-09-02] MEDS: ASPIRIN 325 MG TAB PO SCH (08:24)
[2020-09-02] MEDS: acetaZOLAMIDE 250 MG TAB PO SCH (08:24)
[2020-09-02] MEDS: PANTOPRAZOLE 40 MG/10 ML VIAL IVP SCH (08:24)
[2020-09-02] MEDS: DRY MOUTH SPRAY 44.3 SPRAY/44.3 ML SPRAY MUCOUS MEM SCH ×4 (08:31→21:25)
--- NOTE | 2020-09-02 08:45 | CDI ---
Documentation Clarification Form Date: 09/02/2020 08:21:57 AM From: Sonia Dickson RN, CCDS Admit Date: 08/22/2020 11:29:00 PM Patient Name: Becky Alvarenga Visit Number: [id number] Discharge Date: ATTENTION: The Clinical Documentation Specialists (CDI) and [facility] Coding Staff appreciate your assistance in clarifying documentation. Please respond to the clarification below the line at the bottom and electronically sign. The CDI & [facility] Coding staff will review the response and follow-up if needed. Please note: Queries are made part of the Legal Health Record. If you have any questions, please contact the author of this message via ITS. Dr. Epifanio Olivera Per operative note on 08/30, a debridement was performed on open sternal wound. Please provide further specificity on technique used. History/Risk Factors: Coronary artery disease, hypertension Clinical Indicators: 75-year-old who is post CABG on 08/10/2020, has a surgically open wound to sternum with ongoing dressing changes and debridement. Treatment: Cardiothoracic surgery to change sternal dressing daily, RNs may reinforce but not to remove Five elements required for accurate and compliant documentation of a debridement: 1. Technique used (e.g., excisional, excised, cutting, etc.) 2. Instrument(s) used (e.g., scalpel, curette, etc.) 3. Nature of the tissue removed (e.g., necrotic, devitalized tissues, non- viable tissue, etc.) 4. Appearance and size of the wound (e.g., down to fresh bleeding tissue, 7cm x 10cm, etc.) 5. Depth of the debridement* (e.g., skin, subcutaneous tissue, fascia, muscle, bone, etc.) In order to capture the severity of condition and code the appropriate procedure; could you please document the following: Excisional debridement (the removal of necrotic, devitalized tissue or slough by means of cutting away of tissue) Non-excisional debridement (the removal of necrotic, devitalized tissue or slough by means of flushing, brushing, or washing. (Irrigation) Other; please specify Unable to determine (Last Revision: October 2017) Excisoional, as documented in op note. NILAYD
--- NOTE | 2020-09-02 08:53 | XR ---
EXAMINATION TYPE: XR chest 1V portable DATE OF EXAM: 09/02/2020 COMPARISON: Prior chest x-rays 09/01/2020 HISTORY: Intubated, respiratory failure TECHNIQUE: Single frontal view of the chest is obtained. FINDINGS: Endotracheal tube, NG tube are overlying appropriate positions. There are overlying leads, artifacts. Postop change noted to the cervical spine. 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 Cardiac mediastinal silhouette is stable accounting for differences in technique, patient is post median sternotomy and left atrial appendage clip placement. Bilateral airspace disease, mixed in terstitial changes are noted. There is no evident pneumothorax or pleural effusion. IMPRESSION: Correlate for pneumonia, edema, ARDS
--- NOTE | 2020-09-02 09:31 | PN ---
PROGRESS NOTE Mrs. Alvarenga is a 75-year-old female who underwent coronary artery bypass grafting presented with dehiscence of wound and respiratory failure. She remains intubated, following commands, alert. Hemodynamically, she is stable in sinus mechanism. There is no evidence of ventricular ectopic activity. She had the wound VAC placed and she is scheduled to undergo a flap next week. Her urine output has been stable. She is tolerating feeding tube. She had evidence of metabolic alkalosis. She continues to be at this time on Diamox 500 mg daily, aspirin once a day, Plavix 75 mg daily, metoprolol tartrate 50 mg twice a day. PHYSICAL EXAMINATION: Blood pressure 114/50 with the heart rate in the 90s. Temperature 100.6. LUNGS: Clear to auscultation anteriorly. HEART: Regular rate and rhythm. S1, S2. No S3. No rub. ABDOMEN: Soft. No organomegaly. EXTREMITIES: No edema. LAB DATA: Lab data revealed white blood cell of 13.6, which improved slightly from yesterday. Hemoglobin 8.4. A pH 7.49, which is significantly improved compared to yesterday. Her pCO2 is 43. Her carbon dioxide is 33. BUN and creatinine 66 and 1.62, which is worse compared to yesterday. Her AST is 67 and her ALT is 36. IMPRESSION: 1. Respiratory failure, status post coronary artery bypass grafting and sternal wound dehiscence. 2. Metabolic acidosis, improving. 3. Worsening renal function. 4. Hypertension. 5. Hyperlipidemia. 6. History of interstitial lung disease. 7. Abnormal liver function test improving. RECOMMENDATION: We will continue present therapy. Her diuretics are on hold. Will follow her renal function closely. Continue to follow her liver function tests to make a decision about initiating the statin and depending on her progress, further recommendation will be made. MMODL / IJN: [id number] /
--- NOTE | 2020-09-02 09:31 | P.PN ---
Subjective Progress Note Date: 09/02/20 Principal diagnosis: Respiratory failure, sternal wound infection Reevaluated today on 08/28/2020, patient remains in the ICU, intubated and mechanically ventilated. Her assist-control rate is 20, volume is 450 FiO2 is 50% PEEP was at 5 and I increased it up to 8. ABG showed a pO2 of 57 pCO2 of 30 pH of 7.53. O2 saturation on the monitor is 96%. Patient remains on norepinep hrine at 0.07 mcg/kg/m, she is also on propofol at 65 mcg/kg/m. Patient is on enteral feeding. Remains on cefepime and daptomycin for her positive blood cultures/MSSA. Patient is also on Lasix at 80 mg IV push every 24 hours. Her urine output has been good. And her chest x-ray continues to show mild congestive heart failure changes. Patient has leukocytosis with WBC count 24.3, electrolytes are normal BUN is 46 creatinine 0.90. Liver enzymes are trending down slowly Patient was reevaluated today on 08/29/2020, remains intubated and mechanically ventilated. She is on assist control rate of 20 tidal volume is 450 FiO2 is 50% and PEEP of 8. ABG showed a pO2 of 56 pCO2 of 35 pH of 7.50 however her O2 saturation on the monitor is 99%. Patient remains on norepinephrine at 0.05 mcg/kg/m, he is on propofol at 70 mcg/kg/m, she is on Lasix 80 mg IV push daily, with good urine output. IV fluid mostly at KVO. Antibiotics garzon she is on cefazolin and clindamycin. Patient had MSSA in the blood and in the sternal wound. Chest x-ray continues to show evidence of pulmonary edema, and now she seems to be developing some consolidation in the right upper lobe medially. Her sternum remains open, decision regarding sternal closure will be made in the next 24-48 hours by thoracic surgery. Patient continues to have leukocytosis with WBC count of 24.2 hemoglobin is 10.6, basic metabolic profile is normal renal profile is normal not requiring any further dialysis, and she has good urine output responding well to diuretics. Liver enzymes seem to be trending down 08/30/2020 the patient remains intubated on a mechanical ventilator. This morning, she has an assist-control at the rate of 20 with tidal volume of 450 and the flow of 70 with a FiO2 of 50% with a PEEP of 8. The morning blood gases from today showed a pH of 7.55, and the pCO2 is a 35 with a pO2 of 72. Necessity ventilator changes were done. Peak airway pressure was 37. Static pressure was 32. Chest x-ray still showing diffuse bilateral pulmonary infiltrates consistent with pneumonia although possibility of an acute lung injury/ARDS cannot be completely excluded. ET tube is in a good location. The patient this morning is sedated with propofol which is running at 50 mcg/kg per minute. Sedation holiday was given this morning to evaluate her mental status. I was told yesterday that the patient did have some diminished level of consciousness once she was off the sedation. Nevertheless she was placed on sedation again to maintain synchrony with the mechanical ventilator. She is septic with staff aureus, MSSA has been cultured in her sputum, and her blood and in her sternal wound. Her current antibiotic coverage including a combination of nafcillin and clindamycin. She is afebrile. Sternal wound is being monitored by the cardiothoracic surgery team. Daily dressing changes are being done. There is still output which is purulent according to the nursing staff. Pressors and the patient is currently on norepinephrine running at 0.04 mcg/kg per minute. Renal function is improving and the creatinine is down to 0.78. The white cell count is at 19.8 with hemoglobin of 10.2 and a platelet count of 90. Liver function tests continue to improve with an AST of 68, ALT of 77 and the last blood culture was taken from 08/29/2020 was again positive for gram-positive bacteria most likely MSSA. The patient has orogastric tube in place and she is receiving vital high protein at a rate of 23 mL an hour. This is at goal for now. No abdominal distention. No increased residuals for now. She is afebrile. Progress note dated 08/31/2020. This is a 75-year-old female was admitted to the hospital on August 22, she came in for a sternal wound infection, and worsening respiratory status with heart failure. Unfortunately, she developed severe hypoxemic respiratory failure and required intubation on August 25. She was discovered to have a sternal wound infection and went to the operating room for debridement, on August 27. Microbiology is positive for methicillin sensitive staph aureus, and she remains on nafcillin and clindamycin. This patient initially had a two- vessel bypass grafting on 08/10/2020, and was discharged on 08/19/2020. Currently, the patient remains on the volume assist control mode, rate is 20, tidal volume is 400, FiO2 40%, and PEEP of 8. Blood gases show a PaO2 of 65, a PaCO2 39, and a pH is 7.58. His blood gases consistent with a relative hypoxemia, and a severe metabolic alkalosis. Currently, the norepinephrine has been weaned off. She remains on saline at 25 mL an hour, and she is currently not on any sedation. She's getting vital high protein at 23 mL an hour with a goal of 28 mL an hour. Today, regarding do a spontaneous breathing trial, on pressor support of 15, CPAP of 5. If the patient shows any signs of deterioration, such as tachycardia, tachypnea, hypertension, diaphoresis, higher respiratory rates, and/or lower tidal volumes, the patient will be switched back to the volume assist control mode with the. Progress note dated 09/01/2020. 75-year-old female admitted back on August 22. She came into the hospital with a sternal wound infection. In addition, she had worsening respiratory status, with heart failure. She developed reinaldo hypoxemic respiratory failure and required intubation on August 25. At that time, she was discovered to have a sternal wound infection, secondary to staph aureus, and went to the perating room for debridement. This was on August 27. Microbiology is positive for methicillin sensitive staph aureus, and she remains on nafcillin and clindamycin. The patient had a two-vessel bypass grafting done on August 10, and was discharged on August 19. Currently, she remains on the volume assist control modality, the rate of 20, tidal volume 400, FiO2 50%, and PEEP of 5. This morning's blood gases, show a PaO2 of 58, a PaCO2 of 40, and a pH is 7.61. These arterial blood gases are consistent with hypoxemia, and a severe metabolic alkalosis. The FiO2 was increased from 40-50%. Currently, she is on propofol at 20 mcg/kg/m, saline at 15 mL an hour, and vital high protein at 54 mL an hour, which is goal. Today, we are going to ensure that her potassium exceeds 4.5, DC her Lasix, and add Diamox 500 mg a day. We also increased the FiO2 earlier this morning to 50%. She will not wean with his profound metabolic alkalosis, and likely, we will hypoventilate and retain carbon dioxide, to balance out her pH. Hence, it's imperative that we treat the alkalosis aggressively. The patient is seen today 09/02/2020 in follow-up in the intensive care unit. She remains intubated on the mechanical ventilator currently an assist-control mode with a rate of 20, tidal volume 400, FiO2 50% and a PEEP of 5. Morning blood gases reveal a P O2 of 108, pCO2 43, pH 7.49. She remains on 0.9 normal saline at 20 miles per hour. She is being nourished with vital HP at 54 ML's per hour which is goal. Chest x-ray reveals endotracheal tube and nasogastric tubes in good position. Bilateral airspace disease, mixed interstitial changes are noted. No evidence of pneumothorax. Possible ARDS. Wound VAC remains in place to the sternal wound. She is status post 3 units of packed red blood cells this admission. Current hemoglobin 8.4. Platelet count 166. White count 13.6. Sodium 145. Potassium 3.2. Creatinine 1.62. AST 67. ALT 36. Blood, sputum, wound cultures all positive for methicillin sensitive staph aureus. Remains on nafcillin. Continued on bronchodilators, Diamox. Heparin for DVT prophylaxis. Plan is for muscle flap tomorrow. She'll receive another weaning trial of pressure support of 10 and CPAP of 5 today. Objective - Vital Signs Vital signs: Vital Signs Temp 100 F H 09/02/20 08:00 Pulse 86 09/02/20 09:00 Resp 29 H 09/02/20 09:00 BP 109/59 09/02/20 09:00 Pulse Ox 100 09/02/20 09:00 Intake & Output 09/01/20 09/02/20 09/02/20 18:59 06:59 18:59 Intake Total 2831.135 1402 447 Output Total 550 910 250 Balance 2281.135 492 197 Weight 85.7 kg Intake: IV 1452 400 55 Clindamycin 900 mg In 50 Dextrose 5% in Water 50 ml @ 50 mls/hr IVPB Q8HR [facility] Rx#:[id number] Nafcillin 2 gm In 1202 200 Dextrose 5% in Water 100 ml @ 50 mls/hr IVPB Q4HR [facility] Rx#:[id number] Sodium Chloride 0.9% 1, 200 200 55 000 ml @ 20 mls/hr IV . Q24H [facility] Rx#:[id number] Intake, IV Titration 457.135 0 Amount Potassium Chloride 10 meq 200 In Water For Injection 1 100ml.bag @ 100 mls/hr IVPB Q1H [facility] Rx#: [id number] Potassium Chloride 20 meq 100 In Water For Injection 1 100ml.bag @ 50 mls/hr IVPB Q2H [facility] Rx#: [id number] propofoL 500 mg In Empty 88.135 Bag 1 bag @ Titrate IV . Q0M [facility] Rx#:[id number] propofoL 500 mg In Empty 69 0 Bag 1 bag @ Titrate IV . Q0M [facility] Rx#:[id number] Tube Feeding 702 702 162 Other 220 300 230 Output: Urine 550 910 250 Other: Voiding Method Indwelling Catheter Indwelling Catheter ABP, PAP, CO, CI - Last Documented Arterial Blood Pressure 153/92 - Exam PHYSICAL EXAMINATION: Revealed a 75-year-old female, obese, intubated. Unable to move extremities. Appears to blink eyes appropriately. HEENT:, PERRLA, EOMI, nonicteric. Moist mucous membranes endotracheal tube and orogastric tubes are intact. CHEST EXAMINATION: Symmetrical chest expansion, rhonchi noted bilaterally. Patient has wound VAC over the sternal wound. HEART EXAMINATION: Normal S1 and S2, 2/6 systolic murmur throughout the precordium. ABDOMEN: Obese, Soft, nontender. Bowel sounds are heard. No organomegaly noted. EXTREMITIES:1+ peripheral pulses with evidence of mild peripheral edema and no calf tenderness noted. NEUROLOGIC EXAMINATION: Only blinking eyes appropriately. Psychiatric: Intubated, could not assess. Skin: Patient has a sternal wound and wound VAC in place. - Labs CBC & Chem 7: 09/02/20 03:50 09/02/20 03:50 Labs: Abnormal Lab Results - Last 24 Hours (Table) 09/01/20 09/01/20 09/01/20 Range/Units 12:00 17:19 23:33 WBC (3.8-10.6) k/uL RBC (3.80-5.40) m/uL Hgb (11.4-16.0) gm/dL Hct (34.0-46.0) % RDW (11.5-15.5) % Neutrophils # (1.3-7.7) k/uL ABG pH (7.35-7.45) ABG HCO3 (21-25) mmol/L ABG Total CO2 (19-24) mmol/L ABG O2 Saturation (94-97) % Potassium (3.5-5.1) mmol/L Carbon Dioxide (22-30) mmol/L BUN (7-17) mg/dL Creatinine (0.52-1.04) mg/dL Glucose (74-99) mg/dL POC Glucose (mg/dL) 107 H 132 H 125 H (75-99) mg/dL Calcium (8.4-10.2) mg/dL Total Bilirubin (0.2-1.3) mg/dL AST (14-36) U/L ALT (4-34) U/L Alkaline Phosphatase (38-126) U/L Total Protein (6.3-8.2) g/dL Albumin (3.5-5.0) g/dL 09/02/20 09/02/20 09/02/20 Range/Units 03:50 03:50 05:42 WBC 13.6 H (3.8-10.6) k/uL RBC 2.80 L (3.80-5.40) m/uL Hgb 8.4 L (11.4-16.0) gm/dL Hct 26.1 L (34.0-46.0) % RDW 16.1 H (11.5-15.5) % Neutrophils # 10.2 H (1.3-7.7) k/uL ABG pH 7.49 H (7.35-7.45) ABG HCO3 33 H (21-25) mmol/L ABG Total CO2 34 H (19-24) mmol/L ABG O2 Saturation 99.1 H (94-97) % Potassium 3.2 L (3.5-5.1) mmol/L Carbon Dioxide 33 H (22-30) mmol/L BUN 66 H (7-17) mg/dL Creatinine 1.62 H (0.52-1.04) mg/dL Glucose 128 H (74-99) mg/dL POC Glucose (mg/dL) (75-99) mg/dL Calcium 6.8 L (8.4-10.2) mg/dL Total Bilirubin 4.1 H (0.2-1.3) mg/dL AST 67 H (14-36) U/L ALT 36 H (4-34) U/L Alkaline Phosphatase 253 H (38-126) U/L Total Protein 6.1 L (6.3-8.2) g/dL Albumin 2.2 L (3.5-5.0) g/dL 09/02/20 Range/Units 06:03 WBC (3.8-10.6) k/uL RBC (3.80-5.40) m/uL Hgb (11.4-16.0) gm/dL Hct (34.0-46.0) % RDW (11.5-15.5) % Neutrophils # (1.3-7.7) k/uL ABG pH (7.35-7.45) ABG HCO3 (21-25) mmol/L ABG Total CO2 (19-24) mmol/L ABG O2 Saturation (94-97) % Potassium (3.5-5.1) mmol/L Carbon Dioxide (22-30) mmol/L BUN (7-17) mg/dL Creatinine (0.52-1.04) mg/dL Glucose (74-99) mg/dL POC Glucose (mg/dL) 129 H (75-99) mg/dL Calcium (8.4-10.2) mg/dL Total Bilirubin (0.2-1.3) mg/dL AST (14-36) U/L ALT (4-34) U/L Alkaline Phosphatase (38-126) U/L Total Protein (6.3-8.2) g/dL Albumin (3.5-5.0) g/dL Microbiology - Last 24 Hours (Table) 08/30/20 03:56 Blood Culture - Preliminary Blood No Growth after 72 hours 08/31/20 03:33 Blood Culture Gram Stain - Preliminary Blood Blood Culture - Preliminary Presumptive Staph aureus 08/29/20 05:20 Blood Culture Gram Stain - Final Blood Blood Culture - Final Staphylococcus aureus 08/28/20 12:04 Blood Culture Gram Stain - Final Blood Blood Culture - Final Staphylococcus aureus Assessment and Plan Assessment: 1 Acute hypoxic and hypercapnic respiratory failure, secondary to an incisional wound infection with staph aureus/MSSA and addition to pneumonia and development of bilateral pleural effusion. The patient because surgical debridement wounds. The patient has required intubation and mechanical ventilation on 08/25/2020. The patient remains intubated on mechanical ventilator. She is still septic with a possible culture from 08/29/2020. The patient is currently on a combination of nafcillin 2 Sepsis from sternal wound infection post debridement, the patient is bacteremic with MSSA and the patient is currently on nafcillin. Plan is for muscle flap tomorrow 09/03/2019 3 Septic shock, primary source is sternal wound infection. This is secondary to MSSA. Patient is receiving nafcillin 4 MSSA sepsis with septic shock. 5 Leukocytosis secondary to above, with secondary is improving and the white cell count is down to 13.6 6 Acute kidney injury required brief period of hemodialysis, presently off hemodialysis. Renal function is normalized and the patient still has a dialysis catheter in the left femoral artery 7 Acute metabolic acidosis secondary to acute kidney injury and sepsis, resolved infected patient is currently alkalotic with a pH of 7.49 8 Acute transaminitis secondary to hypoperfusion. The liver function tests are stable for now 9 Acute diastolic congestive heart failure with bilateral pleural effusions 10 History of hypertension 11 History of cervical stenosis 12 Previous tobacco dependence. 13 History of mild interstitial lung disease/pulmonary fibrosis 14 Status post sternal exploration with sternal debridement on 08/27/[address] Olivera. Wound VAC in place. Plan: The patient was seen and evaluated by Dr. Guadalupe Chest x-ray, ABGs and labs reviewed We'll obtain a weaning trial of pressure support of 10 and CPAP of 5 again today Plan is to remain intubated until after surgery tomorrow Remains on nafcillin, bronchodilators We will continue to follow and make further recommendations based on her clinical status Critical care time 36 minutes I, the cosigning physician, performed a history & physical examination of the patient. Lungs sounds with bilateral scattered rhonchi. Maintaining good O2 saturations in the 90s on 50% FiO2 via the mechanical ventilator. I discussed the assessment and plan of care with my nurse practitioner, Aparna Colunga. I attest to the above note as dictated by her.
--- NOTE | 2020-09-02 11:38 | PN ---
PROGRESS NOTE Patient is seen for followup for acute kidney injury. Patient was admitted to the hospital with severe acute renal failure requiring dialysis. However, her renal function improved. She was also severely volume overloaded and serum creatinine improved to less than 1. Dialysis catheter was eventually removed and patient was being diuresed. Lasix was held yesterday as she was showing evidence of metabolic alkalosis and there had been improvement in her volume status. However, today her creatinine is noted to be increased to 1.6 from 1.0 yesterday. The patient is maintained on nafcillin which was started on 08/29/2020. She has not had any significant episodes of hemodynamic instability. Blood pressure remains slightly on the lower side. Patient is maintained on midodrine. It appears that patient is awake and moves her head but has not been moving any of her extremities. There is consideration for possible underlying ICU neuropathy and critical care neuropathy. PHYSICAL EXAMINATION: On examination today blood pressure is 109/59, heart rate 86 per minute. Patient is afebrile. EXAMINATION OF THE HEART: S1, S2. EXAMINATION OF THE LUNGS: Bilateral breath sounds are heard. The patient is on the vent. Examination of lower extremities shows edema 2+ bilaterally with some bruising noted. ABDOMEN: Obese, soft with abdominal wall edema. 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 LABS: Labs show sodium 145, potassium 3.2, chloride 103, CO2 is 33, BUN 66, creatinine 1.62, hemoglobin 8.4 g/dL. ASSESSMENT: 1. Acute kidney injury on initial admission secondary to sepsis, hypotension which had resolved with creatinine down to 0.9 mg/dL. However, today it is up to 1.6. Urine output is maintained at about 65 to 80 mL an hour. Patient is maintained on nafcillin and there is consideration for possible acute interstitial nephritis. I will discuss with ID regarding discontinuation of nafcillin. 2. Anemia. No active bleeding noted, maintained on Aranesp. 3. Metabolic alkalosis secondary to diuresis, currently improved. Patient was started on Diamox. 4. Persistent MSSA bacteremia from sternal wound infection. 5. Acute hypoxic respiratory failure. 6. Status post coronary artery bypass surgery about a month ago. PLAN: 1. Replace potassium. Hold nafcillin. I will discuss with Infectious Disease with we will need to resume diuresis. 2. 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 MMODL / IJN: [id number] /
[2020-09-02] MEDS: FERROUS SULFATE ORAL ELIXIR 300 MG/5 ML CUP PO SCH (11:39)
[2020-09-02] MEDS: ASCORBIC ACID 500 MG TAB PO SCH (11:39)
--- NOTE | 2020-09-02 11:39 | P.PN ---
Subjective Progress Note Date: 09/02/20 Principal diagnosis: Shortness of breath, acute diastolic heart failure, bilateral pleural effusion, lactic acidosis, hypercapnic respiratory failure requiring BiPAP followed by vt chanical ventilation, deep sternal wound infection with MSSA, acute kidney injury, acute hyperkalemia, hyponatremia, acute transaminitis, hypotension requiring vasopressors use, acute anemia. Past medical history significant for coronary artery disease with left main stenosis status post 2 vessel CABG on 08/10/2020 with expected postoperative acute blood loss anemia, hypotension, and urinary retention as well as candidal stomatititus, hyponatremia, pulmonary fibrosis, asthma, hypertension, hyperlipidemia, previous tobacco dependence, obesity, osteoarthritis, cervical stenosis post anterior cervical disc decompression, discectomy and fusion, TIA as a child, family history of premature coronary artery disease. Paroxysmal Afib w/ RVR POD #6 sternal exploration with sternal debridement. The patient is seen in follow-up today 09/02/2020 at her bedside in the intensive care unit. The patient is intubated with mechanical ventilator support. Sedation has been off since 08/31/2020, she is not moving her extremities with verbal stimuli although is following some simple commands with blinking and shaking her head yes and no. Wound VAC was placed to her sternal wound yesterday by Dr. Olivera, wound measurements for the sternal wound were 15.5 cm x 7 cm x 2 cm deep. T-max temperature in the last 24 hours was 100.6F, she remains on nafcillin for antibiotic coverage managed by infectious disease. Sternal wound cultures, sputum culture and blood cultures positive for MSSA. Laboratory results this morning show a WBC count trending down at 13.6, hemoglobin 8.4, platelets 166, BUN 66, creatinine 1.62, AST 67, ALT 36, total bilirubin 4.1, and arterial blood gases this morning show a pH 7.49, pCO2 43, pO2 108, HCO3 33, oxygen saturations 99.1, base excess 9.4. OG tube remains in place with tube feeding at goal rate of 54 mL per hour. The patient is scheduled for a sternal wound excision, partial splenectomy, myocutaneous flap reconstruction of sternal wound and reconstructive graft tomorrow to be performed by Dr. Whittaker. Objective - Vital Signs Vital signs: Vital Signs Temp 100.6 F H 09/02/20 04:00 Pulse 97 02/24/21 07:00 Resp 30 H 09/02/20 07:00 BP 114/54 09/02/20 07:00 Pulse Ox 100 09/02/20 07:00 Intake & Output 09/01/20 09/02/20 09/02/20 18:59 06:59 18:59 Intake Total 2831.135 1402 69 Output Total 550 910 100 Balance 2281.135 492 -31 Weight 85.7 kg Intake: IV 1452 400 15 Clindamycin 900 mg In 50 Dextrose 5% in Water 50 ml @ 50 mls/hr IVPB Q8HR [facility] Rx#:[id number] Nafcillin 2 gm In 1202 200 Dextrose 5% in Water 100 ml @ 50 mls/hr IVPB Q4HR [facility] Rx#:[id number] Sodium Chloride 0.9% 1, 200 200 15 000 ml @ 20 mls/hr IV . Q24H [facility] Rx#:[id number] Intake, IV Titration 457.135 0 Amount Potassium Chloride 10 meq 200 In Water For Injection 1 100ml.bag @ 100 mls/hr IVPB Q1H [facility] Rx#: [id number] Potassium Chloride 20 meq 100 In Water For Injection 1 100ml.bag @ 50 mls/hr IVPB Q2H [facility] Rx#: [id number] propofoL 500 mg In Empty 88.135 Bag 1 bag @ Titrate IV . Q0M [facility] Rx#:[id number] propofoL 500 mg In Empty 69 0 Bag 1 bag @ Titrate IV . Q0M [facility] Rx#:[id number] Tube Feeding 702 702 54 Other 220 300 Output: Urine 550 910 100 Other: Voiding Method Indwelling Catheter Indwelling Catheter ABP, PAP, CO, CI - Last Documented Arterial Blood Pressure 153/92 - Constitutional General appearance: Present: cooperative, no acute distress, obese - EENT Eyes: Present: PERRLA. Absent: scleral icterus ENT: Present: hearing grossly normal - Neck Details: Neck is supple, no JVD. - Respiratory Details: Lungs sounds essentially clear throughout, diminished bilateral bases. Respirations are symmetrical and nonlabored on mechanical ventilator support. Current mechanical ventilator settings are as follows: Assist control 20, TV 400, FiO2 50%, PEEP of 5. Oxygen saturations 100% on current ventilator settings. - Cardiovascular Details: Regular rhythm and rate. S1 and S2 present, negative for S3, gallop or murmur. Bedside monitor showing normal sinus rhythm heart rate 95 BPM. Generalized +1 edema. Heart hugger is in place, knee-high ANGEL hose and sequential compression devices in place her bilateral lower extremities. Right femoral triple-lumen central catheter. - Gastrointestinal Gastrointestinal Comment(s): Abdomen is soft, nontender and nondistended. Active bowel sounds present in all 4 abdominal quadrants. OG tube in place with continuous tube feedings at goal rate of 54 mL per hour vital high-protein. Fecal management system in place with liquid brown stool. - Genitourinary Genitourinary Comment(s): Yu catheter for accurate I&O. Draining clear yellow urine. - Integumentary Integumentary Comment(s): Skin is warm and dry. No clubbing or cyanosis is present. Sternal wound with wound VAC in place, clean dry and intact. Dressing was changed yesterday by Dr. Epifanio Olivera. Left lower extremity EVH site clean, dry and approximated. No drainage or redness is present. Scattered ecchymosis from her left ankle to her left thigh. - Neurologic Neurologic Comment(s): Open eyes with verbal stimuli and is tracking. No movement to her bilateral upper or lower extremities with verbal stimuli. - Musculoskeletal Musculoskeletal Comment(s): No movement noted to her bilateral upper and lower extremities. - Psychiatric Psychiatric Comment(s): Shaking her head at times has seen no appropriately to questions. Unable to a ccurately assess at this time as the patient is intubated with mechanical ventilator support. - Allied health notes Allied health notes reviewed: nursing - Labs CBC & Chem 7: 09/02/20 03:50 09/02/20 03:50 Labs: Abnormal Lab Results - Last 24 Hours (Table) 09/01/20 09/01/20 09/01/20 Range/Units 04:49 12:00 17:19 WBC (3.8-10.6) k/uL RBC (3.80-5.40) m/uL Hgb (11.4-16.0) gm/dL Hct (34.0-46.0) % RDW (11.5-15.5) % Neutrophils # (1.3-7.7) k/uL ABG pH 7.61 H* (7.35-7.45) ABG pO2 58 L* (83-108) mmHg ABG HCO3 40 H* (21-25) mmol/L ABG Total CO2 41 H (19-24) mmol/L ABG O2 Saturation 93.0 L (94-97) % Potassium (3.5-5.1) mmol/L Carbon Dioxide (22-30) mmol/L BUN (7-17) mg/dL Creatinine (0.52-1.04) mg/dL Glucose (74-99) mg/dL POC Glucose (mg/dL) 107 H 132 H (75-99) mg/dL Calcium (8.4-10.2) mg/dL Total Bilirubin (0.2-1.3) mg/dL AST (14-36) U/L ALT (4-34) U/L Alkaline Phosphatase (38-126) U/L Total Protein (6.3-8.2) g/dL Albumin (3.5-5.0) g/dL 09/01/20 09/02/20 09/02/20 Range/Units 23:33 03:50 03:50 WBC 13.6 H (3.8-10.6) k/uL RBC 2.80 L (3.80-5.40) m/uL Hgb 8.4 L (11.4-16.0) gm/dL Hct 26.1 L (34.0-46.0) % RDW 16.1 H (11.5-15.5) % Neutrophils # 10.2 H (1.3-7.7) k/uL ABG pH (7.35-7.45) ABG pO2 (83-108) mmHg ABG HCO3 (21-25) mmol/L ABG Total CO2 (19-24) mmol/L ABG O2 Saturation (94-97) % Potassium 3.2 L (3.5-5.1) mmol/L Carbon Dioxide 33 H (22-30) mmol/L BUN 66 H (7-17) mg/dL Creatinine 1.62 H (0.52-1.04) mg/dL Glucose 128 H (74-99) mg/dL POC Glucose (mg/dL) 125 H (75-99) mg/dL Calcium 6.8 L (8.4-10.2) mg/dL Total Bilirubin 4.1 H (0.2-1.3) mg/dL AST 67 H (14-36) U/L ALT 36 H (4-34) U/L Alkaline Phosphatase 253 H (38-126) U/L Total Protein 6.1 L (6.3-8.2) g/dL Albumin 2.2 L (3.5-5.0) g/dL 09/02/20 09/02/20 Range/Units 05:42 06:03 WBC (3.8-10.6) k/uL RBC (3.80-5.40) m/uL Hgb (11.4-16.0) gm/dL Hct (34.0-46.0) % RDW (11.5-15.5) % Neutrophils # (1.3-7.7) k/uL ABG pH 7.49 H (7.35-7.45) ABG pO2 (83-108) mmHg ABG HCO3 33 H (21-25) mmol/L ABG Total CO2 34 H (19-24) mmol/L ABG O2 Saturation 99.1 H (94-97) % Potassium (3.5-5.1) mmol/L Carbon Dioxide (22-30) mmol/L BUN (7-17) mg/dL Creatinine (0.52-1.04) mg/dL Glucose (74-99) mg/dL POC Glucose (mg/dL) 129 H (75-99) mg/dL Calcium (8.4-10.2) mg/dL Total Bilirubin (0.2-1.3) mg/dL AST (14-36) U/L ALT (4-34) U/L Alkaline Phosphatase (38-126) U/L Total Protein (6.3-8.2) g/dL Albumin (3.5-5.0) g/dL Microbiology - Last 24 Hours (Table) 08/30/20 03:56 Blood Culture - Preliminary Blood No Growth after 72 hours 08/31/20 03:33 Blood Culture Gram Stain - Preliminary Blood Blood Culture - Preliminary Presumptive Staph aureus 08/29/20 05:20 Blood Culture Gram Stain - Final Blood Blood Culture - Final Staphylococcus aureus 08/28/20 12:04 Blood Culture Gram Stain - Final Blood Blood Culture - Final Staphylococcus aureus - Imaging and Cardiology Chest x-ray: report reviewed, image reviewed Assessment and Plan Assessment: 1. Shortness of breath, acute diastolic heart failure, EF 55-60% on current TTE, bilateral pleural effusions 2. Lactic acidosis, septic shock, blood cultures positive for MSSA 3. Hypercapnic, hypoxic respiratory failure requiring BiPAP, with subsequent intubation and mechanical ventilation 4. Open sternal wound, surgically created, deep sternal wound infection with MSSA, S/P surgical exploration and debridement with daily dressing changes 5. Leukocytosis with bandemia, bandemia resolved, WBC trending down 6. Acute kidney injury, metabolic acidosis, metabolic acidosis resolved, kidney function returning to normal after receiving dialysis 7. Acute hyperkalemia, resolved 8. Acute transaminitis secondary to hypoperfusion, resolving 9. History of hypertension, hypotensive this admission requiring vasopressors, currently off vasopressors 10. Acute anemia, post transfusion PRBCs, on 11. Coronary artery disease with left main stenosis status post 2 vessel CABG on 08/10/2020 with expected postoperative acute blood loss anemia, hypotension, and urinary retention as well as candidal stomatititus 12. Hyponatremia, resolved 13. Pulmonary fibrosis, asthma 14. Hyperlipidemia, treated 15. Previous tobacco dependence 16. Obesity 17. Paroxysmal afib w/ RVR, atrial flutter, status post exclusion of the left atrial appendage using a 35 mm AtriClip, currently sinus rhythm 18. 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 Ventilator management per pulmonary medicine. Weaning trial management per pulmonary critical care medicine. 2. Nephrology following, avoid nephrotoxins, diuretic management per nephrology recommendations. 3. Infectious disease following, final blood cultures, sputum and sternal wound cultures positive for MSSA, continue antibiotics, currently being treated with nafcillin. 4. Continue aspirin, Plavix, beta sisi. Statin remains on hold secondary to transaminitis, will restart when liver enzymes normalize. 5. No anticoagulation as the patient is scheduled for a sternal wound excision, partial sternotomy, myocutaneous flap reconstruction of sternal wound tomorrow 09/04/2020 to be performed by Dr. Tyson. 6. Will continue to monitor daily labs and chest x-rays, ABGs. 7. Consult neurology for possible critical illness myopathy. 8. GI/DVT prophylaxis. 9. Continue tube feeding for nutrition, per dietitian recommendations. 10. Patient's and daughter updated on her care per phone. 11. More recommendations to follow based on patient's clinical course. Time with Patient: Greater than 30
[2020-09-02 11:40] LABS: Glucose,Whole Blood 131 mg/dL (75-99)
[2020-09-02 12:18] LABS: Appearance,Urine Cloudy (Clear); Bilirubin,Urine Negative (Negative); Blood,Urine Negative (Negative); Color,Urine Yellow; Glucose,Urine (UA) Negative (Negative); Ketones,Urine Negative (Negative); Leukocyte Esterase,Urine Negative (Negative); Nitrite,Urine Negative (Negative); Protein,Urine Trace (Negative); RBC,Urine 4 /hpf (0-5); Specific Gravity,Urine 1.018 (1.001-1.035); Squamous Epithelial Cell,Urine <1 /hpf (0-4); Urobilinogen,Urine <2.0 mg/dL (<2.0); WBC,Urine 6 /hpf (0-5)
--- NOTE | 2020-09-02 14:58 | P.PN ---
Subjective Progress Note Date: 09/02/20 HISTORY OF PRESENT ILLNESS This is a 75-year-old female patient of Dr. Rich Avila, Dr. Sloan and Dr. Guadalupe. She has a past medical history significant for hypertension, hype rlipidemia, pulmonary fibrosis, asthma, obesity, remote history of tobacco dependence with smoking 32 years ago, osteoarthritis, cervical stenosis post anterior cervical decompression, discectomy and fusion, TIA as a child at age 11 and family history of premature coronary artery disease with her father being diagnosed in his early 50s. Recently, the patient has been experiencing episodes of shortness of breath over the past 6 months with just minimal activity. She also complained of some lower extremity swelling which did resolve with some diuresis. she underwent a stress test which showed anterior wall ischemia with small reversible defect. a 2-D echocardiogram which showed mild aortic valve insufficiency, mild mitral valve regurgitation, mild tricuspid valve regurgitation and left ventricular function to be normal with an ejection fraction of 55%. Subsequently she underwent an elective heart catheterization on 07/27/2020 which demonstrated a left main stenosis with QING with a calculation of 2.6 mm, a 40% stenosis to her mid left anterior descending coronary artery and a 30% stenosis to her right coronary artery. Due to the patient's symptoms and findings on her heart catheterization of left main stenosis a consult was placed to Dr. Sethi from cardiothoracic surgery for further evaluation and treatment recommendations. During her preoperative workup her serum sodium level was found to be 120 and was admitted prior to surgery for treatment of hyponatremia. Last admission On 08/06/2020-08/19/20 the patient was admitted to the hospital for treatment of her hyponatremia, and once her hyponatremia was resolved on 08/10/2020, asubsequently taken to the operating room where Dr. Sethi performed a double vessel coronary artery bypass grafting surgery using the left internal mammary artery to left anterior setting coronary artery, a reverse greater saphenous vein graft from the aorta to the first obtuse marginal coronary artery, endoscopic harvesting of the left greater saphenous vein from the groin Upon completion of the surgery the patient was transferred to the intensive care unit where she was recovered, monitored hemodynamically and where she progressed cardiac rehabilitation phase Her oxygen was titrated down, she continued to work with physical/occupational therapy and cardiac rehabilitation, she was tolerating an oral diet, her pain was well controlled without narcotics and she was ready to be discharged home with [facility] care on postoperative day #9. Did not require home O2 on last admission however she required new medication changes including diuretics during that last admission. Patient comes in in worsening shortness of breath anasarca, no chest pain, has BARKER, edma without leg pain new medications from last visit was compliant, requiring lipitor 75bid, tolvaptan. meotprolol 75 bid plavix, lasix 40 mg daily losartain 25 asa 325, ferrous sulfate and fluconazole. patient comes in now for CHF, anarsarc ely pleural effusion, consult with dr Sethi. and cardiology, if okay will be cardiothoracic surgeon can also perform the thoracentesis, however with hypoxemia, also have requested Dr. Gamboa's services. Patient has a hemoglobin of 7.0 on and 3, platelet count of 305, hemoglobin right to admission was 8.0 denies any Hemoccult stools, creatinine was 1.60 from a previous of 0.9 blood pressure is in the low 90s systolic, pulse ox, 90 on 4 L nasal cannula, patient was not discharged with home O2 during her last admission 08/24: A-Team was called for mental status changes. Patient was found to have a blood pressure 99/65, heart rate of 85 and pulse ox of 96% on a nonrebreather with respiratory rate of 32. Patient was transferred to the ICU. She was started on vancomycin and cefepime. Patient has been seen by cardiology with plan to continue vasopressor support, patient may need pleurocentesis. Stat echocardiogram was done to rule out pericardial effusion or tamponade. Patient has been seen by nephrology for acute kidney injury secondary to ATN secondary to hypotension and cardiorenal syndrome. Patient is currently on bicarb drip, status post Lasix 80 mg IV once. Renal replacement therapy to be initiated immediately. Vascular consult in place for a dialysis catheter placement and start hemodialysis today with second treatment tomorrow. Sternal wound was producing thick yellowish brown fluid, was opened approximately 2 cm and deep culture was taken, packed and covered with 4 x 4 dressing. She is requiring vasopressors. She is hypothermic and warming blanket is in place.Patient had minimal output yesterday and none today. She is status post 2.5 L of fluids. 08/25 patient was examined in the ICU. She was able to maintain oxygenation on BiPAP overnight switch to high flow 15 m this morning. Patient did have episodes of agitation last night and was started on Seroquel. She did receive a dose of Seroquel prior to admission and was found to be resting comfortably. Patient is off pressors and bicarbonate drip and metabolic acidosis seemed to have cleared off. On evaluation of patient's lab, WBC is 14.3, hemoglobin 6.5 platelet 208 ABG this morning has a pH of 7.47 CO2 74. Bicarb 29. Sodium has improved to 126 chloride 96 BUN 43 creatinine 2.79 lactic acid has improved to 2.9 calcium 7 liver enzymes elevated AST at 2874 ALT 1469 alkaline phosphatase 192 CRP 356 BNP 13,000 UA does suggest some infection with WBC of 88 hyaline casts 33 protein 2+ urine blood trace nitrite negative leukocyte Estrace negative. Wound cultures positive for presumptive staph aureus. Patient's blood culture from yesterday are positive with presumptive staph aureus. Repeat blood cultures ordered. Patient received 1 unit of PRBCs for low hemoglobin. Urine output has improved to 20-40 mL's per hour. Patient did receive a dose of DDAVP for hyponatremia. Normal saline is running at 50 mL per hour. Did receive hemodialysis today with 2 L ultrafiltration. Patient was also noted to be in A. fib with RVR intermittently and her dose of Lopressor was increased to 25 mg every 8 hours. Continue daptomycin and cefepime for antibiotic coverage. Monitor patient's for QTC prolongation well on Seroquel. Patient has significant dehiscence of wound and may need I&D 08/26: She was intubated and placed on mechanical ventilation overnight with pulse ox of 96%, tidal volume 450, FiO2 50, PEEP of 5. Temperature max last evening was 101.2. Heart rate 82, blood pressure 120/53. WBC 9.6, hemoglobin 10.8, platelet count 159. Sodium 134, potassium 4.7, chloride 100, CO2 25, BUN 14 creatinine 1.83. Blood sugars running between 100 2753. Total bilirubin 3.3, AST 1067, ALT 993, alkaline phosphatase 251. Magnesium 2.1. Patient is on vasopressors. playground monitor atrial flutter alternating with sinus rhythm. Patient is also on propofol and Seroquel discontinued. Thoracic surgery is possible taking her to or for I&D and considering wound VAC. Patient is on Plavix. Echocardiogram reveals normal LV function and mild aortic stenosis. Patient is currently on daptomycin and cefepime per Dr. Mcintyre. Urine output remains low at 15-20 mL per hour. Should she is scheduled for third hemodialysis treatment today. Patient is scheduled for Lasix 80 mg IV this afternoon. 08/27 she remains in the ICU, intubated and mechanically ventilated. Patient is going to the OR for debridement today. Patient remains intubated on 50% FiO2 and PEEP of 5, assist control rate of 20volume 450. Continues to require Levophed at 11mcg/ hr . Blood clots and culture positive for MSSA. Urine output is 50-60 mL per hour. Patient continues to be on sedation from propofol at 50 max per KG permanent. IV fluids at KVO. Patient continues to have good urine output after a dose of 80 mg of IV Lasix today. Vision tolerated 2.5 L ultrafiltration yesterday and is started on hemodialysis on August 24. No holiday sedation today. Plan to continue Lasix 80 IV once daily and holding hemodialysis. Anticoagulation held for debridement. 08/28 patient remains in the ICU. Did have sternal Exploration and debridement yesterday remains sedated on propofol. Patient continues to have high temp of 101.6, to 233 tachycardic 111 blood pressure 106/51 oxygen saturation 95% on 50% FiO2. Labs suggest a leukocytosis of 24.3 hemoglobin stable at 10.7 platelet count has dipped dropped to 78, he really suggest a pH of 7.53 pCO2 30 PaO2 57, chloride of 110 potassium 3.5 and anion gap of 6 BUN 46 creatinine 0.9 calcium 7.8 ALT 3:15 alkaline phosphatase 312 AST 112 blood cultures from 08/26 positive for staph aureus. Urine output 1.2 L in 24 hours Repeat blood cultures sent today. Patient continues to be normal sinus rhythm not currently on any anticoagulation at the possibility of going for another debridement. Patient's continues to be on levo fed and still stays intubated. Continue IV Lasix. Patient initiated on IV Lasix 08/29: Patient remain in the ICU, remain on mechanical ventilation, sternal exploration and debridement was done and still have packing area within open wound at this point. Oxygenation is better patient is not 3 to be off vent at this point. Her urine output has been good and hemodynamically stable. 08/30: Patient still on mechanical ventilation, his sternum 1 and was changed today still have significant amount of infection and pus was packed still open. Patient remain on nafcillin and Moni mycin. Still having positive blood culture. 08/31: Patient is more awake today doing trial of weaning parameter try to get patient off the respirator, her incision and infection along the sternum is no change still have packing on still on IV antibiotics. Hemodynamically is more stable. 09/01: Patient evaluated in the ICU, continues on mechanical ventilation. Wound packing was removed yesterday, purulence was noted on the packing, deep near the heart and purulence around the heart. She continues on IV clindamycin and nafcillin. Patient was taken off sedation yesterday for a trial of weaning, but she became hypertensive and tachypneic so she is placed back on sedation. 09/02: Patient remains intubated and on mechanical ventilation with tidal volume 400, FiO2 of 50% and PEEP of 5. Patient has been off sedation since Monday. She is receiving OG tube feedings. She appears to be opening meaning her eyes and can shake her head. Otherwise not moving extremities. She has a wound VAC in place to the sternal wound. Wound cultures and blood culture positive for MSSA. She is scheduled for sternal wound excision and debridement with flap reconstruction and graft tomorrow with Dr. Whittaker. Repeat blood work reveals WBC of 13.6, hemoglobin 8.5. BUN 66 and creatinine 1.62, potassium 3.2 and has been replaced, blood sugars running between 107 and 132. Because renal functioning is worsening, nephrology has recommended holding nafcillin. Repeat chest x-ray reveals correlate for pneumonia, edema, ARDS. REVIEW OF SYSTEMS Unable to obtain due to mental status change/intubation. PHYSICAL EXAMINATION Gen: This is a 75-year-old female. Patient is resting in ICU bed and appears to be comfortable. HEENT: Head is atraumatic, normocephalic. Pupils equal, round. Sclerae is anicteric. Patient intubated and on mechanical ventilation. NECK: Supple. No JVD. No lymphadenopathy. LUNGS: Diminished. No wheezes or rhonchi. No intercostal retractions. HEART: Regular rate and rhythm. 2/6 systolic murmur. Wound VAC in place to sternal wound. ABDOMEN: Soft. Bowel sounds are present. No masses. No tenderness. EXTREMITIES: 2+ bilat pitting edema. No calf tenderness. NEUROLOGICAL: Patient is sedated ASSESSMENT AND PLAN 1. Acute diastolic heart failure, (POA) EF 55%, mild AI and mild MR and mild TR, also complicated by severe protein calorie malnutrition, Cardiology consult appreciated. Patient is currently off Lasix. 2. Acute hypoxemic respiratory failure. (POA) Patient has underlying pulmonary hypertension as well, consult with coronary. Patient is intubated and on mechanical ventilation. Pulmonary medicine is managing. 3. Acute kidney injury secondary to ATN secondary to hypotension and cardiorenal syndrome. (POA) Patient is status post dialysis catheter placement, hemodialysis. Patient is followed closely by nephrology. 4. Hyperkalemia secondary to potassium supplementation, losartan and acute kidney injury as well as severe acidosis. (POA) Consult with nephrology appreciated. Continue medical management. 5. Metabolic acidosis secondary to acute kidney injury. (POA) 6. Metabolic encephalopathy secondary to acute kidney injury, acute heart failure, acute respiratory failure, metabolic acidosis and hyperkalemia. (POA) 7. Sepsis with septic shock with multiorgan failure with metabolic encephalopat hy, acute kidney injury, acute heart failure, acute respiratory failure. (POA) status post sternal exploration and sternal debridement on August 27, Patient is off vasopressors. 8. Sepsis with sternal wound dehiscence. (POA) Status post sternal exploration and sternal debridement Infectious disease consult appreciated. Patient is currently on nafcillin which is on hold due to worsening renal function. 9. Acute blood loss anemia, postop, status post transfusion of 3 units of packed RBCs. 10. Hyponatremia. 11. CAD, with prior CABG performed on 08/10/2020, two-vessel, involving HOLLAND to LAD, and reverse greater saphenous vein to obtuse marginal coronary artery. Continue aspirin 325 mg daily, Plavix 75 mg daily, Toprol all 75 mg twice a day, 12. Severe protein calorie malnutrition, with anasarca and hypotension. 13. History of pulmonary fibrosis. Continue duo nebs and albuterol 14. Asthma, mild intermittent. Continue ipratropium albuterol nebulizers 15. Hyperlipidemia. Continue statin daily 16. Hypertension. Currently hypotensive 17. GI prophylaxis. Pantoprazole 18. Critical care neuropathy. Nephrology consult appreciated. 19. DVT prophylaxis: SCDs 20. Blood sugar management in a nondiabetic. insulin scale every 6 hours. 21. Acute transaminitis in Jorge to hypoperfusion. Prognosis guarded DISCHARGE PLAN TBD. Impression and plan of care have been directed as dictated by the signing physician. Monica Fragoso nurse practitioner acting as scribe for signing physician. Objective - Vital Signs Vital signs: Vital Signs Temp 100 F H 09/02/20 08:00 Pulse 86 09/02/20 09:00 Resp 29 H 09/02/20 09:00 BP 109/59 09/02/20 09:00 Pulse Ox 100 09/02/20 09:00 Intake & Output 09/01/20 09/02/20 09/02/20 18:59 06:59 18:59 Intake Total 2831.135 1402 447 Output Total 550 910 250 Balance 2281.135 492 197 Weight 85.7 kg Intake: IV 1452 400 55 Clindamycin 900 mg In 50 Dextrose 5% in Water 50 ml @ 50 mls/hr IVPB Q8HR [facility] Rx#:[id number] Nafcillin 2 gm In 1202 200 Dextrose 5% in Water 100 ml @ 50 mls/hr IVPB Q4HR [facility] Rx#:[id number] Sodium Chloride 0.9% 1, 200 200 55 000 ml @ 20 mls/hr IV . Q24H [facility] Rx#:[id number] Intake, IV Titration 457.135 0 Amount Potassium Chloride 10 meq 200 In Water For Injection 1 100ml.bag @ 100 mls/hr IVPB Q1H [facility] Rx#: [id number] Potassium Chloride 20 meq 100 In Water For Injection 1 100ml.bag @ 50 mls/hr IVPB Q2H [facility] Rx#: [id number] propofoL 500 mg In Empty 88.135 Bag 1 bag @ Titrate IV . Q0M [facility] Rx#:[id number] propofoL 500 mg In Empty 69 0 Bag 1 bag @ Titrate IV . Q0M [facility] Rx#:[id number] Tube Feeding 702 702 162 Other 220 300 230 Output: Urine 550 910 250 Other: Voiding Method Indwelling Catheter Indwelling Catheter Indwelling Catheter ABP, PAP, CO, CI - Last Documented Arterial Blood Pressure 153/92 - Labs CBC & Chem 7: 09/02/20 03:50 09/02/20 12:20 Labs: Abnormal Lab Results - Last 24 Hours (Table) 09/01/20 09/01/20 09/01/20 Range/Units 12:00 17:19 23:33 WBC (3.8-10.6) k/uL RBC (3.80-5.40) m/uL Hgb (11.4-16.0) gm/dL Hct (34.0-46.0) % RDW (11.5-15.5) % Neutrophils # (1.3-7.7) k/uL ABG pH (7.35-7.45) ABG HCO3 (21-25) mmol/L ABG Total CO2 (19-24) mmol/L ABG O2 Saturation (94-97) % Potassium (3.5-5.1) mmol/L Carbon Dioxide (22-30) mmol/L BUN (7-17) mg/dL Creatinine (0.52-1.04) mg/dL Glucose (74-99) mg/dL POC Glucose (mg/dL) 107 H 132 H 125 H (75-99) mg/dL Calcium (8.4-10.2) mg/dL Total Bilirubin (0.2-1.3) mg/dL AST (14-36) U/L ALT (4-34) U/L Alkaline Phosphatase (38-126) U/L Total Protein (6.3-8.2) g/dL Albumin (3.5-5.0) g/dL 09/02/20 09/02/20 09/02/20 Range/Units 03:50 03:50 05:42 WBC 13.6 H (3.8-10.6) k/uL RBC 2.80 L (3.80-5.40) m/uL Hgb 8.4 L (11.4-16.0) gm/dL Hct 26.1 L (34.0-46.0) % RDW 16.1 H (11.5-15.5) % Neutrophils # 10.2 H (1.3-7.7) k/uL ABG pH 7.49 H (7.35-7.45) ABG HCO3 33 H (21-25) mmol/L ABG Total CO2 34 H (19-24) mmol/L ABG O2 Saturation 99.1 H (94-97) % Potassium 3.2 L (3.5-5.1) mmol/L Carbon Dioxide 33 H (22-30) mmol/L BUN 66 H (7-17) mg/dL Creatinine 1.62 H (0.52-1.04) mg/dL Glucose 128 H (74-99) mg/dL POC Glucose (mg/dL) (75-99) mg/dL Calcium 6.8 L (8.4-10.2) mg/dL Total Bilirubin 4.1 H (0.2-1.3) mg/dL AST 67 H (14-36) U/L ALT 36 H (4-34) U/L Alkaline Phosphatase 253 H (38-126) U/L Total Protein 6.1 L (6.3-8.2) g/dL Albumin 2.2 L (3.5-5.0) g/dL 09/02/20 Range/Units 06:03 WBC (3.8-10.6) k/uL RBC (3.80-5.40) m/uL Hgb (11.4-16.0) gm/dL Hct (34.0-46.0) % RDW (11.5-15.5) % Neutrophils # (1.3-7.7) k/uL ABG pH (7.35-7.45) ABG HCO3 (21-25) mmol/L ABG Total CO2 (19-24) mmol/L ABG O2 Saturation (94-97) % Potassium (3.5-5.1) mmol/L Carbon Dioxide (22-30) mmol/L BUN (7-17) mg/dL Creatinine (0.52-1.04) mg/dL Glucose (74-99) mg/dL POC Glucose (mg/dL) 129 H (75-99) mg/dL Calcium (8.4-10.2) mg/dL Total Bilirubin (0.2-1.3) mg/dL AST (14-36) U/L ALT (4-34) U/L Alkaline Phosphatase (38-126) U/L Total Protein (6.3-8.2) g/dL Albumin (3.5-5.0) g/dL Microbiology - Last 24 Hours (Table) 08/30/20 03:56 Blood Culture - Preliminary Blood No Growth after 72 hours 08/31/20 03:33 Blood Culture Gram Stain - Preliminary Blood Blood Culture - Preliminary Presumptive Staph aureus 08/29/20 05:20 Blood Culture Gram Stain - Final Blood Blood Culture - Final Staphylococcus aureus 08/28/20 12:04 Blood Culture Gram Stain - Final Blood Blood Culture - Final Staphylococcus aureus
[2020-09-02] MEDS: POTASSIUM BICARBONATE/CIT AC 20 MEQ TABLET.EFF NG-TUBE SCH ×2 (15:46→17:58)
--- NOTE | 2020-09-02 16:37 | P.CNNES ---
History of Present Illness Consult date: 09/02/20 Requesting physician: Mitch Ha Reason for Consult: Critical illness History of Present Illness: Patient is a 75-year-old female, who was hospitalized from 08/06/2020 to 08/19/2020 for coronary artery bypass grafting. Patient stayed in the home with her , and some home health aide, but returned back to the hospital on 08/22/2020 for altered mental status. Patient underwent placement on mechanical ventilation on 08/25/2020. She was diagnosed incision for infection, and underwent sternal debridement on 08/27/2020. Patient became septic with persistent positive blood cultures. Patient is still intubated. Patient has woken up, moving her eyes, has been responding appropriately with eye blinking, but has been noticed to be quadriplegic in the last few days. This prompted neurology consultation. On review of records, before discharge, patient was noted to be ambulating, talking appropriately. Patient's states that for the 3 days she was at home, she was able to walk by herself, with her or the home health aide being close to her. She was not using any assistive device. This is an acute change. Patient's blood cultures have been consistently positive for staph aureus. Patient's blood test shows WBC 13.6, hemoglobin 8.4, platelets 166. ESR 28. INR 1.9. Patient's electrolytes are normal, BUN 66, creatinine 1.62, which appears to be getting worse now. Her hemoglobin A1c is 5.5 on 08/09/2020, calcium is 6.8, ionized calcium 4.2 which is also decreased. AST is 67, ALT 36, total cholesterol 186, LDL 98, HDL 61 and triglycerides 135, TSH is normal 1.87. Serum cortisol is normal. Hepatitis panel is negative. Patient's 2-D echo from 08/24/2020 shows normal left-ventricular size. Moderate concentric LVH, EF is 55-60%. Mild aortic valve sclerosis. Mild aortic stenosis. Patient had a carotid Doppler on 07/27/2020, which revealed no hemodynamic significant stenosis of the proximal ICAs, indirect measurement of carotid stenosis. Antegrade flow in both vertebral arteries. Review of Systems Patient nods yes for headache. Although was inconsistent. ROS unobtainable: due to endotracheal tube Past Medical History Past Medical History: Asthma, Coronary Artery Disease (CAD), Hyperlipidemia, Hypertension, Osteoarthritis (OA) Additional Past Medical History / Comment(s): skin cancer with removals, arthritis multiple joints, back and cervical pain, ?TIA in her teens-shows up on scan?, pulmonary fibrosis, hyponatremia History of Any Multi-Drug Resistant Organisms: None Reported Past Surgical History: Cholecystectomy, Coronary Bypass/CABG, Heart Catheterization, Tonsillectomy, Tubal Ligation Additional Past Surgical History / Comment(s): 08-10-20 CABG, 2 cardiac caths without intervention, bilateral cataract removal with lens implants, skin cancer removals, cyst removed from neck, colonoscopy, cervical fusion Past Anesthesia/Blood Transfusion Reactions: No Reported Reaction Additional Past Anesthesia/Blood Transfusion Reaction / Comment(s): Pt has never received blood. Past Psychological History: No Psychological Hx Reported Smoking Status: Former smoker Past Alcohol Use History: None Reported Past Drug Use History: None Reported - Past Family History Brother(s) Family Medical History: Coronary Artery Disease (CAD) Additional Family Medical History / Comment(s): "bad heart" aneurysm Sister(s) Family Medical History: Cancer Additional Family Medical History / Comment(s): breast cancer Mother Family Medical History: Cancer, Coronary Artery Disease (CAD) Additional Family Medical History / Comment(s): Lymphoma, had a pacemaker. Mother at the age of 92yrs. Father Family Medical History: Coronary Artery Disease (CAD), Myocardial Infarction (SD) Additional Family Medical History / Comment(s): Father of a SD at the age of 63 yrs, diagnosed with CAD in his early 50s. Medications and Allergies Home Medications Medication Instructions Recorded Confirmed Type Ipratropium-Albuterol Nebulize 3 ml INHALATION RT-QID PRN 05/18/15 08/22/20 History [Duoneb 0.5 mg-3 mg/3 ml Soln] Ibuprofen [Motrin] 800 mg PO TID PRN 12/05/17 08/22/20 History Albuterol Sulfate [Albuterol 2 puff PO RT-Q6H PRN 08/06/20 08/22/20 History Sulfate Hfa] Acetaminophen Tab [Tylenol] 650 mg PO Q4HR PRN tab 08/19/20 08/22/20 Rx Ascorbic Acid [Vitamin C] 500 mg PO DAILY@1200 #7 tab 08/19/20 08/22/20 Rx Aspirin 325 mg PO DAILY #30 tab 08/19/20 08/22/20 Rx Atorvastatin [Lipitor] 40 mg PO DAILY #30 tab 08/19/20 08/22/20 Rx Clopidogrel [Plavix] 75 mg PO DAILY #30 tab 08/19/20 08/22/20 Rx Ferrous Sulfate [Iron (65 MG 325 mg PO W/LUNCH #7 tab 08/19/20 08/22/20 Rx Elemental)] Furosemide [Lasix] 40 mg PO DAILY #7 tablet 08/19/20 08/22/20 Rx Losartan [Cozaar] 25 mg PO DAILY@1200 #30 tab 08/19/20 08/22/20 Rx Metoprolol Tartrate [Lopressor] 75 mg PO BID #180 tab 08/19/20 08/22/20 Rx Pantoprazole [Protonix] 40 mg PO AC-BRKFST #30 tablet.dr 08/19/20 08/22/20 Rx Potassium Chloride ER [K-Dur 10] 10 meq PO DAILY #7 tab 08/19/20 08/22/20 Rx Sennosides-Docusate Sodium 2 each PO HS PRN #14 tab 08/19/20 08/22/20 Rx [Senokot-S] guaiFENesin-DM 600/30MG [Mucinex 2 each PO Q12HR #14 tab.er.12h 08/19/20 08/22/20 Rx Dm] Allergies Allergy/AdvReac Type Severity Reaction Status Date / Time adhesive Allergy blisters Verified 08/22/20 22:40 latex Allergy Rash/Hives Verified 08/22/20 22:40 Physical Examination - Vital Signs Vital Signs: Vital Signs Temp Pulse Resp BP Pulse Ox 09/02/20 14:00 93 34 H 108/52 100 09/02/20 13:00 96 37 H 109/56 100 09/02/20 12:00 100.5 F H 96 34 H 105/60 100 09/02/20 11:00 89 33 H 95/58 100 09/02/20 10:00 85 34 H 98/55 100 09/02/20 09:00 86 29 H 109/59 100 09/02/20 08:00 100 F H 97 23 115/54 99 09/02/20 07:00 97 30 H 114/54 100 09/02/20 06:00 94 31 H 101/45 100 09/02/20 05:00 90 26 H 101/45 100 09/02/20 04:00 100.6 F H 90 31 H 103/49 100 09/02/20 03:00 91 29 H 98/46 100 09/02/20 02:00 92 29 H 95/46 100 09/02/20 01:00 90 30 H 94/54 100 09/02/20 00:00 99.8 F H 91 38 H 99/48 100 09/01/20 23:00 85 33 H 88/46 100 09/01/20 22:00 101 H 30 H 99/50 100 09/01/20 21:00 105 H 30 H 97/46 100 09/01/20 20:46 100 09/01/20 20:34 102 H 09/01/20 20:00 100.5 F H 99 24 105/47 100 09/01/20 19:00 103 H 30 H 90/44 100 09/01/20 18:00 105 H 34 H 93/41 100 09/01/20 17:00 105 H 25 H 92/54 100 09/01/20 16:03 104 H 09/01/20 16:00 99.3 F 104 H 19 86/67 100 09/01/20 15:46 102 H Intake and Output 09/02/20 09/02/20 09/02/20 06:59 14:59 22:59 Intake Total 972 817 Output Total 640 660 Balance 332 157 Intake: IV 340 155 Nafcillin 2 gm In 200 Dextrose 5% in Water 100 ml @ 50 mls/hr IVPB Q4HR [facility] Rx#:[id number] Sodium Chloride 0.9% 1, 140 155 000 ml @ 20 mls/hr IV . Q24H TORIBIO Rx#:[id number] Tube Feeding 432 432 Other 200 230 Output: Urine 640 660 Other: Voiding Method Indwelling Catheter Indwelling Catheter Weight 85.7 kg 85.7 kg On examination patient is intubated on mechanical ventilator. Patient is quite alert, opens her eyes, makes eye contact, tracks, and responds appropriately by blinking her eyes. Pupils are round and reacting to light, visual lópez could not be tested but she does blink to visual threat. Extraocular muscles are intact. Patient does smile despite being on mechanical ventilation, and appears symmetric. Could not protrude her tongue. Patient is completely quadriplegic, not able to move her toes and fingers shoulders or hips. Reflexes are 2+ to 3 in the right upper limb, 0 in the left upper limb. In the lower extremities, knee is 1+ to 2 on the right, absent on the left. Ankles are absent bilaterally. Patient has bilateral Babinski. Cerebellar function sensory could not be tested. Patient does not to feeling in her arms inconsistently. Patient's neck appears stiff. No obvious bruit, S1 and S2 audible, abdomen is soft. She has peripheral edema. Results - Laboratory Findings CBC and BMP: 09/02/20 03:50 09/02/20 12:20 Abnormal Lab Findings: Abnormal Labs 08/22/20 08/22/20 08/22/20 21:44 21:44 21:44 WBC RBC 2.32 L Hgb 7.0 L Hct 21.2 L MCHC RDW Plt Count Neutrophils # 9.5 H Neutrophils # (Manual) Lymphocytes # 0.5 L Lymphocytes # (Manual) Monocytes # (Manual) Eosinophils # Eosinophils # (Manual) Basophils # Metamyelocytes # (Man) Myelocytes # (Manual) Promyelocytes # (Man) Nucleated RBCs ESR PT INR D-Dimer ABG pH ABG pCO2 ABG pO2 ABG HCO3 ABG Total CO2 ABG O2 Saturation ABG Lactic Acid Sodium 125 L Potassium Chloride 94 L Carbon Dioxide BUN 30 H Creatinine 1.60 H Glucose POC Glucose (mg/dL) Plasma Lactic Acid Garrett Calcium 7.7 L Ionized Calcium Matt Total Bilirubin 1.4 H AST 57 H ALT 40 H Alkaline Phosphatase Troponin I 0.076 H* C-Reactive Protein Total Protein 5.1 L Albumin 2.6 L Procalcitonin Urine Appearance Urine Protein Urine Blood Urine Bilirubin Urine WBC Urine WBC Clumps Urine Bacteria Hyaline Casts Urine Mucus Urine Yeast (Budding) Mycoplasma pneumon IgG Crossmatch 08/23/20 08/23/20 08/23/20 00:16 00:16 05:36 WBC RBC Hgb Hct MCHC RDW Plt Count Neutrophils # Neutrophils # (Manual) Lymphocytes # Lymphocytes # (Manual) Monocytes # (Manual) Eosinophils # Eosinophils # (Manual) Basophils # Metamyelocytes # (Man) Myelocytes # (Manual) Promyelocytes # (Man) Nucleated RBCs ESR PT INR D-Dimer ABG pH ABG pCO2 ABG pO2 ABG HCO3 ABG Total CO2 ABG O2 Saturation ABG Lactic Acid Sodium Potassium Chloride Carbon Dioxide BUN Creatinine Glucose POC Glucose (mg/dL) Plasma Lactic Acid Garrett Calcium Ionized Calcium Matt Total Bilirubin AST ALT Alkaline Phosphatase Troponin I 0.077 H* 0.094 H* C-Reactive Protein Total Protein Albumin Procalcitonin Urine Appearance Urine Protein Urine Blood Urine Bilirubin Urine WBC Urine WBC Clumps Urine Bacteria Hyaline Casts Urine Mucus Urine Yeast (Budding) Mycoplasma pneumon IgG Crossmatch See Detail 08/23/20 08/23/20 08/24/20 05:36 05:36 03:19 WBC RBC 2.54 L Hgb 7.5 L Hct 24.1 L MCHC RDW Plt Count Neutrophils # 8.0 H Neutrophils # (Manual) Lymphocytes # 0.4 L Lymphocytes # (Manual) Monocytes # (Manual) Eosinophils # Eosinophils # (Manual) Basophils # Metamyelocytes # (Man) Myelocytes # (Manual) Promyelocytes # (Man) Nucleated RBCs ESR PT INR D-Dimer ABG pH ABG pCO2 ABG pO2 ABG HCO3 ABG Total CO2 ABG O2 Saturation ABG Lactic Acid Sodium 128 L Potassium Chloride 96 L Carbon Dioxide 18 L BUN 33 H Creatinine 1.99 H Glucose POC Glucose (mg/dL) 60 L Plasma Lactic Acid Garrett Calcium 7.8 L Ionized Calcium Matt Total Bilirubin 1.5 H AST 63 H ALT 44 H Alkaline Phosphatase 128 H Troponin I C-Reactive Protein Total Protein 5.3 L Albumin 2.6 L Procalcitonin Urine Appearance Urine Protein Urine Blood Urine Bilirubin Urine WBC Urine WBC Clumps Urine Bacteria Hyaline Casts Urine Mucus Urine Yeast (Budding) Mycoplasma pneumon IgG Crossmatch 08/24/20 08/24/20 08/24/20 03:31 03:52 04:02 WBC RBC Hgb Hct MCHC RDW Plt Count Neutrophils # Neutrophils # (Manual) Lymphocytes # Lymphocytes # (Manual) Monocytes # (Manual) Eosinophils # Eosinophils # (Manual) Basophils # Metamyelocytes # (Man) Myelocytes # (Manual) Promyelocytes # (Man) Nucleated RBCs ESR PT INR D-Dimer ABG pH 7.08 L* ABG pCO2 52 H ABG pO2 ABG HCO3 15 L ABG Total CO2 17 L ABG O2 Saturation ABG Lactic Acid Sodium Potassium Chloride Carbon Dioxide BUN Creatinine Glucose POC Glucose (mg/dL) 57 L 114 H Plasma Lactic Acid Garrett Calcium Ionized Calcium Matt Total Bilirubin AST ALT Alkaline Phosphatase Troponin I C-Reactive Protein Total Protein Albumin Procalcitonin Urine Appearance Urine Protein Urine Blood Urine Bilirubin Urine WBC Urine WBC Clumps Urine Bacteria Hyaline Casts Urine Mucus Urine Yeast (Budding) Mycoplasma pneumon IgG Crossmatch 08/24/20 08/24/20 08/24/20 04:16 04:16 04:16 WBC 11.3 H RBC 2.44 L Hgb 7.1 L Hct 24.0 L MCHC 29.7 L RDW 15.6 H Plt Count Neutrophils # Neutrophils # (Manual) 9.83 H Lymphocytes # Lymphocytes # (Manual) 0.57 L Monocytes # (Manual) Eosinophils # Eosinophils # (Manual) Basophils # Metamyelocytes # (Man) Myelocytes # (Manual) Promyelocytes # (Man) Nucleated RBCs ESR PT INR D-Dimer ABG pH ABG pCO2 ABG pO2 ABG HCO3 ABG Total CO2 ABG O2 Saturation ABG Lactic Acid Sodium 129 L Potassium 7.1 H* Chloride 96 L Carbon Dioxide 11 L BUN 43 H Creatinine 3.15 H Glucose POC Glucose (mg/dL) Plasma Lactic Acid Garrett 7.6 H* Calcium 7.5 L Ionized Calcium Matt Total Bilirubin 2.7 H AST 1882 H ALT 727 H Alkaline Phosphatase 134 H Troponin I C-Reactive Protein Total Protein 6.2 L Albumin Procalcitonin Urine Appearance Urine Protein Urine Blood Urine Bilirubin Urine WBC Urine WBC Clumps Urine Bacteria Hyaline Casts Urine Mucus Urine Yeast (Budding) Mycoplasma pneumon IgG Crossmatch 08/24/20 08/24/20 08/24/20 04:28 04:47 05:00 WBC RBC Hgb Hct MCHC RDW Plt Count Neutrophils # Neutrophils # (Manual) Lymphocytes # Lymphocytes # (Manual) Monocytes # (Manual) Eosinophils # Eosinophils # (Manual) Basophils # Metamyelocytes # (Man) Myelocytes # (Manual) Promyelocytes # (Man) Nucleated RBCs ESR PT INR D-Dimer 21.28 H ABG pH ABG pCO2 ABG pO2 ABG HCO3 ABG Total CO2 ABG O2 Saturation ABG Lactic Acid Sodium Potassium Chloride Carbon Dioxide BUN Creatinine Glucose POC Glucose (mg/dL) 120 H Plasma Lactic Acid Garrett Calcium Ionized Calcium Matt Total Bilirubin AST ALT Alkaline Phosphatase Troponin I C-Reactive Protein Total Protein Albumin Procalcitonin Urine Appearance Turbid H Urine Protein 2+ H Urine Blood Trace H Urine Bilirubin 1+ H Urine WBC 88 H Urine WBC Clumps Many H Urine Bacteria Few H Hyaline Casts 33 H Urine Mucus Rare H Urine Yeast (Budding) Occasional H Mycoplasma pneumon IgG Crossmatch 08/24/20 08/24/20 08/24/20 05:32 05:40 07:43 WBC RBC Hgb Hct MCHC RDW Plt Count Neutrophils # Neutrophils # (Manual) Lymphocytes # Lymphocytes # (Manual) Monocytes # (Manual) Eosinophils # Eosinophils # (Manual) Basophils # Metamyelocytes # (Man) Myelocytes # (Manual) Promyelocytes # (Man) Nucleated RBCs ESR PT INR D-Dimer ABG pH 7.19 L* ABG pCO2 50 H ABG pO2 304 H ABG HCO3 19 L ABG Total CO2 ABG O2 Saturation 100.0 H ABG Lactic Acid Sodium Potassium Chloride Carbon Dioxide BUN Creatinine Glucose POC Glucose (mg/dL) Plasma Lactic Acid Garrett Calcium Ionized Calcium Matt Total Bilirubin AST ALT Alkaline Phosphatase Troponin I C-Reactive Protein 360.3 H Total Protein Albumin Procalcitonin 16.57 H Urine Appearance Urine Protein Urine Blood Urine Bilirubin Urine WBC Urine WBC Clumps Urine Bacteria Hyaline Casts Urine Mucus Urine Yeast (Budding) Mycoplasma pneumon IgG Crossmatch 08/24/20 08/24/20 08/24/20 08:10 08:10 09:04 WBC RBC Hgb Hct MCHC RDW Plt Count Neutrophils # Neutrophils # (Manual) Lymphocytes # Lymphocytes # (Manual) Monocytes # (Manual) Eosinophils # Eosinophils # (Manual) Basophils # Metamyelocytes # (Man) Myelocytes # (Manual) Promyelocytes # (Man) Nucleated RBCs ESR PT INR D-Dimer ABG pH ABG pCO2 ABG pO2 ABG HCO3 ABG Total CO2 ABG O2 Saturation ABG Lactic Acid Sodium Potassium 5.7 H Chloride Carbon Dioxide BUN Creatinine Glucose POC Glucose (mg/dL) 183 H Plasma Lactic Acid Garrett 5.2 H* Calcium Ionized Calcium Matt Total Bilirubin AST ALT Alkaline Phosphatase Troponin I C-Reactive Protein Total Protein Albumin Procalcitonin Urine Appearance Urine Protein Urine Blood Urine Bilirubin Urine WBC Urine WBC Clumps Urine Bacteria Hyaline Casts Urine Mucus Urine Yeast (Budding) Mycoplasma pneumon IgG Crossmatch 08/24/20 08/24/20 08/24/20 11:15 11:48 11:51 WBC RBC Hgb Hct MCHC RDW Plt Count Neutrophils # Neutrophils # (Manual) Lymphocytes # Lymphocytes # (Manual) Monocytes # (Manual) Eosinophils # Eosinophils # (Manual) Basophils # Metamyelocytes # (Man) Myelocytes # (Manual) Promyelocytes # (Man) Nucleated RBCs ESR PT INR D-Dimer ABG pH ABG pCO2 ABG pO2 ABG HCO3 ABG Total CO2 ABG O2 Saturation ABG Lactic Acid Sodium Potassium 5.5 H Chloride Carbon Dioxide BUN Creatinine Glucose POC Glucose (mg/dL) 159 H Plasma Lactic Acid Garrett 5.6 H* Calcium Ionized Calcium Matt Total Bilirubin AST ALT Alkaline Phosphatase Troponin I C-Reactive Protein Total Protein Albumin Procalcitonin Urine Appearance Urine Protein Urine Blood Urine Bilirubin Urine WBC Urine WBC Clumps Urine Bacteria Hyaline Casts Urine Mucus Urine Yeast (Budding) Mycoplasma pneumon IgG Crossmatch 08/24/20 08/24/20 08/24/20 15:33 17:36 17:36 WBC RBC Hgb Hct MCHC RDW Plt Count Neutrophils # Neutrophils # (Manual) Lymphocytes # Lymphocytes # (Manual) Monocytes # (Manual) Eosinophils # Eosinophils # (Manual) Basophils # Metamyelocytes # (Man) Myelocytes # (Manual) Promyelocytes # (Man) Nucleated RBCs ESR PT INR D-Dimer ABG pH ABG pCO2 ABG pO2 ABG HCO3 ABG Total CO2 26 H ABG O2 Saturation 98.0 H ABG Lactic Acid Sodium Potassium Chloride Carbon Dioxide BUN Creatinine Glucose POC Glucose (mg/dL) Plasma Lactic Acid Garrett 3.6 H* Calcium Ionized Calcium Matt Total Bilirubin AST ALT Alkaline Phosphatase Troponin I C-Reactive Protein Total Protein Albumin Procalcitonin Urine Appearance Urine Protein Urine Blood Urine Bilirubin Urine WBC Urine WBC Clumps Urine Bacteria Hyaline Casts Urine Mucus Urine Yeast (Budding) Mycoplasma pneumon IgG 1.65 H Crossmatch 08/24/20 08/24/20 08/24/20 17:39 18:00 22:10 WBC RBC Hgb Hct MCHC RDW Plt Count Neutrophils # Neutrophils # (Manual) Lymphocytes # Lymphocytes # (Manual) Monocytes # (Manual) Eosinophils # Eosinophils # (Manual) Basophils # Metamyelocytes # (Man) Myelocytes # (Manual) Promyelocytes # (Man) Nucleated RBCs ESR PT INR D-Dimer ABG pH ABG pCO2 ABG pO2 ABG HCO3 ABG Total CO2 ABG O2 Saturation ABG Lactic Acid Sodium 135 L Potassium Chloride 97 L Carbon Dioxide BUN 34 H Creatinine 2.80 H Glucose 120 H POC Glucose (mg/dL) 131 H Plasma Lactic Acid Garrett 4.0 H* Calcium 7.1 L Ionized Calcium Matt Total Bilirubin AST ALT Alkaline Phosphatase Troponin I C-Reactive Protein Total Protein Albumin Procalcitonin Urine Appearance Urine Protein Urine Blood Urine Bilirubin Urine WBC Urine WBC Clumps Urine Bacteria Hyaline Casts Urine Mucus Urine Yeast (Budding) Mycoplasma pneumon IgG Crossmatch 08/24/20 08/25/20 08/25/20 23:49 04:00 04:00 WBC 14.3 H RBC 2.25 L Hgb 6.5 L* Hct 20.9 L MCHC 30.9 L RDW Plt Count Neutrophils # Neutrophils # (Manual) 11.80 H Lymphocytes # Lymphocytes # (Manual) Monocytes # (Manual) Eosinophils # Eosinophils # (Manual) Basophils # Metamyelocytes # (Man) 0.14 H Myelocytes # (Manual) 0.29 H Promyelocytes # (Man) Nucleated RBCs ESR PT INR D-Dimer ABG pH ABG pCO2 ABG pO2 ABG HCO3 ABG Total CO2 ABG O2 Saturation ABG Lactic Acid Sodium 136 L Potassium Chloride 96 L Carbon Dioxide BUN 43 H Creatinine 2.79 H Glucose 113 H POC Glucose (mg/dL) 124 H Plasma Lactic Acid Garrett Calcium 7.0 L Ionized Calcium Matt Total Bilirubin 3.4 H AST 2874 H ALT 1469 H Alkaline Phosphatase 192 H Troponin I C-Reactive Protein Total Protein 5.1 L Albumin 2.8 L Procalcitonin Urine Appearance Urine Protein Urine Blood Urine Bilirubin Urine WBC Urine WBC Clumps Urine Bacteria Hyaline Casts Urine Mucus Urine Yeast (Budding) Mycoplasma pneumon IgG Crossmatch 08/25/20 08/25/20 08/25/20 04:00 04:00 04:00 WBC RBC Hgb Hct MCHC RDW Plt Count Neutrophils # Neutrophils # (Manual) Lymphocytes # Lymphocytes # (Manual) Monocytes # (Manual) Eosinophils # Eosinophils # (Manual) Basophils # Metamyelocytes # (Man) Myelocytes # (Manual) Promyelocytes # (Man) Nucleated RBCs ESR 28 H PT INR D-Dimer ABG pH ABG pCO2 ABG pO2 ABG HCO3 ABG Total CO2 ABG O2 Saturation ABG Lactic Acid Sodium Potassium Chloride Carbon Dioxide BUN Creatinine Glucose POC Glucose (mg/dL) Plasma Lactic Acid Garrett 3.9 H* Calcium Ionized Calcium Matt Total Bilirubin AST ALT Alkaline Phosphatase Troponin I C-Reactive Protein 356.2 H Total Protein Albumin Procalcitonin Urine Appearance Urine Protein Urine Blood Urine Bilirubin Urine WBC Urine WBC Clumps Urine Bacteria Hyaline Casts Urine Mucus Urine Yeast (Budding) Mycoplasma pneumon IgG Crossmatch 08/25/20 08/25/20 08/25/20 07:10 09:42 09:52 WBC RBC Hgb Hct MCHC RDW Plt Count Neutrophils # Neutrophils # (Manual) Lymphocytes # Lymphocytes # (Manual) Monocytes # (Manual) Eosinophils # Eosinophils # (Manual) Basophils # Metamyelocytes # (Man) Myelocytes # (Manual) Promyelocytes # (Man) Nucleated RBCs ESR PT INR D-Dimer ABG pH 7.47 H ABG pCO2 ABG pO2 74 L ABG HCO3 29 H ABG Total CO2 31 H ABG O2 Saturation ABG Lactic Acid Sodium Potassium Chloride Carbon Dioxide BUN Creatinine Glucose POC Glucose (mg/dL) Plasma Lactic Acid Garrett 2.9 H* 2.9 H* Calcium Ionized Calcium Matt Total Bilirubin AST ALT Alkaline Phosphatase Troponin I C-Reactive Protein Total Protein Albumin Procalcitonin Urine Appearance Urine Protein Urine Blood Urine Bilirubin Urine WBC Urine WBC Clumps Urine Bacteria Hyaline Casts Urine Mucus Urine Yeast (Budding) Mycoplasma pneumon IgG Crossmatch 08/25/20 08/25/20 08/25/20 16:40 16:40 16:42 WBC 14.6 H RBC 1.80 L Hgb 5.2 L* Hct 16.7 L* MCHC RDW 15.6 H Plt Count 133 L Neutrophils # Neutrophils # (Manual) 12.50 H Lymphocytes # Lymphocytes # (Manual) Monocytes # (Manual) Eosinophils # Eosinophils # (Manual) Basophils # Metamyelocytes # (Man) 0.29 H Myelocytes # (Manual) 0.15 H Promyelocytes # (Man) Nucleated RBCs 3 H ESR PT INR D-Dimer ABG pH ABG pCO2 ABG pO2 ABG HCO3 ABG Total CO2 ABG O2 Saturation ABG Lactic Acid Sodium Potassium Chloride Carbon Dioxide BUN 27 H Creatinine 1.94 H Glucose 124 H POC Glucose (mg/dL) 131 H Plasma Lactic Acid Garrett Calcium 7.9 L Ionized Calcium Matt Total Bilirubin 3.3 H AST 1638 H ALT 1199 H Alkaline Phosphatase 241 H Troponin I C-Reactive Protein Total Protein 5.0 L Albumin 2.7 L Procalcitonin Urine Appearance Urine Protein Urine Blood Urine Bilirubin Urine WBC Urine WBC Clumps Urine Bacteria Hyaline Casts Urine Mucus Urine Yeast (Budding) Mycoplasma pneumon IgG Crossmatch 08/25/20 08/25/20 08/25/20 16:46 17:17 17:17 WBC RBC Hgb Hct MCHC RDW Plt Count Neutrophils # Neutrophils # (Manual) Lymphocytes # Lymphocytes # (Manual) Monocytes # (Manual) Eosinophils # Eosinophils # (Manual) Basophils # Metamyelocytes # (Man) Myelocytes # (Manual) Promyelocytes # (Man) Nucleated RBCs ESR PT 18.3 H INR 1.9 H D-Dimer ABG pH 7.46 H ABG pCO2 ABG pO2 67 L ABG HCO3 27 H ABG Total CO2 29 H ABG O2 Saturation 93.5 L ABG Lactic Acid 3.7 H* Sodium Potassium Chloride Carbon Dioxide BUN Creatinine Glucose POC Glucose (mg/dL) Plasma Lactic Acid Garrett Calcium Ionized Calcium Matt Total Bilirubin AST ALT Alkaline Phosphatase Troponin I C-Reactive Protein Total Protein Albumin Procalcitonin Urine Appearance Urine Protein Urine Blood Urine Bilirubin Urine WBC Urine WBC Clumps Urine Bacteria Hyaline Casts Urine Mucus Urine Yeast (Budding) Mycoplasma pneumon IgG Crossmatch 08/25/20 08/25/20 08/26/20 18:19 23:46 03:50 WBC 29.6 H RBC 3.54 L Hgb 10.8 L D Hct 32.6 L MCHC RDW Plt Count Neutrophils # Neutrophils # (Manual) 22.70 H Lymphocytes # Lymphocytes # (Manual) Monocytes # (Manual) 1.78 H Eosinophils # Eosinophils # (Manual) Basophils # Metamyelocytes # (Man) 0.89 H Myelocytes # (Manual) 0.59 H Promyelocytes # (Man) Nucleated RBCs 5 H ESR PT INR D-Dimer ABG pH ABG pCO2 ABG pO2 338 H ABG HCO3 26 H ABG Total CO2 27 H ABG O2 Saturation 100.0 H ABG Lactic Acid Sodium Potassium Chloride Carbon Dioxide BUN Creatinine Glucose POC Glucose (mg/dL) 153 H Plasma Lactic Acid Garrett Calcium Ionized Calcium Matt Total Bilirubin AST ALT Alkaline Phosphatase Troponin I C-Reactive Protein Total Protein Albumin Procalcitonin Urine Appearance Urine Protein Urine Blood Urine Bilirubin Urine WBC Urine WBC Clumps Urine Bacteria Hyaline Casts Urine Mucus Urine Yeast (Budding) Mycoplasma pneumon IgG Crossmatch 08/26/20 08/26/20 08/26/20 03:50 04:34 05:23 WBC RBC Hgb Hct MCHC RDW Plt Count Neutrophils # Neutrophils # (Manual) Lymphocytes # Lymphocytes # (Manual) Monocytes # (Manual) Eosinophils # Eosinophils # (Manual) Basophils # Metamyelocytes # (Man) Myelocytes # (Manual) Promyelocytes # (Man) Nucleated RBCs ESR PT INR D-Dimer ABG pH ABG pCO2 ABG pO2 ABG HCO3 26 H ABG Total CO2 27 H ABG O2 Saturation 97.1 H ABG Lactic Acid Sodium 134 L Potassium Chloride Carbon Dioxide BUN 40 H Creatinine 1.83 H Glucose 146 H POC Glucose (mg/dL) 127 H Plasma Lactic Acid Garrett Calcium 7.6 L Ionized Calcium Matt Total Bilirubin 3.3 H AST 1067 H ALT 993 H Alkaline Phosphatase 251 H Troponin I C-Reactive Protein Total Protein 4.9 L Albumin 2.5 L Procalcitonin Urine Appearance Urine Protein Urine Blood Urine Bilirubin Urine WBC Urine WBC Clumps Urine Bacteria Hyaline Casts Urine Mucus Urine Yeast (Budding) Mycoplasma pneumon IgG Crossmatch 08/26/20 08/26/20 08/26/20 11:58 17:18 23:59 WBC RBC Hgb Hct MCHC RDW Plt Count Neutrophils # Neutrophils # (Manual) Lymphocytes # Lymphocytes # (Manual) Monocytes # (Manual) Eosinophils # Eosinophils # (Manual) Basophils # Metamyelocytes # (Man) Myelocytes # (Manual) Promyelocytes # (Man) Nucleated RBCs ESR PT INR D-Dimer ABG pH ABG pCO2 ABG pO2 ABG HCO3 ABG Total CO2 ABG O2 Saturation ABG Lactic Acid Sodium Potassium Chloride Carbon Dioxide BUN Creatinine Glucose POC Glucose (mg/dL) 104 H 122 H 117 H Plasma Lactic Acid Garrett Calcium Ionized Calcium Matt Total Bilirubin AST ALT Alkaline Phosphatase Troponin I C-Reactive Protein Total Protein Albumin Procalcitonin Urine Appearance Urine Protein Urine Blood Urine Bilirubin Urine WBC Urine WBC Clumps Urine Bacteria Hyaline Casts Urine Mucus Urine Yeast (Budding) Mycoplasma pneumon IgG Crossmatch 08/27/20 08/27/20 08/27/20 03:32 03:32 05:27 WBC 28.1 H RBC 3.66 L Hgb 11.3 L Hct MCHC RDW 15.7 H Plt Count Neutrophils # Neutrophils # (Manual) 23.30 H Lymphocytes # Lymphocytes # (Manual) Monocytes # (Manual) 1.12 H Eosinophils # Eosinophils # (Manual) Basophils # Metamyelocytes # (Man) 0.56 H Myelocytes # (Manual) Promyelocytes # (Man) Nucleated RBCs 1 H ESR PT INR D-Dimer ABG pH 7.49 H ABG pCO2 33 L ABG pO2 71 L ABG HCO3 ABG Total CO2 26 H ABG O2 Saturation ABG Lactic Acid Sodium Potassium 3.3 L Chloride 109 H Carbon Dioxide BUN 38 H Creatinine 1.22 H Glucose 116 H POC Glucose (mg/dL) Plasma Lactic Acid Garrett Calcium 7.8 L Ionized Calcium Matt Total Bilirubin 3.5 H AST 330 H ALT 566 H Alkaline Phosphatase 320 H Troponin I C-Reactive Protein Total Protein 4.8 L Albumin 2.3 L Procalcitonin Urine Appearance Urine Protein Urine Blood Urine Bilirubin Urine WBC Urine WBC Clumps Urine Bacteria Hyaline Casts Urine Mucus Urine Yeast (Budding) Mycoplasma pneumon IgG Crossmatch 08/27/20 08/27/20 08/27/20 06:16 10:40 12:06 WBC RBC Hgb Hct MCHC RDW Plt Count Neutrophils # Neutrophils # (Manual) Lymphocytes # Lymphocytes # (Manual) Monocytes # (Manual) Eosinophils # Eosinophils # (Manual) Basophils # Metamyelocytes # (Man) Myelocytes # (Manual) Promyelocytes # (Man) Nucleated RBCs ESR PT INR D-Dimer ABG pH ABG pCO2 ABG pO2 ABG HCO3 ABG Total CO2 ABG O2 Saturation ABG Lactic Acid Sodium Potassium 3.4 L Chloride Carbon Dioxide BUN Creatinine Glucose POC Glucose (mg/dL) 109 H 111 H Plasma Lactic Acid Garrett Calcium Ionized Calcium Matt Total Bilirubin AST ALT Alkaline Phosphatase Troponin I C-Reactive Protein Total Protein Albumin Procalcitonin Urine Appearance Urine Protein Urine Blood Urine Bilirubin Urine WBC Urine WBC Clumps Urine Bacteria Hyaline Casts Urine Mucus Urine Yeast (Budding) Mycoplasma pneumon IgG Crossmatch 08/27/20 08/27/20 08/27/20 12:08 17:39 23:08 WBC 26.4 H RBC 3.50 L Hgb 11.1 L Hct 32.4 L MCHC RDW 15.9 H Plt Count 95 L Neutrophils # Neutrophils # (Manual) 20.30 H Lymphocytes # Lymphocytes # (Manual) Monocytes # (Manual) 1.58 H Eosinophils # Eosinophils # (Manual) 0.79 H Basophils # Metamyelocytes # (Man) 0.53 H Myelocytes # (Manual) 0.79 H Promyelocytes # (Man) 0.26 H Nucleated RBCs 2 H ESR PT INR D-Dimer ABG pH ABG pCO2 ABG pO2 ABG HCO3 ABG Total CO2 ABG O2 Saturation ABG Lactic Acid Sodium Potassium Chloride Carbon Dioxide BUN Creatinine Glucose POC Glucose (mg/dL) 142 H 114 H Plasma Lactic Acid Garrett Calcium Ionized Calcium Matt Total Bilirubin AST ALT Alkaline Phosphatase Troponin I C-Reactive Protein Total Protein Albumin Procalcitonin Urine Appearance Urine Protein Urine Blood Urine Bilirubin Urine WBC Urine WBC Clumps Urine Bacteria Hyaline Casts Urine Mucus Urine Yeast (Budding) Mycoplasma pneumon IgG Crossmatch 08/28/20 08/28/20 08/28/20 03:50 03:50 04:45 WBC 24.3 H RBC 3.45 L Hgb 10.7 L Hct 31.6 L MCHC RDW 16.0 H Plt Count 78 L Neutrophils # Neutrophils # (Manual) 19.60 H Lymphocytes # Lymphocytes # (Manual) Monocytes # (Manual) Eosinophils # Eosinophils # (Manual) 0.97 H Basophils # Metamyelocytes # (Man) 0.73 H Myelocytes # (Manual) 0.49 H Promyelocytes # (Man) Nucleated RBCs 2 H ESR PT INR D-Dimer ABG pH 7.53 H ABG pCO2 30 L ABG pO2 57 L* ABG HCO3 ABG Total CO2 26 H ABG O2 Saturation 92.1 L ABG Lactic Acid Sodium Potassium Chloride 110 H Carbon Dioxide BUN 46 H Creatinine Glucose 111 H POC Glucose (mg/dL) Plasma Lactic Acid Garrett Calcium 7.8 L Ionized Calcium Matt Total Bilirubin 3.5 H AST 112 H ALT 315 H Alkaline Phosphatase 312 H Troponin I C-Reactive Protein Total Protein 4.7 L Albumin 2.1 L Procalcitonin Urine Appearance Urine Protein Urine Blood Urine Bilirubin Urine WBC Urine WBC Clumps Urine Bacteria Hyaline Casts Urine Mucus Urine Yeast (Budding) Mycoplasma pneumon IgG Crossmatch 08/28/20 08/28/20 08/28/20 11:35 17:51 23:54 WBC RBC Hgb Hct MCHC RDW Plt Count Neutrophils # Neutrophils # (Manual) Lymphocytes # Lymphocytes # (Manual) Monocytes # (Manual) Eosinophils # Eosinophils # (Manual) Basophils # Metamyelocytes # (Man) Myelocytes # (Manual) Promyelocytes # (Man) Nucleated RBCs ESR PT INR D-Dimer ABG pH ABG pCO2 ABG pO2 ABG HCO3 ABG Total CO2 ABG O2 Saturation ABG Lactic Acid Sodium Potassium Chloride Carbon Dioxide BUN Creatinine Glucose POC Glucose (mg/dL) 134 H 119 H 121 H Plasma Lactic Acid Garrett Calcium Ionized Calcium Matt Total Bilirubin AST ALT Alkaline Phosphatase Troponin I C-Reactive Protein Total Protein Albumin Procalcitonin Urine Appearance Urine Protein Urine Blood Urine Bilirubin Urine WBC Urine WBC Clumps Urine Bacteria Hyaline Casts Urine Mucus Urine Yeast (Budding) Mycoplasma pneumon IgG Crossmatch 08/29/20 08/29/20 08/29/20 05:20 05:20 05:45 WBC 24.2 H RBC 3.47 L Hgb 10.6 L Hct 31.6 L MCHC RDW 16.3 H Plt Count 80 L Neutrophils # 18.5 H Neutrophils # (Manual) Lymphocytes # Lymphocytes # (Manual) Monocytes # (Manual) Eosinophils # 1.4 H Eosinophils # (Manual) Basophils # 0.3 H Metamyelocytes # (Man) Myelocytes # (Manual) Promyelocytes # (Man) Nucleated RBCs ESR PT INR D-Dimer ABG pH 7.50 H ABG pCO2 ABG pO2 56 L* ABG HCO3 27 H ABG Total CO2 28 H ABG O2 Saturation 90.8 L ABG Lactic Acid Sodium Potassium Chloride 109 H Carbon Dioxide BUN 41 H Creatinine Glucose 117 H POC Glucose (mg/dL) Plasma Lactic Acid Garrett Calcium 7.7 L Ionized Calcium Matt Total Bilirubin 3.4 H AST 69 H ALT 163 H Alkaline Phosphatase 315 H Troponin I C-Reactive Protein Total Protein 5.2 L Albumin 2.2 L Procalcitonin Urine Appearance Urine Protein Urine Blood Urine Bilirubin Urine WBC Urine WBC Clumps Urine Bacteria Hyaline Casts Urine Mucus Urine Yeast (Budding) Mycoplasma pneumon IgG Crossmatch 08/29/20 08/29/20 08/29/20 06:04 12:04 17:19 WBC RBC Hgb Hct MCHC RDW Plt Count Neutrophils # Neutrophils # (Manual) Lymphocytes # Lymphocytes # (Manual) Monocytes # (Manual) Eosinophils # Eosinophils # (Manual) Basophils # Metamyelocytes # (Man) Myelocytes # (Manual) Promyelocytes # (Man) Nucleated RBCs ESR PT INR D-Dimer ABG pH ABG pCO2 ABG pO2 ABG HCO3 ABG Total CO2 ABG O2 Saturation ABG Lactic Acid Sodium Potassium Chloride Carbon Dioxide BUN Creatinine Glucose POC Glucose (mg/dL) 116 H 129 H 128 H Plasma Lactic Acid Garrett Calcium Ionized Calcium Matt Total Bilirubin AST ALT Alkaline Phosphatase Troponin I C-Reactive Protein Total Protein Albumin Procalcitonin Urine Appearance Urine Protein Urine Blood Urine Bilirubin Urine WBC Urine WBC Clumps Urine Bacteria Hyaline Casts Urine Mucus Urine Yeast (Budding) Mycoplasma pneumon IgG Crossmatch 08/30/20 08/30/20 08/30/20 00:05 03:56 03:56 WBC 19.8 H RBC 3.47 L Hgb 10.2 L Hct 31.7 L MCHC RDW 16.2 H Plt Count 90 L Neutrophils # 15.8 H Neutrophils # (Manual) Lymphocytes # Lymphocytes # (Manual) Monocytes # (Manual) Eosinophils # Eosinophils # (Manual) Basophils # Metamyelocytes # (Man) Myelocytes # (Manual) Promyelocytes # (Man) Nucleated RBCs ESR PT INR D-Dimer ABG pH ABG pCO2 ABG pO2 ABG HCO3 ABG Total CO2 ABG O2 Saturation ABG Lactic Acid Sodium Potassium 3.4 L Chloride Carbon Dioxide BUN 43 H Creatinine Glucose 121 H POC Glucose (mg/dL) 117 H Plasma Lactic Acid Garrett Calcium 7.5 L Ionized Calcium Matt Total Bilirubin 5.2 H AST 68 H ALT 77 H Alkaline Phosphatase 332 H Troponin I C-Reactive Protein Total Protein 5.6 L Albumin 2.2 L Procalcitonin Urine Appearance Urine Protein Urine Blood Urine Bilirubin Urine WBC Urine WBC Clumps Urine Bacteria Hyaline Casts Urine Mucus Urine Yeast (Budding) Mycoplasma pneumon IgG Crossmatch 08/30/20 08/30/20 08/30/20 05:15 06:00 11:36 WBC RBC Hgb Hct MCHC RDW Plt Count Neutrophils # Neutrophils # (Manual) Lymphocytes # Lymphocytes # (Manual) Monocytes # (Manual) Eosinophils # Eosinophils # (Manual) Basophils # Metamyelocytes # (Man) Myelocytes # (Manual) Promyelocytes # (Man) Nucleated RBCs ESR PT INR D-Dimer ABG pH 7.55 H ABG pCO2 ABG pO2 72 L ABG HCO3 30 H ABG Total CO2 31 H ABG O2 Saturation ABG Lactic Acid Sodium Potassium Chloride Carbon Dioxide BUN Creatinine Glucose POC Glucose (mg/dL) 121 H 126 H Plasma Lactic Acid Garrett Calcium Ionized Calcium Matt Total Bilirubin AST ALT Alkaline Phosphatase Troponin I C-Reactive Protein Total Protein Albumin Procalcitonin Urine Appearance Urine Protein Urine Blood Urine Bilirubin Urine WBC Urine WBC Clumps Urine Bacteria Hyaline Casts Urine Mucus Urine Yeast (Budding) Mycoplasma pneumon IgG Crossmatch 08/30/20 08/30/20 08/30/20 15:30 17:20 23:43 WBC RBC Hgb Hct MCHC RDW Plt Count Neutrophils # Neutrophils # (Manual) Lymphocytes # Lymphocytes # (Manual) Monocytes # (Manual) Eosinophils # Eosinophils # (Manual) Basophils # Metamyelocytes # (Man) Myelocytes # (Manual) Promyelocytes # (Man) Nucleated RBCs ESR PT INR D-Dimer ABG pH ABG pCO2 ABG pO2 ABG HCO3 ABG Total CO2 ABG O2 Saturation ABG Lactic Acid Sodium Potassium 3.4 L Chloride Carbon Dioxide BUN Creatinine Glucose POC Glucose (mg/dL) 128 H 106 H Plasma Lactic Acid Garrett Calcium Ionized Calcium Matt Total Bilirubin AST ALT Alkaline Phosphatase Troponin I C-Reactive Protein Total Protein Albumin Procalcitonin Urine Appearance Urine Protein Urine Blood Urine Bilirubin Urine WBC Urine WBC Clumps Urine Bacteria Hyaline Casts Urine Mucus Urine Yeast (Budding) Mycoplasma pneumon IgG Crossmatch 08/31/20 08/31/20 08/31/20 03:33 03:33 05:25 WBC 15.1 H RBC 3.40 L Hgb 10.0 L Hct 30.6 L MCHC RDW 16.0 H Plt Count 129 L Neutrophils # 12.0 H Neutrophils # (Manual) Lymphocytes # Lymphocytes # (Manual) Monocytes # (Manual) Eosinophils # Eosinophils # (Manual) Basophils # Metamyelocytes # (Man) Myelocytes # (Manual) Promyelocytes # (Man) Nucleated RBCs ESR PT INR D-Dimer ABG pH 7.58 H* ABG pCO2 ABG pO2 65 L ABG HCO3 36 H ABG Total CO2 37 H ABG O2 Saturation ABG Lactic Acid Sodium Potassium 3.2 L Chloride Carbon Dioxide 33 H BUN 48 H Creatinine Glucose 124 H POC Glucose (mg/dL) Plasma Lactic Acid Garrett Calcium 7.3 L Ionized Calcium Matt 4.2 L Total Bilirubin 6.7 H AST 67 H ALT 57 H Alkaline Phosphatase 349 H Troponin I C-Reactive Protein Total Protein Albumin 2.4 L Procalcitonin Urine Appearance Urine Protein Urine Blood Urine Bilirubin Urine WBC Urine WBC Clumps Urine Bacteria Hyaline Casts Urine Mucus Urine Yeast (Budding) Mycoplasma pneumon IgG Crossmatch 08/31/20 08/31/20 08/31/20 05:35 11:29 13:49 WBC RBC Hgb Hct MCHC RDW Plt Count Neutrophils # Neutrophils # (Manual) Lymphocytes # Lymphocytes # (Manual) Monocytes # (Manual) Eosinophils # Eosinophils # (Manual) Basophils # Metamyelocytes # (Man) Myelocytes # (Manual) Promyelocytes # (Man) Nucleated RBCs ESR PT INR D-Dimer ABG pH ABG pCO2 ABG pO2 ABG HCO3 ABG Total CO2 ABG O2 Saturation ABG Lactic Acid Sodium Potassium 3.1 L Chloride Carbon Dioxide BUN Creatinine Glucose POC Glucose (mg/dL) 121 H 121 H Plasma Lactic Acid Garrett Calcium Ionized Calcium Matt Total Bilirubin AST ALT Alkaline Phosphatase Troponin I C-Reactive Protein Total Protein Albumin Procalcitonin Urine Appearance Urine Protein Urine Blood Urine Bilirubin Urine WBC Urine WBC Clumps Urine Bacteria Hyaline Casts Urine Mucus Urine Yeast (Budding) Mycoplasma pneumon IgG Crossmatch 08/31/20 08/31/20 09/01/20 18:29 18:52 00:25 WBC RBC Hgb Hct MCHC RDW Plt Count Neutrophils # Neutrophils # (Manual) Lymphocytes # Lymphocytes # (Manual) Monocytes # (Manual) Eosinophils # Eosinophils # (Manual) Basophils # Metamyelocytes # (Man) Myelocytes # (Manual) Promyelocytes # (Man) Nucleated RBCs ESR PT INR D-Dimer ABG pH ABG pCO2 ABG pO2 ABG HCO3 ABG Total CO2 ABG O2 Saturation ABG Lactic Acid Sodium Potassium 3.1 L Chloride Carbon Dioxide BUN Creatinine Glucose POC Glucose (mg/dL) 131 H 113 H Plasma Lactic Acid Garrett Calcium Ionized Calcium Matt Total Bilirubin AST ALT Alkaline Phosphatase Troponin I C-Reactive Protein Total Protein Albumin Procalcitonin Urine Appearance Urine Protein Urine Blood Urine Bilirubin Urine WBC Urine WBC Clumps Urine Bacteria Hyaline Casts Urine Mucus Urine Yeast (Budding) Mycoplasma pneumon IgG Crossmatch 09/01/20 09/01/20 09/01/20 03:50 03:50 04:49 WBC 14.9 H RBC 3.16 L Hgb 9.5 L Hct 28.7 L MCHC RDW 16.0 H Plt Count 148 L Neutrophils # 12.2 H Neutrophils # (Manual) Lymphocytes # Lymphocytes # (Manual) Monocytes # (Manual) Eosinophils # Eosinophils # (Manual) Basophils # Metamyelocytes # (Man) Myelocytes # (Manual) Promyelocytes # (Man) Nucleated RBCs ESR PT INR D-Dimer ABG pH 7.61 H* ABG pCO2 ABG pO2 58 L* ABG HCO3 40 H* ABG Total CO2 41 H ABG O2 Saturation 93.0 L ABG Lactic Acid Sodium 146 H Potassium 3.3 L Chloride Carbon Dioxide 35 H BUN 52 H Creatinine Glucose 135 H POC Glucose (mg/dL) Plasma Lactic Acid Garrett Calcium 7.3 L Ionized Calcium Matt Total Bilirubin 4.6 H AST 49 H ALT 41 H Alkaline Phosphatase 297 H Troponin I C-Reactive Protein Total Protein Albumin 2.3 L Procalcitonin Urine Appearance Urine Protein Urine Blood Urine Bilirubin Urine WBC Urine WBC Clumps Urine Bacteria Hyaline Casts Urine Mucus Urine Yeast (Budding) Mycoplasma pneumon IgG Crossmatch 09/01/20 09/01/20 09/01/20 06:02 12:00 17:19 WBC RBC Hgb Hct MCHC RDW Plt Count Neutrophils # Neutrophils # (Manual) Lymphocytes # Lymphocytes # (Manual) Monocytes # (Manual) Eosinophils # Eosinophils # (Manual) Basophils # Metamyelocytes # (Man) Myelocytes # (Manual) Promyelocytes # (Man) Nucleated RBCs ESR PT INR D-Dimer ABG pH ABG pCO2 ABG pO2 ABG HCO3 ABG Total CO2 ABG O2 Saturation ABG Lactic Acid Sodium Potassium Chloride Carbon Dioxide BUN Creatinine Glucose POC Glucose (mg/dL) 140 H 107 H 132 H Plasma Lactic Acid Garrett Calcium Ionized Calcium Matt Total Bilirubin AST ALT Alkaline Phosphatase Troponin I C-Reactive Protein Total Protein Albumin Procalcitonin Urine Appearance Urine Protein Urine Blood Urine Bilirubin Urine WBC Urine WBC Clumps Urine Bacteria Hyaline Casts Urine Mucus Urine Yeast (Budding) Mycoplasma pneumon IgG Crossmatch 09/01/20 09/02/20 09/02/20 23:33 03:50 03:50 WBC 13.6 H RBC 2.80 L Hgb 8.4 L Hct 26.1 L MCHC RDW 16.1 H Plt Count Neutrophils # 10.2 H Neutrophils # (Manual) Lymphocytes # Lymphocytes # (Manual) Monocytes # (Manual) Eosinophils # Eosinophils # (Manual) Basophils # Metamyelocytes # (Man) Myelocytes # (Manual) Promyelocytes # (Man) Nucleated RBCs ESR PT INR D-Dimer ABG pH ABG pCO2 ABG pO2 ABG HCO3 ABG Total CO2 ABG O2 Saturation ABG Lactic Acid Sodium Potassium 3.2 L Chloride Carbon Dioxide 33 H BUN 66 H Creatinine 1.62 H Glucose 128 H POC Glucose (mg/dL) 125 H Plasma Lactic Acid Garrett Calcium 6.8 L Ionized Calcium Matt Total Bilirubin 4.1 H AST 67 H ALT 36 H Alkaline Phosphatase 253 H Troponin I C-Reactive Protein Total Protein 6.1 L Albumin 2.2 L Procalcitonin Urine Appearance Urine Protein Urine Blood Urine Bilirubin Urine WBC Urine WBC Clumps Urine Bacteria Hyaline Casts Urine Mucus Urine Yeast (Budding) Mycoplasma pneumon IgG Crossmatch 09/02/20 09/02/20 09/02/20 05:42 06:03 11:15 WBC RBC Hgb Hct MCHC RDW Plt Count Neutrophils # Neutrophils # (Manual) Lymphocytes # Lymphocytes # (Manual) Monocytes # (Manual) Eosinophils # Eosinophils # (Manual) Basophils # Metamyelocytes # (Man) Myelocytes # (Manual) Promyelocytes # (Man) Nucleated RBCs ESR PT INR D-Dimer ABG pH 7.49 H ABG pCO2 ABG pO2 ABG HCO3 33 H ABG Total CO2 34 H ABG O2 Saturation 99.1 H ABG Lactic Acid Sodium Potassium Chloride Carbon Dioxide BUN Creatinine Glucose POC Glucose (mg/dL) 129 H Plasma Lactic Acid Garrett Calcium Ionized Calcium Matt Total Bilirubin AST ALT Alkaline Phosphatase Troponin I C-Reactive Protein Total Protein Albumin Procalcitonin Urine Appearance Cloudy H Urine Protein Trace H Urine Blood Urine Bilirubin Urine WBC 6 H Urine WBC Clumps Urine Bacteria Hyaline Casts Urine Mucus Urine Yeast (Budding) Mycoplasma pneumon IgG Crossmatch 09/02/20 11:38 WBC RBC Hgb Hct MCHC RDW Plt Count Neutrophils # Neutrophils # (Manual) Lymphocytes # Lymphocytes # (Manual) Monocytes # (Manual) Eosinophils # Eosinophils # (Manual) Basophils # Metamyelocytes # (Man) Myelocytes # (Manual) Promyelocytes # (Man) Nucleated RBCs ESR PT INR D-Dimer ABG pH ABG pCO2 ABG pO2 ABG HCO3 ABG Total CO2 ABG O2 Saturation ABG Lactic Acid Sodium Potassium Chloride Carbon Dioxide BUN Creatinine Glucose POC Glucose (mg/dL) 131 H Plasma Lactic Acid Garrett Calcium Ionized Calcium Matt Total Bilirubin AST ALT Alkaline Phosphatase Troponin I C-Reactive Protein Total Protein Albumin Procalcitonin Urine Appearance Urine Protein Urine Blood Urine Bilirubin Urine WBC Urine WBC Clumps Urine Bacteria Hyaline Casts Urine Mucus Urine Yeast (Budding) Mycoplasma pneumon IgG Crossmatch Assessment and Plan Assessment: * New onset quadriplegia, unclear etiology. Patient is persistently septic. Rule out epidural abscess, discitis osteomyelitis producing quadriplegia. Doubt critical illness neuropathy, as patient should still be able to move some muscles proximally. Patient's reflexes are brisk particularly on the right with bilateral Babinski. * Status post CABG, followed by wound infection, requiring sternal debridement with persistent sepsis. * Septic shock with MSSA * Acute kidney injury * Acute transaminitis * CHF * Hypertension * History of cervical fusion, spinal stenosis in the past. Plan: * Patient's mentation, facial movements, and extraocular muscles are intact, therefore doubt primary intracranial process. Patient needs stat MRI of the cervical spine to rule out epidural abscess, discitis or osteomyelitis. Patient does have previous history of cervical spinal surgery, and infection could get seated in the previously placed metallic hardware from spine surgery. However because of being intubated, cannot have MRI. Instead we will perform stat CT of the brain and cervical spine without contrast (without contrast only due to patient being in renal failure) * Orthopedic spine consult rule out discitis/osteomyelitis/epidural abscess. * Stat CPK, TSH, aldolase. * We will follow.
--- NOTE | 2020-09-02 17:37 | CT ---
EXAMINATION TYPE: CT brain cspine wo con DATE OF EXAM: 09/02/2020 COMPARISON: CT brain 09/18/2017. CT chest 08/24/2020. HISTORY: Patient intubated at time of scan. Quadriplegia. CT DLP: 1496.2 mGycm Automated exposure control for dose reduction was used. TECHNIQUE: CT scan of the head and cervical spine are performed without contrast. FINDINGS: There is no acute intracranial hemorrhage, mass effect, or midline shift identified. The ventricles and sulci are within normal limits in size. The globes are intact and the visualized sin uses are clear. Cervical spine is visualized in its entirety from C1 through upper thoracic levels and demonstrates s atisfactory alignment without evidence of acute fracture or dislocation. Prevertebral soft tissue ap pears within normal limits. The C1-C2 articulation is unremarkable. There is a rotation of C3-C7 AC DF. There is multilevel moderate to severe cervical spondylosis. The visualized lung apices demonstra te ongoing patchy airspace opacity, partially imaged. Endotracheal and nasogastric tubes are in place . IMPRESSION: 1. There is no acute fracture or dislocation evident in the cervical spine. 2. No acute intracranial hemorrhage, mass effect, or midline shift is seen. 3. Ongoing airspace disease.
[2020-09-02 18:01] LABS: Glucose,Whole Blood 137 mg/dL (75-99)
--- NOTE | 2020-09-02 23:31 | PN ---
PROGRESS NOTE DATE OF SERVICE: 09/02/2020 REASON FOR FOLLOWUP: MSSA bacteremia secondary to sternal wound infection. INTERVAL HISTORY: The patient is currently afebrile. The patient is breathing comfortably. She seems to be slightly more awake and alert, on the mariely. The patient's FiO2 is currently stable at 50%. No significant purulent secretions in the ET reported. PHYSICAL EXAMINATION: Blood pressure 106/49 with pulse of 91, temperature 99.2. She is 99% on 50% FiO2. General description is an elderly female lying in bed in no distress. RESPIRATORY SYSTEM: Unlabored breathing. Clear to auscultation anteriorly. HEART: S1, S2. Regular rate and rhythm. ABDOMEN: Soft. No tenderness. LABS: Stool for C difficile is negative. Blood culture 09/01 so far negative. DIAGNOSTIC IMPRESSION AND PLAN: Patient with methicillin-susceptible Staphylococcus aeruginosa bacteremia secondary to the sternal wound infection, status post debridement of the wound. The patient was noted to have a slight jump in the creatinine. Nephrology has been concerned; could be related to nafcillin, which will be discontinued, and the patient will be switched over to cefazolin. Clinical course and cultures will be monitored closely. Continue with supportive care. MMODL / IJN: [id number] /
[2020-09-03 00:57] LABS: Glucose,Whole Blood 112 mg/dL (75-99)
[2020-09-03] MEDS: INSULIN ASPART (NovoLOG) 100 UNIT/ML VIAL SQ SCH ×4 (01:06→18:42)
[2020-09-03] MEDS: HEPARIN SODIUM,PORCINE 5,000 UNIT/ML 1 ML VIAL SQ SCH ×3 (01:07→16:49)
[2020-09-03] MEDS: SODIUM CHLORIDE 0.9% 1,000 ML IV SCH (01:23)
[2020-09-03 03:58] LABS: Anisocytosis Slight; Basophils # (A) 0.1 k/uL (0-0.2); Basophils % (A) 1 %; Eosinophils # (A) 0.9 k/uL (0-0.7); Eosinophils % (A) 6 %; HCT 27.1 % (34.0-46.0); HGB 8.3 gm/dL (11.4-16.0); Hypochromasia Marked; Lymphocytes # (A) 2.4 k/uL (1.0-4.8); Lymphocytes % (A) 15 %; MCH 29.1 pg (25.0-35.0); MCHC 30.7 g/dL (31.0-37.0); Mean Platelet Volume 10.2; Monocytes # (A) 0.4 k/uL (0-1.0); Monocytes % (A) 3 %; Neutrophils # (A) 11.4 k/uL (1.3-7.7); Neutrophils % (A) 74 %; Platelet Count 243 k/uL (150-450); Poikilocytosis Slight; RBC 2.85 m/uL (3.80-5.40); RDW 16.2 % (11.5-15.5); WBC 15.4 k/uL (3.8-10.6)
[2020-09-03 04:54] LABS: Albumin 2.4 g/dL (3.5-5.0); Calcium 7.3 mg/dL (8.4-10.2); Potassium 2.8 mmol/L (3.5-5.1); Total Bilirubin 2.4 mg/dL (0.2-1.3); Total Protein 6.5 g/dL (6.3-8.2)
[2020-09-03 05:05] LABS: ABG Base Excess 4.7 mmol/L; ABG HCO3 28 mmol/L (21-25); ABG Oxygen Saturation 99.7 % (94-97); ABG PCO2 39 mmHg (35-45); ABG PH 7.47 (7.35-7.45); ABG PO2 122 mmHg (83-108); ABG TCO2 30 mmol/L (19-24); Allen Test Performed? Yes
[2020-09-03] MEDS: POTASSIUM BICARBONATE/CIT AC 20 MEQ TABLET.EFF NG-TUBE SCH ×5 (06:29→13:08)
[2020-09-03] MEDS: ACETAMINOPHEN TAB 325 MG TAB PO PRN ×2 (06:29→22:52)
[2020-09-03 06:34] LABS: Glucose,Whole Blood 129 mg/dL (75-99)
[2020-09-03] MEDS ORDERED: PANTOPRAZOLE 40 MG TABLET PO SCH (07:30)
[2020-09-03] MEDS: ASPIRIN 325 MG TAB PO SCH (08:19)
[2020-09-03] MEDS: METOPROLOL TARTRATE 50 MG TAB PO SCH ×2 (08:19→22:52)
[2020-09-03] MEDS: CHLORHEXIDINE GLUCONATE 15 ML CUP MUCOUS MEM SCH ×2 (08:19→22:52)
[2020-09-03] MEDS: CLOPIDOGREL 75 MG TAB PO SCH (08:19)
[2020-09-03] MEDS: acetaZOLAMIDE 250 MG TAB PO SCH (08:19)
[2020-09-03] MEDS: PANTOPRAZOLE 40 MG/10 ML VIAL IVP SCH (08:19)
[2020-09-03] MEDS: DRY MOUTH SPRAY 44.3 SPRAY/44.3 ML SPRAY MUCOUS MEM SCH ×4 (08:20→22:53)
--- NOTE | 2020-09-03 08:40 | PN ---
PROGRESS NOTE Mrs. Alvarenga is a 75-year-old female status post coronary artery bypass grafting. He was readmitted with symptoms of progressive dyspnea, has evidence of pneumonia as well as sternal wound dehiscence. She remains intubated. She has a wound VAC in place and scheduled to undergo a sternal flap. She is in sinus mechanism. Hemodynamically, she is stable. She is on no vasopressor. She is tolerating feeding tube. She continues to be at this time on aspirin once a day, Plavix 75 mg daily, metoprolol tartrate 50 mg twice a day and Diamox 500 mg daily. PHYSICAL EXAMINATION: Blood pressure 120/50 with the heart rate in the 90s. LUNGS: Clear anteriorly. HEART: Regular rate and rhythm. S1, S2. No S3. No rub appreciated. Wound VAC in place. ABDOMEN: Soft. Positive bowel sounds. EXTREMITIES: No edema. LAB DATA: Lab data revealed hemoglobin of 8.3, white blood cells 15.4. Her pH 7.47, pCO2 of 39, pO2 of 122. Her bicarb is 28. Potassium is down to 2.8. BUN and creatinine 66 and 1.49. Her AST is 43, ALT of 33, which has almost normalized compared to admission. Her renal function improved compared to yesterday. IMPRESSION: 1. Respiratory failure with sternal wound infection and wound dehiscence. 2. Status post coronary artery bypass grafting. 3. Acute renal injury, resolved. 4. Elevated liver function test, improved. 5. History of hypertension. 6. History of mild pulmonary fibrosis. 7. History of hyperlipidemia. RECOMMENDATION: From the cardiac standpoint, will continue to follow her renal function. Her liver function almost back to normal. If they continue to normalize I will recommend to re-initiate statin. She is scheduled to undergo a sternal flap intervention and depending on her progress, further recommendation will be made. MMODL / IJN: [id number] / [id number]
--- NOTE | 2020-09-03 09:45 | P.PN ---
Subjective Progress Note Date: 09/03/20 HISTORY OF PRESENT ILLNESS This is a 75-year-old female patient of Dr. Rich Avila, Dr. Sloan and Dr. Guadalupe. She has a past medical history significant for hypertension, hype rlipidemia, pulmonary fibrosis, asthma, obesity, remote history of tobacco dependence with smoking 32 years ago, osteoarthritis, cervical stenosis post anterior cervical decompression, discectomy and fusion, TIA as a child at age 11 and family history of premature coronary artery disease with her father being diagnosed in his early 50s. Recently, the patient has been experiencing episodes of shortness of breath over the past 6 months with just minimal activity. She also complained of some lower extremity swelling which did resolve with some diuresis. she underwent a stress test which showed anterior wall ischemia with small reversible defect. a 2-D echocardiogram which showed mild aortic valve insufficiency, mild mitral valve regurgitation, mild tricuspid valve regurgitation and left ventricular function to be normal with an ejection fraction of 55%. Subsequently she underwent an elective heart catheterization on 07/27/2020 which demonstrated a left main stenosis with QING with a calculation of 2.6 mm, a 40% stenosis to her mid left anterior descending coronary artery and a 30% stenosis to her right coronary artery. Due to the patient's symptoms and findings on her heart catheterization of left main stenosis a consult was placed to Dr. Sethi from cardiothoracic surgery for further evaluation and treatment recommendations. During her preoperative workup her serum sodium level was found to be 120 and was admitted prior to surgery for treatment of hyponatremia. Last admission On 08/06/2020-08/19/20 the patient was admitted to the hospital for treatment of her hyponatremia, and once her hyponatremia was resolved on 08/10/2020, asubsequently taken to the operating room where Dr. Sethi performed a double vessel coronary artery bypass grafting surgery using the left internal mammary artery to left anterior setting coronary artery, a reverse greater saphenous vein graft from the aorta to the first obtuse marginal coronary artery, endoscopic harvesting of the left greater saphenous vein from the groin Upon completion of the surgery the patient was transferred to the intensive care unit where she was recovered, monitored hemodynamically and where she progressed cardiac rehabilitation phase Her oxygen was titrated down, she continued to work with physical/occupational therapy and cardiac rehabilitation, she was tolerating an oral diet, her pain was well controlled without narcotics and she was ready to be discharged home with [facility] care on postoperative day #9. Did not require home O2 on last admission however she required new medication changes including diuretics during that last admission. Patient comes in in worsening shortness of breath anasarca, no chest pain, has BARKER, edma without leg pain new medications from last visit was compliant, requiring lipitor 75bid, tolvaptan. meotprolol 75 bid plavix, lasix 40 mg daily losartain 25 asa 325, ferrous sulfate and fluconazole. patient comes in now for CHF, anarsarc ely pleural effusion, consult with dr Sethi. and cardiology, if okay will be cardiothoracic surgeon can also perform the thoracentesis, however with hypoxemia, also have requested Dr. Gamboa's services. Patient has a hemoglobin of 7.0 on and 3, platelet count of 305, hemoglobin right to admission was 8.0 denies any Hemoccult stools, creatinine was 1.60 from a previous of 0.9 blood pressure is in the low 90s systolic, pulse ox, 90 on 4 L nasal cannula, patient was not discharged with home O2 during her last admission 08/24: A-Team was called for mental status changes. Patient was found to have a blood pressure 99/65, heart rate of 85 and pulse ox of 96% on a nonrebreather with respiratory rate of 32. Patient was transferred to the ICU. She was started on vancomycin and cefepime. Patient has been seen by cardiology with plan to continue vasopressor support, patient may need pleurocentesis. Stat echocardiogram was done to rule out pericardial effusion or tamponade. Patient has been seen by nephrology for acute kidney injury secondary to ATN secondary to hypotension and cardiorenal syndrome. Patient is currently on bicarb drip, status post Lasix 80 mg IV once. Renal replacement therapy to be initiated immediately. Vascular consult in place for a dialysis catheter placement and start hemodialysis today with second treatment tomorrow. Sternal wound was producing thick yellowish brown fluid, was opened approximately 2 cm and deep culture was taken, packed and covered with 4 x 4 dressing. She is requiring vasopressors. She is hypothermic and warming blanket is in place.Patient had minimal output yesterday and none today. She is status post 2.5 L of fluids. 08/25 patient was examined in the ICU. She was able to maintain oxygenation on BiPAP overnight switch to high flow 15 m this morning. Patient did have episodes of agitation last night and was started on Seroquel. She did receive a dose of Seroquel prior to admission and was found to be resting comfortably. Patient is off pressors and bicarbonate drip and metabolic acidosis seemed to have cleared off. On evaluation of patient's lab, WBC is 14.3, hemoglobin 6.5 platelet 208 ABG this morning has a pH of 7.47 CO2 74. Bicarb 29. Sodium has improved to 126 chloride 96 BUN 43 creatinine 2.79 lactic acid has improved to 2.9 calcium 7 liver enzymes elevated AST at 2874 ALT 1469 alkaline phosphatase 192 CRP 356 BNP 13,000 UA does suggest some infection with WBC of 88 hyaline casts 33 protein 2+ urine blood trace nitrite negative leukocyte Estrace negative. Wound cultures positive for presumptive staph aureus. Patient's blood culture from yesterday are positive with presumptive staph aureus. Repeat blood cultures ordered. Patient received 1 unit of PRBCs for low hemoglobin. Urine output has improved to 20-40 mL's per hour. Patient did receive a dose of DDAVP for hyponatremia. Normal saline is running at 50 mL per hour. Did receive hemodialysis today with 2 L ultrafiltration. Patient was also noted to be in A. fib with RVR intermittently and her dose of Lopressor was increased to 25 mg every 8 hours. Continue daptomycin and cefepime for antibiotic coverage. Monitor patient's for QTC prolongation well on Seroquel. Patient has significant dehiscence of wound and may need I&D 08/26: She was intubated and placed on mechanical ventilation overnight with pulse ox of 96%, tidal volume 450, FiO2 50, PEEP of 5. Temperature max last evening was 101.2. Heart rate 82, blood pressure 120/53. WBC 9.6, hemoglobin 10.8, platelet count 159. Sodium 134, potassium 4.7, chloride 100, CO2 25, BUN 14 creatinine 1.83. Blood sugars running between 100 2753. Total bilirubin 3.3, AST 1067, ALT 993, alkaline phosphatase 251. Magnesium 2.1. Patient is on vasopressors. 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 Patient is also on propofol and Seroquel discontinued. Thoracic surgery is possible taking her to or for I&D and considering wound VAC. Patient is on Plavix. Echocardiogram reveals normal LV function and mild aortic stenosis. Patient is currently on daptomycin and cefepime per Dr. Mcintyre. Urine output remains low at 15-20 mL per hour. Should she is scheduled for third hemodialysis treatment today. Patient is scheduled for Lasix 80 mg IV this afternoon. 08/27 she remains in the ICU, intubated and mechanically ventilated. Patient is going to the OR for debridement today. Patient remains intubated on 50% FiO2 and PEEP of 5, assist control rate of 20volume 450. Continues to require Levophed at 11mcg/ hr . Blood clots and culture positive for MSSA. Urine output is 50-60 mL per hour. Patient continues to be on sedation from propofol at 50 max per KG permanent. IV fluids at KVO. Patient continues to have good urine output after a dose of 80 mg of IV Lasix today. Vision tolerated 2.5 L ultrafiltration yesterday and is started on hemodialysis on August 24. No holiday sedation today. Plan to continue Lasix 80 IV once daily and holding hemodialysis. Anticoagulation held for debridement. 08/28 patient remains in the ICU. Did have sternal Exploration and debridement yesterday remains sedated on propofol. Patient continues to have high temp of 101.6, to 233 tachycardic 111 blood pressure 106/51 oxygen saturation 95% on 50% FiO2. Labs suggest a leukocytosis of 24.3 hemoglobin stable at 10.7 platelet count has dipped dropped to 78, he really suggest a pH of 7.53 pCO2 30 PaO2 57, chloride of 110 potassium 3.5 and anion gap of 6 BUN 46 creatinine 0.9 calcium 7.8 ALT 3:15 alkaline phosphatase 312 AST 112 blood cultures from 08/26 positive for staph aureus. Urine output 1.2 L in 24 hours Repeat blood cultures sent today. Patient continues to be normal sinus rhythm not currently on any anticoagulation at the possibility of going for another debridement. Patient's continues to be on levo fed and still stays intubated. Continue IV Lasix. Patient initiated on IV Lasix 08/29: Patient remain in the ICU, remain on mechanical ventilation, sternal exploration and debridement was done and still have packing area within open wound at this point. Oxygenation is better patient is not 3 to be off vent at this point. Her urine output has been good and hemodynamically stable. 08/30: Patient still on mechanical ventilation, his sternum 1 and was changed today still have significant amount of infection and pus was packed still open. Patient remain on nafcillin and Moni mycin. Still having positive blood culture. 08/31: Patient is more awake today doing trial of weaning parameter try to get patient off the respirator, her incision and infection along the sternum is no change still have packing on still on IV antibiotics. Hemodynamically is more stable. 09/01: Patient evaluated in the ICU, continues on mechanical ventilation. Wound packing was removed yesterday, purulence was noted on the packing, deep near the heart and purulence around the heart. She continues on IV clindamycin and nafcillin. Patient was taken off sedation yesterday for a trial of weaning, but she became hypertensive and tachypneic so she is placed back on sedation. 09/02: Patient remains intubated and on mechanical ventilation with tidal volume 400, FiO2 of 50% and PEEP of 5. Patient has been off sedation since Monday. She is receiving OG tube feedings. She appears to be opening meaning her eyes and can shake her head. Otherwise not moving extremities. She has a wound VAC in place to the sternal wound. Wound cultures and blood culture positive for MSSA. She is scheduled for sternal wound excision and debridement with flap reconstruction and graft tomorrow with Dr. Whittaker. Repeat blood work reveals WBC of 13.6, hemoglobin 8.5. BUN 66 and creatinine 1.62, potassium 3.2 and has been replaced, blood sugars running between 107 and 132. Because renal functioning is worsening, nephrology has recommended holding nafcillin. Repeat chest x-ray reveals correlate for pneumonia, edema, ARDS. 09/03: She remains in the intensive care unit intubated and on mechanical ventilation with tidal volume 400, FiO2 40, PEEP of 5. Patient is awake with eyes open. She nodded her head no to having pain. She had a temperature this morning of 101.6 at 6 AM. Antibiotics are currently in the form of Kefzol. Repeat chest x-ray was done this morning and report is pending. Patient has been seen by neurology and doubt critical illness neuropathy.. CAT scan of the brain and cervical spine done that showed no acute fracture or dislocation in the cervical spine. No acute intracranial hemorrhage, mass effect or midline shift. Ongoing airspace disease. Cardiology has recommended reinitiating statin. Temperature max 101.6, heart rate 101, blood pressure 117/52, pulse ox 95%. Repeat blood work reveals WBC 15.4, hemoglobin 8.3, platelet count 243. Sodium 149, potassium 2.8, chloride 111, CO2 28, BUN 66 and creatinine 1.49. Total bilirubin 2.4, AST 43, ALT 33 and alkaline phosphatase 260. All previous blood cultures have been positive for staph aureus MSSA. A repeat blood culture on August 2029 showing no growth at 24 hours. REVIEW OF SYSTEMS Unable to obtain due to mental status change/intubation. PHYSICAL EXAMINATION Gen: This is a 75-year-old female. Patient is resting in ICU bed and appears to be comfortable. HEENT: Head is atraumatic, normocephalic. Pupils equal, round. Sclerae is anicteric. Patient intubated and on mechanical ventilation. NECK: Supple. No JVD. No lymphadenopathy. LUNGS: Diminished. No wheezes or rhonchi. No intercostal retractions. HEART: Regular rate and rhythm. 2/6 systolic murmur. Wound VAC in place to ster nal wound. ABDOMEN: Soft. Bowel sounds are present. No masses. No tenderness. EXTREMITIES: 2+ bilat pitting edema. No calf tenderness. NEUROLOGICAL: Patient is awake with eyes opened, nods to some questions. ASSESSMENT AND PLAN 1. Acute diastolic heart failure, (POA) EF 55%, mild AI and mild MR and mild TR, also complicated by severe protein calorie malnutrition, Cardiology consult appreciated. Patient is currently off Lasix. 2. Acute hypoxemic respiratory failure. (POA) Patient has underlying pulmonary hypertension as well, consult with coronary. Patient is intubated and on mechanical ventilation. Pulmonary medicine is managing. 3. Acute kidney injury secondary to ATN secondary to hypotension and cardiorenal syndrome. (POA) Patient is status post dialysis catheter placement, hemodialysis. Patient is followed closely by nephrology. 4. Hyperkalemia secondary to potassium supplementation, losartan and acute kidney injury as well as severe acidosis. (POA) Consult with nephrology appreciated. Continue medical management. 5. Metabolic acidosis secondary to acute kidney injury. (POA) 6. Metabolic encephalopathy secondary to acute kidney injury, acute heart failure, acute respiratory failure, metabolic acidosis and hyperkalemia. (POA) 7. Sepsis with septic shock with multiorgan failure with metabolic encephalopathy, acute kidney injury, acute heart failure, acute respiratory failure. (POA) status post sternal exploration and sternal debridement on August 27, Patient is off vasopressors. 8. Sepsis with sternal wound dehiscence. (POA) Status post sternal exploration and sternal debridement Infectious disease consult appreciated. Nafcillin was transitioned to Kefzol. 9. Acute blood loss anemia, postop, status post transfusion of 3 units of packed RBCs. 10. Hyponatremia. Continue to monitor. 11. CAD, with prior CABG performed on 08/10/2020, two-vessel, involving HOLLAND to LAD, and reverse greater saphenous vein to obtuse marginal coronary artery. Continue aspirin 325 mg daily, Plavix 75 mg daily, Toprol all 75 mg twice a day, 12. Severe protein calorie malnutrition, with anasarca and hypotension. 13. History of pulmonary fibrosis. Continue duo nebs and albuterol 14. Asthma, mild intermittent. Continue ipratropium albuterol nebulizers 15. Hyperlipidemia. Continue statin daily 16. Hypertension. Currently hypotensive 17. GI prophylaxis. Pantoprazole 18. Critical care neuropathy. Nephrology consult appreciated. 19. DVT prophylaxis: SCDs 20. Blood sugar management in a nondiabetic. insulin scale every 6 hours. 21. Acute transaminitis in [place] to hypoperfusion. Prognosis guarded DISCHARGE PLAN TBD. Impression and plan of care have been directed as dictated by the signing physician. Monica Fragoso nurse practitioner acting as scribe for signing lalita huff. Objective - Vital Signs Vital signs: Vital Signs Temp 100.1 F H 09/03/20 08:00 Pulse 101 H 09/03/20 08:00 Resp 22 09/03/20 08:00 BP 117/52 09/03/20 08:00 Pulse Ox 95 09/03/20 08:00 Intake & Output 09/02/20 09/03/20 09/03/20 18:59 06:59 18:59 Intake Total 1473 1208 278 Output Total 1120 2885 200 Balance 172 -1330 78 Weight 85.7 kg 83.6 kg Intake: IV 495 360 70 Nafcillin 2 gm In 100 100 Dextrose 5% in Water 100 ml @ 50 mls/hr IVPB Q4HR [facility] Rx#:[id number] Sodium Chloride 0.9% 1, 395 160 20 000 ml @ 20 mls/hr IV . Q24H [facility] Rx#:[id number] ceFAZolin 2 gm In Sodium 100 50 Chloride 0.9% 50 ml @ 100 mls/hr IVPB Q8HR [facility] Rx# :[id number] Tube Feeding 648 648 108 Other 330 200 100 Output: Drainage 100 Wound Vac 100 Urine 1020 1485 200 Stool 1400 Other: Voiding Method Indwelling Catheter Indwelling Catheter ABP, PAP, CO, CI - Last Documented Arterial Blood Pressure 153/92 - Labs CBC & Chem 7: 09/03/20 03:32 09/03/20 03:32 Labs: Abnormal Lab Results - Last 24 Hours (Table) 09/02/20 09/02/20 09/02/20 Range/Units 11:15 11:38 17:59 WBC (3.8-10.6) k/uL RBC (3.80-5.40) m/uL Hgb (11.4-16.0) gm/dL Hct (34.0-46.0) % MCHC (31.0-37.0) g/dL RDW (11.5-15.5) % Neutrophils # (1.3-7.7) k/uL Eosinophils # (0-0.7) k/uL ABG pH (7.35-7.45) ABG pO2 (83-108) mmHg ABG HCO3 (21-25) mmol/L ABG Total CO2 (19-24) mmol/L ABG O2 Saturation (94-97) % Sodium (137-145) mmol/L Potassium (3.5-5.1) mmol/L Chloride (98-107) mmol/L BUN (7-17) mg/dL Creatinine (0.52-1.04) mg/dL Glucose (74-99) mg/dL POC Glucose (mg/dL) 131 H 137 H (75-99) mg/dL Calcium (8.4-10.2) mg/dL Total Bilirubin (0.2-1.3) mg/dL AST (14-36) U/L Alkaline Phosphatase (38-126) U/L Albumin (3.5-5.0) g/dL Urine Appearance Cloudy H (Clear) Urine Protein Trace H (Negative) Urine WBC 6 H (0-5) /hpf 09/02/20 09/03/2009/03/21 Range/Units 18:52 00:56 03:32 WBC (3.8-10.6) k/uL RBC (3.80-5.40) m/uL Hgb (11.4-16.0) gm/dL Hct (34.0-46.0) % MCHC (31.0-37.0) g/dL RDW (11.5-15.5) % Neutrophils # (1.3-7.7) k/uL Eosinophils # (0-0.7) k/uL ABG pH (7.35-7.45) ABG pO2 (83-108) mmHg ABG HCO3 (21-25) mmol/L ABG Total CO2 (19-24) mmol/L ABG O2 Saturation (94-97) % Sodium 149 H (137-145) mmol/L Potassium 3.3 L 2.8 L (3.5-5.1) mmol/L Chloride 111 H (98-107) mmol/L BUN 66 H (7-17) mg/dL Creatinine 1.49 H (0.52-1.04) mg/dL Glucose 129 H (74-99) mg/dL POC Glucose (mg/dL) 112 H (75-99) mg/dL Calcium 7.3 L (8.4-10.2) mg/dL Total Bilirubin 2.4 H (0.2-1.3) mg/dL AST 43 H (14-36) U/L Alkaline Phosphatase 260 H (38-126) U/L Albumin 2.4 L (3.5-5.0) g/dL Urine Appearance (Clear) Urine Protein (Negative) Urine WBC (0-5) /hpf 09/03/20 09/03/20 09/03/20 Range/Units 03:32 05:01 06:32 WBC 15.4 H (3.8-10.6) k/uL RBC 2.85 L (3.80-5.40) m/uL Hgb 8.3 L (11.4-16.0) gm/dL Hct 27.1 L (34.0-46.0) % MCHC 30.7 L (31.0-37.0) g/dL RDW 16.2 H (11.5-15.5) % Neutrophils # 11.4 H (1.3-7.7) k/uL Eosinophils # 0.9 H (0-0.7) k/uL ABG pH 7.47 H (7.35-7.45) ABG pO2 122 H (83-108) mmHg ABG HCO3 28 H (21-25) mmol/L ABG Total CO2 30 H (19-24) mmol/L ABG O2 Saturation 99.7 H (94-97) % Sodium (137-145) mmol/L Potassium (3.5-5.1) mmol/L Chloride (98-107) mmol/L BUN (7-17) mg/dL Creatinine (0.52-1.04) mg/dL Glucose (74-99) mg/dL POC Glucose (mg/dL) 129 H (75-99) mg/dL Calcium (8.4-10.2) mg/dL Total Bilirubin (0.2-1.3) mg/dL AST (14-36) U/L Alkaline Phosphatase (38-126) U/L Albumin (3.5-5.0) g/dL Urine Appearance (Clear) Urine Protein (Negative) Urine WBC (0-5) /hpf Microbiology - Last 24 Hours (Table) 08/30/20 03:56 Blood Culture - Preliminary Blood No Growth after 96 hours 09/01/20 14:40 Blood Culture - Preliminary Blood No Growth after 24 hours 08/31/20 03:33 Blood Culture Gram Stain - Final Blood Blood Culture - Final Staphylococcus aureus
--- NOTE | 2020-09-03 09:59 | XR ---
EXAMINATION TYPE: XR chest 1V portable DATE OF EXAM: 09/03/2020 COMPARISON: 09/02/2020 HISTORY: Shortness of breath TECHNIQUE: Single frontal view of the chest is obtained. FINDINGS: ET and NG tube stable. Postsurgical changes noted. Arthropathy of the shoulders with calci fications in the right axilla and along the course of the left rotator cuff. Coarsened interstitium w ith basilar areas of consolidation. IMPRESSION: 1. Postsurgical changes with diffuse interstitial pattern and basilar infiltrate stable in appearance .
--- NOTE | 2020-09-03 10:00 | P.PN ---
Subjective Progress Note Date: 09/03/20 Principal diagnosis: Respiratory failure, sternal wound infection Reevaluated today on 08/28/2020, patient remains in the ICU, intubated and mechanically ventilated. Her assist-control rate is 20, volume is 450 FiO2 is 50% PEEP was at 5 and I increased it up to 8. ABG showed a pO2 of 57 pCO2 of 30 pH of 7.53. O2 saturation on the monitor is 96%. Patient remains on norepinep hrine at 0.07 mcg/kg/m, she is also on propofol at 65 mcg/kg/m. Patient is on enteral feeding. Remains on cefepime and daptomycin for her positive blood cultures/MSSA. Patient is also on Lasix at 80 mg IV push every 24 hours. Her urine output has been good. And her chest x-ray continues to show mild congestive heart failure changes. Patient has leukocytosis with WBC count 24.3, electrolytes are normal BUN is 46 creatinine 0.90. Liver enzymes are trending down slowly Patient was reevaluated today on 08/29/2020, remains intubated and mechanically ventilated. She is on assist control rate of 20 tidal volume is 450 FiO2 is 50% and PEEP of 8. ABG showed a pO2 of 56 pCO2 of 35 pH of 7.50 however her O2 saturation on the monitor is 99%. Patient remains on norepinephrine at 0.05 mcg/kg/m, he is on propofol at 70 mcg/kg/m, she is on Lasix 80 mg IV push daily, with good urine output. IV fluid mostly at KVO. Antibiotics garzon she is on cefazolin and clindamycin. Patient had MSSA in the blood and in the sternal wound. Chest x-ray continues to show evidence of pulmonary edema, and now she seems to be developing some consolidation in the right upper lobe medially. Her sternum remains open, decision regarding sternal closure will be made in the next 24-48 hours by thoracic surgery. Patient continues to have leukocytosis with WBC count of 24.2 hemoglobin is 10.6, basic metabolic profile is normal renal profile is normal not requiring any further dialysis, and she has good urine output responding well to diuretics. Liver enzymes seem to be trending down 08/30/2020 the patient remains intubated on a mechanical ventilator. This morning, she has an assist-control at the rate of 20 with tidal volume of 450 and the flow of 70 with a FiO2 of 50% with a PEEP of 8. The morning blood gases from today showed a pH of 7.55, and the pCO2 is a 35 with a pO2 of 72. Necessity ventilator changes were done. Peak airway pressure was 37. Static pressure was 32. Chest x-ray still showing diffuse bilateral pulmonary infiltrates consistent with pneumonia although possibility of an acute lung injury/ARDS cannot be completely excluded. ET tube is in a good location. The patient this morning is sedated with propofol which is running at 50 mcg/kg per minute. Sedation holiday was given this morning to evaluate her mental status. I was told yesterday that the patient did have some diminished level of consciousness once she was off the sedation. Nevertheless she was placed on sedation again to maintain synchrony with the mechanical ventilator. She is septic with staff aureus, MSSA has been cultured in her sputum, and her blood and in her sternal wound. Her current antibiotic coverage including a combination of nafcillin and clindamycin. She is afebrile. Sternal wound is being monitored by the cardiothoracic surgery team. Daily dressing changes are being done. There is still output which is purulent according to the nursing staff. Pressors and the patient is currently on norepinephrine running at 0.04 mcg/kg per minute. Renal function is improving and the creatinine is down to 0.78. The white cell count is at 19.8 with hemoglobin of 10.2 and a platelet count of 90. Liver function tests continue to improve with an AST of 68, ALT of 77 and the last blood culture was taken from 08/29/2020 was again positive for gram-positive bacteria most likely MSSA. The patient has orogastric tube in place and she is receiving vital high protein at a rate of 23 mL an hour. This is at goal for now. No abdominal distention. No increased residuals for now. She is afebrile. Progress note dated 08/31/2020. This is a 75-year-old female was admitted to the hospital on August 22, she came in for a sternal wound infection, and worsening respiratory status with heart failure. Unfortunately, she developed severe hypoxemic respiratory failure and required intubation on August 25. She was discovered to have a sternal wound infection and went to the operating room for debridement, on August 27. Microbiology is positive for methicillin sensitive staph aureus, and she remains on nafcillin and clindamycin. This patient initially had a two- vessel bypass grafting on 08/10/2020, and was discharged on 08/19/2020. Currently, the patient remains on the volume assist control mode, rate is 20, tidal volume is 400, FiO2 40%, and PEEP of 8. Blood gases show a PaO2 of 65, a PaCO2 39, and a pH is 7.58. His blood gases consistent with a relative hypoxemia, and a severe metabolic alkalosis. Currently, the norepinephrine has been weaned off. She remains on saline at 25 mL an hour, and she is currently not on any sedation. She's getting vital high protein at 23 mL an hour with a goal of 28 mL an hour. Today, regarding do a spontaneous breathing trial, on pressor support of 15, CPAP of 5. If the patient shows any signs of deterioration, such as tachycardia, tachypnea, hypertension, diaphoresis, higher respiratory rates, and/or lower tidal volumes, the patient will be switched back to the volume assist control mode with the. Progress note dated 09/01/2020. 75-year-old female admitted back on August 22. She came into the hospital with a sternal wound infection. In addition, she had worsening respiratory status, with heart failure. She developed reinaldo hypoxemic respiratory failure and required intubation on August 25. At that time, she was discovered to have a sternal wound infection, secondary to staph aureus, and went to the perating room for debridement. This was on August 27. Microbiology is positive for methicillin sensitive staph aureus, and she remains on nafcillin and clindamycin. The patient had a two-vessel bypass grafting done on August 10, and was discharged on August 19. Currently, she remains on the volume assist control modality, the rate of 20, tidal volume 400, FiO2 50%, and PEEP of 5. This morning's blood gases, show a PaO2 of 58, a PaCO2 of 40, and a pH is 7.61. These arterial blood gases are consistent with hypoxemia, and a severe metabolic alkalosis. The FiO2 was increased from 40-50%. Currently, she is on propofol at 20 mcg/kg/m, saline at 15 mL an hour, and vital high protein at 54 mL an hour, which is goal. Today, we are going to ensure that her potassium exceeds 4.5, DC her Lasix, and add Diamox 500 mg a day. We also increased the FiO2 earlier this morning to 50%. She will not wean with his profound metabolic alkalosis, and likely, we will hypoventilate and retain carbon dioxide, to balance out her pH. Hence, it's imperative that we treat the alkalosis aggressively. The patient is seen today 09/02/2020 in follow-up in the intensive care unit. She remains intubated on the mechanical ventilator currently an assist-control mode with a rate of 20, tidal volume 400, FiO2 50% and a PEEP of 5. Morning blood gases reveal a P O2 of 108, pCO2 43, pH 7.49. She remains on 0.9 normal saline at 20 miles per hour. She is being nourished with vital HP at 54 ML's per hour which is goal. Chest x-ray reveals endotracheal tube and nasogastric tubes in good position. Bilateral airspace disease, mixed interstitial changes are noted. No evidence of pneumothorax. Possible ARDS. Wound VAC remains in place to the sternal wound. She is status post 3 units of packed red blood cells this admission. Current hemoglobin 8.4. Platelet count 166. White count 13.6. Sodium 145. Potassium 3.2. Creatinine 1.62. AST 67. ALT 36. Blood, sputum, wound cultures all positive for methicillin sensitive staph aureus. Remains on nafcillin. Continued on bronchodilators, Diamox. Heparin for DVT prophylaxis. Plan is for muscle flap tomorrow. She'll receive another weaning trial of pressure support of 10 and CPAP of 5 today. The patient is seen today 09/03/2020 in follow-up in the intensive care unit. She remains intubated on mechanical ventilator. Assist-control mode. Rate of 20. Tidal volume 400. FiO2 50% and a PEEP of 5. Morning blood gases revealed a pO2 of 122,. PCO2 39. PH 7.46. She remains off sedation. She has 0.9 normal saline at 20 miles per hour. Tube feedings are currently on hold. The plan is for muscle flap regarding the sternal wound today. Wound VAC currently in place. She is currently on Ancef. Blood and wound cultures are positive for MSSA. White count 15.4. Hemoglobin 8.3. Sodium 149. Potassium 2.8. Creatinine 1.49. AST 43. ALT 33. Albumin 2.4. She is currently febrile. T- max of 101.6 earlier this morning. Chest x-ray pending. Objective - Vital Signs Vital signs: Vital Signs Temp 100.1 F H 09/03/20 08:00 Pulse 101 H 09/03/20 08:00 Resp 22 09/03/20 08:00 BP 117/52 09/03/20 08:00 Pulse Ox 95 09/03/20 08:00 Intake & Output 09/02/20 09/03/20 09/03/20 18:59 06:59 18:59 Intake Total 1473 1208 278 Output Total 1120 2885 200 Balance 496 -5063 78 Weight 85.7 kg 83.6 kg Intake: IV 495 360 70 Nafcillin 2 gm In 100 100 Dextrose 5% in Water 100 ml @ 50 mls/hr IVPB Q4HR [facility] Rx#:[id number] Sodium Chloride 0.9% 1, 395 160 20 000 ml @ 20 mls/hr IV . Q24H [facility] Rx#:[id number] ceFAZolin 2 gm In Sodium 100 50 Chloride 0.9% 50 ml @ 100 mls/hr IVPB Q8HR [facility] Rx# :[id number] Tube Feeding 648 648 108 Other 330 200 100 Output: Drainage 100 Wound Vac 100 Urine 1020 1485 200 Stool 1400 Other: Voiding Method Indwelling Catheter Indwelling Catheter ABP, PAP, CO, CI - Last Documented Arterial Blood Pressure 153/92 - Exam PHYSICAL EXAMINATION: Revealed a 75-year-old female, obese, intubated. Unable to move extremities. Appears to blink eyes appropriately. HEENT:, PERRLA, EOMI, nonicteric. Moist mucous membranes endotracheal tube and orogastric tubes are intact. CHEST EXAMINATION: Symmetrical chest expansion, rhonchi noted bilaterally. Patient has wound VAC over the sternal wound. HEART EXAMINATION: Normal S1 and S2, 2/6 systolic murmur throughout the p recordium. ABDOMEN: Obese, Soft, nontender. Bowel sounds are heard. No organomegaly noted. EXTREMITIES:1+ peripheral pulses with evidence of mild peripheral edema and no calf tenderness noted. NEUROLOGIC EXAMINATION: Only blinking eyes appropriately. Psychiatric: Intubated, could not assess. Skin: Patient has a sternal wound and wound VAC in place. - Labs CBC & Chem 7: 09/03/20 03:32 09/03/20 03:32 Labs: Abnormal Lab Results - Last 24 Hours (Table) 09/02/20 09/02/20 09/02/20 Range/Units 11:15 11:38 17:59 WBC (3.8-10.6) k/uL RBC (3.80-5.40) m/uL Hgb (11.4-16.0) gm/dL Hct (34.0-46.0) % MCHC (31.0-37.0) g/dL RDW (11.5-15.5) % Neutrophils # (1.3-7.7) k/uL Eosinophils # (0-0.7) k/uL ABG pH (7.35-7.45) ABG pO2 (83-108) mmHg ABG HCO3 (21-25) mmol/L ABG Total CO2 (19-24) mmol/L ABG O2 Saturation (94-97) % Sodium (137-145) mmol/L Potassium (3.5-5.1) mmol/L Chloride (98-107) mmol/L BUN (7-17) mg/dL Creatinine (0.52-1.04) mg/dL Glucose (74-99) mg/dL POC Glucose (mg/dL) 131 H 137 H (75-99) mg/dL Calcium (8.4-10.2) mg/dL Total Bilirubin (0.2-1.3) mg/dL AST (14-36) U/L Alkaline Phosphatase (38-126) U/L Albumin (3.5-5.0) g/dL Urine Appearance Cloudy H (Clear) Urine Protein Trace H (Negative) Urine WBC 6 H (0-5) /hpf 09/02/20 09/03/20 09/03/20 Range/Units 18:52 00:56 03:32 WBC (3.8-10.6) k/uL RBC (3.80-5.40) m/uL Hgb (11.4-16.0) gm/dL Hct (34.0-46.0) % MCHC (31.0-37.0) g/dL RDW (11.5-15.5) % Neutrophils # (1.3-7.7) k/uL Eosinophils # (0-0.7) k/uL ABG pH (7.35-7.45) ABG pO2 (83-108) mmHg ABG HCO3 (21-25) mmol/L ABG Total CO2 (19-24) mmol/L ABG O2 Saturation (94-97) % Sodium 149 H (137-145) mmol/L Potassium 3.3 L 2.8 L (3.5-5.1) mmol/L Chloride 111 H (98-107) mmol/L BUN 66 H (7-17) mg/dL Creatinine 1.49 H (0.52-1.04) mg/dL Glucose 129 H (74-99) mg/dL POC Glucose (mg/dL) 112 H (75-99) mg/dL Calcium 7.3 L (8.4-10.2) mg/dL Total Bilirubin 2.4 H (0.2-1.3) mg/dL AST 43 H (14-36) U/L Alkaline Phosphatase 260 H (38-126) U/L Albumin 2.4 L (3.5-5.0) g/dL Urine Appearance (Clear) Urine Protein (Negative) Urine WBC (0-5) /hpf 09/03/20 09/03/20 09/03/20 Range/Units 03:32 05:01 06:32 WBC 15.4 H (3.8-10.6) k/uL RBC 2.85 L (3.80-5.40) m/uL Hgb 8.3 L (11.4-16.0) gm/dL Hct 27.1 L (34.0-46.0) % MCHC 30.7 L (31.0-37.0) g/dL RDW 16.2 H (11.5-15.5) % Neutrophils # 11.4 H (1.3-7.7) k/uL Eosinophils # 0.9 H (0-0.7) k/uL ABG pH 7.47 H (7.35-7.45) ABG pO2 122 H (83-108) mmHg ABG HCO3 28 H (21-25) mmol/L ABG Total CO2 30 H (19-24) mmol/L ABG O2 Saturation 99.7 H (94-97) % Sodium (137-145) mmol/L Potassium (3.5-5.1) mmol/L Chloride (98-107) mmol/L BUN (7-17) mg/dL Creatinine (0.52-1.04) mg/dL Glucose (74-99) mg/dL POC Glucose (mg/dL) 129 H (75-99) mg/dL Calcium (8.4-10.2) mg/dL Total Bilirubin (0.2-1.3) mg/dL AST (14-36) U/L Alkaline Phosphatase (38-126) U/L Albumin (3.5-5.0) g/dL Urine Appearance (Clear) Urine Protein (Negative) Urine WBC (0-5) /hpf Microbiology - Last 24 Hours (Table) 08/30/20 03:56 Blood Culture - Preliminary Blood No Growth after 96 hours 09/01/20 14:40 Blood Culture - Preliminary Blood No Growth after 24 hours 08/31/20 03:33 Blood Culture Gram Stain - Final Blood Blood Culture - Final Staphylococcus aureus Assessment and Plan Assessment: 1 Acute hypoxic and hypercapnic respiratory failure, secondary to an incisional wound infection with staph aureus/MSSA and addition to pneumonia and development of bilateral pleural effusion. The patient required surgical debridement. The patient has required intubation and mechanical ventilation on 08/25/2020. The patient remains intubated on mechanical ventilator. She is still septic with MSSA in the blood and wound cultures from 08/29/2020. The patient is currently on cefazolin 2 Sepsis from sternal wound infection post debridement, the patient is bacteremic with MSSA and the patient is currently on cefazolin. Plan is for muscle flap today 09/03/2019 3 Septic shock, primary source is sternal wound infection. This is secondary to MSSA. Patient is receiving cefazolin 4 MSSA sepsis with septic shock. 5 Leukocytosis secondary to above, with secondary fever and the white cell count is 15.4 6 Acute kidney injury required brief period of hemodialysis, presently off hemodialysis. Current creatinine 1.49. 7 Febrile illness secondary to above 8 Acute transaminitis secondary to hypoperfusion. The liver function tests are stable for now 9 Acute diastolic congestive heart failure with bilateral pleural effusions 10 History of hypertension 11 History of cervical stenosis 12 Previous tobacco dependence. 13 History of mild interstitial lung disease/pulmonary fibrosis 14 Status post sternal exploration with sternal debridement on 08/27/[address] Olivera. Wound VAC in place. Plan: The patient was seen and evaluated by Dr. Guadalupe Chest x-ray, ABGs and labs reviewed FiO2 decreased to 40%. Plan is for muscle flap surgery today Remains on a cefazolin, bronchodilators We will continue to follow and make further recommendations based on her clinical status Critical care time 35 minutes I, the cosigning physician, performed a history & physical examination of the patient. Lungs sounds with bilateral scattered rhonchi. Maintaining good O2 saturations in the 90s on 40% FiO2 via the mechanical ventilator. I discussed the assessment and plan of care with my nurse practitioner, Aparna Colunga. I attest to the above note as dictated by her.
--- NOTE | 2020-09-03 10:51 | P.PN ---
Subjective Progress Note Date: 09/03/20 Principal diagnosis: Shortness of breath, acute diastolic heart failure, bilateral pleural effusion, lactic acidosis, hypercapnic respiratory failure requiring BiPAP followed by va chanical ventilation, deep sternal wound infection with MSSA, acute kidney injury, acute hyperkalemia, hyponatremia, acute transaminitis, hypotension requiring vasopressors use, acute anemia. Previous medical history of coronary artery disease with left main stenosis status post 2 vessel CABG on 08/10/2020 with expected postoperative acute blood loss anemia, hypotension, and urinary retention as well as candidal stomatititus, hyponatremia, pulmonary fibrosis, asthma, hypertension, hyperlipidemia, previous tobacco dependence, obesity, osteoarthritis, cervical stenosis post anterior cervical disc decompression, discectomy and fusion, TIA as a child, family history of premature coronary artery disease. Paroxysmal Afib w/ RVR POD #7 sternal exploration with sternal debridement The patient was seen and examined at the bedside in the ICU. Remains off sedation for 48 hours, mechanically ventilated. She is opening her eyes and tracking, withdraws from painful stimuli x all 4 extremities. T-max 101.6 in the last 24 hours, WBC 15.4, blood cultures continue to be positive for MSSA (most recent 08/31/20)pending 09/01 blood cultures demonstrate no growth so far, sternal wound culture positive for MSSA. Sputum culture from 08/28 negative, positive for MSSA 08/26. Patient switched to IV ancef per infectious disease. Currently in NSR with HR in the high 90s to low 100s. Blood pressure stable on no pressors. BUN 66, creatinine 1.49, AST 43, ALT 33. Hemoglobin 8.3 this morning. Tube feeds currently on hold for OR today, patient tolerating well with minimal residual. IV lasix discontinued, currently on diamox. Wound vac remains in place, plan is for flap closure by Dr. Whittaker and Dr. Sethi. Neurology was consulted yesterday due to lack of movement despite being off sedation for possible critical illness myopathy, was sent for CT of head and cervical spine which demonstrated no acute fracture or dislocation in the cervical spine, no acute intracranial hemorrhage, mass effect, or midline shift. Family updated daily by phone. Objective - Vital Signs Vital signs: Vital Signs Temp 100.1 F H 09/03/20 08:00 Pulse 101 H 09/03/20 08:00 Resp 22 09/03/20 08:00 BP 117/52 09/03/20 08:00 Pulse Ox 95 09/03/20 08:00 Intake & Output 09/02/20 09/03/20 09/03/20 18:59 06:59 18:59 Intake Total 1473 1208 278 Output Total 1120 2885 200 Balance 353 1670 78 Weight 85.7 kg 83.6 kg Intake: IV 495 360 70 Nafcillin 2 gm In 100 100 Dextrose 5% in Water 100 ml @ 50 mls/hr IVPB Q4HR [facility] Rx#:[id number] Sodium Chloride 0.9% 1, 395 160 20 000 ml @ 20 mls/hr IV . Q24H [facility] Rx#:[id number] ceFAZolin 2 gm In Sodium 100 50 Chloride 0.9% 50 ml @ 100 mls/hr IVPB Q8HR [facility] Rx# :[id number] Tube Feeding 648 648 108 Other 330 200 100 Output: Drainage 100 Wound Vac 100 Urine 1020 1485 200 Stool 1400 Other: Voiding Method Indwelling Catheter Indwelling Catheter Indwelling Catheter ABP, PAP, CO, CI - Last Documented Arterial Blood Pressure 153/92 - Constitutional Constitutional Comment(s): Appears comfortable on the ventilator, eyes open General appearance: Present: no acute distress, obese - Respiratory Details: Lungs sounds diminished in the bases bilaterally. Respirations even, nonlabored on mechanical ventilation. Current vent settings FiO2 50%, tidal volume 400, respiratory rate 20, PEEP 5. 7.5 ET tube present, 22 at the lip. - Cardiovascular Details: S1, S2 present. Regular rate and rhythm, sinus rhythm with heart rate in the high 90s to low 100s. Palpable peripheral pulses bilaterally. Generalized edema present. Heart hugger, antiembolism stockings, SCDs present. - Gastrointestinal Gastrointestinal Comment(s): Abdomen soft, nontender, nondistended. Active bowel sounds present 4 quadrants. OG tube present, tube feedings on hold for OR today. Fecal management system in place, liquid green stool present - Genitourinary Genitourinary Comment(s): Yu present draining yellow urine, 95-175 mL/hr, 2505 mL in the last 24 hours. - Integumentary Integumentary Comment(s): Anterior chest incision open, wound vac in place. Left lower extremity EVH site well approximated without redness or drainage, bruising present - Neurologic Neurologic Comment(s): Opens eyes, tracks. Withdraws to painful stimuli x all four extremities - Musculoskeletal Musculoskeletal: Present: generalized weakness - Psychiatric Psychiatric Comment(s): alert, eyes open, tracks, doesn't follow commands - Allied health notes Allied health notes reviewed: nursing - Labs CBC & Chem 7: 09/03/20 03:32 09/03/20 03:32 Labs: Abnormal Lab Results - Last 24 Hours (Table) 09/02/20 09/02/20 09/02/20 Range/Units 11:15 11:38 17:59 WBC (3.8-10.6) k/uL RBC (3.80-5.40) m/uL Hgb (11.4-16.0) gm/dL Hct (34.0-46.0) % MCHC (31.0-37.0) g/dL RDW (11.5-15.5) % Neutrophils # (1.3-7.7) k/uL Eosinophils # (0-0.7) k/uL ABG pH (7.35-7.45) ABG pO2 (83-108) mmHg ABG HCO3 (21-25) mmol/L ABG Total CO2 (19-24) mmol/L ABG O2 Saturation (94-97) % Sodium (137-145) mmol/L Potassium (3.5-5.1) mmol/L Chloride (98-107) mmol/L BUN (7-17) mg/dL Creatinine (0.52-1.04) mg/dL Glucose (74-99) mg/dL POC Glucose (mg/dL) 131 H 137 H (75-99) mg/dL Calcium (8.4-10.2) mg/dL Total Bilirubin (0.2-1.3) mg/dL AST (14-36) U/L Alkaline Phosphatase (38-126) U/L Albumin (3.5-5.0) g/dL Urine Appearance Cloudy H (Clear) Urine Protein Trace H (Negative) Urine WBC 6 H (0-5) /hpf 09/02/20 09/03/20 09/03/20 Range/Units 18:52 00:56 03:32 WBC (3.8-10.6) k/uL RBC (3.80-5.40) m/uL Hgb (11.4-16.0) gm/dL Hct (34.0-46.0) % MCHC (31.0-37.0) g/dL RDW (11.5-15.5) % Neutrophils # (1.3-7.7) k/uL Eosinophils # (0-0.7) k/uL ABG pH (7.35-7.45) ABG pO2 (83-108) mmHg ABG HCO3 (21-25) mmol/L ABG Total CO2 (19-24) mmol/L ABG O2 Saturation (94-97) % Sodium 149 H (137-145) mmol/L Potassium 3.3 L 2.8 L (3.5-5.1) mmol/L Chloride 111 H (98-107) mmol/L BUN 66 H (7-17) mg/dL Creatinine 1.49 H (0.52-1.04) mg/dL Glucose 129 H (74-99) mg/dL POC Glucose (mg/dL) 112 H (75-99) mg/dL Calcium 7.3 L (8.4-10.2) mg/dL Total Bilirubin 2.4 H (0.2-1.3) mg/dL AST 43 H (14-36) U/L Alkaline Phosphatase 260 H (38-126) U/L Albumin 2.4 L (3.5-5.0) g/dL Urine Appearance (Clear) Urine Protein (Negative) Urine WBC (0-5) /hpf 09/03/20 09/03/20 09/03/20 Range/Units 03:32 05:01 06:32 WBC 15.4 H (3.8-10.6) k/uL RBC 2.85 L (3.80-5.40) m/uL Hgb 8.3 L (11.4-16.0) gm/dL Hct 27.1 L (34.0-46.0) % MCHC 30.7 L (31.0-37.0) g/dL RDW 16.2 H (11.5-15.5) % Neutrophils # 11.4 H (1.3-7.7) k/uL Eosinophils # 0.9 H (0-0.7) k/uL ABG pH 7.47 H (7.35-7.45) ABG pO2 122 H (83-108) mmHg ABG HCO3 28 H (21-25) mmol/L ABG Total CO2 30 H (19-24) mmol/L ABG O2 Saturation 99.7 H (94-97) % Sodium (137-145) mmol/L Potassium (3.5-5.1) mmol/L Chloride (98-107) mmol/L BUN (7-17) mg/dL Creatinine (0.52-1.04) mg/dL Glucose (74-99) mg/dL POC Glucose (mg/dL) 129 H (75-99) mg/dL Calcium (8.4-10.2) mg/dL Total Bilirubin (0.2-1.3) mg/dL AST (14-36) U/L Alkaline Phosphatase (38-126) U/L Albumin (3.5-5.0) g/dL Urine Appearance (Clear) Urine Protein (Negative) Urine WBC (0-5) /hpf Microbiology - Last 24 Hours (Table) 08/30/20 03:56 Blood Culture - Preliminary Blood No Growth after 96 hours 09/01/20 14:40 Blood Culture - Preliminary Blood No Growth after 24 hours 08/31/20 03:33 Blood Culture Gram Stain - Final Blood Blood Culture - Final Staphylococcus aureus - Imaging and Cardiology Chest x-ray: report reviewed, image reviewed Assessment and Plan Assessment: 1. Shortness of breath, acute diastolic heart failure, EF 55-60% on current TTE, bilateral pleural effusions 2. Lactic acidosis, septic shock, blood cultures positive for MSSA 3. Hypercapnic, hypoxic respiratory failure requiring BiPAP, with subsequent intubation and mechanical ventilation 4. Open sternal wound, surgically created, deep sternal wound infection with MSSA, S/P surgical exploration and debridement with daily dressing changes 5. Leukocytosis with bandemia, bandemia resolved, WBC trending down 6. Acute kidney injury, metabolic acidosis, metabolic acidosis resolved, kidney function returning to normal after receiving dialysis 7. Acute hyperkalemia, resolved 8. Acute transaminitis secondary to hypoperfusion, resolving 9. History of hypertension, hypotensive this admission requiring vasopressors, currently off vasopressors 10. Acute anemia, post transfusion PRBCs, on 11. Coronary artery disease with left main stenosis status post 2 vessel CABG on 08/10/2020 with expected postoperative acute blood loss anemia, hypotension, and urinary retention as well as candidal stomatititus 12. Hyponatremia, resolved 13. Pulmonary fibrosis, asthma 14. Hyperlipidemia, treated 15. Previous tobacco dependence 16. Obesity 17. Paroxysmal afib w/ RVR, atrial flutter, status post exclusion of the left atrial appendage using a 35 mm AtriClip, currently sinus rhythm Plan: 1. Ventilator management per pulmonary medicine. Weaning trials per pulmonary 2. Nephrology following, avoid nephrotoxins 3. Infectious disease following, final blood cultures/sternal wound cultures positive for MSSA, continue antibiotics 4. Continue aspirin, Plavix, beta sisi therapy. Statin remains on hold secondary to transaminitis, will restart when able 5. No anticoagulation as patient will need further surgery for muscle flap closure 6. Will monitor daily labs and x-rays, ABGs. 7. Plan is for sternal wound excision, partial sternotomy, myocutaneous flap reconstruction of sternal wound today with Dr. Whittaker 8. GI/DVT prophylaxis 9. Continue tube feeding for nutrition, currently on hold for surgery 10. Neurology consulted, appreciate recommendations 11. Will update family daily 12. More recommendations to follow Time with Patient: Greater than 30
[2020-09-03 11:34] LABS: Glucose,Whole Blood 113 mg/dL (75-99)
[2020-09-03] MEDS: ASCORBIC ACID 500 MG TAB PO SCH (11:35)
[2020-09-03] MEDS: FERROUS SULFATE ORAL ELIXIR 300 MG/5 ML CUP PO SCH (11:35)
[2020-09-03] MEDS ORDERED: PHENYLEPHRINE-0.9% NACL SYG 1,000 MCG/10 ML SYRINGE ONE (13:27)
[2020-09-03] MEDS ORDERED: ALBUMIN HUMAN 5% (12.5gm) 250 ML BOTTLE IVPB ONE (13:27)
[2020-09-03] MEDS ORDERED: ePHEDrine SULFATE/0.9% NACL/PF 50 MG/5 ML SYRINGE IV ONE (13:27)
[2020-09-03] MEDS ORDERED: POTASSIUM CHLORIDE 2 MEQ/ML 20 ML VIAL ONE (13:27)
[2020-09-03] MEDS ORDERED: MIDAZOLAM 2 MG/2 ML VIAL ONE (13:27)
[2020-09-03] MEDS ORDERED: fentaNYL (PF) 50 MCG/ML 2 ML AMP ONE (13:27)
[2020-09-03] MEDS ORDERED: KETAMINE 10 MG/ML 20 ML VIAL ONE (13:27)
[2020-09-03] MEDS ORDERED: HYDROmorphone (PF) 1 MG/ML ONE (13:27)
[2020-09-03] MEDS ORDERED: LACTATED RINGERS 1,000 ML IV ONE ×2 (13:37→14:57)
[2020-09-03] MEDS ORDERED: HYDROmorphone 0.5 MG/0.5 ML SYRINGE IVP PRN (14:21)
[2020-09-03] MEDS ORDERED: ONDANSETRON 4 MG/2 ML VIAL IVP ONE (14:21)
[2020-09-03] MEDS ORDERED: LACTATED RINGERS 1,000 ML IV SCH (14:21)
--- NOTE | 2020-09-03 14:53 | PN ---
PROGRESS NOTE Patient is seen for followup for acute kidney injury and volume overload. Patient has been off of dialysis and has had good urine output, although yesterday her serum creatinine had increased to 1.6 yet. The patient had been on nafcillin which was discontinued and switched to cefazolin. The patient was being aggressively diuresed and her Lasix was held for the last couple of days. She appears to have had increase in her edema in the lower extremities. Patient was also alkalotic and was started on Diamox. Yesterday, there was concern for the patient not being able to move her extremities. She does open her eyes and nod. PHYSICAL EXAMINATION: On examination today, patient is on the vent. Her is at bedside. Blood pressure is 109/51, heart rate 96 per minute, temperature 100.7. EXAMINATION OF THE HEART: S1, S2. EXAMINATION OF THE LUNGS: Bilateral breath sounds are heard. ABDOMEN: Soft, obese with abdominal wall edema. Examination of lower extremities shows edema 2 to 3+ bilaterally. RELIGIOUS EDUCATOR exam shows patient is not moving her extremities. LABS: Labs show sodium of 149, potassium 2.8, chloride 111, BUN 66, serum creatinine 1.49, hemoglobin 8.3 g/dL. ASSESSMENT: 1. Acute kidney injury on initial admission secondary to sepsis, hypotension, currently status post hemodialysis with improved renal function. Creatinine had gone down to around 1 and 0.9 mg/dL. It did increase to 1.6 yesterday. The nafcillin has been discontinued. Creatinine has improved to 1.49 today. She has had good urine output. 2. Volume overload. I will resume IV Lasix. 3. Hypokalemia associated with diuresis. It is being replaced. 4. Hypernatremia secondary to free water deficit. I will increase the free water down the feeding tube. 5. MSSA bacteremia from wound infection, going for muscle flap today. 6. 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 PLAN: Resume IV Lasix, replace potassium, increase free water down the feeding tube and repeat labs in a.m. MMODL / IJN: [id number] /
[2020-09-03] MEDS ORDERED: ALBUMIN HUMAN 5% 250 ML IVPB ONE (16:26)
[2020-09-03] MEDS ORDERED: NOREPINEPHRIN 4 MG-0.9% NS PMX 4 MG/250 ML ML IV ONE (16:32)
[2020-09-03] MEDS ORDERED: CALCIUM GLUCONATE 1 GM in SODIUM CHLORIDE 0.9% 100 ML IVPB ONE (16:45)
[2020-09-03] MEDS ORDERED: ALBUMIN HUMAN 5% 250 ML in EMPTY BAG 1 BAG IVPB ONE (16:45)
--- NOTE | 2020-09-03 17:09 | P.CNOR ---
History of Present Illness - [facility] Consult date: 09/03/20 Consult reason: other History of present illness: The patient is known to our service as she underwent surgical intervention on her cervical spine back in 2018. She seen and examined at bedside. She is intubated and into intensive care unit due to her congestive heart failure with pulmonary fibrosis cardiac artery disease and respiratory failure. Reportedly she has been having less use of her bilateral upper extremities over the past several days. We're asked to see the patient as she has had prior cervical surgery to help determine central causality. The patient is awake and seems to look in different directions but is not following commands. She is intubated. She is not following simple commands such as I blinking or wiggling of her toes or fingers or hands. Her at bedside and says that she has been using her hands very minimally but she was able to wiggle her fingers today varinder castaneda. She is not localizing any specific pain at her upper extremities or her neck. The states that prior to this hospitalization she had not been having any problems with her neck or her arms. She gets occasional aches and pains around her neck but is very happy with her surgery over the past few years. She is not had any new complaints of her arms or upper extremities Review of Systems Unable to determine other than as per the chart. Past Medical History Past Medical History: Asthma, Coronary Artery Disease (CAD), Hyperlipidemia, Hypertension, Osteoarthritis (OA) Additional Past Medical History / Comment(s): skin cancer with removals, arthritis multiple joints, back and cervical pain, ?TIA in her teens-shows up on scan?, pulmonary fibrosis, hyponatremia History of Any Multi-Drug Resistant Organisms: None Reported Past Surgical History: Cholecystectomy, Coronary Bypass/CABG, Heart Catheterization, Tonsillectomy, Tubal Ligation Additional Past Surgical History / Comment(s): 2 CABG, 2 cardiac caths wit hout intervention, bilateral cataract removal with lens implants, skin cancer removals, cyst removed from neck, colonoscopy, cervical fusion Past Anesthesia/Blood Transfusion Reactions: No Reported Reaction Additional Past Anesthesia/Blood Transfusion Reaction / Comm: Pt has never received blood. Past Psychological History: No Psychological Hx Reported Smoking Status: Former smoker Past Alcohol Use History: None Reported Past Drug Use History: None Reported - Past Family History Brother(s) Family Medical History: Coronary Artery Disease (CAD) Additional Family Medical History / Comment(s): "bad heart" aneurysm Sister(s) Family Medical History: Cancer Additional Family Medical History / Comment(s): breast cancer Mother Family Medical History: Cancer, Coronary Artery Disease (CAD) Additional Family Medical History / Comment(s): Lymphoma, had a pacemaker. Mother at the age of 92yrs. Father Family Medical History: Coronary Artery Disease (CAD), Myocardial Infarction ([place]) Additional Family Medical History / Comment(s): Father of a [place] at the age of 63 yrs, diagnosed with CAD in his early 50s. Medications and Allergies Home Medications Medication Instructions Recorded Confirmed Type Ipratropium-Albuterol Nebulize 3 ml INHALATION RT-QID PRN 05/18/15 08/22/20 History [Duoneb 0.5 mg-3 mg/3 ml Soln] Ibuprofen [Motrin] 800 mg PO TID PRN 12/05/17 08/22/20 History Albuterol Sulfate [Albuterol 2 puff PO RT-Q6H PRN 08/06/20 08/22/20 History Sulfate Hfa] Acetaminophen Tab [Tylenol] 650 mg PO Q4HR PRN tab 08/19/20 08/22/20 Rx Ascorbic Acid [Vitamin C] 500 mg PO DAILY@1200 #7 tab 08/19/20 08/22/20 Rx Aspirin 325 mg PO DAILY #30 tab 08/19/20 08/22/20 Rx Atorvastatin [Lipitor] 40 mg PO DAILY #30 tab 08/19/20 08/22/20 Rx Clopidogrel [Plavix] 75 mg PO DAILY #30 tab 08/19/20 08/22/20 Rx Ferrous Sulfate [Iron (65 MG 325 mg PO W/LUNCH #7 tab 08/19/20 08/22/20 Rx Elemental)] Furosemide [Lasix] 40 mg PO DAILY #7 tablet 08/19/20 08/22/20 Rx Losartan [Cozaar] 25 mg PO DAILY@1200 #30 tab 08/19/20 08/22/20 Rx Metoprolol Tartrate [Lopressor] 75 mg PO BID #180 tab 08/19/20 08/22/20 Rx Pantoprazole [Protonix] 40 mg PO HOMER-JENNIFERKFSArian #30 tablet. 08/19/20 08/22/20 Rx Potassium Chloride ER [K-Dur 10] 10 meq PO DAILY #7 tab 08/19/20 08/22/20 Rx Sennosides-Docusate Sodium 2 each PO HS PRN #14 tab 08/19/20 08/22/20 Rx [Senokot-S] guaiFENesin-DM 600/30MG [Mucinex 2 each PO Q12HR #14 tab.er.12h 08/19/20 08/22/20 Rx Dm] Allergies Allergy/AdvReac Type Severity Reaction Status Date / Time adhesive Allergy blisters Verified 08/22/20 22:40 latex Allergy Rash/Hives Verified 08/22/20 22:40 Physical Examination Osteopathic Statement: *. No significant issues noted on an osteopathic structural exam other than those noted in the History and Physical/Consult. - C Spine: dermatomal strength & reflexes bilateral Shoulder strength: flexion: 0/5 (Her neck incision is clean and dry. She is not localized pain toward her neck. She is not localizing pain at her upper extremity is. She has a subtle positive Maxine sign on the right. She is not following commands to try to use her hands or feet currently.) Shoulder strength: extension: 0/5 (Reports from her states that he has she has been using her hands and feet and wiggling her fingers and feet today. Before she was hospitalized she had been moving well and using her arms well.) Results - Labs Labs: Abnormal Lab Results - Last 24 Hours (Table) 09/02/20 09/02/20 09/03/20 Range/Units 17:59 18:52 00:56 WBC (3.8-10.6) k/uL RBC (3.80-5.40) m/uL Hgb (11.4-16.0) gm/dL Hct (34.0-46.0) % MCHC (31.0-37.0) g/dL RDW (11.5-15.5) % Neutrophils # (1.3-7.7) k/uL Eosinophils # (0-0.7) k/uL ABG pH (7.35-7.45) ABG pO2 (83-108) mmHg ABG HCO3 (21-25) mmol/L ABG Total CO2 (19-24) mmol/L ABG O2 Saturation (94-97) % Sodium (137-145) mmol/L Potassium 3.3 L (3.5-5.1) mmol/L Chloride (98-107) mmol/L BUN (7-17) mg/dL Creatinine (0.52-1.04) mg/dL Glucose (74-99) mg/dL POC Glucose (mg/dL) 137 H 112 H (75-99) mg/dL Calcium (8.4-10.2) mg/dL Total Bilirubin (0.2-1.3) mg/dL AST (14-36) U/L Alkaline Phosphatase (38-126) U/L Albumin (3.5-5.0) g/dL 09/03/20 09/03/20 09/03/20 Range/Units 03:32 03:32 05:01 WBC 15.4 H (3.8-10.6) k/uL RBC 2.85 L (3.80-5.40) m/uL Hgb 8.3 L (11.4-16.0) gm/dL Hct 27.1 L (34.0-46.0) % MCHC 30.7 L (31.0-37.0) g/dL RDW 16.2 H (11.5-15.5) % Neutrophils # 11.4 H (1.3-7.7) k/uL Eosinophils # 0.9 H (0-0.7) k/uL ABG pH 7.47 H (7.35-7.45) ABG pO2 122 H (83-108) mmHg ABG HCO3 28 H (21-25) mmol/L ABG Total CO2 30 H (19-24) mmol/L ABG O2 Saturation 99.7 H (94-97) % Sodium 149 H (137-145) mmol/L Potassium 2.8 L (3.5-5.1) mmol/L Chloride 111 H (98-107) mmol/L BUN 66 H (7-17) mg/dL Creatinine 1.49 H (0.52-1.04) mg/dL Glucose 129 H (74-99) mg/dL POC Glucose (mg/dL) (75-99) mg/dL Calcium 7.3 L (8.4-10.2) mg/dL Total Bilirubin 2.4 H (0.2-1.3) mg/dL AST 43 H (14-36) U/L Alkaline Phosphatase 260 H (38-126) U/L Albumin 2.4 L (3.5-5.0) g/dL 09/03/20 09/03/20 09/03/20 Range/Units 06:32 11:32 12:09 WBC (3.8-10.6) k/uL RBC (3.80-5.40) m/uL Hgb (11.4-16.0) gm/dL Hct (34.0-46.0) % MCHC (31.0-37.0) g/dL RDW (11.5-15.5) % Neutrophils # (1.3-7.7) k/uL Eosinophils # (0-0.7) k/uL ABG pH (7.35-7.45) ABG pO2 (83-108) mmHg ABG HCO3 (21-25) mmol/L ABG Total CO2 (19-24) mmol/L ABG O2 Saturation (94-97) % Sodium (137-145) mmol/L Potassium 3.4 L (3.5-5.1) mmol/L Chloride (98-107) mmol/L BUN (7-17) mg/dL Creatinine (0.52-1.04) mg/dL Glucose (74-99) mg/dL POC Glucose (mg/dL) 129 H 113 H (75-99) mg/dL Calcium (8.4-10.2) mg/dL Total Bilirubin (0.2-1.3) mg/dL AST (14-36) U/L Alkaline Phosphatase (38-126) U/L Albumin (3.5-5.0) g/dL Microbiology - Last 24 Hours (Table) 09/01/20 14:40 Blood Culture - Preliminary Blood No Growth after 48 hours 08/30/20 03:56 Blood Culture - Preliminary Blood No Growth after 96 hours 08/31/20 03:33 Blood Culture Gram Stain - Final Blood Blood Culture - Final Staphylococcus aureus H & H 08/22/20 08/23/20 08/24/20 Range/Units 21:44 05:36 04:16 Hgb 7.0 L 7.5 L 7.1 L (11.4-16.0) gm/dL Hct 21.2 L 24.1 L 24.0 L (34.0-46.0) % 08/25/20 08/25/20 08/26/20 Range/Units 04:00 16:40 03:50 Hgb 6.5 L* 5.2 L* 10.8 L D (11.4-16.0) gm/dL Hct 20.9 L 16.7 L* 32.6 L (34.0-46.0) % 08/27/20 08/27/20 08/28/20 Range/Units 03:32 12:08 03:50 Hgb 11.3 L 11.1 L 10.7 L (11.4-16.0) gm/dL Hct 34.3 32.4 L 31.6 L (34.0-46.0) % 08/29/20 08/30/20 08/31/20 Range/Units 05:20 03:56 03:33 Hgb 10.6 L 10.2 L 10.0 L (11.4-16.0) gm/dL Hct 31.6 L 31.7 L 30.6 L (34.0-46.0) % 09/01/20 09/02/20 09/03/20 Range/Units 03:50 03:50 03:32 Hgb 9.5 L 8.4 L 8.3 L (11.4-16.0) gm/dL Hct 28.7 L 26.1 L 27.1 L (34.0-46.0) % Coagulation 08/22/20 08/25/20 Range/Units 21:44 17:17 INR 1.0 1.9 H (<1.2) Result Diagrams: 09/03/20 03:32 09/03/20 12:09 - Diagnostic results Cervical AP/lateral x-ray: report reviewed, image reviewed (Computed tomography scan of the cervical spine shows prior fusion from C3 to see 7. The fusion appears solid and stable. There is no loosening of the hardware or fragmentation. There is no acute new disc herniation that is visible. There is no instability noted.) Assessment and Plan Assessment: Respiratory failure, on ventilator A linear fibrosis Coronary artery disease Congestive heart failure History of cervical fusion from C3 to C7 with current global weakness Plan: Respiratory failure, on ventilator A linear fibrosis Coronary artery disease Congestive heart failure History of cervical fusion from C3 to C7 with current global weakness The patient has obvious severe medical issues. She is still ventilated requiring significant support for her coronary artery disease congestive heart failure, or fibrosis risk for failure. She is having global weakness and it is difficult to determine the specific cause. Prior to this hospitalization she was having minimal issues with her neck and her upper extremities. She had a history of anterior cervical decompression and fusion in 2018 but that appears to be quite stable. I do not think that she has new cervical spine issue as a specific cause of her global weakness at the present time. I would not plan surgical intervention for her spine at this point. I discussed this with the and he understands area and I discussed this with the house staff. We will follow peripherally as needed.
--- NOTE | 2020-09-03 17:26 | XR ---
EXAMINATION TYPE: XR chest 1V portable DATE OF EXAM: 09/03/2020 COMPARISON: Earlier same day. HISTORY: Muscle flap repair. TECHNIQUE: Single frontal view of the chest is obtained. FINDINGS: There are interval postsurgical changes with multiple midline skin franc and bilateral tu bes/drains overlying the mid chest. The endotracheal and nasogastric tubes remain in place. There is increased bilateral diffuse patchy airspace opacities, greater on the left. No significant pleural ef fusion or pneumothorax. The cardiac silhouette size is borderline enlarged. IMPRESSION: Status post surgical changes. Increased bilateral diffuse opacities, may represent edema and/or atelectasis. Superimposed infiltrat e cannot be excluded.
[2020-09-03 18:41] LABS: Glucose,Whole Blood 104 mg/dL (75-99)
[2020-09-03] MEDS: D5-0.45% NACL WITH KCL 20MEQ/L 1,000 ML IV SCH (18:56)
[2020-09-03] MEDS: fentaNYL (PF) 50 MCG/ML 2 ML AMP IVP PRN ×2 (19:52→19:55)
[2020-09-03 20:10] LABS: Appearance,Urine Clear (Clear); Bilirubin,Urine Negative (Negative); Blood,Urine Small (Negative); Color,Urine Yellow; Glucose,Urine (UA) Negative (Negative); Ketones,Urine Negative (Negative); Leukocyte Esterase,Urine Negative (Negative); Mucus,Urine Rare /hpf; Nitrite,Urine Negative (Negative); Protein,Urine 1+ (Negative); RBC,Urine 4 /hpf (0-5); Specific Gravity,Urine 1.015 (1.001-1.035); Squamous Epithelial Cell,Urine <1 /hpf (0-4); Urobilinogen,Urine <2.0 mg/dL (<2.0); WBC,Urine 5 /hpf (0-5)
--- NOTE | 2020-09-03 22:17 | OP ---
OPERATIVE REPORT DATE OF SURGERY: 09/03/2020 PREOPERATIVE DIAGNOSIS: Sternal wound infection with methicillin-sensitive Staphylococcus aureus, status post coronary artery bypass grafting x2 on 08/10/2020, status post prior sternal wound debridement and application of a V.A.C. dressing. POSTOPERATIVE DIAGNOSIS: Sternal wound infection with methicillin-sensitive Staphylococcus aureus, status post coronary artery bypass grafting x2 on 08/10/2020, status post prior sternal wound debridement and application of a V.A.C. dressing. SURGEON: Dr. Flores Sethi. CO-SURGEON: Dr. Chung Whittaker. PROCEDURES: Removal of cable and partial resection of the manubrium as well as partial sternectomy with subsequent advancement pectoralis flap coverage by Plastic Surgery, Dr. Whittaker. DESCRIPTION OF PROCEDURE: The patient was brought from the ICU already intubated. General anesthesia was administered. The patient received 2 grams of cefazolin intravenously. The chest and abdomen both were prepped using ChloraPrep. This was done after removing the V.A.C. dressing. The heart was well covered by granulating mediastinal fat. The manubrium was still held with one cable. That was removed. Subsequently, using an oscillating saw, thickness of around 0.75 cm was resected from each hemimanubrium. Bone seal was applied to the bone. Subsequently, using a bone rongeur, I went ahead and removed most of the costal cartilages and devitalized tissue. The remaining tissues looked healthy and relatively well perfused. At this point, the plastic surgery part followed, and that will be dictated by Dr. Whittaker. MMODL / IJN: [id number] / [facility]ENTER[facility]ee
--- NOTE | 2020-09-03 22:33 | PN ---
PROGRESS NOTE DATE OF SERVICE: 09/03/2020 REASON FOR FOLLOWUP: MSSA bacteremia secondary to sternal wound infection. INTERVAL HISTORY: The patient is currently afebrile. The patient did spike a fever this morning of 101.7 degrees Fahrenheit. The patient is hemodynamically stable, not on any pressor support. FiO2 is currently stable at 60%. No significant purulent secretion through the ET or any diarrhea reported by the nursing staff. PHYSICAL EXAMINATION: Blood pressure 109/49, pulse of 112, temperature 98.6. She is 100% on 60% FiO2. General description is an elderly female lying in bed in no distress. RESPIRATORY SYSTEM: Unlabored breathing with decreased breath sounds at the base. No wheeze. HEART: S1, S2. Regular rate and rhythm. ABDOMEN: Soft. No tenderness. LABS: Hemoglobin 8.3, white count 15.4, creatinine 1.49. DIAGNOSTIC IMPRESSION AND PLAN: Patient with methicillin-susceptible Staphylococcus aeruginosa bacteremia. Source is likely sternal wound infection that has been debrided, and now this patient with a new fever. Blood culture will be repeated. UA has been requested. Chest x-ray this morning. She will continue with cefazolin at this point while monitoring her clinical course closely. Continue with supportive care. MMODL / IJN: [id number] /
--- NOTE | 2020-09-04 00:04 | P.PN ---
Subjective Progress Note Date: 09/03/20 Patient is awake, eyes are open, but appears encephalopathic. Patient is still intubated. Does not follow commands. Even yesterday, patient was responding much more to her 's command, rather than on my request. Patient had undergone procedure for Objective - Vital Signs Vital signs: Vital Signs Temp 98.6 F 09/03/20 17:00 Pulse 105 H 09/03/20 17:00 Resp 21 09/03/20 17:00 BP 130/60 09/03/20 17:00 Pulse Ox 99 09/03/20 17:00 Intake & Output 09/02/20 09/03/20 09/03/20 18:59 06:59 18:59 Intake Total 1473 1208 1524 Output Total 1120 2885 970 Balance 353 -0703 554 Weight 85.7 kg 83.6 kg Intake: IV 321 767 6988 Nafcillin 2 gm In 100 100 Dextrose 5% in Water 100 ml @ 50 mls/hr IVPB Q4HR [facility] Rx#:[id number] Sodium Chloride 0.9% 1, 395 160 120 000 ml @ 20 mls/hr IV . Q24H [facility] Rx#:[id number] ceFAZolin 2 gm In Sodium 100 150 Chloride 0.9% 50 ml @ 100 mls/hr IVPB Q8HR [facility] Rx# :[id number] Tube Feeding 648 648 54 Other 330 200 Output: Drainage 100 Wound Vac 100 Urine 1020 1485 920 Stool 1400 Estimated Blood Loss 50 Other: Voiding Method Indwelling Catheter Indwelling Catheter Indwelling Catheter ABP, PAP, CO, CI - Last Documented Arterial Blood Pressure 153/92 - Exam On examination patient is awake, opens her eyes, but does not track today. Did not make eye contact. Did not smile. Still intubated. Patient is completely quadriplegic. Reflexes are 3 in the right upper limb, 1+ in the left upper limb. 2+ at the knees, and bilateral Babinski. Patient has peripheral edema. - Labs CBC & Chem 7: 09/03/20 03:32 09/03/20 12:09 Labs: Abnormal Lab Results - Last 24 Hours (Table) 09/02/20 09/03/20 09/03/20 Range/Units 18:52 00:56 03:32 WBC (3.8-10.6) k/uL RBC (3.80-5.40) m/uL Hgb (11.4-16.0) gm/dL Hct (34.0-46.0) % MCHC (31.0-37.0) g/dL RDW (11.5-15.5) % Neutrophils # (1.3-7.7) k/uL Eosinophils # (0-0.7) k/uL ABG pH (7.35-7.45) ABG pO2 (83-108) mmHg ABG HCO3 (21-25) mmol/L ABG Total CO2 (19-24) mmol/L ABG O2 Saturation (94-97) % Sodium 149 H (137-145) mmol/L Potassium 3.3 L 2.8 L (3.5-5.1) mmol/L Chloride 111 H (98-107) mmol/L BUN 66 H (7-17) mg/dL Creatinine 1.49 H (0.52-1.04) mg/dL Glucose 129 H (74-99) mg/dL POC Glucose (mg/dL) 112 H (75-99) mg/dL Calcium 7.3 L (8.4-10.2) mg/dL Total Bilirubin 2.4 H (0.2-1.3) mg/dL AST 43 H (14-36) U/L Alkaline Phosphatase 260 H (38-126) U/L Albumin 2.4 L (3.5-5.0) g/dL 09/03/20 09/03/20 09/03/20 Range/Units 03:32 05:01 06:32 WBC 15.4 H (3.8-10.6) k/uL RBC 2.85 L (3.80-5.40) m/uL Hgb 8.3 L (11.4-16.0) gm/dL Hct 27.1 L (34.0-46.0) % MCHC 30.7 L (31.0-37.0) g/dL RDW 16.2 H (11.5-15.5) % Neutrophils # 11.4 H (1.3-7.7) k/uL Eosinophils # 0.9 H (0-0.7) k/uL ABG pH 7.47 H (7.35-7.45) ABG pO2 122 H (83-108) mmHg ABG HCO3 28 H (21-25) mmol/L ABG Total CO2 30 H (19-24) mmol/L ABG O2 Saturation 99.7 H (94-97) % Sodium (137-145) mmol/L Potassium (3.5-5.1) mmol/L Chloride (98-107) mmol/L BUN (7-17) mg/dL Creatinine (0.52-1.04) mg/dL Glucose (74-99) mg/dL POC Glucose (mg/dL) 129 H (75-99) mg/dL Calcium (8.4-10.2) mg/dL Total Bilirubin (0.2-1.3) mg/dL AST (14-36) U/L Alkaline Phosphatase (38-126) U/L Albumin (3.5-5.0) g/dL 09/03/20 09/03/20 Range/Units 11:32 12:09 WBC (3.8-10.6) k/uL RBC (3.80-5.40) m/uL Hgb (11.4-16.0) gm/dL Hct (34.0-46.0) % MCHC (31.0-37.0) g/dL RDW (11.5-15.5) % Neutrophils # (1.3-7.7) k/uL Eosinophils # (0-0.7) k/uL ABG pH (7.35-7.45) ABG pO2 (83-108) mmHg ABG HCO3 (21-25) mmol/L ABG Total CO2 (19-24) mmol/L ABG O2 Saturation (94-97) % Sodium (137-145) mmol/L Potassium 3.4 L (3.5-5.1) mmol/L Chloride (98-107) mmol/L BUN (7-17) mg/dL Creatinine (0.52-1.04) mg/dL Glucose (74-99) mg/dL POC Glucose (mg/dL) 113 H (75-99) mg/dL Calcium (8.4-10.2) mg/dL Total Bilirubin (0.2-1.3) mg/dL AST (14-36) U/L Alkaline Phosphatase (38-126) U/L Albumin (3.5-5.0) g/dL Microbiology - Last 24 Hours (Table) 09/01/20 14:40 Blood Culture - Preliminary Blood No Growth after 48 hours 08/30/20 03:56 Blood Culture - Preliminary Blood No Growth after 96 hours 08/31/20 03:33 Blood Culture Gram Stain - Final Blood Blood Culture - Final Staphylococcus aureus Assessment and Plan Assessment: * New onset quadriplegia, unclear etiology. Patient is persistently septic. Sternal abscess likely the source. Rule out epidural abscess, discitis osteomyelitis producing quadriplegia. Doubt critical illness neuropathy, as patient should still be able to move some muscles proximally, and that patient's reflexes are preserved, in fact brisk with bilateral Babinski. Critical illness myopathy also a possibility. CPK is normal. * Status post CABG, followed by wound infection, requiring sternal debridement with persistent sepsis. Status post placement of muscle flap. * Septic shock with MSSA * Acute kidney injury * Acute transaminitis * CHF * Hypertension * History of cervical fusion, spinal stenosis in the past. Plan: * Patient continues to be quadriplegic. Reflexes are somewhat brisk. * Appreciate Orthopedic spine input. Hardware in the cervical spine is stable. No loosening. * CPK 74, TSH 1.87, aldolase pending. * MRI of cervical spine, when possible. * Critical care, ID also following.
[2020-09-04 00:45] LABS: Glucose,Whole Blood 133 mg/dL (75-99)
[2020-09-04] MEDS: INSULIN ASPART (NovoLOG) 100 UNIT/ML VIAL SQ SCH ×5 (00:49→23:54)
[2020-09-04] MEDS: HEPARIN SODIUM,PORCINE 5,000 UNIT/ML 1 ML VIAL SQ SCH ×4 (00:50→23:44)
[2020-09-04 04:03] LABS: Anisocytosis Slight; Basophils # (A) 0.1 k/uL (0-0.2); Basophils % (A) 1 %; Eosinophils % (A) 6 %; HCT 23.4 % (34.0-46.0); HGB 7.2 gm/dL (11.4-16.0); Hypochromasia Marked; Lymphocytes # (A) 2.7 k/uL (1.0-4.8); Lymphocytes % (A) 15 %; MCH 29.5 pg (25.0-35.0); MCHC 30.7 g/dL (31.0-37.0); MCV 96.1 fL (80.0-100.0); Mean Platelet Volume 9.8; Monocytes # (A) 0.4 k/uL (0-1.0); Monocytes % (A) 3 %; Neutrophils # (A) 13.1 k/uL (1.3-7.7); Neutrophils % (A) 75 %; Platelet Count 328 k/uL (150-450); Poikilocytosis Slight; RBC 2.44 m/uL (3.80-5.40); RDW 16.4 % (11.5-15.5); WBC 17.5 k/uL (3.8-10.6)
[2020-09-04] MEDS: NOREPINEPHRINE 4 MG in SODIUM CHLORIDE 0.9% 250 ML IV SCH ×2 (04:09→14:15)
[2020-09-04 04:16] LABS: Albumin 2.9 g/dL (3.5-5.0); Calcium 8.1 mg/dL (8.4-10.2); Magnesium 2.6 mg/dL (1.6-2.3); Potassium 3.8 mmol/L (3.5-5.1); Total Protein 6.9 g/dL (6.3-8.2)
[2020-09-04] MEDS: ACETAMINOPHEN TAB 325 MG TAB PO PRN ×2 (04:35→23:45)
[2020-09-04] MEDS ORDERED: POTASSIUM BICARBONATE/CIT AC 20 MEQ TABLET.EFF NG-TUBE SCH ×2 (05:00→23:00)
[2020-09-04 05:49] LABS: Glucose,Whole Blood 144 mg/dL (75-99)
--- NOTE | 2020-09-04 06:53 | OP ---
OPERATIVE REPORT DATE OF SERVICE: 09/03/2020 SURGEON: Chung Whittaker M.D. PREOPERATIVE DIAGNOSES: 1. Open sternal wound, disruption. 2. Sternal wound infection. POSTOPERATIVE DIAGNOSES: 1. Open sternal wound, disruption. 2. Sternal wound infection. OPERATIVE PROCEDURE: 1. Excision of sternal wound in preparation for flap closure, 120 square cm. 2. Right pectoralis major myocutaneous flap. 3. Left pectoralis major myocutaneous flap. OPERATIVE INDICATIONS: Patient is a 75-year-old female who is status post cardiac bypass surgery that was complicated by readmission to the hospital with infected sternal wound. She required surgical drainage and had returned to the operating room for additional debridement procedures. I was asked to evaluate the patient for her reconstructive closure. She was seen and evaluated earlier this week and I have coordinated the surgery with her cardiovascular surgeon, Dr. Flores Sethi. As the patient is currently ventilated, I reviewed the surgical plan with her by telephone as well as in person, who has given consent for the procedure. The patient's is aware of the potential risks and complications of the surgery including, but not limited to, hematoma, seroma, wound healing problems, postoperative infection, as well as wound disruption, among others. Consent for the surgery has been obtained. OPERATIVE PROCEDURE SUMMARY: The patient is transported to the operating room directly from the ICU. General endotracheal anesthesia was established at that point. She was prepped and draped in usual fashion. Dr. Sethi then proceeded with partial sternectomy and debridement of exposed mediastinal tissues until only healthy tissue remained. The open wound measured 15 cm in length by 8 cm in width. Next, I proceeded with elevation of right and left pectoralis major myocutaneous flaps. Flaps were required from both sides due to the large size of this patient's wound defect. Dr. Sethi assisted me during this process. The pectoralis major muscles were identified and elevated off the remaining rib attachments in the medial aspect with cauterization. All inferior attachment of the pectoralis major muscles to ribs structures were released with cautery. This dissection was sufficient to allow mobilization of the myocutaneous flap for closure over the midline with minimal tension. The wound edges were excised, first marking the area with a skin marker and then excising tissue with a 10 blade scalpel. All tissue excised from today's procedures were sent as one specimen labeled sternal wound and bone. All tissue that remained appeared healthy now. Hemostasis was maintained cauterization. Irrigation was performed with pulse lavage using several liters of fluid. Drains were now placed. Using 19 round Maverick channel drains, 1 drain was placed under each pectoralis major myocutaneous flap elevation site and 1 drain placed centrally in the sternotomy area. Drains were cut to appropriate length and brought out through separate stab incisions in either the epigastric area or right and left anterior lateral chest wall. All drains were sutured in place with 2-0 Prolene. The right- sided and left-sided pectoralis major myocutaneous flaps were now advanced to the midline where they were inset from cephalad to caudad using interrupted inverted #1 Vicryl sutures. Complete muscle coverage of the mediastinum was obtained by this manner. The remaining open wound was closed by approximating the Franky's layer where present using inverted interrupted 2-0 Vicryl and then approximating the deep dermis using inverted interrupted 4-0 Monocryl followed by completing the skin closure with interrupted franc. Surgical field was cleansed with saline and dried. A Prevena postoperative negative pressure wound bandage was applied over the staple repair and connected to the battery suction device and it functioned as expected. Drain sponges were placed around each drain. Drains were patent and connected to suction bulbs. The patient was then transferred back to the recovery room in good condition with stable vital signs. ESTIMATED BLOOD LOSS: 100 cc. MMODL / IJN: [id number] /
--- NOTE | 2020-09-04 08:19 | PN ---
PROGRESS NOTE Mrs. Alvarenga is a 75-year-old female, status post coronary artery bypass grafting who was readmitted with evidence of dehiscences of her sternal wound. She underwent sternal wound debridement yesterday with partial sternectomy and subsequent pectoralis flap coverage by Dr. Whittaker. She remains intubated. She is in sinus mechanism with episode of sinus tachycardia. She has a low-grade fever. Her urine output is stable. There is no evidence of malignant arrhythmia. She continues on the Lipitor 40 mg daily, aspirin once a day, Plavix 75 mg daily, furosemide 40 mg IV daily, metoprolol tartrate 50 mg twice a day. PHYSICAL EXAMINATION: Blood pressure running in the 100s with the heart rate in the one teens. She had a temperature of 102.2. LUNGS: With mild decrease in breath sounds. No wheezes. HEART: Tachycardic, S1, S2. No S3. No rub appreciated. ABDOMEN: Soft, nontender. Positive bowel sounds. EXTREMITIES: No edema. LAB DATA: Lab data revealed hemoglobin of 7.2. Her white blood cell is 17.5, which is worse than yesterday. Her BUN creatinine 59 and 1.37. Her chest x-ray is pending. IMPRESSION: 1. Status post pectoralis flap placement for dehiscence of the sternal wound. 2. Status post coronary artery bypass grafting. 3. Respiratory failure. 4. Renal failure. 5. History of hypertension. 6. History of hyperlipidemia. 7. Prior history of pulmonary fibrosis. RECOMMENDATION: From the cardiac standpoint, will continue supportive care. The sinus tachycardia is most likely related to the fever. We will follow her labs closely as well as her temperature. Patient has been seen by Dr. Mcintyre regarding her infectious process. Depending on her progress, further recommendation will be made. MMODL / IJN: [id number] /
[2020-09-04] MEDS ORDERED: CISATRACURIUM 2 MG/ML 5 ML VIAL IV ONE (08:36)
[2020-09-04] MEDS ORDERED: FUROSEMIDE 10 MG/ML 4 ML VIAL IV SCH (09:00)
--- NOTE | 2020-09-04 09:04 | P.PN ---
Subjective Progress Note Date: 09/04/20 Principal diagnosis: Shortness of breath, acute diastolic heart failure, bilateral pleural effusion, lactic acidosis, hypercapnic respiratory failure requiring BiPAP followed by co chanical ventilation, deep sternal wound infection with MSSA, acute kidney injury, acute hyperkalemia, hyponatremia, acute transaminitis, hypotension requiring vasopressors use, acute anemia. Previous medical history of coronary artery disease with left main stenosis status post 2 vessel CABG on 08/10/2020 with expected postoperative acute blood loss anemia, hypotension, and urinary retention as well as candidal stomatititus, hyponatremia, pulmonary fibrosis, asthma, hypertension, hyperlipidemia, previous tobacco dependence, obesity, osteoarthritis, cervical stenosis post anterior cervical disc decompression, discectomy and fusion, TIA as a child, family history of premature coronary artery disease. Paroxysmal Afib w/ RVR POD #8 sternal exploration with sternal debridement, subsequent wound VAC placement POD #1 removal of cable and partial resection of the manubrium as well as partia l sternotomy by Dr. Sethi; right pectoralis major myocutaneous flap, left pectoralis major myocutaneous flap by Dr. Thomas The patient was seen and examined at the bedside in the ICU. Remains off sedation, mechanically ventilated. She is opening her eyes and tracking, withdraws from painful stimuli x all 4 extremities. T-max 102.2 in the last 24 hours, WBC 17.5, blood cultures positive for MSSA 08/31/20, blood cultures from 09/01 and 09/02 still pending but preliminary Gram stain negative, sternal wound culture positive for MSSA. Sputum culture from 08/28 negative, positive for MSSA 08/26. Patient continues on IV ancef per infectious disease. Currently in NSR with HR in the low 100s. Blood pressure stable, restarted on low-dose Levophed yesterday after surgery. BUN 59, creatinine 1.37, AST 39, ALT 19. Hemoglobin 7.2 this morning. Tube feeds to be restarted today, patient tolerating well with minimal residual. Diamox discontinued, IV Lasix restarted by nephrology. Continues to have her eyes open, does shake her head minimally when asked if she is in pain, withdraws to painful stimuli. Family updated daily by phone. Objective - Vital Signs Vital signs: Vital Signs Temp 100.2 F H 09/04/20 05:00 Pulse 114 H 09/04/20 07:00 Resp 30 H 09/04/20 07:00 BP 97/53 09/04/20 07:00 Pulse Ox 98 09/04/20 07:00 Intake & Output 09/03/20 09/04/20 09/04/20 18:59 06:59 18:59 Intake Total 1524 1230.914 75 Output Total 1205 1653 400 Balance 319 -422.086 -325 Weight 87.7 kg Intake: IV 1470 1198 75 Calcium Gluconate 1 gm In 100 Sodium Chloride 0.9% 100 ml @ 100 mls/hr IVPB ONCE ONE Rx#:[id number] D5-0.45% NaCl with KCl 900 75 20Meq/l 1,000 ml @ 75 mls /hr IV .[id number] [facility] Rx#: [id number] Norepinephrin 4 mg-0.9% 198 Ns Pmx 4 mg In 250 ml @ 0 mls/hr IV .[facility] ONE Rx#:[id number] Sodium Chloride 0.9% 1, 120 000 ml @ 20 mls/hr IV . Q24H [facility] Rx#:[id number] ceFAZolin 2 gm In Sodium 150 Chloride 0.9% 50 ml @ 100 mls/hr IVPB Q8HR [facility] Rx# :[id number] Intake, IV Titration 32.914 Amount Norepinephrine 4 mg In 32.914 Sodium Chloride 0.9% 250 ml @ 0.05 MCG/KG/MIN 15. 926 mls/hr IV .[id number] [facility] Rx#:[id number] Tube Feeding 54 Output: Gastric Drainage 150 Drainage 415 25 Bilateral Abdomen 415 25 Urine 1155 988 175 Stool 200 Oral Regurgitation 100 Estimated Blood Loss 50 Other: Voiding Method Indwelling Catheter Indwelling Catheter ABP, PAP, CO, CI - Last Documented Arterial Blood Pressure 153/92 - Constitutional General appearance: Present: no acute distress - Respiratory Details: Lungs sounds diminished in the bases bilaterally. Respirations even, nonlabored on mechanical ventilation. Current vent settings FiO2 50%, tidal volume 400, respiratory rate 20, PEEP 5. 7.5 ET tube present, 22 at the lip. - Cardiovascular Details: S1, S2 present. Regular rate and rhythm, sinus tach with heart rate in the low 100s. Palpable peripheral pulses bilaterally. Generalized edema present. Heart hugger, antiembolism stockings, SCDs present. - Gastrointestinal Gastrointestinal Comment(s): Abdomen soft, nontender, nondistended. Active bowel sounds present 4 quadrants. OG tube present, tube feedings to resume today. Fecal management system in place, liquid green stool present - Genitourinary Genitourinary Comment(s): Yu present draining yellow urine, 45-100 mL/hr, 2143 mL in the last 24 hours. - Integumentary Integumentary Comment(s): Anterior chest incision closed with franc, Prevena VAC in place and intact, 3 RAHEEM drains present with serosanguineous drainage. Left lower extremity EVH site well approximated without redness or drainage, bruising present - Neurologic Neurologic Comment(s): Opens eyes, tracks. Shakes head no when asked if in pain. Withdraws to painful stimuli x all four extremities - Musculoskeletal Musculoskeletal: Present: generalized weakness - Psychiatric Psychiatric Comment(s): alert, eyes open, tracks, doesn't follow commands - Allied health notes Allied health notes reviewed: nursing - Labs CBC & Chem 7: 09/04/20 03:23 09/04/20 07:21 Labs: Abnormal Lab Results - Last 24 Hours (Table) 09/03/20 09/03/20 09/03/20 Range/Units 11:32 12:09 18:02 WBC (3.8-10.6) k/uL RBC (3.80-5.40) m/uL Hgb (11.4-16.0) gm/dL Hct (34.0-46.0) % MCHC (31.0-37.0) g/dL RDW (11.5-15.5) % Neutrophils # (1.3-7.7) k/uL Eosinophils # (0-0.7) k/uL ESR 102 H (0-20) mm/hr Sodium (137-145) mmol/L Potassium 3.4 L (3.5-5.1) mmol/L Chloride (98-107) mmol/L BUN (7-17) mg/dL Creatinine (0.52-1.04) mg/dL Glucose (74-99) mg/dL POC Glucose (mg/dL) 113 H (75-99) mg/dL Calcium (8.4-10.2) mg/dL Magnesium (1.6-2.3) mg/dL Total Bilirubin (0.2-1.3) mg/dL AST (14-36) U/L Alkaline Phosphatase (38-126) U/L C-Reactive Protein (<10.0) mg/L Albumin (3.5-5.0) g/dL Procalcitonin (0.02-0.09) ng/mL Urine Protein (Negative) Urine Blood (Negative) Urine Mucus (None) /hpf 09/03/20 09/03/20 09/03/20 Range/Units 18:02 18:02 18:39 WBC (3.8-10.6) k/uL RBC (3.80-5.40) m/uL Hgb (11.4-16.0) gm/dL Hct (34.0-46.0) % MCHC (31.0-37.0) g/dL RDW (11.5-15.5) % Neutrophils # (1.3-7.7) k/uL Eosinophils # (0-0.7) k/uL ESR (0-20) mm/hr Sodium (137-145) mmol/L Potassium (3.5-5.1) mmol/L Chloride (98-107) mmol/L BUN (7-17) mg/dL Creatinine (0.52-1.04) mg/dL Glucose (74-99) mg/dL POC Glucose (mg/dL) 104 H (75-99) mg/dL Calcium (8.4-10.2) mg/dL Magnesium (1.6-2.3) mg/dL Total Bilirubin (0.2-1.3) mg/dL AST (14-36) U/L Alkaline Phosphatase (38-126) U/L C-Reactive Protein 155.3 H (<10.0) mg/L Albumin (3.5-5.0) g/dL Procalcitonin 3.57 H (0.02-0.09) ng/mL Urine Protein (Negative) Urine Blood (Negative) Urine Mucus (None) /hpf 09/03/20 09/04/20 09/04/20 Range/Units 20:06 00:43 03:23 WBC (3.8-10.6) k/uL RBC (3.80-5.40) m/uL Hgb (11.4-16.0) gm/dL Hct (34.0-46.0) % MCHC (31.0-37.0) g/dL RDW (11.5-15.5) % Neutrophils # (1.3-7.7) k/uL Eosinophils # (0-0.7) k/uL ESR (0-20) mm/hr Sodium 149 H (137-145) mmol/L Potassium (3.5-5.1) mmol/L Chloride 115 H (98-107) mmol/L BUN 59 H (7-17) mg/dL Creatinine 1.37 H (0.52-1.04) mg/dL Glucose 129 H (74-99) mg/dL POC Glucose (mg/dL) 133 H (75-99) mg/dL Calcium 8.1 L (8.4-10.2) mg/dL Magnesium 2.6 H (1.6-2.3) mg/dL Total Bilirubin 2.0 H (0.2-1.3) mg/dL AST 39 H (14-36) U/L Alkaline Phosphatase 197 H (38-126) U/L C-Reactive Protein (<10.0) mg/L Albumin 2.9 L (3.5-5.0) g/dL Procalcitonin (0.02-0.09) ng/mL Urine Protein 1+ H (Negative) Urine Blood Small H (Negative) Urine Mucus Rare H (None) /hpf 09/04/20 09/04/20 Range/Units 03:23 05:40 WBC 17.5 H (3.8-10.6) k/uL RBC 2.44 L (3.80-5.40) m/uL Hgb 7.2 L (11.4-16.0) gm/dL Hct 23.4 L (34.0-46.0) % MCHC 30.7 L (31.0-37.0) g/dL RDW 16.4 H (11.5-15.5) % Neutrophils # 13.1 H (1.3-7.7) k/uL Eosinophils # 1.0 H (0-0.7) k/uL ESR (0-20) mm/hr Sodium (137-145) mmol/L Potassium (3.5-5.1) mmol/L Chloride (98-107) mmol/L BUN (7-17) mg/dL Creatinine (0.52-1.04) mg/dL Glucose (74-99) mg/dL POC Glucose (mg/dL) 144 H (75-99) mg/dL Calcium (8.4-10.2) mg/dL Magnesium (1.6-2.3) mg/dL Total Bilirubin (0.2-1.3) mg/dL AST (14-36) U/L Alkaline Phosphatase (38-126) U/L C-Reactive Protein (<10.0) mg/L Albumin (3.5-5.0) g/dL Procalcitonin (0.02-0.09) ng/mL Urine Protein (Negative) Urine Blood (Negative) Urine Mucus (None) /hpf Microbiology - Last 24 Hours (Table) 08/30/20 03:56 Blood Culture - Preliminary Blood No Growth after 120 hours 09/02/20 18:52 Blood Culture - Preliminary Blood No Growth after 24 hours 09/01/20 14:40 Blood Culture - Preliminary Blood No Growth after 48 hours - Imaging and Cardiology Chest x-ray: image reviewed Assessment and Plan Assessment: 1. Shortness of breath, acute diastolic heart failure, EF 55-60% on current TTE, bilateral pleural effusions 2. Lactic acidosis, septic shock, blood cultures positive for MSSA 3. Hypercapnic, hypoxic respiratory failure requiring BiPAP, with subsequent intubation and mechanical ventilation 4. Open sternal wound, surgically created, deep sternal wound infection with MSSA, S/P surgical exploration and debridement, wound VAC placement, subsequent removal of cable and partial resection of the manubrium as well as partial sternotomy and myocutaneous flap closure 5. Leukocytosis with bandemia, bandemia resolved 6. Acute kidney injury, metabolic acidosis, metabolic acidosis resolved, kidney function returning to normal after receiving dialysis 7. Acute hyperkalemia, resolved 8. Acute transaminitis secondary to hypoperfusion, resolving 9. History of hypertension, hypotensive this admission requiring vasopressors 10. Acute anemia, post transfusion PRBCs, on 11. Coronary artery disease with left main stenosis status post 2 vessel CABG on 08/10/2020 with expected postoperative acute blood loss anemia, hypotension, and urinary retention as well as candidal stomatititus 12. Hyponatremia, resolved 13. Pulmonary fibrosis, asthma 14. Hyperlipidemia, treated 15. Previous tobacco dependence 16. Obesity 17. Paroxysmal afib w/ RVR, atrial flutter, status post exclusion of the left atrial appendage using a 35 mm AtriClip, currently sinus tach Plan: 1. Ventilator management per pulmonary medicine. Weaning trials per pulmonary 2. Nephrology following, avoid nephrotoxins 3. Infectious disease following, final blood cultures/sternal wound cultures positive for MSSA, continue antibiotics, preliminary blood cultures from 09/01 an d 09/02 negative 4. Continue aspirin, Plavix, beta sisi therapy. Restart statin 5. No anticoagulation at this time 6. Will monitor daily labs and x-rays, ABGs. 7. Wean levo as tolerated 8. GI/DVT prophylaxis 9. Continue tube feeding for nutrition 10. Neurology consulted, appreciate recommendations 11. Will update family daily 12. More recommendations to follow Time with Patient: Greater than 30
[2020-09-04] MEDS: CISATRACURIUM 2 MG/ML 5 ML VIAL IV ONE ×2 (09:15→09:49)
--- NOTE | 2020-09-04 09:16 | XR ---
EXAMINATION TYPE: XR chest 1V portable DATE OF EXAM: 09/04/2020 COMPARISON: Chest x-ray 09/03/2020 HISTORY: Respiratory failure TECHNIQUE: Single frontal view of the chest is obtained. FINDINGS: Endotracheal tube and NG tube, left-sided and right-sided drainage tubes, midline franc, left atrial appendage clip change are all again noted, patient is rotated, postop change noted to th e cervical spine. No evident pneumothorax or sizable effusion. Bilateral pleural-parenchymal changes are similar to prior exam. IMPRESSION: Rotated exam, findings are similar to prior exam, correlate for edema, pneumonia, ARDS
[2020-09-04] MEDS: D5-0.45% NACL WITH KCL 20MEQ/L 1,000 ML IV SCH ×2 (09:47→20:34)
[2020-09-04] MEDS: fentaNYL (PF) 50 MCG/ML 2 ML AMP IVP PRN (09:47)
[2020-09-04] MEDS: FUROSEMIDE 10 MG/ML 4 ML VIAL IV SCH (10:05)
[2020-09-04] MEDS: CHLORHEXIDINE GLUCONATE 15 ML CUP MUCOUS MEM SCH ×2 (10:05→20:53)
[2020-09-04] MEDS: ATORVASTATIN 40 MG TAB PO SCH (10:09)
[2020-09-04] MEDS: PANTOPRAZOLE 40 MG/10 ML VIAL IVP SCH (10:09)
[2020-09-04] MEDS: METOPROLOL TARTRATE 50 MG TAB PO SCH ×2 (10:10→20:53)
[2020-09-04] MEDS: ASPIRIN 325 MG TAB PO SCH (10:10)
[2020-09-04] MEDS: DRY MOUTH SPRAY 44.3 SPRAY/44.3 ML SPRAY MUCOUS MEM SCH ×4 (10:11→21:05)
[2020-09-04] MEDS: CLOPIDOGREL 75 MG TAB PO SCH (10:11)
[2020-09-04 10:16] LABS: ABG Base Excess 2.2 mmol/L; ABG HCO3 26 mmol/L (21-25); ABG PCO2 34 mmHg (35-45); ABG PH 7.48 (7.35-7.45); ABG PO2 98 mmHg (83-108); ABG TCO2 27 mmol/L (19-24); Allen Test Performed? Yes
[2020-09-04] MEDS: POTASSIUM BICARBONATE/CIT AC 20 MEQ TABLET.EFF NG-TUBE SCH ×4 (10:24→19:09)
--- NOTE | 2020-09-04 10:27 | PCN ---
PROCEDURE NOTE PROCEDURE: Right brachial arterial line. OPERATORS: Dr. Guadalupe and Dr. Colunga. ARTERIAL LINE PLACEMENT: Indications: Hemodynamic monitoring. A time-out was completed verifying correct patient, procedure, site, positioning, and implant(s) or special equipment if applicable. King's test was performed to ensure adequate perfusion. The patient's right arm was prepped and draped in sterile fashion. 1% Lidocaine was used to anesthetize the area. An 18G Arrow arterial line was introduced into the right brachial artery. The catheter was threaded over the guide wire and the needle was removed with appropriate pulsatile blood return. Blood loss was minimal. The catheter was then sutured in place to the skin and a sterile dressing applied. Perfusion to the extremity distal to the point of catheter insertion was checked and found to be adequate. The patient tolerated the procedure well and there were no complications. There was informed consent and universal timeout. There was no immediate complication. There was good waveform and blood pressure reading. The catheter was sutured in place. A sterile dressing was applied by the nurse. The patient's arm will be placed on an armboard. MMODL / IJN: [id number] /
--- NOTE | 2020-09-04 10:31 | PCN ---
PROCEDURE NOTE PROCEDURE: Right femoral vein triple-lumen catheter. OPERATORS: Dr. Guadalupe and Dr. Colunga. TRIPLE LUMEN CATHETER PLACEMENT: Indication: Hemodynamic monitoring/Intravenous access. A time-out was completed verifying correct patient, procedure, site, positioning, and implant(s) or special equipment if applicable. The patient was placed in a dependent position appropriate for triple lumen catheter placement based on the vein to be cannulated. The patient's right groin was prepped and draped in sterile fashion. 1% Lidocaine was used to anesthetize the surrounding skin area. A triple lumen 9F Cordis catheter was introduced into the right common femoral vein using Seldinger technique. The catheter was threaded smoothly over the guide wire and appropriate blood return was obtained. Each lumen of the catheter was evacuated of air and flushed with sterile saline. The catheter was then sutured in place to the skin and a sterile dressing applied. Perfusion to the extremity distal to the point of catheter insertion was checked and found to be adequate. There was no immediate complications. There was universal timeout and informed consent. We used a right femoral vein. There was good blood return from all 3 ports. The patient tolerated procedure well. The catheter was sutured in place. Sterile dressing was applied by the nurse. There was no immediate complication. The patient tolerated both procedures very well. MMODL / IJN: [id number] /
--- NOTE | 2020-09-04 10:58 | P.PN ---
Subjective Progress Note Date: 09/04/20 HISTORY OF PRESENT ILLNESS This is a 75-year-old female patient of Dr. Rich Avila, Dr. Sloan and Dr. Guadaulpe. She has a past medical history significant for hypertension, hype rlipidemia, pulmonary fibrosis, asthma, obesity, remote history of tobacco dependence with smoking 32 years ago, osteoarthritis, cervical stenosis post anterior cervical decompression, discectomy and fusion, TIA as a child at age 11 and family history of premature coronary artery disease with her father being diagnosed in his early 50s. Recently, the patient has been experiencing episodes of shortness of breath over the past 6 months with just minimal activity. She also complained of some lower extremity swelling which did resolve with some diuresis. she underwent a stress test which showed anterior wall ischemia with small reversible defect. a 2-D echocardiogram which showed mild aortic valve insufficiency, mild mitral valve regurgitation, mild tricuspid valve regurgitation and left ventricular function to be normal with an ejection fraction of 55%. Subsequently she underwent an elective heart catheterization on 07/27/2020 which demonstrated a left main stenosis with QING with a calculation of 2.6 mm, a 40% stenosis to her mid left anterior descending coronary artery and a 30% stenosis to her right coronary artery. Due to the patient's symptoms and findings on her heart catheterization of left main stenosis a consult was placed to Dr. Sethi from cardiothoracic surgery for further evaluation and treatment recommendations. During her preoperative workup her serum sodium level was found to be 120 and was admitted prior to surgery for treatment of hyponatremia. Last admission On 08/06/2020-08/19/20 the patient was admitted to the hospital for treatment of her hyponatremia, and once her hyponatremia was resolved on 08/10/2020, asubsequently taken to the operating room where Dr. Sethi performed a double vessel coronary artery bypass grafting surgery using the left internal mammary artery to left anterior setting coronary artery, a reverse greater saphenous vein graft from the aorta to the first obtuse marginal coronary artery, endoscopic harvesting of the left greater saphenous vein from the groin Upon completion of the surgery the patient was transferred to the intensive care unit where she was recovered, monitored hemodynamically and where she progressed cardiac rehabilitation phase Her oxygen was titrated down, she continued to work with physical/occupational therapy and cardiac rehabilitation, she was tolerating an oral diet, her pain was well controlled without narcotics and she was ready to be discharged home with [facility] care on postoperative day #9. Did not require home O2 on last admission however she required new medication changes including diuretics during that last admission. Patient comes in in worsening shortness of breath anasarca, no chest pain, has BARKER, edma without leg pain new medications from last visit was compliant, requiring lipitor 75bid, tolvaptan. meotprolol 75 bid plavix, lasix 40 mg daily losartain 25 asa 325, ferrous sulfate and fluconazole. patient comes in now for CHF, anarsarc ely pleural effusion, consult with dr Sethi. and cardiology, if okay will be cardiothoracic surgeon can also perform the thoracentesis, however with hypoxemia, also have requested Dr. Gamboa's services. Patient has a hemoglobin of 7.0 on and 3, platelet count of 305, hemoglobin right to admission was 8.0 denies any Hemoccult stools, creatinine was 1.60 from a previous of 0.9 blood pressure is in the low 90s systolic, pulse ox, 90 on 4 L nasal cannula, patient was not discharged with home O2 during her last admission 08/24: A-Team was called for mental status changes. Patient was found to have a blood pressure 99/65, heart rate of 85 and pulse ox of 96% on a nonrebreather with respiratory rate of 32. Patient was transferred to the ICU. She was started on vancomycin and cefepime. Patient has been seen by cardiology with plan to continue vasopressor support, patient may need pleurocentesis. Stat echocardiogram was done to rule out pericardial effusion or tamponade. Patient has been seen by nephrology for acute kidney injury secondary to ATN secondary to hypotension and cardiorenal syndrome. Patient is currently on bicarb drip, status post Lasix 80 mg IV once. Renal replacement therapy to be initiated immediately. Vascular consult in place for a dialysis catheter placement and start hemodialysis today with second treatment tomorrow. Sternal wound was producing thick yellowish brown fluid, was opened approximately 2 cm and deep culture was taken, packed and covered with 4 x 4 dressing. She is requiring vasopressors. She is hypothermic and warming blanket is in place.Patient had minimal output yesterday and none today. She is status post 2.5 L of fluids. 08/25 patient was examined in the ICU. She was able to maintain oxygenation on BiPAP overnight switch to high flow 15 m this morning. Patient did have episodes of agitation last night and was started on Seroquel. She did receive a dose of Seroquel prior to admission and was found to be resting comfortably. Patient is off pressors and bicarbonate drip and metabolic acidosis seemed to have cleared off. On evaluation of patient's lab, WBC is 14.3, hemoglobin 6.5 platelet 208 ABG this morning has a pH of 7.47 CO2 74. Bicarb 29. Sodium has improved to 126 chloride 96 BUN 43 creatinine 2.79 lactic acid has improved to 2.9 calcium 7 liver enzymes elevated AST at 2874 ALT 1469 alkaline phosphatase 192 CRP 356 BNP 13,000 UA does suggest some infection with WBC of 88 hyaline casts 33 protein 2+ urine blood trace nitrite negative leukocyte Estrace negative. Wound cultures positive for presumptive staph aureus. Patient's blood culture from yesterday are positive with presumptive staph aureus. Repeat blood cultures ordered. Patient received 1 unit of PRBCs for low hemoglobin. Urine output has improved to 20-40 mL's per hour. Patient did receive a dose of DDAVP for hyponatremia. Normal saline is running at 50 mL per hour. Did receive hemodialysis today with 2 L ultrafiltration. Patient was also noted to be in A. fib with RVR intermittently and her dose of Lopressor was increased to 25 mg every 8 hours. Continue daptomycin and cefepime for antibiotic coverage. Monitor patient's for QTC prolongation well on Seroquel. Patient has significant dehiscence of wound and may need I&D 08/26: She was intubated and placed on mechanical ventilation overnight with pulse ox of 96%, tidal volume 450, FiO2 50, PEEP of 5. Temperature max last evening was 101.2. Heart rate 82, blood pressure 120/53. WBC 9.6, hemoglobin 10.8, platelet count 159. Sodium 134, potassium 4.7, chloride 100, CO2 25, BUN 14 creatinine 1.83. Blood sugars running between 100 2753. Total bilirubin 3.3, AST 1067, ALT 993, alkaline phosphatase 251. Magnesium 2.1. Patient is on vasopressors. clinical research monitor atrial flutter alternating with sinus rhythm. Patient is also on propofol and Seroquel discontinued. Thoracic surgery is possible taking her to or for I&D and considering wound VAC. Patient is on Plavix. Echocardiogram reveals normal LV function and mild aortic stenosis. Patient is currently on daptomycin and cefepime per Dr. Mcintyre. Urine output remains low at 15-20 mL per hour. Should she is scheduled for third hemodialysis treatment today. Patient is scheduled for Lasix 80 mg IV this afternoon. 08/27 she remains in the ICU, intubated and mechanically ventilated. Patient is going to the OR for debridement today. Patient remains intubated on 50% FiO2 and PEEP of 5, assist control rate of 20volume 450. Continues to require Levophed at 11mcg/ hr . Blood clots and culture positive for MSSA. Urine output is 50-60 mL per hour. Patient continues to be on sedation from propofol at 50 max per KG permanent. IV fluids at KVO. Patient continues to have good urine output after a dose of 80 mg of IV Lasix today. Vision tolerated 2.5 L ultrafiltration yesterday and is started on hemodialysis on August 24. No holiday sedation today. Plan to continue Lasix 80 IV once daily and holding hemodialysis. Anticoagulation held for debridement. 08/28 patient remains in the ICU. Did have sternal Exploration and debridement yesterday remains sedated on propofol. Patient continues to have high temp of 101.6, to 233 tachycardic 111 blood pressure 106/51 oxygen saturation 95% on 50% FiO2. Labs suggest a leukocytosis of 24.3 hemoglobin stable at 10.7 platelet count has dipped dropped to 78, he really suggest a pH of 7.53 pCO2 30 PaO2 57, chloride of 110 potassium 3.5 and anion gap of 6 BUN 46 creatinine 0.9 calcium 7.8 ALT 3:15 alkaline phosphatase 312 AST 112 blood cultures from 08/26 positive for staph aureus. Urine output 1.2 L in 24 hours Repeat blood cultures sent today. Patient continues to be normal sinus rhythm not currently on any anticoagulation at the possibility of going for another debridement. Patient's continues to be on levo fed and still stays intubated. Continue IV Lasix. Patient initiated on IV Lasix 08/29: Patient remain in the ICU, remain on mechanical ventilation, sternal exploration and debridement was done and still have packing area within open wound at this point. Oxygenation is better patient is not 3 to be off vent at this point. Her urine output has been good and hemodynamically stable. 08/30: Patient still on mechanical ventilation, his sternum 1 and was changed today still have significant amount of infection and pus was packed still open. Patient remain on nafcillin and Moni mycin. Still having positive blood culture. 08/31: Patient is more awake today doing trial of weaning parameter try to get patient off the respirator, her incision and infection along the sternum is no change still have packing on still on IV antibiotics. Hemodynamically is more stable. 09/01: Patient evaluated in the ICU, continues on mechanical ventilation. Wound packing was removed yesterday, purulence was noted on the packing, deep near the heart and purulence around the heart. She continues on IV clindamycin and nafcillin. Patient was taken off sedation yesterday for a trial of weaning, but she became hypertensive and tachypneic so she is placed back on sedation. 09/02: Patient remains intubated and on mechanical ventilation with tidal volume 400, FiO2 of 50% and PEEP of 5. Patient has been off sedation since Monday. She is receiving OG tube feedings. She appears to be opening meaning her eyes and can shake her head. Otherwise not moving extremities. She has a wound VAC in place to the sternal wound. Wound cultures and blood culture positive for MSSA. She is scheduled for sternal wound excision and debridement with flap reconstruction and graft tomorrow with Dr. Whittaker. Repeat blood work reveals WBC of 13.6, hemoglobin 8.5. BUN 66 and creatinine 1.62, potassium 3.2 and has been replaced, blood sugars running between 107 and 132. Because renal functioning is worsening, nephrology has recommended holding nafcillin. Repeat chest x-ray reveals correlate for pneumonia, edema, ARDS. 09/03: She remains in the intensive care unit intubated and on mechanical ventilation with tidal volume 400, FiO2 40, PEEP of 5. Patient is awake with eyes open. She nodded her head no to having pain. She had a temperature this morning of 101.6 at 6 AM. Antibiotics are currently in the form of Kefzol. Repeat chest x-ray was done this morning and report is pending. Patient has been seen by neurology and doubt critical illness neuropathy. CAT scan of the brain and cervical spine done that showed no acute fracture or dislocation in the cervical spine. No acute intracranial hemorrhage, mass effect or midline shift. Ongoing airspace disease. Cardiology has recommended reinitiating statin. Temperature max 101.6, heart rate 101, blood pressure 117/52, pulse ox 95%. Repeat blood work reveals WBC 15.4, hemoglobin 8.3, platelet count 243. Sodium 149, potassium 2.8, chloride 111, CO2 28, BUN 66 and creatinine 1.49. Total bilirubin 2.4, AST 43, ALT 33 and alkaline phosphatase 260. All previous blood cultures have been positive for staph aureus MSSA. A repeat blood culture on August 2029 showing no growth at 24 hours. 09/04: Yesterday, patient underwent excision of sternal wound, partial sternotomy and pectoralis flap procedure. This morning, patient had new lines done by pulmonary medicine. Dr. Mcintyre has recommended continuing Kefzol and repeat blood cultures are in progress. Repeat chest x-ray reveals rotated exam, findings similar to prior, correlate for edema, pneumonia, ARDS. Cardiothoracic surgeryhas ordered a consult with Dr. Yuan. He has evaluated patient for global weakness and does not think she has new cervical spine issues that would cause her global weakness.patient continues to have fever with temperature maximum 102.2, tachycardic in the low 100s, respiratory rate 30, blood pressure 103/60, pulse ox 98%. She remains intubated and on mechanical ventilation with tidal volume 400, FiO2 50, PEEP of 5. WBC 17.5, hemoglobin 7.2, platelet count 328. Sodium 149, potassium 3.8, chloride 115, CO2 26, BUN 59 and creatinine 1.37. Blood sugars running 129-144. Magnesium 2.6. Total bilirubin 2.0, AST 39, alkaline phosphatase 197, ALT 19.. sputum culture has been obtained. Most recent blood culture from September 02 showing no growth at 24 hours and blood culture from September 01 is no growth at 48 hours. Patient is currently on very minimal sedation. . REVIEW OF SYSTEMS Unable to obtain due to mental status change/intubation. PHYSICAL EXAMINATION Gen: This is a 75-year-old female. Patient is resting in ICU bed and appears to be comfortable. HEENT: Head is atraumatic, normocephalic. Pupils equal, round. Sclerae is anicteric. Patient intubated and on mechanical ventilation. NECK: Supple. No JVD. No lymphadenopathy. LUNGS: Diminished. No wheezes or rhonchi. No intercostal retractions. HEART: Regular rate and rhythm. 2/6 systolic murmur. Dressing to sternal wound. ABDOMEN: Soft. Bowel sounds are present. No masses. No tenderness. EXTREMITIES: 2+ bilat pitting edema. No calf tenderness. NEUROLOGICAL: Patient is unresponsive. ASSESSMENT AND PLAN 1. Acute diastolic heart failure, (POA) EF 55%, mild AI and mild MR and mild TR, also complicated by severe protein calorie malnutrition, Cardiology consult appreciated. Patient is currently off Lasix. 2. Acute hypoxemic respiratory failure. (POA) Patient has underlying pulmonary hypertension as well, consult with coronary. Patient is intubated and on mechanical ventilation. Pulmonary medicine is managing. 3. Acute kidney injury secondary to ATN secondary to hypotension and cardiorenal syndrome. (POA) Patient is status post dialysis catheter placement, hemodialysis. Patient is followed closely by nephrology. 4. Hyperkalemia secondary to potassium supplementation, losartan and acute kidney injury as well as severe acidosis. (POA) Consult with nephrology appreciated. Continue medical management. 5. Metabolic acidosis secondary to acute kidney injury. (POA) 6. Metabolic encephalopathy secondary to acute kidney injury, acute heart failure, acute respiratory failure, metabolic acidosis and hyperkalemia. (POA) 7. Sepsis with septic shock with multiorgan failure with metabolic encephal opathy, acute kidney injury, acute heart failure, acute respiratory failure. (POA) status post sternal exploration and sternal debridement on August 27, Patient is off vasopressors. 8. Sepsis with sternal wound dehiscence. (POA) Status post sternal exploration and sternal debridement on 08/27 followed by excision of sternal wound, partial sternotomy and pectoralis flap procedure on 09/03. Infectious disease consult appreciated. Continue Kefzol. 9. Acute blood loss anemia, postop, status post transfusion of 3 units of packed RBCs. Continue to monitor. 10. Hyponatremia. Continue to monitor. 11. CAD, with prior CABG performed on 08/10/2020, two-vessel, involving HOLLAND to LAD, and reverse greater saphenous vein to obtuse marginal coronary artery. Continue aspirin 325 mg daily, Plavix 75 mg daily, Toprol all 75 mg twice a day, 12. Severe protein calorie malnutrition, with anasarca and hypotension. 13. History of pulmonary fibrosis. Continue duo nebs and albuterol 14. Asthma, mild intermittent. Continue ipratropium albuterol nebulizers 15. Hyperlipidemia. Continue statin daily 16. Hypertension. Currently hypotensive 17. GI prophylaxis. Pantoprazole 18. Critical care neuropathy essentially ruled out by and neurology. 19. DVT prophylaxis: SCDs 20. Blood sugar management in a nondiabetic. insulin scale every 6 hours. 21. Acute transaminitis secondary to hypoperfusion. Prognosis guarded DISCHARGE PLAN TBD. Impression and plan of care have been directed as dictated by the signing physician. Monica Fragoso nurse practitioner acting as scribe for signing physician. Objective - Vital Signs Vital signs: Vital Signs Temp 100.2 F H 09/04/20 05:00 Pulse 114 H 09/04/20 07:00 Resp 30 H 09/04/20 07:00 BP 97/53 09/04/20 07:00 Pulse Ox 98 09/04/20 07:00 Intake & Output 09/03/20 09/04/20 09/04/20 18:59 06:59 18:59 Intake Total 1524 1230.914 75 Output Total 1205 1653 400 Balance 319 -422.086 -325 Weight 87.7 kg Intake: IV 1470 1198 75 Calcium Gluconate 1 gm In 100 Sodium Chloride 0.9% 100 ml @ 100 mls/hr IVPB ONCE ONE Rx#:[id number] D5-0.45% NaCl with KCl 900 75 20Meq/l 1,000 ml @ 75 mls /hr IV .[id number] [facility] Rx#: [id number] Norepinephrin 4 mg-0.9% 198 Ns Pmx 4 mg In 250 ml @ 0 mls/hr IV .STK-MED ONE Rx#:[id number] Sodium Chloride 0.9% 1, 120 000 ml @ 20 mls/hr IV . Q24H [facility] Rx#:[id number] ceFAZolin 2 gm In Sodium 150 Chloride 0.9% 50 ml @ 100 mls/hr IVPB Q8HR [facility] Rx# :[id number] Intake, IV Titration 32.914 Amount Norepinephrine 4 mg In 32.914 Sodium Chloride 0.9% 250 ml @ 0.05 MCG/KG/MIN 15. 926 mls/hr IV .[id number] [facility] Rx#:[id number] Tube Feeding 54 Output: Gastric Drainage 150 Drainage 415 25 Bilateral Abdomen 415 25 Urine 1155 988 175 Stool 200 Oral Regurgitation 100 Estimated Blood Loss 50 Other: Voiding Method Indwelling Catheter Indwelling Catheter ABP, PAP, CO, CI - Last Documented Arterial Blood Pressure 153/92 - Labs CBC & Chem 7: 09/04/20 03:23 09/04/20 07:21 Labs: Abnormal Lab Results - Last 24 Hours (Table) 09/03/20 09/03/20 09/03/20 Range/Units 11:32 12:09 18:02 WBC (3.8-10.6) k/uL RBC (3.80-5.40) m/uL Hgb (11.4-16.0) gm/dL Hct (34.0-46.0) % MCHC (31.0-37.0) g/dL RDW (11.5-15.5) % Neutrophils # (1.3-7.7) k/uL Eosinophils # (0-0.7) k/uL ESR 102 H (0-20) mm/hr Sodium (137-145) mmol/L Potassium 3.4 L (3.5-5.1) mmol/L Chloride (98-107) mmol/L BUN (7-17) mg/dL Creatinine (0.52-1.04) mg/dL Glucose (74-99) mg/dL POC Glucose (mg/dL) 113 H (75-99) mg/dL Calcium (8.4-10.2) mg/dL Magnesium (1.6-2.3) mg/dL Total Bilirubin (0.2-1.3) mg/dL AST (14-36) U/L Alkaline Phosphatase (38-126) U/L C-Reactive Protein (<10.0) mg/L Albumin (3.5-5.0) g/dL Procalcitonin (0.02-0.09) ng/mL Urine Protein (Negative) Urine Blood (Negative) Urine Mucus (None) /hpf 09/03/20 09/03/20 09/03/20 Range/Units 18:02 18:02 18:39 WBC (3.8-10.6) k/uL RBC (3.80-5.40) m/uL Hgb (11.4-16.0) gm/dL Hct (34.0-46.0) % MCHC (31.0-37.0) g/dL RDW (11.5-15.5) % Neutrophils # (1.3-7.7) k/uL Eosinophils # (0-0.7) k/uL ESR (0-20) mm/hr Sodium (137-145) mmol/L Potassium (3.5-5.1) mmol/L Chloride (98-107) mmol/L BUN (7-17) mg/dL Creatinine (0.52-1.04) mg/dL Glucose (74-99) mg/dL POC Glucose (mg/dL) 104 H (75-99) mg/dL Calcium (8.4-10.2) mg/dL Magnesium (1.6-2.3) mg/dL Total Bilirubin (0.2-1.3) mg/dL AST (14-36) U/L Alkaline Phosphatase (38-126) U/L C-Reactive Protein 155.3 H (<10.0) mg/L Albumin (3.5-5.0) g/dL Procalcitonin 3.57 H (0.02-0.09) ng/mL Urine Protein (Negative) Urine Blood (Negative) Urine Mucus (None) /hpf 09/03/20 09/04/20 09/04/20 Range/Units 20:06 00:43 03:23 WBC (3.8-10.6) k/uL RBC (3.80-5.40) m/uL Hgb (11.4-16.0) gm/dL Hct (34.0-46.0) % MCHC (31.0-37.0) g/dL RDW (11.5-15.5) % Neutrophils # (1.3-7.7) k/uL Eosinophils # (0-0.7) k/uL ESR (0-20) mm/hr Sodium 149 H (137-145) mmol/L Potassium (3.5-5.1) mmol/L Chloride 115 H (98-107) mmol/L BUN 59 H (7-17) mg/dL Creatinine 1.37 H (0.52-1.04) mg/dL Glucose 129 H (74-99) mg/dL POC Glucose (mg/dL) 133 H (75-99) mg/dL Calcium 8.1 L (8.4-10.2) mg/dL Magnesium 2.6 H (1.6-2.3) mg/dL Total Bilirubin 2.0 H (0.2-1.3) mg/dL AST 39 H (14-36) U/L Alkaline Phosphatase 197 H (38-126) U/L C-Reactive Protein (<10.0) mg/L Albumin 2.9 L (3.5-5.0) g/dL Procalcitonin (0.02-0.09) ng/mL Urine Protein 1+ H (Negative) Urine Blood Small H (Negative) Urine Mucus Rare H (None) /hpf 09/04/20 09/04/20 Range/Units 03:23 05:40 WBC 17.5 H (3.8-10.6) k/uL RBC 2.44 L (3.80-5.40) m/uL Hgb 7.2 L (11.4-16.0) gm/dL Hct 23.4 L (34.0-46.0) % MCHC 30.7 L (31.0-37.0) g/dL RDW 16.4 H (11.5-15.5) % Neutrophils # 13.1 H (1.3-7.7) k/uL Eosinophils # 1.0 H (0-0.7) k/uL ESR (0-20) mm/hr Sodium (137-145) mmol/L Potassium (3.5-5.1) mmol/L Chloride (98-107) mmol/L BUN (7-17) mg/dL Creatinine (0.52-1.04) mg/dL Glucose (74-99) mg/dL POC Glucose (mg/dL) 144 H (75-99) mg/dL Calcium (8.4-10.2) mg/dL Magnesium (1.6-2.3) mg/dL Total Bilirubin (0.2-1.3) mg/dL AST (14-36) U/L Alkaline Phosphatase (38-126) U/L C-Reactive Protein (<10.0) mg/L Albumin (3.5-5.0) g/dL Procalcitonin (0.02-0.09) ng/mL Urine Protein (Negative) Urine Blood (Negative) Urine Mucus (None) /hpf Microbiology - Last 24 Hours (Table) 08/30/20 03:56 Blood Culture - Preliminary Blood No Growth after 120 hours 09/02/20 18:52 Blood Culture - Preliminary Blood No Growth after 24 hours 09/01/20 14:40 Blood Culture - Preliminary Blood No Growth after 48 hours
--- NOTE | 2020-09-04 11:11 | P.PN ---
Subjective Progress Note Date: 09/04/20 Principal diagnosis: Respiratory failure, sternal wound infection. Reevaluated today on 08/28/2020, patient remains in the ICU, intubated and mechanically ventilated. Her assist-control rate is 20, volume is 450 FiO2 is 50% PEEP was at 5 and I increased it up to 8. ABG showed a pO2 of 57 pCO2 of 30 pH of 7.53. O2 saturation on the monitor is 96%. Patient remains on norepine phrine at 0.07 mcg/kg/m, she is also on propofol at 65 mcg/kg/m. Patient is on enteral feeding. Remains on cefepime and daptomycin for her positive blood cultures/MSSA. Patient is also on Lasix at 80 mg IV push every 24 hours. Her urine output has been good. And her chest x-ray continues to show mild congestive heart failure changes. Patient has leukocytosis with WBC count 24.3, electrolytes are normal BUN is 46 creatinine 0.90. Liver enzymes are trending down slowly Patient was reevaluated today on 08/29/2020, remains intubated and mechanically ventilated. She is on assist control rate of 20 tidal volume is 450 FiO2 is 50% and PEEP of 8. ABG showed a pO2 of 56 pCO2 of 35 pH of 7.50 however her O2 saturation on the monitor is 99%. Patient remains on norepinephrine at 0.05 mcg/kg/m, he is on propofol at 70 mcg/kg/m, she is on Lasix 80 mg IV push daily, with good urine output. IV fluid mostly at KVO. Antibiotics garzon she is on cefazolin and clindamycin. Patient had MSSA in the blood and in the sternal wound. Chest x-ray continues to show evidence of pulmonary edema, and now she seems to be developing some consolidation in the right upper lobe medially. Her sternum remains open, decision regarding sternal closure will be made in the next 24-48 hours by thoracic surgery. Patient continues to have leukocytosis with WBC count of 24.2 hemoglobin is 10.6, basic metabolic profile is normal renal profile is normal not requiring any further dialysis, and she has good uri ne output responding well to diuretics. Liver enzymes seem to be trending down 08/30/2020 the patient remains intubated on a mechanical ventilator. This morning, she has an assist-control at the rate of 20 with tidal volume of 450 and the flow of 70 with a FiO2 of 50% with a PEEP of 8. The morning blood gases from today showed a pH of 7.55, and the pCO2 is a 35 with a pO2 of 72. Necessity ventilator changes were done. Peak airway pressure was 37. Static pressure was 32. Chest x-ray still showing diffuse bilateral pulmonary infiltrates consistent with pneumonia although possibility of an acute lung injury/ARDS cannot be completely excluded. ET tube is in a good location. The patient this morning is sedated with propofol which is running at 50 mcg/kg per minute. Sedation holiday was given this morning to evaluate her mental status. I was told yesterday that the patient did have some diminished level of consciousness once she was off the sedation. Nevertheless she was placed on sedation again to maintain synchrony with the mechanical ventilator. She is septic with staff aureus, MSSA has been cultured in her sputum, and her blood and in her sternal wound. Her current antibiotic coverage including a combination of nafcillin and clindamycin. She is afebrile. Sternal wound is being monitored by the cardiothoracic surgery team. Daily dressing changes are being done. There is still output which is purulent according to the nursing staff. Pressors and the patient is currently on norepinephrine running at 0.04 mcg/kg per minute. Renal function is improving and the creatinine is down to 0.78. The white cell count is at 19.8 with hemoglobin of 10.2 and a platelet count of 90. Liver function tests continue to improve with an AST of 68, ALT of 77 and the last blood culture was taken from 08/29/2020 was again positive for gram-positive bacteria most likely MSSA. The patient has orogastric tube in place and she is receiving vital high protein at a rate of 23 mL an hour. This is at goal for now. No abdominal distention. No increased residuals for now. She is afebrile. Progress note dated 08/31/2020. This is a 75-year-old female was admitted to the hospital on August 22, she came in for a sternal wound infection, and worsening respiratory status with heart failure. Unfortunately, she developed severe hypoxemic respiratory failure and required intubation on August 25. She was discovered to have a sternal wound infection and went to the operating room for debridement, on August 27. Microbiology is positive for methicillin sensitive staph aureus, and she remains on nafcillin and clindamycin. This patient initially had a two- vessel bypass grafting on 08/10/2020, and was discharged on 08/19/2020. Currently, the patient remains on the volume assist control mode, rate is 20, tidal volume is 400, FiO2 40%, and PEEP of 8. Blood gases show a PaO2 of 65, a PaCO2 39, and a pH is 7.58. His blood gases consistent with a relative hypoxemia, and a severe metabolic alkalosis. Currently, the norepinephrine has been weaned off. She remains on saline at 25 mL an hour, and she is currently not on any sedation. She's getting vital high protein at 23 mL an hour with a goal of 28 mL an hour. Today, regarding do a spontaneous breathing trial, on pressor support of 15, CPAP of 5. If the patient shows any signs of deterioration, such as tachycardia, tachypnea, hypertension, diaphoresis, higher respiratory rates, and/or lower tidal volumes, the patient will be switched back to the volume assist control mode with the. Progress note dated 09/01/2020. 75-year-old female admitted back on August 22. She came into the hospital with a sternal wound infection. In addition, she had worsening respiratory status, with heart failure. She developed reinaldo hypoxemic respiratory failure and required intubation on August 25. At that time, she was discovered to have a sternal wound infection, secondary to staph aureus, and went to the operating room for debridement. This was on August 27. Microbiology is positive for methicillin sensitive staph aureus, and she remains on nafcillin and clindamycin. The patient had a two-vessel bypass grafting done on August 10, and was discharged on August 19. Currently, she remains on the volume assist control modality, the rate of 20, tidal volume 400, FiO2 50%, and PEEP of 5. This morning's blood gases, show a PaO2 of 58, a PaCO2 of 40, and a pH is 7.61. These arterial blood gases are consistent with hypoxemia, and a severe metabolic alkalosis. The FiO2 was increased from 40-50%. Currently, she is on propofol at 20 mcg/kg/m, saline at 15 mL an hour, and vital high protein at 54 mL an hour, which is goal. Today, we are going to ensure that her potassium exceeds 4.5, DC her Lasix, and add Diamox 500 mg a day. We also increased the FiO2 earlier this morning to 50%. She will not wean with his profound metabolic alkalosis, and likely, we will hypoventilate and retain carbon dioxide, to balance out her pH. Hence, it's imperative that we treat the alkalosis aggressively. Progress note dated 09/04/2020. 75-year-old female, admitted back on August 22. She came into the hospital with a sternal wound infection. She had worsening respiratory status with heart failure, and developed reinaldo hypoxemic respiratory failure and required intubation on 08/25. At that time, she was discovered to have a sternal wound infection secondary to staph aureus, and went to the operating room on 08/27, for debridement. Microbiology was positive for methicillin sensitive staph aureus. The patient had a two-vessel bypass grafting done on 08/10/2020, and was discharged on 08/19. She remains on the mechanical ventilator. She is on the volume assist control mode, rate of 20, tidal volume 400, FiO2 50%, and a PEEP of 5. She's currently on norepinephrine at 6.1 g her minute, D5W with half-normal saline and 20 mEq of potassium at 75 mL an hour, and tube feeds are currently on hold. This morning, we put a right femoral triple-lumen catheter in, as well as a right brachial arterial line. She received both fentanyl and Nimbex for the procedure. She is also postop day #1, status post excision of sternal wound, right pectoralis major myocutaneous flap, and left pectoralis major myocutaneous flap procedure. The patient's currently reasonably stable in the intensive care unit. No plans on any weaning her extubation at this time. Current laboratory data includes a white count of 17.5, hemoglobin 7.2, hematocrit 23.4, and platelet count 328,000. Morning arterial blood gas shows a PaO2 of 98, a PaCO2 of 34, and pH is 7.48. This blood gases consistent with nor moxemia, and a mild respiratory and metabolic alkalosis. Sodium is 149, potassium is 3.8, chloride 115, CO2 26, anion gap 8, BUN 59, creatinine 1.37. Chest x-ray shows bilateral infiltrates, which could relate to either pneumonia or pulmonary edema. X-ray is unchanged. Objective - Vital Signs Vital signs: Vital Signs Temp 100.2 F H 09/04/20 05:00 Pulse 114 H 09/04/20 07:00 Resp 30 H 09/04/20 07:00 BP 97/53 09/04/20 07:00 Pulse Ox 98 09/04/20 07:00 Intake & Output 09/03/20 09/04/20 09/04/20 18:59 06:59 18:59 Intake Total 1524 1230.914 75 Output Total 1205 1653 400 Balance 319 -422.086 -325 Weight 87.7 kg Intake: IV 1470 1198 75 Calcium Gluconate 1 gm In 100 Sodium Chloride 0.9% 100 ml @ 100 mls/hr IVPB ONCE ONE Rx#:[id number] D5-0.45% NaCl with KCl 900 75 20Meq/l 1,000 ml @ 75 mls /hr IV .[id number] [facility] Rx#: [id number] Norepinephrin 4 mg-0.9% 198 Ns Pmx 4 mg In 250 ml @ 0 mls/hr IV .[facility] Rx#:[id number] Sodium Chloride 0.9% 1, 120 000 ml @ 20 mls/hr IV . Q24H [facility] Rx#:[id number] ceFAZolin 2 gm In Sodium 150 Chloride 0.9% 50 ml @ 100 mls/hr IVPB Q8HR [facility] Rx# :[id number] Intake, IV Titration 32.914 Amount Norepinephrine 4 mg In 32.914 Sodium Chloride 0.9% 250 ml @ 0.05 MCG/KG/MIN 15. 926 mls/hr IV .[id number] [facility] Rx#:[id number] Tube Feeding 54 Output: Gastric Drainage 150 Drainage 415 25 Bilateral Abdomen 415 25 Urine 1155 988 175 Stool 200 Oral Regurgitation 100 Estimated Blood Loss 50 Other: Voiding Method Indwelling Catheter Indwelling Catheter ABP, PAP, CO, CI - Last Documented Arterial Blood Pressure 153/92 - Exam No acute distress, currently off sedation, not particularly responsive, but stable. HEENT examination is grossly unremarkable. Mucous membranes are moist. There is an orally placed endotracheal tube, and an orally placed nasogastric tube. Neck supple. Full range of motion. No adenopathy thyromegaly or neck vein distention. Cardiovascular examination reveals regular rhythm rate. S1-S2 normal. No S3 or S4. A soft systolic murmur is noted, grade 2/6. Heart rate is 114 bpm. Lungs reveal scattered rhonchi and crackles. Breath sounds equal bilaterally. No wheezes are appreciated. Breath sounds are diminished throughout. Abdomen soft, bowel sounds are heard. No masses or tenderness. Extremities are intact. No cyanosis or clubbing. Mild edema is noted throughout. Skin reveals a dressing over the sternal wound infection.. Neurologic examination reveals a poorly responsive white female. Eyes open. - Labs CBC & Chem 7: 09/04/20 03:23 09/04/20 07:21 Labs: Abnormal Lab Results - Last 24 Hours (Table) 09/03/20 09/03/20 09/03/20 Range/Units 11:32 12:09 18:02 WBC (3.8-10.6) k/uL RBC (3.80-5.40) m/uL Hgb (11.4-16.0) gm/dL Hct (34.0-46.0) % MCHC (31.0-37.0) g/dL RDW (11.5-15.5) % Neutrophils # (1.3-7.7) k/uL Eosinophils # (0-0.7) k/uL ESR 102 H (0-20) mm/hr ABG pH (7.35-7.45) ABG pCO2 (35-45) mmHg ABG HCO3 (21-25) mmol/L ABG Total CO2 (19-24) mmol/L ABG O2 Saturation (94-97) % Sodium (137-145) mmol/L Potassium 3.4 L (3.5-5.1) mmol/L Chloride (98-107) mmol/L BUN (7-17) mg/dL Creatinine (0.52-1.04) mg/dL Glucose (74-99) mg/dL POC Glucose (mg/dL) 113 H (75-99) mg/dL Calcium (8.4-10.2) mg/dL Magnesium (1.6-2.3) mg/dL Total Bilirubin (0.2-1.3) mg/dL AST (14-36) U/L Alkaline Phosphatase (38-126) U/L C-Reactive Protein (<10.0) mg/L Albumin (3.5-5.0) g/dL Procalcitonin (0.02-0.09) ng/mL Urine Protein (Negative) Urine Blood (Negative) Urine Mucus (None) /hpf 09/03/20 09/03/20 09/03/20 Range/Units 18:02 18:02 18:39 WBC (3.8-10.6) k/uL RBC (3.80-5.40) m/uL Hgb (11.4-16.0) gm/dL Hct (34.0-46.0) % MCHC (31.0-37.0) g/dL RDW (11.5-15.5) % Neutrophils # (1.3-7.7) k/uL Eosinophils # (0-0.7) k/uL ESR (0-20) mm/hr ABG pH (7.35-7.45) ABG pCO2 (35-45) mmHg ABG HCO3 (21-25) mmol/L ABG Total CO2 (19-24) mmol/L ABG O2 Saturation (94-97) % Sodium (137-145) mmol/L Potassium (3.5-5.1) mmol/L Chloride (98-107) mmol/L BUN (7-17) mg/dL Creatinine (0.52-1.04) mg/dL Glucose (74-99) mg/dL POC Glucose (mg/dL) 104 H (75-99) mg/dL Calcium (8.4-10.2) mg/dL Magnesium (1.6-2.3) mg/dL Total Bilirubin (0.2-1.3) mg/dL AST (14-36) U/L Alkaline Phosphatase (38-126) U/L C-Reactive Protein 155.3 H (<10.0) mg/L Albumin (3.5-5.0) g/dL Procalcitonin 3.57 H (0.02-0.09) ng/mL Urine Protein (Negative) Urine Blood (Negative) Urine Mucus (None) /hpf 09/03/20 09/04/20 09/04/20 Range/Units 20:06 00:43 03:23 WBC (3.8-10.6) k/uL RBC (3.80-5.40) m/uL Hgb (11.4-16.0) gm/dL Hct (34.0-46.0) % MCHC (31.0-37.0) g/dL RDW (11.5-15.5) % Neutrophils # (1.3-7.7) k/uL Eosinophils # (0-0.7) k/uL ESR (0-20) mm/hr ABG pH (7.35-7.45) ABG pCO2 (35-45) mmHg ABG HCO3 (21-25) mmol/L ABG Total CO2 (19-24) mmol/L ABG O2 Saturation (94-97) % Sodium 149 H (137-145) mmol/L Potassium (3.5-5.1) mmol/L Chloride 115 H (98-107) mmol/L BUN 59 H (7-17) mg/dL Creatinine 1.37 H (0.52-1.04) mg/dL Glucose 129 H (74-99) mg/dL POC Glucose (mg/dL) 133 H (75-99) mg/dL Calcium 8.1 L (8.4-10.2) mg/dL Magnesium 2.6 H (1.6-2.3) mg/dL Total Bilirubin 2.0 H (0.2-1.3) mg/dL AST 39 H (14-36) U/L Alkaline Phosphatase 197 H (38-126) U/L C-Reactive Protein (<10.0) mg/L Albumin 2.9 L (3.5-5.0) g/dL Procalcitonin (0.02-0.09) ng/mL Urine Protein 1+ H (Negative) Urine Blood Small H (Negative) Urine Mucus Rare H (None) /hpf 09/04/20 09/04/20 09/04/20 Range/Units 03:23 05:40 10:13 WBC 17.5 H (3.8-10.6) k/uL RBC 2.44 L (3.80-5.40) m/uL Hgb 7.2 L (11.4-16.0) gm/dL Hct 23.4 L (34.0-46.0) % MCHC 30.7 L (31.0-37.0) g/dL RDW 16.4 H (11.5-15.5) % Neutrophils # 13.1 H (1.3-7.7) k/uL Eosinophils # 1.0 H (0-0.7) k/uL ESR (0-20) mm/hr ABG pH 7.48 H (7.35-7.45) ABG pCO2 34 L (35-45) mmHg ABG HCO3 26 H (21-25) mmol/L ABG Total CO2 27 H (19-24) mmol/L ABG O2 Saturation 99.0 H (94-97) % Sodium (137-145) mmol/L Potassium (3.5-5.1) mmol/L Chloride (98-107) mmol/L BUN (7-17) mg/dL Creatinine (0.52-1.04) mg/dL Glucose (74-99) mg/dL POC Glucose (mg/dL) 144 H (75-99) mg/dL Calcium (8.4-10.2) mg/dL Magnesium (1.6-2.3) mg/dL Total Bilirubin (0.2-1.3) mg/dL AST (14-36) U/L Alkaline Phosphatase (38-126) U/L C-Reactive Protein (<10.0) mg/L Albumin (3.5-5.0) g/dL Procalcitonin (0.02-0.09) ng/mL Urine Protein (Negative) Urine Blood (Negative) Urine Mucus (None) /hpf Microbiology - Last 24 Hours (Table) 09/04/20 00:25 Sputum Culture - Preliminary Sputum 08/30/20 03:56 Blood Culture - Preliminary Blood No Growth after 120 hours 09/02/20 18:52 Blood Culture - Preliminary Blood No Growth after 24 hours 09/01/20 14:40 Blood Culture - Preliminary Blood No Growth after 48 hours Assessment and Plan Assessment: Acute hypoxemic and hypercapnic respiratory failure, secondary to incisional wound infection, with methicillin sensitive staph aureus, as well as pneumonia, and bilateral pleural effusions. Postop day #1, status post excision of sternal wound, right pectoralis major myocutaneous flap, and left pectoralis major myocutaneous flap. Status post readmission on August 22, and intubation for respiratory failure on August 25. Sepsis, secondary to sternal wound infection, caused by methicillin sensitive staph aureus, with bacteremia. Septic shock, secondary to sternal wound infection. Acute kidney injury, requiring a brief period of hemodialysis. Acute metabolic acidosis, secondary to acute kidney injury. Acute diastolic CHF with bilateral pleural effusions. History of hypertension. History of cervical stenosis. Primary history of tobacco use. Mild pulmonary fibrosis/interstitial lung disease. Status post sternal exploration with sternal debridement, August 27. Recent prior history of two-vessel bypass grafting, on August 10, with discharge on August 19. Plan: Plan dated 09/04/2020. The patient is postop day #1, status post muscle flap procedure as noted above. She remains on the mechanical ventilator. Arterial blood gases could not be obtained today by respiratory therapy, and hence, a right brachial arterial line was placed. In addition, we placed a right femoral triple-lumen catheter. Ventilator settings include the volume assist control mode, rate of 20, tidal volume 400, FiO2 50%, and peak 5. The patient's currently on norepinephrine at 6.1 mcg/m, it is getting dextrose with half-normal saline and 20 mEq of potassium at 75 mL an hour. Tube feeds are on hold but will be restarted today. Her overall prognosis remains very guarded. For the procedures, we gave the patient 25 g of fentanyl, and 10 mg of Nimbex, 2. The procedures were done without incident. I did let the cardiothoracic team know. Time with Patient: Greater than 30
[2020-09-04 11:26] LABS: Glucose,Whole Blood 160 mg/dL (75-99)
[2020-09-04] MEDS: ASCORBIC ACID 500 MG TAB PO SCH (12:22)
[2020-09-04] MEDS: FERROUS SULFATE ORAL ELIXIR 300 MG/5 ML CUP PO SCH (12:22)
[2020-09-04] MEDS ORDERED: METOPROLOL TARTRATE 50 MG TAB PO STA (14:45)
[2020-09-04] MEDS: NOREPINEPHRINE 8 MG in SODIUM CHLORIDE 0.9% 250 ML IV SCH (15:54)
--- NOTE | 2020-09-04 16:56 | PN ---
PROGRESS NOTE DATE OF SERVICE: 09/04/2020 REASON FOR FOLLOWUP: 1. MSSA bacteremia secondary to sternal wound infection. 2. Persistent fever. INTERVAL HISTORY: The patient did spike a fever last night, early this morning. This patient has been afebrile since then. The patient is hemodynamically stable, slightly tachycardic. The patient did respond to some commands, is awake and follows. No worsening diarrhea per the nursing staff. PHYSICAL EXAMINATION: Blood pressure 120/41, pulse 111, temperature of 99.5. She had a T-max of 102.2. The patient is 98% on 50% FiO2. General description is an elderly female lying in bed in no distress. RESPIRATORY SYSTEM: Unlabored breathing with decreased breath sounds at the base. No wheeze. HEART: S1, S2. Regular rate and rhythm. ABDOMEN: Soft. No tenderness. LABS: Hemoglobin 7.2, white count 17.5, BUN of 59, creatinine 1.37. Blood cultures 09/01 as well as 09/02 have been negative so far. Urine obtained yesterday was negative. 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 Urine has been negative. There is a concern for possible in view of the patient's neurological symptoms and she may benefit from an MRI, which has been ordered by Neurology. The patient is covered with cefazolin. That will be continued and we will monitor her clinical course closely. MMODL / IJN: [id number] /
[2020-09-04 17:19] LABS: Glucose,Whole Blood 163 mg/dL (75-99)
--- NOTE | 2020-09-04 17:20 | PN ---
PROGRESS NOTE Patient is seen for followup for acute kidney injury and volume overload. The patient was admitted with severe sepsis, ATN, and required dialysis on initial admission. Her renal function had improved and dialysis catheter has now been removed. She has had good urine output, serum creatinine staying at about 1.3 mg/dL now. She did have an acute kidney injury 2 days ago, possibly related to nafcillin. This is improved now. Patient has been bacteremic, with blood cultures growing MSSA up until 08/31/2020. Blood cultures following that have been negative thus far. The patient had wound infection on the sternal wound and is status post muscle flap yesterday. PHYSICAL EXAMINATION: On examination today, blood pressure was 102/50, heart rate of 130 per minute. Heart rate has been about 107 to 112 per minute. Patient is afebrile. EXAMINATION OF THE HEART: S1 and S2. EXAMINATION OF LUNGS: Bilateral breath sounds are heard. Patient remains on the vent. ABDOMEN: Soft, distended. Abdominal wall edema noted. Examination of lower extremities shows improving edema. CLIENT REPORTING ASSOCIATE exam shows patient is moving her legs. She had been following and tracking with her eyes previously. [id number] urine output about 4 L yesterday. LABS: Sodium of 149, potassium 3.8, chloride 115. CO2 is 26, BUN 59, creatinine 1.37, hemoglobin 7.2 g/dL. ASSESSMENT: 1. Acute kidney injury on initial admission secondary to acute tubular necrosis and sepsis, which is now improved. The patient did have another episode of acute kidney injury 2 days ago, most likely related to nafcillin, which was discontinued, and renal function continues to improve now. 2. Severe volume overload, status post diuresis. Lasix was held for a couple of days as patient was quite alkalotic, and there was improvement in volume status. However, it was restarted yesterday. 3. Hypernatremia associated with free water deficit. Free water has been increased down the feeding tube. 4. Methicillin-susceptible Staphylococcus aeruginosa bacteremia secondary to wound infection from sternal wound post coronary artery bypass surgery. 5. Acute hypoxic respiratory failure, currently on the vent. 6. Anemia. No active bleeding noted. PLAN: Increase free water down the feeding tube. Continue with the current dose of Lasix. Repeat labs in a.m. MMODL / IJN: [id number] /
--- NOTE | 2020-09-04 21:30 | P.PN ---
Subjective Progress Note Date: 09/04/20 Patient is awake, eyes are open, follows commands better than yesterday. Patient is still intubated. Per nurse report, patient is moving extremities a little. Slight shaking legs. Patient has just received fentanyl 25 g 20-30 minutes ago and also received 20 of Nimbex. Objective - Vital Signs Vital signs: Vital Signs Temp 99.6 F 09/04/20 16:00 Pulse 113 H 09/04/20 19:15 Resp 37 H 09/04/20 19:15 BP 119/43 09/04/20 18:00 Pulse Ox 98 09/04/20 19:15 Intake & Output 09/04/20 09/04/20 09/05/20 06:59 18:59 06:59 Intake Total 5602.679 4430.020 74 Output Total 1653 1290 225 Balance -422.086 348.020 -151 Weight 87.7 kg 87.7 kg Intake: IV 1198 570 20 Calcium Gluconate 1 gm In 100 Sodium Chloride 0.9% 100 ml @ 100 mls/hr IVPB ONCE ONE Rx#:[id number] D5-0.45% NaCl with KCl 900 570 20 20Meq/l 1,000 ml @ 20 mls /hr IV .Q24H [facility] Rx#: [id number] Norepinephrin 4 mg-0.9% 198 Ns Pmx 4 mg In 250 ml @ 0 mls/hr IV .STK-MED ONE Rx#:[id number] Intake, IV Titration 32.914 236.020 Amount Norepinephrine 4 mg In 32.914 221.086 Sodium Chloride 0.9% 250 ml @ 0.05 MCG/KG/MIN 15. 926 mls/hr IV .[id number] [facility] Rx#:[id number] Norepinephrine 8 mg In 14.934 Sodium Chloride 0.9% 250 ml @ 0.05 MCG/KG/MIN 8. 485 mls/hr IV .Q24H [facility] Rx#:[id number] Tube Feeding 432 54 Other 400 Output: Gastric Drainage 150 Drainage 415 25 70 Bilateral Abdomen 415 25 70 Urine 988 1065 155 Stool 200 Oral Regurgitation 100 Other: Voiding Method Indwelling Catheter Indwelling Catheter ABP, PAP, CO, CI - Last Documented Arterial Blood Pressure 153/50 - Exam On examination patient is awake, opens her eyes, , tracking, smiled on asking. Patient not able to move her arms or legs at all. Still intubated. Patient is completely quadriplegic. Reflexes are 3 in the right upper limb, 1+ in the left upper limb. 2+ at the knees, and bilateral Babinski. Patient has peripheral edema. - Labs CBC & Chem 7: 09/04/20 03:23 09/04/20 15:50 Labs: Abnormal Lab Results - Last 24 Hours (Table) 09/02/20 09/03/20 09/04/20 Range/Units 18:52 18:02 00:43 WBC (3.8-10.6) k/uL RBC (3.80-5.40) m/uL Hgb (11.4-16.0) gm/dL Hct (34.0-46.0) % MCHC (31.0-37.0) g/dL RDW (11.5-15.5) % Neutrophils # (1.3-7.7) k/uL Eosinophils # (0-0.7) k/uL ABG pH (7.35-7.45) ABG pCO2 (35-45) mmHg ABG HCO3 (21-25) mmol/L ABG Total CO2 (19-24) mmol/L ABG O2 Saturation (94-97) % Sodium (137-145) mmol/L Potassium (3.5-5.1) mmol/L Chloride (98-107) mmol/L BUN (7-17) mg/dL Creatinine (0.52-1.04) mg/dL Glucose (74-99) mg/dL POC Glucose (mg/dL) 133 H (75-99) mg/dL Calcium (8.4-10.2) mg/dL Magnesium (1.6-2.3) mg/dL Total Bilirubin (0.2-1.3) mg/dL AST (14-36) U/L Alkaline Phosphatase (38-126) U/L Albumin (3.5-5.0) g/dL Aldolase 8.4 H (1.2-7.6) U/L Procalcitonin 3.57 H (0.02-0.09) ng/mL 09/04/20 09/04/20 09/04/20 Range/Units 03:23 03:23 05:40 WBC 17.5 H (3.8-10.6) k/uL RBC 2.44 L (3.80-5.40) m/uL Hgb 7.2 L (11.4-16.0) gm/dL Hct 23.4 L (34.0-46.0) % MCHC 30.7 L (31.0-37.0) g/dL RDW 16.4 H (11.5-15.5) % Neutrophils # 13.1 H (1.3-7.7) k/uL Eosinophils # 1.0 H (0-0.7) k/uL ABG pH (7.35-7.45) ABG pCO2 (35-45) mmHg ABG HCO3 (21-25) mmol/L ABG Total CO2 (19-24) mmol/L ABG O2 Saturation (94-97) % Sodium 149 H (137-145) mmol/L Potassium (3.5-5.1) mmol/L Chloride 115 H (98-107) mmol/L BUN 59 H (7-17) mg/dL Creatinine 1.37 H (0.52-1.04) mg/dL Glucose 129 H (74-99) mg/dL POC Glucose (mg/dL) 144 H (75-99) mg/dL Calcium 8.1 L (8.4-10.2) mg/dL Magnesium 2.6 H (1.6-2.3) mg/dL Total Bilirubin 2.0 H (0.2-1.3) mg/dL AST 39 H (14-36) U/L Alkaline Phosphatase 197 H (38-126) U/L Albumin 2.9 L (3.5-5.0) g/dL Aldolase (1.2-7.6) U/L Procalcitonin (0.02-0.09) ng/mL 09/04/20 09/04/20 09/04/20 Range/Units 10:13 11:25 15:50 WBC (3.8-10.6) k/uL RBC (3.80-5.40) m/uL Hgb (11.4-16.0) gm/dL Hct (34.0-46.0) % MCHC (31.0-37.0) g/dL RDW (11.5-15.5) % Neutrophils # (1.3-7.7) k/uL Eosinophils # (0-0.7) k/uL ABG pH 7.48 H (7.35-7.45) ABG pCO2 34 L (35-45) mmHg ABG HCO3 26 H (21-25) mmol/L ABG Total CO2 27 H (19-24) mmol/L ABG O2 Saturation 99.0 H (94-97) % Sodium (137-145) mmol/L Potassium 3.4 L (3.5-5.1) mmol/L Chloride (98-107) mmol/L BUN (7-17) mg/dL Creatinine (0.52-1.04) mg/dL Glucose (74-99) mg/dL POC Glucose (mg/dL) 160 H (75-99) mg/dL Calcium (8.4-10.2) mg/dL Magnesium (1.6-2.3) mg/dL Total Bilirubin (0.2-1.3) mg/dL AST (14-36) U/L Alkaline Phosphatase (38-126) U/L Albumin (3.5-5.0) g/dL Aldolase (1.2-7.6) U/L Procalcitonin (0.02-0.09) ng/mL 09/04/20 Range/Units 17:17 WBC (3.8-10.6) k/uL RBC (3.80-5.40) m/uL Hgb (11.4-16.0) gm/dL Hct (34.0-46.0) % MCHC (31.0-37.0) g/dL RDW (11.5-15.5) % Neutrophils # (1.3-7.7) k/uL Eosinophils # (0-0.7) k/uL ABG pH (7.35-7.45) ABG pCO2 (35-45) mmHg ABG HCO3 (21-25) mmol/L ABG Total CO2 (19-24) mmol/L ABG O2 Saturation (94-97) % Sodium (137-145) mmol/L Potassium (3.5-5.1) mmol/L Chloride (98-107) mmol/L BUN (7-17) mg/dL Creatinine (0.52-1.04) mg/dL Glucose (74-99) mg/dL POC Glucose (mg/dL) 163 H (75-99) mg/dL Calcium (8.4-10.2) mg/dL Magnesium (1.6-2.3) mg/dL Total Bilirubin (0.2-1.3) mg/dL AST (14-36) U/L Alkaline Phosphatase (38-126) U/L Albumin (3.5-5.0) g/dL Aldolase (1.2-7.6) U/L Procalcitonin (0.02-0.09) ng/mL Microbiology - Last 24 Hours (Table) 09/02/20 18:52 Blood Culture - Preliminary Blood No Growth after 48 hours 09/01/20 14:40 Blood Culture - Preliminary Blood No Growth after 72 hours 09/04/20 00:25 Gram Stain - Preliminary Sputum Sputum Culture - Preliminary 08/30/20 03:56 Blood Culture - Preliminary Blood No Growth after 120 hours Assessment and Plan Assessment: * New onset quadriplegia, unclear etiology. Rule out critical illness myopathy, rule out spinal cord involvement like epidural abscess. CT of the cervical spine showed no evidence of discitis osteomyelitis. 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 * Status post CABG, followed by wound infection, requiring sternal debridement with persistent sepsis. Status post placement of muscle flap. * Septic shock with MSSA * Acute kidney injury * Acute transaminitis * CHF * Hypertension * History of cervical fusion, spinal stenosis in the past. Plan: * Patient continues to be quadriplegic. Reflexes are somewhat brisk. MRI of the cervical spine with and without contrast preferable, although without contrast may be fine. * Appreciate Orthopedic spine input. Hardware in the cervical spine is stable. No loosening. * CPK 74, TSH 1.87, aldolase 8.4 (1.2 to 7.6). * Critical care, ID also following. Discussed with ID.
[2020-09-04 23:54] LABS: Glucose,Whole Blood 165 mg/dL (75-99)
[2020-09-05] MEDS: fentaNYL (PF) 50 MCG/ML 2 ML AMP IVP PRN ×5 (00:24→22:36)
[2020-09-05 04:21] LABS: Anisocytosis Slight; Basophils # (A) 0.1 k/uL (0-0.2); Basophils % (A) 0 %; Eosinophils # (A) 0.9 k/uL (0-0.7); Eosinophils % (A) 7 %; Hypochromasia Marked; Lymphocytes # (A) 3.8 k/uL (1.0-4.8); Lymphocytes % (A) 27 %; MCH 28.5 pg (25.0-35.0); MCHC 30.7 g/dL (31.0-37.0); MCV 92.8 fL (80.0-100.0); Mean Platelet Volume 11.1; Monocytes # (A) 0.3 k/uL (0-1.0); Monocytes % (A) 2 %; Neutrophils # (A) 8.7 k/uL (1.3-7.7); Neutrophils % (A) 62 %; Platelet Count 313 k/uL (150-450); Poikilocytosis Slight; RBC 1.91 m/uL (3.80-5.40); RDW 16.8 % (11.5-15.5)
[2020-09-05 04:26] LABS: HCT 17.8 % (34.0-46.0); HGB 5.5 gm/dL (11.4-16.0)
[2020-09-05 04:53] LABS: Anisocytosis Slight; Basophils # (A) 0.1 k/uL (0-0.2); Basophils % (A) 0 %; Eosinophils # (A) 0.9 k/uL (0-0.7); Eosinophils % (A) 7 %; Hypochromasia Marked; Lymphocytes # (A) 3.6 k/uL (1.0-4.8); Lymphocytes % (A) 27 %; MCH 29.3 pg (25.0-35.0); MCHC 31.5 g/dL (31.0-37.0); MCV 92.8 fL (80.0-100.0); Mean Platelet Volume 10.6; Monocytes # (A) 0.4 k/uL (0-1.0); Monocytes % (A) 3 %; Neutrophils # (A) 8.3 k/uL (1.3-7.7); Neutrophils % (A) 62 %; Platelet Count 313 k/uL (150-450); Poikilocytosis Slight; RBC 1.85 m/uL (3.80-5.40); RDW 16.8 % (11.5-15.5); WBC 13.4 k/uL (3.8-10.6)
[2020-09-05 05:02] LABS: Albumin 2.4 g/dL (3.5-5.0); Calcium 8.2 mg/dL (8.4-10.2); Magnesium 2.7 mg/dL (1.6-2.3); Potassium 3.6 mmol/L (3.5-5.1); Total Bilirubin 1.3 mg/dL (0.2-1.3); Total Protein 6.1 g/dL (6.3-8.2)
[2020-09-05 05:03] LABS: HCT 17.2 % (34.0-46.0); HGB 5.4 gm/dL (11.4-16.0)
[2020-09-05 05:24] LABS: Glucose,Whole Blood 169 mg/dL (75-99)
[2020-09-05 05:25] LABS: ABG Base Excess 2.8 mmol/L; ABG HCO3 26 mmol/L (21-25); ABG Oxygen Saturation 99.7 % (94-97); ABG PCO2 35 mmHg (35-45); ABG PH 7.49 (7.35-7.45); ABG PO2 150 mmHg (83-108); ABG TCO2 27 mmol/L (19-24); Allen Test Performed? Yes
[2020-09-05] MEDS: INSULIN ASPART (NovoLOG) 100 UNIT/ML VIAL SQ SCH ×4 (05:27→23:36)
[2020-09-05] MEDS ORDERED: POTASSIUM BICARBONATE/CIT AC 20 MEQ TABLET.EFF NG-TUBE SCH ×2 (06:00→22:00)
--- NOTE | 2020-09-05 06:40 | XR ---
EXAMINATION TYPE: XR chest 1V portable DATE OF EXAM: 09/05/2020 CLINICAL HISTORY: Difficulty breathing progress study. TECHNIQUE: Single AP portable semiupright view of the chest is obtained. COMPARISON: Chest x-ray from one day earlier and older studies. FINDINGS: Stable endotracheal and orogastric tubes. Stable overlying coiled bilateral chest tubes. S table overlying sternal wires and mediastinal clips along with left atrial appendage clip. Partial vi sualization of fusion hardware cervical spine. Stable cardiomegaly. Increased opacities bilaterally r emain present. No visualized pneumothorax. IMPRESSION: Cardiomegaly with increased alveolar and interstitial edema and/or infiltrates bilaterall y remain present. Possible ARDS. No significant change from one day earlier.
--- NOTE | 2020-09-05 08:34 | PN ---
PROGRESS NOTE Mrs. Alvarenga is a 75-year-old female status post coronary artery bypass grafting, history of sternal wound dehiscence. She was readmitted to the hospital with respiratory failure requiring mechanical ventilation. Subsequently, debridement of the sternum and the pectoralis flap. She continues to be intubated. She opens her eye to verbal stimuli, but does not follow other commands. She was noted to be severely anemic and has been transfused. She continues to be on a low dose of norepinephrine. Her urine output has been stable. She is tolerating feeding tube. She continues to be at this time on aspirin, Lipitor 40 mg daily, Plavix 75 mg daily, Lasix 40 mg IV daily, metoprolol tartrate 50 mg twice a day. PHYSICAL EXAMINATION: VITAL SIGNS: Blood pressure in the 130s to 140s with a sinus tachycardia in the one teens to 120s. She has a temperature of a 100.8. LUNGS: Clear anteriorly, no wheezes. HEART: Regular rate and rhythm S1, S2. No S3 with systolic murmur. No diastolic murmur. No rub. ABDOMEN: Soft, positive bowel sounds. No organomegaly. EXTREMITIES: No significant edema. LAB DATA: Lab data revealed BUN and creatinine 45 and 1.24, which has been stable. Potassium 3.6. Her hemoglobin is down to 5.4. Her chest x-ray shows bilateral infiltrates, cannot exclude ARDS-like picture. IMPRESSION: 1. Respiratory failure status post coronary artery bypass grafting and subsequent debridement of the sternum. 2. Sternal wound dehiscence with pectoralis flap. 3. Severe anemia. 4. Acute renal injury, improving. 5. Status post coronary artery bypass grafting. 6. Hyperlipidemia. RECOMMENDATION: Will continue supportive care. Her respiratory status will be addressed by Dr. Guadalupe. She is being transfused to correct her severe anemia. There is no evidence of bruise or bleeding source. The prognosis remains guarded. MMODL / IJN: [id number] /
[2020-09-05] MEDS: HEPARIN SODIUM,PORCINE 5,000 UNIT/ML 1 ML VIAL SQ SCH ×3 (08:59→23:31)
[2020-09-05] MEDS: CHLORHEXIDINE GLUCONATE 15 ML CUP MUCOUS MEM SCH ×2 (08:59→20:30)
[2020-09-05] MEDS: CLOPIDOGREL 75 MG TAB PO SCH (08:59)
[2020-09-05] MEDS: PANTOPRAZOLE 40 MG/10 ML VIAL IVP SCH (08:59)
[2020-09-05] MEDS: ASPIRIN 325 MG TAB PO SCH (08:59)
[2020-09-05] MEDS: ATORVASTATIN 40 MG TAB PO SCH (08:59)
[2020-09-05] MEDS: METOPROLOL TARTRATE 50 MG TAB PO SCH ×2 (09:00→20:30)
[2020-09-05] MEDS: ACETAMINOPHEN TAB 325 MG TAB PO PRN ×2 (09:00→16:35)
[2020-09-05] MEDS: DEXTROSE 5% IN WATER 1,000 ML IV SCH (09:00)
[2020-09-05] MEDS: DRY MOUTH SPRAY 44.3 SPRAY/44.3 ML SPRAY MUCOUS MEM SCH ×4 (09:00→22:03)
--- NOTE | 2020-09-05 09:03 | P.PN ---
Subjective Progress Note Date: 09/05/20 Principal diagnosis: Respiratory failure, sternal wound infection. Reevaluated today on 08/28/2020, patient remains in the ICU, intubated and mechanically ventilated. Her assist-control rate is 20, volume is 450 FiO2 is 50% PEEP was at 5 and I increased it up to 8. ABG showed a pO2 of 57 pCO2 of 30 pH of 7.53. O2 saturation on the monitor is 96%. Patient remains on norepine phrine at 0.07 mcg/kg/m, she is also on propofol at 65 mcg/kg/m. Patient is on enteral feeding. Remains on cefepime and daptomycin for her positive blood cultures/MSSA. Patient is also on Lasix at 80 mg IV push every 24 hours. Her urine output has been good. And her chest x-ray continues to show mild congestive heart failure changes. Patient has leukocytosis with WBC count 24.3, electrolytes are normal BUN is 46 creatinine 0.90. Liver enzymes are trending down slowly Patient was reevaluated today on 08/29/2020, remains intubated and mechanically ventilated. She is on assist control rate of 20 tidal volume is 450 FiO2 is 50% and PEEP of 8. ABG showed a pO2 of 56 pCO2 of 35 pH of 7.50 however her O2 saturation on the monitor is 99%. Patient remains on norepinephrine at 0.05 mcg/kg/m, he is on propofol at 70 mcg/kg/m, she is on Lasix 80 mg IV push daily, with good urine output. IV fluid mostly at KVO. Antibiotics garzon she is on cefazolin and clindamycin. Patient had MSSA in the blood and in the sternal wound. Chest x-ray continues to show evidence of pulmonary edema, and now she seems to be developing some consolidation in the right upper lobe medially. Her sternum remains open, decision regarding sternal closure will be made in the next 24-48 hours by thoracic surgery. Patient continues to have leukocytosis with WBC count of 24.2 hemoglobin is 10.6, basic metabolic profile is normal renal profile is normal not requiring any further dialysis, and she has good uri ne output responding well to diuretics. Liver enzymes seem to be trending down 08/30/2020 the patient remains intubated on a mechanical ventilator. This morning, she has an assist-control at the rate of 20 with tidal volume of 450 and the flow of 70 with a FiO2 of 50% with a PEEP of 8. The morning blood gases from today showed a pH of 7.55, and the pCO2 is a 35 with a pO2 of 72. Necessity ventilator changes were done. Peak airway pressure was 37. Static pressure was 32. Chest x-ray still showing diffuse bilateral pulmonary infiltrates consistent with pneumonia although possibility of an acute lung injury/ARDS cannot be completely excluded. ET tube is in a good location. The patient this morning is sedated with propofol which is running at 50 mcg/kg per minute. Sedation holiday was given this morning to evaluate her mental status. I was told yesterday that the patient did have some diminished level of consciousness once she was off the sedation. Nevertheless she was placed on sedation again to maintain synchrony with the mechanical ventilator. She is septic with staff aureus, MSSA has been cultured in her sputum, and her blood and in her sternal wound. Her current antibiotic coverage including a combination of nafcillin and clindamycin. She is afebrile. Sternal wound is being monitored by the cardiothoracic surgery team. Daily dressing changes are being done. There is still output which is purulent according to the nursing staff. Pressors and the patient is currently on norepinephrine running at 0.04 mcg/kg per minute. Renal function is improving and the creatinine is down to 0.78. The white cell count is at 19.8 with hemoglobin of 10.2 and a platelet count of 90. Liver function tests continue to improve with an AST of 68, ALT of 77 and the last blood culture was taken from 08/29/2020 was again positive for gram-positive bacteria most likely MSSA. The patient has orogastric tube in place and she is receiving vital high protein at a rate of 23 mL an hour. This is at goal for now. No abdominal distention. No increased residuals for now. She is afebrile. Progress note dated 08/31/2020. This is a 75-year-old female was admitted to the hospital on August 22, she came in for a sternal wound infection, and worsening respiratory status with heart failure. Unfortunately, she developed severe hypoxemic respiratory failure and required intubation on August 25. She was discovered to have a sternal wound infection and went to the operating room for debridement, on August 27. Microbiology is positive for methicillin sensitive staph aureus, and she remains on nafcillin and clindamycin. This patient initially had a two- vessel bypass grafting on 08/10/2020, and was discharged on 08/19/2020. Currently, the patient remains on the volume assist control mode, rate is 20, tidal volume is 400, FiO2 40%, and PEEP of 8. Blood gases show a PaO2 of 65, a PaCO2 39, and a pH is 7.58. His blood gases consistent with a relative hypoxemia, and a severe metabolic alkalosis. Currently, the norepinephrine has been weaned off. She remains on saline at 25 mL an hour, and she is currently not on any sedation. She's getting vital high protein at 23 mL an hour with a goal of 28 mL an hour. Today, regarding do a spontaneous breathing trial, on pressor support of 15, CPAP of 5. If the patient shows any signs of deterioration, such as tachycardia, tachypnea, hypertension, diaphoresis, higher respiratory rates, and/or lower tidal volumes, the patient will be switched back to the volume assist control mode with the. Progress note dated 09/01/2020. 75-year-old female admitted back on August 22. She came into the hospital with a sternal wound infection. In addition, she had worsening respiratory status, with heart failure. She developed reinaldo hypoxemic respiratory failure and required intubation on August 25. At that time, she was discovered to have a sternal wound infection, secondary to staph aureus, and went to the operating room for debridement. This was on August 27. Microbiology is positive for methicillin sensitive staph aureus, and she remains on nafcillin and clindamycin. The patient had a two-vessel bypass grafting done on August 10, and was discharged on August 19. Currently, she remains on the volume assist control modality, the rate of 20, tidal volume 400, FiO2 50%, and PEEP of 5. This morning's blood gases, show a PaO2 of 58, a PaCO2 of 40, and a pH is 7.61. These arterial blood gases are consistent with hypoxemia, and a severe metabolic alkalosis. The FiO2 was increased from 40-50%. Currently, she is on propofol at 20 mcg/kg/m, saline at 15 mL an hour, and vital high protein at 54 mL an hour, which is goal. Today, we are going to ensure that her potassium exceeds 4.5, DC her Lasix, and add Diamox 500 mg a day. We also increased the FiO2 earlier this morning to 50%. She will not wean with his profound metabolic alkalosis, and likely, we will hypoventilate and retain carbon dioxide, to balance out her pH. Hence, it's imperative that we treat the alkalosis aggressively. Progress note dated 09/04/2020. 75-year-old female, admitted back on August 22. She came into the hospital with a sternal wound infection. She had worsening respiratory status with heart failure, and developed reinaldo hypoxemic respiratory failure and required intubation on 08/25. At that time, she was discovered to have a sternal wound infection secondary to staph aureus, and went to the operating room on 08/27, for debridement. Microbiology was positive for methicillin sensitive staph aureus. The patient had a two-vessel bypass grafting done on 08/10/2020, and was discharged on 08/19. She remains on the mechanical ventilator. She is on the volume assist control mode, rate of 20, tidal volume 400, FiO2 50%, and a PEEP of 5. She's currently on norepinephrine at 6.1 g her minute, D5W with half-normal saline and 20 mEq of potassium at 75 mL an hour, and tube feeds are currently on hold. This morning, we put a right femoral triple-lumen catheter in, as well as a right brachial arterial line. She received both fentanyl and Nimbex for the procedure. She is also postop day #1, status post excision of sternal wound, right pectoralis major myocutaneous flap, and left pectoralis major myocutaneous flap procedure. The patient's currently reasonably stable in the intensive care unit. No plans on any weaning her extubation at this time. Current laboratory data includes a white count of 17.5, hemoglobin 7.2, hematocrit 23.4, and platelet count 328,000. Morning arterial blood gas shows a PaO2 of 98, a PaCO2 of 34, and pH is 7.48. This blood gases consistent with nor moxemia, and a mild respiratory and metabolic alkalosis. Sodium is 149, potassium is 3.8, chloride 115, CO2 26, anion gap 8, BUN 59, creatinine 1.37. Chest x-ray shows bilateral infiltrates, which could relate to either pneumonia or pulmonary edema. X-ray is unchanged. Progress note dated 09/05/2020. 75-year-old female, admitted back on 08/22. Patient came into the hospital with a sternal wound infection, and developed worsening respiratory status, with heart failure, and reinaldo hypoxemic respiratory failure, requiring intubation on 08/25. At that time, she was discovered to have a sternal wound infection, secondary to staph aureus, and went to the operating room on 08/27, for debridem ent. Microbiology was positive for methicillin sensitive staph aureus. The patient had a two-vessel bypass grafting done on 08/10/2020, and was discharged home on 08/19. Currently, the patient remains on the ventilator. She is on the volume assist control mode, rate of 20, tidal volume 400, FiO2 40%, PEEP of 5. Arterial blood gases show a PaO2 of 150, PaCO2 35, pH is 7.49. The blood gases are consistent with hyperoxia, and a mild respiratory alkalosis. The patient will have a spontaneous breathing trial today, with a PSV of 80, and CPAP of 5. She's currently getting vital high protein at 54 mL an hour which is goal, and, D5.45, with 20 of potassium, at 20 mL an hour. She is on a small dose of norepinephrine, which is 0.04 g kilogram per minute, or 3.6 mcg/m. The patient is postop day #2, status post excision of sternal wound, with a right pectoralis major myocutaneous flap, and a left pectoralis major myocutaneous flap procedure. White blood count is 13.4, hemoglobin is only 5.4, hematocrit 17.2, and platelet count 313,000. She is currently getting blood. Sodium is 152, potassium 3.6, chlorides 120, carbon dioxide 26, anion gap 6, BUN 45, and creatinine 1.2. The IVs changed from D5 0.45, to just plain dextrose. Objective - Vital Signs Vital signs: Vital Signs Temp 101.6 F H 09/05/20 08:00 Pulse 121 H 09/05/20 08:45 Resp 34 H 09/05/20 08:45 BP 123/56 09/05/20 08:45 Pulse Ox 98 09/05/20 08:45 Intake & Output 09/04/20 09/05/20 09/05/20 18:59 06:59 18:59 Intake Total 2146.559 5939 260.702 Output Total 1290 990 110 Balance 348.020 298 150.702 Weight 87.7 kg 90.2 kg Intake: IV 570 240 40 D5-0.45% NaCl with KCl 570 240 40 20Meq/l 1,000 ml @ 20 mls /hr IV .Q24H [facility] Rx#: [id number] Intake, IV Titration 236.020 166.702 Amount Norepinephrine 4 mg In 221.086 Sodium Chloride 0.9% 250 ml @ 0.05 MCG/KG/MIN 15. 926 mls/hr IV .[id number] [facility] Rx#:[id number] Norepinephrine 8 mg In 14.934 166.702 Sodium Chloride 0.9% 250 ml @ 0.05 MCG/KG/MIN 8. 485 mls/hr IV .Q24H [facility] Rx#:[id number] Tube Feeding 432 648 54 Blood Product 0 Rc As-1 Unit 0 [id number] Other 400 400 Output: Drainage 25 185 20 Bilateral Abdomen 25 185 20 Urine 1065 805 90 Stool 200 Other: Voiding Method Indwelling Catheter Indwelling Catheter ABP, PAP, CO, CI - Last Documented Arterial Blood Pressure 132/42 - Exam No acute distress, currently off sedation, responds by nodding her head. The patient appears much more stable today. HEENT examination is grossly unremarkable. Mucous membranes are moist. There is an orally placed endotracheal tube, and an orally placed nasogastric tube. Neck supple. Full range of motion. No adenopathy thyromegaly or neck vein d istention. Cardiovascular examination reveals regular rhythm rate. S1-S2 normal. No S3 or S4. A soft systolic murmur is noted, grade 2/6. Heart rate is 122 bpm. Lungs reveal scattered rhonchi and crackles. Breath sounds equal bilaterally. No wheezes are appreciated. Breath sounds are diminished throughout. Abdomen soft, bowel sounds are heard. No masses or tenderness. Extremities are intact. No cyanosis or clubbing. Mild edema is noted throughout. Skin reveals a dressing over the sternal wound infection.. Neurologic examination shows improved responsiveness. The patient does not her head yes or no when asked certain questions. - Labs CBC & Chem 7: 09/05/20 04:30 09/05/20 04:00 Labs: Abnormal Lab Results - Last 24 Hours (Table) 08/23/20 09/02/20 09/03/20 Range/Units 00:16 18:52 13:25 WBC (3.8-10.6) k/uL RBC (3.80-5.40) m/uL Hgb (11.4-16.0) gm/dL Hct (34.0-46.0) % MCHC (31.0-37.0) g/dL RDW (11.5-15.5) % Neutrophils # (1.3-7.7) k/uL Eosinophils # (0-0.7) k/uL ABG pH (7.35-7.45) ABG pCO2 (35-45) mmHg ABG pO2 (83-108) mmHg ABG HCO3 (21-25) mmol/L ABG Total CO2 (19-24) mmol/L ABG O2 Saturation (94-97) % Sodium (137-145) mmol/L Potassium (3.5-5.1) mmol/L Chloride (98-107) mmol/L BUN (7-17) mg/dL Creatinine (0.52-1.04) mg/dL Glucose (74-99) mg/dL POC Glucose (mg/dL) (75-99) mg/dL Calcium (8.4-10.2) mg/dL Magnesium (1.6-2.3) mg/dL Alkaline Phosphatase (38-126) U/L Total Protein (6.3-8.2) g/dL Albumin (3.5-5.0) g/dL Aldolase 8.4 H (1.2-7.6) U/L Crossmatch See Detail See Detail 09/04/20 09/04/20 09/04/20 Range/Units 10:13 11:25 15:50 WBC (3.8-10.6) k/uL RBC (3.80-5.40) m/uL Hgb (11.4-16.0) gm/dL Hct (34.0-46.0) % MCHC (31.0-37.0) g/dL RDW (11.5-15.5) % Neutrophils # (1.3-7.7) k/uL Eosinophils # (0-0.7) k/uL ABG pH 7.48 H (7.35-7.45) ABG pCO2 34 L (35-45) mmHg ABG pO2 (83-108) mmHg ABG HCO3 26 H (21-25) mmol/L ABG Total CO2 27 H (19-24) mmol/L ABG O2 Saturation 99.0 H (94-97) % Sodium (137-145) mmol/L Potassium 3.4 L (3.5-5.1) mmol/L Chloride (98-107) mmol/L BUN (7-17) mg/dL Creatinine (0.52-1.04) mg/dL Glucose (74-99) mg/dL POC Glucose (mg/dL) 160 H (75-99) mg/dL Calcium (8.4-10.2) mg/dL Magnesium (1.6-2.3) mg/dL Alkaline Phosphatase (38-126) U/L Total Protein (6.3-8.2) g/dL Albumin (3.5-5.0) g/dL Aldolase (1.2-7.6) U/L Crossmatch 09/04/20 09/04/20 09/05/20 Range/Units 17:17 23:52 04:00 WBC 14.0 H (3.8-10.6) k/uL RBC 1.91 L (3.80-5.40) m/uL Hgb 5.5 L* D (11.4-16.0) gm/dL Hct 17.8 L* (34.0-46.0) % MCHC 30.7 L (31.0-37.0) g/dL RDW 16.8 H (11.5-15.5) % Neutrophils # 8.7 H (1.3-7.7) k/uL Eosinophils # 0.9 H (0-0.7) k/uL ABG pH (7.35-7.45) ABG pCO2 (35-45) mmHg ABG pO2 (83-108) mmHg ABG HCO3 (21-25) mmol/L ABG Total CO2 (19-24) mmol/L ABG O2 Saturation (94-97) % Sodium (137-145) mmol/L Potassium (3.5-5.1) mmol/L Chloride (98-107) mmol/L BUN (7-17) mg/dL Creatinine (0.52-1.04) mg/dL Glucose (74-99) mg/dL POC Glucose (mg/dL) 163 H 165 H (75-99) mg/dL Calcium (8.4-10.2) mg/dL Magnesium (1.6-2.3) mg/dL Alkaline Phosphatase (38-126) U/L Total Protein (6.3-8.2) g/dL Albumin (3.5-5.0) g/dL Aldolase (1.2-7.6) U/L Crossmatch 09/05/20 09/05/20 09/05/20 Range/Units 04:00 04:30 05:20 WBC 13.4 H (3.8-10.6) k/uL RBC 1.85 L (3.80-5.40) m/uL Hgb 5.4 L* (11.4-16.0) gm/dL Hct 17.2 L* (34.0-46.0) % MCHC (31.0-37.0) g/dL RDW 16.8 H (11.5-15.5) % Neutrophils # 8.3 H (1.3-7.7) k/uL Eosinophils # 0.9 H (0-0.7) k/uL ABG pH 7.49 H (7.35-7.45) ABG pCO2 (35-45) mmHg ABG pO2 150 H (83-108) mmHg ABG HCO3 26 H (21-25) mmol/L ABG Total CO2 27 H (19-24) mmol/L ABG O2 Saturation 99.7 H (94-97) % Sodium 152 H (137-145) mmol/L Potassium (3.5-5.1) mmol/L Chloride 120 H (98-107) mmol/L BUN 45 H (7-17) mg/dL Creatinine 1.20 H (0.52-1.04) mg/dL Glucose 150 H (74-99) mg/dL POC Glucose (mg/dL) (75-99) mg/dL Calcium 8.2 L (8.4-10.2) mg/dL Magnesium 2.7 H (1.6-2.3) mg/dL Alkaline Phosphatase 170 H (38-126) U/L Total Protein 6.1 L (6.3-8.2) g/dL Albumin 2.4 L (3.5-5.0) g/dL Aldolase (1.2-7.6) U/L Crossmatch 09/05/20 Range/Units 05:22 WBC (3.8-10.6) k/uL RBC (3.80-5.40) m/uL Hgb (11.4-16.0) gm/dL Hct (34.0-46.0) % MCHC (31.0-37.0) g/dL RDW (11.5-15.5) % Neutrophils # (1.3-7.7) k/uL Eosinophils # (0-0.7) k/uL ABG pH (7.35-7.45) ABG pCO2 (35-45) mmHg ABG pO2 (83-108) mmHg ABG HCO3 (21-25) mmol/L ABG Total CO2 (19-24) mmol/L ABG O2 Saturation (94-97) % Sodium (137-145) mmol/L Potassium (3.5-5.1) mmol/L Chloride (98-107) mmol/L BUN (7-17) mg/dL Creatinine (0.52-1.04) mg/dL Glucose (74-99) mg/dL POC Glucose (mg/dL) 169 H (75-99) mg/dL Calcium (8.4-10.2) mg/dL Magnesium (1.6-2.3) mg/dL Alkaline Phosphatase (38-126) U/L Total Protein (6.3-8.2) g/dL Albumin (3.5-5.0) g/dL Aldolase (1.2-7.6) U/L Crossmatch Microbiology - Last 24 Hours (Table) 08/30/20 03:56 Blood Culture - Final Blood No Growth after 144 hours 09/03/20 18:02 Blood Culture - Preliminary Blood No Growth after 24 hours 09/02/20 18:52 Blood Culture - Preliminary Blood No Growth after 48 hours 09/01/20 14:40 Blood Culture - Preliminary Blood No Growth after 72 hours 09/04/20 00:25 Gram Stain - Preliminary Sputum Sputum Culture - Preliminary Assessment and Plan Assessment: Acute hypoxemic and hypercapnic respiratory failure, secondary to incisional wound infection, with methicillin sensitive staph aureus, as well as pneumonia, and bilateral pleural effusions. Postop day #2, status post excision of sternal wound, right pectoralis major myocutaneous flap, and left pectoralis major myocutaneous flap. Status post readmission on August 22, and intubation for respiratory failure on August 25. Sepsis, secondary to sternal wound infection, caused by methicillin sensitive staph aureus, with bacteremia. Septic shock, secondary to sternal wound infection. Acute kidney injury, requiring a brief period of hemodialysis. Acute metabolic acidosis, secondary to acute kidney injury. Acute diastolic CHF with bilateral pleural effusions. History of hypertension. History of cervical stenosis. Primary history of tobacco use. Mild pulmonary fibrosis/interstitial lung disease. Status post sternal exploration with sternal debridement, August 27. Recent prior history of two-vessel bypass grafting, on August 10, with discharge on August 19. Plan: Plan dated 09/05/2020. The patient is quite anemic, and receiving packed red blood cells. In addition, because of her hypernatremia, hyperchloremia, we will change her IV to dextrose with potassium at 20 mL an hour. The patient's on a small amount of norepinephrine, 3.6 mcg/m. She's getting vital high protein at 54 mL now which is goal. Later today, the patient will have a trial on pressure support 8 and CPAP of 5. Overall prognosis remains very guarded. The patient is postop day #2, status post pectoralis major flap procedure, for her sternal wound infection. She remains on antibiotics. Additional recommendations and suggestions are forthcoming. We will continue to follow closely. Time with Patient: Greater than 30
--- NOTE | 2020-09-05 09:09 | P.PN ---
Subjective Patient is seen in follow-up for acute kidney injury. Renal function improving. Nonoliguric. Hemoglobin 5.4 this morning and she is currently receiving a unit of blood. Maintained on IV Lasix. Also receiving tube feeding. Currently on 40% FiO2. Vital signs: Temperature 101.6F this morning. Tachycardic. Blood pressure stable. HEENT: Intubated. LUNGS: Breath sounds decreased. HEART: Tachycardic. ABDOMEN: Soft, no distention noted. EXTREMITITES: Trace edema. Objective - Vital Signs Vital signs: Vital Signs Temp 101.6 F H 09/05/20 08:00 Pulse 121 H 09/05/20 08:45 Resp 34 H 09/05/20 08:45 BP 123/56 09/05/20 08:45 Pulse Ox 98 09/05/20 08:45 Intake & Output 09/04/20 09/05/20 09/05/20 18:59 06:59 18:59 Intake Total 0431.927 4587 260.702 Output Total 1290 990 110 Balance 348.020 298 150.702 Weight 87.7 kg 90.2 kg Intake: IV 570 240 40 D5-0.45% NaCl with KCl 570 240 40 20Meq/l 1,000 ml @ 20 mls /hr IV .Q24H [facility] Rx#: [id number] Intake, IV Titration 236.020 166.702 Amount Norepinephrine 4 mg In 221.086 Sodium Chloride 0.9% 250 ml @ 0.05 MCG/KG/MIN 15. 926 mls/hr IV .[id number] [facility] Rx#:[id number] Norepinephrine 8 mg In 14.934 166.702 Sodium Chloride 0.9% 250 ml @ 0.05 MCG/KG/MIN 8. 485 mls/hr IV .Q24H [facility] Rx#:[id number] Tube Feeding 432 648 54 Blood Product 0 Rc As-1 Unit 0 [id number] Other 400 400 Output: Drainage 25 185 20 Bilateral Abdomen 25 185 20 Urine 1065 805 90 Stool 200 Other: Voiding Method Indwelling Catheter Indwelling Catheter ABP, PAP, CO, CI - Last Documented Arterial Blood Pressure 132/42 - Labs CBC & Chem 7: 09/05/20 04:30 09/05/20 04:00 Labs: Abnormal Lab Results - Last 24 Hours (Table) 08/23/20 09/02/20 09/03/20 Range/Units 00:16 18:52 13:25 WBC (3.8-10.6) k/uL RBC (3.80-5.40) m/uL Hgb (11.4-16.0) gm/dL Hct (34.0-46.0) % MCHC (31.0-37.0) g/dL RDW (11.5-15.5) % Neutrophils # (1.3-7.7) k/uL Eosinophils # (0-0.7) k/uL ABG pH (7.35-7.45) ABG pCO2 (35-45) mmHg ABG pO2 (83-108) mmHg ABG HCO3 (21-25) mmol/L ABG Total CO2 (19-24) mmol/L ABG O2 Saturation (94-97) % Sodium (137-145) mmol/L Potassium (3.5-5.1) mmol/L Chloride (98-107) mmol/L BUN (7-17) mg/dL Creatinine (0.52-1.04) mg/dL Glucose (74-99) mg/dL POC Glucose (mg/dL) (75-99) mg/dL Calcium (8.4-10.2) mg/dL Magnesium (1.6-2.3) mg/dL Alkaline Phosphatase (38-126) U/L Total Protein (6.3-8.2) g/dL Albumin (3.5-5.0) g/dL Aldolase 8.4 H (1.2-7.6) U/L Crossmatch See Detail See Detail 09/04/20 09/04/20 09/04/20 Range/Units 10:13 11:25 15:50 WBC (3.8-10.6) k/uL RBC (3.80-5.40) m/uL Hgb (11.4-16.0) gm/dL Hct (34.0-46.0) % MCHC (31.0-37.0) g/dL RDW (11.5-15.5) % Neutrophils # (1.3-7.7) k/uL Eosinophils # (0-0.7) k/uL ABG pH 7.48 H (7.35-7.45) ABG pCO2 34 L (35-45) mmHg ABG pO2 (83-108) mmHg ABG HCO3 26 H (21-25) mmol/L ABG Total CO2 27 H (19-24) mmol/L ABG O2 Saturation 99.0 H (94-97) % Sodium (137-145) mmol/L Potassium 3.4 L (3.5-5.1) mmol/L Chloride (98-107) mmol/L BUN (7-17) mg/dL Creatinine (0.52-1.04) mg/dL Glucose (74-99) mg/dL POC Glucose (mg/dL) 160 H (75-99) mg/dL Calcium (8.4-10.2) mg/dL Magnesium (1.6-2.3) mg/dL Alkaline Phosphatase (38-126) U/L Total Protein (6.3-8.2) g/dL Albumin (3.5-5.0) g/dL Aldolase (1.2-7.6) U/L Crossmatch 09/04/20 09/04/20 09/05/20 Range/Units 17:17 23:52 04:00 WBC 14.0 H (3.8-10.6) k/uL RBC 1.91 L (3.80-5.40) m/uL Hgb 5.5 L* D (11.4-16.0) gm/dL Hct 17.8 L* (34.0-46.0) % MCHC 30.7 L (31.0-37.0) g/dL RDW 16.8 H (11.5-15.5) % Neutrophils # 8.7 H (1.3-7.7) k/uL Eosinophils # 0.9 H (0-0.7) k/uL ABG pH (7.35-7.45) ABG pCO2 (35-45) mmHg ABG pO2 (83-108) mmHg ABG HCO3 (21-25) mmol/L ABG Total CO2 (19-24) mmol/L ABG O2 Saturation (94-97) % Sodium (137-145) mmol/L Potassium (3.5-5.1) mmol/L Chloride (98-107) mmol/L BUN (7-17) mg/dL Creatinine (0.52-1.04) mg/dL Glucose (74-99) mg/dL POC Glucose (mg/dL) 163 H 165 H (75-99) mg/dL Calcium (8.4-10.2) mg/dL Magnesium (1.6-2.3) mg/dL Alkaline Phosphatase (38-126) U/L Total Protein (6.3-8.2) g/dL Albumin (3.5-5.0) g/dL Aldolase (1.2-7.6) U/L Crossmatch 09/05/20 09/05/20 09/05/20 Range/Units 04:00 04:30 05:20 WBC 13.4 H (3.8-10.6) k/uL RBC 1.85 L (3.80-5.40) m/uL Hgb 5.4 L* (11.4-16.0) gm/dL Hct 17.2 L* (34.0-46.0) % MCHC (31.0-37.0) g/dL RDW 16.8 H (11.5-15.5) % Neutrophils # 8.3 H (1.3-7.7) k/uL Eosinophils # 0.9 H (0-0.7) k/uL ABG pH 7.49 H (7.35-7.45) ABG pCO2 (35-45) mmHg ABG pO2 150 H (83-108) mmHg ABG HCO3 26 H (21-25) mmol/L ABG Total CO2 27 H (19-24) mmol/L ABG O2 Saturation 99.7 H (94-97) % Sodium 152 H (137-145) mmol/L Potassium (3.5-5.1) mmol/L Chloride 120 H (98-107) mmol/L BUN 45 H (7-17) mg/dL Creatinine 1.20 H (0.52-1.04) mg/dL Glucose 150 H (74-99) mg/dL POC Glucose (mg/dL) (75-99) mg/dL Calcium 8.2 L (8.4-10.2) mg/dL Magnesium 2.7 H (1.6-2.3) mg/dL Alkaline Phosphatase 170 H (38-126) U/L Total Protein 6.1 L (6.3-8.2) g/dL Albumin 2.4 L (3.5-5.0) g/dL Aldolase (1.2-7.6) U/L Crossmatch 09/05/20 Range/Units 05:22 WBC (3.8-10.6) k/uL RBC (3.80-5.40) m/uL Hgb (11.4-16.0) gm/dL Hct (34.0-46.0) % MCHC (31.0-37.0) g/dL RDW (11.5-15.5) % Neutrophils # (1.3-7.7) k/uL Eosinophils # (0-0.7) k/uL ABG pH (7.35-7.45) ABG pCO2 (35-45) mmHg ABG pO2 (83-108) mmHg ABG HCO3 (21-25) mmol/L ABG Total CO2 (19-24) mmol/L ABG O2 Saturation (94-97) % Sodium (137-145) mmol/L Potassium (3.5-5.1) mmol/L Chloride (98-107) mmol/L BUN (7-17) mg/dL Creatinine (0.52-1.04) mg/dL Glucose (74-99) mg/dL POC Glucose (mg/dL) 169 H (75-99) mg/dL Calcium (8.4-10.2) mg/dL Magnesium (1.6-2.3) mg/dL Alkaline Phosphatase (38-126) U/L Total Protein (6.3-8.2) g/dL Albumin (3.5-5.0) g/dL Aldolase (1.2-7.6) U/L Crossmatch Microbiology - Last 24 Hours (Table) 08/30/20 03:56 Blood Culture - Final Blood No Growth after 144 hours 09/03/20 18:02 Blood Culture - Preliminary Blood No Growth after 24 hours 09/02/20 18:52 Blood Culture - Preliminary Blood No Growth after 48 hours 09/01/20 14:40 Blood Culture - Preliminary Blood No Growth after 72 hours 09/04/20 00:25 Gram Stain - Preliminary Sputum Sputum Culture - Preliminary Assessment and Plan Plan: Assessment: 1. Acute kidney injury secondary to ATN secondary to hypotension/sepsis on admission and then from nafcillin. Baseline creatinine near 1. She did require hemodialysis earlier this admission has subsequently recovered kidney function. Creatinine 1.2 today. 2. Volume overload. Improving with diuresis. 3. Hypernatremia from lack of oral water intake. 4. Hypervolemic hyponatremia. Improved with ultrafiltration. 5. Wound dehiscence of the sternum with MSSA bacteremia. On antibiotics. Also underwent sternal debridement this admission. 6. Acute hypoxia respiratory failure. Currently on 40% FiO2. 7. Status post CABG in 08/10/2020. 8. Acute blood loss anemia requiring multiple blood transfusions this admission. Hemoglobin 5.4 this morning. Also on Aranesp. Plan: Maintain IV Lasix. Maintain tube feeding. Increase free water flushes to 300 mL every 4 hours. Repeat sodium level this evening. Per nurse, patient started receiving free water flushes earlier this morning. Continue to monitor renal function and urine output.
--- NOTE | 2020-09-05 09:39 | P.PN ---
Subjective Progress Note Date: 09/05/20 Principal diagnosis: Shortness of breath, acute diastolic heart failure, bilateral pleural effusion, lactic acidosis, hypercapnic respiratory failure requiring BiPAP followed by me chanical ventilation, deep sternal wound infection with MSSA, acute kidney injury, acute hyperkalemia, hyponatremia, acute transaminitis, hypotension requiring vasopressors use, acute anemia. Past medical history significant for coronary artery disease with left main stenosis status post 2 vessel CABG on 08/10/2020 with expected postoperative acute blood loss anemia, hypotension, and urinary retention as well as candidal stomatititus, hyponatremia, pulmonary fibrosis, asthma, hypertension, hyperlipidemia, previous tobacco dependence, obesity, osteoarthritis, cervical stenosis post anterior cervical disc decompression, discectomy and fusion, TIA as a child, family history of premature coronary artery disease. Paroxysmal Afib with RVR. POD #9 sternal exploration with sternal debridement. POD #2 removal of table and partial resection of the manubrium as well as partial sternectomy by Dr. Sethi, right pectoralis major myocutaneous flap, left pectoralis major myocutaneous flap by Dr. Whittaker. The patient is seen in follow-up today 09/05/2020 at her bedside in the intensive care unit. The patient remians intubated with mechanical ventilator support. Sedation remains off, she is not moving her upper extremities but has minimal movement to her lower extremities, she is blinking her eyes appropriately with verbal stimuli, is tracking appropriately and is shaking her head appropriately to yes and no questions. Currently she shakes her head no when asked if having any pain. Her labs this morning showed a WBC count of 13.4 which is trending down from yesterday, hemoglobin 5.4, hematocrit 17.2, platelets 313, sodium 152, potassium 3.6, BUN 45, creatinine 1.20 and her ABG results showed a pH of 7.49, pCO2 35, pO2 150, HCO3 26, oxygen saturation 99.7 and base excess 2.8. 1 unit of PRBCs is transfusing for the hemoglobin of 5.4. Her T-max temperature in the last 24 hours was 101.2F, she remains on cefazolin for antibiotic coverage for positive MSSA to her sputum, blood and sternal wound cultures. Antibiotics are being managed by infectious disease. Most recent blood cultures from 09/01/2020 and 09/02/2020 show no growth after 48 and 72 hours. Sputum culture from 09/04/2020 shows no growth after 24 hours. The patient's blood pressure is currently 125/51 and she remains on norepinephrine drip at 3.6 mcg/m for blood pressure support. Vital high-protein to feeding infusing at goal rate of 54 mL per hour and is tolerating well. She continues on Lasix 40 mg IV daily managed by nephrology. Prevena dressing remains in place to her sternal incision with scant serosanguineous drainage. RAHEEM drains remain in place to her chest with scant serosanguineous drainage. Bedside telemetry showing sinus tachycardia heart rate 118 BPM. Objective - Vital Signs Vital signs: Vital Signs Temp 101.6 F H 09/05/20 08:00 Pulse 121 H 09/05/20 08:45 Resp 34 H 09/05/20 08:45 BP 123/56 09/05/20 08:45 Pulse Ox 98 09/05/20 08:45 Intake & Output 09/04/20 09/05/20 09/05/20 18:59 06:59 18:59 Intake Total 4478.445 2872 260.702 Output Total 1290 990 110 Balance 348.020 298 150.702 Weight 87.7 kg 90.2 kg Intake: IV 570 240 40 D5-0.45% NaCl with KCl 570 240 40 20Meq/l 1,000 ml @ 20 mls /hr IV .Q24H [facility] Rx#: [id number] Intake, IV Titration 236.020 166.702 Amount Norepinephrine 4 mg In 221.086 Sodium Chloride 0.9% 250 ml @ 0.05 MCG/KG/MIN 15. 926 mls/hr IV .[id number] [facility] Rx#:[id number] Norepinephrine 8 mg In 14.934 166.702 Sodium Chloride 0.9% 250 ml @ 0.05 MCG/KG/MIN 8. 485 mls/hr IV .Q24H [facility] Rx#:[id number] Tube Feeding 432 648 54 Blood Product 0 Rc As-1 Unit 0 [id number] Other 400 400 Output: Drainage 25 185 20 Bilateral Abdomen 25 185 20 Urine 1065 805 90 Stool 200 Other: Voiding Method Indwelling Catheter Indwelling Catheter ABP, PAP, CO, CI - Last Documented Arterial Blood Pressure 132/42 - Constitutional Constitutional Comment(s): The patient is awake and alert in bed in the intensive care unit. Shaking her head yes and no appropriate to verbal stimuli. Unable to move her upper extremities, minimal movement to her bilateral lower extremities. Remains intubated with mechanical ventilator support. General appearance: Present: no acute distress, obese - EENT Eyes: Present: normal appearance. Absent: scleral icterus ENT: Present: hearing grossly normal - Neck Details: Neck is supple, no JVD. - Respiratory Details: Lung sounds essentially clear throughout, diminished bilateral bases. No wheezes, rhonchi or crackles. Respirations are symmetrical and nonlabored with mechanical ventilator support. Current mechanical ventilator settings are as follows, assist control 20, TV 400, FiO2 40%, PEEP 5. Oxygen saturations on current mechanical ventilator settings 97%. ABG results this morning show a pH of 7.49, pCO2 35, pO2 150, HCO3 26, oxygen saturation 99.7 and base excess 2.8. - Cardiovascular Details: Regular rhythm and tachycardic rate. S1 and S2 present, negative for S3, gallop or murmur. Heart hugger is in place. Bedside telemetry showing sinus tachycardia heart rate 118 BPM. Generalized +1 edema. Knee-high ANGEL hose and sequential compression devices in place to her bilateral lower extremities. Right femoral triple-lumen catheter in place and functioning. Norepinephrine drip at 3.6 mics per minute. - Gastrointestinal Gastrointestinal Comment(s): Abdomen is soft, nondistended and nontender. Hypoactive bowel sounds present in all 4 abdominal quadrants. Fecal management system in place with liquid brown stool. OG tube in place with vital high-protein to feeding infusing at goal rate of 54 mL per hour with automatic water flushes. - Genitourinary Genitourinary Comment(s): Yu catheter for accurate I&O. Draining clear yellow urine. 425 mL output in the last 8 hours. - Integumentary Integumentary Comment(s): Skin is warm and dry. No clubbing or cyanosis is present. Prevena dressing in place to her sternal incision. Scant serous sanguinous drainage. Left lower extremity EVH site is clean, dry and approximated. No drainage or redness is present. Ecchymosis from her left ankle to her left thigh scattered. Soft to touch. - Neurologic Neurologic Comment(s): Open size with verbal stimuli, is tracking with her eyes. Shakes her head yes and no appropriately to questions. Minimal movement to her bilateral lower extremities. No movement to her upper extremities. - Musculoskeletal Musculoskeletal Comment(s): No movement to her bilateral upper extremities. Musculoskeletal: Present: generalized weakness - Psychiatric Psychiatric Comment(s): The patient is awake and alert. Unable to accurately assess her orientation at this time. - Allied health notes Allied health notes reviewed: nursing - Labs CBC & Chem 7: 09/05/20 04:30 09/05/20 04:00 Labs: Abnormal Lab Results - Last 24 Hours (Table) 08/23/20 09/02/20 09/03/20 Range/Units 00:16 18:52 13:25 WBC (3.8-10.6) k/uL RBC (3.80-5.40) m/uL Hgb (11.4-16.0) gm/dL Hct (34.0-46.0) % MCHC (31.0-37.0) g/dL RDW (11.5-15.5) % Neutrophils # (1.3-7.7) k/uL Eosinophils # (0-0.7) k/uL ABG pH (7.35-7.45) ABG pCO2 (35-45) mmHg ABG pO2 (83-108) mmHg ABG HCO3 (21-25) mmol/L ABG Total CO2 (19-24) mmol/L ABG O2 Saturation (94-97) % Sodium (137-145) mmol/L Potassium (3.5-5.1) mmol/L Chloride (98-107) mmol/L BUN (7-17) mg/dL Creatinine (0.52-1.04) mg/dL Glucose (74-99) mg/dL POC Glucose (mg/dL) (75-99) mg/dL Calcium (8.4-10.2) mg/dL Magnesium (1.6-2.3) mg/dL Alkaline Phosphatase (38-126) U/L Total Protein (6.3-8.2) g/dL Albumin (3.5-5.0) g/dL Aldolase 8.4 H (1.2-7.6) U/L Crossmatch See Detail See Detail 09/04/20 09/04/20 09/04/20 Range/Units 10:13 11:25 15:50 WBC (3.8-10.6) k/uL RBC (3.80-5.40) m/uL Hgb (11.4-16.0) gm/dL Hct (34.0-46.0) % MCHC (31.0-37.0) g/dL RDW (11.5-15.5) % Neutrophils # (1.3-7.7) k/uL Eosinophils # (0-0.7) k/uL ABG pH 7.48 H (7.35-7.45) ABG pCO2 34 L (35-45) mmHg ABG pO2 (83-108) mmHg ABG HCO3 26 H (21-25) mmol/L ABG Total CO2 27 H (19-24) mmol/L ABG O2 Saturation 99.0 H (94-97) % Sodium (137-145) mmol/L Potassium 3.4 L (3.5-5.1) mmol/L Chloride (98-107) mmol/L BUN (7-17) mg/dL Creatinine (0.52-1.04) mg/dL Glucose (74-99) mg/dL POC Glucose (mg/dL) 160 H (75-99) mg/dL Calcium (8.4-10.2) mg/dL Magnesium (1.6-2.3) mg/dL Alkaline Phosphatase (38-126) U/L Total Protein (6.3-8.2) g/dL Albumin (3.5-5.0) g/dL Aldolase (1.2-7.6) U/L Crossmatch 09/04/20 09/04/20 09/05/20 Range/Units 17:17 23:52 04:00 WBC 14.0 H (3.8-10.6) k/uL RBC 1.91 L (3.80-5.40) m/uL Hgb 5.5 L* D (11.4-16.0) gm/dL Hct 17.8 L* (34.0-46.0) % MCHC 30.7 L (31.0-37.0) g/dL RDW 16.8 H (11.5-15.5) % Neutrophils # 8.7 H (1.3-7.7) k/uL Eosinophils # 0.9 H (0-0.7) k/uL ABG pH (7.35-7.45) ABG pCO2 (35-45) mmHg ABG pO2 (83-108) mmHg ABG HCO3 (21-25) mmol/L ABG Total CO2 (19-24) mmol/L ABG O2 Saturation (94-97) % Sodium (137-145) mmol/L Potassium (3.5-5.1) mmol/L Chloride (98-107) mmol/L BUN (7-17) mg/dL Creatinine (0.52-1.04) mg/dL Glucose (74-99) mg/dL POC Glucose (mg/dL) 163 H 165 H (75-99) mg/dL Calcium (8.4-10.2) mg/dL Magnesium (1.6-2.3) mg/dL Alkaline Phosphatase (38-126) U/L Total Protein (6.3-8.2) g/dL Albumin (3.5-5.0) g/dL Aldolase (1.2-7.6) U/L Crossmatch 09/05/20 09/05/20 09/05/20 Range/Units 04:00 04:30 05:20 WBC 13.4 H (3.8-10.6) k/uL RBC 1.85 L (3.80-5.40) m/uL Hgb 5.4 L* (11.4-16.0) gm/dL Hct 17.2 L* (34.0-46.0) % MCHC (31.0-37.0) g/dL RDW 16.8 H (11.5-15.5) % Neutrophils # 8.3 H (1.3-7.7) k/uL Eosinophils # 0.9 H (0-0.7) k/uL ABG pH 7.49 H (7.35-7.45) ABG pCO2 (35-45) mmHg ABG pO2 150 H (83-108) mmHg ABG HCO3 26 H (21-25) mmol/L ABG Total CO2 27 H (19-24) mmol/L ABG O2 Saturation 99.7 H (94-97) % Sodium 152 H (137-145) mmol/L Potassium (3.5-5.1) mmol/L Chloride 120 H (98-107) mmol/L BUN 45 H (7-17) mg/dL Creatinine 1.20 H (0.52-1.04) mg/dL Glucose 150 H (74-99) mg/dL POC Glucose (mg/dL) (75-99) mg/dL Calcium 8.2 L (8.4-10.2) mg/dL Magnesium 2.7 H (1.6-2.3) mg/dL Alkaline Phosphatase 170 H (38-126) U/L Total Protein 6.1 L (6.3-8.2) g/dL Albumin 2.4 L (3.5-5.0) g/dL Aldolase (1.2-7.6) U/L Crossmatch 09/05/20 Range/Units 05:22 WBC (3.8-10.6) k/uL RBC (3.80-5.40) m/uL Hgb (11.4-16.0) gm/dL Hct (34.0-46.0) % MCHC (31.0-37.0) g/dL RDW (11.5-15.5) % Neutrophils # (1.3-7.7) k/uL Eosinophils # (0-0.7) k/uL ABG pH (7.35-7.45) ABG pCO2 (35-45) mmHg ABG pO2 (83-108) mmHg ABG HCO3 (21-25) mmol/L ABG Total CO2 (19-24) mmol/L ABG O2 Saturation (94-97) % Sodium (137-145) mmol/L Potassium (3.5-5.1) mmol/L Chloride (98-107) mmol/L BUN (7-17) mg/dL Creatinine (0.52-1.04) mg/dL Glucose (74-99) mg/dL POC Glucose (mg/dL) 169 H (75-99) mg/dL Calcium (8.4-10.2) mg/dL Magnesium (1.6-2.3) mg/dL Alkaline Phosphatase (38-126) U/L Total Protein (6.3-8.2) g/dL Albumin (3.5-5.0) g/dL Aldolase (1.2-7.6) U/L Crossmatch Last 24 Hours (Table) 08/30/20 03:56 Blood Culture - Final Blood No Growth after 144 hours 09/03/20 18:02 Blood Culture - Preliminary Blood No Growth after 24 hours 09/02/20 18:52 Blood Culture - Preliminary Blood No Growth after 48 hours 09/01/20 14:40 Blood Culture - Preliminary Blood No Growth after 72 hours 09/04/20 00:25 Gram Stain - Preliminary Sputum Sputum Culture - Preliminary - Imaging and Cardiology Chest x-ray: report reviewed, image reviewed Assessment and Plan Assessment: 1. Shortness of breath, acute diastolic heart failure, EF 55-60% on current TTE, bilateral pleural effusions 2. Lactic acidosis, septic shock, blood cultures positive for MSSA 3. Hypercapnic, hypoxic respiratory failure requiring BiPAP, with subsequent intubation and mechanical ventilation 4. Open sternal wound, surgically created, deep sternal wound infection with MSSA, S/P surgical exploration and debridement with daily dressing changes 5. Leukocytosis with bandemia, bandemia resolved, WBC trending down 6. Acute kidney injury, metabolic acidosis, metabolic acidosis resolved, kidney function returning to normal after receiving dialysis 7. Acute hyperkalemia, resolved 8. Acute transaminitis secondary to hypoperfusion, resolving 9. History of hypertension, hypotensive this admission requiring vasopressors, currently off vasopressors 10. Acute anemia, post transfusion PRBCs, on 11. Coronary artery disease with left main stenosis status post 2 vessel CABG on 08/10/2020 with expected postoperative acute blood loss anemia, hypotension, and urinary retention as well as candidal stomatititus 12. Hyponatremia, resolved 13. Pulmonary fibrosis, asthma 14. Hyperlipidemia, treated 15. Previous tobacco dependence 16. Obesity 17. Paroxysmal afib w/ RVR, atrial flutter, status post exclusion of the left atrial appendage using a 35 mm AtriClip, currently sinus rhythm 18. 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 Ventilator management per pulmonary medicine. Weaning trial management per pulmonary critical care medicine. 2. Nephrology following, avoid nephrotoxins, diuretic management per nephrology recommendations. Currently on Lasix 40 mg IV daily. 3. Infectious disease following, blood cultures from 09/01/2020 and 09/02/2020 currently show no growth. Remains on antibiotic coverage of cefazolin. Previous blood, sputum and sternal wound cultures showed positive for MSSA. T- max temperature in the last 24 hours was 101.2F. 4. Continue aspirin, Plavix, beta sisi. Atorvastatin 40 mg by mouth daily was restarted yesterday 09/04/2020 as her liver enzymes have normalized. 5. No anticoagulation at this time. 6. Will continue to monitor daily labs and chest x-rays, ABGs. 7. 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 8. GI/DVT prophylaxis. 9. Continue tube feeding for nutrition, per dietitian recommendations. Currently at goal rate of 54 mL per hour vital high-protein. 10. Patient's and daughter updated on her care per phone. 11. Replace electrolytes per protocol. Transfuse 1 unit of PRBCs for hemoglobin of 5.4 this morning. 12. Wean norepinephrine drip as tolerated to maintain a systolic blood pressure greater than 100 mmHg or a map greater than or equal to 70 mmHg. 13. Continue per Prevena dressing to her sternal incision. Continue to monitor RAHEEM drainage. 14. More recommendations to follow based on patient's clinical course. Time with Patient: Greater than 30
[2020-09-05] MEDS ORDERED: CEFEPIME 2 GM in SODIUM CHLORIDE 0.9% 100 ML IVPB ONE (09:45)
[2020-09-05] MEDS: DAPTOmycin 500 MG in SODIUM CHLORIDE 0.9% 50 ML IVPB SCH (10:16)
--- NOTE | 2020-09-05 10:29 | P.PN ---
Subjective Progress Note Date: 09/05/20 HISTORY OF PRESENT ILLNESS This is a 75-year-old female patient of Dr. Rich Avila, Dr. Sloan and Dr. Guadalupe. She has a past medical history significant for hypertension, hype rlipidemia, pulmonary fibrosis, asthma, obesity, remote history of tobacco dependence with smoking 32 years ago, osteoarthritis, cervical stenosis post anterior cervical decompression, discectomy and fusion, TIA as a child at age 11 and family history of premature coronary artery disease with her father being diagnosed in his early 50s. Recently, the patient has been experiencing episodes of shortness of breath over the past 6 months with just minimal activity. She also complained of some lower extremity swelling which did resolve with some diuresis. she underwent a stress test which showed anterior wall ischemia with small reversible defect. a 2-D echocardiogram which showed mild aortic valve insufficiency, mild mitral valve regurgitation, mild tricuspid valve regurgitation and left ventricular function to be normal with an ejection fraction of 55%. Subsequently she underwent an elective heart catheterization on 07/27/2020 which demonstrated a left main stenosis with QING with a calculation of 2.6 mm, a 40% stenosis to her mid left anterior descending coronary artery and a 30% stenosis to her right coronary artery. Due to the patient's symptoms and findings on her heart catheterization of left main stenosis a consult was placed to Dr. Sethi from cardiothoracic surgery for further evaluation and treatment recommendations. During her preoperative workup her serum sodium level was found to be 120 and was admitted prior to surgery for treatment of hyponatremia. Last admission On 08/06/2020-08/19/20 the patient was admitted to the hospital for treatment of her hyponatremia, and once her hyponatremia was resolved on 08/10/2020, asubsequently taken to the operating room where Dr. Sethi performed a double vessel coronary artery bypass grafting surgery using the left internal mammary artery to left anterior setting coronary artery, a reverse greater saphenous vein graft from the aorta to the first obtuse marginal coronary artery, endoscopic harvesting of the left greater saphenous vein from the groin Upon completion of the surgery the patient was transferred to the intensive care unit where she was recovered, monitored hemodynamically and where she progressed cardiac rehabilitation phase Her oxygen was titrated down, she continued to work with physical/occupational therapy and cardiac rehabilitation, she was tolerating an oral diet, her pain was well controlled without narcotics and she was ready to be discharged home with [facility] care on postoperative day #9. Did not require home O2 on last admission however she required new medication changes including diuretics during that last admission. Patient comes in in worsening shortness of breath anasarca, no chest pain, has BARKER, edma without leg pain new medications from last visit was compliant, requiring lipitor 75bid, tolvaptan. meotprolol 75 bid plavix, lasix 40 mg daily losartain 25 asa 325, ferrous sulfate and fluconazole. patient comes in now for CHF, anarsarc ely pleural effusion, consult with dr Sethi. and cardiology, if okay will be cardiothoracic surgeon can also perform the thoracentesis, however with hypoxemia, also have requested Dr. Gamboa's services. Patient has a hemoglobin of 7.0 on and 3, platelet count of 305, hemoglobin right to admission was 8.0 denies any Hemoccult stools, creatinine was 1.60 from a previous of 0.9 blood pressure is in the low 90s systolic, pulse ox, 90 on 4 L nasal cannula, patient was not discharged with home O2 during her last admission 08/24: A-Team was called for mental status changes. Patient was found to have a blood pressure 99/65, heart rate of 85 and pulse ox of 96% on a nonrebreather with respiratory rate of 32. Patient was transferred to the ICU. She was started on vancomycin and cefepime. Patient has been seen by cardiology with plan to continue vasopressor support, patient may need pleurocentesis. Stat echocardiogram was done to rule out pericardial effusion or tamponade. Patient has been seen by nephrology for acute kidney injury secondary to ATN secondary to hypotension and cardiorenal syndrome. Patient is currently on bicarb drip, status post Lasix 80 mg IV once. Renal replacement therapy to be initiated immediately. Vascular consult in place for a dialysis catheter placement and start hemodialysis today with second treatment tomorrow. Sternal wound was producing thick yellowish brown fluid, was opened approximately 2 cm and deep culture was taken, packed and covered with 4 x 4 dressing. She is requiring vasopressors. She is hypothermic and warming blanket is in place.Patient had minimal output yesterday and none today. She is status post 2.5 L of fluids. 08/25 patient was examined in the ICU. She was able to maintain oxygenation on BiPAP overnight switch to high flow 15 m this morning. Patient did have episodes of agitation last night and was started on Seroquel. She did receive a dose of Seroquel prior to admission and was found to be resting comfortably. Patient is off pressors and bicarbonate drip and metabolic acidosis seemed to have cleared off. On evaluation of patient's lab, WBC is 14.3, hemoglobin 6.5 platelet 208 ABG this morning has a pH of 7.47 CO2 74. Bicarb 29. Sodium has improved to 126 chloride 96 BUN 43 creatinine 2.79 lactic acid has improved to 2.9 calcium 7 liver enzymes elevated AST at 2874 ALT 1469 alkaline phosphatase 192 CRP 356 BNP 13,000 UA does suggest some infection with WBC of 88 hyaline casts 33 protein 2+ urine blood trace nitrite negative leukocyte Estrace negative. Wound cultures positive for presumptive staph aureus. Patient's blood culture from yesterday are positive with presumptive staph aureus. Repeat blood cultures ordered. Patient received 1 unit of PRBCs for low hemoglobin. Urine output has improved to 20-40 mL's per hour. Patient did receive a dose of DDAVP for hyponatremia. Normal saline is running at 50 mL per hour. Did receive hemodialysis today with 2 L ultrafiltration. Patient was also noted to be in A. fib with RVR intermittently and her dose of Lopressor was increased to 25 mg every 8 hours. Continue daptomycin and cefepime for antibiotic coverage. Monitor patient's for QTC prolongation well on Seroquel. Patient has significant dehiscence of wound and may need I&D 08/26: She was intubated and placed on mechanical ventilation overnight with pulse ox of 96%, tidal volume 450, FiO2 50, PEEP of 5. Temperature max last evening was 101.2. Heart rate 82, blood pressure 120/53. WBC 9.6, hemoglobin 10.8, platelet count 159. Sodium 134, potassium 4.7, chloride 100, CO2 25, BUN 14 creatinine 1.83. Blood sugars running between 100 2753. Total bilirubin 3.3, AST 1067, ALT 993, alkaline phosphatase 251. Magnesium 2.1. Patient is on vasopressors. residential monitor atrial flutter alternating with sinus rhythm. Patient is also on propofol and Seroquel discontinued. Thoracic surgery is possible taking her to or for I&D and considering wound VAC. Patient is on Plavix. Echocardiogram reveals normal LV function and mild aortic stenosis. Patient is currently on daptomycin and cefepime per Dr. Mcintyre. Urine output remains low at 15-20 mL per hour. Should she is scheduled for third hemodialysis treatment today. Patient is scheduled for Lasix 80 mg IV this afternoon. 08/27 she remains in the ICU, intubated and mechanically ventilated. Patient is going to the OR for debridement today. Patient remains intubated on 50% FiO2 and PEEP of 5, assist control rate of 20volume 450. Continues to require Levophed at 11mcg/ hr . Blood clots and culture positive for MSSA. Urine output is 50-60 mL per hour. Patient continues to be on sedation from propofol at 50 max per KG permanent. IV fluids at KVO. Patient continues to have good urine output after a dose of 80 mg of IV Lasix today. Vision tolerated 2.5 L ultrafiltration yesterday and is started on hemodialysis on August 24. No holiday sedation today. Plan to continue Lasix 80 IV once daily and holding hemodialysis. Anticoagulation held for debridement. 08/28 patient remains in the ICU. Did have sternal Exploration and debridement yesterday remains sedated on propofol. Patient continues to have high temp of 101.6, to 233 tachycardic 111 blood pressure 106/51 oxygen saturation 95% on 50% FiO2. Labs suggest a leukocytosis of 24.3 hemoglobin stable at 10.7 platelet count has dipped dropped to 78, he really suggest a pH of 7.53 pCO2 30 PaO2 57, chloride of 110 potassium 3.5 and anion gap of 6 BUN 46 creatinine 0.9 calcium 7.8 ALT 3:15 alkaline phosphatase 312 AST 112 blood cultures from 08/26 positive for staph aureus. Urine output 1.2 L in 24 hours Repeat blood cultures sent today. Patient continues to be normal sinus rhythm not currently on any anticoagulation at the possibility of going for another debridement. Patient's continues to be on levo fed and still stays intubated. Continue IV Lasix. Patient initiated on IV Lasix 08/29: Patient remain in the ICU, remain on mechanical ventilation, sternal exploration and debridement was done and still have packing area within open wound at this point. Oxygenation is better patient is not 3 to be off vent at this point. Her urine output has been good and hemodynamically stable. 08/30: Patient still on mechanical ventilation, his sternum 1 and was changed today still have significant amount of infection and pus was packed still open. Patient remain on nafcillin and Moni mycin. Still having positive blood culture. 08/31: Patient is more awake today doing trial of weaning parameter try to get patient off the respirator, her incision and infection along the sternum is no change still have packing on still on IV antibiotics. Hemodynamically is more stable. 09/01: Patient evaluated in the ICU, continues on mechanical ventilation. Wound packing was removed yesterday, purulence was noted on the packing, deep near the heart and purulence around the heart. She continues on IV clindamycin and nafcillin. Patient was taken off sedation yesterday for a trial of weaning, but she became hypertensive and tachypneic so she is placed back on sedation. 09/02: Patient remains intubated and on mechanical ventilation with tidal volume 400, FiO2 of 50% and PEEP of 5. Patient has been off sedation since Monday. She is receiving OG tube feedings. She appears to be opening meaning her eyes and can shake her head. Otherwise not moving extremities. She has a wound VAC in place to the sternal wound. Wound cultures and blood culture positive for MSSA. She is scheduled for sternal wound excision and debridement with flap reconstruction and graft tomorrow with Dr. Whittaker. Repeat blood work reveals WBC of 13.6, hemoglobin 8.5. BUN 66 and creatinine 1.62, potassium 3.2 and has been replaced, blood sugars running between 107 and 132. Because renal functioning is worsening, nephrology has recommended holding nafcillin. Repeat chest x-ray reveals correlate for pneumonia, edema, ARDS. 09/03: She remains in the intensive care unit intubated and on mechanical ventilation with tidal volume 400, FiO2 40, PEEP of 5. Patient is awake with eyes open. She nodded her head no to having pain. She had a temperature this morning of 101.6 at 6 AM. Antibiotics are currently in the form of Kefzol. Repeat chest x-ray was done this morning and report is pending. Patient has been seen by neurology and doubt critical illness neuropathy. CAT scan of the brain and cervical spine done that showed no acute fracture or dislocation in the cervical spine. No acute intracranial hemorrhage, mass effect or midline shift. Ongoing airspace disease. Cardiology has recommended reinitiating statin. Temperature max 101.6, heart rate 101, blood pressure 117/52, pulse ox 95%. Repeat blood work reveals WBC 15.4, hemoglobin 8.3, platelet count 243. Sodium 149, potassium 2.8, chloride 111, CO2 28, BUN 66 and creatinine 1.49. Total bilirubin 2.4, AST 43, ALT 33 and alkaline phosphatase 260. All previous blood cultures have been positive for staph aureus MSSA. A repeat blood culture on August 2029 showing no growth at 24 hours. 09/04: Yesterday, patient underwent excision of sternal wound, partial sternotomy and pectoralis flap procedure. This morning, patient had new lines done by pulmonary medicine. Dr. Mcintyre has recommended continuing Kefzol and repeat blood cultures are in progress. Repeat chest x-ray reveals rotated exam, findings similar to prior, correlate for edema, pneumonia, ARDS. Cardiothoracic surgeryhas ordered a consult with Dr. Yuan. He has evaluated patient for global weakness and does not think she has new cervical spine issues that would cause her global weakness.patient continues to have fever with temperature maximum 102.2, tachycardic in the low 100s, respiratory rate 30, blood pressure 103/60, pulse ox 98%. She remains intubated and on mechanical ventilation with tidal volume 400, FiO2 50, PEEP of 5. WBC 17.5, hemoglobin 7.2, platelet count 328. Sodium 149, potassium 3.8, chloride 115, CO2 26, BUN 59 and creatinine 1.37. Blood sugars running 129-144. Magnesium 2.6. Total bilirubin 2.0, AST 39, alkaline phosphatase 197, ALT 19.. sputum culture has been obtained. Most recent blood culture from September 02 showing no growth at 24 hours and blood culture from September 01 is no growth at 48 hours. Patient is currently on very minimal sedation. 09/05: Patient remains in the ICU, intubated and on mechanical ventilation with tidal volume 400, FI02 40% and peep 5. Patient continues to run fevers. Dr. Mcintyre has changed antibiotics to cefepime and daptomycin. Blood cultures dated September 01, , are showing no growth. Sputum culture is in process. residential monitor sinus tachycardia. Heart rate has been running between 108 and 121, respiratory rate 31, blood pressure 90/32, pulse ox 98%. She remains on low dose norepinephrine. Patient is off sedation with eyes open. She is not moving extremities. She has been evaluated by orthopedic spine and spinal etiology has essentially been ruled out. Patient is also been evaluated by neurology and critical care neuropathy has also been essentially ruled out. Patient stabilized, hopefully a MRI can be performed. WBC 13.4, hemoglobin 5.4 and this was rechecked, platelet count 313, sodium 152, potassium 3.6, BUN 45 and creatinine 1.2. Patient is receiving 1 unit of packed RBCs. Nephrology is continuing IV Lasix 40 mg daily. Patient is on PEG tube feedings and tolerating. REVIEW OF SYSTEMS Unable to obtain due to mental status change/intubation. PHYSICAL EXAMINATION Gen: This is a 75-year-old female. Patient is resting in ICU bed and appears to be comfortable. HEENT: Head is atraumatic, normocephalic. Pupils equal, round. Sclerae is anicteric. Patient intubated and on mechanical ventilation. NECK: Supple. No JVD. No lymphadenopathy. LUNGS: Diminished. No wheezes or rhonchi. No intercostal retractions. HEART: Regular rate and rhythm. 2/6 systolic murmur. Dressing to sternal wound. ABDOMEN: Soft. Bowel sounds are present. No masses. No tenderness. EXTREMITIES: 2+ bilat pitting edema. No calf tenderness. NEUROLOGICAL: Patient resting comfortably in bed, opens eyes. ASSESSMENT AND PLAN 1. Acute diastolic heart failure, (POA) EF 55%, mild AI and mild MR and mild TR, also complicated by severe protein calorie malnutrition, Cardiology consult appreciated. Continue Lasix 40 mg IV daily managed by nephrology. 2. Acute hypoxemic respiratory failure. (POA) Patient has underlying pulmonary hypertension as well, consult with coronary. Patient is intubated and on mechanical ventilation. Pulmonary medicine is managing. 3. Acute kidney injury secondary to ATN secondary to hypotension and cardiorenal syndrome. (POA) Patient is status post dialysis catheter placement, hemodialysis. Patient is followed closely by nephrology. 4. Hyperkalemia secondary to potassium supplementation, losartan and acute kidney injury as well as severe acidosis. (POA) Consult with nephrology appre ciated. Continue medical management. 5. Metabolic acidosis secondary to acute kidney injury. (POA) 6. Metabolic encephalopathy secondary to acute kidney injury, acute heart failure, acute respiratory failure, metabolic acidosis and hyperkalemia. (POA) 7. Sepsis with septic shock with multiorgan failure with metabolic encephalopathy, acute kidney injury, acute heart failure, acute respiratory failure, MSSA bacteremia. (POA) status post sternal exploration and sternal debridement on August 27, Patient is on low-dose vasopressors. 8. Sepsis with sternal wound dehiscence. (POA) Status post sternal exploration and sternal debridement on 08/27 followed by excision of sternal wound, partial sternotomy and pectoralis flap procedure on 09/03. Infectious disease consult appreciated. Antibiotics have been transitioned to cefepime and daptomycin. 9. Acute blood loss anemia, postop, status post transfusion of 3 units of packed RBCs. Continue to monitor. Patient is scheduled for 1 unit of packed RBCs today. 10. Hyponatremia. Continue to monitor. 11. CAD, with prior CABG performed on 08/10/2020, two-vessel, involving HOLLAND to LAD, and reverse greater saphenous vein to obtuse marginal coronary artery. Continue aspirin 325 mg daily, Plavix 75 mg daily, Toprol all 75 mg twice a day, 12. Severe protein calorie malnutrition, with anasarca and hypotension. 13. History of pulmonary fibrosis. Continue duo nebs and albuterol 14. Asthma, mild intermittent. Continue ipratropium albuterol nebulizers 15. Hyperlipidemia. Continue statin daily 16. Hypertension. Currently hypotensive 17. GI prophylaxis. Pantoprazole 18. Critical care neuropathy essentially ruled out by and neurology. 19. DVT prophylaxis: SCDs 20. Blood sugar management in a nondiabetic. insulin scale every 6 hours. 21. Acute transaminitis secondary to hypoperfusion. Prognosis guarded DISCHARGE PLAN TBD. Impression and plan of care have been directed as dictated by the signing physician. Monica Fragoso nurse practitioner acting as scribe for signing physician. Objective - Vital Signs Vital signs: Vital Signs Temp 101.6 F H 09/05/20 08:00 Pulse 121 H 09/05/20 09:00 Resp 33 H 09/05/20 09:00 BP 123/56 09/05/20 08:45 Pulse Ox 98 09/05/20 09:00 Intake & Output 09/04/20 09/05/20 09/05/20 18:59 06:59 18:59 Intake Total 0984.158 4533 393.894 Output Total 1290 990 170 Balance 348.020 298 223.894 Weight 87.7 kg 90.2 kg Intake: IV 570 240 110 D5-0.45% NaCl with KCl 570 240 40 20Meq/l 1,000 ml @ 20 mls /hr IV .Q24H [facility]ORIBIO Rx#: [id number] Dextrose 5% in Water 1, 20 000 ml @ 20 mls/hr IV . Q24H [facility] Rx#:[id number] ceFAZolin 2 gm In Sodium 50 Chloride 0.9% 50 ml @ 100 mls/hr IVPB Q8HR [facility] Rx# :[id number] Intake, IV Titration 236.020 175.894 Amount Norepinephrine 4 mg In 221.086 Sodium Chloride 0.9% 250 ml @ 0.05 MCG/KG/MIN 15. 926 mls/hr IV .[id number] [facility]IB[facility] Rx#:[id number] Norepinephrine 8 mg In 14.934 175.894 Sodium Chloride 0.9% 250 ml @ 0.05 MCG/KG/MIN 8. 485 mls/hr IV .Q24H [facility]IB[facility] Rx#:[id number] Tube Feeding 432 648 108 Blood Product 0 Rc As-1 Unit 0 [id number] Other 400 400 Output: Drainage 25 185 20 Bilateral Abdomen 25 185 20 Urine 1065 805 150 Stool 200 Other: Voiding Method Indwelling Catheter Indwelling Catheter ABP, PAP, CO, CI - Last Documented Arterial Blood Pressure 121/40 - Labs CBC & Chem 7: 09/05/20 04:30 09/05/20 04:00 Labs: Abnormal Lab Results - Last 24 Hours (Table) 08/23/20 09/02/20 09/03/20 Range/Units 00:16 18:52 13:25 WBC (3.8-10.6) k/uL RBC (3.80-5.40) m/uL Hgb (11.4-16.0) gm/dL Hct (34.0-46.0) % MCHC (31.0-37.0) g/dL RDW (11.5-15.5) % Neutrophils # (1.3-7.7) k/uL Eosinophils # (0-0.7) k/uL ABG pH (7.35-7.45) ABG pCO2 (35-45) mmHg ABG pO2 (83-108) mmHg ABG HCO3 (21-25) mmol/L ABG Total CO2 (19-24) mmol/L ABG O2 Saturation (94-97) % Sodium (137-145) mmol/L Potassium (3.5-5.1) mmol/L Chloride (98-107) mmol/L BUN (7-17) mg/dL Creatinine (0.52-1.04) mg/dL Glucose (74-99) mg/dL POC Glucose (mg/dL) (75-99) mg/dL Calcium (8.4-10.2) mg/dL Magnesium (1.6-2.3) mg/dL Alkaline Phosphatase (38-126) U/L Total Protein (6.3-8.2) g/dL Albumin (3.5-5.0) g/dL Aldolase 8.4 H (1.2-7.6) U/L Crossmatch See Detail See Detail 09/04/20 09/04/20 09/04/20 Range/Units 10:13 11:25 15:50 WBC (3.8-10.6) k/uL RBC (3.80-5.40) m/uL Hgb (11.4-16.0) gm/dL Hct (34.0-46.0) % MCHC (31.0-37.0) g/dL RDW (11.5-15.5) % Neutrophils # (1.3-7.7) k/uL Eosinophils # (0-0.7) k/uL ABG pH 7.48 H (7.35-7.45) ABG pCO2 34 L (35-45) mmHg ABG pO2 (83-108) mmHg ABG HCO3 26 H (21-25) mmol/L ABG Total CO2 27 H (19-24) mmol/L ABG O2 Saturation 99.0 H (94-97) % Sodium (137-145) mmol/L Potassium 3.4 L (3.5-5.1) mmol/L Chloride (98-107) mmol/L BUN (7-17) mg/dL Creatinine (0.52-1.04) mg/dL Glucose (74-99) mg/dL POC Glucose (mg/dL) 160 H (75-99) mg/dL Calcium (8.4-10.2) mg/dL Magnesium (1.6-2.3) mg/dL Alkaline Phosphatase (38-126) U/L Total Protein (6.3-8.2) g/dL Albumin (3.5-5.0) g/dL Aldolase (1.2-7.6) U/L Crossmatch 09/04/20 09/04/20 09/05/20 Range/Units 17:17 23:52 04:00 WBC 14.0 H (3.8-10.6) k/uL RBC 1.91 L (3.80-5.40) m/uL Hgb 5.5 L* D (11.4-16.0) gm/dL Hct 17.8 L* (34.0-46.0) % MCHC 30.7 L (31.0-37.0) g/dL RDW 16.8 H (11.5-15.5) % Neutrophils # 8.7 H (1.3-7.7) k/uL Eosinophils # 0.9 H (0-0.7) k/uL ABG pH (7.35-7.45) ABG pCO2 (35-45) mmHg ABG pO2 (83-108) mmHg ABG HCO3 (21-25) mmol/L ABG Total CO2 (19-24) mmol/L ABG O2 Saturation (94-97) % Sodium (137-145) mmol/L Potassium (3.5-5.1) mmol/L Chloride (98-107) mmol/L BUN (7-17) mg/dL Creatinine (0.52-1.04) mg/dL Glucose (74-99) mg/dL POC Glucose (mg/dL) 163 H 165 H (75-99) mg/dL Calcium (8.4-10.2) mg/dL Magnesium (1.6-2.3) mg/dL Alkaline Phosphatase (38-126) U/L Total Protein (6.3-8.2) g/dL Albumin (3.5-5.0) g/dL Aldolase (1.2-7.6) U/L Crossmatch 09/05/20 09/05/20 09/05/20 Range/Units 04:00 04:30 05:20 WBC 13.4 H (3.8-10.6) k/uL RBC 1.85 L (3.80-5.40) m/uL Hgb 5.4 L* (11.4-16.0) gm/dL Hct 17.2 L* (34.0-46.0) % MCHC (31.0-37.0) g/dL RDW 16.8 H (11.5-15.5) % Neutrophils # 8.3 H (1.3-7.7) k/uL Eosinophils # 0.9 H (0-0.7) k/uL ABG pH 7.49 H (7.35-7.45) ABG pCO2 (35-45) mmHg ABG pO2 150 H (83-108) mmHg ABG HCO3 26 H (21-25) mmol/L ABG Total CO2 27 H (19-24) mmol/L ABG O2 Saturation 99.7 H (94-97) % Sodium 152 H (137-145) mmol/L Potassium (3.5-5.1) mmol/L Chloride 120 H (98-107) mmol/L BUN 45 H (7-17) mg/dL Creatinine 1.20 H (0.52-1.04) mg/dL Glucose 150 H (74-99) mg/dL POC Glucose (mg/dL) (75-99) mg/dL Calcium 8.2 L (8.4-10.2) mg/dL Magnesium 2.7 H (1.6-2.3) mg/dL Alkaline Phosphatase 170 H (38-126) U/L Total Protein 6.1 L (6.3-8.2) g/dL Albumin 2.4 L (3.5-5.0) g/dL Aldolase (1.2-7.6) U/L Crossmatch 09/05/20 Range/Units 05:22 WBC (3.8-10.6) k/uL RBC (3.80-5.40) m/uL Hgb (11.4-16.0) gm/dL Hct (34.0-46.0) % MCHC (31.0-37.0) g/dL RDW (11.5-15.5) % Neutrophils # (1.3-7.7) k/uL Eosinophils # (0-0.7) k/uL ABG pH (7.35-7.45) ABG pCO2 (35-45) mmHg ABG pO2 (83-108) mmHg ABG HCO3 (21-25) mmol/L ABG Total CO2 (19-24) mmol/L ABG O2 Saturation (94-97) % Sodium (137-145) mmol/L Potassium (3.5-5.1) mmol/L Chloride (98-107) mmol/L BUN (7-17) mg/dL Creatinine (0.52-1.04) mg/dL Glucose (74-99) mg/dL POC Glucose (mg/dL) 169 H (75-99) mg/dL Calcium (8.4-10.2) mg/dL Magnesium (1.6-2.3) mg/dL Alkaline Phosphatase (38-126) U/L Total Protein (6.3-8.2) g/dL Albumin (3.5-5.0) g/dL Aldolase (1.2-7.6) U/L Crossmatch Microbiology - Last 24 Hours (Table) 09/04/20 00:25 Gram Stain - Preliminary Sputum Sputum Culture - Preliminary 08/30/20 03:56 Blood Culture - Final Blood No Growth after 144 hours 09/03/20 18:02 Blood Culture - Preliminary Blood No Growth after 24 hours 09/02/20 18:52 Blood Culture - Preliminary Blood No Growth after 48 hours 09/01/20 14:40 Blood Culture - Preliminary Blood No Growth after 72 hours
[2020-09-05] MEDS: IPRATROPIUM-ALBUTEROL 3 ML NEB INHALATION SCH ×4 (11:09→23:58)
[2020-09-05] MEDS: FUROSEMIDE 10 MG/ML 4 ML VIAL IV SCH (11:46)
[2020-09-05] MEDS: ASCORBIC ACID 500 MG TAB PO SCH (11:47)
[2020-09-05] MEDS: FERROUS SULFATE ORAL ELIXIR 300 MG/5 ML CUP PO SCH (11:47)
[2020-09-05] MEDS: IOPAMIDOL CONTRAST (ORAL USE) VIAL PO PRN ×2 (11:50→13:12)
[2020-09-05 11:54] LABS: Glucose,Whole Blood 140 mg/dL (75-99)
--- NOTE | 2020-09-05 12:58 | PN ---
PROGRESS NOTE DATE OF SERVICE: 09/05/2020 REASON FOR FOLLOWUP: 1. 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 2. Persistent fever. INTERVAL HISTORY: The patient is currently running a fever with a temperature of 101.3 degrees Fahrenheit. The patient also had a drop in hemoglobin from 5.5, to 5.4. The patient remains to be intubated on the vent. The patient is hemodynamically stable on pressor support. No diarrhea has been reported. PHYSICAL EXAMINATION: Blood pressure 115/40 with a pulse of 108. Temperature of 101.6. She is 98% on 40% FiO2. General description is an elderly female lying in bed in no distress. Respiratory system: Unlabored breathing. Clear to auscultation anteriorly. Heart S1, S2. Regular rate and rhythm. Abdomen soft. No tenderness. LAB: Hemoglobin 5.4, white count 13.4 with a BUN of 45, creatinine 1.20. 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 Culture repeat has been negative with persistent fever is concerning, especially with a drop in hemoglobin. Concern for possible retroperitoneal hematoma or non infectious etiology. A CT of abdomen and pelvis without IV contrast will be done because of her renal failure. Antibiotic has been adjusted to daptomycin, cefepime and continue supportive care. MMODL / IJN: [id number] /
--- NOTE | 2020-09-05 13:11 | P.PN ---
Subjective Progress Note Date: 09/05/20 Patient was seen for a follow-up via Tele-neurology. Patient is still intubated. Patient continues to be encephalopathic. Does open her eyes, turns her gaze towards calling, but follows minimal commands. Patient did not nod yes or no for any headache, and neck pain or any pain in the body. Patient has intermittent head movement [id number], and at that she is getting some bicycling type of rhythmic movement of her arm and leg, one or other side. Per nurse, patient has received fentanyl 25 g 1 hour before. Patient underwent pressure support trial and within 1 hour, she started breathing at 40, with shallow breathing, could not tolerate and was put back on the ventilator. Patient is off sedation for over 24 hours. Otherwise looks comfortable. Objective - Vital Signs Vital signs: Vital Signs Temp 101.5 F H 09/05/20 10:59 Pulse 110 H 09/05/20 11:20 Resp 28 H 09/05/20 11:00 BP 97/34 09/05/20 10:59 Pulse Ox 97 09/05/20 11:00 Intake & Output 09/04/20 09/05/20 09/05/20 18:59 06:59 18:59 Intake Total 7011.938 0612 947.894 Output Total 1290 990 270 Balance 348.020 298 677.894 Weight 87.7 kg 90.2 kg Intake: IV 570 240 300 Cefepime 2 gm In Sodium 100 Chloride 0.9% 100 ml @ 200 mls/hr IVPB ONCE ONE Rx#:[id number] D5-0.45% NaCl with KCl 570 240 40 20Meq/l 1,000 ml @ 20 mls /hr IV .Q24H TORIBIO Rx#: [id number] DAPTOmycin 500 mg In 50 Sodium Chloride 0.9% 50 ml @ 100 mls/hr IVPB Q24HR [facility]IO Rx#:[id number] Dextrose 5% in Water 1, 60 000 ml @ 20 mls/hr IV . Q24H [facility]OR[facility]IO Rx#:[id number] ceFAZolin 2 gm In Sodium 50 Chloride 0.9% 50 ml @ 100 mls/hr IVPB Q8HR [facility]IO Rx# :[id number] Intake, IV Titration 236.020 175.894 Amount Norepinephrine 4 mg In 221.086 Sodium Chloride 0.9% 250 ml @ 0.05 MCG/KG/MIN 15. 926 mls/hr IV .[id number] [facility]ORIBIO Rx#:[id number] Norepinephrine 8 mg In 14.934 175.894 Sodium Chloride 0.9% 250 ml @ 0.05 MCG/KG/MIN 8. 485 mls/hr IV .Q24H TORIBIO Rx#:[id number] Tube Feeding 432 648 162 Blood Product 0 310 Rc As-1 Unit 0 310 [id number] Other 400 400 Output: Drainage 25 185 20 Bilateral Abdomen 25 185 20 Urine 1065 805 250 Stool 200 Other: Voiding Method Indwelling Catheter Indwelling Catheter Indwelling Catheter ABP, PAP, CO, CI - Last Documented Arterial Blood Pressure 103/35 - Exam On examination patient is awake, opens her eyes, , sometimes tracks, the times not. Patient again smiled slightly to asking her to smile. Otherwise did not answer or nodded if she has pain anywhere, did not follow any commands regarding extremities. Very slight movement to painful stim with us on the right foot but not in the other 3 extremities. Patient was noted to have some rhythmic head movement [id number] and then she would have low amplitude slow bicycling type of activity in the arms and legs. No twitching, but was consistent for some time. Patient not even responding to her for following commands except for that she did turn her head and made eye contact with her . Did not tell if she is in pain anywhere. Her pupils are round and reacting. Visual lópez could not be tested. Face appears symmetric. She is on ventilator. No movement in the 4 extremities except for some rhythmic movement as above. - Labs CBC & Chem 7: 09/05/20 04:30 09/05/20 04:00 Labs: Abnormal Lab Results - Last 24 Hours (Table) 08/23/20 09/03/20 09/04/20 Range/Units 00:16 13:25 15:50 WBC (3.8-10.6) k/uL RBC (3.80-5.40) m/uL Hgb (11.4-16.0) gm/dL Hct (34.0-46.0) % MCHC (31.0-37.0) g/dL RDW (11.5-15.5) % Neutrophils # (1.3-7.7) k/uL Eosinophils # (0-0.7) k/uL ABG pH (7.35-7.45) ABG pO2 (83-108) mmHg ABG HCO3 (21-25) mmol/L ABG Total CO2 (19-24) mmol/L ABG O2 Saturation (94-97) % Sodium (137-145) mmol/L Potassium 3.4 L (3.5-5.1) mmol/L Chloride (98-107) mmol/L BUN (7-17) mg/dL Creatinine (0.52-1.04) mg/dL Glucose (74-99) mg/dL POC Glucose (mg/dL) (75-99) mg/dL Calcium (8.4-10.2) mg/dL Magnesium (1.6-2.3) mg/dL Alkaline Phosphatase (38-126) U/L Total Protein (6.3-8.2) g/dL Albumin (3.5-5.0) g/dL Crossmatch See Detail See Detail 09/04/20 09/04/20 09/05/20 Range/Units 17:17 23:52 04:00 WBC 14.0 H (3.8-10.6) k/uL RBC 1.91 L (3.80-5.40) m/uL Hgb 5.5 L* D (11.4-16.0) gm/dL Hct 17.8 L* (34.0-46.0) % MCHC 30.7 L (31.0-37.0) g/dL RDW 16.8 H (11.5-15.5) % Neutrophils # 8.7 H (1.3-7.7) k/uL Eosinophils # 0.9 H (0-0.7) k/uL ABG pH (7.35-7.45) ABG pO2 (83-108) mmHg ABG HCO3 (21-25) mmol/L ABG Total CO2 (19-24) mmol/L ABG O2 Saturation (94-97) % Sodium (137-145) mmol/L Potassium (3.5-5.1) mmol/L Chloride (98-107) mmol/L BUN (7-17) mg/dL Creatinine (0.52-1.04) mg/dL Glucose (74-99) mg/dL POC Glucose (mg/dL) 163 H 165 H (75-99) mg/dL Calcium (8.4-10.2) mg/dL Magnesium (1.6-2.3) mg/dL Alkaline Phosphatase (38-126) U/L Total Protein (6.3-8.2) g/dL Albumin (3.5-5.0) g/dL Crossmatch 09/05/20 09/05/20 09/05/20 Range/Units 04:00 04:30 05:20 WBC 13.4 H (3.8-10.6) k/uL RBC 1.85 L (3.80-5.40) m/uL Hgb 5.4 L* (11.4-16.0) gm/dL Hct 17.2 L* (34.0-46.0) % MCHC (31.0-37.0) g/dL RDW 16.8 H (11.5-15.5) % Neutrophils # 8.3 H (1.3-7.7) k/uL Eosinophils # 0.9 H (0-0.7) k/uL ABG pH 7.49 H (7.35-7.45) ABG pO2 150 H (83-108) mmHg ABG HCO3 26 H (21-25) mmol/L ABG Total CO2 27 H (19-24) mmol/L ABG O2 Saturation 99.7 H (94-97) % Sodium 152 H (137-145) mmol/L Potassium (3.5-5.1) mmol/L Chloride 120 H (98-107) mmol/L BUN 45 H (7-17) mg/dL Creatinine 1.20 H (0.52-1.04) mg/dL Glucose 150 H (74-99) mg/dL POC Glucose (mg/dL) (75-99) mg/dL Calcium 8.2 L (8.4-10.2) mg/dL Magnesium 2.7 H (1.6-2.3) mg/dL Alkaline Phosphatase 170 H (38-126) U/L Total Protein 6.1 L (6.3-8.2) g/dL Albumin 2.4 L (3.5-5.0) g/dL Crossmatch 09/05/20 09/05/20 Range/Units 05:22 11:43 WBC (3.8-10.6) k/uL RBC (3.80-5.40) m/uL Hgb (11.4-16.0) gm/dL Hct (34.0-46.0) % MCHC (31.0-37.0) g/dL RDW (11.5-15.5) % Neutrophils # (1.3-7.7) k/uL Eosinophils # (0-0.7) k/uL ABG pH (7.35-7.45) ABG pO2 (83-108) mmHg ABG HCO3 (21-25) mmol/L ABG Total CO2 (19-24) mmol/L ABG O2 Saturation (94-97) % Sodium (137-145) mmol/L Potassium (3.5-5.1) mmol/L Chloride (98-107) mmol/L BUN (7-17) mg/dL Creatinine (0.52-1.04) mg/dL Glucose (74-99) mg/dL POC Glucose (mg/dL) 169 H 140 H (75-99) mg/dL Calcium (8.4-10.2) mg/dL Magnesium (1.6-2.3) mg/dL Alkaline Phosphatase (38-126) U/L Total Protein (6.3-8.2) g/dL Albumin (3.5-5.0) g/dL Crossmatch Microbiology - Last 24 Hours (Table) 09/04/20 00:25 Gram Stain - Preliminary Sputum Sputum Culture - Preliminary 08/30/20 03:56 Blood Culture - Final Blood No Growth after 144 hours 09/03/20 18:02 Blood Culture - Preliminary Blood No Growth after 24 hours 09/02/20 18:52 Blood Culture - Preliminary Blood No Growth after 48 hours 09/01/20 14:40 Blood Culture - Preliminary Blood No Growth after 72 hours Assessment and Plan Assessment: * New onset quadriplegia, unclear etiology. Rule out critical illness myopathy, rule out spinal cord involvement like epidural abscess. CT of the cervical spine showed no evidence of discitis osteomyelitis. 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 * Status post CABG, followed by wound infection, requiring sternal debridement with persistent sepsis. Status post placement of muscle flap. * Septic shock with MSSA * Acute kidney injury * Acute transaminitis * CHF * Hypertension * History of cervical fusion, spinal stenosis in the past. Plan: * Patient is showing some rhythmic head movement, and bicycling type of movement of her arms and legs. We will check EEG to rule out any epileptiform activity. * Patient continues to be quadriplegic. Reflexes are somewhat brisk. MRI of the cervical spine with and without contrast preferable, although without contrast may be fine. * Patient continues to be encephalopathic, due to toxic metabolic encephalopathy. * Appreciate Orthopedic spine input. Hardware in the cervical spine is stable. No loosening. * CPK 74, TSH 1.87, aldolase 8.4 (1.2 to 7.6). * Patient has developed acute anemia with hemoglobin of 5.4. Patient has received one unit of blood. She is undergoing CT of abdomen and pelvis.
--- NOTE | 2020-09-05 14:04 | CT ---
EXAMINATION TYPE: CT abdomen pelvis wo con DATE OF EXAM: 09/05/2020 HISTORY: Anemia, rule out Retroperitoneal bleed CT DLP: 1085.2 mGycm. Automated Exposure Control for Dose Reduction was Utilized. TECHNIQUE: CT scan of the abdomen and pelvis is performed with oral but without IV contrast. COMPARISON: NONE FINDINGS: Within the limitations of a non-contrast study, the following observations are made. LUNG BASES: Tiny bilateral pleural effusions. Moderate Bibasilar atelectasis and/or infiltrates. Mil d cardiomegaly. Small pericardial effusion. LIVER/GB: Cholecystectomy clips.. PANCREAS: No significant abnormality is seen. SPLEEN: No significant abnormality is seen. ADRENALS: No significant abnormality is seen. KIDNEYS: No renal stones or hydronephrosis is seen bilaterally. Yu catheter in bladder which is no t completely decompressed. BOWEL: Oral contrast extends to rectum. No suspicious small or large bowel dilatation. Nasogastric tu be terminates below diaphragm. Rectal tube in place. Nonspecific small degree of presacral increased fluid and/or fat stranding for reference axial image 69. GENITAL ORGANS: Anteverted uterus. LYMPH NODES: No greater than 1cm abdominal or pelvic lymph nodes are appreciated. OSSEOUS STRUCTURES: Multilevel facet arthropathy in the lower lumbar spine. Multilevel subtle spondyl olisthesis and moderate spurring with mild disc space narrowing. OTHER: Moderate calcified plaque of the aorta extends into branch vessels. Mild to moderate anterior soft tissue fat stranding or suspected soft tissue anasarca. Moderate size left periumbilical hernia containing fat IMPRESSION: No significant intra-abdominal retroperitoneal fluid collection or bleed identified.
[2020-09-05] MEDS: POTASSIUM CHLORIDE 20 MEQ in WATER FOR INJECTION 1 100ML.BAG IVPB SCH ×2 (14:29→16:34)
[2020-09-05 14:42] LABS: Anisocytosis Slight; Basophils # (A) 0.1 k/uL (0-0.2); Basophils % (A) 0 %; Eosinophils # (A) 0.8 k/uL (0-0.7); Eosinophils % (A) 6 %; HCT 21.4 % (34.0-46.0); Hypochromasia Moderate; Lymphocytes # (A) 3.3 k/uL (1.0-4.8); Lymphocytes % (A) 26 %; MCH 27.9 pg (25.0-35.0); MCHC 30.7 g/dL (31.0-37.0); MCV 90.6 fL (80.0-100.0); Monocytes # (A) 0.3 k/uL (0-1.0); Monocytes % (A) 3 %; Neutrophils # (A) 7.9 k/uL (1.3-7.7); Neutrophils % (A) 63 %; Platelet Count 346 k/uL (150-450); Poikilocytosis Slight; RBC 2.36 m/uL (3.80-5.40); RDW 17.7 % (11.5-15.5); WBC 12.6 k/uL (3.8-10.6)
[2020-09-05 14:49] LABS: HGB 6.6 gm/dL (11.4-16.0)
[2020-09-05 14:55] LABS: Albumin 2.4 g/dL (3.5-5.0); Calcium 7.9 mg/dL (8.4-10.2); Total Bilirubin 1.2 mg/dL (0.2-1.3); Total Protein 6.1 g/dL (6.3-8.2)
[2020-09-05 15:36] LABS: Potassium 3.6 mmol/L (3.5-5.1)
[2020-09-05] MEDS: NOREPINEPHRINE 8 MG in SODIUM CHLORIDE 0.9% 250 ML IV SCH (16:30)
[2020-09-05 17:24] LABS: Glucose,Whole Blood 144 mg/dL (75-99)
[2020-09-05] MEDS: CEFEPIME 2 GM in SODIUM CHLORIDE 0.9% 100 ML IVPB SCH (20:30)
[2020-09-05 21:05] LABS: Anisocytosis Slight; HCT 24.4 % (34.0-46.0); Hypochromasia Moderate; MCH 29.5 pg (25.0-35.0); MCHC 32.6 g/dL (31.0-37.0); MCV 90.7 fL (80.0-100.0); Platelet Count 294 k/uL (150-450); Poikilocytosis Slight; RDW 16.9 % (11.5-15.5); WBC 11.7 k/uL (3.8-10.6)
[2020-09-05 23:37] LABS: Glucose,Whole Blood 133 mg/dL (75-99)
[2020-09-06] MEDS: fentaNYL (PF) 50 MCG/ML 2 ML AMP IVP PRN ×4 (02:32→22:11)
[2020-09-06] MEDS: IPRATROPIUM-ALBUTEROL 3 ML NEB INHALATION SCH ×5 (03:26→20:32)
[2020-09-06 04:28] LABS: ABG Base Excess 0.2 mmol/L; ABG HCO3 24 mmol/L (21-25); ABG Oxygen Saturation 99.1 % (94-97); ABG PCO2 35 mmHg (35-45); ABG PH 7.45 (7.35-7.45); ABG PO2 114 mmHg (83-108); ABG TCO2 25 mmol/L (19-24)
[2020-09-06 05:11] LABS: Albumin 2.3 g/dL (3.5-5.0); Calcium 7.8 mg/dL (8.4-10.2); Magnesium 2.3 mg/dL (1.6-2.3); Potassium 3.6 mmol/L (3.5-5.1); Total Bilirubin 1.2 mg/dL (0.2-1.3)
[2020-09-06 05:11] LABS: Anisocytosis Slight; Basophils # (A) 0.1 k/uL (0-0.2); Basophils % (A) 1 %; Eosinophils # (A) 0.8 k/uL (0-0.7); Eosinophils % (A) 8 %; Hypochromasia Moderate; Lymphocytes # (A) 2.6 k/uL (1.0-4.8); Lymphocytes % (A) 24 %; MCH 29.1 pg (25.0-35.0); MCHC 32.1 g/dL (31.0-37.0); MCV 90.6 fL (80.0-100.0); Mean Platelet Volume 11.8; Monocytes # (A) 0.3 k/uL (0-1.0); Monocytes % (A) 3 %; Neutrophils # (A) 6.7 k/uL (1.3-7.7); Neutrophils % (A) 63 %; Platelet Count 276 k/uL (150-450); Poikilocytosis Moderate; RBC 2.76 m/uL (3.80-5.40); RDW 17.2 % (11.5-15.5); WBC 10.6 k/uL (3.8-10.6)
[2020-09-06 05:31] LABS: Glucose,Whole Blood 140 mg/dL (75-99)
[2020-09-06] MEDS: INSULIN ASPART (NovoLOG) 100 UNIT/ML VIAL SQ SCH ×4 (05:32→23:33)
[2020-09-06] MEDS ORDERED: POTASSIUM BICARBONATE/CIT AC 20 MEQ TABLET.EFF NG-TUBE SCH ×2 (06:00→22:00)
--- NOTE | 2020-09-06 06:38 | XR ---
EXAMINATION TYPE: XR chest 1V portable DATE OF EXAM: 09/06/2020 CLINICAL HISTORY: Difficulty breathing progress study. TECHNIQUE: Single AP portable semiupright view of the chest is obtained. COMPARISON: Chest x-ray from one day earlier and older studies. FINDINGS: Stable endotracheal and orogastric tubes. Stable overlying coiled bilateral chest tubes. S table overlying mediastinal clips along with left atrial appendage clip. Partial visualization of fusion hardware cervical spine. Stable cardiomegaly. Increased opacities ely aterally remain present. No visualized pneumothorax seen bilaterally. Overlying vertical skin franc noted. IMPRESSION: Cardiomegaly with increased alveolar and interstitial edema and/or infiltrates bilaterall y remain present. Possible ARDS. No significant change from one day earlier.
--- NOTE | 2020-09-06 08:32 | P.PN ---
Subjective Progress Note Date: 09/06/20 Principal diagnosis: Shortness of breath, acute diastolic heart failure, bilateral pleural effusion, lactic acidosis, hypercapnic respiratory failure requiring BiPAP followed by me chanical ventilation, deep sternal wound infection with MSSA, acute kidney injury, acute hyperkalemia, hyponatremia, acute transaminitis, hypotension requiring vasopressors use, acute anemia. Past medical history significant for coronary artery disease with left main stenosis status post 2 vessel CABG on 08/10/2020 with expected postoperative acute blood loss anemia, hypotension, and urinary retention as well as candidal stomatititus, hyponatremia, pulmonary fibrosis, asthma, hypertension, hyperlipidemia, previous tobacco dependence, obesity, osteoarthritis, cervical stenosis post anterior cervical disc decompression, discectomy and fusion, TIA as a child, family history of premature coronary artery disease. Paroxysmal Afib with RVR. POD #10 sternal exploration with sternal debridement. POD #3 removal of table and partial resection of the manubrium as well as partial sternectomy by Dr. Sethi, right pectoralis major myocutaneous flap, left pectoralis major myocutaneous flap by Dr. Whittaker. The patient is seen in follow-up today 09/06/2020 at her bedside in the intensive care unit. The patient remians intubated with mechanical ventilator support. Current mechanical ventilator settings are assist control 20, TV 400, FiO2 40% with a PEEP of 5. Oxygen saturations on current mechanical ventilator settings are 97%. ABG results this morning show a pH of 7.45, pCO2 35, pO2 114, HCO3 24, oxygen saturation 99.1 and base excess 0.2. Sedation remains off, the patient is awake and alert and is following some simple commands this morning. She is wiggling her toes, squeezing her hands and shaking her head yes and no appropriately to verbal stimuli. Her T-max temperature in the last 24 hours was 102.8F, she remains on antibiotic coverage with Maxipime and daptomycin which is being managed by infectious disease. Preliminary results of her most recent blood cultures and sputum cultures remained to show no growth. OG tube remains in place with vital high-protein tube feeding infusing at a goal rate of 54 mL per hour. Her laboratory results this morning show a WBC count trending down at 10.6, hemoglobin 8.0, hematocrit 25.0, platelets 276, sodium 150, potassium 3.6, BUN 42, and creatinine 1.03. She did receive 2 units of PRBCs yesterday for hemoglobin of 5.4. Prevena dressing remains in place to her sternal incision with scant serosanguineous drainage. 3 RAHEEM chest drains will remain in place draining thin serosanguineous drainage. She is hemodynamically stable and is currently on no inotropic or pressor support. Bedside telemetry is showing sinus tachycardia heart rate 109 BPM and her metoprolol tartrate was increased yesterday by cardiology to 50 mg twice a day. Objective - Vital Signs Vital signs: Vital Signs Temp 98.2 F 09/06/20 04:00 Pulse 108 H 09/06/20 07:45 Resp 28 H 09/06/20 07:00 BP 104/45 09/06/20 07:00 Pulse Ox 95 09/06/20 07:00 Intake & Output 09/05/20 09/06/20 09/06/20 18:59 06:59 18:59 Intake Total 2629.894 1970 Output Total 905 965 Balance 6866.360 5388 Weight 93 kg Intake: IV 640 260 Cefepime 2 gm In Sodium 100 Chloride 0.9% 100 ml @ 200 mls/hr IVPB ONCE ONE Rx#:[id number] D5-0.45% NaCl with KCl 40 20Meq/l 1,000 ml @ 20 mls /hr IV .Q24H [facility] Rx#: [id number] DAPTOmycin 500 mg In 50 Sodium Chloride 0.9% 50 ml @ 100 mls/hr IVPB Q24HR [facility] Rx#:[id number] Dextrose 5% in Water 1, 200 260 000 ml @ 20 mls/hr IV . Q24H [facility] Rx#:[id number] Potassium Chloride 20 meq 200 In Water For Injection 1 100ml.bag @ 50 mls/hr IVPB Q2H [facility] Rx#: [id number] ceFAZolin 2 gm In Sodium 50 Chloride 0.9% 50 ml @ 100 mls/hr IVPB Q8HR [facility] Rx# :[id number] Intake, IV Titration 175.894 Amount Norepinephrine 8 mg In 175.894 Sodium Chloride 0.9% 250 ml @ 0.05 MCG/KG/MIN 8. 485 mls/hr IV .Q24H [facility] Rx#:[id number] Tube Feeding 594 810 Blood Product 620 Rc As-1 Unit 310 [id number] As-1 Unit 310 [id number] Other 600 900 Output: Drainage 50 140 Bilateral Abdomen 20 RAHEEM #1. 10 RAHEEM #2 30 120 RAHEEM #3 10 Urine 855 825 Other: Voiding Method Indwelling Catheter Indwelling Catheter ABP, PAP, CO, CI - Last Documented Arterial Blood Pressure 124/38 - Constitutional Constitutional Comment(s): The patient is resting in bed in the intensive care unit, she is awake, and alert. Sedation remains off. She is following some simple commands with squeezing hands and wiggling her toes and shaking her head yes and no appropriately to verbal stimuli. General appearance: Present: cooperative, no acute distress, obese - EENT Eyes: Present: normal appearance. Absent: scleral icterus ENT: Present: hearing grossly normal - Neck Details: Neck is supple, no JVD. - Respiratory Details: Lung sounds with few scattered rhonchi throughout, diminished bilateral bases. Respirations are symmetrical and nonlabored with mechanical ventilator support. Current mechanical ventilator settings are as follows, assist-control 20, TV 400, FiO2 40% and PEEP of 5. Oxygen saturation is on current mechanical vent ilator settings are 97%. ABG results this morning show a pH of 7.45, pCO2 35, pO2 114, HCO3 24, oxygen saturation 99.1, base excess 0.2. - Cardiovascular Details: Regular rhythm and tachycardic rate. S1 and S2 present, negative for S3, gallop or murmur. Heart hugger is in place. Bedside telemetry showing sinus tachycardia heart rate 109 BPM. Knee-high ANGEL hose and sequential compression devices in place to her bilateral lower extremities. Right femoral triple-lumen catheter in place and functioning. +1 generalized edema. - Gastrointestinal Gastrointestinal Comment(s): Abdomen is soft, nontender and nondistended. Active bowel sounds present in all 4 abdominal quadrants. No guarding or rigidity. No organomegaly appreciated. OG tube in place with vital high-protein tube feeding infusing at goal rate of 54 mL per hour. Fecal management system in place with liquid greenish brown stool. - Genitourinary Genitourinary Comment(s): Yu catheter for accurate I&O. Draining clear jac urine with 625 mL output in the last 8 hours. - Integumentary Integumentary Comment(s): Skin is warm and dry. No clubbing or cyanosis is present. Prevena dressing is clean, dry and in place. Scant serosanguineous drainage. 3 RAHEEM chest drains in place draining thin serosanguineous drainage. RAHEEM drain #1 with 10 mL output in the last 8 hours. RAHEEM drain #2 with 60 mL output in the last 8 hours. RAHEEM drain #3 with 10 mL output in the last 8 hours. Left lower extremity EVH site is clean, dry and approximated. No drainage or redness is present. Left groin with some macerated area to wear her dialysis catheter was previously placed. - Neurologic Neurologic Comment(s): Awake and alert. Moving her toes, and squeezing her hands with verbal stimuli. Shaking her head yes and no properly verbal stimuli. - Musculoskeletal Musculoskeletal: Present: generalized weakness - Psychiatric Psychiatric Comment(s): Awake and alert, patient remains intubated with mechanical ventilator support. Unable to accurately assess her orientation at this time. - Allied health notes Allied health notes reviewed: nursing - Labs CBC & Chem 7: 09/06/20 04:40 09/06/20 04:34 Labs: Abnormal Lab Results - Last 24 Hours (Table) 09/03/20 09/05/20 09/05/20 Range/Units 13:25 11:43 14:13 WBC 12.6 H (3.8-10.6) k/uL RBC 2.36 L (3.80-5.40) m/uL Hgb 6.6 L* (11.4-16.0) gm/dL Hct 21.4 L (34.0-46.0) % MCHC 30.7 L (31.0-37.0) g/dL RDW 17.7 H (11.5-15.5) % Neutrophils # 7.9 H (1.3-7.7) k/uL Eosinophils # 0.8 H (0-0.7) k/uL ABG pO2 (83-108) mmHg ABG Total CO2 (19-24) mmol/L ABG O2 Saturation (94-97) % Sodium (137-145) mmol/L Chloride (98-107) mmol/L BUN (7-17) mg/dL Creatinine (0.52-1.04) mg/dL Glucose (74-99) mg/dL POC Glucose (mg/dL) 140 H (75-99) mg/dL Calcium (8.4-10.2) mg/dL Alkaline Phosphatase (38-126) U/L Total Protein (6.3-8.2) g/dL Albumin (3.5-5.0) g/dL Crossmatch See Detail 09/05/20 09/05/20 09/05/20 Range/Units 14:13 17:13 20:51 WBC 11.7 H (3.8-10.6) k/uL RBC 2.70 L (3.80-5.40) m/uL Hgb 8.0 L (11.4-16.0) gm/dL Hct 24.4 L (34.0-46.0) % MCHC (31.0-37.0) g/dL RDW 16.9 H (11.5-15.5) % Neutrophils # (1.3-7.7) k/uL Eosinophils # (0-0.7) k/uL ABG pO2 (83-108) mmHg ABG Total CO2 (19-24) mmol/L ABG O2 Saturation (94-97) % Sodium 152 H (137-145) mmol/L Chloride 120 H (98-107) mmol/L BUN 44 H (7-17) mg/dL Creatinine 1.26 H (0.52-1.04) mg/dL Glucose 110 H (74-99) mg/dL POC Glucose (mg/dL) 144 H (75-99) mg/dL Calcium 7.9 L (8.4-10.2) mg/dL Alkaline Phosphatase 184 H (38-126) U/L Total Protein 6.1 L (6.3-8.2) g/dL Albumin 2.4 L (3.5-5.0) g/dL Crossmatch 09/05/20 09/06/20 09/06/20 Range/Units 23:34 04:23 04:34 WBC (3.8-10.6) k/uL RBC (3.80-5.40) m/uL Hgb (11.4-16.0) gm/dL Hct (34.0-46.0) % MCHC (31.0-37.0) g/dL RDW (11.5-15.5) % Neutrophils # (1.3-7.7) k/uL Eosinophils # (0-0.7) k/uL ABG pO2 114 H (83-108) mmHg ABG Total CO2 25 H (19-24) mmol/L ABG O2 Saturation 99.1 H (94-97) % Sodium 150 H (137-145) mmol/L Chloride 119 H (98-107) mmol/L BUN 42 H (7-17) mg/dL Creatinine (0.52-1.04) mg/dL Glucose 140 H (74-99) mg/dL POC Glucose (mg/dL) 133 H (75-99) mg/dL Calcium 7.8 L (8.4-10.2) mg/dL Alkaline Phosphatase 160 H (38-126) U/L Total Protein 6.0 L (6.3-8.2) g/dL Albumin 2.3 L (3.5-5.0) g/dL Crossmatch 09/06/20 09/06/20 Range/Units 04:40 05:30 WBC (3.8-10.6) k/uL RBC 2.76 L (3.80-5.40) m/uL Hgb 8.0 L (11.4-16.0) gm/dL Hct 25.0 L (34.0-46.0) % MCHC (31.0-37.0) g/dL RDW 17.2 H (11.5-15.5) % Neutrophils # (1.3-7.7) k/uL Eosinophils # 0.8 H (0-0.7) k/uL ABG pO2 (83-108) mmHg ABG Total CO2 (19-24) mmol/L ABG O2 Saturation (94-97) % Sodium (137-145) mmol/L Chloride (98-107) mmol/L BUN (7-17) mg/dL Creatinine (0.52-1.04) mg/dL Glucose (74-99) mg/dL POC Glucose (mg/dL) 140 H (75-99) mg/dL Calcium (8.4-10.2) mg/dL Alkaline Phosphatase (38-126) U/L Total Protein (6.3-8.2) g/dL Albumin (3.5-5.0) g/dL Crossmatch Microbiology - Last 24 Hours (Table) 09/03/20 18:02 Blood Culture - Preliminary Blood No Growth after 48 hours 09/02/20 18:52 Blood Culture - Preliminary Blood No Growth after 72 hours 09/01/20 14:40 Blood Culture - Preliminary Blood No Growth after 96 hours 09/04/20 00:25 Gram Stain - Preliminary Sputum Sputum Culture - Preliminary 08/30/20 03:56 Blood Culture - Final Blood No Growth after 144 hours - Imaging and Cardiology Chest x-ray: report reviewed, image reviewed Assessment and Plan Assessment: 1. Shortness of breath, acute diastolic heart failure, EF 55-60% on current TTE, bilateral pleural effusions 2. Lactic acidosis, septic shock, blood cultures positive for MSSA 3. Hypercapnic, hypoxic respiratory failure requiring BiPAP, with subsequent intubation and mechanical ventilation 4. Open sternal wound, surgically created, deep sternal wound infection with MSSA, S/P surgical exploration and debridement with daily dressing changes 5. Leukocytosis with bandemia, bandemia resolved, WBC trending down 6. Acute kidney injury, metabolic acidosis, metabolic acidosis resolved, kidney function returning to normal after receiving dialysis 7. Acute hyperkalemia, resolved 8. Acute transaminitis secondary to hypoperfusion, resolving 9. History of hypertension, hypotensive this admission requiring vasopressors, currently off vasopressors 10. Acute anemia, post transfusion PRBCs, on 11. Coronary artery disease with left main stenosis status post 2 vessel CABG on 08/10/2020 with expected postoperative acute blood loss anemia, hypotension, and urinary retention as well as candidal stomatititus 12. Hyponatremia, resolved 13. Pulmonary fibrosis, asthma 14. Hyperlipidemia, treated 15. Previous tobacco dependence 16. Obesity 17. Paroxysmal afib w/ RVR, atrial flutter, status post exclusion of the left atrial appendage using a 35 mm AtriClip, currently sinus rhythm 18. 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 Ventilator management per pulmonary medicine. Weaning trials managed by pulmonary critical care medicine. 2. Nephrology following, avoid nephrotoxins, diuretic management per nephrology recommendations. Currently on Lasix 40 mg IV daily. 3. Infectious disease following, blood cultures from 09/01/2020 and 09/02/2020 currently show no growth. Sputum culture from 09/04/2020 pulmonary result shows no growth. Remains on antibiotic coverage of cefazolin. Previous blood, sputum and sternal wound cultures showed positive for MSSA. T-max temperature in the last 24 hours was 101.2F. 4. Continue aspirin, Plavix, beta sisi. Atorvastatin 40 mg by mouth daily was restarted yesterday 09/04/2020 as her liver enzymes have normalized. We will increase metoprolol tartrate as tolerated. 5. No anticoagulation at this time. 6. Will continue to monitor daily labs and chest x-rays, ABGs. 7. 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 The myopathy seems to be somewhat improving this morning as the patient is wiggling her toes and squeezing her drains with verbal stimuli. 8. GI/DVT prophylaxis. 9. Continue tube feeding for nutrition, per dietitian recommendations. Currently at goal rate of 54 mL per hour vital high-protein. 10. Patient's and daughter updated on her care per phone. 11. Replace electrolytes per protocol. 12. Continue per Prevena dressing to her sternal incision. Continue to monitor RAHEEM drainage. 13. Continue to follow culture results. 14. Surgical pathology results remain pending. 15. More recommendations to follow based on patient's clinical course. Time with Patient: Greater than 30
[2020-09-06] MEDS: CEFEPIME 2 GM in SODIUM CHLORIDE 0.9% 100 ML IVPB SCH ×2 (08:35→20:33)
[2020-09-06] MEDS: DAPTOmycin 500 MG in SODIUM CHLORIDE 0.9% 50 ML IVPB SCH (08:35)
[2020-09-06] MEDS: FUROSEMIDE 10 MG/ML 4 ML VIAL IV SCH (08:36)
[2020-09-06] MEDS: CLOPIDOGREL 75 MG TAB PO SCH (08:36)
[2020-09-06] MEDS: PANTOPRAZOLE 40 MG/10 ML VIAL IVP SCH (08:36)
[2020-09-06] MEDS: CHLORHEXIDINE GLUCONATE 15 ML CUP MUCOUS MEM SCH ×2 (08:36→20:33)
[2020-09-06] MEDS: HEPARIN SODIUM,PORCINE 5,000 UNIT/ML 1 ML VIAL SQ SCH ×3 (08:36→23:32)
[2020-09-06] MEDS: ASPIRIN 325 MG TAB PO SCH (08:36)
[2020-09-06] MEDS: METOPROLOL TARTRATE 50 MG TAB PO SCH ×2 (08:37→20:33)
[2020-09-06] MEDS: DRY MOUTH SPRAY 44.3 SPRAY/44.3 ML SPRAY MUCOUS MEM SCH ×4 (08:37→22:13)
[2020-09-06] MEDS: DEXTROSE 5% IN WATER 1,000 ML IV SCH (08:37)
--- NOTE | 2020-09-06 09:41 | P.PN ---
Subjective Patient is seen in follow-up for acute kidney injury. Renal function improving. Nonoliguric. Status post blood transfusions yesterday. Hemoglobin 8.0 this morning. Maintained on IV Lasix. Also receiving tube feeding. Currently on 40% FiO2. Vital signs: Tachycardic. Otherwise stable. HEENT: Intubated. LUNGS: Breath sounds decreased. HEART: Tachycardic. ABDOMEN: Soft, no distention noted. EXTREMITITES: Trace edema. Objective - Vital Signs Vital signs: Vital Signs Temp 98.2 F 09/06/20 04:00 Pulse 107 H 09/06/20 07:55 Resp 28 H 09/06/20 07:00 BP 104/45 09/06/20 07:00 Pulse Ox 95 09/06/20 07:00 Intake & Output 09/05/20 09/06/20 09/06/20 18:59 06:59 18:59 Intake Total 2629.894 1970 Output Total 905 965 Balance 7554.786 5352 Weight 93 kg Intake: IV 640 260 Cefepime 2 gm In Sodium 100 Chloride 0.9% 100 ml @ 200 mls/hr IVPB ONCE ONE Rx#:[id number] D5-0.45% NaCl with KCl 40 20Meq/l 1,000 ml @ 20 mls /hr IV .Q24H [facility] Rx#: [id number] DAPTOmycin 500 mg In 50 Sodium Chloride 0.9% 50 ml @ 100 mls/hr IVPB Q24HR [facility] Rx#:[id number] Dextrose 5% in Water 1, 200 260 000 ml @ 20 mls/hr IV . Q24H [facility] Rx#:[id number] Potassium Chloride 20 meq 200 In Water For Injection 1 100ml.bag @ 50 mls/hr IVPB Q2H [facility] Rx#: [id number] ceFAZolin 2 gm In Sodium 50 Chloride 0.9% 50 ml @ 100 mls/hr IVPB Q8HR [facility] Rx# :[id number] Intake, IV Titration 175.894 Amount Norepinephrine 8 mg In 175.894 Sodium Chloride 0.9% 250 ml @ 0.05 MCG/KG/MIN 8. 485 mls/hr IV .Q24H [facility] Rx#:[id number] Tube Feeding 594 810 Blood Product 620 Rc As-1 Unit 310 [id number] Rc As-1 Unit 310 [id number] Other 600 900 Output: Drainage 50 140 Bilateral Abdomen 20 RAHEEM #1. 10 RAHEEM #2 30 120 RAHEEM #3 10 Urine 855 825 Other: Voiding Method Indwelling Catheter Indwelling Catheter ABP, PAP, CO, CI - Last Documented Arterial Blood Pressure 124/38 - Labs CBC & Chem 7: 09/06/20 04:40 09/06/20 04:34 Labs: Abnormal Lab Results - Last 24 Hours (Table) 09/03/20 09/05/20 09/05/20 Range/Units 13:25 11:43 14:13 WBC 12.6 H (3.8-10.6) k/uL RBC 2.36 L (3.80-5.40) m/uL Hgb 6.6 L* (11.4-16.0) gm/dL Hct 21.4 L (34.0-46.0) % MCHC 30.7 L (31.0-37.0) g/dL RDW 17.7 H (11.5-15.5) % Neutrophils # 7.9 H (1.3-7.7) k/uL Eosinophils # 0.8 H (0-0.7) k/uL ABG pO2 (83-108) mmHg ABG Total CO2 (19-24) mmol/L ABG O2 Saturation (94-97) % Sodium (137-145) mmol/L Chloride (98-107) mmol/L BUN (7-17) mg/dL Creatinine (0.52-1.04) mg/dL Glucose (74-99) mg/dL POC Glucose (mg/dL) 140 H (75-99) mg/dL Calcium (8.4-10.2) mg/dL Alkaline Phosphatase (38-126) U/L Total Protein (6.3-8.2) g/dL Albumin (3.5-5.0) g/dL Crossmatch See Detail 09/05/20 09/05/20 09/05/20 Range/Units 14:13 17:13 20:51 WBC 11.7 H (3.8-10.6) k/uL RBC 2.70 L (3.80-5.40) m/uL Hgb 8.0 L (11.4-16.0) gm/dL Hct 24.4 L (34.0-46.0) % MCHC (31.0-37.0) g/dL RDW 16.9 H (11.5-15.5) % Neutrophils # (1.3-7.7) k/uL Eosinophils # (0-0.7) k/uL ABG pO2 (83-108) mmHg ABG Total CO2 (19-24) mmol/L ABG O2 Saturation (94-97) % Sodium 152 H (137-145) mmol/L Chloride 120 H (98-107) mmol/L BUN 44 H (7-17) mg/dL Creatinine 1.26 H (0.52-1.04) mg/dL Glucose 110 H (74-99) mg/dL POC Glucose (mg/dL) 144 H (75-99) mg/dL Calcium 7.9 L (8.4-10.2) mg/dL Alkaline Phosphatase 184 H (38-126) U/L Total Protein 6.1 L (6.3-8.2) g/dL Albumin 2.4 L (3.5-5.0) g/dL Crossmatch 09/05/20 09/06/20 09/06/20 Range/Units 23:34 04:23 04:34 WBC (3.8-10.6) k/uL RBC (3.80-5.40) m/uL Hgb (11.4-16.0) gm/dL Hct (34.0-46.0) % MCHC (31.0-37.0) g/dL RDW (11.5-15.5) % Neutrophils # (1.3-7.7) k/uL Eosinophils # (0-0.7) k/uL ABG pO2 114 H (83-108) mmHg ABG Total CO2 25 H (19-24) mmol/L ABG O2 Saturation 99.1 H (94-97) % Sodium 150 H (137-145) mmol/L Chloride 119 H (98-107) mmol/L BUN 42 H (7-17) mg/dL Creatinine (0.52-1.04) mg/dL Glucose 140 H (74-99) mg/dL POC Glucose (mg/dL) 133 H (75-99) mg/dL Calcium 7.8 L (8.4-10.2) mg/dL Alkaline Phosphatase 160 H (38-126) U/L Total Protein 6.0 L (6.3-8.2) g/dL Albumin 2.3 L (3.5-5.0) g/dL Crossmatch 09/06/20 09/06/20 Range/Units 04:40 05:30 WBC (3.8-10.6) k/uL RBC 2.76 L (3.80-5.40) m/uL Hgb 8.0 L (11.4-16.0) gm/dL Hct 25.0 L (34.0-46.0) % MCHC (31.0-37.0) g/dL RDW 17.2 H (11.5-15.5) % Neutrophils # (1.3-7.7) k/uL Eosinophils # 0.8 H (0-0.7) k/uL ABG pO2 (83-108) mmHg ABG Total CO2 (19-24) mmol/L ABG O2 Saturation (94-97) % Sodium (137-145) mmol/L Chloride (98-107) mmol/L BUN (7-17) mg/dL Creatinine (0.52-1.04) mg/dL Glucose (74-99) mg/dL POC Glucose (mg/dL) 140 H (75-99) mg/dL Calcium (8.4-10.2) mg/dL Alkaline Phosphatase (38-126) U/L Total Protein (6.3-8.2) g/dL Albumin (3.5-5.0) g/dL Crossmatch Microbiology - Last 24 Hours (Table) 09/04/20 00:25 Gram Stain - Final Sputum Sputum Culture - Final 09/03/20 18:02 Blood Culture - Preliminary Blood No Growth after 48 hours 09/02/20 18:52 Blood Culture - Preliminary Blood No Growth after 72 hours 09/01/20 14:40 Blood Culture - Preliminary Blood No Growth after 96 hours 08/30/20 03:56 Blood Culture - Final Blood No Growth after 144 hours Assessment and Plan Plan: Assessment: 1. Acute kidney injury secondary to ATN secondary to hypotension/sepsis on admission and then from nafcillin. Baseline creatinine near 1. She did require hemodialysis earlier this admission has subsequently recovered kidney function. Creatinine 1.03 today. 2. Volume overload. Improving with diuresis. 3. Hypernatremia from lack of oral water intake. 4. Wound dehiscence of the sternum with MSSA bacteremia. On antibiotics. Also underwent sternal debridement this admission. 5. Acute hypoxia respiratory failure. Currently on 40% FiO2. 6. Status post CABG in 08/10/2020. 7. Acute blood loss anemia requiring multiple blood transfusions this admission. Also on Aranesp. 8. Hypokalemia from diuresis. Plan: Maintain IV Lasix. Maintain tube feeding. Increase free water flushes to 400 mL every 4 hours. Continue to monitor renal function and urine output. Replace potassium. 40 mEq today. Wean FiO2.
--- NOTE | 2020-09-06 09:47 | PN ---
PROGRESS NOTE Ms. Alvarenga is a 75-year-old female, status post coronary artery bypass grafting who was readmitted with respiratory failure and evidence of pneumonia and dehiscences of her sternal wound. Underwent debridement with a placement of a pectoralis flap. She remains intubated. She got transfused 2 units yesterday. She is in sinus mechanism. She is awake, following commands. Hemodynamically, stable. Her urine output has been stable. She continues to be on aspirin once a day, Plavix 75 mg daily, furosemide 40 mg IV daily, metoprolol tartrate 50 mg twice a day. PHYSICAL EXAMINATION: Blood pressure 104/50 with a heart rate in the low 100s. LUNGS: Clear anteriorly. HEART: Regular rate and rhythm S1, S2. No S3. No rub appreciated. ABDOMEN: Soft. Positive bowel sounds. No organomegaly. EXTREMITIES: +1 edema. LAB DATA: Lab data revealed hemoglobin of 8. BUN and creatinine 42 and 1.03. Potassium 3.6. Her sodium is down to 154 and 152 yesterday. Her chest x-ray shows bilateral infiltrates with no significant changes. IMPRESSION: 1. Respiratory failure status post coronary artery bypass grafting and wound dehiscence. 2. Wound dehiscence status post pectoralis muscle flap. 3. History of hypertension. 4. History of hyperlipidemia. 5. Anemia, improved. 6. Bilateral infiltrate with possible ARDS. RECOMMENDATIONS: Patient appears to be more awake today. We will continue clinical observation on the present medical therapy. Depending on her progress, recommendations will be made regarding weaning. MMODL / IJN: [id number] /
--- NOTE | 2020-09-06 09:49 | P.PN ---
Subjective Progress Note Date: 09/06/20 HISTORY OF PRESENT ILLNESS This is a 75-year-old female patient of Dr. Rich Avila, Dr. Sloan and Dr. Guadalupe. She has a past medical history significant for hypertension, hype rlipidemia, pulmonary fibrosis, asthma, obesity, remote history of tobacco dependence with smoking 32 years ago, osteoarthritis, cervical stenosis post anterior cervical decompression, discectomy and fusion, TIA as a child at age 11 and family history of premature coronary artery disease with her father being diagnosed in his early 50s. Recently, the patient has been experiencing episodes of shortness of breath over the past 6 months with just minimal activity. She also complained of some lower extremity swelling which did resolve with some diuresis. she underwent a stress test which showed anterior wall ischemia with small reversible defect. a 2-D echocardiogram which showed mild aortic valve insufficiency, mild mitral valve regurgitation, mild tricuspid valve regurgitation and left ventricular function to be normal with an ejection fraction of 55%. Subsequently she underwent an elective heart catheterization on 07/27/2020 which demonstrated a left main stenosis with QING with a calculation of 2.6 mm, a 40% stenosis to her mid left anterior descending coronary artery and a 30% stenosis to her right coronary artery. Due to the patient's symptoms and findings on her heart catheterization of left main stenosis a consult was placed to Dr. Sethi from cardiothoracic surgery for further evaluation and treatment recommendations. During her preoperative workup her serum sodium level was found to be 120 and was admitted prior to surgery for treatment of hyponatremia. Last admission On 08/06/2020-08/19/20 the patient was admitted to the hospital for treatment of her hyponatremia, and once her hyponatremia was resolved on 08/10/2020, asubsequently taken to the operating room where Dr. Sethi performed a double vessel coronary artery bypass grafting surgery using the left internal mammary artery to left anterior setting coronary artery, a reverse greater saphenous vein graft from the aorta to the first obtuse marginal coronary artery, endoscopic harvesting of the left greater saphenous vein from the groin Upon completion of the surgery the patient was transferred to the intensive care unit where she was recovered, monitored hemodynamically and where she progressed cardiac rehabilitation phase Her oxygen was titrated down, she continued to work with physical/occupational therapy and cardiac rehabilitation, she was tolerating an oral diet, her pain was well controlled without narcotics and she was ready to be discharged home with [facility] care on postoperative day #9. Did not require home O2 on last admission however she required new medication changes including diuretics during that last admission. Patient comes in in worsening shortness of breath anasarca, no chest pain, has BARKER, edma without leg pain new medications from last visit was compliant, requiring lipitor 75bid, tolvaptan. meotprolol 75 bid plavix, lasix 40 mg daily losartain 25 asa 325, ferrous sulfate and fluconazole. patient comes in now for CHF, anarsarc ely pleural effusion, consult with dr Sethi. and cardiology, if okay will be cardiothoracic surgeon can also perform the thoracentesis, however with hypoxemia, also have requested Dr. Gamboa's services. Patient has a hemoglobin of 7.0 on and 3, platelet count of 305, hemoglobin right to admission was 8.0 denies any Hemoccult stools, creatinine was 1.60 from a previous of 0.9 blood pressure is in the low 90s systolic, pulse ox, 90 on 4 L nasal cannula, patient was not discharged with home O2 during her last admission 08/24: A-Team was called for mental status changes. Patient was found to have a blood pressure 99/65, heart rate of 85 and pulse ox of 96% on a nonrebreather with respiratory rate of 32. Patient was transferred to the ICU. She was started on vancomycin and cefepime. Patient has been seen by cardiology with plan to continue vasopressor support, patient may need pleurocentesis. Stat echocardiogram was done to rule out pericardial effusion or tamponade. Patient has been seen by nephrology for acute kidney injury secondary to ATN secondary to hypotension and cardiorenal syndrome. Patient is currently on bicarb drip, status post Lasix 80 mg IV once. Renal replacement therapy to be initiated immediately. Vascular consult in place for a dialysis catheter placement and start hemodialysis today with second treatment tomorrow. Sternal wound was producing thick yellowish brown fluid, was opened approximately 2 cm and deep culture was taken, packed and covered with 4 x 4 dressing. She is requiring vasopressors. She is hypothermic and warming blanket is in place.Patient had minimal output yesterday and none today. She is status post 2.5 L of fluids. 08/25 patient was examined in the ICU. She was able to maintain oxygenation on BiPAP overnight switch to high flow 15 m this morning. Patient did have episodes of agitation last night and was started on Seroquel. She did receive a dose of Seroquel prior to admission and was found to be resting comfortably. Patient is off pressors and bicarbonate drip and metabolic acidosis seemed to have cleared off. On evaluation of patient's lab, WBC is 14.3, hemoglobin 6.5 platelet 208 ABG this morning has a pH of 7.47 CO2 74. Bicarb 29. Sodium has improved to 126 chloride 96 BUN 43 creatinine 2.79 lactic acid has improved to 2.9 calcium 7 liver enzymes elevated AST at 2874 ALT 1469 alkaline phosphatase 192 CRP 356 BNP 13,000 UA does suggest some infection with WBC of 88 hyaline casts 33 protein 2+ urine blood trace nitrite negative leukocyte Estrace negative. Wound cultures positive for presumptive staph aureus. Patient's blood culture from yesterday are positive with presumptive staph aureus. Repeat blood cultures ordered. Patient received 1 unit of PRBCs for low hemoglobin. Urine output has improved to 20-40 mL's per hour. Patient did receive a dose of DDAVP for hyponatremia. Normal saline is running at 50 mL per hour. Did receive hemodialysis today with 2 L ultrafiltration. Patient was also noted to be in A. fib with RVR intermittently and her dose of Lopressor was increased to 25 mg every 8 hours. Continue daptomycin and cefepime for antibiotic coverage. Monitor patient's for QTC prolongation well on Seroquel. Patient has significant dehiscence of wound and may need I&D 08/26: She was intubated and placed on mechanical ventilation overnight with pulse ox of 96%, tidal volume 450, FiO2 50, PEEP of 5. Temperature max last evening was 101.2. Heart rate 82, blood pressure 120/53. WBC 9.6, hemoglobin 10.8, platelet count 159. Sodium 134, potassium 4.7, chloride 100, CO2 25, BUN 14 creatinine 1.83. Blood sugars running between 100 2753. Total bilirubin 3.3, AST 1067, ALT 993, alkaline phosphatase 251. Magnesium 2.1. Patient is on vasopressors. threat monitoring analyst atrial flutter alternating with sinus rhythm. Patient is also on propofol and Seroquel discontinued. Thoracic surgery is possible taking her to or for I&D and considering wound VAC. Patient is on Plavix. Echocardiogram reveals normal LV function and mild aortic stenosis. Patient is currently on daptomycin and cefepime per Dr. Mcintyre. Urine output remains low at 15-20 mL per hour. Should she is scheduled for third hemodialysis treatment today. Patient is scheduled for Lasix 80 mg IV this afternoon. 08/27 she remains in the ICU, intubated and mechanically ventilated. Patient is going to the OR for debridement today. Patient remains intubated on 50% FiO2 and PEEP of 5, assist control rate of 20volume 450. Continues to require Levophed at 11mcg/ hr . Blood clots and culture positive for MSSA. Urine output is 50-60 mL per hour. Patient continues to be on sedation from propofol at 50 max per KG permanent. IV fluids at KVO. Patient continues to have good urine output after a dose of 80 mg of IV Lasix today. Vision tolerated 2.5 L ultrafiltration yesterday and is started on hemodialysis on August 24. No holiday sedation today. Plan to continue Lasix 80 IV once daily and holding hemodialysis. Anticoagulation held for debridement. 08/28 patient remains in the ICU. Did have sternal Exploration and debridement yesterday remains sedated on propofol. Patient continues to have high temp of 101.6, to 233 tachycardic 111 blood pressure 106/51 oxygen saturation 95% on 50% FiO2. Labs suggest a leukocytosis of 24.3 hemoglobin stable at 10.7 platelet count has dipped dropped to 78, he really suggest a pH of 7.53 pCO2 30 PaO2 57, chloride of 110 potassium 3.5 and anion gap of 6 BUN 46 creatinine 0.9 calcium 7.8 ALT 3:15 alkaline phosphatase 312 AST 112 blood cultures from 08/26 positive for staph aureus. Urine output 1.2 L in 24 hours Repeat blood cultures sent today. Patient continues to be normal sinus rhythm not currently on any anticoagulation at the possibility of going for another debridement. Patient's continues to be on levo fed and still stays intubated. Continue IV Lasix. Patient initiated on IV Lasix 08/29: Patient remain in the ICU, remain on mechanical ventilation, sternal exploration and debridement was done and still have packing area within open wound at this point. Oxygenation is better patient is not 3 to be off vent at this point. Her urine output has been good and hemodynamically stable. 08/30: Patient still on mechanical ventilation, his sternum 1 and was changed today still have significant amount of infection and pus was packed still open. Patient remain on nafcillin and Moni mycin. Still having positive blood culture. 08/31: Patient is more awake today doing trial of weaning parameter try to get patient off the respirator, her incision and infection along the sternum is no change still have packing on still on IV antibiotics. Hemodynamically is more stable. 09/01: Patient evaluated in the ICU, continues on mechanical ventilation. Wound packing was removed yesterday, purulence was noted on the packing, deep near the heart and purulence around the heart. She continues on IV clindamycin and nafcillin. Patient was taken off sedation yesterday for a trial of weaning, but she became hypertensive and tachypneic so she is placed back on sedation. 09/02: Patient remains intubated and on mechanical ventilation with tidal volume 400, FiO2 of 50% and PEEP of 5. Patient has been off sedation since Monday. She is receiving OG tube feedings. She appears to be opening meaning her eyes and can shake her head. Otherwise not moving extremities. She has a wound VAC in place to the sternal wound. Wound cultures and blood culture positive for MSSA. She is scheduled for sternal wound excision and debridement with flap reconstruction and graft tomorrow with Dr. Whittaker. Repeat blood work reveals WBC of 13.6, hemoglobin 8.5. BUN 66 and creatinine 1.62, potassium 3.2 and has been replaced, blood sugars running between 107 and 132. Because renal functioning is worsening, nephrology has recommended holding nafcillin. Repeat chest x-ray reveals correlate for pneumonia, edema, ARDS. 09/03: She remains in the intensive care unit intubated and on mechanical ventilation with tidal volume 400, FiO2 40, PEEP of 5. Patient is awake with eyes open. She nodded her head no to having pain. She had a temperature this morning of 101.6 at 6 AM. Antibiotics are currently in the form of Kefzol. Repeat chest x-ray was done this morning and report is pending. Patient has been seen by neurology and doubt critical illness neuropathy. CAT scan of the brain and cervical spine done that showed no acute fracture or dislocation in the cervical spine. No acute intracranial hemorrhage, mass effect or midline shift. Ongoing airspace disease. Cardiology has recommended reinitiating statin. Temperature max 101.6, heart rate 101, blood pressure 117/52, pulse ox 95%. Repeat blood work reveals WBC 15.4, hemoglobin 8.3, platelet count 243. Sodium 149, potassium 2.8, chloride 111, CO2 28, BUN 66 and creatinine 1.49. Total bilirubin 2.4, AST 43, ALT 33 and alkaline phosphatase 260. All previous blood cultures have been positive for staph aureus MSSA. A repeat blood culture on August 2029 showing no growth at 24 hours. 09/04: Yesterday, patient underwent excision of sternal wound, partial sternotomy and pectoralis flap procedure. This morning, patient had new lines done by pulmonary medicine. Dr. Mcintyre has recommended continuing Kefzol and repeat blood cultures are in progress. Repeat chest x-ray reveals rotated exam, findings similar to prior, correlate for edema, pneumonia, ARDS. Cardiothoracic surgeryhas ordered a consult with Dr. Yuan. He has evaluated patient for global weakness and does not think she has new cervical spine issues that would cause her global weakness.patient continues to have fever with temperature maximum 102.2, tachycardic in the low 100s, respiratory rate 30, blood pressure 103/60, pulse ox 98%. She remains intubated and on mechanical ventilation with tidal volume 400, FiO2 50, PEEP of 5. WBC 17.5, hemoglobin 7.2, platelet count 328. Sodium 149, potassium 3.8, chloride 115, CO2 26, BUN 59 and creatinine 1.37. Blood sugars running 129-144. Magnesium 2.6. Total bilirubin 2.0, AST 39, alkaline phosphatase 197, ALT 19.. sputum culture has been obtained. Most recent blood culture from September 02 showing no growth at 24 hours and blood culture from September 01 is no growth at 48 hours. Patient is currently on very minimal sedation. 09/05: Patient remains in the ICU, intubated and on mechanical ventilation with tidal volume 400, FI02 40% and peep 5. Patient continues to run fevers. Dr. Mcintyre has changed antibiotics to cefepime and daptomycin. Blood cultures dated September 01, , are showing no growth. Sputum culture is in process. threat monitoring analyst sinus tachycardia. Heart rate has been running between 108 and 121, respiratory rate 31, blood pressure 90/32, pulse ox 98%. She remains on low dose norepinephrine. Patient is off sedation with eyes open. She is not moving extremities. She has been evaluated by orthopedic spine and spinal etiology has essentially been ruled out. Patient is also been evaluated by neurology and critical care neuropathy has also been essentially ruled out. Patient stabilized, hopefully a MRI can be performed. WBC 13.4, hemoglobin 5.4 and this was rechecked, platelet count 313, sodium 152, potassium 3.6, BUN 45 and creatinine 1.2. Patient is receiving 1 unit of packed RBCs. Nephrology is continuing IV Lasix 40 mg daily. Patient is on PEG tube feedings and tolerating. 09/06: Patient remains in intensive care unit. She is intubated and on mechanical ventilation with tidal volume 400, FiO2 40, PEEP 5. The patient has her eyes open, she is responsive with facial movement, she is able to minimally move lower extremities. She has a fecal management system in place as well as Yu catheter with good urine output. Patient was running fevers yesterday until evening. Patient has been afebrile following a reading of 1800 last night of 100.9. She is on IV antibiotics with cefepime and daptomycin. Heart rate 95-112, respiratory rate 28. Repeat chest x-ray reveals cardiomegaly with increased alveolar and interstitial edema and/or infiltrates bilaterally remain present. Possible ARDS. Hemoglobin today is at 8 status post She is continued on IV Lasix per nephrology. Potassium replaced. W BC 10.6, platelet count 276. Sodium 150, potassium 3.6, chloride 119, CO2 24, BUN 42 and creatinine 1.03. Blood sugar 140. Patient is receiving tube feedings at goal rate. REVIEW OF SYSTEMS Unable to obtain due to mental status change/intubation. PHYSICAL EXAMINATION Gen: This is a 75-year-old female. Patient is resting in ICU bed and appears to be comfortable. HEENT: Head is atraumatic, normocephalic. Pupils equal, round. Sclerae is anicteric. Patient intubated and on mechanical ventilation. NECK: Supple. No JVD. No lymphadenopathy. LUNGS: Diminished. No wheezes or rhonchi. No intercostal retractions. HEART: Regular rate and rhythm. 2/6 systolic murmur. Dressing to sternal wound. ABDOMEN: Soft. Bowel sounds are present. No masses. No tenderness. EXTREMITIES: 2+ bilat pitting edema. No calf tenderness. NEUROLOGICAL: Patient resting comfortably in bed, opens eyes, minimal movement of lower extremities. ASSESSMENT AND PLAN 1. Acute diastolic heart failure, (POA) EF 55%, mild AI and mild MR and mild TR, also complicated by severe protein calorie malnutrition, Cardiology consult appreciated. Continue Lasix 40 mg IV daily managed by nephrology. 2. Acute hypoxemic respiratory failure. (POA) Patient has underlying pulmonary hypertension as well, consult with coronary. Patient is intubated and on mechanical ventilation. Pulmonary medicine is managing. 3. Acute kidney injury secondary to ATN secondary to hypotension and cardiorenal syndrome. (POA) Patient is status post dialysis catheter placement, hemodialysis. Patient is followed closely by nephrology. 4. Hyperkalemia secondary to potassium supplementation, losartan and acute kidney injury as well as severe acidosis. (POA) Consult with nephrology appreciated. Continue medical management. 5. Metabolic acidosis secondary to acute kidney injury. (POA) 6. Metabolic encephalopathy secondary to acute kidney injury, acute heart failure, acute respiratory failure, metabolic acidosis and hyperkalemia. (POA) improving. 7. Sepsis with septic shock with multiorgan failure with metabolic encephalop athy, acute kidney injury, acute heart failure, acute respiratory failure, MSSA bacteremia. (POA) status post sternal exploration and sternal debridement on August 27, Patient is on low-dose vasopressors. 8. Sepsis with sternal wound dehiscence. (POA) Status post sternal exploration and sternal debridement on 08/27 followed by excision of sternal wound, partial sternotomy and pectoralis flap procedure on 09/03. Infectious disease consult appreciated. Antibiotics have been transitioned to cefepime and daptomycin. 9. Acute blood loss anemia, postop, status post transfusion of 3 units of pa cked RBCs. Continue to monitor. Patient is scheduled for 1 unit of packed RBCs today. 10. Hyponatremia. Continue to monitor. 11. CAD, with prior CABG performed on 08/10/2020, two-vessel, involving HOLLAND to LAD, and reverse greater saphenous vein to obtuse marginal coronary artery. Continue aspirin 325 mg daily, Plavix 75 mg daily, Toprol all 75 mg twice a day, 12. Severe protein calorie malnutrition, with anasarca and hypotension. 13. History of pulmonary fibrosis. Continue duo nebs and albuterol 14. Asthma, mild intermittent. Continue ipratropium albuterol nebulizers 15. Hyperlipidemia. Continue statin daily 16. Hypertension. Currently hypotensive 17. GI prophylaxis. Pantoprazole 18. Critical care neuropathy essentially ruled out by and neurology. 19. DVT prophylaxis: SCDs 20. Blood sugar management in a nondiabetic. insulin scale every 6 hours. 21. Acute transaminitis secondary to hypoperfusion. Prognosis guarded DISCHARGE PLAN TBD. Impression and plan of care have been directed as dictated by the signing physician. Monica Fragoso nurse practitioner acting as scribe for signing physician. Objective - Vital Signs Vital signs: Vital Signs Temp 98.2 F 09/06/20 04:00 Pulse 107 H 09/06/20 07:55 Resp 28 H 09/06/20 07:00 BP 104/45 09/06/20 07:00 Pulse Ox 95 09/06/20 07:00 Intake & Output 09/05/20 09/06/20 09/06/20 18:59 06:59 18:59 Intake Total 2629.894 1970 Output Total 905 965 Balance 5306.027 1334 Weight 93 kg Intake: IV 640 260 Cefepime 2 gm In Sodium 100 Chloride 0.9% 100 ml @ 200 mls/hr IVPB ONCE ONE Rx#:[id number] D5-0.45% NaCl with KCl 40 20Meq/l 1,000 ml @ 20 mls /hr IV .Q24H TORIBIO Rx#: [id number] DAPTOmycin 500 mg In 50 Sodium Chloride 0.9% 50 ml @ 100 mls/hr IVPB Q24HR TORIBIO Rx#:[id number] Dextrose 5% in Water 1, 200 260 000 ml @ 20 mls/hr IV . Q24H TORIBIO Rx#:[id number] Potassium Chloride 20 meq 200 In Water For Injection 1 100ml.bag @ 50 mls/hr IVPB Q2H [facility]ORIBIO Rx#: [id number] ceFAZolin 2 gm In Sodium 50 Chloride 0.9% 50 ml @ 100 mls/hr IVPB Q8HR [facility]ORIBIO Rx# :[id number] Intake, IV Titration 175.894 Amount Norepinephrine 8 mg In 175.894 Sodium Chloride 0.9% 250 ml @ 0.05 MCG/KG/MIN 8. 485 mls/hr IV .Q24H TORIBIO Rx#:[id number] Tube Feeding 594 810 Blood Product 620 Rc As-1 Unit 310 [id number] Rc As-1 Unit 310 [id number] Other 600 900 Output: Drainage 50 140 Bilateral Abdomen 20 RAHEEM #1. 10 RAHEEM #2 30 120 RAHEEM #3 10 Urine 855 825 Other: Voiding Method Indwelling Catheter Indwelling Catheter ABP, PAP, CO, CI - Last Documented Arterial Blood Pressure 124/38 - Labs CBC & Chem 7: 09/06/20 04:40 09/06/20 04:34 Labs: Abnormal Lab Results - Last 24 Hours (Table) 09/03/20 09/05/20 09/05/20 Range/Units 13:25 11:43 14:13 WBC 12.6 H (3.8-10.6) k/uL RBC 2.36 L (3.80-5.40) m/uL Hgb 6.6 L* (11.4-16.0) gm/dL Hct 21.4 L (34.0-46.0) % MCHC 30.7 L (31.0-37.0) g/dL RDW 17.7 H (11.5-15.5) % Neutrophils # 7.9 H (1.3-7.7) k/uL Eosinophils # 0.8 H (0-0.7) k/uL ABG pO2 (83-108) mmHg ABG Total CO2 (19-24) mmol/L ABG O2 Saturation (94-97) % Sodium (137-145) mmol/L Chloride (98-107) mmol/L BUN (7-17) mg/dL Creatinine (0.52-1.04) mg/dL Glucose (74-99) mg/dL POC Glucose (mg/dL) 140 H (75-99) mg/dL Calcium (8.4-10.2) mg/dL Alkaline Phosphatase (38-126) U/L Total Protein (6.3-8.2) g/dL Albumin (3.5-5.0) g/dL Crossmatch See Detail 09/05/20 09/05/20 09/05/20 Range/Units 14:13 17:13 20:51 WBC 11.7 H (3.8-10.6) k/uL RBC 2.70 L (3.80-5.40) m/uL Hgb 8.0 L (11.4-16.0) gm/dL Hct 24.4 L (34.0-46.0) % MCHC (31.0-37.0) g/dL RDW 16.9 H (11.5-15.5) % Neutrophils # (1.3-7.7) k/uL Eosinophils # (0-0.7) k/uL ABG pO2 (83-108) mmHg ABG Total CO2 (19-24) mmol/L ABG O2 Saturation (94-97) % Sodium 152 H (137-145) mmol/L Chloride 120 H (98-107) mmol/L BUN 44 H (7-17) mg/dL Creatinine 1.26 H (0.52-1.04) mg/dL Glucose 110 H (74-99) mg/dL POC Glucose (mg/dL) 144 H (75-99) mg/dL Calcium 7.9 L (8.4-10.2) mg/dL Alkaline Phosphatase 184 H (38-126) U/L Total Protein 6.1 L (6.3-8.2) g/dL Albumin 2.4 L (3.5-5.0) g/dL Crossmatch 09/05/20 09/06/20 09/06/20 Range/Units 23:34 04:23 04:34 WBC (3.8-10.6) k/uL RBC (3.80-5.40) m/uL Hgb (11.4-16.0) gm/dL Hct (34.0-46.0) % MCHC (31.0-37.0) g/dL RDW (11.5-15.5) % Neutrophils # (1.3-7.7) k/uL Eosinophils # (0-0.7) k/uL ABG pO2 114 H (83-108) mmHg ABG Total CO2 25 H (19-24) mmol/L ABG O2 Saturation 99.1 H (94-97) % Sodium 150 H (137-145) mmol/L Chloride 119 H (98-107) mmol/L BUN 42 H (7-17) mg/dL Creatinine (0.52-1.04) mg/dL Glucose 140 H (74-99) mg/dL POC Glucose (mg/dL) 133 H (75-99) mg/dL Calcium 7.8 L (8.4-10.2) mg/dL Alkaline Phosphatase 160 H (38-126) U/L Total Protein 6.0 L (6.3-8.2) g/dL Albumin 2.3 L (3.5-5.0) g/dL Crossmatch 09/06/20 09/06/20 Range/Units 04:40 05:30 WBC (3.8-10.6) k/uL RBC 2.76 L (3.80-5.40) m/uL Hgb 8.0 L (11.4-16.0) gm/dL Hct 25.0 L (34.0-46.0) % MCHC (31.0-37.0) g/dL RDW 17.2 H (11.5-15.5) % Neutrophils # (1.3-7.7) k/uL Eosinophils # 0.8 H (0-0.7) k/uL ABG pO2 (83-108) mmHg ABG Total CO2 (19-24) mmol/L ABG O2 Saturation (94-97) % Sodium (137-145) mmol/L Chloride (98-107) mmol/L BUN (7-17) mg/dL Creatinine (0.52-1.04) mg/dL Glucose (74-99) mg/dL POC Glucose (mg/dL) 140 H (75-99) mg/dL Calcium (8.4-10.2) mg/dL Alkaline Phosphatase (38-126) U/L Total Protein (6.3-8.2) g/dL Albumin (3.5-5.0) g/dL Crossmatch Microbiology - Last 24 Hours (Table) 09/04/20 00:25 Gram Stain - Final Sputum Sputum Culture - Final 09/03/20 18:02 Blood Culture - Preliminary Blood No Growth after 48 hours 09/02/20 18:52 Blood Culture - Preliminary Blood No Growth after 72 hours 09/01/20 14:40 Blood Culture - Preliminary Blood No Growth after 96 hours 08/30/20 03:56 Blood Culture - Final Blood No Growth after 144 hours
--- NOTE | 2020-09-06 11:03 | EEG ---
ELECTROENCEPHALOGRAM REPORT DATE OF SERVICE: 09/05/2020 PREAMBLE: This is a 75-year-old female, who is intubated, has altered mental status. The patient recently has developed some rhythmic head movement [id number] and some bicycling type of movement of the extremities. This study is performed to evaluate for any epileptiform activity. EEG FINDINGS: This is a 21 channel portable EEG recording on a patient utilizing 10/20 international system with referential and bipolar montages. The recording starts and continues with presence of diffuse moderate voltage delta and theta slowing in bihemispheric region. Some intermittent appearance of generalized suppression was also noted. Occasional triphasic type waves were also seen. Photic driving response was not seen. Background does not seem to be reactive to eye opening or closing. No focal or generalized epileptiform activity was seen. IMPRESSION: This is an abnormal EEG due to background slowing of at least moderate to severe degree. This is suggestive of generalized cerebral dysfunction as can be seen with toxic metabolic encephalopathy or due to diffuse structural brain abnormality. No definitive epileptiform activity was seen. MMODL / IJN: [id number] /
[2020-09-06 11:51] LABS: Glucose,Whole Blood 132 mg/dL (75-99)
[2020-09-06] MEDS: ASCORBIC ACID 500 MG TAB PO SCH (12:01)
[2020-09-06] MEDS: FERROUS SULFATE ORAL ELIXIR 300 MG/5 ML CUP PO SCH (12:01)
--- NOTE | 2020-09-06 12:46 | P.PN ---
Subjective Progress Note Date: 09/06/20 Principal diagnosis: Respiratory failure, sternal wound infection. Reevaluated today on 08/28/2020, patient remains in the ICU, intubated and mechanically ventilated. Her assist-control rate is 20, volume is 450 FiO2 is 50% PEEP was at 5 and I increased it up to 8. ABG showed a pO2 of 57 pCO2 of 30 pH of 7.53. O2 saturation on the monitor is 96%. Patient remains on norepine phrine at 0.07 mcg/kg/m, she is also on propofol at 65 mcg/kg/m. Patient is on enteral feeding. Remains on cefepime and daptomycin for her positive blood cultures/MSSA. Patient is also on Lasix at 80 mg IV push every 24 hours. Her urine output has been good. And her chest x-ray continues to show mild congestive heart failure changes. Patient has leukocytosis with WBC count 24.3, electrolytes are normal BUN is 46 creatinine 0.90. Liver enzymes are trending down slowly Patient was reevaluated today on 08/29/2020, remains intubated and mechanically ventilated. She is on assist control rate of 20 tidal volume is 450 FiO2 is 50% and PEEP of 8. ABG showed a pO2 of 56 pCO2 of 35 pH of 7.50 however her O2 saturation on the monitor is 99%. Patient remains on norepinephrine at 0.05 mcg/kg/m, he is on propofol at 70 mcg/kg/m, she is on Lasix 80 mg IV push daily, with good urine output. IV fluid mostly at KVO. Antibiotics garzon she is on cefazolin and clindamycin. Patient had MSSA in the blood and in the sternal wound. Chest x-ray continues to show evidence of pulmonary edema, and now she seems to be developing some consolidation in the right upper lobe medially. Her sternum remains open, decision regarding sternal closure will be made in the next 24-48 hours by thoracic surgery. Patient continues to have leukocytosis with WBC count of 24.2 hemoglobin is 10.6, basic metabolic profile is normal renal profile is normal not requiring any further dialysis, and she has good uri ne output responding well to diuretics. Liver enzymes seem to be trending down 08/30/2020 the patient remains intubated on a mechanical ventilator. This morning, she has an assist-control at the rate of 20 with tidal volume of 450 and the flow of 70 with a FiO2 of 50% with a PEEP of 8. The morning blood gases from today showed a pH of 7.55, and the pCO2 is a 35 with a pO2 of 72. Necessity ventilator changes were done. Peak airway pressure was 37. Static pressure was 32. Chest x-ray still showing diffuse bilateral pulmonary infiltrates consistent with pneumonia although possibility of an acute lung injury/ARDS cannot be completely excluded. ET tube is in a good location. The patient this morning is sedated with propofol which is running at 50 mcg/kg per minute. Sedation holiday was given this morning to evaluate her mental status. I was told yesterday that the patient did have some diminished level of consciousness once she was off the sedation. Nevertheless she was placed on sedation again to maintain synchrony with the mechanical ventilator. She is septic with staff aureus, MSSA has been cultured in her sputum, and her blood and in her sternal wound. Her current antibiotic coverage including a combination of nafcillin and clindamycin. She is afebrile. Sternal wound is being monitored by the cardiothoracic surgery team. Daily dressing changes are being done. There is still output which is purulent according to the nursing staff. Pressors and the patient is currently on norepinephrine running at 0.04 mcg/kg per minute. Renal function is improving and the creatinine is down to 0.78. The white cell count is at 19.8 with hemoglobin of 10.2 and a platelet count of 90. Liver function tests continue to improve with an AST of 68, ALT of 77 and the last blood culture was taken from 08/29/2020 was again positive for gram-positive bacteria most likely MSSA. The patient has orogastric tube in place and she is receiving vital high protein at a rate of 23 mL an hour. This is at goal for now. No abdominal distention. No increased residuals for now. She is afebrile. Progress note dated 08/31/2020. This is a 75-year-old female was admitted to the hospital on August 22, she came in for a sternal wound infection, and worsening respiratory status with heart failure. Unfortunately, she developed severe hypoxemic respiratory failure and required intubation on August 25. She was discovered to have a sternal wound infection and went to the operating room for debridement, on August 27. Microbiology is positive for methicillin sensitive staph aureus, and she remains on nafcillin and clindamycin. This patient initially had a two- vessel bypass grafting on 08/10/2020, and was discharged on 08/19/2020. Currently, the patient remains on the volume assist control mode, rate is 20, tidal volume is 400, FiO2 40%, and PEEP of 8. Blood gases show a PaO2 of 65, a PaCO2 39, and a pH is 7.58. His blood gases consistent with a relative hypoxemia, and a severe metabolic alkalosis. Currently, the norepinephrine has been weaned off. She remains on saline at 25 mL an hour, and she is currently not on any sedation. She's getting vital high protein at 23 mL an hour with a goal of 28 mL an hour. Today, regarding do a spontaneous breathing trial, on pressor support of 15, CPAP of 5. If the patient shows any signs of deterioration, such as tachycardia, tachypnea, hypertension, diaphoresis, higher respiratory rates, and/or lower tidal volumes, the patient will be switched back to the volume assist control mode with the. Progress note dated 09/01/2020. 75-year-old female admitted back on August 22. She came into the hospital with a sternal wound infection. In addition, she had worsening respiratory status, with heart failure. She developed reinaldo hypoxemic respiratory failure and required intubation on August 25. At that time, she was discovered to have a sternal wound infection, secondary to staph aureus, and went to the operating room for debridement. This was on August 27. Microbiology is positive for methicillin sensitive staph aureus, and she remains on nafcillin and clindamycin. The patient had a two-vessel bypass grafting done on August 10, and was discharged on August 19. Currently, she remains on the volume assist control modality, the rate of 20, tidal volume 400, FiO2 50%, and PEEP of 5. This morning's blood gases, show a PaO2 of 58, a PaCO2 of 40, and a pH is 7.61. These arterial blood gases are consistent with hypoxemia, and a severe metabolic alkalosis. The FiO2 was increased from 40-50%. Currently, she is on propofol at 20 mcg/kg/m, saline at 15 mL an hour, and vital high protein at 54 mL an hour, which is goal. Today, we are going to ensure that her potassium exceeds 4.5, DC her Lasix, and add Diamox 500 mg a day. We also increased the FiO2 earlier this morning to 50%. She will not wean with his profound metabolic alkalosis, and likely, we will hypoventilate and retain carbon dioxide, to balance out her pH. Hence, it's imperative that we treat the alkalosis aggressively. Progress note dated 09/04/2020. 75-year-old female, admitted back on August 22. She came into the hospital with a sternal wound infection. She had worsening respiratory status with heart failure, and developed reinaldo hypoxemic respiratory failure and required intubation on 08/25. At that time, she was discovered to have a sternal wound infection secondary to staph aureus, and went to the operating room on 08/27, for debridement. Microbiology was positive for methicillin sensitive staph aureus. The patient had a two-vessel bypass grafting done on 08/10/2020, and was discharged on 08/19. She remains on the mechanical ventilator. She is on the volume assist control mode, rate of 20, tidal volume 400, FiO2 50%, and a PEEP of 5. She's currently on norepinephrine at 6.1 g her minute, D5W with half-normal saline and 20 mEq of potassium at 75 mL an hour, and tube feeds are currently on hold. This morning, we put a right femoral triple-lumen catheter in, as well as a right brachial arterial line. She received both fentanyl and Nimbex for the procedure. She is also postop day #1, status post excision of sternal wound, right pectoralis major myocutaneous flap, and left pectoralis major myocutaneous flap procedure. The patient's currently reasonably stable in the intensive care unit. No plans on any weaning her extubation at this time. Current laboratory data includes a white count of 17.5, hemoglobin 7.2, hematocrit 23.4, and platelet count 328,000. Morning arterial blood gas shows a PaO2 of 98, a PaCO2 of 34, and pH is 7.48. This blood gases consistent with nor moxemia, and a mild respiratory and metabolic alkalosis. Sodium is 149, potassium is 3.8, chloride 115, CO2 26, anion gap 8, BUN 59, creatinine 1.37. Chest x-ray shows bilateral infiltrates, which could relate to either pneumonia or pulmonary edema. X-ray is unchanged. Progress note dated 09/05/2020. 75-year-old female, admitted back on 08/22. Patient came into the hospital with a sternal wound infection, and developed worsening respiratory status, with heart failure, and reinaldo hypoxemic respiratory failure, requiring intubation on 08/25. At that time, she was discovered to have a sternal wound infection, secondary to staph aureus, and went to the operating room on 08/27, for debridem ent. Microbiology was positive for methicillin sensitive staph aureus. The patient had a two-vessel bypass grafting done on 08/10/2020, and was discharged home on 08/19. Currently, the patient remains on the ventilator. She is on the volume assist control mode, rate of 20, tidal volume 400, FiO2 40%, PEEP of 5. Arterial blood gases show a PaO2 of 150, PaCO2 35, pH is 7.49. The blood gases are consistent with hyperoxia, and a mild respiratory alkalosis. The patient will have a spontaneous breathing trial today, with a PSV of 80, and CPAP of 5. She's currently getting vital high protein at 54 mL an hour which is goal, and, D5.45, with 20 of potassium, at 20 mL an hour. She is on a small dose of norepinephrine, which is 0.04 g kilogram per minute, or 3.6 mcg/m. The patient is postop day #2, status post excision of sternal wound, with a right pectoralis major myocutaneous flap, and a left pectoralis major myocutaneous flap procedure. White blood count is 13.4, hemoglobin is only 5.4, hematocrit 17.2, and platelet count 313,000. She is currently getting blood. Sodium is 152, potassium 3.6, chlorides 120, carbon dioxide 26, anion gap 6, BUN 45, and creatinine 1.2. The IVs changed from D5 0.45, to just plain dextrose. Progress note dated 09/06/2020. 75-year-old female, admitted back on 08/22/2020. The patient initially came into the hospital with a sternal wound infection, with developing and worsening respiratory failure CHF, and profound hypoxemia. The patient required intubation and mechanical ventilation on 08/25/2020. At that time, he was discovered to have a sternal wound infection secondary to Staphylococcus aureus, and went to the operating room on 08/27/2020 for debridement. Microbiology was positive for methicillin sensitive staph aureus. The patient initially had a two-vessel bypass grafting, on 08/10/2020, and was discharged home 9 days later, on 08/19/2020. The patient remains on the ventilator, on the volume assist control mode, rate of 20, tidal volume 400, FiO2 40%, to be reduced down to 35%, and a PEEP of 5. Arterial blood gases show a PaO2 of 114, PaCO2 of 35, and a pH of 7.45. These blood gases consistent with a mild respiratory alkalosis, and mild hyperoxia. The patient is getting dextrose, at 20 mL an hour, saline at 10 mL an hour, of vital high protein at 54 mL an hour, which is goal, and she will be given a spontaneous breathing trial today on pressure support of 10, and CPAP of 5. Yesterday, on PSV 8, CPAP 5, she only lasted 5 minutes with her trial. In my opinion, unless the patient starts making significant progress, she likely will be a candidate for a tracheostomy and PEG tube procedure. Today's labs sh ow a white count of 10.6, hemoglobin 8, hematocrit 25, and a platelet count of 276,000. Sodium is 150, potassium 3.6, chlorides 119, carbon dioxide 24, anion gap 7, BUN 42, and creatinine 1.03. Rest of the labs are reviewed. Chest x- rays shows cardiomegaly, with increased alveolar and interstitial edema and/or infiltrate laterally. Chest x-ray is unchanged. Objective - Vital Signs Vital signs: Vital Signs Temp 99.2 F 09/06/20 12:00 Pulse 113 H 09/06/20 12:00 Resp 37 H 09/06/20 12:00 BP 126/42 09/06/20 12:00 Pulse Ox 96 09/06/20 12:00 Intake & Output 09/05/20 09/06/20 09/06/20 18:59 06:59 18:59 Intake Total 2629.894 1970 1130 Output Total 733 827 1421 Balance 5791.421 1847 -55 Weight 93 kg Intake: IV 640 260 Cefepime 2 gm In Sodium 100 Chloride 0.9% 100 ml @ 200 mls/hr IVPB ONCE ONE Rx#:[id number] D5-0.45% NaCl with KCl 40 20Meq/l 1,000 ml @ 20 mls /hr IV .Q24H TORIBIO Rx#: [id number] DAPTOmycin 500 mg In 50 Sodium Chloride 0.9% 50 ml @ 100 mls/hr IVPB Q24HR TORIBIO Rx#:[id number] Dextrose 5% in Water 1, 200 260 000 ml @ 20 mls/hr IV . Q24H TORIBIO Rx#:[id number] Potassium Chloride 20 meq 200 In Water For Injection 1 100ml.bag @ 50 mls/hr IVPB Q2H TORIBIO Rx#: [id number] ceFAZolin 2 gm In Sodium 50 Chloride 0.9% 50 ml @ 100 mls/hr IVPB Q8HR TORIBIO Rx# :[id number] Intake, IV Titration 175.894 Amount Norepinephrine 8 mg In 175.894 Sodium Chloride 0.9% 250 ml @ 0.05 MCG/KG/MIN 8. 485 mls/hr IV .Q24H TORIBIO Rx#:[id number] Tube Feeding 594 810 270 Blood Product 620 Rc As-1 Unit 310 [id number] Rc As-1 Unit 310 [id number] Other 600 900 860 Output: Drainage 50 140 140 Bilateral Abdomen 20 RAHEEM #1. 10 20 RAHEEM #2 30 120 90 RAHEEM #3 10 15 Wound Vac 15 Urine 855 825 895 Uretheral (Yu) 160 Stool 150 Other: Voiding Method Indwelling Catheter Indwelling Catheter Indwelling Catheter ABP, PAP, CO, CI - Last Documented Arterial Blood Pressure 122/45 - Exam No acute distress, currently off sedation, responds by nodding her head. The patient appears much more stable today. HEENT examination is grossly unremarkable. Mucous membranes are moist. There is an orally placed endotracheal tube, and an orally placed nasogastric tube. Neck supple. Full range of motion. No adenopathy thyromegaly or neck vein distention. Cardiovascular examination reveals regular rhythm rate. S1-S2 normal. No S3 or S4. A soft systolic murmur is noted, grade 2/6. Heart rate is 111 bpm. Lungs reveal scattered rhonchi and crackles. Breath sounds equal bilaterally. No wheezes are appreciated. Breath sounds are diminished throughout. Exam is unchanged. Abdomen soft, bowel sounds are heard. No masses or tenderness. Extremities are intact. No cyanosis or clubbing. Mild edema is noted throu ghout. The patient does have a right brachial arterial line, and a right femoral vein triple lumen catheter. Skin reveals a dressing over the sternal wound infection.. Neurologic examination shows improved responsiveness. The patient does not her head yes or no when asked certain questions. - Labs CBC & Chem 7: 09/06/20 04:40 09/06/20 11:47 Labs: Abnormal Lab Results - Last 24 Hours (Table) 09/03/20 09/05/20 09/05/20 Range/Units 13:25 14:13 14:13 WBC 12.6 H (3.8-10.6) k/uL RBC 2.36 L (3.80-5.40) m/uL Hgb 6.6 L* (11.4-16.0) gm/dL Hct 21.4 L (34.0-46.0) % MCHC 30.7 L (31.0-37.0) g/dL RDW 17.7 H (11.5-15.5) % Neutrophils # 7.9 H (1.3-7.7) k/uL Eosinophils # 0.8 H (0-0.7) k/uL ABG pO2 (83-108) mmHg ABG Total CO2 (19-24) mmol/L ABG O2 Saturation (94-97) % Sodium 152 H (137-145) mmol/L Chloride 120 H (98-107) mmol/L BUN 44 H (7-17) mg/dL Creatinine 1.26 H (0.52-1.04) mg/dL Glucose 110 H (74-99) mg/dL POC Glucose (mg/dL) (75-99) mg/dL Calcium 7.9 L (8.4-10.2) mg/dL Alkaline Phosphatase 184 H (38-126) U/L Total Protein 6.1 L (6.3-8.2) g/dL Albumin 2.4 L (3.5-5.0) g/dL Crossmatch See Detail 09/05/20 09/05/20 09/05/20 Range/Units 17:13 20:51 23:34 WBC 11.7 H (3.8-10.6) k/uL RBC 2.70 L (3.80-5.40) m/uL Hgb 8.0 L (11.4-16.0) gm/dL Hct 24.4 L (34.0-46.0) % MCHC (31.0-37.0) g/dL RDW 16.9 H (11.5-15.5) % Neutrophils # (1.3-7.7) k/uL Eosinophils # (0-0.7) k/uL ABG pO2 (83-108) mmHg ABG Total CO2 (19-24) mmol/L ABG O2 Saturation (94-97) % Sodium (137-145) mmol/L Chloride (98-107) mmol/L BUN (7-17) mg/dL Creatinine (0.52-1.04) mg/dL Glucose (74-99) mg/dL POC Glucose (mg/dL) 144 H 133 H (75-99) mg/dL Calcium (8.4-10.2) mg/dL Alkaline Phosphatase (38-126) U/L Total Protein (6.3-8.2) g/dL Albumin (3.5-5.0) g/dL Crossmatch 09/06/20 09/06/20 09/06/20 Range/Units 04:23 04:34 04:40 WBC (3.8-10.6) k/uL RBC 2.76 L (3.80-5.40) m/uL Hgb 8.0 L (11.4-16.0) gm/dL Hct 25.0 L (34.0-46.0) % MCHC (31.0-37.0) g/dL RDW 17.2 H (11.5-15.5) % Neutrophils # (1.3-7.7) k/uL Eosinophils # 0.8 H (0-0.7) k/uL ABG pO2 114 H (83-108) mmHg ABG Total CO2 25 H (19-24) mmol/L ABG O2 Saturation 99.1 H (94-97) % Sodium 150 H (137-145) mmol/L Chloride 119 H (98-107) mmol/L BUN 42 H (7-17) mg/dL Creatinine (0.52-1.04) mg/dL Glucose 140 H (74-99) mg/dL POC Glucose (mg/dL) (75-99) mg/dL Calcium 7.8 L (8.4-10.2) mg/dL Alkaline Phosphatase 160 H (38-126) U/L Total Protein 6.0 L (6.3-8.2) g/dL Albumin 2.3 L (3.5-5.0) g/dL Crossmatch 09/06/20 09/06/20 Range/Units 05:30 11:50 WBC (3.8-10.6) k/uL RBC (3.80-5.40) m/uL Hgb (11.4-16.0) gm/dL Hct (34.0-46.0) % MCHC (31.0-37.0) g/dL RDW (11.5-15.5) % Neutrophils # (1.3-7.7) k/uL Eosinophils # (0-0.7) k/uL ABG pO2 (83-108) mmHg ABG Total CO2 (19-24) mmol/L ABG O2 Saturation (94-97) % Sodium (137-145) mmol/L Chloride (98-107) mmol/L BUN (7-17) mg/dL Creatinine (0.52-1.04) mg/dL Glucose (74-99) mg/dL POC Glucose (mg/dL) 140 H 132 H (75-99) mg/dL Calcium (8.4-10.2) mg/dL Alkaline Phosphatase (38-126) U/L Total Protein (6.3-8.2) g/dL Albumin (3.5-5.0) g/dL Crossmatch Microbiology - Last 24 Hours (Table) 09/04/20 00:25 Gram Stain - Final Sputum Sputum Culture - Final 09/03/20 18:02 Blood Culture - Preliminary Blood No Growth after 48 hours 09/02/20 18:52 Blood Culture - Preliminary Blood No Growth after 72 hours 09/01/20 14:40 Blood Culture - Preliminary Blood No Growth after 96 hours Assessment and Plan Assessment: Acute hypoxemic and hypercapnic respiratory failure, secondary to incisional wound infection, with methicillin sensitive staph aureus, as well as pneumonia, and bilateral pleural effusions. Postop day #3, status post excision of sternal wound, right pectoralis major myocutaneous flap, and left pectoralis major myocutaneous flap. Status post readmission on August 22, and intubation for respiratory failure on February 16. Sepsis, secondary to sternal wound infection, caused by methicillin sensitive staph aureus, with bacteremia. Septic shock, secondary to sternal wound infection. Acute kidney injury, requiring a brief period of hemodialysis. Acute metabolic acidosis, secondary to acute kidney injury. Acute diastolic CHF with bilateral pleural effusions. History of hypertension. History of cervical stenosis. Primary history of tobacco use. Mild pulmonary fibrosis/interstitial lung disease. Status post sternal exploration with sternal debridement, August 27. Recent prior history of two-vessel bypass grafting, on August 10, with discharge on August 19. Hypernatremia, currently being addressed by nephrology. Plan: Plan dated 09/06/2020. The patient will get another spontaneous breathing trial today, on pressure support of 10 and CPAP of 5. Yesterday, she did not do so well. In addition, we reduce the FiO2 down from 40% down to 35%. Arterial blood gases show a mild respiratory alkalosis. She remains on vital high protein at goal. In addition, free water flushes or increase to address the issue of hypernatremia. Being fo llowed and treated by nephrology. We will continue to follow the patient on the daily basis and make recommendations were appropriate. Overall prognosis remains guarded. In the end, the patient may end up with a tracheostomy tube. Time with Patient: Greater than 30
[2020-09-06] MEDS: NOREPINEPHRINE 8 MG in SODIUM CHLORIDE 0.9% 250 ML IV SCH (16:06)
--- NOTE | 2020-09-06 16:18 | P.PN ---
Subjective Progress Note Date: 09/06/20 Patient was seen for a follow-up. Patient is still intubated. Patient just received fentanyl 25 g just 5 minutes prior to my arrival. Now she is asleep. Patient still not able to tolerate pressure supports. She starts breathing fast. Per ICU team, patient has started moving her hands, and wiggling her feet when sedation is decreased. At present I did not see any, probably due to sedation. Objective - Vital Signs Vital signs: Vital Signs Temp 100.1 F H 09/06/20 16:00 Pulse 118 H 09/06/20 16:00 Resp 24 09/06/20 16:00 BP 139/62 09/06/20 16:00 Pulse Ox 96 09/06/20 16:00 Intake & Output 09/05/20 09/06/20 09/06/20 18:59 06:59 18:59 Intake Total 2629.894 1970 1746 Output Total 509 818 9988 Balance 0862.951 2465 86 Weight 93 kg Intake: IV 640 260 Cefepime 2 gm In Sodium 100 Chloride 0.9% 100 ml @ 200 mls/hr IVPB ONCE ONE Rx#:[id number] D5-0.45% NaCl with KCl 40 20Meq/l 1,000 ml @ 20 mls /hr IV .Q24H TORIBIO Rx#: [id number] DAPTOmycin 500 mg In 50 Sodium Chloride 0.9% 50 ml @ 100 mls/hr IVPB Q24HR [facility]IO Rx#:[id number] Dextrose 5% in Water 1, 200 260 000 ml @ 20 mls/hr IV . Q24H [facility]IO Rx#:[id number] Potassium Chloride 20 meq 200 In Water For Injection 1 100ml.bag @ 50 mls/hr IVPB Q2H [facility] Rx#: [id number] ceFAZolin 2 gm In Sodium 50 Chloride 0.9% 50 ml @ 100 mls/hr IVPB Q8HR [facility] Rx# :[id number] Intake, IV Titration 175.894 Amount Norepinephrine 8 mg In 175.894 Sodium Chloride 0.9% 250 ml @ 0.05 MCG/KG/MIN 8. 485 mls/hr IV .Q24H [facility]ORIBIO Rx#:[id number] Tube Feeding 594 810 486 Blood Product 620 Rc As-1 Unit 310 [id number] Rc As-1 Unit 310 [id number] Other 953 462 2848 Output: Drainage 50 140 165 Bilateral Abdomen 20 RAHEEM #1. 10 20 RAHEEM #2 30 120 115 RAHEEM #3 10 15 Wound Vac 15 Urine 632 860 8773 Uretheral (Yu) 260 Stool 150 Other: Voiding Method Indwelling Catheter Indwelling Catheter Indwelling Catheter ABP, PAP, CO, CI - Last Documented Arterial Blood Pressure 131/49 - Exam 09/06/2020: Patient asleep, sedated, therefore detailed examination deferred. 09/05/2020: On examination patient is awake, opens her eyes, , sometimes tracks, the times not. Patient again smiled slightly to asking her to smile. Otherwise did not answer or nodded if she has pain anywhere, did not follow any commands r egarding extremities. Very slight movement to painful stim with us on the right foot but not in the other 3 extremities. Patient was noted to have some rhythmic head movement [id number] and then she would have low amplitude slow bicycling type of activity in the arms and legs. No twitching, but was consistent for some time. Patient not even responding to her for following commands except for that she did turn her head and made eye contact with her . Did not tell if she is in pain anywhere. Her pupils are round and reacting. Visual lópez could not be tested. Face appears symmetric. She is on ventilator. No movement in the 4 extremities except for some rhythmic movement as above. - Labs CBC & Chem 7: 09/06/20 04:40 09/06/20 11:47 Labs: Abnormal Lab Results - Last 24 Hours (Table) 09/03/20 09/05/20 09/05/20 Range/Units 13:25 17:13 20:51 WBC 11.7 H (3.8-10.6) k/uL RBC 2.70 L (3.80-5.40) m/uL Hgb 8.0 L (11.4-16.0) gm/dL Hct 24.4 L (34.0-46.0) % RDW 16.9 H (11.5-15.5) % Eosinophils # (0-0.7) k/uL ABG pO2 (83-108) mmHg ABG Total CO2 (19-24) mmol/L ABG O2 Saturation (94-97) % Sodium (137-145) mmol/L Chloride (98-107) mmol/L BUN (7-17) mg/dL Glucose (74-99) mg/dL POC Glucose (mg/dL) 144 H (75-99) mg/dL Calcium (8.4-10.2) mg/dL Alkaline Phosphatase (38-126) U/L Total Protein (6.3-8.2) g/dL Albumin (3.5-5.0) g/dL Crossmatch See Detail 09/05/20 09/06/20 09/06/20 Range/Units 23:34 04:23 04:34 WBC (3.8-10.6) k/uL RBC (3.80-5.40) m/uL Hgb (11.4-16.0) gm/dL Hct (34.0-46.0) % RDW (11.5-15.5) % Eosinophils # (0-0.7) k/uL ABG pO2 114 H (83-108) mmHg ABG Total CO2 25 H (19-24) mmol/L ABG O2 Saturation 99.1 H (94-97) % Sodium 150 H (137-145) mmol/L Chloride 119 H (98-107) mmol/L BUN 42 H (7-17) mg/dL Glucose 140 H (74-99) mg/dL POC Glucose (mg/dL) 133 H (75-99) mg/dL Calcium 7.8 L (8.4-10.2) mg/dL Alkaline Phosphatase 160 H (38-126) U/L Total Protein 6.0 L (6.3-8.2) g/dL Albumin 2.3 L (3.5-5.0) g/dL Crossmatch 09/06/20 09/06/20 09/06/20 Range/Units 04:40 05:30 11:50 WBC (3.8-10.6) k/uL RBC 2.76 L (3.80-5.40) m/uL Hgb 8.0 L (11.4-16.0) gm/dL Hct 25.0 L (34.0-46.0) % RDW 17.2 H (11.5-15.5) % Eosinophils # 0.8 H (0-0.7) k/uL ABG pO2 (83-108) mmHg ABG Total CO2 (19-24) mmol/L ABG O2 Saturation (94-97) % Sodium (137-145) mmol/L Chloride (98-107) mmol/L BUN (7-17) mg/dL Glucose (74-99) mg/dL POC Glucose (mg/dL) 140 H 132 H (75-99) mg/dL Calcium (8.4-10.2) mg/dL Alkaline Phosphatase (38-126) U/L Total Protein (6.3-8.2) g/dL Albumin (3.5-5.0) g/dL Crossmatch Microbiology - Last 24 Hours (Table) 09/04/20 00:25 Gram Stain - Final Sputum Sputum Culture - Final 09/03/20 18:02 Blood Culture - Preliminary Blood No Growth after 48 hours 09/02/20 18:52 Blood Culture - Preliminary Blood No Growth after 72 hours 09/01/20 14:40 Blood Culture - Preliminary Blood No Growth after 96 hours Assessment and Plan Assessment: * New onset quadriplegia, unclear etiology. Rule out critical illness myopathy, rule out spinal cord involvement like epidural abscess. CT of the cervical spine showed no evidence of discitis osteomyelitis. 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 Improved. Blood cultures negative since 09/01/2020. * Status post CABG, followed by wound infection, requiring sternal debridement with persistent sepsis. Status post placement of muscle flap. * Septic shock with MSSA * Acute kidney injury * Acute transaminitis * CHF * Hypertension * History of cervical fusion, spinal stenosis in the past. Plan: * Patient underwent EEG testing yesterday, which was abnormal due to background slowing of moderate to severe degree. This is suggestive of generalized cerebral dysfunction as can be seen with toxic metabolic encephalopathy or related to diffuse structural brain abnormality. No epileptiform activity was seen. No indication for antiepileptic medication. * Patient has quadriplegia, but apparently has started showing some improvement her nurse report. Continue close observation. * Patient continues to be encephalopathic, due to toxic metabolic encephalopathy. * Appreciate Orthopedic spine input. Hardware in the cervical spine is stable. No loosening. * CPK 74, TSH 1.87, aldolase 8.4 (1.2 to 7.6). * Anemia, improved. CT abdomen and pelvis negative. * Dr. Samy Guadalupe Will resume neurology service in the morning.
[2020-09-06 17:29] LABS: Glucose,Whole Blood 123 mg/dL (75-99)
[2020-09-06 23:31] LABS: Glucose,Whole Blood 117 mg/dL (75-99)
[2020-09-07] MEDS: IPRATROPIUM-ALBUTEROL 3 ML NEB INHALATION SCH ×7 (00:39→23:34)
[2020-09-07] MEDS: fentaNYL (PF) 50 MCG/ML 2 ML AMP IVP PRN ×5 (01:28→23:24)
[2020-09-07] MEDS: ACETAMINOPHEN TAB 325 MG TAB PO PRN (04:14)
[2020-09-07 05:23] LABS: Anisocytosis Slight; Basophils # (A) 0.1 k/uL (0-0.2); Basophils % (A) 1 %; Eosinophils # (A) 0.6 k/uL (0-0.7); Eosinophils % (A) 5 %; HCT 26.3 % (34.0-46.0); HGB 8.5 gm/dL (11.4-16.0); Hypochromasia Slight; Lymphocytes # (A) 3.1 k/uL (1.0-4.8); Lymphocytes % (A) 26 %; MCHC 32.3 g/dL (31.0-37.0); Mean Platelet Volume 10.5; Monocytes # (A) 0.4 k/uL (0-1.0); Monocytes % (A) 3 %; Neutrophils # (A) 7.5 k/uL (1.3-7.7); Neutrophils % (A) 63 %; Platelet Count 347 k/uL (150-450); Poikilocytosis Slight; RBC 2.93 m/uL (3.80-5.40); WBC 11.8 k/uL (3.8-10.6)
[2020-09-07 05:33] LABS: Albumin 2.4 g/dL (3.5-5.0); Calcium 8.2 mg/dL (8.4-10.2); Potassium 3.7 mmol/L (3.5-5.1); Total Bilirubin 1.5 mg/dL (0.2-1.3); Total Protein 6.3 g/dL (6.3-8.2)
[2020-09-07 05:34] LABS: ABG Base Excess 1.6 mmol/L; ABG HCO3 25 mmol/L (21-25); ABG Oxygen Saturation 98.8 % (94-97); ABG PCO2 32 mmHg (35-45); ABG PO2 91 mmHg (83-108); ABG TCO2 26 mmol/L (19-24); Allen Test Performed? Yes
[2020-09-07 05:50] LABS: Glucose,Whole Blood 113 mg/dL (75-99)
[2020-09-07] MEDS ORDERED: POTASSIUM BICARBONATE/CIT AC 20 MEQ TABLET.EFF NG-TUBE SCH (06:00)
[2020-09-07] MEDS: INSULIN ASPART (NovoLOG) 100 UNIT/ML VIAL SQ SCH ×4 (06:03→23:23)
--- NOTE | 2020-09-07 06:11 | PN ---
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 INTERVAL HISTORY: Patient is currently afebrile. The patient is breathing comfortably. Currently on the vent. The patient is slightly awake, does open eyes to name. She is hemodynamically stable not on pressor support and no worsening diarrhea per the nursing staff. PHYSICAL EXAMINATION: Her blood pressure is 146/70 with a pulse of 90, temperature 98. She is 99% on 40% FiO2. General description is an elderly female intubated on the vent. Respiratory system: Unlabored breathing, decreased breath sounds at the base. No wheeze. HEART: S1, S2. Regular rate and rhythm. ABDOMEN: Soft, no tenderness. LABS: Hemoglobin is 8, white count 10.6, BUN of 42, creatinine 1.03. The patient did have a CT of abdomen and pelvis completed yesterday and did not show any evidence of retroperitoneal hematoma. Blood culture repeat has been negative. Repeat sputum is negative. 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 The patient's repeat blood culture came back negative. However, the patient did have persistent fever and elevated white count with overall resolution of symptoms after antibiotic switched over to cefepime and daptomycin which will be continued and we will monitor clinical course closely. MMODL / IJN: [id number] /
--- NOTE | 2020-09-07 07:39 | P.PN ---
Subjective Progress Note Date: 09/07/20 wound infection. Reevaluated today on 08/28/2020, patient remains in the ICU, intubated and mechanically ventilated. Her assist-control rate is 20, volume is 450 FiO2 is 50% PEEP was at 5 and I increased it up to 8. ABG showed a pO2 of 57 pCO2 of 30 pH of 7.53. O2 saturation on the monitor is 96%. Patient remains on norepinephrine at 0.07 mcg/kg/m, she is also on propofol at 65 mcg/kg/m. Patient is on enteral feeding. Remains on cefepime and daptomycin for her positive blood cultures/MSSA. Patient is also on Lasix at 80 mg IV push every 24 hours. Her urine output has been good. And her chest x-ray continues to show mild congestive heart failure changes. Patient has leukocytosis with WBC count 24.3, electrolytes are normal BUN is 46 creatinine 0.90. Liver enzymes are trending down slowly Patient was reevaluated today on 08/29/2020, remains intubated and mechanically ventilated. She is on assist control rate of 20 tidal volume is 450 FiO2 is 50% and PEEP of 8. ABG showed a pO2 of 56 pCO2 of 35 pH of 7.50 however her O2 saturation on the monitor is 99%. Patient remains on norepinephrine at 0.05 mcg/kg/m, he is on propofol at 70 mcg/kg/m, she is on Lasix 80 mg IV push daily, with good urine output. IV fluid mostly at KVO. Antibiotics garzon she is on cefazolin and clindamycin. Patient had MSSA in the blood and in the sternal wound. Chest x-ray continues to show evidence of pulmonary edema, and now she seems to be developing some consolidation in the right upper lobe medially. Her sternum remains open, decision regarding sternal closure will be made in the next 24-48 hours by thoracic surgery. Patient continues to have leukocytosis with WBC count of 24.2 hemoglobin is 10.6, basic metabolic profile is normal renal profile is normal not requiring any further dialysis, and she has good urine output responding well to diuretics. Liver enzymes seem to be trending d own 08/30/2020 the patient remains intubated on a mechanical ventilator. This morning, she has an assist-control at the rate of 20 with tidal volume of 450 and the flow of 70 with a FiO2 of 50% with a PEEP of 8. The morning blood gases from today showed a pH of 7.55, and the pCO2 is a 35 with a pO2 of 72. Necessity ventilator changes were done. Peak airway pressure was 37. Static pressure was 32. Chest x-ray still showing diffuse bilateral pulmonary infiltrates consistent with pneumonia although possibility of an acute lung injury/ARDS cannot be completely excluded. ET tube is in a good location. The patient this morning is sedated with propofol which is running at 50 mcg/kg per minute. Sedation holiday was given this morning to evaluate her mental status. I was told yesterday that the patient did have some diminished level of consciousness once she was off the sedation. Nevertheless she was placed on sedation again to maintain synchrony with the mechanical ventilator. She is septic with staff aureus, MSSA has been cultured in her sputum, and her blood and in her sternal wound. Her current antibiotic coverage including a combination of nafcillin and clindamycin. She is afebrile. Sternal wound is being monitored by the cardiothoracic surgery team. Daily dressing changes are being done. There is still output which is purulent according to the nursing staff. Pressors and the patient is currently on norepinephrine running at 0.04 mcg/kg per minute. Renal function is improving and the creatinine is down to 0.78. The white cell count is at 19.8 with hemoglobin of 10.2 and a platelet count of 90. Liver function tests continue to improve with an AST of 68, ALT of 77 and the last blood culture was taken from 08/29/2020 was again positive for gram-positive bacteria most likely MSSA. The patient has orogastric tube in place and she is receiving vital high protein at a rate of 23 mL an hour. This is at goal for now. No abdominal distention. No increased residuals for now. She is afebrile. Progress note dated 08/31/2020. This is a 75-year-old female was admitted to the hospital on August 22, she came in for a sternal wound infection, and worsening respiratory status with heart failure. Unfortunately, she developed severe hypoxemic respiratory failure and required intubation on August 25. She was discovered to have a sternal wound infection and went to the operating room for debridement, on August 27. Microbiology is positive for methicillin sensitive staph aureus, and she remains on nafcillin and clindamycin. This patient initially had a two- vessel bypass grafting on 08/10/2020, and was discharged on 08/19/2020. Currently, the patient remains on the volume assist control mode, rate is 20, tidal volume is 400, FiO2 40%, and PEEP of 8. Blood gases show a PaO2 of 65, a PaCO2 39, and a pH is 7.58. His blood gases consistent with a relative hypoxemia, and a severe metabolic alkalosis. Currently, the norepinephrine has been weaned off. She remains on saline at 25 mL an hour, and she is currently not on any sedation. She's getting vital high protein at 23 mL an hour with a goal of 28 mL an hour. Today, regarding do a spontaneous breathing trial, on pressor support of 15, CPAP of 5. If the patient shows any signs of deterioration, such as tachycardia, tachypnea, hypertension, diaphoresis, higher respiratory rates, and/or lower tidal volumes, the patient will be switched back to the volume assist control mode with the. Progress note dated 09/01/2020. 75-year-old female admitted back on August 22. She came into the hospital with a sternal wound infection. In addition, she had worsening respiratory status, with heart failure. She developed reinaldo hypoxemic respiratory failure and required intubation on August 25. At that time, she was discovered to have a sternal wound infection, secondary to staph aureus, and went to the operating room for debridement. This was on August 27. Microbiology is p ositive for methicillin sensitive staph aureus, and she remains on nafcillin and clindamycin. The patient had a two-vessel bypass grafting done on August 10, and was discharged on August 19. Currently, she remains on the volume assist control modality, the rate of 20, tidal volume 400, FiO2 50%, and PEEP of 5. This morning's blood gases, show a PaO2 of 58, a PaCO2 of 40, and a pH is 7.61. These arterial blood gases are consistent with hypoxemia, and a severe metabolic alkalosis. The FiO2 was increased from 40-50%. Currently, she is on propofol at 20 mcg/kg/m, saline at 15 mL an hour, and vital high protein at 54 mL an hour, which is goal. Today, we are going to ensure that her potassium exceeds 4.5, DC her Lasix, and add Diamox 500 mg a day. We also increased the FiO2 earlier this morning to 50%. She will not wean with his profound metabolic alkalosis, and likely, we will hypoventilate and retain carbon dioxide, to balance out her pH. Hence, it's imperative that we treat the alkalosis aggressively. Progress note dated 09/04/2020. 75-year-old female, admitted back on August 22. She came into the hospital with a sternal wound infection. She had worsening respiratory status with heart failure, and developed reinaldo hypoxemic respiratory failure and required intubati on on 08/25. At that time, she was discovered to have a sternal wound infection secondary to staph aureus, and went to the operating room on 08/27, for debridement. Microbiology was positive for methicillin sensitive staph aureus. The patient had a two-vessel bypass grafting done on 08/10/2020, and was discharged on 08/19. She remains on the mechanical ventilator. She is on the volume assist control mode, rate of 20, tidal volume 400, FiO2 50%, and a PEEP of 5. She's currently on norepinephrine at 6.1 g her minute, D5W with half- normal saline and 20 mEq of potassium at 75 mL an hour, and tube feeds are currently on hold. This morning, we put a right femoral triple-lumen catheter in, as well as a right brachial arterial line. She received both fentanyl and Nimbex for the procedure. She is also postop day #1, status post excision of sternal wound, right pectoralis major myocutaneous flap, and left pectoralis major myocutaneous flap procedure. The patient's currently reasonably stable in the intensive care unit. No plans on any weaning her extubation at this time. Current laboratory data includes a white count of 17.5, hemoglobin 7.2, hematocrit 23.4, and platelet count 328,000. Morning arterial blood gas shows a PaO2 of 98, a PaCO2 of 34, and pH is 7.48. This blood gases consistent with normoxemia, and a mild respiratory and metabolic alkalosis. Sodium is 149, pot assium is 3.8, chloride 115, CO2 26, anion gap 8, BUN 59, creatinine 1.37. Chest x-ray shows bilateral infiltrates, which could relate to either pneumonia or pulmonary edema. X-ray is unchanged. Progress note dated 09/05/2020. 75-year-old female, admitted back on 08/22. Patient came into the hospital with a sternal wound infection, and developed worsening respiratory status, with heart failure, and reinaldo hypoxemic respiratory failure, requiring intubation on 08/25. At that time, she was discovered to have a sternal wound infection, secondary to staph aureus, and went to the operating room on 08/27, for debridement. Microbiology was positive for methicillin sensitive staph aureus. The patient had a two-vessel bypass grafting done on 08/10/2020, and was discharged home on 08/19. Currently, the patient remains on the ventilator. She is on the volume assist control mode, rate of 20, tidal volume 400, FiO2 40%, PEEP of 5. Arterial blood gases show a PaO2 of 150, PaCO2 35, pH is 7.49. The blood gases are consistent with hyperoxia, and a mild respiratory alkalosis. The patient will have a spontaneous breathing trial today, with a PSV of 80, and CPAP of 5. She's currently getting vital high protein at 54 mL an hour which is goal, and, D5.45, with 20 of potassium, at 20 mL an hour. She is on a small dose of norepinephrine, which is 0.04 g kilogram per minute, or 3.6 mcg/ m. The patient is postop day #2, status post excision of sternal wound, with a right pectoralis major myocutaneous flap, and a left pectoralis major myocutaneous flap procedure. White blood count is 13.4, hemoglobin is only 5.4, hematocrit 17.2, and platelet count 313,000. She is currently getting blood. Sodium is 152, potassium 3.6, chlorides 120, carbon dioxide 26, anion gap 6, BUN 45, and creatinine 1.2. The IVs changed from D5 0.45, to just plain dextrose. Progress note dated 09/06/2020. 75-year-old female, admitted back on 08/22/2020. The patient initially came into the hospital with a sternal wound infection, with developing and worsening respiratory failure CHF, and profound hypoxemia. The patient required intubation and mechanical ventilation on 08/25/2020. At that time, he was discovered to have a sternal wound infection secondary to Staphylococcus aureus, and went to the operating room on 08/27/2020 for debridement. Microbiology was positive for methicillin sensitive staph aureus. The patient initially had a two-vessel bypass grafting, on 08/10/2020, and was discharged home 9 days later, on 08/19/2020. The patient remains on the ventilator, on the volume assist control mode, rate of 20, tidal volume 400, FiO2 40%, to be reduced down to 35%, and a PEEP of 5. Arterial blood gases show a PaO2 of 114, PaCO2 of 35, and a pH of 7.45. These blood gases consistent with a mild respiratory alkalosis, and mild hyperoxia. The patient is getting dextrose, at 20 mL an hour, saline at 10 mL an hour, of vital high protein at 54 mL an hour, which is goal, and she will be given a spontaneous breathing trial today on pressure support of 10, and CPAP of 5. Yesterday, on PSV 8, CPAP 5, she only lasted 5 minutes with her trial. In my opinion, unless the patient starts making significant progress, she likely will be a candidate for a tracheostomy and PEG tube procedure. Today's labs show a white count of 10.6, hemoglobin 8, hematocrit 25, and a platelet count of 276,000. Sodium is 150, potassium 3.6, chlorides 119, carbon dioxide 24, anion gap 7, BUN 42, and creatinine 1.03. Rest of the labs are reviewed. Chest x- rays shows cardiomegaly, with increased alveolar and interstitial edema and/or infiltrate laterally. Chest x-ray is unchanged. on 09/07/2020 the patient is being seen for a follow-up. The patient is off sedation and she is wide awake and following commands and answering questions appropriately while her being intubated on a mechanical ventilator. She is still profoundly weak. She can wiggle her toes and fingers. She is unable to raise her arms against gravity.. As such the patient is profoundly weak. She does have normal reflexes in all 4 extremities as such I think this is a myopathy rather than a underlying neuropathy processes underlying her weakness. There was a concern of epidural abscess/discitis. CAT scan of the cervical spine showed no evidence of any abnormalities and the patient was seen by neurology. EEG done earlier showed background slowing and moderate to severe degree of slowing suggestive of diffuse cerebral dysfunction/metabolic encephalopathy. No seizure activity was noted. The hardware and the cervical spine has been stable. No loosening.She was on a mechanical ventilator. Earlier this morning she was assist control mode at a tidal volume of 400 with a FiO2 of 35% with a PEEP of 5. I switched her to a pressure support of 8 and a PEEP of 5 with an FiO2 of 35%. Her med ventilation still elevated at 13.5 L per minute. She is able to generate a tidal volume of 3 80 mL and the respiratory rate is around 33. Despite her tachypnea, she states that she is breathing comfortably. Surgical wound site over the sternum is dry clean and intact. The patient has 3 separate RAHEEM drains and output is serosanguineous at this point in time. She has a fecal management system in place with output being minimal. The patient is receiving enteral feeding via a G-tube and she is on vital high protein at the rate of 54 mL an hour and the patient is also receiving free water supplements 400 mL every 4 hours. Her sodium level is down to 148. She is also on D5 water running at 20 mL an hour. She is afebrile. Antibiotic coverage has included a combination of cefepime and daptomycin. No fever. Most recent blood cultures From 09/01/2020 and 09/02/2020 and 09/03/2020 were all negative and a sputum culture from 09/04/2020 was also negative. The chest x- ray showing some bilateral pulmonary infiltrates.. The patient is awake. She has a adequate cough at this point in time. Objective - Vital Signs Vital signs: Vital Signs Temp 99.3 F 09/07/20 04:00 Pulse 112 H 09/07/20 05:30 Resp 12 09/07/20 05:30 BP 135/68 09/07/20 05:30 Pulse Ox 98 09/07/20 05:30 Intake & Output 09/06/20 09/07/20 09/07/20 18:59 06:59 18:59 Intake Total 1854 2048 Output Total 1960 1005 Balance -106 1043 Weight 88.7 kg Intake: IV 200 Dextrose 5% in Water 1, 200 000 ml @ 20 mls/hr IV . Q24H [facility] Rx#:[id number] Tube Feeding 594 648 Other 1260 1200 Output: Drainage 165 130 RAHEEM #1. 20 0 RAHEEM #2 115 130 RAHEEM #3 15 0 Wound Vac 15 Urine 1595 825 Uretheral (Yu) 260 Stool 200 50 Other: Voiding Method Indwelling Catheter Indwelling Catheter ABP, PAP, CO, CI - Last Documented Arterial Blood Pressure 112/39 - Exam No acute distress, currently off sedation, responds by nodding her head. The patient appears much more stable today. HEENT examination is grossly unremarkable. Mucous membranes are moist. There is an orally placed endotracheal tube, and an orally placed nasogastric tube. Neck supple. Full range of motion. No adenopathy thyromegaly or neck vein distention. Cardiovascular examination reveals regular rhythm rate. S1-S2 normal. No S3 or S4. A soft systolic murmur is noted, grade 2/6. Lungs reveal scattered rhonchi and crackles. Breath sounds equal bilaterally. No wheezes are appreciated. Breath sounds are diminished throughout. Exam is u nchanged. Abdomen soft, bowel sounds are heard. No masses or tenderness. Extremities are intact. No cyanosis or clubbing. Mild edema is noted throughout. The patient does have a right brachial arterial line, and a right femoral vein triple lumen catheter. Skin reveals a dressing over the sternal wound infection.. The RAHEEM drains are all in place and output of serosanguineous at this point in time. Neurologic examination shows improved responsiveness. The patient does not her head yes or no when asked certain questions. She does have profound motor weakness in all 4 extremities and the patient has adequate reflexes in both extremities. No hyperreflexia. No hyperreflexia. The patient is awake off sedation she is following some simple commands. - Labs CBC & Chem 7: 09/07/20 05:15 09/07/20 05:15 Labs: Abnormal Lab Results - Last 24 Hours (Table) 09/06/20 09/06/20 09/06/20 Range/Units 11:50 17:27 23:29 WBC (3.8-10.6) k/uL RBC (3.80-5.40) m/uL Hgb (11.4-16.0) gm/dL Hct (34.0-46.0) % RDW (11.5-15.5) % ABG pH (7.35-7.45) ABG pCO2 (35-45) mmHg ABG Total CO2 (19-24) mmol/L ABG O2 Saturation (94-97) % Sodium (137-145) mmol/L Chloride (98-107) mmol/L BUN (7-17) mg/dL Glucose (74-99) mg/dL POC Glucose (mg/dL) 132 H 123 H 117 H (75-99) mg/dL Calcium (8.4-10.2) mg/dL Total Bilirubin (0.2-1.3) mg/dL AST (14-36) U/L Alkaline Phosphatase (38-126) U/L Albumin (3.5-5.0) g/dL 09/07/20 09/07/20 09/07/20 Range/Units 05:15 05:15 05:30 WBC 11.8 H (3.8-10.6) k/uL RBC 2.93 L (3.80-5.40) m/uL Hgb 8.5 L (11.4-16.0) gm/dL Hct 26.3 L (34.0-46.0) % RDW 17.0 H (11.5-15.5) % ABG pH 7.50 H (7.35-7.45) ABG pCO2 32 L (35-45) mmHg ABG Total CO2 26 H (19-24) mmol/L ABG O2 Saturation 98.8 H (94-97) % Sodium 148 H (137-145) mmol/L Chloride 117 H (98-107) mmol/L BUN 38 H (7-17) mg/dL Glucose 112 H (74-99) mg/dL POC Glucose (mg/dL) (75-99) mg/dL Calcium 8.2 L (8.4-10.2) mg/dL Total Bilirubin 1.5 H (0.2-1.3) mg/dL AST 41 H (14-36) U/L Alkaline Phosphatase 181 H (38-126) U/L Albumin 2.4 L (3.5-5.0) g/dL 09/07/20 Range/Units 05:49 WBC (3.8-10.6) k/uL RBC (3.80-5.40) m/uL Hgb (11.4-16.0) gm/dL Hct (34.0-46.0) % RDW (11.5-15.5) % ABG pH (7.35-7.45) ABG pCO2 (35-45) mmHg ABG Total CO2 (19-24) mmol/L ABG O2 Saturation (94-97) % Sodium (137-145) mmol/L Chloride (98-107) mmol/L BUN (7-17) mg/dL Glucose (74-99) mg/dL POC Glucose (mg/dL) 113 H (75-99) mg/dL Calcium (8.4-10.2) mg/dL Total Bilirubin (0.2-1.3) mg/dL AST (14-36) U/L Alkaline Phosphatase (38-126) U/L Albumin (3.5-5.0) g/dL Microbiology - Last 24 Hours (Table) 09/03/20 18:02 Blood Culture - Preliminary Blood No Growth after 72 hours 09/02/20 18:52 Blood Culture - Preliminary Blood No Growth after 96 hours 09/01/20 14:40 Blood Culture - Preliminary Blood No Growth after 120 hours 09/04/20 00:25 Gram Stain - Final Sputum Sputum Culture - Final Assessment and Plan Plan: 1 Acute hypoxemic and hypercapnic respiratory failure, secondary to incisional wound infection, with methicillin sensitive staph aureus, as well as pneumonia, and bilateral pleural effusions. The follow-up cultures as of 09/02/2020 were all negative and the patient remains on a combination of cefepime and daptomycin for now. Chest x-ray findings are stable with bilateral pulmonary infiltrates and interstitial infiltrates and small effusions. The patient is currently undergoing a has breathing trial a pressure support of 8 and a PEEP of 5. Major issue again is weaning this patient off the mechanical ventilator is her profound motor weakness. 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 2 Postop day #4, status post excision of sternal wound, right pectoralis major myocutaneous flap, and left pectoralis major myocutaneous flap. 3 Status post readmission on August 22, and intubation for respiratory failure on 08/25/2020 4 Sepsis, secondary to sternal wound infection, caused by methicillin sensitive staph aureus, with bacteremia. Repeat cultures are all negative and the patient remains on adequate antibiotic coverage for now. 5 Septic shock, secondary to sternal wound infection. The patient is currently on no pressors 6 Acute kidney injury, requiring a brief period of hemodialysis. 7 Acute metabolic acidosis, secondary to acute kidney injury. 8 Acute diastolic CHF with bilateral pleural effusions. 9 History of hypertension. 10 History of cervical stenosis. 11 Primary history of tobacco use. 12 Mild pulmonary fibrosis/interstitial lung disease. 13 Status post sternal exploration with sternal debridement, August 27. 14 Recent prior history of two-vessel bypass grafting, on August 10, with discharge on August 19. 15 Hypernatremia, currently being addressed by nephrology, the patient is on free water replacement and D5 water with IV and the sodium level is down to 148. Plan: Keep the patient off sedation for now The patient was taken off the Diprivan for a few days and the patient has been managing well while awake. Check weaning parameters and for the patient is point is breathing trial with a pressure support of 8 and a PEEP of 5 and obtain a blood gas in 60 minutes to an hour Continue free water supplements through the OG Continue enteral feeding for nutritional support continue cefepime and daptomycin Surgical follow-up on the wound and the RAHEEM drains daily Lasix I don't think the patient is episodes ready for extubation at this point in time. She is doing progress. She is still significantly weak. Neurologist on the case. She is awake and alert. Continue same antibiotic coverage. Continue to show support. Passive range of motion. Continue daily trials once he has breathing We'll coordinate with cardiothoracic surgery patient's care We'll continue following this patient with aggressive the consultants. Time with Patient: Greater than 30 Time with Patient: Greater than 30
--- NOTE | 2020-09-07 08:05 | XR ---
EXAMINATION TYPE: XR chest 1V portable DATE OF EXAM: 09/07/2020 COMPARISON: Chest x-ray 09/06/2020 HISTORY: Respiratory failure, intubated TECHNIQUE: Single frontal view of the chest is obtained. FINDINGS: Endotracheal tube and NG tube, bilateral chest drains, left atrial appendage clip, midline franc are again noted, there are overlying leads and artifacts. Postop change noted to the cervica l spine extending over the upper thoracic spine. There is no evident pneumothorax or pleural effusion . Bilateral patchy mixed interstitial and airspace disease present within the lungs. IMPRESSION: Correlate for pneumonia, edema, ARDS
[2020-09-07 08:25] LABS: ABG Base Excess 1.3 mmol/L; ABG HCO3 25 mmol/L (21-25); ABG Oxygen Saturation 99.2 % (94-97); ABG PCO2 33 mmHg (35-45); ABG PH 7.48 (7.35-7.45); ABG PO2 92 mmHg (83-108); ABG TCO2 26 mmol/L (19-24)
[2020-09-07 08:26] LABS: Allen Test Performed? no
--- NOTE | 2020-09-07 09:23 | P.PN ---
Subjective Progress Note Date: 09/07/20 Principal diagnosis: Shortness of breath, acute diastolic heart failure, bilateral pleural effusion, lactic acidosis, hypercapnic respiratory failure requiring BiPAP followed by mn chanical ventilation, deep sternal wound infection with MSSA, acute kidney injury, acute hyperkalemia, hyponatremia, acute transaminitis, hypotension requiring vasopressors use, acute anemia. Past medical history significant for coronary artery disease with left main stenosis status post 2 vessel CABG on 08/10/2020 with expected postoperative acute blood loss anemia, hypotension, and urinary retention as well as candidal stomatititus, hyponatremia, pulmonary fibrosis, asthma, hypertension, hyperlipidemia, previous tobacco dependence, obesity, osteoarthritis, cervical stenosis post anterior cervical disc decompression, discectomy and fusion, TIA as a child, family history of premature coronary artery disease. Paroxysmal Afib with RVR. POD #11 sternal exploration with sternal debridement. POD #4 removal of table and partial resection of the manubrium as well as partial sternectomy by Dr. Sethi, right pectoralis major myocutaneous flap, left pectoralis major myocutaneous flap by Dr. Whittaker. The patient is seen in follow-up today 09/07/2020 at her bedside in the intensive care unit. The patient remians intubated with mechanical ventilator support. Current mechanical ventilator settings are assist control 20, TV 400, FiO2 40% with a PEEP of 5. Oxygen saturations on current mechanical ventilator settings are 98%. ABG results this morning show a pH of 7.50, pCO2 32, pO2 91, HCO3 25, oxygen saturation 98.8 and base excess 1.6. Sedation remains off, the patient is awake and alert and is following some simple commands this morning. The patient continues to have some profound weakness but is continuing to wiggle her toes, move her legs, and squeeze her hands with verbal stimuli. T-max temperature in the last 24 hours is 101.6F, bedside telemetry showing sinus tachycardia heart rate 100 BPM. She remains hemodynamically stable and is currently on no inotropic her pressure support. OG tube is in place with continuous tube feeding vital high-protein at goal rate of 54 ml/hr. She remains on daptomycin and cefepime for antibiotic coverage. Blood cultures from 09/01/2020, 09/02/2020 and 09/03/2020 remain negative. Sputum culture from 09/04/2020 is negative. Prevena dressing is clean, dry and intact to her steranal incision, RAHEEM drains in place and draining scant serosanguineous drainage. Objective - Vital Signs Vital signs: Vital Signs Temp 99.3 F 09/07/20 04:00 Pulse 107 H 09/07/20 08:58 Resp 34 H 09/07/20 07:30 BP 81/30 09/07/20 07:30 Pulse Ox 97 09/07/20 07:30 Intake & Output 09/06/20 09/07/20 09/07/20 18:59 06:59 18:59 Intake Total 1854 2122 74 Output Total 1960 1055 50 Balance -106 1067 24 Weight 88.7 kg Intake: IV 220 20 Dextrose 5% in Water 1, 220 20 000 ml @ 20 mls/hr IV . Q24H [facility] Rx#:[id number] Tube Feeding 594 702 54 Other 1260 1200 Output: Drainage 165 130 RAHEEM #1. 20 0 RAHEEM #2 115 130 RAHEEM #3 15 0 Wound Vac 15 Urine 1595 875 50 Uretheral (Yu) 260 Stool 200 50 Other: Voiding Method Indwelling Catheter Indwelling Catheter ABP, PAP, CO, CI - Last Documented Arterial Blood Pressure 123/49 - Constitutional General appearance: Present: cooperative, no acute distress, obese - EENT Eyes: Present: normal appearance. Absent: scleral icterus ENT: Present: hearing grossly normal - Neck Details: Neck is supple, no JVD. No lymphadenopathy. - Respiratory Details: Lung sounds with few scattered rhonchi throughout, diminished bilateral bases. Respirations are symmetrical and nonlabored with mechanical ventilator support. Oxygen saturations are 98% on current mechanical ventilator settings. - Cardiovascular Details: Regular rhythm and tachycardic rate. S1 and S2 present, negative for S3, gallop or murmur. Heart hugger is in place. Bedside telemetry showing sinus tachycardia heart rate 100 BPM. Generalized +1 edema. Knee-high ANGEL hose and sequential compression devices in place to her bilateral lower extremities. Right femoral central line catheter in place and functioning. - Gastrointestinal Gastrointestinal Comment(s): Abdomen soft, nontender and nondistended. Active bowel sounds present in all 4 abdominal quadrants. No guarding or rigidity. OG tube in place with vital high-protein to feeding infusing at goal rate of 54 mL per hour with automatic water flushes 400 mL every 4 hours. - Genitourinary Genitourinary Comment(s): Yu catheter for accurate I&O. Draining clear yellow urine. 450 mL output in the last 8 hours. - Integumentary Integumentary Comment(s): Skin is warm and dry. No clubbing or cyanosis is present. Sternal incision with Prevena dressing clean, dry and in place. [address] to her chest. Draining thin scant serosanguineous drainage. - Musculoskeletal Musculoskeletal: Present: generalized weakness - Psychiatric Psychiatric Comment(s): Unable to accurately assess her orientation as she remains intubated with mechanical ventilator support. She does shake her head to yes and no appropriately to questions. Psychiatric: Present: appropriate affect - Allied health notes Allied health notes reviewed: nursing - Labs CBC & Chem 7: 09/07/20 05:15 09/07/20 05:15 Labs: Abnormal Lab Results - Last 24 Hours (Table) 09/06/20 09/06/20 09/06/20 Range/Units 11:50 17:27 23:29 WBC (3.8-10.6) k/uL RBC (3.80-5.40) m/uL Hgb (11.4-16.0) gm/dL Hct (34.0-46.0) % RDW (11.5-15.5) % ABG pH (7.35-7.45) ABG pCO2 (35-45) mmHg ABG Total CO2 (19-24) mmol/L ABG O2 Saturation (94-97) % Sodium (137-145) mmol/L Chloride (98-107) mmol/L BUN (7-17) mg/dL Glucose (74-99) mg/dL POC Glucose (mg/dL) 132 H 123 H 117 H (75-99) mg/dL Calcium (8.4-10.2) mg/dL Total Bilirubin (0.2-1.3) mg/dL AST (14-36) U/L Alkaline Phosphatase (38-126) U/L Albumin (3.5-5.0) g/dL 09/07/20 09/07/20 09/07/20 Range/Units 05:15 05:15 05:30 WBC 11.8 H (3.8-10.6) k/uL RBC 2.93 L (3.80-5.40) m/uL Hgb 8.5 L (11.4-16.0) gm/dL Hct 26.3 L (34.0-46.0) % RDW 17.0 H (11.5-15.5) % ABG pH 7.50 H (7.35-7.45) ABG pCO2 32 L (35-45) mmHg ABG Total CO2 26 H (19-24) mmol/L ABG O2 Saturation 98.8 H (94-97) % Sodium 148 H (137-145) mmol/L Chloride 117 H (98-107) mmol/L BUN 38 H (7-17) mg/dL Glucose 112 H (74-99) mg/dL POC Glucose (mg/dL) (75-99) mg/dL Calcium 8.2 L (8.4-10.2) mg/dL Total Bilirubin 1.5 H (0.2-1.3) mg/dL AST 41 H (14-36) U/L Alkaline Phosphatase 181 H (38-126) U/L Albumin 2.4 L (3.5-5.0) g/dL 09/07/20 09/07/20 Range/Units 05:49 08:22 WBC (3.8-10.6) k/uL RBC (3.80-5.40) m/uL Hgb (11.4-16.0) gm/dL Hct (34.0-46.0) % RDW (11.5-15.5) % ABG pH 7.48 H (7.35-7.45) ABG pCO2 33 L (35-45) mmHg ABG Total CO2 26 H (19-24) mmol/L ABG O2 Saturation 99.2 H (94-97) % Sodium (137-145) mmol/L Chloride (98-107) mmol/L BUN (7-17) mg/dL Glucose (74-99) mg/dL POC Glucose (mg/dL) 113 H (75-99) mg/dL Calcium (8.4-10.2) mg/dL Total Bilirubin (0.2-1.3) mg/dL AST (14-36) U/L Alkaline Phosphatase (38-126) U/L Albumin (3.5-5.0) g/dL Microbiology - Last 24 Hours (Table) 09/03/20 18:02 Blood Culture - Preliminary Blood No Growth after 72 hours 09/02/20 18:52 Blood Culture - Preliminary Blood No Growth after 96 hours 09/01/20 14:40 Blood Culture - Preliminary Blood No Growth after 120 hours 09/04/20 00:25 Gram Stain - Final Sputum Sputum Culture - Final - Imaging and Cardiology Chest x-ray: report reviewed, image reviewed Assessment and Plan Assessment: 1. Shortness of breath, acute diastolic heart failure, EF 55-60% on current TTE, bilateral pleural effusions 2. Lactic acidosis, septic shock, blood cultures positive for MSSA 3. Hypercapnic, hypoxic respiratory failure requiring BiPAP, with subsequent intubation and mechanical ventilation 4. Open sternal wound, surgically created, deep sternal wound infection with MSSA, S/P surgical exploration and debridement with daily dressing changes 5. Leukocytosis with bandemia, bandemia resolved, WBC trending down 6. Acute kidney injury, metabolic acidosis, metabolic acidosis resolved, kidney function returning to normal after receiving dialysis 7. Acute hyperkalemia, resolved 8. Acute transaminitis secondary to hypoperfusion, resolving 9. History of hypertension, hypotensive this admission requiring vasopressors, currently off vasopressors 10. Acute anemia, post transfusion PRBCs, on 11. Coronary artery disease with left main stenosis status post 2 vessel CABG on 08/10/2020 with expected postoperative acute blood loss anemia, hypotension, and urinary retention as well as candidal stomatititus 12. Hyponatremia, resolved 13. Pulmonary fibrosis, asthma 14. Hyperlipidemia, treated 15. Previous tobacco dependence 16. Obesity 17. Paroxysmal afib w/ RVR, atrial flutter, status post exclusion of the left atrial appendage using a 35 mm AtriClip, currently sinus rhythm 18. 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 Ventilator management per pulmonary medicine. Weaning trials managed by pulmonary critical care medicine. Currently on CPAP trial. 2. Nephrology following, avoid nephrotoxins, diuretic management per nephrology recommendations. Currently on Lasix 40 mg IV daily. 3. Infectious disease following, blood cultures from 09/01/2020 and 09/02/2020 currently show no growth. Sputum culture from 09/04/2020 pulmonary result shows no growth. Remains on antibiotic coverage of cefazolin. Previous blood, sputum and sternal wound cultures showed positive for MSSA. T-max temperature in the last 24 hours was 101.6F. We will send a UA with reflex culture and blood c ultures today. 4. Continue aspirin, Plavix, , statin and beta sisi. We will increase metoprolol tartrate as tolerated. 5. No anticoagulation at this time. 6. Will continue to monitor daily labs, chest x-rays, and ABGs. 7. 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 The myopathy seems to continue to improve as the patient is wiggling her toes, moving her legs and squeezing her hands with verbal stimuli. 8. GI/DVT prophylaxis. 9. Continue tube feeding for nutrition, per dietitian recommendations. Currently at goal rate of 54 mL per hour vital high-protein. 10. Patient's and daughter updated on her care per phone. 11. Replace electrolytes per protocol. 12. Continue per Prevena dressing to her sternal incision. Continue to monitor RAHEEM drainage. 13. Continue to follow culture results. 14. Surgical pathology results remain pending. 15. More recommendations to follow based on patient's clinical course. Time with Patient: Greater than 30
[2020-09-07] MEDS ORDERED: LIDOCAINE 1% INJ 10MG/ML (20 ML MDV) ONE (09:35)
[2020-09-07] MEDS ORDERED: LIDOCAINE 1% INJ 10MG/ML (20 ML MDV) SQ ONE (10:06)
[2020-09-07] MEDS: DAPTOmycin 500 MG in SODIUM CHLORIDE 0.9% 50 ML IVPB SCH (10:17)
[2020-09-07] MEDS: CEFEPIME 2 GM in SODIUM CHLORIDE 0.9% 100 ML IVPB SCH ×2 (10:17→21:18)
[2020-09-07] MEDS: CLOPIDOGREL 75 MG TAB PO SCH (10:18)
[2020-09-07] MEDS: HEPARIN SODIUM,PORCINE 5,000 UNIT/ML 1 ML VIAL SQ SCH ×3 (10:18→23:29)
[2020-09-07] MEDS: ASCORBIC ACID 500 MG TAB PO SCH (10:18)
[2020-09-07] MEDS: FUROSEMIDE 10 MG/ML 4 ML VIAL IV SCH (10:18)
[2020-09-07] MEDS: PANTOPRAZOLE 40 MG/10 ML VIAL IVP SCH (10:18)
[2020-09-07] MEDS: FERROUS SULFATE ORAL ELIXIR 300 MG/5 ML CUP PO SCH (10:18)
[2020-09-07] MEDS: METOPROLOL TARTRATE 50 MG TAB PO SCH ×2 (10:18→21:18)
[2020-09-07] MEDS: CHLORHEXIDINE GLUCONATE 15 ML CUP MUCOUS MEM SCH ×2 (10:18→21:18)
[2020-09-07] MEDS: DRY MOUTH SPRAY 44.3 SPRAY/44.3 ML SPRAY MUCOUS MEM SCH ×4 (10:20→21:18)
--- NOTE | 2020-09-07 10:39 | P.PN ---
Subjective Patient is seen in follow-up for acute kidney injury. Renal function improving. Nonoliguric. Hemoglobin stable. Maintained on IV Lasix. Also receiving tube feeding. Currently on 40% FiO2. Sodium level improving with free water flushes. Vital signs: Tachycardic. Otherwise stable. HEENT: Intubated. LUNGS: Breath sounds decreased. HEART: Tachycardic. ABDOMEN: Soft, no distention noted. EXTREMITITES: Trace edema. Objective - Vital Signs Vital signs: Vital Signs Temp 99.3 F 09/07/20 04:00 Pulse 98 09/07/20 09:08 Resp 34 H 09/07/20 07:30 BP 81/30 09/07/20 07:30 Pulse Ox 97 09/07/20 07:30 Intake & Output 09/06/20 09/07/20 09/07/20 18:59 06:59 18:59 Intake Total 1854 2122 74 Output Total 1960 1055 50 Balance -106 1067 24 Weight 88.7 kg 88.7 kg Intake: IV 220 20 Dextrose 5% in Water 1, 220 20 000 ml @ 20 mls/hr IV . Q24H [facility] Rx#:[id number] Tube Feeding 594 702 54 Other 1260 1200 Output: Drainage 165 130 RAHEEM #1. 20 0 RAHEEM #2 115 130 RAHEEM #3 15 0 Wound Vac 15 Urine 1595 875 50 Uretheral (Yu) 260 Stool 200 50 Other: Voiding Method Indwelling Catheter Indwelling Catheter ABP, PAP, CO, CI - Last Documented Arterial Blood Pressure 123/49 - Labs CBC & Chem 7: 09/07/20 05:15 09/07/20 05:15 Labs: Abnormal Lab Results - Last 24 Hours (Table) 09/06/20 09/06/20 09/06/20 Range/Units 11:50 17:27 23:29 WBC (3.8-10.6) k/uL RBC (3.80-5.40) m/uL Hgb (11.4-16.0) gm/dL Hct (34.0-46.0) % RDW (11.5-15.5) % ABG pH (7.35-7.45) ABG pCO2 (35-45) mmHg ABG Total CO2 (19-24) mmol/L ABG O2 Saturation (94-97) % Sodium (137-145) mmol/L Chloride (98-107) mmol/L BUN (7-17) mg/dL Glucose (74-99) mg/dL POC Glucose (mg/dL) 132 H 123 H 117 H (75-99) mg/dL Calcium (8.4-10.2) mg/dL Total Bilirubin (0.2-1.3) mg/dL AST (14-36) U/L Alkaline Phosphatase (38-126) U/L Albumin (3.5-5.0) g/dL 09/07/20 09/07/20 09/07/20 Range/Units 05:15 05:15 05:30 WBC 11.8 H (3.8-10.6) k/uL RBC 2.93 L (3.80-5.40) m/uL Hgb 8.5 L (11.4-16.0) gm/dL Hct 26.3 L (34.0-46.0) % RDW 17.0 H (11.5-15.5) % ABG pH 7.50 H (7.35-7.45) ABG pCO2 32 L (35-45) mmHg ABG Total CO2 26 H (19-24) mmol/L ABG O2 Saturation 98.8 H (94-97) % Sodium 148 H (137-145) mmol/L Chloride 117 H (98-107) mmol/L BUN 38 H (7-17) mg/dL Glucose 112 H (74-99) mg/dL POC Glucose (mg/dL) (75-99) mg/dL Calcium 8.2 L (8.4-10.2) mg/dL Total Bilirubin 1.5 H (0.2-1.3) mg/dL AST 41 H (14-36) U/L Alkaline Phosphatase 181 H (38-126) U/L Albumin 2.4 L (3.5-5.0) g/dL 09/07/20 09/07/20 Range/Units 05:49 08:22 WBC (3.8-10.6) k/uL RBC (3.80-5.40) m/uL Hgb (11.4-16.0) gm/dL Hct (34.0-46.0) % RDW (11.5-15.5) % ABG pH 7.48 H (7.35-7.45) ABG pCO2 33 L (35-45) mmHg ABG Total CO2 26 H (19-24) mmol/L ABG O2 Saturation 99.2 H (94-97) % Sodium (137-145) mmol/L Chloride (98-107) mmol/L BUN (7-17) mg/dL Glucose (74-99) mg/dL POC Glucose (mg/dL) 113 H (75-99) mg/dL Calcium (8.4-10.2) mg/dL Total Bilirubin (0.2-1.3) mg/dL AST (14-36) U/L Alkaline Phosphatase (38-126) U/L Albumin (3.5-5.0) g/dL Microbiology - Last 24 Hours (Table) 09/03/20 18:02 Blood Culture - Preliminary Blood No Growth after 72 hours 09/02/20 18:52 Blood Culture - Preliminary Blood No Growth after 96 hours 09/01/20 14:40 Blood Culture - Preliminary Blood No Growth after 120 hours 09/04/20 00:25 Gram Stain - Final Sputum Sputum Culture - Final Assessment and Plan Plan: Assessment: 1. Acute kidney injury secondary to ATN secondary to hypotension/sepsis on admission and then from nafcillin. Baseline creatinine near 1. She did require hemodialysis earlier this admission has subsequently recovered kidney function. Creatinine 0.96 today. 2. Volume overload. Improving with diuresis. 3. Hypernatremia from lack of oral water intake. Improving. 4. Wound dehiscence of the sternum with MSSA bacteremia. On antibiotics. Also underwent sternal debridement this admission. 5. Acute hypoxia respiratory failure. Currently on 40% FiO2. 6. Status post CABG in 08/10/2020. 7. Acute blood loss anemia requiring multiple blood transfusions this admission. Also on Aranesp. 8. Hypokalemia from diuresis. Replaced. Plan: Maintain IV Lasix. Maintain tube feeding. Maintain free water flushes at 400 mL every 4 hours. Continue to monitor renal function and urine output. Wean FiO2.
[2020-09-07] MEDS: ASPIRIN 325 MG TAB PO SCH (11:04)
[2020-09-07] MEDS: DEXTROSE 5% IN WATER 1,000 ML IV SCH (11:06)
--- NOTE | 2020-09-07 11:07 | P.PN ---
Subjective Progress Note Date: 09/07/20 HISTORY OF PRESENT ILLNESS This is a 75-year-old female patient of Dr. Rich Avila, Dr. Sloan and Dr. Guadalupe. She has a past medical history significant for hypertension, hype rlipidemia, pulmonary fibrosis, asthma, obesity, remote history of tobacco dependence with smoking 32 years ago, osteoarthritis, cervical stenosis post anterior cervical decompression, discectomy and fusion, TIA as a child at age 11 and family history of premature coronary artery disease with her father being diagnosed in his early 50s. Recently, the patient has been experiencing episodes of shortness of breath over the past 6 months with just minimal activity. She also complained of some lower extremity swelling which did resolve with some diuresis. she underwent a stress test which showed anterior wall ischemia with small reversible defect. a 2-D echocardiogram which showed mild aortic valve insufficiency, mild mitral valve regurgitation, mild tricuspid valve regurgitation and left ventricular function to be normal with an ejection fraction of 55%. Subsequently she underwent an elective heart catheterization on 07/27/2020 which demonstrated a left main stenosis with QING with a calculation of 2.6 mm, a 40% stenosis to her mid left anterior descending coronary artery and a 30% stenosis to her right coronary artery. Due to the patient's symptoms and findings on her heart catheterization of left main stenosis a consult was placed to Dr. Sethi from cardiothoracic surgery for further evaluation and treatment recommendations. During her preoperative workup her serum sodium level was found to be 120 and was admitted prior to surgery for treatment of hyponatremia. Last admission On 08/06/2020-08/19/20 the patient was admitted to the hospital for treatment of her hyponatremia, and once her hyponatremia was resolved on 08/10/2020, asubsequently taken to the operating room where Dr. Sethi performed a double vessel coronary artery bypass grafting surgery using the left internal mammary artery to left anterior setting coronary artery, a reverse greater saphenous vein graft from the aorta to the first obtuse marginal coronary artery, endoscopic harvesting of the left greater saphenous vein from the groin Upon completion of the surgery the patient was transferred to the intensive care unit where she was recovered, monitored hemodynamically and where she progressed cardiac rehabilitation phase Her oxygen was titrated down, she continued to work with physical/occupational therapy and cardiac rehabilitation, she was tolerating an oral diet, her pain was well controlled without narcotics and she was ready to be discharged home with [facility] care on postoperative day #9. Did not require home O2 on last admission however she required new medication changes including diuretics during that last admission. Patient comes in in worsening shortness of breath anasarca, no chest pain, has BARKER, edma without leg pain new medications from last visit was compliant, requiring lipitor 75bid, tolvaptan. meotprolol 75 bid plavix, lasix 40 mg daily losartain 25 asa 325, ferrous sulfate and fluconazole. patient comes in now for CHF, anarsarc ely pleural effusion, consult with dr Sethi. and cardiology, if okay will be cardiothoracic surgeon can also perform the thoracentesis, however with hypoxemia, also have requested Dr. Gamboa's services. Patient has a hemoglobin of 7.0 on and 3, platelet count of 305, hemoglobin right to admission was 8.0 denies any Hemoccult stools, creatinine was 1.60 from a previous of 0.9 blood pressure is in the low 90s systolic, pulse ox, 90 on 4 L nasal cannula, patient was not discharged with home O2 during her last admission 08/24: A-Team was called for mental status changes. Patient was found to have a blood pressure 99/65, heart rate of 85 and pulse ox of 96% on a nonrebreather with respiratory rate of 32. Patient was transferred to the ICU. She was started on vancomycin and cefepime. Patient has been seen by cardiology with plan to continue vasopressor support, patient may need pleurocentesis. Stat echocardiogram was done to rule out pericardial effusion or tamponade. Patient has been seen by nephrology for acute kidney injury secondary to ATN secondary to hypotension and cardiorenal syndrome. Patient is currently on bicarb drip, status post Lasix 80 mg IV once. Renal replacement therapy to be initiated immediately. Vascular consult in place for a dialysis catheter placement and start hemodialysis today with second treatment tomorrow. Sternal wound was producing thick yellowish brown fluid, was opened approximately 2 cm and deep culture was taken, packed and covered with 4 x 4 dressing. She is requiring vasopressors. She is hypothermic and warming blanket is in place.Patient had minimal output yesterday and none today. She is status post 2.5 L of fluids. 08/25 patient was examined in the ICU. She was able to maintain oxygenation on BiPAP overnight switch to high flow 15 m this morning. Patient did have episodes of agitation last night and was started on Seroquel. She did receive a dose of Seroquel prior to admission and was found to be resting comfortably. Patient is off pressors and bicarbonate drip and metabolic acidosis seemed to have cleared off. On evaluation of patient's lab, WBC is 14.3, hemoglobin 6.5 platelet 208 ABG this morning has a pH of 7.47 CO2 74. Bicarb 29. Sodium has improved to 126 chloride 96 BUN 43 creatinine 2.79 lactic acid has improved to 2.9 calcium 7 liver enzymes elevated AST at 2874 ALT 1469 alkaline phosphatase 192 CRP 356 BNP 13,000 UA does suggest some infection with WBC of 88 hyaline casts 33 protein 2+ urine blood trace nitrite negative leukocyte Estrace negative. Wound cultures positive for presumptive staph aureus. Patient's blood culture from yesterday are positive with presumptive staph aureus. Repeat blood cultures ordered. Patient received 1 unit of PRBCs for low hemoglobin. Urine output has improved to 20-40 mL's per hour. Patient did receive a dose of DDAVP for hyponatremia. Normal saline is running at 50 mL per hour. Did receive hemodialysis today with 2 L ultrafiltration. Patient was also noted to be in A. fib with RVR intermittently and her dose of Lopressor was increased to 25 mg every 8 hours. Continue daptomycin and cefepime for antibiotic coverage. Monitor patient's for QTC prolongation well on Seroquel. Patient has significant dehiscence of wound and may need I&D 08/26: She was intubated and placed on mechanical ventilation overnight with pulse ox of 96%, tidal volume 450, FiO2 50, PEEP of 5. Temperature max last evening was 101.2. Heart rate 82, blood pressure 120/53. WBC 9.6, hemoglobin 10.8, platelet count 159. Sodium 134, potassium 4.7, chloride 100, CO2 25, BUN 14 creatinine 1.83. Blood sugars running between 100 2753. Total bilirubin 3.3, AST 1067, ALT 993, alkaline phosphatase 251. Magnesium 2.1. Patient is on vasopressors. home health outreach coordinator atrial flutter alternating with sinus rhythm. Patient is also on propofol and Seroquel discontinued. Thoracic surgery is possible taking her to or for I&D and considering wound VAC. Patient is on Plavix. Echocardiogram reveals normal LV function and mild aortic stenosis. Patient is currently on daptomycin and cefepime per Dr. Mcintyre. Urine output remains low at 15-20 mL per hour. Should she is scheduled for third hemodialysis treatment today. Patient is scheduled for Lasix 80 mg IV this afternoon. 08/27 she remains in the ICU, intubated and mechanically ventilated. Patient is going to the OR for debridement today. Patient remains intubated on 50% FiO2 and PEEP of 5, assist control rate of 20volume 450. Continues to require Levophed at 11mcg/ hr . Blood clots and culture positive for MSSA. Urine output is 50-60 mL per hour. Patient continues to be on sedation from propofol at 50 max per KG permanent. IV fluids at KVO. Patient continues to have good urine output after a dose of 80 mg of IV Lasix today. Vision tolerated 2.5 L ultrafiltration yesterday and is started on hemodialysis on August 24. No holiday sedation today. Plan to continue Lasix 80 IV once daily and holding hemodialysis. Anticoagulation held for debridement. 08/28 patient remains in the ICU. Did have sternal Exploration and debridement yesterday remains sedated on propofol. Patient continues to have high temp of 101.6, to 233 tachycardic 111 blood pressure 106/51 oxygen saturation 95% on 50% FiO2. Labs suggest a leukocytosis of 24.3 hemoglobin stable at 10.7 platelet count has dipped dropped to 78, he really suggest a pH of 7.53 pCO2 30 PaO2 57, chloride of 110 potassium 3.5 and anion gap of 6 BUN 46 creatinine 0.9 calcium 7.8 ALT 3:15 alkaline phosphatase 312 AST 112 blood cultures from 08/26 positive for staph aureus. Urine output 1.2 L in 24 hours Repeat blood cultures sent today. Patient continues to be normal sinus rhythm not currently on any anticoagulation at the possibility of going for another debridement. Patient's continues to be on levo fed and still stays intubated. Continue IV Lasix. Patient initiated on IV Lasix 08/29: Patient remain in the ICU, remain on mechanical ventilation, sternal exploration and debridement was done and still have packing area within open wound at this point. Oxygenation is better patient is not 3 to be off vent at this point. Her urine output has been good and hemodynamically stable. 08/30: Patient still on mechanical ventilation, his sternum 1 and was changed today still have significant amount of infection and pus was packed still open. Patient remain on nafcillin and Moni mycin. Still having positive blood culture. 08/31: Patient is more awake today doing trial of weaning parameter try to get patient off the respirator, her incision and infection along the sternum is no change still have packing on still on IV antibiotics. Hemodynamically is more stable. 09/01: Patient evaluated in the ICU, continues on mechanical ventilation. Wound packing was removed yesterday, purulence was noted on the packing, deep near the heart and purulence around the heart. She continues on IV clindamycin and nafcillin. Patient was taken off sedation yesterday for a trial of weaning, but she became hypertensive and tachypneic so she is placed back on sedation. 09/02: Patient remains intubated and on mechanical ventilation with tidal volume 400, FiO2 of 50% and PEEP of 5. Patient has been off sedation since Monday. She is receiving OG tube feedings. She appears to be opening meaning her eyes and can shake her head. Otherwise not moving extremities. She has a wound VAC in place to the sternal wound. Wound cultures and blood culture positive for MSSA. She is scheduled for sternal wound excision and debridement with flap reconstruction and graft tomorrow with Dr. Whittaker. Repeat blood work reveals WBC of 13.6, hemoglobin 8.5. BUN 66 and creatinine 1.62, potassium 3.2 and has been replaced, blood sugars running between 107 and 132. Because renal functioning is worsening, nephrology has recommended holding nafcillin. Repeat chest x-ray reveals correlate for pneumonia, edema, ARDS. 09/03: She remains in the intensive care unit intubated and on mechanical ventilation with tidal volume 400, FiO2 40, PEEP of 5. Patient is awake with eyes open. She nodded her head no to having pain. She had a temperature this morning of 101.6 at 6 AM. Antibiotics are currently in the form of Kefzol. Repeat chest x-ray was done this morning and report is pending. Patient has been seen by neurology and doubt critical illness neuropathy. CAT scan of the brain and cervical spine done that showed no acute fracture or dislocation in the cervical spine. No acute intracranial hemorrhage, mass effect or midline shift. Ongoing airspace disease. Cardiology has recommended reinitiating statin. Temperature max 101.6, heart rate 101, blood pressure 117/52, pulse ox 95%. Repeat blood work reveals WBC 15.4, hemoglobin 8.3, platelet count 243. Sodium 149, potassium 2.8, chloride 111, CO2 28, BUN 66 and creatinine 1.49. Total bilirubin 2.4, AST 43, ALT 33 and alkaline phosphatase 260. All previous blood cultures have been positive for staph aureus MSSA. A repeat blood culture on August 2029 showing no growth at 24 hours. 09/04: Yesterday, patient underwent excision of sternal wound, partial sternotomy and pectoralis flap procedure. This morning, patient had new lines done by pulmonary medicine. Dr. Mcintyre has recommended continuing Kefzol and repeat blood cultures are in progress. Repeat chest x-ray reveals rotated exam, findings similar to prior, correlate for edema, pneumonia, ARDS. Cardiothoracic surgeryhas ordered a consult with Dr. Yuan. He has evaluated patient for global weakness and does not think she has new cervical spine issues that would cause her global weakness.patient continues to have fever with temperature maximum 102.2, tachycardic in the low 100s, respiratory rate 30, blood pressure 103/60, pulse ox 98%. She remains intubated and on mechanical ventilation with tidal volume 400, FiO2 50, PEEP of 5. WBC 17.5, hemoglobin 7.2, platelet count 328. Sodium 149, potassium 3.8, chloride 115, CO2 26, BUN 59 and creatinine 1.37. Blood sugars running 129-144. Magnesium 2.6. Total bilirubin 2.0, AST 39, alkaline phosphatase 197, ALT 19.. sputum culture has been obtained. Most recent blood culture from September 02 showing no growth at 24 hours and blood culture from September 01 is no growth at 48 hours. Patient is currently on very minimal sedation. 09/05: Patient remains in the ICU, intubated and on mechanical ventilation with tidal volume 400, FI02 40% and peep 5. Patient continues to run fevers. Dr. Mcintyre has changed antibiotics to cefepime and daptomycin. Blood cultures dated September 01, , are showing no growth. Sputum culture is in process. home health outreach coordinator sinus tachycardia. Heart rate has been running between 108 and 121, respiratory rate 31, blood pressure 90/32, pulse ox 98%. She remains on low dose norepinephrine. Patient is off sedation with eyes open. She is not moving extremities. She has been evaluated by orthopedic spine and spinal etiology has essentially been ruled out. Patient is also been evaluated by neurology and critical care neuropathy has also been essentially ruled out. Patient stabilized, hopefully a MRI can be performed. WBC 13.4, hemoglobin 5.4 and this was rechecked, platelet count 313, sodium 152, potassium 3.6, BUN 45 and creatinine 1.2. Patient is receiving 1 unit of packed RBCs. Nephrology is continuing IV Lasix 40 mg daily. Patient is on PEG tube feedings and tolerating. 09/06: Patient remains in intensive care unit. She is intubated and on mechanical ventilation with tidal volume 400, FiO2 40, PEEP 5. The patient has her eyes open, she is responsive with facial movement, she is able to minimally move lower extremities. She has a fecal management system in place as well as Yu catheter with good urine output. Patient was running fevers yesterday until evening. Patient has been afebrile following a reading of 1800 last night of 100.9. She is on IV antibiotics with cefepime and daptomycin. Heart rate 95-112, respiratory rate 28. Repeat chest x-ray reveals cardiomegaly with increased alveolar and interstitial edema and/or infiltrates bilaterally remain present. Possible ARDS. Hemoglobin today is at 8 status post She is continued on IV Lasix per nephrology. Potassium replaced. W BC 10.6, platelet count 276. Sodium 150, potassium 3.6, chloride 119, CO2 24, BUN 42 and creatinine 1.03. Blood sugar 140. Patient is receiving tube feedings at goal rate. 09/07: She remains in the intensive care unit, intubated and on mechanical ventilation with FiO2 of 40%, PEEP of 5. She remains off sedation and is awake and able to follow some minimal commands. Mature max 101.6, heart rate 104, respiratory rate 34, blood pressure 81/30, pulse ox 97%. AP blood work reveals WBC 11.8, hemoglobin 9.5, platelet count 347. Sodium 148, potassium 3.7, chloride 117, CO2 25, BUN 38 and creatinine 0.96. Blood sugar running between 112 117. Magnesium 2.0. Total bilirubin 1.5, AST 41, ALT 19, alkaline phosphatase 181. Albumin 2.4. Blood cultures on every remain without g rowth at 120 hours. Sputum culture has been finalized no growth. Patient is continued on cefepime and optimizing. PICC line is being inserted this morning by interventional radiology. OG tube with feedings at goal. Patient is not currently on vasopressors. REVIEW OF SYSTEMS Unable to obtain due to mental status change/intubation. PHYSICAL EXAMINATION Gen: This is a 75-year-old female. Patient is resting in ICU bed and appears to be comfortable. HEENT: Head is atraumatic, normocephalic. Pupils equal, round. Sclerae is anicteric. Patient intubated and on mechanical ventilation. NECK: Supple. No JVD. No lymphadenopathy. LUNGS: Diminished. No wheezes or rhonchi. No intercostal retractions. HEART: Regular rate and rhythm. 2/6 systolic murmur. Dressing to sternal wound. ABDOMEN: Soft. Bowel sounds are present. No masses. No tenderness. EXTREMITIES: 2+ bilat pitting edema. No calf tenderness. NEUROLOGICAL: Patient resting comfortably in bed, opens eyes, minimal movement of lower extremities. ASSESSMENT AND PLAN 1. Acute diastolic heart failure, (POA) EF 55%, mild AI and mild MR and mild TR , also complicated by severe protein calorie malnutrition, Cardiology consult appreciated. Continue Lasix 40 mg IV daily managed by nephrology. 2. Acute hypoxemic respiratory failure. (POA) Patient has underlying pulmonary hypertension as well, consult with coronary. Patient is intubated and on mechanical ventilation. Pulmonary medicine is managing. 3. Acute kidney injury secondary to ATN secondary to hypotension and cardiorenal syndrome. (POA) Patient is status post dialysis catheter placement, hemodialysis. Patient is followed closely by nephrology. 4. Hyperkalemia secondary to potassium supplementation, losartan and acute kidney injury as well as severe acidosis. (POA) Consult with nephrology appreciated. Continue medical management. 5. Metabolic acidosis secondary to acute kidney injury. (POA) 6. Metabolic encephalopathy secondary to acute kidney injury, acute heart failure, acute respiratory failure, metabolic acidosis and hyperkalemia. (POA) improving. 7. Sepsis with septic shock with multiorgan failure with metabolic encephalopathy, acute kidney injury, acute heart failure, acute respiratory failure, MSSA bacteremia. (POA) status post sternal exploration and sternal debridement on August 27, Patient is on low-dose vasopressors. 8. Sepsis with sternal wound dehiscence. (POA) Status post sternal exploration and sternal debridement on 08/27 followed by excision of sternal wound, partial sternotomy and pectoralis flap procedure on 09/03. Infectious disease consult appreciated. Antibiotics have been transitioned to cefepime and daptomycin. 9. Acute blood loss anemia, postop, status post transfusion of 5 units of packed RBCs. Continue to monitor. 10. Hyponatremia. Continue to monitor. 11. CAD, with prior CABG performed on 08/10/2020, two-vessel, involving HOLLAND to LAD, and reverse greater saphenous vein to obtuse marginal coronary artery. Continue aspirin 325 mg daily, Plavix 75 mg daily, Toprol all 75 mg twice a day, 12. Severe protein calorie malnutrition, with anasarca and hypotension. Continue tube feedings. 13. History of pulmonary fibrosis. Continue duo nebs and albuterol 14. Asthma, mild intermittent. Continue ipratropium albuterol nebulizers 15. Hyperlipidemia. Continue statin daily 16. Hypertension. Currently hypotensive 17. GI prophylaxis. Pantoprazole 18. Critical care neuropathy essentially ruled out by and neurology. 19. DVT prophylaxis: SCDs 20. Blood sugar management in a nondiabetic. insulin scale every 6 hours. 21. Acute transaminitis secondary to hypoperfusion. 22. Chronic kidney disease stage II. Prognosis guarded DISCHARGE PLAN TBD. Impression and plan of care have been directed as dictated by the signing physician. Monica Fragoso nurse practitioner acting as scribe for signing physician. Objective - Vital Signs Vital signs: Vital Signs Temp 99.3 F 09/07/20 04:00 Pulse 98 09/07/20 09:08 Resp 34 H 09/07/20 07:30 BP 81/30 09/07/20 07:30 Pulse Ox 97 09/07/20 07:30 Intake & Output 09/06/20 09/07/20 09/07/20 18:59 06:59 18:59 Intake Total 1854 2122 74 Output Total 1960 1055 50 Balance -106 1067 24 Weight 88.7 kg 88.7 kg Intake: IV 220 20 Dextrose 5% in Water 1, 220 20 000 ml @ 20 mls/hr IV . Q24H [facility] Rx#:[id number] Tube Feeding 594 702 54 Other 1260 1200 Output: Drainage 165 130 RAHEEM #1. 20 0 RAHEEM #2 115 130 RAHEEM #3 15 0 Wound Vac 15 Urine 1595 875 50 Uretheral (Yu) 260 Stool 200 50 Other: Voiding Method Indwelling Catheter Indwelling Catheter ABP, PAP, CO, CI - Last Documented Arterial Blood Pressure 123/49 - Labs CBC & Chem 7: 09/07/20 05:15 09/07/20 05:15 Labs: Abnormal Lab Results - Last 24 Hours (Table) 09/06/20 09/06/20 09/06/20 Range/Units 11:50 17:27 23:29 WBC (3.8-10.6) k/uL RBC (3.80-5.40) m/uL Hgb (11.4-16.0) gm/dL Hct (34.0-46.0) % RDW (11.5-15.5) % ABG pH (7.35-7.45) ABG pCO2 (35-45) mmHg ABG Total CO2 (19-24) mmol/L ABG O2 Saturation (94-97) % Sodium (137-145) mmol/L Chloride (98-107) mmol/L BUN (7-17) mg/dL Glucose (74-99) mg/dL POC Glucose (mg/dL) 132 H 123 H 117 H (75-99) mg/dL Calcium (8.4-10.2) mg/dL Total Bilirubin (0.2-1.3) mg/dL AST (14-36) U/L Alkaline Phosphatase (38-126) U/L Albumin (3.5-5.0) g/dL 09/07/20 09/07/20 09/07/20 Range/Units 05:15 05:15 05:30 WBC 11.8 H (3.8-10.6) k/uL RBC 2.93 L (3.80-5.40) m/uL Hgb 8.5 L (11.4-16.0) gm/dL Hct 26.3 L (34.0-46.0) % RDW 17.0 H (11.5-15.5) % ABG pH 7.50 H (7.35-7.45) ABG pCO2 32 L (35-45) mmHg ABG Total CO2 26 H (19-24) mmol/L ABG O2 Saturation 98.8 H (94-97) % Sodium 148 H (137-145) mmol/L Chloride 117 H (98-107) mmol/L BUN 38 H (7-17) mg/dL Glucose 112 H (74-99) mg/dL POC Glucose (mg/dL) (75-99) mg/dL Calcium 8.2 L (8.4-10.2) mg/dL Total Bilirubin 1.5 H (0.2-1.3) mg/dL AST 41 H (14-36) U/L Alkaline Phosphatase 181 H (38-126) U/L Albumin 2.4 L (3.5-5.0) g/dL 09/07/20 09/07/20 Range/Units 05:49 08:22 WBC (3.8-10.6) k/uL RBC (3.80-5.40) m/uL Hgb (11.4-16.0) gm/dL Hct (34.0-46.0) % RDW (11.5-15.5) % ABG pH 7.48 H (7.35-7.45) ABG pCO2 33 L (35-45) mmHg ABG Total CO2 26 H (19-24) mmol/L ABG O2 Saturation 99.2 H (94-97) % Sodium (137-145) mmol/L Chloride (98-107) mmol/L BUN (7-17) mg/dL Glucose (74-99) mg/dL POC Glucose (mg/dL) 113 H (75-99) mg/dL Calcium (8.4-10.2) mg/dL Total Bilirubin (0.2-1.3) mg/dL AST (14-36) U/L Alkaline Phosphatase (38-126) U/L Albumin (3.5-5.0) g/dL Microbiology - Last 24 Hours (Table) 09/03/20 18:02 Blood Culture - Preliminary Blood No Growth after 72 hours 09/02/20 18:52 Blood Culture - Preliminary Blood No Growth after 96 hours 09/01/20 14:40 Blood Culture - Preliminary Blood No Growth after 120 hours 09/04/20 00:25 Gram Stain - Final Sputum Sputum Culture - Final
--- NOTE | 2020-09-07 11:10 | XR ---
EXAMINATION TYPE: XR chest 1V confirm line plcmt DATE OF EXAM: 09/07/2020 1026 hours COMPARISON: Earlier today at 0501 hours HISTORY: 75-year-old female PICC line placement TECHNIQUE: Single frontal view of the chest is obtained. FINDINGS: ACDF hardware. ET tube and NG tube are redemonstrated, satisfactory. Midline vertically oriented skin franc redemonstrated. Post-CABG clips in the mediastinum. Diffuse patchy airspace opacities persis t throughout. The right PICC line is looped within the axilla. A surgical drain along each anterior c hest wall on either side. IMPRESSION: 1. Right PICC line looped within the axilla. 2. Diffuse bilateral airspace disease similar to slightly worsened from earlier today.
--- NOTE | 2020-09-07 11:21 | XR ---
EXAMINATION TYPE: XR chest 1V confirm line plcmd DATE OF EXAM: 09/07/2020 at 1031 hours COMPARISON: Earlier today at 1026 hours HISTORY: 75-year-old female PICC line placement #2. TECHNIQUE: Single frontal view of the chest is obtained. FINDINGS: The right PICC tip remains looped in the right axilla, very similar to prior. Exam is otherwise uncha nged. IMPRESSION: Right PICC tip remains looped in the right axilla.
--- NOTE | 2020-09-07 11:22 | XR ---
EXAMINATION TYPE: XR chest 1V confirm line plcmt DATE OF EXAM: 09/07/2020 at 1033 hours COMPARISON: Earlier today at 1031 hours HISTORY: 75-year-old female PICC line placement #3. TECHNIQUE: Single frontal view of the chest is obtained. FINDINGS: Right PICC tip has been successfully advanced. The tip is now at the mid to lower SVC level. Remainde r of the chest is stable with a diffuse patchy airspace opacities. IMPRESSION: Right PICC line successfully advanced, tip now in the mid to lower SVC. Remainder of the chest is sta ble.
[2020-09-07 11:25] LABS: Glucose,Whole Blood 132 mg/dL (75-99)
--- NOTE | 2020-09-07 12:37 | IR ---
EXAMINATION TYPE: IR cvc insert >=5 years DATE OF EXAM: 09/07/2020 COMPARISON: NONE HISTORY: Hypertension, coronary artery disease, shortness of breath, respiratory failure, hyperkalemi a, needs access for therapy FINDINGS: Maximal barrier technique was utilized. Hand hygiene obtained with soap and water and alco hol-based hand rub. The skin overlying the right brachial vein was localized with ultrasound and note d to be compressible and patent by ultrasound. An ultrasound image was obtained and submitted on deonte burrows's chart. Sterile technique utilized with the ultrasound machine. The skin overlying was prepped and draped and Lidocaine used for local anesthesia. A skin dorothea was made with a scalpel. Access was not gained to the vein under direct ultrasound guidance with a 21-gauge needle, patient body habitus limits the evaluation and seizure, so the indwelling Angiocath was cannulated following sterile prep and drape, lidocaine with local anesthesia, and a 0.018 inch wire was advanced. Access site was dil ated with a peel-away sheath and the catheter tailored to length. Catheter advanced centrally and a post procedure chest x-ray verified placement initially within the axillary vein, repeat following ma nipulation is again shows axially vein placement, final manipulation shows a catheter with the tip in the superior vena cava. Catheter was fixed to the skin and a sterile dressing placed. Hemostasis a chieved and the catheter was aspirated and flushed with sterile saline. The patient remained in stab le condition. IMPRESSION: STATUS POST ULTRASOUND GUIDED PICC LINE PLACEMENT, READY FOR USE. THIS PROCEDURE WAS PER FORMED BY THE UNDERSIGNED.
--- NOTE | 2020-09-07 15:31 | P.PN ---
Subjective This is a 75-year-old female past medical history significant for hypertension, hyperlipidema, pulmonary fibrosis, asthma, obesity, former smoker with smoking 32 years ago, asteroarithtis, cervical stenosis post anterior cervical decompression, discectomy and fusion, TIA as child at age 11. She follows in the office with talked to position. She is status post coronary artery bypass grafting on 08/10/2020 who was readmitted with respiratory failure and evidence of pneumonia and dehiscense of her sternal wound. She underwent d ebridement with placement of a pectoralis flap. Patient is seen and examined this morning. She is awake, off sedation, not on any vasopressors. She is intubated, FiO2 40%, PEEP 5. Sodium 146, potassium 3.7, sCr 0.96, WBC 11.8, Hgb 8.5. PHYSICAL EXAMINATION Arterial Blood pressure 123/49 heart rate 104 afebrile. CHEST EXAMINATION: Lungs are clear to auscultation anteriorly . HEART EXAMINATION: Regular rate and rhythm. S1, S2 heard. No murmurs, gallops or rub. ABDOMEN: Soft, Positive bowel sounds. EXTREMITIES: 3+ edema in bilateral hands R >L, 2+ bilateral pitting edema lower extremities. NEUROLOGIC EXAMINATION: Patient is awake, able to follow some commands. ASSESSMENT Respiratory failure s/p coronary artery bypass grafting Wound dehiscense s/p pectoralis muscle flap Hypernatremia - patient currently getting free water flushes Acute blood loss anemia- s/p 2 unit on 09/05/20 History of Hypertension History of Hyperlipidemia PLAN -We will continue clinical observation on the present supportive medical therapy Nurse Practitioner note has been reviewed, I agree with a documented findings and plan of care. Patient was seen and examined. Objective - Vital Signs Vital signs: Vital Signs Temp 99.6 F 09/07/20 12:00 Pulse 100 09/07/20 14:00 Resp 39 H 09/07/20 14:00 BP 81/30 09/07/20 07:30 Pulse Ox 97 09/07/20 14:00 Intake & Output 09/06/20 09/07/20 09/07/20 18:59 06:59 18:59 Intake Total 1850 8272 1650 Output Total 1163 9637 775 Balance -106 1067 875 Weight 88.7 kg 88.7 kg Intake: IV 220 310 Cefepime 2 gm In Sodium 100 Chloride 0.9% 100 ml @ 25 mls/hr IVPB Q12HR [facility] Rx #:[id number] DAPTOmycin 500 mg In 50 Sodium Chloride 0.9% 50 ml @ 100 mls/hr IVPB Q24HR [facility] Rx#:[id number] Dextrose 5% in Water 1, 220 160 000 ml @ 20 mls/hr IV . Q24H [facility] Rx#:[id number] Tube Feeding 594 702 540 Other 1260 1200 800 Output: Drainage 165 130 RAHEEM #1. 20 0 RAHEEM #2 115 130 RAHEEM #3 15 0 Wound Vac 15 Urine 1595 875 775 Uretheral (Yu) 260 Stool 200 50 Other: Voiding Method Indwelling Catheter Indwelling Catheter ABP, PAP, CO, CI - Last Documented Arterial Blood Pressure 132/50 - Labs CBC & Chem 7: 09/07/20 05:15 09/07/20 05:15 Labs: Abnormal Lab Results - Last 24 Hours (Table) 09/06/20 09/06/20 09/07/20 Range/Units 17:27 23:29 05:15 WBC 11.8 H (3.8-10.6) k/uL RBC 2.93 L (3.80-5.40) m/uL Hgb 8.5 L (11.4-16.0) gm/dL Hct 26.3 L (34.0-46.0) % RDW 17.0 H (11.5-15.5) % ABG pH (7.35-7.45) ABG pCO2 (35-45) mmHg ABG Total CO2 (19-24) mmol/L ABG O2 Saturation (94-97) % Sodium (137-145) mmol/L Chloride (98-107) mmol/L BUN (7-17) mg/dL Glucose (74-99) mg/dL POC Glucose (mg/dL) 123 H 117 H (75-99) mg/dL Calcium (8.4-10.2) mg/dL Total Bilirubin (0.2-1.3) mg/dL AST (14-36) U/L Alkaline Phosphatase (38-126) U/L Albumin (3.5-5.0) g/dL 09/07/20 09/07/20 09/07/20 Range/Units 05:15 05:30 05:49 WBC (3.8-10.6) k/uL RBC (3.80-5.40) m/uL Hgb (11.4-16.0) gm/dL Hct (34.0-46.0) % RDW (11.5-15.5) % ABG pH 7.50 H (7.35-7.45) ABG pCO2 32 L (35-45) mmHg ABG Total CO2 26 H (19-24) mmol/L ABG O2 Saturation 98.8 H (94-97) % Sodium 148 H (137-145) mmol/L Chloride 117 H (98-107) mmol/L BUN 38 H (7-17) mg/dL Glucose 112 H (74-99) mg/dL POC Glucose (mg/dL) 113 H (75-99) mg/dL Calcium 8.2 L (8.4-10.2) mg/dL Total Bilirubin 1.5 H (0.2-1.3) mg/dL AST 41 H (14-36) U/L Alkaline Phosphatase 181 H (38-126) U/L Albumin 2.4 L (3.5-5.0) g/dL 09/07/20 09/07/20 Range/Units 08:22 11:23 WBC (3.8-10.6) k/uL RBC (3.80-5.40) m/uL Hgb (11.4-16.0) gm/dL Hct (34.0-46.0) % RDW (11.5-15.5) % ABG pH 7.48 H (7.35-7.45) ABG pCO2 33 L (35-45) mmHg ABG Total CO2 26 H (19-24) mmol/L ABG O2 Saturation 99.2 H (94-97) % Sodium (137-145) mmol/L Chloride (98-107) mmol/L BUN (7-17) mg/dL Glucose (74-99) mg/dL POC Glucose (mg/dL) 132 H (75-99) mg/dL Calcium (8.4-10.2) mg/dL Total Bilirubin (0.2-1.3) mg/dL AST (14-36) U/L Alkaline Phosphatase (38-126) U/L Albumin (3.5-5.0) g/dL Microbiology - Last 24 Hours (Table) 09/03/20 18:02 Blood Culture - Preliminary Blood No Growth after 72 hours 09/02/20 18:52 Blood Culture - Preliminary Blood No Growth after 96 hours 09/01/20 14:40 Blood Culture - Preliminary Blood No Growth after 120 hours
--- NOTE | 2020-09-07 15:33 | P.PN ---
Subjective Progress Note Date: 09/07/20 I'm seeing the patient for the first time for her neurological management. Please see Dr. Simmons's note for further details the patient history and the workup. Patient T-max in the last 24 hours was on 09/06/2020 at 2330 and it was 101.6 Fahrenheit. Patient hypernatremia has been slowly trending down the last one is 148 today yesterday was 150 in the day prior was 152. The patient continues to be intubated. Per the patient nurse her condition is improving and moving more lower extremities than upper. Objective - Vital Signs Vital signs: Vital Signs Temp 99.6 F 09/07/20 12:00 Pulse 100 09/07/20 14:00 Resp 39 H 09/07/20 14:00 BP 81/30 09/07/20 07:30 Pulse Ox 97 09/07/20 14:00 Intake & Output 09/06/20 09/07/20 09/07/20 18:59 06:59 18:59 Intake Total 1854 2122 1542 Output Total 1960 1055 775 Balance -106 1067 767 Weight 88.7 kg 88.7 kg Intake: IV 220 310 Cefepime 2 gm In Sodium 100 Chloride 0.9% 100 ml @ 25 mls/hr IVPB Q12HR [facility] Rx #:[id number] DAPTOmycin 500 mg In 50 Sodium Chloride 0.9% 50 ml @ 100 mls/hr IVPB Q24HR [facility] Rx#:[id number] Dextrose 5% in Water 1, 220 160 000 ml @ 20 mls/hr IV . Q24H [facility] Rx#:[id number] Tube Feeding 594 702 432 Other 1260 1200 800 Output: Drainage 165 130 RAHEEM #1. 20 0 RAHEEM #2 115 130 RAHEEM #3 15 0 Wound Vac 15 Urine 1595 875 775 Uretheral (Yu) 260 Stool 200 50 Other: Voiding Method Indwelling Catheter Indwelling Catheter ABP, PAP, CO, CI - Last Documented Arterial Blood Pressure 132/50 - Exam GENERAL: The patient is lying in bed and does not seem in acute distress. Respiratory: Intubated and on ventilator. NEUROLOGICAL: Limited because of patient's condition. Higher mental function: The patient is awake but unable to communicating or nodding. She followed few simple commands such blinking eyes to commands and lifting extremities. Cranial nerves: The pupils are round, equal and reactive to light. Visual lópez could not be assessed. No facial weakness noted. She is able to lift bilateral upper extremities at least 3/5. Motor: Gait is deferred. The strength is hand gasket winder had 3/5 but otherwise no other movement seen in uppers. While lower extremities are 2-3 proximally bilaterally while distally are 3-4/5 bilaterally. Normal tone and bulk. Cerebellum: Unable to assess. Sensation: Unable to assess. Reflexes (right/left): 3+ throughout except ankles are 2+ bilaterally Plantars are upgoing bilaterally. - Labs CBC & Chem 7: 09/07/20 05:15 09/07/20 05:15 Labs: Abnormal Lab Results - Last 24 Hours (Table) 09/06/20 09/06/20 09/07/20 Range/Units 17:27 23:29 05:15 WBC 11.8 H (3.8-10.6) k/uL RBC 2.93 L (3.80-5.40) m/uL Hgb 8.5 L (11.4-16.0) gm/dL Hct 26.3 L (34.0-46.0) % RDW 17.0 H (11.5-15.5) % ABG pH (7.35-7.45) ABG pCO2 (35-45) mmHg ABG Total CO2 (19-24) mmol/L ABG O2 Saturation (94-97) % Sodium (137-145) mmol/L Chloride (98-107) mmol/L BUN (7-17) mg/dL Glucose (74-99) mg/dL POC Glucose (mg/dL) 123 H 117 H (75-99) mg/dL Calcium (8.4-10.2) mg/dL Total Bilirubin (0.2-1.3) mg/dL AST (14-36) U/L Alkaline Phosphatase (38-126) U/L Albumin (3.5-5.0) g/dL 09/07/20 09/07/20 09/07/20 Range/Units 05:15 05:30 05:49 WBC (3.8-10.6) k/uL RBC (3.80-5.40) m/uL Hgb (11.4-16.0) gm/dL Hct (34.0-46.0) % RDW (11.5-15.5) % ABG pH 7.50 H (7.35-7.45) ABG pCO2 32 L (35-45) mmHg ABG Total CO2 26 H (19-24) mmol/L ABG O2 Saturation 98.8 H (94-97) % Sodium 148 H (137-145) mmol/L Chloride 117 H (98-107) mmol/L BUN 38 H (7-17) mg/dL Glucose 112 H (74-99) mg/dL POC Glucose (mg/dL) 113 H (75-99) mg/dL Calcium 8.2 L (8.4-10.2) mg/dL Total Bilirubin 1.5 H (0.2-1.3) mg/dL AST 41 H (14-36) U/L Alkaline Phosphatase 181 H (38-126) U/L Albumin 2.4 L (3.5-5.0) g/dL 09/07/20 09/07/20 Range/Units 08:22 11:23 WBC (3.8-10.6) k/uL RBC (3.80-5.40) m/uL Hgb (11.4-16.0) gm/dL Hct (34.0-46.0) % RDW (11.5-15.5) % ABG pH 7.48 H (7.35-7.45) ABG pCO2 33 L (35-45) mmHg ABG Total CO2 26 H (19-24) mmol/L ABG O2 Saturation 99.2 H (94-97) % Sodium (137-145) mmol/L Chloride (98-107) mmol/L BUN (7-17) mg/dL Glucose (74-99) mg/dL POC Glucose (mg/dL) 132 H (75-99) mg/dL Calcium (8.4-10.2) mg/dL Total Bilirubin (0.2-1.3) mg/dL AST (14-36) U/L Alkaline Phosphatase (38-126) U/L Albumin (3.5-5.0) g/dL Microbiology - Last 24 Hours (Table) 09/03/20 18:02 Blood Culture - Preliminary Blood No Growth after 72 hours 09/02/20 18:52 Blood Culture - Preliminary Blood No Growth after 96 hours 09/01/20 14:40 Blood Culture - Preliminary Blood No Growth after 120 hours Assessment and Plan Assessment: * New onset quadriplegia--improved to more movement in lower extremities compared to upper, unclear etiology. Rule out rule out spinal cord involvement like epidural abscess and rule out critical illness myopathy especialy (seem more spinal involvement especially since patient has hype rreflexiia). CT of the cervical spine showed no evidence of discitis osteomyelitis. 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 Improved. Blood cultures negative since 09/01/2020. * Status post CABG, followed by wound infection, requiring sternal debridement with persistent sepsis. Status post placement of muscle flap. * Septic shock with MSSA * Mild hypernatremia--improving * Acute kidney injury--improved * Acute transaminitis * CHF * Hypertension * History of cervical fusion, spinal stenosis in the past. Plan: * Patient underwent EEG testing on 09/05/20: Reported as abnormal due to background slowing of moderate to severe degree. This is suggestive of generalized cerebral dysfunction as can be seen with toxic metabolic encephalopathy or related to diffuse structural brain abnormality. No epileptiform activity was seen. No indication for antiepileptic medication. * Patient has quadriplegia, but apparently has started showing some improvement her nurse report. Continue close observation. * Patient continues to be encephalopathic, due to toxic metabolic encephalopathy. * Appreciate Orthopedic spine input. Hardware in the cervical spine is stable. No loosening. * CPK 74, TSH 1.87, aldolase 8.4 (1.2 to 7.6). I will order a repeat TSH since the last one was about a month ago. * Pending MRI Cervical spine (currently intubated and once stable will get MRI). The plan is discussed with the patient's nurse. Will continue to follow. Samy Guadalupe MD Neuro-hospitalist Time with Patient: Less than 30
[2020-09-07] MEDS: NOREPINEPHRINE 8 MG in SODIUM CHLORIDE 0.9% 250 ML IV SCH (17:06)
[2020-09-07 17:14] LABS: Glucose,Whole Blood 123 mg/dL (75-99)
[2020-09-07 19:34] LABS: Appearance,Urine Clear (Clear); Bilirubin,Urine Negative (Negative); Blood,Urine Moderate (Negative); Color,Urine Yellow; Glucose,Urine (UA) Negative (Negative); Ketones,Urine Negative (Negative); Leukocyte Esterase,Urine Negative (Negative); Mucus,Urine Rare /hpf; Nitrite,Urine Negative (Negative); Protein,Urine 1+ (Negative); RBC,Urine 64 /hpf (0-5); Specific Gravity,Urine 1.014 (1.001-1.035); Squamous Epithelial Cell,Urine <1 /hpf (0-4); Urobilinogen,Urine <2.0 mg/dL (<2.0); WBC,Urine 7 /hpf (0-5)
[2020-09-07 23:15] LABS: Glucose,Whole Blood 115 mg/dL (75-99)
--- NOTE | 2020-09-07 23:21 | PN ---
PROGRESS NOTE DATE OF SERVICE: 09/07/2020 REASON FOR FOLLOWUP: 1. 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 2. Left groin dialysis catheter site infection. INTERVAL HISTORY: The patient is currently afebrile. The patient is breathing comfortably. The patient remains intubated on the vent with FiO2 currently at 35%. No significant vomiting or diarrhea has been reported by the nursing staff. However, the nursing staff did mention significant purulent drainage from her left groin PermCath site which has been subsequently discontinued. PHYSICAL EXAMINATION: Blood pressure 128/55, pulse of 97, temperature 98.5. She is 97% on 35% FiO2. General description is an elderly female lying in bed in no distress. RESPIRATORY SYSTEM: Unlabored breathing with decreased breath sounds at the base. No wheeze. HEART: S1, S2. Regular rate and rhythm. ABDOMEN: Soft. No tenderness. Left groin currently with a small opening from the PermCath, which has been discontinued. significant fluctuation or drainage was noticed. Neurologically the patient is awake, alert, oriented x3. The patient is currently on the vent. LABS: Urine not significantly positive. Hemoglobin 8.5, white count 11.8. 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 Repeat blood culture has been negative. The patient did have persistent fever that could be more likely related to her left groin. PermCath site has been discontinued. The patient's fever responded to daptomycin, so that will be continued while monitoring her clinical course closely. Continue with supportive care. MMODL / IJN: [id number] /
[2020-09-08] MEDS: fentaNYL (PF) 50 MCG/ML 2 ML AMP IVP PRN ×3 (02:59→13:57)
[2020-09-08] MEDS: IPRATROPIUM-ALBUTEROL 3 ML NEB INHALATION SCH ×6 (03:48→23:38)
[2020-09-08] MEDS: ACETAMINOPHEN TAB 325 MG TAB PO PRN (05:29)
[2020-09-08 05:30] LABS: Anisocytosis Slight; HCT 22.9 % (34.0-46.0); HGB 7.4 gm/dL (11.4-16.0); Hypochromasia Slight; MCH 29.5 pg (25.0-35.0); MCHC 32.1 g/dL (31.0-37.0); MCV 91.8 fL (80.0-100.0); Mean Platelet Volume 9.8; Platelet Count 298 k/uL (150-450); Poikilocytosis Slight; RDW 17.2 % (11.5-15.5)
[2020-09-08 05:31] LABS: ABG HCO3 25 mmol/L (21-25); ABG PCO2 34 mmHg (35-45); ABG PH 7.48 (7.35-7.45); ABG PO2 98 mmHg (83-108); ABG TCO2 27 mmol/L (19-24); Allen Test Performed? Yes
[2020-09-08 05:46] LABS: Albumin 2.3 g/dL (3.5-5.0); Calcium 8.2 mg/dL (8.4-10.2); Potassium 3.4 mmol/L (3.5-5.1); Total Bilirubin 1.2 mg/dL (0.2-1.3); Total Protein 5.9 g/dL (6.3-8.2)
[2020-09-08 05:48] LABS: Glucose,Whole Blood 122 mg/dL (75-99)
[2020-09-08 07:05] LABS: Band Neutrophils % 2 %; Neutrophils % (M) 68 %; Nucleated Red Blood Cells 0 /100 WBC (0-0); Total Cells Counted 100
[2020-09-08 07:08] LABS: Howell-Jolly Bodies Present
[2020-09-08 07:09] LABS: Large Platelets Present
[2020-09-08 07:11] LABS: Polychromasia Present
--- NOTE | 2020-09-08 07:30 | P.PN ---
Subjective Progress Note Date: 09/08/20 wound infection. Reevaluated today on 08/28/2020, patient remains in the ICU, intubated and mechanically ventilated. Her assist-control rate is 20, volume is 450 FiO2 is 50% PEEP was at 5 and I increased it up to 8. ABG showed a pO2 of 57 pCO2 of 30 pH of 7.53. O2 saturation on the monitor is 96%. Patient remains on norepinephrine at 0.07 mcg/kg/m, she is also on propofol at 65 mcg/kg/m. Patient is on enteral feeding. Remains on cefepime and daptomycin for her positive blood cultures/MSSA. Patient is also on Lasix at 80 mg IV push every 24 hours. Her urine output has been good. And her chest x-ray continues to show mild congestive heart failure changes. Patient has leukocytosis with WBC count 24.3, electrolytes are normal BUN is 46 creatinine 0.90. Liver enzymes are trending down slowly Patient was reevaluated today on 08/29/2020, remains intubated and mechanically ventilated. She is on assist control rate of 20 tidal volume is 450 FiO2 is 50% and PEEP of 8. ABG showed a pO2 of 56 pCO2 of 35 pH of 7.50 however her O2 saturation on the monitor is 99%. Patient remains on norepinephrine at 0.05 mcg/kg/m, he is on propofol at 70 mcg/kg/m, she is on Lasix 80 mg IV push daily, with good urine output. IV fluid mostly at KVO. Antibiotics garzon she is on cefazolin and clindamycin. Patient had MSSA in the blood and in the sternal wound. Chest x-ray continues to show evidence of pulmonary edema, and now she seems to be developing some consolidation in the right upper lobe medially. Her sternum remains open, decision regarding sternal closure will be made in the next 24-48 hours by thoracic surgery. Patient continues to have leukocytosis with WBC count of 24.2 hemoglobin is 10.6, basic metabolic profile is normal renal profile is normal not requiring any further dialysis, and she has good urine output responding well to diuretics. Liver enzymes seem to be trending down 08/30/2020 the patient remains intubated on a mechanical ventilator. This morning, she has an assist-control at the rate of 20 with tidal volume of 450 and the flow of 70 with a FiO2 of 50% with a PEEP of 8. The morning blood gases from today showed a pH of 7.55, and the pCO2 is a 35 with a pO2 of 72. Necessity ventilator changes were done. Peak airway pressure was 37. Static pressure was 32. Chest x-ray still showing diffuse bilateral pulmonary infiltrates consistent with pneumonia although possibility of an acute lung injury/ARDS cannot be completely excluded. ET tube is in a good location. The patient this morning is sedated with propofol which is running at 50 mcg/kg per minute. Sedation holiday was given this morning to evaluate her mental status. I was told yesterday that the patient did have some diminished level of consciousness once she was off the sedation. Nevertheless she was placed on sedation again to maintain synchrony with the mechanical ventilator. She is septic with staff aureus, MSSA has been cultured in her sputum, and her blood and in her sternal wound. Her current antibiotic coverage including a combination of nafcillin and clindamycin. She is afebrile. Sternal wound is being monitored by the cardiothoracic surgery team. Daily dressing changes are being done. There is still output which is purulent according to the nursing staff. Pressors and the patient is currently on norepinephrine running at 0.04 mcg/kg per minute. Renal function is improving and the creatinine is down to 0.78. The white cell count is at 19.8 with hemoglobin of 10.2 and a platelet count of 90. Liver function tests continue to improve with an AST of 68, ALT of 77 and the last blood culture was taken from 08/29/2020 was again positive for gram-positive bacteria most likely MSSA. The patient has orogastric tube in place and she is receiving vital high protein at a rate of 23 mL an hour. This is at goal for now. No abdominal distention. No increased residuals for now. She is afebrile. Progress note dated 08/31/2020. This is a 75-year-old female was admitted to the hospital on August 22, she came in for a sternal wound infection, and worsening respiratory status with heart failure. Unfortunately, she developed severe hypoxemic respiratory failure and required intubation on August 25. She was discovered to have a sternal wound infection and went to the operating room for debridement, on August 27. Microbiology is positive for methicillin sensitive staph aureus, and she remains on nafcillin and clindamycin. This patient initially had a two- vessel bypass grafting on 08/10/2020, and was discharged on 08/19/2020. Currently, the patient remains on the volume assist control mode, rate is 20, tidal volume is 400, FiO2 40%, and PEEP of 8. Blood gases show a PaO2 of 65, a PaCO2 39, and a pH is 7.58. His blood gases consistent with a relative hypoxemia, and a severe metabolic alkalosis. Currently, the norepinephrine has been weaned off. She remains on saline at 25 mL an hour, and she is currently not on any sedation. She's getting vital high protein at 23 mL an hour with a goal of 28 mL an hour. Today, regarding do a spontaneous breathing trial, on pressor support of 15, CPAP of 5. If the patient shows any signs of deterioration, such as tachycardia, tachypnea, hypertension, diaphoresis, higher respiratory rates, and/or lower tidal volumes, the patient will be switched back to the volume assist control mode with the. Progress note dated 09/01/2020. 75-year-old female admitted back on August 22. She came into the hospital with a sternal wound infection. In addition, she had worsening respiratory status, with heart failure. She developed reinaldo hypoxemic respiratory failure and required intubation on August 25. At that time, she was discovered to have a sternal wound infection, secondary to staph aureus, and went to the operating room for debridement. This was on August 27. Microbiology is positive for methicillin sensitive staph aureus, and she remains on nafcillin and clindamycin. The patient had a two-vessel bypass grafting done on August 10, and was discharged on August 19. Currently, she remains on the volume assist control modality, the rate of 20, tidal volume 400, FiO2 50%, and PEEP of 5. This morning's blood gases, show a PaO2 of 58, a PaCO2 of 40, and a pH is 7.61. These arterial blood gases are consistent with hypoxemia, and a severe metabolic alkalosis. The FiO2 was increased from 40-50%. Currently, she is on propofol at 20 mcg/kg/m, saline at 15 mL an hour, and vital high protein at 54 mL an hour, which is goal. Today, we are going to ensure that her potassium exceeds 4.5, DC her Lasix, and add Diamox 500 mg a day. We also increased the FiO2 earlier this morning to 50%. She will not wean with his profound metabolic alkalosis, and likely, we will hypoventilate and retain carbon dioxide, to balance out her pH. Hence, it's imperative that we treat the alkalosis aggressively. Progress note dated 09/04/2020. 75-year-old female, admitted back on August 22. She came into the hospital with a sternal wound infection. She had worsening respiratory status with heart failure, and developed reinaldo hypoxemic respiratory failure and required intubat ion on 08/25. At that time, she was discovered to have a sternal wound infection secondary to staph aureus, and went to the operating room on 08/27, for debridement. Microbiology was positive for methicillin sensitive staph aureus. The patient had a two-vessel bypass grafting done on 08/10/2020, and was discharged on 08/19. She remains on the mechanical ventilator. She is on the volume assist control mode, rate of 20, tidal volume 400, FiO2 50%, and a PEEP of 5. She's currently on norepinephrine at 6.1 g her minute, D5W with half-normal saline and 20 mEq of potassium at 75 mL an hour, and tube feeds are currently on hold. This morning, we put a right femoral triple-lumen catheter in, as well as a right brachial arterial line. She received both fentanyl and Nimbex for the procedure. She is also postop day #1, status post excision of sternal wound, right pectoralis major myocutaneous flap, and left pectoralis major myocutaneous flap procedure. The patient's currently reasonably stable in the intensive care unit. No plans on any weaning her extubation at this time. Current laboratory data includes a white count of 17.5, hemoglobin 7.2, hematocrit 23.4, and platelet count 328,000. Morning arterial blood gas shows a PaO2 of 98, a PaCO2 of 34, and pH is 7.48. This blood gases consistent with normoxemia, and a mild respiratory and metabolic alkalosis. Sodium is 149, po tassium is 3.8, chloride 115, CO2 26, anion gap 8, BUN 59, creatinine 1.37. Chest x-ray shows bilateral infiltrates, which could relate to either pneumonia or pulmonary edema. X-ray is unchanged. Progress note dated 09/05/2020. 75-year-old female, admitted back on 08/22. Patient came into the hospital with a sternal wound infection, and developed worsening respiratory status, with heart failure, and reinaldo hypoxemic respiratory failure, requiring intubation on 08/25. At that time, she was discovered to have a sternal wound infection, secondary to staph aureus, and went to the operating room on 08/27, for debridement. Microbiology was positive for methicillin sensitive staph aureus. The patient had a two-vessel bypass grafting done on 08/10/2020, and was discharged home on 08/19. Currently, the patient remains on the ventilator. She is on the volume assist control mode, rate of 20, tidal volume 400, FiO2 40%, PEEP of 5. Arterial blood gases show a PaO2 of 150, PaCO2 35, pH is 7.49. The blood gases are consistent with hyperoxia, and a mild respiratory alkalosis. The patient will have a spontaneous breathing trial today, with a PSV of 80, and CPAP of 5. She's currently getting vital high protein at 54 mL an hour which is goal, and, D5.45, with 20 of potassium, at 20 mL an hour. She is on a small dose of norepinephrine, which is 0.04 g kilogram per minute, or 3.6 mcg /m. The patient is postop day #2, status post excision of sternal wound, with a right pectoralis major myocutaneous flap, and a left pectoralis major myocutaneous flap procedure. White blood count is 13.4, hemoglobin is only 5.4, hematocrit 17.2, and platelet count 313,000. She is currently getting blood. Sodium is 152, potassium 3.6, chlorides 120, carbon dioxide 26, anion gap 6, BUN 45, and creatinine 1.2. The IVs changed from D5 0.45, to just plain dextrose. Progress note dated 09/06/2020. 75-year-old female, admitted back on 08/22/2020. The patient initially came into the hospital with a sternal wound infection, with developing and worsening respiratory failure CHF, and profound hypoxemia. The patient required intubation and mechanical ventilation on 08/25/2020. At that time, he was discovered to have a sternal wound infection secondary to Staphylococcus aureus, and went to the operating room on 08/27/2020 for debridement. Microbiology was positive for methicillin sensitive staph aureus. The patient initially had a two-vessel bypass grafting, on 08/10/2020, and was discharged home 9 days later, on 08/19/2020. The patient remains on the ventilator, on the volume assist control mode, rate of 20, tidal volume 400, FiO2 40%, to be reduced down to 35%, and a PEEP of 5. Arterial blood gases show a PaO2 of 114, PaCO2 of 35, and a pH of 7.45. These blood gases consistent with a mild respiratory alkalosis, and mild hyperoxia. The patient is getting dextrose, at 20 mL an hour, saline at 10 mL an hour, of vital high protein at 54 mL an hour, which is goal, and she will be given a spontaneous breathing trial today on pressure support of 10, and CPAP of 5. Yesterday, on PSV 8, CPAP 5, she only lasted 5 minutes with her trial. In my opinion, unless the patient starts making significant progress, she likely will be a candidate for a tracheostomy and PEG tube procedure. Today's labs show a white count of 10.6, hemoglobin 8, hematocrit 25, and a platelet count of 276,000. Sodium is 150, potassium 3.6, chlorides 119, carbon dioxide 24, anion gap 7, BUN 42, and creatinine 1.03. Rest of the labs are reviewed. Chest x- rays shows cardiomegaly, with increased alveolar and interstitial edema and/or infiltrate laterally. Chest x-ray is unchanged. on 09/07/2020 the patient is being seen for a follow-up. The patient is off sedation and she is wide awake and following commands and answering questions appropriately while her being intubated on a mechanical ventilator. She is still profoundly weak. She can wiggle her toes and fingers. She is unable to raise her arms against gravity.. As such the patient is profoundly weak. She does have normal reflexes in all 4 extremities as such I think this is a myopathy rather than a underlying neuropathy processes underlying her weakness. There was a concern of epidural abscess/discitis. CAT scan of the cervical spine showed no evidence of any abnormalities and the patient was seen by neurology. EEG done earlier showed background slowing and moderate to severe degree of slowing suggestive of diffuse cerebral dysfunction/metabolic encephalopathy. No seizure activity was noted. The hardware and the cervical spine has been stable. No loosening.She was on a mechanical ventilator. Earlier this morning she was assist control mode at a tidal volume of 400 with a FiO2 of 35% with a PEEP of 5. I switched her to a pressure support of 8 and a PEEP of 5 with an FiO2 of 35%. Her med ventilation still elevated at 13.5 L per minute. She is able to generate a tidal volume of 3 80 mL and the respiratory rate is around 33. Despite her tachypnea, she states that she is breathing comfortably. Surgical wound site over the sternum is dry clean and intact. The patient has 3 separate RAHEEM drains and output is serosanguineous at this point in time. She has a fecal management system in place with output being minimal. The patient is receiving enteral feeding via a G-tube and she is on vital high protein at the rate of 54 mL an hour and the patient is also receiving free water supplements 400 mL every 4 hours. Her sodium level is down to 148. She is also on D5 water running at 20 mL an hour. She is afebrile. Antibiotic coverage has included a combination of cefepime and daptomycin. No fever. Most recent blood cultures From 09/01/2020 and 09/02/2020 and 09/03/2020 were all negative and a sputum culture from 09/04/2020 was also negative. The chest x- ray showing some bilateral pulmonary infiltrates.. The patient is awake. She has a adequate cough at this point in time. On today's evaluation of 09/08/2020, the patient is being seen in follow-up. The patient remains off sedation and she is wide awake. She is still weak and motor weakness is been an ongoing issue. She is moving her legs and she is able to raise her feet against gravity. She also is able to get as with her hands and she is able to move her hands rather than yesterday. Nevertheless, she is unable to raise her hands of the bed and she remains in significant amount of motor weakness. Yesterday, the patient was able to tolerate a total of 8 hours a pressure support mode of ventilation with a pressure support of 8 and a PEEP of 5. This morning, she is back on assist control mode at the rate of 20 with tidal volume of 400 and FiO2 of 35% with a PEEP of 5. The blood gases from today showed a pH of 7.48 with a pCO2 of 34 and pO2 of 98. Chest x-ray shows stable bilateral pulmonary infiltrates which is essentially unchanged compared to yesterday, probably slightly better. She does have a right sided PICC line and the findings of chest x-rays are essentially stable with stable diffuse patchy bilateral pulmonary infiltrates. ET tube remains in a good location. The patient has no significant orotracheal secretions. The white cell count at 10.0. No fever. Repeat blood cultures of been negative. The sodium level is improving and the sodium level is down to 145 and the patient is getting free water flushes 400 cc every 4 hours and she is also getting IV fluid in the form of D5W at the rate of 20 mL an hour. The patient has 3 separate RAHEEM drains and output remains serosanguineous. Output is minimal at this point in time. Her antibiotic coverage remains a combination of cefepime and daptomycin. As stated, the repeat blood cultures have been essentially negative and the patient is afebrile for now. The active issue for now is the profound weakness and the weaning process. The surgical wound site is covered with a wound VAC yet she has a fecal management system with minimal amount of output for now. Objective - Vital Signs Vital signs: Vital Signs Temp 99.9 F H 09/08/20 04:00 Pulse 101 H 09/08/20 06:30 Resp 32 H 09/08/20 06:30 BP 100/64 09/08/20 06:30 Pulse Ox 98 09/08/20 06:30 Intake & Output 09/07/20 09/08/20 09/08/20 18:59 06:59 18:59 Intake Total 1750 2064 Output Total 1930 855 Balance -180 1209 Weight 88.7 kg 88.7 kg Intake: IV 410 324 Cefepime 2 gm In Sodium 100 100 Chloride 0.9% 100 ml @ 25 mls/hr IVPB Q12HR [facility] Rx #:[id number] DAPTOmycin 500 mg In 50 Sodium Chloride 0.9% 50 ml @ 100 mls/hr IVPB Q24HR [facility] Rx#:[id number] Dextrose 5% in Water 1, 260 200 000 ml @ 20 mls/hr IV . Q24H [facility] Rx#:[id number] Pressure Bag 24 Tube Feeding 540 540 Other 800 1200 Output: Drainage 80 20 RAHEEM #2 80 20 Urine 1850 835 Other: Voiding Method Indwelling Catheter Indwelling Catheter ABP, PAP, CO, CI - Last Documented Arterial Blood Pressure 127/46 - Exam No acute distress, currently off sedation, responds by nodding her head. The patient appears much more stable today. HEENT examination is grossly unremarkable. Mucous membranes are moist. There is an orally placed endotracheal tube, and an orally placed OG tube. Neck supple. Full range of motion. No adenopathy thyromegaly or neck vein di stention. Cardiovascular examination reveals regular rhythm rate. S1-S2 normal. No S3 or S4. A soft systolic murmur is noted, grade 2/6. Lungs reveal scattered rhonchi and crackles. Breath sounds equal bilaterally. No wheezes are appreciated. Breath sounds are diminished throughout. Exam is unchanged.. The patient has a wound VAC over the sternum and the patient also has several RAHEEM drains within the chest with serosanguineous drainage at this point in time. Abdomen soft, bowel sounds are heard. No masses or tenderness. Extremities are intact. No cyanosis or clubbing. Mild edema is noted throughout. The patient does have a right brachial arterial line, the patient has a PICC line in the right upper extremity and she also has a femoral line in her right groin. Skin reveals a dressing over the sternal wound infection.. The RAHEEM drains are all in place and output of serosanguineous at this point in time. Neurologic examination shows improved responsiveness. The patient does not her head yes or no when asked certain questions. She does have profound motor weakness in all 4 extremities and the patient has adequate reflexes in both extremities. No hyperreflexia. No hyperreflexia. The patient is awake off sedation she is following some simple commands. She opens her eyes spontaneously. She responds to simple commands. - Labs CBC & Chem 7: 09/08/20 05:08 09/08/20 05:08 Labs: Abnormal Lab Results - Last 24 Hours (Table) 09/07/20 09/07/20 09/07/20 Range/Units 08:22 11:23 17:13 RBC (3.80-5.40) m/uL Hgb (11.4-16.0) gm/dL Hct (34.0-46.0) % RDW (11.5-15.5) % ABG pH 7.48 H (7.35-7.45) ABG pCO2 33 L (35-45) mmHg ABG Total CO2 26 H (19-24) mmol/L ABG O2 Saturation 99.2 H (94-97) % Potassium (3.5-5.1) mmol/L Chloride (98-107) mmol/L BUN (7-17) mg/dL Glucose (74-99) mg/dL POC Glucose (mg/dL) 132 H 123 H (75-99) mg/dL Calcium (8.4-10.2) mg/dL AST (14-36) U/L Alkaline Phosphatase (38-126) U/L Total Protein (6.3-8.2) g/dL Albumin (3.5-5.0) g/dL Urine Protein (Negative) Urine Blood (Negative) Urine RBC (0-5) /hpf Urine WBC (0-5) /hpf Urine Mucus (None) /hpf 09/07/20 09/07/20 09/08/20 Range/Units 18:57 23:12 05:08 RBC 2.50 L (3.80-5.40) m/uL Hgb 7.4 L (11.4-16.0) gm/dL Hct 22.9 L (34.0-46.0) % RDW 17.2 H (11.5-15.5) % ABG pH (7.35-7.45) ABG pCO2 (35-45) mmHg ABG Total CO2 (19-24) mmol/L ABG O2 Saturation (94-97) % Potassium (3.5-5.1) mmol/L Chloride (98-107) mmol/L BUN (7-17) mg/dL Glucose (74-99) mg/dL POC Glucose (mg/dL) 115 H (75-99) mg/dL Calcium (8.4-10.2) mg/dL AST (14-36) U/L Alkaline Phosphatase (38-126) U/L Total Protein (6.3-8.2) g/dL Albumin (3.5-5.0) g/dL Urine Protein 1+ H (Negative) Urine Blood Moderate H (Negative) Urine RBC 64 H (0-5) /hpf Urine WBC 7 H (0-5) /hpf Urine Mucus Rare H (None) /hpf 09/08/20 09/08/20 09/08/20 Range/Units 05:08 05:28 05:46 RBC (3.80-5.40) m/uL Hgb (11.4-16.0) gm/dL Hct (34.0-46.0) % RDW (11.5-15.5) % ABG pH 7.48 H (7.35-7.45) ABG pCO2 34 L (35-45) mmHg ABG Total CO2 27 H (19-24) mmol/L ABG O2 Saturation 99.0 H (94-97) % Potassium 3.4 L (3.5-5.1) mmol/L Chloride 114 H (98-107) mmol/L BUN 33 H (7-17) mg/dL Glucose 118 H (74-99) mg/dL POC Glucose (mg/dL) 122 H (75-99) mg/dL Calcium 8.2 L (8.4-10.2) mg/dL AST 39 H (14-36) U/L Alkaline Phosphatase 150 H (38-126) U/L Total Protein 5.9 L (6.3-8.2) g/dL Albumin 2.3 L (3.5-5.0) g/dL Urine Protein (Negative) Urine Blood (Negative) Urine RBC (0-5) /hpf Urine WBC (0-5) /hpf Urine Mucus (None) /hpf Microbiology - Last 24 Hours (Table) 09/03/20 18:02 Blood Culture - Preliminary Blood No Growth after 96 hours 09/02/20 18:52 Blood Culture - Preliminary Blood No Growth after 120 hours 09/01/20 14:40 Blood Culture - Final Blood No Growth after 144 hours Assessment and Plan Plan: 1 Acute hypoxemic and hypercapnic respiratory failure, secondary to incisional wound infection, with methicillin sensitive staph aureus, as well as pneumonia, and bilateral pleural effusions. The follow-up cultures as of 09/02/2020 were all negative and the patient remains on a combination of cefepime and daptomycin for now. Chest x-ray findings are stable with bilateral pulmonary infiltrates and interstitial infiltrates and small effusions. His chest x-ray from today is essentially stable. The patient was able to tolerate a pressure support of 8-12 and a PEEP of 5 yesterday for a total of 8 hours. Nevertheless she continued to have a high minute ventilation and no extubation was done as the patient remains high minute ventilation and she was quite weak and motor weakness was obvious an ongoing issue. Based on that, the patient was placed back on assist control and the same trial will be done today after being checked for her weaning parameters. 2 Postop day #5, status post excision of sternal wound, right pectoralis major myocutaneous flap, and left pectoralis major myocutaneous flap. Output is serosanguineous 3 Status post readmission on August 22, and intubation for respiratory failure on 08/25/2020 4 Sepsis, secondary to sternal wound infection, caused by methicillin sensitive staph aureus, with bacteremia. Repeat cultures are all negative and the patient remains on adequate antibiotic coverage for now. 5 Septic shock, secondary to sternal wound infection. The patient is currently on no pressors 6 Acute kidney injury, requiring a brief period of hemodialysis. Creatinine today is within normal limits 7 Acute metabolic acidosis, secondary to acute kidney injury. 8 Acute diastolic CHF with bilateral pleural effusions. 9 History of hypertension. 10 History of cervical stenosis. 11 Primary history of tobacco use. 12 Mild pulmonary fibrosis/interstitial lung disease. 13 Status post sternal exploration with sternal debridement, August 27. 14 Recent prior history of two-vessel bypass grafting, on August 10, with discharge on August 19. 15 Hypernatremia, recovered and the patient's sodium level has normalized. Plan: Keep the patient off sedation Check weaning parameters and for the patient is point is breathing trial with a pressure support of 12 and a PEEP of 5 . The concern is that the patient continues to have a higher minute ventilation and she may not be ready for weaning special that she is profoundly weak. Continue free water supplements through the OG I reduced the dose to 200 mL every 4 hours Continue enteral feeding for nutritional support continue cefepime and daptomycin Surgical follow-up on the wound and the RAHEEM drains Continue Lasix I don't think the patient is ready for extubation . She is doing progress. She is still significantly weak. The minute ventilation remains high. Continue daily trials once he has breathing Monitor the output through the wound VAC which is minimal at this point in time We'll coordinate with cardiothoracic surgery patient's care remove the triple-lumen catheter and send the tip for culture. The triple-lumen catheter is present in her right groin We'll continue following this patient with aggressive the consultants. Critical care evaluation that was done and more bertha 30 minutes Time with Patient: Greater than 30
[2020-09-08] MEDS: INSULIN ASPART (NovoLOG) 100 UNIT/ML VIAL SQ SCH ×4 (08:02→23:47)
--- NOTE | 2020-09-08 08:23 | XR ---
EXAMINATION TYPE: XR chest 1V portable DATE OF EXAM: 09/08/2020 COMPARISON: Chest x-ray 09/07/2020 HISTORY: Postop coronary artery bypass graft, abnormal chest x-ray TECHNIQUE: Single frontal view of the chest is obtained. FINDINGS: Right-sided PICC line shows the distal tip over the superior vena cava, endotracheal tube and NG tube are overlying appropriate positions, distal tip the NG tube not included on exam. Bilater al chest drains are in place, patient is post median sternotomy and left atrial appendage clip placem ent. Cardiac mediastinal silhouette is stable. Diffuse pleural parenchymal changes are not significan tly changed. Postop change noted to the cervical spine. No evident pneumothorax. No sizable effusion. IMPRESSION: Correlate for pneumonia, edema, ARDS.
[2020-09-08] MEDS: DAPTOmycin 500 MG in SODIUM CHLORIDE 0.9% 50 ML IVPB SCH (08:50)
[2020-09-08] MEDS: POTASSIUM BICARBONATE/CIT AC 20 MEQ TABLET.EFF NG-TUBE SCH ×2 (08:52→08:54)
[2020-09-08] MEDS: PANTOPRAZOLE 40 MG/10 ML VIAL IVP SCH (08:52)
[2020-09-08] MEDS: CEFEPIME 2 GM in SODIUM CHLORIDE 0.9% 100 ML IVPB SCH ×2 (08:52→20:09)
[2020-09-08] MEDS: FUROSEMIDE 10 MG/ML 4 ML VIAL IV SCH (08:52)
[2020-09-08] MEDS: CLOPIDOGREL 75 MG TAB PO SCH (08:53)
[2020-09-08] MEDS: HEPARIN SODIUM,PORCINE 5,000 UNIT/ML 1 ML VIAL SQ SCH ×3 (08:53→23:47)
[2020-09-08] MEDS: METOPROLOL TARTRATE 50 MG TAB PO SCH ×2 (08:53→20:09)
[2020-09-08] MEDS: CHLORHEXIDINE GLUCONATE 15 ML CUP MUCOUS MEM SCH ×2 (08:53→20:09)
[2020-09-08] MEDS: ASPIRIN 325 MG TAB PO SCH (08:53)
[2020-09-08] MEDS: DRY MOUTH SPRAY 44.3 SPRAY/44.3 ML SPRAY MUCOUS MEM SCH ×4 (08:53→20:10)
--- NOTE | 2020-09-08 09:35 | P.PN ---
Subjective Progress Note Date: 09/08/20 Principal diagnosis: Shortness of breath, acute diastolic heart failure, bilateral pleural effusion, lactic acidosis, hypercapnic respiratory failure requiring BiPAP followed by me chanical ventilation, deep sternal wound infection with MSSA, acute kidney injury, acute hyperkalemia, hyponatremia, acute transaminitis, hypotension requiring vasopressors use, acute anemia. Past medical history significant for coronary artery disease with left main stenosis status post 2 vessel CABG on 08/10/2020 with expected postoperative acute blood loss anemia, hypotension, and urinary retention as well as candidal stomatititus, hyponatremia, pulmonary fibrosis, asthma, hypertension, hyperlipidemia, previous tobacco dependence, obesity, osteoarthritis, cervical stenosis post anterior cervical disc decompression, discectomy and fusion, TIA as a child, family history of premature coronary artery disease. Paroxysmal Afib with RVR. POD #12 sternal exploration with sternal debridement. POD #5 removal of table and partial resection of the manubrium as well as partial sternectomy by Dr. Sethi, right pectoralis major myocutaneous flap, left pectoralis major myocutaneous flap by Dr. Whittaker. The patient was seen in follow-up today 09/08/2020 at her bedside in the intensive care unit. Currently the patient is laying in bed, is awake, alert and following some verbal cues. She is moving all 4 extremities with verbal stimuli, wiggling her toes, moving her legs, squeezing her hands and shaking her head yes and no appropriately with questions. She remains intubated with mechanical ventilator support, current mechanical ventilator settings are assist control 20, TV 400, FiO2 35% with a PEEP of 5. ABG results this morning show a pH 7.48, pCO2 34, pO2 98, HCO3 25, oxygen saturation 99, base excess 2.0. Oxygen saturations on current mechanical ventilator settings are 98%. Yesterday she did tolerate a CPAP weaning trial and went 8 hours on the weaning trial. OG tube remains in place with continuous tube feeding vital high-protein infusing at 54 mL per hour with automatic water flushes at 400 mL every 4 hours. She remains hemodynamically stable and is currently on no inotropic pressure support. Prevena dressing remains clean dry and intact to her sternal incision. Scant serosanguineous drainage. 3 RAHEEM drains remain in place to her chest with scant serosanguineous drainage. Laboratory results this morning show a WBC count of 10.0, hemoglobin 7.4, hematocrit 22.9, platelets 298, sodium 145, potassium 3.4, BUN 33, creatinine 0.85, AST 41 and ALT 23. She has been afebrile the last 24 hours and she remains on daptomycin and cefepime for antibiotic coverage managed by infectious disease. Objective - Vital Signs Vital signs: Vital Signs Temp 99.9 F H 09/08/20 04:00 Pulse 102 H 09/08/20 08:25 Resp 32 H 09/08/20 06:30 BP 100/64 09/08/20 06:30 Pulse Ox 98 09/08/20 06:30 Intake & Output 09/07/20 09/08/20 09/08/20 18:59 06:59 18:59 Intake Total 1750 2064 254 Output Total 1930 855 150 Balance -180 1209 104 Weight 88.7 kg 88.7 kg Intake: IV 410 324 Cefepime 2 gm In Sodium 100 100 Chloride 0.9% 100 ml @ 25 mls/hr IVPB Q12HR [facility] Rx #:[id number] DAPTOmycin 500 mg In 50 Sodium Chloride 0.9% 50 ml @ 100 mls/hr IVPB Q24HR [facility] Rx#:[id number] Dextrose 5% in Water 1, 260 200 000 ml @ 20 mls/hr IV . Q24H [facility] Rx#:[id number] Pressure Bag 24 Tube Feeding 540 540 54 Other 800 1200 200 Output: Drainage 80 20 RAHEEM #2 80 20 Urine 1850 835 150 Other: Voiding Method Indwelling Catheter Indwelling Catheter ABP, PAP, CO, CI - Last Documented Arterial Blood Pressure 127/46 - Constitutional Constitutional Comment(s): This is 75-year-old female patient who remains intubated with mechanical ventil ator support. He remains off sedation. Currently moving all 4 extremities with verbal stimuli with continued generalized weakness. She is shaking her head yes and no appropriately to questions. General appearance: Present: cooperative, no acute distress - EENT Eyes: Present: PERRLA, normal appearance. Absent: scleral icterus ENT: Present: hearing grossly normal - Neck Details: Neck is supple, no JVD. No lymphadenopathy. - Respiratory Details: Lung sounds with scattered rhonchi throughout, manager community relations bilateral bases. Res pirations are symmetrical and nonlabored with mechanical ventilator support. Current mechanical ventilator settings are as follows, assist control 20, TV 400, FiO2 35%, PEEP 5. Oxygen saturations 98% on current mechanical ventilator settings. - Cardiovascular Details: Regular rhythm and tachycardic rate. S1 and S2 present, negative for S3, gallop or murmur. Bedside telemetry showing sinus tachycardia heart rate 116 BPM. Generalized +1 edema. Heart hugger is in place. Knee-high ANGEL hose and sequential compression devices in place to bilateral lower extremities. - Gastrointestinal Gastrointestinal Comment(s): Abdomen is soft, nontender and nondistended. Active bowel sounds present in all 4 abdominal quadrants. No guarding or rigidity. Fecal management system in place with liquid brownish green stool. OG tube in place with tube feedings vital high-protein infusing at goal rate of 54 mL per hour with automatic water flushes 400 mL every 4 hours. - Genitourinary Genitourinary Comment(s): Yu catheter for accurate I&O. Draining clear yellow urine with 410 mL output in the last 8 hours. - Integumentary Integumentary Comment(s): Skin is warm and dry. No clubbing or cyanosis is present. Prevena dressing remains in place to her sternal incision. Scant serosanguineous drainage. 3 RAHEEM drains within the chest with scant serosanguineous drainage. Left lower extremity EVH site clean, dry and approximated. No drainage redness is present. - Neurologic Neurologic Comment(s): Awake and alert. Moving all 4 extremities with verbal stimuli with continued generalized weakness. Shaking her head yes and no appropriate to questions. - Musculoskeletal Musculoskeletal: Present: generalized weakness, strength equal bilaterally - Psychiatric Psychiatric Comment(s): Awake and alert. Unable to accurately assess her orientation as she remains intubated with mechanical ventilator support. - Allied health notes Allied health notes reviewed: nursing - Labs CBC & Chem 7: 09/08/20 05:08 09/08/20 05:08 Labs: Abnormal Lab Results - Last 24 Hours (Table) 09/07/20 09/07/20 09/07/20 Range/Units 11:23 17:13 18:57 RBC (3.80-5.40) m/uL Hgb (11.4-16.0) gm/dL Hct (34.0-46.0) % RDW (11.5-15.5) % ABG pH (7.35-7.45) ABG pCO2 (35-45) mmHg ABG Total CO2 (19-24) mmol/L ABG O2 Saturation (94-97) % Potassium (3.5-5.1) mmol/L Chloride (98-107) mmol/L BUN (7-17) mg/dL Glucose (74-99) mg/dL POC Glucose (mg/dL) 132 H 123 H (75-99) mg/dL Calcium (8.4-10.2) mg/dL AST (14-36) U/L Alkaline Phosphatase (38-126) U/L Total Protein (6.3-8.2) g/dL Albumin (3.5-5.0) g/dL Urine Protein 1+ H (Negative) Urine Blood Moderate H (Negative) Urine RBC 64 H (0-5) /hpf Urine WBC 7 H (0-5) /hpf Urine Mucus Rare H (None) /hpf 09/07/20 09/08/20 09/08/20 Range/Units 23:12 05:08 05:08 RBC 2.50 L (3.80-5.40) m/uL Hgb 7.4 L (11.4-16.0) gm/dL Hct 22.9 L (34.0-46.0) % RDW 17.2 H (11.5-15.5) % ABG pH (7.35-7.45) ABG pCO2 (35-45) mmHg ABG Total CO2 (19-24) mmol/L ABG O2 Saturation (94-97) % Potassium 3.4 L (3.5-5.1) mmol/L Chloride 114 H (98-107) mmol/L BUN 33 H (7-17) mg/dL Glucose 118 H (74-99) mg/dL POC Glucose (mg/dL) 115 H (75-99) mg/dL Calcium 8.2 L (8.4-10.2) mg/dL AST 39 H (14-36) U/L Alkaline Phosphatase 150 H (38-126) U/L Total Protein 5.9 L (6.3-8.2) g/dL Albumin 2.3 L (3.5-5.0) g/dL Urine Protein (Negative) Urine Blood (Negative) Urine RBC (0-5) /hpf Urine WBC (0-5) /hpf Urine Mucus (None) /hpf 09/08/20 09/08/20 Range/Units 05:28 05:46 RBC (3.80-5.40) m/uL Hgb (11.4-16.0) gm/dL Hct (34.0-46.0) % RDW (11.5-15.5) % ABG pH 7.48 H (7.35-7.45) ABG pCO2 34 L (35-45) mmHg ABG Total CO2 27 H (19-24) mmol/L ABG O2 Saturation 99.0 H (94-97) % Potassium (3.5-5.1) mmol/L Chloride (98-107) mmol/L BUN (7-17) mg/dL Glucose (74-99) mg/dL POC Glucose (mg/dL) 122 H (75-99) mg/dL Calcium (8.4-10.2) mg/dL AST (14-36) U/L Alkaline Phosphatase (38-126) U/L Total Protein (6.3-8.2) g/dL Albumin (3.5-5.0) g/dL Urine Protein (Negative) Urine Blood (Negative) Urine RBC (0-5) /hpf Urine WBC (0-5) /hpf Urine Mucus (None) /hpf Microbiology - Last 24 Hours (Table) 09/03/20 18:02 Blood Culture - Preliminary Blood No Growth after 96 hours 09/02/20 18:52 Blood Culture - Preliminary Blood No Growth after 120 hours 09/01/20 14:40 Blood Culture - Final Blood No Growth after 144 hours - Imaging and Cardiology Chest x-ray: report reviewed, image reviewed Assessment and Plan Assessment: 1. Shortness of breath, acute diastolic heart failure, EF 55-60% on current TTE, bilateral pleural effusions 2. Lactic acidosis, septic shock, blood cultures positive for MSSA 3. Hypercapnic, hypoxic respiratory failure requiring BiPAP, with subsequent intubation and mechanical ventilation 4. Open sternal wound, surgically created, deep sternal wound infection with MSSA, S/P surgical exploration and debridement with daily dressing changes 5. Leukocytosis with bandemia, bandemia resolved, WBC trending down 6. Acute kidney injury, metabolic acidosis, metabolic acidosis resolved, kidney function returning to normal after receiving dialysis 7. Acute hyperkalemia, resolved 8. Acute transaminitis secondary to hypoperfusion, resolving 9. History of hypertension, hypotensive this admission requiring vasopressors, currently off vasopressors 10. Acute anemia, post transfusion PRBCs, on ara 11. Coronary artery disease with left main stenosis status post 2 vessel CABG on 08/10/2020 with expected postoperative acute blood loss anemia, hypotension, and urinary retention as well as candidal stomatititus 12. Hyponatremia, resolved 13. Pulmonary fibrosis, asthma 14. Hyperlipidemia, treated 15. Previous tobacco dependence 16. Obesity 17. Paroxysmal afib w/ RVR, atrial flutter, status post exclusion of the left atrial appendage using a 35 mm AtriClip, currently sinus rhythm 18. 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 Ventilator management per pulmonary medicine. Weaning trials managed by pulmonary critical care medicine. The patient tolerated 8 hours of CPAP trial yesterday 09/07/2020. 2. Nephrology following, avoid nephrotoxins, diuretic management per nephrology recommendations. She remains on Lasix 40 mg IV daily. 3. Infectious disease following, blood cultures from 09/01/2020 and 09/02/2020 currently show no growth. Sputum culture from 09/04/2020 final result shows no growth. Remains on antibiotic coverage of cefepime and daptomycin. Previous blood, sputum and sternal wound cultures showed positive for MSSA. Afebrile the last 24 hours. 4. Continue aspirin, Plavix, , statin and beta sisi. We will increase metoprolol tartrate as tolerated. currently on metoprolol tartrate 50 mg by mouth twice a day. 5. No anticoagulation at this time. 6. Will continue to monitor daily labs, chest x-rays, and ABGs. 7. 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 The myopathy seems to continue to improve as the patient is moving her bilateral upper and lower extremities with verbal stimuli. Still with profound generalized weakness. Shaking her head yes and no appropriately to verbal stimuli. 8. GI/DVT prophylaxis. 9. Continue tube feeding for nutrition, per dietitian recommendations. Currently at goal rate of 54 mL per hour vital high-protein. 10. Patient's daughter Roberta updated on her care per phone. 11. Replace electrolytes per protocol. 12. Continue per Prevena dressing to her sternal incision. Continue to monitor RAHEEM drainage. 13. Continue to follow culture results. 14. Surgical pathology results showed bone and soft tissue, sternum, debridement: Bone with focal features compatible with acute osteomyelitis. Attached fibrous soft tissue with abundant acute and chronic inflammation. Negative for granulomatous inflammation or malignancy 15. More recommendations to follow based on patient's clinical course. Time with Patient: Greater than 30
--- NOTE | 2020-09-08 10:33 | P.PN ---
Subjective Patient is seen in follow-up for acute kidney injury. Renal function back to baseline. Nonoliguric. Maintained on IV Lasix. Also receiving tube feeding. Currently on 35% FiO2. Sodium level improving with free water flushes. Vital signs: Tachycardic. Otherwise stable. HEENT: Intubated. LUNGS: Breath sounds decreased. HEART: Tachycardic. ABDOMEN: Soft, no distention noted. EXTREMITITES: Trace edema. Objective - Vital Signs Vital signs: Vital Signs Temp 99.4 F 09/08/20 09:00 Pulse 88 09/08/20 10:00 Resp 27 H 09/08/20 10:00 BP 128/61 09/08/20 10:00 Pulse Ox 99 09/08/20 10:00 Intake & Output 09/07/20 09/08/20 09/08/20 18:59 06:59 18:59 Intake Total 1750 2064 254 Output Total 1930 855 900 Balance -180 1209 -646 Weight 88.7 kg 88.7 kg Intake: IV 410 324 Cefepime 2 gm In Sodium 100 100 Chloride 0.9% 100 ml @ 25 mls/hr IVPB Q12HR [facility] Rx #:[id number] DAPTOmycin 500 mg In 50 Sodium Chloride 0.9% 50 ml @ 100 mls/hr IVPB Q24HR [facility] Rx#:[id number] Dextrose 5% in Water 1, 260 200 000 ml @ 20 mls/hr IV . Q24H [facility] Rx#:[id number] Pressure Bag 24 Tube Feeding 540 540 54 Other 800 1200 200 Output: Drainage 80 20 RAHEEM #2 80 20 Urine 1850 835 900 Other: Voiding Method Indwelling Catheter Indwelling Catheter ABP, PAP, CO, CI - Last Documented Arterial Blood Pressure 104/41 - Labs CBC & Chem 7: 09/08/20 05:08 09/08/20 05:08 Labs: Abnormal Lab Results - Last 24 Hours (Table) 09/07/20 09/07/20 09/07/20 Range/Units 11:23 17:13 18:57 RBC (3.80-5.40) m/uL Hgb (11.4-16.0) gm/dL Hct (34.0-46.0) % RDW (11.5-15.5) % ABG pH (7.35-7.45) ABG pCO2 (35-45) mmHg ABG Total CO2 (19-24) mmol/L ABG O2 Saturation (94-97) % Potassium (3.5-5.1) mmol/L Chloride (98-107) mmol/L BUN (7-17) mg/dL Glucose (74-99) mg/dL POC Glucose (mg/dL) 132 H 123 H (75-99) mg/dL Calcium (8.4-10.2) mg/dL AST (14-36) U/L Alkaline Phosphatase (38-126) U/L Total Protein (6.3-8.2) g/dL Albumin (3.5-5.0) g/dL Urine Protein 1+ H (Negative) Urine Blood Moderate H (Negative) Urine RBC 64 H (0-5) /hpf Urine WBC 7 H (0-5) /hpf Urine Mucus Rare H (None) /hpf 09/07/20 09/08/20 09/08/20 Range/Units 23:12 05:08 05:08 RBC 2.50 L (3.80-5.40) m/uL Hgb 7.4 L (11.4-16.0) gm/dL Hct 22.9 L (34.0-46.0) % RDW 17.2 H (11.5-15.5) % ABG pH (7.35-7.45) ABG pCO2 (35-45) mmHg ABG Total CO2 (19-24) mmol/L ABG O2 Saturation (94-97) % Potassium 3.4 L (3.5-5.1) mmol/L Chloride 114 H (98-107) mmol/L BUN 33 H (7-17) mg/dL Glucose 118 H (74-99) mg/dL POC Glucose (mg/dL) 115 H (75-99) mg/dL Calcium 8.2 L (8.4-10.2) mg/dL AST 39 H (14-36) U/L Alkaline Phosphatase 150 H (38-126) U/L Total Protein 5.9 L (6.3-8.2) g/dL Albumin 2.3 L (3.5-5.0) g/dL Urine Protein (Negative) Urine Blood (Negative) Urine RBC (0-5) /hpf Urine WBC (0-5) /hpf Urine Mucus (None) /hpf 09/08/20 09/08/20 Range/Units 05:28 05:46 RBC (3.80-5.40) m/uL Hgb (11.4-16.0) gm/dL Hct (34.0-46.0) % RDW (11.5-15.5) % ABG pH 7.48 H (7.35-7.45) ABG pCO2 34 L (35-45) mmHg ABG Total CO2 27 H (19-24) mmol/L ABG O2 Saturation 99.0 H (94-97) % Potassium (3.5-5.1) mmol/L Chloride (98-107) mmol/L BUN (7-17) mg/dL Glucose (74-99) mg/dL POC Glucose (mg/dL) 122 H (75-99) mg/dL Calcium (8.4-10.2) mg/dL AST (14-36) U/L Alkaline Phosphatase (38-126) U/L Total Protein (6.3-8.2) g/dL Albumin (3.5-5.0) g/dL Urine Protein (Negative) Urine Blood (Negative) Urine RBC (0-5) /hpf Urine WBC (0-5) /hpf Urine Mucus (None) /hpf Microbiology - Last 24 Hours (Table) 09/03/20 18:02 Blood Culture - Preliminary Blood No Growth after 96 hours 09/02/20 18:52 Blood Culture - Preliminary Blood No Growth after 120 hours 09/01/20 14:40 Blood Culture - Final Blood No Growth after 144 hours Assessment and Plan Plan: Assessment: 1. Acute kidney injury secondary to ATN secondary to hypotension/sepsis on admission and then from nafcillin. Baseline creatinine near 1. She did require hemodialysis earlier this admission has subsequently recovered kidney function. Creatinine 0.85 today. 2. Volume overload. Improving with diuresis. 3. Hypernatremia from lack of oral water intake. Improving. 4. Wound dehiscence of the sternum with MSSA bacteremia. On antibiotics. Also underwent sternal debridement this admission. 5. Acute hypoxia respiratory failure. Currently on 40% FiO2. 6. Status post CABG in 08/10/2020. 7. Acute blood loss anemia requiring multiple blood transfusions this admission. Also on Aranesp. 8. Hypokalemia from diuresis. Being replaced. Plan: Maintain IV Lasix. Maintain tube feeding. Maintain free water flushes - rate was decreased by the ICU team today. Continue to monitor renal function and urine output. Wean FiO2.
--- NOTE | 2020-09-08 11:46 | P.PN ---
Subjective Progress Note Date: 09/08/20 HISTORY OF PRESENT ILLNESS This is a 75-year-old female patient of Dr. Rich Avila, Dr. Sloan and Dr. Guadalupe. She has a past medical history significant for hypertension, hype rlipidemia, pulmonary fibrosis, asthma, obesity, remote history of tobacco dependence with smoking 32 years ago, osteoarthritis, cervical stenosis post anterior cervical decompression, discectomy and fusion, TIA as a child at age 11 and family history of premature coronary artery disease with her father being diagnosed in his early 50s. Recently, the patient has been experiencing episodes of shortness of breath over the past 6 months with just minimal activity. She also complained of some lower extremity swelling which did resolve with some diuresis. she underwent a stress test which showed anterior wall ischemia with small reversible defect. a 2-D echocardiogram which showed mild aortic valve insufficiency, mild mitral valve regurgitation, mild tricuspid valve regurgitation and left ventricular function to be normal with an ejection fraction of 55%. Subsequently she underwent an elective heart catheterization on 07/27/2020 which demonstrated a left main stenosis with QING with a calculation of 2.6 mm, a 40% stenosis to her mid left anterior descending coronary artery and a 30% stenosis to her right coronary artery. Due to the patient's symptoms and findings on her heart catheterization of left main stenosis a consult was placed to Dr. Sethi from cardiothoracic surgery for further evaluation and treatment recommendations. During her preoperative workup her serum sodium level was found to be 120 and was admitted prior to surgery for treatment of hyponatremia. Last admission On 08/06/2020-08/19/20 the patient was admitted to the hospital for treatment of her hyponatremia, and once her hyponatremia was resolved on 08/10/2020, asubsequently taken to the operating room where Dr. Sethi performed a double vessel coronary artery bypass grafting surgery using the left internal mammary artery to left anterior setting coronary artery, a reverse greater saphenous vein graft from the aorta to the first obtuse marginal coronary artery, endoscopic harvesting of the left greater saphenous vein from the groin Upon completion of the surgery the patient was transferred to the intensive care unit where she was recovered, monitored hemodynamically and where she progressed cardiac rehabilitation phase Her oxygen was titrated down, she continued to work with physical/occupational therapy and cardiac rehabilitation, she was tolerating an oral diet, her pain was well controlled without narcotics and she was ready to be discharged home with [facility] care on postoperative day #9. Did not require home O2 on last admission however she required new medication changes including diuretics during that last admission. Patient comes in in worsening shortness of breath anasarca, no chest pain, has BARKER, edma without leg pain new medications from last visit was compliant, requiring lipitor 75bid, tolvaptan. meotprolol 75 bid plavix, lasix 40 mg daily losartain 25 asa 325, ferrous sulfate and fluconazole. patient comes in now for CHF, anarsarc ely pleural effusion, consult with dr Sethi. and cardiology, if okay will be cardiothoracic surgeon can also perform the thoracentesis, however with hypoxemia, also have requested Dr. Gamboa's services. Patient has a hemoglobin of 7.0 on and 3, platelet count of 305, hemoglobin right to admission was 8.0 denies any Hemoccult stools, creatinine was 1.60 from a previous of 0.9 blood pressure is in the low 90s systolic, pulse ox, 90 on 4 L nasal cannula, patient was not discharged with home O2 during her last admission 08/24: A-Team was called for mental status changes. Patient was found to have a blood pressure 99/65, heart rate of 85 and pulse ox of 96% on a nonrebreather with respiratory rate of 32. Patient was transferred to the ICU. She was started on vancomycin and cefepime. Patient has been seen by cardiology with plan to continue vasopressor support, patient may need pleurocentesis. Stat echocardiogram was done to rule out pericardial effusion or tamponade. Patient has been seen by nephrology for acute kidney injury secondary to ATN secondary to hypotension and cardiorenal syndrome. Patient is currently on bicarb drip, status post Lasix 80 mg IV once. Renal replacement therapy to be initiated immediately. Vascular consult in place for a dialysis catheter placement and start hemodialysis today with second treatment tomorrow. Sternal wound was producing thick yellowish brown fluid, was opened approximately 2 cm and deep culture was taken, packed and covered with 4 x 4 dressing. She is requiring vasopressors. She is hypothermic and warming blanket is in place.Patient had minimal output yesterday and none today. She is status post 2.5 L of fluids. 08/25 patient was examined in the ICU. She was able to maintain oxygenation on BiPAP overnight switch to high flow 15 m this morning. Patient did have episodes of agitation last night and was started on Seroquel. She did receive a dose of Seroquel prior to admission and was found to be resting comfortably. Patient is off pressors and bicarbonate drip and metabolic acidosis seemed to have cleared off. On evaluation of patient's lab, WBC is 14.3, hemoglobin 6.5 platelet 208 ABG this morning has a pH of 7.47 CO2 74. Bicarb 29. Sodium has improved to 126 chloride 96 BUN 43 creatinine 2.79 lactic acid has improved to 2.9 calcium 7 liver enzymes elevated AST at 2874 ALT 1469 alkaline phosphatase 192 CRP 356 BNP 13,000 UA does suggest some infection with WBC of 88 hyaline casts 33 protein 2+ urine blood trace nitrite negative leukocyte Estrace negative. Wound cultures positive for presumptive staph aureus. Patient's blood culture from yesterday are positive with presumptive staph aureus. Repeat blood cultures ordered. Patient received 1 unit of PRBCs for low hemoglobin. Urine output has improved to 20-40 mL's per hour. Patient did receive a dose of DDAVP for hyponatremia. Normal saline is running at 50 mL per hour. Did receive hemodialysis today with 2 L ultrafiltration. Patient was also noted to be in A. fib with RVR intermittently and her dose of Lopressor was increased to 25 mg every 8 hours. Continue daptomycin and cefepime for antibiotic coverage. Monitor patient's for QTC prolongation well on Seroquel. Patient has significant dehiscence of wound and may need I&D 08/26: She was intubated and placed on mechanical ventilation overnight with pulse ox of 96%, tidal volume 450, FiO2 50, PEEP of 5. Temperature max last evening was 101.2. Heart rate 82, blood pressure 120/53. WBC 9.6, hemoglobin 10.8, platelet count 159. Sodium 134, potassium 4.7, chloride 100, CO2 25, BUN 14 creatinine 1.83. Blood sugars running between 100 2753. Total bilirubin 3.3, AST 1067, ALT 993, alkaline phosphatase 251. Magnesium 2.1. Patient is on vasopressors. desk monitor atrial flutter alternating with sinus rhythm. Patient is also on propofol and Seroquel discontinued. Thoracic surgery is possible taking her to or for I&D and considering wound VAC. Patient is on Plavix. Echocardiogram reveals normal LV function and mild aortic stenosis. Patient is currently on daptomycin and cefepime per Dr. Mcintyre. Urine output remains low at 15-20 mL per hour. Should she is scheduled for third hemodialysis treatment today. Patient is scheduled for Lasix 80 mg IV this afternoon. 08/27 she remains in the ICU, intubated and mechanically ventilated. Patient is going to the OR for debridement today. Patient remains intubated on 50% FiO2 and PEEP of 5, assist control rate of 20volume 450. Continues to require Levophed at 11mcg/ hr . Blood clots and culture positive for MSSA. Urine output is 50-60 mL per hour. Patient continues to be on sedation from propofol at 50 max per KG permanent. IV fluids at KVO. Patient continues to have good urine output after a dose of 80 mg of IV Lasix today. Vision tolerated 2.5 L ultrafiltration yesterday and is started on hemodialysis on August 24. No holiday sedation today. Plan to continue Lasix 80 IV once daily and holding hemodialysis. Anticoagulation held for debridement. 08/28 patient remains in the ICU. Did have sternal Exploration and debridement yesterday remains sedated on propofol. Patient continues to have high temp of 101.6, to 233 tachycardic 111 blood pressure 106/51 oxygen saturation 95% on 50% FiO2. Labs suggest a leukocytosis of 24.3 hemoglobin stable at 10.7 platelet count has dipped dropped to 78, he really suggest a pH of 7.53 pCO2 30 PaO2 57, chloride of 110 potassium 3.5 and anion gap of 6 BUN 46 creatinine 0.9 calcium 7.8 ALT 3:15 alkaline phosphatase 312 AST 112 blood cultures from 08/26 positive for staph aureus. Urine output 1.2 L in 24 hours Repeat blood cultures sent today. Patient continues to be normal sinus rhythm not currently on any anticoagulation at the possibility of going for another debridement. Patient's continues to be on levo fed and still stays intubated. Continue IV Lasix. Patient initiated on IV Lasix 08/29: Patient remain in the ICU, remain on mechanical ventilation, sternal exploration and debridement was done and still have packing area within open wound at this point. Oxygenation is better patient is not 3 to be off vent at this point. Her urine output has been good and hemodynamically stable. 08/30: Patient still on mechanical ventilation, his sternum 1 and was changed today still have significant amount of infection and pus was packed still open. Patient remain on nafcillin and Moni mycin. Still having positive blood culture. 08/31: Patient is more awake today doing trial of weaning parameter try to get patient off the respirator, her incision and infection along the sternum is no change still have packing on still on IV antibiotics. Hemodynamically is more stable. 09/01: Patient evaluated in the ICU, continues on mechanical ventilation. Wound packing was removed yesterday, purulence was noted on the packing, deep near the heart and purulence around the heart. She continues on IV clindamycin and nafcillin. Patient was taken off sedation yesterday for a trial of weaning, but she became hypertensive and tachypneic so she is placed back on sedation. 09/02: Patient remains intubated and on mechanical ventilation with tidal volume 400, FiO2 of 50% and PEEP of 5. Patient has been off sedation since Monday. She is receiving OG tube feedings. She appears to be opening meaning her eyes and can shake her head. Otherwise not moving extremities. She has a wound VAC in place to the sternal wound. Wound cultures and blood culture positive for MSSA. She is scheduled for sternal wound excision and debridement with flap reconstruction and graft tomorrow with Dr. Whittaker. Repeat blood work reveals WBC of 13.6, hemoglobin 8.5. BUN 66 and creatinine 1.62, potassium 3.2 and has been replaced, blood sugars running between 107 and 132. Because renal functioning is worsening, nephrology has recommended holding nafcillin. Repeat chest x-ray reveals correlate for pneumonia, edema, ARDS. 09/03: She remains in the intensive care unit intubated and on mechanical ventilation with tidal volume 400, FiO2 40, PEEP of 5. Patient is awake with eyes open. She nodded her head no to having pain. She had a temperature this morning of 101.6 at 6 AM. Antibiotics are currently in the form of Kefzol. Repeat chest x-ray was done this morning and report is pending. Patient has been seen by neurology and doubt critical illness neuropathy. CAT scan of the brain and cervical spine done that showed no acute fracture or dislocation in the cervical spine. No acute intracranial hemorrhage, mass effect or midline shift. Ongoing airspace disease. Cardiology has recommended reinitiating statin. Temperature max 101.6, heart rate 101, blood pressure 117/52, pulse ox 95%. Repeat blood work reveals WBC 15.4, hemoglobin 8.3, platelet count 243. Sodium 149, potassium 2.8, chloride 111, CO2 28, BUN 66 and creatinine 1.49. Total bilirubin 2.4, AST 43, ALT 33 and alkaline phosphatase 260. All previous blood cultures have been positive for staph aureus MSSA. A repeat blood culture on August 2029 showing no growth at 24 hours. 09/04: Yesterday, patient underwent excision of sternal wound, partial sternotomy and pectoralis flap procedure. This morning, patient had new lines done by pulmonary medicine. Dr. Mcintyre has recommended continuing Kefzol and repeat blood cultures are in progress. Repeat chest x-ray reveals rotated exam, findings similar to prior, correlate for edema, pneumonia, ARDS. Cardiothoracic surgeryhas ordered a consult with Dr. Yuan. He has evaluated patient for global weakness and does not think she has new cervical spine issues that would cause her global weakness.patient continues to have fever with temperature maximum 102.2, tachycardic in the low 100s, respiratory rate 30, blood pressure 103/60, pulse ox 98%. She remains intubated and on mechanical ventilation with tidal volume 400, FiO2 50, PEEP of 5. WBC 17.5, hemoglobin 7.2, platelet count 328. Sodium 149, potassium 3.8, chloride 115, CO2 26, BUN 59 and creatinine 1.37. Blood sugars running 129-144. Magnesium 2.6. Total bilirubin 2.0, AST 39, alkaline phosphatase 197, ALT 19.. sputum culture has been obtained. Most recent blood culture from September 02 showing no growth at 24 hours and blood culture from September 01 is no growth at 48 hours. Patient is currently on very minimal sedation. 09/05: Patient remains in the ICU, intubated and on mechanical ventilation with tidal volume 400, FI02 40% and peep 5. Patient continues to run fevers. Dr. Mcintyre has changed antibiotics to cefepime and daptomycin. Blood cultures dated September 01, , are showing no growth. Sputum culture is in process. desk monitor sinus tachycardia. Heart rate has been running between 108 and 121, respiratory rate 31, blood pressure 90/32, pulse ox 98%. She remains on low dose norepinephrine. Patient is off sedation with eyes open. She is not moving extremities. She has been evaluated by orthopedic spine and spinal etiology has essentially been ruled out. Patient is also been evaluated by neurology and critical care neuropathy has also been essentially ruled out. Patient stabilized, hopefully a MRI can be performed. WBC 13.4, hemoglobin 5.4 and this was rechecked, platelet count 313, sodium 152, potassium 3.6, BUN 45 and creatinine 1.2. Patient is receiving 1 unit of packed RBCs. Nephrology is continuing IV Lasix 40 mg daily. Patient is on PEG tube feedings and tolerating. 09/06: Patient remains in intensive care unit. She is intubated and on mechanical ventilation with tidal volume 400, FiO2 40, PEEP 5. The patient has her eyes open, she is responsive with facial movement, she is able to minimally move lower extremities. She has a fecal management system in place as well as Yu catheter with good urine output. Patient was running fevers yesterday until evening. Patient has been afebrile following a reading of 1800 last night of 100.9. She is on IV antibiotics with cefepime and daptomycin. Heart rate 95-112, respiratory rate 28. Repeat chest x-ray reveals cardiomegaly with increased alveolar and interstitial edema and/or infiltrates bilaterally remain present. Possible ARDS. Hemoglobin today is at 8 status post She is continued on IV Lasix per nephrology. Potassium replaced. W BC 10.6, platelet count 276. Sodium 150, potassium 3.6, chloride 119, CO2 24, BUN 42 and creatinine 1.03. Blood sugar 140. Patient is receiving tube feedings at goal rate. 09/07: She remains in the intensive care unit, intubated and on mechanical ventilation with FiO2 of 40%, PEEP of 5. She remains off sedation and is awake and able to follow some minimal commands. Mature max 101.6, heart rate 104, respiratory rate 34, blood pressure 81/30, pulse ox 97%. AP blood work reveals WBC 11.8, hemoglobin 9.5, platelet count 347. Sodium 148, potassium 3.7, chloride 117, CO2 25, BUN 38 and creatinine 0.96. Blood sugar running between 112 117. Magnesium 2.0. Total bilirubin 1.5, AST 41, ALT 19, alkaline phosphatase 181. Albumin 2.4. Blood cultures on every remain without g rowth at 120 hours. Sputum culture has been finalized no growth. Patient is continued on cefepime and optimizing. PICC line is being inserted this morning by interventional radiology. OG tube with feedings at goal. Patient is not currently on vasopressors. 09/08: Patient remains in the intensive care unit intubated and on mechanical ventilation with tidal volume 400, FiO2 35 and PEEP of 5. Patient was on CPAP yesterday for about 8 hours but was unable to tolerate for only short period today. Her mental status has been labile. She is intermittently following commands with no response and staring. Patient appears to be uncomfortable. Generalized anasarca noted. She has brown liquid stool from fecal management system and we will check a C. diff toxin. Most likely diarrhea is only from tube feedings. Temperature max 101.6. Heart rate 113, respiratory rate 39, blood pressure 120/61, pulse ox 99%. Repeat chest x-ray reveals correlate for pneumonia, edema, ARDS. Repeat blood work reveals WBC 10, hemoglobin 7.4, platelet count 298. Sodium 145, potassium 3.4, chloride 114, CO2 24, BUN 33 and creatinine 0.85. Blood sugars are running between 115 and 122. Total bilirubin 1.2, AST 39, ALT 23, and phosphatase 150. Urinalysis sent last evening showed blood moderate, RBC 64, WBC 7. Blood cultures since every are showing no growth. REVIEW OF SYSTEMS Unable to obtain due to mental status change/intubation. PHYSICAL EXAMINATION Gen: This is a 75-year-old female. Patient is resting in ICU bed and appears to be comfortable. HEENT: Head is atraumatic, normocephalic. Pupils equal, round. Sclerae is anicte sergio. Patient intubated and on mechanical ventilation. NECK: Supple. No JVD. No lymphadenopathy. LUNGS: Diminished. No wheezes or rhonchi. No intercostal retractions. HEART: Regular rate and rhythm. 2/6 systolic murmur. Dressing to sternal wound, wound VAC, 3 RAHEEM drains with serosanguineous drainage. ABDOMEN: Soft. Bowel sounds are present. No masses. No tenderness. EXTREMITIES: 2+ bilat pitting edema. Generalized anasarca. NEUROLOGICAL: Patient resting comfortably in bed, eyes are open but patient is unresponsive. ASSESSMENT AND PLAN 1. Acute diastolic heart failure, (POA) EF 55%, mild AI and mild MR and mild TR, also complicated by severe protein calorie malnutrition, Cardiology consult appreciated. Continue Lasix 40 mg IV daily managed by nephrology. 2. Acute hypoxemic respiratory failure. (POA) Patient has underlying pulmonary hypertension as well, consult with coronary. Patient is intubated and on mechanical ventilation. Pulmonary medicine is managing. 3. Acute kidney injury secondary to ATN secondary to hypotension and cardiorenal syndrome. (POA) Patient is status post dialysis catheter placement, hemodialysis. Patient is followed closely by nephrology. 4. Hyperkalemia secondary to potassium supplementation, losartan and acute kidn ey injury as well as severe acidosis. (POA) Consult with nephrology appreciated. Continue medical management. 5. Metabolic acidosis secondary to acute kidney injury. (POA) 6. Metabolic encephalopathy secondary to acute kidney injury, acute heart failure, acute respiratory failure, metabolic acidosis and hyperkalemia. (POA) improving. 7. Sepsis with septic shock with multiorgan failure with metabolic encephalopathy, acute kidney injury, acute heart failure, acute respiratory failure, MSSA bacteremia. (POA) status post sternal exploration and sternal debridement on August 27. 8. Sepsis with sternal wound dehiscence. (POA) Status post sternal exploration and sternal debridement on 08/27 followed by excision of sternal wound, partial sternotomy and pectoralis flap procedure on 09/03. Infectious disease consult appreciated. Antibiotics have been transitioned to cefepime and daptomycin. 9. Acute blood loss anemia, postop, status post transfusion of 5 units of packed RBCs. Continue to monitor. 10. Hyponatremia. Continue to monitor. 11. CAD, with prior CABG performed on 08/10/2020, two-vessel, involving HOLLAND to LAD, and reverse greater saphenous vein to obtuse marginal coronary artery. Continue aspirin 325 mg daily, Plavix 75 mg daily, Toprol all 75 mg twice a day, 12. Severe protein calorie malnutrition, with anasarca and hypotension. Continue tube feedings. 13. History of pulmonary fibrosis. Continue duo nebs and albuterol 14. Asthma, mild intermittent. Continue ipratropium albuterol nebulizers 15. Hyperlipidemia. Continue statin daily 16. Hypertension. Currently hypotensive 17. GI prophylaxis. Pantoprazole 18. Critical care neuropathy essentially ruled out by and neurology. 19. DVT prophylaxis: SCDs 20. Blood sugar management in a nondiabetic. insulin scale every 6 hours. 21. Acute transaminitis secondary to hypoperfusion. 22. Chronic kidney disease stage II. Prognosis guarded DISCHARGE PLAN TBD. Impression and plan of care have been directed as dictated by the signing physician. Monica Fragoso nurse practitioner acting as scribe for signing physician. Objective - Vital Signs Vital signs: Vital Signs Temp 99.9 F H 09/08/20 04:00 Pulse 102 H 09/08/20 08:25 Resp 32 H 09/08/20 06:30 BP 100/64 09/08/20 06:30 Pulse Ox 98 09/08/20 06:30 Intake & Output 09/07/20 09/08/20 09/08/20 18:59 06:59 18:59 Intake Total 1750 2064 254 Output Total 1930 855 150 Balance -180 1209 104 Weight 88.7 kg 88.7 kg Intake: IV 410 324 Cefepime 2 gm In Sodium 100 100 Chloride 0.9% 100 ml @ 25 mls/hr IVPB Q12HR [facility] Rx #:[id number] DAPTOmycin 500 mg In 50 Sodium Chloride 0.9% 50 ml @ 100 mls/hr IVPB Q24HR [facility] Rx#:[id number] Dextrose 5% in Water 1, 260 200 000 ml @ 20 mls/hr IV . Q24H [facility] Rx#:[id number] Pressure Bag 24 Tube Feeding 540 540 54 Other 800 1200 200 Output: Drainage 80 20 RAHEEM #2 80 20 Urine 1850 835 150 Other: Voiding Method Indwelling Catheter Indwelling Catheter ABP, PAP, CO, CI - Last Documented Arterial Blood Pressure 127/46 - Labs CBC & Chem 7: 09/08/20 05:08 09/08/20 05:08 Labs: Abnormal Lab Results - Last 24 Hours (Table) 09/07/20 09/07/20 09/07/20 Range/Units 11:23 17:13 18:57 RBC (3.80-5.40) m/uL Hgb (11.4-16.0) gm/dL Hct (34.0-46.0) % RDW (11.5-15.5) % ABG pH (7.35-7.45) ABG pCO2 (35-45) mmHg ABG Total CO2 (19-24) mmol/L ABG O2 Saturation (94-97) % Potassium (3.5-5.1) mmol/L Chloride (98-107) mmol/L BUN (7-17) mg/dL Glucose (74-99) mg/dL POC Glucose (mg/dL) 132 H 123 H (75-99) mg/dL Calcium (8.4-10.2) mg/dL AST (14-36) U/L Alkaline Phosphatase (38-126) U/L Total Protein (6.3-8.2) g/dL Albumin (3.5-5.0) g/dL Urine Protein 1+ H (Negative) Urine Blood Moderate H (Negative) Urine RBC 64 H (0-5) /hpf Urine WBC 7 H (0-5) /hpf Urine Mucus Rare H (None) /hpf 09/07/20 09/08/20 09/08/20 Range/Units 23:12 05:08 05:08 RBC 2.50 L (3.80-5.40) m/uL Hgb 7.4 L (11.4-16.0) gm/dL Hct 22.9 L (34.0-46.0) % RDW 17.2 H (11.5-15.5) % ABG pH (7.35-7.45) ABG pCO2 (35-45) mmHg ABG Total CO2 (19-24) mmol/L ABG O2 Saturation (94-97) % Potassium 3.4 L (3.5-5.1) mmol/L Chloride 114 H (98-107) mmol/L BUN 33 H (7-17) mg/dL Glucose 118 H (74-99) mg/dL POC Glucose (mg/dL) 115 H (75-99) mg/dL Calcium 8.2 L (8.4-10.2) mg/dL AST 39 H (14-36) U/L Alkaline Phosphatase 150 H (38-126) U/L Total Protein 5.9 L (6.3-8.2) g/dL Albumin 2.3 L (3.5-5.0) g/dL Urine Protein (Negative) Urine Blood (Negative) Urine RBC (0-5) /hpf Urine WBC (0-5) /hpf Urine Mucus (None) /hpf 09/08/20 09/08/20 Range/Units 05:28 05:46 RBC (3.80-5.40) m/uL Hgb (11.4-16.0) gm/dL Hct (34.0-46.0) % RDW (11.5-15.5) % ABG pH 7.48 H (7.35-7.45) ABG pCO2 34 L (35-45) mmHg ABG Total CO2 27 H (19-24) mmol/L ABG O2 Saturation 99.0 H (94-97) % Potassium (3.5-5.1) mmol/L Chloride (98-107) mmol/L BUN (7-17) mg/dL Glucose (74-99) mg/dL POC Glucose (mg/dL) 122 H (75-99) mg/dL Calcium (8.4-10.2) mg/dL AST (14-36) U/L Alkaline Phosphatase (38-126) U/L Total Protein (6.3-8.2) g/dL Albumin (3.5-5.0) g/dL Urine Protein (Negative) Urine Blood (Negative) Urine RBC (0-5) /hpf Urine WBC (0-5) /hpf Urine Mucus (None) /hpf Microbiology - Last 24 Hours (Table) 09/03/20 18:02 Blood Culture - Preliminary Blood No Growth after 96 hours 09/02/20 18:52 Blood Culture - Preliminary Blood No Growth after 120 hours 09/01/20 14:40 Blood Culture - Final Blood No Growth after 144 hours
[2020-09-08 12:07] LABS: Glucose,Whole Blood 129 mg/dL (75-99)
[2020-09-08] MEDS: ASCORBIC ACID 500 MG TAB PO SCH (14:11)
[2020-09-08] MEDS: FERROUS SULFATE ORAL ELIXIR 300 MG/5 ML CUP PO SCH (14:11)
[2020-09-08] MEDS: DARBEPOETIN ALFA 40 MCG/0.4 ML SYRINGE SQ SCH (14:11)
[2020-09-08] MEDS: DEXTROSE 5% IN WATER 1,000 ML IV SCH (14:12)
--- NOTE | 2020-09-08 15:58 | P.PN ---
Subjective This is a 75-year-old female past medical history significant for hypertension, hyperlipidema, pulmonary fibrosis, asthma, obesity, former smoker with smoking 32 years ago, osteoarthritis, cervical stenosis post anterior cervical decompression, discectomy and fusion, TIA as child at age 11. Over the past 6 months patient was episodes of shortness of breath and lower extremity edema. She underwent a stress test which showed anterior wall ischemia with small reversible defect. a 2-D echocardiogram which showed mild aortic valve insufficiency, mild mitral valve regurgitation, mild tricuspid valve regurgitation and left ventricular function to be normal with an ejection fraction of 55%. Subsequently she underwent an elective heart catheterization on 07/27/2020 which demonstrated a left main stenosis, a 40% stenosis to her mid left anterior descending coronary artery and a 30% stenosis to her right coronary artery. Due to the patient's symptoms and findings on her heart catheterization of left main stenosis a consult was placed to Dr. Sethi from cardiothoracic surgery for further evaluation and treatment recommendations.She was admitted to the hospital from 08/06/20-08/19/20 for hyponatremia and underwent double vessel coronary artery bypass graft on 08/10/2020. She is now readmitted on 08/22/20 with respiratory failure, evidence of pneumonia, and evidence of pneumonia and dehiscense of her sternal wound. transferred to ICU on 08/24. On 08/25, patient had an episode of Afib with RVR intermittently and her dose of lopressor was increaed to 25mg every 8 hours. On 08/26, patient was intubated and placed on mechanical ventilation overnight and did have atrial flutter alternating with sinus rhythm. On 08/27 she underwent debridement. 09/03 patient underwent excision of sternal wound, partial sternotomy with placement of a pectoralis flap. Patient is seen and examined this morning around 0745. She is awake, off sedation, not on any vasopressors. Intermittently following commands, staring and no response. She is intubated FiO2 35%, PEEP 5, TV 400, RR20. Patietn was on CPAP on 09/07/20 for about 8 hours but was unable to tolerate for only short period today. Sodium 145, potassium 3.4, sCr 0.85, WBC 10, Hgb 7.4 Patient's current cardiac medications include: ASA 325 daily, Plavix 75mg daily Lasix IV 40mg daily, metoprolol tartrate 50mg BID PHYSICAL EXAMINATION Arterial Blood pressure 164/66 heart rate 108 afebrile today. GEN: Patient in ICU bed, appears comfortable, anxious HEENT: Patient intubated and on mechanical ventilation CHEST EXAMINATION: Lungs are diminished to auscultation anteriorly . HEART EXAMINATION: Regular rate and rhythm. S1, S2 heard. No murmurs, gallops or rub. ABDOMEN: Soft, Positive bowel sounds. EXTREMITIES: 3+ edema in bilateral hands R >L, 2+ bilateral pitting edema lower extremities. NEUROLOGIC EXAMINATION: Patient is awake, unresponsive, eyes open ASSESSMENT Acute hypoxemica Respiratory failure s/p coronary artery bypass grafting - pulmonary is following patient Acute diastolic heart failure- EF 55%, mild aortic regurgitation, mild mitral regurgitation, mild tricuspid regurgitation Wound dehiscense s/p debridement and excision and placement of pectoralis muscle flap Acute Kidney Injury- renal function now back to baseline- nephrology following patient Hypernatremia - patient currently getting free water flushes and IV lasix that is being managed by Nephrology Coronary artery disease- s/p CABG performed on 08/10/20 Sepsis with septic shock, with MSSA bacteremia with sternal wound dehiscence s/p sternal exploration, sternal debridement on 08/27. s/p Exicion of sternal wound, partial sternotomy, pectoralis flap on 09/03 Acute blood loss anemia- s/p 2 unit on 09/05/20 History of Hypertension- currently hypotensive History of Hyperlipidemia Hypokalemia- patient on IV Lasix- being replaced PLAN -Continue dual-antiplatelet therapy aspirin daily, Plavix daily -Continue beta sisi: Toprol 75mg BID as tolerated. -Statin not on patient's current hospital medication regimen- can continue statin -Will continue to follow patient Nurse Practitioner note has been reviewed, I agree with a documented findings and plan of care. Patient was seen and examined. Objective - Vital Signs Vital signs: Vital Signs Temp 99.9 F H 09/08/20 04:00 Pulse 102 H 09/08/20 08:25 Resp 32 H 09/08/20 06:30 BP 100/64 09/08/20 06:30 Pulse Ox 98 09/08/20 06:30 Intake & Output 09/07/20 09/08/20 09/08/20 18:59 06:59 18:59 Intake Total 1750 2064 254 Output Total 1930 855 150 Balance -180 1209 104 Weight 88.7 kg 88.7 kg Intake: IV 410 324 Cefepime 2 gm In Sodium 100 100 Chloride 0.9% 100 ml @ 25 mls/hr IVPB Q12HR [facility] Rx #:[id number] DAPTOmycin 500 mg In 50 Sodium Chloride 0.9% 50 ml @ 100 mls/hr IVPB Q24HR [facility] Rx#:[id number] Dextrose 5% in Water 1, 260 200 000 ml @ 20 mls/hr IV . Q24H [facility] Rx#:[id number] Pressure Bag 24 Tube Feeding 540 540 54 Other 800 1200 200 Output: Drainage 80 20 RAHEEM #2 80 20 Urine 1850 835 150 Other: Voiding Method Indwelling Catheter Indwelling Catheter ABP, PAP, CO, CI - Last Documented Arterial Blood Pressure 127/46 - Labs CBC & Chem 7: 09/08/20 05:08 09/08/20 05:08 Labs: Abnormal Lab Results - Last 24 Hours (Table) 09/07/20 09/07/20 09/07/20 Range/Units 11:23 17:13 18:57 RBC (3.80-5.40) m/uL Hgb (11.4-16.0) gm/dL Hct (34.0-46.0) % RDW (11.5-15.5) % ABG pH (7.35-7.45) ABG pCO2 (35-45) mmHg ABG Total CO2 (19-24) mmol/L ABG O2 Saturation (94-97) % Potassium (3.5-5.1) mmol/L Chloride (98-107) mmol/L BUN (7-17) mg/dL Glucose (74-99) mg/dL POC Glucose (mg/dL) 132 H 123 H (75-99) mg/dL Calcium (8.4-10.2) mg/dL AST (14-36) U/L Alkaline Phosphatase (38-126) U/L Total Protein (6.3-8.2) g/dL Albumin (3.5-5.0) g/dL Urine Protein 1+ H (Negative) Urine Blood Moderate H (Negative) Urine RBC 64 H (0-5) /hpf Urine WBC 7 H (0-5) /hpf Urine Mucus Rare H (None) /hpf 09/07/20 09/08/20 09/08/20 Range/Units 23:12 05:08 05:08 RBC 2.50 L (3.80-5.40) m/uL Hgb 7.4 L (11.4-16.0) gm/dL Hct 22.9 L (34.0-46.0) % RDW 17.2 H (11.5-15.5) % ABG pH (7.35-7.45) ABG pCO2 (35-45) mmHg ABG Total CO2 (19-24) mmol/L ABG O2 Saturation (94-97) % Potassium 3.4 L (3.5-5.1) mmol/L Chloride 114 H (98-107) mmol/L BUN 33 H (7-17) mg/dL Glucose 118 H (74-99) mg/dL POC Glucose (mg/dL) 115 H (75-99) mg/dL Calcium 8.2 L (8.4-10.2) mg/dL AST 39 H (14-36) U/L Alkaline Phosphatase 150 H (38-126) U/L Total Protein 5.9 L (6.3-8.2) g/dL Albumin 2.3 L (3.5-5.0) g/dL Urine Protein (Negative) Urine Blood (Negative) Urine RBC (0-5) /hpf Urine WBC (0-5) /hpf Urine Mucus (None) /hpf 09/08/20 09/08/20 Range/Units 05:28 05:46 RBC (3.80-5.40) m/uL Hgb (11.4-16.0) gm/dL Hct (34.0-46.0) % RDW (11.5-15.5) % ABG pH 7.48 H (7.35-7.45) ABG pCO2 34 L (35-45) mmHg ABG Total CO2 27 H (19-24) mmol/L ABG O2 Saturation 99.0 H (94-97) % Potassium (3.5-5.1) mmol/L Chloride (98-107) mmol/L BUN (7-17) mg/dL Glucose (74-99) mg/dL POC Glucose (mg/dL) 122 H (75-99) mg/dL Calcium (8.4-10.2) mg/dL AST (14-36) U/L Alkaline Phosphatase (38-126) U/L Total Protein (6.3-8.2) g/dL Albumin (3.5-5.0) g/dL Urine Protein (Negative) Urine Blood (Negative) Urine RBC (0-5) /hpf Urine WBC (0-5) /hpf Urine Mucus (None) /hpf Microbiology - Last 24 Hours (Table) 09/03/20 18:02 Blood Culture - Preliminary Blood No Growth after 96 hours 09/02/20 18:52 Blood Culture - Preliminary Blood No Growth after 120 hours 09/01/20 14:40 Blood Culture - Final Blood No Growth after 144 hours
[2020-09-08] MEDS: DEXMEDETOMIDINE/0.9% NACL(PMX) 400 MCG in EMPTY BAG 1 BAG IV SCH (16:30)
[2020-09-08 17:16] LABS: Glucose,Whole Blood 116 mg/dL (75-99)
[2020-09-08] MEDS: MELATONIN 3 MG TABLET PO SCH (20:09)
--- NOTE | 2020-09-08 23:14 | PN ---
PROGRESS NOTE DATE OF SERVICE: 09/08/2020 REASON FOR FOLLOWUP: 1. 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 2. Left groin dialysis catheter site infection. INTERVAL HISTORY: The patient is currently afebrile. The patient is hemodynamically stable, not on any pressor support. FiO2 is currently stable at 35%. No significant purulent secretions through ET or any worsening diarrhea reported by the nursing staff. PHYSICAL EXAMINATION: Blood pressure 135/53, pulse of 93, temperature 99.3. She is 98% on 35% FiO2. General description is an elderly female lying in bed in no distress. RESPIRATORY SYSTEM: Unlabored breathing with decreased breath sounds at the base. No wheeze. HEART: S1, S2. Regular rate and rhythm. ABDOMEN: Soft. No tenderness. LABS: Hemoglobin 7.4, white count 10.0, BUN of 33, creatinine 0.85. DIAGNOSTIC IMPRESSION AND PLAN: 1. 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 Follow-up blood culture negative. 2. Patient did have a left groin dialysis site infection in this patient whose fever and white count responded to cefepime and daptomycin; that will be continued. Clinical course will be monitored closely. Continue with supportive care. MMODL / IJN: [id number] /
[2020-09-08 23:44] LABS: Glucose,Whole Blood 149 mg/dL (75-99)
[2020-09-09] MEDS: IPRATROPIUM-ALBUTEROL 3 ML NEB INHALATION SCH ×5 (03:30→19:37)
[2020-09-09] MEDS: DEXMEDETOMIDINE/0.9% NACL(PMX) 400 MCG in EMPTY BAG 1 BAG IV SCH (04:01)
[2020-09-09 04:29] LABS: Albumin 2.2 g/dL (3.5-5.0); Calcium 8.1 mg/dL (8.4-10.2); Magnesium 1.7 mg/dL (1.6-2.3); Potassium 3.4 mmol/L (3.5-5.1); Total Protein 5.8 g/dL (6.3-8.2)
[2020-09-09 04:32] LABS: Anisocytosis Slight; HCT 23.1 % (34.0-46.0); HGB 7.3 gm/dL (11.4-16.0); Hypochromasia Slight; MCH 28.7 pg (25.0-35.0); MCHC 31.8 g/dL (31.0-37.0); MCV 90.4 fL (80.0-100.0); Platelet Count 292 k/uL (150-450); Poikilocytosis Slight; RBC 2.56 m/uL (3.80-5.40); RDW 17.3 % (11.5-15.5)
[2020-09-09] MEDS: POTASSIUM BICARBONATE/CIT AC 20 MEQ TABLET.EFF NG-TUBE SCH ×2 (05:06→06:23)
[2020-09-09] MEDS: MAGNESIUM SULFATE-D5W PMX 1 GM in DEXTROSE/WATER 1 100ML.BAG IVPB SCH ×2 (05:06→06:22)
[2020-09-09 05:07] LABS: Glucose,Whole Blood 135 mg/dL (75-99)
[2020-09-09 05:07] LABS: Eosinophils # (M) 0.18 k/uL (0-0.7); Lymphocytes # (M) 2.07 k/uL (1.0-4.8); Monocytes # (M) 0.36 k/uL (0-1.0); Neutrophils # (M) 6.39 k/uL (1.3-7.7); Neutrophils % (M) 71 %; Nucleated Red Blood Cells 0 /100 WBC (0-0); Total Cells Counted 100
[2020-09-09 05:08] LABS: Anisocytosis (M) Present; Polychromasia Present
[2020-09-09 05:09] LABS: ABG Base Excess 0.6 mmol/L; ABG HCO3 24 mmol/L (21-25); ABG Oxygen Saturation 97.7 % (94-97); ABG PCO2 30 mmHg (35-45); ABG PO2 78 mmHg (83-108); ABG TCO2 25 mmol/L (19-24)
[2020-09-09] MEDS: INSULIN ASPART (NovoLOG) 100 UNIT/ML VIAL SQ SCH ×4 (05:16→23:33)
[2020-09-09 05:19] LABS: Allen Test Performed? no
--- NOTE | 2020-09-09 07:31 | P.PN ---
Subjective Progress Note Date: 09/09/20 wound infection. Reevaluated today on 08/28/2020, patient remains in the ICU, intubated and mechanically ventilated. Her assist-control rate is 20, volume is 450 FiO2 is 50% PEEP was at 5 and I increased it up to 8. ABG showed a pO2 of 57 pCO2 of 30 pH of 7.53. O2 saturation on the monitor is 96%. Patient remains on norepinephrine at 0.07 mcg/kg/m, she is also on propofol at 65 mcg/kg/m. Patient is on enteral feeding. Remains on cefepime and daptomycin for her positive blood cultures/MSSA. Patient is also on Lasix at 80 mg IV push every 24 hours. Her urine output has been good. And her chest x-ray continues to show mild congestive heart failure changes. Patient has leukocytosis with WBC count 24.3, electrolytes are normal BUN is 46 creatinine 0.90. Liver enzymes are trending down slowly Patient was reevaluated today on 08/29/2020, remains intubated and mechanically ventilated. She is on assist control rate of 20 tidal volume is 450 FiO2 is 50% and PEEP of 8. ABG showed a pO2 of 56 pCO2 of 35 pH of 7.50 however her O2 saturation on the monitor is 99%. Patient remains on norepinephrine at 0.05 mcg/kg/m, he is on propofol at 70 mcg/kg/m, she is on Lasix 80 mg IV push daily, with good urine output. IV fluid mostly at KVO. Antibiotics garzon she is on cefazolin and clindamycin. Patient had MSSA in the blood and in the sternal wound. Chest x-ray continues to show evidence of pulmonary edema, and now she seems to be developing some consolidation in the right upper lobe medially. Her sternum remains open, decision regarding sternal closure will be made in the next 24-48 hours by thoracic surgery. Patient continues to have leukocytosis with WBC count of 24.2 hemoglobin is 10.6, basic metabolic profile is normal renal profile is normal not requiring any further dialysis, and she has good urine output responding well to diuretics. Liver enzymes seem to be trending down 08/30/2020 the patient remains intubated on a mechanical ventilator. This morning, she has an assist-control at the rate of 20 with tidal volume of 450 and the flow of 70 with a FiO2 of 50% with a PEEP of 8. The morning blood gases from today showed a pH of 7.55, and the pCO2 is a 35 with a pO2 of 72. Necessity ventilator changes were done. Peak airway pressure was 37. Static pressure was 32. Chest x-ray still showing diffuse bilateral pulmonary infiltrates consistent with pneumonia although possibility of an acute lung injury/ARDS cannot be completely excluded. ET tube is in a good location. The patient this morning is sedated with propofol which is running at 50 mcg/kg per minute. Sedation holiday was given this morning to evaluate her mental status. I was told yesterday that the patient did have some diminished level of consciousness once she was off the sedation. Nevertheless she was placed on sedation again to maintain synchrony with the mechanical ventilator. She is septic with staff aureus, MSSA has been cultured in her sputum, and her blood and in her sternal wound. Her current antibiotic coverage including a combination of nafcillin and clindamycin. She is afebrile. Sternal wound is being monitored by the cardiothoracic surgery team. Daily dressing changes are being done. There is still output which is purulent according to the nursing staff. Pressors and the patient is currently on norepinephrine running at 0.04 mcg/kg per minute. Renal function is improving and the creatinine is down to 0.78. The white cell count is at 19.8 with hemoglobin of 10.2 and a platelet count of 90. Liver function tests continue to improve with an AST of 68, ALT of 77 and the last blood culture was taken from 08/29/2020 was again positive for gram-positive bacteria most likely MSSA. The patient has orogastric tube in place and she is receiving vital high protein at a rate of 23 mL an hour. This is at goal for now. No abdominal distention. No increased residuals for now. She is afebrile. Progress note dated 08/31/2020. This is a 75-year-old female was admitted to the hospital on August 22, she came in for a sternal wound infection, and worsening respiratory status with heart failure. Unfortunately, she developed severe hypoxemic respiratory failure and required intubation on August 25. She was discovered to have a sternal wound infection and went to the operating room for debridement, on August 27. Microbiology is positive for methicillin sensitive staph aureus, and she remains on nafcillin and clindamycin. This patient initially had a two- vessel bypass grafting on 08/10/2020, and was discharged on 08/19/2020. Currently, the patient remains on the volume assist control mode, rate is 20, tidal volume is 400, FiO2 40%, and PEEP of 8. Blood gases show a PaO2 of 65, a PaCO2 39, and a pH is 7.58. His blood gases consistent with a relative hypoxemia, and a severe metabolic alkalosis. Currently, the norepinephrine has been weaned off. She remains on saline at 25 mL an hour, and she is currently not on any sedation. She's getting vital high protein at 23 mL an hour with a goal of 28 mL an hour. Today, regarding do a spontaneous breathing trial, on pressor support of 15, CPAP of 5. If the patient shows any signs of deterioration, such as tachycardia, tachypnea, hypertension, diaphoresis, higher respiratory rates, and/or lower tidal volumes, the patient will be switched back to the volume assist control mode with the. Progress note dated 09/01/2020. 75-year-old female admitted back on August 22. She came into the hospital with a sternal wound infection. In addition, she had worsening respiratory status, with heart failure. She developed reinaldo hypoxemic respiratory failure and required intubation on August 25. At that time, she was discovered to have a sternal wound infection, secondary to staph aureus, and went to the operating room for debridement. This was on August 27. Microbiology is positive for methicillin sensitive staph aureus, and she remains on nafcillin and clindamycin. The patient had a two-vessel bypass grafting done on August 10, and was discharged on August 19. Currently, she remains on the volume assist control modality, the rate of 20, tidal volume 400, FiO2 50%, and PEEP of 5. This morning's blood gases, show a PaO2 of 58, a PaCO2 of 40, and a pH is 7.61. These arterial blood gases are consistent with hypoxemia, and a severe metabolic alkalosis. The FiO2 was increased from 40-50%. Currently, she is on propofol at 20 mcg/kg/m, saline at 15 mL an hour, and vital high protein at 54 mL an hour, which is goal. Today, we are going to ensure that her potassium exceeds 4.5, DC her Lasix, and add Diamox 500 mg a day. We also increased the FiO2 earlier this morning to 50%. She will not wean with his profound metabolic alkalosis, and likely, we will hypoventilate and retain carbon dioxide, to balance out her pH. Hence, it's imperative that we treat the alkalosis aggressively. Progress note dated 09/04/2020. 75-year-old female, admitted back on August 22. She came into the hospital with a sternal wound infection. She had worsening respiratory status with heart failure, and developed reinaldo hypoxemic respiratory failure and required intubat ion on 08/25. At that time, she was discovered to have a sternal wound infection secondary to staph aureus, and went to the operating room on 08/27, for debridement. Microbiology was positive for methicillin sensitive staph aureus. The patient had a two-vessel bypass grafting done on 08/10/2020, and was discharged on 08/19. She remains on the mechanical ventilator. She is on the volume assist control mode, rate of 20, tidal volume 400, FiO2 50%, and a PEEP of 5. She's currently on norepinephrine at 6.1 g her minute, D5W with half-normal saline and 20 mEq of potassium at 75 mL an hour, and tube feeds are currently on hold. This morning, we put a right femoral triple-lumen catheter in, as well as a right brachial arterial line. She received both fentanyl and Nimbex for the procedure. She is also postop day #1, status post excision of sternal wound, right pectoralis major myocutaneous flap, and left pectoralis major myocutaneous flap procedure. The patient's currently reasonably stable in the intensive care unit. No plans on any weaning her extubation at this time. Current laboratory data includes a white count of 17.5, hemoglobin 7.2, hematocrit 23.4, and platelet count 328,000. Morning arterial blood gas shows a PaO2 of 98, a PaCO2 of 34, and pH is 7.48. This blood gases consistent with normoxemia, and a mild respiratory and metabolic alkalosis. Sodium is 149, po tassium is 3.8, chloride 115, CO2 26, anion gap 8, BUN 59, creatinine 1.37. Chest x-ray shows bilateral infiltrates, which could relate to either pneumonia or pulmonary edema. X-ray is unchanged. Progress note dated 09/05/2020. 75-year-old female, admitted back on 08/22. Patient came into the hospital with a sternal wound infection, and developed worsening respiratory status, with heart failure, and reinaldo hypoxemic respiratory failure, requiring intubation on 08/25. At that time, she was discovered to have a sternal wound infection, secondary to staph aureus, and went to the operating room on 08/27, for debridement. Microbiology was positive for methicillin sensitive staph aureus. The patient had a two-vessel bypass grafting done on 08/10/2020, and was discharged home on 08/19. Currently, the patient remains on the ventilator. She is on the volume assist control mode, rate of 20, tidal volume 400, FiO2 40%, PEEP of 5. Arterial blood gases show a PaO2 of 150, PaCO2 35, pH is 7.49. The blood gases are consistent with hyperoxia, and a mild respiratory alkalosis. The patient will have a spontaneous breathing trial today, with a PSV of 80, and CPAP of 5. She's currently getting vital high protein at 54 mL an hour which is goal, and, D5.45, with 20 of potassium, at 20 mL an hour. She is on a small dose of norepinephrine, which is 0.04 g kilogram per minute, or 3.6 mcg /m. The patient is postop day #2, status post excision of sternal wound, with a right pectoralis major myocutaneous flap, and a left pectoralis major myocutaneous flap procedure. White blood count is 13.4, hemoglobin is only 5.4, hematocrit 17.2, and platelet count 313,000. She is currently getting blood. Sodium is 152, potassium 3.6, chlorides 120, carbon dioxide 26, anion gap 6, BUN 45, and creatinine 1.2. The IVs changed from D5 0.45, to just plain dextrose. Progress note dated 09/06/2020. 75-year-old female, admitted back on 08/22/2020. The patient initially came into the hospital with a sternal wound infection, with developing and worsening respiratory failure CHF, and profound hypoxemia. The patient required intubation and mechanical ventilation on 08/25/2020. At that time, he was discovered to have a sternal wound infection secondary to Staphylococcus aureus, and went to the operating room on 08/27/2020 for debridement. Microbiology was positive for methicillin sensitive staph aureus. The patient initially had a two-vessel bypass grafting, on 08/10/2020, and was discharged home 9 days later, on 08/19/2020. The patient remains on the ventilator, on the volume assist control mode, rate of 20, tidal volume 400, FiO2 40%, to be reduced down to 35%, and a PEEP of 5. Arterial blood gases show a PaO2 of 114, PaCO2 of 35, and a pH of 7.45. These blood gases consistent with a mild respiratory alkalosis, and mild hyperoxia. The patient is getting dextrose, at 20 mL an hour, saline at 10 mL an hour, of vital high protein at 54 mL an hour, which is goal, and she will be given a spontaneous breathing trial today on pressure support of 10, and CPAP of 5. Yesterday, on PSV 8, CPAP 5, she only lasted 5 minutes with her trial. In my opinion, unless the patient starts making significant progress, she likely will be a candidate for a tracheostomy and PEG tube procedure. Today's labs show a white count of 10.6, hemoglobin 8, hematocrit 25, and a platelet count of 276,000. Sodium is 150, potassium 3.6, chlorides 119, carbon dioxide 24, anion gap 7, BUN 42, and creatinine 1.03. Rest of the labs are reviewed. Chest x- rays shows cardiomegaly, with increased alveolar and interstitial edema and/or infiltrate laterally. Chest x-ray is unchanged. on 09/07/2020 the patient is being seen for a follow-up. The patient is off sedation and she is wide awake and following commands and answering questions appropriately while her being intubated on a mechanical ventilator. She is still profoundly weak. She can wiggle her toes and fingers. She is unable to raise her arms against gravity.. As such the patient is profoundly weak. She does have normal reflexes in all 4 extremities as such I think this is a myopathy rather than a underlying neuropathy processes underlying her weakness. There was a concern of epidural abscess/discitis. CAT scan of the cervical spine showed no evidence of any abnormalities and the patient was seen by neurology. EEG done earlier showed background slowing and moderate to severe degree of slowing suggestive of diffuse cerebral dysfunction/metabolic encephalopathy. No seizure activity was noted. The hardware and the cervical spine has been stable. No loosening.She was on a mechanical ventilator. Earlier this morning she was assist control mode at a tidal volume of 400 with a FiO2 of 35% with a PEEP of 5. I switched her to a pressure support of 8 and a PEEP of 5 with an FiO2 of 35%. Her med ventilation still elevated at 13.5 L per minute. She is able to generate a tidal volume of 3 80 mL and the respiratory rate is around 33. Despite her tachypnea, she states that she is breathing comfortably. Surgical wound site over the sternum is dry clean and intact. The patient has 3 separate RAHEEM drains and output is serosanguineous at this point in time. She has a fecal management system in place with output being minimal. The patient is receiving enteral feeding via a G-tube and she is on vital high protein at the rate of 54 mL an hour and the patient is also receiving free water supplements 400 mL every 4 hours. Her sodium level is down to 148. She is also on D5 water running at 20 mL an hour. She is afebrile. Antibiotic coverage has included a combination of cefepime and daptomycin. No fever. Most recent blood cultures From 09/01/2020 and 09/02/2020 and 09/03/2020 were all negative and a sputum culture from 09/04/2020 was also negative. The chest x- ray showing some bilateral pulmonary infiltrates.. The patient is awake. She has a adequate cough at this point in time. On today's evaluation of 09/08/2020, the patient is being seen in follow-up. The patient remains off sedation and she is wide awake. She is still weak and motor weakness is been an ongoing issue. She is moving her legs and she is able to raise her feet against gravity. She also is able to get as with her hands and she is able to move her hands rather than yesterday. Nevertheless, she is unable to raise her hands of the bed and she remains in significant amount of motor weakness. Yesterday, the patient was able to tolerate a total of 8 hours a pressure support mode of ventilation with a pressure support of 8 and a PEEP of 5. This morning, she is back on assist control mode at the rate of 20 with tidal volume of 400 and FiO2 of 35% with a PEEP of 5. The blood gases from today showed a pH of 7.48 with a pCO2 of 34 and pO2 of 98. Chest x-ray shows stable bilateral pulmonary infiltrates which is essentially unchanged compared to yesterday, probably slightly better. She does have a right sided PICC line and the findings of chest x-rays are essentially stable with stable diffuse patchy bilateral pulmonary infiltrates. ET tube remains in a good location. The patient has no significant orotracheal secretions. The white cell count at 10.0. No fever. Repeat blood cultures of been negative. The sodium level is improving and the sodium level is down to 145 and the patient is getting free water flushes 400 cc every 4 hours and she is also getting IV fluid in the form of D5W at the rate of 20 mL an hour. The patient has 3 separate RAHEEM drains and output remains serosanguineous. Output is minimal at this point in time. Her antibiotic coverage remains a combination of cefepime and daptomycin. As stated, the repeat blood cultures have been essentially negative and the patient is afebrile for now. The active issue for now is the profound weakness and the weaning process. The surgical wound site is covered with a wound VAC yet she has a fecal management system with minimal amount of output for now. Repeat 2020 patient is being seen for a follow-up. Yesterday, the patient was given a spelled his breathing trial with pressure support of 12 and a PEEP of 5. She'll assess for almost an hour and following that she became more restless and agitated and accordingly the patient was started on Precedex which is currently running at 0.3 mcg/kg/h. Subsequently she was switched back on assist control mode with tidal volume of 400 FiO2 of 35% with a PEEP of 5. She ena nued to have a higher minute ventilation and a high respiratory rate. Blood gases from this morning showed a pH of 7.50 with a pCO2 of 30 and pO2 of 78 and this is consistent with primary respiratory alkalosis. Chest x-ray findings are essentially stable. She has 3 different RAHEEM drains which are draining serosanguineous material. She also has a superficial wound VAC with minimal amount of output. No fever. No chills. White cell count is at 9. Hemoglobin stable at 7.4. Renal function stable with a creatinine of 0.8. Cardiac rhythm is sinus for now. Fluid balance +128 mL over the past 24 hours. She is afebrile. She remains on a combination of cefepime and daptomycin. Neurologically, she is awake, she is raising her legs against gravity. Motor function the arms is probably stable, if anything she is able to grasp her grasping ability is improving. She does have a weak cough. She is awake and alert and shortness of breath and she follows some simple commands although her responses not consistent. She is also receiving enteral feeding for nutritional support and she is currently on vital high protein at the rate of 50 mL an hour. Objective - Vital Signs Vital signs: Vital Signs Temp 99.2 F 09/09/20 04:00 Pulse 92 09/09/20 07:00 Resp 38 H 09/09/20 07:00 BP 115/64 09/09/20 06:00 Pulse Ox 97 09/09/20 07:00 Intake & Output 09/08/20 09/09/20 09/09/20 18:59 06:59 18:59 Intake Total 9248.911 7262.992 77 Output Total 2315 505 150 Balance -0018.281 4273.992 -73 Weight 89 kg Intake: IV 310 213 23 Cefepime 2 gm In Sodium 100 Chloride 0.9% 100 ml @ 25 mls/hr IVPB Q12HR [facility] Rx #:[id number] DAPTOmycin 500 mg In 50 Sodium Chloride 0.9% 50 ml @ 100 mls/hr IVPB Q24HR [facility] Rx#:[id number] Dextrose 5% in Water 1, 160 180 20 000 ml @ 20 mls/hr IV . Q24H [facility] Rx#:[id number] Pressure Bag 33 3 Intake, IV Titration 17.297 73.992 Amount Dexmedetomidine/0.9% NaCl 17.297 73.992 (Pmx) 400 mcg In Empty Bag 1 bag @ Titrate IV . Q0M [facility] Rx#:[id number] Tube Feeding 286 648 54 Other 600 800 Output: Drainage 90 30 RAHEEM #1. 10 RAHEEM #2 70 30 RAHEEM #3 10 Urine 2175 475 50 Stool 50 100 Other: Voiding Method Indwelling Catheter Indwelling Catheter ABP, PAP, CO, CI - Last Documented Arterial Blood Pressure 114/45 - Exam No acute distress, currently off sedation, responds by nodding her head. The patient appears much more stable today. HEENT examination is grossly unremarkable. Mucous membranes are moist. There is an orally placed endotracheal tube, and an orally placed OG tube. Neck supple. Full range of motion. No adenopathy thyromegaly or neck vein distention. Cardiovascular examination reveals regular rhythm rate. S1-S2 normal. No S3 or S4. A soft systolic murmur is noted, grade 2/6. Lungs reveal scattered rhonchi and crackles. Breath sounds equal bilaterally. No wheezes are appreciated. Breath sounds are diminished throughout. Exam is unchanged.. The patient has a wound VAC over the sternum and the patient also has several RAHEEM drains within the chest with serosanguineous drainage at this point in time. Abdomen soft, bowel sounds are heard. No masses or tenderness. Extremities are intact. No cyanosis or clubbing. Mild edema is noted throughout. The patient does have a right brachial arterial line, the patient has a PICC line in the right upper extremity and she also has a femoral line in her right groin. Skin reveals a dressing over the sternal wound infection.. The RAHEEM drains are all in place and output of serosanguineous at this point in time. Neurologic examination shows improved responsiveness. The patient does not her head yes or no when asked certain questions. She does have profound motor weakness in all 4 extremities and the patient has adequate reflexes in both extremities. No hyperreflexia. No hyperreflexia. The patient is awake off sedation she is following some simple commands. She opens her eyes spontaneously. She responds to simple commands. - Labs CBC & Chem 7: 09/09/20 04:00 09/09/20 04:00 Labs: Abnormal Lab Results - Last 24 Hours (Table) 09/08/20 09/08/20 09/08/20 Range/Units 12:06 17:15 23:42 RBC (3.80-5.40) m/uL Hgb (11.4-16.0) gm/dL Hct (34.0-46.0) % RDW (11.5-15.5) % ABG pH (7.35-7.45) ABG pCO2 (35-45) mmHg ABG pO2 (83-108) mmHg ABG Total CO2 (19-24) mmol/L ABG O2 Saturation (94-97) % Potassium (3.5-5.1) mmol/L Chloride (98-107) mmol/L BUN (7-17) mg/dL Glucose (74-99) mg/dL POC Glucose (mg/dL) 129 H 116 H 149 H (75-99) mg/dL Calcium (8.4-10.2) mg/dL Alkaline Phosphatase (38-126) U/L Total Protein (6.3-8.2) g/dL Albumin (3.5-5.0) g/dL 09/09/20 09/09/20 09/09/20 Range/Units 04:00 04:00 05:05 RBC 2.56 L (3.80-5.40) m/uL Hgb 7.3 L (11.4-16.0) gm/dL Hct 23.1 L (34.0-46.0) % RDW 17.3 H (11.5-15.5) % ABG pH (7.35-7.45) ABG pCO2 (35-45) mmHg ABG pO2 (83-108) mmHg ABG Total CO2 (19-24) mmol/L ABG O2 Saturation (94-97) % Potassium 3.4 L (3.5-5.1) mmol/L Chloride 110 H (98-107) mmol/L BUN 35 H (7-17) mg/dL Glucose 120 H (74-99) mg/dL POC Glucose (mg/dL) 135 H (75-99) mg/dL Calcium 8.1 L (8.4-10.2) mg/dL Alkaline Phosphatase 161 H (38-126) U/L Total Protein 5.8 L (6.3-8.2) g/dL Albumin 2.2 L (3.5-5.0) g/dL 09/09/20 Range/Units 05:07 RBC (3.80-5.40) m/uL Hgb (11.4-16.0) gm/dL Hct (34.0-46.0) % RDW (11.5-15.5) % ABG pH 7.50 H (7.35-7.45) ABG pCO2 30 L (35-45) mmHg ABG pO2 78 L (83-108) mmHg ABG Total CO2 25 H (19-24) mmol/L ABG O2 Saturation 97.7 H (94-97) % Potassium (3.5-5.1) mmol/L Chloride (98-107) mmol/L BUN (7-17) mg/dL Glucose (74-99) mg/dL POC Glucose (mg/dL) (75-99) mg/dL Calcium (8.4-10.2) mg/dL Alkaline Phosphatase (38-126) U/L Total Protein (6.3-8.2) g/dL Albumin (3.5-5.0) g/dL Microbiology - Last 24 Hours (Table) 09/08/20 Unknown Catheter Tip Culture - Preliminary Catheter Tip 09/03/20 18:02 Blood Culture - Preliminary Blood No Growth after 120 hours 09/02/20 18:52 Blood Culture - Final Blood No Growth after 144 hours 09/07/20 09:27 Blood Culture - Preliminary Blood No Growth after 24 hours Assessment and Plan Plan: 1 Acute hypoxemic and hypercapnic respiratory failure, secondary to incisional wound infection, with methicillin sensitive staph aureus, as well as pneumonia, and bilateral pleural effusions. The follow-up cultures as of 09/02/2020 were all negative and the patient remains on a combination of cefepime and daptomycin for now. Chest x-ray findings are stable with bilateral pulmonary infiltrates and interstitial infiltrates and small effusions. His chest x-ray from today is essentially stable. The patient was able to tolerate a pressure support of 8-12 and a PEEP of 5 yesterday for a total of 8 hours. Nevertheless she continued to have a high minute ventilation and no extubation was done as the patient remains high minute ventilation and she was quite weak and motor weakness was obvious an ongoing issue. Based on that, the patient was placed back on assist control and the same trial will be done today after being checked for her weaning parameters. 2 Postop day #5, status post excision of sternal wound, right pectoralis major myocutaneous flap, and left pectoralis major myocutaneous flap. Output is serosanguineous 3 Status post readmission on August 22, and intubation for respiratory failure on 08/25/2020 4 Sepsis, secondary to sternal wound infection, caused by methicillin sensitive staph aureus, with bacteremia. Repeat cultures are all negative and the patient remains on adequate antibiotic coverage for now. 5 Septic shock, secondary to sternal wound infection. The patient is currently on no pressors 6 Acute kidney injury, requiring a brief period of hemodialysis. Creatinine today is within normal limits 7 Acute metabolic acidosis, secondary to acute kidney injury. 8 Acute diastolic CHF with bilateral pleural effusions. 9 History of hypertension. 10 History of cervical stenosis. 11 Primary history of tobacco use. 12 Mild pulmonary fibrosis/interstitial lung disease. 13 Status post sternal exploration with sternal debridement, August 27. 14 Recent prior history of two-vessel bypass grafting, on August 10, with d ischarge on August 19. 15 Hypernatremia, recovered and the patient's sodium level has normalized. Plan: Continue gentle sedation with Precedex We'll give the patient another spontaneous breathing trial a pressure support of 12 and a PEEP of 5. The ongoing concern is a high minute ventilation and the rapid respiratory rate along with some respiratory alkalosis. This could be related to anxiety, agitation, pain or even other concerns such as pulmonary vessel congestion/interstitial edema. As such, I will continue with a trial and suggested increasing the diuretics to 40 mg every 12 hours. Monitor the sodium level in the hypernatremia is improved Continue enteral feeding for nutritional support continue cefepime and daptomycin Surgical follow-up on the wound and the RAHEEM drains I don't think the patient is ready for extubation . She is doing progress. She is stillweak. The minute ventilation remains high. Continue daily trials once he has breathing Monitor the output through the wound VAC which is minimal at this point We'll continue following this patient with aggressive the consultants. Critical care evaluation that was done and more bertha 30 minutes Time with Patient: Greater than 30
--- NOTE | 2020-09-09 07:56 | P.PN ---
Subjective HPI: This is a 75-year-old female past medical history significant for hypertension, hyperlipidema, pulmonary fibrosis, asthma, obesity, former smoker with smoking 32 years ago, osteoarthritis, cervical stenosis post anterior cervical decompression, discectomy and fusion, TIA as child at age 11. Over the past 6 months patient was episodes of shortness of breath and lower extremity edema. She underwent a stress test which showed anterior wall ischemia with small reversible defect. a 2-D echocardiogram which showed mild aortic valve insufficiency, mild mitral valve regurgitation, mild tricuspid valve regurgitation and left ventricular function to be normal with an ejection fraction of 55%. Subsequently she underwent an elective heart catheterization on 07/27/2020 which demonstrated a left main stenosis, a 40% stenosis to her mid left anterior descending coronary artery and a 30% stenosis to her right coronary artery. Due to the patient's symptoms and findings on her heart catheterization of left main stenosis a consult was placed to Dr. Sethi from cardiothoracic surgery for further evaluation and treatment recommendations.She was admitted to the hospital from 08/06/20-08/19/20 for hyponatremia and underwent double vessel coronary artery bypass graft on 08/10/2020. She is now readmitted on 08/22/20 with respiratory failure, evidence of pneumonia, and evidence of pneumonia and dehiscense of her sternal wound. tr ansferred to ICU on 08/24. On 08/25, patient had an episode of Afib with RVR intermittently and her dose of lopressor was increaed to 25mg every 8 hours. On 08/26, patient was intubated and placed on mechanical ventilation overnight and did have atrial flutter alternating with sinus rhythm. On 08/27 she underwent debridement. 09/03 patient underwent excision of sternal wound, partial sternotomy with placement of a pectoralis flap. 09/09/2020 Patient seen and examined. Patient remains on ventilator with a FiO2 40%, PEEP of 5 with a spontaneous breathing trial. Patient is still tachypnic and very weak with inability to move her upper extremities and neck much. Her sodium has improved to 141 today. She has good urine output with the Lasix however then urine output tapers off. She is up approximately 100 mL or last 24 hours. PHYSICAL EXAMINATION GEN: Patient in ICU bed, appears comfortable, anxious, on vent HEENT: Patient intubated and on mechanical ventilation CHEST EXAMINATION: Lungs are diminished to auscultation anteriorly . HEART EXAMINATION: Regular rate and rhythm. S1, S2 heard. No murmurs, gallops or rub. ABDOMEN: Soft, Positive bowel sounds. EXTREMITIES: 3+ edema in bilateral hands R >L, 2+ bilateral pitting edema lower extremities. NEUROLOGIC EXAMINATION: Patient is awake, unresponsive, eyes open ASSESSMENT Acute hypoxemica Respiratory failure s/p coronary artery bypass grafting Acute on chronic diastolic heart failure- EF 55%, mild aortic regurgitation, mild mitral regurgitation, mild tricuspid regurgitation Wound dehiscense s/p debridement and excision and placement of pectoralis muscle flap Acute Kidney Injury- renal function now back to baseline- nephrology following patient Hypernatremia - improved Coronary artery disease- s/p CABG performed on 08/10/20 Sepsis with septic shock, with MSSA bacteremia with sternal wound dehiscence s/p sternal exploration, sternal debridement on 08/27. s/p Exicion of sternal wound, partial sternotomy, pectoralis flap on 09/03 Acute blood loss anemia- s/p 2 unit on 09/05/20 History of Hypertension- currently hypotensive History of Hyperlipidemia Hypokalemia- patient on IV Lasix- being replaced PLAN -Continue dual-antiplatelet therapy aspirin daily, Plavix daily -Continue beta sisi: Toprol 75mg BID as tolerated. -May consider increased Lasix in trial to wean vent however patient also was hypernatremic and PCM. Continue supportive care. Objective - Vital Signs Vital signs: Vital Signs Temp 99.2 F 09/09/20 04:00 Pulse 92 09/09/20 07:00 Resp 38 H 09/09/20 07:00 BP 115/64 09/09/20 06:00 Pulse Ox 97 09/09/20 07:00 Intake & Output 09/08/20 09/09/20 09/09/20 18:59 06:59 18:59 Intake Total 1640.817 3023.992 77 Output Total 2315 505 150 Balance -1025.891 4717.992 -73 Weight 89 kg Intake: IV 310 213 23 Cefepime 2 gm In Sodium 100 Chloride 0.9% 100 ml @ 25 mls/hr IVPB Q12HR [facility] Rx #:[id number] DAPTOmycin 500 mg In 50 Sodium Chloride 0.9% 50 ml @ 100 mls/hr IVPB Q24HR [facility] Rx#:[id number] Dextrose 5% in Water 1, 160 180 20 000 ml @ 20 mls/hr IV . Q24H [facility] Rx#:[id number] Pressure Bag 33 3 Intake, IV Titration 17.297 73.992 Amount Dexmedetomidine/0.9% NaCl 17.297 73.992 (Pmx) 400 mcg In Empty Bag 1 bag @ Titrate IV . Q0M [facility] Rx#:[id number] Tube Feeding 286 648 54 Other 600 800 Output: Drainage 90 30 RAHEEM #1. 10 RAHEEM #2 70 30 RAHEEM #3 10 Urine 2175 475 50 Stool 50 100 Other: Voiding Method Indwelling Catheter Indwelling Catheter ABP, PAP, CO, CI - Last Documented Arterial Blood Pressure 114/45 - Labs CBC & Chem 7: 09/09/20 04:00 09/09/20 04:00 Labs: Abnormal Lab Results - Last 24 Hours (Table) 09/08/20 09/08/20 09/08/20 Range/Units 12:06 17:15 23:42 RBC (3.80-5.40) m/uL Hgb (11.4-16.0) gm/dL Hct (34.0-46.0) % RDW (11.5-15.5) % ABG pH (7.35-7.45) ABG pCO2 (35-45) mmHg ABG pO2 (83-108) mmHg ABG Total CO2 (19-24) mmol/L ABG O2 Saturation (94-97) % Potassium (3.5-5.1) mmol/L Chloride (98-107) mmol/L BUN (7-17) mg/dL Glucose (74-99) mg/dL POC Glucose (mg/dL) 129 H 116 H 149 H (75-99) mg/dL Calcium (8.4-10.2) mg/dL Alkaline Phosphatase (38-126) U/L Total Protein (6.3-8.2) g/dL Albumin (3.5-5.0) g/dL 09/09/20 09/09/20 09/09/20 Range/Units 04:00 04:00 05:05 RBC 2.56 L (3.80-5.40) m/uL Hgb 7.3 L (11.4-16.0) gm/dL Hct 23.1 L (34.0-46.0) % RDW 17.3 H (11.5-15.5) % ABG pH (7.35-7.45) ABG pCO2 (35-45) mmHg ABG pO2 (83-108) mmHg ABG Total CO2 (19-24) mmol/L ABG O2 Saturation (94-97) % Potassium 3.4 L (3.5-5.1) mmol/L Chloride 110 H (98-107) mmol/L BUN 35 H (7-17) mg/dL Glucose 120 H (74-99) mg/dL POC Glucose (mg/dL) 135 H (75-99) mg/dL Calcium 8.1 L (8.4-10.2) mg/dL Alkaline Phosphatase 161 H (38-126) U/L Total Protein 5.8 L (6.3-8.2) g/dL Albumin 2.2 L (3.5-5.0) g/dL 09/09/20 Range/Units 05:07 RBC (3.80-5.40) m/uL Hgb (11.4-16.0) gm/dL Hct (34.0-46.0) % RDW (11.5-15.5) % ABG pH 7.50 H (7.35-7.45) ABG pCO2 30 L (35-45) mmHg ABG pO2 78 L (83-108) mmHg ABG Total CO2 25 H (19-24) mmol/L ABG O2 Saturation 97.7 H (94-97) % Potassium (3.5-5.1) mmol/L Chloride (98-107) mmol/L BUN (7-17) mg/dL Glucose (74-99) mg/dL POC Glucose (mg/dL) (75-99) mg/dL Calcium (8.4-10.2) mg/dL Alkaline Phosphatase (38-126) U/L Total Protein (6.3-8.2) g/dL Albumin (3.5-5.0) g/dL Microbiology - Last 24 Hours (Table) 09/08/20 Unknown Catheter Tip Culture - Preliminary Catheter Tip 09/03/20 18:02 Blood Culture - Preliminary Blood No Growth after 120 hours 09/02/20 18:52 Blood Culture - Final Blood No Growth after 144 hours 09/07/20 09:27 Blood Culture - Preliminary Blood No Growth after 24 hours
--- NOTE | 2020-09-09 08:20 | XR ---
EXAMINATION TYPE: XR chest 1V portable DATE OF EXAM: 09/09/2020 COMPARISON: Chest x-ray 09/08/2020 HISTORY: Postop coronary artery bypass graft TECHNIQUE: Single frontal view of the chest is obtained. FINDINGS: Findings are similar to prior exam. Instrumentation is stable. Pleural-parenchymal changes not significantly changed. Cardiac mediastinal silhouette is stable. IMPRESSION: Correlate for pneumonia, edema, ARDS.
[2020-09-09] MEDS: HEPARIN SODIUM,PORCINE 5,000 UNIT/ML 1 ML VIAL SQ SCH ×3 (08:47→23:33)
[2020-09-09] MEDS: CLOPIDOGREL 75 MG TAB PO SCH (08:47)
[2020-09-09] MEDS: ASPIRIN 325 MG TAB PO SCH (08:47)
[2020-09-09] MEDS: CEFEPIME 2 GM in SODIUM CHLORIDE 0.9% 100 ML IVPB SCH ×2 (08:47→20:53)
[2020-09-09] MEDS: CHLORHEXIDINE GLUCONATE 15 ML CUP MUCOUS MEM SCH ×2 (08:47→20:53)
[2020-09-09] MEDS: DAPTOmycin 500 MG in SODIUM CHLORIDE 0.9% 50 ML IVPB SCH (08:47)
[2020-09-09] MEDS: DEXTROSE 5% IN WATER 1,000 ML IV SCH (08:48)
[2020-09-09] MEDS: DRY MOUTH SPRAY 44.3 SPRAY/44.3 ML SPRAY MUCOUS MEM SCH ×4 (08:48→22:21)
--- NOTE | 2020-09-09 08:48 | P.PN ---
Subjective Progress Note Date: 09/09/20 Principal diagnosis: Shortness of breath, acute diastolic heart failure, bilateral pleural effusion, lactic acidosis, hypercapnic respiratory failure requiring BiPAP followed by nm chanical ventilation, deep sternal wound infection with MSSA, acute kidney injury, acute hyperkalemia, hyponatremia, acute transaminitis, hypotension requiring vasopressors use, acute anemia. Past medical history significant for coronary artery disease with left main stenosis status post 2 vessel CABG on 08/10/2020 with expected postoperative acute blood loss anemia, hypotension, and urinary retention as well as candidal stomatititus, hyponatremia, pulmonary fibrosis, asthma, hypertension, hyperlipidemia, previous tobacco dependence, obesity, osteoarthritis, cervical stenosis post anterior cervical disc decompression, discectomy and fusion, TIA as a child, family history of premature coronary artery disease. Paroxysmal Afib with RVR. POD #13 sternal exploration with sternal debridement. POD #6 removal of table and partial resection of the manubrium as well as partial sternectomy by Dr. Sethi, right pectoralis major myocutaneous flap, left pectoralis major myocutaneous flap by Dr. Whittaker. The patient was seen in follow-up today 09/09/2020 at her bedside in the intensive care unit. Currently she is resting in bed, is awake, alert with episodes of restlessness. She shakes her head no when asked if having any pain. She is squeezing her hands with verbal command and moving her legs with verbal command. She remains with generalized weakness to her bilateral upper and lower extremities. She remains intubated with mechanical ventilator support and her oxygen saturations are 98% on current mechanical ventilator settings. Her mechanical ventilator settings are currently assist control 20, TV 400, FiO2 35% and a PEEP of 5. Prevena dressing to her sternal incision is clean, dry and intact with scant serosanguineous drainage. 3 chest RAHEEM drains remain in place with scant serosanguineous drainage. Bedside telemetry showing normal sinus rhythm heart rate 93 BPM. T-max temperature in the last 24 hours is 99.4F and she remains on daptomycin and cefepime for antibiotic coverage. Dr. Gamboa from pulmonary medicine is at her bedside and has initiated a CPAP trial of 5 with a pressure support of 12 FiO2 40%. Laboratory results morning show a WBC count 9.0, hemoglobin 7.3, hematocrit 23.1, platelets 292, sodium 141, potassium 3.4, BUN 35, creatinine 0.86 and glucose 120. ABG results this morning show a pH 7.50, pCO2 30, pO2 78, HCO3 24, oxygen saturation 97.7, base excess 0.6. OG tube remains in place with continuous tube feeding vital AF at goal rate of 54 mL per hour with automatic water flushes of 200 mL every 4 hours. Yu catheter remains in place with adequate urine output with 335 mL output in the last 8 hours. Objective - Vital Signs Vital signs: Vital Signs Temp 99.2 F 09/09/20 04:00 Pulse 92 09/09/20 08:31 Resp 38 H 09/09/20 07:00 BP 115/64 09/09/20 06:00 Pulse Ox 97 09/09/20 07:00 Intake & Output 09/08/20 09/09/20 09/09/20 18:59 06:59 18:59 Intake Total 6005.734 5836.992 77 Output Total 2315 505 150 Balance -6672.201 7913.992 -73 Weight 89 kg Intake: IV 310 213 23 Cefepime 2 gm In Sodium 100 Chloride 0.9% 100 ml @ 25 mls/hr IVPB Q12HR [facility] Rx #:[id number] DAPTOmycin 500 mg In 50 Sodium Chloride 0.9% 50 ml @ 100 mls/hr IVPB Q24HR [facility] Rx#:[id number] Dextrose 5% in Water 1, 160 180 20 000 ml @ 20 mls/hr IV . Q24H [facility] Rx#:[id number] Pressure Bag 33 3 Intake, IV Titration 17.297 73.992 Amount Dexmedetomidine/0.9% NaCl 17.297 73.992 (Pmx) 400 mcg In Empty Bag 1 bag @ Titrate IV . Q0M [facility] Rx#:[id number] Tube Feeding 286 648 54 Other 600 800 Output: Drainage 90 30 RAHEEM #1. 10 RAHEEM #2 70 30 RAHEEM #3 10 Urine 2175 475 50 Stool 50 100 Other: Voiding Method Indwelling Catheter Indwelling Catheter ABP, PAP, CO, CI - Last Documented Arterial Blood Pressure 114/45 - Constitutional Constitutional Comment(s): This is a 75-year-old female patient who remains intubated with mechanical ventilator support. Currently has Precedex infusing at 0.03 mcg/kg per hour. His following some verbal commands with squeezing hands and moving her toes and legs with verbal stimuli. Shaking her head yes and no appropriately to questions. General appearance: Present: no acute distress - EENT Eyes: Present: PERRLA, normal appearance. Absent: scleral icterus ENT: Present: hearing grossly normal - Neck Details: Neck is supple, no JVD, no lymphadenopathy. - Respiratory Details: Lungs sounds essentially clear throughout, diminished her bilateral bases. No wheezes, rhonchi or crackles. Respirations are symmetrical and nonlabored with mechanical ventilator support. Oxygen saturations are 98% on an assist control 20, TV 400, FiO2 35% and a PEEP of 5. - Cardiovascular Details: Regular rhythm and rate. S1 and S2 present, negative for S3, gallop or murmur. Heart hugger is in place. Bedside telemetry showing normal sinus rhythm heart rate 93 BPM. Generalized +1 edema. - Gastrointestinal Gastrointestinal Comment(s): Abdomen is soft, nontender and nondistended. Active bowel sounds present in all 4 abdominal quadrants. No guarding or rigidity. Fecal management system in place with liquid brownish green liquid stool. OG tube in place with continuous tube feedings vital AF at goal rate of 54 mL per hour with automatic water flushes 200 mL every 4 hours. - Genitourinary Genitourinary Comment(s): Yu catheter for accurate I&O. Draining clear yellow urine with 335 mL output in the last 8 hours. - Integumentary Integumentary Comment(s): Skin is warm and dry. No clubbing or cyanosis is present. Prevena dressing is clean, dry and in place to her sternal incision. Scant serosanguineous drainage. 3 chest RAHEEM drains in place with prolapse suction draining scant serosanguineous drainage. - Neurologic Neurologic Comment(s): Awake and alert. Shaking her head yes and no appropriately to questions. Moving her lower extremities with verbal stimuli and squeezing in her hands with verbal stimuli. Remains with profound generalized weakness. - Musculoskeletal Musculoskeletal: Present: generalized weakness - Psychiatric Psychiatric Comment(s): Awake and alert. Unable to accurately assess her orientation at this time. - Allied health notes Allied health notes reviewed: nursing - Labs CBC & Chem 7: 09/09/20 04:00 09/09/20 04:00 Labs: Abnormal Lab Results - Last 24 Hours (Table) 09/08/20 09/08/20 09/08/20 Range/Units 12:06 17:15 23:42 RBC (3.80-5.40) m/uL Hgb (11.4-16.0) gm/dL Hct (34.0-46.0) % RDW (11.5-15.5) % ABG pH (7.35-7.45) ABG pCO2 (35-45) mmHg ABG pO2 (83-108) mmHg ABG Total CO2 (19-24) mmol/L ABG O2 Saturation (94-97) % Potassium (3.5-5.1) mmol/L Chloride (98-107) mmol/L BUN (7-17) mg/dL Glucose (74-99) mg/dL POC Glucose (mg/dL) 129 H 116 H 149 H (75-99) mg/dL Calcium (8.4-10.2) mg/dL Alkaline Phosphatase (38-126) U/L Total Protein (6.3-8.2) g/dL Albumin (3.5-5.0) g/dL 09/09/20 09/09/20 09/09/20 Range/Units 04:00 04:00 05:05 RBC 2.56 L (3.80-5.40) m/uL Hgb 7.3 L (11.4-16.0) gm/dL Hct 23.1 L (34.0-46.0) % RDW 17.3 H (11.5-15.5) % ABG pH (7.35-7.45) ABG pCO2 (35-45) mmHg ABG pO2 (83-108) mmHg ABG Total CO2 (19-24) mmol/L ABG O2 Saturation (94-97) % Potassium 3.4 L (3.5-5.1) mmol/L Chloride 110 H (98-107) mmol/L BUN 35 H (7-17) mg/dL Glucose 120 H (74-99) mg/dL POC Glucose (mg/dL) 135 H (75-99) mg/dL Calcium 8.1 L (8.4-10.2) mg/dL Alkaline Phosphatase 161 H (38-126) U/L Total Protein 5.8 L (6.3-8.2) g/dL Albumin 2.2 L (3.5-5.0) g/dL 09/09/20 Range/Units 05:07 RBC (3.80-5.40) m/uL Hgb (11.4-16.0) gm/dL Hct (34.0-46.0) % RDW (11.5-15.5) % ABG pH 7.50 H (7.35-7.45) ABG pCO2 30 L (35-45) mmHg ABG pO2 78 L (83-108) mmHg ABG Total CO2 25 H (19-24) mmol/L ABG O2 Saturation 97.7 H (94-97) % Potassium (3.5-5.1) mmol/L Chloride (98-107) mmol/L BUN (7-17) mg/dL Glucose (74-99) mg/dL POC Glucose (mg/dL) (75-99) mg/dL Calcium (8.4-10.2) mg/dL Alkaline Phosphatase (38-126) U/L Total Protein (6.3-8.2) g/dL Albumin (3.5-5.0) g/dL Microbiology - Last 24 Hours (Table) 09/08/20 Unknown Catheter Tip Culture - Preliminary Catheter Tip 09/03/20 18:02 Blood Culture - Preliminary Blood No Growth after 120 hours 09/02/20 18:52 Blood Culture - Final Blood No Growth after 144 hours 09/07/20 09:27 Blood Culture - Preliminary Blood No Growth after 24 hours - Imaging and Cardiology Chest x-ray: report reviewed, image reviewed Assessment and Plan Assessment: 1. Shortness of breath, acute diastolic heart failure, EF 55-60% on current TTE, bilateral pleural effusions 2. Lactic acidosis, septic shock, blood cultures positive for MSSA 3. Hypercapnic, hypoxic respiratory failure requiring BiPAP, with subsequent intubation and mechanical ventilation 4. Open sternal wound, surgically created, deep sternal wound infection with MSSA, S/P surgical exploration and debridement with daily dressing changes 5. Leukocytosis with bandemia, bandemia resolved, WBC trending down 6. Acute kidney injury, metabolic acidosis, metabolic acidosis resolved, kidney function returning to normal after receiving dialysis 7. Acute hyperkalemia, resolved 8. Acute transaminitis secondary to hypoperfusion, resolving 9. History of hypertension, hypotensive this admission requiring vasopressors, currently off vasopressors 10. Acute anemia, post transfusion PRBCs, on 11. Coronary artery disease with left main stenosis status post 2 vessel CABG on 08/10/2020 with expected postoperative acute blood loss anemia, hypotension, and urinary retention as well as candidal stomatititus 12. Hyponatremia, resolved 13. Pulmonary fibrosis, asthma 14. Hyperlipidemia, treated 15. Previous tobacco dependence 16. Obesity 17. Paroxysmal afib w/ RVR, atrial flutter, status post exclusion of the left atrial appendage using a 35 mm AtriClip, currently sinus rhythm 18. 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 Ventilator management per pulmonary medicine. Weaning trials managed by pulmonary critical care medicine. Currently on a CPAP trial with a CPAP of 5 pressure support 12 FiO2 40%. 2. Nephrology following, avoid nephrotoxins, diuretic management per nephrology recommendations. Lasix was increased to 40 mg IV twice a day. 3. Infectious disease following, blood cultures from 09/01/2020 and 09/02/2020 currently show no growth. Sputum culture from 09/04/2020 final result shows no growth. Remains on antibiotic coverage of cefepime and daptomycin. Previous blood, sputum and sternal wound cultures showed positive for MSSA. Afebrile the last 24 hours. 4. Continue aspirin, Plavix, , statin and beta sisi. We will increase meto prolol tartrate as tolerated. currently on metoprolol tartrate 50 mg by mouth twice a day. 5. No anticoagulation at this time. 6. Will continue to monitor daily labs, chest x-rays, and ABGs. 7. 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 The myopathy seems to continue to improve as the patient is moving her bilateral upper and lower extremities with verbal stimuli. Still with profound generalized weakness. Shaking her head yes and no appropriately to verbal stimuli. 8. GI/DVT prophylaxis. 9. Continue tube feeding for nutrition, per dietitian recommendations. Currently at goal rate of 54 mL per hour vital high-AF with automatic water flushes 200 mL every 4 hours. 10. Patient's daughter Roberta updated on her care per phone. 11. Replace electrolytes per protocol. 12. Continue per Prevena dressing to her sternal incision. Continue to monitor RAHEEM drainage. 13. Continue to follow culture results. 14. Surgical pathology results showed bone and soft tissue, sternum, debridement: Bone with focal features compatible with acute osteomyelitis. Attached fibrous soft tissue with abundant acute and chronic inflammation. Negative for granulomatous inflammation or malignancy 15. More recommendations to follow based on patient's clinical course. Time with Patient: Greater than 30
[2020-09-09] MEDS: FUROSEMIDE 10 MG/ML 4 ML VIAL IV SCH ×2 (08:49→20:53)
[2020-09-09] MEDS: METOPROLOL TARTRATE 50 MG TAB PO SCH ×2 (08:49→20:53)
[2020-09-09] MEDS: PANTOPRAZOLE 40 MG/10 ML VIAL IVP SCH (08:49)
--- NOTE | 2020-09-09 10:36 | P.PN ---
Subjective Patient is seen in follow-up for acute kidney injury. Renal function back to baseline. Nonoliguric. Maintained on IV Lasix. Also receiving tube feeding. Currently on 35% FiO2. Difficult to wean. Vital signs: Stable. HEENT: Intubated. LUNGS: Breath sounds decreased. HEART: Regular rhythm. ABDOMEN: Soft, no distention noted. EXTREMITITES: Trace edema. Objective - Vital Signs Vital signs: Vital Signs Temp 98.4 F 09/09/20 09:00 Pulse 108 H 09/09/20 09:00 Resp 46 H 09/09/20 09:00 BP 126/59 09/09/20 09:00 Pulse Ox 96 09/09/20 09:00 Intake & Output 09/08/20 09/09/20 09/09/20 18:59 06:59 18:59 Intake Total 5957.199 5163.992 377 Output Total 2315 505 350 Balance -5914.744 5026.992 27 Weight 89 kg Intake: IV 310 213 269 Cefepime 2 gm In Sodium 100 100 Chloride 0.9% 100 ml @ 25 mls/hr IVPB Q12HR [facility] Rx #:[id number] DAPTOmycin 500 mg In 50 100 Sodium Chloride 0.9% 50 ml @ 100 mls/hr IVPB Q24HR [facility]ORIB[facility] Rx#:[id number] Dextrose 5% in Water 1, 160 180 60 000 ml @ 20 mls/hr IV . Q24H [facility] Rx#:[id number] Pressure Bag 33 9 Intake, IV Titration 17.297 73.992 Amount Dexmedetomidine/0.9% NaCl 17.297 73.992 (Pmx) 400 mcg In Empty Bag 1 bag @ Titrate IV . Q0M [facility] Rx#:[id number] Tube Feeding 286 648 108 Other 600 800 Output: Drainage 90 30 RAHEEM #1. 10 RAHEEM #2 70 30 RAHEEM #3 10 Urine 2175 475 250 Stool 50 100 Other: Voiding Method Indwelling Catheter Indwelling Catheter Indwelling Catheter ABP, PAP, CO, CI - Last Documented Arterial Blood Pressure 150/55 - Labs CBC & Chem 7: 09/09/20 04:00 09/09/20 04:00 Labs: Abnormal Lab Results - Last 24 Hours (Table) 09/08/20 09/08/20 09/08/20 Range/Units 12:06 17:15 23:42 RBC (3.80-5.40) m/uL Hgb (11.4-16.0) gm/dL Hct (34.0-46.0) % RDW (11.5-15.5) % ABG pH (7.35-7.45) ABG pCO2 (35-45) mmHg ABG pO2 (83-108) mmHg ABG Total CO2 (19-24) mmol/L ABG O2 Saturation (94-97) % Potassium (3.5-5.1) mmol/L Chloride (98-107) mmol/L BUN (7-17) mg/dL Glucose (74-99) mg/dL POC Glucose (mg/dL) 129 H 116 H 149 H (75-99) mg/dL Calcium (8.4-10.2) mg/dL Alkaline Phosphatase (38-126) U/L Total Protein (6.3-8.2) g/dL Albumin (3.5-5.0) g/dL 09/09/20 09/09/20 09/09/20 Range/Units 04:00 04:00 05:05 RBC 2.56 L (3.80-5.40) m/uL Hgb 7.3 L (11.4-16.0) gm/dL Hct 23.1 L (34.0-46.0) % RDW 17.3 H (11.5-15.5) % ABG pH (7.35-7.45) ABG pCO2 (35-45) mmHg ABG pO2 (83-108) mmHg ABG Total CO2 (19-24) mmol/L ABG O2 Saturation (94-97) % Potassium 3.4 L (3.5-5.1) mmol/L Chloride 110 H (98-107) mmol/L BUN 35 H (7-17) mg/dL Glucose 120 H (74-99) mg/dL POC Glucose (mg/dL) 135 H (75-99) mg/dL Calcium 8.1 L (8.4-10.2) mg/dL Alkaline Phosphatase 161 H (38-126) U/L Total Protein 5.8 L (6.3-8.2) g/dL Albumin 2.2 L (3.5-5.0) g/dL 09/09/20 Range/Units 05:07 RBC (3.80-5.40) m/uL Hgb (11.4-16.0) gm/dL Hct (34.0-46.0) % RDW (11.5-15.5) % ABG pH 7.50 H (7.35-7.45) ABG pCO2 30 L (35-45) mmHg ABG pO2 78 L (83-108) mmHg ABG Total CO2 25 H (19-24) mmol/L ABG O2 Saturation 97.7 H (94-97) % Potassium (3.5-5.1) mmol/L Chloride (98-107) mmol/L BUN (7-17) mg/dL Glucose (74-99) mg/dL POC Glucose (mg/dL) (75-99) mg/dL Calcium (8.4-10.2) mg/dL Alkaline Phosphatase (38-126) U/L Total Protein (6.3-8.2) g/dL Albumin (3.5-5.0) g/dL Microbiology - Last 24 Hours (Table) 09/08/20 Unknown Catheter Tip Culture - Preliminary Catheter Tip 09/03/20 18:02 Blood Culture - Preliminary Blood No Growth after 120 hours 09/02/20 18:52 Blood Culture - Final Blood No Growth after 144 hours 09/07/20 09:27 Blood Culture - Preliminary Blood No Growth after 24 hours Assessment and Plan Plan: Assessment: 1. Acute kidney injury secondary to ATN secondary to hypotension/sepsis on admission and then from nafcillin. Baseline creatinine near 1. She did require hemodialysis earlier this admission has subsequently recovered kidney function. Creatinine 0.86 today. 2. Volume overload. Improving with diuresis. 3. Hypernatremia from lack of oral water intake. Improving. 4. Wound dehiscence of the sternum with MSSA bacteremia. On antibiotics. Also underwent sternal debridement this admission. 5. Acute hypoxia respiratory failure. Currently on 40% FiO2. 6. Status post CABG in 08/10/2020. 7. Acute blood loss anemia requiring multiple blood transfusions this admission. Also on Aranesp. 8. Hypokalemia from diuresis. Being replaced. Plan: Maintain IV Lasix. Maintain tube feeding with free water flushes. Continue to monitor renal function and urine output. Wean FiO2.
[2020-09-09 11:24] LABS: Glucose,Whole Blood 106 mg/dL (75-99)
[2020-09-09] MEDS: fentaNYL (PF) 50 MCG/ML 2 ML AMP IVP PRN (11:41)
[2020-09-09] MEDS: ASCORBIC ACID 500 MG TAB PO SCH (11:44)
[2020-09-09] MEDS: FERROUS SULFATE ORAL ELIXIR 300 MG/5 ML CUP PO SCH (11:44)
--- NOTE | 2020-09-09 13:03 | P.PN ---
Subjective Progress Note Date: 09/09/20 HISTORY OF PRESENT ILLNESS This is a 75-year-old female patient of Dr. Rich Aivla, Dr. Sloan and Dr. Guadalupe. She has a past medical history significant for hypertension, hype rlipidemia, pulmonary fibrosis, asthma, obesity, remote history of tobacco dependence with smoking 32 years ago, osteoarthritis, cervical stenosis post anterior cervical decompression, discectomy and fusion, TIA as a child at age 11 and family history of premature coronary artery disease with her father being diagnosed in his early 50s. Recently, the patient has been experiencing episodes of shortness of breath over the past 6 months with just minimal activity. She also complained of some lower extremity swelling which did resolve with some diuresis. she underwent a stress test which showed anterior wall ischemia with small reversible defect. a 2-D echocardiogram which showed mild aortic valve insufficiency, mild mitral valve regurgitation, mild tricuspid valve regurgitation and left ventricular function to be normal with an ejection fraction of 55%. Subsequently she underwent an elective heart catheterization on 07/27/2020 which demonstrated a left main stenosis with QING with a calculation of 2.6 mm, a 40% stenosis to her mid left anterior descending coronary artery and a 30% stenosis to her right coronary artery. Due to the patient's symptoms and findings on her heart catheterization of left main stenosis a consult was placed to Dr. Sethi from cardiothoracic surgery for further evaluation and treatment recommendations. During her preoperative workup her serum sodium level was found to be 120 and was admitted prior to surgery for treatment of hyponatremia. Last admission On 08/06/2020-08/19/20 the patient was admitted to the hospital for treatment of her hyponatremia, and once her hyponatremia was resolved on 08/10/2020, asubsequently taken to the operating room where Dr. Sethi performed a double vessel coronary artery bypass grafting surgery using the left internal mammary artery to left anterior setting coronary artery, a reverse greater saphenous vein graft from the aorta to the first obtuse marginal coronary artery, endoscopic harvesting of the left greater saphenous vein from the groin Upon completion of the surgery the patient was transferred to the intensive care unit where she was recovered, monitored hemodynamically and where she progressed cardiac rehabilitation phase Her oxygen was titrated down, she continued to work with physical/occupational therapy and cardiac rehabilitation, she was tolerating an oral diet, her pain was well controlled without narcotics and she was ready to be discharged home with [facility] care on postoperative day #9. Did not require home O2 on last admission however she required new medication changes including diuretics during that last admission. Patient comes in in worsening shortness of breath anasarca, no chest pain, has BARKER, edma without leg pain new medications from last visit was compliant, requiring lipitor 75bid, tolvaptan. meotprolol 75 bid plavix, lasix 40 mg daily losartain 25 asa 325, ferrous sulfate and fluconazole. patient comes in now for CHF, anarsarc ely pleural effusion, consult with dr Sethi. and cardiology, if okay will be cardiothoracic surgeon can also perform the thoracentesis, however with hypoxemia, also have requested Dr. Gamboa's services. Patient has a hemoglobin of 7.0 on and 3, platelet count of 305, hemoglobin right to admission was 8.0 denies any Hemoccult stools, creatinine was 1.60 from a previous of 0.9 blood pressure is in the low 90s systolic, pulse ox, 90 on 4 L nasal cannula, patient was not discharged with home O2 during her last admission 08/24: A-Team was called for mental status changes. Patient was found to have a blood pressure 99/65, heart rate of 85 and pulse ox of 96% on a nonrebreather with respiratory rate of 32. Patient was transferred to the ICU. She was started on vancomycin and cefepime. Patient has been seen by cardiology with plan to continue vasopressor support, patient may need pleurocentesis. Stat echocardiogram was done to rule out pericardial effusion or tamponade. Patient has been seen by nephrology for acute kidney injury secondary to ATN secondary to hypotension and cardiorenal syndrome. Patient is currently on bicarb drip, status post Lasix 80 mg IV once. Renal replacement therapy to be initiated immediately. Vascular consult in place for a dialysis catheter placement and start hemodialysis today with second treatment tomorrow. Sternal wound was producing thick yellowish brown fluid, was opened approximately 2 cm and deep culture was taken, packed and covered with 4 x 4 dressing. She is requiring vasopressors. She is hypothermic and warming blanket is in place.Patient had minimal output yesterday and none today. She is status post 2.5 L of fluids. 08/25 patient was examined in the ICU. She was able to maintain oxygenation on BiPAP overnight switch to high flow 15 m this morning. Patient did have episodes of agitation last night and was started on Seroquel. She did receive a dose of Seroquel prior to admission and was found to be resting comfortably. Patient is off pressors and bicarbonate drip and metabolic acidosis seemed to have cleared off. On evaluation of patient's lab, WBC is 14.3, hemoglobin 6.5 platelet 208 ABG this morning has a pH of 7.47 CO2 74. Bicarb 29. Sodium has improved to 126 chloride 96 BUN 43 creatinine 2.79 lactic acid has improved to 2.9 calcium 7 liver enzymes elevated AST at 2874 ALT 1469 alkaline phosphatase 192 CRP 356 BNP 13,000 UA does suggest some infection with WBC of 88 hyaline casts 33 protein 2+ urine blood trace nitrite negative leukocyte Estrace negative. Wound cultures positive for presumptive staph aureus. Patient's blood culture from yesterday are positive with presumptive staph aureus. Repeat blood cultures ordered. Patient received 1 unit of PRBCs for low hemoglobin. Urine output has improved to 20-40 mL's per hour. Patient did receive a dose of DDAVP for hyponatremia. Normal saline is running at 50 mL per hour. Did receive hemodialysis today with 2 L ultrafiltration. Patient was also noted to be in A. fib with RVR intermittently and her dose of Lopressor was increased to 25 mg every 8 hours. Continue daptomycin and cefepime for antibiotic coverage. Monitor patient's for QTC prolongation well on Seroquel. Patient has significant dehiscence of wound and may need I&D 08/26: She was intubated and placed on mechanical ventilation overnight with pulse ox of 96%, tidal volume 450, FiO2 50, PEEP of 5. Temperature max last evening was 101.2. Heart rate 82, blood pressure 120/53. WBC 9.6, hemoglobin 10.8, platelet count 159. Sodium 134, potassium 4.7, chloride 100, CO2 25, BUN 14 creatinine 1.83. Blood sugars running between 100 2753. Total bilirubin 3.3, AST 1067, ALT 993, alkaline phosphatase 251. Magnesium 2.1. Patient is on vasopressors. quantitative consultant atrial flutter alternating with sinus rhythm. Patient is also on propofol and Seroquel discontinued. Thoracic surgery is possible taking her to or for I&D and considering wound VAC. Patient is on Plavix. Echocardiogram reveals normal LV function and mild aortic stenosis. Patient is currently on daptomycin and cefepime per Dr. Mcintyre. Urine output remains low at 15-20 mL per hour. Should she is scheduled for third hemodialysis treatment today. Patient is scheduled for Lasix 80 mg IV this afternoon. 08/27 she remains in the ICU, intubated and mechanically ventilated. Patient is going to the OR for debridement today. Patient remains intubated on 50% FiO2 and PEEP of 5, assist control rate of 20volume 450. Continues to require Levophed at 11mcg/ hr . Blood clots and culture positive for MSSA. Urine output is 50-60 mL per hour. Patient continues to be on sedation from propofol at 50 max per KG permanent. IV fluids at KVO. Patient continues to have good urine output after a dose of 80 mg of IV Lasix today. Vision tolerated 2.5 L ultrafiltration yesterday and is started on hemodialysis on August 24. No holiday sedation today. Plan to continue Lasix 80 IV once daily and holding hemodialysis. Anticoagulation held for debridement. 08/28 patient remains in the ICU. Did have sternal Exploration and debridement yesterday remains sedated on propofol. Patient continues to have high temp of 101.6, to 233 tachycardic 111 blood pressure 106/51 oxygen saturation 95% on 50% FiO2. Labs suggest a leukocytosis of 24.3 hemoglobin stable at 10.7 platelet count has dipped dropped to 78, he really suggest a pH of 7.53 pCO2 30 PaO2 57, chloride of 110 potassium 3.5 and anion gap of 6 BUN 46 creatinine 0.9 calcium 7.8 ALT 3:15 alkaline phosphatase 312 AST 112 blood cultures from 08/26 positive for staph aureus. Urine output 1.2 L in 24 hours Repeat blood cultures sent today. Patient continues to be normal sinus rhythm not currently on any anticoagulation at the possibility of going for another debridement. Patient's continues to be on levo fed and still stays intubated. Continue IV Lasix. Patient initiated on IV Lasix 08/29: Patient remain in the ICU, remain on mechanical ventilation, sternal exploration and debridement was done and still have packing area within open wound at this point. Oxygenation is better patient is not 3 to be off vent at this point. Her urine output has been good and hemodynamically stable. 08/30: Patient still on mechanical ventilation, his sternum 1 and was changed today still have significant amount of infection and pus was packed still open. Patient remain on nafcillin and Moni mycin. Still having positive blood culture. 08/31: Patient is more awake today doing trial of weaning parameter try to get patient off the respirator, her incision and infection along the sternum is no change still have packing on still on IV antibiotics. Hemodynamically is more stable. 09/01: Patient evaluated in the ICU, continues on mechanical ventilation. Wound packing was removed yesterday, purulence was noted on the packing, deep near the heart and purulence around the heart. She continues on IV clindamycin and nafcillin. Patient was taken off sedation yesterday for a trial of weaning, but she became hypertensive and tachypneic so she is placed back on sedation. 09/02: Patient remains intubated and on mechanical ventilation with tidal volume 400, FiO2 of 50% and PEEP of 5. Patient has been off sedation since Monday. She is receiving OG tube feedings. She appears to be opening meaning her eyes and can shake her head. Otherwise not moving extremities. She has a wound VAC in place to the sternal wound. Wound cultures and blood culture positive for MSSA. She is scheduled for sternal wound excision and debridement with flap reconstruction and graft tomorrow with Dr. Whittaker. Repeat blood work reveals WBC of 13.6, hemoglobin 8.5. BUN 66 and creatinine 1.62, potassium 3.2 and has been replaced, blood sugars running between 107 and 132. Because renal functioning is worsening, nephrology has recommended holding nafcillin. Repeat chest x-ray reveals correlate for pneumonia, edema, ARDS. 09/03: She remains in the intensive care unit intubated and on mechanical ventilation with tidal volume 400, FiO2 40, PEEP of 5. Patient is awake with eyes open. She nodded her head no to having pain. She had a temperature this morning of 101.6 at 6 AM. Antibiotics are currently in the form of Kefzol. Repeat chest x-ray was done this morning and report is pending. Patient has been seen by neurology and doubt critical illness neuropathy. CAT scan of the brain and cervical spine done that showed no acute fracture or dislocation in the cervical spine. No acute intracranial hemorrhage, mass effect or midline shift. Ongoing airspace disease. Cardiology has recommended reinitiating statin. Temperature max 101.6, heart rate 101, blood pressure 117/52, pulse ox 95%. Repeat blood work reveals WBC 15.4, hemoglobin 8.3, platelet count 243. Sodium 149, potassium 2.8, chloride 111, CO2 28, BUN 66 and creatinine 1.49. Total bilirubin 2.4, AST 43, ALT 33 and alkaline phosphatase 260. All previous blood cultures have been positive for staph aureus MSSA. A repeat blood culture on August 2029 showing no growth at 24 hours. 09/04: Yesterday, patient underwent excision of sternal wound, partial sternotomy and pectoralis flap procedure. This morning, patient had new lines done by pulmonary medicine. Dr. Mcintyre has recommended continuing Kefzol and repeat blood cultures are in progress. Repeat chest x-ray reveals rotated exam, findings similar to prior, correlate for edema, pneumonia, ARDS. Cardiothoracic surgeryhas ordered a consult with Dr. Yuan. He has evaluated patient for global weakness and does not think she has new cervical spine issues that would cause her global weakness.patient continues to have fever with temperature maximum 102.2, tachycardic in the low 100s, respiratory rate 30, blood pressure 103/60, pulse ox 98%. She remains intubated and on mechanical ventilation with tidal volume 400, FiO2 50, PEEP of 5. WBC 17.5, hemoglobin 7.2, platelet count 328. Sodium 149, potassium 3.8, chloride 115, CO2 26, BUN 59 and creatinine 1.37. Blood sugars running 129-144. Magnesium 2.6. Total bilirubin 2.0, AST 39, alkaline phosphatase 197, ALT 19.. sputum culture has been obtained. Most recent blood culture from September 02 showing no growth at 24 hours and blood culture from September 01 is no growth at 48 hours. Patient is currently on very minimal sedation. 09/05: Patient remains in the ICU, intubated and on mechanical ventilation with tidal volume 400, FI02 40% and peep 5. Patient continues to run fevers. Dr. Mcintyre has changed antibiotics to cefepime and daptomycin. Blood cultures dated September 01, , are showing no growth. Sputum culture is in process. quantitative consultant sinus tachycardia. Heart rate has been running between 108 and 121, respiratory rate 31, blood pressure 90/32, pulse ox 98%. She remains on low dose norepinephrine. Patient is off sedation with eyes open. She is not moving extremities. She has been evaluated by orthopedic spine and spinal etiology has essentially been ruled out. Patient is also been evaluated by neurology and critical care neuropathy has also been essentially ruled out. Patient stabilized, hopefully a MRI can be performed. WBC 13.4, hemoglobin 5.4 and this was rechecked, platelet count 313, sodium 152, potassium 3.6, BUN 45 and creatinine 1.2. Patient is receiving 1 unit of packed RBCs. Nephrology is continuing IV Lasix 40 mg daily. Patient is on PEG tube feedings and tolerating. 09/06: Patient remains in intensive care unit. She is intubated and on mechanical ventilation with tidal volume 400, FiO2 40, PEEP 5. The patient has her eyes open, she is responsive with facial movement, she is able to minimally move lower extremities. She has a fecal management system in place as well as Yu catheter with good urine output. Patient was running fevers yesterday until evening. Patient has been afebrile following a reading of 1800 last night of 100.9. She is on IV antibiotics with cefepime and daptomycin. Heart rate 95-112, respiratory rate 28. Repeat chest x-ray reveals cardiomegaly with increased alveolar and interstitial edema and/or infiltrates bilaterally remain present. Possible ARDS. Hemoglobin today is at 8 status post She is continued on IV Lasix per nephrology. Potassium replaced. W BC 10.6, platelet count 276. Sodium 150, potassium 3.6, chloride 119, CO2 24, BUN 42 and creatinine 1.03. Blood sugar 140. Patient is receiving tube feedings at goal rate. 09/07: She remains in the intensive care unit, intubated and on mechanical ventilation with FiO2 of 40%, PEEP of 5. She remains off sedation and is awake and able to follow some minimal commands. Mature max 101.6, heart rate 104, respiratory rate 34, blood pressure 81/30, pulse ox 97%. AP blood work reveals WBC 11.8, hemoglobin 9.5, platelet count 347. Sodium 148, potassium 3.7, chloride 117, CO2 25, BUN 38 and creatinine 0.96. Blood sugar running between 112 117. Magnesium 2.0. Total bilirubin 1.5, AST 41, ALT 19, alkaline phosphatase 181. Albumin 2.4. Blood cultures on every remain without g rowth at 120 hours. Sputum culture has been finalized no growth. Patient is continued on cefepime and optimizing. PICC line is being inserted this morning by interventional radiology. OG tube with feedings at goal. Patient is not currently on vasopressors. 32: Patient remains in the intensive care unit intubated and on mechanical ventilation with tidal volume 400, FiO2 35 and PEEP of 5. Patient was on CPAP yesterday for about 8 hours but was unable to tolerate for only short period today. Her mental status has been labile. She is intermittently following commands with no response and staring. Patient appears to be uncomfortable. Generalized anasarca noted. She has brown liquid stool from fecal management system and we will check a C. diff toxin. Most likely diarrhea is only from tube feedings. Temperature max 101.6. Heart rate 113, respiratory rate 39, blood pressure 120/61, pulse ox 99%. Repeat chest x-ray reveals correlate for pneumonia, edema, ARDS. Repeat blood work reveals WBC 10, hemoglobin 7.4, platelet count 298. Sodium 145, potassium 3.4, chloride 114, CO2 24, BUN 33 and creatinine 0.85. Blood sugars are running between 115 and 122. Total bilirubin 1.2, AST 39, ALT 23, and phosphatase 150. Urinalysis sent last evening showed blood moderate, RBC 64, WBC 7. Blood cultures since every are showing no growth. 3: Patient remains in the intensive care unit intubated and on mechanical ventilation. Patient has been started on Precedex. She remains with [address] to the sternal wound. Yu catheter with good urine output. Fecal management system in place. C. difficile toxin was negative. 2. Feedings are at goal. The patient is not focusing eyes, no purposeful movements. Patient has been afebrile greater than 24 hours. Heart rate 90s, respiratory rate 30s to 40s, blood pressure 112/64, pulse ox 97%. WBC 9.0, hemoglobin 7.3, platelet count 292. Potassium 3.4 and will be replaced. Blood sugars running between 100 2049. Alkaline phosphatase 161. TSH 3.7-0. We have also added a vitamin B12 level. Lasix was increased to twice daily. REVIEW OF SYSTEMS Unable to obtain due to mental status change/intubation. PHYSICAL EXAMINATION Gen: This is a 75-year-old female. Patient is resting in ICU bed and appears to be comfortable. HEENT: Head is atraumatic, normocephalic. Pupils equal, round. Sclerae is anicteric. Patient intubated and on mechanical ventilation. NECK: Supple. No JVD. No lymphadenopathy. LUNGS: Diminished. No wheezes or rhonchi. No intercostal retractions. HEART: Regular rate and rhythm. 2/6 systolic murmur. Dressing to sternal wound, wound VAC, 3 RAHEEM drains with serosanguineous drainage. ABDOMEN: Soft. Bowel sounds are present. No masses. No tenderness. EXTREMITIES: 2+ bilat pitting edema. Generalized anasarca. NEUROLOGICAL: Patient resting comfortably in bed, eyes are open and staring, no blinking noted, patient is unresponsive and not making any purposeful movements. ASSESSMENT AND PLAN 1. Acute diastolic heart failure, (POA) EF 55%, mild AI and mild MR and mild TR, also complicated by severe protein calorie malnutrition, Cardiology consult appreciated. Continue Lasix 40 mg IV daily managed by nephrology. 2. Acute hypoxemic respiratory failure. (POA) Patient has underlying pulmonary hypertension as well, consult with coronary. Patient is intubated and on mechanical ventilation. Pulmonary medicine is managing. 3. Acute kidney injury secondary to ATN secondary to hypotension and cardiorenal syndrome. (POA) Patient is status post dialysis catheter placement, hemodialysis. Patient is followed closely by nephrology. 4. Hyperkalemia secondary to potassium supplementation, losartan and acute kidney injury as well as severe acidosis. (POA) Consult with nephrology appr eciated. Continue medical management. 5. Metabolic acidosis secondary to acute kidney injury. (POA) 6. Metabolic encephalopathy secondary to acute kidney injury, acute heart failure, acute respiratory failure, metabolic acidosis and hyperkalemia. (POA) improving. 7. Sepsis with septic shock with multiorgan failure with metabolic encephalopathy, acute kidney injury, acute heart failure, acute respiratory failure, MSSA bacteremia. (POA) status post sternal exploration and sternal debridement on August 27. 8. Sepsis with sternal wound dehiscence. (POA) Status post sternal exploration and sternal debridement on 08/27 followed by excision of sternal wound, partial sternotomy and pectoralis flap procedure on 09/03. Infectious disease consult appreciated. Antibiotics have been transitioned to cefepime and daptomycin. 9. Acute blood loss anemia, postop, status post transfusion of 5 units of packed RBCs. Continue to monitor. 10. Hyponatremia. Continue to monitor. 11. CAD, with prior CABG performed on 08/10/2020, two-vessel, involving HOLLAND to LAD, and reverse greater saphenous vein to obtuse marginal coronary artery. Continue aspirin 325 mg daily, Plavix 75 mg daily, Toprol all 75 mg twice a day, 12. Severe protein calorie malnutrition, with anasarca and hypotension. Continue tube feedings. 13. History of pulmonary fibrosis. Continue duo nebs and albuterol 14. Asthma, mild intermittent. Continue ipratropium albuterol nebulizers 15. Hyperlipidemia. Continue statin daily 16. Hypertension. Currently hypotensive 17. GI prophylaxis. Pantoprazole 18. Critical care neuropathy essentially ruled out by and neurology. 19. DVT prophylaxis: SCDs 20. Blood sugar management in a nondiabetic. insulin scale every 6 hours. 21. Acute transaminitis secondary to hypoperfusion. 22. Chronic kidney disease stage II. Prognosis guarded DISCHARGE PLAN TBD. Impression and plan of care have been directed as dictated by the signing physician. Monica Fragoso nurse practitioner acting as scribe for signing physician. Objective - Vital Signs Vital signs: Vital Signs Temp 98.4 F 09/09/20 09:00 Pulse 108 H 09/09/20 09:00 Resp 46 H 09/09/20 09:00 BP 126/59 09/09/20 09:00 Pulse Ox 96 09/09/20 09:00 Intake & Output 09/08/20 09/09/20 09/09/20 18:59 06:59 18:59 Intake Total 6427.400 2396.992 377 Output Total 2315 505 350 Balance -6888.952 8397.992 27 Weight 89 kg Intake: IV 310 213 269 Cefepime 2 gm In Sodium 100 100 Chloride 0.9% 100 ml @ 25 mls/hr IVPB Q12HR [facility] Rx #:[id number] DAPTOmycin 500 mg In 50 100 Sodium Chloride 0.9% 50 ml @ 100 mls/hr IVPB Q24HR [facility] Rx#:[id number] Dextrose 5% in Water 1, 160 180 60 000 ml @ 20 mls/hr IV . Q24H [facility] Rx#:[id number] Pressure Bag 33 9 Intake, IV Titration 17.297 73.992 Amount Dexmedetomidine/0.9% NaCl 17.297 73.992 (Pmx) 400 mcg In Empty Bag 1 bag @ Titrate IV . Q0M [facility] Rx#:[id number] Tube Feeding 286 648 108 Other 600 800 Output: Drainage 90 30 RAHEEM #1. 10 RAHEEM #2 70 30 RAHEEM #3 10 Urine 2175 475 250 Stool 50 100 Other: Voiding Method Indwelling Catheter Indwelling Catheter Indwelling Catheter ABP, PAP, CO, CI - Last Documented Arterial Blood Pressure 150/55 - Labs CBC & Chem 7: 09/09/20 04:00 09/09/20 04:00 Labs: Abnormal Lab Results - Last 24 Hours (Table) 09/08/20 09/08/20 09/08/20 Range/Units 12:06 17:15 23:42 RBC (3.80-5.40) m/uL Hgb (11.4-16.0) gm/dL Hct (34.0-46.0) % RDW (11.5-15.5) % ABG pH (7.35-7.45) ABG pCO2 (35-45) mmHg ABG pO2 (83-108) mmHg ABG Total CO2 (19-24) mmol/L ABG O2 Saturation (94-97) % Potassium (3.5-5.1) mmol/L Chloride (98-107) mmol/L BUN (7-17) mg/dL Glucose (74-99) mg/dL POC Glucose (mg/dL) 129 H 116 H 149 H (75-99) mg/dL Calcium (8.4-10.2) mg/dL Alkaline Phosphatase (38-126) U/L Total Protein (6.3-8.2) g/dL Albumin (3.5-5.0) g/dL 09/09/20 09/09/20 09/09/20 Range/Units 04:00 04:00 05:05 RBC 2.56 L (3.80-5.40) m/uL Hgb 7.3 L (11.4-16.0) gm/dL Hct 23.1 L (34.0-46.0) % RDW 17.3 H (11.5-15.5) % ABG pH (7.35-7.45) ABG pCO2 (35-45) mmHg ABG pO2 (83-108) mmHg ABG Total CO2 (19-24) mmol/L ABG O2 Saturation (94-97) % Potassium 3.4 L (3.5-5.1) mmol/L Chloride 110 H (98-107) mmol/L BUN 35 H (7-17) mg/dL Glucose 120 H (74-99) mg/dL POC Glucose (mg/dL) 135 H (75-99) mg/dL Calcium 8.1 L (8.4-10.2) mg/dL Alkaline Phosphatase 161 H (38-126) U/L Total Protein 5.8 L (6.3-8.2) g/dL Albumin 2.2 L (3.5-5.0) g/dL 09/09/20 Range/Units 05:07 RBC (3.80-5.40) m/uL Hgb (11.4-16.0) gm/dL Hct (34.0-46.0) % RDW (11.5-15.5) % ABG pH 7.50 H (7.35-7.45) ABG pCO2 30 L (35-45) mmHg ABG pO2 78 L (83-108) mmHg ABG Total CO2 25 H (19-24) mmol/L ABG O2 Saturation 97.7 H (94-97) % Potassium (3.5-5.1) mmol/L Chloride (98-107) mmol/L BUN (7-17) mg/dL Glucose (74-99) mg/dL POC Glucose (mg/dL) (75-99) mg/dL Calcium (8.4-10.2) mg/dL Alkaline Phosphatase (38-126) U/L Total Protein (6.3-8.2) g/dL Albumin (3.5-5.0) g/dL Microbiology - Last 24 Hours (Table) 09/08/20 Unknown Catheter Tip Culture - Preliminary Catheter Tip 09/03/20 18:02 Blood Culture - Preliminary Blood No Growth after 120 hours 09/02/20 18:52 Blood Culture - Final Blood No Growth after 144 hours 09/07/20 09:27 Blood Culture - Preliminary Blood No Growth after 24 hours
[2020-09-09] MEDS ORDERED: propofoL 100 ML IV ONE (13:28)
[2020-09-09] MEDS: NOREPINEPHRINE 8 MG in SODIUM CHLORIDE 0.9% 250 ML IV SCH (14:16)
[2020-09-09 14:31] LABS: Magnesium 2.2 mg/dL (1.6-2.3); Potassium 3.6 mmol/L (3.5-5.1)
[2020-09-09] MEDS ORDERED: POTASSIUM BICARBONATE/CIT AC 20 MEQ TABLET.EFF NG-TUBE SCH (16:00)
[2020-09-09 17:29] LABS: Glucose,Whole Blood 121 mg/dL (75-99)
--- NOTE | 2020-09-09 18:54 | PN ---
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 INTERVAL HISTORY: The patient is currently afebrile. The patient remains intubated on the vent. The patient is hemodynamically stable, not on any pressor support. FiO2 is currently at 35%. No significant purulent secretions in the ET or any worsening diarrhea reported by nursing staff. PHYSICAL EXAMINATION: Blood pressure 111/41 with a pulse of 82, temperature 98. She is 98% on 35% FiO2. General description is an elderly female lying in bed in no distress. RESPIRATORY SYSTEM: Unlabored breathing with decreased breath sounds at the base. No wheeze. HEART: S1, S2. Regular rate and rhythm. ABDOMEN: Soft. No tenderness. EXTREMITIES: No edema of the feet. LABS: Hemoglobin 7.3, white count 9.0, BUN of 35, creatinine 0.86. Catheter tip culture so far negative. 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 The patient is currently covered with daptomycin and cefepime; to continue in view of clinical response to it, and monitor clinical course closely. MMODL / IJN: [id number] /
[2020-09-09] MEDS: MELATONIN 3 MG TABLET PO SCH (20:55)
[2020-09-09 23:33] LABS: Glucose,Whole Blood 126 mg/dL (75-99)
[2020-09-10] MEDS: IPRATROPIUM-ALBUTEROL 3 ML NEB INHALATION SCH ×6 (00:20→21:25)
[2020-09-10 04:35] LABS: Anisocytosis Slight; Basophils # (A) 0.1 k/uL (0-0.2); Basophils % (A) 1 %; Eosinophils # (A) 0.6 k/uL (0-0.7); Eosinophils % (A) 5 %; HCT 23.5 % (34.0-46.0); HGB 7.4 gm/dL (11.4-16.0); Hypochromasia Moderate; Lymphocytes % (A) 24 %; MCH 28.7 pg (25.0-35.0); MCHC 31.3 g/dL (31.0-37.0); MCV 91.5 fL (80.0-100.0); Mean Platelet Volume 9.2; Monocytes # (A) 0.6 k/uL (0-1.0); Monocytes % (A) 4 %; Neutrophils % (A) 64 %; Platelet Count 403 k/uL (150-450); Poikilocytosis Slight; RBC 2.56 m/uL (3.80-5.40); RDW 17.7 % (11.5-15.5); WBC 12.5 k/uL (3.8-10.6)
[2020-09-10 04:36] LABS: Albumin 2.4 g/dL (3.5-5.0); Calcium 8.1 mg/dL (8.4-10.2); Potassium 3.5 mmol/L (3.5-5.1); Total Protein 6.3 g/dL (6.3-8.2)
[2020-09-10] MEDS: POTASSIUM BICARBONATE/CIT AC 20 MEQ TABLET.EFF PO SCH ×3 (04:48→09:05)
[2020-09-10 04:58] LABS: ABG Base Excess 1.5 mmol/L; ABG HCO3 25 mmol/L (21-25); ABG Oxygen Saturation 98.8 % (94-97); ABG PCO2 34 mmHg (35-45); ABG PH 7.48 (7.35-7.45); ABG PO2 96 mmHg (83-108); ABG TCO2 26 mmol/L (19-24); Allen Test Performed? Yes
[2020-09-10 06:18] LABS: Glucose,Whole Blood 121 mg/dL (75-99)
[2020-09-10] MEDS: INSULIN ASPART (NovoLOG) 100 UNIT/ML VIAL SQ SCH ×4 (06:18→23:53)
--- NOTE | 2020-09-10 07:26 | P.PN ---
Subjective Progress Note Date: 09/10/20 wound infection. Reevaluated today on 08/28/2020, patient remains in the ICU, intubated and mechanically ventilated. Her assist-control rate is 20, volume is 450 FiO2 is 50% PEEP was at 5 and I increased it up to 8. ABG showed a pO2 of 57 pCO2 of 30 pH of 7.53. O2 saturation on the monitor is 96%. Patient remains on norepinephrine at 0.07 mcg/kg/m, she is also on propofol at 65 mcg/kg/m. Patient is on enteral feeding. Remains on cefepime and daptomycin for her positive blood cultures/MSSA. Patient is also on Lasix at 80 mg IV push every 24 hours. Her urine output has been good. And her chest x-ray continues to show mild congestive heart failure changes. Patient has leukocytosis with WBC count 24.3, electrolytes are normal BUN is 46 creatinine 0.90. Liver enzymes are trending down slowly Patient was reevaluated today on 08/29/2020, remains intubated and mechanically ventilated. She is on assist control rate of 20 tidal volume is 450 FiO2 is 50% and PEEP of 8. ABG showed a pO2 of 56 pCO2 of 35 pH of 7.50 however her O2 saturation on the monitor is 99%. Patient remains on norepinephrine at 0.05 mcg/kg/m, he is on propofol at 70 mcg/kg/m, she is on Lasix 80 mg IV push daily, with good urine output. IV fluid mostly at KVO. Antibiotics garzon she is on cefazolin and clindamycin. Patient had MSSA in the blood and in the sternal wound. Chest x-ray continues to show evidence of pulmonary edema, and now she seems to be developing some consolidation in the right upper lobe medially. Her sternum remains open, decision regarding sternal closure will be made in the next 24-48 hours by thoracic surgery. Patient continues to have leukocytosis with WBC count of 24.2 hemoglobin is 10.6, basic metabolic profile is normal renal profile is normal not requiring any further dialysis, and she has good urine output responding well to diuretics. Liver enzymes seem to be trending down 08/30/2020 the patient remains intubated on a mechanical ventilator. This morning, she has an assist-control at the rate of 20 with tidal volume of 450 and the flow of 70 with a FiO2 of 50% with a PEEP of 8. The morning blood gases from today showed a pH of 7.55, and the pCO2 is a 35 with a pO2 of 72. Necessity ventilator changes were done. Peak airway pressure was 37. Static pressure was 32. Chest x-ray still showing diffuse bilateral pulmonary infiltrates consistent with pneumonia although possibility of an acute lung injury/ARDS cannot be completely excluded. ET tube is in a good location. The patient this morning is sedated with propofol which is running at 50 mcg/kg per minute. Sedation holiday was given this morning to evaluate her mental status. I was told yesterday that the patient did have some diminished level of consciousness once she was off the sedation. Nevertheless she was placed on sedation again to maintain synchrony with the mechanical ventilator. She is septic with staff aureus, MSSA has been cultured in her sputum, and her blood and in her sternal wound. Her current antibiotic coverage including a combination of nafcillin and clindamycin. She is afebrile. Sternal wound is being monitored by the cardiothoracic surgery team. Daily dressing changes are being done. There is still output which is purulent according to the nursing staff. Pressors and the patient is currently on norepinephrine running at 0.04 mcg/kg per minute. Renal function is improving and the creatinine is down to 0.78. The white cell count is at 19.8 with hemoglobin of 10.2 and a platelet count of 90. Liver function tests continue to improve with an AST of 68, ALT of 77 and the last blood culture was taken from 08/29/2020 was again positive for gram-positive bacteria most likely MSSA. The patient has orogastric tube in place and she is receiving vital high protein at a rate of 23 mL an hour. This is at goal for now. No abdominal distention. No increased residuals for now. She is afebrile. Progress note dated 08/31/2020. This is a 75-year-old female was admitted to the hospital on August 22, she came in for a sternal wound infection, and worsening respiratory status with heart failure. Unfortunately, she developed severe hypoxemic respiratory failure and required intubation on August 25. She was discovered to have a sternal wound infection and went to the operating room for debridement, on August 27. Microbiology is positive for methicillin sensitive staph aureus, and she remains on nafcillin and clindamycin. This patient initially had a two- vessel bypass grafting on 08/10/2020, and was discharged on 08/19/2020. Currently, the patient remains on the volume assist control mode, rate is 20, tidal volume is 400, FiO2 40%, and PEEP of 8. Blood gases show a PaO2 of 65, a PaCO2 39, and a pH is 7.58. His blood gases consistent with a relative hypoxemia, and a severe metabolic alkalosis. Currently, the norepinephrine has been weaned off. She remains on saline at 25 mL an hour, and she is currently not on any sedation. She's getting vital high protein at 23 mL an hour with a goal of 28 mL an hour. Today, regarding do a spontaneous breathing trial, on pressor support of 15, CPAP of 5. If the patient shows any signs of deterioration, such as tachycardia, tachypnea, hypertension, diaphoresis, higher respiratory rates, and/or lower tidal volumes, the patient will be switched back to the volume assist control mode with the. Progress note dated 09/01/2020. 75-year-old female admitted back on August 22. She came into the hospital with a sternal wound infection. In addition, she had worsening respiratory status, with heart failure. She developed reinaldo hypoxemic respiratory failure and required intubation on August 25. At that time, she was discovered to have a sternal wound infection, secondary to staph aureus, and went to the operating room for debridement. This was on August 27. Microbiology is positive for methicillin sensitive staph aureus, and she remains on nafcillin and clindamycin. The patient had a two-vessel bypass grafting done on August 10, and was discharged on August 19. Currently, she remains on the volume assist control modality, the rate of 20, tidal volume 400, FiO2 50%, and PEEP of 5. This morning's blood gases, show a PaO2 of 58, a PaCO2 of 40, and a pH is 7.61. These arterial blood gases are consistent with hypoxemia, and a severe metabolic alkalosis. The FiO2 was increased from 40-50%. Currently, she is on propofol at 20 mcg/kg/m, saline at 15 mL an hour, and vital high protein at 54 mL an hour, which is goal. Today, we are going to ensure that her potassium exceeds 4.5, DC her Lasix, and add Diamox 500 mg a day. We also increased the FiO2 earlier this morning to 50%. She will not wean with his profound metabolic alkalosis, and likely, we will hypoventilate and retain carbon dioxide, to balance out her pH. Hence, it's imperative that we treat the alkalosis aggressively. Progress note dated 09/04/2020. 75-year-old female, admitted back on August 22. She came into the hospital with a sternal wound infection. She had worsening respiratory status with heart failure, and developed reinaldo hypoxemic respiratory failure and required intubat ion on 08/25. At that time, she was discovered to have a sternal wound infection secondary to staph aureus, and went to the operating room on 08/27, for debridement. Microbiology was positive for methicillin sensitive staph aureus. The patient had a two-vessel bypass grafting done on 08/10/2020, and was discharged on 08/19. She remains on the mechanical ventilator. She is on the volume assist control mode, rate of 20, tidal volume 400, FiO2 50%, and a PEEP of 5. She's currently on norepinephrine at 6.1 g her minute, D5W with half-normal saline and 20 mEq of potassium at 75 mL an hour, and tube feeds are currently on hold. This morning, we put a right femoral triple-lumen catheter in, as well as a right brachial arterial line. She received both fentanyl and Nimbex for the procedure. She is also postop day #1, status post excision of sternal wound, right pectoralis major myocutaneous flap, and left pectoralis major myocutaneous flap procedure. The patient's currently reasonably stable in the intensive care unit. No plans on any weaning her extubation at this time. Current laboratory data includes a white count of 17.5, hemoglobin 7.2, hematocrit 23.4, and platelet count 328,000. Morning arterial blood gas shows a PaO2 of 98, a PaCO2 of 34, and pH is 7.48. This blood gases consistent with normoxemia, and a mild respiratory and metabolic alkalosis. Sodium is 149, po tassium is 3.8, chloride 115, CO2 26, anion gap 8, BUN 59, creatinine 1.37. Chest x-ray shows bilateral infiltrates, which could relate to either pneumonia or pulmonary edema. X-ray is unchanged. Progress note dated 09/05/2020. 75-year-old female, admitted back on 08/22. Patient came into the hospital with a sternal wound infection, and developed worsening respiratory status, with heart failure, and reinaldo hypoxemic respiratory failure, requiring intubation on 08/25. At that time, she was discovered to have a sternal wound infection, secondary to staph aureus, and went to the operating room on 08/27, for debridement. Microbiology was positive for methicillin sensitive staph aureus. The patient had a two-vessel bypass grafting done on 08/10/2020, and was discharged home on 08/19. Currently, the patient remains on the ventilator. She is on the volume assist control mode, rate of 20, tidal volume 400, FiO2 40%, PEEP of 5. Arterial blood gases show a PaO2 of 150, PaCO2 35, pH is 7.49. The blood gases are consistent with hyperoxia, and a mild respiratory alkalosis. The patient will have a spontaneous breathing trial today, with a PSV of 80, and CPAP of 5. She's currently getting vital high protein at 54 mL an hour which is goal, and, D5.45, with 20 of potassium, at 20 mL an hour. She is on a small dose of norepinephrine, which is 0.04 g kilogram per minute, or 3.6 mcg /m. The patient is postop day #2, status post excision of sternal wound, with a right pectoralis major myocutaneous flap, and a left pectoralis major myocutaneous flap procedure. White blood count is 13.4, hemoglobin is only 5.4, hematocrit 17.2, and platelet count 313,000. She is currently getting blood. Sodium is 152, potassium 3.6, chlorides 120, carbon dioxide 26, anion gap 6, BUN 45, and creatinine 1.2. The IVs changed from D5 0.45, to just plain dextrose. Progress note dated 09/06/2020. 75-year-old female, admitted back on 08/22/2020. The patient initially came into the hospital with a sternal wound infection, with developing and worsening respiratory failure CHF, and profound hypoxemia. The patient required intubation and mechanical ventilation on 08/25/2020. At that time, he was discovered to have a sternal wound infection secondary to Staphylococcus aureus, and went to the operating room on 08/27/2020 for debridement. Microbiology was positive for methicillin sensitive staph aureus. The patient initially had a two-vessel bypass grafting, on 08/10/2020, and was discharged home 9 days later, on 08/19/2020. The patient remains on the ventilator, on the volume assist control mode, rate of 20, tidal volume 400, FiO2 40%, to be reduced down to 35%, and a PEEP of 5. Arterial blood gases show a PaO2 of 114, PaCO2 of 35, and a pH of 7.45. These blood gases consistent with a mild respiratory alkalosis, and mild hyperoxia. The patient is getting dextrose, at 20 mL an hour, saline at 10 mL an hour, of vital high protein at 54 mL an hour, which is goal, and she will be given a spontaneous breathing trial today on pressure support of 10, and CPAP of 5. Yesterday, on PSV 8, CPAP 5, she only lasted 5 minutes with her trial. In my opinion, unless the patient starts making significant progress, she likely will be a candidate for a tracheostomy and PEG tube procedure. Today's labs show a white count of 10.6, hemoglobin 8, hematocrit 25, and a platelet count of 276,000. Sodium is 150, potassium 3.6, chlorides 119, carbon dioxide 24, anion gap 7, BUN 42, and creatinine 1.03. Rest of the labs are reviewed. Chest x- rays shows cardiomegaly, with increased alveolar and interstitial edema and/or infiltrate laterally. Chest x-ray is unchanged. on 09/07/2020 the patient is being seen for a follow-up. The patient is off sedation and she is wide awake and following commands and answering questions appropriately while her being intubated on a mechanical ventilator. She is still profoundly weak. She can wiggle her toes and fingers. She is unable to raise her arms against gravity.. As such the patient is profoundly weak. She does have normal reflexes in all 4 extremities as such I think this is a myopathy rather than a underlying neuropathy processes underlying her weakness. There was a concern of epidural abscess/discitis. CAT scan of the cervical spine showed no evidence of any abnormalities and the patient was seen by neurology. EEG done earlier showed background slowing and moderate to severe degree of slowing suggestive of diffuse cerebral dysfunction/metabolic encephalopathy. No seizure activity was noted. The hardware and the cervical spine has been stable. No loosening.She was on a mechanical ventilator. Earlier this morning she was assist control mode at a tidal volume of 400 with a FiO2 of 35% with a PEEP of 5. I switched her to a pressure support of 8 and a PEEP of 5 with an FiO2 of 35%. Her med ventilation still elevated at 13.5 L per minute. She is able to generate a tidal volume of 3 80 mL and the respiratory rate is around 33. Despite her tachypnea, she states that she is breathing comfortably. Surgical wound site over the sternum is dry clean and intact. The patient has 3 separate RAHEEM drains and output is serosanguineous at this point in time. She has a fecal management system in place with output being minimal. The patient is receiving enteral feeding via a G-tube and she is on vital high protein at the rate of 54 mL an hour and the patient is also receiving free water supplements 400 mL every 4 hours. Her sodium level is down to 148. She is also on D5 water running at 20 mL an hour. She is afebrile. Antibiotic coverage has included a combination of cefepime and daptomycin. No fever. Most recent blood cultures From 09/01/2020 and 09/02/2020 and 09/03/2020 were all negative and a sputum culture from 09/04/2020 was also negative. The chest x- ray showing some bilateral pulmonary infiltrates.. The patient is awake. She has a adequate cough at this point in time. On today's evaluation of 09/08/2020, the patient is being seen in follow-up. The patient remains off sedation and she is wide awake. She is still weak and motor weakness is been an ongoing issue. She is moving her legs and she is able to raise her feet against gravity. She also is able to get as with her hands and she is able to move her hands rather than yesterday. Nevertheless, she is unable to raise her hands of the bed and she remains in significant amount of motor weakness. Yesterday, the patient was able to tolerate a total of 8 hours a pressure support mode of ventilation with a pressure support of 8 and a PEEP of 5. This morning, she is back on assist control mode at the rate of 20 with tidal volume of 400 and FiO2 of 35% with a PEEP of 5. The blood gases from today showed a pH of 7.48 with a pCO2 of 34 and pO2 of 98. Chest x-ray shows stable bilateral pulmonary infiltrates which is essentially unchanged compared to yesterday, probably slightly better. She does have a right sided PICC line and the findings of chest x-rays are essentially stable with stable diffuse patchy bilateral pulmonary infiltrates. ET tube remains in a good location. The patient has no significant orotracheal secretions. The white cell count at 10.0. No fever. Repeat blood cultures of been negative. The sodium level is improving and the sodium level is down to 145 and the patient is getting free water flushes 400 cc every 4 hours and she is also getting IV fluid in the form of D5W at the rate of 20 mL an hour. The patient has 3 separate RAHEEM drains and output remains serosanguineous. Output is minimal at this point in time. Her antibiotic coverage remains a combination of cefepime and daptomycin. As stated, the repeat blood cultures have been essentially negative and the patient is afebrile for now. The active issue for now is the profound weakness and the weaning process. The surgical wound site is covered with a wound VAC yet she has a fecal management system with minimal amount of output for now. Repeat 2020 patient is being seen for a follow-up. Yesterday, the patient was given a spelled his breathing trial with pressure support of 12 and a PEEP of 5. She'll assess for almost an hour and following that she became more restless and agitated and accordingly the patient was started on Precedex which is currently running at 0.3 mcg/kg/h. Subsequently she was switched back on assist control mode with tidal volume of 400 FiO2 of 35% with a PEEP of 5. She ena nued to have a higher minute ventilation and a high respiratory rate. Blood gases from this morning showed a pH of 7.50 with a pCO2 of 30 and pO2 of 78 and this is consistent with primary respiratory alkalosis. Chest x-ray findings are essentially stable. She has 3 different RAHEEM drains which are draining serosanguineous material. She also has a superficial wound VAC with minimal amount of output. No fever. No chills. White cell count is at 9. Hemoglobin stable at 7.4. Renal function stable with a creatinine of 0.8. Cardiac rhythm is sinus for now. Fluid balance +128 mL over the past 24 hours. She is afebrile. She remains on a combination of cefepime and daptomycin. Neurologically, she is awake, she is raising her legs against gravity. Motor function the arms is probably stable, if anything she is able to grasp her grasping ability is improving. She does have a weak cough. She is awake and alert and shortness of breath and she follows some simple commands although her responses not consistent. She is also receiving enteral feeding for nutritional support and she is currently on vital high protein at the rate of 50 mL an hour. On 09/10/2020 the patient is being seen for a follow-up. This morning the patient is sedated. She did have a quite often yesterday. After being off sedation for quite some time, the patient became restless, tachypneic with a high minute ventilation and she was breathing quite fast. She was having a high minute ventilation on assist control volume cycle mode of mechanical ventilation and she did the same on a pressure support mode of ventilation. Ultimately, she had to be sedated and currently she is on propofol running at 40 mcg/kg per minute. She is on a mechanical ventilator and her minute ventilation has dropped considerably and her minute ventilation this morning is down to 12 and she is able to generate a tidal volume of about 400 and the respiratory rate is in the high 20s. She is on AVC plus mode with a rate of 20 and a tidal volume of 400 with a FiO2 of 35% with a PEEP of 5. Inspiratory time is at 0.8 seconds and her I:E ratio is around 1-1.5. Her chest x-ray remains unchanged with bilateral pulmonary infiltrates. Orotracheal tube is in a good location. The patient has RAHEEM drains in place and output is also serosanguineous. She is afebrile. White cell count was at 12. No significant oral secretions. Repeat cultures of been all negative and she remains on the same antibiotic coverage which is a combination of cefepime and daptomycin. Balance over the past 24 hours is -250 mL. She has adequate urine output. Renal function is stable. Pro-calcitonin level was at 0.8. She is afebrile. Her T-max of 100.6 yesterday at around 8 PM yesterday. Hemoglobin today is at 7.4. Objective - Vital Signs Vital signs: Vital Signs Temp 98.8 F 09/10/20 04:00 Pulse 86 09/10/20 07:06 Resp 30 H 09/10/20 06:00 BP 115/58 09/10/20 06:00 Pulse Ox 98 09/10/20 06:00 Intake & Output 09/09/20 09/10/20 09/10/20 18:59 06:59 18:59 Intake Total 8530.465 8930.081 Output Total 2060 1580 Balance -491.586 291.081 Weight 89 kg 85.8 kg Intake: IV 476 356 Cefepime 2 gm In Sodium 100 100 Chloride 0.9% 100 ml @ 25 mls/hr IVPB Q12HR [facility] Rx #:[id number] DAPTOmycin 500 mg In 100 Sodium Chloride 0.9% 50 ml @ 100 mls/hr IVPB Q24HR [facility] Rx#:[id number] Dextrose 5% in Water 1, 240 220 000 ml @ 20 mls/hr IV . Q24H [facility] Rx#:[id number] Pressure Bag 36 36 Intake, IV Titration 98.414 267.081 Amount Dexmedetomidine/0.9% NaCl 62.764 (Pmx) 400 mcg In Empty Bag 1 bag @ Titrate IV . Q0M [facility] Rx#:[id number] Norepinephrine 8 mg In 35.650 117.081 Sodium Chloride 0.9% 250 ml @ 0.05 MCG/KG/MIN 8. 611 mls/hr IV .Q24H [facility] Rx#:[id number] propofoL 500 mg In Empty 150 Bag 1 bag @ Titrate IV . Q0M [facility] Rx#:[id number] Tube Feeding 594 648 Other 400 600 Output: Drainage 90 60 RAHEEM #1. 10 5 RAHEEM #2 70 50 RAHEEM #3 10 5 Urine 1870 1520 Stool 100 Other: Voiding Method Indwelling Catheter Indwelling Catheter ABP, PAP, CO, CI - Last Documented Arterial Blood Pressure 132/47 - Exam No acute distress, currently back on sedation and the patient is currently on propofol running at 40 mcg/kg per minute HEENT examination is grossly unremarkable. Mucous membranes are moist. There is an orally placed endotracheal tube, and an orally placed OG tube. Neck supple. Full range of motion. No adenopathy thyromegaly or neck vein distention. Cardiovascular examination reveals regular rhythm rate. S1-S2 normal. No S3 or S4. A soft systolic murmur is noted, grade 2/6. Lungs reveal scattered rhonchi and crackles. Breath sounds equal bilaterally. No wheezes are appreciated. Breath sounds are diminished throughout. Exam is unchanged.. The patient has a wound VAC over the sternum and the patient also has several RAHEEM drains within the chest with serosanguineous drainage at this point in time. Note that the patient has 3 different RAHEEM drains, one on each side and one central. Output is Abdomen soft, bowel sounds are heard. No masses or tenderness. Extremities are intact. No cyanosis or clubbing. Mild edema is noted throughout. The patient does have a right brachial arterial line, the patient has a PICC line in the right upper extremity and she also has a femoral line in her right groin. Skin reveals a dressing over the sternal wound infection.. The RAHEEM drains are all in place and output of serosanguineous at this point in time. Neurologic examination shows improved responsiveness. The patient does not her head yes or no when asked certain questions. She does have profound motor weakness in all 4 extremities and the patient has adequate reflexes in both extremities. No hyperreflexia. No hyperreflexia. The patient is awake off sedation she is following some simple commands. She opens her eyes spontaneously. She responds to simple commands. - Labs CBC & Chem 7: 09/10/20 04:10 09/10/20 04:10 Labs: Abnormal Lab Results - Last 24 Hours (Table) 09/09/20 09/09/20 09/09/20 Range/Units 11:22 14:00 17:27 WBC (3.8-10.6) k/uL RBC (3.80-5.40) m/uL Hgb (11.4-16.0) gm/dL Hct (34.0-46.0) % RDW (11.5-15.5) % Neutrophils # (1.3-7.7) k/uL ABG pH (7.35-7.45) ABG pCO2 (35-45) mmHg ABG Total CO2 (19-24) mmol/L ABG O2 Saturation (94-97) % BUN (7-17) mg/dL Glucose (74-99) mg/dL POC Glucose (mg/dL) 106 H 121 H (75-99) mg/dL Calcium (8.4-10.2) mg/dL AST (14-36) U/L Alkaline Phosphatase (38-126) U/L Albumin (3.5-5.0) g/dL Procalcitonin 0.83 H (0.02-0.09) ng/mL 09/09/20 09/10/20 09/10/20 Range/Units 23:30 04:10 04:10 WBC 12.5 H (3.8-10.6) k/uL RBC 2.56 L (3.80-5.40) m/uL Hgb 7.4 L (11.4-16.0) gm/dL Hct 23.5 L (34.0-46.0) % RDW 17.7 H (11.5-15.5) % Neutrophils # 8.0 H (1.3-7.7) k/uL ABG pH (7.35-7.45) ABG pCO2 (35-45) mmHg ABG Total CO2 (19-24) mmol/L ABG O2 Saturation (94-97) % BUN 34 H (7-17) mg/dL Glucose 123 H (74-99) mg/dL POC Glucose (mg/dL) 126 H (75-99) mg/dL Calcium 8.1 L (8.4-10.2) mg/dL AST 42 H (14-36) U/L Alkaline Phosphatase 183 H (38-126) U/L Albumin 2.4 L (3.5-5.0) g/dL Procalcitonin (0.02-0.09) ng/mL 09/10/20 09/10/20 Range/Units 04:52 06:17 WBC (3.8-10.6) k/uL RBC (3.80-5.40) m/uL Hgb (11.4-16.0) gm/dL Hct (34.0-46.0) % RDW (11.5-15.5) % Neutrophils # (1.3-7.7) k/uL ABG pH 7.48 H (7.35-7.45) ABG pCO2 34 L (35-45) mmHg ABG Total CO2 26 H (19-24) mmol/L ABG O2 Saturation 98.8 H (94-97) % BUN (7-17) mg/dL Glucose (74-99) mg/dL POC Glucose (mg/dL) 121 H (75-99) mg/dL Calcium (8.4-10.2) mg/dL AST (14-36) U/L Alkaline Phosphatase (38-126) U/L Albumin (3.5-5.0) g/dL Procalcitonin (0.02-0.09) ng/mL Microbiology - Last 24 Hours (Table) 09/03/20 18:02 Blood Culture - Final Blood No Growth after 144 hours 09/08/20 Unknown Catheter Tip Culture - Preliminary Catheter Tip 09/07/20 09:27 Blood Culture - Preliminary Blood No Growth after 48 hours Assessment and Plan Plan: 1 Acute hypoxemic and hypercapnic respiratory failure, secondary to incisional wound infection, with methicillin sensitive staph aureus, as well as pneumonia, and bilateral pleural effusions. The follow-up cultures as of 09/02/2020 were all negative and the patient remains on a combination of cefepime and daptomycin for now. Chest x-ray findings are stable with bilateral pulmonary infiltrates and interstitial infiltrates and small effusions. His chest x-ray from today is essentially stable. The patient patient was quite agitated yesterday and the patient was recently treated with propofol. Currently she is on a volume cycle mode of ventilation and her blood gases was noted and the chest x-ray was noted which is showing stable bilateral pulmonary infiltrates.. The patient continues to be diuresed with Lasix at a dose of 40 mg IV push every 12 hours. Still covered with broad-spectrum antibiotics with a combination of cefepime and daptomycin 2 Postop day #6, status post excision of sternal wound, right pectoralis major myocutaneous flap, and left pectoralis major myocutaneous flap. Output is serosanguineous 3 Status post readmission on August 22, and intubation for respiratory failure on 08/25/2020 and the patient continues to be intubated for now. 4 Sepsis, secondary to sternal wound infection, caused by methicillin sensitive staph aureus, with bacteremia. Repeat cultures are all negative and the patient remains on adequate antibiotic coverage for now. the patient had a low-grade fever yesterday which recovered and currently is afebrile 5 Septic shock, secondary to sternal wound infection. The patient is currently on no pressors 6 Acute kidney injury, requiring a brief period of hemodialysis. Creatinine today is within normal limits 7 Acute metabolic acidosis, secondary to acute kidney injury. 8 Acute diastolic CHF with bilateral pleural effusions. 9 History of hypertension. 10 History of cervical stenosis. 11 Primary history of tobacco use. 12 Mild pulmonary fibrosis/interstitial lung disease. 13 Status post sternal exploration with sternal debridement, August 27. 14 Recent prior history of two-vessel bypass grafting, on August 10, with discharge on August 19. 15 Hypernatremia, recovered and the patient's sodium level has normalized. Plan: Continue propofol for now CAT scan of the brain, no contrast and also had a CAT scan of the chest, noncontrast evaluating the pulmonary effusions/infiltrates The sedation holiday and the patient will be taken off the propofol again in her overall pulmonary status and mental status will be reevaluated while off sedation Continue enteral feeding for nutritional support continue cefepime and daptomycin Surgical follow-up on the wound and the RAHEEM drains Monitor the output through the wound VAC which is minimal at this point and possibly remove the external wound VAC today We'll continue following this patient with aggressive the consultants. Critical care evaluation that was done and more bertha 30 minutes
--- NOTE | 2020-09-10 08:15 | P.PN ---
Subjective HPI: This is a 75-year-old female past medical history significant for hypertension, hyperlipidema, pulmonary fibrosis, asthma, obesity, former smoker with smoking 32 years ago, osteoarthritis, cervical stenosis post anterior cervical decompression, discectomy and fusion, TIA as child at age 11. Over the past 6 months patient was episodes of shortness of breath and lower extremity edema. She underwent a stress test which showed anterior wall ischemia with small reversible defect. a 2-D echocardiogram which showed mild aortic valve insufficiency, mild mitral valve regurgitation, mild tricuspid valve regurgitation and left ventricular function to be normal with an ejection fraction of 55%. Subsequently she underwent an elective heart catheterization on 07/27/2020 which demonstrated a left main stenosis, a 40% stenosis to her mid left anterior descending coronary artery and a 30% stenosis to her right coronary artery. Due to the patient's symptoms and findings on her heart catheterization of left main stenosis a consult was placed to Dr. Sethi from cardiothoracic surgery for further evaluation and treatment recommendations.She was admitted to the hospital from 08/06/20-08/19/20 for hyponatremia and underwent double vessel coronary artery bypass graft on 08/10/2020. She is now readmitted on 08/22/20 with respiratory failure, evidence of pneumonia, and evidence of pneumonia and dehiscense of her sternal wound. tr ansferred to ICU on 08/24. On 08/25, patient had an episode of Afib with RVR intermittently and her dose of lopressor was increaed to 25mg every 8 hours. On 08/26, patient was intubated and placed on mechanical ventilation overnight and did have atrial flutter alternating with sinus rhythm. On 08/27 she underwent debridement. 09/03 patient underwent excision of sternal wound, partial sternotomy with placement of a pectoralis flap. 09/09/2020 Patient seen and examined. Patient remains on ventilator with a FiO2 40%, PEEP of 5 with a spontaneous breathing trial. Patient is still tachypnic and very weak with inability to move her upper extremities and neck much. Her sodium has improved to 141 today. She has good urine output with the Lasix however then urine output tapers off. She is up approximately 100 mL or last 24 hours. 09/10/2020 Patient seen and examined. Patient still remains very weak. Patient has not been passing her spontaneous breathing trials. She was placed on a low-dose of norepinephrine. Lasix was increased to twice a day yesterday and sodium this morning has remained stable at 138. Hemoglobin remains stable at 7.4, mild increase in white blood cell count 12.5. PHYSICAL EXAMINATION GEN: Patient in ICU bed, appears comfortable, anxious, on vent HEENT: Patient intubated and on mechanical ventilation CHEST EXAMINATION: Lungs are diminished to auscultation anteriorly . HEART EXAMINATION: Regular rate and rhythm. S1, S2 heard. No murmurs, gallops or rub. ABDOMEN: Soft, Positive bowel sounds. EXTREMITIES: 3+ edema in bilateral hands R >L, 2+ bilateral pitting edema lower extremities. NEUROLOGIC EXAMINATION: Patient is somnolent, unresponsive, eyes open ASSESSMENT Acute hypoxemica Respiratory failure s/p coronary artery bypass grafting Acute on chronic diastolic heart failure- EF 55%, mild aortic regurgitation, mild mitral regurgitation, mild tricuspid regurgitation Wound dehiscense s/p debridement and excision and placement of pectoralis muscle flap Acute Kidney Injury- renal function now back to baseline Hypernatremia - improved Coronary artery disease- s/p CABG performed on 08/10/20 Sepsis with septic shock, with MSSA bacteremia with sternal wound dehiscence s/p sternal exploration, sternal debridement on 08/27. s/p Exicion of sternal wound, partial sternotomy, pectoralis flap on 09/03 Acute blood loss anemia- s/p 2 unit on 09/05/20 History of Hypertension- currently hypotensive History of Hyperlipidemia Altered mental status, extreme weakness, questionable ICU myopathy, ICU delirium versus other Hypotension, suspect mainly related to sedation plus or minus component of sepsis PLAN -Continue dual-antiplatelet therapy aspirin daily, Plavix daily -Continue beta sisi: Toprol 75mg BID as tolerated. -Patient with good response to twice a day dosing of Lasix however still appears neutral for ins and outs. Majority of anasarca likely related to protein attrition. Continue supportive care. Continue with low-dose vasopressors as needed. Objective - Vital Signs Vital signs: Vital Signs Temp 98.8 F 09/10/20 04:00 Pulse 111 H 09/10/20 07:18 Resp 34 H 09/10/20 07:00 BP 124/62 09/10/20 07:00 Pulse Ox 98 09/10/20 07:00 Intake & Output 09/09/20 09/10/20 09/10/20 18:59 06:59 18:59 Intake Total 7418.632 0401.081 77 Output Total 2060 1580 70 Balance -491.586 291.081 7 Weight 89 kg 85.8 kg Intake: IV 476 356 23 Cefepime 2 gm In Sodium 100 100 Chloride 0.9% 100 ml @ 25 mls/hr IVPB Q12HR [facility] Rx #:[id number] DAPTOmycin 500 mg In 100 Sodium Chloride 0.9% 50 ml @ 100 mls/hr IVPB Q24HR [facility] Rx#:[id number] Dextrose 5% in Water 1, 240 220 20 000 ml @ 20 mls/hr IV . Q24H [facility] Rx#:[id number] Pressure Bag 36 36 3 Intake, IV Titration 98.414 267.081 Amount Dexmedetomidine/0.9% NaCl 62.764 (Pmx) 400 mcg In Empty Bag 1 bag @ Titrate IV . Q0M [facility] Rx#:[id number] Norepinephrine 8 mg In 35.650 117.081 Sodium Chloride 0.9% 250 ml @ 0.05 MCG/KG/MIN 8. 611 mls/hr IV .Q24H [facility] Rx#:[id number] propofoL 500 mg In Empty 150 Bag 1 bag @ Titrate IV . Q0M [facility] Rx#:[id number] Tube Feeding 594 648 54 Other 400 600 Output: Drainage 90 60 RAHEEM #1. 10 5 RAHEEM #2 70 50 RAHEEM #3 10 5 Urine 1870 1520 70 Stool 100 Other: Voiding Method Indwelling Catheter Indwelling Catheter ABP, PAP, CO, CI - Last Documented Arterial Blood Pressure 112/46 - Labs CBC & Chem 7: 09/10/20 04:10 09/10/20 04:10 Labs: Abnormal Lab Results - Last 24 Hours (Table) 09/09/20 09/09/20 09/09/20 Range/Units 11:22 14:00 17:27 WBC (3.8-10.6) k/uL RBC (3.80-5.40) m/uL Hgb (11.4-16.0) gm/dL Hct (34.0-46.0) % RDW (11.5-15.5) % Neutrophils # (1.3-7.7) k/uL ABG pH (7.35-7.45) ABG pCO2 (35-45) mmHg ABG Total CO2 (19-24) mmol/L ABG O2 Saturation (94-97) % BUN (7-17) mg/dL Glucose (74-99) mg/dL POC Glucose (mg/dL) 106 H 121 H (75-99) mg/dL Calcium (8.4-10.2) mg/dL AST (14-36) U/L Alkaline Phosphatase (38-126) U/L Albumin (3.5-5.0) g/dL Procalcitonin 0.83 H (0.02-0.09) ng/mL 09/09/20 09/10/20 09/10/20 Range/Units 23:30 04:10 04:10 WBC 12.5 H (3.8-10.6) k/uL RBC 2.56 L (3.80-5.40) m/uL Hgb 7.4 L (11.4-16.0) gm/dL Hct 23.5 L (34.0-46.0) % RDW 17.7 H (11.5-15.5) % Neutrophils # 8.0 H (1.3-7.7) k/uL ABG pH (7.35-7.45) ABG pCO2 (35-45) mmHg ABG Total CO2 (19-24) mmol/L ABG O2 Saturation (94-97) % BUN 34 H (7-17) mg/dL Glucose 123 H (74-99) mg/dL POC Glucose (mg/dL) 126 H (75-99) mg/dL Calcium 8.1 L (8.4-10.2) mg/dL AST 42 H (14-36) U/L Alkaline Phosphatase 183 H (38-126) U/L Albumin 2.4 L (3.5-5.0) g/dL Procalcitonin (0.02-0.09) ng/mL 09/10/20 09/10/20 Range/Units 04:52 06:17 WBC (3.8-10.6) k/uL RBC (3.80-5.40) m/uL Hgb (11.4-16.0) gm/dL Hct (34.0-46.0) % RDW (11.5-15.5) % Neutrophils # (1.3-7.7) k/uL ABG pH 7.48 H (7.35-7.45) ABG pCO2 34 L (35-45) mmHg ABG Total CO2 26 H (19-24) mmol/L ABG O2 Saturation 98.8 H (94-97) % BUN (7-17) mg/dL Glucose (74-99) mg/dL POC Glucose (mg/dL) 121 H (75-99) mg/dL Calcium (8.4-10.2) mg/dL AST (14-36) U/L Alkaline Phosphatase (38-126) U/L Albumin (3.5-5.0) g/dL Procalcitonin (0.02-0.09) ng/mL Microbiology - Last 24 Hours (Table) 09/03/20 18:02 Blood Culture - Final Blood No Growth after 144 hours 09/08/20 Unknown Catheter Tip Culture - Preliminary Catheter Tip 09/07/20 09:27 Blood Culture - Preliminary Blood No Growth after 48 hours
[2020-09-10] MEDS: CHLORHEXIDINE GLUCONATE 15 ML CUP MUCOUS MEM SCH ×2 (09:05→20:40)
[2020-09-10] MEDS: METOPROLOL TARTRATE 50 MG TAB PO SCH ×2 (09:05→20:39)
[2020-09-10] MEDS: PANTOPRAZOLE 40 MG/10 ML VIAL IVP SCH (09:06)
[2020-09-10] MEDS: FUROSEMIDE 10 MG/ML 4 ML VIAL IV SCH ×2 (09:06→20:38)
[2020-09-10] MEDS: CLOPIDOGREL 75 MG TAB PO SCH (09:06)
[2020-09-10] MEDS: HEPARIN SODIUM,PORCINE 5,000 UNIT/ML 1 ML VIAL SQ SCH ×3 (09:06→23:54)
[2020-09-10] MEDS: ASPIRIN 325 MG TAB PO SCH (09:06)
[2020-09-10] MEDS: DAPTOmycin 500 MG in SODIUM CHLORIDE 0.9% 50 ML IVPB SCH (09:06)
[2020-09-10] MEDS: CEFEPIME 2 GM in SODIUM CHLORIDE 0.9% 100 ML IVPB SCH ×2 (09:07→20:40)
[2020-09-10] MEDS: DRY MOUTH SPRAY 44.3 SPRAY/44.3 ML SPRAY MUCOUS MEM SCH ×4 (09:18→23:53)
[2020-09-10] MEDS: DEXTROSE 5% IN WATER 1,000 ML IV SCH (09:18)
--- NOTE | 2020-09-10 09:18 | P.PN ---
Subjective Progress Note Date: 09/10/20 Principal diagnosis: Shortness of breath, acute diastolic heart failure, bilateral pleural effusion, lactic acidosis, hypercapnic respiratory failure requiring BiPAP followed by sc chanical ventilation, deep sternal wound infection with MSSA, acute kidney injury, acute hyperkalemia, hyponatremia, acute transaminitis, hypotension requiring vasopressors use, acute anemia. Past medical history significant for coronary artery disease with left main stenosis status post 2 vessel CABG on 08/10/2020 with expected postoperative acute blood loss anemia, hypotension, and urinary retention as well as candidal stomatititus, hyponatremia, pulmonary fibrosis, asthma, hypertension, hyperlipidemia, previous tobacco dependence, obesity, osteoarthritis, cervical stenosis post anterior cervical disc decompression, discectomy and fusion, TIA as a child, family history of premature coronary artery disease. Paroxysmal Afib with RVR. POD #13 sternal exploration with sternal debridement. POD #6 removal of table and partial resection of the manubrium as well as partial sternectomy by Dr. Sethi, right pectoralis major myocutaneous flap, left pectoralis major myocutaneous flap by Dr. Whittaker. The patient was seen in follow-up today 09/10/2020 at her bedside in the intensive care unit. Currently she remains intubated with mechanical ventilator support and is sedated on propofol drip at 40 mcg/kg/m. Current mechanical ventilator settings are assist control 20, VC +400/0.80, FiO2 35% and a PEEP of 5. Oxygen saturations on current mechanical ventilator settings 98%. Arterial blood gas results this morning show a pH of 7.48, pCO2 34, pO2 96, HCO3 25, oxygen saturation 98.8 and base excess 1.5. She is not following any verbal commands at this time due to the sedation. Bedside telemetry is showing sinus tachycardia heart rate 111 BPM. Her T-max temperature in the last 24 hours was 100.6F. She remains on daptomycin and cefepime for antibiotic coverage, which is being managed by infectious disease. OG tube with vital AF at all rate of 54 mL per hour with automatic water flushes 200 mL every 4 hours. Laboratory results this morning show a WBC count 12.5, hemoglobin 7.4, hematocrit 23.5, platelets 403, sodium 138, potassium 3.5, BUN 34, creatinine 0.81, AST 42 and ALT 31. Pro-calcitonin level was completed yesterday which was 0.83. She was trialed on a CPAP trial yesterday for 4 hours and was subsequently changed back to an assist control mode due to her elevated respiratory rate in the 30s to 40s. Subsequently, she was placed on propofol drip for sedation and also was started on norepinephrine drip for blood pressure support. The norepinephrine drip is currently running at 0.05 mcg/kg/m. Prevena dressing remains in place to her sternal incision, Clean, dry and intact. 3 RAHEEM drains remain in place to her chest with scant serosanguineous drainage. Fecal management system remains in place with liquid brown stool. Yu catheter remains in place for accurate I's and O's with 995 mL of clear yellow urine in the last 8 hours. Objective - Vital Signs Vital signs: Vital Signs Temp 98.8 F 09/10/20 04:00 Pulse 111 H 09/10/20 07:18 Resp 34 H 09/10/20 07:00 BP 124/62 09/10/20 07:00 Pulse Ox 98 09/10/20 07:00 Intake & Output 09/09/20 09/10/20 09/10/20 18:59 06:59 18:59 Intake Total 2752.063 0956.081 77 Output Total 2060 1580 70 Balance -491.586 291.081 7 Weight 89 kg 85.8 kg Intake: IV 476 356 23 Cefepime 2 gm In Sodium 100 100 Chloride 0.9% 100 ml @ 25 mls/hr IVPB Q12HR [facility] Rx #:[id number] DAPTOmycin 500 mg In 100 Sodium Chloride 0.9% 50 ml @ 100 mls/hr IVPB Q24HR [facility] Rx#:[id number] Dextrose 5% in Water 1, 240 220 20 000 ml @ 20 mls/hr IV . Q24H [facility] Rx#:[id number] Pressure Bag 36 36 3 Intake, IV Titration 98.414 267.081 Amount Dexmedetomidine/0.9% NaCl 62.764 (Pmx) 400 mcg In Empty Bag 1 bag @ Titrate IV . Q0M [facility] Rx#:[id number] Norepinephrine 8 mg In 35.650 117.081 Sodium Chloride 0.9% 250 ml @ 0.05 MCG/KG/MIN 8. 611 mls/hr IV .Q24H [facility] Rx#:[id number] propofoL 500 mg In Empty 150 Bag 1 bag @ Titrate IV . Q0M [facility] Rx#:[id number] Tube Feeding 594 648 54 Other 400 600 Output: Drainage 90 60 RAHEEM #1. 10 5 RAHEEM #2 70 50 RAHEEM #3 10 5 Urine 1870 1520 70 Stool 100 Other: Voiding Method Indwelling Catheter Indwelling Catheter ABP, PAP, CO, CI - Last Documented Arterial Blood Pressure 112/46 - Constitutional Constitutional Comment(s): This 75-year-old female patient who is currently sedated on propofol drip, remains intubated with mechanical ventilator support. Is not following any verbal commands at this time as she is sedated. General appearance: Present: no acute distress - EENT Eyes: Present: PERRLA, normal appearance. Absent: scleral icterus - Neck Details: Neck is supple, no JVD, no lymphadenopathy. - Respiratory Details: Lung sounds with coarse rhonchi throughout, diminished to her bilateral bases. Respirations are symmetrical and nonlabored with mechanical ventilator support. Current mechanical ventilator set are as follows, assist-control 20, VC +450/0.80, FiO2 35% and a PEEP of 5. Oxygen saturation on current mechanical ventilator settings 98%. ABG results this morning show a pH 7.48, pCO2 34, pO2 96, HCO3 25, oxygen saturation 98.8 and a base excess 1.5. - Cardiovascular Details: Regular rhythm and tachycardic rate. S1 and S2 present, negative for S3, gallop or murmur. Generalized +1 edema. Heart hugger is in place. Prevena dressing clean, dry and intact to her sternal incision. Knee-high ANGEL hose and sequential compression devices in place to her bilateral lower extremities. Norepinephrine drip at 0.05 mcg/kg/m for blood pressure support. - Gastrointestinal Gastrointestinal Comment(s): Abdomen is soft, and nondistended. Active bowel sounds present in all 4 abdominal quadrants. No guarding or rigidity. No organomegaly appreciated. Fecal management system in place draining liquid brown stool. OG tube in place with continuous tube feeding vital AF at goal rate of 54 mL per hour with automatic water flushes 200 mL every 4 hours. - Genitourinary Genitourinary Comment(s): Yu catheter for accurate I&O. Draining clear yellow urine. 995 mL output in the last 8 hours. - Neurologic Neurologic Comment(s): Unable to accurately assess at this time as the patient is sedated on propofol drip at 40 mcg/kg/m. - Musculoskeletal Musculoskeletal Comment(s): Unable to accurately assess at this time as the patient is sedated on propofol drip at 40 mcg/kg/m. - Psychiatric Psychiatric Comment(s): Unable to accurately assess at this time as the patient is sedated on propofol drip at 40 mcg/kg/m. - Allied health notes Allied health notes reviewed: nursing - Labs CBC & Chem 7: 09/10/20 04:10 09/10/20 04:10 Labs: Abnormal Lab Results - Last 24 Hours (Table) 09/09/20 09/09/20 09/09/20 Range/Units 11:22 14:00 17:27 WBC (3.8-10.6) k/uL RBC (3.80-5.40) m/uL Hgb (11.4-16.0) gm/dL Hct (34.0-46.0) % RDW (11.5-15.5) % Neutrophils # (1.3-7.7) k/uL ABG pH (7.35-7.45) ABG pCO2 (35-45) mmHg ABG Total CO2 (19-24) mmol/L ABG O2 Saturation (94-97) % BUN (7-17) mg/dL Glucose (74-99) mg/dL POC Glucose (mg/dL) 106 H 121 H (75-99) mg/dL Calcium (8.4-10.2) mg/dL AST (14-36) U/L Alkaline Phosphatase (38-126) U/L Albumin (3.5-5.0) g/dL Procalcitonin 0.83 H (0.02-0.09) ng/mL 09/09/20 09/10/20 09/10/20 Range/Units 23:30 04:10 04:10 WBC 12.5 H (3.8-10.6) k/uL RBC 2.56 L (3.80-5.40) m/uL Hgb 7.4 L (11.4-16.0) gm/dL Hct 23.5 L (34.0-46.0) % RDW 17.7 H (11.5-15.5) % Neutrophils # 8.0 H (1.3-7.7) k/uL ABG pH (7.35-7.45) ABG pCO2 (35-45) mmHg ABG Total CO2 (19-24) mmol/L ABG O2 Saturation (94-97) % BUN 34 H (7-17) mg/dL Glucose 123 H (74-99) mg/dL POC Glucose (mg/dL) 126 H (75-99) mg/dL Calcium 8.1 L (8.4-10.2) mg/dL AST 42 H (14-36) U/L Alkaline Phosphatase 183 H (38-126) U/L Albumin 2.4 L (3.5-5.0) g/dL Procalcitonin (0.02-0.09) ng/mL 09/10/20 09/10/20 Range/Units 04:52 06:17 WBC (3.8-10.6) k/uL RBC (3.80-5.40) m/uL Hgb (11.4-16.0) gm/dL Hct (34.0-46.0) % RDW (11.5-15.5) % Neutrophils # (1.3-7.7) k/uL ABG pH 7.48 H (7.35-7.45) ABG pCO2 34 L (35-45) mmHg ABG Total CO2 26 H (19-24) mmol/L ABG O2 Saturation 98.8 H (94-97) % BUN (7-17) mg/dL Glucose (74-99) mg/dL POC Glucose (mg/dL) 121 H (75-99) mg/dL Calcium (8.4-10.2) mg/dL AST (14-36) U/L Alkaline Phosphatase (38-126) U/L Albumin (3.5-5.0) g/dL Procalcitonin (0.02-0.09) ng/mL Microbiology - Last 24 Hours (Table) 09/03/20 18:02 Blood Culture - Final Blood No Growth after 144 hours 09/08/20 Unknown Catheter Tip Culture - Preliminary Catheter Tip 09/07/20 09:27 Blood Culture - Preliminary Blood No Growth after 48 hours - Imaging and Cardiology Chest x-ray: report reviewed, image reviewed Assessment and Plan Assessment: 1. Shortness of breath, acute diastolic heart failure, EF 55-60% on current TTE, bilateral pleural effusions 2. Lactic acidosis, septic shock, blood cultures positive for MSSA 3. Hypercapnic, hypoxic respiratory failure requiring BiPAP, with subsequent intubation and mechanical ventilation 4. Open sternal wound, surgically created, deep sternal wound infection with MSSA, S/P surgical exploration and debridement with daily dressing changes 5. Leukocytosis with bandemia, bandemia , WBC trending down 6. Acute kidney injury, metabolic acidosis, metabolic acidosis resolved, kidney function returning to normal after receiving dialysis 7. Acute hyperkalemia, resolved 8. Acute transaminitis secondary to hypoperfusion, resolved 9. History of hypertension, hypotensive this admission requiring vasopressors, currently off vasopressors 10. Acute anemia, post transfusion PRBCs, on 11. Coronary artery disease with left main stenosis status post 2 vessel CABG on 08/10/2020 with expected postoperative acute blood loss anemia, hypotension, and urinary retention as well as candidal stomatititus 12. Hyponatremia, resolved 13. Pulmonary fibrosis, asthma 14. Hyperlipidemia, treated 15. Previous tobacco dependence 16. Obesity 17. Paroxysmal afib w/ RVR, atrial flutter, status post exclusion of the left atrial appendage using a 35 mm AtriClip, currently sinus rhythm 18. 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 Ventilator management per pulmonary medicine. Noncontrasted Computed tomography scan of her chest ordered today to evaluate pulmonary effusions/infiltrates. 2. Nephrology following, avoid nephrotoxins, diuretic management per nephrology recommendations. Lasix was increased to 40 mg IV twice a day. 3. Infectious disease following, blood cultures from 09/01/2020, 09/02/2020, and 09/07/2020 currently show no growth. Sputum culture from 09/04/2020 final result shows no growth. Central catheter tip from the right femoral shows no growth after 24 hours. Remains on antibiotic coverage of cefepime and daptomycin. Previous blood, sputum and sternal wound cultures showed positive for MSSA. T-max temperature in the last 24 hours is 100.6F. 4. Continue aspirin, Plavix, , statin and beta sisi. We will increase metoprolol tartrate as tolerated. currently on metoprolol tartrate 50 mg by mout h twice a day. 5. No anticoagulation at this time. 6. Will continue to monitor daily labs, chest x-rays, and ABGs. 7. 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 Currently sedated on propofol drip at 40 mcg/kg/m. Per pulmonary/critical care management she will be given a sedation holiday today. 8. GI/DVT prophylaxis. 9. Continue tube feeding for nutrition, per dietitian recommendations. Currently at goal rate of 54 mL per hour vital high-AF with automatic water flushes 200 mL every 4 hours. 10. Patient's daughter Roberta updated on her care per phone. 11. Replace electrolytes per protocol. 12. Remove Prevena dressing to her sternal incision today. Continue to monitor RAHEEM drains. 13. Continue to follow culture results. 14. Surgical pathology results showed bone and soft tissue, sternum, debridement: Bone with focal features compatible with acute osteomyelitis. Attached fibrous soft tissue with abundant acute and chronic inflammation. Negative for granulomatous inflammation or malignancy 15. More recommendations to follow based on patient's clinical course. Time with Patient: Greater than 30
--- NOTE | 2020-09-10 10:10 | XR ---
EXAMINATION TYPE: XR chest 1V portable DATE OF EXAM: 09/10/2020 COMPARISON: Prior chest x-ray 09/09/2020 HISTORY: Postop coronary artery bypass graft TECHNIQUE: Single frontal view of the chest is obtained. FINDINGS: Endotracheal tube, NG tube, bilateral chest drains, midline drain, post median sternotomy change with left atrial appendage clip placement are essentially stable. Bilateral airspace disease a nd prominent interstitium persists. There is no evident pneumothorax or sizable effusion. Right-sided PICC line is stable. Postop changes in the cervical spine. Patient is rotated, question some promine nce of the pulmonary artery. IMPRESSION: Essentially stable exam.
--- NOTE | 2020-09-10 10:51 | P.PN ---
Subjective Patient is seen in follow-up for acute kidney injury. Renal function back to baseline. Nonoliguric. Maintained on IV Lasix. Also receiving tube feeding. Currently on 35% FiO2. Difficult to wean. She is now on Levophed. Vital signs: Stable. On vasopressor support. HEENT: Intubated. LUNGS: Breath sounds decreased. HEART: Regular rhythm. ABDOMEN: Soft, no distention noted. EXTREMITITES: Trace edema. Objective - Vital Signs Vital signs: Vital Signs Temp 99.4 F 09/10/20 08:00 Pulse 108 H 09/10/20 10:00 Resp 32 H 09/10/20 10:00 BP 121/60 09/10/20 10:00 Pulse Ox 100 09/10/20 10:00 Intake & Output 09/09/20 09/10/20 09/10/20 18:59 06:59 18:59 Intake Total 9972.830 9881.081 774.928 Output Total 2060 1580 520 Balance -491.586 291.081 254.928 Weight 89 kg 85.8 kg 85.8 kg Intake: IV 476 356 292 Cefepime 2 gm In Sodium 100 100 100 Chloride 0.9% 100 ml @ 25 mls/hr IVPB Q12HR [facility] Rx #:[id number] DAPTOmycin 500 mg In 100 100 Sodium Chloride 0.9% 50 ml @ 100 mls/hr IVPB Q24HR [facility] Rx#:[id number] Dextrose 5% in Water 1, 240 220 80 000 ml @ 20 mls/hr IV . Q24H [facility] Rx#:[id number] Pressure Bag 36 36 12 Intake, IV Titration 98.414 267.081 66.928 Amount Dexmedetomidine/0.9% NaCl 62.764 (Pmx) 400 mcg In Empty Bag 1 bag @ Titrate IV . Q0M [facility] Rx#:[id number] Norepinephrine 8 mg In 35.650 117.081 Sodium Chloride 0.9% 250 ml @ 0.05 MCG/KG/MIN 8. 611 mls/hr IV .Q24H [facility] Rx#:[id number] propofoL 1,000 mg In 66.928 Empty Bag 1 bag @ Titrate IV .Q0M [facility] Rx#: [id number] propofoL 500 mg In Empty 150 Bag 1 bag @ Titrate IV . Q0M [facility] Rx#:[id number] Tube Feeding 594 648 216 Other 400 600 200 Output: Drainage 90 60 RAHEEM #1. 10 5 RAHEEM #2 70 50 RAHEEM #3 10 5 Urine 1870 1520 520 Stool 100 Other: Voiding Method Indwelling Catheter Indwelling Catheter Indwelling Catheter ABP, PAP, CO, CI - Last Documented Arterial Blood Pressure 119/54 - Labs CBC & Chem 7: 09/10/20 04:10 09/10/20 04:10 Labs: Abnormal Lab Results - Last 24 Hours (Table) 09/09/20 09/09/20 09/09/20 Range/Units 11:22 14:00 17:27 WBC (3.8-10.6) k/uL RBC (3.80-5.40) m/uL Hgb (11.4-16.0) gm/dL Hct (34.0-46.0) % RDW (11.5-15.5) % Neutrophils # (1.3-7.7) k/uL ABG pH (7.35-7.45) ABG pCO2 (35-45) mmHg ABG Total CO2 (19-24) mmol/L ABG O2 Saturation (94-97) % BUN (7-17) mg/dL Glucose (74-99) mg/dL POC Glucose (mg/dL) 106 H 121 H (75-99) mg/dL Calcium (8.4-10.2) mg/dL AST (14-36) U/L Alkaline Phosphatase (38-126) U/L Albumin (3.5-5.0) g/dL Procalcitonin 0.83 H (0.02-0.09) ng/mL 09/09/20 09/10/20 09/10/20 Range/Units 23:30 04:10 04:10 WBC 12.5 H (3.8-10.6) k/uL RBC 2.56 L (3.80-5.40) m/uL Hgb 7.4 L (11.4-16.0) gm/dL Hct 23.5 L (34.0-46.0) % RDW 17.7 H (11.5-15.5) % Neutrophils # 8.0 H (1.3-7.7) k/uL ABG pH (7.35-7.45) ABG pCO2 (35-45) mmHg ABG Total CO2 (19-24) mmol/L ABG O2 Saturation (94-97) % BUN 34 H (7-17) mg/dL Glucose 123 H (74-99) mg/dL POC Glucose (mg/dL) 126 H (75-99) mg/dL Calcium 8.1 L (8.4-10.2) mg/dL AST 42 H (14-36) U/L Alkaline Phosphatase 183 H (38-126) U/L Albumin 2.4 L (3.5-5.0) g/dL Procalcitonin (0.02-0.09) ng/mL 09/10/20 09/10/20 Range/Units 04:52 06:17 WBC (3.8-10.6) k/uL RBC (3.80-5.40) m/uL Hgb (11.4-16.0) gm/dL Hct (34.0-46.0) % RDW (11.5-15.5) % Neutrophils # (1.3-7.7) k/uL ABG pH 7.48 H (7.35-7.45) ABG pCO2 34 L (35-45) mmHg ABG Total CO2 26 H (19-24) mmol/L ABG O2 Saturation 98.8 H (94-97) % BUN (7-17) mg/dL Glucose (74-99) mg/dL POC Glucose (mg/dL) 121 H (75-99) mg/dL Calcium (8.4-10.2) mg/dL AST (14-36) U/L Alkaline Phosphatase (38-126) U/L Albumin (3.5-5.0) g/dL Procalcitonin (0.02-0.09) ng/mL Microbiology - Last 24 Hours (Table) 09/03/20 18:02 Blood Culture - Final Blood No Growth after 144 hours 09/08/20 Unknown Catheter Tip Culture - Preliminary Catheter Tip 09/07/20 09:27 Blood Culture - Preliminary Blood No Growth after 48 hours Assessment and Plan Plan: Assessment: 1. Acute kidney injury secondary to ATN secondary to hypotension/sepsis on admission and then from nafcillin. Baseline creatinine near 1. She did require hemodialysis earlier this admission has subsequently recovered kidney function. Creatinine 0.81 today. 2. Volume overload. Improving with diuresis. 3. Hypernatremia from lack of oral water intake. Improving. 4. Wound dehiscence of the sternum with MSSA bacteremia. On antibiotics. Also underwent sternal debridement this admission. 5. Acute hypoxia respiratory failure. Currently on 35% FiO2. 6. Status post CABG in 08/10/2020. 7. Acute blood loss anemia requiring multiple blood transfusions this admission. Also on Aranesp. 8. Hypokalemia from diuresis. Being replaced. Plan: Maintain IV Lasix. Maintain tube feeding with free water flushes - decrease of flushes to 200 mL every 6 hours. Continue to monitor renal function and urine output. Wean FiO2. Potassium was replaced.
[2020-09-10] MEDS: FERROUS SULFATE ORAL ELIXIR 300 MG/5 ML CUP PO SCH (11:41)
[2020-09-10] MEDS: ASCORBIC ACID 500 MG TAB PO SCH (11:41)
[2020-09-10 11:49] LABS: Glucose,Whole Blood 136 mg/dL (75-99)
--- NOTE | 2020-09-10 12:13 | P.PN ---
Subjective Progress Note Date: 09/10/20 HISTORY OF PRESENT ILLNESS This is a 75-year-old female patient of Dr. Rich Avila, Dr. Sloan and Dr. Guadalupe. She has a past medical history significant for hypertension, hype rlipidemia, pulmonary fibrosis, asthma, obesity, remote history of tobacco dependence with smoking 32 years ago, osteoarthritis, cervical stenosis post anterior cervical decompression, discectomy and fusion, TIA as a child at age 11 and family history of premature coronary artery disease with her father being diagnosed in his early 50s. Recently, the patient has been experiencing episodes of shortness of breath over the past 6 months with just minimal activity. She also complained of some lower extremity swelling which did resolve with some diuresis. she underwent a stress test which showed anterior wall ischemia with small reversible defect. a 2-D echocardiogram which showed mild aortic valve insufficiency, mild mitral valve regurgitation, mild tricuspid valve regurgitation and left ventricular function to be normal with an ejection fraction of 55%. Subsequently she underwent an elective heart catheterization on 07/27/2020 which demonstrated a left main stenosis with QING with a calculation of 2.6 mm, a 40% stenosis to her mid left anterior descending coronary artery and a 30% stenosis to her right coronary artery. Due to the patient's symptoms and findings on her heart catheterization of left main stenosis a consult was placed to Dr. Sethi from cardiothoracic surgery for further evaluation and treatment recommendations. During her preoperative workup her serum sodium level was found to be 120 and was admitted prior to surgery for treatment of hyponatremia. Last admission On 08/06/2020-08/19/20 the patient was admitted to the hospital for treatment of her hyponatremia, and once her hyponatremia was resolved on 08/10/2020, asubsequently taken to the operating room where Dr. Sethi performed a double vessel coronary artery bypass grafting surgery using the left internal mammary artery to left anterior setting coronary artery, a reverse greater saphenous vein graft from the aorta to the first obtuse marginal coronary artery, endoscopic harvesting of the left greater saphenous vein from the groin Upon completion of the surgery the patient was transferred to the intensive care unit where she was recovered, monitored hemodynamically and where she progressed cardiac rehabilitation phase Her oxygen was titrated down, she continued to work with physical/occupational therapy and cardiac rehabilitation, she was tolerating an oral diet, her pain was well controlled without narcotics and she was ready to be discharged home with [facility] care on postoperative day #9. Did not require home O2 on last admission however she required new medication changes including diuretics during that last admission. Patient comes in in worsening shortness of breath anasarca, no chest pain, has BARKER, edma without leg pain new medications from last visit was compliant, requiring lipitor 75bid, tolvaptan. meotprolol 75 bid plavix, lasix 40 mg daily losartain 25 asa 325, ferrous sulfate and fluconazole. patient comes in now for CHF, anarsarc ely pleural effusion, consult with dr Sethi. and cardiology, if okay will be cardiothoracic surgeon can also perform the thoracentesis, however with hypoxemia, also have requested Dr. Gamboa's services. Patient has a hemoglobin of 7.0 on and 3, platelet count of 305, hemoglobin right to admission was 8.0 denies any Hemoccult stools, creatinine was 1.60 from a previous of 0.9 blood pressure is in the low 90s systolic, pulse ox, 90 on 4 L nasal cannula, patient was not discharged with home O2 during her last admission 08/24: A-Team was called for mental status changes. Patient was found to have a blood pressure 99/65, heart rate of 85 and pulse ox of 96% on a nonrebreather with respiratory rate of 32. Patient was transferred to the ICU. She was started on vancomycin and cefepime. Patient has been seen by cardiology with plan to continue vasopressor support, patient may need pleurocentesis. Stat echocardiogram was done to rule out pericardial effusion or tamponade. Patient has been seen by nephrology for acute kidney injury secondary to ATN secondary to hypotension and cardiorenal syndrome. Patient is currently on bicarb drip, status post Lasix 80 mg IV once. Renal replacement therapy to be initiated immediately. Vascular consult in place for a dialysis catheter placement and start hemodialysis today with second treatment tomorrow. Sternal wound was producing thick yellowish brown fluid, was opened approximately 2 cm and deep culture was taken, packed and covered with 4 x 4 dressing. She is requiring vasopressors. She is hypothermic and warming blanket is in place.Patient had minimal output yesterday and none today. She is status post 2.5 L of fluids. 08/25 patient was examined in the ICU. She was able to maintain oxygenation on BiPAP overnight switch to high flow 15 m this morning. Patient did have episodes of agitation last night and was started on Seroquel. She did receive a dose of Seroquel prior to admission and was found to be resting comfortably. Patient is off pressors and bicarbonate drip and metabolic acidosis seemed to have cleared off. On evaluation of patient's lab, WBC is 14.3, hemoglobin 6.5 platelet 208 ABG this morning has a pH of 7.47 CO2 74. Bicarb 29. Sodium has improved to 126 chloride 96 BUN 43 creatinine 2.79 lactic acid has improved to 2.9 calcium 7 liver enzymes elevated AST at 2874 ALT 1469 alkaline phosphatase 192 CRP 356 BNP 13,000 UA does suggest some infection with WBC of 88 hyaline casts 33 protein 2+ urine blood trace nitrite negative leukocyte Estrace negative. Wound cultures positive for presumptive staph aureus. Patient's blood culture from yesterday are positive with presumptive staph aureus. Repeat blood cultures ordered. Patient received 1 unit of PRBCs for low hemoglobin. Urine output has improved to 20-40 mL's per hour. Patient did receive a dose of DDAVP for hyponatremia. Normal saline is running at 50 mL per hour. Did receive hemodialysis today with 2 L ultrafiltration. Patient was also noted to be in A. fib with RVR intermittently and her dose of Lopressor was increased to 25 mg every 8 hours. Continue daptomycin and cefepime for antibiotic coverage. Monitor patient's for QTC prolongation well on Seroquel. Patient has significant dehiscence of wound and may need I&D 08/26: She was intubated and placed on mechanical ventilation overnight with pulse ox of 96%, tidal volume 450, FiO2 50, PEEP of 5. Temperature max last evening was 101.2. Heart rate 82, blood pressure 120/53. WBC 9.6, hemoglobin 10.8, platelet count 159. Sodium 134, potassium 4.7, chloride 100, CO2 25, BUN 14 creatinine 1.83. Blood sugars running between 100 2753. Total bilirubin 3.3, AST 1067, ALT 993, alkaline phosphatase 251. Magnesium 2.1. Patient is on vasopressors. monitoring tech atrial flutter alternating with sinus rhythm. Patient is also on propofol and Seroquel discontinued. Thoracic surgery is possible taking her to or for I&D and considering wound VAC. Patient is on Plavix. Echocardiogram reveals normal LV function and mild aortic stenosis. Patient is currently on daptomycin and cefepime per Dr. Mcintyre. Urine output remains low at 15-20 mL per hour. Should she is scheduled for third hemodialysis treatment today. Patient is scheduled for Lasix 80 mg IV this afternoon. 08/27 she remains in the ICU, intubated and mechanically ventilated. Patient is going to the OR for debridement today. Patient remains intubated on 50% FiO2 and PEEP of 5, assist control rate of 20volume 450. Continues to require Levophed at 11mcg/ hr . Blood clots and culture positive for MSSA. Urine output is 50-60 mL per hour. Patient continues to be on sedation from propofol at 50 max per KG permanent. IV fluids at KVO. Patient continues to have good urine output after a dose of 80 mg of IV Lasix today. Vision tolerated 2.5 L ultrafiltration yesterday and is started on hemodialysis on August 24. No holiday sedation today. Plan to continue Lasix 80 IV once daily and holding hemodialysis. Anticoagulation held for debridement. 08/28 patient remains in the ICU. Did have sternal Exploration and debridement yesterday remains sedated on propofol. Patient continues to have high temp of 101.6, to 233 tachycardic 111 blood pressure 106/51 oxygen saturation 95% on 50% FiO2. Labs suggest a leukocytosis of 24.3 hemoglobin stable at 10.7 platelet count has dipped dropped to 78, he really suggest a pH of 7.53 pCO2 30 PaO2 57, chloride of 110 potassium 3.5 and anion gap of 6 BUN 46 creatinine 0.9 calcium 7.8 ALT 3:15 alkaline phosphatase 312 AST 112 blood cultures from 08/26 positive for staph aureus. Urine output 1.2 L in 24 hours Repeat blood cultures sent today. Patient continues to be normal sinus rhythm not currently on any anticoagulation at the possibility of going for another debridement. Patient's continues to be on levo fed and still stays intubated. Continue IV Lasix. Patient initiated on IV Lasix 08/29: Patient remain in the ICU, remain on mechanical ventilation, sternal exploration and debridement was done and still have packing area within open wound at this point. Oxygenation is better patient is not 3 to be off vent at this point. Her urine output has been good and hemodynamically stable. 08/30: Patient still on mechanical ventilation, his sternum 1 and was changed today still have significant amount of infection and pus was packed still open. Patient remain on nafcillin and Moni mycin. Still having positive blood culture. 08/31: Patient is more awake today doing trial of weaning parameter try to get patient off the respirator, her incision and infection along the sternum is no change still have packing on still on IV antibiotics. Hemodynamically is more stable. 09/01: Patient evaluated in the ICU, continues on mechanical ventilation. Wound packing was removed yesterday, purulence was noted on the packing, deep near the heart and purulence around the heart. She continues on IV clindamycin and nafcillin. Patient was taken off sedation yesterday for a trial of weaning, but she became hypertensive and tachypneic so she is placed back on sedation. 09/02: Patient remains intubated and on mechanical ventilation with tidal volume 400, FiO2 of 50% and PEEP of 5. Patient has been off sedation since Monday. She is receiving OG tube feedings. She appears to be opening meaning her eyes and can shake her head. Otherwise not moving extremities. She has a wound VAC in place to the sternal wound. Wound cultures and blood culture positive for MSSA. She is scheduled for sternal wound excision and debridement with flap reconstruction and graft tomorrow with Dr. Whittaker. Repeat blood work reveals WBC of 13.6, hemoglobin 8.5. BUN 66 and creatinine 1.62, potassium 3.2 and has been replaced, blood sugars running between 107 and 132. Because renal functioning is worsening, nephrology has recommended holding nafcillin. Repeat chest x-ray reveals correlate for pneumonia, edema, ARDS. 09/03: She remains in the intensive care unit intubated and on mechanical ventilation with tidal volume 400, FiO2 40, PEEP of 5. Patient is awake with eyes open. She nodded her head no to having pain. She had a temperature this morning of 101.6 at 6 AM. Antibiotics are currently in the form of Kefzol. Repeat chest x-ray was done this morning and report is pending. Patient has been seen by neurology and doubt critical illness neuropathy. CAT scan of the brain and cervical spine done that showed no acute fracture or dislocation in the cervical spine. No acute intracranial hemorrhage, mass effect or midline shift. Ongoing airspace disease. Cardiology has recommended reinitiating statin. Temperature max 101.6, heart rate 101, blood pressure 117/52, pulse ox 95%. Repeat blood work reveals WBC 15.4, hemoglobin 8.3, platelet count 243. Sodium 149, potassium 2.8, chloride 111, CO2 28, BUN 66 and creatinine 1.49. Total bilirubin 2.4, AST 43, ALT 33 and alkaline phosphatase 260. All previous blood cultures have been positive for staph aureus MSSA. A repeat blood culture on August 2029 showing no growth at 24 hours. 09/04: Yesterday, patient underwent excision of sternal wound, partial sternotomy and pectoralis flap procedure. This morning, patient had new lines done by pulmonary medicine. Dr. Mcintyre has recommended continuing Kefzol and repeat blood cultures are in progress. Repeat chest x-ray reveals rotated exam, findings similar to prior, correlate for edema, pneumonia, ARDS. Cardiothoracic surgeryhas ordered a consult with Dr. Yuan. He has evaluated patient for global weakness and does not think she has new cervical spine issues that would cause her global weakness.patient continues to have fever with temperature maximum 102.2, tachycardic in the low 100s, respiratory rate 30, blood pressure 103/60, pulse ox 98%. She remains intubated and on mechanical ventilation with tidal volume 400, FiO2 50, PEEP of 5. WBC 17.5, hemoglobin 7.2, platelet count 328. Sodium 149, potassium 3.8, chloride 115, CO2 26, BUN 59 and creatinine 1.37. Blood sugars running 129-144. Magnesium 2.6. Total bilirubin 2.0, AST 39, alkaline phosphatase 197, ALT 19.. sputum culture has been obtained. Most recent blood culture from September 02 showing no growth at 24 hours and blood culture from September 01 is no growth at 48 hours. Patient is currently on very minimal sedation. 09/05: Patient remains in the ICU, intubated and on mechanical ventilation with tidal volume 400, FI02 40% and peep 5. Patient continues to run fevers. Dr. Mcintyre has changed antibiotics to cefepime and daptomycin. Blood cultures dated September 01, , are showing no growth. Sputum culture is in process. monitoring tech sinus tachycardia. Heart rate has been running between 108 and 121, respiratory rate 31, blood pressure 90/32, pulse ox 98%. She remains on low dose norepinephrine. Patient is off sedation with eyes open. She is not moving extremities. She has been evaluated by orthopedic spine and spinal etiology has essentially been ruled out. Patient is also been evaluated by neurology and critical care neuropathy has also been essentially ruled out. Patient stabilized, hopefully a MRI can be performed. WBC 13.4, hemoglobin 5.4 and this was rechecked, platelet count 313, sodium 152, potassium 3.6, BUN 45 and creatinine 1.2. Patient is receiving 1 unit of packed RBCs. Nephrology is continuing IV Lasix 40 mg daily. Patient is on PEG tube feedings and tolerating. 09/06: Patient remains in intensive care unit. She is intubated and on mechanical ventilation with tidal volume 400, FiO2 40, PEEP 5. The patient has her eyes open, she is responsive with facial movement, she is able to minimally move lower extremities. She has a fecal management system in place as well as Yu catheter with good urine output. Patient was running fevers yesterday until evening. Patient has been afebrile following a reading of 1800 last night of 100.9. She is on IV antibiotics with cefepime and daptomycin. Heart rate 95-112, respiratory rate 28. Repeat chest x-ray reveals cardiomegaly with increased alveolar and interstitial edema and/or infiltrates bilaterally remain present. Possible ARDS. Hemoglobin today is at 8 status post She is continued on IV Lasix per nephrology. Potassium replaced. W BC 10.6, platelet count 276. Sodium 150, potassium 3.6, chloride 119, CO2 24, BUN 42 and creatinine 1.03. Blood sugar 140. Patient is receiving tube feedings at goal rate. 09/07: She remains in the intensive care unit, intubated and on mechanical ventilation with FiO2 of 40%, PEEP of 5. She remains off sedation and is awake and able to follow some minimal commands. Mature max 101.6, heart rate 104, respiratory rate 34, blood pressure 81/30, pulse ox 97%. AP blood work reveals WBC 11.8, hemoglobin 9.5, platelet count 347. Sodium 148, potassium 3.7, chloride 117, CO2 25, BUN 38 and creatinine 0.96. Blood sugar running between 112 117. Magnesium 2.0. Total bilirubin 1.5, AST 41, ALT 19, alkaline phosphatase 181. Albumin 2.4. Blood cultures on every remain without g rowth at 120 hours. Sputum culture has been finalized no growth. Patient is continued on cefepime and optimizing. PICC line is being inserted this morning by interventional radiology. OG tube with feedings at goal. Patient is not currently on vasopressors. 3: Patient remains in the intensive care unit intubated and on mechanical ventilation with tidal volume 400, FiO2 35 and PEEP of 5. Patient was on CPAP yesterday for about 8 hours but was unable to tolerate for only short period today. Her mental status has been labile. She is intermittently following commands with no response and staring. Patient appears to be uncomfortable. Generalized anasarca noted. She has brown liquid stool from fecal management system and we will check a C. diff toxin. Most likely diarrhea is only from tube feedings. Temperature max 101.6. Heart rate 113, respiratory rate 39, blood pressure 120/61, pulse ox 99%. Repeat chest x-ray reveals correlate for pneumonia, edema, ARDS. Repeat blood work reveals WBC 10, hemoglobin 7.4, platelet count 298. Sodium 145, potassium 3.4, chloride 114, CO2 24, BUN 33 and creatinine 0.85. Blood sugars are running between 115 and 122. Total bilirubin 1.2, AST 39, ALT 23, and phosphatase 150. Urinalysis sent last evening showed blood moderate, RBC 64, WBC 7. Blood cultures since every are showing no growth. 09/09: Patient remains in the intensive care unit intubated and on mechanical ventilation. Patient has been started on Precedex. She remains with [address] to the sternal wound. Yu catheter with good urine output. Fecal management system in place. C. difficile toxin was negative. 2. Feedings are at goal. The patient is not focusing eyes, no purposeful movements. Patient has been afebrile greater than 24 hours. Heart rate 90s, respiratory rate 30s to 40s, blood pressure 112/64, pulse ox 97%. WBC 9.0, hemoglobin 7.3, platelet count 292. Potassium 3.4 and will be replaced. Blood sugars running between 100 2049. Alkaline phosphatase 161. TSH 3.7-0. We have also added a vitamin B12 level. Lasix was increased to twice daily. Temperature max 100.6. 09/10: Patient remains in intensive care unit, intubated and on mechanical ventilation with tidal volume 400, FiO2 35, PEEP 5. Patient has been started on propofol since yesterday's eval. Temperature max 100.6, heart rate 80, respiratory rate 28, blood pressure 104/60, pulse ox 90%. Repeat blood work reveals Connie BC 12.5, hemoglobin 7.4, platelet count 403. Electrolytes are normal. BUN 34 and creatinine 0.81. Blood sugars are running 123 236. Magnesium 2.0. AST 42, ALT 31, alkaline phosphatase 183. Chest x-ray is stable. REVIEW OF SYSTEMS Unable to obtain due to mental status change/intubation. PHYSICAL EXAMINATION Gen: This is a 75-year-old female. Patient is resting in ICU bed and appears to be comfortable. HEENT: Head is atraumatic, normocephalic. Pupils equal, round. Sclerae is anicteric. Patient intubated and on mechanical ventilation. NECK: Supple. No JVD. No lymphadenopathy. LUNGS: Diminished. No wheezes or rhonchi. No intercostal retractions. HEART: Regular rate and rhythm. 2/6 systolic murmur. Dressing to sternal wound, wound VAC, 3 RAHEEM drains with serosanguineous drainage. ABDOMEN: Soft. Bowel sounds are present. No masses. No tenderness. EXTREMITIES: 2+ bilat pitting edema. Generalized anasarca. NEUROLOGICAL: Patient resting comfortably in bed, eyes are open and staring, no blinking noted, patient is unresponsive and not making any purposeful movements. ASSESSMENT AND PLAN 1. Acute diastolic heart failure, (POA) EF 55%, mild AI and mild MR and mild TR, also complicated by severe protein calorie malnutrition, Cardiology consult appreciated. Continue Lasix 40 mg IV daily managed by nephrology. 2. Acute hypoxemic respiratory failure. (POA) Patient has underlying pulmonary hypertension as well, consult with coronary. Patient is intubated and on mechanical ventilation. Pulmonary medicine is managing. 3. Acute kidney injury secondary to ATN secondary to hypotension and cardiorenal syndrome. (POA) Patient is status post dialysis catheter placement, hemodialysis. Patient is followed closely by nephrology. 4. Hyperkalemia secondary to potassium supplementation, losartan and acute kidney injury as well as severe acidosis. (POA) Consult with nephrology appreciated. Continue medical management. 5. Metabolic acidosis secondary to acute kidney injury. (POA) 6. Metabolic encephalopathy secondary to acute kidney injury, acute heart failure, acute respiratory failure, metabolic acidosis and hyperkalemia. (POA) improving. 7. Sepsis with septic shock with multiorgan failure with metabolic encephalopathy, acute kidney injury, acute heart failure, acute respiratory failure, MSSA bacteremia. (POA) status post sternal exploration and sternal debridement on August 27. 8. Sepsis with sternal wound dehiscence. (POA) Status post sternal exploration and sternal debridement on 08/27 followed by excision of sternal wound, partial sternotomy and pectoralis flap procedure on 09/03. Infectious disease consult appreciated. Antibiotics have been transitioned to cefepime and daptomycin. 9. Acute blood loss anemia, postop, status post transfusion of 5 units of packed RBCs. Continue to monitor. 10. Hyponatremia. Continue to monitor. 11. CAD, with prior CABG performed on 08/10/2020, two-vessel, involving HOLLAND to LAD, and reverse greater saphenous vein to obtuse marginal coronary artery. Continue aspirin 325 mg daily, Plavix 75 mg daily, Toprol all 75 mg twice a day, 12. Severe protein calorie malnutrition, with anasarca and hypotension. Continue tube feedings. 13. History of pulmonary fibrosis. Continue duo nebs and albuterol 14. Asthma, mild intermittent. Continue ipratropium albuterol nebulizers 15. Hyperlipidemia. Continue statin daily 16. Hypertension. Currently hypotensive 17. GI prophylaxis. Pantoprazole 18. Critical care neuropathy essentially ruled out by and neurology. 19. DVT prophylaxis: SCDs 20. Blood sugar management in a nondiabetic. insulin scale every 6 hours. 21. Acute transaminitis secondary to hypoperfusion. 22. Chronic kidney disease stage II. Prognosis guarded DISCHARGE PLAN TBD. Impression and plan of care have been directed as dictated by the signing physician. Monica Fragoso nurse practitioner acting as scribe for signing physician. Objective - Vital Signs Vital signs: Vital Signs Temp 99.4 F 09/10/20 08:00 Pulse 89 09/10/20 09:00 Resp 33 H 09/10/20 09:00 BP 98/57 09/10/20 09:00 Pulse Ox 98 09/10/20 09:00 Intake & Output 09/09/20 09/10/20 09/10/20 18:59 06:59 18:59 Intake Total 3301.482 6731.081 697.928 Output Total 2060 1580 220 Balance -491.586 291.081 477.928 Weight 89 kg 85.8 kg Intake: IV 476 356 269 Cefepime 2 gm In Sodium 100 100 100 Chloride 0.9% 100 ml @ 25 mls/hr IVPB Q12HR [facility] Rx #:[id number] DAPTOmycin 500 mg In 100 100 Sodium Chloride 0.9% 50 ml @ 100 mls/hr IVPB Q24HR [facility] Rx#:[id number] Dextrose 5% in Water 1, 240 220 60 000 ml @ 20 mls/hr IV . Q24H [facility] Rx#:[id number] Pressure Bag 36 36 9 Intake, IV Titration 98.414 267.081 66.928 Amount Dexmedetomidine/0.9% NaCl 62.764 (Pmx) 400 mcg In Empty Bag 1 bag @ Titrate IV . Q0M [facility] Rx#:[id number] Norepinephrine 8 mg In 35.650 117.081 Sodium Chloride 0.9% 250 ml @ 0.05 MCG/KG/MIN 8. 611 mls/hr IV .Q24H [facility] Rx#:[id number] propofoL 1,000 mg In 66.928 Empty Bag 1 bag @ Titrate IV .Q0M [facility] Rx#: [id number] propofoL 500 mg In Empty 150 Bag 1 bag @ Titrate IV . Q0M [facility] Rx#:[id number] Tube Feeding 594 648 162 Other 400 600 200 Output: Drainage 90 60 RAHEEM #1. 10 5 RAHEEM #2 70 50 RAHEEM #3 10 5 Urine 1870 1520 220 Stool 100 Other: Voiding Method Indwelling Catheter Indwelling Catheter Indwelling Catheter ABP, PAP, CO, CI - Last Documented Arterial Blood Pressure 130/48 - Labs CBC & Chem 7: 09/10/20 04:10 09/10/20 04:10 Labs: Abnormal Lab Results - Last 24 Hours (Table) 09/09/20 09/09/20 09/09/20 Range/Units 11:22 14:00 17:27 WBC (3.8-10.6) k/uL RBC (3.80-5.40) m/uL Hgb (11.4-16.0) gm/dL Hct (34.0-46.0) % RDW (11.5-15.5) % Neutrophils # (1.3-7.7) k/uL ABG pH (7.35-7.45) ABG pCO2 (35-45) mmHg ABG Total CO2 (19-24) mmol/L ABG O2 Saturation (94-97) % BUN (7-17) mg/dL Glucose (74-99) mg/dL POC Glucose (mg/dL) 106 H 121 H (75-99) mg/dL Calcium (8.4-10.2) mg/dL AST (14-36) U/L Alkaline Phosphatase (38-126) U/L Albumin (3.5-5.0) g/dL Procalcitonin 0.83 H (0.02-0.09) ng/mL 09/09/20 09/10/20 09/10/20 Range/Units 23:30 04:10 04:10 WBC 12.5 H (3.8-10.6) k/uL RBC 2.56 L (3.80-5.40) m/uL Hgb 7.4 L (11.4-16.0) gm/dL Hct 23.5 L (34.0-46.0) % RDW 17.7 H (11.5-15.5) % Neutrophils # 8.0 H (1.3-7.7) k/uL ABG pH (7.35-7.45) ABG pCO2 (35-45) mmHg ABG Total CO2 (19-24) mmol/L ABG O2 Saturation (94-97) % BUN 34 H (7-17) mg/dL Glucose 123 H (74-99) mg/dL POC Glucose (mg/dL) 126 H (75-99) mg/dL Calcium 8.1 L (8.4-10.2) mg/dL AST 42 H (14-36) U/L Alkaline Phosphatase 183 H (38-126) U/L Albumin 2.4 L (3.5-5.0) g/dL Procalcitonin (0.02-0.09) ng/mL 09/10/20 09/10/20 Range/Units 04:52 06:17 WBC (3.8-10.6) k/uL RBC (3.80-5.40) m/uL Hgb (11.4-16.0) gm/dL Hct (34.0-46.0) % RDW (11.5-15.5) % Neutrophils # (1.3-7.7) k/uL ABG pH 7.48 H (7.35-7.45) ABG pCO2 34 L (35-45) mmHg ABG Total CO2 26 H (19-24) mmol/L ABG O2 Saturation 98.8 H (94-97) % BUN (7-17) mg/dL Glucose (74-99) mg/dL POC Glucose (mg/dL) 121 H (75-99) mg/dL Calcium (8.4-10.2) mg/dL AST (14-36) U/L Alkaline Phosphatase (38-126) U/L Albumin (3.5-5.0) g/dL Procalcitonin (0.02-0.09) ng/mL Microbiology - Last 24 Hours (Table) 09/03/20 18:02 Blood Culture - Final Blood No Growth after 144 hours 09/08/20 Unknown Catheter Tip Culture - Preliminary Catheter Tip 09/07/20 09:27 Blood Culture - Preliminary Blood No Growth after 48 hours
--- NOTE | 2020-09-10 15:51 | P.PN ---
Subjective Progress Note Date: 09/10/20 Patient was seen at bedside and per the patient nurse the patient was agitated and tachypneic and gets restless as a result the patient was started on propofol IV drip and she is at 40 mics per keg per minute. Per the patient's nurse from yesterday is seems that the patient was moving right lower extremity the more than upper and in the uppers suggest the has movement in her hands other than that the doesn't follow commands. Objective - Vital Signs Vital signs: Vital Signs Temp 98.4 F 09/09/20 09:00 Pulse 81 09/09/20 14:45 Resp 27 H 09/09/20 14:45 BP 104/54 09/09/20 14:30 Pulse Ox 97 09/09/20 14:45 Intake & Output 09/08/20 09/09/20 09/09/20 18:59 06:59 18:59 Intake Total 8557.595 4246.992 982.877 Output Total 2315 505 1840 Balance -3551.918 1582.992 -857.123 Weight 89 kg 89 kg Intake: IV 310 213 384 Cefepime 2 gm In Sodium 100 100 Chloride 0.9% 100 ml @ 25 mls/hr IVPB Q12HR [facility] Rx #:[id number] DAPTOmycin 500 mg In 50 100 Sodium Chloride 0.9% 50 ml @ 100 mls/hr IVPB Q24HR [facility] Rx#:[id number] Dextrose 5% in Water 1, 160 180 160 000 ml @ 20 mls/hr IV . Q24H [facility] Rx#:[id number] Pressure Bag 33 24 Intake, IV Titration 17.297 73.992 74.877 Amount Dexmedetomidine/0.9% NaCl 17.297 73.992 62.764 (Pmx) 400 mcg In Empty Bag 1 bag @ Titrate IV . Q0M [facility] Rx#:[id number] Norepinephrine 8 mg In 12.113 Sodium Chloride 0.9% 250 ml @ 0.05 MCG/KG/MIN 8. 611 mls/hr IV .Q24H [facility] Rx#:[id number] Tube Feeding 286 648 324 Other 600 800 200 Output: Drainage 90 30 50 RAHEEM #1. 10 RAHEEM #2 70 30 50 RAHEEM #3 10 Urine 2175 475 1690 Stool 50 100 Other: Voiding Method Indwelling Catheter Indwelling Catheter Indwelling Catheter ABP, PAP, CO, CI - Last Documented Arterial Blood Pressure 129/46 - Exam GENERAL: The patient is lying in bed and does not seem in acute distress. Respiratory: Intubated and on ventilator. NEUROLOGICAL: Limited since patient is on IV propofol 40mcg/kg/min. Neurological exam is limited because of her condition. There is no sponatenous movement. - Labs CBC & Chem 7: 09/10/20 04:10 09/10/20 04:10 Labs: Abnormal Lab Results - Last 24 Hours (Table) 09/08/20 09/08/20 09/09/20 Range/Units 17:15 23:42 04:00 RBC (3.80-5.40) m/uL Hgb (11.4-16.0) gm/dL Hct (34.0-46.0) % RDW (11.5-15.5) % ABG pH (7.35-7.45) ABG pCO2 (35-45) mmHg ABG pO2 (83-108) mmHg ABG Total CO2 (19-24) mmol/L ABG O2 Saturation (94-97) % Potassium 3.4 L (3.5-5.1) mmol/L Chloride 110 H (98-107) mmol/L BUN 35 H (7-17) mg/dL Glucose 120 H (74-99) mg/dL POC Glucose (mg/dL) 116 H 149 H (75-99) mg/dL Calcium 8.1 L (8.4-10.2) mg/dL Alkaline Phosphatase 161 H (38-126) U/L Total Protein 5.8 L (6.3-8.2) g/dL Albumin 2.2 L (3.5-5.0) g/dL 09/09/20 09/09/20 09/09/20 Range/Units 04:00 05:05 05:07 RBC 2.56 L (3.80-5.40) m/uL Hgb 7.3 L (11.4-16.0) gm/dL Hct 23.1 L (34.0-46.0) % RDW 17.3 H (11.5-15.5) % ABG pH 7.50 H (7.35-7.45) ABG pCO2 30 L (35-45) mmHg ABG pO2 78 L (83-108) mmHg ABG Total CO2 25 H (19-24) mmol/L ABG O2 Saturation 97.7 H (94-97) % Potassium (3.5-5.1) mmol/L Chloride (98-107) mmol/L BUN (7-17) mg/dL Glucose (74-99) mg/dL POC Glucose (mg/dL) 135 H (75-99) mg/dL Calcium (8.4-10.2) mg/dL Alkaline Phosphatase (38-126) U/L Total Protein (6.3-8.2) g/dL Albumin (3.5-5.0) g/dL 09/09/20 Range/Units 11:22 RBC (3.80-5.40) m/uL Hgb (11.4-16.0) gm/dL Hct (34.0-46.0) % RDW (11.5-15.5) % ABG pH (7.35-7.45) ABG pCO2 (35-45) mmHg ABG pO2 (83-108) mmHg ABG Total CO2 (19-24) mmol/L ABG O2 Saturation (94-97) % Potassium (3.5-5.1) mmol/L Chloride (98-107) mmol/L BUN (7-17) mg/dL Glucose (74-99) mg/dL POC Glucose (mg/dL) 106 H (75-99) mg/dL Calcium (8.4-10.2) mg/dL Alkaline Phosphatase (38-126) U/L Total Protein (6.3-8.2) g/dL Albumin (3.5-5.0) g/dL Microbiology - Last 24 Hours (Table) 09/07/20 09:27 Blood Culture - Preliminary Blood No Growth after 48 hours 09/08/20 Unknown Catheter Tip Culture - Preliminary Catheter Tip 09/03/20 18:02 Blood Culture - Preliminary Blood No Growth after 120 hours 09/02/20 18:52 Blood Culture - Final Blood No Growth after 144 hours Assessment and Plan Assessment: * New onset quadriplegia--improved to more movement in lower extremities compared to upper, unclear etiology. Rule out rule out spinal cord involvement like epidural abscess and rule out critical illness myopathy especialy CT of the cervical spine showed no evidence of discitis osteomyelitis. 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 Improved. Blood cultures negative since 09/01/2020. * Status post CABG, followed by wound infection, requiring sternal debridement with persistent sepsis. Status post placement of muscle flap. * Septic shock with MSSA * Mild hypernatremia--improving * Acute kidney injury--improved * Acute transaminitis * CHF * Hypertension * History of cervical fusion, spinal stenosis in the past. Plan: * Patient underwent EEG testing on 09/05/20: Reported as abnormal due to background slowing of moderate to severe degree. This is suggestive of generalized cerebral dysfunction as can be seen with toxic metabolic encephalopathy or related to diffuse structural brain abnormality. No epileptiform activity was seen. No indication for antiepileptic medication. * Patient has quadriplegia, but apparently has started showing some improvement her nurse report. Continue close observation. * Patient continues to be encephalopathic, due to toxic metabolic encephalopathy. * Appreciate Orthopedic spine input. Hardware in the cervical spine is stable. No loosening. * CPK 74, TSH 1.87, aldolase 8.4 (1.2 to 7.6). Repeat TSH: 3.72 (normal). * Pending MRI Cervical spine (currently intubated and once stable will get MRI). I ordered CT of the cervical and thoracic with and without as well as CT of the brain to rule out any abscess. The plan is discussed with the patient's nurse. Will follow-up with patient sporadically. Samy Guadalupe MD Neuro-hospitalist Time with Patient: Less than 30
--- NOTE | 2020-09-10 17:11 | CT ---
EXAMINATION TYPE: CT chest wo con DATE OF EXAM: 09/10/2020 HISTORY: Infiltrate. TECHNIQUE: CT scan of the thorax is performed without IV contrast. CT DLP: 950.6 mGycm. Automated Exposure Control for Dose Reduction was Utilized. COMPARISON: CT 08/24/2020 FINDINGS: AIRWAYS / LUNGS: Endotracheal tube tip 2 cm above the eric. The airways are unremarkable. There are new multifocal ill-defined added opacities throughout the lungs bilaterally, occupying approximately 50% of the lung volume. PLEURAL SPACES: There is no pneumothorax. Limited scans bilateral dependent pleural effusions noted. MEDIASTINUM: NG tube present, coursing from esophagus into the stomach. Mediastinal drains. Previousl y seen sternotomy changes have markedly improved in the interim. No focal fluid collection. No pneumo pericardium. There are a few scattered subcentimeter lymph nodes, but no definite acute mediastinal p rocess. OTHER: No additional significant abnormality is seen. LIMITATION: IV contrast was not utilized. IMPRESSION: Large bilateral pulmonary focal infiltrates.
--- NOTE | 2020-09-10 17:13 | CT ---
EXAMINATION TYPE: CT brain wo/w con DATE OF EXAM: 09/10/2020 COMPARISON: 09/02/2020k HISTORY: 75-year-old female confusion, Altered mental status and weakness in arms. TECHNIQUE: Examination was done in axial plane without intravenous contrast. Coronal and sagittal r econstructions performed. CT DLP: 2046.2 mGycm Automated exposure control for dose reduction was used. FINDINGS: There is no evidence of acute intracranial hemorrhage, acute ischemic changes, mass, mass-effect, or extra-axial fluid collection. There is no effacement of cerebral sulci or basal subarachnoid cister ns. Mild ventricular prominence likely secondary to central cerebral atrophy, age related change. Mil d patchy periventricular white matter hypodensities. There is no midline shift. Ontiveros-white matter d istinction is preserved. Dominant right vertebral artery. No enhancing intracranial lesions. Dural venous sinuses appear paten t. The patient is intubated. There is layering fluid in the mastoid air cells on both sides. Paranasal sinuses appear well pneumatized. Orbits and globes are intact. IMPRESSION: 1. No acute intracranial abnormality seen. No enhancing intracranial lesions. 2. Layering fluid in the mastoid air cells on both sides likely due to intubated state. Correlate to exclude mastoiditis.
--- NOTE | 2020-09-10 17:27 | CT ---
EXAMINATION TYPE: CT CervThoracic spine wo/w con DATE OF EXAM: 09/10/2020 COMPARISON: None HISTORY: 75 year-old female Altered mental status and weakness in arms. R/O abscess. TECHNIQUE: Contiguous axial scanning of the cervical and thoracic spine performed without and with IV Contrast, patient injected with 100 mL of Isovue 300. Coronal/sagittal reconstructions performed. CT DLP: 2424.4 mGycm Automated exposure control for dose reduction was used. FINDINGS: Cervical spine: No craniocervical junction anomaly, predental space widening, or prevertebral soft tissue swelling. D egenerative changes of the C1 dens articulation. Post surgical change of C3-C7 ACDF. Degenerative change below the fusion with hypertrophic facet arth ropathy and grade 1 anterolisthesis at C7-T1. Large posterior disc osteophyte complex at the fused C3 -C4 level may cause a moderate spinal canal stenosis. Assessment of the spinal canal is severely limited due to extensive metal hardware artifact. At C3-C4, severe left neuroforaminal stenosis. At C6-C7, moderate to severe right neuroforaminal stenosis. Otherwise, there are variable mild to moderate neural foraminal stenosis throughout. Patient is intubated. NG tube is present. Prominent secretions throughout the visualized oral cavity and hypopharynx. Extensive groundglass changes and septal lines in the visualized upper lungs. There are also some mil dly enlarged mediastinal lymph nodes measuring up to 1.2 cm along the upper right paratracheal region . Chest reported separately. THORACIC SPINE: Artifact from patient's large body habitus limiting assessment of the spinal canal. No endplate erosi ons identified. Grade 1 anterolisthesis at C7-T1 below the patient's ACDF secondary to hypertrophic facet arthropathy . [facility] within the lower thoracic spine. No prevertebral paravertebral soft tissue abnormality seen. Veronique iable moderate neural foraminal stenoses upper and lower thoracic spine. Chest reported separately. IMPRESSION: CERVICAL SPINE: 1. Note the low utility for assessment of epidural abscess with CT. The C3-C7 ACDF hardware causes ex tensive artifacts further limiting assessment of the spinal canal. 2. Thickening of the prevertebral soft tissues likely due to intubated state and fluid filling the or opharynx and hypopharynx. If concern for retropharyngeal abscess or abscess involving the more anteri or soft tissues, contrast-enhanced CT of the neck soft tissues can be considered. 3. Disc osteophyte complex contributing to moderate spinal canal stenosis at C3-C4. Severe left neuro foraminal stenosis at this level. 4. Moderate to severe right neuroforaminal stenosis at C6-C7. Degenerative grade 1 anterolisthesis at C7-T1. THORACIC SPINE: 5. No vertebral compression collapse. Degenerative grade 1 anterolisthesis secondary to hypertrophic facet arthropathy below the ACDF at C7-T1. 6. Again, low utility of CT for assessment of epidural abscess. Further limitation due to artifact fr om large patient body habitus. No endplate erosions are seen. MRI if persistent clinical concern. 7. Chest reported separately.
[2020-09-10 17:39] LABS: Glucose,Whole Blood 109 mg/dL (75-99)
[2020-09-10] MEDS: NOREPINEPHRINE 8 MG in SODIUM CHLORIDE 0.9% 250 ML IV SCH (17:56)
[2020-09-10] MEDS: MELATONIN 3 MG TABLET PO SCH (20:39)
--- NOTE | 2020-09-10 23:10 | PN ---
PROGRESS NOTE DATE OF SERVICE: 09/10/2020 REASON FOR FOLLOWUP: MSSA bacteremia with sternal osteomyelitis. INTERVAL HISTORY: The patient is currently afebrile. The patient is hemodynamically stable. The patient's FiO2 is currently stable. Mentation remains to be an issue. No vomiting or any worsening diarrhea reported by the Nursing staff. PHYSICAL EXAMINATION: Blood pressure 120/43, pulse 86. Temperature 98.6. She is 99% on 5% FiO2. General description is an elderly female lying in bed in no distress. Respiratory system: Unlabored breathing, decreased breath sounds in the bases. Heart: S1, S2. Regular rate and rhythm. ABDOMEN: Soft, no tenderness. LABS: Hemoglobin 7.4, white count 12.5, BUN of 34, creatinine 0.81. Blood culture repeat has been negative so far. 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 The patient is currently afebrile. White count mildly elevated today. She is covered with cefepime, daptomycin to continue while monitoring clinical course closely. Continue supportive care. MMODL / IJN: [id number] /
[2020-09-10 23:42] LABS: Glucose,Whole Blood 126 mg/dL (75-99)
[2020-09-11] MEDS: IPRATROPIUM-ALBUTEROL 3 ML NEB INHALATION SCH ×7 (01:04→23:19)
[2020-09-11] MEDS: fentaNYL (PF) 50 MCG/ML 2 ML AMP IVP PRN ×2 (01:45→06:16)
[2020-09-11 04:10] LABS: ABG Base Excess 2.2 mmol/L; ABG HCO3 26 mmol/L (21-25); ABG Oxygen Saturation 98.7 % (94-97); ABG PCO2 36 mmHg (35-45); ABG PH 7.47 (7.35-7.45); ABG PO2 96 mmHg (83-108); ABG TCO2 27 mmol/L (19-24); Allen Test Performed? Yes
[2020-09-11 04:23] LABS: Albumin 2.5 g/dL (3.5-5.0); Calcium 8.5 mg/dL (8.4-10.2); Potassium 3.9 mmol/L (3.5-5.1); Total Bilirubin 0.9 mg/dL (0.2-1.3); Total Protein 6.3 g/dL (6.3-8.2)
[2020-09-11 05:34] LABS: Anisocytosis Slight; Basophils # (A) 0.1 k/uL (0-0.2); Basophils % (A) 1 %; Eosinophils # (A) 0.6 k/uL (0-0.7); Eosinophils % (A) 4 %; HCT 23.8 % (34.0-46.0); HGB 7.7 gm/dL (11.4-16.0); Hypochromasia Moderate; Lymphocytes # (A) 2.6 k/uL (1.0-4.8); Lymphocytes % (A) 20 %; MCH 29.8 pg (25.0-35.0); MCHC 32.3 g/dL (31.0-37.0); MCV 92.3 fL (80.0-100.0); Mean Platelet Volume 8.9; Monocytes # (A) 0.8 k/uL (0-1.0); Monocytes % (A) 6 %; Neutrophils # (A) 8.9 k/uL (1.3-7.7); Neutrophils % (A) 68 %; Platelet Count 428 k/uL (150-450); Poikilocytosis Slight; RBC 2.58 m/uL (3.80-5.40); RDW 17.7 % (11.5-15.5); WBC 13.2 k/uL (3.8-10.6)
[2020-09-11 05:43] LABS: Glucose,Whole Blood 132 mg/dL (75-99)
[2020-09-11] MEDS ORDERED: POTASSIUM BICARBONATE/CIT AC 20 MEQ TABLET.EFF NG-TUBE SCH (06:00)
[2020-09-11] MEDS: INSULIN ASPART (NovoLOG) 100 UNIT/ML VIAL SQ SCH ×3 (06:24→19:01)
--- NOTE | 2020-09-11 07:18 | P.PN ---
Subjective Progress Note Date: 09/11/20 wound infection. Reevaluated today on 08/28/2020, patient remains in the ICU, intubated and mechanically ventilated. Her assist-control rate is 20, volume is 450 FiO2 is 50% PEEP was at 5 and I increased it up to 8. ABG showed a pO2 of 57 pCO2 of 30 pH of 7.53. O2 saturation on the monitor is 96%. Patient remains on norepinephrine at 0.07 mcg/kg/m, she is also on propofol at 65 mcg/kg/m. Patient is on enteral feeding. Remains on cefepime and daptomycin for her positive blood cultures/MSSA. Patient is also on Lasix at 80 mg IV push every 24 hours. Her urine output has been good. And her chest x-ray continues to show mild congestive heart failure changes. Patient has leukocytosis with WBC count 24.3, electrolytes are normal BUN is 46 creatinine 0.90. Liver enzymes are trending down slowly Patient was reevaluated today on 08/29/2020, remains intubated and mechanically ventilated. She is on assist control rate of 20 tidal volume is 450 FiO2 is 50% and PEEP of 8. ABG showed a pO2 of 56 pCO2 of 35 pH of 7.50 however her O2 saturation on the monitor is 99%. Patient remains on norepinephrine at 0.05 mcg/kg/m, he is on propofol at 70 mcg/kg/m, she is on Lasix 80 mg IV push daily, with good urine output. IV fluid mostly at KVO. Antibiotics garzon she is on cefazolin and clindamycin. Patient had MSSA in the blood and in the sternal wound. Chest x-ray continues to show evidence of pulmonary edema, and now she seems to be developing some consolidation in the right upper lobe medially. Her sternum remains open, decision regarding sternal closure will be made in the next 24-48 hours by thoracic surgery. Patient continues to have leukocytosis with WBC count of 24.2 hemoglobin is 10.6, basic metabolic profile is normal renal profile is normal not requiring any further dialysis, and she has good urine output responding well to diuretics. Liver enzymes seem to be trending down 08/30/2020 the patient remains intubated on a mechanical ventilator. This morning, she has an assist-control at the rate of 20 with tidal volume of 450 and the flow of 70 with a FiO2 of 50% with a PEEP of 8. The morning blood gases from today showed a pH of 7.55, and the pCO2 is a 35 with a pO2 of 72. Necessity ventilator changes were done. Peak airway pressure was 37. Static pressure was 32. Chest x-ray still showing diffuse bilateral pulmonary infiltrates consistent with pneumonia although possibility of an acute lung injury/ARDS cannot be completely excluded. ET tube is in a good location. The patient this morning is sedated with propofol which is running at 50 mcg/kg per minute. Sedation holiday was given this morning to evaluate her mental status. I was told yesterday that the patient did have some diminished level of consciousness once she was off the sedation. Nevertheless she was placed on sedation again to maintain synchrony with the mechanical ventilator. She is septic with staff aureus, MSSA has been cultured in her sputum, and her blood and in her sternal wound. Her current antibiotic coverage including a combination of nafcillin and clindamycin. She is afebrile. Sternal wound is being monitored by the cardiothoracic surgery team. Daily dressing changes are being done. There is still output which is purulent according to the nursing staff. Pressors and the patient is currently on norepinephrine running at 0.04 mcg/kg per minute. Renal function is improving and the creatinine is down to 0.78. The white cell count is at 19.8 with hemoglobin of 10.2 and a platelet count of 90. Liver function tests continue to improve with an AST of 68, ALT of 77 and the last blood culture was taken from 08/29/2020 was again positive for gram-positive bacteria most likely MSSA. The patient has orogastric tube in place and she is receiving vital high protein at a rate of 23 mL an hour. This is at goal for now. No abdominal distention. No increased residuals for now. She is afebrile. Progress note dated 08/31/2020. This is a 75-year-old female was admitted to the hospital on August 22, she came in for a sternal wound infection, and worsening respiratory status with heart failure. Unfortunately, she developed severe hypoxemic respiratory failure and required intubation on August 25. She was discovered to have a sternal wound infection and went to the operating room for debridement, on August 27. Microbiology is positive for methicillin sensitive staph aureus, and she remains on nafcillin and clindamycin. This patient initially had a two- vessel bypass grafting on 08/10/2020, and was discharged on 08/19/2020. Currently, the patient remains on the volume assist control mode, rate is 20, tidal volume is 400, FiO2 40%, and PEEP of 8. Blood gases show a PaO2 of 65, a PaCO2 39, and a pH is 7.58. His blood gases consistent with a relative hypoxemia, and a severe metabolic alkalosis. Currently, the norepinephrine has been weaned off. She remains on saline at 25 mL an hour, and she is currently not on any sedation. She's getting vital high protein at 23 mL an hour with a goal of 28 mL an hour. Today, regarding do a spontaneous breathing trial, on pressor support of 15, CPAP of 5. If the patient shows any signs of deterioration, such as tachycardia, tachypnea, hypertension, diaphoresis, higher respiratory rates, and/or lower tidal volumes, the patient will be switched back to the volume assist control mode with the. Progress note dated 09/01/2020. 75-year-old female admitted back on August 22. She came into the hospital with a sternal wound infection. In addition, she had worsening respiratory status, with heart failure. She developed reinaldo hypoxemic respiratory failure and required intubation on August 25. At that time, she was discovered to have a sternal wound infection, secondary to staph aureus, and went to the operating room for debridement. This was on August 27. Microbiology is positive for methicillin sensitive staph aureus, and she remains on nafcillin and clindamycin. The patient had a two-vessel bypass grafting done on August 10, and was discharged on August 19. Currently, she remains on the volume assist control modality, the rate of 20, tidal volume 400, FiO2 50%, and PEEP of 5. This morning's blood gases, show a PaO2 of 58, a PaCO2 of 40, and a pH is 7.61. These arterial blood gases are consistent with hypoxemia, and a severe metabolic alkalosis. The FiO2 was increased from 40-50%. Currently, she is on propofol at 20 mcg/kg/m, saline at 15 mL an hour, and vital high protein at 54 mL an hour, which is goal. Today, we are going to ensure that her potassium exceeds 4.5, DC her Lasix, and add Diamox 500 mg a day. We also increased the FiO2 earlier this morning to 50%. She will not wean with his profound metabolic alkalosis, and likely, we will hypoventilate and retain carbon dioxide, to balance out her pH. Hence, it's imperative that we treat the alkalosis aggressively. Progress note dated 09/04/2020. 75-year-old female, admitted back on August 22. She came into the hospital with a sternal wound infection. She had worsening respiratory status with heart failure, and developed reinaldo hypoxemic respiratory failure and required intubat ion on 08/25. At that time, she was discovered to have a sternal wound infection secondary to staph aureus, and went to the operating room on 08/27, for debridement. Microbiology was positive for methicillin sensitive staph aureus. The patient had a two-vessel bypass grafting done on 08/10/2020, and was discharged on 08/19. She remains on the mechanical ventilator. She is on the volume assist control mode, rate of 20, tidal volume 400, FiO2 50%, and a PEEP of 5. She's currently on norepinephrine at 6.1 g her minute, D5W with half-normal saline and 20 mEq of potassium at 75 mL an hour, and tube feeds are currently on hold. This morning, we put a right femoral triple-lumen catheter in, as well as a right brachial arterial line. She received both fentanyl and Nimbex for the procedure. She is also postop day #1, status post excision of sternal wound, right pectoralis major myocutaneous flap, and left pectoralis major myocutaneous flap procedure. The patient's currently reasonably stable in the intensive care unit. No plans on any weaning her extubation at this time. Current laboratory data includes a white count of 17.5, hemoglobin 7.2, hematocrit 23.4, and platelet count 328,000. Morning arterial blood gas shows a PaO2 of 98, a PaCO2 of 34, and pH is 7.48. This blood gases consistent with normoxemia, and a mild respiratory and metabolic alkalosis. Sodium is 149, po tassium is 3.8, chloride 115, CO2 26, anion gap 8, BUN 59, creatinine 1.37. Chest x-ray shows bilateral infiltrates, which could relate to either pneumonia or pulmonary edema. X-ray is unchanged. Progress note dated 09/05/2020. 75-year-old female, admitted back on 08/22. Patient came into the hospital with a sternal wound infection, and developed worsening respiratory status, with heart failure, and reinaldo hypoxemic respiratory failure, requiring intubation on 08/25. At that time, she was discovered to have a sternal wound infection, secondary to staph aureus, and went to the operating room on 08/27, for debridement. Microbiology was positive for methicillin sensitive staph aureus. The patient had a two-vessel bypass grafting done on 08/10/2020, and was discharged home on 08/19. Currently, the patient remains on the ventilator. She is on the volume assist control mode, rate of 20, tidal volume 400, FiO2 40%, PEEP of 5. Arterial blood gases show a PaO2 of 150, PaCO2 35, pH is 7.49. The blood gases are consistent with hyperoxia, and a mild respiratory alkalosis. The patient will have a spontaneous breathing trial today, with a PSV of 80, and CPAP of 5. She's currently getting vital high protein at 54 mL an hour which is goal, and, D5.45, with 20 of potassium, at 20 mL an hour. She is on a small dose of norepinephrine, which is 0.04 g kilogram per minute, or 3.6 mcg /m. The patient is postop day #2, status post excision of sternal wound, with a right pectoralis major myocutaneous flap, and a left pectoralis major myocutaneous flap procedure. White blood count is 13.4, hemoglobin is only 5.4, hematocrit 17.2, and platelet count 313,000. She is currently getting blood. Sodium is 152, potassium 3.6, chlorides 120, carbon dioxide 26, anion gap 6, BUN 45, and creatinine 1.2. The IVs changed from D5 0.45, to just plain dextrose. Progress note dated 09/06/2020. 75-year-old female, admitted back on 08/22/2020. The patient initially came into the hospital with a sternal wound infection, with developing and worsening respiratory failure CHF, and profound hypoxemia. The patient required intubation and mechanical ventilation on 08/25/2020. At that time, he was discovered to have a sternal wound infection secondary to Staphylococcus aureus, and went to the operating room on 08/27/2020 for debridement. Microbiology was positive for methicillin sensitive staph aureus. The patient initially had a two-vessel bypass grafting, on 08/10/2020, and was discharged home 9 days later, on 08/19/2020. The patient remains on the ventilator, on the volume assist control mode, rate of 20, tidal volume 400, FiO2 40%, to be reduced down to 35%, and a PEEP of 5. Arterial blood gases show a PaO2 of 114, PaCO2 of 35, and a pH of 7.45. These blood gases consistent with a mild respiratory alkalosis, and mild hyperoxia. The patient is getting dextrose, at 20 mL an hour, saline at 10 mL an hour, of vital high protein at 54 mL an hour, which is goal, and she will be given a spontaneous breathing trial today on pressure support of 10, and CPAP of 5. Yesterday, on PSV 8, CPAP 5, she only lasted 5 minutes with her trial. In my opinion, unless the patient starts making significant progress, she likely will be a candidate for a tracheostomy and PEG tube procedure. Today's labs show a white count of 10.6, hemoglobin 8, hematocrit 25, and a platelet count of 276,000. Sodium is 150, potassium 3.6, chlorides 119, carbon dioxide 24, anion gap 7, BUN 42, and creatinine 1.03. Rest of the labs are reviewed. Chest x- rays shows cardiomegaly, with increased alveolar and interstitial edema and/or infiltrate laterally. Chest x-ray is unchanged. on 09/07/2020 the patient is being seen for a follow-up. The patient is off sedation and she is wide awake and following commands and answering questions appropriately while her being intubated on a mechanical ventilator. She is still profoundly weak. She can wiggle her toes and fingers. She is unable to raise her arms against gravity.. As such the patient is profoundly weak. She does have normal reflexes in all 4 extremities as such I think this is a myopathy rather than a underlying neuropathy processes underlying her weakness. There was a concern of epidural abscess/discitis. CAT scan of the cervical spine showed no evidence of any abnormalities and the patient was seen by neurology. EEG done earlier showed background slowing and moderate to severe degree of slowing suggestive of diffuse cerebral dysfunction/metabolic encephalopathy. No seizure activity was noted. The hardware and the cervical spine has been stable. No loosening.She was on a mechanical ventilator. Earlier this morning she was assist control mode at a tidal volume of 400 with a FiO2 of 35% with a PEEP of 5. I switched her to a pressure support of 8 and a PEEP of 5 with an FiO2 of 35%. Her med ventilation still elevated at 13.5 L per minute. She is able to generate a tidal volume of 3 80 mL and the respiratory rate is around 33. Despite her tachypnea, she states that she is breathing comfortably. Surgical wound site over the sternum is dry clean and intact. The patient has 3 separate RAHEEM drains and output is serosanguineous at this point in time. She has a fecal management system in place with output being minimal. The patient is receiving enteral feeding via a G-tube and she is on vital high protein at the rate of 54 mL an hour and the patient is also receiving free water supplements 400 mL every 4 hours. Her sodium level is down to 148. She is also on D5 water running at 20 mL an hour. She is afebrile. Antibiotic coverage has included a combination of cefepime and daptomycin. No fever. Most recent blood cultures From 09/01/2020 and 09/02/2020 and 09/03/2020 were all negative and a sputum culture from 09/04/2020 was also negative. The chest x- ray showing some bilateral pulmonary infiltrates.. The patient is awake. She has a adequate cough at this point in time. On today's evaluation of 09/08/2020, the patient is being seen in follow-up. The patient remains off sedation and she is wide awake. She is still weak and motor weakness is been an ongoing issue. She is moving her legs and she is able to raise her feet against gravity. She also is able to get as with her hands and she is able to move her hands rather than yesterday. Nevertheless, she is unable to raise her hands of the bed and she remains in significant amount of motor weakness. Yesterday, the patient was able to tolerate a total of 8 hours a pressure support mode of ventilation with a pressure support of 8 and a PEEP of 5. This morning, she is back on assist control mode at the rate of 20 with tidal volume of 400 and FiO2 of 35% with a PEEP of 5. The blood gases from today showed a pH of 7.48 with a pCO2 of 34 and pO2 of 98. Chest x-ray shows stable bilateral pulmonary infiltrates which is essentially unchanged compared to yesterday, probably slightly better. She does have a right sided PICC line and the findings of chest x-rays are essentially stable with stable diffuse patchy bilateral pulmonary infiltrates. ET tube remains in a good location. The patient has no significant orotracheal secretions. The white cell count at 10.0. No fever. Repeat blood cultures of been negative. The sodium level is improving and the sodium level is down to 145 and the patient is getting free water flushes 400 cc every 4 hours and she is also getting IV fluid in the form of D5W at the rate of 20 mL an hour. The patient has 3 separate RAHEEM drains and output remains serosanguineous. Output is minimal at this point in time. Her antibiotic coverage remains a combination of cefepime and daptomycin. As stated, the repeat blood cultures have been essentially negative and the patient is afebrile for now. The active issue for now is the profound weakness and the weaning process. The surgical wound site is covered with a wound VAC yet she has a fecal management system with minimal amount of output for now. Repeat 2020 patient is being seen for a follow-up. Yesterday, the patient was given a spelled his breathing trial with pressure support of 12 and a PEEP of 5. She'll assess for almost an hour and following that she became more restless and agitated and accordingly the patient was started on Precedex which is currently running at 0.3 mcg/kg/h. Subsequently she was switched back on assist control mode with tidal volume of 400 FiO2 of 35% with a PEEP of 5. She ena nued to have a higher minute ventilation and a high respiratory rate. Blood gases from this morning showed a pH of 7.50 with a pCO2 of 30 and pO2 of 78 and this is consistent with primary respiratory alkalosis. Chest x-ray findings are essentially stable. She has 3 different RAHEEM drains which are draining serosanguineous material. She also has a superficial wound VAC with minimal amount of output. No fever. No chills. White cell count is at 9. Hemoglobin stable at 7.4. Renal function stable with a creatinine of 0.8. Cardiac rhythm is sinus for now. Fluid balance +128 mL over the past 24 hours. She is afebrile. She remains on a combination of cefepime and daptomycin. Neurologically, she is awake, she is raising her legs against gravity. Motor function the arms is probably stable, if anything she is able to grasp her grasping ability is improving. She does have a weak cough. She is awake and alert and shortness of breath and she follows some simple commands although her responses not consistent. She is also receiving enteral feeding for nutritional support and she is currently on vital high protein at the rate of 50 mL an hour. On 09/10/2020 the patient is being seen for a follow-up. This morning the patient is sedated. She did have a quite often yesterday. After being off sedation for quite some time, the patient became restless, tachypneic with a high minute ventilation and she was breathing quite fast. She was having a high minute ventilation on assist control volume cycle mode of mechanical ventilation and she did the same on a pressure support mode of ventilation. Ultimately, she had to be sedated and currently she is on propofol running at 40 mcg/kg per minute. She is on a mechanical ventilator and her minute ventilation has dropped considerably and her minute ventilation this morning is down to 12 and she is able to generate a tidal volume of about 400 and the respiratory rate is in the high 20s. She is on AVC plus mode with a rate of 20 and a tidal volume of 400 with a FiO2 of 35% with a PEEP of 5. Inspiratory time is at 0.8 seconds and her I:E ratio is around 1-1.5. Her chest x-ray remains unchanged with bilateral pulmonary infiltrates. Orotracheal tube is in a good location. The patient has RAHEEM drains in place and output is also serosanguineous. She is afebrile. White cell count was at 12. No significant oral secretions. Repeat cultures of been all negative and she remains on the same antibiotic coverage which is a combination of cefepime and daptomycin. Balance over the past 24 hours is -250 mL. She has adequate urine output. Renal function is stable. Pro-calcitonin level was at 0.8. She is afebrile. Her T-max of 100.6 yesterday at around 8 PM yesterday. Hemoglobin today is at 7.4. Today's evaluation of 09/11/2020, I'm seeing this patient for a follow-up. She has an extensive workup yesterday which included a CAT scan of the brain that showed no acute abnormalities. There was no enhancing intracranial lesions. There was no evidence of any acute intracranial hemorrhage or ischemic changes or mass effect. CAT scan of the surgical spine was also done and the hardware in her C-spine was noted. There was C3 through C7 hardware causing significant amount of artifact. Nevertheless, there was no evidence of any epidural abscess with understanding that the imaging was quite limited because of the hardware induced artifact. There was disc osteophyte and complex arthritis causing moderate spinal canal stenosis at the level of C3-C4 along with severe left neuroforaminal stenosis. The patient also had a CAT scan of the chest that showed patchy bilateral pulmonary infiltrates. There was no significant effusion. This is most consistent with pneumonia. Few scattered mediastinal lymphadenopathy seen. Otherwise, sputum culture is negative and the patient's white cell count is at 15.2 and she is afebrile for now. She has not spiked any temperature. On today's evaluation, she is an assist-control mode at the rate of 20 with tidal volume of 400 and FiO2 of 35% with a PEEP of 5. The blood gas showed a pH of 7.47 with a pCO2 of 36 and pO2 of 96. Peak airway pressure is 28. The patient is quite sick sinus with a mechanical ventilator. She is slightly tachycardic and she is an sinus rhythm . She is sedated with propofol which is running at 4040 mics and since we started the propofol, the patient became hypotensive and the patient is requiring norepinephrine infusion and she is very much sensitive to nor epi and currently the infusion is running at 0.08 mcg/kg per minute. Her fluid balance is adequate and the patient has been in a negative fluid balance of 900 mL over the past 24 hours. The patient was receiving Lasix 40 mg IV every 12 hours which I will back off with understanding that there is no interstitial edema and pulmonary findings are essentially consistent with pneumonia. At times of antibiotic coverage, she remains on a combination of daptomycin and cefepime for now. Enterofeeding is in the form of vital high protein at the rate of 30 mL an hour. She has well-developed stool at this point in time. Surgical wound site is dry clean and intact. The wound VAC has been removed and the underlying wound is clean. RAHEEM drains are in place Objective - Vital Signs Vital signs: Vital Signs Temp 98.9 F 09/11/20 00:00 Pulse 90 09/11/20 07:00 Resp 22 09/11/20 07:00 BP 169/85 09/11/20 06:00 Pulse Ox 99 09/11/20 07:00 Intake & Output 09/10/20 09/11/20 09/11/20 18:59 06:59 18:59 Intake Total 9789.226 9145.156 56 Output Total 2365 2200 100 Balance -507.652 -396.844 -44 Weight 85.8 kg 87.6 kg Intake: IV 476 356 23 Cefepime 2 gm In Sodium 100 100 Chloride 0.9% 100 ml @ 25 mls/hr IVPB Q12HR [facility] Rx #:[id number] DAPTOmycin 500 mg In 100 Sodium Chloride 0.9% 50 ml @ 100 mls/hr IVPB Q24HR [facility] Rx#:[id number] Dextrose 5% in Water 1, 240 220 20 000 ml @ 20 mls/hr IV . Q24H [facility] Rx#:[id number] Pressure Bag 36 36 3 Intake, IV Titration 301.348 346.156 Amount Norepinephrine 8 mg In 77.068 99.653 Sodium Chloride 0.9% 250 ml @ 0.05 MCG/KG/MIN 8. 611 mls/hr IV .Q24H [facility] Rx#:[id number] propofoL 1,000 mg In 224.280 246.503 Empty Bag 1 bag @ Titrate IV .Q0M [facility] Rx#: [id number] Tube Feeding 480 501 33 Other 600 600 Output: Drainage 60 50 RAHEEM #1. 10 RAHEEM #2 50 50 RAHEEM #3 0 Urine 1405 1650 100 Stool 900 500 Other: Voiding Method Indwelling Catheter Indwelling Catheter ABP, PAP, CO, CI - Last Documented Arterial Blood Pressure 117/48 - Exam No acute distress, currently back on sedation and the patient is currently on propofol running at 40 mcg/kg per minute HEENT examination is grossly unremarkable. Mucous membranes are moist. There is an orally placed endotracheal tube, and an orally placed OG tube. Neck supple. Full range of motion. No adenopathy thyromegaly or neck vein distention. Cardiovascular examination reveals regular rhythm rate. S1-S2 normal. No S3 or S4. A soft systolic murmur is noted, grade 2/6. Lungs reveal scattered rhonchi and crackles. Breath sounds equal bilaterally. No wheezes are appreciated. Breath sounds are diminished throughout. Exam is unchanged.. The patient has a wound VAC over the sternum and the patient also has several RAHEEM drains within the chest with serosanguineous drainage at this point in time. Note that the patient has 3 different RAHEEM drains, one on each side and one central. Output is Abdomen soft, bowel sounds are heard. No masses or tenderness. Extremities are intact. No cyanosis or clubbing. Mild edema is noted throug hout. The patient does have a right brachial arterial line, the patient has a PICC line in the right upper extremity and she also has a femoral line in her right groin. Skin reveals a dressing over the sternal wound infection.. The RAHEEM drains are all in place and output of serosanguineous at this point in time. Neurologic examination patient is sedated. She would grimace to painful stimulation. No focal neurological deficit at this point in time. Global weakness in all 4 extremities as discussed earlier. - Labs CBC & Chem 7: 09/11/20 03:50 09/11/20 03:50 Labs: Abnormal Lab Results - Last 24 Hours (Table) 09/10/20 09/10/20 09/10/20 Range/Units 11:47 17:36 23:40 WBC (3.8-10.6) k/uL RBC (3.80-5.40) m/uL Hgb (11.4-16.0) gm/dL Hct (34.0-46.0) % RDW (11.5-15.5) % Neutrophils # (1.3-7.7) k/uL ABG pH (7.35-7.45) ABG HCO3 (21-25) mmol/L ABG Total CO2 (19-24) mmol/L ABG O2 Saturation (94-97) % Sodium (137-145) mmol/L BUN (7-17) mg/dL Glucose (74-99) mg/dL POC Glucose (mg/dL) 136 H 109 H 126 H (75-99) mg/dL Alkaline Phosphatase (38-126) U/L Albumin (3.5-5.0) g/dL 09/11/20 09/11/20 09/11/20 Range/Units 03:50 03:50 04:05 WBC 13.2 H (3.8-10.6) k/uL RBC 2.58 L (3.80-5.40) m/uL Hgb 7.7 L (11.4-16.0) gm/dL Hct 23.8 L (34.0-46.0) % RDW 17.7 H (11.5-15.5) % Neutrophils # 8.9 H (1.3-7.7) k/uL ABG pH 7.47 H (7.35-7.45) ABG HCO3 26 H (21-25) mmol/L ABG Total CO2 27 H (19-24) mmol/L ABG O2 Saturation 98.7 H (94-97) % Sodium 136 L (137-145) mmol/L BUN 32 H (7-17) mg/dL Glucose 121 H (74-99) mg/dL POC Glucose (mg/dL) (75-99) mg/dL Alkaline Phosphatase 163 H (38-126) U/L Albumin 2.5 L (3.5-5.0) g/dL 09/11/20 Range/Units 05:42 WBC (3.8-10.6) k/uL RBC (3.80-5.40) m/uL Hgb (11.4-16.0) gm/dL Hct (34.0-46.0) % RDW (11.5-15.5) % Neutrophils # (1.3-7.7) k/uL ABG pH (7.35-7.45) ABG HCO3 (21-25) mmol/L ABG Total CO2 (19-24) mmol/L ABG O2 Saturation (94-97) % Sodium (137-145) mmol/L BUN (7-17) mg/dL Glucose (74-99) mg/dL POC Glucose (mg/dL) 132 H (75-99) mg/dL Alkaline Phosphatase (38-126) U/L Albumin (3.5-5.0) g/dL Microbiology - Last 24 Hours (Table) 09/08/20 Unknown Catheter Tip Culture - Final Catheter Tip 09/07/20 09:27 Blood Culture - Preliminary Blood No Growth after 72 hours Assessment and Plan Plan: 1 Acute hypoxemic and hypercapnic respiratory failure, secondary to incisional wound infection, with methicillin sensitive staph aureus, as well as pneumonia, and bilateral pleural effusions. The follow-up cultures as of 09/02/2020 were all negative and the patient remains on a combination of cefepime and daptomycin for now. Chest x-ray findings are stable with bilateral pulmonary infiltrates and interstitial infiltrates and small effusions. I performed a computed tomography scan of the chest that showed patchy right upper pulmonary infiltrates most consistent with pneumonia and unlikely to be related to any fluid. Consider staphylococcal pneumonia. The patient is afebrile. Oxidation is stable with a 35% FiO2. She is an assist-control mode of ventilation, volume cycle in FVC plus mode. Chest x-ray findings are stable for now. No significant orotracheal secretions. Chest x-ray was noted. Blood gases was noted. 2 Postop day #7, status post excision of sternal wound, right pectoralis major myocutaneous flap, and left pectoralis major myocutaneous flap. Output is serosanguineous, the output is serosanguineous and clear and the wound VAC is minimal an underlying wound is dry clean and intact. 3 Status post readmission on August 22, and intubation for respiratory failure on 08/25/2020 and the patient continues to be intubated for now. 4 Sepsis, secondary to sternal wound infection, caused by methicillin sensitive staph aureus, with bacteremia. Repeat cultures are all negative and the patient remains on adequate antibiotic coverage for now. the patient had a low-grade fever yesterday which recovered and currently is afebrile and the patient is somewhat hypotensive and this issue surfaced after the patient was started back on sedation and she is currently on norepinephrine infusion running at 0.08 mg/kg/m. I'm hoping that this will be gradually weaned off over the next 24 hours. 5 Septic shock, secondary to sternal wound infection. The patient is currently on no pressors 6 Acute kidney injury, recovered 7 Acute metabolic acidosis, secondary to acute kidney injury, recovered 8 Acute diastolic CHF with bilateral pleural effusions. 9 History of hypertension. 10 History of cervical stenosis and the patient has other to severe cervical spine stenosis at the level of C3-C4 with osteophyte formation. She also has moderate stenosis at the level of C6-C7 sodium Hardware is in place and there was no evidence of any epidural abscess for now based on the CAT scan noted from yesterday and this was CAT scan of the cervical spine.. 11 Primary history of tobacco use. 12 Mild pulmonary fibrosis/interstitial lung disease. 13 Status post sternal exploration with sternal debridement, August 27. 14 Recent prior history of two-vessel bypass grafting, on August 10, with discharge on August 19. 15 Hypernatremia, recovered and the patient's sodium level has normalized. 16 enteral feeding for nutritional support and she is able to tolerate. Plan: Continue propofol for now, given a sedation holiday and assess the patient's mental status and check weaning parameters CAT scan of the brain, no stroke, no acute abnormalities CAT scan of the chest showed bilateral patchy pulmonary infiltrates consistent with pneumonia Drop down the Lasix to 40 mg every 24 hours Wean off the pressors Continue enteral feeding for nutritional support continue cefepime and daptomycin Surgical follow-up on the wound and the RAHEEM drains VAC is removed We'll may be headed hours tracheostomy tube insertion due to prolonged respiratory failure and difficulties in weaning secondary to above-mentioned comorbidities. We'll continue following this patient with aggressive the consultants. Critical care evaluation that was done and more bertha 30 minutes Time with Patient: Greater than 30
[2020-09-11] MEDS: DAPTOmycin 500 MG in SODIUM CHLORIDE 0.9% 50 ML IVPB SCH (08:43)
[2020-09-11] MEDS: CEFEPIME 2 GM in SODIUM CHLORIDE 0.9% 100 ML IVPB SCH ×2 (08:43→20:59)
[2020-09-11] MEDS: ASPIRIN 325 MG TAB PO SCH (08:44)
[2020-09-11] MEDS: CHLORHEXIDINE GLUCONATE 15 ML CUP MUCOUS MEM SCH ×2 (08:44→20:58)
[2020-09-11] MEDS: HEPARIN SODIUM,PORCINE 5,000 UNIT/ML 1 ML VIAL SQ SCH ×2 (08:44→15:15)
[2020-09-11] MEDS: FUROSEMIDE 10 MG/ML 4 ML VIAL IV SCH (08:44)
[2020-09-11] MEDS: PANTOPRAZOLE 40 MG/10 ML VIAL IVP SCH (08:44)
[2020-09-11] MEDS: METOPROLOL TARTRATE 50 MG TAB PO SCH ×2 (08:44→20:58)
[2020-09-11] MEDS: CLOPIDOGREL 75 MG TAB PO SCH (08:44)
[2020-09-11] MEDS: DRY MOUTH SPRAY 44.3 SPRAY/44.3 ML SPRAY MUCOUS MEM SCH ×4 (08:45→23:00)
--- NOTE | 2020-09-11 09:15 | P.PN ---
Subjective HPI: This is a 75-year-old female past medical history significant for hypertension, hyperlipidema, pulmonary fibrosis, asthma, obesity, former smoker with smoking 32 years ago, osteoarthritis, cervical stenosis post anterior cervical decompression, discectomy and fusion, TIA as child at age 11. Over the past 6 months patient was episodes of shortness of breath and lower extremity edema. She underwent a stress test which showed anterior wall ischemia with small reversible defect. a 2-D echocardiogram which showed mild aortic valve insufficiency, mild mitral valve regurgitation, mild tricuspid valve regurgitation and left ventricular function to be normal with an ejection fraction of 55%. Subsequently she underwent an elective heart catheterization on 07/27/2020 which demonstrated a left main stenosis, a 40% stenosis to her mid left anterior descending coronary artery and a 30% stenosis to her right coronary artery. Due to the patient's symptoms and findings on her heart catheterization of left main stenosis a consult was placed to Dr. Sethi from cardiothoracic surgery for further evaluation and treatment recommendations.She was admitted to the hospital from 08/06/20-08/19/20 for hyponatremia and underwent double vessel coronary artery bypass graft on 08/10/2020. She is now readmitted on 08/22/20 with respiratory failure, evidence of pneumonia, and evidence of pneumonia and dehiscense of her sternal wound. tr ansferred to ICU on 08/24. On 08/25, patient had an episode of Afib with RVR intermittently and her dose of lopressor was increaed to 25mg every 8 hours. On 08/26, patient was intubated and placed on mechanical ventilation overnight and did have atrial flutter alternating with sinus rhythm. On 08/27 she underwent debridement. 09/03 patient underwent excision of sternal wound, partial sternotomy with placement of a pectoralis flap. 09/09/2020 Patient seen and examined. Patient remains on ventilator with a FiO2 40%, PEEP of 5 with a spontaneous breathing trial. Patient is still tachypnic and very weak with inability to move her upper extremities and neck much. Her sodium has improved to 141 today. She has good urine output with the Lasix however then urine output tapers off. She is up approximately 100 mL or last 24 hours. 09/10/2020 Patient seen and examined. Patient still remains very weak. Patient has not been passing her spontaneous breathing trials. She was placed on a low-dose of norepinephrine. Lasix was increased to twice a day yesterday and sodium this morning has remained stable at 138. Hemoglobin remains stable at 7.4, mild increase in white blood cell count 12.5. 09/11/20 Patient seen and examined. Patient still very weak and minimally responsive on ventilator. Remains on a low-dose of norepinephrine. Patient receiving Lasix 40 mg IV daily. Sodium remained stable at 136. PHYSICAL EXAMINATION GEN: Patient in ICU bed, appears comfortable, anxious, on vent HEENT: Patient intubated and on mechanical ventilation CHEST EXAMINATION: Lungs are diminished to auscultation anteriorly . HEART EXAMINATION: Regular rate and rhythm. S1, S2 heard. No murmurs, gallops or rub. ABDOMEN: Soft, Positive bowel sounds. EXTREMITIES: 2+ edema in bilateral hands R >L, 1+ bilateral pitting edema lower extremities. NEUROLOGIC EXAMINATION: Patient is somnolent, unresponsive, eyes open ASSESSMENT Acute hypoxemica Respiratory failure s/p coronary artery bypass grafting Acute on chronic diastolic heart failure- EF 55%, mild aortic regurgitation, mild mitral regurgitation, mild tricuspid regurgitation Wound dehiscense s/p debridement and excision and placement of pectoralis muscle flap Acute Kidney Injury- renal function now back to baseline Hypernatremia - improved Coronary artery disease- s/p CABG performed on 08/10/20 Sepsis with septic shock, with MSSA bacteremia with sternal wound dehiscence s/p sternal exploration, sternal debridement on 08/27. s/p Exicion of sternal wound, partial sternotomy, pectoralis flap on 09/03 Acute blood loss anemia- s/p 2 unit on 09/05/20 History of Hypertension- currently hypotensive on low-dose norepinephrine likely related to sedation History of Hyperlipidemia Altered mental status, extreme weakness, questionable ICU myopathy, ICU delirium versus other Hypotension, suspect mainly related to sedation plus or minus component of sepsis PLAN -Continue dual-antiplatelet therapy aspirin daily, Plavix daily -Continue beta sisi: Metoprolol 50 mg BID as tolerated. -Majority of anasarca likely related to protein calorie malnutrition. Continue supportive care. Await further neurologic workup. Objective - Vital Signs Vital signs: Vital Signs Temp 99 F 09/11/20 04:00 Pulse 112 H 09/11/20 07:52 Resp 22 09/11/20 07:00 BP 169/85 09/11/20 06:00 Pulse Ox 99 09/11/20 07:00 Intake & Output 09/10/20 09/11/20 09/11/20 18:59 06:59 18:59 Intake Total 5513.553 0183.156 106.107 Output Total 2365 2200 100 Balance -507.652 -396.844 6.107 Weight 85.8 kg 87.6 kg Intake: IV 476 356 23 Cefepime 2 gm In Sodium 100 100 Chloride 0.9% 100 ml @ 25 mls/hr IVPB Q12HR [facility] Rx #:[id number] DAPTOmycin 500 mg In 100 Sodium Chloride 0.9% 50 ml @ 100 mls/hr IVPB Q24HR [facility] Rx#:[id number] Dextrose 5% in Water 1, 240 220 20 000 ml @ 20 mls/hr IV . Q24H [facility] Rx#:[id number] Pressure Bag 36 36 3 Intake, IV Titration 301.348 346.156 50.107 Amount Norepinephrine 8 mg In 77.068 99.653 Sodium Chloride 0.9% 250 ml @ 0.05 MCG/KG/MIN 8. 611 mls/hr IV .Q24H [facility] Rx#:[id number] propofoL 1,000 mg In 224.280 246.503 50.107 Empty Bag 1 bag @ Titrate IV .Q0M [facility] Rx#: [id number] Tube Feeding 480 501 33 Other 600 600 Output: Drainage 60 50 RAEHEM #1. 10 RAHEEM #2 50 50 RAHEEM #3 0 Urine 1405 1650 100 Stool 900 500 Other: Voiding Method Indwelling Catheter Indwelling Catheter ABP, PAP, CO, CI - Last Documented Arterial Blood Pressure 117/48 - Labs CBC & Chem 7: 09/11/20 03:50 09/11/20 03:50 Labs: Abnormal Lab Results - Last 24 Hours (Table) 09/10/20 09/10/20 09/10/20 Range/Units 11:47 17:36 23:40 WBC (3.8-10.6) k/uL RBC (3.80-5.40) m/uL Hgb (11.4-16.0) gm/dL Hct (34.0-46.0) % RDW (11.5-15.5) % Neutrophils # (1.3-7.7) k/uL ABG pH (7.35-7.45) ABG HCO3 (21-25) mmol/L ABG Total CO2 (19-24) mmol/L ABG O2 Saturation (94-97) % Sodium (137-145) mmol/L BUN (7-17) mg/dL Glucose (74-99) mg/dL POC Glucose (mg/dL) 136 H 109 H 126 H (75-99) mg/dL Alkaline Phosphatase (38-126) U/L Albumin (3.5-5.0) g/dL 09/11/20 09/11/20 09/11/20 Range/Units 03:50 03:50 04:05 WBC 13.2 H (3.8-10.6) k/uL RBC 2.58 L (3.80-5.40) m/uL Hgb 7.7 L (11.4-16.0) gm/dL Hct 23.8 L (34.0-46.0) % RDW 17.7 H (11.5-15.5) % Neutrophils # 8.9 H (1.3-7.7) k/uL ABG pH 7.47 H (7.35-7.45) ABG HCO3 26 H (21-25) mmol/L ABG Total CO2 27 H (19-24) mmol/L ABG O2 Saturation 98.7 H (94-97) % Sodium 136 L (137-145) mmol/L BUN 32 H (7-17) mg/dL Glucose 121 H (74-99) mg/dL POC Glucose (mg/dL) (75-99) mg/dL Alkaline Phosphatase 163 H (38-126) U/L Albumin 2.5 L (3.5-5.0) g/dL 09/11/20 Range/Units 05:42 WBC (3.8-10.6) k/uL RBC (3.80-5.40) m/uL Hgb (11.4-16.0) gm/dL Hct (34.0-46.0) % RDW (11.5-15.5) % Neutrophils # (1.3-7.7) k/uL ABG pH (7.35-7.45) ABG HCO3 (21-25) mmol/L ABG Total CO2 (19-24) mmol/L ABG O2 Saturation (94-97) % Sodium (137-145) mmol/L BUN (7-17) mg/dL Glucose (74-99) mg/dL POC Glucose (mg/dL) 132 H (75-99) mg/dL Alkaline Phosphatase (38-126) U/L Albumin (3.5-5.0) g/dL Microbiology - Last 24 Hours (Table) 09/08/20 Unknown Catheter Tip Culture - Final Catheter Tip 09/07/20 09:27 Blood Culture - Preliminary Blood No Growth after 72 hours
--- NOTE | 2020-09-11 09:16 | XR ---
EXAMINATION TYPE: XR chest 1V portable DATE OF EXAM: 09/11/2020 COMPARISON: Chest x-ray 09/10/2020 HISTORY: Postop coronary artery bypass graft TECHNIQUE: Single frontal view of the chest is obtained. FINDINGS: Findings are essentially stable. IMPRESSION: Correlate for pneumonia, congestive heart failure and pulmonary edema, ARDS
--- NOTE | 2020-09-11 10:12 | P.PN ---
Subjective Patient is seen in follow-up for acute kidney injury. Renal function back to baseline. Nonoliguric. Maintained on IV Lasix. Also receiving tube feeding. Currently on 35% FiO2. Difficult to wean. Remains on Levophed. Vital signs: Stable. On vasopressor support. HEENT: Intubated. LUNGS: Breath sounds decreased. HEART: Tachycardic. ABDOMEN: Soft, no distention noted. EXTREMITITES: Trace edema. Objective - Vital Signs Vital signs: Vital Signs Temp 99.8 F H 09/11/20 08:00 Pulse 97 09/11/20 09:00 Resp 25 H 09/11/20 09:00 BP 169/85 09/11/20 06:00 Pulse Ox 97 09/11/20 09:00 Intake & Output 09/10/20 09/11/20 09/11/20 18:59 06:59 18:59 Intake Total 9838.605 7232.156 558.107 Output Total 2365 2200 280 Balance -507.652 -396.844 278.107 Weight 85.8 kg 87.6 kg Intake: IV 476 356 209 Cefepime 2 gm In Sodium 100 100 100 Chloride 0.9% 100 ml @ 25 mls/hr IVPB Q12HR [facility] Rx #:[id number] DAPTOmycin 500 mg In 100 50 Sodium Chloride 0.9% 50 ml @ 100 mls/hr IVPB Q24HR [facility] Rx#:[id number] Dextrose 5% in Water 1, 240 220 40 000 ml @ 20 mls/hr IV . Q24H [facility] Rx#:[id number] Pressure Bag 36 36 9 Sodium Chloride 0.9% 1, 10 000 ml @ 10 mls/hr IV . Q24H [facility] Rx#:[id number] Intake, IV Titration 301.348 346.156 50.107 Amount Norepinephrine 8 mg In 77.068 99.653 Sodium Chloride 0.9% 250 ml @ 0.05 MCG/KG/MIN 8. 611 mls/hr IV .Q24H [facility] Rx#:[id number] propofoL 1,000 mg In 224.280 246.503 50.107 Empty Bag 1 bag @ Titrate IV .Q0M [facility] Rx#: [id number] Tube Feeding 480 501 99 Other 600 600 200 Output: Drainage 60 50 25 RAHEEM #1. 10 RAHEEM #2 50 50 25 RAHEEM #3 0 0 Urine 1405 1650 255 Stool 900 500 Other: Voiding Method Indwelling Catheter Indwelling Catheter Indwelling Catheter ABP, PAP, CO, CI - Last Documented Arterial Blood Pressure 128/49 - Labs CBC & Chem 7: 09/11/20 03:50 09/11/20 03:50 Labs: Abnormal Lab Results - Last 24 Hours (Table) 09/10/20 09/10/20 09/10/20 Range/Units 11:47 17:36 23:40 WBC (3.8-10.6) k/uL RBC (3.80-5.40) m/uL Hgb (11.4-16.0) gm/dL Hct (34.0-46.0) % RDW (11.5-15.5) % Neutrophils # (1.3-7.7) k/uL ABG pH (7.35-7.45) ABG HCO3 (21-25) mmol/L ABG Total CO2 (19-24) mmol/L ABG O2 Saturation (94-97) % Sodium (137-145) mmol/L BUN (7-17) mg/dL Glucose (74-99) mg/dL POC Glucose (mg/dL) 136 H 109 H 126 H (75-99) mg/dL Alkaline Phosphatase (38-126) U/L Albumin (3.5-5.0) g/dL 09/11/20 09/11/20 09/11/20 Range/Units 03:50 03:50 04:05 WBC 13.2 H (3.8-10.6) k/uL RBC 2.58 L (3.80-5.40) m/uL Hgb 7.7 L (11.4-16.0) gm/dL Hct 23.8 L (34.0-46.0) % RDW 17.7 H (11.5-15.5) % Neutrophils # 8.9 H (1.3-7.7) k/uL ABG pH 7.47 H (7.35-7.45) ABG HCO3 26 H (21-25) mmol/L ABG Total CO2 27 H (19-24) mmol/L ABG O2 Saturation 98.7 H (94-97) % Sodium 136 L (137-145) mmol/L BUN 32 H (7-17) mg/dL Glucose 121 H (74-99) mg/dL POC Glucose (mg/dL) (75-99) mg/dL Alkaline Phosphatase 163 H (38-126) U/L Albumin 2.5 L (3.5-5.0) g/dL 09/11/20 Range/Units 05:42 WBC (3.8-10.6) k/uL RBC (3.80-5.40) m/uL Hgb (11.4-16.0) gm/dL Hct (34.0-46.0) % RDW (11.5-15.5) % Neutrophils # (1.3-7.7) k/uL ABG pH (7.35-7.45) ABG HCO3 (21-25) mmol/L ABG Total CO2 (19-24) mmol/L ABG O2 Saturation (94-97) % Sodium (137-145) mmol/L BUN (7-17) mg/dL Glucose (74-99) mg/dL POC Glucose (mg/dL) 132 H (75-99) mg/dL Alkaline Phosphatase (38-126) U/L Albumin (3.5-5.0) g/dL Microbiology - Last 24 Hours (Table) 09/08/20 Unknown Catheter Tip Culture - Final Catheter Tip 09/07/20 09:27 Blood Culture - Preliminary Blood No Growth after 72 hours Assessment and Plan Plan: Assessment: 1. Acute kidney injury secondary to ATN secondary to hypotension/sepsis on admission and then from nafcillin. Baseline creatinine near 1. She did require hemodialysis earlier this admission has subsequently recovered kidney function. Creatinine 0.86 today. 2. Volume overload. Improving with diuresis. 3. Hypernatremia from lack of oral water intake. Resolved. 4. Wound dehiscence of the sternum with MSSA bacteremia. On antibiotics. Also underwent sternal debridement this admission. 5. Acute hypoxia respiratory failure. Currently on 35% FiO2. 6. Status post CABG in 08/10/2020. 7. Acute blood loss anemia requiring multiple blood transfusions this a dmission. Also on Aranesp. 8. Hypokalemia from diuresis. Replaced. Plan: Lasix decreased to 40 mg IV once daily. Maintain tube feeding - stop free water flushes. Continue to monitor renal function and urine output. Wean FiO2.
--- NOTE | 2020-09-11 10:22 | P.PN ---
Subjective Progress Note Date: 09/11/20 Principal diagnosis: Shortness of breath, acute diastolic heart failure, bilateral pleural effusion, lactic acidosis, hypercapnic respiratory failure requiring BiPAP followed by me chanical ventilation, deep sternal wound infection with MSSA, acute kidney injury, acute hyperkalemia, hyponatremia, acute transaminitis, hypotension requiring vasopressors use, acute anemia. Past medical history significant for coronary artery disease with left main stenosis status post 2 vessel CABG on 08/10/2020 with expected postoperative acute blood loss anemia, hypotension, and urinary retention as well as candidal stomatititus, hyponatremia, pulmonary fibrosis, asthma, hypertension, hyperlipidemia, previous tobacco dependence, obesity, osteoarthritis, cervical stenosis post anterior cervical disc decompression, discectomy and fusion, TIA as a child, family history of premature coronary artery disease. Paroxysmal Afib with RVR. POD #14 sternal exploration with sternal debridement. POD #8 removal of table and partial resection of the manubrium as well as partial sternectomy by Dr. Sethi, right pectoralis major myocutaneous flap, left pectoralis major myocutaneous flap by Dr. Whittaker. The patient was seen in follow-up today 09/11/2020 at her bedside in the intensive care unit. Currently she remain sedated on propofol at 40 mcg/kg/m, remains intubated with mechanical ventilator support. Current mechanical ventilator settings are assist control 20, PC +404/0.80, FiO2 35% and a PEEP of 5. Oxygen saturations on current mechanical ventilator settings are 98%. ABG results this morning show a pH of 7.47, pCO2 36, pO2 96, HCO3 26, 98.7 oxygen saturation, base excess 2.2. Her T-max temperature in the last 24 hours is 99.4F. Bedside telemetry currently showing sinus tachycardia heart rate 112 bpm. Norepinephrine drip remains in place at 0.08 mcg/kg/m for blood pressure support. Laboratory results this morning show a WBC count 13.2, hemoglobin 7.7, platelets 428, sodium 136, potassium 3.9, BUN 32, creatinine 0.86, AST 31 and ALT 26. A computed tomography scan of her cervical spine was done yesterday with C3 through C7 hardware causing significant amount of artifact. There is no evidence of epidural abscess, but was limited due to the artifact induced by her hardware. Also there was disc osteophyte and complex arthritis causing moderate spinal canal stenosis at the level of C3-C4 along with severe left neuroforaminal stenosis. A computed tomography scan of her chest was also completed which demonstrated large bilateral pulmonary focal infiltrates with few scattered mediastinal lymphadenopathy present. The CAT scan of her brain showed no acute abnormalities. Prevena dressing was removed from her sternal incision yesterday as she was postoperative day #7, and her sternal incision is clean dry and approximated with franc in place. No drainage or redness is present. She remains on daptomycin and cefepime for antibiotic coverage which is managed by infectious disease. Blood cultures from 09/01/2020, 09/02/2020, 09/03/2020 and 09/07/2020 SHOWING no growth. Central line catheter tip sent for culture on 09/08/2020 after 48 hours shows no growth. OG tube remains in place with continuous tube feeding of vital high-protein infusing at goal rate of 33 mL per hour, and automatic water flushes 30 mL every 4 hours. Yu catheter for accurate I&O, draining clear yellow urine with 1045 mL output in the last 8 hours. Objective - Vital Signs Vital signs: Vital Signs Temp 99.8 F H 09/11/20 08:00 Pulse 97 09/11/20 09:00 Resp 25 H 09/11/20 09:00 BP 169/85 09/11/20 06:00 Pulse Ox 97 09/11/20 09:00 Intake & Output 09/10/20 09/11/20 09/11/20 18:59 06:59 18:59 Intake Total 3290.926 6594.156 558.107 Output Total 2365 2200 280 Balance -507.652 -396.844 278.107 Weight 85.8 kg 87.6 kg Intake: IV 476 356 209 Cefepime 2 gm In Sodium 100 100 100 Chloride 0.9% 100 ml @ 25 mls/hr IVPB Q12HR [facility] Rx #:[id number] DAPTOmycin 500 mg In 100 50 Sodium Chloride 0.9% 50 ml @ 100 mls/hr IVPB Q24HR [facility] Rx#:[id number] Dextrose 5% in Water 1, 240 220 40 000 ml @ 20 mls/hr IV . Q24H [facility] Rx#:[id number] Pressure Bag 36 36 9 Sodium Chloride 0.9% 1, 10 000 ml @ 10 mls/hr IV . Q24H [facility] Rx#:[id number] Intake, IV Titration 301.348 346.156 50.107 Amount Norepinephrine 8 mg In 77.068 99.653 Sodium Chloride 0.9% 250 ml @ 0.05 MCG/KG/MIN 8. 611 mls/hr IV .Q24H [facility] Rx#:[id number] propofoL 1,000 mg In 224.280 246.503 50.107 Empty Bag 1 bag @ Titrate IV .Q0M [facility] Rx#: [id number] Tube Feeding 480 501 99 Other 600 600 200 Output: Drainage 60 50 25 RAHEEM #1. 10 RAHEEM #2 50 50 25 RAHEEM #3 0 0 Urine 1405 1650 255 Stool 900 500 Other: Voiding Method Indwelling Catheter Indwelling Catheter Indwelling Catheter ABP, PAP, CO, CI - Last Documented Arterial Blood Pressure 128/49 - Constitutional Constitutional Comment(s): The patient is a 75-year-old female patient who is currently sedated with propofol drip at 40 mcg/kg/m, remains intubated with mechanical ventilator support. Is not following any verbal commands at this time. - EENT Eyes: Present: PERRLA, normal appearance. Absent: scleral icterus - Neck Details: Neck is supple, no JVD, no lymphadenopathy. - Respiratory Details: Lung sounds with some faint scattered rhonchi throughout, diminished bilateral bases. Respirations are symmetrical and nonlabored. Remains intubated with mechanical ventilator support. Current mechanical ventilator settings are assist control 20, VC +400/0.80, FiO2 35% and a PEEP of 5. Oxygen saturation is 98% on current mechanical valve at her settings. - Cardiovascular Details: Regular rhythm and tachycardic rate. S1 and S2 present, negative for S3, gallop or murmur. Bedside telemetry showing sinus tachycardia heart rate 112 bpm. +1 generalized edema. Heart hugger is in place. Knee-high ANGEL hose and sequential compression devices in place were bilateral lower extremities. Right arm PICC line remains in place and functioning. Norepinephrine drip currently infusing at 0.08 mcg/kg/m. - Gastrointestinal Gastrointestinal Comment(s): Abdomen is soft, and nondistended. Active bowel sounds present in all 4 abdominal quadrants. No guarding or rigidity. OG tube in place with continuous tube feedings of vital high-protein infusing at goal rate of 33 mL per hour with automatic water flushes 30 mL every 4 hours. Fecal management system remains in place with liquid brown stool. - Genitourinary Genitourinary Comment(s): Yu catheter for accurate I&O. Draining clear yellow urine. 1045 mL output in the last 8 hours. - Integumentary Integumentary Comment(s): Skin is warm and dry. No clubbing or cyanosis is present. Midline sternal incision is clean, dry and approximated. Dalbo in place. No drainage or redness. Gauze dressing is clean, dry and in place. Left lower extremity EVH site is clean, dry and approximated. - Neurologic Neurologic Comment(s): Unable to accurately assess at this time as the patient is sedated on propofol drip at 40 mcg/kg/m. Will occasionally over upper eyes with verbal stimuli. - Musculoskeletal Musculoskeletal Comment(s): Unable to accurately assess at this time as the patient is sedated on propofol drip at 40 mcg/kg/m. - Psychiatric Psychiatric Comment(s): Unable to accurately assess at this time as the patient is sedated on propofol drip at 40 mcg/kg/m. Patient is not following any verbal commands at this time. - Labs CBC & Chem 7: 09/11/20 03:50 09/11/20 03:50 Labs: Abnormal Lab Results - Last 24 Hours (Table) 09/10/20 09/10/20 09/10/20 Range/Units 11:47 17:36 23:40 WBC (3.8-10.6) k/uL RBC (3.80-5.40) m/uL Hgb (11.4-16.0) gm/dL Hct (34.0-46.0) % RDW (11.5-15.5) % Neutrophils # (1.3-7.7) k/uL ABG pH (7.35-7.45) ABG HCO3 (21-25) mmol/L ABG Total CO2 (19-24) mmol/L ABG O2 Saturation (94-97) % Sodium (137-145) mmol/L BUN (7-17) mg/dL Glucose (74-99) mg/dL POC Glucose (mg/dL) 136 H 109 H 126 H (75-99) mg/dL Alkaline Phosphatase (38-126) U/L Albumin (3.5-5.0) g/dL 09/11/20 09/11/20 09/11/20 Range/Units 03:50 03:50 04:05 WBC 13.2 H (3.8-10.6) k/uL RBC 2.58 L (3.80-5.40) m/uL Hgb 7.7 L (11.4-16.0) gm/dL Hct 23.8 L (34.0-46.0) % RDW 17.7 H (11.5-15.5) % Neutrophils # 8.9 H (1.3-7.7) k/uL ABG pH 7.47 H (7.35-7.45) ABG HCO3 26 H (21-25) mmol/L ABG Total CO2 27 H (19-24) mmol/L ABG O2 Saturation 98.7 H (94-97) % Sodium 136 L (137-145) mmol/L BUN 32 H (7-17) mg/dL Glucose 121 H (74-99) mg/dL POC Glucose (mg/dL) (75-99) mg/dL Alkaline Phosphatase 163 H (38-126) U/L Albumin 2.5 L (3.5-5.0) g/dL 09/11/20 Range/Units 05:42 WBC (3.8-10.6) k/uL RBC (3.80-5.40) m/uL Hgb (11.4-16.0) gm/dL Hct (34.0-46.0) % RDW (11.5-15.5) % Neutrophils # (1.3-7.7) k/uL ABG pH (7.35-7.45) ABG HCO3 (21-25) mmol/L ABG Total CO2 (19-24) mmol/L ABG O2 Saturation (94-97) % Sodium (137-145) mmol/L BUN (7-17) mg/dL Glucose (74-99) mg/dL POC Glucose (mg/dL) 132 H (75-99) mg/dL Alkaline Phosphatase (38-126) U/L Albumin (3.5-5.0) g/dL Microbiology - Last 24 Hours (Table) 09/08/20 Unknown Catheter Tip Culture - Final Catheter Tip 09/07/20 09:27 Blood Culture - Preliminary Blood No Growth after 72 hours - Imaging and Cardiology Chest x-ray: report reviewed, image reviewed CT scan - chest: report reviewed, image reviewed CT Scan - head: report reviewed, image reviewed Assessment and Plan Assessment: 1. Shortness of breath, acute diastolic heart failure, EF 55-60% on current TTE, bilateral pleural effusions 2. Lactic acidosis, septic shock, blood cultures positive for MSSA 3. Hypercapnic, hypoxic respiratory failure requiring BiPAP, with subsequent intubation and mechanical ventilation 4. Open sternal wound, surgically created, deep sternal wound infection with MSSA, S/P surgical exploration and debridement with daily dressing changes 5. Leukocytosis with bandemia, bandemia , WBC trending down 6. Acute kidney injury, metabolic acidosis, metabolic acidosis resolved, kidney function returning to normal after receiving dialysis 7. Acute hyperkalemia, resolved 8. Acute transaminitis secondary to hypoperfusion, resolved 9. History of hypertension, hypotensive this admission requiring vasopressors 10. Acute anemia, post transfusion PRBCs, on 11. Coronary artery disease with left main stenosis status post 2 vessel CABG on 08/10/2020 with expected postoperative acute blood loss anemia, hypotension, and urinary retention as well as candidal stomatititus 12. Hyponatremia, resolved 13. Pulmonary fibrosis, asthma 14. Hyperlipidemia, treated 15. Previous tobacco dependence 16. Obesity 17. Paroxysmal afib w/ RVR, atrial flutter, status post exclusion of the left atrial appendage using a 35 mm AtriClip, currently sinus rhythm 18. 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 Ventilator management per pulmonary medicine. Mechanical ventilator weaning trial management per pulmonary/critical care medicine recommendations. 2. Nephrology following, avoid nephrotoxins, diuretic management per nephrology recommendations. Lasix 40 mg IV daily. 3. Infectious disease following, blood cultures from 09/01/2020, 09/02/2020, and 09/07/2020 currently show no growth. Sputum culture from 09/04/2020 final result shows no growth. Central catheter tip from the right femoral shows no growth after 48 hours. Remains on antibiotic coverage of cefepime and daptomycin. Previous blood, sputum and sternal wound cultures showed positive for MSSA. T-max temperature in the last 24 hours is 99.4 F. 4. Continue aspirin, Plavix, , statin and beta sisi. We will increase metoprolol tartrate as tolerated. currently on metoprolol tartrate 50 mg by mouth twice a day. 5. No anticoagulation at this time. 6. Will continue to monitor daily labs, chest x-rays, and ABGs. 7. 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 Currently sedated on propofol drip at 40 mcg/kg/m. Per pulmonary/critical care management she will be given a sedation holiday today. 8. GI/DVT prophylaxis. 9. Continue tube feeding for nutrition, per dietitian recommendations. Currently at goal rate of 33 mL per hour vital high-AF with automatic water flushes 30 mL every 4 hours. 10. Patient's daughter Roberta updated on her care per phone. 11. Replace electrolytes per protocol. 12. Prevena dressing was removed yesterday, currently has gauze dressing clean dry and intact. Daily dressing change. Continue to monitor RAHEEM drains. 13. Continue to follow culture results. 14. More recommendations to follow based on patient's clinical course. Time with Patient: Greater than 30
[2020-09-11 11:54] LABS: Glucose,Whole Blood 124 mg/dL (75-99)
--- NOTE | 2020-09-11 12:48 | P.PN ---
Subjective Progress Note Date: 09/11/20 HISTORY OF PRESENT ILLNESS This is a 75-year-old female patient of Dr. Rich Avila, Dr. Sloan and Dr. Guadalupe. She has a past medical history significant for hypertension, hype rlipidemia, pulmonary fibrosis, asthma, obesity, remote history of tobacco dependence with smoking 32 years ago, osteoarthritis, cervical stenosis post anterior cervical decompression, discectomy and fusion, TIA as a child at age 11 and family history of premature coronary artery disease with her father being diagnosed in his early 50s. Recently, the patient has been experiencing episodes of shortness of breath over the past 6 months with just minimal activity. She also complained of some lower extremity swelling which did resolve with some diuresis. she underwent a stress test which showed anterior wall ischemia with small reversible defect. a 2-D echocardiogram which showed mild aortic valve insufficiency, mild mitral valve regurgitation, mild tricuspid valve regurgitation and left ventricular function to be normal with an ejection fraction of 55%. Subsequently she underwent an elective heart catheterization on 07/27/2020 which demonstrated a left main stenosis with QING with a calculation of 2.6 mm, a 40% stenosis to her mid left anterior descending coronary artery and a 30% stenosis to her right coronary artery. Due to the patient's symptoms and findings on her heart catheterization of left main stenosis a consult was placed to Dr. Sethi from cardiothoracic surgery for further evaluation and treatment recommendations. During her preoperative workup her serum sodium level was found to be 120 and was admitted prior to surgery for treatment of hyponatremia. Last admission On 08/06/2020-08/19/20 the patient was admitted to the hospital for treatment of her hyponatremia, and once her hyponatremia was resolved on 08/10/2020, asubsequently taken to the operating room where Dr. Sethi performed a double vessel coronary artery bypass grafting surgery using the left internal mammary artery to left anterior setting coronary artery, a reverse greater saphenous vein graft from the aorta to the first obtuse marginal coronary artery, endoscopic harvesting of the left greater saphenous vein from the groin Upon completion of the surgery the patient was transferred to the intensive care unit where she was recovered, monitored hemodynamically and where she progressed cardiac rehabilitation phase Her oxygen was titrated down, she continued to work with physical/occupational therapy and cardiac rehabilitation, she was tolerating an oral diet, her pain was well controlled without narcotics and she was ready to be discharged home with [facility] care on postoperative day #9. Did not require home O2 on last admission however she required new medication changes including diuretics during that last admission. Patient comes in in worsening shortness of breath anasarca, no chest pain, has BARKER, edma without leg pain new medications from last visit was compliant, requiring lipitor 75bid, tolvaptan. meotprolol 75 bid plavix, lasix 40 mg daily losartain 25 asa 325, ferrous sulfate and fluconazole. patient comes in now for CHF, anarsarc ely pleural effusion, consult with dr Sethi. and cardiology, if okay will be cardiothoracic surgeon can also perform the thoracentesis, however with hypoxemia, also have requested Dr. Gamboa's services. Patient has a hemoglobin of 7.0 on and 3, platelet count of 305, hemoglobin right to admission was 8.0 denies any Hemoccult stools, creatinine was 1.60 from a previous of 0.9 blood pressure is in the low 90s systolic, pulse ox, 90 on 4 L nasal cannula, patient was not discharged with home O2 during her last admission 08/24: A-Team was called for mental status changes. Patient was found to have a blood pressure 99/65, heart rate of 85 and pulse ox of 96% on a nonrebreather with respiratory rate of 32. Patient was transferred to the ICU. She was started on vancomycin and cefepime. Patient has been seen by cardiology with plan to continue vasopressor support, patient may need pleurocentesis. Stat echocardiogram was done to rule out pericardial effusion or tamponade. Patient has been seen by nephrology for acute kidney injury secondary to ATN secondary to hypotension and cardiorenal syndrome. Patient is currently on bicarb drip, status post Lasix 80 mg IV once. Renal replacement therapy to be initiated immediately. Vascular consult in place for a dialysis catheter placement and start hemodialysis today with second treatment tomorrow. Sternal wound was producing thick yellowish brown fluid, was opened approximately 2 cm and deep culture was taken, packed and covered with 4 x 4 dressing. She is requiring vasopressors. She is hypothermic and warming blanket is in place.Patient had minimal output yesterday and none today. She is status post 2.5 L of fluids. 08/25 patient was examined in the ICU. She was able to maintain oxygenation on BiPAP overnight switch to high flow 15 m this morning. Patient did have episodes of agitation last night and was started on Seroquel. She did receive a dose of Seroquel prior to admission and was found to be resting comfortably. Patient is off pressors and bicarbonate drip and metabolic acidosis seemed to have cleared off. On evaluation of patient's lab, WBC is 14.3, hemoglobin 6.5 platelet 208 ABG this morning has a pH of 7.47 CO2 74. Bicarb 29. Sodium has improved to 126 chloride 96 BUN 43 creatinine 2.79 lactic acid has improved to 2.9 calcium 7 liver enzymes elevated AST at 2874 ALT 1469 alkaline phosphatase 192 CRP 356 BNP 13,000 UA does suggest some infection with WBC of 88 hyaline casts 33 protein 2+ urine blood trace nitrite negative leukocyte Estrace negative. Wound cultures positive for presumptive staph aureus. Patient's blood culture from yesterday are positive with presumptive staph aureus. Repeat blood cultures ordered. Patient received 1 unit of PRBCs for low hemoglobin. Urine output has improved to 20-40 mL's per hour. Patient did receive a dose of DDAVP for hyponatremia. Normal saline is running at 50 mL per hour. Did receive hemodialysis today with 2 L ultrafiltration. Patient was also noted to be in A. fib with RVR intermittently and her dose of Lopressor was increased to 25 mg every 8 hours. Continue daptomycin and cefepime for antibiotic coverage. Monitor patient's for QTC prolongation well on Seroquel. Patient has significant dehiscence of wound and may need I&D 08/26: She was intubated and placed on mechanical ventilation overnight with pulse ox of 96%, tidal volume 450, FiO2 50, PEEP of 5. Temperature max last evening was 101.2. Heart rate 82, blood pressure 120/53. WBC 9.6, hemoglobin 10.8, platelet count 159. Sodium 134, potassium 4.7, chloride 100, CO2 25, BUN 14 creatinine 1.83. Blood sugars running between 100 2753. Total bilirubin 3.3, AST 1067, ALT 993, alkaline phosphatase 251. Magnesium 2.1. Patient is on vasopressors. telemetry monitor atrial flutter alternating with sinus rhythm. Patient is also on propofol and Seroquel discontinued. Thoracic surgery is possible taking her to or for I&D and considering wound VAC. Patient is on Plavix. Echocardiogram reveals normal LV function and mild aortic stenosis. Patient is currently on daptomycin and cefepime per Dr. Mcintyre. Urine output remains low at 15-20 mL per hour. Should she is scheduled for third hemodialysis treatment today. Patient is scheduled for Lasix 80 mg IV this afternoon. 08/27 she remains in the ICU, intubated and mechanically ventilated. Patient is going to the OR for debridement today. Patient remains intubated on 50% FiO2 and PEEP of 5, assist control rate of 20volume 450. Continues to require Levophed at 11mcg/ hr . Blood clots and culture positive for MSSA. Urine output is 50-60 mL per hour. Patient continues to be on sedation from propofol at 50 max per KG permanent. IV fluids at KVO. Patient continues to have good urine output after a dose of 80 mg of IV Lasix today. Vision tolerated 2.5 L ultrafiltration yesterday and is started on hemodialysis on August 24. No holiday sedation today. Plan to continue Lasix 80 IV once daily and holding hemodialysis. Anticoagulation held for debridement. 08/28 patient remains in the ICU. Did have sternal Exploration and debridement yesterday remains sedated on propofol. Patient continues to have high temp of 101.6, to 233 tachycardic 111 blood pressure 106/51 oxygen saturation 95% on 50% FiO2. Labs suggest a leukocytosis of 24.3 hemoglobin stable at 10.7 platelet count has dipped dropped to 78, he really suggest a pH of 7.53 pCO2 30 PaO2 57, chloride of 110 potassium 3.5 and anion gap of 6 BUN 46 creatinine 0.9 calcium 7.8 ALT 3:15 alkaline phosphatase 312 AST 112 blood cultures from 08/26 positive for staph aureus. Urine output 1.2 L in 24 hours Repeat blood cultures sent today. Patient continues to be normal sinus rhythm not currently on any anticoagulation at the possibility of going for another debridement. Patient's continues to be on levo fed and still stays intubated. Continue IV Lasix. Patient initiated on IV Lasix 08/29: Patient remain in the ICU, remain on mechanical ventilation, sternal exploration and debridement was done and still have packing area within open wound at this point. Oxygenation is better patient is not 3 to be off vent at this point. Her urine output has been good and hemodynamically stable. 08/30: Patient still on mechanical ventilation, his sternum 1 and was changed today still have significant amount of infection and pus was packed still open. Patient remain on nafcillin and Moni mycin. Still having positive blood culture. 08/31: Patient is more awake today doing trial of weaning parameter try to get patient off the respirator, her incision and infection along the sternum is no change still have packing on still on IV antibiotics. Hemodynamically is more stable. 09/01: Patient evaluated in the ICU, continues on mechanical ventilation. Wound packing was removed yesterday, purulence was noted on the packing, deep near the heart and purulence around the heart. She continues on IV clindamycin and nafcillin. Patient was taken off sedation yesterday for a trial of weaning, but she became hypertensive and tachypneic so she is placed back on sedation. 09/02: Patient remains intubated and on mechanical ventilation with tidal volume 400, FiO2 of 50% and PEEP of 5. Patient has been off sedation since Monday. She is receiving OG tube feedings. She appears to be opening meaning her eyes and can shake her head. Otherwise not moving extremities. She has a wound VAC in place to the sternal wound. Wound cultures and blood culture positive for MSSA. She is scheduled for sternal wound excision and debridement with flap reconstruction and graft tomorrow with Dr. Whittaker. Repeat blood work reveals WBC of 13.6, hemoglobin 8.5. BUN 66 and creatinine 1.62, potassium 3.2 and has been replaced, blood sugars running between 107 and 132. Because renal functioning is worsening, nephrology has recommended holding nafcillin. Repeat chest x-ray reveals correlate for pneumonia, edema, ARDS. 09/03: She remains in the intensive care unit intubated and on mechanical ventilation with tidal volume 400, FiO2 40, PEEP of 5. Patient is awake with eyes open. She nodded her head no to having pain. She had a temperature this morning of 101.6 at 6 AM. Antibiotics are currently in the form of Kefzol. Repeat chest x-ray was done this morning and report is pending. Patient has been seen by neurology and doubt critical illness neuropathy. CAT scan of the brain and cervical spine done that showed no acute fracture or dislocation in the cervical spine. No acute intracranial hemorrhage, mass effect or midline shift. Ongoing airspace disease. Cardiology has recommended reinitiating statin. Temperature max 101.6, heart rate 101, blood pressure 117/52, pulse ox 95%. Repeat blood work reveals WBC 15.4, hemoglobin 8.3, platelet count 243. Sodium 149, potassium 2.8, chloride 111, CO2 28, BUN 66 and creatinine 1.49. Total bilirubin 2.4, AST 43, ALT 33 and alkaline phosphatase 260. All previous blood cultures have been positive for staph aureus MSSA. A repeat blood culture on August 2029 showing no growth at 24 hours. 09/04: Yesterday, patient underwent excision of sternal wound, partial sternotomy and pectoralis flap procedure. This morning, patient had new lines done by pulmonary medicine. Dr. Mcintyre has recommended continuing Kefzol and repeat blood cultures are in progress. Repeat chest x-ray reveals rotated exam, findings similar to prior, correlate for edema, pneumonia, ARDS. Cardiothoracic surgeryhas ordered a consult with Dr. Yuan. He has evaluated patient for global weakness and does not think she has new cervical spine issues that would cause her global weakness.patient continues to have fever with temperature maximum 102.2, tachycardic in the low 100s, respiratory rate 30, blood pressure 103/60, pulse ox 98%. She remains intubated and on mechanical ventilation with tidal volume 400, FiO2 50, PEEP of 5. WBC 17.5, hemoglobin 7.2, platelet count 328. Sodium 149, potassium 3.8, chloride 115, CO2 26, BUN 59 and creatinine 1.37. Blood sugars running 129-144. Magnesium 2.6. Total bilirubin 2.0, AST 39, alkaline phosphatase 197, ALT 19.. sputum culture has been obtained. Most recent blood culture from September 02 showing no growth at 24 hours and blood culture from September 01 is no growth at 48 hours. Patient is currently on very minimal sedation. 09/05: Patient remains in the ICU, intubated and on mechanical ventilation with tidal volume 400, FI02 40% and peep 5. Patient continues to run fevers. Dr. Mcintyre has changed antibiotics to cefepime and daptomycin. Blood cultures dated September 01, , are showing no growth. Sputum culture is in process. telemetry monitor sinus tachycardia. Heart rate has been running between 108 and 121, respiratory rate 31, blood pressure 90/32, pulse ox 98%. She remains on low dose norepinephrine. Patient is off sedation with eyes open. She is not moving extremities. She has been evaluated by orthopedic spine and spinal etiology has essentially been ruled out. Patient is also been evaluated by neurology and critical care neuropathy has also been essentially ruled out. Patient stabilized, hopefully a MRI can be performed. WBC 13.4, hemoglobin 5.4 and this was rechecked, platelet count 313, sodium 152, potassium 3.6, BUN 45 and creatinine 1.2. Patient is receiving 1 unit of packed RBCs. Nephrology is continuing IV Lasix 40 mg daily. Patient is on PEG tube feedings and tolerating. 09/06: Patient remains in intensive care unit. She is intubated and on mechanical ventilation with tidal volume 400, FiO2 40, PEEP 5. The patient has her eyes open, she is responsive with facial movement, she is able to minimally move lower extremities. She has a fecal management system in place as well as Uy catheter with good urine output. Patient was running fevers yesterday until evening. Patient has been afebrile following a reading of 1800 last night of 100.9. She is on IV antibiotics with cefepime and daptomycin. Heart rate 95-112, respiratory rate 28. Repeat chest x-ray reveals cardiomegaly with increased alveolar and interstitial edema and/or infiltrates bilaterally remain present. Possible ARDS. Hemoglobin today is at 8 status post She is continued on IV Lasix per nephrology. Potassium replaced. W BC 10.6, platelet count 276. Sodium 150, potassium 3.6, chloride 119, CO2 24, BUN 42 and creatinine 1.03. Blood sugar 140. Patient is receiving tube feedings at goal rate. 09/07: She remains in the intensive care unit, intubated and on mechanical ventilation with FiO2 of 40%, PEEP of 5. She remains off sedation and is awake and able to follow some minimal commands. Mature max 101.6, heart rate 104, respiratory rate 34, blood pressure 81/30, pulse ox 97%. AP blood work reveals WBC 11.8, hemoglobin 9.5, platelet count 347. Sodium 148, potassium 3.7, chloride 117, CO2 25, BUN 38 and creatinine 0.96. Blood sugar running between 112 117. Magnesium 2.0. Total bilirubin 1.5, AST 41, ALT 19, alkaline phosphatase 181. Albumin 2.4. Blood cultures on every remain without g rowth at 120 hours. Sputum culture has been finalized no growth. Patient is continued on cefepime and optimizing. PICC line is being inserted this morning by interventional radiology. OG tube with feedings at goal. Patient is not currently on vasopressors. 3: Patient remains in the intensive care unit intubated and on mechanical ventilation with tidal volume 400, FiO2 35 and PEEP of 5. Patient was on CPAP yesterday for about 8 hours but was unable to tolerate for only short period today. Her mental status has been labile. She is intermittently following commands with no response and staring. Patient appears to be uncomfortable. Generalized anasarca noted. She has brown liquid stool from fecal management system and we will check a C. diff toxin. Most likely diarrhea is only from tube feedings. Temperature max 101.6. Heart rate 113, respiratory rate 39, blood pressure 120/61, pulse ox 99%. Repeat chest x-ray reveals correlate for pneumonia, edema, ARDS. Repeat blood work reveals WBC 10, hemoglobin 7.4, platelet count 298. Sodium 145, potassium 3.4, chloride 114, CO2 24, BUN 33 and creatinine 0.85. Blood sugars are running between 115 and 122. Total bilirubin 1.2, AST 39, ALT 23, and phosphatase 150. Urinalysis sent last evening showed blood moderate, RBC 64, WBC 7. Blood cultures since every are showing no growth. 09/09: Patient remains in the intensive care unit intubated and on mechanical ventilation. Patient has been started on Precedex. She remains with [address] to the sternal wound. Yu catheter with good urine output. Fecal management system in place. C. difficile toxin was negative. 2. Feedings are at goal. The patient is not focusing eyes, no purposeful movements. Patient has been afebrile greater than 24 hours. Heart rate 90s, respiratory rate 30s to 40s, blood pressure 112/64, pulse ox 97%. WBC 9.0, hemoglobin 7.3, platelet count 292. Potassium 3.4 and will be replaced. Blood sugars running between 100 2049. Alkaline phosphatase 161. TSH 3.7-0. We have also added a vitamin B12 level. Lasix was increased to twice daily. Temperature max 100.6. 09/10: Patient remains in intensive care unit, intubated and on mechanical ventilation with tidal volume 400, FiO2 35, PEEP 5. Patient has been started on propofol since yesterday's eval. Temperature max 100.6, heart rate 80, respiratory rate 28, blood pressure 104/60, pulse ox 90%. Repeat blood work reveals Connie BC 12.5, hemoglobin 7.4, platelet count 403. Electrolytes are normal. BUN 34 and creatinine 0.81. Blood sugars are running 123 236. Magnesium 2.0. AST 42, ALT 31, alkaline phosphatase 183. Chest x-ray is stable. 09/11:she remains in the intensive care unit, intubated and on mechanical ventilation. Patient has been off sedation this morning. Her eyes are open but she has no reaction, does not follow instructions. No purposeful movements.CAT scan of the cervical spine reveals C3-C7 ACDF hardware causing artifact. Thickening of the prevertebral soft tissues likely due to intubation state disc osteophyte complex contributing to moderate spinal stenosis at C3-C4. Severe left neural foraminal stenosis. Moderate to severe right neural foraminal stenosis at C6-C7. Degenerative grade 1 anterolisthesis at C7-T1. Thoracic spine CAT scan revealed no vertebral compression collapse. Degenerative grade 1 anterolisthesis secondary to hypertrophic facet arthropathy below the ACDF at C7-T1. Low utility for epidural abscess. No endplate erosions are seen.CAT scan of the brain reveals no acute intracranial abnormality. No enhancing intracranial lesions. Layering fluid in the mastoid air cells. repeat chest x- ray reveals correlate for pneumonia, junk congestive heart failure and pulmonary edema, ARDS. Lasix decreased to 40 mg IV once daily. free water flushes have been discontinuedper nephrology. Patient is followed by cardiology and pulmonary medicine as well. Patient has been afebrile since September 09. Heart rate in the 90s, respiratory rate in the 20s,110/44. WBC 13.2, hemoglobin 7.7, platelet count 428. Sodium 136, potassium 3.9, [id number], CO2 25, BUN 32 and creatinine 0.86. Blood sugars are running between 121 and 132. Alkaline phosphatase 163. Blood cultures since every have shown no growth. REVIEW OF SYSTEMS Unable to obtain due to mental status change/intubation. PHYSICAL EXAMINATION Gen: This is a 75-year-old female. Patient is resting in ICU bed and appears to be comfortable. HEENT: Head is atraumatic, normocephalic. Pupils equal, round. Sclerae is anicteric. Patient intubated and on mechanical ventilation. NECK: Supple. No JVD. No lymphadenopathy. LUNGS: Diminished. No wheezes or rhonchi. No intercostal retractions. HEART: Regular rate and rhythm. 2/6 systolic murmur. Dressing to sternal wound, wound VAC, 3 RAHEEM drains with serosanguineous drainage. ABDOMEN: Soft. Bowel sounds are present. No masses. No tenderness. The catheter draining jac urine. Fecal management system with brown liquid stool. EXTREMITIES: 2+ bilat pitting edema. Generalized anasarca. NEUROLOGICAL: Patient resting comfortably in bed, eyes are open and staring, no blinking noted, patient is unresponsive and not making any purposeful movements. ASSESSMENT AND PLAN 1. Acute diastolic heart failure, (POA) EF 55%, mild AI and mild MR and mild TR, also complicated by severe protein calorie malnutrition, Cardiology consult appreciated. Continue Lasix 40 mg IV daily managed by nephrology. 2. Acute hypoxemic respiratory failure. (POA) Patient has underlying pulmonary hypertension as well, consult with coronary. Patient is intubated and on mechanical ventilation. Pulmonary medicine is managing. 3. Acute kidney injury secondary to ATN secondary to hypotension and cardiorenal syndrome. (POA) Patient is status post dialysis catheter placement, hemodialysis. Patient is followed closely by nephrology. 4. Hyperkalemia secondary to potassium supplementation, losartan and acute kidney injury as well as severe acidosis. (POA) Consult with nephrology appreciated. Continue medical management. 5. Metabolic acidosis secondary to acute kidney injury. (POA) 6. Metabolic encephalopathy secondary to acute kidney injury, acute heart failure, acute respiratory failure, metabolic acidosis and hyperkalemia. (POA) improving. 7. Sepsis with septic shock with multiorgan failure with metabolic encephalopathy, acute kidney injury, acute heart failure, acute respiratory failure, MSSA bacteremia. (POA) status post sternal exploration and sternal debridement on August 27. She requires vasopressors. Possible MSSA pneumonia on CAT scan. Patient is continued on cefepime and daptomycin. 8. Sepsis with sternal wound dehiscence. (POA) Status post sternal exploration and sternal debridement on 08/27 followed by excision of sternal wound, partial sternotomy and pectoralis flap procedure on 09/03. Infectious disease consult appreciated. Antibiotics have been transitioned to cefepime and daptomycin. 9. Acute blood loss anemia, postop, status post transfusion of 5 units of pa cked RBCs. Continue to monitor. 10. Hyponatremia. Continue to monitor. 11. CAD, with prior CABG performed on 08/10/2020, two-vessel, involving HOLLAND to LAD, and reverse greater saphenous vein to obtuse marginal coronary artery. Continue aspirin 325 mg daily, Plavix 75 mg daily, Toprol all 75 mg twice a day, 12. Severe protein calorie malnutrition, with anasarca and hypotension. Continue tube feedings. 13. History of pulmonary fibrosis. Continue duo nebs and albuterol 14. Asthma, mild intermittent. Continue ipratropium albuterol nebulizers 15. Hyperlipidemia. Continue statin daily 16. Hypertension. Currently hypotensive 17. GI prophylaxis. Pantoprazole 18. Critical care neuropathy essentially ruled out by and neurology. 19. DVT prophylaxis: SCDs 20. Blood sugar management in a nondiabetic. insulin scale every 6 hours. 21. Acute transaminitis secondary to hypoperfusion. 22. Chronic kidney disease stage II. Prognosis guarded DISCHARGE PLAN TBD. Impression and plan of care have been directed as dictated by the signing physic ian. Monica Fragoso nurse practitioner acting as scribe for signing physician. Objective - Vital Signs Vital signs: Vital Signs Temp 99.8 F H 09/11/20 08:00 Pulse 97 09/11/20 09:00 Resp 25 H 09/11/20 09:00 BP 169/85 09/11/20 06:00 Pulse Ox 97 09/11/20 09:00 Intake & Output 09/10/20 09/11/20 09/11/20 18:59 06:59 18:59 Intake Total 9885.988 9251.156 558.107 Output Total 2365 2200 280 Balance -507.652 -396.844 278.107 Weight 85.8 kg 87.6 kg Intake: IV 476 356 209 Cefepime 2 gm In Sodium 100 100 100 Chloride 0.9% 100 ml @ 25 mls/hr IVPB Q12HR [facility] Rx #:[id number] DAPTOmycin 500 mg In 100 50 Sodium Chloride 0.9% 50 ml @ 100 mls/hr IVPB Q24HR [facility] Rx#:[id number] Dextrose 5% in Water 1, 240 220 40 000 ml @ 20 mls/hr IV . Q24H [facility] Rx#:[id number] Pressure Bag 36 36 9 Sodium Chloride 0.9% 1, 10 000 ml @ 10 mls/hr IV . Q24H [facility] Rx#:[id number] Intake, IV Titration 301.348 346.156 50.107 Amount Norepinephrine 8 mg In 77.068 99.653 Sodium Chloride 0.9% 250 ml @ 0.05 MCG/KG/MIN 8. 611 mls/hr IV .Q24H [facility] Rx#:[id number] propofoL 1,000 mg In 224.280 246.503 50.107 Empty Bag 1 bag @ Titrate IV .Q0M [facility] Rx#: [id number] Tube Feeding 480 501 99 Other 600 600 200 Output: Drainage 60 50 25 RAHEEM #1. 10 RAHEEM #2 50 50 25 RAHEEM #3 0 0 Urine 1405 1650 255 Stool 900 500 Other: Voiding Method Indwelling Catheter Indwelling Catheter ABP, PAP, CO, CI - Last Documented Arterial Blood Pressure 128/49 - Labs CBC & Chem 7: 09/11/20 03:50 09/11/20 03:50 Labs: Abnormal Lab Results - Last 24 Hours (Table) 09/10/20 09/10/20 09/10/20 Range/Units 11:47 17:36 23:40 WBC (3.8-10.6) k/uL RBC (3.80-5.40) m/uL Hgb (11.4-16.0) gm/dL Hct (34.0-46.0) % RDW (11.5-15.5) % Neutrophils # (1.3-7.7) k/uL ABG pH (7.35-7.45) ABG HCO3 (21-25) mmol/L ABG Total CO2 (19-24) mmol/L ABG O2 Saturation (94-97) % Sodium (137-145) mmol/L BUN (7-17) mg/dL Glucose (74-99) mg/dL POC Glucose (mg/dL) 136 H 109 H 126 H (75-99) mg/dL Alkaline Phosphatase (38-126) U/L Albumin (3.5-5.0) g/dL 09/11/20 09/11/20 09/11/20 Range/Units 03:50 03:50 04:05 WBC 13.2 H (3.8-10.6) k/uL RBC 2.58 L (3.80-5.40) m/uL Hgb 7.7 L (11.4-16.0) gm/dL Hct 23.8 L (34.0-46.0) % RDW 17.7 H (11.5-15.5) % Neutrophils # 8.9 H (1.3-7.7) k/uL ABG pH 7.47 H (7.35-7.45) ABG HCO3 26 H (21-25) mmol/L ABG Total CO2 27 H (19-24) mmol/L ABG O2 Saturation 98.7 H (94-97) % Sodium 136 L (137-145) mmol/L BUN 32 H (7-17) mg/dL Glucose 121 H (74-99) mg/dL POC Glucose (mg/dL) (75-99) mg/dL Alkaline Phosphatase 163 H (38-126) U/L Albumin 2.5 L (3.5-5.0) g/dL 09/11/20 Range/Units 05:42 WBC (3.8-10.6) k/uL RBC (3.80-5.40) m/uL Hgb (11.4-16.0) gm/dL Hct (34.0-46.0) % RDW (11.5-15.5) % Neutrophils # (1.3-7.7) k/uL ABG pH (7.35-7.45) ABG HCO3 (21-25) mmol/L ABG Total CO2 (19-24) mmol/L ABG O2 Saturation (94-97) % Sodium (137-145) mmol/L BUN (7-17) mg/dL Glucose (74-99) mg/dL POC Glucose (mg/dL) 132 H (75-99) mg/dL Alkaline Phosphatase (38-126) U/L Albumin (3.5-5.0) g/dL Microbiology - Last 24 Hours (Table) 09/08/20 Unknown Catheter Tip Culture - Final Catheter Tip 09/07/20 09:27 Blood Culture - Preliminary Blood No Growth after 72 hours
[2020-09-11] MEDS: NOREPINEPHRINE 8 MG in SODIUM CHLORIDE 0.9% 250 ML IV SCH (15:04)
[2020-09-11] MEDS: FERROUS SULFATE ORAL ELIXIR 300 MG/5 ML CUP PO SCH (15:14)
[2020-09-11] MEDS: ASCORBIC ACID 500 MG TAB PO SCH (15:15)
--- NOTE | 2020-09-11 15:21 | P.PN ---
Subjective Progress Note Date: 09/11/20 The patient was seen at bedside and upon seeing the patient's around 8:45 AM today as she's been off of propofol IV drip (40mcg/kg/min) for initially 5 minutes. Per the patient's nurse she stated that there is no acute events overall she was on IV propofol the whole time since she gets agitated and restle ss and the and tachypnea. She is also on norepinephrine drip 0.07mcg/kg/min. White blood cell is 13.2 and is trending up. Patient last blood cultures on 09/07/2020 is no growth after 96 hours. Patient catheter tip cultures on 09/08/2020 shows no growth after 48 hours. Objective - Vital Signs Vital signs: Vital Signs Temp 99.9 F H 09/11/20 12:00 Pulse 103 H 09/11/20 14:00 Resp 30 H 09/11/20 14:00 BP 169/85 09/11/20 06:00 Pulse Ox 97 09/11/20 14:00 Intake & Output 09/10/20 09/11/20 09/11/20 18:59 06:59 18:59 Intake Total 8135.615 2513.156 894.761 Output Total 2365 2200 1630 Balance -507.652 -396.844 -735.239 Weight 85.8 kg 87.6 kg 87.6 kg Intake: IV 476 356 287 Cefepime 2 gm In Sodium 100 100 100 Chloride 0.9% 100 ml @ 25 mls/hr IVPB Q12HR [facility] Rx #:[id number] DAPTOmycin 500 mg In 100 50 Sodium Chloride 0.9% 50 ml @ 100 mls/hr IVPB Q24HR [facility] Rx#:[id number] Dextrose 5% in Water 1, 240 220 40 000 ml @ 20 mls/hr IV . Q24H [facility] Rx#:[id number] Pressure Bag 36 36 27 Sodium Chloride 0.9% 1, 70 000 ml @ 10 mls/hr IV . Q24H [facility] Rx#:[id number] Intake, IV Titration 301.348 346.156 80.761 Amount Norepinephrine 8 mg In 77.068 99.653 30.654 Sodium Chloride 0.9% 250 ml @ 0.05 MCG/KG/MIN 8. 611 mls/hr IV .Q24H [facility] Rx#:[id number] propofoL 1,000 mg In 224.280 246.503 50.107 Empty Bag 1 bag @ Titrate IV .Q0M [facility] Rx#: [id number] Tube Feeding 480 501 297 Other 600 600 230 Output: Drainage 60 50 25 RAHEEM #1. 10 RAHEEM #2 50 50 25 RAHEEM #3 0 0 Urine 1405 1650 1605 Stool 900 500 Other: Voiding Method Indwelling Catheter Indwelling Catheter Indwelling Catheter ABP, PAP, CO, CI - Last Documented Arterial Blood Pressure 127/49 - Exam GENERAL: The patient is lying in bed and does not seem in acute distress. Respiratory: Intubated and on ventilator. NEUROLOGICAL: Examined the patient after Propofol was held for 3.5 hours. Limited because of patient's condition. Higher mental function: The patient is awake but unable to communicating or nodding. She seem to follow one command and it is upon asking her to move her leg otherwise not following (her following command to that was inconsistent). Cranial nerves: The pupils are round, equal and reactive to light. Visual lópez could not be assessed. No facial weakness noted. Motor: Gait is deferred. The strength: no movement of bilateral upper extremities. While lower she is able to lift bilateral lower extremities above gravity. Decrease tone in upper extremities. Normal bulk. Cerebellum: Unable to assess. Sensation: Unable to assess. Reflexes (right/left): 3+ throughout except ankles are 2+ bilaterally Plantars are upgoing bilaterally. - Labs CBC & Chem 7: 09/11/20 03:50 09/11/20 03:50 Labs: Abnormal Lab Results - Last 24 Hours (Table) 09/10/20 09/10/20 09/11/20 Range/Units 17:36 23:40 03:50 WBC 13.2 H (3.8-10.6) k/uL RBC 2.58 L (3.80-5.40) m/uL Hgb 7.7 L (11.4-16.0) gm/dL Hct 23.8 L (34.0-46.0) % RDW 17.7 H (11.5-15.5) % Neutrophils # 8.9 H (1.3-7.7) k/uL ABG pH (7.35-7.45) ABG HCO3 (21-25) mmol/L ABG Total CO2 (19-24) mmol/L ABG O2 Saturation (94-97) % Sodium (137-145) mmol/L BUN (7-17) mg/dL Glucose (74-99) mg/dL POC Glucose (mg/dL) 109 H 126 H (75-99) mg/dL Alkaline Phosphatase (38-126) U/L Albumin (3.5-5.0) g/dL 09/11/20 09/11/20 09/11/20 Range/Units 03:50 04:05 05:42 WBC (3.8-10.6) k/uL RBC (3.80-5.40) m/uL Hgb (11.4-16.0) gm/dL Hct (34.0-46.0) % RDW (11.5-15.5) % Neutrophils # (1.3-7.7) k/uL ABG pH 7.47 H (7.35-7.45) ABG HCO3 26 H (21-25) mmol/L ABG Total CO2 27 H (19-24) mmol/L ABG O2 Saturation 98.7 H (94-97) % Sodium 136 L (137-145) mmol/L BUN 32 H (7-17) mg/dL Glucose 121 H (74-99) mg/dL POC Glucose (mg/dL) 132 H (75-99) mg/dL Alkaline Phosphatase 163 H (38-126) U/L Albumin 2.5 L (3.5-5.0) g/dL 09/11/20 Range/Units 11:51 WBC (3.8-10.6) k/uL RBC (3.80-5.40) m/uL Hgb (11.4-16.0) gm/dL Hct (34.0-46.0) % RDW (11.5-15.5) % Neutrophils # (1.3-7.7) k/uL ABG pH (7.35-7.45) ABG HCO3 (21-25) mmol/L ABG Total CO2 (19-24) mmol/L ABG O2 Saturation (94-97) % Sodium (137-145) mmol/L BUN (7-17) mg/dL Glucose (74-99) mg/dL POC Glucose (mg/dL) 124 H (75-99) mg/dL Alkaline Phosphatase (38-126) U/L Albumin (3.5-5.0) g/dL Microbiology - Last 24 Hours (Table) 09/07/20 09:27 Blood Culture - Preliminary Blood No Growth after 96 hours 09/08/20 Unknown Catheter Tip Culture - Final Catheter Tip Assessment and Plan Assessment: * New onset quadriplegia--improved to more movement in lower extremities compared to upper, unclear etiology. Rule out rule out spinal cord involvement like epidural abscess and rule out critical illness myopathy especialy CT of the cervical spine showed no evidence of discitis osteomyelitis. 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 Improved. Blood cultures negative since 09/01/2020. * Status post CABG, followed by wound infection, requiring sternal debridement with persistent sepsis. Status post placement of muscle flap. * Septic shock with MSSA * Mild hypernatremia--improved * Acute kidney injury--improved * Acute transaminitis * CHF * Hypertension * History of cervical fusion, spinal stenosis in the past. Plan: * Patient underwent EEG testing on 09/05/20: Reported as abnormal due to background slowing of moderate to severe degree. This is suggestive of generalized cerebral dysfunction as can be seen with toxic metabolic encephalopathy or related to diffuse structural brain abnormality. No epileptiform activity was seen. No indication for antiepileptic medication. * CT cervical on 09/10/20 is to reported as noted that low utility for assessment of epidural abscess with CT. C3-C7 ACDF hardware causes extensive artifact further limiting assessment of the spinal canal. Thickening of the prevertebral soft tissue likely due to intubated state and fluid filling the oropharynx and the hypopharynx. If conservative for retropharyngeal abscess or abscess involving the more anterior soft tissue contrast enhanced CT of the neck soft tissue can be considered. Disc osteophyte complexes contributing to moderate spinal canal stenosis at C3-C4 area and severe left neuroforaminal stenosis at this level. Moderate to severe right neuroforaminal stenosis at C 6-C7. Degenerative grade 1 enterolithiasis at C7-T1. Next * CT of thorax on 09/10/20 is reported as no vertebral compression collapse. Degenerative grade 1 enterolithiasis secondary to hypertrophic facet arthropathy below the ACDF at C7-T1. Again, low utility of CT for assessment of epidural abscess. Further limitation due to artifact from a large patient body habitus. No endplate erosion are seen. MRI is persistent clinical concern. * CT of the brain is reported as 09/10/20 as no acute intracranial abnormality seen. No enhancing intracranial lesion. Larynx fluid in the mastoid air cell s on bolus size likely due to intubated state. Related to exclude mastoiditis. * Appreciate Orthopedic spine input. * CPK 74, TSH 1.87, aldolase 8.4 (1.2 to 7.6). Repeat TSH: 3.72 (normal). * Pending MRI Cervical spine (currently intubated and once off ventilator and stable will get MRI). The plan is discussed with the ICU team and the patient's nurse. Will follow-up with patient sporadically. Samy Guadalupe MD Neuro-hospitalist Time with Patient: Less than 30
--- NOTE | 2020-09-11 17:31 | PN ---
PROGRESS NOTE DATE OF SERVICE: 09/11/2020 REASON FOR FOLLOWUP: MSSA bacteremia with sternal osteo, left groin dialysis catheter infection. INTERVAL HISTORY: The patient has been running a low-grade fever of 99.3. The patient is hemodynamically stable not on pressor support. FiO2 is currently 35%, no significant purulent secretions through the ET or any worsening diarrhea reported by the nursing staff. The patient is currently sedation . PHYSICAL EXAMINATION: Blood pressure 119/45, pulse of 100, temperature 99.6. She is 95% on 35% FiO2. General description is an elderly female lying in bed in no distress. Respiratory system: Unlabored breathing, decreased breath sounds in the base, with no wheeze. Heart S1, S2. Regular rate and rhythm. Abdomen soft, no tenderness. LABS: Hemoglobin 10.1, white count 13.2, BUN of 32, creatinine 0.86. DIAGNOSTIC IMPRESSION AND PLAN: Patient with acute respiratory failure, multifactorial in this patient who does have an MSSA bacteremia secondary to sternal osteo, status post debridement. Patient subsequently did have a fever that responded to cefepime and daptomycin to be continued while monitoring clinical course closely. Continue supportive care. MMODL / IJN: [id number] /
[2020-09-11] MEDS: SODIUM CHLORIDE 0.9% 1,000 ML IV SCH (19:01)
[2020-09-11] MEDS: MELATONIN 3 MG TABLET PO SCH (20:58)
[2020-09-11 23:55] LABS: Glucose,Whole Blood 120 mg/dL (75-99)
[2020-09-12] MEDS: HEPARIN SODIUM,PORCINE 5,000 UNIT/ML 1 ML VIAL SQ SCH ×4 (00:09→23:29)
[2020-09-12] MEDS: INSULIN ASPART (NovoLOG) 100 UNIT/ML VIAL SQ SCH ×4 (00:11→17:35)
[2020-09-12] MEDS: IPRATROPIUM-ALBUTEROL 3 ML NEB INHALATION SCH ×6 (03:29→23:27)
[2020-09-12 04:22] LABS: Anisocytosis Slight; Basophils # (A) 0.1 k/uL (0-0.2); Basophils % (A) 1 %; Eosinophils # (A) 0.4 k/uL (0-0.7); Eosinophils % (A) 4 %; HGB 7.5 gm/dL (11.4-16.0); Hypochromasia Slight; Lymphocytes # (A) 2.2 k/uL (1.0-4.8); Lymphocytes % (A) 21 %; MCH 29.7 pg (25.0-35.0); MCHC 32.7 g/dL (31.0-37.0); MCV 90.7 fL (80.0-100.0); Mean Platelet Volume 8.8; Monocytes # (A) 0.5 k/uL (0-1.0); Monocytes % (A) 5 %; Neutrophils # (A) 7.2 k/uL (1.3-7.7); Neutrophils % (A) 68 %; Platelet Count 384 k/uL (150-450); Poikilocytosis Slight; RBC 2.53 m/uL (3.80-5.40); RDW 17.5 % (11.5-15.5); WBC 10.6 k/uL (3.8-10.6)
[2020-09-12 05:27] LABS: African American GFR (CKD) >90 (>60 ml/min/1.73 sqM); Anion Gap 6 mmol/L; Blood Urea Nitrogen 31 mg/dL (7-17); Calcium 8.8 mg/dL (8.4-10.2); Carbon Dioxide 26 mmol/L (22-30); Chloride 105 mmol/L (98-107); Glucose 113 mg/dL (74-99); Non-African American GFR(CKD) 79 (>60 ml/min/1.73 sqM); Potassium 3.9 mmol/L (3.5-5.1); Sodium 137 mmol/L (137-145)
[2020-09-12 05:48] LABS: ABG Base Excess 4.8 mmol/L; ABG HCO3 28 mmol/L (21-25); ABG PCO2 34 mmHg (35-45); ABG PH 7.51 (7.35-7.45); ABG PO2 93 mmHg (83-108); ABG TCO2 29 mmol/L (19-24); Allen Test Performed? Yes
[2020-09-12 06:25] LABS: Glucose,Whole Blood 121 mg/dL (75-99)
[2020-09-12] MEDS ORDERED: POTASSIUM BICARBONATE/CIT AC 20 MEQ TABLET.EFF NG-TUBE SCH (07:00)
--- NOTE | 2020-09-12 08:21 | P.PN ---
Subjective Progress Note Date: 09/12/20 wound infection. Reevaluated today on 08/28/2020, patient remains in the ICU, intubated and mechanically ventilated. Her assist-control rate is 20, volume is 450 FiO2 is 50% PEEP was at 5 and I increased it up to 8. ABG showed a pO2 of 57 pCO2 of 30 pH of 7.53. O2 saturation on the monitor is 96%. Patient remains on norepinephrine at 0.07 mcg/kg/m, she is also on propofol at 65 mcg/kg/m. Patient is on enteral feeding. Remains on cefepime and daptomycin for her positive blood cultures/MSSA. Patient is also on Lasix at 80 mg IV push every 24 hours. Her urine output has been good. And her chest x-ray continues to show mild congestive heart failure changes. Patient has leukocytosis with WBC count 24.3, electrolytes are normal BUN is 46 creatinine 0.90. Liver enzymes are trending down slowly Patient was reevaluated today on 08/29/2020, remains intubated and mechanically ventilated. She is on assist control rate of 20 tidal volume is 450 FiO2 is 50% and PEEP of 8. ABG showed a pO2 of 56 pCO2 of 35 pH of 7.50 however her O2 saturation on the monitor is 99%. Patient remains on norepinephrine at 0.05 mcg/kg/m, he is on propofol at 70 mcg/kg/m, she is on Lasix 80 mg IV push daily, with good urine output. IV fluid mostly at KVO. Antibiotics garzon she is on cefazolin and clindamycin. Patient had MSSA in the blood and in the sternal wound. Chest x-ray continues to show evidence of pulmonary edema, and now she seems to be developing some consolidation in the right upper lobe medially. Her sternum remains open, decision regarding sternal closure will be made in the next 24-48 hours by thoracic surgery. Patient continues to have leukocytosis with WBC count of 24.2 hemoglobin is 10.6, basic metabolic profile is normal renal profile is normal not requiring any further dialysis, and she has good urine output responding well to diuretics. Liver enzymes seem to be trending down 08/30/2020 the patient remains intubated on a mechanical ventilator. This morning, she has an assist-control at the rate of 20 with tidal volume of 450 and the flow of 70 with a FiO2 of 50% with a PEEP of 8. The morning blood gases from today showed a pH of 7.55, and the pCO2 is a 35 with a pO2 of 72. Necessity ventilator changes were done. Peak airway pressure was 37. Static pressure was 32. Chest x-ray still showing diffuse bilateral pulmonary infiltrates consistent with pneumonia although possibility of an acute lung injury/ARDS cannot be completely excluded. ET tube is in a good location. The patient this morning is sedated with propofol which is running at 50 mcg/kg per minute. Sedation holiday was given this morning to evaluate her mental status. I was told yesterday that the patient did have some diminished level of consciousness once she was off the sedation. Nevertheless she was placed on sedation again to maintain synchrony with the mechanical ventilator. She is septic with staff aureus, MSSA has been cultured in her sputum, and her blood and in her sternal wound. Her current antibiotic coverage including a combination of nafcillin and clindamycin. She is afebrile. Sternal wound is being monitored by the cardiothoracic surgery team. Daily dressing changes are being done. There is still output which is purulent according to the nursing staff. Pressors and the patient is currently on norepinephrine running at 0.04 mcg/kg per minute. Renal function is improving and the creatinine is down to 0.78. The white cell count is at 19.8 with hemoglobin of 10.2 and a platelet count of 90. Liver function tests continue to improve with an AST of 68, ALT of 77 and the last blood culture was taken from 08/29/2020 was again positive for gram-positive bacteria most likely MSSA. The patient has orogastric tube in place and she is receiving vital high protein at a rate of 23 mL an hour. This is at goal for now. No abdominal distention. No increased residuals for now. She is afebrile. Progress note dated 08/31/2020. This is a 75-year-old female was admitted to the hospital on August 22, she came in for a sternal wound infection, and worsening respiratory status with heart failure. Unfortunately, she developed severe hypoxemic respiratory failure and required intubation on August 25. She was discovered to have a sternal wound infection and went to the operating room for debridement, on August 27. Microbiology is positive for methicillin sensitive staph aureus, and she remains on nafcillin and clindamycin. This patient initially had a two- vessel bypass grafting on 08/10/2020, and was discharged on 08/19/2020. Currently, the patient remains on the volume assist control mode, rate is 20, tidal volume is 400, FiO2 40%, and PEEP of 8. Blood gases show a PaO2 of 65, a PaCO2 39, and a pH is 7.58. His blood gases consistent with a relative hypoxemia, and a severe metabolic alkalosis. Currently, the norepinephrine has been weaned off. She remains on saline at 25 mL an hour, and she is currently not on any sedation. She's getting vital high protein at 23 mL an hour with a goal of 28 mL an hour. Today, regarding do a spontaneous breathing trial, on pressor support of 15, CPAP of 5. If the patient shows any signs of deterioration, such as tachycardia, tachypnea, hypertension, diaphoresis, higher respiratory rates, and/or lower tidal volumes, the patient will be switched back to the volume assist control mode with the. Progress note dated 09/01/2020. 75-year-old female admitted back on August 22. She came into the hospital with a sternal wound infection. In addition, she had worsening respiratory status, with heart failure. She developed reinaldo hypoxemic respiratory failure and required intubation on August 25. At that time, she was discovered to have a sternal wound infection, secondary to staph aureus, and went to the operating room for debridement. This was on August 27. Microbiology is positive for methicillin sensitive staph aureus, and she remains on nafcillin and clindamycin. The patient had a two-vessel bypass grafting done on August 10, and was discharged on August 19. Currently, she remains on the volume assist control modality, the rate of 20, tidal volume 400, FiO2 50%, and PEEP of 5. This morning's blood gases, show a PaO2 of 58, a PaCO2 of 40, and a pH is 7.61. These arterial blood gases are consistent with hypoxemia, and a severe metabolic alkalosis. The FiO2 was increased from 40-50%. Currently, she is on propofol at 20 mcg/kg/m, saline at 15 mL an hour, and vital high protein at 54 mL an hour, which is goal. Today, we are going to ensure that her potassium exceeds 4.5, DC her Lasix, and add Diamox 500 mg a day. We also increased the FiO2 earlier this morning to 50%. She will not wean with his profound metabolic alkalosis, and likely, we will hypoventilate and retain carbon dioxide, to balance out her pH. Hence, it's imperative that we treat the alkalosis aggressively. Progress note dated 09/04/2020. 75-year-old female, admitted back on August 22. She came into the hospital with a sternal wound infection. She had worsening respiratory status with heart failure, and developed reinaldo hypoxemic respiratory failure and required intubat ion on 08/25. At that time, she was discovered to have a sternal wound infection secondary to staph aureus, and went to the operating room on 08/27, for debridement. Microbiology was positive for methicillin sensitive staph aureus. The patient had a two-vessel bypass grafting done on 08/10/2020, and was discharged on 08/19. She remains on the mechanical ventilator. She is on the volume assist control mode, rate of 20, tidal volume 400, FiO2 50%, and a PEEP of 5. She's currently on norepinephrine at 6.1 g her minute, D5W with half-normal saline and 20 mEq of potassium at 75 mL an hour, and tube feeds are currently on hold. This morning, we put a right femoral triple-lumen catheter in, as well as a right brachial arterial line. She received both fentanyl and Nimbex for the procedure. She is also postop day #1, status post excision of sternal wound, right pectoralis major myocutaneous flap, and left pectoralis major myocutaneous flap procedure. The patient's currently reasonably stable in the intensive care unit. No plans on any weaning her extubation at this time. Current laboratory data includes a white count of 17.5, hemoglobin 7.2, hematocrit 23.4, and platelet count 328,000. Morning arterial blood gas shows a PaO2 of 98, a PaCO2 of 34, and pH is 7.48. This blood gases consistent with normoxemia, and a mild respiratory and metabolic alkalosis. Sodium is 149, po tassium is 3.8, chloride 115, CO2 26, anion gap 8, BUN 59, creatinine 1.37. Chest x-ray shows bilateral infiltrates, which could relate to either pneumonia or pulmonary edema. X-ray is unchanged. Progress note dated 09/05/2020. 75-year-old female, admitted back on 08/22. Patient came into the hospital with a sternal wound infection, and developed worsening respiratory status, with heart failure, and reinaldo hypoxemic respiratory failure, requiring intubation on 08/25. At that time, she was discovered to have a sternal wound infection, secondary to staph aureus, and went to the operating room on 08/27, for debridement. Microbiology was positive for methicillin sensitive staph aureus. The patient had a two-vessel bypass grafting done on 08/10/2020, and was discharged home on 08/19. Currently, the patient remains on the ventilator. She is on the volume assist control mode, rate of 20, tidal volume 400, FiO2 40%, PEEP of 5. Arterial blood gases show a PaO2 of 150, PaCO2 35, pH is 7.49. The blood gases are consistent with hyperoxia, and a mild respiratory alkalosis. The patient will have a spontaneous breathing trial today, with a PSV of 80, and CPAP of 5. She's currently getting vital high protein at 54 mL an hour which is goal, and, D5.45, with 20 of potassium, at 20 mL an hour. She is on a small dose of norepinephrine, which is 0.04 g kilogram per minute, or 3.6 mcg /m. The patient is postop day #2, status post excision of sternal wound, with a right pectoralis major myocutaneous flap, and a left pectoralis major myocutaneous flap procedure. White blood count is 13.4, hemoglobin is only 5.4, hematocrit 17.2, and platelet count 313,000. She is currently getting blood. Sodium is 152, potassium 3.6, chlorides 120, carbon dioxide 26, anion gap 6, BUN 45, and creatinine 1.2. The IVs changed from D5 0.45, to just plain dextrose. Progress note dated 09/06/2020. 75-year-old female, admitted back on 08/22/2020. The patient initially came into the hospital with a sternal wound infection, with developing and worsening respiratory failure CHF, and profound hypoxemia. The patient required intubation and mechanical ventilation on 08/25/2020. At that time, he was discovered to have a sternal wound infection secondary to Staphylococcus aureus, and went to the operating room on 08/27/2020 for debridement. Microbiology was positive for methicillin sensitive staph aureus. The patient initially had a two-vessel bypass grafting, on 08/10/2020, and was discharged home 9 days later, on 08/19/2020. The patient remains on the ventilator, on the volume assist control mode, rate of 20, tidal volume 400, FiO2 40%, to be reduced down to 35%, and a PEEP of 5. Arterial blood gases show a PaO2 of 114, PaCO2 of 35, and a pH of 7.45. These blood gases consistent with a mild respiratory alkalosis, and mild hyperoxia. The patient is getting dextrose, at 20 mL an hour, saline at 10 mL an hour, of vital high protein at 54 mL an hour, which is goal, and she will be given a spontaneous breathing trial today on pressure support of 10, and CPAP of 5. Yesterday, on PSV 8, CPAP 5, she only lasted 5 minutes with her trial. In my opinion, unless the patient starts making significant progress, she likely will be a candidate for a tracheostomy and PEG tube procedure. Today's labs show a white count of 10.6, hemoglobin 8, hematocrit 25, and a platelet count of 276,000. Sodium is 150, potassium 3.6, chlorides 119, carbon dioxide 24, anion gap 7, BUN 42, and creatinine 1.03. Rest of the labs are reviewed. Chest x- rays shows cardiomegaly, with increased alveolar and interstitial edema and/or infiltrate laterally. Chest x-ray is unchanged. on 09/07/2020 the patient is being seen for a follow-up. The patient is off sedation and she is wide awake and following commands and answering questions appropriately while her being intubated on a mechanical ventilator. She is still profoundly weak. She can wiggle her toes and fingers. She is unable to raise her arms against gravity.. As such the patient is profoundly weak. She does have normal reflexes in all 4 extremities as such I think this is a myopathy rather than a underlying neuropathy processes underlying her weakness. There was a concern of epidural abscess/discitis. CAT scan of the cervical spine showed no evidence of any abnormalities and the patient was seen by neurology. EEG done earlier showed background slowing and moderate to severe degree of slowing suggestive of diffuse cerebral dysfunction/metabolic encephalopathy. No seizure activity was noted. The hardware and the cervical spine has been stable. No loosening.She was on a mechanical ventilator. Earlier this morning she was assist control mode at a tidal volume of 400 with a FiO2 of 35% with a PEEP of 5. I switched her to a pressure support of 8 and a PEEP of 5 with an FiO2 of 35%. Her med ventilation still elevated at 13.5 L per minute. She is able to generate a tidal volume of 3 80 mL and the respiratory rate is around 33. Despite her tachypnea, she states that she is breathing comfortably. Surgical wound site over the sternum is dry clean and intact. The patient has 3 separate RAHEEM drains and output is serosanguineous at this point in time. She has a fecal management system in place with output being minimal. The patient is receiving enteral feeding via a G-tube and she is on vital high protein at the rate of 54 mL an hour and the patient is also receiving free water supplements 400 mL every 4 hours. Her sodium level is down to 148. She is also on D5 water running at 20 mL an hour. She is afebrile. Antibiotic coverage has included a combination of cefepime and daptomycin. No fever. Most recent blood cultures From 09/01/2020 and 09/02/2020 and 09/03/2020 were all negative and a sputum culture from 09/04/2020 was also negative. The chest x- ray showing some bilateral pulmonary infiltrates.. The patient is awake. She has a adequate cough at this point in time. On today's evaluation of 09/08/2020, the patient is being seen in follow-up. The patient remains off sedation and she is wide awake. She is still weak and motor weakness is been an ongoing issue. She is moving her legs and she is able to raise her feet against gravity. She also is able to get as with her hands and she is able to move her hands rather than yesterday. Nevertheless, she is unable to raise her hands of the bed and she remains in significant amount of motor weakness. Yesterday, the patient was able to tolerate a total of 8 hours a pressure support mode of ventilation with a pressure support of 8 and a PEEP of 5. This morning, she is back on assist control mode at the rate of 20 with tidal volume of 400 and FiO2 of 35% with a PEEP of 5. The blood gases from today showed a pH of 7.48 with a pCO2 of 34 and pO2 of 98. Chest x-ray shows stable bilateral pulmonary infiltrates which is essentially unchanged compared to yesterday, probably slightly better. She does have a right sided PICC line and the findings of chest x-rays are essentially stable with stable diffuse patchy bilateral pulmonary infiltrates. ET tube remains in a good location. The patient has no significant orotracheal secretions. The white cell count at 10.0. No fever. Repeat blood cultures of been negative. The sodium level is improving and the sodium level is down to 145 and the patient is getting free water flushes 400 cc every 4 hours and she is also getting IV fluid in the form of D5W at the rate of 20 mL an hour. The patient has 3 separate RAHEEM drains and output remains serosanguineous. Output is minimal at this point in time. Her antibiotic coverage remains a combination of cefepime and daptomycin. As stated, the repeat blood cultures have been essentially negative and the patient is afebrile for now. The active issue for now is the profound weakness and the weaning process. The surgical wound site is covered with a wound VAC yet she has a fecal management system with minimal amount of output for now. Repeat 2020 patient is being seen for a follow-up. Yesterday, the patient was given a spelled his breathing trial with pressure support of 12 and a PEEP of 5. She'll assess for almost an hour and following that she became more restless and agitated and accordingly the patient was started on Precedex which is currently running at 0.3 mcg/kg/h. Subsequently she was switched back on assist control mode with tidal volume of 400 FiO2 of 35% with a PEEP of 5. She ena nued to have a higher minute ventilation and a high respiratory rate. Blood gases from this morning showed a pH of 7.50 with a pCO2 of 30 and pO2 of 78 and this is consistent with primary respiratory alkalosis. Chest x-ray findings are essentially stable. She has 3 different RAHEEM drains which are draining serosanguineous material. She also has a superficial wound VAC with minimal amount of output. No fever. No chills. White cell count is at 9. Hemoglobin stable at 7.4. Renal function stable with a creatinine of 0.8. Cardiac rhythm is sinus for now. Fluid balance +128 mL over the past 24 hours. She is afebrile. She remains on a combination of cefepime and daptomycin. Neurologically, she is awake, she is raising her legs against gravity. Motor function the arms is probably stable, if anything she is able to grasp her grasping ability is improving. She does have a weak cough. She is awake and alert and shortness of breath and she follows some simple commands although her responses not consistent. She is also receiving enteral feeding for nutritional support and she is currently on vital high protein at the rate of 50 mL an hour. On 09/10/2020 the patient is being seen for a follow-up. This morning the patient is sedated. She did have a quite often yesterday. After being off sedation for quite some time, the patient became restless, tachypneic with a high minute ventilation and she was breathing quite fast. She was having a high minute ventilation on assist control volume cycle mode of mechanical ventilation and she did the same on a pressure support mode of ventilation. Ultimately, she had to be sedated and currently she is on propofol running at 40 mcg/kg per minute. She is on a mechanical ventilator and her minute ventilation has dropped considerably and her minute ventilation this morning is down to 12 and she is able to generate a tidal volume of about 400 and the respiratory rate is in the high 20s. She is on AVC plus mode with a rate of 20 and a tidal volume of 400 with a FiO2 of 35% with a PEEP of 5. Inspiratory time is at 0.8 seconds and her I:E ratio is around 1-1.5. Her chest x-ray remains unchanged with bilateral pulmonary infiltrates. Orotracheal tube is in a good location. The patient has RAHEEM drains in place and output is also serosanguineous. She is afebrile. White cell count was at 12. No significant oral secretions. Repeat cultures of been all negative and she remains on the same antibiotic coverage which is a combination of cefepime and daptomycin. Balance over the past 24 hours is -250 mL. She has adequate urine output. Renal function is stable. Pro-calcitonin level was at 0.8. She is afebrile. Her T-max of 100.6 yesterday at around 8 PM yesterday. Hemoglobin today is at 7.4. Today's evaluation of 09/11/2020, I'm seeing this patient for a follow-up. She has an extensive workup yesterday which included a CAT scan of the brain that showed no acute abnormalities. There was no enhancing intracranial lesions. There was no evidence of any acute intracranial hemorrhage or ischemic changes or mass effect. CAT scan of the surgical spine was also done and the hardware in her C-spine was noted. There was C3 through C7 hardware causing significant amount of artifact. Nevertheless, there was no evidence of any epidural abscess with understanding that the imaging was quite limited because of the hardware induced artifact. There was disc osteophyte and complex arthritis causing moderate spinal canal stenosis at the level of C3-C4 along with severe left neuroforaminal stenosis. The patient also had a CAT scan of the chest that showed patchy bilateral pulmonary infiltrates. There was no significant effusion. This is most consistent with pneumonia. Few scattered mediastinal lymphadenopathy seen. Otherwise, sputum culture is negative and the patient's white cell count is at 15.2 and she is afebrile for now. She has not spiked any temperature. On today's evaluation, she is an assist-control mode at the rate of 20 with tidal volume of 400 and FiO2 of 35% with a PEEP of 5. The blood gas showed a pH of 7.47 with a pCO2 of 36 and pO2 of 96. Peak airway pressure is 28. The patient is quite sick sinus with a mechanical ventilator. She is slightly tachycardic and she is an sinus rhythm . She is sedated with propofol which is running at 4040 mics and since we started the propofol, the patient became hypotensive and the patient is requiring norepinephrine infusion and she is very much sensitive to nor epi and currently the infusion is running at 0.08 mcg/kg per minute. Her fluid balance is adequate and the patient has been in a negative fluid balance of 900 mL over the past 24 hours. The patient was receiving Lasix 40 mg IV every 12 hours which I will back off with understanding that there is no interstitial edema and pulmonary findings are essentially consistent with pneumonia. At times of antibiotic coverage, she remains on a combination of daptomycin and cefepime for now. Enterofeeding is in the form of vital high protein at the rate of 30 mL an hour. She has well-developed stool at this point in time. Surgical wound site is dry clean and intact. The wound VAC has been removed and the underlying wound is clean. RAHEEM drains are in place 09/12/2020, patient is being seen in follow-up. This morning, the patient is off sedation. Note that with her off the sedation as of yesterday to reevaluate her underlying mental status knowing that her CAT scan of the brain was negative for any acute abnormalities. She is opening her eyes spontaneously. She looks around. She is not following any commands on today's evaluation. She is afebrile and her white cell count today is at 10.6. She remains intubated on mechanical ventilator. She remained on assist control at the rate of 20 with a tidal volume of 400 and FiO2 of 35% with a PEEP of 5. Blood gases from today showed a pH of 7.51 with a pCO2 of 34 and pO2 of 93. No significant orotracheal secretions. Sternal wound is dry clean and intact. The wound VAC has been removed. The chest x-ray from today shows improvement in the bilateral pulmonary infiltrates. ET tube is in a good location. The patient has an OG in a good location. No evidence of any pneumothorax. Hemodynamically, the patient is on no pressors. She is receiving enteral feeding for nutritional support. She remains on IV cefepime and daptomycin. No new cultures are available. White cell count of 10.6 with a hemoglobin of 7.5. Rest of the electrolytes are all within normal limits. She is tolerating her enteral feeding and she is producingstool. The patient is a negative fluid balance and the patient is rec eiving daily Lasix 40 mg IVevery 24 hours. Objective - Vital Signs Vital signs: Vital Signs Temp 99.3 F 09/12/20 04:00 Pulse 112 H 09/12/20 07:00 Resp 26 H 09/12/20 07:00 BP 169/85 09/11/20 06:00 Pulse Ox 97 09/12/20 07:00 Intake & Output 09/11/20 09/12/20 09/12/20 18:59 06:59 18:59 Intake Total 1062.761 742 46 Output Total 1905 1015 80 Balance -842.239 -273 -34 Weight 87.6 kg 85.5 kg Intake: IV 326 256 13 Cefepime 2 gm In Sodium 100 100 Chloride 0.9% 100 ml @ 25 mls/hr IVPB Q12HR [facility] Rx #:[id number] DAPTOmycin 500 mg In 50 Sodium Chloride 0.9% 50 ml @ 100 mls/hr IVPB Q24HR [facility] Rx#:[id number] Dextrose 5% in Water 1, 40 000 ml @ 20 mls/hr IV . Q24H [facility] Rx#:[id number] Pressure Bag 36 36 3 Sodium Chloride 0.9% 1, 100 120 10 000 ml @ 10 mls/hr IV . Q24H [facility] Rx#:[id number] Intake, IV Titration 80.761 Amount Norepinephrine 8 mg In 30.654 Sodium Chloride 0.9% 250 ml @ 0.05 MCG/KG/MIN 8. 611 mls/hr IV .Q24H [facility] Rx#:[id number] propofoL 1,000 mg In 50.107 Empty Bag 1 bag @ Titrate IV .Q0M [facility] Rx#: [id number] Tube Feeding 396 396 33 Other 260 90 Output: Drainage 25 RAHEEM #2 25 RAHEEM #3 0 Urine 1880 1015 80 Other: Voiding Method Indwelling Catheter Indwelling Catheter ABP, PAP, CO, CI - Last Documented Arterial Blood Pressure 146/54 - Exam No acute distress, currently patient is off sedation. The patient opens her ey es spontaneously. No motor function and she is not following any commands. HEENT examination is grossly unremarkable. Mucous membranes are moist. There is an orally placed endotracheal tube, and an orally placed OG tube. Neck supple. Full range of motion. No adenopathy thyromegaly or neck vein distention. Cardiovascular examination reveals regular rhythm rate. S1-S2 normal. No S3 or S4. A soft systolic murmur is noted, grade 2/6. Lungs reveal scattered rhonchi and crackles. Breath sounds equal bilaterally. No wheezes are appreciated. Breath sounds are diminished throughout. Exam is unchanged.. The patient has been removed and the surgical wound site over the chest area dry clean and intact and the patient also has several RAHEEM drains within the chest with serosanguineous drainage at this point in time. Note that the patient has 3 different RAHEEM drains, one on each side and one central. Output isminimal at this point in time. Abdominal exam revealed normal bowel sounds. The abdomen was soft, non-tender, and without masses, organomegaly, or appreciable enlargement of the abdominal aorta.the patient umbilical hernia which is easily reducible Extremities are intact. No cyanosis or clubbing. Mild edema is noted throughout. The patient does have a right brachial arterial line, the patient has a PICC line in the right upper extremity and she also has a femoral line in her right groin. Skin reveals a dressing over the sternal wound infection.. The RAHEEM drains are all in place and output of serosanguineous at this point in time. Neurologic examination patientis off sedation. She would grimace to painful stimulation. No focal neurological deficit at this point in time. Global weakness in all 4 extremities as discussed earlier.She is unable to assess any m otor function on today's evaluation. She does not move her arms or legs. Reflexes are present and +1 in all 4 extremities.she does open up her eyes spontaneously. She looks around. She blinks. She has cranial nerve reflexes. She withdraws to deep painful stimulation. - Labs CBC & Chem 7: 09/12/20 03:58 09/12/20 03:58 Labs: Abnormal Lab Results - Last 24 Hours (Table) 09/11/20 09/11/20 09/12/20 Range/Units 11:51 23:53 03:58 RBC 2.53 L (3.80-5.40) m/uL Hgb 7.5 L (11.4-16.0) gm/dL Hct 23.0 L (34.0-46.0) % RDW 17.5 H (11.5-15.5) % ABG pH (7.35-7.45) ABG pCO2 (35-45) mmHg ABG HCO3 (21-25) mmol/L ABG Total CO2 (19-24) mmol/L ABG O2 Saturation (94-97) % BUN (7-17) mg/dL Glucose (74-99) mg/dL POC Glucose (mg/dL) 124 H 120 H (75-99) mg/dL 09/12/20 09/12/20 09/12/20 Range/Units 03:58 05:12 06:23 RBC (3.80-5.40) m/uL Hgb (11.4-16.0) gm/dL Hct (34.0-46.0) % RDW (11.5-15.5) % ABG pH 7.51 H (7.35-7.45) ABG pCO2 34 L (35-45) mmHg ABG HCO3 28 H (21-25) mmol/L ABG Total CO2 29 H (19-24) mmol/L ABG O2 Saturation 99.0 H (94-97) % BUN 31 H (7-17) mg/dL Glucose 113 H (74-99) mg/dL POC Glucose (mg/dL) 121 H (75-99) mg/dL Microbiology - Last 24 Hours (Table) 09/07/20 09:27 Blood Culture - Preliminary Blood No Growth after 96 hours Assessment and Plan Plan: 1 Acute hypoxemic and hypercapnic respiratory failure, secondary to incisional wound infection, with methicillin sensitive staph aureus, as well as pneumonia, and bilateral pleural effusions. The follow-up cultures as of 09/02/2020 were all negative and the patient remains on a combination of cefepime and daptomycin for now. Chest x-ray findings are stable with bilateral pulmonary infiltrates and interstitial infiltrates and small effusions. I performed a computed tomography scan of the chest that showed patchy right upper pulmonary infiltrates most consistent with pneumonia and unlikely to be related to any fluid. the chest x-ray from today shows improvement in the pulmonary infiltrates bilaterally. The patient is on a FiO2 of 35%. No orotracheal secretions. Not ready for extubation especially with her generalized global weakness and diminished level of consciousness. 2 Postop day #8, status post excision of sternal wound, right pectoralis major myocutaneous flap, and left pectoralis major myocutaneous flap. Output is serosanguineous, the output is serosanguineous and clear and the wound VAC is removed and the surgical wound site is dry clean and intact. 3 Status post readmission on August 22, and intubation for respiratory failure on 08/25/2020 and the patient continues to be intubated for now. 4 Sepsis, secondary to sternal wound infection, caused by methicillin sensitive staph aureus, with bacteremia. Repeat cultures are all negative and the patient remains on adequate antibiotic coverage for now. the patient had a low-grade fever yesterday which recovered and currently is afebrile and the patient is off pressors for the past 24 hours. No new cultures are available and patient had to be placed on pressors after going on propofol. Once propofol was soft, the patient was able to come off the pressors. 5 Septic shock, secondary to sternal wound infection. The patient is currently on no pressors 6 Acute kidney injury, recovered 7 Acute metabolic acidosis, secondary to acute kidney injury, recovered 8 Acute diastolic CHF with bilateral pleural effusions. 9 History of hypertension. 10 History of cervical stenosis and the patient has other to severe cervical spine stenosis at the level of C3-C4 with osteophyte formation. She also has mo derate stenosis at the level of C6-C7 sodium Hardware is in place and there was no evidence of any epidural abscess for now based on the CAT scan noted from yesterday and this was CAT scan of the cervical spine. 11 Primary history of tobacco use. 12 Mild pulmonary fibrosis/interstitial lung disease. 13 Status post sternal exploration with sternal debridement, August 27. 14 Recent prior history of two-vessel bypass grafting, on August 10, with discharge on August 19. 15 Hypernatremia, recovered and the patient's sodium level has normalized. 16 enteral feeding for nutritional support and she is able to tolerate. Plan: continue ventilator support without any changes Chest x-ray and blood gases were reviewed and the findings are stable for now CAT scan of the brain, no stroke, no acute abnormalities CAT scan of the chest showed bilateral patchy pulmonary infiltrates consistent with pneumonia Lasix to 40 mg every 24 hours, IV pressors have been weaned off Continue enteral feeding for nutritional support continue cefepime and daptomycin Surgical follow-up on the wound and the RAHEEM drains VAC is removed We'll may be headed hours tracheostomy tube insertion due to prolonged respiratory failure and difficulties in weaning secondary to above-mentioned comorbidities. We'll continue following this patient with aggressive the consultants. Will start talking about tracheostomy as the patient continues to have generalized global motor weaknessshe has not shown adequate neurologic recovery. She is weak in all 4 extremities and she is not following commands. She this may be a component of critical care myopathy post sepsis. The patient has significant cervical spinal stenosis. No evidence of any epidural abscess based on the most recent CAT scan findings. She has undergone previous cervical fusion and the hardware is in good positioning. Critical care evaluation that was done and more than 30 minutes
--- NOTE | 2020-09-12 08:49 | XR ---
EXAMINATION TYPE: XR chest 1V portable DATE OF EXAM: 09/12/2020 COMPARISON: Prior chest x-ray 09/11/2020 HISTORY: Congestion TECHNIQUE: Single frontal view of the chest is obtained. FINDINGS: Endotracheal tube, NG tube, right-sided PICC line, overlying drains, mediastinal drain, ov erlying leads are again noted. Patient is rotated. No evident pneumothorax or pleural effusion. Diffu se interstitial and airspace changes within the lungs are again seen. Heart size is likely stable, pa tient shows post atrial appendage clip placement, cervical spine fusion change. IMPRESSION: There is no significant change. Correlate for pneumonia, edema, ARDS
[2020-09-12] MEDS: CEFEPIME 2 GM in SODIUM CHLORIDE 0.9% 100 ML IVPB SCH ×2 (09:11→20:02)
[2020-09-12] MEDS: CLOPIDOGREL 75 MG TAB PO SCH (09:11)
[2020-09-12] MEDS: DAPTOmycin 500 MG in SODIUM CHLORIDE 0.9% 50 ML IVPB SCH (09:11)
[2020-09-12] MEDS: CHLORHEXIDINE GLUCONATE 15 ML CUP MUCOUS MEM SCH ×2 (09:11→20:03)
[2020-09-12] MEDS: METOPROLOL TARTRATE 50 MG TAB PO SCH ×2 (09:12→20:02)
[2020-09-12] MEDS: PANTOPRAZOLE 40 MG/10 ML VIAL IVP SCH (09:12)
[2020-09-12] MEDS: FUROSEMIDE 10 MG/ML 4 ML VIAL IV SCH (09:12)
[2020-09-12] MEDS: ASPIRIN 325 MG TAB PO SCH (09:12)
[2020-09-12] MEDS: DRY MOUTH SPRAY 44.3 SPRAY/44.3 ML SPRAY MUCOUS MEM SCH ×4 (09:12→23:20)
[2020-09-12] MEDS: SODIUM CHLORIDE 0.9% 1,000 ML IV SCH (09:13)
--- NOTE | 2020-09-12 09:38 | P.PN ---
Subjective HPI: This is a 75-year-old female past medical history significant for hypertension, hyperlipidema, pulmonary fibrosis, asthma, obesity, former smoker with smoking 32 years ago, osteoarthritis, cervical stenosis post anterior cervical decompression, discectomy and fusion, TIA as child at age 11. Over the past 6 months patient was episodes of shortness of breath and lower extremity edema. She underwent a stress test which showed anterior wall ischemia with small reversible defect. a 2-D echocardiogram which showed mild aortic valve insufficiency, mild mitral valve regurgitation, mild tricuspid valve regurgitation and left ventricular function to be normal with an ejection fraction of 55%. Subsequently she underwent an elective heart catheterization on 07/27/2020 which demonstrated a left main stenosis, a 40% stenosis to her mid left anterior descending coronary artery and a 30% stenosis to her right coronary artery. Due to the patient's symptoms and findings on her heart catheterization of left main stenosis a consult was placed to Dr. Sethi from cardiothoracic surgery for further evaluation and treatment recommendations.She was admitted to the hospital from 08/06/20-08/19/20 for hyponatremia and underwent double vessel coronary artery bypass graft on 08/10/2020. She is now readmitted on 08/22/20 with respiratory failure, evidence of pneumonia, and evidence of pneumonia and dehiscense of her sternal wound. tr ansferred to ICU on 08/24. On 08/25, patient had an episode of Afib with RVR intermittently and her dose of lopressor was increaed to 25mg every 8 hours. On 08/26, patient was intubated and placed on mechanical ventilation overnight and did have atrial flutter alternating with sinus rhythm. On 08/27 she underwent debridement. 09/03 patient underwent excision of sternal wound, partial sternotomy with placement of a pectoralis flap. 09/09/2020 Patient seen and examined. Patient remains on ventilator with a FiO2 40%, PEEP of 5 with a spontaneous breathing trial. Patient is still tachypnic and very weak with inability to move her upper extremities and neck much. Her sodium has improved to 141 today. She has good urine output with the Lasix however then urine output tapers off. She is up approximately 100 mL or last 24 hours. 09/10/2020 Patient seen and examined. Patient still remains very weak. Patient has not been passing her spontaneous breathing trials. She was placed on a low-dose of norepinephrine. Lasix was increased to twice a day yesterday and sodium this morning has remained stable at 138. Hemoglobin remains stable at 7.4, mild increase in white blood cell count 12.5. 09/11/20 Patient seen and examined. Patient still very weak and minimally responsive on ventilator. Remains on a low-dose of norepinephrine. Patient receiving Lasix 40 mg IV daily. Sodium remained stable at 136. 09/12/20 Patient seen and examined. Patient unresponsive on ventilator. She does make occasional eye contact however not following commands. Sodium 137 today. Creatinine stable 0.75. PHYSICAL EXAMINATION GEN: Patient in ICU bed, appears comfortable, anxious, on vent HEENT: Patient intubated and on mechanical ventilation CHEST EXAMINATION: Lungs are diminished to auscultation anteriorly . HEART EXAMINATION: Regular rate and rhythm. S1, S2 heard. No murmurs, gallops or rub. ABDOMEN: Soft, Positive bowel sounds. EXTREMITIES: 2+ edema in bilateral hands, 1+ bilateral pitting edema lower extremities. NEUROLOGIC EXAMINATION: Patient is somnolent, unresponsive, eyes open ASSESSMENT Acute hypoxemica Respiratory failure s/p coronary artery bypass grafting Acute on chronic diastolic heart failure- EF 55%, mild aortic regurgitation, mild mitral regurgitation, mild tricuspid regurgitation Wound dehiscense s/p debridement and excision and placement of pectoralis muscle flap Acute Kidney Injury- renal function now back to baseline Hypernatremia - improved Coronary artery disease- s/p CABG performed on 08/10/20 Sepsis with septic shock, with MSSA bacteremia with sternal wound dehiscence s/p sternal exploration, sternal debridement on 08/27. s/p Exicion of sternal wound, partial sternotomy, pectoralis flap on 09/03 Acute blood loss anemia- s/p 2 unit on 09/05/20 History of Hypertension- currently hypotensive on low-dose norepinephrine likely related to sedation History of Hyperlipidemia Altered mental status, extreme weakness, questionable ICU myopathy, ICU delirium versus other Hypotension, suspect mainly related to sedation plus or minus component of sepsis PLAN -Continue dual-antiplatelet therapy aspirin daily, Plavix daily -Continue beta sisi: Metoprolol 50 mg BID as tolerated. -Majority of anasarca likely related to protein calorie malnutrition. Continue supportive care. Await any neurologic progress. Objective - Vital Signs Vital signs: Vital Signs Temp 99.3 F 09/12/20 04:00 Pulse 109 H 09/12/20 09:00 Resp 28 H 09/12/20 09:00 BP 169/85 09/11/20 06:00 Pulse Ox 97 09/12/20 09:00 Intake & Output 09/11/20 09/12/20 09/12/20 18:59 06:59 18:59 Intake Total 1062.761 742 46 Output Total 1905 1015 80 Balance -842.239 -273 -34 Weight 87.6 kg 85.5 kg Intake: IV 326 256 13 Cefepime 2 gm In Sodium 100 100 Chloride 0.9% 100 ml @ 25 mls/hr IVPB Q12HR [facility] Rx #:[id number] DAPTOmycin 500 mg In 50 Sodium Chloride 0.9% 50 ml @ 100 mls/hr IVPB Q24HR [facility] Rx#:[id number] Dextrose 5% in Water 1, 40 000 ml @ 20 mls/hr IV . Q24H [facility] Rx#:[id number] Pressure Bag 36 36 3 Sodium Chloride 0.9% 1, 100 120 10 000 ml @ 10 mls/hr IV . Q24H [facility] Rx#:[id number] Intake, IV Titration 80.761 Amount Norepinephrine 8 mg In 30.654 Sodium Chloride 0.9% 250 ml @ 0.05 MCG/KG/MIN 8. 611 mls/hr IV .Q24H [facility] Rx#:[id number] propofoL 1,000 mg In 50.107 Empty Bag 1 bag @ Titrate IV .Q0M [facility] Rx#: [id number] Tube Feeding 396 396 33 Other 260 90 Output: Drainage 25 RAHEEM #2 25 RAHEEM #3 0 Urine 1880 1015 80 Other: Voiding Method Indwelling Catheter Indwelling Catheter ABP, PAP, CO, CI - Last Documented Arterial Blood Pressure 131/51 - Labs CBC & Chem 7: 09/12/20 03:58 09/12/20 03:58 Labs: Abnormal Lab Results - Last 24 Hours (Table) 09/11/20 09/11/20 09/12/20 Range/Units 11:51 23:53 03:58 RBC 2.53 L (3.80-5.40) m/uL Hgb 7.5 L (11.4-16.0) gm/dL Hct 23.0 L (34.0-46.0) % RDW 17.5 H (11.5-15.5) % ABG pH (7.35-7.45) ABG pCO2 (35-45) mmHg ABG HCO3 (21-25) mmol/L ABG Total CO2 (19-24) mmol/L ABG O2 Saturation (94-97) % BUN (7-17) mg/dL Glucose (74-99) mg/dL POC Glucose (mg/dL) 124 H 120 H (75-99) mg/dL 09/12/20 09/12/20 09/12/20 Range/Units 03:58 05:12 06:23 RBC (3.80-5.40) m/uL Hgb (11.4-16.0) gm/dL Hct (34.0-46.0) % RDW (11.5-15.5) % ABG pH 7.51 H (7.35-7.45) ABG pCO2 34 L (35-45) mmHg ABG HCO3 28 H (21-25) mmol/L ABG Total CO2 29 H (19-24) mmol/L ABG O2 Saturation 99.0 H (94-97) % BUN 31 H (7-17) mg/dL Glucose 113 H (74-99) mg/dL POC Glucose (mg/dL) 121 H (75-99) mg/dL Microbiology - Last 24 Hours (Table) 09/07/20 09:27 Blood Culture - Preliminary Blood No Growth after 96 hours
--- NOTE | 2020-09-12 09:58 | P.PN ---
Subjective Progress Note Date: 09/12/20 Principal diagnosis: Shortness of breath, acute diastolic heart failure, bilateral pleural effusion, lactic acidosis, hypercapnic respiratory failure requiring BiPAP followed by ri chanical ventilation, deep sternal wound infection with MSSA, acute kidney injury, acute hyperkalemia, hyponatremia, acute transaminitis, hypotension requiring vasopressors use, acute anemia. Past medical history significant for coronary artery disease with left main stenosis status post 2 vessel CABG on 08/10/2020 with expected postoperative acute blood loss anemia, hypotension, and urinary retention as well as candidal stomatititus, hyponatremia, pulmonary fibrosis, asthma, hypertension, hyperlipidemia, previous tobacco dependence, obesity, osteoarthritis, cervical stenosis post anterior cervical disc decompression, discectomy and fusion, TIA as a child, family history of premature coronary artery disease. Paroxysmal Afib with RVR. POD #15 sternal exploration with sternal debridement. POD #9 removal of table and partial resection of the manubrium as well as partial sternectomy by Dr. Sethi, right pectoralis major myocutaneous flap, left pectoralis major myocutaneous flap by Dr. Whittaker. The patient is seen today 09/12/2020 in follow-up at her bedside in the intensive care unit. She remains intubated with mechanical ventilator support. Current mechanical ventilator settings are as follows assist control 20, tidal volume 400, FiO2 35% and PEEP of 5. Oxygen saturation 98% on current mechanical ventilator settings. ABG results this morning show a pH of 7.51, pCO2 34, pO2 93, HCO3 28, oxygen saturation 99% and base excess 4.8. The patient opens her eyes with verbal stimuli with some tracking noted, does not move her extremities with verbal stimuli and still remains with profound weakness. Sedation has been on hold for 24 hours. OG tube remains in place with continuous tube feedings vital high-protein to go rate of 54 mL per hour with automatic water flushes 30 mL every 4 hours. She remains hemodynamically stable and is currently on no inotropic or pressor support. Norepinephrine drip has been on hold since 9 AM yesterday. She remains on cefepime and daptomycin for antibiotic coverage managed by infectious disease. Her T-max temperature in the last 24 hours 99.9F. Laboratory results this morning show a WBC count 10.6, hemoglobin 7.5, hematocrit 23.0, platelets 384, sodium 137, potassium 3.9, BUN 31, and creatinine 0.75. Midline sternal incision remains clean, dry with franc in place. No drainage or redness present. Bedside telemetry showing sinus tachycardia heart rate 112 bpm. Objective - Vital Signs Vital signs: Vital Signs Temp 99.3 F 09/12/20 04:00 Pulse 109 H 09/12/20 09:00 Resp 28 H 09/12/20 09:00 BP 169/85 09/11/20 06:00 Pulse Ox 97 09/12/20 09:00 Intake & Output 09/11/20 09/12/20 09/12/20 18:59 06:59 18:59 Intake Total 1062.761 742 318 Output Total 1905 1015 205 Balance -842.239 -273 113 Weight 87.6 kg 85.5 kg Intake: IV 326 256 189 Cefepime 2 gm In Sodium 100 100 100 Chloride 0.9% 100 ml @ 25 mls/hr IVPB Q12HR [facility] Rx #:[id number] DAPTOmycin 500 mg In 50 50 Sodium Chloride 0.9% 50 ml @ 100 mls/hr IVPB Q24HR [facility] Rx#:[id number] Dextrose 5% in Water 1, 40 000 ml @ 20 mls/hr IV . Q24H [facility] Rx#:[id number] Pressure Bag 36 36 9 Sodium Chloride 0.9% 1, 100 120 30 000 ml @ 10 mls/hr IV . Q24H [facility] Rx#:[id number] Intake, IV Titration 80.761 Amount Norepinephrine 8 mg In 30.654 Sodium Chloride 0.9% 250 ml @ 0.05 MCG/KG/MIN 8. 611 mls/hr IV .Q24H [facility] Rx#:[id number] propofoL 1,000 mg In 50.107 Empty Bag 1 bag @ Titrate IV .Q0M [facility] Rx#: [id number] Tube Feeding 396 396 99 Other 260 90 30 Output: Drainage 25 RAHEEM #2 25 RAHEEM #3 0 Urine 1880 1015 205 Other: Voiding Method Indwelling Catheter Indwelling Catheter Indwelling Catheter ABP, PAP, CO, CI - Last Documented Arterial Blood Pressure 131/51 - Constitutional Constitutional Comment(s): This is 75-year-old female patient who remains intubated with mechanical ventilator support. Not following any verbal commands at this time and remains with profound weakness. Opens her eyes with verbal stimuli. Sedation has been on hold for 24 hours. General appearance: Present: no acute distress, obese - EENT Eyes: Present: PERRLA, normal appearance. Absent: scleral icterus - Neck Details: Neck is supple, no JVD, no lymphadenopathy. - Respiratory Details: Lung sounds essentially clear throughout, diminished bilateral bases. No wheezes, rhonchi or crackles. Respirations are symmetrical and nonlabored with mechanical ventilator support. Current mechanical ventilator settings are assist control 20, TV 400, FiO2 35% and PEEP of 5. ABG results this morning show a pH of 7.51, pCO2 34, pO2 93, HCO3 28, oxygen saturation 99% and base excess 4.8. Oxygen saturations 98% on current mechanical ventilator settings. - Cardiovascular Details: Regular rhythm and tachycardic rate. S1 and S2 present, negative for S3, gallop or murmur. Bedside telemetry showing sinus tachycardia heart rate 112. Generalized +1 edema. Knee-high ANGEL hose and sequential compression devices in place to her bilateral lower extremities. 3 chest RAHEEM drains remain in place draining scant serosanguineous drainage. Heart hugger in place. - Gastrointestinal Gastrointestinal Comment(s): Abdomen is soft, nontender and nondistended. Active bowel sounds present all 4 abdominal quadrants. No guarding or rigidity. No organomegaly appreciated. OG tube in place with continuous tube feedings of vital high-protein infusing at goal rate of 54 mL per hour with automatic water flushes 30 mL every [address] hours. FMS remains in place with liquid brown stool. - Genitourinary Genitourinary Comment(s): Yu catheter for accurate I&O. Draining clear yellow urine with 630 mL output in the last 8 hours. - Neurologic Neurologic Comment(s): Open size with verbal stimuli. Awake and alert. Tracking with her eyes. Not moving her extremities with verbal stimuli, remains with profound weakness. - Musculoskeletal Musculoskeletal Comment(s): Not moving her extremities with verbal stimuli, remains with profound weakness. - Psychiatric Psychiatric Comment(s): Awake and alert. - Allied health notes Allied health notes reviewed: nursing - Labs CBC & Chem 7: 09/12/20 03:58 09/12/20 03:58 Labs: Abnormal Lab Results - Last 24 Hours (Table) 09/11/20 09/11/20 09/12/20 Range/Units 11:51 23:53 03:58 RBC 2.53 L (3.80-5.40) m/uL Hgb 7.5 L (11.4-16.0) gm/dL Hct 23.0 L (34.0-46.0) % RDW 17.5 H (11.5-15.5) % ABG pH (7.35-7.45) ABG pCO2 (35-45) mmHg ABG HCO3 (21-25) mmol/L ABG Total CO2 (19-24) mmol/L ABG O2 Saturation (94-97) % BUN (7-17) mg/dL Glucose (74-99) mg/dL POC Glucose (mg/dL) 124 H 120 H (75-99) mg/dL 09/12/20 09/12/20 09/12/20 Range/Units 03:58 05:12 06:23 RBC (3.80-5.40) m/uL Hgb (11.4-16.0) gm/dL Hct (34.0-46.0) % RDW (11.5-15.5) % ABG pH 7.51 H (7.35-7.45) ABG pCO2 34 L (35-45) mmHg ABG HCO3 28 H (21-25) mmol/L ABG Total CO2 29 H (19-24) mmol/L ABG O2 Saturation 99.0 H (94-97) % BUN 31 H (7-17) mg/dL Glucose 113 H (74-99) mg/dL POC Glucose (mg/dL) 121 H (75-99) mg/dL Microbiology - Last 24 Hours (Table) 09/07/20 09:27 Blood Culture - Preliminary Blood No Growth after 96 hours - Imaging and Cardiology Chest x-ray: report reviewed, image reviewed Assessment and Plan Assessment: 1. Shortness of breath, acute diastolic heart failure, EF 55-60% on current TTE, bilateral pleural effusions 2. Lactic acidosis, septic shock, blood cultures positive for MSSA 3. Hypercapnic, hypoxic respiratory failure requiring BiPAP, with subsequent intubation and mechanical ventilation 4. Open sternal wound, surgically created, deep sternal wound infection with MSSA, S/P surgical exploration and debridement with daily dressing changes 5. Leukocytosis with bandemia, bandemia , WBC trending down 6. Acute kidney injury, metabolic acidosis, metabolic acidosis resolved, kidney function returning to normal after receiving dialysis 7. Acute hyperkalemia, resolved 8. Acute transaminitis secondary to hypoperfusion, resolved 9. History of hypertension, hypotensive this admission requiring vasopressors 10. Acute anemia, post transfusion PRBCs, on 11. Coronary artery disease with left main stenosis status post 2 vessel CABG on 08/10/2020 with expected postoperative acute blood loss anemia, hypotension, and urinary retention as well as candidal stomatititus 12. Hyponatremia, resolved 13. Pulmonary fibrosis, asthma 14. Hyperlipidemia, treated 15. Previous tobacco dependence 16. Obesity 17. Paroxysmal afib w/ RVR, atrial flutter, status post exclusion of the left atrial appendage using a 35 mm AtriClip, currently sinus tachycardia rhythm 18. 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 Ventilator management per pulmonary medicine. Mechanical ventilator weaning trial management per pulmonary/critical care medicine recommendations. 2. Nephrology following, avoid nephrotoxins, diuretic management per nephrology recommendations. Lasix 40 mg IV daily. 3. Infectious disease following, blood cultures from 09/01/2020, 09/02/2020, and 09/07/2020 currently show no growth. Sputum culture from 09/04/2020 final result shows no growth. Central catheter tip from the right femoral shows no growth after 48 hours. Remains on antibiotic coverage of cefepime and daptomycin. Previous blood, sputum and sternal wound cultures showed positive for MSSA. T-max temperature in the last 24 hours is 99.9 F. 4. Continue aspirin, Plavix, , statin and beta sisi. We will increase metoprolol tartrate as tolerated. currently on metoprolol tartrate 50 mg by mouth twice a day. 5. No anticoagulation at this time. 6. Will continue to monitor daily labs, chest x-rays, and ABGs. 7. 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 Sedation has been on hold for 24 hours. 8. GI/DVT prophylaxis. 9. Continue tube feeding for nutrition, per dietitian recommendations. Currently at goal rate of 54 mL per hour vital protein with automatic water flushes 30 mL every 4 hours. 10. Patient's daughter Roberta updated on her care per phone. 11. Replace electrolytes per protocol. 12. We will plan for tracheostomy tube placement to be performed by Dr. Flores Sethi and percutaneous endoscopic gastrostomy tube placement to be performed by general surgery on 09/14/2020. 13. Continue to follow culture results. 14. More recommendations to follow based on patient's clinical course. Time with Patient: Greater than 30
--- NOTE | 2020-09-12 11:15 | P.PN ---
Subjective Progress Note Date: 09/12/20 This is a 75-year-old female patient of Dr. Rich Avila, Dr. Sloan and Dr. Guadalupe. She has a past medical history significant for hypertension, hyperlipidemia, pulmonary fibrosis, asthma, obesity, remote history of tobacco dependence with smoking 32 years ago, osteoarthritis, cervical stenosis post a nterior cervical decompression, discectomy and fusion, TIA as a child at age 11 and family history of premature coronary artery disease with her father being diagnosed in his early 50s. Recently, the patient has been experiencing episodes of shortness of breath over the past 6 months with just minimal activity. She also complained of some lower extremity swelling which did resolve with some diuresis. she underwent a stress test which showed anterior wall ischemia with small reversible defect. a 2-D echocardiogram which showed mild aortic valve insufficiency, mild mitral valve regurgitation, mild tricuspid valve regurgitation and left ventricular function to be normal with an ejection fraction of 55%. Subsequently she underwent an elective heart catheterization on 07/27/2020 which demonstrated a left main stenosis with QING with a calculation of 2.6 mm, a 40% stenosis to her mid left anterior descending coronary artery and a 30% stenosis to her right coronary artery. Due to the patient's symptoms and findings on her heart catheterization of left main stenosis a consult was placed to Dr. Sethi from cardiothoracic surgery for further evaluation and treatment recommendations. During her preoperative workup her serum sodium level was found to be 120 and was admitted prior to surgery for treatment of hyponatremia. Last admission On 08/06/2020-08/19/20 the patient was admitted to the hospital for treatment of her hyponatremia, and once her hyponatremia was resolved on 08/10/2020, asubsequently taken to the operating room where Dr. Sethi performed a double vessel coronary artery bypass grafting surgery using the left internal mammary artery to left anterior setting coronary artery, a reverse greater saphenous vein graft from the aorta to the first obtuse marginal coronary artery, endoscopic harvesting of the left greater saphenous vein from the groin Upon completion of the surgery the patient was transferred to the intensive care unit where she was recovered, monitored hemodynamically and where she progressed cardiac rehabilitation phase Her oxygen was titrated down, she continued to work with physical/occupational therapy and cardiac rehabilitation, she was tolerating an oral diet, her pain was well controlled without narcotics and she was ready to be discharged home with [facility] care on postoperative day #9. Did not require home O2 on last admission however she required new medication changes including diuretics during that last admission. Patient comes in in worsening shortness of breath anasarca, no chest pain, has BARKER, edma without leg pain new medications from last visit was compliant, requiring lipitor 75bid, tolvaptan. meotprolol 75 bid plavix, lasix 40 mg daily losartain 25 asa 325, ferrous sulfate and fluconazole. patient comes in now for CHF, anarsarc ely pleural effusion, consult with dr Sethi. and cardiology, if okay will be cardiothoracic surgeon can also perform the thoracentesis, however with hypoxemia, also have requested Dr. Gamboa's services. Patient has a hemoglobin of 7.0 on and 3, platelet count of 305, hemoglobin right to admission was 8.0 denies any Hemoccult stools, creatinine was 1.60 from a previous of 0.9 blood pressure is in the low 90s systolic, pulse ox, 90 on 4 L nasal cannula, patient was not discharged with home O2 during her last admission 08/24: A-Team was called for mental status changes. Patient was found to have a blood pressure 99/65, heart rate of 85 and pulse ox of 96% on a nonrebreather with respiratory rate of 32. Patient was transferred to the ICU. She was star lefty on vancomycin and cefepime. Patient has been seen by cardiology with plan to continue vasopressor support, patient may need pleurocentesis. Stat echocardiogram was done to rule out pericardial effusion or tamponade. Patient has been seen by nephrology for acute kidney injury secondary to ATN secondary to hypotension and cardiorenal syndrome. Patient is currently on bicarb drip, status post Lasix 80 mg IV once. Renal replacement therapy to be initiated immediately. Vascular consult in place for a dialysis catheter placement and start hemodialysis today with second treatment tomorrow. Sternal wound was producing thick yellowish brown fluid, was opened approximately 2 cm and deep culture was taken, packed and covered with 4 x 4 dressing. She is requiring vasopressors. She is hypothermic and warming blanket is in place.Patient had minimal output yesterday and none today. She is status post 2.5 L of fluids. 08/25 patient was examined in the ICU. She was able to maintain oxygenation on BiPAP overnight switch to high flow 15 m this morning. Patient did have episodes of agitation last night and was started on Seroquel. She did receive a dose of Seroquel prior to admission and was found to be resting comfortably. Patient is off pressors and bicarbonate drip and metabolic acidosis seemed to have cleared off. On evaluation of patient's lab, WBC is 14.3, hemoglobin 6.5 platelet 208 ABG this morning has a pH of 7.47 CO2 74. Bicarb 29. Sodium has improved to 126 chloride 96 BUN 43 creatinine 2.79 lactic acid has improved to 2.9 calcium 7 liver enzymes elevated AST at 2874 ALT 1469 alkaline phosphatase 192 CRP 356 BNP 13,000 UA does suggest some infection with WBC of 88 hyaline casts 33 protein 2+ urine blood trace nitrite negative leukocyte Estrace negative. Wound cultures positive for presumptive staph aureus. Patient's blood culture from yesterday are positive with presumptive staph aureus. Repeat blood cultures ordered. Patient received 1 unit of PRBCs for low hemoglobin. Urine output has improved to 20-40 mL's per hour. Patient did receive a dose of DDAVP for hyponatremia. Normal saline is running at 50 mL per hour. Did receive hemodialysis today with 2 L ultrafiltration. Patient was also noted to be in A. fib with RVR intermittently and her dose of Lopressor was increased to 25 mg every 8 hours. Continue daptomycin and cefepime for antibiotic coverage. Monitor patient's for QTC prolongation well on Seroquel. Patient has significant dehiscence of wound and may need I&D 08/26: She was intubated and placed on mechanical ventilation overnight with pulse ox of 96%, tidal volume 450, FiO2 50, PEEP of 5. Temperature max last evening was 101.2. Heart rate 82, blood pressure 120/53. WBC 9.6, hemoglobin 10.8, platelet count 159. Sodium 134, potassium 4.7, chloride 100, CO2 25, BUN 14 creatinine 1.83. Blood sugars running between 100 2753. Total bilirubin 3.3, AST 1067, ALT 993, alkaline phosphatase 251. Magnesium 2.1. Patient is on vasopressors. library monitor atrial flutter alternating with sinus rhythm. Patient is also on propofol and Seroquel discontinued. Thoracic surgery is possible taking her to or for I&D and considering wound VAC. Patient is on Plavix. Echocardiogram reveals normal LV function and mild aortic stenosis. Patient is currently on daptomycin and cefepime per Dr. Mcintyre. Urine output remains low at 15-20 mL per hour. Should she is scheduled for third hemodialysis treatment today. Patient is scheduled for Lasix 80 mg IV this afternoon. 08/27 she remains in the ICU, intubated and mechanically ventilated. Patient is going to the OR for debridement today. Patient remains intubated on 50% FiO2 and PEEP of 5, assist control rate of 20volume 450. Continues to require Levophed at 11mcg/ hr . Blood clots and culture positive for MSSA. Urine output is 50-60 mL per hour. Patient continues to be on sedation from propofol at 50 max per KG permanent. IV fluids at KVO. Patient continues to have good urine output after a dose of 80 mg of IV Lasix today. Vision tolerated 2.5 L ultrafiltration yesterday and is started on hemodialysis on August 24. No holiday sedation today. Plan to continue Lasix 80 IV once daily and holding hemodialysis. Anticoagulation held for debridement. 08/28 patient remains in the ICU. Did have sternal Exploration and debridement yesterday remains sedated on propofol. Patient continues to have high temp of 101.6, to 233 tachycardic 111 blood pressure 106/51 oxygen saturation 95% on 50% FiO2. Labs suggest a leukocytosis of 24.3 hemoglobin stable at 10.7 platelet count has dipped dropped to 78, he really suggest a pH of 7.53 pCO2 30 PaO2 57, chloride of 110 potassium 3.5 and anion gap of 6 BUN 46 creatinine 0.9 calcium 7.8 ALT 3:15 alkaline phosphatase 312 AST 112 blood cultures from 08/26 positive for staph aureus. Urine output 1.2 L in 24 hours Repeat blood cultures sent today. Patient continues to be normal sinus rhythm not currently on any anticoagulation at the possibility of going for another debridement. Patient's continues to be on levo fed and still stays intubated. Continue IV Lasix. Patient initiated on IV Lasix 08/29: Patient remain in the ICU, remain on mechanical ventilation, sternal exploration and debridement was done and still have packing area within open wound at this point. Oxygenation is better patient is not 3 to be off vent at this point. Her urine output has been good and hemodynamically stable. 08/30: Patient still on mechanical ventilation, his sternum 1 and was changed today still have significant amount of infection and pus was packed still open. Patient remain on nafcillin and Moni mycin. Still having positive blood culture. 08/31: Patient is more awake today doing trial of weaning parameter try to get patient off the respirator, her incision and infection along the sternum is no change still have packing on still on IV antibiotics. Hemodynamically is more stable. 09/01: Patient evaluated in the ICU, continues on mechanical ventilation. Wound packing was removed yesterday, purulence was noted on the packing, deep near the heart and purulence around the heart. She continues on IV clindamycin and nafcillin. Patient was taken off sedation yesterday for a trial of weaning, but she became hypertensive and tachypneic so she is placed back on sedation. 09/02: Patient remains intubated and on mechanical ventilation with tidal volume 400, FiO2 of 50% and PEEP of 5. Patient has been off sedation since Monday. She is receiving OG tube feedings. She appears to be opening meaning her eyes and can shake her head. Otherwise not moving extremities. She has a wound VAC in place to the sternal wound. Wound cultures and blood culture positive for MSSA. She is scheduled for sternal wound excision and debridement with flap reconstruction and graft tomorrow with Dr. Whittaker. Repeat blood work reveals WBC of 13.6, hemoglobin 8.5. BUN 66 and creatinine 1.62, potassium 3.2 and has been replaced, blood sugars running between 107 and 132. Because renal functioning is worsening, nephrology has recommended holding nafcillin. Repeat chest x-ray reveals correlate for pneumonia, edema, ARDS. 09/03: She remains in the intensive care unit intubated and on mechanical venti lation with tidal volume 400, FiO2 40, PEEP of 5. Patient is awake with eyes open. She nodded her head no to having pain. She had a temperature this morning of 101.6 at 6 AM. Antibiotics are currently in the form of Kefzol. Repeat chest x-ray was done this morning and report is pending. Patient has been seen by neurology and doubt critical illness neuropathy. CAT scan of the brain and cervical spine done that showed no acute fracture or dislocation in the cervical spine. No acute intracranial hemorrhage, mass effect or midline shift. Ongoing airspace disease. Cardiology has recommended reinitiating statin. Temperature max 101.6, heart rate 101, blood pressure 117/52, pulse ox 95%. Repeat blood work reveals WBC 15.4, hemoglobin 8.3, platelet count 243. Sodium 149, potassium 2.8, chloride 111, CO2 28, BUN 66 and creatinine 1.49. Total bilirubin 2.4, AST 43, ALT 33 and alkaline phosphatase 260. All previous blood cultures have been positive for staph aureus MSSA. A repeat blood culture on August 2029 showing no growth at 24 hours. 09/04: Yesterday, patient underwent excision of sternal wound, partial sternotomy and pectoralis flap procedure. This morning, patient had new lines done by pulmonary medicine. Dr. Mcintyre has recommended continuing Kefzol and repeat blood cultures are in progress. Repeat chest x-ray reveals rotated exam, findings similar to prior, correlate for edema, pneumonia, ARDS. Cardiothoracic surgeryhas ordered a consult with Dr. Yuan. He has evaluated patient for global weakness and does not think she has new cervical spine issues that would cause her global weakness.patient continues to have fever with temperature maximum 102.2, tachycardic in the low 100s, respiratory rate 30, blood pressure 103/60, pulse ox 98%. She remains intubated and on mechanical ventilation with tidal volume 400, FiO2 50, PEEP of 5. WBC 17.5, hemoglobin 7.2, platelet count 328. Sodium 149, potassium 3.8, chloride 115, CO2 26, BUN 59 and creatinine 1.37. Blood sugars running 129-144. Magnesium 2.6. Total bilirubin 2.0, AST 39, alkaline phosphatase 197, ALT 19.. sputum culture has been obtained. Most recent blood culture from September 02 showing no growth at 24 hours and blood culture from September 01 is no growth at 48 hours. Patient is currently on very minimal sedation. 09/05: Patient remains in the ICU, intubated and on mechanical ventilation with tidal volume 400, FI02 40% and peep 5. Patient continues to run fevers. Dr. Mcintyre has changed antibiotics to cefepime and daptomycin. Blood cultures dated September 01, , are showing no growth. Sputum culture is in process. library monitor sinus tachycardia. Heart rate has been running between 108 and 121, respiratory rate 31, blood pressure 90/32, pulse ox 98%. She remains on low dose norepinephrine. Patient is off sedation with eyes open. She is not moving extremities. She has been evaluated by orthopedic spine and spinal etiology has essentially been ruled out. Patient is also been evaluated by neurology and critical care neuropathy has also been essentially ruled out. Patient stabilized, hopefully a MRI can be performed. WBC 13.4, hemoglobin 5.4 and this was rechecked, platelet count 313, sodium 152, potassium 3.6, BUN 45 and creatinine 1.2. Patient is receiving 1 unit of packed RBCs. Nephrology is continuing IV Lasix 40 mg daily. Patient is on PEG tube feedings and tolerating. 09/06: Patient remains in intensive care unit. She is intubated and on mec hanical ventilation with tidal volume 400, FiO2 40, PEEP 5. The patient has her eyes open, she is responsive with facial movement, she is able to minimally move lower extremities. She has a fecal management system in place as well as Yu catheter with good urine output. Patient was running fevers yesterday until evening. Patient has been afebrile following a reading of 1800 last night of 100.9. She is on IV antibiotics with cefepime and daptomycin. Heart rate 95- 112, respiratory rate 28. Repeat chest x-ray reveals cardiomegaly with increased alveolar and interstitial edema and/or infiltrates bilaterally remain present. Possible ARDS. Hemoglobin today is at 8 status post She is continued on IV Lasix per nephrology. Potassium replaced. W BC 10.6, platelet count 276. Sodium 150, potassium 3.6, chloride 119, CO2 24, BUN 42 and creatinine 1.03. Blood sugar 140. Patient is receiving tube feedings at goal rate. 09/07: She remains in the intensive care unit, intubated and on mechanical ventilation with FiO2 of 40%, PEEP of 5. She remains off sedation and is awake and able to follow some minimal commands. Mature max 101.6, heart rate 104, respiratory rate 34, blood pressure 81/30, pulse ox 97%. AP blood work reveals WBC 11.8, hemoglobin 9.5, platelet count 347. Sodium 148, potassium 3.7, chloride 117, CO2 25, BUN 38 and creatinine 0.96. Blood sugar running between 112 117. Magnesium 2.0. Total bilirubin 1.5, AST 41, ALT 19, alkaline phosphatase 181. Albumin 2.4. Blood cultures on every remain without growth at 120 hours. Sputum culture has been finalized no growth. Patient is continued on cefepime and optimizing. PICC line is being inserted this morning by interventional radiology. OG tube with feedings at goal. Patient is not currently on vasopressors. 3: Patient remains in the intensive care unit intubated and on mechanical ventilation with tidal volume 400, FiO2 35 and PEEP of 5. Patient was on CPAP yesterday for about 8 hours but was unable to tolerate for only short period today. Her mental status has been labile. She is intermittently following commands with no response and staring. Patient appears to be uncomfortable. Generalized anasarca noted. She has brown liquid stool from fecal management system and we will check a C. diff toxin. Most likely diarrhea is only from tube feedings. Temperature max 101.6. Heart rate 113, respiratory rate 39, blood pressure 120/61, pulse ox 99%. Repeat chest x-ray reveals correlate for pneumonia, edema, ARDS. Repeat blood work reveals WBC 10, hemoglobin 7.4, platelet count 298. Sodium 145, potassium 3.4, chloride 114, CO2 24, BUN 33 and creatinine 0.85. Blood sugars are running between 115 and 122. Total bilirubin 1.2, AST 39, ALT 23, and phosphatase 150. Urinalysis sent last evening showed blood moderate, RBC 64, WBC 7. Blood cultures since every are showing no growth. 09/09: Patient remains in the intensive care unit intubated and on mechanical ventilation. Patient has been started on Precedex. She remains with [address] to the sternal wound. Yu catheter with good urine output. Fecal management system in place. C. difficile toxin was negative. 2. Feedings are at goal. The patient is not focusing eyes, no purposeful movements. Patient has been afebrile greater than 24 hours. Heart rate 90s, respiratory rate 30s to 40s, blood pressure 112/64, pulse ox 97%. WBC 9.0, hemoglobin 7.3, platelet count 292. Potassium 3.4 and will be replaced. Blood sugars running between 100 2049. Alkaline phosphatase 161. TSH 3.7-0. We have also added a vitamin B12 level. Lasix was increased to twice daily. Temperature max 100.6. 09/10: Patient remains in intensive care unit, intubated and on mechanical ventilation with tidal volume 400, FiO2 35, PEEP 5. Patient has been started on propofol since yesterday's eval. Temperature max 100.6, heart rate 80, respiratory rate 28, blood pressure 104/60, pulse ox 90%. Repeat blood work rev eals Connie BC 12.5, hemoglobin 7.4, platelet count 403. Electrolytes are normal. BUN 34 and creatinine 0.81. Blood sugars are running 123 236. Magnesium 2.0. AST 42, ALT 31, alkaline phosphatase 183. Chest x-ray is stable. 09/11:she remains in the intensive care unit, intubated and on mechanical ventilation. Patient has been off sedation this morning. Her eyes are open but she has no reaction, does not follow instructions. No purposeful movements.CAT scan of the cervical spine reveals C3-C7 ACDF hardware causing artifact. Thickening of the prevertebral soft tissues likely due to intubation state disc osteophyte complex contributing to moderate spinal stenosis at C3-C4. Severe le ft neural foraminal stenosis. Moderate to severe right neural foraminal stenosis at C6-C7. Degenerative grade 1 anterolisthesis at C7-T1. Thoracic spine CAT scan revealed no vertebral compression collapse. Degenerative grade 1 anterolisthesis secondary to hypertrophic facet arthropathy below the ACDF at C7-T1. Low utility for epidural abscess. No endplate erosions are seen.CAT scan of the brain reveals no acute intracranial abnormality. No enhancing intracranial lesions. Layering fluid in the mastoid air cells. repeat chest x- ray reveals correlate for pneumonia, junk congestive heart failure and pulmonary edema, ARDS. Lasix decreased to 40 mg IV once daily. free water flushes have be en discontinuedper nephrology. Patient is followed by cardiology and pulmonary medicine as well. Patient has been afebrile since September 09. Heart rate in the 90s, respiratory rate in the 20s,110/44. WBC 13.2, hemoglobin 7.7, platelet count 428. Sodium 136, potassium 3.9, , CO2 25, BUN 32 and creatinine 0.86. Blood sugars are running between 121 and 132. Alkaline phosphatase 163. Blood cultures since every have shown no growth. 09/12: patient remains in the intensive care unit, intubated and on mechanical ventilation. Patient has been off sedation this morning. Her eyes are open but she has no reaction, does not follow instructions. No purposeful movements.CAT scan of the cervical spine results noted above. Lasix decreased to 40 mg IV once daily. free water flushes have been discontinuedper nephrology. Patient is followed by cardiology and pulmonary medicine as well. Patient has been afebrile since September 09. Heart rate in the 90s, respiratory rate in the 20s,110/ 44. WBC 13.2, hemoglobin 7.7, platelet count 428. Sodium 136, potassium 3.9, [id number], CO2 25, BUN 32 and creatinine 0.86. Blood sugars are running between 121 and 132. Alkaline phosphatase 163. Blood cultures since every have shown no growth. REVIEW OF SYSTEMS Unable to obtain due to mental status change/intubation. PHYSICAL EXAMINATION Gen: This is a 75-year-old female. Patient is resting in ICU bed and appears to be comfortable. HEENT: Head is atraumatic, normocephalic. Pupils equal, round. Sclerae is anicteric. Patient intubated and on mechanical ventilation. NECK: Supple. No JVD. No lymphadenopathy. LUNGS: Diminished. No wheezes or rhonchi. No intercostal retractions. HEART: Regular rate and rhythm. 2/6 systolic murmur. Dressing to sternal wound, wound VAC, 3 RAHEEM drains with serosanguineous drainage. ABDOMEN: Soft. Bowel sounds are present. No masses. No tenderness. The catheter draining jac urine. Fecal management system with brown liquid stool. EXTREMITIES: 2+ bilat pitting edema. Generalized anasarca. NEUROLOGICAL: Patient resting comfortably in bed, eyes are open and staring, no blinking noted, patient is unresponsive and not making any purposeful movements. ASSESSMENT AND PLAN 1. Acute diastolic heart failure, (POA) EF 55%, mild AI and mild MR and mild TR, also complicated by severe protein calorie malnutrition, Cardiology consult appreciated. Continue Lasix 40 mg IV daily managed by nephrology. 2. Acute hypoxemic respiratory failure. (POA) Patient has underlying pulmonary hypertension as well, consult with coronary. Patient is intubated and on me chanical ventilation. Pulmonary medicine is managing. 3. Acute kidney injury secondary to ATN secondary to hypotension and cardiorenal syndrome. (POA) Patient is status post dialysis catheter placement, hemodialysis. Patient is followed closely by nephrology. 4. Hyperkalemia secondary to potassium supplementation, losartan and acute kidney injury as well as severe acidosis. (POA) Consult with nephrology appreciated. Continue medical management. 5. Metabolic acidosis secondary to acute kidney injury. (POA) 6. Metabolic encephalopathy secondary to acute kidney injury, acute heart failure, acute respiratory failure, metabolic acidosis and hyperkalemia. (POA) improving. 7. Sepsis with septic shock with multiorgan failure with metabolic encephalopathy, acute kidney injury, acute heart failure, acute respiratory failure, MSSA bacteremia. (POA) status post sternal exploration and sternal debridement on August 27. She requires vasopressors. Possible MSSA pneumonia on CAT scan. Patient is continued on cefepime and daptomycin. 8. Sepsis with sternal wound dehiscence. (POA) Status post sternal exploration and sternal debridement on 08/27 followed by excision of sternal wound, partial sternotomy and pectoralis flap procedure on 09/03. Infectious disease consult appreciated. Antibiotics have been transitioned to cefepime and daptomycin. 9. Acute blood loss anemia, postop, status post transfusion of 5 units of packed RBCs. Continue to monitor. 10. Hyponatremia. Continue to monitor. 11. CAD, with prior CABG performed on 08/10/2020, two-vessel, involving HOLLAND to LAD, and reverse greater saphenous vein to obtuse marginal coronary artery. Continue aspirin 325 mg daily, Plavix 75 mg daily, Toprol all 75 mg twice a day, 12. Severe protein calorie malnutrition, with anasarca and hypotension. Continue tube feedings. 13. History of pulmonary fibrosis. Continue duo nebs and albuterol 14. Asthma, mild intermittent. Continue ipratropium albuterol nebulizers 15. Hyperlipidemia. Continue statin daily 16. Hypertension. Currently hypotensive 17. GI prophylaxis. Pantoprazole 18. Critical care neuropathy essentially ruled out by and neurology. 19. DVT prophylaxis: SCDs 20. Blood sugar management in a nondiabetic. insulin scale every 6 hours. 21. Acute transaminitis secondary to hypoperfusion. 22. Chronic kidney disease stage II. Prognosis guarded DISCHARGE PLAN TBD. Impression and plan of care have been directed as dictated by the signing physician. Quynh Delacruz nurse practitioner acting as scribe for signing physician. Objective - Vital Signs Vital signs: Vital Signs Temp 99.3 F 09/12/20 04:00 Pulse 109 H 09/12/20 09:00 Resp 28 H 09/12/20 09:00 BP 169/85 09/11/20 06:00 Pulse Ox 97 09/12/20 09:00 Intake & Output 09/11/20 09/12/20 09/12/20 18:59 06:59 18:59 Intake Total 1062.761 742 318 Output Total 1905 1015 205 Balance -842.239 -273 113 Weight 87.6 kg 85.5 kg Intake: IV 326 256 189 Cefepime 2 gm In Sodium 100 100 100 Chloride 0.9% 100 ml @ 25 mls/hr IVPB Q12HR [facility] Rx #:[id number] DAPTOmycin 500 mg In 50 50 Sodium Chloride 0.9% 50 ml @ 100 mls/hr IVPB Q24HR [facility] Rx#:[id number] Dextrose 5% in Water 1, 40 000 ml @ 20 mls/hr IV . Q24H [facility] Rx#:[id number] Pressure Bag 36 36 9 Sodium Chloride 0.9% 1, 100 120 30 000 ml @ 10 mls/hr IV . Q24H [facility] Rx#:[id number] Intake, IV Titration 80.761 Amount Norepinephrine 8 mg In 30.654 Sodium Chloride 0.9% 250 ml @ 0.05 MCG/KG/MIN 8. 611 mls/hr IV .Q24H [facility] Rx#:[id number] propofoL 1,000 mg In 50.107 Empty Bag 1 bag @ Titrate IV .Q0M [facility] Rx#: [id number] Tube Feeding 396 396 99 Other 260 90 30 Output: Drainage 25 RAHEEM #2 25 RAHEEM #3 0 Urine 1880 1015 205 Other: Voiding Method Indwelling Catheter Indwelling Catheter Indwelling Catheter ABP, PAP, CO, CI - Last Documented Arterial Blood Pressure 131/51 - Labs CBC & Chem 7: 09/12/20 03:58 09/12/20 03:58 Labs: Abnormal Lab Results - Last 24 Hours (Table) 09/11/20 09/11/20 09/12/20 Range/Units 11:51 23:53 03:58 RBC 2.53 L (3.80-5.40) m/uL Hgb 7.5 L (11.4-16.0) gm/dL Hct 23.0 L (34.0-46.0) % RDW 17.5 H (11.5-15.5) % ABG pH (7.35-7.45) ABG pCO2 (35-45) mmHg ABG HCO3 (21-25) mmol/L ABG Total CO2 (19-24) mmol/L ABG O2 Saturation (94-97) % BUN (7-17) mg/dL Glucose (74-99) mg/dL POC Glucose (mg/dL) 124 H 120 H (75-99) mg/dL 09/12/20 09/12/20 09/12/20 Range/Units 03:58 05:12 06:23 RBC (3.80-5.40) m/uL Hgb (11.4-16.0) gm/dL Hct (34.0-46.0) % RDW (11.5-15.5) % ABG pH 7.51 H (7.35-7.45) ABG pCO2 34 L (35-45) mmHg ABG HCO3 28 H (21-25) mmol/L ABG Total CO2 29 H (19-24) mmol/L ABG O2 Saturation 99.0 H (94-97) % BUN 31 H (7-17) mg/dL Glucose 113 H (74-99) mg/dL POC Glucose (mg/dL) 121 H (75-99) mg/dL Microbiology - Last 24 Hours (Table) 09/07/20 09:27 Blood Culture - Preliminary Blood No Growth after 96 hours
[2020-09-12 11:39] LABS: Glucose,Whole Blood 130 mg/dL (75-99)
[2020-09-12] MEDS: ASCORBIC ACID 500 MG TAB PO SCH (12:38)
[2020-09-12] MEDS: FERROUS SULFATE ORAL ELIXIR 300 MG/5 ML CUP PO SCH (12:38)
[2020-09-12] MEDS: NOREPINEPHRINE 8 MG in SODIUM CHLORIDE 0.9% 250 ML IV SCH (14:23)
[2020-09-12] MEDS: fentaNYL (PF) 50 MCG/ML 2 ML AMP IVP PRN ×2 (15:50→23:28)
[2020-09-12 17:22] LABS: Glucose,Whole Blood 127 mg/dL (75-99)
[2020-09-12] MEDS: MELATONIN 3 MG TABLET PO SCH (20:02)
[2020-09-12 23:57] LABS: Glucose,Whole Blood 139 mg/dL (75-99)
[2020-09-13] MEDS: INSULIN ASPART (NovoLOG) 100 UNIT/ML VIAL SQ SCH ×4 (00:48→17:33)
[2020-09-13] MEDS: IPRATROPIUM-ALBUTEROL 3 ML NEB INHALATION SCH ×5 (03:21→20:40)
[2020-09-13 04:25] LABS: Anisocytosis Slight; Basophils # (A) 0.1 k/uL (0-0.2); Basophils % (A) 1 %; Eosinophils # (A) 0.4 k/uL (0-0.7); Eosinophils % (A) 3 %; HCT 23.9 % (34.0-46.0); HGB 7.5 gm/dL (11.4-16.0); Hypochromasia Moderate; Lymphocytes # (A) 2.5 k/uL (1.0-4.8); Lymphocytes % (A) 23 %; MCHC 31.4 g/dL (31.0-37.0); MCV 92.4 fL (80.0-100.0); Mean Platelet Volume 8.9; Monocytes # (A) 0.5 k/uL (0-1.0); Monocytes % (A) 5 %; Neutrophils # (A) 7.6 k/uL (1.3-7.7); Neutrophils % (A) 67 %; Platelet Count 404 k/uL (150-450); Poikilocytosis Slight; RBC 2.58 m/uL (3.80-5.40); RDW 17.5 % (11.5-15.5); WBC 11.2 k/uL (3.8-10.6)
[2020-09-13 04:40] LABS: African American GFR (CKD) >90 (>60 ml/min/1.73 sqM); Anion Gap 1 mmol/L; Blood Urea Nitrogen 34 mg/dL (7-17); Calcium 8.9 mg/dL (8.4-10.2); Carbon Dioxide 31 mmol/L (22-30); Chloride 106 mmol/L (98-107); Glucose 127 mg/dL (74-99); Non-African American GFR(CKD) 86 (>60 ml/min/1.73 sqM); Potassium 3.6 mmol/L (3.5-5.1); Sodium 138 mmol/L (137-145)
[2020-09-13] MEDS ORDERED: POTASSIUM BICARBONATE/CIT AC 20 MEQ TABLET.EFF NG-TUBE SCH ×2 (05:00→18:00)
[2020-09-13 05:25] LABS: ABG Base Excess 6.2 mmol/L; ABG HCO3 30 mmol/L (21-25); ABG Oxygen Saturation 99.2 % (94-97); ABG PCO2 39 mmHg (35-45); ABG PH 7.49 (7.35-7.45); ABG PO2 97 mmHg (83-108); ABG TCO2 31 mmol/L (19-24); Allen Test Performed? Yes
[2020-09-13] MEDS: fentaNYL (PF) 50 MCG/ML 2 ML AMP IVP PRN ×2 (05:26→15:31)
[2020-09-13 05:55] LABS: Glucose,Whole Blood 117 mg/dL (75-99)
--- NOTE | 2020-09-13 07:27 | XR ---
EXAMINATION TYPE: XR chest 1V portable DATE OF EXAM: 09/13/2020 COMPARISON: Chest x-ray 09/12/2020 HISTORY: Congestion, abnormal chest x-ray TECHNIQUE: Single frontal view of the chest is obtained. FINDINGS: Endotracheal tube, NG tube, right-sided PICC line, chest drains, overlying artifact, post median sternotomy change with left atrial appendage clip placement, post surgical changes to the cerv ical spine and pleural parenchymal changes do not show significant interval change. Cardiac mediastin al silhouette is stable. No pneumothorax or pleural effusion. Surgical clips present in the right upp er quadrant. IMPRESSION: Essentially stable exam. Correlate for pneumonia, edema, ARDS.
--- NOTE | 2020-09-13 07:28 | P.PN ---
Subjective Progress Note Date: 09/13/20 wound infection. Reevaluated today on 08/28/2020, patient remains in the ICU, intubated and mechanically ventilated. Her assist-control rate is 20, volume is 450 FiO2 is 50% PEEP was at 5 and I increased it up to 8. ABG showed a pO2 of 57 pCO2 of 30 pH of 7.53. O2 saturation on the monitor is 96%. Patient remains on norepinephrine at 0.07 mcg/kg/m, she is also on propofol at 65 mcg/kg/m. Patient is on enteral feeding. Remains on cefepime and daptomycin for her positive blood cultures/MSSA. Patient is also on Lasix at 80 mg IV push every 24 hours. Her urine output has been good. And her chest x-ray continues to show mild congestive heart failure changes. Patient has leukocytosis with WBC count 24.3, electrolytes are normal BUN is 46 creatinine 0.90. Liver enzymes are trending down slowly Patient was reevaluated today on 08/29/2020, remains intubated and mechanically ventilated. She is on assist control rate of 20 tidal volume is 450 FiO2 is 50% and PEEP of 8. ABG showed a pO2 of 56 pCO2 of 35 pH of 7.50 however her O2 saturation on the monitor is 99%. Patient remains on norepinephrine at 0.05 mcg/kg/m, he is on propofol at 70 mcg/kg/m, she is on Lasix 80 mg IV push daily, with good urine output. IV fluid mostly at KVO. Antibiotics garzon she is on cefazolin and clindamycin. Patient had MSSA in the blood and in the sternal wound. Chest x-ray continues to show evidence of pulmonary edema, and now she seems to be developing some consolidation in the right upper lobe medially. Her sternum remains open, decision regarding sternal closure will be made in the next 24-48 hours by thoracic surgery. Patient continues to have leukocytosis with WBC count of 24.2 hemoglobin is 10.6, basic metabolic profile is normal renal profile is normal not requiring any further dialysis, and she has good urine output responding well to diuretics. Liver enzymes seem to be trending down 08/30/2020 the patient remains intubated on a mechanical ventilator. This morning, she has an assist-control at the rate of 20 with tidal volume of 450 and the flow of 70 with a FiO2 of 50% with a PEEP of 8. The morning blood gases from today showed a pH of 7.55, and the pCO2 is a 35 with a pO2 of 72. Necessity ventilator changes were done. Peak airway pressure was 37. Static pressure was 32. Chest x-ray still showing diffuse bilateral pulmonary infiltrates consistent with pneumonia although possibility of an acute lung injury/ARDS cannot be completely excluded. ET tube is in a good location. The patient this morning is sedated with propofol which is running at 50 mcg/kg per minute. Sedation holiday was given this morning to evaluate her mental status. I was told yesterday that the patient did have some diminished level of consciousness once she was off the sedation. Nevertheless she was placed on sedation again to maintain synchrony with the mechanical ventilator. She is septic with staff aureus, MSSA has been cultured in her sputum, and her blood and in her sternal wound. Her current antibiotic coverage including a combination of nafcillin and clindamycin. She is afebrile. Sternal wound is being monitored by the cardiothoracic surgery team. Daily dressing changes are being done. There is still output which is purulent according to the nursing staff. Pressors and the patient is currently on norepinephrine running at 0.04 mcg/kg per minute. Renal function is improving and the creatinine is down to 0.78. The white cell count is at 19.8 with hemoglobin of 10.2 and a platelet count of 90. Liver function tests continue to improve with an AST of 68, ALT of 77 and the last blood culture was taken from 08/29/2020 was again positive for gram-positive bacteria most likely MSSA. The patient has orogastric tube in place and she is receiving vital high protein at a rate of 23 mL an hour. This is at goal for now. No abdominal distention. No increased residuals for now. She is afebrile. Progress note dated 08/31/2020. This is a 75-year-old female was admitted to the hospital on August 22, she came in for a sternal wound infection, and worsening respiratory status with heart failure. Unfortunately, she developed severe hypoxemic respiratory failure and required intubation on August 25. She was discovered to have a sternal wound infection and went to the operating room for debridement, on August 27. Microbiology is positive for methicillin sensitive staph aureus, and she remains on nafcillin and clindamycin. This patient initially had a two- vessel bypass grafting on 08/10/2020, and was discharged on 08/19/2020. Currently, the patient remains on the volume assist control mode, rate is 20, tidal volume is 400, FiO2 40%, and PEEP of 8. Blood gases show a PaO2 of 65, a PaCO2 39, and a pH is 7.58. His blood gases consistent with a relative hypoxemia, and a severe metabolic alkalosis. Currently, the norepinephrine has been weaned off. She remains on saline at 25 mL an hour, and she is currently not on any sedation. She's getting vital high protein at 23 mL an hour with a goal of 28 mL an hour. Today, regarding do a spontaneous breathing trial, on pressor support of 15, CPAP of 5. If the patient shows any signs of deterioration, such as tachycardia, tachypnea, hypertension, diaphoresis, higher respiratory rates, and/or lower tidal volumes, the patient will be switched back to the volume assist control mode with the. Progress note dated 09/01/2020. 75-year-old female admitted back on August 22. She came into the hospital with a sternal wound infection. In addition, she had worsening respiratory status, with heart failure. She developed reinaldo hypoxemic respiratory failure and required intubation on August 25. At that time, she was discovered to have a sternal wound infection, secondary to staph aureus, and went to the operating room for debridement. This was on August 27. Microbiology is positive for methicillin sensitive staph aureus, and she remains on nafcillin and clindamycin. The patient had a two-vessel bypass grafting done on August 10, and was discharged on August 19. Currently, she remains on the volume assist control modality, the rate of 20, tidal volume 400, FiO2 50%, and PEEP of 5. This morning's blood gases, show a PaO2 of 58, a PaCO2 of 40, and a pH is 7.61. These arterial blood gases are consistent with hypoxemia, and a severe metabolic alkalosis. The FiO2 was increased from 40-50%. Currently, she is on propofol at 20 mcg/kg/m, saline at 15 mL an hour, and vital high protein at 54 mL an hour, which is goal. Today, we are going to ensure that her potassium exceeds 4.5, DC her Lasix, and add Diamox 500 mg a day. We also increased the FiO2 earlier this morning to 50%. She will not wean with his profound metabolic alkalosis, and likely, we will hypoventilate and retain carbon dioxide, to balance out her pH. Hence, it's imperative that we treat the alkalosis aggressively. Progress note dated 09/04/2020. 75-year-old female, admitted back on August 22. She came into the hospital with a sternal wound infection. She had worsening respiratory status with heart failure, and developed reinaldo hypoxemic respiratory failure and required intubat ion on 08/25. At that time, she was discovered to have a sternal wound infection secondary to staph aureus, and went to the operating room on 08/27, for debridement. Microbiology was positive for methicillin sensitive staph aureus. The patient had a two-vessel bypass grafting done on 08/10/2020, and was discharged on 08/19. She remains on the mechanical ventilator. She is on the volume assist control mode, rate of 20, tidal volume 400, FiO2 50%, and a PEEP of 5. She's currently on norepinephrine at 6.1 g her minute, D5W with half-normal saline and 20 mEq of potassium at 75 mL an hour, and tube feeds are currently on hold. This morning, we put a right femoral triple-lumen catheter in, as well as a right brachial arterial line. She received both fentanyl and Nimbex for the procedure. She is also postop day #1, status post excision of sternal wound, right pectoralis major myocutaneous flap, and left pectoralis major myocutaneous flap procedure. The patient's currently reasonably stable in the intensive care unit. No plans on any weaning her extubation at this time. Current laboratory data includes a white count of 17.5, hemoglobin 7.2, hematocrit 23.4, and platelet count 328,000. Morning arterial blood gas shows a PaO2 of 98, a PaCO2 of 34, and pH is 7.48. This blood gases consistent with normoxemia, and a mild respiratory and metabolic alkalosis. Sodium is 149, po tassium is 3.8, chloride 115, CO2 26, anion gap 8, BUN 59, creatinine 1.37. Chest x-ray shows bilateral infiltrates, which could relate to either pneumonia or pulmonary edema. X-ray is unchanged. Progress note dated 09/05/2020. 75-year-old female, admitted back on 08/22. Patient came into the hospital with a sternal wound infection, and developed worsening respiratory status, with heart failure, and reinaldo hypoxemic respiratory failure, requiring intubation on 08/25. At that time, she was discovered to have a sternal wound infection, secondary to staph aureus, and went to the operating room on 08/27, for debridement. Microbiology was positive for methicillin sensitive staph aureus. The patient had a two-vessel bypass grafting done on 08/10/2020, and was discharged home on 08/19. Currently, the patient remains on the ventilator. She is on the volume assist control mode, rate of 20, tidal volume 400, FiO2 40%, PEEP of 5. Arterial blood gases show a PaO2 of 150, PaCO2 35, pH is 7.49. The blood gases are consistent with hyperoxia, and a mild respiratory alkalosis. The patient will have a spontaneous breathing trial today, with a PSV of 80, and CPAP of 5. She's currently getting vital high protein at 54 mL an hour which is goal, and, D5.45, with 20 of potassium, at 20 mL an hour. She is on a small dose of norepinephrine, which is 0.04 g kilogram per minute, or 3.6 mcg /m. The patient is postop day #2, status post excision of sternal wound, with a right pectoralis major myocutaneous flap, and a left pectoralis major myocutaneous flap procedure. White blood count is 13.4, hemoglobin is only 5.4, hematocrit 17.2, and platelet count 313,000. She is currently getting blood. Sodium is 152, potassium 3.6, chlorides 120, carbon dioxide 26, anion gap 6, BUN 45, and creatinine 1.2. The IVs changed from D5 0.45, to just plain dextrose. Progress note dated 09/06/2020. 75-year-old female, admitted back on 08/22/2020. The patient initially came into the hospital with a sternal wound infection, with developing and worsening respiratory failure CHF, and profound hypoxemia. The patient required intubation and mechanical ventilation on 08/25/2020. At that time, he was discovered to have a sternal wound infection secondary to Staphylococcus aureus, and went to the operating room on 08/27/2020 for debridement. Microbiology was positive for methicillin sensitive staph aureus. The patient initially had a two-vessel bypass grafting, on 08/10/2020, and was discharged home 9 days later, on 08/19/2020. The patient remains on the ventilator, on the volume assist control mode, rate of 20, tidal volume 400, FiO2 40%, to be reduced down to 35%, and a PEEP of 5. Arterial blood gases show a PaO2 of 114, PaCO2 of 35, and a pH of 7.45. These blood gases consistent with a mild respiratory alkalosis, and mild hyperoxia. The patient is getting dextrose, at 20 mL an hour, saline at 10 mL an hour, of vital high protein at 54 mL an hour, which is goal, and she will be given a spontaneous breathing trial today on pressure support of 10, and CPAP of 5. Yesterday, on PSV 8, CPAP 5, she only lasted 5 minutes with her trial. In my opinion, unless the patient starts making significant progress, she likely will be a candidate for a tracheostomy and PEG tube procedure. Today's labs show a white count of 10.6, hemoglobin 8, hematocrit 25, and a platelet count of 276,000. Sodium is 150, potassium 3.6, chlorides 119, carbon dioxide 24, anion gap 7, BUN 42, and creatinine 1.03. Rest of the labs are reviewed. Chest x- rays shows cardiomegaly, with increased alveolar and interstitial edema and/or infiltrate laterally. Chest x-ray is unchanged. on 09/07/2020 the patient is being seen for a follow-up. The patient is off sedation and she is wide awake and following commands and answering questions appropriately while her being intubated on a mechanical ventilator. She is still profoundly weak. She can wiggle her toes and fingers. She is unable to raise her arms against gravity.. As such the patient is profoundly weak. She does have normal reflexes in all 4 extremities as such I think this is a myopathy rather than a underlying neuropathy processes underlying her weakness. There was a concern of epidural abscess/discitis. CAT scan of the cervical spine showed no evidence of any abnormalities and the patient was seen by neurology. EEG done earlier showed background slowing and moderate to severe degree of slowing suggestive of diffuse cerebral dysfunction/metabolic encephalopathy. No seizure activity was noted. The hardware and the cervical spine has been stable. No loosening.She was on a mechanical ventilator. Earlier this morning she was assist control mode at a tidal volume of 400 with a FiO2 of 35% with a PEEP of 5. I switched her to a pressure support of 8 and a PEEP of 5 with an FiO2 of 35%. Her med ventilation still elevated at 13.5 L per minute. She is able to generate a tidal volume of 3 80 mL and the respiratory rate is around 33. Despite her tachypnea, she states that she is breathing comfortably. Surgical wound site over the sternum is dry clean and intact. The patient has 3 separate RAHEEM drains and output is serosanguineous at this point in time. She has a fecal management system in place with output being minimal. The patient is receiving enteral feeding via a G-tube and she is on vital high protein at the rate of 54 mL an hour and the patient is also receiving free water supplements 400 mL every 4 hours. Her sodium level is down to 148. She is also on D5 water running at 20 mL an hour. She is afebrile. Antibiotic coverage has included a combination of cefepime and daptomycin. No fever. Most recent blood cultures From 09/01/2020 and 09/02/2020 and 09/03/2020 were all negative and a sputum culture from 09/04/2020 was also negative. The chest x- ray showing some bilateral pulmonary infiltrates.. The patient is awake. She has a adequate cough at this point in time. On today's evaluation of 09/08/2020, the patient is being seen in follow-up. The patient remains off sedation and she is wide awake. She is still weak and motor weakness is been an ongoing issue. She is moving her legs and she is able to raise her feet against gravity. She also is able to get as with her hands and she is able to move her hands rather than yesterday. Nevertheless, she is unable to raise her hands of the bed and she remains in significant amount of motor weakness. Yesterday, the patient was able to tolerate a total of 8 hours a pressure support mode of ventilation with a pressure support of 8 and a PEEP of 5. This morning, she is back on assist control mode at the rate of 20 with tidal volume of 400 and FiO2 of 35% with a PEEP of 5. The blood gases from today showed a pH of 7.48 with a pCO2 of 34 and pO2 of 98. Chest x-ray shows stable bilateral pulmonary infiltrates which is essentially unchanged compared to yesterday, probably slightly better. She does have a right sided PICC line and the findings of chest x-rays are essentially stable with stable diffuse patchy bilateral pulmonary infiltrates. ET tube remains in a good location. The patient has no significant orotracheal secretions. The white cell count at 10.0. No fever. Repeat blood cultures of been negative. The sodium level is improving and the sodium level is down to 145 and the patient is getting free water flushes 400 cc every 4 hours and she is also getting IV fluid in the form of D5W at the rate of 20 mL an hour. The patient has 3 separate RAHEEM drains and output remains serosanguineous. Output is minimal at this point in time. Her antibiotic coverage remains a combination of cefepime and daptomycin. As stated, the repeat blood cultures have been essentially negative and the patient is afebrile for now. The active issue for now is the profound weakness and the weaning process. The surgical wound site is covered with a wound VAC yet she has a fecal management system with minimal amount of output for now. Repeat 2020 patient is being seen for a follow-up. Yesterday, the patient was given a spelled his breathing trial with pressure support of 12 and a PEEP of 5. She'll assess for almost an hour and following that she became more restless and agitated and accordingly the patient was started on Precedex which is currently running at 0.3 mcg/kg/h. Subsequently she was switched back on assist control mode with tidal volume of 400 FiO2 of 35% with a PEEP of 5. She ena nued to have a higher minute ventilation and a high respiratory rate. Blood gases from this morning showed a pH of 7.50 with a pCO2 of 30 and pO2 of 78 and this is consistent with primary respiratory alkalosis. Chest x-ray findings are essentially stable. She has 3 different RAHEEM drains which are draining serosanguineous material. She also has a superficial wound VAC with minimal amount of output. No fever. No chills. White cell count is at 9. Hemoglobin stable at 7.4. Renal function stable with a creatinine of 0.8. Cardiac rhythm is sinus for now. Fluid balance +128 mL over the past 24 hours. She is afebrile. She remains on a combination of cefepime and daptomycin. Neurologically, she is awake, she is raising her legs against gravity. Motor function the arms is probably stable, if anything she is able to grasp her grasping ability is improving. She does have a weak cough. She is awake and alert and shortness of breath and she follows some simple commands although her responses not consistent. She is also receiving enteral feeding for nutritional support and she is currently on vital high protein at the rate of 50 mL an hour. On 09/10/2020 the patient is being seen for a follow-up. This morning the patient is sedated. She did have a quite often yesterday. After being off sedation for quite some time, the patient became restless, tachypneic with a high minute ventilation and she was breathing quite fast. She was having a high minute ventilation on assist control volume cycle mode of mechanical ventilation and she did the same on a pressure support mode of ventilation. Ultimately, she had to be sedated and currently she is on propofol running at 40 mcg/kg per minute. She is on a mechanical ventilator and her minute ventilation has dropped considerably and her minute ventilation this morning is down to 12 and she is able to generate a tidal volume of about 400 and the respiratory rate is in the high 20s. She is on AVC plus mode with a rate of 20 and a tidal volume of 400 with a FiO2 of 35% with a PEEP of 5. Inspiratory time is at 0.8 seconds and her I:E ratio is around 1-1.5. Her chest x-ray remains unchanged with bilateral pulmonary infiltrates. Orotracheal tube is in a good location. The patient has RAHEEM drains in place and output is also serosanguineous. She is afebrile. White cell count was at 12. No significant oral secretions. Repeat cultures of been all negative and she remains on the same antibiotic coverage which is a combination of cefepime and daptomycin. Balance over the past 24 hours is -250 mL. She has adequate urine output. Renal function is stable. Pro-calcitonin level was at 0.8. She is afebrile. Her T-max of 100.6 yesterday at around 8 PM yesterday. Hemoglobin today is at 7.4. Today's evaluation of 09/11/2020, I'm seeing this patient for a follow-up. She has an extensive workup yesterday which included a CAT scan of the brain that showed no acute abnormalities. There was no enhancing intracranial lesions. There was no evidence of any acute intracranial hemorrhage or ischemic changes or mass effect. CAT scan of the surgical spine was also done and the hardware in her C-spine was noted. There was C3 through C7 hardware causing significant amount of artifact. Nevertheless, there was no evidence of any epidural abscess with understanding that the imaging was quite limited because of the hardware induced artifact. There was disc osteophyte and complex arthritis causing moderate spinal canal stenosis at the level of C3-C4 along with severe left neuroforaminal stenosis. The patient also had a CAT scan of the chest that showed patchy bilateral pulmonary infiltrates. There was no significant effusion. This is most consistent with pneumonia. Few scattered mediastinal lymphadenopathy seen. Otherwise, sputum culture is negative and the patient's white cell count is at 15.2 and she is afebrile for now. She has not spiked any temperature. On today's evaluation, she is an assist-control mode at the rate of 20 with tidal volume of 400 and FiO2 of 35% with a PEEP of 5. The blood gas showed a pH of 7.47 with a pCO2 of 36 and pO2 of 96. Peak airway pressure is 28. The patient is quite sick sinus with a mechanical ventilator. She is slightly tachycardic and she is an sinus rhythm . She is sedated with propofol which is running at 4040 mics and since we started the propofol, the patient became hypotensive and the patient is requiring norepinephrine infusion and she is very much sensitive to nor epi and currently the infusion is running at 0.08 mcg/kg per minute. Her fluid balance is adequate and the patient has been in a negative fluid balance of 900 mL over the past 24 hours. The patient was receiving Lasix 40 mg IV every 12 hours which I will back off with understanding that there is no interstitial edema and pulmonary findings are essentially consistent with pneumonia. At times of antibiotic coverage, she remains on a combination of daptomycin and cefepime for now. Enterofeeding is in the form of vital high protein at the rate of 30 mL an hour. She has well-developed stool at this point in time. Surgical wound site is dry clean and intact. The wound VAC has been removed and the underlying wound is clean. RAHEEM drains are in place 09/12/2020, patient is being seen in follow-up. This morning, the patient is off sedation. Note that with her off the sedation as of yesterday to reevaluate her underlying mental status knowing that her CAT scan of the brain was negative for any acute abnormalities. She is opening her eyes spontaneously. She looks around. She is not following any commands on today's evaluation. She is afebrile and her white cell count today is at 10.6. She remains intubated on mechanical ventilator. She remained on assist control at the rate of 20 with a tidal volume of 400 and FiO2 of 35% with a PEEP of 5. Blood gases from today showed a pH of 7.51 with a pCO2 of 34 and pO2 of 93. No significant orotracheal secretions. Sternal wound is dry clean and intact. The wound VAC has been removed. The chest x-ray from today shows improvement in the bilateral pulmonary infiltrates. ET tube is in a good location. The patient has an OG in a good location. No evidence of any pneumothorax. Hemodynamically, the patient is on no pressors. She is receiving enteral feeding for nutritional support. She remains on IV cefepime and daptomycin. No new cultures are available. White cell count of 10.6 with a hemoglobin of 7.5. Rest of the electrolytes are all within normal limits. She is tolerating her enteral feeding and she is producingstool. The patient is a negative fluid balance and the patient is rec eiving daily Lasix 40 mg IVevery 24 hours. 09/13/2020, the patient remains off sedation. She opens her eyes. She follows people around the room. She moves her legs occasionally. I haven't seen in follow-up in a maintenance. She does not follow commands. No seizure activity. No agitation. She seems to be quite and comfortable. Watching her, she can move her legs clearly and I've seen this on several occasions. The patient remains on a mechanical ventilator. She is on assist control mode, VC plus, rate of 20 with a tidal volume of 400 and an inspiratory time of 0.8 with an FiO2 of 35% and a PEEP of 5. Her chest x-ray was showing improvement in the pulmonary infiltrates. The follow-up chest x-ray from today showed adequate positioning of ET tube. There is still some scattered bilateral pulmonary infiltrates, however, overall, findings are stable and the NG tube and orotracheal tube are both in a good location. Blood gases from today showed a pH of 7.49 with a pCO2 of 39 and a pO2 of 97 and this was done on an FiO2 of 35%. No significant orotracheal secretions. The patient remains on a combination of cefepime and daptomycin. No new cultures and her last positive blood culture with staph aureus was on 08/31/2020. She is afebrile. Her white cell count is at 11.2 and she has a hemoglobin of 7.5. Renal function is stable. She is receiving enteral feeding and she is on vital high protein at the rate of 55 mL an hour which is currently at goal. She is stooling. No diarrhea and she has adequate urine and stool output. She does have a cough. She does have a gag. I am going to check his weaning parameters. I do not have intentions to extubate the patient, however I may give her a prolonged once his breathing trial and assess her ability to do some spontaneous breathing on a pressure support mode of ventilation. On and off, she has been given fentanyl for pain control. RAHEEM drains are still in place with serosanguineous output and the sternum is stable clean and intact and the dressing is dry. The cardiac rhythm is sinus tachycardia and she is on Lopressor 50 mg by mouth twice a day. She is on no pressors. The fluid balance is -1000 mL and she is taking Lasix 40 mg IV on a daily basis. Objective - Vital Signs Vital signs: Vital Signs Temp 98.2 F 09/13/20 04:00 Pulse 102 H 09/13/20 05:00 Resp 26 H 09/13/20 05:00 BP 123/58 09/13/20 05:00 Pulse Ox 97 09/13/20 05:00 Intake & Output 09/12/20 09/13/20 09/13/20 18:59 06:59 18:59 Intake Total 789 836 Output Total 3882 930 Balance -1196 -94 Weight 85.5 kg 83.3 kg Intake: IV 306 203 Cefepime 2 gm In Sodium 100 100 Chloride 0.9% 100 ml @ 25 mls/hr IVPB Q12HR [facility] Rx #:[id number] DAPTOmycin 500 mg In 50 Sodium Chloride 0.9% 50 ml @ 100 mls/hr IVPB Q24HR [facility] Rx#:[id number] Pressure Bag 36 33 Sodium Chloride 0.9% 1, 120 70 000 ml @ 10 mls/hr IV . Q24H [facility] Rx#:[id number] Tube Feeding 423 543 Other 60 90 Output: Drainage 25 RAHEEM #1. 0 RAHEEM #2 25 RAHEEM #3 0 Urine 1960 730 Stool 200 Other: Voiding Method Indwelling Catheter Indwelling Catheter ABP, PAP, CO, CI - Last Documented Arterial Blood Pressure 139/53 - Exam No acute distress, currently patient is off sedation. The patient opens her eyes spontaneously. No motor function and she is not following any commands. Head exam was generally normal. There was no scleral icterus or corneal arcus. Mucous membranes were moist. HEENT examination is grossly unremarkable. Mucous membranes are moist. There is an orally placed endotracheal tube, and an orally placed OG tube. Neck supple. Full range of motion. No adenopathy thyromegaly or neck vein distention. Cardiovascular examination reveals regular rhythm rate. S1-S2 normal. No S3 or S4. A soft systolic murmur is noted, grade 2/6. Lungs reveal scattered rhonchi and crackles. Breath sounds equal bilaterally. No wheezes are appreciated. Breath sounds are diminished throughout. Exam is unchanged.. The patient has been removed and the surgical wound site over the chest area dry clean and intact and the patient also has several RAHEEM drains within the chest with serosanguineous drainage at this point in time. Note that the patient has 3 different RAHEEM drains, one on each side and one central. Output isminimal at this point in time. Abdominal exam revealed normal bowel sounds. The abdomen was soft, non-tender, and without masses, organomegaly, or appreciable enlargement of the abdominal aorta.the patient umbilical hernia which is easily reducible Extremities are intact. No cyanosis or clubbing. Mild edema is noted throughout. The patient does have a right brachial arterial line, the patient has a PICC line in the right upper extremity and she also has a femoral line in her right groin. Skin reveals a dressing over the sternal wound infection.. The RAHEEM drains are all in place and output of serosanguineous at this point in time. Neurologic examination patientis off sedation for the past 48 hours. She would grimace to painful stimulation. No focal neurological deficit at this point in time. Global weakness in all 4 extremities as discussed earlier.She is unable to assess any motor function on today's evaluation. She does not move her arms or legs. Reflexes are present and +1 in all 4 extremities.she does open up her eyes spontaneously. She looks around. She blinks. She has cranial nerve reflexes. She withdraws to deep painful stimulation. - Labs CBC & Chem 7: 09/13/20 04:03 09/13/20 04:03 Labs: Abnormal Lab Results - Last 24 Hours (Table) 09/12/20 09/12/20 09/12/20 Range/Units 11:38 17:20 23:55 WBC (3.8-10.6) k/uL RBC (3.80-5.40) m/uL Hgb (11.4-16.0) gm/dL Hct (34.0-46.0) % RDW (11.5-15.5) % ABG pH (7.35-7.45) ABG HCO3 (21-25) mmol/L ABG Total CO2 (19-24) mmol/L ABG O2 Saturation (94-97) % Carbon Dioxide (22-30) mmol/L BUN (7-17) mg/dL Glucose (74-99) mg/dL POC Glucose (mg/dL) 130 H 127 H 139 H (75-99) mg/dL 09/13/20 09/13/20 09/13/20 Range/Units 04:03 04:03 05:21 WBC 11.2 H (3.8-10.6) k/uL RBC 2.58 L (3.80-5.40) m/uL Hgb 7.5 L (11.4-16.0) gm/dL Hct 23.9 L (34.0-46.0) % RDW 17.5 H (11.5-15.5) % ABG pH 7.49 H (7.35-7.45) ABG HCO3 30 H (21-25) mmol/L ABG Total CO2 31 H (19-24) mmol/L ABG O2 Saturation 99.2 H (94-97) % Carbon Dioxide 31 H (22-30) mmol/L BUN 34 H (7-17) mg/dL Glucose 127 H (74-99) mg/dL POC Glucose (mg/dL) (75-99) mg/dL 09/13/20 Range/Units 05:52 WBC (3.8-10.6) k/uL RBC (3.80-5.40) m/uL Hgb (11.4-16.0) gm/dL Hct (34.0-46.0) % RDW (11.5-15.5) % ABG pH (7.35-7.45) ABG HCO3 (21-25) mmol/L ABG Total CO2 (19-24) mmol/L ABG O2 Saturation (94-97) % Carbon Dioxide (22-30) mmol/L BUN (7-17) mg/dL Glucose (74-99) mg/dL POC Glucose (mg/dL) 117 H (75-99) mg/dL Microbiology - Last 24 Hours (Table) 09/07/20 09:27 Blood Culture - Preliminary Blood No Growth after 120 hours Assessment and Plan Plan: 1 Acute hypoxemic and hypercapnic respiratory failure, secondary to incisional wound infection, with methicillin sensitive staph aureus, as well as pneumonia, and bilateral pleural effusions. The follow-up cultures as of 09/02/2020 were all negative and the patient remains on a combination of cefepime and daptomycin for now. Chest x-ray findings are stable with bilateral pulmonary infiltrates and interstitial infiltrates and small effusions. The pulmonary status is stable and this morning I switched a pressure support mode of ventilation at a pressure support of 10 and PEEP of 5 and FiO2 of 35% and the patient was able to generate adequate minute ventilation with a tidal volume of 400 and the rate of 27. Her chest x-ray stable and there is some limited improvement in the vital pulmonary infiltrates. She is afebrile. She is doing well on a negative fluid balance. I'm not absolutely sure she is a candidate for weaning as the patient's mentation is not completely back to its normal and she seems to be profoundly weak 2 Postop day #9, status post excision of sternal wound, right pectoralis major myocutaneous flap, and left pectoralis major myocutaneous flap. Output is serosanguineous, the output is serosanguineous and clear and the wound VAC is removed and the surgical wound site is dry clean and intact. 3 Status post readmission on August 22, and intubation for respiratory failure on 08/25/2020 and the patient continues to be intubated for now. 4 Sepsis, secondary to sternal wound infection, caused by methicillin sensitive staph aureus, with bacteremia. She is stable currently on no pressors and she is receiving Lasix 40 mg IV every 24 hours. 5 Septic shock, secondary to sternal wound infection. The patient is currently on no pressors 6 Acute kidney injury, recovered 7 Acute metabolic acidosis, secondary to acute kidney injury, recovered 8 Acute diastolic CHF with bilateral pleural effusions. 9 History of hypertension. 10 History of cervical stenosis and the patient has other to severe cervical spine stenosis at the level of C3-C4 with osteophyte formation. She also has moderate stenosis at the level of C6-C7 sodium Hardware is in place and there was no evidence of any epidural abscess for now based on the CAT scan noted from yesterday and this was CAT scan of the cervical spine. 11 Primary history of tobacco use. 12 Mild pulmonary fibrosis/interstitial lung disease. 13 Status post sternal exploration with sternal debridement, August 27. 14 Recent prior history of two-vessel bypass grafting, on August 10, with discharge on August 19. 15 Hypernatremia, recovered and the patient's sodium level has normalized. 16 enteral feeding for nutritional support and she is able to tolerate. Plan: continue ventilator support , we'll check weaning parameters and we will put the patient on pressure support mode of ventilation with a pressure support of 10 and PEEP of 5 and will continue this type of splint his breathing as long as the patient is able to tolerate without increased work of breathing or any hemodynamic changes. For now she is quite comfortable generating a minute ventilation between 8 and 9 L. I reviewed the chest x-ray. I reviewed the blood gas. The patient is on the appropriate antibiotic coverage. Sternum stable clean and intact. Chest x-ray and blood gases were reviewed and the findings are stable for now CAT scan of the brain, no stroke, no acute abnormalities on 09/10/2020 CAT scan of the chest showed bilateral patchy pulmonary infiltrates consistent with pneumonia Lasix to 40 mg every 24 hours, IV pressors have been stopped Continue enteral feeding for nutritional support continue cefepime and daptomycin Surgical follow-up on the wound and the RAHEEM drains VAC is removed, and the surgical wound site is dry clean and intact It is possible that we are headed to tracheostomy tube insertion due to prolonged respiratory failure and difficulties in weaning secondary to above- mentioned comorbidities, unless the patient shows significant improvement neurologically and ability to tolerate longer tries this point is breathing with adequate cough and adequate ability to do all my toileting. Her chest x-ray findings are stable for now. We'll continue following this patient with aggressive the consultants. She this may be a component of critical care myopathy post sepsis. The patient has significant cervical spinal stenosis. No evidence of any epidural abscess based on the most recent CAT scan findings. She has undergone previous cervical fusion and the hardware is in good positioning. Critical care evaluation that was done and more than 30 minutes Time with Patient: Greater than 30
--- NOTE | 2020-09-13 08:58 | P.PN ---
Subjective Progress Note Date: 09/13/20 Principal diagnosis: Shortness of breath, acute diastolic heart failure, bilateral pleural effusion, lactic acidosis, hypercapnic respiratory failure requiring BiPAP followed by nv chanical ventilation, deep sternal wound infection with MSSA, acute kidney injury, acute hyperkalemia, hyponatremia, acute transaminitis, hypotension requiring vasopressors use, acute anemia. Past medical history significant for coronary artery disease with left main stenosis status post 2 vessel CABG on 08/10/2020 with expected postoperative acute blood loss anemia, hypotension, and urinary retention as well as candidal stomatititus, hyponatremia, pulmonary fibrosis, asthma, hypertension, hyperlipidemia, previous tobacco dependence, obesity, osteoarthritis, cervical stenosis post anterior cervical disc decompression, discectomy and fusion, TIA as a child, family history of premature coronary artery disease. Paroxysmal Afib with RVR. POD #16 sternal exploration with sternal debridement. POD #10 removal of table and partial resection of the manubrium as well as partial sternectomy by Dr. Sethi, right pectoralis major myocutaneous flap, left pectoralis major myocutaneous flap by Dr. Whittaker. The patient is seen today 09/13/2020 in follow-up at her bedside in the intensive care unit. The patient remains intubated with mechanical ventilator support. Current mechanical ventilator settings are assist control 20, tidal volume 400, FiO2 35% and PEEP of 5. Oxygen saturations on current mechanical ventilator settings are 98%. Dr. Gamboa from pulmonary critical care medicine was in this morning and ordered a CPAP trial with CPAP 5, pressure support 10 FiO2 35%. ABG results this morning show a pH of 7.49, pCO2 39, pO2 97, HCO3 30, oxygen saturation 99% and a base excess 6.2. The patient opens her eyes with verbal stimuli, is squeezing her hand with verbal stimuli but is not wiggling her toes, moving her legs or moving her arms with verbal stimuli. She does grimace and withdrawal from painful stimuli to all 4 extremities. OG tube remains in place with vital high-protein tube feeding infusing at goal rate of 54 mL per hour with automatic water flushes 30 mL every 4 hours. Yu catheter remains in place with good urine output in the last 8 hours 345 mL. Fecal management system remains in place with liquid brown stool with 200 mL output from after FMS in the last 8 hours. Her T-max temperature in the last 24 hours was 99.9F. She remains on daptomycin and cefepime for antibiotic coverage. Most recent blood, sputum and catheter tip culture results remain showing no growth. 3 RAHEEM chest drains remaining in place with scant thin serosanguineous drainage. Sternal incision is clean, dry and intact, franc remain in place. No redness or drainage present. Gauze dressing was changed this morning. Bedside telemetry is showing sinus tachycardia heart rate 112 bpm. Laboratory results this morning show a wbc's 11.2, hemoglobin 7.5, hematocrit 23.9, sodium 138, potassium 3.6, BUN 34, creatinine 0.69. She remained hemodynamically stable and is currently on no inotropic pressor support. Sedation has been off for 48 hours. Objective - Vital Signs Vital signs: Vital Signs Temp 98.2 F 09/13/20 04:00 Pulse 99 09/13/20 08:23 Resp 29 H 09/13/20 07:00 BP 122/72 09/13/20 07:00 Pulse Ox 97 09/13/20 07:00 Intake & Output 09/12/20 09/13/20 09/13/20 18:59 06:59 18:59 Intake Total 789 902 66 Output Total 1985 1053 70 Balance -1196 -151 -4 Weight 85.5 kg 83.3 kg Intake: IV 306 216 13 Cefepime 2 gm In Sodium 100 100 Chloride 0.9% 100 ml @ 25 mls/hr IVPB Q12HR [facility] Rx #:[id number] DAPTOmycin 500 mg In 50 Sodium Chloride 0.9% 50 ml @ 100 mls/hr IVPB Q24HR [facility] Rx#:[id number] Pressure Bag 36 36 3 Sodium Chloride 0.9% 1, 120 80 10 000 ml @ 10 mls/hr IV . Q24H [facility] Rx#:[id number] Tube Feeding 423 596 53 Other 60 90 Output: Drainage 25 RAHEEM #1. 0 RAHEEM #2 25 RAHEEM #3 0 Urine 1960 853 70 Stool 200 Other: Voiding Method Indwelling Catheter Indwelling Catheter Indwelling Catheter ABP, PAP, CO, CI - Last Documented Arterial Blood Pressure 153/50 - Constitutional Constitutional Comment(s): This is a 75-year-old female patient who remains in bed in the intensive care unit. She remains intubated with mechanical ventilator support. Has been off sedation for 48 hours. Opens her eyes with verbal stimuli, not shaking her head yes or no appropriately to questions. She does squeeze her hands with verbal stimuli. Does not move her arms or legs with verbal stimuli. She does withdraw from painful stimuli to all 4 extremities. General appearance: Present: no acute distress, obese - EENT Eyes: Present: PERRLA, normal appearance. Absent: scleral icterus ENT: Present: hearing grossly normal - Neck Details: Neck supple, no JVD. Neck: Absent: lymphadenopathy - Respiratory Details: Lung sounds essentially clear throughout, diminished bilateral bases. No wheezes, rhonchi or crackles. Respirations are symmetrical and nonlabored with mechanical ventilator support. Oxygen saturations are 98% on current mechanical ventilator settings. ABG results this morning show a pH of 7.49, pCO2 39, pO2 97, HCO3 30, oxygen saturation 99% and base excess 6.2. - Cardiovascular Details: Regular rhythm and tachycardic rate. S1 and S2 present, negative for S3, gallop or murmur. Bedside telemetry showing sinus tachycardia heart rate 112 bpm. Heart hugger is in place. +1 generalized edema. Knee-high ANGEL hose and sequential compression devices in place to her bilateral lower extremities. - Gastrointestinal Gastrointestinal Comment(s): Abdomen is soft, nontender and nondistended. Active bowel sounds present in all 4 abdominal quadrants. No guarding or rigidity. No organomegaly appreciated. OG tube in place with continuous tube feeding infusing at goal rate of 54 mL per hour of vital high-protein and automatic water flushes 30 mL every 4 hours. Fecal management system in place with liquid brown stool with 200 mL output in the last 8 hours. - Genitourinary Genitourinary Comment(s): Yu catheter for accurate I&O. Draining clear yellow urine with 345 mL output in the last 8 hours. - Integumentary Integumentary Comment(s): Skin is warm and dry. No clubbing or cyanosis is present. Midline sternal incision is clean, dry and approximated, with franc no drainage or redness is present. Gauze dressing is clean, dry and intact. Left lower extremity EVH site is clean, dry and approximated. Healed. No drainage or redness is present. - Neurologic Neurologic Comment(s): The patient opens eyes with verbal stimuli. Squeezing hands with verbal stim margot. He does not left or move her legs with verbal stimuli. - Musculoskeletal Musculoskeletal Comment(s): Profound generalized weakness. - Psychiatric Psychiatric Comment(s): Awake and alert. - Allied health notes Allied health notes reviewed: nursing - Labs CBC & Chem 7: 09/13/20 04:03 09/13/20 04:03 Labs: Abnormal Lab Results - Last 24 Hours (Table) 09/12/20 09/12/20 09/12/20 Range/Units 11:38 17:20 23:55 WBC (3.8-10.6) k/uL RBC (3.80-5.40) m/uL Hgb (11.4-16.0) gm/dL Hct (34.0-46.0) % RDW (11.5-15.5) % ABG pH (7.35-7.45) ABG HCO3 (21-25) mmol/L ABG Total CO2 (19-24) mmol/L ABG O2 Saturation (94-97) % Carbon Dioxide (22-30) mmol/L BUN (7-17) mg/dL Glucose (74-99) mg/dL POC Glucose (mg/dL) 130 H 127 H 139 H (75-99) mg/dL 09/13/20 09/13/20 09/13/20 Range/Units 04:03 04:03 05:21 WBC 11.2 H (3.8-10.6) k/uL RBC 2.58 L (3.80-5.40) m/uL Hgb 7.5 L (11.4-16.0) gm/dL Hct 23.9 L (34.0-46.0) % RDW 17.5 H (11.5-15.5) % ABG pH 7.49 H (7.35-7.45) ABG HCO3 30 H (21-25) mmol/L ABG Total CO2 31 H (19-24) mmol/L ABG O2 Saturation 99.2 H (94-97) % Carbon Dioxide 31 H (22-30) mmol/L BUN 34 H (7-17) mg/dL Glucose 127 H (74-99) mg/dL POC Glucose (mg/dL) (75-99) mg/dL 09/13/20 Range/Units 05:52 WBC (3.8-10.6) k/uL RBC (3.80-5.40) m/uL Hgb (11.4-16.0) gm/dL Hct (34.0-46.0) % RDW (11.5-15.5) % ABG pH (7.35-7.45) ABG HCO3 (21-25) mmol/L ABG Total CO2 (19-24) mmol/L ABG O2 Saturation (94-97) % Carbon Dioxide (22-30) mmol/L BUN (7-17) mg/dL Glucose (74-99) mg/dL POC Glucose (mg/dL) 117 H (75-99) mg/dL Microbiology - Last 24 Hours (Table) 09/07/20 09:27 Blood Culture - Preliminary Blood No Growth after 120 hours - Imaging and Cardiology Chest x-ray: report reviewed, image reviewed Assessment and Plan Assessment: 1. Shortness of breath, acute diastolic heart failure, EF 55-60% on current TTE, bilateral pleural effusions 2. Lactic acidosis, septic shock, blood cultures positive for MSSA 3. Hypercapnic, hypoxic respiratory failure requiring BiPAP, with subsequent intubation and mechanical ventilation 4. Open sternal wound, surgically created, deep sternal wound infection with MSSA, S/P surgical exploration and debridement with daily dressing changes 5. Leukocytosis with bandemia, bandemia , WBC trending down 6. Acute kidney injury, metabolic acidosis, metabolic acidosis resolved, kidney function returning to normal after receiving dialysis 7. Acute hyperkalemia, resolved 8. Acute transaminitis secondary to hypoperfusion, resolved 9. History of hypertension, hypotensive this admission requiring vasopressors 10. Acute anemia, post transfusion PRBCs, on 11. Coronary artery disease with left main stenosis status post 2 vessel CABG on 08/10/2020 with expected postoperative acute blood loss anemia, hypotension, and urinary retention as well as candidal stomatititus 12. Hyponatremia, resolved 13. Pulmonary fibrosis, asthma 14. Hyperlipidemia, treated 15. Previous tobacco dependence 16. Obesity 17. Paroxysmal afib w/ RVR, atrial flutter, status post exclusion of the left atrial appendage using a 35 mm AtriClip, currently sinus tachycardia rhythm 18. 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 Ventilator management per pulmonary/critical care medicine. Currently on weaning trial CPAP 5, pressure support 10, FiO2 35%. 2. Nephrology following, avoid nephrotoxins, diuretic management per nephrology recommendations. Lasix 40 mg IV daily. 3. Infectious disease following, most recent blood, sputum and catheter tip cultures show no growth. Remains on antibiotic coverage of cefepime and daptomycin. Previous blood, sputum and sternal wound cultures showed positive for MSSA. T-max temperature in the last 24 hours is 99.9 F. 4. Continue aspirin, Plavix, , statin and beta sisi. We will increase metoprolol tartrate as tolerated. currently on metoprolol tartrate 50 mg by mouth twice a day. 5. No anticoagulation at this time. 6. Will continue to monitor daily labs, chest x-rays, and ABGs. Replace electrolytes per protocol. 7. 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 Sedation has been on hold for 48 hours. 8. GI/DVT prophylaxis. 9. Continue tube feeding for nutrition, per dietitian recommendations. Currently at goal rate of 54 mL per hour vital protein with automatic water flushes 30 mL every 4 hours. 10. Patient's daughter Roberta updated on her care per phone. 11. The patient is scheduled for a tracheostomy tube placement to be performed by Dr. Flores Sethi and percutaneous endoscopic gastrostomy tube placement to be performed by Dr. Peña on 09/15/2020. 12. More recommendations to follow based on patient's clinical course. Time with Patient: Greater than 30
[2020-09-13] MEDS: PANTOPRAZOLE 40 MG/10 ML VIAL IVP SCH (09:13)
[2020-09-13] MEDS: SODIUM CHLORIDE 0.9% 1,000 ML IV SCH (09:13)
[2020-09-13] MEDS: FUROSEMIDE 10 MG/ML 4 ML VIAL IV SCH (09:13)
[2020-09-13] MEDS: CHLORHEXIDINE GLUCONATE 15 ML CUP MUCOUS MEM SCH ×2 (09:13→20:03)
[2020-09-13] MEDS: HEPARIN SODIUM,PORCINE 5,000 UNIT/ML 1 ML VIAL SQ SCH ×2 (09:13→15:32)
[2020-09-13] MEDS: CEFEPIME 2 GM in SODIUM CHLORIDE 0.9% 100 ML IVPB SCH ×2 (09:13→20:03)
[2020-09-13] MEDS: ASPIRIN 325 MG TAB PO SCH (09:14)
[2020-09-13] MEDS: CLOPIDOGREL 75 MG TAB PO SCH (09:14)
[2020-09-13] MEDS: METOPROLOL TARTRATE 50 MG TAB PO SCH ×2 (09:14→20:03)
[2020-09-13] MEDS: DRY MOUTH SPRAY 44.3 SPRAY/44.3 ML SPRAY MUCOUS MEM SCH ×4 (09:14→22:01)
[2020-09-13] MEDS: DAPTOmycin 500 MG in SODIUM CHLORIDE 0.9% 50 ML IVPB SCH (09:14)
--- NOTE | 2020-09-13 09:33 | P.PN ---
Subjective HPI: This is a 75-year-old female past medical history significant for hypertension, hyperlipidema, pulmonary fibrosis, asthma, obesity, former smoker with smoking 32 years ago, osteoarthritis, cervical stenosis post anterior cervical decompression, discectomy and fusion, TIA as child at age 11. Over the past 6 months patient was episodes of shortness of breath and lower extremity edema. She underwent a stress test which showed anterior wall ischemia with small reversible defect. a 2-D echocardiogram which showed mild aortic valve insufficiency, mild mitral valve regurgitation, mild tricuspid valve regurgitation and left ventricular function to be normal with an ejection fraction of 55%. Subsequently she underwent an elective heart catheterization on 07/27/2020 which demonstrated a left main stenosis, a 40% stenosis to her mid left anterior descending coronary artery and a 30% stenosis to her right coronary artery. Due to the patient's symptoms and findings on her heart catheterization of left main stenosis a consult was placed to Dr. Sethi from cardiothoracic surgery for further evaluation and treatment recommendations.She was admitted to the hospital from 08/06/20-08/19/20 for hyponatremia and underwent double vessel coronary artery bypass graft on 08/10/2020. She is now readmitted on 08/22/20 with respiratory failure, evidence of pneumonia, and evidence of pneumonia and dehiscense of her sternal wound. tr ansferred to ICU on 08/24. On 08/25, patient had an episode of Afib with RVR intermittently and her dose of lopressor was increaed to 25mg every 8 hours. On 08/26, patient was intubated and placed on mechanical ventilation overnight and did have atrial flutter alternating with sinus rhythm. On 08/27 she underwent debridement. 09/03 patient underwent excision of sternal wound, partial sternotomy with placement of a pectoralis flap. 09/09/2020 Patient seen and examined. Patient remains on ventilator with a FiO2 40%, PEEP of 5 with a spontaneous breathing trial. Patient is still tachypnic and very weak with inability to move her upper extremities and neck much. Her sodium has improved to 141 today. She has good urine output with the Lasix however then urine output tapers off. She is up approximately 100 mL or last 24 hours. 09/10/2020 Patient seen and examined. Patient still remains very weak. Patient has not been passing her spontaneous breathing trials. She was placed on a low-dose of norepinephrine. Lasix was increased to twice a day yesterday and sodium this morning has remained stable at 138. Hemoglobin remains stable at 7.4, mild increase in white blood cell count 12.5. 09/11/20 Patient seen and examined. Patient still very weak and minimally responsive on ventilator. Remains on a low-dose of norepinephrine. Patient receiving Lasix 40 mg IV daily. Sodium remained stable at 136. 09/12/20 Patient seen and examined. Patient unresponsive on ventilator. She does make occasional eye contact however not following commands. Sodium 137 today. Creatinine stable 0.75. 09/13/20 Patient seen and examined. Sedation has been off for 2 days and patient able to make eye contact however not following much commands however does appear to move toes on command. Remains incredibly weak. Blood pressures of been mildly elevated in the 150s to 160s secondary to weaning of sedation. Heart rates 100s to 110s. PHYSICAL EXAMINATION GEN: Patient in ICU bed, appears comfortable, anxious, on vent HEENT: Patient intubated and on mechanical ventilation CHEST EXAMINATION: Lungs are diminished to auscultation anteriorly . HEART EXAMINATION: Regular rate and rhythm. S1, S2 heard. No murmurs, gallops or rub. ABDOMEN: Soft, Positive bowel sounds. EXTREMITIES: 2+ edema in bilateral hands, 1+ bilateral pitting edema lower extremities. NEUROLOGIC EXAMINATION: Patient is somnolent, unresponsive, eyes open ASSESSMENT Acute hypoxemica Respiratory failure s/p coronary artery bypass grafting Acute on chronic diastolic heart failure- EF 55%, mild aortic regurgitation, mi ld mitral regurgitation, mild tricuspid regurgitation Wound dehiscense s/p debridement and excision and placement of pectoralis muscle flap Acute Kidney Injury- renal function now back to baseline Hypernatremia - improved Coronary artery disease- s/p CABG performed on 08/10/20 Sepsis with septic shock, with MSSA bacteremia with sternal wound dehiscence s/p sternal exploration, sternal debridement on 08/27. s/p Exicion of sternal wound, partial sternotomy, pectoralis flap on 09/03 Acute blood loss anemia- s/p 2 unit on 09/05/20 History of Hypertension- currently hypotensive on low-dose norepinephrine likely related to sedation History of Hyperlipidemia Altered mental status, extreme weakness, questionable ICU myopathy, ICU delirium versus other Hypotension, improved, suspect component of sedation PLAN -Continue dual-antiplatelet therapy aspirin daily, Plavix daily -Increase metoprolol to 75 mg twice a day. -Monitor blood pressure, likely will be somewhat elevated while sedation is held . -Continue supportive care. Await any neurologic progress. Objective - Vital Signs Vital signs: Vital Signs Temp 98.2 F 09/13/20 04:00 Pulse 99 09/13/20 08:23 Resp 29 H 09/13/20 07:00 BP 122/72 09/13/20 07:00 Pulse Ox 97 09/13/20 07:00 Intake & Output 09/12/20 09/13/20 09/13/20 18:59 06:59 18:59 Intake Total 789 902 66 Output Total 1985 1053 70 Balance -1196 -151 -4 Weight 85.5 kg 83.3 kg Intake: IV 306 216 13 Cefepime 2 gm In Sodium 100 100 Chloride 0.9% 100 ml @ 25 mls/hr IVPB Q12HR [facility] Rx #:[id number] DAPTOmycin 500 mg In 50 Sodium Chloride 0.9% 50 ml @ 100 mls/hr IVPB Q24HR [facility] Rx#:[id number] Pressure Bag 36 36 3 Sodium Chloride 0.9% 1, 120 80 10 000 ml @ 10 mls/hr IV . Q24H [facility] Rx#:[id number] Tube Feeding 423 596 53 Other 60 90 Output: Drainage 25 RAHEEM #1. 0 RAHEEM #2 25 RAHEEM #3 0 Urine 1960 853 70 Stool 200 Other: Voiding Method Indwelling Catheter Indwelling Catheter Indwelling Catheter ABP, PAP, CO, CI - Last Documented Arterial Blood Pressure 153/50 - Labs CBC & Chem 7: 09/13/20 04:03 09/13/20 04:03 Labs: Abnormal Lab Results - Last 24 Hours (Table) 09/12/20 09/12/20 09/12/20 Range/Units 11:38 17:20 23:55 WBC (3.8-10.6) k/uL RBC (3.80-5.40) m/uL Hgb (11.4-16.0) gm/dL Hct (34.0-46.0) % RDW (11.5-15.5) % ABG pH (7.35-7.45) ABG HCO3 (21-25) mmol/L ABG Total CO2 (19-24) mmol/L ABG O2 Saturation (94-97) % Carbon Dioxide (22-30) mmol/L BUN (7-17) mg/dL Glucose (74-99) mg/dL POC Glucose (mg/dL) 130 H 127 H 139 H (75-99) mg/dL 09/13/20 09/13/20 09/13/20 Range/Units 04:03 04:03 05:21 WBC 11.2 H (3.8-10.6) k/uL RBC 2.58 L (3.80-5.40) m/uL Hgb 7.5 L (11.4-16.0) gm/dL Hct 23.9 L (34.0-46.0) % RDW 17.5 H (11.5-15.5) % ABG pH 7.49 H (7.35-7.45) ABG HCO3 30 H (21-25) mmol/L ABG Total CO2 31 H (19-24) mmol/L ABG O2 Saturation 99.2 H (94-97) % Carbon Dioxide 31 H (22-30) mmol/L BUN 34 H (7-17) mg/dL Glucose 127 H (74-99) mg/dL POC Glucose (mg/dL) (75-99) mg/dL 09/13/20 Range/Units 05:52 WBC (3.8-10.6) k/uL RBC (3.80-5.40) m/uL Hgb (11.4-16.0) gm/dL Hct (34.0-46.0) % RDW (11.5-15.5) % ABG pH (7.35-7.45) ABG HCO3 (21-25) mmol/L ABG Total CO2 (19-24) mmol/L ABG O2 Saturation (94-97) % Carbon Dioxide (22-30) mmol/L BUN (7-17) mg/dL Glucose (74-99) mg/dL POC Glucose (mg/dL) 117 H (75-99) mg/dL Microbiology - Last 24 Hours (Table) 09/07/20 09:27 Blood Culture - Preliminary Blood No Growth after 120 hours
--- NOTE | 2020-09-13 10:53 | P.PN ---
Subjective Progress Note Date: 09/13/20 This is a 75-year-old female patient of Dr. Rich Avila, Dr. Sloan and Dr. Guadalupe. She has a past medical history significant for hypertension, hyperlipidemia, pulmonary fibrosis, asthma, obesity, remote history of tobacco dependence with smoking 32 years ago, osteoarthritis, cervical stenosis post a nterior cervical decompression, discectomy and fusion, TIA as a child at age 11 and family history of premature coronary artery disease with her father being diagnosed in his early 50s. Recently, the patient has been experiencing episodes of shortness of breath over the past 6 months with just minimal activity. She also complained of some lower extremity swelling which did resolve with some diuresis. she underwent a stress test which showed anterior wall ischemia with small reversible defect. a 2-D echocardiogram which showed mild aortic valve insufficiency, mild mitral valve regurgitation, mild tricuspid valve regurgitation and left ventricular function to be normal with an ejection fraction of 55%. Subsequently she underwent an elective heart catheterization on 07/27/2020 which demonstrated a left main stenosis with QING with a calculation of 2.6 mm, a 40% stenosis to her mid left anterior descending coronary artery and a 30% stenosis to her right coronary artery. Due to the patient's symptoms and findings on her heart catheterization of left main stenosis a consult was placed to Dr. Sethi from cardiothoracic surgery for further evaluation and treatment recommendations. During her preoperative workup her serum sodium level was found to be 120 and was admitted prior to surgery for treatment of hyponatremia. Last admission On 08/06/2020-08/19/20 the patient was admitted to the hospital for treatment of her hyponatremia, and once her hyponatremia was resolved on 08/10/2020, asubsequently taken to the operating room where Dr. Sethi performed a double vessel coronary artery bypass grafting surgery using the left internal mammary artery to left anterior setting coronary artery, a reverse greater saphenous vein graft from the aorta to the first obtuse marginal coronary artery, endoscopic harvesting of the left greater saphenous vein from the groin Upon completion of the surgery the patient was transferred to the intensive care unit where she was recovered, monitored hemodynamically and where she progressed cardiac rehabilitation phase Her oxygen was titrated down, she continued to work with physical/occupational therapy and cardiac rehabilitation, she was tolerating an oral diet, her pain was well controlled without narcotics and she was ready to be discharged home with [facility] care on postoperative day #9. Did not require home O2 on last admission however she required new medication changes including diuretics during that last admission. Patient comes in in worsening shortness of breath anasarca, no chest pain, has BARKER, edma without leg pain new medications from last visit was compliant, requiring lipitor 75bid, tolvaptan. meotprolol 75 bid plavix, lasix 40 mg daily losartain 25 asa 325, ferrous sulfate and fluconazole. patient comes in now for CHF, anarsarc ely pleural effusion, consult with dr Sethi. and cardiology, if okay will be cardiothoracic surgeon can also perform the thoracentesis, however with hypoxemia, also have requested Dr. Gamboa's services. Patient has a hemoglobin of 7.0 on and 3, platelet count of 305, hemoglobin right to admission was 8.0 denies any Hemoccult stools, creatinine was 1.60 from a previous of 0.9 blood pressure is in the low 90s systolic, pulse ox, 90 on 4 L nasal cannula, patient was not discharged with home O2 during her last admission 08/24: A-Team was called for mental status changes. Patient was found to have a blood pressure 99/65, heart rate of 85 and pulse ox of 96% on a nonrebreather with respiratory rate of 32. Patient was transferred to the ICU. She was star lefty on vancomycin and cefepime. Patient has been seen by cardiology with plan to continue vasopressor support, patient may need pleurocentesis. Stat echocardiogram was done to rule out pericardial effusion or tamponade. Patient has been seen by nephrology for acute kidney injury secondary to ATN secondary to hypotension and cardiorenal syndrome. Patient is currently on bicarb drip, status post Lasix 80 mg IV once. Renal replacement therapy to be initiated immediately. Vascular consult in place for a dialysis catheter placement and start hemodialysis today with second treatment tomorrow. Sternal wound was producing thick yellowish brown fluid, was opened approximately 2 cm and deep culture was taken, packed and covered with 4 x 4 dressing. She is requiring vasopressors. She is hypothermic and warming blanket is in place.Patient had minimal output yesterday and none today. She is status post 2.5 L of fluids. 08/25 patient was examined in the ICU. She was able to maintain oxygenation on BiPAP overnight switch to high flow 15 m this morning. Patient did have episodes of agitation last night and was started on Seroquel. She did receive a dose of Seroquel prior to admission and was found to be resting comfortably. Patient is off pressors and bicarbonate drip and metabolic acidosis seemed to have cleared off. On evaluation of patient's lab, WBC is 14.3, hemoglobin 6.5 platelet 208 ABG this morning has a pH of 7.47 CO2 74. Bicarb 29. Sodium has improved to 126 chloride 96 BUN 43 creatinine 2.79 lactic acid has improved to 2.9 calcium 7 liver enzymes elevated AST at 2874 ALT 1469 alkaline phosphatase 192 CRP 356 BNP 13,000 UA does suggest some infection with WBC of 88 hyaline casts 33 protein 2+ urine blood trace nitrite negative leukocyte Estrace negative. Wound cultures positive for presumptive staph aureus. Patient's blood culture from yesterday are positive with presumptive staph aureus. Repeat blood cultures ordered. Patient received 1 unit of PRBCs for low hemoglobin. Urine output has improved to 20-40 mL's per hour. Patient did receive a dose of DDAVP for hyponatremia. Normal saline is running at 50 mL per hour. Did receive hemodialysis today with 2 L ultrafiltration. Patient was also noted to be in A. fib with RVR intermittently and her dose of Lopressor was increased to 25 mg every 8 hours. Continue daptomycin and cefepime for antibiotic coverage. Monitor patient's for QTC prolongation well on Seroquel. Patient has significant dehiscence of wound and may need I&D 08/26: She was intubated and placed on mechanical ventilation overnight with pulse ox of 96%, tidal volume 450, FiO2 50, PEEP of 5. Temperature max last evening was 101.2. Heart rate 82, blood pressure 120/53. WBC 9.6, hemoglobin 10.8, platelet count 159. Sodium 134, potassium 4.7, chloride 100, CO2 25, BUN 14 creatinine 1.83. Blood sugars running between 100 2753. Total bilirubin 3.3, AST 1067, ALT 993, alkaline phosphatase 251. Magnesium 2.1. Patient is on vasopressors. monitoring coordinator atrial flutter alternating with sinus rhythm. Patient is also on propofol and Seroquel discontinued. Thoracic surgery is possible taking her to or for I&D and considering wound VAC. Patient is on Plavix. Echocardiogram reveals normal LV function and mild aortic stenosis. Patient is currently on daptomycin and cefepime per Dr. Mcintyre. Urine output remains low at 15-20 mL per hour. Should she is scheduled for third hemodialysis treatment today. Patient is scheduled for Lasix 80 mg IV this afternoon. 08/27 she remains in the ICU, intubated and mechanically ventilated. Patient is going to the OR for debridement today. Patient remains intubated on 50% FiO2 and PEEP of 5, assist control rate of 20volume 450. Continues to require Levophed at 11mcg/ hr . Blood clots and culture positive for MSSA. Urine output is 50-60 mL per hour. Patient continues to be on sedation from propofol at 50 max per KG permanent. IV fluids at KVO. Patient continues to have good urine output after a dose of 80 mg of IV Lasix today. Vision tolerated 2.5 L ultrafiltration yesterday and is started on hemodialysis on August 24. No holiday sedation today. Plan to continue Lasix 80 IV once daily and holding hemodialysis. Anticoagulation held for debridement. 08/28 patient remains in the ICU. Did have sternal Exploration and debridement yesterday remains sedated on propofol. Patient continues to have high temp of 101.6, to 233 tachycardic 111 blood pressure 106/51 oxygen saturation 95% on 50% FiO2. Labs suggest a leukocytosis of 24.3 hemoglobin stable at 10.7 platelet count has dipped dropped to 78, he really suggest a pH of 7.53 pCO2 30 PaO2 57, chloride of 110 potassium 3.5 and anion gap of 6 BUN 46 creatinine 0.9 calcium 7.8 ALT 3:15 alkaline phosphatase 312 AST 112 blood cultures from 08/26 positive for staph aureus. Urine output 1.2 L in 24 hours Repeat blood cultures sent today. Patient continues to be normal sinus rhythm not currently on any anticoagulation at the possibility of going for another debridement. Patient's continues to be on levo fed and still stays intubated. Continue IV Lasix. Patient initiated on IV Lasix 08/29: Patient remain in the ICU, remain on mechanical ventilation, sternal exploration and debridement was done and still have packing area within open wound at this point. Oxygenation is better patient is not 3 to be off vent at this point. Her urine output has been good and hemodynamically stable. 08/30: Patient still on mechanical ventilation, his sternum 1 and was changed today still have significant amount of infection and pus was packed still open. Patient remain on nafcillin and Moni mycin. Still having positive blood culture. 08/31: Patient is more awake today doing trial of weaning parameter try to get patient off the respirator, her incision and infection along the sternum is no change still have packing on still on IV antibiotics. Hemodynamically is more stable. 09/01: Patient evaluated in the ICU, continues on mechanical ventilation. Wound packing was removed yesterday, purulence was noted on the packing, deep near the heart and purulence around the heart. She continues on IV clindamycin and nafcillin. Patient was taken off sedation yesterday for a trial of weaning, but she became hypertensive and tachypneic so she is placed back on sedation. 09/02: Patient remains intubated and on mechanical ventilation with tidal volume 400, FiO2 of 50% and PEEP of 5. Patient has been off sedation since Monday. She is receiving OG tube feedings. She appears to be opening meaning her eyes and can shake her head. Otherwise not moving extremities. She has a wound VAC in place to the sternal wound. Wound cultures and blood culture positive for MSSA. She is scheduled for sternal wound excision and debridement with flap reconstruction and graft tomorrow with Dr. Whittaker. Repeat blood work reveals WBC of 13.6, hemoglobin 8.5. BUN 66 and creatinine 1.62, potassium 3.2 and has been replaced, blood sugars running between 107 and 132. Because renal functioning is worsening, nephrology has recommended holding nafcillin. Repeat chest x-ray reveals correlate for pneumonia, edema, ARDS. 09/03: She remains in the intensive care unit intubated and on mechanical venti lation with tidal volume 400, FiO2 40, PEEP of 5. Patient is awake with eyes open. She nodded her head no to having pain. She had a temperature this morning of 101.6 at 6 AM. Antibiotics are currently in the form of Kefzol. Repeat chest x-ray was done this morning and report is pending. Patient has been seen by neurology and doubt critical illness neuropathy. CAT scan of the brain and cervical spine done that showed no acute fracture or dislocation in the cervical spine. No acute intracranial hemorrhage, mass effect or midline shift. Ongoing airspace disease. Cardiology has recommended reinitiating statin. Temperature max 101.6, heart rate 101, blood pressure 117/52, pulse ox 95%. Repeat blood work reveals WBC 15.4, hemoglobin 8.3, platelet count 243. Sodium 149, potassium 2.8, chloride 111, CO2 28, BUN 66 and creatinine 1.49. Total bilirubin 2.4, AST 43, ALT 33 and alkaline phosphatase 260. All previous blood cultures have been positive for staph aureus MSSA. A repeat blood culture on August 2029 showing no growth at 24 hours. 09/04: Yesterday, patient underwent excision of sternal wound, partial sternotomy and pectoralis flap procedure. This morning, patient had new lines done by pulmonary medicine. Dr. Mcintyre has recommended continuing Kefzol and repeat blood cultures are in progress. Repeat chest x-ray reveals rotated exam, findings similar to prior, correlate for edema, pneumonia, ARDS. Cardiothoracic surgeryhas ordered a consult with Dr. Yuan. He has evaluated patient for global weakness and does not think she has new cervical spine issues that would cause her global weakness.patient continues to have fever with temperature maximum 102.2, tachycardic in the low 100s, respiratory rate 30, blood pressure 103/60, pulse ox 98%. She remains intubated and on mechanical ventilation with tidal volume 400, FiO2 50, PEEP of 5. WBC 17.5, hemoglobin 7.2, platelet count 328. Sodium 149, potassium 3.8, chloride 115, CO2 26, BUN 59 and creatinine 1.37. Blood sugars running 129-144. Magnesium 2.6. Total bilirubin 2.0, AST 39, alkaline phosphatase 197, ALT 19.. sputum culture has been obtained. Most recent blood culture from September 02 showing no growth at 24 hours and blood culture from September 01 is no growth at 48 hours. Patient is currently on very minimal sedation. 09/05: Patient remains in the ICU, intubated and on mechanical ventilation with tidal volume 400, FI02 40% and peep 5. Patient continues to run fevers. Dr. Mcintyre has changed antibiotics to cefepime and daptomycin. Blood cultures dated September 01, , are showing no growth. Sputum culture is in process. monitoring coordinator sinus tachycardia. Heart rate has been running between 108 and 121, respiratory rate 31, blood pressure 90/32, pulse ox 98%. She remains on low dose norepinephrine. Patient is off sedation with eyes open. She is not moving extremities. She has been evaluated by orthopedic spine and spinal etiology has essentially been ruled out. Patient is also been evaluated by neurology and critical care neuropathy has also been essentially ruled out. Patient stabilized, hopefully a MRI can be performed. WBC 13.4, hemoglobin 5.4 and this was rechecked, platelet count 313, sodium 152, potassium 3.6, BUN 45 and creatinine 1.2. Patient is receiving 1 unit of packed RBCs. Nephrology is continuing IV Lasix 40 mg daily. Patient is on PEG tube feedings and tolerating. 09/06: Patient remains in intensive care unit. She is intubated and on mec hanical ventilation with tidal volume 400, FiO2 40, PEEP 5. The patient has her eyes open, she is responsive with facial movement, she is able to minimally move lower extremities. She has a fecal management system in place as well as Yu catheter with good urine output. Patient was running fevers yesterday until evening. Patient has been afebrile following a reading of 1800 last night of 100.9. She is on IV antibiotics with cefepime and daptomycin. Heart rate 95- 112, respiratory rate 28. Repeat chest x-ray reveals cardiomegaly with increased alveolar and interstitial edema and/or infiltrates bilaterally remain present. Possible ARDS. Hemoglobin today is at 8 status post She is continued on IV Lasix per nephrology. Potassium replaced. W BC 10.6, platelet count 276. Sodium 150, potassium 3.6, chloride 119, CO2 24, BUN 42 and creatinine 1.03. Blood sugar 140. Patient is receiving tube feedings at goal rate. 09/07: She remains in the intensive care unit, intubated and on mechanical ventilation with FiO2 of 40%, PEEP of 5. She remains off sedation and is awake and able to follow some minimal commands. Mature max 101.6, heart rate 104, respiratory rate 34, blood pressure 81/30, pulse ox 97%. AP blood work reveals WBC 11.8, hemoglobin 9.5, platelet count 347. Sodium 148, potassium 3.7, chloride 117, CO2 25, BUN 38 and creatinine 0.96. Blood sugar running between 112 117. Magnesium 2.0. Total bilirubin 1.5, AST 41, ALT 19, alkaline phosphatase 181. Albumin 2.4. Blood cultures on every remain without growth at 120 hours. Sputum culture has been finalized no growth. Patient is continued on cefepime and optimizing. PICC line is being inserted this morning by interventional radiology. OG tube with feedings at goal. Patient is not currently on vasopressors. 3: Patient remains in the intensive care unit intubated and on mechanical ventilation with tidal volume 400, FiO2 35 and PEEP of 5. Patient was on CPAP yesterday for about 8 hours but was unable to tolerate for only short period today. Her mental status has been labile. She is intermittently following commands with no response and staring. Patient appears to be uncomfortable. Generalized anasarca noted. She has brown liquid stool from fecal management system and we will check a C. diff toxin. Most likely diarrhea is only from tube feedings. Temperature max 101.6. Heart rate 113, respiratory rate 39, blood pressure 120/61, pulse ox 99%. Repeat chest x-ray reveals correlate for pneumonia, edema, ARDS. Repeat blood work reveals WBC 10, hemoglobin 7.4, platelet count 298. Sodium 145, potassium 3.4, chloride 114, CO2 24, BUN 33 and creatinine 0.85. Blood sugars are running between 115 and 122. Total bilirubin 1.2, AST 39, ALT 23, and phosphatase 150. Urinalysis sent last evening showed blood moderate, RBC 64, WBC 7. Blood cultures since every are showing no growth. 09/09: Patient remains in the intensive care unit intubated and on mechanical ventilation. Patient has been started on Precedex. She remains with [address] to the sternal wound. Yu catheter with good urine output. Fecal management system in place. C. difficile toxin was negative. 2. Feedings are at goal. The patient is not focusing eyes, no purposeful movements. Patient has been afebrile greater than 24 hours. Heart rate 90s, respiratory rate 30s to 40s, blood pressure 112/64, pulse ox 97%. WBC 9.0, hemoglobin 7.3, platelet count 292. Potassium 3.4 and will be replaced. Blood sugars running between 100 2049. Alkaline phosphatase 161. TSH 3.7-0. We have also added a vitamin B12 level. Lasix was increased to twice daily. Temperature max 100.6. 09/10: Patient remains in intensive care unit, intubated and on mechanical ventilation with tidal volume 400, FiO2 35, PEEP 5. Patient has been started on propofol since yesterday's eval. Temperature max 100.6, heart rate 80, respiratory rate 28, blood pressure 104/60, pulse ox 90%. Repeat blood work rev eals Connie BC 12.5, hemoglobin 7.4, platelet count 403. Electrolytes are normal. BUN 34 and creatinine 0.81. Blood sugars are running 123 236. Magnesium 2.0. AST 42, ALT 31, alkaline phosphatase 183. Chest x-ray is stable. 09/11:she remains in the intensive care unit, intubated and on mechanical ventilation. Patient has been off sedation this morning. Her eyes are open but she has no reaction, does not follow instructions. No purposeful movements.CAT scan of the cervical spine reveals C3-C7 ACDF hardware causing artifact. Thickening of the prevertebral soft tissues likely due to intubation state disc osteophyte complex contributing to moderate spinal stenosis at C3-C4. Severe le ft neural foraminal stenosis. Moderate to severe right neural foraminal stenosis at C6-C7. Degenerative grade 1 anterolisthesis at C7-T1. Thoracic spine CAT scan revealed no vertebral compression collapse. Degenerative grade 1 anterolisthesis secondary to hypertrophic facet arthropathy below the ACDF at C7-T1. Low utility for epidural abscess. No endplate erosions are seen.CAT scan of the brain reveals no acute intracranial abnormality. No enhancing intracranial lesions. Layering fluid in the mastoid air cells. repeat chest x- ray reveals correlate for pneumonia, junk congestive heart failure and pulmonary edema, ARDS. Lasix decreased to 40 mg IV once daily. free water flushes have be en discontinuedper nephrology. Patient is followed by cardiology and pulmonary medicine as well. Patient has been afebrile since September 09. Heart rate in the 90s, respiratory rate in the 20s,110/44. WBC 13.2, hemoglobin 7.7, platelet count 428. Sodium 136, potassium 3.9, [id number], CO2 25, BUN 32 and creatinine 0.86. Blood sugars are running between 121 and 132. Alkaline phosphatase 163. Blood cultures since every have shown no growth. 09/12: patient remains in the intensive care unit, intubated and on mechanical ventilation. Patient has been off sedation this morning. Her eyes are open but she has no reaction, does not follow instructions. No purposeful movements.CAT scan of the cervical spine results noted above. Lasix decreased to 40 mg IV once daily. free water flushes have been discontinuedper nephrology. Patient is followed by cardiology and pulmonary medicine as well. Patient has been afebrile since September 09. Heart rate in the 90s, respiratory rate in the 20s,110/ 44. WBC 13.2, hemoglobin 7.7, platelet count 428. Sodium 136, potassium 3.9, [id number], CO2 25, BUN 32 and creatinine 0.86. Blood sugars are running between 121 and 132. Alkaline phosphatase 163. Blood cultures since every have shown no growth. 09/13: Remains in intensive care unit, intubated and on mechanical ventilation. Spontaneous respirations was attempted for approximate 40 minutes. Patient's respiration rate increased to 40 with increase in heart rate. Patient is scheduled for a trach on Monday with Dr. Sethi and a PEG tube with Dr. Oscar on Monday. WBC 11.2, hemoglobin 7.5, platelets 44. Blood sugars running from 120 to 130s. Blood pressure 170/62, patient remains afebrile, respirations 18, heart rate 108 FiO2 35 REVIEW OF SYSTEMS Unable to obtain due to mental status change/intubation. PHYSICAL EXAMINATION Gen: This is a 75-year-old female. Patient is resting in ICU bed and appears to be comfortable. HEENT: Head is atraumatic, normocephalic. Pupils equal, round. Sclerae is anicteric. Patient intubated and on mechanical ventilation. NECK: Supple. No JVD. No lymphadenopathy. LUNGS: Diminished. No wheezes or rhonchi. No intercostal retractions. HEART: Regular rate and rhythm. 2/6 systolic murmur. Dressing to sternal wound, wound VAC, 3 RAHEEM drains with serosanguineous drainage. ABDOMEN: Soft. Bowel sounds are present. No masses. No tenderness. The catheter draining jac urine. Fecal management system with brown liquid stool. EXTREMITIES: 2+ bilat pitting edema. Generalized anasarca. NEUROLOGICAL: Patient resting comfortably in bed, eyes are open and staring, no blinking noted, patient is unresponsive and not making any purposeful movements. ASSESSMENT AND PLAN 1. Acute diastolic heart failure, (POA) EF 55%, mild AI and mild MR and mild TR, also complicated by severe protein calorie malnutrition, Cardiology consult appreciated. Continue Lasix 40 mg IV daily managed by nephrology. 2. Acute hypoxemic respiratory failure. (POA) Patient has underlying pulmonary hypertension as well, consult with coronary. Patient is intubated and on mechanical ventilation. Pulmonary medicine is managing. 3. Acute kidney injury secondary to ATN secondary to hypotension and cardiorenal syndrome. (POA) Patient is status post dialysis catheter placement, hemodialysis. Patient is followed closely by nephrology. 4. Hyperkalemia secondary to potassium supplementation, losartan and acute kidney injury as well as severe acidosis. (POA) Consult with nephrology appreciated. Continue medical management. 5. Metabolic acidosis secondary to acute kidney injury. (POA) 6. Metabolic encephalopathy secondary to acute kidney injury, acute heart failu re, acute respiratory failure, metabolic acidosis and hyperkalemia. (POA) improving. 7. Sepsis with septic shock with multiorgan failure with metabolic encephalopathy, acute kidney injury, acute heart failure, acute respiratory failure, MSSA bacteremia. (POA) status post sternal exploration and sternal debridement on August 27. She requires vasopressors. Possible MSSA pneumonia on CAT scan. Patient is continued on cefepime and daptomycin. 8. Sepsis with sternal wound dehiscence. (POA) Status post sternal exploration and sternal debridement on 08/27 followed by excision of sternal wound, partial sternotomy and pectoralis flap procedure on 09/03. Infectious disease consult appreciated. Antibiotics have been transitioned to cefepime and daptomycin. 9. Acute blood loss anemia, postop, status post transfusion of 5 units of packed RBCs. Continue to monitor. 10. Hyponatremia. Continue to monitor. 11. CAD, with prior CABG performed on 08/10/2020, two-vessel, involving HOLLAND to LAD, and reverse greater saphenous vein to obtuse marginal coronary artery. Continue aspirin 325 mg daily, Plavix 75 mg daily, Toprol all 75 mg twice a day, 12. Severe protein calorie malnutrition, with anasarca and hypotension. Continue tube feedings. 13. History of pulmonary fibrosis. Continue duo nebs and albuterol 14. Asthma, mild intermittent. Continue ipratropium albuterol nebulizers 15. Hyperlipidemia. Continue statin daily 16. Hypertension. Currently hypotensive 17. GI prophylaxis. Pantoprazole 18. Critical care neuropathy essentially ruled out by and neurology. 19. DVT prophylaxis: SCDs 20. Blood sugar management in a nondiabetic. insulin scale every 6 hours. 21. Acute transaminitis secondary to hypoperfusion. 22. Chronic kidney disease stage II. Prognosis guarded DISCHARGE PLAN TBD. Impression and plan of care have been directed as dictated by the signing physician. Quynh Delacruz nurse practitioner acting as scribe for signing physician. Objective - Vital Signs Vital signs: Vital Signs Temp 99.6 F 09/13/20 08:00 Pulse 108 H 09/13/20 09:00 Resp 19 09/13/20 09:00 BP 122/72 09/13/20 07:00 Pulse Ox 96 09/13/20 09:00 Intake & Output 09/12/20 09/13/20 09/13/20 18:59 06:59 18:59 Intake Total 789 902 325 Output Total 1985 1053 220 Balance -1196 -151 105 Weight 85.5 kg 83.3 kg Intake: IV 306 216 189 Cefepime 2 gm In Sodium 100 100 100 Chloride 0.9% 100 ml @ 25 mls/hr IVPB Q12HR [facility] Rx #:[id number] DAPTOmycin 500 mg In 50 50 Sodium Chloride 0.9% 50 ml @ 100 mls/hr IVPB Q24HR [facility] Rx#:[id number] Pressure Bag 36 36 9 Sodium Chloride 0.9% 1, 120 80 30 000 ml @ 10 mls/hr IV . Q24H [facility] Rx#:[id number] Tube Feeding 423 596 106 Other 60 90 30 Output: Drainage 25 RAHEEM #1. 0 RAHEEM #2 25 RAHEEM #3 0 Urine 1960 853 220 Stool 200 Other: Voiding Method Indwelling Catheter Indwelling Catheter Indwelling Catheter ABP, PAP, CO, CI - Last Documented Arterial Blood Pressure 170/62 - Labs CBC & Chem 7: 09/13/20 04:03 09/13/20 04:03 Labs: Abnormal Lab Results - Last 24 Hours (Table) 09/12/20 09/12/20 09/12/20 Range/Units 11:38 17:20 23:55 WBC (3.8-10.6) k/uL RBC (3.80-5.40) m/uL Hgb (11.4-16.0) gm/dL Hct (34.0-46.0) % RDW (11.5-15.5) % ABG pH (7.35-7.45) ABG HCO3 (21-25) mmol/L ABG Total CO2 (19-24) mmol/L ABG O2 Saturation (94-97) % Carbon Dioxide (22-30) mmol/L BUN (7-17) mg/dL Glucose (74-99) mg/dL POC Glucose (mg/dL) 130 H 127 H 139 H (75-99) mg/dL 09/13/20 09/13/20 09/13/20 Range/Units 04:03 04:03 05:21 WBC 11.2 H (3.8-10.6) k/uL RBC 2.58 L (3.80-5.40) m/uL Hgb 7.5 L (11.4-16.0) gm/dL Hct 23.9 L (34.0-46.0) % RDW 17.5 H (11.5-15.5) % ABG pH 7.49 H (7.35-7.45) ABG HCO3 30 H (21-25) mmol/L ABG Total CO2 31 H (19-24) mmol/L ABG O2 Saturation 99.2 H (94-97) % Carbon Dioxide 31 H (22-30) mmol/L BUN 34 H (7-17) mg/dL Glucose 127 H (74-99) mg/dL POC Glucose (mg/dL) (75-99) mg/dL 09/13/20 Range/Units 05:52 WBC (3.8-10.6) k/uL RBC (3.80-5.40) m/uL Hgb (11.4-16.0) gm/dL Hct (34.0-46.0) % RDW (11.5-15.5) % ABG pH (7.35-7.45) ABG HCO3 (21-25) mmol/L ABG Total CO2 (19-24) mmol/L ABG O2 Saturation (94-97) % Carbon Dioxide (22-30) mmol/L BUN (7-17) mg/dL Glucose (74-99) mg/dL POC Glucose (mg/dL) 117 H (75-99) mg/dL Microbiology - Last 24 Hours (Table) 09/07/20 09:27 Blood Culture - Preliminary Blood No Growth after 120 hours
[2020-09-13 11:32] LABS: Glucose,Whole Blood 112 mg/dL (75-99)
[2020-09-13] MEDS: ASCORBIC ACID 500 MG TAB PO SCH (12:21)
[2020-09-13] MEDS: FERROUS SULFATE ORAL ELIXIR 300 MG/5 ML CUP PO SCH (12:21)
[2020-09-13] MEDS: NOREPINEPHRINE 8 MG in SODIUM CHLORIDE 0.9% 250 ML IV SCH (12:40)
--- NOTE | 2020-09-13 16:57 | P.GSCN ---
History of Present Illness Consult date: 09/13/20 Reason for Consult: PEG tube placement History of present illness: This is a 75-year-old female who is status post CABG. Patient is requiring PEG tube for malnutrition. She apparently is scheduled for tracheostomy Past Medical History Past Medical History: Asthma, Coronary Artery Disease (CAD), Hyperlipidemia, Hypertension, Osteoarthritis (OA) Additional Past Medical History / Comment(s): skin cancer with removals, arthritis multiple joints, back and cervical pain, ?TIA in her teens-shows up on scan?, pulmonary fibrosis, hyponatremia History of Any Multi-Drug Resistant Organisms: None Reported Past Surgical History: Cholecystectomy, Coronary Bypass/CABG, Heart Catheterization, Tonsillectomy, Tubal Ligation Additional Past Surgical History / Comment(s): 08-10-20 CABG, 2 cardiac caths without intervention, bilateral cataract removal with lens implants, skin cancer removals, cyst removed from neck, colonoscopy, cervical fusion Past Anesthesia/Blood Transfusion Reactions: No Reported Reaction Additional Past Anesthesia/Blood Transfusion Reaction / Comm: Pt has never received blood. Past Psychological History: No Psychological Hx Reported Smoking Status: Former smoker Past Alcohol Use History: None Reported Past Drug Use History: None Reported - Past Family History Brother(s) Family Medical History: Coronary Artery Disease (CAD) Additional Family Medical History / Comment(s): "bad heart" aneurysm Sister(s) Family Medical History: Cancer Additional Family Medical History / Comment(s): breast cancer Mother Family Medical History: Cancer, Coronary Artery Disease (CAD) Additional Family Medical History / Comment(s): Lymphoma, had a pacemaker. Mother at the age of 92yrs. Father Family Medical History: Coronary Artery Disease (CAD), Myocardial Infarction (DE) Additional Family Medical History / Comment(s): Father of a DE at the age of 63 yrs, diagnosed with CAD in his early 50s. Medications and Allergies Home Medications Medication Instructions Recorded Confirmed Type Ipratropium-Albuterol Nebulize 3 ml INHALATION RT-QID PRN 05/18/15 08/22/20 History [Duoneb 0.5 mg-3 mg/3 ml Soln] Ibuprofen [Motrin] 800 mg PO TID PRN 12/05/17 08/22/20 History Albuterol Sulfate [Albuterol 2 puff PO RT-Q6H PRN 08/06/20 08/22/20 History Sulfate Hfa] Acetaminophen Tab [Tylenol] 650 mg PO Q4HR PRN tab 08/19/20 08/22/20 Rx Ascorbic Acid [Vitamin C] 500 mg PO DAILY@1200 #7 tab 08/19/20 08/22/20 Rx Aspirin 325 mg PO DAILY #30 tab 08/19/20 08/22/20 Rx Atorvastatin [Lipitor] 40 mg PO DAILY #30 tab 08/19/20 08/22/20 Rx Clopidogrel [Plavix] 75 mg PO DAILY #30 tab 08/19/20 08/22/20 Rx Ferrous Sulfate [Iron (65 MG 325 mg PO W/LUNCH #7 tab 08/19/20 08/22/20 Rx Elemental)] Furosemide [Lasix] 40 mg PO DAILY #7 tablet 08/19/20 08/22/20 Rx Losartan [Cozaar] 25 mg PO DAILY@1200 #30 tab 08/19/20 08/22/20 Rx Metoprolol Tartrate [Lopressor] 75 mg PO BID #180 tab 08/19/20 08/22/20 Rx Pantoprazole [Protonix] 40 mg PO AC-BRKFST #30 tablet. 08/19/20 08/22/20 Rx Potassium Chloride ER [K-Dur 10] 10 meq PO DAILY #7 tab 08/19/20 08/22/20 Rx Sennosides-Docusate Sodium 2 each PO HS PRN #14 tab 08/19/20 08/22/20 Rx [Senokot-S] guaiFENesin-DM 600/30MG [Mucinex 2 each PO Q12HR #14 tab.er.12h 08/19/20 08/22/20 Rx Dm] Allergies Allergy/AdvReac Type Severity Reaction Status Date / Time adhesive Allergy blisters Verified 08/22/20 22:40 latex Allergy Rash/Hives Verified 08/22/20 22:40 Surgical - Exam Vital Signs Temp Pulse Resp BP Pulse Ox 98.6 F 77 22 100/72 97 08/22/20 21:30 08/22/20 21:30 08/22/20 21:30 08/22/20 21:30 08/22/20 21:30 - General On ventilator well developed, no distress - Abdomen Abdomen: soft, non tender Results - Labs 09/13/20 04:03 09/13/20 12:23 Abnormal Lab Results - Last 24 Hours (Table) 09/12/20 09/12/20 09/13/20 Range/Units 17:20 23:55 04:03 WBC 11.2 H (3.8-10.6) k/uL RBC 2.58 L (3.80-5.40) m/uL Hgb 7.5 L (11.4-16.0) gm/dL Hct 23.9 L (34.0-46.0) % RDW 17.5 H (11.5-15.5) % ABG pH (7.35-7.45) ABG HCO3 (21-25) mmol/L ABG Total CO2 (19-24) mmol/L ABG O2 Saturation (94-97) % Carbon Dioxide (22-30) mmol/L BUN (7-17) mg/dL Glucose (74-99) mg/dL POC Glucose (mg/dL) 127 H 139 H (75-99) mg/dL 09/13/20 09/13/20 09/13/20 Range/Units 04:03 05:21 05:52 WBC (3.8-10.6) k/uL RBC (3.80-5.40) m/uL Hgb (11.4-16.0) gm/dL Hct (34.0-46.0) % RDW (11.5-15.5) % ABG pH 7.49 H (7.35-7.45) ABG HCO3 30 H (21-25) mmol/L ABG Total CO2 31 H (19-24) mmol/L ABG O2 Saturation 99.2 H (94-97) % Carbon Dioxide 31 H (22-30) mmol/L BUN 34 H (7-17) mg/dL Glucose 127 H (74-99) mg/dL POC Glucose (mg/dL) 117 H (75-99) mg/dL 09/13/20 Range/Units 11:31 WBC (3.8-10.6) k/uL RBC (3.80-5.40) m/uL Hgb (11.4-16.0) gm/dL Hct (34.0-46.0) % RDW (11.5-15.5) % ABG pH (7.35-7.45) ABG HCO3 (21-25) mmol/L ABG Total CO2 (19-24) mmol/L ABG O2 Saturation (94-97) % Carbon Dioxide (22-30) mmol/L BUN (7-17) mg/dL Glucose (74-99) mg/dL POC Glucose (mg/dL) 112 H (75-99) mg/dL Microbiology - Last 24 Hours (Table) 09/07/20 09:27 Blood Culture - Final Blood No Growth after 144 hours Diabetes panel 09/13/20 09/13/20 Range/Units 04:03 12:23 Sodium 138 (137-145) mmol/L Potassium 3.6 3.9 (3.5-5.1) mmol/L Chloride 106 (98-107) mmol/L Carbon Dioxide 31 H (22-30) mmol/L BUN 34 H (7-17) mg/dL Creatinine 0.69 (0.52-1.04) mg/dL Glucose 127 H (74-99) mg/dL Calcium 8.9 (8.4-10.2) mg/dL Calcium panel 09/13/20 Range/Units 04:03 Calcium 8.9 (8.4-10.2) mg/dL Pituitary panel 09/13/20 09/13/20 Range/Units 04:03 12:23 Sodium 138 (137-145) mmol/L Potassium 3.6 3.9 (3.5-5.1) mmol/L Chloride 106 (98-107) mmol/L Carbon Dioxide 31 H (22-30) mmol/L BUN 34 H (7-17) mg/dL Creatinine 0.69 (0.52-1.04) mg/dL Glucose 127 H (74-99) mg/dL Calcium 8.9 (8.4-10.2) mg/dL Adrenal panel 09/13/20 09/13/20 Range/Units 04:03 12:23 Sodium 138 (137-145) mmol/L Potassium 3.6 3.9 (3.5-5.1) mmol/L Chloride 106 (98-107) mmol/L Carbon Dioxide 31 H (22-30) mmol/L BUN 34 H (7-17) mg/dL Creatinine 0.69 (0.52-1.04) mg/dL Glucose 127 H (74-99) mg/dL Calcium 8.9 (8.4-10.2) mg/dL Assessment and Plan Assessment: Respiratory failure Mild transient Patient will be scheduled for PEG tube placement with Dr. Crockett
[2020-09-13 17:34] LABS: Glucose,Whole Blood 104 mg/dL (75-99)
[2020-09-13 17:49] LABS: Glucose,Whole Blood 112 mg/dL (75-99)
[2020-09-13] MEDS ORDERED: POTASSIUM CHLORIDE ER 20 MEQ TAB.ER PO SCH (18:00)
[2020-09-13] MEDS: MELATONIN 3 MG TABLET PO SCH (20:03)
--- NOTE | 2020-09-13 22:28 | PN ---
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 INTERVAL HISTORY: The patient is currently afebrile. The patient is hemodynamically stable, not on pressor support. FiO2 is currently stable at 35%. No significant purulent secretions. Worsening diarrhea reported by nursing staff. PHYSICAL EXAMINATION: Blood pressure 146/57, pulse of 104, temperature 99. She is 97% on 35% FIO2. GENERAL description is an elderly female lying in bed in no distress. RESPIRATORY system: Unlabored breathing, decreased breath sounds in the bases. No wheeze. HEART S1, S2. Regular rate and rhythm. ABDOMEN: Soft. No tenderness. LAB: Hemoglobin 10.5, white count 11.2, BUN of 34, creatinine 0.69. Blood culture repeat has been negative so far. 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 The patient also has a recurrent fever and elevated white count. Concern for possible dialysis catheter infection which has been discontinued. Repeat culture negative so far. Patient is currently covered with daptomycin and cefepime and will continue. Continue supportive care. MMODL / IJN: [id number] /
[2020-09-13 23:55] LABS: Glucose,Whole Blood 126 mg/dL (75-99)
[2020-09-14] MEDS: IPRATROPIUM-ALBUTEROL 3 ML NEB INHALATION SCH ×6 (00:24→20:22)
[2020-09-14] MEDS: fentaNYL (PF) 50 MCG/ML 2 ML AMP IVP PRN ×2 (00:28→20:01)
[2020-09-14] MEDS: HEPARIN SODIUM,PORCINE 5,000 UNIT/ML 1 ML VIAL SQ SCH ×4 (00:28→23:42)
[2020-09-14 04:27] LABS: Allen Test Performed? Yes
[2020-09-14 04:28] LABS: ABG Base Excess 8.3 mmol/L; ABG HCO3 32 mmol/L (21-25); ABG Oxygen Saturation 99.3 % (94-97); ABG PCO2 40 mmHg (35-45); ABG PO2 104 mmHg (83-108); ABG TCO2 33 mmol/L (19-24)
[2020-09-14 04:38] LABS: Anisocytosis Slight; Basophils # (A) 0.1 k/uL (0-0.2); Basophils % (A) 1 %; Eosinophils # (A) 0.4 k/uL (0-0.7); Eosinophils % (A) 3 %; Hypochromasia Slight; Lymphocytes # (A) 2.7 k/uL (1.0-4.8); Lymphocytes % (A) 22 %; MCH 28.5 pg (25.0-35.0); MCV 92.1 fL (80.0-100.0); Mean Platelet Volume 8.4; Monocytes # (A) 0.6 k/uL (0-1.0); Monocytes % (A) 5 %; Neutrophils # (A) 8.3 k/uL (1.3-7.7); Neutrophils % (A) 67 %; Platelet Count 431 k/uL (150-450); Poikilocytosis Slight; RBC 2.82 m/uL (3.80-5.40); RDW 17.4 % (11.5-15.5); WBC 12.3 k/uL (3.8-10.6)
[2020-09-14 04:51] LABS: ALT 22 U/L (4-34); AST 29 U/L (14-36); African American GFR (CKD) >90 (>60 ml/min/1.73 sqM); Albumin 2.9 g/dL (3.5-5.0); Alkaline Phosphatase 158 U/L (38-126); Anion Gap 6 mmol/L; Blood Urea Nitrogen 31 mg/dL (7-17); Calcium 9.4 mg/dL (8.4-10.2); Carbon Dioxide 30 mmol/L (22-30); Chloride 105 mmol/L (98-107); Glucose 101 mg/dL (74-99); Non-African American GFR(CKD) 82 (>60 ml/min/1.73 sqM); Potassium 3.9 mmol/L (3.5-5.1); Sodium 141 mmol/L (137-145); Total Protein 7.2 g/dL (6.3-8.2)
[2020-09-14 06:02] LABS: Glucose,Whole Blood 102 mg/dL (75-99)
[2020-09-14] MEDS: INSULIN ASPART (NovoLOG) 100 UNIT/ML VIAL SQ SCH ×5 (06:28→23:42)
[2020-09-14] MEDS ORDERED: POTASSIUM BICARBONATE/CIT AC 20 MEQ TABLET.EFF NG-TUBE SCH (07:00)
[2020-09-14] MEDS: DAPTOmycin 500 MG in SODIUM CHLORIDE 0.9% 50 ML IVPB SCH (08:19)
[2020-09-14] MEDS: ASPIRIN 325 MG TAB PO SCH (08:19)
[2020-09-14] MEDS: METOPROLOL TARTRATE 50 MG TAB PO SCH ×2 (08:19→20:57)
[2020-09-14] MEDS: CEFEPIME 2 GM in SODIUM CHLORIDE 0.9% 100 ML IVPB SCH ×2 (08:19→20:57)
[2020-09-14] MEDS: PANTOPRAZOLE 40 MG/10 ML VIAL IVP SCH (08:21)
[2020-09-14] MEDS: CHLORHEXIDINE GLUCONATE 15 ML CUP MUCOUS MEM SCH ×2 (08:26→20:57)
[2020-09-14] MEDS: DRY MOUTH SPRAY 44.3 SPRAY/44.3 ML SPRAY MUCOUS MEM SCH ×4 (08:27→23:41)
--- NOTE | 2020-09-14 08:40 | P.PN ---
Subjective Progress Note Date: 09/14/20 Principal diagnosis: Shortness of breath, acute diastolic heart failure, bilateral pleural effusion, lactic acidosis, hypercapnic respiratory failure requiring BiPAP followed by ak chanical ventilation, deep sternal wound infection with MSSA, acute kidney injury, acute hyperkalemia, hyponatremia, acute transaminitis, hypotension requiring vasopressors use, acute anemia. Past medical history significant for coronary artery disease with left main stenosis status post 2 vessel CABG on 08/10/2020 with expected postoperative acute blood loss anemia, hypotension, and urinary retention as well as candidal stomatititus, hyponatremia, pulmonary fibrosis, asthma, hypertension, hyperlipidemia, previous tobacco dependence, obesity, osteoarthritis, cervical stenosis post anterior cervical disc decompression, discectomy and fusion, TIA as a child, family history of premature coronary artery disease. Paroxysmal Afib with RVR. POD #17 sternal exploration with sternal debridement. POD #11 removal of table and partial resection of the manubrium as well as partial sternectomy by Dr. Sethi, right pectoralis major myocutaneous flap, left pectoralis major myocutaneous flap by Dr. Whittaker. Patient was seen in follow-up today 09/14/2020 after bedside intensive care unit. Currently she is laying in bed, is awake with her eyes open and is tracking. She is not following any verbal commands, not squeezing her hands or wiggle her toes appropriately with verbal stimuli. Profound weakness continues. She remains intubated with mechanical ventilator support. Current mechanical ventilator settings are as follows assist control 20, VC +404/0.80, FiO2 35% PEEP of 5. ABG results this morning show a pH of 7.50, pCO2 40, pO2 104, HCO3 32, oxygen saturations 99.3% and base excess 0.3. Oxygen saturations are 97% currently. Sedation has been on hold for a few days. OG tube remains in place with tube feedings on hold at this time due to her being scheduled for a tracheostomy and PEG tube placement today. Yu catheter remains in place for accurate I's and O's, 485 mL output in the last 8 hours. Bedside telemetry showing sinus tachycardia heart rate 112 bpm. Her T-max temperature in the last 24 hours 99.6F. She remains on cefepime and daptomycin for antibiotic coverage which is managed by infectious disease. Most recent blood cultures and sputum cultures have shown no growth. Lab results today show a WBC count 12.3, hemoglobin 8.0, hematocrit 26.0, platelets 431, sodium 141, potassium 3.9, BUN 31, creatinine 0.73. Right arm PICC line remains in place and functioning. Midline sternal incision is clean, dry and approximated. No drainage or redness at present. [place] are intact. 3 chest RAHE[address] drains in place with scant serosanguineous drainage. The patient remains hemodynamically stable and is currently on no inotropic pressor support. Objective - Vital Signs Vital signs: Vital Signs Temp 98.3 F 09/14/20 08:00 Pulse 108 H 09/14/20 08:08 Resp 23 09/14/20 08:00 BP 120/84 09/14/20 08:00 Pulse Ox 97 09/14/20 08:00 Intake & Output 09/13/20 09/14/20 09/14/20 18:59 06:59 18:59 Intake Total 856 498 13 Output Total 2370 807 229 Balance -1514 -309 -216 Weight 80.1 kg Intake: IV 319 203 13 Cefepime 2 gm In Sodium 100 100 Chloride 0.9% 100 ml @ 25 mls/hr IVPB Q12HR [facility] Rx #:[id number] DAPTOmycin 500 mg In 50 Sodium Chloride 0.9% 50 ml @ 100 mls/hr IVPB Q24HR [facility] Rx#:[id number] Pressure Bag 39 33 3 Sodium Chloride 0.9% 1, 130 70 10 000 ml @ 10 mls/hr IV . Q24H [facility] Rx#:[id number] Tube Feeding 477 265 Other 60 30 Output: Drainage 52 104 RAHEEM #1. 2 4 RAHEEM #2 50 100 RAHEEM #3 0 0 Urine 2370 655 125 Stool 100 Other: Voiding Method Indwelling Catheter Indwelling Catheter Indwelling Catheter ABP, PAP, CO, CI - Last Documented Arterial Blood Pressure 163/61 - Exam This is a 75-year-old female patient remains intubated with mechanical ventilator support. Is not following any verbal commands at this time. Is awake and alert and does track with her eyes. Does remove from Dr. west. - Constitutional General appearance: Present: no acute distress, obese - EENT Eyes: Present: PERRLA, normal appearance. Absent: scleral icterus - Neck Details: Neck supple, no JVD. Neck: Absent: lymphadenopathy - Respiratory Details: Lungs sounds essentially clear throughout, diminished bilateral bases. Respirations are symmetrical and nonlabored with mechanical ventilator support. Current mechanical ventilator settings are assist control 20, VC +400/0.80, FiO2 35% and a PEEP of 5. Oxygen saturation is 97% on current mechanical ventilator settings. - Cardiovascular Details: Regular rhythm and tachycardic rate. S1 and S2 present, negative for S3, gallop or murmur. Bedside telemetry showing sinus tachycardia heart rate 112 bpm. Heart hugger is in place. Right radial arterial line in place and functioning. Right arm PICC line in place and functioning. Generalized +1 edema. - Gastrointestinal Gastrointestinal Comment(s): Abdomen is soft, nontender and nondistended. Active bowel sounds present in all 4 abdominal quadrants. No guarding or rigidity. No organomegaly appreciated. OG tube in place and currently nothing by mouth for tracheostomy and PEG tube placement today. - Genitourinary Genitourinary Comment(s): Yu catheter for accurate I&O. Draining clear yellow urine. 485 mL output in the last 8 hours. - Integumentary Integumentary Comment(s): Skin is warm and dry. No clubbing or cyanosis present. Midline sternal incision is clean, dry and approximated. See clean and dry. Gauze dressing clean and dry. Left lower extremity EVH site is clean, dry and approximated. No drainage or redness is present. Stage II pressure ulcer to her coccyx. Erythema area to her right forearm. - Neurologic Neurologic Comment(s): The patient is awake and alert and tracking with her eyes. Is not following any verbal commands at this time, is not squeezing her hands or wheezing healing her toes. She does withdraw from painful stimuli to all 4 extremities and also grimaces. - Musculoskeletal Musculoskeletal Comment(s): Profound generalized weakness. - Psychiatric Psychiatric Comment(s): Patient is awake and alert, remains intubated with mechanical ventilator support. Unable to accurately assess her orientation at this time. - Allied health notes Allied health notes reviewed: nursing - Labs CBC & Chem 7: 09/14/20 04:18 09/14/20 04:18 Labs: Abnormal Lab Results - Last 24 Hours (Table) 09/13/20 09/13/20 09/13/20 Range/Units 11:31 17:33 17:48 WBC (3.8-10.6) k/uL RBC (3.80-5.40) m/uL Hgb (11.4-16.0) gm/dL Hct (34.0-46.0) % RDW (11.5-15.5) % Neutrophils # (1.3-7.7) k/uL ABG pH (7.35-7.45) ABG HCO3 (21-25) mmol/L ABG Total CO2 (19-24) mmol/L ABG O2 Saturation (94-97) % BUN (7-17) mg/dL Glucose (74-99) mg/dL POC Glucose (mg/dL) 112 H 104 H 112 H (75-99) mg/dL Alkaline Phosphatase (38-126) U/L Albumin (3.5-5.0) g/dL 09/13/20 09/14/20 09/14/20 Range/Units 23:53 04:18 04:18 WBC 12.3 H (3.8-10.6) k/uL RBC 2.82 L (3.80-5.40) m/uL Hgb 8.0 L (11.4-16.0) gm/dL Hct 26.0 L (34.0-46.0) % RDW 17.4 H (11.5-15.5) % Neutrophils # 8.3 H (1.3-7.7) k/uL ABG pH (7.35-7.45) ABG HCO3 (21-25) mmol/L ABG Total CO2 (19-24) mmol/L ABG O2 Saturation (94-97) % BUN 31 H (7-17) mg/dL Glucose 101 H (74-99) mg/dL POC Glucose (mg/dL) 126 H (75-99) mg/dL Alkaline Phosphatase 158 H (38-126) U/L Albumin 2.9 L (3.5-5.0) g/dL 09/14/20 09/14/20 Range/Units 04:21 06:00 WBC (3.8-10.6) k/uL RBC (3.80-5.40) m/uL Hgb (11.4-16.0) gm/dL Hct (34.0-46.0) % RDW (11.5-15.5) % Neutrophils # (1.3-7.7) k/uL ABG pH 7.50 H (7.35-7.45) ABG HCO3 32 H (21-25) mmol/L ABG Total CO2 33 H (19-24) mmol/L ABG O2 Saturation 99.3 H (94-97) % BUN (7-17) mg/dL Glucose (74-99) mg/dL POC Glucose (mg/dL) 102 H (75-99) mg/dL Alkaline Phosphatase (38-126) U/L Albumin (3.5-5.0) g/dL Microbiology - Last 24 Hours (Table) 09/07/20 09:27 Blood Culture - Final Blood No Growth after 144 hours - Imaging and Cardiology Chest x-ray: report reviewed, image reviewed Assessment and Plan Assessment: 1. Shortness of breath, acute diastolic heart failure, EF 55-60% on current TTE, bilateral pleural effusions 2. Lactic acidosis, septic shock, blood cultures positive for MSSA 3. Hypercapnic, hypoxic respiratory failure requiring BiPAP, with subsequent intubation and mechanical ventilation 4. Open sternal wound, surgically created, deep sternal wound infection with MSSA, S/P surgical exploration and debridement with daily dressing changes 5. Leukocytosis with bandemia, bandemia , WBC trending down 6. Acute kidney injury, metabolic acidosis, metabolic acidosis resolved, kidney function returning to normal after receiving dialysis 7. Acute hyperkalemia, resolved 8. Acute transaminitis secondary to hypoperfusion, resolved 9. History of hypertension, hypotensive this admission requiring vasopressors 10. Acute anemia, post transfusion PRBCs, on 11. Coronary artery disease with left main stenosis status post 2 vessel CABG on 08/10/2020 with expected postoperative acute blood loss anemia, hypotension, and urinary retention as well as candidal stomatititus 12. Hyponatremia, resolved 13. Pulmonary fibrosis, asthma 14. Hyperlipidemia, treated 15. Previous tobacco dependence 16. Obesity 17. Paroxysmal afib w/ RVR, atrial flutter, status post exclusion of the left atrial appendage using a 35 mm AtriClip, currently sinus tachycardia rhythm 18. 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 Ventilator management per pulmonary/critical care medicine. 2. Nephrology following, avoid nephrotoxins, diuretic management per nephrology recommendations. Lasix 40 mg IV daily. 3. Infectious disease following, remains on cefepime and daptomycin for antibiotic coverage. Most recent blood cultures and sputum cultures negative for growth. 4. Continue aspirin, Plavix, , statin and beta sisi. We will increase metoprolol tartrate as tolerated. currently on metoprolol tartrate 50 mg by mouth twice a day. 5. No anticoagulation at this time. 6. Will continue to monitor daily labs, chest x-rays, and ABGs. Replace electrolytes per protocol. 7. 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 Sedation has been on hold for 72 hours. 8. GI/DVT prophylaxis. 9. Tube feedings currently on hold for tracheostomy and PEG tube placement today. Restart tube feedings 24 hours after PEG tube has been placed. 10. Patient's daughter Roberta updated on her care per phone. 11. The patient is scheduled for a tracheostomy tube placement to be performed by Dr. Flores Sethi and percutaneous endoscopic gastrostomy tube placement to be performed by Dr. Peña today 09/14/2020. 12. IV fluids D5 0.45 normal saline with 20 KCl at 40 mL per hour. 13. More recommendations to follow based on patient's clinical course. Time with Patient: Greater than 30
[2020-09-14] MEDS: D5-0.45% NACL WITH KCL 20MEQ/L 1,000 ML IV SCH (09:02)
[2020-09-14] MEDS ORDERED: IV FLUID CONTINUATION 1,000 ML IV ONE (10:06)
--- NOTE | 2020-09-14 10:12 | XR ---
EXAMINATION TYPE: XR chest 1V portable DATE OF EXAM: 09/14/2020 COMPARISON: 09/13/2020 HISTORY: Cough TECHNIQUE: Single frontal view of the chest is obtained. FINDINGS: ET and NG tube noted there is surgical franc. Diffuse interstitial changes with basilar consolidation and small effusion. Right-sided PICC line stable. No sizable pneumothorax. Postsurgical change overlying the cervical spine. IMPRESSION: 1. Diffuse pleural-parenchymal changes are stable correlate for diffuse pneumonia, ARDS or CHF
[2020-09-14] MEDS ORDERED: SODIUM CHLORIDE 0.9% 100 ML with ceFAZolin 2,000 MG IV ONE ×2 (10:21)
[2020-09-14] MEDS ORDERED: SODIUM CHLORIDE 0.9% 500 ML 500 ML IV ONE (10:23)
--- NOTE | 2020-09-14 10:29 | P.PN ---
Subjective Progress Note Date: 09/14/20 HISTORY OF PRESENT ILLNESS This is a 75-year-old female patient of Dr. Rich Avila, Dr. Sloan and Dr. Guadalupe. She has a past medical history significant for hypertension, hype rlipidemia, pulmonary fibrosis, asthma, obesity, remote history of tobacco dependence with smoking 32 years ago, osteoarthritis, cervical stenosis post anterior cervical decompression, discectomy and fusion, TIA as a child at age 11 and family history of premature coronary artery disease with her father being diagnosed in his early 50s. Recently, the patient has been experiencing episodes of shortness of breath over the past 6 months with just minimal activity. She also complained of some lower extremity swelling which did resolve with some diuresis. she underwent a stress test which showed anterior wall ischemia with small reversible defect. a 2-D echocardiogram which showed mild aortic valve insufficiency, mild mitral valve regurgitation, mild tricuspid valve regurgitation and left ventricular function to be normal with an ejection fraction of 55%. Subsequently she underwent an elective heart catheterization on 07/27/2020 which demonstrated a left main stenosis with QING with a calculation of 2.6 mm, a 40% stenosis to her mid left anterior descending coronary artery and a 30% stenosis to her right coronary artery. Due to the patient's symptoms and findings on her heart catheterization of left main stenosis a consult was placed to Dr. Sethi from cardiothoracic surgery for further evaluation and treatment recommendations. During her preoperative workup her serum sodium level was found to be 120 and was admitted prior to surgery for treatment of hyponatremia. Last admission On 08/06/2020-08/19/20 the patient was admitted to the hospital for treatment of her hyponatremia, and once her hyponatremia was resolved on 08/10/2020, asubsequently taken to the operating room where Dr. Sethi performed a double vessel coronary artery bypass grafting surgery using the left internal mammary artery to left anterior setting coronary artery, a reverse greater saphenous vein graft from the aorta to the first obtuse marginal coronary artery, endoscopic harvesting of the left greater saphenous vein from the groin Upon completion of the surgery the patient was transferred to the intensive care unit where she was recovered, monitored hemodynamically and where she progressed cardiac rehabilitation phase Her oxygen was titrated down, she continued to work with physical/occupational therapy and cardiac rehabilitation, she was tolerating an oral diet, her pain was well controlled without narcotics and she was ready to be discharged home with [facility] care on postoperative day #9. Did not require home O2 on last admission however she required new medication changes including diuretics during that last admission. Patient comes in in worsening shortness of breath anasarca, no chest pain, has BARKER, edma without leg pain new medications from last visit was compliant, requiring lipitor 75bid, tolvaptan. meotprolol 75 bid plavix, lasix 40 mg daily losartain 25 asa 325, ferrous sulfate and fluconazole. patient comes in now for CHF, anarsarc ely pleural effusion, consult with dr Sethi. and cardiology, if okay will be cardiothoracic surgeon can also perform the thoracentesis, however with hypoxemia, also have requested Dr. Gamboa's services. Patient has a hemoglobin of 7.0 on and 3, platelet count of 305, hemoglobin right to admission was 8.0 denies any Hemoccult stools, creatinine was 1.60 from a previous of 0.9 blood pressure is in the low 90s systolic, pulse ox, 90 on 4 L nasal cannula, patient was not discharged with home O2 during her last admission 08/24: A-Team was called for mental status changes. Patient was found to have a blood pressure 99/65, heart rate of 85 and pulse ox of 96% on a nonrebreather with respiratory rate of 32. Patient was transferred to the ICU. She was started on vancomycin and cefepime. Patient has been seen by cardiology with plan to continue vasopressor support, patient may need pleurocentesis. Stat echocardiogram was done to rule out pericardial effusion or tamponade. Patient has been seen by nephrology for acute kidney injury secondary to ATN secondary to hypotension and cardiorenal syndrome. Patient is currently on bicarb drip, status post Lasix 80 mg IV once. Renal replacement therapy to be initiated immediately. Vascular consult in place for a dialysis catheter placement and start hemodialysis today with second treatment tomorrow. Sternal wound was producing thick yellowish brown fluid, was opened approximately 2 cm and deep culture was taken, packed and covered with 4 x 4 dressing. She is requiring vasopressors. She is hypothermic and warming blanket is in place.Patient had minimal output yesterday and none today. She is status post 2.5 L of fluids. 08/25 patient was examined in the ICU. She was able to maintain oxygenation on BiPAP overnight switch to high flow 15 m this morning. Patient did have episodes of agitation last night and was started on Seroquel. She did receive a dose of Seroquel prior to admission and was found to be resting comfortably. Patient is off pressors and bicarbonate drip and metabolic acidosis seemed to have cleared off. On evaluation of patient's lab, WBC is 14.3, hemoglobin 6.5 platelet 208 ABG this morning has a pH of 7.47 CO2 74. Bicarb 29. Sodium has improved to 126 chloride 96 BUN 43 creatinine 2.79 lactic acid has improved to 2.9 calcium 7 liver enzymes elevated AST at 2874 ALT 1469 alkaline phosphatase 192 CRP 356 BNP 13,000 UA does suggest some infection with WBC of 88 hyaline casts 33 protein 2+ urine blood trace nitrite negative leukocyte Estrace negative. Wound cultures positive for presumptive staph aureus. Patient's blood culture from yesterday are positive with presumptive staph aureus. Repeat blood cultures ordered. Patient received 1 unit of PRBCs for low hemoglobin. Urine output has improved to 20-40 mL's per hour. Patient did receive a dose of DDAVP for hyponatremia. Normal saline is running at 50 mL per hour. Did receive hemodialysis today with 2 L ultrafiltration. Patient was also noted to be in A. fib with RVR intermittently and her dose of Lopressor was increased to 25 mg every 8 hours. Continue daptomycin and cefepime for antibiotic coverage. Monitor patient's for QTC prolongation well on Seroquel. Patient has significant dehiscence of wound and may need I&D 08/26: She was intubated and placed on mechanical ventilation overnight with pulse ox of 96%, tidal volume 450, FiO2 50, PEEP of 5. Temperature max last evening was 101.2. Heart rate 82, blood pressure 120/53. WBC 9.6, hemoglobin 10.8, platelet count 159. Sodium 134, potassium 4.7, chloride 100, CO2 25, BUN 14 creatinine 1.83. Blood sugars running between 100 2753. Total bilirubin 3.3, AST 1067, ALT 993, alkaline phosphatase 251. Magnesium 2.1. Patient is on vasopressors. equipment monitor phototypesetting atrial flutter alternating with sinus rhythm. Patient is also on propofol and Seroquel discontinued. Thoracic surgery is possible taking her to or for I&D and considering wound VAC. Patient is on Plavix. Echocardiogram reveals normal LV function and mild aortic stenosis. Patient is currently on daptomycin and cefepime per Dr. Mcintyre. Urine output remains low at 15-20 mL per hour. Should she is scheduled for third hemodialysis treatment today. Patient is scheduled for Lasix 80 mg IV this afternoon. 08/27 she remains in the ICU, intubated and mechanically ventilated. Patient is going to the OR for debridement today. Patient remains intubated on 50% FiO2 and PEEP of 5, assist control rate of 20volume 450. Continues to require Levophed at 11mcg/ hr . Blood clots and culture positive for MSSA. Urine output is 50-60 mL per hour. Patient continues to be on sedation from propofol at 50 max per KG permanent. IV fluids at KVO. Patient continues to have good urine output after a dose of 80 mg of IV Lasix today. Vision tolerated 2.5 L ultrafiltration yesterday and is started on hemodialysis on August 24. No holiday sedation today. Plan to continue Lasix 80 IV once daily and holding hemodialysis. Anticoagulation held for debridement. 08/28 patient remains in the ICU. Did have sternal Exploration and debridement yesterday remains sedated on propofol. Patient continues to have high temp of 101.6, to 233 tachycardic 111 blood pressure 106/51 oxygen saturation 95% on 50% FiO2. Labs suggest a leukocytosis of 24.3 hemoglobin stable at 10.7 platelet count has dipped dropped to 78, he really suggest a pH of 7.53 pCO2 30 PaO2 57, chloride of 110 potassium 3.5 and anion gap of 6 BUN 46 creatinine 0.9 calcium 7.8 ALT 3:15 alkaline phosphatase 312 AST 112 blood cultures from 08/26 positive for staph aureus. Urine output 1.2 L in 24 hours Repeat blood cultures sent today. Patient continues to be normal sinus rhythm not currently on any anticoagulation at the possibility of going for another debridement. Patient's continues to be on levo fed and still stays intubated. Continue IV Lasix. Patient initiated on IV Lasix 08/29: Patient remain in the ICU, remain on mechanical ventilation, sternal exploration and debridement was done and still have packing area within open wound at this point. Oxygenation is better patient is not 3 to be off vent at this point. Her urine output has been good and hemodynamically stable. 08/30: Patient still on mechanical ventilation, his sternum 1 and was changed today still have significant amount of infection and pus was packed still open. Patient remain on nafcillin and Moni mycin. Still having positive blood culture. 08/31: Patient is more awake today doing trial of weaning parameter try to get patient off the respirator, her incision and infection along the sternum is no change still have packing on still on IV antibiotics. Hemodynamically is more stable. 09/01: Patient evaluated in the ICU, continues on mechanical ventilation. Wound packing was removed yesterday, purulence was noted on the packing, deep near the heart and purulence around the heart. She continues on IV clindamycin and nafcillin. Patient was taken off sedation yesterday for a trial of weaning, but she became hypertensive and tachypneic so she is placed back on sedation. 09/02: Patient remains intubated and on mechanical ventilation with tidal volume 400, FiO2 of 50% and PEEP of 5. Patient has been off sedation since Monday. She is receiving OG tube feedings. She appears to be opening meaning her eyes and can shake her head. Otherwise not moving extremities. She has a wound VAC in place to the sternal wound. Wound cultures and blood culture positive for MSSA. She is scheduled for sternal wound excision and debridement with flap reconstruction and graft tomorrow with Dr. Whittaker. Repeat blood work reveals WBC of 13.6, hemoglobin 8.5. BUN 66 and creatinine 1.62, potassium 3.2 and has been replaced, blood sugars running between 107 and 132. Because renal functioning is worsening, nephrology has recommended holding nafcillin. Repeat chest x-ray reveals correlate for pneumonia, edema, ARDS. 09/03: She remains in the intensive care unit intubated and on mechanical ventilation with tidal volume 400, FiO2 40, PEEP of 5. Patient is awake with eyes open. She nodded her head no to having pain. She had a temperature this morning of 101.6 at 6 AM. Antibiotics are currently in the form of Kefzol. Repeat chest x-ray was done this morning and report is pending. Patient has been seen by neurology and doubt critical illness neuropathy. CAT scan of the brain and cervical spine done that showed no acute fracture or dislocation in the cervical spine. No acute intracranial hemorrhage, mass effect or midline shift. Ongoing airspace disease. Cardiology has recommended reinitiating statin. Temperature max 101.6, heart rate 101, blood pressure 117/52, pulse ox 95%. Repeat blood work reveals WBC 15.4, hemoglobin 8.3, platelet count 243. Sodium 149, potassium 2.8, chloride 111, CO2 28, BUN 66 and creatinine 1.49. Total bilirubin 2.4, AST 43, ALT 33 and alkaline phosphatase 260. All previous blood cultures have been positive for staph aureus MSSA. A repeat blood culture on August 2029 showing no growth at 24 hours. 09/04: Yesterday, patient underwent excision of sternal wound, partial sternotomy and pectoralis flap procedure. This morning, patient had new lines done by pulmonary medicine. Dr. Mcintyre has recommended continuing Kefzol and repeat blood cultures are in progress. Repeat chest x-ray reveals rotated exam, findings similar to prior, correlate for edema, pneumonia, ARDS. Cardiothoracic surgeryhas ordered a consult with Dr. Yuan. He has evaluated patient for global weakness and does not think she has new cervical spine issues that would cause her global weakness.patient continues to have fever with temperature maximum 102.2, tachycardic in the low 100s, respiratory rate 30, blood pressure 103/60, pulse ox 98%. She remains intubated and on mechanical ventilation with tidal volume 400, FiO2 50, PEEP of 5. WBC 17.5, hemoglobin 7.2, platelet count 328. Sodium 149, potassium 3.8, chloride 115, CO2 26, BUN 59 and creatinine 1.37. Blood sugars running 129-144. Magnesium 2.6. Total bilirubin 2.0, AST 39, alkaline phosphatase 197, ALT 19.. sputum culture has been obtained. Most recent blood culture from September 02 showing no growth at 24 hours and blood culture from September 01 is no growth at 48 hours. Patient is currently on very minimal sedation. 09/05: Patient remains in the ICU, intubated and on mechanical ventilation with tidal volume 400, FI02 40% and peep 5. Patient continues to run fevers. Dr. Mcintyre has changed antibiotics to cefepime and daptomycin. Blood cultures dated September 01, , are showing no growth. Sputum culture is in process. equipment monitor phototypesetting sinus tachycardia. Heart rate has been running between 108 and 121, respiratory rate 31, blood pressure 90/32, pulse ox 98%. She remains on low dose norepinephrine. Patient is off sedation with eyes open. She is not moving extremities. She has been evaluated by orthopedic spine and spinal etiology has essentially been ruled out. Patient is also been evaluated by neurology and critical care neuropathy has also been essentially ruled out. Patient stabilized, hopefully a MRI can be performed. WBC 13.4, hemoglobin 5.4 and this was rechecked, platelet count 313, sodium 152, potassium 3.6, BUN 45 and creatinine 1.2. Patient is receiving 1 unit of packed RBCs. Nephrology is continuing IV Lasix 40 mg daily. Patient is on PEG tube feedings and tolerating. 09/06: Patient remains in intensive care unit. She is intubated and on mechanical ventilation with tidal volume 400, FiO2 40, PEEP 5. The patient has her eyes open, she is responsive with facial movement, she is able to minimally move lower extremities. She has a fecal management system in place as well as Yu catheter with good urine output. Patient was running fevers yesterday until evening. Patient has been afebrile following a reading of 1800 last night of 100.9. She is on IV antibiotics with cefepime and daptomycin. Heart rate 95-112, respiratory rate 28. Repeat chest x-ray reveals cardiomegaly with increased alveolar and interstitial edema and/or infiltrates bilaterally remain present. Possible ARDS. Hemoglobin today is at 8 status post She is continued on IV Lasix per nephrology. Potassium replaced. W BC 10.6, platelet count 276. Sodium 150, potassium 3.6, chloride 119, CO2 24, BUN 42 and creatinine 1.03. Blood sugar 140. Patient is receiving tube feedings at goal rate. 09/07: She remains in the intensive care unit, intubated and on mechanical ventilation with FiO2 of 40%, PEEP of 5. She remains off sedation and is awake and able to follow some minimal commands. Mature max 101.6, heart rate 104, respiratory rate 34, blood pressure 81/30, pulse ox 97%. AP blood work reveals WBC 11.8, hemoglobin 9.5, platelet count 347. Sodium 148, potassium 3.7, chloride 117, CO2 25, BUN 38 and creatinine 0.96. Blood sugar running between 112 117. Magnesium 2.0. Total bilirubin 1.5, AST 41, ALT 19, alkaline phosphatase 181. Albumin 2.4. Blood cultures on every remain without g rowth at 120 hours. Sputum culture has been finalized no growth. Patient is continued on cefepime and optimizing. PICC line is being inserted this morning by interventional radiology. OG tube with feedings at goal. Patient is not currently on vasopressors. 3: Patient remains in the intensive care unit intubated and on mechanical ventilation with tidal volume 400, FiO2 35 and PEEP of 5. Patient was on CPAP yesterday for about 8 hours but was unable to tolerate for only short period today. Her mental status has been labile. She is intermittently following commands with no response and staring. Patient appears to be uncomfortable. Generalized anasarca noted. She has brown liquid stool from fecal management system and we will check a C. diff toxin. Most likely diarrhea is only from tube feedings. Temperature max 101.6. Heart rate 113, respiratory rate 39, blood pressure 120/61, pulse ox 99%. Repeat chest x-ray reveals correlate for pneumonia, edema, ARDS. Repeat blood work reveals WBC 10, hemoglobin 7.4, platelet count 298. Sodium 145, potassium 3.4, chloride 114, CO2 24, BUN 33 and creatinine 0.85. Blood sugars are running between 115 and 122. Total bilirubin 1.2, AST 39, ALT 23, and phosphatase 150. Urinalysis sent last evening showed blood moderate, RBC 64, WBC 7. Blood cultures since every are showing no growth. 09/09: Patient remains in the intensive care unit intubated and on mechanical ventilation. Patient has been started on Precedex. She remains with [address] to the sternal wound. Yu catheter with good urine output. Fecal management system in place. C. difficile toxin was negative. 2. Feedings are at goal. The patient is not focusing eyes, no purposeful movements. Patient has been afebrile greater than 24 hours. Heart rate 90s, respiratory rate 30s to 40s, blood pressure 112/64, pulse ox 97%. WBC 9.0, hemoglobin 7.3, platelet count 292. Potassium 3.4 and will be replaced. Blood sugars running between 100 2049. Alkaline phosphatase 161. TSH 3.7-0. We have also added a vitamin B12 level. Lasix was increased to twice daily. Temperature max 100.6. 09/10: Patient remains in intensive care unit, intubated and on mechanical ventilation with tidal volume 400, FiO2 35, PEEP 5. Patient has been started on propofol since yesterday's eval. Temperature max 100.6, heart rate 80, respiratory rate 28, blood pressure 104/60, pulse ox 90%. Repeat blood work reveals Connie BC 12.5, hemoglobin 7.4, platelet count 403. Electrolytes are normal. BUN 34 and creatinine 0.81. Blood sugars are running 123 236. Magnesium 2.0. AST 42, ALT 31, alkaline phosphatase 183. Chest x-ray is stable. 09/11:she remains in the intensive care unit, intubated and on mechanical ventilation. Patient has been off sedation this morning. Her eyes are open but she has no reaction, does not follow instructions. No purposeful movements.CAT scan of the cervical spine reveals C3-C7 ACDF hardware causing artifact. Thickening of the prevertebral soft tissues likely due to intubation state disc osteophyte complex contributing to moderate spinal stenosis at C3-C4. Severe left neural foraminal stenosis. Moderate to severe right neural foraminal stenosis at C6-C7. Degenerative grade 1 anterolisthesis at C7-T1. Thoracic spine CAT scan revealed no vertebral compression collapse. Degenerative grade 1 anterolisthesis secondary to hypertrophic facet arthropathy below the ACDF at C7-T1. Low utility for epidural abscess. No endplate erosions are seen.CAT scan of the brain reveals no acute intracranial abnormality. No enhancing intracranial lesions. Layering fluid in the mastoid air cells. repeat chest x- ray reveals correlate for pneumonia, junk congestive heart failure and pulmonary edema, ARDS. Lasix decreased to 40 mg IV once daily. free water flushes have been discontinuedper nephrology. Patient is followed by cardiology and pulmonary medicine as well. Patient has been afebrile since September 09. Heart rate in the 90s, respiratory rate in the 20s,110/44. WBC 13.2, hemoglobin 7.7, platelet count 428. Sodium 136, potassium 3.9, [id number], CO2 25, BUN 32 and creatinine 0.86. Blood sugars are running between 121 and 132. Alkaline phosphatase 163. Blood cultures since every have shown no growth. 09/12: patient remains in the intensive care unit, intubated and on mechanical ventilation. Patient has been off sedation this morning. Her eyes are open but she has no reaction, does not follow instructions. No purposeful movements.CAT scan of the cervical spine results noted above. Lasix decreased to 40 mg IV once daily. free water flushes have been discontinuedper nephrology. Patient is followed by cardiology and pulmonary medicine as well. Patient has been afebrile since September 09. Heart rate in the 90s, respiratory rate in the 20s,110/44. WBC 13.2, hemoglobin 7.7, platelet count 428. Sodium 136, potassium 3.9, [id number], CO2 25, BUN 32 and creatinine 0.86. Blood sugars are running between 121 and 132. Alkaline phosphatase 163. Blood cultures since every have shown no growth. 09/13: Remains in intensive care unit, intubated and on mechanical ventilation. Spontaneous respirations was attempted for approximate 40 minutes. Patient's respiration rate increased to 40 with increase in heart rate. Patient is scheduled for a trach on Monday with Dr. Sethi and a PEG tube with Dr. sOcar on Monday. WBC 11.2, hemoglobin 7.5, platelets 44. Blood sugars running from 120 to 130s. Blood pressure 170/62, patient remains afebrile, respirations 18, heart rate 108 FiO2 35 09/14: Remains in the intensive care unit, intubated and on mechanical ventilation with tidal volume 400, FiO2 35 of PEEP of 5. Patient is scheduled for Lasix which is going to be given after her procedures. Patient is scheduled for PEG tube and trach this morning. She remains with [address], midsternal having 50 MLS per shift. She also has Yu catheter and with 40 ML's per hour. She is not currently on vasopressors. Patient has a coccyx decubitus ulcer H2O she has coccyx area. She also has opted form to the scapula area. She has been afebrile, heart rate 92-108, blood pressure 136/85, pulse ox 97%. 2. Blood work reveals WBC 12.3, hemoglobin 8, platelet count 431. Electrolytes normal. BUN 31 and creatinine 0.73. Alkaline phosphatase 158. Repeat chest x-ray reveals diffuse pleural parenchymal changes are stable correlate for diffuse pneumonia, ARDS or heart failure. REVIEW OF SYSTEMS Unable to obtain due to mental status change/intubation. PHYSICAL EXAMINATION Gen: This is a 75-year-old female. Patient is resting in ICU bed and appears to be comfortable. HEENT: Head is atraumatic, normocephalic. Pupils equal, round. Sclerae is anicteric. Patient intubated and on mechanical ventilation. NECK: Supple. No JVD. No lymphadenopathy. LUNGS: Diminished. No wheezes or rhonchi. No intercostal retractions. HEART: Regular rate and rhythm. 2/6 systolic murmur. Dressing to sternal wound, wound VAC, 3 RAHEEM drains with serosanguineous drainage. ABDOMEN: Soft. Bowel sounds are present. No masses. No tenderness. The catheter draining jac urine. Fecal management system with brown liquid stool. EXTREMITIES: 1+ bilat pitting edema. Generalized anasarca. NEUROLOGICAL: Patient resting comfortably in bed, eyes are open and staring, no blinking noted, patient is not making any purposeful movements. She is able to move all extremities. ASSESSMENT AND PLAN 1. Acute diastolic heart failure, (POA) EF 55%, mild AI and mild MR and mild TR, also complicated by severe protein calorie malnutrition, Cardiology consult appreciated. Continue Lasix 40 mg IV daily managed by nephrology. 2. Acute hypoxemic respiratory failure. (POA) Patient has underlying pulmonary hypertension as well, consult with coronary. Patient is intubated and on mechanical ventilation. Pulmonary medicine is managing. Tracheostomy today. 3. Acute kidney injury secondary to ATN secondary to hypotension and cardiorenal syndrome. (POA) Patient is status post dialysis catheter placement, hemodialysis. Patient is followed closely by nephrology. 4. Hyperkalemia secondary to potassium supplementation, losartan and acute kidney injury as well as severe acidosis. (POA) Consult with nephrology appreciated. Continue medical management. 5. Metabolic acidosis secondary to acute kidney injury. (POA) 6. Metabolic encephalopathy secondary to acute kidney injury, acute heart failu re, acute respiratory failure, metabolic acidosis and hyperkalemia. (POA) improving. 7. Sepsis with septic shock with multiorgan failure with metabolic encephalopathy, acute kidney injury, acute heart failure, acute respiratory failure, MSSA bacteremia. (POA) status post sternal exploration and sternal debridement on August 27. She requires vasopressors. Possible MSSA pneumonia on CAT scan. Patient is continued on cefepime and daptomycin. 8. Sepsis with sternal wound dehiscence. (POA) Status post sternal exploration and sternal debridement on 08/27 followed by excision of sternal wound, partial sternotomy and pectoralis flap procedure on 09/03. Infectious disease consult appreciated. Antibiotics have been transitioned to cefepime and daptomycin. PEG tube and trach today. 9. Acute blood loss anemia, postop, status post transfusion of 5 units of packed RBCs. Continue to monitor. 10. Hyponatremia. Continue to monitor. 11. CAD, with prior CABG performed on 08/10/2020, two-vessel, involving HOLLAND to LAD, and reverse greater saphenous vein to obtuse marginal coronary artery. Continue aspirin 325 mg daily, Plavix 75 mg daily, Toprol all 75 mg twice a day, 12. Severe protein calorie malnutrition, with anasarca and hypotension. Continue tube feedings. PEG tube insertion today. 13. History of pulmonary fibrosis. Continue duo nebs and albuterol 14. Asthma, mild intermittent. Continue ipratropium albuterol nebulizers 15. Hyperlipidemia. Continue statin daily 16. Hypertension. Currently hypotensive 17. GI prophylaxis. Pantoprazole 18. Critical care neuropathy essentially ruled out by and neurology. 19. DVT prophylaxis: SCDs 20. Blood sugar management in a nondiabetic. insulin scale every 6 hours. 21. Acute transaminitis secondary to hypoperfusion. 22. Chronic kidney disease stage II. 23. Stage II coccyx decubitus ulcer. Prognosis guarded DISCHARGE PLAN TBD. Impression and plan of care have been directed as dictated by the signing physician. Monica Fragoso nurse practitioner acting as scribe for signing physician. Objective - Vital Signs Vital signs: Vital Signs Temp 98.3 F 09/14/20 08:00 Pulse 92 09/14/20 09:00 Resp 20 09/14/20 09:00 BP 136/85 09/14/20 09:00 Pulse Ox 97 09/14/20 09:00 Intake & Output 09/13/20 09/14/20 09/14/20 18:59 06:59 18:59 Intake Total 856 498 69 Output Total 2370 807 319 Balance -1514 -309 -250 Weight 80.1 kg Intake: IV 319 203 69 Cefepime 2 gm In Sodium 100 100 Chloride 0.9% 100 ml @ 25 mls/hr IVPB Q12HR [facility] Rx #:[id number] D5-0.45% NaCl with KCl 40 20Meq/l 1,000 ml @ 40 mls /hr IV .Q24H [facility] Rx#: [id number] DAPTOmycin 500 mg In 50 Sodium Chloride 0.9% 50 ml @ 100 mls/hr IVPB Q24HR [facility] Rx#:[id number] Pressure Bag 39 33 9 Sodium Chloride 0.9% 1, 130 70 20 000 ml @ 10 mls/hr IV . Q24H [facility] Rx#:[id number] Tube Feeding 477 265 Other 60 30 Output: Drainage 52 104 RAHEEM #1. 2 4 RAHEEM #2 50 100 RAHEEM #3 0 0 Urine 2370 655 215 Stool 100 Other: Voiding Method Indwelling Catheter Indwelling Catheter Indwelling Catheter ABP, PAP, CO, CI - Last Documented Arterial Blood Pressure 140/54 - Labs CBC & Chem 7: 09/14/20 04:18 09/14/20 04:18 Labs: Abnormal Lab Results - Last 24 Hours (Table) 09/13/20 09/13/20 09/13/20 Range/Units 11:31 17:33 17:48 WBC (3.8-10.6) k/uL RBC (3.80-5.40) m/uL Hgb (11.4-16.0) gm/dL Hct (34.0-46.0) % RDW (11.5-15.5) % Neutrophils # (1.3-7.7) k/uL ABG pH (7.35-7.45) ABG HCO3 (21-25) mmol/L ABG Total CO2 (19-24) mmol/L ABG O2 Saturation (94-97) % BUN (7-17) mg/dL Glucose (74-99) mg/dL POC Glucose (mg/dL) 112 H 104 H 112 H (75-99) mg/dL Alkaline Phosphatase (38-126) U/L Albumin (3.5-5.0) g/dL 09/13/20 09/14/20 09/14/20 Range/Units 23:53 04:18 04:18 WBC 12.3 H (3.8-10.6) k/uL RBC 2.82 L (3.80-5.40) m/uL Hgb 8.0 L (11.4-16.0) gm/dL Hct 26.0 L (34.0-46.0) % RDW 17.4 H (11.5-15.5) % Neutrophils # 8.3 H (1.3-7.7) k/uL ABG pH (7.35-7.45) ABG HCO3 (21-25) mmol/L ABG Total CO2 (19-24) mmol/L ABG O2 Saturation (94-97) % BUN 31 H (7-17) mg/dL Glucose 101 H (74-99) mg/dL POC Glucose (mg/dL) 126 H (75-99) mg/dL Alkaline Phosphatase 158 H (38-126) U/L Albumin 2.9 L (3.5-5.0) g/dL 09/14/20 09/14/20 Range/Units 04:21 06:00 WBC (3.8-10.6) k/uL RBC (3.80-5.40) m/uL Hgb (11.4-16.0) gm/dL Hct (34.0-46.0) % RDW (11.5-15.5) % Neutrophils # (1.3-7.7) k/uL ABG pH 7.50 H (7.35-7.45) ABG HCO3 32 H (21-25) mmol/L ABG Total CO2 33 H (19-24) mmol/L ABG O2 Saturation 99.3 H (94-97) % BUN (7-17) mg/dL Glucose (74-99) mg/dL POC Glucose (mg/dL) 102 H (75-99) mg/dL Alkaline Phosphatase (38-126) U/L Albumin (3.5-5.0) g/dL Microbiology - Last 24 Hours (Table) 09/07/20 09:27 Blood Culture - Final Blood No Growth after 144 hours
--- NOTE | 2020-09-14 11:27 | P.OP ---
Date of Procedure: 09/14/20 Procedure(s) Performed: PREOPERATIVE DIAGNOSIS: Malnutrition POSTOPERATIVE DIAGNOSIS: Same PROCEDURE: EGD with PEG tube placement SURGEON: Dayne EBL: Minimal ANESTHESIA: Sedation COMPLICATIONS: None OPERATIVE PROCEDURE: The patient was kept in the operating room after tracheostomy was placed by cardiac surgery. The patient was under general anesthesia at that time. The Olympus gastroscope was inserted into the oropharynx and passed under direct visualization to the region of the duodenum. No obstruction was seen. The pylorus was widely patent. The stomach was carefully inspected. The stomach was fully insufflated with air. The abdominal wall was inspected. The light was seen shining through the abdominal wall in the left upper quadrant. This site was chosen for PEG tube placement. The area was prepped in the usual sterile fashion. This area was then localized with lidocaine. No air was evident when aspirating while advancing the localizing needle into the stomach until the stomach was reached. A small vertical incision was made using the scalpel. The Seldinger needle was advanced into the lumen of the stomach the wire was advanced. The wire was grasped with an endoscopic snare. The wire was pulled through the oropharynx. The catheter was then threaded over the guidewire and the guidewire and catheter were pulled anteriorly until the hub of the PEG tube catheter was seated against the anterior wall the stomach. The circular bolster was applied and tightened down. The endoscope was then readvanced into the stomach. There was no evidence of any bleeding and there was appropriate tightness on the bolster. The catheter was cut appropriately. The dual port feeding adapter was applied. DISPOSITION: Stable to ICU
--- NOTE | 2020-09-14 11:49 | P.PN ---
Subjective Progress Note Date: 09/14/20 This is a 75-year-old female with history of hypertension, hyperlipidemia, pulmonary fibrosis, status post bypass surgery with sternal infection and dehiscence for which she had surgery. Patient is also mentally not responding well. She is moving activities but doesn't respond appropriately to verbal sti muli. She is also on a respirator and going for tracheostomy and PEG tube. She still seemed to be awake but doesn't follow commands. Movements of the legs are noted. Cardiac standpoint we'll continue current medical therapy. She may need a long-term care Objective - Vital Signs Vital signs: Vital Signs Temp 98.3 F 09/14/20 08:00 Pulse 90 09/14/20 11:42 Resp 20 09/14/20 09:00 BP 136/85 09/14/20 09:00 Pulse Ox 97 09/14/20 09:00 Intake & Output 09/13/20 09/14/20 09/14/20 18:59 06:59 18:59 Intake Total 856 498 369 Output Total 2370 807 321 Balance -1514 -309 48 Weight 80.1 kg Intake: IV 319 203 369 Cefepime 2 gm In Sodium 100 100 Chloride 0.9% 100 ml @ 25 mls/hr IVPB Q12HR [facility] Rx #:[id number] D5-0.45% NaCl with KCl 40 20Meq/l 1,000 ml @ 40 mls /hr IV .Q24H [facility] Rx#: [id number] DAPTOmycin 500 mg In 50 Sodium Chloride 0.9% 50 ml @ 100 mls/hr IVPB Q24HR [facility] Rx#:[id number] Pressure Bag 39 33 9 Sodium Chloride 0.9% 1, 130 70 20 000 ml @ 10 mls/hr IV . Q24H [facility] Rx#:[id number] Tube Feeding 477 265 Other 60 30 Output: Drainage 52 104 RAHEEM #1. 2 4 RAHEEM #2 50 100 RAHEEM #3 0 0 Urine 2370 655 215 Stool 100 Estimated Blood Loss 2 Other: Voiding Method Indwelling Catheter Indwelling Catheter Indwelling Catheter ABP, PAP, CO, CI - Last Documented Arterial Blood Pressure 140/54 - Exam GENERAL EXAM: Patient is intubated and on the respirator going for a tracheostomy today HEENT: Normocephalic. NECK: No masses, no nuchal rigidity. CHEST: No chest wall deformity. LUNGS: Equal air entry with no crackles or wheeze. HEART: S1 and S2 normal with no audible mumurs or gallops. Regular rhythm, femorals equal on both sides.. ABDOMEN: No hepatosplenomegaly, normal bowel sounds, no guarding or rigidity. SKIN: No rashes CENTRAL NERVOUS SYSTEM: Awake but doesn't respond appropriately to verbal stimuli. Moving extremities EXTREMITIES: No cyanosis, clubbing or edema. - Labs CBC & Chem 7: 09/14/20 04:18 09/14/20 04:18 Labs: Abnormal Lab Results - Last 24 Hours (Table) 09/13/20 09/13/20 09/13/20 Range/Units 17:33 17:48 23:53 WBC (3.8-10.6) k/uL RBC (3.80-5.40) m/uL Hgb (11.4-16.0) gm/dL Hct (34.0-46.0) % RDW (11.5-15.5) % Neutrophils # (1.3-7.7) k/uL ABG pH (7.35-7.45) ABG HCO3 (21-25) mmol/L ABG Total CO2 (19-24) mmol/L ABG O2 Saturation (94-97) % BUN (7-17) mg/dL Glucose (74-99) mg/dL POC Glucose (mg/dL) 104 H 112 H 126 H (75-99) mg/dL Alkaline Phosphatase (38-126) U/L Albumin (3.5-5.0) g/dL 09/14/20 09/14/20 09/14/20 Range/Units 04:18 04:18 04:21 WBC 12.3 H (3.8-10.6) k/uL RBC 2.82 L (3.80-5.40) m/uL Hgb 8.0 L (11.4-16.0) gm/dL Hct 26.0 L (34.0-46.0) % RDW 17.4 H (11.5-15.5) % Neutrophils # 8.3 H (1.3-7.7) k/uL ABG pH 7.50 H (7.35-7.45) ABG HCO3 32 H (21-25) mmol/L ABG Total CO2 33 H (19-24) mmol/L ABG O2 Saturation 99.3 H (94-97) % BUN 31 H (7-17) mg/dL Glucose 101 H (74-99) mg/dL POC Glucose (mg/dL) (75-99) mg/dL Alkaline Phosphatase 158 H (38-126) U/L Albumin 2.9 L (3.5-5.0) g/dL 09/14/20 Range/Units 06:00 WBC (3.8-10.6) k/uL RBC (3.80-5.40) m/uL Hgb (11.4-16.0) gm/dL Hct (34.0-46.0) % RDW (11.5-15.5) % Neutrophils # (1.3-7.7) k/uL ABG pH (7.35-7.45) ABG HCO3 (21-25) mmol/L ABG Total CO2 (19-24) mmol/L ABG O2 Saturation (94-97) % BUN (7-17) mg/dL Glucose (74-99) mg/dL POC Glucose (mg/dL) 102 H (75-99) mg/dL Alkaline Phosphatase (38-126) U/L Albumin (3.5-5.0) g/dL Microbiology - Last 24 Hours (Table) 09/07/20 09:27 Blood Culture - Final Blood No Growth after 144 hours Assessment and Plan (1) CAD (coronary artery disease) Current Visit: Yes Status: Acute Code(s): I25.10 - ATHSCL HEART DISEASE OF [place] CORONARY ARTERY W/O ANG PCTRS SNOMED Code(s): 26162223 (2) CHF (congestive heart failure) Current Visit: Yes Status: Acute Code(s): I50.9 - HEART FAILURE, UNSPECIFIED SNOMED Code(s): 12931700 (3) Hyponatremia Current Visit: Yes Status: Acute Code(s): E87.1 - HYPO-OSMOLALITY AND HYPONATREMIA SNOMED Code(s): 80427531 (4) Sternal wound infection Current Visit: Yes Status: Acute Code(s): S21.101A - UNSP OPN WND R FRNT WL OF THORAX W/O PENET THOR CAVITY, INIT; L08.9 - LOCAL INFECTION OF THE SKIN AND SUBCUTANEOUS TISSUE, UNSP SNOMED Code(s): 68027123 (5) Status post aorto-coronary artery bypass graft Current Visit: Yes Status: Acute Code(s): Z95.1 - PRESENCE OF AORTOCORONARY BYPASS GRAFT SNOMED Code(s): 225689273 Plan: Continue current medical therapy. Waiting for tracheostomy and PEG tube and long-term care. Poor prognosis
--- NOTE | 2020-09-14 11:51 | OP ---
OPERATIVE REPORT DATE OF THE SURGERY: 09/14/2020 PREOPERATIVE DIAGNOSIS: Status post coronary artery bypass grafting, ventilator dependent. POSTOPERATIVE DIAGNOSIS: Status post coronary artery bypass grafting, ventilator dependent. PROCEDURE: Open tracheostomy. INDICATION FOR SURGERY: The patient is a 75-year-old lady who underwent CABG around 33 days ago and who was readmitted subsequently for deep sternal wound infection requiring initial debridement and subsequent partial sternectomy and muscle flap closure. The patient has history of interstitial pulmonary fibrosis and at this point remained mechanically ventilated and dependent despite several weaning trials. At this point, the patient would be undergoing an open tracheostomy along also with a percutaneous gastrostomy by Dr. Oscar to follow. The risks were explained to the who understood them and agreed to proceed. DESCRIPTION OF THE PROCEDURE: The patient was brought from the ICU evidently already intubated. General anesthesia was administered and she remained stable. She was given 2 grams of cefazolin intravenously. Sequential compression stockings were placed to both lower extremities. The patient was positioned with the neck hyperextended with a roll under the shoulder. She had a short neck. After appropriate timeout, a circumlinear incision around one fingerbreadth above the sternal notch was performed and carried down transversely through the platysma using a low level cautery. Subsequently, the dissection proceeded longitudinally between the strap muscles down to the thyroid isthmus. The trachea was then identified below it and was really behind the sternum. A tracheal hook was used to bring the second ring into view and the isthmus was pushed superiorly without bleeding. The oxygen saturation had been dropped to 30%. I made a cruciate incision into the second tracheal ring and under vision, we withdrew the ET tube just above the tracheal opening. Subsequently in #8 fenestrated Shiley as this was the only one available was introduced into the trachea and proper end-tidal CO2 oxygenation ensured before removing the ET tube. The trach was affixed to the skin on either side with a big silk 0 suture and with neck ties. The patient tolerated procedure well. The percutaneous gastrostomy part will follow and will be dictated by Dr. Oscar. MMCARLOS EDUARDO / SIA: [id number] / MTDD
[2020-09-14 11:56] LABS: Glucose,Whole Blood 87 mg/dL (75-99)
[2020-09-14] MEDS: CLOPIDOGREL 75 MG TAB PO SCH (11:56)
[2020-09-14] MEDS: FERROUS SULFATE ORAL ELIXIR 300 MG/5 ML CUP PO SCH (11:56)
[2020-09-14] MEDS: FUROSEMIDE 10 MG/ML 4 ML VIAL IV SCH (11:56)
[2020-09-14] MEDS: ASCORBIC ACID 500 MG TAB PO SCH (11:56)
--- NOTE | 2020-09-14 14:31 | P.PN ---
Subjective Progress Note Date: 09/14/20 Principal diagnosis: Acute hypoxic and hypercapnic respiratory failure secondary to sepsis and septic shock. 09/13/2020, the patient remains off sedation. She opens her eyes. She follows people around the room. She moves her legs occasionally. I haven't seen in follow-up in a maintenance. She does not follow commands. No seizure activity. No agitation. She seems to be quite and comfortable. Watching her, she can move her legs clearly and I've seen this on several occasions. The patient remains on a mechanical ventilator. She is on assist control mode, VC plus, r ate of 20 with a tidal volume of 400 and an inspiratory time of 0.8 with an FiO2 of 35% and a PEEP of 5. Her chest x-ray was showing improvement in the pulmonary infiltrates. The follow-up chest x-ray from today showed adequate positioning of ET tube. There is still some scattered bilateral pulmonary infiltrates, however, overall, findings are stable and the NG tube and orotracheal tube are both in a good location. Blood gases from today showed a pH of 7.49 with a pCO2 of 39 and a pO2 of 97 and this was done on an FiO2 of 35%. No significant orotracheal secretions. The patient remains on a combination of cefepime and daptomycin. No new cultures and her last positive blood culture with staph aureus was on 08/31/2020. She is afebrile. Her white cell count is at 11.2 and she has a hemoglobin of 7.5. Renal function is stable. She is receiving enteral feeding and she is on vital high protein at the rate of 55 mL an hour which is currently at goal. She is stooling. No diarrhea and she has adequate urine and stool output. She does have a cough. She does have a gag. I am going to check his weaning parameters. I do not have intentions to extubate the patient, however I may give her a prolonged once his breathing trial and assess her ability to do some spontaneous breathing on a pressure support mode of ventilation. On and off, she has been given fentanyl for pain control. RAHEEM drains are still in place with serosanguineous output and the sternum is stable clean and intact and the dressing is dry. The cardiac rhythm is sinus tachycardia and she is on Lopressor 50 mg by mouth twice a day. She is on no pressors. The fluid balance is -1000 mL and she is taking Lasix 40 mg IV on a daily basis. Patient was reevaluated today on 09/14/2020, remains intubated and mechanically ventilated. Patient is now on tidal volume is 400 assist control rate of 20 FiO2 35% PEEP is 5 ABG showed a pO2 of 106 pCO2 of 40 0 pH of 7.50. Ration is not requiring any pressors at this point. Patient is still on treatment for MSSA bacteremia and sepsis as well as septic shock. But she has made a significant improvement overall except her neurological status remains quite an issue. Patient is encephalopathic, and not ready to be weaned or extubated. Hence the patient is going for tracheostomy and PEG tube placement today. Patient had sternal muscle flap done by plastic surgery. Patient does not follow any commands. No seizure activity no agitations. Chest x-ray continues to show improvement in her bilateral pulmonary infiltrates. No significant orotracheal secretions. Remains on cefepime and daptomycin. Last positive blood cultures for staph were on 08/31/2020. ABC is showing improvement WBC count is 12.3 hemoglobin is 8. Basic metabolic profile is normal. Patient is not requiring any further dialysis. Liver profile is normal. Objective - Vital Signs Vital signs: Vital Signs Temp 98.2 F 09/14/20 12:00 Pulse 98 09/14/20 13:00 Resp 22 09/14/20 13:00 BP 127/66 09/14/20 13:00 Pulse Ox 96 09/14/20 13:00 Intake & Output 09/13/20 09/14/20 09/14/20 18:59 06:59 18:59 Intake Total 856 498 641 Output Total 9870 807 1121 Balance -1514 -309 -480 Weight 80.1 kg 80.1 kg Intake: IV 319 203 541 Cefepime 2 gm In Sodium 100 100 Chloride 0.9% 100 ml @ 25 mls/hr IVPB Q12HR [facility] Rx #:[id number] D5-0.45% NaCl with KCl 200 20Meq/l 1,000 ml @ 40 mls /hr IV .Q24H [facility] Rx#: [id number] DAPTOmycin 500 mg In 50 Sodium Chloride 0.9% 50 ml @ 100 mls/hr IVPB Q24HR [facility] Rx#:[id number] Pressure Bag 39 33 21 Sodium Chloride 0.9% 1, 130 70 20 000 ml @ 10 mls/hr IV . Q24H [facility] Rx#:[id number] Oral 100 Tube Feeding 477 265 Other 60 30 Output: Drainage 52 104 RAHEEM #1. 2 4 RAHEEM #2 50 100 RAHEEM #3 0 0 Urine 2370 655 915 Stool 100 100 Estimated Blood Loss 2 Other: Voiding Method Indwelling Catheter Indwelling Catheter Indwelling Catheter ABP, PAP, CO, CI - Last Documented Arterial Blood Pressure 152/56 - Exam PHYSICAL EXAMINATION: Revealed a 75-year-old female, obese, intubated HEENT:, PERRLA, EOMI, nonicteric.Moist mucous membranes endotracheal tube and orogastric tubes are intact. CHEST EXAMINATION: Symmetrical chest expansion, fine crackles at the bases. HEART EXAMINATION normal S1 and S2, 2/6 systolic murmur thought the precordium. ABDOMEN: obese, Soft, nontender. Bowel sounds are heard. No organomegaly noted. EXTREMITIES: Trace of bipedal edema, good pulses bilaterally. NEUROLOGIC EXAMINATION : Patient is awake, does not track with her eyes, does not follow any instructions. Psychiatric not be assessed. Skin: No rashes , however the patient has supposedly a stage II sacral decubitus ulcer. She also has an abrasion on the right forearm. - Labs CBC & Chem 7: 09/14/20 04:18 09/14/20 04:18 Labs: Abnormal Lab Results - Last 24 Hours (Table) 09/13/20 09/13/20 09/13/20 Range/Units 17:33 17:48 23:53 WBC (3.8-10.6) k/uL RBC (3.80-5.40) m/uL Hgb (11.4-16.0) gm/dL Hct (34.0-46.0) % RDW (11.5-15.5) % Neutrophils # (1.3-7.7) k/uL ABG pH (7.35-7.45) ABG HCO3 (21-25) mmol/L ABG Total CO2 (19-24) mmol/L ABG O2 Saturation (94-97) % BUN (7-17) mg/dL Glucose (74-99) mg/dL POC Glucose (mg/dL) 104 H 112 H 126 H (75-99) mg/dL Alkaline Phosphatase (38-126) U/L Albumin (3.5-5.0) g/dL 09/14/20 09/14/20 09/14/20 Range/Units 04:18 04:18 04:21 WBC 12.3 H (3.8-10.6) k/uL RBC 2.82 L (3.80-5.40) m/uL Hgb 8.0 L (11.4-16.0) gm/dL Hct 26.0 L (34.0-46.0) % RDW 17.4 H (11.5-15.5) % Neutrophils # 8.3 H (1.3-7.7) k/uL ABG pH 7.50 H (7.35-7.45) ABG HCO3 32 H (21-25) mmol/L ABG Total CO2 33 H (19-24) mmol/L ABG O2 Saturation 99.3 H (94-97) % BUN 31 H (7-17) mg/dL Glucose 101 H (74-99) mg/dL POC Glucose (mg/dL) (75-99) mg/dL Alkaline Phosphatase 158 H (38-126) U/L Albumin 2.9 L (3.5-5.0) g/dL 09/14/20 Range/Units 06:00 WBC (3.8-10.6) k/uL RBC (3.80-5.40) m/uL Hgb (11.4-16.0) gm/dL Hct (34.0-46.0) % RDW (11.5-15.5) % Neutrophils # (1.3-7.7) k/uL ABG pH (7.35-7.45) ABG HCO3 (21-25) mmol/L ABG Total CO2 (19-24) mmol/L ABG O2 Saturation (94-97) % BUN (7-17) mg/dL Glucose (74-99) mg/dL POC Glucose (mg/dL) 102 H (75-99) mg/dL Alkaline Phosphatase (38-126) U/L Albumin (3.5-5.0) g/dL Microbiology - Last 24 Hours (Table) 09/07/20 09:27 Blood Culture - Final Blood No Growth after 144 hours Assessment and Plan Assessment: Impression: Acute hypoxic and hypercapnic respiratory failure secondary to MSSA bacteremia, sepsis, septic shock, and sternal wound infection. Postoperative day #10, status post excision of sternal wound and muscle flap. Wound VAC has been removed. Septic shock secondary to above, resolved. Acute kidney injury, resolved. Acute metabolic acidosis secondary to above, resolved. Acute diastolic congestive heart failure with bilateral pleural effusions, improved. Benign essential hypertension. History of severe cervical stenosis. Mild interstitial lung disease. 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 Status post sternal exploration and sternal wound debridement August 27. Acute metabolic encephalopathy Failure to wean mostly because of her metabolic encephalopathy. 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 Recommendation: Continue ventilatory support. Continue antibiotics as per infectious disease on the case. Agree with tracheostomy and PEG tube placement today. Continue same ventilatory settings. Nutritional support. Restart feeding tomorrow via PEG tube. Continue GI and DVT prophylaxis. Continue cefepime and daptomycin. Continue RAHEEM drains from sternum. 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 Continue diuretics as needed. We will continue to follow. Critical care time is over 30 minutes Time with Patient: Greater than 30
--- NOTE | 2020-09-14 14:40 | XR ---
EXAMINATION TYPE: XR chest 1V portable DATE OF EXAM: 09/14/2020 COMPARISON: 09/14/2020 HISTORY: Tracheostomy tube placement TECHNIQUE: Single frontal view of the chest is obtained. FINDINGS: ET and NG tube have been removed. Tracheostomy tube is seen with the tip approximately 4.2 cm above eric. PICC line stable. Postsurgical change cervical spine. Surgical franc noted with s ciatica previous surgery. Overlying drainage catheters are seen. Diffuse pleural-parenchymal changes stable. Calcification right axilla stable. Diffuse osteopenia with arthropathy of the shoulders. IMPRESSION: 1. Diffuse pleural-parenchymal disease correlate for diffuse multifocal pneumonia. 2. Tracheostomy tube appears in good position
--- NOTE | 2020-09-14 14:41 | P.PN ---
Subjective Progress Note Date: 09/14/20 Patient was seen for a follow-up. Patient underwent tracheostomy and PEG placement today. Still under the effect of anesthesia. Detailed examination could not be performed. Per nursing report, she moves her lower extremities better than uppers. However does not follow commands. She does open her eyes, sometimes turns her head to the voice, but not consistently. At present patient is somnolent from affect of anesthesia. Objective - Vital Signs Vital signs: Vital Signs Temp 98.2 F 09/14/20 12:00 Pulse 98 09/14/20 13:00 Resp 22 09/14/20 13:00 BP 127/66 09/14/20 13:00 Pulse Ox 96 09/14/20 13:00 Intake & Output 09/13/20 09/14/20 09/14/20 18:59 06:59 18:59 Intake Total 856 498 641 Output Total 2370 807 1121 Balance -1514 -309 -480 Weight 80.1 kg 80.1 kg Intake: IV 319 203 541 Cefepime 2 gm In Sodium 100 100 Chloride 0.9% 100 ml @ 25 mls/hr IVPB Q12HR [facility] Rx #:[id number] D5-0.45% NaCl with KCl 200 20Meq/l 1,000 ml @ 40 mls /hr IV .Q24H [facility] Rx#: [id number] DAPTOmycin 500 mg In 50 Sodium Chloride 0.9% 50 ml @ 100 mls/hr IVPB Q24HR [facility] Rx#:[id number] Pressure Bag 39 33 21 Sodium Chloride 0.9% 1, 130 70 20 000 ml @ 10 mls/hr IV . Q24H [facility] Rx#:[id number] Oral 100 Tube Feeding 477 265 Other 60 30 Output: Drainage 52 104 RAHEEM #1. 2 4 RAHEEM #2 50 100 RAHEEM #3 0 0 Urine 2370 655 915 Stool 100 100 Estimated Blood Loss 2 Other: Voiding Method Indwelling Catheter Indwelling Catheter Indwelling Catheter ABP, PAP, CO, CI - Last Documented Arterial Blood Pressure 152/56 - Exam 09/14/2020: Patient sedated, therefore exam deferred. Just had undergone tracheostomy and PEG placement. 09/06/2020: Patient asleep, sedated, therefore detailed examination deferred. 09/05/2020: On examination patient is awake, opens her eyes, , sometimes tracks, the times not. Patient again smiled slightly to asking her to smile. Otherwise did not answer or nodded if she has pain anywhere, did not follow any commands regarding extremities. Very slight movement to painful stim with us on the right foot but not in the other 3 extremities. Patient was noted to have some rhythmic head movement [id number] and then she would have low amplitude slow bicycling type of activity in the arms and legs. No twitching, but was consistent for some time. Patient not even responding to her for following commands except for that she did turn her head and made eye contact with her . Did not tell if she is in pain anywhere. Her pupils are round and reacting. Visual lópez could not be tested. Face appears symmetric. She is on ventilator. No movement in the 4 extremities except for some rhythmic movement as above. - Labs CBC & Chem 7: 09/14/20 04:18 09/14/20 04:18 Labs: Abnormal Lab Results - Last 24 Hours (Table) 09/13/20 09/13/20 09/13/20 Range/Units 17:33 17:48 23:53 WBC (3.8-10.6) k/uL RBC (3.80-5.40) m/uL Hgb (11.4-16.0) gm/dL Hct (34.0-46.0) % RDW (11.5-15.5) % Neutrophils # (1.3-7.7) k/uL ABG pH (7.35-7.45) ABG HCO3 (21-25) mmol/L ABG Total CO2 (19-24) mmol/L ABG O2 Saturation (94-97) % BUN (7-17) mg/dL Glucose (74-99) mg/dL POC Glucose (mg/dL) 104 H 112 H 126 H (75-99) mg/dL Alkaline Phosphatase (38-126) U/L Albumin (3.5-5.0) g/dL 09/14/20 09/14/20 09/14/20 Range/Units 04:18 04:18 04:21 WBC 12.3 H (3.8-10.6) k/uL RBC 2.82 L (3.80-5.40) m/uL Hgb 8.0 L (11.4-16.0) gm/dL Hct 26.0 L (34.0-46.0) % RDW 17.4 H (11.5-15.5) % Neutrophils # 8.3 H (1.3-7.7) k/uL ABG pH 7.50 H (7.35-7.45) ABG HCO3 32 H (21-25) mmol/L ABG Total CO2 33 H (19-24) mmol/L ABG O2 Saturation 99.3 H (94-97) % BUN 31 H (7-17) mg/dL Glucose 101 H (74-99) mg/dL POC Glucose (mg/dL) (75-99) mg/dL Alkaline Phosphatase 158 H (38-126) U/L Albumin 2.9 L (3.5-5.0) g/dL 09/14/20 Range/Units 06:00 WBC (3.8-10.6) k/uL RBC (3.80-5.40) m/uL Hgb (11.4-16.0) gm/dL Hct (34.0-46.0) % RDW (11.5-15.5) % Neutrophils # (1.3-7.7) k/uL ABG pH (7.35-7.45) ABG HCO3 (21-25) mmol/L ABG Total CO2 (19-24) mmol/L ABG O2 Saturation (94-97) % BUN (7-17) mg/dL Glucose (74-99) mg/dL POC Glucose (mg/dL) 102 H (75-99) mg/dL Alkaline Phosphatase (38-126) U/L Albumin (3.5-5.0) g/dL Microbiology - Last 24 Hours (Table) 09/07/20 09:27 Blood Culture - Final Blood No Growth after 144 hours Assessment and Plan Assessment: * New onset quadriplegia, unclear etiology. 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 CT of the cervical and thoracic spine with IV contrast showed no evidence of discitis osteomyelitis. 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 Improved. Blood cultures negative since 09/01/2020. * Status post CABG, followed by wound infection, requiring sternal debridement with persistent sepsis. Status post placement of muscle flap. * Status post Septic shock with MSSA * Acute kidney injury, improving significantly * Acute transaminitis, improving * Anemia * CHF * Hypertension * History of cervical fusion, spinal stenosis in the past. Plan: * EEG 09/05/2020, which was abnormal due to background slowing of moderate to severe degree. This is suggestive of generalized cerebral dysfunction as can be seen with toxic metabolic encephalopathy or related to diffuse structural brain abnormality. No epileptiform activity was seen. No indication for antiepileptic medication. * Patient has quadriplegia, but slightly improving. Continue close observation. * Patient continues to be encephalopathic, due to toxic metabolic encephalopathy. * Appreciate Orthopedic spine input. Hardware in the cervical spine is stable. No loosening. * CPK 74, TSH 1.87, aldolase 8.4 (1.2 to 7.6). * Anemia, improved. CT abdomen and pelvis negative. * Neurology will follow.
[2020-09-14] MEDS: POTASSIUM CHLORIDE 10 MEQ in WATER FOR INJECTION 1 100ML.BAG IVPB SCH ×2 (16:55→17:53)
[2020-09-14 17:38] LABS: Glucose,Whole Blood 87 mg/dL (75-99)
[2020-09-14] MEDS: MELATONIN 3 MG TABLET PO SCH (20:57)
[2020-09-14 23:34] LABS: Glucose,Whole Blood 105 mg/dL (75-99)
[2020-09-15] MEDS: IPRATROPIUM-ALBUTEROL 3 ML NEB INHALATION SCH ×6 (00:34→19:52)
--- NOTE | 2020-09-15 04:32 | PN ---
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 INTERVAL HISTORY: The patient is currently afebrile. The patient is status post tracheostomy and PEG tube placement. The patient tolerated the procedure. Currently intubated on the vent. Hemodynamically stable. FiO2 is currently stable. No significant reported. PHYSICAL EXAMINATION: Blood pressure 130/80 with a pulse of 83, temperature 98. She is 98% on 5% FiO2. General description is an elderly female lying in bed in no distress. Respiratory system: Unlabored breathing, decreased breath sounds in the base, with no wheeze. Heart S1, S2. Regular rate and rhythm. ABDOMEN: Soft, no tenderness. LABS: Hemoglobin is 8, white count 12.9, BUN of 31, creatinine 0.73. DIAGNOSTIC IMPRESSION AND PLAN: Patient with acute respiratory failure, multifactorial in this patient who does have MSSA bacteremia secondary to the sternal osteomyelitis post debridement also with possible infection from the catheter which will be discontinued. The patient is currently afebrile. White count is down to 12. Continue daptomycin and cefepime and monitor clinical course closely. MMODL / IJN: [id number] /
[2020-09-15 05:15] LABS: Glucose,Whole Blood 106 mg/dL (75-99)
[2020-09-15] MEDS: INSULIN ASPART (NovoLOG) 100 UNIT/ML VIAL SQ SCH ×4 (05:27→23:56)
[2020-09-15 05:30] LABS: Anisocytosis Slight; HCT 24.7 % (34.0-46.0); HGB 7.7 gm/dL (11.4-16.0); Hypochromasia Moderate; MCH 28.9 pg (25.0-35.0); MCHC 31.2 g/dL (31.0-37.0); MCV 92.6 fL (80.0-100.0); Mean Platelet Volume 7.9; Platelet Count 423 k/uL (150-450); Poikilocytosis Slight; RBC 2.66 m/uL (3.80-5.40); RDW 17.2 % (11.5-15.5); WBC 12.6 k/uL (3.8-10.6)
[2020-09-15 05:43] LABS: Calcium 9.3 mg/dL (8.4-10.2)
[2020-09-15 05:50] LABS: ABG Base Excess 8.1 mmol/L; ABG HCO3 31 mmol/L (21-25); ABG Oxygen Saturation 99.3 % (94-97); ABG PCO2 39 mmHg (35-45); ABG PH 7.51 (7.35-7.45); ABG PO2 98 mmHg (83-108); ABG TCO2 32 mmol/L (19-24); Allen Test Performed? Yes
[2020-09-15] MEDS: D5-0.45% NACL WITH KCL 20MEQ/L 1,000 ML IV SCH ×2 (07:50→21:23)
[2020-09-15] MEDS: HEPARIN SODIUM,PORCINE 5,000 UNIT/ML 1 ML VIAL SQ SCH ×3 (07:50→23:59)
[2020-09-15] MEDS: DAPTOmycin 500 MG in SODIUM CHLORIDE 0.9% 50 ML IVPB SCH (08:00)
[2020-09-15] MEDS: PANTOPRAZOLE 40 MG/10 ML VIAL IVP SCH (08:00)
[2020-09-15] MEDS: CHLORHEXIDINE GLUCONATE 15 ML CUP MUCOUS MEM SCH ×2 (08:01→21:17)
[2020-09-15] MEDS: FUROSEMIDE 10 MG/ML 4 ML VIAL IV SCH (08:01)
[2020-09-15] MEDS: METOPROLOL TARTRATE 50 MG TAB PO SCH (08:01)
[2020-09-15] MEDS: ASPIRIN 325 MG TAB PO SCH (08:01)
[2020-09-15] MEDS: CLOPIDOGREL 75 MG TAB PO SCH (08:01)
[2020-09-15] MEDS: ATORVASTATIN 40 MG TAB PEG/G-TUBE SCH (08:01)
[2020-09-15] MEDS: CEFEPIME 2 GM in SODIUM CHLORIDE 0.9% 100 ML IVPB SCH ×2 (08:01→21:18)
[2020-09-15] MEDS: DRY MOUTH SPRAY 44.3 SPRAY/44.3 ML SPRAY MUCOUS MEM SCH ×4 (08:06→21:22)
--- NOTE | 2020-09-15 08:37 | P.PN ---
Subjective Progress Note Date: 09/15/20 Principal diagnosis: Shortness of breath, acute diastolic heart failure, bilateral pleural effusion, lactic acidosis, hypercapnic respiratory failure requiring BiPAP followed by wy chanical ventilation, deep sternal wound infection with MSSA, acute kidney injury, acute hyperkalemia, hyponatremia, acute transaminitis, hypotension requiring vasopressors use, acute anemia. Past medical history significant for coronary artery disease with left main stenosis status post 2 vessel CABG on 08/10/2020 with expected postoperative acute blood loss anemia, hypotension, and urinary retention as well as candidal stomatititus, hyponatremia, pulmonary fibrosis, asthma, hypertension, hyperlipidemia, previous tobacco dependence, obesity, osteoarthritis, cervical stenosis post anterior cervical disc decompression, discectomy and fusion, TIA as a child, family history of premature coronary artery disease. Paroxysmal Afib with RVR. POD #18 sternal exploration with sternal debridement. POD #12 removal of cable and partial resection of the manubrium as well as partial sternectomy by Dr. Sethi, right pectoralis major myocutaneous flap, left pectoralis major myocutaneous flap by Dr. Whittaker. POD #1 status post tracheostomy tube placement by Dr. Flores Sethi. POD #1 EGD with PEG tube placement performed by Dr. Bryan Peña. The patient was seen in follow-up today 09/25/2020 at her bedside in the intensive care unit. Currently she is laying in bed, opens up her eyes with pattie bal stimuli with no tracking noted. She remains with profound weakness to all 4 extremities and is not following any verbal commands. She does not shake her head yes and no to verbal stimuli, she does not squeeze her hands with verbal stimuli nor wiggle her toes with verbal stimuli. She does withdrawal from noxious stimuli to all 4 extremities. She had a tracheostomy tube laced yesterday which is midline and intact, she remains with mechanical ventilator support with current mechanical ventilator settings assist control 20, VC +400/0.80, FiO2 35% and a PEEP of 5. Oxygen saturation is on current mechanical biter settings are 98%. ABG results this morning show a pH of 7.51, pCO2 39, pO2 98, HCO3 31, oxygen saturation 99.3, base excess 8.1. Her T-max temperature in the last 24 hours was 99.6 and she currently remains on daptomycin and cefepime for antibiotic coverage which is managed by infectious disease. Most recent blood cultures and sputum cultures are negative for growth. PEG tube was placed yesterday and tube feeding vital high-protein was restarted this morning at 20 mL per hour. They will slowly increase her tube feeding to goal rate of 54 mL per hour incrementally. Midline sternal incision remains clean, dry and approximated. No drainage or redness is present. 3 chest RAHEEM drains remain in place with scant serosanguineous drainage. Bedside telemetry showing sinus tachycardia heart rate 103 BPM. Laboratory results this morning show a WBC count of 12.9, hemoglobin 7.7, hematocrit 24.7, platelets 423, sodium 142, potassium 4.0, BUN 26, creatinine 0.85 and glucose 107. Her liver panel has normalized. Yu catheter for remains in place for accurate I's and O's with adequate urine output and 355 mL output in the last 8 hours. Objective - Vital Signs Vital signs: Vital Signs Temp 99.2 F 09/15/20 04:00 Pulse 101 H 09/15/20 07:56 Resp 25 H 09/15/20 07:00 BP 125/61 09/15/20 05:00 Pulse Ox 98 09/15/20 07:00 Intake & Output 09/14/20 09/15/20 09/15/20 18:59 06:59 18:59 Intake Total 1206 576 43 Output Total 2326 555 73 Balance -1120 21 -30 Weight 80.1 kg 79.2 kg Intake: IV 906 576 43 Cefepime 2 gm In Sodium 100 100 Chloride 0.9% 100 ml @ 25 mls/hr IVPB Q12HR [facility] Rx #:[id number] D5-0.45% NaCl with KCl 400 440 40 20Meq/l 1,000 ml @ 40 mls /hr IV .Q24H [facility] Rx#: [id number] DAPTOmycin 500 mg In 50 Sodium Chloride 0.9% 50 ml @ 100 mls/hr IVPB Q24HR [facility] Rx#:[id number] Pressure Bag 36 36 3 Sodium Chloride 0.9% 1, 20 000 ml @ 10 mls/hr IV . Q24H [facility] Rx#:[id number] Intake, IV Titration 200 Amount Potassium Chloride 10 meq 200 In Water For Injection 1 100ml.bag @ 100 mls/hr IVPB Q1H [facility] Rx#: [id number] Oral 100 Output: Drainage 104 38 RAHEEM #1. 4 3 RAHEEM #2 100 30 RAHEEM #3 0 5 Urine 2220 555 35 Estimated Blood Loss 2 Other: Voiding Method Indwelling Catheter Indwelling Catheter ABP, PAP, CO, CI - Last Documented Arterial Blood Pressure 138/53 - Exam This is a 75-year-old female patient with tracheostomy tube midline and intact and with mechanical ventilator support. Is not following any verbal commands at this time. Is awake and alert and does not track with her eyes. She is not moving any of her 4 extremities to verbal stimuli. Does grimace and withdrawal from noxious stimuli to all 4 extremities. - Constitutional General appearance: Present: no acute distress, obese - EENT Eyes: Present: PERRLA, poor dentition, normal appearance. Absent: scleral icterus - Neck Details: Neck is supple, no JVD. Tracheostomy tube midline and intact. Neck: Absent: lymphadenopathy - Respiratory Details: Lung sounds with few scattered rhonchi throughout, diminished bilateral bases. Tracheostomy tube is midline and intact with mechanical ventilator support. Current mechanical ventilator settings assist control 20, VC+ 400/0.80, FiO2 35% and a PEEP of 5. Oxygen saturation on current mechanical ventilator settings 98%. - Cardiovascular Details: Regular rhythm and tachycardic rate. S1 and S2 present, negative for S3, gallop or murmur. Bedside telemetry showing sinus tachycardia heart rate 103. Heart hugger is in place. Right brachial arterial line in place and functioning. Right arm PICC line in place and functioning. Generalized +1 edema. - Gastrointestinal Gastrointestinal Comment(s): Abdomen is soft, nontender and nondistended. Active bowel sounds present in all 4 abdominal quadrants. No guarding or rigidity. No organomegaly appreciated. PEG tube in place to left upper quadrant abdomen, vital high-protein to feeding infusing at 20 mL per hour with automatic water flushes 30 mL every 4 hours. - Genitourinary Genitourinary Comment(s): Yu catheter for accurate I&O. Draining clear yellow urine. 355 mL output in the last 8 hours. - Integumentary Integumentary Comment(s): Skin is warm and dry. No clubbing or cyanosis present. Midline sternal incision is clean, dry and approximated. [place] clean and dry. Gauze dressing clean and dry. Left lower extremity EVH site is clean, dry and approximated. No drainage or redness is present. Stage II pressure ulcer to her coccyx. Erythema area to her right forearm. - Neurologic Neurologic Comment(s): The patient is awake and alert and no tracking with her eyes. She remains with profound weakness, not following any verbal commands with her bilateral upper and lower extremities. She does was drawn from painful stimuli to all 4 extremities. - Musculoskeletal Musculoskeletal Comment(s): Profound generalized weakness. - Psychiatric Psychiatric Comment(s): Unable to accurately assess at this time as the patient remains with midline trachea and place with mechanical ventilator support. Not following any verbal commands at this time. - Allied health notes Allied health notes reviewed: nursing - Labs CBC & Chem 7: 09/15/20 05:00 09/15/20 05:00 Labs: Abnormal Lab Results - Last 24 Hours (Table) 09/14/20 09/15/20 09/15/20 Range/Units 23:32 05:00 05:00 WBC 12.6 H (3.8-10.6) k/uL RBC 2.66 L (3.80-5.40) m/uL Hgb 7.7 L (11.4-16.0) gm/dL Hct 24.7 L (34.0-46.0) % RDW 17.2 H (11.5-15.5) % ABG pH (7.35-7.45) ABG HCO3 (21-25) mmol/L ABG Total CO2 (19-24) mmol/L ABG O2 Saturation (94-97) % BUN 26 H (7-17) mg/dL Glucose 107 H (74-99) mg/dL POC Glucose (mg/dL) 105 H (75-99) mg/dL 09/15/20 09/15/20 Range/Units 05:13 05:45 WBC (3.8-10.6) k/uL RBC (3.80-5.40) m/uL Hgb (11.4-16.0) gm/dL Hct (34.0-46.0) % RDW (11.5-15.5) % ABG pH 7.51 H (7.35-7.45) ABG HCO3 31 H (21-25) mmol/L ABG Total CO2 32 H (19-24) mmol/L ABG O2 Saturation 99.3 H (94-97) % BUN (7-17) mg/dL Glucose (74-99) mg/dL POC Glucose (mg/dL) 106 H (75-99) mg/dL - Imaging and Cardiology Chest x-ray: report reviewed, image reviewed Assessment and Plan Assessment: 1. Shortness of breath, acute diastolic heart failure, EF 55-60% on current TTE, bilateral pleural effusions 2. Lactic acidosis, septic shock, blood cultures positive for MSSA 3. Hypercapnic, hypoxic respiratory failure requiring BiPAP, with subsequent intubation and mechanical ventilation, status post tracheostomy placement 4. Open sternal wound, surgically created, deep sternal wound infection with MSSA, S/P surgical exploration and debridement with daily dressing changes, status post removal of cable and partial resection of the manubrium as well as partial sternectomy by Dr. Sethi, right pectoralis major myocutaneous flap, lef t pectoralis major myocutaneous flap by Dr. Whittaker. 5. Leukocytosis with bandemia, bandemia , WBC trending down 6. Acute kidney injury, metabolic acidosis, metabolic acidosis resolved, kidney function returning to normal after receiving dialysis 7. Acute hyperkalemia, resolved 8. Acute transaminitis secondary to hypoperfusion, resolved 9. History of hypertension, hypotensive this admission requiring vasopressors 10. Acute anemia, post transfusion PRBCs, on 11. Coronary artery disease with left main stenosis status post 2 vessel CABG on 08/10/2020 with expected postoperative acute blood loss anemia, hypotension, and urinary retention as well as candidal stomatititus 12. Hyponatremia, resolved 13. Pulmonary fibrosis, asthma 14. Hyperlipidemia, treated 15. Previous tobacco dependence 16. Obesity 17. Paroxysmal afib w/ RVR, atrial flutter, status post exclusion of the left atrial appendage using a 35 mm AtriClip, currently sinus tachycardia rhythm 18. 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 Malnutrition, status post EGD with PEG tube placement Plan: 1. Ventilator management per pulmonary/critical care medicine. Weaning trials managed by pulmonary/critical care medicine. 2. Nephrology following, avoid nephrotoxins, diuretic management per nephrology recommendations. Lasix 40 mg IV daily. 3. Infectious disease following, remains on cefepime and daptomycin for antibiotic coverage. Most recent blood cultures and sputum cultures negative for growth. 4. Continue aspirin, Plavix, , statin and beta sisi. We will increase metoprolol tartrate 75 mg per PEG tube twice a day 5. No anticoagulation at this time. 6. Will continue to monitor daily labs, chest x-rays, and ABGs. Replace electrolytes per protocol. 7. 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 8. GI/DVT prophylaxis. 9. Tube feedings have been restarted at 20 mL per hour vital high-protein, increase to goal rate as tolerated. 10. Patient's daughter Roberta updated on her care per phone. The patient's Kirby was updated at her bedside yesterday. 11. Restart Lipitor 40 mg per PEG tube daily as her liver enzymes have normalized. 12. Discontinue D5 0.45 normal saline with 20 KCl. 13. More recommendations to follow based on patient's clinical course. Time with Patient: Greater than 30
[2020-09-15] MEDS: METOPROLOL TARTRATE 25 MG TAB PO SCH ×2 (09:18→21:18)
--- NOTE | 2020-09-15 10:40 | XR ---
EXAMINATION TYPE: XR chest 1V portable DATE OF EXAM: 09/15/2020 COMPARISON: 09/14/2020 HISTORY: Tracheostomy tube placement TECHNIQUE: Single frontal view of the chest is obtained. FINDINGS: Diffuse bilateral patchy areas of mixed interstitial and alveolar infiltrate stable. Surgi marlin franc and suspected drains stable. Tracheostomy tube stable. Heart size enlarged. Small bilater al pleural effusions. Right-sided PICC line stable. Diffuse osteopenia noted. Indications in the righ t axilla stable. IMPRESSION: 1. Diffuse pleural-parenchymal changes are stable correlate for multifocal pneumonia otherwise consid er CHF.
[2020-09-15 10:58] LABS: Glucose,Whole Blood 106 mg/dL (75-99)
[2020-09-15] MEDS: ACETAMINOPHEN TAB 325 MG TAB PO PRN ×2 (11:03→17:21)
[2020-09-15] MEDS: DARBEPOETIN ALFA 40 MCG/0.4 ML SYRINGE SQ SCH (11:03)
[2020-09-15] MEDS: ASCORBIC ACID 500 MG TAB PO SCH (11:03)
[2020-09-15] MEDS: FERROUS SULFATE ORAL ELIXIR 300 MG/5 ML CUP PO SCH (11:04)
[2020-09-15 11:36] LABS: Glucose,Whole Blood 117 mg/dL (75-99)
--- NOTE | 2020-09-15 11:46 | P.PN ---
Subjective Progress Note Date: 09/15/20 This is a 75-year-old female with history of hypertension, hyperlipidemia, pulmonary fibrosis, status post bypass surgery with sternal infection and dehiscence for which she had surgery. Patient is also mentally not responding well. She is moving activities but doesn't respond appropriately to verbal sti muli. She is also on a respirator and going for tracheostomy and PEG tube. She still seemed to be awake but doesn't follow commands. Movements of the legs are noted. Cardiac standpoint we'll continue current medical therapy. She may need a long-term care 09/15/2020: This patient with history of hypertension, hyperlipidemia and pulmonary fibrosis status post CABG. Patient developed a sternal infection requiring surgery. Patient also mentally not responding well and appropriately. Patient had a tracheostomy yesterday. Patient appears to be awake and looking at you. Doesn't follow commands. Still moves extremities. She is being planned to be more prone to long-term care. Continue current medical therapy. We'll follow when necessary. Patient has been maintaining sinus rhythm Objective - Vital Signs Vital signs: Vital Signs Temp 991 F H 09/15/20 08:00 Pulse 98 09/15/20 11:40 Resp 23 09/15/20 11:07 BP 115/57 09/15/20 11:00 Pulse Ox 98 09/15/20 11:00 Intake & Output 09/14/20 09/15/20 09/15/20 18:59 06:59 18:59 Intake Total 1206 576 515 Output Total 2326 555 1053 Balance -1120 21 -538 Weight 80.1 kg 79.2 kg Intake: IV 906 576 315 Cefepime 2 gm In Sodium 100 100 100 Chloride 0.9% 100 ml @ 25 mls/hr IVPB Q12HR [facility] Rx #:[id number] D5-0.45% NaCl with KCl 400 440 100 20Meq/l 1,000 ml @ 40 mls /hr IV .Q24H [facility] Rx#: [id number] DAPTOmycin 500 mg In 50 100 Sodium Chloride 0.9% 50 ml @ 100 mls/hr IVPB Q24HR [facility] Rx#:[id number] Pressure Bag 36 36 15 Sodium Chloride 0.9% 1, 20 000 ml @ 10 mls/hr IV . Q24H [facility] Rx#:[id number] Intake, IV Titration 200 Amount Potassium Chloride 10 meq 200 In Water For Injection 1 100ml.bag @ 100 mls/hr IVPB Q1H [facility] Rx#: [id number] Oral 100 90 Tube Feeding 80 Other 30 Output: Drainage 104 38 RAHEEM #1. 4 3 RAHEEM #2 100 30 RAHEEM #3 0 5 Urine 2220 555 915 Stool 100 Estimated Blood Loss 2 Other: Voiding Method Indwelling Catheter Indwelling Catheter Indwelling Catheter # Voids 1 ABP, PAP, CO, CI - Last Documented Arterial Blood Pressure 97/39 - Exam GENERAL EXAM: Patient is status post a tracheostomy and PEG tube HEENT: Normocephalic. NECK: No masses, no nuchal rigidity. CHEST: No chest wall deformity. LUNGS: Equal air entry with no crackles or wheeze. HEART: S1 and S2 normal with no audible mumurs or gallops. Regular rhythm, femorals equal on both sides.. ABDOMEN: No hepatosplenomegaly, normal bowel sounds, no guarding or rigidity. SKIN: No rashes CENTRAL NERVOUS SYSTEM: Awake but doesn't respond appropriately to verbal stimuli. Moving extremities EXTREMITIES: No cyanosis, clubbing or edema. - Labs CBC & Chem 7: 09/15/20 05:00 09/15/20 05:00 Labs: Abnormal Lab Results - Last 24 Hours (Table) 09/14/20 09/15/20 09/15/20 Range/Units 23:32 05:00 05:00 WBC 12.6 H (3.8-10.6) k/uL RBC 2.66 L (3.80-5.40) m/uL Hgb 7.7 L (11.4-16.0) gm/dL Hct 24.7 L (34.0-46.0) % RDW 17.2 H (11.5-15.5) % ABG pH (7.35-7.45) ABG HCO3 (21-25) mmol/L ABG Total CO2 (19-24) mmol/L ABG O2 Saturation (94-97) % BUN 26 H (7-17) mg/dL Glucose 107 H (74-99) mg/dL POC Glucose (mg/dL) 105 H (75-99) mg/dL 09/15/20 09/15/20 09/15/20 Range/Units 05:13 05:45 10:56 WBC (3.8-10.6) k/uL RBC (3.80-5.40) m/uL Hgb (11.4-16.0) gm/dL Hct (34.0-46.0) % RDW (11.5-15.5) % ABG pH 7.51 H (7.35-7.45) ABG HCO3 31 H (21-25) mmol/L ABG Total CO2 32 H (19-24) mmol/L ABG O2 Saturation 99.3 H (94-97) % BUN (7-17) mg/dL Glucose (74-99) mg/dL POC Glucose (mg/dL) 106 H 106 H (75-99) mg/dL 09/15/20 Range/Units 11:35 WBC (3.8-10.6) k/uL RBC (3.80-5.40) m/uL Hgb (11.4-16.0) gm/dL Hct (34.0-46.0) % RDW (11.5-15.5) % ABG pH (7.35-7.45) ABG HCO3 (21-25) mmol/L ABG Total CO2 (19-24) mmol/L ABG O2 Saturation (94-97) % BUN (7-17) mg/dL Glucose (74-99) mg/dL POC Glucose (mg/dL) 117 H (75-99) mg/dL Assessment and Plan (1) CAD (coronary artery disease) Current Visit: Yes Status: Acute Code(s): I25.10 - ATHSCL HEART DISEASE OF [place] CORONARY ARTERY W/O ANG PCTRS SNOMED Code(s): 46605537 (2) CHF (congestive heart failure) Current Visit: Yes Status: Acute Code(s): I50.9 - HEART FAILURE, UNSPECIFIED SNOMED Code(s): 22399103 (3) Hyponatremia Current Visit: Yes Status: Acute Code(s): E87.1 - HYPO-OSMOLALITY AND HYPONATREMIA SNOMED Code(s): 91935230 (4) Sternal wound infection Current Visit: Yes Status: Acute Code(s): S21.101A - UNSP OPN WND R FRNT WL OF THORAX W/O PENET THOR CAVITY, INIT; L08.9 - LOCAL INFECTION OF THE SKIN AND SUBCUTANEOUS TISSUE, UNSP SNOMED Code(s): 89435416 (5) Status post aorto-coronary artery bypass graft Current Visit: Yes Status: Acute Code(s): Z95.1 - PRESENCE OF AORTOCORONARY BYPASS GRAFT SNOMED Code(s): 001616598 Plan: Continue current medical therapy. Possible transfer to long-term care
--- NOTE | 2020-09-15 12:35 | P.PN ---
Subjective Progress Note Date: 09/15/20 HISTORY OF PRESENT ILLNESS This is a 75-year-old female patient of Dr. Rich Avila, Dr. Sloan and Dr. Guadalupe. She has a past medical history significant for hypertension, hype rlipidemia, pulmonary fibrosis, asthma, obesity, remote history of tobacco dependence with smoking 32 years ago, osteoarthritis, cervical stenosis post anterior cervical decompression, discectomy and fusion, TIA as a child at age 11 and family history of premature coronary artery disease with her father being diagnosed in his early 50s. Recently, the patient has been experiencing episodes of shortness of breath over the past 6 months with just minimal activity. She also complained of some lower extremity swelling which did resolve with some diuresis. she underwent a stress test which showed anterior wall ischemia with small reversible defect. a 2-D echocardiogram which showed mild aortic valve insufficiency, mild mitral valve regurgitation, mild tricuspid valve regurgitation and left ventricular function to be normal with an ejection fraction of 55%. Subsequently she underwent an elective heart catheterization on 07/27/2020 which demonstrated a left main stenosis with QING with a calculation of 2.6 mm, a 40% stenosis to her mid left anterior descending coronary artery and a 30% stenosis to her right coronary artery. Due to the patient's symptoms and findings on her heart catheterization of left main stenosis a consult was placed to Dr. Sethi from cardiothoracic surgery for further evaluation and treatment recommendations. During her preoperative workup her serum sodium level was found to be 120 and was admitted prior to surgery for treatment of hyponatremia. Last admission On 08/06/2020-08/19/20 the patient was admitted to the hospital for treatment of her hyponatremia, and once her hyponatremia was resolved on 08/10/2020, asubsequently taken to the operating room where Dr. Sethi performed a double vessel coronary artery bypass grafting surgery using the left internal mammary artery to left anterior setting coronary artery, a reverse greater saphenous vein graft from the aorta to the first obtuse marginal coronary artery, endoscopic harvesting of the left greater saphenous vein from the groin Upon completion of the surgery the patient was transferred to the intensive care unit where she was recovered, monitored hemodynamically and where she progressed cardiac rehabilitation phase Her oxygen was titrated down, she continued to work with physical/occupational therapy and cardiac rehabilitation, she was tolerating an oral diet, her pain was well controlled without narcotics and she was ready to be discharged home with [facility] care on postoperative day #9. Did not require home O2 on last admission however she required new medication changes including diuretics during that last admission. Patient comes in in worsening shortness of breath anasarca, no chest pain, has BARKER, edma without leg pain new medications from last visit was compliant, requiring lipitor 75bid, tolvaptan. meotprolol 75 bid plavix, lasix 40 mg daily losartain 25 asa 325, ferrous sulfate and fluconazole. patient comes in now for CHF, anarsarc ely pleural effusion, consult with dr Sethi. and cardiology, if okay will be cardiothoracic surgeon can also perform the thoracentesis, however with hypoxemia, also have requested Dr. Gamboa's services. Patient has a hemoglobin of 7.0 on and 3, platelet count of 305, hemoglobin right to admission was 8.0 denies any Hemoccult stools, creatinine was 1.60 from a previous of 0.9 blood pressure is in the low 90s systolic, pulse ox, 90 on 4 L nasal cannula, patient was not discharged with home O2 during her last admission 08/24: A-Team was called for mental status changes. Patient was found to have a blood pressure 99/65, heart rate of 85 and pulse ox of 96% on a nonrebreather with respiratory rate of 32. Patient was transferred to the ICU. She was started on vancomycin and cefepime. Patient has been seen by cardiology with plan to continue vasopressor support, patient may need pleurocentesis. Stat echocardiogram was done to rule out pericardial effusion or tamponade. Patient has been seen by nephrology for acute kidney injury secondary to ATN secondary to hypotension and cardiorenal syndrome. Patient is currently on bicarb drip, status post Lasix 80 mg IV once. Renal replacement therapy to be initiated immediately. Vascular consult in place for a dialysis catheter placement and start hemodialysis today with second treatment tomorrow. Sternal wound was producing thick yellowish brown fluid, was opened approximately 2 cm and deep culture was taken, packed and covered with 4 x 4 dressing. She is requiring vasopressors. She is hypothermic and warming blanket is in place.Patient had minimal output yesterday and none today. She is status post 2.5 L of fluids. 08/25 patient was examined in the ICU. She was able to maintain oxygenation on BiPAP overnight switch to high flow 15 m this morning. Patient did have episodes of agitation last night and was started on Seroquel. She did receive a dose of Seroquel prior to admission and was found to be resting comfortably. Patient is off pressors and bicarbonate drip and metabolic acidosis seemed to have cleared off. On evaluation of patient's lab, WBC is 14.3, hemoglobin 6.5 platelet 208 ABG this morning has a pH of 7.47 CO2 74. Bicarb 29. Sodium has improved to 126 chloride 96 BUN 43 creatinine 2.79 lactic acid has improved to 2.9 calcium 7 liver enzymes elevated AST at 2874 ALT 1469 alkaline phosphatase 192 CRP 356 BNP 13,000 UA does suggest some infection with WBC of 88 hyaline casts 33 protein 2+ urine blood trace nitrite negative leukocyte Estrace negative. Wound cultures positive for presumptive staph aureus. Patient's blood culture from yesterday are positive with presumptive staph aureus. Repeat blood cultures ordered. Patient received 1 unit of PRBCs for low hemoglobin. Urine output has improved to 20-40 mL's per hour. Patient did receive a dose of DDAVP for hyponatremia. Normal saline is running at 50 mL per hour. Did receive hemodialysis today with 2 L ultrafiltration. Patient was also noted to be in A. fib with RVR intermittently and her dose of Lopressor was increased to 25 mg every 8 hours. Continue daptomycin and cefepime for antibiotic coverage. Monitor patient's for QTC prolongation well on Seroquel. Patient has significant dehiscence of wound and may need I&D 08/26: She was intubated and placed on mechanical ventilation overnight with pulse ox of 96%, tidal volume 450, FiO2 50, PEEP of 5. Temperature max last evening was 101.2. Heart rate 82, blood pressure 120/53. WBC 9.6, hemoglobin 10.8, platelet count 159. Sodium 134, potassium 4.7, chloride 100, CO2 25, BUN 14 creatinine 1.83. Blood sugars running between 100 2753. Total bilirubin 3.3, AST 1067, ALT 993, alkaline phosphatase 251. Magnesium 2.1. Patient is on vasopressors. bus monitor atrial flutter alternating with sinus rhythm. Patient is also on propofol and Seroquel discontinued. Thoracic surgery is possible taking her to or for I&D and considering wound VAC. Patient is on Plavix. Echocardiogram reveals normal LV function and mild aortic stenosis. Patient is currently on daptomycin and cefepime per Dr. Mcintyre. Urine output remains low at 15-20 mL per hour. Should she is scheduled for third hemodialysis treatment today. Patient is scheduled for Lasix 80 mg IV this afternoon. 08/27 she remains in the ICU, intubated and mechanically ventilated. Patient is going to the OR for debridement today. Patient remains intubated on 50% FiO2 and PEEP of 5, assist control rate of 20volume 450. Continues to require Levophed at 11mcg/ hr . Blood clots and culture positive for MSSA. Urine output is 50-60 mL per hour. Patient continues to be on sedation from propofol at 50 max per KG permanent. IV fluids at KVO. Patient continues to have good urine output after a dose of 80 mg of IV Lasix today. Vision tolerated 2.5 L ultrafiltration yesterday and is started on hemodialysis on August 24. No holiday sedation today. Plan to continue Lasix 80 IV once daily and holding hemodialysis. Anticoagulation held for debridement. 08/28 patient remains in the ICU. Did have sternal Exploration and debridement yesterday remains sedated on propofol. Patient continues to have high temp of 101.6, to 233 tachycardic 111 blood pressure 106/51 oxygen saturation 95% on 50% FiO2. Labs suggest a leukocytosis of 24.3 hemoglobin stable at 10.7 platelet count has dipped dropped to 78, he really suggest a pH of 7.53 pCO2 30 PaO2 57, chloride of 110 potassium 3.5 and anion gap of 6 BUN 46 creatinine 0.9 calcium 7.8 ALT 3:15 alkaline phosphatase 312 AST 112 blood cultures from 08/26 positive for staph aureus. Urine output 1.2 L in 24 hours Repeat blood cultures sent today. Patient continues to be normal sinus rhythm not currently on any anticoagulation at the possibility of going for another debridement. Patient's continues to be on levo fed and still stays intubated. Continue IV Lasix. Patient initiated on IV Lasix 08/29: Patient remain in the ICU, remain on mechanical ventilation, sternal exploration and debridement was done and still have packing area within open wound at this point. Oxygenation is better patient is not 3 to be off vent at this point. Her urine output has been good and hemodynamically stable. 08/30: Patient still on mechanical ventilation, his sternum 1 and was changed today still have significant amount of infection and pus was packed still open. Patient remain on nafcillin and Moni mycin. Still having positive blood culture. 08/31: Patient is more awake today doing trial of weaning parameter try to get patient off the respirator, her incision and infection along the sternum is no change still have packing on still on IV antibiotics. Hemodynamically is more stable. 09/01: Patient evaluated in the ICU, continues on mechanical ventilation. Wound packing was removed yesterday, purulence was noted on the packing, deep near the heart and purulence around the heart. She continues on IV clindamycin and nafcillin. Patient was taken off sedation yesterday for a trial of weaning, but she became hypertensive and tachypneic so she is placed back on sedation. 09/02: Patient remains intubated and on mechanical ventilation with tidal volume 400, FiO2 of 50% and PEEP of 5. Patient has been off sedation since Monday. She is receiving OG tube feedings. She appears to be opening meaning her eyes and can shake her head. Otherwise not moving extremities. She has a wound VAC in place to the sternal wound. Wound cultures and blood culture positive for MSSA. She is scheduled for sternal wound excision and debridement with flap reconstruction and graft tomorrow with Dr. Whittaker. Repeat blood work reveals WBC of 13.6, hemoglobin 8.5. BUN 66 and creatinine 1.62, potassium 3.2 and has been replaced, blood sugars running between 107 and 132. Because renal functioning is worsening, nephrology has recommended holding nafcillin. Repeat chest x-ray reveals correlate for pneumonia, edema, ARDS. 09/03: She remains in the intensive care unit intubated and on mechanical ventilation with tidal volume 400, FiO2 40, PEEP of 5. Patient is awake with eyes open. She nodded her head no to having pain. She had a temperature this morning of 101.6 at 6 AM. Antibiotics are currently in the form of Kefzol. Repeat chest x-ray was done this morning and report is pending. Patient has been seen by neurology and doubt critical illness neuropathy. CAT scan of the brain and cervical spine done that showed no acute fracture or dislocation in the cervical spine. No acute intracranial hemorrhage, mass effect or midline shift. Ongoing airspace disease. Cardiology has recommended reinitiating statin. Temperature max 101.6, heart rate 101, blood pressure 117/52, pulse ox 95%. Repeat blood work reveals WBC 15.4, hemoglobin 8.3, platelet count 243. Sodium 149, potassium 2.8, chloride 111, CO2 28, BUN 66 and creatinine 1.49. Total bilirubin 2.4, AST 43, ALT 33 and alkaline phosphatase 260. All previous blood cultures have been positive for staph aureus MSSA. A repeat blood culture on August 2029 showing no growth at 24 hours. 09/04: Yesterday, patient underwent excision of sternal wound, partial sternotomy and pectoralis flap procedure. This morning, patient had new lines done by pulmonary medicine. Dr. Mcintyre has recommended continuing Kefzol and repeat blood cultures are in progress. Repeat chest x-ray reveals rotated exam, findings similar to prior, correlate for edema, pneumonia, ARDS. Cardiothoracic surgeryhas ordered a consult with Dr. Yuan. He has evaluated patient for global weakness and does not think she has new cervical spine issues that would cause her global weakness.patient continues to have fever with temperature maximum 102.2, tachycardic in the low 100s, respiratory rate 30, blood pressure 103/60, pulse ox 98%. She remains intubated and on mechanical ventilation with tidal volume 400, FiO2 50, PEEP of 5. WBC 17.5, hemoglobin 7.2, platelet count 328. Sodium 149, potassium 3.8, chloride 115, CO2 26, BUN 59 and creatinine 1.37. Blood sugars running 129-144. Magnesium 2.6. Total bilirubin 2.0, AST 39, alkaline phosphatase 197, ALT 19.. sputum culture has been obtained. Most recent blood culture from September 02 showing no growth at 24 hours and blood culture from September 01 is no growth at 48 hours. Patient is currently on very minimal sedation. 09/05: Patient remains in the ICU, intubated and on mechanical ventilation with tidal volume 400, FI02 40% and peep 5. Patient continues to run fevers. Dr. Mcintyre has changed antibiotics to cefepime and daptomycin. Blood cultures dated September 01, , are showing no growth. Sputum culture is in process. bus monitor sinus tachycardia. Heart rate has been running between 108 and 121, respiratory rate 31, blood pressure 90/32, pulse ox 98%. She remains on low dose norepinephrine. Patient is off sedation with eyes open. She is not moving extremities. She has been evaluated by orthopedic spine and spinal etiology has essentially been ruled out. Patient is also been evaluated by neurology and critical care neuropathy has also been essentially ruled out. Patient stabilized, hopefully a MRI can be performed. WBC 13.4, hemoglobin 5.4 and this was rechecked, platelet count 313, sodium 152, potassium 3.6, BUN 45 and creatinine 1.2. Patient is receiving 1 unit of packed RBCs. Nephrology is continuing IV Lasix 40 mg daily. Patient is on PEG tube feedings and tolerating. 09/06: Patient remains in intensive care unit. She is intubated and on mechanical ventilation with tidal volume 400, FiO2 40, PEEP 5. The patient has her eyes open, she is responsive with facial movement, she is able to minimally move lower extremities. She has a fecal management system in place as well as Yu catheter with good urine output. Patient was running fevers yesterday until evening. Patient has been afebrile following a reading of 1800 last night of 100.9. She is on IV antibiotics with cefepime and daptomycin. Heart rate 95-112, respiratory rate 28. Repeat chest x-ray reveals cardiomegaly with increased alveolar and interstitial edema and/or infiltrates bilaterally remain present. Possible ARDS. Hemoglobin today is at 8 status post She is continued on IV Lasix per nephrology. Potassium replaced. W BC 10.6, platelet count 276. Sodium 150, potassium 3.6, chloride 119, CO2 24, BUN 42 and creatinine 1.03. Blood sugar 140. Patient is receiving tube feedings at goal rate. 09/07: She remains in the intensive care unit, intubated and on mechanical ventilation with FiO2 of 40%, PEEP of 5. She remains off sedation and is awake and able to follow some minimal commands. Mature max 101.6, heart rate 104, respiratory rate 34, blood pressure 81/30, pulse ox 97%. AP blood work reveals WBC 11.8, hemoglobin 9.5, platelet count 347. Sodium 148, potassium 3.7, chloride 117, CO2 25, BUN 38 and creatinine 0.96. Blood sugar running between 112 117. Magnesium 2.0. Total bilirubin 1.5, AST 41, ALT 19, alkaline phosphatase 181. Albumin 2.4. Blood cultures on every remain without g rowth at 120 hours. Sputum culture has been finalized no growth. Patient is continued on cefepime and optimizing. PICC line is being inserted this morning by interventional radiology. OG tube with feedings at goal. Patient is not currently on vasopressors. 3: Patient remains in the intensive care unit intubated and on mechanical ventilation with tidal volume 400, FiO2 35 and PEEP of 5. Patient was on CPAP yesterday for about 8 hours but was unable to tolerate for only short period today. Her mental status has been labile. She is intermittently following commands with no response and staring. Patient appears to be uncomfortable. Generalized anasarca noted. She has brown liquid stool from fecal management system and we will check a C. diff toxin. Most likely diarrhea is only from tube feedings. Temperature max 101.6. Heart rate 113, respiratory rate 39, blood pressure 120/61, pulse ox 99%. Repeat chest x-ray reveals correlate for pneumonia, edema, ARDS. Repeat blood work reveals WBC 10, hemoglobin 7.4, platelet count 298. Sodium 145, potassium 3.4, chloride 114, CO2 24, BUN 33 and creatinine 0.85. Blood sugars are running between 115 and 122. Total bilirubin 1.2, AST 39, ALT 23, and phosphatase 150. Urinalysis sent last evening showed blood moderate, RBC 64, WBC 7. Blood cultures since every are showing no growth. 09/09: Patient remains in the intensive care unit intubated and on mechanical ventilation. Patient has been started on Precedex. She remains with [address] to the sternal wound. Yu catheter with good urine output. Fecal management system in place. C. difficile toxin was negative. 2. Feedings are at goal. The patient is not focusing eyes, no purposeful movements. Patient has been afebrile greater than 24 hours. Heart rate 90s, respiratory rate 30s to 40s, blood pressure 112/64, pulse ox 97%. WBC 9.0, hemoglobin 7.3, platelet count 292. Potassium 3.4 and will be replaced. Blood sugars running between 100 2049. Alkaline phosphatase 161. TSH 3.7-0. We have also added a vitamin B12 level. Lasix was increased to twice daily. Temperature max 100.6. 09/10: Patient remains in intensive care unit, intubated and on mechanical ventilation with tidal volume 400, FiO2 35, PEEP 5. Patient has been started on propofol since yesterday's eval. Temperature max 100.6, heart rate 80, respiratory rate 28, blood pressure 104/60, pulse ox 90%. Repeat blood work reveals Connie BC 12.5, hemoglobin 7.4, platelet count 403. Electrolytes are normal. BUN 34 and creatinine 0.81. Blood sugars are running 123 236. Magnesium 2.0. AST 42, ALT 31, alkaline phosphatase 183. Chest x-ray is stable. 09/11:she remains in the intensive care unit, intubated and on mechanical ventilation. Patient has been off sedation this morning. Her eyes are open but she has no reaction, does not follow instructions. No purposeful movements.CAT scan of the cervical spine reveals C3-C7 ACDF hardware causing artifact. Thickening of the prevertebral soft tissues likely due to intubation state disc osteophyte complex contributing to moderate spinal stenosis at C3-C4. Severe left neural foraminal stenosis. Moderate to severe right neural foraminal stenosis at C6-C7. Degenerative grade 1 anterolisthesis at C7-T1. Thoracic spine CAT scan revealed no vertebral compression collapse. Degenerative grade 1 anterolisthesis secondary to hypertrophic facet arthropathy below the ACDF at C7-T1. Low utility for epidural abscess. No endplate erosions are seen.CAT scan of the brain reveals no acute intracranial abnormality. No enhancing intracranial lesions. Layering fluid in the mastoid air cells. repeat chest x- ray reveals correlate for pneumonia, junk congestive heart failure and pulmonary edema, ARDS. Lasix decreased to 40 mg IV once daily. free water flushes have been discontinuedper nephrology. Patient is followed by cardiology and pulmonary medicine as well. Patient has been afebrile since September 09. Heart rate in the 90s, respiratory rate in the 20s,110/44. WBC 13.2, hemoglobin 7.7, platelet count 428. Sodium 136, potassium 3.9, [id number], CO2 25, BUN 32 and creatinine 0.86. Blood sugars are running between 121 and 132. Alkaline phosphatase 163. Blood cultures since every have shown no growth. 09/12: patient remains in the intensive care unit, intubated and on mechanical ventilation. Patient has been off sedation this morning. Her eyes are open but she has no reaction, does not follow instructions. No purposeful movements.CAT scan of the cervical spine results noted above. Lasix decreased to 40 mg IV once daily. free water flushes have been discontinuedper nephrology. Patient is followed by cardiology and pulmonary medicine as well. Patient has been afebrile since September 09. Heart rate in the 90s, respiratory rate in the 20s,110/44. WBC 13.2, hemoglobin 7.7, platelet count 428. Sodium 136, potassium 3.9, [id number], CO2 25, BUN 32 and creatinine 0.86. Blood sugars are running between 121 and 132. Alkaline phosphatase 163. Blood cultures since every have shown no growth. 09/13: Remains in intensive care unit, intubated and on mechanical ventilation. Spontaneous respirations was attempted for approximate 40 minutes. Patient's respiration rate increased to 40 with increase in heart rate. Patient is scheduled for a trach on Monday with Dr. Sethi and a PEG tube with Dr. Oscar on Monday. WBC 11.2, hemoglobin 7.5, platelets 44. Blood sugars running from 120 to 130s. Blood pressure 170/62, patient remains afebrile, respirations 18, heart rate 108 FiO2 35 09/14: Remains in the intensive care unit, intubated and on mechanical ventilation with tidal volume 400, FiO2 35 of PEEP of 5. Patient is scheduled for Lasix which is going to be given after her procedures. Patient is scheduled for PEG tube and trach this morning. She remains with [address], midsternal having 50 MLS per shift. She also has Yu catheter and with 40 ML's per hour. She is not currently on vasopressors. Patient has a coccyx decubitus ulcer H2O she has coccyx area. She also has opted form to the scapula area. She has been afebrile, heart rate 92-108, blood pressure 136/85, pulse ox 97%. 2. Blood work reveals WBC 12.3, hemoglobin 8, platelet count 431. Electrolytes normal. BUN 31 and creatinine 0.73. Alkaline phosphatase 158. Repeat chest x-ray reveals diffuse pleural parenchymal changes are stable correlate for diffuse pneumonia, ARDS or heart failure. 09/15: is status post PEG tube placement and trach. She remains on mechanical ventilation on CPAP. She is at on tube feedings. She remains with no purposeful movement. She has been afebrile, heart rate 100, blood pressure 123/68, pulse ox 99%. Repeat blood work reveals Connie BC 12.6, hemoglobin 7.7. Electrolytes normal, BUN 26 creatinine 0.85. Blood sugars 105-117. Social work is following for discharge planning. Patient has been off vasopressors. REVIEW OF SYSTEMS Unable to obtain due to mental status change/intubation. PHYSICAL EXAMINATION Gen: This is a 75-year-old female. Patient is resting in ICU bed and appears to be comfortable. HEENT: Head is atraumatic, normocephalic. Pupils equal, round. Sclerae is anicteric. Midline trach with mechanical ventilation. NECK: Supple. No JVD. No lymphadenopathy. LUNGS: Diminished. No wheezes or rhonchi. No intercostal retractions. HEART: Regular rate and rhythm. 2/6 systolic murmur. Dressing to sternal wound, 3 RAHEEM drains with serosanguineous drainage. ABDOMEN: Soft. Bowel sounds are present. No masses. No tenderness. PEG tube in place. The catheter draining jac urine. Fecal management system with brown liquid stool. EXTREMITIES: 1+ bilat pitting edema. Generalized anasarca. NEUROLOGICAL: Patient resting comfortably in bed, eyes are open and staring, patient is not making any purposeful movements. She is able to move all extremities. ASSESSMENT AND PLAN 1. Acute diastolic heart failure, (POA) EF 55%, mild AI and mild MR and mild TR, also complicated by severe protein calorie malnutrition, Cardiology consult appreciated. Continue Lasix 40 mg IV daily managed by nephrology. 2. Acute hypoxemic respiratory failure. (POA) Patient has underlying pulmonary hypertension as well, consult with coronary. Patient is intubated and on mechanical ventilation. Pulmonary medicine is managing. Tracheostomy today. 3. Acute kidney injury secondary to ATN secondary to hypotension and cardiorenal syndrome. (POA) Patient is status post dialysis catheter placement, hemodialysis. Patient is followed closely by nephrology. 4. Hyperkalemia secondary to potassium supplementation, losartan and acute kidney injury as well as severe acidosis. (POA) Consult with nephrology appreciated. Continue medical management. 5. Metabolic acidosis secondary to acute kidney injury. (POA) 6. Metabolic encephalopathy secondary to acute kidney injury, acute heart failure, acute respiratory failure, metabolic acidosis and hyperkalemia. (POA) improving. 7. Sepsis with septic shock with multiorgan failure with metabolic encephalopathy, acute kidney injury, acute heart failure, acute respiratory failure, MSSA bacteremia. (POA) status post sternal exploration and sternal debridement on August 27. She requires vasopressors. Possible MSSA pneumonia on CAT scan. Patient is continued on cefepime and daptomycin. 8. Sepsis with sternal wound dehiscence. (POA) Status post sternal exploration and sternal debridement on 08/27 followed by excision of sternal wound, partial sternotomy and pectoralis flap procedure on 09/03. Infectious disease consult appreciated. Antibiotics have been transitioned to cefepime and daptomycin. Status post PEG tube and trach. 9. Acute blood loss anemia, postop, status post transfusion of 5 units of packed RBCs. Continue to monitor. 10. Hyponatremia. Continue to monitor. 11. CAD, with prior CABG performed on 08/10/2020, two-vessel, involving HOLLAND to LAD, and reverse greater saphenous vein to obtuse marginal coronary artery. Continue aspirin 325 mg daily, Plavix 75 mg daily, Toprol all 75 mg twice a day, 12. Severe protein calorie malnutrition, with anasarca and hypotension. Continue tube feedings. PEG tube. 13. History of pulmonary fibrosis. Continue duo nebs and albuterol 14. Asthma, mild intermittent. Continue ipratropium albuterol nebulizers 15. Hyperlipidemia. Continue statin daily 16. Hypertension. Currently hypotensive 17. GI prophylaxis. Pantoprazole 18. Critical care neuropathy essentially ruled out by and neurology. 19. DVT prophylaxis: SCDs 20. Blood sugar management in a nondiabetic. insulin scale every 6 hours. 21. Acute transaminitis secondary to hypoperfusion. 22. Chronic kidney disease stage II. 23. Stage II coccyx decubitus ulcer. Prognosis guarded DISCHARGE PLAN TBD. Social work is following her discharge planning. Impression and plan of care have been directed as dictated by the signing physician. Monica Fragoso nurse practitioner acting as scribe for signing phys gely. Objective - Vital Signs Vital signs: Vital Signs Temp 991 F H 09/15/20 08:00 Pulse 85 09/15/20 09:00 Resp 52 H 09/15/20 09:00 BP 110/61 09/15/20 09:00 Pulse Ox 98 09/15/20 09:00 Intake & Output 09/14/20 09/15/20 09/15/20 18:59 06:59 18:59 Intake Total 1206 576 369 Output Total 2326 555 353 Balance -1120 21 16 Weight 80.1 kg 79.2 kg Intake: IV 906 576 269 Cefepime 2 gm In Sodium 100 100 100 Chloride 0.9% 100 ml @ 25 mls/hr IVPB Q12HR [facility] Rx #:[id number] D5-0.45% NaCl with KCl 400 440 60 20Meq/l 1,000 ml @ 40 mls /hr IV .Q24H [facility] Rx#: [id number] DAPTOmycin 500 mg In 50 100 Sodium Chloride 0.9% 50 ml @ 100 mls/hr IVPB Q24HR [facility] Rx#:[id number] Pressure Bag 36 36 9 Sodium Chloride 0.9% 1, 20 000 ml @ 10 mls/hr IV . Q24H [facility] Rx#:[id number] Intake, IV Titration 200 Amount Potassium Chloride 10 meq 200 In Water For Injection 1 100ml.bag @ 100 mls/hr IVPB Q1H [facility] Rx#: [id number] Oral 100 30 Tube Feeding 40 Other 30 Output: Drainage 104 38 RAHEEM #1. 4 3 RAHEEM #2 100 30 RAHEEM #3 0 5 Urine 2220 555 315 Estimated Blood Loss 2 Other: Voiding Method Indwelling Catheter Indwelling Catheter Indwelling Catheter # Voids 1 ABP, PAP, CO, CI - Last Documented Arterial Blood Pressure 108/46 - Labs CBC & Chem 7: 09/15/20 05:00 09/15/20 05:00 Labs: Abnormal Lab Results - Last 24 Hours (Table) 09/14/20 09/15/20 09/15/20 Range/Units 23:32 05:00 05:00 WBC 12.6 H (3.8-10.6) k/uL RBC 2.66 L (3.80-5.40) m/uL Hgb 7.7 L (11.4-16.0) gm/dL Hct 24.7 L (34.0-46.0) % RDW 17.2 H (11.5-15.5) % ABG pH (7.35-7.45) ABG HCO3 (21-25) mmol/L ABG Total CO2 (19-24) mmol/L ABG O2 Saturation (94-97) % BUN 26 H (7-17) mg/dL Glucose 107 H (74-99) mg/dL POC Glucose (mg/dL) 105 H (75-99) mg/dL 09/15/20 09/15/20 Range/Units 05:13 05:45 WBC (3.8-10.6) k/uL RBC (3.80-5.40) m/uL Hgb (11.4-16.0) gm/dL Hct (34.0-46.0) % RDW (11.5-15.5) % ABG pH 7.51 H (7.35-7.45) ABG HCO3 31 H (21-25) mmol/L ABG Total CO2 32 H (19-24) mmol/L ABG O2 Saturation 99.3 H (94-97) % BUN (7-17) mg/dL Glucose (74-99) mg/dL POC Glucose (mg/dL) 106 H (75-99) mg/dL
--- NOTE | 2020-09-15 14:15 | P.PN ---
Subjective Progress Note Date: 09/15/20 Patient was seen for a follow-up. Patient underwent tracheostomy and PEG placement 09/14/2020. Patient's was present today. Patient is alert and awake, does not follow commands. Please refer to examination section. Objective - Vital Signs Vital signs: Vital Signs Temp 100 F H 09/15/20 12:00 Pulse 100 09/15/20 13:00 Resp 28 H 09/15/20 13:00 BP 97/53 09/15/20 12:00 Pulse Ox 97 09/15/20 13:00 Intake & Output 09/14/20 09/15/20 09/15/20 18:59 06:59 18:59 Intake Total 1206 576 641 Output Total 2326 555 1163 Balance -1120 21 -522 Weight 80.1 kg 79.2 kg Intake: IV 906 576 361 Cefepime 2 gm In Sodium 100 100 100 Chloride 0.9% 100 ml @ 25 mls/hr IVPB Q12HR [facility] Rx #:[id number] D5-0.45% NaCl with KCl 400 440 140 20Meq/l 1,000 ml @ 40 mls /hr IV .Q24H [facility] Rx#: [id number] DAPTOmycin 500 mg In 50 100 Sodium Chloride 0.9% 50 ml @ 100 mls/hr IVPB Q24HR [facility] Rx#:[id number] Pressure Bag 36 36 21 Sodium Chloride 0.9% 1, 20 000 ml @ 10 mls/hr IV . Q24H [facility] Rx#:[id number] Intake, IV Titration 200 Amount Potassium Chloride 10 meq 200 In Water For Injection 1 100ml.bag @ 100 mls/hr IVPB Q1H [facility] Rx#: [id number] Oral 100 90 Tube Feeding 130 Other 60 Output: Drainage 104 38 RAHEEM #1. 4 3 RAHEEM #2 100 30 RAHEEM #3 0 5 Urine 2220 555 1025 Stool 100 Estimated Blood Loss 2 Other: Voiding Method Indwelling Catheter Indwelling Catheter Indwelling Catheter # Voids 1 ABP, PAP, CO, CI - Last Documented Arterial Blood Pressure 124/50 - Exam 09/15/2020: Patient is alert and awake, but very encephalopathic. Eyes are open. Patient does not follow commands. Patient has tracheostomy in place. Pupils are round and reactive to light, face appears symmetric. Patient did not smile or protrude her tongue. Patient turns her head, slightly to one or the other side, almost like a bird. Sometimes she moves her legs one or the other e n-blok, appears to have good muscle mass. At times, patient extends her legs. However patient is very spastic as per reflexes. Reflexes (right/left) biceps 3+/2, brachioradialis 3+/3+, knees 3/3, ankles are 1+, plantars are upgoing bilaterally. Sensory or cerebellar examination could not be tested. 09/14/2020: Patient sedated, therefore exam deferred. Just had undergone tracheostomy and PEG placement. 09/06/2020: Patient asleep, sedated, therefore detailed examination deferred. 09/05/2020: On examination patient is awake, opens her eyes, , sometimes tracks, the times not. Patient again smiled slightly to asking her to smile. Otherwise did not answer or nodded if she has pain anywhere, did not follow any commands regarding extremities. Very slight movement to painful stim with us on the right foot but not in the other 3 extremities. Patient was noted to have some rhythmic head movement [id number] and then she would have low amplitude slow bicycling type of activity in the arms and legs. No twitching, but was consistent for some time. Patient not even responding to her for following commands except for that she did turn her head and made eye contact with her . Did not tell if she is in pain anywhere. Her pupils are round and reacting. Visual lópez could not be tested. Face appears symmetric. She is on ventilator. No movement in the 4 extremities except for some rhythmic movement as above. - Labs CBC & Chem 7: 09/15/20 05:00 09/15/20 05:00 Labs: Abnormal Lab Results - Last 24 Hours (Table) 09/14/20 09/15/20 09/15/20 Range/Units 23:32 05:00 05:00 WBC 12.6 H (3.8-10.6) k/uL RBC 2.66 L (3.80-5.40) m/uL Hgb 7.7 L (11.4-16.0) gm/dL Hct 24.7 L (34.0-46.0) % RDW 17.2 H (11.5-15.5) % ABG pH (7.35-7.45) ABG HCO3 (21-25) mmol/L ABG Total CO2 (19-24) mmol/L ABG O2 Saturation (94-97) % BUN 26 H (7-17) mg/dL Glucose 107 H (74-99) mg/dL POC Glucose (mg/dL) 105 H (75-99) mg/dL 09/15/20 09/15/20 09/15/20 Range/Units 05:13 05:45 10:56 WBC (3.8-10.6) k/uL RBC (3.80-5.40) m/uL Hgb (11.4-16.0) gm/dL Hct (34.0-46.0) % RDW (11.5-15.5) % ABG pH 7.51 H (7.35-7.45) ABG HCO3 31 H (21-25) mmol/L ABG Total CO2 32 H (19-24) mmol/L ABG O2 Saturation 99.3 H (94-97) % BUN (7-17) mg/dL Glucose (74-99) mg/dL POC Glucose (mg/dL) 106 H 106 H (75-99) mg/dL 09/15/20 Range/Units 11:35 WBC (3.8-10.6) k/uL RBC (3.80-5.40) m/uL Hgb (11.4-16.0) gm/dL Hct (34.0-46.0) % RDW (11.5-15.5) % ABG pH (7.35-7.45) ABG HCO3 (21-25) mmol/L ABG Total CO2 (19-24) mmol/L ABG O2 Saturation (94-97) % BUN (7-17) mg/dL Glucose (74-99) mg/dL POC Glucose (mg/dL) 117 H (75-99) mg/dL Assessment and Plan Assessment: * New onset quadriplegia, unclear etiology. Patient is clearly spastic in the arms and legs with bilateral Babinski. Rule out myelomalacia due to spinal stenosis, transverse myelitis or other cord abnormality. CT of the cervical and thoracic spine with IV contrast showed no evidence of discitis osteomyelitis. 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 Improved. Blood cultures negative since 09/01/2020. * Status post CABG, followed by wound infection, requiring sternal debridement with persistent sepsis. Status post placement of muscle flap. * Status post Septic shock with MSSA * Acute kidney injury, improving significantly * Acute transaminitis, improving * Anemia * CHF * Hypertension * History of cervical fusion, spinal stenosis in the past. Plan: * Patient continues to be very spastic in the arms and legs. Also has encephalopathy, not following commands. Await MRI of the brain and cervical spine, when able to be performed. * EEG 09/05/2020, which was abnormal due to background slowing of moderate to severe degree. This is suggestive of generalized cerebral dysfunction as can be seen with toxic metabolic encephalopathy or related to diffuse structural brain abnormality. No epileptiform activity was seen. No indication for antiepileptic medication. * Patient continues to be encephalopathic, due to toxic metabolic encephalopathy. * Appreciate Orthopedic spine input. Hardware in the cervical spine is stable. No loosening. * CPK 74, TSH 1.87, aldolase 8.4 (1.2 to 7.6). * Anemia, improved. CT abdomen and pelvis negative. * Neurology will follow. Discussed with patient's in detail.
--- NOTE | 2020-09-15 15:03 | P.PN ---
Subjective Progress Note Date: 09/15/20 Principal diagnosis: Acute hypoxic and hypercapnic respiratory failure secondary to sepsis and septic shock. 09/13/2020, the patient remains off sedation. She opens her eyes. She follows people around the room. She moves her legs occasionally. I haven't seen in follow-up in a maintenance. She does not follow commands. No seizure activity. No agitation. She seems to be quite and comfortable. Watching her, she can move her legs clearly and I've seen this on several occasions. The patient remains on a mechanical ventilator. She is on assist control mode, VC plus, r ate of 20 with a tidal volume of 400 and an inspiratory time of 0.8 with an FiO2 of 35% and a PEEP of 5. Her chest x-ray was showing improvement in the pulmonary infiltrates. The follow-up chest x-ray from today showed adequate positioning of ET tube. There is still some scattered bilateral pulmonary infiltrates, however, overall, findings are stable and the NG tube and orotracheal tube are both in a good location. Blood gases from today showed a pH of 7.49 with a pCO2 of 39 and a pO2 of 97 and this was done on an FiO2 of 35%. No significant orotracheal secretions. The patient remains on a combination of cefepime and daptomycin. No new cultures and her last positive blood culture with staph aureus was on 08/31/2020. She is afebrile. Her white cell count is at 11.2 and she has a hemoglobin of 7.5. Renal function is stable. She is receiving enteral feeding and she is on vital high protein at the rate of 55 mL an hour which is currently at goal. She is stooling. No diarrhea and she has adequate urine and stool output. She does have a cough. She does have a gag. I am going to check his weaning parameters. I do not have intentions to extubate the patient, however I may give her a prolonged once his breathing trial and assess her ability to do some spontaneous breathing on a pressure support mode of ventilation. On and off, she has been given fentanyl for pain control. RAHEEM drains are still in place with serosanguineous output and the sternum is stable clean and intact and the dressing is dry. The cardiac rhythm is sinus tachycardia and she is on Lopressor 50 mg by mouth twice a day. She is on no pressors. The fluid balance is -1000 mL and she is taking Lasix 40 mg IV on a daily basis. Patient was reevaluated today on 09/14/2020, remains intubated and mechanically ventilated. Patient is now on tidal volume is 400 assist control rate of 20 FiO2 35% PEEP is 5 ABG showed a pO2 of 106 pCO2 of 40 0 pH of 7.50. Ration is not requiring any pressors at this point. Patient is still on treatment for MSSA bacteremia and sepsis as well as septic shock. But she has made a significant improvement overall except her neurological status remains quite an issue. Patient is encephalopathic, and not ready to be weaned or extubated. Hence the patient is going for tracheostomy and PEG tube placement today. Patient had sternal muscle flap done by plastic surgery. Patient does not follow any commands. No seizure activity no agitations. Chest x-ray continues to show improvement in her bilateral pulmonary infiltrates. No significant orotracheal secretions. Remains on cefepime and daptomycin. Last positive blood cultures for staph were on 08/31/2020. ABC is showing improvement WBC count is 12.3 hemoglobin is 8. Basic metabolic profile is normal. Patient is not requiring any further dialysis. Liver profile is normal. Patient was reevaluated today on 09/15/2020, patient remains in the ICU, intubated and mechanically ventilated. He is however now status post tracheostomy and PEG tube placement, her ventilator settings are assist control rate of 20,000 volume is 400 FiO2 35% PEEP of 5. ABG showed a pO2 of 98 pCO2 of 39 pH of 7.51, patient was transitioned from assist-control mode of mechanical ventilation to pressure support and CPAP. Patient was placed on a pressure support of 14 and CPAP of 5. He is seemed to be tolerating that mode of mechanical ventilation quite well, however she did not tolerate lower pressure support less than 14. Her tidal volumes were measured to be significantly lower. Patient remains on cefepime and daptomycin. Remains on IV fluid and she is still encephalopathic, opens eyes, does not follow any instructions whatsoever. She is awake but does not track with her eyes and she does not follow any instructions. Remains on tube feeding, not up to goal yet. Chest x-ray continues to show bilateral infil trates and some component of interstitial lung disease Objective - Vital Signs Vital signs: Vital Signs Temp 100 F H 09/15/20 12:00 Pulse 101 H 09/15/20 14:00 Resp 26 H 09/15/20 14:00 BP 111/62 09/15/20 14:00 Pulse Ox 96 09/15/20 14:00 Intake & Output 09/14/20 09/15/20 09/15/20 18:59 06:59 18:59 Intake Total 1206 576 694 Output Total 2326 555 1253 Balance -1120 21 -559 Weight 80.1 kg 79.2 kg Intake: IV 906 576 384 Cefepime 2 gm In Sodium 100 100 100 Chloride 0.9% 100 ml @ 25 mls/hr IVPB Q12HR [facility] Rx #:[id number] D5-0.45% NaCl with KCl 400 440 160 20Meq/l 1,000 ml @ 40 mls /hr IV .Q24H [facility] Rx#: [id number] DAPTOmycin 500 mg In 50 100 Sodium Chloride 0.9% 50 ml @ 100 mls/hr IVPB Q24HR [facility] Rx#:[id number] Pressure Bag 36 36 24 Sodium Chloride 0.9% 1, 20 000 ml @ 10 mls/hr IV . Q24H [facility] Rx#:[id number] Intake, IV Titration 200 Amount Potassium Chloride 10 meq 200 In Water For Injection 1 100ml.bag @ 100 mls/hr IVPB Q1H [facility] Rx#: [id number] Oral 100 90 Tube Feeding 160 Other 60 Output: Drainage 104 38 RAHEEM #1. 4 3 RAHEEM #2 100 30 RAHEEM #3 0 5 Urine 2220 555 1115 Stool 100 Estimated Blood Loss 2 Other: Voiding Method Indwelling Catheter Indwelling Catheter Indwelling Catheter # Voids 1 ABP, PAP, CO, CI - Last Documented Arterial Blood Pressure 121/46 - Exam PHYSICAL EXAMINATION: Revealed a 75-year-old female, obese, intubated HEENT:, PERRLA, EOMI, nonicteric.Moist mucous membranes tracheostomy is intact. And PEG tube is intact. CHEST EXAMINATION: Symmetrical chest expansion, fine crackles at the bases. HEART EXAMINATION normal S1 and S2, 2/6 systolic murmur thought the precordium. ABDOMEN: obese, Soft, nontender. Bowel sounds are heard. No organomegaly noted. PEG tube is noted. EXTREMITIES: Trace of bipedal edema, good pulses bilaterally. NEUROLOGIC EXAMINATION : Patient is awake, does not track with her eyes, does not follow any instructions. Psychiatric not be assessed. Skin: No rashes , however the patient has supposedly a stage II sacral decubitus ulcer. She also has an abrasion on the right forearm. - Labs CBC & Chem 7: 09/15/20 05:00 09/15/20 05:00 Labs: Abnormal Lab Results - Last 24 Hours (Table) 09/14/20 09/15/20 09/15/20 Range/Units 23:32 05:00 05:00 WBC 12.6 H (3.8-10.6) k/uL RBC 2.66 L (3.80-5.40) m/uL Hgb 7.7 L (11.4-16.0) gm/dL Hct 24.7 L (34.0-46.0) % RDW 17.2 H (11.5-15.5) % ABG pH (7.35-7.45) ABG HCO3 (21-25) mmol/L ABG Total CO2 (19-24) mmol/L ABG O2 Saturation (94-97) % BUN 26 H (7-17) mg/dL Glucose 107 H (74-99) mg/dL POC Glucose (mg/dL) 105 H (75-99) mg/dL 09/15/20 09/15/20 09/15/20 Range/Units 05:13 05:45 10:56 WBC (3.8-10.6) k/uL RBC (3.80-5.40) m/uL Hgb (11.4-16.0) gm/dL Hct (34.0-46.0) % RDW (11.5-15.5) % ABG pH 7.51 H (7.35-7.45) ABG HCO3 31 H (21-25) mmol/L ABG Total CO2 32 H (19-24) mmol/L ABG O2 Saturation 99.3 H (94-97) % BUN (7-17) mg/dL Glucose (74-99) mg/dL POC Glucose (mg/dL) 106 H 106 H (75-99) mg/dL 09/15/20 Range/Units 11:35 WBC (3.8-10.6) k/uL RBC (3.80-5.40) m/uL Hgb (11.4-16.0) gm/dL Hct (34.0-46.0) % RDW (11.5-15.5) % ABG pH (7.35-7.45) ABG HCO3 (21-25) mmol/L ABG Total CO2 (19-24) mmol/L ABG O2 Saturation (94-97) % BUN (7-17) mg/dL Glucose (74-99) mg/dL POC Glucose (mg/dL) 117 H (75-99) mg/dL Assessment and Plan Assessment: Impression: Acute hypoxic and hypercapnic respiratory failure secondary to MSSA bacteremia, sepsis, septic shock, and sternal wound infection. Postoperative day #11, status post excision of sternal wound and muscle flap. Wound VAC has been removed. Septic shock secondary to above, resolved. Acute kidney injury, resolved. Acute metabolic acidosis secondary to above, resolved. Acute diastolic congestive heart failure with bilateral pleural effusions, improved. Benign essential hypertension. History of severe cervical stenosis. Mild interstitial lung disease. 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 Status post sternal exploration and sternal wound debridement August 27. Acute metabolic encephalopathy Failure to wean mostly because of her metabolic encephalopathy. 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 Status post tracheostomy and PEG tube placement on 09/14/2020 Recommendation: Continue ventilatory support. Patient was transitioned from assist-control mode of mechanical ventilation to pressure support and CPAP. Pressure support is at 14 Continue antibiotics as per infectious disease on the case. Continue tracheostomy and PEG tube care. Nutritional support. Feeds via PEG tube today Continue GI and DVT prophylaxis. Antibiotics as per infectious disease on the case. Continue RAHEEM drains from sternum. Continue diuretics as needed. We will continue to follow. Critical care time is over 30 minutes Time with Patient: Greater than 30
--- NOTE | 2020-09-15 15:22 | P.PN ---
Subjective Progress Note Date: 09/15/20 Principal diagnosis: Malnutrition Patient doing well after PEG tube placement yesterday. She did have a low-grade fever of 100. Her white blood cell count slightly elevated at 12.6. Tolerating tube feeds at 20 mL per hour. Objective - Vital Signs Vital signs: Vital Signs Temp 100 F H 09/15/20 12:00 Pulse 101 H 09/15/20 14:00 Resp 26 H 09/15/20 14:00 BP 111/62 09/15/20 14:00 Pulse Ox 96 09/15/20 14:00 Intake & Output 09/14/20 09/15/20 09/15/20 18:59 06:59 18:59 Intake Total 1206 576 694 Output Total 2326 555 1253 Balance -1120 21 -559 Weight 80.1 kg 79.2 kg Intake: IV 906 576 384 Cefepime 2 gm In Sodium 100 100 100 Chloride 0.9% 100 ml @ 25 mls/hr IVPB Q12HR [facility] Rx #:[id number] D5-0.45% NaCl with KCl 400 440 160 20Meq/l 1,000 ml @ 40 mls /hr IV .Q24H [facility] Rx#: [id number] DAPTOmycin 500 mg In 50 100 Sodium Chloride 0.9% 50 ml @ 100 mls/hr IVPB Q24HR [facility] Rx#:[id number] Pressure Bag 36 36 24 Sodium Chloride 0.9% 1, 20 000 ml @ 10 mls/hr IV . Q24H [facility] Rx#:[id number] Intake, IV Titration 200 Amount Potassium Chloride 10 meq 200 In Water For Injection 1 100ml.bag @ 100 mls/hr IVPB Q1H [facility] Rx#: [id number] Oral 100 90 Tube Feeding 160 Other 60 Output: Drainage 104 38 RAHEEM #1. 4 3 RAHEEM #2 100 30 RAHEEM #3 0 5 Urine 2220 555 1115 Stool 100 Estimated Blood Loss 2 Other: Voiding Method Indwelling Catheter Indwelling Catheter Indwelling Catheter # Voids 1 ABP, PAP, CO, CI - Last Documented Arterial Blood Pressure 121/46 - Exam Abdomen: Soft, nondistended, mild tenderness at PEG site - Labs CBC & Chem 7: 09/15/20 05:00 09/15/20 05:00 Labs: Abnormal Lab Results - Last 24 Hours (Table) 0309/15/20 09/15/20 Range/Units 23:32 05:00 05:00 WBC 12.6 H (3.8-10.6) k/uL RBC 2.66 L (3.80-5.40) m/uL Hgb 7.7 L (11.4-16.0) gm/dL Hct 24.7 L (34.0-46.0) % RDW 17.2 H (11.5-15.5) % ABG pH (7.35-7.45) ABG HCO3 (21-25) mmol/L ABG Total CO2 (19-24) mmol/L ABG O2 Saturation (94-97) % BUN 26 H (7-17) mg/dL Glucose 107 H (74-99) mg/dL POC Glucose (mg/dL) 105 H (75-99) mg/dL 09/15/20 09/15/20 09/15/20 Range/Units 05:13 05:45 10:56 WBC (3.8-10.6) k/uL RBC (3.80-5.40) m/uL Hgb (11.4-16.0) gm/dL Hct (34.0-46.0) % RDW (11.5-15.5) % ABG pH 7.51 H (7.35-7.45) ABG HCO3 31 H (21-25) mmol/L ABG Total CO2 32 H (19-24) mmol/L ABG O2 Saturation 99.3 H (94-97) % BUN (7-17) mg/dL Glucose (74-99) mg/dL POC Glucose (mg/dL) 106 H 106 H (75-99) mg/dL 09/15/20 Range/Units 11:35 WBC (3.8-10.6) k/uL RBC (3.80-5.40) m/uL Hgb (11.4-16.0) gm/dL Hct (34.0-46.0) % RDW (11.5-15.5) % ABG pH (7.35-7.45) ABG HCO3 (21-25) mmol/L ABG Total CO2 (19-24) mmol/L ABG O2 Saturation (94-97) % BUN (7-17) mg/dL Glucose (74-99) mg/dL POC Glucose (mg/dL) 117 H (75-99) mg/dL Assessment and Plan Plan: Patient doing well at this time. Continue gradually increasing tube feeds to goal of 40 mL. Will follow.
--- NOTE | 2020-09-15 16:22 | PN ---
PROGRESS NOTE Patient is seen for followup for acute kidney injury. Her renal function has improved significantly. The patient was also severely volume-overloaded. Volume status has improved as well. Currently maintained on IV Lasix 40 mg once a day. Patient is status post trach and PEG. She has an indwelling Yu catheter with good urine output of close to 3 liters for 24 hours. PHYSICAL EXAMINATION: Patient is sedated. This morning blood pressure was 101/52, heart rate 90 per minute, temperature 99.2. Later on temperature was up at 100 degrees Fahrenheit. EXAMINATION OF THE HEART: S1 and S2. EXAMINATION OF LUNGS: Bilateral breath sounds are heard. ABDOMEN: Soft. Examination of lower extremities shows much improved edema. EYEGLASS MAKER exam cannot be assessed. LABS: Sodium 142, potassium 4.0, chloride 105, BUN 26, creatinine 0.85, hemoglobin 7.7 g/dL. ASSESSMENT: 1. Acute kidney injury, acute tubular necrosis, resolved. 2. Severe volume overload, currently improved. 3. Methicillin-susceptible Staphylococcus aeruginosa bacteremia, now resolved. 4. Infected surgical wound after coronary artery bypass surgery, status post muscle flap. 5. Hypoxic respiratory failure, currently vent-dependent, status post trach and PEG. 6. Septic shock, now resolved. PLAN: Continue with once-a-day dosing of Lasix for now. Continue to monitor electrolytes and renal function. MMODL / IJN: [id number] /
[2020-09-15 17:20] LABS: Glucose,Whole Blood 115 mg/dL (75-99)
[2020-09-15] MEDS ORDERED: IPRATROPIUM-ALBUTEROL 3 ML NEB INHALATION PRN (20:38)
[2020-09-15] MEDS: MELATONIN 3 MG TABLET PO SCH (21:17)
--- NOTE | 2020-09-15 22:43 | PN ---
PROGRESS NOTE DATE OF SERVICE: 09/15/2020 REASON FOR FOLLOWUP: MSSA bacteremia secondary to osteomyelitis. INTERVAL HISTORY: The patient is currently afebrile. The patient is status post trach and PEG. Mentation remains to be an issue. The patient is hemodynamically stable, not on pressor support. FiO2 is currently at 35%. No significant purulent secretions through the ET or any worsening diarrhea reported by the nursing staff. PHYSICAL EXAMINATION: Blood pressure 150/57, pulse 80, temperature 99.4. She is 97% on 35% FiO2. General description is an elderly female lying in bed in no distress. Respiratory system: Unlabored breathing. Decreased breath sounds in the bases. No wheeze. Heart S1, S2. Regular rate and rhythm. Abdomen soft, no tenderness. LAB: Repeat culture has been negative. White count 12.6, creatinine 0.85. DIAGNOSTIC IMPRESSION AND PLAN: Patient with sternal osteomyelitis with MSSA bacteremia, status post debridement with persistent respiratory failure to be extubated status post trach and PEG. Currently covered with cefepime and dapto to continue with the culture negative, antibiotic will be slowly weaned off and continue supportive care. MMODL / IJN: [id number] /
[2020-09-15 23:48] LABS: Glucose,Whole Blood 115 mg/dL (75-99)
[2020-09-16 04:42] LABS: Anisocytosis Slight; HCT 24.2 % (34.0-46.0); HGB 7.5 gm/dL (11.4-16.0); Hypochromasia Marked; MCH 28.6 pg (25.0-35.0); MCV 92.3 fL (80.0-100.0); Mean Platelet Volume 9.5; Platelet Count 389 k/uL (150-450); Poikilocytosis Slight; RBC 2.62 m/uL (3.80-5.40); RDW 17.3 % (11.5-15.5); WBC 14.4 k/uL (3.8-10.6)
[2020-09-16 05:06] LABS: ABG Base Excess 7.8 mmol/L; ABG HCO3 31 mmol/L (21-25); ABG Oxygen Saturation 99.3 % (94-97); ABG PCO2 40 mmHg (35-45); ABG PO2 97 mmHg (83-108); ABG TCO2 32 mmol/L (19-24)
[2020-09-16 05:14] LABS: Calcium 9.3 mg/dL (8.4-10.2); Potassium 3.4 mmol/L (3.5-5.1)
[2020-09-16 05:31] LABS: Glucose,Whole Blood 141 mg/dL (75-99)
[2020-09-16 05:50] LABS: Allen Test Performed? no
[2020-09-16] MEDS: INSULIN ASPART (NovoLOG) 100 UNIT/ML VIAL SQ SCH ×3 (05:56→17:46)
[2020-09-16] MEDS: ACETAMINOPHEN TAB 325 MG TAB PO PRN ×2 (06:19→16:46)
[2020-09-16] MEDS: POTASSIUM BICARBONATE/CIT AC 20 MEQ TABLET.EFF NG-TUBE SCH ×2 (06:19→08:19)
[2020-09-16] MEDS: IPRATROPIUM-ALBUTEROL 3 ML NEB INHALATION SCH ×4 (07:49→20:23)
[2020-09-16] MEDS: HEPARIN SODIUM,PORCINE 5,000 UNIT/ML 1 ML VIAL SQ SCH ×2 (08:18→15:40)
[2020-09-16] MEDS: DAPTOmycin 500 MG in SODIUM CHLORIDE 0.9% 50 ML IVPB SCH (08:21)
[2020-09-16] MEDS: CLOPIDOGREL 75 MG TAB PO SCH (08:29)
[2020-09-16] MEDS: CEFEPIME 2 GM in SODIUM CHLORIDE 0.9% 100 ML IVPB SCH ×2 (08:29→20:34)
[2020-09-16] MEDS: ASPIRIN 325 MG TAB PO SCH (08:29)
[2020-09-16] MEDS: ATORVASTATIN 40 MG TAB PEG/G-TUBE SCH (08:29)
[2020-09-16] MEDS: CHLORHEXIDINE GLUCONATE 15 ML CUP MUCOUS MEM SCH ×2 (08:29→20:35)
[2020-09-16] MEDS: PANTOPRAZOLE 40 MG/10 ML VIAL IVP SCH (08:29)
[2020-09-16] MEDS: METOPROLOL TARTRATE 25 MG TAB PO SCH ×2 (08:29→20:34)
[2020-09-16] MEDS: DRY MOUTH SPRAY 44.3 SPRAY/44.3 ML SPRAY MUCOUS MEM SCH ×4 (08:30→20:59)
[2020-09-16] MEDS: FUROSEMIDE 10 MG/ML 4 ML VIAL IV SCH (08:33)
--- NOTE | 2020-09-16 08:40 | XR ---
EXAMINATION TYPE: XR chest 1V portable DATE OF EXAM: 09/16/2020 COMPARISON: Chest x-ray 09/15/2020 HISTORY: Postop, abnormal chest x-ray TECHNIQUE: Single frontal view of the chest is obtained. FINDINGS: There is no significant interval change. Patient is rotated. Postop changes are again seen . Bilateral pleural-parenchymal changes are not significantly changed. PICC line is stable. There are indwelling drains. No evident pneumothorax or sizable effusion. Cardiac mediastinal silhouette is un changed. IMPRESSION: Correlate for pneumonia, edema, ARDS.
--- NOTE | 2020-09-16 11:15 | P.PN ---
Subjective Progress Note Date: 09/16/20 Principal diagnosis: Shortness of breath, acute diastolic heart failure, bilateral pleural effusion, lactic acidosis, hypercapnic respiratory failure requiring BiPAP followed by nj chanical ventilation, deep sternal wound infection with MSSA, acute kidney injury, acute hyperkalemia, hyponatremia, acute transaminitis, hypotension requiring vasopressors use, acute anemia. Past medical history significant for coronary artery disease with left main stenosis status post 2 vessel CABG on 08/10/2020 with expected postoperative acute blood loss anemia, hypotension, and urinary retention as well as candidal stomatititus, hyponatremia, pulmonary fibrosis, asthma, hypertension, hyperlipidemia, previous tobacco dependence, obesity, osteoarthritis, cervical stenosis post anterior cervical disc decompression, discectomy and fusion, TIA as a child, family history of premature coronary artery disease. Paroxysmal Afib with RVR. POD #19 sternal exploration with sternal debridement. POD #13 removal of cable and partial resection of the manubrium as well as partial sternectomy by Dr. Sethi, right pectoralis major myocutaneous flap, left pectoralis major myocutaneous flap by Dr. Whittaker. POD #2 status post tracheostomy tube placement by Dr. Flores Sethi. POD #2 EGD with PEG tube placement performed by Dr. Bryan Peña. The patient is seen in follow-up today 09/16/2020 at her bedside in the intensive care unit. Neurologically the patient remains awake with her eyes open, no tracking noted. No movement to her 4 extremities with verbal stimuli. She does withdraw from painful stimuli to all 4 extremities. She is not shaking her head yes or no to questions. Sedation has been off for several days. Tracheostomy tube remains midline and intact. Current mechanical ventilator settings are assist control 20, VC +400/0.80, FiO2 35% and PEEP of 5. Oxygen saturations on current mechanical ventilator settings are 97%. The patient did undergo a CPAP trial yesterday and tolerated it from around 9 AM to 4 PM. ABG results this morning show a pH of 7.50, pCO2 40, oxygen saturation 97%, HCO3 31, oxygen saturation 99.3 and base excess 7.8. Left upper quadrant PEG tube remains intact with continuous tube feedings vital high-protein infusing at goal rate of 40 mL per hour with automatic water flushes 30 mL every 4 hours. Her T- max temperature in the last 24 hours was 100.6F, she remains on cefepime and daptomycin for antibiotic coverage managed by infectious disease. Laboratory results this morning show a WBC count 14.4, hemoglobin 7.5, hematocrit 24.2, platelets 389, sodium 141, potassium 3.4, BUN 26, and creatinine 0.81. Optifoam dressing remains clean, dry and intact to her coccyx area. She remains hemodynamically stable and is currently on no inotropic or pressor support. Bedside telemetry showing sinus tachycardia heart rate 100 BPM. Fecal man agement system remains in place with liquid brown stool. Objective - Vital Signs Vital signs: Vital Signs Temp 99.1 F 09/16/20 04:00 Pulse 110 H 09/16/20 07:51 Resp 21 09/16/20 07:00 BP 126/62 09/16/20 07:00 Pulse Ox 98 09/16/20 07:00 Intake & Output 09/15/20 09/16/20 09/16/20 18:59 06:59 18:59 Intake Total 936 796 63 Output Total 1518 590 60 Balance -582 206 3 Weight 81.3 kg Intake: IV 476 316 23 Cefepime 2 gm In Sodium 100 100 Chloride 0.9% 100 ml @ 25 mls/hr IVPB Q12HR [facility] Rx #:[id number] D5-0.45% NaCl with KCl 240 180 20 20Meq/l 1,000 ml @ 20 mls /hr IV .Q24H [facility] Rx#: [id number] DAPTOmycin 500 mg In 100 Sodium Chloride 0.9% 50 ml @ 100 mls/hr IVPB Q24HR [facility] Rx#:[id number] Pressure Bag 36 36 3 Oral 90 Tube Feeding 280 390 40 Other 90 90 Output: Drainage 38 25 RAHEEM #1. 3 0 RAHEEM #2 30 25 RAHEEM #3 5 0 Urine 1380 565 60 Stool 100 Other: Voiding Method Indwelling Catheter Indwelling Catheter # Voids 1 1 ABP, PAP, CO, CI - Last Documented Arterial Blood Pressure 137/52 - Constitutional General appearance: Present: no acute distress, obese - EENT Eyes: Present: PERRLA, poor dentition, normal appearance. Absent: scleral icterus - Neck Details: Neck is supple, no JVD. Tracheostomy tube is midline and in place. Neck: Absent: lymphadenopathy - Respiratory Details: Lung sounds with few scattered rhonchi throughout, diminished bilateral bases. No wheezes or crackles. Respirations are symmetrical and nonlabored with mechanical ventilator support. Current mechanical ventilator settings are assist control 20, VC +400/0.80, FiO2 35% and PEEP of 5. Oxygen saturation 97% on current mechanical ventilator settings. ABG results this morning pH 7.50, pCO2 40, pO2 97, HCO3 31, oxygen saturation 99.3 and base excess 7.8. #8 fenestrated Shiley trach is midline and intact. - Cardiovascular Details: Regular rhythm and tachycardic rate. S1 and S2 present, negative for S3, gallop or murmur. Heart hugger is in place. Bedside telemetry showing sinus tachycardia heart rate 100 BPM. Generalized +1 edema. Knee-high ANGEL hose and sequential compression devices in place to bilateral lower extremities. Right arm PICC line in place and functioning. Right brachial arterial line in place and functioning. - Gastrointestinal Gastrointestinal Comment(s): Abdomen is soft, nontender and nondistended. Active bowel sounds present in all 4 abdominal quadrants. No guarding or rigidity. No organomegaly appreciated. Left upper quadrant abdomen PEG tube in place. Continuous tube feedings per PEG tube vital high-protein infusing at goal rate of 40 mL per hour with automatic water flushes 30 mL every 4 hours. Fecal management system in place with liquid brown stool. - Genitourinary Genitourinary Comment(s): Yu catheter for accurate I&O. Draining clear yellow urine. 380 mL of urine output in the last 8 hours. - Integumentary Integumentary Comment(s): Skin is warm and dry. No clubbing or cyanosis is present. Scattered ecchymosis to her bilateral upper extremities. Optifoam dressing clean dry and in place to her coccyx area. - Neurologic Neurologic Comment(s): Awake and alert with her eyes open. No tracking. The patient is not following any verbal commands, or moving her bilateral upper and lower extremities with verbal stimuli. He does withdraw from painful stimuli to all 4 extremities. - Musculoskeletal Musculoskeletal Comment(s): Profound generalized weakness. Musculoskeletal: Present: generalized weakness - Psychiatric Psychiatric Comment(s): Awake with her eyes open. Unable to accurately assess orientation at this time. - Allied health notes Allied health notes reviewed: nursing - Labs CBC & Chem 7: 09/16/20 04:30 09/16/20 04:30 Labs: Abnormal Lab Results - Last 24 Hours (Table) 09/15/20 09/15/20 09/15/20 Range/Units 10:56 11:35 17:18 WBC (3.8-10.6) k/uL RBC (3.80-5.40) m/uL Hgb (11.4-16.0) gm/dL Hct (34.0-46.0) % RDW (11.5-15.5) % ABG pH (7.35-7.45) ABG HCO3 (21-25) mmol/L ABG Total CO2 (19-24) mmol/L ABG O2 Saturation (94-97) % Potassium (3.5-5.1) mmol/L BUN (7-17) mg/dL Glucose (74-99) mg/dL POC Glucose (mg/dL) 106 H 117 H 115 H (75-99) mg/dL 09/15/20 09/16/20 09/16/20 Range/Units 23:45 04:30 04:30 WBC 14.4 H (3.8-10.6) k/uL RBC 2.62 L (3.80-5.40) m/uL Hgb 7.5 L (11.4-16.0) gm/dL Hct 24.2 L (34.0-46.0) % RDW 17.3 H (11.5-15.5) % ABG pH (7.35-7.45) ABG HCO3 (21-25) mmol/L ABG Total CO2 (19-24) mmol/L ABG O2 Saturation (94-97) % Potassium 3.4 L (3.5-5.1) mmol/L BUN 26 H (7-17) mg/dL Glucose 128 H (74-99) mg/dL POC Glucose (mg/dL) 115 H (75-99) mg/dL 09/16/20 09/16/20 Range/Units 05:05 05:29 WBC (3.8-10.6) k/uL RBC (3.80-5.40) m/uL Hgb (11.4-16.0) gm/dL Hct (34.0-46.0) % RDW (11.5-15.5) % ABG pH 7.50 H (7.35-7.45) ABG HCO3 31 H (21-25) mmol/L ABG Total CO2 32 H (19-24) mmol/L ABG O2 Saturation 99.3 H (94-97) % Potassium (3.5-5.1) mmol/L BUN (7-17) mg/dL Glucose (74-99) mg/dL POC Glucose (mg/dL) 141 H (75-99) mg/dL - Imaging and Cardiology Chest x-ray: report reviewed, image reviewed Assessment and Plan Assessment: 1. Shortness of breath, acute diastolic heart failure, EF 55-60% on current TTE, bilateral pleural effusions 2. Lactic acidosis, septic shock, blood cultures positive for MSSA 3. Hypercapnic, hypoxic respiratory failure requiring BiPAP, with subsequent intubation and mechanical ventilation, status post tracheostomy placement 4. Open sternal wound, surgically created, deep sternal wound infection with MSSA, S/P surgical exploration and debridement with daily dressing changes, status post removal of cable and partial resection of the manubrium as well as partial sternectomy by Dr. Sethi, right pectoralis major myocutaneous flap, left pectoralis major myocutaneous flap by Dr. Whittaker. 5. Leukocytosis with bandemia, bandemia , WBC trending down 6. Acute kidney injury, metabolic acidosis, metabolic acidosis resolved, kidney function returning to normal after receiving dialysis 7. Acute hyperkalemia, resolved 8. Acute transaminitis secondary to hypoperfusion, resolved 9. History of hypertension, hypotensive this admission requiring vasopressors 10. Acute anemia, post transfusion PRBCs, on [facility] 11. Coronary artery disease with left main stenosis status post 2 vessel CABG on 08/10/2020 with expected postoperative acute blood loss anemia, hypotension, and urinary retention as well as candidal stomatititus 12. Hyponatremia, resolved 13. Pulmonary fibrosis, asthma 14. Hyperlipidemia, treated 15. Previous tobacco dependence 16. Obesity 17. Paroxysmal afib w/ RVR, atrial flutter, status post exclusion of the left atrial appendage using a 35 mm AtriClip, currently sinus tachycardia rhythm 18. 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 Malnutrition, status post EGD with PEG tube placement Plan: 1. Ventilator management per pulmonary/critical care medicine. Weaning trials managed by pulmonary/critical care medicine. Tolerated a CPAP trial yesterday from 9 AM to around 4 PM. 2. Nephrology following, avoid nephrotoxins, diuretic management per nephrology recommendations. Lasix 40 mg IV daily. 3. Infectious disease following, remains on cefepime and daptomycin for antibiotic coverage. Most recent blood cultures and sputum cultures negative for growth. 4. Continue aspirin, Plavix, , statin and beta sisi. We will increase metoprolol tartrate as tolerated. 5. No anticoagulation at this time. 6. Will continue to monitor daily labs, chest x-rays, and ABGs. Replace electrolytes per protocol. 7. 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 Remains with profound generalized weakness. 8. GI/DVT prophylaxis. 9. Continue vital high-protein tube feedings per dietary recommendations with goal rate of 40 mL per hour. 10. Patient's daughter Roberta updated on her care per phone. 11. Continue Lipitor 40 mg per PEG tube daily. Monitor liver enzymes. 12. Discontinue IV fluids. 13. More recommendations to follow based on patient's clinical course. Time with Patient: Greater than 30
[2020-09-16 11:59] LABS: Glucose,Whole Blood 109 mg/dL (75-99)
[2020-09-16] MEDS: ASCORBIC ACID 500 MG TAB PO SCH (11:59)
[2020-09-16] MEDS: FERROUS SULFATE ORAL ELIXIR 300 MG/5 ML CUP PO SCH (11:59)
--- NOTE | 2020-09-16 12:30 | P.PN ---
Subjective Progress Note Date: 09/16/20 This is a 75-year-old female with history of hypertension, hyperlipidemia, pulmonary fibrosis, status post bypass surgery with sternal infection and dehiscence for which she had surgery. Patient is also mentally not responding well. She is moving activities but doesn't respond appropriately to verbal sti muli. She is also on a respirator and going for tracheostomy and PEG tube. She still seemed to be awake but doesn't follow commands. Movements of the legs are noted. Cardiac standpoint we'll continue current medical therapy. She may need a long-term care 09/15/2020: This patient with history of hypertension, hyperlipidemia and pulmonary fibrosis status post CABG. Patient developed a sternal infection requiring surgery. Patient also mentally not responding well and appropriately. Patient had a tracheostomy yesterday. Patient appears to be awake and looking at you. Doesn't follow commands. Still moves extremities. She is being planned to be more prone to long-term care. Continue current medical therapy. We'll follow when necessary. Patient has been maintaining sinus rhythm. New 09/16/2020: This patient with history of bypass surgery, sternal infection status post pectoral flap placement, respiratory failure, renal failure and multiple other medical issues including anemia. Patient is on ventilator with tracheostomy. Patient is maintaining sinus rhythm and sinus tachycardia. Hemodynamically stable. Neurologically no improvement. Patient seemed to be awake but doesn't follow a track. She doesn't respond to verbal stimuli. Seemed to be moving all 4 extremities. Patient will be continued on current medical therapy including aspirin, Plavix, beta blockers. From Cardec standpoint we'll continue to follow as needed. Patient will be constricted for long-term care. Multiple specialists are following including nephrology ID and also pulmonary along with cardiac surgeons Objective - Vital Signs Vital signs: Vital Signs Temp 99.5 F 09/16/20 08:00 Pulse 100 09/16/20 11:50 Resp 30 H 09/16/20 11:00 BP 109/60 09/16/20 11:00 Pulse Ox 98 09/16/20 11:00 Intake & Output 09/15/20 09/16/20 09/16/20 18:59 06:59 18:59 Intake Total 936 796 495 Output Total 3160 590 635 Balance -582 206 -140 Weight 81.3 kg Intake: IV 476 316 205 Cefepime 2 gm In Sodium 100 100 100 Chloride 0.9% 100 ml @ 25 mls/hr IVPB Q12HR [facility] Rx #:[id number] D5-0.45% NaCl with KCl 240 180 40 20Meq/l 1,000 ml @ 20 mls /hr IV .Q24H [facility] Rx#: [id number] DAPTOmycin 500 mg In 100 50 Sodium Chloride 0.9% 50 ml @ 100 mls/hr IVPB Q24HR [facility] Rx#:[id number] Pressure Bag 36 36 15 Oral 90 Tube Feeding 280 390 200 Other 90 90 90 Output: Drainage 38 25 50 RAHEEM #1. 3 0 0 RAHEEM #2 30 25 50 RAHEEM #3 5 0 0 Urine 1380 565 585 Stool 100 Other: Voiding Method Indwelling Catheter Indwelling Catheter Indwelling Catheter # Voids 1 1 ABP, PAP, CO, CI - Last Documented Arterial Blood Pressure 120/47 - Exam GENERAL EXAM: Patient is status post a tracheostomy and PEG tube HEENT: Normocephalic. NECK: No masses, no nuchal rigidity. CHEST: No chest wall deformity. LUNGS: Equal air entry with no crackles or wheeze. HEART: S1 and S2 normal with no audible mumurs or gallops. Regular rhythm, femorals equal on both sides.. ABDOMEN: No hepatosplenomegaly, normal bowel sounds, no guarding or rigidity. SKIN: No rashes CENTRAL NERVOUS SYSTEM: Awake but doesn't respond appropriately to verbal stimuli. Moving extremities EXTREMITIES: No cyanosis, clubbing or edema. - Labs CBC & Chem 7: 09/16/20 04:30 09/16/20 04:30 Labs: Abnormal Lab Results - Last 24 Hours (Table) 09/15/20 09/15/20 09/16/20 Range/Units 17:18 23:45 04:30 WBC 14.4 H (3.8-10.6) k/uL RBC 2.62 L (3.80-5.40) m/uL Hgb 7.5 L (11.4-16.0) gm/dL Hct 24.2 L (34.0-46.0) % RDW 17.3 H (11.5-15.5) % ABG pH (7.35-7.45) ABG HCO3 (21-25) mmol/L ABG Total CO2 (19-24) mmol/L ABG O2 Saturation (94-97) % Potassium (3.5-5.1) mmol/L BUN (7-17) mg/dL Glucose (74-99) mg/dL POC Glucose (mg/dL) 115 H 115 H (75-99) mg/dL 09/16/20 09/16/20 09/16/20 Range/Units 04:30 05:05 05:29 WBC (3.8-10.6) k/uL RBC (3.80-5.40) m/uL Hgb (11.4-16.0) gm/dL Hct (34.0-46.0) % RDW (11.5-15.5) % ABG pH 7.50 H (7.35-7.45) ABG HCO3 31 H (21-25) mmol/L ABG Total CO2 32 H (19-24) mmol/L ABG O2 Saturation 99.3 H (94-97) % Potassium 3.4 L (3.5-5.1) mmol/L BUN 26 H (7-17) mg/dL Glucose 128 H (74-99) mg/dL POC Glucose (mg/dL) 141 H (75-99) mg/dL 09/16/20 Range/Units 11:56 WBC (3.8-10.6) k/uL RBC (3.80-5.40) m/uL Hgb (11.4-16.0) gm/dL Hct (34.0-46.0) % RDW (11.5-15.5) % ABG pH (7.35-7.45) ABG HCO3 (21-25) mmol/L ABG Total CO2 (19-24) mmol/L ABG O2 Saturation (94-97) % Potassium (3.5-5.1) mmol/L BUN (7-17) mg/dL Glucose (74-99) mg/dL POC Glucose (mg/dL) 109 H (75-99) mg/dL Assessment and Plan (1) CAD (coronary artery disease) Current Visit: Yes Status: Acute Code(s): I25.10 - ATHSCL HEART DISEASE OF [place] CORONARY ARTERY W/O ANG PCTRS SNOMED Code(s): 61224444 (2) CHF (congestive heart failure) Current Visit: Yes Status: Acute Code(s): I50.9 - HEART FAILURE, UNSPECIFIED SNOMED Code(s): 68635455 (3) Hyponatremia Current Visit: Yes Status: Acute Code(s): E87.1 - HYPO-OSMOLALITY AND H YPONATREMIA SNOMED Code(s): 07823454 (4) Sternal wound infection Current Visit: Yes Status: Acute Code(s): S21.101A - UNSP OPN WND R FRNT WL OF THORAX W/O PENET THOR CAVITY, INIT; L08.9 - LOCAL INFECTION OF THE SKIN AND SUBCUTANEOUS TISSUE, UNSP SNOMED Code(s): 34528624 (5) Status post aorto-coronary artery bypass graft Current Visit: Yes Status: Acute Code(s): Z95.1 - PRESENCE OF AORTOCORONARY BYPASS GRAFT SNOMED Code(s): 563984069 Plan: No significant interval change. Patient still remains alert but unresponsive. Hemodynamically stable. We'll follow as needed
--- NOTE | 2020-09-16 13:10 | P.PN ---
Subjective Progress Note Date: 09/16/20 HISTORY OF PRESENT ILLNESS This is a 75-year-old female patient of Dr. Rich Avila, Dr. Sloan and Dr. Guadalupe. She has a past medical history significant for hypertension, hype rlipidemia, pulmonary fibrosis, asthma, obesity, remote history of tobacco dependence with smoking 32 years ago, osteoarthritis, cervical stenosis post anterior cervical decompression, discectomy and fusion, TIA as a child at age 11 and family history of premature coronary artery disease with her father being diagnosed in his early 50s. Recently, the patient has been experiencing episodes of shortness of breath over the past 6 months with just minimal activity. She also complained of some lower extremity swelling which did resolve with some diuresis. she underwent a stress test which showed anterior wall ischemia with small reversible defect. a 2-D echocardiogram which showed mild aortic valve insufficiency, mild mitral valve regurgitation, mild tricuspid valve regurgitation and left ventricular function to be normal with an ejection fraction of 55%. Subsequently she underwent an elective heart catheterization on 07/27/2020 which demonstrated a left main stenosis with QING with a calculation of 2.6 mm, a 40% stenosis to her mid left anterior descending coronary artery and a 30% stenosis to her right coronary artery. Due to the patient's symptoms and findings on her heart catheterization of left main stenosis a consult was placed to Dr. Sethi from cardiothoracic surgery for further evaluation and treatment recommendations. During her preoperative workup her serum sodium level was found to be 120 and was admitted prior to surgery for treatment of hyponatremia. Last admission On 08/06/2020-08/19/20 the patient was admitted to the hospital for treatment of her hyponatremia, and once her hyponatremia was resolved on 08/10/2020, asubsequently taken to the operating room where Dr. Sethi performed a double vessel coronary artery bypass grafting surgery using the left internal mammary artery to left anterior setting coronary artery, a reverse greater saphenous vein graft from the aorta to the first obtuse marginal coronary artery, endoscopic harvesting of the left greater saphenous vein from the groin Upon completion of the surgery the patient was transferred to the intensive care unit where she was recovered, monitored hemodynamically and where she progressed cardiac rehabilitation phase Her oxygen was titrated down, she continued to work with physical/occupational therapy and cardiac rehabilitation, she was tolerating an oral diet, her pain was well controlled without narcotics and she was ready to be discharged home with [facility] care on postoperative day #9. Did not require home O2 on last admission however she required new medication changes including diuretics during that last admission. Patient comes in in worsening shortness of breath anasarca, no chest pain, has BARKER, edma without leg pain new medications from last visit was compliant, requiring lipitor 75bid, tolvaptan. meotprolol 75 bid plavix, lasix 40 mg daily losartain 25 asa 325, ferrous sulfate and fluconazole. patient comes in now for CHF, anarsarc ely pleural effusion, consult with dr Sethi. and cardiology, if okay will be cardiothoracic surgeon can also perform the thoracentesis, however with hypoxemia, also have requested Dr. Gamboa's services. Patient has a hemoglobin of 7.0 on and 3, platelet count of 305, hemoglobin right to admission was 8.0 denies any Hemoccult stools, creatinine was 1.60 from a previous of 0.9 blood pressure is in the low 90s systolic, pulse ox, 90 on 4 L nasal cannula, patient was not discharged with home O2 during her last admission 08/24: A-Team was called for mental status changes. Patient was found to have a blood pressure 99/65, heart rate of 85 and pulse ox of 96% on a nonrebreather with respiratory rate of 32. Patient was transferred to the ICU. She was started on vancomycin and cefepime. Patient has been seen by cardiology with plan to continue vasopressor support, patient may need pleurocentesis. Stat echocardiogram was done to rule out pericardial effusion or tamponade. Patient has been seen by nephrology for acute kidney injury secondary to ATN secondary to hypotension and cardiorenal syndrome. Patient is currently on bicarb drip, status post Lasix 80 mg IV once. Renal replacement therapy to be initiated immediately. Vascular consult in place for a dialysis catheter placement and start hemodialysis today with second treatment tomorrow. Sternal wound was producing thick yellowish brown fluid, was opened approximately 2 cm and deep culture was taken, packed and covered with 4 x 4 dressing. She is requiring vasopressors. She is hypothermic and warming blanket is in place.Patient had minimal output yesterday and none today. She is status post 2.5 L of fluids. 08/25 patient was examined in the ICU. She was able to maintain oxygenation on BiPAP overnight switch to high flow 15 m this morning. Patient did have episodes of agitation last night and was started on Seroquel. She did receive a dose of Seroquel prior to admission and was found to be resting comfortably. Patient is off pressors and bicarbonate drip and metabolic acidosis seemed to have cleared off. On evaluation of patient's lab, WBC is 14.3, hemoglobin 6.5 platelet 208 ABG this morning has a pH of 7.47 CO2 74. Bicarb 29. Sodium has improved to 126 chloride 96 BUN 43 creatinine 2.79 lactic acid has improved to 2.9 calcium 7 liver enzymes elevated AST at 2874 ALT 1469 alkaline phosphatase 192 CRP 356 BNP 13,000 UA does suggest some infection with WBC of 88 hyaline casts 33 protein 2+ urine blood trace nitrite negative leukocyte Estrace negative. Wound cultures positive for presumptive staph aureus. Patient's blood culture from yesterday are positive with presumptive staph aureus. Repeat blood cultures ordered. Patient received 1 unit of PRBCs for low hemoglobin. Urine output has improved to 20-40 mL's per hour. Patient did receive a dose of DDAVP for hyponatremia. Normal saline is running at 50 mL per hour. Did receive hemodialysis today with 2 L ultrafiltration. Patient was also noted to be in A. fib with RVR intermittently and her dose of Lopressor was increased to 25 mg every 8 hours. Continue daptomycin and cefepime for antibiotic coverage. Monitor patient's for QTC prolongation well on Seroquel. Patient has significant dehiscence of wound and may need I&D 08/26: She was intubated and placed on mechanical ventilation overnight with pulse ox of 96%, tidal volume 450, FiO2 50, PEEP of 5. Temperature max last evening was 101.2. Heart rate 82, blood pressure 120/53. WBC 9.6, hemoglobin 10.8, platelet count 159. Sodium 134, potassium 4.7, chloride 100, CO2 25, BUN 14 creatinine 1.83. Blood sugars running between 100 2753. Total bilirubin 3.3, AST 1067, ALT 993, alkaline phosphatase 251. Magnesium 2.1. Patient is on vasopressors. take up operator atrial flutter alternating with sinus rhythm. Patient is also on propofol and Seroquel discontinued. Thoracic surgery is possible taking her to or for I&D and considering wound VAC. Patient is on Plavix. Echocardiogram reveals normal LV function and mild aortic stenosis. Patient is currently on daptomycin and cefepime per Dr. Mcintyre. Urine output remains low at 15-20 mL per hour. Should she is scheduled for third hemodialysis treatment today. Patient is scheduled for Lasix 80 mg IV this afternoon. 08/27 she remains in the ICU, intubated and mechanically ventilated. Patient is going to the OR for debridement today. Patient remains intubated on 50% FiO2 and PEEP of 5, assist control rate of 20volume 450. Continues to require Levophed at 11mcg/ hr . Blood clots and culture positive for MSSA. Urine output is 50-60 mL per hour. Patient continues to be on sedation from propofol at 50 max per KG permanent. IV fluids at KVO. Patient continues to have good urine output after a dose of 80 mg of IV Lasix today. Vision tolerated 2.5 L ultrafiltration yesterday and is started on hemodialysis on August 24. No holiday sedation today. Plan to continue Lasix 80 IV once daily and holding hemodialysis. Anticoagulation held for debridement. 08/28 patient remains in the ICU. Did have sternal Exploration and debridement yesterday remains sedated on propofol. Patient continues to have high temp of 101.6, to 233 tachycardic 111 blood pressure 106/51 oxygen saturation 95% on 50% FiO2. Labs suggest a leukocytosis of 24.3 hemoglobin stable at 10.7 platelet count has dipped dropped to 78, he really suggest a pH of 7.53 pCO2 30 PaO2 57, chloride of 110 potassium 3.5 and anion gap of 6 BUN 46 creatinine 0.9 calcium 7.8 ALT 3:15 alkaline phosphatase 312 AST 112 blood cultures from 08/26 positive for staph aureus. Urine output 1.2 L in 24 hours Repeat blood cultures sent today. Patient continues to be normal sinus rhythm not currently on any anticoagulation at the possibility of going for another debridement. Patient's continues to be on levo fed and still stays intubated. Continue IV Lasix. Patient initiated on IV Lasix 08/29: Patient remain in the ICU, remain on mechanical ventilation, sternal exploration and debridement was done and still have packing area within open wound at this point. Oxygenation is better patient is not 3 to be off vent at this point. Her urine output has been good and hemodynamically stable. 08/30: Patient still on mechanical ventilation, his sternum 1 and was changed today still have significant amount of infection and pus was packed still open. Patient remain on nafcillin and Moni mycin. Still having positive blood culture. 08/31: Patient is more awake today doing trial of weaning parameter try to get patient off the respirator, her incision and infection along the sternum is no change still have packing on still on IV antibiotics. Hemodynamically is more stable. 09/01: Patient evaluated in the ICU, continues on mechanical ventilation. Wound packing was removed yesterday, purulence was noted on the packing, deep near the heart and purulence around the heart. She continues on IV clindamycin and nafcillin. Patient was taken off sedation yesterday for a trial of weaning, but she became hypertensive and tachypneic so she is placed back on sedation. 09/02: Patient remains intubated and on mechanical ventilation with tidal volume 400, FiO2 of 50% and PEEP of 5. Patient has been off sedation since Monday. She is receiving OG tube feedings. She appears to be opening meaning her eyes and can shake her head. Otherwise not moving extremities. She has a wound VAC in place to the sternal wound. Wound cultures and blood culture positive for MSSA. She is scheduled for sternal wound excision and debridement with flap reconstruction and graft tomorrow with Dr. Whittaker. Repeat blood work reveals WBC of 13.6, hemoglobin 8.5. BUN 66 and creatinine 1.62, potassium 3.2 and has been replaced, blood sugars running between 107 and 132. Because renal functioning is worsening, nephrology has recommended holding nafcillin. Repeat chest x-ray reveals correlate for pneumonia, edema, ARDS. 09/03: She remains in the intensive care unit intubated and on mechanical ventilation with tidal volume 400, FiO2 40, PEEP of 5. Patient is awake with eyes open. She nodded her head no to having pain. She had a temperature this morning of 101.6 at 6 AM. Antibiotics are currently in the form of Kefzol. Repeat chest x-ray was done this morning and report is pending. Patient has been seen by neurology and doubt critical illness neuropathy. CAT scan of the brain and cervical spine done that showed no acute fracture or dislocation in the cervical spine. No acute intracranial hemorrhage, mass effect or midline shift. Ongoing airspace disease. Cardiology has recommended reinitiating statin. Temperature max 101.6, heart rate 101, blood pressure 117/52, pulse ox 95%. Repeat blood work reveals WBC 15.4, hemoglobin 8.3, platelet count 243. Sodium 149, potassium 2.8, chloride 111, CO2 28, BUN 66 and creatinine 1.49. Total bilirubin 2.4, AST 43, ALT 33 and alkaline phosphatase 260. All previous blood cultures have been positive for staph aureus MSSA. A repeat blood culture on August 2029 showing no growth at 24 hours. 09/04: Yesterday, patient underwent excision of sternal wound, partial sternotomy and pectoralis flap procedure. This morning, patient had new lines done by pulmonary medicine. Dr. Mcintyre has recommended continuing Kefzol and repeat blood cultures are in progress. Repeat chest x-ray reveals rotated exam, findings similar to prior, correlate for edema, pneumonia, ARDS. Cardiothoracic surgeryhas ordered a consult with Dr. Yuan. He has evaluated patient for global weakness and does not think she has new cervical spine issues that would cause her global weakness.patient continues to have fever with temperature maximum 102.2, tachycardic in the low 100s, respiratory rate 30, blood pressure 103/60, pulse ox 98%. She remains intubated and on mechanical ventilation with tidal volume 400, FiO2 50, PEEP of 5. WBC 17.5, hemoglobin 7.2, platelet count 328. Sodium 149, potassium 3.8, chloride 115, CO2 26, BUN 59 and creatinine 1.37. Blood sugars running 129-144. Magnesium 2.6. Total bilirubin 2.0, AST 39, alkaline phosphatase 197, ALT 19.. sputum culture has been obtained. Most recent blood culture from September 02 showing no growth at 24 hours and blood culture from September 01 is no growth at 48 hours. Patient is currently on very minimal sedation. 09/05: Patient remains in the ICU, intubated and on mechanical ventilation with tidal volume 400, FI02 40% and peep 5. Patient continues to run fevers. Dr. Mcintyre has changed antibiotics to cefepime and daptomycin. Blood cultures dated September 01, , are showing no growth. Sputum culture is in process. take up operator sinus tachycardia. Heart rate has been running between 108 and 121, respiratory rate 31, blood pressure 90/32, pulse ox 98%. She remains on low dose norepinephrine. Patient is off sedation with eyes open. She is not moving extremities. She has been evaluated by orthopedic spine and spinal etiology has essentially been ruled out. Patient is also been evaluated by neurology and critical care neuropathy has also been essentially ruled out. Patient stabilized, hopefully a MRI can be performed. WBC 13.4, hemoglobin 5.4 and this was rechecked, platelet count 313, sodium 152, potassium 3.6, BUN 45 and creatinine 1.2. Patient is receiving 1 unit of packed RBCs. Nephrology is continuing IV Lasix 40 mg daily. Patient is on PEG tube feedings and tolerating. 09/06: Patient remains in intensive care unit. She is intubated and on mechanical ventilation with tidal volume 400, FiO2 40, PEEP 5. The patient has her eyes open, she is responsive with facial movement, she is able to minimally move lower extremities. She has a fecal management system in place as well as Yu catheter with good urine output. Patient was running fevers yesterday until evening. Patient has been afebrile following a reading of 1800 last night of 100.9. She is on IV antibiotics with cefepime and daptomycin. Heart rate 95-112, respiratory rate 28. Repeat chest x-ray reveals cardiomegaly with increased alveolar and interstitial edema and/or infiltrates bilaterally remain present. Possible ARDS. Hemoglobin today is at 8 status post She is continued on IV Lasix per nephrology. Potassium replaced. W BC 10.6, platelet count 276. Sodium 150, potassium 3.6, chloride 119, CO2 24, BUN 42 and creatinine 1.03. Blood sugar 140. Patient is receiving tube feedings at goal rate. 09/07: She remains in the intensive care unit, intubated and on mechanical ventilation with FiO2 of 40%, PEEP of 5. She remains off sedation and is awake and able to follow some minimal commands. Mature max 101.6, heart rate 104, respiratory rate 34, blood pressure 81/30, pulse ox 97%. AP blood work reveals WBC 11.8, hemoglobin 9.5, platelet count 347. Sodium 148, potassium 3.7, chloride 117, CO2 25, BUN 38 and creatinine 0.96. Blood sugar running between 112 117. Magnesium 2.0. Total bilirubin 1.5, AST 41, ALT 19, alkaline phosphatase 181. Albumin 2.4. Blood cultures on every remain without g rowth at 120 hours. Sputum culture has been finalized no growth. Patient is continued on cefepime and optimizing. PICC line is being inserted this morning by interventional radiology. OG tube with feedings at goal. Patient is not currently on vasopressors. 3: Patient remains in the intensive care unit intubated and on mechanical ventilation with tidal volume 400, FiO2 35 and PEEP of 5. Patient was on CPAP yesterday for about 8 hours but was unable to tolerate for only short period today. Her mental status has been labile. She is intermittently following commands with no response and staring. Patient appears to be uncomfortable. Generalized anasarca noted. She has brown liquid stool from fecal management system and we will check a C. diff toxin. Most likely diarrhea is only from tube feedings. Temperature max 101.6. Heart rate 113, respiratory rate 39, blood pressure 120/61, pulse ox 99%. Repeat chest x-ray reveals correlate for pneumonia, edema, ARDS. Repeat blood work reveals WBC 10, hemoglobin 7.4, platelet count 298. Sodium 145, potassium 3.4, chloride 114, CO2 24, BUN 33 and creatinine 0.85. Blood sugars are running between 115 and 122. Total bilirubin 1.2, AST 39, ALT 23, and phosphatase 150. Urinalysis sent last evening showed blood moderate, RBC 64, WBC 7. Blood cultures since every are showing no growth. 09/09: Patient remains in the intensive care unit intubated and on mechanical ventilation. Patient has been started on Precedex. She remains with [address] to the sternal wound. Yu catheter with good urine output. Fecal management system in place. C. difficile toxin was negative. 2. Feedings are at goal. The patient is not focusing eyes, no purposeful movements. Patient has been afebrile greater than 24 hours. Heart rate 90s, respiratory rate 30s to 40s, blood pressure 112/64, pulse ox 97%. WBC 9.0, hemoglobin 7.3, platelet count 292. Potassium 3.4 and will be replaced. Blood sugars running between 100 2049. Alkaline phosphatase 161. TSH 3.7-0. We have also added a vitamin B12 level. Lasix was increased to twice daily. Temperature max 100.6. 09/10: Patient remains in intensive care unit, intubated and on mechanical ventilation with tidal volume 400, FiO2 35, PEEP 5. Patient has been started on propofol since yesterday's eval. Temperature max 100.6, heart rate 80, respiratory rate 28, blood pressure 104/60, pulse ox 90%. Repeat blood work reveals Connie BC 12.5, hemoglobin 7.4, platelet count 403. Electrolytes are normal. BUN 34 and creatinine 0.81. Blood sugars are running 123 236. Magnesium 2.0. AST 42, ALT 31, alkaline phosphatase 183. Chest x-ray is stable. 09/11:she remains in the intensive care unit, intubated and on mechanical ventilation. Patient has been off sedation this morning. Her eyes are open but she has no reaction, does not follow instructions. No purposeful movements.CAT scan of the cervical spine reveals C3-C7 ACDF hardware causing artifact. Thickening of the prevertebral soft tissues likely due to intubation state disc osteophyte complex contributing to moderate spinal stenosis at C3-C4. Severe left neural foraminal stenosis. Moderate to severe right neural foraminal stenosis at C6-C7. Degenerative grade 1 anterolisthesis at C7-T1. Thoracic spine CAT scan revealed no vertebral compression collapse. Degenerative grade 1 anterolisthesis secondary to hypertrophic facet arthropathy below the ACDF at C7-T1. Low utility for epidural abscess. No endplate erosions are seen.CAT scan of the brain reveals no acute intracranial abnormality. No enhancing intracranial lesions. Layering fluid in the mastoid air cells. repeat chest x- ray reveals correlate for pneumonia, junk congestive heart failure and pulmonary edema, ARDS. Lasix decreased to 40 mg IV once daily. free water flushes have been discontinuedper nephrology. Patient is followed by cardiology and pulmonary medicine as well. Patient has been afebrile since September 09. Heart rate in the 90s, respiratory rate in the 20s,110/44. WBC 13.2, hemoglobin 7.7, platelet count 428. Sodium 136, potassium 3.9, [id number], CO2 25, BUN 32 and creatinine 0.86. Blood sugars are running between 121 and 132. Alkaline phosphatase 163. Blood cultures since every have shown no growth. 09/12: patient remains in the intensive care unit, intubated and on mechanical ventilation. Patient has been off sedation this morning. Her eyes are open but she has no reaction, does not follow instructions. No purposeful movements.CAT scan of the cervical spine results noted above. Lasix decreased to 40 mg IV once daily. free water flushes have been discontinuedper nephrology. Patient is followed by cardiology and pulmonary medicine as well. Patient has been afebrile since September 09. Heart rate in the 90s, respiratory rate in the 20s,110/44. WBC 13.2, hemoglobin 7.7, platelet count 428. Sodium 136, potassium 3.9, [id number], CO2 25, BUN 32 and creatinine 0.86. Blood sugars are running between 121 and 132. Alkaline phosphatase 163. Blood cultures since every have shown no growth. 09/13: Remains in intensive care unit, intubated and on mechanical ventilation. Spontaneous respirations was attempted for approximate 40 minutes. Patient's respiration rate increased to 40 with increase in heart rate. Patient is scheduled for a trach on Monday with Dr. Sethi and a PEG tube with Dr. Oscar on Monday. WBC 11.2, hemoglobin 7.5, platelets 44. Blood sugars running from 120 to 130s. Blood pressure 170/62, patient remains afebrile, respirations 18, heart rate 108 FiO2 35 09/14: Remains in the intensive care unit, intubated and on mechanical ventilation with tidal volume 400, FiO2 35 of PEEP of 5. Patient is scheduled for Lasix which is going to be given after her procedures. Patient is scheduled for PEG tube and trach this morning. She remains with [address], midsternal having 50 MLS per shift. She also has Yu catheter and with 40 ML's per hour. She is not currently on vasopressors. Patient has a coccyx decubitus ulcer H2O she has coccyx area. She also has opted form to the scapula area. She has been afebrile, heart rate 92-108, blood pressure 136/85, pulse ox 97%. 2. Blood work reveals WBC 12.3, hemoglobin 8, platelet count 431. Electrolytes normal. BUN 31 and creatinine 0.73. Alkaline phosphatase 158. Repeat chest x-ray reveals diffuse pleural parenchymal changes are stable correlate for diffuse pneumonia, ARDS or heart failure. 09/15: Patient is status post PEG tube placement and trach. She remains on mechanical ventilation on CPAP. She is at on tube feedings. She remains with no purposeful movement. She has been afebrile, heart rate 100, blood pressure 123/68, pulse ox 99%. Repeat blood work reveals Connie BC 12.6, hemoglobin 7.7. Electrolytes normal, BUN 26 creatinine 0.85. Blood sugars 105-117. Social work is following for discharge planning. Patient has been off vasopressors. 09/16: She remains in the intensive care unit, on CPAP. She remains with no purposeful movements. She is off vasopressors. PEG tube feedings are in place. Temperature max 100.6. Heart rate 96, respiratory rate 30, blood pressure 109/60, pulse ox 98%. Repeat blood work reveals WBC 14.4, hemoglobin 7.5, platelet count 389. Potassium 3.4 otherwise electrolytes normal. BUN 26 and creatinine 0.81. Blood sugars running between 115-141. Chest x-ray reveals correlate for pneumonia, anemia, ARDS. Cardiology has signed off. Dr. Mcintyre continues to follow with plan to slowly wean off antibiotics. Patient is currently on cefepime and daptomycin. Discharge plan is to [facility]. REVIEW OF SYSTEMS Unable to obtain due to mental status change/intubation. PHYSICAL EXAMINATION Gen: This is a 75-year-old female. Patient is resting in ICU bed and appears to be comfortable. HEENT: Head is atraumatic, normocephalic. Pupils equal, round. Sclerae is anicteric. Midline trach with mechanical ventilation. NECK: Supple. No JVD. No lymphadenopathy. LUNGS: Diminished. No wheezes or rhonchi. No intercostal retractions. HEART: Regular rate and rhythm. 2/6 systolic murmur. Dressing to sternal wound, 3 RAHEEM drains with serosanguineous drainage. ABDOMEN: Soft. Bowel sounds are present. No masses. No tenderness. PEG tube in place. The catheter draining jac urine. Fecal management system with brown liquid stool. EXTREMITIES: 1+ bilat pitting edema. Generalized anasarca. NEUROLOGICAL: Patient resting comfortably in bed, eyes are open and staring, patient is not making any purposeful movements. She is able to move all extremities. ASSESSMENT AND PLAN 1. Acute diastolic heart failure, (POA) EF 55%, mild AI and mild MR and mild TR, also complicated by severe protein calorie malnutrition, Cardiology consult appreciated. Continue Lasix 40 mg IV daily managed by nephrology. 2. Acute hypoxemic respiratory failure. (POA) Patient has underlying pulmonary hypertension as well, consult with coronary. Patient is intubated and on mechanical ventilation. Pulmonary medicine is managing. Tracheostomy today. 3. Acute kidney injury secondary to ATN secondary to hypotension and cardiorenal syndrome. (POA) Patient is status post dialysis catheter placement, hemodialysis. Patient is followed closely by nephrology. 4. Hyperkalemia secondary to potassium supplementation, losartan and acute kidney injury as well as severe acidosis. (POA) Consult with nephrology appreciated. Continue medical management. 5. Metabolic acidosis secondary to acute kidney injury. (POA) 6. Metabolic encephalopathy secondary to acute kidney injury, acute heart failure, acute respiratory failure, metabolic acidosis and hyperkalemia. (POA) improving. 7. Sepsis with septic shock with multiorgan failure with metabolic encephalopathy, acute kidney injury, acute heart failure, acute respiratory failure, MSSA bacteremia. (POA) status post sternal exploration and sternal debridement on August 27. She requires vasopressors. Possible MSSA pneumonia on CAT scan. Patient is continued on cefepime and daptomycin. 8. Sepsis with sternal wound dehiscence. (POA) Status post sternal exploration and sternal debridement on 08/27 followed by excision of sternal wound, partial sternotomy and pectoralis flap procedure on 09/03. Infectious disease consult appreciated. Antibiotics have been transitioned to cefepime and daptomycin. Status post PEG tube and trach. 9. Acute blood loss anemia, postop, status post transfusion of 5 units of packed RBCs. Continue to monitor. 10. Hyponatremia. Continue to monitor. 11. CAD, with prior CABG performed on 08/10/2020, two-vessel, involving HOLLAND to LAD, and reverse greater saphenous vein to obtuse marginal coronary artery. Continue aspirin 325 mg daily, Plavix 75 mg daily, Toprol all 75 mg twice a day, 12. Severe protein calorie malnutrition, with anasarca and hypotension. Continue tube feedings. PEG tube. 13. History of pulmonary fibrosis. Continue duo nebs and albuterol 14. Asthma, mild intermittent. Continue ipratropium albuterol nebulizers 15. Hyperlipidemia. Continue statin daily 16. Hypertension. Currently hypotensive 17. GI prophylaxis. Pantoprazole 18. Critical care neuropathy essentially ruled out by and neurology. 19. DVT prophylaxis: SCDs 20. Blood sugar management in a nondiabetic. insulin scale every 6 hours. 21. Acute transaminitis secondary to hypoperfusion. 22. Chronic kidney disease stage II. 23. Stage II coccyx decubitus ulcer. Prognosis guarded DISCHARGE PLAN long-term acute care. Social work is following her discharge planning. Impression and plan of care have been directed as dictated by the signing physician. Monica Fragoso nurse practitioner acting as scribe for signing physician. Objective - Vital Signs Vital signs: Vital Signs Temp 99.5 F 09/16/20 08:00 Pulse 100 09/16/20 11:50 Resp 30 H 09/16/20 11:00 BP 109/60 09/16/20 11:00 Pulse Ox 98 09/16/20 11:00 Intake & Output 09/15/20 09/16/20 09/16/20 18:59 06:59 18:59 Intake Total 936 796 495 Output Total 1518 590 635 Balance -582 206 -140 Weight 81.3 kg Intake: IV 476 316 205 Cefepime 2 gm In Sodium 100 100 100 Chloride 0.9% 100 ml @ 25 mls/hr IVPB Q12HR [facility] Rx #:[id number] D5-0.45% NaCl with KCl 240 180 40 20Meq/l 1,000 ml @ 20 mls /hr IV .Q24H [facility] Rx#: [id number] DAPTOmycin 500 mg In 100 50 Sodium Chloride 0.9% 50 ml @ 100 mls/hr IVPB Q24HR [facility] Rx#:[id number] Pressure Bag 36 36 15 Oral 90 Tube Feeding 280 390 200 Other 90 90 90 Output: Drainage 38 25 50 RAHEEM #1. 3 0 0 RAHEEM #2 30 25 50 RAHEEM #3 5 0 0 Urine 1380 565 585 Stool 100 Other: Voiding Method Indwelling Catheter Indwelling Catheter Indwelling Catheter # Voids 1 1 ABP, PAP, CO, CI - Last Documented Arterial Blood Pressure 120/47 - Labs CBC & Chem 7: 09/16/20 04:30 09/16/20 04:30 Labs: Abnormal Lab Results - Last 24 Hours (Table) 09/15/20 09/15/20 09/16/20 Range/Units 17:18 23:45 04:30 WBC 14.4 H (3.8-10.6) k/uL RBC 2.62 L (3.80-5.40) m/uL Hgb 7.5 L (11.4-16.0) gm/dL Hct 24.2 L (34.0-46.0) % RDW 17.3 H (11.5-15.5) % ABG pH (7.35-7.45) ABG HCO3 (21-25) mmol/L ABG Total CO2 (19-24) mmol/L ABG O2 Saturation (94-97) % Potassium (3.5-5.1) mmol/L BUN (7-17) mg/dL Glucose (74-99) mg/dL POC Glucose (mg/dL) 115 H 115 H (75-99) mg/dL 09/16/20 09/16/20 09/16/20 Range/Units 04:30 05:05 05:29 WBC (3.8-10.6) k/uL RBC (3.80-5.40) m/uL Hgb (11.4-16.0) gm/dL Hct (34.0-46.0) % RDW (11.5-15.5) % ABG pH 7.50 H (7.35-7.45) ABG HCO3 31 H (21-25) mmol/L ABG Total CO2 32 H (19-24) mmol/L ABG O2 Saturation 99.3 H (94-97) % Potassium 3.4 L (3.5-5.1) mmol/L BUN 26 H (7-17) mg/dL Glucose 128 H (74-99) mg/dL POC Glucose (mg/dL) 141 H (75-99) mg/dL 09/16/20 Range/Units 11:56 WBC (3.8-10.6) k/uL RBC (3.80-5.40) m/uL Hgb (11.4-16.0) gm/dL Hct (34.0-46.0) % RDW (11.5-15.5) % ABG pH (7.35-7.45) ABG HCO3 (21-25) mmol/L ABG Total CO2 (19-24) mmol/L ABG O2 Saturation (94-97) % Potassium (3.5-5.1) mmol/L BUN (7-17) mg/dL Glucose (74-99) mg/dL POC Glucose (mg/dL) 109 H (75-99) mg/dL
--- NOTE | 2020-09-16 14:15 | P.PN ---
Subjective Progress Note Date: 09/16/20 Principal diagnosis: Acute hypoxic and hypercapnic respiratory failure secondary to sepsis and septic shock. 09/13/2020, the patient remains off sedation. She opens her eyes. She follows people around the room. She moves her legs occasionally. I haven't seen in follow-up in a maintenance. She does not follow commands. No seizure activity. No agitation. She seems to be quite and comfortable. Watching her, she can move her legs clearly and I've seen this on several occasions. The patient remains on a mechanical ventilator. She is on assist control mode, VC plus, r ate of 20 with a tidal volume of 400 and an inspiratory time of 0.8 with an FiO2 of 35% and a PEEP of 5. Her chest x-ray was showing improvement in the pulmonary infiltrates. The follow-up chest x-ray from today showed adequate positioning of ET tube. There is still some scattered bilateral pulmonary infiltrates, however, overall, findings are stable and the NG tube and orotracheal tube are both in a good location. Blood gases from today showed a pH of 7.49 with a pCO2 of 39 and a pO2 of 97 and this was done on an FiO2 of 35%. No significant orotracheal secretions. The patient remains on a combination of cefepime and daptomycin. No new cultures and her last positive blood culture with staph aureus was on 08/31/2020. She is afebrile. Her white cell count is at 11.2 and she has a hemoglobin of 7.5. Renal function is stable. She is receiving enteral feeding and she is on vital high protein at the rate of 55 mL an hour which is currently at goal. She is stooling. No diarrhea and she has adequate urine and stool output. She does have a cough. She does have a gag. I am going to check his weaning parameters. I do not have intentions to extubate the patient, however I may give her a prolonged once his breathing trial and assess her ability to do some spontaneous breathing on a pressure support mode of ventilation. On and off, she has been given fentanyl for pain control. RAHEEM drains are still in place with serosanguineous output and the sternum is stable clean and intact and the dressing is dry. The cardiac rhythm is sinus tachycardia and she is on Lopressor 50 mg by mouth twice a day. She is on no pressors. The fluid balance is -1000 mL and she is taking Lasix 40 mg IV on a daily basis. Patient was reevaluated today on 09/14/2020, remains intubated and mechanically ventilated. Patient is now on tidal volume is 400 assist control rate of 20 FiO2 35% PEEP is 5 ABG showed a pO2 of 106 pCO2 of 40 0 pH of 7.50. Ration is not requiring any pressors at this point. Patient is still on treatment for MSSA bacteremia and sepsis as well as septic shock. But she has made a significant improvement overall except her neurological status remains quite an issue. Patient is encephalopathic, and not ready to be weaned or extubated. Hence the patient is going for tracheostomy and PEG tube placement today. Patient had sternal muscle flap done by plastic surgery. Patient does not follow any commands. No seizure activity no agitations. Chest x-ray continues to show improvement in her bilateral pulmonary infiltrates. No significant orotracheal secretions. Remains on cefepime and daptomycin. Last positive blood cultures for staph were on 08/31/2020. ABC is showing improvement WBC count is 12.3 hemoglobin is 8. Basic metabolic profile is normal. Patient is not requiring any further dialysis. Liver profile is normal. Patient was reevaluated today on 09/15/2020, patient remains in the ICU, intubated and mechanically ventilated. He is however now status post tracheostomy and PEG tube placement, her ventilator settings are assist control rate of 20,000 volume is 400 FiO2 35% PEEP of 5. ABG showed a pO2 of 98 pCO2 of 39 pH of 7.51, patient was transitioned from assist-control mode of mechanical ventilation to pressure support and CPAP. Patient was placed on a pressure support of 14 and CPAP of 5. He is seemed to be tolerating that mode of mechanical ventilation quite well, however she did not tolerate lower pressure support less than 14. Her tidal volumes were measured to be significantly lower. Patient remains on cefepime and daptomycin. Remains on IV fluid and she is still encephalopathic, opens eyes, does not follow any instructions whatsoever. She is awake but does not track with her eyes and she does not follow any instructions. Remains on tube feeding, not up to goal yet. Chest x-ray continues to show bilateral infil trates and some component of interstitial lung disease Patient was reevaluated today on 09/16/2020, remains in the ICU, intubated and mechanically ventilated. She is status post tracheostomy and PEG tube placement, patient remains about the same from the neurological perspective, remains basically encephalopathic. Opens eyes, does not seem to be in any distress, however she does not follow any instructions whatsoever. Patient is on assist control rate of 20 tidal volume is 400 FiO2 of 35% and PEEP of 5. No ABG done today. Her IV fluid is at 100 mL per hour. Patient continues to take antibiotics for her sternal wound infection and that is being addressed by infectious disease on the case. Yesterday she tolerated a pressure support of 14 and CPAP, and today I plan to do the same. Patient will be transitioned to pressure support of 14 and CPAP of 5, and she'll be kept on it throughout the day. Yesterday she tolerated at least good 8 hours of this. Asked x-ray is basically about the same showing some mild interstitial infiltrates. WBC count is 14.4 hemoglobin is 7.5. Electrolytes are normal renal profile is normal potassium is 3.4 being corrected as per protocol. Follow-up blood cultures since the have been negative although previous blood cultures were positive for staph aureus. Objective - Vital Signs Vital signs: Vital Signs Temp 98.6 F 09/16/20 12:00 Pulse 105 H 09/16/20 14:00 Resp 27 H 09/16/20 14:00 BP 116/69 09/16/20 14:00 Pulse Ox 98 09/16/20 14:00 Intake & Output 09/15/20 09/16/20 09/16/20 18:59 06:59 18:59 Intake Total 936 796 691 Output Total 1518 590 855 Balance -582 206 -164 Weight 81.3 kg 81.3 kg Intake: IV 476 316 214 Cefepime 2 gm In Sodium 100 100 100 Chloride 0.9% 100 ml @ 25 mls/hr IVPB Q12HR [facility] Rx #:[id number] D5-0.45% NaCl with KCl 240 180 40 20Meq/l 1,000 ml @ 20 mls /hr IV .Q24H [facility] Rx#: [id number] DAPTOmycin 500 mg In 100 50 Sodium Chloride 0.9% 50 ml @ 100 mls/hr IVPB Q24HR [facility] Rx#:[id number] Pressure Bag 36 36 24 Oral 90 Tube Feeding 280 390 327 Other 90 90 150 Output: Drainage 38 25 50 RAHEEM #1. 3 0 0 RAHEEM #2 30 25 50 RAHEEM #3 5 0 0 Urine 1380 565 805 Stool 100 Other: Voiding Method Indwelling Catheter Indwelling Catheter Indwelling Catheter # Voids 1 1 ABP, PAP, CO, CI - Last Documented Arterial Blood Pressure 128/51 - Exam PHYSICAL EXAMINATION: Revealed a 75-year-old female, on mechanical ventilation, in no distress, awake but does not follow any instructions. HEENT:, PERRLA, EOMI, nonicteric.Moist mucous membranes tracheostomy is intact. And PEG tube is intact. CHEST EXAMINATION: Symmetrical chest expansion, fine crackles at the bases. HEART EXAMINATION normal S1 and S2, 2/6 systolic murmur thought the precordium. ABDOMEN: obese, Soft, nontender. Bowel sounds are heard. No organomegaly noted. PEG tube is noted. EXTREMITIES: Trace of bipedal edema, good pulses bilaterally. NEUROLOGIC EXAMINATION : Patient is awake, does not track with her eyes, does not follow any instructions. Psychiatric not be assessed. Skin: No rashes , however the patient has supposedly a stage II sacral decubitus ulcer. She also has an abrasion on the right forearm. - Labs CBC & Chem 7: 09/16/20 04:30 09/16/20 04:30 Labs: Abnormal Lab Results - Last 24 Hours (Table) 09/15/20 09/15/20 09/16/20 Range/Units 17:18 23:45 04:30 WBC 14.4 H (3.8-10.6) k/uL RBC 2.62 L (3.80-5.40) m/uL Hgb 7.5 L (11.4-16.0) gm/dL Hct 24.2 L (34.0-46.0) % RDW 17.3 H (11.5-15.5) % ABG pH (7.35-7.45) ABG HCO3 (21-25) mmol/L ABG Total CO2 (19-24) mmol/L ABG O2 Saturation (94-97) % Potassium (3.5-5.1) mmol/L BUN (7-17) mg/dL Glucose (74-99) mg/dL POC Glucose (mg/dL) 115 H 115 H (75-99) mg/dL 09/16/20 09/16/20 09/16/20 Range/Units 04:30 05:05 05:29 WBC (3.8-10.6) k/uL RBC (3.80-5.40) m/uL Hgb (11.4-16.0) gm/dL Hct (34.0-46.0) % RDW (11.5-15.5) % ABG pH 7.50 H (7.35-7.45) ABG HCO3 31 H (21-25) mmol/L ABG Total CO2 32 H (19-24) mmol/L ABG O2 Saturation 99.3 H (94-97) % Potassium 3.4 L (3.5-5.1) mmol/L BUN 26 H (7-17) mg/dL Glucose 128 H (74-99) mg/dL POC Glucose (mg/dL) 141 H (75-99) mg/dL 09/16/20 Range/Units 11:56 WBC (3.8-10.6) k/uL RBC (3.80-5.40) m/uL Hgb (11.4-16.0) gm/dL Hct (34.0-46.0) % RDW (11.5-15.5) % ABG pH (7.35-7.45) ABG HCO3 (21-25) mmol/L ABG Total CO2 (19-24) mmol/L ABG O2 Saturation (94-97) % Potassium (3.5-5.1) mmol/L BUN (7-17) mg/dL Glucose (74-99) mg/dL POC Glucose (mg/dL) 109 H (75-99) mg/dL Assessment and Plan Assessment: Impression: Acute hypoxic and hypercapnic respiratory failure secondary to MSSA bacteremia, sepsis, septic shock, and sternal wound infection. Postoperative day #12, status post excision of sternal wound and muscle flap. Septic shock secondary to above, resolved. Acute kidney injury, resolved. Acute metabolic acidosis secondary to above, resolved. Acute diastolic congestive heart failure with bilateral pleural effusions, improved. Benign essential hypertension. History of severe cervical stenosis. Mild interstitial lung disease. 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 Status post sternal exploration and sternal wound debridement August 27. Acute metabolic encephalopathy, not improving, practically the same Failure to wean requiring tracheostomy and PEG tube placement. 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 Status post tracheostomy and PEG tube placement on 09/14/2020 Recommendation: Continue ventilatory suppplace again today on pressure support of 14 and CPAP of 5. Continue antibiotics as per infectious disease on the case. Continue tracheostomy and PEG tube Continue enteral feeding. Antibiotics as per infectious disease on the case. Continue RAHEEM drains from sternum. Continue diuretics as needed. We will continue to follow. Awaiting placement possibly LTAC. Critical care time is over 30 minutes Time with Patient: Greater than 30
[2020-09-16] MEDS ORDERED: POTASSIUM BICARBONATE/CIT AC 20 MEQ TABLET.EFF NG-TUBE SCH (16:00)
[2020-09-16 17:47] LABS: Glucose,Whole Blood 116 mg/dL (75-99)
--- NOTE | 2020-09-16 18:32 | P.PN ---
Subjective Progress Note Date: 09/16/20 Principal diagnosis: Malnutrition Patient stable on the ventilator. She is tolerating her tube feeds at goal. No obvious discomfort. Objective - Vital Signs Vital signs: Vital Signs Temp 99.7 F H 09/16/20 16:00 Pulse 104 H 09/16/20 18:00 Resp 27 H 09/16/20 18:00 BP 144/79 09/16/20 18:00 Pulse Ox 95 09/16/20 18:00 Intake & Output 09/15/20 09/16/20 09/16/20 18:59 06:59 18:59 Intake Total 936 796 971 Output Total 3190 549 7125 Balance -582 206 -184 Weight 81.3 kg 81.3 kg Intake: IV 476 316 226 Cefepime 2 gm In Sodium 100 100 100 Chloride 0.9% 100 ml @ 25 mls/hr IVPB Q12HR [facility] Rx #:[id number] D5-0.45% NaCl with KCl 240 180 40 20Meq/l 1,000 ml @ 20 mls /hr IV .Q24H [facility] Rx#: [id number] DAPTOmycin 500 mg In 100 50 Sodium Chloride 0.9% 50 ml @ 100 mls/hr IVPB Q24HR [facility] Rx#:[id number] Pressure Bag 36 36 36 Oral 90 Tube Feeding 280 390 515 Other 90 90 230 Output: Drainage 38 25 50 RAHEEM #1. 3 0 0 RAHEEM #2 30 25 50 RAHEEM #3 5 0 0 Urine 6543 699 1255 Stool 100 Other: Voiding Method Indwelling Catheter Indwelling Catheter Indwelling Catheter # Voids 1 1 ABP, PAP, CO, CI - Last Documented Arterial Blood Pressure 88/38 - Exam Abdomen: Soft, nondistended, normal tenderness at PEG tube site - Labs CBC & Chem 7: 09/16/20 04:30 09/16/20 15:06 Labs: Abnormal Lab Results - Last 24 Hours (Table) 09/15/20 09/16/20 09/16/20 Range/Units 23:45 04:30 04:30 WBC 14.4 H (3.8-10.6) k/uL RBC 2.62 L (3.80-5.40) m/uL Hgb 7.5 L (11.4-16.0) gm/dL Hct 24.2 L (34.0-46.0) % RDW 17.3 H (11.5-15.5) % ABG pH (7.35-7.45) ABG HCO3 (21-25) mmol/L ABG Total CO2 (19-24) mmol/L ABG O2 Saturation (94-97) % Potassium 3.4 L (3.5-5.1) mmol/L BUN 26 H (7-17) mg/dL Glucose 128 H (74-99) mg/dL POC Glucose (mg/dL) 115 H (75-99) mg/dL 09/16/20 09/16/20 09/16/20 Range/Units 05:05 05:29 11:56 WBC (3.8-10.6) k/uL RBC (3.80-5.40) m/uL Hgb (11.4-16.0) gm/dL Hct (34.0-46.0) % RDW (11.5-15.5) % ABG pH 7.50 H (7.35-7.45) ABG HCO3 31 H (21-25) mmol/L ABG Total CO2 32 H (19-24) mmol/L ABG O2 Saturation 99.3 H (94-97) % Potassium (3.5-5.1) mmol/L BUN (7-17) mg/dL Glucose (74-99) mg/dL POC Glucose (mg/dL) 141 H 109 H (75-99) mg/dL 09/16/20 Range/Units 17:45 WBC (3.8-10.6) k/uL RBC (3.80-5.40) m/uL Hgb (11.4-16.0) gm/dL Hct (34.0-46.0) % RDW (11.5-15.5) % ABG pH (7.35-7.45) ABG HCO3 (21-25) mmol/L ABG Total CO2 (19-24) mmol/L ABG O2 Saturation (94-97) % Potassium (3.5-5.1) mmol/L BUN (7-17) mg/dL Glucose (74-99) mg/dL POC Glucose (mg/dL) 116 H (75-99) mg/dL Assessment and Plan Plan: Patient tolerating tube feedings at goal. We'll loosen the patient's bolster tomorrow.
--- NOTE | 2020-09-16 20:21 | P.PN ---
Subjective Progress Note Date: 09/16/20 Patient was seen for a follow-up. Patient is on no sedation. Patient underwent tracheostomy and PEG placement 09/14/2020. Patient continues to be encephalopathic, does not follow commands, does not track. Objective - Vital Signs Vital signs: Vital Signs Temp 99.7 F H 09/16/20 16:00 Pulse 103 H 09/16/20 19:00 Resp 24 09/16/20 19:00 BP 100/57 09/16/20 19:00 Pulse Ox 95 09/16/20 19:00 Intake & Output 09/16/20 09/16/20 09/17/20 06:59 18:59 06:59 Intake Total 796 971 230 Output Total 590 1155 80 Balance 206 -184 150 Weight 81.3 kg 81.3 kg Intake: IV 316 226 106 Cefepime 2 gm In Sodium 100 100 100 Chloride 0.9% 100 ml @ 25 mls/hr IVPB Q12HR [facility] Rx #:[id number] D5-0.45% NaCl with KCl 180 40 20Meq/l 1,000 ml @ 20 mls /hr IV .Q24H [facility] Rx#: [id number] DAPTOmycin 500 mg In 50 Sodium Chloride 0.9% 50 ml @ 100 mls/hr IVPB Q24HR [facility] Rx#:[id number] Pressure Bag 36 36 6 Tube Feeding 390 515 94 Other 90 230 30 Output: Drainage 25 50 RAHEEM #1. 0 0 RAHEEM #2 25 50 ARHEEM #3 0 0 Urine 565 1105 80 Other: Voiding Method Indwelling Catheter Indwelling Catheter # Voids 1 ABP, PAP, CO, CI - Last Documented Arterial Blood Pressure 93/39 - Exam 09/16/2020: Essentially unchanged as 09/15/2020. 09/15/2020: Patient is alert and awake, but very encephalopathic. Eyes are open. Patient does not follow commands. Patient has tracheostomy in place. Pupils are round and reactive to light, face appears symmetric. Patient did not smile or protrude her tongue. Patient turns her head, slightly to one or the other side, almost like a bird. Sometimes she moves her legs one or the other en-blok, appears to have good muscle mass. At times, patient extends her legs. However patient is very spastic as per reflexes. Reflexes (right/left) biceps 3+/2, brachioradialis 3+/3+, knees 3/3, ankles are 1+, plantars are upgoing bilaterally. Sensory or cerebellar examination could not be tested. 09/14/2020: Patient sedated, therefore exam deferred. Just had undergone tracheostomy and PEG placement. 09/06/2020: Patient asleep, sedated, therefore detailed examination deferred. 09/05/2020: On examination patient is awake, opens her eyes, , sometimes tracks, the times not. Patient again smiled slightly to asking her to smile. Otherwise did not answer or nodded if she has pain anywhere, did not follow any commands regarding extremities. Very slight movement to painful stim with us on the right foot but not in the other 3 extremities. Patient was noted to have some rhythmic head movement [id number] and then she would have low amplitude slow bicycling type of activity in the arms and legs. No twitching, but was consiste nt for some time. Patient not even responding to her for following commands except for that she did turn her head and made eye contact with her . Did not tell if she is in pain anywhere. Her pupils are round and reacting. Visual lópez could not be tested. Face appears symmetric. She is on ventilator. No movement in the 4 extremities except for some rhythmic movement as above. - Labs CBC & Chem 7: 09/16/20 04:30 09/16/20 15:06 Labs: Abnormal Lab Results - Last 24 Hours (Table) 09/15/20 09/16/20 09/16/20 Range/Units 23:45 04:30 04:30 WBC 14.4 H (3.8-10.6) k/uL RBC 2.62 L (3.80-5.40) m/uL Hgb 7.5 L (11.4-16.0) gm/dL Hct 24.2 L (34.0-46.0) % RDW 17.3 H (11.5-15.5) % ABG pH (7.35-7.45) ABG HCO3 (21-25) mmol/L ABG Total CO2 (19-24) mmol/L ABG O2 Saturation (94-97) % Potassium 3.4 L (3.5-5.1) mmol/L BUN 26 H (7-17) mg/dL Glucose 128 H (74-99) mg/dL POC Glucose (mg/dL) 115 H (75-99) mg/dL 09/16/20 09/16/20 09/16/20 Range/Units 05:05 05:29 11:56 WBC (3.8-10.6) k/uL RBC (3.80-5.40) m/uL Hgb (11.4-16.0) gm/dL Hct (34.0-46.0) % RDW (11.5-15.5) % ABG pH 7.50 H (7.35-7.45) ABG HCO3 31 H (21-25) mmol/L ABG Total CO2 32 H (19-24) mmol/L ABG O2 Saturation 99.3 H (94-97) % Potassium (3.5-5.1) mmol/L BUN (7-17) mg/dL Glucose (74-99) mg/dL POC Glucose (mg/dL) 141 H 109 H (75-99) mg/dL 09/16/20 Range/Units 17:45 WBC (3.8-10.6) k/uL RBC (3.80-5.40) m/uL Hgb (11.4-16.0) gm/dL Hct (34.0-46.0) % RDW (11.5-15.5) % ABG pH (7.35-7.45) ABG HCO3 (21-25) mmol/L ABG Total CO2 (19-24) mmol/L ABG O2 Saturation (94-97) % Potassium (3.5-5.1) mmol/L BUN (7-17) mg/dL Glucose (74-99) mg/dL POC Glucose (mg/dL) 116 H (75-99) mg/dL Assessment and Plan Assessment: * New onset quadriplegia, unclear etiology. Patient is clearly spastic in the arms and legs with bilateral Babinski. Rule out myelomalacia due to spinal stenosis, transverse myelitis or other cord abnormality. CT of the cervical an d thoracic spine with IV contrast showed no evidence of discitis osteomyelitis. 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 Improved. Blood cultures negative since 09/01/2020. * Status post CABG, followed by wound infection, requiring sternal debridement with persistent sepsis. Status post placement of muscle flap. * Status post Septic shock with MSSA * Acute kidney injury, improving significantly * Acute transaminitis, improving * Anemia * CHF * Hypertension * History of cervical fusion, spinal stenosis in the past. Plan: * Patient continues to be very spastic in the arms and legs. Also has encephalopathy, not following commands. Await MRI of the brain and cervical s pine, when able to be performed. * EEG 09/05/2020, which was abnormal due to background slowing of moderate to severe degree. This is suggestive of generalized cerebral dysfunction as can be seen with toxic metabolic encephalopathy or related to diffuse structural brain abnormality. No epileptiform activity was seen. No indication for antiepileptic medication. * Patient continues to be encephalopathic, due to toxic metabolic encephalopathy. * Appreciate Orthopedic spine input. Hardware in the cervical spine is stable. No loosening. * CPK 74, TSH 1.87, aldolase 8.4 (1.2 to 7.6). * Anemia, improved. CT abdomen and pelvis negative. * Patient being considered for transfer to long-term care facility. * Please reconsult neurology, if patient undergoes MRI, or if any other neurological concerns arises. We will follow sporadically.
[2020-09-16] MEDS: MELATONIN 3 MG TABLET PO SCH (20:34)
--- NOTE | 2020-09-16 23:33 | PN ---
PROGRESS NOTE DATE OF SERVICE: 09/16/2020 REASON FOR FOLLOWUP: MSSA bacteremia suggestive of osteomyelitis. INTERVAL HISTORY: The patient is currently afebrile. The patient is hemodynamically stable. FiO2 is currently stable at 35%. The patient's mentation remains to be an issue. Has been tolerating her tube feeds. No worsening diarrhea reported by the nursing staff. PHYSICAL EXAMINATION: Blood pressure 132/78 with a pulse of 110, temperature 99.4. She is 98% on 35% FiO2. General description is an elderly female lying in bed in no distress. RESPIRATORY SYSTEM: Unlabored breathing with decreased breath sounds at the base. No wheeze. HEART: S1, S2. Regular rate and rhythm. ABDOMEN: Soft. No tenderness. LABS: Hemoglobin 7.5, white count 14.4, BUN of 26, creatinine 0.81. Blood culture repeat has been negative. 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 The patient's antibiotic will be broadened to daptomycin and cefepime. However, with the cultures negative for any resistant pathogen, antibiotic will be switched back to cefazolin and clinical course will be monitored closely. Continue with supportive care. MMODL / IJN: [id number] /
[2020-09-17] MEDS: HEPARIN SODIUM,PORCINE 5,000 UNIT/ML 1 ML VIAL SQ SCH ×3 (00:11→16:03)
[2020-09-17] MEDS: INSULIN ASPART (NovoLOG) 100 UNIT/ML VIAL SQ SCH ×4 (03:30→18:07)
[2020-09-17 04:07] LABS: Anisocytosis Slight; Basophils # (A) 0.1 k/uL (0-0.2); Basophils % (A) 1 %; Eosinophils # (A) 0.6 k/uL (0-0.7); Eosinophils % (A) 4 %; HCT 25.3 % (34.0-46.0); HGB 8.3 gm/dL (11.4-16.0); Hypochromasia Moderate; Lymphocytes # (A) 3.9 k/uL (1.0-4.8); Lymphocytes % (A) 25 %; MCH 29.6 pg (25.0-35.0); MCHC 32.6 g/dL (31.0-37.0); MCV 90.8 fL (80.0-100.0); Mean Platelet Volume 8.7; Monocytes # (A) 0.7 k/uL (0-1.0); Monocytes % (A) 5 %; Neutrophils % (A) 64 %; Platelet Count 415 k/uL (150-450); Poikilocytosis Slight; RBC 2.79 m/uL (3.80-5.40); RDW 16.7 % (11.5-15.5); WBC 15.5 k/uL (3.8-10.6)
[2020-09-17 04:57] LABS: ALT 19 U/L (4-34); AST 33 U/L (14-36); African American GFR (CKD) >90 (>60 ml/min/1.73 sqM); Albumin 2.9 g/dL (3.5-5.0); Alkaline Phosphatase 145 U/L (38-126); Anion Gap 8 mmol/L; Blood Urea Nitrogen 32 mg/dL (7-17); Calcium 9.3 mg/dL (8.4-10.2); Carbon Dioxide 32 mmol/L (22-30); Chloride 104 mmol/L (98-107); Glucose 129 mg/dL (74-99); Non-African American GFR(CKD) 86 (>60 ml/min/1.73 sqM); Potassium 3.6 mmol/L (3.5-5.1); Sodium 144 mmol/L (137-145); Total Bilirubin 0.8 mg/dL (0.2-1.3); Total Protein 7.2 g/dL (6.3-8.2)
[2020-09-17 05:14] LABS: ABG Base Excess 9.6 mmol/L; ABG HCO3 33 mmol/L (21-25); ABG Oxygen Saturation 99.4 % (94-97); ABG PCO2 45 mmHg (35-45); ABG PH 7.48 (7.35-7.45); ABG PO2 105 mmHg (83-108); ABG TCO2 35 mmol/L (19-24); Allen Test Performed? Yes
[2020-09-17 05:21] LABS: Glucose,Whole Blood 122 mg/dL (75-99)
[2020-09-17] MEDS ORDERED: POTASSIUM BICARBONATE/CIT AC 20 MEQ TABLET.EFF NG-TUBE SCH ×2 (07:00→19:00)
[2020-09-17] MEDS: IPRATROPIUM-ALBUTEROL 3 ML NEB INHALATION SCH ×4 (08:03→19:13)
--- NOTE | 2020-09-17 08:15 | P.PN ---
Subjective Progress Note Date: 09/17/20 Principal diagnosis: Shortness of breath, acute diastolic heart failure, bilateral pleural effusion, lactic acidosis, hypercapnic respiratory failure requiring BiPAP followed by nv chanical ventilation, deep sternal wound infection with MSSA, acute kidney injury, acute hyperkalemia, hyponatremia, acute transaminitis, hypotension requiring vasopressors use, acute anemia. Previous medical history of coronary artery disease with left main stenosis status post 2 vessel CABG on 08/10/2020 with expected postoperative acute blood loss anemia, hypotension, and urinary retention as well as candidal stomatititus, hyponatremia, pulmonary fibrosis, asthma, hypertension, hyperlipidemia, previous tobacco dependence, obesity, osteoarthritis, cervical stenosis post anterior cervical disc decompression, discectomy and fusion, TIA as a child, family history of premature coronary artery disease. Paroxysmal Afib w/ RVR POD #20 sternal exploration with sternal debridement, subsequent wound VAC placement POD #14 removal of cable and partial resection of the manubrium as well as part ial sternotomy by Dr. Sethi; right pectoralis major myocutaneous flap, left pectoralis major myocutaneous flap by Dr. Thomas POD #3 status post tracheostomy tube placement POD #3 EGD with PEG tube placement The patient was seen and examined at the bedside in the ICU. Remains off sedation, mechanically ventilated but with spontaneous breathing for the last 24 hours, FiO2 35%, pressure support 14, PEEP 5. She is opening her eyes and occasionally tracking, withdraws from painful stimuli x all 4 extremities, moving bilateral lower extremities. She does nod and shake her head appropriately. T-max 99.7 in the last 24 hours, WBC 15.5, all cultures since 09/01/2020 have been negative. Patient continues on IV ancef per infectious disease. Currently in NSR with HR in the low 100s. Blood pressure stable. BUN 32, creatinine 0.69. Hemoglobin 8.3 this morning. Tube feeds continue at goal, tolerating well. Family updated daily by phone. Objective - Vital Signs Vital signs: Vital Signs Temp 98.9 F 09/17/20 00:00 Pulse 101 H 09/17/20 06:00 Resp 28 H 09/17/20 06:00 BP 135/64 09/17/20 06:00 Pulse Ox 97 09/17/20 06:00 Intake & Output 03/04/2909/17/20 09/17/20 18:59 06:59 18:59 Intake Total 971 900 Output Total 1155 875 Balance -184 25 Weight 81.3 kg 76.8 kg Intake: IV 226 246 .9 NS 60 Cefepime 2 gm In Sodium 100 100 Chloride 0.9% 100 ml @ 25 mls/hr IVPB Q12HR [facility] Rx #:[id number] D5-0.45% NaCl with KCl 40 20Meq/l 1,000 ml @ 20 mls /hr IV .Q24H [facility] Rx#: [id number] DAPTOmycin 500 mg In 50 Sodium Chloride 0.9% 50 ml @ 100 mls/hr IVPB Q24HR [facility] Rx#:[id number] Pressure Bag 36 36 ceFAZolin 2 gm In Sodium 50 Chloride 0.9% 50 ml @ 100 mls/hr IVPB Q8HR [facility] Rx# :[id number] Tube Feeding 515 564 Other 230 90 Output: Drainage 50 20 RAHEEM #1. 0 RAHEEM #2 50 20 RAHEEM #3 0 Urine 1105 855 Other: Voiding Method Indwelling Catheter Indwelling Catheter ABP, PAP, CO, CI - Last Documented Arterial Blood Pressure 155/61 - Constitutional Constitutional Comment(s): Appears comfortable General appearance: Present: cooperative, no acute distress - Respiratory Details: Lungs sounds diminished bilaterally. Respirations even, nonlabored on mechanical ventilation. Current ventilator settings spontaneous breathing with FiO2 35%, pressure support 14 with a PEEP 5. ABGs on those settings 7 .48/45/105/33/99%. #8 fenestrated Shiley trach is midline and intact. - Cardiovascular Details: S1, S2 present. Regular rate and rhythm, sinus rhythm to sinus tach with heart rate in the high 90s to low 100s. Palpable peripheral pulses bilaterally. Trace generalized edema present. Heart hugger, antiembolism stockings, SCDs present. Right arm PICC line, right brachial arterial line present. - Gastrointestinal Gastrointestinal Comment(s): Abdomen soft, nontender, nondistended. Active bowel sounds present in 4 quadrants. PEG tube present to left upper quadrant with tube feeding infusing at goal. Fecal management system was removed, patient did have to liquid brown stools this morning per nursing - Genitourinary Genitourinary Comment(s): Yu present draining clear, yellow urine. Output 30-125 mL per hour overnight, 1960 mL in the last 24 hours - Integumentary Integumentary Comment(s): Skin is warm and dry. Anterior chest incision well approximated, franc present and intact. 3 RAHEEM drains present with minimal drainage - Neurologic Neurologic Comment(s): Awake and alert with eyes open, occasional tracking. Does nod and shake had appropriately. Withdraws to painful stimuli to upper extremities, moving bilateral lower extremities independently - Musculoskeletal Musculoskeletal: Present: generalized weakness - Psychiatric Psychiatric Comment(s): Unable to assess orientation - Allied health notes Allied health notes reviewed: nursing - Labs CBC & Chem 7: 09/17/20 04:00 09/17/20 04:00 Labs: Abnormal Lab Results - Last 24 Hours (Table) 09/16/20 09/16/20 09/17/20 Range/Units 11:56 17:45 04:00 WBC 15.5 H (3.8-10.6) k/uL RBC 2.79 L (3.80-5.40) m/uL Hgb 8.3 L (11.4-16.0) gm/dL Hct 25.3 L (34.0-46.0) % RDW 16.7 H (11.5-15.5) % Neutrophils # 10.0 H (1.3-7.7) k/uL ABG pH (7.35-7.45) ABG HCO3 (21-25) mmol/L ABG Total CO2 (19-24) mmol/L ABG O2 Saturation (94-97) % Carbon Dioxide (22-30) mmol/L BUN (7-17) mg/dL Glucose (74-99) mg/dL POC Glucose (mg/dL) 109 H 116 H (75-99) mg/dL Alkaline Phosphatase (38-126) U/L Albumin (3.5-5.0) g/dL 09/17/20 09/17/20 09/17/20 Range/Units 04:00 05:10 05:20 WBC (3.8-10.6) k/uL RBC (3.80-5.40) m/uL Hgb (11.4-16.0) gm/dL Hct (34.0-46.0) % RDW (11.5-15.5) % Neutrophils # (1.3-7.7) k/uL ABG pH 7.48 H (7.35-7.45) ABG HCO3 33 H (21-25) mmol/L ABG Total CO2 35 H (19-24) mmol/L ABG O2 Saturation 99.4 H (94-97) % Carbon Dioxide 32 H (22-30) mmol/L BUN 32 H (7-17) mg/dL Glucose 129 H (74-99) mg/dL POC Glucose (mg/dL) 122 H (75-99) mg/dL Alkaline Phosphatase 145 H (38-126) U/L Albumin 2.9 L (3.5-5.0) g/dL - Imaging and Cardiology Chest x-ray: image reviewed Assessment and Plan Assessment: 1. Shortness of breath, acute diastolic heart failure, EF 55-60% on current TTE, bilateral pleural effusions 2. Lactic acidosis, septic shock, blood cultures positive for MSSA, resolved 3. Hypercapnic, hypoxic respiratory failure requiring BiPAP, with subsequent intubation and mechanical ventilation, status post tracheostomy placement 4. Open sternal wound, surgically created, deep sternal wound infection with MSSA, S/P surgical exploration and debridement, wound VAC placement, subsequent removal of cable and partial resection of the manubrium as well as partial sternotomy and myocutaneous flap closure 5. Leukocytosis with bandemia, bandemia resolved 6. Acute kidney injury, metabolic acidosis, resolved 7. Acute hyperkalemia, resolved 8. Acute transaminitis secondary to hypoperfusion, resolved 9. History of hypertension, hypotensive this admission requiring vasopressors, resolved 10. Acute anemia, post transfusion PRBCs, on [facility] 11. Coronary artery disease with left main stenosis status post 2 vessel CABG on 08/10/2020 with expected postoperative acute blood loss anemia, hypotension, and urinary retention as well as candidal stomatititus 12. Hyponatremia, resolved 13. Pulmonary fibrosis, asthma 14. Hyperlipidemia, treated 15. Previous tobacco dependence 16. Obesity 17. 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 Malnutrition, status post EGD with PEG tube placement Plan: 1. Ventilator management per pulmonary medicine. Weaning trials per pulmonary 2. Nephrology following, avoid nephrotoxins. Daily IV Lasix 3. Infectious disease following, final blood cultures/sternal wound cultures positive for MSSA, most recent cultures all negative. Continues on Ancef 4. Continue aspirin, statin, Plavix, beta sisi therapy. Increase beta sisi as tolerated 5. No anticoagulation 6. Will monitor daily labs and x-rays, ABGs. Electrolyte replacement per protocol 7. Neurology following for critical illness myopathy 8. GI/DVT prophylaxis 9. Continue tube feeding for nutrition 10. Will DC every other staple from her incentive sternal incision, discontinued one RAHEEM 11. Will update family daily 12. More recommendations to follow. May go to long-term acute care when okay with [employer] supervisor Time with Patient: Greater than 30
[2020-09-17] MEDS: FUROSEMIDE 10 MG/ML 4 ML VIAL IV SCH (08:32)
[2020-09-17] MEDS: PANTOPRAZOLE 40 MG/10 ML VIAL IVP SCH (08:32)
[2020-09-17] MEDS: CLOPIDOGREL 75 MG TAB PO SCH (08:33)
[2020-09-17] MEDS: ATORVASTATIN 40 MG TAB PEG/G-TUBE SCH (08:33)
[2020-09-17] MEDS: ASPIRIN 325 MG TAB PO SCH (08:33)
[2020-09-17] MEDS: CHLORHEXIDINE GLUCONATE 15 ML CUP MUCOUS MEM SCH ×2 (08:33→20:11)
[2020-09-17] MEDS: METOPROLOL TARTRATE 25 MG TAB PO SCH ×2 (08:34→20:11)
--- NOTE | 2020-09-17 08:49 | XR ---
EXAMINATION TYPE: XR chest 1V portable DATE OF EXAM: 09/17/2020 COMPARISON: Prior chest x-ray 09/16/2020 HISTORY: Postop coronary artery bypass graft TECHNIQUE: Single frontal view of the chest is obtained. FINDINGS: Findings are similar to prior exam. IMPRESSION: No significant interval change.
[2020-09-17] MEDS: DRY MOUTH SPRAY 44.3 SPRAY/44.3 ML SPRAY MUCOUS MEM SCH ×4 (09:12→22:13)
[2020-09-17 12:14] LABS: Glucose,Whole Blood 119 mg/dL (75-99)
[2020-09-17] MEDS: ASCORBIC ACID 500 MG TAB PO SCH (12:36)
[2020-09-17] MEDS: FERROUS SULFATE ORAL ELIXIR 300 MG/5 ML CUP PO SCH (12:36)
--- NOTE | 2020-09-17 13:31 | P.PN ---
Subjective Progress Note Date: 09/17/20 HISTORY OF PRESENT ILLNESS This is a 75-year-old female patient of Dr. Rich Avila, Dr. Sloan and Dr. Guadalupe. She has a past medical history significant for hypertension, hype rlipidemia, pulmonary fibrosis, asthma, obesity, remote history of tobacco dependence with smoking 32 years ago, osteoarthritis, cervical stenosis post anterior cervical decompression, discectomy and fusion, TIA as a child at age 11 and family history of premature coronary artery disease with her father being diagnosed in his early 50s. Recently, the patient has been experiencing episodes of shortness of breath over the past 6 months with just minimal activity. She also complained of some lower extremity swelling which did resolve with some diuresis. she underwent a stress test which showed anterior wall ischemia with small reversible defect. a 2-D echocardiogram which showed mild aortic valve insufficiency, mild mitral valve regurgitation, mild tricuspid valve regurgitation and left ventricular function to be normal with an ejection fraction of 55%. Subsequently she underwent an elective heart catheterization on 07/27/2020 which demonstrated a left main stenosis with QING with a calculation of 2.6 mm, a 40% stenosis to her mid left anterior descending coronary artery and a 30% stenosis to her right coronary artery. Due to the patient's symptoms and findings on her heart catheterization of left main stenosis a consult was placed to Dr. Sethi from cardiothoracic surgery for further evaluation and treatment recommendations. During her preoperative workup her serum sodium level was found to be 120 and was admitted prior to surgery for treatment of hyponatremia. Last admission On 08/06/2020-08/19/20 the patient was admitted to the hospital for treatment of her hyponatremia, and once her hyponatremia was resolved on 08/10/2020, asubsequently taken to the operating room where Dr. Sethi performed a double vessel coronary artery bypass grafting surgery using the left internal mammary artery to left anterior setting coronary artery, a reverse greater saphenous vein graft from the aorta to the first obtuse marginal coronary artery, endoscopic harvesting of the left greater saphenous vein from the groin Upon completion of the surgery the patient was transferred to the intensive care unit where she was recovered, monitored hemodynamically and where she progressed cardiac rehabilitation phase Her oxygen was titrated down, she continued to work with physical/occupational therapy and cardiac rehabilitation, she was tolerating an oral diet, her pain was well controlled without narcotics and she was ready to be discharged home with [facility] care on postoperative day #9. Did not require home O2 on last admission however she required new medication changes including diuretics during that last admission. Patient comes in in worsening shortness of breath anasarca, no chest pain, has ABRKER, edma without leg pain new medications from last visit was compliant, requiring lipitor 75bid, tolvaptan. meotprolol 75 bid plavix, lasix 40 mg daily losartain 25 asa 325, ferrous sulfate and fluconazole. patient comes in now for CHF, anarsarc ely pleural effusion, consult with dr Sethi. and cardiology, if okay will be cardiothoracic surgeon can also perform the thoracentesis, however with hypoxemia, also have requested Dr. Gamboa's services. Patient has a hemoglobin of 7.0 on and 3, platelet count of 305, hemoglobin right to admission was 8.0 denies any Hemoccult stools, creatinine was 1.60 from a previous of 0.9 blood pressure is in the low 90s systolic, pulse ox, 90 on 4 L nasal cannula, patient was not discharged with home O2 during her last admission 08/24: A-Team was called for mental status changes. Patient was found to have a blood pressure 99/65, heart rate of 85 and pulse ox of 96% on a nonrebreather with respiratory rate of 32. Patient was transferred to the ICU. She was started on vancomycin and cefepime. Patient has been seen by cardiology with plan to continue vasopressor support, patient may need pleurocentesis. Stat echocardiogram was done to rule out pericardial effusion or tamponade. Patient has been seen by nephrology for acute kidney injury secondary to ATN secondary to hypotension and cardiorenal syndrome. Patient is currently on bicarb drip, status post Lasix 80 mg IV once. Renal replacement therapy to be initiated immediately. Vascular consult in place for a dialysis catheter placement and start hemodialysis today with second treatment tomorrow. Sternal wound was producing thick yellowish brown fluid, was opened approximately 2 cm and deep culture was taken, packed and covered with 4 x 4 dressing. She is requiring vasopressors. She is hypothermic and warming blanket is in place.Patient had minimal output yesterday and none today. She is status post 2.5 L of fluids. 08/25 patient was examined in the ICU. She was able to maintain oxygenation on BiPAP overnight switch to high flow 15 m this morning. Patient did have episodes of agitation last night and was started on Seroquel. She did receive a dose of Seroquel prior to admission and was found to be resting comfortably. Patient is off pressors and bicarbonate drip and metabolic acidosis seemed to have cleared off. On evaluation of patient's lab, WBC is 14.3, hemoglobin 6.5 platelet 208 ABG this morning has a pH of 7.47 CO2 74. Bicarb 29. Sodium has improved to 126 chloride 96 BUN 43 creatinine 2.79 lactic acid has improved to 2.9 calcium 7 liver enzymes elevated AST at 2874 ALT 1469 alkaline phosphatase 192 CRP 356 BNP 13,000 UA does suggest some infection with WBC of 88 hyaline casts 33 protein 2+ urine blood trace nitrite negative leukocyte Estrace negative. Wound cultures positive for presumptive staph aureus. Patient's blood culture from yesterday are positive with presumptive staph aureus. Repeat blood cultures ordered. Patient received 1 unit of PRBCs for low hemoglobin. Urine output has improved to 20-40 mL's per hour. Patient did receive a dose of DDAVP for hyponatremia. Normal saline is running at 50 mL per hour. Did receive hemodialysis today with 2 L ultrafiltration. Patient was also noted to be in A. fib with RVR intermittently and her dose of Lopressor was increased to 25 mg every 8 hours. Continue daptomycin and cefepime for antibiotic coverage. Monitor patient's for QTC prolongation well on Seroquel. Patient has significant dehiscence of wound and may need I&D 08/26: She was intubated and placed on mechanical ventilation overnight with pulse ox of 96%, tidal volume 450, FiO2 50, PEEP of 5. Temperature max last evening was 101.2. Heart rate 82, blood pressure 120/53. WBC 9.6, hemoglobin 10.8, platelet count 159. Sodium 134, potassium 4.7, chloride 100, CO2 25, BUN 14 creatinine 1.83. Blood sugars running between 100 2753. Total bilirubin 3.3, AST 1067, ALT 993, alkaline phosphatase 251. Magnesium 2.1. Patient is on vasopressors. site monitor atrial flutter alternating with sinus rhythm. Patient is also on propofol and Seroquel discontinued. Thoracic surgery is possible taking her to or for I&D and considering wound VAC. Patient is on Plavix. Echocardiogram reveals normal LV function and mild aortic stenosis. Patient is currently on daptomycin and cefepime per Dr. Mcintyre. Urine output remains low at 15-20 mL per hour. Should she is scheduled for third hemodialysis treatment today. Patient is scheduled for Lasix 80 mg IV this afternoon. 08/27 she remains in the ICU, intubated and mechanically ventilated. Patient is going to the OR for debridement today. Patient remains intubated on 50% FiO2 and PEEP of 5, assist control rate of 20volume 450. Continues to require Levophed at 11mcg/ hr . Blood clots and culture positive for MSSA. Urine output is 50-60 mL per hour. Patient continues to be on sedation from propofol at 50 max per KG permanent. IV fluids at KVO. Patient continues to have good urine output after a dose of 80 mg of IV Lasix today. Vision tolerated 2.5 L ultrafiltration yesterday and is started on hemodialysis on August 24. No holiday sedation today. Plan to continue Lasix 80 IV once daily and holding hemodialysis. Anticoagulation held for debridement. 08/28 patient remains in the ICU. Did have sternal Exploration and debridement yesterday remains sedated on propofol. Patient continues to have high temp of 101.6, to 233 tachycardic 111 blood pressure 106/51 oxygen saturation 95% on 50% FiO2. Labs suggest a leukocytosis of 24.3 hemoglobin stable at 10.7 platelet count has dipped dropped to 78, he really suggest a pH of 7.53 pCO2 30 PaO2 57, chloride of 110 potassium 3.5 and anion gap of 6 BUN 46 creatinine 0.9 calcium 7.8 ALT 3:15 alkaline phosphatase 312 AST 112 blood cultures from 08/26 positive for staph aureus. Urine output 1.2 L in 24 hours Repeat blood cultures sent today. Patient continues to be normal sinus rhythm not currently on any anticoagulation at the possibility of going for another debridement. Patient's continues to be on levo fed and still stays intubated. Continue IV Lasix. Patient initiated on IV Lasix 08/29: Patient remain in the ICU, remain on mechanical ventilation, sternal exploration and debridement was done and still have packing area within open wound at this point. Oxygenation is better patient is not 3 to be off vent at this point. Her urine output has been good and hemodynamically stable. 08/30: Patient still on mechanical ventilation, his sternum 1 and was changed today still have significant amount of infection and pus was packed still open. Patient remain on nafcillin and Moni mycin. Still having positive blood culture. 08/31: Patient is more awake today doing trial of weaning parameter try to get patient off the respirator, her incision and infection along the sternum is no change still have packing on still on IV antibiotics. Hemodynamically is more stable. 09/01: Patient evaluated in the ICU, continues on mechanical ventilation. Wound packing was removed yesterday, purulence was noted on the packing, deep near the heart and purulence around the heart. She continues on IV clindamycin and nafcillin. Patient was taken off sedation yesterday for a trial of weaning, but she became hypertensive and tachypneic so she is placed back on sedation. 09/02: Patient remains intubated and on mechanical ventilation with tidal volume 400, FiO2 of 50% and PEEP of 5. Patient has been off sedation since Monday. She is receiving OG tube feedings. She appears to be opening meaning her eyes and can shake her head. Otherwise not moving extremities. She has a wound VAC in place to the sternal wound. Wound cultures and blood culture positive for MSSA. She is scheduled for sternal wound excision and debridement with flap reconstruction and graft tomorrow with Dr. Whittaker. Repeat blood work reveals WBC of 13.6, hemoglobin 8.5. BUN 66 and creatinine 1.62, potassium 3.2 and has been replaced, blood sugars running between 107 and 132. Because renal functioning is worsening, nephrology has recommended holding nafcillin. Repeat chest x-ray reveals correlate for pneumonia, edema, ARDS. 09/03: She remains in the intensive care unit intubated and on mechanical ventilation with tidal volume 400, FiO2 40, PEEP of 5. Patient is awake with eyes open. She nodded her head no to having pain. She had a temperature this morning of 101.6 at 6 AM. Antibiotics are currently in the form of Kefzol. Repeat chest x-ray was done this morning and report is pending. Patient has been seen by neurology and doubt critical illness neuropathy. CAT scan of the brain and cervical spine done that showed no acute fracture or dislocation in the cervical spine. No acute intracranial hemorrhage, mass effect or midline shift. Ongoing airspace disease. Cardiology has recommended reinitiating statin. Temperature max 101.6, heart rate 101, blood pressure 117/52, pulse ox 95%. Repeat blood work reveals WBC 15.4, hemoglobin 8.3, platelet count 243. Sodium 149, potassium 2.8, chloride 111, CO2 28, BUN 66 and creatinine 1.49. Total bilirubin 2.4, AST 43, ALT 33 and alkaline phosphatase 260. All previous blood cultures have been positive for staph aureus MSSA. A repeat blood culture on August 2029 showing no growth at 24 hours. 09/04: Yesterday, patient underwent excision of sternal wound, partial sternotomy and pectoralis flap procedure. This morning, patient had new lines done by pulmonary medicine. Dr. Mcintyre has recommended continuing Kefzol and repeat blood cultures are in progress. Repeat chest x-ray reveals rotated exam, findings similar to prior, correlate for edema, pneumonia, ARDS. Cardiothoracic surgeryhas ordered a consult with Dr. Yuan. He has evaluated patient for global weakness and does not think she has new cervical spine issues that would cause her global weakness.patient continues to have fever with temperature maximum 102.2, tachycardic in the low 100s, respiratory rate 30, blood pressure 103/60, pulse ox 98%. She remains intubated and on mechanical ventilation with tidal volume 400, FiO2 50, PEEP of 5. WBC 17.5, hemoglobin 7.2, platelet count 328. Sodium 149, potassium 3.8, chloride 115, CO2 26, BUN 59 and creatinine 1.37. Blood sugars running 129-144. Magnesium 2.6. Total bilirubin 2.0, AST 39, alkaline phosphatase 197, ALT 19.. sputum culture has been obtained. Most recent blood culture from September 02 showing no growth at 24 hours and blood culture from September 01 is no growth at 48 hours. Patient is currently on very minimal sedation. 09/05: Patient remains in the ICU, intubated and on mechanical ventilation with tidal volume 400, FI02 40% and peep 5. Patient continues to run fevers. Dr. Mcintyre has changed antibiotics to cefepime and daptomycin. Blood cultures dated September 01, , are showing no growth. Sputum culture is in process. site monitor sinus tachycardia. Heart rate has been running between 108 and 121, respiratory rate 31, blood pressure 90/32, pulse ox 98%. She remains on low dose norepinephrine. Patient is off sedation with eyes open. She is not moving extremities. She has been evaluated by orthopedic spine and spinal etiology has essentially been ruled out. Patient is also been evaluated by neurology and critical care neuropathy has also been essentially ruled out. Patient stabilized, hopefully a MRI can be performed. WBC 13.4, hemoglobin 5.4 and this was rechecked, platelet count 313, sodium 152, potassium 3.6, BUN 45 and creatinine 1.2. Patient is receiving 1 unit of packed RBCs. Nephrology is continuing IV Lasix 40 mg daily. Patient is on PEG tube feedings and tolerating. 09/06: Patient remains in intensive care unit. She is intubated and on mechanical ventilation with tidal volume 400, FiO2 40, PEEP 5. The patient has her eyes open, she is responsive with facial movement, she is able to minimally move lower extremities. She has a fecal management system in place as well as Yu catheter with good urine output. Patient was running fevers yesterday until evening. Patient has been afebrile following a reading of 1800 last night of 100.9. She is on IV antibiotics with cefepime and daptomycin. Heart rate 95-112, respiratory rate 28. Repeat chest x-ray reveals cardiomegaly with increased alveolar and interstitial edema and/or infiltrates bilaterally remain present. Possible ARDS. Hemoglobin today is at 8 status post She is continued on IV Lasix per nephrology. Potassium replaced. W BC 10.6, platelet count 276. Sodium 150, potassium 3.6, chloride 119, CO2 24, BUN 42 and creatinine 1.03. Blood sugar 140. Patient is receiving tube feedings at goal rate. 09/07: She remains in the intensive care unit, intubated and on mechanical ventilation with FiO2 of 40%, PEEP of 5. She remains off sedation and is awake and able to follow some minimal commands. Mature max 101.6, heart rate 104, respiratory rate 34, blood pressure 81/30, pulse ox 97%. AP blood work reveals WBC 11.8, hemoglobin 9.5, platelet count 347. Sodium 148, potassium 3.7, chloride 117, CO2 25, BUN 38 and creatinine 0.96. Blood sugar running between 112 117. Magnesium 2.0. Total bilirubin 1.5, AST 41, ALT 19, alkaline phosphatase 181. Albumin 2.4. Blood cultures on every remain without g rowth at 120 hours. Sputum culture has been finalized no growth. Patient is continued on cefepime and optimizing. PICC line is being inserted this morning by interventional radiology. OG tube with feedings at goal. Patient is not currently on vasopressors. 3: Patient remains in the intensive care unit intubated and on mechanical ventilation with tidal volume 400, FiO2 35 and PEEP of 5. Patient was on CPAP yesterday for about 8 hours but was unable to tolerate for only short period today. Her mental status has been labile. She is intermittently following commands with no response and staring. Patient appears to be uncomfortable. Generalized anasarca noted. She has brown liquid stool from fecal management system and we will check a C. diff toxin. Most likely diarrhea is only from tube feedings. Temperature max 101.6. Heart rate 113, respiratory rate 39, blood pressure 120/61, pulse ox 99%. Repeat chest x-ray reveals correlate for pneumonia, edema, ARDS. Repeat blood work reveals WBC 10, hemoglobin 7.4, platelet count 298. Sodium 145, potassium 3.4, chloride 114, CO2 24, BUN 33 and creatinine 0.85. Blood sugars are running between 115 and 122. Total bilirubin 1.2, AST 39, ALT 23, and phosphatase 150. Urinalysis sent last evening showed blood moderate, RBC 64, WBC 7. Blood cultures since every are showing no growth. 09/09: Patient remains in the intensive care unit intubated and on mechanical ventilation. Patient has been started on Precedex. She remains with [address] to the sternal wound. Yu catheter with good urine output. Fecal management system in place. C. difficile toxin was negative. 2. Feedings are at goal. The patient is not focusing eyes, no purposeful movements. Patient has been afebrile greater than 24 hours. Heart rate 90s, respiratory rate 30s to 40s, blood pressure 112/64, pulse ox 97%. WBC 9.0, hemoglobin 7.3, platelet count 292. Potassium 3.4 and will be replaced. Blood sugars running between 100 2049. Alkaline phosphatase 161. TSH 3.7-0. We have also added a vitamin B12 level. Lasix was increased to twice daily. Temperature max 100.6. 09/10: Patient remains in intensive care unit, intubated and on mechanical ventilation with tidal volume 400, FiO2 35, PEEP 5. Patient has been started on propofol since yesterday's eval. Temperature max 100.6, heart rate 80, respiratory rate 28, blood pressure 104/60, pulse ox 90%. Repeat blood work reveals Connie BC 12.5, hemoglobin 7.4, platelet count 403. Electrolytes are normal. BUN 34 and creatinine 0.81. Blood sugars are running 123 236. Magnesium 2.0. AST 42, ALT 31, alkaline phosphatase 183. Chest x-ray is stable. 09/11:she remains in the intensive care unit, intubated and on mechanical ventilation. Patient has been off sedation this morning. Her eyes are open but she has no reaction, does not follow instructions. No purposeful movements.CAT scan of the cervical spine reveals C3-C7 ACDF hardware causing artifact. Thickening of the prevertebral soft tissues likely due to intubation state disc osteophyte complex contributing to moderate spinal stenosis at C3-C4. Severe left neural foraminal stenosis. Moderate to severe right neural foraminal stenosis at C6-C7. Degenerative grade 1 anterolisthesis at C7-T1. Thoracic spine CAT scan revealed no vertebral compression collapse. Degenerative grade 1 anterolisthesis secondary to hypertrophic facet arthropathy below the ACDF at C7-T1. Low utility for epidural abscess. No endplate erosions are seen.CAT scan of the brain reveals no acute intracranial abnormality. No enhancing intracranial lesions. Layering fluid in the mastoid air cells. repeat chest x- ray reveals correlate for pneumonia, junk congestive heart failure and pulmonary edema, ARDS. Lasix decreased to 40 mg IV once daily. free water flushes have been discontinuedper nephrology. Patient is followed by cardiology and pulmonary medicine as well. Patient has been afebrile since September 09. Heart rate in the 90s, respiratory rate in the 20s,110/44. WBC 13.2, hemoglobin 7.7, platelet count 428. Sodium 136, potassium 3.9, [id number], CO2 25, BUN 32 and creatinine 0.86. Blood sugars are running between 121 and 132. Alkaline phosphatase 163. Blood cultures since every have shown no growth. 09/12: patient remains in the intensive care unit, intubated and on mechanical ventilation. Patient has been off sedation this morning. Her eyes are open but she has no reaction, does not follow instructions. No purposeful movements.CAT scan of the cervical spine results noted above. Lasix decreased to 40 mg IV once daily. free water flushes have been discontinuedper nephrology. Patient is followed by cardiology and pulmonary medicine as well. Patient has been afebrile since September 09. Heart rate in the 90s, respiratory rate in the 20s,110/44. WBC 13.2, hemoglobin 7.7, platelet count 428. Sodium 136, potassium 3.9, [id number], CO2 25, BUN 32 and creatinine 0.86. Blood sugars are running between 121 and 132. Alkaline phosphatase 163. Blood cultures since every have shown no growth. 09/13: Remains in intensive care unit, intubated and on mechanical ventilation. Spontaneous respirations was attempted for approximate 40 minutes. Patient's respiration rate increased to 40 with increase in heart rate. Patient is scheduled for a trach on Monday with Dr. Sethi and a PEG tube with Dr. Oscar on Monday. WBC 11.2, hemoglobin 7.5, platelets 44. Blood sugars running from 120 to 130s. Blood pressure 170/62, patient remains afebrile, respirations 18, heart rate 108 FiO2 35 09/14: Remains in the intensive care unit, intubated and on mechanical ventilation with tidal volume 400, FiO2 35 of PEEP of 5. Patient is scheduled for Lasix which is going to be given after her procedures. Patient is scheduled for PEG tube and trach this morning. She remains with [address], midsternal having 50 MLS per shift. She also has Yu catheter and with 40 ML's per hour. She is not currently on vasopressors. Patient has a coccyx decubitus ulcer H2O she has coccyx area. She also has opted form to the scapula area. She has been afebrile, heart rate 92-108, blood pressure 136/85, pulse ox 97%. 2. Blood work reveals WBC 12.3, hemoglobin 8, platelet count 431. Electrolytes normal. BUN 31 and creatinine 0.73. Alkaline phosphatase 158. Repeat chest x-ray reveals diffuse pleural parenchymal changes are stable correlate for diffuse pneumonia, ARDS or heart failure. 09/15: Patient is status post PEG tube placement and trach. She remains on mechanical ventilation on CPAP. She is at on tube feedings. She remains with no purposeful movement. She has been afebrile, heart rate 100, blood pressure 123/68, pulse ox 99%. Repeat blood work reveals Connie BC 12.6, hemoglobin 7.7. Electrolytes normal, BUN 26 creatinine 0.85. Blood sugars 105-117. Social work is following for discharge planning. Patient has been off vasopressors. 09/16: She remains in the intensive care unit, on CPAP. She remains with no purposeful movements. She is off vasopressors. PEG tube feedings are in place. Temperature max 100.6. Heart rate 96, respiratory rate 30, blood pressure 109/60, pulse ox 98%. Repeat blood work reveals WBC 14.4, hemoglobin 7.5, platelet count 389. Potassium 3.4 otherwise electrolytes normal. BUN 26 and creatinine 0.81. Blood sugars running between 115-141. Chest x-ray reveals correlate for pneumonia, anemia, ARDS. Cardiology has signed off. Dr. Mcintyre continues to follow with plan to slowly wean off antibiotics. Patient is currently on cefepime and daptomycin. Discharge plan is to [facility] acute care. 09/17: Patient remains in the intensive care unit. Repeat chest x-ray reveals no significant interval change. Patient status remains unchanged. She continues to have eyes open but unresponsive and no purposeful movement. [address]. Fecal management system has been removed. Yu catheter in place. site monitor is in normal sinus rhythm. Patient is not requiring vasopressors. No documented fevers since September 15. Antibiotics have been transitioned to IV Kefzol. Pulse 92, blood pressure 87/44. FiO2 35%, pressure support 14 and PEEP of 5. Patient has been cleared for discharge to long-term rehab once cleared by petrophysical engineer. REVIEW OF SYSTEMS Unable to obtain due to mental status change/intubation. PHYSICAL EXAMINATION Gen: This is a 75-year-old female. Patient is resting in ICU bed and appears to be comfortable. HEENT: Head is atraumatic, normocephalic. Pupils equal, round. Sclerae is anicteric. Midline trach with mechanical ventilation. NECK: Supple. No JVD. No lymphadenopathy. LUNGS: Diminished. No wheezes or rhonchi. No intercostal retractions. HEART: Regular rate and rhythm. 2/6 systolic murmur. Dressing to sternal wound, 3 RAHEEM drains with serosanguineous drainage. ABDOMEN: Soft. Bowel sounds are present. No masses. No tenderness. PEG tube in place. The catheter draining jac urine. Fecal management system with brown liquid stool. EXTREMITIES: 1+ bilat pitting edema. Generalized anasarca. NEUROLOGICAL: Patient resting comfortably in bed, eyes are open and staring, patient is not making any purposeful movements. She is able to move all extremities. ASSESSMENT AND PLAN 1. Acute diastolic heart failure, (POA) EF 55%, mild AI and mild MR and mild TR, also complicated by severe protein calorie malnutrition, Cardiology consult appreciated. Continue Lasix 40 mg IV daily managed by nephrology. 2. Acute hypoxemic respiratory failure. (POA) Patient has underlying pulmonary hypertension as well, consult with coronary. Patient was intubated and on mechanical ventilation. Pulmonary medicine is managing. His post tracheotomy. 3. Acute kidney injury secondary to ATN secondary to hypotension and cardiorenal syndrome. (POA) Patient is status post dialysis catheter placement, hemodialysis. Patient is followed closely by nephrology. Renal function is stable. 4. Hyperkalemia secondary to potassium supplementation, losartan and acute kidney injury as well as severe acidosis. (POA) Consult with nephrology appreciated. Continue medical management. 5. Metabolic acidosis secondary to acute kidney injury. (POA) 6. Metabolic encephalopathy secondary to acute kidney injury, acute heart failure, acute respiratory failure, metabolic acidosis and hyperkalemia. (POA) improving. 7. Sepsis with septic shock with multiorgan failure with metabolic encephalopa thy, acute kidney injury, acute heart failure, acute respiratory failure, MSSA bacteremia. (POA) status post sternal exploration and sternal debridement on August 27. She required vasopressors. Possible MSSA pneumonia on CAT scan. Patient transitioned to Kefzol. 8. Sepsis with sternal wound dehiscence. (POA) Status post sternal exploration and sternal debridement on 08/27 followed by excision of sternal wound, partial sternotomy and pectoralis flap procedure on 09/03. Infectious disease consult appreciated. Antibiotics have been transitioned to Kefzol. Status post PEG tube and trach. 9. Acute blood loss anemia, postop, status post transfusion of 5 units of packed RBCs. Continue to monitor. 10. Hyponatremia. Continue to monitor. 11. CAD, with prior CABG performed on 08/10/2020, two-vessel, involving HOLLAND to LAD, and reverse greater saphenous vein to obtuse marginal coronary artery. Continue aspirin 325 mg daily, Plavix 75 mg daily, Lopressor 75 mg twice daily. 12. Severe protein calorie malnutrition, with anasarca and hypotension. Continue tube feedings. Status post PEG tube. 13. History of pulmonary fibrosis. Continue duo nebs and albuterol 14. Asthma, mild intermittent. Continue ipratropium albuterol nebulizers 15. Hyperlipidemia. Continue statin daily 16. Hypertension. Currently hypotensive 17. GI prophylaxis. Pantoprazole 18. Critical care neuropathy essentially ruled out by and neurology. 19. DVT prophylaxis: SCDs 20. Blood sugar management in a nondiabetic. insulin scale every 6 hours. 21. Acute transaminitis secondary to hypoperfusion. 22. Chronic kidney disease stage II. 23. Stage II coccyx decubitus ulcer. Prognosis guarded DISCHARGE PLAN assisted acute care. Social work is following her discharge planning. Impression and plan of care have been directed as dictated by the signing p refugio. Monica Fragoso nurse practitioner acting as scribe for signing physician. Objective - Vital Signs Vital signs: Vital Signs Temp 99.6 F 09/17/20 08:00 Pulse 82 09/17/20 10:00 Resp 31 H 09/17/20 10:00 BP 113/58 09/17/20 10:00 Pulse Ox 97 09/17/20 10:00 Intake & Output 09/16/20 09/17/20 09/17/20 18:59 06:59 18:59 Intake Total 971 900 89 Output Total 1155 875 192 Balance -184 25 -103 Weight 81.3 kg 76.8 kg Intake: IV 226 246 89 .9 NS 60 30 Cefepime 2 gm In Sodium 100 100 Chloride 0.9% 100 ml @ 25 mls/hr IVPB Q12HR [facility] Rx #:[id number] D5-0.45% NaCl with KCl 40 20Meq/l 1,000 ml @ 20 mls /hr IV .Q24H [facility] Rx#: [id number] DAPTOmycin 500 mg In 50 Sodium Chloride 0.9% 50 ml @ 100 mls/hr IVPB Q24HR [facility] Rx#:[id number] Pressure Bag 36 36 9 ceFAZolin 2 gm In Sodium 50 50 Chloride 0.9% 50 ml @ 100 mls/hr IVPB Q8HR [facility] Rx# :[id number] Tube Feeding 515 564 Other 230 90 Output: Drainage 50 20 3 RAHEEM #1. 0 3 RAHEEM #2 50 20 0 RAHEEM #3 0 0 Urine 1105 855 189 Other: Voiding Method Indwelling Catheter Indwelling Catheter Indwelling Catheter # Bowel Movements 1 1 ABP, PAP, CO, CI - Last Documented Arterial Blood Pressure 111/43 - Labs CBC & Chem 7: 09/17/20 04:00 09/17/20 04:00 Labs: Abnormal Lab Results - Last 24 Hours (Table) 09/16/20 09/16/20 09/17/20 Range/Units 11:56 17:45 04:00 WBC 15.5 H (3.8-10.6) k/uL RBC 2.79 L (3.80-5.40) m/uL Hgb 8.3 L (11.4-16.0) gm/dL Hct 25.3 L (34.0-46.0) % RDW 16.7 H (11.5-15.5) % Neutrophils # 10.0 H (1.3-7.7) k/uL ABG pH (7.35-7.45) ABG HCO3 (21-25) mmol/L ABG Total CO2 (19-24) mmol/L ABG O2 Saturation (94-97) % Carbon Dioxide (22-30) mmol/L BUN (7-17) mg/dL Glucose (74-99) mg/dL POC Glucose (mg/dL) 109 H 116 H (75-99) mg/dL Alkaline Phosphatase (38-126) U/L Albumin (3.5-5.0) g/dL 09/17/20 09/17/20 09/17/20 Range/Units 04:00 05:10 05:20 WBC (3.8-10.6) k/uL RBC (3.80-5.40) m/uL Hgb (11.4-16.0) gm/dL Hct (34.0-46.0) % RDW (11.5-15.5) % Neutrophils # (1.3-7.7) k/uL ABG pH 7.48 H (7.35-7.45) ABG HCO3 33 H (21-25) mmol/L ABG Total CO2 35 H (19-24) mmol/L ABG O2 Saturation 99.4 H (94-97) % Carbon Dioxide 32 H (22-30) mmol/L BUN 32 H (7-17) mg/dL Glucose 129 H (74-99) mg/dL POC Glucose (mg/dL) 122 H (75-99) mg/dL Alkaline Phosphatase 145 H (38-126) U/L Albumin 2.9 L (3.5-5.0) g/dL
--- NOTE | 2020-09-17 14:01 | P.PN ---
Subjective Progress Note Date: 09/17/20 Principal diagnosis: Acute hypoxic and hypercapnic respiratory failure secondary to sepsis and septic shock. 09/13/2020, the patient remains off sedation. She opens her eyes. She follows people around the room. She moves her legs occasionally. I haven't seen in follow-up in a maintenance. She does not follow commands. No seizure activity. No agitation. She seems to be quite and comfortable. Watching her, she can move her legs clearly and I've seen this on several occasions. The patient remains on a mechanical ventilator. She is on assist control mode, VC plus, r ate of 20 with a tidal volume of 400 and an inspiratory time of 0.8 with an FiO2 of 35% and a PEEP of 5. Her chest x-ray was showing improvement in the pulmonary infiltrates. The follow-up chest x-ray from today showed adequate positioning of ET tube. There is still some scattered bilateral pulmonary infiltrates, however, overall, findings are stable and the NG tube and orotracheal tube are both in a good location. Blood gases from today showed a pH of 7.49 with a pCO2 of 39 and a pO2 of 97 and this was done on an FiO2 of 35%. No significant orotracheal secretions. The patient remains on a combination of cefepime and daptomycin. No new cultures and her last positive blood culture with staph aureus was on 08/31/2020. She is afebrile. Her white cell count is at 11.2 and she has a hemoglobin of 7.5. Renal function is stable. She is receiving enteral feeding and she is on vital high protein at the rate of 55 mL an hour which is currently at goal. She is stooling. No diarrhea and she has adequate urine and stool output. She does have a cough. She does have a gag. I am going to check his weaning parameters. I do not have intentions to extubate the patient, however I may give her a prolonged once his breathing trial and assess her ability to do some spontaneous breathing on a pressure support mode of ventilation. On and off, she has been given fentanyl for pain control. RAHEEM drains are still in place with serosanguineous output and the sternum is stable clean and intact and the dressing is dry. The cardiac rhythm is sinus tachycardia and she is on Lopressor 50 mg by mouth twice a day. She is on no pressors. The fluid balance is -1000 mL and she is taking Lasix 40 mg IV on a daily basis. Patient was reevaluated today on 09/14/2020, remains intubated and mechanically ventilated. Patient is now on tidal volume is 400 assist control rate of 20 FiO2 35% PEEP is 5 ABG showed a pO2 of 106 pCO2 of 40 0 pH of 7.50. Ration is not requiring any pressors at this point. Patient is still on treatment for MSSA bacteremia and sepsis as well as septic shock. But she has made a significant improvement overall except her neurological status remains quite an issue. Patient is encephalopathic, and not ready to be weaned or extubated. Hence the patient is going for tracheostomy and PEG tube placement today. Patient had sternal muscle flap done by plastic surgery. Patient does not follow any commands. No seizure activity no agitations. Chest x-ray continues to show improvement in her bilateral pulmonary infiltrates. No significant orotracheal secretions. Remains on cefepime and daptomycin. Last positive blood cultures for staph were on 08/31/2020. ABC is showing improvement WBC count is 12.3 hemoglobin is 8. Basic metabolic profile is normal. Patient is not requiring any further dialysis. Liver profile is normal. Patient was reevaluated today on 09/15/2020, patient remains in the ICU, intubated and mechanically ventilated. He is however now status post tracheostomy and PEG tube placement, her ventilator settings are assist control rate of 20,000 volume is 400 FiO2 35% PEEP of 5. ABG showed a pO2 of 98 pCO2 of 39 pH of 7.51, patient was transitioned from assist-control mode of mechanical ventilation to pressure support and CPAP. Patient was placed on a pressure support of 14 and CPAP of 5. He is seemed to be tolerating that mode of mechanical ventilation quite well, however she did not tolerate lower pressure support less than 14. Her tidal volumes were measured to be significantly lower. Patient remains on cefepime and daptomycin. Remains on IV fluid and she is still encephalopathic, opens eyes, does not follow any instructions whatsoever. She is awake but does not track with her eyes and she does not follow any instructions. Remains on tube feeding, not up to goal yet. Chest x-ray continues to show bilateral infil trates and some component of interstitial lung disease Patient was reevaluated today on 09/16/2020, remains in the ICU, intubated and mechanically ventilated. She is status post tracheostomy and PEG tube placement, patient remains about the same from the neurological perspective, remains basically encephalopathic. Opens eyes, does not seem to be in any distress, however she does not follow any instructions whatsoever. Patient is on assist control rate of 20 tidal volume is 400 FiO2 of 35% and PEEP of 5. No ABG done today. Her IV fluid is at 100 mL per hour. Patient continues to take antibiotics for her sternal wound infection and that is being addressed by infectious disease on the case. Yesterday she tolerated a pressure support of 14 and CPAP, and today I plan to do the same. Patient will be transitioned to pressure support of 14 and CPAP of 5, and she'll be kept on it throughout the day. Yesterday she tolerated at least good 8 hours of this. Asked x-ray is basically about the same showing some mild interstitial infiltrates. WBC count is 14.4 hemoglobin is 7.5. Electrolytes are normal renal profile is normal potassium is 3.4 being corrected as per protocol. Follow-up blood cultures since the have been negative although previous blood cultures were positive for staph aureus. Reevaluated today on 09/17/2020, patient remains on mechanical ventilation, she basically went through the whole 24 hours on pressure support of 14 and CPAP of 5 with FiO2 of 35%. Remains on this mode of mechanical ventilation. Today I cut down her pressure support from 14-12. Her ABG showed a pO2 of 105 pCO2 45 pH of 7.48. Patient is showing slight improvement in her mental status today, she is blinking her eyes, slightly wiggling her toes, seems to be comprehending very minimal commands. Patient remains on IV fluid to KVO. Remains on tube feeds. And her RAHEEM lines will be removed by thoracic surgery today. Chest x-ray continues to show minimal bilateral interstitial infiltrates. Apparently patient is known to have history of interstitial lung disease. Transfer plans are in progress for possibly sending the patient to [facility]. WBC count today is 15.5 hemoglobin is 8.3. Basic metabolic profile and renal profile are normal. Objective - Vital Signs Vital signs: Vital Signs Temp 99.4 F 09/17/20 12:00 Pulse 94 09/17/20 12:13 Resp 30 H 09/17/20 12:00 BP 87/44 09/17/20 12:00 Pulse Ox 97 03/11/21 12:00 Intake & Output 09/16/20 09/17/20 09/17/20 18:59 06:59 18:59 Intake Total 971 900 119 Output Total 1155 875 912 Balance -184 25 -793 Weight 81.3 kg 76.8 kg Intake: IV 226 246 119 .9 NS 60 60 Cefepime 2 gm In Sodium 100 100 Chloride 0.9% 100 ml @ 25 mls/hr IVPB Q12HR [facility] Rx #:[id number] D5-0.45% NaCl with KCl 40 20Meq/l 1,000 ml @ 20 mls /hr IV .Q24H [facility] Rx#: [id number] DAPTOmycin 500 mg In 50 Sodium Chloride 0.9% 50 ml @ 100 mls/hr IVPB Q24HR [facility] Rx#:[id number] Pressure Bag 36 36 9 ceFAZolin 2 gm In Sodium 50 50 Chloride 0.9% 50 ml @ 100 mls/hr IVPB Q8HR [facility] Rx# :[id number] Tube Feeding 515 564 Other 230 90 Output: Drainage 50 20 3 RAHEEM #1. 0 3 RAHEEM #2 50 20 0 RAHEEM #3 0 0 Urine 1105 855 909 Other: Voiding Method Indwelling Catheter Indwelling Catheter Indwelling Catheter # Bowel Movements 1 1 ABP, PAP, CO, CI - Last Documented Arterial Blood Pressure 131/53 - Exam PHYSICAL EXAMINATION: Revealed a 75-year-old female, on pressure support mode of mechanical ventilation with CPAP. Awake, follows very simple instructions mostly blinking her eyes. HEENT:, PERRLA, EOMI, nonicteric.Moist mucous membranes tracheostomy is intact. And PEG tube is intact. CHEST EXAMINATION: Symmetrical chest expansion, fine crackles at the bases. HEART EXAMINATION normal S1 and S2, 2/6 systolic murmur thought the precordium. ABDOMEN: obese, Soft, nontender. Bowel sounds are heard. No organomegaly noted. PEG tube is noted. EXTREMITIES: Trace of bipedal edema, good pulses bilaterally. NEUROLOGIC EXAMINATION : Patient is awake, following minimal verbal instructions. Psychiatric not be assessed. Skin: No rashes , however the patient has supposedly a stage II sacral decubitus ulcer. She also has an abrasion on the right forearm. - Labs CBC & Chem 7: 09/17/20 04:00 09/17/20 04:00 Labs: Abnormal Lab Results - Last 24 Hours (Table) 09/16/20 09/17/20 09/17/20 Range/Units 17:45 04:00 04:00 WBC 15.5 H (3.8-10.6) k/uL RBC 2.79 L (3.80-5.40) m/uL Hgb 8.3 L (11.4-16.0) gm/dL Hct 25.3 L (34.0-46.0) % RDW 16.7 H (11.5-15.5) % Neutrophils # 10.0 H (1.3-7.7) k/uL ABG pH (7.35-7.45) ABG HCO3 (21-25) mmol/L ABG Total CO2 (19-24) mmol/L ABG O2 Saturation (94-97) % Carbon Dioxide 32 H (22-30) mmol/L BUN 32 H (7-17) mg/dL Glucose 129 H (74-99) mg/dL POC Glucose (mg/dL) 116 H (75-99) mg/dL Alkaline Phosphatase 145 H (38-126) U/L Albumin 2.9 L (3.5-5.0) g/dL 09/17/20 09/17/20 09/17/20 Range/Units 05:10 05:20 12:02 WBC (3.8-10.6) k/uL RBC (3.80-5.40) m/uL Hgb (11.4-16.0) gm/dL Hct (34.0-46.0) % RDW (11.5-15.5) % Neutrophils # (1.3-7.7) k/uL ABG pH 7.48 H (7.35-7.45) ABG HCO3 33 H (21-25) mmol/L ABG Total CO2 35 H (19-24) mmol/L ABG O2 Saturation 99.4 H (94-97) % Carbon Dioxide (22-30) mmol/L BUN (7-17) mg/dL Glucose (74-99) mg/dL POC Glucose (mg/dL) 122 H 119 H (75-99) mg/dL Alkaline Phosphatase (38-126) U/L Albumin (3.5-5.0) g/dL Assessment and Plan Assessment: Impression: Acute hypoxic and hypercapnic respiratory failure secondary to MSSA bacteremia, sepsis, septic shock, and sternal wound infection. Postoperative day #13, status post excision of sternal wound and muscle flap. Septic shock secondary to above, resolved. Acute kidney injury, resolved. Acute metabolic acidosis secondary to above, resolved. Acute diastolic congestive heart failure with bilateral pleural effusions, improved. Benign essential hypertension. History of severe cervical stenosis. Mild interstitial lung disease. 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 Status post sternal exploration and sternal wound debridement August 27. Acute metabolic encephalopathy, not improving, practically the same Failure to wean requiring tracheostomy and PEG tube placement. 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 Status post tracheostomy and PEG tube placement on 09/14/2020 Recommendation: Continue pressure support of 12 and CPAP of 5. Continue antibiotics as per infectious disease on the case. Continue tracheostomy and PEG tube Continue enteral feeding. Antibiotics as per infectious disease on the case. Continue diuretics as needed. Awaiting placement possibly LTAC. Time with Patient: Less than 30
--- NOTE | 2020-09-17 16:32 | P.PN ---
Subjective Progress Note Date: 09/17/20 Patient was seen for a follow-up. Patient is on no sedation. Patient underwent tracheostomy and PEG placement 09/14/2020. Patient today is much more alert and awake, and following some commands as per examination. Patient did not offer any complaints by nodding however. Objective - Vital Signs Vital signs: Vital Signs Temp 98.9 F 09/17/20 16:00 Pulse 103 H 09/17/20 16:00 Resp 26 H 09/17/20 16:00 BP 130/69 09/17/20 16:00 Pulse Ox 97 09/17/20 16:00 Intake & Output 09/16/20 09/17/20 09/17/20 18:59 06:59 18:59 Intake Total 971 900 268 Output Total 6342 135 0570 Balance -184 25 -1144 Weight 81.3 kg 76.8 kg Intake: IV 226 246 221 .9 NS 60 100 Cefepime 2 gm In Sodium 100 100 Chloride 0.9% 100 ml @ 25 mls/hr IVPB Q12HR [facility] Rx #:[id number] D5-0.45% NaCl with KCl 40 20Meq/l 1,000 ml @ 20 mls /hr IV .Q24H [facility] Rx#: [id number] DAPTOmycin 500 mg In 50 Sodium Chloride 0.9% 50 ml @ 100 mls/hr IVPB Q24HR [facility] Rx#:[id number] Pressure Bag 36 36 21 ceFAZolin 2 gm In Sodium 50 100 Chloride 0.9% 50 ml @ 100 mls/hr IVPB Q8HR [facility] Rx# :[id number] Tube Feeding 515 564 47 Other 230 90 Output: Drainage 50 20 3 RAHEEM #1. 0 3 RAHEEM #2 50 20 0 RAHEEM #3 0 0 Urine 7838 988 3924 Other: Voiding Method Indwelling Catheter Indwelling Catheter Indwelling Catheter # Bowel Movements 1 1 ABP, PAP, CO, CI - Last Documented Arterial Blood Pressure 143/55 - Exam 09/17/2020: Patient apparently much more alert and awake. Patient making eye contact, slightly track with her eyes. She clearly gave me a smile, when I asked her to smile, and her face was symmetric. Patient still moves her head [id number] almost like a bird. She moves her legs with internal and external rotation, extending her knees backwards, and appears to have good tone, no weakness of muscles. Patient able to lift her legs off the bed with mild resistance, uncertain if it was purposeful, or just her usual random movements. Patient continues to have brisk reflexes, very brisk 3+ in the right upper limb, 2+ left upper limb, 3 at the knees and bilateral Babinski. 09/16/2020: Essentially unchanged as 09/15/2020. 09/15/2020: Patient is alert and awake, but very encephalopathic. Eyes are open. Patient does not follow commands. Patient has tracheostomy in place. Pupils are round and reactive to light, face appears symmetric. Patient did not smile or protrude her tongue. Patient turns her head, slightly to one or the other side, almost like a bird. Sometimes she moves her legs one or the other en-blok, appears to have good muscle mass. At times, patient extends her legs. However patient is very spastic as per reflexes. Reflexes (right/left) biceps 3+/2, brachioradialis 3+/3+, knees 3/3, ankles are 1+, plantars are upgoing bilaterally. Sensory or cerebellar examination could not be tested. 09/14/2020: Patient sedated, therefore exam deferred. Just had undergone tracheostomy and PEG placement. 09/06/2020: Patient asleep, sedated, therefore detailed examination deferred. 09/05/2020: On examination patient is awake, opens her eyes, , sometimes tracks, the times not. Patient again smiled slightly to asking her to smile. Otherwise did not answer or nodded if she has pain anywhere, did not follow any commands regarding extremities. Very slight movement to painful stim with us on the right foot but not in the other 3 extremities. Patient was noted to have some rhythmic head movement [id number] and then she would have low amplitude slow bicycling type of activity in the arms and legs. No twitching, but was consistent for some time. Patient not even responding to her for following commands except for that she did turn her head and made eye contact with her . Did not tell if she is in pain anywhere. Her pupils are round and reacting. Visual lópez could not be tested. Face appears symmetric. She is on ventilator. No movement in the 4 extremities except for some rhythmic movement as above. - Labs CBC & Chem 7: 09/17/20 04:00 09/17/20 04:00 Labs: Abnormal Lab Results - Last 24 Hours (Table) 09/16/20 09/17/20 09/17/20 Range/Units 17:45 04:00 04:00 WBC 15.5 H (3.8-10.6) k/uL RBC 2.79 L (3.80-5.40) m/uL Hgb 8.3 L (11.4-16.0) gm/dL Hct 25.3 L (34.0-46.0) % RDW 16.7 H (11.5-15.5) % Neutrophils # 10.0 H (1.3-7.7) k/uL ABG pH (7.35-7.45) ABG HCO3 (21-25) mmol/L ABG Total CO2 (19-24) mmol/L ABG O2 Saturation (94-97) % Carbon Dioxide 32 H (22-30) mmol/L BUN 32 H (7-17) mg/dL Glucose 129 H (74-99) mg/dL POC Glucose (mg/dL) 116 H (75-99) mg/dL Alkaline Phosphatase 145 H (38-126) U/L Albumin 2.9 L (3.5-5.0) g/dL 09/17/20 09/17/20 09/17/20 Range/Units 05:10 05:20 12:02 WBC (3.8-10.6) k/uL RBC (3.80-5.40) m/uL Hgb (11.4-16.0) gm/dL Hct (34.0-46.0) % RDW (11.5-15.5) % Neutrophils # (1.3-7.7) k/uL ABG pH 7.48 H (7.35-7.45) ABG HCO3 33 H (21-25) mmol/L ABG Total CO2 35 H (19-24) mmol/L ABG O2 Saturation 99.4 H (94-97) % Carbon Dioxide (22-30) mmol/L BUN (7-17) mg/dL Glucose (74-99) mg/dL POC Glucose (mg/dL) 122 H 119 H (75-99) mg/dL Alkaline Phosphatase (38-126) U/L Albumin (3.5-5.0) g/dL Assessment and Plan Assessment: * Patient has developed quadriparesis, but now seems to be improving, with r estless type movements mainly of the lower extremities. Her tone in the legs appears to be normal at times, and movements appear sometimes purposeful. Patient still very weak in the upper extremities bilaterally. Very minimal movement noted in the left biceps. Patient continues to be spastic with bilateral Babinski. Rule out myelomalacia due to spinal stenosis, transverse myelitis or other cord abnormality. CT of the cervical and thoracic spine with IV contrast showed no evidence of discitis osteomyelitis. No evidence of critical illness neuropathy or myopathy. 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 Improved. Blood cultures negative since 09/01/2020. * Status post CABG, followed by wound infection, requiring sternal debridement with persistent sepsis. Status post placement of muscle flap. * Status post Septic shock with MSSA * Acute kidney injury, resolved * Acute transaminitis, resolved * Anemia * CHF * Hypertension * History of cervical fusion, spinal stenosis in the past. Plan: * Patient appears to be better mentally, following some commands, tracking with her eyes, smiled. She continues to be much weaker in the arms as compared to the legs. She moves her legs randomly (low amplitude) at the level of hip and the knees. The tone appears normal or perhaps slightly increased. Consider MRI of the brain and cervical spine, when able to be performed. * EEG 09/05/2020, which was abnormal due to background slowing of moderate to severe degree. This is suggestive of generalized cerebral dysfunction as can be seen with toxic metabolic encephalopathy or related to diffuse structural brain abnormality. No epileptiform activity was seen. No indication for antiepileptic medication. * Patient continues to be encephalopathic, due to toxic metabolic encephalopathy. * Appreciate Orthopedic spine input. Hardware in the cervical spine is stable. No loosening. * CPK 74, TSH 1.87, aldolase 8.4 (1.2 to 7.6). * Anemia, improved. CT abdomen and pelvis negative. * Patient being considered for transfer to long-term care facility in a.m. * Discussed with nursing detail.
[2020-09-17] MEDS ORDERED: FLUCONAZOLE 100 MG TAB PO ONE (17:35)
[2020-09-17 18:08] LABS: Glucose,Whole Blood 127 mg/dL (75-99)
--- NOTE | 2020-09-17 18:40 | PN ---
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 INTERVAL HISTORY: The patient is currently afebrile. The patient is hemodynamically stable, not on any pressor support. FiO2 is currently stable at 35%. The patient has spontaneous opening of the eyes, but no meaningful recovery. No significant diarrhea has been reported. PHYSICAL EXAMINATION: Her blood pressure is 148/55 with a pulse of 106, temperature 98.9. She is 97% on 35% FiO2. General description is an elderly female lying in bed in no distress. RESPIRATORY SYSTEM: Unlabored breathing with decreased breath sounds at the base. No wheeze. HEART: S1, S2. Regular rate and rhythm. ABDOMEN: Soft. No tenderness. LABS: White count 15,000. DIAGNOSTIC IMPRESSION AND PLAN: 1. 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 Currently on cefazolin. Follow-up blood culture has been negative. 2. Patient with elevated white count, possibly reactive, or could be related to oropharyngeal candidiasis. Will see response to a trial of the Diflucan and continue with supportive care. MMODL / IJN: [id number] / MTDD
--- NOTE | 2020-09-17 19:22 | P.PN ---
Progress Note - Text Progress Note Date: 09/17/20 Patient remains awake on the ventilator. She is tolerating her tube feeds at goal. No obvious discomfort. Abdomen: Soft, nondistended, PEG tube site clean with minimal tenderness, bolster loosened by 1 cm Continue tube feeds at goal. We'll sign off. Please call if needed.
[2020-09-17] MEDS: MELATONIN 3 MG TABLET PO SCH (20:11)
[2020-09-18 00:30] LABS: Glucose,Whole Blood 141 mg/dL (75-99)
[2020-09-18] MEDS: INSULIN ASPART (NovoLOG) 100 UNIT/ML VIAL SQ SCH ×3 (01:08→11:58)
[2020-09-18] MEDS: HEPARIN SODIUM,PORCINE 5,000 UNIT/ML 1 ML VIAL SQ SCH ×2 (01:08→08:57)
[2020-09-18 05:12] LABS: ABG Base Excess 12.9 mmol/L; ABG HCO3 36 mmol/L (21-25); ABG Oxygen Saturation 99.6 % (94-97); ABG PCO2 43 mmHg (35-45); ABG PH 7.53 (7.35-7.45); ABG PO2 102 mmHg (83-108); ABG TCO2 37 mmol/L (19-24); Allen Test Performed? Yes
[2020-09-18 05:22] LABS: Anisocytosis Slight; Basophils # (A) 0.1 k/uL (0-0.2); Basophils % (A) 1 %; Eosinophils # (A) 0.6 k/uL (0-0.7); Eosinophils % (A) 4 %; HCT 25.7 % (34.0-46.0); HGB 8.2 gm/dL (11.4-16.0); Hypochromasia Moderate; Lymphocytes # (A) 3.8 k/uL (1.0-4.8); Lymphocytes % (A) 25 %; MCH 29.2 pg (25.0-35.0); MCV 91.2 fL (80.0-100.0); Mean Platelet Volume 8.2; Monocytes # (A) 0.8 k/uL (0-1.0); Monocytes % (A) 5 %; Neutrophils # (A) 9.7 k/uL (1.3-7.7); Neutrophils % (A) 64 %; Platelet Count 423 k/uL (150-450); Poikilocytosis Slight; RBC 2.82 m/uL (3.80-5.40); RDW 16.7 % (11.5-15.5); WBC 15.3 k/uL (3.8-10.6)
[2020-09-18 05:50] LABS: African American GFR (CKD) >90 (>60 ml/min/1.73 sqM); Anion Gap 7 mmol/L; Blood Urea Nitrogen 35 mg/dL (7-17); Calcium 9.2 mg/dL (8.4-10.2); Carbon Dioxide 33 mmol/L (22-30); Chloride 105 mmol/L (98-107); Glucose 121 mg/dL (74-99); Magnesium 1.8 mg/dL (1.6-2.3); Non-African American GFR(CKD) 86 (>60 ml/min/1.73 sqM); Potassium 3.8 mmol/L (3.5-5.1); Sodium 145 mmol/L (137-145)
[2020-09-18 06:01] LABS: Glucose,Whole Blood 138 mg/dL (75-99)
[2020-09-18] MEDS: MAGNESIUM SULFATE-D5W PMX 1 GM in DEXTROSE/WATER 1 100ML.BAG IVPB SCH ×2 (06:38→08:57)
[2020-09-18] MEDS ORDERED: POTASSIUM BICARBONATE/CIT AC 20 MEQ TABLET.EFF PO ONE (07:00)
[2020-09-18 07:02] VITALS: TEMP 100
--- NOTE | 2020-09-18 07:03 | P.PN ---
Subjective Progress Note Date: 09/18/20 Principal diagnosis: Shortness of breath, acute diastolic heart failure, bilateral pleural effusion, lactic acidosis, hypercapnic respiratory failure requiring BiPAP followed by ar chanical ventilation, deep sternal wound infection with MSSA, acute kidney injury, acute hyperkalemia, hyponatremia, acute transaminitis, hypotension requiring vasopressors use, acute anemia. Previous medical history of coronary artery disease with left main stenosis status post 2 vessel CABG on 08/10/2020 with expected postoperative acute blood loss anemia, hypotension, and urinary retention as well as candidal stomatititus, hyponatremia, pulmonary fibrosis, asthma, hypertension, hyperlipidemia, previous tobacco dependence, obesity, osteoarthritis, cervical stenosis post anterior cervical disc decompression, discectomy and fusion, TIA as a child, family history of premature coronary artery disease. Paroxysmal Afib w/ RVR POD #21 sternal exploration with sternal debridement, subsequent wound VAC placement POD #15 removal of cable and partial resection of the manubrium as well as part ial sternotomy by Dr. Sethi; right pectoralis major myocutaneous flap, left pectoralis major myocutaneous flap by Dr. Thomas POD #4 status post tracheostomy tube placement POD #4 EGD with PEG tube placement The patient was seen and examined at the bedside in the ICU. Remains off sedation, mechanically ventilated but with spontaneous breathing for the last 48 hours, FiO2 35%, pressure support 12, PEEP 5. She is opening her eyes and occasionally tracking, withdraws from painful stimuli x all 4 extremities, moving bilateral lower extremities. She is not following commands as consistently as yesterday. T-max 99.6 in the last 24 hours, WBC 15.3, all cultures since 09/01/2020 have been negative. Patient continues on IV ancef per infectious disease, diflucan added due to increased WBC. Currently in NSR with HR in the low 100s. Blood pressure stable. BUN 35, creatinine 0.7. Hemoglobin 8.2 this morning. Tube feeds continue at goal, tolerating well. Daughter Roberta updated by phone yesterday, she does have some questions for social work regarding LTAC. Insurance authorization has been initiated for LTAC. Objective - Vital Signs Vital signs: Vital Signs Temp 99.3 F 09/18/20 04:00 Pulse 113 H 09/18/20 06:00 Resp 23 09/18/20 06:00 BP 123/58 09/18/20 06:00 Pulse Ox 96 09/18/20 06:00 Intake & Output 09/17/20 09/17/20 09/18/20 06:59 18:59 06:59 Intake Total 900 345 787 Output Total 875 1664 480 Balance 25 -1319 307 Weight 76.8 kg Intake: IV 246 251 180 .9 NS 60 130 100 Cefepime 2 gm In Sodium 100 Chloride 0.9% 100 ml @ 25 mls/hr IVPB Q12HR [facility] Rx #:[id number] Pressure Bag 36 21 30 ceFAZolin 2 gm In Sodium 50 100 50 Chloride 0.9% 50 ml @ 100 mls/hr IVPB Q8HR [facility] Rx# :[id number] Tube Feeding 564 94 517 Other 90 90 Output: Drainage 20 3 RAHEEM #1. 3 RAHEEM #2 20 0 RAHEEM #3 0 Urine 855 1661 480 Other: Voiding Method Indwelling Catheter Indwelling Catheter Indwelling Catheter # Bowel Movements 1 1 1 ABP, PAP, CO, CI - Last Documented Arterial Blood Pressure 142/54 - Constitutional Constitutional Comment(s): Appears comfortable General appearance: Present: cooperative, no acute distress - Respiratory Details: Lungs sounds diminished bilaterally. Respirations even, nonlabored on mechanical ventilation. Current ventilator settings spontaneous breathing with FiO2 35%, pressure support 12 with a PEEP 5. ABGs on those settings 7 .53/43/102/36/99%. #8 fenestrated Shiley trach is midline and intact. - Cardiovascular Details: S1, S2 present. Regular rate and rhythm, sinus rhythm to sinus tach with heart rate in the high 90s to low 100s. Palpable peripheral pulses bilaterally. Trace generalized edema present. Heart hugger, antiembolism stockings, SCDs present. Right arm PICC line, right brachial arterial line present. - Gastrointestinal Gastrointestinal Comment(s): Abdomen soft, nontender, nondistended. Active bowel sounds present in 4 quadrants. PEG tube present to left upper quadrant with tube feeding infusing at goal. Positive BM x 3 in the last 24 hours - Genitourinary Genitourinary Comment(s): Yu present draining clear, yellow urine. Output 30-50 mL per hour overnight, 2141 mL in the last 24 hours - Integumentary Integumentary Comment(s): Skin is warm and dry. Anterior chest incision well approximated, franc present and intact. 2 RAHEEM drains present with minimal drainage in RAHEEM #1, 50 mL drainage in RAHEEM#2 in the last 24 hours - Neurologic Neurologic Comment(s): Awake and alert with eyes open, occasional tracking. Withdraws to painful stimuli to upper extremities, moving bilateral lower extremities independently - Musculoskeletal Musculoskeletal: Present: generalized weakness - Allied health notes Allied health notes reviewed: nursing - Labs CBC & Chem 7: 09/18/20 04:55 09/18/20 04:55 Labs: Abnormal Lab Results - Last 24 Hours (Table) 09/17/20 09/17/20 09/18/20 Range/Units 12:02 18:01 00:27 WBC (3.8-10.6) k/uL RBC (3.80-5.40) m/uL Hgb (11.4-16.0) gm/dL Hct (34.0-46.0) % RDW (11.5-15.5) % Neutrophils # (1.3-7.7) k/uL ABG pH (7.35-7.45) ABG HCO3 (21-25) mmol/L ABG Total CO2 (19-24) mmol/L ABG O2 Saturation (94-97) % Carbon Dioxide (22-30) mmol/L BUN (7-17) mg/dL Glucose (74-99) mg/dL POC Glucose (mg/dL) 119 H 127 H 141 H (75-99) mg/dL 09/18/20 09/18/20 09/18/20 Range/Units 04:55 04:55 05:10 WBC 15.3 H (3.8-10.6) k/uL RBC 2.82 L (3.80-5.40) m/uL Hgb 8.2 L (11.4-16.0) gm/dL Hct 25.7 L (34.0-46.0) % RDW 16.7 H (11.5-15.5) % Neutrophils # 9.7 H (1.3-7.7) k/uL ABG pH 7.53 H (7.35-7.45) ABG HCO3 36 H (21-25) mmol/L ABG Total CO2 37 H (19-24) mmol/L ABG O2 Saturation 99.6 H (94-97) % Carbon Dioxide 33 H (22-30) mmol/L BUN 35 H (7-17) mg/dL Glucose 121 H (74-99) mg/dL POC Glucose (mg/dL) (75-99) mg/dL 09/18/20 Range/Units 06:00 WBC (3.8-10.6) k/uL RBC (3.80-5.40) m/uL Hgb (11.4-16.0) gm/dL Hct (34.0-46.0) % RDW (11.5-15.5) % Neutrophils # (1.3-7.7) k/uL ABG pH (7.35-7.45) ABG HCO3 (21-25) mmol/L ABG Total CO2 (19-24) mmol/L ABG O2 Saturation (94-97) % Carbon Dioxide (22-30) mmol/L BUN (7-17) mg/dL Glucose (74-99) mg/dL POC Glucose (mg/dL) 138 H (75-99) mg/dL - Imaging and Cardiology Chest x-ray: image reviewed Assessment and Plan Assessment: 1. Shortness of breath, acute diastolic heart failure, EF 55-60% on current TTE, bilateral pleural effusions 2. Lactic acidosis, septic shock, blood cultures positive for MSSA, resolved 3. Hypercapnic, hypoxic respiratory failure requiring BiPAP, with subsequent intubation and mechanical ventilation, status post tracheostomy placement 4. Open sternal wound, surgically created, deep sternal wound infection with MSSA, S/P surgical exploration and debridement, wound VAC placement, subsequent removal of cable and partial resection of the manubrium as well as partial sternotomy and myocutaneous flap closure 5. Leukocytosis with bandemia, bandemia resolved 6. Acute kidney injury, metabolic acidosis, resolved 7. Acute hyperkalemia, resolved 8. Acute transaminitis secondary to hypoperfusion, resolved 9. History of hypertension, hypotensive this admission requiring vasopressors, resolved 10. Acute anemia, post transfusion PRBCs, on 11. Coronary artery disease with left main stenosis status post 2 vessel CABG on 08/10/2020 with expected postoperative acute blood loss anemia, hypotension, and urinary retention as well as candidal stomatititus 12. Hyponatremia, resolved 13. Pulmonary fibrosis, asthma 14. Hyperlipidemia, treated 15. Previous tobacco dependence 16. Obesity 17. 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 Malnutrition, status post EGD with PEG tube placement Plan: 1. Ventilator management per pulmonary medicine. Continue to CPAP as tolerated, hopeful for trach collar soon 2. Nephrology following, avoid nephrotoxins. Daily IV Lasix 3. Infectious disease following, final blood cultures/sternal wound cultures positive for MSSA, most recent cultures all negative. Continues on Ancef, started on diflucan 4. Continue aspirin, statin, Plavix, beta sisi therapy. Increase beta sisi as tolerated 5. No anticoagulation necessary 6. Will monitor daily labs and x-rays, ABGs. Electrolyte replacement per protocol, potassium and magnesium being replaced today 7. Neurology following for critical illness myopathy, appreciate PT/OT evaluation and treatment 8. GI/DVT prophylaxis 9. Continue tube feeding for nutrition 10. Will DC RAHEEM #1. RAHEEM#2 to remain until drainage less than 30mL in 24 hours x 2 days in a row 11. Will update family daily 12. More recommendations to follow. May go to long-term acute care when okay with liquid sugar fortifier from our standpoint when bed available and insurance authorization obtained Time with Patient: Greater than 30
--- NOTE | 2020-09-18 07:42 | XR ---
EXAMINATION TYPE: XR chest 1V portable DATE OF EXAM: 09/18/2020 COMPARISON: Chest x-ray 09/17/2020 HISTORY: Respiratory failure TECHNIQUE: Single frontal view of the chest is obtained. FINDINGS: There is been interval removal of the left-sided chest drain. There may be some interval i mproved aeration at the lung bases, improvement in lung volume. No pneumothorax. Postprocedural matias es are again seen, there are overlying artifacts. IMPRESSION: Suspect some improvement in aeration.
[2020-09-18] MEDS: PANTOPRAZOLE 40 MG/10 ML VIAL IVP SCH (08:56)
[2020-09-18] MEDS: ASPIRIN 325 MG TAB PO SCH (08:57)
[2020-09-18] MEDS: DRY MOUTH SPRAY 44.3 SPRAY/44.3 ML SPRAY MUCOUS MEM SCH (08:57)
[2020-09-18] MEDS: CLOPIDOGREL 75 MG TAB PO SCH (08:57)
[2020-09-18] MEDS: FUROSEMIDE 10 MG/ML 4 ML VIAL IV SCH (08:57)
[2020-09-18] MEDS: CHLORHEXIDINE GLUCONATE 15 ML CUP MUCOUS MEM SCH (08:57)
[2020-09-18] MEDS: ATORVASTATIN 40 MG TAB PEG/G-TUBE SCH (08:57)
[2020-09-18] MEDS: METOPROLOL TARTRATE 25 MG TAB PO SCH (08:57)
[2020-09-18] MEDS ORDERED: FLUCONAZOLE 100 MG TAB PO SCH (09:00)
[2020-09-18] MEDS: IPRATROPIUM-ALBUTEROL 3 ML NEB INHALATION SCH ×2 (09:43→11:45)
[2020-09-18 10:48] VITALS: BMI 33.4
--- NOTE | 2020-09-18 10:57 | P.DS ---
Providers Date of admission: 08/22/20 23:29 Expected date of discharge: 09/18/20 Attending physician: Monica Dubois Consults: 08/22/20 23:24 Consult Physician Urgent Consulting Provider: Hoang Graves Consult Reason/Comments: CHF Do you want consulting provider notified?: Yes 08/22/20 23:25 Consult Physician Urgent Consulting Provider: Epifanio Olivera Consult Reason/Comments: CHF, s/p CABG Do you want consulting provider notified?: Yes 08/23/20 12:02 Consult Physician Routine Consulting Provider: Ramon Gamboa Consult Reason/Comments: hypoxemia pleural effusion chf Do you want consulting provider notified?: Yes 08/24/20 05:24 Consult Physician Stat Consulting Provider: Angel Luis Duke Consult Reason/Comments: Elevated K+ With elevated BUN & Creat Do you want consulting provider notified?: Yes 08/24/20 05:26 Consult Physician Stat Consulting Provider: Darryn Mcintyre Consult Reason/Comments: sepsis, lactic 7.6 Do you want consulting provider notified?: Yes 08/24/20 08:56 Consult Physician Stat Consulting Provider: Benedicto Haynes Consult Reason/Comments: temporary dialysis catheter Do you want consulting provider notified?: Yes 08/31/20 06:34 Consult Physician Routine Consulting Provider: Chung Whittaker Consult Reason/Comments: muscle flap closure chest post cabg Do you want consulting provider notified?: Yes 09/02/20 12:37 Consult Physician Urgent Consulting Provider: Vani Simmons Consult Reason/Comments: critical illness Do you want consulting provider notified?: Yes 09/02/20 16:29 Consult Physician Urgent Consulting Provider: Agustin Yuan Consult Reason/Comments: previous cervical surgeries Do you want consulting provider notified?: Yes 09/12/20 11:27 Consult Physician Routine Consulting Provider: Bryan Oscar Consult Reason/Comments: PEG tube placement for MondaySeptember 14/2021 Do you want consulting provider notified?: Yes Primary care physician: Rich Avila [facility] Course: HISTORY OF PRESENT ILLNESS This is a 75-year-old female patient of Dr. Rich Avila, Dr. Solan and Dr. Guadalupe. She has a past medical history significant for hypertension, hyperlipidemia, pulmonary fibrosis, asthma, obesity, remote history of tobacco dependence with smoking 32 years ago, osteoarthritis, cervical stenosis post anterior cervical decompression, discectomy and fusion, TIA as a child at age 11 and family history of premature coronary artery disease with her father being diagnosed in his early 50s. Recently, the patient has been experiencing episodes of shortness of breath over the past 6 months with just minimal activity. She also complained of some lower extremity swelling which did resolve with some diuresis. she underwent a stress test which showed anterior wall ischemia with small reversible defect. a 2-D echocardiogram which showed mild aortic valve insufficiency, mild mitral valve regurgitation, mild tricuspid valve regurgitation and left ventricular function to be normal with an ejection fraction of 55%. Subsequently she underwent an elective heart catheterization on 07/27/2020 which demonstrated a left main stenosis with QING with a calculation of 2.6 mm, a 40% stenosis to her mid left anterior descending coronary artery and a 30% stenosis to her right coronary artery. Due to the patient's symptoms and findings on her heart catheterization of left main stenosis a consult was placed to Dr. Sethi from cardiothoracic surgery for further evaluation and treatment recommendations. During her preoperative workup her serum sodium level was found to be 120 and was admitted prior to surgery for treatment of hyponatremia. Last admission On 08/06/2020-08/19/20 the patient was admitted to the hospital for treatment of her hyponatremia, and once her hyponatremia was resolved on 08/10/2020, asubsequently taken to the operating room where Dr. Sethi performed a double vessel coronary artery bypass grafting surgery using the left internal mammary artery to left anterior setting coronary artery, a reverse greater saphenous vein graft from the aorta to the first obtuse marginal coronary artery, endoscopic harvesting of the left greater saphenous vein from the groin Upon completion of the surgery the patient was transferred to the intensive care unit where she was recovered, monitored hemodynamically and where she progressed cardiac rehabilitation phase Her oxygen was titrated down, she continued to work with physical/occupational therapy and cardiac rehabilitation, she was tolerating an oral diet, her pain was well controlled without narcotics and she was ready to be discharged home with [facility] care on postoperative day #9. Did not require home O2 on last admission however she required new medication changes including diuretics during that last admission. Patient comes in in worsening shortness of breath anasarca, no chest pain, has BARKER, edma without leg pain new medications from last visit was compliant, requir ing lipitor 75bid, tolvaptan. meotprolol 75 bid plavix, lasix 40 mg daily losartain 25 asa 325, ferrous sulfate and fluconazole. patient comes in now for CHF, anarsarc ely pleural effusion, consult with dr Sethi. and cardiology, if okay will be cardiothoracic surgeon can also perform the thoracentesis, however with hypoxemia, also have requested Dr. Gamboa's services. Patient has a hemoglobin of 7.0 on and 3, platelet count of 305, hemoglobin right to admission was 8.0 denies any Hemoccult stools, creatinine was 1.60 from a previous of 0.9 blood pressure is in the low 90s systolic, pulse ox, 90 on 4 L nasal cannula, patient was not discharged with home O2 during her last admission 08/24: A-Team was called for mental status changes. Patient was found to have a blood pressure 99/65, heart rate of 85 and pulse ox of 96% on a nonrebreather with respiratory rate of 32. Patient was transferred to the ICU. She was started on vancomycin and cefepime. Patient has been seen by cardiology with plan to continue vasopressor support, patient may need pleurocentesis. Stat echocardiogram was done to rule out pericardial effusion or tamponade. Patient has been seen by nephrology for acute kidney injury secondary to ATN secondary to hypotension and cardiorenal syndrome. Patient is currently on bicarb drip, status post Lasix 80 mg IV once. Renal replacement therapy to be initiated imm ediately. Vascular consult in place for a dialysis catheter placement and start hemodialysis today with second treatment tomorrow. Sternal wound was producing thick yellowish brown fluid, was opened approximately 2 cm and deep culture was taken, packed and covered with 4 x 4 dressing. She is requiring vasopressors. She is hypothermic and warming blanket is in place.Patient had minimal output yesterday and none today. She is status post 2.5 L of fluids. 08/25 patient was examined in the ICU. She was able to maintain oxygenation on BiPAP overnight switch to high flow 15 m this morning. Patient did have episodes of agitation last night and was started on Seroquel. She did receive a dose of Seroquel prior to admission and was found to be resting comfortably. Patient is off pressors and bicarbonate drip and metabolic acidosis seemed to have cleared off. On evaluation of patient's lab, WBC is 14.3, hemoglobin 6.5 platelet 208 ABG this morning has a pH of 7.47 CO2 74. Bicarb 29. Sodium has improved to 126 chloride 96 BUN 43 creatinine 2.79 lactic acid has improved to 2.9 calcium 7 liver enzymes elevated AST at 2874 ALT 1469 alkaline phosphatase 192 CRP 356 BNP 13,000 UA does suggest some infection with WBC of 88 hyaline casts 33 protein 2+ urine blood trace nitrite negative leukocyte Estrace negative. Wound cultures positive for presumptive staph aureus. Patient's blood culture from yesterday are positive with presumptive staph aureus. Repeat blood cultures ordered. Patient received 1 unit of PRBCs for low hemoglobin. Urine output has improved to 20-40 mL's per hour. Patient did receive a dose of DDAVP for hyponatremia. Normal saline is running at 50 mL per hour. Did receive hemodialysis today with 2 L ultrafiltration. Patient was also noted to be in A. fib with RVR intermittently and her dose of Lopressor was increased to 25 mg every 8 hours. Continue daptomycin and cefepime for antibiotic coverage. Monitor patient's for QTC prolongation well on Seroquel. Patient has significant dehiscence of wound and may need I&D 08/26: She was intubated and placed on mechanical ventilation overnight with pulse ox of 96%, tidal volume 450, FiO2 50, PEEP of 5. Temperature max last evening was 101.2. Heart rate 82, blood pressure 120/53. WBC 9.6, hemoglobin 10.8, platelet count 159. Sodium 134, potassium 4.7, chloride 100, CO2 25, BUN 14 creatinine 1.83. Blood sugars running between 100 2753. Total bilirubin 3.3, AST 1067, ALT 993, alkaline phosphatase 251. Magnesium 2.1. Patient is on vasopressors. quality assurance monitor final atrial flutter alternating with sinus rhythm. Patient is also on propofol and Seroquel discontinued. Thoracic surgery is possible taking her to or for I&D and considering wound VAC. Patient is on Plavix. Echocardiogram reveals normal LV function and mild aortic stenosis. Patient is currently on daptomycin and cefepime per Dr. Mcintyre. Urine output remains low at 15-20 mL per hour. Should she is scheduled for third hemod ialysis treatment today. Patient is scheduled for Lasix 80 mg IV this afternoon. 08/27 she remains in the ICU, intubated and mechanically ventilated. Patient is going to the OR for debridement today. Patient remains intubated on 50% FiO2 and PEEP of 5, assist control rate of 20volume 450. Continues to require Levophed at 11mcg/ hr . Blood clots and culture positive for MSSA. Urine output is 50-60 mL per hour. Patient continues to be on sedation from propofol at 50 max per KG permanent. IV fluids at KVO. Patient continues to have good urine output after a dose of 80 mg of IV Lasix today. Vision tolerated 2.5 L ultrafiltration yesterday and is started on hemodialysis on August 24. No holiday sedation today. Plan to continue Lasix 80 IV once daily and holding hemodialysis. Anticoagulation held for debridement. 08/28 patient remains in the ICU. Did have sternal Exploration and debridement yesterday remains sedated on propofol. Patient continues to have high temp of 101.6, to 233 tachycardic 111 blood pressure 106/51 oxygen saturation 95% on 50% FiO2. Labs suggest a leukocytosis of 24.3 hemoglobin stable at 10.7 platelet count has dipped dropped to 78, he really suggest a pH of 7.53 pCO2 30 PaO2 57, chloride of 110 potassium 3.5 and anion gap of 6 BUN 46 creatinine 0.9 calcium 7.8 ALT 3:15 alkaline phosphatase 312 AST 112 blood cultures from 08/26 positive for staph aureus. Urine output 1.2 L in 24 hours Repeat blood cultures sent today. Patient continues to be normal sinus rhythm not currently on any anticoagulation at the possibility of going for another debridement. Patient's continues to be on levo fed and still stays intubated. Continue IV Lasix. Patient initiated on IV Lasix 08/29: Patient remain in the ICU, remain on mechanical ventilation, sternal exploration and debridement was done and still have packing area within open wound at this point. Oxygenation is better patient is not 3 to be off vent at this point. Her urine output has been good and hemodynamically stable. 08/30: Patient still on mechanical ventilation, his sternum 1 and was changed today still have significant amount of infection and pus was packed still open. Patient remain on nafcillin and Moni mycin. Still having positive blood culture. 08/31: Patient is more awake today doing trial of weaning parameter try to get patient off the respirator, her incision and infection along the sternum is no change still have packing on still on IV antibiotics. Hemodynamically is more stable. 09/01: Patient evaluated in the ICU, continues on mechanical ventilation. Wound packing was removed yesterday, purulence was noted on the packing, deep near the heart and purulence around the heart. She continues on IV clindamycin and nafcillin. Patient was taken off sedation yesterday for a trial of weaning, but she became hypertensive and tachypneic so she is placed back on sedation. 09/02: Patient remains intubated and on mechanical ventilation with tidal volume 400, FiO2 of 50% and PEEP of 5. Patient has been off sedation since Monday. She is receiving OG tube feedings. She appears to be opening meaning her eyes and can shake her head. Otherwise not moving extremities. She has a wound VAC in place to the sternal wound. Wound cultures and blood culture positive for MSSA. She is scheduled for sternal wound excision and debridement with flap reconstruction and graft tomorrow with Dr. Whittaker. Repeat blood work reveals WBC of 13.6, hemoglobin 8.5. BUN 66 and creatinine 1.62, potassium 3.2 and has been replaced, blood sugars running between 107 and 132. Because renal functioning is worsening, nephrology has recommended holding nafcillin. Repeat chest x-ray reveals correlate for pneumonia, edema, ARDS. 09/03: She remains in the intensive care unit intubated and on mechanical ventilation with tidal volume 400, FiO2 40, PEEP of 5. Patient is awake with eyes open. She nodded her head no to having pain. She had a temperature this morning of 101.6 at 6 AM. Antibiotics are currently in the form of Kefzol. Repeat chest x-ray was done this morning and report is pending. Patient has been seen by neurology and doubt critical illness neuropathy. CAT scan of the brain and cervical spine done that showed no acute fracture or dislocation in the cervical spine. No acute intracranial hemorrhage, mass effect or midline shift. Ongoing airspace disease. Cardiology has recommended reinitiating statin. Temperature max 101.6, heart rate 101, blood pressure 117/52, pulse ox 95%. Repeat blood work reveals WBC 15.4, hemoglobin 8.3, platelet count 243. Sodium 149, potassium 2.8, chloride 111, CO2 28, BUN 66 and creatinine 1.49. Total bilirubin 2.4, AST 43, ALT 33 and alkaline phosphatase 260. All previous blood cultures have been positive for staph aureus MSSA. A repeat blood culture on August 2029 showing no growth at 24 hours. 09/04: Yesterday, patient underwent excision of sternal wound, partial sternotomy and pectoralis flap procedure. This morning, patient had new lines done by pulmonary medicine. Dr. Mcintyre has recommended continuing Kefzol and repeat blood cultures are in progress. Repeat chest x-ray reveals rotated exam, findings similar to prior, correlate for edema, pneumonia, ARDS. Cardiothoracic surgeryhas ordered a consult with Dr. Yuan. He has evaluated patient for global weakness and does not think she has new cervical spine issues that would cause her global weakness.patient continues to have fever with temperature maximum 102.2, tachycardic in the low 100s, respiratory rate 30, blood pressure 103/60, pulse ox 98%. She remains intubated and on mechanical ventilation with tidal volume 400, FiO2 50, PEEP of 5. WBC 17.5, hemoglobin 7.2, platelet count 328. Sodium 149, potassium 3.8, chloride 115, CO2 26, BUN 59 and creatinine 1.37. Blood sugars running 129-144. Magnesium 2.6. Total bilirubin 2.0, AST 39, alkaline phosphatase 197, ALT 19.. sputum culture has been obtained. Most recent blood culture from September 02 showing no growth at 24 hours and blood culture from September 01 is no growth at 48 hours. Patient is currently on very minimal sedation. 09/05: Patient remains in the ICU, intubated and on mechanical ventilation with tidal volume 400, FI02 40% and peep 5. Patient continues to run fevers. Dr. Mcintyre has changed antibiotics to cefepime and daptomycin. Blood cultures dated September 01, , are showing no growth. Sputum culture is in process. quality assurance monitor final sinus tachycardia. Heart rate has been running between 108 and 121, respiratory rate 31, blood pressure 90/32, pulse ox 98%. She remains on low dose norepinephrine. Patient is off sedation with eyes open. She is not moving extremities. She has been evaluated by orthopedic spine and spinal etiology has essentially been ruled out. Patient is also been evaluated by neurology and critical care neuropathy has also been essentially ruled out. Patient stabilized, hopefully a MRI can be performed. WBC 13.4, hemoglobin 5.4 and this was rechecked, platelet count 313, sodium 152, potassium 3.6, BUN 45 and creatinine 1.2. Patient is receiving 1 unit of packed RBCs. Nephrology is continuing IV Lasix 40 mg daily. Patient is on PEG tube feedings and tolerating. 09/06: Patient remains in intensive care unit. She is intubated and on mechanical ventilation with tidal volume 400, FiO2 40, PEEP 5. The patient has her eyes open, she is responsive with facial movement, she is able to minimally move lower extremities. She has a fecal management system in place as well as Yu catheter with good urine output. Patient was running fevers yesterday until evening. Patient has been afebrile following a reading of 1800 last night of 100.9. She is on IV antibiotics with cefepime and daptomycin. Heart rate 95-112, respiratory rate 28. Repeat chest x-ray reveals cardiomegaly with increased alveolar and interstitial edema and/or infiltrates bilaterally remain present. Possible ARDS. Hemoglobin today is at 8 status post She is continued on IV Lasix per nephrology. Potassium replaced. W BC 10.6, platelet count 276. Sodium 150, potassium 3.6, chloride 119, CO2 24, BUN 42 and creatinine 1.03. Blood sugar 140. Patient is receiving tube feedings at goal rate. 09/07: She remains in the intensive care unit, intubated and on mechanical ventilation with FiO2 of 40%, PEEP of 5. She remains off sedation and is awake and able to follow some minimal commands. Mature max 101.6, heart rate 104, respiratory rate 34, blood pressure 81/30, pulse ox 97%. AP blood work reveals WBC 11.8, hemoglobin 9.5, platelet count 347. Sodium 148, potassium 3.7, chloride 117, CO2 25, BUN 38 and creatinine 0.96. Blood sugar running between 112 117. Magnesium 2.0. Total bilirubin 1.5, AST 41, ALT 19, alkaline phosphatase 181. Albumin 2.4. Blood cultures on every remain without growth at 120 hours. Sputum culture has been finalized no growth. Patient is continued on cefepime and optimizing. PICC line is being inserted this morning by interventional radiology. OG tube with feedings at goal. Patient is not currently on vasopressors. 09/08: Patient remains in the intensive care unit intubated and on mechanical ventilation with tidal volume 400, FiO2 35 and PEEP of 5. Patient was on CPAP yesterday for about 8 hours but was unable to tolerate for only short period today. Her mental status has been labile. She is intermittently following commands with no response and staring. Patient appears to be uncomfortable. Generalized anasarca noted. She has brown liquid stool from fecal management system and we will check a C. diff toxin. Most likely diarrhea is only from tube feedings. Temperature max 101.6. Heart rate 113, respiratory rate 39, blood pressure 120/61, pulse ox 99%. Repeat chest x-ray reveals correlate for pneumonia, edema, ARDS. Repeat blood work reveals WBC 10, hemoglobin 7.4, platelet count 298. Sodium 145, potassium 3.4, chloride 114, CO2 24, BUN 33 and creatinine 0.85. Blood sugars are running between 115 and 122. Total bilirubin 1.2, AST 39, ALT 23, and phosphatase 150. Urinalysis sent last evening showed blood moderate, RBC 64, WBC 7. Blood cultures since every are showing no growth. 09/09: Patient remains in the intensive care unit intubated and on mechanical ventilation. Patient has been started on Precedex. She remains with [address] to the sternal wound. Yu catheter with good urine output. Fecal management system in place. C. difficile toxin was negative. 2. Feedings are at goal. The patient is not focusing eyes, no purposeful movements. Patient has been afebrile greater than 24 hours. Heart rate 90s, respiratory rate 30s to 40s, blood pressure 112/64, pulse ox 97%. WBC 9.0, hemoglobin 7.3, platelet count 292. Potassium 3.4 and will be replaced. Blood sugars running between 100 2049. Alkaline phosphatase 161. TSH 3.7-0. We have also added a vitamin B12 level. Lasix was increased to twice daily. Temperature max 100.6. 09/10: Patient remains in intensive care unit, intubated and on mechanical ventilation with tidal volume 400, FiO2 35, PEEP 5. Patient has been started on propofol since yesterday's eval. Temperature max 100.6, heart rate 80, respiratory rate 28, blood pressure 104/60, pulse ox 90%. Repeat blood work reveals Connie BC 12.5, hemoglobin 7.4, platelet count 403. Electrolytes are normal. BUN 34 and creatinine 0.81. Blood sugars are running 123 236. Magnesium 2.0. AST 42, ALT 31, alkaline phosphatase 183. Chest x-ray is stable. 09/11:she remains in the intensive care unit, intubated and on mechanical ventilation. Patient has been off sedation this morning. Her eyes are open but she has no reaction, does not follow instructions. No purposeful movements.CAT scan of the cervical spine reveals C3-C7 ACDF hardware causing artifact. Thickening of the prevertebral soft tissues likely due to intubation state disc osteophyte complex contributing to moderate spinal stenosis at C3-C4. Severe left neural foraminal stenosis. Moderate to severe right neural foraminal stenosis at C6-C7. Degenerative grade 1 anterolisthesis at C7-T1. Thoracic spine CAT scan revealed no vertebral compression collapse. Degenerative grade 1 anterolisthesis secondary to hypertrophic facet arthropathy below the ACDF at C7-T1. Low utility for epidural abscess. No endplate erosions are seen.CAT scan of the brain reveals no acute intracranial abnormality. No enhancing intracranial lesions. Layering fluid in the mastoid air cells. repeat chest x- ray reveals correlate for pneumonia, junk congestive heart failure and pulmonary edema, ARDS. Lasix decreased to 40 mg IV once daily. free water flushes have been discontinuedper nephrology. Patient is followed by cardiology and pulmonary medicine as well. Patient has been afebrile since September 09. Heart rate in the 90s, respiratory rate in the 20s,110/44. WBC 13.2, hemoglobin 7.7, platelet count 428. Sodium 136, potassium 3.9, , CO2 25, BUN 32 and creatinine 0.86. Blood sugars are running between 121 and 132. Alkaline phosphatase 163. Blood cultures since every have shown no growth. 09/12: patient remains in the intensive care unit, intubated and on mechanical ventilation. Patient has been off sedation this morning. Her eyes are open but she has no reaction, does not follow instructions. No purposeful movements.CAT scan of the cervical spine results noted above. Lasix decreased to 40 mg IV once daily. free water flushes have been discontinuedper nephrology. Patient is followed by cardiology and pulmonary medicine as well. Patient has been afebrile since September 09. Heart rate in the 90s, respiratory rate in the 20s,110/44. WBC 13.2, hemoglobin 7.7, platelet count 428. Sodium 136, potassium 3.9, [id number], CO2 25, BUN 32 and creatinine 0.86. Blood sugars are running between 121 and 132. Alkaline phosphatase 163. Blood cultures since every have shown no growth. 09/13: Remains in intensive care unit, intubated and on mechanical ventilation. Spontaneous respirations was attempted for approximate 40 minutes. Patient's respiration rate increased to 40 with increase in heart rate. Patient is scheduled for a trach on Monday with Dr. Sethi and a PEG tube with Dr. Oscar on Monday. WBC 11.2, hemoglobin 7.5, platelets 44. Blood sugars running from 120 to 130s. Blood pressure 170/62, patient remains afebrile, respirations 18, heart rate 108 FiO2 35 09/14: Remains in the intensive care unit, intubated and on mechanical ventilation with tidal volume 400, FiO2 35 of PEEP of 5. Patient is scheduled for Lasix which is going to be given after her procedures. Patient is scheduled for PEG tube and trach this morning. She remains with [address], midsternal having 50 MLS per shift. She also has Yu catheter and with 40 ML's per hour. She is not currently on vasopressors. Patient has a coccyx decubitus ulcer H2O she has coccyx area. She also has opted form to the scapula area. She has been afebrile, heart rate 92-108, blood pressure 136/85, pulse ox 97%. 2. Blood work reveals WBC 12.3, hemoglobin 8, platelet count 431. Electrolytes normal. BUN 31 and creatinine 0.73. Alkaline phosphatase 158. Repeat chest x-ray reveals diffuse pleural parenchymal changes are stable correlate for diffuse pneumonia, ARDS or heart failure. 09/15: Patient is status post PEG tube placement and trach. She remains on mechanical ventilation on CPAP. She is at on tube feedings. She remains with no purposeful movement. She has been afebrile, heart rate 100, blood pressure 123/68, pulse ox 99%. Repeat blood work reveals Connie BC 12.6, hemoglobin 7.7. Electrolytes normal, BUN 26 creatinine 0.85. Blood sugars 105-117. Social work is following for discharge planning. Patient has been off vasopressors. 09/16: She remains in the intensive care unit, on CPAP. She remains with no purposeful movements. She is off vasopressors. PEG tube feedings are in place. Temperature max 100.6. Heart rate 96, respiratory rate 30, blood pressure 109/60, pulse ox 98%. Repeat blood work reveals WBC 14.4, hemoglobin 7.5, platelet count 389. Potassium 3.4 otherwise electrolytes normal. BUN 26 and creatinine 0.81. Blood sugars running between 115-141. Chest x-ray reveals correlate for pneumonia, anemia, ARDS. Cardiology has signed off. Dr. Mcintyre continues to follow with plan to slowly wean off antibiotics. Patient is currently on cefepime and daptomycin. Discharge plan is to [facility] acute care. 09/17: Patient remains in the intensive care unit. Repeat chest x-ray reveals no significant interval change. Patient status remains unchanged. She continues to have eyes open but unresponsive and no purposeful movement. [address] Fecal management system has been removed. Yu catheter in place. quality assurance monitor final is in normal sinus rhythm. Patient is not requiring vasopressors. No documented fevers since September 15. Antibiotics have been transitioned to IV Kefzol. Pulse 92, blood pressure 87/44. FiO2 35%, pressure support 14 and PEEP of 5. Patient has been cleared for discharge to long-term rehab once cleared by kersey department supervisor. 09/18: Patient remains on mechanical ventilation. She is not on sedation. She is on FiO2 35%, pressure support 12 PEEP of 5. She is opening eyes and occasionally tracking. She has movement of all 4 extremities but is not following any commands. Temperature max 99.6. W BC 15.3. BUN 35 and creatinine 0.7. Hemoglobin 8.2. Cultures have been negative since September 01. Temperature max 100.0. Blood pressure 125/63, heart rate 90s. quality assurance monitor final is sinus rhythm. Tube feedings are at goal. Repeat chest x-ray reveals suspect some improvement in aeration. Arrangements have been made for long-term acute care. Patient will be transferred today at 2 PM. Cardiothoracic team has communicated with the patient's family. ASSESSMENT AND PLAN 1. Acute diastolic heart failure, (POA) EF 55%, mild AI and mild MR and mild TR, also complicated by severe protein calorie malnutrition. 2. Acute hypoxemic respiratory failure. (POA) 3. Acute kidney injury secondary to ATN secondary to hypotension and cardiorenal syndrome. (POA) 4. Hyperkalemia secondary to potassium supplementation, losartan and acute kidney injury as well as severe acidosis. (POA) 5. Metabolic acidosis secondary to acute kidney injury. (POA) 6. Metabolic encephalopathy secondary to acute kidney injury, acute heart failure, acute respiratory failure, metabolic acidosis and hyperkalemia. (POA) 7. Sepsis with septic shock with multiorgan failure with metabolic encephalopathy, acute kidney injury, acute heart failure, acute respiratory failure, MSSA bacteremia. (POA) 8. Sepsis with sternal wound dehiscence. (POA) Status post sternal exploration and sternal debridement on 08/27 followed by excision of sternal wound, partial sternotomy and pectoralis flap procedure on 09/03. 9. Acute blood loss anemia, postop, status post transfusion of 5 units of packed RBCs. 10. Hyponatremia. 11. CAD, with prior CABG performed on 08/10/2020, two-vessel, involving HOLLAND to LAD, and reverse greater saphenous vein to obtuse marginal coronary artery. 12. Severe protein calorie malnutrition, with anasarca and hypotension. 13. History of pulmonary fibrosis. 14. Asthma, mild intermittent. 15. Hyperlipidemia. 16. Hypertension. 17. Critical care neuropathy essentially ruled out by and neurology. 19. Blood sugar management in a nondiabetic. 21. Acute transaminitis secondary to hypoperfusion. 22. Chronic kidney disease stage II. 23. Stage II coccyx decubitus ulcer adn stage II DU thoracic back area. 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 Impression and plan of care have been directed as dictated by the signing physician. Monica Fragoso nurse practitioner acting as scribe for signing physician. Patient Condition at Discharge: Stable Plan - Discharge Summary Discharge Rx Participant: Yes New Discharge Prescriptions: New Darbepoetin Robby [Aranesp] 40 mcg SQ Q7D syringe Fluconazole [Diflucan] 100 mg PO DAILY tab Ipratropium-Albuterol Nebulize [Duoneb 0.5 mg-3 mg/3 ml Soln] 3 ml INHALATION RT-QID ml Ipratropium-Albuterol Nebulize [Duoneb 0.5 mg-3 mg/3 ml Soln] 3 ml INHALATION RT-Q2H PRN ml PRN Reason: Shortness Of Breath Or Wheezing Heparin Sodium,Porcine [Heparin Sodium] 5,000 unit SQ Q8HR vial Metoprolol Tartrate [Lopressor] 75 mg PO BID tab Melatonin 6 mg PO HS tablet INSULIN ASPART (NovoLOG) [NovoLOG (formulary)] 0 unit SQ Q6H vial Chlorhexidine Gluconate [Peridex] 15 ml MUCOUS MEM BID ml Cefazolin Sodium/D5w [Kefzol 2 Gm/D5w 100 ml] 2 gm IVPB Q8H #10 dose Continue Aspirin 325 mg PO DAILY #30 tab Ferrous Sulfate [Iron (65 MG Elemental)] 325 mg PO W/LUNCH #7 tab Atorvastatin [Lipitor] 40 mg PO DAILY #30 tab guaiFENesin-DM 600/30MG [Mucinex Dm] 2 each PO Q12HR #14 tab.er.12h Clopidogrel [Plavix] 75 mg PO DAILY #30 tab Pantoprazole [Protonix] 40 mg PO AC-BRKFST #30 tablet.dr Knight-Docusate Sodium [Senokot-S] 2 each PO HS PRN #14 tab PRN Reason: Constipation Acetaminophen Tab [Tylenol] 650 mg PO Q4HR PRN tab PRN Reason: Fever and/ or Mild Pain Ascorbic Acid [Vitamin C] 500 mg PO DAILY@1200 #7 tab Changed Furosemide [Lasix] 40 mg INJ DAILY #7 tablet Discontinued Ipratropium-Albuterol Nebulize [Duoneb 0.5 mg-3 mg/3 ml Soln] 3 ml INHALATION RT-QID PRN PRN Reason: Shortness Of Breath Ibuprofen [Motrin] 800 mg PO TID PRN PRN Reason: Pain Albuterol Sulfate [Albuterol Sulfate Hfa] 2 puff PO RT-Q6H PRN PRN Reason: Shortness Of Breath Losartan [Cozaar] 25 mg PO DAILY@1200 #30 tab Potassium Chloride ER [K-Dur 10] 10 meq PO DAILY #7 tab Metoprolol Tartrate [Lopressor] 75 mg PO BID #180 tab Discharge Medication List Acetaminophen Tab [Tylenol] 650 mg PO Q4HR PRN tab 08/19/20 [Rx] Ascorbic Acid [Vitamin C] 500 mg PO DAILY@1200 #7 tab 08/19/20 [Rx] Aspirin 325 mg PO DAILY #30 tab 08/19/20 [Rx] Atorvastatin [Lipitor] 40 mg PO DAILY #30 tab 08/19/20 [Rx] Clopidogrel [Plavix] 75 mg PO DAILY #30 tab 08/19/20 [Rx] Ferrous Sulfate [Iron (65 MG Elemental)] 325 mg PO W/LUNCH #7 tab 08/19/20 [Rx] Pantoprazole [Protonix] 40 mg PO AC-BRKFST #30 tablet.dr 08/19/20 [Rx] Sennosides-Docusate Sodium [Senokot-S] 2 each PO HS PRN #14 tab 08/19/20 [Rx] guaiFENesin-DM 600/30MG [Mucinex Dm] 2 each PO Q12HR #14 tab.er.12h 08/19/20 [Rx] Cefazolin Sodium/D5w [Kefzol 2 Gm/D5w 100 ml] 2 gm IVPB Q8H #10 dose 09/18/20 [Rx] Chlorhexidine Gluconate [Peridex] 15 ml MUCOUS MEM BID ml 09/18/20 [Rx] Darbepoetin Robby [Aranesp] 40 mcg SQ Q7D syringe 09/18/20 [Rx] Fluconazole [Diflucan] 100 mg PO DAILY tab 09/18/20 [Rx] Furosemide [Lasix] 40 mg INJ DAILY #7 tablet 09/18/20 [Rx] Heparin Sodium,Porcine [Heparin Sodium] 5,000 unit SQ Q8HR vial 09/18/20 [Rx] INSULIN ASPART (NovoLOG) [NovoLOG (formulary)] 0 unit SQ Q6H vial 09/18/20 [Rx] Ipratropium-Albuterol Nebulize [Duoneb 0.5 mg-3 mg/3 ml Soln] 3 ml INHALATION RT-Q2H PRN ml 09/18/20 [Rx] Ipratropium-Albuterol Nebulize [Duoneb 0.5 mg-3 mg/3 ml Soln] 3 ml INHALATION RT-QID ml 09/18/20 [Rx] Melatonin 6 mg PO HS tablet 09/18/20 [Rx] Metoprolol Tartrate [Lopressor] 75 mg PO BID tab 09/18/20 [Rx] Follow up Appointment(s)/Referral(s): Chung Whittaker MD [STAFF PHYSICIAN] - (Plastic Surgeon) Dilip Sloan MD [STAFF PHYSICIAN] - (Managing Jeweler) Renae Lema MD [STAFF PHYSICIAN] - (Grain Receiver) Flores Sethi MD [STAFF PHYSICIAN] - (Cardiac surgeon) Anival Metcalf MD [STAFF PHYSICIAN] - (Urologist) Aparna Colunga NPC [Nurse Practitioner] - (Oil Field Pipeline Supervisor) [facility], [NON-STAFF] - 1-2 Days [facility], [REFERRING] - Rich Avila MD [Primary Care Provider] - (Primary care physician) Activity/Diet/Wound Care/Special Instructions: DISCHARGE INSTRUCTIONS: 1. Heart hugger is to be worn 100% of the time until physician discontinues.(except when showering) 2. No lifting, pushing, or pulling more than 10 pounds for 12 weeks from surgery (CABG 08/10/20). The physician will advise of any restriction changes. 3. Continue pain control per as needed orders. 4. Incisions to be cleaned daily using liquid antibacterial soap 5. Routine sternal incision care. No powders, lotions, ointments on incisions. 6. RAHEEM to remain until drainage less than 30 mL/24 hours x 2 days in a row Discharge Disposition: [facility]
[2020-09-18 11:39] LABS: Glucose,Whole Blood 126 mg/dL (75-99)
--- NOTE | 2020-09-18 13:03 | P.PN ---
Subjective Progress Note Date: 09/18/20 Patient was seen for a follow-up. Patient is on no sedation. Patient is still alert and awake, with minimal response, appears somewhat depressed facial expression. Patient underwent tracheostomy and PEG placement 09/14/2020. Patient today is much more alert and awake, and following some commands as per examination. Patient did not offer any complaints by nodding however. Objective - Vital Signs Vital signs: Vital Signs Temp 100 F H 09/18/20 08:00 Pulse 101 H 09/18/20 11:56 Resp 13 09/18/20 11:00 BP 125/63 09/18/20 11:00 Pulse Ox 98 09/18/20 11:00 Intake & Output 09/17/20 09/18/20 09/18/20 18:59 06:59 18:59 Intake Total 410 847 309 Output Total 9546 076 4696 Balance -1254 267 -821 Weight 77.6 kg 77.6 kg Intake: IV 269 193 115 .9 NS 130 110 50 Pressure Bag 39 33 15 ceFAZolin 2 gm In Sodium 100 50 50 Chloride 0.9% 50 ml @ 100 mls/hr IVPB Q8HR TORIBIO Rx# :[id number] Intake, IV Titration 100 Amount Magnesium Sulfate-D5w Pmx 100 1 gm In Dextrose/Water 1 100ml.bag @ 100 mls/hr IVPB Q1H TORIBIO Rx#: [id number] Tube Feeding 141 564 94 Other 90 Output: Drainage 3 30 10 RAHEEM #1. 3 RAHEEM #2 0 30 10 RAHEEM #3 0 Urine 9582 701 2235 Other: Voiding Method Indwelling Catheter Indwelling Catheter Indwelling Catheter # Bowel Movements 1 1 ABP, PAP, CO, CI - Last Documented Arterial Blood Pressure 136/57 - Exam 09/18/2020: Patient fully alert and awake. Patient turned her eyes towards me, when I called her name. Patient made eye contact. Inconsistent follows the commands. Pupils are round and reacting. Patient still moves head [id number], sometimes like a bird. Patient slightly moves her left arm on painful stimuli, but hardly any response with the right upper limb. Patient had a slight forward kicking movement on painful stimuli involving both lower extremities. Appeared quite strong. Patient continues to have brisk reflexes, very brisk 3+ in the right upper limb, 2+ left upper limb, 3 at the knees and bi lateral Babinski. - Labs CBC & Chem 7: 09/18/20 04:55 09/18/20 04:55 Labs: Abnormal Lab Results - Last 24 Hours (Table) 09/17/20 09/18/20 09/18/20 Range/Units 18:01 00:27 04:55 WBC 15.3 H (3.8-10.6) k/uL RBC 2.82 L (3.80-5.40) m/uL Hgb 8.2 L (11.4-16.0) gm/dL Hct 25.7 L (34.0-46.0) % RDW 16.7 H (11.5-15.5) % Neutrophils # 9.7 H (1.3-7.7) k/uL ABG pH (7.35-7.45) ABG HCO3 (21-25) mmol/L ABG Total CO2 (19-24) mmol/L ABG O2 Saturation (94-97) % Carbon Dioxide (22-30) mmol/L BUN (7-17) mg/dL Glucose (74-99) mg/dL POC Glucose (mg/dL) 127 H 141 H (75-99) mg/dL 09/18/20 09/18/20 09/18/20 Range/Units 04:55 05:10 06:00 WBC (3.8-10.6) k/uL RBC (3.80-5.40) m/uL Hgb (11.4-16.0) gm/dL Hct (34.0-46.0) % RDW (11.5-15.5) % Neutrophils # (1.3-7.7) k/uL ABG pH 7.53 H (7.35-7.45) ABG HCO3 36 H (21-25) mmol/L ABG Total CO2 37 H (19-24) mmol/L ABG O2 Saturation 99.6 H (94-97) % Carbon Dioxide 33 H (22-30) mmol/L BUN 35 H (7-17) mg/dL Glucose 121 H (74-99) mg/dL POC Glucose (mg/dL) 138 H (75-99) mg/dL 09/18/20 Range/Units 11:38 WBC (3.8-10.6) k/uL RBC (3.80-5.40) m/uL Hgb (11.4-16.0) gm/dL Hct (34.0-46.0) % RDW (11.5-15.5) % Neutrophils # (1.3-7.7) k/uL ABG pH (7.35-7.45) ABG HCO3 (21-25) mmol/L ABG Total CO2 (19-24) mmol/L ABG O2 Saturation (94-97) % Carbon Dioxide (22-30) mmol/L BUN (7-17) mg/dL Glucose (74-99) mg/dL POC Glucose (mg/dL) 126 H (75-99) mg/dL Assessment and Plan Assessment: * Patient has developed quadriparesis, but now seems to be improving, with restless type movements mainly of the lower extremities. Her tone in the legs appears to be normal at times, and movements appear sometimes purposeful. Patient still very weak in the upper extremities bilaterally, right worse than left. Very minimal movement noted in the left biceps. Patient continues to be spastic with bilateral Babinski. Rule out myelomalacia due to spinal stenosis, transverse myelitis or other cord abnormality. CT of the cervical and thoracic spine with IV contrast showed no evidence of discitis osteomyelitis. No evidence of critical illness neuropathy or myopathy. 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 Improved. Blood cultures negative since 09/01/2020. * Status post CABG, followed by wound infection, requiring sternal debridement with persistent sepsis. Status post placement of muscle flap. * Status post Septic shock with MSSA * Acute kidney injury, resolved * Acute transaminitis, resolved * Anemia * CHF * Hypertension * History of cervical fusion, spinal stenosis in the past. Plan: * Patient continues to be encephalopathic, does not follow most of the commands, just only some minimal commands, inconsistently. She continues to be much weaker in the arms as compared to the legs. She moves her legs randomly (low amplitude) at the level of hip and the knees. The tone appears normal or perhaps slightly increased. Consider MRI of the brain and cervical spine, when able to be performed. * EEG 09/05/2020, which was abnormal due to background slowing of moderate to severe degree. This is suggestive of generalized cerebral dysfunction as can be seen with toxic metabolic encephalopathy or related to diffuse structural brain abnormality. No epileptiform activity was seen. No indication for antiepileptic medication. * Patient continues to be encephalopathic, due to toxic metabolic encephalopathy. * Appreciate Orthopedic spine input. Hardware in the cervical spine is stable. No loosening. * CPK 74, TSH 1.87, aldolase 8.4 (1.2 to 7.6). * Anemia, improved. CT abdomen and pelvis negative. * Patient being transferred to long-term care facility at 2 PM.
[2020-09-18] MEDS: FERROUS SULFATE ORAL ELIXIR 300 MG/5 ML CUP PO SCH (13:43)
[2020-09-18] MEDS: ASCORBIC ACID 500 MG TAB PO SCH (13:43)
[2020-09-18 14:22] VITALS: BP 121/67; PULSE 110; RESP 39
--- NOTE | 2020-09-18 14:30 | P.PN ---
Subjective Progress Note Date: 09/18/20 Principal diagnosis: Acute hypoxic and hypercapnic respiratory failure secondary to sepsis and septic shock. 09/13/2020, the patient remains off sedation. She opens her eyes. She follows people around the room. She moves her legs occasionally. I haven't seen in follow-up in a maintenance. She does not follow commands. No seizure activity. No agitation. She seems to be quite and comfortable. Watching her, she can move her legs clearly and I've seen this on several occasions. The patient remains on a mechanical ventilator. She is on assist control mode, VC plus, r ate of 20 with a tidal volume of 400 and an inspiratory time of 0.8 with an FiO2 of 35% and a PEEP of 5. Her chest x-ray was showing improvement in the pulmonary infiltrates. The follow-up chest x-ray from today showed adequate positioning of ET tube. There is still some scattered bilateral pulmonary infiltrates, however, overall, findings are stable and the NG tube and orotracheal tube are both in a good location. Blood gases from today showed a pH of 7.49 with a pCO2 of 39 and a pO2 of 97 and this was done on an FiO2 of 35%. No significant orotracheal secretions. The patient remains on a combination of cefepime and daptomycin. No new cultures and her last positive blood culture with staph aureus was on 08/31/2020. She is afebrile. Her white cell count is at 11.2 and she has a hemoglobin of 7.5. Renal function is stable. She is receiving enteral feeding and she is on vital high protein at the rate of 55 mL an hour which is currently at goal. She is stooling. No diarrhea and she has adequate urine and stool output. She does have a cough. She does have a gag. I am going to check his weaning parameters. I do not have intentions to extubate the patient, however I may give her a prolonged once his breathing trial and assess her ability to do some spontaneous breathing on a pressure support mode of ventilation. On and off, she has been given fentanyl for pain control. RAHEEM drains are still in place with serosanguineous output and the sternum is stable clean and intact and the dressing is dry. The cardiac rhythm is sinus tachycardia and she is on Lopressor 50 mg by mouth twice a day. She is on no pressors. The fluid balance is -1000 mL and she is taking Lasix 40 mg IV on a daily basis. Patient was reevaluated today on 09/14/2020, remains intubated and mechanically ventilated. Patient is now on tidal volume is 400 assist control rate of 20 FiO2 35% PEEP is 5 ABG showed a pO2 of 106 pCO2 of 40 0 pH of 7.50. Ration is not requiring any pressors at this point. Patient is still on treatment for MSSA bacteremia and sepsis as well as septic shock. But she has made a significant improvement overall except her neurological status remains quite an issue. Patient is encephalopathic, and not ready to be weaned or extubated. Hence the patient is going for tracheostomy and PEG tube placement today. Patient had sternal muscle flap done by plastic surgery. Patient does not follow any commands. No seizure activity no agitations. Chest x-ray continues to show improvement in her bilateral pulmonary infiltrates. No significant orotracheal secretions. Remains on cefepime and daptomycin. Last positive blood cultures for staph were on 08/31/2020. ABC is showing improvement WBC count is 12.3 hemoglobin is 8. Basic metabolic profile is normal. Patient is not requiring any further dialysis. Liver profile is normal. Patient was reevaluated today on 09/15/2020, patient remains in the ICU, intubated and mechanically ventilated. He is however now status post tracheostomy and PEG tube placement, her ventilator settings are assist control rate of 20,000 volume is 400 FiO2 35% PEEP of 5. ABG showed a pO2 of 98 pCO2 of 39 pH of 7.51, patient was transitioned from assist-control mode of mechanical ventilation to pressure support and CPAP. Patient was placed on a pressure support of 14 and CPAP of 5. He is seemed to be tolerating that mode of mechanical ventilation quite well, however she did not tolerate lower pressure support less than 14. Her tidal volumes were measured to be significantly lower. Patient remains on cefepime and daptomycin. Remains on IV fluid and she is still encephalopathic, opens eyes, does not follow any instructions whatsoever. She is awake but does not track with her eyes and she does not follow any instructions. Remains on tube feeding, not up to goal yet. Chest x-ray continues to show bilateral infil trates and some component of interstitial lung disease Patient was reevaluated today on 09/16/2020, remains in the ICU, intubated and mechanically ventilated. She is status post tracheostomy and PEG tube placement, patient remains about the same from the neurological perspective, remains basically encephalopathic. Opens eyes, does not seem to be in any distress, however she does not follow any instructions whatsoever. Patient is on assist control rate of 20 tidal volume is 400 FiO2 of 35% and PEEP of 5. No ABG done today. Her IV fluid is at 100 mL per hour. Patient continues to take antibiotics for her sternal wound infection and that is being addressed by infectious disease on the case. Yesterday she tolerated a pressure support of 14 and CPAP, and today I plan to do the same. Patient will be transitioned to pressure support of 14 and CPAP of 5, and she'll be kept on it throughout the day. Yesterday she tolerated at least good 8 hours of this. Asked x-ray is basically about the same showing some mild interstitial infiltrates. WBC count is 14.4 hemoglobin is 7.5. Electrolytes are normal renal profile is normal potassium is 3.4 being corrected as per protocol. Follow-up blood cultures since the have been negative although previous blood cultures were positive for staph aureus. Reevaluated today on 09/17/2020, patient remains on mechanical ventilation, she basically went through the whole 24 hours on pressure support of 14 and CPAP of 5 with FiO2 of 35%. Remains on this mode of mechanical ventilation. Today I cut down her pressure support from 14-12. Her ABG showed a pO2 of 105 pCO2 45 pH of 7.48. Patient is showing slight improvement in her mental status today, she is blinking her eyes, slightly wiggling her toes, seems to be comprehending very minimal commands. Patient remains on IV fluid to [facility]. Remains on tube feeds. And her RAHEEM lines will be removed by thoracic surgery today. Chest x-ray continues to show minimal bilateral interstitial infiltrates. Apparently patient is known to have history of interstitial lung disease. Transfer plans are in progress for possibly sending the patient to select care specialty. WBC count today is 15.5 hemoglobin is 8.3. Basic metabolic profile and renal profile are normal. Patient was reevaluated today on 09/18/2020, remains intubated and mechanically ventilated. She is on pressure support of 12 and CPAP of 5 and FiO2 of 35% ABG showed a pO2 of 102 pCO2 of 43 pH of 7.53. Patient remains at KVO IV fluids. She is awake, she opens her eyes, follows very simple instructions by blinking her eyes upon request. She is trying to move her feet when asked to wiggle her toes, but seems to be quite weak. Patient is awake, seems to be alert, and cannot squeeze hands mostly because of the weakness. Patient is being considered for transfer possibly to [facility] care specialty. Chest x-ray continu es to show minimal bilateral infiltrates. Patient is known to have history of interstitial lung disease labs today were reviewed CBC showed WBC count of 15.3 hemoglobin is 8.2 basic metabolic profile is basically normal. Renal profile is normal Objective - Vital Signs Vital signs: Vital Signs Temp 100 F H 09/18/20 08:00 Pulse 110 H 09/18/20 14:00 Resp 39 H 09/18/20 14:00 BP 121/67 09/18/20 14:00 Pulse Ox 95 09/18/20 14:00 Intake & Output 09/17/20 09/18/20 09/18/20 18:59 06:59 18:59 Intake Total 410 847 339 Output Total 3413 657 6550 Balance -1254 267 -1096 Weight 77.6 kg 77.6 kg Intake: IV 269 193 145 .9 NS 130 110 80 Pressure Bag 39 33 15 ceFAZolin 2 gm In Sodium 100 50 50 Chloride 0.9% 50 ml @ 100 mls/hr IVPB Q8HR TORIBIO Rx# :[id number] Intake, IV Titration 100 Amount Magnesium Sulfate-D5w Pmx 100 1 gm In Dextrose/Water 1 100ml.bag @ 100 mls/hr IVPB Q1H TORIBIO Rx#: [id number] Tube Feeding 141 564 94 Other 90 Output: Drainage 3 30 15 RAHEEM #1. 3 RAHEEM #2 0 30 15 RAHEEM #3 0 Urine 2073 559 7757 Other: Voiding Method Indwelling Catheter Indwelling Catheter Indwelling Catheter # Bowel Movements 1 1 1 ABP, PAP, CO, CI - Last Documented Arterial Blood Pressure 136/57 - Exam PHYSICAL EXAMINATION: Revealed a 75-year-old female, on pressure support mode of mechanical ventilation with CPAP. Awake, follows very simple instructions mostly blinking her eyes. HEENT:, PERRLA, EOMI, nonicteric.Moist mucous membranes tracheostomy is intact. And PEG tube is intact. CHEST EXAMINATION: Symmetrical chest expansion, fine crackles at the bases. HEART EXAMINATION normal S1 and S2, 2/6 systolic murmur thought the precordium. ABDOMEN: obese, Soft, nontender. Bowel sounds are heard. No organomegaly noted. PEG tube is noted. EXTREMITIES: Trace of bipedal edema, good pulses bilaterally. NEUROLOGIC EXAMINATION : Patient is awake, following minimal verbal instructions. Psychiatric not be assessed. Skin: No rashes , however the patient has supposedly a stage II sacral decubitus ulcer. She also has an abrasion on the right forearm. - Labs CBC & Chem 7: 09/18/20 04:55 09/18/20 04:55 Labs: Abnormal Lab Results - Last 24 Hours (Table) 09/17/20 09/18/20 09/18/20 Range/Units 18:01 00:27 04:55 WBC 15.3 H (3.8-10.6) k/uL RBC 2.82 L (3.80-5.40) m/uL Hgb 8.2 L (11.4-16.0) gm/dL Hct 25.7 L (34.0-46.0) % RDW 16.7 H (11.5-15.5) % Neutrophils # 9.7 H (1.3-7.7) k/uL ABG pH (7.35-7.45) ABG HCO3 (21-25) mmol/L ABG Total CO2 (19-24) mmol/L ABG O2 Saturation (94-97) % Carbon Dioxide (22-30) mmol/L BUN (7-17) mg/dL Glucose (74-99) mg/dL POC Glucose (mg/dL) 127 H 141 H (75-99) mg/dL 09/18/20 09/18/20 09/18/20 Range/Units 04:55 05:10 06:00 WBC (3.8-10.6) k/uL RBC (3.80-5.40) m/uL Hgb (11.4-16.0) gm/dL Hct (34.0-46.0) % RDW (11.5-15.5) % Neutrophils # (1.3-7.7) k/uL ABG pH 7.53 H (7.35-7.45) ABG HCO3 36 H (21-25) mmol/L ABG Total CO2 37 H (19-24) mmol/L ABG O2 Saturation 99.6 H (94-97) % Carbon Dioxide 33 H (22-30) mmol/L BUN 35 H (7-17) mg/dL Glucose 121 H (74-99) mg/dL POC Glucose (mg/dL) 138 H (75-99) mg/dL 09/18/20 Range/Units 11:38 WBC (3.8-10.6) k/uL RBC (3.80-5.40) m/uL Hgb (11.4-16.0) gm/dL Hct (34.0-46.0) % RDW (11.5-15.5) % Neutrophils # (1.3-7.7) k/uL ABG pH (7.35-7.45) ABG HCO3 (21-25) mmol/L ABG Total CO2 (19-24) mmol/L ABG O2 Saturation (94-97) % Carbon Dioxide (22-30) mmol/L BUN (7-17) mg/dL Glucose (74-99) mg/dL POC Glucose (mg/dL) 126 H (75-99) mg/dL Assessment and Plan Assessment: Impression: Acute hypoxic and hypercapnic respiratory failure secondary to MSSA bacteremia, sepsis, septic shock, and sternal wound infection. Postoperative day # 14 status post excision of sternal wound and muscle flap. Septic shock secondary to above, resolved. Acute kidney injury, resolved. Acute metabolic acidosis secondary to above, resolved. Acute diastolic congestive heart failure with bilateral pleural effusions, improved. Benign essential hypertension. History of severe cervical stenosis. Mild interstitial lung disease. 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 Status post sternal exploration and sternal wound debridement August 27. Acute metabolic encephalopathy, not improving, practically the same Failure to wean requiring tracheostomy and PEG tube placement. critical illness polyneuropathy. Profound weakness secondary to critical illness polyneuropathy. Status post tracheostomy and PEG tube placement on 09/14/2020 Recommendation: Continue pressure support of 12 and CPAP of 5. Continue antibiotics as per infectious disease on the case. Continue tracheostomy and PEG tube Continue enteral feeding. Antibiotics as per infectious disease on the case. Continue diuretics as needed. Possible transfer to a long-term acute care possibly today. Time with Patient: Less than 30
--- NOTE | 2020-09-18 14:40 | P.PN ---
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 INTERVAL HISTORY: The patient is afebrile. The patient is hemodynamically stable, not on any pressor support. FiO2 is currently stable at 35%. The patient has spontaneous opening of the eyes, but no meaningful response. No significant purulent secretions through ET ordiarrhea has been reported. PHYSICAL EXAMINATION: Her blood pressure is 121/67 with a pulse of 105, temperature 98.9. She is 97% on 35% FiO2. General description is an elderly female lying in bed in no distress. RESPIRATORY SYSTEM: Unlabored breathing with decreased breath sounds at the base. No wheeze. HEART: S1, S2. Regular rate and rhythm. ABDOMEN: Soft. No tenderness. LABS: White count 15.3. DIAGNOSTIC IMPRESSION AND PLAN: 1. 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 Currently on cefazolin 2gm q8hr , plan is for total of 6 weeks course of IV cefazolin. Follow-up blood culture has been negative. 2. Patient with elevated white count, possibly reactive, or could be related to oropharyngeal candidiasis. a trial of the Diflucan 100mg daily x 7 days.
== END 2020-09-18 14:30 | DRG 3 ==
LOC: EC 21:26 → 3SCARD 23:29 → 2SICU 08-24 04:54
PROVIDERS: ADMIT Family Medicine; ATTEND Family Medicine
PROC: 5A09357 Assistance with Respiratory Ventilation, Less than 24 Consecutive Hours, Continuous Positive Airway Pressure (ICD-10-PCS; 2020-08-24)
PROC: 4A133J1 Monitoring of Arterial Pulse, Peripheral, Percutaneous Approach (ICD-10-PCS; 2020-08-24)
PROC: 03HY32Z Insertion of Monitoring Device into Upper Artery, Percutaneous Approach (ICD-10-PCS; 2020-08-24)
PROC: 06HY33Z Insertion of Infusion Device into Lower Vein, Percutaneous Approach (ICD-10-PCS; 2020-08-24)
PROC: 4A133B1 Monitoring of Arterial Pressure, Peripheral, Percutaneous Approach (ICD-10-PCS; 2020-08-24)
PROC: 5A1D70Z Performance of Urinary Filtration, Intermittent, Less than 6 Hours Per Day (ICD-10-PCS; 2020-08-24)
PROC: 3E033XZ Introduction of Vasopressor into Peripheral Vein, Percutaneous Approach (ICD-10-PCS; 2020-08-24)
PROC: 0D9670Z Drainage of Stomach with Drainage Device, Via Natural or Artificial Opening (ICD-10-PCS; 2020-08-24)
PROC: 5A1955Z Respiratory Ventilation, Greater than 96 Consecutive Hours (ICD-10-PCS; 2020-08-25)
PROC: 0BH17EZ Insertion of Endotracheal Airway into Trachea, Via Natural or Artificial Opening (ICD-10-PCS; 2020-08-25)
PROC: 5A0935A Assistance with Respiratory Ventilation, Less than 24 Consecutive Hours, High Flow/Velocity Cannula (ICD-10-PCS; 2020-08-25)
PROC: 30233N1 Transfusion of Nonautologous Red Blood Cells into Peripheral Vein, Percutaneous Approach (ICD-10-PCS; 2020-08-25)
PROC: 0JD60ZZ Extraction of Chest Subcutaneous Tissue and Fascia, Open Approach (ICD-10-PCS; 2020-08-29)
PROC: 4A133B1 Monitoring of Arterial Pressure, Peripheral, Percutaneous Approach (ICD-10-PCS; 2020-08-29)
PROC: 06HM33Z Insertion of Infusion Device into Right Femoral Vein, Percutaneous Approach (ICD-10-PCS; 2020-08-29)
PROC: 03HY32Z Insertion of Monitoring Device into Upper Artery, Percutaneous Approach (ICD-10-PCS; 2020-08-29)
PROC: 4A133J1 Monitoring of Arterial Pulse, Peripheral, Percutaneous Approach (ICD-10-PCS; 2020-08-29)
PROC: 0JB60ZZ Excision of Chest Subcutaneous Tissue and Fascia, Open Approach (ICD-10-PCS; 2020-08-30)
PROC: 04PYX3Z Removal of Infusion Device from Lower Artery, External Approach (ICD-10-PCS; 2020-08-30)
PROC: 2W04X6Z Change Pressure Dressing on Chest Wall (ICD-10-PCS; 2020-08-31)
PROC: 05HD33Z Insertion of Infusion Device into Right Cephalic Vein, Percutaneous Approach (ICD-10-PCS; 2020-09-02)
PROC: 0PB00ZZ Excision of Sternum, Open Approach (ICD-10-PCS; 2020-09-03)
PROC: 0KXH0ZZ Transfer Right Thorax Muscle, Open Approach (ICD-10-PCS; 2020-09-03)
PROC: 0KXJ0ZZ Transfer Left Thorax Muscle, Open Approach (ICD-10-PCS; 2020-09-03)
PROC: 0PB00ZZ Excision of Sternum, Open Approach (ICD-10-PCS; 2020-09-04)
PROC: 02HV33Z Insertion of Infusion Device into Superior Vena Cava, Percutaneous Approach (ICD-10-PCS; 2020-09-07)
PROC: 0BH17EZ Insertion of Endotracheal Airway into Trachea, Via Natural or Artificial Opening (ICD-10-PCS; 2020-09-07)
PROC: 5A1955Z Respiratory Ventilation, Greater than 96 Consecutive Hours (ICD-10-PCS; 2020-09-07)
PROC: 5A09357 Assistance with Respiratory Ventilation, Less than 24 Consecutive Hours, Continuous Positive Airway Pressure (ICD-10-PCS; 2020-09-07)
PROC: 0B110F4 Bypass Trachea to Cutaneous with Tracheostomy Device, Open Approach (ICD-10-PCS; principal; 2020-09-14 11:10)
PROC: 5A1955Z Respiratory Ventilation, Greater than 96 Consecutive Hours (ICD-10-PCS; principal; 2020-09-14 11:10)
PROC: 0DH63UZ Insertion of Feeding Device into Stomach, Percutaneous Approach (ICD-10-PCS; 2020-09-14 11:10)
PROC: 3E0G76Z Introduction of Nutritional Substance into Upper GI, Via Natural or Artificial Opening (ICD-10-PCS; 2020-09-14 11:10)
DX: I13.0 Hypertensive heart and chronic kidney disease with heart failure and stage 1 through stage 4 chronic kidney disease, or unspecified chronic kidney disease (principal); I50.33 Acute on chronic diastolic (congestive) heart failure; A41.01 Sepsis due to Methicillin susceptible Staphylococcus aureus; E43 Unspecified severe protein-calorie malnutrition; G82.50 Quadriplegia, unspecified; G93.41 Metabolic encephalopathy; J18.9 Pneumonia, unspecified organism; J96.01 Acute respiratory failure with hypoxia; J96.02 Acute respiratory failure with hypercapnia; N17.0 Acute kidney failure with tubular necrosis; R65.21 Severe sepsis with septic shock; D62 Acute posthemorrhagic anemia; E87.0 Hyperosmolality and hypernatremia; E87.1 Hypo-osmolality and hyponatremia; E87.4 Mixed disorder of acid-base balance; I48.92 Unspecified atrial flutter; M86.9 Osteomyelitis, unspecified; T81.30XA Disruption of wound, unspecified, initial encounter; T81.41XA Infection following a procedure, superficial incisional surgical site, initial encounter; T81.49XA Infection following a procedure, other surgical site, initial encounter; Z20.822 Contact with and (suspected) exposure to COVID-19; R73.9 Hyperglycemia, unspecified; E66.9 Obesity, unspecified; Z68.33 Body mass index [BMI] 33.0-33.9, adult; E78.5 Hyperlipidemia, unspecified; E87.5 Hyperkalemia; E87.6 Hypokalemia; I25.10 Atherosclerotic heart disease of native coronary artery without angina pectoris; I27.20 Pulmonary hypertension, unspecified; I08.3 Combined rheumatic disorders of mitral, aortic and tricuspid valves; I48.0 Paroxysmal atrial fibrillation; J45.20 Mild intermittent asthma, uncomplicated; J84.10 Pulmonary fibrosis, unspecified; M50.33 Other cervical disc degeneration, cervicothoracic region; L89.152 Pressure ulcer of sacral region, stage 2; M25.78 Osteophyte, vertebrae; M43.13 Spondylolisthesis, cervicothoracic region; M48.02 Spinal stenosis, cervical region; N18.2 Chronic kidney disease, stage 2 (mild); T50.2X5A Adverse effect of carbonic-anhydrase inhibitors, benzothiadiazides and other diuretics, initial encounter; Y84.8 Other medical procedures as the cause of abnormal reaction of the patient, or of later complication, without mention of misadventure at the time of the procedure; T68.XXXA Hypothermia, initial encounter; R74.01 Elevation of levels of liver transaminase levels; Z98.1 Arthrodesis status; Z98.42 Cataract extraction status, left eye; Z98.41 Cataract extraction status, right eye; Z96.1 Presence of intraocular lens; Z90.89 Acquired absence of other organs; Z98.51 Tubal ligation status; Z80.7 Family history of other malignant neoplasms of lymphoid, hematopoietic and related tissues; Z80.3 Family history of malignant neoplasm of breast; Z82.49 Family history of ischemic heart disease and other diseases of the circulatory system; L89.102 Pressure ulcer of unspecified part of back, stage 2; M15.9 Polyosteoarthritis, unspecified; Z79.02 Long term (current) use of antithrombotics/antiplatelets; Z79.82 Long term (current) use of aspirin; Z79.899 Other long term (current) drug therapy; Z85.828 Personal history of other malignant neoplasm of skin; Z86.73 Personal history of transient ischemic attack (TIA), and cerebral infarction without residual deficits; Z87.891 Personal history of nicotine dependence; Z95.1 Presence of aortocoronary bypass graft
CPT/HCPCS: 36410; 36415; 36573; 36600; 43246; 70450; 70470; 71045; 71046; 71250; 72125; 72127; 72130; 74176; 76604; 76937; 80048; 80053; 81001; 82085; 82330; 82550; 82607; 82805; 83605; 83735; 83880; 84100; 84132; 84145; 84443; 84484; 85025; 85027; 85379; 85610; 85652; 85730; 86140; 86704; 86706; 86738; 86850; 86900; 86901; 86920; 87040; 87070; 87075; 87077; 87086; 87186; 87205; 87324; 87340; 87449; 87635; 88304; 88311; 90935; 93005; 93306; 94002; 94003; 94640; 94660; 94760; 95816; 96374; 96375; 99285

== ENCOUNTER 2021-10-27 11:06 | Day surgery (SDC) | payer MEDICARE ==
[2021-10-26 12:18] VITALS: BMI 30.8
[~2021-10-27 11:06] MED LIST changes: +ALBUTEROL NEB (CONC) 2.5 MG/0.5 ML INHALATION ONE; -ALPRAZolam 0.25 MG TAB PO PRN; -ALPRAZolam 0.5 MG TAB PO PRN; -ASPIRIN 325 MG TAB PO STA; -ATORVASTATIN 80 MG TAB PO STA; +ATROPINE SULFATE 0.4 MG/ML 1 ML VIAL IM ONE; +LACTATED RINGERS 1,000 ML IV SCH; +LIDOCAINE 2% (PF) 20 MG/ML 5 ML VIAL INHALATION ONE; +LIDOCAINE VISCOUS 300 MG/15 ML CUP MUCOUS MEM ONE; -NITROGLYCERIN SL TABS 0.4 MG TAB SUBLINGUAL PRN; -SODIUM CHLORIDE 0.9% 1,000 ML in EMPTY BAG 1 BAG IV ONE
[2021-10-27 11:31] VITALS: RESP 20; TEMP 98
[2021-10-27] MEDS ORDERED: PROPOFOL 10 MG/ML 20 ML VIAL IV ONE (12:05)
[2021-10-27] MEDS ORDERED: MIDAZOLAM 2 MG/2 ML VIAL ONE (12:05)
[2021-10-27] MEDS ORDERED: KETAMINE 10 MG/ML 20 ML VIAL ONE (12:05)
[2021-10-27] MEDS ORDERED: fentaNYL (PF) 50 MCG/ML 2 ML AMP ONE (12:05)
[2021-10-27] MEDS ORDERED: GLYCOPYRROLATE 0.2 MG/ML 2 ML VIAL ONE (12:05)
[2021-10-27] MEDS ORDERED: LIDOCAINE 1% INJ 10MG/ML (20 ML MDV) ONE (12:05)
[2021-10-27] MEDS ORDERED: LIDOCAINE 2% INJ 20 MG/ML INTRATRACH ONE (12:18)
--- NOTE | 2021-10-27 13:10 | PCN ---
PROCEDURE NOTE PROCEDURE: Bronchoscopy, airway examination and evaluation of the subglottic area. PREOPERATIVE DIAGNOSIS: Subglottic stenosis. POSTOPERATIVE DIAGNOSIS: Subglottic stenosis. OPERATORS: 1. Dr. Guadalupe. 2. Dr. Colunga. 3. Dr. Post. PROCEDURE DESCRIPTION: There was informed consent and universal timeout. Anesthesia provided general anesthesia. The patient's procedure was done in room #1 [facility]. After the patient was adequately sedated and being fully monitored, the bronchoscope was inserted through the right nostril. It passed through the right nasopharynx into the oropharynx. The hypopharynx was identified. Anterior commissure, true cords, false cords, arytenoids, piriform sinuses, right and left, valleculae and epiglottis were all normal. The glottic opening was topicalized. Of note was in the subglottic area, there was a shelf of tissue noted distal to the glottic opening. In addition, at about 1 o'clock, there were two areas of granulation tissue. Distal to these areas, the rest of the airways were relatively normal, the right upper lobe and its 3 segments, right middle lobe and its 2 segments, right lower lobe and its 5 segments, left upper lobe proper and its 2 segments, lingula and its 2 segments, and left lower lobe and its 4 segments. Pictures were taken. One of the pictures will be given to the patient's family. In my opinion, the patient will be evaluated by one of the thoracic surgeons over [facility] in [place]. Additional recommendations and suggestions are forthcoming. Prognosis is guarded. The patient will be recovered. MMODL / IJN: [id number] / MTDD
[2021-10-27 13:27] VITALS: BP 131/78; PULSE 100
== END 2021-10-27 13:54 | disposition home or self-care (01) ==
LOC: ORWHC2ENDO 11:06
PROVIDERS: ATTEND Internal Medicine Critical Care Medicine
DX: J38.6 Stenosis of larynx (principal); J84.10 Pulmonary fibrosis, unspecified; I25.10 Atherosclerotic heart disease of native coronary artery without angina pectoris; J45.909 Unspecified asthma, uncomplicated; I13.0 Hypertensive heart and chronic kidney disease with heart failure and stage 1 through stage 4 chronic kidney disease, or unspecified chronic kidney disease; I50.9 Heart failure, unspecified; N18.2 Chronic kidney disease, stage 2 (mild); M19.90 Unspecified osteoarthritis, unspecified site; E78.5 Hyperlipidemia, unspecified; R55 Syncope and collapse; J90 Pleural effusion, not elsewhere classified; N88.2 Stricture and stenosis of cervix uteri; E78.00 Pure hypercholesterolemia, unspecified; Z86.73 Personal history of transient ischemic attack (TIA), and cerebral infarction without residual deficits; Z95.1 Presence of aortocoronary bypass graft; Z87.891 Personal history of nicotine dependence; Z79.899 Other long term (current) drug therapy; Z79.02 Long term (current) use of antithrombotics/antiplatelets; Z87.440 Personal history of urinary (tract) infections; Z91.040 Latex allergy status; Z91.09 Other allergy status, other than to drugs and biological substances; Z98.51 Tubal ligation status; Z90.49 Acquired absence of other specified parts of digestive tract; Z90.89 Acquired absence of other organs; Z85.828 Personal history of other malignant neoplasm of skin; Z97.2 Presence of dental prosthetic device (complete) (partial); Z82.49 Family history of ischemic heart disease and other diseases of the circulatory system; Z80.7 Family history of other malignant neoplasms of lymphoid, hematopoietic and related tissues
CPT/HCPCS: 31622; J2001 ×2; J2250; J3010; J2704; 31645

== ENCOUNTER 2024-02-21 10:18 | Day surgery (SDC) | payer MEDICARE ==
[2024-02-21] MEDS ORDERED: DEXAMETHASONE SOD PHOSPHATE 4 MG/ML 1 ML VIAL ONE (10:39)
[2024-02-21] MEDS ORDERED: ONDANSETRON 4 MG/2 ML VIAL ONE (10:39)
[2024-02-21] MEDS ORDERED: BACITRACIN OINT 1 EACH PACKET TOPICAL ONE ×2 (10:55→15:02)
[2024-02-21] MEDS ORDERED: LACTATED RINGERS 1,000 ML BAG ONE (10:55)
[2024-02-21] MEDS ORDERED: LIDOCAINE 1%-EPI 1:100,000 20 ML VIAL ONE (10:55)
[2024-02-21] MEDS ORDERED: IPRATROPIUM-ALBUTEROL 3 ML NEB ONE (11:05)
[2024-02-21] MEDS ORDERED: ePHEDrine 50 MG/ML 1 ML VIAL ONE (11:39)
[2024-02-21] MEDS ORDERED: PROPOFOL 10 MG/ML 20 ML VIAL IV ONE (11:39)
[2024-02-21] MEDS ORDERED: WATER FOR INJECTION, STERILE 10 ML VIAL IV ONE (11:39)
[2024-02-21] MEDS ORDERED: fentaNYL (PF) 50 MCG/ML 2 ML AMP ONE (11:39)
[2024-02-21] MEDS ORDERED: SUCCINYLCHOLINE CHLORIDE 200 MG/10 ML VIAL IV ONE (11:39)
[2024-02-21] MEDS ORDERED: PHENYLEPHRINE-0.9% NACL SYG 1,000 MCG/10 ML SYRINGE ONE (11:39)
[2024-02-21] MEDS ORDERED: LIDOCAINE 1% INJ 10MG/ML (20 ML MDV) ONE (11:39)
--- NOTE | 2024-03-21 15:13 | OP ---
OPERATIVE REPORT DATE OF SERVICE : PREOPERATIVE DIAGNOSES: 1. Nasal tip skin lesion. 2. Left medial/posterior ear skin lesion. POSTOPERATIVE DIAGNOSES: 1. Nasal tip skin lesion. 2. Left medial/posterior ear skin lesion. PROCEDURES: 1. Excision of nasal tip lesion 1.8 x 1.9 cm. 2. A full-thickness skin graft nasal tip 2.1 x 2.0 cm with donor graft site, left postauricular. 3. Excision, left ear skin lesion 2.3 cm with layered closure. ANESTHESIA: General. ESTIMATED BLOOD LOSS: Minimal, less than 5 cc. COMPLICATIONS: None. INDICATIONS: This is a 79-year-old white female, who has history of an enlarging nasal tip skin lesion. She had to delay her treatment due to other medical issues. This has been slowly enlarging since last year. She also developed a left ear lesion in the meantime. OPERATIVE FINDINGS: Erosive, rounded skin lesion, nasal tip with grossly abnormal tissue down to the right upper lateral cartilage. The left ear lesion was a small approximate 5-6 mm eschar on the medial/posterior aspect of the left ear. DESCRIPTION OF PROCEDURE: The patient was brought to the operative suite and placed in supine position. The patient underwent induction of general anesthesia with oral endotracheal intubation without difficulty. The patient prepped and draped in usual aseptic fashion. 1% lidocaine with 1:100,00 epinephrine was infused subcutaneously around the nasal tip lesion, left postauricular area for skin graft and also the left ear site. vasoconstrictive effect. The nasal tip lesion was then excised grossly entirely including a shave of the underlying cartilage. Initially was to go to frozen section, but this was not available today apparently this was deferred. Again, the gross margins appeared unremarkable including additional inspection of the wound sites. Hemostasis obtained with electrocautery. An elliptical incision was fashioned in the left postauricular area for skin graft. This was carried sharply through the skin and subcutaneous tissue to the level of the subcutaneous fat layer. The skin graft was defatted. The graft donor site had wide undermining and hemostasis was gained with electrocautery. The wound was then closed in a subcutaneous layer with inverted interrupted 4-0 Vicryl suture in the subcutaneous layer and the skin closed with running locking 4-0 Prolene suture. Bacitracin ointment and sterile dressing was placed. The skin graft was then sutured circumferentially at the nasal tip site to the appropriate shape and size with simple interrupted 5-0 Rapide Vicryl sutures placed. A bolster dressing of Adaptic covering bacitracin impregnated cotton was then sutured down to the graft. The left ear lesion was excised in elliptical fashion down to the perichondrium electrocautery and the wound was closed, the subcutaneous layer with inverted interrupted 5-0 Vicryl suture. Skin closed with simple interrupted 5-0 Prolene suture. Bacitracin ointment and sterile dressing was placed. The patient then allowed to emerge from general anesthesia having tolerated the procedure well, transferred to postop recovery area in satisfactory condition. MMODL / IJN: [id number] /
== END 2024-02-21 15:00 ==
LOC: OR 10:18
PROVIDERS: ATTEND Otolaryngology
DX: C44.311 Basal cell carcinoma of skin of nose
CPT/HCPCS: 88300; 88305

== ENCOUNTER 2024-03-03 10:57 | Inpatient (IN) | payer MEDICARE ==
--- NOTE | 2024-03-03 11:18 | ED ---
General Adult HPI - General Chief complaint: Shortness of Breath Stated complaint: Jozef leg swelling,SOB Time Seen by Provider: 03/03/24 11:02 Source: patient, family, RN notes reviewed Mode of arrival: wheelchair Limitations: no limitations - History of Present Illness Initial comments: Patient is a 79-year-old female present to the emergency department with concerns with shortness of breath. Symptoms have been present for the past week. Patient does have history of pulmonary fibrosis. Patient does have some leg swelling that her doctor did prescribe her diuretic for. Patient took this a couple times and symptoms improved and she stopped taking it. Leg swelling has returned. No calf pain. No fevers. Occasional cough with occasional yello w sputum. Patient did have a spot removed from her nose last week - Related Data Home Medications Medication Instructions Recorded Confirmed Ibuprofen [Motrin] 800 mg PO Q8H 10/26/21 03/03/24 Ipratropium-Albuterol Nebulize 3 ml INHALATION TID PRN 10/26/21 03/03/24 [Duoneb 0.5 mg-3 mg/3 ml Soln] Baclofen 10 mg PO DAILY 04/03/23 03/03/24 Metoprolol Succinate [Metoprolol 25 mg PO DAILY 04/03/23 03/03/24 Succinate ER] Rosuvastatin [Crestor] 40 mg PO DAILY 04/03/23 03/03/24 Fluticasone/Umeclidin/Vilanter 1 puff INHALATION RT-DAILY 03/03/24 03/03/24 [Trelegy Ellipta 100-62.5-25] hydroCHLOROthiazide [Hydrodiuril] 12.5 mg PO DAILY 03/03/24 03/03/24 Previous Rx's Medication Instructions Recorded Clopidogrel [Plavix] 75 mg PO DAILY #30 tab 08/19/20 Allergies Allergy/AdvReac Type Severity Reaction Status Date / Time adhesive Allergy blisters Verified 03/03/24 12:01 latex Allergy Rash/Hives Verified 03/03/24 12:01 Review of Systems ROS Statement: Those systems with pertinent positive or pertinent negative responses have been documented in the HPI. ROS Other: All systems not noted in ROS Statement are negative. Constitutional: Denies: fever Eyes: Denies: eye pain ENT: Denies: ear pain Respiratory: Reports: as per HPI, cough, dyspnea Cardiovascular: Reports: edema. Denies: chest pain Endocrine: Reports: fatigue Gastrointestinal: Denies: abdominal pain, vomiting Genitourinary: Denies: dysuria Musculoskeletal: Denies: back pain Skin: Denies: rash Past Medical History Past Medical History: Coronary Artery Disease (CAD), Cancer, CVA/TIA, Hyperlipidemia, Hypertension, Osteoarthritis (OA) Additional Past Medical History / Comment(s): skin cancer with removals, arthritis multiple joints, back and cervical pain, ?TIA A teens-shows up on scan?, PULMONARY FIBROSIS, HAD A KIDNEY FAILURE IN THE ICU. SEPSIS FOLLOWING OPEN HEART SURGERY- WAS IN HOSPITAL FOR 5 MONTHS History of Any Multi-Drug Resistant Organisms: None Reported Past Surgical History: Cardiac Valve Replacement, Cholecystectomy, Coronary Bypass/CABG, Heart Catheterization, Tonsillectomy, Tubal Ligation Additional Past Surgical History / Comment(s): 2 CABG, 2 cardiac caths without intervention, bilateral cataract removal with lens implants, skin cancer removals, cyst removed from neck, colonoscopy, cervical fusion Past Anesthesia/Blood Transfusion Reactions: No Reported Reaction Additional Past Anesthesia/Blood Transfusion Reaction / Comment(s): Pt has never received blood. Past Psychological History: No Psychological Hx Reported Smoking Status: Former smoker - Past Family History Brother(s) Family Medical History: Coronary Artery Disease (CAD) Additional Family Medical History / Comment(s): "bad heart" aneurysm Sister(s) Family Medical History: Cancer Additional Family Medical History / Comment(s): breast cancer Mother Family Medical History: Cancer, Coronary Artery Disease (CAD) Additional Family Medical History / Comment(s): Lymphoma, had a pacemaker. Mother at the age of 92yrs. Father Family Medical History: Coronary Artery Disease (CAD), Myocardial Infarction ([place]) Additional Family Medical History / Comment(s): Father of a [place] at the age of 63 yrs, diagnosed with CAD in his early 50s. General Exam Limitations: no limitations General appearance: alert, in no apparent distress Head exam: Present: normocephalic Eye exam: Present: normal appearance Neck exam: Present: normal inspection Respiratory exam: Present: wheezes Cardiovascular Exam: Present: regular rate, normal rhythm Expanded Peripheral pulses: 2+: Dorsalis Pedis (R), Dorsalis Pedis (L) GI/Abdominal exam: Present: soft. Absent: tenderness Extremities exam: Present: pedal edema. Absent: calf tenderness Neurological exam: Present: alert Psychiatric exam: Present: normal affect, normal mood Skin exam: Present: normal color Course Vital Signs 03/03/24 03/03/24 03/03/24 10:58 13:03 13:52 Temperature 98.2 F Pulse Rate 73 69 70 Respiratory 16 20 Rate Blood Pressure 115/75 149/78 O2 Sat by Pulse 97 95 Oximetry 03/03/24 13:59 Temperature Pulse Rate 78 Respiratory Rate Blood Pressure O2 Sat by Pulse Oximetry EKG Findings - EKG Results: EKG: interpreted by ERMD, sinus rhythm, normal axis, normal QRS, normal ST/T Medical Decision Making - Medical Decision Making Was pt. sent in by a medical professional or institution (, PA, CHAIN LINK FENCE INSTALLER, urgent care, hospital, or assisted...) When possible be specific @ -No Did you speak to anyone other than the patient for history (EMS, parent, family, police, friend...)? What history was obtained from this source @ -Is present helps provide history including that patient did take diuretics for a couple of days Did you review nursing and triage notes (agree or disagree)? Why? @ -I reviewed and agree with nursing and triage notes Were old charts reviewed (outside hosp., previous admission, EMS record, old EKG, old radiological studies, urgent care reports/EKG's, assisted records)? Report findings @ -No old charts were reviewed Differential Diagnosis (chest pain, altered mental status, abdominal pain women, abdominal pain men, vaginal bleeding, weakness, fever, dyspnea, syncope, headache, dizziness, GI bleed, back pain, seizure, CVA, palpatations, mental health, musculoskeletal)? @ -Differential Dyspnea: Coronary syndrome, arrhythmia, tamponade, asthma, COPD, pulmonary embolism, pneumonia, pneumothorax, pulmonary effusion, anaphylaxis, diabetic ketoacidosis, flailed chest, pulmonary contusion, diaphragmatic rupture, anemia, neuromuscular, this is not meant to be an all-inclusive list. EKG interpreted by me (3pts min.). @ -As above X-rays interpreted by me (1pt min.). @ -X-ray shows some minimal interstitial change CT interpreted by me (1pt min.). @ -None done U/S interpreted by me (1pt. min.). @ -None done What testing was considered but not performed or refused? (CT, X-rays, U/S, labs)? Why? @ -None What meds were considered but not given or refused? Why? @ -None Did you discuss the management of the patient with other professionals (professionals i.e. , PA, CHAIN LINK FENCE INSTALLER, lab, RT, psych nurse, social and human services assistant, kraft digester operator, teacher, property disposal officer, piano case and bench assembler)? Give summary @ -Case was discussed with Dr. Cross who will admit covering Dr. Avila, Carlos Was smoking cessation discussed for >3mins.? @ -No Was critical care preformed (if so, how long)? @ -No Were there social determinants of health that impacted care today? How? (Homelessness, low income, unemployed, alcoholism, drug addiction, transportation, low edu. Level, literacy, decrease access to med. care, long term, rehab)? @ -No Was there de-escalation of care discussed even if they declined (Discuss DNR or withdrawal of care, Hospice)? DNR status @ -No What co-morbidities impacted this encounter? (DM, HTN, Smoking, COPD, CAD, Cancer, CVA, ARF, Chemo, Hep., AIDS, mental health diagnosis, sleep apnea, morbid obesity)? @ -Recent diuretic use however only for a few days Was patient admitted / discharged? Hospital course, mention meds given and route, prescriptions, significant lab abnormalities, going to OR and other pertinent info. @ -Patient presents with leg edema and dyspnea. Hyponatremia on evaluation. Patient could have a mild component of heart failure. Patient will be admitted with echo and cardiac consult. Admission orders written Undiagnosed new problem with uncertain prognosis? @ -No Drug Therapy requiring intensive monitoring for toxicity (Heparin, Nitro, Insulin, Cardizem)? @ -No Were any procedures done? @ -No Diagnosis/symptom? @ -Hyponatremia edema Acute, or Chronic, or Acute on Chronic? @ -Acute, acute Uncomplicated (without systemic symptoms) or Complicated (systemic symptoms)? @ -Default Side effects of treatment? @ -No Exacerbation, Progression, or Severe Exacerbation? @ -No Poses a threat to life or bodily function? How? (Chest pain, [place], [place], pneumonia, PE, COPD, DKA, ARF, appy, cholecystitis, CVA, Diverticulitis, Homicidal, Suicidal, threat to staff... and all critical care pts) @ -No - Lab Data Result diagrams: 03/03/24 11:29 03/03/24 11:29 Lab Results 03/03/24 03/03/24 03/03/24 Range/Units 11:29 11:29 11:29 WBC 8.0 (3.8-10.6) k/uL RBC 4.61 (3.80-5.40) m/uL Hgb 13.9 (11.4-16.0) gm/dL Hct 40.6 (34.0-46.0) % MCV 87.9 (80.0-100.0) fL MCH 30.1 (25.0-35.0) pg MCHC 34.3 (31.0-37.0) g/dL RDW 14.0 (11.5-15.5) % Plt Count 218 (150-450) k/uL MPV 7.5 Neutrophils % 67 % Lymphocytes % 21 % Monocytes % 6 % Eosinophils % 4 % Basophils % 0 % Neutrophils # 5.3 (1.3-7.7) k/uL Lymphocytes # 1.6 (1.0-4.8) k/uL Monocytes # 0.5 (0-1.0) k/uL Eosinophils # 0.3 (0-0.7) k/uL Basophils # 0.0 (0-0.2) k/uL PT 9.8 L (10.0-12.5) sec INR 0.9 (<1.2) APTT 25.9 (22.0-30.0) sec D-Dimer (<0.60) mg/L FEU Sodium 125 L (137-145) mmol/L Potassium 4.2 (3.5-5.1) mmol/L Chloride 95 L (98-107) mmol/L Carbon Dioxide 24 (22-30) mmol/L Anion Gap 6 mmol/L BUN 17 (7-17) mg/dL Creatinine 0.69 (0.52-1.04) mg/dL Est GFR (CKD-EPI)AfAm >90 (>60 ml/min/1.73 sqM) Est GFR (CKD-EPI)NonAf 84 (>60 ml/min/1.73 sqM) Glucose 95 (74-99) mg/dL Plasma Lactic Acid Garrett (0.7-2.0) mmol/L Calcium 9.3 (8.4-10.2) mg/dL Magnesium 1.7 (1.6-2.3) mg/dL Total Bilirubin 1.1 (0.2-1.3) mg/dL AST 33 (14-36) U/L ALT 25 (4-34) U/L Alkaline Phosphatase 79 (38-126) U/L Troponin I (0.000-0.034) ng/mL NT-Pro-B Natriuret Pep 434 pg/mL Total Protein 6.5 (6.3-8.2) g/dL Albumin 4.0 (3.5-5.0) g/dL Influenza Type A (PCR) (Not Detectd) Influenza Type B (PCR) (Not Detectd) RSV (PCR) (Not Detectd) SARS-CoV-2 (PCR) (Not Detectd) 03/03/24 03/03/24 03/03/24 Range/Units 11:29 11:29 11:29 WBC (3.8-10.6) k/uL RBC (3.80-5.40) m/uL Hgb (11.4-16.0) gm/dL Hct (34.0-46.0) % MCV (80.0-100.0) fL MCH (25.0-35.0) pg MCHC (31.0-37.0) g/dL RDW (11.5-15.5) % Plt Count (150-450) k/uL MPV Neutrophils % % Lymphocytes % % Monocytes % % Eosinophils % % Basophils % % Neutrophils # (1.3-7.7) k/uL Lymphocytes # (1.0-4.8) k/uL Monocytes # (0-1.0) k/uL Eosinophils # (0-0.7) k/uL Basophils # (0-0.2) k/uL PT (10.0-12.5) sec INR (<1.2) APTT (22.0-30.0) sec D-Dimer (<0.60) mg/L FEU Sodium (137-145) mmol/L Potassium (3.5-5.1) mmol/L Chloride (98-107) mmol/L Carbon Dioxide (22-30) mmol/L Anion Gap mmol/L BUN (7-17) mg/dL Creatinine (0.52-1.04) mg/dL Est GFR (CKD-EPI)AfAm (>60 ml/min/1.73 sqM) Est GFR (CKD-EPI)NonAf (>60 ml/min/1.73 sqM) Glucose (74-99) mg/dL Plasma Lactic Acid Garrett 1.0 (0.7-2.0) mmol/L Calcium (8.4-10.2) mg/dL Magnesium (1.6-2.3) mg/dL Total Bilirubin (0.2-1.3) mg/dL AST (14-36) U/L ALT (4-34) U/L Alkaline Phosphatase (38-126) U/L Troponin I <0.012 (0.000-0.034) ng/mL NT-Pro-B Natriuret Pep pg/mL Total Protein (6.3-8.2) g/dL Albumin (3.5-5.0) g/dL Influenza Type A (PCR) Not Detected (Not Detectd) Influenza Type B (PCR) Not Detected (Not Detectd) RSV (PCR) Not Detected (Not Detectd) SARS-CoV-2 (PCR) Not Detected (Not Detectd) 03/03/24 Range/Units 11:29 WBC (3.8-10.6) k/uL RBC (3.80-5.40) m/uL Hgb (11.4-16.0) gm/dL Hct (34.0-46.0) % MCV (80.0-100.0) fL MCH (25.0-35.0) pg MCHC (31.0-37.0) g/dL RDW (11.5-15.5) % Plt Count (150-450) k/uL MPV Neutrophils % % Lymphocytes % % Monocytes % % Eosinophils % % Basophils % % Neutrophils # (1.3-7.7) k/uL Lymphocytes # (1.0-4.8) k/uL Monocytes # (0-1.0) k/uL Eosinophils # (0-0.7) k/uL Basophils # (0-0.2) k/uL PT (10.0-12.5) sec INR (<1.2) APTT (22.0-30.0) sec D-Dimer 0.36 (<0.60) mg/L FEU Sodium (137-145) mmol/L Potassium (3.5-5.1) mmol/L Chloride (98-107) mmol/L Carbon Dioxide (22-30) mmol/L Anion Gap mmol/L BUN (7-17) mg/dL Creatinine (0.52-1.04) mg/dL Est GFR (CKD-EPI)AfAm (>60 ml/min/1.73 sqM) Est GFR (CKD-EPI)NonAf (>60 ml/min/1.73 sqM) Glucose (74-99) mg/dL Plasma Lactic Acid Garrett (0.7-2.0) mmol/L Calcium (8.4-10.2) mg/dL Magnesium (1.6-2.3) mg/dL Total Bilirubin (0.2-1.3) mg/dL AST (14-36) U/L ALT (4-34) U/L Alkaline Phosphatase (38-126) U/L Troponin I (0.000-0.034) ng/mL NT-Pro-B Natriuret Pep pg/mL Total Protein (6.3-8.2) g/dL Albumin (3.5-5.0) g/dL Influenza Type A (PCR) (Not Detectd) Influenza Type B (PCR) (Not Detectd) RSV (PCR) (Not Detectd) SARS-CoV-2 (PCR) (Not Detectd) Disposition Clinical Impression: Hyponatremia, Edema leg Disposition: ADMITTED IP TO THIS HOSP Is patient prescribed a controlled substance at d/c from ED?: No Referrals: Rich Avila MD [Primary Care Provider] - 1-2 days Time of Disposition: 14:43
[2024-03-03 11:41] LABS: Basophils % (A) 0 %; Eosinophils # (A) 0.3 k/uL (0-0.7); Eosinophils % (A) 4 %; HCT 40.6 % (34.0-46.0); HGB 13.9 gm/dL (11.4-16.0); Lymphocytes # (A) 1.6 k/uL (1.0-4.8); Lymphocytes % (A) 21 %; MCH 30.1 pg (25.0-35.0); MCHC 34.3 g/dL (31.0-37.0); MCV 87.9 fL (80.0-100.0); Mean Platelet Volume 7.5; Monocytes # (A) 0.5 k/uL (0-1.0); Monocytes % (A) 6 %; Neutrophils # (A) 5.3 k/uL (1.3-7.7); Neutrophils % (A) 67 %; Platelet Count 218 k/uL (150-450); RBC 4.61 m/uL (3.80-5.40)
[2024-03-03 12:01] LABS: INR 0.9 (<1.2); Partial Thromboplastin Time 25.9 sec (22.0-30.0); Prothrombin Time 9.8 sec (10.0-12.5)
[2024-03-03 12:04] LABS: ALT 25 U/L (4-34); AST 33 U/L (14-36); African American GFR (CKD) >90 (>60 ml/min/1.73 sqM); Alkaline Phosphatase 79 U/L (38-126); Anion Gap 6 mmol/L; Blood Urea Nitrogen 17 mg/dL (7-17); Calcium 9.3 mg/dL (8.4-10.2); Carbon Dioxide 24 mmol/L (22-30); Chloride 95 mmol/L (98-107); Glucose 95 mg/dL (74-99); Magnesium 1.7 mg/dL (1.6-2.3); Non-African American GFR(CKD) 84 (>60 ml/min/1.73 sqM); Potassium 4.2 mmol/L (3.5-5.1); Sodium 125 mmol/L (137-145); Total Bilirubin 1.1 mg/dL (0.2-1.3); Total Protein 6.5 g/dL (6.3-8.2)
[2024-03-03 12:12] LABS: NT-Pro-B-Type Natriuretic Pept 434 pg/mL
--- NOTE | 2024-03-03 12:43 | XR ---
EXAMINATION TYPE: XR chest 2V DATE OF EXAM: 03/03/2024 COMPARISON: 09/18/2020 HISTORY: 79 year-old female shortness of breath, difficulty breathing, pulmonary fibrosis TECHNIQUE: AP and lateral views FINDINGS: ACDF hardware. Median sternotomy wires. Surgical clips along the AP window/left perihilar region. Hea rt is mildly enlarged. Interstitial densities. No pleural effusion. [facility] mid thoracic spine. Cholecys tectomy clips. IMPRESSION: Mild cardiomegaly and interstitial densities. Correlate for mild pulmonary vascular congestion.
[2024-03-03] MEDS: IPRATROPIUM-ALBUTEROL 3 ML NEB INHALATION STA (13:51)
[2024-03-03] MEDS ORDERED: NALOXONE 0.4 MG/ML 1 ML VIAL IV PRN (14:44)
[2024-03-03] MEDS: SODIUM CHLORIDE 0.9% 1,000 ML IV SCH ×2 (14:56→23:25)
--- NOTE | 2024-03-03 15:17 | P.HPIM ---
History of Present Illness This is a pleasant 79 years old female with past medical history of multiple medical problems as below. Presents because of worsening dyspnea and leg edema for about 1 week without chest pain No other change in urine or bowel habits. No fever. She denies smoking or illicit drugs. She drinks alcohol occasionally She is hemodynamically stable Labs reviewed showing unremarkable CBC, BMP and liver enzymes except for low sodium 125 Chest x-ray showing CHF D-dimer negative at 0.3 proBNP is low at 434 Lactic acid 1 Troponin negative EKG showing sinus rhythm at [address]-T changes Review of Systems Review of systems CONSTITUTIONAL: No fever, no malaise, no fatigue. HEENT: No recent visual problems or hearing problems. Denied any sore throat. CARDIOVASCULAR: No orthopnea, PND, no palpitations, no syncope. PULMONARY: no cough, no hemoptysis. GASTROINTESTINAL: No diarrhea, no nausea, no vomiting, no abdominal pain. Normoactive bowel sounds. NEUROLOGICAL: No headaches, no weakness, no numbness. HEMATOLOGICAL: Denies any bleeding or petechiae. GENITOURINARY: Denies any burning micturition, frequency, or urgency. MUSCULOSKELETAL/RHEUMATOLOGICAL: Denies any joint pain, swelling, or any muscle pain. ENDOCRINE: Denies any polyuria or polydipsia. Past Medical History Past Medical History: Coronary Artery Disease (CAD), Cancer, CVA/TIA, Hyperlipidemia, Hypertension, Osteoarthritis (OA) Additional Past Medical History / Comment(s): skin cancer with removals, arthritis multiple joints, back and cervical pain, ?TIA A teens-shows up on scan?, PULMONARY FIBROSIS, HAD A KIDNEY FAILURE IN THE ICU. SEPSIS FOLLOWING OPEN HEART SURGERY- WAS IN HOSPITAL FOR 5 MONTHS History of Any Multi-Drug Resistant Organisms: None Reported Past Surgical History: Cardiac Valve Replacement, Cholecystectomy, Coronary Bypass/CABG, Heart Catheterization, Tonsillectomy, Tubal Ligation Additional Past Surgical History / Comment(s): 2--21 CABG, 2 cardiac caths without intervention, bilateral cataract removal with lens implants, skin cancer removals, cyst removed from neck, colonoscopy, cervical fusion Past Anesthesia/Blood Transfusion Reactions: No Reported Reaction Additional Past Anesthesia/Blood Transfusion Reaction / Comment(s): Pt has never received blood. Past Psychological History: No Psychological Hx Reported Smoking Status: Former smoker - Past Family History Brother(s) Family Medical History: Coronary Artery Disease (CAD) Additional Family Medical History / Comment(s): "bad heart" aneurysm Sister(s) Family Medical History: Cancer Additional Family Medical History / Comment(s): breast cancer Mother Family Medical History: Cancer, Coronary Artery Disease (CAD) Additional Family Medical History / Comment(s): Lymphoma, had a pacemaker. Mother at the age of 92yrs. Father Family Medical History: Coronary Artery Disease (CAD), Myocardial Infarction ([place]) Additional Family Medical History / Comment(s): Father of a [place] at the age of 63 yrs, diagnosed with CAD in his early 50s. Medications and Allergies Home Medications Medication Instructions Recorded Confirmed Type RX: Clopidogrel [Plavix] 75 mg PO DAILY #30 tab 08/19/20 03/03/24 Rx Ibuprofen [Motrin] 800 mg PO Q8H 10/26/21 03/03/24 History RX: Ipratropium-Albuterol Nebulize 3 ml INHALATION TID PRN 10/26/21 03/03/24 History [Duoneb 0.5 mg-3 mg/3 ml Soln] Metoprolol Succinate [Metoprolol 25 mg PO DAILY 04/03/23 03/03/24 History Succinate ER] RX: Baclofen 10 mg PO DAILY 04/03/23 03/03/24 History Rosuvastatin [Crestor] 40 mg PO DAILY 04/03/23 03/03/24 History Fluticasone/Umeclidin/Vilanter 1 puff INHALATION RT-DAILY 03/03/24 03/03/24 History [Trelegy Ellipta 100-62.5-25] hydroCHLOROthiazide [Hydrodiuril] 12.5 mg PO DAILY 03/03/24 03/03/24 History Allergies Allergy/AdvReac Type Severity Reaction Status Date / Time adhesive Allergy blisters Verified 03/03/24 12:01 latex Allergy Rash/Hives Verified 03/03/24 12:01 Physical Exam Vitals: Vital Signs Temp Pulse Resp BP Pulse Ox 03/03/24 15:00 82 20 137/68 96 03/03/24 13:59 78 03/03/24 13:52 70 03/03/24 13:03 69 20 149/78 95 03/03/24 10:58 98.2 F 73 16 115/75 97 Intake and Output 03/03/24 03/03/24 03/03/24 06:59 14:59 22:59 Other: Weight 75.296 kg GENERAL: The patient is alert and oriented x3, not in any acute distress. Well developed, well nourished. HEENT: Pupils are round and equally reacting to light. EOMI. No scleral icterus. No conjunctival pallor. Normocephalic, atraumatic. No pharyngeal erythema. No thyromegaly. CARDIOVASCULAR: S1 and S2 present. No murmurs, rubs, or gallops. -PULMONARY: Chest is clear to auscultation, no wheezing , n bilateral basal crackles. ABDOMEN: Soft, nontender, nondistended, normoactive bowel sounds. No palpable organomegaly. MUSCULOSKELETAL: No joint swelling or deformity. -EXTREMITIES: No cyanosis, clubbing,. Bilateral pitting leg edema. NEUROLOGICAL: Gross neurological examination did not reveal any focal deficits. SKIN: No rashes. no petechiae. Results CBC & Chem 7: 03/03/24 11:29 03/03/24 11:29 Labs: Abnormal Lab Results - Last 24 Hours (Table) 03/03/24 03/03/24 Range/Units 11:29 11:29 PT 9.8 L (10.0-12.5) sec Sodium 125 L (137-145) mmol/L Chloride 95 L (98-107) mmol/L Assessment and Plan Assessment: Acute CHF exacerbation, unknown ejection fraction Hyponatremia Obesity Hypertension Hyperlipidemia History of coronary artery disease History of TIA Osteoarthritis Plan: Continue with diuretics Continue with fluid restriction Cardiology consult Monitor sodium closely Hold hydrochlorothiazide GI and DVT prophylaxis
[2024-03-03] MEDS: IPRATROPIUM-ALBUTEROL 3 ML NEB INHALATION PRN (20:00)
[2024-03-03] MEDS: HYDROcodone/APAP 5-325MG 1 EACH TAB PO PRN (23:24)
--- NOTE | 2024-03-04 01:17 | US ---
Site ID [facility] Patient Becky Alvarenga M ID [id number] Age/Gender: 79Y, F Order # [id number] Procedure US venous doppler duplex LE BI Date 03/03/2024 9:51:43 PM EXAMINATION TYPE: US venous doppler duplex LE BI DATE OF EXAM: 03/03/2024 8:42 PM COMPARISON: NONE CLINICAL INDICATION: Female, 79 years old with history of leg swelling; Swelling. Patient on Plavix a nd baby aspirin. SIDE PERFORMED: Bilateral TECHNIQUE: The lower extremity deep venous system is examined utilizing real time linear array sonog nila with graded compression, doppler sonography and color-flow sonography. VESSELS IMAGED: Common Femoral Vein Deep Femoral Vein Greater Saphenous Vein * Femoral Vein Popliteal Vein Small Saphenous Vein * Proximal Calf Veins (* superficial vessels) Exam is slightly limited due to edema Right Leg: No evidence of DVT Left Leg: No evidence of DVT IMPRESSION: No ultrasound evidence for deep venous thrombosis of the bilateral lower extremity.
[2024-03-04] MEDS: ONDANSETRON 4 MG/2 ML VIAL IVP PRN (01:26)
[2024-03-04 02:39] VITALS: RESP 16
[2024-03-04] MEDS: SYMBICORT 80-4.5 MCG INHALER INHALATION SCH (07:59)
[2024-03-04] MEDS: IPRATROPIUM 0.5 MG/2.5 ML NEBU INHALATION SCH (07:59)
[2024-03-04] MEDS: CLOPIDOGREL 75 MG TAB PO SCH (08:10)
[2024-03-04] MEDS: BACLOFEN 10 MG TAB PO SCH (08:10)
[2024-03-04] MEDS: METOPROLOL SUCCINATE (ER) 25 MG TAB.ER.24H PO SCH (08:10)
[2024-03-04] MEDS: ATORVASTATIN 80 MG TAB PO SCH (08:10)
[2024-03-04 09:11] LABS: Basophils # (A) 0.05 X 10*3/uL (0.00-0.10); Basophils % (A) 0.7 %; Eosinophils # (A) 0.34 X 10*3/uL (0.04-0.35); Eosinophils % (A) 4.8 %; HCT 39.8 % (37.2-46.3); HGB 13.3 g/dL (12.0-15.0); Lymphocytes % (A) 25.2 %; MCH 29.8 pg (27.0-32.0); MCHC 33.4 g/dL (32.0-37.0); MCV 89.2 FL (80.0-97.0); Monocytes # (A) 0.93 X 10*3/uL (0.20-1.00); NRBC Per 100 WBC 0 X 10*3/uL (0.00-0.01); Neutrophils % (A) 55.9 %; Platelet Count 238 X 10*3/uL (140-440); RBC 4.46 X 10*6/uL (4.10-5.20); RDW 13.7 % (11.5-14.5); WBC 7.15 X 10*3/uL (4.50-10.00)
[2024-03-04] MEDS: ACETAMINOPHEN TAB 325 MG TAB PO PRN (09:19)
[2024-03-04 09:27] LABS: BUN/Creat Ratio 20.38 Ratio (12.00-20.00); Blood Urea Nitrogen 16.3 mg/dL (9.0-27.0); Calcium 8.6 mg/dL (8.7-10.3); Carbon Dioxide 22.3 mmol/L (21.6-31.8); Chloride 91 mmol/L (96-109); Glucose 105 mg/dL (70-110); Potassium 4.3 mmol/L (3.5-5.5); Sodium 125 mmol/L (135-145)
--- NOTE | 2024-03-04 10:42 | P.NPCON ---
History of Present Illness - Reason for Consult hyponatremia - History of Present Illness Reason for consultation: Hyponatremia History of present illness: Patient is a 79-year-old female seen in renal consultation for hyponatremia. Patient sodium level this admission was 125 and is stable at 125 this morning. She did receive IV fluids for a few hours overnight. Patient came to the hospital due to lower extremity edema and shortness of breath. Patient states edema has improved. She is currently on room air. Echocardiogram is being performed. Patient has history of coronary disease and is status post CABG. Patient was taking hydrochlorothiazide outpatient. She admits to drinking 216 ounce bottles of water and 3 cups of coffee on a daily basis. Denies use of soda and alcohol. Denies personal history of malignancy except for skin cancer. Denies chest pain. No vomiting or diarrhea. Oral intake has been fair. Vital signs are stable. General: No acute distress. HEENT: Head exam is unremarkable. Cut the LUNGS: No audible rhonchi or wheezes. HEART: Rate and Rhythm are regular. Cut the ABDOMEN: Nontender. EXTREMITITES: No edema. Past Medical History Past Medical History: Coronary Artery Disease (CAD), Cancer, CVA/TIA, Hyperlipidemia, Hypertension, Osteoarthritis (OA) Additional Past Medical History / Comment(s): skin cancer with removals, arthritis multiple joints, back and cervical pain, ?TIA A teens-shows up on scan?, PULMONARY FIBROSIS, HAD A KIDNEY FAILURE IN THE ICU. SEPSIS FOLLOWING OPEN HEART SURGERY- WAS IN HOSPITAL FOR 5 MONTHS History of Any Multi-Drug Resistant Organisms: None Reported Past Surgical History: Cardiac Valve Replacement, Cholecystectomy, Coronary Bypass/CABG, Heart Catheterization, Tonsillectomy, Tubal Ligation Additional Past Surgical History / Comment(s): 2--21 CABG, 2 cardiac caths without intervention, bilateral cataract removal with lens implants, skin cancer removals, cyst removed from neck, colonoscopy, cervical fusion Past Anesthesia/Blood Transfusion Reactions: No Reported Reaction Additional Past Anesthesia/Blood Transfusion Reaction / Comment(s): Pt has never received blood. Past Psychological History: No Psychological Hx Reported Additional Psychological History / Comment(s): Pt resides with her spouse. She drives. Smoking Status: Former smoker Past Alcohol Use History: Rare Additional Past Alcohol Use History / Comment(s): Pt started smoking in 1961 and quit in 1981. She smoked one and half packs per day. Past Drug Use History: None Reported - Past Family History Brother(s) Family Medical History: Coronary Artery Disease (CAD) Additional Family Medical History / Comment(s): "bad heart" aneurysm Sister(s) Family Medical History: Cancer Additional Family Medical History / Comment(s): breast cancer Mother Family Medical History: Cancer, Coronary Artery Disease (CAD) Additional Family Medical History / Comment(s): Lymphoma, had a pacemaker. Mother at the age of 92yrs. Father Family Medical History: Coronary Artery Disease (CAD), Myocardial Infarction ([place]) Additional Family Medical History / Comment(s): Father of a [place] at the age of 63 yrs, diagnosed with CAD in his early 50s. Medications and Allergies Home Medications Medication Instructions Recorded Confirmed Type Clopidogrel [Plavix] 75 mg PO DAILY #30 tab 08/19/20 03/03/24 Rx Ibuprofen [Motrin] 800 mg PO Q8H 10/26/21 03/03/24 History Ipratropium-Albuterol Nebulize 3 ml INHALATION TID PRN 10/26/21 03/03/24 History [Duoneb 0.5 mg-3 mg/3 ml Soln] Baclofen 10 mg PO DAILY 04/03/23 03/03/24 History Metoprolol Succinate [Metoprolol 25 mg PO DAILY 04/03/23 03/03/24 History Succinate ER] Rosuvastatin [Crestor] 40 mg PO DAILY 04/03/23 03/03/24 History Fluticasone/Umeclidin/Vilanter 1 puff INHALATION RT-DAILY 03/03/24 03/03/24 History [Trelegy Ellipta 100-62.5-25] hydroCHLOROthiazide [Hydrodiuril] 12.5 mg PO DAILY 03/03/24 03/03/24 History Allergies Allergy/AdvReac Type Severity Reaction Status Date / Time adhesive Allergy blisters Verified 03/03/24 12:01 latex Allergy Rash/Hives Verified 03/03/24 12:01 Physical Exam Vitals: Vital Signs Temp Pulse Pulse Pulse Resp BP BP 03/04/24 08:12 64 03/04/24 07:59 60 03/04/24 07:10 97.7 F 67 16 119/70 03/04/24 01:39 98.5 F 72 16 138/77 03/03/24 20:12 72 03/03/24 20:01 70 03/03/24 19:35 98.3 F 72 20 158/81 03/03/24 16:09 97.6 F 72 17 163/71 03/03/24 15:00 82 20 137/68 03/03/24 13:59 78 03/03/24 13:52 70 03/03/24 13:03 69 20 149/78 03/03/24 10:58 98.2 F 73 16 115/75 Pulse Ox 03/04/24 08:12 03/04/24 07:59 03/04/24 07:10 98 03/04/24 01:39 97 03/03/24 20:12 03/03/24 20:01 03/03/24 19:35 97 03/03/24 16:09 96 03/03/24 15:00 96 03/03/24 13:59 03/03/24 13:52 03/03/24 13:03 95 03/03/24 10:58 97 Intake and Output 03/03/24 03/04/24 03/04/24 22:59 06:59 14:59 Intake Total 221 400 Balance 221 400 Intake: Oral 221 400 Other: Voiding Method Toilet # Voids 1 1 1 Weight 75.296 kg Results - Lab Results Most recent lab results Calcium 8.6 mg/dL (8.7-10.3) L 03/04/24 06:09 Magnesium 1.7 mg/dL (1.6-2.3) 03/03/24 11:29 03/04/24 06:09 03/04/24 06:09 Assessment and Plan Plan: Assessment: 1. Hyponatremia, slightly hypervolemic. No improvement in sodium level with normal saline. Worsened from the use of thiazide diuretic. TSH normal. Sodium level stable at 125 this morning. 2. Volume overload. 3. Coronary artery disease status post CABG. Plan: Maintain off of IV fluids. Add 1500 cc fluid restriction. Samsca 7.5 mg once today. Follow-up urine studies. Repeat sodium level this afternoon. Follow-up echocardiogram. Avoid thiazide diuretics. Thank you for the consultation. I will continue to follow the patient with you during her hospital stay.
[2024-03-04] MEDS: IPRATROPIUM 0.5 MG/2.5 ML NEBU INHALATION ONE (11:32)
[2024-03-04] MEDS: HYDROcodone/APAP 5-325MG 1 EACH TAB ONE (11:32)
[2024-03-04] MEDS: ONDANSETRON 4 MG/2 ML VIAL ONE ×2 (11:32→11:33)
[2024-03-04] MEDS: CLOPIDOGREL 75 MG TAB ONE (11:33)
[2024-03-04] MEDS: ATORVASTATIN 80 MG TAB ONE (11:33)
[2024-03-04] MEDS: ACETAMINOPHEN TAB 325 MG TAB ONE (11:33)
--- NOTE | 2024-03-04 11:55 | P.PN ---
Subjective Progress Note Date: 03/04/24 This is a pleasant 79 years old female with past medical history of multiple medical problems as below. Presents because of worsening dyspnea and leg edema for about 1 week without chest pain No other change in urine or bowel habits. No fever. She denies smoking or illicit drugs. She drinks alcohol occasionally She is hemodynamically stable Labs reviewed showing unremarkable CBC, BMP and liver enzymes except for low sodium 125 Chest x-ray showing CHF D-dimer negative at 0.3 proBNP is low at 434 Lactic acid 1 Troponin negative EKG showing sinus rhythm at [address]-T changes 03/04. Patient seen and examined. Still complaining of shortness of breath on exertion. Complaining of neck pain. REVIEW OF SYSTEMS: CONSTITUTIONAL: No fever, no malaise,. CARDIOVASCULAR: No chest pain, no palpitations, no syncope. PULMONARY: As mentioned above GASTROINTESTINAL: No diarrhea, no nausea, no vomiting, no abdominal pain. NEUROLOGICAL: No headaches, no weakness, PHYSICAL EXAMINATION: GENERAL: The patient is alert and oriented x3, ill looking HEENT: Pupils are round and equally reacting to light. EOMI. No scleral icterus. No conjunctival pallor. Normocephalic, atraumatic. No pharyngeal erythema. No thyromegaly. CARDIOVASCULAR: S1 and S2 present. No murmurs, rubs, or gallops. PULMONARY: Diminished breath sounds at the bases bilaterally ABDOMEN: Soft, nontender, nondistended, normoactive bowel sounds. No palpable organomegaly. MUSCULOSKELETAL: No joint swelling or deformity. EXTREMITIES: No cyanosis, clubbing, or pedal edema. NEUROLOGICAL: Gross neurological examination did not reveal any focal deficits. SKIN: No rashes. Assessment and plan Hyponatremia Acute CHF Obesity Hypertension Hyperlipidemia History of coronary artery disease History of TIA Osteoarthritis Monitor vital signs Monitor CBC Monitor CMP Continue telemetry monitoring Follow-up on 2D echo Strict I's and O's, daily weights Serial electrolytes Tolvaptan ordered Nephrology following Cardiology following Labs and medication were reviewed.. Continue same treatment. Continue with symptomatic treatment. Resume home medication. Monitor labs and vitals. DVT and GI prophylaxis. Further recommendations as per clinical course of the patient Dictation was produced using [employer] dictation software. please excuse any grammatical, word or spelling errors. Objective - Vital Signs Vital signs: Vital Signs Temp 97.7 F 03/04/24 07:10 Pulse 64 03/04/24 08:12 Resp 16 03/04/24 07:10 BP 119/70 03/04/24 07:10 Pulse Ox 98 03/04/24 07:10 FiO2 Intake & Output 03/03/24 03/04/24 03/04/24 18:59 06:59 18:59 Intake Total 221 400 Balance 221 400 Weight 75.296 kg Intake: Oral 221 400 Other: Voiding Method Toilet # Voids 1 1 1 - Labs CBC & Chem 7: 03/04/24 06:09 03/04/24 06:09 Labs: Abnormal Lab Results - Last 24 Hours (Table) 03/03/24 03/03/24 03/03/24 Range/Units 11:29 11:29 21:39 PT 9.8 L (10.0-12.5) sec Sodium 125 L 124 L (137-145) mmol/L Chloride 95 L 90 L (98-107) mmol/L BUN/Creatinine Ratio (12.00-20.00) Ratio Calcium (8.7-10.3) mg/dL 03/04/24 Range/Units 06:09 PT (10.0-12.5) sec Sodium 125 L (137-145) mmol/L Chloride 91 L (98-107) mmol/L BUN/Creatinine Ratio 20.38 H (12.00-20.00) Ratio Calcium 8.6 L (8.7-10.3) mg/dL
[2024-03-04] MEDS: IBUPROFEN 400 MG TAB PO PRN (12:47)
--- NOTE | 2024-03-04 13:38 | P.CRDCN ---
History of Present Illness History of present illness: HISTORY OF PRESENT ILLNESS: This is a 79-year-old female with a past medical history significant for paroxysmal atrial fibrillation, pulmonary fibrosis, coronary artery disease with previous CABG, and aortic stenosis. Patient follows in the office with Dr. Sloan. We have been asked to see the patient in consultation for CHF. Patient examined at the bedside. Patient presented to the hospital with a chief complaint of shortness of breath. She reports increased shortness of breath over the past week. She also reports a cough which is chronic for her. Patient states that she was prescribed hydrochlorothiazide and took it for 3 days prior to coming to the hospital. She feels as though her shortness of breath may be related to her lungs and is requesting to be started on steroids. DIAGNOSTICS: - EKG reveals sinus mechanism with no signs of acute ischemia - Lower extremity Doppler, negative for DVT bilaterally - Chest xray mild cardiomegaly and interstitial densities. Correlate for mild pulmonary vascular congestion - Laboratory data: WBC 7.15. Hemoglobin 13.3. Platelet count 238. D-dimer 0.36. Sodium 125. Potassium 4.3. BUN 16. Creatinine 0.8. Troponin negative x 1. proBNP 434. - Current home cardiac medications include Plavix 75 mg daily, rosuvastatin 40 m g daily, hydrochlorothiazide 12.5 mg daily, metoprolol succinate 25 mg daily - Most recent echocardiogram obtained in August 2020 revealed ejection fraction 55 to 60%, mild aortic stenosis, mild MR, mild TR - Cardiac catheterization history: 07/2020 revealing significant distal left main disease by IVUS and mild to moderate disease in the left anterior descending artery and RCA. REVIEW OF SYSTEMS: At the time of my exam: CONSTITUTIONAL: Denies fever or chills. HEENT: Denies blurred vision, vision changes, or eye pain. Denies hemoptysis CARDIOVASCULAR: Denies chest pain. Denies orthopnea. Denies PND. Denies palpitations RESPIRATORY: Denies shortness of breath. GASTROINTESTINAL: Denies abdominal pain. Denies nausea or vomiting. HEMATOLOGIC: Denies bleeding disorders. GENITOURINARY: Denies any blood in urine. SKIN: Denies pruitis. Denies rash. PHYSICAL EXAM: VITAL SIGNS: Reviewed. GENERAL: Well-developed in no acute distress. HEENT: Head is normocephalic. Pupils are equal, round. Sclerae anicteric. Mucous membranes of the mouth are moist. Neck supple. No JVD or thyromegaly LUNGS: Respirations even and unlabored. Lungs diminished to auscultation bilaterally. HEART: Regular rate and rhythm. S1 and S2 heard. + systolic murmur. ABDOMEN: Soft. Nondistended. Nontender. EXTREMITIES: Normal range of motion. No clubbing or cyanosis. Peripheral pulses intact. Trace lower extremity edema NEUROLOGIC: Awake and alert. Oriented x 3. ASSESSMENT: Shortness of breath, patient not in acute CHF on examination Hyponatremia Pulmonary fibrosis Paroxysmal atrial fibrillation, patient not on anticoagulation outpatient due to excessive bruising and unable to afford anticoagulation per cardiology office notes Coronary artery disease with previous CABG, 2020 Moderate aortic stenosis PLAN: 2D echo ordered. Await results Continue current cardiac medications Nephrology following for hyponatremia. Continue to monitor sodium levels. Consult pulmonary for evaluation Further recommendations pending patient course Nurse practitioner note has been reviewed by physician. Signing provider agrees with the documented findings, assessment, and plan of care documented by [employer] as a scribe. Past Medical History Past Medical History: Coronary Artery Disease (CAD), Cancer, CVA/TIA, Hyperlipidemia, Hypertension, Osteoarthritis (OA) Additional Past Medical History / Comment(s): skin cancer with removals, arthritis multiple joints, back and cervical pain, ?TIA A teens-shows up on scan?, PULMONARY FIBROSIS, HAD A KIDNEY FAILURE IN THE ICU. SEPSIS FOLLOWING OPEN HEART SURGERY- WAS IN HOSPITAL FOR 5 MONTHS History of Any Multi-Drug Resistant Organisms: None Reported Past Surgical History: Cardiac Valve Replacement, Cholecystectomy, Coronary Bypass/CABG, Heart Catheterization, Tonsillectomy, Tubal Ligation Additional Past Surgical History / Comment(s): 2--21 CABG, 2 cardiac caths without intervention, bilateral cataract removal with lens implants, skin cancer removals, cyst removed from neck, colonoscopy, cervical fusion Past Anesthesia/Blood Transfusion Reactions: No Reported Reaction Additional Past Anesthesia/Blood Transfusion Reaction / Comment(s): Pt has never received blood. Past Psychological History: No Psychological Hx Reported Additional Psychological History / Comment(s): Pt resides with her spouse. She drives. Smoking Status: Former smoker Past Alcohol Use History: Rare Additional Past Alcohol Use History / Comment(s): Pt started smoking in 3 and quit in 1981. She smoked one and half packs per day. Past Drug Use History: None Reported - Past Family History Brother(s) Family Medical History: Coronary Artery Disease (CAD) Additional Family Medical History / Comment(s): "bad heart" aneurysm Sister(s) Family Medical History: Cancer Additional Family Medical History / Comment(s): breast cancer Mother Family Medical History: Cancer, Coronary Artery Disease (CAD) Additional Family Medical History / Comment(s): Lymphoma, had a pacemaker. Mother at the age of 92yrs. Father Family Medical History: Coronary Artery Disease (CAD), Myocardial Infarction ([place]) Additional Family Medical History / Comment(s): Father of a [place] at the age of 63 yrs, diagnosed with CAD in his early 50s. Medications and Allergies Home Medications Medication Instructions Recorded Confirmed Type Clopidogrel [Plavix] 75 mg PO DAILY #30 tab 08/19/20 03/03/24 Rx Ibuprofen [Motrin] 800 mg PO Q8H 10/26/21 03/03/24 History Ipratropium-Albuterol Nebulize 3 ml INHALATION TID PRN 10/26/21 03/03/24 History [Duoneb 0.5 mg-3 mg/3 ml Soln] Baclofen 10 mg PO DAILY 04/03/23 03/03/24 History Metoprolol Succinate [Metoprolol 25 mg PO DAILY 04/03/23 03/03/24 History Succinate ER] Rosuvastatin [Crestor] 40 mg PO DAILY 04/03/23 03/03/24 History Fluticasone/Umeclidin/Vilanter 1 puff INHALATION RT-DAILY 03/03/24 03/03/24 History [Trelegy Ellipta 100-62.5-25] hydroCHLOROthiazide [Hydrodiuril] 12.5 mg PO DAILY 03/03/24 03/03/24 History Allergies Allergy/AdvReac Type Severity Reaction Status Date / Time adhesive Allergy blisters Verified 03/03/24 12:01 latex Allergy Rash/Hives Verified 03/03/24 12:01 Physical Exam Vitals: Vital Signs Temp Pulse Pulse Pulse Resp BP BP 03/04/24 08:12 64 03/04/24 07:59 60 03/04/24 01:39 98.5 F 72 16 138/77 03/03/24 20:12 72 03/03/24 20:01 70 03/03/24 19:35 98.3 F 72 20 158/81 03/03/24 16:09 97.6 F 72 17 163/71 03/03/24 15:00 82 20 137/68 03/03/24 13:59 78 03/03/24 13:52 70 03/03/24 13:03 69 20 149/78 03/03/24 10:58 98.2 F 73 16 115/75 Pulse Ox 03/04/24 08:12 03/04/24 07:59 03/04/24 01:39 97 03/03/24 20:12 03/03/24 20:01 03/03/24 19:35 97 03/03/24 16:09 96 03/03/24 15:00 96 03/03/24 13:59 03/03/24 13:52 03/03/24 13:03 95 03/03/24 10:58 97 Intake and Output 03/03/24 03/04/24 03/04/24 22:59 06:59 14:59 Intake Total 221 Balance 221 Intake: Oral 221 Other: Voiding Method Toilet # Voids 1 1 Weight 75.296 kg Results 03/04/24 06:09 03/04/24 06:09 Cardiac Enzymes 03/03/24 03/03/24 Range/Units 11:29 11:29 AST 33 (14-36) U/L Troponin I <0.012 (0.000-0.034) ng/mL Coagulation 03/03/24 Range/Units 11:29 PT 9.8 L (10.0-12.5) sec APTT 25.9 (22.0-30.0) sec CBC 03/03/24 Range/Units 11:29 WBC 8.0 (3.8-10.6) k/uL RBC 4.61 (3.80-5.40) m/uL Hgb 13.9 (11.4-16.0) gm/dL Hct 40.6 (34.0-46.0) % Plt Count 218 (150-450) k/uL Comprehensive Metabolic Panel 03/03/24 03/03/24 Range/Units 11:29 21:39 Sodium 125 L 124 L (137-145) mmol/L Potassium 4.2 4.0 (3.5-5.1) mmol/L Chloride 95 L 90 L (98-107) mmol/L Carbon Dioxide 24 28 (22-30) mmol/L BUN 17 (7-17) mg/dL Creatinine 0.69 (0.52-1.04) mg/dL Glucose 95 (74-99) mg/dL Calcium 9.3 (8.4-10.2) mg/dL AST 33 (14-36) U/L ALT 25 (4-34) U/L Alkaline Phosphatase 79 (38-126) U/L Total Protein 6.5 (6.3-8.2) g/dL Albumin 4.0 (3.5-5.0) g/dL Current Medications Generic Name Dose Route Start Last Admin Trade Name Freq PRN Reason Stop Dose Admin Acetaminophen 325 mg 03/03/24 20:41 Acetaminophen Tab 325 Mg Tab PO Q6HR PRN Fever and/ or Pain Hydrocodone Bitart/Acetaminophen 1 each 03/03/24 20:42 03/03/24 23:24 Hydrocodone/Apap 5-325mg 1 Each Tab PO 1 each Q6HR PRN Administration Pain Albuterol/Ipratropium 3 ml 03/03/24 14:48 03/03/24 20:00 Ipratropium-Albuterol 3 Ml Neb INHALATION 3 ml RT-TID PRN Administration Shortness Of Breath Or Wheezing Atorvastatin Calcium 80 mg 03/04/24 09:00 03/04/24 08:10 Atorvastatin 80 Mg Tab PO 80 mg DAILY TORIBIO Administration Baclofen 10 mg 03/04/24 09:00 03/04/24 08:10 Baclofen 10 Mg Tab PO 10 mg DAILY TORIBIO Administration Budesonide/Formoterol Fumarate 2 puff 03/04/24 08:00 03/04/24 07:59 Symbicort 80-4.5 Mcg Inhaler INHALATION 2 puff RT-BID TORIBIO Administration Clopidogrel Bisulfate 75 mg 03/04/24 09:00 03/04/24 08:10 Clopidogrel 75 Mg Tab PO 75 mg DAILY TORIBIO Administration Sodium Chloride 1,000 mls @ 75 mls/hr 03/03/24 23:00 03/03/24 23:25 Saline 0.9% IV 03/04/24 10:59 75 mls/hr .[id number] TORIBIO Administration Ipratropium [place] 0.5 mg 03/04/24 08:00 03/04/24 07:59 Ipratropium 0.5 Mg/2.5 Ml Nebu INHALATION 0.5 mg RT-QID TORIBIO Administration Metoprolol Succinate 25 mg 03/04/24 09:00 03/04/24 08:10 Metoprolol Succinate (Er) 25 Mg Tab.Er.24h PO 25 mg DAILY TORIBIO Administration Naloxone HCl 0.2 mg 03/03/24 14:44 Naloxone 0.4 Mg/Ml 1 Ml Vial IV Q2M PRN Opioid Reversal Ondansetron HCl 4 mg 03/04/24 01:13 03/04/24 08:09 Ondansetron 4 Mg/2 Ml Vial IVP 4 mg Q6HR PRN Administration Nausea And Vomiting Intake and Output 03/03/24 03/04/24 03/04/24 22:59 06:59 14:59 Intake Total 221 Balance 221 Intake: Oral 221 Other: Voiding Method Toilet # Voids 1 1 Weight 75.296 kg 03/03/24 11:29 03/03/24 21:39
--- NOTE | 2024-03-04 13:44 | CA ---
Transthoracic Echo Report Name: Becky Alvarenga Age: 79 Gender: F : 1945 Exam Date: 03/04/2024 09:22 Exam Location: [facility] Ht (in): 57 Wt (lb): 166 Ordering Physician: Edgar East DO Attending/Referring Phys: [employer] Lashonda Tolbert RDCS Procedure CPT: Indications: dyspnea Cardiac Hx: Technical Quality: Fair Contrast 1: Total Dose (mL): Contrast 2: Total Dose (mL): MEASUREMENTS (Male / Female) Normal Values 2D ECHO LV Diastolic Diameter PLAX 4.4 cm 4.2 - 5.9 / 3.9 - 5.3 cm LV Systolic Diameter PLAX 2.8 cm IVS Diastolic Thickness 1.2 cm 0.6 - 1.0 / 0.6 - 0.9 cm LVPW Diastolic Thickness 1.2 cm 0.6 - 1.0 / 0.6 - 0.9 cm LV Relative Wall Thickness 0.5 LVOT Diameter 2.1 cm LV Diastolic Volume MOD BP 55.4 cm??? 67 - 155 / 56 - 104 cm??? LV Systolic Volume MOD BP 22.2 cm??? 22 - 58 / 19 - 49 cm??? LV Ejection Fraction MOD BP 59.9 % >= 55 % LV Cardiac Index MOD BP 1210.6 cm???/min???m??? LV Diastolic Volume MOD 4C 57.7 cm??? LV Systolic Volume MOD 4C 23.5 cm??? LV Ejection Fraction MOD 4C 59.3 % LV Cardiac Index MOD 4C 1248.0 cm???/min???m??? LV Diastolic Length 4C 7.6 cm LV Systolic Length 4C 6.6 cm LV Diastolic Volume MOD 2C 51.2 cm??? LV Systolic Volume MOD 2C 17.4 cm??? LV Ejection Fraction MOD 2C 66.0 % LV Cardiac Index MOD 2C 1231.5 cm???/min???m??? LV Diastolic Length 2C 7.3 cm LV Systolic Length 2C 5.4 cm LA Volume 49.7 cm??? 18 - 58 / 22 - 52 cm??? LA Volume Index 27.9 cm???/m??? 16 - 28 cm???/m??? Ascending Aorta Diameter 3.2 cm DOPPLER AV Peak Velocity 348.4 cm/s AV Peak Gradient 48.6 mmHg AV Mean Velocity 251.9 cm/s AV Mean Gradient 27.6 mmHg AV Velocity Time Integral 82.3 cm LVOT Peak Velocity 132.2 cm/s LVOT Peak Gradient 7.0 mmHg LVOT Velocity Time Integral 28.7 cm LVOT Stroke Volume 104.2 cm??? LVOT Stroke Volume Index 62.7 ml/m??? LVOT Cardiac Index 3800.9 cm???/min???m??? AV Area Cont Eq vti 1.3 cm??? AV Area Cont Eq pk 1.4 cm??? MV Area PHT 3.8 cm??? Mitral E Point Velocity 58.3 cm/s Mitral A Point Velocity 86.9 cm/s Mitral E to A Ratio 0.7 MV Deceleration Time 201.4 ms TR Peak Velocity 330.8 cm/s TR Peak Gradient 43.8 mmHg PV Peak Velocity 131.0 cm/s PV Peak Gradient 6.9 mmHg FINDINGS Left Ventricle Left ventricular ejection fraction is estimated at 55-60 %. Mildly increased septal wall thickness. Mildly increased posterior wall thickness. Left ventricular cavity size normal. No obvious regional wall motion abnormalities. Right Ventricle Right ventricle not well visualized. Right Atrium Right atrium not well visualized. Left Atrium Normal left atrial size. Mitral Valve Structurally normal mitral valve. No mitral stenosis, regurgitation or prolapse. Aortic Valve Trileaflet aortic valve. Diffuse thickening of the aortic valve cusps with reduced excursion. Moderate aortic stenosis with a mean graient of 28mmHg. No aortic regurgitation. Tricuspid Valve Structurally normal tricuspid valve. No tricuspid stenosis. Trace tricuspid regurgitation. Pulmonic Valve Structurally normal pulmonic valve. No pulmonic stenosis. Mild pulmonic regurgitation. Pericardium No pericardial effusion. Aorta Normal size aortic root and proximal ascending aorta. CONCLUSIONS Left ventricular ejection fraction 55-60% Mildly increased left ventricular wall thickness Moderate aortic stenosis Trace tricuspid regurgitation Previewed by: Dr. Wesly Tobin DO (Electronically Signed) Final Date: 04 March 2024 13:44
[2024-03-04] MEDS: TOLVAPTAN 15 MG TABLET PO ONE (13:49)
--- NOTE | 2024-03-04 14:33 | P.CNPUL ---
History of Present Illness Consult date: 03/04/24 Requesting physician: Shashi Mendoza Reason for consult: dyspnea, cough, asthma, pulmonary fibrosis Chief complaint: Shortness of breath. History of present illness: Pulmonary consult dated March 04, 2024. 79-year-old female who is seen today in room 452. The patient presented to the emergency department, on November 01, complaining of shortness of breath, and lower extremity edema. I see the patient in the office for asthma, and pulmonary fibrosis. The patient also has a history of CAD with previous bypass, hyperlipidemia, CHF, chronic kidney disease, and arthritis. The patient natalia brown complained of increasing shortness of breath, for about 5 days prior to admission, as well as a lower extremity edema. She denied any fever or chills. She did have a bit of a cough, with occasional yellow phlegm production. She recently had a skin graft done on her nose, by one of the local ear nose and throat doctors. Current laboratory includes a white count 7.15, hemoglobin 13.3, hematocrit 39.8, and a normal platelet count. Coag studies were normal. Sodium 125, potassium 4.3, chloride 91, CO2 22, BUN 16, creatinine 0.8. The rest of the comprehensive metabolic profile looked pretty normal. The N- terminal proBNP was only 434. Troponin was less than 0.012. Viral screen was negative. Chest x-ray shows cardiomegaly, and some interstitial changes, consistent with mild fluid overload in my opinion. Doppler studies of the lower extremities, were negative for DVT. The ejection fraction, on the echocardiogram was 55 to 60%. There is also moderate aortic stenosis. Review of Systems REVIEW OF SYSTEMS: CONSTITUTIONAL: [Negative.] NEUROLOGIC: [ Negative.] HEENT: [ Negative.] CARDIAC: Shortness of breath, lower extremity edema. PULMONARY: Shortness of breath, cough, and phlegm production. GI: [Negative.] : [Negative.] RHEUMATOLOGIC: [ Negative.] IMMUNOLOGIC: [ Negative.] ENDOCRINE: [Negative. ] DERMATOLOGIC: [Negative.] Past Medical History Past Medical History: Coronary Artery Disease (CAD), Cancer, CVA/TIA, Hyperlipidemia, Hypertension, Osteoarthritis (OA) Additional Past Medical History / Comment(s): skin cancer with removals, arthritis multiple joints, back and cervical pain, ?TIA A teens-shows up on scan?, PULMONARY FIBROSIS, HAD A KIDNEY FAILURE IN THE ICU. SEPSIS FOLLOWING OPEN HEART SURGERY- WAS IN HOSPITAL FOR 5 MONTHS History of Any Multi-Drug Resistant Organisms: None Reported Past Surgical History: Cardiac Valve Replacement, Cholecystectomy, Coronary Bypass/CABG, Heart Catheterization, Tonsillectomy, Tubal Ligation Additional Past Surgical History / Comment(s): 2--21 CABG, 2 cardiac caths without intervention, bilateral cataract removal with lens implants, skin cancer removals, cyst removed from neck, colonoscopy, cervical fusion Past Anesthesia/Blood Transfusion Reactions: No Reported Reaction Additional Past Anesthesia/Blood Transfusion Reaction / Comment(s): Pt has never received blood. Past Psychological History: No Psychological Hx Reported Additional Psychological History / Comment(s): Pt resides with her spouse. She drives. Smoking Status: Former smoker Past Alcohol Use History: Rare Additional Past Alcohol Use History / Comment(s): Pt started smoking in 1961 and quit in 1981. She smoked one and half packs per day. Past Drug Use History: None Reported - Past Family History Brother(s) Family Medical History: Coronary Artery Disease (CAD) Additional Family Medical History / Comment(s): "bad heart" aneurysm Sister(s) Family Medical History: Cancer Additional Family Medical History / Comment(s): breast cancer Mother Family Medical History: Cancer, Coronary Artery Disease (CAD) Additional Family Medical History / Comment(s): Lymphoma, had a pacemaker. Mother at the age of 92yrs. Father Family Medical History: Coronary Artery Disease (CAD), Myocardial Infarction (AR) Additional Family Medical History / Comment(s): Father of a AR at the age of 63 yrs, diagnosed with CAD in his early 50s. Medications and Allergies Home Medications Medication Instructions Recorded Confirmed Type Clopidogrel [Plavix] 75 mg PO DAILY #30 tab 08/19/20 03/03/24 Rx Ibuprofen [Motrin] 800 mg PO Q8H 10/26/21 03/03/24 History Ipratropium-Albuterol Nebulize 3 ml INHALATION TID PRN 10/26/21 03/03/24 History [Duoneb 0.5 mg-3 mg/3 ml Soln] Baclofen 10 mg PO DAILY 04/03/23 03/03/24 History Metoprolol Succinate [Metoprolol 25 mg PO DAILY 04/03/23 03/03/24 History Succinate ER] Rosuvastatin [Crestor] 40 mg PO DAILY 04/03/23 03/03/24 History Fluticasone/Umeclidin/Vilanter 1 puff INHALATION RT-DAILY 03/03/24 03/03/24 History [Trelegy Ellipta 100-62.5-25] hydroCHLOROthiazide [Hydrodiuril] 12.5 mg PO DAILY 03/03/24 03/03/24 History Allergies Allergy/AdvReac Type Severity Reaction Status Date / Time adhesive Allergy blisters Verified 03/03/24 12:01 latex Allergy Rash/Hives Verified 03/03/24 12:01 Physical Exam Osteopathic Statement: *. No significant issues noted on an osteopathic structural exam other than those noted in the History and Physical/Consult. Vitals: Vital Signs Temp Pulse Pulse Pulse Resp BP BP 03/04/24 12:07 76 03/04/24 11:54 76 03/04/24 08:12 64 03/04/24 07:59 60 03/04/24 07:10 97.7 F 67 16 119/70 03/04/24 01:39 98.5 F 72 16 138/77 03/03/24 20:12 72 03/03/24 20:01 70 03/03/24 19:35 98.3 F 72 20 158/81 03/03/24 16:09 97.6 F 72 17 163/71 03/03/24 15:00 82 20 137/68 Pulse Ox 03/04/24 12:07 03/04/24 11:54 03/04/24 08:12 03/04/24 07:59 03/04/24 07:10 98 03/04/24 01:39 97 03/03/24 20:12 03/03/24 20:01 03/03/24 19:35 97 03/03/24 16:09 96 03/03/24 15:00 96 Intake and Output 03/03/24 03/04/24 03/04/24 22:59 06:59 14:59 Intake Total 221 400 Balance 221 400 Intake: Oral 221 400 Other: Voiding Method Toilet # Voids 1 1 1 Weight 75.296 kg No acute distress, oriented 3. Currently on room air. No reinaldo respiratory distress. HEENT examination is grossly unremarkable. Mucous membranes are moist. No oral lesions. Neck supple. Full range of motion. No adenopathy thyromegaly or neck vein distention. Cardiovascular examination reveals regular rhythm rate. S1-S2 normal. No S3 or S4. No discernible murmur noted. Heart rate 76 bpm. Lungs reveal scattered crackles. No wheezes or rhonchi. Breath sounds equal. The patient is currently on room air. Abdomen soft bowel sounds are heard. No masses or tenderness. Extremities are intact. No cyanosis or clubbing. Mild edema noted. Skin reveals some chronic venous stasis changes to the lower extremities. Neurologic examination is brief but nonfocal. Results - Laboratory Findings CBC and BMP: 03/04/24 06:09 03/04/24 06:09 PT/INR, D-dimer PT 9.8 sec (10.0-12.5) L 03/03/24 11:29 INR 0.9 (<1.2) 03/03/24 11:29 D-Dimer 0.36 mg/L FEU (<0.60) 03/03/24 11:29 Abnormal lab findings: Abnormal Labs 03/03/24 03/03/24 03/03/24 11:29 11:29 21:39 PT 9.8 L Sodium 125 L 124 L Chloride 95 L 90 L BUN/Creatinine Ratio Calcium 03/04/24 06:09 PT Sodium 125 L Chloride 91 L BUN/Creatinine Ratio 20.38 H Calcium 8.6 L - Diagnostic Findings Chest x-ray: image reviewed Assessment and Plan Assessment: Shortness of breath, likely multifactorial, in part related to mild fluid overload/CHF, likely diastolic in nature, as well as mild asthma exacerbation. In addition, the patient does have some interstitial lung disease, which may be contributing to her shortness of breath. History of CAD with previous bypass surgery. Hyperlipidemia. History of congestive heart failure. Chronic kidney disease. History of arthritis. She of skin cancer. Degenerative joint disease. Plan: Plan dated March 04, 2024. The patient is seen today in room 452. The patient is sitting in a reclining chair, next to her hospital bed. She appears no acute distress. She is not using any supplemental oxygen. She complains of increasing shortness of breath, low sodium, and lower extremity edema. It appears that her shortness of ale ath, is likely multifactorial, in part related to her underlying asthma, mild fluid overload/diastolic CHF, and possible mild interstitial lung disease. Labs, x-rays, medications are reviewed. The patient's medications are appropriate. We will continue to follow. No additional recommendations are made. Prognosis is guarded. Time with Patient: Greater than 30
[2024-03-04] MEDS: SODIUM CHLORIDE TAB 1 GM TAB PO STA ×2 (17:42→22:13)
[2024-03-04] MEDS: SYMBICORT 160-4.5 MCG INHALER INHALATION SCH (20:30)
[2024-03-05 07:48] LABS: African American GFR (CKD) 74 (>60 ml/min/1.73 sqM); Blood Urea Nitrogen 19 mg/dL (7-17); Calcium 9.6 mg/dL (8.4-10.2); Carbon Dioxide 26 mmol/L (22-30); Glucose 97 mg/dL (74-99); Non-African American GFR(CKD) 64 (>60 ml/min/1.73 sqM); Potassium 4.8 mmol/L (3.5-5.1); Sodium 128 mmol/L (137-145)
[2024-03-05 08:12] LABS: Anion Gap 7 mmol/L; Chloride 95 mmol/L (98-107)
[2024-03-05 08:17] LABS: Basophils # (A) 0.1 k/uL (0-0.2); Basophils % (A) 1 %; Eosinophils # (A) 0.2 k/uL (0-0.7); Eosinophils % (A) 4 %; HCT 44.1 % (34.0-46.0); HGB 14.8 gm/dL (11.4-16.0); Lymphocytes # (A) 1.6 k/uL (1.0-4.8); Lymphocytes % (A) 24 %; MCH 30.5 pg (25.0-35.0); MCHC 33.5 g/dL (31.0-37.0); MCV 91.1 fL (80.0-100.0); Mean Platelet Volume 7.9; Monocytes # (A) 0.6 k/uL (0-1.0); Monocytes % (A) 9 %; Neutrophils % (A) 61 %; Platelet Count 263 k/uL (150-450); RBC 4.84 m/uL (3.80-5.40); RDW 14.3 % (11.5-15.5); WBC 6.6 k/uL (3.8-10.6)
--- NOTE | 2024-03-05 11:01 | P.PN ---
Subjective Patient is seen in follow-up for hyponatremia. Sodium level 128 this morning. On room air. Oral intake is good. No active complaints. Vital signs are stable. General: No acute distress. HEENT: Head exam is unremarkable. LUNGS: No audible rhonchi or wheezes. HEART: Rate and Rhythm are regular. ABDOMEN: Nontender. EXTREMITITES: No edema. Objective - Vital Signs Vital signs: Vital Signs Temp 98.2 F 03/05/24 07:10 Pulse 72 03/05/24 08:25 Resp 16 03/05/24 07:10 BP 111/66 03/05/24 07:10 Pulse Ox 97 03/05/24 08:13 FiO2 Intake & Output 03/04/24 03/05/24 03/05/24 18:59 06:59 18:59 Intake Total 520 Output Total 845 Balance 520 -845 Intake: Oral 520 Output: Urine 840 Emesis 5 Other: # Voids 2 1 - Labs CBC & Chem 7: 03/05/24 05:40 03/05/24 05:40 Labs: Abnormal Lab Results - Last 24 Hours (Table) 03/04/24 03/04/24 03/05/24 Range/Units 15:47 20:00 05:40 Sodium 121 L 119 L* 128 L (137-145) mmol/L Chloride 95 L (98-107) mmol/L BUN 19 H (7-17) mg/dL Assessment and Plan Plan: Assessment: 1. Hyponatremia, slightly hypervolemic. Now euvolemic. No improvement in sodium level with normal saline. Worsened from the use of thiazide diuretic. TSH normal. Sodium level [address] post [facility] March 04, 2024. Urine sodium 84 and urine osmolality 635. TSH normal. 2. Volume overload. Improved. 3. Coronary artery disease status post CABG. 4. Moderate aortic stenosis. Plan: Maintain fluid restriction. Avoid thiazide diuretics. Repeat BMP and magnesium level 2 to 3 days postdischarge. Follow-up outpatient in 1 week. Advised patient to maintain fluid restriction of less than 50 to 55 ounces per day upon discharge. Advised patient to monitor her weight closely at home and to notify physician if develops edema or gains more than 3 pounds in 1 week duration.
--- NOTE | 2024-03-05 12:31 | P.PN ---
Subjective Progress Note Date: 03/05/24 79-year-old female who is seen today in room 452. The patient presented to the emergency department, on November 01, complaining of shortness of breath, and lower extremity edema. I see the patient in the office for asthma, and pulmonary fibrosis. The patient also has a history of CAD with previous bypass, hyperlipidemia, CHF, chronic kidney disease, and arthritis. The patient apparently complained of increasing shortness of breath, for about 5 days prior to admission, as well as a lower extremity edema. She denied any fever or chills. She did have a bit of a cough, with occasional yellow phlegm production. She recently had a skin graft done on her nose, by one of the local ear nose and throat doctors. Current laboratory includes a white count 7.15, hemoglobin 13.3, hematocrit 39.8, and a normal platelet count. Coag studies were normal. Sodium 125, potassium 4.3, chloride 91, CO2 22, BUN 16, creatinine 0.8. The rest of the comprehensive metabolic profile looked pretty normal. The N-terminal proBNP was only 434. Troponin was less than 0.012. Viral screen was negative. Chest x-ray shows cardiomegaly, and some interstitial changes, consistent with mild fluid overload in my opinion. Doppler studies of the lower extremities, were negative for DVT. The ejection fraction, on the echocardiogram was 55 to 60%. There is also moderate aortic stenosis. The patient is seen today March 05, 2024 and follow-up on the regular medical floor. She is currently sitting up in a chair at the bedside. Awake and alert in no acute distress. Maintaining good O2 saturations in the 90s on room air. No IV fluids. She denies any worsening shortness of breath, cough or congestion. No dizziness or lightheadedness. White count 6.6. Hemoglobin 14.8. Platelets 263. Sodium 128. Potassium 4.8. Bicarb 26. BUN 19. Creatinine 0.87. Glucose 97. She is continued on DuoNeb and elations, Symbicort. Objective - Vital Signs Vital signs: Vital Signs Temp 98.2 F 03/05/24 07:10 Pulse 72 03/05/24 12:13 Resp 16 03/05/24 07:10 BP 111/66 03/05/24 07:10 Pulse Ox 97 03/05/24 08:13 FiO2 Intake & Output 03/04/24 03/05/24 03/05/24 18:59 06:59 18:59 Intake Total 520 120 Output Total 845 Balance 520 -845 120 Intake: Oral 520 120 Output: Urine 840 Emesis 5 Other: # Voids 2 1 - Exam GENERAL EXAM: Alert, very pleasant 79-year-old female, on room air, up in a chair, comfortable in no apparent distress. HEAD: Normocephalic. EYES: Normal reaction of pupils, equal size. NOSE: Clear with pink turbinates. THROAT: No erythema or exudates. NECK: No masses, no JVD. CHEST: No chest wall deformity. LUNGS: Equal air entry with no crackles, wheeze, rhonchi or dullness. CVS: S1 and S2 normal with no audible murmur, regular rhythm. ABDOMEN: No hepatosplenomegaly, normal bowel sounds, no guarding or rigidity. SPINE: No scoliosis or deformity SKIN: No rashes CENTRAL NERVOUS SYSTEM: No focal deficits, tone is normal in all 4 extremities. EXTREMITIES: There is no peripheral edema. No clubbing, no cyanosis. Perip heral pulses are intact. - Labs CBC & Chem 7: 03/05/24 05:40 03/05/24 05:40 Labs: Abnormal Lab Results - Last 24 Hours (Table) 03/04/24 03/04/24 03/05/24 Range/Units 15:47 20:00 05:40 Sodium 121 L 119 L* 128 L (137-145) mmol/L Chloride 95 L (98-107) mmol/L BUN 19 H (7-17) mg/dL Assessment and Plan Assessment: Shortness of breath, likely multifactorial, in part related to mild fluid overload/CHF, likely diastolic in nature, as well as mild asthma exacerbation. In addition, the patient does have some interstitial lung disease, which may be contributing to her shortness of breath. Hyponatremia, improving History of CAD with previous bypass surgery. Hyperlipidemia. History of congestive heart failure. Chronic kidney disease. History of arthritis. She of skin cancer. Degenerative joint disease. Plan: The patient was seen and evaluated Labs and medications reviewed Cleared for discharge from the pulmonary standpoint Stable and on room air Continue her home pulmonary medications Follow-up in our office in 1 week I have personally seen and examined the patient, performed the documentation and the assessment and plan as written. Number of minutes spent on the visit: 10.
--- NOTE | 2024-03-05 12:46 | P.DS ---
Providers Date of admission: 03/03/24 14:47 Expected date of discharge: 03/05/24 Attending physician: Shashi Mendoza MD Consults: 03/03/24 14:44 Consult Physician Routine Consulting Provider: Hoang Graves Consult Reason/Comments: eval for chf Do you want consulting provider notified?: Yes 03/03/24 22:56 Consult Physician Routine Consulting Provider: Angel Luis Duke Consult Reason/Comments: hyponatremia Do you want consulting provider notified?: Yes, Notify in am 03/04/24 11:44 Consult Physician Routine Consulting Provider: Aiden Guadalupe Consult Reason/Comments: SOB, hx pulmonary fibrosis Do you want consulting provider notified?: Yes Primary care physician: [facility] Course: Discharge diagnoses; Hyponatremia Acute CHF with preserved EF Obesity Hypertension Hyperlipidemia History of coronary artery disease History of TIA Osteoarthritis Hospital course; This is a pleasant 79 years old female with past medical history of multiple medical problems as below. Presents because of worsening dyspnea and leg edema for about 1 week without chest pain No other change in urine or bowel habits. No fever. She denies smoking or illicit drugs. She drinks alcohol occasionally She is hemodynamically stable Labs reviewed showing unremarkable CBC, BMP and liver enzymes except for low sodium 125 Chest x-ray showing CHF D-dimer negative at 0.3 proBNP is low at 434 Lactic acid 1 Troponin negative EKG showing sinus rhythm at [address]-T changes 03/04. Patient seen and examined. Still complaining of shortness of breath on exertion. Complaining of neck pain. 03/05. Patient seen and examined. Sodium levels improved to 128, nephrology recommended discontinuing HCTZ at discharge for hyponatremia. Pulmonology recommended outpatient follow-up. Cardiology evaluated 2D echo, aortic stenosis remains unchanged from before, rec cardiology recommend outpatient follow-up PHYSICAL EXAMINATION: GENERAL: The patient is alert and oriented x3, not in any acute distress. Well developed, well nourished. HEENT: Pupils are round and equally reacting to light. EOMI. No scleral icterus. No conjunctival pallor. Normocephalic, atraumatic. No pharyngeal erythema. No thyromegaly. CARDIOVASCULAR: S1 and S2 present. Systolic murmur audible in the aortic area PULMONARY: Chest is clear to auscultation, no wheezing or crackles. ABDOMEN: Soft, nontender, nondistended, normoactive bowel sounds. No palpable organomegaly. MUSCULOSKELETAL: No joint swelling or deformity. EXTREMITIES: No cyanosis, clubbing, or pedal edema. NEUROLOGICAL: Gross neurological examination did not reveal any focal deficits. SKIN: No rashes. Dictation was produced using [employer] dictation software. please excuse any grammatical, word or spelling errors. Plan - Discharge Summary New Discharge Prescriptions: Continue Clopidogrel [Plavix] 75 mg PO DAILY #30 tab Ipratropium-Albuterol Nebulize [Duoneb 0.5 mg-3 mg/3 ml Soln] 3 ml INHALATION TID PRN PRN Reason: Shortness Of Breath Or Wheezing Ibuprofen [Motrin] 800 mg PO Q8H Rosuvastatin [Crestor] 40 mg PO DAILY Baclofen 10 mg PO DAILY Metoprolol Succinate [Metoprolol Succinate ER] 25 mg PO DAILY Fluticasone/Umeclidin/Vilanter [Trelegy Ellipta 100-62.5-25] 1 puff INHALATION RT-DAILY Discontinued hydroCHLOROthiazide [Hydrodiuril] 12.5 mg PO DAILY Discharge Medication List Clopidogrel [Plavix] 75 mg PO DAILY #30 tab 08/19/20 [Rx] Ibuprofen [Motrin] 800 mg PO Q8H 10/26/21 [History] Ipratropium-Albuterol Nebulize [Duoneb 0.5 mg-3 mg/3 ml Soln] 3 ml INHALATION TID PRN 10/26/21 [History] Baclofen 10 mg PO DAILY 04/03/23 [History] Metoprolol Succinate [Metoprolol Succinate ER] 25 mg PO DAILY 04/03/23 [History] Rosuvastatin [Crestor] 40 mg PO DAILY 04/03/23 [History] Fluticasone/Umeclidin/Vilanter [Trelegy Ellipta 100-62.5-25] 1 puff INHALATION RT-DAILY 03/03/24 [History] Follow up Appointment(s)/Referral(s): Rich Avila MD [Primary Care Provider] - 1-2 days Wesly Tobin DO [STAFF PHYSICIAN] - 1 Week Discharge Disposition: HOME SELF-CARE
--- NOTE | 2024-03-05 12:49 | P.PN ---
Subjective HISTORY OF PRESENT ILLNESS: This is a 79-year-old female with a past medical history significant for paroxysmal atrial fibrillation, pulmonary fibrosis, coronary artery disease with previous CABG, and aortic stenosis. Patient follows in the office with Dr. Sloan. We have been asked to see the patient in consultation for CHF. Patient examined at the bedside. Patient presented to the hospital with a chief complaint of shortness of breath. She reports increased shortness of breath over the past week. She also reports a cough which is chronic for her. Patient states that she was prescribed hydrochlorothiazide and took it for 3 days prior to coming to the hospital. She feels as though her shortness of breath may be related to her lungs and is requesting to be started on steroids. DIAGNOSTICS: - EKG reveals sinus mechanism with no signs of acute ischemia - Lower extremity Doppler, negative for DVT bilaterally - Chest xray mild cardiomegaly and interstitial densities. Correlate for mild pulmonary vascular congestion - Laboratory data: WBC 7.15. Hemoglobin 13.3. Platelet count 238. D-dimer 0.36. Sodium 125. Potassium 4.3. BUN 16. Creatinine 0.8. Troponin negative x 1. proBNP 434. - Current home cardiac medications include Plavix 75 mg daily, rosuvastatin 40 mg daily, hydrochlorothiazide 12.5 mg daily, metoprolol succinate 25 mg daily - Most recent echocardiogram obtained in August 2020 revealed ejection fraction 55 to 60%, mild aortic stenosis, mild MR, mild TR - Cardiac catheterization history: 07/2020 revealing significant distal left main disease by IVUS and mild to moderate disease in the left anterior descending artery and RCA. March 05, 2024 Patient examined this morning at the bedside. Patient currently denies chest pain or pressure. Sodium today 128. Echocardiogram completed revealing ejection fraction 55 to 60%, moderate aortic stenosis, trace TR, and mild pulmonic regurgitation. PHYSICAL EXAM: VITAL SIGNS: Reviewed. GENERAL: Well-developed in no acute distress. HEENT: Head is normocephalic. Pupils are equal, round. Sclerae anicteric. Mucous membranes of the mouth are moist. Neck supple. No JVD or thyromegaly LUNGS: Respirations even and unlabored. Lungs diminished to auscultation bilaterally. HEART: Regular rate and rhythm. S1 and S2 heard. + systolic murmur. ABDOMEN: Soft. Nondistended. Nontender. EXTREMITIES: Normal range of motion. No clubbing or cyanosis. Peripheral pul ses intact. Trace lower extremity edema NEUROLOGIC: Awake and alert. Oriented x 3. ASSESSMENT: Shortness of breath, patient not in acute CHF on examination Hyponatremia Pulmonary fibrosis Paroxysmal atrial fibrillation, patient not on anticoagulation outpatient due to excessive bruising and unable to afford anticoagulation per cardiology office notes Coronary artery disease with previous CABG, 2020 Moderate aortic stenosis PLAN: Continue current cardiac medications Patient is currently stable from a cardiac standpoint Patient to follow-up postdischarge with Dr. Sloan Nurse practitioner note has been reviewed by physician. Signing provider agrees with the documented findings, assessment, and plan of care documented by [employer] as a scribe. Objective - Vital Signs Vital signs: Vital Signs Temp 98.2 F 03/05/24 07:10 Pulse 72 03/05/24 08:25 Resp 16 03/05/24 07:10 BP 111/66 03/05/24 07:10 Pulse Ox 97 03/05/24 08:13 FiO2 Intake & Output 03/04/24 03/05/24 03/05/24 18:59 06:59 18:59 Intake Total 520 Output Total 845 Balance 520 -845 Intake: Oral 520 Output: Urine 840 Emesis 5 Other: # Voids 2 1 - Labs CBC & Chem 7: 03/05/24 05:40 03/05/24 05:40 Labs: Abnormal Lab Results - Last 24 Hours (Table) 03/04/24 03/04/24 03/04/24 Range/Units 06:09 15:47 20:00 Sodium 125 L 121 L 119 L* (135-145) mmol/L Chloride 91 L (96-109) mmol/L BUN (7-17) mg/dL BUN/Creatinine Ratio 20.38 H (12.00-20.00) Ratio Calcium 8.6 L (8.7-10.3) mg/dL 03/05/24 Range/Units 05:40 Sodium 128 L (135-145) mmol/L Chloride 95 L (96-109) mmol/L BUN 19 H (7-17) mg/dL BUN/Creatinine Ratio (12.00-20.00) Ratio Calcium (8.7-10.3) mg/dL
[2024-03-05 14:17] VITALS: TEMP 98.4
[2024-03-05 20:15] VITALS: BP 111/72; PULSE 80
--- NOTE | 2024-03-28 14:18 | CDI ---
Documentation Clarification Form Date: 03/28/2024 02:06:29 PM From: Rosio Ogden Phone: Admit Date: 03/03/2024 02:47:00 PM Patient Name: Becky Alvarenga Visit Number: [id number] Discharge Date: 03/05/2024 04:44:00 PM ATTENTION: The Clinical Documentation Specialists (CDI) and [facility] Coding Staff appreciate your assistance in clarifying documentation. Please respond to the clarification below the line at the bottom and electronically sign. The CDI & [facility] Coding staff will review the response and follow-up if needed. Please note: Queries are made part of the Legal Health Record. If you have any questions, please contact the author of this message via ITS. Doctor/Provider: Angel Luis Duek Unspecified CKD is documented per Consult Note 03/04 and Progress Note 03/05. Additional clarification regarding the stage of CKD is requested. History/Risk Factors: 79yo F, Hyponatremia, ADHF, obesity, HTN, HLD, CAD, Hx TIA, OA Clinical Indicators: BUN/Creatinine Ratio 20.38 BUN: 17 CR: 0.69 Af Am GFR: >90 Non AfAm GFR: 84 Treatment: Maintain fluidrestriction. Avoid thiazide diuretics. RepeatBMPand magnesium level 2 to 3 days post discharge. F/uOP in 1wk. Advised patient to maintain fluidrestrictionof less than 50 to 55 oz per day upon discharge. Advised patient to monitor her weight closely at home and to notify physician if developsedemaor gains more than 3 pounds in 1wk duration. Nephrology Consults: Maintain off of IV fluids. Add 1500 cc fluidrestriction. Samsca 7.5 mg once today. Follow-upurinestudies. Repeat sodium level this afternoon. Follow-upechocardiogram. Avoid thiazide diuretics. Please clarify the stage of the CKD, if known: [ ] Acute Kidney Failure only [ ] CKD Stage 1 [ ] CKD Stage 2 [ x ] Other, please specify __no vu or ckd [ ] Unable to determine Reference: National Kidney Foundation Stage 1 eGFR = 90 and kidney damage for =3 months Stage 2 eGFR 60-89 and kidney damage for =3 months Stage 3a eGFR 45-59 and kidney damage for =3 months Stage 3b eGFR 30-44 and kidney damage for =3 months Stage 4 eGFR 15-29 r and kidney damage for =3 months Stage 5 eGFR <15 and kidney damage for =3 months (Template last revised: July 2023) MTDD
== END 2024-03-05 16:44 | disposition home or self-care (01) | DRG 640 ==
LOC: 4SSUR 14:47
PROVIDERS: ADMIT Internal Medicine; ATTEND Internal Medicine
DX: E87.1 Hypo-osmolality and hyponatremia (principal); I50.31 Acute diastolic (congestive) heart failure; J45.901 Unspecified asthma with (acute) exacerbation; J84.10 Pulmonary fibrosis, unspecified; I11.0 Hypertensive heart disease with heart failure; I48.0 Paroxysmal atrial fibrillation; E66.9 Obesity, unspecified; Z68.35 Body mass index [BMI] 35.0-35.9, adult; I37.1 Nonrheumatic pulmonary valve insufficiency; I35.0 Nonrheumatic aortic (valve) stenosis; Z95.2 Presence of prosthetic heart valve; I25.10 Atherosclerotic heart disease of native coronary artery without angina pectoris; M19.90 Unspecified osteoarthritis, unspecified site; E78.5 Hyperlipidemia, unspecified; Z85.828 Personal history of other malignant neoplasm of skin; Z79.899 Other long term (current) drug therapy; Z79.51 Long term (current) use of inhaled steroids; Z79.1 Long term (current) use of non-steroidal anti-inflammatories (NSAID); Z79.02 Long term (current) use of antithrombotics/antiplatelets; Z91.048 Other nonmedicinal substance allergy status; Z91.040 Latex allergy status; Z86.73 Personal history of transient ischemic attack (TIA), and cerebral infarction without residual deficits; Z95.1 Presence of aortocoronary bypass graft; Z87.891 Personal history of nicotine dependence

== ENCOUNTER 2024-04-12 20:00 | Inpatient (IN) | payer MEDICARE ==
--- NOTE | 2024-04-12 20:17 | ED ---
General Adult HPI - General Source: patient, RN notes reviewed Mode of arrival: ambulatory Limitations: no limitations <Vilma Kemp - Last Filed: 04/12/24 22:53> <Vivienne Caba - Last Filed: 04/15/24 02:24> - General Chief complaint: Upper Respiratory Infection Stated complaint: nausea,cough Time Seen by Provider: 04/12/24 20:06 - History of Present Illness Initial comments: This is a 79-year-old female who presents to the emergency department for coughing, shortness of breath, and weakness. States that over the last couple of days she has felt increasingly weak, short of breath, and has a productive cough. Denies any chest pain. Also states that she constantly feels like she is going to vomit. Denies any abdominal pain. Reports constipation but no diarrhea. Denies any fevers or chills. Denies any sick contacts. (Vilma Kemp) - Related Data Home Medications Medication Instructions Recorded Confirmed Ibuprofen [Motrin] 800 mg PO Q8H PRN 10/26/21 04/13/24 Ipratropium-Albuterol Nebulize 3 ml INHALATION RT-TID PRN 10/26/21 04/13/24 [Duoneb 0.5 mg-3 mg/3 ml Soln] Baclofen 10 mg PO DAILY 04/03/23 04/13/24 Metoprolol Succinate [Metoprolol 25 mg PO DAILY 04/03/23 04/13/24 Succinate ER] Fluticasone/Umeclidin/Vilanter 1 puff INHALATION RT-DAILY 03/03/24 04/13/24 [Trelegy Ellipta 100-62.5-25] Furosemide [Lasix] 20 mg PO DAILY 04/13/24 04/13/24 Nitrofurantoin Monohyd/M-Cryst 100 mg PO BID 04/13/24 04/13/24 [Macrobid] Rosuvastatin Calcium [Crestor] 40 mg PO DAILY 04/13/24 04/13/24 busPIRone HCL 5 mg PO BID 04/13/24 04/13/24 predniSONE See Taper PO DIRECTED 04/13/24 04/13/24 Previous Rx's Medication Instructions Recorded Clopidogrel [Plavix] 75 mg PO DAILY #30 tab 08/19/20 Allergies Allergy/AdvReac Type Severity Reaction Status Date / Time adhesive Allergy blisters Verified 04/12/24 20:04 latex Allergy Rash/Hives Verified 04/12/24 20:04 Review of Systems ROS Other: All systems not noted in ROS Statement are negative. <Vilma Kemp - Last Filed: 04/12/24 22:53> ROS Other: All systems not noted in ROS Statement are negative. <Vivienne Caba - Last Filed: 04/15/24 02:24> ROS Statement: Those systems with pertinent positive or pertinent negative responses have been documented in the HPI. Past Medical History Past Medical History: Coronary Artery Disease (CAD), Cancer, CVA/TIA, Hyperlipidemia, Hypertension, Osteoarthritis (OA) Additional Past Medical History / Comment(s): skin cancer with removals, arthritis multiple joints, back and cervical pain, ?TIA A teens-shows up on scan?, PULMONARY FIBROSIS, HAD A KIDNEY FAILURE IN THE ICU. SEPSIS FOLLOWING OPEN HEART SURGERY- WAS IN HOSPITAL FOR 5 MONTHS History of Any Multi-Drug Resistant Organisms: None Reported Past Surgical History: Cardiac Valve Replacement, Cholecystectomy, Coronary Bypass/CABG, Heart Catheterization, Tonsillectomy, Tubal Ligation Additional Past Surgical History / Comment(s): 2 CABG, 2 cardiac caths without intervention, bilateral cataract removal with lens implants, skin cancer removals, cyst removed from neck, colonoscopy, cervical fusion Past Anesthesia/Blood Transfusion Reactions: No Reported Reaction Additional Past Anesthesia/Blood Transfusion Reaction / Comment(s): Pt has never received blood. Past Psychological History: No Psychological Hx Reported Smoking Status: Former smoker Past Alcohol Use History: Rare Past Drug Use History: None Reported - Past Family History Brother(s) Family Medical History: Coronary Artery Disease (CAD) Additional Family Medical History / Comment(s): "bad heart" aneurysm Sister(s) Family Medical History: Cancer Additional Family Medical History / Comment(s): breast cancer Mother Family Medical History: Cancer, Coronary Artery Disease (CAD) Additional Family Medical History / Comment(s): Lymphoma, had a pacemaker. Mother at the age of 92yrs. Father Family Medical History: Coronary Artery Disease (CAD), Myocardial Infarction (M I) Additional Family Medical History / Comment(s): Father of a [place] at the age of 63 yrs, diagnosed with CAD in his early 50s. <Vilma Kemp - Last Filed: 04/12/24 22:53> General Exam Limitations: no limitations General appearance: alert, in no apparent distress Head exam: Present: atraumatic, normocephalic, normal inspection Respiratory exam: Present: normal lung sounds bilaterally. Absent: respiratory distress, wheezes, rales, rhonchi, stridor Cardiovascular Exam: Present: regular rate, normal rhythm, normal heart sounds. Absent: systolic murmur, diastolic murmur, rubs, gallop, clicks GI/Abdominal exam: Present: soft, normal bowel sounds. Absent: distended, tenderness, guarding, rebound, rigid Neurological exam: Present: alert, oriented X3, CN II-XII intact Psychiatric exam: Present: normal affect, normal mood Skin exam: Present: warm, dry, intact, normal color. Absent: rash <Vilma Kemp - Last Filed: 04/12/24 22:53> Course Vital Signs 04/12/24 04/12/24 04/12/24 20:01 20:30 20:46 Temperature 97.9 F Pulse Rate 85 108 H Respiratory 18 18 Rate Blood Pressure 149/73 147/92 O2 Sat by Pulse 94 L 96 91 L Oximetry 04/12/24 04/12/24 04/12/24 20:51 21:47 21:53 Temperature Pulse Rate 105 H 107 H Respiratory Rate Blood Pressure O2 Sat by Pulse 97 Oximetry 04/12/24 22:19 Temperature Pulse Rate 110 H Respiratory 18 Rate Blood Pressure 101/50 O2 Sat by Pulse 97 Oximetry Medical Decision Making - Lab Data Result diagrams: 04/12/24 20:39 04/12/24 20:39 - Radiology Data Radiology results: report reviewed, image reviewed <Vilma Kemp - Last Filed: 04/12/24 22:53> - Lab Data Result diagrams: 04/12/24 20:39 04/14/24 14:24 <Vivienne Caba - Last Filed: 04/15/24 02:24> - Medical Decision Making This is a 79 year old female who presents to the emergency department for coughing, shortness of breath, and weakness. Was pt. sent in by a medical professional or institution? @ -No Did you speak to anyone other than the patient for history? @ -No Did you review nursing and triage notes? @ -Yes, and I agree, it is accurate with regards to the patient's symptoms. Were old charts reviewed? @ -No Differential Diagnosis? @ -Differential Dyspnea: Coronary syndrome, arrhythmia, tamponade, asthma, COPD, pulmonary embolism, pneumonia, pneumothorax, pulmonary effusion, anaphylaxis, diabetic ketoacidosis, flailed chest, pulmonary contusion, diaphragmatic rupture, anemia, neuromuscular, this is not meant to be an all-inclusive list. EKG interpreted by me (3pts min.)? @ -EKG interpreted by me demonstrating the following: Sinus rhythm. Ventricular rate 83 bpm, AR interval 208 ms, QRS duration 118 ms, QTc 394 ms. X-rays interpreted by me (1pt min.)? @ -Chest x-ray obtained. My interpretation identifies no focal consolidation. CT interpreted by me (1pt min.)? @ -Not obtained U/S interpreted by me (1pt. min.)? @ -Not obtained What testing was considered but not performed? (CT, X-rays, U/S, labs)? Why? @ -None What meds were considered but not given? Why? @ -None Did you discuss the management of the patient with other professionals? @ -Yes, Ofelia Bryson with [facility], who accepts the patient for admission. Did you reconcile home meds? @ -No Was smoking cessation discussed for >3mins.? @ -No Was critical care preformed (if so, how long)? @ -No Were there social determinants of health that impacted care today? How? (Homelessness, low income, unemployed, alcoholism, drug addiction, transportation, low edu. Level, literacy, decrease access to med. care, half-way, rehab)? @ -No Was there de-escalation of care discussed even if they declined? (Discuss DNR or withdrawal of care, Hospice)? @ -No What co-morbidities impacted this encounter? (DM, HTN, Smoking, COPD, CAD, Cancer, CVA, Hep., AIDS, mental health diagnosis, sleep apnea, morbid obesity)? @ -CAD, HLD, HTN Was patient admitted / discharged? @ -Admitted. Lab work demonstrates hyponatremia with a sodium of 123. COVID, influenza, and RSV testing negative. Chest x-ray reveals prominent pulmonary vasculature and diffuse increased lung markings suggestive of congestive heart failure. BNP only 539. During prior visits when the patient has been hyponatremic, nephrology advised that she is slightly hypervolemic and she did not have any improvement in sodium level with normal saline. She was volume overloaded at that time and they advised maintaining her off of IV fluids. 40 mg of IV Lasix ordered for hypervolemic hyponatremia. Patient admitted to medicine for hyponatremia, weakness, and shortness of breath. Consult placed for nephrology. Case discussed with ED attending Dr. Caba Undiagnosed new problem with uncertain prognosis? @ -None Drug Therapy requiring intensive monitoring for toxicity (Heparin, Nitro, Insulin, Cardizem)? @ -None Were any procedures done? @ -None Diagnosis/symptom? @ -Hyponatremia, weakness, shortness of breath Acute, or Chronic, or Acute on Chronic? @ -Acute Uncomplicated (without systemic symptoms) or Complicated (systemic symptoms)? @ -Complicated Side effects of treatment? @ -None Exacerbation, Progression, or Severe Exacerbation] @ -Not applicable Poses a threat to life or bodily function? @ -Yes, low sodium levels can be life threatening. (Vilma Kemp) - Lab Data Lab Results 04/12/24 04/12/24 04/12/24 Range/Units 20:39 20:39 20:39 WBC 9.2 (3.8-10.6) k/uL RBC 4.85 (3.80-5.40) m/uL Hgb 14.1 (11.4-16.0) gm/dL Hct 42.3 (34.0-46.0) % MCV 87.2 (80.0-100.0) fL MCH 29.1 (25.0-35.0) pg MCHC 33.4 (31.0-37.0) g/dL RDW 13.5 (11.5-15.5) % Plt Count 242 (150-450) k/uL MPV 7.7 Neutrophils % 87 % Lymphocytes % 5 % Monocytes % 5 % Eosinophils % 2 % Basophils % 0 % Neutrophils # 8.0 H (1.3-7.7) k/uL Lymphocytes # 0.5 L (1.0-4.8) k/uL Monocytes # 0.4 (0-1.0) k/uL Eosinophils # 0.2 (0-0.7) k/uL Basophils # 0.0 (0-0.2) k/uL Sodium 123 L (137-145) mmol/L Potassium 4.4 (3.5-5.1) mmol/L Chloride 90 L (98-107) mmol/L Carbon Dioxide 25 (22-30) mmol/L Anion Gap 8 mmol/L BUN 13 (7-17) mg/dL Creatinine 0.67 (0.52-1.04) mg/dL Est GFR (CKD-EPI)AfAm >90 (>60 ml/min/1.73 sqM) Est GFR (CKD-EPI)NonAf 85 (>60 ml/min/1.73 sqM) Glucose 93 (74-99) mg/dL Plasma Lactic Acid Garrett 1.0 (0.7-2.0) mmol/L Calcium 9.2 (8.4-10.2) mg/dL Magnesium 1.7 (1.6-2.3) mg/dL Total Bilirubin 1.2 (0.2-1.3) mg/dL AST 38 H (14-36) U/L ALT 24 (4-34) U/L Alkaline Phosphatase 65 (38-126) U/L Troponin I (0.000-0.034) ng/mL NT-Pro-B Natriuret Pep pg/mL Total Protein 6.6 (6.3-8.2) g/dL Albumin 4.0 (3.5-5.0) g/dL Urine Color Urine Appearance (Clear) Urine pH (5.0-8.0) Ur Specific [place] (1.001-1.035) Urine Protein (Negative) Urine Glucose (UA) (Negative) Urine Ketones (Negative) Urine Blood (Negative) Urine Nitrite (Negative) Urine Bilirubin (Negative) Urine Urobilinogen (<2.0) mg/dL Ur Leukocyte Esterase (Negative) Urine RBC (0-5) /hpf Urine WBC (0-5) /hpf Ur Squamous Epith Cells (0-4) /hpf Urine Bacteria (None) /hpf Influenza Type A (PCR) (Not Detectd) Influenza Type B (PCR) (Not Detectd) RSV (PCR) (Not Detectd) SARS-CoV-2 (PCR) (Not Detectd) 04/12/24 04/12/24 04/12/24 Range/Units 20:39 20:39 20:46 WBC (3.8-10.6) k/uL RBC (3.80-5.40) m/uL Hgb (11.4-16.0) gm/dL Hct (34.0-46.0) % MCV (80.0-100.0) fL MCH (25.0-35.0) pg MCHC (31.0-37.0) g/dL RDW (11.5-15.5) % Plt Count (150-450) k/uL MPV Neutrophils % % Lymphocytes % % Monocytes % % Eosinophils % % Basophils % % Neutrophils # (1.3-7.7) k/uL Lymphocytes # (1.0-4.8) k/uL Monocytes # (0-1.0) k/uL Eosinophils # (0-0.7) k/uL Basophils # (0-0.2) k/uL Sodium (137-145) mmol/L Potassium (3.5-5.1) mmol/L Chloride (98-107) mmol/L Carbon Dioxide (22-30) mmol/L Anion Gap mmol/L BUN (7-17) mg/dL Creatinine (0.52-1.04) mg/dL Est GFR (CKD-EPI)AfAm (>60 ml/min/1.73 sqM) Est GFR (CKD-EPI)NonAf (>60 ml/min/1.73 sqM) Glucose (74-99) mg/dL Plasma Lactic Acid Garrett (0.7-2.0) mmol/L Calcium (8.4-10.2) mg/dL Magnesium (1.6-2.3) mg/dL Total Bilirubin (0.2-1.3) mg/dL AST (14-36) U/L ALT (4-34) U/L Alkaline Phosphatase (38-126) U/L Troponin I <0.012 (0.000-0.034) ng/mL NT-Pro-B Natriuret Pep 539 pg/mL Total Protein (6.3-8.2) g/dL Albumin (3.5-5.0) g/dL Urine Color Urine Appearance (Clear) Urine pH (5.0-8.0) Ur Specific [place] (1.001-1.035) Urine Protein (Negative) Urine Glucose (UA) (Negative) Urine Ketones (Negative) Urine Blood (Negative) Urine Nitrite (Negative) Urine Bilirubin (Negative) Urine Urobilinogen (<2.0) mg/dL Ur Leukocyte Esterase (Negative) Urine RBC (0-5) /hpf Urine WBC (0-5) /hpf Ur Squamous Epith Cells (0-4) /hpf Urine Bacteria (None) /hpf Influenza Type A (PCR) Not Detected (Not Detectd) Influenza Type B (PCR) Not Detected (Not Detectd) RSV (PCR) Not Detected (Not Detectd) SARS-CoV-2 (PCR) Not Detected (Not Detectd) 04/12/24 Range/Units 21:00 WBC (3.8-10.6) k/uL RBC (3.80-5.40) m/uL Hgb (11.4-16.0) gm/dL Hct (34.0-46.0) % MCV (80.0-100.0) fL MCH (25.0-35.0) pg MCHC (31.0-37.0) g/dL RDW (11.5-15.5) % Plt Count (150-450) k/uL MPV Neutrophils % % Lymphocytes % % Monocytes % % Eosinophils % % Basophils % % Neutrophils # (1.3-7.7) k/uL Lymphocytes # (1.0-4.8) k/uL Monocytes # (0-1.0) k/uL Eosinophils # (0-0.7) k/uL Basophils # (0-0.2) k/uL Sodium (137-145) mmol/L Potassium (3.5-5.1) mmol/L Chloride (98-107) mmol/L Carbon Dioxide (22-30) mmol/L Anion Gap mmol/L BUN (7-17) mg/dL Creatinine (0.52-1.04) mg/dL Est GFR (CKD-EPI)AfAm (>60 ml/min/1.73 sqM) Est GFR (CKD-EPI)NonAf (>60 ml/min/1.73 sqM) Glucose (74-99) mg/dL Plasma Lactic Acid Garrett (0.7-2.0) mmol/L Calcium (8.4-10.2) mg/dL Magnesium (1.6-2.3) mg/dL Total Bilirubin (0.2-1.3) mg/dL AST (14-36) U/L ALT (4-34) U/L Alkaline Phosphatase (38-126) U/L Troponin I (0.000-0.034) ng/mL NT-Pro-B Natriuret Pep pg/mL Total Protein (6.3-8.2) g/dL Albumin (3.5-5.0) g/dL Urine Color Yellow Urine Appearance Clear (Clear) Urine pH 6.5 (5.0-8.0) Ur Specific [place] 1.011 (1.001-1.035) Urine Protein Negative (Negative) Urine Glucose (UA) Negative (Negative) Urine Ketones Negative (Negative) Urine Blood Small H (Negative) Urine Nitrite Negative (Negative) Urine Bilirubin Negative (Negative) Urine Urobilinogen <2.0 (<2.0) mg/dL Ur Leukocyte Esterase Trace H (Negative) Urine RBC 2 (0-5) /hpf Urine WBC 4 (0-5) /hpf Ur Squamous Epith Cells 1 (0-4) /hpf Urine Bacteria Rare H (None) /hpf Influenza Type A (PCR) (Not Detectd) Influenza Type B (PCR) (Not Detectd) RSV (PCR) (Not Detectd) SARS-CoV-2 (PCR) (Not Detectd) Disposition <Vilma Kemp - Last Filed: 04/12/24 22:53> <Vivienne Caba - Last Filed: 04/15/24 02:24> Clinical Impression: Hyponatremia, Weakness, Shortness of breath Disposition: ADMITTED IP TO THIS HOSP Condition: Stable
[2024-04-12] MEDS: ONDANSETRON 4 MG/2 ML VIAL IVP STA (20:31)
[2024-04-12] MEDS: SODIUM CHLORIDE 0.9% 1,000 ML IV STA (20:31)
[2024-04-12 20:56] LABS: Basophils % (A) 0 %; Eosinophils # (A) 0.2 k/uL (0-0.7); Eosinophils % (A) 2 %; HCT 42.3 % (34.0-46.0); HGB 14.1 gm/dL (11.4-16.0); Lymphocytes # (A) 0.5 k/uL (1.0-4.8); Lymphocytes % (A) 5 %; MCH 29.1 pg (25.0-35.0); MCHC 33.4 g/dL (31.0-37.0); MCV 87.2 fL (80.0-100.0); Mean Platelet Volume 7.7; Monocytes # (A) 0.4 k/uL (0-1.0); Monocytes % (A) 5 %; Neutrophils % (A) 87 %; Platelet Count 242 k/uL (150-450); RBC 4.85 m/uL (3.80-5.40); RDW 13.5 % (11.5-15.5); WBC 9.2 k/uL (3.8-10.6)
[2024-04-12 21:10] LABS: ALT 24 U/L (4-34); African American GFR (CKD) >90 (>60 ml/min/1.73 sqM); Anion Gap 8 mmol/L; Blood Urea Nitrogen 13 mg/dL (7-17); Calcium 9.2 mg/dL (8.4-10.2); Carbon Dioxide 25 mmol/L (22-30); Chloride 90 mmol/L (98-107); Glucose 93 mg/dL (74-99); Non-African American GFR(CKD) 85 (>60 ml/min/1.73 sqM); Sodium 123 mmol/L (137-145); Total Bilirubin 1.2 mg/dL (0.2-1.3); Total Protein 6.6 g/dL (6.3-8.2)
[2024-04-12 21:19] LABS: Potassium 4.4 mmol/L (3.5-5.1)
[2024-04-12 21:20] LABS: AST 38 U/L (14-36); Alkaline Phosphatase 65 U/L (38-126); Magnesium 1.7 mg/dL (1.6-2.3)
--- NOTE | 2024-04-12 21:23 | XR ---
EXAMINATION TYPE: XR chest 2V DATE OF EXAM: 04/12/2024 COMPARISON: 03/03/2024 INDICATION: Cough congestion nausea TECHNIQUE: Frontal and lateral views of the chest are obtained. FINDINGS: The heart size is enlarged. The pulmonary vasculature is prominent. Diffuse increased lung markings are present. Focal consolidation is not identified.. IMPRESSION: 1. Clinical correlation recommended for congestive heart failure. [facility], Workstation: [facility], 04/12/2024 9:21 PM
[2024-04-12] MEDS: IPRATROPIUM-ALBUTEROL 3 ML NEB INHALATION STA (21:47)
[2024-04-12] MEDS ORDERED: ACETAMINOPHEN TAB 325 MG TAB PO PRN (22:04)
[2024-04-12] MEDS ORDERED: MORPHINE SULFATE 4 MG/ML SYRINGE IV PRN (22:04)
[2024-04-12] MEDS ORDERED: NALOXONE 0.4 MG/ML 1 ML VIAL IV PRN (22:04)
[2024-04-12] MEDS: FUROSEMIDE 10 MG/ML 4 ML VIAL IV STA (22:25)
[2024-04-12 23:00] LABS: Appearance,Urine Clear (Clear); Bacteria,Urine Rare /hpf; Bilirubin,Urine Negative (Negative); Blood,Urine Small (Negative); Color,Urine Yellow; Glucose,Urine (UA) Negative (Negative); Ketones,Urine Negative (Negative); Leukocyte Esterase,Urine Trace (Negative); Nitrite,Urine Negative (Negative); PH, Urine 6.5 (5.0-8.0); Protein,Urine Negative (Negative); RBC,Urine 2 /hpf (0-5); Specific Gravity,Urine 1.011 (1.001-1.035); Squamous Epithelial Cell,Urine 1 /hpf (0-4); Urobilinogen,Urine <2.0 mg/dL (<2.0); WBC,Urine 4 /hpf (0-5)
[2024-04-13] MEDS: HYDROcodone/APAP 5-325MG 1 EACH TAB PO PRN (03:35)
[2024-04-13] MEDS: ONDANSETRON 4 MG/2 ML VIAL IVP PRN (03:55)
[2024-04-13] MEDS: IPRATROPIUM-ALBUTEROL 3 ML NEB INHALATION PRN (04:35)
[2024-04-13] MEDS: PANTOPRAZOLE 40 MG/10 ML VIAL IV SCH (08:26)
--- NOTE | 2024-04-13 12:03 | P.NPCON ---
History of Present Illness - Reason for Consult hyponatremia - History of Present Illness Patient is a 79-year-old female who was admitted to the hospital with complaints of increased weakness. Patient also had productive cough. She denied any significant vomiting or diarrhea but has had nausea on and off. Patient states that she was recently started on Lasix for lower extremity swelling which has improved significantly now.. Serum sodium was 123. Patient received fluid bolus in the ER. Repeat labs are not available. Patient also received a dose of IV Lasix. Chest x-ray shows increased pulmonary vascular congestion. Sodium was noted to be low at 125-119 on admission in February of this year and improved to 128 on 03/04/2024. At that time thiazide diuretics were discontinued and patient was maintained on fluid restriction. She also received a dose of Samsca. Review of Systems as per HPI Past Medical History Past Medical History: Coronary Artery Disease (CAD), Cancer, CVA/TIA, Hyperlipidemia, Hypertension, Osteoarthritis (OA) Additional Past Medical History / Comment(s): skin cancer with removals, arthritis multiple joints, back and cervical pain, ?TIA A teens-shows up on scan?, PULMONARY FIBROSIS, HAD A KIDNEY FAILURE IN THE ICU. SEPSIS FOLLOWING OPEN HEART SURGERY- WAS IN HOSPITAL FOR 5 MONTHS History of Any Multi-Drug Resistant Organisms: None Reported Past Surgical History: Cardiac Valve Replacement, Cholecystectomy, Coronary By pass/CABG, Heart Catheterization, Tonsillectomy, Tubal Ligation Additional Past Surgical History / Comment(s): 2 CABG, 2 cardiac caths without intervention, bilateral cataract removal with lens implants, skin cancer removals, cyst removed from neck, colonoscopy, cervical fusion Past Anesthesia/Blood Transfusion Reactions: No Reported Reaction Additional Past Anesthesia/Blood Transfusion Reaction / Comment(s): Pt has never received blood. Past Psychological History: No Psychological Hx Reported Additional Psychological History / Comment(s): Pt resides with her spouse. She drives. Smoking Status: Former smoker Past Alcohol Use History: Rare Additional Past Alcohol Use History / Comment(s): Pt started smoking in 1961 and quit in 1981. She smoked one and half packs per day. Past Drug Use History: None Reported - Past Family History Brother(s) Family Medical History: Coronary Artery Disease (CAD) Additional Family Medical History / Comment(s): "bad heart" aneurysm Sister(s) Family Medical History: Cancer Additional Family Medical History / Comment(s): breast cancer Mother Family Medical History: Cancer, Coronary Artery Disease (CAD) Additional Family Medical History / Comment(s): Lymphoma, had a pacemaker. Mother at the age of 92yrs. Father Family Medical History: Coronary Artery Disease (CAD), Myocardial Infarction ([place]) Additional Family Medical History / Comment(s): Father of a [place] at the age of 63 yrs, diagnosed with CAD in his early 50s. Medications and Allergies Home Medications Medication Instructions Recorded Confirmed Type Clopidogrel [Plavix] 75 mg PO DAILY #30 tab 08/19/20 04/13/24 Rx Ibuprofen [Motrin] 800 mg PO Q8H PRN 10/26/21 04/13/24 History Ipratropium-Albuterol Nebulize 3 ml INHALATION RT-TID PRN 10/26/21 04/13/24 History [Duoneb 0.5 mg-3 mg/3 ml Soln] Baclofen 10 mg PO DAILY 04/03/23 04/13/24 History Metoprolol Succinate [Metoprolol 25 mg PO DAILY 04/03/23 04/13/24 History Succinate ER] Fluticasone/Umeclidin/Vilanter 1 puff INHALATION RT-DAILY 03/03/24 04/13/24 History [Trelegy Ellipta 100-62.5-25] Furosemide [Lasix] 20 mg PO DAILY 04/13/24 04/13/24 History Nitrofurantoin Monohyd/M-Cryst 100 mg PO BID 04/13/24 04/13/24 History [Macrobid] Rosuvastatin Calcium [Crestor] 40 mg PO DAILY 04/13/24 04/13/24 History busPIRone HCL 5 mg PO BID 04/13/24 04/13/24 History predniSONE See Taper PO DIRECTED 04/13/24 04/13/24 History Allergies Allergy/AdvReac Type Severity Reaction Status Date / Time adhesive Allergy blisters Verified 04/12/24 20:04 latex Allergy Rash/Hives Verified 04/12/24 20:04 Physical Exam Vitals: Vital Signs Temp Pulse Pulse Resp BP BP Pulse Ox 04/13/24 08:00 98.1 F 68 16 102/57 99 04/13/24 04:36 104 H 04/13/24 03:38 98.2 F 91 18 99/60 93 L 04/13/24 01:10 125 H 18 04/12/24 23:44 125 H 18 04/12/24 23:13 98.6 F 125 H 18 111/65 94 L 04/12/24 22:19 110 H 18 101/50 97 04/12/24 21:53 107 H 04/12/24 21:47 105 H 04/12/24 20:51 97 04/12/24 20:46 91 L 04/12/24 20:30 108 H 18 147/92 96 04/12/24 20:01 97.9 F 85 18 149/73 94 L Intake and Output 04/12/24 04/13/24 04/13/24 22:59 06:59 14:59 Other: Voiding Method Toilet # Voids 0 Weight 72.575 kg 72.575 kg patient is awake, comfortable, no acute distress. 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 Hyponatremia, hypervolemic with history of hyponatremia during recent hospitalization in February. Continue off of IV fluids and maintain fluid restriction. Urine osmolality was 635 on 03/04/2024 and urine sodium was 84 at that time.TSH was normal on 03/04/2024 2. Volume overload 3. Coronary artery disease with history of coronary artery bypass surgery Plan: repeat BMP today. Repeat urine osmolality and urine sodium Maintain fluid restriction Repeat IV Lasix May need to repeat Samsca. Thank you for the consultation. We will continue to follow the patient with you during her hospitalization.
[2024-04-13] MEDS ORDERED: IPRATROPIUM-ALBUTEROL 3 ML NEB INHALATION PRN (12:13)
[2024-04-13] MEDS: BACLOFEN 10 MG TAB PO SCH (12:59)
[2024-04-13] MEDS: CLOPIDOGREL 75 MG TAB PO SCH (12:59)
[2024-04-13] MEDS: ATORVASTATIN 80 MG TAB PO SCH (12:59)
[2024-04-13] MEDS: busPIRone HCl 5 MG TAB PO SCH (12:59)
[2024-04-13 13:23] LABS: African American GFR (CKD) 77 (>60 ml/min/1.73 sqM); Anion Gap 8 mmol/L; Blood Urea Nitrogen 12 mg/dL (7-17); Calcium 8.9 mg/dL (8.4-10.2); Carbon Dioxide 23 mmol/L (22-30); Chloride 91 mmol/L (98-107); Glucose 118 mg/dL (74-99); Non-African American GFR(CKD) 67 (>60 ml/min/1.73 sqM); Potassium 3.9 mmol/L (3.5-5.1); Sodium 122 mmol/L (137-145)
--- NOTE | 2024-04-13 14:24 | P.HPIM ---
History of Present Illness History of present illness; 79-year-old female with a past medical history of CAD, CVA/TIA, hyperlipidemia, hypertension, OA presents with complaints of coughing, shortness of breath, and weakness. Patient reports over the last cou ple of days she has felt increasingly weak, short of breath, and has had a productive cough. Patient also reports she has had significant nausea and felt like she is going to vomit. Patient denies any sick contacts. Patient reports she also has been having lightheadedness, and it became so severe that she decided to come to the ED. Patient reports she has not been eating much food at all for the last 3 to 4 days, only sustenance has been tea and some toast. Patient also reports she was prescribed nitrofurantoin for a "kidney infection"' for which she has taken 2 doses so far. Initial lab work done in the ER showed WBC 9.2, hemoglobin 14.1, MCV 87.2, sodium 123, potassium 4.4, chloride 90, creatinine 0.67, AST 38, troponin less than 0.012, and BNP 539. Patient also had UA that was within normal limits. EKG done in the ER showed heart rate of 83, SNR with occasional supraventricular premature complexes, possible left atrial enlargement, incomplete right bundle branch block. Chest x-ray done in the ER showed an enlarged heart, prominent pulmonary vasculature, and diffuse increased lung markings. There was no focal consolidation identified. Patient admitted to internal medicine service REVIEW OF SYSTEMS: As stated above in HPI. The rest of the 14-point review of systems is negative. PHYSICAL EXAMINATION: GENERAL: The patient is alert and oriented x3, not in any acute distress. Well developed, well nourished. HEENT: Pupils are round and equally reacting to light. EOMI. No scleral icterus. No conjunctival pallor. Normocephalic, atraumatic. No pharyngeal erythema. No thyromegaly. CARDIOVASCULAR: S1 and S2 present. Systolic murmur noted at the aortic and pulmonic post, no rubs nor gallops. PULMONARY: Chest is clear to auscultation, no wheezing or crackles. ABDOMEN: Soft, nontender, nondistended, normoactive bowel sounds. No palpable organomegaly. MUSCULOSKELETAL: No joint swelling or deformity. EXTREMITIES: No cyanosis, clubbing, or pedal edema. NEUROLOGICAL: Gross neurological examination did not reveal any focal deficits. SKIN: No rashes. Assessment:79-year-old female with a past medical history of CAD, CVA/TIA, hyperlipidemia, hypertension, OA presents with complaints of coughing, shortness of breath, and weakness. Plan: #Hyponatremia: Fluid restrict Ordered urine lites, sodium, creatinine, osmolality, and serum osmolality Continue to monitor Encourage to increase diet #Dysuria: Patient was prescribed nitrofurantoin for alleged kidney infection, rule out UTI/pyelonephritis Follow-up results of UA with reflex #CAD: Continue home medications (Plavix 75 mg p.o. daily) #Hypertension: Currently holding home medication as patient is slightly hypotensive at the moment Continue home medication if blood pressure begins to rise #Hyperlipidemia: Continue home medication Dispo: Pending clinical course. Trisha Pace MD PGY1, FM Continue to monitor vital signs, monitor CBC, monitor CMP, continue telemetry monitoring Labs and medication were reviewed. Continue with symptomatic treatment. Resume home medication. Monitor labs and vitals. DVT and GI prophylaxis. Further recommendations as per clinical course of the patient Dictation was produced using [employer] dictation software. please excuse any grammatical, word or spelling errors. [facility] confidentiality statement: "The information contained in this communication, including attachments, is confidential, may be privileged, and is intended only for the use of the named recipient(s). Unauthorized use, disclosure, forwarding or copying is strictly prohibited and may be unlawful. If you have received this communication in error, please notify me IMMEDIATELY at the phone number or pager listed above." Attestation I have seen and examined this patient with my resident , discussed the same with the resident/MATT, and agree with the dictator's assessment and plan as written GENERAL: The patient is alert and oriented x3, not in any acute distress. Well developed, well nourished. HEENT: Pupils are round and equally reacting to light. EOMI. No scleral icterus. No conjunctival pallor. Normocephalic, atraumatic. No pharyngeal erythema. No thyromegaly. CARDIOVASCULAR: S1 and S2 present. No murmurs, rubs, or gallops. PULMONARY: Chest is clear to auscultation, no wheezing or crackles. ABDOMEN: Soft, nontender, nondistended, normoactive bowel sounds. No palpable organomegaly. MUSCULOSKELETAL: No joint swelling or deformity. EXTREMITIES: No cyanosis, clubbing, or pedal edema. NEUROLOGICAL: Gross neurological examination did not reveal any focal deficits. SKIN: No rashes. Dr. Giacomo andrew Past Medical History Past Medical History: Coronary Artery Disease (CAD), Cancer, CVA/TIA, Hyperlipidemia, Hypertension, Osteoarthritis (OA) Additional Past Medical History / Comment(s): skin cancer with removals, arthritis multiple joints, back and cervical pain, ?TIA A teens-shows up on scan?, PULMONARY FIBROSIS, HAD A KIDNEY FAILURE IN THE ICU. SEPSIS FOLLOWING OPEN HEART SURGERY- WAS IN HOSPITAL FOR 5 MONTHS History of Any Multi-Drug Resistant Organisms: None Reported Past Surgical History: Cardiac Valve Replacement, Cholecystectomy, Coronary Bypass/CABG, Heart Catheterization, Tonsillectomy, Tubal Ligation Additional Past Surgical History / Comment(s): 2 CABG, 2 cardiac caths without intervention, bilateral cataract removal with lens implants, skin cancer removals, cyst removed from neck, colonoscopy, cervical fusion Past Anesthesia/Blood Transfusion Reactions: No Reported Reaction Additional Past Anesthesia/Blood Transfusion Reaction / Comment(s): Pt has never received blood. Past Psychological History: No Psychological Hx Reported Additional Psychological History / Comment(s): Pt resides with her spouse. She drives. Smoking Status: Former smoker Past Alcohol Use History: Rare Additional Past Alcohol Use History / Comment(s): Pt started smoking in 1961 and quit in 1981. She smoked one and half packs per day. Past Drug Use History: None Reported - Past Family History Brother(s) Family Medical History: Coronary Artery Disease (CAD) Additional Family Medical History / Comment(s): "bad heart" aneurysm Sister(s) Family Medical History: Cancer Additional Family Medical History / Comment(s): breast cancer Mother Family Medical History: Cancer, Coronary Artery Disease (CAD) Additional Family Medical History / Comment(s): Lymphoma, had a pacemaker. Mother at the age of 92yrs. Father Family Medical History: Coronary Artery Disease (CAD), Myocardial Infarction ([place]) Additional Family Medical History / Comment(s): Father of a [place] at the age of 63 yrs, diagnosed with CAD in his early 50s. Medications and Allergies Home Medications Medication Instructions Recorded Confirmed Type Clopidogrel [Plavix] 75 mg PO DAILY #30 tab 08/19/20 04/13/24 Rx Ibuprofen [Motrin] 800 mg PO Q8H PRN 10/26/21 04/13/24 History Ipratropium-Albuterol Nebulize 3 ml INHALATION RT-TID PRN 10/26/21 04/13/24 History [Duoneb 0.5 mg-3 mg/3 ml Soln] Baclofen 10 mg PO DAILY 04/03/23 04/13/24 History Metoprolol Succinate [Metoprolol 25 mg PO DAILY 04/03/23 04/13/24 History Succinate ER] Fluticasone/Umeclidin/Vilanter 1 puff INHALATION RT-DAILY 03/03/24 04/13/24 History [Trelegy Ellipta 100-62.5-25] Furosemide [Lasix] 20 mg PO DAILY 04/13/24 04/13/24 History Nitrofurantoin Monohyd/M-Cryst 100 mg PO BID 04/13/24 04/13/24 History [Macrobid] Rosuvastatin Calcium [Crestor] 40 mg PO DAILY 04/13/24 04/13/24 History busPIRone HCL 5 mg PO BID 04/13/24 04/13/24 History predniSONE See Taper PO DIRECTED 04/13/24 04/13/24 History Allergies Allergy/AdvReac Type Severity Reaction Status Date / Time adhesive Allergy blisters Verified 04/12/24 20:04 latex Allergy Rash/Hives Verified 04/12/24 20:04 Physical Exam Vitals: Vital Signs Temp Pulse Pulse Resp BP BP Pulse Ox 04/13/24 04:36 104 H 04/13/24 03:38 98.2 F 91 18 99/60 93 L 04/13/24 01:10 125 H 18 04/12/24 23:44 125 H 18 04/12/24 23:13 98.6 F 125 H 18 111/65 94 L 04/12/24 22:19 110 H 18 101/50 97 04/12/24 21:53 107 H 04/12/24 21:47 105 H 04/12/24 20:51 97 04/12/24 20:46 91 L 04/12/24 20:30 108 H 18 147/92 96 04/12/24 20:01 97.9 F 85 18 149/73 94 L Intake and Output 04/12/24 04/13/24 04/13/24 22:59 06:59 14:59 Other: Voiding Method Toilet # Voids 0 Weight 72.575 kg 72.575 kg Results CBC & Chem 7: 04/12/24 20:39 04/14/24 07:34 Labs: Abnormal Lab Results - Last 24 Hours (Table) 04/12/24 04/12/24 04/12/24 Range/Units 20:39 20:39 21:00 Neutrophils # 8.0 H (1.3-7.7) k/uL Lymphocytes # 0.5 L (1.0-4.8) k/uL Sodium 123 L (137-145) mmol/L Chloride 90 L (98-107) mmol/L AST 38 H (14-36) U/L Urine Blood Small H (Negative) Ur Leukocyte Esterase Trace H (Negative) Urine Bacteria Rare H (None) /hpf Thrombosis Risk Factor Assmnt - Choose All That Apply Any of the Below Risk Factors Present?: Yes Each Factor Represents 1 point: Obesity (BMI >25) Other Risk Factors: Yes Each Risk Factor Represents 3 Points: Age 75 years or older Other congenital or acquired thrombophilia - If yes, enter type in comment: No Thrombosis Risk Factor Assessment Total Risk Factor Score: 4 Thrombosis Risk Factor Assessment Level: Moderate Risk
[2024-04-13] MEDS: IPRATROPIUM 0.5 MG/2.5 ML NEBU INHALATION SCH (16:04)
[2024-04-13] MEDS: SYMBICORT 80-4.5 MCG INHALER INHALATION SCH (21:21)
[2024-04-13 22:03] LABS: Amorphous Sediment,Urine Occasional /hpf; Appearance,Urine Clear (Clear); Bilirubin,Urine Negative (Negative); Blood,Urine Small (Negative); Color,Urine Yellow; Glucose,Urine (UA) Negative (Negative); Hyaline Casts,Urine 22 /lpf (0-2); Ketones,Urine Negative (Negative); Leukocyte Esterase,Urine Negative (Negative); Mucus,Urine Rare /hpf; Nitrite,Urine Negative (Negative); Protein,Urine Trace (Negative); RBC,Urine 3 /hpf (0-5); Specific Gravity,Urine 1.013 (1.001-1.035); Urobilinogen,Urine <2.0 mg/dL (<2.0); WBC,Urine 8 /hpf (0-5)
[2024-04-14] MEDS ORDERED: NON FORMULARY DRUG (Fluticasone/Umeclidin/Vilanter [Trelegy Ellipta 100-62.5-25] 1 EACH Bl INHALATION SCH (08:00)
[2024-04-14] MEDS: FUROSEMIDE 10 MG/ML 4 ML VIAL IV SCH (09:17)
--- NOTE | 2024-04-14 11:26 | P.PN ---
Subjective patient is seen for follow-up for hypervolemic hyponatremia. Serum sodium was 123 today. Started on IV Lasix. Repeat sodium ordered for this afternoon. No significant complaints today. Objective - Vital Signs Vital signs: Vital Signs Temp 97.7 F 04/14/24 08:00 Pulse 69 04/14/24 09:15 Resp 16 04/14/24 08:00 BP 114/61 04/14/24 08:00 Pulse Ox 95 04/14/24 09:04 FiO2 Intake & Output 04/13/24 04/14/24 04/14/24 18:59 06:59 18:59 Intake Total 1620 Balance 1620 Intake: Oral 1080 Other 540 Other: Voiding Method Toilet Toilet Toilet # Voids 2 540 - Exam patient is awake, comfortable, no acute distress. 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 - Labs CBC & Chem 7: 04/12/24 20:39 04/14/24 07:34 Labs: Abnormal Lab Results - Last 24 Hours (Table) 04/13/24 04/13/24 04/13/24 Range/Units 12:44 21:05 21:05 Sodium 122 L (137-145) mmol/L Chloride 91 L (98-107) mmol/L Glucose 118 H (74-99) mg/dL Osmolality 258 L (275-295) mOsm/kg Urine Protein Trace H (Negative) Urine Blood Small H (Negative) Urine WBC 8 H (0-5) /hpf Amorphous Sediment Occasional H (None) /hpf Hyaline Casts 22 H (0-2) /lpf Urine Mucus Rare H (None) /hpf Urine Osmolality 325 L (400-1100) mOsm/kg Ur Random Sodium (40-220) mmol/L 04/13/24 04/14/24 Range/Units 21:05 07:34 Sodium 123 L (137-145) mmol/L Chloride (98-107) mmol/L Glucose (74-99) mg/dL Osmolality (275-295) mOsm/kg Urine Protein (Negative) Urine Blood (Negative) Urine WBC (0-5) /hpf Amorphous Sediment (None) /hpf Hyaline Casts (0-2) /lpf Urine Mucus (None) /hpf Urine Osmolality (400-1100) mOsm/kg Ur Random Sodium <20 L (40-220) mmol/L Assessment and Plan Assessment: 1. Hyponatremia, hypervolemic with history of hyponatremia during recent hospitalization in February. Continue off of IV fluids and maintain fluid restriction. Urine osmolality was 635 on 03/04/2024 and urine sodium was 84 at that time.TSH was normal on 03/04/2024. Started on IV Lasix 2. Volume overload 3. Coronary artery disease with history of coronary artery bypass surgery Plan: continue with IV Lasix. Repeat sodium this afternoon. Add Samsca if sodium is not further improved. Continue with fluid restriction.
--- NOTE | 2024-04-14 14:30 | P.PN ---
Subjective Progress Note Date: 04/14/24 79-year-old female with a past medical history of CAD, CVA/TIA, hyperlipidemia, hypertension, OA presents with complaints of coughing, shortness of breath, and weakness. Patient reports over the last couple of days she has felt increasingly weak, short of breath, and has had a productive cough. Patient a lso reports she has had significant nausea and felt like she is going to vomit. Patient denies any sick contacts. Patient reports she also has been having lightheadedness, and it became so severe that she decided to come to the ED. Patient reports she has not been eating much food at all for the last 3 to 4 days, only sustenance has been tea and some toast. Patient also reports she was prescribed nitrofurantoin for a "kidney infection"' for which she has taken 2 doses so far. Initial lab work done in the ER showed WBC 9.2, hemoglobin 14.1, MCV 87.2, sodium 123, potassium 4.4, chloride 90, creatinine 0.67, AST 38, troponin less than 0.012, and BNP 539. Patient also had UA that was within normal limits. EKG done in the ER showed heart rate of 83, SNR with occasional supraventricular premature complexes, possible left atrial enlargement, incomplete right bundle branch block. Chest x-ray done in the ER showed an enlarged heart, prominent pulmonary vasculature, and diffuse increased lung markings. There was no focal consolidation identified. Patient admitted to internal medicine service 04/14. Patient seen and examined. Complaining lethargy and weakness. Complaining of shortness of breath on exertion REVIEW OF SYSTEMS: CONSTITUTIONAL: No fever, no malaise,. CARDIOVASCULAR: No chest pain, no palpitations, no syncope. PULMONARY: No palpitation, no cough, GASTROINTESTINAL: No diarrhea, no nausea, no vomiting, no abdominal pain. NEUROLOGICAL: No headaches, no weakness, PHYSICAL EXAMINATION: GENERAL: The patient is alert and oriented x3, not in any acute distress. Well developed, well nourished. HEENT: Pupils are round and equally reacting to light. EOMI. No scleral icterus. No conjunctival pallor. Normocephalic, atraumatic. No pharyngeal erythema. No thyromegaly. CARDIOVASCULAR: S1 and S2 present. No murmurs, rubs, or gallops. PULMONARY: Chest is clear to auscultation, no wheezing or crackles. ABDOMEN: Soft, nontender, nondistended, normoactive bowel sounds. No palpable organomegaly. MUSCULOSKELETAL: No joint swelling or deformity. EXTREMITIES: No cyanosis, clubbing, or pedal edema. NEUROLOGICAL: Gross neurological examination did not reveal any focal deficits. SKIN: No rashes. Assessment and plan #Hyponatremia: Fluid restrict Continue to monitor Nephrology following #Dysuria: UA not suspicious for infection #CAD: Continue home medications (Plavix 75 mg p.o. daily) #Hypertension: Monitor vital signs #Hyperlipidemia: Continue home medication Labs and medication were reviewed.. Continue same treatment. Continue with s ymptomatic treatment. Resume home medication. Monitor labs and vitals. DVT and GI prophylaxis. Further recommendations as per clinical course of the patient Dictation was produced using [employer] dictation software. please excuse any grammatical, word or spelling errors. Objective - Vital Signs Vital signs: Vital Signs Temp 97.7 F 04/14/24 08:00 Pulse 69 04/14/24 09:15 Resp 16 04/14/24 08:00 BP 114/61 04/14/24 08:00 Pulse Ox 95 04/14/24 09:04 FiO2 Intake & Output 04/13/24 04/14/24 04/14/24 18:59 06:59 18:59 Intake Total 1620 Balance 1620 Intake: Oral 1080 Other 540 Other: Voiding Method Toilet Toilet # Voids 2 540 - Labs CBC & Chem 7: 04/12/24 20:39 04/14/24 07:34 Labs: Abnormal Lab Results - Last 24 Hours (Table) 04/13/24 04/13/24 04/13/24 Range/Units 12:44 21:05 21:05 Sodium 122 L (137-145) mmol/L Chloride 91 L (98-107) mmol/L Glucose 118 H (74-99) mg/dL Osmolality 258 L (275-295) mOsm/kg Urine Protein Trace H (Negative) Urine Blood Small H (Negative) Urine WBC 8 H (0-5) /hpf Amorphous Sediment Occasional H (None) /hpf Hyaline Casts 22 H (0-2) /lpf Urine Mucus Rare H (None) /hpf Ur Random Sodium <20 L (40-220) mmol/L 10/06/24 Range/Units 07:34 Sodium 123 L (137-145) mmol/L Chloride (98-107) mmol/L Glucose (74-99) mg/dL Osmolality (275-295) mOsm/kg Urine Protein (Negative) Urine Blood (Negative) Urine WBC (0-5) /hpf Amorphous Sediment (None) /hpf Hyaline Casts (0-2) /lpf Urine Mucus (None) /hpf Ur Random Sodium (40-220) mmol/L
[2024-04-15 08:07] LABS: Basophils # (A) 0.1 k/uL (0-0.2); Basophils % (A) 1 %; Eosinophils # (A) 0.6 k/uL (0-0.7); Eosinophils % (A) 9 %; HCT 39.9 % (34.0-46.0); HGB 12.9 gm/dL (11.4-16.0); Lymphocytes % (A) 16 %; MCHC 32.3 g/dL (31.0-37.0); MCV 89.7 fL (80.0-100.0); Mean Platelet Volume 7.7; Monocytes # (A) 0.7 k/uL (0-1.0); Monocytes % (A) 10 %; Neutrophils % (A) 61 %; Platelet Count 281 k/uL (150-450); RBC 4.45 m/uL (3.80-5.40); RDW 13.6 % (11.5-15.5); WBC 6.6 k/uL (3.8-10.6)
[2024-04-15 08:21] LABS: ALT 20 U/L (4-34); AST 25 U/L (14-36); African American GFR (CKD) 69 (>60 ml/min/1.73 sqM); Albumin 3.4 g/dL (3.5-5.0); Alkaline Phosphatase 74 U/L (38-126); Anion Gap 6 mmol/L; Blood Urea Nitrogen 19 mg/dL (7-17); Calcium 8.9 mg/dL (8.4-10.2); Carbon Dioxide 30 mmol/L (22-30); Chloride 92 mmol/L (98-107); Glucose 85 mg/dL (74-99); Non-African American GFR(CKD) 60 (>60 ml/min/1.73 sqM); Potassium 3.9 mmol/L (3.5-5.1); Sodium 128 mmol/L (137-145); Total Bilirubin 0.5 mg/dL (0.2-1.3); Total Protein 5.7 g/dL (6.3-8.2)
--- NOTE | 2024-04-15 09:41 | P.PN ---
Subjective 79-year-old female with a past medical history of CAD, CVA/TIA, hyperlipidemia, hypertension, OA presents with complaints of coughing, shortness of breath, and weakness. Patient reports over the last couple of days she has felt increasingly weak, short of breath, and has had a productive cough. Patient also reports she has had significant nausea and felt like she is going to vomit. Patient denies any sick contacts. Patient reports she also has been having lightheadedness, and it became so severe that she decided to come to the ED. Patient reports she has not been eating much food at all for the last 3 to 4 days, only sustenance has been tea and some toast. Patient also reports she was prescribed nitrofurantoin for a "kidney infection"' for which she has taken 2 doses so far. Initial lab work done in the ER showed WBC 9.2, hemoglobin 14.1, MCV 87.2, sodium 123, potassium 4.4, chloride 90, creatinine 0.67, AST 38, troponin less than 0.012, and BNP 539. Patient also had UA that was within normal limits. EKG done in the ER showed heart rate of 83, SNR with occasional supraventricular premature complexes, possible left atrial enlargement, incomplete right bundle branch block. Chest x-ray done in the ER showed an enlarged heart, prominent pulmonary vasculature, and diffuse increased lung markings. There was no focal c onsolidation identified. Patient admitted to internal medicine service 04/14. Patient seen and examined. Complaining lethargy and weakness. Complaining of shortness of breath on exertion 04/15. Patient seen at bedside no significant overnight events. Sodium increased from 126 to 128. Patient reports her symptoms of weakness and shortness of breath have resolved, but she still has a lingering dry cough. REVIEW OF SYSTEMS: CONSTITUTIONAL: No fever, no malaise,. CARDIOVASCULAR: No chest pain, no palpitations, no syncope. PULMONARY: No palpitation, no cough, GASTROINTESTINAL: No diarrhea, no nausea, no vomiting, no abdominal pain. NEUROLOGICAL: No headaches, no weakness, PHYSICAL EXAMINATION: GENERAL: The patient is alert and oriented x3, not in any acute distress. Well developed, well nourished. HEENT: Pupils are round and equally reacting to light. EOMI. No scleral icterus. No conjunctival pallor. Normocephalic, atraumatic. No pharyngeal erythema. No thyromegaly. CARDIOVASCULAR: S1 and S2 present. Systolic murmur auscultated at the aortic and pulmonic post. PULMONARY: Chest is clear to auscultation, no wheezing or crackles. ABDOMEN: Soft, nontender, nondistended, normoactive bowel sounds. No palpable organomegaly. MUSCULOSKELETAL: No joint swelling or deformity. EXTREMITIES: No cyanosis, clubbing, or pedal edema. NEUROLOGICAL: Gross neurological examination did not reveal any focal deficits. SKIN: No rashes. New Labs: Sodium 128, chloride 92, creatinine 0.92 New imaging: No new imaging Assessment and plan #Hyponatremia: Fluid restrict 1500 cc Nephrology following, have started IV Lasix 40 mg twice daily, will hold off on using Samsca as sodium increased to 128 today Continue to monitor #Dysuria: UA not suspicious for infection #Dry cough: Added guaifenesin 200 mg p.o. 3 times daily as needed Continue to monitor Chest x-ray on admission showed no focal consolidation #CAD: Continue home medications (Plavix 75 mg p.o. daily) #Hypertension: Monitor vital signs Cardiology following, recommend increasing metoprolol succinate to 50 mg daily #Hyperlipidemia: Continue home medication F: None E: None N: Heart healthy diet A: Normally ambulates at home without assistance Anticipated place of discharge: To home Anticipated time of discharge: Likely tomorrow (04/16) if sodium continues to increase and patient remains asymptomatic. Labs and medication were reviewed.. Continue same treatment. Continue with symptomatic treatment. Resume home medication. Monitor labs and vitals. DVT and GI prophylaxis. Further recommendations as per clinical course of the patient Dictation was produced using [employer] dictation software. please excuse any grammatical, word or spelling errors. Attestation I have seen and examined this patient with my resident , discussed the same with the resident/MATT, and agree with the dictator's assessment and plan as written Dr. Giacomo andrew Objective - Vital Signs Vital signs: Vital Signs Temp 97.7 F 04/15/24 03:23 Pulse 94 04/15/24 03:23 Resp 16 04/15/24 03:23 BP 104/59 04/15/24 03:23 Pulse Ox 94 L 04/15/24 03:23 FiO2 Intake & Output 04/14/24 04/15/24 04/15/24 18:59 06:59 18:59 Output Total 1200 Balance -1200 Weight 74.7 kg Output: Urine 1200 Other: Voiding Method Toilet Toilet - Labs CBC & Chem 7: 04/15/24 07:03 04/16/24 06:56 Labs: Abnormal Lab Results - Last 24 Hours (Table) 04/13/24 04/13/24 04/14/24 Range/Units 21:05 21:05 14:24 Sodium 126 L (137-145) mmol/L Urine Osmolality 325 L (400-1100) mOsm/kg Ur Random Sodium <20 L (40-220) mmol/L
--- NOTE | 2024-04-15 11:43 | P.CRDCN ---
History of Present Illness Consult date: 04/15/24 History of present illness: HISTORY OF PRESENTING ILLNESS Patient is a 79-year-old female with past medical history of paroxysmal atrial fibrillation, pulmonary fibrosis, coronary artery disease status post CABG because a left main disease, moderate aortic stenosis follows up with Dr. Sloan. She was recently in the hospital in February 2024 where she was admitted and treated for acute hypoxic respiratory failure. Not much changes to her medications were made at that time This time she presented because of generalized weakness. She saw her primary care physician 3 days ago and she was started on diuretics because of her lower extremity edema. On admission to ER she was noticed to be hypervolemic hyponatremic for which nephrology team started on diuretics. Cardiology is consulted for mild abnormalities noticed on telemetry. On review of telemetry her lowest heart rate is around mid 60s with intermittent PVCs with compensatory pauses. Her ECG shows sinus rhythm with PVCs. Chest x-ray shows cardiomegaly with mild increased interstitial marking and cu rly B-lines/show mild pulm congestion. REVIEW OF SYSTEMS 14 point review of system is negative except what is mentioned above in HPI. PHYSICAL EXAMINATION Vital signs reviewed. Head: Normocephalic. Eyes: Sclerae nonicteric. Neck: Brisk carotid upstroke, no jugular venous distention. Lungs: Diminished breath sounds, poor inspiratory effort, mild crackles audible in the left lung lower base Heart: Irregular due to PVCs, systolic murmur radiating to carotids, preserved S2 Abdomen: Soft nontender, positive bowel sounds. Extremities: 1+ pitting edema bilateral lower extremity Neuro: Alert, oritented, no focal deficits. Detailed neuro exam was not performed. ASSESSMENT Frequent PVCs noticed on telemetry Paroxysmal atrial fibrillation, currently sinus rhythm Mild to moderate HFpEF exacerbation Hypervolemic hyponatremia, improving Prior history of lung fibrosis Prior history of CAD status post CABG Moderate aortic stenosis Frailty PLAN Increase metoprolol succinate to 50 mg daily. This is because of patient's resting heart rate around 70s with HFpEF and she also has intermittent PVCs. Continue IV Lasix 40 mg twice daily as per nephrology recommendations for hypervolemic hyponatremia. I would also recommend to screen her for SIADH making sure there is no hidden paraneoplastic syndrome going on. Going forward I would recommend her to be placed on p.o. diuretic example Bumex 1 mg p.o. daily I would recommend that patient should be placed on further dilated medical therapy when she is more optimized and does not need IV Lasix example SGLT2's. He is not on anticoagulation. She is planned for an outpatient ROBBIE to evaluate if her atrial clip appropriately ligating the left atrial appendage. She is not on anticoagulation because of a personal choice of high cost and significant bruising Continue Plavix, atorvastatin 40 mg daily Cory Garcia MD, FACC, RPVI Thank you for allowing [facility] to participate in this patient's care. Feel free to reach out in case of any followup questions. Past Medical History Past Medical History: Coronary Artery Disease (CAD), Cancer, CVA/TIA, Hyperlipidemia, Hypertension, Osteoarthritis (OA) Additional Past Medical History / Comment(s): skin cancer with removals, arthritis multiple joints, back and cervical pain, ?TIA A teens-shows up on scan?, PULMONARY FIBROSIS, HAD A KIDNEY FAILURE IN THE ICU. SEPSIS FOLLOWING OPEN HEART SURGERY- WAS IN HOSPITAL FOR 5 MONTHS History of Any Multi-Drug Resistant Organisms: None Reported Past Surgical History: Cardiac Valve Replacement, Cholecystectomy, Coronary Bypass/CABG, Heart Catheterization, Tonsillectomy, Tubal Ligation Additional Past Surgical History / Comment(s): 2-07-30 CABG, 2 cardiac caths without intervention, bilateral cataract removal with lens implants, skin cancer removals, cyst removed from neck, colonoscopy, cervical fusion Past Anesthesia/Blood Transfusion Reactions: No Reported Reaction Additional Past Anesthesia/Blood Transfusion Reaction / Comment(s): Pt has never received blood. Past Psychological History: No Psychological Hx Reported Additional Psychological History / Comment(s): Pt resides with her spouse. She drives. Smoking Status: Former smoker Past Alcohol Use History: Rare Additional Past Alcohol Use History / Comment(s): Pt started smoking in 3 and quit in 1981. She smoked one and half packs per day. Past Drug Use History: None Reported - Past Family History Brother(s) Family Medical History: Coronary Artery Disease (CAD) Additional Family Medical History / Comment(s): "bad heart" aneurysm Sister(s) Family Medical History: Cancer Additional Family Medical History / Comment(s): breast cancer Mother Family Medical History: Cancer, Coronary Artery Disease (CAD) Additional Family Medical History / Comment(s): Lymphoma, had a pacemaker. Mother at the age of 92yrs. Father Family Medical History: Coronary Artery Disease (CAD), Myocardial Infarction (NV) Additional Family Medical History / Comment(s): Father of a NV at the age of 63 yrs, diagnosed with CAD in his early 50s. Medications and Allergies Home Medications Medication Instructions Recorded Confirmed Type Clopidogrel [Plavix] 75 mg PO DAILY #30 tab 08/19/20 04/13/24 Rx Ibuprofen [Motrin] 800 mg PO Q8H PRN 10/26/21 04/13/24 History Ipratropium-Albuterol Nebulize 3 ml INHALATION RT-TID PRN 10/26/21 04/13/24 History [Duoneb 0.5 mg-3 mg/3 ml Soln] Baclofen 10 mg PO DAILY 04/03/23 04/13/24 History Metoprolol Succinate [Metoprolol 25 mg PO DAILY 04/03/23 04/13/24 History Succinate ER] Fluticasone/Umeclidin/Vilanter 1 puff INHALATION RT-DAILY 03/03/24 04/13/24 History [Trelegy Ellipta 100-62.5-25] Furosemide [Lasix] 20 mg PO DAILY 04/13/24 04/13/24 History Nitrofurantoin Monohyd/M-Cryst 100 mg PO BID 04/13/24 04/13/24 History [Macrobid] Rosuvastatin Calcium [Crestor] 40 mg PO DAILY 04/13/24 04/13/24 History busPIRone HCL 5 mg PO BID 04/13/24 04/13/24 History predniSONE See Taper PO DIRECTED 04/13/24 04/13/24 History Allergies Allergy/AdvReac Type Severity Reaction Status Date / Time adhesive Allergy blisters Verified 04/12/24 20:04 latex Allergy Rash/Hives Verified 04/12/24 20:04 Physical Exam Vitals: Vital Signs Temp Pulse Pulse Resp BP Pulse Ox 04/15/24 11:27 76 04/15/24 11:15 76 04/15/24 08:45 98.2 F 76 18 123/57 97 04/15/24 08:19 75 04/15/24 08:05 75 04/15/24 08:00 76 18 04/15/24 03:23 97.7 F 94 16 104/59 94 L 04/15/24 01:24 81 16 04/14/24 23:37 97.4 F L 81 16 115/77 99 04/14/24 20:00 97.8 F 82 16 102/51 96 04/14/24 16:20 76 04/14/24 16:09 78 04/14/24 16:00 97.8 F 89 14 129/71 92 L 04/14/24 14:00 82 16 04/14/24 11:59 98.1 F 82 16 107/64 97 04/14/24 11:57 95 04/14/24 11:48 97 Intake and Output 04/14/24 04/15/24 04/15/24 22:59 06:59 14:59 Output Total 1200 Balance -1200 Output: Urine 1200 Other: Voiding Method Toilet Toilet Toilet Weight 74.7 kg Results 04/15/24 07:03 04/15/24 07:03 Cardiac Enzymes 04/15/24 Range/Units 07:03 AST 25 (14-36) U/L CBC 04/15/24 Range/Units 07:03 WBC 6.6 (3.8-10.6) k/uL RBC 4.45 (3.80-5.40) m/uL Hgb 12.9 (11.4-16.0) gm/dL Hct 39.9 (34.0-46.0) % Plt Count 281 (150-450) k/uL Comprehensive Metabolic Panel 04/14/24 04/15/24 Range/Units 14:24 07:03 Sodium 126 L 128 L (137-145) mmol/L Potassium 3.9 (3.5-5.1) mmol/L Chloride 92 L (98-107) mmol/L Carbon Dioxide 30 (22-30) mmol/L BUN 19 H (7-17) mg/dL Creatinine 0.92 (0.52-1.04) mg/dL Glucose 85 (74-99) mg/dL Calcium 8.9 (8.4-10.2) mg/dL AST 25 (14-36) U/L ALT 20 (4-34) U/L Alkaline Phosphatase 74 (38-126) U/L Total Protein 5.7 L (6.3-8.2) g/dL Albumin 3.4 L (3.5-5.0) g/dL Current Medications Generic Name Dose Route Start Last Admin Trade Name Freq PRN Reason Stop Dose Admin Acetaminophen 650 mg 04/12/24 22:04 Acetaminophen Tab 325 Mg Tab PO Q6HR PRN Mild Pain or Fever > 100.5 Hydrocodone Bitart/Acetaminophen 1 each 04/12/24 22:04 04/15/24 03:28 Hydrocodone/Apap 5-325mg 1 Each Tab PO 1 each Q4HR PRN Administration Moderate Pain (Scale 4 to 6) Albuterol/Ipratropium 3 ml 04/13/24 04:12 04/14/24 11:48 Ipratropium-Albuterol 3 Ml Neb INHALATION 3 ml RT-TID PRN Administration Shortness Of Breath Or Wheezing Atorvastatin Calcium 40 mg 04/16/24 09:00 Atorvastatin 40 Mg Tab PO DAILY TORIBIO Baclofen 10 mg 04/13/24 12:15 04/15/24 09:06 Baclofen 10 Mg Tab PO 10 mg DAILY TORIBIO Administration Benzocaine/Menthol 1 each 04/15/24 09:29 Benzocaine/Menthol Lozeng 1 Each Lozenge MUCOUS MEM Q4HR PRN Sore Throat Budesonide/Formoterol Fumarate 2 puff 04/13/24 20:00 04/15/24 08:05 Symbicort 80-4.5 Mcg Inhaler INHALATION Not Given RT-BID TORIBIO Buspirone HCl 5 mg 04/13/24 12:15 04/15/24 09:06 Buspirone Hcl 5 Mg Tab PO 5 mg BID TORIBIO Administration Clopidogrel Bisulfate 75 mg 04/13/24 12:15 04/15/24 09:06 Clopidogrel 75 Mg Tab PO 75 mg DAILY TORIBIO Administration Furosemide 40 mg 04/14/24 09:00 04/15/24 09:06 Furosemide 10 Mg/Ml 4 Ml Vial IV 40 mg Q12HR TORIBIO Administration Guaifenesin 200 mg 04/15/24 09:39 Guaifenesin Syrup 100mg/5ml 200 Mg/10 Ml Cup PO TID PRN Cough Ipratropium [place] 0.5 mg 04/13/24 16:00 04/15/24 11:15 Ipratropium 0.5 Mg/2.5 Ml Nebu INHALATION 0.5 mg RT-QID TORIBIO Administration Metoprolol Succinate 50 mg 04/15/24 11:45 Metoprolol Succinate (Er) 50 Mg Tab.Er.24h PO DAILY TORIBIO Morphine Sulfate 4 mg 04/12/24 22:04 Morphine Sulfate 4 Mg/Ml Syringe IV Q4HR PRN Severe Pain (Scale 7 to 10) Naloxone HCl 0.2 mg 04/12/24 22:04 Naloxone 0.4 Mg/Ml 1 Ml Vial IV Q2M PRN Opioid Reversal Ondansetron HCl 4 mg 04/12/24 22:04 04/14/24 20:28 Ondansetron 4 Mg/2 Ml Vial IVP 4 mg Q8HR PRN Administration Nausea And Vomiting Pantoprazole Sodium 40 mg 04/13/24 09:00 04/15/24 09:06 Pantoprazole 40 Mg/10 Ml Vial IV 40 mg DAILY TORIBIO Administration Intake and Output 04/14/24 04/15/24 04/15/24 22:59 06:59 14:59 Output Total 1200 Balance -1200 Output: Urine 1200 Other: Voiding Method Toilet Toilet Toilet Weight 74.7 kg 04/15/24 07:03 04/15/24 07:03
[2024-04-15] MEDS: guaiFENesin SYRUP 100MG/5ML 200 MG/10 ML CUP PO PRN (11:57)
[2024-04-15] MEDS: BENZOCAINE/MENTHOL LOZENG 1 EACH LOZENGE MUCOUS MEM PRN (11:57)
[2024-04-15 12:07] VITALS: RESP 17
--- NOTE | 2024-04-15 14:12 | P.PN ---
Subjective Progress Note Date: 04/15/24 Principal diagnosis: Hypervolemic hyponatremia Hospital course: 04/13/24 Patient is a 79-year-old female who was admitted to the hospital with complaints of increased weakness. Patient also had productive cough. She denied any significant vomiting or diarrhea but has had nausea on and off. Patient states that she was recently started on Lasix for lower extremity swelling which has improved significantly now. Serum sodium was 123. Patient received fluid bolus in the ER. Repeat labs are not available. Patient also received a dose of IV Lasix. Chest x-ray shows increased pulmonary vascular congestion. Sodium was noted to be low at 125-119 on admission in February of this year and improved to 128 on 03/04/2024. At that time thiazide diuretics were discontinued and patient was maintained on fluid restriction. She also received a dose of Samsca. 04/14/24 patient is seen for follow-up for hypervolemic hyponatremia. Serum sodium was 123 today. Started on IV Lasix. Repeat sodium ordered for this afternoon. No significant complaints today. 04/15/24 Today the patient seems to be doing well. Notes an improvement in weakness, dysuria, lower extremity edema, shortness of breath. She still complains of cough, abdominal pain and mentions that the smell of food is irritating which is why she has a poor intake. Denies nausea, vomiting, hematuria. Sodium today is 128, creatinine 0.92, BUN 19, GFR 60. Vitals: T 98.2 F, P 73 bpm, RR 17, BP 100/60, O2 sat 94% on room air General: nontoxic, no distress, appears at stated age, obese Derm: warm, dry, intact Head: atraumatic, normocephalic, symmetric Eyes: EOMI, anicteric sclera Mouth: no lip lesion, mucus membranes moist Cardiovascular: S1 S2 reg, no murmur Lungs: CTA bilateral, no rhonchi, no rales, no accessory muscle use Abdominal: soft, non-tender to palpataion, no appreciable organomegaly Extremities: no gross muscle atrophy, no edema Neuro: Alert, Oriented, CNII-XII grossly intact, gait normal Psych: well appearing, appropriate affect Assessment: Hypotonic hypervolemic hyponatremia secondary to CHF and aortic stenosis History of hyponatremia during recent hospitalization in February Volume overload CAD with history of CABG Plan: Maintain IV fluid restriction. Continue furosemide 40 mg IV every 12 hours Repeat BMP tomorrow Repeat chest x-ray tomorrow I have seen and examine the patient with resident and agree with A&P as written. Check TSH. Objective - Vital Signs Vital signs: Vital Signs Temp 98.2 F 04/15/24 08:45 Pulse 76 04/15/24 08:45 Resp 18 04/15/24 08:45 BP 123/57 04/15/24 08:45 Pulse Ox 97 04/15/24 08:45 FiO2 Intake & Output 04/14/24 04/15/24 04/15/24 18:59 06:59 18:59 Output Total 1200 Balance -1200 Weight 74.7 kg Output: Urine 1200 Other: Voiding Method Toilet Toilet - Labs CBC & Chem 7: 04/15/24 07:03 04/15/24 07:03 Labs: Abnormal Lab Results - Last 24 Hours (Table) 04/13/24 04/13/24 04/14/24 Range/Units 21:05 21:05 14:24 Sodium 126 L (137-145) mmol/L Chloride (98-107) mmol/L BUN (7-17) mg/dL Total Protein (6.3-8.2) g/dL Albumin (3.5-5.0) g/dL Urine Osmolality 325 L (400-1100) mOsm/kg Ur Random Sodium <20 L (40-220) mmol/L 04/15/24 Range/Units 07:03 Sodium 128 L (137-145) mmol/L Chloride 92 L (98-107) mmol/L BUN 19 H (7-17) mg/dL Total Protein 5.7 L (6.3-8.2) g/dL Albumin 3.4 L (3.5-5.0) g/dL Urine Osmolality (400-1100) mOsm/kg Ur Random Sodium (40-220) mmol/L
[2024-04-15] MEDS: METOPROLOL SUCCINATE (ER) 50 MG TAB.ER.24H PO SCH (17:49)
[2024-04-16 07:42] LABS: African American GFR (CKD) 86 (>60 ml/min/1.73 sqM); Anion Gap 5 mmol/L; Blood Urea Nitrogen 21 mg/dL (7-17); Calcium 9.2 mg/dL (8.4-10.2); Carbon Dioxide 33 mmol/L (22-30); Chloride 94 mmol/L (98-107); Glucose 90 mg/dL (74-99); Non-African American GFR(CKD) 74 (>60 ml/min/1.73 sqM); Potassium 3.8 mmol/L (3.5-5.1); Sodium 132 mmol/L (137-145)
[2024-04-16] MEDS: ATORVASTATIN 40 MG TAB PO SCH (09:44)
--- NOTE | 2024-04-16 10:09 | XR ---
EXAMINATION TYPE: XR chest 2V DATE OF EXAM: 04/16/2024 COMPARISON: 04/12/2024 HISTORY: 79-year-old female follow-up pulmonary vascular congestion TECHNIQUE: PA and lateral views FINDINGS: Postoperative clips in the mediastinum. Heart borderline enlarged. Diffuse interstitial densities sim ilar. No reinaldo consolidation or pleural effusion. ACDF hardware. IMPRESSION: Similar borderline heart size and mild diffuse interstitial opacity. [facility], , 04/16/2024 10:07 AM
--- NOTE | 2024-04-16 11:18 | P.PN ---
Subjective Progress Note Date: 04/16/24 Principal diagnosis: Hypervolemic hyponatremia Hospital course: 04/13/24 Patient is a 79-year-old female who was admitted to the hospital with complaints of increased weakness. Patient also had productive cough. She denied any significant vomiting or diarrhea but has had nausea on and off. Patient states that she was recently started on Lasix for lower extremity swelling which has improved significantly now. Serum sodium was 123. Patient received fluid bolus in the ER. Repeat labs are not available. Patient also received a dose of IV Lasix. Chest x-ray shows increased pulmonary vascular congestion. Sodium was noted to be low at 125-119 on admission in February of this year and improved to 128 on 03/04/2024. At that time thiazide diuretics were discontinued and patient was maintained on fluid restriction. She also received a dose of Samsca. 04/14/24 patient is seen for follow-up for hypervolemic hyponatremia. Serum sodium was 123 today. Started on IV Lasix. Repeat sodium ordered for this afternoon. No significant complaints today. 04/15/24 Today the patient seems to be doing well. Notes an improvement in weakness, dysuria, lower extremity edema, shortness of breath. She still complains of cough, abdominal pain and mentions that the smell of food is irritating which is why she has a poor intake. Denies nausea, vomiting, hematuria. Sodium today is 128, creatinine 0.92, BUN 19, GFR 60. 04/16/24 Patient evaluated today, out of bed to chair. She complains of intermittent lower abdominal pain. Denies weakness, dysuria. Her shortness of breath and cou gh have improved. Labs today show Na 132, K 3.8, BUN 21, creatinine 0.77, GFR 74. TSH is 1.710. Chest xray shows no reinaldo consolidation or pleural effusion, similar borderline heart size and mild diffuse interstitial opacity. Vitals: T 97.5 F, P 73 bpm, RR 17, BP 102/53, O2 sat 96% on room air General: nontoxic, no distress, appears at stated age, obese Derm: warm, dry, intact Head: atraumatic, normocephalic, symmetric Eyes: EOMI, anicteric sclera Mouth: no lip lesion, mucus membranes moist Cardiovascular: S1 S2 reg, no murmur Lungs: CTA bilateral, no rhonchi, no rales, no accessory muscle use Abdominal: soft, non-tender to palpataion Extremities: no gross muscle atrophy, no edema Neuro: Alert, Oriented, CNII-XII grossly intact, gait normal Psych: well appearing, appropriate affect Assessment: Hypotonic hypervolemic hyponatremia secondary to CHF and aortic stenosis History of hyponatremia during recent hospitalization in February Volume overload, improving CAD with history of CABG Plan: Maintain fluid restriction. Change Furosemide to PO 40mg BID Potassium replacement 20 meq I have seen and examined the patient with the resident and agree with A&P as written. advised patient to maintain FR <50-55 oz/d upon d/c and low sodium diet. repeat bmp, mag in 2-3 days post d/c; f/u outpatient in 1-2 weeks. Objective - Vital Signs Vital signs: Vital Signs Temp 97.5 F L 04/16/24 03:22 Pulse 75 04/16/24 08:11 Resp 17 04/16/24 03:22 BP 102/53 04/16/24 03:22 Pulse Ox 96 04/16/24 03:22 FiO2 Intake & Output 04/15/24 04/16/24 04/16/24 18:59 06:59 18:59 Intake Total 1020 Output Total 2700 Balance -2700 1020 Weight 73.9 kg Intake: Oral 1020 Output: Urine 2700 Other: Voiding Method Toilet Toilet - Labs CBC & Chem 7: 04/15/24 07:03 04/16/24 06:56 Labs: Abnormal Lab Results - Last 24 Hours (Table) 04/16/24 Range/Units 06:56 Sodium 132 L (137-145) mmol/L Chloride 94 L (98-107) mmol/L Carbon Dioxide 33 H (22-30) mmol/L BUN 21 H (7-17) mg/dL
[2024-04-16] MEDS: POTASSIUM CHLORIDE 20 MEQ in WATER FOR INJECTION 1 100ML.BAG IVPB STA (13:09)
[2024-04-16] MEDS: POTASSIUM CHLORIDE ER 20 MEQ TAB.ER PO STA (13:31)
[2024-04-16] MEDS: SPIRONOLACTONE 25 MG TAB PO SCH (13:32)
[2024-04-16] MEDS: DAPAGLIFLOZIN PROPANEDIOL 10 MG TABLET PO SCH (13:32)
[2024-04-16 13:41] VITALS: TEMP 98.2
--- NOTE | 2024-04-16 14:26 | P.DS ---
Providers Date of admission: 04/12/24 22:04 Discharge Diagnosis: Hyponatremia Dysuria Dry cough Weakness Shortness of breath History of CAD Hypertension Hyperlipidemia Hospital Course: 79-year-old female with a past medical history of CAD, CVA/TIA, hyperlipidemia, hypertension, OA presents with complaints of coughing, shortness of breath, and weakness. Patient reports over the last couple of days she has felt increasingly weak, short of breath, and has had a productive cough. Patient al so reports she has had significant nausea and felt like she is going to vomit. Patient denies any sick contacts. Patient reports she also has been having lightheadedness, and it became so severe that she decided to come to the ED. Patient reports she has not been eating much food at all for the last 3 to 4 days, only sustenance has been tea and some toast. Patient also reports she was prescribed nitrofurantoin for a "kidney infection"' for which she has taken 2 doses so far. Initial lab work done in the ER showed WBC 9.2, hemoglobin 14.1, MCV 87.2, sodium 123, potassium 4.4, chloride 90, creatinine 0.67, AST 38, troponin less than 0.012, and BNP 539. Patient also had UA that was within normal limits. EKG done in the ER independently interpreted showed heart rate of 83, SNR with occasional supraventricular premature complexes, possible left atrial enlargement, incomplete right bundle branch block. Chest x-ray done in the ER independently interpreted showed an enlarged heart, prominent pulmonary vasculature, and diffuse increased lung markings. There was no focal consolidation identified. Patient admitted to internal medicine service. 04/14. Patient seen and examined. Complaining lethargy and weakness. Complaining of shortness of breath on exertion 04/15. Patient seen at bedside no significant overnight events. Sodium increased from 126 to 128. Patient reports her symptoms of weakness and shortness of breath have resolved, but she still has a lingering dry cough. 04/16. Patient seen at bedside with no significant overnight events. Sodium increased from 128-132. Patient's metoprolol increased to 50 mg p.o. daily. Patient discharged with Aldactone 12.5 mg p.o. daily, Farxiga 10 mg p.o. daily by cardiology. Patient discharged with Lasix 40 mg p.o. twice daily by nephrology. 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 She is to be discharged home. Vital signs reviewed and stable. PHYSICAL EXAMINATION: GENERAL: The patient is alert and oriented x3, not in any acute distress. Well developed, well nourished. HEENT: Pupils are round and equally reacting to light. EOMI. No scleral icterus. No conjunctival pallor. Normocephalic, atraumatic. No pharyngeal erythema. No thyromegaly. CARDIOVASCULAR: S1 and S2 present. Systolic murmur auscultated at the aortic and pulmonic post. PULMONARY: Chest is clear to auscultation, no wheezing or crackles. ABDOMEN: Soft, nontender, nondistended, normoactive bowel sounds. No palpable organomegaly. MUSCULOSKELETAL: No joint swelling or deformity. EXTREMITIES: No cyanosis, clubbing, or pedal edema. NEUROLOGICAL: Gross neurological examination did not reveal any focal deficits. SKIN: No rashes. A total of 35 minutes of time were spent preparing this complex discharge summary. Patient was discharge on April 16, 2024 at 13:21. Attestation I have seen and examined this patient with my resident , discussed the same with the resident/MATT, and agree with the dictator's assessment and plan as written Dr. Giacomo andrew Expected date of discharge: 04/16/24 Attending physician: Gurpreet Jackson Consults: 04/12/24 22:04 Consult Physician Urgent Consulting Provider: Renae Lema Consult Reason/Comments: Hyponatremia Do you want consulting provider notified?: Yes 04/14/24 11:57 Consult Physician Routine Consulting Provider: Wesly Tobin Consult Reason/Comments: irregular heart rhythm,possibly junctional, cad history Do you want consulting provider notified?: Yes Primary care physician: Rich Avila Patient Condition at Discharge: Stable Plan - Discharge Summary Discharge Rx Participant: Yes New Discharge Prescriptions: New Metoprolol Succinate (ER) [Toprol XL] 50 mg PO DAILY #60 tab Spironolactone [Aldactone] 12.5 mg PO DAILY 30 Days #30 tab Furosemide [Lasix] 40 mg PO BID 30 Days #60 tab Dapagliflozin Propanediol [Farxiga] 10 mg PO DAILY 30 Days #30 tab Continue Clopidogrel [Plavix] 75 mg PO DAILY #30 tab Ipratropium-Albuterol Nebulize [Duoneb 0.5 mg-3 mg/3 ml Soln] 3 ml INHALATION RT-TID PRN PRN Reason: Shortness Of Breath Or Wheezing Ibuprofen [Motrin] 800 mg PO Q8H PRN PRN Reason: Pain Rosuvastatin Calcium [Crestor] 40 mg PO DAILY predniSONE See Taper PO DIRECTED Baclofen 10 mg PO DAILY Fluticasone/Umeclidin/Vilanter [Trelegy Ellipta 100-62.5-25] 1 puff INHALATION RT-DAILY busPIRone HCL 5 mg PO BID Nitrofurantoin Monohyd/M-Cryst [Macrobid] 100 mg PO BID Discontinued Metoprolol Succinate [Metoprolol Succinate ER] 25 mg PO DAILY Furosemide [Lasix] 20 mg PO DAILY Discharge Medication List Clopidogrel [Plavix] 75 mg PO DAILY #30 tab 08/19/20 [Rx] Ibuprofen [Motrin] 800 mg PO Q8H PRN 10/26/21 [History] Ipratropium-Albuterol Nebulize [Duoneb 0.5 mg-3 mg/3 ml Soln] 3 ml INHALATION RT-TID PRN 10/26/21 [History] Baclofen 10 mg PO DAILY 04/03/23 [History] Fluticasone/Umeclidin/Vilanter [Trelegy Ellipta 100-62.5-25] 1 puff INHALATION RT-DAILY 03/03/24 [History] Nitrofurantoin Monohyd/M-Cryst [Macrobid] 100 mg PO BID 04/13/24 [History] Rosuvastatin Calcium [Crestor] 40 mg PO DAILY 04/13/24 [History] busPIRone HCL 5 mg PO BID 04/13/24 [History] predniSONE See Taper PO DIRECTED 04/13/24 [History] Dapagliflozin Propanediol [Farxiga] 10 mg PO DAILY 30 Days #30 tab 04/16/24 [Rx] Furosemide [Lasix] 40 mg PO BID 30 Days #60 tab 04/16/24 [Rx] Metoprolol Succinate (ER) [Toprol XL] 50 mg PO DAILY #60 tab 04/16/24 [Rx] Spironolactone [Aldactone] 12.5 mg PO DAILY 30 Days #30 tab 04/16/24 [Rx] Follow up Appointment(s)/Referral(s): Dilip Sloan MD [STAFF PHYSICIAN] - 1 Week (April 23 11:00) Angel Luis Duke DO [STAFF PHYSICIAN] - 10 Days (May 09, 10:20) Rich Avila MD [Primary Care Provider] - 1 Week Patient Instructions/Handouts: Heart Failure (DC), Hyponatremia (DC), Weakness (DC) Discharge Disposition: HOME SELF-CARE
[2024-04-16] MEDS ORDERED: FUROSEMIDE 40 MG TAB PO SCH (16:00)
[2024-04-16 16:39] VITALS: BP 98/58; PULSE 66
--- NOTE | 2024-04-16 17:34 | P.PN ---
Subjective Progress Note Date: 04/16/24 HISTORY OF PRESENTING ILLNESS Patient is a 79-year-old female with past medical history of paroxysmal atrial fibrillation, pulmonary fibrosis, coronary artery disease status post CABG because a left main disease, moderate aortic stenosis follows up with Dr. Sloan. She was recently in the hospital in February 2024 where she was admitted and treated for acute hypoxic respiratory failure. Not much changes to her medications were made at that time This time she presented because of generalized weakness. She saw her primary care physician 3 days ago and she was started on diuretics because of her lower extremity edema. On admission to ER she was noticed to be hypervolemic hyponatremic for which ne phrology team started on diuretics. Cardiology is consulted for mild abnormalities noticed on telemetry. On review of telemetry her lowest heart rate is around mid 60s with intermittent PVCs with compensatory pauses. Her ECG shows sinus rhythm with PVCs. Chest x-ray shows cardiomegaly with mild increased interstitial marking and curly B-lines/show mild pulm congestion. Progress note April 16, 2024 Patient is seen and examined at bedside this a.m. She denies having any active chest pain chest pressure. She reports that her shortness of breath is improved. BP 103/58, heart rate 72 bpm, PHYSICAL EXAMINATION Vital signs reviewed. Head: Normocephalic. Eyes: Sclerae nonicteric. Neck: Brisk carotid upstroke, no jugular venous distention. Lungs: Diminished breath sounds, poor inspiratory effort, mild crackles audible in the left lung lower base Heart: Irregular due to PVCs, systolic murmur radiating to carotids, preserved S2 Abdomen: Soft nontender, positive bowel sounds. Extremities: 1+ pitting edema bilateral lower extremity Neuro: Alert, oritented, no focal deficits. Detailed neuro exam was not performed. ASSESSMENT Frequent PVCs noticed on telemetry Paroxysmal atrial fibrillation, currently sinus rhythm Mild to moderate HFpEF exacerbation Hypervolemic hyponatremia, improving Prior history of lung fibrosis Prior history of CAD status post CABG Moderate aortic stenosis Frailty PLAN Increase metoprolol succinate to 50 mg daily. This is because of patient's resting heart rate around 70s with HFpEF and she also has intermittent PVCs. Was treated with IV Lasix 40 mg twice daily as per nephrology recommendations for hypervolemic hyponatremia. I would also recommend to screen her for SIADH making sure there is no hidden paraneoplastic syndrome going on. Going forward I would recommend her to be placed on p.o. diuretic example Bumex 1 mg p.o. daily Start Farxiga 10 mg daily, Aldactone 12.5 mg daily, He is not on anticoagulation. She is planned for an outpatient ROBBIE to evaluate if her atrial clip appropriately ligating the left atrial appendage. She is not on anticoagulation because of a personal choice of high cost and significant bruising Continue Plavix, atorvastatin 40 mg daily Patient is cleared from cardiovascular standpoint with recommended outpatient follow-up. Objective - Vital Signs Vital signs: Vital Signs Temp 98.2 F 04/16/24 16:30 Pulse 66 04/16/24 16:30 Resp 17 04/16/24 16:30 BP 98/58 04/16/24 16:30 Pulse Ox 95 04/16/24 16:30 FiO2 Intake & Output 04/15/24 04/16/24 04/16/24 18:59 06:59 18:59 Intake Total 1020 Output Total 2700 Balance -2700 1020 Weight 73.9 kg Intake: Oral 1020 Output: Urine 2700 Other: Voiding Method Toilet Toilet Toilet - Labs CBC & Chem 7: 04/15/24 07:03 04/16/24 06:56 Labs: Abnormal Lab Results - Last 24 Hours (Table) 04/16/24 Range/Units 06:56 Sodium 132 L (137-145) mmol/L Chloride 94 L (98-107) mmol/L Carbon Dioxide 33 H (22-30) mmol/L BUN 21 H (7-17) mg/dL
[2024-04-17] MEDS ORDERED: FUROSEMIDE 40 MG TAB PO SCH (09:00)
== END 2024-04-16 17:28 | disposition home or self-care (01) | DRG 640 ==
LOC: EC 20:00 → 5NMEDONC 22:04 → 3SCARD 22:27
PROVIDERS: ADMIT Hospitalist; ATTEND Hospitalist
DX: E87.1 Hypo-osmolality and hyponatremia (principal); I50.33 Acute on chronic diastolic (congestive) heart failure; J96.01 Acute respiratory failure with hypoxia; E78.5 Hyperlipidemia, unspecified; I11.0 Hypertensive heart disease with heart failure; I25.10 Atherosclerotic heart disease of native coronary artery without angina pectoris; I35.0 Nonrheumatic aortic (valve) stenosis; I48.0 Paroxysmal atrial fibrillation; I49.1 Atrial premature depolarization; M19.90 Unspecified osteoarthritis, unspecified site; E86.1 Hypovolemia; R54 Age-related physical debility; I95.9 Hypotension, unspecified; I45.10 Unspecified right bundle-branch block; M54.2 Cervicalgia; E66.9 Obesity, unspecified; I49.3 Ventricular premature depolarization; J84.10 Pulmonary fibrosis, unspecified; K59.00 Constipation, unspecified; N15.9 Renal tubulo-interstitial disease, unspecified; Z95.2 Presence of prosthetic heart valve; Z68.35 Body mass index [BMI] 35.0-35.9, adult; Z20.822 Contact with and (suspected) exposure to COVID-19; Z79.899 Other long term (current) drug therapy; Z79.02 Long term (current) use of antithrombotics/antiplatelets; Z85.828 Personal history of other malignant neoplasm of skin; Z86.73 Personal history of transient ischemic attack (TIA), and cerebral infarction without residual deficits; Z87.891 Personal history of nicotine dependence; Z95.1 Presence of aortocoronary bypass graft; Z91.040 Latex allergy status; Z98.1 Arthrodesis status
CPT/HCPCS: 36415; 71046; 80048; 80053; 81001; 83605; 83735; 83880; 83930; 83935; 84295; 84300; 84443; 84484; 85025; 87636; 93005; 94640; 94760; 96361; 96374; 99285

== ENCOUNTER 2024-04-19 14:35 | Inpatient (IN) | payer MEDICARE ==
--- NOTE | 2024-04-19 16:05 | ED ---
General Adult HPI - General Chief complaint: Neuro Symptoms/Deficit Stated complaint: Bilateral leg/arm numbness Time Seen by Provider: 04/19/24 15:35 Source: patient, family Mode of arrival: wheelchair Limitations: no limitations - History of Present Illness Initial comments: This patient is a 79-year-old woman who presents to have evaluation for a number of symptoms that been going on a little over a week. Patient states she had been in the hospital for treatment for congestive heart failure when she noticed most of the symptoms. She is having left occipital headache that has gotten progressively worse and is now worst headache of life. She describes it as aching with a burning component. She has not noted worsening or relieving factors. No associated neck stiffness. No change in vision speech or swallowing. She is having paresthesias to all 4 extremities and to her scalp as well. That she had described the symptoms prior to leaving the hospital 2 days ago and is not sure if they were addressed. -: week(s) Location: head Radiation: non-radiation Quality: aching Consistency: constant Improves with: none Worsens with: none Associated Symptoms: other (Paresthesias) Treatments Prior to Arrival: none - Related Data Home Medications Medication Instructions Recorded Confirmed Ibuprofen [Motrin] 800 mg PO Q8H PRN 10/26/21 04/13/24 Ipratropium-Albuterol Nebulize 3 ml INHALATION RT-TID PRN 10/26/21 04/13/24 [Duoneb 0.5 mg-3 mg/3 ml Soln] Baclofen 10 mg PO DAILY 04/03/23 04/13/24 Fluticasone/Umeclidin/Vilanter 1 puff INHALATION RT-DAILY 03/03/24 04/13/24 [Trelegy Ellipta 100-62.5-25] Nitrofurantoin Monohyd/M-Cryst 100 mg PO BID 04/13/24 04/13/24 [Macrobid] Rosuvastatin Calcium [Crestor] 40 mg PO DAILY 04/13/24 04/13/24 busPIRone HCL 5 mg PO BID 04/13/24 04/13/24 predniSONE See Taper PO DIRECTED 04/13/24 04/13/24 Previous Rx's Medication Instructions Recorded Clopidogrel [Plavix] 75 mg PO DAILY #30 tab 08/19/20 Dapagliflozin Propanediol [Farxiga] 10 mg PO DAILY 30 Days #30 tab 04/16/24 Furosemide [Lasix] 40 mg PO BID 30 Days #60 tab 04/16/24 Metoprolol Succinate (ER) [Toprol 50 mg PO DAILY #60 tab 04/16/24 XL] Spironolactone [Aldactone] 12.5 mg PO DAILY 30 Days #30 tab 04/16/24 Allergies Allergy/AdvReac Type Severity Reaction Status Date / Time adhesive Allergy blisters Verified 04/12/24 20:04 latex Allergy Rash/Hives Verified 04/12/24 20:04 Review of Systems ROS Statement: Those systems with pertinent positive or pertinent negative responses have been documented in the HPI. ROS Other: All systems not noted in ROS Statement are negative. Constitutional: Denies: fever, chills, weakness Eyes: Denies: eye pain, vision change ENT: Denies: ear pain, hearing loss, congestion Respiratory: Denies: cough, dyspnea Cardiovascular: Denies: chest pain, palpitations, edema Gastrointestinal: Denies: abdominal pain, vomiting, diarrhea Genitourinary: Denies: dysuria, hematuria Musculoskeletal: Denies: back pain Skin: Denies: rash Neurological: Reports: headache, paresthesias. Denies: weakness, numbness, confusion Past Medical History Past Medical History: Coronary Artery Disease (CAD), Cancer, Heart Failure, CVA/TIA, Hyperlipidemia, Hypertension, Osteoarthritis (OA) Additional Past Medical History / Comment(s): skin cancer with removals, arthritis multiple joints, back and cervical pain, ?TIA A teens-shows up on scan?, PULMONARY FIBROSIS, HAD A KIDNEY FAILURE IN THE ICU. SEPSIS FOLLOWING OPEN HEART SURGERY- WAS IN HOSPITAL FOR 5 MONTHS History of Any Multi-Drug Resistant Organisms: None Reported Past Surgical History: Cardiac Valve Replacement, Cholecystectomy, Coronary Bypass/CABG, Heart Catheterization, Tonsillectomy, Tubal Ligation Additional Past Surgical History / Comment(s): 2--21 CABG, 2 cardiac caths without intervention, bilateral cataract removal with lens implants, skin cancer removals, cyst removed from neck, colonoscopy, cervical fusion, skin graft tip of nose Past Anesthesia/Blood Transfusion Reactions: No Reported Reaction Additional Past Anesthesia/Blood Transfusion Reaction / Comment(s): Pt has never received blood. Past Psychological History: No Psychological Hx Reported Smoking Status: Former smoker Past Alcohol Use History: Rare Past Drug Use History: None Reported - Past Family History Brother(s) Family Medical History: Coronary Artery Disease (CAD) Additional Family Medical History / Comment(s): "bad heart" aneurysm Sister(s) Family Medical History: Cancer Additional Family Medical History / Comment(s): breast cancer Mother Family Medical History: Cancer, Coronary Artery Disease (CAD) Additional Family Medical History / Comment(s): Lymphoma, had a pacemaker. Mother at the age of 92yrs. Father Family Medical History: Coronary Artery Disease (CAD), Myocardial Infarction (WA) Additional Family Medical History / Comment(s): Father of a WA at the age of 63 yrs, diagnosed with CAD in his early 50s. General Exam Limitations: no limitations General appearance: alert, in no apparent distress Head exam: Present: atraumatic, normocephalic Eye exam: Present: normal appearance, PERRL, EOMI. Absent: scleral icterus, conjunctival injection, nystagmus ENT exam: Present: mucous membranes dry Neck exam: Present: normal inspection, full ROM. Absent: tenderness, meningismus Respiratory exam: Present: normal lung sounds bilaterally. Absent: respiratory distress, wheezes, rales, rhonchi, stridor, accessory muscle use Cardiovascular Exam: Present: regular rate, normal rhythm, systolic murmur (Grade 4/6 systolic ejection murmur at left sternal border consistent with aortic stenosis). Absent: diastolic murmur, rubs, gallop GI/Abdominal exam: Present: soft. Absent: distended, tenderness, guarding, rebound, rigid, mass Extremities exam: Present: normal inspection, normal capillary refill, pedal edema (Trace at ankles). Absent: calf tenderness Back exam: Present: normal inspection. Absent: CVA tenderness (R), CVA tenderness (L) Neurological exam: Present: alert Skin exam: Present: warm, dry, intact, normal color. Absent: rash Course Vital Signs 04/19/24 04/19/24 14:50 14:56 Temperature 97.8 F Pulse Rate 73 Respiratory 18 18 Rate Blood Pressure 153/87 149/70 O2 Sat by Pulse 99 Oximetry EKG Findings - EKG Comments: EKG Findings:: Possible old anterior [place]. - EKG Results: EKG: interpreted by ERMD, sinus rhythm (Rate 72 bpm) - Blocks, [place], Hypertrophy, ST Abn: AV and intraventricular conduction: 1 AV block QRS axis and voltage: right axis deviation (+90 to +180) (Borderline), low voltage (<0.5 MV total QRS and <1.0 MV in each precordial lead) Disposition Referrals: Rich Avila MD [Primary Care Provider] - 1-2 days
--- NOTE | 2024-04-19 16:39 | CT ---
EXAMINATION TYPE: CT brain wo con DATE OF EXAM: 04/19/2024 COMPARISON: 09/10/2020 HISTORY: headache, weakness CT DLP: 1018.[address] of the brain was performed. The ventricles, basal cisterns and sulci overlying the cerebral convexities demonstrate mild enlargem ent. There is no evidence for intracranial hemorrhage or sulcal effacement. There is decreased attenuation about the periventricular white matter and deep white matter of both c erebral hemispheres, compatible with chronic small vessel ischemia. Differential diagnosis does inclu de demyelination. No mass effects are seen.No midline shift. Osseous calvarium is intact. If symptoms persist consider MRI. IMPRESSION: 1. Age related atrophic and chronic small vessel ischemic change without acute intracranial process s een at this time. [facility], , 04/19/2024 4:37 PM
[2024-04-19 17:03] LABS: Basophils # (A) 0.1 k/uL (0-0.2); Basophils % (A) 1 %; Eosinophils # (A) 0.4 k/uL (0-0.7); Eosinophils % (A) 4 %; HCT 40.9 % (34.0-46.0); HGB 14.3 gm/dL (11.4-16.0); Lymphocytes # (A) 2.4 k/uL (1.0-4.8); Lymphocytes % (A) 26 %; MCH 30.1 pg (25.0-35.0); MCV 86.1 fL (80.0-100.0); Mean Platelet Volume 7.7; Monocytes # (A) 0.6 k/uL (0-1.0); Monocytes % (A) 6 %; Neutrophils # (A) 5.7 k/uL (1.3-7.7); Neutrophils % (A) 61 %; Platelet Count 291 k/uL (150-450); RBC 4.75 m/uL (3.80-5.40); RDW 13.5 % (11.5-15.5); WBC 9.3 k/uL (3.8-10.6)
[2024-04-19 17:17] LABS: ALT 25 U/L (4-34); AST 33 U/L (14-36); African American GFR (CKD) 81 (>60 ml/min/1.73 sqM); Albumin 4.6 g/dL (3.5-5.0); Alkaline Phosphatase 103 U/L (38-126); Anion Gap 8 mmol/L; Blood Urea Nitrogen 20 mg/dL (7-17); C Reactive Protein <0.5 mg/dL (<1.0); Calcium 9.4 mg/dL (8.4-10.2); Carbon Dioxide 27 mmol/L (22-30); Chloride 93 mmol/L (98-107); Glucose 90 mg/dL (74-99); Magnesium 2.1 mg/dL (1.6-2.3); Non-African American GFR(CKD) 70 (>60 ml/min/1.73 sqM); Sodium 128 mmol/L (137-145); Total Protein 6.9 g/dL (6.3-8.2)
[2024-04-19] MEDS ORDERED: NALOXONE 0.4 MG/ML 1 ML VIAL IV PRN (19:56)
[2024-04-19] MEDS ORDERED: ACETAMINOPHEN TAB 325 MG TAB PO PRN (19:56)
[2024-04-19] MEDS: FUROSEMIDE 40 MG TAB PO SCH (20:21)
[2024-04-19] MEDS: busPIRone HCl 5 MG TAB PO SCH (20:21)
[2024-04-19] MEDS: SODIUM CHLORIDE 0.9% 1,000 ML IV SCH (20:26)
[2024-04-19] MEDS: HYDROcodone/APAP 5-325MG 1 EACH TAB PO PRN (22:44)
[2024-04-19] MEDS: IPRATROPIUM-ALBUTEROL 3 ML NEB INHALATION PRN (23:02)
[2024-04-20] MEDS: ATORVASTATIN 80 MG TAB PO SCH (07:39)
[2024-04-20] MEDS: CLOPIDOGREL 75 MG TAB PO SCH (07:39)
[2024-04-20] MEDS: METOPROLOL SUCCINATE (ER) 50 MG TAB.ER.24H PO SCH (07:39)
[2024-04-20] MEDS: DAPAGLIFLOZIN PROPANEDIOL 10 MG TABLET PO SCH (07:39)
[2024-04-20] MEDS: SPIRONOLACTONE 25 MG TAB PO SCH (07:40)
[2024-04-20] MEDS: SYMBICORT 80-4.5 MCG INHALER INHALATION SCH (08:07)
[2024-04-20] MEDS: IPRATROPIUM 0.5 MG/2.5 ML NEBU INHALATION SCH (08:08)
[2024-04-20 12:20] LABS: African American GFR (CKD) >90 (>60 ml/min/1.73 sqM); Anion Gap 11 mmol/L; Blood Urea Nitrogen 16 mg/dL (7-17); Calcium 9.3 mg/dL (8.4-10.2); Carbon Dioxide 24 mmol/L (22-30); Chloride 92 mmol/L (98-107); Glucose 98 mg/dL (74-99); Non-African American GFR(CKD) 78 (>60 ml/min/1.73 sqM); Potassium 3.5 mmol/L (3.5-5.1); Sodium 127 mmol/L (137-145)
[2024-04-20] MEDS: NYSTATIN 100,000 UNIT/ML SUSP 500,000 UNIT/5 ML CUP PO SCH (13:06)
--- NOTE | 2024-04-20 13:15 | P.CNNES ---
History of Present Illness Consult date: 04/20/24 Requesting physician: Ramana Gaytan Reason for Consult: headache and paresthesia History of Present Illness: This is a 79-year-old woman who presented emergency department because of weakness and numbness of upper and lower extremity. Patient stated yesterday she noticed her left upper and lower extremity felt like Jell-O as well as she felt numb. She also is having left neck pain and points to the left occipital region and she feels that it feels like a burning sensation. She states about 5 years ago she had neck surgery and she had a cage placed. She continues to have neck pain. She has multiple medical issues in which she has coronary artery disease, heart failure, pulmonary fibrosis, CABG, she has history of skin cancer. She has cardiac valve replacement. States that she was recently discharged about 2 days ago and she had low sodium as well as congestive heart failure. Some of the workup during this hospital visit consisted of: CBC with differential is unremarkable Sodium is 128 and the repeated is 127. On 03/04/2024 was as low as 119. CRP is less than 0.5. Calcium, magnesium, creatinine is within normal limits CT of the head is reported as age-related atrophy and chronic small vessel is chemic change without acute intracranial process seen at this time. I personally reviewed the CT and agree with that. Review of Systems The positive and negative as per HPI. Past Medical History Past Medical History: Atrial Fibrillation, Coronary Artery Disease (CAD), Cancer, Heart Failure, CVA/TIA, Hyperlipidemia, Hypertension, Osteoarthritis (OA) Additional Past Medical History / Comment(s): skin cancer with removals, arthritis multiple joints, back and cervical pain, ?TIA A teens-shows up on scan?, PULMONARY FIBROSIS, HAD A KIDNEY FAILURE IN THE ICU. SEPSIS FOLLOWING OPEN HEART SURGERY- WAS IN HOSPITAL FOR 5 MONTHS History of Any Multi-Drug Resistant Organisms: None Reported Past Surgical History: Cardiac Valve Replacement, Cholecystectomy, Coronary Bypass/CABG, Heart Catheterization, Tonsillectomy, Tubal Ligation Additional Past Surgical History / Comment(s): 2--21 CABG, 2 cardiac caths without intervention, bilateral cataract removal with lens implants, skin cancer removals, cyst removed from neck, colonoscopy, cervical fusion, skin graft tip of nose Past Anesthesia/Blood Transfusion Reactions: No Reported Reaction Additional Past Anesthesia/Blood Transfusion Reaction / Comment(s): Pt has never received blood. Smoking Status: Former smoker - Past Family History Brother(s) Family Medical History: Coronary Artery Disease (CAD) Additional Family Medical History / Comment(s): "bad heart" aneurysm Sister(s) Family Medical History: Cancer Additional Family Medical History / Comment(s): breast cancer Mother Family Medical History: Cancer, Coronary Artery Disease (CAD) Additional Family Medical History / Comment(s): Lymphoma, had a pacemaker. Mother at the age of 92yrs. Father Family Medical History: Coronary Artery Disease (CAD), Myocardial Infarction ([place]) Additional Family Medical History / Comment(s): Father of a IA at the age of 63 yrs, diagnosed with CAD in his early 50s. Medications and Allergies Home Medications Medication Instructions Recorded Confirmed Type Clopidogrel [Plavix] 75 mg PO DAILY #30 tab 08/19/20 04/19/24 Rx Ibuprofen [Motrin] 800 mg PO Q8H PRN 10/26/21 04/19/24 History Ipratropium-Albuterol Nebulize 3 ml INHALATION RT-TID PRN 10/26/21 04/19/24 History [Duoneb 0.5 mg-3 mg/3 ml Soln] Baclofen 10 mg PO DAILY 04/03/23 04/19/24 History Fluticasone/Umeclidin/Vilanter 1 puff INHALATION RT-DAILY 03/03/24 04/19/24 History [Trelegy Ellipta 100-62.5-25] Rosuvastatin Calcium [Crestor] 40 mg PO DAILY 04/13/24 04/19/24 History busPIRone HCL 5 mg PO BID 04/13/24 04/19/24 History Dapagliflozin Propanediol [Farxiga] 10 mg PO DAILY 30 Days #30 tab 04/16/24 04/19/24 Rx Furosemide [Lasix] 40 mg PO BID 30 Days #60 tab 04/16/24 04/19/24 Rx Metoprolol Succinate (ER) [Toprol 50 mg PO DAILY #60 tab 04/16/24 04/19/24 Rx XL] Spironolactone [Aldactone] 12.5 mg PO DAILY 30 Days #30 tab 04/16/24 04/19/24 Rx Allergies Allergy/AdvReac Type Severity Reaction Status Date / Time adhesive Allergy blisters Verified 04/19/24 20:46 latex Allergy Rash/Hives Verified 04/19/24 20:46 Physical Examination - Vital Signs Vital Signs: Vital Signs Temp Pulse Pulse Resp BP BP Pulse Ox 04/20/24 11:42 76 04/20/24 11:29 75 04/20/24 08:20 66 04/20/24 08:08 64 04/20/24 07:08 97.9 F 67 20 111/71 97 04/20/24 00:58 98.2 F 89 18 96/61 92 L 04/19/24 23:10 68 04/19/24 23:04 66 04/19/24 21:40 98.1 F 64 17 144/69 96 04/19/24 21:11 75 18 140/75 95 04/19/24 18:38 78 18 140/76 96 04/19/24 17:23 98 F 78 18 138/78 96 04/19/24 14:56 18 149/70 04/19/24 14:50 97.8 F 73 18 153/87 99 Intake and Output 04/19/24 04/20/24 04/20/24 22:59 06:59 14:59 Intake Total 530 Balance 530 Intake: Oral 530 Other: # Voids 2 # Bowel Movements 1 Weight 73.482 kg 71.5 kg GENERAL: The patient is sitting in a recliner chair and is not in acute distress. HENT: Has pain over the left occipital region to touch. NEUROLOGICAL: Higher mental function: The patient is awake, alert, oriented to self, place and time. Patient is following commands. No aphasia and no neglect. Cranial nerves: The pupils are round, equal and reactive to light and accommodation. Visual lópez are full to confrontation throughout. Extraocular movement is intact no nystagmus is noted. Facial sensation is normal to touch throughout. The facial strength is normal throughout. Hearing is normal ely aterally to hand rub. Tongue is midline and moved [id number] without any difficulty. No dysarthria is noted. Shoulder shrug is normal bilaterally. Motor: The strength is 5 over 5 throughout. Normal tone and bulk. Cerebellum: Normal finger to nose bilaterally. Sensation: Sensation is normal to touch throughout. Reflexes (right/left): Biceps 3/2; triceps 3/3; brachioradialis 3/3; patell ar 3/2; ankles 2/2. +ve lau sign bilaterally. Plantars appear upgoing at baseline bilaterally. Results - Laboratory Findings CBC and BMP: 04/19/24 16:46 04/20/24 11:23 Abnormal Lab Findings: Abnormal Labs 04/19/24 04/20/24 16:46 11:23 Sodium 128 L 127 L Chloride 93 L 92 L BUN 20 H Assessment and Plan Assessment: This is a 79-year-old woman with multiple medical issues including skin cancer who presents to the emergency department because of episode of bilateral upper and lower extremity weakness and she fell yesterday felt like Jell-O as well as complaining of left neck pain and less of occipital pain. She has history of s urgery in which she had a cage placed about 5 years ago. She was recently discharged with hyponatremia and congestive heart failure and she stated that she was discharged about 2 days ago. Transient episode of bilateral upper lower extremity weakness with numbness seems more cervical myelopathy. On examination has upper and lower extremity hyperreflexia and +ve Lau sign bilaterally. Cervicogenic cephalgia. Cannot rule out left occipital neuralgia. Rule out brain mets especially with history of brain mets. Hyponatremia and currently sodium is 127 on 03/04/2024 her sodium was as low as 119 and was recently here in our facility and improved to 132 on 04/16/2024. 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 I ordered CT cervical spine since the MRI will be completed today I consulted orthopedic surgery team Patient had a recent TSH on 04/2024 which was normal. Vitamin B12 is ordered. Patient is on Plavix 75 mg daily as well as Lipitor 80 mg daily. Will defer the rest of the medical management to primary and other specialist next The plan discussed with the patient and the primary team Thank you for the consultation. Time with Patient: Greater than 30
--- NOTE | 2024-04-20 15:17 | P.HPIM ---
History of Present Illness H&P Date: 04/20/24 Chief Complaint: headache, parathesia Patient is a 79-year-old female with CAD, and for, heart failure, CVA/TIA, hyperlipidemia, hypertension presenting with headache and paresthesia. She states that she has been feeling numbness and tingling in both her upper extremities and lower extremities. She also feels numbness and tingling along with a headache on the occipital portion of her head. She states these symptoms have been going on for over a week. She states that her arms and legs feel heavy and that it has been constant and has not gone away. Patient denies any exacerbating or relieving factors. She describes her headache aching, burning pain. She was here last week undergoing treatment for congestive heart failure and hyponatremia. Patient reports of ongoing cough for the past month. She reports that there is sputum production. Denies any hemoptysis. Patient also notes of having suspicion of oral thrush likely from her inhalers. Patient reports of denies any fever, chills, syncope, trauma, nausea, vomiting, abdominal pain, slurred speech. Admits to shortness of breath. EKG independently interpreted shows Brain CT shows age-related atrophic and chronic small vessel ischemic changes without acute intracranial process seen at this time Sodium 128, potassium 4.0 chloride 93, CO2 27, BUN 20, creatinine 0.81. T98.2 F, CO 89, RR 18, BP 96/61, O2 sat 92 percent on room air ED documentation reviewed. Review of systems: Pertinent positives and negatives as discussed in HPI, a complete review of systems was performed and all other systems are negative. Physical examination: Vital signs reviewed General: non toxic, no distress, appears at stated age, normal weight Derm: no unusual rashes/lesions, warm Head: atraumatic, normocephalic, symmetric Eyes: EOMI, anicteric sclera, pupils equal round reactive to light ENT: Nose and ears atraumatic Mouth: no lip lesion, mucus membranes moist Cardiovascular: S1S2 reg, no murmur, positive dorsalis pedis pulse bilateral, no edema Lungs: CTA bilateral, no rhonchi, no rales, no accessory muscle use Abdominal: soft, nontender to palpation, no guarding Ext: muscle strength 5 out of 5 in all 4 extremities grossly, no gross muscle atrophy, bilateral brisk upper extremity reflex Neuro: CN II-XI grossly intact, no gross focal neuro deficits Psych: Alert, oriented to person, place, and time Assessment/Plan: Patient is a 79-year-old female with CAD, and for, heart failure, CVA/TIA, hyperlipidemia, hypertension presenting with headache and paresthesia. #. Headache, left occipital #. Bilateral upper and lower extremity paresthesias Rule out CVA/TIA NIHSS score Troponin <0.012 EKG independently interpreted shows Brain CT shows age-related atrophic and chronic small vessel ischemic changes without acute intracranial process seen at this time Angiography CT ordered Echocardiogram ordered Intake output TSH, A1c, B12, folate, lipid panel ordered Continue atorvastatin 80 mg p.o. daily Continue Plavix 75 mg p.o. daily Neurology consulted. Discussed with neurology to order MRI brain wo/w contrast, neck MRI wo/w contrast. CT cervical spine ordered. #. Cough #. Shortness of breath Admits to purulent sputum production WBC 9.3 ESR, CRP, procalcitonin Strep group A PCR ordered Influenza type AMB, RSV, COVID-19 Negative Continue Symbicort 80-4.5 mcg inhaler 2 puff twice daily, DuoNeb 3 mL inhalation 3 times daily as needed Chest x-ray ordered #. Hyponatremia Sodium 128 Possibly correlated to headache Order serum osmolarity, urine sodium On IV Lasix 40 mg every 12 hours NS at 20 cc/hr Follow-up BMP every 4 hours #. Oral thrush Order nystatin oral suspension 4 times daily #. CHF not in acute exacerbation Continue metoprolol 50 mg p.o. daily Continue Aldactone 12.5 mg p.o. daily Continue Farxiga 10 mg p.o. daily continue Lasix 40 mg p.o. twice daily #. History of CAD Continue atorvastatin 80 mg p.o. daily Continue Plavix 75 mg p.o. daily #. Anxiety/depression Continue BuSpar 5 mg p.o. F: NS at 20 cc/hr E: Replete electrolytes as needed N: Heart healthy diet A: Fall precaution DVT prophylaxis: SCDs The patient is admitted with an anticipated greater than 2 midnight stay for evaluation of headache and paresthesias. CODE STATUS: Full code Discussed with: Patient Anticipated discharge place: Home Attestation I have seen and examined this patient with my resident , discussed the same with the resident/MATT, and agree with the dictator's assessment and plan as written Dr. Giacomo andrew Past Medical History Past Medical History: Atrial Fibrillation, Coronary Artery Disease (CAD), Cancer, Heart Failure, CVA/TIA, Hyperlipidemia, Hypertension, Osteoarthritis (OA) Additional Past Medical History / Comment(s): skin cancer with removals, arthritis multiple joints, back and cervical pain, ?TIA A teens-shows up on scan?, PULMONARY FIBROSIS, HAD A KIDNEY FAILURE IN THE ICU. SEPSIS FOLLOWING OPEN HEART SURGERY- WAS IN HOSPITAL FOR 5 MONTHS History of Any Multi-Drug Resistant Organisms: None Reported Past Surgical History: Cardiac Valve Replacement, Cholecystectomy, Coronary Bypass/CABG, Heart Catheterization, Tonsillectomy, Tubal Ligation Additional Past Surgical History / Comment(s): 08-10-20 CABG, 2 cardiac caths without intervention, bilateral cataract removal with lens implants, skin cancer removals, cyst removed from neck, colonoscopy, cervical fusion, skin graft tip of nose Past Anesthesia/Blood Transfusion Reactions: No Reported Reaction Additional Past Anesthesia/Blood Transfusion Reaction / Comment(s): Pt has never received blood. Smoking Status: Former smoker - Past Family History Brother(s) Family Medical History: Coronary Artery Disease (CAD) Additional Family Medical History / Comment(s): "bad heart" aneurysm Sister(s) Family Medical History: Cancer Additional Family Medical History / Comment(s): breast cancer Mother Family Medical History: Cancer, Coronary Artery Disease (CAD) Additional Family Medical History / Comment(s): Lymphoma, had a pacemaker. Mother at the age of 92yrs. Father Family Medical History: Coronary Artery Disease (CAD), Myocardial Infarction ([place]) Additional Family Medical History / Comment(s): Father of a PA at the age of 63 yrs, diagnosed with CAD in his early 50s. Medications and Allergies Home Medications Medication Instructions Recorded Confirmed Type Clopidogrel [Plavix] 75 mg PO DAILY #30 tab 08/19/20 04/19/24 Rx Ibuprofen [Motrin] 800 mg PO Q8H PRN 10/26/21 04/19/24 History Ipratropium-Albuterol Nebulize 3 ml INHALATION RT-TID PRN 10/26/21 04/19/24 History [Duoneb 0.5 mg-3 mg/3 ml Soln] Baclofen 10 mg PO DAILY 04/03/23 04/19/24 History Fluticasone/Umeclidin/Vilanter 1 puff INHALATION RT-DAILY 03/03/24 04/19/24 History [Trelegy Ellipta 100-62.5-25] Rosuvastatin Calcium [Crestor] 40 mg PO DAILY 04/13/24 04/19/24 History busPIRone HCL 5 mg PO BID 04/13/24 04/19/24 History Dapagliflozin Propanediol [Farxiga] 10 mg PO DAILY 30 Days #30 tab 04/16/24 04/19/24 Rx Furosemide [Lasix] 40 mg PO BID 30 Days #60 tab 04/16/24 04/19/24 Rx Metoprolol Succinate (ER) [Toprol 50 mg PO DAILY #60 tab 04/16/24 04/19/24 Rx XL] Spironolactone [Aldactone] 12.5 mg PO DAILY 30 Days #30 tab 04/16/24 04/19/24 Rx Allergies Allergy/AdvReac Type Severity Reaction Status Date / Time adhesive Allergy blisters Verified 04/19/24 20:46 latex Allergy Rash/Hives Verified 04/19/24 20:46 Physical Exam Vitals: Vital Signs Temp Pulse Pulse Resp BP BP Pulse Ox 04/20/24 00:58 98.2 F 89 18 96/61 92 L 04/19/24 23:10 68 04/19/24 23:04 66 04/19/24 21:40 98.1 F 64 17 144/69 96 04/19/24 21:11 75 18 140/75 95 04/19/24 18:38 78 18 140/76 96 04/19/24 17:23 98 F 78 18 138/78 96 04/19/24 14:56 18 149/70 04/19/24 14:50 97.8 F 73 18 153/87 99 Intake and Output 04/19/24 04/20/24 04/20/24 22:59 06:59 14:59 Other: # Voids 2 # Bowel Movements 1 Weight 73.482 kg 71.5 kg Results CBC & Chem 7: 04/19/24 16:46 04/20/24 20:19 Labs: Abnormal Lab Results - Last 24 Hours (Table) 04/19/24 Range/Units 16:46 Sodium 128 L (137-145) mmol/L Chloride 93 L (98-107) mmol/L BUN 20 H (7-17) mg/dL Thrombosis Risk Factor Assmnt - Choose All That Apply Any of the Below Risk Factors Present?: Yes Each Factor Represents 1 point: Obesity (BMI >25) Each Risk Factor Represents 3 Points: Age 75 years or older Thrombosis Risk Factor Assessment Total Risk Factor Score: 4 Thrombosis Risk Factor Assessment Level: Moderate Risk
[2024-04-20 16:49] LABS: African American GFR (CKD) 84 (>60 ml/min/1.73 sqM); Anion Gap 12 mmol/L; Blood Urea Nitrogen 17 mg/dL (7-17); Calcium 9.2 mg/dL (8.4-10.2); Carbon Dioxide 22 mmol/L (22-30); Chloride 93 mmol/L (98-107); Glucose 118 mg/dL (74-99); Non-African American GFR(CKD) 73 (>60 ml/min/1.73 sqM); Sodium 127 mmol/L (137-145)
[2024-04-20 17:01] LABS: Potassium 4.4 mmol/L (3.5-5.1)
--- NOTE | 2024-04-20 17:14 | XR ---
EXAMINATION TYPE: XR chest 1V portable DATE OF EXAM: 04/20/2024 COMPARISON: 04/16/2024 INDICATION: Productive cough TECHNIQUE: Single frontal view of the chest is obtained. FINDINGS: The heart size is enlarged. The pulmonary vasculature is normal. This has improved from comparison. Mild diffuse increased lung markings are present, improved from comparison. Resolving pulmonary edema could be considered. Atypical pneumonia should be considered. IMPRESSION: 1. Improving mild bilateral lung infiltrates. Correlate for resolving pulmonary edema or atypical pne [place] [facility], Workstation: [email or web address], 04/20/2024 5:11 PM
--- NOTE | 2024-04-20 17:22 | CT ---
EXAMINATION TYPE: CT cervical spine wo con DATE OF EXAM: 04/20/2024 COMPARISON: 09/10/2020 HISTORY: Neck pain, bilateral leg and hand weakness. CT DLP: 273.1 mGycm CONTRAST: None CT of the cervical spine is performed in the axial plane at 2 mm thick sections. Reconstructed image s in the coronal, and sagittal plane are reviewed on the computer. Postsurgical changes from an anterior cervical fusion are evident. This extends from C3 to C7 Vertebral body alignment is normal. C2-3 and C7-T1 disc space has mild narrowing. Remaining disc spaces and disc spacers anterior fusion. Posterior endplate spurring is present at C3-4 no spinal canal stenosis present. Vertebral body heights appear preserved Bilateral foraminal narrowing is present at C4-5 through C6-7 IMPRESSION: 1. Postsurgical changes from anterior cervical fusion C3-C7. 2. Foraminal narrowing at C4-5 and C6-7 [facility], Workstation: [facility], 04/20/2024 5:19 PM
[2024-04-20] MEDS: FUROSEMIDE 10 MG/ML 4 ML VIAL IV SCH (20:52)
[2024-04-20] MEDS: guaiFENesin-DM 100-10MG/5ML 10 ML CUP PO ONE (20:52)
[2024-04-20 20:59] LABS: African American GFR (CKD) 76 (>60 ml/min/1.73 sqM); Anion Gap 8 mmol/L; Blood Urea Nitrogen 18 mg/dL (7-17); Calcium 8.9 mg/dL (8.4-10.2); Carbon Dioxide 25 mmol/L (22-30); Chloride 94 mmol/L (98-107); Glucose 107 mg/dL (74-99); Non-African American GFR(CKD) 66 (>60 ml/min/1.73 sqM); Potassium 3.6 mmol/L (3.5-5.1); Sodium 127 mmol/L (137-145)
--- NOTE | 2024-04-20 21:15 | P.CNOR ---
History of Present Illness - HPI Consult date: 04/20/24 (Delayed charting. Pt s/e at 2:50 PM) Consult reason: neck pain History of present illness: 79 yo female presented for paresthesias in her UE as well as "heaviness" in her arms. She states over the past two days it has gotten much worse to the point of her dropping things and not being able to hold her fork. She states she can walk still but that her arms feel heavy and like she cannot control them. She states she had neck surgery about 6-7 years ago with a cage. She states after that surgery that she continued to have UE "prickly" feeling but that over the past week it has gotten much worse. She denies any falls. She states no facial numbness/tingling. She states no bowel or bladder issues. She states no perineal numbness/tingling. 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 Review of Systems 16 pt ROS completed and as stated in HPI. All other systems reviewed negative. Constitutional: Reports as per HPI Past Medical History Past Medical History: Atrial Fibrillation, Coronary Artery Disease (CAD), Cancer, Heart Failure, CVA/TIA, Hyperlipidemia, Hypertension, Osteoarthritis (OA) Additional Past Medical History / Comment(s): skin cancer with removals, arthritis multiple joints, back and cervical pain, ?TIA A teens-shows up on scan?, PULMONARY FIBROSIS, HAD A KIDNEY FAILURE IN THE ICU. SEPSIS FOLLOWING OPEN HEART SURGERY- WAS IN HOSPITAL FOR 5 MONTHS History of Any Multi-Drug Resistant Organisms: None Reported Past Surgical History: Cardiac Valve Replacement, Cholecystectomy, Coronary Bypass/CABG, Heart Catheterization, Tonsillectomy, Tubal Ligation Additional Past Surgical History / Comment(s): 2--21 CABG, 2 cardiac caths without intervention, bilateral cataract removal with lens implants, skin cancer removals, cyst removed from neck, colonoscopy, cervical fusion, skin graft tip of nose Past Anesthesia/Blood Transfusion Reactions: No Reported Reaction Additional Past Anesthesia/Blood Transfusion Reaction / Comm: Pt has never received blood. Smoking Status: Former smoker - Past Family History Brother(s) Family Medical History: Coronary Artery Disease (CAD) Additional Family Medical History / Comment(s): "bad heart" aneurysm Sister(s) Family Medical History: Cancer Additional Family Medical History / Comment(s): breast cancer Mother Family Medical History: Cancer, Coronary Artery Disease (CAD) Additional Family Medical History / Comment(s): Lymphoma, had a pacemaker. Mother at the age of 92yrs. Father Family Medical History: Coronary Artery Disease (CAD), Myocardial Infarction ([place]) Additional Family Medical History / Comment(s): Father of a [place] at the age of 63 yrs, diagnosed with CAD in his early 50s. Medications and Allergies Home Medications Medication Instructions Recorded Confirmed Type Clopidogrel [Plavix] 75 mg PO DAILY #30 tab 08/19/20 04/19/24 Rx Ibuprofen [Motrin] 800 mg PO Q8H PRN 10/26/21 04/19/24 History Ipratropium-Albuterol Nebulize 3 ml INHALATION RT-TID PRN 10/26/21 04/19/24 History [Duoneb 0.5 mg-3 mg/3 ml Soln] Baclofen 10 mg PO DAILY 04/03/23 04/19/24 History Fluticasone/Umeclidin/Vilanter 1 puff INHALATION RT-DAILY 03/03/24 04/19/24 History [Trelegy Ellipta 100-62.5-25] Rosuvastatin Calcium [Crestor] 40 mg PO DAILY 04/13/24 04/19/24 History busPIRone HCL 5 mg PO BID 04/13/24 04/19/24 History Dapagliflozin Propanediol [Farxiga] 10 mg PO DAILY 30 Days #30 tab 04/16/24 04/19/24 Rx Furosemide [Lasix] 40 mg PO BID 30 Days #60 tab 04/16/24 04/19/24 Rx Metoprolol Succinate (ER) [Toprol 50 mg PO DAILY #60 tab 04/16/24 04/19/24 Rx XL] Spironolactone [Aldactone] 12.5 mg PO DAILY 30 Days #30 tab 04/16/24 04/19/24 Rx Allergies Allergy/AdvReac Type Severity Reaction Status Date / Time adhesive Allergy blisters Verified 04/19/24 20:46 latex Allergy Rash/Hives Verified 04/19/24 20:46 Physical Examination Osteopathic Statement: *. No significant issues noted on an osteopathic structural exam other than those noted in the History and Physical/Consult. +Lau's b/l Hyperreflexic BUE and LE Clonus b/l LE 15 beats No babinski b/l Diadiokinesis not intact b/l UE Dexterity not intact UE b/l - Cervical Spine Neck pain: gradual onset, getting worse Pain modifiers: with flexion, with extension, throughout ROM Nerve symptoms: tingling in the arms: bilateral, pain in the arms: bilateral, weakness in the arms: bilateral, difficulty with manipulative tasks: bilateral, numbness: bilateral Previous treatment: traction: not effective, previous hospitalization: somewhat effective, heat: not effective, ice: not effective, NSAIDs: not effective, pain medication: not effective, muscle relaxant: not effective, nerve block: not effective, corticosteroid injection: not effective, surgery: somewhat effective, brace: somewhat effective, exercise: somewhat effective, physical therapy: somewhat effective, chiropractic: somewhat effective, accupuncture: somewhat effective, biofeedback: somewhat effective, TENS unit: somewhat effective, psychotherapy: somewhat effective, other: somewhat effective Tenderness with palpation: spinous process, transverse process (left), transverse process (right), trapezius muscle (left), trapezius muscle (right), scalene muscle (left), paracervical muscle (left), paracervical muscle (right), occipital protuberance Crepitus with motion: Yes Cranial nerve abnormalities: optic nerve II: no, oculomotor III: no, trochlear IV: no, trigeminal V: no, destibulocochlear VIII: no, glossopharyngeal IX: no, vegus X: no, accessory XI: no, hypoglossal XII: no - C Spine: dermatomal strength & reflexes bilateral Shoulder strength: flexion: 3/5 Shoulder strength: extension: 3/5 Shoulder strength: abduction: 3/5 Shoulder strength: adduction: 3/5 Shoulder strength: internal rotation: 3/5 Shoulder strength: external rotation: 3/5 Wrist strength: flexion: 3/5 Wrist strength: extension: 3/5 Wrist strength: pronation: 3/5 Wrist strength: supination: 3/5 Wrist strength: radial deviation: 3/5 Wrist strength: ulnar deviation: 3/5 Strength: global marketing intern: 3/5 Reflexes: biceps: grade 3, brachial radialis: grade 3, triceps: grade [address] of cervical spine reviewed. Demonstrates post surgical changes crom C3-[address] Reasonable fusion noted. Hardware in good position without evidence of fracture or migration. There is ASD noted at C2-3 with collapse of this level. There is collapse and starting of invagination of the C2 Dens with erosion of the C1-2 joints b/l as well as the C1-2 articulation. There is ASD at the C7/T1 level as well with grade I listhesis noted. There is severe central stenosis overall as well as foraminal stenosis at C5-6 and C4-5. Severe facet arthrosis noted as well. No fractures noted at this time. MRI is pending given her neurological changes and deficit. - Labs Labs: Abnormal Lab Results - Last 24 Hours (Table) 04/20/24 04/20/24 04/20/24 Range/Units 11:23 16:12 20:19 Sodium 127 L 127 L 127 L (137-145) mmol/L Chloride 92 L 93 L 94 L (98-107) mmol/L BUN 18 H (7-17) mg/dL Glucose 118 H 107 H (74-99) mg/dL H & H 04/19/24 Range/Units 16:46 Hgb 14.3 (11.4-16.0) gm/dL Hct 40.9 (34.0-46.0) % Result Diagrams: 04/19/24 16:46 04/20/24 20:19 Assessment and Plan (1) Cervical myelopathy with cervical radiculopathy Current Visit: Yes Status: Acute Code(s): G95.9 - DISEASE OF SPINAL CORD, UNSPECIFIED; M54.12 - RADICULOPATHY, CERVICAL REGION SNOMED Code(s): 779529094 (2) Cervical spondylosis with myelopathy and radiculopathy Current Visit: Yes Status: Acute Code(s): M47.12 - OTHER SPONDYLOSIS WITH MYELOPATHY, CERVICAL REGION; M47.22 - OTHER SPONDYLOSIS WITH RADICULOPATHY, CERVICAL REGION SNOMED Code(s): 581519863 (3) Upper extremity weakness Current Visit: Yes Status: Acute Code(s): R29.898 - OTH SYMPTOMS AND SIGNS INVOLVING THE MUSCULOSKELETAL SYSTEM SNOMED Code(s): 221472178 (4) Gait disturbance Current Visit: Yes Status: Acute Code(s): R26.9 - UNSPECIFIED ABNORMALITIES OF GAIT AND MOBILITY SNOMED Code(s): 55251151 (5) Fine motor impairment Current Visit: Yes Status: Acute Code(s): R29.818 - OTHER SYMPTOMS AND SIGNS INVOLVING THE NERVOUS SYSTEM; R29.898 - OTH SYMPTOMS AND SIGNS INVOLVING THE MUSCULOSKELETAL SYSTEM SNOMED Code(s): 236476577 Plan: I have discussed with the patient her clinical signs and symptoms. At this time we are awaiting an MRI to evaluate her cervical spinal cord and her myelopathy. I suspect that the stenosis seen on CT is contributing to some form of myeloma lacia of the spinal cord due to her sx of hyperreflexia as well as+hofmmans and fine motor disruption. We have discussed treatment options. The patient states she desires to be fixed if possible. We discussed non-surgical and surgical options as well as risks and benefits and potential outcomes she understands. We will await MRI for decision Recommend Decadron 4q6 for her neurological sx recommend PT/OT Surgical recs once MRI is completed.
[2024-04-21 10:01] LABS: Basophils # (A) 0.09 X 10*3/uL (0.00-0.10); Basophils % (A) 0.9 %; HCT 40.1 % (37.2-46.3); HGB 13.7 g/dL (12.0-15.0); Lymphocytes # (A) 2.57 X 10*3/uL (0.90-5.00); Lymphocytes % (A) 25.4 %; MCHC 34.2 g/dL (32.0-37.0); Mean Platelet Volume 10.2 FL (9.5-12.2); Monocytes # (A) 1.15 X 10*3/uL (0.20-1.00); Monocytes % (A) 11.4 %; NRBC Per 100 WBC 0 X 10*3/uL (0.00-0.01); Neutrophils # (A) 5.98 X 10*3/uL (1.80-7.70); Neutrophils % (A) 58.9 %; Platelet Count 309 X 10*3/uL (140-440); RBC 4.72 X 10*6/uL (4.10-5.20); RDW 13.2 % (11.5-14.5); WBC 10.13 X 10*3/uL (4.50-10.00)
[2024-04-21 10:23] LABS: Blood Urea Nitrogen 17.1 mg/dL (9.0-27.0); Carbon Dioxide 24.4 mmol/L (21.6-31.8); Chloride 90 mmol/L (96-109); Chol/HDL Ratio 2.37 Ratio; Glucose 96 mg/dL (70-110); LDL Cholesterol,Calculated 57.5 mg/dL (0.0-131.0); Magnesium 2.1 mg/dL (1.5-2.4); Potassium 3.5 mmol/L (3.5-5.5); Sodium 129 mmol/L (135-145); VLDL Calculation 13.52 mg/dL (5.00-40.00)
[2024-04-21] MEDS ORDERED: DEXAMETHASONE SOD PHOSPHATE 4 MG/ML 1 ML VIAL IVP PRN (12:53)
--- NOTE | 2024-04-21 12:56 | P.PN ---
Subjective Progress Note Date: 04/21/24 Patient is a 79-year-old female with CAD, and for, heart failure, CVA/TIA, hyperlipidemia, hypertension presenting with headache and paresthesia. She states that she has been feeling numbness and tingling in both her upper extremities and lower extremities. She also feels numbness and tingling along with a headache on the occipital portion of her head. She states these symptoms have been going on for over a week. She states that her arms and legs feel heavy and that it has been constant and has not gone away. Patient denies any exacerbating or relieving factors. She describes her headache aching, burning pain. She was here last week undergoing treatment for congestive heart failure and hyponatremia. Patient reports of ongoing cough for the past month. She reports that there is sputum production. Denies any hemoptysis. Patient also notes of having suspicion of oral thrush likely from her inhalers. Patient reports of denies any fever, chills, syncope, trauma, nausea, vomiting, abdom inal pain, slurred speech. Admits to shortness of breath. EKG independently interpreted shows Brain CT shows age-related atrophic and chronic small vessel ischemic changes without acute intracranial process seen at this time Sodium 128, potassium 4.0 chloride 93, CO2 27, BUN 20, creatinine 0.81. T98.2 F, IL 89, RR 18, BP 96/61, O2 sat 92 percent on room air ED documentation reviewed. 04/21. Patient seen and examined. States sore throat has improved. Still complaining of headache. Blood work done showed WBC 10.13, hemoglobin 713.7, sodium 129, potassium 3.5, BUN 17.1, creatinine 0.9 REVIEW OF SYSTEMS: CONSTITUTIONAL: No fever, no malaise,. CARDIOVASCULAR: No chest pain, no palpitations, no syncope. PULMONARY: No shortness of breath, no cough, GASTROINTESTINAL: No diarrhea, no nausea, no vomiting, no abdominal pain. NEUROLOGICAL: As mentioned above PHYSICAL EXAMINATION: GENERAL: The patient is alert and oriented x3, ill looking, cervical collar in place HEENT: Pupils are round and equally reacting to light. EOMI. No scleral icterus. No conjunctival pallor. Normocephalic, atraumatic. No pharyngeal erythema. No thyromegaly. CARDIOVASCULAR: S1 and S2 present. No murmurs, rubs, or gallops. PULMONARY: Chest is clear to auscultation, no wheezing or crackles. ABDOMEN: Soft, nontender, nondistended, normoactive bowel sounds. No palpable organomegaly. MUSCULOSKELETAL: No joint swelling or deformity. EXTREMITIES: No cyanosis, clubbing, or pedal edema. NEUROLOGICAL: Gross neurological examination did not reveal any focal deficits. SKIN: No rashes. Assessment and plan #. Headache, left occipital #. Bilateral upper and lower extremity paresthesias Monitor vital signs MRI brain ordered MRI cervical spine ordered Orthopedic spine evaluated the patient, started patient on Decadron, awaiting MRI cervical spine results. #. Cough #. Shortness of breath CRP was normal, Pro-Marc was normal Influenza type AMB, RSV, COVID-19 Negative Continue Symbicort 80-4.5 mcg inhaler 2 puff twice daily, DuoNeb 3 mL in halation 3 times daily as needed Ordered Mucinex #. Hyponatremia Monitor lites Decrease IV Lasix to 20 mg twice a day #. Oral thrush Order nystatin oral suspension 4 times daily #. CHF not in acute exacerbation Continue metoprolol 50 mg p.o. daily Continue Aldactone 12.5 mg p.o. daily Continue Farxiga 10 mg p.o. daily. Continue Lasix 20 mg twice daily #. History of CAD Continue atorvastatin 80 mg p.o. daily Continue Plavix 75 mg p.o. daily #. Anxiety/depression Continue BuSpar 5 mg p.o. Labs and medication were reviewed.. Continue same treatment. Continue with symptomatic treatment. Resume home medication. Monitor labs and vitals. DVT and GI prophylaxis. Further recommendations as per clinical course of the patient Dictation was produced using [employer] dictation software. please excuse any grammatical, word or spelling errors. Objective - Vital Signs Vital signs: Vital Signs Temp 97.9 F 04/21/24 06:46 Pulse 72 04/21/24 11:50 Resp 17 04/21/24 06:46 BP 104/66 04/21/24 06:46 Pulse Ox 93 L 04/21/24 00:38 FiO2 Intake & Output 04/20/24 04/21/24 04/21/24 18:59 06:59 18:59 Intake Total 530 240 Output Total 300 800 Balance 530 -300 -560 Weight 70 kg Intake: Oral 530 Other 240 Output: Urine 300 800 Other: Voiding Method Toilet Diaper # Voids 2 - Labs CBC & Chem 7: 04/21/24 04:33 04/21/24 04:33 Labs: Abnormal Lab Results - Last 24 Hours (Table) 04/20/24 04/20/24 04/20/24 Range/Units 11:23 11:30 16:12 WBC (4.50-10.00) X 10*3/uL Monocytes # (0.20-1.00) X 10*3/uL Sodium 127 L (137-145) mmol/L Chloride 93 L (98-107) mmol/L Anion Gap (4.00-12.00) mmol/L BUN (7-17) mg/dL Glucose 118 H (74-99) mg/dL Osmolality 271 L (275-295) mOsm/kg Urine Osmolality 298 L (400-1100) mOsm/kg 04/20/24 04/21/24 04/21/24 Range/Units 20:19 04:33 04:33 WBC 10.13 H (4.50-10.00) X 10*3/uL Monocytes # 1.15 H (0.20-1.00) X 10*3/uL Sodium 127 L 129 L (137-145) mmol/L Chloride 94 L 90 L (98-107) mmol/L Anion Gap 14.60 H (4.00-12.00) mmol/L BUN 18 H (7-17) mg/dL Glucose 107 H (74-99) mg/dL Osmolality (275-295) mOsm/kg Urine Osmolality (400-1100) mOsm/kg
--- NOTE | 2024-04-21 13:29 | P.PN ---
Subjective Progress Note Date: 04/21/24 I am following-up with patient and feels about the same. Denies of any new neurological issues. Objective - Vital Signs Vital signs: Vital Signs Temp 97.9 F 04/21/24 06:46 Pulse 72 04/21/24 11:50 Resp 17 04/21/24 06:46 BP 104/66 04/21/24 06:46 Pulse Ox 93 L 04/21/24 00:38 FiO2 Intake & Output 04/20/24 04/21/24 04/21/24 18:59 06:59 18:59 Intake Total 530 240 Output Total 300 800 Balance 530 -300 -560 Weight 70 kg Intake: Oral 530 Other 240 Output: Urine 300 800 Other: Voiding Method Toilet Diaper # Voids 2 - Exam GENERAL: The patient is sitting in a recliner chair and is not in acute distress. HENT: Has pain over the left occipital region to touch. NEUROLOGICAL: Higher mental function: The patient is awake, alert, oriented to self, place and time. Patient is following commands. No aphasia and no neglect. Cranial nerves: The pupils are round, equal and reactive to light and accommodation. Visual lópez are full to confrontation throughout. Extraocular movement is intact no nystagmus is noted. Facial sensation is normal to touch throughout. The facial strength is normal throughout. Hearing is normal bilaterally to hand rub. Tongue is midline and moved [id number] without any difficulty. No dysarthria is noted. Shoulder shrug is normal bilaterally. Motor: The strength is 5 over 5 throughout. Normal tone and bulk. Cerebellum: Normal finger to nose bilaterally. Sensation: Sensation is normal to touch throughout. Reflexes (right/left): Biceps 3/2; triceps 3/3; brachioradialis 3/3; patellar 3/2; ankles 2/2. +ve lau sign bilaterally. Plantars appear upgoing at baseline bilaterally. Some of the workup during this hospital visit consisted of: CBC with differential is unremarkable Sodium is 128 and the repeated is 127. On 03/04/2024 was as low as 119. CRP is less than 0.5. Calcium, magnesium, creatinine is within normal limits TSH: 2.45 B12: 587 CT of the head is reported as age-related atrophy and chronic small vessel ischemic change without acute intracranial process seen at this time. I personally reviewed the CT and agree with that. CT cervical: Surgical changes from the anterior cervical fusion C3-C7. Foraminal narrowing C4-C5 and C6-C7 - Labs CBC & Chem 7: 04/21/24 04:33 04/21/24 04:33 Labs: Abnormal Lab Results - Last 24 Hours (Table) 04/20/24 04/20/24 04/20/24 Range/Units 11:23 11:30 16:12 WBC (4.50-10.00) X 10*3/uL Monocytes # (0.20-1.00) X 10*3/uL Sodium 127 L (137-145) mmol/L Chloride 93 L (98-107) mmol/L Anion Gap (4.00-12.00) mmol/L BUN (7-17) mg/dL Glucose 118 H (74-99) mg/dL Osmolality 271 L (275-295) mOsm/kg Urine Osmolality 298 L (400-1100) mOsm/kg 04/20/24 04/21/24 04/21/24 Range/Units 20:19 04:33 04:33 WBC 10.13 H (4.50-10.00) X 10*3/uL Monocytes # 1.15 H (0.20-1.00) X 10*3/uL Sodium 127 L 129 L (137-145) mmol/L Chloride 94 L 90 L (98-107) mmol/L Anion Gap 14.60 H (4.00-12.00) mmol/L BUN 18 H (7-17) mg/dL Glucose 107 H (74-99) mg/dL Osmolality (275-295) mOsm/kg Urine Osmolality (400-1100) mOsm/kg Assessment and Plan Assessment: This is a 79-year-old woman with multiple medical issues including skin cancer who presents to the emergency department because of episode of bilateral upper and lower extremity weakness and she fell yesterday felt like Jell-O as well as complaining of left neck pain and less of occipital pain. She has history of surgery in which she had a cage placed about 5 years ago. She was recently discharged with hyponatremia and congestive heart failure and she stated that she was discharged about 2 days ago. Transient episode of bilateral upper lower extremity weakness with numbness seems more cervical myelopathy. On examination has upper and lower extremity hyperreflexia and +ve Lau sign bilaterally. Cervicogenic cephalgia. Cannot rule out left occipital neuralgia. Rule out brain mets especially with history of brain mets. Hyponatremia and currently sodium is 127 on 03/04/2024 her sodium was as low as 119 and was recently here in our facility and improved to 132 on 04/16/2024. 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 Orthopedic surgery team consulted. He suspects patient has stenosis seen on the CT contributing to some myelomalacia. Patient is on Plavix 75 mg daily as well as Lipitor 80 mg daily. Will defer the rest of the medical management to primary and other specialist next The plan discussed with the patient and the primary team Dr. Simmons will resume neurology service tomorrow A.M. Time with Patient: Less than 30
--- NOTE | 2024-04-21 14:52 | P.PN ---
Subjective Progress Note Date: 04/21/24 Principal diagnosis: Neck pain; bilateral upper extremity weakness; bilateral upper extremity radiculopathy Patient was seen at bedside this morning sitting up in chair. Patient mentions she is still having neck pain and numbness and tingling in the upper extremities at this time. Patient denies any other changes since yesterday. Patient is awaiting MRI of cervical spine to be completed which is scheduled for tomorrow. Patient denies any other issues at this time. Objective - Vital Signs Vital signs: Vital Signs Temp 97.9 F 04/21/24 06:46 Pulse 72 04/21/24 11:50 Resp 17 04/21/24 06:46 BP 104/66 04/21/24 06:46 Pulse Ox 93 L 04/21/24 00:38 FiO2 Intake & Output 04/20/24 04/21/24 04/21/24 18:59 06:59 18:59 Intake Total 530 240 Output Total 300 800 Balance 530 -300 -560 Weight 70 kg Intake: Oral 530 Other 240 Output: Urine 300 800 Other: Voiding Method Toilet Diaper # Voids 2 - Exam Negative for any open fractures, ecchymosis/erythema/open wounds. There is generalized tenderness to palpation diffusely throughout the cervical spine on exam. Patient does have limited range of motion the bilateral upper extremities secondary to referred stiffness and pain to the cervical spine. 3/5 motor strength in all major motor groups in bilateral upper extremities. +Lau's b/l Hyperreflexic BUE and LE Clonus b/l LE 15 beats No babinski b/l Diadiokinesis not intact b/l UE Dexterity not intact UE b/l - Labs CBC & Chem 7: 04/21/24 04:33 04/21/24 04:33 Labs: Abnormal Lab Results - Last 24 Hours (Table) 04/20/24 04/20/24 04/20/24 Range/Units 11:23 11:30 16:12 WBC (4.50-10.00) X 10*3/uL Monocytes # (0.20-1.00) X 10*3/uL Sodium 127 L (137-145) mmol/L Chloride 93 L (98-107) mmol/L Anion Gap (4.00-12.00) mmol/L BUN (7-17) mg/dL Glucose 118 H (74-99) mg/dL Osmolality 271 L (275-295) mOsm/kg Urine Osmolality 298 L (400-1100) mOsm/kg 04/20/24 04/21/24 04/21/24 Range/Units 20:19 04:33 04:33 WBC 10.13 H (4.50-10.00) X 10*3/uL Monocytes # 1.15 H (0.20-1.00) X 10*3/uL Sodium 127 L 129 L (137-145) mmol/L Chloride 94 L 90 L (98-107) mmol/L Anion Gap 14.60 H (4.00-12.00) mmol/L BUN 18 H (7-17) mg/dL Glucose 107 H (74-99) mg/dL Osmolality (275-295) mOsm/kg Urine Osmolality (400-1100) mOsm/kg Assessment and Plan Assessment: 1. history of C3-C7 ACDF; cervical central canal and neuroforaminal stenosis; fa cet arthropathy; cervical stenosis; bilateral upper extremity radiculopathy Plan: 1. history of C3-C7 ACDF; cervical central canal and neuroforaminal stenosis; facet arthropathy; cervical stenosis; bilateral upper extremity radiculopathy - patient does appear to display a myelopathic symptoms on exam. MRI of the lumbar spine has been ordered and is scheduled for tomorrow. Patient mentions she would like to move forward with surgery if it is indicated. We did discuss conservative versus surgical management options as well as risk and benefits of the procedure and patient understands. Recommend Decadron 4 every 6h. PT OT recommendations. ANGEL hanson. More recommendations once MRI is completed. Time with Patient: Less than 30
[2024-04-21] MEDS: guaiFENesin-DM 100-10MG/5ML 10 ML CUP PO PRN (15:55)
[2024-04-21] MEDS: guaiFENesin 600 MG TABLET.ER PO SCH (21:23)
[2024-04-21] MEDS: FUROSEMIDE 10 MG/ML 2 ML VIAL IV SCH (21:24)
--- NOTE | 2024-04-22 09:47 | P.PN ---
Subjective Progress Note Date: 04/22/24 Principal diagnosis: Neck pain; bilateral upper extremity weakness; bilateral upper extremity radiculopathy Patient was seen at bedside this morning sitting up in chair. Patient mentions she is still having neck pain and numbness and tingling in the upper extremities at this time. Patient denies any other changes since yesterday. Patient is awaiting MRI of cervical spine to be completed which is scheduled for this afternoon. Patient denies any other issues at this time. Objective - Vital Signs Vital signs: Vital Signs Temp 97.9 F 04/22/24 08:00 Pulse 75 04/22/24 08:14 Resp 18 04/22/24 08:14 BP 120/67 04/22/24 08:00 Pulse Ox 92 L 04/22/24 08:00 FiO2 Intake & Output 04/21/24 04/22/24 04/22/24 18:59 06:59 18:59 Intake Total 1500 Output Total 1375 Balance 125 Weight 72.5 kg Intake: Oral 1260 Other 240 Output: Urine 1375 Other: Voiding Method Toilet Diaper # Voids 4 - Exam Negative for any open fractures, ecchymosis/erythema/open wounds. There is generalized tenderness to palpation diffusely throughout the cervical spine on exam. Patient does have limited range of motion the bilateral upper extremities secondary to referred stiffness and pain to the cervical spine. 3/5 motor strength in all major motor groups in bilateral upper extremities. +Lau's b/l Hyperreflexic BUE and LE Clonus b/l LE 15 beats No babinski b/l Diadiokinesis not intact b/l UE Dexterity not intact UE b/l - Labs CBC & Chem 7: 04/21/24 04:33 04/21/24 04:33 Labs: Abnormal Lab Results - Last 24 Hours (Table) 04/21/24 04/21/24 Range/Units 04:33 04:33 WBC 10.13 H (4.50-10.00) X 10*3/uL Monocytes # 1.15 H (0.20-1.00) X 10*3/uL Sodium 129 L (135-145) mmol/L Chloride 90 L (96-109) mmol/L Anion Gap 14.60 H (4.00-12.00) mmol/L Assessment and Plan Assessment: 1. history of C3-C7 ACDF; cervical central canal and neuroforaminal stenosis; facet arthropathy; cervical stenosis; bilateral upper extremity radiculopathy Plan: 1. history of C3-C7 ACDF; cervical central canal and neuroforaminal stenosis; facet arthropathy; cervical stenosis; bilateral upper extremity radiculopathy - patient does appear to display myelopathic symptoms on exam. MRI of the lumbar spine has been ordered and is scheduled for tomorrow. Patient mentions she would like to move forward with surgery if it is indicated. We did discuss conservative versus surgical management options as well as risk and benefits of the procedure and patient understands. Recommend Decadron 4 every 6h. PT OT recommendations. ANGEL hanson. Cardiology consulted for clearance. recommend more recommendations once MRI is completed. Time with Patient: Less than 30
--- NOTE | 2024-04-22 12:15 | P.CRDCN ---
History of Present Illness Consult date: 04/22/24 Reason for Consult (text): Surgical clearance History of present illness: This is a 79-year-old female patient of Dr. Sloan with past medical history of paroxysmal atrial fibrillation, coronary artery disease status post coronary artery bypass grafting, moderate aortic stenosis, mild to first-degree AV block. Patient had a recent hospitalization in March at which time she was treated for severe hyponatremia secondary to hydrochlorothiazide for which she was on for lower extremity edema. We have been asked to evaluate the patient for surgical clearance prior to cervical spine surgery. Patient states that she has been having trouble for some time with the initial admission for low sodium. She states that at the time she was feeling funny in her legs and arms weighed a ton. She also had head and neck pain at the time with no known injury or fall. She was lightheaded and weak all over. She was stabilized and discharged but returned on April 19 due to bilateral leg and arm numbness and she continued to have head and neck pain. She states she has a history of neck surgery in the past. In general she states she has not been feeling well for couple weeks. She does have a cough. No chest pain. Patient is on Plavix which is currently on hold starting today. Patient is not normally very active as she has trouble walking due to osteoarthritis and also to a lesser degree pulmonary fibrosis. Blood pressure 120/67, heart rate 75, pulse ox 92% on room air. EKG: Sinus rhythm with occasional PVC Chest x-ray: Improving mild bilateral lung infiltrates. Correlate for resolving pulmonary edema or atypical pneumonia. Laboratory studies: WBC 10, hemoglobin 13.7, platelet count 309. Sodium 129, potassium 3.5, BUN 17 creatinine 0.9. Magnesium 2.1. A1c 5.8. Triglycerides 67, cholesterol 123, LDL 57, HDL 52. TSH 2.4. Influenza A, influenza B, RSV, COVID-19 and group A strep not detected. Troponin negative x 1. Home cardiac medications: Plavix 75 mg daily, Farxiga 10 mg daily, Lasix 40 mg twice daily, Toprol-XL 50 mg daily, rosuvastatin 40 mg daily, Aldactone 12.5 mg daily. Cardiac catheterization history 2007, normal EF, 20% distal LM, mild triple- vessel disease. Echocardiogram 02/29/2024 reveals EF 55 to 60% and moderate AAS. Holter monitor10/2023 revealed sinus rhythm, heart rate 5397 with average 77 bpm, frequent PACs 67%, greater than 3900 episodes of A-fib/irregular A. tach, 3-second pauses longest 3.1-second. Lexiscan stress test 05/04/2020 revealed no evidence of reversible ischemia. Review Of Systems: At the time of my exam: CONSTITUTIONAL: Denies fever or chills. HEENT: Denies blurred vision, vision changes, or eye pain. Denies hemoptysis CARDIOVASCULAR: Denies chest pain. Denies orthopnea. Denies PND. Denies palpitations RESPIRATORY: Denies shortness of breath. Reports cough. GASTROINTESTINAL: Denies abdominal pain. Denies nausea or vomiting. HEMATOLOGIC: Denies bleeding disorders. GENITOURINARY: Denies any blood in urine. SKIN: Denies puritis. Denies rash. Physical examination: Gen: This is a 79-year-old female in no acute distress VS: reviewed HEENT: Head is atraumatic, normocephalic. Pupils equal, round. Sclerae is anicteric. NECK: Supple. No JVD. LUNGS: Clear to auscultation. No wheezes or rhonchi. No intercostal retractions. HEART: Regular rate and rhythm. Systolic murmur. ABDOMEN: Soft No tenderness. EXTREMITIES: No pedal edema. No calf tenderness. NEUROLOGICAL: Patient is awake, alert and oriented x3. Assessment: Cervical spine stenosis with plan for surgical intervention, history of previous C3-C7 ACDF Hyponatremia Paroxysmal atrial fibrillation Coronary artery disease with previous coronary artery bypass grafting Moderate aortic stenosis Mild first-degree AV block Plan: Continue patient's home cardiac medications with the exception of Plavix which is on hold Continue gentle diuresing Patient is at high risk for complications during the perioperative period due to multiple comorbidities including pulmonary fibrosis, hyponatremia, aortic valve stenosis, atrial fibrillation. The benefits of surgery outweigh the risk of complications, thus, patient is cleared for surgical intervention. Further recommendations to follow based upon clinical course Thank you kindly for this consultation. Nurse practitioner note has been reviewed, I agree with documented findings and plan of care. Patient was seen and examined. Past Medical History Past Medical History: Atrial Fibrillation, Coronary Artery Disease (CAD), Cancer, Heart Failure, CVA/TIA, Hyperlipidemia, Hypertension, Osteoarthritis (O A) Additional Past Medical History / Comment(s): skin cancer with removals, arthritis multiple joints, back and cervical pain, ?TIA A teens-shows up on scan?, PULMONARY FIBROSIS, HAD A KIDNEY FAILURE IN THE ICU. SEPSIS FOLLOWING OPEN HEART SURGERY- WAS IN HOSPITAL FOR 5 MONTHS History of Any Multi-Drug Resistant Organisms: None Reported Past Surgical History: Cardiac Valve Replacement, Cholecystectomy, Coronary Bypass/CABG, Heart Catheterization, Tonsillectomy, Tubal Ligation Additional Past Surgical History / Comment(s): 2 CABG, 2 cardiac caths without intervention, bilateral cataract removal with lens implants, skin cancer removals, cyst removed from neck, colonoscopy, cervical fusion, skin graft tip of nose Past Anesthesia/Blood Transfusion Reactions: No Reported Reaction Additional Past Anesthesia/Blood Transfusion Reaction / Comment(s): Pt has never received blood. Smoking Status: Former smoker - Past Family History Brother(s) Family Medical History: Coronary Artery Disease (CAD) Additional Family Medical History / Comment(s): "bad heart" aneurysm Sister(s) Family Medical History: Cancer Additional Family Medical History / Comment(s): breast cancer Mother Family Medical History: Cancer, Coronary Artery Disease (CAD) Additional Family Medical History / Comment(s): Lymphoma, had a pacemaker. Mother at the age of 92yrs. Father Family Medical History: Coronary Artery Disease (CAD), Myocardial Infarction (ID) Additional Family Medical History / Comment(s): Father of a ID at the age of 63 yrs, diagnosed with CAD in his early 50s. Medications and Allergies Home Medications Medication Instructions Recorded Confirmed Type Clopidogrel [Plavix] 75 mg PO DAILY #30 tab 08/19/20 04/19/24 Rx Ibuprofen [Motrin] 800 mg PO Q8H PRN 10/26/21 04/19/24 History Ipratropium-Albuterol Nebulize 3 ml INHALATION RT-TID PRN 10/26/21 04/19/24 History [Duoneb 0.5 mg-3 mg/3 ml Soln] Baclofen 10 mg PO DAILY 04/03/23 04/19/24 History Fluticasone/Umeclidin/Vilanter 1 puff INHALATION RT-DAILY 03/03/24 04/19/24 History [Trelegy Ellipta 100-62.5-25] Rosuvastatin Calcium [Crestor] 40 mg PO DAILY 10/05/24 10/11/24 History busPIRone HCL 5 mg PO BID 04/13/24 04/19/24 History Dapagliflozin Propanediol [Farxiga] 10 mg PO DAILY 30 Days #30 tab 04/16/24 04/19/24 Rx Furosemide [Lasix] 40 mg PO BID 30 Days #60 tab 04/16/24 04/19/24 Rx Metoprolol Succinate (ER) [Toprol 50 mg PO DAILY #60 tab 04/16/24 04/19/24 Rx XL] Spironolactone [Aldactone] 12.5 mg PO DAILY 30 Days #30 tab 04/16/24 04/19/24 Rx Allergies Allergy/AdvReac Type Severity Reaction Status Date / Time adhesive Allergy blisters Verified 04/19/24 20:46 latex Allergy Rash/Hives Verified 04/19/24 20:46 Physical Exam Vitals: Vital Signs Temp Pulse Pulse Resp BP BP Pulse Ox 04/22/24 08:14 75 18 04/22/24 08:10 75 16 04/22/24 08:00 97.9 F 75 17 120/67 92 L 04/22/24 00:36 98.2 F 87 18 121/94 95 04/21/24 20:11 70 04/21/24 20:01 72 04/21/24 19:08 98.4 F 80 16 117/65 97 04/21/24 15:23 70 04/21/24 15:14 74 04/21/24 13:20 98.0 F 77 18 100/60 96 04/21/24 11:50 72 04/21/24 11:40 68 Intake and Output 04/21/24 04/22/24 04/22/24 22:59 06:59 14:59 Intake Total 1260 Output Total 200 Balance 1060 Intake: Oral 1260 Output: Urine 200 Other: Voiding Method Toilet Diaper # Voids 4 3 Weight 72.5 kg Results 04/21/24 04:33 04/21/24 04:33 Current Medications Generic Name Dose Route Start Last Admin Trade Name Freq PRN Reason Stop Dose Admin Acetaminophen 650 mg 04/19/24 19:56 Acetaminophen Tab 325 Mg Tab PO Q6HR PRN Mild Pain or Fever > 100.5 Hydrocodone Bitart/Acetaminophen 1 each 04/19/24 22:06 04/22/24 08:23 Hydrocodone/Apap 5-325mg 1 Each Tab PO 1 each Q4HR PRN Administration Pain Albuterol/Ipratropium 3 ml 04/19/24 19:58 04/21/24 19:59 Ipratropium-Albuterol 3 Ml Neb INHALATION 3 ml RT-TID PRN Administration Shortness Of Breath Or Wheezing Atorvastatin Calcium 80 mg 04/20/24 09:00 04/22/24 08:17 Atorvastatin 80 Mg Tab PO 80 mg DAILY TORIBIO Administration Budesonide/Formoterol Fumarate 2 puff 04/20/24 08:00 04/22/24 08:10 Symbicort 80-4.5 Mcg Inhaler INHALATION Not Given RT-BID TORIBIO Buspirone HCl 5 mg 04/19/24 21:00 04/22/24 08:18 Buspirone Hcl 5 Mg Tab PO Not Given BID TORIBIO Dapagliflozin 10 mg 04/20/24 09:00 04/22/24 08:17 Dapagliflozin Propanediol 10 Mg Tablet PO 10 mg DAILY OTRIBIO Administration Dexamethasone Sodium Phosphate 4 mg 04/21/24 12:53 Dexamethasone Sod Phosphate 4 Mg/Ml 1 Ml Vial IVP Q6HR PRN Nausea And Vomiting Furosemide 20 mg 04/21/24 21:00 04/22/24 08:18 Furosemide 10 Mg/Ml 2 Ml Vial IV 20 mg Q12HR TORIBIO Administration Guaifenesin 600 mg 04/21/24 21:00 04/22/24 08:17 Guaifenesin 600 Mg Tablet.Er PO 600 mg Q12HR TORIBIO Administration Guaifenesin/Dextromethorphan 10 ml 04/20/24 19:52 04/21/24 15:55 Guaifenesin-Dm 100-10mg/5ml 10 Ml Cup PO 10 ml Q6HR PRN Administration Cough Sodium Chloride 1,000 mls @ 20 mls/hr 04/19/24 20:00 04/21/24 21:34 Saline 0.9% IV Not Given .Q24H TORIBIO Ipratropium [place] 0.5 mg 04/20/24 08:00 04/22/24 08:10 Ipratropium 0.5 Mg/2.5 Ml Nebu INHALATION 0.5 mg RT-QID TORIBIO Administration Metoprolol Succinate 50 mg 04/20/24 09:00 04/21/24 07:39 Metoprolol Succinate (Er) 50 Mg Tab.Er.24h PO 50 mg DAILY TORIBIO Administration Naloxone HCl 0.2 mg 04/19/24 19:56 Naloxone 0.4 Mg/Ml 1 Ml Vial IV Q2M PRN Opioid Reversal Nystatin 500,000 unit 04/20/24 13:00 04/22/24 08:17 Nystatin 100,000 Unit/Ml Susp 500,000 Unit/5 Ml Cup PO 500,000 unit QID TORIBIO Administration Protocol Spironolactone 12.5 mg 04/20/24 09:00 04/22/24 08:17 Spironolactone 25 Mg Tab PO 12.5 mg DAILY TORIBIO Administration Intake and Output 04/21/24 04/22/24 04/22/24 22:59 06:59 14:59 Intake Total 1260 Output Total 200 Balance 1060 Intake: Oral 1260 Output: Urine 200 Other: Voiding Method Toilet Diaper # Voids 4 3 Weight 72.5 kg 04/21/24 04:33 04/21/24 04:33
--- NOTE | 2024-04-22 16:20 | MR ---
EXAMINATION TYPE: MR cervical spine wo/w con DATE OF EXAM: 04/22/2024 COMPARISON: None HISTORY: Bilateral arm paresthesia TECHNIQUE: Multiplanar, multisequence images of the cervical spine were acquired without contrast and with 7 mL intravenous Gadavist gadolinium contrast. Diffusion weighted imaging was performed. Findings: The craniovertebral junction relation to prevertebral soft tissues are normal. There is anterior metallic fusion from C3 through C6. The C6-7 disc space is well-preserved. The cerv ical cord is normal in size and signal intensity. There is mild posterior hypertrophic spurring at th e C3-4, C4-5 and C5-6 levels resulting in mild mass effect on the ventral aspect of thecal sac. There is no cervical stenosis. There is multilevel neural foraminal stenosis as follows; mild at C3-4 on the left, severe at the C4- 5 on the right, mild at C5-6 bilaterally and severe at C5-6 on the right.. IMPRESSION: 1. Cervical fusion from C3 through C6. 2. C6-7 disc preserved in height. 3. No cervical stenosis or cervical cord abnormality. 4. Multilevel neural foraminal stenosis as described above. [facility], , 04/22/2024 4:18 PM
--- NOTE | 2024-04-22 16:28 | XR ---
EXAMINATION TYPE: XR chest 1V portable DATE OF EXAM: 04/22/2024 COMPARISON: 04/20/2024 HISTORY: Shortness of breath TECHNIQUE: Single frontal view of the chest is obtained. FINDINGS: The interstitial markings are mildly prominent which may be chronic in nature. There is no airspace c onsolidation No pleural effusion or pneumothorax. The heart size is normal. The osseous structures are intact IMPRESSION: No definite acute cardiopulmonary disease. Mild diffuse interstitial markings which may b e chronic in nature. [facility], , 04/22/2024 4:26 PM
--- NOTE | 2024-04-22 16:37 | MR ---
INDICATION: Patient age:Female; 79 years old; Reason for study: weakness and numbness of upper and lower extremity; PHH. COMPARISON: CT brain 04/19/2024, 09/10/2020. TECHNIQUE: Multi planar, multi sequence imaging was performed through the brain. The patient was then given 7 cc of Gadavist intravenously and multi planar, T1 fat-saturation images were obtained. FINDINGS: Motion degraded examination. The giraldo-white junctions, ventricular system, basal cisterns appear unremarkable. Age-appropriate cer ebral volume loss. Diffusion-weighted imaging shows no evidence of restricted diffusion to suggest ac niko/subacute infarct. Intracranial arterial flow voids are maintained. Midline structures show no abn ormality. Patchy areas of high T2/FLAIR signal intensity are seen within the periventricular and subc ortical white matter. The susceptibility weighted images to remote microhemorrhage focus within the l eft parietal lobe laterally (series 702, image 417). After administration of gadolinium, no abnormal enhancement is seen. The bone marrow signal is within normal limits. Please refer to dedicated MR cervical spine the same day for findings. The paranasal sinuses are unremarkable. Bilateral trachea. IMPRESSION: 1. No evidence of intracranial mass, acute/subacute infarct, or abnormal enhancement. 2. Nonspecific white matter changes, likely related to small vessel ischemic disease [facility], , 04/22/2024 4:34 PM
[2024-04-22] MEDS: MAGNESIUM HYDROXIDE 2,400 MG/30 ML CUP PO PRN (17:07)
[2024-04-22] MEDS: SENNOSIDES 8.6 MG TAB PO SCH (20:01)
--- NOTE | 2024-04-23 02:48 | P.PN ---
Subjective Progress Note Date: 04/22/24 Patient is a 79-year-old female with CAD, and for, heart failure, CVA/TIA, hyperlipidemia, hypertension presenting with headache and paresthesia. She states that she has been feeling numbness and tingling in both her upper extremities and lower extremities. She also feels numbness and tingling along w ith a headache on the occipital portion of her head. She states these symptoms have been going on for over a week. She states that her arms and legs feel heavy and that it has been constant and has not gone away. Patient denies any exacerbating or relieving factors. She describes her headache aching, burning pain. She was here last week undergoing treatment for congestive heart failure and hyponatremia. Patient reports of ongoing cough for the past month. She reports that there is sputum production. Denies any hemoptysis. Patient also notes of having suspicion of oral thrush likely from her inhalers. Patient reports of denies any fever, chills, syncope, trauma, nausea, vomiting, ab dominal pain, slurred speech. Admits to shortness of breath. EKG independently interpreted shows Brain CT shows age-related atrophic and chronic small vessel ischemic changes without acute intracranial process seen at this time Sodium 128, potassium 4.0 chloride 93, CO2 27, BUN 20, creatinine 0.81. T98.2 F, MO 89, RR 18, BP 96/61, O2 sat 92 percent on room air ED documentation reviewed. 04/21. Patient seen and examined. States sore throat has improved. Still complaining of headache. Blood work done showed WBC 10.13, hemoglobin 713.7, sodium 129, potassium 3.5, BUN 17.1, creatinine 0.9 04/22/2024 Patient seen in follow-up continues to be followed by multiple consultations awaiting to undergo MRI of the brain along with cervical spine with orthopedics following. Cardiology has been consulted for surgical clearance and although considered moderate to high risk given significant comorbidities, patient is willing to proceed with surgery as she continues to have persistent numbness and tingling with paresthesias of the upper extremities along with heaviness. Patient is afebrile with no reports of chest pain or shortness of breath. Patient does have a cough and will obtain a chest x-ray. REVIEW OF SYSTEMS: CONSTITUTIONAL: No fever, no malaise,. CARDIOVASCULAR: No chest pain, no palpitations, no syncope. PULMONARY: No shortness of breath, no cough, GASTROINTESTINAL: No diarrhea, no nausea, no vomiting, no abdominal pain. NEUROLOGICAL: As mentioned above PHYSICAL EXAMINATION: GENERAL: The patient is alert and oriented x3, ill looking, cervical collar in place HEENT: Pupils are round and equally reacting to light. EOMI. No scleral icterus. No conjunctival pallor. Normocephalic, atraumatic. No pharyngeal erythema. No thyromegaly. CARDIOVASCULAR: S1 and S2 present. No murmurs, rubs, or gallops. PULMONARY: Diminished breath sounds bilaterally with a few scattered rhonchi are noted. ABDOMEN: Soft, obese, nontender, nondistended, normoactive bowel sounds. No palpable organomegaly. MUSCULOSKELETAL: No joint swelling or deformity. EXTREMITIES: No cyanosis, clubbing, or pedal edema. NEUROLOGICAL: Gross neurological examination did not reveal any focal deficits. Diffusely weak SKIN: No rashes. Assessment: -Headache, left occipital, scheduled to undergo MRI of the brain which is pending for today -Bilateral upper and lower extremity paresthesias with significant history of cervical stenosis with previous surgical intervention, awaiting MRI of the cervical spine with possible surgical intervention as patient is extremely symptomatic and having bilateral upper extremity weakness and heaviness with continued tingling -Cough with shortness of breath, virology testing negative, COPD acute exacerbation -Hyponatremia, improving -Oral thrush -CHF not in acute exacerbation -History of CAD -Anxiety/depression -Obesity with a BMI of 34.6 GI prophylaxis -DVT prophylaxis -Full code. Plan: Patient is scheduled to undergo MRI of the brain and cervical spine today with orthopedics following as patient continues to report paresthesias of the upper extremities with weakness and heaviness Cardiology consulted for surgical clearance as patient has significant comorbidities Will follow-up on chest x-ray for evaluation Patient is maintained on gentle hydration and will continue and follow-up with repeat labs to monitor kidney functions. Replace electrolytes per protocol Home medications reviewed and resumed as appropriate. Plavix is being held at this time in the event surgical intervention is performed Recommend PT/OT therapy evaluation Due to multiple complex medical issues, overall prognosis is guarded The impression and plan of care has been dictated by Ofelia Bryson, Nurse Practitioner as directed. Dr. Manuel MD I have performed a history and examination and MDM of this patient, discussed the same with the dictator, and agree with the dictator's assessment and plan as written ,documented as a scribe. Based on total visit time, I have performed more than 50% of the visit. Objective - Vital Signs Vital signs: Vital Signs Temp 97.6 F 04/22/24 19:45 Pulse 87 04/22/24 21:09 Resp 18 04/22/24 19:45 BP 136/71 04/22/24 19:45 Pulse Ox 95 04/22/24 19:45 FiO2 Intake & Output 04/22/24 04/22/24 04/23/24 06:59 18:59 06:59 Intake Total 1500 Output Total 1200 Balance 300 Weight 72.5 kg Intake: Other 1500 Output: Urine 1200 Other: Voiding Method Toilet Toilet Diaper # Voids 4 3 - Labs CBC & Chem 7: 04/21/24 04:33 04/21/24 04:33
[2024-04-23 09:26] LABS: BUN/Creat Ratio 19.89 Ratio (12.00-20.00); Blood Urea Nitrogen 17.9 mg/dL (9.0-27.0); Calcium 8.8 mg/dL (8.7-10.3); Carbon Dioxide 25.9 mmol/L (21.6-31.8); Chloride 92 mmol/L (96-109); Glucose 99 mg/dL (70-110); Potassium 3.5 mmol/L (3.5-5.5); Sodium 130 mmol/L (135-145)
--- NOTE | 2024-04-23 14:19 | P.PN ---
Subjective Progress Note Date: 04/23/24 Reason for Consult (text): Surgical clearance History of present illness: This is a 79-year-old female patient of Dr. Sloan with past medical history of paroxysmal atrial fibrillation, coronary artery disease status post coronary artery bypass grafting, moderate aortic stenosis, mild to first-degree AV block. Patient had a recent hospitalization in March at which time she was treated for severe hyponatremia secondary to hydrochlorothiazide for which she was on for lower extremity edema. We have been asked to evaluate the patient for surgical clearance prior to cervical spine surgery. Patient states that she has been having trouble for some time with the initial admission for low sodium. She states that at the time she was feeling funny in her legs and arms weighed a ton. She also had head and neck pain at the time with no known injury or fall. She was lightheaded and weak all over. She was stabilized and discharged but returned on April 19 due to bilateral leg and arm numbness and she continued to have head and neck pain. She states she has a history of neck surgery in the past. In general she states she has not been feeling well for couple weeks. She does have a cough. No chest pain. Patient is on Plavix which is currently on hold starting today. Patient is not normally very active as she has trouble walking due to osteoarthritis and also to a lesser degree pulmonary fibrosis. Blood pressure 120/67, heart rate 75, pulse ox 92% on room air. EKG: Sinus rhythm with occasional PVC Chest x-ray: Improving mild bilateral lung infiltrates. Correlate for resolving pulmonary edema or atypical pneumonia. Laboratory studies: WBC 10, hemoglobin 13.7, platelet count 309. Sodium 129, potassium 3.5, BUN 17 creatinine 0.9. Magnesium 2.1. A1c 5.8. Triglycerides 67, cholesterol 123, LDL 57, HDL 52. TSH 2.4. Influenza A, influenza B, RSV, COVID-19 and group A strep not detected. Troponin negative x 1. Home cardiac medications: Plavix 75 mg daily, Farxiga 10 mg daily, Lasix 40 mg twice daily, Toprol-XL 50 mg daily, rosuvastatin 40 mg daily, Aldactone 12.5 mg daily. Cardiac catheterization history 2007, normal EF, 20% distal LM, mild triple- vessel disease. Echocardiogram 02/29/2024 reveals EF 55 to 60% and moderate AAS. Holter monitor10/2023 revealed sinus rhythm, heart rate 5397 with average 77 bpm, frequent PACs 67%, greater than 3900 episodes of A-fib/irregular A. tach, 3-second pauses longest 3.1-second. Lexiscan stress test 05/04/2020 revealed no evidence of reversible ischemia. 04/23 Patient is seen and examined. She is scheduled for surgery on Monday. She remains off Plavix. Patient denies chest pain and shortness of breath. Blood pressure 107/52, heart rate 86, pulse ox 91% on room air. Repeat blood work reveals sodium 130, potassium 3.5, creatinine 0.9. Physical examination: Gen: This is a 79-year-old female in no acute distress VS: reviewed HEENT: Head is atraumatic, normocephalic. Pupils equal, round. Sclerae is anicteric. NECK: Supple. No JVD. LUNGS: Clear to auscultation. No wheezes or rhonchi. No intercostal retractions. HEART: Regular rate and rhythm. Systolic murmur. ABDOMEN: Soft No tenderness. EXTREMITIES: No pedal edema. No calf tenderness. NEUROLOGICAL: Patient is awake, alert and oriented x3. Assessment: Cervical spine stenosis with plan for surgical intervention on Monday, history of previous C3-C7 ACDF Hyponatremia Paroxysmal atrial fibrillation Coronary artery disease with previous coronary artery bypass grafting Moderate aortic stenosis Mild first-degree AV block Plan: Continue patient's home cardiac medications with the exception of Plavix which is on hold Continue gentle diuresing Patient is at high risk for complications during the perioperative period due to multiple comorbidities including pulmonary fibrosis, hyponatremia, aortic valve stenosis, atrial fibrillation. The benefits of surgery outweigh the risk of complications, thus, patient is cleared for surgical intervention. Cardiology will sign off this case and follow on an as-needed basis. Please reconsult for any new concerns. Patient may follow-up in the office in one to 2 weeks. Nurse practitioner note has been reviewed, I agree with documented findings and plan of care. Patient was seen and examined. Objective - Vital Signs Vital signs: Vital Signs Temp 97.3 F L 04/23/24 12:24 Pulse 91 04/23/24 12:24 Resp 22 04/23/24 12:24 BP 114/73 04/23/24 12:24 Pulse Ox 97 04/23/24 12:24 FiO2 Intake & Output 10/14/24 10/15/24 10/15/24 18:59 06:59 18:59 Intake Total 1500 180 Output Total 1200 850 350 Balance 300 -850 -170 Weight 74.5 kg Intake: Oral 180 Other 1500 Output: Urine 1200 850 350 Other: Voiding Method Toilet Toilet # Voids 3 3 - Labs CBC & Chem 7: 04/21/24 04:33 04/23/24 03:47 Labs: Abnormal Lab Results - Last 24 Hours (Table) 04/23/24 Range/Units 03:47 Sodium 130 L (135-145) mmol/L Chloride 92 L (96-109) mmol/L Anion Gap 12.10 H (4.00-12.00) mmol/L
--- NOTE | 2024-04-24 05:50 | P.PN ---
Subjective Progress Note Date: 04/23/24 Patient is a 79-year-old female with CAD, and for, heart failure, CVA/TIA, hyperlipidemia, hypertension presenting with headache and paresthesia. She states that she has been feeling numbness and tingling in both her upper extremities and lower extremities. She also feels numbness and tingling along w ith a headache on the occipital portion of her head. She states these symptoms have been going on for over a week. She states that her arms and legs feel heavy and that it has been constant and has not gone away. Patient denies any exacerbating or relieving factors. She describes her headache aching, burning pain. She was here last week undergoing treatment for congestive heart failure and hyponatremia. Patient reports of ongoing cough for the past month. She reports that there is sputum production. Denies any hemoptysis. Patient also notes of having suspicion of oral thrush likely from her inhalers. Patient reports of denies any fever, chills, syncope, trauma, nausea, vomiting, ab dominal pain, slurred speech. Admits to shortness of breath. EKG independently interpreted shows Brain CT shows age-related atrophic and chronic small vessel ischemic changes without acute intracranial process seen at this time Sodium 128, potassium 4.0 chloride 93, CO2 27, BUN 20, creatinine 0.81. T98.2 F, CO 89, RR 18, BP 96/61, O2 sat 92 percent on room air ED documentation reviewed. 04/21. Patient seen and examined. States sore throat has improved. Still complaining of headache. Blood work done showed WBC 10.13, hemoglobin 713.7, sodium 129, potassium 3.5, BUN 17.1, creatinine 0.9 04/22/2024 Patient seen in follow-up continues to be followed by multiple consultations awaiting to undergo MRI of the brain along with cervical spine with orthopedics following. Cardiology has been consulted for surgical clearance and although considered moderate to high risk given significant comorbidities, patient is willing to proceed with surgery as she continues to have persistent numbness and tingling with paresthesias of the upper extremities along with heaviness. Patient is afebrile with no reports of chest pain or shortness of breath. Patient does have a cough and will obtain a chest x-ray. 04/23/2024 Patient is seen and evaluated in follow-up today and per orthopedics is te ntatively scheduled for surgery on 04/26/2024. Patient continues to report paresthesia and heaviness of her upper extremities with constant tingling. Cardiology consulted for medical clearance. Chest x-ray showing no acute process and patient currently maintained on room air. Patient is afebrile with no reports of chest pain or shortness of breath. Patient has been tolerating diet with no reported nausea or vomiting. REVIEW OF SYSTEMS: CONSTITUTIONAL: No fever, no malaise,. CARDIOVASCULAR: No chest pain, no palpitations, no syncope. PULMONARY: No shortness of breath, no cough, GASTROINTESTINAL: No diarrhea, no nausea, no vomiting, no abdominal pain. NEUROLOGICAL: As mentioned above PHYSICAL EXAMINATION: GENERAL: The patient is alert and oriented x3, ill looking, cervical collar in place HEENT: Pupils are round and equally reacting to light. EOMI. No scleral icterus. No conjunctival pallor. Normocephalic, atraumatic. No pharyngeal erythema. No thyromegaly. CARDIOVASCULAR: S1 and S2 present. No murmurs, rubs, or gallops. PULMONARY: Diminished breath sounds bilaterally with a few scattered rhonchi are noted. ABDOMEN: Soft, obese, nontender, nondistended, normoactive bowel sounds. No palpable organomegaly. MUSCULOSKELETAL: No joint swelling or deformity. EXTREMITIES: No cyanosis, clubbing, or pedal edema. Bilateral upper extremities 4/5 strength NEUROLOGICAL: Gross neurological examination did not reveal any focal deficits. Diffusely weak SKIN: No rashes. Assessment: -Headache, left occipital, MRI of the brain negative for acute process -Bilateral upper and lower extremity paresthesias with significant history of cervical stenosis with previous surgical intervention, tentatively scheduled 04/26/2024 for surgical intervention as patient is extremely symptomatic and having bilateral upper extremity weakness and heaviness with continued tingling -Cough with shortness of breath, virology testing negative, COPD acute exacerbation -Hyponatremia, improving -Oral thrush -CHF not in acute exacerbation -History of CAD -Anxiety/depression -Obesity with a BMI of 34.6 GI prophylaxis -DVT prophylaxis -Full code. Plan: Patient underwent MRI of the brain and cervical spine per orthopedics following as patient continues to report paresthesias of the upper extremities with weakness and heaviness. Tentatively scheduled for surgical intervention on 04/09 Cardiology consulted for surgical clearance as patient has significant comorbidities Chest x-ray shows no acute process Patient is maintained on gentle hydration and will continue and follow-up with repeat labs to monitor kidney functions. Replace electrolytes per protocol Home medications reviewed and resumed as appropriate. Plavix is being held at this time in the event surgical intervention is performed Recommend PT/OT therapy evaluation Due to multiple complex medical issues, overall prognosis is guarded The impression and plan of care has been dictated by Ofelia Bryson, Nurse Practitioner as directed. Dr. Manuel MD I have performed a history and examination and MDM of this patient, discussed the same with the dictator, and agree with the dictator's assessment and plan as written ,documented as a scribe. Based on total visit time, I have performed more than 50% of the visit. Objective - Vital Signs Vital signs: Vital Signs Temp 98.0 F 04/23/24 07:38 Pulse 82 04/23/24 11:13 Resp 16 04/23/24 11:13 BP 108/68 04/23/24 07:38 Pulse Ox 94 L 04/23/24 07:38 FiO2 Intake & Output 04/22/24 04/23/24 04/23/24 18:59 06:59 18:59 Intake Total 1500 180 Output Total 1200 850 350 Balance 300 -850 -170 Weight 74.5 kg Intake: Oral 180 Other 1500 Output: Urine 1200 850 350 Other: Voiding Method Toilet Toilet # Voids 3 3 - Labs CBC & Chem 7: 04/21/24 04:33 04/23/24 03:47 Labs: Abnormal Lab Results - Last 24 Hours (Table) 04/23/24 Range/Units 03:47 Sodium 130 L (135-145) mmol/L Chloride 92 L (96-109) mmol/L Anion Gap 12.10 H (4.00-12.00) mmol/L
--- NOTE | 2024-04-24 08:12 | P.PN ---
Subjective Progress Note Date: 04/24/24 Principal diagnosis: neck pain bilateral upper extremity weakness bilateral upper extremity radiculopathy Patient seen and examined this morning. Patient is resting comfortably in bed. She does continue to report cervical pain that radiates into the bilateral upper extremities, associated with numbness and tingling into her hands. Patient has discussed with her family the option of surgery on Monday and she would like to proceed. Informed patient hat we will need to cut her hair and that we will wait to do this tomorrow. Questions and concerns have been addressed. No acute concerns at this time. Objective - Vital Signs Vital signs: Vital Signs Temp 97.7 F 04/24/24 07:36 Pulse 76 04/24/24 07:36 Resp 16 04/24/24 07:36 BP 122/60 04/24/24 07:36 Pulse Ox 95 04/24/24 07:36 FiO2 Intake & Output 04/23/24 04/24/24 04/24/24 18:59 06:59 18:59 Intake Total 1100 1981 Output Total 500 300 Balance 600 1682 Weight 74 kg Intake: Oral 1100 1981 Output: Urine 500 300 Other: Voiding Method Toilet Toilet - Exam Physical Examination General: The patient is awake and alert, in no acute distress Skin: Skin is warm and dry with no obvious rashes or lesions. Eye: Pupils are equal, round and reactive to light, extra-ocular movements are intact; there is normal conjunctiva bilaterally. Neck: The neck is supple, there is tenderness and limited range of motion. Pat ient states that she does have difficulty with flexion and extension and rotation of the cervical spine. Cardiovascular: There is a regular rate and rhythm. No murmur, rub or gallop is appreciated. Respiratory: Respirations are non-labored, breath sounds are equal. Gastrointestinal: Soft, non-distended, non-tender abdomen. Back: There is no tenderness to palpation in the midline, paralumbar, parathoracic or buttocks region. There is no obvious deformity. Musculoskeletal: ROM limited secondary to pain and stiffness. Psychiatric: Cooperative, appropriate mood & affect, normal judgment. - Labs CBC & Chem 7: 04/21/24 04:33 04/23/24 03:47 Labs: Abnormal Lab Results - Last 24 Hours (Table) 04/23/24 Range/Units 03:47 Sodium 130 L (135-145) mmol/L Chloride 92 L (96-109) mmol/L Anion Gap 12.10 H (4.00-12.00) mmol/L Assessment and Plan Assessment: History of C3-C7 ACDF Cervical central canal and neuroforaminal stenosis Multilevel facet arthropathy Bilateral upper extremity radiculopathy Plan: At this time we recommend surgical intervention that consist of occipitalT2 posterior decompression and fusion. This has been scheduled for Monday04/26/24. 2. Appreciate medical management 3. Pain management -continue with [place] and Tylenol as needed 4. GI prophylaxis -senna 5. DVT prophylaxis -Per medicine, mechanical 6. PT/OT - weightbearing as tolerated with a walker as needed. 7. Appreciate consult
--- NOTE | 2024-04-24 10:43 | P.PN ---
Subjective Progress Note Date: 04/23/[address] Patient initially seen by Dr[address] Samy Guadalupe. Please refer to his note for details. Patient is a 79-year-old female, who had transient episode of weakness and numbness. Cervical myelopathy was suspected. Patient has history of previous neck surgery. Orthopedics on board. Patient at present is sitting in the recliner. Patient states that she has history of neck surgery with placement of cage 7 years ago. Patient states that her arms feel like they are "50 pounds weight on each". This has been progressing for last "7 years", progressively getting worse. Patient states her feet feels off and she has "muscle cramps all over". Her hands and arms are numb. Feet also feels half-asleep. Some of the workup during this hospital visit consisted of: CBC with differential is unremarkable Sodium is 128 and the repeated is 127. On 03/04/2024 was as low as 119. CRP is less than 0.5. Calcium, magnesium, creatinine is within normal limits TSH: 2.45 B12: 587 CT of the head is reported as age-related atrophy and chronic small vessel ischemic change without acute intracranial process seen at this time. I personally reviewed the CT and agree with that. CT cervical: Surgical changes from the anterior cervical fusion C3-C7. Foraminal narrowing C4-C5 and C6-C7 Objective - Vital Signs Vital signs: Vital Signs Temp 98.0 F 04/23/24 13:48 Pulse 75 04/23/24 15:34 Resp 18 04/23/24 13:48 BP 107/52 04/23/24 13:48 Pulse Ox 91 L 04/23/24 13:48 FiO2 Intake & Output 04/22/24 04/23/24 04/23/24 18:59 06:59 18:59 Intake Total 1500 1100 Output Total 1200 850 500 Balance 300 -850 600 Weight 74.5 kg Intake: Oral 1100 Other 1500 Output: Urine 1200 850 500 Other: Voiding Method Toilet Toilet # Voids 3 3 - Exam Patient's mental status, speech and language functions are normal. Cranial nerves are normal. On muscle strength testing the strength is completely normal in the upper extremities in deltoid, biceps, triceps, industrial court magistrate bilaterally. In the lower limbs, her hip flexion is 4+ right, 5-left, but ankles are normal bilaterally. Reflexes are (right/left) biceps 3/2+, brachioradialis 3/2+, knees 3/3, ankles 2+/2+ and plantars are upgoing bilaterally. Sensory to touch is equal. Patient does have multiple bruises in the arms. - Labs CBC & Chem 7: 04/21/24 04:33 04/23/24 03:47 Labs: Abnormal Lab Results - Last 24 Hours (Table) 04/23/24 Range/Units 03:47 Sodium 130 L (135-145) mmol/L Chloride 92 L (96-109) mmol/L Anion Gap 12.10 H (4.00-12.00) mmol/L Assessment and Plan Assessment: This is a 79-year-old woman with multiple medical issues including skin cancer who presents to the emergency department because of episode of bilateral upper and lower extremity weakness and she fell yesterday felt like Jell-O as well as complaining of left neck pain and less of occipital pain. She has history of surgery in which she had a cage placed about 5 years ago. She was recently discharged with hyponatremia and congestive heart failure and she stated that she was discharged about 2 days ago. Transient episode of bilateral upper lower extremity weakness with numbness seems more cervical myelopathy. On examination has upper and lower extremity hyperreflexia and +ve Lau sign bilaterally. Cervicogenic cephalgia. Cannot rule out left occipital neuralgia. Rule out brain mets especially with history of brain mets. Hyponatremia and currently sodium is 127 on 03/04/2024 her sodium was as low as 119 and was recently here in our facility and improved to 132 on 04/16/2024. 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 Nonspecific white matter changes, likely related to small vessel ischemic disease. I personally reviewed MRI agree with the findings. * MRI of the cervical spine revealed cervical fusion from C3-C6. C6-7 disc preserved in height. No cervical stenosis or cervical cord abnormality. Multilevel neural foraminal stenosis. I personally reviewed MRI agree, and there is probable stenosis at high cervical spine at C2 level, although uncertain to its severity.. 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 Orthopedic surgery are planning surgical intervention that consists of occipit al to T2 posterior decompression and fusion, that has been scheduled for 04/26/2024. * Patient is on Plavix 75 mg daily as well as Lipitor 80 mg daily. Plavix on hold for possible surgery * B12 587, TSH 2.45, hemoglobin A1c 5.8. Check folic acid. * Will defer the rest of the medical management to primary and other specialist next
[2024-04-24] MEDS ORDERED: Potassium Replacement Protocol 1 EACH MISC MISCELLANE PRN (11:14)
--- NOTE | 2024-04-24 11:17 | P.PN ---
Subjective Progress Note Date: 04/24/24 Patient is a 79-year-old female with CAD, and for, heart failure, CVA/TIA, hyperlipidemia, hypertension presenting with headache and paresthesia. She states that she has been feeling numbness and tingling in both her upper extremities and lower extremities. She also feels numbness and tingling along w ith a headache on the occipital portion of her head. She states these symptoms have been going on for over a week. She states that her arms and legs feel heavy and that it has been constant and has not gone away. Patient denies any exacerbating or relieving factors. She describes her headache aching, burning pain. She was here last week undergoing treatment for congestive heart failure and hyponatremia. Patient reports of ongoing cough for the past month. She reports that there is sputum production. Denies any hemoptysis. Patient also notes of having suspicion of oral thrush likely from her inhalers. Patient reports of denies any fever, chills, syncope, trauma, nausea, vomiting, ab dominal pain, slurred speech. Admits to shortness of breath. EKG independently interpreted shows Brain CT shows age-related atrophic and chronic small vessel ischemic changes without acute intracranial process seen at this time Sodium 128, potassium 4.0 chloride 93, CO2 27, BUN 20, creatinine 0.81. T98.2 F, VA 89, RR 18, BP 96/61, O2 sat 92 percent on room air ED documentation reviewed. 04/21. Patient seen and examined. States sore throat has improved. Still complaining of headache. Blood work done showed WBC 10.13, hemoglobin 713.7, sodium 129, potassium 3.5, BUN 17.1, creatinine 0.9 04/22/2024 Patient seen in follow-up continues to be followed by multiple consultations awaiting to undergo MRI of the brain along with cervical spine with orthopedics following. Cardiology has been consulted for surgical clearance and although considered moderate to high risk given significant comorbidities, patient is willing to proceed with surgery as she continues to have persistent numbness and tingling with paresthesias of the upper extremities along with heaviness. Patient is afebrile with no reports of chest pain or shortness of breath. Patient does have a cough and will obtain a chest x-ray. 04/23/2024 Patient is seen and evaluated in follow-up today and per orthopedics is te ntatively scheduled for surgery on 04/26/2024. Patient continues to report paresthesia and heaviness of her upper extremities with constant tingling. Cardiology consulted for medical clearance. Chest x-ray showing no acute process and patient currently maintained on room air. Patient is afebrile with no reports of chest pain or shortness of breath. Patient has been tolerating diet with no reported nausea or vomiting. 04/24/2024 Patient is seen in follow-up today with orthopedics following closely. Patient will be scheduled for decompression and fusion on 04/26/[address] Butterfield. Patient is maintained on IV Lasix for some mild volume overload and lower extremity edema and is improving. Continue with DuoNeb treatments and other medications. Patient potassium remains 3.5 and will replace per protocol and recommend daily supplementation. Patient is afebrile with no reports of chest pain or shortness of breath. Patient has been tolerating diet with no reported nausea or vomiting. Continue bowel regimen scheduled and as needed. REVIEW OF SYSTEMS: CONSTITUTIONAL: No fever, no malaise,. CARDIOVASCULAR: No chest pain, no palpitations, no syncope. PULMONARY: No shortness of breath, no cough, GASTROINTESTINAL: No diarrhea, no nausea, no vomiting, no abdominal pain. NEUROLOGICAL: As mentioned above PHYSICAL EXAMINATION: GENERAL: The patient is alert and oriented x3, ill looking, elderly appearing, cervical collar in place HEENT: Pupils are round and equally reacting to light. EOMI. No scleral icterus. No conjunctival pallor. Normocephalic, atraumatic. No pharyngeal erythema. No thyromegaly. CARDIOVASCULAR: S1 and S2 present. No murmurs, rubs, or gallops. PULMONARY: Diminished breath sounds bilaterally with a few scattered rhonchi are noted. ABDOMEN: Soft, obese, nontender, nondistended, normoactive bowel sounds. No palpable organomegaly. MUSCULOSKELETAL: No joint swelling or deformity. EXTREMITIES: No cyanosis, clubbing, or pedal edema. Bilateral upper extremities 4/5 strength NEUROLOGICAL: Gross neurological examination did not reveal any focal deficits. Diffusely weak SKIN: No rashes. Assessment: -Headache, left occipital, MRI of the brain negative for acute process -Bilateral upper and lower extremity paresthesias with significant history of cervical stenosis with previous surgical intervention, tentatively scheduled 04/26/2024 for surgical intervention as patient is extremely symptomatic and having bilateral upper extremity weakness and heaviness with continued tingling -Cough with shortness of breath, virology testing negative, COPD acute exacerbation -Hyponatremia, improving -Oral thrush -CHF not in acute exacerbation -History of CAD -Anxiety/depression -Obesity with a BMI of 34.6 GI prophylaxis -DVT prophylaxis -Full code. Plan: Patient underwent MRI of the brain and cervical spine per orthopedics following as patient continues to report paresthesias of the upper extremities with weakness and heaviness. Tentatively scheduled for surgical intervention with decompression and fusion of the thoracic spine on 04/26/2024 Cardiology consulted for surgical clearance as patient has significant comorbidities Chest x-ray shows no acute process Patient is maintained on gentle hydration and will continue and follow-up with repeat labs to monitor kidney functions. Replace electrolytes per protocol Home medications reviewed and resumed as appropriate. Plavix is being held at this time in the event surgical intervention is performed Recommend PT/OT therapy evaluation Due to multiple complex medical issues, overall prognosis is guarded The impression and plan of care has been dictated by Ofelia Bryson, Nurse Practitioner as directed. Dr. Manuel MD I have performed a history and examination and MDM of this patient, discussed the same with the dictator, and agree with the dictator's assessment and plan as written ,documented as a scribe. Based on total visit time, I have performed more than 50% of the visit. Objective - Vital Signs Vital signs: Vital Signs Temp 97.7 F 04/24/24 07:36 Pulse 75 04/24/24 08:16 Resp 16 04/24/24 07:36 BP 122/60 04/24/24 07:36 Pulse Ox 95 04/24/24 07:36 FiO2 Intake & Output 04/23/24 04/24/24 04/24/24 18:59 06:59 18:59 Intake Total 1100 1981 240 Output Total 500 300 700 Balance 600 1682 -460 Weight 74 kg Intake: Oral 1100 1981 240 Output: Urine 500 300 700 Other: Voiding Method Toilet Toilet Toilet - Labs CBC & Chem 7: 04/21/24 04:33 04/23/24 03:47
[2024-04-24] MEDS: POTASSIUM CHLORIDE ER 20 MEQ TAB.ER PO SCH (11:43)
[2024-04-24] MEDS: LACTULOSE 20 GM/30 ML CUP PO SCH (13:48)
[2024-04-24] MEDS: MAGNESIUM CITRATE 296 ML BOTTLE PO ONE (20:37)
[2024-04-24] MEDS: POTASSIUM CHLORIDE ER 10 MEQ TAB.ER.PRT PO SCH (23:32)
[2024-04-25 08:34] LABS: Basophils % (A) 1.1 %; Eosinophils # (A) 0.45 X 10*3/uL (0.04-0.35); Eosinophils % (A) 4.8 %; HGB 13.9 g/dL (12.0-15.0); Lymphocytes # (A) 3.14 X 10*3/uL (0.90-5.00); Lymphocytes % (A) 33.5 %; MCH 29.6 pg (27.0-32.0); MCHC 33.1 g/dL (32.0-37.0); MCV 89.6 FL (80.0-97.0); Mean Platelet Volume 10.7 FL (9.5-12.2); Monocytes # (A) 1.02 X 10*3/uL (0.20-1.00); Monocytes % (A) 10.9 %; NRBC Per 100 WBC 0 X 10*3/uL (0.00-0.01); Neutrophils # (A) 4.64 X 10*3/uL (1.80-7.70); Neutrophils % (A) 49.5 %; Platelet Count 258 X 10*3/uL (140-440); RBC 4.69 X 10*6/uL (4.10-5.20); RDW 13.3 % (11.5-14.5); WBC 9.37 X 10*3/uL (4.50-10.00)
[2024-04-25 08:52] LABS: ALT 28 U/L (8-44); AST 27 U/L (13-35); Albumin 3.9 g/dL (3.8-4.9); Albumin/Globulin Ratio 1.86 Ratio (1.60-3.17); Alkaline Phosphatase 109 U/L (41-126); BUN/Creat Ratio 20.67 Ratio (12.00-20.00); Blood Urea Nitrogen 18.6 mg/dL (9.0-27.0); Calcium 8.8 mg/dL (8.7-10.3); Carbon Dioxide 24.3 mmol/L (21.6-31.8); Chloride 96 mmol/L (96-109); Globulin 2.1 g/dL (1.6-3.3); Glucose 100 mg/dL (70-110); Magnesium 2.3 mg/dL (1.5-2.4); Potassium 4.1 mmol/L (3.5-5.5); Sodium 132 mmol/L (135-145); Total Bilirubin 0.4 mg/dL (0.3-1.2)
[2024-04-25 09:27] LABS: INR 0.9 (<1.2); Partial Thromboplastin Time 26.8 sec (22.0-30.0); Prothrombin Time 10.2 sec (10.0-12.5)
[2024-04-25] MEDS ORDERED: BENZOCAINE/MENTHOL LOZENG 1 EACH LOZENGE MUCOUS MEM PRN (10:33)
--- NOTE | 2024-04-25 11:32 | P.PN ---
Subjective Progress Note Date: 04/25/24 Patient is a 79-year-old female with CAD, and for, heart failure, CVA/TIA, hyperlipidemia, hypertension presenting with headache and paresthesia. She states that she has been feeling numbness and tingling in both her upper extremities and lower extremities. She also feels numbness and tingling along with a headache on the occipital portion of her head. She states these symptoms have been going on for over a week. She states that her arms and legs feel heavy and that it has been constant and has not gone away. Patient denies any exacerbating or relieving factors. She describes her headache aching, burning pain. She was here last week undergoing treatment for congestive heart failure and hyponatremia. Patient reports of ongoing cough for the past month. She reports that there is sputum production. Denies any hemoptysis. Patient also notes of having suspicion of oral thrush likely from her inhalers. Patient reports of denies any fever, chills, syncope, trauma, nausea, vomiting, abdo rdaha pain, slurred speech. Admits to shortness of breath. EKG independently interpreted shows Brain CT shows age-related atrophic and chronic small vessel ischemic changes without acute intracranial process seen at this time Sodium 128, potassium 4.0 chloride 93, CO2 27, BUN 20, creatinine 0.81. T98.2 F, NM 89, RR 18, BP 96/61, O2 sat 92 percent on room air ED documentation reviewed. 04/21. Patient seen and examined. States sore throat has improved. Still complaining of headache. Blood work done showed WBC 10.13, hemoglobin 713.7, sodium 129, potassium 3.5, BUN 17.1, creatinine 0.9 04/22/2024 Patient seen in follow-up continues to be followed by multiple consultations awaiting to undergo MRI of the brain along with cervical spine with orthopedics following. Cardiology has been consulted for surgical clearance and although considered moderate to high risk given significant comorbidities, patient is willing to proceed with surgery as she continues to have persistent numbness and tingling with paresthesias of the upper extremities along with heaviness. Patient is afebrile with no reports of chest pain or shortness of breath. Patient does have a cough and will obtain a chest x-ray. 04/23/2024 Patient is seen and evaluated in follow-up today and per orthopedics is tent atively scheduled for surgery on 04/26/2024. Patient continues to report paresthesia and heaviness of her upper extremities with constant tingling. Cardiology consulted for medical clearance. Chest x-ray showing no acute process and patient currently maintained on room air. Patient is afebrile with no reports of chest pain or shortness of breath. Patient has been tolerating diet with no reported nausea or vomiting. 04/24/2024 Patient is seen in follow-up today with orthopedics following closely. Patient will be scheduled for decompression and fusion on 04/26/[address] Butterfield. Patient is maintained on IV Lasix for some mild volume overload and lower extremity edema and is improving. Continue with DuoNeb treatments and other medications. Patient potassium remains 3.5 and will replace per protocol and recommend daily supplementation. Patient is afebrile with no reports of chest pain or shortness of breath. Patient has been tolerating diet with no reported nausea or vomiting. Continue bowel regimen scheduled and as needed. 04/25/2024 Eval today in follow-up sitting up in the chair. She is not reporting any shortness of breath or chest discomfort. Patient is continued on IV Lasix and has had further improvement in her sodium level currently 132. Patient was cl eared by cardiology to undergo surgical intervention with overall benefits outweigh the risks. Surgery has been moved up to this afternoon. Patient does continue to report a dry hacking cough has been ongoing for the last 6 weeks. She is receiving a combination of Robitussin and Mucinex for this we will add Tessalon Perles and Cepacol lozenge. REVIEW OF SYSTEMS: CONSTITUTIONAL: No fever, no malaise,. CARDIOVASCULAR: No chest pain, no palpitations, no syncope. PULMONARY: No shortness of breath, no cough, GASTROINTESTINAL: No diarrhea, no nausea, no vomiting, no abdominal pain. NEUROLOGICAL: As mentioned above PHYSICAL EXAMINATION: GENERAL: The patient is alert and oriented x3, ill looking, elderly appearing, cervical collar in place HEENT: Pupils are round and equally reacting to light. EOMI. No scleral icterus. No conjunctival pallor. Normocephalic, atraumatic. No pharyngeal erythema. No thyromegaly. CARDIOVASCULAR: S1 and S2 present. No murmurs, rubs, or gallops. PULMONARY: Diminished breath sounds bilaterally with a few scattered rhonchi are noted. ABDOMEN: Soft, obese, nontender, nondistended, normoactive bowel sounds. No palpable organomegaly. MUSCULOSKELETAL: No joint swelling or deformity. EXTREMITIES: No cyanosis, clubbing, or pedal edema. Bilateral upper extremities 4/5 strength NEUROLOGICAL: Gross neurological examination did not reveal any focal deficits. Diffusely weak SKIN: No rashes. Assessment: -Headache, left occipital, MRI of the brain negative for acute process -Bilateral upper and lower extremity paresthesias with significant history of cervical stenosis with previous surgical intervention, tentatively scheduled 04/26/2024 for surgical intervention as patient is extremely symptomatic and having bilateral upper extremity weakness and heaviness with continued tingling -Cough with shortness of breath, virology testing negative, COPD acute exacerbation -Hyponatremia, hypervolemic improving with IV lasix. -Oral thrush -CHF not in acute exacerbation -History of CAD -Anxiety/depression -Obesity with a BMI of 34.6 GI prophylaxis -DVT prophylaxis -Full code. Plan: Patient underwent MRI of the brain and cervical spine per orthopedics following as patient continues to report paresthesias of the upper extremities with weakness and heaviness. Tentatively scheduled for surgical intervention with decompression and fusion of the thoracic spine on 04/26/2024 possibly going later on this afternoon on 04/25/2024. Cardiology consulted for surgical clearance as patient has significant comorbidities and patient is cleared only because benefit outweigh risk of surgery. Chest x-ray shows no acute process Patient has been continued on IV lasix with slow improvement in the sodium levels up to 132. As patient is going for surgery lasix will be transitioned to oral to avoid dehydration as blood pressures in the high 90s to low 100s. Will repeat a BMP in the AM. Home medications reviewed and resumed as appropriate. Plavix is being held at this time in the event surgical intervention is performed Recommend PT/OT therapy evaluation Due to multiple complex medical issues, overall prognosis is guarded The impression and plan of care has been dictated by Lore Espino Nurse Practitioner as directed. Dr. Tessy MD I have performed a history and physical examination and medical decision making of this patient, discussed the same with the dictator, and agree with the dictators assessment and plan as written, documented as a scribe. Based on total visit time, I have performed more than 50% of this visit. Objective - Vital Signs Vital signs: Vital Signs Temp 97.8 F 04/25/24 07:29 Pulse 70 04/25/24 07:29 Resp 18 04/25/24 07:29 BP 110/62 04/25/24 07:29 Pulse Ox 95 04/25/24 07:29 FiO2 Intake & Output 04/24/24 04/25/24 04/25/24 18:59 06:59 18:59 Intake Total 358 240 Output Total 700 Balance -342 240 Weight 76 kg Intake: Oral 358 240 Output: Urine 700 Other: Voiding Method Toilet Toilet - Labs CBC & Chem 7: 04/25/24 02:51 04/25/24 02:51 Labs: Abnormal Lab Results - Last 24 Hours (Table) 04/25/24 Range/Units 02:51 Monocytes # 1.02 H (0.20-1.00) X 10*3/uL Eosinophils # 0.45 H (0.04-0.35) X 10*3/uL Assessment and Plan Time with Patient: Less than 30
--- NOTE | 2024-04-25 12:04 | P.PN ---
Subjective Progress Note Date: 04/24/24 04/24/2024: Patient was seen for a follow-up. Patient is sitting in the bed comfortably. Offers no new complaints. Continues to have some heavy feeling in the arms. 04/23/2024: Patient initially seen by Dr. Samy Guadalupe. Please refer to his note for details. Patient is a 79-year-old female, who had transient episode of weakness and numbness. Cervical myelopathy was suspected. Patient has history of previous neck surgery. Orthopedics on board. Patient at present is sitting in the recliner. Patient states that she has history of neck surgery with placement of cage 7 y ears ago. Patient states that her arms feel like they are "50 pounds weight on each". This has been progressing for last "7 years", progressively getting worse. Patient states her feet feels off and she has "muscle cramps all over". Her hands and arms are numb. Feet also feels half-asleep. Some of the workup during this hospital visit consisted of: CBC with differential is unremarkable Sodium is 128 and the repeated is 127. On 03/04/2024 was as low as 119. CRP is less than 0.5. Calcium, magnesium, creatinine is within normal limits TSH: 2.45 B12: 587 CT of the head is reported as age-related atrophy and chronic small vessel ischemic change without acute intracranial process seen at this time. I personally reviewed the CT and agree with that. CT cervical: Surgical changes from the anterior cervical fusion C3-C7. Foraminal narrowing C4-C5 and C6-C7 Objective - Vital Signs Vital signs: Vital Signs Temp 98.5 F 04/24/24 13:05 Pulse 72 04/24/24 15:13 Resp 16 04/24/24 13:05 BP 111/66 04/24/24 13:05 Pulse Ox 96 04/24/24 13:05 FiO2 Intake & Output 04/24/24 04/24/24 04/25/24 06:59 18:59 06:59 Intake Total 1981 358 Output Total 300 700 Balance 1682 -342 Weight 74 kg Intake: Oral 1981 358 Output: Urine 300 700 Other: Voiding Method Toilet Toilet - Exam Patient's mental status, speech and language functions are normal. Cranial nerves are normal. On muscle strength testing the strength is completely normal in the upper extremities in deltoid, biceps, triceps, plant operations coordinator bilaterally. In the lower limbs, her hip flexion is 4+ right, 5-left, but ankles are normal bilaterally. Reflexes are (right/left) biceps 3/2+, brachioradialis 3/2+, knees 3/3, ankles 2+/2+ and plantars are upgoing bilaterally. Sensory to touch is equal. Patient does have multiple bruises in the arms. - Labs CBC & Chem 7: 04/25/24 02:51 04/25/24 02:51 Assessment and Plan Assessment: This is a 79-year-old woman with multiple medical issues including skin cancer who presents to the emergency department because of episode of bilateral upper and lower extremity weakness and she fell yesterday felt like Jell-O as well as complaining of left neck pain and less of occipital pain. She has history of surgery in which she had a cage placed about 5 years ago. She was recently discharged with hyponatremia and congestive heart failure and she stated that she was discharged about 2 days ago. Transient episode of bilateral upper lower extremity weakness with numbness seems more cervical myelopathy. On examination has upper and lower extremity hyperreflexia and +ve Lau sign bilaterally. Cervicogenic cephalgia. Cannot rule out left occipital neuralgia. No evidence of brain mets. Hyponatremia and currently sodium is 127 on 03/04/2024 her sodium was as low as 119 and was recently here in our facility and improved to 132 on 04/16/2024. History of stroke/TIA and she stated happened as a kid Congestive heart failure History of skin cancer History of coronary artery disease status post CABG History of chronic neck pain and had a cage placed about 5 years ago Plan: * MRI of the brain with and without contrast revealed no evidence of intracrani al mass, acute/subacute infarct or abnormal enhancement. Nonspecific white matter changes, likely related to small vessel ischemic disease. I personally reviewed MRI agree with the findings. * MRI of the cervical spine revealed cervical fusion from C3-C6. C6-7 disc preserved in height. No cervical stenosis or cervical cord abnormality. Multilevel neural foraminal stenosis. I personally reviewed MRI agree, and there is probable stenosis at high cervical spine at C2 level, although uncertain to its severity.. 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 Orthopedic surgery are planning surgical intervention that consists of occipital to T2 posterior decompression and fusion, that has been scheduled for 04/26/2024. * Patient is on Plavix 75 mg daily as well as Lipitor 80 mg daily. Plavix on hold for possible surgery * B12 587, TSH 2.45, hemoglobin A1c 5.8. Folic acid 12.30 normal * DVT prophylaxis: We will defer to primary care/orthopedic surgery. * Will defer the rest of the medical management to primary and other specialist next
[2024-04-25 13:48] VITALS: BMI 36.2
[2024-04-25] MEDS: IV FLUID CONTINUATION 1,000 ML IV ONE ×3 (14:21→15:48)
[2024-04-25] MEDS: MIDAZOLAM 2 MG/2 ML VIAL IV ONE (14:30)
--- NOTE | 2024-04-25 14:33 | P.PN ---
Progress Note - Text Progress Note Date: 04/25/24 Spine Surgery Clinical and Risk Review Becky Alvarenga is a 79 yo female presenting for evaluation of UE weakness, UE paresthesias, pain, neck pain, debility, inability to perform ADLs . It was my pleasure to have seen and examined Becky Alvarenga. In our visit today we have had a chance to go over subjective complaints, physical examination findings and treatments including the natural course history without intervention and various interventional options. The patients imaging demonstrates Severe spondylosis with ASD O-C1, C1-2 and C2- 3 s/p C3-7 ACDF with plate failure C3-4, adjacent level encroachment, collpase and stenosis with myelomalacial changes. There is stenosis around the C1-2 and C2-3 region with severe joint collapse between OC and C1-2 joints. No fractures noted at this time. No lesions. . On physical exam, Becky Alvarenga demonstrates UE weakness, LE weakness in ability to perform ADLs due to debility, neck pain, severe and myelopathy. * +Lau's b/l * +clonus 8 beats b/l * Neg babinski * 4/5 RUE all major muscle groups * 4/5 LUE all major muscle groups except for director of purchasing, bicep and wrist extension 3/5 * BLE show 4/5 all major muscles groups * 3/4 DTR all UE and LE * 2/4 distal pulses all * SILT C5-T1 except for dermatomal deficits on LUE in the C2-3 region as well as C5-6 b/l. * Myelopathic gait, fine motor disruption and not intact Diadokinesis. I have explained to the patient that as their condition progresses it will cause further neurological deficits and eventual paralysis. Based on the patients imaging, physical exam, and the rapid progression and disabling nature of their symptoms, at this time I recommend surgery in the form or a: OCCIPUT TO T2 DECOMPRESSION AND FUSION WITH STABILIZATION. I discussed the risk and benefits of this procedure at length with Becky Alvarenga. The patieNT AND FAMILY agreed to considered pursuing the procedure abovementioned. Prior to surgery, she should follow up with her PCP (Cardio, ID, IM etc) for clearance. Questions were invited and answered, and the patient wishes to proceed as outlined below. Currently, I am recommendin. OCCIPUT TO T2 DECOMPRESSION AND FUSION WITH STABILIZATION 2. Follow up with PCP for surgical clearance 3. Review of surgical risks and benefits as well as an educational packet on the proposed surgical procedure. Risks: All surgical procedures come with inherent risks, including those related to positioning, anesthesia, intraoperative findings, and postoperative complications. It is important to understand that surgery does not come with any guarantee of a successful outcome as complications and adverse events are always possible. The patient was given a handout in office today discussing the surgical procedure and risks associated with the intervention, both of which were discussed with the patient. These risks include but are not limited to the following: * Experiencing same, different or even worse symptoms in back, neck, arms, or legs compared to before surgery. * Requiring further surgery or other forms of treatment presently or at some time in the future at same or other levels of the intended spine surgery. * On an extreme but fortunately relatively rare basis severe complication such as blindness, stroke, heart attack, temporary and/or permanent nerve injury, paralysis, coma, or may occur, sometimes without known ex planation. * Surgical complications may include but are not limited to risk of infection, fluid accumulation in the surgical dissection site, including a seroma or hematoma, that requires additional surgery, wound drainage, bleeding, new numbness or weakness, vision changes/loss, spinal fluid leakage, non-healing and/or infected incision, headaches, difficulty or inability to swallow, hoarseness, hemopneumothorax, pneumothorax, impotence, retrograde ejaculation, vaginal dryness; injury to nerves, spinal cord, blood vessels, lymphatics or other vital organs (i.e., bowel injury, injury to the great vessels); heterotopic bone formation; complications related to the hardware such as screws, rods, cages including misplaced hardware, device failure, instrumentation at the wrong spine level, hardware fracture/breakage, or hardware loosening; vertebral failure of the spinal column above or below the newly placed hardware; retained surgical instrumentations or devices and the need for further surgery. * Medical risks of the planned spine surgery include but are not limited to generalized Infections to the whole body or local areas outside of the surgical site (sepsis), heart attack, bleeding, anaphylaxis, meningitis, seizure, epilepsy, hearing loss, burn browne, laceration of the head or other areas of the body, bruising, hypersensitivity of the skin, bladder over distension; allergic reaction; shoulder injury related to positioning; fat, blood and air clots to other areas of the body like heart, lungs, brain; failure of internal organs such as lungs, kidneys, liver and excessive bleeding. If blood transfusions are necessary, note that transfusions may cause intolerance reactions such as anaphylaxis or other complex reactions. * Despite best efforts, the results of spine surgery might not heal in terms of bone, soft tissues such as skin, fascia, ligaments, and joints. Additionally, in order to achieve best possible results, spine surgery may be carried out beyond the initially planned levels and involve decompression, fusion including insertion of hardware at levels other than the original intended area of surgical interest change some portions of the procedure in order to ensure the best possible outcomes. * With spine surgery and spinal fusion, there are different off label uses of instrumentation (devices, implants and hardware) as well as biological substances (bone morphogenic proteins, demineralized bone matrix) as well as using extra bone from allograft sources (i.e. cadaver bone) or autograft (iliac crest bone, ribs, or the spine itself). The patient has been given information about these practices and their inherent risks and benefits. The patient has had a chance to review all the listed information, has been given print outs detailing this information, and has had all his/her questions answered to their satisfaction. It was my pleasure to have seen and examined Becky Alvarenga. In our visit today we have had a chance to go over my understanding of our patient's current condition, the natural course history without intervention and various interventional options. Questions were invited and answered, and the patient wishes to proceed as outlined above. I have seen and examined the patient for 25 minutes and we have spent more than 50% of the time in repeat and detailed counseling about the patient's condition, its natural course history with out and as much as can be predicted with surgery and re-review of various surgical treatment options. In conclusion, Becky Alvarenga and AND FAMILY requested we proceed with the above suggested surgery and are willing to accept risks and limitations of the suggested surgery as nature of the disease process and our best attempts at treatment for the condition. Thank you again for allowing us to be part of your patient's care. Please don't hesitate to contact me if you have any further questions. Signed and authenticated by: Paul [facility] [address] [place] [address]
[2024-04-25] MEDS: ONDANSETRON 4 MG/2 ML VIAL IVP STA (14:47)
[2024-04-25] MEDS ORDERED: TRANEXAMIC 1,000 MG/100ML-NACL 1,000 MG in SALINE 1 100ML.BAG IVPB PRN (15:28)
[2024-04-25] MEDS ORDERED: ONDANSETRON 4 MG/2 ML VIAL IVP PRN (15:31)
[2024-04-25] MEDS ORDERED: bisacodyL 10 MG SUPP RECTAL PRN (15:31)
[2024-04-25] MEDS ORDERED: NA PHOS,M-B/NA PHOS,DI-BA 133 ML ENEMA RECTAL PRN (15:31)
[2024-04-25] MEDS ORDERED: TRANEXAMIC 1,000 MG/100ML-NACL PREMIX BAG ONE (15:49)
[2024-04-25] MEDS ORDERED: MIDAZOLAM 2 MG/2 ML VIAL ONE (15:49)
[2024-04-25] MEDS ORDERED: ONDANSETRON 4 MG/2 ML VIAL ONE (15:49)
[2024-04-25] MEDS ORDERED: ALBUMIN HUMAN 5% (25gm) 500 ML VIAL IVPB ONE (15:49)
[2024-04-25] MEDS ORDERED: SUGAMMADEX SODIUM 200 MG/2 ML SDV IV ONE (15:49)
[2024-04-25] MEDS ORDERED: LIDOCAINE 1% INJ 10MG/ML (20 ML MDV) ONE (15:49)
[2024-04-25] MEDS ORDERED: HYDROmorphone (PF) 1 MG/ML ONE (15:49)
[2024-04-25] MEDS ORDERED: ePHEDrine 50 MG/ML 1 ML VIAL ONE (15:49)
[2024-04-25] MEDS ORDERED: PHENYLEPHRINE-0.9% NACL SYG 1,000 MCG/10 ML SYRINGE ONE (15:49)
[2024-04-25] MEDS ORDERED: SUCCINYLCHOLINE CHLORIDE 200 MG/10 ML VIAL IV ONE (15:49)
[2024-04-25] MEDS ORDERED: PHENYLEPHRINE 10 MG/ML VIAL ONE (15:49)
[2024-04-25] MEDS ORDERED: fentaNYL (PF) 50 MCG/ML 2 ML AMP ONE (15:49)
[2024-04-25] MEDS ORDERED: PROPOFOL 10 MG/ML 20 ML VIAL IV ONE (15:49)
[2024-04-25] MEDS ORDERED: ROCURONIUM 10 MG/ML (5 ML VIAL) IV ONE (15:49)
[2024-04-25] MEDS: SODIUM CHLORIDE 0.9% 100 ML with ceFAZolin 2,000 MG IV ONE (15:53)
[2024-04-25] MEDS: GENTAMICIN 80 MG in SODIUM CHLORIDE 0.9% IRRIGATIO 3,000 ML IRRIGATION ONE (16:44)
[2024-04-25] MEDS: THROMBIN (BOVINE) 5,000 UNIT VIAL TOPICAL ONE (16:44)
[2024-04-25] MEDS: ceFAZolin 3,000 MG in SODIUM CHLORIDE 0.9% IRRIGATIO 3,000 ML IRRIGATION ONE (16:44)
[2024-04-25] MEDS: LACTATED RINGERS 1,000 ML IV ONE ×2 (18:50→20:10)
[2024-04-25] MEDS: VANCOMYCIN 1,000 MG VIAL MISCELLANE ONE (19:28)
[2024-04-25] MEDS: HYDROmorphone 0.5 MG/0.5 ML SYRINGE IVP PRN (21:28)
--- NOTE | 2024-04-25 21:40 | P.ANPRN ---
Procedure Note - Anesthesia - Invasive Line Left Central Line Time Out Performed: Yes Date of Procedure: 04/25/24 Time of Procedure: 15:32 Location of Patient: PreOp Preparation: Sterile Prep, Sterile Dressing Central Line Location: Internal Jugular Ultrasound Used: No Purpose - Visualization and Identification of Vasculature: No Image Stored and Saved: No Narrative: Invasive line placement per sterile protocol utilized.
--- NOTE | 2024-04-25 21:40 | P.ANPRN ---
Procedure Note - Anesthesia - Invasive Line Left Arterial Line Time Out Performed: Yes Date of Procedure: 04/25/24 Time of Procedure: 14:36 Location of Patient: PreOp Preparation: Sterile Prep, Sterile Dressing Arterial Line Location: Briachial Ultrasound Used: No Purpose - Visualization and Identification of Vasculature: No Image Stored and Saved: No Narrative: Invasive line placement per sterile protocol utilized.
--- NOTE | 2024-04-25 21:51 | XR ---
EXAMINATION TYPE: XR cervical spine limited, FL guidance operating room DATE OF EXAM: 04/25/2024 9:36 PM COMPARISON: Pre Operative Images if available both CT/MRI or plain film CLINICAL INDICATION: Female, 79 years old with history of CERVICAL FUSION; TECHNIQUE: XR cervical spine limited, FL guidance operating room, multiple fluoroscopic images provid ed for procedure. Total fluoroscopy time: 1 min 53 sec Total submitted images to PACS: 5 DAP: 11.78 mGym2 Gycm2 uGym2 cGycm2 or equivalent. FINDINGS: Fluoroscopic images during internal fixation/arthroplasty demonstrate fixation hardware in appropriat e position. Hardware appears intact. No immediate complication identified. IMPRESSION: 1. No evidence for intraoperative complication. 2. Please see the operative/procedural note for further details. [facility], , 04/25/2024 9:49 PM
[2024-04-25 22:34] LABS: Glucose,Whole Blood 137 mg/dL (70-110)
[2024-04-25] MEDS: POTASSIUM CHLORIDE 10 MEQ in WATER FOR INJECTION 1 100ML.BAG IVPB STA (22:51)
[2024-04-25] MEDS: NOREPINEPHRINE 4 MG in SODIUM CHLORIDE 0.9% 250 ML IV SCH (23:05)
[2024-04-25] MEDS: KETOROLAC 15 MG/ML 1 ML VIAL IVP SCH (23:05)
[2024-04-25 23:18] LABS: African American GFR (CKD) >90 (>60 ml/min/1.73 sqM); Anion Gap 0 mmol/L; Blood Urea Nitrogen 14 mg/dL (7-17); Calcium 7.8 mg/dL (8.4-10.2); Carbon Dioxide 26 mmol/L (22-30); Chloride 104 mmol/L (98-107); Glucose 130 mg/dL (74-99); Non-African American GFR(CKD) 86 (>60 ml/min/1.73 sqM); Potassium 3.6 mmol/L (3.5-5.1); Sodium 130 mmol/L (137-145)
--- NOTE | 2024-04-25 23:32 | XR ---
EXAMINATION TYPE: XR chest 1V portable DATE OF EXAM: 04/25/2024 CLINICAL HISTORY: Increased oxygen demand. TECHNIQUE: Single AP portable semiupright view of the chest is obtained. COMPARISON: Chest x-ray from 3 days earlier FINDINGS: Anterior fusion plate in the cervical spine is partially imaged on the prior. There is new long segment posterior fusion device partially imaged in the cervical spine. Overlying mediastinal c lips redemonstrated. Left atrial appendage clip redemonstrated. Persistent cardiomegaly with more pro minent mild to moderate central vascular congestion and interstitial edema bilaterally. IMPRESSION: Persistent cardiomegaly with more prominent mild to moderate central vascular congestion and interstitial edema bilaterally. Findings consistent with CHF exacerbation/fluid overload state. [facility], , 04/25/2024 11:30 PM
[2024-04-25] MEDS: DEXAMETHASONE SOD PHOSPHATE 10 MG/ML 1 ML VIAL IVP STA (23:52)
[2024-04-25] MEDS: DEXAMETHASONE SOD PHOSPHATE 4 MG/ML 1 ML VIAL IVP SCH (23:53)
[2024-04-26] MEDS: POTASSIUM CHLORIDE 10 MEQ in WATER FOR INJECTION 1 100ML.BAG IVPB SCH (00:15)
[2024-04-26] MEDS: FUROSEMIDE 10 MG/ML 2 ML VIAL IV STA (00:30)
--- NOTE | 2024-04-26 03:54 | P.CNPUL ---
History of Present Illness Consult date: 04/26/24 Requesting physician: Paul Butterfield Reason for consult: other (Postoperative posterior cervical decompression and fusion) Chief complaint: Headache, cervical level radiculopathy symptoms History of present illness: Patient is a 79-year-old female with past medical history significant for sal nary artery disease, heart failure, valvular heart disease, CVA/TIA, hyperlipidemia, hypertension, prior C-spine surgery, among other things. She presented to the emergency department back on 04/19/2024 with a chief complaint of left occipital headache and associated cervical radiculopathy symptoms. CT of the cervical spine demonstrated previous postsurgical changes and anterior cervical fusion of C3-C7 and foraminal narrowing of C4-C5 and C6-C7. Cervical spine MRI demonstrated multilevel neural foraminal stenosis at levels of C3-C6. Brain MRI did not show any acute findings. Patient has since been evaluated by orthopedic surgery. Patient underwent occiput to T2 posterior cervical deco mpression fusion late last night. She was sent to the intensive care unit for recovery. Patient is currently in room 267, she was extubated in recovery. She is currently drowsy, but able to answer all my questions appropriately. Her right upper extremity is flaccid. The surgeon was made aware, and patient was given a dose of Decadron. Patient was also started on norepinephrine to increase spinal cord perfusion pressure. Levophed currently on 0.02 mcg/kg/min. C-spine x-ray postoperatively did not show any evidence of intraoperative complications. She is on 8 L high flow cannula. She is tachypneic. Denies significant shortness of breath. Postoperative chest x-ray shows low lung volumes with increased interstitial pattern and cardiomegaly. She is currently receiving a pack of PRBCs. Patient will be given a dose of Lasix. There is a Hemovac originating from the left cervical region. There is also a wound VAC in place with no drainage. Preoperative CBC: WBC count 9, hemoglobin 13.9, hematocrit 42, platelets 258. Preoperative CMP: Sodium 132, potassium 4.1, chloride 96, serum bicarb 24, BUN 18, creatinine 0.9, glucose 100. LFTs unremarkable. Current vital signs temperature 97.9 F, heart rate 97 bpm, blood pressure 127/78 mmHg, respiratory rate in the high 20s, SpO2 97% on 9 L high flow. Patient will undergo postoperative CT of the cervical spine. Review of Systems Constitutional: Denies chills, Denies fever Ears, nose, mouth and throat: Denies headache, Denies neck fullness/pressure, Denies sore throat Cardiovascular: Denies chest pain, Denies orthopnea, Denies palpitations, Denies paroxysmal nocturnal dyspnea Respiratory: Denies congestion, Denies cough, Denies dyspnea, Denies hemoptysis, Denies home oxygen, Denies wheezing Gastrointestinal: Denies abdominal pain, Denies nausea, Denies vomiting Genitourinary: Denies dysuria Musculoskeletal: Reports arm numbness/tingling, Reports limitation of motion Integumentary: Denies rash Neurological: Reports headaches, Reports numbness, Reports paralysis, Denies change in mentation, Denies confusion, Denies paresthesias, Denies seizures, Denies visual changes Psychiatric: Denies anxiety, Denies depression Past Medical History Past Medical History: Atrial Fibrillation, Coronary Artery Disease (CAD), Cance r, Heart Failure, CVA/TIA, Hyperlipidemia, Hypertension, Osteoarthritis (OA) Additional Past Medical History / Comment(s): skin cancer with removals, arthritis multiple joints, back and cervical pain, ?TIA A teens-shows up on scan?, PULMONARY FIBROSIS, HAD A KIDNEY FAILURE IN THE ICU. SEPSIS FOLLOWING OPEN HEART SURGERY- WAS IN HOSPITAL FOR 5 MONTHS History of Any Multi-Drug Resistant Organisms: None Reported Past Surgical History: Cardiac Valve Replacement, Cholecystectomy, Coronary Bypass/CABG, Heart Catheterization, Tonsillectomy, Tubal Ligation Additional Past Surgical History / Comment(s): 2 CABG, 2 cardiac caths without intervention, bilateral cataract removal with lens implants, skin cancer removals, cyst removed from neck, colonoscopy, cervical fusion, skin graft tip of nose Past Anesthesia/Blood Transfusion Reactions: No Reported Reaction Additional Past Anesthesia/Blood Transfusion Reaction / Comment(s): Pt has never received blood. Smoking Status: Former smoker - Past Family History Brother(s) Family Medical History: Coronary Artery Disease (CAD) Additional Family Medical History / Comment(s): "bad heart" aneurysm Sister(s) Family Medical History: Cancer Additional Family Medical History / Comment(s): breast cancer Mother Family Medical History: Cancer, Coronary Artery Disease (CAD) Additional Family Medical History / Comment(s): Lymphoma, had a pacemaker. Mother at the age of 92yrs. Father Family Medical History: Coronary Artery Disease (CAD), Myocardial Infarction ([place]) Additional Family Medical History / Comment(s): Father of a [place] at the age of 63 yrs, diagnosed with CAD in his early 50s. Medications and Allergies Home Medications Medication Instructions Recorded Confirmed Type Clopidogrel [Plavix] 75 mg PO DAILY #30 tab 08/19/20 04/19/24 Rx Ibuprofen [Motrin] 800 mg PO Q8H PRN 10/26/21 04/19/24 History Ipratropium-Albuterol Nebulize 3 ml INHALATION RT-TID PRN 10/26/21 04/19/24 History [Duoneb 0.5 mg-3 mg/3 ml Soln] Baclofen 10 mg PO DAILY 04/03/23 04/19/24 History Fluticasone/Umeclidin/Vilanter 1 puff INHALATION RT-DAILY 03/03/24 04/19/24 Hist ory [Trelegy Ellipta 100-62.5-25] Rosuvastatin Calcium [Crestor] 40 mg PO DAILY 04/13/24 04/19/24 History busPIRone HCL 5 mg PO BID 04/13/24 04/19/24 History Dapagliflozin Propanediol [Farxiga] 10 mg PO DAILY 30 Days #30 tab 04/16/24 04/19/24 Rx Furosemide [Lasix] 40 mg PO BID 30 Days #60 tab 04/16/24 04/19/24 Rx Metoprolol Succinate (ER) [Toprol 50 mg PO DAILY #60 tab 04/16/24 04/19/24 Rx XL] Spironolactone [Aldactone] 12.5 mg PO DAILY 30 Days #30 tab 04/16/24 04/19/24 Rx Allergies Allergy/AdvReac Type Severity Reaction Status Date / Time adhesive Allergy blisters Verified 04/19/24 20:46 latex Allergy Rash/Hives Verified 04/19/24 20:46 Physical Exam Vitals: Vital Signs Temp Pulse Pulse Resp BP BP BP 04/26/24 00:30 90 15 125/60 04/26/24 00:15 89 16 122/57 04/26/24 00:00 97.9 F 90 14 139/58 04/25/24 23:59 97.9 F 97 22 127/78 04/25/24 23:45 92 15 125/63 04/25/24 23:30 91 19 124/60 04/25/24 23:00 99 16 97/56 04/25/24 22:45 88 20 95/48 04/25/24 22:30 68 H 04/25/24 22:15 106 H 17 132/59 04/25/24 22:13 104 H 21 113/43 04/25/24 22:02 95 19 132/59 04/25/24 21:47 91 21 114/54 04/25/24 21:42 97.4 F L 90 21 129/59 04/25/24 21:32 97 F L 92 20 153/62 04/25/24 21:13 96.6 F L 84 22 103/56 04/25/24 15:42 86 16 129/64 04/25/24 14:49 79 16 102/56 04/25/24 14:07 97.7 F 95 16 139/60 04/25/24 12:38 72 04/25/24 12:29 72 04/25/24 12:13 98 F 100 18 105/64 04/25/24 09:09 72 04/25/24 08:58 72 04/25/24 07:29 97.8 F 70 18 110/62 04/25/24 02:10 97.6 F 84 15 97/70 Pulse Ox 04/26/24 00:30 100 04/26/24 00:15 94 L 04/26/24 00:00 97 04/25/24 23:59 99 04/25/24 23:45 99 04/25/24 23:30 93 L 04/25/24 23:00 95 04/25/24 22:45 04/25/24 22:30 88 L 04/25/24 22:15 97 04/25/24 22:13 96 04/25/24 22:02 98 04/25/24 21:47 98 04/25/24 21:42 04/25/24 21:32 99 04/25/24 21:13 99 04/25/24 15:42 99 04/25/24 14:49 97 04/25/24 14:07 100 04/25/24 12:38 04/25/24 12:29 04/25/24 12:13 04/25/24 09:09 04/25/24 08:58 04/25/24 07:29 95 04/25/24 02:10 97 Intake and Output 04/25/24 04/25/24 04/26/24 14:59 22:59 06:59 Intake Total 500 4042 456 Output Total 1640 255 Balance 500 2402 201 Intake: IV 500 3725 146 0.9 KVO 20 40 Potassium Chloride 10 meq 100 100 In Water For Injection 1 100ml.bag @ 100 mls/hr IVPB ONCE STA Rx#: [id number] Pressure Bag 3 6 Blood Product 317 310 Rc As-1 Unit 0 310 [id number] Output: Urine 840 255 Estimated Blood Loss 800 Other: Weight 76 kg ABP, PAP, CO, CI - Last 8 Hours Arterial Blood Pressure 95/40 Arterial Blood Pressure 89/33 GENERAL EXAM: Drowsy, 79-year-old female, c-collar in place HEAD: Normocephalic and atraumatic EYES: Normal reaction of pupils, equal size. NOSE: Clear with pink turbinates. THROAT: No erythema or exudates. NECK: No masses, no JVD. Left IJ central line catheter CHEST: No chest wall deformity. Old sternotomy incision LUNGS: Equal air entry with no crackles, wheeze, rhonchi or dullness. On high flow 8 L nasal cannula, tachypneic, appears dyspneic. CVS: S1 and S2 normal with no grade 2 systolic murmur, regular rhythm. No extra heart sounds ABDOMEN: No hepatosplenomegaly, active bowel sounds, no guarding or rigidity. SPINE: Cervical collar in place, cervical level Hemovac compressed with minimal sanguinous output and wound VAC with no drainage in chamber. SKIN: No rashes CENTRAL NERVOUS SYSTEM: No facial asymmetry, tongue protrudes midline, no aphasia/dysphasia, no vision changes, conjugate gaze. Right shoulder is weak. Right arm is completely flaccid with reduced sensation. Remaining extremities are weak strength 4/5. No ataxia out of proportion to weakness. Patellar DTRs 1+ bilaterally EXTREMITIES: No peripheral edema. Pulses 2+ throughout. Results - Laboratory Findings CBC and BMP: 04/26/24 04:06 04/26/24 04:06 PT/INR, D-dimer PT 10.2 sec (10.0-12.5) 04/25/24 08:51 INR 0.9 (<1.2) 04/25/24 08:51 Abnormal lab findings: Abnormal Labs 04/19/24 04/20/24 04/20/24 16:46 11:23 11:23 WBC Monocytes # Eosinophils # Sodium 128 L 127 L Chloride 93 L 92 L Anion Gap BUN 20 H BUN/Creatinine Ratio Glucose POC Glucose (mg/dL) Osmolality 271 L Calcium Total Protein Urine Osmolality Crossmatch 04/20/24 04/20/24 04/20/24 11:30 16:12 20:19 WBC Monocytes # Eosinophils # Sodium 127 L 127 L Chloride 93 L 94 L Anion Gap BUN 18 H BUN/Creatinine Ratio Glucose 118 H 107 H POC Glucose (mg/dL) Osmolality Calcium Total Protein Urine Osmolality 298 L Crossmatch 04/21/24 04/21/24 04/23/24 04:33 04:33 03:47 WBC 10.13 H Monocytes # 1.15 H Eosinophils # Sodium 129 L 130 L Chloride 90 L 92 L Anion Gap 14.60 H 12.10 H BUN BUN/Creatinine Ratio Glucose POC Glucose (mg/dL) Osmolality Calcium Total Protein Urine Osmolality Crossmatch 04/25/24 04/25/24 04/25/24 02:51 02:51 08:39 WBC Monocytes # 1.02 H Eosinophils # 0.45 H Sodium 132 L Chloride Anion Gap BUN BUN/Creatinine Ratio 20.67 H Glucose POC Glucose (mg/dL) Osmolality Calcium Total Protein 6.0 L Urine Osmolality Crossmatch See Detail 04/25/24 04/25/24 22:32 22:50 WBC Monocytes # Eosinophils # Sodium 130 L Chloride Anion Gap BUN BUN/Creatinine Ratio Glucose 130 H POC Glucose (mg/dL) 137 H Osmolality Calcium 7.8 L Total Protein Urine Osmolality Crossmatch - Diagnostic Findings Chest x-ray: image reviewed Assessment and Plan Assessment: Status postoperative day #1 following a occiput to T2 posterior cervical decompression fusion Right arm weakness Multilevel neural foraminal stenosis at levels of C3-C6 and cervical radiculopathy symptoms Acute hypoxemic respiratory failure, postoperative chest x-ray showing low lung volumes, cardiomegaly, interstitial prominence. History of asthma, stable History of prior anterior cervical spine decompression and fusion History of CVA/TIA History of hyperlipidemia History of hypertension History of diastolic heart failure and valvular heart disease, recent echocardiogram done February 2024 estimating a left ventricular ejection fraction of 55 to 60% as well as moderate aortic stenosis History of coronary artery disease, status post double vessel CABG Plan: Patient is currently recovering in the intensive care unit There is some postoperative right upper extremity weakness/deficit. Surgeon is aware. Patient did receive a dose of Decadron. Also, started on norepinephrine to increase spinal cord perfusion pressure. Asymmetric right arm weakness seems to be improving Patient is going to undergo postoperative CT of the C-spine Continue supplemental oxygen, currently on 8 L high flow nasal cannula Chest x-ray showing some fluid overload and congestion Give 1 additional dose of Lasix 20 mg IV push now GI prophylaxis: Protonix DVT prophylaxis: SCDs are on We will continue to follow, patient is being monitored in the intensive care unit. I have personally seen and examined the patient, performed the documentation and the assessment and plan as written. Number of minutes spent on the visit:20 This is a joint evaluation that was done along with the nurse practitioner. This is a 79-year-old female patient with multiple medical problems and comorbidities who underwent anterior cervical fusion, multiple levels as the patient was having neck pain and weakness and extremities. Postop, the patient was brought into the intensive care for further monitoring. The patient is currently wearing a soft neck collar. She is on 4 L of oxygen by nasal cannula with a pulse ox of 93%. She was given a unit of packed RBC by the surgical team yesterday. The Hemovacs from the neck area showed no significant output. The patient is on norepinephrine to maintain blood pressure. Norepinephrine is currently running at 0.08 mcg/kg/min. Sodium levels at 129, BUN is 15 with a creatinine 0.8. Most recent hemoglobin is at 12.5. White cell count is 21. The patient is on Decadron. She is moving extremities without any limitation although she continues to have some weakness in the right upper extremity. Pain is under adequate control and the patient remains on [place] and Toradol on as- needed basis. Home medication resumed. Her previous left-ventricular ejection fraction is within normal limits. However, she is known to have coronary disease, previous bypass surgery, hypertension hyperlipidemia and history of atrial fibrillation. Current cardiac rhythm is sinus. She is known to have COPD maintained on Trelegy Ellipta on outpatient basis in addition to DuoNeb nebulized treatments [id number]. The patient is currently on DuoNeb of chest. Will allow the patient to use Trelegy Ellipta from home. Lasix and Aldactone has been resumed. Time with Patient: Greater than 30
[2024-04-26 04:32] LABS: Basophils % (A) 0 %; Eosinophils % (A) 0 %; HCT 36.5 % (34.0-46.0); HGB 12.6 gm/dL (11.4-16.0); Lymphocytes # (A) 0.4 k/uL (1.0-4.8); Lymphocytes % (A) 2 %; MCH 29.7 pg (25.0-35.0); MCHC 34.4 g/dL (31.0-37.0); MCV 86.1 fL (80.0-100.0); Mean Platelet Volume 8.7; Monocytes # (A) 0.6 k/uL (0-1.0); Monocytes % (A) 3 %; Neutrophils # (A) 21.4 k/uL (1.3-7.7); Neutrophils % (A) 95 %; Platelet Count 220 k/uL (150-450); RBC 4.24 m/uL (3.80-5.40); RDW 14.3 % (11.5-15.5); WBC 22.5 k/uL (3.8-10.6)
[2024-04-26 04:37] LABS: Basophils % (A) 0 %; Eosinophils % (A) 0 %; HGB 12.5 gm/dL (11.4-16.0); Lymphocytes # (A) 0.4 k/uL (1.0-4.8); Lymphocytes % (A) 2 %; MCH 29.5 pg (25.0-35.0); MCHC 34.6 g/dL (31.0-37.0); MCV 85.1 fL (80.0-100.0); Monocytes # (A) 0.5 k/uL (0-1.0); Monocytes % (A) 2 %; Neutrophils % (A) 96 %; Platelet Count 218 k/uL (150-450); RBC 4.24 m/uL (3.80-5.40); RDW 14.2 % (11.5-15.5)
[2024-04-26 05:00] LABS: African American GFR (CKD) >90 (>60 ml/min/1.73 sqM); Anion Gap 4 mmol/L; Blood Urea Nitrogen 15 mg/dL (7-17); Calcium 8.4 mg/dL (8.4-10.2); Carbon Dioxide 24 mmol/L (22-30); Chloride 101 mmol/L (98-107); Glucose 133 mg/dL (74-99); Magnesium 1.8 mg/dL (1.6-2.3); Non-African American GFR(CKD) 89 (>60 ml/min/1.73 sqM); Potassium 4.4 mmol/L (3.5-5.1); Sodium 129 mmol/L (137-145)
[2024-04-26] MEDS ORDERED: Magnesium Replacement Protocol 1 EACH MISC MISCELLANE PRN (05:33)
[2024-04-26] MEDS: MAGNESIUM SULFATE-D5W PMX 1 GM in DEXTROSE/WATER 1 100ML.BAG IVPB ONE (05:37)
--- NOTE | 2024-04-26 07:37 | CT ---
EXAMINATION TYPE: CT cervical spine wo con CT DLP: 410.6 mGycm, Automated exposure control for dose reduction was used. DATE OF EXAM: 04/26/2024 5:42 AM COMPARISON: 04/20/2024. CLINICAL INDICATION: Female, 79 years old with history of s/p cervical fusion; PHH, s/p cervical fusi on TECHNIQUE: Axial CT images from the skull base to the inferior aspect of T2 we obtained without intra venous contrast. Coronal and sagittal reformatted images were also reviewed. Contrast used: mL of , (if blank None) Oral contrast used: (if blank None) FINDINGS: Fracture: None. Osseous structures: Postsurgical changes of the spine from the skull base to T2. Hardware appears int act. Laminectomy changes posteriorly. Subjacent gas compatible with surgery with change catheter term inating in the posterior surgical bed. Vertebral alignment: Postsurgical straightening alignment Spinal canal/Neural Foramina: No evidence of significant spinal canal narrowing. No evidence for sign ificant neural foraminal stenosis. Neck soft tissues: Prevertebral soft tissues are within normal limits. Other: The airway is patent. The lung apices are clear. Partially visualized central venous catheter. IMPRESSION: Postsurgical changes with hardware intact. No immediate postop complication. [facility], , 04/26/2024 7:35 AM
--- NOTE | 2024-04-26 08:10 | P.PN ---
Subjective Progress Note Date: 04/26/24 Principal diagnosis: Cervical Myelopathy OC collapse C5 Palsy Pt s/e this AM in the ICU. She is alert and oriented and taking with myself and nursing at bedside. She had and OK night, but was painful. Nursing states to keep her BP up she did need some levo and she responded well to the transfusion. She is getting fluids as well for resuscitation and they are replacing her K, Mg and electrolytes. She had her CT this morning and tolerated well. She is in the hard collar, but it does not fit her well. Her drain is in place and putting out well. Incisional wound vac in place and has good seal. Other than pain overnight, she complains of new weakness in her RUE that is more significant than that before surgery. She states she cannot move her right arm. She does have feeling through the entire arm in all dermatomes, but she has weakness in abduction, bicep, tricep, wrist and surgery technician globally. This is new. No other issues overnight. Objective - Vital Signs Vital signs: Vital Signs Temp 98.1 F 04/26/24 04:00 Pulse 82 04/26/24 07:00 Resp 11 L 04/26/24 07:00 BP 103/60 04/26/24 06:00 Pulse Ox 97 04/26/24 07:00 FiO2 Intake & Output 04/25/24 04/26/24 04/26/24 18:59 06:59 18:59 Intake Total 3502 1964.206 23 Output Total 2945 80 Balance 3502 -980.794 -57 Weight 76 kg 82.5 kg Intake: IV 3502 1207 23 0.9 KVO 180 20 Magnesium Sulfate-D5w Pmx 100 1 gm In Dextrose/Water 1 100ml.bag @ 100 mls/hr IVPB ONCE ONE Rx#: [id number] Potassium Chloride 10 meq 300 In Water For Injection 1 100ml.bag @ 100 mls/hr IVPB ONCE STA Rx#: [id number] Pressure Bag 27 3 Intake, IV Titration 130.206 Amount Norepinephrine 4 mg In 130.206 Sodium Chloride 0.9% 250 ml @ 0.03 MCG/KG/MIN 8. 687 mls/hr IV .Q24H [facility] Rx#:[id number] Blood Product 627 Rc As-1 Unit 310 [id number] Output: Urine 2145 80 Estimated Blood Loss 800 Other: Voiding Method Indwelling Catheter ABP, PAP, CO, CI - Last Documented Arterial Blood Pressure 128/50 - Exam PHYSICAL EXAMINATION: Vitals: Stable, MAP 87 General: Awake, alert, appropriate for age, in no acute distress. HEENT: No unusual neck masses around region of lateral neck triangle, thyroid, supraclavicular groove. [Heart: Regular rate, some ectopy on monitor, no afib or flutter [Lungs: Clear to auscultation bilaterally with no use of accessory muscles.] Extremities: Skin warm and dry without no acute lesions, coloration, temperature, skin intact, no tenderness or erythema. Integument/ Surgical wound: Surgical incisions: CDI, no drainage. Wounds clean and dry. Wound vac in place good suction. Drain in place: 120 cc in drain. Emptied overnight. Palpation: Minor TTP around trapezius region and incision. No flucctuence. No hematoma at this time felt. POSTURAL and MUSCULO-SKELETAL EVALUATION: Laying in bed supine, HOB 45 deg and tolerating well. Gaze appears to be neutral at this time. C collar in place, but does not fit well. Will be getting a new collar today. VASCULAR STATUS : Wrist Pulses: [2/4 bilateral radial and ulnar] Pedal Pulses: [2/4 bilateral DP and PT] Color: [Normal] Edema: [None] NEUROLOGIC EXAMINATION: Mental Status: Awake and alert, fully oriented, with normal attention, concentration and memory, and fluent, appropriate speech. Cranial Nerves: I: Olfactory not tested. II: Visual acuity normal, no visual field deficit noted with confrontation. III,IV: Normal pupillary reflexes & intact extraocular movements without nystagmus. V,: Intact symmetrical facial sensation. VII: Intact symmetrical facial motor movement VIII: Hearing intact. IX,X: Intact gag, swallow, & normal voice. XI: Sternocleidomastoid, trapezius function intact. XII: Tongue midline with normal movements. Motor Exam (0-5/5, N/T) STRENGTH UPPER EXTREMITY * 4-/5 in all major muscle groups of the UE b/l * Except for RUE where she has 2/5 in ABD/BI/TRI/WE/JEWELRY COATER and IO muscles. She has as global RUE C5 palsy at this time and more so C5 palsy. She has motion at the wrist with EXT and FLX but is weak and difficult to control. She has some surgery technician strength and as the night went on nursing states it has gotten better, but still weak. LOWER EXTREMITY * 4+/5 in all major muscle groups of the LE b/l No focal Deficits at this time. REFLEXES Upper Extremity: * RIGHT 1/4 * LEFT 2/4 - less hyperreflexive at this time Lower Extremity: * RIGHT [2]/4 * LEFT [2]/4 Pathological Reflexes Lau's: * RIGHT:ABSENT * LEFT: PRESENT LESS BRISK Babinski: * RIGHT [Absent] * LEFT [Absent] Clonus: * RIGHT: None * LEFT: None SENSORY * Pain and LT sense * C5-T1 b/l intact UE * L2-S1 b/l Intact LE * Dermatomal deficit * None at this time. She stated earlier in the night that she had some deficit in her RUE, but that now she can feel it, but she states it is now the same as the other side when compared to LT and Pain sensation Gait and Functional Evaluation: * NT at this time. - Labs CBC & Chem 7: 04/26/24 04:06 04/26/24 04:06 Labs: Abnormal Lab Results - Last 24 Hours (Table) 04/25/24 04/25/24 04/25/24 Range/Units 02:51 02:51 08:39 WBC (3.8-10.6) k/uL Neutrophils # (1.3-7.7) k/uL Lymphocytes # (1.0-4.8) k/uL Monocytes # 1.02 H (0.20-1.00) X 10*3/uL Eosinophils # 0.45 H (0.04-0.35) X 10*3/uL Sodium 132 L (135-145) mmol/L BUN/Creatinine Ratio 20.67 H (12.00-20.00) Ratio Glucose (74-99) mg/dL POC Glucose (mg/dL) (70-110) mg/dL Calcium (8.4-10.2) mg/dL Total Protein 6.0 L (6.2-8.2) g/dL Crossmatch See Detail 04/25/24 04/25/24 04/26/24 Range/Units 22:32 22:50 03:05 WBC 22.5 H (3.8-10.6) k/uL Neutrophils # 21.4 H (1.3-7.7) k/uL Lymphocytes # 0.4 L (1.0-4.8) k/uL Monocytes # (0.20-1.00) X 10*3/uL Eosinophils # (0.04-0.35) X 10*3/uL Sodium 130 L (135-145) mmol/L BUN/Creatinine Ratio (12.00-20.00) Ratio Glucose 130 H (74-99) mg/dL POC Glucose (mg/dL) 137 H (70-110) mg/dL Calcium 7.8 L (8.4-10.2) mg/dL Total Protein (6.2-8.2) g/dL Crossmatch 04/26/24 04/26/24 Range/Units 04:06 04:06 WBC 21.0 H (3.8-10.6) k/uL Neutrophils # 20.0 H (1.3-7.7) k/uL Lymphocytes # 0.4 L (1.0-4.8) k/uL Monocytes # (0.20-1.00) X 10*3/uL Eosinophils # (0.04-0.35) X 10*3/uL Sodium 129 L (135-145) mmol/L BUN/Creatinine Ratio (12.00-20.00) Ratio Glucose 133 H (74-99) mg/dL POC Glucose (mg/dL) (70-110) mg/dL Calcium (8.4-10.2) mg/dL Total Protein (6.2-8.2) g/dL Crossmatch Assessment and Plan Assessment: RUE C5 AND GLOBAL PALSY (1) Cervical myelopathy with cervical radiculopathy Current Visit: Yes Status: Acute Code(s): G95.9 - DISEASE OF SPINAL CORD, UNSPECIFIED; M54.12 - RADICULOPATHY, CERVICAL REGION SNOMED Code(s): 532502758 (2) Cervical spondylosis with myelopathy and radiculopathy Current Visit: Yes Status: Acute Code(s): M47.12 - OTHER SPONDYLOSIS WITH MYELOPATHY, CERVICAL REGION; M47.22 - OTHER SPONDYLOSIS WITH RADICULOPATHY, CERVICAL REGION SNOMED Code(s): 808006253 (3) Upper extremity weakness Current Visit: Yes Status: Acute Code(s): R29.898 - OTH SYMPTOMS AND SIGNS INVOLVING THE MUSCULOSKELETAL SYSTEM SNOMED Code(s): 579099051 (4) Gait disturbance Current Visit: Yes Status: Acute Code(s): R26.9 - UNSPECIFIED ABNORMALITIES OF GAIT AND MOBILITY SNOMED Code(s): 99797607 (5) Fine motor impairment Current Visit: Yes Status: Acute Code(s): R29.818 - OTHER SYMPTOMS AND SIGNS INVOLVING THE NERVOUS SYSTEM; R29.898 - OTH SYMPTOMS AND SIGNS INVOLVING THE MUSCULOSKELETAL SYSTEM SNOMED Code(s): 811733670 Plan: -Appreciate human resources consultant and team management. -Appreciate ICU management -Activity: OK for OOB. OK for up to chair. Prefer all meals OOB. No Push, PUll, Overhead motions, no bending lifting twisting >5 lbs. TREX arms. Do not pull up by arm. Log roll out of bed. -Daily PT/OT Work on RUE ROM, use it or lose it policy, needs to have stress ball in hand to work surgery technician back. Needs to do PROM of the right shoulder. Needs to work on Wrist extension, Bicep, Tricep function. Mind-Muscle connection. Only way it comes back is with constant work. -C collar at all times. Changed to Soft collar for fit and comfort. -Dressing: Incisional vac 1-2 days then change to regular dressing. -Pain control: Cont IV, PO meds. Push PO meds for more stable multimodal -Meds: reviewed -GI ppx: senna, Miralax -DC ponce when up and about, bedside commode if needed -DVT PPX: Restart @24 hr post op. -Drains: Maintain for now. Record output -Hygiene: Shower daily whether in bed with sponge or in bathroom with help. Maintain dressing clean and dry. Meticulous cleaning after BMs away from incision site -Encourage IS 10x/hr -Dispo: Pending Time with Patient: Greater than 30
[2024-04-26] MEDS: FUROSEMIDE 20 MG TAB PO SCH (08:32)
[2024-04-26] MEDS: HYDROcodone/APAP 7.5-325MG 1 EACH TAB PO PRN (08:33)
[2024-04-26] MEDS: SENNOSIDES-DOCUSATE SODIUM 1 EACH TAB PO SCH (08:33)
[2024-04-26] MEDS: PANTOPRAZOLE 40 MG/10 ML VIAL IVP SCH (08:33)
[2024-04-26 11:58] LABS: Glucose,Whole Blood 141 mg/dL (70-110)
[2024-04-26 16:49] LABS: Glucose,Whole Blood 168 mg/dL (70-110)
[2024-04-26] MEDS: HYDROcodone/APAP 10-325MG 1 EACH TAB PO PRN (21:59)
--- NOTE | 2024-04-26 22:04 | P.OP ---
Date of Procedure: 04/26/24 Preoperative Diagnosis: CERVICAL SPONDYLOTIC MYELOPATHY OCCIPITAL CERVICAL COLLAPSE WITH SPONDYLOSIS UE AND LE WEAKNESS FINE MOTOR DISRUPTION NECK PAIN COMPLEX MEDICAL PATIENT Postoperative Diagnosis: CERVICAL SPONDYLOTIC MYELOPATHY OCCIPITAL CERVICAL COLLAPSE WITH SPONDYLOSIS UE AND LE WEAKNESS FINE MOTOR DISRUPTION NECK PAIN COMPLEX MEDICAL PATIENT Procedure(s) Performed: OCCIPITAL CERVICAL POSTEROLATERAL INSTRUMENTED FUSION C1-2 POSTEROLATERAL INSTRUMENTED FUSION C2-T2 POSTEROLATERAL INSTRUMENTD FUSION OCCIPITAL TO T2 INSTRUMENTATION C2-T1 BILATERAL LAMINECTOMY, PARTIAL MEDIAL FACETECTOMY AND FORAMINOTOMY USE OF IOMN MOD 22: THIS CASE TOOK 80% LONGER THAN ANTICIPATED DUE TO THE EXTENT OF OC AND CERVICAL DISEASE, HIGH TECHNICALITY OF THE CASE AND THE MULTIPLE MEDICAL COMORBID CONDITIONS OF THE PATIENT INCLUDING SEVERE CARDIAC HISTORY, BMI >35, OLIVIA. Anesthesia: GETA Surgeon: Paul Butterfield Barnworker Groom #1: Bishnu Tee (WAS PRESENT AND ASSISTED WITH ALL ASPECTS OF THE CASE FROM POSITION TO DRESSING) Estimated Blood Loss (ml): 800 IV fluids (ml): 3,200 Urine output (ml): 1,100 Pathology: none sent Condition: stable Disposition: ICU Indications for Procedure: Becky Alvarenga is a 79 yo female presenting for evaluation of UE weakness, UE paresthesias, pain, neck pain, debility, inability to perform ADLs . It was my pleasure to have seen and examined Becky Alvarenga. In our visit today we have had a chance to go over subjective complaints, physical examination findings and treatments including the natural course history without intervention and various interventional options. The patients imaging demonstrates Severe spondylosis with ASD O-C1, C1-2 and C2- 3 s/p C3-7 ACDF with plate failure C3-4, adjacent level encroachment, collpase and stenosis with myelomalacial changes. There is stenosis around the C1-2 and C2-3 region with severe joint collapse between OC and C1-2 joints. No fractures noted at this time. No lesions. . On physical exam, Becky Alvarenga demonstrates UE weakness, LE weakness in ability to perform ADLs due to debility, neck pain, severe and myelopathy. * +Lau's b/l * +clonus 8 beats b/l * Neg babinski * 4/5 RUE all major muscle groups * 4/5 LUE all major muscle groups except for mobile sales assistant, bicep and wrist extension 3/5 * BLE show 4/5 all major muscles groups * 3/4 DTR all UE and LE * 2/4 distal pulses all * SILT C5-T1 except for dermatomal deficits on LUE in the C2-3 region as well as C5-6 b/l. * Myelopathic gait, fine motor disruption and not intact Diadokinesis. I have explained to the patient that as their condition progresses it will cause further neurological deficits and eventual paralysis. Based on the patients imaging, physical exam, and the rapid progression and disabling nature of their symptoms, at this time I recommend surgery in the form or a: OCCIPUT TO T2 DECOMPRESSION AND FUSION WITH STABILIZATION. I discussed the risk and benefits of this procedure at length with Becky Alvarenga. The patieNT AND FAMILY agreed to considered pursuing the procedure abovementioned. Prior to surgery, she should follow up with her PCP (Cardio, ID, IM etc) for clearance. Questions were invited and answered, and the patient wishes to proceed as outlined below. Currently, I am recommendin. OCCIPUT TO T2 DECOMPRESSION AND FUSION WITH STABILIZATION Description of Procedure: OCCIPUT-T2 decompression and fusion The patient was seen and examined in the preoperative area. All preoperative protocols were followed. Informed consent was obtained, risks and benefits of the procedure were discussed at length. Risks including bleeding infection damage to the surrounding tissue and risk of reoperation were discussed with the patient. Risk of anesthesia up to and including was discussed with the patient. These are outlined in the risk review. They were willing to accept these risks and all of the risks of surgery. The patient was given a weight- based dose of antibiotics in the form of 2 g Ancef. The patient was seen and evaluated by the anesthesia team who deemed them fit for surgery. The site was marked, the patient was willing to proceed with the procedure. The patient was transferred to the operative suite by the Department of anesthesia. They were then drifted off to sleep by the department anesthesia and GETA was performed. The patient tolerated this well. pre-positioning motors were obtained.Yu in place from the floor. Once confirmation of lines and ventilation Lees head clamp was placed on the patient and secured and the patient was transferred to a [prone Robert table very carefully] with the Lees ingot header the head was secured and placed into an optimal position x- ray confirmed this position. Post-positioning motors remained stable. All bony prominences including wrists, elbows, axilla, chest, hips, and thighs, and feet were padded very well. Special attention was paid to the genitalia and these were padded accordingly. SCDs were placed on bilateral lower extremities and were connected. Arms were well padded and placed tucked at his side thumbs down. Shoulders were gently taped down to the table.. Once in position, again we confirmed good ventilation capabilities and that lines were running appropriately. The patient's posterior cervical spine was then exposed. 1010s were placed outlining the incision site. Standard alcohol was used to clean the incision site and allowed to dry. C-arm was used to biomark the patient and confirm level for incision which was marked with a skin marker. Operative briefing was performed with all teams and everyone in agreement to proceed. The patient was then prepped and draped in a normal sterile fashion. Timeout was then performed and all parties were in agreement with the procedure to be performed. Midline skin incision made over the previously bio-marked area and dissection taken down midline to the SP of C2-T2. Subperiosteal dissection taken out over the lamina and lateral masses of C2-C7 and TVP of T1 and T2. Exposure was then taken up to the C1 posterior arch and up to the inion of the skull. Careful bipolar dissection was done on the underside of the C1 arch to match the lateral exposure on C2. Same was done on the skull. There was exhuberent bone formation between the arch of C1 and C2 lamina but no fusion. This was a pannus like structure with disorganized bone and what appeared to be cystic like structures from this formation due to the severe collapse of OC and C1-2 joints. This obscured the anatomy greatly and careful dissection and imaging had to be used to visualize well. A Michael elevator was used on the skull to carefully peel off the periosteum in this area for a subperiosteal, minimally bloody dissection. A template was used to identify areas of dissection needed laterally. Once this was accomplished, the template was used to bonnie holes for drilling in the skull. Once exposure complete, the wound was irrigated and the C-arm brought in for imaging. A penfield 4 was used to bluntly dissect the medial border of C2 pedicle and placed for guidance. C arm used and a sonya hole made for the starting point. The C2 pedicle was then drilled in 2 mm increments to 18 mm using a ball tip feeler in between each drill session to make sure within the 4 ritchie with a good bottom. Once this was accomplished a screw was selected and placed under lateral fluoroscopic guidance. During screw placement on the left side, there was a shift felt in the Lees ingot header and we took pause to investigate. [facility] was able to run motors and confirmed no changes in status at that time. We found that there was a malfunction in the OC motion locking mechanism and so the head was carefully repositioned and the locking mechanism was secured. The patients head was then positioned with Xray back into optimal position. The pins remained stable. The locking mechanism was backed up and secured with further tape and straps as well as the patient's head to ensure this would not be an issue again. We then placed the screw in C2 without issues. Screw had a good purchase. This was then repeated on the contralateral side. AP confirmed good placement of both screws. We then proceeded to the T1 and T2 screws bilaterally. A highspeed sonya was used to remove the facet joint of C7 and to create a starting point for T1 and similarly, T1 facet for T2. Pedicle finder was then passed into T1 and T2 and imaging taken to confirm placement this was then removed and a tap placed ball-tipped probe was then placed and 4 ritchie of pedicle fell with good bottom. Screw was then measured and placed intoT1 and T2. This is repeated on the contralateral side. Imaging confirmed good placement of all 4 thoracic screws. Attention was then drawn to the base of the skull. Using the template, the screw holes were marked out and drilled using positive stop drill guide and lateral fluoroscopy. 8mm holes were drilled and then advanced by 2 mm until the inner cortex was minimally breached. Ball tip probe was then used to palpate the shelf and measure for a screw. 10mm 8mm and 6mm screws were selected and placed through the plate. They were then secured and had good purchases. Lateral imaging confirmed their length and placement. Plate was midline and inline with the remainder of the construct. The wound was then irrigated. Lateral mass screws were then drilled to 12 mm and placed at each level from C3-6. Each had a good bite. Rods were then sized and selected and cut to length. They were bent accordingly and lordosis and to fit the occiput plate. These were then secured into C2 bilaterally and then sequentially reduced into lateral mass screws and T1 and T2 screws without issues. Then gentle traction was placed on the head to allow for reduction of the C1-2 joint as well as the OC joint due to collapse in this patient. IONM remained stable. Then set screws secured rods into the occipital plate. All set screws were placed and were then final tightened and the position. Bilateral laminectomy, facetectomy and foraminotomies were then done from C2-T1 using high speed sonya, kerrison rongeur and upbiting curette. Bilateral laminotomy troughs were made with sonya followed by curette to release ligamentum. Rongure was then used to gently remove the lamina and facets posteriorly without issues. Meticulous hemostasis was performed after.. Motors were run before and after decompression and they remain stable. Good pulsations of the cord were noted after decompression. Foraminotomies then performed with kerrison rongeur and clean up of the laminectomy site. The wound was then copiously irrigated with 3 L of Ancef irrigation followed by 3 L of gentamicin irrigation followed by 3 L of normal sterile saline. Facet joints were drilled at each level to allow for fusion Surgicel was placed over the dura. MagnetOs were placed in the posterior lateral gutters along with autograft.. This was impacted into position for fusion. 2 g of powdered vancomycin was then placed deep within the wound and a deep drain was placed. We then proceeded with layered closure first in the deep fascia with #1 PDS then in the deep fascia followed by a running #1 stratafix. 0 Vicryl was used in the deep subq fascia and an 0 PDS stratafix used in the subdermal layer. Skin franc then approximated skin edges. The wound edges approximated very well. The wound was then cleaned and dressed sterilely with an operative foam dressing 4 x 4 and Tegaderm. The drain had good suction. The patient was placed in a hard cervical collar. The patient was transferred back to their hospital bed atraumatically. Lees head clamp was removed and pin sites were clear. Drain continued to hold suction. Patient was placed in a hard collar Patient was then awakened and extubated by the department of anesthesia having tolerated the procedure very well with no complications. They were transferred to the postoperative care unit in stable condition.
[2024-04-27 04:26] LABS: HCT 33.5 % (34.0-46.0); HGB 10.9 gm/dL (11.4-16.0); MCH 28.8 pg (25.0-35.0); MCHC 32.5 g/dL (31.0-37.0); MCV 88.4 fL (80.0-100.0); Mean Platelet Volume 7.8; Platelet Count 248 k/uL (150-450); RBC 3.78 m/uL (3.80-5.40); RDW 14.1 % (11.5-15.5); WBC 19.6 k/uL (3.8-10.6)
[2024-04-27 04:52] LABS: African American GFR (CKD) >90 (>60 ml/min/1.73 sqM); Anion Gap 5 mmol/L; Blood Urea Nitrogen 26 mg/dL (7-17); Calcium 8.3 mg/dL (8.4-10.2); Carbon Dioxide 25 mmol/L (22-30); Chloride 101 mmol/L (98-107); Glucose 135 mg/dL (74-99); Non-African American GFR(CKD) 85 (>60 ml/min/1.73 sqM); Potassium 4.5 mmol/L (3.5-5.1); Sodium 131 mmol/L (137-145)
--- NOTE | 2024-04-27 05:53 | P.PN ---
Subjective Progress Note Date: 04/26/24 Patient is a 79-year-old female with CAD, and for, heart failure, CVA/TIA, hyperlipidemia, hypertension presenting with headache and paresthesia. She states that she has been feeling numbness and tingling in both her upper extremities and lower extremities. She also feels numbness and tingling along w ith a headache on the occipital portion of her head. She states these symptoms have been going on for over a week. She states that her arms and legs feel heavy and that it has been constant and has not gone away. Patient denies any exacerbating or relieving factors. She describes her headache aching, burning pain. She was here last week undergoing treatment for congestive heart failure and hyponatremia. Patient reports of ongoing cough for the past month. She reports that there is sputum production. Denies any hemoptysis. Patient also notes of having suspicion of oral thrush likely from her inhalers. Patient reports of denies any fever, chills, syncope, trauma, nausea, vomiting, ab dominal pain, slurred speech. Admits to shortness of breath. EKG independently interpreted shows Brain CT shows age-related atrophic and chronic small vessel ischemic changes without acute intracranial process seen at this time Sodium 128, potassium 4.0 chloride 93, CO2 27, BUN 20, creatinine 0.81. T98.2 F, MS 89, RR 18, BP 96/61, O2 sat 92 percent on room air ED documentation reviewed. 04/21. Patient seen and examined. States sore throat has improved. Still complaining of headache. Blood work done showed WBC 10.13, hemoglobin 713.7, sodium 129, potassium 3.5, BUN 17.1, creatinine 0.9 04/22/2024 Patient seen in follow-up continues to be followed by multiple consultations awaiting to undergo MRI of the brain along with cervical spine with orthopedics following. Cardiology has been consulted for surgical clearance and although considered moderate to high risk given significant comorbidities, patient is willing to proceed with surgery as she continues to have persistent numbness and tingling with paresthesias of the upper extremities along with heaviness. Patient is afebrile with no reports of chest pain or shortness of breath. Patient does have a cough and will obtain a chest x-ray. 04/23/2024 Patient is seen and evaluated in follow-up today and per orthopedics is te ntatively scheduled for surgery on 04/26/2024. Patient continues to report paresthesia and heaviness of her upper extremities with constant tingling. Cardiology consulted for medical clearance. Chest x-ray showing no acute process and patient currently maintained on room air. Patient is afebrile with no reports of chest pain or shortness of breath. Patient has been tolerating diet with no reported nausea or vomiting. 04/24/2024 Patient is seen in follow-up today with orthopedics following closely. Patient will be scheduled for decompression and fusion on 04/26/[address] Butterfield. Patient is maintained on IV Lasix for some mild volume overload and lower extremity edema and is improving. Continue with DuoNeb treatments and other medications. Patient potassium remains 3.5 and will replace per protocol and recommend daily supplementation. Patient is afebrile with no reports of chest pain or shortness of breath. Patient has been tolerating diet with no reported nausea or vomiting. Continue bowel regimen scheduled and as needed. 04/25/2024 Eval today in follow-up sitting up in the chair. She is not reporting any shortness of breath or chest discomfort. Patient is continued on IV Lasix and has had further improvement in her sodium level currently 132. Patient was cleared by cardiology to undergo surgical intervention with overall benefits outweigh the risks. Surgery has been moved up to this afternoon. Patient does continue to report a dry hacking cough has been ongoing for the last 6 weeks. She is receiving a combination of Robitussin and Mucinex for this we will add Tessalon Perles and Cepacol lozenge. 04/26/2024 Patient is seen in follow-up in the ICU status post occipital cervical posterior lateral fusion of C1-2, C2-T2 with orthopedics yesterday. Patient is in the ICU due to hypotension requiring Levophed currently. Blood pressures have improved and recommend weaning Levophed and per nursing staff awaiting further recommendations from orthopedics regarding Levophed. Soft cervical collar noted as patient was unable to tolerate the hard collar due to fit. Patient reports she has minimal feeling and functioning in her right upper extremity and awaiting PT/OT therapy evaluation. Patient is afebrile with no reports of chest pain or shortness of breath. Patient awaiting to eat although denies any nausea or vomiting. REVIEW OF SYSTEMS: CONSTITUTIONAL: No fever, no malaise,. CARDIOVASCULAR: No chest pain, no palpitations, no syncope. PULMONARY: No shortness of breath, no cough, GASTROINTESTINAL: No diarrhea, no nausea, no vomiting, no abdominal pain. NEUROLOGICAL: As mentioned above PHYSICAL EXAMINATION: GENERAL: The patient is alert and oriented x3, ill looking, elderly appearing, soft cervical collar in place HEENT: Pupils are round and equally reacting to light. EOMI. No scleral icterus. No conjunctival pallor. Normocephalic, atraumatic. No pharyngeal erythema. No thyromegaly. CARDIOVASCULAR: S1 and S2 present. No murmurs, rubs, or gallops. PULMONARY: Diminished breath sounds bilaterally with a few scattered rhonchi are noted. ABDOMEN: Soft, obese, nontender, nondistended, normoactive bowel sounds. No pal pable organomegaly. MUSCULOSKELETAL: No joint swelling or deformity. EXTREMITIES: No cyanosis, clubbing, or pedal edema. Left upper extremity 4/5, right upper extremity 1/5 strength and reports unable to move or feel her right upper extremity NEUROLOGICAL: Gross neurological examination did not reveal any focal deficits. Diffusely weak SKIN: No rashes. Assessment: -Headache, left occipital, MRI of the brain negative for acute process -Bilateral upper and lower extremity paresthesias with significant history of cervical stenosis with previous surgical intervention, status post fusion of C1- 2 along with C2-T2 on 04/25/2024 -Hypotension requiring pressor support, currently weaning Levophed -Cough with shortness of breath, virology testing negative, COPD acute exacerbation -Hyponatremia, hypervolemic improving with IV lasix. -Oral thrush -CHF not in acute exacerbation -History of CAD -Anxiety/depression -Obesity with a BMI of 34.6 GI prophylaxis -DVT prophylaxis -Full code. Plan: Patient underwent MRI of the brain and cervical spine per orthopedics following as patient continues to report paresthesias of the upper extremities with weakness and heaviness. Underwent surgical intervention with decompression and fusion of the thoracic spine on 04/25/2024 Patient developed some hypotension requiring Levophed and per nursing staff orthopedics recommended to continue with Levophed for surgical perfusion although recommend weaning at this time Cardiology has evaluated for surgical clearance as patient has significant comorbidities and patient is cleared only because benefit outweigh risk of surgery. Chest x-ray shows no acute process Home medications reviewed and resumed as appropriate. Plavix is being held at this time due to surgical intervention. Will discuss further with orthopedics when okay to resume Recommend PT/OT therapy evaluation especially of the right upper extremity as patient has no feeling or sensation postsurgery Due to multiple complex medical issues, overall prognosis is guarded The impression and plan of care has been dictated by Ofelia Bryson, Nurse Practitioner as directed. Dr. Tessy MD I have performed a history and examination and MDM of this patient, discussed the same with the dictator, and agree with the dictator's assessment and plan as written ,documented as a scribe. Based on total visit time, I have performed more than 50% of the visit. Objective - Vital Signs Vital signs: Vital Signs Temp 98.5 F 04/26/24 08:00 Pulse 85 04/26/24 09:34 Resp 12 04/26/24 09:15 BP 144/62 04/26/24 09:15 Pulse Ox 97 04/26/24 09:15 FiO2 Intake & Output 04/25/24 04/26/24 04/26/24 18:59 06:59 18:59 Intake Total 3502 1964.206 82.938 Output Total 2945 80 Balance 3502 -980.794 2.938 Weight 76 kg 82.5 kg Intake: IV 3502 1207 23 0.9 KVO 180 20 Magnesium Sulfate-D5w Pmx 100 1 gm In Dextrose/Water 1 100ml.bag @ 100 mls/hr IVPB ONCE ONE Rx#: [id number] Potassium Chloride 10 meq 300 In Water For Injection 1 100ml.bag @ 100 mls/hr IVPB ONCE STA Rx#: [id number] Pressure Bag 27 3 Intake, IV Titration 130.206 59.938 Amount Norepinephrine 4 mg In 130.206 59.938 Sodium Chloride 0.9% 250 ml @ 0.03 MCG/KG/MIN 8. 687 mls/hr IV .Q24H [facility] Rx#:[id number] Blood Product 627 Rc As-1 Unit 310 [id number] Output: Urine 2145 80 Estimated Blood Loss 800 Other: Voiding Method Indwelling Catheter ABP, PAP, CO, CI - Last Documented Arterial Blood Pressure 131/50 - Labs CBC & Chem 7: 04/27/24 02:56 04/27/24 02:56 Labs: Abnormal Lab Results - Last 24 Hours (Table) 04/25/24 04/25/24 04/25/24 Range/Units 08:39 22:32 22:50 WBC (3.8-10.6) k/uL Neutrophils # (1.3-7.7) k/uL Lymphocytes # (1.0-4.8) k/uL Sodium 130 L (137-145) mmol/L Glucose 130 H (74-99) mg/dL POC Glucose (mg/dL) 137 H (70-110) mg/dL Calcium 7.8 L (8.4-10.2) mg/dL Crossmatch See Detail 04/26/24 04/26/24 04/26/24 Range/Units 03:05 04:06 04:06 WBC 22.5 H 21.0 H (3.8-10.6) k/uL Neutrophils # 21.4 H 20.0 H (1.3-7.7) k/uL Lymphocytes # 0.4 L 0.4 L (1.0-4.8) k/uL Sodium 129 L (137-145) mmol/L Glucose 133 H (74-99) mg/dL POC Glucose (mg/dL) (70-110) mg/dL Calcium (8.4-10.2) mg/dL Crossmatch
[2024-04-27 06:34] LABS: Glucose,Whole Blood 143 mg/dL (70-110)
[2024-04-27 11:44] LABS: Glucose,Whole Blood 136 mg/dL (70-110)
--- NOTE | 2024-04-27 12:40 | P.PN ---
Subjective Progress Note Date: 04/26/24 04/26/2024: Patient was seen for a follow-up. Patient is sitting in the recliner in the ICU. Patient has undergone cervical surgery, and postoperatively has noticed right arm weakness. Patient undergone CT of the cervical spine today, which revealed postsurgical changes with hardware intact. No immediate postop complication. Patient has been started on Decadron 4 mg every 4 hours. Patient had numbness of the right arm, but feels the sensation is coming back. However it is still very weak. 04/24/2024: Patient was seen for a follow-up. Patient is sitting in the bed comfortably. Offers no new complaints. Continues to have some heavy feeling in the arms. 04/23/2024: Patient initially seen by Dr. Samy Guadalupe. Please refer to his note for details. Patient is a 79-year-old female, who had transient episode of weakness and numbness. Cervical myelopathy was suspected. Patient has history of previous neck surgery. Orthopedics on board. Patient at present is sitting in the recliner. Patient states that she has history of neck surgery with placement of cage 7 years ago. Patient states that her arms feel like they are "50 pounds weight on each". This has been progressing for last "7 years", progressively getting worse. Patient states her feet feels off and she has "muscle cramps all over". Her hands and arms are numb. Feet also feels half-asleep. Some of the workup during this hospital visit consisted of: CBC with differential is unremarkable Sodium is 128 and the repeated is 127. On 03/04/2024 was as low as 119. CRP is less than 0.5. Calcium, magnesium, creatinine is within normal limits TSH: 2.45 B12: 587 CT of the head is reported as age-related atrophy and chronic small vessel ischemic change without acute intracranial process seen at this time. I personally reviewed the CT and agree with that. CT cervical: Surgical changes from the anterior cervical fusion C3-C7. Foraminal narrowing C4-C5 and C6-C7 Objective - Vital Signs Vital signs: Vital Signs Temp 97.5 F L 04/27/24 12:00 Pulse 68 04/27/24 12:00 Resp 15 04/27/24 12:00 BP 103/73 04/27/24 12:00 Pulse Ox 96 04/27/24 12:00 FiO2 Intake & Output 04/26/24 04/27/24 04/27/24 18:59 06:59 18:59 Intake Total 1049.187 612.007 670.268 Output Total 1625 900 380 Balance -575.813 -287.993 290.268 Weight 80.4 kg Intake: IV 157 110 60 0.9 KVO 130 110 60 Pressure Bag 27 Intake, IV Titration 232.187 22.007 70.268 Amount Norepinephrine 4 mg In 232.187 22.007 70.268 Sodium Chloride 0.9% 250 ml @ 0.03 MCG/KG/MIN 8. 687 mls/hr IV .Q24H [facility] Rx#:[id number] Oral 660 480 540 Output: Drainage 20 Left Neck 20 Urine 1625 880 380 Other: Voiding Method Indwelling Catheter Indwelling Catheter Indwelling Catheter ABP, PAP, CO, CI - Last Documented Arterial Blood Pressure 100/40 - Exam Patient's mental status, speech and language functions are normal. Cranial nerves are normal. On muscle strength testing the strength is (right/left) deltoid 2/5, biceps 2/5, triceps 2/5, miniature model maker 2/5. Hip flexion 4-/5, ankle dorsiflexion 5/5. Plantars are upgoing bilaterally. Sensory to touch is decreased in the right arm. Patient does have multiple bruises in the arms. - Labs CBC & Chem 7: 04/27/24 02:56 04/27/24 02:56 Labs: Abnormal Lab Results - Last 24 Hours (Table) 04/25/24 04/26/24 04/27/24 Range/Units 08:39 16:48 02:56 WBC 19.6 H (3.8-10.6) k/uL RBC 3.78 L (3.80-5.40) m/uL Hgb 10.9 L (11.4-16.0) gm/dL Hct 33.5 L (34.0-46.0) % Sodium (137-145) mmol/L BUN (7-17) mg/dL Glucose (74-99) mg/dL POC Glucose (mg/dL) 168 H (70-110) mg/dL Calcium (8.4-10.2) mg/dL Crossmatch See Detail 04/27/24 04/27/24 04/27/24 Range/Units 02:56 06:33 11:42 WBC (3.8-10.6) k/uL RBC (3.80-5.40) m/uL Hgb (11.4-16.0) gm/dL Hct (34.0-46.0) % Sodium 131 L (137-145) mmol/L BUN 26 H (7-17) mg/dL Glucose 135 H (74-99) mg/dL POC Glucose (mg/dL) 143 H 136 H (70-110) mg/dL Calcium 8.3 L (8.4-10.2) mg/dL Crossmatch Assessment and Plan Assessment: Status post occiput to T2 posterior cervical decompression fusion 04/25/2024 New onset right upper extremity weakness Previous history of Cervical spine decompression and fusion Hyponatremia, improved 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 Patient has developed right upper extremity weakness. Agree with starting steroids. Aggressive physical therapy. * MRI of the brain with and without contrast revealed no evidence of intracranial mass, acute/subacute infarct or abnormal enhancement. Nonspecific white matter changes, likely related to small vessel ischemic disease. I personally reviewed MRI agree with the findings. * MRI of the cervical spine revealed cervical fusion from C3-C6. C6-7 disc preserved in height. No cervical stenosis or cervical cord abnormality. Multilevel neural foraminal stenosis. I personally reviewed MRI agree, and there is probable stenosis at high cervical spine at C2 level, although unc ertain to its severity.. 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 Orthopedic surgery are planning surgical intervention that consists of occipital to T2 posterior decompression and fusion, that has been scheduled for 04/26/2024. * Patient is on Plavix 75 mg daily as well as Lipitor 80 mg daily. Plavix on hold for surgery. Resume Plavix when surgically cleared * B12 587, TSH 2.45, hemoglobin A1c 5.8. Folic acid 12.30 normal * DVT prophylaxis: We will defer to primary care/orthopedic surgery.
--- NOTE | 2024-04-27 14:02 | P.PN ---
Subjective Progress Note Date: 04/27/24 Patient is a 79-year-old female with CAD, and for, heart failure, CVA/TIA, hyperlipidemia, hypertension presenting with headache and paresthesia. She states that she has been feeling numbness and tingling in both her upper extremities and lower extremities. She also feels numbness and tingling along with a headache on the occipital portion of her head. She states these symptoms have been going on for over a week. She states that her arms and legs feel heavy and that it has been constant and has not gone away. Patient denies any exacerbating or relieving factors. She describes her headache aching, burning pain. She was here last week undergoing treatment for congestive heart failure and hyponatremia. Patient reports of ongoing cough for the past month. She reports that there is sputum production. Denies any hemoptysis. Patient also notes of having suspicion of oral thrush likely from her inhalers. Patient reports of denies any fever, chills, syncope, trauma, nausea, vomiting, abdom inal pain, slurred speech. Admits to shortness of breath. EKG independently interpreted shows Brain CT shows age-related atrophic and chronic small vessel ischemic changes without acute intracranial process seen at this time Sodium 128, potassium 4.0 chloride 93, CO2 27, BUN 20, creatinine 0.81. T98.2 F, NC 89, RR 18, BP 96/61, O2 sat 92 percent on room air ED documentation reviewed. 04/21. Patient seen and examined. States sore throat has improved. Still complaining of headache. Blood work done showed WBC 10.13, hemoglobin 713.7, sodium 129, potassium 3.5, BUN 17.1, creatinine 0.9 04/22/2024 Patient seen in follow-up continues to be followed by multiple consultations awaiting to undergo MRI of the brain along with cervical spine with orthopedics following. Cardiology has been consulted for surgical clearance and although considered moderate to high risk given significant comorbidities, patient is willing to proceed with surgery as she continues to have persistent numbness and tingling with paresthesias of the upper extremities along with heaviness. Patient is afebrile with no reports of chest pain or shortness of breath. Patient does have a cough and will obtain a chest x-ray. 04/23/2024 Patient is seen and evaluated in follow-up today and per orthopedics is tenta tively scheduled for surgery on 04/26/2024. Patient continues to report paresthesia and heaviness of her upper extremities with constant tingling. Cardiology consulted for medical clearance. Chest x-ray showing no acute process and patient currently maintained on room air. Patient is afebrile with no reports of chest pain or shortness of breath. Patient has been tolerating diet with no reported nausea or vomiting. 04/24/2024 Patient is seen in follow-up today with orthopedics following closely. Patient will be scheduled for decompression and fusion on 04/26/[address] Butterfield. Patient is maintained on IV Lasix for some mild volume overload and lower extremity edema and is improving. Continue with DuoNeb treatments and other medications. Patient potassium remains 3.5 and will replace per protocol and recommend daily supplementation. Patient is afebrile with no reports of chest pain or shortness of breath. Patient has been tolerating diet with no reported nausea or vomiting. Continue bowel regimen scheduled and as needed. 04/25/2024 Eval today in follow-up sitting up in the chair. She is not reporting any shortness of breath or chest discomfort. Patient is continued on IV Lasix and has had further improvement in her sodium level currently 132. Patient was rufina ared by cardiology to undergo surgical intervention with overall benefits outweigh the risks. Surgery has been moved up to this afternoon. Patient does continue to report a dry hacking cough has been ongoing for the last 6 weeks. She is receiving a combination of Robitussin and Mucinex for this we will add Tessalon Perles and Cepacol lozenge. 04/26/2024 Patient is seen in follow-up in the ICU status post occipital cervical posterior lateral fusion of C1-2, C2-T2 with orthopedics yesterday. Patient is in the ICU due to hypotension requiring Levophed currently. Blood pressures have improved and recommend weaning Levophed and per nursing staff awaiting further recommendations from orthopedics regarding Levophed. Soft cervical collar noted as patient was unable to tolerate the hard collar due to fit. Patient reports she has minimal feeling and functioning in her right upper extremity and awaiting PT/OT therapy evaluation. Patient is afebrile with no reports of chest pain or shortness of breath. Patient awaiting to eat although denies any nausea or vomiting. 04/27. Patient seen and examined. States right upper extremity weakness has improved slightly compared to yesterday. States she is able to lift her right arm better. REVIEW OF SYSTEMS: CONSTITUTIONAL: No fever, no malaise,. CARDIOVASCULAR: No chest pain, no palpitations, no syncope. PULMONARY: No shortness of breath, no cough, GASTROINTESTINAL: No diarrhea, no nausea, no vomiting, no abdominal pain. NEUROLOGICAL: As mentioned above PHYSICAL EXAMINATION: GENERAL: The patient is alert and oriented x3, ill looking, cervical collar in place HEENT: Pupils are round and equally reacting to light. EOMI. No scleral icterus. No conjunctival pallor. Normocephalic, atraumatic. No pharyngeal erythema. No thyromegaly. CARDIOVASCULAR: S1 and S2 present. No murmurs, rubs, or gallops. PULMONARY: Chest is clear to auscultation, no wheezing or crackles. ABDOMEN: Soft, nontender, nondistended, normoactive bowel sounds. No palpable organomegaly. MUSCULOSKELETAL: No joint swelling or deformity. EXTREMITIES: No cyanosis, clubbing, or pedal edema. NEUROLOGICAL: Left upper extremity 4 x 5, right upper extremity 2 x 5, muscle strength5 x 5 lower extremities SKIN: Surgical incision seen, drain in place Assessment and plan #. Headache, left occipital #. Bilateral upper and lower extremity paresthesias Hypotension Acute COPD exacerbation #. Cough #. Shortness of breath #. Hyponatremia #. Oral thrush CHF not in acute exacerbation History of CAD Anxiety/depression Monitor vital signs Monitor CBC Monitor CMP status post occipital cervical posterior lateral fusion of C1-2, C2-T2 Continue IV Decadron Continue pain management with as needed [place] Continue Lasix, Aldactone ICU following Pulmonology following Labs and medication were reviewed.. Continue same treatment. Continue with symptomatic treatment. Resume home medication. Monitor labs and vitals. DVT and GI prophylaxis. Further recommendations as per clinical course of the patient Dictation was produced using [employer] dictation software. please excuse any grammatical, word or spelling errors. Objective - Vital Signs Vital signs: Vital Signs Temp 97.9 F 04/27/24 08:00 Pulse 78 04/27/24 09:00 Resp 19 04/27/24 09:00 BP 92/40 04/27/24 09:00 Pulse Ox 96 04/27/24 09:00 FiO2 Intake & Output 04/26/24 04/27/24 04/27/24 18:59 06:59 18:59 Intake Total 1049.187 612.007 100.268 Output Total 1625 900 200 Balance -575.813 -287.993 -99.732 Weight 80.4 kg Intake: IV 157 110 30 0.9 KVO 130 110 30 Pressure Bag 27 Intake, IV Titration 232.187 22.007 70.268 Amount Norepinephrine 4 mg In 232.187 22.007 70.268 Sodium Chloride 0.9% 250 ml @ 0.03 MCG/KG/MIN 8. 687 mls/hr IV .Q24H [facility] Rx#:[id number] Oral 660 480 Output: Drainage 20 Left Neck 20 Urine 1625 880 200 Other: Voiding Method Indwelling Catheter Indwelling Catheter ABP, PAP, CO, CI - Last Documented Arterial Blood Pressure 100/40 - Labs CBC & Chem 7: 04/27/24 02:56 04/27/24 02:56 Labs: Abnormal Lab Results - Last 24 Hours (Table) 04/25/24 04/26/24 04/26/24 Range/Units 08:39 11:57 16:48 WBC (3.8-10.6) k/uL RBC (3.80-5.40) m/uL Hgb (11.4-16.0) gm/dL Hct (34.0-46.0) % Sodium (137-145) mmol/L BUN (7-17) mg/dL Glucose (74-99) mg/dL POC Glucose (mg/dL) 141 H 168 H (70-110) mg/dL Calcium (8.4-10.2) mg/dL Crossmatch See Detail 04/27/24 04/27/24 04/27/24 Range/Units 02:56 02:56 06:33 WBC 19.6 H (3.8-10.6) k/uL RBC 3.78 L (3.80-5.40) m/uL Hgb 10.9 L (11.4-16.0) gm/dL Hct 33.5 L (34.0-46.0) % Sodium 131 L (137-145) mmol/L BUN 26 H (7-17) mg/dL Glucose 135 H (74-99) mg/dL POC Glucose (mg/dL) 143 H (70-110) mg/dL Calcium 8.3 L (8.4-10.2) mg/dL Crossmatch
--- NOTE | 2024-04-27 14:22 | P.PN ---
Subjective Progress Note Date: 04/27/24 Patient is a 79-year-old female with past medical history significant for coronary artery disease, heart failure, valvular heart disease, CVA/TIA, hyperlipidemia, hypertension, prior C-spine surgery, among other things. She presented to the emergency department back on 04/19/2024 with a chief complaint of left occipital headache and associated cervical radiculopathy symptoms. CT of the cervical spine demonstrated previous postsurgical changes and anterior cervical fusion of C3-C7 and foraminal narrowing of C4-C5 and C6-C7. Cervical spine MRI demonstrated multilevel neural foraminal stenosis at levels of C3-C6. Brain MRI did not show any acute findings. Patient has since been evaluated by orthopedic surgery. Patient underwent occiput to T2 posterior cervical decompression fusion late last night. She was sent to the intensive care unit for recovery. Patient is currently in room 267, she was extubated in recovery. She is currently drowsy, but able to answer all my questions appropriately. Her right upper extremity is flaccid. The surgeon was made aware, and patient was given a dose of Decadron. Patient was also started on norepinephrine to increase spinal cord perfusion pressure. Levophed currently on 0.02 mcg/kg/min. C-spine x-ray postoperatively did not show any evidence of intraoperative complications. She is on 8 L high flow cannula. She is tachypneic. Denies significant shortness of breath. Postoperative chest x-ray shows low lung volumes with increased interstitial pattern and cardiomegaly. She is currently receiving a pack of PRBCs. Patient will be given a dose of Lasix. There is a Hemovac originating from the left cervical region. There is also a wound VAC in place with no drainage. Preoperative CBC: WBC count 9, hemoglobin 13.9, hematocrit 42, platelets 258. Preoperative CMP: Sodium 132, potassium 4.1, chloride 96, serum bicarb 24, BUN 18, creatinine 0.9, glucose 100. LFTs unremarkable. Current vital signs temperature 97.9 F, heart rate 97 bpm, blood pressure 127/78 mmHg, respiratory rate in the high 20s, SpO2 97% on 9 L high flow. Patient will undergo postoperative CT of the cervical spine. 04/27/2024, the patient is being seen for a follow-up. The patient is awake and alert. The patient is currently off pressors. No significant bleeding from the Hemovac in the surgical wound site over the neck area is dry clean and intact. The patient is awake and alert. She is still having weakness in her extremities specially in the right upper extremity and the patient remains on Decadron. No other significant events overnight. The patient is currently on 2 L oxygen with a pulse ox of 93%. The white cell count of 19.6 with a hemoglobin 10.7 and a platelet count of 248. BUN is 26 with a creatinine of 0.66 and a sodium level of 131 with a potassium level of 4.5. No other new events overnight. The patient is still recovering from her neck surgery. Objective - Vital Signs Vital signs: Vital Signs Temp 97.9 F 04/27/24 08:00 Pulse 78 04/27/24 09:00 Resp 19 04/27/24 09:00 BP 92/40 04/27/24 09:00 Pulse Ox 96 04/27/24 09:00 FiO2 Intake & Output 04/26/24 04/27/24 04/27/24 18:59 06:59 18:59 Intake Total 1049.187 612.007 100.268 Output Total 1625 900 200 Balance -575.813 -287.993 -99.732 Weight 80.4 kg Intake: IV 157 110 30 0.9 KVO 130 110 30 Pressure Bag 27 Intake, IV Titration 232.187 22.007 70.268 Amount Norepinephrine 4 mg In 232.187 22.007 70.268 Sodium Chloride 0.9% 250 ml @ 0.03 MCG/KG/MIN 8. 687 mls/hr IV .Q24H [facility] Rx#:[id number] Oral 660 480 Output: Drainage 20 Left Neck 20 Urine 1625 880 200 Other: Voiding Method Indwelling Catheter Indwelling Catheter ABP, PAP, CO, CI - Last Documented Arterial Blood Pressure 100/40 - Exam GENERAL EXAM: Drowsy, 79-year-old female, c-collar in place, currently on 2 L O2 nasal cannula HEAD: Normocephalic and atraumatic EYES: Normal reaction of pupils, equal size. NOSE: Clear with pink turbinates. THROAT: No erythema or exudates. NECK: No masses, no JVD. Left IJ central line catheter CHEST: No chest wall deformity. Old sternotomy incision LUNGS: Equal air entry with no crackles, wheeze, rhonchi or dullness. CVS: S1 and S2 normal with no grade 2 systolic murmur, regular rhythm. No extra heart sounds ABDOMEN: No hepatosplenomegaly, active bowel sounds, no guarding or rigidity. SPINE: Cervical collar in place, cervical level Hemovac compressed with minimal sanguinous output and wound VAC with no drainage in chamber. SKIN: No rashes CENTRAL NERVOUS SYSTEM: No facial asymmetry, tongue protrudes midline, no aphasia/dysphasia, no vision changes, conjugate gaze. Right shoulder is weak. Right arm is completely flaccid with reduced sensation. Remaining extremities are weak strength 4/5. No ataxia out of proportion to weakness. Patellar DTRs 1+ bilaterally EXTREMITIES: No peripheral edema. Pulses 2+ throughout. - Labs CBC & Chem 7: 04/27/24 02:56 04/27/24 02:56 Labs: Abnormal Lab Results - Last 24 Hours (Table) 04/25/24 04/26/24 04/26/24 Range/Units 08:39 11:57 16:48 WBC (3.8-10.6) k/uL RBC (3.80-5.40) m/uL Hgb (11.4-16.0) gm/dL Hct (34.0-46.0) % Sodium (137-145) mmol/L BUN (7-17) mg/dL Glucose (74-99) mg/dL POC Glucose (mg/dL) 141 H 168 H (70-110) mg/dL Calcium (8.4-10.2) mg/dL Crossmatch See Detail 04/27/24 04/27/24 04/27/24 Range/Units 02:56 02:56 06:33 WBC 19.6 H (3.8-10.6) k/uL RBC 3.78 L (3.80-5.40) m/uL Hgb 10.9 L (11.4-16.0) gm/dL Hct 33.5 L (34.0-46.0) % Sodium 131 L (137-145) mmol/L BUN 26 H (7-17) mg/dL Glucose 135 H (74-99) mg/dL POC Glucose (mg/dL) 143 H (70-110) mg/dL Calcium 8.3 L (8.4-10.2) mg/dL Crossmatch Assessment and Plan Assessment: Status postoperative day # 2 following a occiput to T2 posterior cervical decompression fusion Right arm weakness, somewhat improved yet the right upper extremity remains weak. The patient remains on Decadron. Multilevel neural foraminal stenosis at levels of C3-C6 and cervical radiculopathy symptoms Acute hypoxemic respiratory failure, postoperative chest x-ray showing low lung volumes, cardiomegaly, interstitial prominence. Clinically improved and the patient is using the incentive spirometer, currently on 2 L of oxygen nasal cannula History of asthma, stable History of prior anterior cervical spine decompression and fusion History of CVA/TIA History of hyperlipidemia History of hypertension History of diastolic heart failure and valvular heart disease, recent echocardiogram done February 2024 estimating a left ventricular ejection fraction of 55 to 60% as well as moderate aortic stenosis History of coronary artery disease, status post double vessel CABG Plan: Patient is currently on 2 L of O2 nasal cannula Incentive spirometer Monitor postoperative surgical course. Patient remains on Decadron. Patient is currently off pressors Asymmetric right arm weakness seems to be improving Patient is going to undergo postoperative CT of the C-spine Chest x-ray showing some fluid overload and congestion Continue home medications Remains on a combination of Lasix and Aldactone Remains on DuoNeb nebulized treatments [id number] GI prophylaxis: Protonix DVT prophylaxis: SCDs are on
--- NOTE | 2024-04-27 15:13 | P.PN ---
Subjective Progress Note Date: 04/27/24 Principal diagnosis: Status post occiputT2 posterior decompression and fusion Patient evaluated today at bedside, she is resting in the ICU. She is rather comfortable on exam. She is utilizing the soft c-collar. The right upper extremity has improved slightly with regards to her range of motion in all those muscle groups. Urinary catheter remains in place. The wound VAC is in place with good suction, the Hemovac drain is also present, they drained about 20 cc of bloody serosanguineous dressing overnight. She denies any left upper extremity symptoms or bilateral lower extremity symptoms. Objective - Vital Signs Vital signs: Vital Signs Temp 97.5 F L 04/27/24 12:00 Pulse 64 04/27/24 14:00 Resp 15 04/27/24 14:00 BP 93/38 04/27/24 14:00 Pulse Ox 93 L 04/27/24 14:00 FiO2 Intake & Output 04/26/24 04/27/24 04/27/24 18:59 06:59 18:59 Intake Total 1049.187 612.007 780.268 Output Total 1625 900 555 Balance -575.813 -287.993 225.268 Weight 80.4 kg Intake: IV 157 110 70 0.9 KVO 130 110 70 Pressure Bag 27 Intake, IV Titration 232.187 22.007 70.268 Amount Norepinephrine 4 mg In 232.187 22.007 70.268 Sodium Chloride 0.9% 250 ml @ 0.03 MCG/KG/MIN 8. 687 mls/hr IV .Q24H [facility] Rx#:[id number] Oral 660 480 640 Output: Drainage 20 Left Neck 20 Urine 1625 880 555 Other: Voiding Method Indwelling Catheter Indwelling Catheter Indwelling Catheter ABP, PAP, CO, CI - Last Documented Arterial Blood Pressure 100/40 - Exam Gen: AOx3, NAD VSS stable at this time Integument: Wound VAC dressing in good position and condition, no obvious drainage Palpation: Tenderness with palpation to the posterior cervical spine ROM: Full range of motion in the left upper extremity, no focal deficits, full range of motion of the bilateral lower extremities, no focal deficits. Range of motion is limited to the right lower extremity due to C5 nerve palsy Sensory Exam: Senory exam to light touch is intact C5-T1 Senosry exam to light touch is intact L2-S1 Motor: 4/5 strength appreciate the left upper extremity with shoulder abduction, shoulder elevation, elbow extension, elbow flexion, wrist extension, wrist flexion, attending psychiatrist 4/5 strength appreciated bilateral lower extremities with hip flexion, knee extension, knee flexion, plantarflexion, dorsiflexion, EHL, FHL Strength testing not assessed to the right upper extremity Reflexes: Positive Maxine's right, negative left Negative Babinski bilaterally Negative clonus bilaterally - Labs CBC & Chem 7: 04/27/24 02:56 04/27/24 02:56 Labs: Abnormal Lab Results - Last 24 Hours (Table) 04/25/24 04/26/24 04/27/24 Range/Units 08:39 16:48 02:56 WBC 19.6 H (3.8-10.6) k/uL RBC 3.78 L (3.80-5.40) m/uL Hgb 10.9 L (11.4-16.0) gm/dL Hct 33.5 L (34.0-46.0) % Sodium (137-145) mmol/L BUN (7-17) mg/dL Glucose (74-99) mg/dL POC Glucose (mg/dL) 168 H (70-110) mg/dL Calcium (8.4-10.2) mg/dL Crossmatch See Detail 04/27/24 04/27/24 04/27/24 Range/Units 02:56 06:33 11:42 WBC (3.8-10.6) k/uL RBC (3.80-5.40) m/uL Hgb (11.4-16.0) gm/dL Hct (34.0-46.0) % Sodium 131 L (137-145) mmol/L BUN 26 H (7-17) mg/dL Glucose 135 H (74-99) mg/dL POC Glucose (mg/dL) 143 H 136 H (70-110) mg/dL Calcium 8.3 L (8.4-10.2) mg/dL Crossmatch Assessment and Plan Assessment: Postoperative day #2 status post occiputT2 posterior lateral decompression and fusion C5 nerve palsy, right upper extremity Multiple medical comorbidities Plan: Pain control, continue with current medications GI and DVT prophylaxis, okay to restart Plavix on 04/28/2024 Continue to monitor drain and wound VAC, plan for removal of wound VAC and dressing change on 04/28/2024 Continue range of motion exercises with the right upper extremity PT/OT Weight-bear as tolerated with walker Plan for discontinuation of urinary catheter on 04/28/2024 Other medical specialty recommendations appreciated Will continue to follow patient during hospital stay Time with Patient: Less than 30
[2024-04-27 16:47] LABS: Glucose,Whole Blood 139 mg/dL (70-110)
[2024-04-27] MEDS: CYCLOBENZAPRINE 5 MG TAB PO PRN (20:52)
[2024-04-28 06:38] LABS: Glucose,Whole Blood 134 mg/dL (70-110)
--- NOTE | 2024-04-28 09:51 | P.PN ---
Subjective Progress Note Date: 04/28/24 Principal diagnosis: Status post occiputT2 posterior decompression and fusion Patient evaluated today at bedside, she is on the medical/surgical floor at this time. The right arm has continued to improve slightly mainly with deltoid activation. She has no headaches, lightheadedness, chest pain or shortness of breath. She denies any left upper extremity symptoms or bilateral lower extremity symptoms. Objective - Vital Signs Vital signs: Vital Signs Temp 98.0 F 04/28/24 07:17 Pulse 68 04/28/24 08:41 Resp 17 04/28/24 07:17 BP 136/71 04/28/24 07:17 Pulse Ox 93 L 04/28/24 08:36 FiO2 21 04/28/24 08:36 Intake & Output 04/27/24 04/28/24 04/28/24 18:59 06:59 18:59 Intake Total 780.268 Output Total 555 700 Balance 225.268 -700 Weight 73.3 kg Intake: IV 70 0.9 KVO 70 Intake, IV Titration 70.268 Amount Norepinephrine 4 mg In 70.268 Sodium Chloride 0.9% 250 ml @ 0.03 MCG/KG/MIN 8. 687 mls/hr IV .Q24H [facility] Rx#:[id number] Oral 640 Output: Urine 555 700 Other: Voiding Method Indwelling Catheter Indwelling Catheter ABP, PAP, CO, CI - Last Documented Arterial Blood Pressure 100/40 - Exam Gen: AOx3, NAD VSS stable at this time Integument: Wound VAC and Hemovac were both removed today. Sutures are all in good position and condition. No significant drainage or soft tissue swelling appreciated. Palpation: Tenderness with palpation to the posterior cervical spine ROM: Full range of motion in the left upper extremity, no focal deficits, full range of motion of the bilateral lower extremities, no focal deficits. Range of motion is limited to the right lower extremity due to C5 nerve palsy Sensory Exam: Senory exam to light touch is intact C5-T1 Senosry exam to light touch is intact L2-S1 Motor: 4/5 strength appreciate the left upper extremity with shoulder abduction, shoulder elevation, elbow extension, elbow flexion, wrist extension, wrist flexion, machine feeder 4/5 strength appreciated bilateral lower extremities with hip flexion, knee extension, knee flexion, plantarflexion, dorsiflexion, EHL, FHL Strength testing not assessed to the right upper extremity Reflexes: Positive Maxine's right, negative left Negative Babinski bilaterally Negative clonus bilaterally - Labs CBC & Chem 7: 04/27/24 02:56 04/27/24 02:56 Labs: Abnormal Lab Results - Last 24 Hours (Table) 04/27/24 04/27/24 04/28/24 Range/Units 11:42 16:46 06:36 POC Glucose (mg/dL) 136 H 139 H 134 H (70-110) mg/dL Assessment and Plan Assessment: Postoperative day #3 status post occiputT2 posterior lateral decompression and fusion C5 nerve palsy, right upper extremity Multiple medical comorbidities Plan: Pain control, continue with current medications GI and DVT prophylaxis, okay to restart Plavix on 04/28/2024 Monitor surgical dressing Continue range of motion exercises with the right upper extremity PT/OT Weight-bear as tolerated with walker DC urinary catheter on 04/28/2024 Other medical specialty recommendations appreciated Will continue to follow patient during hospital stay Time with Patient: Less than 30
--- NOTE | 2024-04-28 11:32 | P.PN ---
Subjective Progress Note Date: 04/27/24 04/27/2024: Patient was seen for a follow-up. Patient is sitting in the recliner, in good spirits. Continues to have weakness of the right arm, although getting better. 04/26/2024: Patient was seen for a follow-up. Patient is sitting in the recliner in the ICU. Patient has undergone cervical surgery, and postoperatively has noticed right arm weakness. Patient undergone CT of the cervical spine today, which revealed postsurgical changes with hardware intact. No immediate postop complication. Patient has been started on Decadron 4 mg every 4 hours. Patient had numbness of the right arm, but feels the sensation is coming back. However it is still very weak. 04/24/2024: Patient was seen for a follow-up. Patient is sitting in the bed comfortably. Offers no new complaints. Continues to have some heavy feeling in the arms. 04/23/2024: Patient initially seen by Dr. Samy Guadalupe. Please refer to his note for details. Patient is a 79-year-old female, who had transient episode of weakness and numbness. Cervical myelopathy was suspected. Patient has history of previous neck surgery. Orthopedics on board. Patient at present is sitting in the recliner. Patient states that she has history of neck surgery with placement of cage 7 years ago. Patient states that her arms feel like they are "50 pounds weight on each". This has been progressing for last "7 years", progressively getting worse. Patient states her feet feels off and she has "muscle cramps all over". Her hands and arms are numb. Feet also feels half-asleep. Some of the workup during this hospital visit consisted of: CBC with differential is unremarkable Sodium is 128 and the repeated is 127. On 03/04/2024 was as low as 119. CRP is less than 0.5. Calcium, magnesium, creatinine is within normal limits TSH: 2.45 B12: 587 CT of the head is reported as age-related atrophy and chronic small vessel i schemic change without acute intracranial process seen at this time. I personally reviewed the CT and agree with that. CT cervical: Surgical changes from the anterior cervical fusion C3-C7. Foramina l narrowing C4-C5 and C6-C7 Objective - Vital Signs Vital signs: Vital Signs Temp 97.5 F L 04/27/24 16:16 Pulse 65 04/27/24 16:16 Resp 16 04/27/24 16:16 BP 128/63 04/27/24 16:16 Pulse Ox 97 04/27/24 16:16 FiO2 Intake & Output 04/26/24 04/27/24 04/27/24 18:59 06:59 18:59 Intake Total 1049.187 612.007 780.268 Output Total 1625 900 555 Balance -575.813 -287.993 225.268 Weight 80.4 kg Intake: IV 157 110 70 0.9 KVO 130 110 70 Pressure Bag 27 Intake, IV Titration 232.187 22.007 70.268 Amount Norepinephrine 4 mg In 232.187 22.007 70.268 Sodium Chloride 0.9% 250 ml @ 0.03 MCG/KG/MIN 8. 687 mls/hr IV .Q24H [facility] Rx#:[id number] Oral 660 480 640 Output: Drainage 20 Left Neck 20 Urine 1625 880 555 Other: Voiding Method Indwelling Catheter Indwelling Catheter Indwelling Catheter ABP, PAP, CO, CI - Last Documented Arterial Blood Pressure 100/40 - Exam Patient's mental status, speech and language functions are normal. Cranial nerves are normal. On muscle strength testing the strength is (right/left) deltoid 2/5, biceps 2/5, triceps 4/5, noise tester 4-/5. Hip flexion 4-/5, ankle dorsiflexion 5/5. Patient able to supinate pronate her right arm. Plantars are upgoing bilaterally. Sensory to touch is decreased in the right arm. - Labs CBC & Chem 7: 04/27/24 02:56 04/27/24 02:56 Labs: Abnormal Lab Results - Last 24 Hours (Table) 04/25/24 04/27/24 04/27/24 Range/Units 08:39 02:56 02:56 WBC 19.6 H (3.8-10.6) k/uL RBC 3.78 L (3.80-5.40) m/uL Hgb 10.9 L (11.4-16.0) gm/dL Hct 33.5 L (34.0-46.0) % Sodium 131 L (137-145) mmol/L BUN 26 H (7-17) mg/dL Glucose 135 H (74-99) mg/dL POC Glucose (mg/dL) (70-110) mg/dL Calcium 8.3 L (8.4-10.2) mg/dL Crossmatch See Detail 04/27/24 04/27/24 04/27/24 Range/Units 06:33 11:42 16:46 WBC (3.8-10.6) k/uL RBC (3.80-5.40) m/uL Hgb (11.4-16.0) gm/dL Hct (34.0-46.0) % Sodium (137-145) mmol/L BUN (7-17) mg/dL Glucose (74-99) mg/dL POC Glucose (mg/dL) 143 H 136 H 139 H (70-110) mg/dL Calcium (8.4-10.2) mg/dL Crossmatch Assessment and Plan Assessment: Status post occiput to T2 posterior cervical decompression fusion 04/25/2024 New onset right upper extremity weakness since surgery. 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 Patient has developed right upper extremity weakness. Agree with starting steroids. Aggressive physical therapy. Right arm is slightly improved as compared to yesterday. * MRI of the brain with and without contrast revealed no evidence of intracranial mass, acute/subacute infarct or abnormal enhancement. Non specific white matter changes, likely related to small vessel ischemic disease. I personally reviewed MRI agree with the findings. * MRI of the cervical spine revealed cervical fusion from C3-C6. C6-7 disc preserved in height. No cervical stenosis or cervical cord abnormality. Multilevel neural foraminal stenosis. I personally reviewed MRI agree, and there is probable stenosis at high cervical spine at C2 level, although uncertain to its severity.. 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 Orthopedic surgery are planning surgical intervention that consists of occipital to T2 posterior decompression and fusion, that has been scheduled for 04/26/2024. * Patient is on Plavix 75 mg daily as well as Lipitor 80 mg daily. Plavix on hold for surgery. Resume Plavix when surgically cleared * B12 587, TSH 2.45, hemoglobin A1c 5.8. Folic acid 12.30 normal * DVT prophylaxis: We will defer to primary care/orthopedic surgery.
[2024-04-28 11:41] LABS: Glucose,Whole Blood 130 mg/dL (70-110)
--- NOTE | 2024-04-28 12:44 | P.PN ---
Subjective Progress Note Date: 04/28/24 Patient is a 79-year-old female with CAD, and for, heart failure, CVA/TIA, hyperlipidemia, hypertension presenting with headache and paresthesia. She states that she has been feeling numbness and tingling in both her upper extremities and lower extremities. She also feels numbness and tingling along with a headache on the occipital portion of her head. She states these symptoms have been going on for over a week. She states that her arms and legs feel heavy and that it has been constant and has not gone away. Patient denies any exacerbating or relieving factors. She describes her headache aching, burning pain. She was here last week undergoing treatment for congestive heart failure and hyponatremia. Patient reports of ongoing cough for the past month. She reports that there is sputum production. Denies any hemoptysis. Patient also notes of having suspicion of oral thrush likely from her inhalers. Patient reports of denies any fever, chills, syncope, trauma, nausea, vomiting, abdom inal pain, slurred speech. Admits to shortness of breath. EKG independently interpreted shows Brain CT shows age-related atrophic and chronic small vessel ischemic changes without acute intracranial process seen at this time Sodium 128, potassium 4.0 chloride 93, CO2 27, BUN 20, creatinine 0.81. T98.2 F, MT 89, RR 18, BP 96/61, O2 sat 92 percent on room air ED documentation reviewed. 04/21. Patient seen and examined. States sore throat has improved. Still complaining of headache. Blood work done showed WBC 10.13, hemoglobin 713.7, sodium 129, potassium 3.5, BUN 17.1, creatinine 0.9 04/22/2024 Patient seen in follow-up continues to be followed by multiple consultations awaiting to undergo MRI of the brain along with cervical spine with orthopedics following. Cardiology has been consulted for surgical clearance and although considered moderate to high risk given significant comorbidities, patient is willing to proceed with surgery as she continues to have persistent numbness and tingling with paresthesias of the upper extremities along with heaviness. Patient is afebrile with no reports of chest pain or shortness of breath. Patient does have a cough and will obtain a chest x-ray. 04/23/2024 Patient is seen and evaluated in follow-up today and per orthopedics is tenta tively scheduled for surgery on 04/26/2024. Patient continues to report paresthesia and heaviness of her upper extremities with constant tingling. Cardiology consulted for medical clearance. Chest x-ray showing no acute process and patient currently maintained on room air. Patient is afebrile with no reports of chest pain or shortness of breath. Patient has been tolerating diet with no reported nausea or vomiting. 04/24/2024 Patient is seen in follow-up today with orthopedics following closely. Patient will be scheduled for decompression and fusion on 04/26/[address] Butterfield. Patient is maintained on IV Lasix for some mild volume overload and lower extremity edema and is improving. Continue with DuoNeb treatments and other medications. Patient potassium remains 3.5 and will replace per protocol and recommend daily supplementation. Patient is afebrile with no reports of chest pain or shortness of breath. Patient has been tolerating diet with no reported nausea or vomiting. Continue bowel regimen scheduled and as needed. 04/25/2024 Eval today in follow-up sitting up in the chair. She is not reporting any shortness of breath or chest discomfort. Patient is continued on IV Lasix and has had further improvement in her sodium level currently 132. Patient was rufina ared by cardiology to undergo surgical intervention with overall benefits outweigh the risks. Surgery has been moved up to this afternoon. Patient does continue to report a dry hacking cough has been ongoing for the last 6 weeks. She is receiving a combination of Robitussin and Mucinex for this we will add Tessalon Perles and Cepacol lozenge. 04/26/2024 Patient is seen in follow-up in the ICU status post occipital cervical posterior lateral fusion of C1-2, C2-T2 with orthopedics yesterday. Patient is in the ICU due to hypotension requiring Levophed currently. Blood pressures have improved and recommend weaning Levophed and per nursing staff awaiting further recommendations from orthopedics regarding Levophed. Soft cervical collar noted as patient was unable to tolerate the hard collar due to fit. Patient reports she has minimal feeling and functioning in her right upper extremity and awaiting PT/OT therapy evaluation. Patient is afebrile with no reports of chest pain or shortness of breath. Patient awaiting to eat although denies any nausea or vomiting. 04/27. Patient seen and examined. States right upper extremity weakness has improved slightly compared to yesterday. States she is able to lift her right arm better. /20. Patient seen and examined. Continues to state that right upper extremity strength is improved. REVIEW OF SYSTEMS: CONSTITUTIONAL: No fever, no malaise,. CARDIOVASCULAR: No chest pain, no palpitations, no syncope. PULMONARY: No shortness of breath, no cough, GASTROINTESTINAL: No diarrhea, no nausea, no vomiting, no abdominal pain. NEUROLOGICAL: As mentioned above PHYSICAL EXAMINATION: GENERAL: The patient is alert and oriented x3, ill looking, cervical collar in place HEENT: Pupils are round and equally reacting to light. EOMI. No scleral icterus. No conjunctival pallor. Normocephalic, atraumatic. No pharyngeal erythema. No thyromegaly. CARDIOVASCULAR: S1 and S2 present. No murmurs, rubs, or gallops. PULMONARY: Chest is clear to auscultation, no wheezing or crackles. ABDOMEN: Soft, nontender, nondistended, normoactive bowel sounds. No palpable organomegaly. MUSCULOSKELETAL: No joint swelling or deformity. EXTREMITIES: No cyanosis, clubbing, or pedal edema. NEUROLOGICAL: Left upper extremity 4 x 5, right upper extremity 3 x 5, muscle strength5 x 5 lower extremities SKIN: Surgical incision seen, drain in place Assessment and plan #. Headache, left occipital #. Bilateral upper and lower extremity paresthesias Hypotension Acute COPD exacerbation #. Cough #. Shortness of breath #. Hyponatremia #. Oral thrush CHF not in acute exacerbation History of CAD Anxiety/depression Monitor vital signs Monitor CBC Monitor CMP status post occipital cervical posterior lateral fusion of C1-2, C2-T2 Continue IV Decadron Continue pain management with as needed [place] continue range of motion exercises with the right upper extremity Continue Lasix, Aldactone Orthopedic following Labs and medication were reviewed.. Continue same treatment. Continue with symptomatic treatment. Resume home medication. Monitor labs and vitals. DVT and GI prophylaxis. Further recommendations as per clinical course of the patient Dictation was produced using [employer] dictation software. please excuse any grammatical, word or spelling errors. Objective - Vital Signs Vital signs: Vital Signs Temp 98.0 F 04/28/24 07:17 Pulse 68 04/28/24 08:41 Resp 17 04/28/24 07:17 BP 136/71 04/28/24 07:17 Pulse Ox 93 L 04/28/24 08:36 FiO2 21 04/28/24 08:36 Intake & Output 04/27/24 04/28/24 04/28/24 18:59 06:59 18:59 Intake Total 780.268 Output Total 555 700 Balance 225.268 -700 Weight 73.3 kg Intake: IV 70 0.9 KVO 70 Intake, IV Titration 70.268 Amount Norepinephrine 4 mg In 70.268 Sodium Chloride 0.9% 250 ml @ 0.03 MCG/KG/MIN 8. 687 mls/hr IV .Q24H [facility] Rx#:[id number] Oral 640 Output: Urine 555 700 Other: Voiding Method Indwelling Catheter Indwelling Catheter ABP, PAP, CO, CI - Last Documented Arterial Blood Pressure 100/40 - Labs CBC & Chem 7: 04/27/24 02:56 04/27/24 02:56 Labs: Abnormal Lab Results - Last 24 Hours (Table) 04/27/24 04/27/24 04/28/24 Range/Units 11:42 16:46 06:36 POC Glucose (mg/dL) 136 H 139 H 134 H (70-110) mg/dL
[2024-04-28] MEDS: CLOPIDOGREL 75 MG TAB PO SCH (13:34)
--- NOTE | 2024-04-28 13:40 | P.PN ---
Subjective Progress Note Date: 04/28/24 Patient is a 79-year-old female with past medical history significant for coronary artery disease, heart failure, valvular heart disease, CVA/TIA, hyperlipidemia, hypertension, prior C-spine surgery, among other things. She presented to the emergency department back on 04/19/2024 with a chief complaint of left occipital headache and associated cervical radiculopathy symptoms. CT of the cervical spine demonstrated previous postsurgical changes and anterior cervical fusion of C3-C7 and foraminal narrowing of C4-C5 and C6-C7. Cervical spine MRI demonstrated multilevel neural foraminal stenosis at levels of C3-C6. Brain MRI did not show any acute findings. Patient has since been evaluated by orthopedic surgery. Patient underwent occiput to T2 posterior cervical decompression fusion late last night. She was sent to the intensive care unit for recovery. Patient is currently in room 267, she was extubated in recovery. She is currently drowsy, but able to answer all my questions appropriately. Her right upper extremity is flaccid. The surgeon was made aware, and patient was given a dose of Decadron. Patient was also started on norepinephrine to increase spinal cord perfusion pressure. Levophed currently on 0.02 mcg/kg/min. C-spine x-ray postoperatively did not show any evidence of intraoperative complications. She is on 8 L high flow cannula. She is tachypneic. Denies significant shortness of breath. Postoperative chest x-ray shows low lung volumes with increased interstitial pattern and cardiomegaly. She is currently receiving a pack of PRBCs. Patient will be given a dose of Lasix. There is a Hemovac originating from the left cervical region. There is also a wound VAC in place with no drainage. Preoperative CBC: WBC count 9, hemoglobin 13.9, hematocrit 42, platelets 258. Preoperative CMP: Sodium 132, potassium 4.1, chloride 96, serum bicarb 24, BUN 18, creatinine 0.9, glucose 100. LFTs unremarkable. Current vital signs temperature 97.9 F, heart rate 97 bpm, blood pressure 127/78 mmHg, respiratory rate in the high 20s, SpO2 97% on 9 L high flow. Patient will undergo postoperative CT of the cervical spine. 04/27/2024, the patient is being seen for a follow-up. The patient is awake and alert. The patient is currently off pressors. No significant bleeding from the Hemovac in the surgical wound site over the neck area is dry clean and intact. The patient is awake and alert. She is still having weakness in her extremities specially in the right upper extremity and the patient remains on Decadron. No other significant events overnight. The patient is currently on 2 L oxygen with a pulse ox of 93%. The white cell count of 19.6 with a hemoglobin 10.7 and a platelet count of 248. BUN is 26 with a creatinine of 0.66 and a sodium level of 131 with a potassium level of 4.5. No other new events overnight. The patient is still recovering from her neck surgery. 04/28/2024, patient is calm and comfortable. Extremity weakness is improving slowly on a daily basis. She remains on Decadron. No respiratory difficulties and the patient is currently on room air oxygen with a pulse ox of 93%. No new labs from today and the most recent labs are from yesterday. Medications are unchanged and the patient got transferred out of the intensive care unit and the patient remains to be stable. Still on a combination of Lasix and Aldactone. [place] for pain control. Remains on Decadron 4 mg every 4 hours and the patient and his on laxative. Surgical wound site over the neck area is dry clean and intact. Objective - Vital Signs Vital signs: Vital Signs Temp 98.0 F 04/28/24 07:17 Pulse 68 04/28/24 08:41 Resp 17 04/28/24 07:17 BP 136/71 04/28/24 07:17 Pulse Ox 93 L 04/28/24 08:36 FiO2 21 04/28/24 08:36 Intake & Output 04/27/24 04/28/24 04/28/24 18:59 06:59 18:59 Intake Total 780.268 Output Total 555 700 Balance 225.268 -700 Weight 73.3 kg Intake: IV 70 0.9 KVO 70 Intake, IV Titration 70.268 Amount Norepinephrine 4 mg In 70.268 Sodium Chloride 0.9% 250 ml @ 0.03 MCG/KG/MIN 8. 687 mls/hr IV .Q24H [facility] Rx#:[id number] Oral 640 Output: Urine 555 700 Other: Voiding Method Indwelling Catheter Indwelling Catheter ABP, PAP, CO, CI - Last Documented Arterial Blood Pressure 100/40 - Exam GENERAL EXAM: Drowsy, 79-year-old female, c-collar in place, currently on 2 L O2 nasal cannula HEAD: Normocephalic and atraumatic EYES: Normal reaction of pupils, equal size. NOSE: Clear with pink turbinates. THROAT: No erythema or exudates. NECK: No masses, no JVD. Left IJ central line catheter CHEST: No chest wall deformity. Old sternotomy incision LUNGS: Equal air entry with no crackles, wheeze, rhonchi or dullness. CVS: S1 and S2 normal with no grade 2 systolic murmur, regular rhythm. No extra heart sounds ABDOMEN: No hepatosplenomegaly, active bowel sounds, no guarding or rigidity. SPINE: Cervical collar in place, cervical level Hemovac compressed with minimal sanguinous output and wound VAC with no drainage in chamber. SKIN: No rashes CENTRAL NERVOUS SYSTEM: No facial asymmetry, tongue protrudes midline, no aphasia/dysphasia, no vision changes, conjugate gaze. Right shoulder is weak. Right arm is completely flaccid with reduced sensation. Remaining extremities are weak strength 4/5. No ataxia out of proportion to weakness. Patellar DTRs 1+ bilaterally EXTREMITIES: No peripheral edema. Pulses 2+ throughout. - Labs CBC & Chem 7: 04/27/24 02:56 04/27/24 02:56 Labs: Abnormal Lab Results - Last 24 Hours (Table) 04/27/24 04/27/24 04/28/24 Range/Units 11:42 16:46 06:36 POC Glucose (mg/dL) 136 H 139 H 134 H (70-110) mg/dL Assessment and Plan Assessment: Status postoperative day # 2 following a occiput to T2 posterior cervical decompression fusion Right arm weakness, somewhat improved yet the right upper extremity remains weak. The patient remains on Decadron. Multilevel neural foraminal stenosis at levels of C3-C6 and cervical radiculopathy symptoms Acute hypoxemic respiratory failure, postoperative chest x-ray showing low lung volumes, cardiomegaly, interstitial prominence. Clinically improved and the patient is using the incentive spirometer, currently on 2 L of oxygen nasal cannula History of asthma, stable History of prior anterior cervical spine decompression and fusion History of CVA/TIA History of hyperlipidemia History of hypertension History of diastolic heart failure and valvular heart disease, recent echocardiogram done February 2024 estimating a left ventricular ejection fraction of 55 to 60% as well as moderate aortic stenosis History of coronary artery disease, status post double vessel CABG Plan: Patient is currently on room air oxygen a Incentive spirometer Monitor postoperative surgical course. Patient remains on Decadron, 4 mg IV every 4 hours and the weakness essentially improving Patient got transferred out of the intensive care unit Asymmetric right arm weakness seems to be improving Patient is going to undergo postoperative CT of the C-spine Continue home medications Remains on a combination of Lasix and Aldactone Remains on DuoNeb nebulized treatments [id number] GI prophylaxis: Protonix DVT prophylaxis: SCDs are on
--- NOTE | 2024-04-28 15:25 | P.PN ---
Subjective Progress Note Date: 04/28/24 04/28/2024: Patient was seen for a follow-up. Patient is sitting in the recliner. Patient's sister was present. Patient believes her right arm is getting better. Neck is still hurting. No new concerns. She feels the left arm is not as heavy as it used to be, but her right arm is definitely weaker. 04/27/2024: Patient was seen for a follow-up. Patient is sitting in the re cliner, in good spirits. Continues to have weakness of the right arm, although getting better. 04/26/2024: Patient was seen for a follow-up. Patient is sitting in the recli ner in the ICU. Patient has undergone cervical surgery, and postoperatively has noticed right arm weakness. Patient undergone CT of the cervical spine today, which revealed postsurgical changes with hardware intact. No immediate postop complication. Patient has been started on Decadron 4 mg every 4 hours. Patient had numbness of the right arm, but feels the sensation is coming back. However it is still very weak. 04/24/2024: Patient was seen for a follow-up. Patient is sitting in the bed comfortably. Offers no new complaints. Continues to have some heavy feeling in the arms. 04/23/2024: Patient initially seen by Dr. Samy Guadalupe. Please refer to his note for details. Patient is a 79-year-old female, who had transient episode of weakness and numbness. Cervical myelopathy was suspected. Patient has history of previous neck surgery. Orthopedics on board. Patient at present is sitting in the recliner. Patient states that she has history of neck surgery with placement of cage 7 years ago. Patient states that her arms feel like they are "50 pounds weight on each". This has been progressing for last "7 years", progressively getting worse. Patient states her feet feels off and she has "muscle cramps all over". Her hands and arms are numb. Feet also feels half-asleep. Some of the workup during this hospital visit consisted of: CBC with differential is unremarkable Sodium is 128 and the repeated is 127. On 03/04/2024 was as low as 119. CRP is less than 0.5. Calcium, magnesium, creatinine is within normal limits TSH: 2.45 B12: 587 CT of the head is reported as age-related atrophy and chronic small vessel ischemic change without acute intracranial process seen at this time. I personally reviewed the CT and agree with that. CT cervical: Surgical changes from the anterior cervical fusion C3-C7. Foraminal narrowing C4-C5 and C6-C7 Objective - Vital Signs Vital signs: Vital Signs Temp 98.0 F 04/28/24 07:17 Pulse 64 04/28/24 12:01 Resp 17 04/28/24 07:17 BP 136/71 04/28/24 07:17 Pulse Ox 93 L 04/28/24 08:36 FiO2 21 04/28/24 08:36 Intake & Output 04/27/24 04/28/24 04/28/24 18:59 06:59 18:59 Intake Total 780.268 Output Total 555 700 Balance 225.268 -700 Weight 73.3 kg Intake: IV 70 0.9 KVO 70 Intake, IV Titration 70.268 Amount Norepinephrine 4 mg In 70.268 Sodium Chloride 0.9% 250 ml @ 0.03 MCG/KG/MIN 8. 687 mls/hr IV .Q24H [facility] Rx#:[id number] Oral 640 Output: Urine 555 700 Other: Voiding Method Indwelling Catheter Indwelling Catheter Toilet ABP, PAP, CO, CI - Last Documented Arterial Blood Pressure 100/40 - Exam Patient's mental status, speech and language functions are normal. Cranial nerves are normal. On muscle strength testing the strength is (right/left) deltoid 3 3-/5, biceps 2/5, triceps 4+5-/5, case operator 4/5. Hip flexion 5-/5, ankle dorsiflexion 5/5. Patient able to supinate pronate her right arm, able to move at the elbow slightly better. Plantars are upgoing bilaterally. Sensory to touch is decreased in the right arm. - Labs CBC & Chem 7: 04/27/24 02:56 04/27/24 02:56 Labs: Abnormal Lab Results - Last 24 Hours (Table) 04/27/24 04/28/24 04/28/24 Range/Units 16:46 06:36 11:39 POC Glucose (mg/dL) 139 H 134 H 130 H (70-110) mg/dL Assessment and Plan Assessment: Status post occiput to T2 posterior cervical decompression fusion 04/25/2024 New onset right upper extremity weakness since surgery, improving. 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 Patient has developed right upper extremity weakness. Agree with starting steroids. Aggressive physical therapy. Right arm is slightly improved further as compared to yesterday. * MRI of the brain with and without contrast revealed no evidence of intracranial mass, acute/subacute infarct or abnormal enhancement. N onspecific white matter changes, likely related to small vessel ischemic disease. I personally reviewed MRI agree with the findings. * MRI of the cervical spine revealed cervical fusion from C3-C6. C6-7 disc preserved in height. No cervical stenosis or cervical cord abnormality. Multilevel neural foraminal stenosis. I personally reviewed MRI agree, and there is probable stenosis at high cervical spine at C2 level, although uncertain to its severity.. 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 Orthopedic surgery are planning surgical intervention that consists of occipital to T2 posterior decompression and fusion, that has been scheduled for 04/26/2024. * Patient is on Plavix 75 mg daily as well as Lipitor 80 mg daily. Plavix on hold for surgery. Resume Plavix when surgically cleared * B12 587, TSH 2.45, hemoglobin A1c 5.8. Folic acid 12.30 normal * DVT prophylaxis: Started on Lovenox 30 mg subcu daily. * Dr. Samy Guadalupe to resume neurology service in the morning.
[2024-04-28 16:37] LABS: Glucose,Whole Blood 192 mg/dL (70-110)
[2024-04-28 20:54] LABS: Glucose,Whole Blood 131 mg/dL (70-110)
[2024-04-29 06:39] LABS: Glucose,Whole Blood 116 mg/dL (70-110)
[2024-04-29 08:32] LABS: Basophils # (A) 0.01 X 10*3/uL (0.00-0.10); Basophils % (A) 0.1 %; Eosinophils # (A) 0 X 10*3/uL (0.04-0.35); Eosinophils % (A) 0 %; HCT 32.1 % (37.2-46.3); HGB 10.6 g/dL (12.0-15.0); Lymphocytes # (A) 1.34 X 10*3/uL (0.90-5.00); Lymphocytes % (A) 12.5 %; MCH 28.9 pg (27.0-32.0); MCV 87.5 FL (80.0-97.0); Mean Platelet Volume 10.9 FL (9.5-12.2); Monocytes # (A) 0.52 X 10*3/uL (0.20-1.00); Monocytes % (A) 4.9 %; NRBC Per 100 WBC 0 X 10*3/uL (0.00-0.01); Neutrophils # (A) 8.73 X 10*3/uL (1.80-7.70); Neutrophils % (A) 81.5 %; Platelet Count 233 X 10*3/uL (140-440); RBC 3.67 X 10*6/uL (4.10-5.20); WBC 10.71 X 10*3/uL (4.50-10.00)
[2024-04-29 09:06] LABS: ALT 32 U/L (8-44); AST 26 U/L (13-35); Albumin 3.5 g/dL (3.8-4.9); Albumin/Globulin Ratio 1.94 Ratio (1.60-3.17); Alkaline Phosphatase 74 U/L (41-126); BUN/Creat Ratio 47.17 Ratio (12.00-20.00); Blood Urea Nitrogen 28.3 mg/dL (9.0-27.0); Calcium 8.6 mg/dL (8.7-10.3); Carbon Dioxide 18.6 mmol/L (21.6-31.8); Chloride 102 mmol/L (96-109); Globulin 1.8 g/dL (1.6-3.3); Glucose 130 mg/dL (70-110); Sodium 134 mmol/L (135-145); Total Bilirubin 0.3 mg/dL (0.3-1.2); Total Protein 5.3 g/dL (6.2-8.2)
--- NOTE | 2024-04-29 11:08 | P.PN ---
Subjective Progress Note Date: 04/29/24 Principal diagnosis: Status post occiputT2 posterior decompression and fusion Patient evaluated today at bedside, she is on the medical/surgical floor at this time. Her right upper extremity symptoms continue to improve, the range of motion at the hand and wrist along with elbow are much improved. She is able to activate the deltoid muscle more today compared to the last few days. She has no headaches, lightheadedness, chest pain or shortness of breath. She denies any left upper extremity symptoms or bilateral lower extremity symptoms. Objective - Vital Signs Vital signs: Vital Signs Temp 98.0 F 04/29/24 07:20 Pulse 70 04/29/24 09:11 Resp 16 04/29/24 07:20 BP 139/69 04/29/24 07:20 Pulse Ox 95 04/29/24 09:02 FiO2 21 04/28/24 08:36 Intake & Output 04/28/24 04/29/24 04/29/24 18:59 06:59 18:59 Output Total 700 Balance -700 Output: Urine 700 Other: Voiding Method Toilet # Voids 3 # Bowel Movements 1 ABP, PAP, CO, CI - Last Documented Arterial Blood Pressure 100/40 - Exam Gen: AOx3, NAD VSS stable at this time Integument: Postop dressing is in good position and condition, no excessive fluid buildup is present on the posterior aspect of the neck Palpation: Tenderness with palpation to the posterior cervical spine ROM: Full range of motion in the left upper extremity, no focal deficits, full range of motion of the bilateral lower extremities, no focal deficits. Range of motion is limited to the right lower extremity due to C5 nerve palsy Sensory Exam: [place] exam to light touch is intact C5-T1 [place] exam to light touch is intact L2-S1 Motor: 4/5 strength appreciate the left upper extremity with shoulder abduction, shoulder elevation, elbow extension, elbow flexion, wrist extension, wrist flexion, burlap roll coverer 4/5 strength appreciated bilateral lower extremities with hip flexion, knee e xtension, knee flexion, plantarflexion, dorsiflexion, EHL, FHL Strength testing not assessed to the right upper extremity Reflexes: Positive Maxine's right, negative left Negative Babinski bilaterally Negative clonus bilaterally - Labs CBC & Chem 7: 04/29/24 03:02 04/29/24 03:02 Labs: Abnormal Lab Results - Last 24 Hours (Table) 04/28/24 04/28/24 04/28/24 Range/Units 11:39 16:35 20:53 WBC (4.50-10.00) X 10*3/uL RBC (4.10-5.20) X 10*6/uL Hgb (12.0-15.0) g/dL Hct (37.2-46.3) % Immature Gran # (0.00-0.04) X 10*3/uL Neutrophils # (1.80-7.70) X 10*3/uL Eosinophils # (0.04-0.35) X 10*3/uL Sodium (135-145) mmol/L Carbon Dioxide (21.6-31.8) mmol/L Anion Gap (4.00-12.00) mmol/L BUN (9.0-27.0) mg/dL BUN/Creatinine Ratio (12.00-20.00) Ratio Glucose (70-110) mg/dL POC Glucose (mg/dL) 130 H 192 H 131 H (70-110) mg/dL Calcium (8.7-10.3) mg/dL Total Protein (6.2-8.2) g/dL Albumin (3.8-4.9) g/dL 04/29/24 04/29/24 04/29/24 Range/Units 03:02 03:02 06:37 WBC 10.71 H (4.50-10.00) X 10*3/uL RBC 3.67 L (4.10-5.20) X 10*6/uL Hgb 10.6 L (12.0-15.0) g/dL Hct 32.1 L (37.2-46.3) % Immature Gran # 0.11 H (0.00-0.04) X 10*3/uL Neutrophils # 8.73 H (1.80-7.70) X 10*3/uL Eosinophils # 0 L (0.04-0.35) X 10*3/uL Sodium 134 L (135-145) mmol/L Carbon Dioxide 18.6 L (21.6-31.8) mmol/L Anion Gap 13.40 H (4.00-12.00) mmol/L BUN 28.3 H (9.0-27.0) mg/dL BUN/Creatinine Ratio 47.17 H (12.00-20.00) Ratio Glucose 130 H (70-110) mg/dL POC Glucose (mg/dL) 116 H (70-110) mg/dL Calcium 8.6 L (8.7-10.3) mg/dL Total Protein 5.3 L (6.2-8.2) g/dL Albumin 3.5 L (3.8-4.9) g/dL Assessment and Plan Assessment: Postoperative day #4 status post occiputT2 posterior lateral decompression and fusion C5 nerve palsy, right upper extremity Multiple medical comorbidities Plan: Pain control, continue with current medications GI and DVT prophylaxis, continue current medication Soft c-collar at all times Monitor surgical dressing Continue range of motion exercises with the right upper extremity PT/OT Weight-bear as tolerated with walker Other medical specialty recommendations appreciated Orthopedically patient remains stable for discharge and follow-up in the outpatient setting Time with Patient: Less than 30
[2024-04-29 11:27] LABS: Glucose,Whole Blood 111 mg/dL (70-110)
[2024-04-29] MEDS: DEXAMETHASONE SOD PHOSPHATE 4 MG/ML 1 ML VIAL IVP SCH (12:10)
--- NOTE | 2024-04-29 14:35 | P.PN ---
Subjective Progress Note Date: 04/29/24 Patient is a 79-year-old female with CAD, and for, heart failure, CVA/TIA, hyperlipidemia, hypertension presenting with headache and paresthesia. She states that she has been feeling numbness and tingling in both her upper extremities and lower extremities. She also feels numbness and tingling along with a headache on the occipital portion of her head. She states these symptoms have been going on for over a week. She states that her arms and legs feel heavy and that it has been constant and has not gone away. Patient denies any exacerbating or relieving factors. She describes her headache aching, burning pain. She was here last week undergoing treatment for congestive heart failure and hyponatremia. Patient reports of ongoing cough for the past month. She reports that there is sputum production. Denies any hemoptysis. Patient also notes of having suspicion of oral thrush likely from her inhalers. Patient reports of denies any fever, chills, syncope, trauma, nausea, vomiting, abdo radha pain, slurred speech. Admits to shortness of breath. EKG independently interpreted shows Brain CT shows age-related atrophic and chronic small vessel ischemic changes without acute intracranial process seen at this time Sodium 128, potassium 4.0 chloride 93, CO2 27, BUN 20, creatinine 0.81. T98.2 F, UT 89, RR 18, BP 96/61, O2 sat 92 percent on room air ED documentation reviewed. 04/21. Patient seen and examined. States sore throat has improved. Still complaining of headache. Blood work done showed WBC 10.13, hemoglobin 713.7, sodium 129, potassium 3.5, BUN 17.1, creatinine 0.9 04/22/2024 Patient seen in follow-up continues to be followed by multiple consultations awaiting to undergo MRI of the brain along with cervical spine with orthopedics following. Cardiology has been consulted for surgical clearance and although considered moderate to high risk given significant comorbidities, patient is willing to proceed with surgery as she continues to have persistent numbness and tingling with paresthesias of the upper extremities along with heaviness. Patient is afebrile with no reports of chest pain or shortness of breath. Patient does have a cough and will obtain a chest x-ray. 04/23/2024 Patient is seen and evaluated in follow-up today and per orthopedics is tent atively scheduled for surgery on 04/26/2024. Patient continues to report paresthesia and heaviness of her upper extremities with constant tingling. Cardiology consulted for medical clearance. Chest x-ray showing no acute process and patient currently maintained on room air. Patient is afebrile with no reports of chest pain or shortness of breath. Patient has been tolerating diet with no reported nausea or vomiting. 04/24/2024 Patient is seen in follow-up today with orthopedics following closely. Patient will be scheduled for decompression and fusion on 04/26/[address] Butterfield. Patient is maintained on IV Lasix for some mild volume overload and lower extremity edema and is improving. Continue with DuoNeb treatments and other medications. Patient potassium remains 3.5 and will replace per protocol and recommend daily supplementation. Patient is afebrile with no reports of chest pain or shortness of breath. Patient has been tolerating diet with no reported nausea or vomiting. Continue bowel regimen scheduled and as needed. 04/25/2024 Eval today in follow-up sitting up in the chair. She is not reporting any shortness of breath or chest discomfort. Patient is continued on IV Lasix and has had further improvement in her sodium level currently 132. Patient was cl eared by cardiology to undergo surgical intervention with overall benefits outweigh the risks. Surgery has been moved up to this afternoon. Patient does continue to report a dry hacking cough has been ongoing for the last 6 weeks. She is receiving a combination of Robitussin and Mucinex for this we will add Tessalon Perles and Cepacol lozenge. 04/26/2024 Patient is seen in follow-up in the ICU status post occipital cervical posterior lateral fusion of C1-2, C2-T2 with orthopedics yesterday. Patient is in the ICU due to hypotension requiring Levophed currently. Blood pressures have improved and recommend weaning Levophed and per nursing staff awaiting further recommendations from orthopedics regarding Levophed. Soft cervical collar noted as patient was unable to tolerate the hard collar due to fit. Patient reports she has minimal feeling and functioning in her right upper extremity and awaiting PT/OT therapy evaluation. Patient is afebrile with no reports of chest pain or shortness of breath. Patient awaiting to eat although denies any nausea or vomiting. 04/27. Patient seen and examined. States right upper extremity weakness has improved slightly compared to yesterday. States she is able to lift her right arm better. 04/28. Patient seen and examined. Continues to state that right upper extremity strength is improved. 04/29/2024 Patient seen and examined. No acute events overnight. Patient has been using incentive spirometer. she states that right upper extremity weakness has imporved. Still rates currenty pain 02/16. States she has not been seen by PT as of yet. REVIEW OF SYSTEMS: CONSTITUTIONAL: No fever, no malaise,. CARDIOVASCULAR: No chest pain, no palpitations, no syncope. PULMONARY: No shortness of breath, no cough, GASTROINTESTINAL: No diarrhea, no nausea, no vomiting, no abdominal pain. NEUROLOGICAL: As mentioned above PHYSICAL EXAMINATION: GENERAL: The patient is alert and oriented x3, ill looking, cervical collar in place HEENT: Pupils are round and equally reacting to light. EOMI. No scleral icterus. No conjunctival pallor. Normocephalic, atraumatic. No pharyngeal erythema. No thyromegaly. CARDIOVASCULAR: S1 and S2 present. No murmurs, rubs, or gallops. PULMONARY: Chest is clear to auscultation, no wheezing or crackles. ABDOMEN: Soft, nontender, nondistended, normoactive bowel sounds. No palpable organomegaly. MUSCULOSKELETAL: No joint swelling or deformity. EXTREMITIES: No cyanosis, clubbing, or pedal edema. NEUROLOGICAL: Left upper extremity 4 x 5, right upper extremity 3 x 5, muscle st rength5 x 5 lower extremities SKIN: Surgical incision seen, drain in place Assessment and Plan #. Headache, left occipital #. Bilateral upper and lower extremity paresthesias Hypotension Acute COPD exacerbation #. Cough #. Shortness of breath #. Hyponatremia #. Oral thrush CHF not in acute exacerbation History of CAD Anxiety/depression Monitor vital signs Monitor CBC Monitor CMP status post occipital cervical posterior lateral fusion of C1-2, C2-T2 Continue IV Decadron Continue pain management with as needed [place] continue range of motion exercises with the right upper extremity Continue Lasix, Aldactone Orthopedic following 04/29/2024 status post occipital cervical posterior lateral fusion of C1-2, C2-T2 Patient was seen by physical therapy today. PT is recommending rehab, patient agrees Seen by kaykay crenshaw today regarding dispo to [facility], pending authorization. Patient requesting [facility]. Continue IV Decadron Continue pain management with as needed [place] continue range of motion exercises with the right upper extremity Continue Lasix, Aldactone Monitor vital signs, CBC, CMP Orthopedic following Labs and medication were reviewed.. Continue same treatment. Continue with sy mptomatic treatment. Resume home medication. Monitor labs and vitals. DVT and GI prophylaxis. Further recommendations as per clinical course of the patient Dictation was produced using [employer] dictation software. please excuse any grammatical, word or spelling errors. Objective - Vital Signs Vital signs: Vital Signs Temp 98.0 F 04/29/24 07:20 Pulse 67 04/29/24 07:20 Resp 16 04/29/24 07:20 BP 139/69 04/29/24 07:20 Pulse Ox 96 04/29/24 07: FiO2 04/28/24 08:36 Intake & Output 04/28/24 04/29/24 04/29/24 18:59 06:59 18:59 Output Total 700 Balance -700 Output: Urine 700 Other: Voiding Method Toilet # Voids 3 # Bowel Movements 1 ABP, PAP, CO, CI - Last Documented Arterial Blood Pressure 100/40 - Labs CBC & Chem 7: 04/29/24 03:02 04/29/24 03:02 Labs: Abnormal Lab Results - Last 24 Hours (Table) 04/28/24 04/28/24 04/28/24 Range/Units 11:39 16:35 20:53 WBC (4.50-10.00) X 10*3/uL RBC (4.10-5.20) X 10*6/uL Hgb (12.0-15.0) g/dL Hct (37.2-46.3) % Immature Gran # (0.00-0.04) X 10*3/uL Neutrophils # (1.80-7.70) X 10*3/uL Eosinophils # (0.04-0.35) X 10*3/uL POC Glucose (mg/dL) 130 H 192 H 131 H (70-110) mg/dL 04/29/24 04/29/24 Range/Units 03:02 06:37 WBC 10.71 H (4.50-10.00) X 10*3/uL RBC 3.67 L (4.10-5.20) X 10*6/uL Hgb 10.6 L (12.0-15.0) g/dL Hct 32.1 L (37.2-46.3) % Immature Gran # 0.11 H (0.00-0.04) X 10*3/uL Neutrophils # 8.73 H (1.80-7.70) X 10*3/uL Eosinophils # 0 L (0.04-0.35) X 10*3/uL POC Glucose (mg/dL) 116 H (70-110) mg/dL
--- NOTE | 2024-04-29 14:56 | P.PN ---
Subjective Progress Note Date: 04/29/24 Patient is a 79-year-old female with past medical history significant for coronary artery disease, heart failure, valvular heart disease, CVA/TIA, hyperlipidemia, hypertension, prior C-spine surgery, among other things. She presented to the emergency department back on 04/19/2024 with a chief complaint of left occipital headache and associated cervical radiculopathy symptoms. CT of the cervical spine demonstrated previous postsurgical changes and anterior cervical fusion of C3-C7 and foraminal narrowing of C4-C5 and C6-C7. Cervical spine MRI demonstrated multilevel neural foraminal stenosis at levels of C3-C6. Brain MRI did not show any acute findings. Patient has since been evaluated by orthopedic surgery. Patient underwent occiput to T2 posterior cervical decompression fusion late last night. She was sent to the intensive care unit for recovery. Patient is currently in room 267, she was extubated in recovery. She is currently drowsy, but able to answer all my questions appropriately. Her right upper extremity is flaccid. The surgeon was made aware, and patient was given a dose of Decadron. Patient was also started on norepinephrine to increase spinal cord perfusion pressure. Levophed currently on 0.02 mcg/kg/min. C-spine x-ray postoperatively did not show any evidence of intraoperative complications. She is on 8 L high flow cannula. She is tachypneic. Denies significant shortness of breath. Postoperative chest x-ray shows low lung volumes with increased interstitial pattern and cardiomegaly. She is currently receiving a pack of PRBCs. Patient will be given a dose of Lasix. There is a Hemovac originating from the left cervical region. There is also a wound VAC in place with no drainage. Preoperative CBC: WBC count 9, hemoglobin 13.9, hematocrit 42, platelets 258. Preoperative CMP: Sodium 132, potassium 4.1, chloride 96, serum bicarb 24, BUN 18, creatinine 0.9, glucose 100. LFTs unremarkable. Current vital signs temperature 97.9 F, heart rate 97 bpm, blood pressure 127/78 mmHg, respiratory rate in the high 20s, SpO2 97% on 9 L high flow. Patient will undergo postoperative CT of the cervical spine. 04/27/2024, the patient is being seen for a follow-up. The patient is awake and alert. The patient is currently off pressors. No significant bleeding from the Hemovac in the surgical wound site over the neck area is dry clean and intact. The patient is awake and alert. She is still having weakness in her extremities specially in the right upper extremity and the patient remains on Decadron. No other significant events overnight. The patient is currently on 2 L oxygen with a pulse ox of 93%. The white cell count of 19.6 with a hemoglobin 10.7 and a platelet count of 248. BUN is 26 with a creatinine of 0.66 and a sodium level of 131 with a potassium level of 4.5. No other new events overnight. The patient is still recovering from her neck surgery. 04/28/2024, patient is calm and comfortable. Extremity weakness is improving s lowly on a daily basis. She remains on Decadron. No respiratory difficulties and the patient is currently on room air oxygen with a pulse ox of 93%. No new labs from today and the most recent labs are from yesterday. Medications are unchanged and the patient got transferred out of the intensive care unit and the patient remains to be stable. Still on a combination of Lasix and Aldactone. [place] for pain control. Remains on Decadron 4 mg every 4 hours and the patient and his on laxative. Surgical wound site over the neck area is dry clean and intact. The patient is seen today April 29, 2024 in follow-up on the regular medical floor. She is currently sitting up in a chair. C-collar in place. Awake and alert in no acute distress. She is maintaining good O2 saturation in the mid 9 0s on room air. She has been afebrile. Hemodynamically stable. She is status post 1 unit of packed red blood cells this admission. Current hemoglobin 10.6. White count 10.7. Platelets 233. Sodium 134. Potassium 5.0. Bicarb 19. BUN 28. Creatinine 0.6. Glucose 130. She remains on diuretics. Remains on Decadron. Objective - Vital Signs Vital signs: Vital Signs Temp 98.2 F 04/29/24 14:00 Pulse 72 04/29/24 14:00 Resp 17 04/29/24 14:00 BP 125/74 04/29/24 14:00 Pulse Ox 95 04/29/24 14:00 FiO2 21 04/28/24 08:36 Intake & Output 04/28/24 04/29/24 04/29/24 18:59 06:59 18:59 Output Total 700 Balance -700 Output: Urine 700 Other: Voiding Method Toilet Toilet # Voids 3 # Bowel Movements 1 ABP, PAP, CO, CI - Last Documented Arterial Blood Pressure 100/40 - Exam GENERAL EXAM: Alert, pleasant 79-year-old female, c-collar in place, up in a chair, on room air, comfortable in no apparent distress. HEAD: Normocephalic. EYES: Normal reaction of pupils, equal size. NOSE: Clear with pink turbinates. THROAT: No erythema or exudates. NECK: No masses, no JVD. CHEST: No chest wall deformity. LUNGS: Equal air entry with no crackles, wheeze, rhonchi or dullness. CVS: S1 and S2 normal with no audible murmur, regular rhythm. ABDOMEN: No hepatosplenomegaly, normal bowel sounds, no guarding or rigidity. SPINE: No scoliosis or deformity SKIN: No rashes CENTRAL NERVOUS SYSTEM: No focal deficits, tone is normal in all 4 extremities. EXTREMITIES: There is no peripheral edema. No clubbing, no cyanosis. Peripheral pulses are intact. - Labs CBC & Chem 7: 04/29/24 03:02 04/29/24 03:02 Labs: Abnormal Lab Results - Last 24 Hours (Table) 04/28/24 04/28/24 04/29/24 Range/Units 16:35 20:53 03:02 WBC 10.71 H (4.50-10.00) X 10*3/uL RBC 3.67 L (4.10-5.20) X 10*6/uL Hgb 10.6 L (12.0-15.0) g/dL Hct 32.1 L (37.2-46.3) % Immature Gran # 0.11 H (0.00-0.04) X 10*3/uL Neutrophils # 8.73 H (1.80-7.70) X 10*3/uL Eosinophils # 0 L (0.04-0.35) X 10*3/uL Sodium (135-145) mmol/L Carbon Dioxide (21.6-31.8) mmol/L Anion Gap (4.00-12.00) mmol/L BUN (9.0-27.0) mg/dL BUN/Creatinine Ratio (12.00-20.00) Ratio Glucose (70-110) mg/dL POC Glucose (mg/dL) 192 H 131 H (70-110) mg/dL Calcium (8.7-10.3) mg/dL Total Protein (6.2-8.2) g/dL Albumin (3.8-4.9) g/dL 04/29/24 04/29/24 04/29/24 Range/Units 03:02 06:37 11:25 WBC (4.50-10.00) X 10*3/uL RBC (4.10-5.20) X 10*6/uL Hgb (12.0-15.0) g/dL Hct (37.2-46.3) % Immature Gran # (0.00-0.04) X 10*3/uL Neutrophils # (1.80-7.70) X 10*3/uL Eosinophils # (0.04-0.35) X 10*3/uL Sodium 134 L (135-145) mmol/L Carbon Dioxide 18.6 L (21.6-31.8) mmol/L Anion Gap 13.40 H (4.00-12.00) mmol/L BUN 28.3 H (9.0-27.0) mg/dL BUN/Creatinine Ratio 47.17 H (12.00-20.00) Ratio Glucose 130 H (70-110) mg/dL POC Glucose (mg/dL) 116 H 111 H (70-110) mg/dL Calcium 8.6 L (8.7-10.3) mg/dL Total Protein 5.3 L (6.2-8.2) g/dL Albumin 3.5 L (3.8-4.9) g/dL Assessment and Plan Assessment: Status postoperative day # 3 following an occiput to T2 posterior cervical de compression fusion Right arm weakness, somewhat improved yet the right upper extremity remains weak . The patient remains on Decadron. Multilevel neural foraminal stenosis at levels of C3-C6 and cervical radiculopathy symptoms Acute hypoxemic respiratory failure, postoperative chest x-ray showing low lung volumes, cardiomegaly, interstitial prominence. Clinically improved and the patient is using the incentive spirometer, currently on 2 L of oxygen nasal cannula History of asthma, stable History of prior anterior cervical spine decompression and fusion History of CVA/TIA History of hyperlipidemia History of hypertension History of diastolic heart failure and valvular heart disease, recent echocardiogram done February 2024 estimating a left ventricular ejection fraction of 55 to 60% as well as moderate aortic stenosis History of coronary artery disease, status post double vessel CABG Plan: The patient was seen and evaluated Labs and medications reviewed Stable and on room air Plan is for subacute rehab at discharge I have personally seen and examined the patient, performed the documentation and the assessment and plan as written. Number of minutes spent on the visit: 10 Dictation was produced using [employer] dictation software. Please excuse any grammatical, word or spelling errors.
[2024-04-29 16:26] LABS: Glucose,Whole Blood 115 mg/dL (70-110)
--- NOTE | 2024-04-29 16:52 | P.PN ---
Subjective Progress Note Date: 04/29/24 I initially saw the patient during this admission on 04/20/2024 and I felt the patient has cervical myelopathy. She had MRI of the brain which was unremarkable. She also had MRI of the cervical spine and ended up having us both to T2 posterior cervical decompression and fusion on 04/25/2024. Seems after the surgery patient had significant right upper extremity weakness but that is slightly improving. Denies of any new neurological issues. Objective - Vital Signs Vital signs: Vital Signs Temp 98.2 F 04/29/24 14:00 Pulse 72 04/29/24 16:35 Resp 17 04/29/24 14:00 BP 125/74 04/29/24 14:00 Pulse Ox 95 04/29/24 14:00 FiO2 21 04/28/24 08:36 Intake & Output 04/28/24 04/29/24 04/29/24 18:59 06:59 18:59 Output Total 700 Balance -700 Output: Urine 700 Other: Voiding Method Toilet Toilet # Voids 3 # Bowel Movements 1 ABP, PAP, CO, CI - Last Documented Arterial Blood Pressure 100/40 - Exam General: Sitting in recliner chair and is not in acute distress. Neuro: Alert oriented to self place and time. Is on simple commands. No aphasia no n eglect. Pupils are round equal reactive to light. Visual lópez are full to confrontation. No facial weakness. No dysarthria Motor the strength in the right upper extremity is right forearm flexion is about a 3-4 while extension was about a 2-3. Right hand scrummaster is about a 4. Left upper extremities 5 out of 5. Lower extremity is 5 out of 5 - Labs CBC & Chem 7: 04/29/24 03:02 04/29/24 03:02 Labs: Abnormal Lab Results - Last 24 Hours (Table) 04/28/24 04/29/24 04/29/24 Range/Units 20:53 03:02 03:02 WBC 10.71 H (4.50-10.00) X 10*3/uL RBC 3.67 L (4.10-5.20) X 10*6/uL Hgb 10.6 L (12.0-15.0) g/dL Hct 32.1 L (37.2-46.3) % Immature Gran # 0.11 H (0.00-0.04) X 10*3/uL Neutrophils # 8.73 H (1.80-7.70) X 10*3/uL Eosinophils # 0 L (0.04-0.35) X 10*3/uL Sodium 134 L (135-145) mmol/L Carbon Dioxide 18.6 L (21.6-31.8) mmol/L Anion Gap 13.40 H (4.00-12.00) mmol/L BUN 28.3 H (9.0-27.0) mg/dL BUN/Creatinine Ratio 47.17 H (12.00-20.00) Ratio Glucose 130 H (70-110) mg/dL POC Glucose (mg/dL) 131 H (70-110) mg/dL Calcium 8.6 L (8.7-10.3) mg/dL Total Protein 5.3 L (6.2-8.2) g/dL Albumin 3.5 L (3.8-4.9) g/dL 04/29/24 04/29/24 04/29/24 Range/Units 06:37 11:25 16:24 WBC (4.50-10.00) X 10*3/uL RBC (4.10-5.20) X 10*6/uL Hgb (12.0-15.0) g/dL Hct (37.2-46.3) % Immature Gran # (0.00-0.04) X 10*3/uL Neutrophils # (1.80-7.70) X 10*3/uL Eosinophils # (0.04-0.35) X 10*3/uL Sodium (135-145) mmol/L Carbon Dioxide (21.6-31.8) mmol/L Anion Gap (4.00-12.00) mmol/L BUN (9.0-27.0) mg/dL BUN/Creatinine Ratio (12.00-20.00) Ratio Glucose (70-110) mg/dL POC Glucose (mg/dL) 116 H 111 H 115 H (70-110) mg/dL Calcium (8.7-10.3) mg/dL Total Protein (6.2-8.2) g/dL Albumin (3.8-4.9) g/dL Assessment and Plan Assessment: This is a 79-year-old woman with multiple medical issues including skin cancer who presents to the emergency department because of episode of bilateral upper and lower extremity weakness and she fell yesterday felt like Jell-O as well as complaining of left neck pain and less of occipital pain. She has history of surgery in which she had a cage placed about 5 years ago. She was recently discharged with hyponatremia and congestive heart failure and she stated that she was discharged about 2 days ago. Cervical myelopathy s/p Status post occiput to T2 posterior cervical decompression fusion 04/25/2024 New onset right upper extremity weakness since surgery--slight improvement History of stroke/TIA and she stated happened as a kid Congestive heart failure History of skin cancer History of coronary artery disease status post CABG History of chronic neck pain and had a cage placed about 5 years ago Plan: * She is on Decadron 2mg every 4 hours. Recommend Aggressive physical therapy. She will benefit from inpatient rehab. * If after rehab, she continues to have weakness, recommend EMG with NCS of the upper extremities as outpatient and recommend to follow-up with neurologist as outpatient. * MRI of the brain with and without contrast revealed no evidence of intracranial mass, acute/subacute infarct or abnormal enhancement. Nonspecifi c white matter changes, likely related to small vessel ischemic disease. I personally reviewed MRI agree with the findings. * MRI of the cervical spine revealed cervical fusion from C3-C6. C6-7 disc preserved in height. No cervical stenosis or cervical cord abnormality. M ultilevel neural foraminal stenosis. I personally reviewed MRI agree, and there is probable stenosis at high cervical spine at C2 level, although uncertain to its severity.. * Patient is on Plavix 75 mg daily as well as Lipitor 80 mg daily. Plavix on hold for surgery. Resume Plavix when surgically cleared * B12 587, TSH 2.45, hemoglobin A1c 5.8. Folic acid 12.30 normal * DVT prophylaxis: We will defer to primary care/orthopedic surgery. There is no further neurological work-up. Will sign off. Please reconsult if needed. Time with Patient: Less than 30
[2024-04-29 21:03] LABS: Glucose,Whole Blood 146 mg/dL (70-110)
[2024-04-29] MEDS: BENZONATATE 100 MG CAP PO PRN (21:48)
[2024-04-29] MEDS ORDERED: ZINC OXIDE PASTE (Z-GUARD) 1 APPLIC TOPICAL PRN (22:38)
[2024-04-30 06:47] LABS: Glucose,Whole Blood 105 mg/dL (70-110)
[2024-04-30 08:53] LABS: HCT 32.7 % (37.2-46.3); HGB 10.9 g/dL (12.0-15.0); MCH 29.5 pg (27.0-32.0); MCHC 33.3 g/dL (32.0-37.0); MCV 88.4 FL (80.0-97.0); Mean Platelet Volume 10.7 FL (9.5-12.2); NRBC Per 100 WBC 0 X 10*3/uL (0.00-0.01); Platelet Count 260 X 10*3/uL (140-440); RDW 13.9 % (11.5-14.5); WBC 10.17 X 10*3/uL (4.50-10.00)
[2024-04-30 09:03] LABS: Magnesium 2.3 mg/dL (1.5-2.4)
[2024-04-30 09:13] LABS: ALT 31 U/L (8-44); AST 23 U/L (13-35); Albumin 3.6 g/dL (3.8-4.9); Albumin/Globulin Ratio 1.89 Ratio (1.60-3.17); Alkaline Phosphatase 68 U/L (41-126); BUN/Creat Ratio 43.67 Ratio (12.00-20.00); Blood Urea Nitrogen 26.2 mg/dL (9.0-27.0); Calcium 8.8 mg/dL (8.7-10.3); Carbon Dioxide 22.1 mmol/L (21.6-31.8); Chloride 104 mmol/L (96-109); Globulin 1.9 g/dL (1.6-3.3); Glucose 106 mg/dL (70-110); Potassium 4.9 mmol/L (3.5-5.5); Sodium 135 mmol/L (135-145); Total Bilirubin 0.5 mg/dL (0.3-1.2); Total Protein 5.5 g/dL (6.2-8.2)
[2024-04-30] MEDS: DEXAMETHASONE SOD PHOSPHATE 4 MG/ML 1 ML VIAL IVP SCH (10:03)
[2024-04-30 11:49] LABS: Glucose,Whole Blood 102 mg/dL (70-110)
--- NOTE | 2024-04-30 13:05 | P.PN ---
Subjective Progress Note Date: 04/30/24 Principal diagnosis: neck pain bilateral upper extremity weakness bilateral upper extremity radiculopathy Patient seen and examined this morning. Patient is resting comfortably in bed. She Does report that her pain is managed on current regimen. Patient does continue to report right upper extremity numbness and tingling. Continue to encourage patient to do gentle range of motion exercises and to utilize a stress ball in the right hand. Surgical dressing to the posterior cervical spine is clean dry and intact. Hard cervical collar is present. Discussed with patient the possibility of discharge to subacute rehab later today. Patient verbalizes understanding. No acute concerns at this time. Objective - Vital Signs Vital signs: Vital Signs Temp 97.6 F 04/30/24 01:17 Pulse 58 L 04/30/24 01:17 Resp 15 04/30/24 01:17 BP 139/73 04/30/24 01:17 Pulse Ox 96 04/30/24 01:17 FiO2 21 04/28/24 08:36 Intake & Output 04/29/24 04/30/24 04/30/24 18:59 06:59 18:59 Intake Total 480 Balance 480 Weight 22 kg Intake: Oral 480 Other: Voiding Method Toilet Toilet # Voids 4 2 ABP, PAP, CO, CI - Last Documented Arterial Blood Pressure 100/40 - Exam Physical Examination General: The patient is awake and alert, in no acute distress Skin: Skin is warm and dry with no obvious rashes or lesions. Surgical incision to the posterior cervical spine, dressing is clean dry and intact. Eye: Pupils are equal, round and reactive to light, extra-ocular movements are intact; there is normal conjunctiva bilaterally. Neck: The neck is supple, there is tenderness to palpation around the incision site. Limited range of motion due to surgical procedure. Hard cervical collar is intact. Cardiovascular: There is a regular rate and rhythm. No murmur, rub or gallop is appreciated. Respiratory: Respirations are non-labored, breath sounds are equal. Gastrointestinal: Soft, non-distended, non-tender abdomen. Back: There is no tenderness to palpation in the midline, paralumbar, parathoracic or buttocks region. There is no obvious deformity . Musculoskeletal: ROM limited secondary to pain and stiffness from surgical procedure. Right: Shoulder abduction 3/5, elbow flexors 4/5, wrist dorsiflexors 4/5. finger abductor 4/5, new car sales manager 4/5, hip flexor 4/5, knee flexor 4/5, ankle dorsiflexor 4/5, ankle plantarflexion 4/5 and extensor hallucis 4/5. Left: Shoulder abduction 5/5, elbow flexors 5/5, wrist dorsiflexors 5/5. finger abductor 5/5, new car sales manager 5/5, hip flexor 4/5, knee flexor 4/5, ankle dorsiflexor 4/5, ankle plantarflexion 4/5 and extensor hallucis 4/5. Neurological: CN 2-12 intact. There are no obvious motor or sensory deficits. Movement and coordination equal and intact. Sensory exam to light touch intact C5-T1 and intact from L2-S1. Reflexes 2/4 in bilateral upper and lower extremities. Negative Hoffmans, babinski, and clonus signs. Psychiatric: Cooperative, appropriate mood & affect, normal judgment. - Labs CBC & Chem 7: 04/30/24 03:05 04/30/24 03:05 Labs: Abnormal Lab Results - Last 24 Hours (Table) 04/29/24 04/29/24 04/29/24 Range/Units 03:02 03:02 11:25 WBC 10.71 H (4.50-10.00) X 10*3/uL RBC 3.67 L (4.10-5.20) X 10*6/uL Hgb 10.6 L (12.0-15.0) g/dL Hct 32.1 L (37.2-46.3) % Immature Gran # 0.11 H (0.00-0.04) X 10*3/uL Neutrophils # 8.73 H (1.80-7.70) X 10*3/uL Eosinophils # 0 L (0.04-0.35) X 10*3/uL Sodium 134 L (135-145) mmol/L Carbon Dioxide 18.6 L (21.6-31.8) mmol/L Anion Gap 13.40 H (4.00-12.00) mmol/L BUN 28.3 H (9.0-27.0) mg/dL BUN/Creatinine Ratio 47.17 H (12.00-20.00) Ratio Glucose 130 H (70-110) mg/dL POC Glucose (mg/dL) 111 H (70-110) mg/dL Calcium 8.6 L (8.7-10.3) mg/dL Total Protein 5.3 L (6.2-8.2) g/dL Albumin 3.5 L (3.8-4.9) g/dL 04/29/24 04/29/24 Range/Units 16:24 21:01 WBC (4.50-10.00) X 10*3/uL RBC (4.10-5.20) X 10*6/uL Hgb (12.0-15.0) g/dL Hct (37.2-46.3) % Immature Gran # (0.00-0.04) X 10*3/uL Neutrophils # (1.80-7.70) X 10*3/uL Eosinophils # (0.04-0.35) X 10*3/uL Sodium (135-145) mmol/L Carbon Dioxide (21.6-31.8) mmol/L Anion Gap (4.00-12.00) mmol/L BUN (9.0-27.0) mg/dL BUN/Creatinine Ratio (12.00-20.00) Ratio Glucose (70-110) mg/dL POC Glucose (mg/dL) 115 H 146 H (70-110) mg/dL Calcium (8.7-10.3) mg/dL Total Protein (6.2-8.2) g/dL Albumin (3.8-4.9) g/dL Assessment and Plan Assessment: Postop day 5: OccipitalT2 decompression and fusion Plan: -Appreciate advanced manufacturing consultant and team management. -Activity: Ambulate QID, OOB all meals, up and about, limit lifting bending twisting to less than 5 lbs. Use walker or cane if needed for stability. -Daily PT/OT, increase ambulation strength and balance. - Hard cervical collar at all times, may remove for showers. -Pain control: Adequate at this time -Meds: reviewed -GI ppx: senna, Miralax -DVT PPX: Plavix -Hygiene: Maintain incision clean and dry, change dressings as needed. -Encourage IS 10x/hr -Dispo: Anticipate discharge to subacute rehab when medically cleared *I reviewed and discussed this case with my attending Dr. Butterfield, whom has reviewed this chart and films and is in agreement with assessment and plan of care as outlined above. I have personally seen and examined the patient, performed the documentation and the assessment and plan as written. Number of minutes spent on the visit: 20m.
[2024-04-30 13:09] VITALS: RESP 18
--- NOTE | 2024-04-30 14:19 | P.PN ---
Subjective Progress Note Date: 04/30/24 Patient is a 79-year-old female with past medical history significant for coronary artery disease, heart failure, valvular heart disease, CVA/TIA, hyperlipidemia, hypertension, prior C-spine surgery, among other things. She presented to the emergency department back on 04/19/2024 with a chief complaint of left occipital headache and associated cervical radiculopathy symptoms. CT of the cervical spine demonstrated previous postsurgical changes and anterior cervical fusion of C3-C7 and foraminal narrowing of C4-C5 and C6-C7. Cervical spine MRI demonstrated multilevel neural foraminal stenosis at levels of C3-C6. Brain MRI did not show any acute findings. Patient has since been evaluated by orthopedic surgery. Patient underwent occiput to T2 posterior cervical decompression fusion late last night. She was sent to the intensive care unit for recovery. Patient is currently in room 267, she was extubated in recovery. She is currently drowsy, but able to answer all my questions appropriately. Her right upper extremity is flaccid. The surgeon was made aware, and patient was given a dose of Decadron. Patient was also started on norepinephrine to increase spinal cord perfusion pressure. Levophed currently on 0.02 mcg/kg/min. C-spine x-ray postoperatively did not show any evidence of intraoperative complications. She is on 8 L high flow cannula. She is tachypneic. Denies significant shortness of breath. Postoperative chest x-ray shows low lung volumes with increased interstitial pattern and cardiomegaly. She is currently receiving a pack of PRBCs. Patient will be given a dose of Lasix. There is a Hemovac originating from the left cervical region. There is also a wound VAC in place with no drainage. Preoperative CBC: WBC count 9, hemoglobin 13.9, hematocrit 42, platelets 258. Preoperative CMP: Sodium 132, potassium 4.1, chloride 96, serum bicarb 24, BUN 18, creatinine 0.9, glucose 100. LFTs unremarkable. Current vital signs temperature 97.9 F, heart rate 97 bpm, blood pressure 127/78 mmHg, respiratory rate in the high 20s, SpO2 97% on 9 L high flow. Patient will undergo postoperative CT of the cervical spine. 04/27/2024, the patient is being seen for a follow-up. The patient is awake and alert. The patient is currently off pressors. No significant bleeding from the Hemovac in the surgical wound site over the neck area is dry clean and intact. The patient is awake and alert. She is still having weakness in her extremities specially in the right upper extremity and the patient remains on Decadron. No other significant events overnight. The patient is currently on 2 L oxygen with a pulse ox of 93%. The white cell count of 19.6 with a hemoglobin 10.7 and a platelet count of 248. BUN is 26 with a creatinine of 0.66 and a sodium level of 131 with a potassium level of 4.5. No other new events overnight. The patient is still recovering from her neck surgery. 04/28/2024, patient is calm and comfortable. Extremity weakness is improving s lowly on a daily basis. She remains on Decadron. No respiratory difficulties and the patient is currently on room air oxygen with a pulse ox of 93%. No new labs from today and the most recent labs are from yesterday. Medications are unchanged and the patient got transferred out of the intensive care unit and the patient remains to be stable. Still on a combination of Lasix and Aldactone. [place] for pain control. Remains on Decadron 4 mg every 4 hours and the patient and his on laxative. Surgical wound site over the neck area is dry clean and intact. The patient is seen today April 29, 2024 in follow-up on the regular medical floor. She is currently sitting up in a chair. C-collar in place. Awake and alert in no acute distress. She is maintaining good O2 saturation in the mid 9 0s on room air. She has been afebrile. Hemodynamically stable. She is status post 1 unit of packed red blood cells this admission. Current hemoglobin 10.6. White count 10.7. Platelets 233. Sodium 134. Potassium 5.0. Bicarb 19. BUN 28. Creatinine 0.6. Glucose 130. She remains on diuretics. Remains on Decadron. The patient is seen today April 30, 2024 in follow-up on the regular medical floor. She is currently sitting up in a chair at the bedside. Awake and alert in no acute distress. She is working well with the incentive spirometer. She is maintaining good O2 saturations in the 90s on room air. C-Collar in place. She denies any shortness of breath, cough or congestion. Her pain is well- managed. White count 10.1. Hemoglobin 10.9. Platelets 260. Sodium 135. Potassium 4.9. Bicarb 22. BUN 26. Creatinine 0.6. Glucose 106. She remains on IV Decadron. Continued on diuretics. Continued on bronchodilators and cough suppressant as needed. Objective - Vital Signs Vital signs: Vital Signs Temp 97.9 F 04/30/24 13:09 Pulse 74 04/30/24 13:09 Resp 18 04/30/24 13:09 BP 119/72 04/30/24 13:09 Pulse Ox 99 04/30/24 13:09 FiO2 21 04/28/24 08:36 Intake & Output 04/29/24 04/30/24 04/30/24 18:59 06:59 18:59 Intake Total 480 Balance 480 Weight 22 kg Intake: Oral 480 Other: Voiding Method Toilet Toilet Toilet # Voids 4 2 1 ABP, PAP, CO, CI - Last Documented Arterial Blood Pressure 100/40 - Exam GENERAL EXAM: Alert, 79-year-old female, c-collar in place, up in a chair, on room air, in no apparent distress. HEAD: Normocephalic. EYES: Normal reaction of pupils, equal size. NOSE: Clear with pink turbinates. THROAT: No erythema or exudates. NECK: No masses, no JVD. CHEST: No chest wall deformity. LUNGS: Equal air entry with no crackles, wheeze, rhonchi or dullness. CVS: S1 and S2 normal with no audible murmur, regular rhythm. ABDOMEN: No hepatosplenomegaly, normal bowel sounds, no guarding or rigidity. SPINE: No scoliosis or deformity SKIN: No rashes CENTRAL NERVOUS SYSTEM: No focal deficits, tone is normal in all 4 extremities. EXTREMITIES: There is no peripheral edema. No clubbing, no cyanosis. Pe ripheral pulses are intact. - Labs CBC & Chem 7: 04/30/24 03:05 04/30/24 03:05 Labs: Abnormal Lab Results - Last 24 Hours (Table) 04/29/24 04/29/24 04/30/24 Range/Units 16:24 21:01 03:05 WBC 10.17 H (4.50-10.00) X 10*3/uL RBC 3.70 L (4.10-5.20) X 10*6/uL Hgb 10.9 L (12.0-15.0) g/dL Hct 32.7 L (37.2-46.3) % BUN/Creatinine Ratio (12.00-20.00) Ratio POC Glucose (mg/dL) 115 H 146 H (70-110) mg/dL Total Protein (6.2-8.2) g/dL Albumin (3.8-4.9) g/dL 04/30/24 Range/Units 03:05 WBC (4.50-10.00) X 10*3/uL RBC (4.10-5.20) X 10*6/uL Hgb (12.0-15.0) g/dL Hct (37.2-46.3) % BUN/Creatinine Ratio 43.67 H (12.00-20.00) Ratio POC Glucose (mg/dL) (70-110) mg/dL Total Protein 5.5 L (6.2-8.2) g/dL Albumin 3.6 L (3.8-4.9) g/dL Assessment and Plan Assessment: Status postoperative day # 4 following an occiput to T2 posterior cervical decompression fusion Right arm weakness, somewhat improved yet the right upper extremity remains weak. The patient remains on Decadron. Multilevel neural foraminal stenosis at levels of C3-C6 and cervical radiculopathy symptoms Acute hypoxemic respiratory failure, postoperative chest x-ray showing low lung volumes, cardiomegaly, interstitial prominence. Clinically improved and the patient is using the incentive spirometer, currently on 2 L of oxygen nasal cannula History of asthma, stable History of prior anterior cervical spine decompression and fusion History of CVA/TIA History of hyperlipidemia History of hypertension History of diastolic heart failure and valvular heart disease, recent echocardiogram done February 2024 estimating a left ventricular ejection fraction of 55 to 60% as well as moderate aortic stenosis History of coronary artery disease, status post double vessel CABG Plan: The patient was seen and evaluated Labs and medications reviewed Stable and on room air Working well with the incentive spirometer Plan is for subacute rehab possibly today I have personally seen and examined the patient, performed the documentation and the assessment and plan as written. Number of minutes spent on the visit: 10 Dictation was produced using [employer] software. Please excuse any grammatical, word or spelling errors.
--- NOTE | 2024-04-30 14:30 | P.DS ---
Providers Date of admission: 04/22/24 11:02 Discharge Diagnosis: [] Hospital Course: Patient is a 79-year-old female with CAD, and for, heart failure, CVA/TIA, hyperlipidemia, hypertension presenting with headache and paresthesia. She states that she has been feeling numbness and tingling in both her upper extremities and lower extremities. She also feels numbness and tingling along with a headache on the occipital portion of her head. She states these symptoms have been going on for over a week. She states that her arms and legs feel heavy and that it has been constant and has not gone away. Patient denies any exacerbating or relieving factors. She describes her headache aching, burning pain. She was here last week undergoing treatment for congestive heart failure and hyponatremia. Patient reports of ongoing cough for the past month. She reports that there is sputum production. Denies any hemoptysis. Patient also notes of having suspicion of oral thrush likely from her inhalers. Patient reports of denies any fever, chills, syncope, trauma, nausea, vomiting, abdominal pain, slurred speech. Admits to shortness of breath. EKG independently interpreted shows Brain CT shows age-related atrophic and chronic small vessel ischemic changes without acute intracranial process seen at this time Sodium 128, potassium 4.0 chloride 93, CO2 27, BUN 20, creatinine 0.81. T98.2 F, DE 89, RR 18, BP 96/61, O2 sat 92 percent on room air ED documentation reviewed. 04/21. Patient seen and examined. States sore throat has improved. Still complaining of headache. Blood work done showed WBC 10.13, hemoglobin 713.7, sodium 129, potassium 3.5, BUN 17.1, creatinine 0.9 04/22/2024 Patient seen in follow-up continues to be followed by multiple consultations awaiting to undergo MRI of the brain along with cervical spine with orthopedics following. Cardiology has been consulted for surgical clearance and although considered moderate to high risk given significant comorbidities, patient is willing to proceed with surgery as she continues to have persistent numbness and tingling with paresthesias of the upper extremities along with heaviness. Patient is afebrile with no reports of chest pain or shortness of breath. Patient does have a cough and will obtain a chest x-ray. 04/23/2024 Patient is seen and evaluated in follow-up today and per orthopedics is tentatively scheduled for surgery on 04/26/2024. Patient continues to report paresthesia and heaviness of her upper extremities with constant tingling. Cardiology consulted for medical clearance. Chest x-ray showing no acute process and patient currently maintained on room air. Patient is afebrile with no reports of chest pain or shortness of breath. Patient has been tolerating diet with no reported nausea or vomiting. 04/24/2024 Patient is seen in follow-up today with orthopedics following closely. Patient will be scheduled for decompression and fusion on 04/26/[address] Butterfield. Patient is maintained on IV Lasix for some mild volume overload and lower extremity edema and is improving. Continue with DuoNeb treatments and other medications. Patient potassium remains 3.5 and will replace per protocol and recommend daily supplementation. Patient is afebrile with no reports of chest pain or shortness of breath. Patient has been tolerating diet with no reported nausea or vomiting. Continue bowel regimen scheduled and as needed. 04/25/2024 Eval today in follow-up sitting up in the chair. She is not reporting any shortness of breath or chest discomfort. Patient is continued on IV Lasix and has had further improvement in her sodium level currently 132. Patient was cleared by cardiology to undergo surgical intervention with overall benefits outweigh the risks. Surgery has been moved up to this afternoon. Patient does continue to report a dry hacking cough has been ongoing for the last 6 weeks. She is receiving a combination of Robitussin and Mucinex for this we will add Tessalon Perles and Cepacol lozenge. 04/26/2024 Patient is seen in follow-up in the ICU status post occipital cervical posterior lateral fusion of C1-2, C2-T2 with orthopedics yesterday. Patient is in the ICU due to hypotension requiring Levophed currently. Blood pressures have improved and recommend weaning Levophed and per nursing staff awaiting further recommendations from orthopedics regarding Levophed. Soft cervical collar noted as patient was unable to tolerate the hard collar due to fit. Patient reports she has minimal feeling and functioning in her right upper extremity and awaiting PT/OT therapy evaluation. Patient is afebrile with no reports of chest pain or shortness of breath. Patient awaiting to eat although denies any nausea or vomiting. 04/27. Patient seen and examined. States right upper extremity weakness has improved slightly compared to yesterday. States she is able to lift her right arm better. 04/28. Patient seen and examined. Continues to state that right upper extremity strength is improved. 04/29/2024 Patient seen and examined. No acute events overnight. Patient has been using incentive spirometer. she states that right upper extremity weakness has imporved. Still rates currenty pain 02/16. States she has not been seen by PT as of yet. 04/30/2024 Patient seen and and examined at bedside. No acute events overnight. She states that her RUE weakness as improved. Has been seen by PT. patient cleared by pulmonology, surgery. She will follow-up with her PCP. Patient prescribed Flexeril, [place] 10, with Duricef 500 mg 3 every 12 hours for 5 days, senna for constipation. She is to follow-up with her PCP. Patient is being [facility] to [facility]. Vital signs reviewed and stable. PHYSICAL EXAMINATION: GENERAL: The patient is alert and oriented x3, ill looking, cervical collar in place HEENT: Pupils are round and equally reacting to light. EOMI. No scleral icterus. No conjunctival pallor. Normocephalic, atraumatic. No pharyngeal erythema. No thyromegaly. CARDIOVASCULAR: S1 and S2 present. No murmurs, rubs, or gallops. PULMONARY: Chest is clear to auscultation, no wheezing or crackles. ABDOMEN: Soft, nontender, nondistended, normoactive bowel sounds. No palpable organomegaly. MUSCULOSKELETAL: No joint swelling or deformity. EXTREMITIES: No cyanosis, clubbing, or pedal edema. NEUROLOGICAL: Left upper extremity 4 x 5, right upper extremity 4 x 5, muscle strength5 x 5 lower extremities SKIN: Surgical incision seen, drain in place A total of greater than 30 minutes of time were spent preparing this complex discharge summary. Patient was discharge on April 30, 2024 at 1:20 PM. Expected date of discharge: 04/30/24 Attending physician: Gurpreet Jackson Consults: 04/19/24 19:56 Consult Physician Routine Consulting Provider: Samy Guadalupe Consult Reason/Comments: headache. Paresthesiais Do you want consulting provider notified?: Yes 04/20/24 13:04 Consult Physician Routine Consulting Provider: Paul Butterfield Consult Reason/Comments: neck pain with episode of weakness uppers and has hyperreflexia Do you want consulting provider notified?: Yes 04/22/24 09:15 Consult Physician Routine Consulting Provider: Cory Garcia Consult Reason/Comments: cardiac clearance for cervical spine surgery Do you want consulting provider notified?: Yes 04/25/24 22:47 Consult Physician Stat Consulting Provider: Ramon Gamboa Consult Reason/Comments: icu management Do you want consulting provider notified?: Already Contacted Primary care physician: Rich Avila Plan - Discharge Summary Discharge Rx Participant: Yes New Discharge Prescriptions: New Cyclobenzaprine [Flexeril] 5 mg PO TID PRN #40 tablet PRN Reason: Muscle Spasm HYDROcodone/APAP 10-325MG [[place] 10-325] 1 tab PO Q4HR PRN #40 tab PRN Reason: Pain cefaDROXiL [Duricef] 500 mg PO Q12HR #10 cap Sennosides/Docusate Sodium [Senna Plus 8.6-50 mg Tablet] 1 each PO DAILY PRN #20 tab PRN Reason: Constipation Continue Clopidogrel [Plavix] 75 mg PO DAILY #30 tab Ipratropium-Albuterol Nebulize [Duoneb 0.5 mg-3 mg/3 ml Soln] 3 ml INHALATION RT-TID PRN PRN Reason: Shortness Of Breath Or Wheezing Ibuprofen [Motrin] 800 mg PO Q8H PRN PRN Reason: Pain Rosuvastatin Calcium [Crestor] 40 mg PO DAILY Metoprolol Succinate (ER) [Toprol XL] 50 mg PO DAILY #60 tab Spironolactone [Aldactone] 12.5 mg PO DAILY 30 Days #30 tab Furosemide [Lasix] 40 mg PO BID 30 Days #60 tab Baclofen 10 mg PO DAILY Fluticasone/Umeclidin/Vilanter [Trelegy Ellipta 100-62.5-25] 1 puff INHALATION RT-DAILY busPIRone HCL 5 mg PO BID Dapagliflozin Propanediol [Farxiga] 10 mg PO DAILY 30 Days #30 tab Discharge Medication List Clopidogrel [Plavix] 75 mg PO DAILY #30 tab 08/19/20 [Rx] Ibuprofen [Motrin] 800 mg PO Q8H PRN 10/26/21 [History] Ipratropium-Albuterol Nebulize [Duoneb 0.5 mg-3 mg/3 ml Soln] 3 ml INHALATION RT-TID PRN 10/26/21 [History] Baclofen 10 mg PO DAILY 04/03/23 [History] Fluticasone/Umeclidin/Vilanter [Trelegy Ellipta 100-62.5-25] 1 puff INHALATION RT-DAILY 03/03/24 [History] Rosuvastatin Calcium [Crestor] 40 mg PO DAILY 04/13/24 [History] busPIRone HCL 5 mg PO BID 04/13/24 [History] Dapagliflozin Propanediol [Farxiga] 10 mg PO DAILY 30 Days #30 tab 04/16/24 [Rx] Furosemide [Lasix] 40 mg PO BID 30 Days #60 tab 04/16/24 [Rx] Metoprolol Succinate (ER) [Toprol XL] 50 mg PO DAILY #60 tab 04/16/24 [Rx] Spironolactone [Aldactone] 12.5 mg PO DAILY 30 Days #30 tab 04/16/24 [Rx] Cyclobenzaprine [Flexeril] 5 mg PO TID PRN #40 tablet 04/30/24 [Rx] HYDROcodone/APAP 10-325MG [[place] 10-325] 1 tab PO Q4HR PRN #40 tab 04/30/24 [Rx] Sennosides/Docusate Sodium [Senna Plus 8.6-50 mg Tablet] 1 each PO DAILY PRN #20 tab 04/30/24 [Rx] cefaDROXiL [Duricef] 500 mg PO Q12HR #10 cap 04/30/24 [Rx] Follow up Appointment(s)/Referral(s): [facility], [NON-STAFF] - 1-2 Days ([facility] will call you to schedule your in home nursing, physical therapy, and occupational therapy visits. ) Paul Butterfield DO [Doctor of Osteopathic Medicine] - 05/09/24 9:30 am Rich Avila MD [Primary Care Provider] - 1-2 days Patient Instructions/Handouts: Anterior Posterior Spinal Fusion (DC), Acute Headache (DC)
[2024-04-30 14:46] VITALS: PULSE 64; TEMP 98.1
[2024-04-30 15:59] VITALS: BP 101/61
== END 2024-04-30 16:31 | DRG 471 ==
LOC: EC 14:35 → 4SSUR 19:58 → OBSVTOIN 04-22 11:02 → 4SSUR 04-22 21:44 → 2SICU 04-25 22:43 → 4SSUR 04-27 16:19
PROVIDERS: ADMIT Hospitalist; ATTEND Hospitalist
PROC: 0RG10J1 Fusion of Cervical Vertebral Joint with Synthetic Substitute, Posterior Approach, Posterior Column, Open Approach (ICD-10-PCS; principal; 2024-04-26)
PROC: 01N10ZZ Release Cervical Nerve, Open Approach (ICD-10-PCS; 2024-04-26)
PROC: 00NW0ZZ Release Cervical Spinal Cord, Open Approach (ICD-10-PCS; 2024-04-26)
PROC: 0RG4071 Fusion of Cervicothoracic Vertebral Joint with Autologous Tissue Substitute, Posterior Approach, Posterior Column, Open Approach (ICD-10-PCS; 2024-04-26)
PROC: 4A11X4G Monitoring of Peripheral Nervous Electrical Activity, Intraoperative, External Approach (ICD-10-PCS; 2024-04-26)
PROC: 3E033XZ Introduction of Vasopressor into Peripheral Vein, Percutaneous Approach (ICD-10-PCS; 2024-04-26)
DX: M47.12 Other spondylosis with myelopathy, cervical region (principal); J96.01 Acute respiratory failure with hypoxia; B37.0 Candidal stomatitis; E87.1 Hypo-osmolality and hyponatremia; J44.1 Chronic obstructive pulmonary disease with (acute) exacerbation; I50.32 Chronic diastolic (congestive) heart failure; M48.52XA Collapsed vertebra, not elsewhere classified, cervical region, initial encounter for fracture; M48.02 Spinal stenosis, cervical region; J84.10 Pulmonary fibrosis, unspecified; I11.0 Hypertensive heart disease with heart failure; I25.10 Atherosclerotic heart disease of native coronary artery without angina pectoris; F41.9 Anxiety disorder, unspecified; F32.A Depression, unspecified; E78.5 Hyperlipidemia, unspecified; M47.22 Other spondylosis with radiculopathy, cervical region; G89.29 Other chronic pain; I48.0 Paroxysmal atrial fibrillation; I35.0 Nonrheumatic aortic (valve) stenosis; I44.0 Atrioventricular block, first degree; E66.9 Obesity, unspecified; G47.33 Obstructive sleep apnea (adult) (pediatric); I95.9 Hypotension, unspecified; G58.8 Other specified mononeuropathies; Z68.34 Body mass index [BMI] 34.0-34.9, adult; Z95.2 Presence of prosthetic heart valve; Z95.1 Presence of aortocoronary bypass graft; Z86.73 Personal history of transient ischemic attack (TIA), and cerebral infarction without residual deficits; Z98.1 Arthrodesis status; Z87.891 Personal history of nicotine dependence; Z85.828 Personal history of other malignant neoplasm of skin; Z91.040 Latex allergy status; Z79.51 Long term (current) use of inhaled steroids; Z79.84 Long term (current) use of oral hypoglycemic drugs; Z79.02 Long term (current) use of antithrombotics/antiplatelets; Z79.899 Other long term (current) drug therapy; Z80.7 Family history of other malignant neoplasms of lymphoid, hematopoietic and related tissues; Z82.49 Family history of ischemic heart disease and other diseases of the circulatory system; Z80.3 Family history of malignant neoplasm of breast
CPT/HCPCS: 36415; 36430; 70450; 70553; 71045; 72040; 72125; 72156; 80048; 80053; 80061; 82607; 82746; 83036; 83605; 83735; 83930; 83935; 84145; 84300; 84443; 84484; 85025; 85027; 85610; 85652; 85730; 86140; 86850; 86900; 86901; 86920; 87636; 87651; 93005; 94640; 94760; 99285

== ENCOUNTER 2024-11-21 13:11 | Emergency (ER) | payer MEDICARE ==
[2024-11-21 13:24] LABS: Glucose,Whole Blood 76 mg/dL (70-110)
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
[2024-11-21 13:30] VITALS: BP 121/59; PULSE 69; RESP 16; TEMP 97.3
[2024-11-21] MEDS: SODIUM CHLORIDE 0.9% 500 ML 500 ML IV ONE (13:53)
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
[2024-11-21 14:06] LABS: Basophils # (A) 0.05 10*3/uL (0.00-0.10); Basophils % (A) 0.5 %; Eosinophils # (A) 0.21 10*3/uL (0.04-0.35); Eosinophils % (A) 2.2 %; HCT 39.5 % (37.2-46.3); HGB 13.2 g/dL (12.0-15.0); Lymphocytes # (A) 2.42 10*3/uL (0.90-5.00); Lymphocytes % (A) 25.4 %; MCH 29.9 pg (27.0-32.0); MCHC 33.4 g/dL (32.0-37.0); MCV 89.4 fL (80.0-97.0); Mean Platelet Volume 10.7 fL (9.5-12.2); Monocytes # (A) 0.67 10*3/uL (0.20-1.00); Neutrophils # (A) 6.14 10*3/uL (1.80-7.70); Neutrophils % (A) 64.6 %; Platelet Count 185 10*3/uL (140-440); RBC 4.42 10*6/uL (4.10-5.20); RDW 13.9 % (11.5-14.5); WBC 9.52 10*3/uL (4.50-10.00)
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
[2024-11-21 14:14] LABS: INR 0.9 (<1.2); Partial Thromboplastin Time 22.7 sec (22.0-30.0); Prothrombin Time 10.4 sec (10.0-12.5)
[2024-11-21] MEDS: DIPH,PERTUS(ACELL)TETVAC-LF 0.5 ML VIAL IM ONE (14:14)
[2024-11-21 14:16] LABS: ALT 54 U/L (4-34); AST 50 U/L (14-36); African American GFR (CKD) 73 (>60 ml/min/1.73 sqM); Albumin 2.8 g/dL (3.5-5.0); Alcohol <10 mg/dL; Alkaline Phosphatase 96 U/L (38-126); Anion Gap 6 mmol/L; Blood Urea Nitrogen 39 mg/dL (7-17); Calcium 7.7 mg/dL (8.4-10.2); Carbon Dioxide 26 mmol/L (22-30); Chloride 104 mmol/L (98-107); Glucose 80 mg/dL (74-99); Non-African American GFR(CKD) 64 (>60 ml/min/1.73 sqM); Potassium 3.2 mmol/L (3.5-5.1); Sodium 136 mmol/L (137-145); Total Bilirubin 0.7 mg/dL (0.2-1.3); Total Protein 5.1 g/dL (6.3-8.2)
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
[2024-11-21 14:39] LABS: Amphetamine Screen,Urine Not Detected (NotDetected); Barbiturate Screen,Urine Not Detected (NotDetected); Benzodiazepines Screen,Urine Detected (NotDetected); Cocaine Screen,Urine Not Detected (NotDetected); Methadone Screen, Urine Not Detected (NotDetected); Opiate Screen,Urine Not Detected (NotDetected); Oxycodone Screen, Urine Not Detected (NotDetected); Phencyclidine Screen,Urine Not Detected (NotDetected); Tricyclic Antidepressant,Urine Not Detected (NotDetected); Urn Cannabinoid Scrn Not Detected (NotDetected)
[2024-11-21] MEDS: POTASSIUM CHLORIDE ER 20 MEQ TAB.ER PO STA (16:26)
[2024-11-21] MEDS: BACITRACIN OINT 1 EACH PACKET TOPICAL ONE (16:39)
== END 2024-11-21 18:16 | disposition home or self-care (01) ==
LOC: EC 13:11
DX: S81.012A Laceration without foreign body, left knee, initial encounter (principal); S30.1XXA Contusion of abdominal wall, initial encounter; S80.811A Abrasion, right lower leg, initial encounter; E87.6 Hypokalemia; R00.1 Bradycardia, unspecified; Z23 Encounter for immunization; Z91.040 Latex allergy status; Z91.09 Other allergy status, other than to drugs and biological substances; Z87.891 Personal history of nicotine dependence; Z86.73 Personal history of transient ischemic attack (TIA), and cerebral infarction without residual deficits; V89.2XXA Person injured in unspecified motor-vehicle accident, traffic, initial encounter; Y92.410 Unspecified street and highway as the place of occurrence of the external cause
CPT/HCPCS: 36415; 70450; 71045; 71260; 72125; 72170; 74177; 80053; 80306; 80320; 83605; 84484; 85025; 85610; 85730; 86850; 86900; 86901; 90471; 90715; 93005; 96361; 96374; 96376; 99285